=== PATIENT | male | born 1955 | race Caucasian/White ===

== ENCOUNTER → 2018-02-17 15:10 | Outpatient (CLI) | payer OTHER, SELFPAY ==
[2018-02-17 16:45] LABS: AST(SGOT) 22 U/L (15-37); Alanine Aminotransfer ALT/SGPT 28 U/L (16-61); Albumin, Serum 3.8 g/dL (3.2-5.0); Alkaline Phosphatase 112 U/L (45-117); Anion Gap 7 (5-15); BUN 16 mg/dL (7-18); BUN/Creat Ratio 12.2 RATIO (10-20); Bilirubin, Direct 0.12 mg/dL (0.00-0.30); Calcium,Total 9.3 mg/dL (8.5-10.1); Chloride 105 mmol/L (98-107); Cholesterol 147 mg/dL (200); Creatinine, Serum 1.31 mg/dL (0.70-1.30); EST Glomerular Filtration Rate 59 mL/min (>60); Est Glom Filt Rate - Afr Amer 71 mL/min (>60); Globulin 3.9 g/dL (2.2-4.2); Glucose 104 mg/dL (74-106); High Density Lipoprotein 42 mg/dL; Protein, Total 7.7 g/dL (6.4-8.2); Sodium Level 138 mmol/L (136-145); Triglycerides 142 mg/dL; Very Low Density Lipoprotein 28 mg/dL (5-40)
== END ==
PROVIDERS: Family Provider Family Medicine; PCP Family Medicine; Visit Provider Internal Medicine Cardiovascular Disease
DX: I10 Essential (primary) hypertension (principal); E78.5 Hyperlipidemia, unspecified
CPT/HCPCS: 80053; 80061; 82248

== ENCOUNTER 2018-04-01 19:16 | Inpatient (IN) | payer MEDICARE, OTHER, SELFPAY ==
[2018-04-01 19:17] VITALS: BP 149/86; PULSE 87; RESP 23; TEMP 37.2; O2SAT 97; BMI 46.2
--- NOTE | 2018-04-01 19:46 | ED.DCSUM_ITS ---
- ER Visit Summary Date of Service: 04/01/18 Chief Complaint: Right lower extremity cellulitis History of Present Illness: The patient is a 62 M sudden redness right foot up the leg since this morning. Sweats with no fevers. 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 Multiple infections in the past, however last time was 2 years ago. States normally needs IV antibiotics till the redness clears. Denies any injuries. No allergies. Physical Examination: General: Alert and oriented ?3, no acute distress HEENT: Normocephalic, atraumatic. Moist mucosa membranes Neck: supple, nontender. Cardiovascular: Regular rate and rhythm, no murmurs Respiratory: Normal breath sounds, symmetric, no distress Abdomen: Soft, nontender, nondistended Extremities: Nontender, no edema, pulses intact ?4. Right lower extremity: Significant lymphedema right lower extremity. There is erythema of the whole foot and redness up the distal leg. There is no injuries distal to the redness. DPs are intact. No calf swelling. No medial thigh swelling. Neuro: no focal neurological deficits. Test Results: [] Emergency Department Course and Treatment: Sepsis protocol initiated. Patient nontoxic. Patient start IV Zosyn and vancomycin. I did discuss with hospitalist for planned admission. Treatment Plan: [] Disposition: Admission Impression: 1. Right lower extremity cellulitis 2. Chronic lymphedema right lower extremity This note was generated with [employer] dictation software. It may contain incorrect words, spelling, and punctuation that were not noted in review of the chart prior to signing ED Disposition - Plan for ED Patient: Disposition: Acute Care Hospital [facility] [place] Chief Complaint: Cellulitis Diagnosis: Cellulitis of right lower extremity
[2018-04-01 20:34] LABS: Absolute Lymphocyte Count 1.09 X10^3/ul (0.83-4.51); Basophil# 0.01 X10^3/uL; Basophil% 0.1 % (0-1); Eosinophil# 0.19 X10^3/uL; Eosinophils% 2.1 % (0-5); Hematocrit 37.8 % (40-54); Hemoglobin 12.6 g/dl (13.0-16.5); Lymphocyte # 1.09 X10^3/ul (4.0); Lymphocyte % 12.2 % (19-41); Mean Corp Hgb Conc 33.3 g/gl (32-36); Mean Corpuscular Volume 92.9 fL (80-94); Mean Platelet Vol. 9.4 fl (6.2-12.0); Monocyte# 0.66 X10^3/uL; Monocyte% 7.4 % (0-10); Platelet Count 137 K/mm3 (150-450); RBC Distribution Width CV 13.2 % (11.6-14.6); Red Blood Count 4.07 M/mm3 (4.6-6.2)
[2018-04-01 20:37] LABS: POSITIVE COUNT NO; POSITIVE DIFFERENTIAL NO; POSITIVE MORPHOLOGY NO
[2018-04-01 20:43] LABS: International Normalized Ratio 1.2; Prothrombin Time (Protime)PT. 14.9 SECONDS (11.7-14.9)
[2018-04-01 20:44] LABS: Partial Thromboplast Time 29.8 Seconds (24.1-36.2)
[2018-04-01 20:45] LABS: Lactic Acid 1.3 mmol/L (0.4-2.0)
[2018-04-01 20:53] LABS: ALB/GLOB Ratio 0.9 RATIO (0.9-2.4); AST(SGOT) 14 U/L (15-37); Alanine Aminotransfer ALT/SGPT 20 U/L (16-61); Albumin, Serum 3.3 g/dL (3.2-5.0); Alkaline Phosphatase 98 U/L (45-117); Anion Gap 9 (5-15); BUN 15 mg/dL (7-18); BUN/Creat Ratio 11.1 RATIO (10-20); Calcium,Total 9.3 mg/dL (8.5-10.1); Chloride 107 mmol/L (98-107); Creatinine, Serum 1.35 mg/dL (0.70-1.30); EST Glomerular Filtration Rate 57 mL/min (>60); Est Glom Filt Rate - Afr Amer 69 mL/min (>60); Estimated Creatinine Clearance 60.43 ml/min; Globulin 3.7 g/dL (2.2-4.2); Glucose 102 mg/dL (74-106); Potassium 3.8 mmol/L (3.5-5.1); Sodium Level 140 mmol/L (136-145)
[2018-04-01 20:54] VITALS: BP 120/65; PULSE 71; RESP 20; TEMP 37.2; O2SAT 98
--- NOTE | 2018-04-01 21:12 | PCM.HP.STD ---
Problem List (1) Lymphedema of right lower extremity Status: Chronic (2) Cellulitis of right lower extremity Status: Acute (3) Automatic implantable cardioverter-defibrillator in situ Status: Chronic (4) Chronic systolic congestive heart failure Status: Chronic (5) Presence of stent in coronary artery Status: Chronic Comment: PTCA/stent to prox LAD 02/02/05; PTCA/stent instent restenosis of prox LAD 10/15/13 (6) Atherosclerotic heart disease of [place] coronary artery without angina pectoris Status: Chronic Qualifiers: Comment: CABG x2- PARK to LAD, SARIAH to OM 06/01/05; PTCA/stent to prox LAD 02/02/05; PTCA/stent instent restenosis of prox LAD 10/15/13 (7) Shortness of breath Status: Chronic (8) Postsurgical aortocoronary bypass status Status: Chronic Comment: CABG x2- PARK to LAD, SARIAH to OM 06/01/05 (9) History of tobacco abuse Status: Acute (10) Family history of CVA Status: Chronic (11) Ischemic cardiomyopathy Status: Chronic (12) Hyperlipidemia Status: Chronic Qualifiers: (13) Hypertension Status: Chronic Qualifiers: (14) ICD (implantable cardioverter-defibrillator) in place Status: Chronic Comment: ICD Implant 2009 History of Present Illness Date of Admission: 04/01/18 Chief Complaint: Right lower extremity redness and swelling The patient is a 62 year old M with extensive cardiac history including coronary artery disease status post stent and two-vessel CABG, chronic systolic heart failure EF 45% and 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 Patient denies any pain, fever nausea vomiting or systemic symptoms. As per the patient, his redness and swelling correlates with cellulitis and had multiple admissions for similar condition in the past and requires about 3-5 days of IV antibiotics in the hospital. In ER, his vitals are stable. There is no leukocytosis. Patient started on IV vancomycin in ER. Past Medical History Past Medical History (Chronic Problems): Chronic Problems (Last Reviewed 01/08/18 @ 14:35 by Divina Ahumada) Lymphedema of right lower extremity (Chronic) Automatic implantable cardioverter-defibrillator in situ (Chronic) Chronic systolic congestive heart failure (Chronic) Presence of stent in coronary artery (Chronic) PTCA/stent to prox LAD 02/02/05; PTCA/stent instent restenosis of prox LAD 10/15/13 Atherosclerotic heart disease of [place] coronary artery without angina pectoris (Chronic) CABG x2- PARK to LAD, SARIAH to OM 06/01/05; PTCA/stent to prox LAD 02/02/05; PTCA/stent instent restenosis of prox LAD 10/15/13 Shortness of breath (Chronic) Postsurgical aortocoronary bypass status (Chronic ~06/01/05) CABG x2- PARK to LAD, SARIAH to OM 06/01/05 Family history of CVA (Chronic) Ischemic cardiomyopathy (Chronic) Hyperlipidemia (Chronic) Hypertension (Chronic) ICD (implantable cardioverter-defibrillator) in place (Chronic ~08/17/10) ICD Implant 2009 Allergies No Known Allergies Allergy (Verified 04/01/18 19:17) Home Medications: Ambulatory Orders Medication Instructions Recorded Atorvastatin Calcium [Lipitor] 40 mg PO DAILY 10/05/13 Montelukast [Singulair] 10 mg PO DAILY 10/05/13 Niacin SA [Niaspan] 1,000 mg PO QHS 10/05/13 Escitalopram Oxalate [Lexapro] 20 mg PO DAILY 11/02/14 Furosemide [Lasix] 40 mg PO DINNER 05/24/17 Furosemide [Lasix] 80 mg PO BREAKFAST 05/24/17 Meloxicam [Mobic] 15 mg PO DAILY 05/24/17 Temazepam [Restoril] 30 mg PO QHS 05/24/17 Ranolazine [Ranexa] 1 tab PO BID 06/08/17 Aspirin [Aspirin, Baby] 81 mg PO QHS 06/09/17 Acetaminophen [Tylenol Tablet] 650 mg PO Q6H PRN PRN tab 06/10/17 gabapentin 600 mg tablet 600 mg PO .Q HS tab 01/06/18 loratadine 10 mg tablet 10 mg PO QDAY 01/06/18 bupropion HCl SR 150 mg tablet,12 150 mg PO BID 01/08/18 hr sustained-release pantoprazole 40 mg tablet,delayed 40 mg PO DAILY tab 01/08/18 release potassium chloride ER 20 mEq 40 meq PO QDAY tab 01/08/18 tablet,extended release ramipril 5 mg capsule 2.5 mg PO DAILY cap 01/08/18 isosorbide mononitrate ER 60 mg 60 mg PO BID #180 tab 01/15/18 tablet,extended release 24 hr nitroglycerin 0.4 mg sublingual 0.4 mg SUBLINGUAL Q5M PRN #25 tab 01/15/18 tablet clopidogrel 75 mg tablet 75 mg PO DAILY #90 tab 01/29/18 carvedilol 25 mg tablet 25 mg PO BID #180 tab 03/10/18 Surgical History: coronary bypass surgery - CABG x 2., total hip arthroplasty, tonsillectomy, - - RLE surgery for sarcoma w/ follow-up excisions, AICD. Psychiatric History: No pertinent psych hx Smoking Status: Former smoker - *Family History Maternal History Items: Heart Disease, Stroke Paternal History Items: Cancer - Father with history of liver CA., No pertinent history VTE Information - Inpt Only VTE Present on Admission: No VTE Mechan Device Prophylaxis: SCD's, Knee High IJEOMA Hose VTE Pharm Prophylaxis ordered?: Yes Patient Problems: Active and Suspected Problems (Last Reviewed 01/08/18 @ 14:35 by Divina Ahumada) Cellulitis of right lower extremity (Acute) - Physical Exam General: Alert, Oriented x3, Cooperative HEENT: Atraumatic, PERRLA, EOMI, Normocephalic Neck: Supple, No JVD, Negative Carotid Bruits Lungs: Clear to auscultation Cardiovascular: Regular rate, Regular Rhythm, Normal S1, Normal S2, No murmurs, - - CABG scar Abdomen: Bowel Sounds Present, Soft, Non Tender, Non-Distended Extremities: Capillary Refill Less than 3 Seconds, Edema Skin: Rash Present - Right foot and lower leg erythema. No tenderness. No obvious open wound Musculoskeletal: No Tenderness to Palpation of Joints or Extremities Neurological: Cranial nerves II-XII grossly intact Psych/Mental Status: Normal Affect, Appropriate Vital Signs Temp Pulse Resp BP Pulse Ox 98.9 F 71 20 H 120/65 98 04/01/18 20:54 04/01/18 20:54 04/01/18 20:54 04/01/18 20:54 04/01/18 20:54 Oxygen Delivery Method Room Air Weight: 331 lb 5.676 oz Body Mass Index (BMI) 46.2 Laboratory Tests Past 24 Hrs 04/01/18 04/01/18 04/01/18 20:14 20:14 20:14 WBC 9.0 RBC 4.07 L Hgb 12.6 L Hct 37.8 L MCV 92.9 MCH 31.0 MCHC 33.3 RDW 13.2 RDW Differential 45.0 H Plt Count 137 L MPV 9.4 Immature Gran % (Auto) 0.200 Neut % (Auto) 78.0 H Lymph % (Auto) 12.2 L Person % (Auto) 7.4 Eos % (Auto) 2.1 Baso % (Auto) 0.1 Absolute Neuts (auto) 7.0 Absolute Lymphs (auto) 1.09 Total Counted Not Reportable PT INR APTT Sodium 140 Potassium 3.8 Chloride 107 Carbon Dioxide 24.0 Anion Gap 9 BUN 15 Creatinine 1.35 H Estim Creat Clear Calc 60.43 Est GFR (MDRD) Af Amer 69 Est GFR (MDRD) Non-Af 57 L BUN/Creatinine Ratio 11.1 Glucose 102 Lactic Acid 1.3 Calcium 9.3 Total Bilirubin 0.40 AST 14 L ALT 20 Alkaline Phosphatase 98 Total Protein 7.0 Albumin 3.3 Globulin 3.7 Albumin/Globulin Ratio 0.9 04/01/18 20:14 WBC RBC Hgb Hct MCV MCH MCHC RDW RDW Differential Plt Count MPV Immature Gran % (Auto) Neut % (Auto) Lymph % (Auto) Person % (Auto) Eos % (Auto) Baso % (Auto) Absolute Neuts (auto) Absolute Lymphs (auto) Total Counted PT 14.9 INR 1.2 APTT 29.8 Sodium Potassium Chloride Carbon Dioxide Anion Gap BUN Creatinine Estim Creat Clear Calc Est GFR (MDRD) Af Amer Est GFR (MDRD) Non-Af BUN/Creatinine Ratio Glucose Lactic Acid Calcium Total Bilirubin AST ALT Alkaline Phosphatase Total Protein Albumin Globulin Albumin/Globulin Ratio Assessment/Plan Active and Suspected Problems (Last Reviewed 01/08/18 @ 14:35 by Divina Ahumada) Cellulitis of right lower extremity (Acute) The patient is a 62 year old M with extensive cardiac history including coronary artery disease status post stent and two-vessel CABG, chronic systolic heart failure EF 45% and 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 Patient denies any pain, fever nausea vomiting or systemic symptoms. As per the patient, his redness and swelling correlates with cellulitis and had multiple admissions for similar condition in the past and requires about 3-5 days of IV antibiotics in the hospital. In ER, his vitals are stable. There is no leukocytosis. Patient started on IV vancomycin in ER. 1. Right lower extremity lymphedema with venous congestion with possibility of cellulitis: It is hard to rule out cellulitis in view of chronic lymphedema and venous congestion. Patient is being admitted on the [facility] floor. Right lower leg venous Doppler ordered. Empirically started on IV cefazolin. Right lower leg elevation, Aj wrap bandage and other conservative management. Wound nurse consult. 2. Cardiac conditions: Coronary artery status post stent, two-vessel CABG, chronic systolic heart failure, EF 35% status post AICD: As per last echo in December 2015, EF 35% with moderate segmental systolic dysfunction and mildly dilated LV. Trivial TR and MR. new cardiac medications. No active cardiac concern. 3. Hypertension, dyslipidemia, history of nicotine use, (ex-smoker): Home medication reconciliation done. DVT prophylaxis: On heparin 5000 units subcutaneous twice daily. Code Visit Inpatient E&M: 27334 Init Hosp L3
[2018-04-01 21:33] VITALS: BP 120/65; PULSE 71; RESP 20; O2SAT 98
[2018-04-01 21:54] VITALS: BMI 44.7; BMI 44.8
[2018-04-01 22:20] VITALS: BP 134/78; PULSE 69; RESP 18; TEMP 36.8; O2SAT 97
[2018-04-01 22:41] LABS: Erythrocyte Sedimentation Rate 32 mm/hr (0-20)
[2018-04-01 22:56] LABS: Bedside Glucose 131 mg/dL (70-110)
[2018-04-01 23:02] LABS: Hemoglobin A1c 5.5 % (4.2-6.3)
[2018-04-01] MEDS: Isosorbide Mononitrate 60 MG Tablet PO (23:02)
[2018-04-01] MEDS: Gabapentin 600 MG Tablet PO (23:02)
[2018-04-01] MEDS: Ranolazine 500 MG Tablet 1000 MG PO (23:02)
[2018-04-01] MEDS: Heparin Injection (Vial) 5,000 UNIT/ML VIAL 5000 UNIT SC (23:03)
[2018-04-01] MEDS: buPROPion (SR) 150 MG Tablet.SA PO (23:03)
[2018-04-01] MEDS: Carvedilol 25 MG Tablet PO (23:03)
[2018-04-01] MEDS: Temazepam 15 MG Capsule 30 MG PO (23:03)
[2018-04-01] MEDS: Aspirin 81 MG TAB.CHEW PO (23:03)
[2018-04-02] MEDS: Cefazolin 1 GM/50 ML BAG IV ×2 (00:21→06:18)
--- NOTE | 2018-04-02 05:55 | VDLE_ITS ---
Reason For Study: RLE lymphedema with cellulitis RIGHT LEFT GSV is normal. GSV is normal. CFV is compressible, spontaneous, phasic, CFV is compressible, spontaneous, phasic, competent and demonstrates normal competent, and demonstrates normal augmentation. augmentation. FV is compressible, spontaneous, phasic, FV is compressible, spontaneous, phasic, competent and demonstrates normal competent and demonstrates normal augmentation. augmentation. POP V is compressible, spontaneous, phasic, POP V is compressible, spontaneous, phasic, competent and demonstrates normal competent and demonstrates normal augmentation. augmentation. T/P Trunk is compressible. T/P Trunk is compressible. PTV is compressible. PTV is compressible. RT PerV is compressible. LT PerV is compressible. PTV and PER V imaged distally only. Procedure Exam performed portable in patient room. Technically difficult due to extreme swelling RLE. A preliminary report was called and/or faxed to [facility]. Interpretation Summary Deep veins of the lower extremities are bilaterally patent and compressible segmentally. There is no evidence of deep vein thrombosis on either side. Valvular competence appears intact within the proximal deep venous systems bilaterally. The greater saphenous veins appear bilaterally patent and compressible segmentally. Portions of the right posterior tibial vein and peroneal vein were not visualized due to swelling. Ordering Physician: Adán Miles Referring Physician: Speedy Mtz Performed By: Chinyere Langston RVT
[2018-04-02 06:15] VITALS: BP 114/59; PULSE 97; RESP 16; TEMP 36.6; O2SAT 97
[2018-04-02 06:28] LABS: Absolute Lymphocyte Count 0.23 X10^3/ul (0.83-4.51); Absolute Neutrophil Count 5.7 X10^3/uL (2.0-7.7); Basophil# 0.01 X10^3/uL; Basophil% 0.2 % (0-1); Eosinophil# 0.11 X10^3/uL; Eosinophils% 1.7 % (0-5); Hematocrit 36.7 % (40-54); Hemoglobin 12.2 g/dl (13.0-16.5); Lymphocyte # 0.23 X10^3/ul (4.0); Lymphocyte % 3.6 % (19-41); Mean Corp Hgb Conc 33.2 g/gl (32-36); Mean Corpuscular Volume 93.4 fL (80-94); Monocyte# 0.23 X10^3/uL; Monocyte% 3.6 % (0-10); Neutrophil # 5.73 X10^3/uL (2.7-7.7); Neutrophil % 90.7 % (47-70); Platelet Count 109 K/mm3 (150-450); RBC Distribution Width CV 13.4 % (11.6-14.6); RBC Distribution Width SD 45.9 fl (35.1-43.9); Red Blood Count 3.93 M/mm3 (4.6-6.2); White Blood Count 6.3 K/mm3 (4.4-11.0)
[2018-04-02 06:30] LABS: Bedside Glucose 130 mg/dL (70-110)
[2018-04-02 06:32] LABS: Differential Indicated SCAN CRITERIA MET; POSITIVE COUNT NO; POSITIVE DIFFERENTIAL YES; POSITIVE MORPHOLOGY NO
[2018-04-02 06:34] LABS: Anion Gap 5 (5-15); BUN 14 mg/dL (7-18); BUN/Creat Ratio 10.4 RATIO (10-20); Calcium,Total 8.9 mg/dL (8.5-10.1); Chloride 109 mmol/L (98-107); Creatinine, Serum 1.35 mg/dL (0.70-1.30); EST Glomerular Filtration Rate 57 mL/min (>60); Est Glom Filt Rate - Afr Amer 69 mL/min (>60); Estimated Creatinine Clearance 62.27 ml/min; Glucose 121 mg/dL (74-106); Potassium 4.2 mmol/L (3.5-5.1); Sodium Level 140 mmol/L (136-145)
[2018-04-02 06:54] LABS: Differential Comment SCANNED
--- NOTE | 2018-04-02 09:51 | PCM.PN.HOSP ---
Patient Problems: Active and Suspected Problems (Last Reviewed 01/08/18 @ 14:35 by Divina Ahumada) Cellulitis of right lower extremity (Acute) Subjective: States that his right leg is still red. Concerned about having his antibiotics changed to oral he said the last time this happened (2013) his leg got worse and he had to be transferred to [facility]. He did not have surgery there, but treated with antibiotics. Vitals/I&O's: Vital Signs Temp Pulse Resp BP Pulse Ox 36.6 C 97 16 114/59 L 97 04/02/18 06:15 04/02/18 06:15 04/02/18 06:15 04/02/18 06:15 04/02/18 06:15 Oxygen Delivery Method Room Air Weight: 149.7 kg Body Mass Index (BMI) 44.7 Intake and Output for Last 24 Hours 03/31/18 04/01/18 04/02/18 23:59 23:59 23:59 Intake Total 1659 / 1659 Output Total 400 / 400 Balance 1259 / 1259 General: Alert, Cooperative, No apparent distress, - - afebrile HEENT: Atraumatic, Normocephalic Lungs: Clear to auscultation, Normal air movement, No rhonchi, No wheeze Cardiovascular: Regular rate, Regular Rhythm, Normal S1, Normal S2, No murmurs Abdomen: Bowel Sounds Present, Soft, Non Tender, Non-Distended, Obese Extremities: - - profound lymphedema of RLE Skin: - - lichenification and stasis dermatitis of RLE. Bright erythema on right foot. No fluctuance note. Psych/Mental Status: Normal Affect, Appropriate Laboratory Results 04/01/18 22:51: POC Glucose 131 H 04/02/18 06:04: WBC 6.3, RBC 3.93 L, Hgb 12.2 L, Hct 36.7 L, MCV 93.4, MCH 31.0, MCHC 33.2, RDW 13.4, RDW Differential 45.9 H, Plt Count 109 L, MPV 9.0, Immature Gran % (Auto) 0.200, Neut % (Auto) 90.7 H, Lymph % (Auto) 3.6 L, [place] % (Auto) 3.6, Eos % (Auto) 1.7, Baso % (Auto) 0.2, Absolute Neuts (auto) 5.7, Absolute Lymphs (auto) 0.23 L, Total Counted Not Reportable, Differential Comment SCANNED 04/02/18 06:04: Sodium 140, Potassium 4.2, Chloride 109 H, Carbon Dioxide 26.0, Anion Gap 5, BUN 14, Creatinine 1.35 H, Estim Creat Clear Calc 62.27, Est GFR (MDRD) Af Amer 69, Est GFR (MDRD) Non-Af 57 L, BUN/Creatinine Ratio 10.4, Glucose 121 H, Calcium 8.9 04/02/18 06:25: POC Glucose 130 H Current Medications Acetaminophen (Tylenol) 650 mg PO Q6H PRN PRN PRN Reason: Mild Pain (scale 0-3)/T>100.7 Aspirin (Aspirin, Baby) 81 mg PO QHS [facility] Last Admin: 04/01/18 23:03 Dose: 81 mg Atorvastatin Calcium (Lipitor) 40 mg PO QHS [facility] Bupropion HCl (Wellbutrin Sr (150mg Tablets)) 150 mg PO BID [facility] Last Admin: 04/01/18 23:03 Dose: 150 mg Carvedilol (Coreg) 25 mg PO BID [facility] Last Admin: 04/01/18 23:03 Dose: 25 mg Clopidogrel Bisulfate (Plavix) 75 mg PO DAILY [facility] Dextrose (D50w Syringe) 0 gm IV X1 PRN; Protocol PRN Reason: Hypoglycemia Docusate Sodium (Colace) 200 mg PO BID PRN PRN PRN Reason: Constipation Escitalopram Oxalate (Lexapro) 20 mg PO DAILY [facility] Furosemide (Lasix) 40 mg PO DINNER [facility] Furosemide (Lasix) 80 mg PO BREAKFAST [facility] Gabapentin (Neurontin) 600 mg PO QHS [facility] Last Admin: 04/01/18 23:02 Dose: 600 mg Glucagon () 1 mg IM .X1 PRN PRN Reason: Hypoglycemia Heparin Sodium (Porcine) (Heparin Na) 5,000 unit SC BID [facility] Last Admin: 04/01/18 23:03 Dose: 5,000 units Cefazolin Sodium () 1 gm in 50 mls @ 150 mls/hr IV Q8 [facility] Last Admin: 04/02/18 06:18 Dose: 150 mls/hr Isosorbide Mononitrate (Imdur) 60 mg PO BID [facility] Last Admin: 04/01/18 23:02 Dose: 60 mg Loratadine (Claritin) 10 mg PO DAILY [facility] Montelukast Sodium (Singulair) 10 mg PO DAILY [facility] Niacin (Niaspan) 1,000 mg PO QHS [facility] Last Admin: 04/01/18 23:02 Dose: 1,000 mg Nitroglycerin (Nitrostat) 0.4 mg SUBLINGUAL Q5M PRN PRN Reason: chest pain Ondansetron HCl (Zofran) 4 mg IV Q6H PRN PRN PRN Reason: Nausea Oxycodone HCl (Oxyir) 5 mg PO Q4H PRN PRN PRN Reason: Moderate Pain (pain scale 4-5) Pantoprazole Sodium (Protonix) 40 mg PO DAILY [facility] Polyethylene Glycol (Miralax) 17 gm PO DAILY [facility] Potassium Chloride (K-Dur) 40 meq PO DAILY [facility] Ramipril (Altace) 2.5 mg PO DAILY [facility] Ranolazine (Ranexa) 1,000 mg PO BID [facility] Last Admin: 04/01/18 23:02 Dose: 1,000 mg Sodium Chloride () 5 - 30 ml IV UD PRN PRN Reason: SALINE FLUSH Temazepam (Restoril) 30 mg PO QHS [facility] Last Admin: 04/01/18 23:03 Dose: 30 mg Medical Necessity - Tobacco Use Smoking Status: Former smoker Assessment/Plan Active and Suspected Problems (Last Reviewed 01/08/18 @ 14:35 by Divina Ahumada) Cellulitis of right lower extremity (Acute) 1. RLE cellulitis suspect strep given bright erythema on Cefazolin pt very concerned about going on oral antibiotics. I informed him that would likely be the plan, but not at this time. He said he wouldn't do it without a fight. I told him that we will continue to assess him and make appropriate decisions, but keep him informed in the process. will consult ID for long-term recs complicated by his lymphedema from sarcoma and LN resection + XRT duplex pending. 2. CKD 3 stable avoid nephrotoxic agents. 3. CAD: stable s/p CABG x2- PARK to LAD, SARIAH to OM 06/01/05; PTCA/stent to prox LAD 02/02/05; PTCA/stent instent restenosis of prox LAD 10/15/13 DAPT, HIS follow up with Dr. Mtz as outpt in July for 6 month follow up (last seen in January) 4. HFrEF EF 35% Dec 17 s/p AICD continue lasix, coreg, imdur, imdur compensated 5. DVT proph: SQ heparin no SCDs given lymphedema Greater than 40 minutes of which greater than 50% of the time was counseling the patient about cellulitis and potential treatment options. Code Visit Inpatient E&M: 79473 Subs Hosp L3
[2018-04-02] MEDS: Furosemide 80 MG Tablet PO (09:59)
[2018-04-02 10:00] VITALS: BP 125/75; PULSE 95; RESP 18; TEMP 36.7; O2SAT 96
[2018-04-02] MEDS: Loratadine 10 MG Tablet PO (10:00)
[2018-04-02] MEDS: Ramipril 2.5 MG Capsule PO (10:00)
[2018-04-02] MEDS: Isosorbide Mononitrate 60 MG Tablet PO ×2 (10:01→22:13)
[2018-04-02] MEDS: Heparin Injection (Vial) 5,000 UNIT/ML VIAL 5000 UNIT SC ×2 (10:01→22:14)
[2018-04-02] MEDS: Clopidogrel Bisulfate 75 MG Tablet PO (10:01)
[2018-04-02] MEDS: Escitalopram Oxalate 20 MG Tablet PO (10:01)
[2018-04-02] MEDS: Polyethylene Glycol 3350 17 GM PACKET PO (10:01)
[2018-04-02] MEDS: Montelukast 10 MG Tablet PO (10:02)
[2018-04-02] MEDS: Ranolazine 500 MG Tablet 1000 MG PO ×2 (10:02→22:13)
[2018-04-02] MEDS: Pantoprazole Sodium 40 MG Tablet PO (10:02)
--- NOTE | 2018-04-02 10:11 | NURSING ---
was asked to see patient for chronic lypmhedema to the RLE. pt states he had sarcoma of the right thigh in the past and the lymphatic system was compromised after surgery and radiation. patient does have lymphedema pumps at home but states he does not use them and refuses to wear compression. pt states that none of it helps so why waste my time. discussed with Dr Butler. there are no open areas noted. there is some dry flaky skin noted. orders received for Ang. will monitor as needed.
--- NOTE | 2018-04-02 10:12 | PN_ITS ---
Patient Problems: Active and Suspected Problems (Last Reviewed 01/08/18 @ 14:35 by Divina Ahumada) Cellulitis of right lower extremity (Acute) Subjective: States that his right leg is still red. Concerned about having his antibiotics changed to oral he said the last time this happened (2013) his leg got worse and he had to be transferred to [facility]. He did not have surgery there, but treated with antibiotics. Vitals/I&O's: Vital Signs Temp Pulse Resp BP Pulse Ox 36.6 C 97 16 114/59 L 97 04/02/18 06:15 04/02/18 06:15 04/02/18 06:15 04/02/18 06:15 04/02/18 06:15 Oxygen Delivery Method Room Air Weight: 149.7 kg Body Mass Index (BMI) 44.7 Intake and Output for Last 24 Hours 03/31/18 04/01/18 04/02/18 23:59 23:59 23:59 Intake Total 1659 / 1659 Output Total 400 / 400 Balance 1259 / 1259 General: Alert, Cooperative, No apparent distress, - - afebrile HEENT: Atraumatic, Normocephalic Lungs: Clear to auscultation, Normal air movement, No rhonchi, No wheeze Cardiovascular: Regular rate, Regular Rhythm, Normal S1, Normal S2, No murmurs Abdomen: Bowel Sounds Present, Soft, Non Tender, Non-Distended, Obese Extremities: - - profound lymphedema of RLE Skin: - - lichenification and stasis dermatitis of RLE. Bright erythema on right foot. No fluctuance note. Psych/Mental Status: Normal Affect, Appropriate Laboratory Results 04/01/18 22:51: POC Glucose 131 H 04/02/18 06:04: WBC 6.3, RBC 3.93 L, Hgb 12.2 L, Hct 36.7 L, MCV 93.4, MCH 31.0 , MCHC 33.2, RDW 13.4, RDW Differential 45.9 H, Plt Count 109 L, MPV 9.0, Immature Gran % (Auto) 0.200, Neut % (Auto) 90.7 H, Lymph % (Auto) 3.6 L, [place] % (Auto) 3.6, Eos % (Auto) 1.7, Baso % (Auto) 0.2, Absolute Neuts (auto) 5.7, Absolute Lymphs (auto) 0.23 L, Total Counted Not Reportable, Differential Comment SCANNED 04/02/18 06:04: Sodium 140, Potassium 4.2, Chloride 109 H, Carbon Dioxide 26.0, Anion Gap 5, BUN 14, Creatinine 1.35 H, Estim Creat Clear Calc 62.27, Est GFR ( MDRD) Af Amer 69, Est GFR (MDRD) Non-Af 57 L, BUN/Creatinine Ratio 10.4, Glucose 121 H, Calcium 8.9 04/02/18 06:25: POC Glucose 130 H Current Medications Acetaminophen (Tylenol) 650 mg PO Q6H PRN PRN PRN Reason: Mild Pain (scale 0-3)/T>100.7 Aspirin (Aspirin, Baby) 81 mg PO QHS REPLACED BY [facility] Last Admin: 04/01/18 23:03 Dose: 81 mg Atorvastatin Calcium (Lipitor) 40 mg PO QHS REPLACED BY [facility] Bupropion HCl (Wellbutrin Sr (150mg Tablets)) 150 mg PO BID REPLACED BY [facility] Last Admin: 04/01/18 23:03 Dose: 150 mg Carvedilol (Coreg) 25 mg PO BID REPLACED BY [facility] Last Admin: 04/01/18 23:03 Dose: 25 mg Clopidogrel Bisulfate (Plavix) 75 mg PO DAILY REPLACED BY [facility] Dextrose (D50w Syringe) 0 gm IV X1 PRN; Protocol PRN Reason: Hypoglycemia Docusate Sodium (Colace) 200 mg PO BID PRN PRN PRN Reason: Constipation Escitalopram Oxalate (Lexapro) 20 mg PO DAILY REPLACED BY [facility] Furosemide (Lasix) 40 mg PO DINNER REPLACED BY [facility] Furosemide (Lasix) 80 mg PO BREAKFAST REPLACED BY [facility] Gabapentin (Neurontin) 600 mg PO QHS REPLACED BY [facility] Last Admin: 04/01/18 23:02 Dose: 600 mg Glucagon () 1 mg IM .X1 PRN PRN Reason: Hypoglycemia Heparin Sodium (Porcine) (Heparin Na) 5,000 unit SC BID REPLACED BY [facility] Last Admin: 04/01/18 23:03 Dose: 5,000 units Cefazolin Sodium () 1 gm in 50 mls @ 150 mls/hr IV Q8 REPLACED BY [facility] Last Admin: 04/02/18 06:18 Dose: 150 mls/hr Isosorbide Mononitrate (Imdur) 60 mg PO BID REPLACED BY [facility] Last Admin: 04/01/18 23:02 Dose: 60 mg Loratadine (Claritin) 10 mg PO DAILY REPLACED BY [facility] Montelukast Sodium (Singulair) 10 mg PO DAILY MARYANNE Niacin (Niaspan) 1,000 mg PO QHS REPLACED BY [facility] Last Admin: 04/01/18 23:02 Dose: 1,000 mg Nitroglycerin (Nitrostat) 0.4 mg SUBLINGUAL Q5M PRN PRN Reason: chest pain Ondansetron HCl (Zofran) 4 mg IV Q6H PRN PRN PRN Reason: Nausea Oxycodone HCl (Oxyir) 5 mg PO Q4H PRN PRN PRN Reason: Moderate Pain (pain scale 4-5) Pantoprazole Sodium (Protonix) 40 mg PO DAILY REPLACED BY [facility] Polyethylene Glycol (Miralax) 17 gm PO DAILY REPLACED BY [facility] Potassium Chloride (K-Dur) 40 meq PO DAILY MARYANNE Ramipril (Altace) 2.5 mg PO DAILY MARYANNE Ranolazine (Ranexa) 1,000 mg PO BID REPLACED BY [facility] Last Admin: 04/01/18 23:02 Dose: 1,000 mg Sodium Chloride () 5 - 30 ml IV UD PRN PRN Reason: SALINE FLUSH Temazepam (Restoril) 30 mg PO QHS REPLACED BY [facility] Last Admin: 04/01/18 23:03 Dose: 30 mg Medical Necessity - Tobacco Use Smoking Status: Former smoker Assessment/Plan Active and Suspected Problems (Last Reviewed 01/08/18 @ 14:35 by Divina Ahumada) Cellulitis of right lower extremity (Acute) 1. RLE cellulitis * suspect strep given bright erythema * on Cefazolin * pt very concerned about going on oral antibiotics. I informed him that would likely be the plan, but not at this time. He said he wouldn't do it without a fight. I told him that we will continue to assess him and make appropriate decisions, but keep him informed in the process. 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 2. CKD 3 * stable * avoid nephrotoxic agents. 3. CAD: * stable * s/p CABG x2- PARK to LAD, SARIAH to OM 06/01/05; PTCA/stent to prox LAD 02/02/05 ; PTCA/stent instent restenosis of prox LAD 10/15/13 * DAPT, HIS * follow up with Dr. Mtz as outpt in July for 6 month follow up (last seen in January) 4. HFrEF * EF 35% Dec 17 * s/p AICD * continue lasix, coreg, imdur, imdur * compensated 5. DVT proph: SQ heparin * no SCDs given lymphedema Greater than 40 minutes of which greater than 50% of the time was counseling the patient about cellulitis and potential treatment options. Code Visit Inpatient E&M: 75500 [facility] L3
[2018-04-02 10:33] VITALS: PULSE 80
--- NOTE | 2018-04-02 10:46 | CASEMGMT ---
JUANCHO POON Face to Face with patient for initial transition planning/care coordination assessment. JUANCHO POON introduced self and role at [facility]. Patient sitting in chair, alert and oriented. Patient willing to participate in assessment and is able to answer all questions appropriately. Care providers, pharmacy, and demographics verified. See link attached. Patient wishes to discharge home, denies need for home health at this time. Patient states he has no further needs or concerns at this time. CM to follow for discharge planning needs that may arise. Disposition Plan: Patient to discharge home with family support and follow-up plans in place. JUANCHO POON will monitor for need for HHC.
[2018-04-02] MEDS: buPROPion (SR) 150 MG Tablet.SA PO ×2 (13:26→22:14)
[2018-04-02] MEDS: Carvedilol 25 MG Tablet PO ×2 (13:26→22:13)
[2018-04-02] MEDS: Cefazolin 2 GM in 0.9% Normal Saline 100 ML IV ×2 (13:27→22:12)
--- NOTE | 2018-04-02 13:28 | PCM.HP.ID ---
Problem List (1) Cellulitis of right lower extremity Status: Acute Reason for Consult: cellulitis Consulted by: Dr. Butler History of Present Illness: The patient is a 62 year old M with chronic RLE lymphedema and recurrent cellulitis who presented 04/01 with 2 days of progressive RLE mild pain, redness, loss of appetite, and malaise. Had noticed tiny scab on one toe of R foot. No fever or chills. Has been getting monthly Bicillin injections for almost a year as preventative measure. Next dose due next week. Frequency of infections is much better since starting injections. Came to ED, given vanc/zosyn x1, now on cefazolin, feeling a little better. Full ROS performed and neg except as noted above. - Medical History Past Medical History (Chronic Problems): Chronic Problems (Last Reviewed 01/08/18 @ 14:35 by Divina Ahumada) Lymphedema of right lower extremity (Chronic) Automatic implantable cardioverter-defibrillator in situ (Chronic) Chronic systolic congestive heart failure (Chronic) Presence of stent in coronary artery (Chronic) PTCA/stent to prox LAD 02/02/05; PTCA/stent instent restenosis of prox LAD 10/15/13 Atherosclerotic heart disease of [place] coronary artery without angina pectoris (Chronic) CABG x2- PARK to LAD, SARIAH to OM 06/01/05; PTCA/stent to prox LAD 02/02/05; PTCA/stent instent restenosis of prox LAD 10/15/13 Shortness of breath (Chronic) Postsurgical aortocoronary bypass status (Chronic ~06/01/05) CABG x2- PARK to LAD, SARIAH to OM 06/01/05 Family history of CVA (Chronic) Ischemic cardiomyopathy (Chronic) Hyperlipidemia (Chronic) Hypertension (Chronic) ICD (implantable cardioverter-defibrillator) in place (Chronic ~08/17/10) ICD Implant 2009 Allergies/Adverse Reactions: Allergies No Known Allergies Allergy (Verified 04/01/18 19:17) Home Medications: Ambulatory Orders Medication Instructions Recorded Atorvastatin Calcium [Lipitor] 40 mg PO DINNER 10/05/13 Montelukast [Singulair] 10 mg PO DAILY 10/05/13 Niacin SA [Niaspan] 1,000 mg PO QHS 10/05/13 Escitalopram Oxalate [Lexapro] 20 mg PO DAILY 11/02/14 Furosemide [Lasix] 40 mg PO DINNER 05/24/17 Furosemide [Lasix] 80 mg PO BREAKFAST 05/24/17 Meloxicam [Mobic] 15 mg PO DAILY 05/24/17 Temazepam [Restoril] 30 mg PO QHS 05/24/17 Ranolazine [Ranexa] 1 tab PO BID 06/08/17 Aspirin [Aspirin, Baby] 81 mg PO QHS 06/09/17 Acetaminophen [Tylenol Tablet] 650 mg PO Q6H PRN PRN tab 06/10/17 gabapentin 600 mg tablet 600 mg PO .Q HS tab 01/06/18 loratadine 10 mg tablet 10 mg PO QDAY 01/06/18 bupropion HCl SR 150 mg tablet,12 150 mg PO BID 01/08/18 hr sustained-release pantoprazole 40 mg tablet,delayed 40 mg PO DAILY tab 01/08/18 release potassium chloride ER 20 mEq 40 meq PO QDAY tab 01/08/18 tablet,extended release ramipril 5 mg capsule 2.5 mg PO DAILY cap 01/08/18 isosorbide mononitrate ER 60 mg 60 mg PO BID #180 tab 01/15/18 tablet,extended release 24 hr nitroglycerin 0.4 mg sublingual 0.4 mg SUBLINGUAL Q5M PRN #25 tab 01/15/18 tablet clopidogrel 75 mg tablet 75 mg PO DAILY #90 tab 01/29/18 carvedilol 25 mg tablet 25 mg PO BID #180 tab 03/10/18 - Social History SMOKING STATUS:: Former smoker Vital Signs Temp Pulse Resp BP Pulse Ox 98.0 F 80 18 125/75 H 96 04/02/18 10:00 04/02/18 10:33 04/02/18 10:00 04/02/18 10:00 04/02/18 10:00 Oxygen Delivery Method Room Air Weight: 149.7 kg Body Mass Index (BMI) 44.7 Laboratory Tests Past 24 Hrs 04/02/18 04/02/18 06:04 06:04 WBC 6.3 RBC 3.93 L Hgb 12.2 L Hct 36.7 L MCV 93.4 MCH 31.0 MCHC 33.2 RDW 13.4 RDW Differential 45.9 H Plt Count 109 L MPV 9.0 Immature Gran % (Auto) 0.200 Neut % (Auto) 90.7 H Lymph % (Auto) 3.6 L [place] % (Auto) 3.6 Eos % (Auto) 1.7 Baso % (Auto) 0.2 Absolute Neuts (auto) 5.7 Absolute Lymphs (auto) 0.23 L Total Counted Not Reportable Differential Comment SCANNED Sodium 140 Potassium 4.2 Chloride 109 H Carbon Dioxide 26.0 Anion Gap 5 BUN 14 Creatinine 1.35 H Estim Creat Clear Calc 62.27 Est GFR (MDRD) Af Amer 69 Est GFR (MDRD) Non-Af 57 L BUN/Creatinine Ratio 10.4 Glucose 121 H Calcium 8.9 - Other Studies Radiology: [] reviewed Other Studies: [] Route of nutrition/ use of supplements: [] Nutritional Intake: [] IV Site: [] Craft Catheter: [] - Physical Exam General: Alert, Oriented x3, Cooperative HEENT: Atraumatic, PERRLA, EOMI Neck: Supple, No Nodes Lungs: Clear to auscultation, Normal air movement Cardiovascular: Regular rate, Regular Rhythm Abdomen: Bowel Sounds Present, Soft, Non Tender, Non-Distended Extremities: Edema - RLE edema Skin: Rash Present - mild RLE erythema IV Site: Peripheral, without redness Musculoskeletal: No Tenderness to Palpation of Joints or Extremities Neurological: Cranial nerves II-XII grossly intact - Assessment/Plan Antibiotics: [] Assessment/Plan: [] Active and Suspected Problems (Last Reviewed 01/08/18 @ 14:35 by Divina Ahumada) Cellulitis of right lower extremity (Acute) Mild. Improving. Normal wbc, no fever. Cont iv cefazolin. Has been getting suppressive Bicillin injections as an outpatient from his PCP. Thank you, will follow. D/w Dr. Butler.
[2018-04-02 14:52] VITALS: BP 117/54; PULSE 95; RESP 18; TEMP 36.9; O2SAT 97
[2018-04-02] MEDS: Acetaminophen 325 MG Tablet 650 MG PO ×2 (16:12→22:47)
[2018-04-02 22:00] VITALS: BP 127/75; PULSE 78; RESP 18; TEMP 36.9; O2SAT 100
[2018-04-02] MEDS: Aspirin 81 MG TAB.CHEW PO (22:13)
[2018-04-02] MEDS: Gabapentin 600 MG Tablet PO (22:13)
[2018-04-02] MEDS: Atorvastatin Calcium 40 MG Tablet PO (22:13)
[2018-04-02] MEDS: 0.9% NaCl Peripheral Flush Adult/Peds IV (22:34)
[2018-04-02] MEDS: Temazepam 15 MG Capsule 30 MG PO (22:34)
[2018-04-02 22:45] LABS: Bedside Glucose 116 mg/dL (70-110)
[2018-04-03 04:00] VITALS: BP 94/40; PULSE 73; RESP 18; TEMP 37; O2SAT 97
[2018-04-03 04:08] VITALS: PULSE 73
[2018-04-03] MEDS: Cefazolin 2 GM in 0.9% Normal Saline 100 ML IV ×3 (05:49→22:28)
[2018-04-03 06:51] LABS: Bedside Glucose 147 mg/dL (70-110)
[2018-04-03] MEDS: Heparin Injection (Vial) 5,000 UNIT/ML VIAL 5000 UNIT SC ×2 (08:22→22:28)
[2018-04-03] MEDS: Loratadine 10 MG Tablet PO (08:22)
[2018-04-03] MEDS: Isosorbide Mononitrate 60 MG Tablet PO ×2 (08:23→22:27)
[2018-04-03] MEDS: Polyethylene Glycol 3350 17 GM PACKET PO (08:23)
[2018-04-03] MEDS: Pantoprazole Sodium 40 MG Tablet PO (08:23)
[2018-04-03] MEDS: Furosemide 80 MG Tablet PO (08:23)
[2018-04-03] MEDS: buPROPion (SR) 150 MG Tablet.SA PO ×2 (08:23→22:28)
[2018-04-03] MEDS: Ranolazine 500 MG Tablet 1000 MG PO ×2 (08:24→22:27)
[2018-04-03] MEDS: Carvedilol 25 MG Tablet PO ×2 (08:24→22:28)
[2018-04-03] MEDS: Ramipril 2.5 MG Capsule PO (08:25)
[2018-04-03] MEDS: Escitalopram Oxalate 20 MG Tablet PO (08:25)
[2018-04-03] MEDS: Clopidogrel Bisulfate 75 MG Tablet PO (08:26)
[2018-04-03] MEDS: Montelukast 10 MG Tablet PO (08:26)
--- NOTE | 2018-04-03 09:37 | PCM.PN.HOSP ---
Patient Problems: Active and Suspected Problems (Last Reviewed 01/08/18 @ 14:35 by Divina Ahumada) Cellulitis of right lower extremity (Acute) Subjective: Leg feeling better. Notes that it is more red when he stands on it. Vitals/I&O's: Vital Signs Temp Pulse Resp BP Pulse Ox 37.0 C 73 18 94/40 L 97 04/03/18 04:00 04/03/18 04:08 04/03/18 04:00 04/03/18 04:00 04/03/18 04:00 Oxygen Delivery Method Room Air Weight: 149.7 kg Body Mass Index (BMI) 44.7 Intake and Output for Last 24 Hours 04/01/18 04/02/18 04/03/18 23:59 23:59 23:59 Intake Total 1659 / 1659 951 / 951 Output Total 400 / 400 Balance 1259 / 1259 951 / 951 General: Alert, Cooperative, No apparent distress HEENT: Atraumatic, Normocephalic Extremities: Edema - RLE Skin: - - decreased erythema of RLE. Lichenification of RLE. Lymphedema RLE Musculoskeletal: No Tenderness to Palpation of Joints or Extremities, No Muscle Wasting Neurological: Neuro grossly intact, Sensory exam intact to light touch and pain Psych/Mental Status: Normal Affect, Appropriate Laboratory Results 04/02/18 22:38: POC Glucose 116 H 04/03/18 06:47: POC Glucose 147 H Current Medications Acetaminophen (Tylenol) 650 mg PO Q6H PRN PRN PRN Reason: Mild Pain (scale 0-3)/T>100.7 Last Admin: 04/02/18 22:47 Dose: 650 mg Aspirin (Aspirin, Baby) 81 mg PO QHS [facility] Last Admin: 04/02/18 22:13 Dose: 81 mg Atorvastatin Calcium (Lipitor) 40 mg PO QHS [facility] Last Admin: 04/02/18 22:13 Dose: 40 mg Bupropion HCl (Wellbutrin Sr (150mg Tablets)) 150 mg PO BID [facility] Last Admin: 04/03/18 08:23 Dose: 150 mg Carvedilol (Coreg) 25 mg PO BID [facility] Last Admin: 04/03/18 08:24 Dose: 25 mg Clopidogrel Bisulfate (Plavix) 75 mg PO DAILY [facility] Last Admin: 04/03/18 08:26 Dose: 75 mg Dextrose (D50w Syringe) 0 gm IV X1 PRN; Protocol PRN Reason: Hypoglycemia Docusate Sodium (Colace) 200 mg PO BID PRN PRN PRN Reason: Constipation Emollient Ointment (Eucerin Intensive Repair) 1 applic TOPICAL DAILY MARYANNE PRN Reason: Protocol Last Admin: 04/03/18 08:16 Dose: 1 applicatio Escitalopram Oxalate (Lexapro) 20 mg PO DAILY [facility] Last Admin: 04/03/18 08:25 Dose: 20 mg Furosemide (Lasix) 40 mg PO DINNER [facility] Furosemide (Lasix) 80 mg PO BREAKFAST [facility] Last Admin: 04/03/18 08:23 Dose: 80 mg Gabapentin (Neurontin) 600 mg PO QHS [facility] Last Admin: 04/02/18 22:13 Dose: 600 mg Glucagon () 1 mg IM .X1 PRN PRN Reason: Hypoglycemia Heparin Sodium (Porcine) (Heparin Na) 5,000 unit SC BID [facility] Last Admin: 04/03/18 08:22 Dose: 5,000 units Cefazolin Sodium 2 gm/ Sodium (Chloride) 110 mls @ 150 mls/hr IV Q8 [facility] Last Admin: 04/03/18 05:49 Dose: 150 mls/hr Isosorbide Mononitrate (Imdur) 60 mg PO BID [facility] Last Admin: 04/03/18 08:23 Dose: 60 mg Loratadine (Claritin) 10 mg PO DAILY [facility] Last Admin: 04/03/18 08:22 Dose: 10 mg Montelukast Sodium (Singulair) 10 mg PO DAILY [facility] Last Admin: 04/03/18 08:26 Dose: 10 mg Niacin (Niaspan) 1,000 mg PO QHS [facility] Last Admin: 04/02/18 22:13 Dose: 1,000 mg Nitroglycerin (Nitrostat) 0.4 mg SUBLINGUAL Q5M PRN PRN Reason: chest pain Ondansetron HCl (Zofran) 4 mg IV Q6H PRN PRN PRN Reason: Nausea Oxycodone HCl (Oxyir) 5 mg PO Q4H PRN PRN PRN Reason: Moderate Pain (pain scale 4-5) Pantoprazole Sodium (Protonix) 40 mg PO DAILY [facility] Last Admin: 04/03/18 08:23 Dose: 40 mg Polyethylene Glycol (Miralax) 17 gm PO DAILY [facility] Last Admin: 04/03/18 08:23 Dose: 17 gm Potassium Chloride (K-Dur) 40 meq PO DAILY [facility] Last Admin: 04/03/18 08:24 Dose: 40 meq Ramipril (Altace) 2.5 mg PO DAILY [facility] Last Admin: 04/03/18 08:25 Dose: 2.5 mg Ranolazine (Ranexa) 1,000 mg PO BID [facility] Last Admin: 04/03/18 08:24 Dose: 1,000 mg Sodium Chloride () 5 - 30 ml IV UD PRN PRN Reason: SALINE FLUSH Last Admin: 04/02/18 22:34 Dose: 20 ml Temazepam (Restoril) 30 mg PO QHS [facility] Last Admin: 04/02/18 22:34 Dose: 30 mg Medical Necessity - Tobacco Use Smoking Status: Former smoker Assessment/Plan Active and Suspected Problems (Last Reviewed 01/08/18 @ 14:35 by Divina Ahumada) Cellulitis of right lower extremity (Acute) 1. RLE cellulitis suspect strep given bright erythema on Cefazolin pt very concerned about going on oral antibiotics. I informed him that would likely be the plan, but not at this time. He said he wouldn't do it without a fight. I told him that we will continue to assess him and make appropriate decisions, but keep him informed in the process. 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 CKD 3 stable avoid nephrotoxic agents. 3. CAD: stable s/p CABG x2- PARK to LAD, SARIAH to OM 06/01/05; PTCA/stent to prox LAD 02/02/05; PTCA/stent instent restenosis of prox LAD 10/15/13 DAPT, HIS follow up with Dr. Mtz as outpt in July for 6 month follow up (last seen in January) 4. HFrEF EF 35% Dec 17 s/p AICD continue lasix, coreg, imdur, imdur compensated 5. DVT proph: SQ heparin no SCDs given lymphedema Code Visit Inpatient E&M: 49125 Subs Hosp L2
--- NOTE | 2018-04-03 09:40 | PN_ITS ---
Patient Problems: Active and Suspected Problems (Last Reviewed 01/08/18 @ 14:35 by Divina Ahumada) Cellulitis of right lower extremity (Acute) Subjective: Leg feeling better. Notes that it is more red when he stands on it. Vitals/I&O's: Vital Signs Temp Pulse Resp BP Pulse Ox 37.0 C 73 18 94/40 L 97 04/03/18 04:00 04/03/18 04:08 04/03/18 04:00 04/03/18 04:00 04/03/18 04:00 Oxygen Delivery Method Room Air Weight: 149.7 kg Body Mass Index (BMI) 44.7 Intake and Output for Last 24 Hours 04/01/18 04/02/18 04/03/18 23:59 23:59 23:59 Intake Total 1659 / 1659 951 / 951 Output Total 400 / 400 Balance 1259 / 1259 951 / 951 General: Alert, Cooperative, No apparent distress HEENT: Atraumatic, Normocephalic Extremities: Edema - RLE Skin: - - decreased erythema of RLE. Lichenification of RLE. Lymphedema RLE Musculoskeletal: No Tenderness to Palpation of Joints or Extremities, No Muscle Wasting Neurological: Neuro grossly intact, Sensory exam intact to light touch and pain Psych/Mental Status: Normal Affect, Appropriate Laboratory Results 04/02/18 22:38: POC Glucose 116 H 04/03/18 06:47: POC Glucose 147 H Current Medications Acetaminophen (Tylenol) 650 mg PO Q6H PRN PRN PRN Reason: Mild Pain (scale 0-3)/T>100.7 Last Admin: 04/02/18 22:47 Dose: 650 mg Aspirin (Aspirin, Baby) 81 mg PO QHS [facility] Last Admin: 04/02/18 22:13 Dose: 81 mg Atorvastatin Calcium (Lipitor) 40 mg PO QHS [facility] Last Admin: 04/02/18 22:13 Dose: 40 mg Bupropion HCl (Wellbutrin Sr (150mg Tablets)) 150 mg PO BID [facility] Last Admin: 04/03/18 08:23 Dose: 150 mg Carvedilol (Coreg) 25 mg PO BID [facility] Last Admin: 04/03/18 08:24 Dose: 25 mg Clopidogrel Bisulfate (Plavix) 75 mg PO DAILY [facility] Last Admin: 04/03/18 08:26 Dose: 75 mg Dextrose (D50w Syringe) 0 gm IV X1 PRN; Protocol PRN Reason: Hypoglycemia Docusate Sodium (Colace) 200 mg PO BID PRN PRN PRN Reason: Constipation Emollient Ointment (Eucerin Intensive Repair) 1 applic TOPICAL DAILY MARYANNE PRN Reason: Protocol Last Admin: 04/03/18 08:16 Dose: 1 applicatio Escitalopram Oxalate (Lexapro) 20 mg PO DAILY [facility] Last Admin: 04/03/18 08:25 Dose: 20 mg Furosemide (Lasix) 40 mg PO DINNER [facility] Furosemide (Lasix) 80 mg PO BREAKFAST [facility] Last Admin: 04/03/18 08:23 Dose: 80 mg Gabapentin (Neurontin) 600 mg PO QHS [facility] Last Admin: 04/02/18 22:13 Dose: 600 mg Glucagon () 1 mg IM .X1 PRN PRN Reason: Hypoglycemia Heparin Sodium (Porcine) (Heparin Na) 5,000 unit SC BID [facility] Last Admin: 04/03/18 08:22 Dose: 5,000 units Cefazolin Sodium 2 gm/ Sodium (Chloride) 110 mls @ 150 mls/hr IV Q8 [facility] Last Admin: 04/03/18 05:49 Dose: 150 mls/hr Isosorbide Mononitrate (Imdur) 60 mg PO BID [facility] Last Admin: 04/03/18 08:23 Dose: 60 mg Loratadine (Claritin) 10 mg PO DAILY [facility] Last Admin: 04/03/18 08:22 Dose: 10 mg Montelukast Sodium (Singulair) 10 mg PO DAILY [facility] Last Admin: 04/03/18 08:26 Dose: 10 mg Niacin (Niaspan) 1,000 mg PO QHS [facility] Last Admin: 04/02/18 22:13 Dose: 1,000 mg Nitroglycerin (Nitrostat) 0.4 mg SUBLINGUAL Q5M PRN PRN Reason: chest pain Ondansetron HCl (Zofran) 4 mg IV Q6H PRN PRN PRN Reason: Nausea Oxycodone HCl (Oxyir) 5 mg PO Q4H PRN PRN PRN Reason: Moderate Pain (pain scale 4-5) Pantoprazole Sodium (Protonix) 40 mg PO DAILY [facility] Last Admin: 04/03/18 08:23 Dose: 40 mg Polyethylene Glycol (Miralax) 17 gm PO DAILY [facility] Last Admin: 04/03/18 08:23 Dose: 17 gm Potassium Chloride (K-Dur) 40 meq PO DAILY [facility] Last Admin: 04/03/18 08:24 Dose: 40 meq Ramipril (Altace) 2.5 mg PO DAILY [facility] Last Admin: 04/03/18 08:25 Dose: 2.5 mg Ranolazine (Ranexa) 1,000 mg PO BID [facility] Last Admin: 04/03/18 08:24 Dose: 1,000 mg Sodium Chloride () 5 - 30 ml IV UD PRN PRN Reason: SALINE FLUSH Last Admin: 04/02/18 22:34 Dose: 20 ml Temazepam (Restoril) 30 mg PO QHS [facility] Last Admin: 04/02/18 22:34 Dose: 30 mg Medical Necessity - Tobacco Use Smoking Status: Former smoker Assessment/Plan Active and Suspected Problems (Last Reviewed 01/08/18 @ 14:35 by Divina Ahumada) Cellulitis of right lower extremity (Acute) 1. RLE cellulitis * suspect strep given bright erythema * on Cefazolin * pt very concerned about going on oral antibiotics. I informed him that would likely be the plan, but not at this time. He said he wouldn't do it without a fight. I told him that we will continue to assess him and make appropriate decisions, but keep him informed in the process. 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 CKD 3 * stable * avoid nephrotoxic agents. 3. CAD: * stable * s/p CABG x2- PARK to LAD, SARIAH to OM 06/01/05; PTCA/stent to prox LAD 02/02/05 ; PTCA/stent instent restenosis of prox LAD 10/15/13 * DAPT, HIS * follow up with Dr. Mtz as outpt in July for 6 month follow up (last seen in January) 4. HFrEF * EF 35% Dec 17 * s/p AICD * continue lasix, coreg, imdur, imdur * compensated 5. DVT proph: SQ heparin * no SCDs given lymphedema Code Visit Inpatient E&M: 43842 Subs Hosp L2
[2018-04-03 10:00] VITALS: BP 117/66; PULSE 69; RESP 18; TEMP 36.7; O2SAT 99
--- NOTE | 2018-04-03 10:20 | PCM.PN.ID ---
Patient Problems: Active and Suspected Problems (Last Reviewed 01/08/18 @ 14:35 by Divina Ahumada) Cellulitis of right lower extremity (Acute) Subjective: Feeling better, leg less red and sore, no fever - Physical Exam General: Alert, Cooperative Lungs: Clear to auscultation, Normal air movement Cardiovascular: Regular rate, Regular Rhythm Abdomen: Soft, Non Tender, Non-Distended Skin: Rash Present - RLE less red Vital Signs Temp Pulse Resp BP Pulse Ox 98.6 F 73 18 94/40 L 97 04/03/18 04:00 04/03/18 04:08 04/03/18 04:00 04/03/18 04:00 04/03/18 04:00 Oxygen Delivery Method Room Air Weight: 149.7 kg Body Mass Index (BMI) 44.7 Intake and Output for Last 24 Hours 04/01/18 04/02/18 04/03/18 23:59 23:59 23:59 Intake Total 1659 / 1659 951 / 951 Output Total 400 / 400 Balance 1259 / 1259 951 / 951 POC Glucose 04/03/18 04/02/18 06:47 22:38 POC Glucose 147 H 116 H Medical Necessity - Tobacco Use Smoking Status: Former smoker Route of nutrition/ use of supplements: [] Nutritional Intake: [] IV Site: [] Craft Catheter: [] - Assessment/Plan Antibiotics: [] Assessment/Plan: [] Active and Suspected Problems (Last Reviewed 01/08/18 @ 14:35 by Divina Ahumada) Cellulitis of right lower extremity (Acute) Mild. Improving. Normal wbc, no fever. Cont iv cefazolin. Has been getting suppressive Bicillin injections as an outpatient from his PCP. Plan on home on po abx tomorrow if his leg continues to improve will follow. D/w Dr. Butler.
--- NOTE | 2018-04-03 10:56 | NURSING ---
the right leg redness is slightly improved today. still some warmth noted. no open areas. will continue to monitor as needed.
[2018-04-03 11:55] LABS: Bedside Glucose 123 mg/dL (70-110)
[2018-04-03] MEDS: 0.9% NaCl Peripheral Flush Adult/Peds IV (13:38)
[2018-04-03 16:00] VITALS: BP 107/61; PULSE 63; RESP 18; TEMP 36.9; O2SAT 63
[2018-04-03] MEDS: Furosemide 40 MG Tablet PO (16:58)
[2018-04-03 17:01] LABS: Bedside Glucose 98 mg/dL (70-110)
[2018-04-03 20:21] VITALS: BP 140/79; PULSE 70; RESP 18; TEMP 36.6; O2SAT 97
[2018-04-03] MEDS: Aspirin 81 MG TAB.CHEW PO (22:27)
[2018-04-03] MEDS: Atorvastatin Calcium 40 MG Tablet PO (22:27)
[2018-04-03] MEDS: Gabapentin 600 MG Tablet PO (22:28)
[2018-04-03 22:50] LABS: Bedside Glucose 132 mg/dL (70-110)
[2018-04-03] MEDS: Temazepam 15 MG Capsule 30 MG PO (23:17)
[2018-04-04 02:52] VITALS: BP 114/63; PULSE 66; RESP 18; TEMP 36.4; O2SAT 97
[2018-04-04] MEDS: Cefazolin 2 GM in 0.9% Normal Saline 100 ML IV (05:33)
[2018-04-04 06:55] LABS: Bedside Glucose 102 mg/dL (70-110)
[2018-04-04 08:15] VITALS: PULSE 64
[2018-04-04 08:17] VITALS: BP 117/76; PULSE 62; RESP 18; TEMP 36.4; O2SAT 97
[2018-04-04] MEDS: Furosemide 80 MG Tablet PO (08:21)
--- NOTE | 2018-04-04 08:38 | PCM.PN.HOSP ---
Patient Problems: Active and Suspected Problems (Last Reviewed 01/08/18 @ 14:35 by Divina Ahumada) Cellulitis of right lower extremity (Acute) Subjective: had an infiltration of an IV in RUE. Had several attempts, but finally got an IV in LUE. Vitals/I&O's: Vital Signs Temp Pulse Resp BP Pulse Ox 36.4 C L 62 18 117/76 97 04/04/18 08:17 04/04/18 08:17 04/04/18 08:17 04/04/18 08:17 04/04/18 08:17 Oxygen Delivery Method Room Air Weight: 149.7 kg Body Mass Index (BMI) 44.7 Intake and Output for Last 24 Hours 04/02/18 04/03/18 04/04/18 23:59 23:59 23:59 Intake Total 1659 / 1659 951 / 951 771 / 771 Output Total 400 / 400 Balance 1259 / 1259 951 / 951 771 / 771 General: Alert, No apparent distress HEENT: Atraumatic, Normocephalic Extremities: Edema Skin: - - Lymphedema RLE with lichenifacation. Decreased erythema of RLE Psych/Mental Status: Normal Affect, Appropriate Laboratory Results 04/03/18 11:35: POC Glucose 123 H 04/03/18 16:54: POC Glucose 98 04/03/18 22:43: POC Glucose 132 H 04/04/18 06:50: POC Glucose 102 Current Medications Acetaminophen (Tylenol) 650 mg PO Q6H PRN PRN PRN Reason: Mild Pain (scale 0-3)/T>100.7 Last Admin: 04/02/18 22:47 Dose: 650 mg Aspirin (Aspirin, Baby) 81 mg PO QHS [facility] Last Admin: 04/03/18 22:27 Dose: 81 mg Atorvastatin Calcium (Lipitor) 40 mg PO QHS [facility] Last Admin: 04/03/18 22:27 Dose: 40 mg Bupropion HCl (Wellbutrin Sr (150mg Tablets)) 150 mg PO BID [facility] Last Admin: 04/03/18 22:28 Dose: 150 mg Carvedilol (Coreg) 25 mg PO BID [facility] Last Admin: 04/03/18 22:28 Dose: 25 mg Clopidogrel Bisulfate (Plavix) 75 mg PO DAILY [facility] Last Admin: 04/03/18 08:26 Dose: 75 mg Dextrose (D50w Syringe) 0 gm IV X1 PRN; Protocol PRN Reason: Hypoglycemia Docusate Sodium (Colace) 200 mg PO BID PRN PRN PRN Reason: Constipation Emollient Ointment (Eucerin Intensive Repair) 1 applic TOPICAL DAILY MARYANNE PRN Reason: Protocol Last Admin: 04/03/18 08:16 Dose: 1 applicatio Escitalopram Oxalate (Lexapro) 20 mg PO DAILY [facility] Last Admin: 04/03/18 08:25 Dose: 20 mg Furosemide (Lasix) 40 mg PO DINNER [facility] Last Admin: 04/03/18 16:58 Dose: 40 mg Furosemide (Lasix) 80 mg PO BREAKFAST [facility] Last Admin: 04/04/18 08:21 Dose: 80 mg Gabapentin (Neurontin) 600 mg PO QHS [facility] Last Admin: 04/03/18 22:28 Dose: 600 mg Glucagon () 1 mg IM .X1 PRN PRN Reason: Hypoglycemia Heparin Sodium (Porcine) (Heparin Na) 5,000 unit SC BID [facility] Last Admin: 04/03/18 22:28 Dose: 5,000 units Cefazolin Sodium 2 gm/ Sodium (Chloride) 110 mls @ 150 mls/hr IV Q8 [facility] Last Admin: 04/04/18 05:33 Dose: 150 mls/hr Isosorbide Mononitrate (Imdur) 60 mg PO BID [facility] Last Admin: 04/03/18 22:27 Dose: 60 mg Loratadine (Claritin) 10 mg PO DAILY [facility] Last Admin: 04/03/18 08:22 Dose: 10 mg Montelukast Sodium (Singulair) 10 mg PO DAILY [facility] Last Admin: 04/03/18 08:26 Dose: 10 mg Niacin (Niaspan) 1,000 mg PO QHS [facility] Last Admin: 04/03/18 22:27 Dose: 1,000 mg Nitroglycerin (Nitrostat) 0.4 mg SUBLINGUAL Q5M PRN PRN Reason: chest pain Ondansetron HCl (Zofran) 4 mg IV Q6H PRN PRN PRN Reason: Nausea Oxycodone HCl (Oxyir) 5 mg PO Q4H PRN PRN PRN Reason: Moderate Pain (pain scale 4-5) Pantoprazole Sodium (Protonix) 40 mg PO DAILY [facility] Last Admin: 04/03/18 08:23 Dose: 40 mg Polyethylene Glycol (Miralax) 17 gm PO DAILY [facility] Last Admin: 04/03/18 08:23 Dose: 17 gm Potassium Chloride (K-Dur) 40 meq PO DAILY [facility] Last Admin: 04/03/18 08:24 Dose: 40 meq Ramipril (Altace) 2.5 mg PO DAILY [facility] Last Admin: 04/03/18 08:25 Dose: 2.5 mg Ranolazine (Ranexa) 1,000 mg PO BID [facility] Last Admin: 04/03/18 22:27 Dose: 1,000 mg Sodium Chloride () 5 - 30 ml IV UD PRN PRN Reason: SALINE FLUSH Last Admin: 04/03/18 13:38 Dose: 10 ml Temazepam (Restoril) 30 mg PO QHS [facility] Last Admin: 04/03/18 23:17 Dose: 30 mg Medical Necessity - Tobacco Use Smoking Status: Former smoker Assessment/Plan Active and Suspected Problems (Last Reviewed 01/08/18 @ 14:35 by Divina Ahumada) Cellulitis of right lower extremity (Acute) 1. RLE cellulitis suspect strep given bright erythema on Cefazolin pt very concerned about going on oral antibiotics. I informed him that would likely be the plan, but not at this time. He said he wouldn't do it without a fight. I told him that we will continue to assess him and make appropriate decisions, but keep him informed in the process. 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 Await ID to see and make further recommendations. 2. CKD 3 stable avoid nephrotoxic agents. 3. CAD: stable s/p CABG x2- PARK to LAD, SARIAH to OM 06/01/05; PTCA/stent to prox LAD 02/02/05; PTCA/stent instent restenosis of prox LAD 10/15/13 DAPT, HIS follow up with Dr. Mtz as outpt in July for 6 month follow up (last seen in January) 4. HFrEF EF 35% Dec 17 s/p AICD continue lasix, coreg, imdur, imdur compensated 5. DVT proph: SQ heparin no SCDs given lymphedema Code Visit Inpatient E&M: 66056 Subs Hosp L1
--- NOTE | 2018-04-04 08:40 | PN_ITS ---
Patient Problems: Active and Suspected Problems (Last Reviewed 01/08/18 @ 14:35 by Divina Ahumada) Cellulitis of right lower extremity (Acute) Subjective: had an infiltration of an IV in RUE. Had several attempts, but finally got an IV in LUE. Vitals/I&O's: Vital Signs Temp Pulse Resp BP Pulse Ox 36.4 C L 62 18 117/76 97 04/04/18 08:17 04/04/18 08:17 04/04/18 08:17 04/04/18 08:17 04/04/18 08:17 Oxygen Delivery Method Room Air Weight: 149.7 kg Body Mass Index (BMI) 44.7 Intake and Output for Last 24 Hours 04/02/18 04/03/18 04/04/18 23:59 23:59 23:59 Intake Total 1659 / 1659 951 / 951 771 / 771 Output Total 400 / 400 Balance 1259 / 1259 951 / 951 771 / 771 General: Alert, No apparent distress HEENT: Atraumatic, Normocephalic Extremities: Edema Skin: - - Lymphedema RLE with lichenifacation. Decreased erythema of RLE Psych/Mental Status: Normal Affect, Appropriate Laboratory Results 04/03/18 11:35: POC Glucose 123 H 04/03/18 16:54: POC Glucose 98 04/03/18 22:43: POC Glucose 132 H 04/04/18 06:50: POC Glucose 102 Current Medications Acetaminophen (Tylenol) 650 mg PO Q6H PRN PRN PRN Reason: Mild Pain (scale 0-3)/T>100.7 Last Admin: 04/02/18 22:47 Dose: 650 mg Aspirin (Aspirin, Baby) 81 mg PO QHS [facility] Last Admin: 04/03/18 22:27 Dose: 81 mg Atorvastatin Calcium (Lipitor) 40 mg PO QHS [facility] Last Admin: 04/03/18 22:27 Dose: 40 mg Bupropion HCl (Wellbutrin Sr (150mg Tablets)) 150 mg PO BID [facility] Last Admin: 04/03/18 22:28 Dose: 150 mg Carvedilol (Coreg) 25 mg PO BID [facility] Last Admin: 04/03/18 22:28 Dose: 25 mg Clopidogrel Bisulfate (Plavix) 75 mg PO DAILY [facility] Last Admin: 04/03/18 08:26 Dose: 75 mg Dextrose (D50w Syringe) 0 gm IV X1 PRN; Protocol PRN Reason: Hypoglycemia Docusate Sodium (Colace) 200 mg PO BID PRN PRN PRN Reason: Constipation Emollient Ointment (Eucerin Intensive Repair) 1 applic TOPICAL DAILY MARYANNE PRN Reason: Protocol Last Admin: 04/03/18 08:16 Dose: 1 applicatio Escitalopram Oxalate (Lexapro) 20 mg PO DAILY [facility] Last Admin: 04/03/18 08:25 Dose: 20 mg Furosemide (Lasix) 40 mg PO DINNER [facility] Last Admin: 04/03/18 16:58 Dose: 40 mg Furosemide (Lasix) 80 mg PO BREAKFAST [facility] Last Admin: 04/04/18 08:21 Dose: 80 mg Gabapentin (Neurontin) 600 mg PO QHS [facility] Last Admin: 04/03/18 22:28 Dose: 600 mg Glucagon () 1 mg IM .X1 PRN PRN Reason: Hypoglycemia Heparin Sodium (Porcine) (Heparin Na) 5,000 unit SC BID [facility] Last Admin: 04/03/18 22:28 Dose: 5,000 units Cefazolin Sodium 2 gm/ Sodium (Chloride) 110 mls @ 150 mls/hr IV Q8 [facility] Last Admin: 04/04/18 05:33 Dose: 150 mls/hr Isosorbide Mononitrate (Imdur) 60 mg PO BID [facility] Last Admin: 04/03/18 22:27 Dose: 60 mg Loratadine (Claritin) 10 mg PO DAILY [facility] Last Admin: 04/03/18 08:22 Dose: 10 mg Montelukast Sodium (Singulair) 10 mg PO DAILY [facility] Last Admin: 04/03/18 08:26 Dose: 10 mg Niacin (Niaspan) 1,000 mg PO QHS [facility] Last Admin: 04/03/18 22:27 Dose: 1,000 mg Nitroglycerin (Nitrostat) 0.4 mg SUBLINGUAL Q5M PRN PRN Reason: chest pain Ondansetron HCl (Zofran) 4 mg IV Q6H PRN PRN PRN Reason: Nausea Oxycodone HCl (Oxyir) 5 mg PO Q4H PRN PRN PRN Reason: Moderate Pain (pain scale 4-5) Pantoprazole Sodium (Protonix) 40 mg PO DAILY [facility] Last Admin: 04/03/18 08:23 Dose: 40 mg Polyethylene Glycol (Miralax) 17 gm PO DAILY [facility] Last Admin: 04/03/18 08:23 Dose: 17 gm Potassium Chloride (K-Dur) 40 meq PO DAILY [facility] Last Admin: 04/03/18 08:24 Dose: 40 meq Ramipril (Altace) 2.5 mg PO DAILY [facility] Last Admin: 04/03/18 08:25 Dose: 2.5 mg Ranolazine (Ranexa) 1,000 mg PO BID [facility] Last Admin: 04/03/18 22:27 Dose: 1,000 mg Sodium Chloride () 5 - 30 ml IV UD PRN PRN Reason: SALINE FLUSH Last Admin: 04/03/18 13:38 Dose: 10 ml Temazepam (Restoril) 30 mg PO QHS [facility] Last Admin: 04/03/18 23:17 Dose: 30 mg Medical Necessity - Tobacco Use Smoking Status: Former smoker Assessment/Plan Active and Suspected Problems (Last Reviewed 01/08/18 @ 14:35 by Divina Ahumada) Cellulitis of right lower extremity (Acute) 1. RLE cellulitis * suspect strep given bright erythema * on Cefazolin * pt very concerned about going on oral antibiotics. I informed him that would likely be the plan, but not at this time. He said he wouldn't do it without a fight. I told him that we will continue to assess him and make appropriate decisions, but keep him informed in the process. 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 Await ID to see and make further recommendations. 2. CKD 3 * stable * avoid nephrotoxic agents. 3. CAD: * stable * s/p CABG x2- PARK to LAD, SARIAH to OM 06/01/05; PTCA/stent to prox LAD 02/02/05 ; PTCA/stent instent restenosis of prox LAD 10/15/13 * DAPT, HIS * follow up with Dr. Mtz as outpt in July for 6 month follow up (last seen in January) 4. HFrEF * EF 35% Dec 17 * s/p AICD * continue lasix, coreg, imdur, imdur * compensated 5. DVT proph: SQ heparin * no SCDs given lymphedema Code Visit Inpatient E&M: 88951 Subs Hosp L1
--- NOTE | 2018-04-04 10:07 | PCM.PN.ID ---
Patient Problems: Active and Suspected Problems (Last Reviewed 01/08/18 @ 14:35 by Divina Ahumada) Cellulitis of right lower extremity (Acute) Subjective: Feeling better, leg less sore, no fever - Physical Exam General: Alert, Cooperative Lungs: Clear to auscultation, Normal air movement Cardiovascular: Regular rate, Regular Rhythm Abdomen: Soft, Non Tender, Non-Distended Extremities: Edema Skin: Rash Present - nearly resolved RLE redness Vital Signs Temp Pulse Resp BP Pulse Ox 97.6 F L 62 18 117/76 97 04/04/18 08:17 04/04/18 08:17 04/04/18 08:17 04/04/18 08:17 04/04/18 08:17 Oxygen Delivery Method Room Air Weight: 149.7 kg Body Mass Index (BMI) 44.7 Intake and Output for Last 24 Hours 04/02/18 04/03/18 04/04/18 23:59 23:59 23:59 Intake Total 1659 / 1659 951 / 951 771 / 771 Output Total 400 / 400 Balance 1259 / 1259 951 / 951 771 / 771 POC Glucose 04/04/18 04/03/18 04/03/18 06:50 22:43 16:54 POC Glucose 102 132 H 98 04/03/18 11:35 POC Glucose 123 H Medical Necessity - Tobacco Use Smoking Status: Former smoker Route of nutrition/ use of supplements: [] Nutritional Intake: [] IV Site: [] Craft Catheter: [] - Assessment/Plan Antibiotics: [] Assessment/Plan: [] Active and Suspected Problems (Last Reviewed 01/08/18 @ 14:35 by Divina Ahumada) Cellulitis of right lower extremity (Acute) Mild. Improving. Normal wbc, no fever. On iv cefazolin. Has been getting suppressive Bicillin injections as an outpatient from his PCP. Cellulitis nearly resolved. Ok for d/c home on po keflex 500mg tid for one more week. will follow. D/w Dr. Butler.
[2018-04-04] MEDS: Ranolazine 500 MG Tablet 1000 MG PO (10:19)
[2018-04-04] MEDS: Montelukast 10 MG Tablet PO (10:19)
[2018-04-04] MEDS: Escitalopram Oxalate 20 MG Tablet PO (10:19)
[2018-04-04] MEDS: Pantoprazole Sodium 40 MG Tablet PO (10:19)
[2018-04-04] MEDS: Isosorbide Mononitrate 60 MG Tablet PO (10:19)
[2018-04-04] MEDS: Polyethylene Glycol 3350 17 GM PACKET PO (10:19)
[2018-04-04] MEDS: buPROPion (SR) 150 MG Tablet.SA PO (10:19)
[2018-04-04] MEDS: Clopidogrel Bisulfate 75 MG Tablet PO (10:19)
[2018-04-04] MEDS: Loratadine 10 MG Tablet PO (10:20)
[2018-04-04] MEDS: Ramipril 2.5 MG Capsule PO (10:20)
[2018-04-04] MEDS: Carvedilol 25 MG Tablet PO (10:20)
[2018-04-04] MEDS: Heparin Injection (Vial) 5,000 UNIT/ML VIAL 5000 UNIT SC (10:21)
--- NOTE | 2018-04-04 10:52 | PCM.DC ---
- Discharge Diagnoses Current Active Problems: Current Active and Chronic Problems (Last Reviewed 01/08/18 @ 14:35 by Divina Ahumada) Lymphedema of right lower extremity (Chronic) Cellulitis of right lower extremity (Acute) You will use the following diet at home:: Cardiac Your food should be the consistency of: Regular Your liquids should be the consistency of: Regular/Thin Discharge Activity: Return to Normal Activity Call your doctor if you observe: Fever of 101 or Higher, - - worsening swelling and erythema of right leg. Allergies/Adverse Reactions: Allergies No Known Allergies Allergy (Verified 04/01/18 19:17) Medications to take at Discharge Atorvastatin Calcium [Lipitor] 40 mg PO DINNER 10/05/13 Montelukast [Singulair] 10 mg PO DAILY 10/05/13 Niacin SA [Niaspan] 1,000 mg PO QHS 10/05/13 Escitalopram Oxalate [Lexapro] 20 mg PO DAILY 11/02/14 Furosemide [Lasix] 40 mg PO DINNER 05/24/17 Furosemide [Lasix] 80 mg PO BREAKFAST 05/24/17 Meloxicam [Mobic] 15 mg PO DAILY 05/24/17 Temazepam [Restoril] 30 mg PO QHS 05/24/17 Ranolazine [Ranexa] 1 tab PO BID 06/08/17 Aspirin [Aspirin, Baby] 81 mg PO QHS 06/09/17 Acetaminophen [Tylenol Tablet] 650 mg PO Q6H PRN PRN tab 06/10/17 gabapentin 600 mg tablet 600 mg PO .Q HS tab 01/06/18 loratadine 10 mg tablet 10 mg PO QDAY 01/06/18 bupropion HCl SR 150 mg tablet,12 hr sustained-release 150 mg PO BID 01/08/18 pantoprazole 40 mg tablet,delayed release 40 mg PO DAILY tab 01/08/18 potassium chloride ER 20 mEq tablet,extended release 40 meq PO QDAY tab 01/08/18 ramipril 5 mg capsule 2.5 mg PO DAILY cap 01/08/18 isosorbide mononitrate ER 60 mg tablet,extended release 24 hr 60 mg PO BID #180 tab 01/15/18 nitroglycerin 0.4 mg sublingual tablet 0.4 mg SUBLINGUAL Q5M PRN #25 tab 01/15/18 clopidogrel 75 mg tablet 75 mg PO DAILY #90 tab 01/29/18 carvedilol 25 mg tablet 25 mg PO BID #180 tab 03/10/18 Cephalexin [Keflex] 500 mg PO Q8 #21 cap 04/04/18 The following prescriptions were given: Cephalexin [Keflex] 500 mg PO Q8 #21 cap Primary Care Physician: Speedy Boswell MD [Primary Care Provider] - Within 2 Weeks Please Follow Up With: Rick Vilchis MD When: PRN Proposed Discharge Date: 04/04/18
--- NOTE | 2018-04-04 10:54 | PCM.DC.SUM ---
Discharge Date and Diagnosis - Problem List Patient Problems: Active and Suspected Problems (Last Reviewed 01/08/18 @ 14:35 by Divina Ahumada) Cellulitis of right lower extremity (Acute) Date of Admission: 04/01/18 Date of Discharge: 04/04/18 - Primary Discharge Diagnosis Active and Suspected Problems (Last Reviewed 01/08/18 @ 14:35 by Divina Ahumada) Cellulitis of right lower extremity (Acute) - Secondary Discharge Diagnosis Chronic Problems (Last Reviewed 01/08/18 @ 14:35 by Divina Ahumada) Lymphedema of right lower extremity (Chronic) Automatic implantable cardioverter-defibrillator in situ (Chronic) Chronic systolic congestive heart failure (Chronic) Presence of stent in coronary artery (Chronic) PTCA/stent to prox LAD 02/02/05; PTCA/stent instent restenosis of prox LAD 10/15/13 Atherosclerotic heart disease of [place] coronary artery without angina pectoris (Chronic) CABG x2- PARK to LAD, SARIAH to OM 06/01/05; PTCA/stent to prox LAD 02/02/05; PTCA/stent instent restenosis of prox LAD 10/15/13 Shortness of breath (Chronic) Postsurgical aortocoronary bypass status (Chronic ~06/01/05) CABG x2- PARK to LAD, SARIAH to OM 06/01/05 Family history of CVA (Chronic) Ischemic cardiomyopathy (Chronic) Hyperlipidemia (Chronic) Hypertension (Chronic) ICD (implantable cardioverter-defibrillator) in place (Chronic ~08/17/10) ICD Implant 2009 Hospital Course and Treatment Consultations 04/01/18 23:23 Consult: 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 Seen @ wound center [facility] Operations: None Procedures: - - Duplex Right leg. 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 Followed by radiation treatment. Patient has chronic lymphedema of the lower extremity. Patient has also had intermittent cellulitis of that leg. Patient was not septic but was started on IV antibiotics. Patient was put on ceftezole and and did well. Patient expressed apprehension about being put on to oral antibiotics given his history of coronary him being put on to prematurely and developed worsening cellulitis. Patient was monitored and actually did improve over the past couple days. Patient was seen in consultation by Dr. Vilchis of infectious disease and patient will be discharged with Keflex 500 twice daily for 1 week. Patient has been receiving monthly shots of penicillin through his primary care doctor. I advised patient to follow-up with infectious disease to see if those would still be indicated or not. Patient is due for his next shot next week but I told the patient to hold off on that as he is currently on antibiotics. [] Discharge Diet: Low fat/ Low Cholesterol Discharge Activity: Return to Normal Activity Call your doctor if you observe: Fever of 101 or Higher, - - worsening swelling and erythema of right leg. Home Medications: Medications to take at Discharge Atorvastatin Calcium [Lipitor] 40 mg PO DINNER 10/05/13 Montelukast [Singulair] 10 mg PO DAILY 10/05/13 Niacin SA [Niaspan] 1,000 mg PO QHS 10/05/13 Escitalopram Oxalate [Lexapro] 20 mg PO DAILY 11/02/14 Furosemide [Lasix] 40 mg PO DINNER 05/24/17 Furosemide [Lasix] 80 mg PO BREAKFAST 05/24/17 Meloxicam [Mobic] 15 mg PO DAILY 05/24/17 Temazepam [Restoril] 30 mg PO QHS 05/24/17 Ranolazine [Ranexa] 1 tab PO BID 06/08/17 Aspirin [Aspirin, Baby] 81 mg PO QHS 06/09/17 Acetaminophen [Tylenol Tablet] 650 mg PO Q6H PRN PRN tab 06/10/17 gabapentin 600 mg tablet 600 mg PO .Q HS tab 01/06/18 loratadine 10 mg tablet 10 mg PO QDAY 01/06/18 bupropion HCl SR 150 mg tablet,12 hr sustained-release 150 mg PO BID 01/08/18 pantoprazole 40 mg tablet,delayed release 40 mg PO DAILY tab 01/08/18 potassium chloride ER 20 mEq tablet,extended release 40 meq PO QDAY tab 01/08/18 ramipril 5 mg capsule 2.5 mg PO DAILY cap 01/08/18 isosorbide mononitrate ER 60 mg tablet,extended release 24 hr 60 mg PO BID #180 tab 01/15/18 nitroglycerin 0.4 mg sublingual tablet 0.4 mg SUBLINGUAL Q5M PRN #25 tab 01/15/18 clopidogrel 75 mg tablet 75 mg PO DAILY #90 tab 01/29/18 carvedilol 25 mg tablet 25 mg PO BID #180 tab 03/10/18 Cephalexin [Keflex] 500 mg PO Q8 #21 cap 04/04/18 Following Prescrptions Were Given to Patient: Cephalexin [Keflex] 500 mg PO Q8 #21 cap Primary Care Physician: Speedy Boswell MD [Primary Care Provider] - Within 2 Weeks Please Follow Up With: Rick Vilchis MD When: PRN Disposition: Home Minutes spent on discharge:: 32 Patient Condition:: Good Medical Necessity - Tobacco Use Smoking Status: Former smoker Meaningful Use Info Meaningful Use Diagnoses (Choose all that apply): None applicable Code Visit Inpatient E&M: 97232 Disch Hosp
--- NOTE | 2018-04-04 10:57 | DS.PCM_ITS ---
Discharge Date and Diagnosis - Problem List Patient Problems: Active and Suspected Problems (Last Reviewed 01/08/18 @ 14:35 by Divina Ahumada) Cellulitis of right lower extremity (Acute) Date of Admission: 04/01/18 Date of Discharge: 04/04/18 - Primary Discharge Diagnosis Active and Suspected Problems (Last Reviewed 01/08/18 @ 14:35 by Divina Ahumada) Cellulitis of right lower extremity (Acute) - Secondary Discharge Diagnosis Chronic Problems (Last Reviewed 01/08/18 @ 14:35 by Divina Ahumada) Lymphedema of right lower extremity (Chronic) Automatic implantable cardioverter-defibrillator in situ (Chronic) Chronic systolic congestive heart failure (Chronic) Presence of stent in coronary artery (Chronic) PTCA/stent to prox LAD 02/02/05; PTCA/stent instent restenosis of prox LAD Atherosclerotic heart disease of [place] coronary artery without angina pectoris (Chronic) CABG x2- PARK to LAD, SARIAH to OM 06/01/05; PTCA/stent to prox LAD 02/02/05; PTCA/stent instent restenosis of prox LAD 10/15/13 Shortness of breath (Chronic) Postsurgical aortocoronary bypass status (Chronic ~06/01/05) CABG x2- PARK to LAD, SARIAH to OM 06/01/05 Family history of CVA (Chronic) Ischemic cardiomyopathy (Chronic) Hyperlipidemia (Chronic) Hypertension (Chronic) ICD (implantable cardioverter-defibrillator) in place (Chronic ~08/17/10) ICD Implant 2009 Hospital Course and Treatment Consultations 04/01/18 23:23 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 Seen @ wound center [facility] Operations: None Procedures: - - Duplex Right leg. 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 Followed by radiation treatment. Patient has chronic lymphedema of the lower extremity. Patient has also had intermittent cellulitis of that leg. Patient was not septic but was started on IV antibiotics. Patient was put on ceftezole and and did well. Patient expressed apprehension about being put on to oral antibiotics given his history of coronary him being put on to prematurely and developed worsening cellulitis. Patient was monitored and actually did improve over the past couple days. Patient was seen in consultation by Dr. Vilchis of infectious disease and patient will be discharged with Keflex 500 twice daily for 1 week. Patient has been receiving monthly shots of penicillin through his primary care doctor. I advised patient to follow-up with infectious disease to see if those would still be indicated or not. Patient is due for his next shot next week but I told the patient to hold off on that as he is currently on antibiotics. [] Discharge Diet: Low fat/ Low Cholesterol Discharge Activity: Return to Normal Activity Call your doctor if you observe: Fever of 101 or Higher, - - worsening swelling and erythema of right leg. Home Medications: Medications to take at Discharge Atorvastatin Calcium [Lipitor] 40 mg PO DINNER 10/05/13 Montelukast [Singulair] 10 mg PO DAILY 10/05/13 Niacin SA [Niaspan] 1,000 mg PO QHS 10/05/13 Escitalopram Oxalate [Lexapro] 20 mg PO DAILY 11/02/14 Furosemide [Lasix] 40 mg PO DINNER 05/24/17 Furosemide [Lasix] 80 mg PO BREAKFAST 05/24/17 Meloxicam [Mobic] 15 mg PO DAILY 05/24/17 Temazepam [Restoril] 30 mg PO QHS 05/24/17 Ranolazine [Ranexa] 1 tab PO BID 06/08/17 Aspirin [Aspirin, Baby] 81 mg PO QHS 06/09/17 Acetaminophen [Tylenol Tablet] 650 mg PO Q6H PRN PRN tab 06/10/17 gabapentin 600 mg tablet 600 mg PO .Q HS tab 01/06/18 loratadine 10 mg tablet 10 mg PO QDAY 01/06/18 bupropion HCl SR 150 mg tablet,12 hr sustained-release 150 mg PO BID 01/08/18 pantoprazole 40 mg tablet,delayed release 40 mg PO DAILY tab 01/08/18 potassium chloride ER 20 mEq tablet,extended release 40 meq PO QDAY tab ramipril 5 mg capsule 2.5 mg PO DAILY cap 01/08/18 isosorbide mononitrate ER 60 mg tablet,extended release 24 hr 60 mg PO BID #180 tab 01/15/18 nitroglycerin 0.4 mg sublingual tablet 0.4 mg SUBLINGUAL Q5M PRN #25 tab clopidogrel 75 mg tablet 75 mg PO DAILY #90 tab 01/29/18 carvedilol 25 mg tablet 25 mg PO BID #180 tab 03/10/18 Cephalexin [Keflex] 500 mg PO Q8 #21 cap 04/04/18 Following Prescrptions Were Given to Patient: Cephalexin [Keflex] 500 mg PO Q8 #21 cap Primary Care Physician: Speedy Boswell MD [Primary Care Provider] - Within 2 Weeks Please Follow Up With: Rick Vilchis MD When: PRN Disposition: Home Minutes spent on discharge:: 32 Patient Condition:: Good Medical Necessity - Tobacco Use Smoking Status: Former smoker Meaningful Use Info Meaningful Use Diagnoses (Choose all that apply): None applicable Code Visit Inpatient E&M: 33874 Disch Hosp
[2018-04-04 12:12] VITALS: BP 120/69; PULSE 64; RESP 18; TEMP 36.6; O2SAT 97
--- NOTE | 2018-04-07 15:35 | CASEMGMT ---
JUANCHO POON Discharge Follow-up Phone Call: DOMINIQUE: Estevan Strata: 3 Call Date: 04/07/18 Discharge Date: 04/04/18 Time of Call: 1530 Duration: 5 min Admitting Diagnosis: RLE Cellulitis with lymphedema JUANCHO POON spoke with patient regarding follow-up since discharged from hospital. Patient states that he is doing well. No questions or concerns regarding discharge instructions or medication. Patient was able to pickup prescription without any problems. Patient stated he received excellent care while at [facility]. Patient has follow-up appt scheduled with PCP for next week.
== END 2018-04-04 12:25 | disposition home or self-care (01) | DRG 603 ==
LOC: ED 20:34 → MS3 21:30
PROVIDERS: Admitting Provider Internal Medicine; Emergency Provider Emergency Medicine; Family Provider Family Medicine; PCP Family Medicine
DX: L03.115 Cellulitis of right lower limb (principal); I50.22 Chronic systolic (congestive) heart failure; I13.0 Hypertensive heart and chronic kidney disease with heart failure and stage 1 through stage 4 chronic kidney disease, or unspecified chronic kidney disease; I89.0 Lymphedema, not elsewhere classified; I25.10 Atherosclerotic heart disease of native coronary artery without angina pectoris; E78.5 Hyperlipidemia, unspecified; N18.3 Chronic kidney disease, stage 3 (moderate); I25.5 Ischemic cardiomyopathy; Z95.5 Presence of coronary angioplasty implant and graft; Z95.1 Presence of aortocoronary bypass graft; Z82.3 Family history of stroke; Z87.891 Personal history of nicotine dependence; Z95.810 Presence of automatic (implantable) cardiac defibrillator; Z79.82 Long term (current) use of aspirin
CPT/HCPCS: 36415; 80048; 80053; 82962; 83036; 83605; 85025; 85610; 85652; 85730; 87040; 93970; 99284; J7030; J7040; A4216

== ENCOUNTER 2018-04-26 10:37 | Emergency (ER) | payer OTHER, SELFPAY ==
[2018-04-26 10:38] VITALS: BP 149/101; PULSE 76; RESP 22; TEMP 36.6; O2SAT 98; BMI 43.4
--- NOTE | 2018-04-26 10:51 | RAD_ITS ---
STUDY: X-RAY - RIGHT SHOULDER REASON FOR EXAM: Male, 63 years old. Patient fell yesterday. TECHNIQUE: For view(s) of the shoulder. COMPARISON: None. FINDINGS: Normal glenohumeral articulation. There is degenerative arthrosis of the acromioclavicular joint without inferior osseous spur formation. Normal acromion. Normal humeral head and visualized proximal humerus. The soft tissue structures are unremarkable. There is no demonstrated fracture. Normal visualized pulmonary apex. RAD/Shoulder min 2 Views IMPRESSION: Degenerative changes in the acromioclavicular joint. No demonstrated acute fracture or dislocation. Electronically Signed: Reginald Stack MD at 11:14 EDT Tel , Service support ,
--- NOTE | 2018-04-26 11:21 | ED.VISSUMM ---
- ER Visit Summary Date of Service: 04/26/18 Chief Complaint: [Injury right shoulder] History of Present Illness: The patient is a 63 M [presents the emergency department complaint of injury to his right shoulder that occurred yesterday. Patient states that he was hot yesterday went to step outside and fell injuring his right shoulder. Patient was able to catch himself and initially did not think much of the injury. Patient subsequently went and sat in a recliner when he try to push out of the recliner with his arms to get up he had a severe pain in the right shoulder radiating down his arm. Patient has pain with certain motions of the arm. Patient denies any other injuries.] Physical Examination: [HEENT-PERRLA, EOMI. Cranial nerves II through XII grossly intact. TMs clear. Mucous membranes moist. No adenopathy. Cardiovascular-regular rate and rhythm without murmur or ectopy Lungs-clear to auscultation, chest wall stable without crepitus or subcu emphysema Abdomen-normoactive bowel sounds, soft, nontender, no rebound or rigidity, no peritoneal signs. Extremities-intact ?4, normal range of motion, normal pulses, atraumatic]. Patient has some mild discomfort about the glenohumeral joint. Patient has pain with abduction at the glenohumeral joint and has difficulty resisting abduction. He is neurovascular intact distally. Deep tendon reflexes are plus 2 out of 4 bilaterally at the bicep, tricep, and brachioradialis. Test Results: [X-rays of the right shoulder obtained showed degenerative changes at the acromioclavicular joint but no fractures or dislocations.] Emergency Department Course and Treatment: [Patient was given a sling] Treatment Plan: [Patient given a prescription for [place] for pain. Patient will be referred to orthopedics on-call.] Disposition: [Discharged home in stable condition] Impression: [Right shoulder strain possible internal derangement] This note was generated with [employer] dictation software. It may contain incorrect words, spelling, and punctuation that were not noted in review of the chart prior to signing ED Disposition - Plan for ED Patient: Chief Complaint: Upper Extremity Injury Referrals: Speedy Boswell MD [Primary Care Provider] -
--- NOTE | 2018-04-26 11:24 | ED.DEP ---
ED Disposition - Plan for ED Patient: Chief Complaint: Upper Extremity Injury Instructions: ED Sprain Shoulder Prescriptions: Hydrocodone/Acetaminophen [[place] 5-325 Tablet] 1 - 2 ea PO 4X/DAY PRN PRN 3 Days #12 tab PRN Reason: Pain Referrals: Speedy Boswell MD [Primary Care Provider] - Herminio Biswas MD [STAFF PHYSICIAN] - 3-5 Days
[2018-04-26 11:32] VITALS: BP 138/84; PULSE 71; RESP 16; O2SAT 98
== END 2018-04-26 11:32 | disposition home or self-care (01) ==
PROVIDERS: Emergency Provider Emergency Medicine; Family Provider Family Medicine; PCP Family Medicine
DX: S46.911A Strain of unspecified muscle, fascia and tendon at shoulder and upper arm level, right arm, initial encounter (principal); W19.XXXA Unspecified fall, initial encounter; Y93.9 Activity, unspecified; Y92.89 Other specified places as the place of occurrence of the external cause; Y99.9 Unspecified external cause status; I25.10 Atherosclerotic heart disease of native coronary artery without angina pectoris; I10 Essential (primary) hypertension; E78.00 Pure hypercholesterolemia, unspecified; K21.9 Gastro-esophageal reflux disease without esophagitis; I25.2 Old myocardial infarction
CPT/HCPCS: 73030; 99283

== ENCOUNTER 2018-06-08 20:03 | Emergency (ER) | payer OTHER, SELFPAY ==
[2018-06-08 20:04] VITALS: BP 130/87; PULSE 90; RESP 15; TEMP 36.2; O2SAT 98; BMI 44.5
[2018-06-08] MEDS: 0.9% Normal Saline 1,000 ML 150 ML IV (20:59)
[2018-06-08] MEDS: Glucagon 1 MG/ML Syringe IV (20:59)
[2018-06-08 21:13] LABS: Absolute Lymphocyte Count 1.17 X10^3/ul (0.83-4.51); Absolute Neutrophil Count 5.4 X10^3/uL (2.0-7.7); Basophil# 0.03 X10^3/uL; Basophil% 0.4 % (0-1); Eosinophils% 2.7 % (0-5); Hematocrit 39.6 % (40-54); Hemoglobin 13.6 g/dl (13.0-16.5); Lymphocyte # 1.17 X10^3/ul (4.0); Lymphocyte % 15.8 % (19-41); Mean Corp Hgb Conc 34.3 g/gl (32-36); Mean Corpuscular Hgb 31.3 pg (27.0-32.0); Mean Corpuscular Volume 91.2 fL (80-94); Mean Platelet Vol. 9.3 fl (6.2-12.0); Monocyte# 0.61 X10^3/uL; Monocyte% 8.2 % (0-10); Neutrophil # 5.36 X10^3/uL (2.7-7.7); Neutrophil % 72.5 % (47-70); Platelet Count 186 K/mm3 (150-450); RBC Distribution Width CV 12.8 % (11.6-14.6); RBC Distribution Width SD 41.7 fl (35.1-43.9); Red Blood Count 4.34 M/mm3 (4.6-6.2); White Blood Count 7.4 K/mm3 (4.4-11.0)
[2018-06-08 21:18] LABS: POSITIVE COUNT NO; POSITIVE DIFFERENTIAL NO; POSITIVE MORPHOLOGY NO
[2018-06-08 21:29] LABS: Anion Gap 6 (5-15); BUN 14 mg/dL (7-18); Calcium,Total 8.7 mg/dL (8.5-10.1); Chloride 109 mmol/L (98-107); Creatinine, Serum 1.17 mg/dL (0.70-1.30); EST Glomerular Filtration Rate 67 mL/min (>60); Est Glom Filt Rate - Afr Amer 81 mL/min (>60); Estimated Creatinine Clearance 70.93 ml/min; Glucose 95 mg/dL (74-106); Potassium 3.7 mmol/L (3.5-5.1); Sodium Level 140 mmol/L (136-145)
[2018-06-08] MEDS: Ondansetron 4 MG/2 ML Vial IV (22:00)
--- NOTE | 2018-06-08 22:02 | ED.VISSUMM ---
- ER Visit Summary Date of Service: 06/08/18 Chief Complaint: Esophageal impaction History of Present Illness: The patient is a [address] Speedy Akhtar, Dr. George, Dr. Mtz. He reports that he has a history of partial esophageal impactions and had endoscopy Dr. George 1-2 years ago. States that since that time has been careful in chewing his food. This evening he was eating steak and felt as though it got stuck. He tried multiple times to bring this back up into swallow ice tea without relief. States that it feels like it is caught in his throat. Physical Examination: Vitals: Stable. Afebrile. General: Well-nourished and well-developed. Head: Normocephalic atraumatic. Neck: Supple, no lymphadenopathy. No JVD. Nontender. Cardiovascular: Regular rate and rhythm. No murmurs. Respiratory: No respiratory distress. Clear to auscultation bilaterally. Abdominal: Soft, nontender, nondistended, normal bowel sounds. No guarding, rebound, or peritoneal signs. Back: Nontender. Extremities: Nontender, 3+ pitting edema of his right lower extremity only. Skin: Normal color, no rash. Neurologic: Alert and oriented ?3. Cranial nerves II through XII are intact. Normal strength and sensation. Psych: Normal affect. Test Results: CBC is marked for hematocrit of 39.6, segment neutrophils 73, lymphs at 16. Chem-7 more for chloride of 109. Emergency Department Course and Treatment: Patient had an IV placed. He was given glucagon IV. He was able to drink a can of cola without any difficulty. He did complain of nausea. I suspect this is secondary to glucagon. Is given a dose of Zofran IV and is resting comfortably. Treatment Plan: Patient is having no difficulty swallowing at this time. He will be discharged instructions follow-up Dr. George next 3-5 days for further evaluation. Return to the emergency department for any worsening symptoms. Disposition: To home in improved and stable condition. Impression: 1. Esophageal impaction, resolved. This note was generated with [employer] dictation software. It may contain incorrect words, spelling, and punctuation that were not noted in review of the chart prior to signing ED Disposition - Plan for ED Patient: Disposition: Home or Assisted Living Chief Complaint: Foreign Body Instructions: ED Foreign Body Esophageal Rslv Referrals: Cary George MD [STAFF PHYSICIAN] - 3-5 Days
[2018-06-08 22:58] VITALS: BP 105/72; PULSE 72; RESP 18; O2SAT 98
== END 2018-06-08 22:59 | disposition home or self-care (01) ==
PROVIDERS: Emergency Provider Emergency Medicine; Family Provider Family Medicine; PCP Family Medicine
DX: T18.128A Food in esophagus causing other injury, initial encounter (principal); R11.0 Nausea; I25.10 Atherosclerotic heart disease of native coronary artery without angina pectoris; I10 Essential (primary) hypertension; E78.00 Pure hypercholesterolemia, unspecified
CPT/HCPCS: 80048; 85025; 99285; J7030; A4216; J1610; J2405

== ENCOUNTER 2018-07-28 07:19 | Day surgery (SDC) | payer OTHER, SELFPAY ==
[2018-07-21 16:04] LABS: Hematocrit 44.2 % (40-54); Hemoglobin 14.5 g/dl (13.0-16.5); Mean Corp Hgb Conc 32.8 g/gl (32-36); Mean Corpuscular Hgb 30.3 pg (27.0-32.0); Mean Corpuscular Volume 92.5 fL (80-94); Mean Platelet Vol. 9.5 fl (6.2-12.0); Platelet Count 189 K/mm3 (150-450); RBC Distribution Width CV 13.2 % (11.6-14.6); RBC Distribution Width SD 44.4 fl (35.1-43.9); Red Blood Count 4.78 M/mm3 (4.6-6.2); White Blood Count 5.3 K/mm3 (4.4-11.0)
[2018-07-21 16:06] LABS: Scan Indicated on CBC? Y/N NO
[2018-07-21 16:51] LABS: Anion Gap 12 (5-15); BUN 14 mg/dL (7-18); BUN/Creat Ratio 11.3 RATIO (10-20); Calcium,Total 9.2 mg/dL (8.5-10.1); Chloride 108 mmol/L (98-107); Creatinine, Serum 1.24 mg/dL (0.70-1.30); EST Glomerular Filtration Rate 63 mL/min (>60); Est Glom Filt Rate - Afr Amer 76 mL/min (>60); Glucose 111 mg/dL (74-106); Sodium Level 143 mmol/L (136-145)
[2018-07-28] VITALS (7 sets, daily range): BP systolic 120–148; BP diastolic 70–88; PULSE 62–67; RESP 16–20; TEMP 36.1–37; O2SAT 95–98; BMI 43.3
[2018-07-28] MEDS: Bupiv/Epi 0.5% Mpf 30 ML Vial (11:07)
--- NOTE | 2018-07-28 11:10 | PCM.IMDPSTOP ---
Immediate Post-Op Note Date of Procedure: 07/28/18 Primary Surgeon/Physician: Louis Cazares tripe scraper: Torsten Tijerina Pre-Operative Diagnosis: Right shoulder SAIS, AC arthrosis, bicipital tendinopathy and rotator cuff tear Post-Operative Diagnosis: same Surgery/Procedure Performed:: Right shoulder ASD, Krystle procedure, bicipital tenotomy and rotator cuff repair Description of Surgical Findings:: see op note Estimated Blood Loss: minimal Specimen's removed: none Type of Anesthesia:: General ASA Class: ASA3 Severe Disease - Admit VTE Documentation VTE Present on Admission: No VTE Mechan Device Prophylaxis: SCD's, Knee High IJEOMA Hose VTE Pharm Prophylaxis ordered?: No Reason prophylaxis not ordered:: Treatment Not Indicated
--- NOTE | 2018-07-28 11:16 | PCM.OP.BLANK ---
Operative Report Primary Surgeon/Physician: Louis Cazares D.O. blow mold operator: Torsten Tijerina PA-C blow mold operator: Pre-Operative Diagnosis: Right shoulder SAIS, AC arthrosis, biceps tendinopathy and rotator cuff tear Post-Operative Diagnosis: same Surgery/Procedure Performed: Right ASD, Krystle, bicipital tenotomy and rotator cuff repair Estimated Blood Loss: minimal Specimen's Removed: none Type of Anesthesia: general ASA Class: 3 Implants: [Arthrex corkscrew anchor fibertape and fiberlink] Surgical Indications: [ ] Procedure Description: Patient was greeted in the preoperative area. Their [Right ] shoulder was marked with surgical marker. Preoperative antibiotics were administered. The patient was then taken to the operating suite in a stable condition. After adequate anesthesia was obtained and it was secured there placed in standard beachchair position. All bony prominences were well-padded her head was secured in a beachchair positioner. The arm was then prepped and draped in the usual sterile fashion. Surgical timeout was performed surgery was commenced. Standard posterior viewing portal was made and 30? arthroscope was introduced into the glenohumeral joint. Anterior portal was made under direct visualization. Extensive debridement of the anterior capsule was performed evaluation of the shoulder itself was performed with the following findings: [The glenohumeral joint was in good condition without arthrosis. The biceps tendon was frayed and had significant interstitial tearing. There was a complete, delaminated tear of the supraspinatus. A biceps tenotomy was performed with a basket forcep and the arthroscopy shaver. ]. The subacromial space was then entered and extensive debridement of the subacromial bursa was performed. The undersurface of the acromion was then debrided with a thermal wand. This did reveal a type II acromion. Subacromial decompression was then performed with a arthroscopic bur from anterolateral posteromedial create a type I acromion. When this was complete the wand was then utilized to debride the acromioclavicular joint. There were significant osteoarthritic changes of the AC joint. A distal clavicle resection was then performed removing approximately 5 mm of distal clavicle not violating the superior acromioclavicular ligament. This was complete attention was then turned to the rotator cuff [A complete tear of the supraspinatus tendon was appreciated. ]. The greater tuberosity was debrided and decorticated to create some bleeding for rotator cuff healing. [The rotator cuff tear was then grasped with a mattress suture using the Arthrex fibertape. A locking suture was then placed ]. Excellent approximation of the rotator cuff to the decorticated bone was achieved and the sutures were secured using an Arthrex swivellock anchor. At this point all instruments were removed and the arthroscopic portals were closed with 3-0 nylon. Well-padded nonadherent dressing was applied and patient was taken to recovery room in stable condition. My reproductive healthcare assistant, Mr. Tijerina, played a vital role in this procedure. He assisted with positioning, held the arm during the decompression and rotator cuff repair and ultimately closed the arthroscopy wounds and applied the sterile dressing and sling.
[2018-07-28] MEDS: Ketorolac 15 MG/ML Vial IV (12:05)
[2018-07-28] MEDS: HYDROcodone Bitartrate/Apap 5/325 Tablet PO (12:51)
== END 2018-07-28 14:05 | disposition home or self-care (01) ==
LOC: SDC 07:20 → AC 07:20
PROVIDERS: Family Provider Family Medicine; PCP Family Medicine; Visit Provider Orthopaedic Surgery
PROC: (CPT 29827; principal; 2018-07-28 09:15)
DX: S43.421A Sprain of right rotator cuff capsule, initial encounter (principal); I25.10 Atherosclerotic heart disease of native coronary artery without angina pectoris; I25.2 Old myocardial infarction; I10 Essential (primary) hypertension; E78.00 Pure hypercholesterolemia, unspecified; Z87.891 Personal history of nicotine dependence
CPT/HCPCS: 29824; 29827; 29828; 36415; 80048; 85027; J7120; J2405

== ENCOUNTER 2018-10-02 16:10 | Emergency (ER) | payer MEDICARE, OTHER, SELFPAY ==
[2018-10-02 16:11] VITALS: BP 140/82; PULSE 70; RESP 14; TEMP 36.5; O2SAT 97; BMI 31.4
--- NOTE | 2018-10-02 16:29 | VDLE_ITS ---
Reason For Study: pain RIGHT GSV is normal. CFV is compressible, spontaneous, phasic, competent and demonstrates normal augmentation. FV is compressible, spontaneous, phasic, competent and demonstrates normal augmentation. POP V is compressible, spontaneous, phasic, competent and demonstrates normal augmentation. T/P Trunk is compressible. PTV is compressible. Unable to image Peroneal V due to edema. Procedure Exam performed portable in ED. The exam was of fair technical quality due to edema. Limited views of all veins. A preliminary report was called and/or faxed to Dr. Orozco. <> Interpretation Summary Deep veins of the right lower extremity are patent and compressible segmentally. There is no evidence of right lower extremity deep vein thrombosis. Valvular competence appears intact within the proximal deep venous system on the right . The right greater saphenous vein appears patent and compressible segmentally. The right peroneal vein was not visualized due to edema. Ordering Physician: Louis Orozco Performed By: Gabriel Bee RVT
--- NOTE | 2018-10-02 17:23 | ED.DCSUM_ITS ---
- ER Visit Summary Date of Service: 10/02/18 Chief Complaint: Leg swelling History of Present Illness: The patient is a 63 M presents to the emergency department with leg swelling. Patient is a history of chronic lymphedema. 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 It was treated surgically in the early by Dr. Rahman in [place]. He states because of this, he had rather significant lymphedema of the leg. He states over the past few months, it is gotten mildly worse. He is actually scheduled to have an [id number] amputation early next year for this. He states that it feels like it has gotten worse over the past few weeks. He denies any chest pain or shortness of breath. He actually called his physician today who sent him in for further evaluation. He has no history of pulmonary embolus. Physical Examination: Exam is relatively unremarkable. The patient does have 4+ edema of the lower extremity from the knee down. His pulses are palpable. His cap refill is 2 seconds. There is no evidence of vascular insufficiency. There is no skin breakdown or cellulitis. Test Results: [] Emergency Department Course and Treatment: I did obtain an ultrasound of the lower extremity. There is no evidence of DVT. I do feel that this is just exacerbation of his chronic lymphedema. Patient has no chest pain or dyspnea. I do feel that he is safe to continue outpatient therapy. He will be given a short course of analgesics and will follow up with orthopedics as scheduled. Treatment Plan: [] Disposition: Discharge Impression: 1. Right lower extremity edema acute on chronic This note was generated with [employer] dictation software. It may contain incorrect words, spelling, and punctuation that were not noted in review of the chart prior to signing ED Disposition - Plan for ED Patient: Chief Complaint: Lower Extremity Injury Instructions: ED Leg Swelling Unilateral Prescriptions: Hydrocodone Bitart/Apap 5-325 [[place] 5MG-325MG] 1 tab PO Q6H PRN PRN 3 Days #10 tab PRN Reason: Pain Referrals: Speedy Boswell MD [Primary Care Provider] -
[2018-10-02 17:33] VITALS: BP 149/74; PULSE 67; RESP 18; O2SAT 95
== END 2018-10-02 17:33 | disposition home or self-care (01) ==
LOC: ED 17:00
PROVIDERS: Emergency Provider Emergency Medicine; Family Provider Family Medicine; PCP Family Medicine
DX: R60.0 Localized edema (principal); I10 Essential (primary) hypertension; E78.00 Pure hypercholesterolemia, unspecified; I25.10 Atherosclerotic heart disease of native coronary artery without angina pectoris; K21.9 Gastro-esophageal reflux disease without esophagitis; I50.9 Heart failure, unspecified; Z85.89 Personal history of malignant neoplasm of other organs and systems
CPT/HCPCS: 93971; 99282

== ENCOUNTER → 2018-11-06 13:47 | Outpatient (CLI) | payer MEDICARE, OTHER, SELFPAY ==
[2018-11-06 13:39] VITALS: BMI 45.5
[2018-11-06 15:28] LABS: PSA,Total - Annual Screen 0.44 ng/mL (0.00-4.00)
== END ==
PROVIDERS: Family Provider Family Medicine; PCP Family Medicine; Referring Provider Urology; Visit Provider Urology
DX: Z12.5 Encounter for screening for malignant neoplasm of prostate (principal)
CPT/HCPCS: 36415; 84153; G0103

== ENCOUNTER → 2018-11-13 15:03 | Outpatient (CLI) | payer MEDICARE, OTHER, SELFPAY ==
[2018-11-06 13:39] VITALS: BMI 45.5
--- NOTE | 2018-11-13 15:05 | CT_ITS ---
STUDY: CT ABDOMEN AND PELVIS WITHOUT CONTRAST REASON FOR EXAM: Male, 63 years old. History of kidney stones. History of right leg sarcoma with radiation therapy, scheduled for right leg dictation. History of coronary artery bypass. RADIATION DOSAGE (If Supplied By Facility): CTDIvol = ( 46.02 ) mGy, DLP = ( 2425.86 ) mGycm TECHNIQUE: Transaxial images were obtained from the dome of the diaphragm to the symphysis pubis without oral contrast, and without intravenous contrast. Sagittal and coronal images were reconstructed. Individualized dose optimization techniques were used for this CT. COMPARISON: CT abdomen and pelvis 08/27/2012 FINDINGS: Body wall soft tissues: There are surgical clips just distal to the right groin in the superior aspect of the anterior thigh. A few small inguinal lymph nodes bilaterally, none pathologically enlarged. Induration in the subcutaneous fat and skin thickening of the anterior and anterolateral proximal thigh on the right. Likely reflecting the patient's radiation therapy. Osseous structures: Median sternotomy. No suspicious lytic or blastic osseous lesions are apparent. There are mild degenerative features of the right hip joint. Left total hip arthroplasty appears to be normally seated and articulated. There is multilevel lumbar degenerative disc disease most notable of the low lumbar spine and associated with at least mild foraminal narrowing at multiple levels between L3 and S1. Mild scoliosis. Inferior chest: Lung bases clear. Normal distal esophagus. Mild cardiomegaly. 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 CABG. Mild ectasia in particular of the left atrium compared to the other chambers. Pacer wires present. No pericardial effusion. Hepatobiliary: Normal. Pancreas: No acute process. Spleen: Normal. Adrenal glands: Normal. Urogenital: Chronic perinephric stranding. 3 nonobstructing calyceal calculi of the left kidney, 2 of the right kidney. The largest on the left measures approximately 7 x 5 mm, the largest on the right approximately 6 x 5 mm. Grossly simple appearing cyst of the left kidney mid polar anterior cortex partially exophytic, sharply circumscribed, water density centrally, 1.8 cm. Incompletely characterized on noncontrast CT Normal collecting systems, ureters, urinary bladder, prostate and seminal vesicles. Pelvic floor and sidewalls and retroperitoneum: No mass or adenopathy. Vasculature: Minimal atherosclerosis. Stomach: No acute process. Small bowel and mesentery: No acute process. Large bowel: Normal appendix. Unremarkable large bowel and rectum. Free fluid or free air: None. CT/Abdomen/Pelvis without Cont IMPRESSION: No acute abdominopelvic process is evident. 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 Nonobstructing calyceal calculi are present in each kidney. No evidence of recent calculus passage. Electronically Signed: Nic Zaman MD at 17:19 EST Tel , Service support ,
--- OUTSIDE RECORDS SUMMARY | 2018-12-30 12:41 | XMS RPT_ITS ---
:1955 Author Organization OHIP Support Name Relationship Address Phone WHIT ISSA Unavailable Unavailable + [place] [address] DAVE ISSA Unavailable Unavailable + [place] [address] D Unavailable Unavailable Unavailable LUIS MANUEL, WHIT Unavailable . + [place] [address] DAVE ISSA Unavailable . + [place] [address] D Unavailable Unavailable Unavailable LUIS MANUEL, WHIT Unavailable Unavailable + [place] [address] DAVE ISSA Unavailable Unavailable + [place] [address] D Unavailable Unavailable Unavailable LUIS MANUEL, WHIT Unavailable Unavailable + [place] [address] DAVE ISSA Unavailable Unavailable + [place] [address] D Unavailable Unavailable Unavailable LUIS MANUEL, WHIT Unavailable 1 + [place] [address] DAVE ISSA Unavailable 1 + [place] [address] D Unavailable Unavailable Unavailable LUIS MANUEL, WHIT Unavailable 1 + [place] [address] DAVE ISSA Unavailable 1 + [place] [address] D Unavailable Unavailable Unavailable LUIS MANUEL, WHIT Unavailable 1 + [place] [address] DAVE ISSA Unavailable 1 + [place] [address] D Unavailable Unavailable Unavailable LUIS MANUEL, WHIT Unavailable Unavailable + DAVE ISSA Unavailable Unavailable + D Unavailable Unavailable Unavailable LUIS MANUEL, WHIT Unavailable . + [place] [address] DAVE ISSA Unavailable . + [place] [address] D Unavailable Unavailable Unavailable CHARLES ISSA Unavailable Unavailable + KELVIN ISSAN Unavailable . + [place] [address] DAVE ISSA Unavailable . + [place] [address] D Unavailable Unavailable Unavailable LUIS MANUEL WHIT Unavailable . + [place] [address] DAVE ISSA Unavailable . + [place] [address] D Unavailable Unavailable Unavailable KELVIN ISSAN Unavailable Unavailable + DAVE ISSA Unavailable Unavailable + D Unavailable Unavailable Unavailable LUIS MANUEL WHIT Unavailable Unavailable + DAVE ISSA Unavailable Unavailable + D Unavailable Unavailable Unavailable KELVIN ISSAN Unavailable Unavailable + [place] [address] DAVE ISSA Unavailable Unavailable + [place] [address] D Unavailable Unavailable Unavailable KELVIN ISSAN Unavailable Unavailable + DAVE ISSA Unavailable Unavailable + D Unavailable Unavailable Unavailable LUIS MANUEL, WHIT Unavailable Unavailable + DAVE ISSA Unavailable Unavailable + D Unavailable Unavailable Unavailable LUIS MANUEL WHIT Unavailable Unavailable + DAVE ISSA Unavailable Unavailable + D Unavailable Unavailable Unavailable LUIS MANUEL WHIT Unavailable Unavailable + DAVE ISSA Unavailable Unavailable + D Unavailable Unavailable Unavailable DAVE ISSA Unavailable [place] + [place] Unavailable Unavailable Unavailable JOSH ISSAFER Unavailable [place] + [place] Unavailable Unavailable Unavailable JOSH ISSAFER Unavailable [place] + [place] D Unavailable Unavailable Unavailable Care Team Providers Name Role Phone CHUY BURR, DR. GARCIA Attending Unavailable DR. JOSE VERA DO Primary Care Unavailable Bethany Deng Attending Unavailable Boswell, Speedy Referring Unavailable Moodispayared, Speedy Attending Unavailable Moodispaw, Speedy Referring Unavailable Boswell, Speedy Primary Care Unavailable Divina Ahumada Attending Unavailable MoodispaSpeedy vail Attending Unavailable Boswell, Speedy Referring Unavailable Boswell, Speedy Primary Care Unavailable Moodispayared, Speedy Attending Unavailable Moodispaw, Speedy Referring Unavailable Boswell, Speedy Primary Care Unavailable Boswell, Speedy Primary Care Unavailable Jd, Adán Admitting Unavailable JoppJameson barahonaic Attending Unavailable Mame, Rick Consulting Unavailable Jd, Adán Attending Unavailable Boswell, Speedy Primary Care Unavailable SowmyaBethany brewer Attending Unavailable Boswell, Speedy Referring Unavailable Jd, Adán Admitting Unavailable Jopperi, Paco Attending Unavailable Boswell, Speedy Primary Care Unavailable Jopperi, Paco Consulting Unavailable Jd, Adán Admitting Unavailable Jopperi, Paco Attending Unavailable Boswell, Speedy Primary Care Unavailable Mame, Rick Consulting Unavailable Jopperi, Paco Consulting Unavailable Jd, Adán Admitting Unavailable JoppJameson barahonaic Attending Unavailable Boswell, Speedy Primary Care Unavailable Mame, Rick Consulting Unavailable Jopperi, Paco Consulting Unavailable Boswell, Speedy Primary Care Unavailable Noah Harrison Attending Unavailable Bethany Deng Attending Unavailable Boswell, Speedy Referring Unavailable Boswell, Speedy Primary Care Unavailable Boswell, Speedy Primary Care Unavailable Diaz Cortez Attending Unavailable Jose Vera Attending Unavailable Chuy, Jose Referring Unavailable Boswell, Speedy Primary Care Unavailable Divina Giles Attending Unavailable Boswell, Speedy Referring Unavailable Bethany Deng Attending Unavailable Boswell, Speedy Referring Unavailable Boswell, Speedy Primary Care Unavailable Jose Orozco Attending Unavailable Speedy Mtz Attending Unavailable Boswell, Speedy Referring Unavailable GloryRavi Attending Unavailable GloryRavi butcher Referring Unavailable Boswell, Speedy Primary Care Unavailable GloryRavi Attending Unavailable Glory, Ravi Santiago Referring Unavailable Boswell, Speedy Primary Care Unavailable PROBLEMS PROBLEMS DATE TYPE CONDITION / CODE ATTENDING STATUS SOURCE 12/23/2018 Unknown I25.10 - Speedy Mtz Atherosclerotic heart Community disease of [facility] coronary artery Repository without angina pectoris / I25.10(ICD-10) 12/23/2018 Unknown Z95.1 - Presence of Speedy Mtz Active [place] aortocoronary bypass Community graft / Z95.1(ICD-10) Hospital Repository 12/23/2018 Unknown Z95.5 - Presence of Speedy Mtz Active [place] coronary angioplasty Community implant and graft / Hospital Z95.5(ICD-10) Repository 10/02/2018 Unknown I89.0 - Lymphedema, Jose Orozco Active [place] not elsewhere Community classified / Hospital I89.0(ICD-10) Repository 08/27/2018 Unknown I25.5 - Ischemic Aurelia Denganne Active [place] cardiomyopathy / Community I25.5(ICD-10) Hospital Repository 08/27/2018 Unknown Z95.810 - Presence of Bethany Deng Active [place] automatic Community (implantable) cardiac Hospital defibrillator / Repository Z95.810(ICD-10) 04/26/2018 Unknown S43.409A - UngurNoah Active [place] Unspecified sprain of Community unspecified shoulder Hospital joint, initial Repository encounter / S43.409A(ICD-10) 07/02/2018 Unknown L03.115 - Cellulitis Paco [facility] Active [place] of right lower limb / Community L03.115(ICD-10) Hospital Repository 01/08/2018 Unknown E78.5 - Speedy Mtz Active [place] Hyperlipidemia, Community unspecified / Hospital E78.5(ICD-10) Repository PROCEDURES PROCEDURES No Procedure Records FoundRESULTS RESULTS ECHOCARDIOGRAM COMPLETE Observed: 12/23/2018 Status: F Source: [place] 7:46 PM [facility] REPOSITORY [facility] Cardiovascular Services [address] [place] [address] Echo Complete W/ Contrast 12/23/18 0903 MR#: [id number] Acct: [id number] Name: ARISTIDES ISSA Rep #: [id number] : 1955 63 From: Speedy Mtz MD Attending Dr: Speedy Mtz MD Status: REG CLI Ordering Dr: Speedy Mtz MD Date: 12/23/18 Location: [facility] Sex: M C Admitted: Reason For Study: CAD/ASHD Procedure This was a 2D Doppler, Color Flow transthoracic echocardiogram. The study was technically difficult. Contrast injection was performed. Exam performed in department. Left Ventricle Mildly dilated left ventricle. Moderate segmental systolic dysfunction (see wall motion). The estimated ejection fraction is 35 %. No evidence for diastolic dysfunction. Infero-Basal: Hypokinetic. Basal inferoseptal: Hypokinetic. Basal anteroseptal: Hypokinetic. Mid-Anterior : Hypokinetic. Mid-Inferior: Hypokinetic. Mid-inferoseptal : Akinetic. Mid-anteroseptal : Akinetic. Anterior Monroe : Akinetic. Inferior Monroe : Akinetic. Lateral Monroe : Dyskinetic. Septal Monroe : Akinetic. Right Ventricle Normal RV size. ICD or pacer leads identified within the right ventricle. Normal systolic function. Atria Normal left atrium. Normal right atrium. ICD or pacer leads identified within the right atrium. No doppler evidence for ASD. Mitral Valve There is no mitral annular calcification. Normal mitral valve. Trivial mitral valve insufficiency. Tricuspid Valve Normal tricuspid valve. Trivial tricuspid valve insufficiency. Unable to estimate RV systolic pressure/pulmonary artery pressure due to technically difficult study. Aortic Valve Trisinus/trileaflet aortic valve. Mild focal aortic valve thickening. Pulmonic Valve The pulmonic valve is not well visualized. Mild (1+) pulmonic valve insufficiency. Great Vessels Normal sized aortic root. Pericardium/Pleural No pericardial effusion. Medication 22 gauge I.V. with prn adaptor inserted into left arm. Diluted definity 5ml given slow IV push to enhance endocardial definition. MMode/2D Measurements AND Calculations LVIDd: 5.5 cm IVSd: 1.2 cm Ao root diam: 3.3 cm LVIDs: 4.3 cm LVPWd: 1.4 cm LA dimension: 4.4 cm FS: 21.2 % LAV(MOD-bp): 50.5 ml LVAd ap4: 37.6 cm2 SV(MOD-sp4): 50.4 ml LAV(MOD-bp) Indexed: 19.6 ml/m2 EDV(MOD-sp4): 126.9 ml LAV(MOD-sp2): 49.8 ml EDV(sp4-el): 129.1 ml LAV(MOD-sp4): 49.1 ml LVAs ap4: 28.3 cm2 ESV(MOD-sp4): 76.5 ml ESV(sp4-el): 80.7 ml EF(MOD-sp4): 39.7 % EF(sp4-el): 37.4 % SV(sp4-el): 48.3 ml LA A4 area: 18.5 cm2 Time Measurements MV dec time: 0.39 sec Doppler Measurements AND Calculations MV E max bozena: 41.4 cm/sec Lat Peak E' Bozena: 6.1 cm/sec Med Peak E' Bozena: 5.8 cm/sec MV A max bozena: 69.9 cm/sec E/E' lat: 6.8 E/E' med: 7.1 MV E/A: 0.59 MV V2 max: 78.3 cm/sec Ao V2 max: 123.9 cm/sec LV V1 max: 104.9 cm/sec MV max P.5 mmHg Ao max P.1 mmHg LV V1 max P.4 mmHg MV V2 mean: 40.2 cm/sec Ao V2 mean: 85.5 cm/sec LV V1 mean P.9 mmHg MV mean P.75 mmHg Ao mean P.3 mmHg LV V1 mean: 62.0 cm/sec MV V2 VTI: 30.4 cm Ao V2 VTI: 23.2 cm LV V1 VTI: 20.7 cm PA V2 max: 78.0 cm/sec Interpretation Summary The study was technically difficult. Contrast injection was performed. Mildly dilated left ventricle. Moderate segmental systolic dysfunction (see wall motion). The estimated ejection fraction is 35 %. Trivial mitral valve insufficiency. Trivial tricuspid valve insufficiency. Mild focal aortic valve thickening. Mild (1+) pulmonic valve insufficiency. Unable to estimate RV systolic pressure/pulmonary artery pressure due to technically difficult study. No evidence for diastolic dysfunction. ICD or pacer leads identified within the right atrium ICD or pacer leads identified within the right ventricle. Ordering Physician: Speedy Mtz Referring Physician: Speedy Mtz Performed By: Orion Ware RCS 12/23/181945 Date Speedy Mtz MD CC: Speedy Mtz MD; Speedy Boswell MD Date Dictated: 12/23/18902 Date Transcribed: 12/23/181945 Academic Support Coordinator: Signed STRESS REPORT Observed: 12/23/2018 Status: F Source: [place] 9:20 AM [facility] [place] [address] MR#: [id number] Acct: [id number] Name: ARISTIDES ISSA Rep #: [id number] : 1955 63 From: Speedy Mtz MD Primary Care: Speedy Boswell MD Status: REG CLI Ordering Dr: Alva Chatterjee Stress Test Report Date: 12/23/2018 Procedure: Pharmacologic (regadenoson) evaluation Indications: CAD; status post PCI; status post CABG; ischemic mediated cardiomyopathy; ICD; preoperative cardiovascular evaluation Consent: Per the patient Procedure: The patient underwent pharmacologic (regadenoson) evaluation with a peak heart rate of 78 beats per minute (49% predicted maximal heart rate) with a peak blood pressure 130/84 mmHg. The base line ECG demonstrated normal sinus rhythm with a possible anterolateral WA pattern of indeterminate age. The peak pharmacological ECG demonstrated no obvious ECG changes. There was an isolated PVC during infusion. There was no complaint of chest discomfort during pharmacologic infusion or recovery. The examination was discontinued secondary to completion of protocol. Impression: 1. Pharmacologic (regadenoson) evaluation 2. Peak pharmacologic ECG with no obvious ECG changes 3. Isolated PVCs during infusion 4. Nuclear images pending Myocardial perfusion imaging study: Technique: The patient was injected with 14.9 mci of technetium 99 M Cardiolite and subsequently rest SPECT Cardiolite nuclear imaging was obtained in the horizontal long, vertical long, and short axis views. The patient underwent pharmacologic (regadenoson) evaluation with a peak heart rate of 78 beats per minute (49% predicted maximal heart rate) with a peak blood pressure 130/84 mmHg. The patient was injected with 44.8 mci of technetium 99 M Cardiolite and subsequently stress SPECT Cardiolite nuclear imaging was obtained in the horizontal long, vertical long, and short axis views. A gated Cardiolite study at peak stress was obtained. Interpretation: Rest and stress SPECT Cardiolite nuclear imaging status post realignment, normalization, and attenuation correction, demonstrates the appearance of areas of extra cardiac/gastrointestinal tracer uptake near the inferior segments. There was diminished to absence of tracer uptake in portions of the mid to distal anterior segments, distal anterolateral/inferolateral segments, and the apical segments without significant change between rest and stress. There is diminished end systolic thickening and brightening in the aforementioned areas. The gated Cardiolite study demonstrates diminished myocardial thickening and inward wall motion in the aforementioned areas. The reported LVEF is 36%. Impression: 1. Rest and stress SPECT Cardiolite nuclear imaging demonstrate myocardial perfusion changes compatible with areas of previous myocardial injury/infarction involving portions of the anterior, anterolateral, and inferolateral segments as well as the apical segments with no myocardial perfusion changes considered diagnostic for associated stress induced myocardial ischemia. 2. The gated LVEF is a 36%. This note was generated using a voice recognition system and there may be incorrect words, spelling or punctuation that were not noted when reviewing the office note prior to saving. 12/23/18919 <Electronically signed by Speedy Mtz MD> Date Speedy Mtz MD CC: Speedy Mtz MD; Speedy Boswell MD Date Dictated: 12/23/18910 Date Transcribed: 12/23/18910 Academic Support Coordinator: PM Signed ABDOMEN/PELVIS WITHOUT Observed: 11/13/2018 Status: F Source: [place] CONT 3:05 PM [facility] REPOSITORY [facility] Imaging Services [address] [place] [address] Abdomen/Pelvis without Cont MR#: [id number] Acct: [id number] Name: ARISTIDES ISSA Rep #: [id number] : 1955 M 63 From: Nic Zaman MD PCP: Speedy Boswell MD Status: REG CLI Study: Abdomen/Pelvis without Cont Date of Exam: 11/13/18 Exam# [id number] Ordering Dr: Ravi Holder MD STUDY: CT ABDOMEN AND PELVIS WITHOUT CONTRAST REASON FOR EXAM: Male, 63 years old. History of kidney stones. History of right leg sarcoma with radiation therapy, scheduled for right leg dictation. History of coronary artery bypass. RADIATION DOSAGE (If Supplied By Facility): CTDIvol = ( 46.02 ) mGy, DLP = ( 2425.86 ) mGycm TECHNIQUE: Transaxial images were obtained from the dome of the diaphragm to the symphysis pubis without oral contrast, and without intravenous contrast. Sagittal and coronal images were reconstructed. Individualized dose optimization techniques were used for this CT. COMPARISON: CT abdomen and pelvis 08/27/2012 FINDINGS: Body wall soft tissues: There are surgical clips just distal to the right groin in the superior aspect of the anterior thigh. A few small inguinal lymph nodes bilaterally, none pathologically enlarged. Induration in the subcutaneous fat and skin thickening of the anterior and anterolateral proximal thigh on the right. Likely reflecting the patient's radiation therapy. Osseous structures: Median sternotomy. No suspicious lytic or blastic osseous lesions are apparent. There are mild degenerative features of the right hip joint. Left total hip arthroplasty appears to be normally seated and articulated. There is multilevel lumbar degenerative disc disease most notable of the low lumbar spine and associated with at least mild foraminal narrowing at multiple levels between L3 and S1. Mild scoliosis. Inferior chest: Lung bases clear. Normal distal esophagus. Mild cardiomegaly. 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 CABG. Mild ectasia in particular of the left atrium compared to the other chambers. Pacer wires present. No pericardial effusion. Hepatobiliary: Normal. Pancreas: No acute process. Spleen: Normal. Adrenal glands: Normal. Urogenital: Chronic perinephric stranding. 3 nonobstructing calyceal calculi of the left kidney, 2 of the right kidney. The largest on the left measures approximately 7 x 5 mm, the largest on the right approximately 6 x 5 mm. Grossly simple appearing cyst of the left kidney mid polar anterior cortex partially exophytic, sharply circumscribed, water density centrally, 1.8 cm. Incompletely characterized on noncontrast CT Normal collecting systems, ureters, urinary bladder, prostate and seminal vesicles. Pelvic floor and sidewalls and retroperitoneum: No mass or adenopathy. Vasculature: Minimal atherosclerosis. Stomach: No acute process. Small bowel and mesentery: No acute process. Large bowel: Normal appendix. Unremarkable large bowel and rectum. Free fluid or free air: None. CT/Abdomen/Pelvis without Cont IMPRESSION: No acute abdominopelvic process is evident. 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 Nonobstructing calyceal calculi are present in each kidney. No evidence of recent calculus passage. Electronically Signed: Nic Zaman MD at 17:19 EST Tel , Service support , CC: Ravi Holder MD; Speedy Boswell MD Academic Support Coordinator: Signed PSA,TOTAL - ANNUAL Collected: 11/06/2018 Status: F Source: [place] SCREEN 1:52 PM [facility] REPOSITORY TYPE CODE TESTS RESULT OUT OF RANGE REFERENCE UNITS LAB L501.9910 0.00-4.00 ng/mL Normal PSA,TOT 0.44 SCREEN Result Comment: This test was performed using the TPSA assay method for the [employer] chemistry system. Values obtained with different assay methods cannot be used interchangably. When changing PSA assays in the course of monitoring a patient, additional sequential testing should be carried out to confirm baseline values. Performed By: #### L501.9910 #### [facility] [address] [facility] [place], [address] CARDIOLOGY VISIT Observed: 10/09/2018 Status: F Source: [place] REPORT 5:11 PM [facility] REPOSITORY [facility] [address] [place] [address] OFFICE VISIT Date of Service: 10/09/18 MR#: [id number] Acct: [id number] Name: ARISTIDES ISSA Rep #: [id number] : 1955 Provider: Speedy Mtz MD Age/Sex: 63/M Location: [facility] Status: Signed HPI HPI Details: ARISTIDES ISSA, is a 63 M who presents to the office today for for outpatient cardiovascular follow-up. He states overall from a cardiac standpoint he has been doing reasonably well with respect and no ongoing issues of classic angina pectoris and he has not had use nitroglycerin sublingual. There has been no issues with overt acute CHF or pulmonary edema. There has been no near syncope or syncope or ICD discharge. He states he is considering having his right lower extremity amputated. This would take place most likely in the first quarter of 2019 after he continues to recuperate from his recent right shoulder surgery. He went through his right shoulder surgery without any obvious acute cardiovascular complications. Intake Vital Signs10/09/18 Height 6 ft 10/09/18 Weight: 324 lb 10/09/18 Body Mass Index (BMI) 43.9 10/09/18 Blood Pressure 122/72 H Intake Visit Reasons: Consult re Leg issues\PFM Allergies No Known Allergies Allergy (Verified 10/09/18 16:20) Medications Montelukast [Singulair] 10 mg PO DAILY 10/05/13 [History Confirmed 10/09/18] Niacin SA [Niaspan] 1,000 mg PO QHS 10/05/13 [History Confirmed 10/09/18] Escitalopram Oxalate [Lexapro] 20 mg PO DAILY 11/02/14 [History Confirmed 10/09/18] Meloxicam [Mobic] 15 mg PO DAILY 05/24/17 [History Confirmed 10/09/18] Temazepam [Restoril] 30 mg PO QHS 05/24/17 [History Confirmed 10/09/18] Aspirin [Aspirin, Baby] 81 mg PO QHS 06/09/17 [History Confirmed 10/09/18] Acetaminophen [Tylenol Tablet] 650 mg PO Q6H PRN PRN tab 06/10/17 [Rx Confirmed 07/28/18] gabapentin 600 mg tablet 600 mg PO QHS tab 01/06/18 [History Confirmed 10/09/18] loratadine 10 mg tablet 10 mg PO QDAY 01/06/18 [History Confirmed 10/09/18] bupropion HCl SR 150 mg tablet,12 hr sustained-release 150 mg PO BID 01/08/18 [History Confirmed 10/09/18] pantoprazole 40 mg tablet,delayed release 40 mg PO DAILY tab 01/08/18 [History Confirmed 10/09/18] isosorbide mononitrate ER 60 mg tablet,extended release 24 hr 60 mg PO BID #180 tab 01/15/18 [Rx Confirmed 10/09/18] nitroglycerin 0.4 mg sublingual tablet 0.4 mg SUBLINGUAL Q5M PRN #25 tab 01/15/18 [Rx Confirmed 10/09/18] clopidogrel 75 mg tablet 75 mg PO DAILY #90 tab 01/29/18 [Rx Confirmed 10/09/18] potassium chloride ER 20 mEq tablet,extended release 40 meq PO QDAY #180 tab 05/20/18 [Rx Confirmed 10/09/18] ramipril 2.5 mg capsule 2.5 mg PO DAILY #90 cap 06/24/18 [Rx Confirmed 10/09/18] Furosemide [Lasix] 40 mg PO DINNER 07/11/18 [History Confirmed 10/09/18] Furosemide [Lasix] 80 mg PO DAILY 07/11/18 [History Confirmed 10/09/18] Pen G Toan/Pen G Procaine [Bicillin C-R 900-300 Syringe] 1,200,000 unit IM QMONTH 07/11/18 [History Confirmed 10/09/18] atorvastatin 40 mg tablet 40 mg PO DINNER #30 tab 07/21/18 [Rx Confirmed 10/09/18] carvedilol 25 mg tablet 25 mg PO BID #180 tab 07/21/18 [Rx Confirmed 10/09/18] ranolazine ER 1,000 mg tablet,extended release,12 hr 1,000 mg PO BID #180 tab 09/01/18 [Rx Confirmed 10/09/18] [facility] Medical History Chronic systolic congestive heart failure (Chronic) 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) Shortness of breath (Chronic) History of tobacco abuse (Acute) Family history of CVA (Chronic) Ischemic cardiomyopathy (Chronic) Hyperlipidemia (Chronic) Hypertension (Chronic) ICD (implantable cardioverter-defibrillator) in place (Chronic 08/17/10) Family history of CVA (Acute) GERD (gastroesophageal reflux disease) (Acute) History of tobacco abuse (Acute) Lymphedema of right lower extremity (Acute) Acute lymphangitis of right lower extremity (Inactive) Atherosclerosis of coronary artery bypass graft without angina pectoris (Inactive) CAD (coronary artery disease) (Inactive) Chronic Systolic CHF - EF 45% (Inactive) Effects of radiation (Inactive) GERD (gastroesophageal reflux disease) (Inactive) Gastroenteritis (Inactive) History of 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 (Inactive) senior care use of drug (Inactive) Lymphedema of Right Leg (Inactive) Lymphedema of right lower extremity (Inactive) Morbid obesity with BMI of 40.0-44.9, adult (Inactive) SIRS (systemic inflammatory response syndrome) (Inactive) Surgical History Presence of stent in coronary artery (Chronic) Postsurgical aortocoronary bypass status (Chronic 06/01/05) Status post right rotator cuff repair (Resolved) History of percutaneous transluminal coronary angioplasty (Inactive) Family History Mother CAD (coronary artery disease) Father CVA (cerebral vascular accident) Myocardial infarction Brother CAD (coronary artery disease) Hx of CABG Brother CAD (coronary artery disease) Hx of CABG Social History Smoking Status: Former smoker ROS Const Const: Negative for fatigue, weakness, weight gain, weight loss, frequent falls or excessive sweating Eyes Eyes: Negative for change in vision, blurry vision or transient loss of vision ENT ENT: Negative for dizziness or balance problems Cardio Chest Pain: No Palpitations: No Edema: None Muscle aches with walking: None Resp Respiratory: Negative for SOB with activity or SOB at rest GI GI: Negative vomiting or vomiting blood/hematemesis : Negative for hematuria Musc Musc: Negative for balance problems, muscle aches/ myalgia, muscle weakness or joint pain Skin Skin: Negative non-healing lesions or rash Neuro Neuro: Negative for weakness, blurry vision, dizziness, lightheadedness, frequent falls or orthostatic symptoms Gavin Hematologic/Lymphatic: Negative for easy bleeding Endo Endo: Negative for fatigue or excessive sweating Psych Psych: Negative for anxiety or depression Allergy Allergy/Immunology: Negative for hives, Negative for rash Cardiology Exam Const Appearance: cooperative, healthy appearing, comfortable, no acute distress, well developed and well groomed Nutritional Appearance: obese Orientation: alert, awake and oriented x3 Head Head: normal to inspection, normocephalic and atraumatic Nose: external nose normal Face and Sinus: face symmetric Mouth: oral mucosae normal Teeth and gingiva: fair dentition Eyes Eyelids: eyelids normal Conjunctivae: conjunctivae normal Pupils: PERRL EOM: EOM intact bilaterally Neck Neck: normal visual inspection and full ROM Carotids: normal carotid upstroke Chest Chest inspection: normal inspection of the chest and symmetric chest movement Auscultation: Bilateral: Clear to Auscultation Cardio Palpation: normal PMI Rate: regular rate Rhythm: regular rhythm Heart sounds: S1 normal and S2 normal GI GI: obese, normal to inspection, bowel sounds present and soft Neuro General: alert, awake and oriented x3 Skin Skin: no rashes or lesions noted Extremities Pulses: Normal: Right Radial Pulse, Left Radial Pulse Lower Extremity Edema: +3: Right Psych Psychological: normal affect Supplemental Info Heart catheterization in 2012 demonstrated a patent PARK which is essentially nonfunctional, 30% ostial left main stenosis, LAD with proximal in-stent 50% stenosis, dominant left circumflex with no stenosis, nondominant RCA with no stenosis. Reduced ejection fraction of 25-30% with akinetic posterior wall. In December 2013 ejection fraction was noted to be 30%. He did have a stent to his LAD for in-stent stenosis. Echocardiogram in 2015 demonstrates Mildly dilated left ventricle. Moderate segmental systolic dysfunction (see wall motion). The estimated ejection fraction is 35 %. Trivial mitral valve insufficiency. Trivial tricuspid valve insufficiency. Mild focal aortic valve thickening. Trivial pulmonic valve insufficiency. Unable to estimate RV systolic pressure. ICD or pacer leads identified within the right atrium ICD or pacer leads identified within the right ventricle Stress test in June 2016 demonstrated previous myocardial injury/infarction involving areas of the mid to distal anterior, anterior apical, septal, apical, inferior/inferior apical and lateral apical segments with no myocardial perfusion changes. Assessment AND Plan 1. Atherosclerosis of hoh coronary artery of hoh heart without angina pectoris I25.10 CABG x2- PARK to LAD, SARIAH to OM 06/01/05; PTCA/stent to prox LAD 02/02/05; PTCA/stent instent restenosis of prox LAD 10/15/13 Plan At the present time he appears to be without acute symptoms. He will continue his current medical management. It was thought not unreasonable, noting his complex cardiovascular history and an upcoming right lower extremity amputation that he undergo further preoperative cardiovascular assessment. This will include a follow-up transthoracic echocardiogram and a pharmacologic stress nuclear imaging study. Certainly if there are concerns he would need further appropriate evaluation and care. If not hopefully this would assist with his surgical evaluation and care. He knows that he would be at an increased risk for adverse cardiovascular events from noncardiac surgery based upon his extensive cardiovascular disease process. However hopefully if he remains clinically stable with no acute findings then with close monitoring of his cardiac rate, rhythm, blood pressure, and volume status, that his risks may be kept at a minimum. Orders Orders: 2. Presence of stent in coronary artery Z95.5 PTCA/stent to prox LAD 02/02/05; PTCA/stent instent restenosis of prox LAD 10/15/13 Plan He does have a history of previous PCI as noted above. Again he will continue medical therapy and follow-up as described above Orders Orders: 3. Postsurgical aortocoronary bypass status Z95.1 CABG x2- PARK to LAD, SARIAH to OM 06/01/05 Plan He has undergone CABG in the past. Since then he is undergone noninvasive and invasive studies. He will continue medical management and follow-up as described Orders Orders: 4. Cardiomyopathy, ischemic I25.5 Plan He does have an underlying ischemic mediated cardiomyopathy. He has been treated medically. He is undergone revascularization therapy. He does have an ICD in place. 5. Chronic systolic CHF (congestive heart failure) I50.22 Plan He does have chronic systolic CHF. He appears to be without acute symptoms at this time. Again he will continue his current medical management and follow-up. 6. Automatic implantable cardioverter-defibrillator in situ Z95.810 Plan His ICD has been followed. It has been functioning appropriately. 7. Pure hypercholesterolemia E78.00 Plan His lipid labs have been reviewed. They have remained under good control. He will continue medical management. 8. Essential hypertension I10 Plan His blood pressure appears to be well controlled today. He will continue his medical therapy. Plan Detail Additional Comments The above was discussed with him. He was agreeable to this. Thus he will be scheduled for upcoming noninvasive studies in the first quarter of 2018. He will be reassessed as deemed appropriate. He will notify the office of any concerns in the interim. Thank you for allowing me to participate in the care of your patient. Please don't hesitate to call if any issues arise. This note was generated using a voice recognition system and there may be incorrect words, spelling or punctuation that were not noted when reviewing the office note prior to saving. Follow Up 3 Months ( as scheduled) Coding Level of Care Code Off vis,est,level 4 Diagnoses Atherosclerosis of hoh coronary artery of hoh heart without angina pectoris I25.10 [place] vs. transplanted heart: hoh heart Presence of stent in coronary artery Z95.5 Postsurgical aortocoronary bypass status Z95.1 Cardiomyopathy, ischemic I25.5 Chronic systolic CHF (congestive heart failure) I50.22 Automatic implantable cardioverter-defibrillator in situ Z95.810 Pure hypercholesterolemia E78.00 Hyperlipidemia type: pure hypercholesterolemia Essential hypertension I10 Hypertension type: essential hypertension Coding Level of Care Code Off vis,est,level 4 Diagnoses Atherosclerosis of hoh coronary artery of hoh heart without angina pectoris I25.10 [place] vs. transplanted heart: hoh heart Presence of stent in coronary artery Z95.5 Postsurgical aortocoronary bypass status Z95.1 Cardiomyopathy, ischemic I25.5 Chronic systolic CHF (congestive heart failure) I50.22 Automatic implantable cardioverter-defibrillator in situ Z95.810 Pure hypercholesterolemia E78.00 Hyperlipidemia type: pure hypercholesterolemia Essential hypertension I10 Hypertension type: essential hypertension 10/09/18 1711 <Electronically signed by Speedy Mzt MD> Date Speedy Mtz MD Cosigner Signature: Date (if applicable) CC: Speedy Boswell MD VENOUS DUPLEX LOWER Observed: 10/03/2018 Status: F Source: [place] EXTREMITY 7:40 AM [facility] [place] REPOSITORY [facility] Cardiovascular Services [address] [place] [address] Venous Duplex US, Unilateral 10/02/18 1640 MR#: [id number] Acct: [id number] Name: ARISTIDES ISSA Rep #: [id number] : 1955 63 From: Wei Partida MD Attending Dr: Status: DEP ER Ordering Dr: Jose Orozco MD Date: 10/02/18 Location: ED Sex: M C Admitted: Reason For Study: pain RIGHT GSV is normal. CFV is compressible, spontaneous, phasic, competent and demonstrates normal augmentation. FV is compressible, spontaneous, phasic, competent and demonstrates normal augmentation. POP V is compressible, spontaneous, phasic, competent and demonstrates normal augmentation. T/P Trunk is compressible. PTV is compressible. Unable to image Peroneal V due to edema. Procedure Exam performed portable in ED. The exam was of fair technical quality due to edema. Limited views of all veins. A preliminary report was called and/or faxed to Dr. Orozco. <> Interpretation Summary Deep veins of the right lower extremity are patent and compressible segmentally. There is no evidence of right lower extremity deep vein thrombosis. Valvular competence appears intact within the proximal deep venous system on the right . The right greater saphenous vein appears patent and compressible segmentally. The right peroneal vein was not visualized due to edema. Ordering Physician: Jose Orozco Performed By: Gabriel Bee RVT 10/03/18 0740 Date Wei Partdia MD CC: Jose Orozco MD; Speedy Boswell MD Date Dictated: 10/02/18 1640 Date Transcribed: 10/03/18 0740 Academic Support Coordinator: Signed EMERGENCY DEPARTMENT Observed: 10/02/2018 Status: F Source: [place] SUMMARY 10:28 PM [facility] [place] REPOSITORY [facility] Medical Records Department [address] [place] [address] Emergency Department Summary 10/02/18 1721 MR#: [id number] Acct: [id number] Name: ARISTIDES ISSA Rep #: [id number] : 1955 63 From: Jose Orozco MD PCP: Speedy Boswell MD Status: DEP ER - ER Visit Summary Date of Service: 10/02/18 Chief Complaint: Leg swelling History of Present Illness: The patient is a 63 M presents to the emergency department with leg swelling. Patient is a history of chronic lymphedema. 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 It was treated surgically in the early s by Dr. Rahman in [place]. He states because of this, he had rather significant lymphedema of the leg. He states over the past few months, it is gotten mildly worse. He is actually scheduled to have an [id number]-[id number] amputation early next year for this. He states that it feels like it has gotten worse over the past few weeks. He denies any chest pain or shortness of breath. He actually called his physician today who sent him in for further evaluation. He has no history of pulmonary embolus. Physical Examination: Exam is relatively unremarkable. The patient does have 4+ edema of the lower extremity from the knee down. His pulses are palpable. His cap refill is 2 seconds. There is no evidence of vascular insufficiency. There is no skin breakdown or cellulitis. Test Results: [] Emergency Department Course and Treatment: I did obtain an ultrasound of the lower extremity. There is no evidence of DVT. I do feel that this is just exacerbation of his chronic lymphedema. Patient has no chest pain or dyspnea. I do feel that he is safe to continue outpatient therapy. He will be given a short course of analgesics and will follow up with orthopedics as scheduled. Treatment Plan: [] Disposition: Discharge Impression: 1. Right lower extremity edema acute on chronic This note was generated with [employer] dictation software. It may contain incorrect words, spelling, and punctuation that were not noted in review of the chart prior to signing ED Disposition - Plan for ED Patient: Chief Complaint: Lower Extremity Injury Instructions: ED Leg Swelling Unilateral Prescriptions: Hydrocodone Bitart/Apap 5-325 [Ponder 5MG-325MG] 1 tab PO Q6H PRN PRN 3 Days #10 tab PRN Reason: Pain Referrals: Speedy Boswell MD [Primary Care Provider] - What to do if you have Problems For any increased pain, shortness of breath, bleeding, nausea or vomiting, chest pain, or any unexpected problems, contact your Primary Care Provider. Call [facility] ([phone]) or report to the closest Emergency Room. Call 911 if necessary. 10/02/18 0262 <Electronically signed by Jose Orozco MD> Date Jose Orozco MD Cosigner Signature (If Indicated): Date CC: Speedy Boswell MD PACEMAKER CHECK Observed: 08/26/2018 Status: F Source: [place] 2:22 PM [facility] REPOSITORY [facility] [address] [place] [address] Pacemaker Check Date of Service: 08/26/18 1328 MR#: [id number] Acct: [id number] Name: ARISTIDES ISSA Rep #: [id number] : 1955 From: Bethany Deng Age/Sex: 63/M Location: [facility] [place] Status: Signed Billing Codes ICD Device Billing: ICD Dev Prog Eval, Dual 08/26/18 1329 <Electronically signed by Bethany Deng > Date Bethany Deng 08/26/18 1422<Electronically signed by Speedy Mtz MD> Cosigner Signature: Date (if applicable) Speedy Mtz MD CC: OPERATIVE REPORT Observed: 07/28/2018 Status: F Source: [place] 11:30 AM [facility] [place] REPOSITORY [facility] Medical Records Department [address] [place] [address] Operative Report 07/28/18 1116 MR#: [id number] Acct: [id number] Name: ARISTIDES ISSA Rep #: [id number] : 1955 63 From: Jose Vera DO PCP: Speedy Boswell MD Status: REG SDC Y Location: [place] [address] Operative Report Primary Surgeon/Physician: Jose Vera D.O. tapering machine operator: Torsten Janas, PA-C tapering machine operator: Pre-Operative Diagnosis: Right shoulder SAIS, AC arthrosis, biceps tendinopathy and rotator cuff tear Post-Operative Diagnosis: same Surgery/Procedure Performed: Right ASD, Krystle, bicipital tenotomy and rotator cuff repair Estimated Blood Loss: minimal Specimen's Removed: none Type of Anesthesia: general ASA Class: 3 Implants: [Arthrex corkscrew anchor fibertape and fiberlink] Surgical Indications: [ ] Procedure Description: Patient was greeted in the preoperative area. Their [Right ] shoulder was marked with surgical marker. Preoperative antibiotics were administered. The patient was then taken to the operating suite in a stable condition. After adequate anesthesia was obtained and it was secured there placed in standard beachchair position. All bony prominences were well-padded her head was secured in a beachchair positioner. The arm was then prepped and draped in the usual sterile fashion. Surgical timeout was performed surgery was commenced. Standard posterior viewing portal was made and 30 arthroscope was introduced into the glenohumeral joint. Anterior portal was made under direct visualization. Extensive debridement of the anterior capsule was performed evaluation of the shoulder itself was performed with the following findings: [The glenohumeral joint was in good condition without arthrosis. The biceps tendon was frayed and had significant interstitial tearing. There was a complete, delaminated tear of the supraspinatus. A biceps tenotomy was performed with a basket forcep and the arthroscopy shaver. ]. The subacromial space was then entered and extensive debridement of the subacromial bursa was performed. The undersurface of the acromion was then debrided with a thermal wand. This did reveal a type II acromion. Subacromial decompression was then performed with a arthroscopic bur from anterolateral posteromedial create a type I acromion. When this was complete the wand was then utilized to debride the acromioclavicular joint. There were significant osteoarthritic changes of the AC joint. A distal clavicle resection was then performed removing approximately 5 mm of distal clavicle not violating the superior acromioclavicular ligament. This was complete attention was then turned to the rotator cuff [A complete tear of the supraspinatus tendon was appreciated. ]. The greater tuberosity was debrided and decorticated to create some bleeding for rotator cuff healing. [The rotator cuff tear was then grasped with a mattress suture using the Arthrex fibertape. A locking suture was then placed ]. Excellent approximation of the rotator cuff to the decorticated bone was achieved and the sutures were secured using an Arthrex swivellock anchor. At this point all instruments were removed and the arthroscopic portals were closed with 3-0 nylon. Well-padded nonadherent dressing was applied and patient was taken to recovery room in stable condition. My post production assistant, Lilliana, played a vital role in this procedure. He assisted with positioning, held the arm during the decompression and rotator cuff repair and ultimately closed the arthroscopy wounds and applied the sterile dressing and sling. 07/28/18 1130 <Electronically signed by Jose Vera DO> Date Jose Vera DO CC: Jose Vera DO; Speedy Boswell MD Signed CARDIOLOGY VISIT Observed: 07/22/2018 Status: F Source: [place] REPORT 11:38 AM [facility] REPOSITORY [facility] [address] [facility] [address] [place] [address] OFFICE VISIT Date of Service: 07/21/18 MR#: [id number] Acct: [id number] Name: ARISTIDES ISSA Rep #: [id number] : 1955 Provider: Divina Giles Age/Sex: 63/M Location: [facility] [place] Status: Signed [facility] HPI Details: ARISTIDES ISSA, is a 63 M who presents to the office today for a cardiovascular followup. He does have a history of coronary artery disease with bypass surgery. He does have an PARK to the LAD, free right internal mammary to the left internal mammary to the circumflex which has been occluded, ischemic cardiomyopathy with ICD, hypertension, hyperlipidemia. Pt will be undergoing rotator surgery next week. Pt has not had any chest pain/heaviness/tightness. He does not have any worsening of SOB. He does not have any palpitations. He does not have any lightheadedness/dizziness. He does not have any near syncope/syncope. He does have chronic edema of his right leg. Intake Vital Signs07/21/18 Height 6 ft 07/21/18 Weight: 320 lb 07/21/18 Body Mass Index (BMI) 43.4 07/21/18 Blood Pressure 128/72 07/21/18 Blood Pressure Location Lt brachial 07/21/18 Blood Pressure Position Sitting Intake Visit Reasons: 6 M FU Assembly Department Supervisor Required: No Accompanied by: none Is patient in pain?: No Allergies No Known Allergies Allergy (Verified 07/21/18 15:34) Medications Montelukast [Singulair] 10 mg PO DAILY 10/05/13 [History Confirmed 07/21/18] Niacin SA [Niaspan] 1,000 mg PO QHS 10/05/13 [History Confirmed 07/21/18] Escitalopram Oxalate [Lexapro] 20 mg PO DAILY 11/02/14 [History Confirmed 07/21/18] Meloxicam [Mobic] 15 mg PO DAILY 05/24/17 [History Confirmed 07/21/18] Temazepam [Restoril] 30 mg PO QHS 05/24/17 [History Confirmed 07/21/18] Ranolazine [Ranexa] 1 tab PO BID 06/08/17 [History Confirmed 07/21/18] Aspirin [Aspirin, Baby] 81 mg PO QHS 06/09/17 [History Confirmed 07/21/18] Acetaminophen [Tylenol Tablet] 650 mg PO Q6H PRN PRN tab 06/10/17 [Rx Confirmed 07/21/18] gabapentin 600 mg tablet 600 mg PO QHS tab 01/06/18 [History Confirmed 07/21/18] loratadine 10 mg tablet 10 mg PO QDAY 01/06/18 [History Confirmed 07/21/18] bupropion HCl SR 150 mg tablet,12 hr sustained-release 150 mg PO BID 01/08/18 [History Confirmed 07/21/18] pantoprazole 40 mg tablet,delayed release 40 mg PO DAILY tab 01/08/18 [History Confirmed 07/21/18] isosorbide mononitrate ER 60 mg tablet,extended release 24 hr 60 mg PO BID #180 tab 01/15/18 [Rx Confirmed 07/21/18] nitroglycerin 0.4 mg sublingual tablet 0.4 mg SUBLINGUAL Q5M PRN #25 tab 01/15/18 [Rx Confirmed 07/21/18] clopidogrel 75 mg tablet 75 mg PO DAILY #90 tab 01/29/18 [Rx Confirmed 07/21/18] potassium chloride ER 20 mEq tablet,extended release 40 meq PO QDAY #180 tab 05/20/18 [Rx Confirmed 07/21/18] ramipril 2.5 mg capsule 2.5 mg PO DAILY #90 cap 06/24/18 [Rx Confirmed 07/21/18] Furosemide [Lasix] 40 mg PO DINNER 07/11/18 [History Confirmed 07/21/18] Furosemide [Lasix] 80 mg PO DAILY 07/11/18 [History Confirmed 07/21/18] Pen G Toan/Pen G Procaine [Bicillin C-R 900-300 Syringe] 1,200,000 unit IM QMONTH 07/11/18 [History Confirmed 07/21/18] atorvastatin 40 mg tablet 40 mg PO DINNER #30 tab 07/21/18 [Rx Confirmed 07/21/18] carvedilol 25 mg tablet 25 mg PO BID #180 tab 07/21/18 [Rx Confirmed 07/21/18] PFSH Medical History Chronic systolic congestive heart failure (Chronic) Presence of stent in coronary artery (Chronic) 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) Shortness of breath (Chronic) History of tobacco abuse (Acute) Family history of CVA (Chronic) Ischemic cardiomyopathy (Chronic) Hyperlipidemia (Chronic) Hypertension (Chronic) ICD (implantable cardioverter-defibrillator) in place (Chronic 08/17/10) Family history of CVA (Acute) GERD (gastroesophageal reflux disease) (Acute) History of tobacco abuse (Acute) Lymphedema of right lower extremity (Acute) Acute lymphangitis of right lower extremity (Inactive) Atherosclerosis of coronary artery bypass graft without angina pectoris (Inactive) CAD (coronary artery disease) (Inactive) Chronic Systolic CHF - EF 45% (Inactive) Effects of radiation (Inactive) GERD (gastroesophageal reflux disease) (Inactive) Gastroenteritis (Inactive) History of 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 (Inactive) 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) Lymphedema of Right Leg (Inactive) Lymphedema of right lower extremity (Inactive) Morbid obesity with BMI of 40.0-44.9, adult (Inactive) SIRS (systemic inflammatory response syndrome) (Inactive) Surgical History Postsurgical aortocoronary bypass status (Chronic 06/01/05) History of percutaneous transluminal coronary angioplasty (Inactive) Family History Mother CAD (coronary artery disease) Father CVA (cerebral vascular accident) Myocardial infarction Brother CAD (coronary artery disease) Hx of CABG Brother CAD (coronary artery disease) Hx of CABG Social History Smoking Status: Former smoker ROS Const Const: Negative for fatigue, weakness, weight gain, weight loss, frequent falls or excessive sweating Eyes Eyes: Negative for change in vision, blurry vision or transient loss of vision ENT ENT: Negative for dizziness or balance problems Cardio Chest Pain: No Edema: None Muscle aches with walking: None Resp Respiratory: Positive for SOB with activity (occasional) and SOB at rest (occasional) GI GI: Negative vomiting or vomiting blood/hematemesis : Negative for hematuria Musc Musc: Negative for balance problems Skin Skin: Negative non-healing lesions or rash Neuro Neuro: Negative for weakness, frequent falls, blurry vision or dizziness Gavin Hematologic/Lymphatic: Negative for easy bleeding Endo Endo: Negative for fatigue or excessive sweating Psych Psych: Negative for anxiety or depression Allergy Allergy/Immunology: Negative for rash Cardiology Exam Const Appearance: cooperative, healthy appearing, comfortable, no acute distress, well developed and well groomed Nutritional Appearance: obese Orientation: alert, awake and oriented x3 Head Head: normal to inspection, normocephalic and atraumatic Nose: external nose normal Face and Sinus: face symmetric Mouth: oral mucosae normal Teeth and gingiva: fair dentition Eyes General: appearance normal, both eyes and all related structures Eyelids: eyelids normal Conjunctivae: conjunctivae normal Pupils: PERRL EOM: EOM intact bilaterally Neck Neck: normal visual inspection and full ROM Carotids: normal carotid upstroke Chest Chest inspection: normal inspection of the chest and symmetric chest movement Auscultation: Bilateral: Clear to Auscultation Cardio Palpation: normal PMI Rate: regular rate Rhythm: regular rhythm Heart sounds: S1 normal and S2 normal GI GI: obese Neuro General: alert, awake and oriented x3 Skin Skin: no rashes or lesions noted Extremities Lower Extremity Edema: +3: Right Psych Psychological: normal affect Supplemental Info Heart catheterization in 2013 demonstrated a patent PARK which is essentially nonfunctional, 30% ostial left main stenosis, LAD with proximal in-stent 50% stenosis, dominant left circumflex with no stenosis, nondominant RCA with no stenosis. Reduced ejection fraction of 25-30% with akinetic posterior wall. In December 2013 ejection fraction was noted to be 30%. He did have a stent to his LAD for in-stent stenosis. Echocardiogram in 2015 demonstrates Mildly dilated left ventricle. Moderate segmental systolic dysfunction (see wall motion). The estimated ejection fraction is 35 %. Trivial mitral valve insufficiency. Trivial tricuspid valve insufficiency. Mild focal aortic valve thickening. Trivial pulmonic valve insufficiency. Unable to estimate RV systolic pressure. ICD or pacer leads identified within the right atrium ICD or pacer leads identified within the right ventricle Stress test in June 2016 demonstrated previous myocardial injury/infarction involving areas of the mid to distal anterior, anterior apical, septal, apical, inferior/inferior apical and lateral apical segments with no myocardial perfusion changes. Assessment AND Plan 1. Atherosclerosis of hoh coronary artery of hoh heart without angina pectoris I25.10 CABG x2- PARK to LAD, SARIAH to OM 06/01/05; PTCA/stent to prox LAD 02/02/05; PTCA/stent instent restenosis of prox LAD 10/15/13 Plan Patient does not have any symptoms of angina. He will continue with current aggressive medical management and risk factor modification. 2. Chronic systolic congestive heart failure I50.22 Plan Patient does not have any symptoms of congestive heart failure. We will continue to monitor by history, exam and echocardiograms as deemed appropriate. 3. Automatic implantable cardioverter-defibrillator in situ Z95.810 Plan ICD is functioning appropriately. We will continue to monitor with routine scheduled ICD interrogations. Patient has not had any discharges from their device. Orders Orders: 4. Essential hypertension I10 Plan Blood pressure is adequately controlled. Will not make any adjustments. 5. Pure hypercholesterolemia E78.00; E78.0 Plan Recent lipid profile demonstrates total cholesterol of 147, HDL 42, LDL 77. Will not make any adjustments. Plan Detail Other Orders Orders: Other Medications New: Refilled: Additional Comments Patient will be undergoing rotator cuff surgery in the near future. It is okay for patient to hold his Plavix prior to his surgery. He will resume as soon as possible after. Patient does have a known decreased ejection fraction, recommend close monitoring of fluids during his surgery. Thank you for allowing us to participate in the patients plan of care, if you have any questions please do not hesitate to call. This note was generated using a voice recognition system and there may be incorrect words, spelling or punctuation that were not noted when reviewing the office note prior to saving. Follow Up 6 Months (MMM) 1 Year (PFM) Coding Level of Care Code Off vis,est,level 3 Diagnoses Atherosclerosis of hoh coronary artery of hoh heart without angina pectoris I25.10 [place] vs. transplanted heart: hoh heart Chronic systolic congestive heart failure I50.22 Automatic implantable cardioverter-defibrillator in situ Z95.810 Essential hypertension I10 Hypertension type: essential hypertension Pure hypercholesterolemia E78.00; E78.0 Hyperlipidemia type: pure hypercholesterolemia Coding Level of Care Code Off vis,est,level 3 Diagnoses Atherosclerosis of hoh coronary artery of hoh heart without angina pectoris I25.10 [place] vs. transplanted heart: hoh heart Chronic systolic congestive heart failure I50.22 Automatic implantable cardioverter-defibrillator in situ Z95.810 Essential hypertension I10 Hypertension type: essential hypertension Pure hypercholesterolemia E78.00; E78.0 Hyperlipidemia type: pure hypercholesterolemia 07/22/18 1138 <Electronically signed by Divina BRENNAN> Date Divina BRENNAN Cosigner Signature: Date (if applicable) CC: Speedy Boswell MD 12 LEAD EKG PERFORMED Observed: 07/21/2018 Status: F Source: [place] BY [place] 3:35 PM [facility] REPOSITORY [facility] [address] [place] [address] 12 Lead EKG performed by ARLETH 07/21/18 1534 MR#: [id number] Acct: [id number] Name: ARISTIDES ISSA Rep #: [id number] : 1955 63 From: Divina BRENNAN Attending Dr: Divina Giles Status: DEP AMB Ordering Dr: Divina Giles Date: 07/21/18 Location: [facility] Sex: M C Admitted: BMS/12 Lead EKG performed by [facility] ECG Report Interpretation Sinus Rhythm Left axis deviationLAFBOld anterior infarct. ABNORMAL Electronically signed on 07/21/2018 at 16:54 by Speedy Mtz Software Version [id number] 07/21/18 1659 Date Divina BRENNAN CC: Speedy Boswell MD Date Dictated: 07/21/18 1534 Date Transcribed: 07/21/181533 Academic Support Coordinator: BECKY Signed CBC-COMPLETE BLOOD CNT Collected: 07/21/2018 Status: F Source: [place] NO DIFF 2:45 PM [facility] REPOSITORY TYPE CODE TESTS RESULT OUT OF RANGE REFERENCE UNITS LAB L100.1000 4.4-11.0 K/mm3 Normal WBC 5.3 LAB L100.1200 4.6-6.2 M/mm3 Normal RBC 4.78 LAB L100.1300 13.0-16.5 g/dl Normal HGB 14.5 LAB L100.1400 40-54 % Normal HCT 44.2 LAB L100.1500 80-94 fL Normal MCV 92.5 LAB L100.1600 27.0-32.0 pg Normal MCH 30.3 LAB L100.1700 32-36 g/gl Normal MCHC 32.8 LAB L100.1810 11.6-14.6 % Normal RDW CV 13.2 LAB L100.1820 35.1-43.9 fl High RDW SD 44.4 LAB L100.1900 150-450 K/mm3 Normal PLT 189 LAB L100.2000 6.2-12.0 fl Normal MPV 9.5 Performed By: #### L100.0500 #### [facility] [place], [address] BASIC METABOLIC Collected: 07/21/2018 Status: F Source: [place] PROFILE (BMP) 2:45 PM [facility] REPOSITORY TYPE CODE TESTS RESULT OUT OF RANGE REFERENCE UNITS LAB L501.0100 74-106 mg/dL High GLU 111 Result Comment: Fasting Glucose result from 100 to 125 mg/dL suggests IMPAIRED HOMEOSTASIS per A.D.A. criteria. Please note revised GLUCOSE reference range effective 2018. LAB L501.1000 7-18 mg/dL Normal BUN 14 LAB L501.1100 0.70-1.30 mg/dL Normal CREAT,SERUM 1.24 Result Comment: The validity of the calculated GFR AND GFRAA in patients over 70 years has not been determined. Clinical correlation is essential. LAB L501.1110 >60 mL/min Normal EST GFR 63 Result Comment: Non- GFR Calc LAB L501.1115 >60 mL/min Normal EST GFR - AA 76 Result Comment: GFR Calc LAB L501.1300 10-20 RATIO Normal BUN/CRE 11.3 LAB L501.2200 8.5-10.1 mg/dL CA Normal 9.2 LAB L501.5300 136-145 mmol/L NA Normal 143 LAB L501.5600 3.5-5.1 mmol/L K Normal 4.0 LAB L501.5900 98-107 mmol/L High CL 108 LAB L501.6100 21.0-32.0 mmol/L Normal CO2 23.0 LAB L501.6200 5-15 Normal GAP 12 Performed By: #### L500.2500 #### [facility] [address] [place], [place] [address] [facility] [place], [address] US EXTREMITY Observed: 06/17/2018 Status: F Source: [place] NON-VASCULAR RIGHT 9:00 AM [facility] US RIGHT SHOULDER, ATTENTION ROTATOR CUFF CLINICAL STATEMENT: CONTUSION OF RIGHT SHOULDER , shoulder pain and limited range of mobility, history of trauma, evaluate rotator cuff COMPARISON: None FINDINGS: Evaluation of the long biceps tendon shows normal tendon thickness and location in the bicipital groove. No surrounding fluid collections are seen. The subscapularis, supraspinatus and infraspinatus tendons show normal thickness without any obvious partial or full-thickness tear. No significant joint effusion is noted and there is no fluid in the s ubacromial or subdeltoid bursa. IMPRESSION: No partial or full-thickness high-grade rotator cuff tear is seen on this study. If internal derangement is suspected and the patient is unable to have MRI, CT arthrography is an option. Interpreted By: John Spears MD Preliminary Report By: John Spears MD Electronically Signed By: John Spears MD Dictated Date: 06/17/2018 10:08:53 AM Prelim Date: 06/17/2018 10:08:53 AM Sign Date: 06/17/2018 10:10:12 AM EMERGENCY DEPARTMENT Observed: 06/09/2018 Status: F Source: [place] SUMMARY 2:21 AM [facility] REPOSITORY [facility] Medical Records Department [address] [place] [address] Emergency Department Summary 06/08/182 MR#: [id number] Acct: [id number] Name: ARISTIDES ISSA Rep #: [id number] : 1955 63 From: Diaz Cortez MD PCP: Speedy Boswell MD Status: DEP ER - ER Visit Summary Date of Service: 06/08/18 Chief Complaint: Esophageal impaction History of Present Illness: The patient is a [address] Speedy Akhtar, Dr. George, Dr. Mtz. He reports that he has a history of partial esophageal impactions and had endoscopy Dr. George 1-2 years ago. States that since that time has been careful in chewing his food. This evening he was eating steak and felt as though it got stuck. He tried multiple times to bring this back up into swallow ice tea without relief. States that it feels like it is caught in his throat. Physical Examination: Vitals: Stable. Afebrile. General: Well-nourished and well-developed. Head: Normocephalic atraumatic. Neck: Supple, no lymphadenopathy. No JVD. Nontender. Cardiovascular: Regular rate and rhythm. No murmurs. Respiratory: No respiratory distress. Clear to auscultation bilaterally. Abdominal: Soft, nontender, nondistended, normal bowel sounds. No guarding, rebound, or peritoneal signs. Back: Nontender. Extremities: Nontender, 3+ pitting edema of his right lower extremity only. Skin: Normal color, no rash. Neurologic: Alert and oriented 3. Cranial nerves II through XII are intact. Normal strength and sensation. Psych: Normal affect. Test Results: CBC is marked for hematocrit of 39.6, segment neutrophils 73, lymphs at 16. Chem-7 more for chloride of 109. Emergency Department Course and Treatment: Patient had an IV placed. He was given glucagon IV. He was able to drink a can of cola without any difficulty. He did complain of nausea. I suspect this is secondary to glucagon. Is given a dose of Zofran IV and is resting comfortably. Treatment Plan: Patient is having no difficulty swallowing at this time. He will be discharged instructions follow-up Dr. George next 3-5 days for further evaluation. Return to the emergency department for any worsening symptoms. Disposition: To home in improved and stable condition. Impression: 1. Esophageal impaction, resolved. This note was generated with Printland dictation software. It may contain incorrect words, spelling, and punctuation that were not noted in review of the chart prior to signing ED Disposition - Plan for ED Patient: Disposition: Home or Assisted Living Chief Complaint: Foreign Body Instructions: ED Foreign Body Esophageal Rslv Referrals: Cary George MD [STAFF PHYSICIAN] - 3-5 Days What to do if you have Problems For any increased pain, shortness of breath, bleeding, nausea or vomiting, chest pain, or any unexpected problems, contact your Primary Care Provider. Call [facility] ([phone]) or report to the closest Emergency Room. Call 911 if necessary. 06/09/18 0221 <Electronically signed by Diaz Cortez MD> Date Diaz Cortez MD Cosigner Signature (If Indicated): Date CC: Speedy Boswell MD CBC W/DIFF, AUTOMATED Collected: 06/08/2018 Status: F Source: [place] 9:00 PM [facility] REPOSITORY TYPE CODE TESTS RESULT OUT OF RANGE REFERENCE UNITS LAB L100.1000 4.4-11.0 K/mm3 Normal WBC 7.4 LAB L100.1200 4.6-6.2 M/mm3 Low RBC 4.34 LAB L100.1300 13.0-16.5 g/dl Normal HGB 13.6 LAB L100.1400 40-54 % Low HCT 39.6 LAB L100.1500 80-94 fL Normal MCV 91.2 LAB L100.1600 27.0-32.0 pg Normal MCH 31.3 LAB L100.1700 32-36 g/gl Normal MCHC 34.3 LAB L100.1810 11.6-14.6 % Normal RDW CV 12.8 LAB L100.1820 35.1-43.9 fl Normal RDW SD 41.7 LAB L100.1900 150-450 K/mm3 Normal PLT 186 LAB L100.2000 6.2-12.0 fl Normal MPV 9.3 LAB L100.2100 47-70 % High NEUT% 72.5 LAB L100.2200 19-41 % Low LY% 15.8 LAB L100.2300 0-10 % Normal MONO% 8.2 LAB L100.2400 0-5 % Normal EO% 2.7 LAB L100.2500 0-1 % Normal BASO% 0.4 LAB L100.2550 0.0-0.9 % Normal IM GRAN % 0.400 Result Comment: IG% - Immature Granulocytes (promyelocytes, myelocytes and metamyelocytes) > 1% indicates that a LEFT SHIFT is Present. LAB L100.2620 2.0-7.7 X10 3/uL Normal Absolute Neut 5.4 LAB L100.2720 0.83-4.51 X10 3/ul Normal Absolute Lymph 1.17 Performed By: #### L100.0100 #### [facility] [address] [place], [address] BASIC METABOLIC Collected: 06/08/2018 Status: F Source: [place] PROFILE (BMP) 9:00 PM [facility] REPOSITORY TYPE CODE TESTS RESULT OUT OF RANGE REFERENCE UNITS LAB L501.0100 74-106 mg/dL Normal GLU 95 Result Comment: Please note revised GLUCOSE reference range effective 2018. LAB L501.1000 7-18 mg/dL Normal BUN 14 LAB L501.1100 0.70-1.30 mg/dL Normal CREAT,SERUM 1.17 Result Comment: The validity of the calculated GFR AND GFRAA in patients over 70 years has not been determined. Clinical correlation is essential. LAB L501.1110 >60 mL/min Normal EST GFR 67 Result Comment: Non- GFR Calc LAB L501.1115 >60 mL/min Normal EST GFR - AA 81 Result Comment: GFR Calc LAB L501.1255 ml/min Normal Estimated CRCL 70.93 LAB L501.1300 10-20 RATIO Normal BUN/CRE 12.0 LAB L501.2200 8.5-10 mg/dL Normal .1 CA 8.7 LAB L501.5300 136-14 mmol/L Normal 5 NA 140 LAB L501.5600 3.5-5. mmol/L Normal 1 K 3.7 LAB L501.5900 98-107 mmol/L High CL 109 LAB L501.6100 21.0-3 mmol/L Normal 2.0 CO2 25.0 LAB L501.6200 5-15 Normal GAP 6 Performed By: #### L500.2500 #### [facility] [address] [place], [address] PACEMAKER CHECK Observed: 06/03/2018 Status: F Source: [place] 9:34 AM [facility] REPOSITORY [facility] [address] [place] [address] Pacemaker Check Date of Service: 05/26/18 1716 MR#: [id number] Acct: [id number] Name: ARISTIDES ISSA Rep #: [id number] : 1955 From: Bethany Deng Age/Sex: 63/M Location: [facility] Status: Signed Comments Summary Comments: Dual Chamber ICD Evaluation: See attached scanned as400 programmer analyst report. Interrogation shows numerous MS episodes, <1% total time and no VT/VF episodes since last check 12/20/17. Left pectoral pocket/incision w/o s/s of infection or erosion. Pt offers no cardiac complaints. Presenting rhythm shows NSR @ 72 bpm. SPEED OPERATOR=<1%. Estimated battery life 2.7 to 3.2 yrs. Lead impedances, sensing and pace/sense thresholds remain stable. No parameter changes made. Counters cleared. Next f/u appt scheduled for in 3 mos. Device Device Date Interviewed: 05/26/18 Follow-up Location: in office Interview Reason: routine follow up Sprayer Hand: [employer] Name: Kym BLACK Model: [id number] Serial #: [id number] Implant Date: 08/17/10 Year(s): 7 Implant Physician: Dr. Christian Sandoval Patient Characteristics Patient Substrate: Ischemic cardiomyopathy Ejection fraction %: 35 to 39 (12/06/2015) By: Echo Underlying rhythm: Sinus rhythm Pacemaker Dependent: No Device Characteristics Device: Dual Chamber Type: Implantable defibrillator Remote Follow-Up: No Device Physical Exam Yes Incision well healed Leads Lead #1 Sprayer Hand Lead 1: [employer] [place] Model Lead 1: 1888TC/52 Serial# Lead 1: [id number] Date Implanted Lead 1: 08/17/10 Position Lead 1: RA Lead #2 Sprayer Hand Lead 2: [employer] [place] Model Lead 2: 81809/60 Serial# Lead 2: [id number] Date Implanted Lead 2: 08/17/10 Position Lead 2: RV Diagnostics Pacing % RA Pacin % RV Pacin Mode Switching Total # Episodes: 3,562 % Mode switched: 1 Arrhythmias VF Episodes: 0 Fast VT Episodes: 0 Slow VT Episodes: 0 Non-Sust Episodes: 0 Measurements Battery Voltage (V): 2.59 Predicted Remaining Longevity (months or years): 2.7 to 3.2 years RA Measurements Signal Amplitude (mV): 5.0 Impedance (Ohms): 450 Threshold Voltage: 0.75 @ PW(ms): 0.5 RV Measurements Signal Amplitude (mV): 10.7 Impedance (Ohms): 440 Threshold Voltage: 0.5 @ PW(ms): 0.5 Tachy Settings VF Therapies VF Therapy Status On On On On On On Energy 15 36 36 36 36 36 Pathway ATP: During charging off FVT Therapies FVT Therapy Status On On On On On On VT Therapies FVT Therapy Status Off Off Off Off Off Off Comments: Mulugeta Settings Mulugeta Settings Pacemaker Mode DDD Lower Rate Limit (bpm) 60 Hysteresis Rate (bpm) Max Track Rate (bpm) 110 Max Sensor Rate (bpm) Max AV Delay (msec) 275 Max PV Delay (msec) Max PVARP (msec) Output/Sensing V/PW (ms) 2.5/0.5 2.5/0.5 Sensitivity RA RV LV Comments: Billing Codes ICD Device Billing: ICD Dev Prog Eval, Dual Assessment AND Plan Problems 1. Automatic implantable cardioverter-defibrillator in situ Z95.810 2. Chronic systolic congestive heart failure I50.22 3. Atherosclerosis of hoh coronary artery of hoh heart without angina pectoris I25.10 CABG x2- PARK to LAD, SARIAH to OM 06/01/05; PTCA/stent to prox LAD 02/02/05; PTCA/stent instent restenosis of prox LAD 10/15/13 4. Ischemic cardiomyopathy I25.5 06/02/182001 <Electronically signed by Bethany Deng > Date Bethany Deng 06/03/18 0934<Electronically signed by Speedy Mtz MD> Cosigner Signature: Date (if applicable) Speedy Mtz MD CC: DISCHARGE INSTRUCTION Observed: 04/26/2018 Status: F Source: [place] 11:26 AM [facility] REPOSITORY [facility] Medical Records Department [address] [place] [address] Discharge Instruction 04/26/18 1124 MR#: [id number] Acct: [id number] Name: ARISTIDES ISSA Rep #: [id number] : 1955 63 From: Noah Harrison DO PCP: Speedy Boswell MD Status: REG ER ED Disposition - Plan for ED Patient: Chief Complaint: Upper Extremity Injury Instructions: ED Sprain Shoulder Prescriptions: Hydrocodone/Acetaminophen [Ponder 5-325 Tablet] 1 - 2 ea PO 4X/DAY PRN PRN 3 Days #12 tab PRN Reason: Pain Referrals: Speedy Boswell MD [Primary Care Provider] - Herminio Biswas MD [STAFF PHYSICIAN] - 3-5 Days What to do if you have Problems For any increased pain, shortness of breath, bleeding, nausea or vomiting, chest pain, or any unexpected problems, contact your Primary Care Provider. Call [facility] ([phone]) or report to the closest Emergency Room. Call 911 if necessary. 04/26/18 1126 <Electronically signed by Noah Harrison DO> Date Noah Harrison DO Cosigner Signature (If Indicated): Date CC: Speedy Boswell MD EMERGENCY DEPARTMENT Observed: 04/26/2018 Status: F Source: [place] SUMMARY 11:23 AM [facility] REPOSITORY [facility] Medical Records Department [address] [facility] [place] [address] Emergency Department Summary 04/26/18 1121 MR#: [id number] Acct: [id number] Name: ARISTIDES ISSA Rep #: [id number] : 1955 63 From: Noah Harrison DO PCP: Speedy Boswell MD Status: PRE ER - ER Visit Summary Date of Service: 04/26/18 Chief Complaint: [Injury right shoulder] History of Present Illness: The patient is a 63 M [presents the emergency department complaint of injury to his right shoulder that occurred yesterday. Patient states that he was hot yesterday went to step outside and fell injuring his right shoulder. Patient was able to catch himself and initially did not think much of the injury. Patient subsequently went and sat in a recliner when he try to push out of the recliner with his arms to get up he had a severe pain in the right shoulder radiating down his arm. Patient has pain with certain motions of the arm. Patient denies any other injuries.] Physical Examination: [HEENT-PERRLA, EOMI. Cranial nerves II through XII grossly intact. TMs clear. Mucous membranes moist. No adenopathy. Cardiovascular-regular rate and rhythm without murmur or ectopy Lungs-clear to auscultation, chest wall stable without crepitus or subcu emphysema Abdomen-normoactive bowel sounds, soft, nontender, no rebound or rigidity, no peritoneal signs. Extremities-intact 4, normal range of motion, normal pulses, atraumatic]. Patient has some mild discomfort about the glenohumeral joint. Patient has pain with abduction at the glenohumeral joint and has difficulty resisting abduction. He is neurovascular intact distally. Deep tendon reflexes are plus 2 out of 4 bilaterally at the bicep, tricep, and brachioradialis. Test Results: [X-rays of the right shoulder obtained showed degenerative changes at the acromioclavicular joint but no fractures or dislocations.] Emergency Department Course and Treatment: [Patient was given a sling] Treatment Plan: [Patient given a prescription for Ponder for pain. Patient will be referred to orthopedics on-call.] Disposition: [Discharged home in stable condition] Impression: [Right shoulder strain possible internal derangement] This note was generated with Printland dictation software. It may contain incorrect words, spelling, and punctuation that were not noted in review of the chart prior to signing ED Disposition - Plan for ED Patient: Chief Complaint: Upper Extremity Injury Referrals: Speedy Boswell MD [Primary Care Provider] - What to do if you have Problems For any increased pain, shortness of breath, bleeding, nausea or vomiting, chest pain, or any unexpected problems, contact your Primary Care Provider. Call [facility] ([phone]) or report to the closest Emergency Room. Call 911 if necessary. 04/26/18 1123 <Electronically signed by Noah Harrison DO> Date Noah Harrison DO Cosigner Signature (If Indicated): Date CC: Speedy Boswell MD SHOULDER MIN 2 VIEWS Observed: 04/26/2018 Status: F Source: [place] 10:51 AM [facility] REPOSITORY [facility] Imaging Services [address] [place] [address] Shoulder min 2 Views MR#: [id number] Acct: [id number] Name: ARISTIDES ISSA Rep #: [id number] : 1955 M 63 From: Reginald Stack MD PCP: Speedy Boswell MD Status: PRE ER Study: Shoulder min 2 Views Date of Exam: 04/26/18 Exam# [id number] Ordering Dr: Noah Harrison DO STUDY: X-RAY - RIGHT SHOULDER REASON FOR EXAM: Male, 63 years old. Patient fell yesterday. TECHNIQUE: For view(s) of the shoulder. COMPARISON: None. FINDINGS: Normal glenohumeral articulation. There is degenerative arthrosis of the acromioclavicular joint without inferior osseous spur formation. Normal acromion. Normal humeral head and visualized proximal humerus. The soft tissue structures are unremarkable. There is no demonstrated fracture. Normal visualized pulmonary apex. RAD/Shoulder min 2 Views IMPRESSION: Degenerative changes in the acromioclavicular joint. No demonstrated acute fracture or dislocation. Electronically Signed: Reginald Stack MD at 11:14 EDT Tel , Service support , CC: Speedy Boswell MD; Noah Harrison DO Academic Support Coordinator: Signed EMERGENCY DEPARTMENT Observed: 04/06/2018 Status: F Source: [place] SUMMARY 4:38 PM [facility] REPOSITORY [facility] Medical Records Department [address] [place] [address] Emergency Department Summary 04/01/181944 MR#: [id number] Acct: [id number] Name: ARISTIDES ISSA Rep #: [id number] : 1955 62 From: Kenneth Quezada PCP: Speedy Boswell MD Status: DIS IN - ER Visit Summary Date of Service: 04/01/18 Chief Complaint: Right lower extremity cellulitis History of Present Illness: The patient is a 62 M sudden redness right foot up the leg since this morning. Sweats with no fevers. 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 Multiple infections in the past, however last time was 2 years ago. States normally needs IV antibiotics till the redness clears. Denies any injuries. No allergies. Physical Examination: General: Alert and oriented 3, no acute distress HEENT: Normocephalic, atraumatic. Moist mucosa membranes Neck: supple, nontender. Cardiovascular: Regular rate and rhythm, no murmurs Respiratory: Normal breath sounds, symmetric, no distress Abdomen: Soft, nontender, nondistended Extremities: Nontender, no edema, pulses intact 4. Right lower extremity: Significant lymphedema right lower extremity. There is erythema of the whole foot and redness up the distal leg. There is no injuries distal to the redness. DPs are intact. No calf swelling. No medial thigh swelling. Neuro: no focal neurological deficits. Test Results: [] Emergency Department Course and Treatment: Sepsis protocol initiated. Patient nontoxic. Patient start IV Zosyn and vancomycin. I did discuss with hospitalist for planned admission. Treatment Plan: [] Disposition: Admission Impression: 1. Right lower extremity cellulitis 2. Chronic lymphedema right lower extremity This note was generated with Printland dictation software. It may contain incorrect words, spelling, and punctuation that were not noted in review of the chart prior to signing ED Disposition - Plan for ED Patient: Disposition: Acute Care Hospital [facility] Chief Complaint: Cellulitis Diagnosis: Cellulitis of right lower extremity What to do if you have Problems For any increased pain, shortness of breath, bleeding, nausea or vomiting, chest pain, or any unexpected problems, contact your Primary Care Provider. Call [facility] ([phone]) or report to the closest Emergency Room. Call 911 if necessary. 04/06/18 3760 <Electronically signed by Kenneth Quezada> Date Kenneth Quezada Cosigner Signature (If Indicated): Date CC: Speedy Boswell MD DISCHARGE SUMMARY Observed: 04/04/2018 Status: F Source: [place] 10:57 AM [facility] [place] REPOSITORY [facility] Medical Records Department [address] [place] [address] Discharge Summary 04/04/18 1054 MR#: [id number] Acct: [id number] Name: ARISTIDES ISSA Rep #: [id number] : 1955 62 From: Paco Butler DO PCP: Speedy Boswell MD Status: ADM IN Y Location: [place] [id number] Discharge Date and Diagnosis - Problem List Patient Problems: Active and Suspected Problems (Last Reviewed 01/08/18 @ 14:35 by Divina Ahumada) Cellulitis of right lower extremity (Acute) Date of Admission: 04/01/18 Date of Discharge: 04/04/18 - Primary Discharge Diagnosis Active and Suspected Problems (Last Reviewed 01/08/18 @ 14:35 by Divina Ahumada) Cellulitis of right lower extremity (Acute) - Secondary Discharge Diagnosis Chronic Problems (Last Reviewed 01/08/18 @ 14:35 by Divina Ahumada) Lymphedema of right lower extremity (Chronic) Automatic implantable cardioverter-defibrillator in situ (Chronic) Chronic systolic congestive heart failure (Chronic) Presence of stent in coronary artery (Chronic) PTCA/stent to prox LAD 02/02/05; PTCA/stent instent restenosis of prox LAD 10/15/13 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) CABG x2- PARK to LAD, SARIAH to OM 06/01/05; PTCA/stent to prox LAD 02/02/05; PTCA/stent instent restenosis of prox LAD 10/15/13 Shortness of breath (Chronic) Postsurgical aortocoronary bypass status (Chronic 06/01/05) CABG x2- PARK to LAD, SARIAH to OM 06/01/05 Family history of CVA (Chronic) Ischemic cardiomyopathy (Chronic) Hyperlipidemia (Chronic) Hypertension (Chronic) ICD (implantable cardioverter-defibrillator) in place (Chronic 08/17/10) ICD Implant 2009 Hospital Course and Treatment Consultations 04/01/18 23:23 Consult: Onc/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 Seen @ wound center [facility] Operations: None Procedures: - - Duplex Right leg. 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 Followed by radiation treatment. Patient has chronic lymphedema of the lower extremity. Patient has also had intermittent cellulitis of that leg. Patient was not septic but was started on IV antibiotics. Patient was put on ceftezole and and did well. Patient expressed apprehension about being put on to oral antibiotics given his history of coronary him being put on to prematurely and developed worsening cellulitis. Patient was monitored and actually did improve over the past couple days. Patient was seen in consultation by Dr. Vilchis of infectious disease and patient will be discharged with Keflex 500 twice daily for 1 week. Patient has been receiving monthly shots of penicillin through his primary care doctor. I advised patient to follow-up with infectious disease to see if those would still be indicated or not. Patient is due for his next shot next week but I told the patient to hold off on that as he is currently on antibiotics. [] Discharge Diet: Low fat/ Low Cholesterol Discharge Activity: Return to Normal Activity Call your doctor if you observe: Fever of 101 or Higher, - - worsening swelling and erythema of right leg. Home Medications: Medications to take at Discharge Atorvastatin Calcium [Lipitor] 40 mg PO DINNER 10/05/13 Montelukast [Singulair] 10 mg PO DAILY 10/05/13 Niacin SA [Niaspan] 1,000 mg PO QHS 10/05/13 Escitalopram Oxalate [Lexapro] 20 mg PO DAILY 11/02/14 Furosemide [Lasix] 40 mg PO DINNER 05/24/17 Furosemide [Lasix] 80 mg PO BREAKFAST 05/24/17 Meloxicam [Mobic] 15 mg PO DAILY 05/24/17 Temazepam [Restoril] 30 mg PO QHS 05/24/17 Ranolazine [Ranexa] 1 tab PO BID 06/08/17 Aspirin [Aspirin, Baby] 81 mg PO QHS 06/09/17 Acetaminophen [Tylenol Tablet] 650 mg PO Q6H PRN PRN tab 06/10/17 gabapentin 600 mg tablet 600 mg PO .Q HS tab 01/06/18 loratadine 10 mg tablet 10 mg PO QDAY 01/06/18 bupropion HCl SR 150 mg tablet,12 hr sustained-release 150 mg PO BID 01/08/18 pantoprazole 40 mg tablet,delayed release 40 mg PO DAILY tab 01/08/18 potassium chloride ER 20 mEq tablet,extended release 40 meq PO QDAY tab 01/08/18 ramipril 5 mg capsule 2.5 mg PO DAILY cap 01/08/18 isosorbide mononitrate ER 60 mg tablet,extended release 24 hr 60 mg PO BID #180 tab 01/15/18 nitroglycerin 0.4 mg sublingual tablet 0.4 mg SUBLINGUAL Q5M PRN #25 tab 01/15/18 clopidogrel 75 mg tablet 75 mg PO DAILY #90 tab 01/29/18 carvedilol 25 mg tablet 25 mg PO BID #180 tab 03/10/18 Cephalexin [Keflex] 500 mg PO Q8 #21 cap 04/04/18 Following Prescrptions Were Given to Patient: Cephalexin [Keflex] 500 mg PO Q8 #21 cap Primary Care Physician: Speedy Boswell MD [Primary Care Provider] - Within 2 Weeks Please Follow Up With: Rick Vilchis MD When: PRN Disposition: Home Minutes spent on discharge:: 32 Patient Condition:: Good Medical Necessity - Tobacco Use Smoking Status: Former smoker Meaningful Use Info Meaningful Use Diagnoses (Choose all that apply): None applicable Code Visit Inpatient E AND M: 81918 Disch Hosp 04/04/18 1057 <Electronically signed by Paco Butler DO> Date Paco Osheaigner Signature (if applicable): Date CC: Paco Butler DO; Speedy Boswell MD Signed DISCHARGE INSTRUCTION Observed: 04/04/2018 Status: F Source: [place] 10:54 AM [facility] [place] REPOSITORY [facility] Medical Records Department [address] [place] [address] Instructions for Home/Discharge Instructions 04/04/18 1052 MR#: [id number] Acct: [id number] Name: ARISTIDES ISSA Rep #: [id number] : 1955 62 From: Paco Butler DO PCP: Speedy Boswell MD Status: ADM IN - Discharge Diagnoses Current Active Problems: Current Active and Chronic Problems (Last Reviewed 01/08/18 @ 14:35 by Divina Ahumada) Lymphedema of right lower extremity (Chronic) Cellulitis of right lower extremity (Acute) You will use the following diet at home:: Cardiac Your food should be the consistency of: Regular Your liquids should be the consistency of: Regular/Thin Discharge Activity: Return to Normal Activity Call your doctor if you observe: Fever of 101 or Higher, - - worsening swelling and erythema of right leg. Allergies/Adverse Reactions: Allergies No Known Allergies Allergy (Verified 04/01/18 19:17) Medications to take at Discharge Atorvastatin Calcium [Lipitor] 40 mg PO DINNER 10/05/13 Montelukast [Singulair] 10 mg PO DAILY 10/05/13 Niacin SA [Niaspan] 1,000 mg PO QHS 10/05/13 Escitalopram Oxalate [Lexapro] 20 mg PO DAILY 11/02/14 Furosemide [Lasix] 40 mg PO DINNER 05/24/17 Furosemide [Lasix] 80 mg PO BREAKFAST 05/24/17 Meloxicam [Mobic] 15 mg PO DAILY 05/24/17 Temazepam [Restoril] 30 mg PO QHS 05/24/17 Ranolazine [Ranexa] 1 tab PO BID 06/08/17 Aspirin [Aspirin, Baby] 81 mg PO QHS 06/09/17 Acetaminophen [Tylenol Tablet] 650 mg PO Q6H PRN PRN tab 06/10/17 gabapentin 600 mg tablet 600 mg PO .Q HS tab 01/06/18 loratadine 10 mg tablet 10 mg PO QDAY 01/06/18 bupropion HCl SR 150 mg tablet,12 hr sustained-release 150 mg PO BID 01/08/18 pantoprazole 40 mg tablet,delayed release 40 mg PO DAILY tab 01/08/18 potassium chloride ER 20 mEq tablet,extended release 40 meq PO QDAY tab 01/08/18 ramipril 5 mg capsule 2.5 mg PO DAILY cap 01/08/18 isosorbide mononitrate ER 60 mg tablet,extended release 24 hr 60 mg PO BID #180 tab 01/15/18 nitroglycerin 0.4 mg sublingual tablet 0.4 mg SUBLINGUAL Q5M PRN #25 tab 01/15/18 clopidogrel 75 mg tablet 75 mg PO DAILY #90 tab 01/29/18 carvedilol 25 mg tablet 25 mg PO BID #180 tab 03/10/18 Cephalexin [Keflex] 500 mg PO Q8 #21 cap 04/04/18 The following prescriptions were given: Cephalexin [Keflex] 500 mg PO Q8 #21 cap Primary Care Physician: Speedy Boswell MD [Primary Care Provider] - Within 2 Weeks Please Follow Up With: Rick Vilchis MD When: PRN Proposed Discharge Date: 04/04/18 04/04/18 1054 <Electronically signed by Paco Butler DO> Date Paco Butler DO CC: Speedy Boswell MD; Rick Vilchis MD BEDSIDE GLUCOSE Collected: 04/04/2018 Status: F Source: [place] 6:50 AM [facility] [place] REPOSITORY TYPE CODE TESTS RESULT OUT OF RANGE REFERENCE UNITS LAB L501.080 70-110 mg/dL Normal BEDSIDE GLU 102 Result Comment: MANAGEMENT OF PATIENT CARE PER NURSING PROTOCOL Performed By: #### L501.080 #### [facility] Laboratory Point of Care [address] [place], [place] [address] BEDSIDE GLUCOSE Collected: 04/03/2018 Status: F Source: [place] 10:43 PM [facility] [place] REPOSITORY TYPE CODE TESTS RESULT OUT OF REFERENCE UNITS RANGE LAB L501.080 70-110 mg/dL High BEDSIDE GLU 132 Result Comment: MANAGEMENT OF PATIENT CARE PER NURSING PROTOCOL Performed By: #### L501.080 #### [facility] Laboratory Point of Care [address] [place], [place] [id number] BEDSIDE GLUCOSE Collected: 04/03/2018 Status: F Source: [place] 4:54 PM [facility] [place] REPOSITORY TYPE CODE TESTS RESULT OUT OF RANGE REFERENCE UNITS LAB L501.080 70-110 mg/dL Normal BEDSIDE GLU 98 Result Comment: MANAGEMENT OF PATIENT CARE PER NURSING PROTOCOL Performed By: #### L501.080 #### [facility] Laboratory Point of Care [address] [place], [place] [id number] BEDSIDE GLUCOSE Collected: 04/03/2018 Status: F Source: [place] 11:35 AM [facility] [place] REPOSITORY TYPE CODE TESTS RESULT OUT OF REFERENCE UNITS RANGE LAB L501.080 70-110 mg/dL High BEDSIDE GLU 123 Result Comment: MANAGEMENT OF PATIENT CARE PER NURSING PROTOCOL Performed By: #### L501.080 #### [facility] Laboratory Point of Care [address] [place] [address] BEDSIDE GLUCOSE Collected: 04/03/2018 Status: F Source: [place] 6:47 AM [facility] [place] REPOSITORY TYPE CODE TESTS RESULT OUT OF REFERENCE UNITS RANGE LAB L501.080 70-110 mg/dL High BEDSIDE GLU 147 Result Comment: MANAGEMENT OF PATIENT CARE PER NURSING PROTOCOL Performed By: #### L501.080 #### [facility] Laboratory Point of Care [address] [place] [address] BEDSIDE GLUCOSE Collected: 04/02/2018 Status: F Source: [place] 10:38 PM [facility] [place] REPOSITORY TYPE CODE TESTS RESULT OUT OF REFERENCE UNITS RANGE LAB L501.080 70-110 mg/dL High BEDSIDE GLU 116 Result Comment: MANAGEMENT OF PATIENT CARE PER NURSING PROTOCOL Performed By: #### L501.080 #### [facility] Laboratory Point of Care [address] [place] [address] VENOUS DUPLEX LOWER Observed: 04/02/2018 Status: F Source: [place] EXTREMITY 2:17 PM [facility] [place] REPOSITORY [facility] Cardiovascular Services [address] [place] [address] Venous Duplex US - Noe Extrem 04/02/18 1125 MR#: [id number] Acct: [id number] Name: LUIS MANUELARISTIDES Carlita Rep #: [id number] : 1955 62 From: Wei Partida MD Attending Dr: Paco Butler DO Status: ADM IN Ordering Dr: Adán Miles MD Date: 04/02/18 Location: [facility] Sex: M C Admitted: 04/01/18 Reason For Study: RLE lymphedema with cellulitis RIGHT LEFT GSV is normal. GSV is normal. CFV is compressible, spontaneous, phasic, CFV is compressible, spontaneous, phasic, competent and demonstrates normal competent, and demonstrates normal augmentation. augmentation. FV is compressible, spontaneous, phasic, FV is compressible, spontaneous, phasic, competent and demonstrates normal competent and demonstrates normal augmentation. augmentation. POP V is compressible, spontaneous, phasic, POP V is compressible, spontaneous, phasic, competent and demonstrates normal competent and demonstrates normal augmentation. augmentation. T/P Trunk is compressible. T/P Trunk is compressible. PTV is compressible. PTV is compressible. RT PerV is compressible. LT PerV is compressible. PTV and PER V imaged distally only. Procedure Exam performed portable in patient room. Technically difficult due to extreme swelling RLE. A preliminary report was called and/or faxed to [facility]. Interpretation Summary Deep veins of the lower extremities are bilaterally patent and compressible segmentally. There is no evidence of deep vein thrombosis on either side. Valvular competence appears intact within the proximal deep venous systems bilaterally. The greater saphenous veins appear bilaterally patent and compressible segmentally. Portions of the right posterior tibial vein and peroneal vein were not visualized due to swelling. Ordering Physician: Adán Miles Referring Physician: Speedy Mtz Performed By: Chinyere Langston RVT 04/02/18 1416 Date Wei Partida MD CC: Paco Butler DO; Speedy Boswell MD; Adán Miles MD Date Dictated: 04/02/18 1125 Date Transcribed: 04/02/18 1416 Academic Support Coordinator: Signed CONSULTATION Observed: 04/02/2018 Status: F Source: [place] 1:34 PM [facility] [place] REPOSITORY [facility] Medical Records Department [address] [place] [address] Consultation 04/02/18 1328 MR#: [id number] Acct: [id number] Name: ARISTIDES ISSA Rep #: [id number] : 1955 62 From: Rick Vilchis MD PCP: Speedy Boswell MD Status: ADM IN Y Location: [facility] [id number] Problem List (1) Cellulitis of right lower extremity Status: Acute Reason for Consult: cellulitis Consulted by: Dr. Butler History of Present Illness: The patient is a 62 year old M with chronic RLE lymphedema and recurrent cellulitis who presented 04/01 with 2 days of progressive RLE mild pain, redness, loss of appetite, and malaise. Had noticed tiny scab on one toe of R foot. No fever or chills. Has been getting monthly Bicillin injections for almost a year as preventative measure. Next dose due next week. Frequency of infections is much better since starting injections. Came to ED, given vanc/zosyn x1, now on cefazolin, feeling a little better. Full ROS performed and neg except as noted above. 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) CABG x2- PARK to LAD, SARIAH to OM 06/01/05; PTCA/stent to prox LAD 02/02/05; PTCA/stent instent restenosis of prox LAD 10/15/13 Shortness of breath (Chronic) Postsurgical aortocoronary bypass status (Chronic 06/01/05) CABG x2- PARK to LAD, SARIAH to OM 06/01/05 Family history of CVA (Chronic) Ischemic cardiomyopathy (Chronic) Hyperlipidemia (Chronic) Hypertension (Chronic) ICD (implantable cardioverter-defibrillator) in place (Chronic 08/17/10) ICD Implant 2009 Allergies/Adverse Reactions: Allergies No Known Allergies Allergy (Verified 04/01/18 19:17) Home Medications: Ambulatory Orders Medication Instructions Recorded Atorvastatin Calcium [Lipitor] 40 mg PO DINNER 10/05/13 Montelukast [Singulair] 10 mg PO DAILY 10/05/13 - Social History SMOKING STATUS:: Former smoker Vital Signs Temp Pulse Resp BP Pulse Ox 98.0 F 80 18 125/75 H 96 04/02/18 10:00 04/02/18 10:33 04/02/18 10:00 04/02/18 10:00 04/02/18 10:00 Oxygen Delivery Method Room Air Weight: 149.7 kg Body Mass Index (BMI) 44.7 Laboratory Tests Past 24 Hrs WBC 6.3 RBC 3.93 L Hgb 12.2 L Hct 36.7 L MCV 93.4 MCH 31.0 MCHC 33.2 RDW 13.4 RDW Differential 45.9 H - Other Studies Radiology: [] reviewed Other Studies: [] Route of nutrition/ use of supplements: [] Nutritional Intake: [] IV Site: [] Craft Catheter: [] - Physical Exam General: Alert, Oriented x3, Cooperative HEENT: Atraumatic, PERRLA, EOMI Neck: Supple, No Nodes Lungs: Clear to auscultation, Normal air movement Cardiovascular: Regular rate, Regular Rhythm Abdomen: Bowel Sounds Present, Soft, Non Tender, Non-Distended Extremities: Edema - RLE edema Skin: Rash Present - mild RLE erythema IV Site: Peripheral, without redness Musculoskeletal: No Tenderness to Palpation of Joints or Extremities Neurological: Cranial nerves II-XII grossly intact - Assessment/Plan Antibiotics: [] Assessment/Plan: [] Active and Suspected Problems (Last Reviewed 01/08/18 @ 14:35 by Divina Ahumada) Cellulitis of right lower extremity (Acute) Mild. Improving. Normal wbc, no fever. Cont iv cefazolin. Has been getting suppressive Bicillin injections as an outpatient from his PCP. Thank you, will follow. D/w Dr. Butler. 04/02/18 1334 <Electronically signed by Rick Vilchis MD> Date Rick Vilchis MD Cosigner Signature (if applicable): Date CC: Speedy Boswell MD; Rick Vilchis MD Signed BEDSIDE GLUCOSE Collected: 04/02/2018 Status: F Source: [place] 6:25 AM [facility] [place] REPOSITORY TYPE CODE TESTS RESULT OUT OF REFERENCE UNITS RANGE LAB L501.080 70-110 mg/dL High BEDSIDE GLU 130 Result Comment: MANAGEMENT OF PATIENT CARE PER NURSING PROTOCOL Performed By: #### L501.080 #### [facility] Point of Care [facility] [place] [address] CBC W/DIFF, AUTOMATED Collected: 04/02/2018 Status: F Source: [place] 6:04 AM [facility] [place] REPOSITORY TYPE CODE TESTS RESULT OUT OF RANGE REFERENCE UNITS LAB L100.1000 4.4-11.0 K/mm3 Normal WBC 6.3 LAB L100.1200 4.6-6.2 M/mm3 Low RBC 3.93 LAB L100.1300 13.0-16.5 g/dl Low HGB 12.2 LAB L100.1400 40-54 % Low HCT 36.7 LAB L100.1500 80-94 fL Normal MCV 93.4 LAB L100.1600 27.0-32.0 pg Normal MCH 31.0 LAB L100.1700 32-36 g/gl Normal MCHC 33.2 LAB L100.1810 11.6-14.6 % Normal RDW CV 13.4 LAB L100.1820 35.1-43.9 fl High RDW SD 45.9 LAB L100.1900 150-450 K/mm3 Low PLT 109 LAB L100.2000 6.2-12.0 fl Normal MPV 9.0 LAB L100.2100 47-70 % High NEUT% 90.7 LAB L100.2200 19-41 % Low LY% 3.6 LAB L100.2300 0-10 % Normal MONO% 3.6 LAB L100.2400 0-5 % Normal EO% 1.7 LAB L100.2500 0-1 % Normal BASO% 0.2 LAB L100.2550 0.0-0.9 % Normal IM GRAN % 0.200 Result Comment: IG% - Immature Granulocytes (promyelocytes, myelocytes and metamyelocytes) > 1% indicates that a LEFT SHIFT is Present. LAB L100.2620 2.0-7.7 X10 3/uL Normal Absolute Neut 5.7 LAB L100.2720 0.83-4.51 X10 3/ul Low Absolute Lymph 0.23 LAB L100.4500 Normal SMEAR COMMENT SCANNED Result Comment: LYMPHOPENIA NOTED Performed By: #### L100.0100 #### [facility] [address] [place], [address] BASIC METABOLIC Collected: 04/02/2018 Status: F Source: [place] PROFILE ([facility]) 6:04 AM [facility] [place] REPOSITORY TYPE CODE TESTS RESULT OUT OF RANGE REFERENCE UNITS LAB L501.0100 74-106 mg/dL High GLU 121 Result Comment: Fasting Glucose result from 100 to 125 mg/dL suggests IMPAIRED HOMEOSTASIS per A.D.A. criteria. Please note revised GLUCOSE reference range effective 2018. LAB L501.1000 7-18 mg/dL Normal BUN 14 LAB L501.1100 0.70-1.30 mg/dL High CREAT,SERUM 1.35 Result Comment: The validity of the calculated GFR AND GFRAA in patients over 70 years has not been determined. Clinical correlation is essential. LAB L501.1110 >60 mL/min Low EST GFR 57 Result Comment: Non- GFR Calc LAB L501.1115 >60 mL/min Normal EST GFR - AA 69 Result Comment: GFR Calc LAB L501.1255 ml/min Normal Estimated CRCL 62.27 LAB L501.1300 10-20 RATIO Normal BUN/CRE 10.4 LAB L501.2200 8.5-10 mg/dL Normal .1 CA 8.9 LAB L501.5300 136-14 mmol/L Normal 5 NA 140 LAB L501.5600 3.5-5. mmol/L Normal 1 K 4.2 LAB L501.5900 98-107 mmol/L High CL 109 LAB L501.6100 21.0-3 mmol/L Normal 2.0 CO2 26.0 LAB L501.6200 5-15 Normal GAP 5 Performed By: #### L500.2500 #### [facility] [address] [place], [address] BEDSIDE GLUCOSE Collected: 04/01/2018 Status: F Source: [place] 10:51 PM [facility] REPOSITORY TYPE CODE TESTS RESULT OUT OF REFERENCE UNITS RANGE LAB L501.080 70-110 mg/dL High BEDSIDE GLU 131 Result Comment: MANAGEMENT OF PATIENT CARE PER NURSING PROTOCOL Performed By: #### L501.080 #### [facility] Point of Care [address] [place] [address] HISTORY AND PHYSICAL Observed: 04/01/2018 Status: F Source: [place] EXAM 9:26 PM [facility] REPOSITORY [facility] Medical Records Department [address] [place] [address] History and Physical 04/01/182111 MR#: [id number] Acct: [id number] Name: ARISTIDES ISSA Rep #: [id number] : 1955 62 From: Adán Miles MD PCP: Speedy Boswell MD Status: REG ER Y Location: ED Problem List (1) Lymphedema of right lower extremity Status: Chronic (2) Cellulitis of right lower extremity Status: Acute (3) Automatic implantable cardioverter-defibrillator in situ Status: Chronic (4) Chronic systolic congestive heart failure Status: Chronic (5) Presence of stent in coronary artery Status: Chronic Comment: PTCA/stent to prox LAD 02/02/05; PTCA/stent instent restenosis of prox LAD 10/15/13 (6) Atherosclerotic heart disease of hoh coronary artery without angina pectoris Status: Chronic Qualifiers: Comment: CABG x2- PARK to LAD, SARIAH to OM 06/01/05; PTCA/stent to prox LAD 02/02/05; PTCA/stent instent restenosis of prox LAD 10/15/13 (7) Shortness of breath Status: Chronic (8) Postsurgical aortocoronary bypass status Status: Chronic Comment: CABG x2- PARK to LAD, SARIAH to OM 06/01/05 (9) History of tobacco abuse Status: Acute (10) Family history of CVA Status: Chronic (11) Ischemic cardiomyopathy Status: Chronic (12) Hyperlipidemia Status: Chronic Qualifiers: (13) Hypertension Status: Chronic Qualifiers: (14) ICD (implantable cardioverter-defibrillator) in place Status: Chronic Comment: ICD Implant 2009 History of Present Illness Date of Admission: 04/01/18 Chief Complaint: Right lower extremity redness and swelling The patient is a 62 year old M with extensive cardiac history including coronary artery disease status post stent and two-vessel CABG, chronic systolic heart failure EF 45% and 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 Patient denies any pain, fever nausea vomiting or systemic symptoms. As per the patient, his redness and swelling correlates with cellulitis and had multiple admissions for similar condition in the past and requires about 3-5 days of IV antibiotics in the hospital. In ER, his vitals are stable. There is no leukocytosis. Patient started on IV vancomycin in ER. 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) CABG x2- PARK to LAD, SARIAH to OM 06/01/05; PTCA/stent to prox LAD 02/02/05; PTCA/stent instent restenosis of prox LAD 10/15/13 Shortness of breath (Chronic) Postsurgical aortocoronary bypass status (Chronic 06/01/05) CABG x2- PARK to LAD, SARIAH to OM 06/01/05 Family history of CVA (Chronic) Ischemic cardiomyopathy (Chronic) Hyperlipidemia (Chronic) Hypertension (Chronic) ICD (implantable cardioverter-defibrillator) in place (Chronic 08/17/10) ICD Implant 2009 Allergies No Known Allergies Allergy (Verified 04/01/18 19:17) Home Medications: Ambulatory Orders Medication Instructions Recorded Atorvastatin Calcium [Lipitor] 40 mg PO DAILY 10/05/13 Montelukast [Singulair] 10 mg PO DAILY 10/05/13 Surgical History: coronary bypass surgery - CABG x 2., total hip arthroplasty, tonsillectomy, - - RLE surgery for sarcoma w/ follow-up excisions, AICD. Psychiatric History: No pertinent psych hx Smoking Status: Former smoker - *Family History Maternal History Items: Heart Disease, Stroke Paternal History Items: Cancer - Father with history of liver CA., No pertinent history VTE Information - Inpt Only VTE Present on Admission: No VTE Mechan Device Prophylaxis: SCD's, Knee High IJEOMA Hose VTE Pharm Prophylaxis ordered?: Yes Patient Problems: Active and Suspected Problems (Last Reviewed 01/08/18 @ 14:35 by Divina Ahumada) Cellulitis of right lower extremity (Acute) - Physical Exam General: Alert, Oriented x3, Cooperative HEENT: Atraumatic, PERRLA, EOMI, Normocephalic Neck: Supple, No JVD, Negative Carotid Bruits Lungs: Clear to auscultation Cardiovascular: Regular rate, Regular Rhythm, Normal S1, Normal S2, No murmurs, - - CABG scar Abdomen: Bowel Sounds Present, Soft, Non Tender, Non-Distended Extremities: Capillary Refill Less than 3 Seconds, Edema Skin: Rash Present - Right foot and lower leg erythema. No tenderness. No obvious open wound Musculoskeletal: No Tenderness to Palpation of Joints or Extremities Neurological: Cranial nerves II-XII grossly intact Psych/Mental Status: Normal Affect, Appropriate Vital Signs Temp Pulse Resp BP Pulse Ox 98.9 F 71 20 H 120/65 98 04/01/18 20:54 04/01/18 20:54 04/01/18 20:54 04/01/18 20:54 04/01/18 20:54 Oxygen Delivery Method Room Air Weight: 331 lb 5.676 oz Body Mass Index (BMI) 46.2 Laboratory Tests Past 24 Hrs WBC 9.0 RBC 4.07 L Hgb 12.6 L Hct 37.8 L MCV 92.9 MCH 31.0 MCHC 33.3 RDW 13.2 RDW Differential 45.0 H WBC RBC Hgb Hct MCV MCH MCHC RDW RDW Differential Assessment/Plan Active and Suspected Problems (Last Reviewed 01/08/18 @ 14:35 by Divina Ahumada) Cellulitis of right lower extremity (Acute) The patient is a 62 year old M with extensive cardiac history including coronary artery disease status post stent and two-vessel CABG, chronic systolic heart failure EF 45% and 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 Patient denies any pain, fever nausea vomiting or systemic symptoms. As per the patient, his redness and swelling correlates with cellulitis and had multiple admissions for similar condition in the past and requires about 3-5 days of IV antibiotics in the hospital. In ER, his vitals are stable. There is no leukocytosis. Patient started on IV vancomycin in ER. 1. Right lower extremity lymphedema with venous congestion with possibility of cellulitis: It is hard to rule out cellulitis in view of chronic lymphedema and venous congestion. Patient is being admitted on the MedSur floor. Right lower leg venous Doppler ordered. Empirically started on IV cefazolin. Right lower leg elevation, Aj wrap bandage and other conservative management. Wound nurse consult. 2. Cardiac conditions: Coronary artery status post stent, two-vessel CABG, chronic systolic heart failure, EF 35% status post AICD: As per last echo in December 2015, EF 35% with moderate segmental systolic dysfunction and mildly dilated LV. Trivial TR and MR. new cardiac medications. No active cardiac concern. 3. Hypertension, dyslipidemia, history of nicotine use, (ex- smoker): Home medication reconciliation done. DVT prophylaxis: On heparin 5000 units subcutaneous twice daily. Code Visit Inpatient E AND M: 41142 Init Hosp L3 04/01/182125 <Electronically signed by Adán Miles MD> Date Adán Miles MD Cosigner Signature: Date (if applicable) CC: Speedy Boswell MD; Adán Miles MD Signed Observed: 04/01/2018 Status: F Source: [place] CULTURE, BLOOD (WB) 8:26 PM [facility] REPOSITORY BC No growth in 5 days. Performed By: #### M200.1000 #### [facility] [address] [place], [address] CBC W/DIFF, AUTOMATED Collected: 04/01/2018 Status: F Source: [place] 8:14 PM [facility] REPOSITORY TYPE CODE TESTS RESULT OUT OF RANGE REFERENCE UNITS LAB L100.1000 4.4-11.0 K/mm3 Normal WBC 9.0 LAB L100.1200 4.6-6.2 M/mm3 Low RBC 4.07 LAB L100.1300 13.0-16.5 g/dl Low HGB 12.6 LAB L100.1400 40-54 % Low HCT 37.8 LAB L100.1500 80-94 fL Normal MCV 92.9 LAB L100.1600 27.0-32.0 pg Normal MCH 31.0 LAB L100.1700 32-36 g/gl Normal MCHC 33.3 LAB L100.1810 11.6-14.6 % Normal RDW CV 13.2 LAB L100.1820 35.1-43.9 fl High RDW SD 45.0 LAB L100.1900 150-450 K/mm3 Low PLT 137 LAB L100.2000 6.2-12.0 fl Normal MPV 9.4 LAB L100.2100 47-70 % High NEUT% 78.0 LAB L100.2200 19-41 % Low LY% 12.2 LAB L100.2300 0-10 % Normal MONO% 7.4 LAB L100.2400 0-5 % Normal EO% 2.1 LAB L100.2500 0-1 % Normal BASO% 0.1 LAB L100.2550 0.0-0.9 % Normal IM GRAN % 0.200 Result Comment: IG% - Immature Granulocytes (promyelocytes, myelocytes and metamyelocytes) > 1% indicates that a LEFT SHIFT is Present. LAB L100.2620 2.0-7.7 X10 3/uL Normal Absolute Neut 7.0 LAB L100.2720 0.83-4.51 X10 3/ul Normal Absolute Lymph 1.09 Performed By: #### L100.0100 #### [facility] [address] [place], [address] LACTIC ACID Collected: 04/01/2018 Status: F Source: [place] 8:14 PM [facility] REPOSITORY Order Comment: Yes/No query for Sepsis Lactate Rule Y TYPE CODE TESTS RESULT OUT OF RANGE REFERENCE UNITS LAB L503.6005 0.4-2.0 mmol/L Normal LACTIC ACID 1.3 Performed By: #### L503.6005 #### [facility] [address] [place], [address] PROTHROMBIN TIME W/INR Collected: 04/01/2018 Status: F Source: [place] 8:14 PM [facility] REPOSITORY TYPE CODE TESTS RESULT OUT OF RANGE REFERENCE UNITS LAB L300.4150 11.7-14.9 SECONDS Normal PROTIME 14.9 LAB L300.4200 Normal INR 1.2 Performed By: #### L300.3900, L300.4310 #### [facility] [address] [place], [address] PARTIAL THROMBOPLAST Collected: 04/01/2018 Status: F Source: [place] TIME 8:14 PM [facility] REPOSITORY TYPE CODE TESTS RESULT OUT OF RANGE REFERENCE UNITS LAB L300.4310 24.1-36.2 Seconds Normal PTT 29.8 Performed By: #### L300.3900, L300.4310 #### [facility] [address] [place], [address] COMPREHENSIVE METABOLIC Collected: 04/01/2018 Status: F Source: [place] PROFIL 8:14 PM [facility] REPOSITORY TYPE CODE TESTS RESULT OUT OF RANGE REFERENCE UNITS LAB L501.0100 74-106 mg/dL Normal GLU 102 Result Comment: Fasting Glucose result from 100 to 125 mg/dL suggests IMPAIRED HOMEOSTASIS per A.D.A. criteria. Please note revised GLUCOSE reference range effective 2018. LAB L501.1000 7-18 mg/dL Normal BUN 15 LAB L501.1100 0.70-1.30 mg/dL High CREAT,SERUM 1.35 Result Comment: The validity of the calculated GFR AND GFRAA in patients over 70 years has not been determined. Clinical correlation is essential. LAB L501.1110 >60 mL/min Low EST GFR 57 Result Comment: Non- GFR Calc LAB L501.1115 >60 mL/min Normal EST GFR - AA 69 Result Comment: GFR Calc LAB L501.1255 ml/min Normal Estimated CRCL 60.43 LAB L501.1300 10-20 RATIO Normal BUN/CRE 11.1 LAB L501.1500 6.4-8. g/dL Normal 2 T PROT 7.0 LAB L501.1800 3.2-5. g/dL Normal 0 ALB 3.3 LAB L501.1950 2.2-4. g/dL Normal 2 GLOB 3.7 LAB L501.2000 0.9-2. RATIO Normal 4 A/G 0.9 LAB L501.2200 8.5-10 mg/dL Normal .1 CA 9.3 LAB L501.4100 15-37 U/L Low AST 14 LAB L501.4305 45-117 U/L Normal ALK P 98 LAB L501.4405 16-61 U/L Normal ALT 20 LAB L501.4600 0.20-1 mg/dL Normal .00 T BILI 0.40 LAB L501.5300 136-14 mmol/L Normal 5 NA 140 LAB L501.5600 3.5-5. mmol/L Normal 1 K 3.8 LAB L501.5900 98-107 mmol/L Normal CL 107 LAB L501.6100 21.0-3 mmol/L Normal 2.0 CO2 24.0 LAB L501.6200 5-15 Normal GAP 9 Performed By: #### L500.4050 #### [facility] [address] [place], [place], [address] ERYTHROCYTE SED RATE Collected: 04/01/2018 Status: F Source: [place] 8:14 PM [facility] REPOSITORY TYPE CODE TESTS RESULT OUT OF RANGE REFERENCE UNITS LAB L102.0000 0-20 mm/hr High SED RATE 32 Performed By: #### L101.9900 #### [facility] [address] [place], [address] HEMOGLOBIN A1C Collected: 04/01/2018 Status: F Source: [place] 8:14 PM [facility] REPOSITORY TYPE CODE TESTS RESULT OUT OF RANGE REFERENCE UNITS LAB L501.9985 4.2-6.3 % Normal HGB A1C 5.5 Performed By: #### L501.9985 #### [facility] [address] [place], [address] Observed: 04/01/2018 Status: F Source: [place] CULTURE, BLOOD (WB) 8:14 PM [facility] REPOSITORY BC No growth in 5 days. Performed By: #### M200.1000 #### [facility] [address] [place], [address] COMPREHENSIVE METABOLIC Collected: 02/17/2018 Status: F Source: [place] PROFIL 3:16 PM [facility] REPOSITORY TYPE CODE TESTS RESULT OUT OF RANGE REFERENCE UNITS LAB L501.0100 74-106 mg/dL Normal GLU 104 Result Comment: Fasting Glucose result from 100 to 125 mg/dL suggests IMPAIRED HOMEOSTASIS per A.D.A. criteria. Please note revised GLUCOSE reference range effective 2018. LAB L501.1000 7-18 mg/dL Normal BUN 16 LAB L501.1100 0.70-1.30 mg/dL High CREAT,SERUM 1.31 Result Comment: The validity of the calculated GFR AND GFRAA in patients over 70 years has not been determined. Clinical correlation is essential. LAB L501.1110 >60 mL/min Low EST GFR 59 Result Comment: Non- GFR Calc LAB L501.1115 >60 mL/min Normal EST GFR - AA 71 Result Comment: GFR Calc LAB L501.1300 10-20 RATIO Normal BUN/CRE 12.2 LAB L501.1500 6.4-8.2 g/dL T Normal PROT 7.7 LAB L501.1800 3.2-5.0 g/dL Normal ALB 3.8 LAB L501.1950 2.2-4.2 g/dL Normal GLOB 3.9 LAB L501.2000 0.9-2.4 RATIO Normal A/G 1.0 LAB L501.2200 8.5-10.1 mg/dL CA Normal 9.3 LAB L501.4100 15-37 U/L Normal AST 22 LAB L501.4305 45-117 U/L Normal ALK P 112 LAB L501.4405 16-61 U/L Normal ALT 28 Result Comment: Please note revised ALT reference range effective 2017. LAB L501.4600 0.20-1.00 mg/dL Normal T BILI 0.50 LAB L501.5300 136-145 mmol/L Normal NA 138 LAB L501.5600 3.5-5.1 mmol/L Normal K 4.0 LAB L501.5900 98-107 mmol/L Normal CL 105 LAB L501.6100 21.0-32.0 mmol/L Normal CO2 26.0 LAB L501.6200 5-15 Normal GAP 7 Performed By: #### L500.4050, L500.4100, L501.4700 #### [facility] [address] [place], [address] LIPID PROFILE Collected: 02/17/2018 Status: F Source: [place] 3:16 PM [facility] REPOSITORY TYPE CODE TESTS RESULT OUT OF RANGE REFERENCE UNITS LAB L501.4900 200 mg/dL Normal CHOL 147 Result Comment: <200 mg/dL Desirable 200-240 mg/dL Borderline >240 mg/dL High Risk LAB L501.5000 mg/dL Normal TRIG 142 Result Comment: The drugs N-Acetylcysteine and Metamizole may falsely depress this assay. Serum Triglycerides Reference Interval Normal <150 mg/dL Borderline high 150 - 199 mg/dL High 200 - 499 mg/dL Very High > or = 500 mg/dL LAB L501.6400 mg/dL Normal HDL 42 Result Comment: The drugs N-Acetylcysteine and Metamizole may falsely depress this assay. Reference Range HDL <40 mg/dL Low HDL Cholesterol HDL >or= 60 mg/dL High HDL Cholesterol LAB L501.6500 0-130 mg/dL Normal LDL 77 LAB L501.6600 5-40 mg/dL Normal VLDL 28 Performed By: #### L500.4050, L500.4100, L501.4700 #### [facility] [address] [place], [address] BILIRUBIN, DIRECT Collected: 02/17/2018 Status: F Source: [place] 3:16 PM [facility] REPOSITORY TYPE CODE TESTS RESULT OUT OF RANGE REFERENCE UNITS LAB L501.4700 0.00-0.30 mg/dL Normal D BILI 0.12 Performed By: #### L500.4050, L500.4100, L501.4700 #### [facility] [address] [place], [address] CARDIOLOGY VISIT Observed: 01/08/2018 Status: F Source: [place] REPORT 6:06 PM [facility] REPOSITORY [facility] [address] [place] [address] OFFICE VISIT Date of Service: 01/08/18 MR#: [id number] Acct: [id number] Name: ARISTIDES ISSA Rep #: [id number] : 1955 Provider: Speedy Mtz MD Age/Sex: 62/M Location: [facility] [place] Status: Signed HPI HPI Details: ARISTIDES ISSA, is a 62 M who presents to the office today for for outpatient cardiovascular follow-up of his history of underlying CAD, [place], CABG, LAD PTCA/stent, ischemic mediated cardiomyopathy, chronic systolic CHF, status post ICD placement, hyperlipidemia, and hypertension. He notes overall he feels as if he has been doing reasonably well with respect and not having ongoing symptoms of angina pectoris. He has had no issues of acute on chronic systolic CHF. There has been no issues with near syncope or syncope. His ICD has not discharged. His lipid labs were evaluated in May 2017. He does not believe they have been reassessed since that time. He did have a transthoracic echocardiogram performed in December 2015. The results are as noted below. Mildly dilated left ventricle. Moderate segmental systolic dysfunction (see wall motion). The estimated ejection fraction is 35 %. Trivial mitral valve insufficiency. Trivial tricuspid valve insufficiency. Mild focal aortic valve thickening. Trivial pulmonic valve insufficiency. Unable to estimate RV systolic pressure. ICD or pacer leads identified within the right atrium ICD or pacer leads identified within the right ventricle. He also had a pharmacologic stress nuclear imaging study performed in June 2016. The results are as noted below. IMPRESSION: 1. Rest and stress SPECT Cardiolite nuclear imaging demonstrates myocardial perfusion changes appearing compatible with an area of previous myocardial injury/infarction involving portions of the mid to distal anterior, anteroapical, septal apical, inferior/inferoapical, and lateral apical segments with no myocardial perfusion changes considered diagnostic for associated stress-induced myocardial ischemia. 2. The gated Cardiolite study reports an LVEF of 42%. He had a diagnostic cardiac catheterization performed at [facility] on 12/29/2013. The results are as noted below. Final impression: 1. Borderline elevation of the left ventricular end-diastolic pressure 2. Left ventricle: A. Hypokinesis of the anterior segment, akinesis of the anteroapical segment, dyskinesis of the inferior apical segment, hypokinesis of the mid inferior segment B, Estimated LVEF of 30% 3. Left main coronary artery: A. Proximal hoh band without angiographically significant appearing disease 4. Left anterior descending coronary: A. Proximal stented segment patent with minimal in-stent luminal irregularities B. Mid vessel with 10-25% appearing stenosis C. Wraparound LAD providing flow to the inferior segments D. Diagonal branch: Small, with proximal 25% appearing stenasis 5. Left circumflex coronary artery: A. Large dominant system B. Proximal 25% appearing stenosis C. Mid minimal luminal irregularities 6. Right coronary artery: A. Small nondominant vessel B. Angiographically normal 7. PARK to the LAD: A. Patent without angiographically significant appearing disease B. Provides competitive flow to the LAD although the LAD receives predominant flow via the hoh system 8. Free SARIAH arising from the PARK to an OM: A. Free SARIAH arising from the PARK to an OM is not visualized at this time His most recent PCI procedure was performed at [facility] on 10/15/2013. The results are as noted below.Impression: Successful stenting and successful angioplasty of the 70% in-stent restenosis of the pre-existing stent in the proximal left anterior descending arry. (Drug Eluting) His surgery was performed at [facility] on 06/01/2005. At that time he received a PARK to the LAD and a free SARIAH arising from the PARK going to the OM system. He also has an ICD in place. It is a [employer] model #2211-3 6: Serial number: [id number]: Implanted on 08/17/2010: It is a dual-chamber implantable defibrillator. Intake Vital Signs01/08/18 Height 5 ft 11 in 01/08/18 Weight: 326 lb 7 oz 01/08/18 Body Mass Index (BMI) 45.5 01/08/18 Blood Pressure 108/60 Intake Visit Reasons: 6 M FU Allergies No Known Allergies Allergy (Verified 01/08/18 14:26) Medications Atorvastatin Calcium [Lipitor] 40 mg PO DAILY 10/05/13 [History Confirmed 01/08/18] Montelukast [Singulair] 10 mg PO DAILY 10/05/13 [History Confirmed 01/06/18] Niacin SA [Niaspan] 1,000 mg PO QHS 10/05/13 [History Confirmed 01/08/18] Escitalopram Oxalate [Lexapro] 20 mg PO DAILY 11/02/14 [History Confirmed 01/08/18] Carvedilol [Coreg] 25 mg PO BID 05/24/17 [History Confirmed 01/08/18] Furosemide [Lasix] 40 mg PO DINNER 05/24/17 [History Confirmed 01/08/18] Furosemide [Lasix] 80 mg PO BREAKFAST 05/24/17 [History Confirmed 01/08/18] Isosorbide Mononitrate [Imdur] 60 mg PO BID 05/24/17 [History Confirmed 01/08/18] Meloxicam [Mobic] 15 mg PO DAILY 05/24/17 [History Confirmed 01/08/18] Temazepam [Restoril] 30 mg PO QHS 05/24/17 [History Confirmed 01/08/18] Clopidogrel Bisulfate [Plavix] 75 mg PO DAILY #0 05/28/17 [Rx Confirmed 01/08/18] L. Acidophilus/Pectin, [place] [Acidophilus-Pectin [place]] 1 ea PO BID #10 tab 05/28/17 [Rx Confirmed 01/08/18] Ranolazine [Ranexa] 1 tab PO BID 06/08/17 [History Confirmed 01/08/18] Aspirin [Aspirin, Baby] 81 mg PO QHS 06/09/17 [History Confirmed 01/08/18] Acetaminophen [Tylenol Tablet] 650 mg PO Q6H PRN PRN tab 07/10/17 [Rx Confirmed 01/08/18] Amoxicillin/Potassium Clav [Amox-Clav 875-125 mg Tablet] PRN 11/04/17 [History Confirmed 01/08/18] Oxycodone HCl/Acetaminophen [Percocet 5/325] 1 - 2 tab PO Q4H PRN PRN #12 tab 11/04/17 [Rx Confirmed 01/08/18] gabapentin 600 mg tablet 600 mg PO .Q HS tab 01/06/18 [History Confirmed 01/08/18] loratadine 10 mg tablet 10 mg PO QDAY 01/06/18 [History Confirmed 01/08/18] nitroglycerin 0.4 mg sublingual tablet 0.4 mg SUBLINGUAL Q5M PRN 01/06/18 [History Confirmed 01/06/18] bupropion HCl SR 150 mg tablet,12 hr sustained-release 150 mg PO BID 01/08/18 [History Confirmed 01/08/18] pantoprazole 40 mg tablet,delayed release 40 mg PO BID tab 01/08/18 [History Confirmed 01/08/18] potassium chloride ER 20 mEq tablet,extended release 40 meq PO QDAY tab 01/08/18 [History Confirmed 01/08/18] ramipril 5 mg capsule 2.5 mg PO DAILY cap 01/08/18 [History Confirmed 01/08/18] sennosides 8.6 mg tablet 8.6 mg PO QDAY 01/08/18 [History Confirmed 01/08/18] [facility] Medical History Chronic systolic congestive heart failure (Chronic) Presence of stent in coronary artery (Chronic) 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) Shortness of breath (Chronic) History of tobacco abuse (Acute) Family history of CVA (Chronic) Ischemic cardiomyopathy (Chronic) Hyperlipidemia (Chronic) Hypertension (Chronic) ICD (implantable cardioverter-defibrillator) in place (Chronic 08/17/10) Family history of CVA (Acute) GERD (gastroesophageal reflux disease) (Acute) History of tobacco abuse (Acute) Lymphedema of right lower extremity (Acute) Acute lymphangitis of right lower extremity (Inactive) Atherosclerosis of coronary artery bypass graft without angina pectoris (Inactive) CAD (coronary artery disease) (Inactive) Chronic Systolic CHF - EF 45% (Inactive) Effects of radiation (Inactive) GERD (gastroesophageal reflux disease) (Inactive) Gastroenteritis (Inactive) History of 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 (Inactive) 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) Lymphedema of Right Leg (Inactive) Lymphedema of right lower extremity (Inactive) Morbid obesity with BMI of 40.0-44.9, adult (Inactive) SIRS (systemic inflammatory response syndrome) (Inactive) Surgical History Postsurgical aortocoronary bypass status (Chronic 06/01/05) History of percutaneous transluminal coronary angioplasty (Inactive) Family History Mother CAD (coronary artery disease) Father CVA (cerebral vascular accident) Myocardial infarction Brother CAD (coronary artery disease) Hx of CABG Brother CAD (coronary artery disease) Hx of CABG Social History Smoking Status: Never smoker ROS Const Const: Negative for fatigue, weakness, weight gain, weight loss, frequent falls or excessive sweating Eyes Eyes: Negative for change in vision, blurry vision or transient loss of vision ENT ENT: Negative for dizziness, Negative for balance problems Cardio Chest Pain: No Palpitations: Positive for No Edema: None Muscle aches with walking: None Resp Respiratory: Positive for SOB with activity (occasional) and SOB at rest (occasional) GI GI: Negative vomiting or vomiting blood/hematemesis : Negative for hematuria Musc Musc: Negative for balance problems, muscle aches/ myalgia, muscle weakness or joint pain Skin Skin: Negative non-healing lesions or rash Neuro Neuro: Negative for weakness, Negative for blurry vision, Negative for dizziness, Negative for lightheadedness, Negative for frequent falls, Negative for orthostatic symptoms Gavin Hematologic/Lymphatic: Negative for easy bleeding Endo Endo: Negative for fatigue or excessive sweating Psych Psych: Negative for anxiety or depression Allergy Allergy/Immunology: Negative for hives, Negative for rash Cardiology Exam Const Appearance: cooperative, healthy appearing, comfortable, no acute distress, well developed and well groomed Nutritional Appearance: obese Orientation: alert, awake and oriented x3 Head Head: normal to inspection, normocephalic and atraumatic Nose: external nose normal Face and Sinus: face symmetric Mouth: oral mucosae normal Teeth and gingiva: fair dentition Eyes General: appearance normal, both eyes and all related structures Eyelids: eyelids normal Conjunctivae: conjunctivae normal Pupils: PERRL EOM: EOM intact bilaterally Neck Neck: normal visual inspection and full ROM Carotids: normal carotid upstroke Chest Chest inspection: normal inspection of the chest and symmetric chest movement Auscultation: Bilateral: Clear to Auscultation Cardio Palpation: normal PMI Rate: regular rate Rhythm: regular rhythm Heart sounds: S1 normal and S2 normal GI GI: obese, normal to inspection, soft, no hepatosplenomegaly and bowel sounds present Neuro General: alert, awake and oriented x3 Skin Skin: no rashes or lesions noted Extremities Lower Extremity Edema: +3: Right Psych Psychological: normal affect Assessment AND Plan 1. Atherosclerosis of hoh coronary artery of hoh heart without angina pectoris I25.10 CABG x2- PARK to LAD, SARIAH to OM 06/01/05; PTCA/stent to prox LAD 02/02/05; PTCA/stent instent restenosis of prox LAD 10/15/13 Plan At the present time he appears to be without acute symptoms. He will continue risk factor modification and medical management. 2. Postsurgical aortocoronary bypass status Z95.1 CABG x2- PARK to LAD, SARIAH to OM 06/01/05 Plan His previous CABG is as noted above. He will continue risk factor modification and medical therapy. 3. Presence of stent in coronary artery Z95.5 PTCA/stent to prox LAD 02/02/05; PTCA/stent instent restenosis of prox LAD 10/15/13 Plan He has had previous PCI procedures. His most recent one is as noted above. Again he appears without acute symptoms. He will continue medical therapy and follow-up. 4. Cardiomyopathy, ischemic I25.5 Plan He does have an ischemic mediated cardio myopathy. His most recent LV evaluation/LV systolic function/LVEF is as noted above. He will continue medical management. 5. Chronic systolic CHF (congestive heart failure) I50.22 Plan He does not appear to have symptoms of acute on chronic systolic CHF at this time. He will continue his current therapy and follow-up. 6. Automatic implantable cardioverter-defibrillator in situ Z95.810 Plan He does have an ICD in place. It has been followed. It has been functioning appropriately. 7. Hyperlipidemia, unspecified hyperlipidemia type E78.5 Plan He will be having future lipid and hepatic labs to monitor his cardiovascular risk factors. Orders Orders: 8. Essential hypertension I10 Plan He has blood pressure appears to be under reasonably good control. He will continue medical therapy. Plan Detail Other Medications New: Changed: Discontinued: potassium chloride ER Discontinued Reason: Order Chan20 mEq PO DAILY Divina Brandyn klarissa sucralfate Take one tab 1 hr before meals and at bedti1 GM PO ACHS Divina Ahumada me Discontinued Reason: Pt no longer taking Additional Comments Otherwise he will be scheduled for an outpatient visit in approximately 6 months unless needed sooner. Thank you for allowing me to participate in the care of your patient. Please don't hesitate to call if any issues arise. This note was generated using a voice recognition system and there may be incorrect words, spelling or punctuation that were not noted when reviewing the office note prior to saving. Follow Up 6 Months (PA/[employer] SAWYER) Coding Level of Care Code Off vis,est,level 4 Diagnoses Atherosclerosis of hoh coronary artery of hoh heart without angina pectoris I25.10 [place] vs. transplanted heart: hoh heart Postsurgical aortocoronary bypass status Z95.1 Presence of stent in coronary artery Z95.5 Cardiomyopathy, ischemic I25.5 Chronic systolic CHF (congestive heart failure) I50.22 Automatic implantable cardioverter-defibrillator in situ Z95.810 Hyperlipidemia, unspecified hyperlipidemia type E78.5 Hyperlipidemia type: unspecified Essential hypertension I10 Hypertension type: essential hypertension Coding Level of Care Code Off vis,est,level 4 Diagnoses Atherosclerosis of hoh coronary artery of hoh heart without angina pectoris I25.10 [place] vs. transplanted heart: hoh heart Postsurgical aortocoronary bypass status Z95.1 Presence of stent in coronary artery Z95.5 Cardiomyopathy, ischemic I25.5 Chronic systolic CHF (congestive heart failure) I50.22 Automatic implantable cardioverter-defibrillator in situ Z95.810 Hyperlipidemia, unspecified hyperlipidemia type E78.5 Hyperlipidemia type: unspecified Essential hypertension I10 Hypertension type: essential hypertension 01/08/18 1806 <Electronically signed by Speedy Mtz MD> Date Speedy Mtz MD Cosigner Signature: Date (if applicable) CC: Speedy Boswell MD ALLERGIES ALLERGIES DATE TYPE / CODE NAME / CODE REACTION SEVERITY SOURCE 10/09/2018 Drug No Known Unknown [facility] Allergy/4160 Allergies/F00 [facility] 46597(SNOMED 4084074(RXNOR Repository CT) M) ENCOUNTERS ENCOUNTERS ADMIT/DISCHARGE ACCOUNT NUMBER ADMITTING ENCOUNTER LOCATION SOURCE CLASS 12/23/2018 [id number] Ambulatory [facility] ding:[facility] Repository 12/04/2018 [id number] Ambulatory BMSBuilding: Natalie BMS.[facility] Repository 11/13/2018 [id number] Ambulatory [facility] ding:CT Repository 11/06/2018 [id number] Ambulatory [facility] ding:LAB Repository 10/09/2018/10/09/20 [id number] Ambulatory BMSBuilding: Natalie 18 BMS.[facility] Repository 10/02/2018/10/02/20 [id number] Emergency [address] ding:ED Repository 08/26/2018/08/26/20 [id number] Ambulatory BMSBuilding: Natalie 18 BMS.[facility] Repository 07/28/2018/07/28/20 [id number] Ambulatory [address] ding:SDC Repository 07/21/2018/07/21/20 [id number] Ambulatory BMSBuilding: Natalie 18 BMS.[facility] Repository 06/17/2018/06/17/20 [id number] Ambulatory [facility] [place] 18 ing:Critical access hospital Repository 06/08/2018/06/08/20 [id number] Emergency [place] ding:ED Repository 05/26/2018/05/26/20 [id number] Ambulatory BMSBuilding: Natalie 18 BMS.[facility] Repository 04/26/2018/04/26/20 [id number] Emergency [address] ding:ED Repository 04/02/2018 [id number] Ambulatory BMSBuilding: [place] BMS.[facility] Repository 04/01/2018/04/04/20 [id number] Jd, Inpatient Natalie Natalie 18 Adán Encounter [facility] ding:[id number] Repository : [id number]: 1 04/01/2018 [id number] [facility], Ambulatory BMSBuilding: Natalie Adán BMS.[facility] Repository 04/01/2018 [id number] [facility], Ambulatory BMSBuilding: [place] Adán BMS.[facility] Repository 04/01/2018 [id number] [facility], Ambulatory BMSBuilding: [place] Adán BMS.[facility] Repository 04/01/2018 [id number] Ambulatory BMSBuilding: [place] BMS.[facility] Repository 02/17/2018 [id number] Ambulatory [place] [facility] ding:LAB Repository 01/08/2018/01/08/20 [id number] Ambulatory BMSBuilding: [place] 18 BMS.[facility] Repository 01/08/2018 [id number] Ambulatory BMSBuilding: [place] BMS.[facility] Repository PAYERS PAYERS ENCOUNTER GUARANTOR PAYER SUBSCRIBER SOURCE 12/23/2018 ARISTIDES Zazueta Primary ARISTIDES [id number] Insurance:MEDICARE CARLTONDOB: Critical access hospital PART A [facility] [id number] Number: Repository [address]Qjx: (238) [id number] [phone] () Date:2018-10-10 12/23/2018 Secondary ARISTIDES S Natalie Insurance:[facility]ITALSAVANNAHPolconnory CARLTONDOB: [facility] Number: [id number] Hospital [id number] Repository Date:2779-34-81YZ [address], [place] [address]XY: 12/23/2018 Tertiary NOT GIVENUNK [place] Insurance:SELF PAY [facility] Number: Effective Repository Date:2018-10-10 12/04/2018 ARISTIDES S Primary ARISTIDES Estrada [id number] Insurance:[facility]PITALNAPolicy [facility]: Critical access hospital Number: [id number], [place] [id number] Repository [address]Lmx: (330) Date:4419-13-51[phone] () 044206FZBNXPLZIGK, [place] [address]IV: 12/04/2018 Secondary ARISTIDES S Natalie Insurance:MEDICARE CARLTONDOB: Community PART A [facility] [id number] Hospital Number: Repository [id number] Date:2018-08-26 12/04/2018 Tertiary NOT GIVENUNK Natalie Insurance:SELF PAY [facility] Number: Effective Repository Date:2018-11-28 11/13/2018 ARISTIDES S Primary ARISTIDES [id number] Insurance:MEDICARE CARLTONDOB: Community [place] PART A [facility] [id number] Number: Repository [address]Vkj: 330 [id number] [phone] () Date:2018-11-06 11/13/2018 Secondary ARISTIDES S [place] Insurance:CIGNAPolicy CARLTONDOB: Community Number: [id number] Hospital [id number] Repository Date:9852-84-00QK [address]KFTWZWEFWPZ, [place] [address]GK: 11/13/2018 Tertiary NOT GIVENUNK [place] Insurance:SELF PAY [facility] Hospital Number: Effective Repository Date:2018-11-06 11/06/2018 ARISTIDES S Primary ARISTIDES Estrada [id number] Insurance:MEDICARE CARLTONDOB: Community [place] PART A [facility] [id number] Number: Repository [address]Loc: 330 [id number] [phone] () Date:2018-11-06 11/06/2018 Secondary ARISTIDES S Natalie Insurance:CIGNAPolicy CARLTONDOB: Community Number: [id number] Hospital [id number] Repository Date:6938-43-20NO [address]OETGPTBLYYL, [place] [address]BE: 11/06/2018 Tertiary NOT GIVENUNK [place] Insurance:SELF PAY [facility] Number: Effective Repository Date:2018-11-06 10/09/2018 ARISTIDES S Primary ARISTIDES Estrada [id number] Insurance:MEDICARE CARLTONDOB: Community [place] PART A [facility] [id number] Number: Repository [address]Pmk: 330 [id number] [phone] () Date:2018-09-23 10/09/2018 Secondary ARISTIDES S [place] Insurance:CIGNAPolicy CARLTONDOB: Community Number: [id number] Hospital [id number] Repository Date:2736-66-95LO [address]JXSWDENAANZ, [place] [address]BL: 10/09/2018 Tertiary NOT GIVENUNK [place] Insurance:SELF PAY [facility] Number: Effective Repository Date:2018-10-03 10/02/2018 ARISTIDES S Primary ARISTIDES Estrada [id number] Insurance:MEDICARE CARLTONDOB: Community [place] PART A [facility] [id number] Number: Repository [address]Vck: 330 [id number] [phone] () Date:2018-10-02 10/02/2018 Secondary ARISTIDES S [place] Insurance:CIGNAPolicy CARLTONDOB: Community Number: [id number] Hospital [id number] Repository Date:7698-85-72RQ [address]ZLEOYKMQZXY, [place] [address]EX: 10/02/2018 Tertiary NOT GIVENUNK [place] Insurance:SELF PAY [facility] Number: Effective Repository Date:2018-10-02 08/26/2018 ARISTIDES S Primary ARISTIDES Machucaoster [id number] Insurance:CIGNAPolicy CARLTONDOB: Community [facility] Number: [id number], [place] [id number] Repository [address]Spv: 330) Date:1887-65-10DT [phone] () 477040VMNLKASIIRS, [place] [address]ZN: 08/26/2018 Secondary NOT GIVENUNK [place] Insurance:SELF PAY [facility] Number: Effective Repository Date:2018-08-26 07/28/2018 ARISTIDES [facility] ARISTIDES Zazueta [place] [id number] Insurance:CIGNAPolicy [facility]ENTERDOB: Critical access hospital Number: [id number], [place] [id number] Repository [address]Whl: (330) Date:1834-23-10QV [phone] () 613780UURTMQHFDXX, [place] [address]CP: 07/28/2018 Secondary NOT GIVENUNK Natalie Insurance:SELF PAY [facility] Number: Effective Repository Date:2018-06-25 07/21/2018 ARISTIDES Zazueta [facility] ARISTIDES Zazueta [facility]2650 Insurance:CIGNAPolicy DUNBARDOB: Critical access hospital Number: [id number], [place] [id number] Repository [address]Bpa: (330) Date:2820-50-95WE [phone] () 880807GZRLHLFIUTK, [place] [address]CU: 07/21/2018 Secondary NOT GIVENUNK Natalie Insurance:SELF PAY [facility] Number: Effective Repository Date:2018-07-18 06/17/2018 [facility]: [facility] [id number] Number: [id number] [place] [address] [id number] [address] [place] [address] Date:2018-06-13 [place] [address]~[id number]@ 1259-13-53Elgn 19398Gvv: (642) Rebecca: (330) Name:TARIK [phone] () 7909[address]Ololjisphog, [place] ()Tel: [phone]: (wp) [phone] 06/08/2018 ARISTIDES [facility] ARISTIDES Estrada [id number] Insurance:CIGNAPolicy CARLTONDOB: Community [place] Number: [id number], [place] [id number] Repository [address]Agz: (330) Date:1772-37-38FN [phone] () 964018DNOJAOPGNYM, [place] [address]SR: 06/08/2018 Secondary NOT GIVENUNK [place] Insurance:SELF PAY [facility] Number: Effective Repository Date:2018-06-08 05/26/2018 ARISTIDES S Primary ARISTIDES Estrada [id number] Insurance:CIGNAPolicy CARLTONDOB: [facility] [place] Number: [id number] [place] [id number] Repository [address]Oan: (330) Date:5273-45-10DU [phone] () 869794YUKSBWGRCTZ, [place] [address]TO: 05/26/2018 Secondary NOT GIVENUNK Natalie Insurance:SELF PAY [facility] Number: Effective Repository Date:2018-05-26 04/26/2018 ARISTIDES S Primary ARISTIDES Estrada [id number] Insurance:CIGNAPolicy CARLTONDOB: Community [place] Number: [id number], [place] [id number] Repository [address]Obn: (330) Date:4604-46-81ZG [phone] () 391106IEZRGGKLCIX, [place] [address]NA: 04/26/2018 Secondary NOT GIVENUNK Natalie Insurance:SELF PAY [facility] Number: Effective Repository Date:2018-04-26 04/02/2018 ARISTIDES S Primary ARISTIDES Estrada [id number] Insurance:CIGNAPolicy CARLTONDOB: [facility] Number: [id number], [place] [id number] Repository [address]Aof: (330) Date:5409-71-02AU [phone] () 719440VEIBTDDRXKJ, [place] [address]ZN: 04/02/2018 Secondary NOT GIVENUNK Natalie Insurance:SELF PAY [facility] Number: Effective Repository Date:2017-12-20 04/01/2018 ARISTIDES S Primary ARISTIDES Estrada [id number] Insurance:MEDICARE A CARLTONDOB: Community [place] [facility]y Number: [id number], [place] [id number] Repository [address]Oph: (330) Date:2018-04-01 [phone] () 04/01/2018 Secondary ARISTIDES S [place] Insurance:CIGNAPolicy CARLTONDOB: Community Number: [id number] Hospital [id number] Repository Date:1207-81-96DU [address]FJSACAZNTCW, [place] [address]FR: 04/01/2018 Tertiary NOT GIVENUNK Natalie Insurance:SELF PAY [facility] Number: Effective Repository Date:2018-04-01 04/01/2018 ARISTIDES S Primary ARISTIDES Estrada [id number] Insurance:CIGNAPolicy CARLTONDOB: [facility] Number: [id number], [place] [id number] Repository [address]Dxg: (330) Date:1436-48-94ZR [phone] () 043380XLRDXXVRWVX, [place] [address]HE: 04/01/2018 Secondary NOT GIVENUNK Natalie Insurance:SELF PAY [facility] Number: Effective Repository Date:2018-04-01 04/01/2018 ARISTIDES S Primary ARISTIDES Estrada [id number] Insurance:CIGNAPolicy CARLTONDOB: [facility] Number: [id number], [place] [id number] Repository [address]Wsf: (330) Date:9850-32-25NX [phone] () 424048AURNEWVBSGD, [place] [address]OA: 04/01/2018 Secondary NOT GIVENUNK Natalie Insurance:SELF PAY [facility] Hospital Number: Effective Repository Date:2018-04-01 04/01/2018 ARISTIDES S Primary ARISTIDES Estrada [id number] Insurance:CIGNAPolicy CARLTONDOB: Community [place] Number: [id number], [place] [id number] Repository [address]Eik: (330) Date:9070-36-65ZQ [phone] () 879912TMKUAYMZUAD, [place] [address]BT: 04/01/2018 Secondary NOT GIVENUNK [place] Insurance:SELF PAY [facility] Number: Effective Repository Date:2018-04-01 04/01/2018 ARISTIDES S Primary ARISTIDES S [place] [id number] Insurance:CIGNAPolicy CARLTONDOB: [facility] Number: [id number], [place] [id number] Repository [address]Dwr: (330) Date:7341-17-45KE [phone] () 550632RMAHSSGRXIS, [place] [address]LN: 04/01/2018 Secondary NOT GIVENUNK Natalie Insurance:SELF PAY [facility] Number: Effective Repository Date:2018-04-01 02/17/2018 ARISTIDES S Primary ARISTIDES S Natalie [id number] Insurance:CIGNAPolicy CARLTONDOB: [facility] Number: [id number], [place] [id number] Repository [address]Pyu: (330) Date:9339-03-55KN [phone] () 354818GKYYPFFWZHA, [place] [address]ON: 02/17/2018 Secondary NOT GIVENUNK [place] Insurance:SELF PAY [facility] Number: Effective Repository Date:2018-02-17 01/08/2018 ARISTIDES S Primary ARISTIDES S Natalie [id number] Insurance:CIGNAPolicy CARLTONDOB: [facility] Number: [id number], [place] [id number] Repository [address]Web: (330) Date:2956-94-31UN [phone] () 708732XPWTIFTQEPB, [place] [address]ES: 01/08/2018 Secondary NOT GIVENUNK [place] Insurance:SELF PAY [facility] Number: Effective Repository Date:2017-11-09 01/08/2018 ARISTIDES Zazueta Primary ARISTIDES Zazueta Natalie [id number] Insurance:Ene SYEDB: Critical access hospital Number: [id number], [place] [id number] Repository [address]Ujt: (330) Date:8551-98-69CZ [phone] () 325587TOBSZEHOITR, [place] [address]EY: 01/08/2018 Secondary NOT GIVENUNK Natalie Insurance:SELF PAY [facility] Number: Effective Repository Date:2018-01-08
== END ==
PROVIDERS: Family Provider Family Medicine; PCP Family Medicine; Referring Provider Urology; Visit Provider Urology
DX: N20.0 Calculus of kidney (principal)
CPT/HCPCS: 74176

== ENCOUNTER → 2018-12-23 06:46 | Outpatient (CLI) | payer MEDICARE, OTHER, SELFPAY ==
[2018-11-06 13:39] VITALS: BMI 45.5
--- NOTE | 2018-12-23 06:50 | ECHOD_ITS ---
Reason For Study: CAD/ASHD Procedure This was a 2D Doppler, Color Flow transthoracic echocardiogram. The study was technically difficult. Contrast injection was performed. Exam performed in department. Left Ventricle Mildly dilated left ventricle. Moderate segmental systolic dysfunction (see wall motion). The estimated ejection fraction is 35 %. No evidence for diastolic dysfunction. Infero-Basal: Hypokinetic. Basal inferoseptal: Hypokinetic. Basal anteroseptal: Hypokinetic. Mid-Anterior : Hypokinetic. Mid-Inferior: Hypokinetic. Mid-inferoseptal : Akinetic. Mid-anteroseptal : Akinetic. Anterior [place] : Akinetic. Inferior [place] : Akinetic. Lateral [place] : Dyskinetic. Septal [place] : Akinetic. Right Ventricle Normal RV size. ICD or pacer leads identified within the right ventricle. Normal systolic function. Atria Normal left atrium. Normal right atrium. ICD or pacer leads identified within the right atrium. No doppler evidence for ASD. Mitral Valve There is no mitral annular calcification. Normal mitral valve. Trivial mitral valve insufficiency. Tricuspid Valve Normal tricuspid valve. Trivial tricuspid valve insufficiency. Unable to estimate RV systolic pressure/pulmonary artery pressure due to technically difficult study. Aortic Valve Trisinus/trileaflet aortic valve. Mild focal aortic valve thickening. Pulmonic Valve The pulmonic valve is not well visualized. Mild (1+) pulmonic valve insufficiency. Great Vessels Normal sized aortic root. Pericardium/Pleural No pericardial effusion. Medication 22 gauge I.V. with prn adaptor inserted into left arm. Diluted definity 5ml given slow IV push to enhance endocardial definition. MMode/2D Measurements & Calculations LVIDd: 5.5 cm IVSd: 1.2 cm Ao root diam: 3.3 cm LVIDs: 4.3 cm LVPWd: 1.4 cm LA dimension: 4.4 cm FS: 21.2 % LAV(MOD-bp): 50.5 ml LVAd ap4: 37.6 cm2 SV(MOD-sp4): 50.4 ml LAV(MOD-bp) Indexed: 19.6 ml/m2 EDV(MOD-sp4): 126.9 ml LAV(MOD-sp2): 49.8 ml EDV(sp4-el): 129.1 ml LAV(MOD-sp4): 49.1 ml LVAs ap4: 28.3 cm2 ESV(MOD-sp4): 76.5 ml ESV(sp4-el): 80.7 ml EF(MOD-sp4): 39.7 % EF(sp4-el): 37.4 % SV(sp4-el): 48.3 ml LA A4 area: 18.5 cm2 Time Measurements MV dec time: 0.39 sec Doppler Measurements & Calculations MV E max armin: 41.4 cm/sec Lat Peak E' Armin: 6.1 cm/sec Med Peak E' Armin: 5.8 cm/sec MV A max armin: 69.9 cm/sec E/E' lat: 6.8 E/E' med: 7.1 MV E/A: 0.59 MV V2 max: 78.3 cm/sec Ao V2 max: 123.9 cm/sec LV V1 max: 104.9 cm/sec MV max P.5 mmHg Ao max P.1 mmHg LV V1 max P.4 mmHg MV V2 mean: 40.2 cm/sec Ao V2 mean: 85.5 cm/sec LV V1 mean P.9 mmHg MV mean P.75 mmHg Ao mean P.3 mmHg LV V1 mean: 62.0 cm/sec MV V2 VTI: 30.4 cm Ao V2 VTI: 23.2 cm LV V1 VTI: 20.7 cm PA V2 max: 78.0 cm/sec Interpretation Summary The study was technically difficult. Contrast injection was performed. Mildly dilated left ventricle. Moderate segmental systolic dysfunction (see wall motion). The estimated ejection fraction is 35 %. Trivial mitral valve insufficiency. Trivial tricuspid valve insufficiency. Mild focal aortic valve thickening. Mild (1+) pulmonic valve insufficiency. Unable to estimate RV systolic pressure/pulmonary artery pressure due to technically difficult study. No evidence for diastolic dysfunction. ICD or pacer leads identified within the right atrium ICD or pacer leads identified within the right ventricle. Ordering Physician: Speedy Mtz Referring Physician: Speedy Mtz Performed By: Orion Ware RCS
--- NOTE | 2018-12-23 09:11 | STRESSREP ---
Stress Test Report Date: 12/23/2018 Procedure: Pharmacologic (regadenoson) evaluation Indications: CAD; status post PCI; status post CABG; ischemic mediated cardiomyopathy; ICD; preoperative cardiovascular evaluation Consent: Per the patient Procedure: The patient underwent pharmacologic (regadenoson) evaluation with a peak heart rate of 78 beats per minute (49% predicted maximal heart rate) with a peak blood pressure 130/84 mmHg. The base line ECG demonstrated normal sinus rhythm with a possible anterolateral IN pattern of indeterminate age. The peak pharmacological ECG demonstrated no obvious ECG changes. There was an isolated PVC during infusion. There was no complaint of chest discomfort during pharmacologic infusion or recovery. The examination was discontinued secondary to completion of protocol. Impression: 1. Pharmacologic (regadenoson) evaluation 2. Peak pharmacologic ECG with no obvious ECG changes 3. Isolated PVCs during infusion 4. Nuclear images pending Myocardial perfusion imaging study: Technique: The patient was injected with 14.9 mci of technetium 99 M Cardiolite and subsequently rest SPECT Cardiolite nuclear imaging was obtained in the horizontal long, vertical long, and short axis views. The patient underwent pharmacologic (regadenoson) evaluation with a peak heart rate of 78 beats per minute (49% predicted maximal heart rate) with a peak blood pressure 130/84 mmHg. The patient was injected with 44.8 mci of technetium 99 M Cardiolite and subsequently stress SPECT Cardiolite nuclear imaging was obtained in the horizontal long, vertical long, and short axis views. A gated Cardiolite study at peak stress was obtained. Interpretation: Rest and stress SPECT Cardiolite nuclear imaging status post realignment, normalization, and attenuation correction, demonstrates the appearance of areas of extra cardiac/gastrointestinal tracer uptake near the inferior segments. There was diminished to absence of tracer uptake in portions of the mid to distal anterior segments, distal anterolateral/inferolateral segments, and the apical segments without significant change between rest and stress. There is diminished end systolic thickening and brightening in the aforementioned areas. The gated Cardiolite study demonstrates diminished myocardial thickening and inward wall motion in the aforementioned areas. The reported LVEF is 36%. Impression: 1. Rest and stress SPECT Cardiolite nuclear imaging demonstrate myocardial perfusion changes compatible with areas of previous myocardial injury/infarction involving portions of the anterior, anterolateral, and inferolateral segments as well as the apical segments with no myocardial perfusion changes considered diagnostic for associated stress induced myocardial ischemia. 2. The gated LVEF is a 36%. This note was generated using a voice recognition system and there may be incorrect words, spelling or punctuation that were not noted when reviewing the office note prior to saving.
--- NOTE | 2018-12-23 09:19 | STRESSREP_ITS ---
Stress Test Report Date: 12/23/2018 Procedure: Pharmacologic (regadenoson) evaluation Indications: CAD; status post PCI; status post CABG; ischemic mediated ca rdiomyopathy; ICD; preoperative cardiovascular evaluation Consent: Per the patient Procedure: The patient underwent pharmacologic (regadenoson) evaluation with a peak heart rate of 78 beats per minute (49% predicted maximal heart rate) with a peak blood pressure 130/84 mmHg. The base line ECG demonstrated normal sinus rhythm with a possible anterolateral [place] pattern of indeterminate age. The peak pharmacological ECG demonstrated no obvious ECG changes. There was an isolated PVC during infusion. There was no complaint of chest discomfort during pharmacologic infusion or recovery. The examination was discontinued secondary to completion of protocol. Impression: 1. Pharmacologic (regadenoson) evaluation 2. Peak pharmacologic ECG with no obvious ECG changes 3. Isolated PVCs during infusion 4. Nuclear images pending Myocardial perfusion imaging study: Technique: The patient was injected with 14.9 mci of technetium 99 M Cardiolite and subsequently rest SPECT Cardiolite nuclear imaging was obtained in the horizontal long, vertical long, and short axis views. The patient underwent pharmacologic (regadenoson) evaluation with a peak heart rate of 78 beats per minute (49% predicted maximal heart rate) with a peak blood pressure 130/84 mmHg. The patient was injected with 44.8 mci of technetium 99 M Cardiolite and subsequently stress SPECT Cardiolite nuclear imaging was obtained in the horizontal long, vertical long, and short axis views. A gated Cardiolite study at peak stress was obtained. Interpretation: Rest and stress SPECT Cardiolite nuclear imaging status post realignment, normalization, and attenuation correction, demonstrates the appearance of areas of extra cardiac/gastrointestinal tracer uptake near the inferior segments. There was diminished to absence of tracer uptake in portions of the mid to distal anterior segments, distal anterolateral/inferolateral segments, and the apical segments without significant change between rest and stress. There is diminished end systolic thickening and brightening in the aforementioned areas. The gated Cardiolite study demonstrates diminished myocardial thickening and inward wall motion in the aforementioned areas. The reported LVEF is 36%. Impression: 1. Rest and stress SPECT Cardiolite nuclear imaging demonstrate myocardial perfusion changes compatible with areas of previous myocardial injury/infarction involving portions of the anterior, anterolateral, and inferolateral segments as well as the apical segments with no myocardial perfusion changes considered diagnostic for associated stress induced myocardial ischemia. 2. The gated LVEF is a 36%. This note was generated using a voice recognition system and there may be incorrect words, spelling or punctuation that were not noted when reviewing the office note prior to saving.
--- OUTSIDE RECORDS SUMMARY | 2019-02-24 07:03 | XMS RPT_ITS ---
:1955 Author Organization OHIP Support Name Relationship Address Phone WHIT ISSA Unavailable Unavailable + [place] [address] DAVE ISSA Unavailable Unavailable + [place] [address] D Unavailable Unavailable Unavailable LUIS MANUEL, WHIT Unavailable . + [place] [address] DAVE ISSA Unavailable . + [place] [address] D Unavailable Unavailable Unavailable LUIS MANUEL, WHIT Unavailable Unavailable + [place] [address] DAVE ISSA Unavailable Unavailable + [place] [address] D Unavailable Unavailable Unavailable LUIS MANUEL, WHIT Unavailable Unavailable + [place] [address] DAVE ISSA Unavailable Unavailable + [place] [address] D Unavailable Unavailable Unavailable LUIS MANUEL, WHIT Unavailable 1 + [place] [address] DAVE ISSA Unavailable 1 + [place] [address] D Unavailable Unavailable Unavailable LUIS MANUEL, WHIT Unavailable 1 + [place] [address] DAVE ISSA Unavailable 1 + [place] [address] D Unavailable Unavailable Unavailable LUIS MANUEL, WHIT Unavailable 1 + [place] [address] DAVE ISSA Unavailable 1 + [place] [address] D Unavailable Unavailable Unavailable LUIS MANUEL, WHIT Unavailable Unavailable + DAVE ISSA Unavailable Unavailable + D Unavailable Unavailable Unavailable LUIS MANUEL, WHIT Unavailable . + [place] [address] DAVE ISSA Unavailable . + [place] [address] D Unavailable Unavailable Unavailable CHARLES ISSA Unavailable Unavailable + KELVIN ISSAN Unavailable . + [place] [address] JOSH ISSAFER Unavailable . + [place] [address] D Unavailable Unavailable Unavailable LUIS MANUEL WHIT Unavailable . + [place] [address] DAVE ISSA Unavailable . + [place] [address] D Unavailable Unavailable Unavailable LUIS MANUEL WHIT [...] Unavailable LUIS MANUEL WHIT Unavailable Unavailable + [place] [address] DAVE ISSA Unavailable Unavailable + [place] [address] D Unavailable Unavailable Unavailable LUIS MANUEL, WHIT [...] Unavailable Care Team Providers Name Role Phone Speedy Boswell Primary Care Unavailable Diaz Cortez Attending Unavailable Bethany Deng Attending Unavailable Speedy Boswell Referring Unavailable MoodispaSpeedy vail Attending Unavailable Moodispayared, Speedy Referring Unavailable Boswell, Pseedy Primary Care Unavailable Bethany Deng Attending Unavailable Boswell, Speedy Referring Unavailable Jd, Adán Admitting Unavailable JoPaco garcia Attending Unavailable Boswell, Speedy Primary Care Unavailable Mame, Rick Consulting Unavailable Jopperi, Paco Consulting Unavailable Jd, Adán Admitting Unavailable Jopperi, Paco Attending Unavailable Boswell, Speedy Primary Care Unavailable Jopperi, Paco Consulting Unavailable Jd, Adán Attending Unavailable Boswell, Speedy Primary Care Unavailable Boswell, Speedy Primary Care Unavailable Jd, Adán Admitting Unavailable Joppbrooklyn, Paco Attending Unavailable Mame, Rick Consulting Unavailable MoodSpeedy shields Attending Unavailable Moodispayared, Speedy Referring Unavailable Boswell, Speedy Primary Care Unavailable Divina Ahumada Attending Unavailable Glory, Ravi Santiago Attending Unavailable Glory, Ravi Santiago Referring Unavailable Boswell, Speedy Primary Care Unavailable MoodSpeedy shields Attending Unavailable Boswell, Speedy Referring Unavailable SowmyaBethany brewer Attending Unavailable Boswell, Speedy Referring Unavailable SowmyaBethany brewer Attending Unavailable Boswell, Speedy Referring Unavailable Boswell, Speedy Primary Care Unavailable Boswell, Speedy Primary Care Unavailable Noah Harrison Attending Unavailable Speedy Mtz Attending Unavailable Boswell, Speedy Referring Unavailable Boswell, Speedy Primary Care Unavailable Jose Vera Attending Unavailable Chuy, Jose Referring Unavailable Boswell, Speedy Primary Care Unavailable Glory, Ravi Santiago Attending Unavailable Glory, Ravi Santiago Referring Unavailable Boswell, Speedy Primary Care Unavailable Boswell, Speedy Primary Care Unavailable Jose Orozco Attending Unavailable Divina Giles Attending Unavailable Boswell, Speedy Referring Unavailable Jd, Adán Admitting Unavailable Jopperi, Paco Attending Unavailable Boswell, Speedy Primary Care Unavailable Mame, Rick Consulting Unavailable Jopperi, Paco Consulting Unavailable CHUY BURR, DR. GARCIA Attending Unavailable DR. JOSE VERA DO Primary Care Unavailable PROBLEMS PROBLEMS DATE TYPE CONDITION / CODE ATTENDING STATUS SOURCE 12/23/2018 Unknown I25.10 - Speedy Mtz Active [place] Atherosclerotic heart Community disease of [facility] coronary artery Repository without angina pectoris / I25.10(ICD-10) 12/23/2018 Unknown Z95.1 - Presence of Speedy Mtz Active [place] aortocoronary bypass Community graft / Z95.1(ICD-10) Hospital Repository 12/23/2018 Unknown Z95.5 - Presence of Speedy Mtz Active [place] coronary angioplasty Community implant and graft / Hospital Z95.5(ICD-10) Repository 10/02/2018 Unknown I89.0 - Lymphedema, Jose Orozco Active [place] not elsewhere Community classified / Hospital I89.0(ICD-10) Repository 08/27/2018 Unknown Z95.810 - Presence of Aurelia Denganne Active [place] automatic Community (implantable) cardiac Hospital defibrillator / Repository Z95.810(ICD-10) 08/27/2018 Unknown I25.5 - Ischemic SowmyaAurelia breweranne Active [place] cardiomyopathy / Community I25.5(ICD-10) Hospital Repository 04/26/2018 Unknown S43.409A - [place] Active [place] Unspecified sprain of [facility] unspecified shoulder Hospital joint, initial Repository encounter / S43.409A(ICD-10) 07/02/2018 Unknown L03.115 - Cellulitis Paco Butler Active [place] of right lower limb / Community L03.115(ICD-10) Hospital Repository 01/08/2018 Unknown E78.5 - Speedy Mtz Active [place] Hyperlipidemia, Community unspecified / Hospital E78.5(ICD-10) Repository PROCEDURES PROCEDURES No Procedure Records FoundRESULTS RESULTS ECHOCARDIOGRAM COMPLETE Observed: 12/23/2018 Status: F Source: [place] 7:46 PM [facility] HOSPITAL REPOSITORY [facility] Cardiovascular Services [address] [place] [address] Echo Complete W/ Contrast 12/23/18 0903 MR#: [id number] Acct: [id number] Name: ARISTIDES ISSA Rep #: [id number] : 1955 63 From: Speedy Mtz MD Attending Dr: Speedy Mtz MD Status: REG CLI Ordering Dr: Speedy Mtz MD Date: 12/23/18 Location: [facility] Sex: M C Admitted: Reason For [...] Mid-inferoseptal : Akinetic. Mid-anteroseptal : Akinetic. Anterior [place] : Akinetic. Inferior [place] : Akinetic. Lateral [place] : Dyskinetic. Septal [place] : Akinetic. Right Ventricle Normal RV size. [...] MD Date Dictated: 12/23/18902 Date Transcribed: 12/23/181945 Construction Field Engineer: Signed STRESS REPORT Observed: 12/23/2018 Status: F Source: [place] 9:20 AM [facility] [place] [address] MR#: [id number] Acct: [id number] Name: ARISTIDES ISSA Rep #: [id number] : 1955 63 From: Speedy Mtz MD [...] normal sinus rhythm with a possible anterolateral CO pattern of indeterminate age. The peak pharmacological [...] MD Date Dictated: 12/23/18910 Date Transcribed: 12/23/18910 Construction Field Engineer: PM Signed ABDOMEN/PELVIS WITHOUT Observed: 11/13/2018 Status: F Source: [place] CONT 3:05 PM [facility] REPOSITORY [facility] Imaging Services [address] [place] [address] Abdomen/Pelvis without Cont MR#: [id number] Acct: [id number] Name: ARISTIDES ISSA Rep #: [id number] : 1955 M 63 From: iNc Zaman MD PCP: Speedy Boswell MD Status: REG CLI Study: Abdomen/Pelvis without Cont Date of Exam: 11/13/18 Exam# [id number] Ordering Dr: Ravi Holder MD STUDY: CT [...] CC: Ravi Holder MD; Speedy Boswell MD Construction Field Engineer: Signed PSA,TOTAL - ANNUAL Collected: 11/06/2018 Status: F Source: [place] SCREEN 1:52 PM [facility] REPOSITORY TYPE CODE TESTS RESULT OUT OF RANGE REFERENCE UNITS LAB L501.9910 0.00-4.00 ng/mL Normal PSA,TOT 0.44 SCREEN Result Comment: This test was performed using the TPSA assay method for the [employer] chemistry system. Values obtained with different assay methods cannot be used interchangably. When changing PSA assays in the course of monitoring a patient, additional sequential testing should be carried out to confirm baseline values. Performed By: #### L501.9910 #### [facility] [address] [place], [address] CARDIOLOGY VISIT Observed: 10/09/2018 Status: F Source: [place] REPORT 5:11 PM [facility] REPOSITORY [facility] [address] [place] [address] OFFICE VISIT Date of Service: 10/09/18 MR#: [id number] Acct: [id number] Name: ARISTIDES ISSA Rep #: [id number] : 1955 Provider: Speedy Mtz MD Age/Sex: 63/M [place] [facility] [place]: Signed HPI HPI Details: ARISTIDES ISSA, [...] BID #180 tab 09/01/18 [Rx Confirmed 10/09/18] [facility] Medical History Chronic systolic congestive heart failure (Chronic) Atherosclerotic heart disease of [place] coronary artery without angina pectoris (Chronic) Shortness [...] Gastroenteritis (Inactive) History of 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 (Inactive) intermediate use of drug (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 Assessment AND Plan 1. Atherosclerosis of [place] coronary artery of [place] heart without angina pectoris I25.10 CABG x2- [...] Code Off vis,est,level 4 Diagnoses Atherosclerosis of [place] coronary artery of [place] heart without angina pectoris I25.10 [place] vs. transplanted heart: [place] heart Presence of stent in coronary artery Z95.5 Postsurgical aortocoronary bypass status Z95.1 Cardiomyopathy, ischemic I25.5 Chronic systolic CHF (congestive heart failure) I50.22 Automatic implantable cardioverter-defibrillator in situ Z95.810 Pure hypercholesterolemia E78.00 Hyperlipidemia type: pure hypercholesterolemia Essential hypertension I10 Hypertension type: essential hypertension Coding Level of Care Code Off vis,est,level 4 Diagnoses Atherosclerosis of [place] coronary artery of [place] heart without angina pectoris I25.10 [place] vs. transplanted heart: [place] heart Presence of stent in coronary artery Z95.5 Postsurgical aortocoronary bypass status Z95.1 Cardiomyopathy, ischemic I25.5 Chronic systolic CHF (congestive heart failure) I50.22 Automatic implantable cardioverter-defibrillator in situ Z95.810 Pure hypercholesterolemia E78.00 Hyperlipidemia type: pure hypercholesterolemia Essential hypertension I10 Hypertension type: essential hypertension 10/09/18 1711 <Electronically signed by Speedy Mtz MD> Date Speedy Mtz MD Cosigner Signature: Date (if applicable) CC: Speedy Boswell MD VENOUS DUPLEX LOWER Observed: 10/03/2018 Status: F Source: [place] EXTREMITY 7:40 AM [facility] REPOSITORY [facility] Cardiovascular Services [address] [place] [address] Venous Duplex US, Unilateral 10/02/18 1640 MR#: [id number] Acct: [id number] Name: ARISTIDES ISSA Rep #: [id number] : 1955 63 From: Wei Partida MD [...] Gabriel Bee RVT 10/03/18 0740 Date Wei Partida MD CC: Jose Orozco MD; Speedy Boswell MD Date Dictated: 10/02/18 1640 Date Transcribed: 10/03/18 0740 Construction Field Engineer: Signed EMERGENCY DEPARTMENT Observed: 10/02/2018 Status: F Source: [place] SUMMARY 10:28 PM [facility] REPOSITORY [facility] Medical Records Department [address] [place] [address] Emergency Department Summary 10/02/18 1721 MR#: [id number] Acct: [id number] Name: ARISTIDES ISSA Rep #: [id number] : 1955 63 From: Jose Orozco MD [...] the early s by Dr. Rahman in [place]. He states because of this, he had rather significant lymphedema of the leg. He states over the past few months, it is gotten mildly worse. He is actually scheduled to have an cxetz-fhv-nqdb amputation early next year for this. He [...] on chronic This note was generated with Me-Mover dictation software. It may contain incorrect words, spelling, and punctuation that were not noted in review of the chart prior to signing ED Disposition - Plan for ED Patient: Chief Complaint: Lower Extremity Injury Instructions: ED Leg Swelling Unilateral Prescriptions: Hydrocodone Bitart/Apap 5-325 [Burlison 5MG-325MG] 1 tab PO Q6H PRN PRN 3 Days #10 tab PRN Reason: Pain Referrals: Speedy Boswell MD [Primary Care Provider] - What to do if you have Problems For any increased pain, shortness of breath, bleeding, nausea or vomiting, chest pain, or any unexpected problems, contact your Primary Care Provider. Call [facility] ([phone]) or report to the closest Emergency Room. Call 911 if necessary. 10/02/18 1850 <Electronically signed by Jose Orozco MD> Date Jose Orozco MD Cosigner Signature (If Indicated): Date CC: Speedy Boswell MD PACEMAKER CHECK Observed: 08/26/2018 Status: F Source: [place] 2:22 PM [facility] REPOSITORY [facility] [address] [place] [address] Pacemaker Check Date of Service: 08/26/18 1328 MR#: [id number] Acct: [id number] Name: ARISTIDES ISSA Rep #: [id number] : 1955 From: Bethany Deng Age/Sex: 63/M [place] [facility] [place]: Signed Billing Codes ICD Device Billing: ICD Dev Prog Eval, Dual 08/26/18 1329 <Electronically signed by Bethany Deng > Date Bethany Deng 08/26/18 1422<Electronically signed by Speedy Mtz MD> Cosigner Signature: Date (if applicable) Speedy Mtz MD CC: OPERATIVE REPORT Observed: 07/28/2018 Status: F Source: [place] 11:30 AM [facility] REPOSITORY [facility] Medical Records Department [address] [place] [address] Operative Report 07/28/18 1116 MR#: [id number] Acct: [id number] Name: ARISTIDES ISSA Rep #: [id number] : 1955 63 From: Jose Vera DO PCP: Speedy Boswell MD Status: REG SDC Y Location: [place] [address] Operative Report Primary Surgeon/Physician: Jose Vera D.O. senior warehouse clerk: Torsten Janas, PA-C senior warehouse clerk: Pre-Operative Diagnosis: Right shoulder SAIS, AC arthrosis, [...] to recovery room in stable condition. My clinical research assistant, Lilliana, played a vital role in this procedure. He assisted with positioning, held the arm during the decompression and rotator cuff repair and ultimately closed the arthroscopy wounds and applied the sterile dressing and sling. 07/28/18 1130 <Electronically signed by Jose Vera DO> Date Jose eVra DO CC: Jose Vera DO; Speedy Boswell MD Signed CARDIOLOGY VISIT Observed: 07/22/2018 Status: F Source: [place] REPORT 11:38 AM [facility] REPOSITORY [facility] [address] [facility] [place] [address] OFFICE VISIT Date of Service: 07/21/18 MR#: [id number] Acct: [id number] Name: ARISTIDES ISSA Rep #: [id number] : 1955 Provider: Divina Giles Age/Sex: 63/M [place] [facility] [place]: Signed [facility] HPI Details: ARISTIDES ISSA, is a [...] Sitting Intake Visit Reasons: 6 M FU Fashion Patternmaker Required: No Accompanied by: none Is patient [...] coronary artery (Chronic) Atherosclerotic heart disease of [place] coronary artery without angina pectoris (Chronic) Shortness [...] Gastroenteritis (Inactive) History of 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 (Inactive) 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 Assessment AND Plan 1. Atherosclerosis of [place] coronary artery of [place] heart without angina pectoris I25.10 CABG x2- [...] Code Off vis,est,level 3 Diagnoses Atherosclerosis of [place] coronary artery of [place] heart without angina pectoris I25.10 [place] vs. transplanted heart: [place] heart Chronic systolic congestive heart failure I50.22 Automatic implantable cardioverter-defibrillator in situ Z95.810 Essential hypertension I10 Hypertension type: essential hypertension Pure hypercholesterolemia E78.00; E78.0 Hyperlipidemia type: pure hypercholesterolemia Coding Level of Care Code Off vis,est,level 3 Diagnoses Atherosclerosis of [place] coronary artery of [place] heart without angina pectoris I25.10 [place] vs. transplanted heart: [place] heart Chronic systolic congestive heart failure I50.22 Automatic implantable cardioverter-defibrillator in situ Z95.810 Essential hypertension I10 Hypertension type: essential hypertension Pure hypercholesterolemia E78.00; E78.0 Hyperlipidemia type: pure hypercholesterolemia 07/22/18 1138 <Electronically signed by Divina BRENNAN> Date Divina BRENNAN Cosigner Signature: Date (if applicable) CC: Speedy Boswell MD 12 LEAD EKG PERFORMED Observed: 07/21/2018 Status: F Source: [place] BY [place] 3:35 PM [facility] REPOSITORY [facility] [address] [place] [address] 12 Lead EKG performed by ARLETH 07/21/18 1534 MR#: [id number] Acct: [id number] Name: ARISTIDES ISSA Rep #: [id number] : 1955 63 From: Divina BRENNAN Attending Dr: Divina Giles Status: DEP AMB Ordering Dr: Divina Giles Date: 07/21/18 [place] [facility] Sex: M C Admitted: BMS/12 Lead EKG performed by [facility] ECG Report Interpretation Sinus Rhythm Left axis deviationLAFBOld anterior infarct. ABNORMAL Electronically signed on 07/21/2018 at 16:54 by Speedy Mtz Software Version 8610 07/21/18 1659 Date Divina BRENNAN CC: Speedy Boswell MD Date Dictated: 07/21/18 1534 Date Transcribed: 07/21/181533 Construction Field Engineer: BECKY Signed CBC-COMPLETE BLOOD CNT Collected: 07/21/2018 Status: F Source: [place] NO DIFF 2:45 PM [facility] REPOSITORY TYPE CODE TESTS RESULT OUT OF [...] MPV 9.5 Performed By: #### L100.0500 #### [facility] [place], [address] BASIC METABOLIC Collected: 07/21/2018 Status: F Source: [place] PROFILE (BMP) 2:45 PM [facility] REPOSITORY TYPE CODE TESTS RESULT OUT OF [...] GAP 12 Performed By: #### L500.2500 #### [facility] [address] [place], [place] [address]all [facility] [place], [address] US EXTREMITY Observed: 06/17/2018 Status: F Source: [...] EMERGENCY DEPARTMENT Observed: 06/09/2018 Status: F Source: [place] SUMMARY 2:21 AM [facility] REPOSITORY [facility] Medical Records Department [address] [place] [address] Emergency Department Summary 06/08/182 MR#: [id number] Acct: [id number] Name: ARISTIDES ISSA Rep #: [id number] : 1955 63 From: Diaz Cortez MD [...] impaction, resolved. This note was generated with Me-Mover dictation software. It may contain incorrect words, [...] your Primary Care Provider. Call [facility] ([phone]) or report to the closest Emergency Room. Call 911 if necessary. 06/09/18 0221 <Electronically signed by Diaz Cortez MD> Date Daiz oCrtez MD Cosigner Signature (If Indicated): Date CC: Speedy Boswell MD CBC W/DIFF, AUTOMATED Collected: 06/08/2018 Status: F Source: [place] 9:00 PM [facility] REPOSITORY TYPE CODE TESTS RESULT OUT OF [...] Lymph 1.17 Performed By: #### L100.0100 #### [facility] [address] [place], [address] BASIC METABOLIC Collected: 06/08/2018 Status: F Source: [place] PROFILE (BMP) 9:00 PM [facility] REPOSITORY TYPE CODE TESTS RESULT OUT OF [...] GAP 6 Performed By: #### L500.2500 #### [facility] [address] [place], [address] PACEMAKER CHECK Observed: 06/03/2018 Status: F Source: [place] 9:34 AM [facility] REPOSITORY [facility] [address] [place] [address] Pacemaker Check Date of Service: 05/26/18 1716 MR#: [id number] Acct: [id number] Name: ARISTIDES ISSA Rep #: [id number] : 1955 From: Bethany Deng Age/Sex: 63/M [place] [facility] [place]: Signed Comments Summary Comments: Dual Chamber ICD Evaluation: See attached scanned professional programmer analyst report. Interrogation shows numerous MS episodes, <1% total time and no VT/VF episodes since last check 12/20/17. Left pectoral pocket/incision w/o s/s of infection or erosion. Pt offers no cardiac complaints. Presenting rhythm shows NSR @ 72 bpm. SEAM STAYER=<1%. Estimated battery life 2.7 to 3.2 yrs. Lead impedances, sensing and pace/sense thresholds remain stable. No parameter changes made. Counters cleared. Next f/u appt scheduled for in 3 mos. Device Device Date Interviewed: 05/26/18 Follow-up Location: in office Interview Reason: routine follow up Juvenile Correctional Officer: [employer] Name: Kym BLACK Model: 2211-36 Serial #: [id number] Implant Date: 08/17/10 Year(s): 7 Implant Physician: Dr. Christian Sandoval Patient Characteristics Patient Substrate: Ischemic cardiomyopathy Ejection fraction %: 35 to 39 (12/06/2015) By: Echo Underlying rhythm: Sinus rhythm Pacemaker Dependent: No Device Characteristics Device: Dual Chamber Type: Implantable defibrillator Remote Follow-Up: No Device Physical Exam Yes Incision well healed Leads Lead #1 Juvenile Correctional Officer Lead 1: [employer] Model Lead 1: 1888TC/52 Serial# Lead 1: [id number] Date Implanted Lead 1: 08/17/10 Position Lead 1: RA Lead #2 Juvenile Correctional Officer Lead 2: [employer] Model Lead 2: 56544/60 Serial# Lead 2: [id number] Date Implanted Lead 2: 08/17/10 Position Lead [...] congestive heart failure I50.22 3. Atherosclerosis of [place] coronary artery of [place] heart without angina pectoris I25.10 CABG x2- PARK to LAD, ASRIAH to OM 06/01/05; PTCA/stent to prox LAD 02/02/05; PTCA/stent instent restenosis of prox LAD 10/15/13 4. Ischemic cardiomyopathy I25.5 06/02/182001 <Electronically signed by Bethany Deng > Date Bethany Deng 06/03/18 0934<Electronically signed by Speedy Mtz MD> Cosigner Signature: Date (if applicable) Speedy Mtz MD CC: DISCHARGE INSTRUCTION Observed: 04/26/2018 Status: F Source: [place] 11:26 AM [facility] REPOSITORY [facility] Medical Records Department [address] [place] [address] Discharge Instruction 04/26/18 1124 MR#: [id number] Acct: [id number] Name: ARISTIDES ISSA Rep #: [id number] : 1955 63 From: Noah Harrison DO PCP: Speedy Boswell MD Status: REG ER ED Disposition - Plan for ED Patient: Chief Complaint: Upper Extremity Injury Instructions: ED Sprain Shoulder Prescriptions: Hydrocodone/Acetaminophen [Burlison 5-325 Tablet] 1 - 2 ea PO [...] your Primary Care Provider. Call [facility] ([phone]) or report to the closest Emergency Room. Call 911 if necessary. 04/26/18 1126 <Electronically signed by Noah Harrison DO> Date Noah Harrison DO Cosigner Signature (If Indicated): Date CC: Speedy Boswell MD EMERGENCY DEPARTMENT Observed: 04/26/2018 Status: F Source: [place] SUMMARY 11:23 AM [facility] REPOSITORY [facility] Medical Records Department [address] [facility] [place] [place] [address] Emergency Department Summary 04/26/18 1121 MR#: [id number] Acct: [id number] Name: ARISTIDES ISSA Rep #: [id number] : 1955 63 From: Noah Harrison DO [...] Treatment Plan: [Patient given a prescription for Burlison for pain. Patient will be referred to orthopedics on-call.] Disposition: [Discharged home in stable condition] Impression: [Right shoulder strain possible internal derangement] This note was generated with Me-Mover dictation software. It may contain incorrect words, [...] your Primary Care Provider. Call [facility] ([phone]) or report to the closest Emergency Room. Call 911 if necessary. 04/26/18 1123 <Electronically signed by Noah Harrison DO> Date Noah Harrison DO Cosigner Signature (If Indicated): Date CC: Speedy Boswell MD SHOULDER MIN 2 VIEWS Observed: 04/26/2018 Status: F Source: [place] 10:51 AM [facility] REPOSITORY [facility] Imaging Services [address] [place] [address] Shoulder min 2 Views MR#: [id number] Acct: [id number] Name: ARISTIDES ISSA Rep #: [id number] : 1955 M 63 From: Reginald Stack MD PCP: Speedy Boswell MD Status: PRE ER Study: Shoulder min 2 Views Date of Exam: 04/26/18 Exam# [id number] Ordering Dr: Noah Harrison DO STUDY: X-RAY [...] CC: Speedy Boswell MD; Noah Harrison DO Construction Field Engineer: Signed EMERGENCY DEPARTMENT Observed: 04/06/2018 Status: F Source: [place] SUMMARY 4:38 PM [facility] REPOSITORY [facility] Medical Records Department [address] [place] [address] Emergency Department Summary 04/01/181944 MR#: [id number] Acct: [id number] Name: ARISTIDES ISSA Rep #: [id number] : 1955 62 From: Kenneth Quezada PCP: [...] lower extremity This note was generated with Me-Mover dictation software. It may contain incorrect words, spelling, and punctuation that were not noted in review of the chart prior to signing ED Disposition - Plan for ED Patient: Disposition: Acute Care Hospital [facility] Chief Complaint: Cellulitis Diagnosis: Cellulitis of right lower extremity What to do if you have Problems For any increased pain, shortness of breath, bleeding, nausea or vomiting, chest pain, or any unexpected problems, contact your Primary Care Provider. Call [facility] ([phone]) or report to the closest Emergency Room. Call 911 if necessary. 04/06/18 0335 <Electronically signed by Kenneth Quezada> Date Kenneth Quezada Cosigner Signature (If Indicated): Date CC: Speedy Boswell MD DISCHARGE SUMMARY Observed: 04/04/2018 Status: F Source: [place] 10:57 AM [facility] REPOSITORY [facility] Medical Records Department [address] [place] [address] Discharge Summary 04/04/18 1054 MR#: [id number] Acct: [id number] Name: ARISTIDES ISSA Rep #: [id number] : 1955 62 From: Paco Butler DO PCP: Speedy Boswell MD Status: ADM IN Y Location: [place] 164137-1 Discharge Date and Diagnosis - Problem List [...] prox LAD 10/15/13 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 Seen [...] applicable Code Visit Inpatient E AND M: 48007 Disch Hosp 04/04/18 1057 <Electronically signed by Paco Butler DO> Date Paco Osheaigner Signature (if applicable): Date CC: Paco Butler DO; Speedy Boswell MD Signed DISCHARGE INSTRUCTION Observed: 04/04/2018 Status: F Source: NAT[place]IE 10:54 AM [facility] REPOSITORY [facility] Medical Records Department [address] [place] [address] Instructions for Home/Discharge Instructions 04/04/18 1052 MR#: [id number] Acct: [id number] Name: ARISTIDES ISSA Rep #: [id number] : 1955 62 From: Paco Butler DO [...] 04/04/2018 Status: F Source: [place] 6:50 AM [facility] REPOSITORY TYPE CODE TESTS RESULT OUT OF RANGE REFERENCE UNITS LAB L501.080 70-110 mg/dL Normal BEDSIDE GLU 102 Result Comment: MANAGEMENT OF PATIENT CARE PER NURSING PROTOCOL Performed By: #### L501.080 #### [facility] Point of Care [address] [place], [place] [address] BEDSIDE GLUCOSE Collected: 04/03/2018 Status: F Source: [place] 10:43 PM [facility] REPOSITORY TYPE CODE TESTS RESULT OUT OF REFERENCE UNITS RANGE LAB L501.080 70-110 mg/dL High BEDSIDE GLU 132 Result Comment: MANAGEMENT OF PATIENT CARE PER NURSING PROTOCOL Performed By: #### L501.080 #### [facility] Point of Care [address] [place], [place] [address] BEDSIDE GLUCOSE Collected: 04/03/2018 Status: F Source: [place] 4:54 PM [facility] REPOSITORY TYPE CODE TESTS RESULT OUT OF RANGE REFERENCE UNITS LAB L501.080 70-110 mg/dL Normal BEDSIDE GLU 98 Result Comment: MANAGEMENT OF PATIENT CARE PER NURSING PROTOCOL Performed By: #### L501.080 #### [facility] Point of Care [address] [place], [place] [address] BEDSIDE GLUCOSE Collected: 04/03/2018 Status: F Source: [place] 11:35 AM [facility] REPOSITORY TYPE CODE TESTS RESULT OUT OF REFERENCE UNITS RANGE LAB L501.080 70-110 mg/dL High BEDSIDE GLU 123 Result Comment: MANAGEMENT OF PATIENT CARE PER NURSING PROTOCOL Performed By: #### L501.080 #### [facility] Point of Care [address] [place] [address] BEDSIDE GLUCOSE Collected: 04/03/2018 Status: F Source: [place] 6:47 AM [facility] REPOSITORY TYPE CODE TESTS RESULT OUT OF REFERENCE UNITS RANGE LAB L501.080 70-110 mg/dL High BEDSIDE GLU 147 Result Comment: MANAGEMENT OF PATIENT CARE PER NURSING PROTOCOL Performed By: #### L501.080 #### [facility] Point of Care [address] [place] [address] BEDSIDE GLUCOSE Collected: 04/02/2018 Status: F Source: [place] 10:38 PM [facility] REPOSITORY TYPE CODE TESTS RESULT OUT OF REFERENCE UNITS RANGE LAB L501.080 70-110 mg/dL High BEDSIDE GLU 116 Result Comment: MANAGEMENT OF PATIENT CARE PER NURSING PROTOCOL Performed By: #### L501.080 #### [facility] Point of Care [address] [place] [address] VENOUS DUPLEX LOWER Observed: 04/02/2018 Status: F Source: [place]IE EXTREMITY 2:17 PM [facility] REPOSITORY [facility] Cardiovascular Services [address] [place] [address] Venous Duplex US - Noe Extrem 04/02/18 1125 MR#: [id number] Acct: [id number] Name: LUIS MANUELARISTIDES Carlita Rep #: [id number] : 1955 62 From: Wei Partida MD [...] Dictated: 04/02/18 1125 Date Transcribed: 04/02/18 1416 Construction Field Engineer: Signed CONSULTATION Observed: 04/02/2018 Status: F Source: [place] 1:34 PM [facility] REPOSITORY [facility] Medical Records Department [address] [place] [address] Consultation 04/02/18 1328 MR#: [id number] Acct: [id number] Name: ARISTIDES ISSA Rep #: [id number] : 1955 62 From: Rick Vilchis MD PCP: Speedy Boswell MD Status: ADM IN Y [place] [facility] [place] CV765-2 Problem List (1) Cellulitis of right lower [...] prox LAD 10/15/13 Atherosclerotic heart disease of [place] coronary artery without angina pectoris (Chronic) CABG [...] BEDSIDE GLUCOSE Collected: 04/02/2018 Status: F Source: [place] 6:25 AM [facility] REPOSITORY TYPE CODE TESTS RESULT OUT OF REFERENCE UNITS RANGE LAB L501.080 70-110 mg/dL High BEDSIDE GLU 130 Result Comment: MANAGEMENT OF PATIENT CARE PER NURSING PROTOCOL Performed By: #### L501.080 #### [facility] Point of Care [facility] [place] [address] CBC W/DIFF, AUTOMATED Collected: 04/02/2018 Status: F Source: [place] 6:04 AM [facility] REPOSITORY TYPE CODE TESTS RESULT OUT OF [...] LYMPHOPENIA NOTED Performed By: #### L100.0100 #### [facility] [address] [place], [address] BASIC METABOLIC Collected: 04/02/2018 Status: F Source: [place] PROFILE ([facility]) 6:04 AM [facility] REPOSITORY TYPE CODE TESTS RESULT OUT OF [...] GAP 5 Performed By: #### L500.2500 #### [facility] [address] [place], [address] BEDSIDE GLUCOSE Collected: 04/01/2018 Status: F Source: [place] 10:51 PM [facility] REPOSITORY TYPE CODE TESTS RESULT OUT OF REFERENCE UNITS RANGE LAB L501.080 70-110 mg/dL High BEDSIDE GLU 131 Result Comment: MANAGEMENT OF PATIENT CARE PER NURSING PROTOCOL Performed By: #### L501.080 #### [facility] Point of Care [address] [place] [address] HISTORY AND PHYSICAL Observed: 04/01/2018 Status: F Source: [place] EXAM 9:26 PM [facility] REPOSITORY [facility] Medical Records Department [address] [place] [address] History and Physical 04/01/182111 MR#: [id number] Acct: [id number] Name: ARISTIDES ISSA Rep #: [id number] : 1955 62 From: Adán Miles MD [...] LAD 10/15/13 (6) 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 Code Visit Inpatient E AND M: 02608 Init Hosp L3 04/01/182125 <Electronically signed by Adán Miles MD> Date Adán Miles MD Cosigner Signature: Date (if applicable) CC: Speedy Boswell MD; Adán Miles MD Signed Observed: 04/01/2018 Status: F Source: [place]IE CULTURE, BLOOD (WB) 8:26 PM [facility] HOSPITAL REPOSITORY BC No growth in 5 days. Performed By: #### M200.1000 #### [facility] [address] [place], [address] CBC W/DIFF, AUTOMATED Collected: 04/01/2018 Status: F Source: [place] 8:14 PM [facility] REPOSITORY TYPE CODE TESTS RESULT OUT OF [...] Lymph 1.09 Performed By: #### L100.0100 #### [facility] [address] [place], [address] LACTIC ACID Collected: 04/01/2018 Status: F Source: [place] 8:14 PM [facility] REPOSITORY Order Comment: Yes/No query for Sepsis Lactate Rule Y TYPE CODE TESTS RESULT OUT OF RANGE REFERENCE UNITS LAB L503.6005 0.4-2.0 mmol/L Normal LACTIC ACID 1.3 Performed By: #### L503.6005 #### [facility] [address] [place] [place], [address] PROTHROMBIN TIME W/INR Collected: 04/01/2018 Status: F Source: [place] 8:14 PM [facility] REPOSITORY TYPE CODE TESTS RESULT OUT OF RANGE REFERENCE UNITS LAB L300.4150 11.7-14.9 SECONDS Normal PROTIME 14.9 LAB L300.4200 Normal INR 1.2 Performed By: #### L300.3900, L300.4310 #### [facility] [address] [place], [address] PARTIAL THROMBOPLAST Collected: 04/01/2018 Status: F Source: [place] TIME 8:14 PM [facility] REPOSITORY TYPE CODE TESTS RESULT OUT OF RANGE REFERENCE UNITS LAB L300.4310 24.1-36.2 Seconds Normal PTT 29.8 Performed By: #### L300.3900, L300.4310 #### [facility] [address] [place], [address] COMPREHENSIVE METABOLIC Collected: 04/01/2018 Status: F Source: [place] PROFIL 8:14 PM [facility] REPOSITORY TYPE CODE TESTS RESULT OUT OF [...] GAP 9 Performed By: #### L500.4050 #### [facility] [address] [place], [place], [address] ERYTHROCYTE SED RATE Collected: 04/01/2018 Status: F Source: [place] 8:14 PM [facility] REPOSITORY TYPE CODE TESTS RESULT OUT OF RANGE REFERENCE UNITS LAB L102.0000 0-20 mm/hr High SED RATE 32 Performed By: #### L101.9900 #### [facility] [address] [place], [address] HEMOGLOBIN A1C Collected: 04/01/2018 Status: F Source: [place] 8:14 PM [facility] REPOSITORY TYPE CODE TESTS RESULT OUT OF RANGE REFERENCE UNITS LAB L501.9985 4.2-6.3 % Normal HGB A1C 5.5 Performed By: #### L501.9985 #### [facility] [address] [place], [address] Observed: 04/01/2018 Status: F Source: [place]IE CULTURE, BLOOD (WB) 8:14 PM [facility] REPOSITORY BC No growth in 5 days. Performed By: #### M200.1000 #### [facility] [address] [place], [address] COMPREHENSIVE METABOLIC Collected: 02/17/2018 Status: F Source: [place] PROFIL 3:16 PM [facility] REPOSITORY TYPE CODE TESTS RESULT OUT OF [...] Performed By: #### L500.4050, L500.4100, L501.4700 #### [facility] [address] [place], [address] LIPID PROFILE Collected: 02/17/2018 Status: F Source: [place] 3:16 PM [facility] REPOSITORY TYPE CODE TESTS RESULT OUT OF [...] Performed By: #### L500.4050, L500.4100, L501.4700 #### [facility] [address] [place], [address] BILIRUBIN, DIRECT Collected: 02/17/2018 Status: F Source: [place] 3:16 PM [facility] REPOSITORY TYPE CODE TESTS RESULT OUT OF RANGE REFERENCE UNITS LAB L501.4700 0.00-0.30 mg/dL Normal D BILI 0.12 Performed By: #### L500.4050, L500.4100, L501.4700 #### [facility] [address] [place], [address] CARDIOLOGY VISIT Observed: 01/08/2018 Status: F Source: [place] REPORT 6:06 PM [facility] REPOSITORY [facility] [address] [place] [address] OFFICE VISIT Date of Service: 01/08/18 MR#: [id number] Acct: [id number] Name: ARISTIDES ISSA Rep #: [id number] : 1955 Provider: Speedy Mtz MD Age/Sex: 62/M Location[place] [facility] [place] Status: Signed HPI HPI Details: ARISTIDES ISSA, is a 62 M who presents to the office today for for outpatient cardiovascular follow-up of his history of underlying CAD, CO, CABG, LAD PTCA/stent, ischemic mediated cardiomyopathy, chronic [...] had a diagnostic cardiac catheterization performed at [facility] on 12/29/2013. The results are as noted below. Final impression: 1. Borderline elevation of the left ventricular end-diastolic pressure 2. Left ventricle: A. Hypokinesis of the anterior segment, akinesis of the anteroapical segment, dyskinesis of the inferior apical segment, hypokinesis of the mid inferior segment B, Estimated LVEF of 30% 3. Left main coronary artery: A. Proximal tonawanda band without angiographically significant appearing disease 4. [...] the LAD receives predominant flow via the tonawanda system 8. Free SARIAH arising from the PARK to an OM: A. Free SARIAH arising from the PARK to an OM is not visualized at this time His most recent PCI procedure was performed at [facility] on 10/15/2013. The results are as noted [...] Current DR model #2211-3 6: Serial number: [id number]: Implanted on 08/17/2010: It is a dual-chamber [...] #0 05/28/17 [Rx Confirmed 01/08/18] L. 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 Atherosclerosis of ton[place] coronary artery of ton[place] heart without angina pectoris I25.10 CABG x2- PARK to LAD, SAIRAH to OM 06/01/05; PTCA/stent to prox LAD [...] prior to saving. 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 transplanted heart: [place] heart Postsurgical aortocoronary bypass status Z95.1 Presence of stent in coronary artery Z95.5 Cardiomyopathy, ischemic I25.5 Chronic systolic CHF (congestive heart failure) I50.22 Automatic implantable cardioverter-defibrillator in situ Z95.810 Hyperlipidemia, unspecified hyperlipidemia type E78.5 Hyperlipidemia type: unspecified Essential hypertension I10 Hypertension type: essential hypertension Coding Level of Care Code Off vis,est,level 4 Diagnoses Atherosclerosis of [place] coronary artery of [place] heart without angina pectoris I25.10 [place] vs. transplanted heart: [place] heart Postsurgical aortocoronary bypass status Z95.1 Presence [...] SEVERITY SOURCE 10/09/2018 Drug No Known Unknown [facility] Allergy/4160 Allergies/F00 [facility] 16397(SNOMED 8999751(RXNOR Repository CT) M) ENCOUNTERS ENCOUNTERS ADMIT/DISCHARGE ACCOUNT NUMBER ADMITTING ENCOUNTER LOCATION SOURCE CLASS 12/23/2018 [id number] Ambulatory [facility] ding:[facility] Repository 12/04/2018 [id number] Ambulatory BMSBuilding: Natalie BMS.[facility] Repository 11/13/2018 [id number] Ambulatory [facility] ding:CT Repository 11/06/2018 [id number] Ambulatory [facility] ding:LAB Repository 10/09/2018/10/09/20 [id number] Ambulatory BMSBuilding: Natalie 18 BMS.[facility] Repository 10/02/2018/10/02/20 [id number] Emergency [address] ding:ED Repository 08/26/2018/08/26/20 [id number] Ambulatory BMSBuilding: Natalie 18 BMS.[facility] Repository 07/28/2018/07/28/20 [id number] Ambulatory [address] ding:SDC Repository 07/21/2018/07/21/20 [id number] Ambulatory BMSBuilding: Natalie 18 BMS.[facility] Repository 06/17/2018/06/17/20 [id number] Ambulatory AULTMANBuild [place] 18 ing:[facility] Repository 06/08/2018/06/08/20 [id number] Emergency [place] ding:ED Repository 05/26/2018/05/26/20 [id number] Ambulatory BMSBuilding: Natalie 18 BMS.[facility] Repository 04/26/2018/04/26/20 [id number] Emergency [address] ding:ED Repository 04/02/2018 [id number] Ambulatory BMSBuilding: [place] BMS.[facility] Repository 04/01/2018 [id number] [facility], Ambulatory BMSBuilding: [place] Adán BMS.[facility] Repository 04/01/2018 [id number] Jd, Ambulatory BMSBuilding: Natalie Adán BMS.[facility] Repository 04/01/2018/04/04/20 [id number] Jd, Inpatient [place] 18 Adán Encounter [facility] ding:[id number] Repository : LP118Zgb: 1 04/01/2018 [id number] [facility], Ambulatory BMSBuilding: [place] Adán BMS.[facility] Repository 04/01/2018 [id number] Ambulatory BMSBuilding: [place] BMS.[facility] Repository 02/17/2018 [id number] Ambulatory [facility] ding:LAB Repository 01/08/2018/01/08/20 [id number] Ambulatory BMSBuilding: [place] 18 BMS.[facility] Repository 01/08/2018 [id number] Ambulatory BMSBuilding: [place] BMS.[facility] Repository PAYERS PAYERS ENCOUNTER GUARANTOR PAYER SUBSCRIBER SOURCE 12/23/2018 ARISTIDES Zazueta Primary ARISTIDES [id number] Insurance:MEDICARE CARLTONDOB: [facility]ly [facility] PART A [facility] [id number] Number: Repository [address]Wca: [phone]) [id number] [phone] () Date:2018-10-10 12/23/2018 Secondary ARISTIDES S Natalie [facility] CARLTONDOB: [facility] Number: [id number] [facility] [id number] Repository Date:4567-27-82[address]QZTMKDFDPWL, [place] [address]FJ: 12/23/2018 Tertiary NOT GIVENUNK [place] Insurance:SELF PAY [facility] Number: Effective Repository Date:2018-10-10 12/04/2018 ARISTIDES S Primary ARISTIDES [place] [id number] Insurance:[facility] CHILDRENNAPolicy [facility]LSAN [facility]DOB: [facility] Number: [id number], [place] [id number] Repository [address]Aly: (330) Date:3918-00-90[phone] () [place]FXZTTLNZTO, [place] [address]NM: 12/04/2018 Secondary ARISTIDES S Natalie Insurance:MEDICARE CARLTONDOB: Community PART A [facility] [id number] Hospital Number: Repository [id number] Date:2018-08-26 12/04/2018 Tertiary NOT GIVENUNK [place] Insurance:SELF PAY [facility] Number: Effective Repository Date:2018-11-28 11/13/2018 ARISTIDES S Primary ARISTIDES [id number] Insurance:MEDICARE CARLTONDOB: Community [place] PART A [facility] [id number], [place] Number: Repository [address]Ncc: 330 [id number] [phone] () Date:2018-11-06 11/13/2018 Secondary ARISTIDES S [place] Insurance:CIGNAPolicy CARLTONDOB: Community Number: [id number] Hospital [id number] Repository Date:6779-54-47[address]HYFLFJGXRJB, [place] [address]LF: 11/13/2018 Tertiary NOT GIVENUNK [place] Insurance:SELF PAY [facility] Number: Effective Repository Date:2018-11-06 11/06/2018 ARISTIDES S Primary ARISTIDES [place] [id number] Insurance:MEDICARE CARLTONDOB: Community [place] PART A [facility] [id number], [place] Number: Repository [address]Nnk: 330 [id number] [phone] () Date:2018-11-06 11/06/2018 Secondary ARISTIDES S [place] Insurance:CIGNAPolicy CARLTONDOB: Community Number: [id number] [facility] [id number] Repository Date:0763-86-57[address]FEBHOCBEBTK, [place] [address]KR: 11/06/2018 Tertiary NOT GIVENUNK [place] Insurance:SELF PAY [facility] Number: Effective Repository Date:2018-11-06 10/09/2018 ARISTIDES S Primary ARISTIDES [place] [id number] Insurance:MEDICARE CARLTONDOB: Community [place] PART A [facility] [id number], [place] Number: Repository [address]Bhu: 330 [id number] [phone] () Date:2018-09-23 10/09/2018 Secondary ARISTIDES S [place] Insurance:CIGNAPolicy CARLTONDOB: Community Number: [id number] Hospital [id number] Repository Date:3372-68-38BB [address]EYLFIKJGGSU, [place] [address]EV: 10/09/2018 Tertiary NOT GIVENUNK [place] Insurance:SELF PAY [facility] Number: Effective Repository Date:2018-10-03 10/02/2018 ARISTIDES S Primary ARISTIDES [place] [id number] Insurance:MEDICARE CARLTONDOB: Community [place] PART A [facility] [id number], [place] Number: Repository [id number]: 330 [id number] [phone] () Date:2018-10-02 10/02/2018 Secondary ARISTIDES S [place] Insurance:CIGNAPolicy CARLTONDOB: Community Number: [id number] Hospital [id number] Repository Date:3928-59-54DS [address]XCGHBPFOQWQ, [place] [address]PG: 10/02/2018 Tertiary NOT GIVENUNK [place] Insurance:SELF PAY [facility] Number: Effective Repository Date:2018-10-02 08/26/2018 ARISTIDES S Primary ARISTIDES Machucaoster [id number] Insurance:CIGNAPolicy CARLTONDOB: [facility] Number: [id number], [place] [id number] Repository [address]Owo: 330) Date:7177-18-32[phone] () 696696KWULSGHGWCG, [place] [address]GI: 08/26/2018 Secondary NOT GIVENUNK [place] Insurance:SELF PAY [facility] Number: Effective Repository Date:2018-08-26 07/28/2018 ARISTIDES [facility] ARISTIDES Zazueta [place] [id number] Insurance:CIGNAPolicy [facility] CORPORATIONDOB: [facility] Number: [id number], [place] [id number] Repository [address]Pke: (330) Date:6326-28-00[phone] () [address]308[address]ZZHNWGJHGNS, [place] [address]VN: 07/28/2018 Secondary NOT GIVENUNK [place] Insurance:SELF PAY [facility] Number: Effective Repository Date:2018-06-25 07/21/2018 ARISTIDES Zazueta [facility] ARISTIDES Zazueta [facility]2650 Insurance:CIGNAPolicy [place]: [facility] Number: [id number], [place] [id number] Repository [address]Por: (330) Date:8309-98-63ZB [phone] () 537644PMZUEZDUNRK, [place] [address]VF: 07/21/2018 Secondary NOT GIVENUNK [place] Insurance:SELF PAY [facility] Number: Effective Repository Date:2018-07-18 06/17/2018 [facility] Carlita [facility] Network[facility]: Insurance:[facility]: [facility] [id number] Number: [id number] [place] [address] [id number] [address] [place] [address] Date:2018-06-13 [place] [address]~[id number]@ [id number] [id number]: (176) Rebecca: (330) Name:TARIK [phone] () [address]Gfcrkxysmqq, [place] ()Tel: [phone]) [phone]: (wp) [phone] 06/08/2018 ARISTIDES [facility] ARISTIDES [place] [id number] Insurance:CIGNAPolicy CARLTONDOB: Community [place] Number: [id number], [place] [id number] Repository [address]Xca: (330) Date:1463-73-17AF [phone] () [id number], [place] [address]LO: 06/08/2018 Secondary NOT GIVENUNK [place] Insurance:SELF PAY [facility] Number: Effective Repository Date:2018-06-08 05/26/2018 ARISTIDES S Primary ARISTIDES Estrada [id number] Insurance:CIGNAPolicy CARLTONDOB: [facility] [place] Number: [id number], [place] [id number] Repository [address]Ybk: (330) Date:6380-14-46SB [phone] () [id number], [place] [address]YB: 05/26/2018 Secondary NOT GIVENUNK [place] Insurance:SELF PAY [facility] Number: Effective Repository Date:2018-05-26 04/26/2018 ARISTIDES S Primary ARISTIDES Estrada [id number] Insurance:CIGNAPolicy CAR[place]DOB: Community [place]: [id number], [place] [id number] Repository [address]Keb: (330) Date:0777-67-35ZZ [phone] () [id number], [place] [address]XD: 04/26/2018 Secondary NOT GIVENUNK [place] Insurance:SELF PAY [facility] Number: Effective Repository Date:2018-04-26 04/02/2018 ARISTIDES S Primary ARISTIDES Estrada [id number] Insurance:CIGNAPolicy CARLTONDOB: [facility] Number: [id number], [place] [id number] Repository [address]Tsk: (330) Date:8777-47-91WZ [phone] () [id number], [place] [address]PL: 04/02/2018 Secondary NOT GIVENUNK [place] Insurance:SELF PAY [facility] Number: Effective Repository Date:2017-12-20 04/01/2018 ARISTIDES S Primary ARISTIDES Estrada [id number] Insurance:CIGNAPolicy CARLTONDOB: [facility] Number: [id number], [place] [id number] Repository [address]Nqx: (330) Date:3616-09-36TI [phone] () [id number], [place] [address]DD: 04/01/2018 Secondary NOT GIVENUNK [place] Insurance:SELF PAY [facility] Number: Effective Repository Date:2018-04-01 04/01/2018 ARISTIDES S Primary ARISTIDES Estrada [id number] Insurance:CIGNAPolicy CARLTONDOB: [facility] Number: [id number], [place] [id number] Repository [address]Qlk: (330) Date:7471-16-93RC [phone] () [id number], [place] [address]ED: 04/01/2018 Secondary NOT GIVENUNK [place] Insurance:SELF PAY [facility] Number: Effective Repository Date:2018-04-01 04/01/2018 ARISTIDES S Primary ARISTIDES Estrada [id number] Insurance:MEDICARE A CARLTONDOB: [facility] Number: [id number], [place] [id number] Repository [address]Ncz: (330) Date:2018-04-01 [phone] () 04/01/2018 Secondary ARISTIDES Zazueta Natalie Insurance:CIGNAPolicy CARLTONDOB: [facility] Number: [id number] Hospital [id number] Repository Date:5255-93-38XC [address]CYXBJDFAXTQ, [place] [address]HW: 04/01/2018 Tertiary NOT GIVENUNK [place] Insurance:SELF PAY [facility] Number: Effective Repository Date:2018-04-01 04/01/2018 ARISTIDES S Primary ARISTIDES Estrada [id number] Insurance:CIGNAPolicy CARLTONDOB: Community [place] Number: [id number], [place] [id number] Repository [address]Cpd: (330) Date:0133-49-15MW [phone] () 921990OVTPLAVUYPS, [place] [address]KB: 04/01/2018 Secondary NOT GIVENUNK [place] Insurance:SELF PAY [facility] Number: Effective Repository Date:2018-04-01 04/01/2018 ARISTIDES S Primary ARISTIDES S [place] [id number] Insurance:CIGNAPolicy CARLTONDOB: [facility] Number: [id number], [place] [id number] Repository [address]Eao: (330) Date:8438-35-35PZ [phone] () [id number], [place] [address]PI: 04/01/2018 Secondary NOT GIVENUNK [place] Insurance:SELF PAY [facility] Number: Effective Repository Date:2018-04-01 02/17/2018 ARISTIDES S Primary ARISTIDES S Natalie [id number] Insurance:CIGNAPolicy CARLTONDOB: [facility] Number: [id number], [place] [id number] Repository [address]Ijk: (330) Date:4551-32-56LG [phone] () 417592BXGBKBPEUUO, [place] [address]GS: 02/17/2018 Secondary NOT GIVENUNK [place] Insurance:SELF PAY [facility] Number: Effective Repository Date:2018-02-17 01/08/2018 ARISTIDES S Primary ARISTIDES S [place] [id number] Insurance:CIGNAPolicy CARLTONDOB: [facility] Number: [id number], [place] [id number] Repository [address]Nbb: (330) Date:7710-94-63CU [phone] () 995817LAWIHSDBQTU, [place] [address]LV: 01/08/2018 Secondary NOT GIVENUNK [place] Insurance:SELF PAY [facility] Number: Effective Repository Date:2017-11-09 01/08/2018 ARISTIDES Zazueta Primary ARISTIDES Zazueta Natalie [id number] Insurance:Ene SYEDB: [facility] Number: [id number], [place] [id number] Repository [address]Fki: (330) Date:0551-95-61RJ [phone] () [id number], [place] [address]VL: 01/08/2018 Secondary NOT GIVENUNK [place] Insurance:SELF PAY [facility] Number: Effective Repository Date:2018-01-08
== END ==
PROVIDERS: Family Provider Family Medicine; PCP Family Medicine; Referring Provider Internal Medicine Cardiovascular Disease; Visit Provider Internal Medicine Cardiovascular Disease
DX: I25.10 Atherosclerotic heart disease of native coronary artery without angina pectoris (principal); I37.1 Nonrheumatic pulmonary valve insufficiency
CPT/HCPCS: 78452; 93017; 93306; A9500; Q9957; A4216; C8929; J2785

== ENCOUNTER 2019-01-30 12:45 | Inpatient (IN) | payer MEDICARE, OTHER, SELFPAY ==
[2019-01-21 13:32] VITALS: BMI 45.7
[2019-01-30 14:37] VITALS: BP 118/68; PULSE 67; RESP 16; TEMP 36.3; O2SAT 94; BMI 51.5; BMI 51.6
--- NOTE | 2019-01-30 14:38 | HP.PCM_ITS ---
Problem List (1) Debility Status: Acute (2) Automatic implantable cardioverter-defibrillator in situ Status: Chronic (3) Chronic systolic congestive heart failure Status: Chronic (4) Presence of stent in coronary artery Status: Chronic Comment: PTCA/stent to prox LAD 02/02/05; PTCA/stent instent restenosis of prox LAD 10/15/13 (5) Atherosclerotic heart disease of [place] coronary artery without angina pectoris Status: Chronic Qualifiers: Comment: CABG x2- PARK to LAD, SARIAH to OM 06/01/05; PTCA/stent to prox LAD 02/02/05; PTCA/stent instent restenosis of prox LAD 10/15/13 (6) Postsurgical aortocoronary bypass status Status: Chronic Comment: CABG x2- PARK to LAD, SARIAH to OM 06/01/05 (7) History of tobacco abuse Status: Acute (8) Ischemic cardiomyopathy Status: Chronic (9) Hyperlipidemia Status: Chronic Qualifiers: (10) Hypertension Status: Chronic Qualifiers: (11) ICD (implantable cardioverter-defibrillator) in place Status: Chronic Comment: ICD Implant 2009 (12) Above knee amputation of right lower extremity Status: Acute History of Present Illness Date of Admission: 01/30/19 Chief Complaint: Debility post Right AKA The patient is a 63 year old M with PMH HTN, HLD, H/O myxoid sarcoma right thigh s/p chemotherapy/radiation 1996, complicated by chronic right LE lymphedema, CAD s/p stent, CABG, S/P AICD, TARAN on CPAP, morbid obesity admitted to [facility] on 01/30/19, with debility s/p Right AKA by Dr. Rahman on 01/26/19 and flap closure 01/28/19, for > 3 hrs therapy daily with a goal of returning home at or near his prior level of functional independence. Per patient he had chronic right LE lymphedema for which right AKA was done, per patient he lives with his daughter, son, used cane to ambulate previously, did drive, lives in a ranch house, has a ramp to go into the house, denies any frequent falls. He denies severe pain in t he stump at present, denies any focal motor weakness, has chronic right thigh sensory loss per patient, denies any visual disturbances, chest pain, fever or speech disturbances. [] Past Medical History Past Medical History (Chronic Problems): Chronic Problems (Last Reviewed 10/09/18 @ 16:23 by Divina Ahumada) Lymphedema of right lower extremity (Chronic) Automatic implantable cardioverter-defibrillator in situ (Chronic) Chronic systolic congestive heart failure (Chronic) Presence of stent in coronary artery (Chronic) PTCA/stent to prox LAD 02/02/05; PTCA/stent instent restenosis of prox LAD 10/15/13 Atherosclerotic heart disease of [place] coronary artery without angina pectoris (Chronic) CABG x2- PARK to LAD, SARIAH to OM 06/01/05; PTCA/stent to prox LAD 02/02/05; PTCA/stent instent restenosis of prox LAD 10/15/13 Shortness of breath (Chronic) Postsurgical aortocoronary bypass status (Chronic ~06/01/05) CABG x2- PARK to LAD, SARIAH to OM 06/01/05 Family history of CVA (Chronic) Ischemic cardiomyopathy (Chronic) Hyperlipidemia (Chronic) Hypertension (Chronic) ICD (implantable cardioverter-defibrillator) in place (Chronic ~08/17/10) ICD Implant 2009 Medical History: Medical History (Last Reviewed 10/09/18 @ 16:23 by Divina Ahumada) Chronic systolic congestive heart failure (Chronic) I50.22 Atherosclerotic heart disease of [place] coronary artery without angina pectoris (Chronic) I25.10 CABG x2- PARK to LAD, SARIAH to OM 06/01/05; PTCA/stent to prox LAD 02/02/05; PTCA/stent instent restenosis of prox LAD 10/15/13 Shortness of breath (Chronic) R06.02 History of tobacco abuse (Acute) Z87.891 Family history of CVA (Chronic) Z82.3 Ischemic cardiomyopathy (Chronic) I25.5 Hyperlipidemia (Chronic) E78.5 Hypertension (Chronic) I10 ICD (implantable cardioverter-defibrillator) in place (Chronic) Onset Date: ~08/17/10 Z95.810 ICD Implant 2009 Family history of CVA Z82.3 GERD (gastroesophageal reflux disease) K21.9 History of tobacco abuse Z87.891 Lymphedema of right lower extremity I89.0 Acute lymphangitis of right lower extremity (Inactive) L03.125 Atherosclerosis of coronary artery bypass graft without angina pectoris (Inactive) I25.810 CAD (coronary artery disease) (Inactive) I25.10 Chronic Systolic CHF - EF 45% (Inactive) Effects of radiation (Inactive) T66.XXXA late effect radiation right lower extremity GERD (gastroesophageal reflux disease) (Inactive) K21.9 Gastroenteritis (Inactive) K52.9 History of 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 (Inactive) I25.2 MCC use of drug (Inactive) Z79.899 Lymphedema of Right Leg (Inactive) Lymphedema of right lower extremity (Inactive) I89.0 Morbid obesity with BMI of 40.0-44.9, adult (Inactive) E66.01, Z68.41 SIRS (systemic inflammatory response syndrome) (Inactive) R65.10 Allergies No Known Allergies Allergy (Verified 01/21/19 13:37) Home Medications: Ambulatory Orders Medication Instructions Recorded Montelukast [Singulair] 10 mg PO DAILY 10/05/13 Niacin SA [Niaspan] 1,000 mg PO QHS 10/05/13 Escitalopram Oxalate [Lexapro] 20 mg PO DAILY 11/02/14 Meloxicam [Mobic] 15 mg PO DAILY 05/24/17 Temazepam [Restoril] 30 mg PO QHS 05/24/17 Aspirin [Aspirin, Baby] 81 mg PO QHS 06/09/17 Acetaminophen [Tylenol Tablet] 650 mg PO Q6H PRN PRN tab 06/10/17 gabapentin 600 mg tablet 600 mg PO QHS tab 01/06/18 loratadine 10 mg tablet 10 mg PO QDAY 01/06/18 bupropion HCl SR 150 mg tablet,12 150 mg PO BID 01/08/18 hr sustained-release pantoprazole 40 mg tablet,delayed 40 mg PO DAILY tab 01/08/18 release isosorbide mononitrate ER 60 mg 60 mg PO BID #180 tab 01/15/18 tablet,extended release 24 hr nitroglycerin 0.4 mg sublingual 0.4 mg SUBLINGUAL Q5M PRN #25 tab 01/15/18 tablet clopidogrel 75 mg tablet 75 mg PO DAILY #90 tab 01/29/18 potassium chloride ER 20 mEq 40 meq PO QDAY #180 tab 05/20/18 tablet,extended release ramipril 2.5 mg capsule 2.5 mg PO DAILY #90 cap 06/24/18 Furosemide [Lasix] 40 mg PO DINNER 07/11/18 Furosemide [Lasix] 80 mg PO DAILY 07/11/18 Pen G Toan/Pen G Procaine 1,200,000 unit IM QMONTH 07/11/18 [Bicillin C-R 900-300 Syringe] carvedilol 25 mg tablet 25 mg PO BID #180 tab 07/21/18 ranolazine ER 1,000 mg 1,000 mg PO BID #180 tab 09/01/18 tablet,extended release,12 hr atorvastatin 40 mg tablet 40 mg PO DINNER #30 tab 12/30/18 Surgical History: Surgical History (Last Reviewed 10/09/18 @ 16:23 by Divina Ahumada) Presence of stent in coronary artery (Chronic) Z95.5 PTCA/stent to prox LAD 02/02/05; PTCA/stent instent restenosis of prox LAD 10/15/13 Postsurgical aortocoronary bypass status (Chronic) Onset Date: ~06/01/05 Z95.1 CABG x2- PARK to LAD, SARIAH to OM 06/01/05 Status post right rotator cuff repair Z98.890 History of percutaneous transluminal coronary angioplasty (Inactive) Z98.61 2005 Surgical History: coronary bypass surgery - CABG x 2., total hip arthroplasty, tonsillectomy, - - RLE surgery for sarcoma w/ follow-up excisions, AICD. Psychiatric History: No pertinent psych hx Lives: With Family Smoking Status: Former smoker Alcohol: None Drugs: None - *Family History Maternal Family History: Family History (Last Reviewed 10/09/18 @ 16:23 by Divina Ahumada) Mother CAD (coronary artery disease) Father CVA (cerebral vascular accident) Myocardial infarction Brother CAD (coronary artery disease) Hx of CABG Brother CAD (coronary artery disease) Hx of CABG History Items: Heart Disease, Stroke Paternal Family History: Family History (Last Reviewed 10/09/18 @ 16:23 by Divina Ahumada) Mother CAD (coronary artery disease) Father CVA (cerebral vascular accident) Myocardial infarction Brother CAD (coronary artery disease) Hx of CABG Brother CAD (coronary artery disease) Hx of CABG History Items: Cancer - Father with history of liver CA., No pertinent history Review of Systems Constitutional: Reports: - - complete ROS negative except as documented in HPI VTE Information - Inpt Only VTE Present on Admission: No VTE Mechan Device Prophylaxis: SCD's, Knee High IJEOMA [place] VTE Pharm Prophylaxis ordered?: Yes Patient Problems: Active and Suspected Problems (Last Reviewed 10/09/18 @ 16:23 by Divina Ahumada) Debility (Acute) Above knee amputation of right lower extremity (Acute) - Physical Exam General: Alert HEENT: Normocephalic Neck: Supple Lungs: Normal air movement Cardiovascular: Normal S1, Normal S2 Abdomen: Bowel Sounds Present Extremities: No cyanosis Neurological: Cranial nerves II-XII grossly intact, Deep Tendon Reflexes 2+/4 and Symmetrical, Neuro grossly intact, Motor Exam 5/5 strength throughout, Muscle tone normal, Sensory exam intact to light touch and pain, Coordination normal, - - Right AKA s/p wound vac Psych/Mental Status: Normal Affect Body Mass Index (BMI) 45.7 Assessment/Plan All Active Problems (Last Reviewed 10/09/18 @ 16:23 by Divina Ahumada) Debility (Acute) Above knee amputation of right lower extremity (Acute) Cellulitis of right lower extremity (Acute) History of tobacco abuse (Acute) The patient is a 63 year old M with PMH HTN, HLD, H/O myxoid sarcoma right thigh s/p chemotherapy/radiation 1996, complicated by chronic right LE lymphedema, CAD s/p stent, CABG, chronic systolic CHF, S/P AICD, TARAN on CPAP, morbid obesity admitted to [facility] on 01/30/19, with debility s/p Right AKA by Dr. Rahman on 01/26/19 and flap closure 01/28/19, for > 3 hrs therapy daily with a goal of returning home at or near his prior level of functional independence. Per patient he had chronic right LE lymphedema for which right AKA was done, per patient he lives with his daughter, son, used cane to ambulate previously, did drive, lives in a ranch house, has a ramp to go into the house, denies any frequent falls. He denies severe pain in the stump at present, denies any focal motor weakness, has chronic right thigh sensory loss per patient, denies any visual disturbances, chest pain, fever or speech disturbances. Plan -PT for gait stability -OT for ADLs -Bowel protocol -Analgesic PRN -Right AKA amputation-right LE NWB per orthopedics Dr. Pete recommendation. Further management per Dr. Pete recommendations -S/P right AKA wound vac- wound consult -HTN-Ramipril 2.5 mg PO once daily, Coreg 25 mg PO BID -HLD- on Lipitor 40 mg PO q hs and Niacin -CAD s/p stents/CABG/ AICD- on ASA/Plavix -Chronic systolic CHF- s/p AICD, Lasix, potassium supplementation, Imdur and Ranolazine -TARAN- on CPAP -Depression- on Lexapro and Bupropion -GI/DVT prophylaxis- on pantoprazole/ASA/Plavix/SCDs/IJEOMA hose, DVT ASA/Plavix per orthopedics recommendations -Hospitalist consult -Further medical management per hospitalist recommendations -Fall precautions -Follow up with PCP, orthopedic surgery, oncology and cardiology on discharge. Code Visit Inpatient E&M: 64968 Init Hosp L3
--- NOTE | 2019-01-30 14:50 | REHABEVAL_ITS ---
Admission Information Status Changes from Prescreening?: No changes Identified Actual Problem List:: Mobility Impaired, Self Care Deficit, BP, Hypertension Potential Problem List:: DVT, Bleeding, Infection, UTI, Aspiration, Falls, Skin Integrity, Depression Risk of Complications DVT: LMWH, IJEOMA Hose, Sequential Compression Device Bleeding: Monitor Lab Values, Nursing to Teach Precautions for anti-coagulation therapy., Wound, if applicable, to be assessed every shift., Stroke patients assessed for lethargy or change in status. Infection: Clinical Staff to Monitor for S/S of infection:, S/S of infection include fever, redness, warmth, etc. Urinary Tract Infection: Monitor for frequency, burning, discomfort, or incontinence., Nursing will obtain urine sample for urinalysis and C&S when ordered. Aspiration: Clinical staff will monitor for coughing, drooling, congestion., Speech will evaluate swallowing and dsyphasia., Nursing will monitor patient s wallowing during meals. Falls: Patient will be evaluated for Fall Precautions, Patient will be placed on Fall Precautions as indicated per protocol. Skin Breakdown: Nursing will assess skin daily using assessment tool., Nursing will place on Skin Breakdown Precautions as indicated. Pain: Clinical staff will assess patient's pain level per protocol., Medications will be given, if needed, and the pain level reassessed., Other methods: Massage, distraction, decrease stimulus, etc. used PRN. Plan of Care Patient requires physician specializing in physical medicine and rehab oversight to provide close medical supervision of rehab issues including: Pain Management, Sleep Problems, Bowel and Bladder, Medical and co-morbidity Management, DVT prophylaxis, Rehabilitation Leadership, Coordination of treatment team Patient needs Physical Therapy: For a minimum of 1 hour, At least 5 out of 7 days Patient needs Physical Therapy to improve:: Mobility, Mobility, Mobility, Strengthening, Transfers, Stretching, ROM, Endurance, Stairs, Gait, Balance Patient needs Occupational Therapy: For a minimum of 1 hour, At least 5 out of 7 days Patient needs Occupational Therapy to improve ADL's incl.: Eating, Grooming, Bathing, Dressing, Toileting, Toilet transfers, Community Reintegration, Higher functioning activities, Household tasks, Adaptive Equipment, Splinting, Other activities as determined Patient requires speech therapy: For a minimum of 1 hour, At least 5 out of 7 days Patient requires speech therapy for: Swallowing, Cognition, Language Skills, Compensatory Strategies Patient requires 24/7 Rehabilitation Nursing for: Pain Issues, Identifying and preventing risk factors, Monitoring and reporting current medical conditions, Assisting with ambulation, transfer, and all ADL's, Teaching patients about disease process and medications, Family teaching, Providing safe environment, Bowel and Bladder Issues, Skin integrity, Medication Management Patient needs Food And Drug Research Scientist/ Case Management for: Discharge Planning, Arranging Home Equipment or Services, Family Interventions Patient needs Dietary and Nutrition Services for: Adequate Nutrition, Nutritional Supplements, Nutritional Education Goals Patient will remain: free from falls, or injury at time of discharge. Patient will perform bed mobility at: MOD I level of assist. Patient will complete transfers from bed to chair at: MOD I level of assist. Patient will ambulate: 100 feet, with MOD I assist, with LRD Patient will complete upper body dressing at: MOD I level of assist. Patient will complete lower body dressing at: MOD I level of assist. Patient will complete toileting at: MOD I level of assist. Patient will perform bathing at: MOD I level of assist. Patient will complete grooming at: MOD I level of assist. Patient will complete home management skills at: MOD I level of assist. Patient will achieve: 12 stairs, at MOD I assist Patient will have pain level of: of 3 or less Patient's skin will: remain intact, free from infection. Patient will receive: adequate nutrition. Discharge Planning Pt Prognosis for Sig. Practical Improv. w/in Reasonable Time: Good Estimated Length of stay (days): 20 Anticipated D/C Destination: Home with Outpt Therapy Was Preadmission Assessment Accurate?: Yes
--- NOTE | 2019-01-30 15:20 | PCM.PROGNOTE ---
Patient Problems: Active and Suspected Problems (Last Reviewed 10/09/18 @ 16:23 by Divina Ahumada) Debility (Acute) Above knee amputation of right lower extremity (Acute) Subjective: Patient seen and examined. Denies significant pain. Denies GI/ issues. States he has been ambulating with walker without difficulty. Denies current complaints. - Physical Exam General: Alert, Oriented x3, Cooperative HEENT: Atraumatic, PERRLA, EOMI, Normocephalic Neck: Supple, No JVD, Negative Carotid Bruits Lungs: Clear to auscultation, Normal air movement Cardiovascular: Regular rate, Regular Rhythm, Normal S1, Normal S2, No murmurs Abdomen: Bowel Sounds Present, Soft, Non Tender, Non-Distended, Obese Extremities: No clubbing, No cyanosis, Capillary Refill Less than 3 Seconds, Edema - Right thigh lymphedema., - - Right AKA, wound vac in place. Skin: No rashes, No breakdown Musculoskeletal: No Tenderness to Palpation of Joints or Extremities Neurological: Cranial nerves II-XII grossly intact, Neuro grossly intact Psych/Mental Status: Normal Affect, Appropriate Vital Signs Temp Pulse Resp BP Pulse Ox 97.4 F L 67 16 118/68 94 01/30/19 14:37 01/30/19 14:37 01/30/19 14:37 01/30/19 14:37 01/30/19 14:37 Oxygen Delivery Method Room Air Weight: 369 lb 11.443 oz Body Mass Index (BMI) 51.5 Medical Necessity - Tobacco Use Smoking Status: Former smoker Assessment/Plan All Active Problems (Last Reviewed 10/09/18 @ 16:23 by Divina Ahumada) Debility (Acute) Above knee amputation of right lower extremity (Acute) Cellulitis of right lower extremity (Acute) History of tobacco abuse (Acute) 1. 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 Rahman. PT/OT. PRN pain regimen. Wound vac in place. Wound RN consult. 2. Chronic systolic CHF/ischemic cardiomyopathy status post AICD-continue Lasix, BURT inhibitor regimen. Echocardiogram December 2017 with EF 35%. Patient follows with Dr. Mtz. 3. CAD status post CABG/PTCA-continue aspirin, statin, Plavix, carvedilol, isosorbide. 4. Hypertension-continue enalapril, Coreg, Imdur regimen. 5. Hyperlipidemia- continue statin. 6. Depression-continue Lexapro and bupropion regimen. 7. TARAN-continue CPAP nightly. 8. GERD-continue PPI. DVT prophylaxis-SCD/ASA/Plavix per ortho recommendations This patient was seen by JHON Sharif under the supervision of Dr. Carrasco.
--- NOTE | 2019-01-30 15:24 | NURSING ---
wound photo: right stump incision
[2019-01-30] MEDS: oxyCODONE 5 MG Tablet PO ×2 (16:12→21:32)
[2019-01-30] MEDS: Furosemide 40 MG Tablet PO (17:35)
[2019-01-30] MEDS: Atorvastatin Calcium 40 MG Tablet PO (17:35)
[2019-01-30 20:00] VITALS: BP 118/58; PULSE 68; RESP 18; TEMP 36.8; O2SAT 96
[2019-01-30] MEDS: Isosorbide Mononitrate 60 MG Tablet PO (21:28)
[2019-01-30] MEDS: Gabapentin 300 MG Capsule PO (21:28)
[2019-01-30] MEDS: Temazepam 15 MG Capsule PO (21:28)
[2019-01-30] MEDS: Ranolazine 500 MG Tablet 1000 MG PO (21:28)
[2019-01-30] MEDS: Aspirin 81 MG TAB.CHEW PO (21:28)
[2019-01-30] MEDS: Senna/Docusate Sodium 1 Tablet 2 TABLET PO (21:29)
[2019-01-30] MEDS: buPROPion (SR) 150 MG Tablet.SA PO (21:29)
[2019-01-30] MEDS: Carvedilol 25 MG Tablet PO (21:35)
[2019-01-31 07:00] VITALS: BP 111/75; PULSE 67; RESP 16; TEMP 36.8; O2SAT 95
[2019-01-31 07:07] LABS: Absolute Lymphocyte Count 1.55 X10^3/ul (0.83-4.51); Absolute Neutrophil Count 5.4 X10^3/uL (2.0-7.7); Basophil# 0.02 X10^3/uL; Basophil% 0.3 % (0-1); Eosinophil# 0.24 X10^3/uL; Hemoglobin 10.3 g/dl (13.0-16.5); Lymphocyte # 1.55 X10^3/ul (4.0); Lymphocyte % 19.5 % (19-41); Mean Corp Hgb Conc 32.2 g/gl (32-36); Mean Corpuscular Hgb 30.5 pg (27.0-32.0); Mean Corpuscular Volume 94.7 fL (80-94); Mean Platelet Vol. 9.4 fl (6.2-12.0); Monocyte# 0.67 X10^3/uL; Monocyte% 8.4 % (0-10); Neutrophil % 68.2 % (47-70); Platelet Count 153 K/mm3 (150-450); RBC Distribution Width CV 14.1 % (11.6-14.6); RBC Distribution Width SD 48.5 fl (35.1-43.9); Red Blood Count 3.38 M/mm3 (4.6-6.2); White Blood Count 7.9 K/mm3 (4.4-11.0)
[2019-01-31 07:10] LABS: POSITIVE COUNT NO; POSITIVE DIFFERENTIAL NO; POSITIVE MORPHOLOGY NO
[2019-01-31 07:30] LABS: ALB/GLOB Ratio 0.9 RATIO (0.9-2.4); AST(SGOT) 16 U/L (15-37); Alanine Aminotransfer ALT/SGPT 17 U/L (16-61); Albumin, Serum 2.9 g/dL (3.2-5.0); Alkaline Phosphatase 94 U/L (45-117); Anion Gap 8 (5-15); BUN 12 mg/dL (7-18); BUN/Creat Ratio 11.4 RATIO (10-20); Calcium,Total 8.8 mg/dL (8.5-10.1); Chloride 103 mmol/L (98-107); Creatinine, Serum 1.05 mg/dL (0.70-1.30); EST Glomerular Filtration Rate 76 mL/min (>60); Est Glom Filt Rate - Afr Amer 92 mL/min (>60); Estimated Creatinine Clearance 76.69 ml/min; Globulin 3.4 g/dL (2.2-4.2); Glucose 93 mg/dL (74-106); Potassium 4.1 mmol/L (3.5-5.1); Protein, Total 6.3 g/dL (6.4-8.2); Sodium Level 139 mmol/L (136-145)
[2019-01-31] MEDS: Montelukast 10 MG Tablet PO (07:35)
[2019-01-31] MEDS: Escitalopram Oxalate 20 MG Tablet PO (07:35)
[2019-01-31] MEDS: Loratadine 10 MG Tablet PO (07:36)
[2019-01-31] MEDS: Clopidogrel Bisulfate 75 MG Tablet PO (07:36)
[2019-01-31] MEDS: Meloxicam 15 MG Tablet PO (07:36)
[2019-01-31] MEDS: Pantoprazole Sodium 40 MG Tablet PO (07:36)
[2019-01-31] MEDS: Ranolazine 500 MG Tablet 1000 MG PO ×2 (07:36→21:12)
[2019-01-31] MEDS: Senna/Docusate Sodium 1 Tablet 2 TABLET PO ×2 (07:37→21:14)
[2019-01-31] MEDS: Isosorbide Mononitrate 60 MG Tablet PO ×2 (07:37→21:13)
[2019-01-31] MEDS: Ramipril 2.5 MG Capsule PO (07:37)
[2019-01-31] MEDS: buPROPion (SR) 150 MG Tablet.SA PO ×2 (07:37→21:14)
[2019-01-31] MEDS: Carvedilol 25 MG Tablet PO ×2 (07:37→21:13)
[2019-01-31] MEDS: Furosemide 80 MG Tablet PO (07:38)
[2019-01-31] MEDS: oxyCODONE 5 MG Tablet PO (07:44)
[2019-01-31 08:35] VITALS: O2SAT 92
[2019-01-31] MEDS: Furosemide 40 MG Tablet PO (16:58)
[2019-01-31] MEDS: Atorvastatin Calcium 40 MG Tablet PO (16:58)
[2019-01-31] MEDS: Magnesium Hydroxide 30 ML UDC PO (18:28)
[2019-01-31 20:00] VITALS: BP 95/50; PULSE 66; RESP 18; TEMP 36.4; O2SAT 18
[2019-01-31] MEDS: Temazepam 15 MG Capsule PO (21:12)
[2019-01-31] MEDS: Aspirin 81 MG TAB.CHEW PO (21:13)
[2019-01-31] MEDS: Gabapentin 300 MG Capsule PO (21:13)
--- NOTE | 2019-02-01 05:32 | NURSING ---
Pt refused a.m. ADLs at this time and requested a late wake up since there is no therapy today.
[2019-02-01 07:43] VITALS: BP 124/64; PULSE 74; RESP 18; TEMP 36.8; O2SAT 95
[2019-02-01] MEDS: Furosemide 80 MG Tablet PO (09:30)
[2019-02-01] MEDS: Escitalopram Oxalate 20 MG Tablet PO (09:30)
[2019-02-01] MEDS: Loratadine 10 MG Tablet PO (09:30)
[2019-02-01] MEDS: Ranolazine 500 MG Tablet 1000 MG PO ×2 (09:30→22:12)
[2019-02-01] MEDS: buPROPion (SR) 150 MG Tablet.SA PO ×2 (09:30→22:12)
[2019-02-01] MEDS: Isosorbide Mononitrate 60 MG Tablet PO ×2 (09:30→22:12)
[2019-02-01] MEDS: Clopidogrel Bisulfate 75 MG Tablet PO (09:30)
[2019-02-01] MEDS: Meloxicam 15 MG Tablet PO (09:30)
[2019-02-01] MEDS: Senna/Docusate Sodium 1 Tablet 2 TABLET PO ×2 (09:30→22:12)
[2019-02-01] MEDS: Montelukast 10 MG Tablet PO (09:30)
[2019-02-01] MEDS: Pantoprazole Sodium 40 MG Tablet PO (09:30)
[2019-02-01] MEDS: Carvedilol 25 MG Tablet PO ×2 (09:31→22:12)
[2019-02-01] MEDS: Ramipril 2.5 MG Capsule PO (09:31)
[2019-02-01 12:08] VITALS: O2SAT 94
--- NOTE | 2019-02-01 16:03 | NURSING ---
PT ASSISTED TO RESTROOM. WHEN SAT DOWN ON ELEVATED TOILET SEAT LEG CAUGHT ON SEAT AND INCREASED RED DRAINAGE NOTED ON BLACK FOAM AND IN WOUND VAC TUBING. DRAINAGE DECREASED AFTER AFTER A MINUTE. SEAL REMAINS INTACT AT 125MMHG SUCTION. PT ASSISTED TO BED W/NO NEW DRAINAGE NOTED. WILL CONTINUE TO MONITOR.
--- NOTE | 2019-02-01 17:35 | PCM.PN.HOSP ---
Patient Problems: Active and Suspected Problems (Last Reviewed 10/09/18 @ 16:23 by Divina Ahumada) Debility (Acute) Above knee amputation of right lower extremity (Acute) Subjective: Patient does not have bruise or bleeding or hematoma near the right above-knee amputation surgical site. As per the nursing staff, hurt amputation stump during sitting up for toilet. Patient denies it. Wound care nurse Gilma photo of stump, suture line and not reviewed. Vitals/I&O's: Vital Signs Temp Pulse Resp BP Pulse Ox 98.2 F 74 18 124/64 H 94 02/01/19 07:43 02/01/19 07:43 02/01/19 07:43 02/01/19 07:43 02/01/19 12:08 Oxygen Delivery Method Room Air Weight: 369 lb 11.443 oz Body Mass Index (BMI) 51.5 Intake and Output for Last 24 Hours 01/30/19 01/31/19 02/01/19 23:59 23:59 23:59 Intake Total 480 / 480 1020 / 1020 300 / 300 Output Total 2200 / 2200 Balance 480 / 480 -1180 / -1180 300 / 300 General: Alert, Oriented x3, Cooperative HEENT: Atraumatic, PERRLA, EOMI, Normocephalic Neck: Supple, No JVD, Negative Carotid Bruits Lungs: Clear to auscultation, Normal air movement, No rhonchi, No wheeze, No rales Cardiovascular: Regular rate, Regular Rhythm, Normal S1, Normal S2, No murmurs Abdomen: Bowel Sounds Present, Soft, Non Tender, Non-Distended Extremities: No edema, Capillary Refill Less than 3 Seconds, - - Status post right above-knee amputation. Dressing on amputation stump does not show bruise/hematoma. Suture line is intact on the fourth toe. Skin: No rashes, No breakdown Musculoskeletal: No Tenderness to Palpation of Joints or Extremities Neurological: Cranial nerves II-XII grossly intact Psych/Mental Status: Normal Affect, Appropriate Current Medications Aspirin (Aspirin, Baby) 81 mg PO QHS [facility] Last Admin: 01/31/19 21:13 Dose: 81 mg Atorvastatin Calcium (Lipitor) 40 mg PO DINNER [facility] Last Admin: 01/31/19 16:58 Dose: 40 mg Bisacodyl (Dulcolax) 10 mg RECTAL .PRN X 1 PRN PRN Reason: Constipation Bupropion HCl (Wellbutrin Sr (150mg Tablets)) 150 mg PO BID [facility] Last Admin: 02/01/19 09:30 Dose: 150 mg Carvedilol (Coreg) 25 mg PO BID [facility] Last Admin: 02/01/19 09:31 Dose: 25 mg Clopidogrel Bisulfate (Plavix) 75 mg PO DAILY [facility] Last Admin: 02/01/19 09:30 Dose: 75 mg Escitalopram Oxalate (Lexapro) 20 mg PO DAILY [facility] Last Admin: 02/01/19 09:30 Dose: 20 mg Furosemide (Lasix) 80 mg PO QAM [facility] Last Admin: 02/01/19 09:30 Dose: 80 mg Furosemide (Lasix) 40 mg PO DINNER [facility] Last Admin: 01/31/19 16:58 Dose: 40 mg Gabapentin (Neurontin) 300 mg PO QHS [facility] Last Admin: 01/31/19 21:13 Dose: 300 mg Isosorbide Mononitrate (Imdur) 60 mg PO BID [facility] Last Admin: 02/01/19 09:30 Dose: 60 mg Loratadine (Claritin) 10 mg PO DAILY [facility] Last Admin: 02/01/19 09:30 Dose: 10 mg Magnesium Hydroxide (Milk Of Magnesia) 30 ml PO .PRN X 1 PRN PRN Reason: Constipation Last Admin: 01/31/19 18:28 Dose: 30 ml Meloxicam (Mobic) 15 mg PO DAILY [facility] Last Admin: 02/01/19 09:30 Dose: 15 mg Montelukast Sodium (Singulair) 10 mg PO DAILY [facility] Last Admin: 02/01/19 09:30 Dose: 10 mg Niacin (Niaspan) 1,000 mg PO QHS [facility] Last Admin: 01/31/19 21:13 Dose: 1,000 mg Oxycodone HCl (Oxyir) 5 - 10 mg PO Q4H PRN PRN PRN Reason: SEVERE PAIN (6-10/10) Last Admin: 01/31/19 07:44 Dose: 10 mg Pantoprazole Sodium (Protonix) 40 mg PO DAILY [facility] Last Admin: 02/01/19 09:30 Dose: 40 mg [facility] ([facility] Admin: 02/01/19 09:30 Dose: 40 meq Ramipril (Altace) 2.5 mg PO DAILY [facility] Last Admin: 02/01/19 09:31 Dose: 2.5 mg Ranolazine (Ranexa) 1,000 mg PO BID [facility] Last Admin: 02/01/19 09:30 Dose: 1,000 mg Senna/Docusate Sodium (Senokot-S, Amna-Colace) 2 tablet PO BID [facility] Last Admin: 02/01/19 09:30 Dose: 2 tablet Temazepam (Restoril) 15 mg PO HS [facility] Last Admin: 01/31/19 21:12 Dose: 15 mg Medical Necessity - Tobacco Use Smoking Status: Former smoker Tobacco Use: Non-smoker Assessment/Plan All Active Problems (Last Reviewed 10/09/18 @ 16:23 by Divina Ahumada) Debility (Acute) Above knee amputation of right lower extremity (Acute) Cellulitis of right lower extremity (Acute) History of tobacco abuse (Acute) The patient is a 63 y/o M WITH HISTORY SIGNIFICANT OF CAD s/p CABG and PCI, HTN, HLD, Depression, TARAN, GERD, Chronic Systolic heart failure most probably ischemic Cardiomyopathy, History of Right thigh myosarcoma s/p remote radiation with chronic lymphedema who presents to the [facility] on 01/30/19 w/ recent R AKA for ongoing therapies. Surgery was done by Dr. Jm Rahman; orthopedics oncologist in [facility]. 1. 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 Rahman. PT/OT. PRN pain regimen. Wound vac in place. Wound RN, Gilma note reviewed. As per the photo in her note and my exam, wound suture line looks healthy. No discharge. Dressing is dry. 2. Chronic systolic CHF/ischemic cardiomyopathy status post AICD-continue Lasix, BURT inhibitor regimen. Echocardiogram December 2017 with EF 35%. Patient follows with Dr. Mtz. 3. CAD status post CABG/PTCA-continue aspirin, statin, Plavix, carvedilol, isosorbide. 4. Hypertension-continue enalapril, Coreg, Imdur regimen. 5. Hyperlipidemia- continue statin. 6. Depression-continue Lexapro and bupropion regimen. 7. TARAN-continue CPAP nightly. 8. GERD-continue PPI. DVT prophylaxis-SCD/ASA/Plavix per ortho recommendations Patient has follow-up with Dr. Jm Rahman in about 2 weeks. Code Visit Inpatient E&M: 93129 Subs Hosp L2
--- NOTE | 2019-02-01 17:42 | PN_ITS ---
Patient Problems: Active and Suspected Problems (Last Reviewed 10/09/18 @ 16:23 by Divina Ahumada) Debility (Acute) Above knee amputation of right lower extremity (Acute) Subjective: Patient does not have bruise or bleeding or hematoma near the right above-knee amputation surgical site. As per the nursing staff, hurt amputation stump during sitting up for toilet. Patient denies it. Wound care nurse Gilma photo of stump, suture line and not reviewed. Vitals/I&O's: Vital Signs Temp Pulse Resp BP Pulse Ox 98.2 F 74 18 124/64 H 94 02/01/19 07:43 02/01/19 07:43 02/01/19 07:43 02/01/19 07:43 02/01/19 12:08 Oxygen Delivery Method Room Air Weight: 369 lb 11.443 oz Body Mass Index (BMI) 51.5 Intake and Output for Last 24 Hours 01/30/19 01/31/19 02/01/19 23:59 23:59 23:59 Intake Total 480 / 480 1020 / 1020 300 / 300 Output Total 2200 / 2200 Balance 480 / 480 -1180 / -1180 300 / 300 General: Alert, Oriented x3, Cooperative HEENT: Atraumatic, PERRLA, EOMI, Normocephalic Neck: Supple, No JVD, Negative Carotid Bruits Lungs: Clear to auscultation, Normal air movement, No rhonchi, No wheeze, No rales Cardiovascular: Regular rate, Regular Rhythm, Normal S1, Normal S2, No murmurs Abdomen: Bowel Sounds Present, Soft, Non Tender, Non-Distended Extremities: No edema, Capillary Refill Less than 3 Seconds, - - Status post right above-knee amputation. Dressing on amputation stump does not show bruise/hematoma. Suture line is intact on the fourth toe. Skin: No rashes, No breakdown Musculoskeletal: No Tenderness to Palpation of Joints or Extremities Neurological: Cranial nerves II-XII grossly intact Psych/Mental Status: Normal Affect, Appropriate Current Medications Aspirin (Aspirin, Baby) 81 mg PO QHS [facility] Last Admin: 01/31/19 21:13 Dose: 81 mg Atorvastatin Calcium (Lipitor) 40 mg PO DINNER [facility] Last Admin: 01/31/19 16:58 Dose: 40 mg Bisacodyl (Dulcolax) 10 mg RECTAL .PRN X 1 PRN PRN Reason: Constipation Bupropion HCl (Wellbutrin Sr (150mg Tablets)) 150 mg PO BID [facility] Last Admin: 02/01/19 09:30 Dose: 150 mg Carvedilol (Coreg) 25 mg PO BID [facility] Last Admin: 02/01/19 09:31 Dose: 25 mg Clopidogrel Bisulfate (Plavix) 75 mg PO DAILY [facility] Last Admin: 02/01/19 09:30 Dose: 75 mg Escitalopram Oxalate (Lexapro) 20 mg PO DAILY [facility] Last Admin: 02/01/19 09:30 Dose: 20 mg Furosemide (Lasix) 80 mg PO QAM [facility] Last Admin: 02/01/19 09:30 Dose: 80 mg Furosemide (Lasix) 40 mg PO DINNER [facility] Last Admin: 01/31/19 16:58 Dose: 40 mg Gabapentin (Neurontin) 300 mg PO QHS [facility] Last Admin: 01/31/19 21:13 Dose: 300 mg Isosorbide Mononitrate (Imdur) 60 mg PO BID [facility] Last Admin: 02/01/19 09:30 Dose: 60 mg Loratadine (Claritin) 10 mg PO DAILY [facility] Last Admin: 02/01/19 09:30 Dose: 10 mg Magnesium Hydroxide (Milk Of Magnesia) 30 ml PO .PRN X 1 PRN PRN Reason: Constipation Last Admin: 01/31/19 18:28 Dose: 30 ml Meloxicam (Mobic) 15 mg PO DAILY [facility] Last Admin: 02/01/19 09:30 Dose: 15 mg Montelukast Sodium (Singulair) 10 mg PO DAILY [facility] Last Admin: 02/01/19 09:30 Dose: 10 mg Niacin (Niaspan) 1,000 mg PO QHS [facility] Last Admin: 01/31/19 21:13 Dose: 1,000 mg Oxycodone HCl (Oxyir) 5 - 10 mg PO Q4H PRN PRN PRN Reason: SEVERE PAIN (6-10/10) Last Admin: 01/31/19 07:44 Dose: 10 mg Pantoprazole Sodium (Protonix) 40 mg PO DAILY [facility] Last Admin: 02/01/19 09:30 Dose: 40 mg Potassium [facility] ([facility]) [facility] Admin: 02/01/19 09:30 Dose: 40 meq Ramipril (Altace) 2.5 mg PO DAILY [facility] Last Admin: 02/01/19 09:31 Dose: 2.5 mg Ranolazine (Ranexa) 1,000 mg PO BID [facility] Last Admin: 02/01/19 09:30 Dose: 1,000 mg Senna/Docusate Sodium (Senokot-S, Amna-Colace) 2 tablet PO BID [facility] Last Admin: 02/01/19 09:30 Dose: 2 tablet Temazepam (Restoril) 15 mg PO HS [facility] Last Admin: 01/31/19 21:12 Dose: 15 mg Medical Necessity - Tobacco Use Smoking Status: Former smoker Tobacco Use: Non-smoker Assessment/Plan All Active Problems (Last Reviewed 10/09/18 @ 16:23 by Divina Ahumada) Debility (Acute) Above knee amputation of right lower extremity (Acute) Cellulitis of right lower extremity (Acute) History of tobacco abuse (Acute) The patient is a 63 y/o M WITH HISTORY SIGNIFICANT OF CAD s/p CABG and PCI, HTN, HLD, Depression, TARAN, GERD, Chronic Systolic heart failure most probably ischemic Cardiomyopathy, History of Right thigh myosarcoma s/p remote radiation with chronic lymphedema who presents to the [facility] on 01/30/19 w/ recent R AKA for ongoing therapies. Surgery was done by Dr. Jm Rahman; orthopedics oncologist in [facility]. 1. 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 Rahman. PT/OT. PRN pain regimen. Wound vac in place. Wound RN, Gilma note reviewed. As per the photo in her note and my exam, wound suture line looks healthy. No discharge. Dressing is dry. 2. Chronic systolic CHF/ischemic cardiomyopathy status post AICD-continue Lasix, BURT inhibitor regimen. Echocardiogram December 2017 with EF 35%. Patient follows with Dr. Mtz. 3. CAD status post CABG/PTCA-continue aspirin, statin, Plavix, carvedilol, isosorbide. 4. Hypertension-continue enalapril, Coreg, Imdur regimen. 5. Hyperlipidemia- continue statin. 6. Depression-continue Lexapro and bupropion regimen. 7. TARAN-continue CPAP nightly. 8. GERD-continue PPI. DVT prophylaxis-SCD/ASA/Plavix per ortho recommendations Patient has follow-up with Dr. Jm Rahman in about 2 weeks. Code Visit Inpatient E&M: 30468 Subs Hosp L2
[2019-02-01] MEDS: Furosemide 40 MG Tablet PO (18:17)
[2019-02-01] MEDS: Atorvastatin Calcium 40 MG Tablet PO (18:17)
[2019-02-01 22:00] VITALS: BP 121/68; PULSE 77; RESP 16; TEMP 36.7; O2SAT 98
[2019-02-01] MEDS: Gabapentin 300 MG Capsule PO (22:12)
[2019-02-01] MEDS: Temazepam 15 MG Capsule PO (22:13)
[2019-02-01] MEDS: Aspirin 81 MG TAB.CHEW PO (22:13)
[2019-02-01] MEDS: oxyCODONE 5 MG Tablet PO (23:01)
--- NOTE | 2019-02-02 02:28 | NURSING ---
Reviewed and agree with OPERATIONS DEVELOPER documentation and FIMs charting.
--- NOTE | 2019-02-02 03:38 | NURSING ---
Reviewed and agree with EXEC. CREATIVE DIRECTOR documentation and FIMs charting.
[2019-02-02] MEDS: Ramipril 2.5 MG Capsule PO (08:32)
[2019-02-02] MEDS: Montelukast 10 MG Tablet PO ×2 (08:32→08:34)
[2019-02-02] MEDS: oxyCODONE 5 MG Tablet PO ×2 (08:32→20:58)
[2019-02-02] MEDS: buPROPion (SR) 150 MG Tablet.SA PO ×2 (08:32→20:57)
[2019-02-02] MEDS: Senna/Docusate Sodium 1 Tablet 2 TABLET PO ×2 (08:34→20:57)
[2019-02-02] MEDS: Escitalopram Oxalate 20 MG Tablet PO (08:34)
[2019-02-02] MEDS: Clopidogrel Bisulfate 75 MG Tablet PO (08:34)
[2019-02-02] MEDS: Ranolazine 500 MG Tablet 1000 MG PO ×2 (08:34→20:57)
[2019-02-02] MEDS: Meloxicam 15 MG Tablet PO (08:34)
[2019-02-02] MEDS: Pantoprazole Sodium 40 MG Tablet PO (08:34)
[2019-02-02] MEDS: Furosemide 80 MG Tablet PO (08:35)
[2019-02-02] MEDS: Carvedilol 25 MG Tablet PO ×2 (08:35→20:57)
[2019-02-02] MEDS: Isosorbide Mononitrate 60 MG Tablet PO ×2 (08:35→20:57)
[2019-02-02] MEDS: Loratadine 10 MG Tablet PO (08:35)
[2019-02-02 08:36] VITALS: O2SAT 95
[2019-02-02 08:40] VITALS: BP 116/60; PULSE 76; RESP 16; TEMP 36.7; O2SAT 95
[2019-02-02] MEDS: Furosemide 40 MG Tablet PO (17:38)
[2019-02-02] MEDS: Atorvastatin Calcium 40 MG Tablet PO (17:38)
[2019-02-02 19:34] VITALS: BP 136/74; PULSE 69; RESP 18; TEMP 36.7; O2SAT 94
[2019-02-02 20:45] VITALS: PULSE 69; RESP 18; O2SAT 94
[2019-02-02] MEDS: Gabapentin 300 MG Capsule PO (20:57)
[2019-02-02] MEDS: Aspirin 81 MG TAB.CHEW PO (22:36)
[2019-02-02] MEDS: Temazepam 15 MG Capsule PO (22:36)
[2019-02-03] MEDS: oxyCODONE 5 MG Tablet PO ×2 (06:30→20:37)
[2019-02-03 09:46] VITALS: BP 123/66; PULSE 70; RESP 18; TEMP 36.9; O2SAT 96
[2019-02-03] MEDS: Carvedilol 25 MG Tablet PO ×2 (09:47→20:36)
[2019-02-03] MEDS: Meloxicam 15 MG Tablet PO (09:47)
[2019-02-03] MEDS: Senna/Docusate Sodium 1 Tablet 2 TABLET PO ×2 (09:47→20:37)
[2019-02-03] MEDS: Ramipril 2.5 MG Capsule PO (09:47)
[2019-02-03] MEDS: Clopidogrel Bisulfate 75 MG Tablet PO (09:47)
[2019-02-03] MEDS: Escitalopram Oxalate 20 MG Tablet PO (09:47)
[2019-02-03] MEDS: Pantoprazole Sodium 40 MG Tablet PO (09:47)
[2019-02-03] MEDS: Loratadine 10 MG Tablet PO (09:47)
[2019-02-03] MEDS: Furosemide 80 MG Tablet PO (09:47)
[2019-02-03] MEDS: Ranolazine 500 MG Tablet 1000 MG PO ×2 (09:47→20:36)
[2019-02-03] MEDS: Isosorbide Mononitrate 60 MG Tablet PO ×2 (09:47→20:37)
[2019-02-03] MEDS: buPROPion (SR) 150 MG Tablet.SA PO ×2 (09:48→20:36)
--- NOTE | 2019-02-03 13:09 | PCM.PN.NEU ---
Patient Problems: Active and Suspected Problems (Last Reviewed 10/09/18 @ 16:23 by Divina Ahumada) Debility (Acute) Above knee amputation of right lower extremity (Acute) Subjective: New complaints. Tolerating therapies. No GI or complaints. He reports that he actually had radiation therapy for his sarcoma remotely, and his more recent amputation was because of radiation damage not because of recurrent tumor. - Physical Exam General: Alert, Oriented x3, Cooperative, No apparent distress Neurological: Cranial nerves II-XII grossly intact Psych/Mental Status: Normal Affect, Alert and oriented to time, place, person, mood and affect Vital Signs Temp Pulse Resp BP Pulse Ox 36.9 C 70 18 123/66 H 96 02/03/19 09:46 02/03/19 09:46 02/03/19 09:46 02/03/19 09:46 02/03/19 09:46 Oxygen Delivery Method Room Air Weight: 167.7 kg Body Mass Index (BMI) 51.5 Intake and Output for Last 24 Hours 02/01/19 02/02/19 02/03/19 23:59 23:59 23:59 Intake Total 300 / 300 Balance 300 / 300 Current Medications Generic Name Dose Route Start Last Admin Trade Name Freq PRN Reason Stop Dose Admin Aspirin 81 mg 01/30/19 22:00 02/02/19 22:36 Aspirin, Baby PO 81 mg QHS MARYANNE Administration Atorvastatin Calcium 40 mg 01/30/19 17:00 02/02/19 17:38 Lipitor PO 40 mg DINNER MARYANNE Administration Bisacodyl 10 mg 01/30/19 15:31 Dulcolax RECTAL .PRN X 1 PRN Constipation Bupropion HCl 150 mg 01/30/19 22:00 02/03/19 09:48 Wellbutrin Sr (150mg Tablets) PO 150 mg BID MARYANNE Administration Carvedilol 25 mg 01/30/19 22:00 02/03/19 09:47 Coreg PO 25 mg BID MARYANNE Administration Clopidogrel Bisulfate 75 mg 01/31/19 10:00 02/03/19 09:47 Plavix PO 75 mg DAILY MARYANNE Administration Escitalopram Oxalate 20 mg 01/31/19 10:00 02/03/19 09:47 Lexapro PO 20 mg DAILY MARYANNE Administration Furosemide 80 mg 01/31/19 10:00 02/03/19 09:47 Lasix PO 80 mg QAM MARYANNE Administration Furosemide 40 mg 01/30/19 17:00 02/02/19 17:38 Lasix PO 40 mg DINNER MARYANNE Administration Gabapentin 300 mg 01/30/19 22:00 02/02/19 20:57 Neurontin PO 300 mg QHS MARYANNE Administration Isosorbide Mononitrate 60 mg 01/30/19 22:00 02/03/19 09:47 Imdur PO 60 mg BID MARYANNE Administration Loratadine 10 mg 01/31/19 10:00 02/03/19 09:47 Claritin PO 10 mg DAILY MARYANNE Administration Magnesium Hydroxide 30 ml 01/30/19 15:31 01/31/19 18:28 Milk Of Magnesia PO 30 ml .PRN X 1 PRN Administration Constipation Meloxicam 15 mg 01/31/19 10:00 02/03/19 09:47 Mobic PO 15 mg DAILY MARYANNE Administration Montelukast Sodium 10 mg 01/31/19 10:00 02/02/19 08:34 Singulair PO 10 mg DAILY MARYANNE Administration Niacin 1,000 mg 01/30/19 22:00 02/02/19 22:36 Niaspan PO 1,000 mg QHS MARYANNE Administration Oxycodone HCl 5 - 10 mg 01/30/19 15:29 02/03/19 06:30 Oxyir PO 5 mg Q4H PRN PRN Administration SEVERE PAIN (6-10/10) Pantoprazole Sodium 40 mg 01/31/19 10:00 02/03/19 09:47 Protonix PO 40 mg DAILY MARYANNE Administration Potassium Chloride 40 meq 01/31/19 08:00 02/03/19 09:47 K-Dur PO 40 meq DAILYCM MARYANNE Administration Ramipril 2.5 mg 01/31/19 10:00 02/03/19 09:47 Altace PO 2.5 mg DAILY MARYANNE Administration Ranolazine 1,000 mg 01/30/19 22:00 02/03/19 09:47 Ranexa PO 1,000 mg BID MARYANNE Administration Senna/Docusate Sodium 2 tablet 01/30/19 22:00 02/03/19 09:47 Senokot-S, Amna-Colace PO 2 tablet BID MARYANNE Administration Temazepam 15 mg 01/30/19 22:00 02/02/19 22:36 Restoril PO 15 mg HS MARYANNE Administration Medical Necessity - Tobacco Use Smoking Status: Former smoker Tobacco Use: Non-smoker Assessment/Plan All Active Problems (Last Reviewed 10/09/18 @ 16:23 by Divina Ahumada) Debility (Acute) Above knee amputation of right lower extremity (Acute) Cellulitis of right lower extremity (Acute) History of tobacco abuse (Acute) The patient is a 63 year old M with PMH HTN, HLD, H/O myxoid sarcoma right thigh s/p chemotherapy/radiation 1996, s/p Right AKA by Dr. Rahman on 01/26/19 and flap closure 01/28/19, goal of returning home at or near his prior level of functional independence. used cane to ambulate previously, did drive, lives in a ranch house, has a ramp to go into the house. Plan -PT for gait stability -OT for ADLs -Bowel protocol -Analgesic PRN -Right AKA amputation-right LE NWB per orthopedics Dr. Pete recommendation. Further management per Dr. Pete recommendations -S/P right AKA wound vac- wound consult. 02/03: Stable -HTN-Ramipril 2.5 mg PO once daily, Coreg 25 mg PO BID. 02/03: Controlled -HLD- on Lipitor 40 mg PO q hs and Niacin -CAD s/p stents/CABG/ AICD- on ASA/Plavix -Chronic systolic CHF- s/p AICD, Lasix, potassium supplementation, Imdur and Ranolazine. 02/03: Asymptomatic currently -TARAN- on CPAP. 02/03: Has follow-up appointment scheduled on the we will cancel this since he is hospitalized. -Depression- on Lexapro and Bupropion -GI/DVT prophylaxis- on pantoprazole/ASA/Plavix/SCDs/IJEOMA volodymyre, DVT ASA/Plavix per orthopedics recommendations -Hospitalist consult -Further medical management per hospitalist recommendations -Fall precautions -Follow up with PCP, orthopedic surgery, oncology and cardiology on discharge.
[2019-02-03] MEDS: Furosemide 40 MG Tablet PO (17:20)
[2019-02-03] MEDS: Atorvastatin Calcium 40 MG Tablet PO (17:20)
[2019-02-03 20:15] VITALS: BP 124/66; PULSE 76; RESP 16; TEMP 36.7; O2SAT 96
[2019-02-03] MEDS: Gabapentin 300 MG Capsule PO (20:36)
[2019-02-03] MEDS: Aspirin 81 MG TAB.CHEW PO (22:51)
[2019-02-03] MEDS: Temazepam 15 MG Capsule PO (22:52)
--- NOTE | 2019-02-04 02:35 | NURSING ---
REVIEWED AND AGREE WITH MATERIAL REQUISITIONER'S FIM AND HANDOFF CHARTING.
[2019-02-04 08:22] VITALS: BP 106/70; PULSE 72; RESP 16; TEMP 36.7; O2SAT 95
[2019-02-04] MEDS: Loratadine 10 MG Tablet PO (09:31)
[2019-02-04] MEDS: Clopidogrel Bisulfate 75 MG Tablet PO (09:31)
[2019-02-04] MEDS: Montelukast 10 MG Tablet PO (09:31)
[2019-02-04] MEDS: Ranolazine 500 MG Tablet 1000 MG PO ×2 (09:31→20:07)
[2019-02-04] MEDS: Escitalopram Oxalate 20 MG Tablet PO (09:31)
[2019-02-04] MEDS: Isosorbide Mononitrate 60 MG Tablet PO ×2 (09:31→20:07)
[2019-02-04] MEDS: Ramipril 2.5 MG Capsule PO (09:31)
[2019-02-04] MEDS: Senna/Docusate Sodium 1 Tablet 2 TABLET PO ×2 (09:31→20:07)
[2019-02-04] MEDS: Carvedilol 25 MG Tablet PO ×2 (09:31→23:01)
[2019-02-04] MEDS: Pantoprazole Sodium 40 MG Tablet PO (09:31)
[2019-02-04] MEDS: buPROPion (SR) 150 MG Tablet.SA PO ×2 (09:31→20:09)
[2019-02-04] MEDS: Meloxicam 15 MG Tablet PO (09:31)
[2019-02-04] MEDS: Furosemide 80 MG Tablet PO (09:36)
--- NOTE | 2019-02-04 13:31 | PN.NEURO_ITS ---
Patient Problems: Active and Suspected Problems (Last Reviewed 10/09/18 @ 16:23 by Divina Ahumada) Debility (Acute) Above knee amputation of right lower extremity (Acute) Subjective: No complaints. He is currently sleeping without his CPAP machine on however he states when he naps this is what he prefers. No other complaints. Tolerating therapies. Pain is controlled. No GI or complaints. - Physical Exam General: Alert, Oriented x3, Cooperative, No apparent distress HEENT: Atraumatic, PERRLA, EOMI Lungs: Clear to auscultation Extremities: No Calf Tenderness Neurological: Cranial nerves II-XII grossly intact Psych/Mental Status: Normal Affect, Alert and oriented to time, place, person, mood and affect Vital Signs Temp Pulse Resp BP Pulse Ox 36.7 C 72 16 106/70 95 02/04/19 08:22 02/04/19 08:22 02/04/19 08:22 02/04/19 08:22 02/04/19 08:22 Oxygen Delivery Method Room Air Weight: 123.9 kg Body Mass Index (BMI) 51.5 Intake and Output for Last 24 Hours 02/02/19 02/03/19 02/04/19 23:59 23:59 23:59 Intake Total 600 / 600 Balance 600 / 600 Medical Necessity - Tobacco Use Smoking Status: Former smoker Tobacco Use: Non-smoker Assessment/Plan All Active Problems (Last Reviewed 10/09/18 @ 16:23 by Divina Ahumada) Debility (Acute) Above knee amputation of right lower extremity (Acute) Cellulitis of right lower extremity (Acute) History of tobacco abuse (Acute) The patient is a 63 year old M with PMH HTN, HLD, H/O myxoid sarcoma right thigh s/p chemotherapy/radiation 1996, s/p Right AKA by Dr. Rahman on 01/26/19 and flap closure 01/28/19, goal of returning home at or near his prior level of functional independence. used cane to ambulate previously, did drive, lives in a ranch house, has a ramp to go into the house. Plan -PT for gait stability. 02/04: Stable -OT for ADLs -Bowel protocol -Analgesic PRN -Right AKA amputation-right LE NWB per orthopedics Dr. Pete recommendation. Further management per Dr. Pete recommendations -S/P right AKA wound vac- wound consult. 02/03: Stable -HTN-Ramipril 2.5 mg PO once daily, Coreg 25 mg PO BID. 02/03: Controlled -HLD- on Lipitor 40 mg PO q hs and Niacin -CAD s/p stents/CABG/ AICD- on ASA/Plavix -Chronic systolic CHF- s/p AICD, Lasix, potassium supplementation, Imdur and Ranolazine. 02/03: Asymptomatic currently -TARAN- on CPAP. 02/03: Has follow-up appointment scheduled on the we will can feliz this since he is hospitalized. -Depression- on Lexapro and Bupropion -GI/DVT prophylaxis- on pantoprazole/ASA/Plavix/SCDs/IJEOMA volodymyre, DVT ASA/Plavix per orthopedics recommendations -Hospitalist consult -Further medical management per hospitalist recommendations -Fall precautions -Follow up with PCP, orthopedic surgery, oncology and cardiology on discharge.
[2019-02-04] MEDS: oxyCODONE 5 MG Tablet PO ×2 (15:51→20:16)
[2019-02-04] MEDS: Atorvastatin Calcium 40 MG Tablet PO (15:53)
[2019-02-04] MEDS: Furosemide 40 MG Tablet PO (15:53)
[2019-02-04] MEDS: Aspirin 81 MG TAB.CHEW PO (20:08)
[2019-02-04] MEDS: Gabapentin 300 MG Capsule PO (20:08)
[2019-02-04] MEDS: Temazepam 15 MG Capsule PO (20:12)
[2019-02-04 22:58] VITALS: BP 136/70; PULSE 64; RESP 18; TEMP 36.9; O2SAT 95
[2019-02-05 07:47] VITALS: BP 103/61; PULSE 63; RESP 16; TEMP 36.5; O2SAT 93
[2019-02-05] MEDS: Senna/Docusate Sodium 1 Tablet 2 TABLET PO ×2 (08:40→20:55)
[2019-02-05] MEDS: Loratadine 10 MG Tablet PO (08:40)
[2019-02-05] MEDS: Pantoprazole Sodium 40 MG Tablet PO (08:40)
[2019-02-05] MEDS: buPROPion (SR) 150 MG Tablet.SA PO ×2 (08:40→20:55)
[2019-02-05] MEDS: Meloxicam 15 MG Tablet PO (08:40)
[2019-02-05] MEDS: Montelukast 10 MG Tablet PO (08:40)
[2019-02-05] MEDS: Isosorbide Mononitrate 60 MG Tablet PO ×2 (08:40→20:55)
[2019-02-05] MEDS: Ranolazine 500 MG Tablet 1000 MG PO ×2 (08:40→20:55)
[2019-02-05] MEDS: Clopidogrel Bisulfate 75 MG Tablet PO (08:40)
[2019-02-05] MEDS: Furosemide 80 MG Tablet PO (08:41)
[2019-02-05] MEDS: Carvedilol 25 MG Tablet PO ×2 (08:41→20:55)
[2019-02-05] MEDS: Ramipril 2.5 MG Capsule PO (08:41)
[2019-02-05] MEDS: oxyCODONE 5 MG Tablet PO ×2 (08:41→20:55)
[2019-02-05] MEDS: Escitalopram Oxalate 20 MG Tablet PO (08:41)
[2019-02-05 08:44] VITALS: BP 116/56; PULSE 67
--- NOTE | 2019-02-05 10:02 | PCM.PN.NEU ---
Patient Problems: Active and Suspected Problems (Last Reviewed 10/09/18 @ 16:23 by Divina Ahumada) Debility (Acute) Above knee amputation of right lower extremity (Acute) Subjective: No new complaints. Staffed in team meeting. He is minimal assistance with physical therapy measures as well as occupational therapy measures although somewhat moderate assistance with lower body care. Per nursing staff vitals are stable, wound care is intact with good healing and wound VAC is in place. Pain is controlled. Plan to discharge on Saturday's 02/14. He is scheduled to follow-up with Dr. Rahman on 02/17. - Physical Exam General: Alert, Oriented x3, Cooperative, No apparent distress Neurological: Cranial nerves II-XII grossly intact Psych/Mental Status: Normal Affect Vital Signs Temp Pulse Resp BP Pulse Ox 36.5 C L 67 16 116/56 L 93 02/05/19 07:47 02/05/19 08:44 02/05/19 07:47 02/05/19 08:44 02/05/19 07:47 Oxygen Delivery Method Room Air Weight: 123.9 kg Body Mass Index (BMI) 51.5 Intake and Output for Last 24 Hours 02/03/19 02/04/19 02/05/19 23:59 23:59 23:59 Intake Total 600 / 600 260 / 260 Output Total 850 / 850 Balance 600 / 600 -590 / -590 Current Medications Generic Name Dose Route Start Last Admin Trade Name Freq PRN Reason Stop Dose Admin Aspirin 81 mg 01/30/19 22:00 02/04/19 20:08 Aspirin, Baby PO 81 mg QHS MARYANNE Administration Atorvastatin Calcium 40 mg 01/30/19 17:00 02/04/19 15:53 Lipitor PO 40 mg DINNER MARYANNE Administration Bisacodyl 10 mg 01/30/19 15:31 Dulcolax RECTAL .PRN X 1 PRN Constipation Bupropion HCl 150 mg 01/30/19 22:00 02/05/19 08:40 Wellbutrin Sr (150mg Tablets) PO 150 mg BID MARYANNE Administration Carvedilol 25 mg 01/30/19 22:00 02/05/19 08:41 Coreg PO 25 mg BID MARYANNE Administration Clopidogrel Bisulfate 75 mg 01/31/19 10:00 02/05/19 08:40 Plavix PO 75 mg DAILY MARYANNE Administration Escitalopram Oxalate 20 mg 01/31/19 10:00 02/05/19 08:41 Lexapro PO 20 mg DAILY MARYANNE Administration Furosemide 80 mg 01/31/19 10:00 02/05/19 08:41 Lasix PO 80 mg QAM MARYANNE Administration Furosemide 40 mg 01/30/19 17:00 02/04/19 15:53 Lasix PO 40 mg DINNER MARYANNE Administration Gabapentin 300 mg 01/30/19 22:00 02/04/19 20:08 Neurontin PO 300 mg QHS MARYANNE Administration Isosorbide Mononitrate 60 mg 01/30/19 22:00 02/05/19 08:40 Imdur PO 60 mg BID MARYANNE Administration Loratadine 10 mg 01/31/19 10:00 02/05/19 08:40 Claritin PO 10 mg DAILY MARYANNE Administration Magnesium Hydroxide 30 ml 01/30/19 15:31 01/31/19 18:28 Milk Of Magnesia PO 30 ml .PRN X 1 PRN Administration Constipation Meloxicam 15 mg 01/31/19 10:00 02/05/19 08:40 Mobic PO 15 mg DAILY MARYANNE Administration Montelukast Sodium 10 mg 01/31/19 10:00 02/05/19 08:40 Singulair PO 10 mg DAILY MARYANNE Administration Niacin 1,000 mg 01/30/19 22:00 02/04/19 20:08 Niaspan PO 1,000 mg QHS MARYANNE Administration Oxycodone HCl 5 - 10 mg 01/30/19 15:29 02/05/19 08:41 Oxyir PO 10 mg Q4H PRN PRN Administration SEVERE PAIN (6-10/10) Pantoprazole Sodium 40 mg 01/31/19 10:00 02/05/19 08:40 Protonix PO 40 mg DAILY MARYANNE Administration Potassium Chloride 40 meq 01/31/19 08:00 02/05/19 08:40 K-Dur PO 40 meq DAILYCM MARYANNE Administration Ramipril 2.5 mg 01/31/19 10:00 02/05/19 08:41 Altace PO 2.5 mg DAILY MARYANNE Administration Ranolazine 1,000 mg 01/30/19 22:00 02/05/19 08:40 Ranexa PO 1,000 mg BID MARYANNE Administration Senna/Docusate Sodium 2 tablet 01/30/19 22:00 02/05/19 08:40 Senokot-S, Amna-Colace PO 2 tablet BID MARYANNE Administration Temazepam 15 mg 02/04/19 22:00 02/04/19 20:12 Restoril PO 15 mg QHS MARYANNE Administration Medical Necessity - Tobacco Use Smoking Status: Former smoker Tobacco Use: Non-smoker Assessment/Plan All Active Problems (Last Reviewed 10/09/18 @ 16:23 by Divina Ahumada) Debility (Acute) Above knee amputation of right lower extremity (Acute) Cellulitis of right lower extremity (Acute) History of tobacco abuse (Acute) The patient is a 63 year old M with PMH HTN, HLD, H/O myxoid sarcoma right thigh s/p chemotherapy/radiation 1996, s/p Right AKA by Dr. Rahman on 01/26/19 and flap closure 01/28/19, goal of returning home at or near his prior level of functional independence. used cane to ambulate previously, did drive, lives in a ranch house, has a ramp to go into the house. Plan -PT for gait stability. 02/04: Stable -OT for ADLs -Bowel protocol -Analgesic PRN -Right AKA amputation-right LE NWB per orthopedics Dr. Pete recommendation. Further management per Dr. Pete recommendations -S/P right AKA wound vac- wound consult. 02/03: Stable -HTN-Ramipril 2.5 mg PO once daily, Coreg 25 mg PO BID. 35: Controlled -HLD- on Lipitor 40 mg PO q hs and Niacin -CAD s/p stents/CABG/ AICD- on ASA/Plavix -Chronic systolic CHF- s/p AICD, Lasix, potassium supplementation, Imdur and Ranolazine. 35: Asymptomatic currently -TARAN- on CPAP. 5: Has follow-up appointment scheduled on the we will cancel this since he is hospitalized. -Depression- on Lexapro and Bupropion -GI/DVT prophylaxis- on pantoprazole/ASA/Plavix/SCDs/IJEOMA hose, DVT ASA/Plavix per orthopedics recommendations -Hospitalist consult -Further medical management per hospitalist recommendations -Fall precautions -Follow up with PCP, orthopedic surgery, oncology and cardiology on discharge.
--- NOTE | 2019-02-05 10:39 | NURSING ---
discussed with speech therapy and pa removed. pt voiced understanding to use call light for needs.
--- NOTE | 2019-02-05 11:36 | CASEMGMT ---
Team meeting held. Patient present, no support person present. Patient approved 15 Medicare days with a discharge on or by 02/14/19. Patient plans to continue with stay per team recommendation. Patient reporting to have a walker already set up within the home and to have a ramp set up as well. At this time patient is currently utilizing a wound van and will require home health nursing for wound care management. Therapy team did not specify any continued therapy recommendations, will follow up on this. Patient to be re-teamed next with a plan to discharge to home with family on 02/14/19. Patient family does work during the day. Support given. Will continue to follow. Elham DAMON, AMANDA
[2019-02-05] MEDS: Furosemide 40 MG Tablet PO (17:11)
[2019-02-05] MEDS: Atorvastatin Calcium 40 MG Tablet PO (17:11)
[2019-02-05 20:12] VITALS: BP 141/77; PULSE 70; RESP 16; TEMP 36.3; O2SAT 96
[2019-02-05] MEDS: Gabapentin 300 MG Capsule PO (22:59)
[2019-02-05] MEDS: Temazepam 15 MG Capsule PO (22:59)
[2019-02-05] MEDS: Aspirin 81 MG TAB.CHEW PO (22:59)
--- NOTE | 2019-02-06 03:46 | NURSING ---
Reviewed and agree with LPNs fims and handoff
--- NOTE | 2019-02-06 07:36 | PCM.PN.HOSP ---
Patient Problems: Active and Suspected Problems (Last Reviewed 10/09/18 @ 16:23 by Divina Ahumada) Debility (Acute) Above knee amputation of right lower extremity (Acute) Subjective: Patient was seen and examined. He denied any new complains. He feels well. Objective: General: Alert, Oriented x3, Cooperative HEENT: Atraumatic, PERRLA, EOMI, Normocephalic Neck: Supple, No JVD, Negative Carotid Bruits Lungs: Clear to auscultation, Normal air movement, No rhonchi, No wheeze, No rales Cardiovascular: Regular rate, Regular Rhythm, Normal S1, Normal S2, No murmurs Abdomen: Bowel Sounds Present, Soft, Non Tender, Non-Distended Extremities: No edema, Capillary Refill Less than 3 Seconds, - - Status post right above-knee amputation. Dressing on amputation stump does not show bruise/hematoma. Suture line is intact on the fourth toe. Skin: No rashes, No breakdown Musculoskeletal: No Tenderness to Palpation of Joints or Extremities Neurological: Cranial nerves II-XII grossly intact Psych/Mental Status: Normal Affect, Appropriate Vitals/I&O's: Vital Signs Temp Pulse Resp BP Pulse Ox 97.4 F L 70 16 141/77 H 96 02/05/19 20:12 02/05/19 20:12 02/05/19 20:12 02/05/19 20:12 02/05/19 20:12 Oxygen Delivery Method Room Air Weight: 123.9 kg Body Mass Index (BMI) 51.5 Intake and Output for Last 24 Hours 02/04/19 02/05/19 02/06/19 23:59 23:59 23:59 Intake Total 600 / 600 700 / 700 Output Total 850 / 850 Balance 600 / 600 -150 / -150 Current Medications Aspirin (Aspirin, Baby) 81 mg PO QHS [facility] Last Admin: 02/05/19 22:59 Dose: 81 mg Atorvastatin Calcium (Lipitor) 40 mg PO DINNER [facility] Last Admin: 02/05/19 17:11 Dose: 40 mg Bisacodyl (Dulcolax) 10 mg RECTAL .PRN X 1 PRN PRN Reason: Constipation Bupropion HCl (Wellbutrin Sr (150mg Tablets)) 150 mg PO BID [facility] Last Admin: 02/05/19 20:55 Dose: 150 mg Carvedilol (Coreg) 25 mg PO BID [facility] Last Admin: 02/05/19 20:55 Dose: 25 mg Clopidogrel Bisulfate (Plavix) 75 mg PO DAILY [facility] Last Admin: 02/05/19 08:40 Dose: 75 mg Escitalopram Oxalate (Lexapro) 20 mg PO DAILY [facility] Last Admin: 02/05/19 08:41 Dose: 20 mg Furosemide (Lasix) 80 mg PO QAM [facility] Last Admin: 02/05/19 08:41 Dose: 80 mg Furosemide (Lasix) 40 mg PO DINNER [facility] Last Admin: 02/05/19 17:11 Dose: 40 mg Gabapentin (Neurontin) 300 mg PO QHS [facility] Last Admin: 02/05/19 22:59 Dose: 300 mg Isosorbide Mononitrate (Imdur) 60 mg PO BID [facility] Last Admin: 02/05/19 20:55 Dose: 60 mg Loratadine (Claritin) 10 mg PO DAILY [facility] Last Admin: 02/05/19 08:40 Dose: 10 mg Magnesium Hydroxide (Milk Of Magnesia) 30 ml PO .PRN X 1 PRN PRN Reason: Constipation Last Admin: 01/31/19 18:28 Dose: 30 ml Meloxicam (Mobic) 15 mg PO DAILY [facility] Last Admin: 02/05/19 08:40 Dose: 15 mg Montelukast Sodium (Singulair) 10 mg PO DAILY [facility] Last Admin: 02/05/19 08:40 Dose: 10 mg Niacin (Niaspan) 1,000 mg PO QHS [facility] Last Admin: 02/05/19 22:59 Dose: 1,000 mg Oxycodone HCl (Oxyir) 5 - 10 mg PO Q4H PRN PRN PRN Reason: SEVERE PAIN (6-10/10) Last Admin: 02/05/19 20:55 Dose: 10 mg Pantoprazole Sodium (Protonix) 40 mg PO DAILY [facility] Last Admin: 02/05/19 08:40 Dose: 40 mg Potassium [facility]lor[facility] ([facility]) [facility] Last Admin: 02/05/19 08:40 Dose: 40 meq Ramipril (Altace) 2.5 mg PO DAILY [facility] Last Admin: 02/05/19 08:41 Dose: 2.5 mg Ranolazine (Ranexa) 1,000 mg PO BID [facility] Last Admin: 02/05/19 20:55 Dose: 1,000 mg Senna/Docusate Sodium (Senokot-S, Amna-Colace) 2 tablet PO BID [facility] Last Admin: 02/05/19 20:55 Dose: 2 tablet Temazepam (Restoril) 15 mg PO QHS [facility] Last Admin: 02/05/19 22:59 Dose: 15 mg Medical Necessity - Tobacco Use Smoking Status: Former smoker Tobacco Use: Non-smoker Assessment/Plan All Active Problems (Last Reviewed 10/09/18 @ 16:23 by Divina Ahumada) Debility (Acute) Above knee amputation of right lower extremity (Acute) Cellulitis of right lower extremity (Acute) History of tobacco abuse (Acute) 63 y/o male with PMHx of CAD s/p CABG and PCI, Hypertension, Hyperlipidemia, Depression, TARAN, GERD, Chronic Systolic heart failure most probably ischemic Cardiomyopathy, History of Right thigh myosarcoma s/p remote radiation with chronic lymphedema admitted on 01/30/19 with recent Right AKA. 1. Debility s/p right AKA secondary to chronic lymphedema as a result of right thigh myosarcoma Status post radiation approximaStatus post wound vac Will continue with therapy 2. Chronic systolic CHF/ischemic cardiomyopathy/status post AICD, stable On Lasix, Ramipril 3. CAD status post CABG/PTCA, on aspirin, statin, Plavix, carvedilol, isosorbide. 4. Hypertension, on enalapril, Coreg, Imdur regimen. 5. Hyperlipidemia, on statin. 6. Depression, on Lexapro and bupropion regimen. 7. TARAN on CPAP QHS 8. GERD, on PI. DVT prophylaxis-SCD/ASA/Plavix per ortho recommendations Code Visit Inpatient E&M: 74688 Subs Hosp L2
[2019-02-06 08:08] VITALS: BP 110/62; PULSE 75; RESP 16; TEMP 36.4; O2SAT 94
[2019-02-06] MEDS: Senna/Docusate Sodium 1 Tablet 2 TABLET PO ×2 (08:38→21:52)
[2019-02-06] MEDS: buPROPion (SR) 150 MG Tablet.SA PO ×2 (08:38→21:52)
[2019-02-06] MEDS: Ramipril 2.5 MG Capsule PO (08:38)
[2019-02-06] MEDS: Loratadine 10 MG Tablet PO (08:38)
[2019-02-06] MEDS: Montelukast 10 MG Tablet PO (08:38)
[2019-02-06] MEDS: Clopidogrel Bisulfate 75 MG Tablet PO (08:38)
[2019-02-06] MEDS: Pantoprazole Sodium 40 MG Tablet PO (08:38)
[2019-02-06] MEDS: Meloxicam 15 MG Tablet PO (08:38)
[2019-02-06] MEDS: Ranolazine 500 MG Tablet 1000 MG PO ×2 (08:38→21:51)
[2019-02-06] MEDS: Escitalopram Oxalate 20 MG Tablet PO (08:38)
[2019-02-06] MEDS: Isosorbide Mononitrate 60 MG Tablet PO ×2 (08:38→21:51)
[2019-02-06] MEDS: Furosemide 80 MG Tablet PO (08:38)
[2019-02-06] MEDS: Carvedilol 25 MG Tablet PO ×2 (08:39→21:51)
[2019-02-06] MEDS: oxyCODONE 5 MG Tablet PO ×3 (08:40→23:01)
--- NOTE | 2019-02-06 11:19 | PCM.PN.NEU ---
Patient Problems: Active and Suspected Problems (Last Reviewed 10/09/18 @ 16:23 by Divina Ahumada) Debility (Acute) Above knee amputation of right lower extremity (Acute) Subjective: No issues overnight. Care discussed with the nursing staff. Further therapy details as noted in the PT/OT notes. - Physical Exam General: Alert HEENT: Normocephalic Neck: Supple Lungs: Normal air movement Cardiovascular: Normal S1, Normal S2 Abdomen: Bowel Sounds Present Extremities: No cyanosis Neurological: Cranial nerves II-XII grossly intact, Deep Tendon Reflexes 2+/4 and Symmetrical, Neuro grossly intact, Motor Exam 5/5 strength throughout, Muscle tone normal, Sensory exam intact to light touch and pain, Coordination normal, - - Right AKA s/p wound vac Psych/Mental Status: Normal Affect Vital Signs Temp Pulse Resp BP Pulse Ox 97.6 F L 75 16 110/62 94 02/06/19 08:08 02/06/19 08:08 02/06/19 08:08 02/06/19 08:08 02/06/19 08:08 Oxygen Delivery Method Room Air Weight: 123.9 kg Body Mass Index (BMI) 51.5 Intake and Output for Last 24 Hours 02/04/19 02/05/19 02/06/19 23:59 23:59 23:59 Intake Total 600 / 600 700 / 700 360 / 360 Output Total 850 / 850 Balance 600 / 600 -150 / -150 360 / 360 Medical Necessity - Tobacco Use Smoking Status: Former smoker Tobacco Use: Non-smoker Assessment/Plan All Active Problems (Last Reviewed 10/09/18 @ 16:23 by Divina Ahumada) Debility (Acute) Above knee amputation of right lower extremity (Acute) Cellulitis of right lower extremity (Acute) History of tobacco abuse (Acute) The patient is a 63 year old M with PMH HTN, HLD, H/O myxoid sarcoma right thigh s/p chemotherapy/radiation 1996, complicated by chronic right LE lymphedema, CAD s/p stent, CABG, chronic systolic CHF, S/P AICD, TARAN on CPAP, morbid obesity admitted to [facility] on 01/30/19, with debility s/p Right AKA by Dr. Rahman on 01/26/19 and flap closure 01/28/19, for > 3 hrs therapy daily with a goal of returning home at or near his prior level of functional independence. Per patient he had chronic right LE lymphedema for which right AKA was done, per patient he lives with his daughter, son, used cane to ambulate previously, did drive, lives in a ranch house, has a ramp to go into the house, denies any frequent falls. He denies severe pain in the stump at present, denies any focal motor weakness, has chronic right thigh sensory loss per patient, denies any visual disturbances, chest pain, fever or speech disturbances. Plan -PT for gait stability -OT for ADLs -Bowel protocol -Analgesic PRN -Right AKA amputation-right LE NWB per orthopedics Dr. Pete recommendation. Further management per Dr. Pete recommendations -S/P right AKA wound vac- wound consult -HTN-Ramipril 2.5 mg PO once daily, Coreg 25 mg PO BID -HLD- on Lipitor 40 mg PO q hs and Niacin -CAD s/p stents/CABG/ AICD- on ASA/Plavix -Chronic systolic CHF- s/p AICD, Lasix, potassium supplementation, Imdur and Ranolazine -TARAN- on CPAP -Depression- on Lexapro and Bupropion -GI/DVT prophylaxis- on pantoprazole/ASA/Plavix/SCDs/IJEOMA hose, DVT ASA/Plavix per orthopedics recommendations -Hospitalist consult -Further medical management per hospitalist recommendations -Fall precautions -Follow up with PCP, orthopedic surgery, oncology and cardiology on discharge.
--- NOTE | 2019-02-06 11:23 | PN.NEURO_ITS ---
Patient Problems: Active and Suspected Problems (Last Reviewed 10/09/18 @ 16:23 by Divina Ahumada) Debility (Acute) Above knee amputation of right lower extremity (Acute) Subjective: No issues overnight. Care discussed with the nursing staff. Further therapy details as noted in the PT/OT notes. - Physical Exam General: Alert HEENT: Normocephalic Neck: Supple Lungs: Normal air movement Cardiovascular: Normal S1, Normal S2 Abdomen: Bowel Sounds Present Extremities: No cyanosis Neurological: Cranial nerves II-XII grossly intact, Deep Tendon Reflexes 2+/4 and Symmetrical, Neuro grossly intact, Motor Exam 5/5 strength throughout, Muscle tone normal, Sensory exam intact to light touch and pain, Coordination no rmal, - - Right AKA s/p wound vac Psych/Mental Status: Normal Affect Vital Signs Temp Pulse Resp BP Pulse Ox 97.6 F L 75 16 110/62 94 02/06/19 08:08 02/06/19 08:08 02/06/19 08:08 02/06/19 08:08 02/06/19 08:08 Oxygen Delivery Method Room Air Weight: 123.9 kg Body Mass Index (BMI) 51.5 Intake and Output for Last 24 Hours 02/04/19 02/05/19 02/06/19 23:59 23:59 23:59 Intake Total 600 / 600 700 / 700 360 / 360 Output Total 850 / 850 Balance 600 / 600 -150 / -150 360 / 360 Medical Necessity - Tobacco Use Smoking Status: Former smoker Tobacco Use: Non-smoker Assessment/Plan All Active Problems (Last Reviewed 10/09/18 @ 16:23 by Divina Ahumada) Debility (Acute) Above knee amputation of right lower extremity (Acute) Cellulitis of right lower extremity (Acute) History of tobacco abuse (Acute) The patient is a 63 year old M with PMH HTN, HLD, H/O myxoid sarcoma right thigh s/p chemotherapy/radiation 1996, complicated by chronic right LE lymphedema, CAD s/p stent, CABG, chronic systolic CHF, S/P AICD, TARAN on CPAP, morbid obesity admitted to [facility] on 01/30/19, with debility s/p Right AKA by Dr. Rahman on 01/26/19 and flap closure 01/28/19, for > 3 hrs therapy daily with a goal of returning home at or near his prior level of functional independence. Per patient he had chronic right LE lymphedema for which right AKA was done, per patient he lives with his daughter, son, used cane to ambulate previously, did drive, lives in a ranch house, has a ramp to go into the house, denies any frequent falls. He denies severe pain in the stump at present, denies any focal motor weakness, has chronic right thigh sensory loss per patient, denies any visual disturbances, chest pain, fever or speech disturbances. Plan -PT for gait stability -OT for ADLs -Bowel protocol -Analgesic PRN -Right AKA amputation-right LE NWB per orthopedics Dr. Pete recommendation. Further management per Dr. Pete recommendations -S/P right AKA wound vac- wound consult -HTN-Ramipril 2.5 mg PO once daily, Coreg 25 mg PO BID -HLD- on Lipitor 40 mg PO q hs and Niacin -CAD s/p stents/CABG/ AICD- on ASA/Plavix -Chronic systolic CHF- s/p AICD, Lasix, potassium supplementation, Imdur and Ranolazine -TARAN- on CPAP -Depression- on Lexapro and Bupropion -GI/DVT prophylaxis- on pantoprazole/ASA/Plavix/SCDs/IJEOMA volodymyre, DVT ASA/Plavix per orthopedics recommendations -Hospitalist consult -Further medical management per hospitalist recommendations -Fall precautions -Follow up with PCP, orthopedic surgery, oncology and cardiology on discharge.
--- NOTE | 2019-02-06 14:00 | DS.PCM_ITS ---
Rehab Discharge Summary DATE OF ADMISSION: 01/30/19 DATE OF DISCHARGE: 02/12/2019 - Rehab Diagnosis Debility s/p right AKA Patient Problems: Active and Suspected Problems (Last Reviewed 10/09/18 @ 16:23 by Divina Ahumada) Debility (Acute) Above knee amputation of right lower extremity (Acute) Subjective: No issues overnight. Care discussed with the nursing staff. Staffed in the team meeting today. All questions were answered. Further therapy details are PT/OT notes. Patient wants to be discharged today, okay from PT and OT standpoint. Wound VAC was removed by the wound nurse Bethany at the recommendation of surgery. Very minimal drainage. Patient to be discharged home, wheelchair ordered. Patient should not be driving until he meets his surgeon and is cleared by surgery. - Physical Exam General: Alert HEENT: Normocephalic Neck: Supple Lungs: Normal air movement Cardiovascular: Normal S1, Normal S2 Abdomen: Bowel Sounds Present Extremities: No cyanosis Neurological: - - Cranial nerves II-XII grossly intact, Deep Tendon Reflexes 2+/4 and Symmetrical, Neuro grossly intact, Motor Exam 5/5 strength throughout, Muscle tone normal, Sensory exam intact to light touch and pain, Coordination normal, - - Right AKA s/p wound vac Psych/Mental Status: Normal Affect Vital Signs Temp Pulse Resp BP Pulse Ox 97.6 F L 75 16 110/62 94 02/06/19 08:08 02/06/19 08:08 02/06/19 08:08 02/06/19 08:08 02/06/19 08:08 Oxygen Delivery Method Room Air Weight: 123.9 kg Body Mass Index (BMI) 51.5 Intake and Output for Last 24 Hours 02/04/19 02/05/19 02/06/19 23:59 23:59 23:59 Intake Total 600 / 600 700 / 700 360 / 360 Output Total 850 / 850 Balance 600 / 600 -150 / -150 360 / 360 Discharge Diet: Low fat/ Low Cholesterol, - - Cardiac Weight Bearing Status: No weight bearing Call your doctor if your incision/area has: Continuous Slow Oozing, Sudden Increased Bleeding, Increased Pain/ Swelling, Increased Redness, Foul Smelling Discharge, Swelling at the incision site Call your doctor if you observe: Fever of 101 or Higher, Coldness, Increased Pain, Numbness or Tingling, Change in Color, Inability to urinate, Inability to have a bowel movement, Using more than one pad per hour, Shortness of breath, Dizziness, Fainting spells, Swelling in the ankles, Chest pain, Prolonged hiccoughing, Increased palpitations (irregular heartbeat), Calf discomfort, Uncontrolled pain Cleanse incision/area with: Do not get Incision Wet, Keep Dressing Clean & Dry Home Medications: Medications to take at Discharge Montelukast [Singulair] 10 mg PO DAILY 10/05/13 Niacin SA [Niaspan] 1,000 mg PO QHS 10/05/13 Escitalopram Oxalate [Lexapro] 20 mg PO DAILY 11/02/14 Temazepam [Restoril] 15 mg PO QHS 05/24/17 Aspirin [Aspirin, Baby] 81 mg PO QHS 06/09/17 gabapentin 600 mg tablet 300 mg PO QHS tab 01/06/18 loratadine 10 mg tablet 10 mg PO QDAY 01/06/18 bupropion HCl SR 150 mg tablet,12 hr sustained-release 150 mg PO BID 01/08/18 pantoprazole 40 mg tablet,delayed release 40 mg PO DAILY tab 01/08/18 nitroglycerin 0.4 mg sublingual tablet 0.4 mg SUBLINGUAL Q5M PRN #25 tab 01/15/18 potassium chloride ER 20 mEq tablet,extended release 40 meq PO QDAY #180 tab 05/20/18 ramipril 2.5 mg capsule 2.5 mg PO DAILY #90 cap 06/24/18 Furosemide [Lasix] 40 mg PO DINNER 07/11/18 Pen G Toan/Pen G Procaine [Bicillin C-R 900-300 Syringe] 1,200,000 unit IM QMONTH 07/11/18 ranolazine ER 1,000 mg tablet,extended release,12 hr 1,000 mg PO BID #180 tab 09/01/18 atorvastatin 40 mg tablet 40 mg PO DINNER #30 tab 12/30/18 Carvedilol [Coreg] 25 mg PO BID 01/30/19 Clopidogrel Bisulfate [Plavix] 75 mg PO DAILY 01/30/19 Isosorbide Mononitrate [Imdur] 60 mg PO BID 01/30/19 Furosemide [Lasix] 80 mg PO QAM tablet 02/06/19 Primary Care Physician: Speedy Boswell MD [Primary Care Provider] - Please follow up with your Primary Care Physician in: Follow up with PCP in 1-2 weeks When: Follow up with orthopedics surgery as scheduled When: Follow up with Cardiology in 1-2 weeks When: Follow up with Oncology in 1-2 weeks Disposition: Home Minutes spent on discharge:: 30 Patient Condition:: Stable Rehab Course The patient is a 63 year old M with PMH HTN, HLD, H/O myxoid sarcoma right thigh s/p chemotherapy/radiation 1996, complicated by chronic right LE lymphedema, CAD s/p stent, CABG, chronic systolic CHF, S/P AICD, TARAN on CPAP, morbid obesity admitted to [facility] on 01/30/19, with debility s/p Right AKA by Dr. Rahman on 01/26/19 and flap closure 01/28/19, for > 3 hrs therapy daily with a goal of returning home at or near his prior level of functional independence. Per patient he had chronic right LE lymphedema for which right AKA was done, per patient he lives with his daughter, son, used cane to ambulate previously, did drive, lives in a ranch house, has a ramp to go into the house, denies any frequent falls. He denies severe pain in the stump at present, denies any focal motor weakness, has chronic right thigh sensory loss per patient, denies any v isual disturbances, chest pain, fever or speech disturbances. He tolerated therapies well. Was admitted with wound vac, wound care was consulted. Hospitalist consult obtained and recommendations followed. He had further uncomplicated rehab stay. Wound VAC was removed prior to discharge by wound nurse Gilma following surgery recommendation. Follow up with PCP, orthopedic surgery, oncology and cardiology on discharge. Meaningful Use Info Meaningful Use Diagnoses (Choose all that apply): None applicable
--- NOTE | 2019-02-06 14:47 | CASEMGMT ---
Social Work Collaborating with patient and therapy. Therapy recommending for patient to have a wheelchair for in the home and community mobility. Patient agreeable to recommendation. Patient has no preference of [employer] equipment [employer], [facility] [employer] to be utilized. Patient will need a 22 wheelchair with removable leg rest per therapy. Patient plans to have family pickup driver shower bench prior to patient discharge to home. Support given. Will fax wheelchair order to [facility] [employer] when obtained. Proposed discharge date: 02/14/19 PLAN: Discharge to home with family. Elham DAMON, AMANDA
[2019-02-06] MEDS: Atorvastatin Calcium 40 MG Tablet PO (17:03)
[2019-02-06] MEDS: Furosemide 40 MG Tablet PO (17:03)
[2019-02-06 21:43] VITALS: BP 111/70; PULSE 67; RESP 18; TEMP 36.6; O2SAT 96
[2019-02-06] MEDS: Gabapentin 300 MG Capsule PO (23:01)
[2019-02-06] MEDS: Temazepam 15 MG Capsule PO (23:01)
[2019-02-06] MEDS: Aspirin 81 MG TAB.CHEW PO (23:01)
--- NOTE | 2019-02-07 00:42 | NURSING ---
Reviewed and agree with LPNs fims and handoff
[2019-02-07 07:18] VITALS: BP 114/67; PULSE 71; RESP 18; TEMP 36.8; O2SAT 98
[2019-02-07] MEDS: Senna/Docusate Sodium 1 Tablet 2 TABLET PO ×2 (07:23→22:10)
[2019-02-07] MEDS: Clopidogrel Bisulfate 75 MG Tablet PO (07:23)
[2019-02-07] MEDS: buPROPion (SR) 150 MG Tablet.SA PO ×2 (07:23→22:10)
[2019-02-07] MEDS: Pantoprazole Sodium 40 MG Tablet PO (07:23)
[2019-02-07] MEDS: Montelukast 10 MG Tablet PO (07:23)
[2019-02-07] MEDS: Ramipril 2.5 MG Capsule PO (07:23)
[2019-02-07] MEDS: Meloxicam 15 MG Tablet PO (07:23)
[2019-02-07] MEDS: Isosorbide Mononitrate 60 MG Tablet PO ×2 (07:23→22:10)
[2019-02-07] MEDS: Ranolazine 500 MG Tablet 1000 MG PO ×2 (07:23→22:11)
[2019-02-07] MEDS: Escitalopram Oxalate 20 MG Tablet PO (07:23)
[2019-02-07] MEDS: Loratadine 10 MG Tablet PO (07:23)
[2019-02-07] MEDS: Furosemide 80 MG Tablet PO (07:23)
[2019-02-07] MEDS: Carvedilol 25 MG Tablet PO ×2 (07:26→22:10)
[2019-02-07] MEDS: Atorvastatin Calcium 40 MG Tablet PO (16:50)
[2019-02-07] MEDS: Furosemide 40 MG Tablet PO (16:50)
[2019-02-07 19:17] VITALS: BP 134/76; PULSE 75; RESP 18; TEMP 36.7; O2SAT 95
[2019-02-07] MEDS: oxyCODONE 5 MG Tablet PO (20:13)
[2019-02-07] MEDS: Aspirin 81 MG TAB.CHEW PO (22:10)
[2019-02-07] MEDS: Gabapentin 300 MG Capsule PO (22:10)
[2019-02-07] MEDS: Temazepam 15 MG Capsule PO (22:14)
[2019-02-08 07:04] VITALS: BP 108/74; PULSE 75; RESP 18; TEMP 36.6; O2SAT 93
[2019-02-08] MEDS: Isosorbide Mononitrate 60 MG Tablet PO ×2 (09:07→21:30)
[2019-02-08] MEDS: Ramipril 2.5 MG Capsule PO (09:07)
[2019-02-08] MEDS: Loratadine 10 MG Tablet PO (09:07)
[2019-02-08] MEDS: Carvedilol 25 MG Tablet PO ×2 (09:07→21:31)
[2019-02-08] MEDS: Escitalopram Oxalate 20 MG Tablet PO (09:08)
[2019-02-08] MEDS: Furosemide 80 MG Tablet PO (09:08)
[2019-02-08] MEDS: Meloxicam 15 MG Tablet PO (09:08)
[2019-02-08] MEDS: Clopidogrel Bisulfate 75 MG Tablet PO (09:08)
[2019-02-08] MEDS: Ranolazine 500 MG Tablet 1000 MG PO ×2 (09:09→21:30)
[2019-02-08] MEDS: Montelukast 10 MG Tablet PO (09:09)
[2019-02-08] MEDS: Senna/Docusate Sodium 1 Tablet 2 TABLET PO ×2 (09:09→21:31)
[2019-02-08] MEDS: Pantoprazole Sodium 40 MG Tablet PO (09:09)
[2019-02-08] MEDS: buPROPion (SR) 150 MG Tablet.SA PO ×2 (09:09→21:31)
[2019-02-08] MEDS: Furosemide 40 MG Tablet PO (17:13)
[2019-02-08] MEDS: Atorvastatin Calcium 40 MG Tablet PO (17:13)
[2019-02-08] MEDS: oxyCODONE 5 MG Tablet PO (17:39)
--- NOTE | 2019-02-08 20:38 | PCM.PN.HOSP ---
Patient Problems: Active and Suspected Problems (Last Reviewed 10/09/18 @ 16:23 by Divina Ahumada) Debility (Acute) Above knee amputation of right lower extremity (Acute) Subjective: Patient was seen and examined. No new complains. Therapy is going well Objective: General: Alert, Oriented x3, Cooperative HEENT: Atraumatic, PERRLA, EOMI, Normocephalic Neck: Supple, No JVD, Negative Carotid Bruits Lungs: Clear to auscultation, Normal air movement, No rhonchi, No wheeze, No rales Cardiovascular: Regular rate, Regular Rhythm, Normal S1, Normal S2, No murmurs Abdomen: Bowel Sounds Present, Soft, Non Tender, Non-Distended Extremities: No edema, Capillary Refill Less than 3 Seconds, - - Status post right above-knee amputation. Dressing on amputation stump does not show bruise/hematoma. Suture line is intact on the fourth toe. Skin: No rashes, No breakdown Musculoskeletal: No Tenderness to Palpation of Joints or Extremities Neurological: Cranial nerves II-XII grossly intact Psych/Mental Status: Normal Affect, Appropriate Vitals/I&O's: Vital Signs Temp Pulse Resp BP Pulse Ox 97.9 F 75 18 108/74 93 02/08/19 07:04 02/08/19 07:04 02/08/19 07:04 02/08/19 07:04 02/08/19 07:04 Oxygen Delivery Method Room Air Weight: 123.9 kg Body Mass Index (BMI) 51.5 Intake and Output for Last 24 Hours 02/06/19 02/07/19 02/09/19 23:59 23:59 00:59 Intake Total 360 / 360 Output Total 700 / 700 Balance 360 / 360 -700 / -700 Current Medications Aspirin (Aspirin, Baby) 81 mg PO QHS [facility] Last Admin: 02/07/19 22:10 Dose: 81 mg Atorvastatin Calcium (Lipitor) 40 mg PO DINNER [facility] Last Admin: 02/08/19 17:13 Dose: 40 mg Bisacodyl (Dulcolax) 10 mg RECTAL .PRN X 1 PRN PRN Reason: Constipation Bupropion HCl (Wellbutrin Sr (150mg Tablets)) 150 mg PO BID [facility] Last Admin: 02/08/19 09:09 Dose: 150 mg Carvedilol (Coreg) 25 mg PO BID [facility] Last Admin: 02/08/19 09:07 Dose: 25 mg Clopidogrel Bisulfate (Plavix) 75 mg PO DAILY [facility] Last Admin: 02/08/19 09:08 Dose: 75 mg Escitalopram Oxalate (Lexapro) 20 mg PO DAILY [facility] Last Admin: 02/08/19 09:08 Dose: 20 mg Furosemide (Lasix) 80 mg PO QAM [facility] Last Admin: 02/08/19 09:08 Dose: 80 mg Furosemide (Lasix) 40 mg PO DINNER [facility] Last Admin: 02/08/19 17:13 Dose: 40 mg Gabapentin (Neurontin) 300 mg PO QHS [facility] Last Admin: 02/07/19 22:10 Dose: 300 mg Isosorbide Mononitrate (Imdur) 60 mg PO BID [facility] Last Admin: 02/08/19 09:07 Dose: 60 mg Loratadine (Claritin) 10 mg PO DAILY [facility] Last Admin: 02/08/19 09:07 Dose: 10 mg Magnesium Hydroxide (Milk Of Magnesia) 30 ml PO .PRN X 1 PRN PRN Reason: Constipation Last Admin: 01/31/19 18:28 Dose: 30 ml Meloxicam (Mobic) 15 mg PO DAILY [facility] Last Admin: 02/08/19 09:08 Dose: 15 mg Montelukast Sodium (Singulair) 10 mg PO DAILY [facility] Last Admin: 02/08/19 09:09 Dose: 10 mg Niacin (Niaspan) 1,000 mg PO QHS [facility] Last Admin: 02/07/19 22:10 Dose: 1,000 mg Oxycodone HCl (Oxyir) 5 - 10 mg PO Q4H PRN PRN PRN Reason: SEVERE PAIN (6-10/10) Last Admin: 02/08/19 17:39 Dose: 10 mg Pantoprazole Sodium (Protonix) 40 mg PO DAILY [facility] Last Admin: 02/08/19 09:09 Dose: 40 mg Potassium [facility] ([facility]) [facility] Last Admin: 02/08/19 09:07 Dose: 40 meq Ramipril (Altace) 2.5 mg PO DAILY [facility] Last Admin: 02/08/19 09:07 Dose: 2.5 mg Ranolazine (Ranexa) 1,000 mg PO BID [facility] Last Admin: 02/08/19 09:09 Dose: 1,000 mg Senna/Docusate Sodium (Senokot-S, Amna-Colace) 2 tablet PO BID [facility] Last Admin: 02/08/19 09:09 Dose: 2 tablet Temazepam (Restoril) 15 mg PO QHS [facility] Last Admin: 02/07/19 22:14 Dose: 15 mg Medical Necessity - Tobacco Use Smoking Status: Former smoker Tobacco Use: Non-smoker Assessment/Plan All Active Problems (Last Reviewed 10/09/18 @ 16:23 by Divina Ahumada) Debility (Acute) Above knee amputation of right lower extremity (Acute) Cellulitis of right lower extremity (Acute) History of tobacco abuse (Acute) 63 y/o male with PMHx of CAD s/p CABG and PCI, Hypertension, Hyperlipidemia, Depression, TARAN, GERD, Chronic Systolic heart failure most probably ischemic Cardiomyopathy, History of Right thigh myosarcoma s/p remote radiation with chronic lymphedema admitted on 01/30/19 with recent Right AKA. 1. Debility s/p right AKA secondary to chronic lymphedema as a result of right thigh myosarcoma status post wound vac, Will continue with therapy 2. Chronic systolic CHF/ischemic cardiomyopathy/status post AICD, stable, On Lasix, Ramipril 3. CAD status post CABG/PTCA, on aspirin, statin, Plavix, carvedilol, isosorbide. 4. Hypertension, on enalapril, Coreg, Imdur regimen. 5. Hyperlipidemia, on statin. 6. Depression, on Lexapro and bupropion regimen. 7. TARAN on CPAP QHS 8. GERD, on PI. DVT prophylaxis-SCD/ASA/Plavix per ortho recommendations Code Visit Inpatient E&M: 48770 Subs Hosp L2
[2019-02-08 21:20] VITALS: BP 113/45; PULSE 73; RESP 18; RESP 96; TEMP 36.4; O2SAT 96
[2019-02-08] MEDS: Gabapentin 300 MG Capsule PO (21:31)
[2019-02-08] MEDS: Temazepam 15 MG Capsule PO (23:32)
[2019-02-08] MEDS: Aspirin 81 MG TAB.CHEW PO (23:32)
--- NOTE | 2019-02-08 23:34 | NURSING ---
pt requested to have his asa and niacin and sleeping pill at this time
--- NOTE | 2019-02-09 02:15 | NURSING ---
REVIEWED AND AGREE WITH [facility] [employer] [facility]'S FIM AND HANDOFF CHARTING.
[2019-02-09 10:00] VITALS: BP 108/63; PULSE 78; RESP 16; TEMP 36.4; O2SAT 92
[2019-02-09] MEDS: buPROPion (SR) 150 MG Tablet.SA PO ×2 (10:45→20:05)
[2019-02-09] MEDS: Ranolazine 500 MG Tablet 1000 MG PO ×2 (10:45→20:04)
[2019-02-09] MEDS: Ramipril 2.5 MG Capsule PO (10:45)
[2019-02-09] MEDS: Pantoprazole Sodium 40 MG Tablet PO (10:45)
[2019-02-09] MEDS: Isosorbide Mononitrate 60 MG Tablet PO ×2 (10:45→20:02)
[2019-02-09] MEDS: Senna/Docusate Sodium 1 Tablet 2 TABLET PO ×2 (10:45→20:04)
[2019-02-09] MEDS: Escitalopram Oxalate 20 MG Tablet PO (10:46)
[2019-02-09] MEDS: Carvedilol 25 MG Tablet PO ×2 (10:46→20:03)
[2019-02-09] MEDS: Furosemide 80 MG Tablet PO (10:46)
[2019-02-09] MEDS: Loratadine 10 MG Tablet PO (10:46)
[2019-02-09] MEDS: Meloxicam 15 MG Tablet PO (10:47)
[2019-02-09] MEDS: Clopidogrel Bisulfate 75 MG Tablet PO (10:47)
[2019-02-09] MEDS: Montelukast 10 MG Tablet PO (11:50)
[2019-02-09] MEDS: oxyCODONE 5 MG Tablet PO (12:51)
--- NOTE | 2019-02-09 13:36 | PCM.PN.NEU ---
Patient Problems: Active and Suspected Problems (Last Reviewed 10/09/18 @ 16:23 by Divina Ahumada) Debility (Acute) Above knee amputation of right lower extremity (Acute) Subjective: No issues overnight. Care discussed with the nursing staff. - Physical Exam General: Alert HEENT: Normocephalic Neck: Supple Lungs: Normal air movement Cardiovascular: Normal S1, Normal S2 Abdomen: Bowel Sounds Present Extremities: No cyanosis Neurological: - - Cranial nerves II-XII grossly intact, Deep Tendon Reflexes 2+/4 and Symmetrical, Neuro grossly intact, Motor Exam 5/5 strength throughout, Muscle tone normal, Sensory exam intact to light touch and pain, Coordination normal, - - Right AKA s/p wound vac Psych/Mental Status: Normal Affect Vital Signs Temp Pulse Resp BP Pulse Ox 97.6 F L 78 16 108/63 92 02/09/19 10:00 02/09/19 10:00 02/09/19 10:00 02/09/19 10:00 02/09/19 10:00 Oxygen Delivery Method Room Air Weight: 123.9 kg Body Mass Index (BMI) 51.5 Intake and Output for Last 24 Hours 02/07/19 02/08/19 02/09/19 22:59 23:59 23:59 Output Total Balance Medical Necessity - Tobacco Use Smoking Status: Former smoker Tobacco Use: Non-smoker Assessment/Plan All Active Problems (Last Reviewed 10/09/18 @ 16:23 by Divina Ahumada) Debility (Acute) Above knee amputation of right lower extremity (Acute) Cellulitis of right lower extremity (Acute) History of tobacco abuse (Acute) The patient is a 63 year old M with PMH HTN, HLD, H/O myxoid sarcoma right thigh s/p chemotherapy/radiation 1996, complicated by chronic right LE lymphedema, CAD s/p stent, CABG, chronic systolic CHF, S/P AICD, TARAN on CPAP, morbid obesity admitted to [facility] on 01/30/19, with debility s/p Right AKA by Dr. Rahman on 01/26/19 and flap closure 01/28/19, for > 3 hrs therapy daily with a goal of returning home at or near his prior level of functional independence. Per patient he had chronic right LE lymphedema for which right AKA was done, per patient he lives with his daughter, son, used cane to ambulate previously, did drive, lives in a ranch house, has a ramp to go into the house, denies any frequent falls. He denies severe pain in the stump at present, denies any focal motor weakness, has chronic right thigh sensory loss per patient, denies any visual disturbances, chest pain, fever or speech disturbances. Plan -PT for gait stability -OT for ADLs -Bowel protocol -Analgesic PRN -Right AKA amputation-right LE NWB per orthopedics Dr. Pete recommendation. Further management per Dr. Pete recommendations -S/P right AKA wound vac- wound consult -HTN-Ramipril 2.5 mg PO once daily, Coreg 25 mg PO BID -HLD- on Lipitor 40 mg PO q hs and Niacin -CAD s/p stents/CABG/ AICD- on ASA/Plavix -Chronic systolic CHF- s/p AICD, Lasix, potassium supplementation, Imdur and Ranolazine -TARAN- on CPAP -Depression- on Lexapro and Bupropion -GI/DVT prophylaxis- on pantoprazole/ASA/Plavix/SCDs/IJEOMA liang, DVT ASA/Plavix per orthopedics recommendations -Hospitalist consult -Further medical management per hospitalist recommendations -Fall precautions -Follow up with PCP, orthopedic surgery, oncology and cardiology on discharge.
--- NOTE | 2019-02-09 13:37 | PN_ITS ---
Patient Problems: Active and Suspected Problems (Last Reviewed 10/09/18 @ 16:23 by Divina Ahumada) Debility (Acute) Above knee amputation of right lower extremity (Acute) Subjective: Patient is a 63-year-old gentleman who underwent right knee amputation following chronic lymphedema as a result of previous right leiomyosarcoma surgery Objective: GENERAL: cooperative HEENT: Atraumatic; moist oral mucosa EYES; Anicteric, Normal Conjunctiva NECK; supple, normal thyroid, no distended JVD. RESPIRATORY: Diminished to auscultation bilaterally, CARDIOVASCULAR: Regular S1 S2, no audible murmurs GI: soft, non-tender, normoactive bowel sounds, : No Renal angle tenderness; EXTREMITIES: Right AKA NEURO: Awake; no lateralizing signs. SKIN: No Rash PSYCH; Normal affect Vitals/I&O's: Vital Signs Temp Pulse Resp BP Pulse Ox 97.6 F L 78 16 108/63 92 02/09/19 10:00 02/09/19 10:00 02/09/19 10:00 02/09/19 10:00 02/09/19 10:00 Oxygen Delivery Method Room Air Weight: 123.9 kg Body Mass Index (BMI) 51.5 Intake and Output for Last 24 Hours 02/07/19 02/08/19 02/09/19 22:59 23:59 23:59 Output Total Balance Current Medications Aspirin (Aspirin, Baby) 81 mg PO QHS [facility] Last Admin: 02/08/19 23:32 Dose: 81 mg Atorvastatin Calcium (Lipitor) 40 mg PO DINNER [facility] Last Admin: 02/08/19 17:13 Dose: 40 mg Bisacodyl (Dulcolax) 10 mg RECTAL .PRN X 1 PRN PRN Reason: Constipation Bupropion HCl (Wellbutrin Sr (150mg Tablets)) 150 mg PO BID [facility] Last Admin: 02/09/19 10:45 Dose: 150 mg Carvedilol (Coreg) 25 mg PO BID [facility] Last Admin: 02/09/19 10:46 Dose: 25 mg Clopidogrel Bisulfate (Plavix) 75 mg PO DAILY [facility] Last Admin: 02/09/19 10:47 Dose: 75 mg Escitalopram Oxalate (Lexapro) 20 mg PO DAILY [facility] Last Admin: 02/09/19 10:46 Dose: 20 mg Furosemide (Lasix) 80 mg PO QAM [facility] Last Admin: 02/09/19 10:46 Dose: 80 mg Furosemide (Lasix) 40 mg PO DINNER [facility] Last Admin: 02/08/19 17:13 Dose: 40 mg Gabapentin (Neurontin) 300 mg PO QHS [facility] Last Admin: 02/08/19 21:31 Dose: 300 mg Isosorbide Mononitrate (Imdur) 60 mg PO BID [facility] Last Admin: 02/09/19 10:45 Dose: 60 mg Loratadine (Claritin) 10 mg PO DAILY [facility] Last Admin: 02/09/19 10:46 Dose: 10 mg Magnesium Hydroxide (Milk Of Magnesia) 30 ml PO .PRN X 1 PRN PRN Reason: Constipation Last Admin: 01/31/19 18:28 Dose: 30 ml Meloxicam (Mobic) 15 mg PO DAILY [facility] Last Admin: 02/09/19 10:47 Dose: 15 mg Montelukast Sodium (Singulair) 10 mg PO DAILY [facility] Last Admin: 02/09/19 11:50 Dose: 10 mg Niacin (Niaspan) 1,000 mg PO QHS [facility] Last Admin: 02/08/19 23:32 Dose: 1,000 mg Oxycodone HCl (Oxyir) 5 - 10 mg PO Q4H PRN PRN PRN Reason: SEVERE PAIN (6-09/10) Last Admin: 02/09/19 12:51 Dose: 10 mg Pantoprazole Sodium (Protonix) 40 mg PO DAILY [facility] Last Admin: 02/09/19 10:45 Dose: 40 mg [facility] ([facility]) [facility] Admin: 02/09/19 10:46 Dose: 40 meq Ramipril (Altace) 2.5 mg PO DAILY [facility] Last Admin: 02/09/19 10:45 Dose: 2.5 mg Ranolazine (Ranexa) 1,000 mg PO BID [facility] Last Admin: 02/09/19 10:45 Dose: 1,000 mg Senna/Docusate Sodium (Senokot-S, Amna-Colace) 2 tablet PO BID [facility] Last Admin: 02/09/19 10:45 Dose: 2 tablet Temazepam (Restoril) 15 mg PO QHS [facility] Last Admin: 02/08/19 23:32 Dose: 15 mg Medical Necessity - Tobacco Use Smoking Status: Former smoker Tobacco Use: Non-smoker Assessment/Plan All Active Problems (Last Reviewed 10/09/18 @ 16:23 by Divina Ahumada) Debility (Acute) Above knee amputation of right lower extremity (Acute) Cellulitis of right lower extremity (Acute) History of tobacco abuse (Acute) Patient is a 63-year-old gentleman who underwent right knee amputation following chronic lymphedema as a result of previous right leiomyosarcoma surgery 1. Debility following right AKA as a result of chronic lymphedema as a result of previous right leiomyosarcoma surgery 2. CAD with previous CABG 3. Ischemic cardiomyopathy status post AICD patient is on recommended medications including BURT inhibitors 4. Dyslipidemia-patient is on statin therapy, continued at home dose 5. Hypertension-blood pressure controlled, home medications continued with dose adjustment as needed 6. Depression patient is on Procan as well as Lexapro 7. Obstructive sleep apnea on CPAP at night 8. GERD patient is on PPI 9. DVT prophylaxis; patient is on dual antiplatelet therapy Code Visit Inpatient E&M: 27859 Subs Hosp L2
--- NOTE | 2019-02-09 15:25 | NURSING ---
wound photo: right stump
[2019-02-09] MEDS: Furosemide 40 MG Tablet PO (17:45)
[2019-02-09] MEDS: Atorvastatin Calcium 40 MG Tablet PO (17:45)
[2019-02-09 19:30] VITALS: RESP 16; O2SAT 95
[2019-02-09 19:34] VITALS: BP 100/55; PULSE 64; RESP 16; TEMP 36.5; O2SAT 95
[2019-02-09] MEDS: Gabapentin 300 MG Capsule PO (20:03)
[2019-02-09] MEDS: Aspirin 81 MG TAB.CHEW PO (21:14)
[2019-02-09] MEDS: Temazepam 15 MG Capsule PO (21:17)
[2019-02-10 07:38] VITALS: BP 134/66; PULSE 78; RESP 16; TEMP 36.7; O2SAT 94
[2019-02-10] MEDS: Clopidogrel Bisulfate 75 MG Tablet PO (07:54)
[2019-02-10] MEDS: Pantoprazole Sodium 40 MG Tablet PO (07:54)
[2019-02-10] MEDS: Ranolazine 500 MG Tablet 1000 MG PO ×2 (07:54→20:39)
[2019-02-10] MEDS: buPROPion (SR) 150 MG Tablet.SA PO ×2 (07:55→20:40)
[2019-02-10] MEDS: Escitalopram Oxalate 20 MG Tablet PO (07:55)
[2019-02-10] MEDS: Senna/Docusate Sodium 1 Tablet 2 TABLET PO ×2 (07:55→20:39)
[2019-02-10] MEDS: Montelukast 10 MG Tablet PO (07:56)
[2019-02-10] MEDS: Isosorbide Mononitrate 60 MG Tablet PO ×2 (07:56→20:40)
[2019-02-10] MEDS: Furosemide 80 MG Tablet PO (07:57)
[2019-02-10] MEDS: Carvedilol 25 MG Tablet PO ×2 (07:57→20:39)
[2019-02-10] MEDS: Meloxicam 15 MG Tablet PO (07:58)
[2019-02-10] MEDS: Loratadine 10 MG Tablet PO (07:58)
[2019-02-10] MEDS: Ramipril 2.5 MG Capsule PO (07:58)
--- NOTE | 2019-02-10 15:18 | PN.NEURO_ITS ---
Patient Problems: Active and Suspected Problems (Last Reviewed 10/09/18 @ 16:23 by Divina Ahumada) Debility (Acute) Above knee amputation of right lower extremity (Acute) Subjective: No issues overnight. Care discussed with the nursing staff. - Physical Exam General: Alert HEENT: Normocephalic Neck: Supple Lungs: Normal air movement Cardiovascular: Normal S1, Normal S2 Abdomen: Bowel Sounds Present Extremities: No cyanosis Neurological: - - Cranial nerves II-XII grossly intact, Deep Tendon Reflexes 2+/4 and Symmetrical, Neuro grossly intact, Motor Exam 5/5 strength throughout, Muscle tone normal, Sensory exam intact to light touch and pain, Coordination normal, - - Right AKA s/p wound vac Psych/Mental Status: Normal Affect Vital Signs Temp Pulse Resp BP Pulse Ox 98.1 F 78 16 134/66 H 94 02/10/19 07:38 02/10/19 07:38 02/10/19 07:38 02/10/19 07:38 02/10/19 07:38 Oxygen Delivery Method Room Air Weight: 123.9 kg Body Mass Index (BMI) 51.5 Intake and Output for Last 24 Hours 02/08/19 02/09/19 02/10/19 23:59 23:59 23:59 Intake Total 440 / 440 Balance 440 / 440 Medical Necessity - Tobacco Use Smoking Status: Former smoker Tobacco Use: Non-smoker Assessment/Plan All Active Problems (Last Reviewed 10/09/18 @ 16:23 by Divina Ahumada) Debility (Acute) Above knee amputation of right lower extremity (Acute) Cellulitis of right lower extremity (Acute) History of tobacco abuse (Acute) The patient is a 63 year old M with PMH HTN, HLD, H/O myxoid sarcoma right thigh s/p chemotherapy/radiation 1996, complicated by chronic right LE lymphedema, CAD s/p stent, CABG, chronic systolic CHF, S/P AICD, TARAN on CPAP, morbid obesity admitted to [facility] on 01/30/19, with debility s/p Right AKA by Dr. Rahman on 01/26/19 and flap closure 01/28/19, for > 3 hrs therapy daily with a goal of returning home at or near his prior level of functional independence. Per patient he had chronic right LE lymphedema for which right AKA was done, per patient he lives with his daughter, son, used cane to ambulate previously, did drive, lives in a ranch house, has a ramp to go into the house, denies any frequent falls. He denies severe pain in the stump at present, denies any focal motor weakness, has chronic right thigh sensory loss per patient, denies any visual disturbances, chest pain, fever or speech disturbances. Plan -PT for gait stability -OT for ADLs -Bowel protocol -Analgesic PRN -Right AKA amputation-right LE NWB per orthopedics Dr. Pete recommendation. Further management per Dr. Pete recommendations -S/P right AKA wound vac- wound consult -HTN-Ramipril 2.5 mg PO once daily, Coreg 25 mg PO BID -HLD- on Lipitor 40 mg PO q hs and Niacin -CAD s/p stents/CABG/ AICD- on ASA/Plavix -Chronic systolic CHF- s/p AICD, Lasix, potassium supplementation, Imdur and Ranolazine -TARAN- on CPAP -Depression- on Lexapro and Bupropion -GI/DVT prophylaxis- on pantoprazole/ASA/Plavix/SCDs/IJEOMA hose, DVT ASA/Plavix per orthopedics recommendations -Hospitalist consult -Further medical management per hospitalist recommendations -Fall precautions -Follow up with PCP, orthopedic surgery, oncology and cardiology on discharge.
--- NOTE | 2019-02-10 16:25 | CASEMGMT ---
Social Work Faxed order and supportive documentation for wheelchair to [facility] [place]. [facility] [place] to deliver wheelchair to patient room prior to discharge. Proposed discharge date: 02/14/19 PLAN: Discharge to home with family. Elham DAMON, AMANDA
[2019-02-10] MEDS: Atorvastatin Calcium 40 MG Tablet PO (17:07)
[2019-02-10] MEDS: Furosemide 40 MG Tablet PO (17:07)
[2019-02-10 19:24] VITALS: BP 106/54; PULSE 111; RESP 18; TEMP 36.6; O2SAT 92
[2019-02-10 20:30] VITALS: PULSE 111; RESP 18; O2SAT 92
[2019-02-10] MEDS: Gabapentin 300 MG Capsule PO (20:40)
[2019-02-10] MEDS: oxyCODONE 5 MG Tablet PO (20:42)
[2019-02-10] MEDS: Aspirin 81 MG TAB.CHEW PO (23:44)
[2019-02-10] MEDS: Temazepam 15 MG Capsule PO (23:44)
[2019-02-11 07:13] VITALS: BP 108/65; PULSE 65; RESP 16; TEMP 36.6; O2SAT 97
[2019-02-11] MEDS: Loratadine 10 MG Tablet PO (08:03)
[2019-02-11] MEDS: Pantoprazole Sodium 40 MG Tablet PO (08:03)
[2019-02-11] MEDS: Montelukast 10 MG Tablet PO (08:03)
[2019-02-11] MEDS: Escitalopram Oxalate 20 MG Tablet PO (08:03)
[2019-02-11] MEDS: buPROPion (SR) 150 MG Tablet.SA PO ×2 (08:03→22:58)
[2019-02-11] MEDS: Senna/Docusate Sodium 1 Tablet 2 TABLET PO ×2 (08:03→21:13)
[2019-02-11] MEDS: Ranolazine 500 MG Tablet 1000 MG PO ×2 (08:03→21:13)
[2019-02-11] MEDS: Clopidogrel Bisulfate 75 MG Tablet PO (08:04)
[2019-02-11] MEDS: Furosemide 80 MG Tablet PO (08:04)
[2019-02-11] MEDS: Carvedilol 25 MG Tablet PO ×2 (08:04→21:13)
[2019-02-11] MEDS: Meloxicam 15 MG Tablet PO (08:04)
[2019-02-11] MEDS: Isosorbide Mononitrate 60 MG Tablet PO ×2 (08:04→21:13)
[2019-02-11] MEDS: Ramipril 2.5 MG Capsule PO (08:04)
[2019-02-11] MEDS: oxyCODONE 5 MG Tablet PO ×2 (09:16→21:12)
--- NOTE | 2019-02-11 14:13 | PN_ITS ---
Patient Problems: Active and Suspected Problems (Last Reviewed 10/09/18 @ 16:23 by Divina Ahumada) Debility (Acute) Above knee amputation of right lower extremity (Acute) Subjective: Patient's wound VAC was taking of this a.m. Objective: GENERAL: cooperative HEENT: Atraumatic; moist oral mucosa EYES; Anicteric, Normal Conjunctiva NECK; supple, normal thyroid, no distended JVD. RESPIRATORY: Diminished to auscultation bilaterally, CARDIOVASCULAR: Regular S1 S2, no audible murmurs GI: soft, non-tender, normoactive bowel sounds, : No Renal angle tenderness; EXTREMITIES: Right AKA NEURO: Awake; no lateralizing signs. SKIN: No Rash PSYCH; Normal affect Vitals/I&O's: Vital Signs Temp Pulse Resp BP Pulse Ox 97.8 F 65 16 108/65 97 02/11/19 07:13 02/11/19 07:13 02/11/19 07:13 02/11/19 07:13 02/11/19 07:13 Oxygen Delivery Method Room Air Weight: 123.9 kg Body Mass Index (BMI) 51.5 Intake and Output for Last 24 Hours 02/09/19 02/10/19 02/11/19 23:59 23:59 23:59 Intake Total 440 / 440 Balance 440 / 440 Current Medications Aspirin (Aspirin, Baby) 81 mg PO QHS [facility] Last Admin: 02/10/19 23:44 Dose: 81 mg Atorvastatin Calcium (Lipitor) 40 mg PO DINNER [facility] Last Admin: 02/10/19 17:07 Dose: 40 mg Bisacodyl (Dulcolax) 10 mg RECTAL .PRN X 1 PRN PRN Reason: Constipation Bupropion HCl (Wellbutrin Sr (150mg Tablets)) 150 mg PO BID [facility] Last Admin: 02/11/19 08:03 Dose: 150 mg Carvedilol (Coreg) 25 mg PO BID [facility] Last Admin: 02/11/19 08:04 Dose: 25 mg Clopidogrel Bisulfate (Plavix) 75 mg PO DAILY [facility] Last Admin: 02/11/19 08:04 Dose: 75 mg Escitalopram Oxalate (Lexapro) 20 mg PO DAILY [facility] Last Admin: 02/11/19 08:03 Dose: 20 mg Furosemide (Lasix) 80 mg PO QAM [facility] Last Admin: 02/11/19 08:04 Dose: 80 mg Furosemide (Lasix) 40 mg PO DINNER [facility] Last Admin: 02/10/19 17:07 Dose: 40 mg Gabapentin (Neurontin) 300 mg PO QHS [facility] Last Admin: 02/10/19 20:40 Dose: 300 mg Isosorbide Mononitrate (Imdur) 60 mg PO BID [facility] Last Admin: 02/11/19 08:04 Dose: 60 mg Loratadine (Claritin) 10 mg PO DAILY [facility] Last Admin: 02/11/19 08:03 Dose: 10 mg Magnesium Hydroxide (Milk Of Magnesia) 30 ml PO .PRN X 1 PRN PRN Reason: Constipation Last Admin: 01/31/19 18:28 Dose: 30 ml Meloxicam (Mobic) 15 mg PO DAILY [facility] Last Admin: 02/11/19 08:04 Dose: 15 mg Montelukast Sodium (Singulair) 10 mg PO DAILY [facility] Last Admin: 02/11/19 08:03 Dose: 10 mg Niacin (Niaspan) 1,000 mg PO QHS [facility] Last Admin: 02/10/19 23:43 Dose: 1,000 mg Oxycodone HCl (Oxyir) 5 - 10 mg PO Q4H PRN PRN PRN Reason: SEVERE PAIN (6-10/10) Last Admin: 02/11/19 09:16 Dose: 10 mg Pantoprazole Sodium (Protonix) 40 mg PO DAILY [facility] Last Admin: 02/11/19 08:03 Dose: 40 mg [facility] ([facility]) [facility] Last Admin: 02/11/19 08:03 Dose: 40 meq Ramipril (Altace) 2.5 mg PO DAILY [facility] Last Admin: 02/11/19 08:04 Dose: 2.5 mg Ranolazine (Ranexa) 1,000 mg PO BID [facility] Last Admin: 02/11/19 08:03 Dose: 1,000 mg Senna/Docusate Sodium (Senokot-S, Amna-Colace) 2 tablet PO BID [facility] Last Admin: 02/11/19 08:03 Dose: 2 tablet Temazepam (Restoril) 15 mg PO QHS [facility] Last Admin: 02/10/19 23:44 Dose: 15 mg Medical Necessity - Tobacco Use Smoking Status: Former smoker Tobacco Use: Non-smoker Assessment/Plan All Active Problems (Last Reviewed 10/09/18 @ 16:23 by Divina Ahumada) Debility (Acute) Above knee amputation of right lower extremity (Acute) Cellulitis of right lower extremity (Acute) History of tobacco abuse (Acute) Patient is a 63-year-old gentleman who underwent right knee amputation following chronic lymphedema as a result of previous right leiomyosarcoma surgery 1. Debility following right AKA as a result of chronic lymphedema as a result of previous right leiomyosarcoma surgery 2. CAD with previous CABG 3. Ischemic cardiomyopathy status post AICD patient is on recommended medications including BURT inhibitors 4. Dyslipidemia-patient is on statin therapy, continued at home dose 5. Hypertension-blood pressure controlled, home medications continued with dose adjustment as needed 6. Depression patient is on Procan as well as Lexapro 7. Obstructive sleep apnea on CPAP at night 8. GERD patient is on PPI 9. DVT prophylaxis; patient is on dual antiplatelet therapy Code Visit Inpatient E&M: 63280 Subs Hosp L2
--- NOTE | 2019-02-11 15:32 | NURSING ---
Removed the wound VAC dressing from the right stump incision. there is still some maceration noted. no drainage noted in the canister. will leave P[employer] SPOTTER as long as there is no drainage. hopefully this will also help heal the maceration. discussed this with the nursing staff as well.
[2019-02-11] MEDS: Furosemide 40 MG Tablet PO (16:59)
[2019-02-11] MEDS: Atorvastatin Calcium 40 MG Tablet PO (16:59)
[2019-02-11 19:22] VITALS: BP 96/59; PULSE 66; RESP 18; TEMP 36.6; O2SAT 96
[2019-02-11] MEDS: Gabapentin 300 MG Capsule PO (22:57)
[2019-02-11] MEDS: Temazepam 15 MG Capsule PO (22:57)
[2019-02-11] MEDS: Aspirin 81 MG TAB.CHEW PO (22:58)
[2019-02-12 08:10] VITALS: BP 126/61; PULSE 67; RESP 14; TEMP 36.8; O2SAT 95
[2019-02-12] MEDS: Ranolazine 500 MG Tablet 1000 MG PO (09:24)
[2019-02-12] MEDS: Pantoprazole Sodium 40 MG Tablet PO (09:24)
[2019-02-12] MEDS: Furosemide 80 MG Tablet PO (09:24)
[2019-02-12] MEDS: Senna/Docusate Sodium 1 Tablet 2 TABLET PO (09:24)
[2019-02-12] MEDS: Loratadine 10 MG Tablet PO (09:24)
[2019-02-12] MEDS: buPROPion (SR) 150 MG Tablet.SA PO (09:24)
[2019-02-12] MEDS: Carvedilol 25 MG Tablet PO (09:24)
[2019-02-12] MEDS: Ramipril 2.5 MG Capsule PO (09:24)
[2019-02-12] MEDS: Meloxicam 15 MG Tablet PO (09:24)
[2019-02-12] MEDS: Isosorbide Mononitrate 60 MG Tablet PO (09:24)
[2019-02-12] MEDS: Escitalopram Oxalate 20 MG Tablet PO (09:24)
[2019-02-12] MEDS: Montelukast 10 MG Tablet PO (09:24)
[2019-02-12] MEDS: Clopidogrel Bisulfate 75 MG Tablet PO (09:24)
[2019-02-12 11:11] VITALS: BP 126/61; PULSE 67; RESP 14; TEMP 36.8; O2SAT 95
--- NOTE | 2019-02-12 11:11 | DCINST_ITS ---
- Discharge Diagnoses Current Active Problems: Current Active and Chronic Problems (Last Reviewed 10/09/18 @ 16:23 by Divina Ahumada) Debility (Acute) Above knee amputation of right lower extremity (Acute) You will use the following diet at home:: Cardiac, Other - Low cholesterol Discharge Activity: May Not Drive Weight Bearing Status: No weight bearing Call your doctor if your incision/area has: Continuous Slow Oozing, Sudden Increased Bleeding, Increased Pain/ Swelling, Increased Redness, Foul Smelling Discharge, Swelling at the incision site Call your doctor if you observe: Fever of 101 or Higher, Coldness, Increased Pain, Numbness or Tingling, Change in Color, Inability to urinate, Inability to have a bowel movement, Using more than one pad per hour, Shortness of breath, Dizziness, Fainting spells, Swelling in the ankles, Chest pain, Prolonged hiccoughing, Increased palpitations (irregular heartbeat), Calf discomfort, Uncontrolled pain Cleanse incision/area with: Do not get Incision Wet, Keep Dressing Clean & Dry Allergies/Adverse Reactions: Allergies No Known Allergies Allergy (Verified 01/21/19 13:37) Medications to take at Discharge Montelukast [Singulair] 10 mg PO DAILY 10/05/13 Niacin SA [Niaspan] 1,000 mg PO QHS 10/05/13 Escitalopram Oxalate [Lexapro] 20 mg PO DAILY 11/02/14 Temazepam [Restoril] 15 mg PO QHS 05/24/17 Aspirin [Aspirin, Baby] 81 mg PO QHS 06/09/17 gabapentin 600 mg tablet 300 mg PO QHS tab 01/06/18 loratadine 10 mg tablet 10 mg PO QDAY 01/06/18 bupropion HCl SR 150 mg tablet,12 hr sustained-release 150 mg PO BID 01/08/18 pantoprazole 40 mg tablet,delayed release 40 mg PO DAILY tab 01/08/18 nitroglycerin 0.4 mg sublingual tablet 0.4 mg SUBLINGUAL Q5M PRN #25 tab 01/15/18 potassium chloride ER 20 mEq tablet,extended release 40 meq PO QDAY #180 tab 05/20/18 ramipril 2.5 mg capsule 2.5 mg PO DAILY #90 cap 06/24/18 Furosemide [Lasix] 40 mg PO DINNER 07/11/18 Pen G Toan/Pen G Procaine [Bicillin C-R 900-300 Syringe] 1,200,000 unit IM QMONTH 07/11/18 ranolazine ER 1,000 mg tablet,extended release,12 hr 1,000 mg PO BID #180 tab 09/01/18 atorvastatin 40 mg tablet 40 mg PO DINNER #30 tab 12/30/18 Carvedilol [Coreg] 25 mg PO BID 01/30/19 Clopidogrel Bisulfate [Plavix] 75 mg PO DAILY 01/30/19 Isosorbide Mononitrate [Imdur] 60 mg PO BID 01/30/19 Furosemide [Lasix] 80 mg PO QAM tablet 02/06/19 Primary Care Physician: Speedy Boswell MD [Primary Care Provider] - Please follow up with your Primary Care Physician in: Follow up with PCP in 1-2 weeks Test Results: Test results from this visit will be discussed in further detail at your follow- up appointment, if applicable. When: Follow up with orthopedics surgery as scheduled When: Follow up with Cardiology in 1-2 weeks When: Follow up with Oncology in 1-2 weeks
--- NOTE | 2019-02-12 12:19 | CASEMGMT ---
Team meeting held. Patient present and requesting for discharge date to be set for 02/12/19, team is agreeable to discharge date. Patient plans to discharge to home with family. No further therapy recommendations at this time. Patient family to provide transportation home for patient at time of discharge. Patient reporting to have spoken to [employer] and that patient wheelchair will be delivered to patient home tomorrow. Team reporting that patient will be able to function at a walker level until wheelchair is delivered to patient home. Support given. Proposed discharge date: 02/12/19 PLAN: Discharge to home with family. Elham DAMON, AMANDA
[2019-02-12] MEDS: Atorvastatin Calcium 40 MG Tablet PO (16:56)
[2019-02-12] MEDS: Furosemide 40 MG Tablet PO (16:56)
--- NOTE | 2019-02-12 17:42 | NURSING ---
Went over discharge instructions, medications and appts. pt verbalized understanding, discharged home with all personal belongings.
== END 2019-02-12 17:46 | disposition home or self-care (01) | DRG 560 ==
PROVIDERS: Admitting Provider Psychiatry & Neurology Neurology; Family Provider Family Medicine; PCP Family Medicine; Referring Provider Psychiatry & Neurology Neurology; Visit Provider Internal Medicine
DX: Z47.81 Encounter for orthopedic aftercare following surgical amputation (principal); I50.22 Chronic systolic (congestive) heart failure; Z68.43 Body mass index [BMI] 50.0-59.9, adult; Z89.611 Acquired absence of right leg above knee; I11.0 Hypertensive heart disease with heart failure; G47.33 Obstructive sleep apnea (adult) (pediatric); I25.10 Atherosclerotic heart disease of native coronary artery without angina pectoris; E78.5 Hyperlipidemia, unspecified; E66.01 Morbid (severe) obesity due to excess calories; Z71.3 Dietary counseling and surveillance; Z95.810 Presence of automatic (implantable) cardiac defibrillator; Z92.21 Personal history of antineoplastic chemotherapy; Z92.3 Personal history of irradiation; Z85.830 Personal history of malignant neoplasm of bone; Z95.5 Presence of coronary angioplasty implant and graft; Z95.1 Presence of aortocoronary bypass graft; Z87.891 Personal history of nicotine dependence; K21.9 Gastro-esophageal reflux disease without esophagitis; F32.9 Major depressive disorder, single episode, unspecified
CPT/HCPCS: 80053; 85025; 97110; 97116; 97162; 97166; 97530; 97535; 97542

== ENCOUNTER 2019-02-12 18:16 | Emergency (ER) | payer MEDICARE, OTHER, SELFPAY ==
[2019-01-30 14:37] VITALS: BMI 51.5
[2019-02-12 18:17] VITALS: BP 109/66; PULSE 83; RESP 18; TEMP 36.7; O2SAT 98; BMI 38.2
--- NOTE | 2019-02-12 19:10 | RAD_ITS ---
STUDY: X-RAY - RIGHT FEMUR REASON FOR STUDY: Male, 63 years old. Pain after a fall TECHNIQUE: 4 view(s) of the femur. COMPARISON: None. FINDINGS: Patient is status post amputation of the distal femur. There is subcutaneous edema around the distal aspect of the stump likely from the surgery as there is no evidence of fracture within the distal femur or erosive osseous lesion to suspect osteomyelitis. There is associated soft tissue swelling. Skin dora noted. RAD/Femur Min 2 Views IMPRESSION: Normal appearance of the remaining femur. No fracture or suspicious erosive lesion noted. Subcutaneous emphysema noted around the distal aspect of the remaining femur likely postsurgical Diffuse nonspecific soft tissue swelling Electronically Signed: Erlin Marsh MD at 19:34 EDT , Service support ,
--- NOTE | 2019-02-12 22:05 | ED.VISSUMM ---
- ER Visit Summary Date of Service: 02/12/19 Chief Complaint: Leg pain wound History of Present Illness: The patient is a 63 M with a history of [id number] amputation about 2 weeks ago he was in rehab doing well he was on his way home, he was using his walker up the ramps to his house and fell on his amputated site and the wound opened. No head injury no loss of consciousness no other symptoms. Physical Examination: Was unremarkable exam see template. He has an [id number]-hlr-crya amputation with dora that are intact except for one central area of about 7 cm that is gaping open. Emergency Department Course and Treatment: The dora there were loose were taken out. Wound was cleaned, I put Gelfoam and dressed the wound. I discussed the patient with surgery at [facility], they are okay with the plan of local wound care patient will be placed on antibiotics for home. He wants to go home, we called and the fire department will meet him at his house and assist him in the house he can use his walker while in the house and tomorrow he will get a wheelchair which is being delivered in the morning. Discharge stable condition Impression: Postop wound This note was generated with [employer] dictation software. It may contain incorrect words, spelling, and punctuation that were not noted in review of the chart prior to signing ED Disposition - Plan for ED Patient: Disposition: Home or Assisted Living Prescriptions: Clindamycin [Cleocin] 300 mg PO TID #60 cap Referrals: Speedy Boswell MD [Primary Care Provider] - 3-5 Days Additional Instructions: If you have any fever or chills or if you see any signs of infection in your leg return right away.
--- NOTE | 2019-02-12 22:11 | ED.DCSUM_ITS ---
- ER Visit Summary Date of Service: 02/12/19 Chief Complaint: Leg pain wound History of Present Illness: The patient is a 63 M with a history of [id number] amputation about 2 weeks ago he was in rehab doing well he was on his way home, he was using his walker up the ramps to his house and fell on his amputated site and the wound opened. No head injury no loss of consciousness no other symptoms. Physical Examination: Was unremarkable exam see template. He has an [id number] amputation with dora that are intact except for one central area of about 7 cm that is gaping open. Emergency Department Course and Treatment: The dora there were loose were taken out. Wound was cleaned, I put Gelfoam and dressed the wound. I discussed the patient with surgery at [facility], they are okay with the plan of local wound care patient will be placed on antibiotics for home. He wants to go home, we called and the fire department will meet him at his house and assist him in the house he can use his walker while in the house and tomorrow he will get a wheelchair which is being delivered in the morning. Discharge stable condition Impression: Postop wound This note was generated with [employer] dictation software. It may contain incorrect words, spelling, and punctuation that were not noted in review of the chart prior to signing ED Disposition - Plan for ED Patient: Disposition: Home or Assisted Living Prescriptions: Clindamycin [Cleocin] 300 mg PO TID #60 cap Referrals: Speedy Boswell MD [Primary Care Provider] - 3-5 Days Additional Instructions: If you have any fever or chills or if you see any signs of infection in your leg return right away.
[2019-02-12 23:21] VITALS: PULSE 95; RESP 18; O2SAT 98
== END 2019-02-12 23:23 | disposition home or self-care (01) ==
PROVIDERS: Emergency Provider Emergency Medicine; Family Provider Family Medicine; PCP Family Medicine
DX: T81.89XA Other complications of procedures, not elsewhere classified, initial encounter (principal); S81.809A Unspecified open wound, unspecified lower leg, initial encounter; Z89.619 Acquired absence of unspecified leg above knee; Y83.8 Other surgical procedures as the cause of abnormal reaction of the patient, or of later complication, without mention of misadventure at the time of the procedure; Y92.9 Unspecified place or not applicable
CPT/HCPCS: 73552; 96372; 99284; A4216

== ENCOUNTER 2019-04-21 10:45 | Outpatient (RCR) | payer MEDICARE, OTHER, SELFPAY ==
[2019-04-14 08:17] VITALS: BP 138/75; PULSE 66; RESP 18; TEMP 36.7; BMI 37.0
--- NOTE | 2019-04-14 09:15 | PCM.WC.HP ---
(1) Surgical wound dehiscence Status: Chronic Current Visit: Yes Qualifiers: Encounter type: initial encounter Qualified Code(s): T81.31XA - Disruption of external operation (surgical) wound, not elsewhere classified, initial encounter Code(s): T81.31XA - Disruption of external operation (surgical) wound, not elsewhere classified, initial encounter (2) Obesity (BMI 30-39.9) Status: Chronic Current Visit: No Code(s): E66.9 - Obesity, unspecified (3) Debility Status: Chronic Current Visit: Yes Code(s): R53.81 - Other malaise (4) Above knee amputation of right lower extremity Status: Chronic Current Visit: Yes Code(s): Z89.611 - Acquired absence of right leg above knee (5) Lymphedema of right lower extremity Status: Chronic Current Visit: Yes Code(s): I89.0 - Lymphedema, not elsewhere classified (6) Automatic implantable cardioverter-defibrillator in situ Status: Chronic Current Visit: No Code(s): Z95.810 - Presence of automatic (implantable) cardiac defibrillator (7) Chronic systolic congestive heart failure Status: Chronic Current Visit: No Code(s): I50.22 - Chronic systolic (congestive) heart failure (8) Presence of stent in coronary artery Status: Chronic Current Visit: No Code(s): Z95.5 - Presence of coronary angioplasty implant and graft Comment: PTCA/stent to prox LAD 02/02/05; PTCA/stent instent restenosis of prox LAD 10/15/13 (9) Atherosclerotic heart disease of [place] coronary artery without angina pectoris Status: Chronic Current Visit: No Qualifiers: [place] vs. transplanted heart: [place] heart Code(s): I25.10 - Atherosclerotic heart disease of [place] coronary artery without angina pectoris Comment: CABG x2- PARK to LAD, SARIAH to OM 06/01/05; PTCA/stent to prox LAD 02/02/05; PTCA/stent instent restenosis of prox LAD 10/15/13 (10) Postsurgical aortocoronary bypass status Status: Chronic Current Visit: No Code(s): Z95.1 - Presence of aortocoronary bypass graft Comment: CABG x2- PARK to LAD, SARIAH to OM 06/01/05 (11) History of tobacco abuse Status: Chronic Current Visit: No Code(s): Z87.891 - Personal history of nicotine dependence (12) Ischemic cardiomyopathy Status: Chronic Current Visit: No Code(s): I25.5 - Ischemic cardiomyopathy (13) Hyperlipidemia Status: Chronic Current Visit: No Qualifiers: Code(s): E78.5 - Hyperlipidemia, unspecified (14) Hypertension Status: Chronic Current Visit: No Qualifiers: Code(s): I10 - Essential (primary) hypertension (15) ICD (implantable cardioverter-defibrillator) in place Status: Chronic Current Visit: No Code(s): Z95.810 - Presence of automatic (implantable) cardiac defibrillator Comment: ICD Implant 2009 History of Present Illness Chief Complaint: Surgical wound dehiscence of the right above-knee amputation stump; Chronic right lower extremity lymphedema History of Wound: This is a 63-year-old male who was diagnosed with sarcoma of the right thigh in 1996. At that time, he underwent a wide surgical excision and subsequent courses of radiation therapy. As result, the patient developed severe right lower extremity lymphedema, which persisted for many years. Due to the unremitting pain and lymphedema, he underwent right above-knee amputation on January 26, 2019. The procedure was performed at [facility] by Dr. Rahman, an orthopedic surgeon. The patient did well postoperatively, and entered rehab. He was then discharged to home, but fell while on a ramp into his home, sustaining trauma to the surgical site. The trauma occurred approximately 10 days postoperatively. The patient subsequently required debridement and revision of his right above-knee amputation stump, with surgical closure. This procedure was performed on March 05, 2019. Despite this reoperative procedure, the patient has developed a persisting dehiscent wound in the midportion of his right above-knee amputation incision, which has continued to be problematic. It drains large volumes of yellowish fluid. It has failed to show an improvement. Patient has been referred by his orthopedic surgeon for evaluation and management relative to the persisting chronic wound of his right above-knee amputation stump. The patient is able to ambulate short distances using a wheeled walker, despite the fact that he does not have a prosthesis. Obtained a stump blueprint trimmer, which he has been using regularly. He has been using dry gauze topically, in an effort to absorb the drainage emanating from his surgical wound. Past Medical History Past Medical History: Chronic Problems (Last Reviewed 10/09/18 @ 16:23 by Divina Ahumada) Debility (Chronic) Above knee amputation of right lower extremity (Chronic) Surgical wound dehiscence (Chronic) Obesity (BMI 30-39.9) (Chronic) Lymphedema of right lower extremity (Chronic) Automatic implantable cardioverter-defibrillator in situ (Chronic) Chronic systolic congestive heart failure (Chronic) Presence of stent in coronary artery (Chronic) PTCA/stent to prox LAD 02/02/05; PTCA/stent instent restenosis of prox LAD 10/15/13 Atherosclerotic heart disease of [place] coronary artery without angina pectoris (Chronic) CABG x2- PARK to LAD, SARIAH to OM 06/01/05; PTCA/stent to prox LAD 02/02/05; PTCA/stent instent restenosis of prox LAD 10/15/13 Shortness of breath (Chronic) Postsurgical aortocoronary bypass status (Chronic ~06/01/05) CABG x2- PARK to LAD, SARIAH to OM 06/01/05 History of tobacco abuse (Chronic) Family history of CVA (Chronic) Ischemic cardiomyopathy (Chronic) Hyperlipidemia (Chronic) Hypertension (Chronic) ICD (implantable cardioverter-defibrillator) in place (Chronic ~08/17/10) ICD Implant 2009 Past Medical History: Patient's history is negative for congestive heart failure, cerebrovascular accident, diabetes mellitus, pulmonary disease, renal disease, and thyroid disease. Patient has a history of sarcoma of the right thigh, as documented elsewhere. He has a history of 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 in 2004, following which coronary stents were placed, and subsequently coronary artery bypass surgery. He also suffers from hypertension and hyperlipidemia. Surgical History: coronary bypass surgery - CABG x 2., total hip arthroplasty, tonsillectomy, - - AICD; 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 More recently, in January 2019, patient underwent right above-knee amputation, and subsequent revision. Patient is undergone bilateral shoulder surgery. Patient also has previously undergone coronary stenting. Allergies/Adverse Reactions: Allergies No Known Allergies Allergy (Verified 02/12/19 18:24) Home Medications: Ambulatory Orders Medication Instructions Recorded Niacin SA [Niaspan] 1,000 mg PO QHS 10/05/13 Temazepam [Restoril] 15 mg PO QHS 05/24/17 Aspirin [Aspirin, Baby] 81 mg PO QHS 06/09/17 gabapentin 600 mg tablet 300 mg PO QHS tab 01/06/18 loratadine 10 mg tablet 10 mg PO QDAY 01/06/18 bupropion HCl SR 150 mg tablet,12 150 mg PO BID 01/08/18 hr sustained-release pantoprazole 40 mg tablet,delayed 40 mg PO DAILY tab 01/08/18 release nitroglycerin 0.4 mg sublingual 0.4 mg SUBLINGUAL Q5M PRN #25 tab 01/15/18 tablet potassium chloride ER 20 mEq 40 meq PO QDAY #180 tab 05/20/18 tablet,extended release ramipril 2.5 mg capsule 2.5 mg PO DAILY #90 cap 06/24/18 Furosemide [Lasix] 40 mg PO DINNER 07/11/18 atorvastatin 40 mg tablet 40 mg PO DINNER #30 tab 12/30/18 Furosemide [Lasix] 80 mg PO QAM tablet 02/06/19 isosorbide mononitrate ER 60 mg 60 mg PO BID #60 tab 02/23/19 tablet,extended release 24 hr ranolazine ER 1,000 mg 1,000 mg PO BID #180 tab 03/16/19 tablet,extended release,12 hr carvedilol 25 mg tablet 25 mg PO BID #180 tab 03/30/19 clopidogrel 75 mg tablet 75 mg PO DAILY #90 tab 04/06/19 - Family History Maternal Family History: Family History (Last Reviewed 10/09/18 @ 16:23 by Divina Ahumada) Mother CAD (coronary artery disease) Father CVA (cerebral vascular accident) Myocardial infarction Brother CAD (coronary artery disease) Hx of CABG Brother CAD (coronary artery disease) Hx of CABG Heart Disease, Stroke Paternal Family History: Family History (Last Reviewed 10/09/18 @ 16:23 by Divina Ahumada) Mother CAD (coronary artery disease) Father CVA (cerebral vascular accident) Myocardial infarction Brother CAD (coronary artery disease) Hx of CABG Brother CAD (coronary artery disease) Hx of CABG Cancer - Father with history of liver CA., No pertinent history Social History: Patient is a . 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 He denies use of tobacco products. He consumes alcoholic beverages occasionally. Lives: With Family Smoking Status: Former smoker Tobacco Use: Non-smoker Alcohol: Occasional Drugs: None Review of Systems Constitutional: Denies: Chills, Fever, Weight Change Eyes: Denies: Pain, Vision Change HEENT: Denies: Difficulty Hearing, Difficulty Swallowing, Sinus Congestion Cardiovascular: Denies: Chest Pain, Palpitations Respiratory: Denies: Cough, Shortness of Breath Gastrointestinal: Denies: Diarrhea, Nausea, Vomiting Genitourinary: Denies: Dysuria, Hematuria Endocrine: Denies: Heat/ Cold Intolerance, Polydipsia, Polyuria Hematologic/ Lymphatic: Denies: Easy Bruising, Easy Bleeding - Physical Exam Vital Signs Temp Pulse Resp BP 98.0 F 66 18 138/75 H 04/14/19 08:17 04/14/19 08:17 04/14/19 08:17 04/14/19 08:17 General: Alert, Oriented x3, Cooperative, No apparent distress, Well developed, Well nourished HEENT: Atraumatic, PERRLA, EOMI, Normocephalic Oral: Moist Mucosa, No Gingival or Mucosal Lesions/ Ulcerations Neck: Supple, No JVD, Negative Carotid Bruits, Negative Hepatojugular Reflux, No Nodes, No Nuchal Rigidity, Trachea Midline Lungs: Clear to auscultation, Normal air movement, No rhonchi, No wheeze, No rales Cardiovascular: Regular rate, Regular Rhythm, Normal S1, Normal S2, No murmurs Abdomen: Soft, Non Tender, Non-Distended, Obese Extremities: No clubbing, No cyanosis, No Calf Tenderness, - - The left lower extremity appears normal. There is no significant swelling or edema in the left lower extremity. The left lower extremity is warm and well-perfused. On the right, the patient is noted to have an above-knee amputation. The incision is generally well approximated, but for the very central portion, which is open, revealing the presence of a small dehiscence. The distance is in a cleft. Wound dimensions are documented elsewhere. Swab cultures have been obtained, for aerobic and anaerobic bacteria. The right thigh is massively swollen and edematous. There are ulcerations on the proximal portion of the right medial thigh as well, the dimensions of which will be documented elsewhere. Mild maceration is noted about the wound of the distal right amputation stump, presumably due to the drainage from the site itself. Wound Measurements and Assessment WC - Nurse 1 - General Ulcer Measurement Start: 04/14/19 08:17 Freq: Status: Active Protocol: Activity Type Activity Date Activity User E-Sign Co-Sign Detail Recorded Client Recorded Date Recorded By Document 04/14/19 08:17 ANGELICA [id number] 04/14/19 08:35 ANGLEICA 04/14/19 08:17 Wound Center Nurse 1 [Ulcer Assessment] 4-Right AKA wound -Combined with other wound No -Current Size (cm) - Length 0.2 -Current Size (cm) - Width 0.2 -Current Size (cm) - Depth 0.5 -Total Square Cm 0.04 -Photo Taken Yes -Epithelialization None Present -Tunneling No -Undermining/Tunneling No -Circular Undermining No -Classification - Thickness Full Thickness without Exposed Support Structure -Exudate Amt Large -Exudate Type Yellow/Green -Wound Margin Flat & Intact -Granulation Amt Large (67-100%) -Granulation Quality Red -Slough/Fibrin No -Structure Exposed N/A -Texture (Amna-wound Skin Appearance) Assessed Excoriation Localized Edema -Moisture (Amna-wound Skin Appearance Assessed ) -Color (Amna-wound Skin Appearance) Assessed -Temperature (Amna-wound Skin No Abnormality Appearance) (Pt Warm) -Tenderness on Palpation (Amna-wound No Skin Appearance) -Ulcer Cleansing Rinsed/ Irrigated with Saline -Foul Odor after Cleansing No -Anesthetic Used 4% Lidocaine Solution [Edema Assessment] -Lower Limb Edema Present NA Musculoskeletal: No Muscle Wasting Neurological: Cranial nerves II-XII grossly intact, Neuro grossly intact Psych/Mental Status: Normal Affect, Appropriate, Alert and oriented to time, place, person, mood and affect Debridement Note No debridement was completed today Assessment/Plan Active Problems (Last Reviewed 10/09/18 @ 16:23 by Divina Ahumada) Debility (Chronic) Above knee amputation of right lower extremity (Chronic) Surgical wound dehiscence (Chronic) Lymphedema of right lower extremity (Chronic) Assessment: Chronic ulcers to the right lower extremity healed from previous visit. Chronic lymphedema to the right lower extremity. Cellulitis resolved. History of cancer to the right lower extremity. Coronary artery disease. Hypertension. Plan: Continuecompression as [facility]. He reminded the importance of his compression and he is to wear both his thigh high and knee high stockings. He is to use of hiscompression pumps twice daily. We will use collagen hydrogel to his wounds. His chronic medical problems are stable. As his wounds are now healed, he will be discharged from care of the wound healing center. He will continue follow-up with [facility] regarding his edema to his right lower extremity. Plan: Swab cultures have been obtained, and we will await the results of aerobic and anaerobic bacterial cultures. Patient has been encouraged to demise his nutritional intake. Recent laboratory studies have been obtained, and results noted. Results are as follows: White blood count 7.9, hemoglobin 10.3, hematocrit 32.0, platelets 153,000, sodium 139, potassium 4.1, chloride 103, BUN creatinine 1.05, glucose 93, total protein 6.3, albumin 2.9, AST 16, ALT 17. An x-ray of the right femur reveals no evidence of suspicious erosive lesions or osteomyelitis. We are to implement the use of negative pressure therapy relative to the dehiscent wound of the right above-knee amputation stump. The Snap VAC is to be implemented. We are to implement a compression wrap to the right stump as well, in an effort to minimize the swelling in this area. We are to further assess the ulcerations on the medial thigh, and implement appropriate measures. Finally, patient may be a candidate for hyperbaric oxygen therapy, given his history of radiation to the right thigh, and the presentation of a persisting, chronic wound of the surgical site in the right thigh. Patient is to return in 1 week for reassessment. We are to implement conservative treatment measures, though it is understood from the patient that if surgical intervention were to be warranted once again, Dr. Rahman is willing to be involved. Influenza vaccine was not administered today. The patient is not a smoker. Patient weighs 273 pounds. He stands 6 feet 0 inches tall. His BMI is 37.0, which places him in an obesity class II category. Weight loss has been recommended, in collaboration with the patient's primary care physician has been advised.
--- NOTE | 2019-04-14 09:24 | HP.PCM_ITS ---
(1) Surgical wound dehiscence Status: Chronic Current Visit: Yes Qualifiers: Encounter type: initial encounter Qualified Code(s): T81.31XA - Disruption of external operation (surgical) wound, not elsewhere classified, initial encounter Code(s): T81.31XA - Disruption of external operation (surgical) wound, not elsewhere classified, initial encounter (2) Obesity (BMI 30-39.9) Status: Chronic Current Visit: No Code(s): E66.9 - Obesity, unspecified (3) Debility Status: Chronic Current Visit: Yes Code(s): R53.81 - Other malaise (4) Above knee amputation of right lower extremity Status: Chronic Current Visit: Yes Code(s): Z89.611 - Acquired absence of right leg above knee (5) Lymphedema of right lower extremity Status: Chronic Current Visit: Yes Code(s): I89.0 - Lymphedema, not elsewhere classified (6) Automatic implantable cardioverter-defibrillator in situ Status: Chronic Current Visit: No Code(s): Z95.810 - Presence of automatic (implantable) cardiac defibrillator (7) Chronic systolic congestive heart failure Status: Chronic Current Visit: No Code(s): I50.22 - Chronic systolic (congestive) heart failure (8) Presence of stent in coronary artery Status: Chronic Current Visit: No Code(s): Z95.5 - Presence of coronary angioplasty implant and graft Comment: PTCA/stent to prox LAD 02/02/05; PTCA/stent instent restenosis of prox LAD 10/15/13 (9) Atherosclerotic heart disease of [place] coronary artery without angina pectoris Status: Chronic Current Visit: No Qualifiers: [place] vs. transplanted heart: [place] heart Code(s): I25.10 - Atherosclerotic heart disease of [place] coronary artery without angina pectoris Comment: CABG x2- PARK to LAD, SARIAH to OM 06/01/05; PTCA/stent to prox LAD 02/02/05; PTCA/stent instent restenosis of prox LAD 10/15/13 (10) Postsurgical aortocoronary bypass status Status: Chronic Current Visit: No Code(s): Z95.1 - Presence of aortocoronary bypass graft Comment: CABG x2- PARK to LAD, SARIAH to OM 06/01/05 (11) History of tobacco abuse Status: Chronic Current Visit: No Code(s): Z87.891 - Personal history of nicotine dependence (12) Ischemic cardiomyopathy Status: Chronic Current Visit: No Code(s): I25.5 - Ischemic cardiomyopathy (13) Hyperlipidemia Status: Chronic Current Visit: No Qualifiers: Code(s): E78.5 - Hyperlipidemia, unspecified (14) Hypertension Status: Chronic Current Visit: No Qualifiers: Code(s): I10 - Essential (primary) hypertension (15) ICD (implantable cardioverter-defibrillator) in place Status: Chronic Current Visit: No Code(s): Z95.810 - Presence of automatic (implantable) cardiac defibrillator Comment: ICD Implant 2010 History of Present Illness Chief Complaint: Surgical wound dehiscence of the right above-knee amputation s tump; Chronic right lower extremity lymphedema History of Wound: This is a 63-year-old male who was diagnosed with sarcoma of the right thigh in 1996. At that time, he underwent a wide surgical excision and subsequent courses of radiation therapy. As result, the patient developed severe right lower extremity lymphedema, which persisted for many years. Due to the unremitting pain and lymphedema, he underwent right above-knee amputation on January 26, 2019. The procedure was performed at [facility] by Dr. Rahman, an orthopedic surgeon. The patient did well postoperatively, and entered rehab. He was then discharged to home, but fell while on a ramp into his home, sustaining trauma to the surgical site. The trauma occurred approximately 10 days postoperatively. The patient subsequently required debridement and revision of his right above-knee amputation stump, with surgical closure. This procedure was performed on March 05, 2019. Despite this reo perative procedure, the patient has developed a persisting dehiscent wound in the midportion of his right above-knee amputation incision, which has continued to be problematic. It drains large volumes of yellowish fluid. It has failed to show an improvement. Patient has been referred by his orthopedic surgeon for evaluation and management relative to the persisting chronic wound of his right above-knee amputation stump. The patient is able to ambulate short distances using a wheeled walker, despite the fact that he does not have a prosthesis. Obtained a stump trapeze performer, which he has been using regularly. He has been using dry gauze topically, in an effort to absorb the drainage emanating from his surgical wound. Past Medical History Past Medical History: Chronic Problems (Last Reviewed 10/09/18 @ 16:23 by Divina Ahumada) Debility (Chronic) Above knee amputation of right lower extremity (Chronic) Surgical wound dehiscence (Chronic) Obesity (BMI 30-39.9) (Chronic) Lymphedema of right lower extremity (Chronic) Automatic implantable cardioverter-defibrillator in situ (Chronic) Chronic systolic congestive heart failure (Chronic) Presence of stent in coronary artery (Chronic) PTCA/stent to prox LAD 02/02/05; PTCA/stent instent restenosis of prox LAD 10/15/13 Atherosclerotic heart disease of [place] coronary artery without angina pectoris (Chronic) CABG x2- PARK to LAD, SARIAH to OM 06/01/05; PTCA/stent to prox LAD 02/02/05; PTCA/stent instent restenosis of prox LAD 10/15/13 Shortness of breath (Chronic) Postsurgical aortocoronary bypass status (Chronic ~06/01/05) CABG x2- PARK to LAD, SARIAH to OM 06/01/05 History of tobacco abuse (Chronic) Family history of CVA (Chronic) Ischemic cardiomyopathy (Chronic) Hyperlipidemia (Chronic) Hypertension (Chronic) ICD (implantable cardioverter-defibrillator) in place (Chronic ~08/17/10) ICD Implant 2009 Past Medical History: Patient's history is negative for congestive heart failure, cerebrovascular accident, diabetes mellitus, pulmonary disease, renal disease, and thyroid disease. Patient has a history of sarcoma of the right thigh, as documented elsewhere. He has a history of 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 in 2004, following which coronary stents were placed, and subsequently coronary artery bypass surgery. He also suffers from hypertension and hyperlipidemia. Surgical History: coronary bypass surgery - CABG x 2., total hip arthroplasty, tonsillectomy, - - AICD; 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 More recently, in January 2019, patient underwent right above-knee amputation, and subsequent revision. Patient is undergone bilateral shoulder surgery. Patient also has previously undergone coronary stenting. Allergies/Adverse Reactions: Allergies No Known Allergies Allergy (Verified 02/12/19 18:24) Home Medications: Ambulatory Orders Medication Instructions Recorded Niacin SA [Niaspan] 1,000 mg PO QHS 10/05/13 Temazepam [Restoril] 15 mg PO QHS 06/23/17 Aspirin [Aspirin, Baby] 81 mg PO QHS 06/09/17 gabapentin 600 mg tablet 300 mg PO QHS tab 01/06/18 loratadine 10 mg tablet 10 mg PO QDAY 01/06/18 bupropion HCl SR 150 mg tablet,12 150 mg PO BID 01/08/18 hr sustained-release pantoprazole 40 mg tablet,delayed 40 mg PO DAILY tab 01/08/18 release nitroglycerin 0.4 mg sublingual 0.4 mg SUBLINGUAL Q5M PRN #25 tab 01/15/18 tablet potassium chloride ER 20 mEq 40 meq PO QDAY #180 tab 05/20/18 tablet,extended release ramipril 2.5 mg capsule 2.5 mg PO DAILY #90 cap 06/24/18 Furosemide [Lasix] 40 mg PO DINNER 07/11/18 atorvastatin 40 mg tablet 40 mg PO DINNER #30 tab 12/30/18 Furosemide [Lasix] 80 mg PO QAM tablet 02/06/19 isosorbide mononitrate ER 60 mg 60 mg PO BID #60 tab 02/23/19 tablet,extended release 24 hr ranolazine ER 1,000 mg 1,000 mg PO BID #180 tab 03/16/19 tablet,extended release,12 hr carvedilol 25 mg tablet 25 mg PO BID #180 tab 03/30/19 clopidogrel 75 mg tablet 75 mg PO DAILY #90 tab 04/06/19 - Family History Maternal Family History: Family History (Last Reviewed 10/09/18 @ 16:23 by Divina Ahumada) Mother CAD (coronary artery disease) Father CVA (cerebral vascular accident) Myocardial infarction Brother CAD (coronary artery disease) Hx of CABG Brother CAD (coronary artery disease) Hx of CABG Heart Disease, Stroke Paternal Family History: Family History (Last Reviewed 10/09/18 @ 16:23 by Divina Ahumada) Mother CAD (coronary artery disease) Father CVA (cerebral vascular accident) Myocardial infarction Brother CAD (coronary artery disease) Hx of CABG Brother CAD (coronary artery disease) Hx of CABG Cancer - Father with history of liver CA., No pertinent history Social History: Patient is a . 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 He denies use of tobacco products. He consumes alcoholic beverages occasionally. Lives: With Family Smoking Status: Former smoker Tobacco Use: Non-smoker Alcohol: Occasional Drugs: None Review of Systems Constitutional: Denies: Chills, Fever, Weight Change Eyes: Denies: Pain, Vision Change HEENT: Denies: Difficulty Hearing, Difficulty Swallowing, Sinus Congestion Cardiovascular: Denies: Chest Pain, Palpitations Respiratory: Denies: Cough, Shortness of Breath Gastrointestinal: Denies: Diarrhea, Nausea, Vomiting Genitourinary: Denies: Dysuria, Hematuria Endocrine: Denies: Heat/ Cold Intolerance, Polydipsia, Polyuria Hematologic/ Lymphatic: Denies: Easy Bruising, Easy Bleeding - Physical Exam Vital Signs Temp Pulse Resp BP 98.0 F 66 18 138/75 H 04/14/19 08:17 04/14/19 08:17 04/14/19 08:17 04/14/19 08:17 General: Alert, Oriented x3, Cooperative, No apparent distress, Well developed, Well nourished HEENT: Atraumatic, PERRLA, EOMI, Normocephalic Oral: Moist Mucosa, No Gingival or Mucosal Lesions/ Ulcerations Neck: Supple, No JVD, Negative Carotid Bruits, Negative Hepatojugular Reflux, No Nodes, No Nuchal Rigidity, Trachea Midline Lungs: Clear to auscultation, Normal air movement, No rhonchi, No wheeze, No rales Cardiovascular: Regular rate, Regular Rhythm, Normal S1, Normal S2, No murmurs Abdomen: Soft, Non Tender, Non-Distended, Obese Extremities: No clubbing, No cyanosis, No Calf Tenderness, - - The left lower extremity appears normal. There is no significant swelling or edema in the left lower extremity. The left lower extremity is warm and well-perfused. On the right, the patient is noted to have an above-knee amputation. The incision is generally well approximated, but for the very central portion, which is open, revealing the presence of a small dehiscence. The distance is in a cleft. Wound dimensions are documented elsewhere. Swab cultures have been obtained, for aerobic and anaerobic bacteria. The right thigh is massively swollen and edematous. There are ulcerations on the proximal portion of the right medial thigh as well, the dimensions of which will be documented elsewhere. Mild maceration is noted about the wound of the distal right amputation stump, presumably due to the drainage from the site itself. Wound Measurements and Assessment WC - Nurse 1 - General Ulcer Measurement Start: 04/14/19 08:17 Freq: Status: Active Protocol: Activity Type Activity Date Activity User E-Sign Co-Sign Detail Recorded Client Recorded Date Recorded By Document 04/14/19 08:17 ANGELICA [id number] 04/14/19 08:35 ANGELICA 04/14/19 08:17 Wound Center Nurse 1 [Ulcer Assessment] 4-Right AKA wound -Combined with other wound No -Current Size (cm) - Length 0.2 -Current Size (cm) - Width 0.2 -Current Size (cm) - Depth 0.5 -Total Square Cm 0.04 -Photo Taken Yes -Epithelialization None Present -Tunneling No -Undermining/Tunneling No -Circular Undermining No -Classification - Thickness Full Thickness without Exposed Support Structure -Exudate Amt Large -Exudate Type Yellow/Green -Wound Margin Flat & Intact -Granulation Amt Large (67-100%) -Granulation Quality Red -Slough/Fibrin No -Structure Exposed N/A -Texture (Amna-wound Skin Appearance) Assessed Excoriation Localized Edema -Moisture (Amna-wound Skin Appearance Assessed ) -Color (Amna-wound Skin Appearance) Assessed -Temperature (Amna-wound Skin No Abnormality Appearance) (Pt Warm) -Tenderness on Palpation (Amna-wound No Skin Appearance) -Ulcer Cleansing Rinsed/ Irrigated with Saline -Foul Odor after Cleansing No -Anesthetic Used 4% Lidocaine Solution [Edema Assessment] -Lower Limb Edema Present NA Musculoskeletal: No Muscle Wasting Neurological: Cranial nerves II-XII grossly intact, Neuro grossly intact Psych/Mental Status: Normal Affect, Appropriate, Alert and oriented to time, place, person, mood and affect Debridement Note No debridement was completed today Assessment/Plan Active Problems (Last Reviewed 10/09/18 @ 16:23 by Divina Ahumada) Debility (Chronic) Above knee amputation of right lower extremity (Chronic) Surgical wound dehiscence (Chronic) Lymphedema of right lower extremity (Chronic) Assessment: Chronic ulcers to the right lower extremity healed from previous visit. Chronic lymphedema to the right lower extremity. Cellulitis resolved. History of cancer to the right lower extremity. Coronary artery disease. Hypertension. Plan: Continuecompression as [facility] by [facility]. He reminded the importance of his compression and he is to wear both his thigh high and knee high stockings. He is to use of hiscompression pumps twice daily. We will use collagen hydrogel to his wounds. His chronic medical problems are stable. As his wounds are now healed, he will be discharged from care of the wound healing center. He will continue follow-up with [facility] regarding his edema to his right lower extremity. Plan: Swab cultures have been obtained, and we will await the results of aerobic and anaerobic bacterial cultures. Patient has been encouraged to demise his nutritional intake. Recent laboratory studies have been obtained, and results noted. Results are as follows: White blood count 7.9, hemoglobin 10.3, hematocrit 32.0, platelets 153,000, sodium 139, potassium 4.1, chloride 103, BUN creatinine 1.05, glucose 93, total protein 6.3, albumin 2.9, AST 16, ALT 17. An x-ray of the right femur reveals no evidence of suspicious erosive lesions or osteomyelitis. We are to implement the use of negative pressure therapy relative to the dehiscent wound of the right above-knee amputation stump. The Snap VAC is to be implemented. We are to implement a compression wrap to the right stump as well, in an effort to minimize the swelling in this area. We are to further assess the ulcerations on the medial thigh, and implement appropriate measures. Finally, patient may be a candidate for hyperbaric oxygen therapy, given his history of radiation to the right thigh, and the presentation of a persisting, chronic wound of the surgical site in the right thigh. Patient is to return in 1 week for reassessment. We are to implement conservative treatment measures, though it is understood from the patient that if surgical intervention were to be warranted once again, Dr. Rahman is willing to be involved. Influenza vaccine was not administered today. The patient is not a smoker. Patient weighs 273 pounds. He stands 6 feet 0 inches tall. His BMI is 37.0, which places him in an obesity class II category. Weight loss has been recommended, in collaboration with the patient's primary care physician has been advised.
--- NOTE | 2019-04-14 10:03 | HP.PCM_ITS ---
(1) Surgical wound dehiscence Status: Chronic Current Visit: Yes Qualifiers: Encounter type: initial encounter Qualified Code(s): T81.31XA - Disruption of external operation (surgical) wound, not elsewhere classified, initial encounter Code(s): T81.31XA - Disruption of external operation (surgical) wound, not elsewhere classified, initial encounter (2) Obesity (BMI 30-39.9) Status: Chronic Current Visit: No Code(s): E66.9 - Obesity, unspecified (3) Debility Status: Chronic Current Visit: Yes Code(s): R53.81 - Other malaise (4) Above knee amputation of right lower extremity Status: Chronic Current Visit: Yes Code(s): Z89.611 - Acquired absence of right leg above knee (5) Lymphedema of right lower extremity Status: Chronic Current Visit: Yes Code(s): I89.0 - Lymphedema, not elsewhere classified (6) Automatic implantable cardioverter-defibrillator in situ Status: Chronic Current Visit: No Code(s): Z95.810 - Presence of automatic (implantable) cardiac defibrillator (7) Chronic systolic congestive heart failure Status: Chronic Current Visit: No Code(s): I50.22 - Chronic systolic (congestive) heart failure (8) Presence of stent in coronary artery Status: Chronic Current Visit: No Code(s): Z95.5 - Presence of coronary angioplasty implant and graft Comment: PTCA/stent to prox LAD 02/02/05; PTCA/stent instent restenosis of prox LAD 10/15/13 (9) Atherosclerotic heart disease of [place] coronary artery without angina pectoris Status: Chronic Current Visit: No Qualifiers: [place] vs. transplanted heart: [place] heart Code(s): I25.10 - Atherosclerotic heart disease of [place] coronary artery without angina pectoris Comment: CABG x2- PARK to LAD, SARIAH to OM 06/01/05; PTCA/stent to prox LAD 02/02/05; PTCA/stent instent restenosis of prox LAD 10/15/13 (10) Postsurgical aortocoronary bypass status Status: Chronic Current Visit: No Code(s): Z95.1 - Presence of aortocoronary bypass graft Comment: CABG x2- PARK to LAD, SARIAH to OM 06/01/05 (11) History of tobacco abuse Status: Chronic Current Visit: No Code(s): Z87.891 - Personal history of nicotine dependence (12) Ischemic cardiomyopathy Status: Chronic Current Visit: No Code(s): I25.5 - Ischemic cardiomyopathy (13) Hyperlipidemia Status: Chronic Current Visit: No Qualifiers: Code(s): E78.5 - Hyperlipidemia, unspecified (14) Hypertension Status: Chronic Current Visit: No Qualifiers: Code(s): I10 - Essential (primary) hypertension (15) ICD (implantable cardioverter-defibrillator) in place Status: Chronic Current Visit: No Code(s): Z95.810 - Presence of automatic (implantable) cardiac defibrillator Comment: ICD Implant 2010 History of Present Illness Chief Complaint: Surgical wound dehiscence of the right above-knee amputation s tump; Chronic right lower extremity lymphedema History of Wound: This is a 63-year-old male who was diagnosed with sarcoma of the right thigh in 1996. At that time, he underwent a wide surgical excision and subsequent courses of radiation therapy. As result, the patient developed severe right lower extremity lymphedema, which persisted for many years. Due to the unremitting pain and lymphedema, he underwent right above-knee amputation on January 26, 2019. The procedure was performed at [facility] by Dr. Rahman, an orthopedic surgeon. The patient did well postoperatively, and entered rehab. He was then discharged to home, but fell while on a ramp into his home, sustaining trauma to the surgical site. The trauma occurred approximately 10 days postoperatively. The patient subsequently required debridement and revision of his right above-knee amputation stump, with surgical closure. This procedure was performed on March 05, 2019. Despite this reo perative procedure, the patient has developed a persisting dehiscent wound in the midportion of his right above-knee amputation incision, which has continued to be problematic. It drains large volumes of yellowish fluid. It has failed to show an improvement. Patient has been referred by his orthopedic surgeon for evaluation and management relative to the persisting chronic wound of his right above-knee amputation stump. The patient is able to ambulate short distances using a wheeled walker, despite the fact that he does not have a prosthesis. Obtained a stump mail caller, which he has been using regularly. He has been using dry gauze topically, in an effort to absorb the drainage emanating from his surgical wound. Past Medical History Past Medical History: Chronic Problems (Last Reviewed 10/09/18 @ 16:23 by Divina Ahumada) Debility (Chronic) Above knee amputation of right lower extremity (Chronic) Surgical wound dehiscence (Chronic) Obesity (BMI 30-39.9) (Chronic) Lymphedema of right lower extremity (Chronic) Automatic implantable cardioverter-defibrillator in situ (Chronic) Chronic systolic congestive heart failure (Chronic) Presence of stent in coronary artery (Chronic) PTCA/stent to prox LAD 02/02/05; PTCA/stent instent restenosis of prox LAD 10/15/13 Atherosclerotic heart disease of [place] coronary artery without angina pectoris (Chronic) CABG x2- PARK to LAD, SARIAH to OM 06/01/05; PTCA/stent to prox LAD 02/02/05; PTCA/stent instent restenosis of prox LAD 10/15/13 Shortness of breath (Chronic) Postsurgical aortocoronary bypass status (Chronic ~06/01/05) CABG x2- PARK to LAD, SARIAH to OM 06/01/05 History of tobacco abuse (Chronic) Family history of CVA (Chronic) Ischemic cardiomyopathy (Chronic) Hyperlipidemia (Chronic) Hypertension (Chronic) ICD (implantable cardioverter-defibrillator) in place (Chronic ~08/17/10) ICD Implant 2009 Surgical History: coronary bypass surgery - CABG x 2., total hip arthroplasty, tonsillectomy, - - AICD; 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 More recently, in January 2019, patient underwent right above-knee amputation, and subsequent revision. Patient is undergone bilateral shoulder surgery. Patient also has previously undergone coronary stenting. Allergies/Adverse Reactions: Allergies No Known Allergies Allergy (Verified 02/12/19 18:24) Home Medications: Ambulatory Orders Medication Instructions Recorded Niacin SA [Niaspan] 1,000 mg PO QHS 10/05/13 Temazepam [Restoril] 15 mg PO QHS 05/24/17 Aspirin [Aspirin, Baby] 81 mg PO QHS 06/09/17 gabapentin 600 mg tablet 300 mg PO QHS tab 01/06/18 loratadine 10 mg tablet 10 mg PO QDAY 01/06/18 bupropion HCl SR 150 mg tablet,12 150 mg PO BID 01/08/18 hr sustained-release pantoprazole 40 mg tablet,delayed 40 mg PO DAILY tab 01/08/18 release nitroglycerin 0.4 mg sublingual 0.4 mg SUBLINGUAL Q5M PRN #25 tab 01/15/18 tablet potassium chloride ER 20 mEq 40 meq PO QDAY #180 tab 05/20/18 tablet,extended release ramipril 2.5 mg capsule 2.5 mg PO DAILY #90 cap 06/24/18 Furosemide [Lasix] 40 mg PO DINNER 07/11/18 atorvastatin 40 mg tablet 40 mg PO DINNER #30 tab 12/30/18 Furosemide [Lasix] 80 mg PO QAM tablet 02/06/19 isosorbide mononitrate ER 60 mg 60 mg PO BID #60 tab 02/23/19 tablet,extended release 24 hr ranolazine ER 1,000 mg 1,000 mg PO BID #180 tab 03/16/19 tablet,extended release,12 hr carvedilol 25 mg tablet 25 mg PO BID #180 tab 03/30/19 clopidogrel 75 mg tablet 75 mg PO DAILY #90 tab 04/06/19 - Family History Maternal Family History: Family History (Last Reviewed 10/09/18 @ 16:23 by Divina Ahumada) Mother CAD (coronary artery disease) Father CVA (cerebral vascular accident) Myocardial infarction Brother CAD (coronary artery disease) Hx of CABG Brother CAD (coronary artery disease) Hx of CABG Heart Disease, Stroke Paternal Family History: Family History (Last Reviewed 10/09/18 @ 16:23 by Divina Ahumada) Mother CAD (coronary artery disease) Father CVA (cerebral vascular accident) Myocardial infarction Brother CAD (coronary artery disease) Hx of CABG Brother CAD (coronary artery disease) Hx of CABG Cancer - Father with history of liver CA., No pertinent history Lives: With Family Smoking Status: Former smoker Tobacco Use: Non-smoker Alcohol: Occasional Drugs: None - Physical Exam Vital Signs Temp Pulse Resp BP 98.0 F 66 18 138/75 H 04/14/19 08:17 04/14/19 08:17 04/14/19 08:17 04/14/19 08:17 Wound Measurements and Assessment WC - Nurse 1 - General Ulcer Measurement Start: 04/14/19 08:17 Freq: Status: Active Protocol: Activity Type Activity Date Activity User E-Sign Co-Sign Detail Recorded Client Recorded Date Recorded By Document 04/14/19 08:17 [id number] 04/14/19 08:35 04/14/19 08:17 Wound Center Nurse 1 [Ulcer Assessment] #5 R Med Upper Thigh -Current Size (cm) - Length 5.5 -Current Size (cm) - Width 2.1 -Current Size (cm) - Depth 0.1 -Total Square Cm 11.55 -Photo Taken Yes -Classification - Thickness Full Thickness without Exposed Support Structure -Exudate Amt Small -Wound Margin Indistinct, Non -Visible -Granulation Amt Medium (34-66%) -Granulation Quality [place] -Necrosis Amt Medium (34-66%) -Necrotic Tissue Type Adherent Slough -Structure Exposed N/A -Texture ([place]-wound Skin Appearance) Localized Edema Scarring -Moisture ([place]na-wound Skin Appearance Dry/Scaly ) -Color (Amna-wound Skin Appearance) Erythema Rubor -Temperature (Amna-wound Skin No Abnormality Appearance) (Pt Warm) -Tenderness on Palpation (Amna-wound No Skin Appearance) -Ulcer Cleansing Wound Cleanser -Foul Odor after Cleansing No 4-Right AKA wound -Combined with other wound No -Current Size (cm) - Length 0.2 -Current Size (cm) - Width 0.2 -Current Size (cm) - Depth 0.5 -Total Square Cm 0.04 -Photo Taken Yes -Epithelialization None Present -Tunneling No -Undermining/Tunneling No -Circular Undermining No -Classification - Thickness Full Thickness without Exposed Support Structure -Exudate Amt Large -Exudate Type Yellow/Green -Wound Margin Flat & Intact -Granulation Amt Large (67-100%) -Granulation Quality Red -Slough/Fibrin No -Structure Exposed N/A -Texture (Am[place]-wound Skin Appearance) Assessed Excoriation Localized Edema -Moisture (Amna-wound Skin Appearance Assessed ) -Color (Amna-wound Skin Appearance) Assessed -Temperature ([place]-wound Skin No Abnormality Appearance) (Pt Warm) -Tenderness on Palpation (Am[place]-wound No Skin Appearance) -Ulcer Cleansing Rinsed/ Irrigated with Saline -Foul Odor after Cleansing No -Anesthetic Used 4% Lidocaine Solution [Edema Assessment] -Lower Limb Edema Present NA WC - Nurse 2 - General Ulcer CM Notes Start: 04/14/19 08:17 Freq: Status: Active Protocol: Activity Type Activity Date Activity User E-Sign Co-Sign Detail Recorded Client Recorded Date Recorded By Document 04/14/19 09:11 DV [id number] 04/14/19 09:15 DV 04/14/19 09:11 Wound Center Nurse 2 [Procedure/Treatment] 4-Right AKA wound -Time 09:13 -Correct Patient Yes -Correct Side, Site, Position Yes -Correct Procedure No -Procedure Performed No -Wound/Ulcer Outcome Not Healed -Foul Odor after Cleansing No -Bioengineered Tissue No [See Physician Procedure note for Specifics] Pain Scale: 0-10 Numeric [Pain] -Is Patient Pain Free? Yes Debridement Note Post-Debridement Measurements/Treatment WC - Nurse 2 - General Ulcer CM Notes Start: 04/14/19 08:17 Freq: Status: Active Protocol: Activity Type Activity Date Activity User E-Sign Co-Sign Detail Recorded Client Recorded Date Recorded By Document 04/14/19 09:11 DV [id number] 04/14/19 09:15 DV 04/14/19 09:11 Wound Center Nurse 2 4-Right AKA wound -Time 09:13 -Correct Patient Yes -Correct Side, Site, Position Yes -Correct Procedure No -Procedure Performed No -Wound/Ulcer Outcome Not Healed -Foul Odor after Cleansing No -Bioengineered Tissue No Pain Scale: 0-10 Numeric Is Patient Pain Free? Yes Assessment/Plan Active Problems (Last Reviewed 10/09/18 @ 16:23 by Divina Ahumada) Debility (Chronic) Above knee amputation of right lower extremity (Chronic) Surgical wound dehiscence (Chronic) Lymphedema of right lower extremity (Chronic) Assessment: Chronic ulcers to the right lower extremity healed from previous visit. Chronic lymphedema to the right lower extremity. Cellulitis resolved. History of cancer to the right lower extremity. Coronary artery disease. Hypertension. Plan: Continuecompression as prescribed by Marcia at [facility]. He reminded the importance of his compression and he is to wear both his thigh high and knee high stockings. He is to use of hiscompression pumps twice daily. We will use collagen hydrogel to his wounds. His chronic medical problems are stable. As his wounds are now healed, he will be discharged from care of the wound healing center. He will continue follow-up with Marcia at [facility] regarding his edema to his right lower extremity. Plan: Swab cultures have been obtained, and we will await the results of aerobic and anaerobic bacterial cultures. Patient has been encouraged to demise his nutritional intake. Recent laboratory studies have been obtained, and results noted. Results are as follows: White blood count 7.9, hemoglobin 10.3, sindy tocrit 32.0, platelets 153,000, sodium 139, potassium 4.1, chloride 103, BUN creatinine 1.05, glucose 93, total protein 6.3, albumin 2.9, AST 16, ALT 17. An x-ray of the right femur reveals no evidence of suspicious erosive lesions or osteomyelitis. We are to implement the use of negative pressure therapy relative to the dehiscent wound of the right above-knee amputation stump. The Snap VAC is to be implemented. We are to implement a compression wrap to the right stump as well, in an effort to minimize the swelling in this area. We are to further assess the ulcerations on the medial thigh, and implement appropriate measures. Finally, patient may be a candidate for hyperbaric oxygen therapy, given his history of radiation to the right thigh, and the presentation of a persisting, chronic wound of the surgical site in the right thigh. Patient is to return in 1 week for reassessment. We are to implement conservative treatment measures, though it is understood from the patient that if surgical intervention were to be warranted once again, Dr. Rahman is willing to be involved. An attempt at placing the Snap VAC resulted in some impediments. Due to the deep cleft on the distal right above-knee imitation stump, there has been some difficulty in maintaining a seal. Therefore, we are to proceed with an alternative modality, using an alginate within the wound to absorb drainage. In addition, the ulcerations on the medial portion of the proximal right thigh are to be treated with collagenase Santyl, which will be applied topically on a daily basis. As previously mentioned, the patient is to return in one week for reevaluation. Influenza vaccine was not administered today. The patient is not a smoker. Patient weighs 273 pounds. He stands 6 feet 0 inches tall. His BMI is 37.0, which places him in an obesity class II category. Weight loss has been recommended, in collaboration with the patient's primary care physician has been advised.
[2019-04-17 14:56] VITALS: BP 104/63; PULSE 71; RESP 18; TEMP 36.2; BMI 37.0
[2019-04-21 10:53] VITALS: BP 151/76; PULSE 75; RESP 20; TEMP 35.9; BMI 37.0
--- NOTE | 2019-04-21 12:43 | PCM.WC.HP ---
(1) Surgical wound dehiscence Status: Chronic Current Visit: Yes Qualifiers: Encounter type: subsequent encounter Qualified Code(s): T81.31XD - Disruption of external operation (surgical) wound, not elsewhere classified, subsequent encounter Code(s): T81.31XA - Disruption of external operation (surgical) wound, not elsewhere classified, initial encounter (2) Obesity (BMI 30-39.9) Status: Chronic Current Visit: No Code(s): E66.9 - Obesity, unspecified (3) Debility Status: Chronic Current Visit: Yes Code(s): R53.81 - Other malaise (4) Above knee amputation of right lower extremity Status: Chronic Current Visit: Yes Code(s): Z89.611 - Acquired absence of right leg above knee (5) Lymphedema of right lower extremity Status: Chronic Current Visit: Yes Code(s): I89.0 - Lymphedema, not elsewhere classified (6) Automatic implantable cardioverter-defibrillator in situ Status: Chronic Current Visit: No Code(s): Z95.810 - Presence of automatic (implantable) cardiac defibrillator (7) Chronic systolic congestive heart failure Status: Chronic Current Visit: No Code(s): I50.22 - Chronic systolic (congestive) heart failure (8) Presence of stent in coronary artery Status: Chronic Current Visit: No Code(s): Z95.5 - Presence of coronary angioplasty implant and graft Comment: PTCA/stent to prox LAD 02/02/05; PTCA/stent instent restenosis of prox LAD 10/15/13 (9) Atherosclerotic heart disease of [place] coronary artery without angina pectoris Status: Chronic Current Visit: No Qualifiers: [place] vs. transplanted heart: [place] heart Qualified Code(s): I25.10 - Atherosclerotic heart disease of [place] coronary artery without angina pectoris Code(s): I25.10 - Atherosclerotic heart disease of [place] coronary artery without angina pectoris Comment: CABG x2- PARK to LAD, SARIAH to OM 06/01/05; PTCA/stent to prox LAD 02/02/05; PTCA/stent instent restenosis of prox LAD 10/15/13 (10) Postsurgical aortocoronary bypass status Status: Chronic Current Visit: No Code(s): Z95.1 - Presence of aortocoronary bypass graft Comment: CABG x2- PARK to LAD, SARIAH to OM 06/01/05 (11) History of tobacco abuse Status: Chronic Current Visit: No Code(s): Z87.891 - Personal history of nicotine dependence (12) Ischemic cardiomyopathy Status: Chronic Current Visit: No Code(s): I25.5 - Ischemic cardiomyopathy (13) Hyperlipidemia Status: Chronic Current Visit: No Qualifiers: Hyperlipidemia type: mixed hyperlipidemia Qualified Code(s): E78.2 - Mixed hyperlipidemia Code(s): E78.5 - Hyperlipidemia, unspecified (14) Hypertension Status: Chronic Current Visit: No Qualifiers: Hypertension type: essential hypertension Qualified Code(s): I10 - Essential (primary) hypertension Code(s): I10 - Essential (primary) hypertension (15) ICD (implantable cardioverter-defibrillator) in place Status: Chronic Current Visit: No Code(s): Z95.810 - Presence of automatic (implantable) cardiac defibrillator Comment: ICD Implant 2009 History of Present Illness Chief Complaint: Surgical wound dehiscence of the right above-knee amputation stump; Chronic right lower extremity lymphedema History of Wound: This is a 63-year-old male who was diagnosed with sarcoma of the right thigh in 1996. At that time, he underwent a wide surgical excision and subsequent courses of radiation therapy. As result, the patient developed severe right lower extremity lymphedema, which persisted for many years. Due to the unremitting pain and lymphedema, he underwent right above-knee amputation on January 26, 2019. The procedure was performed at [facility] by Dr. Rahman, an orthopedic surgeon. The patient did well postoperatively, and entered rehab. He was then discharged to home, but fell while on a ramp into his home, sustaining trauma to the surgical site. The trauma occurred approximately 10 days postoperatively. The patient subsequently required debridement and revision of his right above-knee amputation stump, with surgical closure. This procedure was performed on March 05, 2019. Despite this reoperative procedure, the patient has developed a persisting dehiscent wound in the midportion of his right above-knee amputation incision, which has continued to be problematic. It drains large volumes of yellowish fluid. It has failed to show an improvement. Patient has been referred by his orthopedic surgeon for evaluation and management relative to the persisting chronic wound of his right above-knee amputation stump. The patient is able to ambulate short distances using a wheeled walker, despite the fact that he does not have a prosthesis. Obtained a stump magazine supervisor, which he has been using regularly. He has been using dry gauze topically, in an effort to absorb the drainage emanating from his surgical wound. Past Medical History Past Medical History: Chronic Problems (Last Reviewed 10/09/18 @ 16:23 by Divina Ahumada) Debility (Chronic) Above knee amputation of right lower extremity (Chronic) Surgical wound dehiscence (Chronic) Obesity (BMI 30-39.9) (Chronic) Lymphedema of right lower extremity (Chronic) Automatic implantable cardioverter-defibrillator in situ (Chronic) Chronic systolic congestive heart failure (Chronic) Presence of stent in coronary artery (Chronic) PTCA/stent to prox LAD 02/02/05; PTCA/stent instent restenosis of prox LAD 10/15/13 Atherosclerotic heart disease of [place] coronary artery without angina pectoris (Chronic) CABG x2- PARK to LAD, SARIAH to OM 06/01/05; PTCA/stent to prox LAD 02/02/05; PTCA/stent instent restenosis of prox LAD 10/15/13 Shortness of breath (Chronic) Postsurgical aortocoronary bypass status (Chronic ~06/01/05) CABG x2- PARK to LAD, SARIAH to OM 06/01/05 History of tobacco abuse (Chronic) Family history of CVA (Chronic) Ischemic cardiomyopathy (Chronic) Hyperlipidemia (Chronic) Hypertension (Chronic) ICD (implantable cardioverter-defibrillator) in place (Chronic ~08/17/10) ICD Implant 2009 Surgical History: coronary bypass surgery - CABG x 2., total hip arthroplasty, tonsillectomy, - - AICD; 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 More recently, in January 2019, patient underwent right above-knee amputation, and subsequent revision. Patient is undergone bilateral shoulder surgery. Patient also has previously undergone coronary stenting. Allergies/Adverse Reactions: Allergies No Known Allergies Allergy (Verified 04/16/19 14:13) Home Medications: Ambulatory Orders Medication Instructions Recorded Niacin SA [Niaspan] 1,000 mg PO QHS 10/05/13 Temazepam [Restoril] 15 mg PO QHS 05/24/17 Aspirin [Aspirin, Baby] 81 mg PO QHS 06/09/17 gabapentin 600 mg tablet 300 mg PO QHS tab 01/06/18 loratadine 10 mg tablet 10 mg PO QDAY 01/06/18 bupropion HCl SR 150 mg tablet,12 150 mg PO BID 01/08/18 hr sustained-release pantoprazole 40 mg tablet,delayed 40 mg PO DAILY tab 01/08/18 release nitroglycerin 0.4 mg sublingual 0.4 mg SUBLINGUAL Q5M PRN #25 tab 01/15/18 tablet potassium chloride ER 20 mEq 40 meq PO QDAY #180 tab 05/20/18 tablet,extended release ramipril 2.5 mg capsule 2.5 mg PO DAILY #90 cap 06/24/18 atorvastatin 40 mg tablet 40 mg PO DINNER #30 tab 12/30/18 isosorbide mononitrate ER 60 mg 60 mg PO BID #60 tab 02/23/19 tablet,extended release 24 hr ranolazine ER 1,000 mg 1,000 mg PO BID #180 tab 03/16/19 tablet,extended release,12 hr carvedilol 25 mg tablet 25 mg PO BID #180 tab 03/30/19 clopidogrel 75 mg tablet 75 mg PO DAILY #90 tab 04/06/19 furosemide 80 mg tablet 80 mg PO QAM tab 04/16/19 - Family History Maternal Family History: Family History (Last Updated 04/18/19 @ 09:42 by MIKA Anton) Mother CAD (coronary artery disease) Father CVA (cerebral vascular accident) Myocardial infarction Brother CAD (coronary artery disease) Hx of CABG Brother CAD (coronary artery disease) Hx of CABG Other Family history of CVA Heart Disease, Stroke Paternal Family History: Family History (Last Updated 04/18/19 @ 09:42 by MIKA Anton) Mother CAD (coronary artery disease) Father CVA (cerebral vascular accident) Myocardial infarction Brother CAD (coronary artery disease) Hx of CABG Brother CAD (coronary artery disease) Hx of CABG Other Family history of CVA Cancer - Father with history of liver CA., No pertinent history Lives: With Family Smoking Status: Former smoker Tobacco Use: Non-smoker Alcohol: Occasional Drugs: None Review of Systems Constitutional: Denies: Chills, Fever, Weight Change Eyes: Denies: Pain, Vision Change HEENT: Denies: Difficulty Hearing, Difficulty Swallowing, Sinus Congestion Cardiovascular: Denies: Chest Pain, Palpitations Respiratory: Denies: Cough, Shortness of Breath Gastrointestinal: Denies: Diarrhea, Nausea, Vomiting Genitourinary: Denies: Dysuria, Hematuria Endocrine: Denies: Heat/ Cold Intolerance, Polydipsia, Polyuria Hematologic/ Lymphatic: Denies: Easy Bruising, Easy Bleeding - Physical Exam Vital Signs Temp Pulse Resp BP 96.6 F L 75 20 H 151/76 H 04/21/19 10:53 04/21/19 10:53 04/21/19 10:53 04/21/19 10:53 General: Alert, Oriented x3, Cooperative, No apparent distress, Well developed, Well nourished HEENT: Atraumatic, PERRLA, EOMI, Normocephalic Oral: Moist Mucosa Neck: No JVD Lungs: Normal air movement Abdomen: Non-Distended Extremities: No clubbing, No cyanosis, - - Patient's right above-knee amputation stump is little changed from that noted previously. The incision is largely healed, but for centrally, where there is a draining, open wound. Superficial excoriations persist on the upper portion of the right medial thigh. Wound Measurements and Assessment WC - Nurse 1 - General Ulcer Measurement Start: 04/14/19 08:17 Freq: Status: Active Protocol: Activity Type Activity Date Activity User E-Sign Co-Sign Detail Recorded Client Recorded Date Recorded By Document 04/21/19 10:53 MW [id number] 04/21/19 11:05 MW 04/21/19 10:53 Wound Center Nurse 1 [Ulcer Assessment] #5 R Med Upper Thigh -Combined with other wound No -Current Size (cm) - Length 2.5 -Current Size (cm) - Width 2.0 -Current Size (cm) - Depth 0.1 -Total Square Cm 5.00 -Photo Taken No -Epithelialization None Present -Tunneling No -Undermining/Tunneling No -Circular Undermining No -Exudate Amt Medium -Exudate Type Yellow/Green -Wound Margin Flat & Intact -Granulation Amt None Present (0 %) -Granulation Quality N/A -Slough/Fibrin Yes -Necrosis Amt Large (67-100%) -Necrotic Tissue Type Adherent Slough -Structure Exposed N/A -Texture (Amna-wound Skin Appearance) Assessed Localized Edema -Moisture (Amna-wound Skin Appearance No Abnormality ) Assessed -Color (Amna-wound Skin Appearance) No Abnormality Assessed -Temperature (Amna-wound Skin No Abnormality Appearance) (Pt Warm) -Tenderness on Palpation (Amna-wound No Skin Appearance) -Ulcer Cleansing soap and water -Foul Odor after Cleansing No -Anesthetic Used 4% Lidocaine Solution 6-Right AKA wound -Combined with other wound No -Current Size (cm) - Length 0.1 -Current Size (cm) - Width 0.1 -Current Size (cm) - Depth 0.1 -Total Square Cm 0.01 -Photo Taken No -Epithelialization None Present -Tunneling No -Undermining/Tunneling No -Circular Undermining No -Exudate Amt Large -Exudate Type Yellow/Green -Wound Margin Indistinct, Non -Visible -Granulation Amt None Present (0 %) -Granulation Quality N/A -Slough/Fibrin No -Necrosis Amt Large (67-100%) -Necrotic Tissue Type Adherent Slough -Structure Exposed N/A -Texture (Amna-wound Skin Appearance) Assessed Localized Edema Scarring -Moisture (Amna-wound Skin Appearance Assessed ) Maceration -Color (Amna-wound Skin Appearance) No Abnormality Assessed -Temperature (Amna-wound Skin No Abnormality Appearance) (Pt Warm) -Tenderness on Palpation (Amna-wound No Skin Appearance) -Ulcer Cleansing soap and water -Foul Odor after Cleansing No -Anesthetic Used 4% Lidocaine Solution [Edema Assessment] -Lower Limb Edema Present NA Musculoskeletal: No Muscle Wasting Neurological: Cranial nerves II-XII grossly intact, Neuro grossly intact Psych/Mental Status: Normal Affect, Appropriate, Alert and oriented to time, place, person, mood and affect Debridement Note Post-Debridement Measurements/Treatment WC - Nurse 2 - General Ulcer CM Notes Start: 04/14/19 08:17 Freq: Status: Active Protocol: Activity Type Activity Date Activity User E-Sign Co-Sign Detail Recorded Client Recorded Date Recorded By Document 04/14/19 09:11 DV [id number] 04/14/19 09:15 DV 04/14/19 09:11 Wound Center Nurse 2 6-Right AKA wound -Time 09:13 -Correct Patient Yes -Correct Side, Site, Position Yes -Correct Procedure No -Procedure Performed No -Wound/Ulcer Outcome Not Healed -Foul Odor after Cleansing No -Bioengineered Tissue No Pain Scale: 0-10 Numeric Is Patient Pain Free? Yes No debridement was completed today Assessment/Plan Active Problems (Last Reviewed 10/09/18 @ 16:23 by Divina Ahumada) Debility (Chronic) Above knee amputation of right lower extremity (Chronic) Surgical wound dehiscence (Chronic) Lymphedema of right lower extremity (Chronic) Assessment: This is a 63-year-old male, with history as above. He presented with a surgical wound dehiscence of the right above-knee amputation stump. Cultures were obtained at the patient's initial visit. The culture results were positive for Klebsiella oxytoca, pseudomonas aeruginosa, and MRSA. Based upon the sensitivities, patient has been placed on Cipro 750 mg p.o. daily. Consideration had been given to imaging, to determine whether the infection extends down to bone, representing an osteomyelitis. See plan, below. Plan: A discussion was undertaken with the patient, and by phone, by speaker, with Dr. Jm Rahman, the patient's orthopedic surgeon. This group discussion entailed the results of the patient's recent cultures, positive for Klebsiella, Pseudomonas, and MRSA. Dr. Rahman expressed his desire to intervene surgically, without delay. It is his clinical impression that the patient's infection extends down to involve bone. Arrangements are to be made by Dr. Rahman for the patient to undergo surgery within the next 24 to 48 hours. It is anticipated that patient will be admitted as an inpatient, under the care of Dr. Jm Rahman. Aggressive surgical revision will be performed. Dr. Rahman indicated that he may consider leaving the wound open initially, and treated by wound VAC, with secondary closure several days later. Dr. Rahman has also indicated his inclination to consult the Infectious Disease service relative to management of the positive cultures and wound infection. We are to transfer care to Dr. Rahman. The [facility]. The patient has been provided a copy of the recent culture results, including the antibiotic sensitivities, which he will take with him and present to Dr. Rahman. Influenza vaccine was not administered today. The patient is not a smoker. Patient weighs 273 pounds. He stands 6 feet 0 inches tall. His BMI is 37.0, which places him in an obesity class II category. Weight loss has been recommended, and collaboration with the patient's primary care physician has been advised.
== END 2019-05-01 23:59 ==
LOC: WC 10:45
PROVIDERS: Family Provider Family Medicine; PCP Family Medicine; Referring Provider Orthopaedic Surgery; Visit Provider Surgery
DX: T87.81 Dehiscence of amputation stump (principal); Y83.8 Other surgical procedures as the cause of abnormal reaction of the patient, or of later complication, without mention of misadventure at the time of the procedure; E66.9 Obesity, unspecified; I89.0 Lymphedema, not elsewhere classified; I11.0 Hypertensive heart disease with heart failure; I50.22 Chronic systolic (congestive) heart failure; I25.10 Atherosclerotic heart disease of native coronary artery without angina pectoris; E78.5 Hyperlipidemia, unspecified; Z68.37 Body mass index [BMI] 37.0-37.9, adult; Z71.3 Dietary counseling and surveillance; Z89.611 Acquired absence of right leg above knee; Z95.810 Presence of automatic (implantable) cardiac defibrillator; Z87.891 Personal history of nicotine dependence; Z95.1 Presence of aortocoronary bypass graft
CPT/HCPCS: 29581; 87070; 87075; 87077; 87186; 87205; 97602; 99213; G0463

== ENCOUNTER 2019-05-15 16:04 | Emergency (ER) | payer MEDICARE, OTHER, SELFPAY ==
[2019-05-15 16:05] VITALS: BP 123/65; PULSE 64; RESP 18; TEMP 36.4; O2SAT 97; BMI 38.9
--- NOTE | 2019-05-15 16:59 | ED.DEP ---
ED Disposition - Plan for ED Patient: Disposition: Home or Assisted Living Instructions: ED Wound Check Post Op Bleeding Referrals: Speedy Boswell MD [Primary Care Provider] -
--- NOTE | 2019-05-15 17:00 | ED.DCSUM_ITS ---
- ER Visit Summary Date of Service: 05/15/19 Chief Complaint: Bleeding from stump History of Present Illness: The patient is a 64 M who had a mechanical fall today. He open the door and his dog ran past him and knocked him over. He had an amputation above the knee of the right leg on January 26. He had a surgery revision done a couple of weeks ago to close the wound. He still has stitches in place. EMS was called due to the amount of bleeding. They put a dressing over it. He denies any significant pain. No dizziness or lightheadedness. Physical Examination: Vital signs reviewed. Right leg exam reveals a right above-knee amputation. There is evidence of bleeding but is since stopped. Nothing active. He still has sutures in place. No tenderness. Test Results: None performed Emergency Department Course and Treatment: I observe the patient's wound. There is no active bleeding. He will have this wound dressed. He will follow-up with the surgeon Treatment Plan: [] Disposition: Discharge Impression: Bleeding from wound status post trauma This note was generated with [employer] dictation software. It may contain incorrect words, spelling, and punctuation that were not noted in review of the chart prior to signing ED Disposition - Plan for ED Patient: Referrals: Speedy Boswell MD [Primary Care Provider] -
[2019-05-15 17:03] VITALS: BP 118/64; PULSE 65; RESP 18; O2SAT 97
--- NOTE | 2019-05-15 17:04 | ED.RN ---
clean/dry dressing applied to site, no active bleeding noted. Wound care reviewed wit patient. Denies questions or needs. Waiting for family to pick pt up for discharge.
== END 2019-05-15 17:32 | disposition home or self-care (01) ==
PROVIDERS: Emergency Provider Emergency Medicine; Family Provider Family Medicine; PCP Family Medicine
DX: Z89.611 Acquired absence of right leg above knee (principal)
CPT/HCPCS: 99284

== ENCOUNTER 2019-06-25 04:32 | Observation (INO) | payer MEDICARE, OTHER, SELFPAY ==
[2019-06-25 04:34] VITALS: BP 143/84; PULSE 76; RESP 17; TEMP 36.8; O2SAT 97; BMI 39.2
--- NOTE | 2019-06-25 04:35 | EKG12_ITS ---
Test Reason : CP Blood Pressure : / mmHG Vent. Rate : 076 BPM Atrial Rate : 076 BPM P-R Int : 172 ms QRS Dur : 096 ms QT Int : 354 ms P-R-T Axes : 062 -52 053 degrees QTc Int : 398 ms Normal sinus rhythm Left anterior fascicular block Anteroseptal infarct , age undetermined Abnormal ECG Confirmed by CAROLE DORANTES, SARAH ([id number]), movie editor ARMINDA BRIONES ([id number]) on 07/01/2019 1:14:51 PM Referred By: MARCELLUS Confirmed By:GEOFFREY LAM MD
--- NOTE | 2019-06-25 04:44 | CT_ITS ---
HISTORY: LT FLANK AND BACK PAIN, burning with urination. Hx of kidney stones with lithotripsy. Prev 2 vessel CABG and ICD. EXAMINATION: CT Abdomen And Pelvis W/O Contrast TECHNIQUE: Helically acquired images were obtained of the abdomen and pelvis without oral or IV contrast as per renal stone protocol. A radiation dose optimization technique was used for this scan. IV Contrast dosage and agent: None. Oral contrast: None. COMPARISON: 11/13/2018 FINDINGS: Lower thorax: Previous median sternotomy. An ICD pacemaker in place. No pleural effusion or pericardial effusion. Limited non-infusion exam. Allowing for this, negative liver, spleen, pancreas, gallbladder, and biliary system. Both kidneys are normal in position. 10 x 5 mm left UPJ stone with moderate left hydronephrosis accompanied by left perinephric soft tissue edema. Several additional subcentimeter stones at the mid and lower pole calyces of the left kidney. The right kidney shows several calyceal stones measuring 3 mm at the upper pole and 9 mm at the lower pole. Additional 9 mm stone at the right renal pelvis. No hydronephrosis or hydroureter on the right. The adrenal glands are not enlarged. Abdominal aorta is atherosclerotic and normal in caliber. No ascites or retroperitoneal lymph node enlargement. GI tract: No obstruction. Normal appendix. Elongated sigmoid colon. Pelvis: Left total hip prosthesis with limited visualization of the lower pelvis secondary to CT reconstruction artifact. Poor distention of the urinary bladder. The prostate shows no gross enlargement. Central prostatic calcifications. CT/Abdomen/Pelvis without Cont IMPRESSION: 1. 10 x 5 mm obstructing left UPJ stone with left renal moderate hydronephrosis together with left perinephric soft tissue edema. 2. No hydronephrosis or hydroureter on the right. 3. Bilateral intrarenal stones. 4. Chronic changes, as above. Individualized dose optimization techniques were used for this CT. at 0612 Reported and signed by: Miguel Fernando MD Electronically Signed: Miguel Fernando, at 6:25 EDT Tel , Service support ,
--- NOTE | 2019-06-25 04:45 | ED.VIS.GEN ---
History of Present Illness Chief Complaint: Flank Pain Informant: Patient Narrative: She presents with left-sided flank pain that started 2 hours ago at rest she was trying to sleep and felt sharp pain in his left flank. It radiate from the left side up to the upper ribs. He was worried it might be a heart attack. He took 4 nitroglycerin and EMS gave 4 baby aspirin. He never had chest pain or shortness of breath. He does have history of coronary artery disease status post 1 stent remotely. He denies any blood in his urine. No nausea or vomiting. He also feels it in his lower back. It seems to radiate around. He has had multiple kidney stones in the past. He had had lithotripsy 1996. I saw him in 2017 and treated him empirically for a kidney stone. He sees Dr. Holder. Severity is moderate. He had a CT M and pelvis in November 2018 that showed no AAA. He did have bilateral renal stones at that time. 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 (3) Atherosclerotic heart disease of [place] coronary artery without angina pectoris Status: Chronic Comment: CABG x2- PARK to LAD, SARIAH to OM 06/01/05; PTCA/stent to prox LAD 02/02/05; PTCA/stent instent restenosis of prox LAD 10/15/13 (4) Automatic implantable cardioverter-defibrillator in situ Status: Chronic (5) Chronic systolic congestive heart failure Status: Chronic (6) Debility Status: Chronic (7) Family history of CVA Status: Chronic (8) History of tobacco abuse Status: Chronic (9) Hyperlipidemia Status: Chronic (10) Hypertension Status: Chronic (11) ICD (implantable cardioverter-defibrillator) in place Status: Chronic Comment: ICD Implant 2009 (12) Ischemic cardiomyopathy Status: Chronic (13) Lymphedema of right lower extremity Status: Chronic (14) Obesity (BMI 30-39.9) Status: Chronic (15) Postsurgical aortocoronary bypass status Status: Chronic Comment: CABG x2- PARK to LAD, SARIAH to OM 06/01/05 (16) Presence of stent in coronary artery Status: Chronic Comment: PTCA/stent to prox LAD 02/02/05; PTCA/stent instent restenosis of prox LAD 10/15/13 (17) Shortness of breath Status: Chronic (18) Surgical wound dehiscence Status: Chronic Past Medical History - Allergies and Home Meds Allergies/Adverse Reactions: Allergies No Known Allergies Allergy (Verified 06/25/19 04:33) Primary Care Physician: Speedy Boswell MD [Primary Care Provider] - Prior records reviewed: Yes Past Medical History: - - See problem list Surgical History: coronary bypass surgery - CABG x 2., total hip arthroplasty, tonsillectomy, - - AICD; 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 More recently, in January 2019, patient underwent right above-knee amputation, and subsequent revision. Patient is undergone bilateral shoulder surgery. Patient also has previously undergone coronary stenting. Smoking Status: Former smoker Alcohol: None Drugs: None - Family History Maternal Family History: Family History (Last Updated 04/18/19 @ 09:42 by MIKA Anton) Mother CAD (coronary artery disease) Father CVA (cerebral vascular accident) Myocardial infarction Brother CAD (coronary artery disease) Hx of CABG Brother CAD (coronary artery disease) Hx of CABG Other Family history of CVA Family History: Reports: Heart Disease, Stroke Paternal Family History: Family History (Last Updated 04/18/19 @ 09:42 by MIKA Anton) Mother CAD (coronary artery disease) Father CVA (cerebral vascular accident) Myocardial infarction Brother CAD (coronary artery disease) Hx of CABG Brother CAD (coronary artery disease) Hx of CABG Other Family history of CVA Family History: Reports: Cancer - Father with history of liver CA., No pertinent history Review of Systems General: Denies: Chills, Fever, Sweats Eyes: Denies: Visual changes - bilaterally, Diplopia ENT: Denies: Rhinorrhea, Sore throat Cardiovascular: Denies: Chest pain, Palpitations Respiratory: Denies: Dyspnea, Cough, Dyspnea on exertion Gastrointestinal: Denies: Abdominal pain, Nausea, Vomiting, Diarrhea, Melena, Hematochezia Genitourinary: Denies: Dysuria, Hematuria, Frequency Musculoskeletal: Reports: -. Denies: Back pain, Extremity Pain Skin: Denies: Rash, Wounds Neurological: Denies: Headache, Weakness, Numbness Physical Exam Vital Signs/Narrative: Vital Signs Temp Pulse Resp BP Pulse Ox 06/25/19 04:34 98.3 F 76 17 143/84 H 97 General: Well nourished, Well developed, No Acute Distress Head: Normocephalic, Atraumatic Eyes: Perrl, EOMI ENT: Moist mucous membranes, No rhinorrhea Neck: Supple, Nontender Cardiovascular: Regular rate, Regular rhythm, No murmurs Respiratory: No distress, CTA bilaterally, Chest nontender Abdomen: Soft, Nontender, Nondistended, Normal bowel sounds Back: Nontender, Normal Inspection Extremities: Nontender, No edema Skin: Normal color, No rash Neurological: Alert, Oriented x3, Cranial nerves II-XII grossly intact, Normal Strength, Normal Sensation Psychological: Normal affect, Normal Mood Diagnostic/Tx/Re-eval - Medical Decision Making EKG obtained shows sinus rhythm with mild ST elevation in V2 and V3 that is unchanged from previous EKGs from 2017. No acute ischemia noted. Old Q waves in V2 and V3 as well. These are unchanged from prior. At this time I think the patient has a kidney stone. IV established patient given morphine Toradol and IV fluids. Lab work CT flank obtained lab work unremarkable except for hematuria. Patient felt much better after treatment. CT shows a large 10 mm left UPJ kidney stone with hydro-and edema. Discussed with Dr. Holder. Patient will be admitted for further treatment ED Disposition - Plan for ED Patient: Disposition: Psychiatric Hospital or Unit Diagnosis: 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 on left side Referrals: Speedy Boswell MD [Primary Care Provider] -
[2019-06-25] MEDS: Morphine 4 MG/ML Syringe IV (04:50)
[2019-06-25] MEDS: Ketorolac 30 MG/ML Syringe IV (04:50)
[2019-06-25 04:51] LABS: Absolute Lymphocyte Count 1.18 X10^3/uL (0.83-4.51); Absolute Neutrophil Count 6.6 X10^3/uL (2.0-7.7); Basophil# 0.06 X10^3/uL; Basophil% 0.7 % (0-1); Eosinophil# 0.18 X10^3/uL; Hematocrit 39.8 % (40-54); Hemoglobin 13.1 g/dL (13.0-16.5); Lymphocyte # 1.18 X10^3/ul (4.0); Lymphocyte % 13.2 % (19-41); Mean Corp Hgb Conc 32.9 g/dL (32-36); Mean Corpuscular Hgb 28.9 pg (27.0-32.0); Mean Corpuscular Volume 87.9 fL (80-94); Mean Platelet Vol. 9.7 fl (6.2-12.0); Monocyte# 0.81 X10^3/uL; Monocyte% 9.1 % (0-10); NRBC Flagged by Analyzer 0 % (0-5); Neutrophil # 6.62 X10^3/uL (2.7-7.7); Neutrophil % 74.2 % (47-70); Platelet Count 177 K/mm3 (150-450); RBC Distribution Width CV 15.2 % (11.6-14.6); RBC Distribution Width SD 48.3 fl (35.1-43.9); Red Blood Count 4.53 M/mm3 (4.6-6.2); White Blood Count 8.9 K/mm3 (4.4-11.0)
[2019-06-25 05:13] LABS: Bacteria 0 SEEN /hpf (None Seen); Mucous, Urine 0 SEEN /hpf (<or=2+)
[2019-06-25 05:15] LABS: Color, Urine Yellow (Yellow); Glucose, Dipstick Normal (Normal); Ketone-Dipstick Negative (Negative); Leukocyte Esterase-Dipstick 25 /ul (Negative); Nitrite-Dipstick Negative (Negative); Occult Blood-Urine 250 /ul (Negative); Protein-Dipstick 15 mg/dl (Negative); Urine Bilirubin Dipstick Negative (Negative); Urine Clarity Sl. Cloudy (Clear); Urine Urobilinogen Normal (Normal)
[2019-06-25 05:17] LABS: Anion Gap 7 (5-15); BUN 23 mg/dL (7-18); BUN/Creat Ratio 12.6 RATIO (10-20); Calcium,Total 9.3 mg/dL (8.5-10.1); Chloride 108 mmol/L (98-107); Creatinine, Serum 1.83 mg/dL (0.70-1.30); EST Glomerular Filtration Rate 40 mL/min (>60); Est Glom Filt Rate - Afr Amer 48 mL/min (>60); Estimated Creatinine Clearance 44.76 ml/min; Glucose 124 mg/dL (74-106); Potassium 4.4 mmol/L (3.5-5.1); Sodium Level 140 mmol/L (136-145)
[2019-06-25] MEDS: 0.9% Normal Saline 1,000 ML 1000 ML IV (05:23)
[2019-06-25 05:47] LABS: Red Blood Cells-Urine 25-50 SEEN /hpf (0-5); Squamous Epithelial Cells - UA 0-5 SEEN /hpf (0-5); White Blood Cells 0-5 SEEN /hpf (0-5)
[2019-06-25 06:45] VITALS: BP 123/93; PULSE 73; PULSE 75; RESP 11; RESP 13; O2SAT 97; O2SAT 98
--- NOTE | 2019-06-25 07:13 | HP.PCM_ITS ---
History and Physical Date of Admission: 06/25/19 I have kidney stones. HPI: ARISTIDES ISSA is a 63 year-old male established patient who is here for renal calculi. has stone in both kidneys on KUB occasional pain in the lower back no gross hematuria presents to ER with obstruction of the left kidney at left UPJ with a 10mm stone admitted for pain control. HPI: Currently he is on watchful waiting for his lower urinary tract symptoms. He is not on new medications for symptoms of prostate enlargement. He is not having problems getting his urine stream started. He does not have a good size and strength to his urinary stream. He is not having problems with emptying his bladder well. He does dribble at the end of urination. Patient denies getting up to urinate in the night. He is satisfied with the wayhe is voiding. still has dribbling h/o TUIP in the past x 2 ALLERGIES: None MEDICATIONS: Altace 5 mg capsule 1 capsule PO BID Aspir 81 Coreg 25 mg tablet 1 tablet PO Daily Cyclobenzaprine Hcl 10 mg tablet 1 tablet PO TID PRN Escitalopram Oxalate 20 mg tablet Fluticasone Propionate 50 mcg/actuation spray, suspension Furosemide 40 mg tablet 1 tablet PO Daily Horizant 600 mg tablet, extended release Klor-Con 20 meq packet 1 PO Daily Lipitor 40 mg tablet 1 tablet PO Daily Loratadine 10 mg tablet Mirapex Mobic 15 mg tablet Multivitamins 1 PO Daily Nexium 40 mg capsule,delayed release Niaspan 1,000 mg tablet, extended release 24 hr 1 tablet PO Daily Nitroglycerin 0.4 mg tablet, sublingual 1 tablet PO Daily PRN Omeprazole 20 mg capsule,delayed release 1 capsule PO Daily Plavix 75 mg tablet Ranexa Singulair 10 mg tablet 1 tablet PO Daily Temazepam 30 mg capsule PSH: Cysto Remove Stent FB Sim - 2014 Cystoscopy - 2014, 2012 Cystoscopy Insert Stent - 2014 Cystoscopy TUIP - 2010 Initial Male VB Sounds - 2014 Laser Surgery Prostate - 2014 Renal ESWL, Bilateral - 2011 NON- PSH: Colonoscopy Coronary Artery Bypass Grafting Heart Pacemaker/ICD, defibrillator. - about 1999 Hip Replacement, Left - about 2008 Patient documented to have received pneumococcal vaccination Pneumococcal Vaccine Admin Shoulder Surgery (Unspecified), Left Sinus Surgery PMH: Benign prostatic hyperplasia with lower urinary tract symptoms - 11/12/2016, - 2014, - 2014, - 2014, - 2014, - 2014, - 2014, - 2014, - 2013, - 2012, - 2012, - 2012 Post-traumatic urethral stricture, male, meatal - 2014, - 2014 Post-void dribbling - 2014, - 2014, - 2014, - 2014, - 2014 (Stable), - 2013, - 2013, - 2012 Other specified disorders of kidney and ureter - 2014, - 2014 Calculus of kidney - 2013 Urinary calculus, unspecified - 2012, - 2012, - 2011, - 2011 Unspecified renal colic - 2011, - 2011 PMH Notes: [place] of right leg- right leg surgery. NON- PMH: Encounter for surgical aftcr following surgery on the sys - 2014, - 2014 Athscl heart disease of [place] coronary artery w/o ang pctrs Essential (primary) hypertension Gastro-esophageal reflux disease without esophagitis Hyperlipidemia, unspecified Idiopathic progressive neuropathy Major depressive disorder, single episode, unspecified Mild intermittent asthma, uncomplicated Obesity, unspecified Immunizations: None FAMILY HISTORY: Cancer - Runs in Family Cardiovascular disease - Runs in Family Diabetes - Runs in Family SOCIAL HISTORY: Marital Status: Preferred Language: Scottish; Ethnicity: Not Or ; Race: White Current Smoking Status: Patient has never smoked. Smoking cessation counseling was provided. Does not use smokeless tobacco. Social Drinker. Does not use drugs. Drinks 2 caffeinated drinks per day. Has had a blood transfusion. REVIEW OF SYSTEMS: Constitutional: Patient denies weight gain, weight loss, fever, and chills. Genitourinary: post void dribbling. Patient reports frequent urination. Patient denies urinary retention, leakage of urine, painful urination, blood in the urine, frequent uti's, history of stones, difficulty starting stream, weak stream/scanty, and bedwetting. Notes: Updated from previous visit 11/04/2017 with review from patient as noted above. VITAL SIGNS: 11/06/2018 01:20 PM Weight 312 lb / 141.52 kg Height 71.5 in / 181.61 cm BP 132/74 mmHg BMI 42.9 kg/m? - BMI Counseling was provided. MULTI-SYSTEM PHYSICAL EXAMINATION: Constitutional: Well-nourished. No physical deformities. Normally developed. Good grooming. Neck: Neck symmetrical, not swollen. Normal tracheal position. Respiratory: No labored breathing, no use of accessory muscles. Cardiovascular: Normal temperature, normal extremity pulses, no swelling, no varicosities. Lymphatic: No enlargement of neck, axillae, groin. Skin: No paleness, no jaundice, no cyanosis. No lesion, no ulcer, no rash. Neurologic / Psychiatric: Oriented to time, oriented to place, oriented to person. No depression, no anxiety, no agitation. Gastrointestinal: No mass, no tenderness, no rigidity, non obese abdomen. Eyes: Normal conjunctivae. Normal eyelids. Ears, Nose, Mouth, and Throat: Left ear no scars, no lesions, no masses. Right ear no scars, no lesions, no masses. Nose no scars, no lesions, no masses. Normal hearing. Normal lips. Musculoskeletal: right leg chronic swollen PAST DATA REVIEWED: Source Of History: Patient Records Review: Previous Patient Records Urine Test Review: Urinalysis 11/12/16 03/23/13 02/27/11 PSA Total PSA 0.55 ng/mL 0.61 0.40 ASSESSMENT: ICD-10 Details 1 : Benign prostatic hyperplasia with lower urinary tract symptoms - N40.1 2 Calculus of kidney left side obstuction and hydronephrosis, high grade obstruction right side 2 non obstructing stones. - N20.0 PLAN: Admit for pain control stop all blood thinners possible stent and treatment tomorrow with left stent and left Ureteroscopy laser stone.
[2019-06-25 07:50] VITALS: BP 126/83; PULSE 68; RESP 16; TEMP 36.4; O2SAT 98
[2019-06-25 07:52] VITALS: BMI 38.4
[2019-06-25 08:01] VITALS: BMI 38.4
[2019-06-25 08:11] LABS: Anion Gap 7 (5-15); BUN 23 mg/dL (7-18); BUN/Creat Ratio 12.8 RATIO (10-20); Calcium,Total 8.9 mg/dL (8.5-10.1); Chloride 110 mmol/L (98-107); EST Glomerular Filtration Rate 41 mL/min (>60); Est Glom Filt Rate - Afr Amer 49 mL/min (>60); Estimated Creatinine Clearance 45.51 ml/min; Glucose 121 mg/dL (74-106); Potassium 4.7 mmol/L (3.5-5.1); Sodium Level 142 mmol/L (136-145)
[2019-06-25] MEDS: 0.9% Normal Saline 1,000 ML 125 ML IV ×2 (08:26→15:22)
[2019-06-25] MEDS: HYDROcodone Bitartrate/Apap 5/325 Tablet PO (08:40)
[2019-06-25 09:55] VITALS: BP 143/84; PULSE 66; RESP 16; TEMP 36.4; O2SAT 98
[2019-06-25] MEDS: Pantoprazole Sodium 40 MG Tablet PO (09:58)
[2019-06-25] MEDS: Isosorbide Mononitrate 60 MG Tablet PO ×2 (09:58→21:35)
[2019-06-25] MEDS: Furosemide 80 MG Tablet PO (09:59)
[2019-06-25] MEDS: buPROPion (SR) 150 MG Tablet.SA PO ×2 (09:59→21:41)
[2019-06-25] MEDS: Carvedilol 25 MG Tablet PO ×2 (09:59→21:35)
[2019-06-25] MEDS: Ranolazine 500 MG Tablet 1000 MG PO ×2 (09:59→21:41)
[2019-06-25] MEDS: Ramipril 2.5 MG Capsule PO (09:59)
[2019-06-25] MEDS: Loratadine 10 MG Tablet PO (10:00)
[2019-06-25] MEDS: Docusate Sodium 100 MG Capsule 200 MG PO ×2 (10:00→21:34)
[2019-06-25 10:16] LABS: Anion Gap 6 (5-15); BUN 23 mg/dL (7-18); BUN/Creat Ratio 12.4 RATIO (10-20); Calcium,Total 8.9 mg/dL (8.5-10.1); Chloride 109 mmol/L (98-107); Creatinine, Serum 1.85 mg/dL (0.70-1.30); EST Glomerular Filtration Rate 39 mL/min (>60); Est Glom Filt Rate - Afr Amer 48 mL/min (>60); Estimated Creatinine Clearance 44.28 ml/min; Glucose 121 mg/dL (74-106); Potassium 4.6 mmol/L (3.5-5.1); Sodium Level 141 mmol/L (136-145)
[2019-06-25 11:49] LABS: Anion Gap 4 (5-15); BUN 21 mg/dL (7-18); Calcium,Total 8.7 mg/dL (8.5-10.1); Chloride 109 mmol/L (98-107); Creatinine, Serum 1.91 mg/dL (0.70-1.30); EST Glomerular Filtration Rate 38 mL/min (>60); Est Glom Filt Rate - Afr Amer 46 mL/min (>60); Estimated Creatinine Clearance 42.89 ml/min; Glucose 129 mg/dL (74-106); Potassium 4.2 mmol/L (3.5-5.1); Sodium Level 139 mmol/L (136-145)
[2019-06-25] MEDS: Cefazolin 1 GM/50 ML BAG IV ×2 (13:57→21:34)
[2019-06-25 14:20] LABS: Anion Gap 5 (5-15); BUN 22 mg/dL (7-18); BUN/Creat Ratio 10.8 RATIO (10-20); Calcium,Total 8.6 mg/dL (8.5-10.1); Chloride 108 mmol/L (98-107); Creatinine, Serum 2.03 mg/dL (0.70-1.30); EST Glomerular Filtration Rate 35 mL/min (>60); Est Glom Filt Rate - Afr Amer 43 mL/min (>60); Estimated Creatinine Clearance 40.35 ml/min; Glucose 112 mg/dL (74-106); Potassium 4.4 mmol/L (3.5-5.1); Sodium Level 138 mmol/L (136-145)
[2019-06-25 15:20] VITALS: BP 108/66; PULSE 68; RESP 16; TEMP 36.4; O2SAT 95
[2019-06-25 16:27] LABS: Anion Gap 8 (5-15); BUN 23 mg/dL (7-18); BUN/Creat Ratio 11.6 RATIO (10-20); Calcium,Total 8.7 mg/dL (8.5-10.1); Chloride 110 mmol/L (98-107); Creatinine, Serum 1.99 mg/dL (0.70-1.30); EST Glomerular Filtration Rate 36 mL/min (>60); Est Glom Filt Rate - Afr Amer 44 mL/min (>60); Estimated Creatinine Clearance 41.16 ml/min; Glucose 111 mg/dL (74-106); Potassium 4.4 mmol/L (3.5-5.1); Sodium Level 142 mmol/L (136-145)
[2019-06-25] MEDS: Morphine 2 MG/ML Syringe IV (16:33)
[2019-06-25] MEDS: Atorvastatin Calcium 40 MG Tablet PO (16:36)
[2019-06-25 18:29] LABS: Anion Gap 4 (5-15); BUN 23 mg/dL (7-18); BUN/Creat Ratio 11.2 RATIO (10-20); Calcium,Total 8.7 mg/dL (8.5-10.1); Chloride 108 mmol/L (98-107); Creatinine, Serum 2.05 mg/dL (0.70-1.30); EST Glomerular Filtration Rate 35 mL/min (>60); Est Glom Filt Rate - Afr Amer 42 mL/min (>60); Estimated Creatinine Clearance 39.96 ml/min; Glucose 100 mg/dL (74-106); Potassium 4.5 mmol/L (3.5-5.1); Sodium Level 140 mmol/L (136-145)
[2019-06-25] MEDS: Ketorolac 15 MG/ML Vial IV (18:56)
[2019-06-25 21:28] VITALS: BP 133/70; PULSE 72; RESP 15; TEMP 36.4; O2SAT 98
[2019-06-25] MEDS: Gabapentin 300 MG Capsule PO (21:36)
[2019-06-25] MEDS: Temazepam 15 MG Capsule PO (22:58)
[2019-06-26] VITALS (7 sets, daily range): BP systolic 113–145; BP diastolic 67–85; PULSE 61–85; RESP 12–16; TEMP 36.2–36.7; O2SAT 96–99; BMI 86.2; BMI 38.4
[2019-06-26] MEDS: 0.9% Normal Saline 1,000 ML 125 ML IV ×2 (00:20→07:40)
[2019-06-26] MEDS: HYDROcodone Bitartrate/Apap 5/325 Tablet PO ×2 (00:39→18:51)
[2019-06-26 05:58] LABS: Hematocrit 35.2 % (40-54); Hemoglobin 11.4 g/dL (13.0-16.5); Mean Corp Hgb Conc 32.4 g/dL (32-36); Mean Corpuscular Hgb 28.5 pg (27.0-32.0); Mean Platelet Vol. 9.6 fl (6.2-12.0); Platelet Count 140 K/mm3 (150-450); RBC Distribution Width CV 15.2 % (11.6-14.6); RBC Distribution Width SD 48.9 fl (35.1-43.9); White Blood Count 5.2 K/mm3 (4.4-11.0)
[2019-06-26 06:11] LABS: Anion Gap 5 (5-15); BUN 20 mg/dL (7-18); BUN/Creat Ratio 10.3 RATIO (10-20); Calcium,Total 8.5 mg/dL (8.5-10.1); Chloride 109 mmol/L (98-107); Creatinine, Serum 1.95 mg/dL (0.70-1.30); EST Glomerular Filtration Rate 37 mL/min (>60); Est Glom Filt Rate - Afr Amer 45 mL/min (>60); Estimated Creatinine Clearance 42.01 ml/min; Glucose 131 mg/dL (74-106); Potassium 3.9 mmol/L (3.5-5.1); Sodium Level 139 mmol/L (136-145)
[2019-06-26] MEDS: Isosorbide Mononitrate 60 MG Tablet PO (08:56)
[2019-06-26] MEDS: Carvedilol 25 MG Tablet PO (08:56)
[2019-06-26] MEDS: buPROPion (SR) 150 MG Tablet.SA PO (08:56)
[2019-06-26] MEDS: Ranolazine 500 MG Tablet 1000 MG PO (08:56)
[2019-06-26] MEDS: Loratadine 10 MG Tablet PO (08:56)
[2019-06-26] MEDS: Furosemide 80 MG Tablet PO (08:56)
[2019-06-26] MEDS: Docusate Sodium 100 MG Capsule 200 MG PO (08:57)
[2019-06-26] MEDS: Ramipril 2.5 MG Capsule PO (08:57)
[2019-06-26] MEDS: Pantoprazole Sodium 40 MG Tablet PO (08:57)
--- NOTE | 2019-06-26 13:26 | NURSING ---
This RN called report to Monica DAWKINS in [facility].
--- NOTE | 2019-06-26 16:08 | DCINST_ITS ---
Discharge Diet: Light diet - advance as tolerated Discharge Activity: Return to Normal Activity Call your doctor if you observe: Fever of 101 or Higher Suture Line Care: Avoid Pulling/Pushing, Avoid Pinching/Bending Allergies/Adverse Reactions: Allergies No Known Allergies Allergy (Verified 06/25/19 04:33) Medications to take at Discharge Temazepam [Restoril] 15 mg PO QHS 05/24/17 Aspirin [Aspirin, Baby] 81 mg PO QHS 06/09/17 gabapentin 600 mg tablet 300 mg PO QHS tab 01/06/18 bupropion HCl SR 150 mg tablet,12 hr sustained-release 150 mg PO BID 01/08/18 pantoprazole 40 mg tablet,delayed release 40 mg PO DAILY tab 01/08/18 nitroglycerin 0.4 mg sublingual tablet 0.4 mg SUBLINGUAL Q5M PRN #25 tab 01/15/18 potassium chloride ER 20 mEq tablet,extended release 40 meq PO QDAY #180 tab 05/20/18 ramipril 2.5 mg capsule 2.5 mg PO DAILY #90 cap 06/24/18 atorvastatin 40 mg tablet 40 mg PO DINNER #30 tab 12/30/18 isosorbide mononitrate ER 60 mg tablet,extended release 24 hr 60 mg PO BID #60 tab 02/23/19 ranolazine ER 1,000 mg tablet,extended release,12 hr 1,000 mg PO BID #180 tab 03/16/19 carvedilol 25 mg tablet 25 mg PO BID #180 tab 03/30/19 clopidogrel 75 mg tablet 75 mg PO DAILY #90 tab 04/06/19 furosemide 80 mg tablet 40 mg PO BID tab 04/16/19 niacin ER 1,000 mg tablet,extended release 24 hr 1,000 mg PO QHS #30 tab 06/03/19 Primary Care Physician: Speedy Boswell MD [Primary Care Provider] - Test Results: Test results from this visit will be discussed in further detail at your follow- up appointment, if applicable. Please Follow Up With: Ravi Holder MD When: please call to make an appointment.
--- NOTE | 2019-06-26 17:26 | PCM.OPRPT ---
Report of Operation Date of Procedure: 06/26/19 Pre-Operative Diagnosis: Left renal calculi x3 with obstruction of the kidney at the left UPJ Post-Operative Diagnosis: The same Surgery/Procedure Performed:: Cystoscopy, left retrograde pyelogram, balloon dilation of the ureter, left laser lithotripsy of stones and left stent placement, interpretation of flouro images. Description of Surgical Findings:: 64-year-old male presented to the hospital obstruction of the left kidney from kidney stones he was admitted for pain control he had a stone at the UPJ causing obstruction and multiple stones in left kidney also has stones in the right kidney as well. Because of this recommended we admit the patient and then was taken to surgery for laser lithotripsy of the stone fragments. 64-year-old male taken back to the operating room at the smooth induction of general anesthesia he was placed in dorsolithotomy position he had an amputated right leg so with the use gel pad and some tape to get the leg and stirrup in the left leg was placed in properly after position the patient very carefully we then prepped and draped penis and testicles in usual sterile fashion, went into the bladder with a 21 Portuguese rigid cystourethroscope and a mild meatal stenosis the left the rest of the urethral channel was normal prostate was open from prior laser got into the bladder the left and right ureter orifice were normal position cannulated the left ureteral orifice with a Glidewire advanced a wire up into the left ureter over the Glidewire a performed a balloon dilation of the distal ureter with a balloon dilator balloon dilated the ureter to well Portuguese. After balloon dilating the ureter then went up with a ureteroscope and encountered the first stone that was pushed back into the kidney at the UPJ this is laser little tiny pieces and then encountered a second stone those laser litho-type is in the upper pole and the finding of third stone in the midpole is laser little tiny pieces I then performed a retrograde pyelogram interpreted the fluoroscopic images I then left the wire in place all the visible stone were identified and laser Lieutenant pieces that should pass on her own back down the ureter over the wire no injury or trauma perforation of the ureter was noted and then over the wire place a stent but the string on the stent but cut the string short so it would be extracted too soon with prior leave the stent in for about 2 weeks and then get the stent out in 2 weeks with a KUB beforehand we also may want to treat the stones in the right kidney. Type of Anesthesia:: General Drains: stent left side - Admit VTE Documentation VTE Present on Admission: No VTE Mechan Device Prophylaxis: SCD's
[2019-06-26] MEDS: Atorvastatin Calcium 40 MG Tablet PO (18:51)
== END 2019-06-26 19:00 | disposition home or self-care (01) ==
LOC: ED 06:37 → PCU 07:31
PROVIDERS: Anesthesiology; Admitting Provider Urology; Emergency Provider Emergency Medicine; Family Provider Family Medicine; PCP Family Medicine; Visit Provider Urology
PROC: (CPT 52356; principal; 2019-06-26 14:30)
DX: N13.2 Hydronephrosis with renal and ureteral calculous obstruction (principal); I25.10 Atherosclerotic heart disease of native coronary artery without angina pectoris; I50.22 Chronic systolic (congestive) heart failure; I11.0 Hypertensive heart disease with heart failure; E78.5 Hyperlipidemia, unspecified; E66.9 Obesity, unspecified; I25.5 Ischemic cardiomyopathy; K21.9 Gastro-esophageal reflux disease without esophagitis; J45.20 Mild intermittent asthma, uncomplicated; N40.1 Benign prostatic hyperplasia with lower urinary tract symptoms; I89.0 Lymphedema, not elsewhere classified; Z87.442 Personal history of urinary calculi; Z89.611 Acquired absence of right leg above knee; Z95.810 Presence of automatic (implantable) cardiac defibrillator; Z87.891 Personal history of nicotine dependence; Z95.1 Presence of aortocoronary bypass graft; Z71.3 Dietary counseling and surveillance; Z79.899 Other long term (current) drug therapy; Z79.82 Long term (current) use of aspirin; Z79.02 Long term (current) use of antithrombotics/antiplatelets
CPT/HCPCS: 00918; 52356; 36415; 74176; 76000; 80048; 81001; 84484; 85025; 85027; 93005; 96361; 96365; 96366; 96375; 96376; 99218; 99285; J7030; A4216; C1769; G0378

== ENCOUNTER → 2019-07-01 11:59 | Outpatient (CLI) | payer MEDICARE, OTHER, SELFPAY ==
[2019-06-26 08:19] VITALS: BMI 86.2
[2019-07-01 15:08] LABS: Anion Gap 9 (5-15); BUN 19 mg/dL (7-18); BUN/Creat Ratio 12.8 RATIO (10-20); Calcium,Total 9.3 mg/dL (8.5-10.1); Chloride 106 mmol/L (98-107); Creatinine, Serum 1.48 mg/dL (0.70-1.30); EST Glomerular Filtration Rate 51 mL/min (>60); Est Glom Filt Rate - Afr Amer 62 mL/min (>60); Glucose 120 mg/dL (74-106); Potassium 4.1 mmol/L (3.5-5.1); Sodium Level 143 mmol/L (136-145)
== END ==
PROVIDERS: Family Provider Family Medicine; PCP Family Medicine; Referring Provider Family Medicine; Visit Provider Family Medicine
DX: N28.9 Disorder of kidney and ureter, unspecified (principal)
CPT/HCPCS: 36415; 80048

== ENCOUNTER → 2019-07-07 15:09 | Outpatient (CLI) | payer MEDICARE, OTHER, SELFPAY ==
[2019-06-26 08:19] VITALS: BMI 86.2
--- NOTE | 2019-07-07 15:14 | RAD_ITS ---
STUDY: X-RAY - ABDOMEN/PELVIS REASON FOR EXAM: Male, 64 years old. 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 TECHNIQUE: Two AP supine views of the abdomen and pelvis. COMPARISON: CT dated 06/25/2019 FINDINGS: There is a left ureteral stent in place. There is a 9 mm stone and a 6 mm stone overlying the right renal fossa. There is a 5 mm stone overlying the left renal fossa. There is no bowel obstruction. There is air and stool to the level of the rectum. The visualized osseous structures are within normal limits. RAD/Abdomen Single View IMPRESSION: No bowel obstruction. Bilateral subcentimeter stones overlying the renal shadows. Left ureteral stent in place. If a more detailed evaluation is desired, further evaluation with CT is recommended. Electronically Signed: Collin Benedict, at 16:26 EDT Tel , Service support ,
== END ==
PROVIDERS: Family Provider Family Medicine; PCP Family Medicine; Referring Provider Urology; Visit Provider Urology
DX: N20.0 Calculus of kidney (principal)
CPT/HCPCS: 74018

== ENCOUNTER 2019-07-15 13:37 | Day surgery (SDC) | payer MEDICARE, OTHER, SELFPAY ==
[2019-06-26 08:19] VITALS: BMI 86.2
[2019-07-15 13:59] VITALS: BP 126/65; PULSE 75; RESP 18; TEMP 35.9; O2SAT 99; BMI 39.6
[2019-07-15] MEDS: Cefazolin 2 GM in 0.9% Normal Saline 100 ML IV (16:28)
--- NOTE | 2019-07-15 17:07 | DCINST_ITS ---
Discharge Diet: Light diet - advance as tolerated Discharge Activity: Return to Normal Activity Call your doctor if your incision/area has: Continuous Slow Oozing Suture Line Care: Avoid Pulling/Pushing, Avoid Pinching/Bending Allergies/Adverse Reactions: Allergies No Known Allergies Allergy (Verified 07/10/19 14:50) Medications to take at Discharge Temazepam [Restoril] 15 mg PO QHS 05/24/17 Aspirin [Aspirin, Baby] 81 mg PO QHS 06/09/17 gabapentin 600 mg tablet 300 mg PO QHS tab 01/06/18 bupropion HCl SR 150 mg tablet,12 hr sustained-release 150 mg PO BID 01/08/18 pantoprazole 40 mg tablet,delayed release 40 mg PO DAILY tab 01/08/18 nitroglycerin 0.4 mg sublingual tablet 0.4 mg SUBLINGUAL Q5M PRN #25 tab 01/15/18 potassium chloride ER 20 mEq tablet,extended release 40 meq PO QDAY #180 tab 05/20/18 ramipril 2.5 mg capsule 2.5 mg PO DAILY #90 cap 06/24/18 atorvastatin 40 mg tablet 40 mg PO DINNER #30 tab 12/30/18 isosorbide mononitrate ER 60 mg tablet,extended release 24 hr 60 mg PO BID #60 tab 02/23/19 ranolazine ER 1,000 mg tablet,extended release,12 hr 1,000 mg PO BID #180 tab 03/16/19 carvedilol 25 mg tablet 25 mg PO BID #180 tab 03/30/19 clopidogrel 75 mg tablet 75 mg PO DAILY #90 tab 04/06/19 furosemide 80 mg tablet 40 mg PO BID tab 04/16/19 niacin ER 1,000 mg tablet,extended release 24 hr 1,000 mg PO QHS #30 tab 06/03/19 Primary Care Physician: Speedy Boswell MD [Primary Care Provider] - Test Results: Test results from this visit will be discussed in further detail at your follow- up appointment, if applicable. Please Follow Up With: Ravi Holder MD When: in 2 weeks, please call to make an appointment.
--- NOTE | 2019-07-15 17:08 | PCM.OPRPT ---
Report of Operation Date of Procedure: 07/15/19 Pre-Operative Diagnosis: Right kidney stone Post-Operative Diagnosis: Same Surgery/Procedure Performed:: Right extracorporeal shockwave lithotripsy Description of Surgical Findings:: 64-year-old male with a history of kidney stones presents for treatment of a right large kidney stone and. He was taken back to the operating room at the smooth induction of general anesthesia he was placed supine on the table. We then used fluoroscopy to place the F2 machine at the stone, we localized the stone to the F2 focal point we then proceeded with shockwave lithotripsy we gave a total of 3000 shockwaves to the stone at a rate from 90-120 power from 5 to 7 kV at the end of the treatment cycle is only partial fragmentation and minimal fragmentation of the stone was still visible on her x-ray decided not to leave the stent for the stone really did not break up that much. Very likely he will need another treatment with a can consider another shockwave treatment or ureteroscopy and laser. Patient anesthetic was reversed he was taken back to PACU in good condition we can see him in a few weeks with a KUB. Type of Anesthesia:: General Drains: no stent - Admit VTE Documentation VTE Present on Admission: No VTE Mechan Device Prophylaxis: SCD's
[2019-07-15] MEDS: Lactated Ringers 1,000 ML 75 ML IV (17:10)
[2019-07-15 17:13] VITALS: BP 120/61; BP 126/65; PULSE 76; RESP 14; TEMP 36.1; O2SAT 95
[2019-07-15 17:17] VITALS: BP 112/60; BP 126/65; PULSE 75; RESP 14; O2SAT 94
[2019-07-15 17:24] VITALS: BP 124/81; BP 126/65; PULSE 78; RESP 14; TEMP 36.3; O2SAT 96
[2019-07-15] MEDS: Ketorolac 15 MG/ML Vial IV (17:31)
[2019-07-15 18:08] VITALS: BP 126/65
== END 2019-07-15 18:38 | disposition home or self-care (01) ==
LOC: SDC 13:37 → AC 13:38
PROVIDERS: Family Provider Family Medicine; PCP Family Medicine; Referring Provider Urology; Visit Provider Urology
PROC: (CPT 50590; principal; 2019-07-15 15:35)
DX: N20.0 Calculus of kidney (principal); I25.10 Atherosclerotic heart disease of native coronary artery without angina pectoris; I10 Essential (primary) hypertension; K21.9 Gastro-esophageal reflux disease without esophagitis; E78.5 Hyperlipidemia, unspecified; F32.9 Major depressive disorder, single episode, unspecified; Z95.810 Presence of automatic (implantable) cardiac defibrillator; Z87.891 Personal history of nicotine dependence
CPT/HCPCS: 00873; 50590; J7120; J2405

== ENCOUNTER → 2019-07-30 16:07 | Outpatient (CLI) | payer MEDICARE, OTHER, SELFPAY ==
[2019-07-15 13:59] VITALS: BMI 39.6
--- NOTE | 2019-07-30 16:20 | RAD_ITS ---
STUDY: X-RAY - ABDOMEN/PELVIS REASON FOR EXAM: Male, 64 years old. Right-sided kidney stones TECHNIQUE: Single AP view of the abdomen / pelvis. COMPARISON: CT scan 06/25/2019, KUB 07/07/2019. FINDINGS: On the right there is an oblong 9 mm stone probably in the right renal pelvis, stable. Probable 9 mm lower pole stones, stable. On the left possible 7 mm stone in the area of the left UPJ, probably stable. No other definite renal stones. There is an unremarkable bowel gas pattern. There is no demonstrated free abdominal air. The visualized liver, spleen and kidneys are grossly normal in size and morphology. Normal soft tissue structures. Normal visualized osseous structures. Left hip arthroplasty. RAD/Abdomen Single View IMPRESSION: Probable stable right and left renal stones as described. Electronically Signed: Jesse Ledezma MD at 21:05 EDT , Service support ,
== END ==
PROVIDERS: Family Provider Family Medicine; PCP Family Medicine; Referring Provider Urology; Visit Provider Urology
DX: N20.0 Calculus of kidney (principal)
CPT/HCPCS: 74018

== ENCOUNTER 2019-08-05 12:47 | Day surgery (SDC) | payer MEDICARE, OTHER, SELFPAY ==
[2019-08-05 13:08] VITALS: BP 121/84; PULSE 79; RESP 20; TEMP 36.2; O2SAT 99; BMI 39.9
[2019-08-05] MEDS: Lactated Ringers 1,000 ML 100 ML IV (13:23)
[2019-08-05] MEDS: Cefazolin 2 GM in 0.9% Normal Saline 100 ML IV (15:12)
--- NOTE | 2019-08-05 16:05 | PCM.DC.URO ---
Discharge Diet: Light diet - advance as tolerated Discharge Activity: Return to Normal Activity Call your doctor if you observe: Fever of 101 or Higher Suture Line Care: Avoid Pulling/Pushing, Avoid Pinching/Bending Instructions: Ureteral Stents Allergies/Adverse Reactions: Allergies No Known Allergies Allergy (Verified 08/04/19 08:20) Medications to take at Discharge Temazepam [Restoril] 15 mg PO QHS 05/24/17 Aspirin [Aspirin, Baby] 81 mg PO QHS 06/09/17 gabapentin 600 mg tablet 300 mg PO QHS tab 01/06/18 bupropion HCl SR 150 mg tablet,12 hr sustained-release 150 mg PO BID 01/08/18 pantoprazole 40 mg tablet,delayed release 40 mg PO DAILY tab 01/08/18 nitroglycerin 0.4 mg sublingual tablet 0.4 mg SUBLINGUAL Q5M PRN #25 tab 01/15/18 ramipril 2.5 mg capsule 2.5 mg PO DAILY #90 cap 06/24/18 atorvastatin 40 mg tablet 40 mg PO DINNER #30 tab 12/30/18 isosorbide mononitrate ER 60 mg tablet,extended release 24 hr 60 mg PO BID #60 tab 02/23/19 ranolazine ER 1,000 mg tablet,extended release,12 hr 1,000 mg PO BID #180 tab 03/16/19 carvedilol 25 mg tablet 25 mg PO BID #180 tab 03/30/19 clopidogrel 75 mg tablet 75 mg PO DAILY #90 tab 04/06/19 furosemide 80 mg tablet 40 mg PO BID tab 04/16/19 niacin ER 1,000 mg tablet,extended release 24 hr 1,000 mg PO QHS #30 tab 06/03/19 potassium chloride ER 20 mEq tablet,extended release 40 meq PO QDAY #180 tab 07/21/19 Ciprofloxacin [Cipro] 500 mg PO BID #6 tab 08/05/19 Hydrocodone/Acetaminophen [[place] 5-325 Tablet] 1 ea PO Q4H PRN PRN 5 Days #14 tab 08/05/19 The following prescriptions were given: Ciprofloxacin [Cipro] 500 mg PO BID #6 tab Prescription Printed Hydrocodone/Acetaminophen [[place] 5-325 Tablet] 1 ea PO Q4H PRN PRN 5 Days #14 tab PRN Reason: Pain Prescription Printed Primary Care Physician: Speedy Boswell MD [Primary Care Provider] - Test Results: Test results from this visit will be discussed in further detail at your follow-up appointment, if applicable. Please Follow Up With: Ravi Holder MD When: please call to make an appointment.
--- NOTE | 2019-08-05 16:08 | PCM.OPRPT ---
Report of Operation Date of Procedure: 08/05/19 Pre-Operative Diagnosis: Right renal calculi, possible left renal calculi Post-Operative Diagnosis: The same, no stone on the left side. Surgery/Procedure Performed:: Cystoscopy left retrograde pyelogram interpretation of fluoroscopic images, right ureteroscopy laser lithotripsy of stone and stent placement Description of Surgical Findings:: 64-year-old male was taken back to the operating room he recently had his treatment stone on the right side with shockwave lithotripsy however the stone did not break so he is coming in today for a second stage procedure on the right side to treat the stone with laser lithotripsy. On the left side today on x-ray there is a questionable stones or can do retrograde pyelogram I do not think the calcification seen in the KUB, is a stone but will get ruled out with a retrograde pyelogram. He will need a stent on the right side afterwards. 64-year-old male taken back to the operating with smooth induction of anesthesia he was placed in dorsolithotomy position he did have an amputated lower left leg so we took extra care to pad the stump and put her in a stirrup with Gelfoam and pads to make sure that we injure the stump on his right side he did we did leave the compression sock on the stump. After placing the patient very carefully and dorsolithotomy position again pain extra close attention to his right stump we then prepped and draped the penis in usual sterile fashion. Had to dilate the meatus for a little slight meatal stricture. I then went in with the scope 21 [place] rigid ureteroscope and identified the left ureteral orifice cannulated with a wire and a Pollack catheter the retrograde pyelogram show contrast going up the left side with no stone in the left collecting system no hydronephrosis the calcification was outside the system. We then went to the right side cannulated the ureter on the right side advanced a wire up on the right side and then over the wire went in with a flexible ureteroscope was able to get into the distal ureter quite easily went up to the kidney quite easily pulled out the wire and then engage the stone that was in the midpole the right kidney used laser lithotripsy with a 270 ?m laser fiber and settings were 1 J and 15 Hz and laser the stone little tiny dust particles. After successfully lasering the stone into little tiny pieces and I put a wire through the ureteroscope back down the ureter and then advanced a stent up with the wire and then left the stent in the kidney from the kidney and bladder in good position drained the bladder and left stent in good position with the string on the stent for easy extraction and then patient anesthetic was reversed to take back to PACU in good condition. Type of Anesthesia:: General Drains: stent right side - Admit VTE Documentation VTE Present on Admission: No VTE Mechan Device Prophylaxis: SCD's
[2019-08-05 16:13] VITALS: BP 121/84; BP 123/75; PULSE 78; RESP 16; TEMP 36.4; O2SAT 94
[2019-08-05 16:15] VITALS: BP 121/84; BP 123/75; PULSE 78; RESP 16; O2SAT 94
[2019-08-05] MEDS: Ketorolac 15 MG/ML Vial IV (16:23)
[2019-08-05 16:30] VITALS: BP 121/84; BP 136/85; PULSE 84; RESP 16; O2SAT 93
[2019-08-05 16:46] VITALS: BP 115/70; BP 121/84; PULSE 84; RESP 18; TEMP 36.3; O2SAT 94
[2019-08-05] MEDS: Lactated Ringers 1,000 ML 75 ML IV (16:54)
[2019-08-05 17:15] VITALS: BP 121/84
== END 2019-08-05 17:52 | disposition home or self-care (01) ==
LOC: SDC 12:49 → AC 12:49
PROVIDERS: Family Provider Family Medicine; PCP Family Medicine; Referring Provider Urology; Visit Provider Urology
PROC: 0TJ98ZZ Inspection of Ureter, Via Natural or Artificial Opening Endoscopic (ICD-10-PCS; CPT 52352; principal; 2019-08-05 14:40)
DX: N20.0 Calculus of kidney (principal); K21.9 Gastro-esophageal reflux disease without esophagitis; E78.00 Pure hypercholesterolemia, unspecified; I10 Essential (primary) hypertension; I25.2 Old myocardial infarction; Z87.891 Personal history of nicotine dependence; Z87.442 Personal history of urinary calculi; Z95.810 Presence of automatic (implantable) cardiac defibrillator; Z79.82 Long term (current) use of aspirin
CPT/HCPCS: 52356; 76000; J7120; C1874; C1876; J2405

== ENCOUNTER → 2019-09-22 14:46 | Outpatient (CLI) | payer MEDICARE, OTHER, SELFPAY ==
[2019-09-02 14:00] VITALS: BMI 37.0
[2019-09-22 16:36] LABS: Anion Gap 6 (5-15); BUN 10 mg/dL (7-18); BUN/Creat Ratio 9.6 RATIO (10-20); Calcium,Total 9.2 mg/dL (8.5-10.1); Chloride 110 mmol/L (98-107); Creatinine, Serum 1.04 mg/dL (0.70-1.30); EST Glomerular Filtration Rate 76 mL/min (>60); Est Glom Filt Rate - Afr Amer 92 mL/min (>60); Glucose 105 mg/dL (74-106); Potassium 4.1 mmol/L (3.5-5.1); Sodium Level 141 mmol/L (136-145)
== END ==
PROVIDERS: Family Provider Family Medicine; PCP Family Medicine; Referring Provider Urology; Visit Provider Urology
DX: N20.0 Calculus of kidney (principal)
CPT/HCPCS: 36415; 80048

== ENCOUNTER 2019-12-26 22:30 | Observation (INO) | payer MEDICARE, OTHER, SELFPAY ==
[2019-09-02 14:00] VITALS: BMI 37.0
[2019-12-26 22:31] VITALS: BP 127/74; PULSE 68; RESP 12; TEMP 36.2; O2SAT 100; BMI 41.1
[2019-12-26 22:37] VITALS: PULSE 68; RESP 14; O2SAT 100
--- NOTE | 2019-12-26 22:43 | EKG12_ITS ---
Test Reason : CP Blood Pressure : / mmHG Vent. Rate : 071 BPM Atrial Rate : 071 BPM P-R Int : 188 ms QRS Dur : 072 ms QT Int : 340 ms P-R-T Axes : 059 -61 027 degrees QTc Int : 369 ms Normal sinus rhythm Left axis deviation Septal infarct (cited on or before 08-JUN-2017) Possible Lateral infarct (cited on or before 08-JUN-2017) Abnormal ECG Confirmed by GRAYSON DORANTES, SCOOTER ([id number]), editor greeting card ABBIE SANDS ([id number]) on 12/28/2019 12:29:58 PM Referred By: Speedy Boswell Confirmed By:SCOOTER GALICIA MD
--- NOTE | 2019-12-26 22:43 | RAD_ITS ---
STUDY: X-RAY CHEST REASON FOR EXAM: Male, 64 years old patient with intermittent chest pain. TECHNIQUE: Three AP portable views of the chest. COMPARISON: July 29, 2017. FINDINGS: The patient has had a sternotomy. Patient has a left-sided intracardiac pacemaker. Cardiac monitoring leads are present. The lungs are clear and hyperexpanded. There is no demonstrated pleural abnormality. There is mild cardiac enlargement. Normal mediastinum and keke. Normal visualized pulmonary arteries. There is atherosclerotic tortuosity of the aortic arch and descending thoracic aorta. There are diffuse degenerative changes of the visualized thoracic spine. There are degenerative changes of both shoulders. There is no demonstrated abnormality of the visualized soft tissue structures of the upper abdomen. RAD/Chest 1 View (Portable) IMPRESSION: Postoperative changes and cardiomegaly without evidence of acute cardiopulmonary disease. Electronically Signed: Peggy Biswas MD at 23:40 EST , Service support ,
--- NOTE | 2019-12-26 22:44 | ED.DCSUM_ITS ---
- ER Visit Summary Date of Service: 12/26/19 Chief Complaint: Chest pain History of Present Illness: The patient is a 64 M who presents with chest pain that began today. Patient states pain is intermittent. Patient states the pain lasts approximately 2 minutes. Patient states the pain starts in his right chest and radiates across his chest. Patient states this comes on approximate every 5 to 10 minutes. Patient states nothing makes it better or worse. Patient admits to some shortness of breath and some mild lightheadedness with this. Patient denies any heartburn or reflux. Patient admits to nausea but denies any vomiting. Patient does have a history of coronary artery disease but states this is different than the pain he had when he had his OR. Physical Examination: Vital signs are stable. Patient is afebrile. Patient is in no acute distress. Oral mucosa is pink and moist. Neck is supple. Trachea is midline. There is no JVD noted. Heart was regular rate and rhythm. Lungs are clear and equal bilaterally. Abdomen is soft. Bowel sounds are normal. There is no tenderness. There is no rebound or guarding noted. Skin is warm dry. Cranial nerves II through XII are intact. There are no focal motor or sensory deficits noted. Extremities are intact except for a right rniho-qkd-axjp amputation. There is no calf tenderness or edema on the left. Test Results: EKG showed normal sinus rhythm with a rate of 71. There is an old septal infarct. There is a left anterior fascicular block. This was unchanged compared to previous EKG dated 06/25/2019. CBC, basic metabolic profile, troponin were obtained and were within normal limits. Portable chest x-ray was obtained. There is no acute cardiopulmonary process. This was interpreted by the radiologist and reviewed by myself. Emergency Department Course and Treatment: Patient was given aspirin. Patient has a THOMAS risk score of 3 and a HEART score of 5. I recommended admission to the hospital and the patient is agreeable with this. Patient's last stress test was approximately 1 year ago and was normal. Case was discussed with the hospitalist. Patient will be admitted to the PCU for observation. Disposition: Admit for observation Impression: Chest pain This note was generated with [employer] dictation software. It may contain incorrect words, spelling, and punctuation that were not noted in review of the chart prior to signing ED Disposition - Plan for ED Patient: Disposition: Acute Care Hospital [facility] Diagnosis: Chest pain Referrals: Speedy Boswell MD [Primary Care Provider] -
[2019-12-26 22:57] LABS: Absolute Lymphocyte Count 1.31 X10^3/uL (0.83-4.51); Absolute Neutrophil Count 3.2 X10^3/uL (2.0-7.7); Basophil# 0.04 X10^3/uL; Basophil% 0.7 % (0-1); Eosinophil# 0.18 X10^3/uL; Eosinophils% 3.3 % (0-5); Hematocrit 42.9 % (40-54); Hemoglobin 14.3 g/dL (13.0-16.5); Lymphocyte # 1.31 X10^3/ul (4.0); Lymphocyte % 24.3 % (19-41); Mean Corp Hgb Conc 33.3 g/dL (32-36); Mean Corpuscular Hgb 29.4 pg (27.0-32.0); Mean Corpuscular Volume 88.3 fL (80-94); Mean Platelet Vol. 9.6 fl (6.2-12.0); Monocyte% 11.1 % (0-10); NRBC Flagged by Analyzer 0 % (0-5); Neutrophil # 3.24 X10^3/uL (2.7-7.7); Neutrophil % 60.2 % (47-70); Platelet Count 193 K/mm3 (150-450); RBC Distribution Width CV 12.9 % (11.6-14.6); RBC Distribution Width SD 41.5 fl (35.1-43.9); Red Blood Count 4.86 M/mm3 (4.6-6.2); White Blood Count 5.4 K/mm3 (4.4-11.0)
[2019-12-26] MEDS: Aspirin 81 MG TAB.CHEW 324 MG PO (23:07)
[2019-12-26 23:21] LABS: Anion Gap 4 (5-15); BUN 11 mg/dL (7-18); BUN/Creat Ratio 8.9 RATIO (10-20); Calcium,Total 9.7 mg/dL (8.5-10.1); Chloride 108 mmol/L (98-107); Creatinine, Serum 1.23 mg/dL (0.70-1.30); EST Glomerular Filtration Rate 63 mL/min (>60); Est Glom Filt Rate - Afr Amer 76 mL/min (>60); Estimated Creatinine Clearance 64.62 ml/min; Glucose 90 mg/dL (74-106); Potassium 4.2 mmol/L (3.5-5.1); Sodium Level 137 mmol/L (136-145)
[2019-12-26 23:44] VITALS: O2SAT 98
--- NOTE | 2019-12-26 23:58 | HP.PCM_ITS ---
Problem List (1) Chest pain Status: Acute (2) Mixed hyperlipidemia Status: Chronic (3) Essential hypertension Status: Chronic (4) Debility Status: Chronic (5) Obesity (BMI 30-39.9) Status: Chronic (6) Automatic implantable cardioverter-defibrillator in situ Status: Chronic (7) Chronic systolic congestive heart failure Status: Chronic (8) Presence of stent in coronary artery Status: Chronic Comment: PTCA/stent to prox LAD 02/02/05; PTCA/stent instent restenosis of prox LAD 10/15/13 (9) Atherosclerotic heart disease of [place] coronary artery without angina pectoris Status: Chronic Qualifiers: [place] vs. transplanted heart: [place] heart Qualified Code(s): I25.10 - Atherosclerotic heart disease of [place] coronary artery without angina pectoris Comment: CABG x2- PARK to LAD, SARIAH to OM 06/01/05; PTCA/stent to prox LAD 02/02/05; PTCA/stent instent restenosis of prox LAD 10/15/13 (10) Shortness of breath Status: Chronic (11) Postsurgical aortocoronary bypass status Status: Chronic Comment: CABG x2- PARK to LAD, SARIAH to OM 06/01/05 (12) Ischemic cardiomyopathy Status: Chronic (13) ICD (implantable cardioverter-defibrillator) in place Status: Chronic Comment: ICD Implant 2009 History of Present Illness Date of Admission: 12/27/19 Chief Complaint: chest pain The patient is a 64 year old M with a significant history of ischemic cardiomyopathy status post CABG and stent; and ICD; hypertension; and jgrjc-ngc-jhrx amputation who presented to emergency department with episodic chest pain in a straight line under his bilateral breast. He described the pain as dull. He denies any aggravating or ameliorating factors. Associated with symptoms is nausea without vomiting. Also he had shortness of breath with the chest pain. Patient was given 4 tablets of aspirin at emergency department. Past Medical History Past Medical History (Chronic Problems): Chronic Problems (Last Reviewed 12/27/19 @ 00:53 by Levar Hahn MD) Mixed hyperlipidemia (Chronic) Essential hypertension (Chronic) Debility (Chronic) Obesity (BMI 30-39.9) (Chronic) Automatic implantable cardioverter-defibrillator in situ (Chronic) Chronic systolic congestive heart failure (Chronic) Presence of stent in coronary artery (Chronic ~10/15/13) PTCA/stent to prox LAD 02/02/05; PTCA/stent instent restenosis of prox LAD 10/15/13 Atherosclerotic heart disease of [place] coronary artery without angina pectoris (Chronic) CABG x2- PARK to LAD, SARIAH to OM 06/01/05; PTCA/stent to prox LAD 02/02/05; PTCA/stent instent restenosis of prox LAD 10/15/13 Shortness of breath (Chronic) Postsurgical aortocoronary bypass status (Chronic ~06/01/05) CABG x2- PARK to LAD, SARIAH to OM 06/01/05 Ischemic cardiomyopathy (Chronic) ICD (implantable cardioverter-defibrillator) in place (Chronic ~08/17/10) ICD Implant 2009 Medical History: Medical History (Last Reviewed 12/27/19 @ 00:57 by Levar Hahn MD) Mixed hyperlipidemia (Chronic) E78.2 Essential hypertension (Chronic) I10 Debility (Chronic) R53.81 Obesity (BMI 30-39.9) (Chronic) E66.9 Chronic systolic congestive heart failure (Chronic) I50.22 Atherosclerotic heart disease of [place] coronary artery without angina pectoris (Chronic) I25.10 CABG x2- PARK to LAD, SARIAH to OM 06/01/05; PTCA/stent to prox LAD 02/02/05; PTCA/stent instent restenosis of prox LAD 10/15/13 Shortness of breath (Chronic) R06.02 Ischemic cardiomyopathy (Chronic) I25.5 ICD (implantable cardioverter-defibrillator) in place (Chronic) Onset Date: ~08/17/10 Z95.810 ICD Implant 2009 GERD (gastroesophageal reflux disease) K21.9 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 on left side N20.0 Family history of CVA Z82.3 History of tobacco abuse Z87.891 Above knee amputation of right lower extremity Z89.611 Lymphedema of right lower extremity (Resolved) I89.0 Surgical wound dehiscence T81.31XA Acute lymphangitis of right lower extremity (Inactive) L03.125 Atherosclerosis of coronary artery bypass graft without angina pectoris (Inactive) I25.810 CAD (coronary artery disease) (Inactive) I25.10 Chronic Systolic CHF - EF 45% (Inactive) Effects of radiation (Inactive) T66.XXXA late effect radiation right lower extremity GERD (gastroesophageal reflux disease) (Inactive) K21.9 Gastroenteritis (Inactive) K52.9 History of 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 (Inactive) 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) Z79.899 Lymphedema of Right Leg (Inactive) Morbid obesity with BMI of 40.0-44.9, adult (Inactive) E66.01, Z68.41 SIRS (systemic inflammatory response syndrome) (Inactive) R65.10 Allergies No Known Allergies Allergy (Verified 09/02/19 14:01) Home Medications: Ambulatory Orders Medication Instructions Recorded Temazepam [Restoril] 15 mg PO QHS 05/24/17 Aspirin [Aspirin, Baby] 81 mg PO QHS 06/09/17 gabapentin 600 mg tablet 300 mg PO QHS tab 01/06/18 bupropion HCl 150 mg tablet,12 hr 150 mg PO BID 01/08/18 sustained-release pantoprazole 40 mg tablet,delayed 40 mg PO DAILY tab 01/08/18 release atorvastatin 40 mg tablet 40 mg PO DINNER #30 tab 12/30/18 isosorbide mononitrate 60 mg 60 mg PO BID #60 tab 02/23/19 tablet,extended release 24 hr ranolazine 1,000 mg 1,000 mg PO BID #180 tab 03/16/19 tablet,extended release,12 hr carvedilol 25 mg tablet 25 mg PO BID #180 tab 03/30/19 clopidogrel 75 mg tablet 75 mg PO DAILY #90 tab 04/06/19 niacin 1,000 mg tablet,extended 1,000 mg PO QHS #30 tab 06/03/19 release 24 hr potassium chloride 20 mEq 40 meq PO QDAY #180 tab 07/21/19 tablet,extended release furosemide 40 mg tablet 40 mg PO BID #180 tab 08/20/19 ramipril 2.5 mg capsule 2.5 mg PO DAILY #90 cap 08/20/19 Loratadine 10 mg PO BID 12/26/19 Surgical History: Surgical History (Last Reviewed 12/27/19 @ 00:54 by Levar Hahn MD) Presence of stent in coronary artery (Chronic) Onset Date: ~10/15/13 Z95.5 PTCA/stent to prox LAD 02/02/05; PTCA/stent instent restenosis of prox LAD 10/15/13 Postsurgical aortocoronary bypass status (Chronic) Onset Date: ~06/01/05 Z95.1 CABG x2- PARK to LAD, SARIAH to OM 06/01/05 Status post right rotator cuff repair Z98.890 Surgical History: coronary bypass surgery - CABG x 2., total hip arthroplasty, tonsillectomy, - - AICD; 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 More recently, in January 2019, patient underwent right above-knee amputation, and subsequent revision. Patient is undergone bilateral shoulder surgery. Patient also has previously undergone coronary stenting. Psychiatric History: No pertinent psych hx Lives: With Family Smoking Status: Former smoker - *Family History Maternal Family History: Family History (Last Reviewed 12/27/19 @ 00:54 by Levar Hahn MD) Mother CAD (coronary artery disease) Father CVA (cerebral vascular accident) Myocardial infarction Brother CAD (coronary artery disease) Hx of CABG Brother CAD (coronary artery disease) Hx of CABG Other Family history of CVA History Items: Heart Disease, Stroke Paternal Family History: Family History (Last Reviewed 12/27/19 @ 00:54 by Levar Hahn MD) Mother CAD (coronary artery disease) Father CVA (cerebral vascular accident) Myocardial infarction Brother CAD (coronary artery disease) Hx of CABG Brother CAD (coronary artery disease) Hx of CABG Other Family history of CVA History Items: Cancer - Father with history of liver CA. Review of Systems Constitutional: Denies: Chills, Fever, Weight Change HEENT: Denies: Head Aches, Sinus Congestion, Sinus Drainage Cardiovascular: Reports: Chest Pain. Denies: Palpitations Respiratory: Reports: Shortness of Breath. Denies: Cough, Shortness of breath at rest, Sputum production Gastrointestinal: Reports: Nausea. Denies: Abdominal Pain, Vomiting Genitourinary: Denies: Dysuria Musculoskeletal: Reports: - - Right hispt-ngx-ablv amputation. Denies: Joint Pain, Joint Tenderness Skin: Denies: Rash, Wounds Neurological: Denies: Numbness, Tingling, Focal weakness Psychiatric: Denies: Anxiety, Depression, Homicidal Ideations, Suicidal Ideations Hematologic/ Lymphatic: Denies: Easy Bruising, Easy Bleeding VTE Information - Inpt Only VTE Present on Admission: No VTE Mechan Device Prophylaxis: None VTE Pharm Prophylaxis ordered?: Yes Patient Problems: Active and Suspected Problems (Last Reviewed 12/27/19 @ 00:53 by Levar Hahn MD) Chest pain (Acute) - Physical Exam Vitals/I&O's: Vital Signs Temp Pulse Resp BP Pulse Ox 97.2 F L 68 14 127/74 H 98 12/26/19 22:31 12/26/19 22:37 12/26/19 22:37 12/26/19 22:31 12/26/19 23:44 Oxygen Delivery Method Room Air Weight: 133.81 kg Body Mass Index (BMI) 41.1 General: Alert, Oriented x3, Cooperative HEENT: Atraumatic, PERRLA, EOMI, Normocephalic Neck: Supple, No JVD, Negative Carotid Bruits Lungs: Clear to auscultation, Normal air movement Cardiovascular: Regular rate, No murmurs Abdomen: Bowel Sounds Present, Soft, Non Tender Extremities: No edema, Capillary Refill Less than 3 Seconds, - - Right lower extremity with prosthesis Skin: No rashes, No breakdown Musculoskeletal: No Tenderness to Palpation of Joints or Extremities Neurological: Cranial nerves II-XII grossly intact Psych/Mental Status: Normal Affect, Appropriate Laboratory Results 12/26/19 22:50: WBC 5.4, RBC 4.86, Hgb 14.3, Hct 42.9, MCV 88.3, MCH 29.4, MCHC 33.3, RDW Std Deviation 41.5, RDW Coeff of Ang 12.9, Plt Count 193, MPV 9.6, Immature Gran % (Auto) 0.400, Neut % (Auto) 60.2, Lymph % (Auto) 24.3, Ceiba % (Auto) 11.1 H, Eos % (Auto) 3.3, Baso % (Auto) 0.7, Absolute Neuts (auto) 3.2, Absolute Lymphs (auto) 1.31, Nucleated RBC % 0 12/26/19 22:50: Sodium 137, Potassium 4.2, Chloride 108 H, Carbon Dioxide 25.0, Anion Gap 4 L, BUN 11, Creatinine 1.23, Estim Creat Clear Calc 64.62, Est GFR (MDRD) Af Amer 76, Est GFR (MDRD) Non-Af 63, BUN/Creatinine Ratio 8.9 L, Glucose 90, Calcium 9.7, Troponin I < 0.015 Assessment/Plan All Active Problems (Last Reviewed 12/27/19 @ 00:53 by Levar Hahn MD) Chest pain (Acute) Cellulitis of right lower extremity (Resolved) Lymphedema of right lower extremity (Resolved) The patient is a 64 year old M with a significant history of ischemic cardiomyopathy status post CABG and stent and ICD; hypertension; and hpinv-inq-laxw amputation who presented to emergency department with episodic chest pain that goes under his bilateral breast. Chest pain Place on a monitored bed at PCU CXR showed postoperative changes and cardiomegaly without evidence of acute cardiopulmonary disease. Chest x-ray was independently reviewed. I agree with radiologist interpretation. EKG independently reviewed confirms Q waves in inferior and septal leads; unchanged from previous. Continue ASA 81 mg p.o. nightly Home imdur continued Morphine as needed for pain We will check lipid panel. Statin: Lipitor 40 mg p.o. continued Anti-P2Y12 Receptor antibody: Plavix continued Serial cardiac enzymes Stat EKG as needed for chest pain Chemical stress test stress test if cardiac enzymes are negative. Of note patient has right gzhdh-xyi-ibko amputation and cannot do treadmill stress test. Beta-yamila; BURT inhibitor and ranolazine continued Ischemic cardiomyopathy Echocardiogram on 12/23/2018 showed an ejection fraction of 35%. ICD in place. Beta-yamila; and BURT inhibitor continued. Lasix continued. Hypertension On presentation blood pressure was not within goal Beta-yamila; BURT inhibitor; Imdur and Lasix continued. Trend blood pressure and adjust blood pressure medications. DVT prophylaxis Subcutaneous Lovenox Code Visit OBSV E&M: [id number] Initial observation care L3
[2019-12-27] VITALS (11 sets, daily range): BP systolic 97–123; BP diastolic 56–80; PULSE 63–76; RESP 15–18; TEMP 36.2–36.7; O2SAT 93–99; BMI 38.7; BMI 38.8
--- NOTE | 2019-12-27 01:29 | EKG12_ITS ---
Test Reason : CP ADMIT Blood Pressure : / mmHG Vent. Rate : 071 BPM Atrial Rate : 071 BPM P-R Int : 190 ms QRS Dur : 104 ms QT Int : 380 ms P-R-T Axes : 069 -53 050 degrees QTc Int : 412 ms Normal sinus rhythm Left anterior fascicular block Anteroseptal infarct , age undetermined Abnormal ECG When compared with ECG of 26-DEC-2019 22:38, MANUAL COMPARISON REQUIRED, DATA IS UNCONFIRMED Confirmed by GRAYSON DORANTES, SCOOTER ([id number]), rewrite editor ABBIE SANDS ([id number]) on 12/29/2019 12:29:16 PM Referred By: Speedy Boswell Confirmed By:SCOOTER GALICIA MD
[2019-12-27 05:31] LABS: Bedside Glucose 111 mg/dL (70-110)
[2019-12-27 06:47] LABS: Absolute Lymphocyte Count 1.24 X10^3/uL (0.83-4.51); Absolute Neutrophil Count 2.9 X10^3/uL (2.0-7.7); Basophil# 0.03 X10^3/uL; Basophil% 0.6 % (0-1); Eosinophil# 0.22 X10^3/uL; Eosinophils% 4.5 % (0-5); Hematocrit 41.4 % (40-54); Hemoglobin 13.5 g/dL (13.0-16.5); Lymphocyte # 1.24 X10^3/ul (4.0); Lymphocyte % 25.1 % (19-41); Mean Corp Hgb Conc 32.6 g/dL (32-36); Mean Corpuscular Hgb 28.7 pg (27.0-32.0); Mean Corpuscular Volume 88.1 fL (80-94); Mean Platelet Vol. 9.8 fl (6.2-12.0); Monocyte# 0.57 X10^3/uL; Monocyte% 11.5 % (0-10); NRBC Flagged by Analyzer 0 % (0-5); Neutrophil # 2.87 X10^3/uL (2.7-7.7); Neutrophil % 58.1 % (47-70); Platelet Count 203 K/mm3 (150-450); RBC Distribution Width CV 13.1 % (11.6-14.6); RBC Distribution Width SD 42.4 fl (35.1-43.9); White Blood Count 4.9 K/mm3 (4.4-11.0)
[2019-12-27 06:59] LABS: Anion Gap 6 (5-15); BUN 12 mg/dL (7-18); BUN/Creat Ratio 10.2 RATIO (10-20); Calcium,Total 9.2 mg/dL (8.5-10.1); Chloride 109 mmol/L (98-107); Cholesterol 181 mg/dL (200); Creatinine, Serum 1.18 mg/dL (0.70-1.30); EST Glomerular Filtration Rate 66 mL/min (>60); Est Glom Filt Rate - Afr Amer 80 mL/min (>60); Estimated Creatinine Clearance 67.36 ml/min; Glucose 117 mg/dL (74-106); High Density Lipoprotein 27 mg/dL; Potassium 3.6 mmol/L (3.5-5.1); Sodium Level 140 mmol/L (136-145); Triglycerides 179 mg/dL; Very Low Density Lipoprotein 36 mg/dL (5-40)
[2019-12-27] MEDS: Carvedilol 25 MG Tablet PO ×2 (10:10→21:37)
[2019-12-27] MEDS: Loratadine 10 MG Tablet PO (10:10)
[2019-12-27] MEDS: Clopidogrel Bisulfate 75 MG Tablet PO (10:10)
[2019-12-27] MEDS: Ranolazine 500 MG Tablet 1000 MG PO ×2 (10:10→21:37)
[2019-12-27] MEDS: Pantoprazole Sodium 40 MG Tablet PO (10:10)
[2019-12-27] MEDS: Ramipril 2.5 MG Capsule PO (10:10)
[2019-12-27] MEDS: buPROPion (SR) 150 MG Tablet.SA PO ×2 (10:10→21:37)
[2019-12-27] MEDS: Furosemide 40 MG Tablet PO ×2 (10:10→19:21)
[2019-12-27] MEDS: Isosorbide Mononitrate 60 MG Tablet PO ×2 (10:10→21:37)
[2019-12-27] MEDS: Enoxaparin 40 MG/0.4 ML Syringe SC (10:11)
--- NOTE | 2019-12-27 11:10 | PCM.PN.HOSP ---
Patient Problems: Active and Suspected Problems (Last Reviewed 12/27/19 @ 00:57 by Levar Hahn MD) Chest pain (Acute) Reason for Visit: Follow-up on chest pain Subjective: Patient seen and examined. Denies chest pain, palpitations, or progressive shortness of breath. Objective: Physical exam: General: Alert, Oriented x3, Cooperative, morbidly obese HEENT: Atraumatic, PERRLA, EOMI, Normocephalic Neck: Supple, No JVD, Negative Carotid Bruits Lungs: Clear to auscultation, Normal air movement Cardiovascular: Regular rate, No murmurs Abdomen: Bowel Sounds Present, Soft, Non Tender Extremities: No edema, Capillary Refill Less than 3 Seconds, s/p right BKA Skin: No rashes, No breakdown Musculoskeletal: No Tenderness to Palpation of Joints or Extremities Neurological: Cranial nerves II-XII grossly intact Psych/Mental Status: Normal Affect, Appropriate Vitals/I&O's: Vital Signs Temp Pulse Resp BP Pulse Ox 97.2 F L 64 17 121/80 H 99 12/27/19 09:28 12/27/19 09:28 12/27/19 09:28 12/27/19 09:28 12/27/19 09:28 Oxygen Delivery Method Room Air Weight: 126.1 kg Body Mass Index (BMI) 38.7 Intake and Output for Last 24 Hours 12/25/19 12/26/19 12/27/19 23:59 23:59 23:59 Intake Total 200 / 200 Balance 200 / 200 Laboratory Results 12/26/19 22:50: WBC 5.4, RBC 4.86, Hgb 14.3, Hct 42.9, MCV 88.3, MCH 29.4, MCHC 33.3, RDW Std Deviation 41.5, RDW Coeff of Ang 12.9, Plt Count 193, MPV 9.6, Immature Gran % (Auto) 0.400, Neut % (Auto) 60.2, Lymph % (Auto) 24.3, [place] % (Auto) 11.1 H, Eos % (Auto) 3.3, Baso % (Auto) 0.7, Absolute Neuts (auto) 3.2, Absolute Lymphs (auto) 1.31, Nucleated RBC % 0 12/26/19 22:50: Sodium 137, Potassium 4.2, Chloride 108 H, Carbon Dioxide 25.0, Anion Gap 4 L, BUN 11, Creatinine 1.23, Estim Creat Clear Calc 64.62, Est GFR (MDRD) Af Amer 76, Est GFR (MDRD) Non-Af 63, BUN/Creatinine Ratio 8.9 L, Glucose 90, Calcium 9.7, Troponin I < 0.015 12/27/19 02:05: Troponin I < 0.015 12/27/19 04:55: WBC 4.9, RBC 4.70, Hgb 13.5, Hct 41.4, MCV 88.1, MCH 28.7, MCHC 32.6, RDW Std Deviation 42.4, RDW Coeff of Ang 13.1, Plt Count 203, MPV 9.8, Immature Gran % (Auto) 0.200, Neut % (Auto) 58.1, Lymph % (Auto) 25.1, [place] % (Auto) 11.5 H, Eos % (Auto) 4.5, Baso % (Auto) 0.6, Absolute Neuts (auto) 2.9, Absolute Lymphs (auto) 1.24, Nucleated RBC % 0 12/27/19 04:55: Sodium 140, Potassium 3.6, Chloride 109 H, Carbon Dioxide 25.0, Anion Gap 6, BUN 12, Creatinine 1.18, Estim Creat Clear Calc 67.36, Est GFR (MDRD) Af Amer 80, Est GFR (MDRD) Non-Af 66, BUN/Creatinine Ratio 10.2, Glucose 117 H, Calcium 9.2, Triglycerides 179, Cholesterol 181, LDL Cholesterol 118, VLDL Cholesterol 36, HDL Cholesterol 27 L 12/27/19 04:55: Troponin I < 0.015 12/27/19 05:24: POC Glucose 111 H Current Medications Acetaminophen (Tylenol) 650 mg PO Q6H PRN PRN PRN Reason: Pain Score 1-3/Temp > 100.7 F Aspirin (Aspirin, Baby) 81 mg PO QHS [facility] Atorvastatin Calcium (Lipitor) 40 mg PO DINNER [facility] Bupropion HCl (Wellbutrin Sr (150mg Tablets)) 150 mg PO BID [facility] Last Admin: 12/27/19 10:10 Dose: 150 mg Documented by: Carvedilol (Coreg) 25 mg PO BID [facility] Last Admin: 12/27/19 10:10 Dose: 25 mg Documented by: Clopidogrel Bisulfate (Plavix) 75 mg PO DAILY [facility] Last Admin: 12/27/19 10:10 Dose: 75 mg Documented by: Dextrose (D50w Syringe) 0 gm IV X1 PRN; Protocol PRN Reason: Hypoglycemia Enoxaparin Sodium (Lovenox) 40 mg SC DAILY [facility] Last Admin: 12/27/19 10:11 Dose: 40 mg Documented by: Furosemide (Lasix) 40 mg PO 1000,1800 [facility] Last Admin: 12/27/19 10:10 Dose: 40 mg Documented by: Gabapentin (Neurontin) 300 mg PO QHS [facility] Glucagon () 1 mg IM .X1 PRN PRN Reason: Hypoglycemia Isosorbide Mononitrate (Imdur) 60 mg PO BID [facility] Last Admin: 12/27/19 10:10 Dose: 60 mg Documented by: Loratadine (Claritin) 10 mg PO DAILY [facility] Last Admin: 12/27/19 10:10 Dose: 10 mg Documented by: Magnesium Hydroxide (Milk Of Magnesia) 30 ml PO DAILY PRN PRN PRN Reason: Constipation Morphine Sulfate () 2 mg IV Q3H PRN PRN PRN Reason: chest pain 5-10/10 Niacin (Niaspan) 1,000 mg PO QHS [facility] Ondansetron HCl (Zofran) 4 mg IV Q8H PRN PRN PRN Reason: NAUSEA/VOMITING Pantoprazole Sodium (Protonix) 40 mg PO DAILY [facility] Last Admin: 12/27/19 10:10 Dose: 40 mg Documented by: Potassium Chloride (K-Dur) 40 meq PO DAILYCM [facility] Last Admin: 12/27/19 10:09 Dose: 40 meq Documented by: Ramipril (Altace) 2.5 mg PO DAILY [facility] Last Admin: 12/27/19 10:10 Dose: 2.5 mg Documented by: Ranolazine (Ranexa) 1,000 mg PO BID [facility] Last Admin: 12/27/19 10:10 Dose: 1,000 mg Documented by: Sodium Chloride () 10 - 40 ml IV UD PRN PRN Reason: SALINE FLUSH Temazepam (Restoril) 15 mg PO QHS [facility] STROKE Vital Signs/Narrative: Vital Signs Temp Pulse Resp BP Pulse Ox 12/27/19 09:28 97.2 F L 64 17 121/80 H 99 12/27/19 08:10 93 01/26/20 07:29 63 Medical Necessity - Tobacco Use Smoking Status: Former smoker Assessment/Plan All Active Problems (Last Reviewed 12/27/19 @ 00:57 by Levar Hahn MD) Chest pain (Acute) Cellulitis of right lower extremity (Resolved) Lymphedema of right lower extremity (Resolved) 64 y/o with PMHx of CAD s/p CABG, stent, s/p ICD, hypertension who comes in with chest pain. 1. Chest pain, atypical, h/o CAD s/p CABG, stent EKG shows no acute ST-T segments, troponins are negative Continue on aspirin, Imdur, statin, plavix, Coreg, Ramipril Stress test in am 2. Chronic heart failure with reduced EF, EF 35%, s/p ICD Continue on Lasix BID 3. Hypertension, controlled, continue home meds 4. PAD s/p Right BKA 5. DVT PPx- Lovenox SC Code Visit Inpatient E&M: 70325 Subs Hosp L2
[2019-12-27] MEDS: Atorvastatin Calcium 40 MG Tablet PO (17:58)
[2019-12-27] MEDS: 0.9% Saline Lock 10 ML Syringe IV (21:36)
[2019-12-27] MEDS: Temazepam 15 MG Capsule PO (21:37)
[2019-12-27] MEDS: Aspirin 81 MG TAB.CHEW PO (21:37)
[2019-12-27] MEDS: Gabapentin 300 MG Capsule PO (21:37)
[2019-12-28] VITALS (9 sets, daily range): BP systolic 93–109; BP diastolic 47–71; PULSE 60–75; RESP 16–18; TEMP 36.4–36.6; O2SAT 94–97
[2019-12-28] MEDS: Clopidogrel Bisulfate 75 MG Tablet PO (05:19)
--- NOTE | 2019-12-28 05:35 | EKG12_ITS ---
Test Reason : AM Blood Pressure : / mmHG Vent. Rate : 065 BPM Atrial Rate : 065 BPM P-R Int : 190 ms QRS Dur : 106 ms QT Int : 398 ms P-R-T Axes : 060 -54 035 degrees QTc Int : 413 ms Normal sinus rhythm Left anterior fascicular block Anteroseptal infarct , age undetermined Abnormal ECG When compared with ECG of 27-DEC-2019 04:02, MANUAL COMPARISON REQUIRED, DATA IS UNCONFIRMED Confirmed by CAROLE DORANTES, SARAH ([id number]), book or script editor ARMINDA BRIONES ([id number]) on 01/11/2020 1:16:10 PM Referred By: Speedy Boswell Confirmed By:GEOFFREY LAM MD
[2019-12-28] MEDS: Carvedilol 25 MG Tablet PO (10:31)
[2019-12-28] MEDS: Ranolazine 500 MG Tablet 1000 MG PO (10:31)
[2019-12-28] MEDS: Isosorbide Mononitrate 60 MG Tablet PO (10:31)
[2019-12-28] MEDS: Ramipril 2.5 MG Capsule PO (10:31)
[2019-12-28] MEDS: Furosemide 40 MG Tablet PO (10:32)
[2019-12-28] MEDS: buPROPion (SR) 150 MG Tablet.SA PO (10:32)
[2019-12-28] MEDS: Pantoprazole Sodium 40 MG Tablet PO (10:32)
[2019-12-28] MEDS: Loratadine 10 MG Tablet PO (10:32)
--- NOTE | 2019-12-28 12:56 | PCM.DC ---
- Discharge Diagnoses Current Active Problems: Current Active and Chronic Problems (Last Reviewed 12/27/19 @ 00:57 by Levar Hahn MD) 1. Chest pain, unremarkable cardiac stress testing, unremarkable cardiac enzymes, unclear specific etiology, suspected noncardiac 2. CAD status post CABG 3. Ischemic cardiomyopathy status post AICD placement 4. Chronic systolic CHF, compensated 5. Hypertension 6. Hyperlipidemia 7. Obesity 8. Former tobacco use 9. Obstructive calculi status post prior ureteral stent placements You will use the following diet at home:: Cardiac May resume sexual activity in: No Restrictions Weight Bearing Status: Weight bearing as tolerated Call your doctor if you observe: Fever of 101 or Higher, Inability to urinate, Inability to have a bowel movement, Shortness of breath, Dizziness, Fainting spells, Chest pain, Uncontrolled pain Instructions: CHEST PAIN, Uncertain Cause, CHEST PAIN, NonCardiac Additional Instructions: The chest pain you experienced is not from your heart. The stress test is negative and your heart squeezed normally. The monitoring and evaluation advisor you wore showed no problem with the rhythm of your heart. Additionally, the cardiac enzyme series performed remained normal. Sometimes chest pain can come from a problem with the muscles or skeleton and/or associated with straining or doing some strenuous activity you do not normally perform. Generally Aleve or Motrin will help allieviate this discomfort if these medications are appropriate for you to take. Chest pain can also be associated with anxiety and with this you frequently have racing heart, trouble sleeping and irritability. It can also come from gastroesophageal reflux disease or heartburn. People who smoke experience increased heartburn because nicotine decreases the pressure in the lower esophageal sphincter and causes reflux. This type of discomfort is well treated with drinking a large glass of cold water which strips the acid out of the esophagus or taking Mylanta, Maalox or Pepto-Bismol. Other foods to avoid if you have reflux are chocolate, peppermint and calcium containing products such as Tums. Allergies/Adverse Reactions: Allergies No Known Allergies Allergy (Verified 09/02/19 14:01) Medications to take at Discharge Temazepam [Restoril] 15 mg PO QHS 05/24/17 Aspirin [Aspirin, Baby] 81 mg PO QHS 06/09/17 gabapentin 600 mg tablet 300 mg PO QHS tab 01/06/18 bupropion HCl 150 mg tablet,12 hr sustained-release 150 mg PO BID 01/08/18 pantoprazole 40 mg tablet,delayed release 40 mg PO DAILY tab 01/08/18 atorvastatin 40 mg tablet 40 mg PO DINNER #30 tab 12/30/18 isosorbide mononitrate 60 mg tablet,extended release 24 hr 60 mg PO BID #60 tab 02/23/19 ranolazine 1,000 mg tablet,extended release,12 hr 1,000 mg PO BID #180 tab 03/16/19 carvedilol 25 mg tablet 25 mg PO BID #180 tab 03/30/19 clopidogrel 75 mg tablet 75 mg PO DAILY #90 tab 04/06/19 niacin 1,000 mg tablet,extended release 24 hr 1,000 mg PO QHS #30 tab 06/03/19 potassium chloride 20 mEq tablet,extended release 40 meq PO QDAY #180 tab 07/21/19 furosemide 40 mg tablet 40 mg PO BID #180 tab 08/20/19 ramipril 2.5 mg capsule 2.5 mg PO DAILY #90 cap 08/20/19 Loratadine 10 mg PO DAILY 12/26/19 Primary Care Physician: Speedy Boswell MD [Primary Care Provider] - Please follow up with your Primary Care Physician in: Follow-up within 3-5 days to review admission. Test Results: Test results from this visit will be discussed in further detail at your follow-up appointment, if applicable. Please Follow Up With: Speedy Gómez Please Follow Up With: Chapin Still NP-C When: Please follow-up within 1-2 weeks to review admission. Proposed Discharge Date: 12/28/19
--- NOTE | 2019-12-28 13:04 | PCM.DC.SUM ---
Discharge Date and Diagnosis - Problem List Patient Problems: Active and Suspected Problems (Last Reviewed 12/27/19 @ 00:57 by Levar Hahn MD) Chest pain (Acute) Date of Admission: 12/27/19 Date of Discharge: 12/28/19 - Primary Discharge Diagnosis Active and Suspected Problems (Last Reviewed 12/27/19 @ 00:57 by Levar Hahn MD) 1. Chest pain, unremarkable cardiac stress testing, unremarkable cardiac enzymes, unclear specific etiology, suspected noncardiac 2. CAD status post CABG 3. Ischemic cardiomyopathy status post AICD placement 4. Chronic systolic CHF, compensated 5. Hypertension 6. Hyperlipidemia 7. Obesity 8. Former tobacco use 9. Obstructive calculi status post prior ureteral stent placements - Secondary Discharge Diagnosis Chronic Problems (Last Reviewed 12/27/19 @ 00:57 by Levar Hahn MD) Mixed hyperlipidemia (Chronic) Essential hypertension (Chronic) Debility (Chronic) Obesity (BMI 30-39.9) (Chronic) Automatic implantable cardioverter-defibrillator in situ (Chronic) Chronic systolic congestive heart failure (Chronic) Presence of stent in coronary artery (Chronic ~10/15/13) PTCA/stent to prox LAD 02/02/05; PTCA/stent instent restenosis of prox LAD 10/15/13 Atherosclerotic heart disease of [place] coronary artery without angina pectoris (Chronic) CABG x2- PARK to LAD, SARIAH to OM 06/01/05; PTCA/stent to prox LAD 02/02/05; PTCA/stent instent restenosis of prox LAD 10/15/13 Shortness of breath (Chronic) Postsurgical aortocoronary bypass status (Chronic ~06/01/05) CABG x2- PARK to LAD, SARIAH to OM 06/01/05 Ischemic cardiomyopathy (Chronic) ICD (implantable cardioverter-defibrillator) in place (Chronic ~08/17/10) ICD Implant 2009 Hospital Course and Treatment Imaging Results: 12/28/19 05:55 Nuclear Stress Test - Chemical [NM] AM (NON MEDS) Operations: None Procedures: EKG, Stress test Summary of Care Provided: The patient is a 64 y/o M w/ PMHx: CAD s/p CABG, HTN, HLD, Chronic systolic CHF and Ischemic Cardiomyopathy s/p AICD, Former Tobacco use, Hx Calculi s/p ureteral stents/lithotripsy, Former tobacco use, Obesity who presents to [facility] ED on 12/26/19 with history of onset of chest pain described as a dull with no aggravating or ameliorating factors with nausea without emesis as well as dyspnea. In the ED work-up included EKG sinus rhythm without evidence of acute ischemia, CXR without acute process, unremarkable CBC and chemistry, cardiac enzyme set x 1 normal. The patient was admitted to the PCU, maintained on cardiac telemetry, serial cardiac enzymes were obtained as well as serial EKGs which remained unremarkable. Patient underwent 12/28/19 AM cardiac stress testing which was noted to be negative for inducible ischemia. FLP was obtained during admission and noted to be triglyceride 179, total cholesterol 181, LDL 118, VLDL 36, HDL 27. Patient was discharged to home in stable condition with recommendation for follow-up with primary care physician within 3-5 days as well as with his cardiology [employer] INSTRUCTIONAL ASSISTANT within 1 to 2 weeks to reevaluate following recent admission. Patient home medications continued with no changes. Upon evaluation on day of discharge patient denied any recurrent chest discomfort. DAY OF DISCHARGE PROGRESS NOTE: Subjective: Patient without acute event overnight per self and nursing report. Patient denies fever, chills, nausea, emesis, abdominal pain, recurrent or worsened chest pain or dyspnea. Patient agreeable to discharge to home following unremarkable cardiac stress testing. Patient will be discharged with follow-up with primary care physician within 3-5 days in addition to his cardiology [employer] INSTRUCTIONAL ASSISTANT within 1 to 2 weeks. Objective: T 97.6, heart rate 66, BP 109/71, respiratory rate 17, 97% on room air. Physical Examination: General: awake, alert, oriented x 3 and cooperative, seated upright in the bed, NAD. Skin: normal color, turgor, no icterus, cyanosis. HEENT: AT/NC, EOMI, PERRLA, MMM. Lungs: CTA bilaterally, moderate effort, moderate decrease BL bases, no rales, ronchi or wheezing; Heart: Regular rate and rhythm; no gallop, rub audible. Abdomen: soft, obese, NTTP, ND, normal BS. 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 Neurological: patient awake, alert, oriented x 3; cognitive function appears intact upon questioning,; pupils equally reactive to light and accomodation; cranial nerves II-XII grossly normal, moving all 4 extremities, strength mildly globally decreased secondary to acute presentation and underlying comorbidities. Psychiatric: affect appears normal, eager for discharge, no acute evidence of depressive or anxiety feelings. Assessment and Plan: Please see hospital summary above. Patient Problems: Active and Suspected Problems (Last Reviewed 12/27/19 @ 00:57 by Levar Hahn MD) Chest pain (Acute) - Physical Exam Vitals/I&O's: Vital Signs Temp Pulse Resp BP Pulse Ox 97.6 F L 66 17 94/47 L 97 12/28/19 12:52 12/28/19 12:52 12/28/19 12:52 12/28/19 12:52 12/28/19 12:52 Oxygen Delivery Method Room Air Weight: 278 lb 0.046 oz Body Mass Index (BMI) 38.7 Intake and Output for Last 24 Hours 12/26/19 12/27/19 12/28/19 23:59 23:59 23:59 Intake Total 1400 / 1400 435 / 435 Output Total 2125 / 2125 650 / 650 Balance -725 / -725 -215 / -215 Current Medications Acetaminophen (Tylenol) 650 mg PO Q6H PRN PRN PRN Reason: Pain Score 1-3/Temp > 100.7 F Aspirin (Aspirin, Baby) 81 mg PO QHS [facility] Last Admin: 12/27/19 21:37 Dose: 81 mg Documented by: Atorvastatin Calcium (Lipitor) 40 mg PO DINNER [facility] Last Admin: 12/27/19 17:58 Dose: 40 mg Documented by: Bupropion HCl (Wellbutrin Sr (150mg Tablets)) 150 mg PO BID [facility] Last Admin: 12/28/19 10:32 Dose: 150 mg Documented by: Carvedilol (Coreg) 25 mg PO BID [facility] Last Admin: 12/28/19 10:31 Dose: 25 mg Documented by: Clopidogrel Bisulfate (Plavix) 75 mg PO DAILY [facility] Last Admin: 12/28/19 05:19 Dose: 75 mg Documented by: Dextrose (D50w Syringe) 0 gm IV X1 PRN; Protocol PRN Reason: Hypoglycemia Enoxaparin Sodium (Lovenox) 40 mg SC DAILY [facility] Last Admin: 12/28/19 10:06 Dose: Not Given Documented by: Furosemide (Lasix) 40 mg PO 1000,1800 [facility] Last Admin: 12/28/19 10:32 Dose: 40 mg Documented by: Gabapentin (Neurontin) 300 mg PO QHS [facility] Last Admin: 12/27/19 21:37 Dose: 300 mg Documented by: Glucagon () 1 mg IM .X1 PRN PRN Reason: Hypoglycemia Isosorbide Mononitrate (Imdur) 60 mg PO BID [facility] Last Admin: 12/28/19 10:31 Dose: 60 mg Documented by: Loratadine (Claritin) 10 mg PO DAILY [facility] Last Admin: 12/28/19 10:32 Dose: 10 mg Documented by: Magnesium Hydroxide (Milk Of Magnesia) 30 ml PO DAILY PRN PRN PRN Reason: Constipation Morphine Sulfate () 2 mg IV Q3H PRN PRN PRN Reason: chest pain 5-10/10 Niacin (Niaspan) 1,000 mg PO QHS [facility] Last Admin: 12/27/19 21:37 Dose: 1,000 mg Documented by: Ondansetron HCl (Zofran) 4 mg IV Q8H PRN PRN PRN Reason: NAUSEA/VOMITING Pantoprazole Sodium (Protonix) 40 mg PO DAILY [facility] Last Admin: 12/28/19 10:32 Dose: 40 mg Documented by: Potassium Chloride (K-Dur) 40 meq PO DAILYCM [facility] Last Admin: 12/28/19 10:32 Dose: 40 meq Documented by: Ramipril (Altace) 2.5 mg PO DAILY [facility] Last Admin: 12/28/19 10:31 Dose: 2.5 mg Documented by: Ranolazine (Ranexa) 1,000 mg PO BID [facility] Last Admin: 12/28/19 10:31 Dose: 1,000 mg Documented by: Sodium Chloride () 10 - 40 ml IV UD PRN PRN Reason: SALINE FLUSH Last Admin: 12/27/19 21:36 Dose: 10 ml Documented by: Temazepam (Restoril) 15 mg PO QHS [facility] Last Admin: 12/27/19 21:37 Dose: 15 mg Documented by: May resume sexual activity in: No Restrictions Weight Bearing Status: Weight bearing as tolerated Call your doctor if you observe: Fever of 101 or Higher, Inability to urinate, Inability to have a bowel movement, Shortness of breath, Dizziness, Fainting spells, Chest pain, Uncontrolled pain Home Medications: Medications to take at Discharge Temazepam [Restoril] 15 mg PO QHS 05/24/17 Aspirin [Aspirin, Baby] 81 mg PO QHS 06/09/17 gabapentin 600 mg tablet 300 mg PO QHS tab 01/06/18 bupropion HCl 150 mg tablet,12 hr sustained-release 150 mg PO BID 01/08/18 pantoprazole 40 mg tablet,delayed release 40 mg PO DAILY tab 01/08/18 atorvastatin 40 mg tablet 40 mg PO DINNER #30 tab 12/30/18 isosorbide mononitrate 60 mg tablet,extended release 24 hr 60 mg PO BID #60 tab 02/23/19 ranolazine 1,000 mg tablet,extended release,12 hr 1,000 mg PO BID #180 tab 03/16/19 carvedilol 25 mg tablet 25 mg PO BID #180 tab 03/30/19 clopidogrel 75 mg tablet 75 mg PO DAILY #90 tab 04/06/19 niacin 1,000 mg tablet,extended release 24 hr 1,000 mg PO QHS #30 tab 06/03/19 potassium chloride 20 mEq tablet,extended release 40 meq PO QDAY #180 tab 07/21/19 furosemide 40 mg tablet 40 mg PO BID #180 tab 08/20/19 ramipril 2.5 mg capsule 2.5 mg PO DAILY #90 cap 08/20/19 Loratadine 10 mg PO DAILY 12/26/19 Primary Care Physician: Speedy Boswell MD [Primary Care Provider] - Please follow up with your Primary Care Physician in: Follow-up within 3-5 days to review admission. Please Follow Up With: Speedy Gómez Please Follow Up With: Chapin Still T[employer] I INSTRUCTIONAL ASSISTANT-C When: Please follow-up within 1-2 weeks to review admission. Patient Instructions: CHEST PAIN, NonCardiac, CHEST PAIN, Uncertain Cause Disposition: Home Minutes spent on discharge:: 35 Patient Condition:: Fair Medical Necessity - Tobacco Use Smoking Status: Former smoker Meaningful Use Info Meaningful Use Diagnoses (Choose all that apply): None applicable Code Visit OBSV E&M: 41914 Initial observation care L3
--- NOTE | 2019-12-28 13:12 | STRESSREP ---
Stress Test Report Pharmacologic myocardial perfusion stress test. 64-year-old male with a history of ischemic cardiomyopathy, status post coronary bypass surgery stenting, ICD implantation. Stress protocol: Resting EKG demonstrates atrial pacing at a rate of 66 bpm normal intervals are noted resting blood pressures 126/70 mmHg. 0.4 mg of regadenoson was infused per usual protocol followed by Intravenous saline flush injection continuous EKG monitoring was performed. The maximum heart rate attained was 90 bpm which was 57% of maximum predicted heart rate the maximum workload was 1 metabolic equivalent. At rest there were no ST or T wave changes noted to suggest abnormal flow reserve at peak infusion nonspecific ST-T wave changes were noted. The resting blood pressures 126/70 final blood pressure was 116/70 mmHg. Myocardial perfusion protocol. 14.0 mCi of technetium 99m sestamibi was injected at rest. 0.4 mg of regadenoson was infused per usual protocol peak infusion 44.1 mCi of technetium 99m sestamibi was injected stress images were obtained stress and rest images were reconstructed in comparing the short axis vertical long horizontal long axis. Gated images were also obtained per Perfusion SPECT analysis: Review of the stress images demonstrate a dilated cardiac silhouette size. There is a defect noted involving the mid anterior wall extending to the apex and then extending to the apical lateral wall. This is present on the stress and resting images. There is also mild reduction of perfusion noted involving the inferior wall. No obvious reversibility is noted suggest ischemia of the above is suggestive of a previous extensive anterior apical infarct and ischemic cardiomyopathy. Gated SPECT analysis: The gated ejection fraction is noted to be 36%. Conclusion: Ischemic cardiomyopathy. Previous anterior apical and lateral apical infarct. No ischemia noted.
--- NOTE | 2019-12-28 13:39 | CASEMGMT ---
Case Management Progress Note: This specifications writer to patient bedside, introduced self and role. Explained/Reviewed GRISSOM form with patient in regards to current treatment this hospital admission. Informed outpatient billing is determined by his insurance policy and continual review is conducted to determine any changes in condition that may warrant Inpatient stay. Verbalized understanding and denies any questions or concerns. GRISSOM form signed by patient and placed in patient hard chart, copy provided to patient. William Alcantara RNCM
--- NOTE | 2019-12-28 14:28 | PHA.DC.MR ---
Pharmacy Service has performed discharge medication reconciliation for this patient. No new medications issues at time of discharge review. Medications reviewed are from previously reported home medications. The patient's discharge medication list was reviewed for discrepancies and discrepancies were resolved. Home Medications Temazepam [Restoril] 15 mg PO QHS 05/24/17 Aspirin [Aspirin, Baby] 81 mg PO QHS 06/09/17 gabapentin 600 mg tablet 300 mg PO QHS tab 01/06/18 bupropion HCl 150 mg tablet,12 hr sustained-release 150 mg PO BID 01/08/18 pantoprazole 40 mg tablet,delayed release 40 mg PO DAILY tab 01/08/18 atorvastatin 40 mg tablet 40 mg PO DINNER #30 tab 12/30/18 isosorbide mononitrate 60 mg tablet,extended release 24 hr 60 mg PO BID #60 tab 02/23/19 ranolazine 1,000 mg tablet,extended release,12 hr 1,000 mg PO BID #180 tab 03/16/19 carvedilol 25 mg tablet 25 mg PO BID #180 tab 03/30/19 clopidogrel 75 mg tablet 75 mg PO DAILY #90 tab 04/06/19 niacin 1,000 mg tablet,extended release 24 hr 1,000 mg PO QHS #30 tab 06/03/19 potassium chloride 20 mEq tablet,extended release 40 meq PO QDAY #180 tab 07/21/19 furosemide 40 mg tablet 40 mg PO BID #180 tab 08/20/19 ramipril 2.5 mg capsule 2.5 mg PO DAILY #90 cap 08/20/19 Loratadine 10 mg PO DAILY 12/26/19
== END 2019-12-28 13:03 | disposition home or self-care (01) ==
LOC: ED 23:59 → PCU 12-27 00:28
PROVIDERS: Admitting Provider Hospitalist; Emergency Provider Emergency Medicine; PCP Family Medicine; Referring Provider Family Medicine; Visit Provider Family Medicine
DX: R07.89 Other chest pain (principal); R06.02 Shortness of breath; R42 Dizziness and giddiness; I25.10 Atherosclerotic heart disease of native coronary artery without angina pectoris; I44.4 Left anterior fascicular block; E78.2 Mixed hyperlipidemia; I11.0 Hypertensive heart disease with heart failure; I50.22 Chronic systolic (congestive) heart failure; E66.01 Morbid (severe) obesity due to excess calories; K21.9 Gastro-esophageal reflux disease without esophagitis; Z95.810 Presence of automatic (implantable) cardiac defibrillator; Z68.41 Body mass index [BMI] 40.0-44.9, adult; Z71.3 Dietary counseling and surveillance; Z95.1 Presence of aortocoronary bypass graft; Z79.899 Other long term (current) drug therapy; Z87.891 Personal history of nicotine dependence; Z79.82 Long term (current) use of aspirin; Z79.02 Long term (current) use of antithrombotics/antiplatelets
CPT/HCPCS: 36415; 71045; 78452; 80048; 80061; 82962; 84484; 85025; 93005; 93017; 96372; 99218; 99285; A9500; A4216; G0378; J2785

== ENCOUNTER 2020-03-13 20:38 | Emergency (ER) | payer MEDICARE, OTHER, SELFPAY ==
[2020-03-09 13:35] VITALS: BMI 38.0
[2020-03-13 20:39] VITALS: BP 124/73; PULSE 72; RESP 16; TEMP 36.3; O2SAT 96; BMI 37.0
--- NOTE | 2020-03-13 21:06 | RAD_ITS ---
STUDY: X-RAY CHEST REASON FOR EXAM: Male, 64 years old. CHEST PAIN, SOB TECHNIQUE: Single AP portable view of the chest. COMPARISON: Prior study of 12/26/2019 FINDINGS: surveillance system monitor leads are present. There is a bipolar left-sided pacemaker. The lungs are clear and expanded. There is no demonstrated pleural abnormality. The heart size is within normal limits. Status post sternotomy changes are noted. Normal mediastinum and keke. Normal visualized pulmonary arteries. Normal visualized aortic arch and descending thoracic aorta. Normal visualized thoracic spine. Normal visualized ribs, clavicles, and shoulders. There is no demonstrated abnormality of the visualized soft tissue structures of the upper abdomen. RAD/Chest 1 View (Portable) IMPRESSION: Status post sternotomy. Bipolar left-sided pacemaker. No acute cardiopulmonary disease process is seen. Chest findings are stable in the interval. Electronically Signed: Steven Angulo MD at 22:08 EDT , Service support ,
[2020-03-13 21:19] VITALS: O2SAT 96
[2020-03-13 21:57] LABS: Absolute Lymphocyte Count 1.06 X10^3/uL (0.83-4.51); Absolute Neutrophil Count 4.1 X10^3/uL (2.0-7.7); Basophil# 0.04 X10^3/uL; Basophil% 0.7 % (0-1); Eosinophil# 0.18 X10^3/uL; Eosinophils% 3.1 % (0-5); Hematocrit 41.7 % (40-54); Hemoglobin 13.7 g/dL (13.0-16.5); Lymphocyte # 1.06 X10^3/ul (4.0); Lymphocyte % 18.2 % (19-41); Mean Corp Hgb Conc 32.9 g/dL (32-36); Mean Corpuscular Hgb 29.1 pg (27.0-32.0); Mean Corpuscular Volume 88.7 fL (80-94); Mean Platelet Vol. 9.5 fl (6.2-12.0); Monocyte# 0.43 X10^3/uL; Monocyte% 7.4 % (0-10); NRBC Flagged by Analyzer 0 % (0-5); Neutrophil # 4.09 X10^3/uL (2.7-7.7); Neutrophil % 70.3 % (47-70); Platelet Count 182 K/mm3 (150-450); RBC Distribution Width CV 13.5 % (11.6-14.6); RBC Distribution Width SD 44.1 fl (35.1-43.9); White Blood Count 5.8 K/mm3 (4.4-11.0)
[2020-03-13 22:15] LABS: Anion Gap 5 (5-15); BUN 17 mg/dL (7-18); BUN/Creat Ratio 11.7 RATIO (10-20); Calcium,Total 9.4 mg/dL (8.5-10.1); Chloride 111 mmol/L (98-107); Creatinine, Serum 1.45 mg/dL (0.70-1.30); EST Glomerular Filtration Rate 52 mL/min (>60); Est Glom Filt Rate - Afr Amer 63 mL/min (>60); Estimated Creatinine Clearance 56.49 ml/min; Glucose 113 mg/dL (74-106); Potassium 4.4 mmol/L (3.5-5.1); Sodium Level 142 mmol/L (136-145)
[2020-03-13 22:22] LABS: BNP,B-Type NATRIURETIC PEPTIDE 22.1 pg/mL (0-100)
--- NOTE | 2020-03-13 22:40 | ED.VISSUMM ---
- ER Visit Summary Date of Service: 03/13/20 Chief Complaint: Shortness of breath History of Present Illness: The patient is a 64 M history of CAD, SC, cardiomyopathy with a EF of 35%, cardiac stents and a pacemaker defibrillator. He also has known history of prior kidney stones and a right [id number] amputation. Patient states feels short of breath when he lays down on one side or the other. But he denies chest pain. He denies fever or chills. He denies cough. No left leg pain or swelling. No history of DVT or PE. No recent travel, surgery or immobilization. No hemoptysis. Currently states he feels pretty good. Physical Examination: Well-appearing older male vital signs stable afebrile. Pulse ox 96% on room air no signs hypoxia. H EENT exam unremarkable. Neck nontender no JVD. Lungs clear to auscultation bilaterally. Heart regular rhythm no murmur. Abdomen soft nontender normal bowel sounds no peritoneal signs. Extremities moves all 4. 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 Left lower leg calf is nontender without edema or cords. Neurologically is awake and alert. Moving all 4 extremities. No focal motor deficits. Back nontender. Test Results: Chest x-ray portable 1 view shows a prior sternotomy. Left-sided pacemaker. Otherwise no acute abnormality. Normal cardiac silhouette. No failure. No effusions. No infiltrate. EKG is normal sinus rhythm rate of 61 with a prior SC but no change from her prior EKG from December this year. CBC white count of 5. Hemoglobin 13. No bands. Chemistries unremarkable except normal gap. Creatinine 1.45. Troponin normal. BNP normal at 22. Emergency Department Course and Treatment: Patient with atypical dyspnea depending on position but does not sound like orthopnea. He has no swelling in his left leg. Treatment Plan: Patient's work-up is negative. On repeat exam at 10:37 PM. He is doing well. His vital signs are stable. He and I discussed all his test results. He is comfortable being discharged home and following up as an outpatient. Disposition: dc Impression: Acute dyspnea of uncertain etiology History of cardiomyopathy with a EF of 35% History of CAD, SC, pacemaker defibrillator, status post CABG This note was generated with [employer] software. It may contain incorrect words, spelling, and punctuation that were not noted in review of the chart prior to signing ED Disposition - Plan for ED Patient: Referrals: Speedy Boswell MD [Primary Care Provider] -
[2020-03-13 22:41] VITALS: BP 105/88; PULSE 70; RESP 18; O2SAT 98
--- NOTE | 2020-03-13 22:44 | ED.DEP ---
ED Disposition - Plan for ED Patient: Disposition: Home or Assisted Living Instructions: ED Dyspnea Referrals: Speedy Boswell MD [Primary Care Provider] - 3-5 Days if not improving Additional Instructions: Follow-up with your doctor if not improving. All your tests tonight were unremarkable. Your chest x-ray and EKG were both unremarkable.
== END 2020-03-13 22:45 | disposition home or self-care (01) ==
PROVIDERS: Emergency Provider Emergency Medicine; PCP Family Medicine
DX: R06.00 Dyspnea, unspecified (principal); R06.02 Shortness of breath; I25.10 Atherosclerotic heart disease of native coronary artery without angina pectoris; I25.2 Old myocardial infarction; Z87.442 Personal history of urinary calculi; Z95.1 Presence of aortocoronary bypass graft; Z95.810 Presence of automatic (implantable) cardiac defibrillator; Z89.611 Acquired absence of right leg above knee; Z95.5 Presence of coronary angioplasty implant and graft
CPT/HCPCS: 71045; 80048; 83880; 84484; 85025; 93005; 99285; A4216

== ENCOUNTER → 2020-04-21 10:04 | Outpatient (CLI) | payer MEDICARE, OTHER, SELFPAY ==
--- NOTE | 2020-04-21 10:09 | RAD_ITS ---
STUDY: X-RAY - UNILATERAL RIBS ( RIGHT ) WITH CHEST REASON FOR EXAM: Male, 64 years old. Pain after a fall TECHNIQUE - RIBS: 6 view(s) of the ribs. TECHNIQUE - CHEST: Single PA view of the chest. COMPARISON: 03/13/2020 FINDINGS - RIBS: Normal visualized ribs without a demonstrated fracture. FINDINGS - CHEST: Stable appearance of a right subclavian pacemaker The lungs are clear and expanded. There is no demonstrated pleural abnormality. Normal size heart. Normal mediastinum and keke. Normal visualized pulmonary arteries. Normal visualized aortic arch and descending thoracic aorta. Normal visualized thoracic spine. Normal visualized ribs, clavicles, and shoulders. There is no demonstrated abnormality of the visualized soft tissue structures of the upper abdomen. RAD/Ribs Uni Min 3V w/PA Chest IMPRESSION: RIBS: Normal x-ray examination of the ribs. CHEST: Normal x-ray examination of the chest. Electronically Signed: Erlin Marsh MD at 12:07 EDT , Service support ,
== END ==
PROVIDERS: PCP Family Medicine; Referring Provider Family Medicine; Visit Provider Family Medicine
DX: R07.81 Pleurodynia (principal)
CPT/HCPCS: 71101

== ENCOUNTER → 2020-05-26 17:13 | Outpatient (CLI) | payer MEDICARE, OTHER, SELFPAY ==
--- NOTE | 2020-05-26 17:15 | RAD_ITS ---
STUDY: X-RAY - PELVIS AND BILATERAL HIPS REASON FOR EXAM: Male, 65 years old. left posterior hip pain TECHNIQUE: AP view of the pelvis.? 2 views of the right hip, and 2 views of the left hip were obtained. COMPARISON: Prior pelvis radiographs of June 26, 2017 FINDINGS: There is a non-specific bowel gas pattern. Normal visualized soft tissue structures. Normal bilateral iliac wings, sacroiliac joints and visualized sacrum. Normal bilateral superior and inferior pubic rami. Normal pubic symphysis. Normal bilateral ischial tuberosities. There are osteoarthritic changes of the right femoral head with marginal osteophyte formation. There is osteoarthritic spur formation of the right acetabular rim. There is severe articular joint space narrowing of the right hip. Status post left hip arthroplasty. The standard acetabular femoral components are located. Stable areas of spurring and/or myositis lateral to the hip and a nonosseous union of a fragment of the superior greater trochanter unchanged from prior exam. RAD/Hips B/L min 2 views w/ Pelvis IMPRESSION: No substantial changes from prior radiographs of June 26, 2017. Intact pelvic ring without fracture, osteolytic or blastic bone lesion. Moderate degenerative arthrosis of the right hip. Status post total hip replacement on the left with no untoward bone, joint or hardware findings. Electronically Signed: Erika Thompson MD at 23:32 EDT , Service support ,
== END ==
PROVIDERS: PCP Family Medicine; Referring Provider Family Medicine; Visit Provider Family Medicine
DX: M25.559 Pain in unspecified hip (principal)
CPT/HCPCS: 73521

== ENCOUNTER 2020-07-17 20:09 | Emergency (ER) | payer MEDICARE, OTHER, SELFPAY ==
[2020-07-17 20:10] VITALS: BP 131/78; PULSE 74; RESP 15; TEMP 36.6; O2SAT 97; BMI 37.9
--- NOTE | 2020-07-17 20:50 | ED.VIS.GEN ---
History of Present Illness Chief Complaint: Cough Informant: Patient Onset: Days - Onset of respiratory symptoms 3 days ago Context: Sudden Onset Timing: Continuous Quality: Runny nose, congestion, sore throat and cough Location: Upper respiratory Current Severity: Mild Maximum Severity: Mild Worsened by: Nothing Relieved by: Nothing Associated Symptoms: No fever, chills, myalgias arthralgias or GI symptoms and no change in tast Narrative: Patient 65-year-old male who presents with upper respiratory symptoms started 3 days ago. He denies headache, photophobia, neck pain or neck stiffness. His cough is essentially nonproductive. He does report runny nose, congestion, postnasal drainage and intermittent sore throat. He denies change in or loss of taste or smell. He denies chest discomfort. He denies GI symptoms. He denies rash. He denies myalgias or arthralgias. He has no ill contacts. He states he has not been out anywhere without wearing a mask. Prior similar symptoms: Yes - 1 year ago Recent Illness/Hospitalization: No - Past Medical History (1) GERD (gastroesophageal reflux disease) Status: Acute (2) Atherosclerotic heart disease of [place] coronary artery without angina pectoris Status: Chronic Comment: CABG x2- PARK to LAD, SARIAH to OM 06/01/05; PTCA/stent to prox LAD 02/02/05; PTCA/stent instent restenosis of prox LAD 10/15/13 (3) Automatic implantable cardioverter-defibrillator in situ Status: Chronic (4) Chronic systolic congestive heart failure Status: Chronic (5) Debility Status: Chronic (6) Essential hypertension Status: Chronic (7) Ischemic cardiomyopathy Status: Chronic (8) Mixed hyperlipidemia Status: Chronic (9) Obesity (BMI 30-39.9) Status: Chronic (10) Postsurgical aortocoronary bypass status Status: Chronic Comment: CABG x2- PARK to LAD, SARIAH to OM 06/01/05 Past Medical History - Allergies and Home Meds Allergies/Adverse Reactions: Allergies No Known Allergies Allergy (Verified 01/08/20 14:16) Primary Care Physician: Speedy Boswell MD [Primary Care Provider] - Prior records reviewed: Yes Surgical History: coronary bypass surgery - CABG x 2., total hip arthroplasty, tonsillectomy, - - AICD; 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 More recently, in January 2019, patient underwent right above-knee amputation, and subsequent revision. Patient is undergone bilateral shoulder surgery. Patient also has previously undergone coronary stenting. Lives: Spouse/ Significant Other, With Family Smoking Status: Former smoker Alcohol: None Drugs: None - Family History Paternal Family History: Family History (Last Reviewed 03/09/20 @ 14:07 by JHON Veloz) Mother CAD (coronary artery disease) Father CVA (cerebral vascular accident) Myocardial infarction Brother CAD (coronary artery disease) Hx of CABG Brother CAD (coronary artery disease) Hx of CABG Other Family history of CVA Family History: Reports: Cancer - Father with history of liver CA. Maternal Family History: Family History (Last Reviewed 03/09/20 @ 14:07 by JHON Veloz) Mother CAD (coronary artery disease) Father CVA (cerebral vascular accident) Myocardial infarction Brother CAD (coronary artery disease) Hx of CABG Brother CAD (coronary artery disease) Hx of CABG Other Family history of CVA Family History: Reports: Heart Disease Review of Systems General: Reports: Malaise. Denies: Chills, Fever, Sweats Eyes: Denies: Visual changes - bilaterally, Blurred Vision - bilaterally ENT: Reports: Rhinorrhea, Sore throat. Denies: Bilateral ear pain Cardiovascular: Denies: Chest pain, Palpitations Respiratory: Reports: Dyspnea, Cough Gastrointestinal: Denies: Abdominal pain, Nausea, Vomiting, Diarrhea, Melena, Hematochezia Genitourinary: Denies: Dysuria, Hematuria, Frequency Musculoskeletal: Denies: Myalgias, Arthralgias, Neck pain, Back pain, Swelling, Extremity Pain, -, - - Amputation right lower leg, AKA due to malignancy 1996 Skin: Denies: Rash, Wounds Neurological: Denies: Headache, Weakness Hematologic: Denies: Easy bruising, Easy bleeding Physical Exam Vital Signs/Narrative: Vital Signs Temp Pulse Resp BP Pulse Ox 07/17/20 20:10 97.8 F 74 15 131/78 H 97 Inital Vital Signs reviewed: Yes General: Well nourished, Well developed, Obese, No Acute Distress Head: Normocephalic, Atraumatic Eyes: Perrl, EOMI. Negative for: Pale conjunctiva, Scleral icterus ENT: Moist mucous membranes, No rhinorrhea, TM's clear Neck: Supple, Nontender, No lymphadenopathy, No JVD Cardiovascular: Regular rate, Regular rhythm, No murmurs Respiratory: No distress, CTA bilaterally, Chest nontender Abdomen: Soft, Nontender, Nondistended, Normal bowel sounds Rectal: Deferred Back: Nontender Extremities: Nontender, No edema, - - AKA on the right Skin: Normal color, No rash Neurological: Alert, Oriented x3, Cranial nerves II-XII grossly intact, Normal Strength, Normal Sensation Psychological: Normal affect Diagnostic/Tx/Re-eval Chest X-Ray - ED: 1 View, Normal, Bony Structures, No Acute Disease, Chronic Changes, - - Sternal wires noted. Pacemaker noted. Cardiac silhouette and size are normal. Minimal chronic interstitial changes noted. Osseous structures appear normal. - Medical Decision Making Diagnoses include viral upper respiratory infection, COVID-19, pneumonia, appropriate blood work, chest x-ray and Kopit test was obtained. Patient's white count, electrolyte panel and lactate are normal. Chest x-ray is normal. COVID test is pending. We will discharged home with appropriate home-going instructions. ED Disposition - Plan for ED Patient: Disposition: Home or Assisted Living Diagnosis: Suspected 2019-nCoV infection, Upper respiratory infection with cough and congestion Instructions: ED Upper Resp Infec No Abx Tx Referrals: Speedy Boswell MD [Primary Care Provider] - 1 Week if not improving
[2020-07-17 21:23] LABS: Basophil# 0.04 X10^3/uL; Basophil% 0.7 % (0-1); Eosinophil# 0.31 X10^3/uL; Eosinophils% 5.4 % (0-5); Hematocrit 44.2 % (40-54); Hemoglobin 14.5 g/dL (13.0-16.5); Lymphocyte % 24.5 % (19-41); Mean Corp Hgb Conc 32.8 g/dL (32-36); Mean Corpuscular Hgb 29.6 pg (27.0-32.0); Mean Corpuscular Volume 90.2 fL (80-94); Mean Platelet Vol. 9.4 fl (6.2-12.0); Monocyte# 0.89 X10^3/uL; Monocyte% 15.6 % (0-10); NRBC Flagged by Analyzer 0 % (0-5); Neutrophil # 3.04 X10^3/uL (2.7-7.7); Neutrophil % 53.3 % (47-70); Platelet Count 204 K/mm3 (150-450); White Blood Count 5.7 K/mm3 (4.4-11.0)
--- NOTE | 2020-07-17 21:30 | RAD_ITS ---
STUDY: X-RAY CHEST REASON FOR EXAM: Male, 65 years old. COUGH TECHNIQUE: Single AP portable view of the chest. COMPARISON: 04/21/2020. FINDINGS: The lungs are clear and expanded. There is no demonstrated pleural abnormality. Normal size heart. Previous CABG. Pacemaker is seen with leads terminating in the right atrium and right ventricle. Normal mediastinum and keke. Normal visualized pulmonary arteries. Normal visualized aortic arch and descending thoracic aorta. Normal visualized thoracic spine. Normal visualized ribs, clavicles, and shoulders. There is no demonstrated abnormality of the visualized soft tissue structures of the upper abdomen. RAD/Chest 1 View (Portable) IMPRESSION: No definite acute or significant abnormality seen. Electronically Signed: Jesse Ledezma MD at 22:07 EDT , Service support ,
[2020-07-17 21:44] LABS: AST(SGOT) 16 U/L (15-37); Alanine Aminotransfer ALT/SGPT 26 U/L (16-61); Albumin, Serum 3.6 g/dL (3.2-5.0); Alkaline Phosphatase 151 U/L (45-117); Anion Gap 6 (5-15); BUN 19 mg/dL (7-18); BUN/Creat Ratio 14.8 RATIO (10-20); Calcium,Total 9.4 mg/dL (8.5-10.1); Chloride 110 mmol/L (98-107); Creatinine, Serum 1.28 mg/dL (0.70-1.30); EST Glomerular Filtration Rate 60 mL/min (>60); Est Glom Filt Rate - Afr Amer 73 mL/min (>60); Estimated Creatinine Clearance 61.28 ml/min; Globulin 3.6 g/dL (2.2-4.2); Glucose 103 mg/dL (74-106); Potassium 3.9 mmol/L (3.5-5.1); Protein, Total 7.2 g/dL (6.4-8.2); Sodium Level 142 mmol/L (136-145)
[2020-07-17 21:46] LABS: Lactic Acid 1.4 mmol/L (0.4-1.9)
[2020-07-17 22:14] VITALS: BP 130/92; PULSE 82; RESP 16; O2SAT 98
[2020-07-17 22:24] LABS: Probe Check PASS; Specimen Processing Control PASS
== END 2020-07-17 22:25 | disposition home or self-care (01) ==
PROVIDERS: Emergency Provider Emergency Medicine; PCP Family Medicine
DX: J06.9 Acute upper respiratory infection, unspecified (principal); R05 Cough; Z20.828 Contact with and (suspected) exposure to other viral communicable diseases; E66.9 Obesity, unspecified; E78.2 Mixed hyperlipidemia; I11.0 Hypertensive heart disease with heart failure; I25.10 Atherosclerotic heart disease of native coronary artery without angina pectoris; I25.5 Ischemic cardiomyopathy; I50.22 Chronic systolic (congestive) heart failure; K21.9 Gastro-esophageal reflux disease without esophagitis; Z82.3 Family history of stroke; Z82.49 Family history of ischemic heart disease and other diseases of the circulatory system; Z87.891 Personal history of nicotine dependence; Z89.611 Acquired absence of right leg above knee; Z95.1 Presence of aortocoronary bypass graft; Z95.5 Presence of coronary angioplasty implant and graft; Z95.810 Presence of automatic (implantable) cardiac defibrillator
CPT/HCPCS: 71045; 80053; 83605; 85025; 87635; 94799; 99284; A4216; U0003

== ENCOUNTER → 2020-08-29 14:40 | Outpatient (CLI) | payer MEDICARE, OTHER, SELFPAY ==
[2020-08-29 18:05] LABS: Absolute Lymphocyte Count 0.89 X10^3/uL (0.83-4.51); Absolute Neutrophil Count 5.1 X10^3/uL (2.0-7.7); Basophil# 0.04 X10^3/uL; Basophil% 0.6 % (0-1); Eosinophil# 0.14 X10^3/uL; Eosinophils% 2.2 % (0-5); Hematocrit 42.4 % (40-54); Hemoglobin 13.9 g/dL (13.0-16.5); Lymphocyte # 0.89 X10^3/ul (4.0); Lymphocyte % 13.7 % (19-41); Mean Corp Hgb Conc 32.8 g/dL (32-36); Mean Corpuscular Hgb 29.4 pg (27.0-32.0); Mean Corpuscular Volume 89.8 fL (80-94); Mean Platelet Vol. 9.3 fl (6.2-12.0); Monocyte# 0.28 X10^3/uL; Monocyte% 4.3 % (0-10); NRBC Flagged by Analyzer 0 % (0-5); Neutrophil # 5.07 X10^3/uL (2.7-7.7); Neutrophil % 78.3 % (47-70); Platelet Count 317 K/mm3 (150-450); RBC Distribution Width CV 12.7 % (11.6-14.6); RBC Distribution Width SD 42.2 fl (35.1-43.9); Red Blood Count 4.72 M/mm3 (4.6-6.2); White Blood Count 6.5 K/mm3 (4.4-11.0)
[2020-08-29 18:34] LABS: Anion Gap 6 (5-15); BUN 14 mg/dL (7-18); Calcium,Total 9.8 mg/dL (8.5-10.1); Chloride 106 mmol/L (98-107); Creatinine, Serum 1.27 mg/dL (0.70-1.30); EST Glomerular Filtration Rate 60 mL/min (>60); Est Glom Filt Rate - Afr Amer 73 mL/min (>60); Glucose 94 mg/dL (74-106); Potassium 3.4 mmol/L (3.5-5.1); Sodium Level 139 mmol/L (136-145); Thyroid Stim Hormone (TSH) 0.95 uIU/mL (0.358-3.74)
[2020-09-01 14:08] LABS: Testosterone, Free 6.68 ng/dL (5.00-21.00)
[2020-09-01 15:07] LABS: Testosterone, % Free 2.65 % (1.50-4.20); Testosterone, Total 252 ng/dL (264-916)
== END ==
PROVIDERS: PCP Family Medicine; Referring Provider Family Medicine; Visit Provider Family Medicine
DX: E66.9 Obesity, unspecified (principal); I10 Essential (primary) hypertension
CPT/HCPCS: 36415; 80048; 84402; 84403; 84443; 85025

== ENCOUNTER → 2020-09-19 14:59 | Outpatient (CLI) ==
--- NOTE | 2020-09-19 15:06 | CT_ITS ---
STUDY: CT ABDOMEN AND PELVIS WITHOUT CONTRAST REASON FOR EXAM: Male, 65 years old. 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 Sagittal and coronal images were reconstructed. Individualized dose optimization techniques were used for this CT. COMPARISON: Comparison is made with prior study dated 06/25/2019. FINDINGS: The visualized lung bases are unremarkable. The patient is status post CABG. A dual-chamber pacemaker is seen. Normal liver. Normal gallbladder and extrahepatic biliary system. Normal spleen. Normal pancreas. Normal bilateral adrenal glands. 2 mm calculus in the anterior midportion of the right kidney. There is a 6.1 mm calculus in the right renal pelvis. This has decreased slightly in size as compared to prior study. A 2 mm calculus is seen in the posterior mid pole calyx of the left kidney. 4 mm calculus in the lower pole cortex of the left kidney. Mild degree of left perinephric stranding. Stable 2.3 cm cyst in the anterior aspect of the left kidney. Normal visualized stomach. Normal small intestine. Normal colon. The appendix is visualized and appears normal. There is diffuse atherosclerotic calcification of the abdominal aorta, without a demonstrated aneurysm. Normal inferior vena cava. Normal retroperitoneum. Contracted urinary bladder with a mildly dilated irregular urinary bladder wall. Normal abdominal wall. There are diffuse degenerative changes of the visualized lumbar spine. Status post left total hip replacement. CT/Abdomen/Pelvis without Cont IMPRESSION: Stable nonobstructive bilateral intrarenal calculi. Contracted urinary bladder with thickened bladder wall. Electronically Signed: Alex Walls, at 15:56 EDT , Service support ,
== END ==
PROVIDERS: PCP Family Medicine; Referring Provider Urology; Visit Provider Urology
DX: N20.0 Calculus of kidney (principal)
CPT/HCPCS: 74176

== ENCOUNTER 2020-10-05 09:43 | Day surgery (SDC) | payer MEDICARE, OTHER, SELFPAY ==
[2020-09-21 15:05] VITALS: BMI 41.0
--- NOTE | 2020-10-05 09:45 | RAD_ITS ---
STUDY: X-RAY - ABDOMEN/PELVIS REASON FOR EXAM: Male, 65 years old. PRE OP, KIDNEY STONES TECHNIQUE: Single AP view of the abdomen / pelvis. COMPARISON: None. FINDINGS: Normal visualized lung bases. There is an unremarkable bowel gas pattern. 1 cm nephrolith on the left. 6 to 7 mm nephrolith on the right. The visualized liver, spleen and kidneys are grossly normal in size and morphology. Normal soft tissue structures. Total hip arthroplasty on the left. Degenerative changes lumbar spine. RAD/Abdomen Single View IMPRESSION: Bilateral nephroliths Electronically Signed: Max Ellison MD at 23:55 EST , Service support ,
[2020-10-05 10:15] VITALS: BP 140/90; PULSE 63; RESP 16; TEMP 36.2; O2SAT 99; BMI 41.1
[2020-10-05] MEDS: Lactated Ringers 1,000 ML 100 ML IV (10:35)
--- NOTE | 2020-10-05 11:16 | PCM.HP.STD ---
Problem List (1) Renal calculi Status: Acute History of Present Illness Date of Admission: 10/05/20 Chief Complaint: Bilateral renal calculi The patient is a 65 year old male with stones in both the left kidney and the right kidney today were to proceed with bilateral shockwave lithotripsy we do not plan to place a stent. Past Medical History Past Medical History (Chronic Problems): Chronic Problems (Last Reviewed 09/21/20 @ 15:08 by Divina Ahumada) Mixed hyperlipidemia (Chronic) Essential hypertension (Chronic) Debility (Chronic) Obesity (BMI 30-39.9) (Chronic) Automatic implantable cardioverter-defibrillator in situ (Chronic) Chronic systolic congestive heart failure (Chronic) Presence of stent in coronary artery (Chronic ~10/15/13) PTCA/stent to prox LAD 02/02/05; PTCA/stent instent restenosis of prox LAD 10/15/13 Atherosclerotic heart disease of [place] coronary artery without angina pectoris (Chronic) CABG x2- PARK to LAD, SARIAH to OM 06/01/05; PTCA/stent to prox LAD 02/02/05; PTCA/stent instent restenosis of prox LAD 10/15/13 Shortness of breath (Chronic) Postsurgical aortocoronary bypass status (Chronic ~06/01/05) CABG x2- PARK to LAD, SARIAH to OM 06/01/05 Ischemic cardiomyopathy (Chronic) ICD (implantable cardioverter-defibrillator) in place (Chronic ~08/17/10) ICD Implant 2009 Medical History: Medical History (Last Reviewed 09/21/20 @ 15:08 by Divina Ahumada) Mixed hyperlipidemia (Chronic) E78.2 Essential hypertension (Chronic) I10 Debility (Chronic) R53.81 Obesity (BMI 30-39.9) (Chronic) E66.9 Chronic systolic congestive heart failure (Chronic) I50.22 Atherosclerotic heart disease of [place] coronary artery without angina pectoris (Chronic) I25.10 CABG x2- PARK to LAD, SARIAH to OM 06/01/05; PTCA/stent to prox LAD 02/02/05; PTCA/stent instent restenosis of prox LAD 10/15/13 Shortness of breath (Chronic) R06.02 Ischemic cardiomyopathy (Chronic) I25.5 ICD (implantable cardioverter-defibrillator) in place (Chronic) Onset Date: ~08/17/10 Z95.810 ICD Implant 2010 GERD (gastroesophageal reflux disease) K21.9 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 on left side N20.0 Family history of CVA Z82.3 History of tobacco abuse Z87.891 Above knee amputation of right lower extremity Z89.611 Lymphedema of right lower extremity (Resolved) I89.0 Surgical wound dehiscence T81.31XA Acute lymphangitis of right lower extremity (Inactive) L03.125 Atherosclerosis of coronary artery bypass graft without angina pectoris (Inactive) I25.810 CAD (coronary artery disease) (Inactive) I25.10 Chronic Systolic CHF - EF 45% (Inactive) Effects of radiation (Inactive) T66.XXXA late effect radiation right lower extremity GERD (gastroesophageal reflux disease) (Inactive) K21.9 Gastroenteritis (Inactive) K52.9 History of 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 (Inactive) I25.2 termination clerk use of drug (Inactive) Z79.899 Lymphedema of Right Leg (Inactive) Morbid obesity with BMI of 40.0-44.9, adult (Inactive) E66.01, Z68.41 SIRS (systemic inflammatory response syndrome) (Inactive) R65.10 Allergies No Known Allergies Allergy (Verified 10/05/20 10:11) Home Medications: Ambulatory Orders Medication Instructions Recorded Aspirin [Aspirin, Baby] 81 mg PO QHS 06/09/17 bupropion HCl 150 mg tablet,12 hr 150 mg PO BID 01/08/18 sustained-release potassium chloride 20 mEq 40 meq PO QDAY #180 tab 07/21/19 tablet,extended release furosemide 40 mg tablet 40 mg PO BID #180 tab 08/20/19 Loratadine 10 mg PO DAILY 12/26/19 pantoprazole 40 mg tablet,delayed 40 mg PO DAILY #30 tab 01/08/20 release carvedilol 25 mg tablet 25 mg PO BID #180 tab 05/11/20 clopidogrel 75 mg tablet 75 mg PO DAILY #90 tab 05/18/20 isosorbide mononitrate 60 mg 60 mg PO BID #180 tab 06/06/20 tablet,extended release 24 hr atorvastatin 80 mg tablet 80 mg PO DAILY 09/21/20 gabapentin 300 mg capsule 300 mg PO QHS 09/21/20 temazepam 15 mg capsule 15 mg PO QHS PRN 09/21/20 ramipril 2.5 mg capsule 2.5 mg PO DAILY #90 cap 09/23/20 Surgical History: Surgical History (Last Reviewed 09/21/20 @ 15:08 by Divina Ahumada) Presence of stent in coronary artery (Chronic) Onset Date: ~10/15/13 Z95.5 PTCA/stent to prox LAD 02/02/05; PTCA/stent instent restenosis of prox LAD 10/15/13 Postsurgical aortocoronary bypass status (Chronic) Onset Date: ~06/01/05 Z95.1 CABG x2- PARK to LAD, SARIAH to OM 06/01/05 Status post right rotator cuff repair Z98.890 Surgical History: coronary bypass surgery - CABG x 2., total hip arthroplasty, tonsillectomy, - - AICD; 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 More recently, in January 2019, patient underwent right above-knee amputation, and subsequent revision. Patient is undergone bilateral shoulder surgery. Patient also has previously undergone coronary stenting. Psychiatric History: No pertinent psych hx Smoking Status: Former smoker Tobacco Use: Non-smoker - *Family History Maternal Family History: Family History (Last Reviewed 09/21/20 @ 15:08 by Divina Ahumada) Mother CAD (coronary artery disease) Father CVA (cerebral vascular accident) Myocardial infarction Brother CAD (coronary artery disease) Hx of CABG Brother CAD (coronary artery disease) Hx of CABG Other Family history of CVA History Items: Heart Disease, Stroke Paternal Family History: Family History (Last Reviewed 09/21/20 @ 15:08 by Divina Ahumada) Mother CAD (coronary artery disease) Father CVA (cerebral vascular accident) Myocardial infarction Brother CAD (coronary artery disease) Hx of CABG Brother CAD (coronary artery disease) Hx of CABG Other Family history of CVA History Items: Cancer - Father with history of liver CA. Review of Systems Constitutional: Denies: Chills, Fever, Weight Change HEENT: Denies: Head Aches, Sinus Congestion, Sinus Drainage Cardiovascular: Denies: Chest Pain, Palpitations Respiratory: Denies: Cough, Shortness of breath at rest, Sputum production Gastrointestinal: Denies: Abdominal Pain, Nausea, Vomiting Genitourinary: Denies: Dysuria Musculoskeletal: Denies: Joint Pain, Joint Tenderness Skin: Denies: Rash, Wounds Neurological: Denies: Numbness, Tingling, Focal weakness Psychiatric: Denies: Anxiety, Depression, Homicidal Ideations, Suicidal Ideations Hematologic/ Lymphatic: Denies: Easy Bruising, Easy Bleeding VTE Information - Inpt Only VTE Present on Admission: No - Physical Exam Vitals/I&O's: Vital Signs Temp Pulse Resp BP Pulse Ox 97.2 F L 63 16 140/90 H 99 10/05/20 10:15 10/05/20 10:15 10/05/20 10:15 10/05/20 10:15 10/05/20 10:15 Oxygen Delivery Method Room Air Weight: 137.5 kg Body Mass Index (BMI) 41.1 General: Alert, Oriented x3, Cooperative HEENT: Atraumatic, PERRLA, EOMI, Normocephalic Neck: Supple, No JVD, Negative Carotid Bruits Lungs: Clear to auscultation, Normal air movement Cardiovascular: Regular rate, No murmurs Abdomen: Bowel Sounds Present, Soft, Non Tender Extremities: No edema, Capillary Refill Less than 3 Seconds Skin: No rashes, No breakdown Musculoskeletal: No Tenderness to Palpation of Joints or Extremities Neurological: Cranial nerves II-XII grossly intact Psych/Mental Status: Normal Affect, Appropriate Current Medications Lactated Ringer's () 1,000 mls @ 100 mls/hr IV .Q10H MARYANNE Last Admin: 10/05/20 10:35 Dose: 100 mls/hr Documented by: Assessment/Plan All Active Problems (Last Reviewed 09/21/20 @ 15:08 by Divina Ahumada) Renal calculi (Acute) GERD (gastroesophageal reflux disease) (Acute) Chest pain (Acute) Cellulitis of right lower extremity (Resolved) Lymphedema of right lower extremity (Resolved) Plan to proceed with bilateral shockwave lithotripsy
--- NOTE | 2020-10-05 11:21 | PCM.DC.URO ---
Discharge Diet: Light diet - advance as tolerated, Soft diet Discharge Activity: Return to Normal Activity Allergies/Adverse Reactions: Allergies No Known Allergies Allergy (Verified 10/05/20 10:11) Medications to take at Discharge Aspirin [Aspirin, Baby] 81 mg PO QHS 06/09/17 bupropion HCl 150 mg tablet,12 hr sustained-release 150 mg PO BID 01/08/18 potassium chloride 20 mEq tablet,extended release 40 meq PO QDAY #180 tab 07/21/19 furosemide 40 mg tablet 40 mg PO BID #180 tab 08/20/19 Loratadine 10 mg PO DAILY 12/26/19 pantoprazole 40 mg tablet,delayed release 40 mg PO DAILY #30 tab 01/08/20 carvedilol 25 mg tablet 25 mg PO BID #180 tab 05/11/20 clopidogrel 75 mg tablet 75 mg PO DAILY #90 tab 05/18/20 isosorbide mononitrate 60 mg tablet,extended release 24 hr 60 mg PO BID #180 tab 06/06/20 atorvastatin 80 mg tablet 80 mg PO DAILY 09/21/20 gabapentin 300 mg capsule 300 mg PO QHS 09/21/20 temazepam 15 mg capsule 15 mg PO QHS PRN 09/21/20 ramipril 2.5 mg capsule 2.5 mg PO DAILY #90 cap 09/23/20 Hydrocodone/Acetaminophen [[place] 5-325 Tablet] 1 each PO Q4H PRN PRN 7 Days #20 tablet 10/05/20 The following prescriptions were given: Hydrocodone/Acetaminophen [[place] 5-325 Tablet] 1 each PO Q4H PRN PRN 7 Days #20 tablet PRN Reason: Pain 1-10 Or Fever Transmission Status: Sent to [facility] Orders to be completed after discharge: Abdomen Single View [RAD] Time Frame: 10/05/20, Facility: [facility], Location: [facility] Primary Care Physician: Speedy Boswell MD [Primary Care Provider] - Test Results: Test results from this visit will be discussed in further detail at your follow-up appointment, if applicable. Please Follow Up With: Ravi Holder MD When: in 2 weeks, please call to make an appointment.
--- NOTE | 2020-10-05 12:40 | PCM.OPRPT ---
Problem List (1) Renal calculi Status: Acute Report of Operation Date of Procedure: 10/05/20 Pre-Operative Diagnosis: Bilateral renal calculi Post-Operative Diagnosis: Same Surgery/Procedure Performed:: Right ESWL, left ESWL. Description of Surgical Findings:: 65-year-old male presented for treatment of stones on both sides he has a stone in the right kidney is in the left kidney we will proceed with shockwave lithotripsy. Today we did a KUB to confirm the location of the stones. Patient was taken back to the operating room at the smooth induction of anesthesia he was placed on the lithotripter table we start start off on the right side was located the stone in the right kidney delivered a total of 3000 shockwaves at a stone at a rate of 90/min up to 5 to 7 kV at the end of the treatment cycle the stone of broken up really well we then shifted the patient on the lithotripter table and then we found the stone in the left kidney and then we lined up the F2 focal point on the stone and a total of 3000 shockwaves were delivered to the left kidney stone at a rate of 90/min a total of 5 to 7 kV. After both stones were treated in each kidney was decided not to put a stent in patient anesthetic was reversed he was taken back to PACU in good condition we will see him in few weeks with a KUB. Type of Anesthesia:: General - Admit VTE Documentation VTE Present on Admission: No VTE Mechan Device Prophylaxis: SCD's
[2020-10-05 12:47] VITALS: BP 125/72; BP 140/90; PULSE 74; RESP 16; TEMP 36.7; O2SAT 98
[2020-10-05 13:00] VITALS: BP 117/62; BP 140/90; PULSE 66; RESP 18; O2SAT 98
[2020-10-05 13:05] VITALS: BP 117/62; BP 140/90; PULSE 64; RESP 18; TEMP 36.2; O2SAT 97
[2020-10-05 14:05] VITALS: BP 115/60; BP 140/90; PULSE 61; RESP 16; TEMP 36.4; O2SAT 100
== END 2020-10-05 14:40 | disposition home or self-care (01) ==
LOC: SDC 09:43 → AC 09:48
PROVIDERS: Anesthesiology; PCP Family Medicine; Referring Provider Urology; Visit Provider Urology
PROC: (CPT 50590; principal; 2020-10-05 12:25)
DX: N20.0 Calculus of kidney (principal); E78.2 Mixed hyperlipidemia; I11.0 Hypertensive heart disease with heart failure; I25.10 Atherosclerotic heart disease of native coronary artery without angina pectoris; I25.5 Ischemic cardiomyopathy; K21.9 Gastro-esophageal reflux disease without esophagitis; I50.22 Chronic systolic (congestive) heart failure; Z79.82 Long term (current) use of aspirin; Z82.3 Family history of stroke; Z82.49 Family history of ischemic heart disease and other diseases of the circulatory system; Z87.442 Personal history of urinary calculi; Z87.891 Personal history of nicotine dependence; Z89.611 Acquired absence of right leg above knee; Z95.1 Presence of aortocoronary bypass graft; Z95.5 Presence of coronary angioplasty implant and graft; Z95.810 Presence of automatic (implantable) cardiac defibrillator; E66.9 Obesity, unspecified; Z68.41 Body mass index [BMI] 40.0-44.9, adult
CPT/HCPCS: 50590; 74018; 87635; C9803; J7120; J2405; U0003

== ENCOUNTER → 2020-11-03 10:30 | Outpatient (CLI) | payer MEDICARE, OTHER, SELFPAY ==
[2020-10-05 10:15] VITALS: BMI 41.1
--- NOTE | 2020-11-03 10:33 | RAD_ITS ---
STUDY: X-RAY - ABDOMEN/PELVIS REASON FOR EXAM: Male, 65 years old. BILATERAL KIDNEY STONE FOLLOW UP TECHNIQUE: Single AP view of the abdomen / pelvis. COMPARISON: Comparison is made with prior study dated 10/05/2020. FINDINGS: There is an unremarkable bowel gas pattern. The previously seen calculus in the mid lower portion of the left kidney is not seen at this time. Faint calculi are seen in the lower pole calyx of the right kidney. Normal soft tissue structures. There are diffuse degenerative changes of the visualized lumbar spine. RAD/Abdomen Single View IMPRESSION: Previously seen calculus in the left kidney is not seen at this time. Faint calculus in the lower pole calyx of the right kidney. Electronically Signed: Alex Walls, at 13:54 EST , Service support ,
== END ==
PROVIDERS: PCP Family Medicine; Referring Provider Urology; Visit Provider Urology
DX: N20.0 Calculus of kidney (principal)
CPT/HCPCS: 74018

== ENCOUNTER → 2020-11-17 20:21 | Outpatient (CLI) | payer MEDICARE, OTHER, SELFPAY | PROVIDERS: PCP Family Medicine; Referring Provider Otolaryngology; Visit Provider Otolaryngology | DX: G47.33 Obstructive sleep apnea (adult) (pediatric) (principal) | CPT/HCPCS: 95811 ==

== ENCOUNTER 2020-12-21 09:00 | Outpatient (RCR) | payer MEDICARE, OTHER, SELFPAY | END 2020-12-21 23:59 | LOC: IMMUN 09:00 | PROVIDERS: PCP Family Medicine; Visit Provider Family Medicine | DX: Z23 Encounter for immunization (principal) | CPT/HCPCS: 0011A; 0012A; 91301 ==

== ENCOUNTER → 2020-12-28 20:21 | Outpatient (CLI) | payer MEDICARE, OTHER, SELFPAY | PROVIDERS: PCP Family Medicine; Visit Provider Otolaryngology | DX: G47.33 Obstructive sleep apnea (adult) (pediatric) (principal) | CPT/HCPCS: 95810 ==

== ENCOUNTER 2021-02-18 18:58 | Inpatient (IN) | payer MEDICARE, OTHER, SELFPAY ==
[2021-02-18] VITALS (9 sets, daily range): BP systolic 109–159; BP diastolic 64–101; PULSE 72–104; RESP 14–20; TEMP 36.3–37.2; O2SAT 97–99; BMI 41.8; BMI 42.0; BMI 39.6
[2021-02-18 19:05] LABS: Bedside Glucose 113 mg/dL (70-110)
--- NOTE | 2021-02-18 19:08 | EKG12_ITS ---
Test Reason : NEURO Blood Pressure : / mmHG Vent. Rate : 079 BPM Atrial Rate : 079 BPM P-R Int : 170 ms QRS Dur : 104 ms QT Int : 384 ms P-R-T Axes : 062 -53 079 degrees QTc Int : 440 ms Normal sinus rhythm Left anterior fascicular block Anteroseptal infarct , age undetermined Abnormal ECG Confirmed by GRAYSON DORANTES, SCOOTER ([id number]), fan mail editor KIRSTEN WALL ([id number]) on 02/21/2021 8:55:52 AM Referred By: VICTOR MANUEL Confirmed By:SCOOTER GALICIA MD
--- NOTE | 2021-02-18 19:11 | ED.VIS.STROK ---
History of Present Illness Chief Complaint: Neuro S/Sx Informant: Patient Onset: Hours - Onset of altered sensation left upper extremity 1500. Patient states that his arm felt as if it was . It now is tingly. Timing: Continuous Quality and Location: Left Arm Parasthesia Onset: 1500 today February 18 Current Severity: Mild Maximum Severity: Mild Worsened by: Nothing Relieved by: Nothing Associated Symptoms: Headache - Patient reports headache started last evening and is bifrontal. Negative for: Nausea, Vomiting, Chest Pain Narrative: Xander is an elderly male who presents with left arm paresthesia. He denied loss of function. He states his arm felt this afternoon. Onset 1500. Presently he reports numb sensation of left upper extremity only. He complains of bifrontal headache that started last evening. He denies rhinorrhea, congestion or postnasal drainage. He denies change in vision, blurred vision, partial or complete loss of vision or double vision. He denies problems with balance. 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 He denies nausea or vomiting. He denies diarrhea. He denies hematemesis or melena. He denies dysuria, frequency, urgency or hematuria. He denies history of renal disease. He does have history of heart disease with an EF of 35%. He states is not abnormal for him to become dyspneic with exertion. He denies chest discomfort with exertion. Prior similar symptoms: No Recent Illness/Hospitalization: No - Past Medical History (1) GERD (gastroesophageal reflux disease) Status: Acute (2) Renal calculi Status: Acute (3) Atherosclerotic heart disease of [place] coronary artery without angina pectoris Status: Chronic Comment: CABG x2- PARK to LAD, SARIAH to OM 06/01/05; PTCA/stent to prox LAD 02/02/05; PTCA/stent instent restenosis of prox LAD 10/15/13 (4) Automatic implantable cardioverter-defibrillator in situ Status: Chronic (5) Chronic systolic congestive heart failure Status: Chronic (6) Debility Status: Chronic (7) Essential hypertension Status: Chronic (8) Obesity (BMI 30-39.9) Status: Chronic Past Medical History - Allergies and Home Meds Allergies/Adverse Reactions: Allergies No Known Allergies Allergy (Verified 10/05/20 10:11) Primary Care Physician: Speedy Boswell MD [Primary Care Provider] - Prior records reviewed: Yes Surgical History: coronary bypass surgery - CABG x 2., total hip arthroplasty, tonsillectomy, - - AICD; 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 More recently, in January 2019, patient underwent right above-knee amputation, and subsequent revision. Patient is undergone bilateral shoulder surgery. Patient also has previously undergone coronary stenting. Lives: Alone - Smoking Status: Former smoker Alcohol: None Drugs: None - Family History Maternal Family History: Family History (Last Reviewed 09/21/20 @ 15:08 by Divina Ahumada) Mother CAD (coronary artery disease) Father CVA (cerebral vascular accident) Myocardial infarction Brother CAD (coronary artery disease) Hx of CABG Brother CAD (coronary artery disease) Hx of CABG Other Family history of CVA Family History: Reports: Heart Disease, Stroke Paternal Family History: Family History (Last Reviewed 09/21/20 @ 15:08 by Divina Ahumada) Mother CAD (coronary artery disease) Father CVA (cerebral vascular accident) Myocardial infarction Brother CAD (coronary artery disease) Hx of CABG Brother CAD (coronary artery disease) Hx of CABG Other Family history of CVA Family History: Reports: Cancer - Father with history of liver CA. Review of Systems General: Denies: Chills, Fever, Sweats Eyes: Denies: Visual changes - bilaterally, Blurred Vision - bilaterally, Diplopia ENT: Reports: - - He denies ringing in his ears. He does have hearing aids.. Denies: Bilateral ear pain, Rhinorrhea, Sore throat Cardiovascular: Denies: Chest pain, Palpitations Respiratory: Reports: Dyspnea on exertion. Denies: Dyspnea, Cough, Sputum, Orthopnea, Paroxysmal nocturnal dyspnea, -, - Gastrointestinal: Denies: Abdominal pain, Nausea, Vomiting, Diarrhea, Melena, Hematochezia Genitourinary: Denies: Dysuria, Hematuria, Frequency Musculoskeletal: Denies: Myalgias, Arthralgias, Neck pain, Back pain, Swelling, Extremity Pain Skin: Denies: Rash, Wounds Neurological: Reports: Headache, Parasthesia - Left upper extremity only, Numbness. Denies: Weakness Psych: Denies: Depression, Anxiety Endocrine: Denies: Polyuria, Polydipsia Hematologic: Denies: Easy bruising STROKE Vital Signs/Narrative: Vital Signs Temp Pulse Resp BP Pulse Ox 02/18/21 18:58 97.3 F L 83 14 159/101 H 98 Inital Vital Signs reviewed: Yes - NIHSS Initial 1a Level of Consciousness: 0 1b LOC Questions (Score 2 if aphasic/stupor): 0 1c LOC Commands (Only score 1st attempt): 0 2 Best Gaze (If aphasic, use reflexive mvmts.): 0 3 Visual: 0 4 Facial Palsy: 0 5 Motor Arm Right (UN = amputation/fusion): 0 5 Motor Arm Left: 0 6 Motor Leg Right: 0 6 Motor Leg Left: 0 7 Limb ataxia (Only + if out of proportion): 0 8 Sensory (Aphasia/stupor=0 or 1, coma=2): 1 9 Best Language: 0 10 Dysarthria (mute, coma=2, intubated=UN): 0 11 Extinction and Inattention (only scored if +): 0 Total Score: 1 General: Well nourished, Well developed, Obese Head: Normocephalic, Atraumatic Eyes: Perrl, EOMI. Negative for: Pale conjunctiva, Scleral icterus ENT: Moist mucous membranes, No rhinorrhea Neck: Supple, Nontender, No lymphadenopathy, No JVD Cardiovascular: Regular rate, Regular rhythm, No murmurs, Normal S1, Normal S2 Respiratory: No distress, CTA bilaterally, Chest nontender Abdomen: Soft, Nontender, Nondistended, Normal bowel sounds, No masses. Negative for: Mass, Pulsatile mass Rectal: Deferred Back: Nontender, Normal Inspection Extremities: Nontender, No edema, - - Stasis right lower extremity, AKA Skin: Normal color, No rash, No Trauma. Negative for: Cyanosis, Diaphoresis, Jaundice Neurological: Alert, Oriented x3, Cranial nerves II-XII grossly intact, Normal Strength. Negative for: Normal Sensation - Decreased sensation left upper extremity compared to right upper extremity Psychological: Normal affect Diagnostic/Tx/Re-eval Impressions Chest X-Ray 02/18/21 19:21 IMPRESSION: No acute radiographic abnormalities. Electronically Signed: Bird Stuart MD at 19:46 EDT Tel , Service support , Brain CT 02/18/21 19:35 IMPRESSION: Chronic involutional changes of the brain. N.B. : The above information has been verbally conveyed by Ricardo Keller MD to Joce Serrano MD , , on 02/18/2021 20:09:09 (ET). Electronically Signed: Ricardo Keller MD at 20:10 EDT , Service support , 02/18/21 19:21 Chest 1 View [RAD] Stat 02/18/21 19:35 STROKE Brain/Head without Cont [CT] Stat Laboratory Results 02/18/21 02/18/21 02/18/21 19:03 19:13 19:13 WBC 6.6 RBC 4.82 Hgb 14.4 Hct 42.7 MCV 88.6 MCH 29.9 MCHC 33.7 RDW Std Deviation 43.1 RDW Coeff of Ang 13.3 Plt Count 190 MPV 9.2 Immature Gran % (Auto) 0.800 Neut % (Auto) 58.7 Lymph % (Auto) 25.6 [place] % (Auto) 9.0 Eos % (Auto) 5.0 Baso % (Auto) 0.9 Absolute Neuts (auto) 3.9 Absolute Lymphs (auto) 1.70 Nucleated RBC % 0 PT 12.5 INR 1.0 APTT 24.5 Sodium Potassium Chloride Carbon Dioxide Anion Gap BUN Creatinine Estim Creat Clear Calc Est GFR (MDRD) Af Amer Est GFR (MDRD) Non-Af BUN/Creatinine Ratio Glucose Calcium Troponin I POC Glucose 113 H 02/18/21 19:13 WBC RBC Hgb Hct MCV MCH MCHC RDW Std Deviation RDW Coeff of Ang Plt Count MPV Immature Gran % (Auto) Neut % (Auto) Lymph % (Auto) [place] % (Auto) Eos % (Auto) Baso % (Auto) Absolute Neuts (auto) Absolute Lymphs (auto) Nucleated RBC % PT INR APTT Sodium 140 Potassium 3.7 Chloride 109 H Carbon Dioxide 24.0 Anion Gap 7 BUN 15 Creatinine 1.43 H Estim Creat Clear Calc 56.53 Est GFR (MDRD) Af Amer 64 Est GFR (MDRD) Non-Af 53 L BUN/Creatinine Ratio 10.5 Glucose 114 H Calcium 8.9 Troponin I < 0.015 POC Glucose - EKG Initial EKG Interpretation: Sinus Rhythm - EKG is performed at 1956. EKG is a normal sinus rhythm with ventricular rate of 79. MT interval 170 ms. QRS duration 104 ms and consistent with a left anterior fascicular block. QT interval 384 ms. [place] to the left. Decreased anterior force. - Medical Decision Making Stroke Team Activated: No Reviewed Inclusion/Exclusion criteria: No - Outside of window for TPA and minor stroke Was Patient considered for Endovascular Intervention?: No IV Alteplase (t-PA) Administered: No No contraindications for IV Alteplase (t-PA) administration.: No Alteplase (t-PA) risks, benefits, alternative discussed: No Arrived 4 hours and 10 minutes since onset. Symptoms are improving and NIH is 1. Stroke order set was initiated. CT without contrast was obtained since there is concern that patient may have renal dysfunction. ED Disposition - Plan for ED Patient: Disposition: Acute Care Hospital [facility] Diagnosis: Paresthesia of left upper extremity Referrals: Speedy Boswell MD [Primary Care Provider] -
[2021-02-18 19:19] LABS: Absolute Neutrophil Count 3.9 X10^3/uL (2.0-7.7); Basophil# 0.06 X10^3/uL; Basophil% 0.9 % (0-1); Eosinophil# 0.33 X10^3/uL; Hematocrit 42.7 % (40-54); Hemoglobin 14.4 g/dL (13.0-16.5); Lymphocyte % 25.6 % (19-41); Mean Corp Hgb Conc 33.7 g/dL (32-36); Mean Corpuscular Hgb 29.9 pg (27.0-32.0); Mean Corpuscular Volume 88.6 fL (80-94); Mean Platelet Vol. 9.2 fl (6.2-12.0); NRBC Flagged by Analyzer 0 % (0-5); Neutrophil # 3.89 X10^3/uL (2.7-7.7); Neutrophil % 58.7 % (47-70); Platelet Count 190 K/mm3 (150-450); RBC Distribution Width CV 13.3 % (11.6-14.6); RBC Distribution Width SD 43.1 fl (35.1-43.9); Red Blood Count 4.82 M/mm3 (4.6-6.2); White Blood Count 6.6 K/mm3 (4.4-11.0)
--- NOTE | 2021-02-18 19:21 | RAD_ITS ---
INDICATION: Neuro deficit, acute, stroke suspected EXAMINATION/TECHNIQUE: X-RAY - XR Chest 1 View COMPARISON: 07/17/2020. FINDINGS: Left-sided cardiac device. Median sternotomy wires present. The lungs are clear. The cardiomediastinal silhouette is unremarkable. No pleural effusion or pneumothorax. No acute osseous abnormalities. RAD/Chest 1 View IMPRESSION: No acute radiographic abnormalities. Electronically Signed: Bird Stuart MD at 19:46 EDT Tel , Service support ,
[2021-02-18 19:35] LABS: Prothrombin Time (Protime)PT. 12.5 SECONDS (11.7-14.9)
--- NOTE | 2021-02-18 19:35 | CT_ITS ---
STUDY: CT BRAIN WITHOUT CONTRAST REASON FOR EXAM: Male, 65 years old. Neuro deficit, acute, stroke suspected RADIATION DOSAGE (If Supplied By Facility): CTDIvol = ( ) mGy, DLP = ( ) mGycm TECHNIQUE: Transaxial CT imaging of the brain was performed without administration of intravenous contrast material. Individualized dose optimization techniques were used for this CT. COMPARISON: Head CT dated MAY 27, 2014 FINDINGS: Normal soft tissue structures. Normal calvarium. There is mild cerebral atrophy with widening of the extra-axial spaces and ventricular dilatation. Normal white matter tracts of the cerebral hemispheres. Normal basal ganglia and thalami. Normal brainstem. Normal cerebellum. There is no intracranial hemorrhage. There are no findings of an acute ischemic infarction. Normal visualized paranasal sinuses. CT/STROKE Brain/Head without Cont IMPRESSION: Chronic involutional changes of the brain. N.B. : The above information has been verbally conveyed by Ricardo Keller MD to Joce Serrano MD , , on 02/18/2021 20:09:09 (ET). Electronically Signed: Ricardo Keller MD at 20:10 EDT , Service support ,
[2021-02-18 19:36] LABS: Partial Thromboplast Time 24.5 Seconds (24.1-36.2)
[2021-02-18 19:39] LABS: Anion Gap 7 (5-15); BUN 15 mg/dL (7-18); BUN/Creat Ratio 10.5 RATIO (10-20); Calcium,Total 8.9 mg/dL (8.5-10.1); Chloride 109 mmol/L (98-107); Creatinine, Serum 1.43 mg/dL (0.70-1.30); EST Glomerular Filtration Rate 53 mL/min (>60); Est Glom Filt Rate - Afr Amer 64 mL/min (>60); Estimated Creatinine Clearance 56.53 ml/min; Glucose 114 mg/dL (74-106); Potassium 3.7 mmol/L (3.5-5.1); Sodium Level 140 mmol/L (136-145)
--- NOTE | 2021-02-18 21:35 | ECHOCS_ITS ---
Reason For Study: TIA/CVA Procedure This was a 2D Doppler, Color Flow transthoracic echocardiogram. Very technically difficult due to patients body habitus. Contrast injection performed. Maximum amount of contrast used at 9cc. Exam performed portable in patient room. Left Ventricle Normal LV size. Mild concentric left ventricular hypertrophy. The estimated ejection fraction is 40 %. Stage 1 diastolic dysfunction. Moderate segmental systolic dysfunction (see wall motion). [place] : Akinetic. Mid-Anterior : Hypokinetic. Anterior [place] : Hypokinetic. Mid-Inferior: Normal. Infero- Basal: Normal. Lateral-Basal: Normal. Right Ventricle Normal RV size. ICD or pacer leads identified within the right ventricle. Normal systolic function. Atria Normal left atrium. Normal right atrium. Tricuspid Valve Normal tricuspid valve. Aortic Valve Trisinus/trileaflet aortic valve. Pulmonic Valve Normal pulmonic valve. Great Vessels Normal aortic root. The pulmonary artery is normal size. Normal inferior vena cava. Pericardium/Pleural No pericardial effusion. Medication Diluted definity 9ml given slow IV push to enhance endocardial definition. Performed a rapid injection of agitated mix of 9 cc saline and 1cc air to assess for atrial septal defect. MMode/2D Measurements & Calculations Ao root diam: 3.4 cm LAV(MOD-bp): 43.9 ml LA A4 area: 15.1 cm2 LAV(MOD-bp) Indexed: 17.6 ml/m2 LAV(MOD-sp2): 57.2 ml LAV(MOD-sp4): 32.3 ml Time Measurements MV dec time: 0.22 sec Doppler Measurements & Calculations MV E max armin: 57.4 cm/sec Lat Peak E' Armin: 5.3 cm/sec Med Peak E' [place]in: 5.6 cm/sec MV A max armin: 77.3 cm/sec E/E' lat: 10.8 E/E' med: 10.3 MV E/A: 0.74 MV V2 max: 87.2 cm/sec MV P1/2t max armin: 61.5 cm/sec Ao V2 max: 110.7 cm/sec MV max P.0 mmHg MV P1/2t: 120.0 msec Ao max P.9 mmHg MV V2 mean: 47.6 cm/sec MV dec slope: 150.2 cm/sec2 MV mean P.0 mmHg MVA(P1/2t): 1.8 cm2 MV V2 VTI: 25.0 cm LV V1 max: 95.5 cm/sec PA V2 max: 76.5 cm/sec LV V1 max P.6 mmHg Interpretation Summary Normal LV size. Mild concentric left ventricular hypertrophy. The estimated ejection fraction is 40 %. Stage 1 diastolic dysfunction. Moderate segmental systolic dysfunction (see wall motion). Contrast injection was performed. Ordering Physician: Levar Hahn Referring Physician: Speedy Boswell Performed By: Orion Ware RCS
--- NOTE | 2021-02-18 21:35 | CDU_ITS ---
Reason For Study: Stroke-like symptoms Rt. Velocities/BP Lt. Velocities/BP Prox CCA 170/16 cm/sec. Prox CCA 155/12 cm/sec. Mid CCA 105/17 cm/sec. Mid CCA 84/18 cm/sec. Dist CCA 82/14 cm/sec. Dist CCA 78/12 cm/sec. Prox ICA 59/13 cm/sec. Prox ICA 64/14 cm/sec. Mid ICA 75/27 cm/sec. Mid ICA 47/10 cm/sec. Dist ICA 84/28 cm/sec. Dist ICA 57/15 cm/sec. Rt. ICA/CCA = 0.8. Lt. ICA/CCA = 0.8. Prox ECA 101/11 cm/sec. Prox ECA 99/18 cm/sec. Rt. Vert. 62/22 cm/sec. Lt. Vert. 51/9 cm/sec. Right Extracranial There is intimal thickening but no significant atherosclerotic plaque noted in the right common carotid artery. There is heterogeneous, irregular atherosclerotic plaque noted in the right internal carotid artery. There is no significant atherosclerotic plaque noted in the right external carotid artery. Antegrade flow is noted in the right vertebral artery. Left Extracranial There is heterogeneous, smooth atherosclerotic plaque noted in the left common carotid artery. There is heterogeneous, irregular atherosclerotic plaque noted in the left internal carotid artery. There is no significant atherosclerotic plaque noted in the left external carotid artery. Antegrade flow is noted in the left vertebral artery. Procedure Carotid Duplex [id number]. Exam performed portable in patient room. Interpretation Summary Smooth calcific plaque at the distal right common carotid and proximal internal carotid artery with less than 50% stenosis of the right internal carotid artery. Less than 50% stenosis right external carotid artery Irregular calcific plaque in the proximal left internal carotid artery with less than 50% stenosis. Less than 50% stenosis left external carotid artery Patent and antegrade vertebrals bilaterally Ordering Physician: Levar Hahn Referring Physician: Speedy Boswell Performed By: Kajal Still RDCS, RVT
--- NOTE | 2021-02-18 21:56 | PCM.HP.STD ---
Problem List (1) Stroke-like symptoms Status: Acute (2) Paresthesia of left upper extremity Status: Acute (3) GERD (gastroesophageal reflux disease) Status: Chronic (4) Mixed hyperlipidemia Status: Chronic (5) Essential hypertension Status: Chronic (6) Debility Status: Chronic (7) Obesity (BMI 30-39.9) Status: Chronic (8) Automatic implantable cardioverter-defibrillator in situ Status: Chronic (9) Chronic systolic congestive heart failure Status: Chronic (10) Presence of stent in coronary artery Status: Chronic Comment: PTCA/stent to prox LAD 02/02/05; PTCA/stent instent restenosis of prox LAD 10/15/13 (11) Atherosclerotic heart disease of [place] coronary artery without angina pectoris Status: Chronic Qualifiers: [place] vs. transplanted heart: [place] heart Qualified Code(s): I25.10 - Atherosclerotic heart disease of [place] coronary artery without angina pectoris Comment: CABG x2- PARK to LAD, SARIAH to OM 06/01/05; PTCA/stent to prox LAD 02/02/05; PTCA/stent instent restenosis of prox LAD 10/15/13 (12) Shortness of breath Status: Chronic (13) Postsurgical aortocoronary bypass status Status: Chronic Comment: CABG x2- PARK to LAD, SARIAH to OM 06/01/05 (14) Ischemic cardiomyopathy Status: Chronic (15) ICD (implantable cardioverter-defibrillator) in place Status: Chronic Comment: ICD Implant 2009 History of Present Illness Date of Admission: 02/18/21 Chief Complaint: numbness The patient is a 65 year old M with a significant history of heart failure with preserved ejection fraction status post pacemaker with ICD; tobacco abuse; 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 Associated with symptom is frontal headache and mild tingling sensation of the left arm. Past Medical History Past Medical History (Chronic Problems): Chronic Problems (Last Reviewed 02/18/21 @ 22:[address] Levar Hahn MD) GERD (gastroesophageal reflux disease) (Chronic) Mixed hyperlipidemia (Chronic) Essential hypertension (Chronic) Debility (Chronic) Obesity (BMI 30-39.9) (Chronic) Automatic implantable cardioverter-defibrillator in situ (Chronic) Chronic systolic congestive heart failure (Chronic) Presence of stent in coronary artery (Chronic ~10/15/13) PTCA/stent to prox LAD 02/02/05; PTCA/stent instent restenosis of prox LAD 10/15/13 Atherosclerotic heart disease of [place] coronary artery without angina pectoris (Chronic) CABG x2- PARK to LAD, SARIAH to OM 06/01/05; PTCA/stent to prox LAD 02/02/05; PTCA/stent instent restenosis of prox LAD 10/15/13 Shortness of breath (Chronic) Postsurgical aortocoronary bypass status (Chronic ~06/01/05) CABG x2- PARK to LAD, SARIAH to OM 06/01/05 Ischemic cardiomyopathy (Chronic) ICD (implantable cardioverter-defibrillator) in place (Chronic ~08/17/10) ICD Implant 2009 Medical History: Medical History (Last Reviewed 02/18/21 @ 23:[address] Levar Hahn MD) Mixed hyperlipidemia (Chronic) E78.2 Essential hypertension (Chronic) I10 Debility (Chronic) R53.81 Obesity (BMI 30-39.9) (Chronic) E66.9 Chronic systolic congestive heart failure (Chronic) I50.22 Atherosclerotic heart disease of [place] coronary artery without angina pectoris (Chronic) I25.10 CABG x2- PARK to LAD, SARIAH to OM 06/01/05; PTCA/stent to prox LAD 02/02/05; PTCA/stent instent restenosis of prox LAD 10/15/13 Shortness of breath (Chronic) R06.02 Ischemic cardiomyopathy (Chronic) I25.5 ICD (implantable cardioverter-defibrillator) in place (Chronic) Onset Date: ~08/17/10 Z95.810 ICD Implant 2009 GERD (gastroesophageal reflux disease) K21.9 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 on left side N20.0 Family history of CVA Z82.3 History of tobacco abuse Z87.891 Above knee amputation of right lower extremity Z89.611 Lymphedema of right lower extremity (Resolved) I89.0 Surgical wound dehiscence T81.31XA Acute lymphangitis of right lower extremity (Inactive) L03.125 Atherosclerosis of coronary artery bypass graft without angina pectoris (Inactive) I25.810 CAD (coronary artery disease) (Inactive) I25.10 Chronic Systolic CHF - EF 45% (Inactive) Effects of radiation (Inactive) T66.XXXA late effect radiation right lower extremity GERD (gastroesophageal reflux disease) (Inactive) K21.9 Gastroenteritis (Inactive) K52.9 History of 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 (Inactive) 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) Z79.899 Lymphedema of Right Leg (Inactive) Morbid obesity with BMI of 40.0-44.9, adult (Inactive) E66.01, Z68.41 SIRS (systemic inflammatory response syndrome) (Inactive) R65.10 Allergies No Known Allergies Allergy (Verified 10/05/20 10:11) Home Medications: Ambulatory Orders Medication Instructions Recorded Aspirin [Aspirin, Baby] 81 mg PO QHS 06/09/17 bupropion HCl 150 mg tablet,12 hr 150 mg PO BID 01/08/18 sustained-release Loratadine 10 mg PO DAILY 12/26/19 pantoprazole 40 mg tablet,delayed 40 mg PO DAILY #30 tab 01/08/20 release carvedilol 25 mg tablet 25 mg PO BID #180 tab 05/11/20 clopidogrel 75 mg tablet 75 mg PO DAILY #90 tab 05/18/20 isosorbide mononitrate 60 mg 60 mg PO BID #180 tab 06/06/20 tablet,extended release 24 hr atorvastatin 80 mg tablet 80 mg PO QHS 09/21/20 gabapentin 300 mg capsule 300 mg PO QHS 09/21/20 temazepam 15 mg capsule 15 mg PO QHS PRN 09/21/20 ramipril 2.5 mg capsule 2.5 mg PO DAILY #90 cap 09/23/20 furosemide 40 mg tablet 40 mg PO BID #180 tab 11/05/20 potassium chloride 20 mEq 40 meq PO QDAY #180 tab 01/02/21 tablet,extended release Surgical History: Surgical History (Last Reviewed 02/18/21 @ 23:[address] 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 More recently, in January 2019, patient underwent right above-knee amputation, and subsequent revision. Patient is undergone bilateral shoulder surgery. Patient also has previously undergone coronary stenting. Psychiatric History: No pertinent psych hx Lives: Alone - Smoking Status: Current every day smoker Tobacco Use: Chew Alcohol: None Drugs: None - *Family History Maternal Family History: Family History (Last Reviewed 02/18/21 @ 22:[address] Levar Hahn MD) Mother CAD (coronary artery disease) Father CVA (cerebral vascular accident) Myocardial infarction Brother CAD (coronary artery disease) Hx of CABG Brother CAD (coronary artery disease) Hx of CABG Other Family history of CVA History Items: Heart Disease, Stroke Paternal Family History: Family History (Last Reviewed 02/18/21 @ 22:[address] Levar Hahn MD) Mother CAD (coronary artery disease) Father CVA (cerebral vascular accident) Myocardial infarction Brother CAD (coronary artery disease) Hx of CABG Brother CAD (coronary artery disease) Hx of CABG Other Family history of CVA History Items: Cancer - Father with history of liver CA. Review of Systems Constitutional: Denies: Chills, Fever, Weight Change HEENT: Reports: Head Aches. Denies: Sinus Congestion, Sinus Drainage Cardiovascular: Denies: Chest Pain, Palpitations Respiratory: Denies: Cough, Shortness of breath at rest, Sputum production Gastrointestinal: Denies: Abdominal Pain, Nausea, Vomiting Genitourinary: Denies: Dysuria Musculoskeletal: Denies: Joint Pain, Joint Tenderness Skin: Denies: Rash, Wounds Neurological: Reports: Numbness, Tingling. Denies: Focal weakness Psychiatric: Denies: Anxiety, Depression, Homicidal Ideations, Suicidal Ideations Hematologic/ Lymphatic: Denies: Easy Bruising, Easy Bleeding VTE Information - Inpt Only VTE Present on Admission: No VTE Mechan Device Prophylaxis: None VTE Pharm Prophylaxis ordered?: Yes Patient Problems: Active and Suspected Problems (Last Reviewed 02/18/21 @ 22:[address] Levar Hahn MD) Paresthesia of left upper extremity (Acute) Stroke-like symptoms (Acute) - Physical Exam Vitals/I&O's: Vital Signs Temp Pulse Resp BP Pulse Ox 97.7 F L 72 20 H 118/71 98 02/18/21 21:40 02/18/21 21:40 02/18/21 21:40 02/18/21 21:40 02/18/21 21:40 Oxygen Flow Rate (L/min) 2 Oxygen Delivery Method Nasal Cannula Weight: 130.7 kg Body Mass Index (BMI) 39.6 General: Alert, Oriented x3, Cooperative HEENT: Atraumatic, PERRLA, EOMI, Normocephalic Neck: Supple, No JVD, Negative Carotid Bruits Lungs: Clear to auscultation, Normal air movement Cardiovascular: Regular rate, Normal S1, Normal S2, No murmurs Abdomen: Bowel Sounds Present, Soft, Non Tender Extremities: No edema, Capillary Refill Less than 3 Seconds, - - Right [id number]-[id number] amputation Skin: No rashes, No breakdown Musculoskeletal: No Tenderness to Palpation of Joints or Extremities Neurological: Cranial nerves II-XII grossly intact, Coordination normal, - - Strength 4 out of 5 in left upper extremity. Strength 5 out of 5 in left lower extremity. Strength 5 out of 5 in right upper extremity. Difficult to obtain strength in right lower extremity secondary to amputation. Sensation changes in left upper extremity. Psych/Mental Status: Normal Affect, Appropriate Laboratory Results 02/18/21 19:03: POC Glucose 113 H 02/18/21 19:13: WBC 6.6, RBC 4.82, Hgb 14.4, Hct 42.7, MCV 88.6, MCH 29.9, MCHC 33.7, RDW Std Deviation 43.1, RDW Coeff of Ang 13.3, Plt Count 190, MPV 9.2, Immature Gran % (Auto) 0.800, Neut % (Auto) 58.7, Lymph % (Auto) 25.6, [place] % (Auto) 9.0, Eos % (Auto) 5.0, Baso % (Auto) 0.9, Absolute Neuts (auto) 3.9, Absolute Lymphs (auto) 1.70, Nucleated RBC % 0 02/18/21 19:13: PT 12.5, INR 1.0, APTT 24.5 02/18/21 19:13: Sodium 140, Potassium 3.7, Chloride 109 H, Carbon Dioxide 24.0, Anion Gap 7, BUN 15, Creatinine 1.43 H, Estim Creat Clear Calc 56.53, Est GFR (MDRD) Af Amer 64, Est GFR (MDRD) Non-Af 53 L, BUN/Creatinine Ratio 10.5, Glucose 114 H, Calcium 8.9, Troponin I < 0.015 Current Medications Acetaminophen (Acetaminophen 325 Mg Tablet) 650 mg PO Q6H PRN PRN PRN Reason: Pain Score 1-10/Temp > 100.7 F Enoxaparin Sodium (Enoxaparin 40 Mg/0.4 Ml Syringe) 40 mg SC DAILY MARYANNE Hydralazine HCl (Hydralazine 20 Mg/Ml Vial) 5 mg IV Q30M PRN PRN Reason: to maintain BP goals Sodium Chloride () 250 mls @ 15 mls/hr IV .[id number] PRN PRN Reason: Saline Flush Sodium Chloride () 250 mls @ 15 mls/hr IV .[id number] PRN PRN Reason: Additional IVPB Infusion Labetalol HCl (Labetalol (Prefilled) 20 Mg/4 Ml) 10 - 20 mg IV Q10M PRN PRN PRN Reason: to Maintain BP Goals Ondansetron HCl (Ondansetron 4 Mg/2 Ml Vial) 4 mg IV Q8H PRN PRN PRN Reason: NAUSEA/VOMITING Sodium Chloride (0.9% Saline Lock 10 Ml Syringe) 10 - 40 ml IV UD PRN PRN Reason: SALINE FLUSH Assessment/Plan All Active Problems (Last Reviewed 02/18/21 @ 22:[address] Levar Hahn MD) Paresthesia of left upper extremity (Acute) Stroke-like symptoms (Acute) Cellulitis of right lower extremity (Resolved) Lymphedema of right lower extremity (Resolved) The patient is a 65 year old M with a significant history of heart failure with preserved ejection fraction status post pacemaker with ICD; tobacco abuse; liposarcoma of the right leg status post [id number] amputation; CAD status post double bypass and stents; and hypertension who presented to emergency department with numbness of the left arm that started about 3 and half hours prior to presentation; frontal headache and mild tingling sensation of the left arm; and found to have mild weakness of the left arm. Strokelike symptoms Serial NINDS NIH Scale ordered CT of the head was did not show any acute process -Check Hba1c, Lipid level Physical therapy, occupational therapy and to work with patient. N.p.o. until bedside swallow eval. Daily aspirin and Plavix continued. High intensity statin continued Lipid profile and A1c ordered. Permissive hypertension. Control blood pressure with labetalol for systolic blood pressure of more than 220 or diastolic blood pressure of more than 120. Patient has a pacemaker and ICD is not MRI compatible. We will get ultrasound of carotids. Echocardiogram ordered. Tobacco abuse Chews tobacco Counseled. Heart failure with preserved ejection fraction Stable Estimated ejection fraction of 36% on stress test done on 12/28/2019. Hold Coreg and Imdur in the setting of permissive HTN Lasix with potassium supplementation continued Morbid Obesity: BMI: 39.6. Complicates care. Lifetsyle modification recommended. Neuropathy Gabapentin continued Depression Bupropion continued DVT prophylaxis Subcutaneous Lovenox ordered OBSV E&M: [id number] Initial observation care L3
[2021-02-18] MEDS: Acetaminophen 325 MG Tablet 650 MG PO (21:58)
[2021-02-18] MEDS: 0.9% Saline Lock 10 ML Syringe IV (22:40)
[2021-02-19] VITALS (11 sets, daily range): BP systolic 104–139; BP diastolic 62–82; PULSE 57–80; RESP 16–20; TEMP 36.1–36.6; O2SAT 95–99; BMI 39.6
[2021-02-19] MEDS: Gabapentin 300 MG Capsule PO ×2 (00:03→20:32)
[2021-02-19] MEDS: Ibuprofen 600 MG Tablet PO (00:05)
[2021-02-19] MEDS: Temazepam 15 MG Capsule PO (00:06)
[2021-02-19] MEDS: Aspirin 81 MG TAB.CHEW PO ×2 (00:06→20:32)
[2021-02-19 06:36] LABS: Absolute Lymphocyte Count 1.66 X10^3/uL (0.83-4.51); Absolute Neutrophil Count 2.8 X10^3/uL (2.0-7.7); Basophil# 0.05 X10^3/uL; Eosinophil# 0.27 X10^3/uL; Eosinophils% 5.2 % (0-5); Hematocrit 41.1 % (40-54); Hemoglobin 13.8 g/dL (13.0-16.5); Lymphocyte # 1.66 X10^3/ul (4.0); Lymphocyte % 31.8 % (19-41); Mean Corp Hgb Conc 33.6 g/dL (32-36); Mean Corpuscular Hgb 29.7 pg (27.0-32.0); Mean Corpuscular Volume 88.4 fL (80-94); Mean Platelet Vol. 9.1 fl (6.2-12.0); Monocyte# 0.43 X10^3/uL; Monocyte% 8.2 % (0-10); NRBC Flagged by Analyzer 0 % (0-5); Neutrophil # 2.79 X10^3/uL (2.7-7.7); Neutrophil % 53.4 % (47-70); Platelet Count 162 K/mm3 (150-450); RBC Distribution Width CV 13.6 % (11.6-14.6); RBC Distribution Width SD 44.1 fl (35.1-43.9); Red Blood Count 4.65 M/mm3 (4.6-6.2); White Blood Count 5.2 K/mm3 (4.4-11.0)
[2021-02-19] MEDS: Acetaminophen 325 MG Tablet 650 MG PO ×2 (06:57→12:59)
--- NOTE | 2021-02-19 07:04 | EKG12_ITS ---
Test Reason : ARM PAIN Blood Pressure : / mmHG Vent. Rate : 060 BPM Atrial Rate : 060 BPM P-R Int : 226 ms QRS Dur : 106 ms QT Int : 428 ms P-R-T Axes : 065 -54 081 degrees QTc Int : 428 ms Atrial-paced rhythm with prolonged AV conduction Left anterior fascicular block Anterolateral infarct (cited on or before 08-JUN-2017) Abnormal ECG When compared with ECG of 13-MAR-2020 21:19, Significant changes have occurred Confirmed by GRAYSON DORANTES, SCOOTER ([id number]), managing editor KIRSTEN WALL ([id number]) on 02/21/2021 9:10:16 AM Referred By: DAIANA Confirmed By:SCOOTER GALICIA MD
[2021-02-19 07:15] LABS: Anion Gap 7 (5-15); BUN 14 mg/dL (7-18); BUN/Creat Ratio 11.4 RATIO (10-20); Calcium,Total 8.5 mg/dL (8.5-10.1); Chloride 109 mmol/L (98-107); Cholesterol 123 mg/dL (200); Creatinine, Serum 1.23 mg/dL (0.70-1.30); EST Glomerular Filtration Rate 63 mL/min (>60); Est Glom Filt Rate - Afr Amer 76 mL/min (>60); Estimated Creatinine Clearance 63.77 ml/min; Glucose 109 mg/dL (74-106); High Density Lipoprotein 36 mg/dL; Potassium 3.5 mmol/L (3.5-5.1); Sodium Level 142 mmol/L (136-145); Triglycerides 105 mg/dL; Very Low Density Lipoprotein 21 mg/dL (5-40)
[2021-02-19 08:51] LABS: Hemoglobin A1c 5.6 % (3.8-5.6)
[2021-02-19] MEDS: Clopidogrel Bisulfate 75 MG Tablet PO (09:48)
[2021-02-19] MEDS: Furosemide 40 MG Tablet PO ×2 (09:48→18:31)
[2021-02-19] MEDS: Loratadine 10 MG Tablet PO (09:48)
[2021-02-19] MEDS: Potassium Chloride Oral Tablet 20 MEQ 40 MEQ PO (09:48)
[2021-02-19] MEDS: buPROPion (SR) 150 MG Tablet.SA PO ×2 (09:48→20:32)
[2021-02-19] MEDS: Pantoprazole Sodium 40 MG Tablet PO (09:48)
[2021-02-19] MEDS: Enoxaparin 40 MG/0.4 ML Syringe SC (09:49)
--- NOTE | 2021-02-19 12:22 | PN_ITS ---
Patient Problems: Active and Suspected Problems (Last Reviewed 02/18/21 @ 23:[address] Levar Hahn MD) Paresthesia of left upper extremity (Acute) Stroke-like symptoms (Acute) Subjective: Patient seen and examined. He was admitted with complaint of tingling and numbness of the left arm which started about 3 hours prior to admission. He had a slight frontal headache. CT of the brain was negative for any stroke. He could not have MRI because he has a pacemaker that is noncompatible with MRI. He still complains of mild tingling and numbness in left upper extremity. He has no other complaints. Review of systems is otherwise negative. He has remained hemodynamically stable. Vitals/I&O's: Vital Signs Temp Pulse Resp BP Pulse Ox 97.2 F L 80 20 H 129/62 H 99 02/19/21 09:33 02/19/21 09:33 02/19/21 09:33 02/19/21 09:33 02/19/21 09:33 Oxygen Flow Rate (L/min) 2 Oxygen Delivery Method Room Air Weight: 288 lb 2.307 oz Body Mass Index (BMI) 39.6 Intake and Output for Last 24 Hours 02/17/21 02/18/21 02/19/21 23:59 23:59 23:59 Intake Total 700 / 700 Output Total 600 / 600 550 / 550 Balance -600 / -600 150 / 150 General: Alert, Oriented x3, Cooperative, No apparent distress HEENT: Atraumatic, PERRLA, EOMI, Normocephalic Oral: Moist Mucosa Neck: Supple, No JVD, Negative Carotid Bruits Lungs: Clear to auscultation, Normal air movement, No rhonchi, No wheeze, No rales Cardiovascular: Regular rate, Regular Rhythm, Normal S1, Normal S2, No murmurs Abdomen: Bowel Sounds Present, Soft, Non Tender Extremities: No edema, Capillary Refill Less than 3 Seconds Skin: No rashes, No breakdown Musculoskeletal: - - Left AKA Neurological: Cranial nerves II-XII grossly intact, Neuro grossly intact, - - minimal tingling and numbness of LUE Psych/Mental Status: Normal Affect, Appropriate, Alert and oriented to time, place, person, mood and affect Laboratory Results 02/18/21 19:03: POC Glucose 113 H 02/18/21 19:13: WBC 6.6, RBC 4.82, Hgb 14.4, Hct 42.7, MCV 88.6, MCH 29.9, MCHC 33.7, RDW Std Deviation 43.1, RDW Coeff of Ang 13.3, Plt Count 190, MPV 9.2, Immature Gran % (Auto) 0.800, Neut % (Auto) 58.7, Lymph % (Auto) 25.6, [place] % (Auto) 9.0, Eos % (Auto) 5.0, Baso % (Auto) 0.9, Absolute Neuts (auto) 3.9, Absolute Lymphs (auto) 1.70, Nucleated RBC % 0 02/18/21 19:13: PT 12.5, INR 1.0, APTT 24.5 02/18/21 19:13: Sodium 140, Potassium 3.7, Chloride 109 H, Carbon Dioxide 24.0, Anion Gap 7, BUN 15, Creatinine 1.43 H, Estim Creat Clear Calc 56.53, Est GFR (MDRD) Af Amer 64, Est GFR (MDRD) Non-Af 53 L, BUN/Creatinine Ratio 10.5, Glucose 114 H, Calcium 8.9, Troponin I < 0.015 02/19/21 06:27: WBC 5.2, RBC 4.65, Hgb 13.8, Hct 41.1, MCV 88.4, MCH 29.7, MCHC 33.6, RDW Std Deviation 44.1 H, RDW Coeff of Ang 13.6, Plt Count 162, MPV 9.1, Immature Gran % (Auto) 0.400, Neut % (Auto) 53.4, Lymph % (Auto) 31.8, [place] % (Auto) 8.2, Eos % (Auto) 5.2 H, Baso % (Auto) 1.0, Absolute Neuts (auto) 2.8, Absolute Lymphs (auto) 1.66, Nucleated RBC % 0 02/19/21 06:27: Sodium 142, Potassium 3.5, Chloride 109 H, Carbon Dioxide 26.0, Anion Gap 7, BUN 14, Creatinine 1.23, Estim Creat Clear Calc 63.77, Est GFR (MDRD) Af Amer 76, Est GFR (MDRD) Non-Af 63, BUN/Creatinine Ratio 11.4, Glucose 109 H, Calcium 8.5, Triglycerides 105, Cholesterol 123, LDL Cholesterol 66, VLDL Cholesterol 21, HDL Cholesterol 36 L 02/19/21 06:27: Hemoglobin A1c 5.6 02/19/21 08:08: Troponin I < 0.015 02/19/21 10:17: Troponin I < 0.015 Diagnostic Data Chest X-Ray 02/18/21 19:21 IMPRESSION: No acute radiographic abnormalities. Electronically Signed: Bird tSuart MD at 19:46 EDT Tel , Service support , Brain CT 02/18/21 19:35 IMPRESSION: Chronic involutional changes of the brain. N.B. : The above information has been verbally conveyed by Ricardo Keller MD to Joce Serrano MD , , on 02/18/2021 20:09:09 (ET). Electronically Signed: Ricardo Keller MD at 20:10 EDT , Service support , ADDENDUM: 02/18/212016 IMPRESSION: Chronic involutional changes of the brain. N.B. : The above information has been verbally conveyed by Ricardo Keller MD to Joce Serrano MD , , on 02/18/2021 20:09:09 (ET). Electronically Signed: Ricardo Keller MD at 20:10 EDT , Service support , Current Medications Acetaminophen (Acetaminophen 325 Mg Tablet) 650 mg PO Q6H PRN PRN PRN Reason: Pain Score 1-10/Temp > 100.7 F Last Admin: 02/19/21 06:57 Dose: 650 mg Documented by: Aspirin (Aspirin 81 Mg Tab.Chew) 81 mg PO QHS MARYANNE Last Admin: 02/19/21 00:06 Dose: 81 mg Documented by: Atorvastatin Calcium (Atorvastatin Calcium 80 Mg Tablet) 80 mg PO QHS [facility] Bupropion HCl (Bupropion (Sr) 150 Mg Tablet.Sa) 150 mg PO BID [facility] Last Admin: 02/19/21 09:48 Dose: 150 mg Documented by: Clopidogrel Bisulfate (Clopidogrel Bisulfate 75 Mg Tablet) 75 mg PO DAILY [facility] Last Admin: 02/19/21 09:48 Dose: 75 mg Documented by: Enoxaparin Sodium (Enoxaparin 40 Mg/0.4 Ml Syringe) 40 mg SC DAILY [facility] Last Admin: 02/19/21 09:49 Dose: 40 mg Documented by: Furosemide (Furosemide 40 Mg Tablet) 40 mg PO BIDLX [facility] Last Admin: 02/19/21 09:48 Dose: 40 mg Documented by: Gabapentin (Gabapentin 300 Mg Capsule) 300 mg PO QHS [facility] Last Admin: 02/19/21 00:03 Dose: 300 mg Documented by: Hydralazine HCl (Hydralazine 20 Mg/Ml Vial) 5 mg IV Q30M PRN PRN Reason: to maintain BP goals Sodium Chloride () 250 mls @ 15 mls/hr IV .[id number] PRN PRN Reason: Saline Flush Sodium Chloride () 250 mls @ 15 mls/hr IV .[id number] PRN PRN Reason: Additional IVPB Infusion Labetalol HCl (Labetalol (Prefilled) 20 Mg/4 Ml) 10 - 20 mg IV Q10M PRN PRN PRN Reason: to Maintain BP Goals Loratadine (Loratadine 10 Mg Tablet) 10 mg PO DAILY [facility] Last Admin: 02/19/21 09:48 Dose: 10 mg Documented by: Ondansetron HCl (Ondansetron 4 Mg/2 Ml Vial) 4 mg IV Q8H PRN PRN PRN Reason: NAUSEA/VOMITING Pantoprazole Sodium (Pantoprazole Sodium 40 Mg Tablet) 40 mg PO DAILY [facility] Last Admin: 02/19/21 09:48 Dose: 40 mg Documented by: Potassium Chloride (Potassium Chloride Oral Tablet 20 Meq) [facility] Last Admin: 02/19/21 09:48 Dose: 40 meq Documented by: Sodium Chloride (0.9% Saline Lock 10 Ml Syringe) 10 - 40 ml IV UD PRN PRN Reason: SALINE FLUSH Last Admin: 02/18/21 22:40 Dose: 40 ml Documented by: Temazepam (Temazepam 15 Mg Capsule) 15 mg PO QHS PRN PRN Reason: SLEEP Last Admin: 02/19/21 00:06 Dose: 15 mg Documented by: STROKE Vital Signs/Narrative: Vital Signs Temp Pulse Resp BP Pulse Ox 02/19/21 09:33 97.2 F L 80 20 H 129/62 H 99 Medical Necessity - Tobacco Use Smoking Status: Current every day smoker Tobacco Use: Non-smoker, Chew Assessment/Plan All Active Problems (Last Reviewed 02/18/21 @ 23:[address] Levar Hahn MD) Paresthesia of left upper extremity (Acute) Stroke-like symptoms (Acute) Cellulitis of right lower extremity (Resolved) Lymphedema of right lower extremity (Resolved) #TIngling and numbness of LUE * CT of the brain was negative for stroke * unable to get MRI of the brain due to history of pacemaker * On aspirin and Plavix. Also on high intensity statin. * Awaiting carotid ultrasound. * NIHSS stroke scale is 1. * BP well controlled. * 2D echo also ordered. * consult neurology * #Chronic heart failure with reduced ejection fraction * In exacerbation. On Lasix. Will resume Coreg and Imdur * #CAD s/p CABG and stents: On aspirin and Plavix as well as Imdur. Also on Coreg #Hyperlipidemia: On high intensity statin #GERD: On PPI #Peripheral neuropathy: On gabapentin #Depression: Wellbutrin DVT prophylaxis: Lovenox OBSV E&M: [id number] Subsequent observation care L2
--- NOTE | 2021-02-19 15:56 | TELEMED_ITS ---
[facility] Tele[facility] has confirmed receipt of a request for visit. This document confirms receipt of the order initiating the consult. To find the results of the consultation, please view the patient's reports for the scanned Telemed Consult.
[2021-02-19] MEDS: oxyCODONE 5 MG Tablet PO (16:28)
[2021-02-19] MEDS: Atorvastatin Calcium 80 MG Tablet PO (20:32)
[2021-02-20] VITALS (7 sets, daily range): BP systolic 130–140; BP diastolic 78–82; PULSE 60–84; RESP 16–18; TEMP 36.3–36.6; O2SAT 96–98
[2021-02-20] MEDS: Temazepam 15 MG Capsule PO (00:45)
[2021-02-20] MEDS: Acetaminophen 325 MG Tablet 650 MG PO (00:45)
--- NOTE | 2021-02-20 05:55 | CT_ITS ---
STUDY: CT BRAIN WITHOUT CONTRAST REASON FOR EXAM: Male, 65 years old. numbness and tingling of LUE and LLE RADIATION DOSAGE (If Supplied By Facility): CTDIvol = ( 44.99 ) mGy, DLP = ( 863.60 ) mGycm TECHNIQUE: Transaxial CT imaging of the brain was performed without administration of intravenous contrast material. Individualized dose optimization techniques were used for this CT. COMPARISON: 02/18/2021 FINDINGS: Normal soft tissue structures. Normal calvarium. Normal size ventricles and extra-axial spaces for the patient''s age. Normal white matter tracts of the cerebral hemispheres. Normal basal ganglia and thalami. Normal brainstem. Normal cerebellum. There is no intracranial hemorrhage. There are no findings of an acute ischemic infarction. Normal visualized paranasal sinuses. CT/Brain/Head without Contrast IMPRESSION: No acute or evolving intracranial process. Stable since 02/18/2021 Electronically Signed: Rajeev Hunter MD ([place]) at 8:34 EDT , Service support ,
[2021-02-20] MEDS: Pantoprazole Sodium 40 MG Tablet PO (09:34)
[2021-02-20] MEDS: Enoxaparin 40 MG/0.4 ML Syringe SC (09:34)
[2021-02-20] MEDS: buPROPion (SR) 150 MG Tablet.SA PO (09:34)
[2021-02-20] MEDS: Furosemide 40 MG Tablet PO (09:34)
[2021-02-20] MEDS: Clopidogrel Bisulfate 75 MG Tablet PO (09:35)
[2021-02-20] MEDS: Potassium Chloride Oral Tablet 20 MEQ 40 MEQ PO (09:35)
[2021-02-20] MEDS: Loratadine 10 MG Tablet PO (09:35)
--- NOTE | 2021-02-20 10:35 | CASEMGMT ---
RN CLEVE Face to Face with patient for initial transition planning/care coordination assessment. RN CM introduced self and role at [facility]. Patient lying in bed, alert and oriented. Patient willing to participate in assessment and is able to answer all questions appropriately. Care providers, pharmacy, and demographics verified. Patient wishes to discharge home, denies need for home health at this time. Patient states he has no further needs or concerns at this time. CM to follow for discharge planning needs that may arise. PCP: Elbert Specialists: Bibi advanced manufacturing technician Preferred Pharmacy: [facility] [employer] Prescription Benefit: yes Living Will/HPOA: Maddy gonzalez HPOA LNOK: son and daughter Living Arrangements: Patient live with daughter in a ranch style home with 2 steps to enter. Patient states he is independent at home. Transportation: self/daughter DME/HHC: Patient states he has raised toilet, shower chair, grab bars, rollator, wheelchair, and cpap at home. Patient states he has been to [facility] previously and has had [facility]. Disposition Plan: Patient to discharge home with family support and follow-up plans in place. Triny CEBALLOS, RN, CM
--- NOTE | 2021-02-20 11:50 | PCM.DC ---
- Discharge Diagnoses Current Active Problems: Current Active and Chronic Problems (Last Reviewed 02/18/21 @ 23:[address] Levar Hahn MD) Paresthesia of left upper extremity (Acute) Stroke-like symptoms (Acute) GERD (gastroesophageal reflux disease) (Chronic) Mixed hyperlipidemia (Chronic) Essential hypertension (Chronic) Debility (Chronic) Obesity (BMI 30-39.9) (Chronic) Automatic implantable cardioverter-defibrillator in situ (Chronic) Chronic systolic congestive heart failure (Chronic) Presence of stent in coronary artery (Chronic ~10/15/13) PTCA/stent to prox LAD 02/02/05; PTCA/stent instent restenosis of prox LAD 10/15/13 Atherosclerotic heart disease of [place] coronary artery without angina pectoris (Chronic) CABG x2- PARK to LAD, SARIAH to OM 06/01/05; PTCA/stent to prox LAD 02/02/05; PTCA/stent instent restenosis of prox LAD 10/15/13 Shortness of breath (Chronic) Postsurgical aortocoronary bypass status (Chronic ~06/01/05) CABG x2- PARK to LAD, SARIAH to OM 06/01/05 Ischemic cardiomyopathy (Chronic) ICD (implantable cardioverter-defibrillator) in place (Chronic ~08/17/10) ICD Implant 2009 You will use the following diet at home:: Cardiac Your food should be the consistency of: Regular Your liquids should be the consistency of: Regular/Thin Discharge Activity: Return to Normal Activity Weight Bearing Status: Weight bearing as tolerated Call your doctor if you observe: Fever of 101 or Higher, Numbness or Tingling, Shortness of breath, Dizziness, Fainting spells Instructions: ED Symptoms With Uncertain Cause, ED Paraesthesias Additional Instructions: P2Y12 assay pending, to follow up with PCP about results, and to determine if Plavix should be switched to Brilinta or otherwise. Allergies/Adverse Reactions: Allergies No Known Allergies Allergy (Verified 10/05/20 10:11) Medications to take at Discharge Aspirin [Aspirin, Baby] 81 mg PO QHS 06/09/17 bupropion HCl 150 mg tablet,12 hr sustained-release 150 mg PO BID 01/08/18 Loratadine 10 mg PO DAILY 12/26/19 pantoprazole 40 mg tablet,delayed release 40 mg PO DAILY #30 tab 02/07/20 carvedilol 25 mg tablet 25 mg PO BID #180 tab 05/11/20 clopidogrel 75 mg tablet 75 mg PO DAILY #90 tab 05/18/20 isosorbide mononitrate 60 mg tablet,extended release 24 hr 60 mg PO BID #180 tab 06/06/20 atorvastatin 80 mg tablet 80 mg PO QHS 09/21/20 gabapentin 300 mg capsule 300 mg PO QHS 09/21/20 temazepam 15 mg capsule 15 mg PO QHS PRN 09/21/20 ramipril 2.5 mg capsule 2.5 mg PO DAILY #90 cap 09/23/20 furosemide 40 mg tablet 40 mg PO BID #180 tab 11/05/20 potassium chloride 20 mEq tablet,extended release 40 meq PO QDAY #180 tab 01/02/21 Primary Care Physician: Speedy Boswell MD [Primary Care Provider] - Please follow up with your Primary Care Physician in: 1-2 weeks Test Results: Test results from this visit will be discussed in further detail at your follow-up appointment, if applicable. Proposed Discharge Date: 02/20/21
--- NOTE | 2021-02-20 12:10 | PHA.DC.MR ---
Pharmacy Service has performed discharge medication reconciliation for this patient. The patient's discharge medication list was reviewed for discrepancies and discrepancies were resolved. Home Medications Aspirin [Aspirin, Baby] 81 mg PO QHS 06/09/17 bupropion HCl 150 mg tablet,12 hr sustained-release 150 mg PO BID 01/08/18 Loratadine 10 mg PO DAILY 12/26/19 pantoprazole 40 mg tablet,delayed release 40 mg PO DAILY #30 tab 01/08/20 carvedilol 25 mg tablet 25 mg PO BID #180 tab 05/11/20 clopidogrel 75 mg tablet 75 mg PO DAILY #90 tab 05/18/20 isosorbide mononitrate 60 mg tablet,extended release 24 hr 60 mg PO BID #180 tab 06/06/20 atorvastatin 80 mg tablet 80 mg PO QHS 09/21/20 gabapentin 300 mg capsule 300 mg PO QHS 09/21/20 temazepam 15 mg capsule 15 mg PO QHS PRN 09/21/20 ramipril 2.5 mg capsule 2.5 mg PO DAILY #90 cap 09/23/20 furosemide 40 mg tablet 40 mg PO BID #180 tab 11/05/20 potassium chloride 20 mEq tablet,extended release 40 meq PO QDAY #180 tab 01/02/21
--- NOTE | 2021-02-20 12:47 | CASEMGMT ---
PHQ-9 completed, there are no indications of depression. JERRY Lopez
--- NOTE | 2021-02-20 15:56 | PCM.DC.SUM ---
Discharge Date and Diagnosis - Problem List Patient Problems: Active and Suspected Problems (Last Reviewed 02/18/21 @ 23:[address] Levar Hahn MD) Paresthesia of left upper extremity (Acute) Stroke-like symptoms (Acute) Date of Admission: 02/18/21 Date of Discharge: 02/20/21 - Primary Discharge Diagnosis Acute Problems: Active Problems (Last Reviewed 02/18/21 @ 23:[address] Levar Hahn MD) Paresthesia of left upper extremity (Acute) Stroke-like symptoms (Acute) - Secondary Discharge Diagnosis Chronic Problems: Chronic Problems (Last Reviewed 02/18/21 @ 23:[address] Levar Hahn MD) GERD (gastroesophageal reflux disease) (Chronic) Mixed hyperlipidemia (Chronic) Essential hypertension (Chronic) Debility (Chronic) Obesity (BMI 30-39.9) (Chronic) Automatic implantable cardioverter-defibrillator in situ (Chronic) Chronic systolic congestive heart failure (Chronic) Presence of stent in coronary artery (Chronic ~10/15/13) PTCA/stent to prox LAD 02/02/05; PTCA/stent instent restenosis of prox LAD 10/15/13 Atherosclerotic heart disease of [place] coronary artery without angina pectoris (Chronic) CABG x2- PARK to LAD, SARIAH to OM 06/01/05; PTCA/stent to prox LAD 02/02/05; PTCA/stent instent restenosis of prox LAD 10/15/13 Shortness of breath (Chronic) Postsurgical aortocoronary bypass status (Chronic ~06/01/05) CABG x2- PARK to LAD, SARIAH to OM 06/01/05 Ischemic cardiomyopathy (Chronic) ICD (implantable cardioverter-defibrillator) in place (Chronic ~08/17/10) ICD Implant 2009 Hospital Course and Treatment Imaging Results: Diagnostic Data Chest X-Ray 02/18/21 19:21 IMPRESSION: No acute radiographic abnormalities. Electronically Signed: Bird Stuart MD at 19:46 EDT Tel , Service support , Brain CT 02/20/21 05:55 IMPRESSION: No acute or evolving intracranial process. 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 He was admitted through the ED on 02/18/2021 with a complaint of numbness of the left upper extremity was started about 3-1/2 hours prior to admission, with associated frontal headache. Symptoms were otherwise negative and he had never had such symptoms before. He was admitted to rule out stroke. CT of the brain was negative for any acute intracranial pathology. He could not have MRI on account of the pacemaker which was not MRI compatible. He also subsequently also complained of some left lower extremity numbness and tingling. [facility] neurology was consulted and they thought he might have a subcortical stroke on account of the left upper extremity and left lower extremity normal is not tingling. Patient had been on aspirin and Plavix which was continued since his statin. Based on neurology recommendations, a P2 Y 12 assay was sent to assess for Plavix efficacy. This was a send out test and was still pending at time of discharge. Carotid duplex was also done and showed less than 50% stenosis of the right internal carotid artery and right external carotid artery as well as irregular calcific plaque in the proximal left internal carotid artery with less than 50% stenosis and less than 50% stenosis of the left external carotid artery. 2D echo was done and was pending at time of discharge. Patient also worked with physical therapy and did well. He remained stable and was discharged home on 02/20/2021. He is to follow-up with his primary care doctor for evaluation and is also to see his PCP to follow-up on the P2 Y 12 assay test. Patient seen and examined prior to discharge. He had no complaints. Numbness and tingling had resolved. Review of systems was otherwise negative. Labs and vitals reveiwed. Home meds reviewed and reconciled. O/E: Vital Signs Temp Pulse Resp BP Pulse Ox 97.5 F L 84 16 137/81 H 98 02/20/21 14:29 02/20/21 14:29 02/20/21 14:29 02/20/21 14:29 02/20/21 14:29 [] General: Alert, Oriented x3, Cooperative, No apparent distress HEENT: Atraumatic, PERRLA, EOMI, Normocephalic Oral: Moist Mucosa Neck: Supple, No JVD, Negative Carotid Bruits Lungs: Clear to auscultation, Normal air movement, No rhonchi, No wheeze, No rales Cardiovascular: Regular rate, Regular Rhythm, Normal S1, Normal S2, No murmurs Abdomen: Bowel Sounds Present, Soft, Non Tender Extremities: No edema, Capillary Refill Less than 3 Seconds Skin: No rashes, No breakdown Musculoskeletal: - - Left AKA Neurological: Cranial nerves II-XII grossly intact, Neuro grossly intact, - -numbness and tingling of LUE and LLE have resolved. Psych/Mental Status: Normal Affect, Appropriate, Alert and oriented to time, place, person, mood and affect Plan is for discharge home today. Patient Problems: Active and Suspected Problems (Last Reviewed 02/18/21 @ 23:[address] Levar Hahn MD) Paresthesia of left upper extremity (Acute) Stroke-like symptoms (Acute) - Physical Exam Vitals/I&O's: Vital Signs Temp Pulse Resp BP Pulse Ox 97.5 F L 84 16 137/81 H 98 02/20/21 14:29 02/20/21 14:29 02/20/21 14:29 02/20/21 14:29 02/20/21 14:29 Oxygen Flow Rate (L/min) 2 Oxygen Delivery Method Room Air Weight: 288 lb 2.307 oz Body Mass Index (BMI) 39.6 Intake and Output for Last 24 Hours 02/18/21 02/19/21 02/20/21 23:59 23:59 23:59 Intake Total 1180 / 1400 420 / 420 Output Total 600 / 600 1200 / 1900 1900 / 1900 Balance -600 / -600 -20 / -500 -1480 / -1480 Laboratory Results 02/20/21 05:00: Miscellaneous Test Pending Discharge Diet: Low fat/ Low Cholesterol Discharge Activity: Return to Normal Activity Weight Bearing Status: Weight bearing as tolerated Call your doctor if you observe: Fever of 101 or Higher, Numbness or Tingling, Shortness of breath, Dizziness, Fainting spells Home Medications: Medications to take at Discharge Aspirin [Aspirin, Baby] 81 mg PO QHS 06/09/17 bupropion HCl 150 mg tablet,12 hr sustained-release 150 mg PO BID 01/08/18 Loratadine 10 mg PO DAILY 12/26/19 pantoprazole 40 mg tablet,delayed release 40 mg PO DAILY #30 tab 01/08/20 carvedilol 25 mg tablet 25 mg PO BID #180 tab 05/11/20 clopidogrel 75 mg tablet 75 mg PO DAILY #90 tab 05/18/20 isosorbide mononitrate 60 mg tablet,extended release 24 hr 60 mg PO BID #180 tab 06/06/20 atorvastatin 80 mg tablet 80 mg PO QHS 09/21/20 gabapentin 300 mg capsule 300 mg PO QHS 09/21/20 temazepam 15 mg capsule 15 mg PO QHS PRN 09/21/20 ramipril 2.5 mg capsule 2.5 mg PO DAILY #90 cap 09/23/20 furosemide 40 mg tablet 40 mg PO BID #180 tab 11/05/20 potassium chloride 20 mEq tablet,extended release 40 meq PO QDAY #180 tab 01/02/21 Primary Care Physician: Speedy Boswell MD [Primary Care Provider] - Please follow up with your Primary Care Physician in: 1-2 weeks Patient Instructions: ED Paraesthesias, ED Symptoms With Uncertain Cause Disposition: Home Minutes spent on discharge:: 40 Patient Condition:: Stable Medical Necessity - Tobacco Use Smoking Status: Current every day smoker Tobacco Use: Non-smoker, Chew Meaningful Use Info Meaningful Use Diagnoses (Choose all that apply): None applicable Inpatient E&M: 21476 Disch Hosp
== END 2021-02-20 15:39 | disposition home or self-care (01) | DRG 92 ==
LOC: ED 20:29 → PCU 20:57
PROVIDERS: Admitting Provider Hospitalist; Emergency Provider Emergency Medicine; PCP Family Medicine; Visit Provider Student in an Organized Health Care Education/Training Program
DX: R20.2 Paresthesia of skin (principal); I50.42 Chronic combined systolic (congestive) and diastolic (congestive) heart failure; C49.9 Malignant neoplasm of connective and soft tissue, unspecified; I11.0 Hypertensive heart disease with heart failure; K21.9 Gastro-esophageal reflux disease without esophagitis; E78.2 Mixed hyperlipidemia; I65.23 Occlusion and stenosis of bilateral carotid arteries; R53.81 Other malaise; I25.10 Atherosclerotic heart disease of native coronary artery without angina pectoris; I25.5 Ischemic cardiomyopathy; E66.01 Morbid (severe) obesity due to excess calories; F32.9 Major depressive disorder, single episode, unspecified; G62.9 Polyneuropathy, unspecified; Z68.39 Body mass index [BMI] 39.0-39.9, adult; Z95.1 Presence of aortocoronary bypass graft; Z79.02 Long term (current) use of antithrombotics/antiplatelets; Z95.810 Presence of automatic (implantable) cardiac defibrillator; Z89.611 Acquired absence of right leg above knee; Z80.0 Family history of malignant neoplasm of digestive organs; Z82.3 Family history of stroke; Z82.49 Family history of ischemic heart disease and other diseases of the circulatory system; Z87.442 Personal history of urinary calculi; Z95.5 Presence of coronary angioplasty implant and graft; Z96.649 Presence of unspecified artificial hip joint; F17.200 Nicotine dependence, unspecified, uncomplicated; I44.4 Left anterior fascicular block; R51.9 Headache, unspecified
CPT/HCPCS: 36415; 70450; 71045; 80048; 80061; 82962; 83036; 84484; 85025; 85610; 85730; 93005; 93306; 93880; 94762; 97110; 97162; 97166; 97530; 99285; 99406; J7030; Q9957; A4216; C8929

== ENCOUNTER → 2021-03-03 11:34 | Outpatient (CLI) | payer MEDICARE, OTHER, SELFPAY ==
[2021-02-19 09:18] VITALS: BMI 39.6
[2021-03-03 15:29] LABS: Anion Gap 7 (5-15); BUN 18 mg/dL (7-18); BUN/Creat Ratio 14.6 RATIO (10-20); Calcium,Total 9.6 mg/dL (8.5-10.1); Chloride 103 mmol/L (98-107); Cholesterol 117 mg/dL (200); Creatinine, Serum 1.23 mg/dL (0.70-1.30); EST Glomerular Filtration Rate 63 mL/min (>60); Est Glom Filt Rate - Afr Amer 76 mL/min (>60); Glucose 107 mg/dL (74-106); High Density Lipoprotein 36 mg/dL; Potassium 3.7 mmol/L (3.5-5.1); Sodium Level 138 mmol/L (136-145); Triglycerides 129 mg/dL; Very Low Density Lipoprotein 26 mg/dL (5-40)
== END ==
PROVIDERS: PCP Family Medicine; Referring Provider Family Medicine; Visit Provider Family Medicine
DX: I10 Essential (primary) hypertension (principal)
CPT/HCPCS: 36415; 80048; 80061

== ENCOUNTER 2021-05-09 18:38 | Observation (INO) | payer MEDICARE, SELFPAY ==
[2021-03-22 14:14] VITALS: BMI 41.0
[2021-05-09] VITALS (8 sets, daily range): BP systolic 99–129; BP diastolic 56–75; PULSE 64–72; RESP 15–20; TEMP 36.1–36.8; O2SAT 95–96; BMI 40.0; BMI 39.4
--- NOTE | 2021-05-09 19:02 | EX.ED.DYSGE1 ---
HPI History of Present Illness Chief Complaint: Foreign Body Informant: patient Narrative Narrative: Patient is a 66-year-old male with a past medical history of CAD, cardiomyopathy who presents to the emergency department for hot dog stuck in his throat sensation. This occurred a little over an hour ago. He tried drinking carbonated beverages as well as somebody tried to give him the Heimlich maneuver. He feels like it is stuck at the bottom of his throat. He is not able to handle secretions. He denies any shortness of breath. He feels like his breathing is not affected. He has had issues with food getting stuck in the past but never had to come to the emergency department before he has had EGDs in the past. Patient denies any abdominal pain. No fevers or chills. [facility] Medical History (Updated 05/09/21 @ 21:55 by Tita Garvey) Above knee amputation of right lower extremity Acute lymphangitis of right lower extremity Alcohol abuse Atherosclerosis of coronary artery bypass graft without angina pectoris Atherosclerotic heart disease of [place] coronary artery without angina pectoris CAD (coronary artery disease) Cancer Chronic Systolic CHF - EF 45% Chronic systolic congestive heart failure CPAP (continuous positive airway pressure) dependence Debility Depression Effects of radiation Essential hypertension Family history of CVA Former smoker Gastroenteritis GERD (gastroesophageal reflux disease) GERD (gastroesophageal reflux disease) Hearing loss, left Hearing loss, right History of 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 History of tobacco abuse ICD (implantable cardioverter-defibrillator) in place (~08/17/10) Ischemic cardiomyopathy 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 on left side [employer] use of drug Lymphedema of Right Leg Lymphedema of right lower extremity Mixed hyperlipidemia Morbid obesity with BMI of 40.0-44.9, adult Myocardial infarct Obesity (BMI 30-39.9) Pacemaker Shortness of breath SIRS (systemic inflammatory response syndrome) Sleep apnea Surgical wound dehiscence TIA (transient ischemic attack) Home Medications aspirin 81 mg PO QHS 06/09/17 [History Last Taken 05/08/21 17:00] bupropion HCl 150 mg tablet,12 hr sustained-release 150 mg PO BID 01/08/18 [History Last Taken 05/09/21 17:00] loratadine 10 mg PO DAILY 12/26/19 [History Last Taken 05/09/21 08:00] pantoprazole 40 mg tablet,delayed release 40 mg PO DAILY #30 tablet 01/08/20 [Rx Last Taken 05/09/21 08:00] carvedilol 25 mg tablet 25 mg PO BID #180 tablet 05/11/20 [Rx Last Taken 05/09/21 17:00] isosorbide mononitrate 60 mg tablet,extended release 24 hr 60 mg PO BID #180 tablet 06/06/20 [Rx Last Taken 05/09/21 17:00] atorvastatin 80 mg tablet 80 mg PO QHS 09/21/20 [History Last Taken 05/09/21 17:00] gabapentin 300 mg capsule 300 mg PO QHS 09/21/20 [History Last Taken 05/08/21 23:00] temazepam 15 mg capsule 15 mg PO QHS PRN 09/21/20 [History Last Taken 05/08/21 23:00] furosemide 40 mg tablet 40 mg PO BID #180 tablet 11/05/20 [Rx Last Taken 05/09/21 17:00] potassium chloride 20 mEq tablet,extended release 40 meq PO QDAY #180 tablet 01/02/21 [Rx Last Taken 05/09/21 08:00] ramipril 2.5 mg capsule 2.5 mg PO BID #180 cap 03/22/21 [Rx Last Taken 05/09/21 17:00] trazodone 50 mg tablet 50 mg PO QHS 03/22/21 [History Last Taken 05/08/21 23:00] clopidogrel [Plavix] 75 mg PO DAILY 05/09/21 [History Last Taken 05/09/21 08:00] Allergy/AdvReac Type Severity Reaction Status Date / Time No Known Allergies Allergy Verified 05/09/21 18:41 Family History Mother CAD (coronary artery disease) Father CVA (cerebral vascular accident) Myocardial infarction Brother CAD (coronary artery disease) Hx of CABG Brother CAD (coronary artery disease) Hx of CABG Other Family history of CVA Surgical History Postsurgical aortocoronary bypass status (~06/01/05) Presence of stent in coronary artery (~10/15/13) Status post right rotator cuff repair Social History Smoking Status: Former smoker ROS ROS ED Constitutional Constitutional ED: Denies chills or fever(s) Eyes Eyes: Denies change in vision ENT ENT ED: Denies epistaxis Cardiovascular Cardiovascular: Denies chest pain or palpitations Respiratory/Chest Respiratory/Chest: Denies cough, dyspnea or dyspnea on exertion Gastrointestinal Gastrointestinal: Denies abdominal pain, diarrhea, nausea or vomiting Musculoskeletal Musculoskeletal: Denies back pain or neck pain Integumentary Denies rash Neurologic Neurologic: Denies dizziness, headache(s) or weakness EXAM Physical Exam Const Vital Signs: 05/09/21 18:39 05/09/21 19:32 05/09/21 20:20 Temperature 97.6 F L 97.6 F L Temperature Source Temporal Temporal Pulse Rate 69 69 Respiratory Rate 15 15 Respiratory Effort Normal Respiratory Pattern Normal Blood Pressure 129/66 H 129/66 H Blood Pressure Mean 87 87 Pulse Ox 96 96 Oxygen Delivery Method Room Air Room Air Positive well nourished and well developed General Appearance ED: well developed and NAD HEENT Reports normocephalic, head/scalp atraumatic and moist mucous membranes HEENT Narrative: No neck mass appreciated. No food bolus able to be seen in the oropharynx. No stridor present. He is spitting out his secretions. Eyes PERRL and EOMs intact bilaterally Neck no lymphadenopathy and supple General: Negative for tenderness Resp normal respiratory effort and clear to auscultation bilaterally Auscultation: Negative for rales, rhonchi or wheezes Cardio regular rate, regular rhythm and no murmurs GI normal to inspection, nondistended, normoactive bowel sounds and non-tender Palpation: soft; Negative for guarding or rebound tenderness present Extremity normal to inspection Neuro oriented x3, CN's II-XII intact bilaterally and no sensory deficits noted Sensorium / Orientation: alert Motor Exam: strength 5/5 throughout Psych mental status grossly normal Skin no rashes or lesions noted MDM MDM MDM Narrative Medical decision making narrative: Patient presents to the ED for food bolus stuck in his esophagus. He has no issues with his airway. I did contact general surgery. Patient has a high ASA score and will require anesthesia for sedation. Patient admitted for EGD under anesthesia in the OR. He otherwise has been stable throughout ED stay. Discharge Plan Dx/Rx/DC Orders Clinical Impression: Esophageal foreign body Disposition Disposition: Acute Care Hospital [facility] Discharge Date/Time: 05/09/21 20:20
--- NOTE | 2021-05-09 20:31 | HP.PCM.SX_ITS ---
HPI - General General Date of Admission: 05/09/21 HPI Narrative ARISTIDES ISSA, is a 66 M who presents feeling food stuck in his esophagus. The patient has not been able to swallow his secretions. The patient has tried drinking and he ends up vomiting. Patient has had food stuck in his esophagus before but usually drinking passes it down. The patient is on a PPI. Patient does not have any nausea or vomiting at this time. No neck pain. [facility] Medical History (Updated 05/09/21 @ 20:[address] Arun Denny MD) Above knee amputation of right lower extremity Acute lymphangitis of right lower extremity Atherosclerosis of coronary artery bypass graft without angina pectoris Atherosclerotic heart disease of [place] coronary artery without angina pectoris CAD (coronary artery disease) Chronic Systolic CHF - EF 45% Chronic systolic congestive heart failure Debility Effects of radiation Essential hypertension Family history of CVA Gastroenteritis GERD (gastroesophageal reflux disease) GERD (gastroesophageal reflux disease) History of 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 History of tobacco abuse ICD (implantable cardioverter-defibrillator) in place (~08/17/10) Ischemic cardiomyopathy 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 on left side [facility] use of drug Lymphedema of Right Leg Lymphedema of right lower extremity Mixed hyperlipidemia Morbid obesity with BMI of 40.0-44.9, adult Obesity (BMI 30-39.9) Shortness of breath SIRS (systemic inflammatory response syndrome) Surgical wound dehiscence Home Medications aspirin 81 mg PO QHS 06/09/17 [History Last Taken 09/28/20] bupropion HCl 150 mg tablet,12 hr sustained-release 150 mg PO BID 01/08/18 [History Last Taken 10/05/20] loratadine 10 mg PO DAILY 12/26/19 [History Last Taken Unknown] pantoprazole 40 mg tablet,delayed release 40 mg PO DAILY #30 tablet 01/08/20 [Rx Last Taken 10/05/20] carvedilol 25 mg tablet 25 mg PO BID #180 tablet 05/11/20 [Rx Last Taken 10/05/20] isosorbide mononitrate 60 mg tablet,extended release 24 hr 60 mg PO BID #180 tablet 06/06/20 [Rx Last Taken Unknown] atorvastatin 80 mg tablet 80 mg PO QHS 09/21/20 [History Last Taken Unknown] gabapentin 300 mg capsule 300 mg PO QHS 09/21/20 [History Last Taken Unknown] temazepam 15 mg capsule 15 mg PO QHS PRN 10/21/20 [History Last Taken Unknown] furosemide 40 mg tablet 40 mg PO BID #180 tablet 11/05/20 [Rx Last Taken Unknown] potassium chloride 20 mEq tablet,extended release 40 meq PO QDAY #180 tablet 01/02/21 [Rx Last Taken Unknown] ramipril 2.5 mg capsule 2.5 mg PO BID #180 cap 03/22/21 [Rx Last Taken Unknown] ticagrelor 90 mg tablet 90 mg PO BID #60 tablet 03/22/21 [Rx Last Taken Unknown] trazodone 50 mg tablet 50 mg PO DAILY 03/22/21 [History Last Taken Unknown] Allergy/AdvReac Type Severity Reaction Status Date / Time No Known Allergies Allergy Verified 05/09/21 18:41 Family History Mother CAD (coronary artery disease) Father CVA (cerebral vascular accident) Myocardial infarction Brother CAD (coronary artery disease) Hx of CABG Brother CAD (coronary artery disease) Hx of CABG Other Family history of CVA Surgical History Postsurgical aortocoronary bypass status (~06/01/05) Presence of stent in coronary artery (~10/15/13) Status post right rotator cuff repair Social History Smoking Status: Former smoker ROS Constitutional Constitutional: Denies anorexia or fatigue ENT HEENT: Reports dysphagia Cardiovascular Cardiovascular: Denies chest pain Respiratory/Chest Respiratory/Chest: Denies cough Gastrointestinal Gastrointestinal: Reports vomiting; Denies abdominal pain, diarrhea or hematemesis Vital Signs Vital Signs Vital Signs: 05/09/21 18:39 05/09/21 19:32 05/09/21 20:20 Temperature 97.6 F L 97.6 F L Temperature Source Temporal Temporal Pulse Rate 69 69 Respiratory Rate 15 15 Respiratory Effort Normal Respiratory Pattern Normal Blood Pressure 129/66 H 129/66 H Blood Pressure Mean 87 87 Pulse Ox 96 96 Oxygen Delivery Method Room Air Room Air Weight Weight: 295 lb Body Mass Index (BMI) 40.0 Physical Exam Const oriented x3 Resp normal respiratory effort Cardio regular rate and regular rhythm GI normal to inspection, nondistended, normoactive bowel sounds Assessment & Plan Assessment/Plan (1) Esophageal foreign body: QUALIFIERS: Encounter type: initial encounter Qualified Code(s): T18.108A - Unspecified foreign body in esophagus causing other injury, initial encounter PLAN: Patient feels the food is stuck in his esophagus and he is not able to swallow his secretions. I recommended EGD with removal of foreign body. I discussed this with him in detail. I discussed the risks include modality of bleeding, perforation of GI tract, aspiration, heart attack or stroke due to anesthesia. The patient understands the risk and was willing to proceed with EGD. The patient was taken to the operating room and placed under general anesthesia and the foreign body was advanced into the stomach. The GE junction was inspected and it was the cause of the obstruction. It appeared that he had intrinsic stenosis due to likely reflux. It did not appear malignant. The stomach was suctioned and he was awoken and taken to PACU in stable condition and will be admitted overnight to recover from anesthesia and will be discharged home in the morning. Arun Denny MD Pager: [facility] [address] [place] [address] [address] [place] [address] Office:
--- NOTE | 2021-05-09 20:34 | PCM.OPRPT ---
Problems Associated Problem List Diagnoses (1) Esophageal foreign body: Report of Operation Date of Procedure: 05/09/21 Pre-Operative Diagnosis: Esophageal food impaction Post-Operative Diagnosis: Same Surgery/Procedure Performed:: EGD with advancement of esophageal food into the stomach Description of Procedure: Patient was brought back to the operating room and general anesthesia was induced and the patient was intubated. A bite block was placed and a well-lubricated EGD scope was placed into the esophagus and the food bolus was identified in the distal esophagus. The food bolus appeared soft and it was easily advanced into the stomach using the scope. The stomach was inspected and contained the food bolus. The scope was removed back to the proximal esophagus and the entire esophagus was inspected once more. Patient had benign intrinsic appearing stenosis of the GE junction with no malignancy identified. There was no remaining food bolus in the esophagus at the end of the procedure. The scope was advanced into the duodenum and there were no abnormalities. The stomach was suctioned and the scope was removed. The patient was then awoken and taken to PACU in stable condition.
[2021-05-09] MEDS: traZODone 50 MG Tablet PO (22:39)
[2021-05-09] MEDS: Gabapentin 300 MG Capsule PO (22:39)
[2021-05-09] MEDS: Aspirin 81 MG TAB.CHEW PO (22:39)
[2021-05-09] MEDS: Temazepam 15 MG Capsule PO (22:43)
[2021-05-10 01:59] VITALS: BP 99/53; PULSE 70; RESP 18; TEMP 36.6; O2SAT 95
[2021-05-10 05:16] VITALS: BP 111/53; PULSE 71; RESP 18; TEMP 36.4; O2SAT 95
[2021-05-10] MEDS: 0.9% Saline Lock 10 ML Syringe IV (05:19)
--- NOTE | 2021-05-10 07:16 | PCM.DC.SUM ---
Providers Date of Admission: 05/09/21 Primary Care Physician: Dr. Speedy Boswell MD Reason For Visit: FOOD IMPACTION OF ESOPHAGUS Diagnosis Discharge Diagnosis (1) Esophageal foreign body: Status: Acute Code(s): T18.108A - Unspecified foreign body in esophagus causing other injury, initial encounter Qualifiers: Encounter type: initial encounter Qualified Code(s): T18.108A - Unspecified foreign body in esophagus causing other injury, initial encounter Medications at Discharge Home Medications aspirin 81 mg PO QHS 06/09/17 bupropion HCl 150 mg tablet,12 hr sustained-release 150 mg PO BID 01/08/18 loratadine 10 mg PO DAILY 12/26/19 pantoprazole 40 mg tablet,delayed release 40 mg PO DAILY #30 tablet 01/08/20 carvedilol 25 mg tablet 25 mg PO BID #180 tablet 05/11/20 isosorbide mononitrate 60 mg tablet,extended release 24 hr 60 mg PO BID #180 tablet 06/06/20 atorvastatin 80 mg tablet 80 mg PO QHS 09/21/20 gabapentin 300 mg capsule 300 mg PO QHS 09/21/20 temazepam 15 mg capsule 15 mg PO QHS PRN 09/21/20 furosemide 40 mg tablet 40 mg PO BID #180 tablet 11/05/20 potassium chloride 20 mEq tablet,extended release 40 meq PO QDAY #180 tablet 01/02/21 ramipril 2.5 mg capsule 2.5 mg PO BID #180 cap 03/22/21 trazodone 50 mg tablet 50 mg PO QHS 03/22/21 clopidogrel [Plavix] 75 mg PO DAILY 05/09/21 Hospital Course Summary of Care Provided Hospital Course: Patient was admitted to the emergency room with food lodged in his esophagus. He was taken to the operating room and EGD was performed and the food was advanced into his stomach. The patient was then admitted overnight to recover from anesthesia and he is doing well this morning tolerating diet will be discharged home. Physical Exam Const oriented x3 and no apparent distress Resp normal respiratory effort Cardio regular rate and regular rhythm GI soft to palpation and non-tender Weight / BMI Weight Weight: 291 lb 0.163 oz Body Mass Index (BMI) 39.4 D/C Instructions Discharge Diet: Soft diet Please Follow Up With: Arun Denny MD When: as needed [phone] Meaningful Use Info Meaningful Use Diagnoses (Choose all that apply): None applicable Discharge Plan Admission Admit Date/Time: 05/09/21 20:39 Attending Provider: Arun Denny Primary Care Provider: Speedy Boswell Discharge Orders/Prescriptions Prescriptions: Continued bupropion HCl 150 mg tablet extended release 12 hr 150 mg PO BID RF: 0 pantoprazole 40 mg tablet,delayed release (DR/EC) 40 mg PO DAILY Qty: 30 RF: 11 gabapentin 300 mg capsule 300 mg PO QHS RF: 0 atorvastatin 80 mg tablet 80 mg PO QHS RF: 0 temazepam 15 mg capsule 15 mg PO QHS PRN (Reason: Sleep) RF: 0 trazodone 50 mg tablet 50 mg PO QHS RF: 0 ramipril 2.5 mg capsule 2.5 mg PO BID Qty: 180 RF: 4 aspirin 81 MG tablet,chewable 81 mg PO QHS RF: 0 loratadine 10 MG tablet 10 mg PO DAILY RF: 0 clopidogrel [Plavix] 75 mg Tablet 75 mg PO DAILY RF: 0 carvedilol 25 mg tablet 25 mg PO BID Qty: 180 RF: 3 isosorbide mononitrate 60 mg tablet extended release 24 hr 60 mg PO BID Qty: 180 RF: 3 furosemide 40 mg tablet 40 mg PO BID Qty: 180 RF: 3 potassium chloride 20 mEq tablet extended release 40 meq PO QDAY Qty: 180 RF: 3 Referrals / Follow Up: Speedy Boswell MD [Primary Care Provider] - Disposition Disposition (needs filled in before D/C Order can be placed): Home, self care
[2021-05-10 08:00] VITALS: BP 150/89; PULSE 79; RESP 18; TEMP 36.7; O2SAT 96
--- NOTE | 2021-05-10 09:11 | PHA.DC.MR ---
Pharmacy Service has performed discharge medication reconciliation for this patient. The patient's discharge medication list was reviewed for discrepancies and discrepancies were resolved. Home Medications aspirin 81 mg PO QHS 06/09/17 bupropion HCl 150 mg tablet,12 hr sustained-release 150 mg PO BID 01/08/18 loratadine 10 mg PO DAILY 12/26/19 pantoprazole 40 mg tablet,delayed release 40 mg PO DAILY #30 tablet 01/08/20 carvedilol 25 mg tablet 25 mg PO BID #180 tablet 05/11/20 isosorbide mononitrate 60 mg tablet,extended release 24 hr 60 mg PO BID #180 tablet 06/06/20 atorvastatin 80 mg tablet 80 mg PO QHS 09/21/20 gabapentin 300 mg capsule 300 mg PO QHS 09/21/20 temazepam 15 mg capsule 15 mg PO QHS PRN 09/21/20 furosemide 40 mg tablet 40 mg PO BID #180 tablet 11/05/20 potassium chloride 20 mEq tablet,extended release 40 meq PO QDAY #180 tablet 01/02/21 ramipril 2.5 mg capsule 2.5 mg PO BID #180 cap 03/22/21 trazodone 50 mg tablet 50 mg PO QHS 03/22/21 clopidogrel [Plavix] 75 mg PO DAILY 05/09/21
== END 2021-05-10 09:25 | disposition home or self-care (01) ==
LOC: ED 20:02 → MS3 21:21
PROVIDERS: Admitting Provider Surgery; Emergency Provider Emergency Medicine; PCP Family Medicine; Visit Provider Surgery
PROC: 0DJ08ZZ Inspection of Upper Intestinal Tract, Via Natural or Artificial Opening Endoscopic (ICD-10-PCS; CPT 43235; principal; 2021-05-09 17:30)
DX: T18.128A Food in esophagus causing other injury, initial encounter (principal); X58.XXXA Exposure to other specified factors, initial encounter; I25.10 Atherosclerotic heart disease of native coronary artery without angina pectoris; I25.5 Ischemic cardiomyopathy; I11.0 Hypertensive heart disease with heart failure; I50.22 Chronic systolic (congestive) heart failure; K21.9 Gastro-esophageal reflux disease without esophagitis; F32.9 Major depressive disorder, single episode, unspecified; E66.01 Morbid (severe) obesity due to excess calories; E78.2 Mixed hyperlipidemia; H91.93 Unspecified hearing loss, bilateral; I25.2 Old myocardial infarction; G47.30 Sleep apnea, unspecified; Z87.891 Personal history of nicotine dependence; Z89.611 Acquired absence of right leg above knee; Z79.899 Other long term (current) drug therapy; Z79.82 Long term (current) use of aspirin; Z79.02 Long term (current) use of antithrombotics/antiplatelets; Z68.41 Body mass index [BMI] 40.0-44.9, adult; Z95.810 Presence of automatic (implantable) cardiac defibrillator
CPT/HCPCS: 43247; 99218; 99284; 99406; J7120; A4216; G0378; J2405

== ENCOUNTER 2021-05-23 16:47 | Emergency (ER) | payer MEDICARE, SELFPAY ==
[2021-05-09 21:12] VITALS: BMI 39.4
[2021-05-23 16:48] VITALS: BP 146/84; PULSE 79; RESP 18; TEMP 36.8; O2SAT 96; BMI 43.9
--- NOTE | 2021-05-23 16:49 | EDS_ITS ---
HPI History of Present Illness Chief Complaint: Upper Extremity Injury Narrative Narrative: 66-year-old male presents with left arm pain after falling while going down a ramp with his Rollator. States he had immediate pain to his left arm. States he tried to lift up his arm and the bottom portion was hanging. Denies any head injury or loss of consciousness. Patient is on Plavix for coronary artery disease. [facility] Medical History Above knee amputation of right lower extremity Acute lymphangitis of right lower extremity Alcohol abuse Atherosclerosis of coronary artery bypass graft without angina pectoris Atherosclerotic heart disease of [place] coronary artery without angina pectoris CAD (coronary artery disease) Cancer Chronic Systolic CHF - EF 45% Chronic systolic congestive heart failure CPAP (continuous positive airway pressure) dependence Debility Depression Effects of radiation Essential hypertension Family history of CVA Former smoker Gastroenteritis GERD (gastroesophageal reflux disease) GERD (gastroesophageal reflux disease) Hearing loss, left Hearing loss, right History of 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 History of tobacco abuse ICD (implantable cardioverter-defibrillator) in place (~08/17/10) Ischemic cardiomyopathy 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 on left side care home use of drug Lymphedema of Right Leg Lymphedema of right lower extremity Mixed hyperlipidemia Morbid obesity with BMI of 40.0-44.9, adult Myocardial infarct Obesity (BMI 30-39.9) Pacemaker Shortness of breath SIRS (systemic inflammatory response syndrome) Sleep apnea Surgical wound dehiscence TIA (transient ischemic attack) Home Medications aspirin 81 mg PO QHS 06/09/17 [History Last Taken 05/08/21 17:00] bupropion HCl 150 mg tablet,12 hr sustained-release 150 mg PO BID 01/08/18 [History Last Taken 05/09/21 17:00] loratadine 10 mg PO DAILY 12/26/19 [History Last Taken 05/09/21 08:00] pantoprazole 40 mg tablet,delayed release 40 mg PO DAILY #30 tablet 01/08/20 [Rx Last Taken 05/09/21 08:00] carvedilol 25 mg tablet 25 mg PO BID #180 tablet 05/11/20 [Rx Last Taken 05/09/21 17:00] isosorbide mononitrate 60 mg tablet,extended release 24 hr 60 mg PO BID #180 tablet 06/06/20 [Rx Last Taken 05/09/21 17:00] atorvastatin 80 mg tablet 80 mg PO QHS 09/21/20 [History Last Taken 05/09/21 17:00] gabapentin 300 mg capsule 300 mg PO QHS 09/21/20 [History Last Taken 05/08/21 23:00] temazepam 15 mg capsule 15 mg PO QHS PRN 09/21/20 [History Last Taken 05/08/21 23:00] furosemide 40 mg tablet 40 mg PO BID #180 tablet 11/05/20 [Rx Last Taken 05/09/21 17:00] potassium chloride 20 mEq tablet,extended release 40 meq PO QDAY #180 tablet 01/02/21 [Rx Last Taken 05/09/21 08:00] ramipril 2.5 mg capsule 2.5 mg PO BID #180 cap 03/22/21 [Rx Last Taken 05/09/21 17:00] trazodone 50 mg tablet 50 mg PO QHS 03/22/21 [History Last Taken 05/08/21 23:00] clopidogrel [Plavix] 75 mg PO DAILY 05/09/21 [History Last Taken 05/09/21 08:00] Allergy/AdvReac Type Severity Reaction Status Date / Time No Known Allergies Allergy Verified 05/23/21 16:48 Family History Mother CAD (coronary artery disease) Father CVA (cerebral vascular accident) Myocardial infarction Brother CAD (coronary artery disease) Hx of CABG Brother CAD (coronary artery disease) Hx of CABG Other Family history of CVA Surgical History Postsurgical aortocoronary bypass status (~06/01/05) Presence of stent in coronary artery (~10/15/13) Status post right rotator cuff repair Social History Smoking Status: Former smoker ROS ROS ED Constitutional Constitutional ED: Denies chills, fever(s) or sweats Eyes Eyes: Denies blurry vision, change in vision or diplopia ENT ENT ED: Denies rhinorrhea or sore throat Cardiovascular Cardiovascular: Denies chest pain, orthopnea, palpitations or racing heartbeat Respiratory/Chest Respiratory/Chest: Denies cough, dyspnea, dyspnea on exertion, orthopnea or sputum Gastrointestinal Gastrointestinal: Denies abdominal pain, constipation, diarrhea, melena, nausea or vomiting Genitourinary Genitourinary ED: Denies dysuria, hematuria or urinary frequency Musculoskeletal Musculoskeletal: Reports myalgias; Denies arthralgias or neck pain Integumentary Denies rash Neurologic Neurologic: Denies headache(s), paresthesias or weakness Psychiatric Psychiatric: Denies anxiety or depression Hematologic/Lymphatic Hematologic/Lymphatic: Denies easy bleeding or easy bruising Allergic/Immunologic Allergic/Immunologic ED: Denies mouth swelling or tongue swelling EXAM Physical Exam Const Positive well nourished and well developed General Appearance ED: well developed HEENT Reports TM's clear and moist mucous membranes normocephalic and atraumatic Tympanic Membrane ED: Yes TM's clear Eyes PERRL and EOMs intact bilaterally Neck no lymphadenopathy, supple and no JVD Chest Wall inspection of chest normal Resp normal respiratory effort and clear to auscultation bilaterally Cardio regular rate, S1 normal heart sound, S2 normal heart sound and no murmurs Peripheral Pulses: pulses 2+ throughout GI soft to palpation, non-tender and non-distended Back/Spine no CVA tenderness and no thoracic nor lumbar tenderness Extremity Extremity Narrative: Obvious deformity to left midshaft humerus. Skin closed over this deformity. Strong palpable pulses. Sensation intact. General Extremety ED: Negative for tenderness Neuro oriented x3, CN's II-XII intact bilaterally and no sensory deficits noted Sensorium / Orientation: alert Motor Exam: strength 5/5 throughout Psych mental status grossly normal Skin no rashes or lesions noted MDM MDM MDM Narrative Medical decision making narrative: Patient appears well nontoxic. No evidence of head injury. Neurovascular intact in the left upper extremity. Strong palpable pulses. Sensation intact. X-ray shows distal third humerus fracture with displacement and another fracture line extending in the distal fragment towards the condyles. Patient treated with narcotic pain medication. Lab work within normal limits. Spoke with orthopedic surgery at [facility] who advised transfer to a trauma facility. Spoke with Dr. Huff at [facility] who is agreeable with transfer. Patient transferred in stable condition. Discharge Plan Triage Chief Complaint: Upper Extremity Injury ED Provider: Gutierrez Ashley Dx/Rx/DC Orders Clinical Impression: Fall, Fracture, humerus Prescriptions: No Action bupropion HCl 150 mg tablet extended release 12 hr 150 mg PO BID RF: 0 pantoprazole 40 mg tablet,delayed release (DR/EC) 40 mg PO DAILY Qty: 30 RF: 11 gabapentin 300 mg capsule 300 mg PO QHS RF: 0 atorvastatin 80 mg tablet 80 mg PO QHS RF: 0 temazepam 15 mg capsule 15 mg PO QHS PRN (Reason: Sleep) RF: 0 trazodone 50 mg tablet 50 mg PO QHS RF: 0 ramipril 2.5 mg capsule 2.5 mg PO BID Qty: 180 RF: 4 aspirin 81 MG tablet,chewable 81 mg PO QHS RF: 0 loratadine 10 MG tablet 10 mg PO DAILY RF: 0 clopidogrel [Plavix] 75 mg Tablet 75 mg PO DAILY RF: 0 carvedilol 25 mg tablet 25 mg PO BID Qty: 180 RF: 3 isosorbide mononitrate 60 mg tablet extended release 24 hr 60 mg PO BID Qty: 180 RF: 3 furosemide 40 mg tablet 40 mg PO BID Qty: 180 RF: 3 potassium chloride 20 mEq tablet extended release 40 meq PO QDAY Qty: 180 RF: 3 Primary Care Provider: Speedy Boswell Referrals: Speedy Boswell MD [Primary Care Provider] - Disposition Disposition: Acute Care Hospital Discharge Location: [facility]
[2021-05-23] MEDS: morphine 10 MG/ML Syringe 4 MG SC (16:58)
--- NOTE | 2021-05-23 17:08 | RAD_ITS ---
STUDY: X-RAY - LEFT HUMERUS REASON FOR EXAM: Male, 66 years old. left arm pain TECHNIQUE: 2 view(s) of the humerus. COMPARISON: None. FINDINGS: An acute oblique fracture is present through the distal one third humeral shaft with medial displacement of the distal fracture fragment. A second nondisplaced vertical fractures present through the central region of the distal one third humeral shaft terminating just above the intercondylar region. Normal glenohumeral articulation. Left chest cardiac device partially visualized. There is no demonstrated soft tissue abnormality. RAD/Humerus min 2 Views IMPRESSION: Acute fractures of the distal one third humeral shaft Electronically Signed: Ricardo Keller MD at 18:06 EDT , Service support ,
[2021-05-23] MEDS: HYDROmorphone 0.5 MG/0.5 ML SYRINGE IV ×2 (19:06→20:59)
[2021-05-23 19:20] LABS: Absolute Lymphocyte Count 0.93 X10^3/uL (0.83-4.51); Basophil# 0.05 X10^3/uL; Basophil% 0.5 % (0-1); Eosinophil# 0.18 X10^3/uL; Eosinophils% 1.9 % (0-5); Hematocrit 41.8 % (40-54); Hemoglobin 13.9 g/dL (13.0-16.5); Lymphocyte # 0.93 X10^3/ul (0.83-4.51); Lymphocyte % 9.7 % (19-41); Mean Corp Hgb Conc 33.3 g/dL (32-36); Mean Corpuscular Volume 90.1 fL (80-94); Mean Platelet Vol. 9.7 fl (6.2-12.0); Monocyte% 4.2 % (0-10); NRBC Flagged by Analyzer 0 % (0-5); Neutrophil # 7.98 X10^3/uL (2.7-7.7); Neutrophil % 83.1 % (47-70); Platelet Count 206 K/mm3 (150-450); RBC Distribution Width CV 13.2 % (11.6-14.6); RBC Distribution Width SD 43.7 fl (35.1-43.9); Red Blood Count 4.64 M/mm3 (4.6-6.2); White Blood Count 9.6 K/mm3 (4.4-11.0)
[2021-05-23 19:29] VITALS: BP 138/72; PULSE 72; RESP 16; O2SAT 97
[2021-05-23 19:51] LABS: Anion Gap 6 (5-15); BUN 15 mg/dL (7-18); Calcium,Total 9.3 mg/dL (8.5-10.1); Chloride 110 mmol/L (98-107); Creatinine, Serum 1.25 mg/dL (0.70-1.30); EST Glomerular Filtration Rate 61 mL/min (>60); Est Glom Filt Rate - Afr Amer 74 mL/min (>60); Estimated Creatinine Clearance 60.02 ml/min; Glucose 108 mg/dL (74-106); Potassium 4.6 mmol/L (3.5-5.1); Sodium Level 142 mmol/L (136-145)
== END 2021-05-23 22:12 | disposition short-term general hospital (02) ==
PROVIDERS: Emergency Provider Emergency Medicine; PCP Family Medicine
DX: S42.302A Unspecified fracture of shaft of humerus, left arm, initial encounter for closed fracture (principal); W10.2XXA Fall (on)(from) incline, initial encounter; Y93.9 Activity, unspecified; Y92.89 Other specified places as the place of occurrence of the external cause; Y99.9 Unspecified external cause status; I25.10 Atherosclerotic heart disease of native coronary artery without angina pectoris; E78.2 Mixed hyperlipidemia; F32.9 Major depressive disorder, single episode, unspecified; I11.0 Hypertensive heart disease with heart failure; I25.5 Ischemic cardiomyopathy; I25.2 Old myocardial infarction; I50.22 Chronic systolic (congestive) heart failure; I89.0 Lymphedema, not elsewhere classified; K21.9 Gastro-esophageal reflux disease without esophagitis; E66.01 Morbid (severe) obesity due to excess calories; Z68.41 Body mass index [BMI] 40.0-44.9, adult; Z79.82 Long term (current) use of aspirin; Z82.3 Family history of stroke; Z87.891 Personal history of nicotine dependence; Z95.0 Presence of cardiac pacemaker; Z86.73 Personal history of transient ischemic attack (TIA), and cerebral infarction without residual deficits
CPT/HCPCS: 73060; 80048; 85025; 99285; A4216

== ENCOUNTER → 2021-06-20 09:15 | Outpatient (CLI) | payer MEDICARE, SELFPAY ==
[2021-05-09 21:12] VITALS: BMI 39.4
[2021-05-23 16:48] VITALS: BMI 43.9
--- NOTE | 2021-06-20 09:19 | RAD_ITS ---
STUDY: X-RAY - ESOPHAGUS (BARIUM SWALLOW) WITH FLUOROSCOPY REASON FOR EXAM: Male, 66 years old. DYSPHAGIA TECHNIQUE: 22 view(s) of the esophagus were obtained following swallowing of barium. FLUOROSCOPY TIME (if supplied): (39 seconds) minutes/seconds COMPARISON: None. FINDINGS: There is no demonstrated esophageal foreign body. There is no demonstrated stricture or mucosal abnormality. Normal gastroesophageal junction, without a demonstrated hiatal hernia. The patient ingested a 12 mm tablet of barium without any difficulty. Incidental note is made of a 1.1 cm x 0.9 cm diverticulum in the lateral aspect of the second portion of the duodenum. There is atherosclerotic tortuosity of the aortic arch and descending thoracic aorta. Normal visualized pulmonary parenchyma. Normal visualized osseous structures of the thorax. RAD/Esophagus Dual Contrast IMPRESSION: 1.1 cm x 0.9 cm diverticulum in the lateral aspect of the second portion of the duodenum. Electronically Signed: Alex Walls MD at 10:15 EDT , Service support ,
== END ==
PROVIDERS: PCP Family Medicine; Referring Provider Internal Medicine Gastroenterology; Visit Provider Internal Medicine Gastroenterology
DX: R13.10 Dysphagia, unspecified (principal)
CPT/HCPCS: 74221

== ENCOUNTER 2021-09-17 21:09 | Emergency (ER) | payer MEDICARE, SELFPAY ==
[2021-09-17 21:10] VITALS: BP 135/66; PULSE 86; PULSE 90; RESP 22; RESP 26; TEMP 36.6; O2SAT 96; BMI 43.7
[2021-09-17 21:15] VITALS: O2SAT 96
--- NOTE | 2021-09-17 22:01 | RAD_ITS ---
INDICATION: Dyspnea EXAMINATION/TECHNIQUE: X-RAY - XR Chest 1 View COMPARISON: 02/18/2021. FINDINGS: The lungs are clear. The heart is mildly enlarged . Median sternotomy wires present. Left-sided cardiac device. No pleural effusion or pneumothorax. No acute osseous abnormalities. RAD/Chest 1 View (Portable) IMPRESSION: No acute radiographic abnormalities. Electronically Signed: Bird Stuart MD at 22:15 EDT Tel , Service support ,
[2021-09-17 22:17] VITALS: BP 120/85; PULSE 76; RESP 22; O2SAT 94
[2021-09-17] MEDS: Ipratropium/Albuterol Sulfate 3 ML AMPUL.NEB INHALATION (22:18)
[2021-09-17 22:19] VITALS: PULSE 78; RESP 16
--- NOTE | 2021-09-17 23:04 | EDS_ITS ---
HPI History of Present Illness Chief Complaint: Cough Informant: patient Onset/Context/Timing Onset: Today Context: sudden Timing: Continuous Quality: Positive for Wheezing Worsened by: Nothing Relieved by: Oxygen Associated Symptoms cough and rhinorrhea; Negative for post nasal drip, ear pain, fever, sore throat, subjective, chills, sweats, clear sputum, white sputum, yellow sputum or green sputum Narrative Narrative: Patient presents with shortness of breath that began today. Patient states he used a De[employer] insect fogger in his bathroom. Patient states that he thought the fogger was done. He went into the bathroom and turned on the exhaust fan. Patient states he picked up the fogger and there was still some smoke coming out of the father and he accidentally inhaled this. Patient states he feels like he has a scratchy throat. Patient states he feels wheezing. Patient states the oxygen helped while he was in the ambulance on the way to the emergency department. Patient admits to a cough but denies any sputum production. Patient admits to some rhinorrhea. Patient denies any fevers or chills. Patient denies any chest pain. [facility] Medical History Above knee amputation of right lower extremity Acute lymphangitis of right lower extremity Alcohol abuse Atherosclerosis of coronary artery bypass graft without angina pectoris Atherosclerotic heart disease of [place] coronary artery without angina pectoris CAD (coronary artery disease) Cancer Chronic Systolic CHF - EF 45% Chronic systolic congestive heart failure CPAP (continuous positive airway pressure) dependence Debility Depression Effects of radiation Essential hypertension Family history of CVA Former smoker Gastroenteritis GERD (gastroesophageal reflux disease) GERD (gastroesophageal reflux disease) Hearing loss, left Hearing loss, right History of 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 History of tobacco abuse ICD (implantable cardioverter-defibrillator) in place (~08/17/10) Ischemic cardiomyopathy 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 on left side residential use of drug Lymphedema of Right Leg Lymphedema of right lower extremity Mixed hyperlipidemia Morbid obesity with BMI of 40.0-44.9, adult Myocardial infarct Obesity (BMI 30-39.9) Pacemaker Shortness of breath SIRS (systemic inflammatory response syndrome) Sleep apnea Surgical wound dehiscence TIA (transient ischemic attack) Home Medications aspirin 81 mg PO QHS 06/09/17 [History Last Taken 05/08/21 17:00] bupropion HCl 150 mg tablet,12 hr sustained-release 150 mg PO BID 01/08/18 [History Last Taken 05/09/21 17:00] loratadine 10 mg PO DAILY 12/26/19 [History Last Taken 05/09/21 08:00] pantoprazole 40 mg tablet,delayed release 40 mg PO DAILY #30 tablet 01/08/20 [Rx Last Taken 05/09/21 08:00] gabapentin 300 mg capsule 300 mg PO QHS 09/21/20 [History Last Taken 05/08/21 23:00] temazepam 15 mg capsule 15 mg PO QHS PRN 09/21/20 [History Last Taken 05/08/21 23:00] furosemide 40 mg tablet 40 mg PO BID #180 tablet 11/05/20 [Rx Last Taken 05/09/21 17:00] ramipril 2.5 mg capsule 2.5 mg PO BID #180 cap 03/22/21 [Rx Last Taken 05/09/21 17:00] trazodone 50 mg tablet 50 mg PO QHS 03/22/21 [History Last Taken 05/08/21 23:00] carvedilol 25 mg tablet 25 mg PO BID #180 tablet 08/15/21 [Rx Last Taken Unknown] clopidogrel 75 mg tablet 75 mg PO DAILY #90 tab 08/24/21 [Rx Last Taken Unknown] isosorbide mononitrate 60 mg tablet,extended release 24 hr 60 mg PO BID #180 tablet 08/24/21 [Rx Last Taken Unknown] atorvastatin 80 mg tablet 80 mg PO QHS #90 tab 09/07/21 [Rx Last Taken Unknown] potassium chloride 20 mEq tablet,extended release 40 meq PO QDAY #180 tablet 09/07/21 [Rx Last Taken Unknown] Allergy/AdvReac Type Severity Reaction Status Date / Time No Known Allergies Allergy Verified 08/31/21 13:39 Family History Mother CAD (coronary artery disease) Father CVA (cerebral vascular accident) Myocardial infarction Brother CAD (coronary artery disease) Hx of CABG Brother CAD (coronary artery disease) Hx of CABG Other Family history of CVA Surgical History Postsurgical aortocoronary bypass status (~06/01/05) Presence of stent in coronary artery (~10/15/13) Status post right rotator cuff repair Social History Smoking Status: Former smoker ROS ROS ED Constitutional Constitutional ED: Denies chills or fever(s) Eyes Eyes: Denies blurry vision or change in vision ENT ENT ED: Denies rhinorrhea or sore throat Cardiovascular Cardiovascular: Denies chest pain or palpitations Respiratory/Chest Respiratory/Chest: Reports cough and dyspnea Gastrointestinal Gastrointestinal: Denies nausea or vomiting Genitourinary Genitourinary ED: Denies dysuria or hematuria Musculoskeletal Musculoskeletal: Denies back pain or neck pain Integumentary Denies abscess or rash Neurologic Neurologic: Denies headache(s) or weakness Allergic/Immunologic Allergic/Immunologic ED: Denies mouth swelling or urticaria EXAM Physical Exam Const Vital Signs: 09/17/21 21:10 09/17/21 21:15 09/17/21 22:17 Temperature 97.8 F Temperature Source Oral Pulse Rate 86 76 Respiratory Rate 26 H 22 H Respiratory Effort Normal Blood Pressure 135/66 H 120/85 H Blood Pressure Mean 89 96 Pulse Ox 96 94 Oxygen Delivery Method Room Air Room Air Room Air 09/17/21 22:19 09/17/21 23:11 Temperature Temperature Source Pulse Rate 78 80 Respiratory Rate 16 18 Respiratory Effort Blood Pressure 119/70 Blood Pressure Mean 86 Pulse Ox 96 Oxygen Delivery Method Room Air Positive well nourished and well developed General Appearance ED: well developed HEENT Reports moist mucous membranes Neck supple and no JVD Resp normal respiratory effort Auscultation: wheezes expiratory wheezes and throughout Cardio regular rate and regular rhythm GI non-tender and non-distended Auscultation: normoactive bowel sounds Palpation: soft Neuro oriented x3, CN's II-XII intact bilaterally and no sensory deficits noted Sensorium / Orientation: alert Motor Exam: strength 5/5 throughout Psych mental status grossly normal MDM MDM MDM Narrative Medical decision making narrative: Patient was given a DuoNeb aerosol here. Portable 1 view chest x-ray was obtained. On my interpretation, lung dotson are clear. There is normal cardiac silhouette. Bony thorax is normal. There is no acute process noted. Radiologist also interpreted the x-ray and agrees. Patient was feeling better on reevaluation. Patient was instructed drink plenty of fluids. Patient was instructed to follow-up with his primary care physician in 5 to 7 days. Patient understood and was agreeable with the plan. All questions were answered. Radiography Chest X-Ray - ED: 1 View, Read by ED Physician, Read by Radiologist and Normal Diagnostic Testing: Clinical Impression(s) from Imaging Studies Chest X-Ray 09/17/21 22:01 IMPRESSION: No acute radiographic abnormalities. Electronically Signed: Bird Stuart MD at 22:15 EDT Tel , Service support , Discharge Plan Triage Chief Complaint: Cough ED Provider: Paco Mcwilliams Dx/Rx/DC Orders Clinical Impression: Dyspnea Instructions: ED Dyspnea Prescriptions: No Action bupropion HCl 150 mg tablet extended release 12 hr 150 mg PO BID RF: 0 pantoprazole 40 mg tablet,delayed release (DR/EC) 40 mg PO DAILY Qty: 30 RF: 11 gabapentin 300 mg capsule 300 mg PO QHS RF: 0 temazepam 15 mg capsule 15 mg PO QHS PRN (Reason: Sleep) RF: 0 trazodone 50 mg tablet 50 mg PO QHS RF: 0 ramipril 2.5 mg capsule 2.5 mg PO BID Qty: 180 RF: 4 aspirin 81 MG tablet,chewable 81 mg PO QHS RF: 0 loratadine 10 MG tablet 10 mg PO DAILY RF: 0 furosemide 40 mg tablet 40 mg PO BID Qty: 180 RF: 3 carvedilol 25 mg tablet 25 mg PO BID Qty: 180 RF: 3 isosorbide mononitrate 60 mg tablet extended release 24 hr 60 mg PO BID Qty: 180 RF: 3 clopidogrel [Plavix] 75 mg tablet 75 mg PO DAILY Qty: 90 RF: 3 atorvastatin 80 mg tablet 80 mg PO QHS Qty: 90 RF: 3 potassium chloride 20 mEq tablet extended release 40 meq PO QDAY Qty: 180 RF: 3 Primary Care Provider: Speedy Boswell Referrals: Speedy Boswell MD [Primary Care Provider] - 3-5 Days Disposition Disposition: Home, Self Care Discharge Date/Time: 09/17/21 23:16
[2021-09-17 23:11] VITALS: BP 119/70; PULSE 80; PULSE 86; RESP 18; RESP 19; O2SAT 96
== END 2021-09-17 23:16 | disposition home or self-care (01) ==
PROVIDERS: Emergency Provider Emergency Medicine; PCP Family Medicine
DX: R06.00 Dyspnea, unspecified (principal); R05.9 Cough, unspecified; E66.01 Morbid (severe) obesity due to excess calories; E78.2 Mixed hyperlipidemia; F32.A Depression, unspecified; Z86.73 Personal history of transient ischemic attack (TIA), and cerebral infarction without residual deficits; G47.30 Sleep apnea, unspecified; I11.0 Hypertensive heart disease with heart failure; I25.2 Old myocardial infarction; I25.5 Ischemic cardiomyopathy; I25.10 Atherosclerotic heart disease of native coronary artery without angina pectoris; I50.22 Chronic systolic (congestive) heart failure; I89.0 Lymphedema, not elsewhere classified; K21.9 Gastro-esophageal reflux disease without esophagitis; Z68.41 Body mass index [BMI] 40.0-44.9, adult; Z79.82 Long term (current) use of aspirin; Z82.3 Family history of stroke; Z95.0 Presence of cardiac pacemaker; Z87.891 Personal history of nicotine dependence
CPT/HCPCS: 71045; 94640; 99284

== ENCOUNTER 2021-12-12 16:55 | Outpatient (CLI) | payer MEDICARE, SELFPAY | END 2021-12-12 23:59 | disposition short-term general hospital (02) | PROVIDERS: PCP Family Medicine; Referring Provider Family Medicine; Visit Provider Family Medicine | DX: U07.1 COVID-19 (principal) | CPT/HCPCS: 87635; U0003; U0005 ==

== ENCOUNTER 2021-12-18 14:27 | Outpatient (CLI) | payer MEDICARE, SELFPAY ==
[2021-12-18 14:40] VITALS: BP 130/77; PULSE 74; RESP 16; TEMP 36.8; O2SAT 98
[2021-12-18 14:45] VITALS: BMI 40.2
[2021-12-18] MEDS: 0.9% Saline Lock 10 ML Syringe IV (14:49)
[2021-12-18 15:29] VITALS: BP 123/61; PULSE 65; RESP 16; TEMP 36.6; O2SAT 96
[2021-12-18 16:21] VITALS: BP 116/74; PULSE 63; RESP 16; TEMP 36.4; O2SAT 97
== END 2021-12-18 23:59 | disposition home or self-care (01) ==
LOC: MS3OUT 14:27 → MS3 14:27
PROVIDERS: PCP Family Medicine; Referring Provider Nurse Practitioner Adult Health; Visit Provider Nurse Practitioner Adult Health
DX: Z23 Encounter for immunization (principal); U07.1 COVID-19
CPT/HCPCS: J7050; M0245; Q0245; A4216

== ENCOUNTER 2022-01-15 20:46 | Emergency (ER) | payer MEDICARE, OTHER, SELFPAY ==
[2022-01-15 20:47] VITALS: BP 114/84; PULSE 71; RESP 15; TEMP 36.7; O2SAT 99; BMI 41.0
[2022-01-15 21:53] LABS: Bacteria 0 SEEN /hpf (None Seen); Mucous, Urine 0 SEEN /hpf (<or=2+); Red Blood Cells-Urine 0 SEEN /hpf (0-5); Squamous Epithelial Cells - UA 0 SEEN /hpf (0-5)
[2022-01-15 21:55] LABS: Color, Urine Yellow (Yellow); Glucose, Dipstick Normal (Normal); Ketone-Dipstick 5 mg/dl (Negative); Leukocyte Esterase-Dipstick 25 /ul (Negative); Nitrite-Dipstick Negative (Negative); Occult Blood-Urine Negative /ul (Negative); Protein-Dipstick Negative (Negative); Specific Gravity, Urine 1.015 (1.002-1.030); Urine Bilirubin Dipstick Negative (Negative); Urine Clarity Clear (Clear); Urine Urobilinogen Normal (Normal)
--- NOTE | 2022-01-15 21:57 | EX.ED.DYSGE1 ---
HPI History of Present Illness Chief Complaint: Flank Pain Informant: patient Onset/Context/Timing Onset: Days (4 days) Context: Gradual Onset Timing: Waxes and wanes Current Severity: Moderate Maximum Severity: Moderate Narrative Narrative: Patient presents with left flank pain. Pain started 3 days ago. He initially thought he had twisted his back and went to the chiropractor. He had minimal improvement. Pain worsened throughout the weekend. He does have a history of previous kidney stones requiring lithotripsy. He called Dr. Holder's office to be seen this week. He was told if the pain worsens to come to the emergency room. [facility] Medical History Above knee amputation of right lower extremity Acute lymphangitis of right lower extremity Alcohol abuse Atherosclerosis of coronary artery bypass graft without angina pectoris Atherosclerotic heart disease of [place] coronary artery without angina pectoris CAD (coronary artery disease) Cancer Chronic Systolic CHF - EF 45% Chronic systolic congestive heart failure CPAP (continuous positive airway pressure) dependence Debility Depression Effects of radiation Essential hypertension Family history of CVA Former smoker Gastroenteritis GERD (gastroesophageal reflux disease) GERD (gastroesophageal reflux disease) Hearing loss, left Hearing loss, right History of 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 History of tobacco abuse ICD (implantable cardioverter-defibrillator) in place (~08/17/10) Ischemic cardiomyopathy 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 on left side 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 Lymphedema of Right Leg Lymphedema of right lower extremity Mixed hyperlipidemia Morbid obesity with BMI of 40.0-44.9, adult Myocardial infarct Obesity (BMI 30-39.9) Pacemaker Shortness of breath SIRS (systemic inflammatory response syndrome) Sleep apnea Surgical wound dehiscence TIA (transient ischemic attack) Home Medications aspirin 81 mg PO QHS 06/09/17 [History Last Taken 05/08/21 17:00] bupropion HCl 150 mg tablet,12 hr sustained-release 150 mg PO BID 01/08/18 [History Last Taken 05/09/21 17:00] loratadine 10 mg PO DAILY 12/26/19 [History Last Taken 05/09/21 08:00] pantoprazole 40 mg tablet,delayed release 40 mg PO DAILY #30 tablet 01/08/20 [Rx Last Taken 05/09/21 08:00] gabapentin 300 mg capsule 300 mg PO QHS 09/21/20 [History Last Taken 05/08/21 23:00] temazepam 15 mg capsule 15 mg PO QHS PRN 09/21/20 [History Last Taken 05/08/21 23:00] trazodone 50 mg tablet 50 mg PO QHS 03/22/21 [History Last Taken 05/08/21 23:00] carvedilol 25 mg tablet 25 mg PO BID #180 tablet 08/15/21 [Rx Last Taken Unknown] clopidogrel 75 mg tablet 75 mg PO DAILY #90 tab 08/24/21 [Rx Last Taken Unknown] isosorbide mononitrate 60 mg tablet,extended release 24 hr 60 mg PO BID #180 tablet 08/24/21 [Rx Last Taken Unknown] atorvastatin 80 mg tablet 80 mg PO QHS #90 tab 09/07/21 [Rx Last Taken Unknown] potassium chloride 20 mEq tablet,extended release 40 meq PO QDAY #180 tablet 09/07/21 [Rx Last Taken Unknown] ramipril 2.5 mg capsule 2.5 mg PO BID #180 cap 10/06/21 [Rx Last Taken Unknown] furosemide 40 mg tablet 40 mg PO BID #180 tablet 11/27/21 [Rx Last Taken Unknown] Allergy/AdvReac Type Severity Reaction Status Date / Time No Known Allergies Allergy Verified 01/15/22 20:47 Family History Mother CAD (coronary artery disease) Father CVA (cerebral vascular accident) Myocardial infarction Brother CAD (coronary artery disease) Hx of CABG Brother CAD (coronary artery disease) Hx of CABG Other Family history of CVA Surgical History Postsurgical aortocoronary bypass status (~06/01/05) Presence of stent in coronary artery (~10/15/13) Status post right rotator cuff repair Social History Smoking Status: Former smoker ROS ROS ED Constitutional Constitutional ED: Denies chills or fever(s) Eyes Eyes: Denies change in vision ENT ENT ED: Denies sore throat Cardiovascular Cardiovascular: Denies chest pain Respiratory/Chest Respiratory/Chest: Denies cough or dyspnea Gastrointestinal Gastrointestinal: Reports abdominal pain; Denies diarrhea, nausea or vomiting Genitourinary Genitourinary ED: Denies dysuria Musculoskeletal Musculoskeletal: Reports back pain Integumentary Denies rash Neurologic Neurologic: Denies headache(s) Allergic/Immunologic Allergic/Immunologic ED: Denies urticaria EXAM Physical Exam Const Vital Signs: 01/15/22 20:47 Temperature 98.0 F Temperature Source Temporal Pulse Rate 71 Respiratory Rate 15 Blood Pressure 114/84 H Blood Pressure Mean 94 Pulse Ox 99 Oxygen Delivery Method Room Air Positive well nourished and well developed General Appearance ED: well developed HEENT Reports moist mucous membranes Eyes PERRL and EOMs intact bilaterally Neck supple Chest Wall inspection of chest normal and palpation of chest normal Resp normal respiratory effort and clear to auscultation bilaterally Cardio regular rhythm GI non-tender Auscultation: hypoactive bowel sounds Palpation: soft Extremity Extremity Narrative: Right BKA Neuro oriented x3 Sensorium / Orientation: alert Skin no rashes or lesions noted MDM MDM MDM Narrative Medical decision making narrative: Patient given morphine and Zofran for pain. Lab work, urinalysis, CT flank ordered. Lab Data Attestation: I reviewed the patient's lab results. Labs: Laboratory Results - last 24 hr 01/15/22 01/15/22 01/15/22 21:01 21:40 21:40 WBC 8.1 RBC 4.96 Hgb 14.8 Hct 44.2 MCV 89.1 MCH 29.8 MCHC 33.5 RDW Std Deviation 42.2 RDW Coeff of Ang 12.9 Plt Count 230 MPV 9.9 Immature Gran % (Auto) 0.900 Neut % (Auto) 62.1 Lymph % (Auto) 24.0 Sully % (Auto) 9.0 Eos % (Auto) 3.4 Baso % (Auto) 0.6 Absolute Neuts (auto) 5.1 Absolute Lymphs (auto) 1.95 Nucleated RBC % 0 Sodium 139 Potassium 3.7 Chloride 110 H Carbon Dioxide 24.0 Anion Gap 5 BUN 17 Creatinine 1.86 H Estim Creat Clear Calc 41.61 Est GFR (MDRD) Af Amer 47 L Est GFR (MDRD) Non-Af 39 L BUN/Creatinine Ratio 9.1 L Glucose 106 Calcium 9.5 Urine Color Yellow Urine Clarity Clear Urine pH 6.0 Ur Specific Krebs 1.015 Urine Protein Negative Urine Glucose (UA) Normal Urine Ketones 5 H Urine Occult Blood Negative Urine Nitrite Negative Urine Bilirubin Negative Urine Urobilinogen Normal Ur Leukocyte Esterase 25 H Urine RBC 0 SEEN Urine WBC 5-10 SEEN Ur Squamous Epith Cells 0 SEEN Urine Bacteria 0 SEEN Urine Mucus 0 SEEN Radiography Diagnostic Testing: Clinical Impression(s) from Imaging Studies Abdomen/Pelvis CT 01/15/22 22:16 IMPRESSION: No acute findings. Bilateral nephrolithiasis without evidence of acute obstruction. Stable left-sided renal cyst Electronically Signed: Archie McdowellDO at 22:36 EST , Treatment and Re-Evaluation Comments:: CT scan reveals no RBCs. Renal function is slightly worsened with a creatinine of 1.86. Appears baseline is around 1.2-1.4. CT flank reveals no acute findings. Bilateral renal stones are noted without evidence of acute obstruction. Test results discussed with the patient. He will continue supportive care at home. If symptoms or not improving in the next 24 to 48 hours he will follow-up with Dr. Holder. Discharge Plan Triage Chief Complaint: Flank Pain ED Provider: Maddy Dodge Dx/Rx/DC Orders Clinical Impression: Left flank pain Instructions: ED Flank Pain, Uncertain Cause Prescriptions: No Action bupropion HCl 150 mg tablet extended release 12 hr 150 mg PO BID RF: 0 pantoprazole 40 mg tablet,delayed release (DR/EC) 40 mg PO DAILY Qty: 30 RF: 11 gabapentin 300 mg capsule 300 mg PO QHS RF: 0 temazepam 15 mg capsule 15 mg PO QHS PRN (Reason: Sleep) RF: 0 trazodone 50 mg tablet 50 mg PO QHS RF: 0 aspirin 81 MG tablet,chewable 81 mg PO QHS RF: 0 loratadine 10 MG tablet 10 mg PO DAILY RF: 0 carvedilol 25 mg tablet 25 mg PO BID Qty: 180 RF: 3 isosorbide mononitrate 60 mg tablet extended release 24 hr 60 mg PO BID Qty: 180 RF: 3 clopidogrel [Plavix] 75 mg tablet 75 mg PO DAILY Qty: 90 RF: 3 atorvastatin 80 mg tablet 80 mg PO QHS Qty: 90 RF: 3 potassium chloride 20 mEq tablet extended release 40 meq PO QDAY Qty: 180 RF: 3 ramipril 2.5 mg capsule 2.5 mg PO BID Qty: 180 RF: 4 furosemide 40 mg tablet 40 mg PO BID Qty: 180 RF: 4 Primary Care Provider: Spedey Boswell Referrals: Ravi Holder MD [STAFF PHYSICIAN] - 3-5 Days if not improving Speedy Boswell MD [Primary Care Provider] - Disposition Disposition: Home, Self Care
[2022-01-15] MEDS: Morphine 4 MG/ML Syringe IV (22:06)
[2022-01-15] MEDS: Ketorolac 15 MG/ML Vial IV (22:06)
[2022-01-15] MEDS: Ondansetron 4 MG/2 ML Vial IV (22:06)
--- NOTE | 2022-01-15 22:16 | CT_ITS ---
STUDY: CT ABDOMEN AND PELVIS WITHOUT CONTRAST REASON FOR EXAM: Male, 66 years old. left flank pain RADIATION DOSAGE (If Supplied By Facility): CTDIvol = ( 23.41 ) mGy, DLP = ( 1251.76 ) mGycm TECHNIQUE: Transaxial images were obtained from the dome of the diaphragm to the symphysis pubis without oral contrast, and without intravenous contrast. Sagittal and coronal images were reconstructed. Individualized dose optimization techniques were used for this CT. COMPARISON: 09/19/2020 FINDINGS: The visualized lung bases are unremarkable. The visualized portions of the heart are within normal limits. Normal liver. Normal gallbladder and extrahepatic biliary system. Normal spleen. Normal pancreas. Normal bilateral adrenal glands. There is mild cortical atrophy of the right kidney, consistent with chronic medical renal disease. There is mild cortical atrophy of the left kidney, consistent with chronic medical renal disease. Right-sided nephrolith measuring 7.2 mm left-sided nephrolith measuring 5.9 mm. Left-sided cyst measuring 3.2 cm. No evidence of acute obstruction. Normal visualized stomach. Normal small intestine. There are multiple colonic diverticula consistent with diverticulosis. The appendix is visualized and appears normal. Normal abdominal aorta. Normal inferior vena cava. Normal retroperitoneum. Normal urinary bladder. There are prostatic calcifications. Normal abdominal wall. Postsurgical changes of the left hip CT/Abdomen/Pelvis without Cont IMPRESSION: No acute findings. Bilateral nephrolithiasis without evidence of acute obstruction. Stable left-sided renal cyst Electronically Signed: Archie Mcdowell DO at 22:36 EST ,
[2022-01-15 22:24] LABS: White Blood Cells 5-10 SEEN /hpf (0-5)
[2022-01-15 23:22] LABS: Anion Gap 5 (5-15); BUN 17 mg/dL (7-18); BUN/Creat Ratio 9.1 RATIO (10-20); Calcium,Total 9.5 mg/dL (8.5-10.1); Chloride 110 mmol/L (98-107); Creatinine, Serum 1.86 mg/dL (0.70-1.30); EST Glomerular Filtration Rate 39 mL/min (>60); Est Glom Filt Rate - Afr Amer 47 mL/min (>60); Estimated Creatinine Clearance 41.61 ml/min; Glucose 106 mg/dL (74-106); Potassium 3.7 mmol/L (3.5-5.1); Sodium Level 139 mmol/L (136-145)
[2022-01-15 23:43] LABS: Absolute Lymphocyte Count 1.95 X10^3/uL (0.83-4.51); Absolute Neutrophil Count 5.1 X10^3/uL (2.0-7.7); Basophil# 0.05 X10^3/uL; Basophil% 0.6 % (0-1); Eosinophil# 0.28 X10^3/uL; Eosinophils% 3.4 % (0-5); Hematocrit 44.2 % (40-54); Hemoglobin 14.8 g/dL (13.0-16.5); Lymphocyte # 1.95 X10^3/ul (0.83-4.51); Mean Corp Hgb Conc 33.5 g/dL (32-36); Mean Corpuscular Hgb 29.8 pg (27.0-32.0); Mean Corpuscular Volume 89.1 fL (80-94); Mean Platelet Vol. 9.9 fl (6.2-12.0); Monocyte# 0.73 X10^3/uL; NRBC Flagged by Analyzer 0 % (0-5); Neutrophil # 5.06 X10^3/uL (2.7-7.7); Neutrophil % 62.1 % (47-70); Platelet Count 230 K/mm3 (150-450); RBC Distribution Width CV 12.9 % (11.6-14.6); RBC Distribution Width SD 42.2 fl (35.1-43.9); Red Blood Count 4.96 M/mm3 (4.6-6.2); White Blood Count 8.1 K/mm3 (4.4-11.0)
[2022-01-16 00:02] VITALS: BP 118/62
[2022-01-16 00:03] VITALS: BP 118/62
== END 2022-01-16 00:05 | disposition home or self-care (01) ==
PROVIDERS: Emergency Provider Emergency Medicine; PCP Family Medicine; Visit Provider Emergency Medicine
DX: R10.9 Unspecified abdominal pain (principal); I11.0 Hypertensive heart disease with heart failure; I50.22 Chronic systolic (congestive) heart failure; Z87.891 Personal history of nicotine dependence; I25.10 Atherosclerotic heart disease of native coronary artery without angina pectoris; Z87.442 Personal history of urinary calculi; Z99.89 Dependence on other enabling machines and devices; K21.9 Gastro-esophageal reflux disease without esophagitis; Z95.810 Presence of automatic (implantable) cardiac defibrillator; Z86.73 Personal history of transient ischemic attack (TIA), and cerebral infarction without residual deficits
CPT/HCPCS: 74176; 80048; 81001; 85025; 96374; 96375; 99282; A4216; J2405

== ENCOUNTER 2022-01-24 16:19 | Outpatient (CLI) | payer MEDICARE, OTHER, SELFPAY ==
[2022-01-24 18:24] LABS: Anion Gap 6 (5-15); BUN 13 mg/dL (7-18); BUN/Creat Ratio 10.3 RATIO (10-20); Chloride 111 mmol/L (98-107); Cholesterol 150 mg/dL (200); Creatinine, Serum 1.26 mg/dL (0.70-1.30); EST Glomerular Filtration Rate 61 mL/min (>60); Est Glom Filt Rate - Afr Amer 74 mL/min (>60); Glucose 96 mg/dL (74-106); High Density Lipoprotein 30 mg/dL; Sodium Level 141 mmol/L (136-145); Triglycerides 140 mg/dL; Very Low Density Lipoprotein 28 mg/dL (5-40)
== END 2022-01-24 23:59 | disposition home or self-care (01) ==
LOC: MFPLAB 16:21
PROVIDERS: PCP Family Medicine; Referring Provider Family Medicine; Visit Provider Family Medicine
DX: I10 Essential (primary) hypertension (principal)
CPT/HCPCS: 36415; 80048; 80061

== ENCOUNTER 2022-02-07 14:01 | Outpatient (CLI) | payer MEDICARE, OTHER, SELFPAY ==
[2022-02-07 17:47] LABS: Absolute Lymphocyte Count 1.49 X10^3/uL (0.83-4.51); Absolute Neutrophil Count 3.5 X10^3/uL (2.0-7.7); Basophil# 0.04 X10^3/uL; Basophil% 0.7 % (0-1); Eosinophil# 0.15 X10^3/uL; Eosinophils% 2.7 % (0-5); Hematocrit 46.2 % (40-54); Hemoglobin 16.1 g/dL (13.0-16.5); Lymphocyte # 1.49 X10^3/ul (0.83-4.51); Lymphocyte % 26.7 % (19-41); Mean Corp Hgb Conc 34.8 g/dL (32-36); Mean Corpuscular Hgb 31.2 pg (27.0-32.0); Mean Corpuscular Volume 89.5 fL (80-94); Mean Platelet Vol. 9.7 fl (6.2-12.0); Monocyte% 7.2 % (0-10); NRBC Flagged by Analyzer 0 % (0-5); Neutrophil # 3.49 X10^3/uL (2.7-7.7); Neutrophil % 62.5 % (47-70); Platelet Count 225 K/mm3 (150-450); RBC Distribution Width CV 12.5 % (11.6-14.6); RBC Distribution Width SD 41.1 fl (35.1-43.9); Red Blood Count 5.16 M/mm3 (4.6-6.2); White Blood Count 5.6 K/mm3 (4.4-11.0)
[2022-02-07 18:21] LABS: Anion Gap 7 (5-15); BUN 13 mg/dL (7-18); BUN/Creat Ratio 10.5 RATIO (10-20); Calcium,Total 9.6 mg/dL (8.5-10.1); Chloride 108 mmol/L (98-107); Creatinine, Serum 1.24 mg/dL (0.70-1.30); EST Glomerular Filtration Rate 62 mL/min (>60); Est Glom Filt Rate - Afr Amer 75 mL/min (>60); Glucose 125 mg/dL (74-106); Sodium Level 139 mmol/L (136-145)
== END 2022-02-07 23:59 | disposition home or self-care (01) ==
LOC: MTLAB 14:03
PROVIDERS: PCP Family Medicine; Referring Provider Specialist; Visit Provider Specialist
DX: Z01.818 Encounter for other preprocedural examination (principal)
CPT/HCPCS: 36415; 80048; 85025

== ENCOUNTER 2022-02-15 13:51 | Outpatient (CLI) | payer MEDICARE, OTHER, SELFPAY ==
--- NOTE | 2022-02-15 13:56 | RAD_ITS ---
INDICATION: pain in the left foot EXAMINATION/TECHNIQUE: X-RAY - LEFT XR Ankle Min 3 Views 3 VIEWS COMPARISON: None. FINDINGS: No acute fracture or dislocation. Joint spaces are intact. Ankle mortise is intact. No significant degenerative changes. No destructive osseous lesions. Soft tissues are unremarkable. No radiopaque foreign bodies. RAD/Ankle min 3 Views IMPRESSION: No acute findings. Electronically Signed: Harry Persaud, at 15:16 EDT ,
== END 2022-02-15 23:59 | disposition home or self-care (01) ==
LOC: MTRAD 13:53
PROVIDERS: PCP Family Medicine; Referring Provider Family Medicine; Visit Provider Family Medicine
DX: M79.672 Pain in left foot (principal)
CPT/HCPCS: 73610

== ENCOUNTER → 2022-05-10 | Outpatient (CLI) | payer MEDICARE, OTHER, SELFPAY ==
[2022-05-10 18:03] LABS: AST(SGOT) 20 U/L (15-37); Alanine Aminotransfer ALT/SGPT 37 U/L (16-61); Albumin, Serum 3.9 g/dL (3.2-5.0); Alkaline Phosphatase 138 U/L (45-117); Bilirubin, Direct 0.13 mg/dL (0.00-0.30); Cholesterol 115 mg/dL (200); Globulin 3.8 g/dL (2.2-4.2); High Density Lipoprotein 30 mg/dL; Protein, Total 7.7 g/dL (6.4-8.2); Triglycerides 117 mg/dL; Very Low Density Lipoprotein 23 mg/dL (5-40)
== END | disposition home or self-care (01) ==
PROVIDERS: PCP Family Medicine; Referring Provider Nurse Practitioner Gerontology; Visit Provider Nurse Practitioner Gerontology
DX: E78.2 Mixed hyperlipidemia (principal)
CPT/HCPCS: 36415; 80061; 80076

== ENCOUNTER → 2022-05-24 | Outpatient (CLI) | payer MEDICARE, OTHER, SELFPAY ==
--- NOTE | 2022-05-24 14:55 | CT_ITS ---
EXAM: CT LEFT LOWER EXTREMITY WITHOUT INTRAVENOUS CONTRAST CLINICAL INDICATION: PRE OP/OSTEOARTHRITIS TECHNIQUE: Helically acquired images were obtained of the left lower extremity without intravenous contrast. 2-D reformats were performed by the technologist. This CT exam was performed using one or more of the following dose reduction techniques: automated exposure control, adjustment of the mA and/or kV according to patient size, and/or use of iterative reconstruction technique. This report was created using [employer] report generation technology. RADIATION DOSE: CTDIvol = 15.35 mGy, DLP = 496.98 mGy-cm COMPARISON: None. FINDINGS: BONES/JOINTS: No findings of arthritis. There is a calcaneal spur. There is an enthesophyte involving the posterior superior calcaneus at the site of insertion of the Achilles tendon. No acute fracture. No subluxation. Normal alignment. SOFT TISSUES: Unremarkable. No soft tissue swelling or gas. No radiopaque foreign body. VASCULATURE: There are atherosclerotic vascular calcifications. CT/Extremity Lower without Contra IMPRESSION: No findings of arthritis. Electronically Signed: Anshu Lui MD at 15:20 EDT ,
== END | disposition home or self-care (01) ==
LOC: CT 14:52
PROVIDERS: PCP Family Medicine; Referring Provider Orthopaedic Surgery; Visit Provider Orthopaedic Surgery
DX: M19.172 Post-traumatic osteoarthritis, left ankle and foot (principal)
CPT/HCPCS: 73700

== ENCOUNTER → 2022-06-20 | Outpatient (CLI) | payer MEDICARE, OTHER, SELFPAY ==
[2022-06-20 18:19] LABS: PSA,Total - Annual Screen 0.41 ng/mL (0.00-4.00)
== END | disposition home or self-care (01) ==
LOC: MFPLAB 16:31
PROVIDERS: PCP Family Medicine; Referring Provider Family Medicine; Visit Provider Family Medicine
DX: Z12.5 Encounter for screening for malignant neoplasm of prostate (principal)
CPT/HCPCS: 36415; 84153; G0103

== ENCOUNTER → 2022-06-22 | Outpatient (CLI) | payer MEDICARE, OTHER, SELFPAY ==
--- NOTE | 2022-06-22 | LES_PTH ---
PATIENT: ARISTIDES ISSA LOC: [facility] U#:[id number] AGE/SX: 67/M ROOM: RE06/22/[address]: Dr. Speedy Boswell MD : 1955 BED: DIS: 06/22/2022 SPEC #: [id number] RECD: 06/22/22 11:54 STATUS: JUDY REYNOSOWilmer #: [id number] GABY: 06/22/22 00:[address]: Speedy Boswell DEPT: SURGICAL PATHOLOGY RECD BY: Katheryn Shields Tissues: A - Skin of back, NOS B - Skin of back, NOS Procedures: Surgery Specimen Level IV HEADER OPERATION: Skin excision PRE-OP DIAGNOSIS: Suspicious skin lesion TISSUE SUBMITTED: A ? Left upper back neoplasm, B - Right middle back neoplasm MICROSCOPIC DIAGNOSIS A. Left upper back neoplasm, excisional biopsy: Benign verrucous keratosis with focal seborrheic keratosis-like features. B. Right middle back lesion, excisional biopsy: Basal cell carcinoma, multifocal and superficial. See comment. SJ:sanya 06/25/2022 COMMENT The tumor appears to be completely excised in the planes of sections examined. Case has been reviewed in consultation with Dr. Jensen who concurs with the above diagnosis. IDC:AM MICROSCOPIC DESCRIPTION Slides are reviewed. GROSS DESCRIPTION A - Received in fixative is one container labeled with the patient's name and designated left upper back. The specimen consists of an irregular fragment of ramos excised skin measuring 0.8 x 0.6 x 0.2 cm. The specimen is inked, bisected and totally submitted in one cassette. B - Received in fixative is one container labeled with the patient's name and designated right middle back. The specimen consists of an ellipse of light ramos excised skin measuring 1.3 x 0.6 x 0.2 cm. The specimen is inked, sectioned and totally submitted in one cassette. / AM:sanya 06/22/2022 TC:0 CPT: 49129 x2
== END | disposition home or self-care (01) ==
LOC: LABSPEC 12:01
PROVIDERS: PCP Family Medicine; Visit Provider Family Medicine
DX: D49.89 Neoplasm of unspecified behavior of other specified sites (principal)
CPT/HCPCS: 88305

== ENCOUNTER 2022-08-29 14:30 | Outpatient (RCR) | payer MEDICARE, OTHER, SELFPAY ==
--- NOTE | 2022-08-23 13:39 | HP.OTEVAL ---
Patient's Visit Information ARISTIDES ISSA is a 67 year old M, referred to Occupational Therapy by MIKA Burgess, with a diagnosis of left lateral. Date of Evaluation: 08/21/22 Occupational Therapist: Divina Harp, MARSHALL/Kandice, CHT - Subjective This 67 year old male was seen for OT eval with dx of left lateral. pt states pain in left elbow was off and on - would be bothersome for week and go away- then pain stayed and he decided to get it check out- pt states he did use a lateral eip counterforce brace pt states DrPuneet did get a cortisone shot on 08/09/22./ pt states elbow does feel better but would like to know what he can do to avoid further injury. pt ambulates with tripod rollator and has an AKA. - ROM Elbow: right/left WNL Forearm: right /left WNL - Strength Forward Air Controller/Air Officer: right 70# left 75# no pain elbow bent Lateral Pinch: right 10# left 12# Tripod Pinch: right 6# left 6# Strength Comments: right elbow straight 80# left 80# (pt reports pulling sensation) - Quick DASH-Disab of Arm,Shoulder& Hand Quick DASH Score: 20.4525 - Goals Goal:100% adherence to protocol: Yes Comment: lat.epi conservative protocol Goal:ROM equal to unaffected hand: Yes Goal:Forward Air Controller/Air Officer/Pinch strength at least 75% of unaffected hand: Yes Goal:No pain with affected hand use: Yes Goal:Full use of affected hand in daily activities including: Yes Other Goal: pt will demo understating of lateral epi precautions to prevent further injury. - Rehabilitation General Assessment: This 67 year old male was seen for OT eval with positive left lateral epi. limiting his IND with mobility as he ambulates with tripod rollator- pts pain limited his IND. with ADLs and IADLs. pt would benefit from skilled OT services 2x week for 4 weeks to increase pts strength and mobility. pt demo understanding and agree to POC. Rehabilitation Potential: Good - Anticipated Interventions Strengthening, Triggerpoint Release, Modalities, Orthoses, Joint Protection/Energy Conservation, Education re Diagnosis, Home Program - Visit Plan Frequency: 1-2x /Week Duration: 4 Weeks TEXT: Thank you for the opportunity to evaluate your patient. For Medicare and Medicare HMO plans, please review the plan of care and approve it. It will need to be FAXED BACK to us at [phone] for Medicare purposes. Please let me know if there are questions or concerns regarding this plan of care. Physician Signature: Date:
== END 2022-08-29 19:00 | disposition home or self-care (01) ==
LOC: OT 14:30
PROVIDERS: PCP Family Medicine; Referring Provider Physician Assistant; Visit Provider Physician Assistant
DX: M77.12 Lateral epicondylitis, left elbow (principal)
CPT/HCPCS: 97110; 97166

== ENCOUNTER 2022-10-27 16:07 | Emergency (ER) | payer MEDICARE, SELFPAY ==
[2022-10-27 16:09] VITALS: BP 112/73; PULSE 68; RESP 17; TEMP 36.7; O2SAT 98; BMI 43.2
[2022-10-27 16:12] VITALS: O2SAT 95
--- NOTE | 2022-10-27 16:13 | EKG12_ITS ---
Test Reason : SOB Blood Pressure : / mmHG Vent. Rate : 066 BPM Atrial Rate : 066 BPM P-R Int : 184 ms QRS Dur : 074 ms QT Int : 382 ms P-R-T Axes : 071 -70 063 degrees QTc Int : 400 ms Normal sinus rhythm Left axis deviation Anterior infarct , age undetermined Abnormal ECG Confirmed by GRAYSON DORANTES, SCOOTER ([id number]), writer editor KIRSTEN WALL ([id number]) on 10/29/2022 11:59:49 AM Referred By: Confirmed By:SCOOTER GALICIA MD
[2022-10-27 18:07] VITALS: RESP 18
[2022-10-27 18:47] LABS: Absolute Lymphocyte Count 0.99 X10^3/uL (0.83-4.51); Absolute Neutrophil Count 3.7 X10^3/uL (2.0-7.7); Basophil# 0.03 X10^3/uL; Basophil% 0.5 % (0-1); Eosinophils% 3.5 % (0-5); Hematocrit 42.6 % (40-54); Hemoglobin 14.7 g/dL (13.0-16.5); Lymphocyte # 0.99 X10^3/ul (0.83-4.51); Lymphocyte % 17.4 % (19-41); Mean Corp Hgb Conc 34.5 g/dL (32-36); Mean Corpuscular Hgb 31.6 pg (27.0-32.0); Mean Corpuscular Volume 91.6 fL (80-94); Mean Platelet Vol. 9.8 fl (6.2-12.0); Monocyte# 0.74 X10^3/uL; NRBC Flagged by Analyzer 0 % (0-5); Neutrophil # 3.71 X10^3/uL (2.7-7.7); Neutrophil % 65.1 % (47-70); Platelet Count 159 K/mm3 (150-450); RBC Distribution Width CV 13.4 % (11.6-14.6); RBC Distribution Width SD 45.2 fl (35.1-43.9); Red Blood Count 4.65 M/mm3 (4.6-6.2); White Blood Count 5.7 K/mm3 (4.4-11.0)
--- NOTE | 2022-10-27 19:02 | ED.VIS.DYS ---
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 States has had cough and congestion last several days denies any fever or chills. States is a nonproductive cough. Denies any chest pain. No hemoptysis. He does have wheezing. No leg pain or swelling. PE Risk Factors: Negative for Cancer, OCP + Smoking + > 35, Prior DVT or PE, Recent immobilization, Recent surgery or Recent travel Prior similar symptoms: Yes Recent Illness/Hospitalization: No PFSH PFS Medical History Above knee amputation of right lower extremity Acute lymphangitis of right lower extremity Alcohol abuse Atherosclerosis of coronary artery bypass graft without angina pectoris Atherosclerotic heart disease of [place] coronary artery without angina pectoris CAD (coronary artery disease) Cancer Chronic Systolic CHF - EF 45% Chronic systolic congestive heart failure CPAP (continuous positive airway pressure) dependence Debility Depression Effects of radiation Essential hypertension Family history of CVA Former smoker Gastroenteritis GERD (gastroesophageal reflux disease) GERD (gastroesophageal reflux disease) Hearing loss, left Hearing loss, right History of 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 History of tobacco abuse ICD (implantable cardioverter-defibrillator) in place (~08/17/10) Ischemic cardiomyopathy 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 on left 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 Lymphedema of Right Leg Lymphedema of right lower extremity Mixed hyperlipidemia Morbid obesity with BMI of 40.0-44.9, adult Myocardial infarct Obesity (BMI 30-39.9) Pacemaker Shortness of breath SIRS (systemic inflammatory response syndrome) Sleep apnea Surgical wound dehiscence TIA (transient ischemic attack) Home Medications aspirin 81 mg chewable tablet 81 mg PO QHS Heart health 06/09/17 [History Last Taken 05/08/21 17:00] bupropion HCl 150 mg tablet,12 hr sustained-release 150 mg PO BID Depression 01/08/18 [History Last Taken 05/09/21 17:00] loratadine 10 mg tablet 10 mg PO DAILY allergies 12/26/19 [History Last Taken 05/09/21 08:00] pantoprazole 40 mg tablet,delayed release 40 mg PO DAILY gerd #30 tabs 01/08/20 [Rx Last Taken 05/09/21 08:00] gabapentin 300 mg capsule 300 mg PO QHS Rls 09/21/20 [History Last Taken 05/08/21 23:00] temazepam 15 mg capsule 15 mg PO QHS PRN Sleep 09/21/20 [History Last Taken 05/08/21 23:00] trazodone 50 mg tablet 50 mg PO QHS sleep 03/22/21 [History Last Taken 05/08/21 23:00] isosorbide mononitrate 60 mg tablet,extended release 24 hr 60 mg PO BID blood pressure #180 tabs 08/24/21 [Rx Last Taken Unknown] atorvastatin 80 mg tablet 80 mg PO QHS cholesterol #90 tabs 09/07/21 [Rx Last Taken Unknown] ramipril 2.5 mg capsule 2.5 mg PO BID #180 caps 10/06/21 [Rx Last Taken Unknown] furosemide 40 mg tablet 40 mg PO BID #180 tabs 11/27/21 [Rx Last Taken Unknown] escitalopram oxalate 20 mg tablet 20 mg PO DAILY 08/20/22 [History Last Taken Unknown] clopidogrel 75 mg tablet (Plavix) 75 mg PO DAILY blood clots #90 tabs 09/17/22 [Rx Last Taken Unknown] nitroglycerin 0.4 mg sublingual tablet 0.4 mg sublingual Q5M PRN chest pain #25 tabs 10/17/22 [Rx Last Taken Unknown] potassium chloride 20 mEq tablet,extended release 40 meq PO QDAY supplement #180 tabs 10/19/22 [Rx Last Taken Unknown] carvedilol 25 mg tablet 25 mg PO BID heart #180 tabs 10/24/22 [Rx Last Taken Unknown] prednisone 20 mg tablet 40 mg PO DAILY 5 days #10 tabs 10/27/22 [Rx Last Taken Unknown] Allergy/AdvReac Type Severity Reaction Status Date / Time No Known Allergies Allergy Verified 10/27/22 16:08 Family History Mother CAD (coronary artery disease) Father CVA (cerebral vascular accident) Myocardial infarction Brother CAD (coronary artery disease) Hx of CABG Brother CAD (coronary artery disease) Hx of CABG Other Family history of CVA Surgical History Postsurgical aortocoronary bypass status (~06/01/05) Presence of stent in coronary artery (~10/15/13) Status post right rotator cuff repair Social History Smoking Status: Former smoker how long ago did patient quit smokin alcohol intake: current alcohol intake frequency: a few times a month substance use type: does not use caffeine: Yes ROS ROS ED ROS Narrative Cough, shortness of breath. Review of Systems ROS Unobtainable: Denies due to encephalopathy Constitutional Constitutional ED: Denies chills or fever(s) Eyes Eyes: Denies blurry vision ENT ENT ED: Denies ear pain Cardiovascular Cardiovascular: Denies chest pain, palpitations or racing heartbeat Respiratory/Chest Respiratory/Chest: Reports cough and dyspnea Gastrointestinal Gastrointestinal: Denies abdominal pain Genitourinary Genitourinary ED: Denies dysuria or hematuria Musculoskeletal Musculoskeletal: Denies arthralgias Integumentary Denies abscess Neurologic Neurologic: Denies headache(s) Psychiatric Psychiatric: Denies anxiety Endocrine Endocrinology: Denies cold intolerance Hematologic/Lymphatic Hematologic/Lymphatic: Denies easy bleeding Allergic/Immunologic Allergic/Immunologic ED: Denies mouth swelling or tongue swelling EXAM Physical Exam Narrative Exam Narrative: 67-year-old male vital signs stable afebrile. Pulse ox 98% on room air no hypoxia. No distress. H EENT exam unremarkable. Moist Riis members. Neck nontender no JVD. No lymphadenopathy. Lungs coarse breath sounds. Few expiratory scattered wheezes. No rales or rhonchi. Equal symmetrical. Heart regular rate and rhythm rate about 70 no murmur. Chest wall nontender. Abdomen soft nontender. Moving all 4 extremities. Above the knee amputation with prosthesis on the right. Left calf is nontender no edema. Neurologic exam awake alert with no focal motor deficits. Const Vital Signs: 10/27/22 16:09 10/27/22 16:12 10/27/22 19:02 Temperature 98.1 F Temperature Source Temporal Pulse Rate 68 Respiratory Rate 17 Respiratory Effort Normal Non-Labored Respiratory Depth Normal Respiratory Pattern Normal Blood Pressure 112/73 Blood Pressure Mean 86 Pulse Ox 98 Oxygen Delivery Method Room Air Room Air Room Air 10/27/22 19:10 10/27/22 16:12 Temperature Temperature Source Pulse Rate 68 Respiratory Rate 17 Respiratory Effort Respiratory Depth Respiratory Pattern Blood Pressure Blood Pressure Mean Pulse Ox 95 Oxygen Delivery Method Room Air Positive well nourished, well developed and obese; Negative for cachectic, contractures or unkempt General Appearance ED: well developed and NAD; Negative for unkempt, cachectic, contractures or pallor Nutritional Appearance: obese; Negative for cachectic HEENT Reports moist mucous membranes; Denies dry mucous membranes atraumatic; Negative for trauma Mouth ED: No dry mucous membranes Mouth: No dry mucous membranes Eyes PERRL and EOMs intact bilaterally General Eye ED: Negative for pale conjunctiva or scleral icterus Neck no lymphadenopathy, supple, no meningeal signs and no JVD General: Negative for tenderness Lymph Lymphatic: Negative for other Chest Wall Chest: Negative for other Resp normal respiratory effort and No clear to auscultation bilaterally Auscultation: wheezes; Negative for rales or rhonchi Cardio regular rate, regular rhythm, S1 normal heart sound, S2 normal heart sound and no murmurs GI non-tender, non-distended and no masses Auscultation: normoactive bowel sounds Palpation: soft; Negative for tender or guarding Back/Spine no CVA tenderness and normal to inspection General Back: Negative for CVA tenderness Extremity normal to inspection General Extremety ED: Negative for edema or tenderness General Extremity: Negative for edema Neuro oriented x3 and CN's II-XII intact bilaterally Sensorium / Orientation: alert, oriented to person, oriented to place and oriented to time; Negative for orientation impaired, confused, lethargic or stuporous Speech: speech normal Motor Exam: strength 5/5 throughout Psych mental status grossly normal Appearance: Negative for unkempt Attitude: No agitated Mood & Affect: Negative for depressed, anxious or tearful Thought Process: normal thought process Skin no wounds General Skin Exam: Negative for jaundice or pallor Lesions: no lesions Rashes: no rashes Trauma: Negative for abrasion MDM MDM MDM Narrative Medical decision making narrative: 67-year-old with wheezing and shortness of breath. Most likely viral URI. Being treated with IV Solu-Medrol and aerosols. Chest x-ray, EKG and labs are being obtained. Repeat exam patient doing well. At 9:50 PM. He will be discharged home. Wheezing is resolved. His breathing is improved. He will be discharged home with a prescription for prednisone 40 mils a day for 5 days. I discussed that is most likely a viral syndrome. He understands he does not need any antibiotics at this time. He is comfortable being discharged home. Lab Data Attestation: I reviewed the patient's lab results. Lab results narrative: CBC shows white count 5.7. H&H of 14 and 42. Platelets 159. Electrolytes show a gap of 5 BUN of 16 creatinine 1.34. Glucose 103. Chest x-ray negative. Labs: Laboratory Results - last 24 hr 10/27/22 10/27/22 18:35 18:35 WBC 5.7 RBC 4.65 Hgb 14.7 Hct 42.6 MCV 91.6 MCH 31.6 MCHC 34.5 RDW Std Deviation 45.2 H RDW Coeff of Ang 13.4 Plt Count 159 MPV 9.8 Immature Gran % (Auto) 0.500 Neut % (Auto) 65.1 Lymph % (Auto) 17.4 L [place] % (Auto) 13.0 H Eos % (Auto) 3.5 Baso % (Auto) 0.5 Absolute Neuts (auto) 3.7 Absolute Lymphs (auto) 0.99 Nucleated RBC % 0 Sodium 138 Potassium 4.0 Chloride 106 Carbon Dioxide 27.0 Anion Gap 5 BUN 16 Creatinine 1.34 H Estim Creat Clear Calc 51.75 Est GFR (MDRD) Af Amer 68 Est GFR (MDRD) Non-Af 56 L BUN/Creatinine Ratio 11.9 Glucose 103 Calcium 9.8 Radiography Chest X-Ray - ED: 1 View, Read by ED Physician, Read by Radiologist, Heart, Lungs, Mediastinum, Bony Structures, No Acute Disease and Chronic Changes Diagnostic Testing: Clinical Impression(s) from Imaging Studies Chest X-Ray 10/27/22 20:25 IMPRESSION: There are no acute findings. Electronically Signed: Anshu Lui MD at 20:46 EST Reading Location ID and State: [facility] / [place] , Service support , Chest x-ray, portable, single view interpreted both by myself and radiologist shows no acute abnormality. COVID test negative. Rhythm Strip Rhythm Strip: Sinus Rhythm Rate: 66 Ectopy: None EKG Initial EKG: Attestation: I personally reviewed and interpreted this EKG as follows: Interpretation: Sinus Rhythm and No Acute Injury Pattern Comments: Normal sinus rhythm rate of 66 no acute signs of [place] or ischemia. Discharge Plan Triage Chief Complaint: Shortness of Breath ED Provider: Vicente Burgos Dx/Rx/DC Orders Clinical Impression: Viral URI, Bilateral wheezing, Hx of CABG Instructions: ED Bronchitis with Wheezing (Adult) Prescriptions: New prednisone 20 mg tablet 40 mg PO DAILY 5 Days Qty: 10 0RF No Action bupropion HCl 150 mg tablet extended release 12 hr 150 mg PO BID pantoprazole 40 mg tablet,delayed release (DR/EC) 40 mg PO DAILY Qty: 30 11RF gabapentin 300 mg capsule 300 mg PO QHS temazepam 15 mg capsule 15 mg PO QHS PRN (Reason: Sleep) trazodone 50 mg tablet 50 mg PO QHS escitalopram oxalate 20 mg tablet 20 mg PO DAILY aspirin 81 MG tablet,chewable 81 mg PO QHS Label Comments: TAKES WITH NIASPAN TO PREVENT HOT FLASHES Rx Instructions: will stop 5 day prior loratadine 10 MG tablet 10 mg PO DAILY Label Comments: TAKE 1 TABLET BY MOUTH ONCE DAILY isosorbide mononitrate 60 mg tablet extended release 24 hr 60 mg PO BID Qty: 180 3RF atorvastatin 80 mg tablet 80 mg PO QHS Qty: 90 3RF ramipril 2.5 mg capsule 2.5 mg PO BID Qty: 180 4RF furosemide 40 mg tablet 40 mg PO BID Qty: 180 4RF Rx Instructions: water retention clopidogrel [Plavix] 75 mg tablet 75 mg PO DAILY Qty: 90 3RF nitroglycerin 0.4 mg tablet, sublingual 0.4 mg sublingual Q5M PRN (Reason: chest pain) Qty: 25 3RF Rx Instructions: do not exceed 3 doses per episode potassium chloride 20 mEq tablet extended release 40 meq PO QDAY Qty: 180 3RF carvedilol 25 mg tablet 25 mg PO BID Qty: 180 3RF Primary Care Provider: Speedy Boswell Referrals: Speedy Boswell MD [Primary Care Provider] - 3-5 Days if not improving Activity Restrictions/Additional Instructions: You have a virus. Plenty of fluids and rest. Prednisone as needed for wheezing. Follow-up with your doctor if not improving or return if worse. Disposition Disposition: Home, Self Care
[2022-10-27 19:04] LABS: Anion Gap 5 (5-15); BUN 16 mg/dL (7-18); BUN/Creat Ratio 11.9 RATIO (10-20); Calcium,Total 9.8 mg/dL (8.5-10.1); Chloride 106 mmol/L (98-107); Creatinine, Serum 1.34 mg/dL (0.70-1.30); EST Glomerular Filtration Rate 56 mL/min (>60); Est Glom Filt Rate - Afr Amer 68 mL/min (>60); Estimated Creatinine Clearance 51.75 ml/min; Glucose 103 mg/dL (74-106); Sodium Level 138 mmol/L (136-145)
[2022-10-27] MEDS: Ipratropium/Albuterol Sulfate 3 ML AMPUL.NEB INHALATION (19:09)
[2022-10-27] MEDS: Albuterol 2.5 MG/3 ML VIAL.NEB. INHALATION (19:09)
[2022-10-27 19:10] VITALS: PULSE 68; RESP 17
[2022-10-27] MEDS: MethylPREDNISolone 125 MG/2 ML Vial IV (19:32)
[2022-10-27 20:07] VITALS: BP 110/74; PULSE 76; RESP 19; O2SAT 95
--- NOTE | 2022-10-27 20:25 | RAD_ITS ---
STUDY: XR Chest 1 View 10/27/2022 8:28 PM REASON FOR EXAM: Male, 67 years old. CHEST PAIN SOB COMPARISON: 09/17/2021 TECHNIQUE: XR Chest 1 View FINDINGS: There is no demonstrated pleural abnormality. There are multiple median sternotomy wires. There is a left sided pacemaker batterypack. Normal heart size. Normal mediastinum. Normal keke. Prominent appearing increased interstitial lung markings. Normal visualized pulmonary arteries. There is atherosclerotic calcification of the aortic arch with tortuosity. There are diffuse degenerative changes of the visualized thoracic spine. There is degenerative osteoarthritis of the bilateral shoulders. There is no demonstrated abnormality of the visualized soft tissue structures of the upper abdomen. RAD/Chest 1 View (Portable) IMPRESSION: There are no acute findings. Electronically Signed: Anshu Lui MD at 20:46 EST ,
== END 2022-10-27 22:06 | disposition home or self-care (01) ==
PROVIDERS: Emergency Provider Emergency Medicine; PCP Family Medicine; Visit Provider Emergency Medicine
DX: J06.9 Acute upper respiratory infection, unspecified (principal); I25.10 Atherosclerotic heart disease of native coronary artery without angina pectoris; G47.30 Sleep apnea, unspecified; I25.2 Old myocardial infarction; Z95.1 Presence of aortocoronary bypass graft; Z86.73 Personal history of transient ischemic attack (TIA), and cerebral infarction without residual deficits; Z87.891 Personal history of nicotine dependence
CPT/HCPCS: 71045; 80048; 85025; 87811; 93005; 94640; 94760; 96374; 99282; A4216

== ENCOUNTER → 2023-01-17 | Outpatient (CLI) | payer MEDICARE, SELFPAY | END | disposition home or self-care (01) | LOC: LAB 14:46 | PROVIDERS: PCP Family Medicine; Visit Provider Registered Nurse | DX: Z12.5 Encounter for screening for malignant neoplasm of prostate (principal) ==

== ENCOUNTER → 2023-09-24 | Outpatient (CLI) | payer MEDICARE, SELFPAY ==
--- NOTE | 2023-09-24 06:58 | ECHOCS_ITS ---
Reason For Study: CP/SOB Procedure This was a 2D Doppler, Color Flow transthoracic echocardiogram. The study was technically difficult. Contrast injection was performed. Max amount of Definity used. Exam performed in department. Left Ventricle Mildly dilated left ventricle. The left ventricular ejection fraction is 40 %. Apical akinesis. Stage 1 diastolic dysfunction. Right Ventricle The right ventricle is not well visualized. ICD or pacer leads identified within the right ventricle. Atria The left atrium is severely enlarged. The right atrium is not well visualized. Mitral Valve Trivial mitral valve insufficiency. Tricuspid Valve The tricuspid valve is not well visualized. Aortic Valve Trisinus/trileaflet aortic valve. Pulmonic Valve The pulmonic valve is not well visualized. Great Vessels Normal sized aortic root. Pericardium/Pleural No pericardial effusion. Medication 22 gauge I.V. with prn adaptor inserted into left arm. Diluted definity 10ml given slow IV push to enhance endocardial definition. MMode/2D Measurements & Calculations Ao root diam: 3.8 cm LAV(MOD-bp): 35.6 ml LA dimension: 4.8 cm LVAd ap4: 34.6 cm2 LAV(MOD-bp) Indexed: 14.7 ml/m2 LVLd ap4: 8.5 cm LAV(MOD-sp2): 35.7 ml EDV(MOD-sp4): 113.3 ml LAV(MOD-sp4): 35.0 ml EDV(sp4-el): 120.3 ml LVAs ap4: 26.9 cm2 LVLs ap4: 8.2 cm ESV(MOD-sp4): 73.2 ml ESV(sp4-el): 74.8 ml EF(MOD-sp4): 35.4 % EF(sp4-el): 37.9 % SV(MOD-sp4): 40.1 ml SV(sp4-el): 45.6 ml LA A4 area: 14.9 cm2 Time Measurements MV dec time: 0.43 sec Doppler Measurements & Calculations MV E max armin: 51.3 cm/sec Lat Peak E' Armin: 6.6 cm/sec Med Peak E' Armin: 7.8 cm/sec MV A max armin: 83.5 cm/sec E/E' lat: 7.8 E/E' med: 6.6 MV E/A: 0.62 MV V2 max: 89.3 cm/sec MV P1/2t max armin: 52.0 cm/sec Ao V2 max: 111.7 cm/sec MV max P.2 mmHg MV P1/2t: 129.5 msec Ao max P.0 mmHg MV V2 mean: 37.6 cm/sec MV dec slope: 117.7 cm/sec2 MV mean P.70 mmHg MVA(P1/2t): 1.7 cm2 MV V2 VTI: 29.6 cm LV V1 max: 114.2 cm/sec PA V2 max: 94.0 cm/sec LV V1 max P.2 mmHg PI dec slope: 63.8 cm/sec2 ECHO/Echo Complete W/ Contrast Interpretation Summary The study was technically difficult. Mildly dilated left ventricle. The left ventricular ejection fraction is 40-45 %. Apical akinesis Stage 1 diastolic dysfunction. The left atrium is severely enlarged. Ordering Physician: Delilah Foster Referring Physician: Delilah Foster Performed By: Orion Ware RCS
--- NOTE | 2023-09-24 11:47 | STRESSREP_ITS ---
Stress Test Report Date: 09/24/2023 Procedure: Pharmacologic stress nuclear imaging study Indications: Chest pain Consent: Per the patient Procedure: The patient underwent pharmacologic (Regadenoson 0.4mg ) evaluation with a peak heart rate of 78 beats per minute (51%predicted maximal heart rate) and a peak blood pressure of 128/76 mmHg. The baseline ECG demonstrated sinus rhythm. The peak pharmacologic ECG demonstrated no ischemic changes. There were no cardiac dysrhythmias pretest, during pharmacologic infusion, or recovery. There was no complaint of chest discomfort during pharmacologic infusion or recovery. The patient was injected with 15.0 millicuries of technetium 99m Cardiolite and subsequently rest SPECT Cardiolite nuclear imaging was obtained in the horizontal long, vertical long, and short axis views. The patient underwent pharmacologic (Regadenoson) evaluation. The patient was injected with 44.3 millicuries of technetium 99m Cardiolite and subsequently stress SPECT Cardiolite nuclear imaging was obtained in the horizontal long, vertical long, and short axis views. A gated Cardiolite study at peak stress was obtained. The examination was stopped secondary to completion of protocol. Rest and stress SPECT Cardiolite nuclear imaging status post realignment, normalization, and attenuation correction demonstrate an area of apical infarct. There is mild global hypokinesis. [place] is dyskinetic. The reported LVEF is 46%. Impression: 1. Pharmacologic (Regadenoson) evaluation 2. Peak pharmacologic ECG with no ischemic changes. 3. There were no cardiac dysrhythmias pretest, during pharmacologic infusion, or recovery. 5. Area of apical infarct. No reversible ischemia. 6. The gated Cardiolite study reports an LVEF of 46%. This note was generated with [employer] software. It may contain incorrect words, spelling, and punctuation that were not noted in checking the note before signing.
== END | disposition home or self-care (01) ==
PROVIDERS: PCP Family Medicine; Referring Provider Internal Medicine Cardiovascular Disease; Visit Provider Internal Medicine Cardiovascular Disease
DX: I25.10 Atherosclerotic heart disease of native coronary artery without angina pectoris (principal)
CPT/HCPCS: 78452; 93017; 93306; A9500; Q9957; A4216; C8929; J0153; J2405; J2785

== ENCOUNTER → 2023-11-28 | Outpatient (CLI) | payer MEDICARE, SELFPAY ==
--- OUTSIDE RECORDS SUMMARY | 2023-11-28 15:36 | XMS RPT_ITS | CCD ---
Author Name Unknown Address [address] [place] [address] Organization [facility] Care Team Providers Care Full Stack Web Developer Name Role Phone JUANCHO Deng, Peg Demarco Unavailable Unavailable Speedy Pink MD Primary Care Provider [phone] Daysi DORANTES, Arlene Gee Unavailable Alex CHAIREZ, Rizwana Vela Unavailable Unavailable Alex CHAIREZ, Rizwana Vela Unavailable Unavailable JUANCHO Deng, Peg Demarco Unavailable Unavailable JAUNCHO Deng, Peg Demarco Unavailable Unavailable Speedy Mtz MD Unavailable Cary George MD Unavailable Siders, Chey C Unavailable Unavailable Siders Chey C Unavailable Unavailable Lowell Otero MD Unavailable JUANCHO Deng, Peg Demarco Unavailable Unavailable KEL NIELSEN Attending Unavailable SPEEDY PINK Primary Care Unavailable Speedy Pink MD Primary Care Provider [phone] Delilah Foster MD Unavailable Speedy Pink MD Primary Care Provider Medications Current Medications Medication Drug Class(es) Dates Sig (Normalized) Sig (Original) acetaminophen 500 mg oral tablet (2 sources) Start: 05-31-2021 take 2 tablets by mouth every eight hours acetaminophen (TYLENOL) 500 MG tablet Take 2 tablets by mouth every 8 hours 120 tablet 0 05/31/2021 Active Completed/Discontinued Medications Medication Drug Class(es) Dates Sig (Normalized) Sig (Original) Acetaminophen / HYDROcodone (20 sources) Opioid Agonist Start: 02-16-2011 VICODIN 5-500 MG TABS As needed HYDROCODONE-ACETAMI NOPHEN [id number] Opal Lees Problems Active Problems Problem Classification Problem Date Documented Date Episodic/Chronic Acute 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 ([address]) [address] elevation (STEMI) 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 involving other coronary artery of anterior wall; Translations: [Acute 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 of other anterior wall, subsequent episode of care] Onset: 02-16-2011 Resolved: 06-01-2016 02-16-2011 Chronic Complication of device; implant or graft (20 sources) Arteriosclerosis of coronary artery bypass graft; Translations: [Atherosclerosis of coronary artery bypass graft(s) without angina pectoris] Onset: 02-16-2011 Resolved: 06-01-2016 02-16-2011 Chronic Conduction disorders (2 sources) Presence of automatic (implantable) cardiac defibrillator; Translations: [Presence of automatic (implantable) cardiac defibrillator] Onset: 09-11-2023 Chronic Congestive heart failure; nonhypertensive (3 sources) Chronic systolic heart failure; Translations: [Chronic systolic (congestive) heart failure] Onset: 05-29-2021 Chronic Coronary atherosclerosis and other heart disease (20 sources) Coronary atherosclerosis; Translations: [Atherosclerotic heart disease of [place] coronary artery without angina pectoris] Onset: 02-16-2011 Resolved: 11-30-2016 11-30-2016 Chronic Disorders of lipid metabolism (16 sources) Hyperlipidemia; Translations: [Hyperlipidemia, unspecified] Onset: 02-16-2011 02-16-2011 Chronic Esophageal disorders (9 sources) Gastroesophageal reflux disease; Translations: [Gastro-esophageal reflux disease without esophagitis] Onset: 06-19-2017 06-19-2017 Chronic Essential hypertension (16 sources) Hypertensive disorder; Translations: [Essential (primary) hypertension] Onset: 02-16-2011 02-16-2011 Chronic Osteoarthritis (6 sources) Osteoarthritis of left hip joint; Translations: [Unilateral primary osteoarthritis, left hip] Onset: 10-05-2015 10-05-2015 Chronic Other bone disease and musculoskeletal deformities (2 sources) History of amputation of right leg through femur; Translations: [Acquired absence of right leg above knee] Onset: 04-23-2019 04-25-2019 Chronic Other diseases of veins and lymphatics (18 sources) Lymphedema, not elsewhere classified; Translations: [Lymphedema of lower extremity] Onset: 08-06-2013 04-03-2017 Chronic Other diseases of veins and lymphatics (15 sources) Lymphedema; Translations: [Noninfective disorder of lymphatic vessels and lymph nodes, unspecified] Onset: 08-06-2013 08-10-2013 Chronic Other diseases of veins and lymphatics (11 sources) Lymphedema of lower extremity; Translations: [Lymphedema, not elsewhere classified] Onset: 05-15-2017 05-28-2017 Chronic Other nutritional; endocrine; and metabolic disorders (16 sources) Morbid obesity; Translations: [Morbid (severe) obesity due to excess calories] Onset: 04-03-2017 04-03-2017 Chronic Other nutritional; endocrine; and metabolic disorders (16 sources) Body mass index (BMI) 40.0-44.9, adult; Translations: [Body Mass Index 40.0-44.9, adult] Onset: 10-07-2013 10-07-2013 Chronic Amna-; endo-; and myocarditis; cardiomyopathy (except that caused by tuberculosis or sexually transmitted disease) (20 sources) Cardiomyopathy in diseases classified elsewhere; Translations: [Cardiomyopathy in other diseases classified elsewhere] Onset: 02-16-2011 Resolved: 06-01-2016 06-01-2016 Chronic Unclassified (2 sources) Disorder of cardiovascular system; Translations: [Unspecified disorder of circulatory system] Onset: 02-16-2011 Resolved: 06-01-2016 02-16-2011 Chronic Unclassified (1 source) Implantation of automatic cardiac defibrillator ; Translations: [Presence of automatic (implantable) cardiac defibrillator] Onset: 02-16-2011 02-16-2011 Unclassified (1 source) Long-term drug therapy; Translations: [Other [place] [facility] (current) drug therapy] Onset: 02-16-2011 02-16-2011 Unclassified (1 source) Aftercare ; Translations: [Encounter for other specified surgical aftercare] Onset: 06-05-2017 07-07-2017 Past or Other Problems Problem Classification Problem Date Documented Da te Episodic/Chronic Bacterial infection; unspecified site (3 sources) Methicillin resistant Staphylococcus aureus infection; Translations: [Methicillin resistant Staphylococcus aureus infection, unspecified site] Onset: 04-25-2019 Resolved: 04-25-2019 04-25-2019 Episodic Biliary tract disease (9 sources) Gallstone; Translations: [Calculus of gallbladder without cholecystitis without obstruction] Onset: 06-19-2017 06-19-2017 Episodic Cancer of bone and connective tissue (17 sources) Sarcoma; 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] Onset: 10-04-2015 Resolved: 04-25-2019 04-03-2017 Chronic Complications of surgical procedures or medical care (1 source) Wound discharge; Translations: [Other complications of procedures, not elsewhere classified, initial encounter] Resolved: 04-25-2019 04-25-2019 Episodic Coronary atherosclerosis and other heart disease (20 sources) History of 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; Translations: [Presence of aortocoronary bypass graft] Onset: 02-16-2011 02-16-2011 Episodic Fracture of upper limb (6 sources) Closed fracture of lower end of humerus; Translations: [Unspecified physeal fracture of lower end of humerus, unspecified arm, initial encounter for closed fracture] Onset: 05-24-2021 Episodic Malaise and fatigue (16 sources) Malaise and fatigue; Translations: [Other malaise and fatigue] Onset: 01-10-2015 01-10-2015 Episodic Neoplasms of unspecified nature or uncertain behavior (20 sources) Neoplasm of soft tissue; 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] Onset: 05-15-2017 05-18-2017 Episodic Open wounds of extremities (16 sources) Open wound of foot except toes with complication; Translations: [Laceration with foreign body, unspecified foot, initial encounter] Onset: 01-11-2016 01-12-2016 Episodic Other aftercare (15 sources) Long-term drug therapy; Translations: [Other [place] [facility] [place] (current) drug therapy] Onset: 02-16-2011 02-16-2011 Episodic Other circulatory disease (20 sources) Disorder of cardiovascular system; Translations: [Unspecified disorder of circulatory system] Onset: 02-16-2011 Resolved: 06-01-2016 06-01-2016 Episodic Other diseases of veins and lymphatics (1 source) Lymphedema of right lower limb; Translations: [Lymphedema, not elsewhere classified] Onset: 01-26-2019 Resolved: 04-25-2019 04-25-2019 Chronic Other injuries and conditions due to external causes (12 sources) Late effect of radiation; Translations: [Radiation sickness, unspecified, sequela] Onset: 05-15-2017 05-28-2017 Episodic Other lower respiratory disease (16 sources) Dyspnea; Translations: [Shortness of breath] Onset: 07-01-2013 07-01-2013 Episodic Other nervous system disorders (3 sources) Acute pain due to injury; Translations: [Acute pain due to trauma] Onset: 05-25-2021 Episodic Other skin disorders (13 sources) Hyperkeratosis; Translations: [Skin tag] Onset: 04-03-2017 07-07-2017 Episodic Other skin disorders (15 sources) Skin tag; Translations: [Other hypertrophic disorders of the skin] Onset: 04-03-2017 04-03-2017 Episodic Residual codes; unclassified (16 sources) Family history of stroke; Translations: [Family history of stroke] 07-16-2014 Episodic Screening and history of mental health and substance abuse codes (12 sources) Ex-smoker; Translations: [Personal history of nicotine dependence] Onset: 05-15-2017 05-28-2017 Episodic Skin and subcutaneous tissue infections (20 sources) Cellulitis of lower limb; Translations: [Cellulitis and abscess of foot, except toes] Onset: 03-12-2011 01-12-2016 Episodic Unclassified (2 sources) Preoperative cardiovascular examination ; Translations: [Encounter for preprocedural cardiovascular examination] Onset: 02-16-2011 Resolved: 06-01-2016 02-16-2011 Results Test Name Value Interpretation Reference Range Facil ity Vital Signs Date Time Vital Sign Value Performing Clinician Facility 08-26-2023 15:31-0400 Body height 180.3 cm Kel Nielsen MD Work Phone: [facility] [employer] 08-26-2023 15:31-0400 Body mass index (BMI) [Ratio] 38.77 kg/m2 Kel Nielsen MD Work Phone: [facility] [employer] 08-26-2023 15:31-0400 Body weight 126.1 kg Kel Nielsen MD Work Phone: [facility] [employer] 06-01-2021 00:25-0400 Body temperature 97.81 [degF] Roni Figueroa MD Work Phone: [employer] Work Phone: 06-01-2021 00:25-0400 Diastolic blood pressure 93 mm[Hg] Roni Figueroa MD Work Phone: [employer] Work Phone: 06-01-2021 00:25-0400 Heart rate 82 /min Roni Figueroa MD Work Phone: [facility] Work Phone: 06-01-2021 00:25-0400 Respiratory rate 17 /min Roni Figueroa MD Work Phone: [facility] Work Phone: 06-01-2021 00:25-0400 SaO2% (BldA) [Mass fraction] 98 % Roni Figueroa MD Work Phone: [facility] Work Phone: 06-01-2021 00:25-0400 Systolic blood pressure 155 mm[Hg] Roni Figueroa MD Work Phone: [facility] Work Phone: 05-24-2021 00:05-0400 Body height 180.3 cm Roni Figueroa MD Work Phone: [facility] Work Phone: 05-24-2021 00:05-0400 Body mass index (BMI) [Ratio] 38.77 kg/m2 Roni Figueroa MD Work Phone: [facility] Work Phone: 05-24-2021 00:05-0400 Body weight 126.1 kg Roni Figueroa MD Work Phone: [facility] Work Phone: 07-03-2017 08:47-0400 Body height 181.61 cm Lowell Otero MD [facility] Work Phone: 07-03-2017 08:47-0400 Body mass index (BMI) [Ratio] 44.75 kg/m2 Lowell Otero MD [facility] Work Phone: 07-03-2017 08:47-0400 Body surface area Derived from formula 2.61 m2 Lowell Otero MD [facility] Work Phone: 07-03-2017 08:47-0400 Body temperature 96.9 [degF] Lowell Otero MD [facility] Work Phone: 07-03-2017 08:47-0400 Body weight 147.6 kg Lowell Otero MD [facility] Work Phone: 07-03-2017 08:47-0400 Diastolic blood pressure 81 mm[Hg] Lowell Otero MD [facility] Work Phone: 07-03-2017 08:47-0400 Heart rate 64 /min Lowell Otero MD [facility] Work Phone: 07-03-2017 08:47-0400 Respiratory rate 18 /min Lowell Otero MD [facility] Work Phone: 07-03-2017 08:47-0400 Systolic blood pressure 129 mm[Hg] Lowell Otero MD [facility] Work Phone: 07-03-2017 08:47-0400 Weight 147.6 kg Peg Deng RN [facility] Work Phone: 06-19-2017 10:56-0400 Body height 181.61 cm Cary George MD Work Phone: [facility] Work Phone: 06-19-2017 10:56-0400 Body mass index (BMI) [Ratio] 44 kg/m2 Cary George MD Work Phone: [facility] Work Phone: 06-19-2017 10:56-0400 Body temperature 97.2 [degF] Cary George MD Work Phone: [facility] Work Phone: 06-19-2017 10:56-0400 Body weight 145.15 kg Cary George MD Work Phone: [facility] Work Phone: 06-19-2017 10:56-0400 Diastolic blood pressure 76 mm[Hg] Cary George MD Work Phone: [facility] Work Phone: 06-19-2017 10:56-0400 Heart rate 75 /min Cary George MD Work Phone: [facility] Work Phone: 06-19-2017 10:56-0400 Respiratory rate 18 /min Cary George MD Work Phone: [facility] Work Phone: 06-19-2017 10:56-0400 Systolic blood pressure 106 mm[Hg] Cary George MD Work Phone: [facility] Work Phone: 06-14-2017 13:20-0400 Body height 181.61 cm JUANCHO [facility] Work Phone: 06-14-2017 13:20-0400 Body mass index (BMI) [Ratio] 44.91 kg/m2 Peg Deng RN [facility] Work Phone: 06-14-2017 13:20-0400 Body weight 148.15 kg Peg Deng RN [facility] Work Phone: 06-14-2017 13:20-0400 Diastolic blood pressure 64 mm[Hg] Peg Deng RN [facility] Work Phone: 06-14-2017 13:20-0400 Heart rate 66 /min JUANCHO [facility] Work Phone: 06-14-2017 13:20-0400 Systolic blood pressure 100 mm[Hg] Peg Deng RN [facility] Work Phone: 05-23-2017 12:15-0400 Body height 181.61 cm Rizwana [facility] Work Phone: 05-23-2017 12:15-0400 Body mass index (BMI) [Ratio] 43.98 kg/m2 Rizwana Johnson LPN [facility] Work Phone: 05-23-2017 12:15-0400 Body temperature 97.8 [degF] Rizwana Alex TIME CLOCK MECHANIC [facility] Work Phone: 05-23-2017 12:15-0400 Body weight 145.06 kg Rizwana Alex TIME CLOCK MECHANIC [facility] Work Phone: 05-23-2017 12:15-0400 Diastolic blood pressure 56 mm[Hg] Rizwana Johnson TIME CLOCK MECHANIC [facility] Work Phone: 05-23-2017 12:15-0400 Heart rate 69 /min Rizwana Johnson LPN [facility] Work Phone: 05-23-2017 12:15-0400 Respiratory rate 20 /min Rizwana Alex MIHAELA [facility] Work Phone: 05-23-2017 12:15-0400 SaO2% (BldA) [Mass fraction] 98 % Rizwana Alex TIME CLOCK MECHANIC [facility] Work Phone: 05-23-2017 12:15-0400 Systolic blood pressure 113 mm[Hg] Rizwana Johnson MIHAELA [facility] Work Phone: 05-15-2017 10:40-0400 Body surface area Derived from formula 2.61 m2 Rizwana Johnson TIME CLOCK MECHANIC [facility] Work Phone: 05-01-2017 09:51-0400 Body mass index (BMI) [Ratio] 44.86 kg/m2 Arlene Signs [facility] Work Phone: 05-01-2017 09:51-0400 Body temperature 96.7 [degF] Arlene Tavarez MD [facility] Work Phone: 05-01-2017 09:51-0400 Body weight 147.96 kg Arlene Tavarez MD [facility] Work Phone: 05-01-2017 09:51-0400 Diastolic blood pressure 66 mm[Hg] Arlene Signs [facility] Work Phone: 05-01-2017 09:51-0400 Heart rate 61 /min Arlene Signs [facility] Work Phone: 05-01-2017 09:51-0400 SaO2% (BldA) [Mass fraction] 100 % Arlene Signs [facility] Work Phone: 05-01-2017 09:51-0400 Systolic blood pressure 110 mm[Hg] Arlene Signs [facility] Work Phone: 04-03-2017 10:29-0400 Body height 181.61 cm Arlene Signs [facility] Work Phone: 04-03-2017 10:29-0400 Body mass index (BMI) [Ratio] 44.39 kg/m2 Arlene Signs [facility] Work Phone: 04-03-2017 10:29-0400 Body temperature 97.2 [degF] Arlene Signs [facility] Work Phone: 04-03-2017 10:29-0400 Body weight 146.42 kg Arlene Signs [facility] Work Phone: 04-03-2017 10:29-0400 Diastolic blood pressure 61 mm[Hg] Arlene Signs [facility] Work Phone: 04-03-2017 10:29-0400 Heart rate 64 /min Arlene Signs [facility] Work Phone: 04-03-2017 10:29-0400 Respiratory rate 22 /min Arlene Tavarez MD [facility] Work Phone: 04-03-2017 10:29-0400 SaO2% (BldA) [Mass fraction] 97 % Arlene Tavarez MD [facility] Work Phone: 04-03-2017 10:29-0400 Systolic blood pressure 96 mm[Hg] Arlene Tavarez MD [facility] Work Phone: 12-14-2016 13:36-0500 Body surface area Derived from formula 2.61 m2 Arlene Tavarez MD [facility] Work Phone: Encounters Encounter Date Encounter Type Care Provider Facility Start: 11-21-2023 End: 11-21-2023 Subsequent hospital visit by physician Jeremy Kaur MD Work Phone: [facility] Start: 09-11-2023 ambulatory Facility:[facility] Start: 08-26-2023 End: 08-26-2023 Patient encounter procedure Kel Nielsen MD Work Phone: [facility] Procedures Date Procedure Procedure Detail Performing Clinician Start: 11-21-2023 DEVICE EVALUATION Other Other Start: 05-31-2021 COVID-19 Keira Humphrey COMPUTER CUSTOMER SUPPORT SPECIALIST - WEB DESIGN INTERN Work Phone: Start: 05-29-2021 Dup-scan xtr veins complete bilateral study Keira Humphrey COMPUTER CUSTOMER SUPPORT SPECIALIST - WEB DESIGN INTERN Work Phone: Start: 05-25-2021 Basic metabolic panel calcium total Sd Moreno PA-C Work Phone: Start: 05-24-2021 OPERATIVE REPORT 3m Scanning Start: 05-24-2021 Radex humerus minimum 2 views Sd Moreno PA-C Work Phone: Start: 05-24-2021 Radex elbow complete minimum 3 views Edouard Fontana MD Work Phone: Start: 05-24-2021 Chest x-ray 1 view frontal Edouard correa MD Work Phone: Start: 05-24-2021 Antibody screen Roni Figueroa MD Work Phone: Start: 05-24-2021 Ecg routine ecg w/least 12 lds w/i&r Edouard Fontana MD Work Phone: Start: 05-24-2021 Basic metabolic panel calcium total Linda Kandice Mcknight MD Work Phone: Start: 05-24-2021 Blood typing serologic abo Edouard correa MD Work Phone: Start: 09-13-2017 End: 09-13-2017 Prgrmg eval implantable in prsn dual lead dfb Speedy Mtz MD Start: 09-13-2017 End: 09-13-2017 Prgrmg eval implantable in prsn dual lead dfb Speedy Mtz MD Start: 07-03-2017 End: 07-03-2017 Alcoholism counseling Lowell Otero MD Start: 07-03-2017 End: 07-03-2017 Dietary management education, guidance, and counseling Lowell Otero MD Start: 07-03-2017 End: 07-03-2017 Documentation of current medications Lowell Otero MD Start: 06-19-2017 End: 06-19-2017 Alcoholism counseling Cary George MD Work Phone: Start: 06-19-2017 End: 06-19-2017 Dietary management education, guidance, and counseling Cary George MD Work Phone: Start: 06-19-2017 End: 06-19-2017 Documentation of current medications Cary George MD Work Phone: Start: 06-14-2017 End: 06-14-2017 Follow Up Appt 6 months Divina ortiz PA-C Work Phone: Start: 06-14-2017 End: 06-14-2017 PFM Divina Giles PA-C Work Phone: Start: 06-14-2017 End: 06-14-2017 Prgrmg eval implantable in prsn dual lead dfb Speedy Mtz MD Start: 06-14-2017 End: 06-14-2017 Dietary management education, guidance, and counseling Peg Deng RN Start: 06-14-2017 End: 06-14-2017 Documentation of current medications Peg Deng RN Start: 06-14-2017 End: 06-14-2017 Follow Up Appt 6 months Divina ortiz PA-C Work Phone: Start: 06-14-2017 End: 06-14-2017 PF Divina Giles PA-C Work Phone: Start: 06-14-2017 End: 06-14-2017 Prgrmg eval implantable in prsn dual lead dfb Speedy Mtz MD Start: 06-05-2017 Aftercare Aftercare plastic surgery Lowell Otero MD Start: 05-15-2017 End: 05-28-2017 Follow Up Appt Lois Otero MD Start: 05-15-2017 End: 05-15-2017 Alcoholism counseling Rizwana Johnson LPN Start: 05-15-2017 End: 05-15-2017 Dietary management education, guidance, and counseling Rizwana Johnson LPN Start: 05-15-2017 End: 05-15-2017 Documentation of current medications Rizwana Johnson LPN Start: 05-15-2017 End: 05-28-2017 Follow Up Appt Other Lowell Otero MD Start: 05-01-2017 End: 05-01-2017 Documentation of current medications Arlene Tavarez MD Start: 04-03-2017 End: 04-04-2017 Referral to surgeon Arlene Tavarez MD Start: 04-03-2017 End: 04-03-2017 Documentation of current medications Arlene Tavarez MD Start: 04-03-2017 End: 04-04-2017 Referral to surgeon Arlene Tavarez MD Start: 12-14-2016 End: 12-14-2016 Device Interrogation Speedy Mtz MD Start: 12-14-2016 End: 06-06-2017 Follow Up Appt 3 months Speedy Mtz MD Start: 12-14-2016 End: 12-14-2016 Follow Up Appt 6 months Speedy Mtz MD Start: 12-14-2016 End: 12-14-2016 MMM Speedy Mtz MD Start: 12-14-2016 End: 06-06-2017 Pacer Clinic Speedy Mtz MD Start: 12-14-2016 End: 12-14-2016 Prgrmg eval implantable in prsn dual lead dfb Speedy Mtz MD Start: 12-14-2016 End: 12-14-2016 Dietary management education, guidance, and counseling Arlene Tavarez MD Start: 12-14-2016 End: 12-14-2016 Device Interrogation Speedy Mtz MD Start: 12-14-2016 End: 06-06-2017 Follow Up Appt 3 months Speedy Mtz MD Start: 12-14-2016 End: 12-14-2016 Follow Up Appt 6 months Speedy Mtz MD Start: 12-14-2016 End: 12-14-2016 BECKY Mtz MD Start: 12-14-2016 End: 06-06-2017 Pacer Clinic Speedy Mtz MD Start: 12-14-2016 End: 12-14-2016 Prgrmg eval implantable in prsn dual lead dfb Speedy Mtz MD Start: 09-05-2016 End: 12-14-2016 Follow Up Appt 3 months Speedy Mtz MD Start: 09-05-2016 End: 09-05-2016 Follow Up Appt Other Divina vela PA-C Work Phone: Start: 09-05-2016 End: 12-14-2016 Pacer Clinic Speedy Mtz MD Start: 09-05-2016 End: 09-10-2016 Prgrmg eval implantable in prsn dual lead dfb Speedy Mtz MD Start: 09-05-2016 End: 12-14-2016 Follow Up Appt 3 months Speedy Mtz MD Start: 09-05-2016 End: 09-05-2016 Follow Up Appt Other Divina vela PA-C Work Phone: Start: 09-05-2016 End: 12-14-2016 Pacer Clinic Speedy Mtz MD Start: 09-05-2016 End: 09-10-2016 Prgrmg eval implantable in prsn dual lead dfb Speedy Mtz MD Start: 06-01-2016 End: 08-22-2016 Follow Up Appt 3 months Divina ortiz PA-C Work Phone: Start: 06-01-2016 End: 06-01-2016 Follow Up Appt 6 months Divina ortiz PA-C Work Phone: Start: 06-01-2016 End: 06-01-2016 MM Divina Giles PA-C Work Phone: Start: 06-01-2016 End: 06-22-2016 Nuclear stress test -Lexiscluke Giles PA-C Work Phone: Start: 06-01-2016 End: 08-22-2016 Pacer Clinic Divina Giles PA-C Work Phone: Start: 06-01-2016 End: 06-01-2016 [facility] Divina Giles PA-C Work Phone: Start: 06-01-2016 End: 06-01-2016 Prgrmg eval implantable in prsn dual lead dfb Divina Giles PA-C Work Phone: Start: 06-01-2016 End: 08-22-2016 Follow Up Appt 3 months Divina ortiz PA-C Work Phone: Start: 06-01-2016 End: 06-01-2016 Follow Up Appt 6 months Divina ortiz PA-C Work Phone: Start: 06-01-2016 End: 06-01-2016 MM Divina Giles PA-C Work Phone: Start: 06-01-2016 End: 06-22-2016 Nuclear stress test -[facility] Divina Giles PA-C Work Phone: Start: 06-01-2016 End: 08-22-2016 Pacer Clinic Divina Giles PA-C Work Phone: Start: 06-01-2016 End: 06-01-2016 [facility] Divina Giles PA-C Work Phone: Start: 06-01-2016 End: 06-01-2016 Prgrmg eval implantable in prsn dual lead dfb Divina Giles PA-C Work Phone: Start: 02-28-2016 End: 05-18-2016 Follow Up Appt 3 months Divina ortiz PA-C Work Phone: Start: 02-28-2016 End: 05-18-2016 Pac[facility] Clinic Divina Giles PA-C Work Phone: Start: 02-28-2016 End: 02-29-2016 Prgrmg eval implantable in prsn dual lead dfb Divina Giles PA-C Work Phone: Start: 02-28-2016 End: 05-18-2016 Follow Up Appt 3 months Divina rotiz PA-C Work Phone: Start: 02-28-2016 End: 05-18-2016 [facility] Clinic Divina Giles PA-C Work Phone: Start: 02-28-2016 End: 02-29-2016 Prgrmg eval implantable in prsn dual lead dfb Divina Giles PA-C Work Phone: Start: 01-11-2016 End: 01-11-2016 Alcoholism counseling Arlene Tavarez MD Start: 01-11-2016 End: 01-11-2016 Smoking cessation education Arlene Tavarez MD Start: 01-03-2016 End: 01-03-2016 Urinalysis Arlene Tavarez MD Start: 11-30-2015 End: 11-30-2015 Device Interrogation Speedy Mtz MD Start: 11-30-2015 End: 05-18-2016 Echocardiography Speedy Mtz MD Start: 11-30-2015 End: 05-18-2016 Follow Up Appt 3 months Speedy Mtz MD Start: 11-30-2015 End: 11-30-2015 Follow Up Appt 6 months Speedy Mtz MD Start: 11-30-2015 End: 11-30-2015 MM Speedy Mtz MD Start: 11-30-2015 End: 05-18-2016 Pacer [facility] Speedy Mtz MD Start: 11-30-2015 End: 12-01-2015 Prgrmg eval implantable in prsn dual lead dfb Speedy Mtz MD Start: 11-30-2015 End: 11-30-2015 Device Interrogation Speedy Mtz MD Start: 11-30-2015 End: 05-18-2016 Echocardiography Speedy Mtz MD Start: 11-30-2015 End: 05-18-2016 Follow Up Appt 3 months Speedy Mtz MD Start: 11-30-2015 End: 11-30-2015 Follow Up Appt 6 months Speedy Mtz MD Start: 11-30-2015 End: 11-30-2015 MMM Speedy Mtz MD Start: 11-30-2015 End: 05-18-2016 Pacer Clinic Speedy Mtz MD Start: 11-30-2015 End: 12-01-2015 Prgrmg eval implantable in prsn dual lead dfb Speedy Mtz MD Start: 08-17-2015 End: 08-17-2015 *CBC with Differential Divina mcgee PA-C Work Phone: Start: 08-17-2015 End: 05-18-2016 Follow Up Appt 3 months Divina ortiz PA-C Work Phone: Start: 08-17-2015 End: 05-18-2016 Pacer Clinic Divina Giles PA-C Work Phone: Start: 08-17-2015 End: 08-17-2015 Prgrmg eval implantable in prsn dual lead dfb Divina Giles PA-C Work Phone: Start: 08-17-2015 End: 08-17-2015 CBC W Auto Differential panel - Blood Divina Giles PA-C Work Phone: Start: 08-17-2015 End: 05-18-2016 Follow Up Appt 3 months Divina ortiz PA-C Work Phone: Start: 08-17-2015 End: 05-18-2016 Pacer Clinic Divina Giles PA-C Work Phone: Start: 08-17-2015 End: 08-17-2015 Prgrmg eval implantable in prsn dual lead dfb Divina Giles PA-C Work Phone: Start: 08-03-2015 End: 08-04-2015 Documentation of current medications Divina Giles PA-C Work Phone: Start: 08-03-2015 End: 08-03-2015 Follow Up Appt 3 months Divina ortiz PA-C Work Phone: Start: 08-03-2015 End: 08-03-2015 PFM Divina Giles PA-C Work Phone: Start: 08-03-2015 End: 08-04-2015 Documentation of current medications Divina Giles PA-C Work Phone: Start: 08-03-2015 End: 08-03-2015 Follow Up Appt 3 months Divina rotiz PA-C Work Phone: Start: 08-03-2015 End: 08-03-2015 PF Divina Giles PA-C Work Phone: Start: 05-12-2015 End: 07-20-2015 Follow Up Appt 3 months Speedy Mtz MD Start: 05-12-2015 End: 07-20-2015 Pacer Clinic Speedy Mtz MD Start: 05-12-2015 End: 05-13-2015 Prgrmg eval implantable in prsn dual lead dfb Speedy Mtz MD Start: 05-12-2015 End: 07-20-2015 Follow Up Appt 3 months Speedy Mtz MD Start: 05-12-2015 End: 07-20-2015 Pacer Clinic Speedy Mtz MD Start: 05-12-2015 End: 05-13-2015 Prgrmg eval implantable in prsn dual lead dfb Speedy Mtz MD Start: 05-04-2015 End: 07-20-2015 *BMP Speedy Mtz MD Start: 05-04-2015 End: 07-20-2015 Follow Up Appt 3 months Speedy Mtz MD Start: 05-04-2015 End: 07-20-2015 MMM Speedy Mtz MD Start: 05-04-2015 End: 07-20-2015 Basic metabolic 2000 panel - Serum or Plasma Speedy Mtz MD Start: 05-04-2015 End: 07-20-2015 Follow Up Appt 3 months Speedy Mtz MD Start: 05-04-2015 End: 07-20-2015 MMM Speedy Mtz MD Start: 05-02-2015 End: 05-05-2015 *BMP Speedy Mtz MD Start: 05-02-2015 End: 05-05-2015 Basic metabolic 2000 panel - Serum or Plasma Speedy Mtz MD Start: 03-30-2015 End: 07-20-2015 Follow Up Appt Other Divina vela PA-C Work Phone: Start: 03-30-2015 End: 07-20-2015 Follow Up Appt Other Divina vela PA-C Work Phone: Start: 03-16-2015 End: 03-25-2015 *BMP Divina Giles PA-C Work Phone: Start: 03-16-2015 End: 03-25-2015 *CBC with Differential Divina mcgee PA-C Work Phone: Start: 03-16-2015 End: 03-16-2015 Follow up Appt 3 weeks Divina mcgee PA-C Work Phone: Start: 03-16-2015 End: 03-16-2015 MMM Divina Giles PA-C Work Phone: Start: 03-16-2015 End: 03-25-2015 Natriuretic peptide B [Mass/volume] in Blood Divina Giles PA-C Work Phone: Start: 03-16-2015 End: 03-25-2015 Basic metabolic 2000 panel - Serum or Plasma Divina Giles PA-C Work Phone: Start: 03-16-2015 End: 03-25-2015 CBC W Auto Differential panel - Blood Divina Giles PA-C Work Phone: Start: 03-16-2015 End: 03-16-2015 Follow up Appt 3 weeks Dviina mcgee PA-C Work Phone: Start: 03-16-2015 End: 03-16-2015 MMM Divina Giles PA-C Work Phone: Start: 03-16-2015 End: 03-25-2015 Natriuretic peptide B [Mass/volume] in Blood Divina Giles PA-C Work Phone: Start: 03-11-2015 End: 03-11-2015 *BMP Divina Giles PA-C Work Phone: Start: 03-11-2015 End: 03-11-2015 Basic metabolic 2000 panel - Serum or Plasma Divina Giles PA-C Work Phone: Start: 03-07-2015 End: 03-08-2015 Documentation of current medications Divina Giles PA-C Work Phone: Start: 03-07-2015 End: 03-07-2015 Follow Up Appt Other Divina vela PA-C Work Phone: Start: 03-07-2015 End: 03-08-2015 Documentation of current medications Divina Giles PA-C Work Phone: Start: 03-07-2015 End: 03-07-2015 Follow Up Appt Other Divina vela PA-C Work Phone: Start: 01-10-2015 End: 01-10-2015 *BMP Divina Giles PA-C Work Phone: Start: 01-10-2015 End: 01-10-2015 *CBC with Differential Divina mcgee PA-C Work Phone: Start: 01-10-2015 End: 01-11-2015 Documentation of current medications Divina Giles PA-C Work Phone: Start: 01-10-2015 End: 01-10-2015 Follow Up Appt 3 months Divina ortiz PA-C Work Phone: Start: 01-10-2015 End: 01-10-2015 Magnesium [Mass/volume] in Serum or Plasma Divina Giles PA-C Work Phone: Start: 01-10-2015 End: 01-10-2015 Pacer Clinic Speedy Mtz MD Start: 01-10-2015 End: 01-10-2015 PFM Divina Giles PA-C Work Phone: Start: 01-10-2015 End: 01-10-2015 Prgrmg eval implantable in prsn dual lead dfb Speedy Mtz MD Start: 01-10-2015 End: 01-10-2015 Thyrotropin [Units/volume] in Serum or Plasma Divina Giles PA-C Work Phone: Start: 01-10-2015 End: 01-10-2015 Basic metabolic 2000 panel - Serum or Plasma Divina Giles PA-C Work Phone: Start: 01-10-2015 End: 01-10-2015 CBC W Auto Differential panel - Blood Divina Giles PA-C Work Phone: Start: 01-10-2015 End: 01-11-2015 Documentation of current medications Divina Giles PA-C Work Phone: Start: 01-10-2015 End: 01-10-2015 Follow Up Appt 3 months Divina ortiz PA-C Work Phone: Start: 01-10-2015 End: 01-10-2015 Magnesium [Mass/volume] in Serum or Plasma Divina Giles PA-C Work Phone: Start: 01-10-2015 End: 01-10-2015 Pacer Clinic Speedy Mtz MD Start: 01-10-2015 End: 01-10-2015 Prgrmg eval implantable in prsn dual lead dfb Speedy Mtz MD Start: 01-10-2015 End: 01-10-2015 Thyrotropin [Units/volume] in Serum or Plasma Divina Giles PA-C Work Phone: Start: 12-03-2014 End: 01-10-2015 Follow Up Appt 3 months Divina ortiz PA-C Work Phone: Start: 12-03-2014 End: 01-10-2015 Pacer Clinic Divina Giles PA-C Work Phone: Start: 12-03-2014 End: 12-03-2014 Prgrmg eval implantable in prsn dual lead dfb Divina Giles PA-C Work Phone: Start: 12-03-2014 End: 01-10-2015 Follow Up Appt 3 months Divina ortiz PA-C Work Phone: Start: 12-03-2014 End: 01-10-2015 Prgrmg eval implantable in prsn dual lead dfb Divina Giles PA-C Work Phone: Start: 08-19-2014 End: 01-10-2015 Follow Up Appt 3 months Speedy Mtz MD Start: 08-19-2014 End: 01-10-2015 Pacer Clinic Speedy Mtz MD Start: 08-19-2014 End: 08-19-2014 Prgrmg eval implantable in prsn dual lead dfb Speedy Mtz MD Start: 08-19-2014 End: 01-10-2015 Follow Up Appt 3 months Speedy Mtz MD Start: 08-19-2014 End: 01-10-2015 Prgrmg eval implantable in prsn dual lead dfb Speedy Mtz MD Start: 07-16-2014 End: 07-16-2014 Ecg routine ecg w/least 12 lds w/i&r Speedy Mtz MD Start: 07-16-2014 End: 07-16-2014 Follow Up Appt 6 months Speedy Mtz MD Start: 07-16-2014 End: 07-16-2014 PFM Speedy Mtz MD Start: 07-16-2014 End: 07-16-2014 Ecg routine ecg w/least 12 lds w/i&r Speedy Mtz MD Start: 07-16-2014 End: 07-16-2014 Follow Up Appt 6 months Speedy Mtz MD Start: 05-14-2014 End: 01-10-2015 Follow Up Appt 3 months Speedy Mtz MD Start: 05-14-2014 End: 01-10-2015 Pacer Clinic Speedy Mtz MD Start: 05-14-2014 End: 05-14-2014 Prgrmg eval implantable in prsn dual lead dfb Speedy Mtz MD Start: 05-14-2014 End: 01-10-2015 Follow Up Appt 3 months Speedy Mtz MD Start: 05-14-2014 End: 01-10-2015 Prgrmg eval implantable in prsn dual lead dfb Speedy Mtz MD Start: 02-25-2014 End: 03-07-2015 External Counterpulsation Therapy Speedy Mtz MD Start: 02-25-2014 End: 03-07-2015 Us abdominal real time w/image limited Speedy Mtz MD Start: 02-25-2014 End: 03-07-2015 External Counterpulsation Therapy Speedy Mtz MD Start: 02-25-2014 End: 03-07-2015 Us abdominal real time w/image limited Speedy Mtz MD Start: 02-05-2014 End: 01-10-2015 Follow Up Appt 3 months Speedy Mtz MD Start: 02-05-2014 End: 01-10-2015 Pacer Clinic Speedy Mtz MD Start: 02-05-2014 End: 02-05-2014 Prgrmg eval implantable in prsn dual lead dfb Speedy Mtz MD Start: 02-05-2014 End: 01-10-2015 Follow Up Appt 3 months pSeedy Mtz MD Start: 02-05-2014 End: 01-10-2015 Prgrmg eval implantable in prsn dual lead dfb Speedy Mtz MD Start: 01-07-2014 End: 01-07-2014 Follow Up Appt 6 months Speedy Mtz MD Start: 01-07-2014 End: 01-07-2014 PFM Speedy Mtz MD Start: 01-07-2014 End: 01-07-2014 Follow Up Appt 6 months Speedy Mtz MD Start: 01-07-2014 End: 01-07-2014 BASIM Mtz MD Start: 11-06-2013 End: 01-10-2015 Cardiac Rehab Speedy Mtz MD Start: 11-06-2013 End: 01-10-2015 Cardiovascular stress test using treadmill Speedy Mtz MD Start: 11-06-2013 End: 01-10-2015 Follow Up Appt 3 months Speedy Mtz MD Start: 11-06-2013 End: 01-10-2015 Pacer Clinic Speedy Mtz MD Start: 11-06-2013 End: 11-06-2013 PFNilam Mtz MD Start: 11-06-2013 End: 11-06-2013 Prgrmg eval implantable in prsn dual lead dfb Speedy Mtz MD Start: 11-06-2013 End: 01-10-2015 Cardiac Rehab Speedy Mtz MD Start: 11-06-2013 End: 01-10-2015 Cardiovascular stress test using treadmill Speedy Mtz MD Start: 11-06-2013 End: 01-10-2015 Follow Up Appt 3 months Speedy Mtz MD Start: 11-06-2013 End: 01-10-2015 Pacer Clinic Speedy Mtz MD Start: 11-06-2013 End: 11-06-2013 Prgrmg eval implantable in prsn dual lead dfb Speedy Mtz MD Start: 11-01-2013 End: 01-10-2015 *Hepatic Function Panel Divina M McCon diana, PA-C Work Phone: Start: 11-01-2013 End: 01-10-2015 Lipid 1996 panel - Serum or Plasma Divina Giles PA-C Work Phone: Start: 11-01-2013 End: 01-10-2015 Hepatic function 2000 panel - Serum or Plasma Divina Giles PA-C Work Phone: Start: 11-01-2013 End: 01-10-2015 Lipid 1996 panel - Serum or Plasma Divina Giles PA-C Work Phone: Start: 10-28-2013 End: 10-28-2013 Follow Up Appt Other Divina vela PA-C Work Phone: Start: 10-28-2013 End: 10-28-2013 Lipid 1996 panel Divina Giles PA-C Work Phone: Start: 10-16-2013 End: 10-28-2013 *BMP Chano Sotelo MD Work Phone: Start: 10-16-2013 End: 10-28-2013 aPTT in Platelet poor plasma by Coagulation assay Chano Sotelo MD Work Phone: Start: 10-16-2013 End: 10-28-2013 CBC W Auto Differential panel - Blood Chano Sotelo MD Work Phone: Start: 10-16-2013 End: 10-28-2013 Chest x-ray Chano Sotelo MD Work Phone: Start: 10-16-2013 End: 10-28-2013 Ecg routine ecg w/least 12 lds w/i&r Chano Sotelo MD Work Phone: Start: 10-16-2013 End: 10-28-2013 INR in Platelet poor plasma by Coagulation assay Chano Sotelo MD Work Phone: Start: 10-16-2013 End: 10-28-2013 Left Heart Cath W/Grafts Chano Sotelo MD Work Phone: Start: 10-16-2013 End: 10-28-2013 aPTT in Platelet poor plasma by Coagulation assay Chano Sotelo MD Work Phone: Start: 10-16-2013 End: 10-28-2013 Basic metabolic 2000 panel - Serum or Plasma Chano Sotelo MD Work Phone: Start: 10-16-2013 End: 10-28-2013 CBC W Auto Differential panel - Blood Chano Sotelo MD Work Phone: Start: 10-16-2013 End: 10-28-2013 Chest x-ray Chano Sotelo MD Work Phone: Start: 10-16-2013 End: 10-28-2013 Ecg routine ecg w/least 12 lds w/i&r Chano Sotelo MD Work Phone: Start: 10-16-2013 End: 10-28-2013 INR in Platelet poor plasma by Coagulation assay Chano Sotelo MD Work Phone: Start: 10-16-2013 End: 10-28-2013 Left Heart Cath W/Grafts Chano Sotelo MD Work Phone: Start: 10-07-2013 End: 10-28-2013 Follow Up Appt Other Speedy Mtz MD Start: 10-07-2013 End: 10-28-2013 MMM Speedy Mtz MD Start: 10-07-2013 End: 10-28-2013 Chest x-ray Speedy Mtz MD Start: 10-07-2013 End: 10-28-2013 Follow Up Appt Other Speedy Mtz MD Start: 08-26-2013 End: 10-28-2013 Follow Up Appt 3 months Speedy Mtz MD Start: 08-26-2013 End: 10-28-2013 Pacer Clinic Speedy Mtz MD Start: 08-26-2013 End: 08-26-2013 Prgrmg eval implantable in prsn dual lead dfb Speedy Mtz MD Start: 08-26-2013 End: 10-28-2013 Follow Up Appt 3 months Speedy Mtz MD Start: 08-26-2013 End: 10-28-2013 Pacer Clinic Speedy Mtz MD Start: 08-26-2013 End: 08-26-2013 Prgrmg eval implantable in prsn dual lead dfb Speedy Mtz MD Start: 08-06-2013 End: 08-06-2013 Follow Up Appt Other Divina vela PA-C Work Phone: Start: 08-05-2013 End: 08-06-2013 Follow Up Appt 3 months Speedy Mtz MD Start: 08-05-2013 End: 08-06-2013 Pacer Clinic Speedy Mtz MD Start: 08-05-2013 End: 08-06-2013 Prgrmg eval implantable in prsn dual lead dfb Speedy Mtz MD Start: 08-05-2013 End: 08-06-2013 Pacer Clinic Speedy Mtz MD Start: 08-05-2013 End: 08-06-2013 Prgrmg eval implantable in prsn dual lead dfb Speedy Mtz MD Start: 07-01-2013 End: 07-24-2013 Follow Up Appt 1 month Divina mcgee PA-C Work Phone: Start: 07-01-2013 End: 07-24-2013 MM Divina Giles PA-C Work Phone: Start: 07-01-2013 End: 07-24-2013 Follow Up Appt 1 month Divina mcgee PA-C Work Phone: Start: 07-01-2013 End: 07-24-2013 MMM Divina Giles PA-C Work Phone: Start: 05-05-2013 End: 06-03-2013 Follow Up Appt 3 months Speedy Mtz MD Start: 05-05-2013 End: 06-03-2013 Pacer Clinic Speedy Mtz MD Start: 05-05-2013 End: 05-05-2013 Prgrmg eval implantable in prsn dual lead dfb Speedy Mtz MD Start: 05-05-2013 End: 06-03-2013 Follow Up Appt 3 months Speedy Mtz MD Start: 05-05-2013 End: 06-03-2013 Pacer Clinic Speedy Mtz MD Start: 05-05-2013 End: 05-05-2013 Prgrmg eval implantable in prsn dual lead dfb Speedy Mtz MD Start: 04-22-2013 End: 05-08-2013 *Hepatic Function Panel Khris Spencer MD Start: 04-22-2013 End: 05-08-2013 Lipid 1996 panel - Serum or Plasma Khris Spencer MD Start: 04-22-2013 End: 05-08-2013 Hepatic function 2000 panel - Serum or Plasma Khris Spencer MD Start: 04-22-2013 End: 05-08-2013 Lipid 1996 panel - Serum or Plasma Khris Spencer MD Start: 04-20-2013 End: 04-21-2013 Ecg routine ecg w/least 12 lds w/i&r Speedy Mtz MD Start: 04-20-2013 End: 06-03-2013 Echocardiography Speedy Mtz MD Start: 04-20-2013 End: 04-21-2013 Follow Up Appt 6 months Speedy Mtz MD Start: 04-20-2013 End: 04-21-2013 PFM Speedy Mtz MD Start: 04-20-2013 End: 04-21-2013 Ecg routine ecg w/least 12 lds w/i&r Speedy Mtz MD Start: 04-20-2013 End: 06-03-2013 Echocardiography Speedy Mtz MD Start: 04-20-2013 End: 04-21-2013 Follow Up Appt 6 months Speedy Mtz MD Start: 10-30-2012 End: 04-21-2013 Echocardiography Khris Spencer MD Start: 10-30-2012 End: 04-21-2013 Echocardiography Khris Spencer MD Start: 09-03-2012 End: 04-21-2013 *BMP Khris Spencer MD Start: 09-03-2012 End: 04-21-2013 *Hepatic Function Panel Khris Spencer MD Start: 09-03-2012 End: 04-21-2013 Lipid 1996 panel - Serum or Plasma Khris Spencer MD Start: 09-03-2012 End: 04-21-2013 Magnesium [Mass/volume] in Serum or Plasma Khris Spencer MD Start: 09-03-2012 End: 04-21-2013 Basic metabolic 2000 panel - Serum or Plasma Khris Spencer MD Start: 09-03-2012 End: 04-21-2013 Hepatic function 2000 panel - Serum or Plasma Khris Spencer MD Start: 09-03-2012 End: 04-21-2013 Lipid 1996 panel - Serum or Plasma Khris Spencer MD Start: 09-03-2012 End: 04-21-2013 Magnesium [Mass/volume] in Serum or Plasma Khris Spencer MD Start: 04-17-2012 End: 04-17-2013 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 Khris Spencer MD Start: 04-17-2012 End: 04-17-2012 Follow Up Appt 6 months Khris Spencer MD Start: 04-17-2012 End: 04-17-2012 Follow Up Appt 6 months Khris Spencer MD Start: 04-17-2012 End: 04-17-2013 Magnesium [Mass/Vol] Khris Spencer MD Start: 03-05-2012 End: 04-09-2012 *Hepatic Function Panel Khris Spencer MD Start: 03-05-2012 End: 04-09-2012 Lipid 1996 panel - Serum or Plasma Khris Spencer MD Start: 03-05-2012 End: 04-09-2012 Hepatic function 2000 panel - Serum or Plasma Khris Spencer MD Start: 03-05-2012 End: 04-09-2012 Lipid 1996 panel - Serum or Plasma Khris Spencer MD Start: 12-10-2011 End: 12-10-2011 Follow Up Appt Other Khris Spencer MD Start: 12-10-2011 End: 12-10-2011 Follow Up Appt Lois Spencer MD Start: 02-16-2011 Implantation of automatic cardiac defibrillator IMPLANTATION OF DEFIBRILLATOR, HX OF Arlene Signs Plan of Treatment Date Care Activity Detail Author Start: 11-21-2024 Potassium [Moles/volume] in Serum or Plasma POTASSIUM [facility] Start: 05-27-2024 DTaP/Tdap/Td vaccine (3 - Td or Tdap) DTaP/Tdap/Td vaccine (3 - Td or Tdap) [facility] Work Phone: Start: 05-27-2024 DTaP/Tdap/Td Vaccines (3 - Td or Tdap) DTaP/Tdap/Td Vaccines (3 - Td or Tdap) [facility] Start: 05-27-2024 Tetanus vaccination TETANUS [facility] Start: 12-04-2023 End: 12-04-2023 Admission to same day surgery center 12/04/2023 9:45 AM EST - 12/04/2023 12:15 PM EST Surgery Cardiovascular Imaging Lab [facility] [address] [place] [id number] Justin Pittman MD [address] [place] [id number] ICD Generator Changeout Cardiovascular Imaging Lab [facility] Immunizations Immunization Date Immunization Notes Care Provider Fa cility 09-04-2022 influenza virus vacc ine, unspecified formulation Kel Nielsen MD Work Phone: [facility] Payers Date Payer Category Payer Medicare [id number] 2022 Medicare [id number] 2021 Medicare BCBS MEDICARE AN THEM MEDIBLUE ESSENTIAL/PLUS [id number] 2021-Present [address] [address] [place] [address] [id number] 2020 Medicare [id number] 2020 Unknown [id number] 1955 Unknown [id number] Social History Date Type Detail Facility Start: 05-25-2021 End: 02-11-2023 Tobacco smoking status DEIS Former smoker [facility] Work Phone: End: 12-02-1980 History of tobacco use [facility] End: 12-02-1980 History of tobacco use Cigarette Smoker [facility] Start: 03-18-2015 End: 05-25-2021 Cigarettes smoked current (pack per day) - Reported [facility] Work Phone: Start: 05-25-2021 End: 02-11-2023 Tobacco use and exposure Current user [facility] History of tobacco use Chews Tobacco [facility] Start: 05-25-2021 End: 08-26-2023 Alcohol intake Current drink[facility] of [facility] (finding) [facility] Start: 05-04-2019 Alcohol Comment [facility] Start: 1955 Sex Assigned At Not on file [facility] [employer] Phone: Start: 08-16-2023 End: 08-26-2023 Exposure to SARS-CoV-2 (event) Not sure [facility] Start: 03-18-2015 End: 08-26-2023 Tobacco use panel [facility] Start: 1955 Sex Assigned At Male S [facility] [employer] Start: 02-04-2023 Gender identity Identifies as male gender (finding) [facility] Start: 02-04-2023 Sexual orientation Heterosexual (fin ding) [facility] Tobacco smoking stat us [facility] Tobacco smoking consumption unknown [facility] History of Present illness Narrative 08-26-2023 Kel Nielsen MD - 08/26/2023 3:15 PM EDT Note Date & Type Note Facility 08-26-2023 History of Presen t illness Narrative Images from the original note were not included. [facility] [address] [place] [address] Dept: [phone] Dept Chief Complaint Patient presents with Follow-up USG left subtalar joint injection Subjective History of Present Illness: Albin Issa is a 68 y.o. male who presents today for ultrasound guided injection of left subtalar. He rates symptoms as a 3/10 at rest and a 3/10 at worst. Imaging to date: X-ray May 2022 Prior targeted injections: Corticosteroid . Helpful.. Previous injection dates: May 2022, January 2023 Fall risk assessment: Completed in the past 12 months Objective There were no vitals taken for this visit. Physical Exam: No sign of infection overlying injection site. External Notes None available Labs No results found for: HGBA1C Lab Results Component Value Date CREATININE 1.13 05/25/2021 Imaging No new imaging since last visit EMG/NCT N/A Procedure Procedure completed today, details below Use of ultrasound visualization of the needle was required to increase patient's safety by excluding inadvertent intermuscular or intertendinous placement and minimizing bleeding and injury by avoiding osteochondral and nearby neurovascular structures. Guidance also maximizes accurate injection placement and likely clinical benefit beyond that obtained from a non-guided injection. This allows increased diagnostic specificity when evaluating effectiveness of the injection. Verbal and written consent was obtained from the patient. Consent included possibility of bleeding, infection, hypoglycemia, hyperglycemia, increased pain, steroid flare, and permanent hypopigmentation and fat atrophy. Using real-time ultrasound I localized the subtalar joint. Sterile prep and freeze spray for analgesia. Using a 27-gauge 1 inch needle I injected the left subtalar joint after aspiration without withdraw with 0.5 cc of Celestone and 0.5 cc of 1% lidocaine. The patient tolerated the procedure well. Pertinent images saved. Assessment Diagnosis Plan 1. Arthritis of left subtalar joint lidocaine (Xylocaine) 1 % injection 0.5 mL betamethasone acetate-betamethasone sodium phosphate (Celestone) injection 3 mg Plan Ultrasound-guided left subtalar injection today. Postinjection instructions reviewed. We discussed watching for any concerns around the injection site. She can use ice or Tylenol for pain or discomfort. Follow-up with a phone call in 2 weeks. Follow up if symptoms worsen or fail to improve. Kel Nielsen MD 08/26/2023 3:32 PM Please note that portions of this note may have been completed with voice recognition software. Documentation reviewed prior to signing but minor errors in rn otolaryngology may have occurred. documented in this encounter [facility] Instructions 08-26-2023 Patient Instructions Note Date & Type Note Facility 08-26-2023 Instructions Kel Nielsen MD - 08/26/2023 3:15 PM EDT Orthopaedics and Sports Medicine Patient Care Instructions Following a Cortisone Injection Take it easy for the next 2-3 days and do not increase your activity level even if you notice a significant improvement. The numbing medicine in the injection will wear off in 1-2 hours and you may experience tenderness later today. Ice the area for 15-20 minutes when needed this afternoon and again later tonight Do not use heating pads, hot tubs or whirlpools The steroid can take up to 3-5 days to take effect If you have diabetes, the injection may temporarily increase your blood sugar levels If you have high blood pressure, the injection may temporarily increase you blood pressure If you are referred to physical therapy, please wait 3 days after your injection to start your first physical therapy appointment Please observe your injection site for redness, swelling, and increase warmth, If you notice any of these symptoms at the joint that last longer than 2 days or if you develop a fever, please call the office as soon as possible at [phone] documented in this encounter [facility] History of Present illness Narrative 06-01-2021 Kenan Jacobsen RN - 06/01/2021 1:16 AM Agnieszka Manzanares RCP - 05/31/2021 10:52 PM Agnieszka Manzanares RCP - 05/30/2021 9:15 PM Mary Anne Myers RN - 05/30/2021 2:36 PM EDT Note Date & Type Note Facility 06-01-2021 History of Present illness Narrative Pt discharged to [place] manner via [place] on a cot. Pt verified to have all belongings and IV removed. [facility] Respiratory Care Department Progress Note Patient was seen in attempts to fulfill CPAP/BiPAP/AutoPAP order. Patient refused PAP therapy/study at this time. Patient was educated on medical need and reasoning for physician order to ensure patient was making an informed medical decision. All of the patient's questions were answered at this time and patient was informed that if the patient changes their mind regarding wearing PAP to hit their call light or inform their nurse to contact Respiratory. A second, consecutive night of refusing PAP therapy/study results in order completion in the EMR. If future CPAP/BiPAP/AutoPAP therapy or study is indicated please place another order in the EMR and the assigned Respiratory Therapist will reattempt to fulfill orders. Comment or reasoning for refusal: pt does not want to wear machine. Thank you for involving Respiratory in the care of this patient, [facility] Respiratory Care Department Progress Note Patient was seen in attempts to fulfill CPAP/BiPAP/AutoPAP order. Patient refused PAP therapy/study at this time. Patient was educated on medical need and reasoning for physician order to ensure patient was making an informed medical decision. All of the patient's questions were answered at this time and patient was informed that if the patient changes their mind regarding wearing PAP to hit their call light or inform their nurse to contact Respiratory. A second, consecutive night of refusing PAP therapy/study results in order completion in the EMR. If future CPAP/BiPAP/AutoPAP therapy or study is indicated please place another order in the EMR and the assigned Respiratory Therapist will reattempt to fulfill orders. Comment or reasoning for refusal: pt wore machine last night ans pt said he could not get mask to fit correctly willl have someone bring him his machine form home. Thank you for involving Respiratory in the care of this patient, Patient had a large bowel movement with mag citrate and suppositories. Patient wanted to hold off on the enema for now. Nutrition update completed. Chart reviewed. Patient to be monitored and followed by the diet emergency department technician. Spoke to patient regarding the post operative plan. Discharge instructions and follow up were explained. We discussed the natural course of injury and expectations moving forward. Patient voiced their understanding and is agreeable with the current plan. All questions were answered. Patient was advised to contact our office with any questions or concerns. Sd Moreno PA-C Orthopedic Surgery Physical Therapy Facility/Department: [facility] TELEMETRY Daily Treatment Note NAME: Albin Issa : 1955 Date of Service: 05/29/2021 Discharge Recommendations: IP Rehab PT Equipment Recommendations Other: TBD at next level of care Assessment Body structures, Functions, Activity limitations: Decreased functional mobility ;Decreased ADL status;Decreased endurance;Decreased strength;Decreased balance Assessment: Pt requires mod assist for most all mobility at this time. Pt is unsteady and at high risk for falls. Pt needed frequent cues to not push through LUE/elbow during transfer. No PT goals met this session. Safest device may be wheelchair for pt at this time. Recommend facility based therapy at discharge. Treatment Diagnosis: Fall with closed fracture of lower epiphysis of humerus s/p ORIF on 05/24 Specific instructions for Next Treatment: Gait training using hemiwalker REQUIRES PT FOLLOW UP: Yes Activity Tolerance Activity Tolerance: Patient Tolerated treatment well Activity Tolerance: Limited by NWB status of LUE Patient Diagnosis(es): There were no encounter diagnoses. has a past medical history of Arthritis, CAD (coronary artery disease), Cancer (HCC), Cardiac defibrillator in place, Cellulitis, Chronic acquired lymphedema, GERD (gastroesophageal reflux disease), High cholesterol, History of blood transfusion, History of kidney stones, Hypertension, TARAN on CPAP, Pacemaker, Radiation, Restless leg syndrome, Rotator cuff injury, and Wound, open with complication. has a past surgical history that includes Pacemaker insertion (2008); joint replacement (Left, 09/2009); Percutaneous Transluminal Coronary Angio (2004); Leg Surgery (Right, 1998); Soft Tissue Tumor Resection (Right, 06/1997); Soft Tissue Biopsy (Right, 05/1997); shoulder surgery (Left); Cardiac defibrillator placement (2010); Cardiac surgery (2004); shoulder surgery (Right, ); above knee amputation (Right, 01/26/2019); Leg Surgery (Right, 01/28/2019); Colonoscopy; other surgical history (Right, 03/05/2019); pacemaker placement; Intracapsular cataract extraction; other surgical history (05/07/2019); and orif humerus decompression (Left, 05/24/2021). Restrictions Restrictions/Precautions Restrictions/Precautions: Weight Bearing, Fall Risk, Up as Tolerated Required Braces or Orthoses?: Yes (RLE prosthesis, LUE sling) Lower Extremity Weight Bearing Restrictions Right Lower Extremity Weight Bearing: Weight Bearing As Tolerated Left Lower Extremity Weight Bearing: Weight Bearing As Tolerated Upper Extremity Weight Bearing Restrictions Right Upper Extremity Weight Bearing: Weight Bearing As Tolerated Left Upper Extremity Weight Bearing: Non Weight Bearing Required Braces or Orthoses Left Upper Extremity Brace/Splint: Sling Position Activity Restriction Other position/activity restrictions: RLE prosthesis. Per ortho note, full ROM shoulder --> fingers Subjective General Chart Reviewed: Yes Additional Pertinent Hx: Previous R AKA, pacemaker Response To Previous Treatment: Patient with no complaints from previous session. Family / Caregiver Present: No Subjective Subjective: Pt supine in bed. Agreeable to PT with encouragement. Pt initially was declining to get OOB, then agreed. General Comment Comments: Order clarified for NWB LUE- per ortho, pt is NWB LUE and is not allowed to use platform walker Pain Screening Patient Currently in Pain: Denies Vital Signs Patient Currently in Pain: Denies Orientation Cognition Cognition Overall Cognitive Status: WFL Objective Bed mobility Rolling to Right: Minimal assistance Supine to Sit: Moderate assistance Sit to Supine: Minimal assistance Scooting: Moderate assistance Transfers Sit to Stand: Moderate Assistance Stand to sit: Moderate Assistance Comment: sit to stand x 2 reps from EOB and verbal cues to keep pt NWB LUE Ambulation Ambulation?: No WB Status: NWB LUE Balance Comments: sitting EOB with SBA to supervision, pt did require some assist while sitting at EOB and donning RLE prosthesis, static stand with mod assist x 1 Exercises Straight Leg Raise: x 10 LLE Quad Sets: x 10 LLE Heelslides: x 10 LLE Hip Flexion: LLE x 10 reps Knee Long Arc Quad: LLE x 10 reps Ankle Pumps: LLE x 10 reps G-Code OutComes Score AM-PAC Score [facility] Inpatient Mobility Raw Score : 8 (05/29/211513) AM-PAC Inpatient T-Scale Score : 28.52 (05/29/211513) Mobility Inpatient CMS 0-100% Score: 86.62 (05/29/211513) Mobility Inpatient CMS G-Code Modifier : CM (05/29/211513) Goals Short term goals Time Frame for Short term goals: 2 weeks Short term goal 1: Perform bed mobility with SBA- NOT MET Short term goal 2: Perform transfers with min A- NOT MET Short term goal 3: Ambulate 30 feet using hemiwalker with min A- NOT MET Patient Goals Patient goals : To go home Plan Plan Times per week: 7 Times per day: Daily Plan weeks: 2 Specific instructions for Next Treatment: Gait training using hemiwalker Current Treatment Recommendations: Strengthening, Transfer Training, Endurance Training, ROM, Patient/Caregiver Education & Training, Balance Training, Gait Training, Functional Mobility Training, Safety Education & Training Safety Devices Type of devices: All fall risk precautions in place, Gait belt, Call light within reach, Left in bed, Nurse notified Restraints Initially in place: No Therapy Time Individual Concurrent Group Co-treatment Time In 1428 Time Out 1457 Minutes 29 Timed Code Treatment Minutes: (FA, TP) *PPE per facility policy used during session* Arabella Dai PTA Ortho to bedside to discuss plans moving forward with patient. Patient was concerned about his ability to get around without being able to put weight through left arm. Patient understands that we will keep him NWB in the left arm in order to protect fixation and allow for it to heal. Patient expressed understanding and will be sure to stay off of the left upper extremity. Ortho to remain signed off at this time. Please page resident cement contractor with any questions or concerns. Rafy Gloria MD Orthopaedic Surgery PGY-1 *[phone] Images from the original note were not included. Daily Trauma Progress Note Nurse Practitioner 05/28/2021 6:58 AM Admit Date: 05/23/2021 Post Trauma Day 5 Fall SH HISTORY OF TRAUMATIC EVENT: 66 y.o. male status post fall from standing. The incident happened around afternoon on 05/23/21 at home. When the event happened the patient was bending down to pickle solution maker a delivery box when his Rolator got away from him. He ended up riding the Rolator down the step ramp off his front porch and nose dived over the handlebars. He did not hit his head, his nose brushed the ground . INJURIES: Left humerus fracture PROCEDURES: ORIF Left humerus shaft fracture INCIDENTAL FINDINGS: None CHIEF COMPLAINT: would like to go home but is agreeable to placement PREVIOUS 24 HOUR EVENTS: NAEON Consults: IP CONSULT TO ORTHOPEDIC SURGERY IP CONSULT TO RESPIRATORY CARE IP CONSULT TO CARDIOLOGY MEDICATIONS: Current Facility-Administered Medications Medication Dose Route Frequency Provider Last Rate Last Admin furosemide (LASIX) tablet 40 mg 40 mg Oral BID MARISELA Balderrama NP 40 mg at 05/27/21 175 enoxaparin (LOVENOX) injection 30 mg 30 mg Subcutaneous BID MARISELA Croft FELT FINISHING SUPERVISOR 30 mg at 05/27/212008 atorvastatin (LIPITOR) tablet 40 mg 40 mg Oral Nightly Sd Moreno PA-C 40 mg at 05/27/212007 buPROPion (WELLBUTRIN SR) extended release tablet 150 mg 150 mg Oral BID Sd Moreno PA-C 150 mg at 05/27/212008 carvedilol (COREG) tablet 3.125 mg 3.125 mg Oral BID Sd Moreno PA-C 3.125 mg at 05/27/21 175 clopidogrel (PLAVIX) tablet 75 mg 75 mg Oral Daily MIKA Del Cid-C 75 mg at 05/27/21913 escitalopram (LEXAPRO) tablet 20 mg 20 mg Oral Daily MIKA Del Cid-C 20 mg at 05/27/21913 gabapentin (NEURONTIN) capsule 300 mg 300 mg Oral Nightly MIKA Del Cid-C 300 mg at 05/27/212008 isosorbide mononitrate (IMDUR) extended release tablet 60 mg 60 mg Oral BID MIKA Del Cid-C 60 mg at 05/27/212008 cetirizine (ZYRTEC) tablet 10 mg 10 mg Oral Daily MIKA Del Cid-C 10 mg at 05/27/21913 [Held by provider] meloxicam (MOBIC) tablet 15 mg 15 mg Oral Daily Sd Moreno PA-C niacin (NIASPAN) extended release tablet 1,000 mg 1,000 mg Oral Nightly JANICE Del CidC 1,000 mg at 05/27/212008 potassium chloride (KLOR-CON M) extended release tablet 40 mEq 40 mEq Oral Daily MIKA Del Cid-C 40 mEq at 05/27/21913 ramipril (ALTACE) capsule 2.5 mg 2.5 mg Oral Daily JANICE Del CidC 2.5 mg at 05/27/21913 ranolazine (RANEXA) extended release tablet 1,000 mg 1,000 mg Oral BID JANICE Del CidC 1,000 mg at 05/27/212007 sodium chloride flush 0.9 % injection 5-40 mL 5-40 mL Intravenous 2 times per day JANICE Del CidC 5 mL at 05/27/212011 sodium chloride flush 0.9 % injection 5-40 mL 5-40 mL Intravenous PRN MIKA Del Cid-C 0.9 % sodium chloride infusion 25 mL Intravenous PRN Sd Moreno PA-C acetaminophen (TYLENOL) tablet 1,000 mg 1,000 mg Oral 3 times per day MIKA Del Cid-C 1,000 mg at 05/28/21 0532 oxyCODONE (ROXICODONE) immediate release tablet 5 mg 5 mg Oral Q4H PRN Sd Josh, PA-C Or oxyCODONE (ROXICODONE) immediate release tablet 10 mg 10 mg Oral Q4H PRN Sd Moreno PA-C 10 mg at 05/28/21 0115 ondansetron (ZOFRAN) injection 4 mg 4 mg Intravenous Q6H PRN Sd Moreno PA-C aspirin EC tablet 81 mg 81 mg Oral Daily Sd Moreno PA-C 81 mg at 05/27/21 0918 senna (SENOKOT) tablet 8.6 mg 1 tablet Oral Nightly Sd Moreno PA-C 8.6 mg at 05/27/212008 polyethylene glycol (GLYCOLAX) packet 17 g 17 g Oral Daily Sd Moreno PA-C 17 g at 05/27/21 0915 docusate sodium (COLACE) capsule 100 mg 100 mg Oral BID Sd Moreno PA-C 100 mg at 05/27/212007 LORazepam (ATIVAN) tablet 0.5 mg 0.5 mg Oral Nightly PRN Renny Biswas MD 0.5 mg at 05/25/21 9286 ARE THERE PERTINENT UPDATES TO PAST,FAMILY, OR SOCIAL HISTORY?: No Subjective: Pain is well controlled, agreeable to placement. Tolerating PO, denies any nausea or vomiting. Review of Systems Musculoskeletal: Positive for arthralgias and myalgias. All other systems reviewed and are negative. PHQ In the last 2 weeks have you had: 1. Little interest or pleasure in doing things No 2. Been feeling down, depressed, or hopeless No If greater then 0, place CLP consult Date PHQ completed: 05/25 Objective: Patient Vitals for the past 24 hrs: BP Temp Temp src Pulse Resp SpO2 05/28/21 0617 108/66 97.2 F (36.2 C) Temporal 73 18 95 % 05/28/21 0144 (!) 109/59 97.2 F (36.2 C) Temporal 77 20 95 % 05/27/21 2158 110/76 97.7 F (36.5 C) Temporal 75 20 96 % 05/27/21 1803 108/81 98.8 F (37.1 C) Temporal 85 18 95 % 05/27/21 1417 110/78 99.7 F (37.6 C) Temporal 70 20 98 % 05/27/21 0959 111/66 97.4 F (36.3 C) Temporal 65 18 96 % Date 05/28/21 0000 - 05/28/21 2359 Shift 7645-6504 4783-1377 7937-4727 24 Hour Total INTAKE P.O. 200 200 Shift Total(mL/kg) 200(1.6) 200(1.6) OUTPUT Urine(mL/kg/hr) 800 800 Shift Total(mL/kg) 800(6.3) 800(6.3) Weight (kg) 126.1 126.1 126.1 126.1 Last BM: MANAGER ICU Diet: Reg CVP: No Chest Tubes: R: No Output: na Air Leak: na N/A L: No Output: na Air Leak: na N/A PHYSICAL: Physical Exam Vitals and nursing note reviewed. Constitutional: General: He is not in acute distress. Appearance: He is obese. He is not ill-appearing. HENT: Head: Normocephalic and atraumatic. Mouth/Throat: Mouth: Mucous membranes are moist. Eyes: Extraocular Movements: Extraocular movements intact. Pupils: Pupils are equal, round, and reactive to light. Cardiovascular: Rate and Rhythm: Normal rate. Pulses: Normal pulses. Pulmonary: Effort: Pulmonary effort is normal. Chest: Chest wall: No tenderness. Abdominal: Palpations: Abdomen is soft. Musculoskeletal: General: Tenderness and signs of injury present. Cervical back: Normal range of motion. No rigidity or tenderness. Comments: Left arm wrapped in splint and michael wrap, sling in place, MSPs intact Skin: General: Skin is warm and dry. Capillary Refill: Capillary refill takes less than 2 seconds. Neurological: Mental Status: He is alert and oriented to person, place, and time. Sutures or dora? Yes, incisional O2: RA / / / Data Review Data CBC with Differential: Lab Results Component Value Date WBC 10.4 05/25/2021 RBC 3.90 05/25/2021 HGB 11.9 05/25/2021 HCT 34.4 05/25/2021 PLT 171 05/25/2021 CMP: Lab Results Component Value Date NA 137 05/25/2021 K 4.5 05/25/2021 CL 109 05/25/2021 CO2 23 05/25/2021 BUN 15 05/25/2021 CREATININE 1.13 05/25/2021 GLUCOSE 122 05/25/2021 LABALBU 3.0 01/28/2019 CALCIUM 9.4 05/25/2021 BMP: Hepatic Function Panel:Ionized Calcium: No results found for: IONCA Magnesium: Lab Results Component Value Date MG 2.0 05/25/2021 Phosphorus: Lab Results Component Value Date PHOS 1.8 05/25/2021 PT/INR: Lab Results Component Value Date PROTIME 11.2 05/24/2021 INR 1.0 05/24/2021 PTT: No results found for: APTT[APTT Last 3 Troponin: No results found for: TROPONINI Urine Culture: No components found for: CURINE Blood Culture: No components found for: CBLOOD, CFUNGUSBL Blood Culture from Central Line: No components found for: CBLOODLN Stool Culture: No components found for: CSTOOL Sputum Culture: No components found for: CSPUTUM Sputum Culture for AFB: No components found for: CAFBSM Wound Culture: Radiology: XR HUMERUS LEFT (MIN 2 VIEWS) Result Date: 05/24/2021 Patient Name: ALBIN ISSA Diagnostic Radiology ACCESSION EXAM DATE/TIME PROCEDURE ORDERING PROVIDER [id number] 05/24/2021 17:43 EDT CR Humerus 2+ Views Left [id number] -SD MORENO CPT code 85459 Reason For Exam (CR Humerus 2+ Views Left) s/p ORIF left distal humeral shaft fx Report Left humerus CLINICAL INDICATION: Open reduction and internal fixation COMPARISON: Left elbow 05/24/2021 AP and lateral views of the left humerus were obtained. Metallic plate has been placed along the lateral aspect of the mid and distal humeral shaft and the lateral condyle fixed with multiple screws. The distal humeral shaft fracture is aligned anatomically. Skin dora are noted in the lateral soft tissues or in the shoulder and elbow joints are intact. IMPRESSION: Internal fixation of the distal humeral fracture with anatomic alignment Report Dictated on --- Final --- Dictated: 05/24/2021 5:44 pm Dictating Physician: MD ROJAS DIANE Signed Date and Time: 05/24/2021 5:46 pm Signed by: MD ROJAS DIANE Transcribed Date and Time: 05/24/2021 5:44 XR ELBOW LEFT (MIN 3 VIEWS) Result Date: 05/24/2021 Patient Name: ALBIN ISSA [facility]#: [id number] Diagnostic Radiology ACCESSION EXAM DATE/TIME PROCEDURE ORDERING PROVIDER [id number] 05/24/2021 05:59 EDT CR Elbow 3+ Views Left MD FONTANA ALEX CPT code 22989 Reason For Exam (CR Elbow 3+ Views Left) L elbow pain Report Indication: Left elbow pain. AP, lateral and oblique views of the left elbow. Images show an oblique nondisplaced fracture of the distal diaphysis of the humerus. Elbow joint space is narrowed. Proximal aspect of the radius and ulna appear intact. No joint effusion. IMPRESSION: Displaced fracture of the distal humerus. Report Dictated on --- Final --- Dictated: 05/24/2021 8:44 am Dictating Physician: MD HOPKINS LAURA Signed Date and Time: 05/24/2021 8:47 am Signed by: MD HOPKINS LAURA Transcribed Date and Time: 05/24/2021 8:44 XR Chest 1 VW Result Date: 05/24/2021 Patient Name: ALBIN ISSA [facility]#: [id number] Diagnostic Radiology ACCESSION EXAM DATE/TIME PROCEDURE ORDERING PROVIDER [id number] 05/24/2021 05:59 EDT CR Chest 1 View Frontal MD FONTANA ALEX CPT code 92442 Reason For Exam (CR Chest 1 View Frontal) preop Report INDICATION:Preop PORTABLE CHEST: COMPARISON: 03/19/2004 Distortion and prominence of bronchovascular markings is similar to the prior examination and may be chronic. No romy edema. No gross pleural effusions. No focal areas of consolidation. Heart size is mildly enlarged and stable. Midline sternotomy wires are present. Bipolar pacemaker leads appear in satisfactory position. IMPRESSION: Prominent bronchovascular markings, likely chronic. Mild venous congestion is a possibility. No romy edema or focal areas of consolidation. Report Dictated on --- Final --- Dictated: 05/24/2021 8:47 am Dictating Physician: MD HOPKINS LAURA Signed Date and Time: 05/24/2021 8:49 am Signed by: MD HOPKINS LAURA Transcribed Date and Time: 05/24/2021 8:47 Patient Active Problem List Diagnosis Primary osteoarthritis of left hip S/P AKA (above knee amputation), right (HCC) MRSA (methicillin resistant Staphylococcus aureus) infection Closed fracture of lower epiphysis of humerus Left supracondylar humerus fracture, closed, initial encounter Ischemic cardiomyopathy Acute traumatic pain ASSESSMENT: 66 year old male s/p fall from standing with left humerus fracture PLAN: Neuro/Spine: - Pain control with scheduled Tylenol, prn oxy - Neurovascular checks - Home wellbutrin, lexapro - Nightly ativan- sub for home restoril HEENT: - No issues Cardiovascular: - Cardiac history-cards consult for surgical clearance obtained and signed off - Restart Lasix and Plavix - HDS - Home coreg, imdur, ramipril and ranexa Pulmonary: - IS, C&DB - CPAP nightly FEN/GI: - Reg diet - Bowel regimen- increased 05/28 - Zofran PRN : - CrCl: 87 - DC daily labs Heme: - Hgb: 11.9 from 12.8 - DC daily labs ID: - Ancef per ortho, last dose 05/25 at 0700 Endo: - No issues Lines/Devices: - PIV Prophylaxis: DVT: Lovenox Has DVT PPX been started? Yes If no, why? na GI: None Pressure Ulcer: None Musculoskeletal: - Left humerus fracture-s/p ORIF 05/24, NWB, remove dressing POD#2 - PT/OT rec IP rehab WB Status: RUE:AT LUE: NWB RLE: AT LLE: AT Disposition: PT rec IP rehab, patient agreeable, dispo planning Associated attestation - Mary Anne Hardy MD - 05/29/2021 2:43 PM EDT ~~~~~~~~~~~~~~~~~~~~~~~~~~~~~~~~~ ~~~~~~~~~~~~~~~~~~~~~~~~~~~~ ATTENDING ADDENDUM CC: Fall Active Diagnoses/Problems this Admission: Hospital Problems Last Modified POA Closed fracture of lower epiphysis of humerus 05/24/2021 Yes Left supracondylar humerus fracture, closed, initial encounter 05/24/2021 Yes Ischemic cardiomyopathy 05/25/2021 Yes Acute traumatic pain 05/25/2021 Yes Chronic systolic congestive heart failure (HCC) 05/29/2021 Yes I personally supervised the COMPUTER CUSTOMER SUPPORT SPECIALIST/PA-C in the evaluation and development of a treatment plan for this patient on the same day of service as above. I personally discussed the review of systems and interviewed the patient along with performing a physical examination. I reviewed the recent events, imaging, labs, vital signs. In addition, I discussed the patient's condition and treatment options with him/her when possible. I have also reviewed and agree with the past medical, family, and social history unless otherwise noted. All of the patient's questions were answered and family updated when appropriate and possible. 66M s/p mech fall with left humerus fx pmhx of TARAN on CPAP, CAD, GERD, HTN Patient has right AKA Multimodal pain control Restart home medications - start Plavix and Lasix 40 BID Appreciate orthopedic recommendations - Sling as needed, remove dressing postoperative day 2 - Ice and elevate - Follow-up in 2 weeks - abx 24 hours --> finished - NWB PTOT - IP rehab Appreciate cards recs - avoid excess fluids, restart home medications, follow outpatient CPAP at night Placement pending Mary Anne Hardy MD Division of Trauma Department of Surgery [facility] Pager: [phone] ~~~~~~~~~~~~~~~~~~~~~~~~~~~~~~~~~ ~~~~~~~~~~~~~~~~~~~~~~~~~~~~ This note may have been dictated using [employer] Edition 2.6 and/or [employer] [place] Voice Recognition Feature. The document was proofread; however, unrecognized voice recognition rn otolaryngology errors may be present. Physical Therapy Facility/Department: [facility] TELE[facility] Daily Treatment Note NAME: Albin Issa : 1955 Date of Service: 05/27/2021 Discharge Recommendations: IP Rehab PT Equipment Recommendations Other: TBD at next level of care Assessment Body structures, Functions, Activity limitations: Decreased functional mobility ;Decreased ADL status;Decreased endurance;Decreased strength;Decreased balance Assessment: Pt does like the pyramid cane or hemiwalker, states they are a trap . Pt still wanting to use his bilateral platform rollator and thinks he can put his wrist and lower forearm on it with LUE. Advised pt to speak with ortho Dr's about it but for now he is NWB on LUE. Did not let pt try his rollator. Safest device for pt currently may be a wheelchair. He demonstrates decreased balance and strength and is unable to keep LUE NWB. Recommend facility based PT at discharge. Treatment Diagnosis: Fall with closed fracture of lower epiphysis of humerus s/p ORIF on 05/24 Specific instructions for Next Treatment: Gait training using hemiwalker Prognosis: Good Decision Making: Medium Complexity REQUIRES PT FOLLOW UP: Yes Activity Tolerance Activity Tolerance: Patient Tolerated treatment well Activity Tolerance: Limited by NWB status of LUE Patient Diagnosis(es): There were no encounter diagnoses. has a past medical history of Arthritis, CAD (coronary artery disease), Cancer (HCC), Cardiac defibrillator in place, Cellulitis, Chronic acquired lymphedema, GERD (gastroesophageal reflux disease), High cholesterol, History of blood transfusion, History of kidney stones, Hypertension, TARAN on CPAP, Pacemaker, Radiation, Restless leg syndrome, Rotator cuff injury, and Wound, open with complication. has a past surgical history that includes Pacemaker insertion (2008); joint replacement (Left, 09/2009); Percutaneous Transluminal Coronary Angio (2004); Leg Surgery (Right, 1998); Soft Tissue Tumor Resection (Right, 06/1997); Soft Tissue Biopsy (Right, 05/1997); shoulder surgery (Left); Cardiac defibrillator placement (2010); Cardiac surgery (2004); shoulder surgery (Right, ); above knee amputation (Right, 01/26/2019); Leg Surgery (Right, 01/28/2019); Colonoscopy; other surgical history (Right, 03/05/2019); pacemaker placement; Intracapsular cataract extraction; other surgical history (05/07/2019); and orif humerus decompression (Left, 05/24/2021). Restrictions Restrictions/Precautions Restrictions/Precautions: Weight Bearing, Fall Risk, Up as Tolerated Required Braces or Orthoses?: Yes (RLE prosthesis, LUE sling) Lower Extremity Weight Bearing Restrictions Right Lower Extremity Weight Bearing: Weight Bearing As Tolerated Left Lower Extremity Weight Bearing: Weight Bearing As Tolerated Upper Extremity Weight Bearing Restrictions Right Upper Extremity Weight Bearing: Weight Bearing As Tolerated Left Upper Extremity Weight Bearing: Non Weight Bearing Required Braces or Orthoses Left Upper Extremity Brace/Splint: Sling Position Activity Restriction Other position/activity restrictions: RLE prosthesis. Per ortho note, full ROM shoulder --> fingers Subjective General Chart Reviewed: Yes Additional Pertinent Hx: Previous R AKA, pacemaker Family / Caregiver Present: No Subjective Subjective: Pt supine in bed. Agreeable to PT. Willing to try hemiwalker this session. However pt still adament that it would be safe to use his eduardo platform rollator and wants to rest his wrist and forearm (not elbow) on platform. Advised pt to speak to the ortho Dr's about it. General Comment Comments: Order clarified for NWB LUE- per ortho, pt is NWB LUE and is not allowed to use platform walker Pain Screening Patient Currently in Pain: Denies Vital Signs Patient Currently in Pain: Denies Orientation Orientation Overall Orientation Status: Within Normal Limits Objective Bed mobility Supine to Sit: Moderate assistance Scooting: Moderate assistance Comment: HOB elevated: Pt uses RUE to self support using bed rails and therapist arm. Additional verbal cues needed to maintain NWB on LUE. Transfers Sit to Stand: Moderate Assistance Stand to sit: Moderate Assistance Comment: cues for right UE push off and to keep LUE NWB. Pt tends to want to pull with fingertips on hemiwalker with left hand. Ambulation Ambulation?: Yes WB Status: NWB LUE Ambulation 1 Surface: level tile Device: Hemiwalker Assistance: Moderate assistance Quality of Gait: Flexed trunk, decreased bilat hip extension Gait Deviations: Slow Stephanie;Decreased step length;Decreased step height Distance: 4 ft forward and backwards, turned to recliner Stairs/Curb Stairs?: No Balance Comments: Sitting EOB pt needed min assist to don liner and sock of prosthesis. Standing, mod assist for balance while pt weight shifted his RLE into prosthesis. Worked on standing posture and placing RUE poacher wringer operator on center handle of hemiwalker and keeping LUE tucked to abdomen. Exercises Hip Flexion: LLE x 10 reps Knee Long Arc Quad: LLE x 10 reps Ankle Pumps: LLE x 10 reps Comments: all while seated in recliner AM-PAC Score AM-PAC Inpatient Mobility Raw Score : 8 (05/27/21 1231) AM-PAC Inpatient T-Scale Score : 28.52 (05/27/21 1231) Mobility Inpatient CMS 0-100% Score: 86.62 (05/27/21 1231) Mobility Inpatient CMS G-Code Modifier : CM (05/27/21 [facility]) Goals Short term goals Time Frame for Short term goals: 2 weeks Short term goal 1: Perform bed mobility with SBA- NOT MET Short term goal 2: Perform transfers with min A- NOT MET Short term goal 3: Ambulate 30 feet using hemiwalker with min A- NOT MET Patient Goals Patient goals : To go home Plan Plan Times per week: 7 Times per day: Daily Plan weeks: 2 Specific instructions for Next Treatment: Gait training using hemiwalker Current Treatment Recommendations: Strengthening, Transfer Training, Endurance Training, ROM, Patient/Caregiver Education & Training, Balance Training, Gait Training, Functional Mobility Training, Safety Education & Training Safety Devices Type of devices: All fall risk precautions in place, Gait belt, Call light within reach, Left in chair Restraints Initially in place: No Therapy Time Individual Concurrent Group Co-treatment Time In 1110 Time Out 1136 Minutes 26 Timed Code Treatment Minutes: 26 Minutes (FA x 2) *PPE worn per facility policy during session* Ruma Ahuja PTA Images from the original note were not included. Daily Trauma Progress Note Nurse Practitioner 05/27/2021 6:26 AM Admit Date: 05/23/2021 Post Trauma Day 4 Fall SH HISTORY OF TRAUMATIC EVENT: 66 y.o. male status post fall from standing. The incident happened around afternoon on 05/23/21 at home. When the event happened the patient was bending down to pickle solution maker a delivery box when his Rolator got away from him. He ended up riding the Rolator down the step ramp off his front porch and nose dived over the handlebars. He did not hit his head, his nose brushed the ground . INJURIES: Left humerus fracture PROCEDURES: ORIF Left humerus shaft fracture INCIDENTAL FINDINGS: None CHIEF COMPLAINT: would like to go home but is agreeable to placement PREVIOUS 24 HOUR EVENTS: PT rec IP rehab Consults: IP CONSULT TO ORTHOPEDIC SURGERY IP CONSULT TO RESPIRATORY CARE IP CONSULT TO CARDIOLOGY MEDICATIONS: Current Facility-Administered Medications Medication Dose Route Frequency Provider Last Rate Last Admin furosemide (LASIX) tablet 40 mg 40 mg Oral BID MARISELA Balderrama WEB DESIGN INTERN 40 mg at 05/26/21 161 enoxaparin (LOVENOX) injection 30 mg 30 mg Subcutaneous BID MARISELA Croft FELT FINISHING SUPERVISOR 30 mg at 05/26/21 221 atorvastatin (LIPITOR) tablet 40 mg 40 mg Oral Nightly MIKA Del Cid-C 40 mg at 05/26/212201 buPROPion (WELLBUTRIN SR) extended release tablet 150 mg 150 mg Oral BID MIKA Del Cid-C 150 mg at 05/26/21 220 carvedilol (COREG) tablet 3.125 mg 3.125 mg Oral BID WC Sd Moreno PA-C 3.125 mg at 05/26/21 1611 clopidogrel (PLAVIX) tablet 75 mg 75 mg Oral Daily Sd Moreno PA-C 75 mg at 05/26/21 0951 escitalopram (LEXAPRO) tablet 20 mg 20 mg Oral Daily Sd Moreno PA-C 20 mg at 05/26/21 0952 gabapentin (NEURONTIN) capsule 300 mg 300 mg Oral Nightly Sd Moreno PA-C 300 mg at 05/26/21 220 isosorbide mononitrate (IMDUR) extended release tablet 60 mg 60 mg Oral BID Sd Moreno PA-C 60 mg at 05/26/21 220 cetirizine (ZYRTEC) tablet 10 mg 10 mg Oral Daily Sd Moreno PA-C 10 mg at 05/26/21 1021 [Held by provider] meloxicam (MOBIC) tablet 15 mg 15 mg Oral Daily Sd Moreno PA-C niacin (NIASPAN) extended release tablet 1,000 mg 1,000 mg Oral Nightly MIKA Del Cid-C 1,000 mg at 05/26/21 2214 potassium chloride (KLOR-CON M) extended release tablet 40 mEq 40 mEq Oral Daily Sd Moreno PA-C 40 mEq at 05/26/21 0952 ramipril (ALTACE) capsule 2.5 mg 2.5 mg Oral Daily Sd Moreno PA-C 2.5 mg at 05/26/21 1021 ranolazine (RANEXA) extended release tablet 1,000 mg 1,000 mg Oral BID Sd Moreno PA-C 1,000 mg at 05/26/21 2202 sodium chloride flush 0.9 % injection 5-40 mL 5-40 mL Intravenous 2 times per day Sd Moreno PA-C 5 mL at 05/26/21 1002 sodium chloride flush 0.9 % injection 5-40 mL 5-40 mL Intravenous PRN Sd Moreno PA-C 0.9 % sodium chloride infusion 25 mL Intravenous PRN Sd Moreno PA-C acetaminophen (TYLENOL) tablet 1,000 mg 1,000 mg Oral 3 times per day Sd Moreno PA-C 1,000 mg at 05/27/21 0544 oxyCODONE (ROXICODONE) immediate release tablet 5 mg 5 mg Oral Q4H PRN dS Moreno PA-C Or oxyCODONE (ROXICODONE) immediate release tablet 10 mg 10 mg Oral Q4H PRN Sd Moreno PA-C 10 mg at 05/26/21 1611 ondansetron (ZOFRAN) injection 4 mg 4 mg Intravenous Q6H PRN Sd Moreno PA-C aspirin EC tablet 81 mg 81 mg Oral Daily Sd Moreno PA-C 81 mg at 05/26/21 0951 senna (SENOKOT) tablet 8.6 mg 1 tablet Oral Nightly Sd Moreno PA-C 8.6 mg at 05/26/21 220 polyethylene glycol (GLYCOLAX) packet 17 g 17 g Oral Daily Sd Moreno PA-C 17 g at 05/26/21 0951 docusate sodium (COLACE) capsule 100 mg 100 mg Oral BID Sd Moreno PA-C 100 mg at 05/26/21 220 LORazepam (ATIVAN) tablet 0.5 mg 0.5 mg Oral Nightly PRN Renny Biswas MD 0.5 mg at 05/25/21 6145 ARE THERE PERTINENT UPDATES TO PAST,FAMILY, OR SOCIAL HISTORY?: No Subjective: Pain is well controlled, agreeable to placement. Review of Systems Musculoskeletal: Positive for arthralgias and myalgias. All other systems reviewed and are negative. PHQ In the last 2 weeks have you had: 1. Little interest or pleasure in doing things No 2. Been feeling down, depressed, or hopeless No If greater then 0, place CLP consult Date PHQ completed: 05/25 Objective: Patient Vitals for the past 24 hrs: BP Temp Temp src Pulse Resp SpO2 05/27/21 0522 102/68 97.3 F (36.3 C) 68 16 93 % 05/27/21 0130 16 05/27/21 0006 104/66 96.7 F (35.9 C) Temporal 69 16 91 % 05/26/21 1945 100/73 96.8 F (36 C) Temporal 74 16 96 % 05/26/21 1443 (!) 149/71 97.8 F (36.6 C) Temporal 72 18 94 % 05/26/21 0907 115/72 97.3 F (36.3 C) Temporal 85 17 97 % Date 05/27/21 0000 - 05/27/21 2359 Shift 2268-8688 9954-1727 8732-8775 24 Hour Total INTAKE P.O. 350 350 Shift Total(mL/kg) 350(2.8) 350(2.8) OUTPUT Urine(mL/kg/hr) 750 750 Shift Total(mL/kg) 750(5.9) 750(5.9) Weight (kg) 126.1 126.1 126.1 126.1 Last BM: MANAGER ICU Diet: Reg CVP: No Chest Tubes: R: No Output: na Air Leak: na N/A L: No Output: na Air Leak: na N/A PHYSICAL: Physical Exam Vitals and nursing note reviewed. Constitutional: General: He is not in acute distress. Appearance: He is obese. He is not ill-appearing. HENT: Head: Normocephalic and atraumatic. Mouth/Throat: Mouth: Mucous membranes are moist. Eyes: Extraocular Movements: Extraocular movements intact. Pupils: Pupils are equal, round, and reactive to light. Cardiovascular: Rate and Rhythm: Normal rate. Pulses: Normal pulses. Pulmonary: Effort: Pulmonary effort is normal. Chest: Chest wall: No tenderness. Abdominal: Palpations: Abdomen is soft. Musculoskeletal: General: Tenderness and signs of injury present. Cervical back: Normal range of motion. No rigidity or tenderness. Comments: Left arm wrapped in splint and michael wrap, sling in place, MSPs intact Skin: General: Skin is warm and dry. Capillary Refill: Capillary refill takes less than 2 seconds. Neurological: Mental Status: He is alert and oriented to person, place, and time. Sutures or dora? Yes, incisional O2: RA / / / Data Review Data CBC with Differential: Lab Results Component Value Date WBC 10.4 05/25/2021 RBC 3.90 05/25/2021 HGB 11.9 05/25/2021 HCT 34.4 05/25/2021 PLT 171 05/25/2021 CMP: Lab Results Component Value Date NA 137 05/25/2021 K 4.5 05/25/2021 CL 109 05/25/2021 CO2 23 05/25/2021 BUN 15 05/25/2021 CREATININE 1.13 05/25/2021 GLUCOSE 122 05/25/2021 LABALBU 3.0 01/28/2019 CALCIUM 9.4 05/25/2021 BMP: Hepatic Function Panel:Ionized Calcium: No results found for: IONCA Magnesium: Lab Results Component Value Date MG 2.0 05/25/2021 Phosphorus: Lab Results Component Value Date PHOS 1.8 05/25/2021 PT/INR: Lab Results Component Value Date PROTIME 11.2 05/24/2021 INR 1.0 05/24/2021 PTT: No results found for: APTT[APTT Last 3 Troponin: No results found for: TROPONINI Urine Culture: No components found for: CURINE Blood Culture: No components found for: CBLOOD, CFUNGUSBL Blood Culture from Central Line: No components found for: CBLOODLN Stool Culture: No components found for: CSTOOL Sputum Culture: No components found for: CSPUTUM Sputum Culture for AFB: No components found for: CAFBSM Wound Culture: Radiology: XR HUMERUS LEFT (MIN 2 VIEWS) Result Date: 05/24/2021 [id number]iology ACCESSION EXAM DATE/TIME PROCEDURE ORDERING PROVIDER [id number] 05/24/2021 17:43 EDT CR Humerus 2+ Views Left SD [facility] CPT code 67846 Reason For Exam (CR Humerus 2+ Views Left) s/p ORIF left distal humeral shaft fx Report Left humerus CLINICAL INDICATION: Open reduction and internal fixation COMPARISON: Left elbow 05/24/2021 AP and lateral views of the left humerus were obtained. Metallic plate has been placed along the lateral aspect of the mid and distal humeral shaft and the lateral condyle fixed with multiple screws. The distal humeral shaft fracture is aligned anatomically. Skin dora are noted in the lateral soft tissues or in the shoulder and elbow joints are intact. IMPRESSION: Internal fixation of the distal humeral fracture with anatomic alignment Report Dictated on --- Final --- Dictated: 05/24/2021 5:44 pm Dictating Physician: MD ROJAS DIANE Signed Date and Time: 05/24/2021 5:46 pm Signed by: MD ROJAS DIANE Transcribed Date and Time: 05/24/2021 5:44 XR ELBOW LEFT (MIN 3 VIEWS) Result Date: 05/24/2021 [id number] Radiology ACCESSION EXAM DATE/TIME PROCEDURE ORDERING PROVIDER [id number] 05/24/2021 05:59 EDT CR Elbow 3+ Views Left MD FONTANA ALEX CPT code 52488 Reason For Exam (CR Elbow 3+ Views Left) L elbow pain Report Indication: Left elbow pain. AP, lateral and oblique views of the left elbow. Images show an oblique nondisplaced fracture of the distal diaphysis of the humerus. Elbow joint space is narrowed. Proximal aspect of the radius and ulna appear intact. No joint effusion. IMPRESSION: Displaced fracture of the distal humerus. Report Dictated on --- Final --- Dictated: 05/24/2021 8:44 am Dictating Physician: MD HOPKINS LAURA Signed Date and Time: 05/24/2021 8:47 am Signed by: MD HOPKINS LAURA Transcribed Date and Time: 05/24/2021 8:44 XR Chest 1 VW Result Date: 05/24/2021 [id number] Diagnostic Radiology ACCESSION EXAM DATE/TIME PROCEDURE ORDERING PROVIDER [id number] 05/24/2021 05:59 EDT CR Chest 1 View Frontal MD FONTANA ALEX CPT code 81612 Reason For Exam (CR Chest 1 View Frontal) preop Report INDICATION:Preop PORTABLE CHEST: COMPARISON: 03/19/2004 Distortion and prominence of bronchovascular markings is similar to the prior examination and may be chronic. No romy edema. No gross pleural effusions. No focal areas of consolidation. Heart size is mildly enlarged and stable. Midline sternotomy wires are present. Bipolar pacemaker leads appear in satisfactory position. IMPRESSION: Prominent bronchovascular markings, likely chronic. Mild venous congestion is a possibility. No romy edema or focal areas of consolidation. Report Dictated on --- Final --- Dictated: 05/24/2021 8:47 am Dictating Physician: MD HOPKINS LAURA Signed Date and Time: 05/24/2021 8:49 am Signed by: MD HOPKINS LAURA Transcribed Date and Time: 05/24/2021 8:47 Patient Active Problem List Diagnosis Primary osteoarthritis of left hip S/P AKA (above knee amputation), right (HCC) MRSA (methicillin resistant Staphylococcus aureus) infection Closed fracture of lower epiphysis of humerus Left supracondylar humerus fracture, closed, initial encounter Ischemic cardiomyopathy Acute traumatic pain ASSESSMENT: 66 year old male s/p fall from standing with left humerus fracture PLAN: Neuro/Spine: - Pain control with scheduled Tylenol, prn oxy - Neurovascular checks - Home wellbutrin, lexapro - Nightly ativan- sub for home restoril HEENT: - No issues Cardiovascular: - Cardiac history-cards consult for surgical clearance obtained and signed off - Restart Lasix and Plavix - HDS - Home coreg, imdur, ramipril and ranexa Pulmonary: - IS, C&DB - CPAP nightly FEN/GI: - Reg diet - Bowel regimen - Zofran PRN : - CrCl: 87 - DC daily labs Heme: - Hgb: 11.9 from 12.8 - DC daily labs ID: - Ancef per ortho, last dose 05/25 at 0700 Endo: - No issues Lines/Devices: - PIV Prophylaxis: DVT: Lovenox Has DVT PPX been started? Yes If no, why? na GI: None Pressure Ulcer: None Musculoskeletal: - Left humerus fracture-s/p ORIF 05/24, NWB, remove dressing POD#2 - PT/OT rec IP rehab WB Status: RUE:AT LUE: NWB RLE: AT LLE: AT Disposition: PT rec IP rehab, patient agreeable, dispo planning Associated attestation - Mary Anne Hardy MD - 05/27/2021 11:33 AM EDT ~~~~~~~~~~~~~~~~~~~~~~~~~~~~~~~~~ ~~~~~~~~~~~~~~~~~~~~~~~~~~~~ ATTENDING ADDENDUM CC: left arm pain Active Diagnoses/Problems this Admission: Hospital Problems Last Modified POA Closed fracture of lower epiphysis of humerus 05/24/2021 Yes Left supracondylar humerus fracture, closed, initial encounter 05/24/2021 Yes Ischemic cardiomyopathy 05/25/2021 Yes Acute traumatic pain 05/25/2021 Yes I personally supervised the COMPUTER CUSTOMER SUPPORT SPECIALIST/ROMEL in the evaluation and development of a treatment plan for this patient on the same day of service as above. I personally discussed the review of systems and interviewed the patient along with performing a physical examination. I reviewed the recent events, imaging, labs, vital signs. In addition, I discussed the patient's condition and treatment options with him/her when possible. I have also reviewed and agree with the past medical, family, and social history unless otherwise noted. All of the patient's questions were answered and family updated when appropriate and possible. 66M s/p mech fall with left humerus fx pmhx of TARAN on CPAP, CAD, GERD, HTN Patient has right AKA Multimodal pain control Restart home medications - start Plavix and Lasix 40 BID Appreciate orthopedic recommendations - Sling as needed, remove dressing postoperative day 2 - Ice and elevate - Follow-up in 2 weeks - abx 24 hours --> finished - NWB PTOT - IP rehab Appreciate cards recs - avoid excess fluids, restart home medications, follow outpatient No record of ECHO, per patient 40%. Unable to characterize HF without echo report and full history CPAP at night Placement pending Mary Anne Hardy MD Division of Trauma Department of Surgery [facility] Pager: [phone] ~~~~~~~~~~~~~~~~~~~~~~~~~~~~~~~~~ ~~~~~~~~~~~~~~~~~~~~~~~~~~~~ This note may have been dictated using [employer] Practice Edition 2.6 and/or [employer] Voice Recognition Feature. The document was proofread; however, unrecognized voice recognition rn otolaryngology errors may be present. Physical Therapy Facility/Department: [facility] Daily Treatment Note NAME: Albin Issa : 1955 Date of Service: 05/26/2021 Discharge Recommendations: IP Rehab PT Equipment Recommendations Other: TBD at next level of care Assessment Body structures, Functions, Activity limitations: Decreased functional mobility ;Decreased ADL status;Decreased endurance;Decreased strength;Decreased balance Assessment: Pt requires mod assist for mobility. Pt is unsteady and at at high risk for fall. Pt continues to state that the doctor told him that he is able to use platform walker. Ortho clarified and pt remains NWB LUE and is not allowed to use platform walker. Pt is not currently safe to go home at this time. Recommend facility based therapy, if pt refuses then he will need 24 hr assist at home. Safest option if he goes home is to pivot to wheelchair. Discussed this with PT. Treatment Diagnosis: Fall with closed fracture of lower epiphysis of humerus s/p ORIF on 05/24 Specific instructions for Next Treatment: Gait training using hemiwalker REQUIRES PT FOLLOW UP: Yes Activity Tolerance Activity Tolerance: Patient limited by fatigue;Patient limited by endurance Activity Tolerance: Limited by NWB status of LUE Patient Diagnosis(es): There were no encounter diagnoses. has a past medical history of Arthritis, CAD (coronary artery disease), Cancer (HCC), Cardiac defibrillator in place, Cellulitis, Chronic acquired lymphedema, GERD (gastroesophageal reflux disease), High cholesterol, History of blood transfusion, History of kidney stones, Hypertension, TARAN on CPAP, Pacemaker, Radiation, Restless leg syndrome, Rotator cuff injury, and Wound, open with complication. has a past surgical history that includes Pacemaker insertion (2008); joint replacement (Left, 09/2009); Percutaneous Transluminal Coronary Angio (2004); Leg Surgery (Right, 1998); Soft Tissue Tumor Resection (Right, 06/1997); Soft Tissue Biopsy (Right, 05/1997); shoulder surgery (Left); Cardiac defibrillator placement (2010); Cardiac surgery (2004); shoulder surgery (Right, ); above knee amputation (Right, 01/26/2019); Leg Surgery (Right, 01/28/2019); Colonoscopy; other surgical history (Right, 03/05/2019); pacemaker placement; Intracapsular cataract extraction; other surgical history (05/07/2019); and orif humerus decompression (Left, 05/24/2021). Restrictions Restrictions/Precautions Restrictions/Precautions: Weight Bearing, Fall Risk, Up as Tolerated Required Braces or Orthoses?: Yes (RLE prosthesis, LUE sling) Lower Extremity Weight Bearing Restrictions Right Lower Extremity Weight Bearing: Weight Bearing As Tolerated Left Lower Extremity Weight Bearing: Weight Bearing As Tolerated Upper Extremity Weight Bearing Restrictions Right Upper Extremity Weight Bearing: Weight Bearing As Tolerated Left Upper Extremity Weight Bearing: Non Weight Bearing Required Braces or Orthoses Left Upper Extremity Brace/Splint: Sling Position Activity Restriction Other position/activity restrictions: RLE prosthesis. Per ortho note, full ROM shoulder --> fingers Subjective General Chart Reviewed: Yes Additional Pertinent Hx: Previous R AKA, pacemaker Family / Caregiver Present: No Subjective Subjective: Pt sitting up in the chair, agrees to PT General Comment Comments: Order clarified for NWB LUE- per ortho, pt is NWB LUE and is not allowed to use platform walker Pain Screening Patient Currently in Pain: Yes Pain Assessment Pain Assessment: 0-10 Pain Level: 5 Pain Type: Acute pain;Surgical pain Pain Location: Arm Pain Orientation: Left Vital Signs Patient Currently in Pain: Yes Orientation Orientation Overall Orientation Status: Within Normal Limits Cognition Cognition Overall Cognitive Status: WFL Cognition Comment: Pt. continues to insists that MD cleared him to use his UPwalker despite being NWB LUE, but ortho just clarified that pt is NWB LUE and is not allowed to use platform Objective Bed mobility Rolling to Right: Maximum assistance Sit to Supine: Moderate assistance Scooting: Moderate assistance Transfers Sit to Stand: Moderate Assistance Stand to sit: Moderate Assistance Bed to Chair: Moderate assistance (chair to bed with use of pyramid cane, NWB LUE in sling and with RLE prosthesis on) Ambulation Ambulation?: No Stairs/Curb Stairs?: No Balance Comments: Patient required min A to stand statically at hemiwalker with RUE support only. pt removed prosthesis while sitting at EOB before returning to supine in bed G-Code AM-PAC Score AM-PAC Inpatient Mobility Raw Score : 10 (05/26/211331) AM-PAC Inpatient T-Scale Score : 32.29 (05/26/211331) Mobility Inpatient CMS 0-100% Score: 76.75 (05/26/21 133) Mobility Inpatient CMS G-Code Modifier : CL (05/26/211331) Goals Short term goals Time Frame for Short term goals: 2 weeks Short term goal 1: Perform bed mobility with SBA- NOT MET Short term goal 2: Perform transfers with min A- NOT MET Short term goal 3: Ambulate 30 feet using hemiwalker with min A- NOT MET Patient Goals Patient goals : To go home Plan Plan Times per week: 7 Times per day: Daily Plan weeks: 2 Specific instructions for Next Treatment: Gait training using hemiwalker Current Treatment Recommendations: Strengthening, Transfer Training, Endurance Training, ROM, Patient/Caregiver Education & Training, Balance Training, Gait Training, Functional Mobility Training, Safety Education & Training Safety Devices Type of devices: Patient at risk for falls, Call light within reach, Gait belt, Nurse notified, All fall risk precautions in place, Left in bed Restraints Initially in place: No Therapy Time Individual Concurrent Group Co-treatment Time In 1205 Time Out 1230 Minutes 25 Timed Code Treatment Minutes: (2FA) *PPE per facility policy used during session* Arabella Dai PTA Spoke to patient regarding the post operative plan. Discharge instructions and follow up were explained. We discussed the natural course of injury and expectations moving forward. Patient voiced their understanding and is agreeable with the current plan. All questions were answered. Patient was advised to contact our office with any questions or concerns. Sd Moreno PA-C Orthopedic Surgery Occupational Therapy Facility/Department: [facility] Daily Treatment Note NAME: Albin Issa : 1955 Date of Service: 05/26/2021 Discharge Recommendations: IP Rehab Assessment Assessment: Pt. insisting that he is going home and said his daughter will be there to help. Pt. would be an excellent candidate for IP Rehab. He is able to tolerate 3 hours of therapy a day. If discharged home pt. would need 24 hour assist and Home health therapies. OT Education: OT Role;Plan of Care;Precautions;Transfer Training REQUIRES OT FOLLOW UP: Yes Activity Tolerance Activity Tolerance: Patient Tolerated treatment well Safety Devices Safety Devices in place: Yes Type of devices: All fall risk precautions in place;Left in chair;Call light within reach;Nurse notified;Gait belt Patient Diagnosis(es): There were no encounter diagnoses. has a past medical history of Arthritis, CAD (coronary artery disease), Cancer (HCC), Cardiac defibrillator in place, Cellulitis, Chronic acquired lymphedema, GERD (gastroesophageal reflux disease), High cholesterol, History of blood transfusion, History of kidney stones, Hypertension, TARAN on CPAP, Pacemaker, Radiation, Restless leg syndrome, Rotator cuff injury, and Wound, open with complication. has a past surgical history that includes Pacemaker insertion (2008); joint replacement (Left, 09/2009); Percutaneous Transluminal Coronary Angio (2004); Leg Surgery (Right, 1998); Soft Tissue Tumor Resection (Right, 06/1997); Soft Tissue Biopsy (Right, 05/1997); shoulder surgery (Left); Cardiac defibrillator placement (2010); Cardiac surgery (2004); shoulder surgery (Right, ); above knee amputation (Right, 01/26/2019); Leg Surgery (Right, 01/28/2019); Colonoscopy; other surgical history (Right, 03/05/2019); pacemaker placement; Intracapsular cataract extraction; other surgical history (05/07/2019); and orif humerus decompression (Left, 05/24/2021). Restrictions Restrictions/Precautions Restrictions/Precautions: Weight Bearing, Fall Risk, Up as Tolerated Required Braces or Orthoses?: Yes (R LE prosthesis) Lower Extremity Weight Bearing Restrictions Right Lower Extremity Weight Bearing: Weight Bearing As Tolerated Left Lower Extremity Weight Bearing: Weight Bearing As Tolerated Upper Extremity Weight Bearing Restrictions Right Upper Extremity Weight Bearing: Weight Bearing As Tolerated Left Upper Extremity Weight Bearing: Non Weight Bearing Required Braces or Orthoses Left Upper Extremity Brace/Splint: Sling Position Activity Restriction Other position/activity restrictions: RLE prosthesis. Per ortho note, full ROM shoulder --> fingers Subjective General Chart Reviewed: Yes Patient assessed for rehabilitation services?: Yes Additional Pertinent Hx: R AKA Response to previous treatment: Patient with no complaints from previous session Family / Caregiver Present: No Diagnosis: Left supracondylar humerus fracture, closed. s/p ORIF L distal humeral shaft 05/24 Subjective Subjective: Pt lying in bed upon entry. Pt L hand dominant. Agreeable to OT services. Pain Assessment Pain Level: 5 Pain Type: Surgical pain Pain Location: Arm Pain Orientation: Left Pain Descriptors: Aching Pain Frequency: Continuous Pre Treatment Pain Screening Intervention List: Patient able to continue with treatment;Nurse/Physician notified;Nurse called to administer meds Vital Signs Patient Currently in Pain: Yes Orientation Orientation Overall Orientation Status: Within Normal Limits Objective ADL Grooming: Setup;Increased time to complete;Supervision (oral care) UE Bathing: Moderate assistance;Setup;Increased time to complete LE Bathing: Setup;Increased time to complete;Maximum assistance UE Dressing: Dependent/Total (don hospital gown) LE Dressing: Maximum assistance (L shoe/saddle) Additional Comments: Min assist to don R prosthesis Balance Sitting Balance: Stand by assistance Standing Balance: Moderate assistance Standing Balance Time: pt. stood 3-4 min with OT and min-mod assist. Pt. declined to use hemiwalker. Bed mobility Rolling to Right: Maximum assistance Supine to Sit: Maximum assistance Scooting: Maximal assistance Transfers Stand Step Transfers: Maximum assistance Sit to stand: Moderate assistance (with bed elevated) Stand to sit: Moderate assistance Cognition Overall Cognitive Status: WFL Cognition Comment: Pt. continues to insists that MD cleared him to use his UPwalker despite being NWB LUE Plan Plan Times per week: 5 Plan weeks: 4 Current Treatment Recommendations: Strengthening, Gait Training, Patient/Caregiver Education & Training, Equipment Evaluation, Education, & procurement, ROM, Balance Training, Functional Mobility Training, Endurance Training, Safety Education & Training, Self-Care / ADL, Pain Management, Stair training Plan Comment: continue OT POC Goals Short term goals Time Frame for Short term goals: 4 weeks Short term goal 1: LB dress with set up, supervision and assistive equipment-progressing Short term goal 2: toilet transfer with modif indep-progressing Short term goal 3: complete toileting with modif indep-progressing Short term goal 4: complete sink level grooming with supervision and set up.-progressing Patient Goals Patient goals : return home Therapy Time Individual Concurrent Group Co-treatment Time In 804 Time Out 0852 Minutes 47 Timed Code Treatment Minutes: 47 Minutes (ther act-1, selfcare-2) [place] Images from the original note were not included. Daily Trauma Progress Note Nurse Practitioner 05/26/2021 6:57 AM Admit Date: 05/23/2021 Post Trauma Day 3 Fall SH HISTORY OF TRAUMATIC EVENT: 66 y.o. male status post fall from standing. The incident happened around afternoon on 05/23/21 at home. When the event happened the patient was bending down to pickle solution maker a delivery box when his Rolator got away from him. He ended up riding the Rolator down the step ramp off his front porch and nose dived over the handlebars. He did not hit his head, his nose brushed the ground . INJURIES: Left humerus fracture PROCEDURES: ORIF Left humerus shaft fracture INCIDENTAL FINDINGS: None CHIEF COMPLAINT: would like to go home PREVIOUS 24 HOUR EVENTS: PT rec IP rehab Consults: IP CONSULT TO ORTHOPEDIC SURGERY IP CONSULT TO RESPIRATORY CARE IP CONSULT TO CARDIOLOGY MEDICATIONS: Current Facility-Administered Medications Medication Dose Route Frequency Provider Last Rate Last Admin enoxaparin (LOVENOX) injection 30 mg 30 mg Subcutaneous BID MARISELA Croft FELT FINISHING SUPERVISOR 30 mg at 05/25/212058 atorvastatin (LIPITOR) tablet 40 mg 40 mg Oral Nightly Sdosamn Moreno, PA-C 40 mg at 05/25/212099 buPROPion (WELLBUTRIN SR) extended release tablet 150 mg 150 mg Oral BID Sd Josh, PA-C 150 mg at 05/25/212112 carvedilol (COREG) tablet 3.125 mg 3.125 mg Oral BID WC Sd Moreno, PA-C 3.125 mg at 05/25/21 174 clopidogrel (PLAVIX) tablet 75 mg 75 mg Oral Daily Sdosman Moreno, PA-C 75 mg at 05/25/21906 escitalopram (LEXAPRO) tablet 20 mg 20 mg Oral Daily Sd Moreno, PA-C 20 mg at 05/25/21754 furosemide (LASIX) tablet 80 mg 80 mg Oral Nightly Sdosman Moreno, PA-C 80 mg at 05/25/212099 gabapentin (NEURONTIN) capsule 300 mg 300 mg Oral Nightly Sdosman Moreno, PA-C 300 mg at 05/25/212099 isosorbide mononitrate (IMDUR) extended release tablet 60 mg 60 mg Oral BID Sd Moreno, PA-C 60 mg at 05/25/212099 cetirizine (ZYRTEC) tablet 10 mg 10 mg Oral Daily Sd Moreno, PA-C 10 mg at 05/25/21754 [Held by provider] meloxicam (MOBIC) tablet 15 mg 15 mg Oral Daily Sd Moreno, PA-C niacin (NIASPAN) extended release tablet 1,000 mg 1,000 mg Oral Nightly Sd Josh, PA-C 1,000 mg at 05/25/212100 potassium chloride (KLOR-CON M) extended release tablet 40 mEq 40 mEq Oral Daily Sd Moreno, PA-C 40 mEq at 05/25/21753 ramipril (ALTACE) capsule 2.5 mg 2.5 mg Oral Daily Sd Josh, PA-C 2.5 mg at 05/25/21906 ranolazine (RANEXA) extended release tablet 1,000 mg 1,000 mg Oral BID Sd Josh, PA-C 1,000 mg at 05/25/212099 sodium chloride flush 0.9 % injection 5-40 mL 5-40 mL Intravenous 2 times per day JANICE Del CidC 10 mL at 05/25/212113 sodium chloride flush 0.9 % injection 5-40 mL 5-40 mL Intravenous PRN Sd Moreno PA-C 0.9 % sodium chloride infusion 25 mL Intravenous PRN Sd Moreno PA-C acetaminophen (TYLENOL) tablet 1,000 mg 1,000 mg Oral 3 times per day JANICE Del CidC 1,000 mg at 05/26/21 0504 oxyCODONE (ROXICODONE) immediate release tablet 5 mg 5 mg Oral Q4H PRN Sd Moreno PA-C Or oxyCODONE (ROXICODONE) immediate release tablet 10 mg 10 mg Oral Q4H PRN Sd Moreno PA-C 10 mg at 05/25/212058 ondansetron (ZOFRAN) injection 4 mg 4 mg Intravenous Q6H PRN Sd Moreno PA-C aspirin EC tablet 81 mg 81 mg Oral Daily JANICE Del CidC 81 mg at 05/25/21 0755 senna (SENOKOT) tablet 8.6 mg 1 tablet Oral Nightly Sd Moreno PA-C 8.6 mg at 05/25/21 2100 polyethylene glycol (GLYCOLAX) packet 17 g 17 g Oral Daily JANICE Del CidC 17 g at 05/25/21 0754 docusate sodium (COLACE) capsule 100 mg 100 mg Oral BID Sd Moreno PA-C 100 mg at 05/25/21 0754 LORazepam (ATIVAN) tablet 0.5 mg 0.5 mg Oral Nightly PRN Renny Biswas MD 0.5 mg at 05/25/21 231 ARE THERE PERTINENT UPDATES TO PAST,FAMILY, OR SOCIAL HISTORY?: No Subjective: Pain is well controlled, block has work off. Would prefer to go home despite PT recommendations of rehab. Review of Systems Constitutional: Positive for activity change. Negative for chills and fever. HENT: Negative for facial swelling, hearing loss and sinus pain. Eyes: Negative for photophobia and visual disturbance. Respiratory: Negative for chest tightness, shortness of breath and wheezing. Cardiovascular: Negative for chest pain and palpitations. Gastrointestinal: Positive for vomiting. Negative for abdominal distention, abdominal pain, constipation and nausea. Genitourinary: Negative for difficulty urinating and hematuria. Musculoskeletal: Positive for myalgias. Negative for arthralgias. Neurological: Negative for dizziness, seizures and weakness. Hematological: Does not bruise/bleed easily. Psychiatric/Behavioral: Negative for agitation and hallucinations. The patient is not nervous/anxious. All other systems reviewed and are negative. PHQ In the last 2 weeks have you had: 1. Little interest or pleasure in doing things No 2. Been feeling down, depressed, or hopeless No If greater then 0, place CLP consult Date PHQ completed: 05/25 Objective: Patient Vitals for the past 24 hrs: BP Temp Temp src Pulse Resp SpO2 05/26/21 0552 126/80 99.8 F (37.7 C) Temporal 70 16 99 % 05/26/21 0118 (!) 107/57 97.4 F (36.3 C) Temporal 65 16 93 % 05/25/21 2131 105/65 97.7 F (36.5 C) Temporal 69 18 96 % 05/25/21 2040 18 05/25/21 1658 (!) 124/98 98 F (36.7 C) Temporal 76 18 93 % 05/25/21 1250 104/66 97.4 F (36.3 C) Temporal 83 18 94 % 05/25/21 0953 (!) 120/59 Temporal 86 05/25/21 0951 (!) 98/59 98.9 F (37.2 C) Temporal 86 18 92 % Date 05/26/21 0000 - 05/26/21 2359 Shift 2215-7081 3386-9239 3232-4724 24 Hour Total INTAKE Shift Total(mL/kg) OUTPUT Urine(mL/kg/hr) 800 800 Shift Total(mL/kg) 800(6.3) 800(6.3) Weight (kg) 126.1 126.1 126.1 126.1 Last BM: MANAGER ICU Diet: Reg CVP: No Chest Tubes: R: No Output: na Air Leak: na N/A L: No Output: na Air Leak: na N/A PHYSICAL: Physical Exam Vitals and nursing note reviewed. Constitutional: General: He is not in acute distress. Appearance: He is obese. He is not ill-appearing. HENT: Head: Normocephalic and atraumatic. Mouth/Throat: Mouth: Mucous membranes are moist. Eyes: Extraocular Movements: Extraocular movements intact. Pupils: Pupils are equal, round, and reactive to light. Cardiovascular: Rate and Rhythm: Normal rate. Pulses: Normal pulses. Pulmonary: Effort: Pulmonary effort is normal. Chest: Chest wall: No tenderness. Abdominal: Palpations: Abdomen is soft. Musculoskeletal: General: Tenderness and signs of injury present. Cervical back: Normal range of motion. No rigidity or tenderness. Comments: Left arm wrapped in splint and michael wrap, sling in place, MSPs intact Skin: General: Skin is warm and dry. Capillary Refill: Capillary refill takes less than 2 seconds. Neurological: Mental Status: He is alert and oriented to person, place, and time. Sutures or dora? Yes, incisional O2: RA / / / Data Review Data CBC with Differential: Lab Results Component Value Date WBC 10.4 05/25/2021 RBC 3.90 05/25/2021 HGB 11.9 05/25/2021 HCT 34.4 05/25/2021 PLT 171 05/25/2021 CMP: Lab Results Component Value Date NA 137 05/25/2021 K 4.5 05/25/2021 CL 109 05/25/2021 CO2 23 05/25/2021 BUN 15 05/25/2021 CREATININE 1.13 05/25/2021 GLUCOSE 122 05/25/2021 LABALBU 3.0 01/28/2019 CALCIUM 9.4 05/25/2021 BMP: Hepatic Function Panel:Ionized Calcium: No results found for: IONCA Magnesium: Lab Results Component Value Date MG 2.0 05/25/2021 Phosphorus: Lab Results Component Value Date PHOS 1.8 05/25/2021 PT/INR: Lab Results Component Value Date PROTIME 11.2 05/24/2021 INR 1.0 05/24/2021 PTT: No results found for: APTT[APTT Last 3 Troponin: No results found for: TROPONINI Urine Culture: No components found for: CURINE Blood Culture: No components found for: CBLOOD, CFUNGUSBL Blood Culture from Central Line: No components found for: CBLOODLN Stool Culture: No components found for: CSTOOL Sputum Culture: No components found for: CSPUTUM Sputum Culture for AFB: No components found for: CAFBSM Wound Culture: Radiology: XR HUMERUS LEFT (MIN 2 VIEWS) Result Date: 05/24/2021 [id number] ACCESSION EXAM DATE/TIME PROCEDURE ORDERING PROVIDER [id number] 05/24/2021 17:43 EDT CR Humerus 2+ Views Left [id number] FedeSD MORENO CPT code 91183 Reason For Exam (CR Humerus 2+ Views Left) s/p ORIF left distal humeral shaft fx Report Left humerus CLINICAL INDICATION: Open reduction and internal fixation COMPARISON: Left elbow 05/24/2021 AP and lateral views of the left humerus were obtained. Metallic plate has been placed along the lateral aspect of the mid and distal humeral shaft and the lateral condyle fixed with multiple screws. The distal humeral shaft fracture is aligned anatomically. Skin dora are noted in the lateral soft tissues or in the shoulder and elbow joints are intact. IMPRESSION: Internal fixation of the distal humeral fracture with anatomic alignment Report Dictated on --- Final --- Dictated: 05/24/2021 5:44 pm Dictating Physician: MD ROJAS DIANE Signed Date and Time: 05/24/2021 5:46 pm Signed by: MD ROJAS DIANE Transcribed Date and Time: 05/24/2021 5:44 XR ELBOW LEFT (MIN 3 VIEWS) Result Date: 05/24/2021 [id number] Radiology ACCESSION EXAM DATE/TIME PROCEDURE ORDERING PROVIDER [id number] 05/24/2021 05:59 EDT CR Elbow 3+ Views Left MD FONTANA ALEX CPT code 53186 Reason For Exam (CR Elbow 3+ Views Left) L elbow pain Report Indication: Left elbow pain. AP, lateral and oblique views of the left elbow. Images show an oblique nondisplaced fracture of the distal diaphysis of the humerus. Elbow joint space is narrowed. Proximal aspect of the radius and ulna appear intact. No joint effusion. IMPRESSION: Displaced fracture of the distal humerus. Report Dictated on --- Final --- Dictated: 05/24/2021 8:44 am Dictating Physician: MD HOPKINS LAURA Signed Date and Time: 05/24/2021 8:47 am Signed by: MD HOPKINS LAURA Transcribed Date and Time: 05/24/2021 8:44 XR Chest 1 VW Result Date: 05/24/2021 [id number] Diagnostic Radiology ACCESSION EXAM DATE/TIME PROCEDURE ORDERING PROVIDER [id number] 05/24/2021 05:59 EDT CR Chest 1 View Frontal MD FONTANA ALEX CPT code 75671 Reason For Exam (CR Chest 1 View Frontal) preop Report INDICATION:Preop PORTABLE CHEST: COMPARISON: 03/19/2004 Distortion and prominence of bronchovascular markings is similar to the prior examination and may be chronic. No romy edema. No gross pleural effusions. No focal areas of consolidation. Heart size is mildly enlarged and stable. Midline sternotomy wires are present. Bipolar pacemaker leads appear in satisfactory position. IMPRESSION: Prominent bronchovascular markings, likely chronic. Mild venous congestion is a possibility. No romy edema or focal areas of consolidation. Report Dictated on --- Final --- Dictated: 05/24/2021 8:47 am Dictating Physician: MD HOPKINS LAURA Signed Date and Time: 05/24/2021 8:49 am Signed by: MD HOPKINS LAURA Transcribed Date and Time: 05/24/2021 8:47 Patient Active Problem List Diagnosis Primary osteoarthritis of left hip S/P AKA (above knee amputation), right (HCC) MRSA (methicillin resistant Staphylococcus aureus) infection Closed fracture of lower epiphysis of humerus Left supracondylar humerus fracture, closed, initial encounter Ischemic cardiomyopathy Acute traumatic pain ASSESSMENT: 66 year old male s/p fall from standing with left humerus fracture PLAN: Neuro/Spine: - Pain control with scheduled Tylenol, prn oxy - Neurovascular checks - Home wellbutrin, lexapro - Nightly ativan- sub for home restoril HEENT: - No issues Cardiovascular: - Cardiac history-cards consult for surgical clearance obtained and signed off - Restart Lasix and Plavix - HDS - Home coreg, imdur, ramipril and ranexa Pulmonary: - IS, C&DB - CPAP nightly FEN/GI: - Reg diet - Bowel regimen - Zofran PRN : - CrCl: 87 - DC daily labs Heme: - Hgb: 11.9 from 12.8 - DC daily labs ID: - Ancef per ortho, last dose 05/25 at 0700 Endo: - No issues Lines/Devices: - PIV Prophylaxis: DVT: Lovenox Has DVT PPX been started? Yes If no, why? na GI: None Pressure Ulcer: None Musculoskeletal: - Left humerus fracture-s/p ORIF 05/24, NWB, remove dressing POD#2 - PT/OT rec IP rehab WB Status: RUE:AT LUE: NWB RLE: AT LLE: AT Disposition: PT rec IP rehab, patient prefers to go home, dispo planning Associated attestation - Mary Anne Hardy MD - 05/26/2021 12:59 PM EDT ~~~~~~~~~~~~~~~~~~~~~~~~~~~~~~~~~ ~~~~~~~~~~~~~~~~~~~~~~~~~~~~ ATTENDING ADDENDUM CC: left arm pain Active Diagnoses/Problems this Admission: Hospital Problems Last Modified POA Closed fracture of lower epiphysis of humerus 05/24/2021 Yes Left supracondylar humerus fracture, closed, initial encounter 05/24/2021 Yes Ischemic cardiomyopathy 05/25/2021 Yes Acute traumatic pain 05/25/2021 Yes I personally supervised the COMPUTER CUSTOMER SUPPORT SPECIALIST/ROMEL in the evaluation and development of a treatment plan for this patient on the same day of service as above. I personally discussed the review of systems and interviewed the patient along with performing a physical examination. I reviewed the recent events, imaging, labs, vital signs. In addition, I discussed the patient's condition and treatment options with him/her when possible. I have also reviewed and agree with the past medical, family, and social history unless otherwise noted. All of the patient's questions were answered and family updated when appropriate and possible. 66M s/p mech fall with left humerus fx pmhx of TARAN on CPAP, CAD, GERD, HTN Patient has right AKA Multimodal pain control Restart home medications - start Plavix and Lasix 40 BID Appreciate orthopedic recommendations - Sling as needed, remove dressing postoperative day 2 - Ice and elevate - Follow-up in 2 weeks - abx 24 hours --> finished - NWB PTOT - IP rehab Appreciate cards recs - avoid excess fluids, restart home medications, follow outpatient Discuss CPAP settings with patient Placement pending Mary Anne Hardy MD Division of Trauma Department of Surgery [facility] Pager: [phone] ~~~~~~~~~~~~~~~~~~~~~~~~~~~~~~~~~ ~~~~~~~~~~~~~~~~~~~~~~~~~~~~ This note may have been dictated using [employer] Edition 2.6 and/or [employer] Voice Recognition Feature. The document was proofread; however, unrecognized voice recognition rn otolaryngology errors may be present. Images from the original note were not included. [facility] [facility] [address] [place] [address] Dept: [phone] Loc: [phone] Orthopedic Progress Note Name: Albin Issa Date:05/26/2021 Attending:Roni Figueroa MD Subjective Pain controlled. No issues overnight. Had questions about being able to use platform walker. Denies any new numbness and tingling. Reports that the block is wearing off. Objective Vitals: Vitals: 05/25/21 2040 05/25/21 2131 05/26/21 0118 05/26/21 0552 BP: 105/65 (!) 107/57 126/80 Pulse: 69 65 70 Resp: 18 18 16 16 Temp: 97.7 F (36.5 C) 97.4 F (36.3 C) 99.8 F (37.7 C) TempSrc: Temporal Temporal Temporal SpO2: 96% 93% 99% Weight: Height: Physical Exam: General: NAD LUE Sling in place Dressing: Clean/Dry/Intact SILT: Radial/Ulnar/Median distributions, some tingling in radial nerve distribution Motor: +AIN/PIN/Hand Intrinsic/Wrist Extension Pulses: Palpable Radial LABS: Recent Labs 05/24/21 0357 05/25/21 0005 WBC 7.6 10.4 HGB 12.8* 11.9* HCT 37.4* 34.4* PLT 169 171 Recent Labs 05/24/21 0357 05/25/21 0005 NA 137 137 K 4.0 4.5 CL 109* 109* CO2 BUN 15 15 CREATININE 1.02 1.13 CALCIUM 9.3 9.4 PHOS 2.9 1.8* Recent Labs 05/24/21356 INR 1.0 No results for input(s): SEDRATE, CRP in the last 72 hours. No results for input(s): HCG in the last 72 hours. Assessment Albin is a 66 y.o.male s/p ORIF L humerus on 05/24 Plan -NWB LUE -Ancef x2 doses -PT/OT -Sling prn -Dressing: Okay to remove dressing POD#2, if dry leave open to air, if saturated replace PRN -Ice/elevate -Neurovascular/skin checks q4hrs -DVT, medical, and pain management per 1 -F/u with Dr. Biswas in 2 weeks -d/c instructions in chart -Ok for dc from ortho standpoint once passes PT and abx finished -Ortho to sign off Frank Leo MD PGY-4 05/26/21 6:37 AM EDT Occupational Therapy Occupational Therapy Initial Assessment Date: 05/25/2021 Patient Name: Albin Issa : 1955 Date of Service: 05/25/2021 OT wearing surgical mask and eye protection throughout entire session Discharge Recommendations: IP Rehab Assessment Performance deficits / Impairments: Decreased functional mobility ;Decreased endurance;Decreased ADL status;Decreased sensation;Decreased ROM;Decreased balance;Decreased strength;Decreased high-level IADLs Assessment: Deficits listed above. Pt mod assist to don prosthesis and L shoe, would be max assist for general LB dressing and mod assist for most ADLs. Pt requires mod assist x2 for bed mobility, transfers and ambulation. Pt requires additional verbal cues to maintain NWB precautions on LUE during activity. Pt persistent on using UPwalker at home despite therapists' concerns about maintain NWB. Pt lives alone and is not safe to return home even with prn assist from daughter. Pt is extremely motivated to engage in therapy and can tolerate up to 3 hours of skilled therapy. Would recommend inpatient rehab Prognosis: Good Decision Making: Medium Complexity Exam: AM-PAC OT Education: OT Role;Plan of Care;Precautions;Transfer Training REQUIRES OT FOLLOW UP: Yes Activity Tolerance Activity Tolerance: Patient Tolerated treatment well;Patient limited by fatigue Safety Devices Safety Devices in place: Yes Type of devices: All fall risk precautions in place;Left in chair;Call light within reach;Nurse notified;Gait belt Restraints Initially in place: No Patient Diagnosis(es): There were no encounter diagnoses. has a past medical history of Arthritis, CAD (coronary artery disease), Cancer (HCC), Cardiac defibrillator in place, Cellulitis, Chronic acquired lymphedema, GERD (gastroesophageal reflux disease), High cholesterol, History of blood transfusion, History of kidney stones, Hypertension, TARAN on CPAP, Pacemaker, Radiation, Restless leg syndrome, Rotator cuff injury, and Wound, open with complication. has a past surgical history that includes Pacemaker insertion (2008); joint replacement (Left, 09/2009); Percutaneous Transluminal Coronary Angio (2004); Leg Surgery (Right, 1998); Soft Tissue Tumor Resection (Right, 06/1997); Soft Tissue Biopsy (Right, 05/1997); shoulder surgery (Left); Cardiac defibrillator placement (2010); Cardiac surgery (2004); shoulder surgery (Right, ); above knee amputation (Right, 01/26/2019); Leg Surgery (Right, 01/28/2019); Colonoscopy; other surgical history (Right, 03/05/2019); pacemaker placement; Intracapsular cataract extraction; other surgical history (05/07/2019); and orif humerus decompression (Left, 05/24/2021). Restrictions Restrictions/Precautions Restrictions/Precautions: Weight Bearing, Fall Risk, Up as Tolerated Required Braces or Orthoses?: Yes Lower Extremity Weight Bearing Restrictions Right Lower Extremity Weight Bearing: Weight Bearing As Tolerated Left Lower Extremity Weight Bearing: Weight Bearing As Tolerated Upper Extremity Weight Bearing Restrictions Right Upper Extremity Weight Bearing: Weight Bearing As Tolerated Left Upper Extremity Weight Bearing: Non Weight Bearing Required Braces or Orthoses Left Upper Extremity Brace/Splint: Sling (PRN for comfort only) Position Activity Restriction Other position/activity restrictions: RLE prosthesis. Per ortho note, full ROM shoulder --> fingers Subjective General Chart Reviewed: Yes Patient assessed for rehabilitation services?: Yes Additional Pertinent Hx: R AKA Response to previous treatment: Patient with no complaints from previous session Family / Caregiver Present: No Diagnosis: Left supracondylar humerus fracture, closed. s/p ORIF L distal humeral shaft 05/24 Subjective Subjective: Pt lying in bed upon entry. Pt L hand dominant. Agreeable to OT services. Patient Currently in Pain: Denies Pain Assessment Pain Assessment: 0-10 Pain Level: 0 POSS Score (Patient Ctrl Analgesia): 1 Vital Signs Patient Currently in Pain: Denies Social/Functional History Social/Functional History Lives With: Alone Type of Home: Apartment Home Layout: One level Home Access: Ramped entrance Bathroom Shower/Tub: Tub/Shower unit Bathroom Toilet: Standard Bathroom Equipment: Grab bars in shower, Tub transfer bench, Grab bars around toilet Bathroom Accessibility: Accessible Home Equipment: Lift chair, 4 wheeled walker Receives Help From: Family ADL Assistance: Independent Homemaking Assistance: Independent Ambulation Assistance: Independent (with walker) Transfer Assistance: Independent (with lift chair) Mode of Transportation: [facility] Occupation: Retired Additional Comments: Patient states his daughter will be staying with him for a couple day upon return home. Objective Vision: Impaired Vision Exceptions: (wears contacts) Hearing: Exceptions to WFL Hearing Exceptions: Hard of hearing/hearing concerns;Right hearing aid Orientation Overall Orientation Status: Within Normal Limits Observation/Palpation Posture: Fair Observation: R AKA with prosthesis in room; LUE wrapped with michael bandage in sling; sling removed due to improper fit and orders are donned for comfort (pt denies pain). Edema: L hand Balance Sitting Balance: Contact guard assistance (for safety while seated during donning of prosthesis) Standing Balance: Moderate assistance (x2 with magan walker) Functional Mobility Functional - Mobility Device: Hemiwalker Activity: Other (EOB-- 5 feet-- to chair) Assist Level: Moderate assistance (x2) Functional Mobility Comments: Mod assist x2 for safety and support. Pt decreased stability during ambulation. ADL LE Dressing: Maximum assistance Additional Comments: Tx initiated: Pt mod assist to don R prosthesis and L shoe while EOB; estimate max assist for general LB dressing. Based on functional observation pt would be mod assist for toileting, min assist for UB dressing/bathing. Tone RUE RUE Tone: Normotonic Tone LUE LUE Tone: Normotonic Coordination Movements Are Fluid And Coordinated: Yes Bed mobility Supine to Sit: Moderate assistance;2 Person assistance Scooting: Moderate assistance;2 Person assistance Comment: HOB elevated: Pt uses RUE to self support using bed rails and therapist arm. Additional verbal cues needed to maintain NWB on LUE. Transfers Sit to stand: Moderate assistance;2 Person assistance (magan-walker) Stand to sit: Moderate assistance;2 Person assistance (magan-walker) Transfer Comments: Mod assist x2 for safety and balance during transfers Cognition Overall Cognitive Status: WFL Cognition Comment: Good historian; insists that MD cleared him to use his UPwalker despite being NWB LUE Perception Overall Perceptual Status: WFL Sensation Overall Sensation Status: Impaired (Numbness to L hand and shoulder) Type of ROM/Therapeutic Exercise Type of ROM/Therapeutic Exercise: AROM Exercises Shoulder Flexion: RUE x10 Shoulder ABduction: RUE x10 Elbow Flexion: RUE x10 Wrist Flexion: BILAT UE x10 Wrist Extension: BILAT UE x10 Finger Flexion: BILAT UE x10 Finger Extension: BILAT UE x10 LUE AROM (degrees) LUE General AROM: WFL hand and wrist RUE AROM (degrees) RUE General AROM: 3/4 shoulder, WFL distally LUE Strength LUE Strength Comment: 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 RUE Strength RUE Strength Comment: 3-/5 shoulder, 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 Plan Plan Times per week: 5 Plan weeks: 4 Current Treatment Recommendations: Strengthening, Gait Training, Patient/Caregiver Education & Training, Equipment Evaluation, Education, & procurement, ROM, Balance Training, Functional Mobility Training, Endurance Training, Safety Education & Training, Self-Care / ADL, Pain Management, Stair training OutComes Score AM-PAC Daily Activity Inpatient How much help for putting on and taking off regular lower body clothing?: A Lot How much help for Bathing?: A Lot How much help for Toileting?: A Lot How much help for putting on and taking off regular upper body clothing?: A Little How much help for taking care of personal grooming?: A Little How much help for eating meals?: None AM-PAC Inpatient Daily Activity Raw Score: 16 AM-PAC Inpatient ADL T-Scale Score : 35.96 ADL Inpatient CMS 0-100% Score: 53.32 ADL Inpatient CMS G-Code Modifier : CK Goals Short term goals Time Frame for Short term goals: 4 weeks Short term goal 1: LB dress with set up, supervision and assistive equipment Short term goal 2: toilet transfer with modif indep Short term goal 3: complete toileting with modif indep Short term goal 4: complete sink level grooming with supervision and set up. Patient Goals Patient goals : return home Therapy Time Individual Concurrent Group Co-treatment Time In 0954 Time Out 1027 Minutes 33 Timed Code Treatment Minutes: 10 Minutes (ADL) Goals and/or treatment plan was established in collaboration with patient/family/other representatives. Patient's Occupational Therapy Plan [facility]. Pt requires skill of 2 therapists for safety and positioning. Avni Jones S/OT Physical Therapy Facility/Department: [facility] TELEMETRY Initial Assessment NAME: Albin Issa : 1955 Date of Service: 05/25/2021 Discharge Recommendations: IP Rehab PT Equipment Recommendations Equipment Needed: (TBD at next level of care) Assessment Body structures, Functions, Activity limitations: Decreased functional mobility ;Decreased ADL status;Decreased endurance;Decreased strength;Decreased balance Assessment: Patient admitted due to fall with closed fracture of lower epiphysis of humerus s/p ORIF on 05/24 and presents with the above deficits. Patient is currently NWB through LUE with sling PRN for comfort. He also has h/o R AKA with prosthesis. Patient required mod A x2 this date for bed mobility and transfers. He ambulated 8 feet using hemiwalker and RLE prosthesis with mod A x2. Patient with good effort today but is unsafe to return home where he lives alone. He was previously using UPwalker but is now limited by LUE NWB status. Feel patient would benefit from inpatient rehab stay in order to improve functional strength and mobility for safe return home. Treatment Diagnosis: Fall with closed fracture of lower epiphysis of humerus s/p ORIF on 05/24 Specific instructions for Next Treatment: Gait training using hemiwalker Prognosis: Good Decision Making: Medium Complexity PT Education: Goals;PT Role;Plan of Care;Weight-bearing Education;Adaptive Device Training;Functional Mobility Training REQUIRES PT FOLLOW UP: Yes Activity Tolerance Activity Tolerance: Patient limited by fatigue;Patient limited by endurance Activity Tolerance: Limited by NWB status of LUE Patient Diagnosis(es): There were no encounter diagnoses. has a past medical history of Arthritis, CAD (coronary artery disease), Cancer (HCC), Cardiac defibrillator in place, Cellulitis, Chronic acquired lymphedema, GERD (gastroesophageal reflux disease), High cholesterol, History of blood transfusion, History of kidney stones, Hypertension, TARAN on CPAP, Pacemaker, Radiation, Restless leg syndrome, Rotator cuff injury, and Wound, open with complication. has a past surgical history that includes Pacemaker insertion (2008); joint replacement (Left, 09/2009); Percutaneous Transluminal Coronary Angio (2004); Leg Surgery (Right, 1998); Soft Tissue Tumor Resection (Right, 06/1997); Soft Tissue Biopsy (Right, 05/1997); shoulder surgery (Left); Cardiac defibrillator placement (2010); Cardiac surgery (2004); shoulder surgery (Right, ); above knee amputation (Right, 01/26/2019); Leg Surgery (Right, 01/28/2019); Colonoscopy; other surgical history (Right, 03/05/2019); pacemaker placement; Intracapsular cataract extraction; other surgical history (05/07/2019); and orif humerus decompression (Left, 05/24/2021). Restrictions Restrictions/Precautions Restrictions/Precautions: Weight Bearing, Fall Risk, Up as Tolerated Required Braces or Orthoses?: Yes Lower Extremity Weight Bearing Restrictions Right Lower Extremity Weight Bearing: Weight Bearing As Tolerated Left Lower Extremity Weight Bearing: Weight Bearing As Tolerated Upper Extremity Weight Bearing Restrictions Right Upper Extremity Weight Bearing: Weight Bearing As Tolerated Left Upper Extremity Weight Bearing: Non Weight Bearing Required Braces or Orthoses Left Upper Extremity Brace/Splint: Sling (PRN for comfort only) Position Activity Restriction Other position/activity restrictions: Per ortho note, full ROM shoulder --> fingers Vision/Hearing Vision: Impaired Vision Exceptions: (wears contacts) Hearing: Exceptions to WFL Hearing Exceptions: Hard of hearing/hearing concerns;Right hearing aid Subjective General Chart Reviewed: Yes Patient assessed for rehabilitation services?: Yes Additional Pertinent Hx: Previous R AKA, pacemaker Response To Previous Treatment: Not applicable Family / Caregiver Present: No Diagnosis: Fall with closed fracture of lower epiphysis of humerus s/p ORIF on 05/24 Follows Commands: Within Functional Limits Subjective Subjective: Patient lying in bed upon arrival, doctor of nursing practice finishing assessing vitals. Patient pleasant and agreeable to therapy. Patient seen with OT due to 2-person assist needed for safety. Pain Screening Patient Currently in Pain: Denies Pain Assessment Pain Assessment: 0-10 Pain Level: 0 POSS Score (Patient Ctrl Analgesia): 1 Vital Signs Patient Currently in Pain: Denies Pre Treatment Pain Screening Intervention List: Patient able to continue with treatment Orientation Orientation Overall Orientation Status: Within Normal Limits Social/Functional History Social/Functional History Lives With: Alone Type of Home: Apartment Home Layout: One level Home Access: Ramped entrance Bathroom Shower/Tub: Tub/Shower unit (tub transfer bench) Bathroom Toilet: Standard Bathroom Accessibility: Accessible Home Equipment: (UPwalker, lift recliner) Receives Help From: Family ADL Assistance: Independent Homemaking Assistance: Independent Ambulation Assistance: Independent (Using UPwalker) Transfer Assistance: Independent Mode of Transportation: [facility] Occupation: Retired Additional Comments: Patient states his daughter will be staying with him for a couple day upon return home. Cognition Cognition Overall Cognitive Status: [facility] Cognition Comment: Good historian; insists that cleared him to use his UPwalker despite being NWB LUE Objective Observation/Palpation Posture: Fair Observation: R AKA with prosthesis in room; LUE wrapped with michael bandage; sling with poor fit, noted erythema to R lateral neck area due to small fit of sling, removed sling this date as it is only needed for comfort and patient denies any pain at this time. Edema: L hand AROM RLE (degrees) RLE General AROM: AKA, hip with limited extension in standing AROM LLE (degrees) LLE AROM : WFL Strength RLE Comment: Hip flex 3+/5, ext 3-/5 Strength LLE Comment: Grossly 3+/5 throughout Sensation Overall Sensation Status: Impaired (Numbness to L hand and shoulder) Bed mobility Supine to Sit: Moderate assistance;2 Person assistance Scooting: Moderate assistance;2 Person assistance Comment: Performed with HOB elevated and using bed rail with RUE only. Patient required cues to maintain LUE NWB throughout bed mobility tasks. Once sitting EOB, patient required mod A to don prosthesis. Transfers Sit to Stand: Moderate Assistance;2 Person Assistance Stand to sit: Moderate Assistance;2 Person Assistance Comment: Cues given to avoid pushing through LUE with sit <> stand or reaching back with LUE for stand <> sit. Patient required assistance to lock prosthesis in place once standing. Cues also given to move COG anteriorly over ELKE. Ambulation Ambulation?: Yes WB Status: NWB LUE More Ambulation?: No Ambulation 1 Surface: level tile Device: Hemiwalker Assistance: Moderate assistance;2 Person assistance Quality of Gait: Flexed trunk, decreased bilat hip extension Gait Deviations: Slow Stephanie;Increased ELKE;Decreased step length Distance: 8 feet Comments: RLE prosthesis donned. Patient leaning heavily through hemiwalker with decreased bilat LE step length. Required mod A x2 for stability. Stairs/Curb Stairs?: No Balance Posture: Fair Sitting - Static: Good Standing - Static: Fair;- Standing - Dynamic: Poor;+ Comments: Patient required min/mod A to stand statically at hemiwalker with RUE support only Plan Plan Times per week: 7 Times per day: Daily Plan weeks: 2 Specific instructions for Next Treatment: Gait training using hemiwalker Current Treatment Recommendations: Strengthening, Transfer Training, Endurance Training, ROM, Patient/Caregiver Education & Training, Balance Training, Gait Training, Functional Mobility Training, Safety Education & Training Safety Devices Type of devices: Patient at risk for falls, Call light within reach, Left in chair, Gait belt Restraints Initially in place: No G-Code OutComes Score AM-PAC Score AM-PAC Inpatient Mobility Raw Score : 8 (05/25/211106) AM-PAC Inpatient T-Scale Score : 28.52 (05/25/211106) Mobility Inpatient CMS 0-100% Score: 86.62 (05/25/211106) Mobility Inpatient CMS G-Code Modifier : CM (06/24/21 1107) Goals Short term goals Time Frame for Short term goals: 2 weeks Short term goal 1: Perform bed mobility with SBA Short term goal 2: Perform transfers with min A Short term goal 3: Ambulate 30 feet using hemiwalker with min A Patient Goals Patient goals : To go home Therapy Time Individual Concurrent Group Co-treatment Time In 0954 0954 (Co-tx needed for safety) Time Out 1027 1027 Minutes 33 33 Timed Code Treatment Minutes: 9 Minutes (FA x1) Maria L Jeffers PT PT wore kN95 mask, goggles, and gloves throughout entire session with patient. Patient s Physical Therapy Plan of Care supervision is transferred to [facility] Physical Therapist. Nutrition rescreen completed. Chart reviewed. Patient to be monitored and followed by the diet emergency department technician. Images from the original note were not included. Daily Trauma Progress Note Nurse Practitioner 05/25/2021 6:23 AM Admit Date: 05/23/2021 Post Trauma Day 2 Fall SH HISTORY OF TRAUMATIC EVENT: 66 y.o. male status post fall from standing. The incident happened around afternoon on 05/23/21 at home. When the event happened the patient was bending down to pickle solution maker a delivery box when his Rolator got away from him. He ended up riding the Rolator down the step ramp off his front porch and nose dived over the handlebars. He did not hit his head, his nose brushed the ground . INJURIES: Left humerus fracture PROCEDURES: ORIF Left humerus shaft fracture INCIDENTAL FINDINGS: None CHIEF COMPLAINT: Fall at home PREVIOUS 24 HOUR EVENTS: ORIF Left humerus Consults: IP CONSULT TO ORTHOPEDIC SURGERY IP CONSULT TO RESPIRATORY CARE IP CONSULT TO CARDIOLOGY MEDICATIONS: Current Facility-Administered Medications Medication Dose Route Frequency Provider Last Rate Last Admin atorvastatin (LIPITOR) tablet 40 mg 40 mg Oral Nightly Sd Moreno PA-C 40 mg at 05/24/21 2205 buPROPion (WELLBUTRIN SR) extended release tablet 150 mg 150 mg Oral BID MIKA Del Cid-C 150 mg at 05/24/212204 carvedilol (COREG) tablet 3.125 mg 3.125 mg Oral BID WC MIKA Del Cid-C 3.125 mg at 05/24/21930 [Held by provider] clopidogrel (PLAVIX) tablet 75 mg 75 mg Oral Daily MIKA Del Cid-C escitalopram (LEXAPRO) tablet 20 mg 20 mg Oral Daily MIKA Del Cid-C 20 mg at 05/24/21930 [Held by provider] furosemide (LASIX) tablet 80 mg 80 mg Oral Nightly MIKA Del Cid-C gabapentin (NEURONTIN) capsule 300 mg 300 mg Oral Nightly MIKA Del Cid-C 300 mg at 05/24/212203 isosorbide mononitrate (IMDUR) extended release tablet 60 mg 60 mg Oral BID MIKA Del Cid-C 60 mg at 05/24/212203 cetirizine (ZYRTEC) tablet 10 mg 10 mg Oral Daily MIKA Del Cid-C 10 mg at 05/24/21930 [Held by provider] meloxicam (MOBIC) tablet 15 mg 15 mg Oral Daily MIKA Del Cid-C niacin (NIASPAN) extended release tablet 1,000 mg 1,000 mg Oral Nightly Sd Moreno PA-C potassium chloride (KLOR-CON M) extended release tablet 40 mEq 40 mEq Oral Daily MIKA Del Cid-C 40 mEq at 05/24/21930 ramipril (ALTACE) capsule 2.5 mg 2.5 mg Oral Daily Sd Moreno PA-C 2.5 mg at 05/24/21940 ranolazine (RANEXA) extended release tablet 1,000 mg 1,000 mg Oral BID Sd Moreno PA-C 1,000 mg at 05/24/212203 sodium chloride flush 0.9 % injection 5-40 mL 5-40 mL Intravenous 2 times per day Sd Moreno PA-C 10 mL at 05/24/212204 sodium chloride flush 0.9 % injection 5-40 mL 5-40 mL Intravenous PRN MIKA Del Cdi-C 0.9 % sodium chloride infusion 25 mL Intravenous PRN Sd Moreno PA-C lactated ringers infusion Intravenous Continuous Sd Moreno PA-C 75 mL/hr at 05/24/21 0305 New Bag at 05/24/21 0305 acetaminophen (TYLENOL) tablet 1,000 mg 1,000 mg Oral 3 times per day Sd Moreno PA-C 1,000 mg at 05/24/21 220 oxyCODONE (ROXICODONE) immediate release tablet 5 mg 5 mg Oral Q4H PRN Sd Moreno PA-C Or oxyCODONE (ROXICODONE) immediate release tablet 10 mg 10 mg Oral Q4H PRN Sd Moreno PA-C 10 mg at 05/24/212204 HYDROmorphone (DILAUDID) injection 0.25 mg 0.25 mg Intravenous Q3H PRN Sd Moreno PA-C Or HYDROmorphone (DILAUDID) injection 0.5 mg 0.5 mg Intravenous Q3H PRN Sd Moreno PA-C ondansetron (ZOFRAN) injection 4 mg 4 mg Intravenous Q6H PRN Sd Moreno PA-C aspirin EC tablet 81 mg 81 mg Oral Daily Sd Moreno PA-C senna (SENOKOT) tablet 8.6 mg 1 tablet Oral Nightly Sd Moreno PA-C 8.6 mg at 05/24/212204 polyethylene glycol (GLYCOLAX) packet 17 g 17 g Oral Daily Sd Moreno PA-C docusate sodium (COLACE) capsule 100 mg 100 mg Oral BID Sd Moreno PA-C 100 mg at 05/24/212203 ceFAZolin (ANCEF) 3,000 mg in dextrose 5 % 100 mL IVPB 3,000 mg Intravenous Q8H Sd Moreno PA-C Stopped at 05/25/21 0255 LORazepam (ATIVAN) tablet 0.5 mg 0.5 mg Oral Nightly PRN Renny Biswas MD 0.5 mg at 05/25/21 0002 ARE THERE PERTINENT UPDATES TO PAST,FAMILY, OR SOCIAL HISTORY?: No Subjective: Patient states pain is well controlled at this time. Block is slowly wearing off. Denies headache, nausea, vomiting, SOB or chest pain. Review of Systems Constitutional: Positive for activity change. Negative for chills and fever. HENT: Negative for facial swelling, hearing loss and sinus pain. Eyes: Negative for photophobia and visual disturbance. Respiratory: Negative for chest tightness, shortness of breath and wheezing. Cardiovascular: Negative for chest pain and palpitations. Gastrointestinal: Positive for vomiting. Negative for abdominal distention, abdominal pain, constipation and nausea. Genitourinary: Negative for difficulty urinating and hematuria. Musculoskeletal: Positive for myalgias. Negative for arthralgias. Neurological: Negative for dizziness, seizures and weakness. Hematological: Does not bruise/bleed easily. Psychiatric/Behavioral: Negative for agitation and hallucinations. The patient is not nervous/anxious. All other systems reviewed and are negative. PHQ In the last 2 weeks have you had: 1. Little interest or pleasure in doing things No 2. Been feeling down, depressed, or hopeless No If greater then 0, place CLP consult Date PHQ completed: 05/25 Objective: Patient Vitals for the past 24 hrs: BP Temp Temp src Pulse Resp SpO2 05/25/21 0525 103/65 97.5 F (36.4 C) Temporal 84 18 94 % 05/25/21 0051 (!) 96/58 96.6 F (35.9 C) Temporal 87 18 95 % 05/24/21 2240 96/73 96.5 F (35.8 C) Temporal 93 18 93 % 05/24/21 1831 109/74 97 F (36.1 C) Temporal 78 16 94 % 05/24/21 1715 112/71 81 14 95 % 05/24/21 1646 (!) 106/51 75 16 98 % 05/24/21 1630 121/71 97.4 F (36.3 C) Temporal 84 16 98 % 05/24/21 1313 89/64 97.8 F (36.6 C) Temporal 62 16 95 % 05/24/21 0824 126/62 96.9 F (36.1 C) Temporal 63 18 97 % Last BM: MANAGER ICU Diet: Reg CVP: No Chest Tubes: R: No Output: na Air Leak: na N/A L: No Output: na Air Leak: na N/A PHYSICAL: Physical Exam Vitals and nursing note reviewed. Constitutional: General: He is not in acute distress. Appearance: Normal appearance. He is obese. He is not ill-appearing. HENT: Head: Normocephalic and atraumatic. Right Ear: External ear normal. Left Ear: External ear normal. Nose: Nose normal. No congestion or rhinorrhea. Mouth/Throat: Mouth: Mucous membranes are moist. Pharynx: Oropharynx is clear. Eyes: General: Right eye: No discharge. Left eye: No discharge. Conjunctiva/sclera: Conjunctivae normal. Pupils: Pupils are equal, round, and reactive to light. Cardiovascular: Rate and Rhythm: Normal rate. Pulses: Normal pulses. Pulmonary: Effort: Pulmonary effort is normal. No respiratory distress. Breath sounds: Normal breath sounds. No stridor. No wheezing. Chest: Chest wall: No tenderness. Abdominal: General: There is no distension. Palpations: Abdomen is soft. Tenderness: There is no abdominal tenderness. There is no guarding. Musculoskeletal: General: Swelling present. No tenderness. Cervical back: Normal range of motion and neck supple. No rigidity or tenderness. Comments: Left arm in splint and sling Able to wiggle fingers Edema noted on fingers BCR all fingers + 2 radial pulse RLE with AKA well healed Skin: General: Skin is warm and dry. Capillary Refill: Capillary refill takes less than 2 seconds. Coloration: Skin is not jaundiced or pale. Neurological: General: No focal deficit present. Mental Status: He is alert and oriented to person, place, and time. Cranial Nerves: No cranial nerve deficit. Sensory: No sensory deficit. Psychiatric: Mood and Affect: Mood normal. Sutures or dora? Yes, incisional O2: RA / / / Data Review Data CBC with Differential: Lab Results Component Value Date WBC 10.4 05/25/2021 RBC 3.90 05/25/2021 HGB 11.9 05/25/2021 HCT 34.4 05/25/2021 PLT 171 05/25/2021 CMP: Lab Results Component Value Date NA 137 05/25/2021 K 4.5 05/25/2021 CL 109 05/25/2021 CO2 23 05/25/2021 BUN 15 05/25/2021 CREATININE 1.13 05/25/2021 GLUCOSE 122 05/25/2021 LABALBU 3.0 01/28/2019 CALCIUM 9.4 05/25/2021 BMP: Hepatic Function Panel:Ionized Calcium: No results found for: IONCA Magnesium: Lab Results Component Value Date MG 2.0 05/25/2021 Phosphorus: Lab Results Component Value Date PHOS 1.8 05/25/2021 PT/INR: Lab Results Component Value Date PROTIME 11.2 05/24/2021 INR 1.0 05/24/2021 PTT: No results found for: APTT[APTT Last 3 Troponin: No results found for: TROPONINI Urine Culture: No components found for: CURINE Blood Culture: No components found for: CBLOOD, CFUNGUSBL Blood Culture from Central Line: No components found for: CBLOODLN Stool Culture: No components found for: CSTOOL Sputum Culture: No components found for: CSPUTUM Sputum Culture for AFB: No components found for: CAFBSM Wound Culture: Radiology: XR HUMERUS LEFT (MIN 2 VIEWS) Result Date: 05/24/2021 Patient Name: ALBIN ISSA Diagnostic Radiology ACCESSION EXAM DATE/TIME PROCEDURE ORDERING PROVIDER [id number] 05/24/2021 17:43 EDT CR Humerus 2+ Views Left [id number] -SD MORENO CPT code 67238 Reason For Exam (CR Humerus 2+ Views Left) s/p ORIF left distal humeral shaft fx Report Left humerus CLINICAL INDICATION: Open reduction and internal fixation COMPARISON: Left elbow 05/24/2021 AP and lateral views of the left humerus were obtained. Metallic plate has been placed along the lateral aspect of the mid and distal humeral shaft and the lateral condyle fixed with multiple screws. The distal humeral shaft fracture is aligned anatomically. Skin dora are noted in the lateral soft tissues or in the shoulder and elbow joints are intact. IMPRESSION: Internal fixation of the distal humeral fracture with anatomic alignment Report Dictated on --- Final --- Dictated: 05/24/2021 5:44 pm Dictating Physician: MD ROJAS DIANE Signed Date and Time: 05/24/2021 5:46 pm Signed by: MD ROJAS DIANE Transcribed Date and Time: 05/24/2021 5:44 XR ELBOW LEFT (MIN 3 VIEWS) Result Date: 05/24/2021 Patient Name: ALBIN ISSA Diagnostic Radiology ACCESSION EXAM DATE/TIME PROCEDURE ORDERING PROVIDER [id number] 05/24/2021 05:59 EDT CR Elbow 3+ Views Left MD FONTANA ALEX CPT code 26238 Reason For Exam (CR Elbow 3+ Views Left) L elbow pain Report Indication: Left elbow pain. AP, lateral and oblique views of the left elbow. Images show an oblique nondisplaced fracture of the distal diaphysis of the humerus. Elbow joint space is narrowed. Proximal aspect of the radius and ulna appear intact. No joint effusion. IMPRESSION: Displaced fracture of the distal humerus. Report Dictated on --- Final --- Dictated: 05/24/2021 8:44 am Dictating Physician: MD HOPKINS LAURA Signed Date and Time: 05/24/2021 8:47 am Signed by: MD HOPKINS LAURA Transcribed Date and Time: 05/24/2021 8:44 XR Chest 1 VW Result Date: 05/24/2021 Patient Name: ALBIN ISSA Diagnostic Radiology ACCESSION EXAM DATE/TIME PROCEDURE ORDERING PROVIDER [id number] 05/24/2021 05:59 EDT CR Chest 1 View Frontal MD FONTANA ALEX CPT code 22542 Reason For Exam (CR Chest 1 View Frontal) preop Report INDICATION:Preop PORTABLE CHEST: COMPARISON: 03/19/2004 Distortion and prominence of bronchovascular markings is similar to the prior examination and may be chronic. No romy edema. No gross pleural effusions. No focal areas of consolidation. Heart size is mildly enlarged and stable. Midline sternotomy wires are present. Bipolar pacemaker leads appear in satisfactory position. IMPRESSION: Prominent bronchovascular markings, likely chronic. Mild venous congestion is a possibility. No romy edema or focal areas of consolidation. Report Dictated on --- Final --- Dictated: 05/24/2021 8:47 am Dictating Physician: MD HOPKINS LAURA Signed Date and Time: 05/24/2021 8:49 am Signed by: MD HOPKINS LAURA Transcribed Date and Time: 05/24/2021 8:47 Patient Active Problem List Diagnosis Primary osteoarthritis of left hip S/P AKA (above knee amputation), right (HCC) MRSA (methicillin resistant Staphylococcus aureus) infection Closed fracture of lower epiphysis of humerus Left supracondylar humerus fracture, closed, initial encounter ASSESSMENT: 66 year old male s/p fall from standing with left humerus fracture PLAN: Neuro/Spine: - Pain control with scheduled Tylenol, prn oxy HEENT: - No issues Cardiovascular: - Cardiac history-cards consult for surgical clearance obtained and signed off - Restart Lasix and Plavix - HDS Pulmonary: - IS, C&DB FEN/GI: - Reg diet : - CrCl: 87 Heme: - Hgb: 11.9 from 12.8 ID: - Ancef per ortho, last dose 05/25 at 0700 Endo: - No issues Lines/Devices: - PIV Prophylaxis: DVT: Lovenox Has DVT PPX been started? Yes If no, why? na GI: None Pressure Ulcer: None Musculoskeletal: - Left humerus fracture-s/p ORIF 05/24, NWB, remove dressing POD#2 WB Status: RUE:AT LUE: NWB RLE: AT LLE: AT Disposition: PT for dispo planning. Anticipate discharge home today or tomorrow. Associated attestation - Mayr Anne Hardy MD - 05/25/2021 12:39 PM EDT ~~~~~~~~~~~~~~~~~~~~~~~~~~~~~~~~~ ~~~~~~~~~~~~~~~~~~~~~~~~~~~~ ATTENDING ADDENDUM CC: Left arm pain Active Diagnoses/Problems this Admission: Hospital Problems Last Modified POA Closed fracture of lower epiphysis of humerus 05/24/2021 Yes Left supracondylar humerus fracture, closed, initial encounter 05/24/2021 Yes Ischemic cardiomyopathy 05/25/2021 Yes I personally supervised the MARISELA/ROMEL in the evaluation and development of a treatment plan for this patient on the same day of service as above. I personally discussed the review of systems and interviewed the patient along with performing a physical examination. I reviewed the recent events, imaging, labs, vital signs. In addition, I discussed the patient's condition and treatment options with him/her when possible. I have also reviewed and agree with the past medical, family, and social history unless otherwise noted. All of the patient's questions were answered and family updated when appropriate and possible. 66M s/p mech fall with left humerus fx pmhx of TARAN on CPAP, CAD, GERD, HTN Patient has right AKA Multimodal pain control Restart home medications - start Plavix and Lasix today Appreciate orthopedic recommendations - Sling as needed, remove dressing postoperative day 2 - Ice and elevate - Follow-up in 2 weeks - abx 24 hours PTOT - IP rehab Appreciate cards recs - excess fluids, restart home medications, follow outpatient Discuss CPAP settings with patient Placement pending Mary Anne Hardy MD Division of Trauma Department of Surgery [facility] Pager: [phone] ~~~~~~~~~~~~~~~~~~~~~~~~~~~~~~~~~ ~~~~~~~~~~~~~~~~~~~~~~~~~~~~ This note may have been dictated using [employer] Edition 2.6 and/or [place] Voice Recognition Feature. The document was proofread; however, unrecognized voice recognition rn otolaryngology errors may be present. Images from the original note were not included. [facility] TELEMETRY [address] [id number] Dept: [phone] Loc: [phone] Orthopedic Progress Note Name: Albin Issa Date:05/25/2021 Attending:Roni Figueroa MD Subjective Pain well controlled. Nerve block beginning to wear off, however still working proximally. Denies issues. Would like to be discharged later today if possible. Objective Vitals: Vitals: 05/24/21 1831 05/24/21 2240 05/25/21 0051 05/25/21 0525 BP: 109/74 96/73 (!) 96/58 103/65 Pulse: 78 93 87 84 Resp: 16 18 18 18 Temp: 97 F (36.1 C) 96.5 F (35.8 C) 96.6 F (35.9 C) 97.5 F (36.4 C) TempSrc: Temporal Temporal Temporal Temporal SpO2: 94% 93% 95% 94% Weight: Height: Physical Exam: General: NAD LUE Sling in place Dressing: Clean/Dry/Intact SILT: Radial/Ulnar/Median distributions, diminished sensation in the Axillary distribution 2/2 block Motor: +AIN/PIN/Hand Intrinsic Pulses: Palpable Radial LABS: Recent Labs 05/24/21 0357 05/25/21 0005 WBC 7.6 10.4 HGB 12.8* 11.9* HCT 37.4* 34.4* PLT 169 171 Recent Labs 05/24/21 0357 05/25/21 0005 NA 137 137 K 4.0 4.5 CL 109* 109* CO2 BUN 15 15 CREATININE 1.02 1.13 CALCIUM 9.3 9.4 PHOS 2.9 1.8* Recent Labs 05/24/21 035 INR 1.0 No results for input(s): SEDRATE, CRP in the last 72 hours. No results for input(s): HCG in the last 72 hours. Assessment Albin is a 66 y.o.male s/p ORIF L humerus on 05/24 Plan -NWB LUE -Ancef x2 doses -PT/OT -Sling prn -Dressing: Okay to remove dressing POD#2, if dry leave open to air, if saturated replace PRN -Ice/elevate -Neurovascular/skin checks q4hrs -DVT, medical, and pain management per 1 -F/u with Dr. Biswas in 2 weeks -d/c instructions in chart -Ok for dc from ortho standpoint once passes PT and abx finished Carol Ascencio MD Orthopaedic Surgery, PGY-2 [phone] Patient to be transported back to [facility]. Telephone report given to JUANCHO Wells with all questions answered at this time. Vital signs returned to baseline, patient awakens easily to voice, oriented x4. Monitoring completed. Patient transported via bed with transporters x2. Arrived from OR see notes. No falls risk wristband noted on pt, one applied to right wrist pre op Orders received, chart review performed. Spoke with nurse who reports patient was just taken to OR for possible ORIF. Will re-attempt tomorrow. Name: Albin Issa : 1955 (home) Date: 05/24/2021 Orthopaedic Progress Note: Subjective: Resting in bed. No acute events overnight. Denies any numbness or tingling. 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 Cardiac defibrillator in place Cellulitis 06/2014 right leg Chronic acquired lymphedema right leg GERD (gastroesophageal reflux disease) High cholesterol History of blood transfusion History of kidney stones Hypertension TARAN on CPAP Pacemaker Radiation Restless leg syndrome Rotator cuff injury Wound, open with complication right AKA Objective: Vitals: 05/24/21 0532 BP: (!) 98/46 Pulse: 65 Resp: 16 Temp: 96.8 F (36 C) SpO2: 93% Recent Results (from the past 24 hour(s)) Basic Metabolic Panel Collection Time: 05/24/21 3:57 AM Result Value Ref Range Sodium 137 135 - 145 mmol/L Potassium 4.0 3.5 - 5.1 mmol/L Chloride 109 (H) 98 - 107 mmol/L CO2 23 22 - 30 mmol/L Anion Gap 5 3 - 13 mmol/L Glucose 100 70 - 100 mg/dL BUN 15 7 - 20 mg/dL CREATININE 1.02 0.52 - 1.25 mg/dL eGFR 88.3 >60 mL/min EGFR IF NonAfrican Mongolian 76.2 >60 mL/min Calcium 9.3 8.4 - 10.4 mg/dL Magnesium Collection Time: 05/24/21 3:57 AM Result Value Ref Range Magnesium 2.0 1.6 - 2.3 mg/dL Phosphorus Collection Time: 05/24/21 3:57 AM Result Value Ref Range Phosphorus 2.9 2.5 - 4.5 mg/dL CBC auto differential Collection Time: 05/24/21 3:57 AM Result Value Ref Range WBC 7.6 3.6 - 10.7 10*3/uL RBC 4.17 (L) 4.40 - 5.90 10*6/uL Hemoglobin 12.8 (L) 13.0 - 18.0 g/dL Hematocrit 37.4 (L) 40.0 - 52.0 % MCV 89.9 80.0 - 98.0 fL MCH 30.8 26.0 - 34.0 pg MCHC 34.3 32.0 - 36.0 % RDW 14.2 11.5 - 14.5 % Platelets 169 140 - 440 10*3/uL MPV 8.0 7.4 - 10.4 fL Granulocytes % 72.8 40.0 - 80.0 % Lymphocyte % 17.3 (L) 20.0 - 40.0 % Monocytes 6.1 2.0 - 10.0 % Eosinophils 3.3 1.0 - 6.0 % Basophils 0.5 0.0 - 2.0 % Absolute Neut # 5.5 1.8 - 7.0 10*3/uL Absolute Lymph # 1.3 1.0 - 4.3 10*3/uL Absolute Atlantic # 0.5 0.0 - 0.8 10*3/uL Absolute Eos # 0.3 0.0 - 0.5 10*3/uL Absolute Baso # 0.0 0.0 - 0.2 10*3/uL TYPE AND SCREEN Collection Time: 05/24/21 3:57 AM Result Value Ref Range ABO Grouping O NA Rh Type POS NA Antibody Screen NEG NA Protime-INR Collection Time: 05/24/21 3:57 AM Result Value Ref Range Protime 11.2 9.0 - 12.0 s INR 1.0 0.9 - 1.1 NA Physical Exam: General: no acute distress and alert/oriented x3 Left Upper Extremity: Splint c/d/i Motor + AIN/PIN/Ulnar, + Radial Nerve SILT R/U/M Palpable radial artery Imaging: none Assessment: Mr. Albin Issa is a 66 y.o. year old male left extra-articular humerus fracture Plan: -Will d/w Dr. Biswas -Plan for possible ORIF 05/24 v 05/[address] Biswas -Added -Cleared per trauma, cardiac clearance p -Consented -Labs complete -NWB LUE -Splint/sling LUE - keep c/d/i -Ice -Pain and medical management per primary team -Ortho to follow documented in this encounter [facility] Work Phone: Hospital Discharge instructions 05-31-2021 Discharge Instr - ActivityDischarge Instr - DietDischarge Instr - COCAdditional Instructions Note Date & Type Note Facility 05-31-2021 Hospital Discharg e instructions Keira Humphrey APRN - NP - 05/31/2021 3:20 PM EDT Per ortho instructions Keira Humphrey APRN - NP - 05/31/2021 3:20 PM EDT Good nutrition is important when healing from an illness, injury, or surgery. Follow any nutrition recommendations given to you during your hospital stay. If you were given an oral nutrition supplement while in the hospital, continue to take this supplement at home. You can take it with meals, in-between meals, and/or before bedtime. These supplements can be purchased at most local grocery stores, pharmacies, and chain [employer]-stores. If you have any questions about your diet or nutrition, call the hospital and ask for the dietitian. Regular diet Keira Humphrey APRN - [facility] - 05/25/2021 12:30 PM EDT Continuity of Care Form Patient Name: Albin Issa : 1955 Admit date: 05/23/2021 Discharge date: Code Status Order: Full Code Advance Directives: Advance Care Flowsheet Documentation Date/Time Healthcare Directive Type of Healthcare Directive Copy in Chart Healthcare Agent Appointed Healthcare Agent's Name Healthcare Agent's Phone Number 05/24/21 0337 No, patient does not have an advance directive for healthcare treatment -- -- -- -- -- Admitting Physician: Roni Figueroa MD PCP: SPEEDY PINK MD Discharging Nurse: Discharging Hospital Unit/Room#: [id number] Discharging Unit Phone Number: Emergency Contact: Extended Emergency Contact Information Primary Emergency Contact: Maddy Issa [facility] Relation: Lay Caregiver Past Surgical History: Past Surgical History: Procedure Laterality Date ABOVE KNEE AMPUTATION Right 01/26/2019 CARDIAC DEFIBRILLATOR PLACEMENT 2011 CARDIAC SURGERY 2005 bypass x 2 COLONOSCOPY INTRACAPSULAR CATARACT EXTRACTION OU JOINT REPLACEMENT Left 09/2009 hip LEG SURGERY Right 1998 seroma right thigh LEG SURGERY Right 01/28/2019 I&D and closure of right above-knee amputation 01/28/2019 ORIF HUMERUS DECOMPRESSION Left 05/24/2021 OTHER SURGICAL HISTORY Right 03/05/2019 revision right aka, closure OTHER SURGICAL HISTORY 05/07/2019 incision and drainage R AKA wound vac applied PACEMAKER INSERTION 2008 PACEMAKER PLACEMENT pacer/defib PTCA 2005 SHOULDER SURGERY Left rotator cuff repair SHOULDER SURGERY Right RCR and Biceps repair SOFT TISSUE BIOPSY Right 05/1997 bx right thigh mass/myxoid liposarcoma SOFT TISSUE TUMOR RESECTION Right 06/1997 radical resection right thigh sarcoma with wide resection Immunization History: There is no immunization history on file for this patient. Active Problems: Patient Active Problem List Diagnosis Code Primary osteoarthritis of left hip M16.12 S/P AKA (above knee amputation), right ([facility]) Z89.611 MRSA (methicillin resistant Staphylococcus aureus) infection A49.02 Closed fracture of lower epiphysis of humerus S49.109A Left supracondylar humerus fracture, closed, initial encounter S42.412A Ischemic cardiomyopathy I25.5 Isolation/Infection: Isolation No Isolation Patient Infection Status None to display Nurse Assessment: Last Vital Signs: BP (!) 120/59 Pulse 86 Temp 98.9 F (37.2 C) (Temporal) Resp 18 Ht 5' 11 (1.803 m) Wt 278 lb (126.1 kg) SpO2 92% BMI 38.77 kg/m Last documented pain score (0-10 scale): Pain Level: 0 Last Weight: Wt Readings from Last 1 Encounters: 05/24/21 278 lb (126.1 kg) Mental Status: {IP PT MENTAL STATUS::::0} IV Access: { MICHAELA IV ACCESS:656691140:::0} Nursing Mobility/ADLs: Walking {CHP DME ADLs:219435680:::0} Transfer {CHP DME ADLs:831087036:::0} Bathing {CHP DME ADLs:310428173:::0} Dressing {CHP DME ADLs:160813152:::0} Toileting {CHP DME ADLs:550301258:::0} Feeding {CHP DME ADLs:593230441:::0} [place] {CHP DME ADLs:630309623:::0} Med Delivery { MICHAELA MED Delivery:143471287:::0} Wound Care Documentation and Therapy: Negative Pressure Wound Therapy Leg Right;Upper (Active) Number of days: 762 Elimination: Continence: Bowel: {YES / NO:} Bladder: {YES / NO:} Urinary Catheter: {Urinary Catheter:982026368:::0} Colostomy/Ileostomy/Ileal Conduit: {YES / NO:} Date of Last BM: No intake or output data in the 24 hours ending 05/25/21 1230 No intake/output data recorded. Safety Concerns: { MICHAELA Safety Concerns:519180262:::0} Impairments/Disabilities: { MICHAELA Impairments/Disabilities:8221272 73:::0} Nutrition Therapy: Current Nutrition Therapy: { MICHAELA Diet List:969847913:::0} Routes of Feeding: {CHP DME Other Feedings:338881726:::0} Liquids: {Glass Block Bender liquid thickness:01480} Daily Fluid Restriction: {CHP DME Yes amt example:710615541:::0} Last Modified Barium Swallow with Video (Video Swallowing Test): {Done Not Done Date::::0} Treatments at the Time of Hospital Discharge: Respiratory Treatments: Oxygen Therapy: {Therapy; copd oxygen:72079:::0} Ventilator: {[facility] Vent List:242543666:::0} Rehab Therapies: {THERAPEUTIC INTERVENTION:2450719909} Weight Bearing Status/Restrictions: {[facility] Weight Bearin:::0} Other Medical Equipment (for information only, NOT a DME order): {EQUIPMENT:610223141} Other Treatments: Patient's personal belongings (please select all that are sent with patient): {CHP DME Belongings:812858781:::0} RN SIGNATURE: {Esignature:819248250:::0} CASE MANAGEMENT/SOCIAL WORK SECTION Inpatient Status Date: 05-23-21 Readmission Risk Assessment Score: Readmission Risk Risk of Unplanned Readmission: 10 Discharging to Facility/ Agency Name: [facility] Address:[address] [place] [address] Dialysis Facility (if applicable) Name: Address: Dialysis Schedule: Phone: Fax: Cement Tester Assistant/Accessibility Lift Technician signature: PHYSICIAN SECTION Prognosis: Good Condition at Discharge: Stable Rehab Potential (if transferring to Rehab): Good Recommended Labs or Other Treatments After Discharge: None Physician Certification: I certify the above information and transfer of Albin Issa is necessary for the continuing treatment of the diagnosis listed and that he requires Shelter Facility for less 30 days. Update Admission H&P: No change in H&P PHYSICIAN SIGNATURE: Sd Moreno PA-C - 05/24/2021 General Orthopedic Discharge Instructions The following instructions have been prepared to help you when you leave the hospital. These guidelines are for the post-surgery period. Activity: Ease into normal activity as tolerated. Medications: see medication instructions. Please be sure to read and understand the information provided by your pharmacy. Ask your Pharmacist if any questions. Wound Care and Hygiene: -Wash hands before touching or changing dressings -Do Not touch incision -Leave dressing until post-op day 2 and reapply dressing if wound is draining. If wound is dry, you may leave dressing off -May shower starting post-op day 3 Call Your Doctor for: -Excessive bleeding/swelling of incision -Fever with temperature above 100 F Anesthesia Precautions: -Do Not operate any vehicle (automobile, bicycle, motorcycle) or power tools for 24 hours -Do Not drink alcoholic beverages for 24 hours -As precaution to prevent post-operative nausea and vomiting, start your diet with liquids, then progress to light foods. If tolerated, resume normal diet. Additional Instructions: -Weight bearing status: Non weightbearing with left arm. No lifting, pushing, or pulling. -Ok for shoulder, elbow, wrist, and finger range of motion as tolerated -Sling as needed for comfort -Ice/elevate extremity -Continue PT -Blood clot prevention: Take as prescribed by primary team. -Pain control: Take as prescribed by primary team. Alternate Tylenol and Ibuprofen every 4 hours. For example, take Tylenol at 7am and Ibuprofen at 11am. Then take Tylenol at 3pm and Ibuprofen at 7pm. Take Oxycodone for breakthrough pain only. Contact your surgeon's office (Dr. Biswas), to set up an appointment in 2 weeks, or if you have any problems or questions. documented in this encounter [facility] Work Phone: Fall risk assessment 07-03-2017 Note Date & Type Note Facility Fall risk assessment 06-14-2017 Note Date & Type Note Facility Fall risk assessment 05-15-2017 Note Date & Type Note Facility Fall risk assessment 05-01-2017 Note Date & Type Note Facility Evaluation note Note Date & Type Note Facility documented in this encounter [facility] Work Phone: Evaluation note Note Date & Type Note Facility documented in this encounter [facility] Summary Purpose Family History No Family History Records FoundNo Family History Records FoundNo Family History Records FoundNo Family History Records FoundNo Family History Records FoundNo Family History Records Found Advance Directives Documents on File Type Date Recorded Patient Travel Specialist Expl anation ACP-Advance Directive ACP-Power of Director Of Analytics Latest Code Status on File Code Status Date Activated Date Inactivated Comments Full Code 05/24/2021 1:55 AM Full Code 05/07/2019 10:28 AM 05/07/2019 5:36 PM Full Code 04/23/2019 8:12 PM 04/25/2019 5:39 PM Full Code 04/23/2019 12:30 PM 04/23/2019 8:01 PM Full Code 03/05/2019 9:23 AM 03/05/2019 4:40 PM Latest Code Status on File Code Status Date Activated Date Inactivated Comments Full Code 11/21/2023 3:07 PM Additional Source Comments (unrecognized sect ion and content) No Status Records FoundNo Status Records FoundNo Status Records FoundNo Status Records FoundNo Status Records FoundNo Status Records Found INFORMATION SOURCE (unrecogn ized section and content) DATE CREATED AUTHOR AUTHOR'S ORGANIZ ATION 06/02/2021 [email or web address] [employer] DATE CREATED AUTHOR AUTHOR'S ORGANIZ ATION 06/11/2021 [email or web address] [facility] DATE CREATED AUTHOR AUTHOR'S ORGANIZ ATION 03/09/2022 [facility] ([place]) DATE CREATED AUTHOR AUTHOR'S ORGANIZ ATION 02/12/2023 [email or web address] [facility] DATE CREATED AUTHOR AUTHOR'S ORGANIZ ATION 09/13/2023 [facility] Ordered Prescriptions (unrec ognized section and content) Scheduled Active and Recently Administ ered Medications (unrecognized section and content) PRN Medication Order 05/30/2021 05/31/2021 06/01/2021 0.9 % sodium chloride infusion 25 mL, Intravenous, at 100 mL/hr, PRN, If patient receiving piggyback infusions without ordered maintenance IV fluids or with frequent/long duration piggyback infusions, Starting on Sat05/24/21 at 0138, Administer at the same rate as the piggyback being infused. bisacodyl (DULCOLAX) suppository 10 mg 10 mg, Rectal, DAILY PRN, Constipation, Starting on Sat05/28/21 at 1254 0922 (Not Given - Provider: Haylee Abdullahi RN - Reason: Other) LORazepam (ATIVAN) tablet 0.5 mg 0.5 mg, Oral, NIGHTLY PRN, Anxiety, as needed for sleep - substituted for home Temazepam, Starting on Sat05/24/21 at 2342, Substituted for Temazepam (RESTORIL). ondansetron (ZOFRAN) injection 4 mg 4 mg, Intravenous, EVERY 6 HOURS PRN, Nausea, Vomiting, Starting on Sat05/24/21 at 0152 oxyCODONE (ROXICODONE) immediate release tablet 10 mg(Linked Group 1) 10 mg, Oral, EVERY 4 HOURS PRN, Pain Severe (7-10), Starting on Sat05/24/21 at 0151 oxyCODONE (ROXICODONE) immediate release tablet 5 mg(Linked Group 1) 5 mg, Oral, EVERY 4 HOURS PRN, Pain Moderate (4-6), Starting on Sat05/24/21 at 0151 sodium chloride flush 0.9 % injection 5-40 mL 5-40 mL, Intravenous, PRN, Line Care, After every IV line use, Starting on Sat05/24/21 at 0138, For Line Patency: Peripheral IV = 5 mL; Midline or Central Line = 10 mL/lumen. If following IV push medication, administer flush at same rate as the IV push. Flush volume is determined by type of infusion therapy being given. For non-viscous solutions use: Peripheral IV = 5 mL Midline or Central Line = 10 mL/lumen For viscous solutions (i.e. blood components, parenteral nutrition, contrast media, or after obtaining blood sample) use: Peripheral IV = 10 mL Midline or Central Line = 20 mL/lumen Linked Groups Order Group 1: oxyCODONE (ROXICODONE) immediate release tablet 5 mgJump to med 5 mg, Oral, EVERY 4 HOURS PRN, Pain Moderate (4-6), Starting on Sat05/24/21 at 0151 Or oxyCODONE (ROXICODONE) immediate release tablet 10 mgJump to med 10 mg, Oral, EVERY 4 HOURS PRN, Pain Severe (7-10), Starting on Sat05/24/21 at 0151 Reason for Visit (unrecogniz ed section and content) Specialty Diagnoses / Procedures Referred By Bernabe t Referred To Contact Diagnoses Venous (peripheral) insufficiency Venous (peripheral) insufficiency [I87.2] Procedures [place] INJECTION PROC,EXTREMITY,VENOGRAPHY VENOGRAM Chapin Ramirez MD [address] [place] [id number] [facility] [address] [place] [address] Referral ID Status Reason Start Date Expiration Date Visits Re quested Visits Authorized [id number] 1 1 Care Teams (unrecognized sec tion and content) Full Stack Web Developer Relationship Specialty Start Date End Date Speedy Pink MD [address] [facility] [address] [address] [place], [place] [id number] PCP - General Family Medicine 11/21/23 Delilah Foster MD [address] [facility] [address] [place], [place] [id number] Cardiovascular Disease 09/11/23 FOR RECORDS PERTAINING TO PATIENTS WHO ARE OR HAVE BEEN ENROLLED IN A CHEMICAL DEPENDENCY/SUBSTANCEABUSE PROGRAM, SOME INFORMATION MAY BE OMITTED. This clinical summary was aggregated from multiple sources. Caution should be exercised in using it in the provision of clinical care. This summary normalizes information from multiple sources, and as a consequence, information in this document may materially change the coding, format and clinical context of patient data. In addition, data may be omitted in some cases. CLINICAL DECISIONS SHOULD BE BASED ON THE PRIMARY CLINICAL RECORDS. [employer] provides no warranty or guarantee of the accuracy or completeness of information in this document.
[2023-11-28 18:05] LABS: Anion Gap 6 (5-15); BUN 15 mg/dL (7-18); BUN/Creat Ratio 11.7 RATIO (10-20); Calcium,Total 8.9 mg/dL (8.5-10.1); Chloride 109 mmol/L (98-107); Cholesterol 96 mg/dL (200); Creatinine, Serum 1.28 mg/dL (0.70-1.30); EST Glomerular Filtration Rate 59 mL/min (>60); Est Glom Filt Rate - Afr Amer 72 mL/min (>60); Glucose 125 mg/dL (74-106); High Density Lipoprotein 32 mg/dL; Potassium 4.1 mmol/L (3.5-5.1); Sodium Level 141 mmol/L (136-145); Triglycerides 91 mg/dL; Very Low Density Lipoprotein 18 mg/dL (5-40)
== END | disposition home or self-care (01) ==
LOC: MTLAB 15:02
PROVIDERS: PCP Family Medicine; Referring Provider Family Medicine; Visit Provider Family Medicine
DX: Z00.00 Encounter for general adult medical examination without abnormal findings (principal); I10 Essential (primary) hypertension
CPT/HCPCS: 36415; 80048; 80061

== ENCOUNTER → 2024-01-16 | Outpatient (CLI) | payer MEDICARE, SELFPAY ==
[2024-01-16 16:45] LABS: PSA,Total - Annual Screen 0.33 ng/mL (0.00-4.00)
--- OUTSIDE RECORDS SUMMARY | 2024-01-16 20:58 | XMS RPT_ITS | CCD ---
Author Name Unknown Address [address] [place] [address] Organization [facility] Care Team Providers Care Donor Relations Manager Name Role Phone JUANCHO Deng, Peg Demarco Unavailable Unavailable Speedy Boswell MD Primary Care Provider Daysi DORANTES, Arlene Gee Unavailable Alex CHAIREZ, Rizwana Vela Unavailable Unavailable Alex CHAIREZ, Rizwana Vela Unavailable Unavailable JUANCHO Deng, Peg Demarco Unavailable Unavailable JUANCHO Deng, Peg Demarco Unavailable Unavailable Speedy Mtz MD Unavailable Cary George MD Unavailable Siders, Chey C Unavailable Unavailable SidersChey C Unavailable Unavailable Lowell Otero MD Unavailable JUANCHO Deng, Peg Demarco Unavailable Unavailable KEL NIELSEN Attending Unavailable SPEEDY BOSWELL Primary Care Unavailable Speedy Boswell MD Primary Care Provider Delilah Villagomez MD Unavailable Speedy Boswell MD Primary Care Provider DAVID RAMIREZ Attending Unavailable DELILAH VILLAGOMEZ Referring Unavailable SPEEDY BOSWELL Primary Care Unavailable CARMEN CHAVEZ Attending [facility] Referring Un available SPEEDY BOSWELL Primary Care Unavailable SPEEDY BOSWELL Primary Care Unavailable DAVID RAMIREZ Attending Unavailable DAVID RAMIREZ Admitting Unavailable DAVID RAMIREZ Attending Unavailable DAVID RAMIREZ Admitting Unavailable SPEEDY BOSWELL Primary Care Unavailable Medications Current Medications Medication Drug Class(es) Dates Sig (Normalized) Sig (Original) betamethasone 3 mg/ml / betamethasone acetate 3 mg/ml injectable suspension (1 source) Corticosteroid Start: 08-26-2023 betamethasone acetate-betamethaso ne sodium phosphate (Celestone) injection 3 mg bisacodyl 10 mg rectal suppository (3 sources) Stimulant Laxative Start: 05-30-2021 bisacodyl (DULCOLAX) suppository 20 mg Completed/Discontinued Medications Medication Drug Class(es) Dates Sig (Normalized) Sig (Original) acetaminophen 325 mg oral tablet (3 sources) Start: 01-06-2024 End: 01-07-2024 take 1 tablet by mouth every six hours as needed Acetaminophen (TYLENOL) tablet 325 mg Problems Active Problems Problem Classification Problem Date Documented Date Episodic/Chronic Acute 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 ([address]) [address] elevation (STEMI) 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 involving other coronary artery of anterior wall; Translations: [Acute 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 of other anterior wall, subsequent episode of care] Onset: 02-16-2011 Resolved: 06-01-2016 02-16-2011 Chronic Cardiac dysrhythmias (2 sources) Palpitations; Translations: [Palpitations] Onset: 11-21-2023 Episodic Complication of device; implant or graft (20 sources) Arteriosclerosis of coronary artery bypass graft; Translations: [Atherosclerosis of coronary artery bypass graft(s) without angina pectoris] Onset: 02-16-2011 Resolved: 06-01-2016 02-16-2011 Chronic Complication of device; implant or graft (3 sources) Disorder of cardiac pacemaker electrode; Translations: [Breakdown (mechanical) of cardiac electrode, initial encounter] Onset: 11-22-2023 01-07-2024 Episodic Conduction disorders (5 sources) History of combination internal cardiac defibrillator and pacemaker; Translations: [Encounter for adjustment and management of automatic implantable cardiac defibrillator] Onset: 09-11-2023 11-21-2023 Chronic Congestive heart failure; nonhypertensive (3 sources) Chronic systolic heart failure; Translations: [Chronic systolic (congestive) heart failure] Onset: 05-29-2021 Chronic Coronary atherosclerosis and other heart disease (20 sources) Coronary atherosclerosis; Translations: [Atherosclerotic heart disease of robinson coronary artery without angina pectoris] Onset: 02-16-2011 [...] elsewhere classified] Onset: 05-15-2017 05-28-2017 Chronic Other diseases of veins and lymphatics (2 sources) Venous insufficiency (chronic) (peripheral); Translations: [Venous insufficiency (chronic) (peripheral)] Onset: 11-21-2023 Episodic Other nutritional; endocrine; and metabolic disorders (16 [...] (1 source) Long-term drug therapy; Translations: [Other mcfp (current) drug therapy] Onset: 02-16-2011 02-16-2011 Unclassified [...] (15 sources) Long-term drug therapy; Translations: [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] Onset: 02-16-2011 02-16-2011 Episodic [...] Time Vital Sign Value Performing Clinician Facility 01-07-2024 06:15-0500 Body temperature 97.11 [degF] David Ramirez MD Work Phone: [facility] 01-07-2024 06:15-0500 Diastolic blood pressure 63 mm[Hg] David Ramirez MD Work Phone: [facility] 01-07-2024 06:15-0500 Heart rate 70 /min David Ramirez MD Work Phone: [facility] 01-07-2024 06:15-0500 Respiratory rate 18 /min David Ramirez MD Work Phone: [facility] 01-07-2024 06:15-0500 SaO2% (BldA) [Mass fraction] 93 % David Ramirez MD Work Phone: [facility] 01-07-2024 06:15-0500 Systolic blood pressure 109 mm[Hg] David Ramirez MD Work Phone: [facility] 01-06-2024 07:48-0500 Body height 170.2 cm David Ramirez MD Work Phone: [facility] 01-06-2024 07:48-0500 Body mass index (BMI) [Ratio] 46.05 kg/m2 David Ramirez MD Work Phone: [facility] 01-06-2024 07:48-0500 Body weight 133.36 kg David Ramirez MD Work Phone: [facility] 08-26-2023 15:31-0400 Body height 180.3 cm Kel Nielsen MD Work Phone: [facility] 08-26-2023 15:31-0400 Body mass index (BMI) [Ratio] 38.77 kg/m2 Kel Nielsen MD Work Phone: [facility] 08-26-2023 15:31-0400 Body weight 126.1 kg Kel Nielsen MD Work Phone: [facility] 06-01-2021 00:25-0400 Body temperature 97.81 [degF] Roni Figueroa MD Work Phone: [facility] Work Phone: 06-01-2021 00:25-0400 Diastolic blood pressure 93 mm[Hg] Roni Figueroa MD Work Phone: [facility] Work Phone: 06-01-2021 00:25-0400 Heart rate 82 /min Roni Figueroa MD Work Phone: [facility] Work Phone: 06-01-2021 00:25-0400 Respiratory rate 17 /min Roni Figueroa MD Work Phone: [facility] Work Phone: 06-01-2021 00:25-0400 SaO2% (BldA) [Mass fraction] 98 % Roni Figueroa MD Work Phone: [facility] Work Phone: 06-01-2021 00:25-0400 Systolic blood pressure 155 mm[Hg] Roni Figueroa MD Work Phone: [facility] Work Phone: 05-24-2021 00:05-0400 Body height 180.3 cm Roni Figueroa MD Work Phone: [facility] Work Phone: 05-24-2021 00:05-0400 Body mass index (BMI) [Ratio] 38.77 kg/m2 Rnoi Figueroa MD Work Phone: [facility] Work Phone: 05-24-2021 00:05-0400 Body weight 126.1 kg Roni Figueroa MD Work Phone: [facility] Work Phone: 07-03-2017 08:47-0400 Body height 181.61 cm Lowell Otero MD [facility] Work Phone: 07-03-2017 08:47-0400 Body mass index (BMI) [Ratio] 44.75 kg/m2 Lowell Otero MD [facility] Work Phone: 07-03-2017 08:47-0400 Body surface area Derived from formula 2.61 m2 Lowell Otero MD [facility] Work Phone: 07-03-2017 08:47-0400 Body temperature 96.9 [degF] Lowell Otero MD [facility] Work Phone: 07-03-2017 08:47-0400 Body weight 147.6 kg Lowell Otero MD [facility] Work Phone: 07-03-2017 08:47-0400 Diastolic blood pressure 81 mm[Hg] Lowell Otero MD [facility] Work Phone: 07-03-2017 08:47-0400 Heart rate 64 /min Lowell Otero MD [facility] Work Phone: 07-03-2017 08:47-0400 Respiratory rate 18 /min Lowell Otero MD [facility] Work Phone: 07-03-2017 08:47-0400 Systolic blood pressure 129 mm[Hg] Lowell Otero MD [facility] Work Phone: 07-03-2017 08:47-0400 Weight 147.6 kg Peg Deng RN [facility] Work Phone: 06-19-2017 10:56-0400 Body height 181.61 cm Cary George MD Work Phone: [facility] Work Phone: 06-19-2017 10:56-0400 Body mass index (BMI) [Ratio] 44 kg/m2 Cary George MD Work Phone: [facility] Work Phone: 06-19-2017 10:56-0400 Body temperature 97.2 [degF] Cary George MD Work Phone: [facility] Work Phone: 06-19-2017 10:56-0400 Body weight 145.15 kg Cary George MD Work Phone: [facility] [employer] Work Phone: 06-19-2017 10:56-0400 Diastolic blood pressure 76 mm[Hg] Cary George MD Work Phone: [facility] [employer] Work Phone: 06-19-2017 10:56-0400 Heart rate 75 /min Cary George MD Work Phone: [facility] [employer] Work Phone: 06-19-2017 10:56-0400 Respiratory rate 18 /min Cary George MD Work Phone: [facility] [employer] Work Phone: 06-19-2017 10:56-0400 Systolic blood pressure 106 mm[Hg] Cary George MD Work Phone: [facility] [employer] Work Phone: 06-14-2017 13:20-0400 Body height 181.61 cm JUANCHO [facility] Work Phone: 06-14-2017 13:20-0400 Body mass index (BMI) [Ratio] 44.91 kg/m2 JUANCHO [facility] Work Phone: 06-14-2017 13:20-0400 Body weight 148.15 kg JUANCHO [facility] Work Phone: 06-14-2017 13:20-0400 Diastolic blood pressure 64 mm[Hg] JUANCHO [facility] Work Phone: 06-14-2017 13:20-0400 Heart rate 66 /min JUANCHO [facility] Work Phone: 06-14-2017 13:20-0400 Systolic blood pressure 100 mm[Hg] JUANCHO [facility] Work Phone: 05-23-2017 12:15-0400 Body height 181.61 cm Rizwana [facility] Work Phone: 05-23-2017 12:15-0400 Body mass index (BMI) [Ratio] 43.98 kg/m2 Rizwana [facility] Work Phone: 05-23-2017 12:15-0400 Body temperature 97.8 [degF] Rizwana [facility] Work Phone: 05-23-2017 12:15-0400 Body weight 145.06 kg Rizwana Johnson LPN [facility] Work Phone: 05-23-2017 12:15-0400 Diastolic blood pressure 56 mm[Hg] Rizwana Johnson LPN [facility] Work Phone: 05-23-2017 12:15-0400 Heart rate 69 /min Rizwana Estr[facility] Work Phone: 05-23-2017 12:15-0400 Respiratory rate 20 /min Rizwana Estrada [facility] Work Phone: 05-23-2017 12:15-0400 SaO2% (BldA) [Mass fraction] 98 % Rizwana E[facility] Work Phone: 05-23-2017 12:15-0400 Systolic blood pressure 113 mm[Hg] Rizwana [facility] Work Phone: 05-15-2017 10:40-0400 Body surface area Derived from formula 2.[address] [facility] Work Phone: 05-01-2017 09:51-0400 Body mass index (BMI) [Ratio] 44.86 kg/m2 Arlene Signs [facility] Work Phone: 05-01-2017 09:51-0400 Body temperature 96.7 [degF] Arlene Signs [facility] Work Phone: 05-01-2017 09:51-0400 Body weight 147.96 kg Arlene Signs [facility] Work Phone: 05-01-2017 09:51-0400 Diastolic blood pressure 66 mm[Hg] Arlene Signs [facility] Work Phone: 05-01-2017 09:51-0400 Heart rate 61 /min Arlene Signs [facility] Work Phone: 05-01-2017 09:51-0400 SaO2% (BldA) [Mass fraction] 100 % Arlene Signs [facility] Work Phone: 05-01-2017 09:51-0400 Systolic blood pressure 110 mm[Hg] Arlene Signs [facility] Work Phone: 04-03-2017 10:29-0400 Body height 181.61 cm Arlene Signs [facility] Work Phone: 04-03-2017 10:29-0400 Body mass index (BMI) [Ratio] 44.39 kg/m2 Arlene Signs [facility] Work Phone: 04-03-2017 10:29-0400 Body temperature 97.2 [degF] Arlene Signs [facility] Work Phone: 04-03-2017 10:29-0400 Body weight 146.42 kg Arlene Tavarez MD [facility] Work Phone: 04-03-2017 10:29-0400 Diastolic blood pressure 61 mm[Hg] Arlene Tavarez MD [facility] Work Phone: 04-03-2017 10:29-0400 Heart rate 64 /min Arlene Tavarez MD [facility] Work Phone: 04-03-2017 10:29-0400 Respiratory rate 22 /min Arlene Tavarez MD [facility] Work Phone: 04-03-2017 10:29-0400 SaO2% (BldA) [Mass fraction] 97 % Arlene Tavarez MD [facility] Work Phone: 04-03-2017 10:29-0400 Systolic blood pressure 96 mm[Hg] Arlene Tavarez MD [facility] Work Phone: 12-14-2016 13:36-0500 Body surface area Derived from formula 2.61 m2 Arlene Tavarez MD [facility] Work Phone: Encounters Encounter Date Encounter Type Care Provider Facility Start: 01-06-2024 End: 01-07-2024 ambulatory SPEEDY BOSWELL Facility:[facility] Start: 01-06-2024 End: 01-07-2024 Subsequent hospital visit by physician David Ramirez MD Work Phone: Cardiology Invasive Prep and Recovery Procedures Date Procedure Procedure Detail Performing Clinician Start: 01-07-2024 DEVICE EVALUATION Other Other Start: 01-07-2024 EXTRA LAVENDER TOP David Ramirez MD Work Phone: Start: 01-07-2024 EXTRA TUBES David Ramirez MD Work Phone: Start: 01-07-2024 Assay of magnesium Rosio Douglass MANUFACTURING TEST TECHNICIAN-E COMMERCE ARCHITECT Work Phone: Start: 01-06-2024 Radiologic exam chest 2 views Manuel Redd MD Work Phone: Start: 01-06-2024 Insj 1 transvns eltrd perm pacemaker/impltbl dfb David Ramirez MD Work Phone: Start: 01-06-2024 CBC AND ELECTRONIC DIFF Wilda A Donova n MANUFACTURING TEST TECHNICIAN-E COMMERCE ARCHITECT Work Phone: Start: 01-06-2024 Complete blood count with white cell differential, automated Wilda A Ashish MANUFACTURING TEST TECHNICIAN-E COMMERCE ARCHITECT Work Phone: Start: 01-06-2024 Creatinine blood Wilda A Ashish MANUFACTURING TEST TECHNICIAN-E COMMERCE ARCHITECT Work Phone: Start: 01-06-2024 Ecg routine ecg w/least 12 lds w/i&r Wilda A Ashish MANUFACTURING TEST TECHNICIAN-E COMMERCE ARCHITECT Work Phone: Start: 11-21-2023 DEVICE EVALUATION Other Other Start: 05-31-2021 COVID-19 Keira Kam MANUFACTURING TEST TECHNICIAN - COURT COLLECTIONS OFFICER Work Phone: Start: 05-29-2021 Dup-scan xtr veins complete bilateral study Keira Kam MANUFACTURING TEST TECHNICIAN - COURT COLLECTIONS OFFICER Work Phone: Start: 05-25-2021 Basic metabolic panel calcium total Sd Moreno PA-C Work Phone: Start: 05-24-2021 OPERATIVE REPORT 3m Scanning Start: 05-24-2021 Radex humerus minimum 2 views Sd BRENNAN-C Work Phone: Start: 05-24-2021 Radex elbow complete [...] Prgrmg eval implantable in prsn dual lead lawb Speedy Mtz MD Start: 07-03-2017 End: 07-03-2017 [...] Up Appt Other Lowell Otero MD Start: 05-15-2017 End: 05-15-2017 Alcoholism [...] PA-C Work Phone: Start: 06-01-2016 End: 06-01-2016 MMM Divina Giles PA-C Work Phone: Start: 06-01-2016 End: 06-22-2016 Nuclear stress test -Lexiscan Divina Giles PA-C Work Phone: Start: 06-01-2016 End: 08-22-2016 Pacer Clinic Divina Giles PA-C Work Phone: Start: 06-01-2016 End: 06-01-2016 PFM Divina Giles PA-C Work Phone: Start: 06-01-2016 End: 06-01-2016 Prgrmg eval implantable in prsn dual lead dfb Divina Giles PA-C Work Phone: Start: 06-01-2016 End: 08-22-2016 Follow Up Appt 3 months Divina ortiz PA-C Work Phone: Start: 06-01-2016 End: 06-01-2016 Follow Up Appt 6 months Divina ortiz PA-C Work Phone: Start: 06-01-2016 End: 06-01-2016 MMM Divina Giles PA-C Work Phone: Start: 06-01-2016 End: 06-22-2016 Nuclear stress test -[facility] Divina Giles PA-C Work Phone: Start: 06-01-2016 End: 08-22-2016 Pacer Clinic Divina Giles PA-C Work Phone: Start: 06-01-2016 End: 06-01-2016 [facility] Divina Giles PA-C Work Phone: Start: [...] Start: 08-17-2015 End: 05-18-2016 Pacer Clinic Divina Giels PA-C Work Phone: Start: 08-17-2015 End: 08-17-2015 [...] PFM Divina Giles PA-C Work Phone: Start: 05-12-2015 [...] 07-20-2015 Follow Up Appt 3 months Speedy tMz MD Start: 05-04-2015 End: 07-20-2015 MMM Speedy [...] Speedy Mtz MD Start: 02-05-2014 End: 01-10-2015 Prgrmg [...] Speedy Mtz MD Start: 11-06-2013 End: 11-06-2013 BASIM Mtz MD Start: 11-06-2013 End: 11-06-2013 Prgrmg [...] 11-01-2013 End: 01-10-2015 *Hepatic Function Panel Divina ortiz PA-C Work Phone: Start: 11-01-2013 End: 01-10-2015 [...] PA-C Work Phone: Start: 07-01-2013 End: 07-24-2013 BECKY Giles PA-C Work Phone: Start: 07-01-2013 End: 07-24-2013 Follow Up Appt 1 month Divina mcgee PA-C Work Phone: Start: 07-01-2013 End: 07-24-2013 MMNilam Giles PA-C Work Phone: Start: 05-05-2013 End: 06-03-2013 Follow Up Appt 3 months Speedy Mtz MD Start: 05-05-2013 End: 06-03-2013 Pacer Clinic Speedy Mtz MD Start: 05-05-2013 End: 05-05-2013 Prgrmg eval implantable in prsn dual lead dfb Speedy Mtz MD Start: 05-05-2013 End: 06-03-2013 Follow Up Appt 3 months Speedy Mtz MD Start: 05-05-2013 End: 06-03-2013 Pacer Clinic Speedy tMz MD Start: 05-05-2013 End: 05-05-2013 Prgrmg eval [...] Khris Spencer MD Start: 04-17-2012 End: 04-17-2013 Grinder Set Up Operator Universal Khris Spencer MD Start: 04-17-2012 End: 04-17-2012 [...] Up Appt Other Khris Spencer MD Start: 02-16-2011 Implantation of automatic cardiac defibrillator IMPLANTATION OF DEFIBRILLATOR, HX OF Arlene Tavarez MD Plan of Treatment Date Care Activity Detail Author Start: 12-20-2033 Tetanus vaccination TETANUS [facility] Start: 01-07-2025 Potassium [Moles/volume] in Serum or Plasma POTASSIUM [facility] Start: 11-21-2024 Potassium [Moles/volume] in Serum or Plasma POTASSIUM [facility] Start: 05-27-2024 DTaP/Tdap/Td vaccine (3 - Td or Tdap) DTaP/Tdap/Td vaccine (3 - Td or Tdap) [facility] Work Phone: Start: 05-27-2024 DTaP/Tdap/Td Vaccines (3 - Td or Tdap) DTaP/Tdap/Td Vaccines (3 - Td or Tdap) [facility] Start: 05-27-2024 Tetanus vaccination TETANUS [facility] Start: 12-04-2023 End: 12-04-2023 Admission to same day surgery center 12/04/2023 9:45 AM EST - 12/04/2023 12:15 PM EST Surgery Cardiovascular Imaging Lab [facility] [address] [place] [id number] Justin Pittman MD [address] [place] [phone] ICD Generator Changeout Cardiovascular Imaging Lab [facility] Immunizations Immunization Date Immunization Notes Care Provider Fa cility 09-04-2022 influenza virus vacc ine, unspecified formulation Kel Nielsen MD Work Phone: [facility] Payers Date Payer Category Payer Medicare [id number] 2023 Medicare [id number] 2023 Medicare [id number] 2022 Medicare [id number] 2021 Medicare BCBS MEDICARE AN THEM MEDIBLUE ESSENTIAL/PLUS [id number] 2021-Present [address] [address] [place] [address] [id number] 2020 Medicare [id number] 2020 Unknown [id number] 1955 Unknown [id number] 1955 Unknown [id number] 1955 Unknown [id number] 1955 Unknown [id number] 1955 Unknown [id number] Social History Date Type Detail Facility Start: 05-25-2021 End: 02-11-2023 Tobacco smoking status [facility] Former smoker [facility] Work Phone: End: 12-02-1980 History of tobacco use Current smoker [facility] End: 12-02-1980 History of tobacco use Cigarette Smoker [facility] Start: 03-18-2015 End: 05-25-2021 Cigarettes smoked current (pack per day) - Reported [facility] Work Phone: Start: 05-25-2021 End: 02-11-2023 Tobacco use and exposure Current user [facility] History of tobacco use Chews Tobacco [facility] Start: 05-25-2021 End: 08-26-2023 Alcohol intake Current drinker of alcohol (finding) [facility] Work Phone: Start: 05-04-2019 Alcohol Comment OCCAS BEER [facility] Work Phone: Start: 1955 Sex Assigned At Not on file [facility] Work Phone: Start: 08-16-2023 End: 08-26-2023 Exposure to SARS-CoV-2 (event) Not sure [facility] Start: 03-18-2015 End: 08-26-2023 Tobacco use panel [facility] Start: 1955 Sex Assigned At Male [facility] Start: 02-04-2023 Gender identity Identifies as male gender (finding) [facility] Start: 02-04-2023 Sexual orientation Heterosexual (fin ding) [facility] Medical Equipment Procedure Code Equipment Code Equipment Origin al Text Equipment Identifier Dates Defibrillator Cr d [id number] Fortify Asr Antonioylesmiley 2 - [id number] Start: 01-06-2024 Lead Pacing 52cm 6fr Endocardium Tendril Sts Bipolar Active - [id number] Start: 01-06-2024 Clinical Notes 05-01-2017 to 01-07-2024 SHEILA Hilton - 01/07/2024 8:06 AM ESTDischarge Instr - ActivityDischarge Instr - DietDischarge Instr - NotifyDischarge Instr - Wound CareSHEILA Hilton - 01/06/2024 7:13 AM EST Note Date & Type Note Facility 01-07-2024 Hospital course Narrative Discharge Summary Name: Albin Issa Age: 68 y.o. Birthday: 1955 Admit Date: 01/06/2024 7:01 AM Discharge Date: 01/07/2024 Discharge Time: 0800 Discharge Unit: [facility] Admission Information Admitting Physician: David Ramirez MD Discharge Information Discharge Provider: Rosio Douglass CNP Problem List Active Hospital Problems Diagnosis Pacemaker lead malfunction Resolved Hospital Problems No resolved problems to display. Brief Summary of Hospital Course for Discharge Summary: Albin Issa is a 68 y.o. male with ICM s/p [facility] DC ICD, CAD s/p [place] 2004, s/p CABG 2004, s/p right AKA amputation, HLD. He was evaluated in EP clinic on 11/21/2023 for consultation. He reported occasional dyspnea on exertion. Upon device evaluation on 11/21/2023, it revealed atrial lead noise and battery at TOUCHER UP. On 11/21/2023, he underwent a venogram revealing the left axillary, brachiocephalic, inominate all patent to the SVC. He arrives today to proceed with ICD change out along with adding a RA lead and capping existing lead. On 01/06/2024, he underwent successful ICD change out with new RA lead placed and old capped. He was monitored overnight due to driving himself and receiving anesthesia and maintained stable vital signs. He was discharged in improved condition. Physical exam on day of discharge BP 109/63 (BP Location: Right arm, BP Position: Lying) Pulse 70 Temp 97.1 F (36.2 C) (Oral) Resp 18 Ht 1.702 m (5' 7 ) Wt 133.4 kg (294 lb) SpO2 93% BMI 46.05 kg/m Constitutional: patient is awake, alert and in no distress today with a pleasant affect. Chest: lungs clear to auscultation Device implant site: Dressing is intact and no significant hematoma is noted Cardiovascular: Normal carotid pulses, the JVP is not elevated, regular rate and rhythm; S1 normal, S2 normal, and there are no murmurs, rub or gallops appreciated Extremities: There are no cords or pain on palpation. Pedal edema is none Neurological: Patient is alert and oriented to person, place and time. Speech clear. Skin: No cyanosis. Nails show no clubbing. The patient denied chest pain, dyspnea, edema, lightheadedness, palpitations and site pain. Tolerated ambulation without difficulty. Telemetry: NSR Brief Summary of Procedures and Imaging for Discharge Summary: Pt is a 68M ICM s/p [employer] DC ICD, CAD s/p [place] 2004, s/p CABG 2004, s/p right AKA amputation, HLD. He was evaluated in EP clinic on 11/21/2023 for consultation. He reported occasional dyspnea on exertion. Upon device evaluation on 11/21/2023, it revealed atrial lead noise and battery at TOUCHER UP. He underwent successful placement of additional RA lead. Device generator exchanged. Excellent lead parameters. IV Vancomycin is utilized because: Physician/DIRECTOR HEDIS/PA or pharmacist documentation of increased MRSA rate, either facility-wide or operation-specific Documentation of continuous inpatient stay more than 24 hours prior to the principal procedure PLAN: 1) Resume medications, hold AC for 24 hours. 2) Wound care 3) CXR 4) Aquacel patch for 7 day. 5) Device follow up in 1-2 weeks Summary of last selected lab results and date obtained: Lab Results Component Value Date WBC 8.66 01/06/2024 HGB 13.8 01/06/2024 HCT 41.5 01/06/2024 PLATELET 220 01/06/2024 MCV 89.2 01/06/2024 Lab Results Component Value Date SODIUM 139 01/07/2024 POTASSIUM 4.2 01/07/2024 CHLORIDE 105 01/07/2024 CO2 25 01/07/2024 BUN 19 01/07/2024 CREATSERUM 1.24 01/07/2024 GLUCOSE 128 (H) 01/06/2024 Lab Results Component Value Date ALT Test requested but not received in labs 05/31/2005 AST Test requested but not received in labs 05/31/2005 ALKPHOS Test requested but not received in labs 05/31/2005 BILITOTAL Test requested but not received in labs 05/31/2005 BILIDIRECT Test requested but not received in labs 05/31/2005 Brief Summary of Labs for Discharge Summary: No discharge procedures on file. Current Outpatient Meds: Medication List for when you go home CONTINUE taking these medications Morning Afternoon Evening Bedtime As Needed aspirin 81 MG CHEW chewable tablet Chew 1 tablet daily. Last time this was given: 81 mg on January 06, 2024 10:29 PM atorvastatin 80 MG TABS TAKE 1 TABLET BY MOUTH AT BEDTIME FOR CHOLESTEROL Commonly known as: LIPITOR Last time this was given: 80 mg on January 06, 2024 10:17 PM carveDILOL 25 MG TABS TAKE 1 TABLET BY MOUTH TWICE DAILY FOR THE HEART Commonly known as: COREG Last time this was given: 25 mg on January 06, 2024 5:00 PM Clopidogrel 75 MG TABS TAKE 1 TABLET BY MOUTH ONCE DAILY FOR BLOOD CLOTS Commonly known as: PLAVIX docusate 100 MG CAPS Take 2 capsules by mouth. escitalopram 20 MG TABS Commonly known as: LEXAPRO furOSEmide 40 MG TABS TAKE 1 TABLET BY MOUTH TWICE DAILY FOR WATER RETENTION Commonly known as: LASIX Last time this was given: 40 mg on January 06, 2024 5:31 PM Gabapentin 300 MG CAPS Commonly known as: NEURONTIN Last time this was given: 300 mg on January 06, 2024 10:17 PM Isosorbide mononitrate 60 MG tab XL tablet XL TAKE 1 TABLET BY MOUTH TWICE DAILY FOR BLOOD PRESSURE Commonly known as: IMDUR Last time this was given: 60 mg on January 06, 2024 10:17 PM multivitamin CAPS Take 1 capsule by mouth daily. Pantoprazole [address] tablet DR Take 1 tablet by mouth daily. Commonly known as: PROTONIX Potassium Chloride ER 20 MEQ tab ER tablet Take 2 tablets by mouth daily. Ramipril 2.5 MG CAPS Take 1 capsule by mouth 2 times daily. Commonly known as: ALTACE temazepam 15 MG CAPS Take 1 capsule by mouth at bedtime. Commonly known as: RESTORIL Last time this was given: 15 mg on January 06, 2024 10:40 PM traZODone 50 MG TABS Take 1 tablet by mouth at bedtime. Commonly known as: DESYREL Last time this was given: 50 mg on January 06, 2024 10:18 PM Follow-up: No follow-up provider specified. documented in this encounter [facility] 01-07-2024 Hospital Discharg e instructions SHEILA Hilton - 01/07/2024 7:56 AM EST YOUR ACTIVITY RESTRICTIONS FOR THE NEXT FOUR WEEKS Avoid lifting any objects heavier than 10 pounds Avoid raising your device side arm above your shoulder. We encourage you to use the arm on the ICD implanted side as long as the movement is below shoulder level and within the lifting restrictions. Avoid activities that require pushing or pulling heavy objects Avoid vigorous exercise which would include the following: Washing windows or juarez Vacuuming Tennis and golf but you may practice putting Lifting weights Running, jogging, or aerobics Contact sports Snow shoveling Mowing the lawn Chopping wood It is ok to lift your arms up to wash your hair but you should not be raising your arm on a repetitive basis. You must wait six weeks post implant before resuming a full golf swing DRIVING RESTRICTIONS You are not allowed to drive for 48 hours after your surgery Patients who have had a syncopal episode (or passed out) have an additional restriction: They are not allowed to drive for three months after their last syncopal (passing out) episode. If you have questions regarding this restriction, please contact your physician s office, not the Device Clinic SHEILA Hilton - 01/07/2024 7:56 AM EST Diet: Cardiac 4gm NA Low sodium, low fat, low cholesterol, caffeine controlled. Sodium restricted to 4 grams. SHEILA Hilton - 01/07/2024 7:56 AM EST Images from the original note were not included. Call the Device Clinic if you have: A shock from the ICD. If you have more than one shock in 24 hours, call 911 Dizziness, lightheadedness, or you pass out A very fast heartbeat or a heartbeat greater than 125 beats per minute for longer than 5 minutes at rest. Unusual shortness of breath Other signs that concern you If you have any of these signs and need medical help right away, call 911. When you are nauseated, you may feel weak and sweaty and notice a lot of saliva in your mouth. Nausea often leads to vomiting. Most of the time you do not need to worry about nausea and vomiting, but they can be signs of other illnesses. The doctor has checked you carefully, but problems can develop later. If you notice any problems or new symptoms, get medical treatment right away. Follow-up care is a scherer part of your treatment and safety. Be sure to make and go to all appointments, and call your doctor if you are having problems. It's also a good idea to know your test results and keep a list of the medicines you take. How can you care for yourself at home? To prevent dehydration, drink plenty of fluids, enough so that your urine is light yellow or clear like water. Choose water and other caffeine-free clear liquids until you feel better. If you have kidney, heart, or liver disease and have to limit fluids, talk with your doctor before you increase the amount of fluids you drink. Rest in bed until you feel better. When you are able to eat, try clear soups, mild foods, and liquids until all symptoms are gone for 12 to 48 hours. Other good choices include dry toast, crackers, cooked cereal, and gelatin dessert, such as Jell-O. When should you call for help? Call 911 anytime you think you may need emergency care. For example, call if: You passed out (lost consciousness) Call your doctor now or seek immediate medical care if: You have symptoms of dehydration, such as: Dry eyes and a dry mouth Passing only a little dark urine Feeling thirstier than usual You have new or worsening belly pain You have a new or higher fever You vomit blood or what looks like coffee grounds Watch closely for changes in your health, and be sure to contact your doctor if: You have on going nausea and vomiting Your vomiting gets worse Your vomiting last longer than 2 days You are not getting better as expected Where can you learn more? Go to https://www.Work[employer].me.net/osum ychart. SHEILA Hilton - 01/07/2024 7:56 AM EST Your incision care The pacemaker may buldge slightly under the skin. This is normal and common right after surgery. This will lesson over the nxt few weeks. You may have bruising around the incision, especially if you take blood thinner medicines, called anticoagulants, such as aspirin or warfarin. Itching is a normal part of the healing process. Try not to rub or scratch the incision site. Keep your incision clean and dry. Your dressing is waterproof and can be worn in the shower. Your dressing can be left in place for up to seven (7) days. Dressing may need to be changed sooner, depending on the amount of fluid it absorbs. Dressing flexes with skin during body movement. documented in this encounter [facility] 01-06-2024 Note IMPRESSION: Limited evaluation. No acute pulmonary finding. Cardiomegaly. [facility] 01-06-2024 History and physical note Images from the original note were not included. Chief Complaint Dyspnea on exertion HPI Albin Issa is a 68 y.o. male with ICM s/p [employer] [place] ICD, CAD s/p [place] 2005, s/p CABG 2004, s/p right AKA amputation, HLD. He was evaluated in EP clinic on 11/21/2023 for consultation. He reported occasional dyspnea on exertion. Upon device evaluation on 11/21/2023, it revealed atrial lead noise and battery at [employer]. On 11/21/2023, he underwent a venogram revealing the left axillary, brachiocephalic, inominate all patent to the SVC. He arrives today to proceed with ICD change out along with adding a RA lead and capping existing lead. Patient Active Problem List Diagnosis Fractured atrial pacemaker lead wire No past medical history on file. No past surgical history on file. Medications Prior to Admission Medication Sig Dispense Refill Last Dose aspirin 81 MG Chew Tab chewable tablet Chew 1 tablet daily. atorvastatin 80 MG tablet TAKE 1 TABLET BY MOUTH AT BEDTIME FOR CHOLESTEROL carveDILOL 25 MG tablet TAKE 1 TABLET BY MOUTH TWICE DAILY FOR THE HEART Clopidogrel 75 MG tablet TAKE 1 TABLET BY MOUTH ONCE DAILY FOR BLOOD CLOTS docusate 100 MG capsule Take 2 capsules by mouth. escitalopram 20 MG tablet furOSEmide 40 MG tablet TAKE 1 TABLET BY MOUTH TWICE DAILY FOR WATER RETENTION Gabapentin 300 MG capsule Isosorbide mononitrate 60 MG Tab SR 24 HR tablet XL TAKE 1 TABLET BY MOUTH TWICE DAILY FOR BLOOD PRESSURE Multiple Vitamin (multivitamin) capsule Take 1 capsule by mouth daily. Pantoprazole [address] tablet DR Take 1 tablet by mouth daily. Potassium Chloride ER 20 MEQ Tab CR tablet Take 2 tablets by mouth daily. Ramipril 2.5 MG capsule Take 1 capsule by mouth 2 times daily. temazepam 15 MG capsule Take 1 capsule by mouth at bedtime. traZODone 50 MG tablet Take 1 tablet by mouth at bedtime. No Known Allergies Social History Socioeconomic History Marital status: No family history on file. PCP Speedy COCHRAN MD: James Anticoagulation: none Previous antiarrythmic medications: none Prior Cardiac testing: STRESS TEST (OUTSIDE) (Final) 09/24/2023 4. Area of apical infarct. No reversible ischemia. 5. The gated Cardiolite study reports an LVEF of 46% ECHOCARDIOGRAM (OUTSIDE) 09/24/2023 DEVICE EVALUATION 11/21/2023 Full evaluation of the device shows that RA and RV capture and sensing thresholds and impedance measurements are appropriate. AP 41%. LIFESTYLE COORDINATOR 7.4%. Device is programmed DDD at 60 bpm. Since last evaluation 09/10/2023, counters reveal no arrhythmia events. Since 11/10/2023, there have been 48 atrial noise events noted. Patient explains that this has been a current issue and due to battery status at [employer], patient is here at [facility] for evaluation of new device and atrial lead extraction and replacement. Isometrics completed, and able to reproduce noise on the atrial lead. The battery status at [employer] with voltage of 2.45V (JESSICA is 2.45V). Changes made to the device today: None. All findings given to Dr Ramirez and EP fellow. Patient follows at [facility]. Addendum: per order of Dr Ramirez, patient lower rate limit decreased to 50 bpm. Review of System Constitutional: Negative for fever, weight loss, weight gain and malaise/fatigue. Skin: Negative. HEENT: Negative. Cardiovascular: +dyspnea on exertion, Negative for leg swelling. Negative for palpitations, chest pain, orthopnea, claudication, edema and PND. Negative for lightheadedness or syncope. Respiratory: Negative for cough. Is not experiencing shortness of breath currently. Gastrointestinal: Negative for abdominal pain, nausea, vomiting, diarrhea, melena, and constipation. Endocrine: Negative for polyuria, polydipsia, heat or cold intolerance. Genitourinary: Negative for frequency or burning with urination. Neurological: Negative for dizziness and headaches. Psychiatric: Negative for depression, nervous/anxious and substance abuse. Telemetry/EKG: NSR BP 115/63 (BP Location: Right arm, BP Position: Lying) Pulse 64 Temp 98.8 F (37.1 C) (Oral) Resp 18 Ht 1.702 m (5' 7 ) Wt 133.4 kg (294 lb) SpO2 97% BMI 46.05 kg/m Body mass index is 46.05 kg/m . Physical Exam General appearance - alert, LOC x 3, well appearing, and in no distress Neck - supple, no significant adenopathy, carotids upstroke normal bilaterally without bruits. Chest - lungs clear to auscultation Heart - regular rate and rhythm, S1 and S2 normal, no murmurs, clicks, gallops or rubs, normal bilateral carotid upstroke without bruits, no JVD Abdomen - soft, nontender, nondistended, no masses or organomegaly, bowel sounds present x 4 quadrants. Extremities - peripheral pulses normal, no pedal edema, no clubbing or cyanosis Skin - normal coloration and turgor, no rashes, no suspicious skin lesions noted Lab Results Component Value Date SODIUM 138 11/21/2023 POTASSIUM 3.9 11/21/2023 CHLORIDE 106 11/21/2023 CO2 20 (L) 11/21/2023 BUN 22 11/21/2023 CREATSERUM 1.39 (H) 11/21/2023 GLUCOSE 103 (H) 11/21/2023 Lab Results Component Value Date WBC 6.0 07/02/2005 HGB 12.5 (L) 07/02/2005 HCT 36.4 (L) 07/02/2005 PLATELET 294 07/02/2005 MCV 86.6 07/02/2005 INR Date Value Ref Range Status 06/04/2005 1.0 0.9 - 1.1 Final 06/04/2005 Specimen not received in laboratory. Final 06/03/2005 Test requested but not received in labs Final Assessment and Plan Atrial Lead Noise -Here for ICD change out with addition of RA lead and capping of existing lead. -Arrived in [facility] since 1899 -OK to proceed pending lab results Associated attestation - David Ramirez MD - 01/06/2024 12:26 PM EST Patient EP plan progressing well. I discussed plan with patient and answered questions. We discussed the procedure, alternatives and risks and the patient wishes to proceed in this direction. Physical Exam: Constitutional: Alert and oriented x 3 Eyes: Extraocular motions are normal. Musculoskeletal: No edema. Neurological: Nonfocal Skin: Skin is warm and dry. Psychiatric: Affect normal. I have independently seen and examined the patient and agree with the history, physicial, assessment and plan of the certified nurse practitioner as addended by me. David Ramirez MD01/06/2024 [facility] 01-06-2024 History and physical note Images from the original note were not included. Chief Complaint Dyspnea on exertion HPI Albin Issa is a 68 y.o. male with ICM s/p [employer] [place] ICD, CAD s/p [place] 2004, s/p CABG 2004, s/p right AKA amputation, HLD. He was evaluated in EP clinic on 11/21/2023 for consultation. He reported occasional dyspnea on exertion. Upon device evaluation on 11/21/2023, it revealed atrial lead noise and battery at [employer]. On 11/21/2023, he underwent a venogram revealing the left axillary, brachiocephalic, inominate all patent to the SVC. He arrives today to proceed with ICD change out along with adding a RA lead and capping existing lead. Patient Active Problem List Diagnosis Fractured atrial pacemaker lead wire No past medical history on file. No past surgical history on file. Medications Prior to Admission Medication Sig Dispense Refill Last Dose aspirin 81 MG Chew Tab chewable tablet Chew 1 tablet daily. atorvastatin 80 MG tablet TAKE 1 TABLET BY MOUTH AT BEDTIME FOR CHOLESTEROL carveDILOL 25 MG tablet TAKE 1 TABLET BY MOUTH TWICE DAILY FOR THE HEART Clopidogrel 75 MG tablet TAKE 1 TABLET BY MOUTH ONCE DAILY FOR BLOOD CLOTS docusate 100 MG capsule Take 2 capsules by mouth. escitalopram 20 MG tablet furOSEmide 40 MG tablet TAKE 1 TABLET BY MOUTH TWICE DAILY FOR WATER RETENTION Gabapentin 300 MG capsule Isosorbide mononitrate 60 MG Tab SR 24 HR tablet XL TAKE 1 TABLET BY MOUTH TWICE DAILY FOR BLOOD PRESSURE Multiple Vitamin (multivitamin) capsule Take 1 capsule by mouth daily. Pantoprazole [address] tablet DR Take 1 tablet by mouth daily. Potassium Chloride ER 20 MEQ Tab CR tablet Take 2 tablets by mouth daily. Ramipril 2.5 MG capsule Take 1 capsule by mouth 2 times daily. temazepam 15 MG capsule Take 1 capsule by mouth at bedtime. traZODone 50 MG tablet Take 1 tablet by mouth at bedtime. No Known Allergies Social History Socioeconomic History Marital status: No family history on file. PCP Speedy COCHRAN MD: James Anticoagulation: none Previous antiarrythmic medications: none Prior Cardiac testing: STRESS TEST (OUTSIDE) (Final) 09/24/2023 4. Area of apical infarct. No reversible ischemia. 5. The gated Cardiolite study reports an LVEF of 46% ECHOCARDIOGRAM (OUTSIDE) 09/24/2023 DEVICE EVALUATION 11/21/2023 Full evaluation of the device shows that RA and RV capture and sensing thresholds and impedance measurements are appropriate. AP 41%. LIFESTYLE COORDINATOR 7.4%. Device is programmed DDD at 60 bpm. Since last evaluation 09/10/2023, counters reveal no arrhythmia events. Since 11/10/2023, there have been 48 atrial noise events noted. Patient explains that this has been a current issue and due to battery status at [employer], patient is here at [facility] for evaluation of new device and atrial lead extraction and replacement. Isometrics completed, and able to reproduce noise on the atrial lead. The battery status at [employer] with voltage of 2.45V (JESSICA is 2.45V). Changes made to the device today: None. All findings given to Dr Ramirez and EP fellow. Patient follows at [facility]. Addendum: per order of Dr Ramirez, patient lower rate limit decreased to 50 bpm. Review of System Constitutional: Negative for fever, weight loss, weight gain and malaise/fatigue. Skin: Negative. HEENT: Negative. Cardiovascular: +dyspnea on exertion, Negative for leg swelling. Negative for palpitations, chest pain, orthopnea, claudication, edema and PND. Negative for lightheadedness or syncope. Respiratory: Negative for cough. Is not experiencing shortness of breath currently. Gastrointestinal: Negative for abdominal pain, nausea, vomiting, diarrhea, melena, and constipation. Endocrine: Negative for polyuria, polydipsia, heat or cold intolerance. Genitourinary: Negative for frequency or burning with urination. Neurological: Negative for dizziness and headaches. Psychiatric: Negative for depression, nervous/anxious and substance abuse. Telemetry/EKG: NSR BP 115/63 (BP Location: Right arm, BP Position: Lying) Pulse 64 Temp 98.8 F (37.1 C) (Oral) Resp 18 Ht 1.702 m (5' 7 ) Wt 133.4 kg (294 lb) SpO2 97% BMI 46.05 kg/m Body mass index is 46.05 kg/m . Physical Exam General appearance - alert, LOC x 3, well appearing, and in no distress Neck - supple, no significant adenopathy, carotids upstroke normal bilaterally without bruits. Chest - lungs clear to auscultation Heart - regular rate and rhythm, S1 and S2 normal, no murmurs, clicks, gallops or rubs, normal bilateral carotid upstroke without bruits, no JVD Abdomen - soft, nontender, nondistended, no masses or organomegaly, bowel sounds present x 4 quadrants. Extremities - peripheral pulses normal, no pedal edema, no clubbing or cyanosis Skin - normal coloration and turgor, no rashes, no suspicious skin lesions noted Lab Results Component Value Date SODIUM 138 11/21/2023 POTASSIUM 3.9 11/21/2023 CHLORIDE 106 11/21/2023 CO2 20 (L) 11/21/2023 BUN 22 11/21/2023 CREATSERUM 1.39 (H) 11/21/2023 GLUCOSE 103 (H) 11/21/2023 Lab Results Component Value Date WBC 6.0 07/02/2005 HGB 12.5 (L) 07/02/2005 HCT 36.4 (L) 07/02/2005 PLATELET 294 07/02/2005 MCV 86.6 07/02/2005 INR Date Value Ref Range Status 06/04/2005 1.0 0.9 - 1.1 Final 06/04/2005 Specimen not received in laboratory. Final 06/03/2005 Test requested but not received in labs Final Assessment and Plan Atrial Lead Noise -Here for ICD change out with addition of RA lead and capping of existing lead. -Arrived in [facility] since 1899 -OK to proceed pending lab results Associated attestation - David Ramirez MD - 01/06/2024 12:26 PM EST Patient EP plan progressing well. I discussed plan with patient and answered questions. We discussed the procedure, alternatives and risks and the patient wishes to proceed in this direction. Physical Exam: Constitutional: Alert and oriented x 3 Eyes: Extraocular motions are normal. Musculoskeletal: No edema. Neurological: Nonfocal Skin: Skin is warm and dry. Psychiatric: Affect normal. I have independently seen and examined the patient and agree with the history, physicial, assessment and plan of the certified nurse practitioner as addended by me. David Ramirez MD01/06/2024 documented in this encounter [facility] 08-26-2023 History of Presen t illness Narrative Images from the original note were not included. [facility] [address] [facility] [address] Dept: [phone] Dept Chief Complaint Patient presents with Follow-up [...] prior to signing but minor errors in grey iron molder may have occurred. documented in this encounter [facility] 08-26-2023 Instructions Kel Nielsen MD - 08/26/2023 [...] the office as soon as possible at [phone] documented in this encounter [facility] 06-01-2021 History of Presen t illness Narrative Pt discharged to [place] manner via [facility] Judi on a cot. [...] be monitored and followed by the diet central sterilization technician. Spoke to patient regarding the post operative plan. Discharge instructions and follow up were explained. We discussed the natural course of injury and expectations moving forward. Patient voiced their understanding and is agreeable with the current plan. All questions were answered. Patient was advised to contact our office with any questions or concerns. Sd Moreno PA-C Orthopedic Surgery Physical Therapy Facility/Department: [facility] Daily Treatment Note NAME: Albin Issa [...] 10 reps G-Code OutComes Score AM-PAC Score AM-PAC Inpatient Mobility Raw Score : 8 (05/29/211513) [...] off at this time. Please page resident bus and sys integration senior manager with any questions or concerns. Rafy Gloria MD Orthopaedic Surgery PGY-1 *[phone] Images from the original note were not included. Daily Trauma Progress Note Nurse Practitioner 05/28/2021 6:58 AM Admit Date: 05/23/2021 Post Trauma Day 5 Fall SH HISTORY OF TRAUMATIC EVENT: 66 y.o. male status post fall from standing. The incident happened around afternoon on 05/23/21 at home. 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 when his Rolator got [...] BID MARISELA Balderrama NP 40 mg at 05/27/211753 enoxaparin (LOVENOX) injection 30 mg 30 mg Subcutaneous BID MARISELA Croft CNP 30 mg at 05/27/212008 atorvastatin (LIPITOR) tablet 40 mg 40 mg Oral Nightly Sd Moreno PA-C 40 mg at 05/27/212007 buPROPion (WELLBUTRIN SR) extended release tablet 150 mg 150 mg Oral BID Sd Moreno PA-C 150 mg at 05/27/212008 carvedilol (COREG) tablet 3.125 mg 3.125 mg Oral BID WC Sd Moreno PA-C 3.125 mg at 05/27/21 175 clopidogrel (PLAVIX) tablet 75 mg 75 mg Oral Daily Sd Moreno PA-C 75 mg at 05/27/21 0914 escitalopram (LEXAPRO) tablet 20 mg 20 mg Oral Daily Sd Moreno PA-C 20 mg at 05/27/21 0914 gabapentin (NEURONTIN) capsule 300 mg 300 mg Oral Nightly JANICE Del CidC 300 mg at 05/27/212008 isosorbide mononitrate (IMDUR) extended release tablet 60 mg 60 mg Oral BID JANICE Del CidC 60 mg at 05/27/212008 cetirizine (ZYRTEC) tablet 10 mg 10 mg Oral Daily JANICE Del CidC 10 mg at 05/27/21 0914 [Held by provider] meloxicam (MOBIC) tablet 15 mg 15 mg Oral Daily Sd Moreno PA-C niacin (NIASPAN) extended release tablet 1,000 mg 1,000 mg Oral Nightly JANICE Del CidC 1,000 mg at 05/27/212008 potassium chloride (KLOR-CON M) extended release tablet 40 mEq 40 mEq Oral Daily JANICE Del CidC 40 mEq at 05/27/2114 ramipril (ALTACE) capsule 2.5 mg 2.5 mg Oral Daily Sd Moreno PA-C 2.5 mg at 05/27/21 0914 ranolazine (RANEXA) extended release tablet 1,000 mg 1,000 mg Oral BID JANICE Del CidC 1,000 mg at 05/27/212007 sodium chloride flush 0.9 % injection 5-40 mL 5-40 mL Intravenous 2 times per day Sd Moreno PA-C 5 mL at 05/27/212011 sodium chloride flush 0.9 % injection 5-40 mL 5-40 mL Intravenous PRN Sd Moreno PA-C 0.9 % sodium chloride infusion 25 mL Intravenous PRN Sd Moreno PA-C acetaminophen (TYLENOL) tablet 1,000 mg 1,000 mg Oral 3 times per day JANICE Del CidC 1,000 mg at 05/28/21 0532 oxyCODONE (ROXICODONE) immediate release tablet 5 mg 5 mg Oral Q4H PRN Sd Moreno PA-C Or oxyCODONE (ROXICODONE) immediate release tablet 10 mg 10 mg Oral Q4H PRN JANICE Del CidC 10 mg at 05/28/21 0115 ondansetron (ZOFRAN) [...] Date 05/28/21 0000 - 05/28/21 2359 Shift 7468-7052 4907-1714 0937-6336 24 Hour Total INTAKE P.O. 200 200 Shift Total(mL/kg) 200(1.6) 200(1.6) OUTPUT Urine(mL/kg/hr) 800 800 Shift Total(mL/kg) 800(6.3) 800(6.3) Weight (kg) 126.1 126.1 126.1 126.1 Last BM: [place] Diet: Reg CVP: No Chest Tubes: R: [...] Radiology ACCESSION EXAM DATE/TIME PROCEDURE ORDERING PROVIDER [id number] 05/24/2021 17:43 EDT CR Humerus 2+ Views Left 02329 -SD MORENO CPT code 80444 Reason For Exam (CR Humerus 2+ Views [...] Radiology ACCESSION EXAM DATE/TIME PROCEDURE ORDERING PROVIDER [id number] 05/24/2021 05:59 EDT CR Elbow 3+ Views Left MD FONTANA ALEX CPT code 61748 Reason For Exam (CR Elbow 3+ Views [...] Result Date: 05/24/2021 [id number]iology ACCESSION EXAM DATE/TIME PROCEDURE ORDERING PROVIDER [id number] 05/24/2021 05:59 EDT CR Chest 1 View Frontal MD FONTANA ALEX CPT code 12857 Reason For Exam (CR Chest 1 View [...] Hardy MD - 05/29/2021 2:43 PM EDT ~~~~~~~~~~~~~~~~~~~~~~~~~~~~~~~ ~~~~~~~~~~~~~~~~~~~~~~~~~~~~~~ ATTENDING ADDENDUM CC: Fall Active Diagnoses/Problems this Admission: Hospital Problems Last Modified POA Closed fracture of lower epiphysis of humerus 05/24/2021 Yes Left supracondylar humerus fracture, closed, initial encounter 05/24/2021 Yes Ischemic cardiomyopathy 05/25/2021 Yes Acute traumatic pain 05/25/2021 Yes Chronic systolic congestive heart failure (HCC) 05/29/2021 Yes I personally supervised the MANUFACTURING TEST TECHNICIAN/ROMEL in the evaluation and development of a [...] MD Division of Trauma Department of Surgery [facility] Pager: [phone] ~~~~~~~~~~~~~~~~~~~~~~~~~~~~~~~ ~~~~~~~~~~~~~~~~~~~~~~~~~~~~~~ This note may have been dictated using mth sense Medical Practice Edition 2.6 and/or Labs on the Go Voice Recognition Feature. The document was proofread; however, unrecognized voice recognition grey iron molder errors may be present. Physical Therapy Facility/Department: [facility] Daily Treatment Note NAME: Albin Issa [...] Worked on standing posture and placing RUE manager research on center handle of hemiwalker and keeping [...] Inpatient CMS G-Code Modifier : CM (05/27/21 123) Goals Short term goals Time Frame for [...] happened the patient was bending down to mushroom picker a delivery box when his Rolator got [...] tablet 40 mg 40 mg Oral BID Keira KamMARISELA COURT COLLECTIONS OFFICER 40 mg at 05/26/21 1611 enoxaparin (LOVENOX) injection 30 mg 30 mg Subcutaneous BID MARISELA Croft E COMMERCE ARCHITECT 30 mg at 05/26/212212 atorvastatin (LIPITOR) tablet 40 mg 40 mg Oral Nightly Sd Moreno PA-C 40 mg at 05/26/212201 buPROPion (WELLBUTRIN SR) extended release tablet 150 mg 150 mg Oral BID MIKA Del Cid-C 150 mg at 05/26/212208 carvedilol (COREG) tablet 3.125 mg 3.125 mg Oral BID WC Sd Moreno PA-C 3.125 mg at 05/26/21 161 clopidogrel (PLAVIX) tablet 75 mg 75 mg Oral Daily Sd Moreno PA-C 75 mg at 05/26/21 0951 escitalopram (LEXAPRO) tablet 20 mg 20 mg Oral Daily Sd Moreno PA-C 20 mg at 05/26/21 0952 gabapentin (NEURONTIN) capsule 300 mg 300 mg Oral Nightly Sd Moreno PA-C 300 mg at 05/26/212200 isosorbide mononitrate (IMDUR) extended release tablet 60 mg 60 mg Oral BID Sd Moreno PA-C 60 mg at 05/26/212201 cetirizine (ZYRTEC) tablet 10 mg 10 mg Oral Daily Sd Moreno PA-C 10 mg at 05/26/21 1021 [Held by provider] meloxicam (MOBIC) tablet 15 mg 15 mg Oral Daily Sd Moreno PA-C niacin (NIASPAN) extended release tablet 1,000 mg 1,000 mg Oral Nightly Sd Moreno PA-C 1,000 mg at 05/26/21 2214 potassium chloride (KLOR-CON M) extended release tablet 40 mEq 40 mEq Oral Daily Sd Moreno PA-C 40 mEq at 05/26/2152 ramipril (ALTACE) capsule 2.5 mg 2.5 mg Oral Daily Sd Moreno PA-C 2.5 mg at 05/26/21 1021 ranolazine (RANEXA) extended release tablet 1,000 mg 1,000 mg Oral BID JANICE Del CidC 1,000 mg at 05/26/21 2202 sodium chloride flush 0.9 % injection 5-40 mL 5-40 mL Intravenous 2 times per day JANICE Del CidC 5 mL at 05/26/21 1002 sodium chloride [...] Daily JANICE Del CidC 81 mg at 05/26/21 0951 senna (SENOKOT) tablet 8.6 mg 1 tablet Oral Nightly Sd Moreno PA-C 8.6 mg at 05/26/21 220 polyethylene glycol (GLYCOLAX) packet 17 g 17 g Oral Daily JANICE Del CidC 17 g at 05/26/21 0951 docusate sodium (COLACE) capsule 100 mg 100 mg Oral BID JANICE Del CidC 100 mg at 05/26/21 2202 LORazepam (ATIVAN) tablet 0.5 mg 0.5 mg Oral Nightly PRN Renny Biswas MD 0.5 mg at 05/25/21 2318 ARE THERE PERTINENT UPDATES TO PAST,FAMILY, OR [...] Date 05/27/21 0000 - 05/27/21 2359 Shift 8835-6109 6585-0291 0283-1550 24 Hour Total INTAKE P.O. 350 350 Shift Total(mL/kg) 350(2.8) 350(2.8) OUTPUT Urine(mL/kg/hr) 750 750 Shift Total(mL/kg) 750(5.9) 750(5.9) Weight (kg) 126.1 126.1 126.1 126.1 Last BM: [place] Diet: Reg CVP: No Chest Tubes: R: [...] Radiology ACCESSION EXAM DATE/TIME PROCEDURE ORDERING PROVIDER [id number] 05/24/2021 17:43 EDT CR Humerus 2+ Views Left 75379 -SD MORENO CPT code 85752 Reason For Exam (CR Humerus 2+ Views [...] Radiology ACCESSION EXAM DATE/TIME PROCEDURE ORDERING PROVIDER [id number] 05/24/2021 05:59 EDT CR Elbow 3+ Views Left MD FONTANA ALEX CPT code 60410 Reason For Exam (CR Elbow 3+ Views [...] Radiology ACCESSION EXAM DATE/TIME PROCEDURE ORDERING PROVIDER [id number] 05/24/2021 05:59 EDT CR Chest 1 View Frontal MD FONTANA ALEX CPT code 82598 Reason For Exam (CR Chest 1 View [...] Hardy MD - 05/27/2021 11:33 AM EDT ~~~~~~~~~~~~~~~~~~~~~~~~~~~~~~~ ~~~~~~~~~~~~~~~~~~~~~~~~~~~~~~ ATTENDING ADDENDUM CC: left arm pain Active Diagnoses/Problems this Admission: Hospital Problems Last Modified POA Closed fracture of lower epiphysis of humerus 05/24/2021 Yes Left supracondylar humerus fracture, closed, initial encounter 05/24/2021 Yes Ischemic cardiomyopathy 05/25/2021 Yes Acute traumatic pain 05/25/2021 Yes I personally supervised the MANUFACTURING TEST TECHNICIAN/ROMEL in the evaluation and development of a [...] MD Division of Trauma Department of Surgery [facility] Pager: [phone] ~~~~~~~~~~~~~~~~~~~~~~~~~~~~~~~ ~~~~~~~~~~~~~~~~~~~~~~~~~~~~~~ This note may have been dictated using mth sense Medical Practice Edition 2.6 and/or Labs on the Go Voice Recognition Feature. The document was proofread; however, unrecognized voice recognition grey iron molder errors may be present. Physical Therapy Facility/Department: [facility] Daily Treatment Note NAME: Albin Issa [...] (05/26/211331) Mobility Inpatient CMS 0-100% Score: 76.75 (05/26/211331) Mobility Inpatient CMS G-Code Modifier : CL [...] Moreno PA-C Orthopedic Surgery Occupational Therapy Facility/Department: [facility] Daily Treatment Note NAME: Albin Issa [...] sit: Moderate assistance Cognition Overall Cognitive Status: [facility] Cognition Comment: Pt. continues to insists that [...] Group Co-treatment Time In 804 Time Out 08 Minutes 47 Timed Code Treatment Minutes: 47 [...] happened the patient was bending down to mushroom picker a delivery box when his Rolator got [...] mg 30 mg Subcutaneous BID MARISELA Croft CNP 30 mg at 05/25/212058 atorvastatin (LIPITOR) tablet 40 mg 40 mg Oral Nightly Sd Moreno PA-C 40 mg at 05/25/212099 buPROPion (WELLBUTRIN SR) extended release tablet 150 mg 150 mg Oral BID MIKA Del Cid-C 150 mg at 05/25/212112 carvedilol (COREG) tablet 3.125 mg 3.125 mg Oral BID WC Sd Moreno, PA-C 3.125 mg at 05/25/21 174 clopidogrel (PLAVIX) tablet 75 mg 75 mg Oral Daily Sd Josh, PA-C 75 mg at 05/25/21906 escitalopram (LEXAPRO) tablet 20 mg 20 mg Oral Daily Sdosman Moreno, PA-C 20 mg at 05/25/21 075 furosemide (LASIX) tablet 80 mg 80 mg Oral Nightly Sd Josh, PA-C 80 mg at 05/25/212099 gabapentin (NEURONTIN) capsule 300 mg 300 mg Oral Nightly Sdosman Moreno, PA-C 300 mg at 05/25/212099 isosorbide mononitrate (IMDUR) extended release tablet 60 mg 60 mg Oral BID Sd Moreno PA-C 60 mg at 05/25/212099 cetirizine (ZYRTEC) tablet 10 mg 10 mg Oral Daily Sd Moreno PA-C 10 mg at 05/25/21 075 [Held by provider] meloxicam (MOBIC) tablet 15 mg 15 mg Oral Daily Sd Moreno PA-C niacin (NIASPAN) extended release tablet 1,000 mg 1,000 mg Oral Nightly Sd Moreno, PA-C 1,000 mg at 05/25/212100 potassium chloride (KLOR-CON M) extended release tablet 40 mEq 40 mEq Oral Daily Sd Moreno PA-C 40 mEq at 05/25/21753 ramipril (ALTACE) capsule 2.5 mg 2.5 mg Oral Daily Sd Moreno, PA-C 2.5 mg at 05/25/21906 ranolazine (RANEXA) extended release tablet 1,000 mg 1,000 mg Oral BID Sd Moreno, PA-C 1,000 mg at 05/25/212099 sodium chloride flush 0.9 % injection 5-40 mL 5-40 mL Intravenous 2 times per day Sd Moreno, PA-C 10 mL at 05/25/212113 sodium chloride flush 0.9 % injection 5-40 mL 5-40 mL Intravenous PRN Sd Moreno PA-C 0.9 % sodium chloride infusion 25 mL Intravenous PRN Sd Moreno PA-C acetaminophen (TYLENOL) tablet 1,000 mg 1,000 mg Oral 3 times per day Sd Moreno, PA-C 1,000 mg at 05/26/21 0504 oxyCODONE (ROXICODONE) immediate release tablet 5 mg 5 mg Oral Q4H PRN MIKA Del Cid-C Or oxyCODONE (ROXICODONE) immediate release tablet 10 mg 10 mg Oral Q4H PRN Sd Moreno PA-C 10 mg at 05/25/212058 ondansetron (ZOFRAN) injection 4 mg 4 mg Intravenous Q6H PRN MIKA Del Cid-C aspirin EC tablet 81 mg 81 mg Oral Daily Sd Moreno PA-C 81 mg at 05/25/21 0755 senna (SENOKOT) tablet 8.6 mg 1 tablet Oral Nightly MIKA Del Cid-C 8.6 mg at 05/25/21 2100 polyethylene glycol (GLYCOLAX) packet 17 g 17 g Oral Daily Sd Moreno PA-C 17 g at 05/25/21 0754 docusate sodium (COLACE) capsule 100 mg 100 mg Oral BID MIKA Del Cid-C 100 mg at 05/25/21 0754 LORazepam (ATIVAN) tablet 0.5 mg 0.5 mg Oral Nightly PRN Renny Biswas MD 0.5 mg at 05/25/21 2317 ARE THERE PERTINENT UPDATES TO PAST,FAMILY, OR [...] Date 05/26/21 0000 - 05/26/21 2359 Shift 4095-3170 0450-2336 6719-8117 24 Hour Total INTAKE Shift Total(mL/kg) OUTPUT Urine(mL/kg/hr) 800 800 Shift Total(mL/kg) 800(6.3) 800(6.3) Weight (kg) 126.1 126.1 126.1 126.1 Last BM: [place] Diet: Reg CVP: No Chest Tubes: R: [...] Radiology ACCESSION EXAM DATE/TIME PROCEDURE ORDERING PROVIDER [id number] 05/24/2021 17:43 EDT CR Humerus 2+ Views Left SD NORWOOD CPT code 96618 Reason For Exam (CR Humerus 2+ Views [...] Result Date: 05/24/2021 Patient Name: ALBIN ISSA [facility]#: [id number] Diagnostic Radiology ACCESSION EXAM DATE/TIME PROCEDURE ORDERING PROVIDER [id number] 05/24/2021 05:59 EDT CR Elbow 3+ Views Left MD FONTANA ALEX CPT code 72188 Reason For Exam (CR Elbow 3+ Views [...] Result Date: 05/24/2021 [id number] Diagnostic Radiology ACCESSION EXAM DATE/TIME PROCEDURE ORDERING PROVIDER [id number] 05/24/2021 05:59 EDT CR Chest 1 View Frontal MD FONTANA ALEX CPT code 05901 Reason For Exam (CR Chest 1 View [...] Hardy MD - 05/26/2021 12:59 PM EDT ~~~~~~~~~~~~~~~~~~~~~~~~~~~~~~~ ~~~~~~~~~~~~~~~~~~~~~~~~~~~~~~ ATTENDING ADDENDUM CC: left arm pain Active Diagnoses/Problems this Admission: Hospital Problems Last Modified POA Closed fracture of lower epiphysis of humerus 05/24/2021 Yes Left supracondylar humerus fracture, closed, initial encounter 05/24/2021 Yes Ischemic cardiomyopathy 05/25/2021 Yes Acute traumatic pain 05/25/2021 Yes I personally supervised the MANUFACTURING TEST TECHNICIAN/MIKA-Sen in the evaluation and development of a [...] MD Division of Trauma Department of Surgery [facility] Pager: [phone] ~~~~~~~~~~~~~~~~~~~~~~~~~~~~~~~ ~~~~~~~~~~~~~~~~~~~~~~~~~~~~~~ This note may have been dictated using mth sense Medical Practice Edition 2.6 and/or Labs on the Go Voice Recognition Feature. The document was proofread; however, unrecognized voice recognition grey iron molder errors may be present. Images from the original note were not included. [facility] TELEMETRY [address] [place] [address] Dept: [phone] Loc: [phone] Orthopedic Progress Note Name: Albin Issa Date:05/26/2021 [...] Independent (with lift chair) Mode of Transportation: [employer] Occupation: Retired Additional Comments: Patient states his [...] WFL Cognition Comment: Good historian; insists that cleared [...] distally LUE Strength LUE Strength Comment: 3/5 manager research RUE Strength RUE Strength Comment: 3-/5 shoulder, 4/5 manager research Plan Plan Times per week: 5 Plan [...] AM-PAC Inpatient Daily Activity Raw Score: 16 AM-[facility] Inpatient ADL T-Scale Score : 35.96 ADL [...] Time Individual Concurrent Group Co-treatment Time In 953 Time Out 1027 Minutes 33 Timed Code Treatment Minutes: 10 Minutes (ADL) Goals and/or treatment plan was established in collaboration with patient/family/other representatives. Patient's Occupational Therapy Plan [facility]. Pt requires skill of 2 therapists for safety and positioning. Carlita Lira/OT Physical Therapy Facility/Department: [facility] Initial Assessment NAME: Albin Issa : [...] Subjective: Patient lying in bed upon arrival, nursing home assistant administrator finishing assessing vitals. Patient pleasant and agreeable [...] UPwalker) Transfer Assistance: Independent Mode of Transportation: SUV Occupation: Retired Additional Comments: Patient states his daughter will be staying with him for a couple day upon return home. Cognition Cognition Overall Cognitive Status: WFL Cognition [...] Mobility Inpatient CMS G-Code Modifier : CM (05/25/211106) Goals Short term goals Time Frame for Short term goals: 2 weeks Short term goal 1: Perform bed mobility with SBA Short term goal 2: Perform transfers with min A Short term goal 3: Ambulate 30 feet using hemiwalker with min A Patient Goals Patient goals : To go home Therapy Time Individual Concurrent Group Co-treatment Time In 09 0954 (Co-tx needed for safety) Time Out 1027 1027 Minutes 33 33 Timed Code Treatment Minutes: 9 Minutes (FA x1) Maria L Jeffers PT PT wore kN95 mask, goggles, and gloves throughout entire session with patient. Patient s Physical Therapy Plan of Care supervision is transferred to [facility] Rehab Department Physical Therapist. Nutrition rescreen completed. Chart reviewed. Patient to be monitored and followed by the diet central sterilization technician. Images from the original note were not included. Daily Trauma Progress Note Nurse Practitioner 05/25/2021 6:23 AM Admit Date: 05/23/2021 Post Trauma Day 2 Fall SH HISTORY OF TRAUMATIC EVENT: 66 y.o. male status post fall from standing. The incident happened around afternoon on 05/23/21 at home. 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 when his Rolator got [...] mg 40 mg Oral Nightly MIKA Del Cid-Sen 40 mg at 05/24/212204 buPROPion (WELLBUTRIN SR) extended release tablet 150 mg 150 mg Oral BID MIKA Del Cid-C 150 mg at 05/24/212204 carvedilol (COREG) tablet 3.125 mg 3.125 mg Oral BID MIKA Del Cid-C 3.125 mg at 05/24/21930 [Held by provider] clopidogrel (PLAVIX) tablet 75 mg 75 mg Oral Daily MIKA Del Cid-C escitalopram (LEXAPRO) tablet 20 mg 20 mg Oral Daily MIKA Del Cid-C 20 mg at 05/24/21930 [Held by provider] furosemide (LASIX) tablet 80 mg 80 mg Oral Nightly Sd Moreno PA-C gabapentin (NEURONTIN) capsule 300 mg 300 mg Oral Nightly Sd Moreno PA-C 300 mg at 05/24/212203 isosorbide mononitrate (IMDUR) [...] Daily Sd Moreno PA-C 40 mEq at 05/24/21930 ramipril (ALTACE) capsule [...] at 05/24/21 0305 New Bag at 05/24/21 030 acetaminophen (TYLENOL) tablet 1,000 mg 1,000 mg Oral 3 times per day Sd Moreno PA-C 1,000 mg at 05/24/212204 oxyCODONE (ROXICODONE) immediate release tablet 5 mg [...] 81 mg 81 mg Oral Daily Sd Morneo PA-C senna (SENOKOT) tablet 8.6 mg 1 [...] Temporal 63 18 97 % Last BM: TER[place] Diet: Reg CVP: No Chest Tubes: R: [...] Radiology ACCESSION EXAM DATE/TIME PROCEDURE ORDERING PROVIDER [id number] 05/24/2021 17:43 EDT CR Humerus 2+ Views Left [place] BHARDWAJ CPT code 71276 Reason For Exam (CR Humerus 2+ Views [...] Radiology ACCESSION EXAM DATE/TIME PROCEDURE ORDERING PROVIDER [id number] 05/24/2021 05:59 EDT CR Elbow 3+ Views Left MD FONTANA ALEX CPT code 66536 Reason For Exam (CR Elbow 3+ Views [...] Radiology ACCESSION EXAM DATE/TIME PROCEDURE ORDERING PROVIDER [id number] 05/24/2021 05:59 EDT CR Chest 1 View Frontal MD FONTANA ALEX CPT code 30247 Reason For Exam (CR Chest 1 View [...] home today or tomorrow. Associated attestation - Mary Anne Hardy MD - 05/25/2021 12:39 PM EDT ~~~~~~~~~~~~~~~~~~~~~~~~~~~~~~~ ~~~~~~~~~~~~~~~~~~~~~~~~~~~~~~ ATTENDING ADDENDUM CC: Left arm pain Active [...] MD Division of Trauma Department of Surgery [facility] Pager: [phone] ~~~~~~~~~~~~~~~~~~~~~~~~~~~~~~~ ~~~~~~~~~~~~~~~~~~~~~~~~~~~~~~ This note may have been dictated using mth sense Medical Practice Edition 2.6 and/or Labs on the Go Voice Recognition Feature. The document was proofread; however, unrecognized voice recognition grey iron molder errors may be present. Images from the original note were not included. [facility] TELE[facility] [address] [place] [address] Dept: [phone] Loc: [phone] Orthopedic Progress Note Name: Albin Issa Date:05/25/2021 [...] x2380 Patient to be transported back to [facility]. Telephone report given to JUANCHO Wells [...] eGFR 88.3 >60 mL/min EGFR IF NonAfrican Austrian 76.2 >60 mL/min Calcium 9.3 8.4 - [...] # 1.3 1.0 - 4.3 10*3/uL Absolute Colbert # 0.5 0.0 - 0.8 10*3/uL Absolute [...] radial artery Imaging: none Assessment: Mr. Albin S Luis Manuel is a 66 y.o. year old male left extra-articular humerus fracture Plan: -Will d/w Dr. Biswas -Plan for possible ORIF 05/24 v 05/[address] Biswas -Added -Cleared per trauma, cardiac clearance p -Consented -Labs complete -NWB LUE -Splint/sling LUE - keep c/d/i -Ice -Pain and medical management per primary team -Ortho to follow documented in this encounter [facility] Work Phone: 05-31-2021 Hospital Discharg e instructions Keira Humphrey [...] most local grocery stores, pharmacies, and chain super-stores. If you have any questions about your diet or nutrition, call the hospital and ask for the dietitian. 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), right ([facility]) Z89.611 MRSA (methicillin resistant Staphylococcus aureus) infection [...] MENTAL STATUS::::0} IV Access: { MICHAELA IV ACCESS:543624056:::0} Nursing Mobility/ADLs: Walking {CHP DME ADLs:079483613:::0} Transfer {CHP DME ADLs:653849087:::0} Bathing {CHP DME ADLs:516932355:::0} Dressing {CHP DME ADLs:351313665:::0} Toileting {CHP DME ADLs:488194242:::0} Feeding {CHP DME ADLs:019900356:::0} Wort Extractor {CHP DME ADLs:013160243:::0} Med Delivery { MICHAELA MED Delivery:993804986:::0} Wound Care Documentation and Therapy: Negative Pressure Wound Therapy Leg Right;Upper (Active) Number of days: 762 Elimination: Continence: Bowel: {YES / NO:} Bladder: {YES / NO:} Urinary Catheter: {Urinary Catheter:589223317:::0} Colostomy/Ileostomy/Ileal Conduit: {YES / NO:} Date of Last BM: No intake or output data in the 24 hours ending 05/25/21 1230 No intake/output data recorded. Safety Concerns: { MICHAELA Safety Concerns:511429581:::0} Impairments/Disabilities: { MICHAELA Impairments/Disabilities:706472 273:::0} Nutrition Therapy: Current Nutrition Therapy: { MICHAELA Diet List:584698320:::0} Routes of Feeding: {CHP DME Other Feedings:856060218:::0} Liquids: {Land Law Examiner liquid thickness:44374} Daily Fluid Restriction: {CHP DME Yes amt example:860137607:::0} Last Modified Barium Swallow with Video (Video Swallowing Test): {Done Not Done Date::::0} Treatments at the Time of Hospital Discharge: Respiratory Treatments: Oxygen Therapy: {Therapy; copd oxygen:36454:::0} Ventilator: { CC Vent List:130815754:::0} Rehab Therapies: {THERAPEUTIC INTERVENTION:4029810595} Weight Bearing Status/Restrictions: {MH CC Weight Bearin:::0} Other Medical Equipment (for information only, NOT a DME order): {EQUIPMENT:884413157} Other Treatments: Patient's personal belongings (please select all that are sent with patient): {CHP DME Belongings:611205960:::0} RN SIGNATURE: {Esignature:613398116:::0} CASE MANAGEMENT/SOCIAL WORK SECTION Inpatient Status Date: 05-23-21 Readmission Risk Assessment Score: Readmission Risk Risk of Unplanned Readmission: 10 Discharging to Facility/ Agency Name: [facility] Address:[address] [place] [address] Dialysis Facility (if applicable) Name: Address: Dialysis Schedule: Phone: Fax: Information Security Associate/Rice Farmworker signature: PHYSICIAN SECTION Prognosis: Good Condition at Discharge: Stable Rehab Potential (if transferring to Rehab): Good Recommended Labs or Other Treatments After Discharge: None Physician Certification: I certify the above information and transfer of Albin Issa is necessary for the continuing treatment of the diagnosis listed and that he requires Care Home Facility for less 30 days. Update Admission [...] problems or questions. documented in this encounter [facility] Work Phone: documented in this encounter [facility] Work Phone: Evaluation note* Diagnosis Arthritis of left subtalar joint documented in this encounter [facility]* Diagnosis ICD (implantable cardioverter-defibrillator) battery depletion Pacemaker lead malfunction Mechanical complication due to cardiac pacemaker (electrode) ICD (implantable cardioverter-defibrillator) battery depletion documented in this encounter [facility] Summary Purpose Family History No Family History Records FoundNo Family History Records FoundNo Family History Records FoundNo Family History Records FoundNo Family History Records FoundNo Family History Records Found Advance Directives No Advanced Directives Records FoundDocuments on File Type Date Recorded Patient Shingle Grader Expl anation ACP-Advance Directive ACP-Power of Product Scientist Latest Code Status on File Code Status [...] Inactivated Comments Full Code 11/21/2023 3:07 PM Latest Code Status on File Code Status Date Activated Date Inactivated Comments Full Code 01/06/2024 1:43 PM Code Status History Code Status Date Activated Date Inactivated Comments Full Code 11/21/2023 3:07 PM 01/06/2024 1:43 PM Reason for Referral Specialty Diagnoses / Procedures Referred By Contac t Referred To Contact Procedures PACEMAKER/ICD INTERROGATION David Ramirez MD [address] [place] [phone] Referral ID Status Reason Start Date Expiration Date V isits Requested Visits Authorized [id number] New Request 01/06/2024 01/30/2025 1 1 Specialty Diagnoses / Procedures Referred By Contac t Referred To Contact Procedures NO PHARMACOLOGICAL DVT PROPHYLAXIS Rosio Douglass, MANUFACTURING TEST TECHNICIAN-E COMMERCE ARCHITECT [address] [place] [phone] Referral ID Status Reason Start Date Expiration Date V isits Requested Visits Authorized [id number] New Request 01/06/2024 01/30/2025 1 1 Specialty Diagnoses / Procedures Referred By Contac t Referred To Contact Procedures DVT/VTE RISK ASSESSMENT Rosio Douglass APRN-E COMMERCE ARCHITECT [address] [place] [phone] Referral ID Status Reason Start Date Expiration Date V isits Requested Visits Authorized [id number] New Request 01/06/2024 01/30/2025 1 1 Specialty Diagnoses / Procedures Referred By Contac t Referred To Contact Procedures Wilda Green APRN-E COMMERCE ARCHITECT [address] [place], [place] [id number] Referral ID Status Reason Start Date Expiration Date V isits Requested Visits Authorized [id number] New Request 01/06/2024 01/30/2025 1 1 Additional Source Comments (unrecognized sect ion and content) No Status Records FoundNo Status Records FoundNo Status Records FoundNo Status Records FoundNo Status Records FoundNo Status Records Found INFORMATION SOURCE (unrecogn ized section and content) DATE CREATED AUTHOR AUTHOR'S ORGANIZ ATION 06/02/2021 [employer] DATE CREATED AUTHOR AUTHOR'S ORGANIZ ATION 06/11/2021 [facility] [employer] [facility] [employer] DATE CREATED AUTHOR AUTHOR'S ORGANIZ ATION 03/09/2022 [facility] ([place]) DATE CREATED AUTHOR AUTHOR'S ORGANIZ ATION 02/12/2023 [employer] [facility] DATE CREATED AUTHOR AUTHOR'S ORGANIZ ATION 01/16/2024 [facility] Ordered Prescriptions (unrec ognized section and content) [...] Severe (7-10), Starting on Sat05/24/21 at 0151 Scheduled Medication Order 01/05/2024 01/06/2024 01/07/2024 aspirin chewable tablet 81 mg 81 mg, Oral, DAILY, First dose on Sat01/06/24 at 1700, Until Discontinued 2228 (Given - Provider: Jessie Mccoy RN) 0842 (Given - Provider: Kala Arellano RN) Atorvastatin (LIPITOR) tablet 80 mg 80 mg, Oral, DAILY AT BEDTIME, First dose on Sat01/06/24 at 2100, Until Discontinued 2216 (Given - Provider: Jessie Mccoy RN) carveDILOL (COREG) tablet 25 mg 25 mg, Oral, 2 TIMES DAILY, First dose on Sat01/06/24 at 1700, Until Discontinued 1700 (Given - Provider: Claudia Murray RN) 0842 (Given - Provider: Kala Arellano RN) Clopidogrel (PLAVIX) tablet 75 mg 75 mg, Oral, DAILY, First dose on Sat01/07/24 at 0900, Until Discontinued 0843 (Given - Provid er: Kala Arellano RN) Docusate (COLACE) capsule 200 mg 200 mg, Oral, DAILY, First dose on Sat01/07/24 at 0900, Until Discontinued 0843 (Given - Provid er: Kala Arellano RN) escitalopram (LEXAPRO) tablet 20 mg 20 mg, Oral, DAILY, First dose on Sat01/07/24 at 0900, Until Discontinued 842 (Given - Provid er: Kala Arellano RN) furOSEmide (LASIX) tablet 40 mg 40 mg, Oral, 2 TIMES DAILY BEFORE MEALS, First dose on Sat01/06/24 at 1600, Until Discontinued 1730 (Given - Provider: Claudia Murray RN) 0844 (Not Given - Provider: Kala Arellano RN - Reason: Other - Comment: pt will take at home) Gabapentin (NEURONTIN) capsule 300 mg 300 mg, Oral, DAILY AT BEDTIME, First dose on Sat01/06/24 at 2100, Until Discontinued 2216 (Given - Provider: Jessie Mccoy RN) Isosorbide mononitrate (IMDUR) tablet XL 60 mg 60 mg, Oral, 2 TIMES DAILY, First dose on Sat01/06/24 at 2100, Until Discontinued, Do not crush or chew. May be divided in half. 2216 (Given - Provider: Jessie Mccoy RN) 0842 (Given - Provider: Kala Arellano RN) Lisinopril (PRINIVIL) tablet 10 mg 10 mg, Oral, DAILY, First dose on Sat01/07/24 at 0900, Until Discontinued 08 (Given - Provid er: Kala Arellano RN) Pantoprazole (PROTONIX) tablet DR 40 mg 40 mg, Oral, DAILY, First dose on Sat01/07/24 at 0900, Until Discontinued, Swallow whole; do not crush or chew., Indications: Continuation of Home Therapy 44 (Given - Provid er: Kala Arellano RN) temazepam (RESTORIL) capsule 15 mg 15 mg, Oral, DAILY AT BEDTIME, First dose on Sat01/06/24 at 2100, Until Discontinued, Swallow capsule whole; do not crush, open, or chew. Contact pharmacy if alternate route or dose is needed. 2239 (Given - Provider: Jessie Mccoy, RN) traZODone (DESYREL) tablet 50 mg 50 mg, Oral, DAILY AT BEDTIME, First dose on Sat01/06/24 at 2100, Until Discontinued 2217 (Given - Provider: Jessie Mccoy, RN) PRN Medication Order 01/05/2024 01/06/2024 01/07/2024 Acetaminophen (TYLENOL) tablet 325 mg 325 mg, Oral, EVERY 6 HOURS NEEDED, Starting on Sat01/06/24 at 1203, Until Sat01/07/24 at 1056, Mild Pain, Maximum dose of acetaminophen is 4000 mg from all sources in 24 hours. alum/mag hydrox.-simethicone oral suspension 30 mL 30 mL, Oral, EVERY 6 HOURS NEEDED, Starting on Sat01/06/24 at 1203, Until Sat01/07/24 at 1056, Indigestion, Per 5 mL is equivalent to: (Alum-Mag Hydroxide 200-225 mg and Simethicone 20 mg) and (Alum-Mag Hydroxide 200-200 mg and Simethicone 20 mg) HYDROmorphone (DILAUDID) injection 0.2 mg 0.2 mg, Intravenous, EVERY 2 HOURS NEEDED, Starting on Sat01/06/24 at 1343, Until Sat01/07/24 at 1056, Severe Pain, If unable to tolerate PO, Post-op/Post-Proc Lidocaine (XYLOCAINE) 10 mg/mL injection (CANCELED) NEEDED, Starting on Sat01/06/24 at 1215, Until Sat01/06/24 at 1343, Intra-op/Intra-Proc 1215 (Given - Provider: Manuel Redd MD) magnesium oxide (MAG-OX) tablet 800 mg 800 mg, Oral, ADMINISTER DIRECTED, Starting on Sat01/06/24 at 1203, Until Sat01/07/24 at 1056, See admin instructions, For Magnesium 1.6 - 2.0, give 800 mg of Magnesium oxide Magnesium sulfate 4 g in sterile water 50 ml premix IVPB 4 g, Intravenous, Administer over 4 Hours, ADMINISTER DIRECTED, Starting on Sat01/06/24 at 1203, Until Sat01/07/24 at 1056, Other, Magnesium Replacement Therapy, If Magnesium less than 1.6, give 4 g Magnesium Sulfate IVPB over 4 hours (may give over 1 hour if arrhythmias present). Melatonin tablet 3 mg 3 mg, Oral, DAILY AT BEDTIME NEEDED, Starting on Sat01/06/24 at 1203, Until Sat01/07/24 at 1056, Insomnia Ondansetron 4mg/2ml (ZOFRAN) injection 4 mg 4 mg, Intravenous, EVERY 4 HOURS NEEDED, Starting on Sat01/06/24 at 1203, Until Sat01/07/24 at 1056, Nausea / Vomiting oxyCODONE (ROXICODONE) tablet 5 mg(Linked Group 1) 5 mg, Oral, EVERY 4 HOURS NEEDED, Starting on Sat01/06/24 at 1343, Until Sat01/07/24 at 1056, Moderate Pain, Severe Pain, PRN for Moderate Pain. Use for Severe Pain if IV not available for use as initial dose. Higher dose may be administred if lower dose was previously documented as ineffective and did not result in adverse effects (RR<10, decrease in level of consciousness)., Post-op/Post-Proc oxyCODONE HCl (ROXICODONE) tablet 10 mg(Linked Group 1) 10 mg, Oral, EVERY 4 HOURS NEEDED, Starting on Sat01/06/24 at 1343, Until Sat01/07/24 at 1056, Moderate Pain, Severe Pain, PRN for Moderate Pain. Use for Severe Pain if IV not available for use as initial dose. Higher dose may be administred if lower dose was previously documented as ineffective and did not result in adverse effects (RR<10, decrease in level of consciousness), Post-op/Post-Proc Polyethylene glycol (MIRALAX) packet 17 g 17 g, Oral, DAILY NEEDED, Starting on Sat01/06/24 at 1203, Until Sat01/07/24 at 1056, Constipation 1st Line Potassium chloride (K-DUR) tablet ER 20 mEq 20 mEq, Oral, ADMINISTER DIRECTED, Starting on Sat01/06/24 at 1203, Until Sat01/07/24 at 1056, See admin instructions, If Cr 2.0 - 2.5 mg/dL For Potassium less than 3.6, give 20 mEq Potassium Chloride orally, recheck in AM. If Cr greater than 2.5 mg/dL contact physician/LIP for Potassium less than 3.6 for replacement orders. If potassium is low please administer magnesium first if indicated Potassium chloride (K-DUR) tablet ER 40-60 mEq 40-60 mEq, Oral, ADMINISTER DIRECTED, Starting on Sat01/06/24 at 1203, Until Sat01/07/24 at 1056, See admin instructions, If Cr less than 2.0 mg/dL 1. For Potassium 3.6 - 4.0, give 40 mEq of Potassium Chloride orally, recheck in the AM. 2. For Potassium less than 3.6, give 60 mEq Potassium Chloride orally, recheck in 8 hours. 3. If potassium is low please administer magnesium first if indicated. Sodium chloride 0.9% IV solution 250 mL Intravenous, at 20 mL/hr, NEEDED, Starting on Sat01/06/24 at 1203, Until Sat01/07/24 at 1056, Carrier Fluid - See Admin. Inst, 250mL 0.9NS to be used as carrier fluid for intermittent small volume or piggyback medication administration as needed. Infusion rate of the carrier fluid should be set at 20 mL/hr unless the rate as the intermittent medication is less than 20 mL/hr. For intermittent medications with a rate less than 20 mL/hr set the carrier fluid at that rate of the intermittent or piggy back medication. Vancomycin HCl in NaCl (Vancocin) 1,500 mg 290 ml premade IVPB (COMPLETED) 1,500 mg, Intravenous, Administer over 1 Hours, IN HOME AIDE TO PROCEDURE, 1 dose, Starting on Sat01/06/24 at 0000, Until Discontinued, Other, Preoperative antibiotic, Order should be timed for day of procedure. 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 Vancomycin is preferred agent for device implants, based on national, community and local ([facility]) MRSA rates., Pre-op/Pre-Proc 0735 ($$New Bag$$ - Provider : Kala Arellano RN) No Frequency Medication Order 01/05/2024 01/06/2024 01/07/2024 Sodium chloride 0.9% IV solution (COMPLETED) 1 dose, Starting on Sat01/06/24 at 0711, Until Sat01/07/24 at 0730, Created by cabinet override 0735 ($$New Bag$$ - Provider : Kala Arelalno RN) Linked Groups Order Group 1: oxyCODONE (ROXICODONE) tablet 5 mgJump to med 5 mg, Oral, EVERY 4 HOURS NEEDED, Starting on Sat01/06/24 at 1343, Until Sat01/07/24 at 1056, Moderate Pain, Severe Pain
PRN for Moderate Pain. Use for Severe Pain if IV not available for use as initial dose. Higher dose may be administred if lower dose was previously documented as ineffective and did not result in adverse effects (RR<10, decrease in level of consciousness).
Post-op/Post-Proc Or oxyCODONE HCl (ROXICODONE) tablet 10 mgJump to med 10 mg, Oral, EVERY 4 HOURS NEEDED, Starting on Sat01/06/24 at 1343, Until Sat01/07/24 at 1056, Moderate Pain, Severe Pain
PRN for Moderate Pain. Use for Severe Pain if IV not available for use as initial dose. Higher dose may be administred if lower dose was previously documented as ineffective and did not result in adverse effects (RR<10, decrease in level of consciousness)
Post-op/Post-Proc Reason for Visit (unrecogniz ed section and content) Specialty Diagnoses / Procedures Referred By Contac t Referred To Contact Diagnoses Venous (peripheral) insufficiency Venous (peripheral) insufficiency [I87.2] Procedures CT INJECTION PROC,EXTREMITY,VENOGRAPHY VENOGRAM David Ramirez MD [address] [place] [id number] [facility] [address] [place] [address] Referral ID Status Reason Start Date Expiration Date Visits Re quested Visits Authorized [id number] 1 1 Specialty Diagnoses / Procedures Referred By Contac t Referred To Contact Diagnoses ICD (implantable cardioverter-defibrillator) battery depletion ICD (implantable cardioverter-defibrillator) battery depletion [Z45.02] Procedures CT RMVL IMPLTBL DFB PLSE GEN W/REPL PLSE GEN [address] INSJ 1 TRANSVNS ELTRD PERM PACEMAKER/IMPLTBL DFB ICD GENERATOR CHANGEOUT LEAD INSERTION Justin Pittman MD [address] [place] [phone] [facility] [address] [place] [address] Referral ID Status Reason Start Date Expiration Date Visits Re quested Visits Authorized [id number] 1 1 Care Teams (unrecognized sec tion and content) Donor Relations Manager Relationship Specialty Start Date End Date Speedy Boswell MD [address] [facility] [address] [place], [place] [id number] PCP - General Family Medicine 11/21/23 Delilah Villagomez MD [address] [facility] [address] [place], [place] [id number] Cardiovascular Disease 09/11/23 Donor Relations Manager Relationship Specialty Start Date End Date Speedy Boswell MD [address] [facility] [address] [place], [place] [phone] PCP - General Family Medicine 11/21/23 Delilah Villagomez MD [address] [facility] [address] [place], [place] [address] Cardiovascular Disease 09/11/23 FOR RECORDS PERTAINING TO [...] BE BASED ON THE PRIMARY CLINICAL RECORDS. [employer] provides no warranty or guarantee of the accuracy or completeness of information in this document.
== END | disposition home or self-care (01) ==
LOC: LAB 15:23
PROVIDERS: PCP Family Medicine; Referring Provider Nurse Practitioner; Visit Provider Nurse Practitioner
DX: Z12.5 Encounter for screening for malignant neoplasm of prostate (principal)
CPT/HCPCS: 36415; 84153; G0103

== ENCOUNTER → 2024-03-05 | Outpatient (CLI) | payer MEDICARE, SELFPAY ==
--- NOTE | 2024-03-05 12:35 | RAD_ITS ---
CLINICAL HISTORY: Male, 68 years old. Osteoarthritis. PROCEDURE: ARTHROGRAM - LEFT KNEE. CONSENT: The procedure as well as the benefits and possible complications including infection and bleeding were explained to the patient. Informed consent was obtained. FLUOROSCOPY TIME (if supplied): (1 minute and 13 seconds) minutes/seconds. 4.61 mGy Injection Information: 10 cc of dilute MRI contrast. Number of images obtained: One TECHNIQUE: (All elements of maximal sterile barrier technique followed, including US elements as applicable) The patient was in the supine position. The overlying skin was prepped and draped in usual sterile fashion. Under direct fluoroscopic guidance, a 22-gauge spinal needle was placed into the knee joint. 10 cc of dilute MR contrast was injected. RAD/Arthrogram Knee IMPRESSION: Right knee arthrogram. CT scan will follow. Electronically Signed: Alex Walls MD at 14:20 EDT ,
[2024-03-05] MEDS: Lidocaine 2% (5ml sdv) 5 ML VIAL.MPF INFILT (13:15)
[2024-03-05] MEDS: Iopamidol 10 ML in Syringe 1 EACH 600 ML INTRAARTIC (13:17)
[2024-03-05] MEDS: Gadoterate Meglumine Diluted 10 ML, Iopamidol 5 ML, Lidocaine 1% (20 ml mdv) 5 ML, Epin... INTRAARTIC (13:17)
--- NOTE | 2024-03-05 14:00 | CT_ITS ---
CT LEFT LOWER EXTREMITY WITH 3-D IMAGING CLINICAL INDICATION: OSTEOARTHRITIS TECHNIQUE: Axial CT images of the LEFT lower extremity was performed with intra-articular contrast material. Coronal and sagittal reformats were provided. RADIATION DOSAGE (If Supplied By Facility): CTDIvol = ( 15.35 ) mGy, DLP = ( 530.30 ) mGycm COMPARISON: No relevant prior comparison study available CT scan dated May 24, 2022. FINDINGS: Bones: Mild degree of medial joint space narrowing. There is evidence of chondrocalcinosis. Joint space narrowing of the patellofemoral joint. Soft Tissues: The deep soft tissue structures are unremarkable. The superficial soft tissues are unremarkable without evidence of edema, hematoma, or foreign body. CT/Extremity Lower WITH Contrast IMPRESSION: Mild degree of joint space narrowing involving the medial compartment joint as well as the patellofemoral joint. Chondrocalcinosis of the medial meniscus. Electronically Signed: Alex Walls MD at 14:22 EDT ,
== END | disposition home or self-care (01) ==
PROVIDERS: PCP Family Medicine; Referring Provider Orthopaedic Surgery; Visit Provider Orthopaedic Surgery
DX: M17.12 Unilateral primary osteoarthritis, left knee (principal)
CPT/HCPCS: 27369; 73580; 73701; Q9967

== ENCOUNTER → 2024-05-08 | Outpatient (CLI) | payer MEDICARE, SELFPAY ==
[2024-05-08 17:33] LABS: Absolute Lymphocyte Count 1.27 X10^3/uL (0.83-4.51); Absolute Neutrophil Count 3.7 X10^3/uL (2.0-7.7); Basophil# 0.05 X10^3/uL; Basophil% 0.9 % (0-1); Eosinophil# 0.11 X10^3/uL; Hematocrit 43.3 % (40-54); Lymphocyte # 1.27 X10^3/ul (0.83-4.51); Lymphocyte % 22.6 % (19-41); Mean Corp Hgb Conc 32.3 g/dL (32-36); Mean Corpuscular Hgb 29.8 pg (27.0-32.0); Mean Corpuscular Volume 92.1 fL (80-94); Mean Platelet Vol. 10.3 fl (6.2-12.0); Monocyte# 0.41 X10^3/uL; Monocyte% 7.3 % (0-10); NRBC Flagged by Analyzer 0 % (0-5); Neutrophil # 3.74 X10^3/uL (2.7-7.7); Neutrophil % 66.5 % (47-70); Platelet Count 186 K/mm3 (150-450); RBC Distribution Width CV 13.5 % (11.6-14.6); RBC Distribution Width SD 45.4 fl (35.1-43.9); White Blood Count 5.6 K/mm3 (4.4-11.0)
[2024-05-08 17:44] LABS: ALB/GLOB Ratio 1.1 RATIO (0.9-2.4); AST(SGOT) 22 U/L (15-37); Alanine Aminotransfer ALT/SGPT 37 U/L (16-61); Albumin, Serum 3.6 g/dL (3.2-5.0); Alkaline Phosphatase 133 U/L (45-117); Anion Gap 7 (5-15); BUN 15 mg/dL (7-18); BUN/Creat Ratio 11.9 RATIO (10-20); Calcium,Total 9.7 mg/dL (8.5-10.1); Chloride 106 mmol/L (98-107); Creatinine, Serum 1.26 mg/dL (0.70-1.30); EST Glomerular Filtration Rate 60 mL/min (>60); Est Glom Filt Rate - Afr Amer 73 mL/min (>60); Globulin 3.3 g/dL (2.2-4.2); Glucose 140 mg/dL (74-106); Potassium 4.3 mmol/L (3.5-5.1); Protein, Total 6.9 g/dL (6.4-8.2); Sodium Level 139 mmol/L (136-145)
== END | disposition home or self-care (01) ==
LOC: MFPLAB 14:22
PROVIDERS: PCP Family Medicine; Visit Provider Family Medicine
DX: Z01.818 Encounter for other preprocedural examination (principal)
CPT/HCPCS: 36415; 80053; 85025

== ENCOUNTER → 2024-05-29 | Outpatient (CLI) | payer MEDICARE, SELFPAY ==
[2024-05-29 15:55] LABS: ALB/GLOB Ratio 1.1 RATIO (0.9-2.4); AST(SGOT) 20 U/L (15-37); Alanine Aminotransfer ALT/SGPT 37 U/L (16-61); Albumin, Serum 3.8 g/dL (3.2-5.0); Alkaline Phosphatase 129 U/L (45-117); Anion Gap 11 (5-15); BUN 17 mg/dL (7-18); BUN/Creat Ratio 12.1 RATIO (10-20); Calcium,Total 9.8 mg/dL (8.5-10.1); Chloride 105 mmol/L (98-107); Cholesterol 109 mg/dL (200); Creatinine, Serum 1.41 mg/dL (0.70-1.30); EST Glomerular Filtration Rate 53 mL/min (>60); Est Glom Filt Rate - Afr Amer 64 mL/min (>60); Globulin 3.5 g/dL (2.2-4.2); Glucose 122 mg/dL (74-106); High Density Lipoprotein 33 mg/dL; Potassium 3.7 mmol/L (3.5-5.1); Protein, Total 7.3 g/dL (6.4-8.2); Sodium Level 140 mmol/L (136-145); Triglycerides 136 mg/dL; Very Low Density Lipoprotein 27 mg/dL (5-40)
== END | disposition home or self-care (01) ==
LOC: MTLAB 11:16
PROVIDERS: PCP Family Medicine; Referring Provider Internal Medicine Cardiovascular Disease; Visit Provider Internal Medicine Cardiovascular Disease
DX: R73.9 Hyperglycemia, unspecified (principal); I11.0 Hypertensive heart disease with heart failure; I25.10 Atherosclerotic heart disease of native coronary artery without angina pectoris; R06.02 Shortness of breath
CPT/HCPCS: 36415; 80053; 80061

== ENCOUNTER 2024-06-11 08:34 | Observation (INO) | payer MEDICARE, SELFPAY ==
[2024-06-11] VITALS (10 sets, daily range): BP systolic 93–114; BP diastolic 52–70; PULSE 58–70; RESP 14–19; TEMP 36.3–36.6; O2SAT 93–99; BMI 46.5
[2024-06-11] MEDS: Lactated Ringers 1,000 ML 15 ML IV (06:31)
[2024-06-11 07:05] LABS: Bedside Glucose 124 mg/dL (74-106)
--- NOTE | 2024-06-11 07:20 | PCM.PRE.AN2 ---
ASA Classification* ASA Classification ASA Classification: 3 Assessment & Plan Anesthesia* Anesthesia Assessment Anesthesia Assessment: Discussed sedation and/or anesthesia options, risks, benefits, and alternatives with patient/parents/legal guardian/POA. Questions invited. The patient/parents/legal guardian/POA seems to understand and agrees to proceed with anesthesia plan. Reviewed the physical assessment, medical history, allergy history and patient home medications list prior to surgery/procedure/anesthetic and documented any changes. Performed airway and anesthesia risk assessments. Anesthesia Type Anesthesia Type: General Anesthesia Focused Assessment* Temperature: 97.5 F Pulse Rate: 63 Blood Pressure: 114/70 Respiratory Rate: 18 Pulse Ox: 99 Airway Assessment Mouth opens: >3 cm Mallampati Score: II Focused Labs Anesthesia Preop lab: CBC WBC 5.6 K/mm3 (4.4-11.0) 05/08/24 14:23 RBC 4.70 M/mm3 (4.6-6.2) 05/08/24 14:23 Hgb 14.0 g/dL (13.0-16.5) 05/08/24 14:23 Hct 43.3 % (40-54) 05/08/24 14:23 Plt Count 186 K/mm3 (150-450) 05/08/24 14:23 CHEMISTRY Potassium 3.7 mmol/L (3.5-5.1) 05/29/24 11:18 Sodium 140 mmol/L (136-145) 05/29/24 11:18 Magnesium 1.7 mg/dL (1.8-2.4) L 06/08/17 18:50 Phosphorus 1.5 mg/dL (2.5-4.9) L 03/12/14 08:00 BUN 17 mg/dL (7-18) 05/29/24 11:18 Creatinine 1.41 mg/dL (0.70-1.30) H 05/29/24 11:18 Glucose 122 mg/dL (74-106) H 05/29/24 11:18 POC Glucose 124 mg/dL (74-106) H 06/11/24 06:24 TSH 0.95 uIU/mL (0.358-3.74) 08/29/20 14:45 COAG PT 12.5 SECONDS (11.7-14.9) 02/18/21 19:13 Pre-Assessment Diagnosis/Proposed Procedure Planned Operative Procedure(s): LEFT KNEE DIAGNOSTIC ARTHROSCOPY REPAIR INDICTED Anesthesia History 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 When Was Last Pacemaker Check may 2019 09/23/20 14:25 QUESTION #4 FULL TEXT: You/Your Family Experience fever (hyperthermia) with Anesthesia Last Oral Intake Last Oral intake: Last Oral Intake NPO since 22:00 06/11/24 06:32 Meds taken in AM with sips of Yes 06/11/24 06:32 water? Meds patient instructed to RAMIPRIL 06/11/24 06:32 take am of surgery FERNANDO CARVEDILOL ISOSORBIDE PANTOPRAZOLE PONV PONV - fish conservationist: PONV - fish conservationist Female No 05/27/24 10:41 HX of Motion Sickness No 05/27/24 10:41 HX of N/V After Surgery No 05/27/24 10:41 Non-Smoker No 05/27/24 10:41 Duration of Surgery greater No 05/27/24 10:41 than 60 minutes Number of Risk Factors PONV Score Height & Weight Height & Weight: Anesthesia: Height & Weight Height 5 ft 8 in 06/11/24 06:32 Weight: 139 kg 06/11/24 06:32 Body Mass Index (BMI) 46.5 06/11/24 06:32 Respiratory Assessment Respiratory Assessment - fish conservationist: Respiratory Tract Infection Hx - fish conservationist Hx Respiratory Tract Infection No 05/27/24 10:41 STOP Sleep Apnea STOP Sleep Apnea - fish conservationist: STOP Sleep Apnea - fish conservationist Hx Hypertension Yes: CONTROLLED WITH MEDS 05/27/24 10:41 Hx Sleep Apnea Yes 05/27/24 10:41 CPAP Yes 05/27/24 10:41 BIPAP No 05/27/24 10:41 Do you snore loudly (louder than talking or can be heard Do you often feel tired/ fatigued/ sleepy during daytime? Has anyone observed you stop breathing during sleep? STOP Results Positive 05/27/24 10:41 QUESTION #5 FULL TEXT : Do you snore loudly (louder than talking or can be heard through closed doors)? Tobacco Use History Tobacco Use History - fish conservationist: Tobacco Use History - fish conservationist Tobacco Use Non-smoker 04/06/21 13:42 Smoking Status Former smoker 05/27/24 10:41 Hx Tobacco Use No 05/27/24 10:41 Years Smoking Packs Smoked per Day Smoking Cessation Date was No - quit smoking greater 05/27/24 10:41 within the last 15 years than 15 years ago Hx Smoking Cessation Date 12/02/82 05/27/24 10:41 Hx Smoking Cessation No 05/27/24 10:41 Counseling Hematologic Medial History Hematologic Hx - fish conservationist: Hematologic Medical Hx - patch sander Hx of Blood Transfusion Yes 05/27/24 10:41 Hx of Transfusion in last 3 No 05/27/24 10:41 Months Date of Last Transfusion (if within last 3 months) Ever experience any problems No 05/27/24 10:41 with transfusion(s)? Specify any problems Hx of Preganancy in last 3 N/A 05/27/24 10:41 Months Nurse Filling Out Transfusion DSCHRIBER 05/27/24 10:41 & Questions: Date: 05/27/24 05/27/24 10:41 Time: 10:45 05/27/24 10:41 Patient unable to answer at this time (ie. confused, unrespo /Reproduction History /Reproductive History - fish conservationist: /Reproductive Hx- fish conservationist Hx Now No 05/27/24 10:41 Gestational Age (in weeks): EDC: Hx Hx Para Hx Section SAB No 05/27/24 10:41 Active Medications Active Medications: Current Medications Generic Name Dose Route Start Last Admin Trade Name Freq PRN Reason Stop Dose Admin Cefazolin Sodium 2 gm/ Sodium 110 mls @ 150 mls/hr 06/11/24 07:30 Chloride IV 06/11/24 08:13 PREOP ONE Lactated Ringer's 1,000 mls @ 15 mls/hr 06/11/24 06:15 06/11/24 06:31 IV 15 mls/hr .Q48H MARYANNE Administration PFSH Medical History Wears hearing aid Wears glasses Wears contact lenses Wears partial dentures Diabetes Arthritis Anemia Back pain Injury of head and neck Difficulty swallowing Phantom pain after amputation of lower extremity Stuttering History of pain when walking History of edema History of echocardiogram History of stress test Cardiology follow-up encounter Lateral epicondylitis of left elbow Left elbow pain Over 65 years old COVID-19 Fracture, humerus Fall Cancer Alcohol abuse Depression Former smoker CPAP (continuous positive airway pressure) dependence Pacemaker TIA (transient ischemic attack) Esophageal foreign body Stroke-like symptoms Paresthesia of left upper extremity Renal calculi GERD (gastroesophageal reflux disease) Chest pain Mixed hyperlipidemia Essential hypertension Obesity (BMI 30-39.9) Surgical wound dehiscence Above knee amputation of right lower extremity Debility Lymphedema of right lower extremity Automatic implantable cardioverter-defibrillator in situ Chronic systolic congestive heart failure GERD (gastroesophageal reflux disease) Atherosclerotic heart disease of [place] coronary artery without angina pectoris Shortness of breath History of 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 [employer]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 Ischemic cardiomyopathy (~10/30/23) Atherosclerosis of coronary artery bypass graft without angina pectoris Gastroenteritis SIRS (systemic inflammatory response syndrome) Morbid obesity with BMI of 40.0-44.9, adult Effects of radiation Acute lymphangitis of right lower extremity ICD (implantable cardioverter-defibrillator) in place (~08/17/10) Lymphedema of Right Leg CAD (coronary artery disease) Chronic Systolic CHF - EF 45% GERD (gastroesophageal reflux disease) Home Medications ?Medication ?Instructions ?Recorded ?Last Taken ?Type aspirin 81 mg chewable tablet 81 mg PO QHS Heart health 06/09/17 06/10/24 History pantoprazole 40 mg tablet,delayed 40 mg PO DAILY gerd #30 tabs 01/08/20 06/11/24 Rx release gabapentin 300 mg capsule 300 mg PO QHS Rls 09/21/20 06/10/24 History temazepam 15 mg capsule 15 mg PO QHS PRN Sleep 09/21/20 06/10/24 History trazodone 50 mg tablet 50 mg PO QHS sleep 03/22/21 06/10/24 History escitalopram oxalate 20 mg tablet 20 mg PO DAILY 08/20/22 06/11/24 History nitroglycerin 0.4 mg sublingual 0.4 mg sublingual Q5M PRN chest 10/17/22 Unknown Rx tablet pain #25 tabs fexofenadine 180 mg tablet 180 mg PO DAILY 03/27/23 06/11/24 History (Fernando Allergy) potassium chloride 20 mEq 40 meq (2 x 20 mEq) PO QDAY 08/09/23 06/10/24 Rx tablet,extended release supplement #180 tabs tamsulosin 0.4 mg capsule 0.4 mg PO DAILY 08/30/23 06/10/24 History clopidogrel 75 mg tablet (Plavix) 75 mg PO DAILY blood clots #90 tabs 09/11/23 06/06/24 Rx furosemide 40 mg tablet 40 mg PO BID #180 tabs 09/27/23 06/10/24 Rx atorvastatin 80 mg tablet 80 mg PO QHS cholesterol #90 tabs 11/26/23 06/10/24 Rx carvedilol 25 mg tablet 25 mg PO BID heart #180 tabs 11/26/23 06/11/24 Rx isosorbide mononitrate 60 mg 60 mg PO BID blood pressure #180 11/26/23 06/11/24 Rx tablet,extended release 24 hr tabs ramipril 10 mg capsule 10 mg PO DAILY #90 caps 04/06/24 06/11/24 Rx Farxiga 10 mg tablet 10 mg PO DAILY #30 tabs 05/21/24 06/10/24 Rx (dapagliflozin propanediol) multivitamin (Daily Multi-Vitamin 1 tab PO DAILY 05/27/24 06/06/24 History tablet) Allergy/AdvReac Type Severity Reaction Status Date / Time No Known Allergies Allergy Verified 05/27/24 10:30 Family History Mother CAD (coronary artery disease) Father CVA (cerebral vascular accident) Myocardial infarction Brother CAD (coronary artery disease) Hx of CABG Brother CAD (coronary artery disease) Hx of CABG Other Family history of CVA Surgical History Hx of lithotripsy History of shoulder surgery History of cardiac catheterization Hx of colonoscopy Hx of esophagogastroduodenoscopy Presence of stent in coronary artery (~10/15/13) Postsurgical aortocoronary bypass status (~06/01/05) Social History Smoking Status: Former smoker how long ago did patient quit smokin alcohol intake: current alcohol intake frequency: a few times a month substance use type: does not use caffeine: Yes Review of Systems (Anesthesia) ROS Narrative System reviewed and no additional complaints, except as documented.
[2024-06-11] MEDS: Cefazolin 3 GM in 0.9% Normal Saline (100mL Bag) 100 ML IV (07:30)
[2024-06-11] MEDS: Epinephrine (1 mg/ml) 1 MG/ML VIAL ×2 (07:56)
[2024-06-11] MEDS: Bupiv/Epi 0.25% 30 ML Vial (07:56)
--- NOTE | 2024-06-11 08:27 | PCM.POST.ANE ---
Anesthesia: Postop Eval I Current Vital Signs Temperature: 97.4 F Pulse Rate: 64 Blood Pressure: 108/61 Respiratory Rate: 14 Pulse Ox: 94 Oxygen Delivery Method: Room Air Assessment Airway patent: Yes Spontaneous unlabored respirations: Yes Mental status: Awake nausea: No Vomiting: No Anesthesia Complication: No Fluid Hydration Crystalloid volume administer (ml): 1,000 Total IV fluid infused: 1,000 Progress Note Anesthesia document: Postop Eval 1 completed: Yes
--- NOTE | 2024-06-11 08:28 | PCM.OPRPT ---
Report of Operation Date of Procedure: 06/11/24 Description of Surgical Findings:: Preoperative diagnosis: Left knee suspected internal derangement Postoperative diagnosis: 1. Left knee parrot-beak posterior horn medial meniscus tear 2. Grade IV chondromalacia patellofemoral 3. Grade III chondromalacia medial femoral condyle 4. Hypertrophic fat pad right knee with fat pad impingement Procedure: 1. Left knee diagnostic arthroscopy 2. Left knee partial medial meniscectomy, chondroplasty medial femoral condyle 3. Arthroscopic left knee fat pad debridement Surgeon: Renny James DO Microstrategy Developer: Shasha Fuentes PA-C Anesthesia: General LMA Anesthesiologist: Dr. Browne Estimated blood loss: 2 cc IV fluids: Per anesthesia record Urine output: None recorded Specimen: None Implants: None Packing/drains: None Complications: None apparent Preoperative indications: This is a 69-year-old male seen in the outpatient setting for left knee pain. Patient has multiple comorbidities including CAD, history of pacemaker and defibrillator, ischemic cardiomyopathy, diabetes mellitus. He had minimal arthritic changes on x-ray. He underwent multiple corticosteroid injection of the left knee with only intermittent pain relief. 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 He felt that he is unable to live with the current pain of his left knee and wished to explore surgical options. Due to his cardiac devices, we are unable to obtain an MRI of the left knee. A CT arthrogram of the left knee demonstrated mild degenerative changes with no obvious internal derangement. Obviously, the imaging is limited and I suspected internal derangement in the form of likely meniscus injury/tearing. After deliberation, we both felt if deemed safe by his medical providers a diagnostic arthroscopy was indicated. I reviewed the risks, benefits, and alternatives to the procedure.He agreed to proceed. Risks included but were not limited to bleeding, infection, loss of life or limb, need for additional surgery, persistent pain, posttraumatic arthritis, neurovascular injury, stiffness, DVT or PE, risk of anesthesia. Informed consent obtained. Description of procedure: Patient identified preoperative holding her by name, correct number, and date of . The operative extremity was marked. All questions were answered to the patient satisfaction. At time of his procedure, patient brought the operative suite positioned supine on standard operating table. All bony prominences well-padded. General anesthesia was administered and LMA was placed. A well-padded pneumatic tourniquet was applied to the operative upper thigh. An arthroscopic post was placed along the lateral aspect of the operative thigh. We prepped and draped the left lower extremity in normal, sterile peak fashion. We performed timeout with all parties in attendance in agreement with the side, site, operation be performed. 3 g Ancef was administered by anesthesia staff prior to tourniquet ablation. I then exsanguinated left lower extremity with Esmarch bandage. Tourniquet was inflated to 250 mmHg for approximately 15 minutes. Esmarch was removed. Standard anterolateral portal was then established 90 degrees of flexion. Blunt tipped trocar was used to enter the knee joint. Knee was filled with normal saline with epinephrine. Arthroscope was then introduced. Diagnostic arthroscopy of the patellofemoral joint demonstrated grade 4 patellofemoral cartilage chondromalacia diffusely. Medial lateral gutter was unremarkable. Hypertrophic fat pad was noted and appeared to be impinging in all 3 compartments. Valgus stress was applied the knee to anterior the medial compartment with the knee in extension. Anterior medial portal was established under direct visualization. Medial compartment was then examined. Grade III chondromalacia was noted the medial femoral condyle. Parrot-beak tear of the posterior horn was noted. Partial medial meniscectomy was performed in standard fashion with combination of baskets and arthroscopic shaver. Stable chondral rim was established. Abrasion chondroplasty was performed of unstable chondral flaps and medial femoral condyle. Fat pad was excised with the arthroscopic shaver. ACL was probed and was pristine. Lateral compartment appeared well-preserved with minimal degenerative changes no obvious meniscus tear. The knee was thoroughly lavaged after debridement of the fat pad with the arthroscopic shaver. The knee was anesthetized with 30 cc total quarter percent bupivacaine with epinephrine. Portal sites were closed in interrupted [id number] fashion with 3-0 nylon suture. Bulky sterile compression system was applied. Tourniquet was deflated. Patient was safely awoken the operative suite and extubated. He was transferred to his gurney and subsequent to PACU in stable condition. Postoperative plan: Weightbearing, range of motion as tolerated operative knee Patient lives at home alone. Given his comorbidities, dependency on the left lower extremity for transfers I recommended overnight observation for medical monitoring and early convalescence. Patient will work with physical and occupational therapies while he is in the hospital. I will ask the hospitalist to assist in medical care postoperatively due to the patient's multiple comorbidities. We will restart his Plavix and aspirin today. Plan for discharge home tomorrow. Follow-up in 2 weeks for suture removal Ice and elevation.
--- NOTE | 2024-06-11 08:38 | POSTOPAN2_ITS ---
Anesthesia Postop Eval I Sum Postop Eval Completion status Anesthesia document: Postop Eval 1 completed: Yes Anesthesia Postop Eval I Summary Anesthesia Postop Eval I Summary: Anesthesia Postop Eval I: Assessment Summary Airway patent Yes 06/11/24 08:28 [email or web address] Spontaneous unlabored Yes 06/11/24 08:28 [email or web address] respirations Mental status Awake 06/11/24 08:28 [email or web address] nausea No 06/11/24 08:28 [email or web address] Vomiting No 06/11/24 08:28 [email or web address] Anesthesia Postop Eval I: Fluid Summary Crystalloid volume administer 1,000 06/11/24 08:28 [email or web address] (ml) Colloids volume administered ( ml) Blood Product volume administered (ml) Total IV fluid infused 1,000 06/11/24 08:28 [email or web address] Anesthesia Postop Eval I: Summary Notes Anesthesia Complication No 06/11/24 08:28 [email or web address] [email or web address] Anesthesia Complication Comment: Post-operative progress note Anesthesia: Postop Eval II Evaluation Mental status: Awake Pain Level: 0 nausea: No Vomiting: No
--- NOTE | 2024-06-11 08:38 | PCM.POSTANE2 ---
Anesthesia Postop Eval I Sum Postop Eval Completion status Anesthesia document: Postop Eval 1 completed: Yes Anesthesia Postop Eval I Summary Anesthesia Postop Eval I Summary: Anesthesia Postop Eval I: Assessment Summary Airway patent Yes 06/11/24 08:28 CAR REPAIRER [email or web address] Spontaneous unlabored Yes 06/11/24 08:28 CAR REPAIRER [email or web address].[email or web address] respirations Mental status Awake 06/11/24 08:28 CAR REPAIRER [email or web address] nausea No 06/11/24 08:28 CAR REPAIRER [email or web address] Vomiting No 06/11/24 08:28 CAR REPAIRER [email or web address] Anesthesia Postop Eval I: Fluid Summary Crystalloid volume administer 1,000 06/11/24 08:28 CAR REPAIRER [email or web address] (ml) Colloids volume administered ( ml) Blood Product volume administered (ml) Total IV fluid infused 1,000 06/11/24 08:28 CAR REPAIRER [email or web address] Anesthesia Postop Eval I: Summary Notes Anesthesia Complication No 06/11/24 08:28 CAR REPAIRER [email or web address].[email or web address] Anesthesia Complication Comment: Post-operative progress note Anesthesia: Postop Eval II Evaluation Mental status: Awake Pain Level: 0 nausea: No Vomiting: No
[2024-06-11] MEDS: Acetaminophen 500 MG Tablet 1000 MG PO ×2 (14:14→22:31)
[2024-06-11] MEDS: Clopidogrel Bisulfate 75 MG Tablet PO (14:15)
--- NOTE | 2024-06-11 16:53 | PCM.PN.HOSP ---
Subjective Subjective Patient was seen and examined today at request of orthopedic surgery, he underwent a left knee diagnostic arthroscopy with a left knee partial medial meniscectomy, chondroplasty of the medial femoral condyle and arthroscopic left knee pad debridement. At the time of my examination, patient appears comfortable, he is alert and able answer questions appropriately. 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 Objective Data Objective Data Vital Signs: Vital Signs Temp Pulse Resp BP Pulse Ox O2 Del Method 97.7 F L 65 19 H 105/62 97 Room Air 06/11/24 12:55 06/11/24 12:55 06/11/24 12:55 06/11/24 12:55 06/11/24 12:55 06/11/24 14:25 Oxygen Delivery Method Room Air Weight: 139 kg Body Mass Index (BMI) 46.5 Intake & Output: Intake and Output for Last 24 Hours 06/09/24 06/10/24 06/11/24 23:59 23:59 23:59 Intake Total 197.25 / 197.25 Balance 197.25 / 197.25 Lab / Micro Data Labs: Laboratory Results - last 24 hr 06/11/24 06:24: POC Glucose 124 H Physical Exam Const alert, oriented x3 and no apparent distress Constitutional Narrative: Patient is morbidly obese General Appearance: cooperative, well kempt and well developed Orientation / Consciousness: awake, oriented to person, oriented to place and oriented to time HEENT normocephalic, head/scalp atraumatic and moist oral mucous membranes Eyes PERRL, EOMs intact bilaterally and conjunctivae normal Neck supple, no JVD and thyroid normal General: trachea midline Resp normal respiratory effort, no retractions, no use of accessory muscles and clear to auscultation bilaterally Auscultation: Negative for rales, rhonchi or wheezes Cardio regular rate, regular rhythm, S1 normal heart sound, S2 normal heart sound, no murmurs, no rub and no gallops GI normal to inspection, nondistended, normoactive bowel sounds, soft to palpation, non-tender and non-distended Extremity Extremity Narrative: Remote right ixkua-jmo-bpoa amputation noted Skin no rashes or lesions noted General Skin Exam: no breakdown Neuro oriented x3, CN's II-XII intact bilaterally, no focal motor deficits and no sensory deficits noted Sensorium / Orientation: awake and alert Speech: speech normal Psych affect normal Assessment & Plan Assessment/Plan (1) CAD (coronary artery disease): QUALIFIERS: Coronary Disease-Associated Artery/Lesion type: unspecified vessel or lesion type [place] vs. transplanted heart: unspecified whether [place] or transplanted heart Associated angina: angina presence unspecified Qualified Code(s): I25.10 - Atherosclerotic heart disease of [place] coronary artery without angina pectoris PLAN: Plan 1. Coronary artery disease-patient will remain on his present medications #2 hyperglycemia-prediabetes versus type 2 diabetes-I have elected not to order fingerstick blood sugars on the patient at this time, he most likely will be discharged tomorrow morning home, patient will receive Jardiance here in place of his home [facility] #3 morbid obesity-complicates care, management, recovery, and prognosis #4 essential hypertension-patient will remain on his present medication Total clinical time spent by myself addressing the patient's medical issues, reviewing all of his data, and collaborating with patient's care team: 30 minutes Charges/Coding Visit Charges Office Visits / Consults: [id number] OV L4 Est 30min
[2024-06-11] MEDS: Empagliflozin 25 MG Tablet PO (18:19)
[2024-06-11] MEDS: 0.9% Saline Lock 10 ML Syringe IV (18:24)
[2024-06-11] MEDS: Aspirin 81 MG TAB.CHEW PO (22:31)
[2024-06-11] MEDS: Carvedilol 25 MG Tablet PO (22:31)
[2024-06-11] MEDS: Gabapentin 300 MG Capsule PO (22:31)
[2024-06-11] MEDS: Isosorbide Mononitrate 60 MG Tablet PO (22:32)
[2024-06-11] MEDS: Furosemide 40 MG Tablet PO (22:32)
[2024-06-11] MEDS: traZODone 50 MG Tablet PO (22:32)
[2024-06-11] MEDS: Atorvastatin Calcium 80 MG Tablet PO (22:32)
[2024-06-12 06:01] VITALS: O2SAT 96
[2024-06-12] MEDS: Acetaminophen 500 MG Tablet 1000 MG PO (06:04)
[2024-06-12 06:08] VITALS: BP 105/57; PULSE 59; RESP 16; TEMP 36.7; O2SAT 98
--- NOTE | 2024-06-12 07:46 | PCM.PN.ORT ---
Subjective Subjective Patient is s/p left knee arthroscopy with partial medial meniscectomy with Dr. James 06/11/2024. He is observed under observation due to above knee amputation on the right which is remote due to history of cancer. Patient has been stabilized and seen by medicine and cleared for discharge home today. Patient resting comfortably in bed. Rates pain 0/ 10 at rest. With movement 1/10. States taking Tylenol and oxycodone and ice help to relieve pain. Patient has been up with therapy. Walking with the assit of a walker. Afebrile, no chest pain, shortness of breath, negative calf pain/ erythema, and no other signs of DVT. Objective Data Objective Data Vital Signs: Vital Signs Temp Pulse Resp BP Pulse Ox O2 Del Method 98.0 F 59 L 16 105/57 L 98 Room Air 06/12/24 06:08 06/12/24 06:08 06/12/24 06:08 06/12/24 06:08 06/12/24 06:08 06/12/24 06:08 Oxygen Delivery Method Room Air Weight: 139 kg Body Mass Index (BMI) 46.5 Intake & Output: Intake and Output for Last 24 Hours 06/10/24 06/11/24 06/12/24 23:59 23:59 23:59 Intake Total 557.25 / 557.25 Output Total 1100 / 2100 1900 / 1900 Balance -542.75 / -1542.75 -1900 / -1900 Physical Exam Narrative Patient resting comfortably in bed No signs of acute distress Satting well on room air Limb is warm to touch, Sensation intact throughout entire lower extremity, including saphenous, sural, superficial and deep peroneal, and tibial distribution. DP/PT pulses bounding. Dorsiflexion/plantarflexion strength 5/5 Dressing clear dry intact Calf nontender to palpation, no erythema, no edema. Negative Homans Assessment & Plan Assessment/Plan (1) S/P arthroscopic partial medial meniscectomy of left knee: PLAN: 1. Will continue PT today. Weightbearing as tolerated 2. plan for discharge this afternoon following PT 3. Patient will follow up for post op appointment in 2 weeks as previously scheduled 4. Patient has outpatient PT appointment as previously scheduled 5. WBC 5.6 no acute reactive leukocytosis 6. H/H 14.0/43.3: No post operavtive anemia 7. DVT prophylaxis : Aspirin 1 mg twice daily and Plavix daily x 2 weeks. He takes aspirin and Plavix at baseline will return to this after 2 weeks. 8. Pain control: patient instructed to take tylenol 500mg 2 tablets TID. and oxycodone 1-2 tablets every 4-6 hours only as needed for pain control. 9. ok to remove post op dressing. post op day 1
--- NOTE | 2024-06-12 07:59 | DCINST_ITS ---
Discharge Instructions Diet Discharge Diet: No restrictions Activity Discharge Activity: Return to Normal Activity May shower in (days): 3 Weight Bearing Status: Weight bearing as tolerated Dressing / Incision Call your doctor if your incision/area has: Continuous Slow Oozing, Sudden Increased Bleeding, Increased Pain/ Swelling, Increased Redness, Foul Smelling Discharge and Swelling at the incision site Call your doctor if you observe: Fever of 101 or Higher, Change in Color, Inability to urinate, Inability to have a bowel movement, Using more than 1 pad per hour, Dizziness, Chest pain, Calf discomfort and Uncontrolled pain Remove Dressing in: 1 day Cleanse incision/area with: Soap & Water and Keep Dressing Clean & Dry Follow Up Care When: In 2 weeks as previously scheduled. Test Results: Test results from this visit will be discussed in further detail at your follow- up appointment, if applicable. Discharge Plan Admission Admit Date/Time: 06/11/24 08:34 Attending Provider: Renny James Primary Care Provider: Speedy Boswell Consulting Providers: Jay Cruz Discharge Orders/Prescriptions Prescriptions: New acetaminophen 500 mg Tablet 1,000 mg PO Q8 Qty: 180 0RF aspirin 81 mg Tablet,Chewable 81 mg PO BID 14 Days Qty: 28 0RF Continued multivitamin [Daily Multi-Vitamin] Tablet 1 tab PO DAILY nitroglycerin 0.4 mg tablet, sublingual 0.4 mg sublingual Q5M PRN (Reason: chest pain) Qty: 25 3RF Rx Instructions: do not exceed 3 doses per episode Held aspirin 81 MG tablet,chewable 81 mg PO QHS Hold Instructions: Resume on 06/26/24. Patient Comments: TAKES WITH NIASPAN TO PREVENT HOT FLASHES Rx Instructions: will stop 5 day prior No Action pantoprazole 40 mg tablet,delayed release (DR/EC) 40 mg PO DAILY Qty: 30 11RF gabapentin 300 mg capsule 300 mg PO QHS temazepam 15 mg capsule 15 mg PO QHS PRN (Reason: Sleep) trazodone 50 mg tablet 50 mg PO QHS escitalopram oxalate 20 mg tablet 20 mg PO DAILY fexofenadine [Romana Allergy] 180 mg tablet 180 mg PO DAILY tamsulosin 0.4 mg capsule 0.4 mg PO DAILY Patient Comments: TAKE 1 CAPSULE BY MOUTH EVERY DAY dapagliflozin propanediol [Farxiga] 10 mg tablet 10 mg PO DAILY Qty: 30 11RF potassium chloride 20 mEq tablet extended release 40 meq PO QDAY Qty: 180 3RF clopidogrel [Plavix] 75 mg tablet 75 mg PO DAILY Qty: 90 3RF Patient Comments: WILL STOP 5 DAYS PRIOR TO OR furosemide 40 mg tablet 40 mg PO BID Qty: 180 3RF Rx Instructions: water retention atorvastatin 80 mg tablet 80 mg PO QHS Qty: 90 3RF carvedilol 25 mg tablet 25 mg PO BID Qty: 180 3RF isosorbide mononitrate 60 mg tablet extended release 24 hr 60 mg PO BID Qty: 180 3RF ramipril 10 mg capsule 10 mg PO DAILY Qty: 90 4RF Referrals / Follow Up: Speedy Boswell MD [Primary Care Provider] -
[2024-06-12 08:05] VITALS: BP 134/72; PULSE 62; RESP 18; TEMP 36.4; O2SAT 96
--- NOTE | 2024-06-12 09:21 | CASEMGMT ---
JUANCHO POON Assessment Face to Face with patient for initial transition planning/care coordination assessment. JUANCHO POON introduced self and role at [facility], pt voices understanding. Pt is A&Ox4 and is resting comfortably in bed and is calm. Care providers, pharmacy, and demographics verified. Admitting dx: Post Op Knee Arthroplasty LACE Strata: 2 PCP: Speedy Boswell Specialists: Jay MONGE (ENT), Glory (Uro) Preferred Pharmacy: [facility] Insurance: [employer] [facility] Prescription Benefit: Yes LNOK: Maddy Ruiz (Daughter), Gm Ruiz (Son) Living Arrangements: Pt lives alone in a ground level apartment with a ramp to enter ADLs/IADLs: Ind Transportation: Self, Friend will drive the pt home today DME: Tub Bench, Scooter, Prosthetic, Rollator, Pawn Broker HHC/SNF: States Hx of HHC but cannot recall the name of the agency. States Hx at [facility] Pt?s goal: Home with OP Tx Plan: Home with OP Tx. Pt has an appt scheduled at [facility] on 06/18 and denies further needs. Pt states that he feels safe discharging home with his friend today and plans to f/u with OP Tx. Pt denies further questions or concerns and is ready for DC today. Trish Biswas RN, CM
--- NOTE | 2024-06-12 09:54 | CASEMGMT ---
Social Work SW met with pt to discuss advance directives.? Pt confirms he has completed a living will and health care POA naming Maddy, daughter..? Pt notified that documents are not on file at [facility] and SW requested they be brought in for scanning into the EMR.? MANUEL Elliott
--- NOTE | 2024-06-12 10:01 | PHA.DC_ITS ---
Pharmacy [facility] has performed discharge medication reconciliation and counseling for this patient. The patient's discharge medication list was reviewed for discrepancies and discrepancies were resolved. The patient was counseled on the following discharge medications and changes in medications for homegoing were reviewed. The Reason for Use, instructions for use, and potential side effects were reviewed for all new medications. The patient's questions regarding all of their medications were answered. 1. Aspirin 81 mg PO BID 2. Acetaminophen 1000 mg PO Q8H The patient was able to verbally demonstrate an understanding of their discharge medications. The patient was counselled on new medications by international student counselor Harrison. Medications at Discharge Home Medications aspirin 81 mg chewable tablet 81 mg PO QHS Heart health 06/09/17 pantoprazole 40 mg tablet,delayed release 40 mg PO DAILY gerd #30 tabs 01/08/20 gabapentin 300 mg capsule 300 mg PO QHS Rls 09/21/20 temazepam 15 mg capsule 15 mg PO QHS PRN Sleep 09/21/20 trazodone 50 mg tablet 50 mg PO QHS sleep 03/22/21 escitalopram oxalate 20 mg tablet 20 mg PO DAILY 08/20/22 nitroglycerin 0.4 mg sublingual tablet 0.4 mg sublingual Q5M PRN chest pain #25 tabs 10/17/22 fexofenadine 180 mg tablet (Romana Allergy) 180 mg PO DAILY 03/27/23 potassium chloride 20 mEq tablet,extended release 40 meq (2 x 20 mEq) PO QDAY supplement #180 tabs 08/09/23 tamsulosin 0.4 mg capsule 0.4 mg PO DAILY 08/30/23 clopidogrel 75 mg tablet (Plavix) 75 mg PO DAILY blood clots #90 tabs 09/11/23 furosemide 40 mg tablet 40 mg PO BID #180 tabs 09/27/23 atorvastatin 80 mg tablet 80 mg PO QHS cholesterol #90 tabs 11/26/23 carvedilol 25 mg tablet 25 mg PO BID heart #180 tabs 11/26/23 isosorbide mononitrate 60 mg tablet,extended release 24 hr 60 mg PO BID blood pressure #180 tabs 11/26/23 ramipril 10 mg capsule 10 mg PO DAILY #90 caps 04/06/24 Farxiga 10 mg tablet (dapagliflozin propanediol) 10 mg PO DAILY #30 tabs 05/21/24 multivitamin (Daily Multi-Vitamin tablet) 1 tab PO DAILY 05/27/24 acetaminophen 500 mg tablet 1,000 mg (2 x 500 mg) PO Q8 #180 tabs 06/12/24 aspirin 81 mg chewable tablet 81 mg PO BID 2 weeks #28 tabs 06/12/24
== END 2024-06-12 10:28 | disposition home or self-care (01) ==
LOC: SDC 09:02 → MS3 09:02
PROVIDERS: Admitting Provider Student in an Organized Health Care Education/Training Program; PCP Family Medicine; Referring Provider Student in an Organized Health Care Education/Training Program; Visit Provider Student in an Organized Health Care Education/Training Program
PROC: (CPT 29870; principal; 2024-06-11 07:10)
DX: M23.222 Derangement of posterior horn of medial meniscus due to old tear or injury, left knee (principal); Z89.611 Acquired absence of right leg above knee; I11.0 Hypertensive heart disease with heart failure; I50.22 Chronic systolic (congestive) heart failure; E66.01 Morbid (severe) obesity due to excess calories; Z68.42 Body mass index [BMI] 45.0-49.9, adult; E11.9 Type 2 diabetes mellitus without complications; M17.12 Unilateral primary osteoarthritis, left knee; I25.5 Ischemic cardiomyopathy; Z95.810 Presence of automatic (implantable) cardiac defibrillator; M22.42 Chondromalacia patellae, left knee; M25.862 Other specified joint disorders, left knee; Z79.899 Other long term (current) drug therapy; Z79.82 Long term (current) use of aspirin; Z79.02 Long term (current) use of antithrombotics/antiplatelets; K21.9 Gastro-esophageal reflux disease without esophagitis; Z95.1 Presence of aortocoronary bypass graft
CPT/HCPCS: 29881; 01400; 82962; 94668; 97162; 97166; 99221; J7120; A4216; G0378; J2405

== ENCOUNTER 2024-06-29 19:58 | Emergency (ER) | payer MEDICARE, SELFPAY ==
[2024-06-29 20:00] VITALS: BP 134/81; PULSE 71; RESP 18; TEMP 36.2; O2SAT 98
[2024-06-29 20:09] VITALS: BMI 47.2
--- NOTE | 2024-06-29 20:15 | RAD_ITS ---
INDICATION: Trauma, shoulder injury and pain EXAMINATION/TECHNIQUE: X-RAY - RIGHT XR Shoulder Min 2 Views 4 VIEWS COMPARISON: 04/26/2018 FINDINGS: SOFT TISSUES: No soft tissue swelling or gas. No radiopaque foreign body. BONES/JOINTS: No acute fracture. Joint spaces anatomically aligned with degenerative changes. No sclerotic or destructive changes observed. RAD/Shoulder min 2 Views IMPRESSION: No acute bony abnormality. Electronically Signed: Francisco Javier Donaldson MD at 21:50 EDT ,
--- NOTE | 2024-06-29 20:15 | RAD_ITS ---
INDICATION: Trauma, knee injury with pain EXAMINATION/TECHNIQUE: X-RAY - LEFT XR Knee Complete 4 Views or More 4 VIEWS COMPARISON: None. FINDINGS: SOFT TISSUES: No soft tissue swelling or gas. No radiopaque foreign body. BONES/JOINTS: No acute fracture. Joint spaces anatomically aligned with mild tricompartmental degenerative changes. No sclerotic or destructive changes observed. RAD/Knee 4 or More Views IMPRESSION: Degenerative changes without acute bony abnormality. Electronically Signed: Francisco Javier Donaldson MD at 21:40 EDT ,
--- NOTE | 2024-06-29 20:25 | EDS_ITS ---
HPI HPI - Fall History of Present Illness Chief Complaint: Fall Detail of Chief Complaint: Patient fell forward injuring his left knee and right shoulder Occured/Mechanism Occurred: Days Narrative: Patient states he was in the far commode. The light sensor detected no motion and went black. Patient thought he was grabbing onto the guard rail and fell forward landing on his left knee and hitting his right shoulder against the stall door. Usually ambulates: - (Able to ambulate short distances otherwise has a motorized wheelchair) Pain/Injury Location: Right shoulder and left knee Quality of Pain: Dull and Aching Current Severity: Mild Maximum Severity: Moderate Worsened by: Palpation and movement Relieved by: Nothing Associated Symptoms Associated Symptoms: Negative for Parasthesias, Weakness, Loss of function, Inability to ambulate, Loss of consciousness or Amnesia Narrative Narrative: Patient is a 69-year-old male. Patient has history of coronary disease, hypertension, ischemic cardiomyopathy, mixed hyperlipidemia, essential hypertension who had a mechanical fall this past weekend. Patient states he was in the commode. The lights went out. He thought he was reaching for a rail. There was no rail. He fell forward injuring his right shoulder and left knee. He is concerned that one a stitch at the medial arthroscopy site ruptured. He had arthroscopy performed by Dr. James 2 weeks ago. He had a meniscal injury detected. He denies head trauma. Denies loss of conscious. Night being amnestic. He denied being dazed. Denies neck pain. He complains of pain in the right shoulder. He denies pain in the right elbow, wrist hand or digits. He does complain of pain left knee. There is swelling and discoloration of the left knee. Prior similar symptoms: No Recent Illness/Hospitalization: Yes [facility] Medical History Coronary atherosclerosis of bypass graft Wears hearing aid Wears glasses Wears contact lenses Wears partial dentures Diabetes Arthritis Anemia Back pain Injury of head and neck Difficulty swallowing Phantom pain after amputation of lower extremity Stuttering History of pain when walking History of edema History of echocardiogram History of stress test Cardiology follow-up encounter Lateral epicondylitis of left elbow Left elbow pain Over 65 years old COVID-19 Fracture, humerus Fall Cancer Alcohol abuse Depression Former smoker CPAP (continuous positive airway pressure) dependence Pacemaker TIA (transient ischemic attack) Esophageal foreign body Stroke-like symptoms Paresthesia of left upper extremity Renal calculi GERD (gastroesophageal reflux disease) Chest pain Mixed hyperlipidemia Essential hypertension Obesity (BMI 30-39.9) Surgical wound dehiscence Above knee amputation of right lower extremity Debility Lymphedema of right lower extremity Automatic implantable cardioverter-defibrillator in situ Chronic systolic congestive heart failure GERD (gastroesophageal reflux disease) Atherosclerotic heart disease of [place] coronary artery without angina pectoris Shortness of breath History of 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 senior care use of drug Ischemic cardiomyopathy (~10/30/23) Atherosclerosis of coronary artery bypass graft without angina pectoris Gastroenteritis SIRS (systemic inflammatory response syndrome) Morbid obesity with BMI of 40.0-44.9, adult Effects of radiation Acute lymphangitis of right lower extremity ICD (implantable cardioverter-defibrillator) in place (~08/17/10) Lymphedema of Right Leg CAD (coronary artery disease) Chronic Systolic CHF - EF 45% GERD (gastroesophageal reflux disease) Home Medications ?Medication ?Instructions ?Recorded ?Last Taken ?Type aspirin 81 mg chewable tablet 81 mg PO QHS Heart health 06/09/17 06/10/24 History pantoprazole 40 mg tablet,delayed 40 mg PO DAILY gerd #30 tabs 01/08/20 06/11/24 Rx release gabapentin 300 mg capsule 300 mg PO QHS Rls 09/21/20 06/10/24 History temazepam 15 mg capsule 15 mg PO QHS PRN Sleep 09/21/20 06/10/24 History trazodone 50 mg tablet 50 mg PO QHS sleep 03/22/21 06/10/24 History escitalopram oxalate 20 mg tablet 20 mg PO DAILY 08/20/22 06/11/24 History nitroglycerin 0.4 mg sublingual 0.4 mg sublingual Q5M PRN chest 10/17/22 Unknown Rx tablet pain #25 tabs fexofenadine 180 mg tablet 180 mg PO DAILY 03/27/23 06/11/24 History (Romana Allergy) potassium chloride 20 mEq 40 meq (2 x 20 mEq) PO QDAY 08/09/23 06/10/24 Rx tablet,extended release supplement #180 tabs tamsulosin 0.4 mg capsule 0.4 mg PO DAILY 08/30/23 06/10/24 History clopidogrel 75 mg tablet (Plavix) 75 mg PO DAILY blood clots #90 tabs 09/11/23 06/06/24 Rx furosemide 40 mg tablet 40 mg PO BID #180 tabs 09/27/23 06/10/24 Rx atorvastatin 80 mg tablet 80 mg PO QHS cholesterol #90 tabs 11/26/23 06/10/24 Rx carvedilol 25 mg tablet 25 mg PO BID heart #180 tabs 11/26/23 06/11/24 Rx isosorbide mononitrate 60 mg 60 mg PO BID blood pressure #180 11/26/23 06/11/24 Rx tablet,extended release 24 hr tabs ramipril 10 mg capsule 10 mg PO DAILY #90 caps 04/06/24 06/11/24 Rx Farxiga 10 mg tablet 10 mg PO DAILY #30 tabs 05/21/24 06/10/24 Rx (dapagliflozin propanediol) multivitamin (Daily Multi-Vitamin 1 tab PO DAILY 05/27/24 06/06/24 History tablet) acetaminophen 500 mg tablet 1,000 mg (2 x 500 mg) PO Q8 #180 06/12/24 Unknown Rx tabs aspirin 81 mg chewable tablet 81 mg PO BID 2 weeks #28 tabs 06/12/24 Unknown Rx prednisone 20 mg tablet 40 mg (2 x 20 mg) PO DAILY #8 06/29/24 Unknown Rx TABLETS Allergy/AdvReac Type Severity Reaction Status Date / Time No Known Allergies Allergy Verified 06/29/24 19:59 Family History Mother CAD (coronary artery disease) Father CVA (cerebral vascular accident) Myocardial infarction Brother CAD (coronary artery disease) Hx of CABG Brother CAD (coronary artery disease) Hx of CABG Other Family history of CVA Surgical History H/O heart artery stent Hx of lithotripsy History of shoulder surgery History of cardiac catheterization Hx of colonoscopy Hx of esophagogastroduodenoscopy Presence of stent in coronary artery (~10/15/13) Postsurgical aortocoronary bypass status (~06/01/05) Social History Smoking Status: Former smoker how long ago did patient quit smokin alcohol intake: current alcohol intake frequency: a few times a month substance use type: does not use caffeine: Yes ROS ROS ED Constitutional Constitutional ED: Denies chills, fever(s), subjective, sweats or weight loss Eyes Eyes: Denies blurry vision or change in vision Cardiovascular Cardiovascular: Denies chest pain or palpitations Respiratory/Chest Respiratory/Chest: Denies cough, dyspnea or dyspnea on exertion Gastrointestinal Gastrointestinal: Denies abdominal pain, melena, nausea or vomiting Genitourinary Genitourinary ED: Denies hematuria Musculoskeletal Musculoskeletal: Reports other Details: Detailed HPI narrative ; Denies arthralgias, back pain, myalgias or neck pain Integumentary Reports Abrasions Neurologic Neurologic: Denies headache(s), paresthesias or weakness Psychiatric Psychiatric: Denies anxiety Hematologic/Lymphatic Hematologic/Lymphatic: Reports easy bruising; Denies easy bleeding EXAM Physical Exam Const Vital Signs: 06/29/24 20:00 06/29/24 20:12 Temperature 97.1 F L Temperature Source Temporal Pulse Rate 71 Respiratory Rate 18 Respiratory Effort Normal Respiratory Depth Normal Respiratory Pattern Normal Blood Pressure 134/81 H Blood Pressure Mean 98 Pulse Ox 98 Oxygen Delivery Method Room Air Room Air Positive well nourished and well developed General Appearance ED: well developed and NAD HEENT Reports normocephalic HEENT Narrative: There is no evidence of trauma to the ears. There is no evidence of trauma to the nose or teeth. atraumatic Eyes PERRL and EOMs intact bilaterally Eyes Narrative: There is no subconjunctival hemorrhage. General Eye ED: Negative for pale conjunctiva or scleral icterus Neck full ROM, no lymphadenopathy and supple Chest Wall inspection of chest normal and palpation of chest normal Resp normal respiratory effort, no retractions and clear to auscultation bilaterally Cardio regular rate, regular rhythm, S1 normal heart sound, S2 normal heart sound and no murmurs GI non-tender, non-distended and no masses Inspection: abdominal distention Palpation: soft Back/Spine Cervical Spine: Negative for cervical spine tenderness Thoracic Spine / Upper Back: Negative for ROM limited or pain with ROM Extremity Extremity Narrative: Patient has soft tissue swelling and bruising over the left patella. There is joint line tenderness over the lateral and medial tibial plateau. He has extension to 180 degrees and flexion to 95 degrees. There is tenderness over the bursa. There is no laxity with varus valgus stress testing. Larisa's test is negative. Modified Cricket's was negative. Patient has an AKA right lower extremity. Patient has pain outpatient over the right proximal humerus. There is no pain the patient with the clavicle or AC joint. There is no pain ovation over the lateral medial epicondyle, olecranon process or radial head with supination pronation. There is no pain ovation of the distal radius ulna, carpal bones, metacarpal bones or phalanges. Axillary, median, radial and ulnar function intact. Neuro oriented x3, CN's II-XII intact bilaterally, moves all extremities and no focal motor deficits Sanford Coma Scale: document GCS findings Spontaneous Obeys Commands Oriented 15 Psych mental status grossly normal and thought process normal Skin Trauma: abrasion MDM MDM MDM Narrative Medical decision making narrative: With patient having pain with passive or active range of motion of the shoulder will obtain x-ray to rule out fracture versus contusion. X-ray of the knee was obtained to rule out patella fracture. Clinically he has a traumatic bursitis. Patient was informed the stitch that ruptured at the site of arthroscopy will not be resutured. He presents with the wound crusted over. There is no evidence infection at this time. Radiography Chest X-Ray - ED: Read by ED Physician (Three-view x-ray of the right shoulder reveals arthritic changes. There is no fracture, subluxation dislocation. 3 views were obtained and independent reviewed interpreted by me.) and - (4 view x-ray of the knee reveals no fracture, subluxation, dislocation or arthritic changes. There is a small effusion noted. This may be due to the fact that he had recent arthroscopy.) Treatment and Re-Evaluation Narrative: Patient was informed of his x-ray results. Since patient has a traumatic bursitis we will treat with NSAIDs unless he has kidney disease. If he does have kidney disease we will treat with prednisone. Creatinine is elevated 1.41. Discharge Plan Triage Chief Complaint: Fall ED Provider: Joce Serrano Dx/Rx/DC Orders Clinical Impression: Prepatellar bursitis of left knee, Ischemic cardiomyopathy, Presence of stent in coronary artery, Essential hypertension, GERD (gastroesophageal reflux disease), Contusion of right shoulder region, Abrasion, left knee, initial encounter Instructions: ED Bursitis Prescriptions: New prednisone 20 mg tablet 40 mg PO DAILY Qty: 8 0RF No Action pantoprazole 40 mg tablet,delayed release (DR/EC) 40 mg PO DAILY Qty: 30 11RF gabapentin 300 mg capsule 300 mg PO QHS temazepam 15 mg capsule 15 mg PO QHS PRN (Reason: Sleep) trazodone 50 mg tablet 50 mg PO QHS escitalopram oxalate 20 mg tablet 20 mg PO DAILY fexofenadine [Romana Allergy] 180 mg tablet 180 mg PO DAILY tamsulosin 0.4 mg capsule 0.4 mg PO DAILY Patient Comments: TAKE 1 CAPSULE BY MOUTH EVERY DAY dapagliflozin propanediol [Farxiga] 10 mg tablet 10 mg PO DAILY Qty: 30 11RF aspirin 81 MG tablet,chewable 81 mg PO QHS Patient Comments: TAKES WITH NIASPAN TO PREVENT HOT FLASHES Rx Instructions: will stop 5 day prior multivitamin [Daily Multi-Vitamin] Tablet 1 tab PO DAILY acetaminophen 500 mg Tablet 1,000 mg PO Q8 Qty: 180 0RF aspirin 81 mg Tablet,Chewable 81 mg PO BID 14 Days Qty: 28 0RF nitroglycerin 0.4 mg tablet, sublingual 0.4 mg sublingual Q5M PRN (Reason: chest pain) Qty: 25 3RF Rx Instructions: do not exceed 3 doses per episode potassium chloride 20 mEq tablet extended release 40 meq PO QDAY Qty: 180 3RF clopidogrel [Plavix] 75 mg tablet 75 mg PO DAILY Qty: 90 3RF Patient Comments: WILL STOP 5 DAYS PRIOR TO OR furosemide 40 mg tablet 40 mg PO BID Qty: 180 3RF Rx Instructions: water retention atorvastatin 80 mg tablet 80 mg PO QHS Qty: 90 3RF carvedilol 25 mg tablet 25 mg PO BID Qty: 180 3RF isosorbide mononitrate 60 mg tablet extended release 24 hr 60 mg PO BID Qty: 180 3RF ramipril 10 mg capsule 10 mg PO DAILY Qty: 90 4RF Primary Care Provider: Speedy Boswell Referrals: Speedy Boswell MD [Primary Care Provider] - 1 Week if not improving Print Language: Georgian Disposition Disposition: Home, Self Care
[2024-06-29] MEDS: predniSONE 20 MG Tablet 40 MG PO (21:03)
[2024-06-29 21:06] VITALS: BP 145/74; PULSE 65; RESP 16; TEMP 36.6; O2SAT 100
== END 2024-06-29 21:07 | disposition home or self-care (01) ==
PROVIDERS: Emergency Provider Emergency Medicine; PCP Family Medicine; Visit Provider Emergency Medicine
DX: M70.42 Prepatellar bursitis, left knee (principal); I11.0 Hypertensive heart disease with heart failure; I50.22 Chronic systolic (congestive) heart failure; E11.9 Type 2 diabetes mellitus without complications; I25.5 Ischemic cardiomyopathy; I25.10 Atherosclerotic heart disease of native coronary artery without angina pectoris; Z87.891 Personal history of nicotine dependence; R26.2 Difficulty in walking, not elsewhere classified; W19.XXXA Unspecified fall, initial encounter; S80.212A Abrasion, left knee, initial encounter; K21.9 Gastro-esophageal reflux disease without esophagitis; S40.011A Contusion of right shoulder, initial encounter; Z95.5 Presence of coronary angioplasty implant and graft; E78.2 Mixed hyperlipidemia
CPT/HCPCS: 73030; 73564; 99282

== ENCOUNTER → 2024-08-01 | Outpatient (CLI) | payer MEDICARE, SELFPAY ==
--- NOTE | 2024-08-01 08:50 | CT_ITS ---
EXAM: CT LEFT UPPER EXTREMITY WITHOUT INTRAVENOUS CONTRAST, ELBOW CLINICAL INDICATION: left elbow pain TECHNIQUE: Helically acquired images were obtained of the left elbow without intravenous contrast. 2-D reformats were performed by the technologist. This CT exam was performed using one or more of the following dose reduction techniques: automated exposure control, adjustment of the mA and/or kV according to patient size, and/or use of iterative reconstruction technique. COMPARISON: No relevant prior studies available. FINDINGS: BONES/JOINTS: There are no acute osseous abnormalities. The elbow joint space is maintained. There is an orthopedic plate and screws across an old distal humerus fracture. No sclerotic or destructive changes. SOFT TISSUES: Unremarkable. No soft tissue swelling or gas. No radiopaque foreign body. CT/Extremity Upper without Contra IMPRESSION: Hardware across an old distal humerus fracture. There are no acute abnormalities of the elbow. Electronically Signed: Jhon Gage MD at 23:57 EDT ,
--- NOTE | 2024-08-01 08:51 | CT_ITS ---
EXAM: CT RIGHT UPPER EXTREMITY WITHOUT INTRAVENOUS CONTRAST, SHOULDER CLINICAL INDICATION: right shoulder pain TECHNIQUE: Helically acquired images were obtained of the right shoulder without intravenous contrast. 2-D reformats were performed by the technologist. This CT exam was performed using one or more of the following dose reduction techniques: automated exposure control, adjustment of the mA and/or kV according to patient size, and/or use of iterative reconstruction technique. COMPARISON: No relevant prior studies available. FINDINGS: BONES/JOINTS: There is mild elevation of the humeral head and glenoid fossa which can seen in rotator cuff injuries. There is no obvious tear identified. There are degenerative changes with narrowing of glenohumeral joint. No acute fracture. No subluxation. Normal alignment. SOFT TISSUES: Unremarkable. No soft tissue swelling or gas. No radiopaque foreign body. CT/Extremity Upper without Contra IMPRESSION: Degenerative changes with narrowing of the glenohumeral joint. There is also elevation of the humeral head in the glenoid which can be seen in chronic rotator cuff injuries. There are no acute osseous abnormalities. If indicated further evaluation with MRI or CT arthrogram may be beneficial. Electronically Signed: Jhon Gage MD at 23:55 EDT ,
== END | disposition home or self-care (01) ==
PROVIDERS: PCP Family Medicine; Referring Provider Family Medicine; Visit Provider Family Medicine
DX: M25.511 Pain in right shoulder (principal); M25.522 Pain in left elbow
CPT/HCPCS: 73200

== ENCOUNTER → 2024-09-10 | Outpatient (CLI) | payer MEDICARE, SELFPAY ==
[2024-09-10 18:19] LABS: Microalbumin,Random Urine 11.2 mg/L (NO RANGE EST.)
[2024-09-10 18:39] LABS: AST(SGOT) 19 U/L (15-37); Alanine Aminotransfer ALT/SGPT 34 U/L (16-61); Albumin, Serum 3.7 g/dL (3.2-5.0); Alkaline Phosphatase 136 U/L (45-117); Anion Gap 5 (5-15); BUN 16 mg/dL (7-18); Calcium,Total 10.3 mg/dL (8.5-10.1); Chloride 108 mmol/L (98-107); Cholesterol 118 mg/dL (200); EST Glomerular Filtration Rate 79 mL/min (>60); Est Glom Filt Rate - Afr Amer 95 mL/min (>60); Globulin 3.6 g/dL (2.2-4.2); Glucose 119 mg/dL (74-106); High Density Lipoprotein 39 mg/dL; Potassium 4.3 mmol/L (3.5-5.1); Protein, Total 7.3 g/dL (6.4-8.2); Sodium Level 138 mmol/L (136-145); Triglycerides 121 mg/dL; Very Low Density Lipoprotein 24 mg/dL (5-40)
== END | disposition home or self-care (01) ==
PROVIDERS: PCP Family Medicine; Referring Provider Family Medicine; Visit Provider Family Medicine
DX: E11.9 Type 2 diabetes mellitus without complications (principal)
CPT/HCPCS: 36415; 80053; 80061; 82043

== ENCOUNTER 2024-10-20 23:38 | Emergency (ER) | payer MEDICARE, SELFPAY ==
[2024-10-20 23:39] VITALS: BP 131/106; PULSE 92; RESP 16; TEMP 36.8; O2SAT 95
[2024-10-20 23:40] VITALS: BP 131/106; PULSE 92; RESP 16; TEMP 36.8; O2SAT 95; BMI 46.3
[2024-10-21 00:55] VITALS: BP 104/60; RESP 18
[2024-10-21] MEDS: 0.9% Normal Saline (1000mL) 1,000 ML 999 ML IV (00:58)
[2024-10-21] MEDS: Ondansetron 4 MG/2 ML Vial IV (00:58)
[2024-10-21] MEDS: Morphine 4 MG/ML Syringe IV (00:58)
[2024-10-21 01:00] VITALS: BP 132/93; PULSE 63; RESP 20; TEMP 36.8; O2SAT 95
[2024-10-21 01:10] LABS: Absolute Lymphocyte Count 1.63 X10^3/uL (0.83-4.51); Absolute Neutrophil Count 4.7 X10^3/uL (2.0-7.7); Basophil# 0.05 X10^3/uL; Basophil% 0.7 % (0-1); Eosinophil# 0.16 X10^3/uL; Eosinophils% 2.2 % (0-5); Hematocrit 41.9 % (40-54); Hemoglobin 14.1 g/dL (13.0-16.5); Lymphocyte # 1.63 X10^3/ul (0.83-4.51); Lymphocyte % 22.6 % (19-41); Mean Corp Hgb Conc 33.7 g/dL (32-36); Mean Corpuscular Hgb 30.1 pg (27.0-32.0); Mean Corpuscular Volume 89.3 fL (80-94); Mean Platelet Vol. 9.6 fl (6.2-12.0); Monocyte% 8.3 % (0-10); NRBC Flagged by Analyzer 0 % (0-5); Neutrophil # 4.73 X10^3/uL (2.7-7.7); Neutrophil % 65.8 % (47-70); Platelet Count 202 K/mm3 (150-450); RBC Distribution Width SD 42.3 fl (35.1-43.9); Red Blood Count 4.69 M/mm3 (4.6-6.2); White Blood Count 7.2 K/mm3 (4.4-11.0)
--- NOTE | 2024-10-21 01:22 | CT_ITS ---
EXAM: CT ABDOMEN AND PELVIS WITHOUT INTRAVENOUS CONTRAST CLINICAL INDICATION: left flank pain TECHNIQUE: Helically acquired images were obtained of the abdomen and pelvis without intravenous contrast. This CT exam was performed using one or more of the following dose reduction techniques: automated exposure control, adjustment of the mA and/or kV according to patient size, and/or use of iterative reconstruction technique. RADIATION DOSE: CTDIvol = 22.88 mGy, DLP = 1172.05 mGy-cm COMPARISON: 01/15/2022. FINDINGS: LOWER THORAX: Coronary artery calcifications. Lung bases are clear. No cardiomegaly. No significant pericardial effusion. ABDOMEN: LIVER: Unremarkable. Homogeneous. GALLBLADDER AND BILE DUCTS: Unremarkable. No calcified gallstones. No gallbladder distention or wall edema. No intra- or extrahepatic biliary ductal dilation. PANCREAS: Unremarkable. No focal cystic mass. SPLEEN: Unremarkable. Normal size without focal cystic or solid mass. ADRENALS: Unremarkable. No nodules. KIDNEYS AND URETERS: Two nonobstructing calculi left kidney the largest measuring 5 mm. Single nonobstructing calculus measuring up to 9 mm lower pole of right kidney. Areas of cortical scarring left kidney. Simple left renal cyst. No follow-up of this simple cyst is necessary. STOMACH AND BOWEL: Unremarkable. No stomach or bowel distention. No focal inflammatory change. PELVIS: APPENDIX: Normal appendix. BLADDER: Unremarkable. REPRODUCTIVE: Unremarkable as visualized. No mass. ABDOMEN and PELVIS: INTRAPERITONEAL SPACE: Unremarkable. No ascites or other fluid collection. No free air. BONES/JOINTS: Left total hip arthroplasty. Components appear well seated. No suspicious lytic or blastic abnormality. SOFT TISSUES: Atrophic right psoas and iliacus muscles. No discrete abdominal or pelvic wall hernia. VASCULATURE: See above. LYMPH NODES: Unremarkable. No enlarged lymph nodes. CT/Abdomen/Pelvis without Cont IMPRESSION: 1. No acute abdominal pelvic abnormality. 2. Coronary artery disease. 3. Two nonobstructing calculi left kidney the largest measuring 5 mm. Single nonobstructing calculus measuring up to 9 mm lower pole of right kidney. 4. Areas of cortical scarring left kidney. 5. Left total hip arthroplasty. Components appear well seated. Electronically Signed: Louis Garrison MD at 2:33 EST ,
[2024-10-21 01:26] LABS: Bacteria 0 SEEN /hpf (None Seen); Mucous, Urine 0 SEEN /hpf (<or=2+); Red Blood Cells-Urine 0 SEEN /hpf (0-5); Squamous Epithelial Cells - UA 0 SEEN /hpf (0-5)
[2024-10-21 01:27] LABS: Anion Gap 5 (5-15); BUN 15 mg/dL (7-18); BUN/Creat Ratio 11.9 RATIO (10-20); Calcium,Total 9.6 mg/dL (8.5-10.1); Chloride 107 mmol/L (98-107); Creatinine, Serum 1.26 mg/dL (0.70-1.30); EST Glomerular Filtration Rate 60 mL/min (>60); Est Glom Filt Rate - Afr Amer 73 mL/min (>60); Estimated Creatinine Clearance 73.08 ml/min; Glucose 141 mg/dL (74-106); Potassium 3.5 mmol/L (3.5-5.1); Sodium Level 138 mmol/L (136-145)
[2024-10-21 01:41] LABS: Color, Urine Yellow (Yellow); Glucose, Dipstick 1000 mg/dl (Normal); Ketone-Dipstick Negative (Negative); Leukocyte Esterase-Dipstick 25 /ul (Negative); Nitrite-Dipstick Negative (Negative); Occult Blood-Urine Negative /ul (Negative); Protein-Dipstick Negative (Negative); Specific Gravity, Urine 1.015 (1.002-1.030); Urine Bilirubin Dipstick Negative (Negative); Urine Clarity Clear (Clear); Urine Urobilinogen Normal (Normal)
[2024-10-21 01:48] LABS: White Blood Cells 0-5 SEEN /hpf (0-5)
[2024-10-21 02:00] VITALS: BP 106/61; PULSE 60; RESP 18; TEMP 36.8; O2SAT 97
[2024-10-21 03:00] VITALS: BP 107/64; PULSE 64; RESP 18; TEMP 36.7; O2SAT 93
--- NOTE | 2024-10-21 03:49 | EX.ED.DYSGE1 ---
HPI History of Present Illness Chief Complaint: Flank Pain Informant: patient Narrative Narrative: Patient is a 69-year-old male with past medical history of hypertension hyperlipidemia coronary artery disease as well as previous [id number] amputation on right. He states he is also had history of kidney stones. He reports that over the past week he has been having intermittent left-sided flank/back pain that radiates towards the abdomen. He states will wax and wane in severity. He denies any trauma fevers chills dysuria or hematuria. However he does state that it feels similar nature to his previous kidney stones and with concern for this he presents for evaluation [facility] Medical History Coronary atherosclerosis of bypass graft Wears hearing aid Wears glasses Wears contact lenses Wears partial dentures Diabetes Arthritis Anemia Back pain Injury of head and neck Difficulty swallowing Phantom pain after amputation of lower extremity Stuttering History of pain when walking History of edema History of echocardiogram History of stress test Cardiology follow-up encounter Lateral epicondylitis of left elbow Left elbow pain Over 65 years old COVID-19 Fracture, humerus Fall Cancer Alcohol abuse Depression Former smoker CPAP (continuous positive airway pressure) dependence Pacemaker TIA (transient ischemic attack) Esophageal foreign body Stroke-like symptoms Paresthesia of left upper extremity Renal calculi GERD (gastroesophageal reflux disease) Chest pain Mixed hyperlipidemia Essential hypertension Obesity (BMI 30-39.9) Surgical wound dehiscence Above knee amputation of right lower extremity Debility Lymphedema of right lower extremity Automatic implantable cardioverter-defibrillator in situ Chronic systolic congestive heart failure GERD (gastroesophageal reflux disease) Atherosclerotic heart disease of [place] coronary artery without angina pectoris Shortness of breath History of 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 Ischemic cardiomyopathy (~10/30/23) Atherosclerosis of coronary artery bypass graft without angina pectoris Gastroenteritis SIRS (systemic inflammatory response syndrome) Morbid obesity with BMI of 40.0-44.9, adult Effects of radiation Acute lymphangitis of right lower extremity ICD (implantable cardioverter-defibrillator) in place (~08/17/10) Lymphedema of Right Leg CAD (coronary artery disease) Chronic Systolic CHF - EF 45% GERD (gastroesophageal reflux disease) Home Medications ?Medication ?Instructions ?Recorded ?Last Taken ?Type aspirin 81 mg chewable tablet 81 mg PO QHS Heart health 06/09/17 06/10/24 History gabapentin 300 mg capsule 300 mg PO QHS Rls 09/21/20 06/10/24 History temazepam 15 mg capsule 15 mg PO QHS PRN Sleep 09/21/20 06/10/24 History trazodone 50 mg tablet 50 mg PO QHS sleep 03/22/21 06/10/24 History escitalopram oxalate 20 mg tablet 20 mg PO DAILY 08/20/22 06/11/24 History potassium chloride 20 mEq 40 meq (2 x 20 mEq) PO QDAY 08/09/23 06/10/24 Rx tablet,extended release supplement #180 tabs atorvastatin 80 mg tablet 80 mg PO QHS cholesterol #90 tabs 11/26/23 06/10/24 Rx carvedilol 25 mg tablet 25 mg PO BID heart #180 tabs 11/26/23 06/11/24 Rx isosorbide mononitrate 60 mg 60 mg PO BID blood pressure #180 11/26/23 06/11/24 Rx tablet,extended release 24 hr tabs ramipril 10 mg capsule 10 mg PO DAILY #90 caps 04/06/24 06/11/24 Rx multivitamin (Daily Multi-Vitamin 1 tab PO DAILY 05/27/24 06/06/24 History tablet) prednisone 20 mg tablet 40 mg (2 x 20 mg) PO DAILY #8 06/29/24 Unknown Rx TABLETS dapagliflozin propanediol 10 mg 10 mg PO DAILY #30 tabs 09/21/24 Unknown Rx tablet (Farxiga) pantoprazole 40 mg tablet,delayed 40 mg PO DAILY gerd #90 tabs 09/21/24 Unknown Rx release clopidogrel 75 mg tablet (Plavix) 75 mg PO DAILY blood clots #90 tabs 10/12/24 Unknown Rx furosemide 40 mg tablet 40 mg PO BID #180 tabs 10/19/24 Unknown Rx acetaminophen 500 mg tablet 1,000 mg PO Q8 PRN fever or pain 10/21/24 Unknown History desloratadine 5 mg tablet 5 mg PO DAILY PRN allergy symptoms 10/21/24 Unknown History finasteride 5 mg tablet 5 mg PO DAILY 10/21/24 Unknown History oxycodone-acetaminophen 5 mg-325 1 tab PO Q6H PRN pain 3 days #12 10/21/24 Unknown Rx mg tablet (Percocet) tabs Allergy/AdvReac Type Severity Reaction Status Date / Time No Known Allergies Allergy Verified 10/20/24 23:39 Family History Mother CAD (coronary artery disease) Father CVA (cerebral vascular accident) Myocardial infarction Brother CAD (coronary artery disease) Hx of CABG Brother CAD (coronary artery disease) Hx of CABG Other Family history of CVA Surgical History H/O heart artery stent Hx of lithotripsy History of shoulder surgery History of cardiac catheterization Hx of colonoscopy Hx of esophagogastroduodenoscopy Presence of stent in coronary artery (~10/15/13) Postsurgical aortocoronary bypass status (~06/01/05) Social History Smoking Status: Former smoker how long ago did patient quit smokin alcohol intake: current alcohol intake frequency: a few times a month substance use type: does not use caffeine: Yes ROS ROS ED Constitutional Constitutional ED: Denies chills or fever(s) ENT ENT ED: Denies sore throat Cardiovascular Cardiovascular: Denies chest pain Respiratory/Chest Respiratory/Chest: Denies cough or dyspnea Gastrointestinal Gastrointestinal: Reports abdominal pain and nausea; Denies diarrhea or vomiting Genitourinary Genitourinary ED: Denies dysuria or hematuria Musculoskeletal Musculoskeletal: Reports back pain Integumentary Denies rash Neurologic Neurologic: Denies headache(s) Hematologic/Lymphatic Hematologic/Lymphatic: Reports easy bleeding and easy bruising EXAM Physical Exam Const Vital Signs: 10/21/24 03:00 10/21/24 04:00 10/21/24 04:12 Temperature 98.1 F 97.8 F Temperature Source Oral Pulse Rate 64 60 60 Respiratory Rate 18 18 18 Blood Pressure 107/64 114/63 114/63 Blood Pressure Mean 78 80 80 Pulse Ox 93 93 93 Oxygen Delivery Method Room Air Room Air Positive well nourished, well developed and obese General Appearance ED: well developed; Negative for pallor Nutritional Appearance: obese HEENT HEENT Narrative: Normocephalic atraumatic Eyes PERRL and EOMs intact bilaterally General Eye ED: Negative for scleral icterus Neck supple Neck Narrative: No nuchal rigidity or meningeal signs Resp normal respiratory effort and clear to auscultation bilaterally Cardio regular rate and regular rhythm GI normal to inspection, nondistended, normoactive bowel sounds, non-tender, non-distended and no masses GI Narrative: No voluntary guarding or rigidity or pulsatile mass Auscultation: normoactive bowel sounds Palpation: soft Back/Spine Back/Spine Narrative: No bony deformity or step-off of the thoracic or lumbar spine no midline tenderness to palpation There is left CVA pain noted No overlying soft tissue changes to suggest trauma or infection Extremity Extremity Narrative: [id number] amputation on right otherwise normal Neuro oriented x3, CN's II-XII intact bilaterally and no sensory deficits noted Sensorium / Orientation: alert Psych mental status grossly normal Skin no rashes or lesions noted and no wounds General Skin Exam: Negative for jaundice or pallor MDM MDM MDM Narrative Medical decision making narrative: Patient presented to the ER hypertensive but otherwise with stable vitals. He reported a remote history of kidney stone and had intermittent left-sided flank pain. Differential diagnosis is for kidney stone versus UTI versus pyelonephritis versus potential hip dysfunction. Basic blood work was obtained with urine sample and noncontrast CT as kidney stone is the most likely diagnosis. Blood work showed no signs of acute kidney injury or severe electrolyte abnormality and urine sample showed no hematuria or overt signs of infection. CT scan showed stones within the right and left kidney but nothing outside the kidney and the ureter. The patient has 2 stones that are under 5 mm in the left kidney and therefore may have recently passed a stone. However at this time he does not have ALICJA or urosepsis his pain is well-controlled and therefore there is no need for further workup in the ER as there is no obvious signs of intestinal abnormalities such as colitis or diverticulitis or perforation or abscess and he is otherwise safe for discharge History & Record Review Discussion w/independent historian: Patient Lab Data Attestation: I reviewed the patient's lab results. Labs: Laboratory Results - last 24 hr 10/21/24 10/21/24 01:02 01:18 WBC 7.2 RBC 4.69 Hgb 14.1 Hct 41.9 MCV 89.3 MCH 30.1 MCHC 33.7 RDW Std Deviation 42.3 RDW Coeff of Ang 13.0 Plt Count 202 MPV 9.6 Immature Gran % (Auto) 0.400 Neut % (Auto) 65.8 Lymph % (Auto) 22.6 Brooks % (Auto) 8.3 Eos % (Auto) 2.2 Baso % (Auto) 0.7 Absolute Neuts (auto) 4.7 Absolute Lymphs (auto) 1.63 Nucleated RBC % 0 Sodium 138 Potassium 3.5 Chloride 107 Carbon Dioxide 26.0 Anion Gap 5 BUN 15 Creatinine 1.26 Estim Creat Clear Calc 73.08 Est GFR (MDRD) Af Amer 73 Est GFR (MDRD) Non-Af 60 BUN/Creatinine Ratio 11.9 Glucose 141 H Calcium 9.6 Urine Color Yellow Urine Clarity Clear Urine pH 6.0 Ur Specific [place] 1.015 Urine Protein Negative Urine Glucose (UA) 1000 H Urine Ketones Negative Urine Occult Blood Negative Urine Nitrite Negative Urine Bilirubin Negative Urine Urobilinogen Normal Ur Leukocyte Esterase 25 H Urine RBC 0 SEEN Urine WBC 0-5 SEEN Ur Squamous Epith Cells 0 SEEN Urine Bacteria 0 SEEN Urine Mucus 0 SEEN Radiography Diagnostic Testing: Clinical Impression(s) from Imaging Studies Abdomen/Pelvis CT 10/21/24 01:22 IMPRESSION: 1. No acute abdominal pelvic abnormality. 2. Coronary artery disease. 3. Two nonobstructing calculi left kidney the largest measuring 5 mm. Single nonobstructing calculus measuring up to 9 mm lower pole of right kidney. 4. Areas of cortical scarring left kidney. 5. Left total hip arthroplasty. Components appear well seated. Electronically Signed: Louis Garrison MD at 2:33 EST , Discharge Plan Triage Chief Complaint: Flank Pain ED Provider: Manuel Hart Dx/Rx/DC Orders Clinical Impression: 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, Essential hypertension, Mixed hyperlipidemia, Obesity (BMI 30-39.9), CAD (coronary artery disease) Instructions: ED Kidney Stone with Pain Prescriptions: New oxycodone-acetaminophen [Percocet] 5-325 mg tablet 1 tab PO Q6H PRN (Reason: pain) 3 Days Qty: 12 0RF No Action gabapentin 300 mg capsule 300 mg PO QHS temazepam 15 mg capsule 15 mg PO QHS PRN (Reason: Sleep) trazodone 50 mg tablet 50 mg PO QHS escitalopram oxalate 20 mg tablet 20 mg PO DAILY aspirin 81 MG tablet,chewable 81 mg PO QHS Patient Comments: TAKES WITH NIASPAN TO PREVENT HOT FLASHES Rx Instructions: will stop 5 day prior desloratadine 5 mg tablet 5 mg PO DAILY PRN (Reason: allergy symptoms) finasteride 5 mg tablet 5 mg PO DAILY acetaminophen 500 mg Tablet 1,000 mg PO Q8 PRN (Reason: fever or pain) multivitamin [Daily Multi-Vitamin] Tablet 1 tab PO DAILY prednisone 20 mg tablet 40 mg PO DAILY Qty: 8 0RF potassium chloride 20 mEq tablet extended release 40 meq PO QDAY Qty: 180 3RF atorvastatin 80 mg tablet 80 mg PO QHS Qty: 90 3RF carvedilol 25 mg tablet 25 mg PO BID Qty: 180 3RF isosorbide mononitrate 60 mg tablet extended release 24 hr 60 mg PO BID Qty: 180 3RF ramipril 10 mg capsule 10 mg PO DAILY Qty: 90 4RF pantoprazole 40 mg tablet,delayed release (DR/EC) 40 mg PO DAILY Qty: 90 3RF dapagliflozin propanediol [Farxiga] 10 mg tablet 10 mg PO DAILY Qty: 30 11RF clopidogrel [Plavix] 75 mg tablet 75 mg PO DAILY Qty: 90 3RF furosemide 40 mg tablet 40 mg PO BID Qty: 180 3RF Rx Instructions: water retention Primary Care Provider: Speedy Boswell Referrals: Ravi Holder MD [Med Staff - Active Staff] - Speedy Boswell MD [Primary Care Provider] - Activity Restrictions/Additional Instructions: Please follow-up with urology regarding the kidney stones found on your CT scan today. However you have no signs of kidney damage or kidney infection/UTI. Continue all of your home medications as directed by your doctor and return to the ER should you have any further concerns Print Language: Montene[place]in Disposition Disposition: Home, Self Care Discharge Date/Time: 10/21/24 04:16
[2024-10-21 04:00] VITALS: BP 114/63; PULSE 60; RESP 18; O2SAT 93
[2024-10-21 04:12] VITALS: BP 114/63; PULSE 60; RESP 18; TEMP 36.6; O2SAT 93
[2024-10-21] MEDS: oxyCODONE 5 MG Tablet PO (04:13)
== END 2024-10-21 04:16 | disposition home or self-care (01) ==
PROVIDERS: Emergency Provider Emergency Medicine; PCP Family Medicine; Visit Provider Emergency Medicine
DX: N20.0 Calculus of kidney (principal); I11.0 Hypertensive heart disease with heart failure; I50.22 Chronic systolic (congestive) heart failure; E11.9 Type 2 diabetes mellitus without complications; E66.9 Obesity, unspecified; E78.2 Mixed hyperlipidemia; Z87.891 Personal history of nicotine dependence; I25.10 Atherosclerotic heart disease of native coronary artery without angina pectoris; Z86.73 Personal history of transient ischemic attack (TIA), and cerebral infarction without residual deficits; Z95.0 Presence of cardiac pacemaker; Z79.82 Long term (current) use of aspirin; Z79.899 Other long term (current) drug therapy; F32.A Depression, unspecified; Z79.02 Long term (current) use of antithrombotics/antiplatelets; K21.9 Gastro-esophageal reflux disease without esophagitis; Z95.5 Presence of coronary angioplasty implant and graft; Z68.39 Body mass index [BMI] 39.0-39.9, adult
CPT/HCPCS: 74176; 80048; 81001; 85025; 96361; 96374; 96375; 99283; J7030; A4216; J2405

== ENCOUNTER 2024-10-26 00:57 | Emergency (ER) | payer MEDICARE, SELFPAY ==
[2024-10-26 00:57] VITALS: PULSE 72; RESP 16; TEMP 36.4; O2SAT 96; BMI 48.7
[2024-10-26 01:00] VITALS: BP 138/77; PULSE 75; RESP 16; TEMP 36.4; O2SAT 98
--- NOTE | 2024-10-26 01:19 | EX.ED.DYSGE1 ---
HPI History of Present Illness Chief Complaint: Flank Pain Detail of Chief Complaint: Patient reports bilateral flank pain. He points to right and left paralumb Informant: patient Onset/Context/Timing Onset: Days Context: Sudden Onset Timing: Continuous Quality: Pain Location: Right and left paralumbar region Current Severity: Mild Maximum Severity: Moderate Worsened by: Movement Relieved by: Nothing Associated Symptoms Associated Symptoms: No GI or symptoms Narrative Narrative: Patient is a 69-year-old male. He was seen on October 21. He was diagnosed with bilateral renal calculi. His UA was unremarkable. His renal function was normal. Patient was discharged prescription for oxycodone. He states that did not help. Patient has history of coronary artery disease, ischemic cardiomyopathy, essential hypertension, mixed hyperlipidemia with chronic systolic congestive heart failure. BMI is 48.8. Patient does have a AICD that was placed August 2010. Patient presents because nothing is helping his pain. He states he wants admitted to determine what the cause of his pain. 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 This was diagnosed many years ago. He denies fever, chills night sweats. He denies abdominal pain, nausea, vomiting or diarrhea. He denies radicular pain. He denies bowel or bladder dysfunction. He denies dysuria, frequency, urgency or hematuria. Patient states he was prescribed Oxy codon. This has not helped his pain. Prior similar symptoms: Yes Recent Illness/Hospitalization: Yes [facility] Medical History Coronary atherosclerosis of bypass graft Wears hearing aid Wears glasses Wears contact lenses Wears partial dentures Diabetes Arthritis Anemia Back pain Injury of head and neck Difficulty swallowing Phantom pain after amputation of lower extremity Stuttering History of pain when walking History of edema History of echocardiogram History of stress test Cardiology follow-up encounter Lateral epicondylitis of left elbow Left elbow pain Over 65 years old COVID-19 Fracture, humerus Fall Cancer Alcohol abuse Depression Former smoker CPAP (continuous positive airway pressure) dependence Pacemaker TIA (transient ischemic attack) Esophageal foreign body Stroke-like symptoms Paresthesia of left upper extremity Renal calculi GERD (gastroesophageal reflux disease) Chest pain Mixed hyperlipidemia Essential hypertension Obesity (BMI 30-39.9) Surgical wound dehiscence Above knee amputation of right lower extremity Debility Lymphedema of right lower extremity Automatic implantable cardioverter-defibrillator in situ Chronic systolic congestive heart failure GERD (gastroesophageal reflux disease) Atherosclerotic heart disease of [place] coronary artery without angina pectoris Shortness of breath History of 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 halfway use of drug Ischemic cardiomyopathy (~10/30/23) Atherosclerosis of coronary artery bypass graft without angina pectoris Gastroenteritis SIRS (systemic inflammatory response syndrome) Morbid obesity with BMI of 40.0-44.9, adult Effects of radiation Acute lymphangitis of right lower extremity ICD (implantable cardioverter-defibrillator) in place (~08/17/10) Lymphedema of Right Leg CAD (coronary artery disease) Chronic Systolic CHF - EF 45% GERD (gastroesophageal reflux disease) Home Medications ?Medication ?Instructions ?Recorded ?Last Taken ?Type aspirin 81 mg chewable tablet 81 mg PO QHS Heart health 06/09/17 06/10/24 History gabapentin 300 mg capsule 300 mg PO QHS Rls 09/21/20 06/10/24 History temazepam 15 mg capsule 15 mg PO QHS PRN Sleep 09/21/20 06/10/24 History trazodone 50 mg tablet 50 mg PO QHS sleep 03/22/21 06/10/24 History escitalopram oxalate 20 mg tablet 20 mg PO DAILY 08/20/22 06/11/24 History potassium chloride 20 mEq 40 meq (2 x 20 mEq) PO QDAY 08/09/23 06/10/24 Rx tablet,extended release supplement #180 tabs atorvastatin 80 mg tablet 80 mg PO QHS cholesterol #90 tabs 11/26/23 06/10/24 Rx carvedilol 25 mg tablet 25 mg PO BID heart #180 tabs 11/26/23 06/11/24 Rx isosorbide mononitrate 60 mg 60 mg PO BID blood pressure #180 11/26/23 06/11/24 Rx tablet,extended release 24 hr tabs ramipril 10 mg capsule 10 mg PO DAILY #90 caps 04/06/24 06/11/24 Rx multivitamin (Daily Multi-Vitamin 1 tab PO DAILY 05/27/24 06/06/24 History tablet) prednisone 20 mg tablet 40 mg (2 x 20 mg) PO DAILY #8 06/29/24 Unknown Rx TABLETS dapagliflozin propanediol 10 mg 10 mg PO DAILY #30 tabs 09/21/24 Unknown Rx tablet (Farxiga) pantoprazole 40 mg tablet,delayed 40 mg PO DAILY gerd #90 tabs 09/21/24 Unknown Rx release clopidogrel 75 mg tablet (Plavix) 75 mg PO DAILY blood clots #90 tabs 10/12/24 Unknown Rx furosemide 40 mg tablet 40 mg PO BID #180 tabs 10/19/24 Unknown Rx acetaminophen 500 mg tablet 1,000 mg PO Q8 PRN fever or pain 10/21/24 Unknown History desloratadine 5 mg tablet 5 mg PO DAILY PRN allergy symptoms 10/21/24 Unknown History finasteride 5 mg tablet 5 mg PO DAILY 10/21/24 Unknown History oxycodone-acetaminophen 5 mg-325 1 tab PO Q6H PRN pain 3 days #12 10/21/24 10/25/24 21:00 Rx mg tablet (Percocet) tabs Allergy/AdvReac Type Severity Reaction Status Date / Time No Known Allergies Allergy Verified 10/26/24 00:58 Family History Mother CAD (coronary artery disease) Father CVA (cerebral vascular accident) Myocardial infarction Brother CAD (coronary artery disease) Hx of CABG Brother CAD (coronary artery disease) Hx of CABG Other Family history of CVA Surgical History H/O heart artery stent Hx of lithotripsy History of shoulder surgery History of cardiac catheterization Hx of colonoscopy Hx of esophagogastroduodenoscopy Presence of stent in coronary artery (~10/15/13) Postsurgical aortocoronary bypass status (~06/01/05) Social History Smoking Status: Former smoker how long ago did patient quit smokin alcohol intake: current alcohol intake frequency: a few times a month substance use type: does not use caffeine: Yes ROS ROS ED Constitutional Constitutional ED: Denies chills, fever(s), subjective, sweats or weight loss Gastrointestinal Gastrointestinal: Denies abdominal pain, nausea or vomiting Genitourinary Genitourinary ED: Denies dysuria, hematuria or urinary frequency Musculoskeletal Musculoskeletal: Reports back pain and other Details: There is no history of direct or indirect trauma. ; Denies arthralgias or myalgias Integumentary Denies rash Neurologic Neurologic: Denies paresthesias or weakness Hematologic/Lymphatic Hematologic/Lymphatic: Reports systems reviewed and no addt'l complaints, except as documented EXAM Physical Exam Const Vital Signs: 10/26/24 00:57 10/26/24 01:00 Temperature 97.5 F L 97.5 F L Temperature Source Oral Oral Pulse Rate 72 75 Respiratory Rate 16 16 Blood Pressure 138/77 H Blood Pressure Mean 97 Pulse Ox 96 98 Oxygen Delivery Method Room Air Room Air Positive well nourished and well developed Constitutional Narrative: BMI is 48.8. General Appearance ED: well developed and NAD; Negative for cyanotic, diaphoretic or pallor HEENT Reports moist mucous membranes HEENT Narrative: Head is atraumatic normocephalic. Ears normal. Eyes PERRL and EOMs intact bilaterally General Eye ED: Negative for pale conjunctiva or scleral icterus Resp normal respiratory effort and clear to auscultation bilaterally Cardio regular rate, regular rhythm, S1 normal heart sound, S2 normal heart sound and no murmurs GI non-tender and no masses; Negative for non-distended or hepatosplenomegaly Inspection: abdominal distention Auscultation: hypoactive bowel sounds Palpation: soft; Negative for guarding, splenomegaly, mass or rebound tenderness present Back/Spine no CVA tenderness Back/Spine Narrative: Reproducible right and left paralumbar pain. Having him sit up from a supine position causes him discomfort. Extremity Negative for normal to inspection Extremity Narrative: Prosthesis right lower extremity. Neuro oriented x3 and CN's II-XII intact bilaterally Neuro Narrative: EHLs intact on the left. There is no clonus or Babinski sign noted on the left. Sensorium / Orientation: alert Psych Mood & Affect: depressed Skin no rashes or lesions noted, no wounds and skin turgor normal General Skin Exam: Negative for jaundice or pallor MDM MDM MDM Narrative Medical decision making narrative: Records from October 21 were reviewed. CAT scan was independently reviewed by me. Patient has atrophy with 2 renal calculi and 1 renal calculus on the left and right respectively. These are nonobstructing stones. There is no obvious bone destruction in light of his history of cancer. Blood work was obtained and was unremarkable. In my opinion patient has muscular back pain. Since he has normal renal functions treat with IV Toradol. Will reassess in 30 to 60 minutes. There is no need to repeat his blood work or laboratory tests. Treatment and Re-Evaluation :: Patient was informed in my professional opinion this is not due to kidney stones. He states this is where he has had pain that has been attributed to kidney stones. He was informed that kidney stones do not cause pain pain arise when the stone moves and goes into the ureter. My recommendation is ice and anti-inflammatories. Patient then informed he has an appointment later today with Dr. Holder. I informed him if Dr. Holder believes I am incorrect that I would like for him to call me. Furthermore with a BMI of 48.8 and the fact that is worse with pain suspect patient has degenerative arthritis as a cause of his low back pain. There is no concern for an acute herniated disc or cauda equina. Discharge Plan Triage Chief Complaint: Flank Pain ED Provider: Joce Serrano Dx/Rx/DC Orders Clinical Impression: Low back pain, Ischemic cardiomyopathy, Postsurgical aortocoronary bypass status, Debility, Essential hypertension, Mixed hyperlipidemia, Bilateral renal stones, Obesity, morbid, BMI 40.0-49.9 Instructions: ED Back Pain (Acute or Chronic) Prescriptions: No Action gabapentin 300 mg capsule 300 mg PO QHS temazepam 15 mg capsule 15 mg PO QHS PRN (Reason: Sleep) trazodone 50 mg tablet 50 mg PO QHS escitalopram oxalate 20 mg tablet 20 mg PO DAILY aspirin 81 MG tablet,chewable 81 mg PO QHS Patient Comments: TAKES WITH NIASPAN TO PREVENT HOT FLASHES Rx Instructions: will stop 5 day prior desloratadine 5 mg tablet 5 mg PO DAILY PRN (Reason: allergy symptoms) finasteride 5 mg tablet 5 mg PO DAILY acetaminophen 500 mg Tablet 1,000 mg PO Q8 PRN (Reason: fever or pain) oxycodone-acetaminophen [Percocet] 5-325 mg tablet 1 tab PO Q6H PRN (Reason: pain) 3 Days Qty: 12 0RF multivitamin [Daily Multi-Vitamin] Tablet 1 tab PO DAILY prednisone 20 mg tablet 40 mg PO DAILY Qty: 8 0RF potassium chloride 20 mEq tablet extended release 40 meq PO QDAY Qty: 180 3RF atorvastatin 80 mg tablet 80 mg PO QHS Qty: 90 3RF carvedilol 25 mg tablet 25 mg PO BID Qty: 180 3RF isosorbide mononitrate 60 mg tablet extended release 24 hr 60 mg PO BID Qty: 180 3RF ramipril 10 mg capsule 10 mg PO DAILY Qty: 90 4RF pantoprazole 40 mg tablet,delayed release (DR/EC) 40 mg PO DAILY Qty: 90 3RF dapagliflozin propanediol [Farxiga] 10 mg tablet 10 mg PO DAILY Qty: 30 11RF clopidogrel [Plavix] 75 mg tablet 75 mg PO DAILY Qty: 90 3RF furosemide 40 mg tablet 40 mg PO BID Qty: 180 3RF Rx Instructions: water retention Primary Care Provider: Speedy Boswell Referrals: Speedy Boswell MD [Primary Care Provider] - 1 Week if not improving Activity Restrictions/Additional Instructions: 1. Keep your appointment with Dr. Holder 2. Recommend ice 6-8 times to your back 3. Recommend ibuprofen or Aleve for your pain. Print Language: [place]ian Disposition Disposition: Home, Self Care
[2024-10-26] MEDS: Ketorolac 15 MG/ML Vial IV (01:34)
[2024-10-26 02:00] VITALS: BP 129/65; PULSE 65; RESP 18; TEMP 37; O2SAT 97
[2024-10-26 02:24] VITALS: BP 129/65; PULSE 65; RESP 18; TEMP 37; O2SAT 97
== END 2024-10-26 02:32 | disposition home or self-care (01) ==
PROVIDERS: Emergency Provider Emergency Medicine; PCP Family Medicine; Visit Provider Emergency Medicine
DX: M54.50 Low back pain, unspecified (principal); I11.0 Hypertensive heart disease with heart failure; I50.22 Chronic systolic (congestive) heart failure; E66.01 Morbid (severe) obesity due to excess calories; Z68.41 Body mass index [BMI] 40.0-44.9, adult; E11.9 Type 2 diabetes mellitus without complications; Z87.891 Personal history of nicotine dependence; I25.10 Atherosclerotic heart disease of native coronary artery without angina pectoris; E78.2 Mixed hyperlipidemia; R53.81 Other malaise; Z95.810 Presence of automatic (implantable) cardiac defibrillator; Z86.73 Personal history of transient ischemic attack (TIA), and cerebral infarction without residual deficits; Z79.82 Long term (current) use of aspirin; Z79.899 Other long term (current) drug therapy; F32.A Depression, unspecified; K21.9 Gastro-esophageal reflux disease without esophagitis; Z79.02 Long term (current) use of antithrombotics/antiplatelets; Z95.5 Presence of coronary angioplasty implant and graft; N20.0 Calculus of kidney; I25.5 Ischemic cardiomyopathy
CPT/HCPCS: 96374; 99284; A4216

== ENCOUNTER 2024-11-18 06:40 | Day surgery (SDC) | payer MEDICARE, SELFPAY ==
[2024-11-18] VITALS (9 sets, daily range): BP systolic 113–144; BP diastolic 61–77; PULSE 61–67; RESP 16–18; TEMP 36.4–36.8; O2SAT 94–99; BMI 45.6
[2024-11-18] MEDS: 0.9% Normal Saline (1000mL) 1,000 ML 15 ML IV (07:10)
--- NOTE | 2024-11-18 07:17 | HP.PCM_ITS ---
HPI - General General Date of Service: 11/18/24 Chief Complaint: left kidney stones HPI Narrative ARISTIDES ISSA, is a 69 M who presents with left kidney stone. stone are non obstructive in lower pole, has pain off and on warned him that pain may not be from stones, he insist that the pain is from the stone and wants them treated, plan to do laser of stones. FOR[facility]LY [facility] Medical History (Updated 11/05/24 @ 15:21 by Lili Dawson) Coronary atherosclerosis of bypass graft Wears hearing aid Wears glasses Wears contact lenses Wears partial dentures Diabetes Arthritis Anemia Back pain Injury of head and neck Difficulty swallowing Phantom pain after amputation of lower extremity Stuttering History of pain when walking History of edema History of echocardiogram History of stress test Cardiology follow-up encounter Lateral epicondylitis of left elbow Left elbow pain Over 65 years old COVID-19 Fracture, humerus Fall Cancer Depression Former smoker CPAP (continuous positive airway pressure) dependence Pacemaker TIA (transient ischemic attack) Esophageal foreign body Stroke-like symptoms Paresthesia of left upper extremity Renal calculi GERD (gastroesophageal reflux disease) Chest pain Mixed hyperlipidemia Essential hypertension Obesity (BMI 30-39.9) Surgical wound dehiscence Above knee amputation of right lower extremity Debility Lymphedema of right lower extremity Automatic implantable cardioverter-defibrillator in situ Chronic systolic congestive heart failure GERD (gastroesophageal reflux disease) Atherosclerotic heart disease of [place] coronary artery without angina pectoris Shortness of breath History of 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 terminologist use of 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 Ischemic cardiomyopathy (~10/30/23) Atherosclerosis of coronary artery bypass graft without angina pectoris Gastroenteritis SIRS (systemic inflammatory response syndrome) Morbid obesity with BMI of 40.0-44.9, adult Effects of radiation Acute lymphangitis of right lower extremity ICD (implantable cardioverter-defibrillator) in place (~08/17/10) Lymphedema of Right Leg CAD (coronary artery disease) Chronic Systolic CHF - EF 45% GERD (gastroesophageal reflux disease) Home Medications ?Medication ?Instructions ?Recorded ?Last Taken ?Type aspirin 81 mg chewable tablet 81 mg PO QHS Heart health 06/09/17 06/10/24 History gabapentin 300 mg capsule 300 mg PO QHS Rls 09/21/20 06/10/24 History temazepam 15 mg capsule 15 mg PO QHS PRN Sleep 09/21/20 06/10/24 History trazodone 50 mg tablet 50 mg PO QHS sleep 03/22/21 06/10/24 History escitalopram oxalate 20 mg tablet 20 mg PO DAILY 08/20/22 06/11/24 History potassium chloride 20 mEq 40 meq (2 x 20 mEq) PO QDAY 08/09/23 06/10/24 Rx tablet,extended release supplement #180 tabs atorvastatin 80 mg tablet 80 mg PO QHS cholesterol #90 tabs 11/26/23 06/10/24 Rx carvedilol 25 mg tablet 25 mg PO BID heart #180 tabs 11/26/23 06/11/24 Rx isosorbide mononitrate 60 mg 60 mg PO BID blood pressure #180 11/26/23 06/11/24 Rx tablet,extended release 24 hr tabs ramipril 10 mg capsule 10 mg PO DAILY #90 caps 04/06/24 06/11/24 Rx multivitamin (Daily Multi-Vitamin 1 tab PO DAILY 05/27/24 06/06/24 History tablet) dapagliflozin propanediol 10 mg 10 mg PO DAILY #30 tabs 09/21/24 Unknown Rx tablet (Farxiga) pantoprazole 40 mg tablet,delayed 40 mg PO DAILY gerd #90 tabs 09/21/24 Unknown Rx release clopidogrel 75 mg tablet (Plavix) 75 mg PO DAILY blood clots #90 tabs 10/12/24 Unknown Rx furosemide 40 mg tablet 40 mg PO BID #180 tabs 10/19/24 Unknown Rx acetaminophen 500 mg tablet 1,000 mg PO Q8 PRN fever or pain 10/21/24 Unknown History desloratadine 5 mg tablet 5 mg PO DAILY PRN allergy symptoms 10/21/24 Unknown History finasteride 5 mg tablet 5 mg PO DAILY 10/21/24 Unknown History oxycodone-acetaminophen 5 mg-325 1 tab PO Q6H PRN pain 3 days #12 10/21/24 10/25/24 21:00 Rx mg tablet (Percocet) tabs Allergy/AdvReac Type Severity Reaction Status Date / Time No Known Allergies Allergy Verified 11/05/24 15:13 Family History Mother CAD (coronary artery disease) Father CVA (cerebral vascular accident) Myocardial infarction Brother CAD (coronary artery disease) Hx of CABG Brother CAD (coronary artery disease) Hx of CABG Other Family history of CVA Surgical History (Updated 11/05/24 @ 15:21 by Lili Dawson) History of implantable cardiac defibrillator (ICD) Hx of arthroscopic knee surgery H/O heart artery stent Hx of lithotripsy History of shoulder surgery History of cardiac catheterization Hx of colonoscopy Hx of esophagogastroduodenoscopy Presence of stent in coronary artery (~10/15/13) Postsurgical aortocoronary bypass status (~06/01/05) Social History Smoking Status: Former smoker how long ago did patient quit smokin alcohol intake: current alcohol intake frequency: a few times a month substance use type: does not use caffeine: Yes Vital Signs Vital Signs Vital Signs: Weight Weight: 133.356 kg
--- NOTE | 2024-11-18 07:33 | PCM.DC ---
Discharge Instructions DC O2, CPAP, BIPAP needs Additional Home O2 Discharge instructions: No Follow Up Care Test Results: Test results from this visit will be discussed in further detail at your follow-up appointment, if applicable. Discharge Plan Admission Primary Reason for Your Visit: left laser stone Attending Provider: Ravi Holder Primary Care Provider: Speedy Boswell Instructions Print Language: Albanian Discharge Orders/Prescriptions Prescriptions: New ciprofloxacin HCl [Cipro] 500 mg tablet 500 mg PO BID Qty: 10 0RF oxycodone 5 mg tablet 5 mg PO Q6H PRN (Reason: pain) 3 Days Qty: 14 0RF Continued gabapentin 300 mg capsule 300 mg PO QHS temazepam 15 mg capsule 15 mg PO QHS PRN (Reason: Sleep) trazodone 50 mg tablet 50 mg PO QHS escitalopram oxalate 20 mg tablet 20 mg PO DAILY desloratadine 5 mg tablet 5 mg PO DAILY PRN (Reason: allergy symptoms) finasteride 5 mg tablet 5 mg PO DAILY acetaminophen 500 mg Tablet 1,000 mg PO Q8 PRN (Reason: fever or pain) oxycodone-acetaminophen [Percocet] 5-325 mg tablet 1 tab PO Q6H PRN (Reason: pain) 3 Days Qty: 12 0RF multivitamin [Daily Multi-Vitamin] Tablet 1 tab PO DAILY potassium chloride 20 mEq tablet extended release 40 meq PO QDAY Qty: 180 3RF atorvastatin 80 mg tablet 80 mg PO QHS Qty: 90 3RF carvedilol 25 mg tablet 25 mg PO BID Qty: 180 3RF isosorbide mononitrate 60 mg tablet extended release 24 hr 60 mg PO BID Qty: 180 3RF ramipril 10 mg capsule 10 mg PO DAILY Qty: 90 4RF pantoprazole 40 mg tablet,delayed release (DR/EC) 40 mg PO DAILY Qty: 90 3RF dapagliflozin propanediol [Farxiga] 10 mg tablet 10 mg PO DAILY Qty: 30 11RF furosemide 40 mg tablet 40 mg PO BID Qty: 180 3RF Rx Instructions: water retention Held aspirin 81 MG tablet,chewable 81 mg PO QHS Hold Instructions: Resume on 12/02/24. Patient Comments: TAKES WITH NIASPAN TO PREVENT HOT FLASHES Rx Instructions: will stop 5 day prior clopidogrel [Plavix] 75 mg tablet 75 mg PO DAILY Qty: 90 3RF Hold Instructions: Resume on 12/02/24. Referrals / Follow Up: Ravi Holder MD [Med Staff - Active Staff] - Speedy Boswell MD [Primary Care Provider] - Disposition Disposition (needs filled in before D/C Order can be placed): Home, Self Care
--- NOTE | 2024-11-18 07:42 | PCM.PRE.AN2 ---
ASA Classification* ASA Classification ASA Classification: 3 Assessment & Plan Anesthesia* Anesthesia Assessment Anesthesia Assessment: Discussed sedation and/or anesthesia options, risks, benefits, and alternatives with patient/parents/legal guardian/POA. Questions invited. The patient/parents/legal guardian/POA seems to understand and agrees to proceed with anesthesia plan. Reviewed the physical assessment, medical history, allergy history and patient home medications list prior to surgery/procedure/anesthetic and documented any changes. Performed airway and anesthesia risk assessments. Anesthesia Type Anesthesia Type: General (No sux due to CVA hx with deficit) Anesthesia Focused Assessment* Temperature: 98.1 F Pulse Rate: 67 Blood Pressure: 134/67 Respiratory Rate: 18 Pulse Ox: 99 Airway Assessment Mouth opens: >3 cm Mallampati Score: II Focused Labs Anesthesia Preop lab: CBC WBC 7.2 K/mm3 (4.4-11.0) 10/21/24 01:02 RBC 4.69 M/mm3 (4.6-6.2) 10/21/24 01:02 Hgb 14.1 g/dL (13.0-16.5) 10/21/24 01:02 Hct 41.9 % (40-54) 10/21/24 01:02 Plt Count 202 K/mm3 (150-450) 10/21/24 01:02 CHEMISTRY Potassium 3.5 mmol/L (3.5-5.1) 10/21/24 01:02 Sodium 138 mmol/L (136-145) 10/21/24 01:02 Magnesium 1.7 mg/dL (1.8-2.4) L 06/08/17 18:50 Phosphorus 1.5 mg/dL (2.5-4.9) L 03/12/14 08:00 BUN 15 mg/dL (7-18) 10/21/24 01:02 Creatinine 1.26 mg/dL (0.70-1.30) 10/21/24 01:02 Glucose 141 mg/dL (74-106) H 10/21/24 01:02 POC Glucose 124 mg/dL (74-106) H 06/11/24 06:24 TSH 0.95 uIU/mL (0.358-3.74) 08/29/20 14:45 COAG PT 12.5 SECONDS (11.7-14.9) 02/18/21 19:13 Pre-Assessment Diagnosis/Proposed Procedure Planned Operative Procedure(s): CYSTO URETEROSCOPY LASER STONE WITH STENT LEFT Anesthesia History Anesthesia History - strategic advisor: Anesthesia History - strategic advisor Hx Hospitalization No 11/05/24 15:16 Any Problems With Anesthesia No 11/05/24 15:16 Cholinesterase deficiency No 11/05/24 15:16 You/Your Family Experience No 11/05/24 15:16 fever (hyperthermia) with Relationship Recent Exposure to Contagious No 11/18/24 07:27 Disease Does patient have nerve No 11/05/24 15:16 stimulator Patient instructed to have device shut off --Does patient have Pacemaker Yes 11/18/24 07:27 or ICD? When Was Last Pacemaker Check may 2019 09/23/20 14:25 QUESTION #4 FULL TEXT: You/Your Family Experience fever (hyperthermia) with Anesthesia Last Oral Intake Last Oral intake: Last Oral Intake NPO since 05:45 11/18/24 07:27 Meds taken in AM with sips of Yes 11/18/24 07:27 water? Meds patient instructed to see med rec 11/18/24 07:27 take am of surgery PONV PONV - strategic advisor: PONV - strategic advisor Female No 11/05/24 15:16 HX of Motion Sickness No 11/05/24 15:16 HX of N/V After Surgery No 11/05/24 15:16 Non-Smoker Yes 11/05/24 15:16 Duration of Surgery greater Yes 11/05/24 15:16 than 60 minutes Number of Risk Factors 2 11/05/24 15:16 PONV Score Moderate Risk 11/05/24 15:16 Height & Weight Height & Weight: Anesthesia: Height & Weight Height 5 ft 7 in 11/18/24 07:27 Weight: 132 kg 11/18/24 07:27 Body Mass Index (BMI) 45.6 11/18/24 07:27 Respiratory Assessment Respiratory Assessment - strategic advisor: Respiratory Tract Infection Hx - strategic advisor Hx Respiratory Tract Infection No 11/05/24 15:16 STOP Sleep Apnea STOP Sleep Apnea - strategic advisor: STOP Sleep Apnea - strategic advisor Hx Hypertension Yes: CONTROLLED WITH MEDS 11/05/24 15:16 Hx Sleep Apnea Yes 11/05/24 15:16 CPAP Yes 11/05/24 15:16 BIPAP No 11/05/24 15:16 Do you snore loudly (louder than talking or can be heard Do you often feel tired/ fatigued/ sleepy during daytime? Has anyone observed you stop breathing during sleep? STOP Results Positive 11/05/24 15:16 QUESTION #5 FULL TEXT : Do you snore loudly (louder than talking or can be heard through closed doors)? Tobacco Use History Tobacco Use History - strategic advisor: Tobacco Use History - strategic advisor Tobacco Use Non-smoker 04/06/21 13:42 Smoking Status Former smoker 11/05/24 15:16 Hx Tobacco Use No: chewing tobacco 11/05/24 15:16 Years Smoking Packs Smoked per Day Smoking Cessation Date was No - quit smoking greater 11/05/24 15:16 within the last 15 years than 15 years ago Hx Smoking Cessation Date 12/02/82 11/05/24 15:16 Hx Smoking Cessation No 11/05/24 15:16 Counseling Hematologic Medial History Hematologic Hx - strategic advisor: Hematologic Medical Hx - fitness center attendant Hx of Blood Transfusion No 11/05/24 15:16 Hx of Transfusion in last 3 No 11/05/24 15:16 Months Date of Last Transfusion (if within last 3 months) Ever experience any problems No 11/05/24 15:16 with transfusion(s)? Specify any problems Hx of Preganancy in last 3 N/A 11/05/24 15:16 Months Nurse Filling Out Transfusion DSCHRIBER 11/05/24 15:16 & Questions: Date: 11/05/24 11/05/24 15:16 Time: 15:17 11/05/24 15:16 Patient unable to answer at this time (ie. confused, unrespo /Reproduction History /Reproductive History - strategic advisor: /Reproductive Hx- strategic advisor Hx Now No 11/05/24 15:16 Gestational Age (in weeks): EDC: Hx Hx Para Hx Section SAB No 11/05/24 15:16 Active Medications Active Medications: Current Medications Generic Name Dose Route Start Last Admin Trade Name Freq PRN Reason Stop Dose Admin Cefazolin Sodium 3 gm/ N/A 30 mls @ 600 mls/hr 11/18/24 08:45 IV 11/18/24 08:47 PREOP ONE Sodium Chloride 1,000 mls @ 15 mls/hr 11/18/24 07:25 11/18/24 07:10 IV 11/23/24 20:44 15 mls/hr .Q48H MARYANNE Administration Protocol PFSH Medical History Coronary atherosclerosis of bypass graft Wears hearing aid Wears glasses Wears contact lenses Wears partial dentures Diabetes Arthritis Anemia Back pain Injury of head and neck Difficulty swallowing Phantom pain after amputation of lower extremity Stuttering History of pain when walking History of edema History of echocardiogram History of stress test Cardiology follow-up encounter Lateral epicondylitis of left elbow Left elbow pain Over 65 years old COVID-19 Fracture, humerus Fall Cancer Depression Former smoker CPAP (continuous positive airway pressure) dependence Pacemaker TIA (transient ischemic attack) Esophageal foreign body Stroke-like symptoms Paresthesia of left upper extremity Renal calculi GERD (gastroesophageal reflux disease) Chest pain Mixed hyperlipidemia Essential hypertension Obesity (BMI 30-39.9) Surgical wound dehiscence Above knee amputation of right lower extremity Debility Lymphedema of right lower extremity Automatic implantable cardioverter-defibrillator in situ Chronic systolic congestive heart failure GERD (gastroesophageal reflux disease) Atherosclerotic heart disease of [place] coronary artery without angina pectoris Shortness of breath History of 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 Ischemic cardiomyopathy (~10/30/23) Atherosclerosis of coronary artery bypass graft without angina pectoris Gastroenteritis SIRS (systemic inflammatory response syndrome) Morbid obesity with BMI of 40.0-44.9, adult Effects of radiation Acute lymphangitis of right lower extremity ICD (implantable cardioverter-defibrillator) in place (~08/17/10) Lymphedema of Right Leg CAD (coronary artery disease) Chronic Systolic CHF - EF 45% GERD (gastroesophageal reflux disease) Home Medications ?Medication ?Instructions ?Recorded ?Last Taken ?Type aspirin 81 mg chewable tablet 81 mg PO QHS Heart health 06/09/17 11/08/24 History gabapentin 300 mg capsule 300 mg PO QHS Rls 09/21/20 06/10/24 History temazepam 15 mg capsule 15 mg PO QHS PRN Sleep 09/21/20 06/10/24 History trazodone 50 mg tablet 50 mg PO QHS sleep 03/22/21 06/10/24 History escitalopram oxalate 20 mg tablet 20 mg PO DAILY 08/20/22 06/11/24 History potassium chloride 20 mEq 40 meq (2 x 20 mEq) PO QDAY 08/09/23 06/10/24 Rx tablet,extended release supplement #180 tabs atorvastatin 80 mg tablet 80 mg PO QHS cholesterol #90 tabs 11/26/23 06/10/24 Rx carvedilol 25 mg tablet 25 mg PO BID heart #180 tabs 11/26/23 11/18/24 05:45 Rx isosorbide mononitrate 60 mg 60 mg PO BID blood pressure #180 11/26/23 06/11/24 Rx tablet,extended release 24 hr tabs ramipril 10 mg capsule 10 mg PO DAILY #90 caps 04/06/24 11/18/24 05:45 Rx multivitamin (Daily Multi-Vitamin 1 tab PO DAILY 05/27/24 06/06/24 History tablet) dapagliflozin propanediol 10 mg 10 mg PO DAILY #30 tabs 09/21/24 Unknown Rx tablet (Farxiga) pantoprazole 40 mg tablet,delayed 40 mg PO DAILY gerd #90 tabs 09/21/24 11/18/24 05:45 Rx release clopidogrel 75 mg tablet (Plavix) 75 mg PO DAILY blood clots #90 tabs 10/12/24 11/08/24 Rx furosemide 40 mg tablet 40 mg PO BID #180 tabs 10/19/24 Unknown Rx acetaminophen 500 mg tablet 1,000 mg PO Q8 PRN fever or pain 10/21/24 Unknown History desloratadine 5 mg tablet 5 mg PO DAILY PRN allergy symptoms 10/21/24 Unknown History finasteride 5 mg tablet 5 mg PO DAILY 10/21/24 Unknown History oxycodone-acetaminophen 5 mg-325 1 tab PO Q6H PRN pain 3 days #12 10/21/24 10/25/24 21:00 Rx mg tablet (Percocet) tabs Allergy/AdvReac Type Severity Reaction Status Date / Time No Known Allergies Allergy Verified 11/18/24 07:23 Family History Mother CAD (coronary artery disease) Father CVA (cerebral vascular accident) Myocardial infarction Brother CAD (coronary artery disease) Hx of CABG Brother CAD (coronary artery disease) Hx of CABG Other Family history of CVA Surgical History History of implantable cardiac defibrillator (ICD) Hx of arthroscopic knee surgery H/O heart artery stent Hx of lithotripsy History of shoulder surgery History of cardiac catheterization Hx of colonoscopy Hx of esophagogastroduodenoscopy Presence of stent in coronary artery (~10/15/13) Postsurgical aortocoronary bypass status (~06/01/05) Social History Smoking Status: Former smoker how long ago did patient quit smokin alcohol intake: current alcohol intake frequency: a few times a month substance use type: does not use caffeine: Yes Review of Systems (Anesthesia) ROS Narrative System reviewed and no additional complaints, except as documented.
[2024-11-18 07:51] LABS: Bedside Glucose 109 mg/dL (74-106)
[2024-11-18] MEDS: Cefazolin 3 GM in Syringe 1 EACH IV (09:10)
--- NOTE | 2024-11-18 09:58 | PCM.OPRPT ---
Operative Report (Standard) Operative Information Date of Procedure: 11/18/24 Pre-Operative Diagnosis: Left kidney stone Post-Operative Diagnosis: The same Surgery/Procedure Performed: Cystoscopy left ureteroscopy laser lithotripsy of stone, no stent skimmer reverberatory: No Type of Anesthesia: General RN Documented Start/Stop Times: Operation Date: 11/18/24 08:45 Case Time Into Pre-Op 11/18/24 06:55 Out of Pre-Op 11/18/24 09:07 Anesthesia Start 11/18/24 09:10 Into Room 11/18/24 09:10 Procedure Start 11/18/24 09:32 Procedure End 11/18/24 09:56 Procedure Start Time: 09:32 Procedure Stop Time: 09:59 Select all DRAINS/GRAFTS/IMPLANTS that apply: None Estimated Blood Loss: 0 Specimen collected: No Description of surgery: This is a patient who presents to the hospital for treatment for an obstructing ureter calculi. I discussed with the patient how the surgery would be performed and we reviewed the risks and benefits of the surgery. The risk and benefits include the risk of failure to remove the stone completely and that the patient may need multiple procedures. We discussed the risk of an infection, the risk of bleeding. We discussed the very rare risk of serious complicated injury to the ureter. The patient understands that if the stone is not able to be removed safely that we may abort the procedure and place a stent. After full discussion and all questions address with the patient the consent form was signed the side was marked appropriately and the patient was taken back to the operating room for the procedure. The patient was taken back to the operating room. After induction of anesthesia by the anesthesiology team the patient was placed in dorsolithotomy position. The genitals were prepped and draped in usual sterile fashion. I went into the bladder with a 21 [place] rigid cystourethroscope through the urethra. Upon entering the bladder I inspected the trigone the left and right ureteral orifice and the bladder itself. I then cannulated the ureteral orifice and advanced a 0.038 Glidewire up into the kidney. I was able to go inside with the 7.5Fr utereroscope and I pulled out the guidewire and then through the ureteroscope I engage the stone in the kidney with laser lithotripsy using a 270miron laser fiber until the stone was lasered into tiny little pieces that should pass on their own. I then backed out of the ureter. I pulled the wire and removed. I then drained the patient's bladder and the cystoscope was removed and the patient was taken back to the recovery room in good position. The patient was given discharge instructions to call the office for instructions on when to come to the office for a post op check.. Surgical Findings: Stone in the left kidney lasered completely, no stent Complications Complications: No
--- NOTE | 2024-11-18 10:08 | PCM.POST.ANE ---
Anesthesia: Postop Eval I Current Vital Signs Temperature: 97.5 F Pulse Rate: 65 Blood Pressure: 117/61 Respiratory Rate: 18 Pulse Ox: 94 Assessment Airway patent: Yes Spontaneous unlabored respirations: Yes nausea: No Vomiting: No Anesthesia Complication: No Fluid Hydration Crystalloid volume administer (ml): 800 Total IV fluid infused: 800 Progress Note Anesthesia document: Postop Eval 1 completed: Yes
[2024-11-18] MEDS: Ketorolac 15 MG/ML Vial IV (10:48)
--- NOTE | 2024-11-18 11:02 | POSTOPAN2_ITS ---
Anesthesia Postop Eval I Sum Postop Eval Completion status Anesthesia document: Postop Eval 1 completed: Yes Anesthesia Postop Eval I Summary Anesthesia Postop Eval I Summary: Anesthesia Postop Eval I: Assessment Summary Airway patent Yes 11/18/24 10:08 TYPEWRITER ASSEMBLY AND PARTS INSPECTOR.CSIR Spontaneous unlabored Yes 11/18/24 10:08 TYPEWRITER ASSEMBLY AND PARTS INSPECTOR.CSIR respirations Mental status nausea No 11/18/24 10:08 TYPEWRITER ASSEMBLY AND PARTS INSPECTOR.CSIR Vomiting No 11/18/24 10:08 TYPEWRITER ASSEMBLY AND PARTS INSPECTOR.CSIR Anesthesia Postop Eval I: Fluid Summary Crystalloid volume administer 800 11/18/24 10:08 TYPEWRITER ASSEMBLY AND PARTS INSPECTOR.CSIR (ml) Colloids volume administered ( ml) Blood Product volume administered (ml) Total IV fluid infused 800 11/18/24 10:08 TYPEWRITER ASSEMBLY AND PARTS INSPECTOR.CSIR Anesthesia Postop Eval I: Summary Notes Anesthesia Complication No 11/18/24 10:08 TYPEWRITER ASSEMBLY AND PARTS INSPECTOR.CSIR Anesthesia Complication Comment: Post-operative progress note Anesthesia: Postop Eval II Evaluation Mental status: Awake Pain Level: 0 nausea: No Vomiting: No
--- NOTE | 2024-11-18 11:02 | PCM.POSTANE2 ---
Anesthesia Postop Eval I Sum Postop Eval Completion status Anesthesia document: Postop Eval 1 completed: Yes Anesthesia Postop Eval I Summary Anesthesia Postop Eval I Summary: Anesthesia Postop Eval I: Assessment Summary Airway patent Yes 11/18/24 10:08 SILO WORKER.CSIR Spontaneous unlabored Yes 11/18/24 10:08 SILO WORKER.CSIR respirations Mental status nausea No 11/18/24 10:08 SILO WORKER.CSIR Vomiting No 11/18/24 10:08 SILO WORKER.CSIR Anesthesia Postop Eval I: Fluid Summary Crystalloid volume administer 800 11/18/24 10:08 SILO WORKER.CSIR (ml) Colloids volume administered ( ml) Blood Product volume administered (ml) Total IV fluid infused 800 11/18/24 10:08 SILO WORKER.CSIR Anesthesia Postop Eval I: Summary Notes Anesthesia Complication No 11/18/24 10:08 SILO WORKER.CSIR Anesthesia Complication Comment: Post-operative progress note Anesthesia: Postop Eval II Evaluation Mental status: Awake Pain Level: 0 nausea: No Vomiting: No
== END 2024-11-18 11:49 | disposition home or self-care (01) ==
LOC: SDC 06:41 → AC 06:42
PROVIDERS: PCP Family Medicine; Referring Provider Urology; Visit Provider Urology
PROC: 0TJ98ZZ Inspection of Ureter, Via Natural or Artificial Opening Endoscopic (ICD-10-PCS; CPT 52352; principal; 2024-11-18 08:35)
DX: N20.0 Calculus of kidney (principal); Z89.611 Acquired absence of right leg above knee; I11.0 Hypertensive heart disease with heart failure; I50.22 Chronic systolic (congestive) heart failure; E11.9 Type 2 diabetes mellitus without complications; Z79.82 Long term (current) use of aspirin; I25.5 Ischemic cardiomyopathy; Z79.84 Long term (current) use of oral hypoglycemic drugs; Z79.02 Long term (current) use of antithrombotics/antiplatelets; I25.10 Atherosclerotic heart disease of native coronary artery without angina pectoris; Z87.891 Personal history of nicotine dependence; E78.2 Mixed hyperlipidemia; Z86.16 Personal history of COVID-19; Z95.5 Presence of coronary angioplasty implant and graft; Z90.710 Acquired absence of both cervix and uterus; Z86.73 Personal history of transient ischemic attack (TIA), and cerebral infarction without residual deficits; Z99.89 Dependence on other enabling machines and devices; Z95.810 Presence of automatic (implantable) cardiac defibrillator; F32.A Depression, unspecified
CPT/HCPCS: 52353; 00918; 82962; C1769; J2405

== ENCOUNTER → 2024-12-11 | Outpatient (CLI) | payer MEDICARE, SELFPAY ==
[2024-12-11 17:45] LABS: ALB/GLOB Ratio 1.1 RATIO (0.9-2.4); AST(SGOT) 14 U/L (15-37); Alanine Aminotransfer ALT/SGPT 34 U/L (16-61); Albumin, Serum 3.6 g/dL (3.2-5.0); Alkaline Phosphatase 148 U/L (45-117); Anion Gap 4 (5-15); BUN 13 mg/dL (7-18); BUN/Creat Ratio 12.3 RATIO (10-20); Calcium,Total 9.9 mg/dL (8.5-10.1); Chloride 108 mmol/L (98-107); Cholesterol 113 mg/dL (200); Creatinine, Serum 1.06 mg/dL (0.70-1.30); EST Glomerular Filtration Rate 74 mL/min (>60); Est Glom Filt Rate - Afr Amer 89 mL/min (>60); Globulin 3.4 g/dL (2.2-4.2); Glucose 126 mg/dL (74-106); High Density Lipoprotein 50 mg/dL; Potassium 3.6 mmol/L (3.5-5.1); Sodium Level 140 mmol/L (136-145); Triglycerides 122 mg/dL; Very Low Density Lipoprotein 24 mg/dL (5-40)
== END | disposition home or self-care (01) ==
LOC: MTLAB 14:29
PROVIDERS: PCP Family Medicine; Referring Provider Family Medicine; Visit Provider Family Medicine
DX: E11.9 Type 2 diabetes mellitus without complications (principal)
CPT/HCPCS: 36415; 80053; 80061; 83036

== ENCOUNTER 2025-05-09 00:01 | Emergency (ER) | payer MEDICARE, SELFPAY ==
[2025-05-09 00:02] VITALS: BP 145/80; PULSE 58; RESP 18; TEMP 36.8; O2SAT 100; BMI 48.0
--- NOTE | 2025-05-09 00:29 | EKG12_ITS ---
Test Reason : CP Blood Pressure : */* mmHG Vent. Rate : 57 BPM Atrial Rate : 57 BPM P-R Int : 184 ms QRS Dur : 94 ms QT Int : 318 ms P-R-T Axes : 77 -61 72 degrees QTcB Int : 309 ms Sinus bradycardia Left axis deviation Nonspecific T wave abnormality Abnormal ECG Confirmed by Louis Sweet ([id number]), television news video editor BEATRIZ BECERRIL ([id number]) on 05/10/2025 9:34:21 AM Referred By: Confirmed By: Louis Sweet
[2025-05-09 00:32] VITALS: O2SAT 98
[2025-05-09 00:36] LABS: Absolute Lymphocyte Count 1.88 X10^3/uL (0.83-4.51); Absolute Neutrophil Count 4.7 X10^3/uL (2.0-7.7); Basophil# 0.07 X10^3/uL; Basophil% 0.9 % (0-1); Eosinophils% 3.9 % (0-5); Hematocrit 44.4 % (40-54); Lymphocyte # 1.88 X10^3/ul (0.83-4.51); Lymphocyte % 24.3 % (19-41); Mean Corp Hgb Conc 33.8 g/dL (32-36); Mean Corpuscular Hgb 30.2 pg (27.0-32.0); Mean Corpuscular Volume 89.3 fL (80-94); Mean Platelet Vol. 9.7 fl (6.2-12.0); Monocyte# 0.72 X10^3/uL; Monocyte% 9.3 % (0-10); NRBC Flagged by Analyzer 0 % (0-5); Neutrophil # 4.72 X10^3/uL (2.7-7.7); Platelet Count 221 K/mm3 (150-450); RBC Distribution Width CV 13.3 % (11.6-14.6); RBC Distribution Width SD 43.5 fl (35.1-43.9); Red Blood Count 4.97 M/mm3 (4.6-6.2); White Blood Count 7.7 K/mm3 (4.4-11.0)
[2025-05-09 00:52] LABS: Prothrombin Time (Protime)PT. 12.8 SECONDS (11.7-14.9)
[2025-05-09 00:53] LABS: Partial Thromboplast Time 24.4 Seconds (24.1-36.2)
[2025-05-09 01:01] VITALS: BP 125/60; PULSE 59; RESP 25; O2SAT 100
--- OUTSIDE RECORDS SUMMARY | 2025-05-09 01:02 | XMS RPT_ITS | CCD ---
Author Organization [facility] Care Team Providers Care Urban Anthropologist Name Role Phone JUANCHO Deng, Peg Demarco Unavailable Unavailable Speedy Boswell MD Primary Care Provider [phone] Daysi DORANTES, Arlene Gee Unavailable Alex CHAIREZ, Rizwana Woodson Unavailable Unavailable Rizwana Johnson LPN Unavailable Unavailable JUANCHO Deng, Peg Demarco Unavailable Unavailable JUANCHO Deng, Peg Demarco Unavailable Unavailable Speedy Mtz MD Unavailable Cary George MD Unavailable Chey Warren Unavailable Unavailable Chey Warren Unavailable Unavailable Lowell Otero MD Unavailable JUANCHO Deng, Peg Demarco Unavailable Unavailable Dr. Speedy Boswell Primary Care Provider Dr. Speedy Boswell Referring Provider Bethany Deng Attending Provider Unavailable Dr. Speedy Boswell Primary Care Provider Dr. Speedy Boswell Referring Provider Bethany Deng Attending Provider Unavailable Dr. Speedy Boswell Primary Care Provider Dr. Spedey Boswell Referring Provider MIKA Araujo Attending Provider Dr. Ge Tomlinson Attending Provider Bethany Deng Attending Provider Unavailable Dr. Speedy Boswell Primary Care Provider Dr. Speedy Mtz Attending Provider Dr. Speedy Mtz Referring Provider Speedy Boswell MD Primary Care Provider Dr. Speedy Boswell Primary Care Provider Elbert, Dr. Ruff Referring Provider Bethany Deng Attending Provider Unavailable Cristian, Dr. Mazariegos Attending Provider Cristian, Dr. Mazariegos Referring Provider Cristian, Dr. Mazariegos Other Provider Alonzo SALES INCENTIVE ANALYST, ANGELC Gina Attending Provider Delilah Villagomez MD Unavailable Speedy Boswell MD Primary Care Provider DAVID RAMIREZ Attending Unavailable DELILAH VILLAGOMEZ Referring Unavailable BOSWELLSPEEDY MARSH Primary Care Unavailable CARMEN CHAVEZ Attending Unavailable PACEMAKER [facility] Referring Un available SPEEDY BOSWELL Primary Care Unavailable SPEEDY BOSWELL Primary Care Unavailable JAMESDVAID LE Attending Unavailable JAMESDAVID LE Admitting Unavailable JAMESDAVID LE Attending Unavailable JAMESDAVID LE Admitting Unavailable BOSWELLSPEEDY Primary Care Unavailable Elbert, Dr. Ruff Primary Care Provider Cristian, Dr. Mazariegos Attending Provider Cristian, Dr. Mazariegos Referring Provider Cristian, Dr. Mazariegos Other Provider Alonzo CONLEY, JARVIS-Sen Teran Attending Provider Dr. Speedy Boswell Referring Provider Bethany Deng Attending Provider Unavailable Dr. Speedy Boswell Primary Care Provider Dr. Ge Tomlinson Attending Provider Dr. Ge Tomlinson Referring Provider KEL NIELSEN Attending Unavailable SPEEDY BOSWELL Primary Care Unavailable KEL NIELSEN Attending Unavailable SPEEDY BOSWELL Primary Care Unavailable Speedy Boswell MD Primary Care Provider Dr. Speedy Boswell MD Primary Care Provider Dr. Ge Tomlinson MD Attending Provider Dr. Ge Tomlinson MD Referring Provider Dr. Speedy Boswell MD Referring Provider [phone] Cristian DORANTES, Dr. Mazariegos Attending Provider Boswell, Speedy Primary Care Unavailable Spittle, Renny Referring Unavailable Spittle, Renny Admitting Unavailable Tereletsky, Jay Attending Unavailable Tereletsky, Jay Consulting Unavailable Spittle, Renny Consulting Unavailable Boswell, Speedy Primary Care Unavailable Serrano, Joce Attending Unavailable Boswell, Speedy Primary Care Unavailable AndManuel salazar Attending Unavailable Cristian, Delilah Attending Unavailable Boswell, Speedy Primary Care Unavailable Boswell, Speedy Referring Unavailable Boswell, Speedy Primary Care Unavailable Boswell, Speedy Referring Unavailable Boswell, Speedy Attending Unavailable Boswell, Speedy Primary Care Unavailable Boswell, Speedy Referring Unavailable Boswell, Speedy Attending Unavailable Boswell, Speedy Primary Care Unavailable Spittle, Renny Referring Unavailable Spittle, Renny Attending Unavailable Spittle, Renny Admitting Unavailable Tereletsky, Jay Consulting Unavailable Boswell, Speedy Primary Care Unavailable Boswell, Speedy Attending Unavailable Boswell, Speedy Primary Care Unavailable Serrano, Joce Attending Unavailable Glory, Ravi Santiago Referring Unavailable Glory, Ravi Santiago Attending Unavailable Boswell, Speedy Primary Care Unavailable Boswell, Speedy Primary Care Unavailable Bushra, Ge Referring Unavailable Bushra, Ge Attending Unavailable Cristian, Delilah Attending Unavailable Boswell, Speedy Primary Care Unavailable Cristian, Delilah Referring Unavailable Boswell, Speedy Primary Care Unavailable Boswell, Speedy Referring Unavailable Boswell, Speedy Attending Unavailable Boswell, Speedy Primary Care Unavailable Cristian, Delilah Referring Unavailable Cristian, Delilah Attending Unavailable Bushra, [place] Referring Unavailable Bushra, [place] Attending Unavailable Boswell, Speedy Primary Care Unavailable Bushra, [place] Attending Unavailable Bushra, [place] Referring Unavailable Boswell, Speedy Primary Care Unavailable Bushra, Ge Referring Unavailable Bushra, [place] Attending Unavailable Boswell, Speedy Primary Care Unavailable Boswell, Speedy Primary Care Unavailable Boswell, Speedy Referring Unavailable Cristian, Delilah Attending Unavailable Boswell, Speedy Primary Care Unavailable Bushra, [place] Attending Unavailable Cristian, Delilah Attending Unavailable Boswell, Speedy Primary Care Unavailable Boswell, Speedy Referring Unavailable Medications Current Medications Medication Drug Class(es) Dates Sig (Normalized) Sig (Original) acetaminophen 500 mg oral tablet (5 sources) Start: 06-12-2024 End: 10-21-2024 take 2 tablets by mouth every eight hours as needed for pain Acetaminophen 500 mg Tablet Active 1000 mg PO EVERY 8 HOURS as needed for fever or pain October 21, 2024 1:00am Start: 01-06-2024 End: 01-07-2024 take 1 tablet by mouth every six hours as needed Acetaminophen (TYLENOL) tablet 325 mg Start: 05-31-2021 take 2 tablets by mo uth every eight hours acetaminophen (TYLENOL) 500 MG tablet Take 2 tablets by mouth every 8 hours 120 tablet 0 05/31/2021 Active Start: 05-24-2021 take 1 dose by mouth three times daily 1,000 mg, Oral, EVERY 8 HOURS SCHEDULED (3 times per day), First dose on Sat05/24/21 at 0600 Maximum dose of acetaminophen is 4000 mg from all sources in 24 hours. acetaminophen 325 mg / oxyCODONE hydrochloride 5 mg oral tablet (1 source) Opioid Agonist Start: 10-21-2024 take 1 tablet by mouth every six hours as needed for pain Oxycodone-Acetaminophen (Percocet) 5-325 mg tablet Active 1 {tbl} PO EVERY 6 HOURS as needed for pain 12 3 October 21, 2024 atorvastatin 80 mg oral tablet (20 sources) HMG-CoA Reductase Inhibitor Start: 01-06-2024 End: 01-07-2024 take 80 mg by mouth once daily at bedtime 80 mg, Oral, DAILY AT BEDTIME, First dose on Sat01/06/24 at 2100, Until Discontinued Start: 09-21-2020 End: 12-03-2024 take 1 tablet by mouth at bedtime Atorvastatin 80 mg tablet Active 80 mg PO AT BEDTIME December 03, 2024 11:49am Start: 01-08-2020 End: 09-21-2020 take 2 tablets by mouth at dinner Atorvastatin 40 mg tablet Discontinued 80 mg PO WITH DINNER January 08, 2020 3:18pm September 21, 2020 3:06pm Start: 01-08-2020 End: 09-21-2020 take 80 mg by mouth at dinner Atorvastatin Discontinue d 80 MG PO WITH DINNER January 08, 2020 3:18pm September 21, 2020 3:06pm Start: 02-16-2011 End: 01-08-2020 take 1 tablet by mouth at dinner Atorvastatin 40 mg tablet Discontinued 40 mg PO WITH DINNER December 30, 2018 12:28pm January 08, 2020 3:18pm bisacodyl 10 mg rectal suppository (3 sources) Stimulant Laxative Start: 05-30-2021 bisacodyl ( DULCOLAX) suppository 20 mg Start: 05-28-2021 End: 06-30-2021 bisacodyl (DULCOLAX) [address] 1 suppository rectally daily as needed for Constipation 0 05/31/2021 06/30/2021 Active carvedilol 25 mg oral tablet (20 sources) alpha-Adrenergic Sasha, beta-Adrenergic Sasha Start: 04-25-2019 take 3.125 mg by mouth twice daily at mealtime 3.125 mg, Oral, 2 TIMES DAILY WITH MEALS, First dose on Sat05/24/21 at 0800 Administer with food to minimize the risk of orthostatic hypotension Start: 05-24-2017 End: 12-25-2024 take 1 tablet by mouth twice daily Carvedilol 25 mg tablet Active 25 mg PO TWICE A DAY December 25, 2024 9:00am Start: 10-20-2013 COREG 12.5 MG TABS twice daily CARVEDILOL [id number] Екатерина Griggs RN Start: 02-16-2011 End: 01-10-2016 take 1 tablet by mouth twice daily Carvedilol 25 MG tablet Discontinued 25 mg PO TWICE A DAY October 05, 2013 1:00am January 07, 2016 1:53pm cetirizine hydrochloride 10 mg oral tablet (1 source) Histamine-1 Receptor Antagonist Start: 05-24-2021 take 10 mg by mouth once daily 10 mg, Oral, DAILY, First dose on Sat05/24/21 at 0900 Substituted for Loratadine (CLARITIN). clopidogrel 75 mg oral tablet (20 sources) P2Y12 Platelet Inhibitor Start: 05-18-2020 End: 03-22-2021 Clopidogrel 75 mg tablet Discontinued 75 mg PO DAILY May 18, 2020 2:08pm March 22, 2021 2:44pm will stop 7 days prior Start: 10-16-2013 End: 10-12-2024 take 1 tablet by mouth once daily Clopidogrel (Plavix) 75 mg tablet Active 75 mg PO DAILY October 12, 2024 9:39am On Hold: Resume on 12/02/24. dapagliflozin 10 mg oral tablet (3 sources) Sodium-Glucose Cotransporter 2 Inhibitor Start: 05-21-2024 End: 12-10-2024 take 1 tablet by mouth once daily Dapagliflozin Propanediol (Farxiga) 10 mg tablet Active 10 mg PO DAILY December 10, 2024 11:32am desloratadine 5 mg oral tablet (1 source) Histamine-1 Receptor Antagonist Start: 10-21-2024 take 1 tablet by mouth once daily as needed Desloratadine 5 mg tablet Active 5 mg PO DAILY as needed for allergy symptoms October 21, 2024 1:00am escitalopram 20 mg oral tablet (20 sources) Serotonin Reuptake Inhibitor Start: 05-24-2021 take 20 mg by mouth once daily 20 mg, Oral, DAILY, First dose on Sat05/24/21 at 0900 Start: 01-10-2016 End: 01-07-2024 take 1 tablet by mouth once daily Escitalopram Oxalate 20 mg tablet Active 20 mg PO DAILY August 20, 2022 12:00am Start: 11-02-2014 End: 04-14-2019 take 2 tablets by mouth once daily Escitalopram Oxalate 10 MG tablet Discontinued 20 mg PO DAILY November 02, 2014 1:00am April 14, 2019 8:40am Start: 11-02-2014 End: 04-14-2019 take 20 mg by mouth once daily Escitalopram Oxalate Di scontinued 20 MG PO DAILY November 02, 2014 1:00am April 14, 2019 8:40am finasteride 5 mg oral tablet (1 source) 5-alpha Reductase Inhibitor Start: 10-21-2024 take 1 tablet by mouth once daily Finasteride 5 mg tablet Active 5 mg PO DAILY October 21, 2024 1:00am furosemide 40 mg oral tablet (20 sources) Loop Diuretic Start: 05-24-2021 End: 05-26-2021 take 80 mg by mouth once daily 80 mg, Oral, NIGHTLY, First dose on Sat05/24/21 at 2100 Start: 08-20-2019 End: 10-19-2024 take 1 tablet by mouth twice daily Furosemide 40 mg tablet Active 40 mg PO TWICE A DAY October 19, 2024 9:35am water retention Start: 04-25-2019 take 2 tablets by mo uth once daily furosemide (LASIX) 40 MG tablet Take 2 tablets by mouth nightly 60 tablet 3 04/25/2019 Active Start: 02-06-2019 End: 04-16-2019 take 1 tablet by mouth once daily in the morning Furosemide 80 MG tablet Discontinued 80 mg PO EVERY MORNING February 06, 2019 1:00am April 16, 2019 2:34pm Start: 07-11-2018 End: 02-06-2019 take 2 tablets by mouth once daily in the morning Furosemide 40 MG tablet Discontinued 80 mg PO DAILY July 11, 2018 2:46pm February 06, 2019 2:57pm take in morning Start: 07-11-2018 End: 02-06-2019 take 80 mg by mouth once daily in the morning Furosemide Discontinued 80 MG PO DAILY July 11, 2018 2:46pm February 06, 2019 2:57pm take in morning Start: 07-11-2018 End: 08-20-2019 Furosemide 80 mg tablet Discontinued 40 mg PO TWICE A DAY April 16, 2019 2:33pm August 20, 2019 10:50am Start: 07-11-2018 End: 08-20-2019 take 40 mg by mouth twice daily Furosemide Discontinue d 40 MG PO TWICE A DAY April 16, 2019 2:33pm August 20, 2019 10:50am Start: 05-24-2017 End: 06-16-2018 take 1 tablet by mouth at breakfast Furosemide 80 MG tablet Discontinued 80 mg PO WITH BREAKFAST May 24, 2017 12:00am June 16, 2018 2:13pm Start: 05-24-2017 End: 07-11-2018 take 1 tablet by mouth in the evening Furosemide 40 mg tablet Discontinued 40 mg PO .COMPLEX 270 June 16, 2018 2:14pm July 11, 2018 2:46pm 40 mg PO 2 tablets by mouth in the am and 1 tablet by mouth in the pm Start: 12-28-2013 End: 01-10-2016 take 1 tablet by mouth at bedtime Furosemide 40 MG tablet Discontinued 40 mg PO AT BEDTIME April 05, 2015 12:00am January 07, 2016 1:53pm Start: 12-28-2013 take 2 tablets by mo uth twice daily LASIX 40 MG TABS Two tablets by mouth twice daily FUROSEMIDE [id number] Divina Giles PA-C Start: 10-05-2013 End: 01-07-2016 FUROSEMIDE 40 MG TABS 2 tabs in morning, 1 tab in evening FUROSEMIDE [id number] Speedy Mtz MD Start: 10-05-2013 End: 01-07-2016 take 80 mg by mouth once daily Furosemide Discontinued 80 MG PO DAILY October 05, 2013 1:00am January 07, 2016 1:53pm Start: 02-16-2011 take 1 tablet by serafin th once daily FUROSEMIDE 40 MG TABS One tablet by mouth daily FUROSEMIDE [id number] Cary George MD gabapentin 300 mg oral capsule (20 sources) Anti-epileptic Agent Start: 09-21-2020 End: 01-07-2024 take 1 capsule by mouth at bedtime Gabapentin 300 mg capsule Active 300 mg PO AT BEDTIME September 21, 2020 12:00am Start: 01-06-2018 End: 09-21-2020 Gabapentin 600 mg tablet Discontinued 300 mg PO AT BEDTIME January 06, 2018 1:00am September 21, 2020 3:06pm Start: 01-06-2018 End: 09-21-2020 take 300 mg by mouth at bedtime Gabapentin Discontinue d 300 MG PO AT BEDTIME January 06, 2018 1:00am September 21, 2020 3:06pm Start: 06-19-2017 take 1 tablet by serafin th once daily HORIZANT 600 MG CR-TABS One tablet by mouth daily GABAPENTIN IRENEARBIL [id number] Cary George MD Start: 05-04-2015 End: 01-10-2016 take 1 tablet by mouth once daily HORIZANT 600 MG CR-TABS One tablet by mouth daily GABAPENTIN KARENA [id number] Cary George MD 24 hr isosorbide mononitrate 60 mg extended release oral tablet (20 sources) Nitrate Vasodilator Start: 01-06-2024 End: 01-07-2024 60 mg, Oral, 2 TIMES DAILY, First dose on Sat01/06/24 at 2100, Until Discontinued Do not crush or chew. May be divided in half. Start: 05-24-2017 End: 12-25-2024 take 1 tablet by mouth twice daily, then take 1 tablet by mouth every twenty-four hours Isosorbide Mononitrate 60 mg tablet extended release 24 hr Active 60 mg PO TWICE A DAY 180 December 25, 2024 9:01am Start: 10-24-2015 take 1 tablet by mouth once da sukhwinder ISOSORBIDE MONONITRATE ER 60 MG [id number] One tablet by mouth daily ISOSORBIDE MONONITRATE [id number] Ge Tomlinson MD Start: 10-07-2013 End: 10-24-2015 take 1 tablet by mouth twice daily IMDUR 60 MG [id number] One tablet by mouth twice daily ISOSORBIDE MONONITRATE [id number] Ge Tomlinson MD Start: 10-07-2013 take 1 tablet by serafin th twice daily IMDUR 60 MG [id number] One tablet by mouth twice daily ISOSORBIDE MONONITRATE [id number] Speedy Mtz MD Start: 10-07-2013 take 1 tablet by serafin th twice daily IMDUR 60 MG [id number] One tablet by mouth twice daily ISOSORBIDE NANCINITRATE Speedy Mtz MD Start: 10-07-2013 End: 10-24-2015 take 1 tablet by mouth twice daily IMDUR 60 MG [id number] One tablet by mouth twice daily ANAIDSORBIDE MONONITRATE Ge Tomlinson MD Start: 10-05-2013 End: 01-10-2016 take 1 tablet by mouth twice daily Isosorbide Mononitrate 60 MG tablet Discontinued 60 mg PO TWICE A DAY October 05, 2013 1:00am January 07, 2016 1:54pm Start: 08-27-2013 take 1 tablet by serafin th twice daily IMDUR 30 MG [id number] One tablet by mouth twice daily ISOSORBIDE MONONITRATE [id number] Speedy Mtz MD Start: 08-27-2013 take 1 tablet by serafin th twice daily IMDUR 30 MG [id number] One tablet by mouth twice daily ISOSORBIDE MONONITRATE [id number] Speedy Mtz MD Start: 08-27-2013 take 1 tablet by serafin th twice daily IMDUR 30 MG [id number] One tablet by mouth twice daily ISOSORBIDE MONONITRATE [id number] Speedy Mtz MD Start: 07-01-2013 take 1 tablet by mouth once da sukhwinder IMDUR 30 MG [id number] One tablet by mouth daily ISOSORBIDE MONONITRATE [id number] Divina Giles PA-C Start: 07-01-2013 take 1 tablet by mouth once da sukhwinder IMDUR 30 MG [id number] One tablet by mouth daily ISOSORBIDE MONONITRATE [id number] Divina Giles PA-C Start: 07-01-2013 take 1 tablet by mouth once da sukhwinder IMDUR 30 MG [id number] One tablet by mouth daily ISOSORBIDE MONONITRATE [id number] Divina Giles PA-C LORazepam 0.5 mg oral tablet (2 sources) Benzodiazepine Start: 05-24-2021 take 0.5 mg by mouth once daily as needed for anxiety 0.5 mg, Oral, NIGHTLY PRN, Anxiety, as needed for sleep - substituted for home Temazepam, Starting on Sat05/24/21 at 2342 Substituted for Temazepam (RESTORIL). Start: 05-24-2021 End: 05-24-2021 LORazepam (ATIVAN) injection 0.5 mg Multiple Vitamin (multivitamin) capsule (1 source) take 1 capsule by mouth once daily Multiple Vitamin (multivitamin) capsule Take 1 capsule by mouth daily. 0 Active Multivitamin (Daily Multi-Vitamin) tablet (1 source) Start: 4 Multivitamin (Daily Multi-Vitamin) tablet Active 1 {tbl} PO DAILY May 27, 2024 12:00am 24 hr niacin 500 mg extended release oral tablet (20 sources) Nicotinic Acid Start: 1 take 1000 mg by mouth once daily 1,000 mg, Oral, NIGHTLY, First dose on Sat05/24/21 at 2100 Do not crush or break. Start: 06-03-2019 End: 09-21-2020 take 1 tablet by mouth every twenty-four hours at bedtime Niacin 1,000 mg tablet extended release 24 hr Discontinued 1000 mg PO AT BEDTIME June 03, 2019 12:47pm September 21, 2020 3:07pm On Hold: financial concerns Start: 02-16-2011 End: 09-21-2020 take 1 tablet by mouth at bedtime Niacin 1,000 MG tabl et Discontinued 1000 mg PO AT BEDTIME October 05, 2013 1:00am June 03, 2019 12:48pm oxyCODONE hydrochloride 5 mg oral tablet (14 sources) Opioid Agonist Start: 11-18-2024 take 1 tablet by mouth every six hours as needed for pain Oxycodone 5 mg tablet Active 5 mg PO EVERY 6 HOURS as needed for pain 14 November 18, 2024 Start: 01-06-2024 End: 01-07-2024 take 1 tablet by mouth every four hours as needed oxyCODONE (ROXICODONE) tablet 5 mg Start: 05-31-2021 End: 06-05-2021 take 1 tablet by mouth every six hours as needed for pain oxyCODONE (ROXICODONE) 5 MG immediate release tablet Indications: Acute traumatic pain Take 1 tablet by mouth every 6 hours as needed for Pain for up to 5 days. 20 tablet 0 05/31/2021 06/05/2021 Active Start: 05-24-2021 oxyCODONE (CHRISTIN ICODONE) immediate release tablet 5 mg Start: 02-06-2019 End: 02-11-2019 take 5-10 mg by mouth every four hours as needed for pain Oxycodone 5 MG tablet Discontinued 5 - 10 mg PO EVERY 4 HOURS NEEDED as needed for Severe Pain (6-10/10) 30 5 February 06, 2019 1:00am February 10, 2019 12:00am February 11, 2019 12:08am pantoprazole 40 mg delayed release oral tablet (20 sources) Proton Pump Inhibitor Start: 01-08-2020 End: 01-08-2020 take 1 tablet by mouth twice daily Pantoprazole 40 mg tablet,delayed release (DR/EC) Discontinued 40 mg PO TWICE A DAY 60 January 08, 2020 3:51pm January 08, 2020 3:52pm Start: 01-08-2018 End: 09-21-2024 take 1 tablet by mouth once daily Pantoprazole 40 mg tablet,delayed release (DR/EC) Active 40 mg PO DAILY September 21, 2024 10:16am Start: 07-08-2017 take 1 tablet by serafin twice daily PROTONIX 40 MG TBEC One tablet by mouth twice daily PANTOPRAZOLE SODIUM [id number] Cary George MD take 40 mg by mouth once daily before breakfast pantoprazole sodium (PROTONIX) 40 MG PACK packet Take 40 mg by mouth every morning (before breakfast) 0 Active potassium chloride 20 meq extended release oral tablet (20 sources) Start: 02-23-2025 take 2 tablets by mouth once daily Potassium Chloride 20 mEq tablet extended release Active 40 meq PO daily 180 February 23, 2025 8:08pm Start: 01-06-2024 End: 01-07-2024 Potassium chloride (K-DUR) t ablet ER 40-60 mEq Start: 01-06-2024 End: 01-07-2024 Potassium chloride (K-DUR) t ablet ER 20 mEq Start: 05-24-2021 40 mEq, Oral, DAILY, First dose on Sat05/24/21 at 0900 Do not crush, chew, or suck on tablet. Tablet may also be broken in half and each half swallowed separately. Start: 04-25-2019 take 2 tablets by mo [facility] once daily potassium chloride (KLOR-CON M) 20 MEQ extended release tablet Take 2 tablets by mouth daily 60 tablet 5 04/25/2019 Active Start: 01-08-2018 End: 02-23-2025 take 2 tablets by mouth once daily Potassium Chloride ER 20 MEQ Tab CR tablet Take 2 tablets by mouth daily. 0 11/02/2023 Active Start: 01-08-2018 End: 08-09-2023 take 40 mEq by mouth once daily Potassium Chloride Dis continued 40 MEQ PO daily 180 October 19, 2022 1:42pm August 09, 2023 9:46am Start: 10-05-2013 End: 01-08-2018 take 2 tablets by mouth once daily Potassium Chloride 10 MEQ tablet extended release Discontinued 20 meq PO DAILY October 05, 2013 1:00am January 08, 2018 3:31pm Start: 10-05-2013 End: 01-08-2018 take 20 mEq by mouth once daily Potassium Chloride Dis continued 20 MEQ PO DAILY October 05, 2013 1:00am January 08, 2018 3:31pm Start: 12-10-2011 take 2 tablets by mo [facility] once daily KLOR-CON M20 20 MEQ CR-TABS Two tablets by mouth daily POTASSIUM CHLORIDE NISHANT CR [id number] Jay Singh PUMPER HELPER-C Start: 12-10-2011 take 1 tablet by serafin th once daily KLOR-CON M20 20 MEQ CR-TABS One tablet by mouth daily POTASSIUM CHLORIDE NISHANT CR [id number] Speedy Mtz MD Start: 02-16-2011 take 1 tablet by serafin th once daily POTASSIUM CHLORIDE 20 MEQ PACK One tablet by mouth daily POTASSIUM CHLORIDE [id number] Opal Lees Start: 02-16-2011 take 1 tablet by serafin th once daily KLOR-CON M20 20 MEQ CR-TABS One tablet by mouth daily POTASSIUM CHLORIDE NISHANT CR [id number] Speedy Mtz MD Start: 02-16-2011 take 1 tablet by serafin th once daily POTASSIUM CHLORIDE 20 MEQ PACK One tablet by mouth daily POTASSIUM CHLORIDE [id number] [facility] [place] ram[place] 10 mg oral capsule (20 sources) Angiotensin Converting Enzyme Inhibitor Start: 03-27-2023 End: 04-15-2025 take 1 capsule by mouth once daily Ramipril 10 mg capsule Active 10 mg PO DAILY April 15, 2025 8:36am Start: 03-22-2021 End: 03-27-2023 take 1 capsule by mouth twice daily Ramipril 2.5 mg capsule Discontinued 2.5 mg PO TWICE A DAY 180 December 10, 2022 2:04pm March 27, 2023 1:52pm Start: 06-24-2018 End: 03-22-2021 take 1 capsule by mouth once daily Ramipril 2.5 mg capsule Discontinued 2.5 mg PO DAILY September 23, 2020 4:17pm March 22, 2021 2:47pm Start: 01-08-2018 End: 06-24-2018 take 2.5 mg by mouth once daily Ramipril 5 MG capsule Discontinued 2.5 mg PO DAILY January 08, 2018 3:28pm June 24, 2018 4:48pm Start: 01-08-2018 End: 06-24-2018 take 2.5 mg by mouth once daily Ramipril Discontinued 2.5 MG PO DAILY January 08, 2018 3:28pm June 24, 2018 4:48pm Start: 06-19-2017 ALTACE 2.5 MG CAPS .11 RAMIPRIL [id number] Cary George MD Start: 01-07-2014 End: 01-08-2018 take 1 capsule by mouth once daily Ramipril 5 MG capsule Discontinued 5 mg PO DAILY January 07, 2016 1:00am January 08, 2018 3:35pm Start: 01-07-2014 ALTACE 5 MG CA PS on hold 04/29 RAMIPRIL [id number] Екатерина Griggs RN Start: 01-07-2014 take 1 tablet by serafin th twice daily ALTACE 10 MG CAPS One tablet by mouth twice daily RAMIPRIL [id number] Ginny Alanis RN Start: 01-07-2014 take 1 tablet by serafin th once daily ALTACE 2.5 MG CAPS One tablet by mouth daily RAMIPRIL [id number] Divina Giles PA-C Start: 10-05-2013 End: 01-07-2016 take 2 tablets by mouth twice daily ALTACE 5 MG CAPS Two tablets by mouth twice daily RAMIPRIL [id number] Speedy Mtz MD Start: 10-05-2013 End: 01-07-2016 take 10 mg by mouth twice daily Ramipril Discontinued 10 MG PO TWICE A DAY October 05, 2013 1:00am January 07, 2016 1:54pm Start: 02-16-2011 take 1 tablet by serafin th twice daily ALTACE 5 MG CAPS One tablet by mouth twice daily RAMIPRIL [id number] Val Henley RN 12 hr ranolazine 500 mg extended release oral tablet (20 sources) Anti-anginal Start: 05-24-2021 take 1000 mg by mouth twice daily 1,000 mg, Oral, 2 TIMES DAILY, First dose on Sat05/24/21 at 0215 Do not crush or break. Start: 02-24-2014 End: 06-01-2015 take 1 tablet by mouth twice daily Ranolazine 500 MG tablet Discontinued 500 mg PO TWICE A DAY 180 February 24, 2014 12:00am June 01, 2015 10:32am Start: 02-24-2014 End: 09-21-2020 take 1 tablet by mouth twice daily Ranolazine 1,000 mg tablet extended release 12 hr Discontinued 1000 mg PO TWICE A DAY 180 February 03, 2020 6:08pm September 21, 2020 3:07pm On Hold: Financial stone Start: 02-24-2014 take 1 tablet by serafin th twice daily RANEXA 500 MG [id number] One tablet by mouth twice daily RANOLAZINE [id number] Divina Giles PA-C Start: 10-05-2013 End: 12-04-2013 take 1 tablet by mouth twice daily Ranolazine 500 MG tablet Discontinued 500 mg PO TWICE A DAY October 05, 2013 1:00am December 04, 2013 1:34am Start: 06-17-2013 End: 10-28-2013 take 1 tablet by mouth twice daily RANEXA 500 MG [id number] One tablet by mouth twice daily RANOLAZINE [id number] Divina Giles PA-C sennosides, long term 8.6 mg oral tablet (4 sources) Start: 05-31-2021 End: 06-30-2021 take 2 tablets by mouth twice daily senna (SENOKOT) 8.6 MG tablet Take 2 tablets by mouth 2 times daily 120 tablet 0 05/31/2021 06/30/2021 Active Start: 05-28-2021 End: 05-29-2021 senna (SENOKOT) tablet 17.2 mg Start: 05-24-2021 End: 05-28-2021 senna (SENOKOT) tablet 8.6 m g temazepam 15 mg oral capsule (20 sources) Benzodiazepine Start: 09-21-2020 End: 01-07-2024 take 1 capsule by mouth at bedtime as needed for sleep Temazepam 15 mg capsule Active 15 mg PO AT BEDTIME as needed for Sleep September 21, 2020 12:00am Start: 05-24-2017 End: 09-21-2020 take 2 capsules by mouth at bedtime Temazepam 7.5 MG capsule Discontinued 15 mg PO AT BEDTIME May 24, 2017 12:00am September 21, 2020 3:08pm Start: 05-24-2017 End: 09-21-2020 take 15 mg by mouth at bedtime Temazepam Discontinued 15 MG PO AT BEDTIME May 24, 2017 12:00am September 21, 2020 3:08pm Start: 01-11-2016 take 1 tablet by serafin once daily RESTORIL 30 MG CAPS One tablet by mouth daily every night TEMAZEPAM [id number] Arlene Tavarez MD Start: 07-16-2014 End: 01-10-2016 take 1 tablet by mouth once daily at bedtime as needed TEMAZEPAM 15 MG CAPS One tablet by mouth daily at bedtime as needed TEMAZEPAM [id number] Val Henley RN traZODone hydrochloride 50 mg oral tablet (12 sources) Serotonin Reuptake Inhibitor Start: 03-22-2021 End: 01-07-2024 take 1 tablet by mouth at bedtime Trazodone 50 mg tablet Active 50 mg PO AT BEDTIME March 22, 2021 12:00am Completed/Discontinued Medications Medication Drug Class(es) Dates Sig (Normalized) Sig (Original) acetaminophen 325 mg / HYDROcodone bitartrate 5 mg oral tablet (20 sources) Opioid Agonist Start: 10-05-2020 End: 10-12-2020 take 1-10 tablets by mouth every four hours as needed for pain Hydrocodone-Acetami nophen 1 EACH tablet Discontinued 1 NMA PO EVERY 4 HOURS NEEDED as needed for Pain 1-10 Or Fever 20 06October 05, 2020 October 11, 2020 1:00am October 12, 2020 1:02am Start: 10-05-2020 End: 10-12-2020 Hydrocodone-Acetaminophen Di scontinued 1 EACH PO EVERY 4 HOURS NEEDED 20 October 05, 2020 October 12, 2020 1:02am Start: 08-05-2019 End: 08-14-2019 Hydrocodone-Acetaminophen 1 EACH tablet Discontinued 1 NMA PO EVERY 4 HOURS NEEDED as needed for Pain 14 August 05, 2019 August 09, 2019 12:00am August 14, 2019 12:10am Start: 08-05-2019 End: 08-14-2019 Hydrocodone-Acetaminophen Di scontinued 1 EACH PO EVERY 4 HOURS NEEDED 14 August 05, 2019 August 14, 2019 12:10am Start: 06-26-2019 End: 07-04-2019 Hydrocodone-Acetaminophen 1 EACH tablet Discontinued 1 NMA PO EVERY 6 HOURS NEEDED as needed for Pain 20 June 26, 2019 July 02, 2019 12:00am July 04, 2019 12:09am Start: 06-26-2019 End: 07-04-2019 Hydrocodone-Acetaminophen Di scontinued 1 EACH PO EVERY 6 HOURS NEEDED 20 06June 26, 2019 July 04, 2019 12:09am Start: 10-02-2018 End: 10-05-2018 Hydrocodone-Acetaminophen 1 TABLET tablet Discontinued 1 {tbl} PO EVERY 6 HOURS NEEDED as needed for Pain 09 03October 02, 2018 12:00am October 04, 2018 12:00am October 05, 2018 12:14am Start: 10-02-2018 End: 10-05-2018 take 1 tablet by mouth every six hours as needed Hydrocodone-Acetaminophen Discontinued 1 TABLET PO EVERY 6 HOURS NEEDED 09 03October 02, 2018 12:00am October 05, 2018 12:14am Start: 02-16-2011 VICODIN 5-500 MG TABS As needed HYDROCODONE-ACETAMINOPHEN [id number] Opal Lees Start: 02-16-2011 End: 12-10-2011 VICODIN 5-500 MG TABS As nee ded HYDROCODONE-ACETAMINOPHEN [id number] Khris Spencer MD Start: 02-16-2011 VICODIN 5-500 MG TABS As needed HYDROCODONE-ACETAMINOPHEN [id number] Opal Lees Start: 02-16-2011 End: 12-10-2011 VICODIN 5-500 MG TABS As nee ded HYDROCODONE-ACETAMINOPHEN [id number] Khris Spencer MD aluminum hydroxide 40 mg/ml / magnesium hydroxide 40 mg/ml / simethicone 4 mg/ml oral suspension (1 source) Start: 01-06-2024 End: 01-07-2024 take 30 mL by mouth every six hours as needed alum/mag hydrox.-simethicone oral suspension 30 mL amoxicillin 875 mg / clavulanate 125 mg oral tablet (10 sources) Penicillin-class Antibacterial Start: 05-28-2017 End: 06-10-2017 take 1 tablet by mouth every twelve hours Amoxicillin-Pot Clavulanate 875 MG tablet Discontinued 875 mg PO Q12H May 28, 2017 12:00am June 10, 2017 10:49am aspirin 81 mg chewable tablet (20 sources) Platelet Aggregation Inhibitor, Nonsteroidal Anti-inflammatory Drug Start: 06-12-2024 End: 10-21-2024 take 1 tablet by mouth twice daily Aspirin 81 mg Tablet,Chewable Discontinued 81 mg PO TWICE A DAY June 12, 2024 12:00am October 21, 2024 1:23am Start: 05-24-2021 aspirin EC tab let 81 mg Start: 06-19-2017 take 1 tablet by serafin th once daily ADULT ASPIRIN EC LOW STRENGTH 81 MG TBEC One tablet by mouth daily ASPIRIN [id number] Cary eGorge MD Start: 06-09-2017 End: 01-07-2024 take 1 tablet by mouth at bedtime Aspirin 81 MG tablet,chewable Active 81 mg PO AT BEDTIME June 09, 2017 12:00am On Hold: Resume on 12/02/24. will stop 5 day prior Start: 10-05-2013 End: 05-28-2017 take 1 tablet by mouth at bedtime Aspirin 81 MG Tab.Chew Discontinued 81 mg PO AT BEDTIME October 05, 2013 1:00am May 28, 2017 2:35pm Start: 10-21-2012 take 1 tablet by serafin th once daily ADULT ASPIRIN EC LOW STRENGTH 81 MG TBEC One tablet by mouth daily ASPIRIN [id number] Cary George MD Start: 02-16-2011 take 1 tablet by serafin th once daily ASPIRIN 325 MG TABS One tablet by mouth daily ASPIRIN [id number] Opal Lees aspirin 81 MG ta blet Take 25 mg by mouth daily 0 Active betamethasone 3 mg/ml / betamethasone acetate 3 mg/ml injectable suspension (11 sources) Corticosteroid Start: 03-30-2024 End: 03-30-2024 betamethasone acetate-betamethasone sodium phosphate (Celestone) injection 3 mg Start: 08-26-2023 betamethasone acetate-betamethasone sodium phosphate (Celestone) injection 3 mg Start: 02-11-2023 End: 02-11-2023 betamethasone acetate-betame thasone sodium phosphate (Celestone) injection 3 mg Start: 02-11-2023 End: 02-11-2023 betamethasone acetate-betame thasone sodium phosphate (Celestone) injection 3 mg Start: 02-11-2023 End: 02-11-2023 betamethasone acetate-betame thasone sodium phosphate (Celestone) injection 3 mg Start: 02-11-2023 End: 02-11-2023 betamethasone acetate-betame thasone sodium phosphate (Celestone) injection 3 mg Brompheniramine (20 sources) Start: 02-16-2011 End: 07-16-2014 take 1 tablet by mouth twice daily LODRANE XR 8MG/5MI One tablet by mouth twice daily LODRANE XR 8MG/5MI Speedy Mtz MD Start: 02-16-2011 take 1 tablet by serafin th twice daily LODRANE XR 8MG/5MI One tablet by mouth twice daily LODRANE XR 8MG/5MI Opal Lees Start: 02-16-2011 take 1 tablet by serafin th twice daily LODRANE XR 8MG/5MI One tablet by mouth twice daily LODRANE XR 8MG/5MI Opal Lees Start: 02-16-2011 End: 07-16-2014 take 1 tablet by mouth twice daily LODRANE XR 8MG/5MI One tablet by mouth twice daily LODRANE XR 8MG/5MI Speedy Mtz MD budesonide 0.032 mg/actuat metered dose nasal spray (16 sources) Corticosteroid Start: 02-16-2011 RHINOCORT AQUA 32 MCG/ACT SUSP (0.032mg/inh) Take as directed BUDESONIDE [id number] Opal Lees 12 hr buPROPion hydrochloride 150 mg extended release oral tablet (12 sources) Aminoketone Start: 01-08-2018 End: 05-27-2024 take 1 tablet by mouth twice daily Bupropion Hcl 150 mg tablet extended release 12 hr Discontinued 150 mg PO TWICE A DAY January 08, 2018 1:00am May 27, 2024 10:30am calcium chloride 0.0014 meq/ml / potassium chloride 0.004 meq/ml / sodium chloride 0.103 meq/ml / sodium lactate 0.028 meq/ml injectable solution (1 source) Start: 05-24-2021 End: 05-25-2021 Intravenous, at 75 mL/hr, CONTINUOUS, Starting on Sat05/24/21 at 0215 ceFAZolin (ANCEF) 3,000 mg in dextrose 5 % 100 mL IVPB (1 source) Start: 05-24-2021 End: 05-25-2021 3,000 mg, Intravenous, EVERY 8 HOURS, 2 doses, First dose on Sat05/24/21 at 2300, Last dose on Sat05/25/21 at 0700 ciprofloxacin 500 mg oral tablet (11 sources) Quinolone Antimicrobial Start: 11-18-2024 End: 05-03-2025 take 1 tablet by mouth twice daily Ciprofloxacin Hcl (Cipro) 500 mg tablet Discontinued 500 mg PO TWICE A DAY November 18, 2024 1:00am May 03, 2025 2:11pm Start: 08-05-2019 End: 09-02-2019 take 1 tablet by mouth twice daily Ciprofloxacin Hcl 500 MG tablet Discontinued 500 mg PO TWICE A DAY August 05, 2019 12:00am September 02, 2019 2:02pm citalopram 10 mg oral tablet (20 sources) Serotonin Reuptake Inhibitor Start: 07-16-2014 End: 01-10-2016 take 1 tablet by mouth once daily CITALOPRAM HYDROBROMIDE 10 MG TABS One tablet by mouth daily CITALOPRAM HYDROBROMIDE [id number] Val Henley RN clindamycin 150 mg oral capsule (10 sources) Lincosamide Antibacterial Start: 02-12-2019 End: 04-14-2019 take 2 capsules by mouth three times daily Clindamycin Hcl 150 MG capsule Discontinued 300 mg PO THREE TIMES A DAY 60 February 12, 2019 12:00am April 14, 2019 8:40am Start: 02-12-2019 End: 04-14-2019 take 300 mg by mouth three times daily Clindamycin Hcl Discontinued 300 MG PO THREE TIMES A DAY 60 February 12, 2019 12:00am April 14, 2019 8:40am clotrimazole 10 mg oral lozenge (20 sources) Azole Antifungal Start: 01-10-2016 End: 06-01-2016 CLOTRIMAZOLE 10 MG TROC 5 x day CLOTRIMAZOLE [id number] Wilda E Tullar clotrimazole (LO TRIMIN) 1 % cream Apply topically as needed Apply topically 2 times daily. 0 Active docusate sodium 100 mg oral capsule (5 sources) Start: 01-07-2024 End: 01-07-2024 take 200 mg by mouth once daily 200 mg, Oral, DAILY, First dose on Sat01/07/24 at 0900, Until Discontinued Start: 05-28-2021 docusate sodiu m (COLACE) capsule 200 mg Start: 05-24-2021 End: 05-28-2021 docusate sodium (COLACE) cap hilario 100 mg docusate 100 MG capsule Take 2 capsules by mouth. 0 Active doxycycline monohydrate 100 mg oral capsule (20 sources) Tetracycline-class Drug Start: 02-27-2015 End: 04-05-2015 take 1 capsule by mouth once daily Doxycycline Hyclate 100 MG capsule Discontinued 100 mg PO DAILY February 27, 2015 12:00am April 05, 2015 9:05am Start: 03-12-2011 End: 03-22-2011 DOXYCYCLINE HYCLATE 100 MG C APS take 1 cap twice daily for 10 days DOXYCYCLINE HYCLATE [id number] Gina Larsen CNP 0.4 ml enoxaparin sodium 100 mg/ml prefilled syringe (3 sources) Low Molecular Weight Heparin Start: 05-31-2021 enoxaparin (LOVENOX) 40 MG/0.4ML injection Inject 0.4 mLs into the skin 2 times daily Continue while in rehab, discontinue on discharge to home 0 05/31/2021 Active Start: 05-30-2021 enoxaparin (LO VENOX) injection 40 mg Start: 05-25-2021 End: 05-30-2021 enoxaparin (LOVENOX) injecti on 30 mg esomeprazole 40 mg delayed release oral capsule (16 sources) Proton Pump Inhibitor Start: 02-16-2011 take 1 tablet by mouth once daily NEXIUM 40 MG CPDR One tablet by mouth daily ESOMEPRAZOLE MAGNESIUM [id number] Opal Lees etodolac 400 mg oral tablet (20 sources) Nonsteroidal Anti-inflammatory Drug Start: 07-16-2014 End: 01-10-2016 take 1 tablet by mouth twice daily as needed ETODOLAC 400 MG TABS One tablet by mouth twice daily as needed ETODOLAC [id number] Val Henley RN fexofenadine hydrochloride 180 mg oral tablet (4 sources) Histamine-1 Receptor Antagonist Start: 03-27-2023 End: 10-21-2024 take 1 tablet by mouth once daily Fexofenadine (Romana Allergy) 180 mg tablet Discontinued 180 mg PO DAILY March 27, 2023 12:00am October 21, 2024 1:26am fluconazole 200 mg oral tablet (16 sources) Azole Antifungal Start: 01-11-2016 End: 01-16-2016 take 1 tablet by mouth once daily FLUCONAZOLE 200 MG TABS 1 po q d FLUCONAZOLE [id number] Arlene Tavarez MD 1 ml HYDROmorphone hydrochloride 1 mg/ml cartridge (2 sources) Opioid Agonist Start: 01-06-2024 End: 01-07-2024 take 0.2 mg intravenously every two hours as needed HYDROmorphone (DILAUDID) injection 0.2 mg Start: 05-24-2021 End: 05-24-2021 HYDROmorphone (DILAUDID) inj ection 0.5 mg KLOR-CON 20 CR-TABS (POTASSIUM CHLORIDE CR-TABS) (16 sources) Start: 12-10-2011 take 1 tablet by mouth once daily KLOR-CON 20 CR-TABS (POTASSIUM CHLORIDE CR-TABS) One tablet by mouth daily Speedy Mtz MD Start: 12-10-2011 take 1 tablet by [facility] once daily KLOR-CON 20 CR-TABS (POTASSIUM CHLORIDE CR-TABS) One tablet by mouth daily Speedy Mtz MD levocetirizine dihydrochloride 5 mg oral tablet (9 sources) Histamine-1 Receptor Antagonist Start: 06-19-2017 take 1 tablet by mouth once daily LEVOCETIRIZINE DIHYDROCHLORIDE 5 MG TABS One tablet by mouth daily LEVOCETIRIZINE DIHYDROCHLORIDE [id number] Cary George MD levoFLOXacin 500 mg oral tablet (16 sources) Quinolone Antimicrobial Start: 01-07-2016 End: 01-14-2016 take 1 tablet by mouth once daily LEVAQUIN 500 MG TABS One tablet by mouth daily LEVOFLOXACIN [id number] Wildaalbino Wise 10 ml lidocaine hydrochloride 10 mg/ml injection (11 sources) Antiarrhythmic, Amide Local Anesthetic Start: 03-30-2024 End: 03-30-2024 lidocaine (Xylocaine) 1 % injection 0.5 mL Start: 08-26-2023 lidocaine (Xyl ocaine) 1 % injection 0.5 mL Start: 02-11-2023 End: 02-11-2023 lidocaine (Xylocaine) 1 % in jection 0.5 mL Start: 02-11-2023 End: 02-11-2023 lidocaine (Xylocaine) 1 % in jection 0.5 mL Start: 02-11-2023 End: 02-11-2023 lidocaine (Xylocaine) 1 % in jection 0.5 mL Start: 02-11-2023 End: 02-11-2023 lidocaine (Xylocaine) 1 % in jection 0.5 mL lisinopril 10 mg oral tablet (1 source) Angiotensin Converting Enzyme Inhibitor Start: 01-07-2024 End: 01-07-2024 take 10 mg by mouth once daily 10 mg, Oral, DAILY, First dose on Sat01/07/24 at 0900, Until Discontinued loratadine 10 mg oral tablet (20 sources) Start: 06-19-2017 End: 03-27-2023 take 1 tablet by mouth once daily Loratadine 10 MG tablet Discontinued 10 mg PO DAILY December 26, 2019 1:00am March 27, 2023 1:35pm Start: 10-05-2013 End: 10-13-2013 take 1 tablet by mouth once daily Loratadine (Claritin) 10 MG tablet Discontinued 10 mg PO DAILY October 05, 2013 1:00am October 13, 2013 4:36am magnesium citrate 58.2 mg/ml oral solution (1 source) Start: 05-30-2021 End: 05-30-2021 magnesium citrate solution 296 mL magnesium oxide 400 mg oral tablet (1 source) Start: 01-06-2024 End: 01-07-2024 magnesium oxide (MAG-OX) tablet 800 mg 50 ml magnesium sulfate 80 mg/ml injection (1 source) Start: 01-06-2024 End: 01-07-2024 Magnesium sulfate 4 g in sterile water 50 ml premix IVPB melatonin 3 mg oral tablet (1 source) Start: 01-06-2024 End: 01-07-2024 Melatonin tablet 3 mg meloxicam 15 mg oral tablet (20 sources) Nonsteroidal Anti-inflammatory Drug Start: 01-11-2016 End: 05-31-2021 take 1 tablet by mouth once daily Meloxicam 15 MG tablet Discontinued 15 mg PO DAILY May 24, 2017 12:00am February 06, 2019 2:57pm Start: 06-01-2015 End: 01-07-2016 take 1 tablet by mouth once daily Meloxicam 15 MG tablet Discontinued 15 mg PO DAILY June 01, 2015 12:00am January 07, 2016 1:54pm 2 ml midazolam 1 mg/ml injection (1 source) Benzodiazepine Start: 05-24-2021 End: 05-24-2021 midazolam (VERSED) 2 MG/2ML injection montelukast 10 mg oral tablet (20 sources) Leukotriene Receptor Antagonist Start: 02-16-2011 End: 04-14-2019 take 1 tablet by mouth once daily Montelukast 10 MG tablet Discontinued 10 mg PO DAILY October 05, 2013 1:00am April 14, 2019 8:42am MULTIPLE VITAMIN (1 source) Start: 02-16-2011 take 1 tablet by mouth once daily MULTIVITAMINS TABS One tablet by mouth daily MULTIPLE VITAMIN [id number] Opal Lees MULTIPLE VITAMIN (15 sources) Start: 02-16-2011 take 1 tablet by mouth once daily MULTIVITAMINS TABS One tablet by mouth daily MULTIPLE VITAMIN [id number] Opal Lees naproxen 500 mg oral tablet (20 sources) Nonsteroidal Anti-inflammatory Drug Start: 02-16-2011 End: 07-16-2014 take 1 tablet by mouth twice daily NAPROXEN 500 MG TABS One tablet by mouth twice daily NAPROXEN [id number] Opal Lees 24 hr nicotine 0.583 mg/hr transdermal system (20 sources) Cholinergic Nicotinic Agonist Start: 12-14-2016 End: 06-19-2017 NICODERM CQ 14 MG/24HR PT24 Apply once a day for 2 weeks or as directed NICOTINE [id number] Cary George MD nitroglycerin 0.4 mg sublingual tablet (20 sources) Nitrate Vasodilator Start: 10-17-2022 End: 10-21-2024 Nitroglycerin 0.4 mg tablet, sublingual Discontinued 0.4 mg SL Q5M as needed for chest pain October 17, 2022 1:00am October 21, 2024 1:26am do not exceed 3 doses per episode Start: 10-17-2022 Nitroglycerin Active 0.4 MG SL Q5M October 17, 2022 1:00am do not exceed 3 doses per episode Start: 01-06-2018 End: 01-15-2018 Nitroglycerin 0.4 mg tablet, sublingual Discontinued 0.4 mg SL Q5M as needed January 06, 2018 1:00am January 15, 2018 10:16am Start: 01-06-2018 End: 01-15-2018 Nitroglycerin Discontinued 0 .4 MG SL Q5M January 06, 2018 1:00am January 15, 2018 10:16am Start: 02-16-2011 NITROGLYCERIN 0.4 MG SUBL 1 tablet under the tongue every 5 minutes times 3 as needed for chest pain. NITROGLYCERIN [id number] Ginny Alanis RN nystatin 293399 unt/ml oral suspension (20 sources) Polyene Antifungal Start: 06-19-2017 End: 01-08-2018 take [id number] [IU] by mouth three times daily Nystatin 100,000 UNIT/ML suspension Discontinued 477679 U PO THREE TIMES A DAY July 30, 2017 12:00am January 08, 2018 3:34pm Start: 01-07-2016 End: 06-01-2016 NYSTATIN 016929 UNIT/GM POWD three times a day NYSTATIN [id number] Wilda Wise Start: 01-07-2016 End: 06-01-2016 NYSTATIN 194982 UNIT/GM POWD three times a day NYSTATIN [id number] Wilda Wise omeprazole 40 mg delayed release oral capsule (20 sources) Proton Pump Inhibitor Start: 10-21-2012 End: 01-10-2016 take 1 tablet by mouth once daily OMEPRAZOLE 40 MG CPDR One tablet by mouth daily OMEPRAZOLE [id number] Wilda Wise Start: 05-03-2011 take 1 tablet by serafin th once daily OMEPRAZOLE 20 MG CPDR One tablet by mouth daily OMEPRAZOLE [id number] Opal Nilam Lees Start: 02-16-2011 End: 01-08-2018 take 1 capsule by mouth twice daily Omeprazole 40 MG capsule Discontinued 40 mg PO TWICE A DAY October 05, 2013 1:00am January 08, 2018 12:09pm 2 ml ondansetron 2 mg/ml injection (12 sources) Serotonin-3 Receptor Antagonist Start: 01-06-2024 End: 01-07-2024 Ondansetron 4mg/2ml (ZOFRAN) injection 4 mg Start: 05-24-2021 4 mg, Intraven ous, EVERY 6 HOURS PRN, Nausea, Vomiting, Starting on Sat05/24/21 at 0152 Start: 11-04-2017 End: 01-08-2018 take 1 tablet by mouth every eight hours as needed for nausea Ondansetron 4 MG tablet Discontinued 4 mg PO EVERY 8 HOURS NEEDED as needed for Nausea November 04, 2017 1:00am January 08, 2018 12:09pm 2 ml penicillin g benzathine 293563 unt/ml / penicillin g procaine 902675 unt/ml prefilled syringe (10 sources) Penicillin-class Antibacterial Start: 07-11-2018 End: 04-14-2019 Penicillin G Benzathin,Procain 1,200,000 UNIT/2 ML syringe Discontinued [id number] U IM EVERY MONTH July 11, 2018 12:00am April 14, 2019 8:42am polyethylene glycol 3350 34567 mg powder for oral solution (20 sources) Osmotic Laxative Start: 01-06-2024 End: 01-07-2024 Polyethylene glycol (MIRALAX) packet 17 g Start: 05-24-2021 End: 06-30-2021 take 17 g by mouth twice daily polyethylene glycol (GL YCOLAX) 17 g packet Take 17 g by mouth 2 times daily 527 g 1 05/31/2021 06/30/2021 Active Start: 02-16-2011 take 1 tablet by serafin th twice daily MIRALAX PACK One tablet by mouth twice daily (0.25) POLYETHYLENE GLYCOL 3350 [id number] Opal Lees Start: 02-16-2011 End: 12-10-2011 take 1 tablet by mouth twice daily MIRALAX PACK One tablet by mouth twice daily (0.25) POLYETHYLENE GLYCOL 3350 [id number] Khris Spencer MD Start: 02-16-2011 take 1 tablet by serafin th twice daily MIRALAX PACK One tablet by mouth twice daily (0.25) POLYETHYLENE GLYCOL 3350 [id number] Opal Lees Start: 02-16-2011 End: 12-10-2011 take 1 tablet by mouth twice daily MIRALAX PACK One tablet by mouth twice daily (0.25) POLYETHYLENE GLYCOL 3350 [id number] Khris Spencer MD POLYETHYLENE GLYCOL 3350 (2 sources) Start: 02-16-2011 End: 12-10-2011 take 1 tablet by mouth twice daily MIRALAX PACK One tablet by mouth twice daily (0.25) POLYETHYLENE GLYCOL 3350 [id number] Khris Spencer MD Start: 02-16-2011 take 1 tablet by serafin th twice daily MIRALAX PACK One tablet by mouth twice daily (0.25) POLYETHYLENE GLYCOL 3350 [id number] Opal Lees pramipexole dihydrochloride 0.5 mg oral tablet (20 sources) Nonergot Dopamine Agonist Start: 12-10-2011 End: 05-04-2015 take 2 tablets by mouth at bedtime MIRAPEX 0.125 MG TABS 2 tablets by mouth at bedtime PRAMIPEXOLE DIHYDROCHLORIDE [id number] Speedy Mtz MD Start: 12-10-2011 take 1 tablet by serafin th at bedtime MIRAPEX 0.5 MG TABS One tablet by mouth at bedtime. PRAMIPEXOLE DIHYDROCHLORIDE [id number] Khris Spencer MD predniSONE 20 mg oral tablet (7 sources) Start: 06-29-2024 End: 11-04-2024 take 2 tablets by mouth once daily Prednisone 20 mg tablet Discontinued 40 mg PO DAILY June 29, 2024 12:00am November 04, 2024 3:36pm Start: 10-27-2022 End: 05-27-2024 take 2 tablets by mouth once daily Prednisone 20 mg tablet Discontinued 40 mg PO DAILY 09 05October 27, 2022 1:00am May 27, 2024 11:08am Start: 10-27-2022 take 40 mg by mouth once daily Prednisone Active 40 MG PO DAILY 09 05October 27, 2022 1:00am pseudoephedrine hydrochloride 30 mg oral tablet (20 sources) alpha-Adrenergic Agonist Start: 07-16-2014 End: 08-03-2015 take 30 mg by mouth twice daily Sudogest Discontinued 30 mg PO TWICE A DAY November 02, 2014 1:00am April 05, 2015 9:02am silodosin 8 mg oral capsule (20 sources) alpha-Adrenergic Sasha Start: 11-06-2013 End: 01-10-2015 take 1 tablet by mouth at bedtime RAPAFLO 8 MG CAPS One tablet by mouth at bedtime. SILODOSIN [id number] Speedy Mtz MD 1000 ml sodium chloride 9 mg/ml injection (5 sources) Start: 01-06-2024 End: 01-07-2024 Sodium chloride 0.9% IV solution 250 mL Start: 01-06-2024 End: 01-06-2024 Sodium chloride 0.9% IV solu tion Start: 05-24-2021 take 1 dose intraven ously twice daily 5-40 mL, Intravenous, EVERY 12 HOURS SCHEDULED (2 times per day), First dose on Sat05/24/21 at 0900 For Line Patency: Peripheral IV = 5 [...] Midline or Central Line = 20 mL/lumen Start: 05-24-2021 take 25 mL intraveno usly every hour as needed 25 mL, Intravenous, at 100 mL/hr, PRN, If patient receiving piggyback infusions without ordered maintenance IV fluids or with frequent/long duration piggyback infusions, Starting on Sat05/24/21 at 0138 Administer at the same rate as the piggyback being infused. Start: 05-24-2021 take 5-40 mL intrave nously once as needed 5-40 mL, Intravenous, PRN, Line Care, After every IV line use, Starting on Sat05/24/21 at 0138 For Line Patency: Peripheral IV = 5 [...] Midline or Central Line = 20 mL/lumen STOOL SOFTENER (9 sources) Start: 06-19-2017 STOOL SOFTENER STOOL SOFTENER Cary George MD Start: 06-19-2017 STOOL SOFTENER STOOL SOFTENER Cary George MD sucralfate 1000 mg oral tablet (10 sources) Aluminum Complex Start: 07-02-2017 End: 01-08-2018 take 1 tablet by mouth 1 hour(s) before bedtime Sucralfate 1 GM tablet Discontinued 1 g PO BEFORE MEALS AND AT BEDTIME 120 July 02, 2017 12:00am January 08, 2018 3:34pm Take one tab 1 hr before meals and at bedtime tamsulosin hydrochloride 0.4 mg oral capsule (20 sources) alpha-Adrenergi c Sasha Start: 08-30-2023 End: 10-21-2024 take 1 capsule by mouth once daily Tamsulosin 0.4 mg capsule Discontinued 0.4 mg PO DAILY August 30, 2023 12:00am October 21, 2024 1:26am Start: 04-20-2013 End: 07-16-2014 take 1 tablet by mouth once daily FLOMAX 0.4 MG CAPS One tablet by mouth daily TAMSULOSIN HCL [id number] Speedy Mtz MD triamcinolone acetonide 0.055 mg/actuat metered dose nasal spray (20 sources) Corticosteroid Start: 10-30-2012 End: 01-10-2016 take 2 spray(s) nasal route once daily NASACORT AQ 55 MCG/ACT AERO two sprays in each nostril once a day TRIAMCINOLONE ACETONIDE [id number] Wilda Wise Start: 10-30-2012 take 2 spray(s) nasa l route once daily NASACORT AQ 55 MCG/ACT AERS two sprays in each nostril once a day TRIAMCINOLONE ACETONIDE [id number] Peg Deng RN Start: 10-30-2012 take 2 spray(s) nasa l route once daily NASACORT AQ 55 MCG/ACT AERS two sprays in each nostril once a day TRIAMCINOLONE ACETONIDE [id number] Val Henley RN Start: 10-30-2012 End: 01-10-2016 take 2 spray(s) nasal route once daily NASACORT AQ 55 MCG/ACT AERS two sprays in each nostril once a day TRIAMCINOLONE ACETONIDE [id number] Wilda Wise Vancomycin HCl in NaCl (Vancocin) 1,500 mg 290 ml premade IVPB (1 source) Start: 01-06-2024 End: 01-06-2024 Vancomycin HCl in NaCl (Vancocin) 1,500 mg 290 ml premade IVPB xeroform petrolat gauze 1X8 external pads (2 sources) Start: 05-24-2021 End: 05-24-2021 xeroform petrolat gauze 1X8 external pads Start: 05-24-2021 End: 05-24-2021 xeroform petrolat gauze 1X8 external pads Problems Active Problems Problem Classification Problem Date Documented Date Episodic/Chronic Abdominal pain (10 sources) Left flank pain; Translations: [Unspecified abdominal pain] 01-24-2022 Episodic Acute 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 (20 sources) ST elevation (STEMI) 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 involving other coronary artery of anterior wall; Translations: [Acute 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 of other anterior wall, subsequent episode of care] Onset: 02-16-2011 Resolved: 06-01-2016 02-16-2011 Chronic Cardiac dysrhythmias (2 sources) Palpitations; Translations: [Palpitations] Onset: 11-21-2023 Episodic Chronic obstructive pulmonary disease and bronchiectasis (10 sources) Bronchitis; Translations: [Bronchitis, not specified as acute or chronic] 04-21-2019 Episodic Complication of device; implant or graft (20 sources) Arteriosclerosis of coronary artery bypass graft; Translations: [Atherosclerosis of coronary artery bypass graft(s) without angina pectoris] Onset: 02-16-2011 Resolved: 06-01-2016 02-16-2011 Chronic Complication of device; implant or graft (3 sources) Disorder of cardiac pacemaker electrode; Translations: [Breakdown (mechanical) of cardiac electrode, initial encounter] Onset: 11-22-2023 01-07-2024 Episodic Conduction disorders (20 sources) Automatic implantable cardiac defibrillator in situ; Translations: [Presence of automatic (implantable) cardiac defibrillator] Onset: 08-02-2010 Chronic Comment on above: ICD Implant 2009 Congestive heart failure; nonhypertensive (20 sources) Chronic systolic heart failure; Translations: [Chronic systolic (congestive) heart failure] Onset: 05-29-2021 Chronic Coronary atherosclerosis and other heart disease (20 sources) Coronary atherosclerosis; Translations: [Atherosclerotic heart disease of alutiiq coronary artery without angina pectoris] Onset: 02-16-2011 Resolved: 11-30-2016 11-30-2016 Chronic Comment on above: 2005 CABG x2- PARK to LAD , SARIAH to OM 06/01/05; PTCA/stent to prox LAD 02/02/05; PTCA/stent instent restenosis of prox LAD 10/15/13 EF 45%. Stage I chiu tolic dysfunction Diabetes mellitus without complication (1 source) Type 2 diabetes mellitus without complications; Translations: [Type 2 diabetes mellitus without complications] Onset: 01-11-2025 Chronic Disorders of lipid metabolism (20 sources) Hyperlipidemia; Translations: [Hyperlipidemia, unspecified] Onset: 02-16-2011 02-16-2011 Chronic E Codes: Fall (10 sources) Fall; Translations: [Unspecified fall, initial encounter] 05-23-2021 Episodic Esophageal disorders (20 sources) Gastroesophageal reflux disease; Translations: [Gastro-esophageal reflux disease without esophagitis] Onset: 06-19-2017 06-19-2017 Chronic Essential hypertension (20 sources) Hypertensive disorder; Translations: [Essential (primary) hypertension] Onset: 02-16-2011 02-16-2011 Chronic Comment on above: CONTROLLED WITH MED Fracture of upper limb (20 sources) Closed fracture of lower end of humerus; Translations: [Unspecified physeal fracture of lower end of humerus, unspecified arm, initial encounter for closed fracture] Onset: 05-24-2021 Episodic Immunizations and screening for infectious disease (10 sources) Suspected disease caused by 2019-nCoV; Translations: [Suspected 2019-nCoV infection] 07-18-2020 Episodic Joint disorders and dislocations; trauma-related (1 source) Unspecified disorder of patella, left knee; Translations: [Unspecified disorder of patella, left knee] Onset: 06-25-2024 Chronic Malaise and fatigue (20 sources) Malaise and fatigue; Translations: [Other malaise and fatigue] Onset: 01-10-2015 01-10-2015 Episodic Noninfectious gastroenteritis (10 sources) Gastroenteritis; Translations: [Noninfective gastroenteritis and colitis, unspecified] 04-21-2019 Episodic Nonspecific chest pain (10 sources) Chest pain; Translations: [Chest pain, unspecified] 02-18-2021 Episodic Osteoarthritis (18 sources) Osteoarthritis of left hip joint; Translations: [Unilateral primary osteoarthritis, left hip] Onset: 10-05-2015 10-05-2015 Chronic Other aftercare (9 sources) Patient encounter status; Translations: [Other prison (current) drug therapy] 04-21-2019 Episodic Other aftercare (1 source) Long-term current use of drug therapy; Translations: [Other termite helper (current) drug therapy] 01-08-2018 Episodic Other bone disease and musculoskeletal deformities (6 sources) History of amputation of right leg through femur; Translations: [Acquired absence of right leg above knee] Onset: 04-23-2019 04-25-2019 Chronic Other connective tissue disease (10 sources) Neurological symptom; Translations: [Unspecified symptoms and signs involving the nervous system] 02-18-2021 Episodic Other connective tissue disease (7 sources) Lateral epicondylitis of left humerus; Translations: [Lateral epicondylitis, left elbow] 08-09-2022 Episodic Other connective tissue disease (2 sources) Lateral epicondylitis, left elbow; Translations: [Lateral epicondylitis] Episodic Other connective tissue disease (1 source) Prepatellar bursitis of left knee; Translations: [Prepatellar bursitis, left knee] 07-07-2024 Episodic Other diseases of kidney and ureters (1 source) Small left kidney; Translations: [Small kidney, unilateral] 11-18-2024 Episodic Other diseases of veins and lymphatics (18 sources) Lymphedema, not elsewhere classified; Translations: [Lymphedema of lower extremity] Onset: 08-06-2013 04-03-2017 Chronic Other diseases of veins and lymphatics (11 sources) Lymphedema of right lower limb; Translations: [Lymphedema, not elsewhere classified] Onset: 01-26-2019 Resolved: 04-25-2019 04-25-2019 Chronic Other diseases of veins and [...] insufficiency (chronic) (peripheral)] Onset: 11-21-2023 Episodic Other injuries and conditions due to external causes (10 sources) Foreign body in esophagus; Translations: [Unspecified foreign body in esophagus causing other injury, initial encounter] 05-09-2021 Episodic Other injuries and conditions due to external causes (9 sources) Radiation injury; Translations: [Radiation sickness, unspecified, initial encounter] 04-21-2019 Episodic Other injuries and conditions due to external causes (10 sources) Systemic inflammatory response syndrome; Translations: [Systemic inflammatory response syndrome (SIRS) of non-infectious origin without acute organ dysfunction] 04-21-2019 Episodic Other injuries and conditions due to external causes (1 source) Injury by causative force; Translations: [Radiation sickness, unspecified, initial encounter] 01-08-2018 Episodic Comment on above: late effect radiatio n right lower extremity Other lower respiratory disease (20 sources) Dyspnea; Translations: [Shortness of breath] Onset: 07-01-2013 07-01-2013 Episodic Other lower respiratory disease (6 sources) Wheezing; Translations: [Wheezing] 11-04-2022 Episodic Other nervous system disorders (10 sources) Paresthesia of left upper limb; Translations: [Paresthesia of skin] 02-18-2021 Episodic Other non-traumatic joint disorders (7 sources) Pain in elbow; Translations: [Pain in left elbow] 08-09-2022 Episodic Other non-traumatic joint disorders (2 sources) Pain in left elbow; Translations: [Pain in joint, upper arm] Episodic Other nutritional; endocrine; and metabolic disorders (16 sources) Morbid obesity; Translations: [Morbid (severe) obesity due to excess calories] Onset: 04-03-2017 04-03-2017 Chronic Other nutritional; endocrine; and metabolic disorders (16 sources) Body mass index (BMI) 40.0-44.9, adult; Translations: [Body Mass Index 40.0-44.9, adult] Onset: 10-07-2013 10-07-2013 Chronic Other nutritional; endocrine; and metabolic disorders (11 sources) Body mass index 40+ - severely obese; Translations: [Morbid (severe) obesity due to excess calories] 04-21-2019 Chronic Other nutritional; endocrine; and metabolic disorders (11 sources) Body mass index 30+ - obesity; Translations: [Obesity, unspecified] 04-21-2019 Chronic Other nutritional; endocrine; and metabolic disorders (3 sources) Obesity, unspecified; Translations: [Obesity, unspecified] Onset: 05-03-2025 09-10-2023 Chronic Other upper respiratory infections (16 sources) Upper respiratory infection; Translations: [Acute upper respiratory infection, unspecified] 07-18-2020 Episodic Amna-; endo-; and myocarditis; cardiomyopathy (except that caused by tuberculosis or sexually transmitted disease) (20 sources) Cardiomyopathy in diseases classified elsewhere; Translations: [Cardiomyopathy in other diseases classified elsewhere] Onset: 02-16-2011 Resolved: 06-01-2016 06-01-2016 Chronic Skin and subcutaneous tissue infections (20 sources) Cellulitis of lower limb; Translations: [Cellulitis and abscess of foot, except toes] Onset: 03-12-2011 01-12-2016 Episodic Spondylosis; intervertebral disc disorders; other back problems (1 source) Low back pain; Translations: [Low back pain] 11-03-2024 Episodic Superficial injury; contusion (1 source) Contusion of right shoulder; Translations: [Contusion of right shoulder, initial encounter] 07-07-2024 Episodic Unclassified (2 sources) Disorder of cardiovascular system; Translations: [Unspecified disorder of circulatory system] Onset: 02-16-2011 Resolved: 06-01-2016 02-16-2011 Chronic Unclassified (1 source) Implantation of automatic cardiac defibrillator ; Translations: [Presence of automatic (implantable) cardiac defibrillator] Onset: 02-16-2011 02-16-2011 Unclassified (1 source) Long-term drug therapy; Translations: [Other termite helper (current) drug therapy] Onset: 02-16-2011 02-16-2011 Unclassified (1 source) Aftercare ; Translations: [Encounter for other specified surgical aftercare] Onset: 06-05-2017 07-07-2017 Unclassified (1 source) Low back pain, unspecified; Translations: [Low back pain, unspecified] Onset: 01-11-2025 Viral infection (10 sources) Disease caused by 2019-nCoV; Translations: [COVID-19] 12-14-2021 Episodic Past or Other Problems Problem Classification Problem Date Documented Date Episodic/Chronic Bacterial infection; unspecified site (7 sources) Methicillin resistant Staphylococcus aureus infection; Translations: [Methicillin resistant Staphylococcus aureus infection, unspecified site] Onset: 04-25-2019 Resolved: 04-25-2019 04-25-2019 Episodic Biliary tract disease (9 sources) Gallstone; Translations: [Calculus of gallbladder without cholecystitis without obstruction] Onset: 06-19-2017 06-19-2017 Episodic Calculus of urinary tract (13 sources) 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; Translations: [Calculus of kidney] Onset: 01-11-2025 02-18-2021 Episodic Cancer of bone and connective tissue (17 sources) Sarcoma; 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] Onset: 10-04-2015 Resolved: 04-25-2019 04-03-2017 Chronic Complications of surgical procedures or medical care (1 source) Wound discharge; Translations: [Other complications of procedures, not elsewhere classified, initial encounter] Resolved: 04-25-2019 04-25-2019 Episodic Congestive heart failure; nonhypertensive (10 sources) Congestive heart failure; nonhypertensive 04-21-2019 Coronary atherosclerosis and other heart disease (20 sources) History of 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; Translations: [Presence of aortocoronary bypass graft] Onset: 06-01-2005 02-16-2011 Episodic Comment on above: PTCA/stent to prox L AD 02/02/05; PTCA/stent instent restenosis of prox LAD 10/15/13 Diabetes mellitus without complication (2 sources) Hyperglycemia; Translations: [Hyperglycemia, unspecified] Onset: 06-15-2024 05-21-2024 Episodic Neoplasms of unspecified nature or uncertain behavior (20 sources) Neoplasm of soft tissue; 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] Onset: 05-15-2017 05-18-2017 Episodic Open wounds of extremities (16 sources) Open wound of foot except toes with complication; Translations: [Laceration with foreign body, unspecified foot, initial encounter] Onset: 01-11-2016 01-12-2016 Episodic Other aftercare (15 sources) Long-term drug therapy; Translations: [Other prison (current) drug therapy] Onset: 02-16-2011 02-16-2011 Episodic Other circulatory disease (20 sources) Disorder of cardiovascular system; Translations: [Unspecified disorder of circulatory system] Onset: 02-16-2011 Resolved: 06-01-2016 06-01-2016 Episodic Other injuries and conditions due to external causes (12 sources) Late effect of radiation; Translations: [Radiation sickness, unspecified, sequela] Onset: 05-15-2017 05-28-2017 Episodic Other lower respiratory disease (1 source) Shortness of breath; Translations: [Shortness of breath] Onset: 05-21-2024 Episodic Other nervous system disorders (7 sources) Acute pain due to injury; Translations: [Acute pain due to trauma] Onset: 05-25-2021 Episodic Other non-traumatic joint disorders (1 source) Pain in right shoulder; Translations: [Pain in right shoulder] Onset: 08-05-2024 Episodic Other non-traumatic joint disorders (1 source) Pain in left knee; Translations: [Pain in left knee] Onset: 01-11-2025 Episodic Other skin disorders (13 sources) Hyperkeratosis; [...] of nicotine dependence] Onset: 05-15-2017 05-28-2017 Episodic Unclassified (2 sources) Preoperative cardiovascular examination ; Translations: [Encounter for preprocedural cardiovascular examination] Onset: 02-16-2011 Resolved: 06-01-2016 02-16-2011 Unclassified (10 sources) Lymphedema of Right Leg 04-21-2019 Unclassified (10 sources) Age more than 65 years; Translations: [Over 65 years old] 12-14-2021 Unclassified (1 source) Abrasion, left knee, initial encounter 07-07-2024 Results Test Name Value Interpretation Reference Range Facility Cardiology Visit Reporton Cardiology Visit Report [facility] [address] [place] [address] OFFICE VISIT Date of Service: 05/03/25 MR#: [id number] Acct: [id number] Name: ALBIN ISSA Rep #: [id number] : 1955 Provider: Dr. Delilah Villagomez MD Age/Sex: 70/M [place] [facility] [place] Signed HPI HPI History of Present Illness Details: This gentleman with history of coronary artery disease status post CABG, status post MC to the LAD, ischemic cardiomyopathy, status post ICD placement, hypertension, dyslipidemia and obesity is here for follow-up visit. Denies any chest pains or shortness of breath. No orthopnea or PND. Denies any palpitations. No lightheadedness or dizziness. No syncope or presyncope. Intake Vital Signs 11/18/24 07:27 05/03/25 11:28 Height 5 ft 7 in 5 ft 7 in Weight: 294 lb BMI 46.0 BP 101/57 L Blood Pressure Location Lt brachial Position Sitting Respiration 18 Pulse 57 L Pulse Source NIBP Intake Visit Reasons: 6 M FU Allergies No Known Allergies Allergy (Verified 11/18/24 07:23) Medications ???Medication ???Instructions ???Recorded ???Confirmed ???Type aspirin 81 mg chewable tablet 81 mg PO QHS Heart health 06/09/17 05/03/25 History Held on 11/18/24. Instructions: Resume on 12/02/24. gabapentin 300 mg capsule 300 mg PO QHS Rls 09/21/20 5 History temazepam 15 mg capsule 15 mg PO QHS PRN Sleep 09/21/20 History trazodone 50 mg tablet 50 mg PO QHS sleep 03/22/21 History escitalopram oxalate 20 mg tablet 20 mg PO DAILY 08/20/22 05/03/25 History multivitamin (Daily Multi-Vitamin 1 tab PO DAILY 05/27/24 05/03/25 History tablet) pantoprazole 40 mg tablet,delayed 40 mg PO DAILY gerd #90 tabs 09/0211/18/24 Rx release clopidogrel 75 mg tablet (Plavix) 75 mg PO DAILY blood clots #90 ta bs 10/12/24 05/03/25 Rx Held on 11/18/24. Instructions: Resume on 12/02/24. furosemide 40 mg tablet 40 mg PO BID #180 tabs 10/19/24 Rx acetaminophen 500 mg tablet 1,000 mg PO Q8 PRN fever or pain 1 12/21/23 05/03/25 History desloratadine 5 mg tablet 5 mg PO DAILY PRN allergy symptoms 10/21/24 05/03/25 History finasteride 5 mg tablet 5 mg PO DAILY 10/21/24 05/03/25 Hi story oxycodone-acetaminoph en 5 mg-325 1 tab PO Q6H PRN pain 3 days #12 1 12/21/23 11/05/24 Rx mg tablet (Percocet) tabs oxycodone 5 mg tablet 5 mg PO Q6H PRN pain 3 days #14 Rx tabs atorvastatin 80 mg tablet 80 mg PO QHS cholesterol #90 tabs 12/03/24 05/03/25 Rx dapagliflozin propanediol 10 mg 10 mg PO DAILY #90 tabs 12/10/24 0 05/03/25 Rx tablet (Farxiga) carvedilol 25 mg tablet 25 mg PO BID heart #180 tabs 12/2505/03/25 Rx isosorbide mononitrate 60 mg 60 mg PO BID blood pressure #180 0 12/25/24 05/03/25 Rx tablet,extended release 24 hr tabs potassium chloride 20 mEq 40 meq (2 x 20 mEq) PO QDAY Rx tablet,extended release supplement #180 tabs ramipril 10 mg capsule 10 mg PO DAILY #90 caps 04/15/25 Rx Ejection fraction %: 40 Have you fallen in the past year?: No [facility] Medical History Above knee amputation of right lower extremity Acute lymphangitis of right lower extremity Anemia Arthritis Atherosclerosis of coronary artery bypass graft without angina pectoris Atherosclerotic heart disease of alutiiq coronary artery without angina pectoris Automatic implantable cardioverter-defibril lator in situ Back pain CAD (coronary artery disease) Cancer Cardiology follow-up encounter Chest pain Chronic Systolic CHF - EF 45% Chronic systolic congestive heart failure Coronary atherosclerosis of bypass graft COVID-19 CPAP (continuous positive airway pressure) dependence Debility Depression Diabetes Difficulty swallowing Effects of radiation Esophageal foreign body Essential hypertension Fall Former smoker Fracture, humerus Gastroenteritis GERD (gastroesophageal reflux disease) GERD (gastroesophageal reflux disease) GERD (gastroesophageal reflux disease) History of echocardiogram History of edema History of 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 History of pain when walking History of stress test ICD (implantable cardioverter-defibril lator) in place ( 08/17/10) Injury of head and neck Ischemic cardiomyopathy ( 10/30/23) Lateral epicondylitis of left elbow Left elbow pain 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 Normal [facility] Pacemaker Checkon 01-25-2025 Pacemaker Check [facility] [address] [place], [place] [address] Pacemaker Check Date of Service: 01/25/251536 MR#: [id number] Acct: [id number] Name: ALBIN ISSA Rep #: [id number] : 1955 From: Bethany Deng Age/Sex: 69/M [place] [facility] [place]: Signed Billing Codes ICD Device Billin ICD Dev Prog Eval, Dual Assessment and Plan Assessment and Plan (1) ICD (implantable cardioverter-defibril lator) in place: Status: Chronic Comment: ICD Implant 2009 (2) Ischemic cardiomyopathy: Status: Chronic Comment: EF 45%. Stage I diastolic dysfunction 01/25/251537 Date Bethany Deng Sueignosman Signature: Date (if applicable) CC: Normal [facility] Comprehensive Metabolic Prof ilon 12-11-2024 Albumin [Mass/Vol] 3.6 g/dL Normal 3.2-5.0 [facility] Comment on above: Performed By: #### L 501.0900, L500.4100, L501.9985, L500.4050 ####[facility] [address] [place], [address] Albumin/Globulin [Mass ratio] 1.1 {ratio} Normal 0.9-2.4 [facility] Comment on above: Performed By: #### L 501.0900, L500.4100, L501.9985, L500.4050 ####[facility] [address] [place], [address] ALK P 148 U/L High 45-117 [facility] Comment on above: Performed By: #### L 501.0900, L500.4100, L501.9985, L500.4050 ####[facility] [address] [place], [address] ALT [Catalytic activity/Vol] 34 U/L Normal 16-61 [facility] Comment on above: Performed By: #### L 501.0900, L500.4100, L501.9985, L500.4050 ####[facility] [address] [place], [address] AST [Catalytic activity/Vol] 14 U/L Low 15-37 [facility] Comment on above: Performed By: #### L 501.0900, L500.4100, L501.9985, L500.4050 ####[facility] [address] [place], [address] Bilirubin [Mass/Vol] 0.40 mg/dL Normal 0.20-1.00 [facility] Comment on above: Result Comment: For patients on eltrombopag therapy, use of Dimension [place] TBIL is not recommended. Performed By: #### L 501.0900, L500.4100, L501.9985, L500.4050 ####[facility] [address] [place], [address] BUN/CRE 12.3 RATIO Normal 10-20 [facility] Comment on above: Performed By: #### L 501.0900, L500.4100, L501.9985, L500.4050 ####[facility] [address] [place], [address] CA,Total 9.9 mg/dL Normal 8.5-10.1 [facility] Comment on above: Performed By: #### L 501.0900, L500.4100, L501.9985, L500.4050 ####[facility] [address] [place], [address] Chloride [Moles/Vol] 108 mmol/L High 98-107 [facility] Comment on above: Performed By: #### L 501.0900, L500.4100, L501.9985, L500.4050 ####[facility] [address] [place], [address] CO2 [Moles/Vol] 28.0 mmol/L Normal 21.0-32.0 [facility] Comment on above: Performed By: #### L 501.0900, L500.4100, L501.9985, L500.4050 ####[facility] [address] [place], [address] Creatinine [Mass/Vol] 1.06 mg/dL Normal 0.70-1.30 [facility] Comment on above: Result Comment: The validity of the calculated GFR GFRAA in patients over 70 years has not been determined. Clinical correlation is essential. Performed By: #### L 501.0900, L500.4100, L501.9985, L500.4050 ####[facility] [address] [place], [address] EST GFR - AA 89 mL/min Normal >60 [facility] Comment on above: Result Comment: Afri can [place] GFR Calc Performed By: #### L 501.0900, L500.4100, L501.9985, L500.4050 ####[facility] [address] [place], [address] GAP 4 Low 5-15 [facility] Comment on above: Performed By: #### L 501.0900, L500.4100, L501.9985, L500.4050 ####[facility] [address] [place], [address] GFR/1.73 sq M.predicted among non-blacks MDRD (S/P/Bld) [Vol rate/Area] 74 mL/min/{1.73_m2} Normal >60 [facility] Comment on above: Result Comment: Non- GFR Calc Performed By: #### L 501.0900, L500.4100, L501.9985, L500.4050 ####[facility] [address] [place], [address] Globulin (S) [Mass/Vol] 3.4 g/dL Normal 2.2-4.2 [facility] Comment on above: Performed By: #### L 501.0900, L500.4100, L501.9985, L500.4050 ####[facility] [address] [place], [address] Glucose [Mass/Vol] 126 mg/dL High 74-106 [facility] Comment on above: Result Comment: Fast ing Glucose result greater than or equal to 126 mg/dL suggests DIABETES MELLITUS per A.D.A. criteria. Performed By: #### L 501.0900, L500.4100, L501.9985, L500.4050 ####[facility] [address] [place], [address] Potassium [Moles/Vol] 3.6 mmol/L Normal 3.5-5.1 [facility] Comment on above: Performed By: #### L 501.0900, L500.4100, L501.9985, L500.4050 ####[facility] [address] [place], [address] Sodium [Moles/Vol] 140 mmol/L Normal 136-145 [facility] Comment on above: Performed By: #### L 501.0900, L500.4100, L501.9985, L500.4050 ####[facility] [address] [place], [address] T PROT 7.0 g/dL Normal 6.4-8.2 [facility] Comment on above: Performed By: #### L 501.0900, L500.4100, L501.9985, L500.4050 ####[facility] [address] [place], [address] Urea nitrogen [Mass/Vol] 13 mg/dL Normal 7-18 [facility] Comment on above: Performed By: #### L 501.0900, L500.4100, L501.9985, L500.4050 ####[facility] [address] [place], [address] Hemoglobin A1con 12-11-2024 HbA1c (Bld) [Mass fraction] 6.0 % High 3.8-5.6 [facility] Comment on above: Result Comment: Norm al < 5.7 % Prediabetic 5.7 - 6.4 % Diabetic >or= 6.5 % Please note range changes. Performed By: #### L 501.0900, L500.4100, L501.9985, L500.4050 ####[facility] [address] [place], [address] Lipid Profileon 12-11-2024 Cholesterol [Mass/Vol] 113 mg/dL Normal 200 [facility] Comment on above: Result Comment: <200 mg/dL Desirable 200-240 mg/dL Borderline >240 mg/dL High Risk Performed By: #### L 501.0900, L500.4100, L501.9985, L500.4050 ####[facility] [address] [place], [address] Cholesterol in HDL [Mass/Vol] 50 mg/dL Normal [facility] Comment on above: Result Comment: The drugs N-Acetylcysteine and Metamizole may falsely depress this assay. Reference Range HDL <40 mg/dL Low HDL Cholesterol HDL >or= 60 mg/dL High HDL Cholesterol Performed By: #### L 501.0900, L500.4100, L501.9985, L500.4050 ####[facility] [address] [place], [address] Cholesterol in LDL [Mass/Vol] 39 mg/dL Normal 0-130 [facility] Comment on above: Performed By: #### L 501.0900, L500.4100, L501.9985, L500.4050 ####[facility] [address] [place], [address] Cholesterol in VLDL [Mass/Vol] 24 mg/dL Normal 5-40 [facility] Comment on above: Performed By: #### L 501.0900, L500.4100, L501.9985, L500.4050 ####[facility] [address] [place], [address] Triglyceride [Mass/Vol] 122 mg/dL Normal [facility] Comment on above: Result Comment: The drugs N-Acetylcysteine and Metamizole may falsely depress this assay. Serum Triglycerides Reference Interval Normal <150 mg/dL Borderline high 150 - 199 mg/dL High 200 - 499 mg/dL Very High > or = 500 mg/dL Performed By: #### L 501.0900, L500.4100, L501.9985, L500.4050 ####[facility] [address] [place], [address] Protein+Creatinine Ratio,Uri neon 12-11-2024 PROT:CRE RATIO Normal 0-200 [facility] Comment on above: Result Comment: UTO Performed By: #### L 501.0900, L500.4100, L501.9985, L500.4050 ####[facility] [address] [place], [address] PROTEIN,UR.RAN. Normal <11.9 [facility] Comment on above: Result Comment: UTO Performed By: #### L 501.0900, L500.4100, L501.9985, L500.4050 ####[facility] [address] [place], [address] UR CREAT Normal NO RANGE EST. [facility] Comment on above: Result Comment: UTO Performed By: #### L 501.0900, L500.4100, L501.9985, L500.4050 ####[facility] [address] [place], [address] Bedside Glucoseon 11-18-2024 FINGERSTICK GLU 109 mg/dL High 74-106 [facility] Comment on above: Result Comment: EVAN MELISSA OF PATIENT CARE PER NURSING PROTOCOL Performed By: #### L 501.080 #### [facility] Laboratory [address] [place], [place], [address] Discharge Instructionon 11-01 Discharge Instruction [facility] Medical Records Department [address] [place] [address] Instructions for Home/Discharge Instructions 11/18/24 0733 MR#: [id number] Acct: [id number] Name: ALBIN ISSA Rep #: [id number] : 1955 69 From: Ravi Holder MD PCP: Dr. Speedy Boswell MD Status:DEP [facility] Discharge Instructions DC O2, CPAP, BIPAP needs Additional Home O2 Discharge instructions: No Follow Up Care Test Results: Test results from this visit will be discussed in further detail at your follow-up appointment, if applicable. Discharge Plan Admission Primary Reason for Your Visit: left laser stone Attending Provider: Ravi Holder Primary Care Provider: Speedy Boswell Instructions Print Language: Citizen Of [place] Discharge Orders/Prescriptions Prescriptions: New ciprofloxacin HCl [Cipro] 500 mg tablet 500 mg PO BID Qty: 10 0RF oxycodone 5 mg tablet 5 mg PO Q6H PRN (Reason: pain) 3 Days Qty: 14 0RF Continued gabapentin 300 mg capsule 300 mg PO QHS temazepam 15 mg capsule 15 mg PO QHS PRN (Reason: Sleep) trazodone 50 mg tablet 50 mg PO QHS escitalopram oxalate 20 mg tablet 20 mg PO DAILY desloratadine 5 mg tablet 5 mg PO DAILY PRN (Reason: allergy symptoms) finasteride 5 mg tablet 5 mg PO DAILY acetaminophen 500 mg Tablet 1,000 mg PO Q8 PRN (Reason: fever or pain) oxycodone-acetaminoph en [Percocet] 5-325 mg tablet 1 tab PO Q6H PRN (Reason: pain) 3 Days Qty: 12 0RF multivitamin [Daily Multi-Vitamin] Tablet 1 tab PO DAILY potassium chloride 20 mEq tablet extended release 40 meq PO QDAY Qty: 180 3RF atorvastatin 80 mg tablet 80 mg PO QHS Qty: 90 3RF carvedilol 25 mg tablet 25 mg PO BID Qty: 180 3RF isosorbide mononitrate 60 mg tablet extended release 24 hr 60 mg PO BID Qty: 180 3RF ramipril 10 mg capsule 10 mg PO DAILY Qty: 90 4RF pantoprazole 40 mg tablet,delayed release (DR/EC) 40 mg PO DAILY Qty: 90 3RF dapagliflozin propanediol [Farxiga] 10 mg tablet 10 mg PO DAILY Qty: 30 11RF furosemide 40 mg tablet 40 mg PO BID Qty: 180 3RF Rx Instructions: water retention Held aspirin 81 MG tablet,chewable 81 mg PO QHS Hold Instructions: Resume on 12/02/24. Patient Comments: TAKES WITH NIASPAN TO PREVENT HOT FLASHES Rx Instructions: will stop 5 day prior clopidogrel [Plavix] 75 mg tablet 75 mg PO DAILY Qty: 90 3RF Hold Instructions: Resume on 12/02/24. Referrals / Follow Up: Ravi Holder MD [Med Staff - Active Staff] - Speedy Boswell MD [Primary Care Provider] - Disposition Disposition (needs filled in before D/C Order can be placed): Home, Self Care 11/18/24 8174 Ravi Holder MD CC: Dr. Speedy Boswell MD Signed [facility] MR/POSTOP.[facility] 11-18-2024 MR/POSTOP.[facility] Medical Records Department [address] [place] [address] Anesthesia Postop Eval I 11/18/24 1008 MR#: [id number] Acct: [id number] Name: ALBIN ISSA Rep #: [id number] : 1955 69 From: Milka Gillis PCP: Dr. Speedy Boswell MD Status:REG SDC Y Race: C Location: [place] [address] Anesthesia: Postop Eval I Current Vital Signs Temperature: 97.5 F Pulse Rate: 65 Blood Pressure: 117/61 Respiratory Rate: 18 Pulse Ox: 94 Assessment Airway patent: Yes Spontaneous unlabored respirations: Yes nausea: No Vomiting: No Anesthesia Complication: No Fluid Hydration Crystalloid volume administer (ml): 800 Total IV fluid infused: 800 Progress Note Anesthesia document: Postop Eval 1 completed: Yes 11/18/24 1009 Date Milka Perera Signature: Date CC: Signed Normal [facility] MR/[id number] 11-18-2024 [facility] Medical Records Department [address] [place] [address] Anesthesia Postop Eval II 11/18/24 1102 MR#: [id number] Acct: [id number] Name: ALBIN ISSA Rep #: [id number] : 1955 69 From: Niall Mayes MD PCP: Dr. Speedy Boswell MD Status:REG [facility] Y Race: C Location: [place] [address] Anesthesia Postop Eval I Sum Postop Eval Completion status Anesthesia document: Postop Eval 1 completed: Yes Anesthesia Postop Eval I Summary Anesthesia Postop Eval I Summary: Anesthesia Postop Eval I: Assessment Summary Airway patent Yes 11/18/24 10:08 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CS[employer] Spontaneous unlabored Yes 11/18/24 10:08 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CS[employer] respirations Mental status nausea No 11/18/24 10:08 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CS[employer] Vomiting No 11/18/24 10:08 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CSIR Anesthesia Postop Eval I: Fluid Summary Crystalloid volume administer 800 11/18/24 10:08 [employer]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.CSIR (ml) Colloids volume administered ( ml) Blood Product volume administered (ml) Total IV fluid infused 800 11/18/24 10:08 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 ENGINE[employer].CSIR Anesthesia Postop Eval I: Summary Notes Anesthesia Complication No 11/18/24 10:08 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.CSIR Anesthesia Complication Comment: Post-operative progress note Anesthesia: Postop Eval II Evaluation Mental status: Awake Pain Level: 0 nausea: No Vomiting: No 11/18/24 1102 Date Niall Perera Signature: Date CC: Signed Normal [facility] Operative Reporton 4 Operative Report [facility] Medical Records Department [address] [place] [address] Operative Report 11/18/24 0958 MR#: [id number] Acct: [id number] Name: ALBIN ISSA Rep #: [id number] : 1955 69 From: Ravi Holder MD PCP: Dr. Speedy Boswell MD Status:[facility] Location: [place] [address] Operative Report (Standard) Operative Information Date of Procedure: 11/18/24 Pre-Operative Diagnosis: Left kidney stone Post-Operative Diagnosis: The same Surgery/Procedure Performed: Cystoscopy left ureteroscopy laser lithotripsy of stone, no stent limb driver: No Type of Anesthesia: General RN Documented Start/Stop Times: Operation Date: 11/18/24 08:45 Case Time Into Pre-Op 11/18/24 06:55 Out of Pre-Op 11/18/24 09:07 Anesthesia Start 11/18/24 09:10 Into Room 11/18/24 09:10 Procedure Start 11/18/24 09:32 Procedure End 11/18/24 09:56 Procedure Start Time: 09:32 Procedure Stop Time: 09:59 Select all DRAINS/GRAFTS/IMPLANT S that apply: None Estimated Blood Loss: 0 Specimen collected: No Description of surgery: This is a patient who presents to the hospital for treatment for an obstructing ureter calculi. I discussed with the patient how the surgery would be performed and we reviewed the risks and benefits of the surgery. The risk and benefits include the risk of failure to remove the stone completely and that the patient may need multiple procedures. We discussed the risk of an infection, the risk of bleeding. We discussed the very rare risk of serious complicated injury to the ureter. The patient understands that if the stone is not able to be removed safely that we may abort the procedure and place a stent. After full discussion and all questions address with the patient the consent form was signed the side was marked appropriately and the patient was taken back to the operating room for the procedure. The patient was taken back to the operating room. After induction of anesthesia by the anesthesiology team the patient was placed in dorsolithotomy position. The genitals were prepped and draped in usual sterile fashion. I went into the bladder with a 21 [place] rigid cystourethroscope through the urethra. Upon entering the bladder I inspected the trigone the left and right ureteral orifice and the bladder itself. I then cannulated the ureteral orifice and advanced a 0.038 Glidewire up into the kidney. I was able to go inside with the 7.5Fr utereroscope and I pulled out the guidewire and then through the ureteroscope I engage the stone in the kidney with laser lithotripsy using a 270miron laser fiber until the stone was lasered into tiny little pieces that should pass on their own. I then backed out of the ureter. I pulled the wire and removed. I then drained the patient's bladder and the cystoscope was removed and the patient was taken back to the recovery room in good position. The patient was given discharge instructions to call the office for instructions on when to come to the office for a post op check.. Surgical Findings: Stone in the left kidney lasered completely, no stent Complications Complications: No 11/18/24 1001 Cosigner Signature (if applicable): CC: Dr. Ravi Holder MD; Dr. Speedy Boswell MD Signed Normal [facility] Cardiology Visit Reporton Cardiology Visit Report [facility] Heart [address] [place] [address] OFFICE VISIT Date of Service: 11/04/24 MR#: [id number] Acct: [id number] Name: ALBIN ISSA Rep #: [id number] : 1955 Provider: Dr. Delilah Villagomez MD Age/Sex: 69/M Location: [facility] Status: Signed HPI HPI History of Present Illness Details: This gentleman with history of CAD status post CABG, status post drug-eluting stent to the proximal LAD is here for follow-up visit. Overall from a cardiac standpoint, he is remaining in good health without any complaints. No chest pains. No shortness of breath. No orthopnea. No PND. Intake Vital Signs 06/29/24 20:00 10/26/24 00:57 11/04/24 13:10 Height 5 ft 7.5 in 5 ft 7 in 5 ft 7 in Weight: 294 lb BMI 46.0 BP 126/77 H Blood Pressure Location Rt brachial Position Sitting Respiration 18 Pulse 80 Pulse Source NIBP Intake Visit Reasons: 6 M FU Network Desktop Support Specialist Required: No Accompanied by: Self Is patient in pain?: No Allergies No Known Allergies Allergy (Verified 11/04/24 14:36) Medications ???Medication ???Instructions ???Recorded ???Confirmed ???Type aspirin 81 mg chewable tablet 81 mg PO QHS Heart health 06/09/17 11/04/24 History gabapentin 300 mg capsule 300 mg PO QHS Rls 09/21/20 11/04/24 History temazepam 15 mg capsule 15 mg PO QHS PRN Sleep 09/21/20 11/04/24 History trazodone 50 mg tablet 50 mg PO QHS sleep 03/22/21 11/04/24 History escitalopram oxalate 20 mg tablet 20 mg PO DAILY 08/20/22 11/04/24 History potassium chloride 20 mEq 40 meq (2 x 20 mEq) PO QDAY 08/09/23 11/04/24 Rx tablet,extended release supplement #180 tabs atorvastatin 80 mg tablet 80 mg PO QHS cholesterol #90 tabs 11/26/23 11/04/24 Rx carvedilol 25 mg tablet 25 mg PO BID heart #180 tabs 11/26/23 11/04/24 Rx isosorbide mononitrate 60 mg 60 mg PO BID blood pressure #180 11/26/23 11/04/24 Rx tablet,extended release 24 hr tabs ramipril 10 mg capsule 10 mg PO DAILY #90 caps 04/06/24 11/04/24 Rx multivitamin (Daily Multi-Vitamin 1 tab PO DAILY 05/27/24 11/04/24 History tablet) dapagliflozin propanediol 10 mg 10 mg PO DAILY #30 tabs 09/21/24 11/04/24 Rx tablet (Farxiga) pantoprazole 40 mg tablet,delayed 40 mg PO DAILY gerd #90 tabs 09/21/24 11/04/24 Rx release clopidogrel 75 mg tablet (Plavix) 75 mg PO DAILY blood clots #90 tabs 10/12/24 11/04/24 Rx furosemide 40 mg tablet 40 mg PO BID #180 tabs 10/19/24 11/04/24 Rx acetaminophen 500 mg tablet 1,000 mg PO Q8 PRN fever or pain 10/21/24 11/04/24 History desloratadine 5 mg tablet 5 mg PO DAILY PRN allergy symptoms 10/21/24 11/04/24 History finasteride 5 mg tablet 5 mg PO DAILY 10/21/24 11/04/24 History oxycodone-acetaminoph en 5 mg-325 1 tab PO Q6H PRN pain 3 days #12 10/21/24 11/04/24 Rx mg tablet (Percocet) tabs Ejection fraction %: 40 Have you fallen in the past year?: No PFSH Medical History Above knee amputation of right lower extremity Acute lymphangitis of right lower extremity Alcohol abuse Anemia Arthritis Atherosclerosis of coronary artery bypass graft without angina pectoris Atherosclerotic heart disease of alutiiq coronary artery without angina pectoris Automatic implantable cardioverter-defibril lator in situ Back pain CAD (coronary artery disease) Cancer Cardiology follow-up encounter Chest pain Chronic Systolic CHF - EF 45% Chronic systolic congestive heart failure Coronary atherosclerosis of bypass graft COVID-19 CPAP (continuous positive airway pressure) dependence Debility Depression Diabetes Difficulty swallowing Effects of radiation Esophageal foreign body Essential hypertension Fall Former smoker Fracture, humerus Gastroenteritis GERD (gastroesophageal reflux disease) GERD (gastroesophageal reflux disease) GERD (gastroesophageal reflux disease) History of echocardiogram History of edema History of 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 History of pain when walking History of stress test ICD (implantable cardioverter-defibril lator) in place ( 08/17/10) Injury of head and neck Ischemic cardiomyopathy ( 10/30/23) Lateral epicondylitis of left elbow Left elbow pain detention use of drug Lymphedema of Right Leg Lymphedema of right lower extremity Mixed hyperlipidemia Morbid obesity with BMI of 40.0-44.9, adult Obesity (BMI 30-39.9) Over 65 years old Pacemaker Paresthesia of left upper extremity Phantom pain after amputation of lower extremity Renal calculi Shortness of breath SIRS (systemic inflammatory response syndrome) Stroke-like symptoms Stuttering Surgical wound dehiscence TIA (transient ischemic attack) Wears contact lenses Wears glasses Wears hearing aid Wears partial dentures Surgical Histo (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 Normal [facility] Emergency Department Summary on 10-26-2024 Emergency Department Summary [facility] Medical Records Department [address] [place] [address] Emergency Department Summary 10/26/24 MR#: [id number] Acct: [id number] Name: ALBIN ISSA Rep #: [id number] : 1955 69 From: Joce Serrano MD PCP: Dr. Speedy Boswell MD Status:REG ER Location: ED HPI History of Present Illness Chief Complaint: Flank Pain Detail of Chief Complaint: Patient reports bilateral flank pain. He points to right and left paralumb Informant: patient Onset/Context/Timing Onset: Days Context: Sudden Onset Timing: Continuous Quality: Pain Location: Right and left paralumbar region Current Severity: Mild Maximum Severity: Moderate Worsened by: Movement Relieved by: Nothing Associated Symptoms Associated Symptoms: No GI or symptoms Narrative Narrative: Patient is a 69-year-old male. He was seen on October 21. He was diagnosed with bilateral renal calculi. His UA was unremarkable. His renal function was normal. Patient was discharged prescription for oxycodone. He states that did not help. Patient has history of coronary artery disease, ischemic cardiomyopathy, essential hypertension, mixed hyperlipidemia with chronic systolic congestive heart failure. BMI is 48.8. Patient does have a AICD that was placed August 2010. Patient presents because nothing is helping his pain. He states he wants admitted to determine what the cause of his pain. 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 This was diagnosed many years ago. He denies fever, chills night sweats. He denies abdominal pain, nausea, vomiting or diarrhea. He denies radicular pain. He denies bowel or bladder dysfunction. He denies dysuria, frequency, urgency or hematuria. Patient states he was prescribed Oxy codon. This has not helped his pain. Prior similar symptoms: Yes Recent Illness/Hospitalizati on: Yes PFSH PFSH Medical History Coronary atherosclerosis of bypass graft Wears hearing aid Wears glasses Wears contact lenses Wears partial dentures Diabetes Arthritis Anemia Back pain Injury of head and neck Difficulty swallowing Phantom pain after amputation of lower extremity Stuttering History of pain when walking History of edema History of echocardiogram History of stress test Cardiology follow-up encounter Lateral epicondylitis of left elbow Left elbow pain Over 65 years old COVID-19 Fracture, humerus Fall Cancer Alcohol abuse Depression Former smoker CPAP (continuous positive airway pressure) dependence Pacemaker TIA (transient ischemic attack) Esophageal foreign body Stroke-like symptoms Paresthesia of left upper extremity Renal calculi GERD (gastroesophageal reflux disease) Chest pain Mixed hyperlipidemia Essential hypertension Obesity (BMI 30-39.9) Surgical wound dehiscence Above knee amputation of right lower extremity Debility Lymphedema of right lower extremity Automatic implantable cardioverter-defibril lator in situ Chronic systolic congestive heart failure GERD (gastroesophageal reflux disease) Atherosclerotic heart disease of alutiiq coronary artery without angina pectoris Shortness of breath History of 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 Ischemic cardiomyopathy ( 10/30/23) Atherosclerosis of coronary artery bypass graft without angina pectoris Gastroenteritis SIRS (systemic inflammatory response syndrome) Morbid obesity with BMI of 40.0-44.9, adult Effects of radiation Acute lymphangitis of right lower extremity ICD (implantable cardioverter-defibril lator) in place ( 08/17/10) Lymphedema of Right Leg CAD (coronary artery disease) Chronic Systolic CHF - EF 45% GERD (gastroesophageal reflux disease) Home Medications ???Medication ???Instructions ???Recorded ???Last Taken ???Type aspirin 81 mg chewable tablet 81 mg PO QHS Heart health 06/09/17 06/10/24 History gabapentin 300 mg capsule 300 mg PO QHS Rls 09/21/20 06/10/24 History temazepam 15 mg capsule 15 mg PO QHS PRN Sleep 09/21/20 06/10/24 History trazodone 50 mg tablet 50 mg PO QHS sleep 03/22/21 06/10/24 History escitalopram oxalate 20 mg tablet 20 mg PO DAILY 08/20/22 06/11/24 History potassium chloride 20 mEq 40 meq (2 x 20 mEq) PO QDAY 08/09/23 06/10/24 Rx tablet,extended release supplement #180 tabs atorvastatin 80 mg tablet 80 mg PO QHS cholesterol #90 tabs 11/26/23 06/10/24 Rx carvedilol 25 mg tablet 25 mg PO BID heart #180 tabs 11/26/23 06/11/24 Rx isosorbide mononitrate 60 mg 60 mg PO BID blood pressure #180 11/26/23 06/11/24 Rx tablet,extended release 24 hr tabs ramipril 10 mg capsule 10 mg PO DAILY #90 caps 04/06/24 06/11/24 Rx multivitamin (Daily Multi-Vitamin 1 tab PO DAILY 05/27/24 06/06/24 History tablet) prednisone 20 mg tablet 40 mg (2 x 20 mg) PO DAILY #8 07 (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 Normal [facility] Abdomen/Pelvis without Conto n 10-21-2024 Abdomen/Pelvis without Cont [facility] Imaging Services [address] [place], [place] [address] Abdomen/Pelvis without Cont MR#: [id number] Acct: [id number] Name: ALBIN ISSA Rep #: [id number] : 1955 M 69 From: Louis Steiner PCP: Dr. Speedy Boswell MD Status: DEP ER Study: Abdomen/Pelvis without Cont Date of Exam: 10/03 Exam# [id number] Ordering Dr: Manuel Hart DO [id number] EXAM: CT ABDOMEN AND PELVIS WITHOUT INTRAVENOUS CONTRAST CLINICAL INDICATION: left flank pain TECHNIQUE: Helically acquired images were obtained of the abdomen and pelvis without intravenous contrast. This CT exam was performed using one or more of the following dose reduction techniques: automated exposure control, adjustment of the mA and/or kV according to patient size, and/or use of iterative reconstruction technique. RADIATION DOSE: CTDIvol = 22.88 mGy, DLP = 1172.05 mGy-cm COMPARISON: 01/15/2022. FINDINGS: LOWER THORAX: Coronary artery calcifications. Lung bases are clear. No cardiomegaly. No significant pericardial effusion. ABDOMEN: LIVER: Unremarkable. Homogeneous. GALLBLADDER AND BILE DUCTS: Unremarkable. No calcified gallstones. No gallbladder distention or wall edema. No intra- or extrahepatic biliary ductal dilation. PANCREAS: Unremarkable. No focal cystic mass. SPLEEN: Unremarkable. Normal size without focal cystic or solid mass. ADRENALS: Unremarkable. No nodules. KIDNEYS AND URETERS: Two nonobstructing calculi left kidney the largest measuring 5 mm. Single nonobstructing calculus measuring up to 9 mm lower pole of right kidney. Areas of cortical scarring left kidney. Simple left renal cyst. No follow-up of this simple cyst is necessary. STOMACH AND BOWEL: Unremarkable. No stomach or bowel distention. No focal inflammatory change. PELVIS: APPENDIX: Normal appendix. BLADDER: Unremarkable. REPRODUCTIVE: Unremarkable as visualized. No mass. ABDOMEN and PELVIS: INTRAPERITONEAL SPACE: Unremarkable. No ascites or other fluid collection. No free air. BONES/JOINTS: Left total hip arthroplasty. Components appear well seated. No suspicious lytic or blastic abnormality. SOFT TISSUES: Atrophic right psoas and iliacus muscles. No discrete abdominal or pelvic wall hernia. VASCULATURE: See above. LYMPH NODES: Unremarkable. No enlarged lymph nodes. CT/Abdomen/Pelvis without Cont IMPRESSION: 1. No acute abdominal pelvic abnormality. 2. Coronary artery disease. 3. Two nonobstructing calculi left kidney the largest measuring 5 mm. Single nonobstructing calculus measuring up to 9 mm lower pole of right kidney. 4. Areas of cortical scarring left kidney. 5. Left total hip arthroplasty. Components appear well seated. Electronically Signed: Louis Garrison MD at 2:33 EST , CC: Dr. Speedy Boswell MD; Manuel Hart DO Salvage Engineer: Signed Normal [facility] Basic Metabolic Profile (BMP )on 10-21-2024 BUN/CRE 11.9 RATIO Normal 09-20 [facility] Comment on above: Performed By: #### L 500.2500, L100.0100 #### [facility] Laboratory [address] [place], [address] CA,Total 9.6 mg/dL Normal 8.5-10.1 [facility] Comment on above: Performed By: #### L 500.2500, L100.0100 #### [facility] Laboratory [address] [place], [address] Chloride [Moles/Vol] 107 mmol/L Normal 98-107 [facility] Comment on above: Performed By: #### L 500.2500, L100.0100 #### [facility] Laboratory [address] [place], [address] CO2 [Moles/Vol] 26.0 mmol/L Normal 21.0-32.0 [facility] Comment on above: Performed By: #### L 500.2500, L100.0100 #### [facility] Laboratory [address] [place], [address] Creatinine [Mass/Vol] 1.26 mg/dL Normal 0.70-1.30 [facility] Comment on above: Result Comment: The validity of the calculated GFR GFRAA in patients over 70 years has not been determined. Clinical correlation is essential. Performed By: #### L 500.2500, L100.0100 #### [facility] [address] [place], [address] ECRCL 73.08 ml/min Normal [facility] Comment on above: Performed By: #### L 500.2500, L100.0100 #### [facility] [address] [place], [address] EST GFR - AA 73 mL/min Normal >60 [facility] Comment on above: Result Comment: Afri can [place] GFR Calc Performed By: #### L 500.2500, L100.0100 #### [facility] Laboratory [address] [place], [address] GAP 5 Normal 5-15 [facility] Comment on above: Performed By: #### L 500.2500, L100.0100 #### [facility] Laboratory [address] [place], [address] GFR/1.73 sq M.predicted among non-blacks MDRD (S/P/Bld) [Vol rate/Area] 60 mL/min/{1.73_m2} Normal >60 [facility] Comment on above: Result Comment: Non- GFR Calc Performed By: #### L 500.2500, L100.0100 #### [facility] Laboratory [address] [place], [address] Glucose [Mass/Vol] 141 mg/dL High 74-106 [facility] Comment on above: Result Comment: Fast ing Glucose result greater than or equal to 126 mg/dL suggests DIABETES MELLITUS per A.D.A. criteria. Performed By: #### L 500.2500, L100.0100 #### [facility] [address] [place], [address] Potassium [Moles/Vol] 3.5 mmol/L Normal 3.5-5.1 [facility] Comment on above: Performed By: #### L 500.2500, L100.0100 #### [facility] Laboratory [address] [place], [address] Sodium [Moles/Vol] 138 mmol/L Normal 136-145 [facility] Comment on above: Performed By: #### L 500.2500, L100.0100 #### [facility] [address] [place], [address] Urea nitrogen [Mass/Vol] 15 mg/dL Normal 7-18 [facility] Comment on above: Performed By: #### L 500.2500, L100.0100 #### [facility] Laboratory [address] [place], [address] CBC W/Diff, Automatedon 11-2 0-2023 Absolute Lymph 1.63 X10 3/uL Normal 0.83-4.51 [facility] Comment on above: Performed By: #### L 500.2500, L100.0100 #### [facility] Laboratory [address] [place], [address] Absolute Neut 4.7 X10 3/uL Normal 2.0-7.7 [facility] Comment on above: Performed By: #### L 500.2500, L100.0100 #### [facility] [address] [place], [address] Basophils/100 WBC (Bld) 0.7 % Normal 0-1 [facility] Comment on above: Performed By: #### L 500.2500, L100.0100 #### [facility] Laboratory [address] [place], [address] Eosinophils/100 WBC (Bld) 2.2 % Normal 0-5 [facility] Comment on above: Performed By: #### L 500.2500, L100.0100 #### [facility] [address] [place], [address] Erythrocyte distribution width (RBC) [Ratio] 13.0 % Normal 11.6-14.6 [facility] Comment on above: Performed By: #### L 500.2500, L100.0100 #### [facility] Laboratory [address] [place], [address] Hematocrit (Bld) [Volume fraction] 41.9 % Normal 40-54 [facility] Comment on above: Performed By: #### L 500.2500, L100.0100 #### [facility] [address] [place], [address] Hemoglobin (Bld) [Mass/Vol] 14.1 g/dL Normal 13.0-16.5 [facility] Comment on above: Performed By: #### L 500.2500, L100.0100 #### [facility] [address] [place], [address] IG% 0.400 Normal 0.0-0.9 [facility] Comment on above: Result Comment: IG% - Immature Granulocytes (promyelocytes, myelocytes and metamyelocytes) > 1% indicates that a LEFT SHIFT is Present. Performed By: #### L 500.2500, L100.0100 #### [facility] Laboratory [address] [place], [address] Lymphocytes/100 WBC (Bld) 22.6 % Normal 19-41 [facility] Comment on above: Performed By: #### L 500.2500, L100.0100 #### [facility] Laboratory [address] [place], [address] MCH (RBC) [Entitic mass] 30.1 pg Normal 27.0-32.0 [facility] Comment on above: Performed By: #### L 500.2500, L100.0100 #### [facility] Laboratory [address] [place], [address] MCHC (RBC) [Mass/Vol] 33.7 g/dL Normal 32-36 [facility] Comment on above: Performed By: #### L 500.2500, L100.0100 #### [facility] Laboratory [address] [place], [address] MCV (RBC) [Entitic vol] 89.3 fL Normal 80-94 [facility] Comment on above: Performed By: #### L 500.2500, L100.0100 #### [facility] Laboratory [address] [place], [address] Monocytes/100 WBC (Bld) 8.3 % Normal 0-10 [facility] Comment on above: Performed By: #### L 500.2500, L100.0100 #### [facility] Laboratory [address] [place], [address] Neutrophils/100 WBC (Bld) 65.8 % Normal 47-70 [facility] Comment on above: Performed By: #### L 500.2500, L100.0100 #### [facility] Laboratory [address] [place], [address] Nucleated RBC (Bld) [#/Vol] 0 10*3/uL Normal 0-5 [facility] Comment on above: Performed By: #### L 500.2500, L100.0100 #### [facility] Laboratory [address] [place], [address] Platelet mean volume (Bld) [Entitic vol] 9.6 fL Normal 6.2-12.0 [facility] Comment on above: Performed By: #### L 500.2500, L100.0100 #### [facility] Laboratory [address] [place], [address] Platelets (Bld) [#/Vol] 202 10*3/uL Normal 150-450 [facility] Comment on above: Performed By: #### L 500.2500, L100.0100 #### [facility] Laboratory [address] [place], [address] RBC (Bld) [#/Vol] 4.69 10*6/uL Normal 4.6-6.2 [facility] Comment on above: Performed By: #### L 500.2500, L100.0100 #### [facility] Laboratory [address] [place], [address] RDW SD 42.3 fl Normal 35.1-43.9 [facility] Comment on above: Performed By: #### L 500.2500, L100.0100 #### [facility] Laboratory [address] [place], [address] WBC (Bld) [#/Vol] 7.2 10*3/uL Normal 4.4-11.0 [facility] Comment on above: Performed By: #### L 500.2500, L100.0100 #### [facility] Laboratory [address] [place], [address] Emergency Department Summary on 10-21-2024 Emergency Department Summary [facility] Medical Records Department [address] [place] [address] Emergency Department Summary 10/21/24 MR#: [id number] Acct: [id number] Name: ALBIN ISSA Rep #: [id number] : 1955 69 From: Manuel Hart DO PCP: Dr. Speedy Boswell MD Status:DEP ER Location: ED HPI History of Present Illness Chief Complaint: Flank Pain Informant: patient Narrative Narrative: Patient is a 69-year-old male with past medical history of hypertension hyperlipidemia coronary artery disease as well as previous ryqvy-nlo-fibq amputation on right. He states he is also had history of kidney stones. He reports that over the past week he has been having intermittent left- sided flank/back pain that radiates towards the abdomen. He states will wax and wane in severity. He denies any trauma fevers chills dysuria or hematuria. However he does state that it feels similar nature to his previous kidney stones and with concern for this he presents for evaluation [facility] Medical History Coronary atherosclerosis of bypass graft Wears hearing aid Wears glasses Wears contact lenses Wears partial dentures Diabetes Arthritis Anemia Back pain Injury of head and neck Difficulty swallowing Phantom pain after amputation of lower extremity Stuttering History of pain when walking History of edema History of echocardiogram History of stress test Cardiology follow-up encounter Lateral epicondylitis of left elbow Left elbow pain Over 65 years old COVID-19 Fracture, humerus Fall Cancer Alcohol abuse Depression Former smoker CPAP (continuous positive airway pressure) dependence Pacemaker TIA (transient ischemic attack) Esophageal foreign body Stroke-like symptoms Paresthesia of left upper extremity Renal calculi GERD (gastroesophageal reflux disease) Chest pain Mixed hyperlipidemia Essential hypertension Obesity (BMI 30-39.9) Surgical wound dehiscence Above knee amputation of right lower extremity Debility Lymphedema of right lower extremity Automatic implantable cardioverter-defibril lator in situ Chronic systolic congestive heart failure GERD (gastroesophageal reflux disease) Atherosclerotic heart disease of alutiiq coronary artery without angina pectoris Shortness of breath History of 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 Ischemic cardiomyopathy ( 10/30/23) Atherosclerosis of coronary artery bypass graft without angina pectoris Gastroenteritis SIRS (systemic inflammatory response syndrome) Morbid obesity with BMI of 40.0-44.9, adult Effects of radiation Acute lymphangitis of right lower extremity ICD (implantable cardioverter-defibril lator) in place ( 08/17/10) Lymphedema of Right Leg CAD (coronary artery disease) Chronic Systolic CHF - EF 45% GERD (gastroesophageal reflux disease) Home Medications ???Medication ???Instructions ???Recorded ???Last Taken ???Type aspirin 81 mg chewable tablet 81 mg PO QHS Heart health 06/09/17 06/10/24 History gabapentin 300 mg capsule 300 mg PO QHS Rls 09/21/20 06/10/24 History temazepam 15 mg capsule 15 mg PO QHS PRN Sleep 09/21/20 06/10/24 History trazodone 50 mg tablet 50 mg PO QHS sleep 03/22/21 06/10/24 History escitalopram oxalate 20 mg tablet 20 mg PO DAILY 08/20/22 06/11/24 History potassium chloride 20 mEq 40 meq (2 x 20 mEq) PO QDAY 08/09/23 06/10/24 Rx tablet,extended release supplement #180 tabs atorvastatin 80 mg tablet 80 mg PO QHS cholesterol #90 tabs 11/26/23 06/10/24 Rx carvedilol 25 mg tablet 25 mg PO BID heart #180 tabs 11/26/23 06/11/24 Rx isosorbide mononitrate 60 mg 60 mg PO BID blood pressure #180 11/26/23 06/11/24 Rx tablet,extended release 24 hr tabs ramipril 10 mg capsule 10 mg PO DAILY #90 caps 04/06/24 06/11/24 Rx multivitamin (Daily Multi-Vitamin 1 tab PO DAILY 05/27/24 06/06/24 History tablet) prednisone 20 mg tablet 40 mg (2 x 20 mg) PO DAILY #8 06/29/24 Unknown Rx TABLETS dapagliflozin propanediol 10 mg 10 mg PO DAILY #30 tabs 09/21/24 Unknown Rx tablet (Farxiga) pantoprazole 40 mg tablet,delayed 40 mg PO DAILY gerd #90 tabs 09/21/24 Unknown Rx release clopidogrel 75 mg tablet (Plavix) 75 mg PO DAILY blood clots #90 tabs 10/12/24 Unknown Rx furosemide 40 mg tablet 40 mg PO BID #180 tabs 10/19/24 Unknown Rx acetaminophen 500 mg tablet 1,000 mg PO Q8 PRN fever or pain 10/21/24 Unknown History desloratadine 5 mg tablet 5 mg PO DAILY PRN allergy symptoms 10/21/24 Unknown History finasteride 5 mg tablet 5 mg PO DAILY 10/21/24 Unknown History oxycodone-acetaminoph en 5 mg-325 1 tab PO Q6H PRN pain 3 days #12 10/21/24 Unknown Rx mg tablet (Percocet) tabs Allergy/AdvReac Type Severity Reaction Status Date / Time No Known Allergies Allergy Verified 10/20/24 23:39 (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 Normal [facility] Urinalysis, Completeon 10-21 WBC 0-5 SEEN Normal 0-5 [facility] Comment on above: Order Comment: TASHI CTOR TO SPECIFY Performed By: #### L 400.0001 #### [facility] Laboratory [address] [place], [address] BACTERIA 0 SEEN Normal None Seen [facility] Comment on above: Order Comment: TASHI CTOR TO SPECIFY Performed By: #### L 400.0001 #### [facility] Laboratory [address] [place], [address] EPI,SQUAMOUS 0 SEEN Normal 0-5 [facility] Comment on above: Order Comment: TASHI CTOR TO SPECIFY Performed By: #### L 400.0001 #### [facility] Laboratory [address] [place], [address] Mucus Ql (Urine sed) 0 SEEN Normal [facility] Comment on above: Order Comment: TASHI CTOR TO SPECIFY Performed By: #### L 400.0001 #### [facility] Laboratory [address] [place], [address] RBC 0 SEEN Normal 0-5 [facility] Comment on above: Order Comment: TASHI CTOR TO SPECIFY Performed By: #### L 400.0001 #### [facility] Laboratory [address] [place], [address] Comprehensive Metabolic Prof ilon 09-10-2024 Albumin [Mass/Vol] 3.7 g/dL Normal 3.2-5.0 [facility] Comment on above: Performed By: #### L 502.0500, L500.4050, L500.4100 #### [facility] Laboratory [address] [place], [address] Albumin/Globulin [Mass ratio] 1.0 {ratio} Normal 0.9-2.4 [facility] Comment on above: Performed By: #### L 502.0500, L500.4050, L500.4100 #### [facility] Laboratory [address] [place], [address] ALK P 136 U/L High 45-117 [facility] Comment on above: Performed By: #### L 502.0500, L500.4050, L500.4100 #### [facility] Laboratory [address] [place], [address] ALT [Catalytic activity/Vol] 34 U/L Normal 16-61 [facility] Comment on above: Performed By: #### L 502.0500, L500.4050, L500.4100 #### [facility] Laboratory [address] [place], [address] AST [Catalytic activity/Vol] 19 U/L Normal 15-37 [facility] Comment on above: Performed By: #### L 502.0500, L500.4050, L500.4100 #### [facility] Laboratory [address] [place], [address] Bilirubin [Mass/Vol] 0.70 mg/dL Normal 0.20-1.00 [facility] Comment on above: Result Comment: For patients on eltrombopag therapy, use of Dimension [place] TBIL is not recommended. Performed By: #### L 502.0500, L500.4050, L500.4100 #### [facility] Laboratory [address] [place], [address] BUN/CRE 16.0 RATIO Normal 10-20 [facility] Comment on above: Performed By: #### L 502.0500, L500.4050, L500.4100 #### [facility] Laboratory [address] [place], [address] CA,Total 10.3 mg/dL High 8.5-10.1 [facility] Comment on above: Performed By: #### L 502.0500, L500.4050, L500.4100 #### [facility] Laboratory [address] [place], [address] Chloride [Moles/Vol] 108 mmol/L High 98-107 [facility] Comment on above: Performed By: #### L 502.0500, L500.4050, L500.4100 #### [facility] Laboratory [address] [place], [address] CO2 [Moles/Vol] 24.0 mmol/L Normal 21.0-32.0 [facility] Comment on above: Performed By: #### L 502.0500, L500.4050, L500.4100 #### [facility] Laboratory [address] [place], [address] Creatinine [Mass/Vol] 1.00 mg/dL Normal 0.70-1.30 [facility] Comment on above: Result Comment: The validity of the calculated GFR GFRAA in patients over 70 years has not been determined. Clinical correlation is essential. Performed By: #### L 502.0500, L500.4050, L500.4100 #### [facility] [address] [place], [address] EST GFR - AA 95 mL/min Normal >60 [facility] Comment on above: Result Comment: Afri can [place] GFR Calc Performed By: #### L 502.0500, L500.4050, L500.4100 #### [facility] [address] [place], [address] GAP 5 Normal 5-15 [facility] Comment on above: Performed By: #### L 502.0500, L500.4050, L500.4100 #### [facility] Laboratory [address] [place], [address] GFR/1.73 sq M.predicted among non-blacks MDRD (S/P/Bld) [Vol rate/Area] 79 mL/min/{1.73_m2} Normal >60 [facility] Comment on above: Result Comment: Non- GFR Calc Performed By: #### L 502.0500, L500.4050, L500.4100 #### [facility] Laboratory [address] [place], [address] Globulin (S) [Mass/Vol] 3.6 g/dL Normal 2.2-4.2 [facility] Comment on above: Performed By: #### L 502.0500, L500.4050, L500.4100 #### [facility] Laboratory [address] [place], [address] Glucose [Mass/Vol] 119 mg/dL High 74-106 [facility] Comment on above: Result Comment: Fast ing Glucose result from 100 to 125 mg/dL suggests IMPAIRED HOMEOSTASIS per A.D.A. criteria. Performed By: #### L 502.0500, L500.4050, L500.4100 #### [facility] [address] [place], [address] Potassium [Moles/Vol] 4.3 mmol/L Normal 3.5-5.1 [facility] Comment on above: Performed By: #### L 502.0500, L500.4050, L500.4100 #### [facility] [address] [place], [address] Sodium [Moles/Vol] 138 mmol/L Normal 136-145 [facility] Comment on above: Performed By: #### L 502.0500, L500.4050, L500.4100 #### [facility] [address] [place], [address] T PROT 7.3 g/dL Normal 6.4-8.2 [facility] Comment on above: Performed By: #### L 502.0500, L500.4050, L500.4100 #### [facility] [address] [place], [address] Urea nitrogen [Mass/Vol] 16 mg/dL Normal 7-18 [facility] Comment on above: Performed By: #### L 502.0500, L500.4050, L500.4100 #### [facility] [address] [place], [address] Lipid Profileon 09-10-2024 Cholesterol [Mass/Vol] 118 mg/dL Normal 200 [facility] Comment on above: Result Comment: <200 mg/dL Desirable 200-240 mg/dL Borderline >240 mg/dL High Risk Performed By: #### L 502.0500, L500.4050, L500.4100 ####[facility] [facility] [address] [place], [address] Cholesterol in HDL [Mass/Vol] 39 mg/dL Low [facility] Comment on above: Result Comment: The drugs N-Acetylcysteine and Metamizole may falsely depress this assay. Reference Range HDL <40 mg/dL Low HDL Cholesterol HDL >or= 60 mg/dL High HDL Cholesterol Performed By: #### L 502.0500, L500.4050, L500.4100 ####[facility] [address] [place], [address] Cholesterol in LDL [Mass/Vol] 55 mg/dL Normal 0-130 [facility] Comment on above: Performed By: #### L 502.0500, L500.4050, L500.4100 ####[facility] [address] [place], [address] Cholesterol in VLDL [Mass/Vol] 24 mg/dL Normal 5-40 [facility] Comment on above: Performed By: #### L 502.0500, L500.4050, L500.4100 ####[facility] [address] [place], [address] Triglyceride [Mass/Vol] 121 mg/dL Normal [facility] Comment on above: Result Comment: The drugs N-Acetylcysteine and Metamizole may falsely depress this assay. Serum Triglycerides Reference Interval Normal <150 mg/dL Borderline high 150 - 199 mg/dL High 200 - 499 mg/dL Very High > or = 500 mg/dL Performed By: #### L 502.0500, L500.4050, L500.4100 ####[facility] [address] [place], [address] Microalbumin,Random Urineon 09-10-2024 MICROALBUMIN,UR 11.2 mg/L Normal NO RANGE EST. [facility] Comment on above: Performed By: #### L 502.0500, L500.4050, L500.4100 #### [facility] Laboratory [address] [place], [address] Extremity Upper without Cont raon 08-01-2024 Extremity Upper without Contra [facility] Imaging Services [address] [place] [address] Extremity Upper without Contra MR#: [id number] Acct: [id number] Name: ALBIN ISSA Rep #: [id number] : 1955 M 69 From: Jhon Gage MD PCP: Dr. Speedy Boswell MD Status: REG CLI Study: Extremity Upper without Contra Date of Exam: 0 08/01/24 Exam# [id number] Ordering Dr: Speedy Boswell MD [id number] EXAM: CT RIGHT UPPER EXTREMITY WITHOUT INTRAVENOUS CONTRAST, SHOULDER CLINICAL INDICATION: right shoulder pain TECHNIQUE: Helically acquired images were obtained of the right shoulder without intravenous contrast. 2-D reformats were performed by the technologist. This CT exam was performed using one or more of the following dose reduction techniques: automated exposure control, adjustment of the mA and/or kV according to patient size, and/or use of iterative reconstruction technique. COMPARISON: No relevant prior studies available. FINDINGS: BONES/JOINTS: There is mild elevation of the humeral head and glenoid fossa which can seen in rotator cuff injuries. There is no obvious tear identified. There are degenerative changes with narrowing of glenohumeral joint. No acute fracture. No subluxation. Normal alignment. SOFT TISSUES: Unremarkable. No soft tissue swelling or gas. No radiopaque foreign body. CT/Extremity Upper without Contra IMPRESSION: Degenerative changes with narrowing of the glenohumeral joint. There is also elevation of the humeral head in the glenoid which can be seen in chronic rotator cuff injuries. There are no acute osseous abnormalities. If indicated further evaluation with MRI or CT arthrogram may be beneficial. Electronically Signed: Jhon Gage MD at 23:55 EDT , CC: Dr. Speedy Boswell MD Salvage Engineer: Signed Normal [facility] Extremity Upper without Contra [facility] Imaging Services [address] [place] [address] Extremity Upper without Contra MR#: [id number] Acct: [id number] Name: ALBIN ISSA Rep #: [id number] : 1955 69 From: Jhon Gage MD PCP: Dr. Speedy Boswell MD Status: REG CL Study: Extremity Upper without Contra Date of Exam: 0 08/01/24 Exam# [id number] Ordering Dr: Speedy Boswell MD [id number] EXAM: CT LEFT UPPER EXTREMITY WITHOUT INTRAVENOUS CONTRAST, ELBOW CLINICAL INDICATION: left elbow pain TECHNIQUE: Helically acquired images were obtained of the left elbow without intravenous contrast. 2-D reformats were performed by the technologist. This CT exam was performed using one or more of the following dose reduction techniques: automated exposure control, adjustment of the mA and/or kV according to patient size, and/or use of iterative reconstruction technique. COMPARISON: No relevant prior studies available. FINDINGS: BONES/JOINTS: There are no acute osseous abnormalities. The elbow joint space is maintained. There is an orthopedic plate and screws across an old distal humerus fracture. No sclerotic or destructive changes. SOFT TISSUES: Unremarkable. No soft tissue swelling or gas. No radiopaque foreign body. CT/Extremity Upper without Contra IMPRESSION: Hardware across an old distal humerus fracture. There are no acute abnormalities of the elbow. Electronically Signed: Jhon Gage MD at 23:57 EDT , CC: Dr. Speedy Boswell MD Salvage Engineer: Signed Normal [facility] Emergency Department Summary on 06-29-2024 Emergency Department Summary [facility] Medical Records Department [address] [place] [address] Emergency Department Summary 06/29/24 MR#: [id number] Acct: [id number] Name: ALBIN ISSA Rep #: [id number] : 1955 69 From: Joce Serrano MD PCP: Dr. Speedy Boswell MD Status:REG ER Location: ED HPI HPI - Fall History of Present Illness Chief Complaint: Fall Detail of Chief Complaint: Patient fell forward injuring his left knee and right shoulder Occured/Mechanism Occurred: Days Narrative: Patient states he was in the far commode. The light sensor detected no motion and went black. Patient thought he was grabbing onto the guard rail and fell forward landing on his left knee and hitting his right shoulder against the stall door. Usually ambulates: - (Able to ambulate short distances otherwise has a motorized wheelchair) Pain/Injury Location: Right shoulder and left knee Quality of Pain: Dull and Aching Current Severity: Mild Maximum Severity: Moderate Worsened by: Palpation and movement Relieved by: Nothing Associated Symptoms Associated Symptoms: Negative for Parasthesias, Weakness, Loss of function, Inability to ambulate, Loss of consciousness or Amnesia Narrative Narrative: Patient is a 69-year-old male. Patient has history of coronary disease, hypertension, ischemic cardiomyopathy, mixed hyperlipidemia, essential hypertension who had a mechanical fall this past weekend. Patient states he was in the commode. The lights went out. He thought he was reaching for a rail. There was no rail. He fell forward injuring his right shoulder and left knee. He is concerned that one a stitch at the medial arthroscopy site ruptured. He had arthroscopy performed by Dr. James 2 weeks ago. He had a meniscal injury detected. He denies head trauma. Denies loss of conscious. Night being amnestic. He denied being dazed. Denies neck pain. He complains of pain in the right shoulder. He denies pain in the right elbow, wrist hand or digits. He does complain of pain left knee. There is swelling and discoloration of the left knee. 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 Stuttering History of pain when walking History of edema History of echocardiogram History of stress test Cardiology follow-up encounter Lateral epicondylitis of left elbow Left elbow pain Over 65 years old COVID-19 Fracture, humerus Fall Cancer Alcohol abuse Depression Former smoker CPAP (continuous positive airway pressure) dependence Pacemaker TIA (transient ischemic attack) Esophageal foreign body Stroke-like symptoms Paresthesia of left upper extremity Renal calculi GERD (gastroesophageal reflux disease) Chest pain Mixed hyperlipidemia Essential hypertension Obesity (BMI 30-39.9) Surgical wound dehiscence Above knee amputation of right lower extremity Debility Lymphedema of right lower extremity Automatic implantable cardioverter-defibril lator in situ Chronic systolic congestive heart failure GERD (gastroesophageal reflux disease) Atherosclerotic heart disease of alutiiq coronary artery without angina pectoris Shortness of breath History of 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 Ischemic cardiomyopathy ( 10/30/23) Atherosclerosis of coronary artery bypass graft without angina pectoris Gastroenteritis SIRS (systemic inflammatory response syndrome) Morbid obesity with BMI of 40.0-44.9, adult Effects of radiation Acute lymphangitis of right lower extremity ICD (implantable cardioverter-defibril lator) in place ( 08/17/10) Lymphedema of Right Leg CAD (coronary artery disease) Chronic Systolic CHF - EF 45% GERD (gastroesophageal reflux disease) Home Medications ???Medication ???Instructions ???Recorded ???Last Taken ???Type aspirin 81 mg chewable tablet 81 mg PO QHS Heart health 06/09/17 06/10/24 History pantoprazole 40 mg tablet,delayed 40 mg PO DAILY gerd #30 tabs 01/08/20 06/11/24 Rx release gabapentin 300 mg capsule 300 mg PO QHS Rls 09/21/20 06/10/24 History temazepam 15 mg capsule 15 mg PO QHS PRN Sleep 09/21/20 06/10/24 History trazodone 50 mg tablet 50 mg PO QHS sleep 03/22/21 06/10/24 History escitalopram oxalate 20 mg tablet 20 mg PO DAILY 08/20/22 06/11/24 History nitroglycerin 0.4 mg sublingual 0.4 mg sublingual Q5M PRN chest 10/17/22 Unknown Rx tablet pain #25 tabs fexofenadine 180 mg tablet 180 mg PO DAILY 03/27/23 06/11/24 History (Romana Allergy) potassium chloride 20 mEq 40 meq (2 x 20 mEq) (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 Normal [facility] Knee 4 or More Viewson 06-29 Knee 4 or More Views [facility] Imaging Services [address] [place] [address] Knee 4 or More Views MR#: [id number] Acct: [id number] Name: ALBIN ISSA Rep #: [id number] : 1955 M 69 From: Francisco Javier Donaldson MD PCP: Dr. Speedy Boswell MD Status: DEP ER Study: Knee 4 or More Views Date of Exam: 06/29/24 Exam# [id number] Ordering Dr: Joce Serrano MD [id number] INDICATION: Trauma, knee injury with pain EXAMINATION/TECHNIQUE : X-RAY - LEFT XR Knee Complete 4 Views or More 4 VIEWS COMPARISON: None. __ FINDINGS: SOFT TISSUES: No soft tissue swelling or gas. No radiopaque foreign body. BONES/JOINTS: No acute fracture. Joint spaces anatomically aligned with mild tricompartmental degenerative changes. No sclerotic or destructive changes observed. RAD/Knee 4 or More Views IMPRESSION: Degenerative changes without acute bony abnormality. Electronically Signed: Francisco Javier Donaldson MD at 21:40 EDT , CC: Dr. Speedy Boswell MD; Dr. Joce Serrano MD Salvage Engineer: Signed Normal [facility] Shoulder min 2 Viewson 06-29 Shoulder min 2 Views [facility] [address] [place] [address] [id number] Shoulder min 2 Views MR#: [id number] Acct: [id number] Name: ALBIN ISSA Rep #: [id number] : 1955 M 69 From: Francisco Javier Donaldson MD PCP: Dr. Speedy Boswell MD Status: [facility] Study: Shoulder min 2 Views Date of Exam: 06/29/24 Exam# [id number] Ordering Dr: Joce Serrano MD [id number] INDICATION: Trauma, shoulder injury and pain EXAMINATION/TECHNIQUE : X-RAY - RIGHT XR Shoulder Min 2 Views 4 VIEWS COMPARISON: 04/26/2018 __ FINDINGS: SOFT TISSUES: No soft tissue swelling or gas. No radiopaque foreign body. BONES/JOINTS: No acute fracture. Joint spaces anatomically aligned with degenerative changes. No sclerotic or destructive changes observed. RAD/Shoulder min 2 Views IMPRESSION: No acute bony abnormality. Electronically Signed: Francisco Javier Donaldson MD at 21:50 EDT Reading Location ID and State: [facility] / [place] Tel , Service support , CC: Dr. Speedy Boswell MD; Dr. Joce Serrano MD Salvage Engineer: Signed Normal [facility] Discharge Instructionon 06-01 Discharge Instruction [facility] Medical Records Department [address] [place] [address] Instructions for Home/Discharge Instructions 06/12/24 0759 MR#: [id number] Acct: [id number] Name: ALBIN ISSA Rep #: [id number] : 1955 69 From: Shasha BRENNAN PCP: Dr. Speedy Boswell MD Status:ADM ANALISA Discharge Instructions Diet Discharge Diet: No restrictions Activity Discharge Activity: Return to Normal Activity May shower in (days): 3 Weight Bearing Status: Weight bearing as tolerated Dressing / Incision Call your doctor if your incision/area has: Continuous Slow Oozing, Sudden Increased Bleeding, Increased Pain/ Swelling, Increased Redness, Foul Smelling Discharge and Swelling at the incision site Call your doctor if you observe: Fever of 101 or Higher, Change in Color, Inability to urinate, Inability to have a bowel movement, Using more than 1 pad per hour, Dizziness, Chest pain, Calf discomfort and Uncontrolled pain Remove Dressing in: 1 day Cleanse incision/area with: Soap Water and Keep Dressing Clean Dry Follow Up Care When: In 2 weeks as previously scheduled. Test Results: Test results from this visit will be discussed in further detail at your follow-up appointment, if applicable. Discharge Plan Admission Admit Date/Time: 06/11/24 08:34 Attending Provider: Renny James Primary Care Provider: Speedy Boswell Consulting Providers: Jay Cruz Discharge Orders/Prescriptions Prescriptions: New acetaminophen 500 mg Tablet 1,000 mg PO Q8 Qty: 180 0RF aspirin 81 mg Tablet,Chewable 81 mg PO BID 14 Days Qty: 28 0RF Continued multivitamin [Daily Multi-Vitamin] Tablet 1 tab PO DAILY nitroglycerin 0.4 mg tablet, sublingual 0.4 mg sublingual Q5M PRN (Reason: chest pain) Qty: 25 3RF Rx Instructions: do not exceed 3 doses per episode Held aspirin 81 MG tablet,chewable 81 mg PO QHS Hold Instructions: Resume on 06/26/24. Patient Comments: TAKES WITH NIASPAN TO PREVENT HOT FLASHES Rx Instructions: will stop 5 day prior No Action pantoprazole 40 mg tablet,delayed release (DR/EC) 40 mg PO DAILY Qty: 30 11RF gabapentin 300 mg capsule 300 mg PO QHS temazepam 15 mg capsule 15 mg PO QHS PRN (Reason: Sleep) trazodone 50 mg tablet 50 mg PO QHS escitalopram oxalate 20 mg tablet 20 mg PO DAILY fexofenadine [Romana Allergy] 180 mg tablet 180 mg PO DAILY tamsulosin 0.4 mg capsule 0.4 mg PO DAILY Patient Comments: TAKE 1 CAPSULE BY MOUTH EVERY DAY dapagliflozin propanediol [Farxiga] 10 mg tablet 10 mg PO DAILY Qty: 30 11RF potassium chloride 20 mEq tablet extended release 40 meq PO QDAY Qty: 180 3RF clopidogrel [Plavix] 75 mg tablet 75 mg PO DAILY Qty: 90 3RF Patient Comments: WILL STOP 5 DAYS PRIOR TO OR furosemide 40 mg tablet 40 mg PO BID Qty: 180 3RF Rx Instructions: water retention atorvastatin 80 mg tablet 80 mg PO QHS Qty: 90 3RF carvedilol 25 mg tablet 25 mg PO BID Qty: 180 3RF isosorbide mononitrate 60 mg tablet extended release 24 hr 60 mg PO BID Qty: 180 3RF ramipril 10 mg capsule 10 mg PO DAILY Qty: 90 4RF Referrals / Follow Up: Speedy Boswell MD [Primary Care Provider] - 06/12/24 0800 Shasha BRENNAN CC: Dr. Jay Cruz DO; Dr. Speedy Boswell MD Signed Normal [facility] Bedside Glucoseon 06-11-2024 FINGERSTICK GLU 124 mg/dL High 74-106 [facility] Comment on above: Result Comment: EVAN MELISSA OF PATIENT CARE PER NURSING PROTOCOL Performed By: #### L 501.080 ####[facility] [address] [place], [address] MR/POSTOP.ANEon 06-11-2024 MR/POSTOP.ANE [facility] Medical Records Department [address] [facility] [place] [address] Anesthesia Postop Eval I 06/11/24826 MR#: [id number] Acct: [id number] Name: ALBIN ISSA Rep #: [id number] : 1955 69 From: Desmond Wills CRNA PCP: Dr. Speedy Boswell MD Status:REG SDC Y Race: C Location: [place] [address] Anesthesia: Postop Eval I Current Vital Signs Temperature: 97.4 F Pulse Rate: 64 Blood Pressure: 108/61 Respiratory Rate: 14 Pulse Ox: 94 Oxygen Delivery Method: Room Air Assessment Airway patent: Yes Spontaneous unlabored respirations: Yes Mental status: Awake nausea: No Vomiting: No Anesthesia Complication: No Fluid Hydration Crystalloid volume administer (ml): 1,000 Total IV fluid infused: 1,000 Progress Note Anesthesia document: Postop Eval 1 completed: Yes 06/11/24827 Date Desmond Wills INTER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 ENGINEER Cosigner Signature: Date CC: Signed Normal [facility] MR/[id number] 06-11-2024 [facility] Medical Records Department [address] [facility] [place] [address] Anesthesia Postop Eval II 06/11/2438 MR#: [id number] Acct: [id number] Name: ALBIN ISSA Rep #: [id number] : 1955 69 From: Paco Browne MD PCP: Dr. Speedy Boswell MD Status:REG SDC Y Race: C Location: [place] [address] Anesthesia Postop Eval I Sum Postop Eval Completion status Anesthesia document: Postop Eval 1 completed: Yes Anesthesia Postop Eval I Summary Anesthesia Postop Eval I Summary: Anesthesia Postop Eval I: Assessment Summary Airway patent Yes 06/11/24 08:28 INTER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 [email or web address].[email or web address] Spontaneous unlabored Yes 06/11/24 08:28 INTER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 ENGINEER.JBLOU respirations Mental status Awake 06/11/24 08:28 INTER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 ENGINEER.JBLOU nausea No 06/11/24 08:28 INTER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 ENGINEER.JBLOU Vomiting No 06/11/24 08:28 INTER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 ENGINEER.JBLOU Anesthesia Postop Eval I: Fluid Summary Crystalloid volume administer 1,000 06/11/24 08:28 INTER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 ENGINEER.JBLOU (ml) Colloids volume administered ( ml) Blood Product volume administered (ml) Total IV fluid infused 1,000 06/11/24 08:28 INTER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 ENGINEER.JBLOU Anesthesia Postop Eval I: Summary Notes Anesthesia Complication No 06/11/24 08:28 INTER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 ENGINEER.JBLOU Anesthesia Complication Comment: Post-operative progress note Anesthesia: Postop Eval II Evaluation Mental status: Awake Pain Level: 0 nausea: No Vomiting: No 06/11/24837 Date Paco Browne MD Cosigner Signature: Date CC: Signed Normal [facility] Operative Reporton 4 Operative Report [facility] Medical Records Department [address] [place] [address] Operative Report 06/11/24827 MR#: [id number] Acct: [id number] Name: ALBIN ISSA Rep #: [id number] : 1955 69 From: Renny James DO PCP: Dr. Speedy Boswell MD Status:[facility] Location: [place] [address] Report of Operation Date of Procedure: 06/11/24 Description of Surgical Findings:: Preoperative diagnosis: Left knee suspected internal derangement Postoperative diagnosis: 1. Left knee parrot-beak posterior horn medial meniscus tear 2. Grade IV chondromalacia patellofemoral 3. Grade III chondromalacia medial femoral condyle 4. Hypertrophic fat pad right knee with fat pad impingement Procedure: 1. Left knee diagnostic arthroscopy 2. Left knee partial medial meniscectomy, chondroplasty medial femoral condyle 3. Arthroscopic left knee fat pad debridement Surgeon: Renny James DO Printer Slotter Helper: Shasha Teran PA-C Anesthesia: General LMA Anesthesiologist: Dr. Browne Estimated blood loss: 2 cc IV fluids: Per anesthesia record Urine output: None recorded Specimen: None Implants: None Packing/drains: None Complications: None apparent Preoperative indications: This is a 69-year-old male seen in the outpatient setting for left knee pain. Patient has multiple comorbidities including CAD, history of pacemaker and defibrillator, ischemic cardiomyopathy, diabetes mellitus. He had minimal arthritic changes on x-ray. He underwent multiple corticosteroid injection of the left knee with only intermittent pain relief. 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 He felt that he is unable to live with the current pain of his left knee and wished to explore surgical options. Due to his cardiac devices, we are unable to obtain an MRI of the left knee. A CT arthrogram of the left knee demonstrated mild degenerative changes with no obvious internal derangement. Obviously, the imaging is limited and I suspected internal derangement in the form of likely meniscus injury/tearing. After deliberation, we both felt if deemed safe by his medical providers a diagnostic arthroscopy was indicated. I reviewed the risks, benefits, and alternatives to the procedure.He agreed to proceed. Risks included but were not limited to bleeding, infection, loss of life or limb, need for additional surgery, persistent pain, posttraumatic arthritis, neurovascular injury, stiffness, DVT or PE, risk of anesthesia. Informed consent obtained. Description of procedure: Patient identified preoperative holding her by name, correct number, and date of . The operative extremity was marked. All questions were answered to the patient satisfaction. At time of his procedure, patient brought the operative suite positioned supine on standard operating table. All bony prominences well-padded. General anesthesia was administered and LMA was placed. A well-padded pneumatic tourniquet was applied to the operative upper thigh. An arthroscopic post was placed along the lateral aspect of the operative thigh. We prepped and draped the left lower extremity in normal, sterile peak fashion. We performed timeout with all parties in attendance in agreement with the side, site, operation be performed. 3 g Ancef was administered by anesthesia staff prior to tourniquet ablation. I then exsanguinated left lower extremity with Esmarch bandage. Tourniquet was inflated to 250 mmHg for approximately 15 minutes. Esmarch was removed. Standard anterolateral portal was then established 90 degrees of flexion. Blunt tipped trocar was used to enter the knee joint. Knee was filled with normal saline with epinephrine. Arthroscope was then introduced. Diagnostic arthroscopy of the patellofemoral joint demonstrated grade 4 patellofemoral cartilage chondromalacia diffusely. Medial lateral gutter was unremarkable. Hypertrophic fat pad was noted and appeared to be impinging in all 3 compartments. Valgus stress was applied the knee to anterior the medial compartment with the knee in extension. Anterior medial portal was established under direct visualization. Medial compartment was then examined. Grade III chondromalacia was noted the medial femoral condyle. Parrot-beak tear of the posterior horn was noted. Partial medial meniscectomy was performed in standard fashion with combination of baskets and arthroscopic shaver. Stable chondral rim was established. Abrasion chondroplasty was performed of unstable chondral flaps and medial femoral condyle. Fat pad was excised with the arthroscopic shaver. ACL was probed and was pristine. Lateral compartment appeared well-preserved with minimal degenerative changes no obvious meniscus tear. The knee was thoroughly lavaged after debridement of the fat pad with (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 Normal [facility] Comprehensive Metabolic Prof ilon 05-29-2024 Albumin [Mass/Vol] 3.8 g/dL Normal 3.2-5.0 [facility] Comment on above: Performed By: #### L 500.4100, L500.4050 ####[facility] [address] [place], [address] Albumin/Globulin [Mass ratio] 1.1 {ratio} Normal 0.9-2.4 [facility] Comment on above: Performed By: #### L 500.4100, L500.4050 ####[facility] [address] [place], [address] ALK P 129 U/L High 45-117 [facility] Comment on above: Performed By: #### L 500.4100, L500.4050 ####[facility] [address] [place], [address] ALT [Catalytic activity/Vol] 37 U/L Normal 16-61 [facility] Comment on above: Performed By: #### L 500.4100, L500.4050 ####[facility] [address] [place], [address] AST [Catalytic activity/Vol] 20 U/L Normal 15-37 [facility] Comment on above: Performed By: #### L 500.4100, L500.4050 ####[facility] [address] [place], [address] Bilirubin [Mass/Vol] 0.50 mg/dL Normal 0.20-1.00 [facility] Comment on above: Result Comment: For patients on eltrombopag therapy, use of Dimension [place] TBIL is not recommended. Performed By: #### L 500.4100, L500.4050 ####[facility] [address] [place], [address] BUN/CRE 12.1 RATIO Normal 10-20 [facility] Comment on above: Performed By: #### L 500.4100, L500.4050 ####[facility] [address] [place], [address] CA,Total 9.8 mg/dL Normal 8.5-10.1 [facility] Comment on above: Performed By: #### L 500.4100, L500.4050 ####[facility] [address] [place], [address] Chloride [Moles/Vol] 105 mmol/L Normal 98-107 [facility] Comment on above: Performed By: #### L 500.4100, L500.4050 ####[facility] [address] [place], [address] CO2 [Moles/Vol] 24.0 mmol/L Normal 21.0-32.0 [facility] Comment on above: Performed By: #### L 500.4100, L500.4050 ####[facility] [address] [place], [address] Creatinine [Mass/Vol] 1.41 mg/dL High 0.70-1.30 [facility] Comment on above: Result Comment: The validity of the calculated GFR GFRAA in patients over 70 years has not been determined. Clinical correlation is essential. Performed By: #### L 500.4100, L500.4050 ####[facility] [address] [place], [address] EST GFR - AA 64 mL/min Normal >60 [facility] Comment on above: Result Comment: Afri can [place] GFR Calc Performed By: #### L 500.4100, L500.4050 ####[facility] [address] [place], [address] GAP 11 Normal 5-15 [facility] Comment on above: Performed By: #### L 500.4100, L500.4050 ####[facility] [address] [place], [address] GFR/1.73 sq M.predicted among non-blacks MDRD (S/P/Bld) [Vol rate/Area] 53 mL/min/{1.73_m2} Low >60 [facility] Comment on above: Result Comment: Non- GFR Calc Performed By: #### L 500.4100, L500.4050 ####[facility] [address] [place], [address] Globulin (S) [Mass/Vol] 3.5 g/dL Normal 2.2-4.2 [facility] Comment on above: Performed By: #### L 500.4100, L500.4050 ####[facility] [address] [place], [address] Glucose [Mass/Vol] 122 mg/dL High 74-106 [facility] Comment on above: Result Comment: Fast ing Glucose result from 100 to 125 mg/dL suggests IMPAIRED HOMEOSTASIS per A.D.A. criteria. Performed By: #### L 500.4100, L500.4050 ####[facility] [address] [place], [address] Potassium [Moles/Vol] 3.7 mmol/L Normal 3.5-5.1 [facility] Comment on above: Performed By: #### L 500.4100, L500.4050 ####[facility] [address] [place], [address] Sodium [Moles/Vol] 140 mmol/L Normal 136-145 [facility] Comment on above: Performed By: #### L 500.4100, L500.4050 ####[facility] [address] [place], [address] T PROT 7.3 g/dL Normal 6.4-8.2 [facility] Comment on above: Performed By: #### L 500.4100, L500.4050 ####[facility] [address] [place], [address] Urea nitrogen [Mass/Vol] 17 mg/dL Normal 7-18 [facility] Comment on above: Performed By: #### L 500.4100, L500.4050 ####[facility] [address] [place], [address] Lipid Profileon 05-29-2024 Cholesterol [Mass/Vol] 109 mg/dL Normal 200 [facility] Comment on above: Result Comment: <200 mg/dL Desirable 200-240 mg/dL Borderline >240 mg/dL High Risk Performed By: #### L 500.4100, L500.4050 ####[facility] [address] [place], [address] Cholesterol in HDL [Mass/Vol] 33 mg/dL Low [facility] Comment on above: Result Comment: The drugs N-Acetylcysteine and Metamizole may falsely depress this assay. Reference Range HDL <40 mg/dL Low HDL Cholesterol HDL >or= 60 mg/dL High HDL Cholesterol Performed By: #### L 500.4100, L500.4050 ####[facility] [address] [place], [address] Cholesterol in LDL [Mass/Vol] 49 mg/dL Normal 0-130 [facility] Comment on above: Performed By: #### L 500.4100, L500.4050 ####[facility] [address] [place], [address] Cholesterol in VLDL [Mass/Vol] 27 mg/dL Normal 5-40 [facility] Comment on above: Performed By: #### L 500.4100, L500.4050 ####[facility] [address] [place], [address] Triglyceride [Mass/Vol] 136 mg/dL Normal [facility] Comment on above: Result Comment: The drugs N-Acetylcysteine and Metamizole may falsely depress this assay. Serum Triglycerides Reference Interval Normal <150 mg/dL Borderline high 150 - 199 mg/dL High 200 - 499 mg/dL Very High > or = 500 mg/dL Performed By: #### L 500.4100, L500.4050 ####[facility] [address] [place], [address] Cardiology Visit Reporton Cardiology Visit Report [facility] [address] [place] [address] OFFICE VISIT Date of Service: 05/21/24 MR#: [id number] Acct: [id number] Name: ALBIN ISSA Rep #: [id number] : 1955 Provider: Dr. Delilah Villagomez MD Age/Sex: 69/M Location: [facility] Status: Signed HPI HPI History of Present Illness Details: This gentleman with history of coronary artery disease status post CABG is here for follow-up visit. Denies any chest pains or shortness of breath. No orthopnea. No PND. No ankle edema. No lightheadedness or dizziness. No palpitations. Intake Vital Signs 10/30/23 15:12 05/21/24 14:03 Height 5 ft 8 in 5 ft 8 in Weight: 294 lb BMI 44.6 BP 118/67 Blood Pressure Location Rt brachial Position Sitting Respiration 18 Pulse 69 Pulse Source Monitor Intake Visit Reasons: 6 M Network Desktop Support Specialist Required: No Accompanied by: Self Is patient in pain?: No Allergies No Known Allergies Allergy (Verified 05/21/24 14:05) Medications ???Medication ???Instructions ???Recorded ???Confirmed ???Type aspirin 81 mg chewable tablet 81 mg PO QHS Heart health 06/09/17 05/21/24 History bupropion HCl 150 mg tablet,12 hr 150 mg PO BID Depression 01/08/18 05/21/24 History sustained-release pantoprazole 40 mg tablet,delayed 40 mg PO DAILY gerd #30 tabs 01/08/20 05/21/24 Rx release gabapentin 300 mg capsule 300 mg PO QHS Rls 09/21/20 05/21/24 History temazepam 15 mg capsule 15 mg PO QHS PRN Sleep 09/21/20 05/21/24 History trazodone 50 mg tablet 50 mg PO QHS sleep 03/22/21 05/21/24 History escitalopram oxalate 20 mg tablet 20 mg PO DAILY 08/20/22 05/21/24 History nitroglycerin 0.4 mg sublingual 0.4 mg sublingual Q5M PRN chest 10/17/22 05/21/24 Rx tablet pain #25 tabs prednisone 20 mg tablet 40 mg (2 x 20 mg) PO DAILY 5 days 10/27/22 05/21/24 Rx #10 tabs fexofenadine 180 mg tablet 180 mg PO DAILY 03/27/23 05/21/24 History (Romana Allergy) potassium chloride 20 mEq 40 meq (2 x 20 mEq) PO QDAY 08/09/23 05/21/24 Rx tablet,extended release supplement #180 tabs tamsulosin 0.4 mg capsule 0.4 mg PO DAILY 08/30/23 05/21/24 History clopidogrel 75 mg tablet (Plavix) 75 mg PO DAILY blood clots #90 tabs 09/11/23 05/21/24 Rx furosemide 40 mg tablet 40 mg PO BID #180 tabs 09/27/23 05/21/24 Rx atorvastatin 80 mg tablet 80 mg PO QHS cholesterol #90 tabs 11/26/23 05/21/24 Rx carvedilol 25 mg tablet 25 mg PO BID heart #180 tabs 11/26/23 05/21/24 Rx isosorbide mononitrate 60 mg 60 mg PO BID blood pressure #180 11/26/23 05/21/24 Rx tablet,extended release 24 hr tabs ramipril 10 mg capsule 10 mg PO DAILY #90 caps 04/06/24 05/21/24 Rx Ejection fraction %: 40 PFSH Medical History Lateral epicondylitis of left elbow Left elbow pain Over 65 years old COVID-19 Fracture, humerus Fall Cancer Hearing loss, left Hearing loss, right Alcohol abuse Depression Former smoker CPAP (continuous positive airway pressure) dependence Sleep apnea Pacemaker Myocardial infarct TIA (transient ischemic attack) Esophageal foreign body Stroke-like symptoms Paresthesia of left upper extremity Renal calculi GERD (gastroesophageal reflux disease) Chest pain Mixed hyperlipidemia Essential hypertension 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 on left side Obesity (BMI 30-39.9) Surgical wound dehiscence Above knee amputation of right lower extremity Debility Lymphedema of right lower extremity Automatic implantable cardioverter-defibril lator in situ Chronic systolic congestive heart failure GERD (gastroesophageal reflux disease) Atherosclerotic heart disease of alutiiq coronary artery without angina pectoris Shortness of breath History of 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 History of tobacco abuse Family history of CVA Ischemic cardiomyopathy ( 10/30/23) Atherosclerosis of coronary artery bypass graft without angina pectoris Gastroenteritis SIRS (systemic inflammatory response syndrome) Morbid obesity with BMI of 40.0-44.9, adult Effects of radiation Acute lymphangitis of right lower extremity ICD (implantable cardioverter-defibril lator) in place ( 08/17/10) Lymphedema of Right Leg CAD (coronary artery disease) Chronic Systolic CHF - EF 45% GERD (gastroesophageal reflux disease) Surgical History Status post right rotator cuff repair Presence of stent in coronary artery ( 10/15/13) Postsurgical aortocoronary bypass status ( 06/01/05) Family History Mother CAD (coronary artery disease) Father CVA (cerebral vascular accident) Myocardial infarction Brother CAD (coronary artery disease) Hx of CABG Brother CAD (coronary artery disease) Hx of CA (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 Normal [facility] CBC W/Diff, Automatedon Absolute Lymph 1.27 X10 3/uL Normal 0.83-4.51 [facility] Comment on above: Performed By: #### L 500.4050, L100.0100 ####[facility] [address] [place], [address] Absolute Neut 3.7 X10 3/uL Normal 2.0-7.7 [facility] Comment on above: Performed By: #### L 500.4050, L100.0100 ####[facility] [address] [place], [address] Basophils/100 WBC (Bld) 0.9 % Normal 0-1 [facility] Comment on above: Performed By: #### L 500.4050, L100.0100 ####[facility] [address] [place], [address] Eosinophils/100 WBC (Bld) 2.0 % Normal 0-5 [facility] Comment on above: Performed By: #### L 500.4050, L100.0100 ####[facility] [address] [place], [address] Erythrocyte distribution width (RBC) [Ratio] 13.5 % Normal 11.6-14.6 [facility] Comment on above: Performed By: #### L 500.4050, L100.0100 ####[facility] [address] [place], [address] Hematocrit (Bld) [Volume fraction] 43.3 % Normal 40-54 [facility] Comment on above: Performed By: #### L 500.4050, L100.0100 ####[facility] [address] [place], [address] Hemoglobin (Bld) [Mass/Vol] 14.0 g/dL Normal 13.0-16.5 [facility] Comment on above: Performed By: #### L 500.4050, L100.0100 ####[facility] [address] [place], [address] IG% 0.700 Normal 0.0-0.9 [facility] Comment on above: Result Comment: IG% - Immature Granulocytes (promyelocytes, myelocytes and metamyelocytes) > 1% indicates that a LEFT SHIFT is Present. Performed By: #### L 500.4050, L100.0100 ####[facility] [address] [place], [address] Lymphocytes/100 WBC (Bld) 22.6 % Normal 19-41 [facility] Comment on above: Performed By: #### L 500.4050, L100.0100 ####[facility] [address] [place], [address] MCH (RBC) [Entitic mass] 29.8 pg Normal 27.0-32.0 [facility] Comment on above: Performed By: #### L 500.4050, L100.0100 ####[facility] [address] [place], [address] MCHC (RBC) [Mass/Vol] 32.3 g/dL Normal 32-36 [facility] Comment on above: Performed By: #### L 500.4050, L100.0100 ####[facility] [address] [place], [address] MCV (RBC) [Entitic vol] 92.1 fL Normal 80-94 [facility] Comment on above: Performed By: #### L 500.4050, L100.0100 ####[facility] [address] [place], [address] Monocytes/100 WBC (Bld) 7.3 % Normal 0-10 [facility] Comment on above: Performed By: #### L 500.4050, L100.0100 ####[facility] [address] [place], [address] Neutrophils/100 WBC (Bld) 66.5 % Normal 47-70 [facility] Comment on above: Performed By: #### L 500.4050, L100.0100 ####[facility] [address] [place], [address] Nucleated RBC (Bld) [#/Vol] 0 10*3/uL Normal 0-5 [facility] Comment on above: Performed By: #### L 500.4050, L100.0100 ####[facility] [address] [place], [address] Platelet mean volume (Bld) [Entitic vol] 10.3 fL Normal 6.2-12.0 [facility] Comment on above: Performed By: #### L 500.4050, L100.0100 ####[facility] [address] [place], [address] Platelets (Bld) [#/Vol] 186 10*3/uL Normal 150-450 [facility] Comment on above: Performed By: #### L 500.4050, L100.0100 ####[facility] [address] [place], [address] RBC (Bld) [#/Vol] 4.70 10*6/uL Normal 4.6-6.2 [facility] Comment on above: Performed By: #### L 500.4050, L100.0100 ####[facility] [address] [place], [address] RDW SD 45.4 fl High 35.1-43.9 [facility] Comment on above: Performed By: #### L 500.4050, L100.0100 ####[facility] [address] [place], [address] WBC (Bld) [#/Vol] 5.6 10*3/uL Normal 4.4-11.0 [facility] Comment on above: Performed By: #### L 500.4050, L100.0100 ####[facility] [address] [place], [address] Comprehensive Metabolic Prof ilon 05-08-2024 Albumin [Mass/Vol] 3.6 g/dL Normal 3.2-5.0 [facility] Comment on above: Performed By: #### L 500.4050, L100.0100 ####[facility] [address] [place], [address] Albumin/Globulin [Mass ratio] 1.1 {ratio} Normal 0.9-2.4 [facility] Comment on above: Performed By: #### L 500.4050, L100.0100 ####[facility] [address] [place], [address] ALK P 133 U/L High 45-117 [facility] Comment on above: Performed By: #### L 500.4050, L100.0100 ####[facility] [address] [place], [address] ALT [Catalytic activity/Vol] 37 U/L Normal 16-61 [facility] Comment on above: Performed By: #### L 500.4050, L100.0100 ####[facility] [address] [place], [address] AST [Catalytic activity/Vol] 22 U/L Normal 15-37 [facility] Comment on above: Performed By: #### L 500.4050, L100.0100 ####[facility] [address] [place], [address] Bilirubin [Mass/Vol] 0.60 mg/dL Normal 0.20-1.00 [facility] Comment on above: Result Comment: For patients on eltrombopag therapy, use of Dimension [place] TBIL is not recommended. Performed By: #### L 500.4050, L100.0100 ####[facility] [address] [place], [address] BUN/CRE 11.9 RATIO Normal 10-20 [facility] Comment on above: Performed By: #### L 500.4050, L100.0100 ####[facility] [address] [place], [address] CA,Total 9.7 mg/dL Normal 8.5-10.1 [facility] Comment on above: Performed By: #### L 500.4050, L100.0100 ####[facility] [address] [place], [address] Chloride [Moles/Vol] 106 mmol/L Normal 98-107 [facility] Comment on above: Performed By: #### L 500.4050, L100.0100 ####[facility] [address] [place], [address] CO2 [Moles/Vol] 26.0 mmol/L Normal 21.0-32.0 [facility] Comment on above: Performed By: #### L 500.4050, L100.0100 ####[facility] [address] [place], [address] Creatinine [Mass/Vol] 1.26 mg/dL Normal 0.70-1.30 [facility] Comment on above: Result Comment: The validity of the calculated GFR GFRAA in patients over 70 years has not been determined. Clinical correlation is essential. Performed By: #### L 500.4050, L100.0100 ####[facility] [address] [place], [address] EST GFR - AA 73 mL/min Normal >60 [facility] Comment on above: Result Comment: Afri can [place] GFR Calc Performed By: #### L 500.4050, L100.0100 ####[facility] [address] [place], [address] GAP 7 Normal 5-15 [facility] Comment on above: Performed By: #### L 500.4050, L100.0100 ####[facility] [address] [place], [address] GFR/1.73 sq M.predicted among non-blacks MDRD (S/P/Bld) [Vol rate/Area] 60 mL/min/{1.73_m2} Normal >60 [facility] Comment on above: Result Comment: Non- GFR Calc Performed By: #### L 500.4050, L100.0100 ####[facility] [address] [place], [address] Globulin (S) [Mass/Vol] 3.3 g/dL Normal 2.2-4.2 [facility] Comment on above: Performed By: #### L 500.4050, L100.0100 ####[facility] [address] [place], [address] Glucose [Mass/Vol] 140 mg/dL High 74-106 [facility] Comment on above: Result Comment: Fast ing Glucose result greater than or equal to 126 mg/dL suggests DIABETES MELLITUS per A.D.A. criteria. Performed By: #### L 500.4050, L100.0100 ####[facility] [address] [place], [address] Potassium [Moles/Vol] 4.3 mmol/L Normal 3.5-5.1 [facility] Comment on above: Performed By: #### L 500.4050, L100.0100 ####[facility] [address] [place], [address] Sodium [Moles/Vol] 139 mmol/L Normal 136-145 [facility] Comment on above: Performed By: #### L 500.4050, L100.0100 ####[facility] [address] [place], [address] T PROT 6.9 g/dL Normal 6.4-8.2 [facility] Comment on above: Performed By: #### L 500.4050, L100.0100 ####[facility] [address] [place], [address] Urea nitrogen [Mass/Vol] 15 mg/dL Normal 7-18 [facility] Comment on above: Performed By: #### L 500.4050, L100.0100 ####[facility] [address] [place], [address] Office Visiton 03-30-2024 Follow-up visit [id number] Albin Issa 1955 M Date Provider Department Center 03/30/2024 [facility] None Family History Problem Relation Age of Onset Heart attack Mother Cancer Father Comments: liver Family Status - Relation Status Age at Mother Father Daughter Alive Level of Service:15273 GA OFFICE/OUTPT VISIT,PROCEDURE ONLY Reason for Visit and Comments: Follow-up [579170] - USG left ankle injection Normal [facility] PATIon 03-30-2024 [facility] Orthopaedics and Sports Medicine Patient Care Instructions [...] the office as soon as possible at [phone] Normal [facility] Progress Noteon 03-30-2024 Progress Note [facility]TS [facility]IC[facility] [address] [facility] [address] Dept: [phone] Dept Chief Complaint Patient presents with Follow-up USG left ankle injection Subjective History of Present Illness: Albin Issa is a 68 y.o. male who presents today for ultrasound guided injection of left ankle . He rates symptoms as a 3/10 at rest and a 5-6 /10 at worst. Imaging to date: X-ray May 2022 Prior targeted injections: Corticosteroid . Helpful.. Previous injection dates: May 2022, January 2023, August 2023 Fall risk assessment: Completed in the past 12 months Objective There were no vitals taken for this visit. Physical Exam: No sign of infection overlying injection site. External Notes No pertinent interval updates Labs No results found for: HGBA1C Lab [...] lidocaine. The patient tolerated the procedure well. Assessment Diagnosis Plan 1. Arthritis of left subtalar joint betamethasone acetate-betamethasone sodium phosphate (Celestone) injection 3 mg lidocaine (Xylocaine) 1 % injection 0.5 mL Plan Ultrasound-guided left ST CS injection today. Postinjection instructions reviewed. We discussed watching for any concerns around the injection site. She can use ice or Tylenol for pain or discomfort. Follow-up with a phone call in 2 weeks. Follow up if symptoms worsen or fail to improve. Kel Nielsen MD 03/30/2024 2:11 PM Please note that portions of this note may have been completed with voice recognition software. Documentation reviewed prior to signing but minor errors in workgroup leader may have occurred. [facility] No Panel InformationOrdered By: Hannah Howe on 01-16-2024 Prostate Specific Antigen Screen 0.33 ng/mL 0.00-4.00 [facility] Comment on above: This test was perfor med using the TPSA assay method for [employer] chemistry system. Values obtained with differentassay methods cannot be used interchangably.When changing PSA assays in the course of monitoring apatient, additional sequential testing should be carriedout to confirm baseline values. EP PROCEDURE - EPS/ABLATION/ DEVICEon 01-08-2024 EP PROCEDURE - EPS/ABLATION/DEVICE Pt is a 68M ICM s/p [employer] ICD, CAD s/p [place] 2004, s/p CABG 2004, s/p right AKA amputation, HLD. He was evaluated in EP clinic on 11/21/2023 for consultation. He reported occasional dyspnea on exertion. 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 He underwent successful placement of additional RA lead. Device generator exchanged. Excellent lead parameters. IV Vancomycin is utilized because: Physician/LACE STRIPPER/PA or pharmacist documentation of increased MRSA rate, either facility-wide or operation-specific Documentation of continuous inpatient stay more than 24 hours prior to the principal procedure PLAN: 1) Resume medications, hold AC for 24 hours. 2) Wound care 3) CXR 4) Aquacel patch for 7 day. 5) Device follow up in 1-2 weeks Table formatting from the original result was not included. Albin Issa EP Procedure - EPS/Ablation/Device Ordering Physician: DAVID RAMIREZ Order #: [id number] Study Date: 01/06/2024 Patient Information Name MRN Description Albin Issa [id number] 68 y.o. male Physicians Panel Physicians Referring Physician Case Authorizing Physician David Ramirez MD (Primary) MD David López MD Justin A Pieper, MD (Fellow) Procedures ICD Generator Implant ICD Generator Removal Lead Insertion Pre Procedure Diagnosis ICD (implantable cardioverter-defibril lator) battery depletion [Z45.02] Post Procedure Diagnosis ICD (implantable cardioverter-defibril lator) battery depletion [Z45.02] Indications ICD (implantable cardioverter-defibril lator) battery depletion [Z45.02 (ICD-10-CM)] Conclusion Pt is a 68M ICM s/p [employer] DC ICD, CAD s/p [place] 2004, s/p CABG 2004, s/p right AKA amputation, HLD. He was evaluated in EP clinic on 11/21/2023 for consultation. He reported occasional dyspnea on exertion. 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 He underwent successful placement of additional RA lead. Device generator exchanged. Excellent lead parameters. IV Vancomycin is utilized because: Physician/LACE STRIPPER/PA or pharmacist documentation of increased MRSA rate, either facility-wide or operation-specific Documentation of continuous inpatient stay more than 24 hours prior to the principal procedure PLAN: 1) Resume medications, hold AC for 24 hours. 2) Wound care 3) CXR 4) Aquacel patch for 7 day. 5) Device follow up in 1-2 weeks Consent The procedure was explained including the potential risks of infection, heart perforation, re-operation, and other risks pertinent to procedure. Informed consent and permission to proceed was given. Site Preparation On the day of the procedure, the patient was brought to the operating room and the left chest prepped with chloraprep. Site prepped by Rick Carmona RN. The patient was draped in the usual sterile manner. Device Technique Generator pocket opened. After local anesthesia was infiltrated in the pre-pectoral (above fascia) region, an incision was made to accommodate the size of the hardware. This portion of the procedure was performed using electrocautery and sharp dissection. The previous device was carefully dissected free of the fibrous tissues with close attention paid to not causing damage to the lead system. The device was removed from the pocket and hemostasis was then obtai ronald using electrocautery. Legs were not elevated during venous entry access. The venous system was accessed using a single subclavian stick (Seldinger). A new lead was placed into the high right atrium. The insertion technique used the following: SET PEEL-AWAY 6FR X 14CM and LEAD PACING 52CM 6FR ENDOCARDIUM TENDRIL STS BIPOLAR ACTIVE Tested the atrial lead. Injury current checked: Yes. Langberg maneuver performed: Yes. Movement of leads with inspiration: Yes. Sutured the atrial lead. Suture used: two 2-0 Nurolon - implanted lead Sutured the atrial lead. Suture used: two 2-0 Nurolon - abandoned lead Sutured the generator. Suture used: single 2-0 Nurolon The wound was irrigated copiously with 1 gram Ancef flush. It was then checked for hemostasis and foreign bodies. Closure used: Vicryl 2-0 and Stratafix 4-0 Drain/Packing: none Dressing: Aquacel Specimens: none Wound Classification: Clean [Class I] Estimated Blood Loss: [address] [employer] 2211-36 Current + Dr Rf - Explanted Model/Cat number: [id number] Serial number: [id number] Date Explanted: 01/06/2024 Pocket Location: Pre-pectoral As of 01/06/2024 Status: Explanted Lead Securement: 2 set screws torqued Defibrillator Crd [id number] Fortify Asr Parylene 2 - [id number] - Implanted Inventory item: DEFIBRILLATOR CRD [id number] FORTIFY ASR PARYLENE 2 Model/Cat number: [id number] Serial number: [id number] Accounts Receivable Associate: [employer] Date Implanted: 01/06/2024 Initial Device: No Pocket Location: Pre-pectoral P (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 Normal [facility] CHEM 6 (LYTES, BUN CREA)on 0 01-07-2024 Anion gap [Moles/Vol] 13 mmol/L Normal 7-17 [facility] Comment on above: Performed By: #### Nilam HOUSE CHM6 #### [facility] (DEFAULT) [address] [place] [address] Chloride [Moles/Vol] 105 mmol/L Normal 98-[address] [facility] Comment on above: Performed By: #### Nilam HOUSE CHM6 #### [facility] (DEFAULT) [address] [place] [address] CO2 [Moles/Vol] 25 mmol/L Normal 21-31 [facility] Comment on above: Performed By: #### Nilam HOUSE CHM6 #### [facility] (DEFAULT) [address] [place] [address] Creatinine [Mass/Vol] 1.24 mg/dL Normal 0.70-1.30 [facility] Comment on above: Performed By: #### Nilam HOUSE CHM6 #### [facility] (DEFAULT) [address] [place] [address] GFR/1.73 sq M.predicted among non-blacks MDRD (S/P/Bld) [Vol rate/Area] 63 mL/min/{1.73_m2} Normal >=[address] [facility] Comment on above: Result Comment: Repo rted eGFR is based on the CKD-EPI 2020 equation using creatinine, age, and sex. Performed By: #### CHANTELL DYSON6 #### [facility] (DEFAULT) [address] [place] [address] Potassium [Moles/Vol] 4.2 mmol/L Normal 3.5-5.0 [facility] Comment on above: Performed By: #### Nilam HOUSE CHM6 #### [facility] (DEFAULT) [address] [place] [address] Sodium [Moles/Vol] 139 mmol/L Normal 135-145 [facility] Comment on above: Performed By: #### ADRIANNE DYSON #### [facility] (DEFAULT) [address] [place] [address] Urea nitrogen [Mass/Vol] 19 mg/dL Normal 7-[address] [facility] Comment on above: Performed By: #### CHANTELL DYSON6 #### [facility] (DEFAULT) [address] [place] [address] Urea nitrogen/Creatinine [Mass ratio] 15 mg/mg Normal [facility] Comment on above: Performed By: #### CHANTELL DYSON6 #### [facility] (DEFAULT) [address] [place] [address] Anion gap [Moles/Vol] 13 mmol/L 7 - 17 mmol/L [facility] Chloride [Moles/Vol] 105 mmol/L 98 - 10 8 mmol/L [facility] CO2 [Moles/Vol] 25 mmol/L 21 - 31 mmol/L [facility] Creatinine [Mass/Vol] 1.24 mg/dL 0.70 - 1.30 mg/dL [facility] eGFR, CKD-EPI, Male 63 - PINF [facility] Comment on above: Reported eGFR is bas ed on the CKD-EPI 2020 equation using creatinine, age, and sex. Potassium [Moles/Vol] 4.2 mmol/L 3.5 - 5.0 mmol/L [facility] Sodium [Moles/Vol] 139 mmol/L 135 - 145 mmol/L [facility] Urea nitrogen [Mass/Vol] 19 mg/dL 7 - 25 mg/dL [facility] Urea nitrogen/Creatinine [Mass ratio] 15 mg/mg [facility] DEVICE EVALUATION (SCANNED)o n 01-07-2024 [facility] Radiology Study observation (narrative) [facility] EXTRA LAVENDER TOPon 024 [facility] MAGNESIUMon 01-07-2024 Magnesium [Mass/Vol] 2.1 mg/dL Normal 1.6-2.[address] [facility] Comment on above: Performed By: #### ADRIANNE DYSON #### [facility] (DEFAULT) [address] [place] [address] Interpretation and review of laboratory results Normal [facility] Magnesium [Mass/Vol] 2.1 mg/dL 1.6 - 2 .6 mg/dL [facility] No Panel Informationon 01-07 [facility] CBC AND ELECTRONIC DIFFon Basophils (Bld) [#/Vol] 0.07 10*3/uL Normal 0.00-0.[address] [facility] Comment on above: Performed By: #### L AB980 #### [facility] (DEFAULT) [address] [place] [address] Basophils/100 WBC (Bld) 0.8 % Normal [facility] Comment on above: Performed By: #### L AB980 #### [facility] (DEFAULT) [address] [place] [address] DIFF STATUS Electronic Differential Normal [facility] Comment on above: Performed By: #### L AB980 #### [facility] (DEFAULT) [address] [place] [address] Eosinophils (Bld) [#/Vol] 0.32 10*3/uL Normal 0.00-0.[address] [facility] Comment on above: Performed By: #### L AB980 #### [facility] (DEFAULT) [address] [place] [address] Eosinophils/100 WBC (Bld) 3.7 % Normal [facility] Comment on above: Performed By: #### L AB980 #### [facility] (DEFAULT) [address] [address] Hematocrit (Bld) [Volume fraction] 41.5 % Normal 39.6-48.[address] [facility] Comment on above: Performed By: #### L AB980 #### [facility] (DEFAULT) [address] [place] [address] Hemoglobin (Bld) [Mass/Vol] 13.8 g/dL Normal 13.4-16.[address] [facility] Comment on above: Performed By: #### L AB980 #### [facility] (DEFAULT) [address] [address] Immature Grans % 0.6 % Normal [facility] Comment on above: Performed By: #### L AB980 #### [facility] (DEFAULT) [address] [address] Immature Grans Absolute 0.05 K/uL Normal <=0.[address] [facility] Comment on above: Performed By: #### L AB980 #### [facility] (DEFAULT) [address] [address] Lymphocytes (Bld) [#/Vol] 2.14 10*3/uL Normal 0.83-3.[address] [facility] Comment on above: Performed By: #### L AB980 #### [facility] (DEFAULT) [address] [address] Lymphocytes/100 WBC (Bld) 24.7 % Normal [facility] Comment on above: Performed By: #### L AB980 #### [facility] (DEFAULT) [address] [address] MCV (RBC) [Entitic vol] 89.2 fL Normal 79.0-94.[address] [facility] Comment on above: Performed By: #### L AB980 #### [facility] (DEFAULT) [address] [address] Mean Cell Hgb 29.7 pg Normal 26.1-33.[address] [facility] Comment on above: Performed By: #### L AB980 #### [facility] (DEFAULT) [address] [address] Mean Cell Hgb Conc 33.3 g/dL Normal 31.9-36.5 [facility] Comment on above: Performed By: #### L AB980 #### [facility] (DEFAULT) [address] [address] Monocytes (Bld) [#/Vol] 0.64 10*3/uL Normal 0.24-0.[address] [facility] Comment on above: Performed By: #### L AB980 #### [facility] (DEFAULT) [address] [place] [address] Monocytes/100 WBC (Bld) 7.4 % Normal [facility] Comment on above: Performed By: #### L AB980 #### [facility] (DEFAULT) [address] [place] [address] Nucleated RBC 0.0 /100 WBC Normal <=0.2 [facility] Comment on above: Performed By: #### L AB980 #### [facility] (DEFAULT) [address] [place] [address] Platelet mean volume (Bld) [Entitic vol] 9.3 fL Normal 8.7-12.[address] [facility] Comment on above: Performed By: #### L AB980 #### [facility] (DEFAULT) [address] [place] [address] Platelets (Bld) [#/Vol] 220 10*3/uL Normal 146-[address] [facility] Comment on above: Performed By: #### L AB980 #### [facility] (DEFAULT) [address] [place] [address] RBC (Bld) [#/Vol] 4.65 10*6/uL Normal 4.38-5.[address] [facility] Comment on above: Performed By: #### L AB980 #### [facility] (DEFAULT) [address] [address] RBC Distribution 13.0 % Normal 10.9-14.3 [facility] Comment on above: Performed By: #### L AB980 #### [facility] (DEFAULT) [address] [place] [address] Segs + Bands Auto 62.8 % Normal [facility] Comment on above: Performed By: #### L AB980 #### [facility] (DEFAULT) [address] [place] [address] Segs + Bands,Absolute Auto 5.44 K/uL Normal 1.57-6.[address] [facility] Comment on above: Performed By: #### L AB980 #### [facility] (DEFAULT) [address] [place] [address] WBC (Bld) [#/Vol] 8.66 10*3/uL Normal 3.73-10.[address] [facility] Comment on above: Performed By: #### L AB980 #### [facility] (DEFAULT) [address] [place] [address] Basophils (Bld) [#/Vol] 0.07 10*3/uL 0.00 - 0.09 K/uL [facility] Basophils/100 WBC (Bld) 0.8 % [facility] Differential cell count method Nom (Bld) Electronic Differential [facility] Eosinophils (Bld) [#/Vol] 0.32 10*3/uL 0.00 - 0.48 K/uL [facility] Eosinophils/100 WBC (Bld) 3.7 % [facility] Erythrocyte distribution width (RBC) [Ratio] 13.0 % 10.9 - 14.3 % [facility] Hematocrit (Bld) [Volume fraction] 41.5 % 39.6 - 48.8 % [facility] Hemoglobin (Bld) [Mass/Vol] 13.8 g/dL 13.4 - 16.8 g/dL [facility] Immature granulocytes (Bld) [#/Vol] 0.05 10*3/uL NINF - 0.07 K/uL [facility] Immature granulocytes/100 WBC (Bld) 0.6 % [facility] Lymphocytes (Bld) [#/Vol] 2.14 10*3/uL 0.83 - 3.57 K/uL [facility] Lymphocytes/100 WBC (Bld) 24.7 % [facility] MCH (RBC) [Entitic mass] 29.7 pg 26.1 - 33.3 pg [facility] MCHC (RBC) [Mass/Vol] 33.3 g/dL 31.9 - 36.5 g/dL [facility] MCV (RBC) [Entitic vol] 89.2 fL 79.0 - 94.5 fL [facility] Monocytes (Bld) [#/Vol] 0.64 10*3/uL 0.24 - 0.93 K/uL [facility] Monocytes/100 WBC (Bld) 7.4 % [facility] Neutrophils (Bld) [#/Vol] 5.44 10*3/uL 1.57 - 6.19 K/uL [facility] Nucleated RBC/100 WBC (Bld) [Ratio] 0.0 % [facility] Platelet mean volume (Bld) [Entitic vol] 9.3 fL 8.7 - 12.3 fL [facility] Platelets (Bld) [#/Vol] 220 10*3/uL 146 - 337 K/uL [facility] RBC (Bld) [#/Vol] 4.65 10*6/uL [facility] Segmented neutrophils/100 WBC (Bld) 62.8 % [facility] WBC (Bld) [#/Vol] 8.66 10*3/uL 3.73 - 10. 10 K/uL [facility] CHEM 7 (LYTES,BUN,CREA,GLUC) on 01-06-2024 Anion gap [Moles/Vol] 14 mmol/L Normal 7-17 [facility] Comment on above: Performed By: #### C HM7 #### [facility] (DEFAULT) [address] [place] [address] Chloride [Moles/Vol] 105 mmol/L Normal 98-[address] [facility] Comment on above: Performed By: #### C HM7 #### [facility] (DEFAULT) [address] [place] [address] CO2 [Moles/Vol] 24 mmol/L Normal 21-31 [facility] Comment on above: Performed By: #### C HM7 #### [facility] (DEFAULT) [address] [address] Creatinine [Mass/Vol] 1.23 mg/dL Normal 0.70-1.30 [facility] Comment on above: Performed By: #### C HM7 #### [facility] (DEFAULT) [address] [address] GFR/1.73 sq M.predicted among non-blacks MDRD (S/P/Bld) [Vol rate/Area] 64 mL/min/{1.73_m2} Normal >=[address] [facility] Comment on above: Result Comment: Repo rted eGFR is based on the CKD-EPI 2020 equation using creatinine, age, and sex. Performed By: #### C HM7 #### [facility] (DEFAULT) [address] [address] Glucose [Mass/Vol] 128 mg/dL High 70-99 [facility] Comment on above: Performed By: #### C HM7 #### [facility] (DEFAULT) [address] [address] Osmolality [Osmolality] 296 mosm/kg Normal 278-[address] [facility] Comment on above: Performed By: #### C HM7 #### [facility] (DEFAULT) [address] [address] Potassium [Moles/Vol] 4.2 mmol/L Normal 3.5-5.0 [facility] Comment on above: Performed By: #### C HM7 #### [facility] (DEFAULT) [address] [address] Sodium [Moles/Vol] 139 mmol/L Normal 135-145 [facility] Comment on above: Performed By: #### C HM7 #### [facility] (DEFAULT) [address] [address] Urea nitrogen [Mass/Vol] 20 mg/dL Normal 7-[address] [facility] Comment on above: Performed By: #### C HM7 #### [facility] (DEFAULT) [address] [place] [address] Urea nitrogen/Creatinine [Mass ratio] 16 mg/mg Normal [facility] Comment on above: Performed By: #### C HM7 #### [facility] (DEFAULT) [address] [place] [address] Anion gap [Moles/Vol] 14 mmol/L 7 - 17 mmol/L [facility] Chloride [Moles/Vol] 105 mmol/L 98 - 10 8 mmol/L [facility] CO2 [Moles/Vol] 24 mmol/L 21 - 31 mmol/L [facility] Creatinine [Mass/Vol] 1.23 mg/dL 0.70 - 1.30 mg/dL [facility] eGFR, CKD-EPI, Male 64 - PINF [facility] Comment on above: Reported eGFR is bas ed on the CKD-EPI 2020 equation using creatinine, age, and sex. Glucose [Mass/Vol] 128 mg/dL High 70 - 99 mg/dL [facility] Interpretation and review of laboratory results Abnormal [facility] Osmolality Calc [Osmolality] 296 [facility] Potassium [Moles/Vol] 4.2 mmol/L 3.5 - 5.0 mmol/L [facility] Sodium [Moles/Vol] 139 mmol/L 135 - 145 mmol/L [facility] Urea nitrogen [Mass/Vol] 20 mg/dL 7 - 25 mg/dL [facility] Urea nitrogen/Creatinine [Mass ratio] 16 mg/mg [facility] PT,INR,PTTon 01-06-2024 aPTT Coag (Bld) [Time] 26.8 s Normal 24.0-34.[address] [facility] Comment on above: Performed By: #### P TPTT #### [facility] (DEFAULT) [address] [place] [address] INR Coag (PPP) [Relative time] 1.0 {INR} Normal 0.9-1.[address] [facility] Comment on above: Performed By: #### P TPTT #### [facility] (DEFAULT) [address] [place] [address] PT Coag (PPP) [Time] 12.6 s Normal 11.9-14.[address] [facility] Comment on above: Performed By: #### P TPTT #### [facility] (DEFAULT) [address] [place] [address] aPTT Coag (PPP) [Time] 26.8 s [facility] INR Coag (Bld) [Relative time] 1.0 {INR} 0.9 - 1.1 [facility] Interpretation and review of laboratory results Normal [facility] PT Coag (PPP) [Time] 12.6 s [facility] XR CHEST PA AND LATERAL 2 EWSon 01-06-2024 XR CHEST PA AND LATERAL 2 VIEWS EXAM: XR CHEST PA AND LATERAL 2 VIEWS, 01/06/2024 16:20 PM COMPARISON: July 02, 2005 CLINICAL INDICATIONS: Rule out Pneumothorax Following Device Implantation RELEVANT CLINICAL HISTORY: Please complete this Xray within 2-4 hours from the completion of the procedure. Please read as a stat read. Please page the on-call EP fellow at [phone] with any emergent finding such as pneumothorax.; FINDINGS: Limited by soft tissue attenuation. Implanted Devices: Left subclavian approach dual-chamber pacemaker with 2 leads terminating in the right atrium and a lead terminating in the right ventricle. Lungs: Clear, without mass, interstitial disease, or consolidation. Pleural Spaces: No pleural effusion. No pneumothorax. Mediastinum and [place]: Normal Cardiac silhouette and great vessels: Cardiomegaly. Unremarkable aorta. Chest Wall: Sternal wires are aligned and intact. IMPRESSION: Limited evaluation. No acute pulmonary finding. Cardiomegaly. Normal [facility] XR Chest PA and Lateralon EXAM: XR CHEST PA AN D LATERAL 2 VIEWS, 01/06/2024 16:20 PM COMPARISON: July 02, 2005 CLINICAL INDICATIONS: Rule out Pneumothorax Following Device Implantation RELEVANT CLINICAL HISTORY: Please complete this Xray within 2-4 hours from the completion of the procedure. Please read as a stat read. Please page the on-call EP fellow at [phone] with any emergent finding such as pneumothorax.; FINDINGS: Limited by soft tissue attenuation. Implanted Devices: Left subclavian approach dual-chamber pacemaker with 2 leads terminating in the right atrium and a lead terminating in the right ventricle. Lungs: Clear, without mass, interstitial disease, or consolidation. Pleural Spaces: No pleural effusion. No pneumothorax. Mediastinum and [place]: Normal Cardiac silhouette and great vessels: Cardiomegaly. Unremarkable aorta. Chest Wall: Sternal wires are aligned and intact. RADIOLOGY Renetta Burgos M D - 01/06/2024 EXAM: XR CHEST PA AND LATERAL 2 VIEWS, 01/06/2024 16:20 PM COMPARISON: July 02, 2005 CLINICAL INDICATIONS: Rule out Pneumothorax Following Device Implantation RELEVANT CLINICAL HISTORY: Please complete this Xray within 2-4 hours from the completion of the procedure. Please read as a stat read. Please page the on-call EP fellow at [phone] with any emergent finding such as pneumothorax.; FINDINGS: Limited by soft tissue attenuation. Implanted Devices: Left subclavian approach dual-chamber pacemaker with 2 leads terminating in the right atrium and a lead terminating in the right ventricle. Lungs: Clear, without mass, interstitial disease, or consolidation. Pleural Spaces: No pleural effusion. No pneumothorax. Mediastinum and [place]: Normal Cardiac silhouette and great vessels: Cardiomegaly. Unremarkable aorta. Chest Wall: Sternal wires are aligned and intact. IMPRESSION IMPRESSION: Limited evaluation. No acute pulmonary finding. Cardiomegaly. [facility] Radiology Study observation (narrative) [facility] XR Chest PA and LateralOrder ed By: Renetta Burgos on 01-06-2024 [facility] Work Phone: Basophil percentageOrdered B y: Speedy Boswell on 11-28-2023 Chloride [Moles/Vol] 109 mmol/L 98-107 [facility] Cholesterol [Mass/Vol] 96 mg/dL <200 [facility] Comment on above: <200 mg/dL Desirable 200-240 mg/dL Borderline >240 mg/dL High Risk Glucose [Mass/Vol] 125 mg/dL 74-106 [facility] Comment on above: Fasting Glucose resu lt from 100 to 125 mg/dL suggests IMPAIRED HOMEOSTASIS per A.D.A. criteria. Potassium [Moles/Vol] 4.1 mmol/L 3.5-5.1 [facility] Sodium [Moles/Vol] 141 mmol/L 136-145 [facility] Triglyceride [Mass/Vol] 91 mg/dL <199 [facility] Comment on above: The drugs N-Acetylcy steine and Metamizole may falsely depress this assay.Serum Triglycerides Reference Interval Normal <150 mg/dL Borderline high 150 - 199 mg/dL High 200 - 499 mg/dL Very High > or = 500 mg/dL Laboratory - Chemistry and C hemistry - challengeOrdered By: Speedy Boswell on 11-28-2023 CO2 [Moles/Vol] 26.0 mmol/L 21.0-32.0 [facility] Urea nitrogen/Creatinine [Mass ratio] 11.7 mg/mg 10-20 [facility] No Panel InformationOrdered By: Speedy Boswell on 11-28-2023 Estimated GFR (MDRD) Amer 72 mL/min >60 [facility] Comment on above: GFR Calc Estimated GFR (MDRD) Non-Af Amer 59 mL/min >60 [facility] Comment on above: Non- GFR Calc Serum or plasma calcium raul urement (mass/volume)Ordered By: Speedy Boswell on 11-28-2023 Calcium [Mass/Vol] 8.9 mg/dL 8.5-10.1 [facility] Serum or plasma cholesterol in HDL measurement (mass/volume)Ordered By: Speedy Boswell on 11-28-2023 Cholesterol in HDL [Mass/Vol] 32 mg/dL >40 [facility] Comment on above: The drugs N-Acetylcy steine and Metamizole may falsely depress this assay. Reference Range HDL <40 mg/dL Low HDL Cholesterol HDL >or= 60 mg/dL High HDL Cholesterol Serum or plasma cholesterol in VLDL measurement (mass/volume)Ordered By: Speedy Boswell on 11-28-2023 Cholesterol in VLDL [Mass/Vol] 18 mg/dL 5-40 [facility] Serum or plasma creatinine m easurement (mass/volume)Ordered By: Speedy Boswell on 11-28-2023 Creatinine [Mass/Vol] 1.28 mg/dL 0.70-1.30 [facility] Comment on above: The validity of the calculated GFR & GFRAA in patients over 70 years has not been determined. Clinical correlation is essential. Serum or plasma low density lipoprotein (LDL) cholesterol measurement (mass/volume)Ordered By: Speedy Boswell on 11-28-2023 Cholesterol in LDL [Mass/Vol] 46 mg/dL 0-130 [facility] Serum or plasma urea nitroge n measurement (mass/volume)Ordered By: Speedy Boswell on 11-28-2023 Urea nitrogen [Mass/Vol] 15 mg/dL 7-18 [facility] Thin prep Papanicolaou smear with manual screeningOrdered By: Speedy Boswell on 11-28-2023 Thin prep Papanicolaou smear with manual screening 6 5-15 [facility] EP PROCEDURE - EPS/ABLATION/ DEVICEon 11-22-2023 EP PROCEDURE - EPS/ABLATION/DEVICE Left arm venogram demonstrated the L axillary, brachiocephalic, inominate all patent to the SVC. Recommendations: Atrial lead replacement as planned. Table formatting from the original result was not included. Albin Issa EP Procedure - EPS/Ablation/Device Ordering Physician: DAVID RAMIREZ Order #: [id number] Study Date: 11/21/2023 Patient Information Name MRN Description Albin Issa [id number] 68 y.o. male Physicians Panel Physicians Referring Physician Case Authorizing Physician Justin Pittman MD (Primary) MD David López MD Procedures VENOGRAM Pre Procedure Diagnosis Venous (peripheral) insufficiency [I87.2] Post Procedure Diagnosis Venous (peripheral) insufficiency [I87.2] Indications Failure of pacemaker lead, initial encounter [T82.110A (ICD-10-CM)] Venous (peripheral) insufficiency [I87.2 (ICD-10-CM)] Conclusion Left arm venogram demonstrated the L axillary, brachiocephalic, inominate all patent to the SVC. Recommendations: Atrial lead replacement as planned. Consent The procedure was explained including the potential risks of infection, heart perforation, re-operation, and other risks pertinent to procedure. Informed consent and permission to proceed was given. Venogram A venogram was performed on the left subclavian. Injected with hand injection. Venogram performed via IV. Injected volume = 10 mL. A venogram was performed on the left subclavian. Injected with hand injection. Venogram performed via IV. Injected volume = 10 mL. Implants No implant documentation for this case. Measurements BSA: 2.39 m2 Complications Complications documented before study signed (11/22/2023 7:14 AM) No complications were associated with this study. Documented by Justin Pittman MD - 11/21/2023 3:09 PM Electrophysiology Lab Attending Physician Statement and Signature I personally preformed and/or personally supervised and was present for this entire procedure, including the review and interpretation of all electrophysiologic tracings acquired during the course of this study. The medications listed have been ordered by me, and have been administered under my direct supervision. Signed at 1509 EST ABN Associated with this Order There is no ABN associated with this order. Normal [facility] CHEM 7 (LYTES,BUN,CREA,GLUC) on 11-21-2023 Anion gap [Moles/Vol] 16 mmol/L Normal 7-17 [facility] Comment on above: Performed By: #### C HM7 #### [facility] (DEFAULT) [address] [place] [address] Chloride [Moles/Vol] 106 mmol/L Normal 98-[address] [facility] Comment on above: Performed By: #### C HM7 #### [facility] [address] [place] [address] CO2 [Moles/Vol] 20 mmol/L Low 21-31 [facility] Comment on above: Performed By: #### C HM7 #### [facility] (DEFAULT) [address] [place] [address] Creatinine [Mass/Vol] 1.39 mg/dL High 0.70-1.30 [facility] Comment on above: Performed By: #### C HM7 #### [facility] (DEFAULT) [address] [address] GFR/1.73 sq M.predicted among non-blacks MDRD (S/P/Bld) [Vol rate/Area] 55 mL/min/{1.73_m2} Low >=[address] [facility] Comment on above: Result Comment: Repo rted eGFR is based on the CKD-EPI 2020 equation using creatinine, age, and sex. Performed By: #### C HM7 #### [facility] (DEFAULT) [address] [address] Glucose [Mass/Vol] 103 mg/dL High 70-99 [facility] Comment on above: Performed By: #### C HM7 #### [facility] (DEFAULT) [address] [address] Osmolality [Osmolality] 292 mosm/kg Normal 278-[address] [facility] Comment on above: Performed By: #### C HM7 #### [facility] (DEFAULT) [address] [address] Potassium [Moles/Vol] 3.9 mmol/L Normal 3.5-5.0 [facility] Comment on above: Performed By: #### C HM7 #### [facility] (DEFAULT) [address] [address] Sodium [Moles/Vol] 138 mmol/L Normal 135-145 [facility] Comment on above: Performed By: #### C HM7 #### [facility] (DEFAULT) [address] [address] Urea nitrogen [Mass/Vol] 22 mg/dL Normal 7-[address] [facility] Comment on above: Performed By: #### C HM7 #### [facility] (DEFAULT) [address] [address] Urea nitrogen/Creatinine [Mass ratio] 16 mg/mg Normal [facility] Comment on above: Performed By: #### C 7 #### [facility] (DEFAULT) [address] [address] DEVICE EVALUATION (SCANNED)o n 11-21-2023 [facility] Radiology Study observation (narrative) [facility] Office Visiton 08-26-2023 Follow-up visit [id number] Albin Issa 1955 M Date Provider Department Center 08/26/2023 [id number] NIELSEN [facility] None Family History Problem Relation Age of Onset Heart attack Mother Cancer Father Comments: liver Family Status - Relation Status Age at Mother Father Daughter Alive Level of Service:84194 [place] OFFICE/OUTPT VISIT,PROCEDURE ONLY Reason for Visit and Comments: Follow-up [021898] - USG left subtalar joint injection Normal [facility] PATINSon 08-26-2023 [facility] Orthopaedics and Sports Medicine Patient Care Instructions [...] the office as soon as possible at [phone] [facility] Progress Noteon 08-26-2023 Progress Note [facility] ORTHOPEDICS AND SPORTS MEDICINE [address] [facility] [address] Dept: [phone] Dept Chief Complaint Patient presents with Follow-up [...] prior to signing but minor errors in workgroup leader may have occurred. [facility] 36on 08-12-2023 36 Patient was called with a VM left to call our office back to schedule injection. Scheduling Information: Saturday or in [place] Saturday afternoon only 1st available- 30 min appt [facility] 36 Name of Caller: Mauro Contact Reason for Appointment: Pt would like to get another USG left subtalar joint If he does not answer please leave a voicemail. Please advise. Office Name: [facility] Absolute lymphocyte countOrd ered By: ED PROVIDER on 10-27-2022 Lymphocytes Auto (Unsp spec) [#/Vol] 0.99 10*3/uL 0.83-4.51 [facility] Basophil percentageOrdered B y: ED PROVIDER on 10-27-2022 Basophils/100 WBC (Bld) 0.5 % 0-1 [facility] Chloride [Moles/Vol] 106 mmol/L 98-107 [facility] Eosinophils/100 WBC (Bld) 3.5 % 0-5 [facility] Glucose [Mass/Vol] 103 mg/dL 74-106 [facility] Comment on above: Fasting Glucose resu lt from 100 to 125 mg/dL suggests IMPAIRED HOMEOSTASIS per A.D.A. criteria. Neutrophils (Bld) [#/Vol] 3.7 10*3/uL 2.0-7.7 [facility] Neutrophils/100 WBC (Bld) 65.1 % 47-70 [facility] Potassium [Moles/Vol] 4.0 mmol/L 3.5-5.1 [facility] Comment on above: Slight Hemolysis, Re sult may be falsely increased. Sodium [Moles/Vol] 138 mmol/L 136-145 [facility] WBC (Bld) [#/Vol] 5.7 10*3/uL 4.4-11.0 [facility] Blood erythrocytes count (nu mber/volume)Ordered By: ED PROVIDER on 10-27-2022 RBC (Bld) [#/Vol] 4.65 10*6/uL 4.6-6.2 [facility] Blood hemoglobin measurement (mass/volume)Ordered By: ED PROVIDER on 10-27-2022 Hemoglobin (Bld) [Mass/Vol] 14.7 g/dL 13.0-16.5 [facility] Blood lymphocytes/100 leukoc ytesOrdered By: ED PROVIDER on 10-27-2022 Lymphocytes/100 WBC (Bld) 17.4 % 19-41 [facility] Blood monocytes/100 leukocyt esOrdered By: ED PROVIDER on 10-27-2022 Monocytes/100 WBC (Bld) 13.0 % 0-10 [facility] Blood platelet mean volumeOr dered By: ED PROVIDER on 10-27-2022 Platelet mean volume (Bld) [Entitic vol] 9.8 fL 6.2-12.0 [facility] COVID-19 virus antigen assay Ordered By: ED PROVIDER on 10-27-2022 SARS-CoV-2 (COVID-19) Ag IA.rapid Ql (Resp) [facility] Determination of erythrocyte mean corpuscular volume (MCV)Ordered By: ED PROVIDER on 10-27-2022 MCV (RBC) [Entitic vol] 91.6 fL 80-94 [facility] Hematocrit Auto (Bld) [Volum e fraction]Ordered By: ED PROVIDER on 10-27-2022 Hematocrit (Bld) [Volume fraction] 42.6 % 40-54 [facility] Laboratory - Chemistry and C hemistry - challengeOrdered By: ED PROVIDER on 10-27-2022 CO2 [Moles/Vol] 27.0 mmol/L 21.0-32.0 [facility] Urea nitrogen/Creatinine [Mass ratio] 11.9 mg/mg 10-20 [facility] Laboratory - Hematology and Cell countsOrdered By: ED PROVIDER on 10-27-2022 Erythrocyte distribution width (RBC) [Entitic vol] 45.2 fL 35.1-43.9 [facility] Erythrocyte distribution width (RBC) [Ratio] 13.4 % 11.6-14.6 [facility] Immature granulocytes/100 WBC (Bld) 0.500 % 0.0-0.9 [facility] Comment on above: IG% - Immature Granu locytes (promyelocytes, myelocytes and metamyelocytes) > 1% indicates that a LEFT SHIFT is Present. MCH (RBC) [Entitic mass] 31.6 pg 27.0-32.0 [facility] Nucleated RBC/100 WBC (Bld) [Ratio] 0 % [facility] [Mass/Vol]Or dered By: ED PROVIDER on 10-27-2022 MCHC (RBC) [Mass/Vol] 34.5 g/dL 32-36 [facility] No Panel InformationOrdered By: ED PROVIDER on 10-27-2022 Estimated Creatinine Clearance Calc 51.75 ml/min [facility] Estimated GFR (MDRD) Amer 68 mL/min >60 [facility] Comment on above: GFR Calc Estimated GFR (MDRD) Non-Af Amer 56 mL/min >60 [facility] Comment on above: Non- GFR Calc Platelets bldOrdered By: ED PROVIDER on 10-27-2022 Platelets (Bld) [#/Vol] 159 10*3/uL 150-450 [facility] Serum or plasma calcium raul urement (mass/volume)Ordered By: ED PROVIDER on 10-27-2022 Calcium [Mass/Vol] 9.8 mg/dL 8.5-10.1 [facility] Serum or plasma creatinine m easurement (mass/volume)Ordered By: ED PROVIDER on 10-27-2022 Creatinine [Mass/Vol] 1.34 mg/dL 0.70-1.30 [facility] Comment on above: The validity of the calculated GFR & GFRAA in patients over 70 years has not been determined. Clinical correlation is essential. Serum or plasma urea nitroge n measurement (mass/volume)Ordered By: ED PROVIDER on 10-27-2022 Urea nitrogen [Mass/Vol] 16 mg/dL 7-18 [facility] Thin prep Papanicolaou smear with manual screeningOrdered By: ED PROVIDER on 10-27-2022 Thin prep Papanicolaou smear with manual screening 5 5-15 [facility] No Panel Informationon 06-20 Prostate Specific Antigen Screen 0.41 ng/mL 0.00-4.00 [facility] Work Phone: Comment on above: This test was perfor med using the TPSA assay method for theFanaticallCloudike chemistry system. Values obtained with differentassay methods cannot be used interchangably.When changing PSA assays in the course of monitoring apatient, additional sequential testing should be carriedout to confirm baseline values. Basophil percentageon 2021 Bilirubin [Mass/Vol] 0.40 mg/dL 0.20-1.00 [facility] Work Phone: Comment on above: For patients on eltr ombopag therapy, use of Dimension [place] TBIL is not recommended. Cholesterol [Mass/Vol] 115 mg/dL <200 [facility] Work Phone: Comment on above: <200 mg/dL Desirable 200-240 mg/dL Borderline >240 mg/dL High Risk Protein [Mass/Vol] 7.7 g/dL 6.4-8.2 [facility] Work Phone: Triglyceride [Mass/Vol] 117 mg/dL <199 [facility] Work Phone: Comment on above: The drugs N-Acetylcy steine and Metamizole may falsely depress this assay.Serum Triglycerides Reference Interval Normal <150 mg/dL Borderline high 150 - 199 mg/dL High 200 - 499 mg/dL Very High > or = 500 mg/dL Direct bilirubinon 2 Bilirubin.direct [Mass/Vol] 0.13 mg/dL 0.00-0.30 [facility] Work Phone: Laboratory - Chemistry and C hemistry - challengeon 05-10-2022 ALP [Catalytic activity/Vol] 138 U/L 45-117 [facility] Work Phone: ALT [Catalytic activity/Vol] 37 U/L 16-61 [facility] Work Phone: Globulin (S) [Mass/Vol] 3.8 g/dL 2.2-4.2 [facility] Work Phone: Serum or plasma albumin raul urement (mass/volume)on 05-10-2022 Albumin [Mass/Vol] 3.9 g/dL 3.2-5.0 [facility] Work Phone: Serum or plasma cholesterol in HDL measurement (mass/volume)on 05-10-2022 Cholesterol in HDL [Mass/Vol] 30 mg/dL >40 [facility] Work Phone: Comment on above: The drugs N-Acetylcy steine and Metamizole may falsely depress this assay. Reference Range HDL <40 mg/dL Low HDL Cholesterol HDL >or= 60 mg/dL High HDL Cholesterol Serum or plasma cholesterol in VLDL measurement (mass/volume)on 05-10-2022 Cholesterol in VLDL [Mass/Vol] 23 mg/dL 5-40 [facility] Work Phone: Serum or plasma low density lipoprotein (LDL) cholesterol measurement (mass/volume)on 05-10-2022 Cholesterol in LDL [Mass/Vol] 62 mg/dL 0-130 [facility] Work Phone: Thin prep Papanicolaou smear with manual screeningon 05-10-2022 Thin prep Papanicolaou smear with manual screening 20 U/L 15-37 [facility] Work Phone: [id number] 03-07-2022 Vitamin B6 Lvl 14.0 nmol/L Low 20.0-125.0 [facility] Comment on above: Result Comment: INTE RPRETIVE INFORMATION: Vitamin B6 (Pyridoxal 5-Phosphate) Pyridoxal 5'-phosphate measured in a specimen collected following an 8-hour or overnight fast accurately indicates vitamin B6 nutritional status. Non-fasting specimen concentration reflects recent vitamin intake. This test was developed and its performance characteristics determined by [facility]. It has not been cleared or approved by the [place] Food and Drug Administration. This test was performed in a CLIA certified laboratory and is intended for clinical purposes. Performed By: [facility] [address] [place] [address] Etl Consultant: Leyda Carr MD Performed By: #### A 1C, TSH, FT4, ENA1, COPPER, MMA, VITB6 #### Pallavi W[address] [place], [place] [address] #### FOL, B12, IFES, SPE #### [address] [address] IFESon 03-05-2022 IFES Interpretation Immunofixation electrophoresis of serum shows the presence of only polyclonal immunoglobulins (IgG,A,M,[place] and Lambda), No monoclonal protein detected. Normal [facility] Comment on above: Result Comment: Elec tronically Signed by: PANKAJ QUIROZ 03/05/2022 08:24 EDT Performed By: #### A 1C, TSH, FT4, ENA1, COPPER, MMA, VITB6 #### [address] [address] #### FOL, B12, IFES, SPE #### [place] [address] SPEon 03-05-2022 SPE Interpretation Normal serum protein electrophoresis pattern. No abnormality detected. Normal [facility] Comment on above: Result Comment: Elec tronically Signed by: PANKAJ QUIROZ 03/05/2022 08:24 EDT Performed By: #### A 1C, TSH, FT4, ENA1, COPPER, MMA, VITB6 #### [address] [address] #### FOL, B12, IFES, SPE #### [place] [id number] [facility] 03-01-2022 Methylmalonic Acid 172 nmol/L Normal 79-376 [facility] ([place]) Comment on above: Result Comment: This test was developed and its performance characteristics determined by [facility] Path[facility] and Laboratory Medicine [place] ([facility] It has not been cleared or approved by the FDA. [facility] is regulated under CLIA as qualified to perform high-complexity testing. This test is used for clinical purposes. It should not be regarded as investigational or for research. Performed By: [facility] [address] [place] [address] Lab Technician: Hung Arevalo III, M.D. CLIA#: [id number] Performed By: #### A 1C, TSH, FT4, ENA1, COPPER, MMA, VITB6 #### [address] [address] #### FOL, B12, IFES, SPE #### [place] [id number] SPEon 03-01-2022 Albumin 3.7 G/dL Normal 3.3-5.0 [facility] Comment on above: Performed By: #### A 1C, TSH, FT4, ENA1, COPPER, MMA, VITB6 #### [place] [address] #### FOL, B12, IFES, SPE #### [place] [address] Alpha 1 0.2 G/dL Normal 0.1-0.4 [facility] Comment on above: Performed By: #### A 1C, TSH, FT4, ENA1, COPPER, MMA, VITB6 #### [place] [address] #### FOL, B12, IFES, SPE #### [place] [address] Alpha 2 0.9 G/dL Normal 0.6-1.2 [facility] Comment on above: Performed By: #### A 1C, TSH, FT4, ENA1, COPPER, MMA, VITB6 #### [place] [address] #### FOL, B12, IFES, SPE #### [place] [address] Beta 1.0 G/dL Normal 0.6-1.3 [facility] Comment on above: Performed By: #### A 1C, TSH, FT4, ENA1, COPPER, MMA, VITB6 #### [place] [address] #### FOL, B12, IFES, SPE #### [place] [address] Gamma 1.1 G/dL Normal 0.7-1.6 [facility] Comment on above: Performed By: #### A 1C, TSH, FT4, ENA1, COPPER, MMA, VITB6 #### [place] [address] #### FOL, B12, IFES, SPE #### [address] [address] CUSon 02-28-2022 Copper (s) 107 UG/DL Normal 70-140 [facility] Comment on above: Result Comment: This test was developed and its performance characteristics determined by [facility] Pathology and Laboratory [facility] [place] ([facility]). It has not been cleared or approved by the FDA. [facility] is regulated under CLIA as qualified to perform high-complexity testing. This test is used for clinical purposes. It should not be regarded as investigational or for research. Performed By: [place] [address] Lab Technician: Hung Arevalo III, M.D. CLIA#: [id number] Performed By: #### A 1C, TSH, FT4, ENA1, COPPER, MMA, VITB6 #### [address] [address] #### FOL, B12, IFES, SPE #### [place] [id number] ENA1on 02-28-2022 Centromere <0.2 Normal <1.0 [facility] Comment on above: Result Comment: Anti -centromere antibody is used as in aid in diagnosis of systemic sclerosis. Clinical correlation is required. Test Methodology: Multiplex flow immunoassay. Performed By: [place] [address] Lab Technician: Hung Arevalo III, M.D. CLIA#: [id number] Performed By: #### A 1C, TSH, FT4, ENA1, COPPER, MMA, VITB6 #### [address] [address] #### FOL, B12, IFES, SPE #### [address] [address] Centromere Ab Qualitative Negative Normal Negative [facility] Comment on above: Result Comment: Perf ormed By: [email or web address] [address] [place] [address] Lab Technician: Hung Arevalo III, M.D. CLIA#: [id number] Performed By: #### A 1C, TSH, FT4, ENA1, COPPER, MMA, VITB6 #### [place] [address] #### FOL, B12, IFES, SPE #### [address] [address] Chromatin Ab Qualitative Negative Normal Negative [facility] [place] Comment on above: Result Comment: Perf ormed By: [place] [address] Lab Technician: Hung Arevalo III, M.D. CLIA#: [id number] Performed By: #### A 1C, TSH, FT4, ENA1, COPPER, MMA, VITB6 #### [place] [address] #### FOL, B12, IFES, SPE #### [place] [address] Chromatin Antibody <0.2 Normal <1.0 [facility] ([place] Comment on above: Result Comment: Test Methodology: Multiplex flow immunoassay. Anti-chromatin antibody is used as an aid in diagnosis of systemic lupus erythematosus. Clinical correlation is required. Test Methodology: Multiplex flow immunoassay. Performed By: [place] [address] Lab Technician: Hung Arevalo III, M.D. CLIA#: [id number] Performed By: #### A 1C, TSH, FT4, ENA1, COPPER, MMA, VITB6 #### [place] [address] #### FOL, B12, IFES, SPE #### [place] [id number] HAILE 1 Antibody <0.2 Normal <1.0 [facility] [place] Comment on above: Result Comment: Perf ormed By: [place] [address] Lab Technician: Hung Arevalo III, M.D. CLIA#: [id number] Performed By: #### A 1C, TSH, FT4, ENA1, COPPER, MMA, VITB6 #### [address] [address] #### FOL, B12, IFES, SPE #### [address] [address] HAILE 1 Antibody Qual Negative Normal Negative [facility] ([place] Comment on above: Result Comment: Anti -HAILE-1 antibody is used as an aid in diagnosis of polymyositis and dermatomyositis especially with pulmonary involvement. A negative result cannot rule out polymyositis or dermatomyositis. Clinical correlation is required. Test Methodology: Multiplex flow immunoassay. Performed By: [email or web address] [address] [place] [address] Lab Technician: Hung Arevalo III, M.D. CLIA#: [id number] Performed By: #### A 1C, TSH, FT4, ENA1, COPPER, MMA, VITB6 #### [place] [address] #### FOL, B12, IFES, SPE #### [address] [address] Ribosomal SILO WORKER <0.2 Normal <1.0 [facility] [place] Comment on above: Result Comment: Perf ormed By: [email or web address] [address] [place] [address] Lab Technician: Hung Arevalo III, M.D. CLIA#: [id number] Performed By: #### A 1C, TSH, FT4, ENA1, COPPER, MMA, VITB6 #### [place] [address] #### FOL, B12, IFES, SPE #### [address] [address] Ribosomal SILO WORKER Qualitative Negative Normal Negative [facility] ([place] Comment on above: Result Comment: Anti -Ribosomal RNA (Ribosomal P) antibody is used as an aid in diagnosis of systemic autoimmune diseases especially systemic lupus erythematosus and mixed connective tissue disease. Cross-reactivity with Anti-gonzales antibody is not uncommon. Clinical correlation is required. Test Methodology: Multiplex flow immunoassay. Performed By: [email or web address] [address] [place], [place] [id number] Lab Technician: Hung Arevalo III, M.D. CLIA#: [id number] Performed By: #### A 1C, TSH, FT4, ENA1, COPPER, MMA, VITB6 #### [address] [address] #### FOL, B12, IFES, SPE #### [address] [address] SILO WORKER Antibody 0.3 AI Normal <1.0 [facility] ([place] Comment on above: Result Comment: Anti -SILO WORKER antibody is used as an aid in diagnosis of systemic autoimmune diseases especially systemic lupus erythematosus and mixed connective tissue disease. Cross-reactivity with Anti-gonzales antibody is not uncommon. Clinical correlation is required. Test Methodology: Multiplex flow immunoassay. Performed By: [place] [address] Lab Technician: Hung Arevalo III, M.D. CLIA#: [id number] Performed By: #### A 1C, TSH, FT4, ENA1, COPPER, MMA, VITB6 #### [place] [address] #### FOL, B12, IFES, SPE #### [address] [address] SILO WORKER Antibody Qualitative Negative Normal Negative [facility] [place] Comment on above: Result Comment: Perf ormed By: [place] [address] Lab Technician: Hung Arevalo III, M.D. CLIA#: [id number] Performed By: #### A 1C, TSH, FT4, ENA1, COPPER, MMA, VITB6 #### [place] [address] #### FOL, B12, IFES, SPE #### [address] [address] Scleroderma Ab, IgG Qualitative Negative Normal Negative [facility] [place] Comment on above: Result Comment: Perf ormed By: [place] [address] Lab Technician: Hung Arevalo III, M.D. CLIA#: [id number] Performed By: #### A 1C, TSH, FT4, ENA1, COPPER, MMA, VITB6 #### [place] [address] #### FOL, B12, IFES, SPE #### [address] [address] Scleroderma IgG Ab <0.2 Normal <1.0 [facility] ([place] Comment on above: Result Comment: Scl- 70/Scleroderma antibody test is used as an aid in diagnosis of systemic sclerosis especially the diffuse cutaneous form. A negative result cannot rule out systemic sclerosis. The final interpretation should consider clinical picture and other test results such as anti-centromere antibody. Test Methodology: Multiplex flow immunoassay. Performed By: [place] [address] Lab Technician: Hung Arevalo III, M.D. CLIA#: [id number] Performed By: #### A 1C, TSH, FT4, ENA1, COPPER, MMA, VITB6 #### [place] [address] #### FOL, B12, IFES, SPE #### [address] [address] Sm Antibody <0.2 Normal <1.0 [facility] ([place] Comment on above: Result Comment: Perf ormed By: [place] [address] Lab Technician: Hung Arevalo III, M.D. CLIA#: [id number] Performed By: #### A 1C, TSH, FT4, ENA1, COPPER, MMA, VITB6 #### [place] [address] #### FOL, B12, IFES, SPE #### [address] [address] Sm Antibody Qual Negative Normal Negative [facility] ([place]) Comment on above: Result Comment: Anti -Sm (Gonzales) antibody is used as an aid in diagnosis of systemic lupus erythematosus and its presence is associated with renal disease. A negative result cannot rule out systemic lupus erythematosus. Clinical correlation is required. Test Methodology: Multiplex flow immunoassay. Performed By: [place] [address] Lab Technician: Hung Arevalo III, M.D. CLIA#: [id number] Performed By: #### A 1C, TSH, FT4, ENA1, COPPER, MMA, VITB6 #### [place] [address] #### FOL, B12, IFES, SPE #### [address] [address] SS-A Antibody <0.2 Normal <1.0 [facility] ([place]) Comment on above: Result Comment: Test Methodology: Multiplex flow immunoassay. Anti-SSA (anti-Ro) antibody is used as an aid in diagnosis of a variety of systemic autoimmune diseases, Sjogren's syndrome among others. Clinical correlation is required. Test Methodology: Multiplex flow immunoassay. Performed By: [place] [address] Lab Technician: Hung Arevalo III, M.D. CLIA#: [id number] Performed By: #### A 1C, TSH, FT4, ENA1, COPPER, MMA, VITB6 #### [place] [address] #### FOL, B12, IFES, SPE #### [address] [address] SS-B Antibody <0.2 Normal <1.0 [facility] ([place]) Comment on above: Result Comment: Anti -SSB (anti-La) antibody is used as an aid in diagnosis of a variety of systemic autoimmune diseases, especially for Sjogren's syndrome and systemic lupus erythematosus. Clinical correlation is required. Test Methodology: Multiplex flow immunoassay. Performed By: [email or web address] [address] [place] [address] Lab Technician: Hung Arevalo III, M.D. CLIA#: [id number] Performed By: #### A 1C, TSH, FT4, ENA1, COPPER, MMA, VITB6 #### [place] [address] #### FOL, B12, IFES, SPE #### [address] [address] SSA Antibody Qualitative Negative Normal Negative [facility] [place] Comment on above: Result Comment: Perf ormed By: [place] [id number] Lab Technician: Hung Arevalo III, M.D. CLIA#: [id number] Performed By: #### A 1C, TSH, FT4, ENA1, COPPER, MMA, VITB6 #### [address] [address] #### FOL, B12, IFES, SPE #### [place] [address] SSB Antibody Qualitative Negative Normal Negative [facility] [place] Comment on above: Result Comment: Perf ormed By: [place] [id number] Lab Technician: Hung Arevalo III, M.D. CLIA#: [id number] Performed By: #### A 1C, TSH, FT4, ENA1, COPPER, MMA, VITB6 #### [address] [address] #### FOL, B12, IFES, SPE #### [place] [address] A1Con 02-27-2022 HbA1c (Bld) [Mass fraction] 5.8 % Normal 4.3-6.4 [facility] [place] Comment on above: Performed By: #### A 1C, TSH, FT4, ENA1, COPPER, MMA, VITB6 #### [address] [address] #### FOL, B12, IFES, SPE #### [place] [address] B12on 02-27-2022 Cobalamin (Vitamin B12) [Mass/Vol] 536 pg/mL Normal 211-911 [facility] ([place] Comment on above: Performed By: #### A 1C, TSH, FT4, ENA1, COPPER, MMA, VITB6 #### [address] [address] #### FOL, B12, IFES, SPE #### [place] [address] FOLon 02-27-2022 Folate 11.66 ng/mL Normal 5.38-24.00 [facility] ([place] Comment on above: Performed By: #### A 1C, TSH, FT4, ENA1, COPPER, MMA, VITB6 #### [place] [address] #### FOL, B12, IFES, SPE #### [place] [address] FT4on 02-27-2022 Free T4 [Mass/Vol] 0.88 ng/dL Normal 0.76-1.46 [facility] ([place] Comment on above: Performed By: #### A 1C, TSH, FT4, ENA1, COPPER, MMA, VITB6 #### [place] [address] #### FOL, B12, IFES, SPE #### [address] 02-27-2022 Total Protein 6.9 G/dL Normal 5.7-8.2 [facility] ([place] Comment on above: Result Comment: No te - New Reference Range in effect 20 Performed By: #### A 1C, TSH, FT4, ENA1, COPPER, MMA, VITB6 #### [address] [address] #### FOL, B12, IFES, SPE #### [place] [address] TSHon 02-27-2022 TSH Qn 2.20 m[IU]/L Normal 0.36-3.74 [facility] ([place] Comment on above: Performed By: #### A 1C, TSH, FT4, ENA1, COPPER, MMA, VITB6 #### [place] [id number] #### FOL, B12, IFES, SPE #### [facility] [address] [place] [address] Absolute lymphocyte counton 02-07-2022 Lymphocytes Auto (Unsp spec) [#/Vol] 1.49 10*3/uL 0.83-4.51 [facility] Work Phone: Basophil percentageon 2021 Basophils/100 WBC (Bld) 0.7 % 0-1 [facility] Work Phone: [phone] Chloride [Moles/Vol] 108 mmol/L 98-107 [facility] Work Phone: [phone] Eosinophils/100 WBC (Bld) 2.7 % 0-5 [facility] Work Phone: [phone] Glucose [Mass/Vol] 125 mg/dL 74-106 [facility] Work Phone: [phone] Comment on above: Fasting Glucose resu lt from 100 to 125 mg/dL suggests IMPAIRED HOMEOSTASIS per A.D.A. criteria. Neutrophils (Bld) [#/Vol] 3.5 10*3/uL 2.0-7.7 [facility] Work Phone: [phone] Neutrophils/100 WBC (Bld) 62.5 % 47-70 [facility] Work Phone: [phone] Potassium [Moles/Vol] 4.0 mmol/L 3.5-5.1 [facility] Work Phone: [phone] Comment on above: Slight Hemolysis, Re sult may be falsely increased. Sodium [Moles/Vol] 139 mmol/L 136-145 [facility] Work Phone: [phone] WBC (Bld) [#/Vol] 5.6 10*3/uL 4.4-11.0 [facility] Work Phone: [phone] Blood erythrocytes count (nu mber/volume)on 02-07-2022 RBC (Bld) [#/Vol] 5.16 10*6/uL 4.6-6.2 [facility] Work Phone: [phone] Blood hemoglobin measurement (mass/volume)on 02-07-2022 Hemoglobin (Bld) [Mass/Vol] 16.1 g/dL 13.0-16.5 [facility] Work Phone: Blood lymphocytes/100 leukoc yteson 02-07-2022 Lymphocytes/100 WBC (Bld) 26.7 % 19-41 [facility] Work Phone: Blood monocytes/100 leukocyt eson 02-07-2022 Monocytes/100 WBC (Bld) 7.2 % 0-10 [facility] Work Phone: Blood platelet mean volumeon 02-07-2022 Platelet mean volume (Bld) [Entitic vol] 9.7 fL 6.2-12.0 [facility] Work Phone: Determination of erythrocyte mean corpuscular volume (MCV)on 02-07-2022 MCV (RBC) [Entitic vol] 89.5 fL 80-94 [facility] Work Phone: Hematocrit Auto (Bld) [Volum e fraction]on 02-07-2022 Hematocrit (Bld) [Volume fraction] 46.2 % 40-54 [facility] Work Phone: Laboratory - Chemistry and C hemistry - challengeon 02-07-2022 CO2 [Moles/Vol] 24.0 mmol/L 21.0-32.0 [facility] Work Phone: Urea nitrogen/Creatinine [Mass ratio] 10.5 mg/mg 10-20 [facility] Work Phone: Laboratory - Hematology and Cell countson 02-07-2022 Erythrocyte distribution width (RBC) [Entitic vol] 41.1 fL 35.1-43.9 [facility] Work Phone: Erythrocyte distribution width (RBC) [Ratio] 12.5 % 11.6-14.6 [facility] Work Phone: Immature granulocytes/100 WBC (Bld) 0.200 % 0.0-0.9 [facility] Work Phone: Comment on above: IG% - Immature Granu locytes (promyelocytes, myelocytes and metamyelocytes) > 1% indicates that a LEFT SHIFT is Present. MCH (RBC) [Entitic mass] 31.2 pg 27.0-32.0 [facility] Work Phone: Nucleated RBC/100 WBC (Bld) [Ratio] 0 % 0-5 [facility] Work Phone: MCHC Auto (RBC) [Mass/Vol]on 02-07-2022 MCHC (RBC) [Mass/Vol] 34.8 g/dL 32-36 [facility] Work Phone: No Panel Informationon 02-07 Estimated GFR (MDRD) Amer 75 mL/min >60 [facility] Work Phone: Comment on above: GFR Calc Estimated GFR (MDRD) Non-Af Amer 62 mL/min >60 [facility] Work Phone: Comment on above: Non- GFR Calc Platelets bldon 02-07-2022 Platelets (Bld) [#/Vol] 225 10*3/uL 150-450 [facility] Work Phone: Serum or plasma calcium raul urement (mass/volume)on 02-07-2022 Calcium [Mass/Vol] 9.6 mg/dL 8.5-10.1 [facility] Work Phone: Serum or plasma creatinine m easurement (mass/volume)on 02-07-2022 Creatinine [Mass/Vol] 1.24 mg/dL 0.70-1.30 [facility] Work Phone: Comment on above: The validity of the calculated GFR & GFRAA in patients over 70 years has not been determined. Clinical correlation is essential. Serum or plasma urea nitroge n measurement (mass/volume)on 02-07-2022 Urea nitrogen [Mass/Vol] 13 mg/dL 7-18 [facility] Work Phone: Thin prep Papanicolaou smear with manual screeningon 02-07-2022 Thin prep Papanicolaou smear with manual screening 7 5-15 [facility] Work Phone: Basophil percentageon 2021 Chloride [Moles/Vol] 111 mmol/L 98-[address] [facility] [address] [facility] Work Phone: Cholesterol [Mass/Vol] 150 mg/dL <[facility] Work Phone: Comment on above: <200 mg/dL Desirable 200-240 mg/dL Borderline >240 mg/dL High Risk Glucose [Mass/Vol] 96 mg/dL 74-106 [facility] Work Phone: Potassium [Moles/Vol] 4.0 mmol/L 3.5-5.1 [facility] Work Phone: Sodium [Moles/Vol] 141 mmol/L 136-145 [facility] Work Phone: Triglyceride [Mass/Vol] 140 mg/dL [facility] Work Phone: Comment on above: The drugs N-Acetylcy steine and Metamizole may falsely depress this assay.Serum Triglycerides Reference Interval Normal <150 mg/dL Borderline high 150 - 199 mg/dL High 200 - 499 mg/dL Very High > or = 500 mg/dL Laboratory - Chemistry and C hemistry - challengeon 01-24-2022 CO2 [Moles/Vol] 24.0 mmol/L 21.0-32.0 [facility] Work Phone: Urea nitrogen/Creatinine [Mass ratio] 10.3 mg/mg 10-20 [facility] Work Phone: No Panel Informationon 01-24 Estimated GFR (MDRD) Amer 74 mL/min >60 [facility] Work Phone: Comment on above: GFR Calc Estimated GFR (MDRD) Non-Af Amer 61 mL/min >60 [facility] Work Phone: Comment on above: Non- GFR Calc Serum or plasma calcium raul urement (mass/volume)on 01-24-2022 Calcium [Mass/Vol] 10.0 mg/dL 8.5-10.1 [facility] Work Phone: Serum or plasma cholesterol in HDL measurement (mass/volume)on 01-24-2022 Cholesterol in HDL [Mass/Vol] 30 mg/dL [facility] Work Phone: Comment on above: The drugs N-Acetylcy steine and Metamizole may falsely depress this assay. Reference Range HDL <40 mg/dL Low HDL Cholesterol HDL >or= 60 mg/dL High HDL Cholesterol Serum or plasma cholesterol in VLDL measurement (mass/volume)on 01-24-2022 Cholesterol in VLDL [Mass/Vol] 28 mg/dL 5-40 [facility] Work Phone: Serum or plasma creatinine m easurement (mass/volume)on 01-24-2022 Creatinine [Mass/Vol] 1.26 mg/dL 0.70-1.30 [facility] Work Phone: Comment on above: The validity of the calculated GFR & GFRAA in patients over 70 years has not been determined. Clinical correlation is essential. Serum or plasma low density lipoprotein (LDL) cholesterol measurement (mass/volume)on 01-24-2022 Cholesterol in LDL [Mass/Vol] 92 mg/dL 0-130 [facility] Work Phone: Serum or plasma urea nitroge n measurement (mass/volume)on 01-24-2022 Urea nitrogen [Mass/Vol] 13 mg/dL 7-18 [facility] Work Phone: Thin prep Papanicolaou smear with manual screeningon 01-24-2022 Thin prep Papanicolaou smear with manual screening 6 5-15 [facility] Work Phone: Absolute lymphocyte counton 01-15-2022 Lymphocytes Auto (Unsp spec) [#/Vol] 1.95 10*3/uL 0.83-4.51 [facility] Work Phone: Basophil percentageon 2021 Basophils/100 WBC (Bld) 0.6 % 0-1 [facility] Work Phone: Chloride [Moles/Vol] 110 mmol/L 98-107 [facility]: Eosinophils/100 WBC (Bld) 3.4 % 0-5 [facility] Work Phone: Glucose [Mass/Vol] 106 mg/dL 74-106 [facility] Work Phone: Comment on above: Fasting Glucose resu lt from 100 to 125 mg/dL suggests IMPAIRED HOMEOSTASIS per A.D.A. criteria. Neutrophils (Bld) [#/Vol] 5.1 10*3/uL 2.0-7.7 [facility] Work Phone: Neutrophils/100 WBC (Bld) 62.1 % 47-70 [facility] Work Phone: Potassium [Moles/Vol] 3.7 mmol/L 3.5-5.1 [facility] Work Phone: Sodium [Moles/Vol] 139 mmol/L 136-145 [facility] Work Phone: WBC (Bld) [#/Vol] 8.1 10*3/uL 4.4-11.0 [facility] Work Phone: Basophil percentage 5-10 SEEN /hpf W [facility] Work Phone: Bilirubin Test strip Ql (U)o n 01-15-2022 Bilirubin Ql (U) Negative Negative [facility] Work Phone: Blood erythrocytes count (nu mber/volume)on 01-15-2022 RBC (Bld) [#/Vol] 4.96 10*6/uL 4.6-6.2 [facility] Work Phone: Blood hemoglobin measurement (mass/volume)on 01-15-2022 Hemoglobin (Bld) [Mass/Vol] 14.8 g/dL 13.0-16.5 [facility] Work Phone: [phone] Blood lymphocytes/100 leukoc yteson 02-14-2022 Lymphocytes/100 WBC (Bld) 24.0 % 19-41 [facility] Work Phone: Blood monocytes/100 leukocyt eson 01-15-2022 Monocytes/100 WBC (Bld) 9.0 % 0-10 [facility] Work Phone: Blood platelet mean volumeon 01-15-2022 Platelet mean volume (Bld) [Entitic vol] 9.9 fL 6.2-12.0 [facility] Work Phone: Determination of erythrocyte mean corpuscular volume (MCV)on 01-15-2022 MCV (RBC) [Entitic vol] 89.1 fL 80-94 [facility] Work Phone: Hematocrit Auto (Bld) [Volum e fraction]on 01-15-2022 Hematocrit (Bld) [Volume fraction] 44.2 % 40-54 [facility] Work Phone: Ketones Test strip Ql (U)on 01-15-2022 Ketones Ql (U) 5 mg/dl Negative [facility] Work Phone: Laboratory - Chemistry and C hemistry - challengeon 01-15-2022 CO2 [Moles/Vol] 24.0 mmol/L 21.0-32.0 [facility] Work Phone: Urea nitrogen/Creatinine [Mass ratio] 9.1 mg/mg 10-20 [facility] Work Phone: Laboratory - Hematology and Cell countson 01-15-2022 Erythrocyte distribution width (RBC) [Entitic vol] 42.2 fL 35.1-43.9 [facility] Work Phone: Erythrocyte distribution width (RBC) [Ratio] 12.9 % 11.6-14.6 [facility] Work Phone: Immature granulocytes/100 WBC (Bld) 0.900 % 0.0-0.9 [facility] Work Phone: Comment on above: IG% - Immature Granu locytes (promyelocytes, myelocytes and metamyelocytes) > 1% indicates that a LEFT SHIFT is Present. MCH (RBC) [Entitic mass] 29.8 pg 27.0-32.0 [facility] Work Phone: Nucleated RBC/100 WBC (Bld) [Ratio] 0 % 0-5 [facility] Work Phone: MCHC Auto (RBC) [Mass/Vol]on 01-15-2022 MCHC (RBC) [Mass/Vol] 33.5 g/dL 32-36 [facility] Work Phone: Mucus LM Ql (Urine sed)on Mucus Ql (Urine sed) 0 SEEN /hpf [facility] Work Phone: Nitrite Test strip Ql (U)on 01-15-2022 Nitrite Ql (U) Negative Negative [facility] Work Phone: No Panel Informationon 01-15 Estimated Creatinine Clearance Calc 41.61 ml/min [facility] Work Phone: Estimated GFR (MDRD) Amer 47 mL/min >60 [facility] Work Phone: Comment on above: GFR Calc Estimated GFR (MDRD) Non-Af Amer 39 mL/min >60 [facility] Work Phone: Comment on above: Non- GFR Calc Platelets bldon 01-15-2022 Platelets (Bld) [#/Vol] 230 10*3/uL 150-450 [facility] Work Phone: Protein Test strip Ql (U)on 01-15-2022 Protein Ql (U) Negative Negative [facility] Work Phone: Serum or plasma calcium raul urement (mass/volume)on 01-15-2022 Calcium [Mass/Vol] 9.5 mg/dL 8.5-10.1 [facility] Work Phone: Serum or plasma creatinine m easurement (mass/volume)on 01-15-2022 Creatinine [Mass/Vol] 1.86 mg/dL 0.70-1.30 [facility] Work Phone: Comment on above: The validity of the calculated GFR & GFRAA in patients over 70 years has not been determined. Clinical correlation is essential. Serum or plasma urea nitroge n measurement (mass/volume)on 01-15-2022 Urea nitrogen [Mass/Vol] 17 mg/dL 7-18 [facility] Work Phone: Squamous epithelial cells de tection in urine sediment by light microscopyon 01-15-2022 Epithelial cells.squamous LM Ql (Urine sed) 0 SEEN /hpf [facility] Work Phone: Thin prep Papanicolaou smear with manual screeningon 01-15-2022 Thin prep Papanicolaou smear with manual screening 04 05-15 [facility] Work Phone: Urine blood detectionon 01-02 RBC Ql (U) Negative Negative [facility] Work Phone: RBC Ql (U) 0 SEEN /hpf [facility] Work Phone: Urine clarityon 01-15-2022 Clarity (U) Clear Clear [facility] Work Phone: Urine color determinationon 01-15-2022 Color (U) Yellow Yellow [facility] Work Phone: Urine glucose detectionon Glucose Ql (U) Normal mg/dl Normal [facility] Work Phone: Urine leukocyte esterase det ection by dipstickon 01-15-2022 Leukocyte esterase Test strip Ql (U) 25 /ul Negative [facility] Work Phone: Urine pHon 01-15-2022 pH (U) 6.0 [pH] [facility] Work Phone: Urine sediment bacteria coun t by microscopy (number/high power field)on 01-15-2022 Bacteria LM.HPF (Urine sed) [#/Area] 0 /[HPF] None Seen [facility] Work Phone: Urine specific gravity measu rementon 01-15-2022 Specific gravity (U) [Rel density] 1.015 [facility] Work Phone: Urobilinogen Auto test strip Ql (U)on 01-15-2022 Urobilinogen Ql (U) Normal mg/dl [facility] Work Phone: COVID-19Ordered By: Hamilton marc on 05-31-2021 SARS-CoV-2 (COVID-19) RNA TAYLA+probe Ql (Unsp spec) Not detected Not Detected [facility] Work Phone: Comment on above: Not Detected. Expected Result: Not Detected _ Real-time, RT-PCR performed on the [employer] System by the [employer]. Negative results do not preclude SARS-CoV-2 infection and should not be used as the sole basis for treatment or other patient management decisions. This assay was developed by [employer] and distributed under an Emergency Use Authorization (EUA) granted by the [facility] for the qualitative detection of SARS-CoV-2 nucleic acid. Test Performed by [employer], [address] [place] [id number] [employer] Work Phone: [id number] 05-31-2021 SARS-CoV-2 (COVID-19) RNA TAYLA+probe Ql (Unsp spec) SARS-CoV-2 --> Status: F Not Detected. Expected Result: Not Detected _ Real-time, RT-PCR performed on the [employer] System by the [facility]. Negative results do not preclude SARS-CoV-2 infection and should not be used as the sole basis for treatment or other patient management decisions. This assay was developed by [employer] and distributed under an Emergency Use Authorization (EUA) granted by the FDA for the qualitative detection of SARS-CoV-2 nucleic acid. Expected Result: Not Detected _ Real-time, RT-PCR performed on the [employer] System by the [employer]. Negative results do not preclude SARS-CoV-2 infection and should not be used as the sole basis for treatment or other patient management decisions. This assay was developed by [employer] and distributed under an Emergency Use Authorization (EUA) granted by the FDA for the qualitative detection of SARS-CoV-2 nucleic acid. Normal [facility] [employer] [facility] Comment on above: Performed By: #### C OVID #### [employer] [address] [address] VL DUP LOWER EXTREMITY VENOU S BILATERALOrdered By: Hamilton Mckinnon on 05-29-2021 [facility] -------- Lower Extremity Venous Duplex Report Patient Luis Manuel, : 1955 Study 05/29/2021 Name: Albin Zazueta (66yrs) Date: Patient [id number] Age: 66 Account: [id number] ID: Gender: M Loc: 6111 BP: Ordering Physician: Hamilton Mckinnon Paint And Table Edger: Silva Ann RVT Interpreting Physician: Paco Tijerina M.D. -------- Location: [facility] -------- Indications: Lower extremity swelling and history of right above knee amputation.. -------- Conclusions 1. There is no evidence of acute deep or superficial venous thrombosis noted in the right lower extremity. 2. There is no evidence of acute deep or superficial venous thrombosis noted in the left lower extremity. 3. Prior right above knee amputation -------- History: Risk factors: Former tobacco use. Hypertension. Obese. Hyperlipidemia. Immobility. Age over 65 years. -------- Study data: Complete lower extremity venous duplex evaluation. Grayscale 2D imaging, color Doppler imaging, and spectral Doppler analysis. Location: Bedside. Procedure: A vascular evaluation was performed with the patient in the supine position. Images were obtained using a [employer] E9 vascular ultrasound machine. -------- Venous flow and imaging: + + -------+ --------+ -------+ +Location +Overall+Properties +Comments + + + -------+ --------+ -------+ +R CFV +Patent +Normal phasicity; + + + + +spontaneous; normal + + + + +augmentation; + + + + +compressible + + + + -------+ --------+ -------+ +R saphenofemoral +Patent +Compressible + + +junction + + + + + + -------+ --------+ -------+ +R profunda femoral +Patent + -+ + + + -------+ --------+ -------+ +R FV - prox. +Patent +Compressible + + + + -------+ --------+ -------+ +R FV - mid +-------+ ---------+Right above knee + + + + +amputation. + + + -------+ --------+ -------+ +L CFV +Patent +Normal phasicity; + + + + +spontaneous; normal + + + + +augmentation; + + + + +compressible + + + + -------+ --------+ -------+ +L saphenofemoral +Patent +Compressible + + +junction + + + + + + -------+ --------+ -------+ +L profunda femoral +Patent + -+ + + + -------+ --------+ -------+ +L FV - prox. +Patent +Compressible + + + + -------+ --------+ -------+ +L FV - mid +Patent +Normal phasicity; + + + + +spontaneous; normal + + + + +augmentation; + + + + +compressible + + + + -------+ --------+ -------+ +L FV - distal +Patent +Compressible + + + + -------+ --------+ -------+ +L popliteal +Patent +Normal phasicity; + + + + +spontaneous; normal + + + + +augmentation; + + + + +compressible + + + + -------+ --------+ (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 [employer] Work Phone: Mynor, Nuubo Incoming Cardiology Results From [facility] - 05/29/2021 4:51 PM EDT [facility] -------- Lower Extremity Venous Duplex Report Patient Luis Manuel : 1955 Study 05/29/2021 Name: Albin Zazueta () Date: Patient Age: 66 Account: [id number] ID: Gender: Nilam Loc: 6111 BP: Ordering Physician: Hamilton Mckinnon Paint And Table Edger: Silva Ann T Interpreting Physician: Paco Tijerina M.D. -------- Location: [facility] -------- Indications: Lower extremity swelling and history of right above knee amputation.. -------- Conclusions 1. There is no evidence of acute deep or superficial venous thrombosis noted in the right lower extremity. 2. There is no evidence of acute deep or superficial venous thrombosis noted in the left lower extremity. 3. Prior right above knee amputation -------- History: Risk factors: Former tobacco use. Hypertension. Obese. Hyperlipidemia. Immobility. Age over 65 years. -------- Study data: Complete lower extremity venous duplex evaluation. Grayscale 2D imaging, color Doppler imaging, and spectral Doppler analysis. Location: Bedside. Procedure: A vascular evaluation was performed with the patient in the supine position. Images were obtained using a [employer] E9 vascular ultrasound machine. -------- Venous flow and imaging: + + -------+ --------+ -------+ +Location +Overall+Properties +Comments + + + -------+ --------+ -------+ +R CFV +Patent +Normal phasicity; + + + + +spontaneous; normal + + + + +augmentation; + + + + +compressible + + + + -------+ --------+ -------+ +R saphenofemoral +Patent +Compressible + + +junction + + + + + + -------+ --------+ -------+ +R profunda femoral +Patent + -+ + + + -------+ --------+ -------+ +R FV - prox. +Patent +Compressible + + + + -------+ --------+ -------+ +R FV - mid +-------+ ---------+Right above knee + + + + +amputation. + + + -------+ --------+ -------+ +L CFV +Patent +Normal phasicity; + + + + +spontaneous; normal + + + + +augmentation; + + + + +compressible + + + + -------+ --------+ -------+ +L saphenofemoral +Patent +Compressible + + +junction + + + + + + -------+ --------+ -------+ +L profunda femoral +Patent + -+ + + + -------+ --------+ -------+ +L FV - prox. +Patent +Compressible + + + + -------+ --------+ -------+ +L FV - mid +Patent +Normal phasicity; + + + + +spontaneous; normal + + + + +augmentation; + + + + +compressible + + + + -------+ --------+ -------+ +L FV - distal +Patent +Compressible + + + + -------+ --------+ -------+ +L popliteal +Patent +Normal phasicity; + + + + +spontaneous; normal + + + + +augmentation; + + + + +compressible + + + + -------+ --------+ -------+ +L gastrocnemius +Patent +Compressible + + + + -------+ --------+ -------+ +L PTV +Patent +Compressible + + + + -------+ --------+ -------+ +L peroneal +Patent +Compressible + + + + -------+ --------+ -------+ +L soleal +Patent +Compressible + + + + -------+ --------+ -------+ +L GSV +Patent +Compressible + + + + -------+ --------+ -------+ Prepared and electronically signed by Paco Tijerina M.D. 05/29/2021 16:51 [facility] Work Phone: [employer] Phone: VL Venous Duplex US Lower Ex t Bilateralon 05-29-2021 VL Venous Duplex US Lower Ext Bilateral Patient Name: ALBIN ISSA Ultrasound ACCESSION EXAM DATE/TIME PROCEDURE ORDERING PROVIDER [id number] 05/29/2021 15:17 EDT VL Venous Duplex [place] [id number] -HAMILTON MCKINNON Lower Ext Bilateral CPT code 23597 Reason For Exam (VL Venous Duplex US Lower Ext Bilateral) edema Report [facility] -------- Lower Extremity Venous Duplex Report Patient DO Luis ManuelB: 1955 Study 05/29/2021 Name: Albin Zazueta (66yrs) Date: Patient [id number] Age: 66 Account: [id number] ID: Gender: Nilam Loc: 6111 BP: Ordering Physician: Hamilton Mckinnon Paint And Table Edger: Silva Ann RVT Interpreting Physician: Paco Tijerina M.D. -------- Location: [facility] -------- Indications: Lower extremity swelling and history of right above knee amputation.. -------- Conclusions 1. There is no evidence of acute deep or superficial venous thrombosis noted in the right lower extremity. 2. There is no evidence of acute deep or superficial venous thrombosis noted in the left lower extremity. 3. Prior right above knee amputation -------- History: Risk factors: Former tobacco use. Hypertension. Obese. Hyperlipidemia. Immobility. Age over 65 years. -------- Study data: Complete lower extremity venous duplex evaluation. Grayscale 2D imaging, color Doppler imaging, and spectral Doppler analysis. Location: Bedside. Procedure: A vascular evaluation was performed with the patient in the supine position. Images were obtained Ultrasound Report using a [employer] E9 vascular ultrasound machine. -------- Venous flow and imaging: + + -------+ --------+ -------+ +Location +Overall+Properties +Comments + + + -------+ --------+ -------+ +R CFV +Patent +Normal phasicity; + + + + +spontaneous; normal + + + + +augmentation; + + + + +compressible + + + + -------+ --------+ -------+ +R saphenofemoral +Patent +Compressible + + +junction + + + + + + -------+ --------+ -------+ +R profunda femoral +Patent + -+ + + + -------+ --------+ -------+ +R FV - prox. +Patent +Compressible + + + + -------+ --------+ -------+ +R FV - mid +-------+ ---------+Right above knee + + + + +amputation. + + + -------+ --------+ -------+ +L CFV +Patent +Normal phasicity; + + + + +spontaneous; normal + + + + +augmentation; + + + + +compressible + + + + -------+ --------+ -------+ +L saphenofemoral +Patent +Compressible + + +junction + + + + + + -------+ --------+ -------+ +L profunda femoral +Patent + -+ + + + -------+ --------+ -------+ +L FV - prox. +Patent +Compressible + + + + -------+ --------+ -------+ +L FV - mid +Patent +Normal phasicity; + + + + +spontaneous; normal + + + + +augmentation; + + + + +compressible + + + + -------+ --------+ -------+ +L FV - distal +Patent +Compressible + + + + -------+ --------+ -------+ +L popliteal +Patent +Normal phasicity; + + + + +spontaneous; normal + + + + +augmentation; + + + + +compressible + + + + -------+ --------+ -------+ +L gastrocnemius +Patent +Compressible + + + + -------+ --------+ -------+ +L PTV +Patent +Compressible + + + + -------+ --------+ -------+ +L peroneal +Patent +Compressible + + + + -------+ --------+ -------+ +L soleal +Patent +Compressible + + + + -------+ --------+ -------+ +L GSV +Patent +Compressible + + + + -------+ --------+ (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 Normal [facility] Basic Metabolic Panelon 06-2 Anion gap [Moles/Vol] 5 mmol/L Normal 3-13 [facility] Comment on above: Performed By: #### C OVID #### [facility] [address] [place], [place] Calcium [Mass/Vol] 9.4 mg/dL Normal 8.4-10.4 [facility] Comment on above: Performed By: #### C OVID #### [facility] [employer] [facility] [address] [place] [address] CO2 [Moles/Vol] 23 mmol/L Normal 22-30 [facility] Comment on above: Performed By: #### C OVID #### [facility] [address] [place] [address] Glucose [Mass/Vol] 122 mg/dL High 70-100 [facility] Comment on above: Performed By: #### C OVID #### [facility] [address] [place] [address] Urea nitrogen [Mass/Vol] 15 mg/dL Normal 7-20 [facility] Comment on above: Performed By: #### C OVID #### [facility] [employer] [facility] [address] [place], [place] Creatinine [Mass/Vol] 1.13 mg/dL Normal 0.52-1.25 [facility] Comment on above: Performed By: #### C OVID #### [facility] [address] [place], [place] GFR/1.73 sq M.predicted among blacks MDRD (S/P/Bld) [Vol rate/Area] 78.0 mL/min/{1.73_m2} Normal >60 [facility] Comment on above: Performed By: #### C OVID #### [facility] [address] [place], [place] GFR/1.73 sq M.predicted among non-blacks MDRD (S/P/Bld) [Vol rate/Area] 67.3 mL/min/{1.73_m2} Normal >60 [facility] Comment on above: Result Comment: KDIG O guidelines provide the following GFR categories: Stage GFR(ml/min/1.73 m2) Terms G1 >=90 Normal or high G2 60-89 Mildly decreased* G3a 45-59 Mildly to moderately decreased G3b 30-44 Moderately to severely decreased G4 15-29 Severely decreased G5 <15 Kidney failure *Relative to young adult level. In the absence of evidence of kidney damage, neither GFR category G1 nor G2 fulfill the criteria for CKD. The CKD-EPI equation is validated in individuals 18 years of age and older. Currently the best equation for estimating glomerular filtration rate (GFR) from serum creatinine in children is the Bedside Connors equation. It is less accurate in patients with extremes of muscle mass, restriction of dietary protein, ingestion of creatine, extra-renal metabolism of creatinine, or treatment with medications that affect renal tubular creatinine secretion. Performed By: #### C OVID #### [facility] [address] [place], [place] Potassium [Moles/Vol] 4.5 mmol/L Normal 3.5-5.1 [facility] Comment on above: Performed By: #### C OVID #### [place] [address] [place], [place] Chloride [Moles/Vol] 109 mmol/L High 98-107 [facility] Comment on above: Performed By: #### C OVID #### [place] [address] [address] [place], [place] Sodium [Moles/Vol] 137 mmol/L Normal 135-145 [facility] [employer] [facility] Comment on above: Performed By: #### C OVID #### [facility] [address] [place] [address] Basic Metabolic PanelOrdered By: Sd Moreno on 05-25-2021 Anion gap [Moles/Vol] 5 mmol/L 3 - 13 mmol/L [employer] Work Phone: Calcium [Mass/Vol] 9.4 mg/dL 8.4 - 10. 4 mg/dL [facility] Work Phone: Chloride [Moles/Vol] 109 mmol/L High 98 - 10 7 mmol/L [facility] Work Phone: CO2 [Moles/Vol] 23 mmol/L 22 - 30 mmol/L [facility] Work Phone: Creatinine [Mass/Vol] 1.13 mg/dL 0.52 - 1.25 mg/dL [employer] Work Phone: EGFR IF NonAfrican [place] 67.3 mL/min >60 [facility] Work Phone: Comment on above: KDIGO guidelines pro vide the following GFR categories: Stage GFR(ml/min/1.73 m2) Terms G1 >=90 Normal or high G2 60-89 Mildly decreased* G3a 45-59 Mildly to moderately decreased G3b 30-44 Moderately to severely decreased G4 15-29 Severely decreased G5 <15 Kidney failure *Relative to young adult level. In the absence of evidence of kidney damage, neither GFR category G1 nor G2 fulfill the criteria for CKD. The CKD-EPI equation is validated in individuals 18 years of age and older. Currently the best equation for estimating glomerular filtration rate (GFR) from serum creatinine in children is the Bedside Connors equation. It is less accurate in patients with extremes of muscle mass, restriction of dietary protein, ingestion of creatine, extra-renal metabolism of creatinine, or treatment with medications that affect renal tubular creatinine secretion. GFR/1.73 sq M.predicted among blacks MDRD (S/P/Bld) [Vol rate/Area] 78.0 mL/min/{1.73_m2} >60 [facility] Work Phone: Glucose [Mass/Vol] 122 mg/dL High 70 - 100 mg/dL [facility] Work Phone: Potassium [Moles/Vol] 4.5 mmol/L 3.5 - 5.1 mmol/L [facility] Work Phone: Sodium [Moles/Vol] 137 mmol/L 135 - 145 mmol/L [facility] Work Phone: Urea nitrogen (BldV) [Mass/Vol] 15 mg/dL 7 - 20 mg/dL [facility] Work Phone: CBC Auto DifferentialOrdered By: Sd Moreno on 05-25-2021 Absolute Baso # 0.0 10*3/uL 0.0 - 0.2 10*3/uL [facility] Work Phone: Absolute Neut # 9.2 10*3/uL High 1.8 - 7.0 10*3/uL [facility] Work Phone: Basophils/100 WBC (Bld) 0.1 % 0.0 - 2.0 % [facility] Work Phone: Eosinophils (Bld) [#/Vol] 0.0 10*3/uL 0.0 - 0.5 10*3/uL [facility] Work Phone: Eosinophils/100 WBC (Bld) 0.1 % Low 1.0 - 6.0 % [facility] Work Phone: Granulocytes/100 WBC (Bld) 88.1 % High 40.0 - 80.0 % [facility] Work Phone: Hematocrit (Bld) [Volume fraction] 34.4 % Low 40.0 - 52.0 % [facility] Work Phone: Hemoglobin.gastrointes tinal spec 1 Ql (Stl) 11.9 g/dL Low 13.0 - 18.0 g/dL [facility] Work Phone: Interpretation and review of laboratory results Abnormal [employer] Work Phone: Lymphocytes (Bld) [#/Vol] 0.7 10*3/uL Low 1.0 - 4.3 10*3/uL [facility] Work Phone: Lymphocytes/100 WBC (Bld) 6.6 % Low 20.0 - 40.0 % [employer] Work Phone: MCH (RBC) [Entitic mass] 30.6 pg 26.0 - 34.0 pg [employer] Work Phone: MCHC (RBC) [Mass/Vol] 34.7 % 32.0 - 36.0 % [employer] Work Phone: MCV (RBC) [Entitic vol] 88.4 fL 80.0 - 98.0 fL [employer] Work Phone: Monocytes (Bld) [#/Vol] 0.5 10*3/uL 0.0 - 0.8 10*3/uL [employer] Work Phone: Monocytes/100 WBC (Bld) 5.1 % 2.0 - 10.0 % [employer] Phone: Platelet distribution width (Bld) [Ratio] 13.7 % 11.5 - 14.5 % [employer] Work Phone: Platelet mean volume (Bld) [Entitic vol] 8.0 fL 7.4 - 10.4 fL [employer] Work Phone: Platelets (Bld) [#/Vol] 171 10*3/uL 140 - 440 10*3/uL [employer] Work Phone: RBC (Bld) [#/Vol] 3.90 10*6/uL Low 4.40 - 5.9 0 10*6/uL [employer] Work Phone: WBC (Bld) [#/Vol] 10.4 10*3/uL 3.6 - 10.7 10*3/uL [employer] Work Phone: Test Performed by [employer], [address] [place] [id number] [employer] Work Phone: [employer] Work Phone: Hemogram w/ Autodiffon 05-25 Abs Baso Cnt 0.0 10*3/uL Normal 0.0-0.2 [facility] Comment on above: Performed By: #### C OVID #### [place] [address] [place], [place] Abs Neutrophile Cnt 9.2 10*3/uL High 1.8-7.0 [facility] Comment on above: Performed By: #### C OVID #### [place] [address] [address] [place], [place] Basophils/100 WBC (Bld) 0.1 % Normal 0.0-2.0 [facility] Comment on above: Performed By: #### C OVID #### [place] [address] [address] [place], [place] Eosinophils (Bld) [#/Vol] 0.0 10*3/uL Normal 0.0-0.5 [facility] Comment on above: Performed By: #### C OVID #### [place] [address] [address] [place], [place] Eosinophils/100 WBC (Bld) 0.1 % Low 1.0-6.0 [facility] Comment on above: Performed By: #### C OVID #### [place] [address] [address] [place], [place] Erythrocyte distribution width (RBC) [Ratio] 13.7 % Normal 11.5-14.5 [facility] Comment on above: Performed By: #### C OVID #### [place] [address] [place], [place] Granulocytes/100 WBC (Bld) 88.1 % High 40.0-80.0 [facility] Comment on above: Performed By: #### C OVID #### [place] [address] [place], [place] Hematocrit (Bld) [Volume fraction] 34.4 % Low 40.0-52.0 [facility] Comment on above: Performed By: #### C OVID #### [place] [address] [place], [place] Hemoglobin (Bld) [Mass/Vol] 11.9 g/dL Low 13.0-18.0 [facility] Comment on above: Performed By: #### C OVID #### [facility] [address], [place] Lymphocytes (Bld) [#/Vol] 0.7 10*3/uL Low 1.0-4.3 [facility] Comment on above: Performed By: #### C OVID #### [facility] [address] [place], [place] Lymphocytes/100 WBC (Bld) 6.6 % Low 20.0-40.0 [facility] Comment on above: Performed By: #### C OVID #### [facility] [address] [place], [place] MCH (RBC) [Entitic mass] 30.6 pg Normal 26.0-34.0 [facility] Comment on above: Performed By: #### C OVID #### [facility] [address] [place], [place] MCHC 34.7 % Normal 32.0-36.0 [facility] Comment on above: Performed By: #### C OVID #### [facility] [address] [place], [place] MCV (RBC) [Entitic vol] 88.4 fL Normal 80.0-98.0 [facility] Comment on above: Performed By: #### C OVID #### [facility] [address] [place], [place] Monocytes (Bld) [#/Vol] 0.5 10*3/uL Normal 0.0-0.8 [facility] Comment on above: Performed By: #### C OVID #### [facility] [address] [place], [place] Monocytes/100 WBC (Bld) 5.1 % Normal 2.0-10.0 [facility] Comment on above: Performed By: #### C OVID #### [facility] [address] [place], [place] Platelet mean volume (Bld) [Entitic vol] 8.0 fL Normal 7.4-10.4 [facility] Comment on above: Performed By: #### C OVID #### [facility] [address] [place] [address] Platelets (Bld) [#/Vol] 171 10*3/uL Normal 140-440 [facility] Comment on above: Performed By: #### C OVID #### [place] [address] [place] [address] RBC (Bld) [#/Vol] 3.90 10*6/uL Low 4.40-5.90 [facility] Comment on above: Performed By: #### C OVID #### [place] [address] [place] [address] WBC (Bld) [#/Vol] 10.4 10*3/uL Normal 3.6-10.7 [facility] Comment on above: Performed By: #### C OVID #### [place] [address] [place] [address] Magnesiumon 05-25-2021 Magnesium [Mass/Vol] 2.0 mg/dL Normal 1.6-2.3 [facility] Comment on above: Performed By: #### C OVID #### [place] [address] [place] [address] MagnesiumOrdered By: Sd trevino on 05-25-2021 Magnesium [Mass/Vol] 2.0 mg/dL 1.6 - 2 .3 mg/dL [facility] Work Phone: No Panel InformationOrdered By: Sd Moreno on 05-25-2021 Interpretation and review of laboratory results Abnormal [facility] Work Phone: Test Performed by [facility], [facility] [place] [address] [facility] Work Phone: [facility] Work Phone: Phosphoruson 05-25-2021 Phosphate [Mass/Vol] 1.8 mg/dL Low 2.5-4.5 [facility] Comment on above: Performed By: #### C OVID #### [place] [address] [place] [address] PhosphorusOrdered By: Sd Moreno on 05-25-2021 Phosphate [Mass/Vol] 1.8 mg/dL Low 2.5 - 4 .5 mg/dL [facility] Work Phone: Basic Metabolic Panelon 05-03 Calcium [Mass/Vol] 9.3 mg/dL Normal 8.4-10.4 [facility] Comment on above: Performed By: #### P HOS3, HEMDF, MG3, BMP3 #### [place] [address] [place] [address] Anion gap [Moles/Vol] 5 mmol/L Normal 3-13 [facility] Comment on above: Performed By: #### P HOS3, HEMDF, MG3, BMP3 #### [place] [address] [place], [place] CO2 [Moles/Vol] 23 mmol/L Normal 22-30 [facility] Comment on above: Performed By: #### P HOS3, HEMDF, MG3, BMP3 #### [place] [address] [place], [place] Creatinine [Mass/Vol] 1.02 mg/dL Normal 0.52-1.25 [facility] Comment on above: Performed By: #### P HOS3, HEMDF, MG3, BMP3 #### [place] [address] [place] [address] GFR/1.73 sq M.predicted among blacks MDRD (S/P/Bld) [Vol rate/Area] 88.3 mL/min/{1.73_m2} Normal >60 [facility] Comment on above: Performed By: #### P HOS3, HEMDF, MG3, BMP3 #### [place] [place] [address] GFR/1.73 sq M.predicted among non-blacks MDRD (S/P/Bld) [Vol rate/Area] 76.2 mL/min/{1.73_m2} Normal >60 [facility] Comment on above: Result Comment: KDIG O guidelines provide the following GFR categories: Stage GFR(ml/min/1.73 m2) Terms G1 >=90 Normal or high G2 60-89 Mildly decreased* G3a 45-59 Mildly to moderately decreased G3b 30-44 Moderately to severely decreased G4 15-29 Severely decreased G5 <15 Kidney failure *Relative to young adult level. In the absence of evidence of kidney damage, neither GFR category G1 nor G2 fulfill the criteria for CKD. The CKD-EPI equation is validated in individuals 18 years of age and older. Currently the best equation for estimating glomerular filtration rate (GFR) from serum creatinine in children is the Bedside Connors equation. It is less accurate in patients with extremes of muscle mass, restriction of dietary protein, ingestion of creatine, extra-renal metabolism of creatinine, or treatment with medications that affect renal tubular creatinine secretion. Performed By: #### P HOS3, HEMDF, MG3, BMP3 #### [address] Glucose [Mass/Vol] 100 mg/dL Normal 70-100 [facility] Comment on above: Performed By: #### P HOS3, HEMDF, MG3, BMP3 #### [address] Urea nitrogen [Mass/Vol] 15 mg/dL Normal 7-20 [facility] Comment on above: Performed By: #### P HOS3, HEMDF, MG3, BMP3 #### [address] Chloride [Moles/Vol] 109 mmol/L High 98-107 [facility] Comment on above: Performed By: #### P HOS3, HEMDF, MG3, BMP3 #### [address] Potassium [Moles/Vol] 4.0 mmol/L Normal 3.5-5.1 [facility] Comment on above: Performed By: #### P HOS3, HEMDF, MG3, BMP3 #### [address] Sodium [Moles/Vol] 137 mmol/L Normal 135-145 [facility] Comment on above: Performed By: #### P HOS3, HEMDF, MG3, BMP3 #### [address] [place] [address] Basic Metabolic PanelOrdered By: Linda Mcknight on 05-24-2021 Anion gap [Moles/Vol] 5 mmol/L 3 - 13 mmol/L [employer] Work Phone: Calcium [Mass/Vol] 9.3 mg/dL 8.4 - 10. 4 mg/dL [facility] Work Phone: Chloride [Moles/Vol] 109 mmol/L High 98 - 10 7 mmol/L [facility] Work Phone: CO2 [Moles/Vol] 23 mmol/L 22 - 30 mmol/L [facility] Work Phone: Creatinine [Mass/Vol] 1.02 mg/dL 0.52 - 1.25 mg/dL [employer] Work Phone: EGFR IF NonAfrican [place] 76.2 mL/min >60 [facility] Work Phone: Comment on above: KDIGO guidelines pro vide the following GFR categories: Stage GFR(ml/min/1.73 m2) Terms G1 >=90 Normal or high G2 60-89 Mildly decreased* G3a 45-59 Mildly to moderately decreased G3b 30-44 Moderately to severely decreased G4 15-29 Severely decreased G5 <15 Kidney failure *Relative to young adult level. In the absence of evidence of kidney damage, neither GFR category G1 nor G2 fulfill the criteria for CKD. The CKD-EPI equation is validated in individuals 18 years of age and older. Currently the best equation for estimating glomerular filtration rate (GFR) from serum creatinine in children is the Bedside Connors equation. It is less accurate in patients with extremes of muscle mass, restriction of dietary protein, ingestion of creatine, extra-renal metabolism of creatinine, or treatment with medications that affect renal tubular creatinine secretion. GFR/1.73 sq M.predicted among blacks MDRD (S/P/Bld) [Vol rate/Area] 88.3 mL/min/{1.73_m2} >60 [facility] Work Phone: Glucose [Mass/Vol] 100 mg/dL 70 - 100 mg/dL [facility] Work Phone: Interpretation and review of laboratory results Abnormal [facility] Work Phone: Potassium [Moles/Vol] 4.0 mmol/L 3.5 - 5.1 mmol/L [facility] Work Phone: Sodium [Moles/Vol] 137 mmol/L 135 - 145 mmol/L [facility] Work Phone: Urea nitrogen (BldV) [Mass/Vol] 15 mg/dL 7 - 20 mg/dL [facility] Work Phone: CBC auto differentialOrdered By: Linda Mcknight on 05-24-2021 Absolute Baso # 0.0 10*3/uL 0.0 - 0.2 10*3/uL [facility] Work Phone: Absolute Neut # 5.5 10*3/uL 1.8 - 7.0 10*3/uL [facility] Work Phone: Basophils/100 WBC (Bld) 0.5 % 0.0 - 2.0 % [facility] Work Phone: Eosinophils (Bld) [#/Vol] 0.3 10*3/uL 0.0 - 0.5 10*3/uL [facility] Work Phone: Eosinophils/100 WBC (Bld) 3.3 % 1.0 - 6.0 % [facility] Work Phone: Granulocytes/100 WBC (Bld) 72.8 % 40.0 - 80.0 % [facility] Work Phone: Hematocrit (Bld) [Volume fraction] 37.4 % Low 40.0 - 52.0 % [facility] Work Phone: Hemoglobin.gastrointes tinal spec 1 Ql (Stl) 12.8 g/dL Low 13.0 - 18.0 g/dL [facility] Work Phone: Interpretation and review of laboratory results Abnormal [employer] Work Phone: Lymphocytes (Bld) [#/Vol] 1.3 10*3/uL 1.0 - 4.3 10*3/uL [facility] Work Phone: Lymphocytes/100 WBC (Bld) 17.3 % Low 20.0 - 40.0 % [employer] Work Phone: MCH (RBC) [Entitic mass] 30.8 pg 26.0 - 34.0 pg [employer] Work Phone: MCHC (RBC) [Mass/Vol] 34.3 % 32.0 - 36.0 % [employer] Work Phone: MCV (RBC) [Entitic vol] 89.9 fL 80.0 - 98.0 fL [employer] Work Phone: Monocytes (Bld) [#/Vol] 0.5 10*3/uL 0.0 - 0.8 10*3/uL [facility] Work Phone: Monocytes/100 WBC (Bld) 6.1 % 2.0 - 10.0 % [facility] Work Phone: Platelet distribution width (Bld) [Ratio] 14.2 % 11.5 - 14.5 % [facility] Work Phone: Platelet mean volume (Bld) [Entitic vol] 8.0 fL 7.4 - 10.4 fL [employer] Work Phone: Platelets (Bld) [#/Vol] 169 10*3/uL 140 - 440 10*3/uL [facility] Work Phone: RBC (Bld) [#/Vol] 4.17 10*6/uL Low 4.40 - 5.9 0 10*6/uL [facility] Work Phone: WBC (Bld) [#/Vol] 7.6 10*3/uL 3.6 - 10.7 10*3/uL [facility] Work Phone: Test Performed by [employer], [address] [place] [address] [facility] Work Phone: [facility] Work Phone: CR Chest 1 View Frontalon CR Chest 1 View Frontal Patient Name: ALBIN ISSA Diagnostic Radiology ACCESSION EXAM DATE/TIME PROCEDURE ORDERING PROVIDER [id number] 05/24/2021 05:59 EDT CR Chest 1 View Frontal MD FONTANA ALEX CPT code 29770 Reason For Exam (CR Chest 1 View [...] focal areas of consolidation. Report Dictated on Final Dictated: 05/24/2021 8:47 am Dictating Physician: MD HOPKINS LAURA Signed Date and Time: 05/24/2021 8:49 am Signed by: MD HOPKINS LAURA Transcribed Date and Time: 05/24/2021 8:47 Normal [facility] CR Elbow 3+ Views Lefton CR Elbow 3+ Views Left [id number] Diagnostic Radiology ACCESSION EXAM DATE/TIME PROCEDURE ORDERING PROVIDER [id number] 05/24/2021 05:59 EDT CR Elbow 3+ Views Left MD FONTANA ALEX CPT code 11110 Reason For Exam (CR Elbow 3+ Views [...] of the distal humerus. Report Dictated on Final Dictated: 05/24/2021 8:44 am Dictating Physician: MD HOPKINS LAURA Signed Date and Time: 05/24/2021 8:47 am Signed by: MD HOPKINS LAURA Transcribed Date and Time: 05/24/2021 8:44 Normal [facility] CR Humerus 2+ Views Lefton 0 05-24-2021 CR Humerus 2+ Views Left Patient Name: ALBIN ISSA Diagnostic Radiology ACCESSION EXAM DATE/TIME PROCEDURE ORDERING PROVIDER [id number] 05/24/2021 17:43 EDT CR Humerus 2+ Views Left [id number] -SD MORENO CPT code 03090 Reason For Exam (CR Humerus 2+ Views [...] fracture with anatomic alignment Report Dictated on Final Dictated: 05/24/2021 5:44 pm Dictating Physician: MD ROJAS DIANE Signed Date and Time: 05/24/2021 5:46 pm Signed by: MD ROJAS DIANE Transcribed Date and Time: 05/24/2021 5:44 Normal [facility] EKG 12 LeadOrdered By: Juan Alberto Fontana on 05-24-2021 [facility] Test Date: 2021-05-24 Pat Name: ALBIN ISSA Department: 1AH6 Room: [facility] Gender: M Hospital Admissions Clerk: DOC : 1955 Requested By: JUAN ALBERTO FONTANA Order Number: [id number] Wayne MD: Nicolas Gonzales Measurements Intervals Meadow Rate: 66 P: 33 GA: 183 QRS: -35 QRSD: 112 T: 52 QT: 426 QTc: 447 Interpretive Statements Sinus rhythm ANTEROLATERAL INFARCT, OLD Electronically Signed On 05-24-2021 15:05:50 EDT by Nicolas GARCIA Work Phone: [place], [facility] Incoming Cardiology Results From [employer] - 05/24/2021 3:06 PM EDT [facility] Test Date: 2021-05-24 Pat Name: ALBIN ISSA Department: 1AH6 Room: [facility] Gender: M Hospital Admissions Clerk: DOC : 1955 Requested By: JUAN ALBERTO FONTANA Order Number: [id number] Reading MD: Nicolas Gonzales Measurements Intervals Meadow Rate: 66 P: 33 GA: 183 QRS: -35 QRSD: 112 T: 52 QT: 426 QTc: 447 Interpretive Statements Sinus rhythm ANTEROLATERAL INFARCT, OLD Electronically Signed On 05-24-2021 15:05:50 EDT by Nicolas Gonzales [facility] Work Phone: [facility] Work Phone: Hemogram w/ Autodiffon 05-24 Abs Baso Cnt 0.0 10*3/uL Normal 0.0-0.2 [facility] Comment on above: Performed By: #### P HOS3, HEMDF, MG3, BMP3 #### [facility] [employer] [address] [place] [address] Abs Neutrophile Cnt 5.5 10*3/uL Normal 1.8-7.0 [facility] Comment on above: Performed By: #### P HOS3, HEMDF, MG3, BMP3 #### [facility] [employer] [facility] [address] [place] [address] Basophils/100 WBC (Bld) 0.5 % Normal 0.0-2.0 [facility] Comment on above: Performed By: #### P HOS3, HEMDF, MG3, BMP3 #### [facility] [employer] [facility] [address] [place] [address] Eosinophils (Bld) [#/Vol] 0.3 10*3/uL Normal 0.0-0.5 [facility] Comment on above: Performed By: #### P HOS3, HEMDF, MG3, BMP3 #### [facility] [employer] [facility] [address] [place] [address] Eosinophils/100 WBC (Bld) 3.3 % Normal 1.0-6.0 [facility] Comment on above: Performed By: #### P HOS3, HEMDF, MG3, BMP3 #### [address] [place], [place] Erythrocyte distribution width (RBC) [Ratio] 14.2 % Normal 11.5-14.5 [facility] Comment on above: Performed By: #### P HOS3, HEMDF, MG3, BMP3 #### [address] Granulocytes/100 WBC (Bld) 72.8 % Normal 40.0-80.0 [facility] Comment on above: Performed By: #### P HOS3, HEMDF, MG3, BMP3 #### [address] Hematocrit (Bld) [Volume fraction] 37.4 % Low 40.0-52.0 [facility] Comment on above: Performed By: #### P HOS3, HEMDF, MG3, BMP3 #### [address] [address] [place], [place] Hemoglobin (Bld) [Mass/Vol] 12.8 g/dL Low 13.0-18.0 [facility] Comment on above: Performed By: #### P HOS3, HEMDF, MG3, BMP3 #### [address] Lymphocytes (Bld) [#/Vol] 1.3 10*3/uL Normal 1.0-4.3 [facility] Comment on above: Performed By: #### P HOS3, HEMDF, MG3, BMP3 #### [address] Lymphocytes/100 WBC (Bld) 17.3 % Low 20.0-40.0 [facility] Comment on above: Performed By: #### P HOS3, HEMDF, MG3, BMP3 #### [address] [address] [place], [place] MCH (RBC) [Entitic mass] 30.8 pg Normal 26.0-34.0 [facility] Comment on above: Performed By: #### P HOS3, HEMDF, MG3, BMP3 #### [address] [place] MCHC 34.3 % Normal 32.0-36.0 [facility] Comment on above: Performed By: #### P HOS3, HEMDF, MG3, BMP3 #### [address] [place] MCV (RBC) [Entitic vol] 89.9 fL Normal 80.0-98.0 [facility] Comment on above: Performed By: #### P HOS3, HEMDF, MG3, BMP3 #### [address] Monocytes (Bld) [#/Vol] 0.5 10*3/uL Normal 0.0-0.8 [facility] Comment on above: Performed By: #### P HOS3, HEMDF, MG3, BMP3 #### [address] [address] [place], [place] Monocytes/100 WBC (Bld) 6.1 % Normal 2.0-10.0 [facility] Comment on above: Performed By: #### P HOS3, HEMDF, MG3, BMP3 #### [address] [address] [place], [place] Platelet mean volume (Bld) [Entitic vol] 8.0 fL Normal 7.4-10.4 [facility] Comment on above: Performed By: #### P HOS3, HEMDF, MG3, BMP3 #### [address] [place] Platelets (Bld) [#/Vol] 169 10*3/uL Normal 140-440 [facility] Comment on above: Performed By: #### P HOS3, HEMDF, MG3, BMP3 #### [address] [address] [place], [place] RBC (Bld) [#/Vol] 4.17 10*6/uL Low 4.40-5.90 [facility] Comment on above: Performed By: #### P HOS3, HEMDF, MG3, BMP3 #### [address] [address] WBC (Bld) [#/Vol] 7.6 10*3/uL Normal 3.6-10.7 [facility] Comment on above: Performed By: #### P HOS3, HEMDF, MG3, BMP3 #### [address] [address] Magnesiumon 05-24-2021 Magnesium [Mass/Vol] 2.0 mg/dL Normal 1.6-2.3 [facility] Comment on above: Performed By: #### P HOS3, HEMDF, MG3, BMP3 #### [address] [address] MagnesiumOrdered By: Sd trevino on 05-24-2021 Magnesium [Mass/Vol] 2.0 mg/dL 1.6 - 2 .3 mg/dL [facility] Work Phone: No Panel InformationOrdered By: Linda Mcknight on 05-24-2021 Test Performed by [facility] [employer] [address] [address] [facility] Work Phone: [facility] Work Phone: OPERATIVE REPORTOrdered By: 3m Scanning on 05-24-2021 [facility] Work Phone: Op Noteon 05-24-2021 Op Note [place] [address] [place] [address] Dept: [phone] Loc: [phone] Operative Report Patient Name: Albin Issa Date of : 1955 Date of Surgery: 05/24/21 Pre-operative diagnosis: Left distal humeral shaft fracture Post-operative diagnosis: Same Procedure(s): Open reduction internal fixation of left humeral shaft fracture (CPT 61067) Surgeon: Paco Biswas M.D. Clamp Forklift Operator(s): Frank Leo M.D. and Carol Ascencio M.D. Anesthesia: General EBL: 200cc IVF: Crystalloid Medications: Three grams of cefazolin were given. Implants: [employer] extra-articular plate Clinical History/Indication for Surgery The patient is a 66 y.o. year old male who was presents for operative fixation of a displaced left distal humeral shaft fracture. Typical indications for surgery were reviewed and operative fixation was recommended. Risks of fracture surgery in general were reviewed including, but not limited to, infection, non-union, need for additional procedures, painful or prominent hardware which could require removal, failure of fixation which would require revision, damage to normal structures (specifically radial nerve and resultant wrist drop) as well as medical complications such as OH, stroke, PE, DVT, and even . Pt was given opportunity to ask questions and consider his options. He ultimately elected to proceed with surgery. No guarantees were given or implied. Operative Narration The patient was identified in the pre-operative holding area. The surgical site was identified and marked. Informed consent was obtained. The patient was then brought to the operating room and placed supine on the operating table. Anesthesia was administered and care of the head, neck, and airway was maintained by the anesthesia staff throughout the entire procedure. The patient was turned lateral with an axillary roll placed. All bony prominences were identified and padded and the cavazos bag inflated. The arm was prepped and draped in the usual sterile fashion. A surgical timeout was performed. Antibiotics were confirmed to have been given. A posterior approach to the humerus was utilized. Once the triceps fascia was incised a lateral para-tricepital approach was created. The radial nerve and cutaneous branches were identified and protected throughout the procedure. The fracture site was exposed, cleaned, and irrigated. The fracture was reduced and held provisionally. The medial butterfly fragment was clamped and fixed with 2.7 mm lag screws. The main fracture was then doubly clamped and fixed with additional 2.7 mm lag screws.. A [employer] extra-articular plate was applied with cortical screws placed proximally. A combination of cortical and locking screws were placed distally. Fluoroscopic imaging confirmed an excellent overall reduction and appropriate placement of all hardware. The radial nerve was crossing the plate at hole #2 when counting from the proximalend of the plate. Wounds were copiously irrigated with sterile saline and closed in a layered fashion. A sterile dressing was applied. Once the patient was awakened from anesthesia, they were transported to the PACU in stable condition, having tolerated surgery well with no obvious complications. Postoperative Plan Full ROM shoulder --> fingers This operative report was prepared and signed by Paco Biswas MD at 05/24/21, 6:39 PM Normal [facility] Phosphoruson 05-24-2021 Phosphate [Mass/Vol] 2.9 mg/dL Normal 2.5-4.5 [facility] Comment on above: Performed By: #### P HOS3, HEMDF, MG3, BMP3 #### [facility] [address] [place], [place] PhosphorusOrdered By: Sd Moreno on 05-24-2021 Phosphate [Mass/Vol] 2.9 mg/dL 2.5 - 4 .5 mg/dL [facility] Work Phone: Prothrombin Timeon INR 1.0 Normal 0.9-1.1 [facility] Comment on above: Result Comment: Hilario mmended Anticoagulant Therapy: SEE BELOW ----- INR of 2.0 - 3.0 : - Prophylaxis of Venous Thrombosis (high-risk surgery) - Treatment of Venous Thrombosis - Treatment of Pulmonary Embolism (Includes tissue heart valves, Acute Myocardial Infarction to prevent systemic embolism, Valvular Heart Disease, and Atrial Fibrillation) ----- INR of 2.5 - 3.5 : - Mechanical Prosthetic Valves (high risk) - If oral anticoagulant therapy is used to prevent Myocardial Infarction Performed By: #### C OVID #### [facility] [address] [place], [place] PT Coag (PPP) [Time] 11.2 s Normal 9.0-12.0 [facility] Comment on above: Result Comment: . Performed By: #### C OVID #### [facility] [address] [place], [place] Protime-INROrdered By: Juan Alberto Fontana on 05-24-2021 INR Coag (Bld) [Relative time] 1.0 {INR} [facility] Work Phone: Comment on above: Recommended Anticoag ulant Therapy: SEE BELOW ----- INR of 2.0 - 3.0 : - Prophylaxis of Venous Thrombosis (high-risk surgery) - Treatment of Venous Thrombosis - Treatment of Pulmonary Embolism (Includes tissue heart valves, Acute Myocardial Infarction to prevent systemic embolism, Valvular Heart Disease, and Atrial Fibrillation) ----- INR of 2.5 - 3.5 : - Mechanical Prosthetic Valves (high risk) - If oral anticoagulant therapy is used to prevent Myocardial Infarction PT Coag (PPP) [Time] 11.2 s 9.0 - 12.0 s [facility] Work Phone: Comment on above: . Test Performed by [employer], [facility] [place] [address] [employer] Work Phone: [employer] Work Phone: TS GELon 05-24-2021 TS GEL ABO Group: O Rh, Gel: POS Antibody Screen Gel: NEG Normal [employer] Comment on above: Performed By: #### T SGL #### [employer] TYPE AND SCREENOrdered By: Eder Fontana on 05-24-2021 ABO Grouping O [facility] Work Phone: Rh Type Positive [facility] Work Phone: Test Performed by [employer], [facility] [place] [address] [employer] Work Phone: [employer] Work Phone: XR CHEST 1 VWOrdered By: Magdalene Fontana on 05-24-2021 Patient Name: ALBIN ISSA Diagnostic Radiology ACCESSION EXAM DATE/TIME PROCEDURE ORDERING PROVIDER [id number] 05/24/2021 05:59 EDT CR Chest 1 View Frontal MD FONTANA ALEX CPT code 46837 Reason For Exam (CR Chest 1 View [...] LAURA Transcribed Date and Time: 05/24/2021 8:47 [facility] Work Phone: [facility], [facility] Incoming Radiology Results From [facility] - 05/24/2021 8:51 AM EDT Patient Name: ALBIN ISSA Diagnostic Radiology ACCESSION EXAM DATE/TIME PROCEDURE ORDERING PROVIDER [id number] 05/24/2021 05:59 EDT CR Chest 1 View Frontal MD FONTANA ALEX CPT code 93614 Reason For Exam (CR Chest 1 View [...] LAURA Transcribed Date and Time: 05/24/2021 8:47 [facility] Work Phone: [facility] Work Phone: XR ELBOW LEFT (MIN 3 VIEWS)O rdered By: Juan Alberto Fontana on 05-24-2021 Patient Name: ALBIN ISSA Diagnostic Radiology ACCESSION EXAM DATE/TIME PROCEDURE ORDERING PROVIDER [id number] 05/24/2021 05:59 EDT CR Elbow 3+ Views Left MD FONTANA ALEX CPT code 38772 Reason For Exam (CR Elbow 3+ Views [...] LAURA Transcribed Date and Time: 05/24/2021 8:44 [facility] Work Phone: [facility], [facility] Incoming Radiology Results From [facility] - 05/24/2021 8:48 AM EDT Patient [facility]: [id number] Diagnostic Radiology ACCESSION EXAM DATE/TIME PROCEDURE ORDERING PROVIDER [id number] 05/24/2021 05:59 EDT CR Elbow 3+ Views Left MD FONTANA ALEX CPT code 93426 Reason For Exam (CR Elbow 3+ Views [...] LAURA Transcribed Date and Time: 05/24/2021 8:44 [facility] Work Phone: [facility] Work Phone: XR HUMERUS LEFT (MIN 2 VIEWS )Ordered By: Sd Moreno on 05-24-2021 Patient Name: ALBIN ISSA Diagnostic Radiology ACCESSION EXAM DATE/TIME PROCEDURE ORDERING PROVIDER [id number] 05/24/2021 17:43 EDT CR Humerus 2+ Views Left 15368INDIGO FLEMINGER CPT code 06228 Reason For Exam (CR Humerus 2+ Views [...] DIANE Transcribed Date and Time: 05/24/2021 5:44 [facility] Work Phone: [place], [facility] Incoming Radiology Results From [facility] - 05/24/2021 5:47 PM EDT Patient Name: ALBIN ISSA Diagnostic Radiology ACCESSION EXAM DATE/TIME PROCEDURE ORDERING PROVIDER [id number] 05/24/2021 17:43 EDT CR Humerus 2+ Views Left INDIGO NORWOODER CPT code 45784 Reason For Exam (CR Humerus 2+ Views [...] DIANE Transcribed Date and Time: 05/24/2021 5:44 [facility] Work Phone: [facility] Work Phone: ANTONYon 04-20-2020 PROGRESS HNO ID: [id number] Author: Radha (Pt) Gigi Service: ? Author Type: Physical Therapist Type: Progress Notes Filed: 04/20/2020 9:16 AM Note Text: 04/20/2020 [facility] THER[facility] PHYSICAL THERAPY DISCONTINUANCE OF CARE Plan of Care Period: Start of Care Date: 07/06/19 Last Visit Date: 02/17/2020 Therapy Program: The following is a summary of the interventions provided for this episode of care; Therapeutic exercise, Gait training and Patient/Family/Caregi nathan Education Assessment: The following is the goal status: Goals for Episode of Care: created on 07/06/19 through 09/05/19 Goals updated on 02/17/2020. [place] in home exercise program. (Met) Patient will increase strength of R LE and core musculature to 5/5 to allow for normalized gait mechanics and perform ADLs. (Partially Met) Perform all daily activities, transfers and community ambulation independently using 1 or 2 canes in 6-8 weeks.(Partially Met) Improve postural awareness. (Met) Normal, independent gait with prosthesis and no assistive device. (Not Met)-progressing Based on the most recent progress report, patient was progressing as expected toward functional goals based on documented subjective information on progress and documented objective information regarding gait and balance. Reason for Discontinuation of Care: Patient has not returned to therapy or scheduled additional follow-up appointments. Radha Yu, PT [facility] OT/PT/Speech Visit (PTWS) ALBIN ISSA ([id number]) 1955 M Date Time Provider Department 02/17/20 9:30 AM RADHA YU (PT) PTWS Date Time Provider Department Center 02/17/2020 9:30 AM [id number] YU (PT) PTWS REPLACED BY [facility] NATAL[facility] Reason for Visit: PT Progress Note [1596] PT Discharge [752] Reason For Visit History Recorded Primary Visit Diagnosis:S/P AKA (above knee amputation), right ([facility]) [Z89.611] Allergies As of Date: 02/17/2020 (Not on File) Date Reviewed: Never Reviewed Progress Notes: Radha Yu PT 02/17/2020 12:13 PM Signed Episode Visit Count: 32 Therapist That Will Oversee The Plan Of Care: Radha Yu Start of Care Date: 07/06/19 Onset Date: 01/26/19 Plan of Care Certification Date: 02/17/20 Patient Identified by Name and Date of : Yes REHABILITATION AND SPORTS THERAPY PHYSICAL THERAPY PROGRESS REPORT PLAN OF CARE UPDATE: Assessment: Albin Issa exhibits difficulty with some weakness towards end of treatment and improvements in gait and balance. He continues to be limited with standing and walking in the community. He is progressing as expected towards his therapy goals as demonstrated by: documented subjective information on progress, documented objective information regarding gait and balance and appointment compliance (patient has had about a month lapse in treatment). He will benefit from continued skilled therapy requiring supervised progression of strengthening, balance, and advanced prosthetic gait in order to further improve LE strength, static and active balance and the most functional, prosthetic gait. Functional gains: Improved gait quality Improved balance / decreased risk of falls Increased endurance / activity tolerance Increased independence with HEP Goals for Episode of Care: created on 07/06/19 through 09/05/19 Goals updated on 02/17/2020. [place] in home exercise program. (Met) Patient will increase strength of R LE and core musculature to 5/5 to allow for normalized gait mechanics and perform ADLs. (Partially Met) Perform all daily activities, transfers and community ambulation independently using 1 or 2 canes in 6-8 weeks.(Partially Met) Improve postural awareness. (Met) Normal, independent gait with prosthesis and no assistive device. (Not Met)-progressing Planned Interventions, Frequency, and Duration: 2x/week, 8 weeks Total Number of Visits Planned: 8 Patient to be seen for Therapeutic exercise;Neuromuscula r re-education;Gait Training;Patient/Fami ly/Caregiver Education PLAN FOR NEXT VISIT: Resume progression of strengthening, balance and prosthetic gait to fully achieve goals. SUBJECTIVE: Patient Reason for Visit: Pt states he used 2 canes with smaller bases on them at home to ambulate, but felt he had to go slower and was not as stable so went back to large base quad canes. Pain: Pain Pain Level: 0 Post Treatment Pain Post Treatment Pain Level: 0 PROMIS Scales Higher is Better 12/10/2019 01/12/2020 02/14/2020 Phys Func - Score 36 (moderate dysfunction) 33 (moderate dysfunction) 36 (moderate dysfunction) Phys Func - Percentile 8 % 4 % 8 % Social Roles - Score 39 (moderate dysfunction) 47 (within normal limits) 41 (mild dysfunction) Social Role - Percentile 14 % 38 % 18 % GH Physical - Score 44.9 - - GH Physical - Percentile 31 % - - GH Mental - Score 59 - - GH Mental - Percentile 82 % - - Self-Eff Symptom - Score - - 50 (Average) Self-Eff Symptom - Percentile - - 50 % T-scores: mean of general population = 50. 5 points is clinically meaningfully difference Percentiles provide an indication of how the patient's score ranks in relation to the general population. Higher percentile rankings indicate better function/quality of life. 50th percentile is the average of the general population and indicates half of respondents had a worse score. Lower is Better 12/10/2019 01/12/2020 02/14/2020 Fatigue - Score 46 (within normal limits) 46 (within normal limits) 49 (within normal limits) Fatigue - Percentile 66 % 66 % 54 % T-scores: mean of general population = 50. 5 points is clinically meaningfully difference Percentiles provide an indication of how the patient's score ranks in relation to the general population. Higher percentile rankings indicate better function/quality of life. 50th percentile is the average of the general population and indicates half of respondents had a worse score. OBJECTIVE MEASURES WITH LEVEL OF FUNCTION: LE Strength R Hip Flexion (L2): 5/5 R Hip ABduction: 5/5 R Hip ADduction: 5/5 L Hip Flexion (L2): 5/5 L Hip ABduction: 5/5 L Hip ADduction: 5/5 L Knee Extension (L3): 4+/5 L Knee Flexion: 5/5 Functional Strength Sit/Stand: Independent with UE assist to/from one or two canes. Gait Gait Observation: Pt ambulates independently with two LBQC. He ambulates with one LBQcane and CGA of therapist x 80ft. demonstrating improved gait pattern with R LE prosthesis. Balance Static Standing Balance: B static standing balance 1min 47sec. TREATMENT: Therapeutic Exercise: 1: Standing hip abductions left 5# 1x40 and right 5# 1x40 2: Standing hip extensions right 1x40 and left 1x40 with 5# weight B. 3: Step-ups- and- over blue and green (8) step in the parallel bars with B UE assist 1x10 reps each direction. Skilled Intervention: Patient was educated in proper exercise technique and purpose for exercises. Skilled judgment was provided in selection of appropriate interventions. Correct performance of therapeutic exercises was facilitated with verbal and visual cuing. Patient education as noted. Gait Trainin: Ambulation in // bars side stepping back and forth x 7 each direction. 3: Ambulation on level with 1 quad cane with chairs positioned in hallway for safety but did not require rest breaks, x100' with direction changes. Pt demonstrated improved pattern when concentrating on lateral weight shift to advance R LE. Required CGA during amb with one cane. Skilled Intervention: Patient was provided contact guard assistance during pre-gait/gait training to prevent falls and insure safety. Facilitated proper gait cycle with the use of verbal cues for correction of gait deviations identified in the objective section above. Gait belt utilized during session for safety. Billing: [facility]: Therapeutic Exercise ([id number]): 1:1 time: 23 minutes (2 units: 23-37 mins) Gait Training ([id number]): 1:1 time: 15 minutes (1 unit: 8-22 mins) Total time: 38 minutes ZANDRA Aldana PT 04/20/2020 9:16 AM Signed 04/20/2020 [facility]ORTS THERAPY PHYSICAL THERAPY DISCONTINUANCE OF CARE Plan of Care Period: Start of Care Date: 07/06/19 Last Visit Date: 02/17/2020 Therapy Program: The following is a summary of the interventions provided for this episode of care; Therapeutic exercise, Gait training and Patient/Family/Caregi nathan Education Assessment: The following is the goal status: Goals for Episode of Care: created on 07/06/19 through 09/05/19 Goals updated on 02/17/2020. [place] in home exercise program. (Met) Patient will increase strength of R LE and core musculature to 5/5 to allow for normalized gait mechanics and perform ADLs. (Partially Met) Perform all daily activities, transfers and community ambulation independently using 1 or 2 canes in 6-8 weeks.(Partially Met) Improve postural awareness. (Met) Normal, independent gait with prosthesis and no assistive device. (Not Met)-progressing Based on the most recent progress report, patient was progressing as expected toward functional goals based on documented subjective information on progress and documented objective information regarding gait and balance. Reason for Discontinuation of Care: Patient has not returned to therapy or scheduled additional follow-up appointments. Radha Yu PT Letter Text [facility] PROGRESSon 02-17-2020 PROGRESS HNO ID: [id number] Author: Radha (Pt) Gigi Service: ? Author Type: Physical Therapist Type: Progress Notes Filed: 02/17/2020 12:13 PM Note Text: Episode Visit Count: 32 Therapist That Will Oversee The Plan Of Care: Radha Yu Start of Care Date: 07/06/19 Onset Date: 01/26/19 Plan of Care Certification Date: 02/17/20 Patient Identified by Name and Date of : Yes REHABILITATION AND SPORTS THERAPY PHYSICAL THERAPY PROGRESS REPORT PLAN OF CARE UPDATE: Assessment: Albin Issa exhibits difficulty with some weakness towards end of treatment and improvements in gait and balance. He continues to be limited with standing and walking in the community. He is progressing as expected towards his therapy goals as demonstrated by: documented subjective information on progress, documented objective information regarding gait and balance and appointment compliance (patient has had about a month lapse in treatment). He will benefit from continued skilled therapy requiring supervised progression of strengthening, balance, and advanced prosthetic gait in order to further improve LE strength, static and active balance and the most functional, prosthetic gait. Functional gains: Improved gait quality Improved balance / decreased risk of falls Increased endurance / activity tolerance Increased independence with HEP Goals for Episode of Care: created on 07/06/19 through 09/05/19 Goals updated on 02/17/2020. [place] in home exercise program. (Met) Patient will increase strength of R LE and core musculature to 5/5 to allow for normalized gait mechanics and perform ADLs. (Partially Met) Perform all daily activities, transfers and community ambulation independently using 1 or 2 canes in 6-8 weeks.(Partially Met) Improve postural awareness. (Met) Normal, independent gait with prosthesis and no assistive device. (Not Met)-progressing Planned Interventions, Frequency, and Duration: 2x/week, 8 weeks Total Number of Visits Planned: 8 Patient to be seen for Therapeutic exercise;Neuromuscula r re-education;Gait Training;Patient/Fami ly/Caregiver Education PLAN FOR NEXT VISIT: Resume progression of strengthening, balance and prosthetic gait to fully achieve goals. SUBJECTIVE: Patient Reason for Visit: Pt states he used 2 canes with smaller bases on them at home to ambulate, but felt he had to go slower and was not as stable so went back to large base quad canes. Pain: Pain Pain Level: 0 Post Treatment Pain Post Treatment Pain Level: 0 PROMIS Scales Higher is Better 12/10/2019 01/12/2020 02/14/2020 Phys Func - Score 36 (moderate dysfunction) 33 (moderate dysfunction) 36 (moderate dysfunction) Phys Func - Percentile 8 % 4 % 8 % Social Roles - Score 39 (moderate dysfunction) 47 (within normal limits) 41 (mild dysfunction) Social Role - Percentile 14 % 38 % 18 % GH Physical - Score 44.9 - - GH Physical - Percentile 31 % - - GH Mental - Score 59 - - GH Mental - Percentile 82 % - - Self-Eff Symptom - Score - - 50 (Average) Self-Eff Symptom - Percentile - - 50 % T-scores: mean of general population = 50. 5 points is clinically meaningfully difference Percentiles provide an indication of how the patient's score ranks in relation to the general population. Higher percentile rankings indicate better function/quality of life. 50th percentile is the average of the general population and indicates half of respondents had a worse score. Lower is Better 12/10/2019 01/12/2020 02/14/2020 Fatigue - Score 46 (within normal limits) 46 (within normal limits) 49 (within normal limits) Fatigue - Percentile 66 % 66 % 54 % T-scores: mean of general population = 50. 5 points is clinically meaningfully difference Percentiles provide an indication of how the patient's score ranks in relation to the general population. Higher percentile rankings indicate better function/quality of life. 50th percentile is the average of the general population and indicates half of respondents had a worse score. OBJECTIVE MEASURES WITH LEVEL OF FUNCTION: LE Strength R Hip Flexion (L2): 5/5 R Hip ABduction: 5/5 R Hip ADduction: 5/5 L Hip Flexion (L2): 5/5 L Hip ABduction: 5/5 L Hip ADduction: 5/5 L Knee Extension (L3): 4+/5 L Knee Flexion: 5/5 Functional Strength Sit/Stand: Independent with UE assist to/from one or two canes. Gait Gait Observation: Pt ambulates independently with two LBQC. He ambulates with one LBQcane and CGA of therapist x 80ft. demonstrating improved gait pattern with R LE prosthesis. Balance Static Standing Balance: B static standing balance 1min 47sec. TREATMENT: Therapeutic Exercise: 1: Standing hip abductions left 5# 1x40 and right 5# 1x40 2: Standing hip extensions right 1x40 and left 1x40 with 5# weight B. 3: Step-ups- and- over blue and green (8) step in the parallel bars with B UE assist 1x10 reps each direction. Skilled Intervention: Patient was educated in proper exercise technique and purpose for exercises. Skilled judgment was provided in selection of appropriate interventions. Correct performance of therapeutic exercises was facilitated with verbal and visual cuing. Patient education as noted. Gait Trainin: Ambulation in // bars side stepping back and forth x 7 each direction. 3: Ambulation on level with 1 quad cane with chairs positioned in hallway for safety but did not require rest breaks, x100' with direction changes. Pt demonstrated improved pattern when concentrating on lateral weight shift to advance R LE. Required CGA during amb with one cane. Skilled Intervention: Patient was provided contact guard assistance during pre-gait/gait training to prevent falls and insure safety. Facilitated proper gait cycle with the use of verbal cues for correction of gait deviations identified in the objective section above. Gait belt utilized during session for safety. Billing: [facility]: Therapeutic Exercise ([id number]): 1:1 time: 23 minutes (2 units: 23-37 mins) Gait Training ([id number]): 1:1 time: 15 minutes (1 unit: 8-22 mins) Total time: 38 minutes Radha Yu PT [facility] CNTHERAPYon 01-25-2020 CNTHERAPY OT/PT/Speech Visit (PTWS) ALBIN ISSA ([id number]) 1955 M Date Time Provider Department 01/25/20 3:30 PM RADHA YU (PT) PTWS Date Time Provider Department Center 01/25/2020 3:30 PM [id number] YU (PT) PTWS REPLACED BY [facility] Reason for Visit: Physical Therapy [503] Primary Visit Diagnosis:S/P AKA (above knee amputation), right (HCC) [Z89.611] Allergies As of Date: 01/25/2020 (Not on File) Date Reviewed: Never Reviewed Progress Notes: Radha Yu PT 01/25/2020 4:39 PM Signed Episode Visit Count: 31 Therapist That Will Oversee The Plan Of Care: Radha Yu Start of Care Date: 07/06/19 Onset Date: 01/26/19 Plan of Care Certification Date: 12/07/19 Patient Identified by Name and Date of : Yes REHABILITATION AND SPORTS THERAPY PHYSICAL THERAPY TREATMENT NOTE ASSESSMENT: Albin Issa demonstrated improvements in standing balance, progression of exercise. The patient will continue to benefit from ongoing skilled physical therapy for POC update next visit. PLAN FOR NEXT VISIT: POC update next visit. SUBJECTIVE: Patient Reason for Visit: Pt noting he feels more comfortable and uses the curb step when out in community instead of a ramp. Pain: Pain Pain Level: 0 Post Treatment Pain Post Treatment Pain Level: 0 OBJECTIVE MEASURES WITH LEVEL OF FUNCTION: Balance Static Standing Balance: Pt able to stand independently without UE assistance to doff/don his coat at beginning and end of session today. TREATMENT: Therapeutic Exercise: 1: Standing hip abductions left 5# 1x40 and right 5# 1x40 2: Standing hip extensions right 1x40 and left 1x40 with 5# weight B. 3: Step-ups- and- over blue and green (8) step in the parallel bars with B UE assist 1x10 reps each direction. 4: Balance board in parallel bars with minimal UE assist as needed. Lateral weight shifting and balancing with CGA from therapist. 5: L heel raises 2 x 40 reps in parallel bars (B UE assist). Skilled Intervention: Patient was educated in proper exercise technique and purpose for exercises. Reviewed and educated patient on additions/changes for home exercise program Skilled judgment was provided in selection of appropriate interventions. Correct performance of therapeutic exercises was facilitated with verbal and visual cuing. Patient education as noted. Gait Trainin: Ambulation in // bars side stepping back and forth x 7 each direction. 3: Ambulation on level with 1 quad cane with chairs positioned in hallway for safety but did not require rest breaks, x100' with direction changes. Pt demonstrated improved pattern when concentrating on lateral weight shift to advance R LE. Required CGA during amb with one cane. Skilled Intervention: Patient was provided contact guard assistance during pre-gait/gait training to prevent falls and insure safety. Facilitated proper gait cycle with the use of verbal cues for correction of gait deviations identified in the objective section above. Gait belt utilized during session for safety. Billing: [facility]: Therapeutic Exercise ([id number]): 1:1 time: 32 minutes (2 units: 23-37 mins) Gait Training ([id number]): 1:1 time: 18 minutes (1 unit: 8-22 mins) Total time: 50 minutes Radha Yu, PT [facility] PROGRESSon 01-25-2020 PROGRESS HNO ID: [id number] Author: Radha (Pt) Gigi Service: ? Author Type: Physical Therapist Type: Progress Notes Filed: 01/25/2020 4:39 PM Note Text: Episode Visit Count: 31 Therapist That Will Oversee The Plan Of Care: Gigi Radha Start of Care Date: 07/06/19 Onset Date: 01/26/19 Plan of Care Certification Date: 12/07/19 Patient Identified by Name and Date of : Yes REHABILITATION AND SPORTS THERAPY PHYSICAL THERAPY TREATMENT NOTE ASSESSMENT: Albin Issa demonstrated improvements in standing balance, progression of exercise. The patient will continue to benefit from ongoing skilled physical therapy for POC update next visit. PLAN FOR NEXT VISIT: POC update next visit. SUBJECTIVE: Patient Reason for Visit: Pt noting he feels more comfortable and uses the curb step when out in community instead of a ramp. Pain: Pain Pain Level: 0 Post Treatment Pain Post Treatment Pain Level: 0 OBJECTIVE MEASURES WITH LEVEL OF FUNCTION: Balance Static Standing Balance: Pt able to stand independently without UE assistance to doff/don his coat at beginning and end of session today. TREATMENT: Therapeutic Exercise: 1: Standing hip abductions left 5# 1x40 and right 5# 1x40 2: Standing hip extensions right 1x40 and left 1x40 with 5# weight B. 3: Step-ups- and- over blue and green (8) step in the parallel bars with B UE assist 1x10 reps each direction. 4: Balance board in parallel bars with minimal UE assist as needed. Lateral weight shifting and balancing with CGA from therapist. 5: L heel raises 2 x 40 reps in parallel bars (B UE assist). Skilled Intervention: Patient was educated in proper exercise technique and purpose for exercises. Reviewed and educated patient on additions/changes for home exercise program Skilled judgment was provided in selection of appropriate interventions. Correct performance of therapeutic exercises was facilitated with verbal and visual cuing. Patient education as noted. Gait Trainin: Ambulation in // bars side stepping back and forth x 7 each direction. 3: Ambulation on level with 1 quad cane with chairs positioned in hallway for safety but did not require rest breaks, x100' with direction changes. Pt demonstrated improved pattern when concentrating on lateral weight shift to advance R LE. Required CGA during amb with one cane. Skilled Intervention: Patient was provided contact guard assistance during pre-gait/gait training to prevent falls and insure safety. Facilitated proper gait cycle with the use of verbal cues for correction of gait deviations identified in the objective section above. Gait belt utilized during session for safety. Billing: [facility]: Therapeutic Exercise ([id number]): 1:1 time: 32 minutes (2 units: 23-37 mins) Gait Training ([id number]): 1:1 time: 18 minutes (1 unit: 8-22 mins) Total time: 50 minutes Radha Yu PT [facility] CNTHERAPYon 01-22-2020 CNTHERAPY OT/PT/Speech Visit (PTWS) ALBIN ISSA ([id number]) 1955 M Date Time Provider Department 01/22/20 1:45 PM RADHA YU (PT) PTWS Date Time Provider Department Center 01/22/2020 1:45 PM [id number] YU (PT) PTWS REPLACED BY [facility] Reason for Visit: Physical Therapy [503] Primary Visit Diagnosis:S/P AKA (above knee amputation), right (HCC) [Z89.611] Allergies As of Date: 01/22/2020 (Not on File) Date Reviewed: Never Reviewed Progress Notes: Radha Yu PT 01/22/2020 4:53 PM Signed Episode Visit Count: 30 Therapist That Will Oversee The Plan Of Care: Radha Yu Start of Care Date: 07/06/19 Onset Date: 01/26/19 Plan of Care Certification Date: 12/07/19 Patient Identified by Name and Date of : Yes REHABILITATION AND SPORTS THERAPY PHYSICAL THERAPY TREATMENT NOTE ASSESSMENT: Albin Issa demonstrated improvements in gait pattern and khoi during both independent ambulation with 2 canes and ambulation with one cane with therapist assist. The patient will continue to benefit from ongoing skilled physical therapy for supervised progression of strength, balance and prosthetic gait. PLAN FOR NEXT VISIT: Continue progression of exercise (strength and balance) and gait. SUBJECTIVE: Patient Reason for Visit: Pt stating he saw the geospatial intelligence analyst again and was instructed to use 5 ply sock versus the 1ply he was using and feels this made a big difference in maintaining the fit of his prosthesis. He notes it feels more secure when walking now. Pain: Pain Pain Level: 0 Post Treatment Pain Post Treatment Pain Level: 0 OBJECTIVE MEASURES WITH LEVEL OF FUNCTION: Gait Gait Observation: Pt demonstrated a more smoother gait pattern and increased khoi during both independent ambulation with 2 canes and ambulation with one cane with therapist assist. TREATMENT: Therapeutic Exercise: 1: Standing hip abductions left 5# 1x40 and right 5# 1x40 2: Standing hip extensions right 1x40 and left 1x40 with 5# weight B. 3: Step-ups- and- over blue and green (8) step in the parallel bars with B UE assist 1x10 reps each direction. 4: Balance board in parallel bars with UE assist as needed. Lateral weight shifting and balancing with CGA from therapist. Skilled Intervention: Patient was educated in proper exercise technique and purpose for exercises. Reviewed and educated patient on additions/changes for home exercise program Skilled judgment was provided in selection of appropriate interventions. Correct performance of therapeutic exercises was facilitated with verbal and visual cuing. Patient education as noted. Gait Trainin: Ambulation in // bars side stepping back and forth x 7 each direction. 3: Ambulation on level with 1 quad cane with chairs positioned in hallway for safety but did not require rest breaks, x100' with direction changes. Pt demonstrated improved smoothness of gait and increased khoi. Required CGA during amb with one cane. Skilled Intervention: Patient was provided contact guard assistance during pre-gait/gait training to prevent falls and insure safety. Gait belt utilized during session for safety. Skilled judgment used to assess proper use of assistive device. Billing: [facility]: Therapeutic Exercise ([id number]): 1:1 time: 28 minutes (2 units: 23-37 mins) Gait Training ([id number]): 1:1 time: 15 minutes (1 unit: 8-22 mins) Total time: 43 minutes Radha Yu PT [facility] PROGRESSon 01-22-2020 PROGRESS HNO ID: [id number] Author: Radha (Pt) Gigi Service: ? Author Type: Physical Therapist Type: Progress Notes Filed: 01/22/2020 4:53 PM Note Text: Episode Visit Count: 30 Therapist That Will Oversee The Plan Of Care: Radha Yu Start of Care Date: 07/06/19 Onset Date: 01/26/19 Plan of Care Certification Date: 12/07/19 Patient Identified by Name and Date of : Yes REHABILITATION AND SPORTS THERAPY PHYSICAL THERAPY TREATMENT NOTE ASSESSMENT: Albin Issa demonstrated improvements in gait pattern and khoi during both independent ambulation with 2 canes and ambulation with one cane with therapist assist. The patient will continue to benefit from ongoing skilled physical therapy for supervised progression of strength, balance and prosthetic gait. PLAN FOR NEXT VISIT: Continue progression of exercise (strength and balance) and gait. SUBJECTIVE: Patient Reason for Visit: Pt stating he saw the geospatial intelligence analyst again and was instructed to use 5 ply sock versus the 1ply he was using and feels this made a big difference in maintaining the fit of his prosthesis. He notes it feels more secure when walking now. Pain: Pain Pain Level: 0 Post Treatment Pain Post Treatment Pain Level: 0 OBJECTIVE MEASURES WITH LEVEL OF FUNCTION: Gait Gait Observation: Pt demonstrated a more smoother gait pattern and increased khoi during both independent ambulation with 2 canes and ambulation with one cane with therapist assist. TREATMENT: Therapeutic Exercise: 1: Standing hip abductions left 5# 1x40 and right 5# 1x40 2: Standing hip extensions right 1x40 and left 1x40 with 5# weight B. 3: Step-ups- and- over blue and green (8) step in the parallel bars with B UE assist 1x10 reps each direction. 4: Balance board in parallel bars with UE assist as needed. Lateral weight shifting and balancing with CGA from therapist. Skilled Intervention: Patient was educated in proper exercise technique and purpose for exercises. Reviewed and educated patient on additions/changes for home exercise program Skilled judgment was provided in selection of appropriate interventions. Correct performance of therapeutic exercises was facilitated with verbal and visual cuing. Patient education as noted. Gait Trainin: Ambulation in // bars side stepping back and forth x 7 each direction. 3: Ambulation on level with 1 quad cane with chairs positioned in hallway for safety but did not require rest breaks, x100' with direction changes. Pt demonstrated improved smoothness of gait and increased khoi. Required CGA during amb with one cane. Skilled Intervention: Patient was provided contact guard assistance during pre-gait/gait training to prevent falls and insure safety. Gait belt utilized during session for safety. Skilled judgment used to assess proper use of assistive device. Billing: [facility]: Therapeutic Exercise ([id number]): 1:1 time: 28 minutes (2 units: 23-37 mins) Gait Training ([id number]): 1:1 time: 15 minutes (1 unit: 8-22 mins) Total time: 43 minutes ZANDRA Aldana [facility] CNTHERAPYon 01-18-2020 CNTHERAPY OT/PT/Speech Visit (PTWS) ALBIN ISSA ([id number]) 1955 M Date Time Provider Department 01/18/20 3:30 PM RADHA YU (PT) PTWS Date Time Provider Department Center 01/18/2020 3:30 PM [id number] YU (PT) PTWS REPLACED BY [facility] Reason for Visit: Physical Therapy [503] Primary Visit Diagnosis:S/P AKA (above knee amputation), right (HCC) [Z89.611] Allergies As of Date: 01/18/2020 (Not on File) Date Reviewed: Never Reviewed Progress Notes: Radha Yu, PT 01/18/2020 4:45 PM Signed Episode Visit Count: 29 Therapist That Will Oversee The Plan Of Care: Radha Yu Start of Care Date: 07/06/19 Onset Date: 01/26/19 Plan of Care Certification Date: 12/07/19 Patient Identified by Name and Date of : Yes REHABILITATION AND SPORTS THERAPY PHYSICAL THERAPY TREATMENT NOTE ASSESSMENT: Albin Issa demonstrated improvements in balance activities and gait. The patient will continue to benefit from ongoing skilled physical therapy for strength, balance and prosthetic gait. PLAN FOR NEXT VISIT: Continue progression of exercise (strength and balance) and gait. SUBJECTIVE: Patient Reason for Visit: Pt states he can see a difference every week since getting his new prosthesis. States it is encouraging to see improvements more quickly. Pain: Pain Pain Level: 0 Post Treatment Pain Post Treatment Pain Level: 0 OBJECTIVE MEASURES WITH LEVEL OF FUNCTION: TREATMENT: Therapeutic Exercise: 1: Standing hip abductions left 5# 1x40 and right 5# 1x40 2: Standing hip extensions right 1x40 and left 1x40 with 5# weight B. 3: Step-ups- and- over blue and green (8) step in the parallel bars with B UE assist 1x10 reps each direction. 4: Balance board in parallel bars with UE assist the majority of the time. Lateral weight shifting and balancing with CGA from therapist. Skilled Intervention: Patient was educated in proper exercise technique and purpose for exercises. Skilled judgment was provided in selection of appropriate interventions. Correct performance of therapeutic exercises was facilitated with verbal cuing. Patient education as noted. Gait Trainin: Ambulation in // bars side stepping back and forth x 6 each direction. 3: Ambulation on level with 1 quad cane with chairs positioned in hallway for safety but did not require rest breaks, x100' with direction changes. Pt demonstrated improved smoothness of gait and step pattern with a few corrections with R LE step. Required CGA during amb with one cane. Skilled Intervention: Patient was provided minimal assistance, contact guard assistance during pre-gait/gait training to prevent falls and insure safety. Facilitated proper gait cycle with the use of verbal cues for correction of gait deviations identified in the objective section above. Gait belt utilized during session for safety. Billing: [facility]: Therapeutic Exercise ([id number]): 1:1 time: 25 minutes (2 units: 23-37 mins) Gait Training ([id number]): 1:1 time: 15 minutes (1 unit: 8-22 mins) Total time: 40 minutes Radha Yu PT [facility] PROGRESSon 01-18-2020 PROGRESS HNO ID: [id number] Author: Radha (Pt) Gigi Service: ? Author Type: Physical Therapist Type: Progress Notes Filed: 01/18/2020 4:45 PM Note Text: Episode Visit Count: 29 Therapist That Will Oversee The Plan Of Care: Radha Yu Start of Care Date: 07/06/19 Onset Date: 01/26/19 Plan of Care Certification Date: 12/07/19 Patient Identified by Name and Date of : Yes REHABILITATION AND SPORTS THERAPY PHYSICAL THERAPY TREATMENT NOTE ASSESSMENT: Albin Issa demonstrated improvements in balance activities and gait. The patient will continue to benefit from ongoing skilled physical therapy for strength, balance and prosthetic gait. PLAN FOR NEXT VISIT: Continue progression of exercise (strength and balance) and gait. SUBJECTIVE: Patient Reason for Visit: Pt states he can see a difference every week since getting his new prosthesis. States it is encouraging to see improvements more quickly. Pain: Pain Pain Level: 0 Post Treatment Pain Post Treatment Pain Level: 0 OBJECTIVE MEASURES WITH LEVEL OF FUNCTION: TREATMENT: Therapeutic Exercise: 1: Standing hip abductions left 5# 1x40 and right 5# 1x40 2: Standing hip extensions right 1x40 and left 1x40 with 5# weight B. 3: Step-ups- and- over blue and green (8) step in the parallel bars with B UE assist 1x10 reps each direction. 4: Balance board in parallel bars with UE assist the majority of the time. Lateral weight shifting and balancing with CGA from therapist. Skilled Intervention: Patient was educated in proper exercise technique and purpose for exercises. Skilled judgment was provided in selection of appropriate interventions. Correct performance of therapeutic exercises was facilitated with verbal cuing. Patient education as noted. Gait Trainin: Ambulation in // bars side stepping back and forth x 6 each direction. 3: Ambulation on level with 1 quad cane with chairs positioned in hallway for safety but did not require rest breaks, x100' with direction changes. Pt demonstrated improved smoothness of gait and step pattern with a few corrections with R LE step. Required CGA during amb with one cane. Skilled Intervention: Patient was provided minimal assistance, contact guard assistance during pre-gait/gait training to prevent falls and insure safety. Facilitated proper gait cycle with the use of verbal cues for correction of gait deviations identified in the objective section above. Gait belt utilized during session for safety. Billing: [facility]: Therapeutic Exercise ([id number]): 1:1 time: 25 minutes (2 units: 23-37 mins) Gait Training ([id number]): 1:1 time: 15 minutes (1 unit: 8-22 mins) Total time: 40 minutes Radha Yu PT [facility] CNTHERAPYon 01-15-2020 CNTHERAPY OT/PT/Speech Visit (PTWS) ALBIN ISSA ([id number]) 1955 M Date Time Provider Department 01/15/20 1:45 PM RADHA YU (PT) PTWS Date Time Provider Department Center 01/15/2020 1:45 PM [id number] YU (PT) PTWS REPLACED BY [facility] Reason for Visit: Physical Therapy [503] Primary Visit Diagnosis:S/P AKA (above knee amputation), right (HCC) [Z89.611] Allergies As of Date: 01/15/2020 (Not on File) Date Reviewed: Never Reviewed Progress Notes: Radha Yu PT 01/15/2020 3:54 PM Signed Episode Visit Count: 28 Therapist That Will Oversee The Plan Of Care: Radha Yu Start of Care Date: 07/06/19 Onset Date: 01/26/19 Plan of Care Certification Date: 12/07/19 Patient Identified by Name and Date of : Yes REHABILITATION AND SPORTS THERAPY PHYSICAL THERAPY TREATMENT NOTE ASSESSMENT: Albin Issa demonstrated improvements in subjective reports of LE strength and balance. The patient will continue to benefit from ongoing skilled physical therapy for strength, balance and gait advancement. PLAN FOR NEXT VISIT: May add more balance activities, hip hiking, and continue with strengthening and gait. SUBJECTIVE: Patient Reason for Visit: Pt states he can feel that his legs are stronger because at times he has been able to stand for a bit at home before he grabs the canes. Pain: Pain Pain Level: 0 Post Treatment Pain Post Treatment Pain Level: 0 OBJECTIVE MEASURES WITH LEVEL OF FUNCTION: Gait Gait Observation: Pt ambulates with one quad cane and CGA demonstrating improved fit of prosthesis as he did not require to stop and adjust it during treatment. TREATMENT: Therapeutic Exercise: 1: Standing hip abductions left 5# 1x40 and right 5# 1x40 2: Standing hip extensions right 1x40 and left 1x40 with 5# weight B. 3: Step-ups- and- over blue and green (8) step in the parallel bars with B UE assist 1x10 reps each direction. 4: Single leg balancing in parallel bars to fatigue x 2 with each leg Skilled Intervention: Patient was educated in proper exercise technique and purpose for exercises. Skilled judgment was provided in selection of appropriate interventions. Correct performance of therapeutic exercises was facilitated with verbal cuing. Patient education as noted. Gait Trainin: Ambulation in // bars side stepping back and forth x 5 each direction. 3: Ambulation on level with 1 quad cane with chairs positioned in hallway for safety and rest breaks 100' with direction changes. Pt demosntrated improved balance and prosthetic function today and did not need to stop to adjust the fit. Required only CGA during amb with one cane. Skilled Intervention: Patient was provided contact guard assistance during pre-gait/gait training to prevent falls and insure safety. Facilitated proper gait cycle with the use of verbal cues for correction of gait deviations identified in the objective section above. Gait belt utilized during session for safety. Skilled judgment used to assess proper use of assistive device. Billing: [facility]: Therapeutic Exercise ([id number]): 1:1 time: 27 minutes (2 units: 23-37 mins) Gait Training ([id number]): 1:1 time: 15 minutes (1 unit: 8-22 mins) Total time: 42 minutes Radha ZANDRA Yu [facility] PROGRESSon 01-15-2020 PROGRESS HNO ID: [id number] Author: Radha (Pt) Gigi Service: ? Author Type: Physical Therapist Type: Progress Notes Filed: 01/15/2020 3:54 PM Note Text: Episode Visit Count: 28 Therapist That Will Oversee The Plan Of Care: Radha Yu Start of Care Date: 07/06/19 Onset Date: 01/26/19 Plan of Care Certification Date: 12/07/19 Patient Identified by Name and Date of : Yes REHABILITATION AND SPORTS THERAPY PHYSICAL THERAPY TREATMENT NOTE ASSESSMENT: Albin Issa demonstrated improvements in subjective reports of LE strength and balance. The patient will continue to benefit from ongoing skilled physical therapy for strength, balance and gait advancement. PLAN FOR NEXT VISIT: May add more balance activities, hip hiking, and continue with strengthening and gait. SUBJECTIVE: Patient Reason for Visit: Pt states he can feel that his legs are stronger because at times he has been able to stand for a bit at home before he grabs the canes. Pain: Pain Pain Level: 0 Post Treatment Pain Post Treatment Pain Level: 0 OBJECTIVE MEASURES WITH LEVEL OF FUNCTION: Gait Gait Observation: Pt ambulates with one quad cane and CGA demonstrating improved fit of prosthesis as he did not require to stop and adjust it during treatment. TREATMENT: Therapeutic Exercise: 1: Standing hip abductions left 5# 1x40 and right 5# 1x40 2: Standing hip extensions right 1x40 and left 1x40 with 5# weight B. 3: Step-ups- and- over blue and green (8) step in the parallel bars with B UE assist 1x10 reps each direction. 4: Single leg balancing in parallel bars to fatigue x 2 with each leg Skilled Intervention: Patient was educated in proper exercise technique and purpose for exercises. Skilled judgment was provided in selection of appropriate interventions. Correct performance of therapeutic exercises was facilitated with verbal cuing. Patient education as noted. Gait Trainin: Ambulation in // bars side stepping back and forth x 5 each direction. 3: Ambulation on level with 1 quad cane with chairs positioned in hallway for safety and rest breaks 100' with direction changes. Pt demosntrated improved balance and prosthetic function today and did not need to stop to adjust the fit. Required only CGA during amb with one cane. Skilled Intervention: Patient was provided contact guard assistance during pre-gait/gait training to prevent falls and insure safety. Facilitated proper gait cycle with the use of verbal cues for correction of gait deviations identified in the objective section above. Gait belt utilized during session for safety. Skilled judgment used to assess proper use of assistive device. Billing: [facility]: Therapeutic Exercise ([id number]): 1:1 time: 27 minutes (2 units: 23-37 mins) Gait Training ([id number]): 1:1 time: 15 minutes (1 unit: 8-22 mins) Total time: 42 minutes Radha Yu PT [facility] CNTHERAPYon 01-04-2020 CNTHERAPY OT/PT/Speech Visit (PTWS) ALBIN ISSA ([id number]) 1955 M Date Time Provider Department 01/04/20 3:30 PM RADHA YU (PT) PTWS Date Time Provider Department Center 01/04/2020 3:30 PM [id number] YU (PT) PTWS REPLACED BY [facility] Reason for Visit: PT Progress Note [[id number]] Reason For Visit History Recorded Primary Visit Diagnosis:S/P AKA (above knee amputation), right (HCC) [Z89.611] Allergies As of Date: 01/04/2020 (Not on File) Date Reviewed: Never Reviewed Progress Notes: Radha Yu PT 01/04/2020 7:11 PM Signed Episode Visit Count: 27 Therapist That Will Oversee The Plan Of Care: Radha Yu Start of Care Date: 07/06/19 Onset Date: 01/26/19 Plan of Care Certification Date: 12/07/19 Patient Identified by Name and Date of : Yes REHABILITATION AND SPORTS THERAPY PHYSICAL THERAPY PROGRESS REPORT PLAN OF CARE UPDATE: Assessment: Albin Issa exhibits improvements in balance, gait and function. He continues to be limited with walking in the community. He is progressing as expected towards his therapy goals as demonstrated by: documented subjective information on progress and documented objective information regarding gait, strength and overall function. He will benefit from continued skilled therapy requiring supervised progression of exercise and gait instruction in order to further improve strength, balance and gait. Functional gains: Improved gait quality Improved ability to perform transfers Improved balance / decreased risk of falls Increased endurance / activity tolerance Increased independence with HEP Increased strength Goals for Episode of Care: created on 07/06/19 through 09/05/19 Goals updated on 01/04/2020. [place] in home exercise program. (Met) Patient will increase strength of R LE and core musculature to 5/5 to allow for normalized gait mechanics and perform ADLs. (Met) Perform all daily activities, transfers and community ambulation independently using 1 or 2 canes in 6-8 weeks.(Partially Met) Improve postural awareness. (Met) Normal, independent gait with prosthesis and no assistive device. (Not Met)-progressing Planned Interventions, Frequency, and Duration: 2x/week, 4 weeks Total Number of Visits Planned: 8 Patient to be seen for Therapeutic exercise;Neuromuscula r re-education;Gait Training;Patient/Fami ly/Caregiver Education PLAN FOR NEXT VISIT: Continue to work on hip/LE strengthening, balance (single leg), and progression of gait to use of one cane or no assistive device. SUBJECTIVE: Patient Reason for Visit: Pt states he is not sure his prosthesis is fitting correctly with only wearing one sock. He feels it is not clicking all the way in and therefore feels longer and may be why he was catching his shoe when walking. He states he has an appt with geospatial intelligence analyst this and will discuss with him. Pain: Pain Pain Level: 0 Post Treatment Pain Post Treatment Pain Level: 0 PROMIS Scales Higher is Better 12/10/2019 Phys Func - Score 36 (moderate dysfunction) Phys Func - Percentile 8 % Social Roles - Score 39 (moderate dysfunction) Social Role - Percentile 14 % GH Physical - Score 44.9 GH Physical - Percentile 31 % GH Mental - Score 59 GH Mental - Percentile 82 % T-scores: mean of general population = 50. 5 points is clinically meaningfully difference Percentiles provide an indication of how the patient's score ranks in relation to the general population. Higher percentile rankings indicate better function/quality of life. 50th percentile is the average of the general population and indicates half of respondents had a worse score. Lower is Better 12/10/2019 Fatigue - Score 46 (within normal limits) Fatigue - Percentile 66 % T-scores: mean of general population = 50. 5 points is clinically meaningfully difference Percentiles provide an indication of how the patient's score ranks in relation to the general population. Higher percentile rankings indicate better function/quality of life. 50th percentile is the average of the general population and indicates half of respondents had a worse score. OBJECTIVE MEASURES WITH LEVEL OF FUNCTION: LE Strength R Hip Flexion (L2): 5/5 R Hip ABduction: 5/5 R Hip ADduction: 5/5 L Hip Flexion (L2): 5/5 L Hip ABduction: 5/5 L Hip ADduction: 5/5 L Knee Extension (L3): 5/5 L Knee Flexion: 5/5 Functional Strength Sit/Stand: Independent with UE assist and 1 or 2 canes. Improved ease of knee flex/ext with new prosthesis. Gait Gait Observation: Pt ambulates independently iwth 2 quad canes. Pt ambulates with CGA to mod A using one quad cane. Balance Static Standing Balance: B over 2 min TREATMENT: Therapeutic Exercise: 1: Standing hip abductions left 5# 1x40 and right 5# 1x40 2: Standing hip extensions right 1x40 and left 1x40 with 5# weight B. 3: Step-ups- and- over blue and green (8) step in the parallel bars with B UE assist 1x10 reps each direction. Skilled Intervention: Patient was educated in proper exercise technique and purpose for exercises. Skilled judgment was provided in selection of appropriate interventions. Correct performance of therapeutic exercises was facilitated with verbal and visual cuing. Patient education as noted. Gait Trainin: Ambulation in // bars side stepping back and forth x 3 each direction. 3: Ambulation on level with 1 quad cane with chairs positioned in hallway for safety and rest breaks 100' with direction changes. Minimal verbal cues for proper step length and insure R LE clears the floor to advance leg. Pt did not feel comfortable continuing d/t inconsistent fit of prosthesis today. Pt readjusted prior to leaving dept. Skilled Intervention: Patient was provided moderate assistance, contact guard assistance, supervision during pre-gait/gait training to prevent falls and insure safety. Facilitated proper gait cycle with the use of verbal and visual cues for correction of gait deviations identified in the objective section above. Gait belt utilized during session for safety. Billing: [facility]: Therapeutic Exercise ([id number]): 1:1 time: 25 minutes (2 units: 23-37 mins) Gait Training ([id number]): 1:1 time: 15 minutes (1 unit: 8-22 mins) Total time: 40 minutes Radha Yu PT [facility] PROGRESSon 01-04-2020 PROGRESS HNO ID: [id number] Author: Radha (Pt) Gigi Service: ? Author Type: Physical Therapist Type: Progress Notes Filed: 01/04/2020 7:11 PM Note Text: Episode Visit Count: 27 Therapist That Will Oversee The Plan Of Care: Rdaha Yu Start of Care Date: 07/06/19 Onset Date: 01/26/19 Plan of Care Certification Date: 12/07/19 Patient Identified by Name and Date of : Yes REHABILITATION AND SPORTS THERAPY PHYSICAL THERAPY PROGRESS REPORT PLAN OF CARE UPDATE: Assessment: Albin Issa exhibits improvements in balance, gait and function. He continues to be limited with walking in the community. He is progressing as expected towards his therapy goals as demonstrated by: documented subjective information on progress and documented objective information regarding gait, strength and overall function. He will benefit from continued skilled therapy requiring supervised progression of exercise and gait instruction in order to further improve strength, balance and gait. Functional gains: Improved gait quality Improved ability to perform transfers Improved balance / decreased risk of falls Increased endurance / activity tolerance Increased independence with HEP Increased strength Goals for Episode of Care: created on 07/06/19 through 09/05/19 Goals updated on 01/04/2020. [place] in home exercise program. (Met) Patient will increase strength of R LE and core musculature to 5/5 to allow for normalized gait mechanics and perform ADLs. (Met) Perform all daily activities, transfers and community ambulation independently using 1 or 2 canes in 6-8 weeks.(Partially Met) Improve postural awareness. (Met) Normal, independent gait with prosthesis and no assistive device. (Not Met)-progressing Planned Interventions, Frequency, and Duration: 2x/week, 4 weeks Total Number of Visits Planned: 8 Patient to be seen for Therapeutic exercise;Neuromuscula r re-education;Gait Training;Patient/Fami ly/Caregiver Education PLAN FOR NEXT VISIT: Continue to work on hip/LE strengthening, balance (single leg), and progression of gait to use of one cane or no assistive device. SUBJECTIVE: Patient Reason for Visit: Pt states he is not sure his prosthesis is fitting correctly with only wearing one sock. He feels it is not clicking all the way in and therefore feels longer and may be why he was catching his shoe when walking. He states he has an appt with geospatial intelligence analyst this and will discuss with him. Pain: Pain Pain Level: 0 Post Treatment Pain Post Treatment Pain Level: 0 PROMIS Scales Higher is Better 12/10/2019 Phys Func - Score 36 (moderate dysfunction) Phys Func - Percentile 8 % Social Roles - Score 39 (moderate dysfunction) Social Role - Percentile 14 % GH Physical - Score 44.9 GH Physical - Percentile 31 % GH Mental - Score 59 GH Mental - Percentile 82 % T-scores: mean of general population = 50. 5 points is clinically meaningfully difference Percentiles provide an indication of how the patient's score ranks in relation to the general population. Higher percentile rankings indicate better function/quality of life. 50th percentile is the average of the general population and indicates half of respondents had a worse score. Lower is Better 12/10/2019 Fatigue - Score 46 (within normal limits) Fatigue - Percentile 66 % T-scores: mean of general population = 50. 5 points is clinically meaningfully difference Percentiles provide an indication of how the patient's score ranks in relation to the general population. Higher percentile rankings indicate better function/quality of life. 50th percentile is the average of the general population and indicates half of respondents had a worse score. OBJECTIVE MEASURES WITH LEVEL OF FUNCTION: LE Strength R Hip Flexion (L2): 5/5 R Hip ABduction: 5/5 R Hip ADduction: 5/5 L Hip Flexion (L2): 5/5 L Hip ABduction: 5/5 L Hip ADduction: 5/5 L Knee Extension (L3): 5/5 L Knee Flexion: 5/5 Functional Strength Sit/Stand: Independent with UE assist and 1 or 2 canes. Improved ease of knee flex/ext with new prosthesis. Gait Gait Observation: Pt ambulates independently iwth 2 quad canes. Pt ambulates with CGA to mod A using one quad cane. Balance Static Standing Balance: B over 2 min TREATMENT: Therapeutic Exercise: 1: Standing hip abductions left 5# 1x40 and right 5# 1x40 2: Standing hip extensions right 1x40 and left 1x40 with 5# weight B. 3: Step-ups- and- over blue and green (8) step in the parallel bars with B UE assist 1x10 reps each direction. Skilled Intervention: Patient was educated in proper exercise technique and purpose for exercises. Skilled judgment was provided in selection of appropriate interventions. Correct performance of therapeutic exercises was facilitated with verbal and visual cuing. Patient education as noted. Gait Trainin: Ambulation in // bars side stepping back and forth x 3 each direction. 3: Ambulation on level with 1 quad cane with chairs positioned in hallway for safety and rest breaks 100' with direction changes. Minimal verbal cues for proper step length and insure R LE clears the floor to advance leg. Pt did not feel comfortable continuing d/t inconsistent fit of prosthesis today. Pt readjusted prior to leaving dept. Skilled Intervention: Patient was provided moderate assistance, contact guard assistance, supervision during pre-gait/gait training to prevent falls and insure safety. Facilitated proper gait cycle with the use of verbal and visual cues for correction of gait deviations identified in the objective section above. Gait belt utilized during session for safety. Billing: [facility]: Therapeutic Exercise ([id number]): 1:1 time: 25 minutes (2 units: 23-37 mins) Gait Training ([id number]): 1:1 time: 15 minutes (1 unit: 8-22 mins) Total time: 40 minutes Radha Yu PT [facility] CNTHERAPYon 12-30-2019 CNTHERAPY OT/PT/Speech Visit (PTWS) LUIS MANUELALBIN ([id number]) 1955 M Date Time Provider Department 12/30/19 10:15 AM RADHA YU (PT) PTWS Date Time Provider Department Center 12/30/2019 10:15 AM [id number] YU (PT) PTWS REPLACED BY [facility] Reason for Visit: Physical Therapy [503] Primary Visit Diagnosis:S/P AKA (above knee amputation), right ([facility]) [Z89.611] Allergies As of Date: 12/30/2019 (Not on File) Date Reviewed: Never Reviewed Progress Notes: Radha Yu PT 12/30/2019 1:42 PM Signed Episode Visit Count: 26 Therapist That Will Oversee The Plan Of Care: Radha Yu Start of Care Date: 07/06/19 Onset Date: 01/26/19 Plan of Care Certification Date: 12/07/19 Patient Identified by Name and Date of : Yes REHABILITATION AND SPORTS THERAPY PHYSICAL THERAPY TREATMENT NOTE ASSESSMENT: Albin Zazueta Luis Manuel demonstrated improvements in gait. The patient will continue to benefit from ongoing skilled physical therapy for strengthening and gait training with prosthesis. PLAN FOR NEXT VISIT: POC update. SUBJECTIVE: Patient Reason for Visit: Pt reports he has been startin got use only one cane when ambulating in his home, but continues to use 2 canes when out of the home. He reports he is using the thinnest sock he has for his prosthesis, but is plesaed with the improvements from his original prosthesis. Pain: Pain Pain Level: 0 Post Treatment Pain Post Treatment Pain Level: 0 OBJECTIVE MEASURES WITH LEVEL OF FUNCTION: Gait Gait Observation: Pt demosntrates improved gait pattern using 3 point gait with one quad cane during treatment today noting more smooth transition throughout the gait cycle. TREATMENT: Therapeutic Exercise: 1: Standing hip abductions left 4# 1x40 and right 5# 1x40 2: Standing hip extensions right 1x40 and left 1x40 with 5# weight B. 3: Step-ups- and- over blue and green (8) step in the parallel bars with B UE assist 1x10 reps each direction. (no rest break) Skilled Intervention: Patient was educated in proper exercise technique and purpose for exercises. Skilled judgment was provided in selection of appropriate interventions. Correct performance of therapeutic exercises was facilitated with verbal and visual cuing. Patient education as noted. Gait Trainin: Ambulation in // bars side stepping back and forth x 7 each direction. Pt had one episode of loss of balance d/t catching R heel on linoleum. Therapist moderate assist to recover balance. 3: Ambulation on level with 1 quad cane with chairs positioned in hallway for safety and rest breaks 150' x 2 with direction changes. Verbal cues for proper step length and insure R LE clears the floor to advance leg. 4: Verbal cues at times for sit <> stand technique to improve safety. Skilled Intervention: Patient was provided moderate assistance, contact guard assistance during pre-gait/gait training to prevent falls and insure safety. Facilitated proper gait cycle with the use of verbal and visual cues for correction of gait deviations identified in the objective section above. Gait belt utilized during session for safety. Skilled judgment used to assess proper use of assistive device. Billing: [facility]: Therapeutic Exercise ([id number]): 1:1 time: 15 minutes (1 unit: 8-22 mins) Gait Training ([id number]): 1:1 time: 28 minutes (2 units: 23-37 mins) Total time: 43 minutes Radha Yu PT [facility] PROGRESSon 12-30-2019 PROGRESS HNO ID: [id number] Author: Radha RichmondPt) Gigi Service: ? Author Type: Physical Therapist Type: Progress Notes Filed: 12/30/2019 1:42 PM Note Text: Episode Visit Count: 26 Therapist That Will Oversee The Plan Of Care: Radha Yu Start of Care Date: 07/06/19 Onset Date: 01/26/19 Plan of Care Certification Date: 12/07/19 Patient Identified by Name and Date of : Yes REHABILITATION AND SPORTS THERAPY PHYSICAL THERAPY TREATMENT NOTE ASSESSMENT: Albin Issa demonstrated improvements in gait. The patient will continue to benefit from ongoing skilled physical therapy for strengthening and gait training with prosthesis. PLAN FOR NEXT VISIT: POC update. SUBJECTIVE: Patient Reason for Visit: Pt reports he has been startin got use only one cane when ambulating in his home, but continues to use 2 canes when out of the home. He reports he is using the thinnest sock he has for his prosthesis, but is plesaed with the improvements from his original prosthesis. Pain: Pain Pain Level: 0 Post Treatment Pain Post Treatment Pain Level: 0 OBJECTIVE MEASURES WITH LEVEL OF FUNCTION: Gait Gait Observation: Pt demosntrates improved gait pattern using 3 point gait with one quad cane during treatment today noting more smooth transition throughout the gait cycle. TREATMENT: Therapeutic Exercise: 1: Standing hip abductions left 4# 1x40 and right 5# 1x40 2: Standing hip extensions right 1x40 and left 1x40 with 5# weight B. 3: Step-ups- and- over blue and green (8) step in the parallel bars with B UE assist 1x10 reps each direction. (no rest break) Skilled Intervention: Patient was educated in proper exercise technique and purpose for exercises. Skilled judgment was provided in selection of appropriate interventions. Correct performance of therapeutic exercises was facilitated with verbal and visual cuing. Patient education as noted. Gait Trainin: Ambulation in // bars side stepping back and forth x 7 each direction. Pt had one episode of loss of balance d/t catching R heel on linoleum. Therapist moderate assist to recover balance. 3: Ambulation on level with 1 quad cane with chairs positioned in hallway for safety and rest breaks 150' x 2 with direction changes. Verbal cues for proper step length and insure R LE clears the floor to advance leg. 4: Verbal cues at times for sit <> stand technique to improve safety. Skilled Intervention: Patient was provided moderate assistance, contact guard assistance during pre-gait/gait training to prevent falls and insure safety. Facilitated proper gait cycle with the use of verbal and visual cues for correction of gait deviations identified in the objective section above. Gait belt utilized during session for safety. Skilled judgment used to assess proper use of assistive device. Billing: [facility]: Therapeutic Exercise ([id number]): 1:1 time: 15 minutes (1 unit: 8-22 mins) Gait Training ([id number]): 1:1 time: 28 minutes (2 units: 23-37 mins) Total time: 43 minutes Radha Yu PT [facility] CNTHERAPYon 12-25-2019 CNTHERAPY OT/PT/Speech Visit (PTWS) ALBIN ISSA ([id number]) 1955 M Date Time Provider Department 12/25/19 2:00 PM ANN MESSINA (TECHNOLOGY ADMINISTRATOR) PTWS Date Time Provider Department Center 12/25/2019 2:00 PM [id number], NANCY (TECHNOLOGY ADMINISTRATOR) PTWS REPLACED BY [facility] Reason for Visit: Physical Therapy [503] Primary Visit Diagnosis:S/P AKA (above knee amputation), right ([facility]) [Z89.611] Allergies As of Date: 12/25/2019 (Not on File) Date Reviewed: Never Reviewed Progress Notes: Fidel Sarmiento PT 12/25/2019 4:52 PM Signed Episode Visit Count: 25 Therapist That Will Oversee The Plan Of Care: Radha Yu Start of Care Date: 07/06/19 Onset Date: 01/26/19 Plan of Care Certification Date: 12/07/19 Patient Identified by Name and Date of : Yes REHABILITATION AND SPORTS THERAPY PHYSICAL THERAPY TREATMENT NOTE ASSESSMENT: Albin Issa demonstrated improvements in gait with more symmetrical step length and no loss of balance with direction changes. He was able to advance B lower extremity strengthening to 5# weights. The patient will continue to benefit from ongoing skilled physical therapy for progression of gait with 1 quad cane and B lower extremity strength. PLAN FOR NEXT VISIT: Continue to work toward progression of gait to 1 quad cane and eventually no assistive device. SUBJECTIVE: Patient Reason for Visit: Patient reports good tolerance to last therapy. He denies pain or falls. Pain: Pain Pain Level: 0 Post Treatment Pain Post Treatment Pain Level: 0 OBJECTIVE MEASURES WITH LEVEL OF FUNCTION: Improved gait with more symmetrical step length today with 1 quad cane. TREATMENT: Therapeutic Exercise: 1: Standing hip abductions left 4# 1x40 and right 5# 1x40 2: Standing hip extensions right 1x40 and left 1x40 with 5# weight B. 3: Step-ups- and- over blue and green (8) step in the parallel bars with B UE assist 1x10 reps each direction. (no rest break) Skilled Intervention: Patient was educated in proper exercise technique and purpose for exercises. Skilled judgment was provided in selection of appropriate interventions. Correct performance of therapeutic exercises was facilitated with verbal cuing. Gait Trainin: Ambulation in // bars side stepping back and forth x 3 each direction. 3: Ambulation on level with 1 quad cane with chairs positioned in different areas in gym for safety and rest breaks 150' x 1 and 175 x 1 with directions changes. Verbal cues for proper step length. Verbal cues for proper way to sit in chait to back up to the chair and feel chair behind legs and than reach back to sit. Skilled Intervention: Gait belt utilized during session for safety. Cueing for proper step length. Billing: [facility]: Therapeutic Exercise ([id number]): 1:1 time: 13 minutes (1 unit: 8-22 mins) Gait Training ([id number]): 1:1 time: 29 minutes (2 units: 23-37 mins) Total time: 42 minutes MOE Puga, PT Previous Version [facility] PROGRESSon 12-25-2019 PROGRESS HNO ID: [id number] Author: Fidel Sarmiento Service: ? Author Type: Physical Therapist Type: Progress Notes Filed: 12/25/2019 4:52 PM Note Text: Episode Visit Count: 25 Therapist That Will Oversee The Plan Of Care: Radha Yu Start of Care Date: 07/06/19 Onset Date: 01/26/19 Plan of Care Certification Date: 12/07/19 Patient Identified by Name and Date of : Yes REHABILITATION AND SPORTS THERAPY PHYSICAL THERAPY TREATMENT NOTE ASSESSMENT: Albin Issa demonstrated improvements in gait with more symmetrical step length and no loss of balance with direction changes. He was able to advance B lower extremity strengthening to 5# weights. The patient will continue to benefit from ongoing skilled physical therapy for progression of gait with 1 quad cane and B lower extremity strength. PLAN FOR NEXT VISIT: Continue to work toward progression of gait to 1 quad cane and eventually no assistive device. SUBJECTIVE: Patient Reason for Visit: Patient reports good tolerance to last therapy. He denies pain or falls. Pain: Pain Pain Level: 0 Post Treatment Pain Post Treatment Pain Level: 0 OBJECTIVE MEASURES WITH LEVEL OF FUNCTION: Improved gait with more symmetrical step length today with 1 quad cane. TREATMENT: Therapeutic Exercise: 1: Standing hip abductions left 4# 1x40 and right 5# 1x40 2: Standing hip extensions right 1x40 and left 1x40 with 5# weight B. 3: Step-ups- and- over blue and green (8) step in the parallel bars with B UE assist 1x10 reps each direction. (no rest break) Skilled Intervention: Patient was educated in proper exercise technique and purpose for exercises. Skilled judgment was provided in selection of appropriate interventions. Correct performance of therapeutic exercises was facilitated with verbal cuing. Gait Trainin: Ambulation in // bars side stepping back and forth x 3 each direction. 3: Ambulation on level with 1 quad cane with chairs positioned in different areas in gym for safety and rest breaks 150' x 1 and 175 x 1 with directions changes. Verbal cues for proper step length. Verbal cues for proper way to sit in chait to back up to the chair and feel chair behind legs and than reach back to sit. Skilled Intervention: Gait belt utilized during session for safety. Cueing for proper step length. Billing: [facility]: Therapeutic Exercise ([id number]): 1:1 time: 13 minutes (1 unit: 8-22 mins) Gait Training ([id number]): 1:1 time: 29 minutes (2 units: 23-37 mins) Total time: 42 minutes MOE Puga PT [facility] CNTHERAPYon 12-21-2019 CNTHERAPY OT/PT/Speech Visit (PTWS) ALBIN ISSA ([id number]) 1955 M Date Time Provider Department 12/21/19 2:45 PM ANN MESSINA (TECHNOLOGY ADMINISTRATOR) PTWS Date Time Provider Department Center 12/21/2019 2:45 PM [id number], NANCY (TECHNOLOGY ADMINISTRATOR) PTWS REPLACED BY [facility] Reason for Visit: Physical Therapy [503] Primary Visit Diagnosis:S/P AKA (above knee amputation), right ([facility]) [Z89.611] Allergies As of Date: 12/21/2019 (Not on File) Date Reviewed: Never Reviewed Progress Notes: Radha Yu PT 12/21/2019 4:56 PM Signed Episode Visit Count: 24 Therapist That Will Oversee The Plan Of Care: Radha Yu Start of Care Date: 07/06/19 Onset Date: 01/26/19 Plan of Care Certification Date: 12/07/19 Patient Identified by Name and Date of : Yes REHABILITATION AND SPORTS THERAPY PHYSICAL THERAPY TREATMENT NOTE ASSESSMENT: Albin Issa demonstrated difficulty with right prosthesis toeing in during gait. He is progressing with use of 1 quad cane in therapy. He was advised to continue with B quad canes at home at current time. The patient will continue to benefit from ongoing skilled physical therapy for progression of gait and lower extremity strengthening. PLAN FOR NEXT VISIT: Continue to work toward progression of gait to 1 quad cane and eventually no assistive device. SUBJECTIVE: Patient Reason for Visit: Patient reports good tolerance to last therapy. He reports no pain today. Pain: Pain Pain Level: 0 OBJECTIVE MEASURES WITH LEVEL OF FUNCTION: Close guarding with gait with 1 quad cane on level surface. TREATMENT: Therapeutic Exercise: 1: Standing hip abductions left 4# 1x40 and right 4# 1x40 2: Standing hip extensions right 1x40 and left 1x40 with 4# weight B. 3: Step-ups- and- over blue and green (8) step in the parallel bars with B UE assist 1x10 reps each direction. (no rest break) Skilled Intervention: Patient was educated in proper exercise technique and purpose for exercises. Skilled judgment was provided in selection of appropriate interventions. Gait Trainin: Ambulation in // bars with left UE assist back and forth x 3. 3: Ambulation on level with 1 quad cane with chairs positioned in different areas in gym for safety and rest breaks 150' x 2. Verbal cues for proper step length. Verbal cues for proper way to sit in chait to back up to the chair and feel chair behind legs and than reach back to sit. 4: Instruction to patient to continue with B quad canes at home at current time. Skilled Intervention: Patient was provided stand by assist during pre-gait/gait training to prevent falls and insure safety. Gait belt utilized during session for safety. Billing: [facility]: Therapeutic Exercise ([id number]): 1:1 time: 15 minutes (1 unit: 8-22 mins) Gait Training ([id number]): 1:1 time: 30 minutes (2 units: 23-37 mins) Total time: 45 minutes MOE Puga PT Previous Version [facility] PROGRESSon 12-21-2019 PROGRESS HNO ID: [id number] Author: Radha (Pt) Gigi Service: ? Author Type: Physical Therapist Type: Progress Notes Filed: 12/21/2019 4:56 PM Note Text: Episode Visit Count: 24 Therapist That Will Oversee The Plan Of Care: Radha Yu Start of Care Date: 07/06/19 Onset Date: 01/26/19 Plan of Care Certification Date: 12/07/19 Patient Identified by Name and Date of : Yes REHABILITATION AND SPORTS THERAPY PHYSICAL THERAPY TREATMENT NOTE ASSESSMENT: Albin Issa demonstrated difficulty with right prosthesis toeing in during gait. He is progressing with use of 1 quad cane in therapy. He was advised to continue with B quad canes at home at current time. The patient will continue to benefit from ongoing skilled physical therapy for progression of gait and lower extremity strengthening. PLAN FOR NEXT VISIT: Continue to work toward progression of gait to 1 quad cane and eventually no assistive device. SUBJECTIVE: Patient Reason for Visit: Patient reports good tolerance to last therapy. He reports no pain today. Pain: Pain Pain Level: 0 OBJECTIVE MEASURES WITH LEVEL OF FUNCTION: Close guarding with gait with 1 quad cane on level surface. TREATMENT: Therapeutic Exercise: 1: Standing hip abductions left 4# 1x40 and right 4# 1x40 2: Standing hip extensions right 1x40 and left 1x40 with 4# weight B. 3: Step-ups- and- over blue and green (8) step in the parallel bars with B UE assist 1x10 reps each direction. (no rest break) Skilled Intervention: Patient was educated in proper exercise technique and purpose for exercises. Skilled judgment was provided in selection of appropriate interventions. Gait Trainin: Ambulation in // bars with left UE assist back and forth x 3. 3: Ambulation on level with 1 quad cane with chairs positioned in different areas in gym for safety and rest breaks 150' x 2. Verbal cues for proper step length. Verbal cues for proper way to sit in chait to back up to the chair and feel chair behind legs and than reach back to sit. 4: Instruction to patient to continue with B quad canes at home at current time. Skilled Intervention: Patient was provided stand by assist during pre-gait/gait training to prevent falls and insure safety. Gait belt utilized during session for safety. Billing: [facility]: Therapeutic Exercise ([id number]): 1:1 time: 15 minutes (1 unit: 8-22 mins) Gait Training ([id number]): 1:1 time: 30 minutes (2 units: 23-37 mins) Total time: 45 minutes Ann Messina, PT-A Radha Yu PT [facility] CNTHERAPYon 12-18-2019 CNTHERAPY OT/PT/Speech Visit (PTWS) ALBIN ISSA ([id number]) 1955 M Date Time Provider Department 12/18/19 1:15 PM ANN MESSINA (TECHNOLOGY ADMINISTRATOR) PTWS Date Time Provider Department Center 12/18/2019 1:15 PM [id number], NANCY (TECHNOLOGY ADMINISTRATOR) PTWS REPLACED BY [facility] Reason for Visit: Physical Therapy [503] Primary Visit Diagnosis:S/P AKA (above knee amputation), right ([facility]) [Z89.611] Allergies As of Date: 12/18/2019 (Not on File) Date Reviewed: Never Reviewed Progress Notes: Anshu Phelps PT 12/21/2019 8:32 AM Signed Episode Visit Count: 23 Therapist That Will Oversee The Plan Of Care: Radha Yu Start of Care Date: 07/06/19 Onset Date: 01/26/19 Plan of Care Certification Date: 12/07/19 Patient Identified by Name and Date of : Yes REHABILITATION AND SPORTS THERAPY PHYSICAL THERAPY TREATMENT NOTE ASSESSMENT: Albin Issa demonstrated difficulty with gait with 2 quad canes with upright posture. He was able to look up more with verbal and visual cueing. He is progressing with control with 1 UE in // bars with his gait. He was able to progress lower extremity strengthening exercises today. The patient will continue to benefit from ongoing skilled physical therapy for progression of gait with 1 quad cane and lower extremity strength. PLAN FOR NEXT VISIT: Possibly try gait with 1 quad cane following progression of 1 UE assist walking in // bars. SUBJECTIVE: Patient Reason for Visit: Patient reports the new prothesis in moving better and feels more like a normal knee. He reports no pressure sores and no pain currently. Pain: Pain Pain Level: 0 Post Treatment Pain Post Treatment Pain Level: 0 OBJECTIVE MEASURES WITH LEVEL OF FUNCTION: Verbal cues for upright stance with gait with B quad canes. TREATMENT: Therapeutic Exercise: 1: Standing hip abductions left 4# 1x40 and right 4# 1x40 2: Standing hip extensions right 1x40 and left 1x40 with 4# weight B. 3: Step-ups- and- over blue and green (8) step in the parallel bars with B UE assist 1x10 reps each direction. (no rest break) Skilled Intervention: Patient was educated in proper exercise technique and purpose for exercises. Skilled judgment was provided in selection of appropriate interventions. Correct performance of therapeutic exercises was facilitated with verbal cuing. Gait Trainin: Ambulation with B quad canes in gym with using mirror for visual feedback with supervision.(verbal cues to look up and cues for equal step length) 2: Ambulation in // bars with left UE assist back and forth x 3. Skilled Intervention: Gait belt utilized during session for safety. Verbal cues for upright posture during gait. Billing: [facility]: Therapeutic Exercise ([id number]): 1:1 time: 15 minutes (1 unit: 8-22 mins) Gait Training ([id number]): 1:1 time: 25 minutes (2 units: 23-37 mins) Total time: 40 minutes nAn Messina PT-Eder Phelps PT Previous Version [facility] PROGRESSon 12-18-2019 PROGRESS HNO ID: [id number] Author: Anshu (Jacob Phelps Service: ? Author Type: Physical Therapist Type: Progress Notes Filed: 12/21/2019 8:32 AM Note Text: Episode Visit Count: 23 Therapist That Will Oversee The Plan Of Care: Radha Yu Start of Care Date: 07/06/19 Onset Date: 01/26/19 Plan of Care Certification Date: 12/07/19 Patient Identified by Name and Date of : Yes REHABILITATION AND SPORTS THERAPY PHYSICAL THERAPY TREATMENT NOTE ASSESSMENT: Albin Issa demonstrated difficulty with gait with 2 quad canes with upright posture. He was able to look up more with verbal and visual cueing. He is progressing with control with 1 UE in // bars with his gait. He was able to progress lower extremity strengthening exercises today. The patient will continue to benefit from ongoing skilled physical therapy for progression of gait with 1 quad cane and lower extremity strength. PLAN FOR NEXT VISIT: Possibly try gait with 1 quad cane following progression of 1 UE assist walking in // bars. SUBJECTIVE: Patient Reason for Visit: Patient reports the new prothesis in moving better and feels more like a normal knee. He reports no pressure sores and no pain currently. Pain: Pain Pain Level: 0 Post Treatment Pain Post Treatment Pain Level: 0 OBJECTIVE MEASURES WITH LEVEL OF FUNCTION: Verbal cues for upright stance with gait with B quad canes. TREATMENT: Therapeutic Exercise: 1: Standing hip abductions left 4# 1x40 and right 4# 1x40 2: Standing hip extensions right 1x40 and left 1x40 with 4# weight B. 3: Step-ups- and- over blue and green (8) step in the parallel bars with B UE assist 1x10 reps each direction. (no rest break) Skilled Intervention: Patient was educated in proper exercise technique and purpose for exercises. Skilled judgment was provided in selection of appropriate interventions. Correct performance of therapeutic exercises was facilitated with verbal cuing. Gait Trainin: Ambulation with B quad canes in gym with using mirror for visual feedback with supervision.(verbal cues to look up and cues for equal step length) 2: Ambulation in // bars with left UE assist back and forth x 3. Skilled Intervention: Gait belt utilized during session for safety. Verbal cues for upright posture during gait. Billing: [facility]: Therapeutic Exercise ([id number]): 1:1 time: 15 minutes (1 unit: 8-22 mins) Gait Training ([id number]): 1:1 time: 25 minutes (2 units: 23-37 mins) Total time: 40 minutes Ann Messina PTRichard Phelps PT [facility] CNTHERAPYon 12-07-2019 CNTHERAPY OT/PT/Speech Visit (PTWS) ALBIN ISSA ([id number]) 1955 M Date Time Provider Department 12/07/19 10:30 AM RADHA YU (PT) PTWS Date Time Provider Department Center 12/07/2019 10:30 AM [id number] YU (PT) PTWS REPLACED BY [facility] Reason for Visit: PT Progress Note [[id number]] Primary Visit Diagnosis:S/P AKA (above knee amputation), right (HCC) [Z89.611] Allergies As of Date: 12/07/2019 (Not on File) Date Reviewed: Never Reviewed Progress Notes: Radha Yu PT 12/07/2019 3:23 PM Addendum Episode Visit Count: 22 Therapist That Will Oversee The Plan Of Care: Radha Yu Start of Care Date: 07/06/19 Onset Date: 01/26/19 Plan of Care Certification Date: 09/07/19 Patient Identified by Name and Date of : Yes REHABILITATION AND SPORTS THERAPY PHYSICAL THERAPY PROGRESS REPORT PLAN OF CARE UPDATE: Assessment: Albin Issa exhibits difficulty with limited function and balance and improvements in fitting with new R LE above the knee prosthesis. He continues to be limited with rising from a chair, walking in the community and stair negotiation. He is progressing as expected towards his therapy goals as demonstrated by: documented subjective information on progress. He will benefit from continued skilled therapy requiring supervised progression of exercises, balance, and prosthetic gait instruction in order to further improve and achieve full and independent function. Functional gains: Improved gait quality Improved ability to perform transfers Goals for Episode of Care: created on 07/06/19 through 09/05/19 Goals updated on 10/16/2019. [place] in home exercise program. (Met) Patient will increase strength of R LE and core musculature to 5/5 to allow for normalized gait mechanics and perform ADLs. (Met) Perform all daily activities, transfers and community ambulation with decreased report of symptoms/pain in 6-8 weeks.(Met) Improve postural awareness. (Met) Normal, independent gait with prosthesis and no assistive device. (Not Met)-progressing Planned Interventions, Frequency, and Duration: 2x/week, 4 weeks Total Number of Visits Planned: 8 Patient to be seen for PLAN FOR NEXT VISIT: Continue x 4 weeks for balance, strengthening, endurance and progression with use of new prosthesis. SUBJECTIVE: Patient Reason for Visit: Pt presents with new prosthesis R LE. He is ambulating with 2 LBQCs. He notes the geospatial intelligence analyst took about 3/4 inches off of it to even me up. He received it on Nov 26 and started using it the same day. Pt states his stump fluctuates day-to-day and he has several socks of varying thicknesses to wear as needed. Pain: Pain Pain Level: 0 Post Treatment Pain Post Treatment Pain Level: 0 PROMIS Scales T-scores: mean of general population = 50. 5 points is clinically meaningfully difference Percentiles provide an indication of how the patient's score ranks in relation to the general population. Higher percentile rankings indicate better function/quality of life. 50th percentile is the average of the general population and indicates half of respondents had a worse score. T-scores: mean of general population = 50. 5 points is clinically meaningfully difference Percentiles provide an indication of how the patient's score ranks in relation to the general population. Higher percentile rankings indicate better function/quality of life. 50th percentile is the average of the general population and indicates half of respondents had a worse score. AM-PAC score= 51.67 OBJECTIVE MEASURES WITH LEVEL OF FUNCTION: LE Strength R Hip Flexion (L2): 5/5 R Hip ABduction: 5/5 R Hip ADduction: 5/5 L Hip Flexion (L2): 5/5 L Hip ABduction: 5/5 L Hip ADduction: 5/5 L Knee Extension (L3): 5/5 L Knee Flexion: 5/5 Functional Strength Sit/Stand: Independent with 2 canes. Verbal cueing for hand transition cane to arm of chair. At times, mild difficulty setting prosthetic foot in correct place to allow smooth knee flexion. Gait Gait Observation: Pt ambulates independently with 2 LBQCs using a 4point gait pattern. Pt demonstrates fairly smooth gait pattern. TREATMENT: Therapeutic Exercise: 1: Standing hip abductions left 3# 1x40 and right 3# 1x40 2: Standing hip extensions right 1x40 and left 1x40 with 3# weight B. 3: Step-ups- and- over blue and green (8) step in the parallel bars with B UE assist 2x 5 reps each direction. Skilled Intervention: Patient was educated in proper exercise technique and purpose for exercises. Reviewed and educated patient on additions/changes for home exercise program Skilled judgment was provided in selection of appropriate interventions. Correct performance of therapeutic exercises was facilitated with verbal and visual cuing. Patient education as noted. Pt required 2 rest periods between activities today. Gait Trainin: Ambulation with B quad canes and therapist supervision 1 time around equipment. Skilled Intervention: Patient was provided stand by assist, supervision during pre-gait/gait training to prevent falls and insure safety. Facilitated proper gait cycle with the use of verbal and visual cues for correction of gait deviations identified in the objective section above. Skilled judgment used to assess proper use and fit of assistive device (LBQC x 2 and R LE above the knee prosthesis). Billing: [facility]: Therapeutic Exercise ([id number]): 1:1 time: 30 minutes (2 units: 23-37 mins) Gait Training ([id number]): 1:1 time: 10 minutes (1 unit: 8-22 mins) Total time: 40 minutes Radha Yu PT Previous Version Letter Text [facility] PROGRESSon 12-07-2019 PROGRESS HNO ID: [id number] Author: Radha (Pt) Gigi Service: ? Author Type: Physical Therapist Type: Progress Notes Filed: 12/07/2019 3:23 PM Note Text: Episode Visit Count: 22 Therapist That Will Oversee The Plan Of Care: Radha Yu Start of Care Date: 07/06/19 Onset Date: 01/26/19 Plan of Care Certification Date: 09/07/19 Patient Identified by Name and Date of : Yes REHABILITATION AND SPORTS THERAPY PHYSICAL THERAPY PROGRESS REPORT PLAN OF CARE UPDATE: Assessment: Albin Issa exhibits difficulty with limited function and balance and improvements in fitting with new R LE above the knee prosthesis. He continues to be limited with rising from a chair, walking in the community and stair negotiation. He is progressing as expected towards his therapy goals as demonstrated by: documented subjective information on progress. He will benefit from continued skilled therapy requiring supervised progression of exercises, balance, and prosthetic gait instruction in order to further improve and achieve full and independent function. Functional gains: Improved gait quality Improved ability to perform transfers Goals for Episode of Care: created on 07/06/19 through 09/05/19 Goals updated on 10/16/2019. [place] in home exercise program. (Met) Patient will increase strength of R LE and core musculature to 5/5 to allow for normalized gait mechanics and perform ADLs. (Met) Perform all daily activities, transfers and community ambulation with decreased report of symptoms/pain in 6-8 weeks.(Met) Improve postural awareness. (Met) Normal, independent gait with prosthesis and no assistive device. (Not Met)-progressing Planned Interventions, Frequency, and Duration: 2x/week, 4 weeks Total Number of Visits Planned: 8 Patient to be seen for PLAN FOR NEXT VISIT: Continue x 4 weeks for balance, strengthening, endurance and progression with use of new prosthesis. SUBJECTIVE: Patient Reason for Visit: Pt presents with new prosthesis R LE. He is ambulating with 2 LBQCs. He notes the geospatial intelligence analyst took about 3/4 inches off of it to even me up. He received it on Nov 26 and started using it the same day. Pt states his stump fluctuates day-to-day and he has several socks of varying thicknesses to wear as needed. Pain: Pain Pain Level: 0 Post Treatment Pain Post Treatment Pain Level: 0 PROMIS Scales T-scores: mean of general population = 50. 5 points is clinically meaningfully difference Percentiles provide an indication of how the patient's score ranks in relation to the general population. Higher percentile rankings indicate better function/quality of life. 50th percentile is the average of the general population and indicates half of respondents had a worse score. T-scores: mean of general population = 50. 5 points is clinically meaningfully difference Percentiles provide an indication of how the patient's score ranks in relation to the general population. Higher percentile rankings indicate better function/quality of life. 50th percentile is the average of the general population and indicates half of respondents had a worse score. AM-PAC score= 51.67 OBJECTIVE MEASURES WITH LEVEL OF FUNCTION: LE Strength R Hip Flexion (L2): 5/5 R Hip ABduction: 5/5 R Hip ADduction: 5/5 L Hip Flexion (L2): 5/5 L Hip ABduction: 5/5 L Hip ADduction: 5/5 L Knee Extension (L3): 5/5 L Knee Flexion: 5/5 Functional Strength Sit/Stand: Independent with 2 canes. Verbal cueing for hand transition cane to arm of chair. At times, mild difficulty setting prosthetic foot in correct place to allow smooth knee flexion. Gait Gait Observation: Pt ambulates independently with 2 LBQCs using a 4point gait pattern. Pt demonstrates fairly smooth gait pattern. TREATMENT: Therapeutic Exercise: 1: Standing hip abductions left 3# 1x40 and right 3# 1x40 2: Standing hip extensions right 1x40 and left 1x40 with 3# weight B. 3: Step-ups- and- over blue and green (8) step in the parallel bars with B UE assist 2x 5 reps each direction. Skilled Intervention: Patient was educated in proper exercise technique and purpose for exercises. Reviewed and educated patient on additions/changes for home exercise program Skilled judgment was provided in selection of appropriate interventions. Correct performance of therapeutic exercises was facilitated with verbal and visual cuing. Patient education as noted. Pt required 2 rest periods between activities today. Gait Trainin: Ambulation with B quad canes and therapist supervision 1 time around equipment. Skilled Intervention: Patient was provided stand by assist, supervision during pre-gait/gait training to prevent falls and insure safety. Facilitated proper gait cycle with the use of verbal and visual cues for correction of gait deviations identified in the objective section above. Skilled judgment used to assess proper use and fit of assistive device (LBQC x 2 and R LE above the knee prosthesis). Billing: [facility]: Therapeutic Exercise ([id number]): 1:1 time: 30 minutes (2 units: 23-37 mins) Gait Training ([id number]): 1:1 time: 10 minutes (1 unit: 8-22 mins) Total time: 40 minutes Radha Yu PT [facility] CNTHERAPYon 10-16-2019 CNTHERAPY OT/PT/Speech Visit (PTWS) ALBIN ISSA ([id number]) 1955 M Date Time Provider Department 10/16/19 2:30 PM RADHA YU (PT) PTWS Date Time Provider Department Center 10/16/2019 2:30 PM [id number] YU (PT) PTWS REPLACED BY [facility] Reason for Visit: PT Progress Note [1596] Primary Visit Diagnosis:S/P AKA (above knee amputation), right (HCC) [Z89.611] Allergies As of Date: 10/16/2019 (Not on File) Date Reviewed: Never Reviewed Progress Notes: Radha Yu, PT 10/16/2019 3:46 PM Signed Episode Visit Count: 21 Therapist That Will Oversee The Plan Of Care: Radha Yu Start of Care Date: 07/06/19 Onset Date: 01/26/19 Plan of Care Certification Date: 09/07/19 Patient Identified by Name and Date of : Yes REHABILITATION AND SPORTS THERAPY PHYSICAL THERAPY PROGRESS REPORT PLAN OF CARE UPDATE: Assessment: Albin Issa exhibits improvements in LE strength, balance and gait. He continues to be limited with walking in the community. He is progressing as expected towards his therapy goals as demonstrated by: documented subjective information on progress and documented objective information regarding gait, strength and balance. He will benefit from continued skilled therapy requiring balance and strengthening exercises and gait instruction when receives his permanent prosthesis to promote safe and functional ambulation, transfers and function. Functional gains: Improved gait quality Improved balance / decreased risk of falls Increased endurance / activity tolerance Increased independence with HEP Increased strength Goals for Episode of Care: created on 07/06/19 through 09/05/19 Goals updated on 09/11/2019. [place] in home exercise program. (Met) Patient will increase strength of R LE and core musculature to 5/5 to allow for normalized gait mechanics and perform ADLs. (Met) Perform all daily activities, transfers and community ambulation with decreased report of symptoms/pain in 6-8 weeks.(Met) Improve postural awareness. (Met) Normal, independent gait with prosthesis and no assistive device. (Not Met)-progressing Planned Interventions, Frequency, and Duration: 1x/week, 6 weeks Total Number of Visits Planned: 6 Patient to be seen for Therapeutic exercise;Neuromuscula r re-education;Gait Training;Patient/Fami ly/Caregiver Education PLAN FOR NEXT VISIT: Continue with strength, balance and gait activities to prepare for ambulation with new prosthesis. (Anticipate arrival in about 2 weeks per pt report.) SUBJECTIVE: Patient Reason for Visit: Pt states he has an appt to order new prosthesis next . Pain: Pain Pain Level: 0 Post Treatment Pain Post Treatment Pain Level: 0 OBJECTIVE MEASURES WITH LEVEL OF FUNCTION: Gait Gait Observation: Pt ambulates independently with 2 LBQCs using a 3point gait pattern. Pt demonstrates smooth and steady gait pattern with increased khoi compared to previous progress assessment. Balance Static Standing Balance: B 2 min Single Leg Stance: 25 sec TREATMENT: Therapeutic Exercise: 1: Standing hip abductions left 3# 2x40 and right 3# 2x40 2: Standing hip extensions right 2x40 and left 2x40 with 3# weight B. 3: Step-ups- and- over blue and green (8) step in the parallel bars with B UE assist x 10 reps each direction. Also using 2 blue steps (12 inch) x 5 reps both ways. 4: Double and single leg balancing multiple reps to fatigue inparallel bars. Skilled Intervention: Patient was educated in proper exercise technique and purpose for exercises. Skilled judgment was provided in selection of appropriate interventions. Provided written instruction for home exercise program to facilitate proper performance and compliance. Correct performance of therapeutic exercises was facilitated with verbal and visual cuing. Patient education as noted. Objective measurements and reassessment. Billing: [facility]: Therapeutic Exercise ([id number]): 1:1 time: 40 minutes (3 units: 38-52 mins) Total time: 40 minutes Radha Yu PT [facility] PROGRESSon 10-16-2019 PROGRESS HNO ID: [id number] Author: Radha (Pt) Gigi Service: ? Author Type: Physical Therapist Type: Progress Notes Filed: 10/16/2019 3:46 PM Note Text: Episode Visit Count: 21 Therapist That Will Oversee The Plan Of Care: Radha Yu Start of Care Date: 07/06/19 Onset Date: 01/26/19 Plan of Care Certification Date: 09/07/19 Patient Identified by Name and Date of : Yes REHABILITATION AND SPORTS THERAPY PHYSICAL THERAPY PROGRESS REPORT PLAN OF CARE UPDATE: Assessment: Albin Issa exhibits improvements in LE strength, balance and gait. He continues to be limited with walking in the community. He is progressing as expected towards his therapy goals as demonstrated by: documented subjective information on progress and documented objective information regarding gait, strength and balance. He will benefit from continued skilled therapy requiring balance and strengthening exercises and gait instruction when receives his permanent prosthesis to promote safe and functional ambulation, transfers and function. Functional gains: Improved gait quality Improved balance / decreased risk of falls Increased endurance / activity tolerance Increased independence with HEP Increased strength Goals for Episode of Care: created on 07/06/19 through 09/05/19 Goals updated on 09/11/2019. [place] in home exercise program. (Met) Patient will increase strength of R LE and core musculature to 5/5 to allow for normalized gait mechanics and perform ADLs. (Met) Perform all daily activities, transfers and community ambulation with decreased report of symptoms/pain in 6-8 weeks.(Met) Improve postural awareness. (Met) Normal, independent gait with prosthesis and no assistive device. (Not Met)-progressing Planned Interventions, Frequency, and Duration: 1x/week, 6 weeks Total Number of Visits Planned: 6 Patient to be seen for Therapeutic exercise;Neuromuscula r re-education;Gait Training;Patient/Fami ly/Caregiver Education PLAN FOR NEXT VISIT: Continue with strength, balance and gait activities to prepare for ambulation with new prosthesis. (Anticipate arrival in about 2 weeks per pt report.) SUBJECTIVE: Patient Reason for Visit: Pt states he has an appt to order new prosthesis next . Pain: Pain Pain Level: 0 Post Treatment Pain Post Treatment Pain Level: 0 OBJECTIVE MEASURES WITH LEVEL OF FUNCTION: Gait Gait Observation: Pt ambulates independently with 2 LBQCs using a 3point gait pattern. Pt demonstrates smooth and steady gait pattern with increased khoi compared to previous progress assessment. Balance Static Standing Balance: B 2 min Single Leg Stance: 25 sec TREATMENT: Therapeutic Exercise: 1: Standing hip abductions left 3# 2x40 and right 3# 2x40 2: Standing hip extensions right 2x40 and left 2x40 with 3# weight B. 3: Step-ups- and- over blue and green (8) step in the parallel bars with B UE assist x 10 reps each direction. Also using 2 blue steps (12 inch) x 5 reps [address] ways. 4: Double and single leg balancing multiple reps to fatigue inparallel bars. Skilled Intervention: Patient was educated in proper exercise technique and purpose for exercises. Skilled judgment was provided in selection of appropriate interventions. Provided written instruction for home exercise program to facilitate proper performance and compliance. Correct performance of therapeutic exercises was facilitated with verbal and visual cuing. Patient education as noted. Objective measurements and reassessment. Billing: [facility]: Therapeutic Exercise ([id number]): 1:1 time: 40 minutes (3 units: 38-52 mins) Total time: 40 minutes Radha Yu PT [facility] CNTHERAPYon 10-02-2019 CNTHERAPY OT/PT/Speech Visit (PTWS) ALBIN ISSA ([id number]) 1955 M Date Time Provider Department 10/02/19 8:00 AM RADHA YU (PT) PTWS Date Time Provider Department Center 10/02/2019 8:00 AM [id number] YU (PT) PTWS REPLACED BY [facility] Reason for Visit: Physical Therapy [503] Primary Visit Diagnosis:S/P AKA (above knee amputation), right ([facility]) [Z89.611] Allergies As of Date: 10/02/2019 (Not on File) Date Reviewed: Never Reviewed Progress Notes: Radha Yu PT 10/02/2019 12:56 PM Signed Episode Visit Count: 20 Therapist That Will Oversee The Plan Of Care: Radha Yu Start of Care Date: 07/06/19 Onset Date: 01/26/19 Plan of Care Certification Date: 09/07/19 Patient Identified by Name and Date of : Yes REHABILITATION AND SPORTS THERAPY PHYSICAL THERAPY TREATMENT NOTE ASSESSMENT: Albin Issa demonstrated difficulty with increased rest breaks today d/t being tired. The patient will continue to benefit from ongoing skilled physical therapy for strengthening, gait and balance. PLAN FOR NEXT VISIT: Resume side stepping activity for lateral gait and balance. SUBJECTIVE: Patient Reason for Visit: Pt states he is not having any difficulties with daily activities (transfers, amb in home, dressing and self care). He feels confident ambulating into a store from the parking lot, but will then use a motorized cart to maneuver through the store. He states he is very tired today as he only got 45 min sleep last night. Pain: Pain Pain Level: 0 Post Treatment Pain Post Treatment Pain Level: 0 OBJECTIVE MEASURES WITH LEVEL OF FUNCTION: Pt reported R hand falling asleep (paraesthesias) after several minutes of activity in the parallel bars. He notes this occurs intermittently even when wearing the wrist brace. it resolves when resting arm. TREATMENT: Therapeutic Exercise: 1: Standing hip abductions left 3# 2x40 and right 3# 2x40 2: Standing hip extensions right 2x40 and left 2x40 with 3# weight B. 3: Step-ups- and- over blue and green (8) step in the parallel bars with B UE assist x 10 reps each direction. Also using 2 blue steps (12 inch) x 5 reps [address] ways. 4: NBOS holding tray with ball balancing and reaching up, across midline and forward with CGA. to SBA in the parallel bars Skilled Intervention: Patient was educated in proper exercise technique and purpose for exercises. Skilled judgment was provided in selection of appropriate interventions. Correct performance of therapeutic exercises was facilitated with verbal and visual cuing. Patient education as noted. Gait Trainin: Ambulation with B quad canes 1 time around equipment. Skilled Intervention: Facilitated proper gait cycle with the use of verbal and visual cues for correction of gait deviations identified in the objective section above. Gait belt utilized during session for safety. Skilled judgment used to assess proper use of assistive device. Billing: [facility]: Therapeutic Exercise ([id number]): 1:1 time: 32 minutes (2 units: 23-37 mins) Gait Training ([id number]): 1:1 time: 8 minutes (1 unit: 8-22 mins) Total time: 40 minutes Radha Yu PT [facility] PROGRESSon 10-02-2019 PROGRESS HNO ID: [id number] Author: Radha (Pt) Gigi Service: ? Author Type: Physical Therapist Type: Progress Notes Filed: 10/02/2019 12:56 PM Note Text: Episode Visit Count: 20 Therapist That Will Oversee The Plan Of Care: Gigi Radha Start of Care Date: 07/06/19 Onset Date: 01/26/19 Plan of Care Certification Date: 09/07/19 Patient Identified by Name and Date of : Yes REHABILITATION AND SPORTS THERAPY PHYSICAL THERAPY TREATMENT NOTE ASSESSMENT: Albin Issa demonstrated difficulty with increased rest breaks today d/t being tired. The patient will continue to benefit from ongoing skilled physical therapy for strengthening, gait and balance. PLAN FOR NEXT VISIT: Resume side stepping activity for lateral gait and balance. SUBJECTIVE: Patient Reason for Visit: Pt states he is not having any difficulties with daily activities (transfers, amb in home, dressing and self care). He feels confident ambulating into a store from the parking lot, but will then use a motorized cart to maneuver through the store. He states he is very tired today as he only got 45 min sleep last night. Pain: Pain Pain Level: 0 Post Treatment Pain Post Treatment Pain Level: 0 OBJECTIVE MEASURES WITH LEVEL OF FUNCTION: Pt reported R hand falling asleep (paraesthesias) after several minutes of activity in the parallel bars. He notes this occurs intermittently even when wearing the wrist brace. it resolves when resting arm. TREATMENT: Therapeutic Exercise: 1: Standing hip abductions left 3# 2x40 and right 3# 2x40 2: Standing hip extensions right 2x40 and left 2x40 with 3# weight B. 3: Step-ups- and- over blue and green (8) step in the parallel bars with B UE assist x 10 reps each direction. Also using 2 blue steps (12 inch) x 5 reps [address] ways. 4: NBOS holding tray with ball balancing and reaching up, across midline and forward with CGA. to SBA in the parallel bars Skilled Intervention: Patient was educated in proper exercise technique and purpose for exercises. Skilled judgment was provided in selection of appropriate interventions. Correct performance of therapeutic exercises was facilitated with verbal and visual cuing. Patient education as noted. Gait Trainin: Ambulation with B quad canes 1 time around equipment. Skilled Intervention: Facilitated proper gait cycle with the use of verbal and visual cues for correction of gait deviations identified in the objective section above. Gait belt utilized during session for safety. Skilled judgment used to assess proper use of assistive device. Billing: [facility]: Therapeutic Exercise ([id number]): 1:1 time: 32 minutes (2 units: 23-37 mins) Gait Training ([id number]): 1:1 time: 8 minutes (1 unit: 8-22 mins) Total time: 40 minutes ZANDRA Aldana [facility] CNTHERAPYon 09-23-2019 CNTHERAPY OT/PT/Speech Visit (PTWS) ALBIN ISSA ([id number]) 1955 M Date Time Provider Department 09/23/19 2:15 PM ANN MESSINA (TECHNOLOGY ADMINISTRATOR) PTWS Date Time Provider Department Center 09/23/2019 2:15 PM [id number], NANCY (TECHNOLOGY ADMINISTRATOR) PTWS REPLACED BY [facility] Reason for Visit: Physical Therapy [503] Primary Visit Diagnosis:S/P AKA (above knee amputation), right (HCC) [Z89.611] Allergies As of Date: 09/23/2019 (Not on File) Date Reviewed: Never Reviewed Progress Notes: Radha Yu PT 09/25/2019 7:59 AM Signed Episode Visit Count: 19 Therapist That Will Oversee The Plan Of Care: Radha Yu Start of Care Date: 07/06/19 Onset Date: 01/26/19 Plan of Care Certification Date: 09/07/19 Patient Identified by Name and Date of : Yes REHABILITATION AND SPORTS THERAPY PHYSICAL THERAPY TREATMENT NOTE ASSESSMENT: Albin Issa demonstrated difficulty with carpal tunnel symptoms in right greater than left hand. Treatment focus on strengthening and balance today. The patient will continue to benefit from ongoing skilled physical therapy for progression of strength and balance. Work with new prosthesis when he gets it. PLAN FOR NEXT VISIT: Progress balance and gait. Possibly review stairs. SUBJECTIVE: Patient Reason for Visit: Patient reports he has carpel tunnel in right hand greater than left. No other pain. Patient reports his surgeon gave him the okay to precede to new prothesis. He is waiting for medicare approval. Pain: Pain Pain Level: 0 Pain Location: Hip - Right Post Treatment Pain Post Treatment Pain Level: No Change OBJECTIVE MEASURES WITH LEVEL OF FUNCTION: Contact guard assist with balance with ball and tray activities. TREATMENT: Therapeutic Exercise: 1: Standing hip abductions left 3# 1x23 [id number] and right 3# 2x40 2: Standing hip extensions right 2x40 and left 2x40 with 3# weight B. 3: Step-ups- and- over blue and green (8) step in the parallel bars with B UE assist x 10 reps each direction. Also using 2 blue steps (12 inch) x 5 reps [address] ways. 4: NBOS holding tray with ball balancing and reaching up, across midline and forward with CGA. Skilled Intervention: Patient was educated in proper exercise technique and purpose for exercises. Skilled judgment was provided in selection of appropriate interventions. Correct performance of therapeutic exercises was facilitated with verbal and visual cuing. Billing:KX modifier applied [facility]: Therapeutic Exercise ([id number]): 1:1 time: 40 minutes (3 units: 38-52 mins) Total time: 40 minutes MOE Puga PT Previous Version Normal [facility] PROGRESSon 09-23-2019 PROGRESS HNO ID: [id number] Author: Radha Yu Service: ? Author Type: Physical Therapist Type: Progress Notes Filed: 09/25/2019 7:59 AM Note Text: Episode Visit Count: 19 Therapist That Will Oversee The Plan Of Care: Radha Yu Start of Care Date: 07/06/19 Onset Date: 01/26/19 Plan of Care Certification Date: 09/07/19 Patient Identified by Name and Date of : Yes REHABILITATION AND SPORTS THERAPY PHYSICAL THERAPY TREATMENT NOTE ASSESSMENT: Albin Issa demonstrated difficulty with carpal tunnel symptoms in right greater than left hand. Treatment focus on strengthening and balance today. The patient will continue to benefit from ongoing skilled physical therapy for progression of strength and balance. Work with new prosthesis when he gets it. PLAN FOR NEXT VISIT: Progress balance and gait. Possibly review stairs. SUBJECTIVE: Patient Reason for Visit: Patient reports he has carpel tunnel in right hand greater than left. No other pain. Patient reports his surgeon gave him the okay to precede to new prothesis. He is waiting for medicare approval. Pain: Pain Pain Level: 0 Pain Location: Hip - Right Post Treatment Pain Post Treatment Pain Level: No Change OBJECTIVE MEASURES WITH LEVEL OF FUNCTION: Contact guard assist with balance with ball and tray activities. TREATMENT: Therapeutic Exercise: 1: Standing hip abductions left 3# 1x23 [id number] and right 3# 2x40 2: Standing hip extensions right 2x40 and left 2x40 with 3# weight B. 3: Step-ups- and- over blue and green (8) step in the parallel bars with B UE assist x 10 reps each direction. Also using 2 blue steps (12 inch) x 5 reps [address] ways. 4: NBOS holding tray with ball balancing and reaching up, across midline and forward with CGA. Skilled Intervention: Patient was educated in proper exercise technique and purpose for exercises. Skilled judgment was provided in selection of appropriate interventions. Correct performance of therapeutic exercises was facilitated with verbal and visual cuing. Billing:KX modifier applied [facility]: Therapeutic Exercise ([id number]): 1:1 time: 40 minutes (3 units: 38-52 mins) Total time: 40 minutes Ann Messina PT-Eder Yu, PT Normal [facility] CNTHERAPYon 09-11-2019 CNTHERAPY OT/PT/Speech Visit (PTWS) ALBIN ISSA ([id number]) 1955 M Date Time Provider Department 09/11/19 8:00 AM RADHA YU (PT) PTWS Date Time Provider Department Center 09/11/2019 8:00 AM [id number] YU (PT) PTWS REPLACED BY [facility] Reason for Visit: PT Progress Note [1596] Primary Visit Diagnosis:S/P AKA (above knee amputation), right (HCC) [Z89.611] Other Visit Diagnosis:Liposarcoma of thigh, 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 He continues to be limited with walking in the community. He is progressing as expected towards his therapy goals as demonstrated by: documented objective information regarding gait, strength and overall function. He will benefit from continued skilled therapy requiring skilled progression of strengthening and gait with gait training as he receives his new prosthesis in order to further improve safe and independent gait and function. Functional gains: Improved postural alignment Improved gait quality Improved ability to perform transfers Improved ability to climb steps Improved balance / decreased risk of falls Increased endurance / activity tolerance Increased independence with HEP Increased strength Goals for Episode of Care: created on 07/06/19 through 09/05/19 Goals updated on 09/11/2019. [place] in home exercise program. (Met) Patient will increase strength of R LE and core musculature to 5/5 to allow for normalized gait mechanics and perform ADLs. (Met) Perform all daily activities, transfers and community ambulation with decreased report of symptoms/pain in 6-8 weeks.(Met) Improve postural awareness. (Met) Normal, independent gait with prosthesis and no assistive device. (Not Met)-progressing Planned Interventions, Frequency, and Duration: 2x/week, 8 weeks Total Number of Visits Planned: 16 Patient to be seen for Therapeutic exercise;Neuromuscula r re-education;Gait Training;Patient/Fami ly/Caregiver Education PLAN FOR NEXT VISIT: Continue to progress strengthening, balance and gait. May review stair negotiation with rail and cane. SUBJECTIVE: Patient Reason for Visit: Pt states he has been doing well with transfers and ambulation with 2 canes. He states his new prosthesis will be ordered this coming and should be in in about a week from then. Pain: Pain Pain Level: 0 Post Treatment Pain Post Treatment Pain Level: 0 OBJECTIVE MEASURES WITH LEVEL OF FUNCTION: LE Strength R Hip Flexion (L2): 5/5 R Hip ABduction: 5/5 R Hip ADduction: 5/5 L Hip Flexion (L2): 5/5 L Hip ABduction: 5/5 L Hip ADduction: 5/5 L Knee Extension (L3): 5/5 L Knee Flexion: 5/5 Functional Strength Sit/Stand: Independent with 2 canes. Gait Gait Device: Four-point Cane(Independent with 2 canes (LBQC), Therapist CGA with 1 cane ) TREATMENT: Therapeutic Exercise: 1: Standing hip abductions left 1x40 and right 2# 1x40 2: Standing hip extensions right 1x400 and left 1x40 with 2# weight 3: Step-ups- and- over blue and green (8) step in the parallel bars with B UE assist x 10 reps each direction. Also using 2 blue steps x 4 reps [address] ways. 4: NBOS with feet 1.5 inches apart balance x 2 min and x (51sec while talking) Skilled Intervention: Patient was educated in proper exercise technique and purpose for exercises. Reviewed and educated patient on additions/changes for home exercise program Skilled judgment was provided in selection of appropriate interventions. Correct performance of therapeutic exercises was facilitated with verbal and visual cuing. Patient education as noted. Objective measurements and reassessment. Gait Trainin: Ambulation with B quad canes 1 time around equipment. 3: Ambulation with B quad canes 1 time around equipment. Skilled Intervention: Patient was provided contact guard assistance, stand by assist during pre-gait/gait training to prevent falls and insure safety. Facilitated proper gait cycle with the use of verbal and visual cues for correction of gait deviations identified in the objective section above. Gait belt utilized during session for safety. Skilled judgment used to assess proper use of assistive device. Billing: [facility]: Therapeutic Exercise ([id number]): 1:1 time: 27 minutes (2 units: 23-37 mins) Gait Training ([id number]): 1:1 time: 15 minutes (1 unit: 8-22 mins) Total time: 42 minutes Radha Yu PT Letter Text Normal [facility] PROGRESSon 09-11-2019 PROGRESS HNO ID: [id number] Author: Radha (Pt) Gigi Service: ? Author Type: Physical Therapist Type: Progress Notes Filed: 09/11/2019 11:25 AM Note Text: Episode Visit Count: 18 Therapist That Will Oversee The Plan Of Care: Radha Yu Start of Care Date: 07/06/19 Onset Date: 01/26/19 Plan of Care Certification Date: 09/07/19 Patient Identified by Name and Date of : Yes REHABILITATION AND SPORTS THERAPY PHYSICAL THERAPY PROGRESS REPORT PLAN OF CARE UPDATE: Assessment: Albin Issa exhibits improvements in LE strength, gait and function. He continues to be limited with walking in the community. He is progressing as expected towards his therapy goals as demonstrated by: documented objective information regarding gait, strength and overall function. He will benefit from continued skilled therapy requiring skilled progression of strengthening and gait with gait training as he receives his new prosthesis in order to further improve safe and independent gait and function. Functional gains: Improved postural alignment Improved gait quality Improved ability to perform transfers Improved ability to climb steps Improved balance / decreased risk of falls Increased endurance / activity tolerance Increased independence with HEP Increased strength Goals for Episode of Care: created on 07/06/19 through 09/05/19 Goals updated on 09/11/2019. [place] in home exercise program. (Met) Patient will increase strength of R LE and core musculature to 5/5 to allow for normalized gait mechanics and perform ADLs. (Met) Perform all daily activities, transfers and community ambulation with decreased report of symptoms/pain in 6-8 weeks.(Met) Improve postural awareness. (Met) Normal, independent gait with prosthesis and no assistive device. (Not Met)-progressing Planned Interventions, Frequency, and Duration: 2x/week, 8 weeks Total Number of Visits Planned: 16 Patient to be seen for Therapeutic exercise;Neuromuscula r re-education;Gait Training;Patient/Fami ly/Caregiver Education PLAN FOR NEXT VISIT: Continue to progress strengthening, balance and gait. May review stair negotiation with rail and cane. SUBJECTIVE: Patient Reason for Visit: Pt states he has been doing well with transfers and ambulation with 2 canes. He states his new prosthesis will be ordered this coming and should be in in about a week from then. Pain: Pain Pain Level: 0 Post Treatment Pain Post Treatment Pain Level: 0 OBJECTIVE MEASURES WITH LEVEL OF FUNCTION: LE Strength R Hip Flexion (L2): 5/5 R Hip ABduction: 5/5 R Hip ADduction: 5/5 L Hip Flexion (L2): 5/5 L Hip ABduction: 5/5 L Hip ADduction: 5/5 L Knee Extension (L3): 5/5 L Knee Flexion: 5/5 Functional Strength Sit/Stand: Independent with 2 canes. Gait Gait Device: Four-point Cane(Independent with 2 canes (LBQC), Therapist CGA with 1 cane ) TREATMENT: Therapeutic Exercise: 1: Standing hip abductions left 1x40 and right 2# 1x40 2: Standing hip extensions right 1x400 and left 1x40 with 2# weight 3: Step-ups- and- over blue and green (8) step in the parallel bars with B UE assist x 10 reps each direction. Also using 2 blue steps x 4 [address] ways. 4: NBOS with feet 1.5 inches apart balance x 2 min and x (51sec while talking) Skilled Intervention: Patient was educated in proper exercise technique and purpose for exercises. Reviewed and educated patient on additions/changes for home exercise program Skilled judgment was provided in selection of appropriate interventions. Correct performance of therapeutic exercises was facilitated with verbal and visual cuing. Patient education as noted. Objective measurements and reassessment. Gait Trainin: Ambulation with B quad canes 1 time around equipment. 3: Ambulation with B quad canes 1 time around equipment. Skilled Intervention: Patient was provided contact guard assistance, stand by assist during pre-gait/gait training to prevent falls and insure safety. Facilitated proper gait cycle with the use of verbal and visual cues for correction of gait deviations identified in the objective section above. Gait belt utilized during session for safety. Skilled judgment used to assess proper use of assistive device. Billing: [facility]: Therapeutic Exercise ([id number]): 1:1 time: 27 minutes (2 units: 23-37 mins) Gait Training ([id number]): 1:1 time: 15 minutes (1 unit: 8-22 mins) Total time: 42 minutes ZANDRA Aldana [facility] CNTHERAPYon 09-04-2019 CNTHERAPY OT/PT/Speech Visit (PTWS) ALBIN ISSA ([id number]) 1955 M Date Time Provider Department 09/04/19 2:00 PM ANN MESSINA (PHILLIP) PTWS Date Time Provider Department Center 09/04/2019 2:00 PM [id number], NANCY (TECHNOLOGY ADMINISTRATOR) PTWS REPLACED BY [facility] Reason for Visit: Physical Therapy [503] Primary Visit Diagnosis:S/P AKA (above knee amputation), right (HCC) [Z89.611] Allergies As of Date: 09/04/2019 (Not on File) Date Reviewed: Never Reviewed Progress Notes: Fidel Sarmiento PT 09/04/2019 6:05 PM Signed Episode Visit Count: 17 Therapist That Will Oversee The Plan Of Care: Radha Yu Start of Care Date: 07/06/19 Onset Date: 01/26/19 Plan of Care Certification Date: 07/06/19 Patient Identified by Name and Date of : Yes REHABILITATION AND SPORTS THERAPY PHYSICAL THERAPY TREATMENT NOTE ASSESSMENT: Albin Issa demonstrated improvements in step up and over 4 steps with B quad canes. He had slight increase low back pain with side stepping with 1 quad cane which resolved with rest. The patient will continue to benefit from ongoing skilled physical therapy for gait and strength and plan of care update. PLAN FOR NEXT VISIT: POC update SUBJECTIVE: Patient Reason for Visit: Patient with no c/o pain and denies falls. He feels like he is doing good with walking with 2 quad canes. Pain: Pain Pain Level: 0 Post Treatment Pain Post Treatment Pain Level: 0 OBJECTIVE MEASURES WITH LEVEL OF FUNCTION: B lower extremity in supine symmetrical measuring from B greater trochanter to heel of shoes. NBOS with feet 1.5 inches apart balance x 2 minutes and therapist stopped patient at this time. TREATMENT: Therapeutic Exercise: 2: Standing hip abductions left 1x40 and right 2# 1x40 3: Standing hip extensions right 1x400 and left 1x40 with 2# weight 4: Step-ups- and- over blue and green (8) step in the parallel bars with B UE assist x 10 reps each direction 5: NBOS with feet 1.5 inches apart balance x 2 minutes and therapist stopped patient at this time. Skilled Intervention: Patient was educated in proper exercise technique and purpose for exercises. Skilled judgment was provided in selection of appropriate interventions. Correct performance of therapeutic exercises was facilitated with verbal cuing. Gait Trainin: Ambulation with B canes up and over 4 step x 3 each direction with CGA. 2: Ambulation with 1 quad cane forward around equipment and side stepping through equipment with CGA to minimal assist.(slight low back pain with side stepping ) 3: Ambulation with B quad canes 1 time around equipment. Skilled Intervention: Facilitated proper gait cycle with the use of verbal cues for correction of gait deviations identified in the objective section above. Gait belt utilized during session for safety. Billing: [facility]: Therapeutic Exercise ([id number]): 1:1 time: 23 minutes (2 units: 23-37 mins) Gait Training ([id number]): 1:1 time: 20 minutes (1 unit: 8-22 mins) Total time: 43 minutes Ann Messina PTRichard Sarmiento PT Previous Version [facility] PROGRESSon 09-04-2019 PROGRESS HNO ID: [id number] Author: Fidel Sarmiento Service: ? Author Type: Physical Therapist Type: Progress Notes Filed: 09/04/2019 6:05 PM Note Text: Episode Visit Count: 17 Therapist That Will Oversee The Plan Of Care: Mimi Yuissa Start of Care Date: 07/06/19 Onset Date: 01/26/19 Plan of Care Certification Date: 07/06/19 Patient Identified by Name and Date of : Yes REHABILITATION AND SPORTS THERAPY PHYSICAL THERAPY TREATMENT NOTE ASSESSMENT: Albin Issa demonstrated improvements in step up and over 4 steps with B quad canes. He had slight increase low back pain with side stepping with 1 quad cane which resolved with rest. The patient will continue to benefit from ongoing skilled physical therapy for gait and strength and plan of care update. PLAN FOR NEXT VISIT: POC update SUBJECTIVE: Patient Reason for Visit: Patient with no c/o pain and denies falls. He feels like he is doing good with walking with 2 quad canes. Pain: Pain Pain Level: 0 Post Treatment Pain Post Treatment Pain Level: 0 OBJECTIVE MEASURES WITH LEVEL OF FUNCTION: B lower extremity in supine symmetrical measuring from B greater trochanter to heel of shoes. NBOS with feet 1.5 inches apart balance x 2 minutes and therapist stopped patient at this time. TREATMENT: Therapeutic Exercise: 2: Standing hip abductions left 1x40 and right 2# 1x40 3: Standing hip extensions right 1x400 and left 1x40 with 2# weight 4: Step-ups- and- over blue and green (8) step in the parallel bars with B UE assist x 10 reps each direction 5: NBOS with feet 1.5 inches apart balance x 2 minutes and therapist stopped patient at this time. Skilled Intervention: Patient was educated in proper exercise technique and purpose for exercises. Skilled judgment was provided in selection of appropriate interventions. Correct performance of therapeutic exercises was facilitated with verbal cuing. Gait Trainin: Ambulation with B canes up and over 4 step x 3 each direction with CGA. 2: Ambulation with 1 quad cane forward around equipment and side stepping through equipment with CGA to minimal assist.(slight low back pain with side stepping ) 3: Ambulation with B quad canes 1 time around equipment. Skilled Intervention: Facilitated proper gait cycle with the use of verbal cues for correction of gait deviations identified in the objective section above. Gait belt utilized during session for safety. Billing: [facility]: Therapeutic Exercise ([id number]): 1:1 time: 23 minutes (2 units: 23-37 mins) Gait Training (23745): 1:1 time: 20 minutes (1 unit: 8-22 mins) Total time: 43 minutes Ann Messina PT-Eder Sarmiento PT Normal [facility] CNTHERAPYon 08-31-2019 CNTHERAPY OT/PT/Speech Visit (PTWS) ALBIN ISSA ([id number]) 1955 M Date Time Provider Department 08/31/19 1:15 PM ANN MESSINA (TECHNOLOGY ADMINISTRATOR) PTWS Date Time Provider Department Center 08/31/2019 1:15 PM [id number], NANCY (TECHNOLOGY ADMINISTRATOR) PTWS REPLACED BY [facility] Reason for Visit: Physical Therapy [503] Primary Visit Diagnosis:S/P AKA (above knee amputation), right ([facility]) [Z89.611] Allergies As of Date: 08/31/2019 (Not on File) Date Reviewed: Never Reviewed Progress Notes: Radha Yu, PT 08/31/2019 8:10 PM Signed Episode Visit Count: 16 Therapist That Will Oversee The Plan Of Care: Radha Yu Start of Care Date: 07/06/19 Onset Date: 01/26/19 Plan of Care Certification Date: 07/06/19 Patient Identified by Name and Date of : Yes REHABILITATION AND SPORTS THERAPY PHYSICAL THERAPY TREATMENT NOTE ASSESSMENT: Albin Issa demonstrated improvements in gait with 1 quad cane. He did have 2 minor toe catches requiring therapist assist. No pain with any weight bearing exercise. The patient will continue to benefit from ongoing skilled physical therapy for progression of gait with 1 quad cane and lower extremity strength. PLAN FOR NEXT VISIT: Progress hip strengthening, balance activities and gait progression. SUBJECTIVE: Patient Reason for Visit: Patient reports he is feeling good and has no pain. He denies falls since last seen. Pain: Pain Pain Level: 0 Post Treatment Pain Post Treatment Pain Level: 0 OBJECTIVE MEASURES WITH LEVEL OF FUNCTION: Improved gait with 1 quad cane and distance increasing with 2 quad cane assist. TREATMENT: Therapeutic Exercise: 1: side stepping in parallel bars 10 x 20 ft 2: Standing hip abductions left 1x40 and right 1.5# 1x50 3: Standing hip extensions right 1x30 and left 1x30 with 1.5# weight 4: Step-ups- and- over blue and green (8) step in the parallel bars with B UE assist x 8 reps each direction Skilled Intervention: Patient was educated in proper exercise technique and purpose for exercises. Skilled judgment was provided in selection of appropriate interventions. Correct performance of therapeutic exercises was facilitated with verbal cuing. Gait Trainin: Ambulation on level with B quad canes 170' x 1 with supervision. 2: Ambulation with 1 quad cane 140'x1 and around a chair with close supervision and CGA. Skilled Intervention: Facilitated proper gait cycle with the use of verbal cues for correction of gait deviations identified in the objective section above. Gait belt used for safety. Billing: [facility]: Therapeutic Exercise ([id number]): 1:1 time: 28 minutes (2 units: 23-37 mins) Gait Training ([id number]): 1:1 time: 17 minutes (1 unit: 8-22 mins) Total time: 45 minutes MOE Puga PT Previous Version Normal [facility] PROGRESSon 08-31-2019 PROGRESS HNO ID: [id number] Author: Radha Yu Service: ? Author Type: Physical Therapist Type: Progress Notes Filed: 08/31/2019 8:10 PM Note Text: Episode Visit Count: 16 Therapist That Will Oversee The Plan Of Care: Radha Yu Start of Care Date: 07/06/19 Onset Date: 01/26/19 Plan of Care Certification Date: 07/06/19 Patient Identified by Name and Date of : Yes REHABILITATION AND SPORTS THERAPY PHYSICAL THERAPY TREATMENT NOTE ASSESSMENT: Albin Issa demonstrated improvements in gait with 1 quad cane. He did have 2 minor toe catches requiring therapist assist. No pain with any weight bearing exercise. The patient will continue to benefit from ongoing skilled physical therapy for progression of gait with 1 quad cane and lower extremity strength. PLAN FOR NEXT VISIT: Progress hip strengthening, balance activities and gait progression. SUBJECTIVE: Patient Reason for Visit: Patient reports he is feeling good and has no pain. He denies falls since last seen. Pain: Pain Pain Level: 0 Post Treatment Pain Post Treatment Pain Level: 0 OBJECTIVE MEASURES WITH LEVEL OF FUNCTION: Improved gait with 1 quad cane and distance increasing with 2 quad cane assist. TREATMENT: Therapeutic Exercise: 1: side stepping in parallel bars 10 x 20 ft 2: Standing hip abductions left 1x40 and right 1.5# 1x50 3: Standing hip extensions right 1x30 and left 1x30 with 1.5# weight 4: Step-ups- and- over blue and green (8) step in the parallel bars with B UE assist x 8 reps each direction Skilled Intervention: Patient was educated in proper exercise technique and purpose for exercises. Skilled judgment was provided in selection of appropriate interventions. Correct performance of therapeutic exercises was facilitated with verbal cuing. Gait Trainin: Ambulation on level with B quad canes 170' x 1 with supervision. 2: Ambulation with 1 quad cane 140'x1 and around a chair with close supervision and CGA. Skilled Intervention: Facilitated proper gait cycle with the use of verbal cues for correction of gait deviations identified in the objective section above. Gait belt used for safety. Billing: [facility]: Therapeutic Exercise ([id number]): 1:1 time: 28 minutes (2 units: 23-37 mins) Gait Training ([id number]): 1:1 time: 17 minutes (1 unit: 8-22 mins) Total time: 45 minutes Ann Messina, PT-A Radha Yu, PT [facility] CNTHERAPYon 08-28-2019 CNTHERAPY OT/PT/Speech Visit (PTWS) ALBIN ISSA ([id number]) 1955 M Date Time Provider Department 08/28/19 1:45 PM RADHA YU (PT) PTWS Date Time Provider Department Center 08/28/2019 1:45 PM [id number] YU (PT) PTWS REPLACED BY [facility] Reason for Visit: Physical Therapy [503] Primary Visit Diagnosis:S/P AKA (above knee amputation), right (HCC) [Z89.611] Allergies As of Date: 08/28/2019 (Not on File) Date Reviewed: Never Reviewed Progress Notes: Radha Yu PT 08/28/2019 3:56 PM Signed Episode Visit Count: 15 Therapist That Will Oversee The Plan Of Care: Radha Yu Start of Care Date: 07/06/19 Onset Date: 01/26/19 Plan of Care Certification Date: 07/06/19 Patient Identified by Name and Date of : Yes REHABILITATION AND SPORTS THERAPY PHYSICAL THERAPY TREATMENT NOTE ASSESSMENT: Albin Issa demonstrated improvements in gait with only one quad cane and therapist CGA. The patient will continue to benefit from ongoing skilled physical therapy for strengthening, balance and gait progression. PLAN FOR NEXT VISIT: Progress hip strengthening, balance activities and gait progression. SUBJECTIVE: Patient Reason for Visit: Pt states he saw the geospatial intelligence analyst yesterday and they are discussing starting the ordering process for his new prosthesis with the electric knee. Pain: Pain Pain Level: 0 Post Treatment Pain Post Treatment Pain Level: 0 OBJECTIVE MEASURES WITH LEVEL OF FUNCTION: Gait Gait Device: Four-point Cane(x2 canes independently, x1 cane with therapist CGA) TREATMENT: Therapeutic Exercise: 1: side stepping in parallel bars 8 x 20 ft 2: Standing hip abductions left 1x30 and right 1.5# 1x30 3: Standing hip extensions right 1x30 and left 1x30 with 1.5# weight 4: Step-ups- and- over blue and green (8) step in the parallel bars with B UE assist x 10 reps each direction Skilled Intervention: Patient was educated in proper exercise technique and purpose for exercises. Reviewed and educated patient on additions/changes for home exercise program Skilled judgment was provided in selection of appropriate interventions. Correct performance of therapeutic exercises was facilitated with verbal and visual cuing. Patient education as noted. Gait Trainin: Ambulation on level with B quad canes 150' x 1 with supervision. 2: Ambulation with 1 quad cane 140'x1 with close supervision and CGA. Skilled Intervention: Patient was provided contact guard assistance, stand by assist during pre-gait/gait training to prevent falls and insure safety. Facilitated proper gait cycle with the use of verbal and visual cues for correction of gait deviations identified in the objective section above. Gait belt utilized during session for safety. Skilled judgment used to assess proper sizing and proper use of assistive device. Skilled judgment used to assess proper use of orthotic device; Billing: [facility]: Therapeutic Exercise ([id number]): 1:1 time: 20 minutes (1 unit: 8-22 mins) Gait Training ([id number]): 1:1 time: 17 minutes (1 unit: 8-22 mins) Total time: 37 minutes (Pt was late d/t garage door breaking.) Radha Yu PT [facility] PROGRESSon 08-28-2019 PROGRESS HNO ID: [id number] Author: Radha (Pt) Gigi Service: ? Author Type: Physical Therapist Type: Progress Notes Filed: 08/28/2019 3:56 PM Note Text: Episode Visit Count: 15 Therapist That Will Oversee The Plan Of Care: Radha Yu Start of Care Date: 07/06/19 Onset Date: 01/26/19 Plan of Care Certification Date: 07/06/19 Patient Identified by Name and Date of : Yes REHABILITATION AND SPORTS THERAPY PHYSICAL THERAPY TREATMENT NOTE ASSESSMENT: Albin sIsa demonstrated improvements in gait with only one quad cane and therapist CGA. The patient will continue to benefit from ongoing skilled physical therapy for strengthening, balance and gait progression. PLAN FOR NEXT VISIT: Progress hip strengthening, balance activities and gait progression. SUBJECTIVE: Patient Reason for Visit: Pt states he saw the geospatial intelligence analyst yesterday and they are discussing starting the ordering process for his new prosthesis with the electric knee. Pain: Pain Pain Level: 0 Post Treatment Pain Post Treatment Pain Level: 0 OBJECTIVE MEASURES WITH LEVEL OF FUNCTION: Gait Gait Device: Four-point Cane(x2 canes independently, x1 cane with therapist CGA) TREATMENT: Therapeutic Exercise: 1: side stepping in parallel bars 8 x 20 ft 2: Standing hip abductions left 1x30 and right 1.5# 1x30 3: Standing hip extensions right 1x30 and left 1x30 with 1.5# weight 4: Step-ups- and- over blue and green (8) step in the parallel bars with B UE assist x 10 reps each direction Skilled Intervention: Patient was educated in proper exercise technique and purpose for exercises. Reviewed and educated patient on additions/changes for home exercise program Skilled judgment was provided in selection of appropriate interventions. Correct performance of therapeutic exercises was facilitated with verbal and visual cuing. Patient education as noted. Gait Trainin: Ambulation on level with B quad canes 150' x 1 with supervision. 2: Ambulation with 1 quad cane 140'x1 with close supervision and CGA. Skilled Intervention: Patient was provided contact guard assistance, stand by assist during pre-gait/gait training to prevent falls and insure safety. Facilitated proper gait cycle with the use of verbal and visual cues for correction of gait deviations identified in the objective section above. Gait belt utilized during session for safety. Skilled judgment used to assess proper sizing and proper use of assistive device. Skilled judgment used to assess proper use of orthotic device; Billing: [facility]: Therapeutic Exercise ([id number]): 1:1 time: 20 minutes (1 unit: 8-22 mins) Gait Training ([id number]): 1:1 time: 17 minutes (1 unit: 8-22 mins) Total time: 37 minutes (Pt was late d/t garage door breaking.) Radha Yu, PT [facility] CNTHERAPYon 08-26-2019 CNTHERAPY OT/PT/Speech Visit (PTWS) ALBIN ISSA ([id number]) 1955 M Date Time Provider Department 08/26/19 2:15 PM ANN MESSINA (TECHNOLOGY ADMINISTRATOR) PTWS Date Time Provider Department Center 08/26/2019 2:15 PM [id number], NANCY (TECHNOLOGY ADMINISTRATOR) PTWS REPLACED BY [facility] Reason for Visit: Physical Therapy [503] Primary Visit Diagnosis:S/P AKA (above knee amputation), right ([facility]) [Z89.611] Allergies As of Date: 08/26/2019 (Not on File) Date Reviewed: Never Reviewed Progress Notes: Radha Yu PT 08/26/2019 5:33 PM Signed Episode Visit Count: 14 Therapist That Will Oversee The Plan Of Care: Radha Yu Start of Care Date: 07/06/19 Onset Date: 01/26/19 Plan of Care Certification Date: 07/06/19 Patient Identified by Name and Date of : Yes REHABILITATION AND SPORTS THERAPY PHYSICAL THERAPY TREATMENT NOTE ASSESSMENT: Albin Issa demonstrated improvements in gait on level with 1 quad cane in therapy today. Patient was instructed to not use 1 cane yet at home for safety and he understood. The patient will continue to benefit from ongoing skilled physical therapy for progression of gait with 1 quad cane. PLAN FOR NEXT VISIT: Continue with strengthening, balance and gait progression. SUBJECTIVE: Patient Reason for Visit: Patient reports good tolerance to last treatment. He reports no pain and denies falls. Pain: Pain Pain Level: 0 Post Treatment Pain Post Treatment Pain Level: No Change OBJECTIVE MEASURES WITH LEVEL OF FUNCTION: Close contact guard assist for ambulation on level with 1 quad cane. TREATMENT: Therapeutic Exercise: 1: Standing hip abductions left 1.5 1x30 and right 2x15 2: Standing hip extensions right 1x10 and left 2x15 with 1.5# weight 4: Step-ups- and- over blue and green (8) step in the parallel bars with B UE assist x 10 reps each direction Skilled Intervention: Patient was educated in proper exercise technique and purpose for exercises. Skilled judgment was provided in selection of appropriate interventions. Correct performance of therapeutic exercises was facilitated with verbal cuing. Gait Trainin: Ambulation on level with B quad canes 150' x 1 with supervision. 2: Ambulation with 1 quad cane 140'x1 with close supervision and CGA. 3: Ambulation in // bars with 1 hand hold assist up and over 6 blue step simulating a curb back and forth x 3 4: Adjusted B quad cane 2 notches shorter and patient with better posture and decreased pressure through arms. Skilled Intervention: Facilitated proper gait cycle with the use of verbal cues for correction of gait deviations identified in the objective section above. Gait belt utilized during session for safety. Billing: [facility]: Therapeutic Exercise ([id number]): 1:1 time: 15 minutes (1 unit: 8-22 mins) Gait Training ([id number]): 1:1 time: 25 minutes (2 units: 23-37 mins) Total time: 40 minutes Ann Messina PT-Eder Yu PT Previous Version [facility] PROGRESSon 08-26-2019 PROGRESS HNO ID: [id number] Author: Radha (Pt) Gigi Service: ? Author Type: Physical Therapist Type: Progress Notes Filed: 08/26/2019 5:33 PM Note Text: Episode Visit Count: 14 Therapist That Will Oversee The Plan Of Care: Radha Yu Start of Care Date: 07/06/19 Onset Date: 01/26/19 Plan of Care Certification Date: 07/06/19 Patient Identified by Name and Date of : Yes REHABILITATION AND SPORTS THERAPY PHYSICAL THERAPY TREATMENT NOTE ASSESSMENT: Albin Issa demonstrated improvements in gait on level with 1 quad cane in therapy today. Patient was instructed to not use 1 cane yet at home for safety and he understood. The patient will continue to benefit from ongoing skilled physical therapy for progression of gait with 1 quad cane. PLAN FOR NEXT VISIT: Continue with strengthening, balance and gait progression. SUBJECTIVE: Patient Reason for Visit: Patient reports good tolerance to last treatment. He reports no pain and denies falls. Pain: Pain Pain Level: 0 Post Treatment Pain Post Treatment Pain Level: No Change OBJECTIVE MEASURES WITH LEVEL OF FUNCTION: Close contact guard assist for ambulation on level with 1 quad cane. TREATMENT: Therapeutic Exercise: 1: Standing hip abductions left 1.5 1x30 and right 2x15 2: Standing hip extensions right 1x10 and left 2x15 with 1.5# weight 4: Step-ups- and- over blue and green (8) step in the parallel bars with B UE assist x 10 reps each direction Skilled Intervention: Patient was educated in proper exercise technique and purpose for exercises. Skilled judgment was provided in selection of appropriate interventions. Correct performance of therapeutic exercises was facilitated with verbal cuing. Gait Trainin: Ambulation on level with B quad canes 150' x 1 with supervision. 2: Ambulation with 1 quad cane 140'x1 with close supervision and CGA. 3: Ambulation in // bars with 1 hand hold assist up and over 6 blue step simulating a curb back and forth x 3 4: Adjusted B quad cane 2 notches shorter and patient with better posture and decreased pressure through arms. Skilled Intervention: Facilitated proper gait cycle with the use of verbal cues for correction of gait deviations identified in the objective section above. Gait belt utilized during session for safety. Billing: [facility]: Therapeutic Exercise ([id number]): 1:1 time: 15 minutes (1 unit: 8-22 mins) Gait Training ([id number]): 1:1 time: 25 minutes (2 units: 23-37 mins) Total time: 40 minutes Ann Messina PT-Eder Yu PT [facility] CNTHERAPYon 08-24-2019 CNTHERAPY OT/PT/Speech Visit (PTWS) ALBIN ISSA ([id number]) 1955 M Date Time Provider Department 08/24/19 2:00 PM SIDDHARTHANN WOODARD (TECHNOLOGY ADMINISTRATOR) PTWS Date Time Provider Department Center 08/24/2019 2:00 PM [id number], NANCY (TECHNOLOGY ADMINISTRATOR) PTWS REPLACED BY [facility] Reason for Visit: Physical Therapy [503] Primary Visit Diagnosis:S/P AKA (above knee amputation), right (HCC) [Z89.611] Allergies As of Date: 08/24/2019 (Not on File) Date Reviewed: Never Reviewed Progress Notes: Radha Yu, PT 08/24/2019 3:26 PM Signed Episode Visit Count: 13 Therapist That Will Oversee The Plan Of Care: Radha Yu Start of Care Date: 07/06/19 Onset Date: 01/26/19 Plan of Care Certification Date: 07/06/19 Patient Identified by Name and Date of : Yes REHABILITATION AND SPORTS THERAPY PHYSICAL THERAPY TREATMENT NOTE ASSESSMENT: Albin Issa demonstrated improvements in gait with B quad canes on level surface. Advanced to 1 quad cane and // bars and 1 quad cane with therapist providing close contact guard assist and chair behind for safety. Instructed patient not to use 1 quad cane at home at current time. The patient will continue to benefit from ongoing skilled physical therapy for progression of strength, gait and balance. PLAN FOR NEXT VISIT: Continue with strengthening, balance and gait progression. SUBJECTIVE: Patient Reason for Visit: Patient reports no pain currently and he denies falls. He reports using quad canes at home. He reports if he is done going out for the day he will take his prosthesis off and uses his W/C Pain: Pain Pain Level: 0 Post Treatment Pain Post Treatment Pain Level: No Change OBJECTIVE MEASURES WITH LEVEL OF FUNCTION: B quad canes used during gait with good control around obstacles. TREATMENT: Therapeutic Exercise: 1: Standing hip abductions B 1.5# 2x15 2: Standing hip extensions B 1.5# 2x15 3: side stepping in parallel bars 6 x 20 ft 4: Step-ups- and- over blue and green (8) step in the parallel bars with B UE assist x 10 reps each direction Skilled Intervention: Patient was educated in proper exercise technique and purpose for exercises. Skilled judgment was provided in selection of appropriate interventions. Correct performance of therapeutic exercises was facilitated with verbal and visual cuing. Gait Trainin: Amb with LBQC in fi[place] 8 movements around 2 hurdles x 3 rounds 2: Ambulation with 1 hand hold on // bars back and forth x 3. 3: Ambulation on level with 1 quad cane with close guarding with a chair behind x 20' x 1. Skilled Intervention: Facilitated proper gait cycle with the use of verbal cues for correction of gait deviations identified in the objective section above. Gait belt utilized during session for safety. Billing: [facility]: Therapeutic Exercise ([id number]): 1:1 time: 15 minutes (1 unit: 8-22 mins) Gait Training (05655): 1:1 time: 30 minutes (2 units: 23-37 mins) Total time: 45 minutes MOE Puga PT Previous Version [facility] PROGRESSon 08-24-2019 PROGRESS HNO ID: [id number] Author: Radha (Pt) Gigi Service: ? Author Type: Physical Therapist Type: Progress Notes Filed: 08/24/2019 3:26 PM Note Text: Episode Visit Count: 13 Therapist That Will Oversee The Plan Of Care: Radha Yu Start of Care Date: 07/06/19 Onset Date: 01/26/19 Plan of Care Certification Date: 07/06/19 Patient Identified by Name and Date of : Yes REHABILITATION AND SPORTS THERAPY PHYSICAL THERAPY TREATMENT NOTE ASSESSMENT: Albin Issa demonstrated improvements in gait with B quad canes on level surface. Advanced to 1 quad cane and // bars and 1 quad cane with therapist providing close contact guard assist and chair behind for safety. Instructed patient not to use 1 quad cane at home at current time. The patient will continue to benefit from ongoing skilled physical therapy for progression of strength, gait and balance. PLAN FOR NEXT VISIT: Continue with strengthening, balance and gait progression. SUBJECTIVE: Patient Reason for Visit: Patient reports no pain currently and he denies falls. He reports using quad canes at home. He reports if he is done going out for the day he will take his prosthesis off and uses his W/C Pain: Pain Pain Level: 0 Post Treatment Pain Post Treatment Pain Level: No Change OBJECTIVE MEASURES WITH LEVEL OF FUNCTION: B quad canes used during gait with good control around obstacles. TREATMENT: Therapeutic Exercise: 1: Standing hip abductions B 1.5# 2x15 2: Standing hip extensions B 1.5# 2x15 3: side stepping in parallel bars 6 x 20 ft 4: Step-ups- and- over blue and green (8) step in the parallel bars with B UE assist x 10 reps each direction Skilled Intervention: Patient was educated in proper exercise technique and purpose for exercises. Skilled judgment was provided in selection of appropriate interventions. Correct performance of therapeutic exercises was facilitated with verbal and visual cuing. Gait Trainin: Amb with LBQC in [place] 8 movements around 2 hurdles x 3 rounds 2: Ambulation with 1 hand hold on // bars back and forth x 3. 3: Ambulation on level with 1 quad cane with close guarding with a chair behind x 20' x 1. Skilled Intervention: Facilitated proper gait cycle with the use of verbal cues for correction of gait deviations identified in the objective section above. Gait belt utilized during session for safety. Billing: [facility]: Therapeutic Exercise ([id number]): 1:1 time: 15 minutes (1 unit: 8-22 mins) Gait Training ([id number]): 1:1 time: 30 minutes (2 units: 23-37 mins) Total time: 45 minutes MOE Puga PT [facility] CNTHERAPYon 08-19-2019 CNTHERAPY OT/PT/Speech Visit (PTWS) ALBIN ISSA ([id number]) 1955 M Date Time Provider Department 08/19/19 11:00 AM RADHA YU (PT) PTWS Date Time Provider Department Center 08/19/2019 11:00 AM [id number] (PT) PTWS REPLACED BY [facility] Reason for Visit: Physical Therapy [503] Primary Visit Diagnosis:S/P AKA (above knee amputation), right ([facility]) [Z89.611] Other Visit Diagnosis:Liposarcoma of thigh, 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 Pt still requires 2-3 seated rest breaks, but tolerates increased time and activity between breaks. The patient will continue to benefit from ongoing skilled physical therapy for strengthening, balance, endurance and gait. PLAN FOR NEXT VISIT: Continue with strengthening, balance and gait progression. SUBJECTIVE: Patient Reason for Visit: Pt reports he is ambulating with prostheis and 2 LB quad canes when out of the home. When at home, he doesn't always wear the prosthesis and will ambulate with rollator or use w/c. He notes that he is able to ascend and descend his front step to enter/exit home as well as 2 steps through the garage using his canes. He also notes that he feels more comfortable utilizing a curb step over a ramp when outside. Pain: Pain Pain Level: 0 Post Treatment Pain Post Treatment Pain Level: 0 OBJECTIVE MEASURES WITH LEVEL OF FUNCTION: Balance Static Standing Balance: B 2 min TREATMENT: Therapeutic Exercise: 1: Standing hip abductions 2 x 30 reps 2: Standing hip extensions 2 x 40reps 3: side stepping in parallel bars 6 x 20 ft 4: Step-ups- and- over blue and green (8) step in the parallel bars with B UE assist x 25 reps 5: L LE heel raises (with UE assist for balance) 2 x 20 reps 6: hip hiking R LE 3 x 20 reps Skilled Intervention: Patient was educated in proper exercise technique and purpose for exercises. Reviewed and educated patient on additions/changes for home exercise program and encouraged increased activity in weight bearing through the day at home. Skilled judgment was provided in selection of appropriate interventions. Correct performance of therapeutic exercises was facilitated with verbal and visual cuing. Patient education as noted. Gait Trainin: Amb with LBQC x2, x 50 feet, 2 x 100ft with therapist SBA to supervision 2: B LE balancing without UE assist. (In paralle bars with therapist SBA) x 2 min Skilled Intervention: Patient was provided stand by assist, supervision during pre-gait/gait training to prevent falls and insure safety. Skilled judgment used to assess proper use of assistive device. Billing: [facility]: Therapeutic Exercise ([id number]): 1:1 time: 25 minutes (2 units: 23-37 mins) Gait Training ([id number]): 1:1 time: 20 minutes (1 unit: 8-22 mins) Total time: 45 minutes Radha Yu PT [facility] PROGRESSon 08-19-2019 PROGRESS HNO ID: [id number] Author: Radha (Pt) Gigi Service: ? Author Type: Physical Therapist Type: Progress Notes Filed: 08/19/2019 12:50 PM Note Text: Episode Visit Count: 12 Therapist That Will Oversee The Plan Of Care: Radha Yu Start of Care Date: 07/06/19 Onset Date: 01/26/19 Plan of Care Certification Date: 07/06/19 Patient Identified by Name and Date of : Yes REHABILITATION AND SPORTS THERAPY PHYSICAL THERAPY TREATMENT NOTE ASSESSMENT: Albin Zazueta Luis Manuel demonstrated improvements in gait, endurance and balance. Pt still requires 2-3 seated rest breaks, but tolerates increased time and activity between breaks. The patient will continue to benefit from ongoing skilled physical therapy for strengthening, balance, endurance and gait. PLAN FOR NEXT VISIT: Continue with strengthening, balance and gait progression. SUBJECTIVE: Patient Reason for Visit: Pt reports he is ambulating with prostheis and 2 LB quad canes when out of the home. When at home, he doesn't always wear the prosthesis and will ambulate with rollator or use w/c. He notes that he is able to ascend and descend his front step to enter/exit home as well as 2 steps through the garage using his canes. He also notes that he feels more comfortable utilizing a curb step over a ramp when outside. Pain: Pain Pain Level: 0 Post Treatment Pain Post Treatment Pain Level: 0 OBJECTIVE MEASURES WITH LEVEL OF FUNCTION: Balance Static Standing Balance: B 2 min TREATMENT: Therapeutic Exercise: 1: Standing hip abductions 2 x 30 reps 2: Standing hip extensions 2 x 40reps 3: side stepping in parallel bars 6 x 20 ft 4: Step-ups- and- over blue and green (8) step in the parallel bars with B UE assist x 25 reps 5: L LE heel raises (with UE assist for balance) 2 x 20 reps 6: hip hiking R LE 3 x 20 reps Skilled Intervention: Patient was educated in proper exercise technique and purpose for exercises. Reviewed and educated patient on additions/changes for home exercise program and encouraged increased activity in weight bearing through the day at home. Skilled judgment was provided in selection of appropriate interventions. Correct performance of therapeutic exercises was facilitated with verbal and visual cuing. Patient education as noted. Gait Trainin: Amb with LBQC x2, x 50 feet, 2 x 100ft with therapist SBA to supervision 2: B LE balancing without UE assist. (In paralle bars with therapist SBA) x 2 min Skilled Intervention: Patient was provided stand by assist, supervision during pre-gait/gait training to prevent falls and insure safety. Skilled judgment used to assess proper use of assistive device. Billing: [facility]: Therapeutic Exercise ([id number]): 1:1 time: 25 minutes (2 units: 23-37 mins) Gait Training ([id number]): 1:1 time: 20 minutes (1 unit: 8-22 mins) Total time: 45 minutes Radha Yu PT [facility] CNTHERAPYon 08-12-2019 CNTHERAPY OT/PT/Speech Visit (PTWS) ALBIN ISSA ([id number]) 1955 M Date Time Provider Department 08/12/19 1:30 PM RADHA YU (PT) PTWS Date Time Provider Department Center 08/12/2019 1:30 PM [id number] YU (PT) [facility] [facility] Reason for Visit: Physical Therapy [503] Primary Visit Diagnosis:S/P AKA (above knee amputation), right (HCC) [Z89.611] Other Visit Diagnosis:Liposarcoma of thigh, 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 The patient will continue to benefit from ongoing skilled physical therapy for strengthening and advancement of gait. PLAN FOR NEXT VISIT: SUBJECTIVE: Patient Reason for Visit: Pt states he has used his 2 LBQcanes to negotiate up and down his ramp at home to enter and exit home. Pain: Pain Pain Level: 0 OBJECTIVE MEASURES WITH LEVEL OF FUNCTION: Gait Gait Device: Four-point Cane(x2) TREATMENT: Therapeutic Exercise: 1: Standing hip abductions 2 x 40 reps 2: Standing hip extensions 2 x 40reps 3: side stepping in parallel bars 5 x 20 ft 4: Step-ups- and- over blue and green (8) step in the parallel bars with B UE assist 2 x 10reps 5: L LE heel raises (with UE assist for balance) 2 x 20 reps 6: hip hiking R LE 3 x 20 reps Skilled Intervention: Patient was educated in proper exercise technique and purpose for exercises. Reviewed and educated patient on additions/changes for home exercise program Skilled judgment was provided in selection of appropriate interventions. Correct performance of therapeutic exercises was facilitated with verbal and visual cuing. Patient education as noted. Gait Trainin: Amb with LBQC (L UE) and SBQC (R UE) 2 x 50 feet, 1 x 80ft, 1 x 100ft with therapist CGA Skilled Intervention: Patient was provided contact guard assistance, supervision during pre-gait/gait training to prevent falls and insure safety. Facilitated proper gait cycle with the use of verbal and visual cues for correction of gait deviations identified in the objective section above. Gait belt utilized during session for safety. (Not during activities in parallel bars.) Billing: [facility]: Therapeutic Exercise ([id number]): 1:1 time: 25 minutes (2 units: 23-37 mins) Gait Training ([id number]): 1:1 time: 20 minutes (1 unit: 8-22 mins) Total time: 45 minutes Radha Yu PT [facility] PROGRESSon 08-12-2019 PROGRESS HNO ID: [id number] Author: Radha (PtBarbie Yu Service: ? Author Type: Physical Therapist Type: Progress Notes Filed: 08/12/2019 2:37 PM Note Text: Episode Visit Count: 11 Therapist That Will Oversee The Plan Of Care: Radha Yu Start of Care Date: 07/06/19 Onset Date: 01/26/19 Plan of Care Certification Date: 07/06/19 Patient Identified by Name and Date of : Yes REHABILITATION AND SPORTS THERAPY PHYSICAL THERAPY TREATMENT NOTE ASSESSMENT: Albin Issa demonstrated improvements in ambulation with 2 LBQcanes and less assistance required. The patient will continue to benefit from ongoing skilled physical therapy for strengthening and advancement of gait. PLAN FOR NEXT VISIT: SUBJECTIVE: Patient Reason for Visit: Pt states he has used his 2 LBQcanes to negotiate up and down his ramp at home to enter and exit home. Pain: Pain Pain Level: 0 OBJECTIVE MEASURES WITH LEVEL OF FUNCTION: Gait Gait Device: Four-point Cane(x2) TREATMENT: Therapeutic Exercise: 1: Standing hip abductions 2 x 40 reps 2: Standing hip extensions 2 x 40reps 3: side stepping in parallel bars 5 x 20 ft 4: Step-ups- and- over blue and green (8) step in the parallel bars with B UE assist 2 x 10reps 5: L LE heel raises (with UE assist for balance) 2 x 20 reps 6: hip hiking R LE 3 x 20 reps Skilled Intervention: Patient was educated in proper exercise technique and purpose for exercises. Reviewed and educated patient on additions/changes for home exercise program Skilled judgment was provided in selection of appropriate interventions. Correct performance of therapeutic exercises was facilitated with verbal and visual cuing. Patient education as noted. Gait Trainin: Amb with LBQC (L UE) and SBQC (R UE) 2 x 50 feet, 1 x 80ft, 1 x 100ft with therapist CGA Skilled Intervention: Patient was provided contact guard assistance, supervision during pre-gait/gait training to prevent falls and insure safety. Facilitated proper gait cycle with the use of verbal and visual cues for correction of gait deviations identified in the objective section above. Gait belt utilized during session for safety. (Not during activities in parallel bars.) Billing: [facility]: Therapeutic Exercise ([id number]): 1:1 time: 25 minutes (2 units: 23-37 mins) Gait Training ([id number]): 1:1 time: 20 minutes (1 unit: 8-22 mins) Total time: 45 minutes Radha Yu PT [facility] CNTHERAPYon 08-10-2019 CNTHERAPY OT/PT/Speech Visit (PTWS) ALBIN ISSA ([id number]) 1955 M Date Time Provider Department 08/10/19 12:45 PM RADHA YU (PT) PTWS Date Time Provider Department Center 08/10/2019 12:45 PM [id number] YU (PT) PTWS REPLACED BY [facility] [place] Reason for Visit: Physical Therapy [503] Primary Visit Diagnosis:S/P AKA (above knee amputation), right ([facility]) [Z89.611] Other Visit Diagnosis:Liposarcoma of thigh, 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 The patient will continue to benefit from ongoing skilled physical therapy for strengthening, balance and gait progression. PLAN FOR NEXT VISIT: Continue with strengthenign, balance and gait progression. May practice stairs again next visit. SUBJECTIVE: Patient Reason for Visit: Pt states his daughter is taking him to the [facility] today, but he is planning on using a wheelchair or motorized scooter. He states he can use the canes at home for short distances. He notes last night he was watching a movie in bed and elevated his head and feet. Then when he tried to move, he had pain in his low back. This resolved after several minutes and is just a little sore today. Pain: Pain Pain Level: (jus ta little sore, not rated numerically) Post Treatment Pain Post Treatment Pain Level: 0 OBJECTIVE MEASURES WITH LEVEL OF FUNCTION: Balance Static Standing Balance: B 63 sec Single Leg Stance: L 20 sec TREATMENT: Therapeutic Exercise: 1: Standing hip abductions 2 x 40 reps 2: Standing hip extensions 2 x 40reps 3: hip hiking R LE 3 x 20 reps 4: Step-ups- and- over blue and green (8) step in the parallel bars with B UE assist 2 x 10reps 5: L LE heel raises (with UE assist for balance) 1 x 20 reps Skilled Intervention: Patient was educated in proper exercise technique and purpose for exercises. Reviewed and educated patient on additions/changes for home exercise program Skilled judgment was provided in selection of appropriate interventions. Correct performance of therapeutic exercises was facilitated with verbal and visual cuing. Patient education as noted. Gait Trainin: Amb with LBQC (L UE) and SBQC (R UE) 2 x 50 feet with therapist CGA 2: B LE balancing without UE assist. (In paralle bars with therapist CGA/SBA) x 63 sec 3: L LE SLS (in parallel bars, without UE assist) several times to fatigue. Therapist CGA/SBA. 4: R LE SLS (in parallel bars, with UE assist) 2 times to fatigue. Therapist CGA/SBA. Skilled Intervention: Patient was provided contact guard assistance, stand by assist during pre-gait/gait training to prevent falls and insure safety. Facilitated proper gait cycle with the use of verbal cues for correction of gait deviations identified in the objective section above. Gait belt utilized during session for safety. Billing: [facility]: Therapeutic Exercise ([id number]): 1:1 time: 25 minutes (2 units: 23-37 mins) Gait Training ([id number]): 1:1 time: 20 minutes (1 unit: 8-22 mins) Total time: 45 minutes Radha Yu PT [facility] PROGRESSon 08-10-2019 PROGRESS HNO ID: [id number] Author: Radha (Pt) Gigi Service: ? Author Type: Physical Therapist Type: Progress Notes Filed: 08/10/2019 2:06 PM Note Text: Episode Visit Count: 10 Therapist That Will Oversee The Plan Of Care: Radha Yu Start of Care Date: 07/06/19 Onset Date: 01/26/19 Plan of Care Certification Date: 07/06/19 Patient Identified by Name and Date of : Yes REHABILITATION AND SPORTS THERAPY PHYSICAL THERAPY TREATMENT NOTE ASSESSMENT: Albin Issa demonstrated improvements in balance (B LE and SLS). The patient will continue to benefit from ongoing skilled physical therapy for strengthening, balance and gait progression. PLAN FOR NEXT VISIT: Continue with strengthenign, balance and gait progression. May practice stairs again next visit. SUBJECTIVE: Patient Reason for Visit: Pt states his daughter is taking him to the [facility] today, but he is planning on using a wheelchair or motorized scooter. He states he can use the canes at home for short distances. He notes last night he was watching a movie in bed and elevated his head and feet. Then when he tried to move, he had pain in his low back. This resolved after several minutes and is just a little sore today. Pain: Pain Pain Level: (jus ta little sore, not rated numerically) Post Treatment Pain Post Treatment Pain Level: 0 OBJECTIVE MEASURES WITH LEVEL OF FUNCTION: Balance Static Standing Balance: B 63 sec Single Leg Stance: L 20 sec TREATMENT: Therapeutic Exercise: 1: Standing hip abductions 2 x 40 reps 2: Standing hip extensions 2 x 40reps 3: hip hiking R LE 3 x 20 reps 4: Step-ups- and- over blue and green (8) step in the parallel bars with B UE assist 2 x 10reps 5: L LE heel raises (with UE assist for balance) 1 x 20 reps Skilled Intervention: Patient was educated in proper exercise technique and purpose for exercises. Reviewed and educated patient on additions/changes for home exercise program Skilled judgment was provided in selection of appropriate interventions. Correct performance of therapeutic exercises was facilitated with verbal and visual cuing. Patient education as noted. Gait Trainin: Amb with LBQC (L UE) and SBQC (R UE) 2 x 50 feet with therapist CGA 2: B LE balancing without UE assist. (In paralle bars with therapist CGA/SBA) x 63 sec 3: L LE SLS (in parallel bars, without UE assist) several times to fatigue. Therapist CGA/SBA. 4: R LE SLS (in parallel bars, with UE assist) 2 times to fatigue. Therapist CGA/SBA. Skilled Intervention: Patient was provided contact guard assistance, stand by assist during pre-gait/gait training to prevent falls and insure safety. Facilitated proper gait cycle with the use of verbal cues for correction of gait deviations identified in the objective section above. Gait belt utilized during session for safety. Billing: [facility]: Therapeutic Exercise ([id number]): 1:1 time: 25 minutes (2 units: 23-37 mins) Gait Training ([id number]): 1:1 time: 20 minutes (1 unit: 8-22 mins) Total time: 45 minutes Radha Yu PT [facility] CNTHERAPYon 08-07-2019 CNTHERAPY OT/PT/Speech Visit (PTWS) LUIS MANUELALBIN Eddie ([id number]) 1955 M Date Time Provider Department 08/07/19 11:00 AM RADHA YU (PT) PTWS Date Time Provider Department Center 08/07/2019 11:00 AM [id number] YU (PT) PTWS REPLACED BY [facility] [place] [facility] Reason for Visit: Physical Therapy [503] Primary Visit Diagnosis:S/P AKA (above knee amputation), right (HCC) [Z89.611] Allergies As of Date: 08/07/2019 (Not on File) Date Reviewed: Never Reviewed Progress Notes: Radha Yu PT 08/07/2019 12:43 PM Signed Episode Visit Count: 9 Therapist That Will Oversee The Plan Of Care: Radha Yu Start of Care Date: 07/06/19 Onset Date: 01/26/19 Plan of Care Certification Date: 07/06/19 Patient Identified by Name and Date of : Yes REHABILITATION AND SPORTS THERAPY PHYSICAL THERAPY TREATMENT NOTE ASSESSMENT: Albin Eddie Issa demonstrated improvements in performing stair negotiation (gait advancement). The patient will continue to benefit from ongoing skilled physical therapy for strengthening, balance and advancement of gait. PLAN FOR NEXT VISIT: Continue with strengthening, balance and progression of gait. SUBJECTIVE: Patient Reason for Visit: Pt states he is feeling more comfortable using the canes around the house. He still uses the rollator when out of the home. He states he does not feel comfortable using the ramp to enter his home, but is not able to use the 2 steps to enter with his rollator. Pain: Pain Pain Level: 0 Post Treatment Pain Post Treatment Pain Level: 0 OBJECTIVE MEASURES WITH LEVEL OF FUNCTION: Gait Gait Device: Four-point Cane(x2) TREATMENT: Therapeutic Exercise: 1: Standing hip abductions 2 x 40 reps 2: Standing hip extensions 2 x 40reps 3: side stepping in parallel bars 4 x 20 ft 4: hip hiking R LE 3 x 20 reps 5: Step-ups- and- over blue and green (8) step in the parallel bars with B UE assist 2 x 10reps Skilled Intervention: Patient was educated in proper exercise technique and purpose for exercises. Reviewed and educated patient on additions/changes for home exercise program Skilled judgment was provided in selection of appropriate interventions. Correct performance of therapeutic exercises was facilitated with verbal cuing. Patient education as noted. Gait Trainin: Amb with LBQC (L UE) and SBQC (R UE) 2 x 50 feet with therapist CGA 2: Instructed pt in stair negotiation using LBQC and railing to simulate his home set-up. 3: Pt ascended and descended 4 steps with LBQC and railing with therapist CGA. Skilled Intervention: Patient was provided contact guard assistance during pre-gait/gait training to prevent falls and insure safety. Facilitated proper gait cycle with the use of verbal and visual cues for correction of gait deviations identified in the objective section above. Gait belt utilized during session for safety. Skilled judgment used to assess selection and proper use of assistive device. Education provided to patient regarding the proper sequence for stair negotiation using LB quad cane and railing. Billing: [facility]: Therapeutic Exercise ([id number]): 1:1 time: 25 minutes (2 units: 23-37 mins) Gait Training ([id number]): 1:1 time: 20 minutes (1 unit: 8-22 mins) Total time: 45 minutes Radha Yu PT [facility] PROGRESSon 08-07-2019 PROGRESS HNO ID: [id number] Author: Radha (Pt) Gigi Service: ? Author Type: Physical Therapist Type: Progress Notes Filed: 08/07/2019 12:43 PM Note Text: Episode Visit Count: 9 Therapist That Will Oversee The Plan Of Care: Radha Yu Start of Care Date: 07/06/19 Onset Date: 01/26/19 Plan of Care Certification Date: 07/06/19 Patient Identified by Name and Date of : Yes REHABILITATION AND SPORTS THERAPY PHYSICAL THERAPY TREATMENT NOTE ASSESSMENT: Albin Issa demonstrated improvements in performing stair negotiation (gait advancement). The patient will continue to benefit from ongoing skilled physical therapy for strengthening, balance and advancement of gait. PLAN FOR NEXT VISIT: Continue with strengthening, balance and progression of gait. SUBJECTIVE: Patient Reason for Visit: Pt states he is feeling more comfortable using the canes around the house. He still uses the rollator when out of the home. He states he does not feel comfortable using the ramp to enter his home, but is not able to use the 2 steps to enter with his rollator. Pain: Pain Pain Level: 0 Post Treatment Pain Post Treatment Pain Level: 0 OBJECTIVE MEASURES WITH LEVEL OF FUNCTION: Gait Gait Device: Four-point Cane(x2) TREATMENT: Therapeutic Exercise: 1: Standing hip abductions 2 x 40 reps 2: Standing hip extensions 2 x 40reps 3: side stepping in parallel bars 4 x 20 ft 4: hip hiking R LE 3 x 20 reps 5: Step-ups- and- over blue and green (8) step in the parallel bars with B UE assist 2 x 10reps Skilled Intervention: Patient was educated in proper exercise technique and purpose for exercises. Reviewed and educated patient on additions/changes for home exercise program Skilled judgment was provided in selection of appropriate interventions. Correct performance of therapeutic exercises was facilitated with verbal cuing. Patient education as noted. Gait Trainin: Amb with LBQC (L UE) and SBQC (R UE) 2 x 50 feet with therapist CGA 2: Instructed pt in stair negotiation using LBQC and railing to simulate his home set-up. 3: Pt ascended and descended 4 steps with LBQC and railing with therapist CGA. Skilled Intervention: Patient was provided contact guard assistance during pre-gait/gait training to prevent falls and insure safety. Facilitated proper gait cycle with the use of verbal and visual cues for correction of gait deviations identified in the objective section above. Gait belt utilized during session for safety. Skilled judgment used to assess selection and proper use of assistive device. Education provided to patient regarding the proper sequence for stair negotiation using LB quad cane and railing. Billing: [facility]: Therapeutic Exercise ([id number]): 1:1 time: 25 minutes (2 units: 23-37 mins) Gait Training ([id number]): 1:1 time: 20 minutes (1 unit: 8-22 mins) Total time: 45 minutes Radha Yu PT [facility] CNTHERAPYon 08-05-2019 CNTHERAPY OT/PT/Speech Visit (PTWS) LUIS MANUELALBIN Eddie ([id number]) 1955 M Date Time Provider Department 08/05/19 9:30 AM RADHA YU (PT) PTWS Date Time Provider Department Center 08/05/2019 9:30 AM [id number] YU (PT) PTWS REPLACED BY [facility] [facility] Reason for Visit: Physical Therapy [503] Primary Visit Diagnosis:S/P AKA (above knee amputation), right ([facility]) [Z89.611] Other Visit Diagnosis:Liposarcoma of thigh, 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 He continues to be limited with standing, walking in the community and stair negotiation. He is progressing as expected towards his therapy goals as demonstrated by: documented subjective information on progress and documented objective information regarding gait, strength and overall function. He will benefit from continued skilled therapy requiring strengthening, balance and gait instruction in order to further improve LE strength, standing static and dynamic balance and progression of gait. Functional gains: Improved gait quality Improved ability to perform transfers Improved balance / decreased risk of falls Increased endurance / activity tolerance Increased independence with HEP Increased strength Goals for Episode of Care: created on 07/06/19 through 09/05/19 Goals updated on 08/05/2019. [place] in home exercise program. (Met) Patient will increase strength of R LE and core musculature to 5/5 to allow for normalized gait mechanics and perform ADLs. (Partially Met)-progressing Perform all daily activities, transfers and community ambulation with decreased report of symptoms/pain in 6-8 weeks.(Partially Met) Improve postural awareness. (Met) Normal, independent gait with prosthesis and no assistive device. (Not Met)-progressing Planned Interventions, Frequency, and Duration: 3x/week, 4 weeks Total Number of Visits Planned: 12 Patient to be seen for Therapeutic exercise;Neuromuscula r re-education;Gait Training;Patient/Fami ly/Caregiver Education PLAN FOR NEXT VISIT: Continue UE and LE strengthening, balance and gait advancement. May add hip hiking and resume UBE. SUBJECTIVE: Patient Reason for Visit: Pt states he has two LBquad canes at home and would like ot learn to use them. He feels that he is leaning over too much when using the rollater walker. Pain: Pain Pain Level: 0 Post Treatment Pain Post Treatment Pain Level: 0 OBJECTIVE MEASURES WITH LEVEL OF FUNCTION: LE Strength R Hip Flexion (L2): 5/5 L Hip Flexion (L2): 5/5 L Hip ADduction: 5/5 Gait Gait Device: Rollator Gait Observation: Pt ambulating with R AKA prosthesis and rollator walker independently demonstrating smooth gait pattern with near symmetrical weight bearing. TREATMENT: Therapeutic Exercise: 1: Standing hip abductions 2 x 40 reps 2: Standing hip extensions 2 x 40reps 3: side stepping in parallel bars 4 x 20 ft Skilled Intervention: Patient was educated in proper exercise technique and purpose for exercises. Reviewed and educated patient on additions/changes for home exercise program Skilled judgment was provided in selection of appropriate interventions. Correct performance of therapeutic exercises was facilitated with verbal and visual cuing. Patient education as noted. Gait Trainin: Step-ups- and- over blue and green (8) step in the parallel bars with B UE assist 2 x 10reps 2: Amb with LBQC (L UE) and SBQC (R UE) in parallel bars 4 x 20 feet with therapist CGA 3: Ambulation with LBQC and SBQC outside of parallel bars 3 x 20ft with therapist CGA including 180deg turns. Skilled Intervention: Patient was provided contact guard assistance during pre-gait/gait training to prevent falls and insure safety. Facilitated proper gait cycle with the use of verbal and visual cues for correction of gait deviations identified in the objective section above. Gait belt utilized during session for safety. Skilled judgment used to assess proper sizing and proper use of assistive device. Education provided to patient regarding the proper sequence for level surface and 180 deg turns negotiation. Billing: [facility]: Therapeutic Exercise ([id number]): 1:1 time: 18 minutes (1 unit: 8-22 mins) Gait Training ([id number]): 1:1 time: 25 minutes (2 units: 23-37 mins) Total time: 43 minutes Radha Yu PT [facility] PROGRESSon 08-05-2019 PROGRESS HNO ID: [id number] Author: Radha (Pt) Gigi Service: ? Author Type: Physical Therapist Type: Progress Notes Filed: 08/05/2019 4:48 PM Note Text: Episode Visit Count: 8 Therapist That Will Oversee The Plan Of Care: Radha Yu Start of Care Date: 07/06/19 Onset Date: 01/26/19 Plan of Care Certification Date: 07/06/19 Patient Identified by Name and Date of : Yes REHABILITATION AND SPORTS THERAPY PHYSICAL THERAPY PROGRESS REPORT PLAN OF CARE UPDATE: Assessment: Albin Issa exhibits improvements in balance, gait and LE strength. He continues to be limited with standing, walking in the community and stair negotiation. He is progressing as expected towards his therapy goals as demonstrated by: documented subjective information on progress and documented objective information regarding gait, strength and overall function. He will benefit from continued skilled therapy requiring strengthening, balance and gait instruction in order to further improve LE strength, standing static and dynamic balance and progression of gait. Functional gains: Improved gait quality Improved ability to perform transfers Improved balance / decreased risk of falls Increased endurance / activity tolerance Increased independence with HEP Increased strength Goals for Episode of Care: created on 07/06/19 through 09/05/19 Goals updated on 08/05/2019. [place] in home exercise program. (Met) Patient will increase strength of R LE and core musculature to 5/5 to allow for normalized gait mechanics and perform ADLs. (Partially Met)-progressing Perform all daily activities, transfers and community ambulation with decreased report of symptoms/pain in 6-8 weeks.(Partially Met) Improve postural awareness. (Met) Normal, independent gait with prosthesis and no assistive device. (Not Met)-progressing Planned Interventions, Frequency, and Duration: 3x/week, 4 weeks Total Number of Visits Planned: 12 Patient to be seen for Therapeutic exercise;Neuromuscula r re-education;Gait Training;Patient/Fami ly/Caregiver Education PLAN FOR NEXT VISIT: Continue UE and LE strengthening, balance and gait advancement. May add hip hiking and resume UBE. SUBJECTIVE: Patient Reason for Visit: Pt states he has two LBquad canes at home and would like ot learn to use them. He feels that he is leaning over too much when using the rollater walker. Pain: Pain Pain Level: 0 Post Treatment Pain Post Treatment Pain Level: 0 OBJECTIVE MEASURES WITH LEVEL OF FUNCTION: LE Strength R Hip Flexion (L2): 5/5 L Hip Flexion (L2): 5/5 L Hip ADduction: 5/5 Gait Gait Device: Rollator Gait Observation: Pt ambulating with R AKA prosthesis and rollator walker independently demonstrating smooth gait pattern with near symmetrical weight bearing. TREATMENT: Therapeutic Exercise: 1: Standing hip abductions 2 x 40 reps 2: Standing hip extensions 2 x 40reps 3: side stepping in parallel bars 4 x 20 ft Skilled Intervention: Patient was educated in proper exercise technique and purpose for exercises. Reviewed and educated patient on additions/changes for home exercise program Skilled judgment was provided in selection of appropriate interventions. Correct performance of therapeutic exercises was facilitated with verbal and visual cuing. Patient education as noted. Gait Trainin: Step-ups- and- over blue and green (8) step in the parallel bars with B UE assist 2 x 10reps 2: Amb with LBQC (L UE) and SBQC (R UE) in parallel bars 4 x 20 feet with therapist CGA 3: Ambulation with LBQC and SBQC outside of parallel bars 3 x 20ft with therapist CGA including 180deg turns. Skilled Intervention: Patient was provided contact guard assistance during pre-gait/gait training to prevent falls and insure safety. Facilitated proper gait cycle with the use of verbal and visual cues for correction of gait deviations identified in the objective section above. Gait belt utilized during session for safety. Skilled judgment used to assess proper sizing and proper use of assistive device. Education provided to patient regarding the proper sequence for level surface and 180 deg turns negotiation. Billing: [facility]: Therapeutic Exercise ([id number]): 1:1 time: 18 minutes (1 unit: 8-22 mins) Gait Training ([id number]): 1:1 time: 25 minutes (2 units: 23-37 mins) Total time: 43 minutes Radha Yu PT [facility] CNTHERAPYon 07-27-2019 CNTHERAPY OT/PT/Speech Visit (PTWS) ALBIN ISSA ([id number]) 1955 M Date Time Provider Department 07/27/19 8:30 AM RADHA YU (PT) PTWS Date Time Provider Department Center 07/27/2019 8:30 AM [id number] YU (PT) PTWS REPLACED BY [facility] Reason for Visit: Physical Therapy [503] Primary Visit Diagnosis:S/P AKA (above knee amputation), right (HCC) [Z89.611] Other Visit Diagnosis:Liposarcoma of thigh, 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 Pt is eager to advance to one ore two canes and no longer use the walker, but was advised to continue using walker when ambulating independently. The patient will continue to benefit from ongoing skilled physical therapy for strengthening, balance and gait advancement. PLAN FOR NEXT VISIT: Continue UE and LE strengthening, balance and gait advancement. May add hip hiking and UBE again next session. SUBJECTIVE: Patient Reason for Visit: Pt notes he had more adjustment made to his prosthesis last week. Pt states he continues to use the rollator walker even at home (has not been using the crutches). He states he feels he is putting less weight through his arms and walker when walking. Pain: Pain Pain Level: 0 Post Treatment Pain Post Treatment Pain Level: 0 OBJECTIVE MEASURES WITH LEVEL OF FUNCTION: Balance Static Standing Balance: B 50 sec Single Leg Stance: L 10 sec Pt required 3 seated rest periods during treatment. TREATMENT: Therapeutic Exercise: 1: side stepping in parallel bars 4 x 20 ft 2: Standing hip abductions 3 x 20 reps 3: Standing hip extensions 3 x 20reps 4: Weight bearing on R LE only with B UE assist on parallel bars up to 30 sec at a time 5: high knee marching at parallel bars 4 x 20ft Skilled Intervention: Patient was educated in proper exercise technique and purpose for exercises. Reviewed and educated patient on additions/changes for home exercise program and pt to increase reps /sets. Skilled judgment was provided in selection of appropriate interventions. Correct performance of therapeutic exercises was facilitated with verbal and visual cuing. Patient education as noted. Gait Trainin: Step-ups- and- over blue and green (8) step in the parallel bars with B UE assist 2 x 10reps 2: L LE SLS in parallel bars to fatigue (10 sec hold at longest without UE) 3: Amb with LBQC (L UE) and SBQC (R UE) in parallel bars 4 x 20 feet with therapist CGA 4: Ambulation with walker and focus on gait pattern x 60ft with SBA. Skilled Intervention: Facilitated proper gait cycle with the use of verbal and visual cues for correction of gait deviations identified in the objective section above. Gait belt utilized during session for safety. Skilled judgment used to assess proper sizing and proper use of assistive device. Education provided to patient regarding the proper sequence for level surfaces with 2 canes negotiation. Billing: [facility]: Therapeutic Exercise ([id number]): 1:1 time: 25 minutes (2 units: 23-37 mins) Gait Training ([id number]): 1:1 time: 20 minutes (1 unit: 8-22 mins) Total time: 45 minutes Radha Yu PT [facility] PROGRESSon 07-27-2019 PROGRESS HNO ID: [id number] Author: Radha (Pt) Gigi Service: ? Author Type: Physical Therapist Type: Progress Notes Filed: 07/27/2019 10:50 AM Note Text: Episode Visit Count: 7 Therapist That Will Oversee The Plan Of Care: Radha Yu Start of Care Date: 07/06/19 Onset Date: 01/26/19 Plan of Care Certification Date: 07/06/19 Patient Identified by Name and Date of : Yes REHABILITATION AND SPORTS THERAPY PHYSICAL THERAPY TREATMENT NOTE ASSESSMENT: Albin Issa demonstrated improvements in progression of exercises and progression of gait to 2 canes. Pt is eager to advance to one ore two canes and no longer use the walker, but was advised to continue using walker when ambulating independently. The patient will continue to benefit from ongoing skilled physical therapy for strengthening, balance and gait advancement. PLAN FOR NEXT VISIT: Continue UE and LE strengthening, balance and gait advancement. May add hip hiking and UBE again next session. SUBJECTIVE: Patient Reason for Visit: Pt notes he had more adjustment made to his prosthesis last week. Pt states he continues to use the rollator walker even at home (has not been using the crutches). He states he feels he is putting less weight through his arms and walker when walking. Pain: Pain Pain Level: 0 Post Treatment Pain Post Treatment Pain Level: 0 OBJECTIVE MEASURES WITH LEVEL OF FUNCTION: Balance Static Standing Balance: B 50 sec Single Leg Stance: L 10 sec Pt required 3 seated rest periods during treatment. TREATMENT: Therapeutic Exercise: 1: side stepping in parallel bars 4 x 20 ft 2: Standing hip abductions 3 x 20 reps 3: Standing hip extensions 3 x 20reps 4: Weight bearing on R LE only with B UE assist on parallel bars up to 30 sec at a time 5: high knee marching at parallel bars 4 x 20ft Skilled Intervention: Patient was educated in proper exercise technique and purpose for exercises. Reviewed and educated patient on additions/changes for home exercise program and pt to increase reps /sets. Skilled judgment was provided in selection of appropriate interventions. Correct performance of therapeutic exercises was facilitated with verbal and visual cuing. Patient education as noted. Gait Trainin: Step-ups- and- over blue and green (8) step in the parallel bars with B UE assist 2 x 10reps 2: L LE SLS in parallel bars to fatigue (10 sec hold at longest without UE) 3: Amb with LBQC (L UE) and SBQC (R UE) in parallel bars 4 x 20 feet with therapist CGA 4: Ambulation with walker and focus on gait pattern x 60ft with SBA. Skilled Intervention: Facilitated proper gait cycle with the use of verbal and visual cues for correction of gait deviations identified in the objective section above. Gait belt utilized during session for safety. Skilled judgment used to assess proper sizing and proper use of assistive device. Education provided to patient regarding the proper sequence for level surfaces with 2 canes negotiation. Billing: [facility]: Therapeutic Exercise ([id number]): 1:1 time: 25 minutes (2 units: 23-37 mins) Gait Training ([id number]): 1:1 time: 20 minutes (1 unit: 8-22 mins) Total time: 45 minutes Radha Yu PT [facility] CNTHERAPYon 07-22-2019 CNTHERAPY OT/PT/Speech Visit (PTWS) ALBIN ISSA ([id number]) 1955 M Date Time Provider Department 07/22/19 1:30 PM RADHA YU (PT) PTWS Date Time Provider Department Center 07/22/2019 1:30 PM [id number] YU (PT) PTWS REPLACED BY [facility] Reason for Visit: Physical Therapy [503] Primary Visit Diagnosis:S/P AKA (above knee amputation), right ([facility]) [Z89.611] Other Visit Diagnosis:Liposarcoma of thigh, 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 The patient will continue to benefit from ongoing skilled physical therapy for strength, balance and prosthetic gait. PLAN FOR NEXT VISIT: Continue UE and LE strengthening, balance and gait advancement. SUBJECTIVE: Patient Reason for Visit: Pt denies any muscle sorenss following last session. He has another f/u with the geospatial intelligence analyst tomorrow. Pain: Pain Pain Level: 0 Post Treatment Pain Post Treatment Pain Level: 0 OBJECTIVE MEASURES WITH LEVEL OF FUNCTION: Pt had three seated rest breaks between activities today. TREATMENT: Therapeutic Exercise: 1: side stepping in parallel bars 4 x 20 ft 2: Standing hip abductions 3 x 20 reps 3: Standing hip extensions 3 x 20reps 4: Weight bearing on R LE only with B UE assist on parallel bars up to 30 sec at a time 5: UBE seat 11, WL 1.0, x 6 min (Intermittently changed direction of pedaling) Skilled Intervention: Patient was educated in proper exercise technique and purpose for exercises. Reviewed and educated patient on additions/changes for home exercise program Skilled judgment was provided in selection of appropriate interventions. Correct performance of therapeutic exercises was facilitated with verbal and visual cuing. Patient education as noted. Gait Trainin: Step-ups- and- over blue and green (8) step in the parallel bars with B UE assist 2 x 8reps 2: L LE SLS in parallel bars to fatigue 3: L SLS to fatigue 4: Ambulation with walker and focus on gait pattern x 60ft with SBA. Skilled Intervention: Patient was provided contact guard assistance, stand by assist, supervision during pre-gait/gait training to prevent falls and insure safety. Facilitated proper gait cycle with the use of verbal and visual cues for correction of gait deviations identified in the objective section above. Billing: [facility]: Therapeutic Exercise ([id number]): 1:1 time: 25 minutes (2 units: 23-37 mins) Gait Training ([id number]): 1:1 time: 20 minutes (1 unit: 8-22 mins) Total time: 45 minutes Radha Yu PT [facility] PROGRESSon 07-22-2019 PROGRESS HNO ID: [id number] Author: Radha (Pt) Gigi Service: ? Author Type: Physical Therapist Type: Progress Notes Filed: 07/22/2019 2:36 PM Note Text: Episode Visit Count: 6 Therapist That Will Oversee The Plan Of Care: Radha Yu Start of Care Date: 07/06/19 Onset Date: 01/26/19 Plan of Care Certification Date: 07/06/19 Patient Identified by Name and Date of : Yes REHABILITATION AND SPORTS THERAPY PHYSICAL THERAPY TREATMENT NOTE ASSESSMENT: Albin Issa demonstrated improvements in progression of exercise, height of step. The patient will continue to benefit from ongoing skilled physical therapy for strength, balance and prosthetic gait. PLAN FOR NEXT VISIT: Continue UE and LE strengthening, balance and gait advancement. SUBJECTIVE: Patient Reason for Visit: Pt denies any muscle sorenss following last session. He has another f/u with the geospatial intelligence analyst tomorrow. Pain: Pain Pain Level: 0 Post Treatment Pain Post Treatment Pain Level: 0 OBJECTIVE MEASURES WITH LEVEL OF FUNCTION: Pt had three seated rest breaks between activities today. TREATMENT: Therapeutic Exercise: 1: side stepping in parallel bars 4 x 20 ft 2: Standing hip abductions 3 x 20 reps 3: Standing hip extensions 3 x 20reps 4: Weight bearing on R LE only with B UE assist on parallel bars up to 30 sec at a time 5: UBE seat 11, WL 1.0, x 6 min (Intermittently changed direction of pedaling) Skilled Intervention: Patient was educated in proper exercise technique and purpose for exercises. Reviewed and educated patient on additions/changes for home exercise program Skilled judgment was provided in selection of appropriate interventions. Correct performance of therapeutic exercises was facilitated with verbal and visual cuing. Patient education as noted. Gait Trainin: Step-ups- and- over blue and green (8) step in the parallel bars with B UE assist 2 x 8reps 2: L LE SLS in parallel bars to fatigue 3: L SLS to fatigue 4: Ambulation with walker and focus on gait pattern x 60ft with SBA. Skilled Intervention: Patient was provided contact guard assistance, stand by assist, supervision during pre-gait/gait training to prevent falls and insure safety. Facilitated proper gait cycle with the use of verbal and visual cues for correction of gait deviations identified in the objective section above. Billing: [facility]: Therapeutic Exercise ([id number]): 1:1 time: 25 minutes (2 units: 23-37 mins) Gait Training ([id number]): 1:1 time: 20 minutes (1 unit: 8-22 mins) Total time: 45 minutes Radha Yu PT [facility] CNTHERAPYon 07-20-2019 CNTHERAPY OT/PT/Speech Visit (PTWS) ALBIN ISSA ([id number]) 1955 M Date Time Provider Department 07/20/19 8:30 AM RADHA YU (PT) PTWS Date Time Provider Department Center 07/20/2019 8:30 AM [id number] YU (PT) PTWS REPLACED BY [facility] Reason for Visit: Physical Therapy [503] Primary Visit Diagnosis:S/P AKA (above knee amputation), right ([facility]) [Z89.611] Other Visit Diagnosis:Liposarcoma of thigh, 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 The patient will continue to benefit from ongoing skilled physical therapy for strengthening, balance and gait. PLAN FOR NEXT VISIT: UE and LE strengthening, balance and gait. SUBJECTIVE: Patient Reason for Visit: Pt notes a little soreness in his L leg muscles over the weekend. Describes as a muscle fatigue type of soreness. He also notes that he tried ambulating on his crutches at home one evening and did pretty well. Pain: Pain Pain Level: 0 Post Treatment Pain Post Treatment Pain Level: 0 OBJECTIVE MEASURES WITH LEVEL OF FUNCTION: Balance Single Leg Stance: L 10 sec Pt had 3 seated rest periods during treatment today. TREATMENT: Therapeutic Exercise: 1: UBE seat 11, WL 1.0, x 6 min (Intermittently changed direction of pedaling) 2: high knee marching in standing at parallel bars 2 x 20 reps 3: Standing hip abductions 3 x 20 reps 4: Standing hip extensions 2 x 20reps 5: hip hiking R LE 3 x 20 reps 6: side stepping in parallel bars 4 x 20 ft Skilled Intervention: Patient was educated in proper exercise technique and purpose for exercises. Reviewed and educated patient on additions/changes for home exercise program Skilled judgment was provided in selection of appropriate interventions. Correct performance of therapeutic exercises was facilitated with verbal and visual cuing. Patient education as noted. Gait Trainin: Amb in parallel bars with L hand only 6 x length of bars 2: Step-ups- and- over blue step in the parallel bars with B UE assist 2 x 8reps 3: L LE SLS in parallel bars to fatigue 4: B LE stance in parallel bars x 3 to fatigue Skilled Intervention: Patient was provided stand by assist, supervision, parallel bars during pre-gait/gait training to prevent falls and insure safety. Facilitated proper gait cycle with the use of verbal and visual cues for correction of gait deviations identified in the objective section above. Billing: [facility]: Therapeutic Exercise ([id number]): 1:1 time: 25 minutes (2 units: 23-37 mins) Gait Training ([id number]): 1:1 time: 20 minutes (1 unit: 8-22 mins) Total time: 45 minutes Radha Yu PT [facility] PROGRESSon 07-20-2019 PROGRESS HNO ID: [id number] Author: Radha (Pt) Gigi Service: ? Author Type: Physical Therapist Type: Progress Notes Filed: 07/20/2019 9:35 AM Note Text: Episode Visit Count: 4 Therapist That Will Oversee The Plan Of Care: Radha Yu Start of Care Date: 07/06/19 Onset Date: 01/26/19 Plan of Care Certification Date: 07/06/19 Patient Identified by Name and Date of : Yes REHABILITATION AND SPORTS THERAPY PHYSICAL THERAPY TREATMENT NOTE ASSESSMENT: Albin Issa demonstrated improvements in L LE stance time and progression of exercises. The patient will continue to benefit from ongoing skilled physical therapy for strengthening, balance and gait. PLAN FOR NEXT VISIT: UE and LE strengthening, balance and gait. SUBJECTIVE: Patient Reason for Visit: Pt notes a little soreness in his L leg muscles over the weekend. Describes as a muscle fatigue type of soreness. He also notes that he tried ambulating on his crutches at home one evening and did pretty well. Pain: Pain Pain Level: 0 Post Treatment Pain Post Treatment Pain Level: 0 OBJECTIVE MEASURES WITH LEVEL OF FUNCTION: Balance Single Leg Stance: L 10 sec Pt had 3 seated rest periods during treatment today. TREATMENT: Therapeutic Exercise: 1: UBE seat 11, WL 1.0, x 6 min (Intermittently changed direction of pedaling) 2: high knee marching in standing at parallel bars 2 x 20 reps 3: Standing hip abductions 3 x 20 reps 4: Standing hip extensions 2 x 20reps 5: hip hiking R LE 3 x 20 reps 6: side stepping in parallel bars 4 x 20 ft Skilled Intervention: Patient was educated in proper exercise technique and purpose for exercises. Reviewed and educated patient on additions/changes for home exercise program Skilled judgment was provided in selection of appropriate interventions. Correct performance of therapeutic exercises was facilitated with verbal and visual cuing. Patient education as noted. Gait Trainin: Amb in parallel bars with L hand only 6 x length of bars 2: Step-ups- and- over blue step in the parallel bars with B UE assist 2 x 8reps 3: L LE SLS in parallel bars to fatigue 4: B LE stance in parallel bars x 3 to fatigue Skilled Intervention: Patient was provided stand by assist, supervision, parallel bars during pre-gait/gait training to prevent falls and insure safety. Facilitated proper gait cycle with the use of verbal and visual cues for correction of gait deviations identified in the objective section above. Billing: [facility]: Therapeutic Exercise ([id number]): 1:1 time: 25 minutes (2 units: 23-37 mins) Gait Training ([id number]): 1:1 time: 20 minutes (1 unit: 8-22 mins) Total time: 45 minutes Radha Yu PT [facility] CNTHERAPYon 07-17-2019 CNTHERAPY OT/PT/Speech Visit (PTWS) ALBIN ISSA ([id number]) 1955 M Date Time Provider Department 07/17/19 3:15 PM RADHA YU (PT) PTWS Date Time Provider Department Center 07/17/2019 3:15 PM [id number] YU (PT) PTWS REPLACED BY [facility] Reason for Visit: Physical Therapy [503] Primary Visit Diagnosis:S/P AKA (above knee amputation), right ([facility]) [Z89.611] Other Visit Diagnosis:Liposarcoma of thigh, 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 Pt was advised to continue to use the walker for ambulation. The patient will continue to benefit from ongoing skilled physical therapy for progression of strength and gait. PLAN FOR NEXT VISIT: Continue to progress strength, gait and activity endurance. SUBJECTIVE: Patient Reason for Visit: Pt to dept ambulating with walker and states he brought his cane along for gait instruction. Pain: Pain Pain Level: 0 Post Treatment Pain Post Treatment Pain Level: 0 OBJECTIVE MEASURES WITH LEVEL OF FUNCTION: Balance Single Leg Stance: L 3 seconds Pt continues to require verbal cues to use arms of chair rather than his walker or parallel bars when sitting and standing. Pt required 2-3 seated rest breaks throughout treatment. TREATMENT: Therapeutic Exercise: 1: UBE seat 13, WL 1.0, x 7 min (Intermittently changed direction of pedaling) 2: Standing hip abductions 3 x 20 reps 3: Standing hip extensions 2 x 20reps 4: hip hiking R LE 3 x 10 reps 5: Side stepping in parallel bars 4 x 10 feet Skilled Intervention: Patient was educated in proper exercise technique and purpose for exercises. Reviewed and educated patient on additions/changes for home exercise program and pt to increase reps/sets. Skilled judgment was provided in selection of appropriate interventions. Correct performance of therapeutic exercises was facilitated with verbal and visual cuing. Patient education as noted. Gait Trainin: Amb in parallel bars with L hand only 6 x length of bars 2: Amb in parallel bars with instruction on use of straight cane L UE with R UE assist on bar x 4 lengths of the bars. Pt attempted a few steps with cane only. 3: Step-ups- and- over blue step in the parallel bars with B UE assist 2 x 8reps 4: L LE SLS in parallel bars to fatigue 5: B LE stance in parallel bars x 3 to fatigue Skilled Intervention: Patient was provided contact guard assistance, supervision during pre-gait/gait training to prevent falls and insure safety. Facilitated proper gait cycle with the use of verbal and visual cues for correction of gait deviations identified in the objective section above. Skilled judgment used to assess proper use of assistive device. Correct performance of home program was facilitated with verbal cueing. Billing: [facility]: Therapeutic Exercise ([id number]): 1:1 time: 20 minutes (1 unit: 8-22 mins) Gait Training ([id number]): 1:1 time: 25 minutes (2 units: 23-37 mins) Total time: 45 minutes Radha Yu PT [facility] PROGRESSon 07-17-2019 PROGRESS HNO ID: [id number] Author: Radha (Pt) Gigi Service: ? Author Type: Physical Therapist Type: Progress Notes Filed: 07/17/2019 5:16 PM Note Text: Episode Visit Count: 4 Therapist That Will Oversee The Plan Of Care: Radha Yu Start of Care Date: 07/06/19 Onset Date: 01/26/19 Plan of Care Certification Date: 07/06/19 Patient Identified by Name and Date of : Yes REHABILITATION AND SPORTS THERAPY PHYSICAL THERAPY TREATMENT NOTE ASSESSMENT: Albin Issa demonstrated improvements in activity tolerance/endurance and progression of gait instruction. Pt was advised to continue to use the walker for ambulation. The patient will continue to benefit from ongoing skilled physical therapy for progression of strength and gait. PLAN FOR NEXT VISIT: Continue to progress strength, gait and activity endurance. SUBJECTIVE: Patient Reason for Visit: Pt to dept ambulating with walker and states he brought his cane along for gait instruction. Pain: Pain Pain Level: 0 Post Treatment Pain Post Treatment Pain Level: 0 OBJECTIVE MEASURES WITH LEVEL OF FUNCTION: Balance Single Leg Stance: L 3 seconds Pt continues to require verbal cues to use arms of chair rather than his walker or parallel bars when sitting and standing. Pt required 2-3 seated rest breaks throughout treatment. TREATMENT: Therapeutic Exercise: 1: UBE seat 13, WL 1.0, x 7 min (Intermittently changed direction of pedaling) 2: Standing hip abductions 3 x 20 reps 3: Standing hip extensions 2 x 20reps 4: hip hiking R LE 3 x 10 reps 5: Side stepping in parallel bars 4 x 10 feet Skilled Intervention: Patient was educated in proper exercise technique and purpose for exercises. Reviewed and educated patient on additions/changes for home exercise program and pt to increase reps/sets. Skilled judgment was provided in selection of appropriate interventions. Correct performance of therapeutic exercises was facilitated with verbal and visual cuing. Patient education as noted. Gait Trainin: Amb in parallel bars with L hand only 6 x length of bars 2: Amb in parallel bars with instruction on use of straight cane L UE with R UE assist on bar x 4 lengths of the bars. Pt attempted a few steps with cane only. 3: Step-ups- and- over blue step in the parallel bars with B UE assist 2 x 8reps 4: L LE SLS in parallel bars to fatigue 5: B LE stance in parallel bars x 3 to fatigue Skilled Intervention: Patient was provided contact guard assistance, supervision during pre-gait/gait training to prevent falls and insure safety. Facilitated proper gait cycle with the use of verbal and visual cues for correction of gait deviations identified in the objective section above. Skilled judgment used to assess proper use of assistive device. Correct performance of home program was facilitated with verbal cueing. Billing: [facility]: Therapeutic Exercise ([id number]): 1:1 time: 20 minutes (1 unit: 8-22 mins) Gait Training ([id number]): 1:1 time: 25 minutes (2 units: 23-37 mins) Total time: 45 minutes Radha Yu PT [facility] CNTHERAPYon 07-13-2019 CNTHERAPY OT/PT/Speech Visit (PTWS) LUIS MANUELALBIN Zazueta ([id number]) 1955 M Date Time Provider Department 07/13/19 9:30 AM RADHA YU (PT) PTWS Date Time Provider Department Center 07/13/2019 9:30 AM [id number] YU (PT) PTWS REPLACED BY [facility] Reason for Visit: Physical Therapy [503] Primary Visit Diagnosis:S/P AKA (above knee amputation), right ([facility]) [Z89.611] Other Visit Diagnosis:Liposarcoma of thigh, 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 The patient will continue to benefit from ongoing skilled physical therapy for strengthening, ROM, balance and gait. PLAN FOR NEXT VISIT: Continue strengthening, gait and stairs. Pt to bring his cane from home next visit for gait instruction. SUBJECTIVE: Patient Reason for Visit: Pt states he saw the geospatial intelligence analyst and he adjusted his prosthesis and is now fitting very comfortably when weight bearing. He presents today ambulating with his wheeled walker to [facility] (no w/c). Pain: Pain Pain Level: 0 Post Treatment Pain Post Treatment Pain Level: 0 OBJECTIVE MEASURES WITH LEVEL OF FUNCTION: Functional Strength Functional Strength: Step up;Step down Step up: with supervision in parallel bars Step down: with supervision in parallel bars Gait Gait: Supervision Gait Device: Rollator Gait Deviations Right Lower Extremity: Other: See comment Gait Observation: Pt ambulates with much smoother gait pattern today. Demonstrates improved stance time and heel strike with more even step lengths and weight bearing. TREATMENT: Therapeutic Exercise: 1: UBE seat 11, WL 0, x 6 min (4 min fwd, 2 min bkwd) 2: Standing hip abductions 2 x 20 reps 3: Standing hip extensions 2 x 20reps 4: Side stepping in parallel bars 4 x 10 feet 5: Mini squats using UE assist in parallel bars 2 x 10 reps Skilled Intervention: Patient was educated in proper exercise technique and purpose for exercises. Reviewed and educated patient on additions/changes for home exercise program Skilled judgment was provided in selection of appropriate interventions. Correct performance of therapeutic exercises was facilitated with verbal and visual cuing. Patient education as noted. Gait Trainin: Ambulation with prosthesis in parallel bars 4 x length (20') with focus on form. 2: Side stepping in parallel bars 3 x each direction (x 20') 3: Instruction in steps with prosthesis in the parallel bars on blue step. 4: L LE SLS in parallel bars multiple attempts to fatigue (7 sec longest hold) 5: B LE stance in parallel bars x 3 to fatigue (20 sec longest hold) Skilled Intervention: Patient was provided contact guard assistance, supervision during pre-gait/gait training to prevent falls and insure safety. Gait belt utilized during session for safety. Skilled judgment used to assess proper use of assistive device. Education provided to patient regarding the proper sequence for stair negotiation. Billing: [facility]: Therapeutic Exercise ([id number]): 1:1 time: 20 minutes (1 unit: 8-22 mins) Gait Training ([id number]): 1:1 time: 25 minutes (2 units: 23-37 mins) Total time: 45 minutes Radha Lemon, PT [facility] PROGRESSon 07-13-2019 PROGRESS HNO ID: [id number] Author: Radha (Pt) Gigi Service: ? Author Type: Physical Therapist Type: Progress Notes Filed: 07/13/2019 8:15 PM Note Text: Episode Visit Count: 3 Therapist That Will Oversee The Plan Of Care: Radha Yu Start of Care Date: 07/06/19 Onset Date: 01/26/19 Plan of Care Certification Date: 07/06/19 Patient Identified by Name and Date of : Yes REHABILITATION AND SPORTS THERAPY PHYSICAL THERAPY TREATMENT NOTE ASSESSMENT: Albin Zazueta Luis Manuel demonstrated improvements in gait pattern with walker and prosthesis. The patient will continue to benefit from ongoing skilled physical therapy for strengthening, ROM, balance and gait. PLAN FOR NEXT VISIT: Continue strengthening, gait and stairs. Pt to bring his cane from home next visit for gait instruction. SUBJECTIVE: Patient Reason for Visit: Pt states he saw the geospatial intelligence analyst and he adjusted his prosthesis and is now fitting very comfortably when weight bearing. He presents today ambulating with his wheeled walker to [facility] (no w/c). Pain: Pain Pain Level: 0 Post Treatment Pain Post Treatment Pain Level: 0 OBJECTIVE MEASURES WITH LEVEL OF FUNCTION: Functional Strength Functional Strength: Step up;Step down Step up: with supervision in parallel bars Step down: with supervision in parallel bars Gait Gait: Supervision Gait Device: Rollator Gait Deviations Right Lower Extremity: Other: See comment Gait Observation: Pt ambulates with much smoother gait pattern today. Demonstrates improved stance time and heel strike with more even step lengths and weight bearing. TREATMENT: Therapeutic Exercise: 1: UBE seat 11, WL 0, x 6 min (4 min fwd, 2 min bkwd) 2: Standing hip abductions 2 x 20 reps 3: Standing hip extensions 2 x 20reps 4: Side stepping in parallel bars 4 x 10 feet 5: Mini squats using UE assist in parallel bars 2 x 10 reps Skilled Intervention: Patient was educated in proper exercise technique and purpose for exercises. Reviewed and educated patient on additions/changes for home exercise program Skilled judgment was provided in selection of appropriate interventions. Correct performance of therapeutic exercises was facilitated with verbal and visual cuing. Patient education as noted. Gait Trainin: Ambulation with prosthesis in parallel bars 4 x length (20') with focus on form. 2: Side stepping in parallel bars 3 x each direction (x 20') 3: Instruction in steps with prosthesis in the parallel bars on blue step. 4: L LE SLS in parallel bars multiple attempts to fatigue (7 sec longest hold) 5: B LE stance in parallel bars x 3 to fatigue (20 sec longest hold) Skilled Intervention: Patient was provided contact guard assistance, supervision during pre-gait/gait training to prevent falls and insure safety. Gait belt utilized during session for safety. Skilled judgment used to assess proper use of assistive device. Education provided to patient regarding the proper sequence for stair negotiation. Billing: [facility]: Therapeutic Exercise ([id number]): 1:1 time: 20 minutes (1 unit: 8-22 mins) Gait Training ([id number]): 1:1 time: 25 minutes (2 units: 23-37 mins) Total time: 45 minutes Radha Yu PT [facility] CNTHERAPYon 07-08-2019 CNTHERAPY OT/PT/Speech Visit (PTWS) ALBIN ISSA ([id number]) 1955 M Date Time Provider Department 07/08/19 3:15 PM RADHA YU (PT) PTWS Date Time Provider Department Center 07/08/2019 3:15 PM [id number] YU (PT) PTWS REPLACED BY [facility] Reason for Visit: Physical Therapy [503] Primary Visit Diagnosis:S/P AKA (above knee amputation), right ([facility]) [Z89.611] Other Visit Diagnosis:Liposarcoma of thigh, 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 The patient will continue to benefit from ongoing skilled physical therapy for strengthening, balance and gait instruction. PLAN FOR NEXT VISIT: Continue with LE strengthening ex, may add UBE next visit, chair push-ups and/or core strengthening. SUBJECTIVE: Patient Reason for Visit: Pt states it feels like prosthetic leg is longer than L leg. No issues after last visit. Yesterday was walking with prosthesis on about 3-4 hours, both in the house and in the community. Still has irritation at posteromedial aspect of edge of prosthetic on thigh. Pain: Pain Pain Level: 0 Post Treatment Pain Post Treatment Pain Level: 0 OBJECTIVE MEASURES WITH LEVEL OF FUNCTION: Posture / Alignment Lumbo - Pelvic Alignment: In standing at parallel bars with symmetrical weight bearing on LEs, pelvis/iliac crest appears level. LE AROM R Hip Extension: 10 Degrees L Hip Extension: 20 Degrees Balance Static Standing Balance: Static Standing Balance;Single Leg Stance Static Standing Balance: B 5 seconds Single Leg Stance: L 2 seconds TREATMENT: Therapeutic Exercise: 1: *R SLR with prosthesis on 2 x 10 reps 2: *L sidleying R hip abduction (stump only with 10# wts)2 x 10 reps 3: *prone hip ext (stump only with 5# wt.) 2 x 10 reps 4: *hip hiking R LE 3 x 10 reps Skilled Intervention: Patient was educated in proper exercise technique and purpose for exercises. Reviewed and educated patient on additions/changes for home exercise program as above (*) Skilled judgment was provided in selection of appropriate interventions. Provided written instruction for home exercise program to facilitate proper performance and compliance. Correct performance of therapeutic exercises was facilitated with verbal and visual cuing. Patient education as noted. Gait Trainin: Ambulation with prosthesis in parallel bars 4 x length (20') with focus on form. 2: Side stepping in parallel bars 3 x each direction (x 20') 3: High knee marching/exagerated stepping x 2 lengths (20') Skilled Intervention: Facilitated proper gait cycle with the use of verbal and visual cues for correction of gait deviations identified in the objective section above. Gait belt utilized during session for safety. Education provided to patient regarding the proper sequence for level negotiation with R LE prosthesis and walker. Skilled judgment used to assess proper use of orthotic device. Billing: [facility]: Therapeutic Exercise ([id number]): 1:1 time: 15 minutes (1 unit: 8-22 mins) Gait Training ([id number]): 1:1 time: 25 minutes (2 units: 23-37 mins) Total time: 40 minutes Radha Yu PT [facility] PROGRESSon 07-08-2019 PROGRESS HNO ID: [id number] Author: Radha (Pt) Gigi Service: ? Author Type: Physical Therapist Type: Progress Notes Filed: 07/08/2019 4:50 PM Note Text: Episode Visit Count: 2 Therapist That Will Oversee The Plan Of Care: Radha Yu Start of Care Date: 07/06/19 Onset Date: 01/26/19 Plan of Care Certification Date: 07/06/19 Patient Identified by Name and Date of : Yes REHABILITATION AND SPORTS THERAPY PHYSICAL THERAPY TREATMENT NOTE ASSESSMENT: Albin Issa demonstrated improvements in tolerated increased activity today. The patient will continue to benefit from ongoing skilled physical therapy for strengthening, balance and gait instruction. PLAN FOR NEXT VISIT: Continue with LE strengthening ex, may add UBE next visit, chair push-ups and/or core strengthening. SUBJECTIVE: Patient Reason for Visit: Pt states it feels like prosthetic leg is longer than L leg. No issues after last visit. Yesterday was walking with prosthesis on about 3-4 hours, both in the house and in the community. Still has irritation at posteromedial aspect of edge of prosthetic on thigh. Pain: Pain Pain Level: 0 Post Treatment Pain Post Treatment Pain Level: 0 OBJECTIVE MEASURES WITH LEVEL OF FUNCTION: Posture / Alignment Lumbo - Pelvic Alignment: In standing at parallel bars with symmetrical weight bearing on LEs, pelvis/iliac crest appears level. LE AROM R Hip Extension: 10 Degrees L Hip Extension: 20 Degrees Balance Static Standing Balance: Static Standing Balance;Single Leg Stance Static Standing Balance: B 5 seconds Single Leg Stance: L 2 seconds TREATMENT: Therapeutic Exercise: 1: *R SLR with prosthesis on 2 x 10 reps 2: *L sidleying R hip abduction (stump only with 10# wts)2 x 10 reps 3: *prone hip ext (stump only with 5# wt.) 2 x 10 reps 4: *hip hiking R LE 3 x 10 reps Skilled Intervention: Patient was educated in proper exercise technique and purpose for exercises. Reviewed and educated patient on additions/changes for home exercise program as above (*) Skilled judgment was provided in selection of appropriate interventions. Provided written instruction for home exercise program to facilitate proper performance and compliance. Correct performance of therapeutic exercises was facilitated with verbal and visual cuing. Patient education as noted. Gait Trainin: Ambulation with prosthesis in parallel bars 4 x length (20') with focus on form. 2: Side stepping in parallel bars 3 x each direction (x 20') 3: High knee marching/exagerated stepping x 2 lengths (20') Skilled Intervention: Facilitated proper gait cycle with the use of verbal and visual cues for correction of gait deviations identified in the objective section above. Gait belt utilized during session for safety. Education provided to patient regarding the proper sequence for level negotiation with R LE prosthesis and walker. Skilled judgment used to assess proper use of orthotic device. Billing: [facility]: Therapeutic Exercise ([id number]): 1:1 time: 15 minutes (1 unit: 8-22 mins) Gait Training ([id number]): 1:1 time: 25 minutes (2 units: 23-37 mins) Total time: 40 minutes Radha Yu PT [facility] CNTHERAPYon 07-06-2019 CNTHERAPY OT/PT/Speech Visit (PTWS) ALBIN ISSA ([id number]) 1955 M Date Time Provider Department 07/06/19 5:00 PM MARVINMIMI ADKINSISSA (PT) PTWS Date Time Provider Department Center 07/06/2019 5:00 PM [id number], RADHA (PT) PTWS REPLACED BY [facility] Reason for Visit: PT Eval [747] Primary Visit Diagnosis:S/P AKA (above knee amputation), right ([facility]) [Z89.611] Other Visit Diagnosis:Liposarcoma of thigh, 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 He presents with impairments of gait abnormality, LE weakness and balance deficits with newly aquired prosthetic limb. He may benefit from skilled therapy services to improve LE and core strength, static and dynamic balance and normalize prosthetic gait. Prognosis: Excellent Excellent due to: current objective clinical presentation;good support system/ coping skills Goals for Episode of Care: created on 07/06/19 through 09/05/19 [place] in home exercise program. Patient will increase strength of R LE and core musculature to 5/5 to allow for normalized gait mechanics and perform ADLs. Perform all daily activities, transfers and community ambulation with decreased report of symptoms/pain in 6-8 weeks. Improve postural awareness. Normal, independent gait with prosthesis and no assistive device. Planned Interventions, Frequency, and Duration: Current Frequency: 2x/week Duration: 8 weeks Total Number of Visits Planned: 16 Planned Treatment Interventions: Therapeutic exercise;Neuromuscula r re-education;Gait Training;Patient/Fami ly/Caregiver Education PLAN FOR NEXT VISIT: Initiate LE exercises (and HEP), assess SLS, standing balance and progress gait. Patient demonstrates good understanding of plan of care and treatment. The above goals and plan of care were discussed and agreed upon by patient/family. SUBJECTIVE: Albin Issa is a 64 year old male seen today for Pt underwent R AKA 01/26/19. He has been wearng the python consultant garment and ambulating independently with front wheeled walker after this time. He did have round of infection of incision site and continues to have a pinhole size opening with seeping of clear fluid on his residual stump. This is likely more related to the lymphedema. He was fit with and received his prosthetic limb 07/02/19. He states he was instructed not to use it until he was seen here intherapy, but he admits to using it on Saturday and yesterday when he was out of the house. He notes wearing it 2-3 hours on Saturday, from 3:30 -9 yesterady and today since 3:30 (currently 5:30) today. He denies any problems except notes uncomfortable feeling on inside of edge of prosthesis (posterior inner thigh) related to location of posterior curve of the cup when in weight bearing. He has f/u with [employer] 07/16/19. When not wearing his prosthetic, he is wearing the python consultant on his stump. He describes a ramp to the front door of his one level home. Patient Goals: To be able to walk independently with no assistive device. Functional Limitations: walking in the community;stair negotiation(Pt has a modified gas/brake pedal to drive his vehicle.) Prior Level of Function: Independent with restrictions Independent with the following restrictions: Limited amb distance d/t significant weight of R LE prior to amputation. Since AKA, limited ambulation with walker. Intake Information: Prescription present Previous Treatment: Physical Therapy?;Surgery? Pain: Pain Pain Level: 0 Pain Location: (Rubbing/discomfort posteromedial R thigh with weight bearing) Frequency: Intermittent;Walking Post Treatment Pain Post Treatment Pain Level: 0 OBJECTIVE MEASURES WITH LEVEL OF FUNCTION: LE Strength Trunk Strength: 4/5 R Hip Flexion (L2): 4+/5 R Hip ABduction: 4+/5 R Hip ADduction: 4+/5 L Hip Flexion (L2): 4+/5 L Hip ABduction: 4+/5 L Hip ADduction: 4+/5 L Knee Extension (L3): 4+/5 L Knee Flexion: 5/5 L Ankle Dorsiflexion (L4): 5/5 L Ankle Plantar Flexion: 5/5 Functional Strength Functional Strength: Sit<>stand Sit/Stand: Independent with walker Gait Gait: Supervision Gait Device: Front-wheeled Walker Gait Deviations: Right Lower Extremity Gait Deviations Right Lower Extremity: Stance time decreased;Push-off during terminal stance decreased;Step length decreased;Foot clearance decreased;Lacks hip extension beyond mid-stance;Trunk control decreased Education: Education Learning Preferences: Demonstration;Explana tion Barriers: None Learning/educational needs: Home exercise program;Plan of Care;Gait Training Education Provided: Yes, see treatment interventions for education provided Education Provided To: Patient Education Mode/Type: Demonstration;Explana tion/Discussion;Liter ature/Printed Materials;Performance Response to Education/Teach Back: States/Identifies;Ret urn Demonstration TREATMENT: Evaluation Gait Trainin: Educated pt in sit<>stand transfers with walker and prosthesis. Pt with mild difficulty adjusting foot placement for R prosthetic knee to bend. Verbal cueing for close to seat and reaching back with hands to sit. 2: Instructed in 3 point gait using front wheeled walker and R LE prosthesis. Pt amb x70ft with CGA from therapist. Verbal cues for step sequence and foot placement. Pt had several episodes of catching front of shoe on prosthesis. step lengths and weight bearing asymmetrical- decreased on R. 3: *Pt was advised to continue to wear python consultant when not using prosthesis. He is to wear the prosthesis no more than 4 hours a day and less than that if wearing consecutive days. he is to discontinue use of prosthesis if develops any pressure points, skin redness or painful irritation on R LE. Pt was also enocuraged to keep his geospatial intelligence analyst notified of any skin irritations, rubbing or soreness when wearing the prosthesis. Skilled Intervention: Patient was provided contact guard assistance, stand by assist during pre-gait/gait training to prevent falls and insure safety. Facilitated proper gait cycle with the use of verbal and visual cues for correction of gait deviations identified in the objective section above. Gait belt utilized during session for safety. Skilled judgment used to assess proper sizing and proper use of assistive device. Education provided to patient regarding the proper sequence for ambulation on level surfaces. Education provided to patient regarding the proper technique for sit<>stand transfers at mat table (no UE support) and w/c (arm rests). Skilled judgment used to assess proper use of orthotic device; R LE AKA prosthesis. Billing: [facility]: Evaluation - Low Complexity (76802) Gait Training (69705): 1:1 time: 20 minutes (1 unit: 8-22 mins) Total time: 45 minutes Radha Yu PT Previous Version Radha Yu PT 07/06/2019 7:12 PM Signed Addended by: RADHA YU PT on: 07/06/2019 07:12 PM Modules accepted: Orders Letter Text Normal [facility] PROGRESSon 07-06-2019 PROGRESS HNO ID: [id number] Author: Radha (Pt) Gigi Service: ? Author Type: Physical Therapist Type: Progress Notes Filed: 07/06/2019 7:11 PM Note Text: Episode Visit Count: 1 Therapist That Will Oversee The Plan Of Care: Radha Yu Start of Care Date: 07/06/19 Onset Date: 01/26/19 Plan of Care Certification Date: 07/06/19 Patient Identified by Name and Date of : Yes REHABILITATION AND SPORTS THERAPY PHYSICAL THERAPY EVALUATION PLAN OF CARE: Assessment: Albin Issa presents with the diagnosis of s/p AKA R LE. He presents with impairments of gait abnormality, LE weakness and balance deficits with newly aquired prosthetic limb. He may benefit from skilled therapy services to improve LE and core strength, static and dynamic balance and normalize prosthetic gait. Prognosis: Excellent Excellent due to: current objective clinical presentation;good support system/ coping skills Goals for Episode of Care: created on 07/06/19 through 09/05/19 [place] in home exercise program. Patient will increase strength of R LE and core musculature to 5/5 to allow for normalized gait mechanics and perform ADLs. Perform all daily activities, transfers and community ambulation with decreased report of symptoms/pain in 6-8 weeks. Improve postural awareness. Normal, independent gait with prosthesis and no assistive device. Planned Interventions, Frequency, and Duration: Current Frequency: 2x/week Duration: 8 weeks Total Number of Visits Planned: 16 Planned Treatment Interventions: Therapeutic exercise;Neuromuscula r re-education;Gait Training;Patient/Fami ly/Caregiver Education PLAN FOR NEXT VISIT: Initiate LE exercises (and HEP), assess SLS, standing balance and progress gait. Patient demonstrates good understanding of plan of care and treatment. The above goals and plan of care were discussed and agreed upon by patient/family. SUBJECTIVE: Albin Issa is a 64 year old male seen today for Pt underwent R AKA 01/26/19. He has been wearng the python consultant garment and ambulating independently with front wheeled walker after this time. He did have round of infection of incision site and continues to have a pinhole size opening with seeping of clear fluid on his residual stump. This is likely more related to the lymphedema. He was fit with and received his prosthetic limb 07/02/19. He states he was instructed not to use it until he was seen here intherapy, but he admits to using it on Saturday and yesterday when he was out of the house. He notes wearing it 2-3 hours on Saturday, from 3:30 -9 yesterady and today since 3:30 (currently 5:30) today. He denies any problems except notes uncomfortable feeling on inside of edge of prosthesis (posterior inner thigh) related to location of posterior curve of the cup when in weight bearing. He has f/u with [facility] 07/16/19. When not wearing his prosthetic, he is wearing the python consultant on his stump. He describes a ramp to the front door of his one level home. Patient Goals: To be able to walk independently with no assistive device. Functional Limitations: walking in the community;stair negotiation(Pt has a modified gas/brake pedal to drive his vehicle.) Prior Level of Function: Independent with restrictions Independent with the following restrictions: Limited amb distance d/t significant weight of R LE prior to amputation. Since AKA, limited ambulation with walker. Intake Information: Prescription present Previous Treatment: Physical Therapy?;Surgery? Pain: Pain Pain Level: 0 Pain Location: (Rubbing/discomfort posteromedial R thigh with weight bearing) Frequency: Intermittent;Walking Post Treatment Pain Post Treatment Pain Level: 0 OBJECTIVE MEASURES WITH LEVEL OF FUNCTION: LE Strength Trunk Strength: 4/5 R Hip Flexion (L2): 4+/5 R Hip ABduction: 4+/5 R Hip ADduction: 4+/5 L Hip Flexion (L2): 4+/5 L Hip ABduction: 4+/5 L Hip ADduction: 4+/5 L Knee Extension (L3): 4+/5 L Knee Flexion: 5/5 L Ankle Dorsiflexion (L4): 5/5 L Ankle Plantar Flexion: 5/5 Functional Strength Functional Strength: Sit<>stand Sit/Stand: Independent with walker Gait Gait: Supervision Gait Device: Front-wheeled Walker Gait Deviations: Right Lower Extremity Gait Deviations Right Lower Extremity: Stance time decreased;Push-off during terminal stance decreased;Step length decreased;Foot clearance decreased;Lacks hip extension beyond mid-stance;Trunk control decreased Education: Education Learning Preferences: Demonstration;Explana tion Barriers: None Learning/educational needs: Home exercise program;Plan of Care;Gait Training Education Provided: Yes, see treatment interventions for education provided Education Provided To: Patient Education Mode/Type: Demonstration;Explana tion/Discussion;Liter ature/Printed Materials;Performance Response to Education/Teach Back: States/Identifies;Ret urn Demonstration TREATMENT: Evaluation Gait Trainin: Educated pt in sit<>stand transfers with walker and prosthesis. Pt with mild difficulty adjusting foot placement for R prosthetic knee to bend. Verbal cueing for close to seat and reaching back with hands to sit. 2: Instructed in 3 point gait using front wheeled walker and R LE prosthesis. Pt amb x70ft with CGA from therapist. Verbal cues for step sequence and foot placement. Pt had several episodes of catching front of shoe on prosthesis. step lengths and weight bearing asymmetrical- decreased on R. 3: *Pt was advised to continue to wear python consultant when not using prosthesis. He is to wear the prosthesis no more than 4 hours a day and less than that if wearing consecutive days. he is to discontinue use of prosthesis if develops any pressure points, skin redness or painful irritation on R LE. Pt was also enocuraged to keep his geospatial intelligence analyst notified of any skin irritations, rubbing or soreness when wearing the prosthesis. Skilled Intervention: Patient was provided contact guard assistance, stand by assist during pre-gait/gait training to prevent falls and insure safety. Facilitated proper gait cycle with the use of verbal and visual cues for correction of gait deviations identified in the objective section above. Gait belt utilized during session for safety. Skilled judgment used to assess proper sizing and proper use of assistive device. Education provided to patient regarding the proper sequence for ambulation on level surfaces. Education provided to patient regarding the proper technique for sit<>stand transfers at mat table (no UE support) and w/c (arm rests). Skilled judgment used to assess proper use of orthotic device; R LE AKA prosthesis. Billing: [facility]: Evaluation - Low Complexity (86477) Gait Training (64087): 1:1 time: 20 minutes (1 unit: 8-22 mins) Total time: 45 minutes Radha Yu PT Normal [facility] Office Visit: evaluation les ions right leg - surgery 05/28/17on 07-03-2017 Alcoholism counseling (procedure) no Invalid Interpretation Code [facility] Work Phone: Dietary management education, guidance, and counseling (procedure) yes Invalid Interpretation Code [facility] Work Phone: Documentation of current medications (procedure) Done Invalid Interpretation Code [facility] Work Phone: Fall risk assessment No Invalid Interpretation Code [facility] Work Phone: Tobacco smoking status Current Invalid Interpretation Code [facility] Work Phone: Tobacco use status [facility] Former smoker Invalid Interpretation Code [facility] Work Phone: Office Visit: gallstones and abdominal painon 06-19-2017 Tobacco smoking status Current Invalid Interpretation Code [facility] Work Phone: Tobacco use status [facility] Former smoker Invalid Interpretation Code [facility] Work Phone: Office Visit: evaluation les ions right legon 05-15-2017 Tobacco smoking status Current Invalid Interpretation Code [facility] Work Phone: Tobacco use status [facility] Former smoker Invalid Interpretation Code [facility] Work Phone: Office Visiton 12-14-2016 Tobacco smoking status Current Invalid Interpretation Code [facility] Work Phone: Tobacco use status [facility] Former smoker Invalid Interpretation Code [facility] Work Phone: Clinical 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 Cholesterol [Mass/Vol] 123 mg/dL Invalid Interpretation Code [facility] Work Phone: Cholesterol in HDL [Mass/Vol] 40 mg/dL Invalid Interpretation Code [facility] Work Phone: Cholesterol in LDL [Mass/Vol] 57 mg/dL Invalid Interpretation Code [facility] Work Phone: Triglyceride [Mass/Vol] 132 mg/dL Invalid Interpretation Code [facility] Work Phone: Clinical Lists Update: 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-2016 Left ventricular Ejection fraction 35 % Invalid Interpretation Code [facility] Work Phone: Lab Report: CBC W/Diff, Auto matedon 01-17-2016 Absolute Neut 3.0 X10 3/UL Invalid Interpretation Code 2.0-7.7 [facility] Work Phone: [phone] Basophils/100 WBC (Bld) 0.6 % Invalid Interpretation Code 0-1 [facility] Work Phone: Basophils/100 WBC Auto (Bld) 0.6 % Invalid Interpretation Code 0-1 [facility] Work Phone: [phone] Eosinophils/100 leukocytes 0.8 % Invalid Interpretation Code 0-5 [facility] Work Phone: [phone] Eosinophils/100 WBC (Bld) 0.8 % Invalid Interpretation Code 0-5 [facility] Work Phone: Erythrocyte distribution width (RBC) [Ratio] 13.4 % Invalid Interpretation Code 11.6-14.6 [facility] Work Phone: Erythrocyte distribution width Auto Ratio (RBC) 13.4 % Invalid Interpretation Code 11.6-14.6 [facility] Work Phone: [phone] Erythrocytes (RBC) 4.01 10*6/uL Low 4.6-6.[address] [facility] Work Phone: [phone] Hematocrit (Bld) [Volume fraction] 37.0 % Low 40-54 [facility] Work Phone: Hematocrit (HCT) 37.0 % Low 40-54 [facility] Work Phone: [phone] Hemoglobin (Bld) [Mass/Vol] 12.3 g/dL Low 13.0-16.5 [facility] Work Phone: Immature granulocytes/100 WBC (Bld) 0.800 % Invalid Interpretation Code 0.0-0.9 [facility] Work Phone: Lymphocytes 2.57 X10 3/UL Invalid Interpretation Code 0.83-4.51 [facility] Work Phone: [phone] Lymphocytes (Bld) [#/Vol] 2.57 X10 3/UL Invalid Interpretation Code 0.83-4.51 [facility] Work Phone: Lymphocytes/100 leukocytes 41.1 % High 19-41 [facility] Work Phone: [phone] Lymphocytes/100 WBC (Bld) 41.1 % High 19-41 [facility] Work Phone: MCH 30.7 pg Invalid Interpretation Code 27.0-32.0 [facility] Work Phone: [phone] MCH (RBC) [Entitic mass] 30.7 pg Invalid Interpretation Code 27.0-32.0 [facility] Work Phone: MCHC mass conc (RBC) 33.2 G/GL Invalid Interpretation Code 32-36 [facility] Work Phone: [phone] MCV 92.3 fL Invalid Interpretation Code 80-94 [facility] Work Phone: [phone] MCV (RBC) [Entitic vol] 92.3 fL Invalid Interpretation Code 80-94 [facility] Work Phone: mean corpuscular hemoglobin concentration, RBC 33.2 G/GL Invalid Interpretation Code 32-36 [facility] Work Phone: Monocytes/100 leukocytes 9.0 % Invalid Interpretation Code 0-10 [facility] Work Phone: [phone] Monocytes/100 WBC (Bld) 9.0 % Invalid Interpretation Code 0-10 [facility] Work Phone: [phone] neutrophil count, blood 3.0 X10 3/UL Invalid Interpretation Code 2.0-7.7 [facility] Work Phone: Neutrophils/100 WBC (Bld) 47.7 % Invalid Interpretation Code 47-70 [facility] Work Phone: Neutrophils/100 WBC Auto (Bld) 47.7 % Invalid Interpretation Code 47-70 [facility] Work Phone: Platelet mean volume (Bld) [Entitic vol] 9.1 fL Invalid Interpretation Code 6.2-12.0 [facility] Work Phone: Platelets 358 10*3/mm3 Invalid Interpretation Code 150-450 [facility] Work Phone: [phone] Platelets (Bld) [#/Vol] 358 10*3/uL Invalid Interpretation Code 150-450 [facility] Work Phone: PMV by Veronica 9.1 fL Invalid Interpretation Code 6.2-12.0 [facility] Work Phone: [phone] RBC (Bld) [#/Vol] 4.01 10*6/uL Low 4.6-6.2 [facility] Work Phone: RDW SD 43.9 fL Invalid Interpretation Code 35.1-43.9 [facility] Work Phone: [phone] red blood cell distribution width, size density 43.9 fL Invalid Interpretation Code 35.1-43.9 [facility] Work Phone: WBC (Bld) [#/Vol] 6.3 10*3/uL Invalid Interpretation Code 4.4-11.0 [facility] Work Phone: WBC (Leukocytes) 6.3 10*3/uL Invalid Interpretation Code 4.4-11.0 [facility] Work Phone: [phone] Office Visit: s/p severe R l eg streptoccal cellulitis, sepsis and ALICJA; get CBCon 01-11-2016 Smoking cessation education (procedure) yes Invalid Interpretation Code [facility] Work Phone: [phone] Lab Report: Myoglobin, Urine on 01-09-2016 Myoglobin (U) [Mass/Vol] < 2 ng/mL Invalid Interpretation Code 0-13 [facility] Work Phone: Lab Report: Basic Metabolic Profile (BMP)on 01-07-2016 Anion gap 8 mmol/L Invalid Interpretation Code 5-15 [facility] Work Phone: [phone] Anion gap [Moles/Vol] 8 mmol/L Invalid Interpretation Code 5-15 [facility] Work Phone: BUN/Creatinine Ratio 13.7 RATIO Invalid Interpretation Code 10-20 [facility] Work Phone: [phone] Calcium [Mass/Vol] 8.3 mg/dL Low 8.5-10.1 [facility] Work Phone: calculated corrected value of creatinine clearance with body surface area 71.51 mL/min Invalid Interpretation Code [facility] Work Phone: Chloride [Moles/Vol] 110 mmol/L High 98-[address] [facility] Work Phone: CO2 25.0 mmol/L Invalid Interpretation Code 21.0-32.0 [facility] Work Phone: [phone] CO2 (BldV) [Partial pressure] 25.0 mmol/L Invalid Interpretation Code 21.0-32.0 [facility] Work Phone: Creatinine 71.51 mL/min Invalid Interpretation Code [facility] Work Phone: [phone] Creatinine [Mass/Vol] 1.17 mg/dL Invalid Interpretation Code 0.70-1.30 [facility] Work Phone: eGFR (non-black) 82 mL/min/{1.73_m2} Invalid Interpretation Code >60 [facility] Work Phone: [phone] GFR/1.73 sq M.predicted among non-blacks MDRD (S/P/Bld) [Vol rate/Area] 67 mL/min/{1.73_m2} Invalid Interpretation Code >60 [facility] Work Phone: Glomerular Filtration rate 82 mL/min Invalid Interpretation Code >60 [facility] Work Phone: Glucose [Mass/Vol] 98 mg/dL Invalid Interpretation Code 70-110 [facility] Work Phone: Potassium [Moles/Vol] 4.1 mmol/L Invalid Interpretation Code 3.5-5.1 [facility] Work Phone: Sodium [Moles/Vol] 143 mmol/L Invalid Interpretation Code 136-145 [facility] Work Phone: Urea nitrogen [Mass/Vol] 16 mg/dL Invalid Interpretation Code 7-18 [facility] Work Phone: Urea nitrogen/Creatinine [Mass ratio] 13.5584187 mg/mg Invalid Interpretation Code 10-20 [facility] Work Phone: Lab Report: CBC W/Diff, Auto matedon 01-07-2016 Pathologist Cyto stain Nom (Cvx/Vag) [ID] May foll Invalid Interpretation Code [facility] Work Phone: Microbiology: Culture, Blood (WB)on 01-07-2016 Bacteria identified Cx Nom (Bld) BC No growth in 5 days. Invalid Interpretation Code [facility] Work Phone: Replaced Document: (P) CBC W /Diff, Automatedon 01-07-2016 CELLS COUNTED 100 Invalid Interpretation Code MANUAL DIFF [facility] Work Phone: [phone] Metamyelocytes/100 leukocytes 4 % High 0-1 [facility] Work Phone: [phone] Metamyelocytes/100 WBC (Bld) 4 % High 0-1 [facility] Work Phone: Myelocytes (Bld) [#/Vol] 1 (?) High 0-0 [facility] Work Phone: Segmented Neutrophils/100 leukocytes 85 % High 47-70 [facility] Work Phone: [phone] Segmented neutrophils/100 WBC (Bld) 85 % High 47-70 [facility] Work Phone: total cells counted, blood 100 Invalid Interpretation Code MANUAL DIFF [facility] Work Phone: TOXIC GRAN 1+ Invalid Interpretation Code [facility] Work Phone: toxic granulation, blood 1+ Invalid Interpretation Code [facility] Work Phone: Lab Report: CBC W/Diff, Auto matedon 01-06-2016 Band form neutrophils (Bld) [#/Vol] 4 % Invalid Interpretation Code 0-5 [facility] Work Phone: Blasts/100 WBC (Bld) 1 % Critically high 0-0 [facility] Work Phone: Eosinophils/100 leukocytes 2 % Invalid Interpretation Code 0-5 [facility] Work Phone: Eosinophils/100 WBC (Bld) 2 % Invalid Interpretation Code 0-5 [facility] Work Phone: Hypochromia presence 1+ Invalid Interpretation Code [facility] Work Phone: [phone] Hypochromia Ql (Bld) 1+ Invalid Interpretation Code [facility] Work Phone: Platelets LM Ql (Bld) ADEQUATE Invalid Interpretation Code A[facility]Q [facility] Work Phone: Promyelocytes (Bld) [#/Vol] 1 (?) High 0-0 [facility] Work Phone: Replaced Document: CBC W/Dif f, Automatedon 01-05-2016 GE use only - for [employer] import when terms are not otherwise specified 5 % Invalid Interpretation Code [facility] Work Phone: PLASMA CELL 5 % Invalid Interpretation Code [facility] Work Phone: RBC morphology finding Nom (Bld) NORM C+C Invalid Interpretation Code NORM C AND C [facility] Work Phone: Lab Report: CPK Total, Creat ine Kinaseon 01-04-2016 CK [Catalytic activity/Vol] 61 U/L Invalid Interpretation Code 39-308 [facility] Work Phone: Lab Report: Prealbuminon Prealbumin 4.8 mg/dL Low 20.0-40.0 [facility] Work Phone: Prealbumin Elph [Mass/Vol] 4.8 mg/dL Low 20.0-40.0 [facility] Work Phone: Lab Report: (P) Urinalysis, Completeon 01-03-2016 Albumin Ql (U) 30 High Negative [facility] Work Phone: Bilirubin Ql (U) 1 High Negative [facility] Work Phone: Clarity (U) Clear Invalid Interpretation Code Clear [facility] Work Phone: Color (U) Yellow Invalid Interpretation Code Yellow [facility] Work Phone: Glucose Ql (U) Normal mg/dl Invalid Interpretation Code Normal [facility] Work Phone: Ketones (U) [Mass/Vol] Negative Invalid Interpretation Code Negative [facility] Work Phone: Leukocyte esterase Test strip Ql (U) 25 High Negative [facility] Work Phone: NITRITE UR Negative Invalid Interpretation Code Negative [facility] Work Phone: Occult Blood, urine 10 High Negative [facility] Work Phone: OCCULT BLOOD-UR 10 High Negative [facility] Work Phone: [phone] pH (U) 5.0 [pH] Invalid Interpretation Code 5.0 - 8.0 [facility] Work Phone: Specific gravity Refractometry (U) [Rel density] 1.015 Invalid Interpretation Code 1.002-1.030 [facility] Work Phone: Urine, ketones presence Negative Invalid Interpretation Code Negative [facility] Work Phone: [phone] Urine, pH 5.0 [pH] Invalid Interpretation Code 5.0 - 8.0 [facility] Work Phone: [phone] Urine, protein 30 mg/dL High Negative [facility] Work Phone: UROBILI 8 mg/dL High Normal [facility] Work Phone: [phone] Lab Report: Creatinine, Urin e (random)on 01-03-2016 Creatinine (U) [Mass/Vol] 164.00 mg/dL Invalid Interpretation Code NO RANGE EST. [facility] Work Phone: Lab Report: Urinalysis, Comp leteon 01-03-2016 AMORPHOUS 2+ Invalid Interpretation Code [facility] Work Phone: Bacteria LM.HPF (Urine sed) [#/Area] 0 /[HPF] Invalid Interpretation Code None Seen [facility] Work Phone: Epithelial cells LM.HPF (Urine sed) [#/Area] 0-5 SEEN Invalid Interpretation Code 0-5 [facility] Work Phone: Mucus Ql (Urine sed) 0 SEEN Invalid Interpretation Code [facility] Work Phone: RBC LM.HPF (Urine sed) [#/Vol] 0 SEEN Invalid Interpretation Code 0-5 [facility] Work Phone: Urinalysis, white blood cells, culture and sensitivity 5-10 SEEN Invalid Interpretation Code 0-5 [facility] Work Phone: Urine, mucus presence in sediment 0 SEEN Invalid Interpretation Code [facility] Work Phone: WBC (Leukocytes) 5-10 SEEN Invalid Interpretation Code 0-5 [facility] Work Phone: Lab Report: Urine Sodiumon 0 01-03-2016 Sodium (U) [Moles/Vol] mmol/L Invalid Interpretation Code Not Establ. [facility] Work Phone: Urine, sodium mmol/L Invalid Interpretation Code Not Establ. [facility] Work Phone: Lab Report: CBC W/Diff, Auto matedon 08-17-2015 Absolute Lymphocytes 1.42 X10 3/UL Invalid Interpretation Code 0.83-4.51 [facility] Work Phone: Absolute Neut 3.4 X10 3/UL Invalid Interpretation Code 2.0-7.7 [facility] Work Phone: Absolute Neutrophil count 3.4 X10 3/UL Invalid Interpretation Code 2.0-7.7 [facility] Work Phone: Lymphocytes 1.42 X10 3/UL Invalid Interpretation Code 0.83-4.51 [facility] Work Phone: Lab Report: BNP,B-Type NATRI URETIC PEPTIDEon 03-25-2015 Natriuretic peptide B (Bld) [Mass/Vol] 28.1 pg/mL Invalid Interpretation Code 0-100 [facility] Work Phone: Lab Report: Magnesiumon Magnesium [Mass/Vol] 2.1 mg/dL Invalid Interpretation Code 1.8-2.4 [facility] Work Phone: Lab Report: Thyroid Stim Hor froy (TSH)on 01-10-2015 Thyroid stimulating hormone (TSH) 1.49 u[iU]/mL Invalid Interpretation Code 0.358-3.74 [facility] Work Phone: TSH Qn 1.49 m[IU]/L Invalid Interpretation Code 0.358-3.74 [facility] Work Phone: Office Visit: [facility] 01-10-20 15 cardiac risk group C Invalid Interpretation Code [facility] Work Phone: General cardiovascular disease 10Y risk [#] [place] N/A Invalid Interpretation Code [facility] Work Phone: Replaced Document: Margy E CG Observationson 07-16-2014 EKG QRS axis -39 deg Invalid Interpretation Code [facility] Work Phone: electrocardiogram interpretation Sinus Rhythm -Left axis -anterior fascicular block. -Anteroseptal infarct -age undetermined. ABNORMAL Invalid Interpretation Code [facility] Work Phone: Heart rate 63 /min Invalid Interpretation Code [facility] Work Phone: Interpretation Sinus Rhythm -Left axis -anterior fascicular block. -Anteroseptal infarct -age undetermined. ABNORMAL Invalid Interpretation Code [facility] Work Phone: [phone] P [place] 59 deg Invalid Interpretation Code [facility] Work Phone: [phone] P wave axis, electrocardiogram 59 deg Invalid Interpretation Code [facility] Work Phone: GA Interval 146 ms Invalid Interpretation Code [facility] Work Phone: [phone] GA interval, electrocardiogram 146 ms Invalid Interpretation Code [facility] Work Phone: QRS axis, electrocardiogram -39 deg Invalid Interpretation Code [facility] Work Phone: QRS Duration 96 ms Invalid Interpretation Code [facility] Work Phone: [phone] QRS duration, electrocardiogram 96 ms Invalid Interpretation Code [facility] Work Phone: QT Interval new path ms Invalid Interpretation Code [facility] Work Phone: [phone] QT interval, electrocardiogram new path ms Invalid Interpretation Code [facility] Work Phone: [place] 42 deg Invalid Interpretation Code [facility] Work Phone: [phone] T wave axis, electrocardiogram 42 deg Invalid Interpretation Code [facility] Work Phone: Lab Report: TROP - copyon Troponin I.cardiac [Mass/Vol] 0.02 ng/mL Normal <0.06 [facility] Work Phone: Lab Report: LIPIDon 05-08-20 13 Lipoprotein.pre-beta [Mass/Vol] 18 mg/dL Normal 5-40 [facility] Work Phone: Lab Report: LIVERon 05-08-20 13 Albumin [Mass/Vol] 3.7 g/dL Normal [facility] Work Phone: Alkaline phosphatase (ALP) 97 U/L Normal 50-136 [facility] Work Phone: [phone] ALP (Bld) [Catalytic activity/Vol] 97 U/L Normal 50-136 [facility] Work Phone: ALT [Catalytic activity/Vol] 26 U/L Normal 12-78 [facility] Work Phone: AST [Catalytic activity/Vol] 17 U/L Normal 15-37 [facility] Work Phone: Bilirubin [Mass/Vol] 0.60 mg/dL Normal 0.00-1.[address] [facility] Work Phone: Bilirubin.direct [Mass/Vol] 0.12 mg/dL Normal 0.00-0.30 [facility] Work Phone: Replaced Document: Margy OLIVEIRA Observationson 04-20-2013 Pulse (Heart Rate) 380 ms Invalid Interpretation Code [facility] Work Phone: QT interval/QT interval (corrected for heart rate), electrocardiogram 380 ms Invalid Interpretation Code [facility] Work Phone: Lab Report: PTon 08-11-2010 INR Coag (PPP) [Relative time] 1.0 {INR} Normal [facility] Work Phone: prothrombin time, actual/normal, ratio 10.8 SECONDS Normal 9.1-11.7 [facility] Work Phone: Vital Signs Date Time Vital Sign Value Performing Clinician Facility 05-03-2025 11:28-0400 Body height 170.[address] Speedy Boswell MD Work Phone: [facility] 05-03-2025 11:28-0400 Body mass index (BMI) [Ratio] 46 kg/m2 Dr. Speedy Boswell MD Work Phone: [facility] 05-03-2025 11:28-0400 Body weight 133.[address] Speedy Boswell MD Work Phone: [facility] 05-03-2025 11:28-0400 Diastolic blood pressure 57 mm[Hg] Dr. Speedy Boswell MD Work Phone: [facility] 05-03-2025 11:28-0400 Heart rate 57 /min Dr. Speedy Boswell MD Work Phone: [facility] 05-03-2025 11:28-0400 Respiratory rate 18 /min Dr. Speedy Boswell MD Work Phone: [facility] 05-03-2025 11:28-0400 Systolic blood pressure 101 mm[Hg] Dr. Speedy Boswell MD Work Phone: [facility] 03-30-2024 14:12-0400 Body height 180.3 cm Kel Nielsen MD Work Phone: [facility] 03-30-2024 14:12-0400 Body mass index (BMI) [Ratio] 38.77 kg/m2 Kel Nielsen MD Work Phone: [facility] 03-30-2024 14:12-0400 Body weight 126.1 kg Kel Nielsen MD Work Phone: [facility] 01-07-2024 06:15-0500 Body temperature 97.11 [degF] David Ramirez MD Work Phone: [facility] 01-07-2024 06:15-0500 Diastolic blood pressure 63 mm[Hg] David Ramirez MD Work Phone: [facility] 01-07-2024 06:15-0500 Heart rate 70 /min David Ramirez MD Work Phone: [facility] 01-07-2024 06:15-0500 Respiratory rate 18 /min David Ramirez MD Work Phone: [facility] 01-07-2024 06:15-0500 SaO2% (BldA) [Mass fraction] 93 % David Ramirez MD Work Phone: [facility] 01-07-2024 06:15-0500 Systolic blood pressure 109 mm[Hg] David Ramirez MD Work Phone: [facility] 01-06-2024 07:48-0500 Body height 170.2 cm David Ramirez MD Work Phone: [facility] 01-06-2024 07:48-0500 Body mass index (BMI) [Ratio] 46.05 kg/m2 David Ramirez MD Work Phone: [facility] 01-06-2024 07:48-0500 Body weight 133.36 kg David Ramirez MD Work Phone: [facility] 10-30-2023 15:12-0500 Body height 172.[address] Speedy Boswell Work Phone: [facility] 10-30-2023 15:12-0500 Body mass index (BMI) [Ratio] 44.6 kg/m2 Dr. Speedy Boswell Work Phone: [facility] 10-30-2023 15:12-0500 Body weight 133.[address] Speedy Boswell Work Phone: [facility] 10-30-2023 15:12-0500 Diastolic blood pressure 70 mm[Hg] Dr. Speedy Boswell Work Phone: [facility] 10-30-2023 15:12-0500 Heart rate 60 /min Dr. Speedy Boswell Work Phone: [facility] 10-30-2023 15:12-0500 Respiratory rate 18 /min Dr. Speedy Boswell Work Phone: [facility] 10-30-2023 15:12-0500 Systolic blood pressure 111 mm[Hg] Dr. Speedy Boswell Work Phone: [facility] 09-10-2023 14:36-0400 Body height 172.[address] Speedy Boswell Work Phone: [facility] 09-10-2023 14:36-0400 Diastolic blood pressure 75 mm[Hg] Dr. Speedy Boswell Work Phone: [facility] 09-10-2023 14:36-0400 Heart rate 60 /min Dr. Speedy Boswell Work Phone: [facility] 09-10-2023 14:36-0400 Respiratory rate 20 /min Dr. Speedy Boswell Work Phone: [facility] 09-10-2023 14:36-0400 Systolic blood pressure 116 mm[Hg] Dr. Speedy Boswell Work Phone: [facility] 08-26-2023 15:31-0400 Body height 180.3 cm Kel Nielsen MD Work Phone: [facility] 08-26-2023 15:31-0400 Body mass index (BMI) [Ratio] 38.77 kg/m2 Kel Nielsen MD Work Phone: [facility] 08-26-2023 15:31-0400 Body weight 126.1 kg Kel Nielsen MD Work Phone: [facility] 02-11-2023 15:35-0400 Body height 180.3 cm Kel Nielsen MD Work Phone: [facility] 02-11-2023 15:35-0400 Body mass index (BMI) [Ratio] 38.77 kg/m2 Kel Nielsen MD Work Phone: [facility] 02-11-2023 15:35-0400 Body weight 126.1 kg Kel Nielsen MD Work Phone: [facility] 02-11-2023 15:35-0400 Diastolic blood pressure 73 mm[Hg] Kel Nielsen MD Work Phone: [facility] 02-11-2023 15:35-0400 Systolic blood pressure 116 mm[Hg] Kel Nielsen MD Work Phone: [facility] 10-27-2022 20:07-0500 Diastolic blood pressure 74 mm[Hg] Dr. Speedy Boswell Work Phone: [facility] 10-27-2022 20:07-0500 Heart rate 76 /min Dr. Speedy Boswell Work Phone: [facility] 10-27-2022 20:07-0500 Respiratory rate 19 /min Dr. Speedy Boswell Work Phone: [facility] 10-27-2022 20:07-0500 SaO2% (BldA) [Mass fraction] 95 % Dr. Speedy Boswell Work Phone: [facility] 10-27-2022 20:07-0500 Systolic blood pressure 110 mm[Hg] Dr. Speedy Boswell Work Phone: [facility] 10-27-2022 16:09-0500 Body height 172.[address] Speedy Boswell Work Phone: [facility] 10-27-2022 16:09-0500 Body mass index (BMI) [Ratio] 43.2 kg/m2 Dr. Speedy Boswell Work Phone: [facility] 10-27-2022 16:09-0500 Body temperature 98.1 [degF] Dr. Speedy Boswell Work Phone: [facility] 10-27-2022 16:09-0500 Body weight 128.[address] Speedy Boswell Work Phone: [facility] 08-20-2022 13:26-0400 Body height 180.[address] Speedy Boswell Work Phone: [facility] Work Phone: 08-20-2022 13:26-0400 Body mass index (BMI) [Ratio] 39.6 kg/m2 Dr. Speedy Boswell Work Phone: [facility] Work Phone: 08-20-2022 13:26-0400 Body weight 128.[address] Speedy Boswell Work Phone: [facility] Work Phone: 08-20-2022 13:26-0400 Diastolic blood pressure 55 mm[Hg] Dr. Speedy Boswell Work Phone: [facility] Work Phone: 08-20-2022 13:26-0400 Heart rate 60 /min Dr. Sepedy Boswell Work Phone: [facility] Work Phone: 08-20-2022 13:26-0400 Respiratory rate 18 /min Dr. Speedy Boswell Work Phone: [facility] Work Phone: 08-20-2022 13:26-0400 Systolic blood pressure 111 mm[Hg] Dr. Speedy Boswell Work Phone: [facility] Work Phone: 08-09-2022 14:24-0400 Body mass index (BMI) [Ratio] 39.6 kg/m2 Dr. Speedy Boswell Work Phone: [facility] Work Phone: 08-09-2022 14:24-0400 Body weight 128.[address] Speedy Boswell Work Phone: [facility] Work Phone: 02-05-2022 11:38-0500 Body height 180.[address] Speedy Boswell Work Phone: [facility] Work Phone: 02-05-2022 11:38-0500 Body weight 135.[address] Speedy Boswell Work Phone: [facility] Work Phone: 02-05-2022 11:38-0500 Diastolic blood pressure 73 mm[Hg] Dr. Speedy Boswell Work Phone: [facility] Work Phone: 02-05-2022 11:38-0500 Heart rate 66 /min Dr. Speedy Boswell Work Phone: [facility] Work Phone: 02-05-2022 11:38-0500 Respiratory rate 18 /min Dr. Speedy Boswell Work Phone: [facility] Work Phone: 02-05-2022 11:38-0500 SaO2% (BldA) [Mass fraction] 97 % Dr. Speedy Boswell Work Phone: [facility] Work Phone: 02-05-2022 11:38-0500 Systolic blood pressure 125 mm[Hg] Dr. Speedy Boswell Work Phone: [facility] Work Phone: 02-05-2022 10:38-0500 Body height 180.[address] Speedy Boswell Work Phone: [facility] Work Phone: 02-05-2022 10:38-0500 Body weight 135.[address] Speedy Boswell Work Phone: [facility] Work Phone: 02-05-2022 10:38-0500 Diastolic blood pressure 73 mm[Hg] Dr. Speedy Boswell Work Phone: [facility] Work Phone: 02-05-2022 10:38-0500 Heart rate 66 /min Dr. Speedy Boswell Work Phone: [facility] Work Phone: 02-05-2022 10:38-0500 Respiratory rate 18 /min Dr. Speedy Boswell Work Phone: [facility] Work Phone: 02-05-2022 10:38-0500 SaO2% (BldA) [Mass fraction] 97 % Dr. Speedy Boswell Work Phone: [facility] Work Phone: 02-05-2022 10:38-0500 Systolic blood pressure 125 mm[Hg] Dr. Speedy Boswell Work Phone: [facility] Work Phone: 01-15-2022 23:03-0500 Diastolic blood pressure 62 mm[Hg] Dr. Speedy Boswell Work Phone: [facility] Work Phone: 01-15-2022 23:03-0500 Systolic blood pressure 118 mm[Hg] Dr. Speedy Boswell Work Phone: [facility] Work Phone: 01-15-2022 19:47-0500 Body mass index (BMI) [Ratio] 41 kg/m2 Dr. Speedy Boswell Work Phone: [facility] Work Phone: 01-15-2022 19:47-0500 Body temperature 98 [degF] Dr. Speedy Boswell Work Phone: [facility] Work Phone: 01-15-2022 19:47-0500 Body weight 133.[address] Speedy Boswell Work Phone: [facility] Work Phone: 01-15-2022 19:47-0500 Heart rate 71 /min Dr. Speedy Boswell Work Phone: [facility] Work Phone: 01-15-2022 19:47-0500 Respiratory rate 15 /min Dr. Speedy Boswell Work Phone: [facility] Work Phone: 01-15-2022 19:47-0500 SaO2% (BldA) [Mass fraction] 99 % Dr. Speedy Boswell Work Phone: [facility] Work Phone: 06-01-2021 00:25-0400 Body temperature 97.81 [degF] Roni Figueroa MD Work Phone: [facility] Work Phone: 06-01-2021 00:25-0400 Diastolic blood pressure 93 mm[Hg] Roni Figueroa MD Work Phone: [facility] Work Phone: 06-01-2021 00:25-0400 Heart rate 82 /min Roni Figueroa MD Work Phone: [facility] Work Phone: 06-01-2021 00:25-0400 Respiratory rate 17 /min Roni Figueroa MD Work Phone: [facility] Work Phone: 06-01-2021 00:25-0400 SaO2% (BldA) [Mass fraction] 98 % Roni Figueroa MD Work Phone: [facility] Work Phone: 06-01-2021 00:25-0400 Systolic blood pressure 155 mm[Hg] Roni Figueroa MD [facility] Work Phone: 05-24-2021 00:05-0400 Body height 180.3 cm Roni Figueroa MD [facility] Work Phone: 05-24-2021 00:05-0400 Body mass index (BMI) [Ratio] 38.77 kg/m2 Roni Figueroa MD Work Phone: [facility] Work Phone: 05-24-2021 00:05-0400 Body weight 126.1 kg Roni Figueroa MD Work Phone: [facility] Work Phone: 03-22-2021 14:14-0400 Body mass index (BMI) [Ratio] 41 kg/m2 Dr. Speedy Boswell Work Phone: [facility] Work Phone: 03-22-2021 14:14-0400 Body mass index (BMI) [Ratio] 41 kg/m2 Dr. Speedy Boswell Work Phone: [facility] Work Phone: 07-03-2017 08:47-0400 Body height 181.61 cm Lowell Otero MD [facility] Work Phone: 07-03-2017 08:47-0400 Body mass index (BMI) [Ratio] 44.75 kg/m2 Lowell Otero MD [facility] Work Phone: 07-03-2017 08:47-0400 Body surface area Derived from formula 2.61 m2 Lowell Otero MD [facility] Work Phone: 07-03-2017 08:47-0400 Body temperature 96.9 [degF] Lowell Otero MD [facility] Work Phone: 07-03-2017 08:47-0400 Body weight 147.6 kg Lowell Otero MD [facility] Work Phone: 07-03-2017 08:47-0400 Diastolic blood pressure 81 mm[Hg] Lowell Otero MD [facility] Work Phone: 07-03-2017 08:47-0400 Heart rate 64 /min Lowell Otero MD [facility] Work Phone: 07-03-2017 08:47-0400 Respiratory rate 18 /min Lowell Otero MD [facility] Work Phone: 07-03-2017 08:47-0400 Systolic blood pressure 129 mm[Hg] Lowell Otero MD [facility] Work Phone: 07-03-2017 08:47-0400 Weight 147.6 kg Peg Deng RN [facility] Work Phone: 06-19-2017 10:56-0400 Body height 181.61 cm Cary George MD Work Phone: [facility] Work Phone: 06-19-2017 10:56-0400 Body mass index (BMI) [Ratio] 44 kg/m2 Cary George MD Work Phone: [facility] Work Phone: 06-19-2017 10:56-0400 Body temperature 97.2 [degF] Cary George MD Work Phone: [facility] Work Phone: 06-19-2017 10:56-0400 Body weight 145.15 kg Cary George MD Work Phone: [facility] Work Phone: 06-19-2017 10:56-0400 Diastolic blood pressure 76 mm[Hg] Cary George MD Work Phone: [facility] Work Phone: 06-19-2017 10:56-0400 Heart rate 75 /min Cary George MD Work Phone: [facility] Work Phone: 06-19-2017 10:56-0400 Respiratory rate 18 /min Cary George MD Work Phone: [facility] Work Phone: 06-19-2017 10:56-0400 Systolic blood pressure 106 mm[Hg] Cary George MD Work Phone: [facility] Work Phone: 06-14-2017 13:20-0400 Body [...] 13:20-0400 Systolic blood pressure 100 mm[Hg] JUANCHO [facility] Work Phone: 05-23-2017 12:15-0400 Body height 181.61 cm Rizwana Johnson LPN [facility] Work Phone: 05-23-2017 12:15-0400 Body mass index (BMI) [Ratio] 43.98 kg/m2 Rizwana Johnson LPN [facility] Work Phone: 05-23-2017 12:15-0400 Body temperature 97.8 [degF] Rizwana Johnson LPN [facility] Work Phone: 05-23-2017 12:15-0400 Body weight 145.06 kg Rizwana Johnson LPN [facility] Work Phone: 05-23-2017 12:15-0400 Diastolic blood pressure 56 mm[Hg] Rizwana Johnson LPN [facility] Work Phone: 05-23-2017 12:15-0400 Heart rate 69 /min Rizwana Johnson LPN [facility] Work Phone: 05-23-2017 12:15-0400 Respiratory rate 20 /min Rizwana Johnson LPN [facility] Work Phone: 05-23-2017 12:15-0400 SaO2% (BldA) [Mass fraction] 98 % Rizwana Johnson LPN [facility] Work Phone: 05-23-2017 12:15-0400 Systolic blood pressure 113 mm[Hg] Rizwana Johnson LPN [facility] Work Phone: 05-15-2017 10:40-0400 Body surface area Derived from formula 2.61 m2 Rizwana Johnson LPN [facility] Work Phone: 05-01-2017 09:51-0400 Body mass index (BMI) [Ratio] 44.86 kg/m2 Arlene Signs MD [facility] Work Phone: 05-01-2017 09:51-0400 Body temperature 96.7 [degF] Arlene Signs [facility] Work Phone: 05-01-2017 09:51-0400 Body weight 147.96 kg Arlene Signs [facility] Work Phone: 05-01-2017 09:51-0400 Diastolic blood pressure 66 mm[Hg] Arlene Signs [facility] Work Phone: 05-01-2017 09:51-0400 Heart rate 61 /min Arlene Signs [facility] Work Phone: 05-01-2017 09:51-0400 SaO2% (BldA) [Mass fraction] 100 % Arlene Signs [facility] Work Phone: 05-01-2017 09:51-0400 Systolic blood pressure 110 mm[Hg] Arlene Signs [facility] Work Phone: 04-03-2017 10:29-0400 Body height 181.61 cm Arlene Signs [facility] Work Phone: 04-03-2017 10:29-0400 Body mass index (BMI) [Ratio] 44.39 kg/m2 Arlene Signs [facility] Work Phone: 04-03-2017 10:29-0400 Body temperature 97.2 [degF] Arlene Signs [facility] Work Phone: 04-03-2017 10:29-0400 Body weight 146.42 kg Arlene Signs [facility] Work Phone: 04-03-2017 10:29-0400 Diastolic blood pressure 61 mm[Hg] Arlene Signs [facility] Work Phone: 04-03-2017 10:29-0400 Heart rate 64 /min Arleneronn Tavarez MD [facility] Work Phone: 04-03-2017 10:29-0400 Respiratory rate 22 /min Arleneronn Tavarez MD [facility] Work Phone: 04-03-2017 10:29-0400 SaO2% (BldA) [Mass fraction] 97 % Arlene Signs [facility] Work Phone: 04-03-2017 10:29-0400 Systolic blood pressure 96 mm[Hg] Arleneronn Tavarez MD [facility] Work Phone: 12-14-2016 13:36-0500 Body surface area Derived from formula 2.61 m2 Arleneronn Tavarez MD [facility] Work Phone: Encounters Encounter Date Encounter Type Care Provider Facility Start: 06-10-2025 ambulatory Speedy Boswell Facility:[facility] Start: 05-03-2025 End: 05-03-[address] Delilah Villagomez MD -[facility] Work Phone: Start: 05-03-2025 End: 05-03-[address] Speedy Boswell MD Work Phone: [facility] Work Phone: Start: 02-18-2025 End: 02-18-2025 ambulatory Ge Tomlinson Facility:[facility] Start: 02-18-2025 End: 02-18-[address] Ge Tomlinson MD -[facility] Work Phone: Start: 02-04-2025 End: 02-04-2025 ambulatory Ge Tomlinson Facility:[facility] Start: 02-04-2025 End: 02-04-[address] Ge Tomlinson MD -[facility] Work Phone: Start: 01-25-2025 End: 01-25-2025 ambulatory Ge Tomlinson Facility:[facility] Start: 01-25-2025 End: 01-25-[address] Ge Tomlinson MD -[facility] Work Phone: Start: 12-11-2024 End: 12-11-2024 ambulatory Speedy Boswell Facility:[facility] Start: 11-19-2024 End: 11-19-2024 ambulatory Speedy Boswell Facility:[facility] Start: 11-18-2024 End: 11-18-2024 ambulatory Ravi Holder Facility:[facility] Start: 11-04-2024 End: 11-04-2024 ambulatory Delilah Cristian Facility:[facility] Start: 10-26-2024 End: 10-26-2024 Emergency department patient visit Speedy Boswell Facility:[facility] Start: 10-20-2024 End: 10-21-2024 Emergency department patient visit Speedy oBswell Facility:[facility] Start: 09-10-2024 End: 09-10-2024 ambulatory Speedy Boswell Facility:[facility] Start: 08-01-2024 End: 08-01-2024 ambulatory Speedy Boswell Facility:[facility] Start: 06-29-2024 End: 06-29-2024 Emergency department patient visit Speedy Boswell Facility:[facility] Start: 06-11-2024 End: 06-12-2024 ambulatory Speedy Boswell Facility:[facility] Start: 05-29-2024 End: 05-29-2024 ambulatory Delilah Cristian Facility:[facility] Start: 05-21-2024 End: 05-21-2024 ambulatory Delilah Cristian Facility:[facility] Start: 05-16-2024 Encounter for other preprocedural examination Speedy Boswell [facility] Start: 05-08-2024 End: 05-08-2024 ambulatory Speedy Boswell Facility:[facility] Start: 03-30-2024 End: 03-30-20[facility] Start: 03-30-2024 End: 03-30-2024 Patient encounter procedure Kel Nielsen MD Work Phone: [facility] Comment on above: Arthritis of left rivera btalar joint Start: 03-05-2024 End: 03-05-[address] Speedy Boswell Work Phone: [facility] Work Phone: Start: 03-05-2024 End: 03-05-[address] Speedy Boswell Work Phone: [facility]-Radiology, [facility] Work Phone: Start: 01-20-2024 End: 01-20-[address] Speedy Boswell Work Phone: [facility] Work Phone: Start: 01-16-2024 End: 01-16-[address] Speedy Boswell Work Phone: [facility] Work Phone: Start: 01-16-2024 End: 01-16-[address] Speedy Boswell Work Phone: [facility]Labor[facility] Work Phone: Start: 01-06-2024 End: 01-07-2024 ambulatory SPEEDY BOSWELL Facility:[facility] Start: 01-06-2024 End: 01-07-2024 Subsequent hospital visit by physician David Ramirez MD Work Phone: [facility] Comment on above: Pacemaker lead malfu nction Start: 11-28-2023 End: 11-28-[address] Speedy Boswell Work Phone: [facility], [place] Work Phone: Start: 11-21-2023 End: 11-21-2023 ambulatory DAVID RAMIREZ Facility:[facility] Start: 11-21-2023 ambulatory [facility] y:[facility] Start: 11-21-2023 End: 11-21-2023 Subsequent hospital visit by physician Carmen Chavez MD Work Phone: [facility] Start: 11-01-2023 End: 11-01-[address] Speedy Boswell Work Phone: [facility] Work Phone: Start: 10-30-2023 End: 10-30-[address] Speedy Boswell Work Phone: [facility] Work Phone: Start: 09-24-2023 Non-patient / Non-visit Dr. Mika Boswell Work Phone: [facility] Work Phone: Start: 09-24-2023 Non-patient / Non-visit Dr. Mika Boswell Work Phone: [facility] Start: 09-24-2023 End: 09-24-[address] Speedy Boswell Work Phone: [facility] Work Phone: Start: 09-24-2023 End: 09-24-[address] Speedy Boswell Work Phone: [facility]-Cardiovascul ar Services Work Phone: Start: 09-11-2023 ambulatory [facility] Start: 09-10-2023 End: 09-10-[address] Speedy Boswell Work Phone: [facility] Work Phone: Start: 08-26-2023 End: 08-26-2023 ambulatory KEL NIELSEN [facility] Start: 08-26-2023 End: 08-26-2023 Patient encounter procedure Kel Nielsen MD Work Phone: [facility] Comment on above: Arthritis of left rivera btalar joint Start: 02-11-2023 End: 02-11-2023 Patient encounter procedure Kel Nielsen MD Work Phone: [facility] Comment on above: Arthritis of left rivera btalar joint Start: 01-17-2023 End: 01-17-[address] Speedy Boswell Work Phone: [facility] Work Phone: Start: 01-17-2023 End: 01-17-[address] Speedy Boswell Work Phone: [facility]-Laboratory Start: 11-20-2022 End: 11-20-[address] Speedy Boswell Work Phone: [facility] Start: 10-27-2022 End: 10-27-2022 Emergency department patient visit Dr. Speedy Boswell Work Phone: [facility]-Emergency Department Start: 08-29-2022 End: 08-29-[address] Speedy Boswell Work Phone: [facility] Work Phone: Start: 08-29-2022 End: 08-29-[address] Speedy Boswell Work Phone: [facility]-Occupational Therapy Start: 08-20-2022 End: 08-20-[address] Speedy Boswell Work Phone: [facility] Start: 08-09-2022 End: 08-09-[address] Speedy Boswell Work Phone: [facility] Start: 06-22-2022 End: 06-22-[address] Speedy Boswell Work Phone: [facility]-Laboratory, Specimen Start: 06-20-2022 End: 06-20-[address] Speedy Boswell Work Phone: [facility] Start: 05-24-2022 End: 05-24-[address] [facility] Start: 05-22-2022 End: 05-22-[address] Speedy Boswell Work Phone: [facility] Start: 05-10-2022 End: 05-10-[address] Speedy Boswell Work Phone: [facility] Start: 02-15-2022 End: 02-15-[address] Speedy Boswell Work Phone: [facility] Start: 02-07-2022 End: 02-07-[address] Speedy Boswell Work Phone: [facility] Start: 02-05-2022 End: 02-05-[address] Speedy Boswell Work Phone: [facility] Start: 01-24-2022 End: 01-24-[address] Speedy Boswell Work Phone: [facility] Start: 01-15-2022 End: 01-16-2022 Emergency department patient visit Dr. Speedy [facility]well [facility] Start: 05-23-2021 End: 06-01-2021 Evaluation and management of inpatient Roni Figueroa MD Work Phone: [facility] Comment on above: Acute traumatic pain (Primary Dx) Start: 02-16-2011 End: 06-01-2016 Preoperative cardiovascular examination Arlene Signs [facility] Work Phone: Procedures Date Procedure Procedure Detail Performing Clinician Start: 03-05-2024 CT of lower limb wit h contrast Dr. Speedy Boswell Work Phone: Start: 03-05-[address] Veronica Boswell Work Phone: Start: 01-07-2024 DEVICE EVALUATION Other Other Start: 01-07-2024 EXTRA LAVENDER TOP David Ramirez MD Work Phone: Start: 01-07-2024 EXTRA TUBES David le MD Work Phone: Start: 01-07-2024 Assay of magnesium Kace y Lizandro Douglass MEDICAL OFFICE ASSISTANT INSTRUCTOR-PANEL COVERER Work Phone: Start: 01-06-2024 Radiologic exam ches t 2 views Manuel Redd MD Work Phone: Start: 01-06-2024 Insj 1 transvns eltr d perm pacemaker/impltbl dfb David Ramirez MD Work Phone: Start: 01-06-2024 CBC AND ELECTRONIC DIFF Wilda A Ashish MEDICAL OFFICE ASSISTANT INSTRUCTOR-PANEL COVERER Work Phone: Start: 01-06-2024 Complete blood count with white cell differential, automated Wilda A Ashish MEDICAL OFFICE ASSISTANT INSTRUCTOR-PANEL COVERER Work Phone: Start: 01-06-2024 Creatinine blood Jessic a A Ashish MEDICAL OFFICE ASSISTANT INSTRUCTOR-PANEL COVERER Work Phone: Start: 01-06-2024 Ecg routine ecg w/le ast 12 lds w/i&r Wilda A Ashish MEDICAL OFFICE ASSISTANT INSTRUCTOR-PANEL COVERER Work Phone: Start: 11-21-2023 DEVICE EVALUATION Other Other Start: 09-24-2023 Cardiovascular stres s test using pharmacologic stress agent Dr. Speedy Boswell Work Phone: Start: 10-27-2022 Plain chest X-ray Dr. Meaghan Boswell Work Phone: Start: 08-09-2022 Plain x-ray of elbow Dr Puneet Boswell Work Phone: Start: 05-24-2022 MRI of lower extremity Dr. Speedy Boswell Work Phone: Start: 02-15-[address] Puneet Boswell Work Phone: Start: 01-15-2022 CT of abdomen and pe lvis without contrast Dr. Speedy Boswell Work Phone: Start: 05-31-2021 COVID-19 Hamilton meredith MEDICAL OFFICE ASSISTANT INSTRUCTOR - SALES INCENTIVE ANALYST Work Phone: Start: 05-29-2021 Dup-scan xtr veins complete bilateral study Hamilton Mckinnon MEDICAL OFFICE ASSISTANT INSTRUCTOR - SALES INCENTIVE ANALYST Work Phone: Start: 05-25-2021 Basic metabolic pane l calcium total Sd Moreno PA-C Work Phone: Start: 05-24-2021 OPERATIVE REPORT 3m Sca nning Start: 05-24-2021 Radex humerus minimu m 2 views Sd Moreno PA-C Work Phone: Start: 05-24-2021 Radex elbow complete minimum 3 views Juan Alberto Fontana MD Work Phone: Start: 05-24-2021 Chest x-ray 1 view frontal Juan Alberto Fontana MD Work Phone: Start: 05-24-2021 Antibody screen Sulma Figueroa MD Work Phone: Start: 05-24-2021 Ecg routine ecg w/le ast 12 lds w/i&r Juan Alberto Fontana MD Work Phone: Start: 05-24-2021 Basic metabolic pane l calcium total Linda Mcknight MD Work Phone: Start: 05-24-2021 Blood typing serologic abo Juan Alberto Fontana MD Work Phone: Start: 09-13-2017 End: 09-13-2017 [...] 06-14-2017 Follow Up Appt 6 months Divina Giles PA-C Work Phone: Start: 06-14-2017 End: 06-14-2017 PFNilam Giles PA-C Work Phone: Start: 06-14-2017 End: 06-14-2017 Prgrmg eval implantable in prsn dual lead dfb Speedy Mtz MD Start: 06-14-2017 End: 06-14-2017 Dietary management education, guidance, and counseling Peg Deng RN Start: 06-14-2017 End: 06-14-2017 Documentation of current medications Peg Deng RN Start: 06-14-2017 End: 06-14-2017 Follow Up Appt 6 months Divina Giles PA-C Work Phone: Start: 06-14-2017 End: 06-14-2017 PFNilam Giles PA-C Work Phone: Start: 06-14-2017 End: 06-14-2017 Prgrmg eval implantable in prsn dual lead dfb Speedy Mtz MD Start: 06-05-2017 Aftercare Aftercare plas tic surgery Lowell Otero MD Start: 05-15-2017 End: 05-28-2017 Follow Up Appt Other Lowell Otero MD Start: 05-15-2017 End: 05-15-2017 Alcoholism counseling Rizwana Johnson LPN Start: 05-15-2017 End: 05-15-2017 Dietary management education, guidance, and counseling Rizwana Johnson LPN Start: 05-15-2017 End: 05-15-2017 Documentation of current medications Rizwana Johnson LPN Start: 05-15-2017 End: 05-28-2017 Follow Up Appt Lois Otero MD Start: 05-01-2017 End: 05-01-2017 Documentation [...] Speedy Mtz MD Start: 12-14-2016 End: 12-14-2016 MM Speedy Mtz MD Start: 12-14-2016 End: 06-06-2017 Pacer Clinic Speedy Mtz MD Start: 12-14-2016 End: 12-14-2016 Prgrmg eval implantable in prsn dual lead dfb Speedy Mtz MD Start: 09-05-2016 End: 12-14-2016 Follow Up Appt 3 months Speedy Mtz MD Start: 09-05-2016 End: 09-05-2016 Follow Up Appt Other Divina Giles, PAFedeC Work Phone: Start: 09-05-2016 End: 12-14-2016 Pacer Clinic Speedy Mtz MD Start: 09-05-2016 End: 09-10-2016 Prgrmg eval implantable in prsn dual lead dfb Speedy Mtz MD Start: 09-05-2016 End: 12-14-2016 Follow Up Appt 3 months Speedy Mtz MD Start: 09-05-2016 End: 09-05-2016 Follow Up Appt Other Divina Giles PA-C Work Phone: Start: 09-05-2016 End: 12-14-2016 Pacer Clinic Speedy Mtz MD Start: 09-05-2016 End: 09-10-2016 Prgrmg eval implantable in prsn dual lead dfb Speedy Mtz MD Start: 06-01-2016 End: 08-22-2016 Follow Up Appt 3 months Divina Giles PA-C Work Phone: Start: 06-01-2016 End: 06-01-2016 Follow Up Appt 6 months Divina Giles PA-C Work Phone: Start: 06-01-2016 End: 06-01-2016 [facility] Divina Giles PA-C Work Phone: Start: 06-01-2016 End: 06-22-2016 Nuclear stress test -[facility] Divina Giles PA-C Work Phone: Start: 06-01-2016 End: 08-22-2016 [facility] Clinic Divina Giles PA-C Work Phone: Start: 06-01-2016 End: 06-01-2016 [facility] Divina Giles PA-C Work Phone: Start: 06-01-2016 End: 06-01-2016 Prgrmg eval implantable in prsn dual lead dfb Divina Giles PA-C Work Phone: Start: 06-01-2016 End: 08-22-2016 Follow Up Appt 3 months Divina Giles PA-C Work Phone: Start: 06-01-2016 End: 06-01-2016 Follow Up Appt 6 months Divina Giles PA-C Work Phone: Start: 06-01-2016 End: 06-01-2016 [facility] Divina Giles PA-C Work Phone: Start: 06-01-2016 [...] 05-18-2016 Follow Up Appt 3 months Divina Giles PA-C Work Phone: Start: 02-28-2016 End: 05-18-2016 [facility] Divina Giles PA-C Work Phone: Start: 02-28-2016 End: 02-29-2016 Prgrmg eval implantable in prsn dual lead dfb Divina Giles PA-C Work Phone: Start: 02-28-2016 End: 05-18-2016 Follow Up Appt 3 months Divina Giles PA-C Work Phone: Start: 02-28-2016 End: 05-18-2016 [facility] Divina Giles PA-C Work Phone: Start: 02-28-2016 End: 02-29-2016 Prgrmg eval implantable in prsn dual lead dfb Divina Giles PA-C Work Phone: Start: 01-11-2016 End: 01-11-2016 Alcoholism counseling Arlene Signs Start: 01-11-2016 End: 01-11-2016 Smoking cessation education Arlene Signs Start: 01-03-2016 End: 02-02-2016 Urinalysis Arlene Signs Start: 11-30-2015 End: 11-30-2015 Device Interrogation Speedy Mtz MD Start: 11-30-2015 End: 05-18-2016 Echocardiography Speedy Mtz MD Start: 11-30-2015 End: 05-18-2016 Follow Up Appt 3 months Speedy Mtz MD Start: 11-30-2015 End: 11-30-2015 Follow Up Appt 6 months Speedy Mtz MD Start: 11-30-2015 End: 11-30-2015 MMM Sepedy Mtz MD Start: 11-30-2015 End: 05-18-2016 Pacer [...] 08-17-2015 End: 08-17-2015 *CBC with Differential Divina Giles PA-C Work Phone: Start: 08-17-2015 End: 05-18-2016 Follow Up Appt 3 months Divina Giles PA-C Work Phone: Start: 08-17-2015 End: 05-18-2016 Pac[facility] Clinic Divina Giles PA-C Work Phone: Start: 08-17-2015 End: 08-17-2015 Prgrmg eval implantable in prsn dual lead dfb Divina Giles PA-C Work Phone: Start: 08-17-2015 End: 08-17-2015 CBC W Auto Differential panel - Blood Divina Giles PA-C Work Phone: Start: 08-17-2015 End: 05-18-2016 Follow Up Appt 3 months Divina Giles PA-C Work Phone: Start: 08-17-2015 End: 05-18-2016 Pacer Clinic Divina Giles PA-C Work Phone: Start: 08-17-2015 End: 08-17-2015 Prgrmg eval implantable in prsn dual lead dfb Divina Giles PA-C Work Phone: Start: 08-03-2015 End: 08-04-2015 Documentation of current medications Divina Giles PA-C Work Phone: Start: 08-03-2015 End: 08-03-2015 Follow Up Appt 3 months Divina Giles PA-C Work Phone: Start: 08-03-2015 End: 08-03-2015 PFM Divina Giles PA-C Work Phone: Start: 08-03-2015 End: 08-04-2015 Documentation of current medications Divina Giles PA-C Work Phone: Start: 08-03-2015 End: 08-03-2015 Follow Up Appt 3 months Divina Giles PA-C Work Phone: Start: 08-03-2015 [...] 03-30-2015 End: 07-20-2015 Follow Up Appt Other MIKA Anton-C Work Phone: Start: 03-30-2015 End: 07-20-2015 Follow Up Appt Other MIKA Anton-C Work Phone: Start: 03-16-2015 End: 03-25-2015 *BMP MIKA Anton-C Work Phone: Start: 03-16-2015 End: 03-25-2015 *CBC with Differential MIKA Anton-C Work Phone: Start: 03-16-2015 End: 03-16-2015 Follow up Appt 3 weeks Divina Giles PA-C Work Phone: Start: 03-16-2015 End: 03-16-2015 MMM MIKA Anton-C Work Phone: Start: 03-16-2015 End: 03-25-2015 Natriuretic peptide B [Mass/volume] in Blood Divina Giles PA-C Work Phone: Start: 03-16-2015 End: 03-25-2015 Basic metabolic 2000 panel - Serum or Plasma MIKA Anton-C Work Phone: Start: 03-16-2015 End: 03-25-2015 CBC W Auto Differential panel - Blood MIKA Anton-C Work Phone: Start: 03-16-2015 End: 03-16-2015 Follow up Appt 3 weeks MIKA Anton-C Work Phone: Start: 03-16-2015 End: 03-16-2015 MMM [...] End: 03-07-2015 Follow Up Appt Other Divina Giles PA-C Work Phone: Start: 03-07-2015 End: 03-08-2015 Documentation of current medications Divina Giles PA-C Work Phone: Start: 03-07-2015 End: 03-07-2015 Follow Up Appt Other Divina Giles PA-C Work Phone: Start: 01-10-2015 End: 01-10-2015 *BMP Divina Giles PA-C Work Phone: Start: 01-10-2015 End: 01-10-2015 *CBC with Differential Divina Giles PA-C Work Phone: Start: 01-10-2015 End: 01-11-2015 Documentation of current medications Divina Giles PA-C Work Phone: Start: 01-10-2015 End: 01-10-2015 Follow Up Appt 3 months Divina Giles PA-C Work Phone: Start: 01-10-2015 [...] Divina Giles PA-C Work Phone: Start: 01-10-2015 Lipid 1996 panel - S silvana or Plasma Kel Nielsen MD Work Phone: Start: 01-10-2015 End: 01-10-2015 Basic metabolic 2000 panel - Serum or Plasma Divina Giles PA-C Work Phone: Start: 01-10-2015 End: 01-10-2015 CBC W Auto Differential panel - Blood Divina Giles PA-C Work Phone: Start: 01-10-2015 End: 01-11-2015 Documentation of current medications Divina Giles PA-C Work Phone: Start: 01-10-2015 End: 01-10-2015 Follow Up Appt 3 months Divina Giles PA-C Work Phone: Start: 01-10-2015 [...] 01-10-2015 Follow Up Appt 3 months Divina Giles PA-C Work Phone: Start: 12-03-2014 End: 01-10-2015 Pacer Clinic Divina Giles PA-C Work Phone: Start: 12-03-2014 End: 12-03-2014 Prgrmg eval implantable in prsn dual lead dfb Divina Giles PA-C Work Phone: Start: 12-03-2014 End: 01-10-2015 Follow Up Appt 3 months Divina Giles PA-C Work Phone: Start: 12-03-2014 [...] Ecg routine ecg w/least 12 lds w/i&r Speeyd Mtz MD Start: 07-16-2014 End: 07-16-2014 Follow [...] MD Start: 01-07-2014 End: 01-07-2014 PFM Speedy tMz MD Start: 11-06-2013 End: 01-10-2015 Cardiac Rehab Speedy Mtz MD Start: 11-06-2013 End: 01-10-2015 Cardiovascular stress test using treadmill Speedy Mtz MD Start: 11-06-2013 End: 01-10-2015 Follow Up Appt 3 months Speedy Mtz MD Start: 11-06-2013 End: 01-10-2015 Pacer Clinic Speedy Mtz MD Start: 11-06-2013 End: 11-06-2013 PFM Speedy Mtz MD Start: 11-06-2013 End: 11-06-2013 [...] 11-01-2013 End: 01-10-2015 *Hepatic Function Panel Divina Giles PA-C Work Phone: Start: 11-01-2013 End: 01-10-2015 Lipid 1996 panel - Serum or Plasma Divina Giles PA-C Work Phone: Start: 11-01-2013 End: 01-10-2015 Hepatic function 2000 panel - Serum or Plasma Divina Giles PA-C Work Phone: Start: 11-01-2013 End: 01-10-2015 Lipid 1996 panel - Serum or Plasma Divina Giles PA-C Work Phone: Start: 10-28-2013 End: 10-28-2013 Follow Up Appt Other Divina Giles PA-C Work Phone: Start: 10-28-2013 [...] End: 08-06-2013 Follow Up Appt Other Divina Giles PA-C Work Phone: Start: 08-05-2013 End: 08-06-2013 [...] 07-24-2013 Follow Up Appt 1 month Divina Giles PA-C Work Phone: Start: 07-01-2013 End: 07-24-2013 MM Divina Giles PA-C Work Phone: Start: 07-01-2013 End: 07-24-2013 Follow Up Appt 1 month Divina Giles PA-C Work Phone: Start: 07-01-2013 End: 07-24-2013 MM Divina Giles PA-C Work Phone: Start: 05-05-2013 [...] 09-03-2012 End: 04-21-2013 *Hepatic Function Panel Khris Sepncer MD Start: 09-03-2012 End: 04-21-2013 Lipid 1996 [...] Khris Spencer MD Start: 04-17-2012 End: 04-17-2013 Embroidery Patternmaker Khris Spencer MD Start: 04-17-2012 End: 04-17-2012 [...] Lois Spencer MD Start: 02-16-2011 Implantation of auto matic cardiac defibrillator IMPLANTATION OF DEFIBRILLATOR, HX OF Arlene Tavarez MD Start: 06-01-2005 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 Speedy Boswell Work Phone: Comment on above: CABG x2- PARK to LAD , SARIAH to OM 06/01/05 History of coronary artery bypass grafting Hx of CABG Dr. Speedy Boswell Work Phone: History of operative procedure on knee S/P arthroscopic partial medial meniscectomy of left knee Dr. Speedy Boswell MD Work Phone: Viral antigen assay Dr. Speedy Boswell Work Phone: Viral antigen assay Dr. Speedy Boswell Work Phone: Plan of Treatment Date Care Activity Detail Author Start: 12-20-2033 Tetanus vaccination TETANUS [facility] Start: 01-07-2025 Potassium [Moles/volume] in Serum or Plasma POTASSIUM [facility] Start: 11-21-2024 Potassium [Moles/volume] in Serum or Plasma POTASSIUM [facility] Start: 08-02-2024 Influenza vaccination Influenza Vaccine (Season Ended) [facility] Start: 05-27-2024 DTaP/Tdap/Td vaccine (3 - Td or Tdap) DTaP/Tdap/Td vaccine (3 - Td or Tdap) [facility] Work Phone: Start: 05-27-2024 DTaP/Tdap/Td Vaccines (3 - Td or Tdap) DTaP/Tdap/Td Vaccines (3 - Td or Tdap) [facility] Start: 05-27-2024 Tetanus vaccination TETANUS U [facility] Start: 12-04-2023 End: 12-04-2023 Admission to same day surgery center 12/04/2023 9:45 AM EST - 12/04/2023 12:15 PM EST Surgery Cardiovascular Imaging Lab [facility] [address] [place] [phone] Justin Pittman MD [address] [place] [phone] ICD Generator Changeout Cardiovascular Imaging Lab [facility] Comment on above: ICD Generator Changeout Start: 12-04-2023 Subsequent hospital visit by physician 12/04/2023 9:45 AM EST Hospital Encounter [facility] [address] [place] [address] [address] [place] [phone] Justin Pittman MD [address] [place] [phone] ICD (implantable cardioverter-defibrill ator) battery depletion [facility] Comment on above: ICD (implantable cardioverter-defibrilla tor) battery depletion Start: 12-02-2023 Medicare Advantage Annual Wellness Visit Medicare Advantage Annual Wellness Visit [facility] Start: 09-10-2023 Patient referral [facility] Work Phone: Start: 08-02-2023 COVID-19 Vaccine ( season) COVID-19 Vaccine ( season) [facility] Start: 08-02-2023 Influenza vaccination Influenza Vaccine (#1) [facility] Start: 10-27-2022 [facility] Start: 08-15-2022 COVID-19 Vaccine (4 - Booster for Moderna series) COVID-19 Vaccine (4 - Booster for Moderna series) [facility] Start: 08-09-2022 Patient referral [facility] Work Phone: Start: 05-25-2022 Creatinine measurement [facility] Start: 05-25-2022 Potassium measurement Potassium Level [facility] Start: 05-25-2022 Potassium monitoring Potassium monitoring [facility] Work Phone: Start: 08-02-2021 Influenza vaccination Flu vaccine (#1) [facility] Work Phone: Start: 2020 Abdominal aortic aneurysm screening ABDOMINAL AORTIC ANEURYSM HIGH RISK SCREEN [facility] Start: 2020 Pneumococcal 65+ years Vaccine (1 of 1 - PPSV23) Pneumococcal 65+ years Vaccine (1 of 1 - PPSV23) [facility] Work Phone: Start: 01-10-2020 Lipid panel Lipid Panel [facility] Start: 05-19-2019 Annual Wellness Visit (AWV) Annual Wellness Visit (AWV) [facility] Work Phone: Start: 11-01-2018 Lipid panel Lipid Panel [facility] Start: 01-08-2018 End: 01-08-2018 Appointment Appointment [facility] Work Phone: Start: 12-20-2017 End: 12-20-2017 Appointment Appointment [facility] Work Phone: Start: 09-13-2017 End: 09-13-2017 Follow Up Appt 3 months Follow Up Appt 3 months [facility] Work Phone: Start: 09-13-2017 End: 09-13-2017 Pacer Clinic [facility] Work Phone: Start: 09-13-2017 End: 09-13-2017 Patient encounter procedure App[facility]ment [facility] Work Phone: Start: 09-13-2017 End: 09-13-2017 Follow Up Appt 3 months Follow Up Appt 3 months [facility] Work Phone: Start: 09-13-2017 End: 09-13-2017 Pacer Clinic Pacer Clinic [facility] Work Phone: Start: 07-16-2017 End: 07-16-2017 Patient encounter procedure Appointment [facility] Work Phone: Start: 07-03-2017 End: 07-07-2017 Follow Up Appt Other Follow Up Appt Other [facility] Work Phone: Start: 07-03-2017 End: 07-03-2017 Patient encounter procedure Appointment [facility] Work Phone: Start: 07-03-2017 End: 07-07-2017 Follow Up Appt Other Follow Up Appt Other [facility] Work Phone: Start: 07-02-2017 End: 07-02-2017 Patient encounter procedure Appointment [facility] Work Phone: Start: 06-19-2017 End: 06-19-2017 Esophagogastroduodenoscopy transoral diagnostic Upper gastrointestinal endoscopy [facility] Work Phone: Start: 06-19-2017 End: 06-19-2017 Follow Up Appt Other Follow Up Appt Other [facility] Work Phone: Start: 06-19-2017 End: 06-19-2017 Patient encounter procedure Appointment [facility] Work Phone: Start: 06-19-2017 End: 06-19-2017 Esophagogastroduodenoscopy transoral diagnostic Upper gastrointestinal endoscopy [facility] Work Phone: Start: 06-19-2017 End: 06-19-2017 Follow Up Appt Other Follow Up Appt Other [facility] Work Phone: Start: 06-14-2017 End: 06-14-2017 Follow Up Appt 3 months Follow Up Appt 3 months [facility] Work Phone: Start: 06-14-2017 End: 06-14-2017 Follow Up Appt 6 months Follow Up Appt 6 months [facility] Work Phone: Start: 06-14-2017 End: 06-14-2017 Pacer Clinic [facility]er Clinic [facility] Work Phone: Start: 06-14-2017 End: 06-14-2017 PFM PFM [facility] Work Phone: Start: 06-14-2017 End: 06-14-2017 Patient encounter procedure Appointment [facility] Work Phone: Start: 06-14-2017 End: 06-14-2017 Follow Up Appt 3 months Follow Up Appt 3 months [facility] Work Phone: Start: 06-14-2017 End: 06-14-2017 Follow Up Appt 6 months Follow Up Appt 6 months [facility] Work Phone: Start: 06-14-2017 End: 06-14-2017 Pacer Clinic [facility]er Clinic [facility] Work Phone: Start: 06-14-2017 End: 06-14-2017 PFM PFM [facility] Work Phone: Start: 06-05-2017 End: 07-07-2017 Follow Up Appt 1 month Follow Up Appt 1 month [facility] Work Phone: Start: 06-05-2017 End: 07-07-2017 Follow Up Appt 1 month Follow Up Appt 1 month [facility] Work Phone: Start: 05-28-2017 End: 05-28-2017 Patient encounter procedure Appointment [facility] Work Phone: Start: 05-23-2017 End: 05-23-2017 Patient encounter procedure Appointment [facility] Work Phone: Start: 05-15-2017 End: 05-28-2017 Follow Up Appt Other Follow Up Appt Other [facility] Work Phone: Start: 05-15-2017 End: 05-15-2017 Patient encounter procedure Appointment [facility] Work Phone: Start: 05-15-2017 End: 05-28-2017 Follow Up Appt Other Follow Up Appt Other [facility] Work Phone: Start: 05-01-2017 End: 05-01-2017 Patient encounter procedure Appointment [facility] Work Phone: Start: 04-03-2017 End: 04-03-2017 Surgery Referral Surgery Referral Lowell Otero MD, [facility], [address], [address], [place], [address] [facility] Work Phone: Start: 04-03-2017 End: 05-24-2017 Admission to same day surgery center Surgery Referral Lowell Otero MD, [facility], [address], [address], [place], [address] [facility] Work Phone: Start: 12-14-2016 End: 12-14-2016 Device Interrogation Device Interrogation [facility] Work Phone: Start: 12-14-2016 End: 06-06-2017 Follow Up Appt 3 months Follow Up Appt 3 months [facility] Work Phone: Start: 12-14-2016 End: 12-14-2016 Follow Up Appt 6 months Follow Up Appt 6 months [facility] Work Phone: Start: 12-14-2016 End: 12-14-2016 MMM MMM [facility] Work Phone: Start: 12-14-2016 End: 06-06-2017 Pacer Clinic [facility] Work Phone: Start: 12-14-2016 End: 12-14-2016 Device Interrogation Device Interrogation [facility] Work Phone: Start: 12-14-2016 End: 06-06-2017 Follow Up Appt 3 months Follow Up Appt 3 months [facility] Work Phone: Start: 12-14-2016 End: 12-14-2016 Follow Up Appt 6 months Follow Up Appt 6 months [facility] Work Phone: Start: 12-14-2016 End: 12-14-2016 MMM MMM [facility] Work Phone: Start: 12-14-2016 End: 06-06-2017 Pacer Clinic [facility] Work Phone: Start: 09-05-2016 End: 12-14-2016 Follow Up Appt 3 months Follow Up Appt 3 months [facility] Work Phone: Start: 09-05-2016 End: 09-05-2016 Follow Up Appt Other Follow Up Appt Other [facility] Work Phone: Start: 09-05-2016 End: 12-14-2016 Pacer Clinic [facility] Work Phone: Start: 09-05-2016 End: 12-14-2016 Follow Up Appt 3 months Follow Up Appt 3 months [facility] Work Phone: Start: 09-05-2016 End: 09-05-2016 Follow Up Appt Other Follow Up Appt Other [facility] Work Phone: Start: 09-05-2016 End: 12-14-2016 Pacer Clinic [facility] Work Phone: Start: 06-01-2016 End: 08-22-2016 Follow Up Appt 3 months Follow Up Appt 3 months [facility] Work Phone: Start: 06-01-2016 End: 06-01-2016 Follow Up Appt 6 months Follow Up Appt 6 months [facility] Work Phone: Start: 06-01-2016 End: 06-01-2016 MMM MMM [facility] Work Phone: Start: 06-01-2016 End: 06-01-2016 Nuclear stress test -Lexiscan Nuclear stress test -Lexiscan [facility] Work Phone: Start: 06-01-2016 End: 08-22-2016 Pacer Clinic Pac[facility] Work Phone: Start: 06-01-2016 End: 06-01-2016 PFM PFM [facility] Work Phone: Start: 06-01-2016 End: 08-22-2016 Follow Up Appt 3 months Follow Up Appt 3 months [facility] Work Phone: Start: 06-01-2016 End: 06-01-2016 Follow Up Appt 6 months Follow Up Appt 6 months [facility] Work Phone: Start: 06-01-2016 End: 06-01-2016 MMM MMM [facility] Work Phone: Start: 06-01-2016 End: 06-01-2016 Nuclear stress test -Lexiscan Nuclear stress test -Lexiscan [facility] Work Phone: Start: 06-01-2016 End: 08-22-2016 Pacer Clinic [facility] Work Phone: Start: 06-01-2016 End: 06-01-2016 PFM PFM [facility] Work Phone: Start: 02-28-2016 End: 05-18-2016 Follow Up Appt 3 months Follow Up Appt 3 months [facility] Work Phone: Start: 02-28-2016 End: 05-18-2016 Pacer Clinic [facility] Work Phone: Start: 02-28-2016 End: 05-18-2016 Follow Up Appt 3 months Follow Up Appt 3 months [facility] Work Phone: Start: 02-28-2016 End: 05-18-2016 Pacer Clinic [facility] Work Phone: Start: 11-30-2015 End: 11-30-2015 Device Interrogation Device Interrogation [facility] Work Phone: Start: 11-30-2015 End: 11-30-2015 Echocardiography Echocardiogram (complete) [facility] Work Phone: Start: 11-30-2015 End: 05-18-2016 Follow Up Appt 3 months Follow Up Appt 3 months [facility] Work Phone: Start: 11-30-2015 End: 11-30-2015 Follow Up Appt 6 months Follow Up Appt 6 months [facility] Work Phone: Start: 11-30-2015 End: 11-30-2015 MMM MMM [facility] Work Phone: Start: 11-30-2015 End: 05-18-2016 Pacer Clinic [facility] Work Phone: Start: 11-30-2015 End: 11-30-2015 Device Interrogation Device Interrogation [facility] Work Phone: Start: 11-30-2015 End: 11-30-2015 Echocardiography Echocardiogram (complete) [facility] Work Phone: Start: 11-30-2015 End: 05-18-2016 Follow Up Appt 3 months Follow Up Appt 3 months [facility] Work Phone: Start: 11-30-2015 End: 11-30-2015 Follow Up Appt 6 months Follow Up Appt 6 months [facility] Work Phone: Start: 11-30-2015 End: 11-30-2015 MMM MMM [facility] Work Phone: Start: 11-30-2015 End: 05-18-2016 Pacer Clinic Pac[facility] Clinic [facility] Work Phone: Start: 08-17-2015 End: 08-17-2015 *CBC with Differential *CBC with Differential [facility] Work Phone: Start: 08-17-2015 End: 05-18-2016 Follow Up Appt 3 months Follow Up Appt 3 months [facility] Work Phone: Start: 08-17-2015 End: 05-18-2016 Pacer Clinic Pac[facility] Clinic [facility] Work Phone: Start: 08-17-2015 End: 08-17-2015 CBC W Auto Differential panel - Blood *CBC with Differential [facility] Work Phone: Start: 08-17-2015 End: 05-18-2016 Follow Up Appt 3 months Follow Up Appt 3 months [facility] Work Phone: Start: 08-17-2015 End: 05-18-2016 Pacer Clinic [facility] Work Phone: Start: 08-03-2015 End: 08-03-2015 Follow Up Appt 3 months Follow Up Appt 3 months [facility] Work Phone: Start: 08-03-2015 End: 08-03-2015 PFM PFM [facility] Work Phone: Start: 08-03-2015 End: 08-03-2015 Follow Up Appt 3 months Follow Up Appt 3 months [facility] Work Phone: Start: 08-03-2015 End: 08-03-2015 PFM PFM [facility] Work Phone: Start: 05-12-2015 End: 07-20-2015 Follow Up Appt 3 months Follow Up Appt 3 months [facility] Work Phone: Start: 05-12-2015 End: 07-20-2015 Pacer Clinic Pacer Clinic [facility] Work Phone: Start: 05-12-2015 End: 07-20-2015 Follow Up Appt 3 months Follow Up Appt 3 months [facility] Work Phone: Start: 05-12-2015 End: 07-20-2015 Pacer Clinic Pac[facility] Clinic [facility] Work Phone: Start: 05-04-2015 End: 07-20-2015 *BMP *BMP [facility] Work Phone: Start: 05-04-2015 End: 07-20-2015 Follow Up Appt 3 months Follow Up Appt 3 months [facility] Work Phone: Start: 05-04-2015 End: 07-20-2015 MMM MMM [facility] Work Phone: Start: 05-04-2015 End: 07-20-2015 Basic metabolic 2000 panel - Serum or Plasma *BMP [facility] Work Phone: Start: 05-04-2015 End: 07-20-2015 Follow Up Appt 3 months Follow Up Appt 3 months [facility] Work Phone: Start: 05-04-2015 End: 07-20-2015 MMM MMM [facility] Work Phone: Start: 05-02-2015 End: 05-03-2015 *BMP *BMP [facility] Work Phone: Start: 05-02-2015 End: 05-03-2015 Basic metabolic 2000 panel - Serum or Plasma *BMP [facility] Work Phone: Start: 2015 RSV Immunization aged 60 or older (1 - 1-dose 60+ series) RSV Immunization aged 60 or older (1 - 1-dose 60+ series) [employer] Start: 03-30-2015 End: 07-20-2015 Follow Up Appt Other Follow Up Appt Other [facility] Work Phone: Start: 03-30-2015 End: 07-20-2015 Follow Up Appt Other Follow Up Appt Other [facility] Work Phone: Start: 03-16-2015 End: 03-25-2015 *BMP *BMP [facility] Work Phone: Start: 03-16-2015 End: 03-25-2015 *CBC with Differential *CBC with Differential [facility] Work Phone: Start: 03-16-2015 End: 03-25-2015 BNP *Brain Natriuretic Peptide BNP [facility] Work Phone: Start: 03-16-2015 End: 03-16-2015 Follow up Appt 3 weeks Follow up Appt 3 weeks [facility] Work Phone: Start: 03-16-2015 End: 03-16-2015 MMM MMM [facility] Work Phone: Start: 03-16-2015 End: 03-25-2015 Basic metabolic 2000 panel - Serum or Plasma *BMP [facility] Work Phone: Start: 03-16-2015 End: 03-25-2015 CBC W Auto Differential panel - Blood *CBC with Differential [facility] Work Phone: Start: 03-16-2015 End: 03-16-2015 Follow up Appt 3 weeks Follow up Appt 3 weeks [facility] Work Phone: Start: 03-16-2015 End: 03-16-2015 MMM MMM [facility] Work Phone: Start: 03-16-2015 End: 03-25-2015 Natriuretic peptide B [Mass/volume] in Blood *Brain Natriuretic Peptide BNP [facility] Work Phone: Start: 03-11-2015 End: 03-11-2015 *BMP *BMP [facility] Work Phone: Start: 03-11-2015 End: 03-11-2015 Basic metabolic 2000 panel - Serum or Plasma *BMP [facility] Work Phone: Start: 03-07-2015 End: 03-07-2015 Follow Up Appt Other Follow Up Appt Other [facility] Work Phone: Start: 03-07-2015 End: 03-07-2015 Follow Up Appt Other Follow Up Appt Other [facility] Work Phone: Start: 01-10-2015 End: 01-10-2015 *BMP *BMP [facility] Work Phone: Start: 01-10-2015 End: 01-10-2015 *CBC with Differential *CBC with Differential [facility] Work Phone: Start: 01-10-2015 End: 01-10-2015 Follow Up Appt 3 months Follow Up Appt 3 months [facility] Work Phone: Start: 01-10-2015 End: 01-10-2015 Magnesium *Magnesium [facility] Work Phone: Start: 01-10-2015 End: 01-10-2015 Pacer Clinic Pac[facility] Clinic [facility] Work Phone: Start: 01-10-2015 End: 01-10-2015 PFM PFM [facility] Work Phone: Start: 01-10-2015 End: 01-10-2015 Thyroid stimulating hormone (TSH) *TSH [facility] Work Phone: Start: 01-10-2015 End: 01-10-2015 Basic metabolic 2000 panel - Serum or Plasma *BMP [facility] Work Phone: Start: 01-10-2015 End: 01-10-2015 CBC W Auto Differential panel - Blood *CBC with Differential [facility] Work Phone: Start: 01-10-2015 End: 01-10-2015 Follow Up Appt 3 months Follow Up Appt 3 months [facility] Work Phone: Start: 01-10-2015 End: 01-10-2015 Magnesium [Mass/volume] in Serum or Plasma *Magnesium [facility] Work Phone: Start: 01-10-2015 End: 01-10-2015 Pacer Clinic Pacer Clinic [facility] Work Phone: Start: 01-10-2015 End: 01-10-2015 PFM PFM [facility] Work Phone: Start: 01-10-2015 End: 01-10-2015 Thyrotropin [Units/volume] in Serum or Plasma *TSH [facility] Work Phone: Start: 12-03-2014 End: 01-10-2015 Follow Up Appt 3 months Follow Up Appt 3 months [facility] Work Phone: Start: 12-03-2014 End: 01-10-2015 Pacer Clinic Pacer Clinic [facility] Work Phone: Start: 12-03-2014 End: 01-10-2015 Follow Up Appt 3 months Follow Up Appt 3 months [facility] Work Phone: Start: 12-03-2014 End: 01-10-2015 Pacer Clinic Pac[facility] Work Phone: Start: 08-19-2014 End: 01-10-2015 Follow Up Appt 3 months Follow Up Appt 3 months [facility] Work Phone: Start: 08-19-2014 End: 01-10-2015 Pacer Clinic Pacer Clinic [facility] Work Phone: Start: 08-19-2014 End: 01-10-2015 Follow Up Appt 3 months Follow Up Appt 3 months [facility] Work Phone: Start: 08-19-2014 End: 01-10-2015 Pacer Clinic Pac[facility] Clinic [facility] Work Phone: Start: 07-16-2014 End: 07-16-2014 Ecg routine ecg w/least 12 lds w/i&r EKG (In office) [facility] Work Phone: Start: 07-16-2014 End: 07-16-2014 Follow Up Appt 6 months Follow Up Appt 6 months [facility] Work Phone: Start: 07-16-2014 End: 07-16-2014 PFM PFM [facility] Work Phone: Start: 07-16-2014 End: 07-16-2014 Ecg routine ecg w/least 12 lds w/i&r EKG (In office) [facility] Work Phone: Start: 07-16-2014 End: 07-16-2014 Follow Up Appt 6 months Follow Up Appt 6 months [facility] Work Phone: Start: 07-16-2014 End: 07-16-2014 PFM PFM [facility] Work Phone: Start: 05-14-2014 End: 01-10-2015 Follow Up Appt 3 months Follow Up Appt 3 months [facility] Work Phone: Start: 05-14-2014 End: 01-10-2015 Pacer Clinic Pacer Clinic [facility] Work Phone: Start: 05-14-2014 End: 01-10-2015 Follow Up Appt 3 months Follow Up Appt 3 months [facility] Work Phone: Start: 05-14-2014 End: 01-10-2015 Pacer Clinic Pac[facility] Clinic [facility] Work Phone: Start: 02-25-2014 End: 03-07-2015 External Counterpulsation Therapy External Counterpulsation Therapy [address], [address], [place], [address] [facility] Work Phone: Start: 02-25-2014 End: 02-25-2014 Us abdominal real time w/image limited US Abdominal (aneurysm screening) [facility] Work Phone: Start: 02-25-2014 End: 03-07-2015 External Counterpulsation Therapy External Counterpulsation Therapy [address], [address], [place], [address] [facility] Work Phone: Start: 02-25-2014 End: 02-25-2014 Us abdominal real time w/image limited US Abdominal (aneurysm screening) [facility] Work Phone: Start: 02-05-2014 End: 01-10-2015 Follow Up Appt 3 months Follow Up Appt 3 months [facility] Work Phone: Start: 02-05-2014 End: 01-10-2015 Pacer Clinic Pacer Clinic [facility] Work Phone: Start: 02-05-2014 End: 01-10-2015 Follow Up Appt 3 months Follow Up Appt 3 months [facility] Work Phone: Start: 02-05-2014 End: 01-10-2015 Pacer Clinic [facility] Work Phone: Start: 01-07-2014 End: 01-07-2014 Follow Up Appt 6 months Follow Up Appt 6 months [facility] Work Phone: Start: 01-07-2014 End: 01-07-2014 PFM PFM [facility] Work Phone: Start: 01-07-2014 End: 01-07-2014 Follow Up Appt 6 months Follow Up Appt 6 months [facility] Work Phone: Start: 01-07-2014 End: 01-07-2014 PFM PFM [facility] Work Phone: Start: 11-06-2013 End: 01-10-2015 Cardiac Rehab Cardiac Rehab [facility] Work Phone: Start: 11-06-2013 End: 11-09-2013 Cardiovascular stress test using treadmill Treadmill stress test (no imaging) [facility] Work Phone: Start: 11-06-2013 End: 01-10-2015 Follow Up Appt 3 months Follow Up Appt 3 months [facility] Work Phone: Start: 11-06-2013 End: 01-10-2015 Pacer Clinic Pacer Clinic [facility] Work Phone: Start: 11-06-2013 End: 11-06-2013 PFM PFM [facility] Work Phone: Start: 11-06-2013 End: 01-10-2015 Cardiac Rehab Cardiac Rehab [facility] Work Phone: Start: 11-06-2013 End: 11-09-2013 Cardiovascular stress test using treadmill Treadmill stress test (no imaging) [facility] Work Phone: Start: 11-06-2013 End: 01-10-2015 Follow Up Appt 3 months Follow Up Appt 3 months [facility] Work Phone: Start: 11-06-2013 End: 01-10-2015 Pacer Clinic Pacer Clinic [facility] Work Phone: Start: 11-06-2013 End: 11-06-2013 PFM PFM [facility] Work Phone: Start: 11-01-2013 End: 01-10-2015 *Hepatic Function Panel *Hepatic Function Panel [facility] Work Phone: Start: 11-01-2013 End: 01-10-2015 Lipid panel [AGGREGATE] *Lipid Profile CC PCP [facility] Work Phone: Start: 11-01-2013 End: 01-10-2015 Hepatic function 2000 panel - Serum or Plasma *Hepatic Function Panel [facility] Work Phone: Start: 11-01-2013 End: 01-10-2015 Lipid 1996 panel - Serum or Plasma *Lipid Profile CC PCP [facility] Work Phone: Start: 10-28-2013 End: 10-28-2013 Follow Up Appt Other Follow Up Appt Other [facility] Work Phone: Start: 10-28-2013 End: 10-28-2013 Follow Up Appt Other Follow Up Appt Other [facility] Work Phone: Start: 10-16-2013 End: 10-28-2013 *BMP *BMP [facility] Work Phone: Start: 10-16-2013 End: 10-28-2013 aPTT *PTT-Partial Thromboplastin Time [facility] Work Phone: Start: 10-16-2013 End: 10-28-2013 CBC W Auto Differential panel - Blood *CBC without Diff [facility] Work Phone: Start: 10-16-2013 End: 10-28-2013 Chest x-ray X-Ray, Chest, PA & Lateral [facility] Work Phone: Start: 10-16-2013 End: 10-28-2013 Ecg routine ecg w/least 12 lds w/i&r EKG (In office) [facility] Work Phone: Start: 10-16-2013 End: 10-28-2013 INR Coag RelTime (PPP) *PT/INR [facility] Work Phone: Start: 10-16-2013 End: 10-09-2013 Left Heart Cath W/Grafts Left Heart Cath W/Grafts [facility] Work Phone: Start: 10-16-2013 End: 10-28-2013 aPTT in Platelet poor plasma by Coagulation assay *PTT-Partial Thromboplastin Time [facility] Work Phone: Start: 10-16-2013 End: 10-28-2013 Basic metabolic 2000 panel - Serum or Plasma *BMP [facility] Work Phone: Start: 10-16-2013 End: 10-28-2013 CBC W Auto Differential panel - Blood *CBC without Diff [facility] Work Phone: Start: 10-16-2013 End: 10-28-2013 Chest x-ray X-Ray, Chest, PA & Lateral [facility] Work Phone: Start: 10-16-2013 End: 10-28-2013 Ecg routine ecg w/least 12 lds w/i&r EKG (In office) [facility] Work Phone: Start: 10-16-2013 End: 10-28-2013 INR in Platelet poor plasma by Coagulation assay *PT/INR [facility] Work Phone: Start: 10-16-2013 End: 10-09-2013 Left Heart Cath W/Grafts Left Heart Cath W/Grafts [facility] Work Phone: Start: 10-07-2013 End: 10-28-2013 Follow Up Appt Other Follow Up Appt Other [facility] Work Phone: Start: 10-07-2013 End: 10-28-2013 MMM MMM [facility] Work Phone: Start: 10-07-2013 End: 10-28-2013 Follow Up Appt Other Follow Up Appt Other [facility] Work Phone: Start: 10-07-2013 End: 10-28-2013 MMM MMM [facility] Work Phone: Start: 08-26-2013 End: 10-28-2013 Follow Up Appt 3 months Follow Up Appt 3 months [facility] Work Phone: Start: 08-26-2013 End: 10-28-2013 Pacer Clinic Pacer Clinic [facility] Work Phone: Start: 08-26-2013 End: 10-28-2013 Follow Up Appt 3 months Follow Up Appt 3 months [facility] Work Phone: Start: 08-26-2013 End: 10-28-2013 Pacer Clinic Pacer Clinic [facility] Work Phone: Start: 08-06-2013 End: 08-06-2013 Follow Up Appt Other Follow Up Appt Other [facility] Work Phone: Start: 08-06-2013 End: 08-06-2013 Follow Up Appt Other Follow Up Appt Other [facility] Work Phone: Start: 08-05-2013 End: 08-06-2013 Follow Up Appt 3 months Follow Up Appt 3 months [facility] Work Phone: Start: 08-05-2013 End: 08-06-2013 Pacer Clinic Pacer Clinic [facility] Work Phone: Start: 08-05-2013 End: 08-06-2013 Follow Up Appt 3 months Follow Up Appt 3 months [facility] Work Phone: Start: 08-05-2013 End: 08-06-2013 Pacer Clinic Pac[facility] Clinic [facility] Work Phone: Start: 07-01-2013 End: 07-24-2013 Follow Up Appt 1 month Follow Up Appt 1 month [facility] Work Phone: Start: 07-01-2013 End: 07-24-2013 MMM MMM [facility] Work Phone: Start: 07-01-2013 End: 07-24-2013 Follow Up Appt 1 month Follow Up Appt 1 month [facility] Work Phone: Start: 07-01-2013 End: 07-24-2013 MMM MMM [facility] Work Phone: Start: 05-05-2013 End: 06-03-2013 Follow Up Appt 3 months Follow Up Appt 3 months [facility] Work Phone: Start: 05-05-2013 End: 06-03-2013 Pacer Clinic Pacer Clinic [facility] Work Phone: Start: 05-05-2013 End: 06-03-2013 Follow Up Appt 3 months Follow Up Appt 3 months [facility] Work Phone: Start: 05-05-2013 End: 06-03-2013 Pacer Clinic Pac[facility] Clinic [facility] Work Phone: Start: 04-22-2013 End: 05-08-2013 *Hepatic Function Panel *Hepatic Function Panel [facility] Work Phone: Start: 04-22-2013 End: 05-08-2013 Lipid panel [AGGREGATE] *Lipid Profile [facility] Work Phone: Start: 04-22-2013 End: 05-08-2013 Hepatic function 2000 panel - Serum or Plasma *Hepatic Function Panel [facility] Work Phone: Start: 04-22-2013 End: 05-08-2013 Lipid 1996 panel - Serum or Plasma *Lipid Profile [facility] Work Phone: Start: 04-20-2013 End: 04-21-2013 Ecg routine ecg w/least 12 lds w/i&r EKG (In office) [facility] Work Phone: Start: 04-20-2013 End: 04-21-2013 Echocardiography Echocardiogram (complete) [facility] Work Phone: Start: 04-20-2013 End: 04-21-2013 Follow Up Appt 6 months Follow Up Appt 6 months [facility] Work Phone: Start: 04-20-2013 End: 04-21-2013 PFM PFM [facility] Work Phone: Start: 04-20-2013 End: 04-21-2013 Ecg routine ecg w/least 12 lds w/i&r EKG (In office) [facility] Work Phone: Start: 04-20-2013 End: 04-21-2013 Echocardiography Echocardiogram (complete) [facility] Work Phone: Start: 04-20-2013 End: 04-21-2013 Follow Up Appt 6 months Follow Up Appt 6 months [facility] Work Phone: Start: 04-20-2013 End: 04-21-2013 PFM PFM [facility] Work Phone: Start: 10-30-2012 End: 04-21-2013 Follow Up Appt 6 months Follow Up Appt 6 months [facility] Work Phone: Start: 10-30-2012 End: 04-21-2013 Follow Up Appt 6 months Follow Up Appt 6 months [facility] Work Phone: Start: 09-03-2012 End: 04-21-2013 *BMP *BMP [facility] Work Phone: Start: 09-03-2012 End: 04-21-2013 *Hepatic Function Panel *Hepatic Function Panel [facility] Work Phone: Start: 09-03-2012 End: 04-21-2013 Lipid panel [AGGREGATE] *Lipid Profile [facility] Work Phone: Start: 09-03-2012 End: 04-21-2013 Magnesium *Magnesium [facility] Work Phone: Start: 09-03-2012 End: 04-21-2013 Basic metabolic 2000 panel - Serum or Plasma *BMP [facility] Work Phone: Start: 09-03-2012 End: 04-21-2013 Hepatic function 2000 panel - Serum or Plasma *Hepatic Function Panel [facility] Work Phone: Start: 09-03-2012 End: 04-21-2013 Lipid 1996 panel - Serum or Plasma *Lipid Profile [facility] Work Phone: Start: 09-03-2012 End: 04-21-2013 Magnesium [Mass/volume] in Serum or Plasma *Magnesium [facility] Work Phone: Start: 04-17-2012 End: 04-18-2012 [employer]maker [employer] [facility], [address] [place] [address], [id number] [facility] Work Phone: Start: 04-17-2012 End: 04-17-2012 Follow Up Appt 6 months Follow Up Appt 6 months [facility] Work Phone: Start: 04-17-2012 End: 04-17-2012 Follow Up Appt 6 months Follow Up Appt 6 months [facility] Work Phone: Start: 04-17-2012 End: 04-18-2012 Patient encounter procedure [employer] [facility], [address] [place] [address], [id number] [facility] Work Phone: Start: 03-05-2012 End: 04-09-2012 *Hepatic Function Panel *Hepatic Function Panel [facility] Work Phone: Start: 03-05-2012 End: 04-09-2012 Lipid panel [AGGREGATE] *Lipid Profile [facility] Work Phone: Start: 03-05-2012 End: 04-09-2012 Hepatic function 2000 panel - Serum or Plasma *Hepatic Function Panel [facility] Work Phone: Start: 03-05-2012 End: 04-09-2012 Lipid 1996 panel - Serum or Plasma *Lipid Profile [facility] Work Phone: Start: 12-10-2011 End: 12-10-2011 Follow Up Appt Other Follow Up Appt Other [facility] Work Phone: Start: 12-10-2011 End: 12-10-2011 Follow Up Appt Other Follow Up Appt Other [facility] Work Phone: Start: 08-28-2011 Pneumococcal Vaccine: 65+ Years (2 - PCV) Pneumococcal Vaccine: 65+ Years (2 - PCV) [facility] Start: 08-28-2011 Pneumococcal Vaccine: 65+ Years (2 of 2 - PCV) Pneumococcal Vaccine: 65+ Years (2 of 2 - PCV) [facility] Start: 2005 Prostate specific antigen measurement PROSTATE CANCER SCREENING DISCUSSION [facility] Start: 2005 Screening for malignant neoplasm of colon Colon cancer screen colonoscopy [facility] Work Phone: Start: 2005 Shingles Vaccine (1 of 2) Shingles Vaccine (1 of 2) [facility] Work Phone: Start: 2000 Screening for malignant neoplasm of colon COLORECTAL CANCER SCREENING DISCUSSION [facility] Start: 1995 Diabetes screen Diabetes screen [facility] Work Phone: Start: 1995 Lipid panel LIPID SCREENING [facility] Start: 1973 Diabetes mellitus screening Diabetes Screening [facility] Start: 1973 Hepatitis C screening Hepatitis C Screening [facility] Start: 1967 Depression Screening Depression Screening [facility] Start: 1965 Lipid panel Lipid screen [facility] Work Phone: Start: 1955 Abdominal aortic aneurysm screening AAA screen [facility] Work Phone: Start: 1955 Echocardiography Echocardiogram [facility] Start: 1955 Hepatitis B Vaccines (1 of 3 - 3-dose series) Hepatitis B Vaccines (1 of 3 - 3-dose series) [facility] Start: 1955 Hepatitis C screening [facility] Start: 1955 Medicare Advantage Annual Wellness Visit (AWV) Medicare Advantage Annual Wellness Visit (AWV) [facility] Start: 1955 Screening for malignant neoplasm of colon [facility] Alanine aminotransfe rase [Enzymatic activity/volume] in Serum or Plasma [facility] Aspartate aminotrans ferase [Enzymatic activity/volume] in Serum or Plasma [facility] AUTOPAP AutoPAP Respirat ory Care Routine QHS until discontinued starting 05/25/2021 [facility] Work Phone: Comment on above: QHS until discontinued starting 05/25/20 Electrophysiology study EP PROCE DURE - EPS/ABLATION/DEVICE Electrophysiology Routine ICD (implantable cardioverter-defibrill ator) battery depletion 01/06/2024 1:36 PM EST [facility] End: 05-24-2021 FL Greater Than 1 Hour FL Greater Than 1 Hour Imaging Routine Once for 1 Occurrences starting 05/24/2021 until 05/24/2021 [facility] Work Phone: Comment on above: Once for 1 Occurrences starting 05/24/20 21 until 05/24/2021 FL Greater Than 1 Hour FL Greate r Than 1 Hour Imaging Routine 05/24/2021 2:20 PM EDT [facility] Work Phone: End: 01-06-2024 Interrogation of cardiac pacemaker PACEMAKER/ICD INTERROGATION Cardiac Services Routine One Time for 1 Occurrences starting 01/06/2024 until 01/06/2024 [facility] Comment on above: One Time for 1 Occurrences starting 04/2024 until 01/06/2024 Lipid 1996 panel - S silvana or Plasma [facility] Oxygen therapy [[facility] Data Set] Initiate Oxygen Therapy Protocol Respiratory Care Routine Daily until discontinued starting 05/24/2021 [facility] Work Phone: Comment on above: Daily until discontinued starting 2020 Patient Education [facility] Work Phone: Patient referral [facility] Work Phone: VL DUP LOWER EXTREMI TY VENOUS BILATERAL VL DUP LOWER EXTREMITY VENOUS BILATERAL Imaging Routine Every Mo,Th until discontinued starting 05/29/2021, 1 completed [facility] Work Phone: Comment on above: Every Mo,Th until discontinued starting 05/29/2021, 1 completed Immunizations Immunization Date Immunization Notes Care Provider Fa [facility] 09-04-2022 influenza virus vaccine, unspecified formulation Kel Nielsen MD Work Phone: [facility] 01-17-2021 Covid (Moderna) Dr. Speedy mckeon Work Phone: [facility] 12-21-2020 Covid (Moderna) Dr. Speedy mckeon Work Phone: [facility] 10-02-[address] Speedy Boswell Work Phone: [facility] 05-27-2014 tetanus toxoid, reduced diphtheria toxoid, and acellular pertussis vaccine, adsorbed Dr. Speedy Boswell Work Phone: [facility] 09-01-[address] Speedy Boswell Work Phone: [facility] 02-13-[address] Veronica Boswell Work Phone: [facility] Work Phone: 02-13-2005 pneumococcal vaccine , unspecified formulation Dr. Speedy Boswell Work Phone: [facility] Payers Date Payer Category Payer Self-pay [id number] 2023 Medicare [id number] 2023 Unknown [id number] 2022 Medicare [id number] 2021 Medicare [id number] 2020 Medicare [id number] 2020 Unknown [id number] 2010 Private Health Insurance [id number] 1955 Unknown [id number] 2.16.840.1.675960.3.579.2.5 94 1955 Unknown [id number] 2.16.840.1.478888.3.579.2.5 94 1955 Unknown [id number] 2.16.840.1.242355.3.579.2.5 94 1955 Unknown [id number] 2.16.840.1.863447.3.579.2.5 94 1955 Unknown [id number] 2.16.840.1.369519.3.579.2.5 94 Medicare [id number] Private Health Insurance [facility] 18 [id number] Unknown [id number] 2.16.840.1.388023.3.579.2.4 62 Unknown [id number] 2.16.840.1.645932.3.579.2.4 62 Unknown [id number] 2.16.840.1.078459.3.579.2.4 62 Unknown [id number] 2.16.840.1.574985.3.579.2.4 62 Unknown [id number] 2.16.840.1.131556.3.579.2.4 62 Unknown [id number] 2.16.840.1.039363.3.579.2.4 62 Unknown [id number] 2.16.840.1.605192.3.579.2.4 62 Unknown [id number] 2.16.840.1.788994.3.579.2.4 62 Unknown [id number] 2.16.840.1.772928.3.579.2.4 62 Unknown [id number] 2.16.840.1.589411.3.579.2.4 62 Unknown [id number] 2.16.840.1.648441.3.579.2.4 62 Unknown [id number] 2.16.840.1.533152.3.579.2.4 62 Unknown [id number] 2.16.840.1.015256.3.579.2.4 62 Unknown [id number] 2.16.840.1.931541.3.579.2.4 62 Unknown [id number] 2.16.840.1.538750.3.579.2.4 62 Unknown [id number] 2.16.840.1.464637.3.579.2.4 62 Unknown [id number] 2.16.840.1.684058.3.579.2.4 62 Unknown [id number] 2.16.840.1.936707.3.579.2.4 62 Unknown [id number] 2.16.840.1.561887.3.579.2.4 62 Unknown [id number] 2.16.840.1.653858.3.579.2.4 62 Social History Date Type Detail Facility Start: 05-25-2021 End: 11-05-2024 Tobacco smoking status [facility] Former smoker [facility] Work Phone: End: 12-02-1980 History of tobacco use Current smoker [facility] End: 12-02-1980 History of tobacco use Cigarette Smoker [facility] Start: 05-25-2021 End: 02-11-2023 Cigarettes smoked current (pack per day) - Reported [facility] Work Phone: Start: 05-25-2021 End: 02-11-2023 Tobacco use and exposure Current user [facility] History of tobacco use Chews Tobacco [facility] Start: 05-25-2021 End: 02-11-2023 Alcohol intake Current drinker of alcohol (finding) [facility] Work Phone: Start: 05-04-2019 Alcohol Comment [facility] Work Phone: Start: 1955 Sex Assigned At Not on file S [facility] Work Phone: Start: 02-01-2023 End: 08-26-2023 Exposure to SARS-CoV-2 (event) Not sure [facility] Start: 02-05-2022 End: 10-30-2023 Tobacco smoking status [facility] Unknown if ever smoked [facility] Start: 02-18-2021 None [facility] Start: 02-18-2021 Alone [facility] Start: 04-06-2021 Non-smoker [facility] Start: 1955 Sex Assigned At Male W [facility] Start: 03-18-2015 End: 08-26-2023 Tobacco use panel [facility] Start: 02-04-2023 Gender identity Identifies as male gender (finding) [facility] Start: 02-04-2023 Sexual orientation Heterosexual (fin sherita) [facility] Medical Equipment Procedure Code Equipment Code Equipment Origin al Text Equipment Identifier Dates SUTURE,2 FIBERLINK FDA Start: 07-28-2018 SWIVELOCK,4.75 D OUBLE LOCK FDA Start: 07-28-2018 STENT,6x26 PERCUFLEX FDA Star t: 06-26-2019 STENT, URETERAL 7X26 FDA Star t: 08-05-2019 SUTURE,2 FIBERLINK FDA Start: 07-28-2018 SWIVELOCK,4.75 D OUBLE LOCK FDA Start: 07-28-2018 STENT,6x26 PERCUFLEX FDA Star t: 06-26-2019 STENT, URETERAL 7X26 FDA Star t: 08-05-2019 SUTURE,2 FIBERLINK FDA Start: 07-28-2018 SWIVELOCK,4.75 D OUBLE LOCK FDA Start: 07-28-2018 STENT,6x26 PERCUFLEX FDA Star t: 06-26-2019 STENT, URETERAL 7X26 FDA Star t: 08-05-2019 SUTURE,2 FIBERLINK FDA Start: 07-28-2018 SWIVELOCK,4.75 D OUBLE LOCK FDA Start: 07-28-2018 STENT,6x26 PERCUFLEX FDA Star t: 06-26-2019 STENT, URETERAL 7X26 FDA Star t: 08-05-2019 SUTURE,2 FIBERLINK FDA Start: 07-28-2018 SWIVELOCK,4.75 D OUBLE LOCK FDA Start: 07-28-2018 STENT,6x26 PERCUFLEX FDA Star t: 06-26-2019 STENT, URETERAL 7X26 FDA Star t: 08-05-2019 SUTURE,2 FIBERLINK FDA Start: 07-28-2018 SWIVELOCK,4.75 D OUBLE LOCK FDA Start: 07-28-2018 STENT,6x26 PERCUFLEX FDA Star t: 06-26-2019 STENT, URETERAL 7X26 FDA Star t: 08-05-2019 SUTURE,2 FIBERLINK FDA Start: 07-28-2018 SWIVELOCK,4.75 D OUBLE LOCK FDA Start: 07-28-2018 STENT,6x26 PERCUFLEX FDA Star t: 06-26-2019 STENT, URETERAL 7X26 FDA Star t: 08-05-2019 Defibrillator Cr d [id number] Fortify Asr Parylene 2 - [id number] Start: 01-06-2024 Lead Pacing 52cm 6fr Endocardium Tendril Sts Bipolar Active - [id number] Start: 01-06-2024 SUTURE,2 FIBERLINK FDA Start: 07-28-2018 SWIVELOCK,4.75 D OUBLE LOCK FDA Start: 07-28-2018 STENT,6x26 PERCUFLEX FDA Star t: 06-26-2019 STENT, URETERAL 7X26 FDA Star t: 08-05-2019 SUTURE,2 FIBERLINK FDA Start: 07-28-2018 SWIVELOCK,4.75 D OUBLE LOCK FDA Start: 07-28-2018 STENT,6x26 PERCUFLEX FDA Star t: 06-26-2019 STENT, URETERAL 7X26 FDA Star t: 08-05-2019 SUTURE,2 FIBERLINK FDA Start: 07-28-2018 SWIVELOCK,4.75 D OUBLE LOCK FDA Start: 07-28-2018 STENT,6x26 PERCUFLEX FDA Star t: 06-26-2019 STENT, URETERAL 7X26 FDA Star t: 08-05-2019 Clinical Notes 08-02-2010 to 05-03-2025 Note Date & Type Note Facility 05-03-2025 Progress note [facility] 05-03-2025 Progress note Note Date/Time May 03, 2025 2:24pm [facility] [place] [address] OFFICE VISIT Date of Service: 05/03/25 MR#: [id number] Acct: [id number] Name: ALBIN ISSA Rep #: [id number] : 1955 Provider: Dr. Fernando Villagomez MD Age/Sex: 70/M Location: [facility] Status: Signed HPI HPI History of Present Illness Details: This gentleman with history of coronary artery disease status post CABG, status post MC to the LAD, ischemic cardiomyopathy, status post ICD placement, hypertension, dyslipidemia and obesity is here for follow-up visit. Denies any chest pains or shortness of breath. No orthopnea or PND. Denies anypalpitations. No lightheadedness or dizziness. No syncope or presyncope. Intake Vital Signs 11/18/24 07:27 05/03/25 11:28 Height 5 ft 7 in 5 ft 7 in Weight: 294 lb BMI 46.0 BP 101/57 L Blood Pressure Location Lt brachial Position Sitting Respiration 18 Pulse 57 L Pulse Source NIBP Intake Visit Reasons: 6 M FU Allergies No Known Allergies Allergy (Verified 11/18/24 07:23) Medications ?Medication ?Instructions ?Recorded ?Confirmed ?Type aspirin 81 mg chewable tablet 81 mg PO QHS [facility] 06/09/17 05/03/25 History Held on 11/18/24. Instructions: Resume on 12/02/24. gabapentin 300 mg capsule 300 mg PO QHS Rls 09/21/20 0 05/03/25 History temazepam 15 mg capsule 15 mg PO QHS PRN Sleep 09/2111/05/24 History trazodone 50 mg tablet 50 mg PO QHS sleep 03/22/21 11/05/24 History escitalopram oxalate 20 mg tablet 20 mg PO DAILY 08/2005/03/25 History multivitamin (Daily Multi-Vitamin 1 tab PO DAILY 05/2705/03/25 History tablet) pantoprazole 40 mg tablet,delayed 40 mg PO DAILY gerd #90 tabs 09/21/24 11/18/24 Rx release clopidogrel 75 mg tablet (Plavix) 75 mg PO DAILY blood clots #90 tabs 10/12/24 05/03/25 Rx Held on 11/18/24. Instructions: Resume on 12/02/24. furosemide 40 mg tablet 40 mg PO BID #180 tabs 10/1905/03/25 Rx acetaminophen 500 mg tablet 1,000 mg PO Q8 PRN fever o r pain 10/21/24 05/03/25 History desloratadine 5 mg tablet 5 mg PO DAILY PRN allergy sy mptoms 10/21/24 05/03/25 History finasteride 5 mg tablet 5 mg PO DAILY 10/21/2405/03 History oxycodone-acetaminophen 5 mg-325 1 tab PO Q6H PRN pain 3 days #12 10/21/24 11/05/24 Rx mg tablet (Percocet) tabs oxycodone 5 mg tablet 5 mg PO Q6H PRN pain 3 days #14 11/18/24 Rx tabs atorvastatin 80 mg tablet 80 mg PO QHS cholesterol #90 tabs 12/03/24 05/03/25 Rx dapagliflozin propanediol 10 mg 10 mg PO DAILY #90 tab s 12/10/24 05/03/25 Rx tablet (Farxiga) carvedilol 25 mg tablet 25 mg PO BID heart #180 tabs 12/25/24 05/03/25 Rx isosorbide mononitrate 60 mg 60 mg PO BID blood pressu re #180 12/25/24 05/03/25 Rx tablet,extended release 24 hr tabs potassium chloride 20 mEq 40 meq (2 x 20 mEq) PO QDAY 02/23/25 Rx tablet,extended release supplement #180 tabs ramipril 10 mg capsule 10 mg PO DAILY #90 caps 04/01 04/25 Rx Ejection fraction %: 40 Have you fallen in the past year?: No PFSH Medical History Above knee amputation of right lower extremity Acute lymphangitis of right lower extremity Anemia Arthritis Atherosclerosis of coronary artery bypass graft without angina pectoris Atherosclerotic heart disease of alutiiq coronary artery without angina pectoris Automatic implantable cardioverter-defibrillator in situ Back pain CAD (coronary artery disease) Cancer Cardiology follow-up encounter Chest pain Chronic Systolic CHF - EF 45% Chronic systolic congestive heart failure Coronary atherosclerosis of bypass graft COVID-19 CPAP (continuous positive airway pressure) dependence Debility Depression Diabetes Difficulty swallowing Effects of radiation Esophageal foreign body Essential hypertension Fall Former smoker Fracture, humerus Gastroenteritis GERD (gastroesophageal reflux disease) GERD (gastroesophageal reflux disease) GERD (gastroesophageal reflux disease) History of echocardiogram History of edema History of 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 History of pain when walking History of stress test ICD (implantable cardioverter-defibrillator) in place (~08/17/10) Injury of head and neck Ischemic cardiomyopathy (~10/30/23) Lateral epicondylitis of left elbow Left elbow pain 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 Lymphedema of Right Leg Lymphedema of right lower extremity Mixed hyperlipidemia Morbid obesity with BMI of 40.0-44.9, adult Obesity (BMI 30-39.9) Over 65 years old Pacemaker Paresthesia of left upper extremity Phantom pain after amputation of lower extremity Renal calculi Shortness of breath SIRS (systemic inflammatory response syndrome) Stroke-like symptoms Stuttering Surgical wound dehiscence TIA (transient ischemic attack) Wears contact lenses Wears glasses Wears hearing aid Wears partial dentures Surgical History History of implantable cardiac defibrillator (ICD) Hx of arthroscopic knee surgery H/O heart artery stent Hx of lithotripsy History of shoulder surgery History of cardiac catheterization Hx of colonoscopy Hx of esophagogastroduodenoscopy Presence of stent in coronary artery (~10/15/13) Postsurgical aortocoronary bypass status (~06/01/05) Family History Mother CAD (coronary artery disease) Father CVA (cerebral vascular accident) Myocardial infarction Brother CAD (coronary artery disease) Hx of CABG Brother CAD (coronary artery disease) Hx of CABG Other Family history of CVA Social History Smoking Status: Former smoker how long ago did patient quit smokin alcohol intake: current alcohol intake frequency: a few times a month substance use type: does not use caffeine: Yes ROS Const Const: Positive for fatigue and weakness; Negative for headache(s) or weight gain ENT ENT: Positive for other (catch in throat with increased congestion); Negative for headache(s), dizziness, Nosebleed/epistaxis or balance problems Cardio Chest Pain: No Palpitations: No Edema: None Muscle aches with walking: None Resp Respiratory: Positive for SOB with activity; Negative for SOB at rest or SOB orthopneaundefinedSOB lying down GI GI: Negative nausea, vomiting or heartburn Musc Musc: Negative for muscle aches/ myalgia, muscle weakness, joint pain or balanceproblems Neuro Neuro: Positive for weakness; Negative for dizziness, lightheadedness, near syncope, syncope or headache(s) Endo Endo: Positive for fatigue Cardiology Exam Const Appearance: comfortable and no acute distress Nutritional Appearance: obese Neck Neck: no JVD Carotids: Negative bruit Chest Auscultation: Bilateral: Clear to Auscultation Cardio Rate: regular rate Rhythm: regular rhythm Heart sounds: S1 normal and S2 normal GI GI: obese Neuro General: patient alert, patient awake and patient oriented x3 Extremities Left trace edema. Right above-knee amputation with prosthetic leg in place. Supplemental Info Supplemental Information Echocardiogram 09/24/2023: Interpretation Summary The study was technically difficult. Mildly dilated left ventricle. The left ventricular ejection fraction is 40-45 %. Apical akinesis Stage 1 diastolic dysfunction. The left atrium is severely enlarged. Echocardiogram 02/18/2021: Interpretation Summary Normal LV size. Mild concentric left ventricular hypertrophy. The estimated ejection fraction is 40 %. Stage 1 diastolic dysfunction. Moderate segmental systolic dysfunction (see wall motion). Contrast injection was performed. Stress Test 09/24/2023: Rest and stress SPECT Cardiolite nuclear imaging status post realignment, normalization, and attenuation correction demonstrate an area of apical infarct. There is mild global hypokinesis. [place] is dyskinetic. The reported LVEF is 46%. Impression: 1. Pharmacologic (Regadenoson) evaluation 2. Peak pharmacologic ECG with no ischemic changes. 3. There were no cardiac dysrhythmias pretest, during pharmacologic infusion, or recovery. 5. Area of apical infarct. No reversible ischemia. 6. The gated Cardiolite study reports an LVEF of 46%. Nuclear Stress Test 12/28/2019: Conclusion: Ischemic cardiomyopathy. Previous anterior apical and lateral apical infarct. No ischemia noted. Cardiac Catheterization 12/29/2013: Final impression: 1. Borderline elevation of the left ventricular end-diastolic pressure 2. Left ventricle: A. Hypokinesis of the anterior segment, akinesis of the anteroapical segment, dyskinesis of the inferior apical segment, hypokinesis of the mid inferior segment B. Estimated LVEF of 30% 3. Left main coronary artery: A. Proximal alutiiq band without angiographically significant appearing disease 4. Left anterior descending coronary: A. Proximal stented segment patent with minimal in-stent luminal irregularities B. Mid vessel with 10-25% appearing stenosis C. Wraparound LAD providing flow to the inferior segments D. Diagonal branch: Small, with proximal 25% appearing stenosis 5. Left circumflex coronary artery: A. Large dominant system B. Proximal 25% appearing stenosis C. Mid minimal luminal irregularities 6. Right coronary artery: A. Small nondominant vessel B. Angiographically normal 7. PARK to the LAD: A. Patent without angiographically significant appearing disease B. Provides competitive flow to the LAD although the LAD receives predominant flow via the alutiiq system 8. Free SARIAH arising from the PARK to an OM: A. Free SARIAH arising from the PARK to an OM is not visualized at this time. Heart Catheterization 2012: Demonstrated a patent PARK which is essentially nonfunctional, 30% ostial left main stenosis, LAD with proximal in-stent 50% stenosis, dominant left circumflexwith no stenosis, nondominant RCA with no stenosis. Reduced ejection fraction of 25-30% with akinetic posterior wall. In December 2013 ejection fraction was noted to be 30%. He did have a stent to his LAD for in-stent stenosis. CAROTID DUPLEX 02/18/2021: Interpretation Summary Smooth calcific plaque at the distal right common carotid and proximal internal carotid artery with less than 50% stenosis of the right internal carotid artery. Less than 50% stenosis right external carotid artery Irregular calcific plaque in the proximal left internal carotid artery with lessthan 50% stenosis. Less than 50% stenosis left external carotid artery Patent and antegrade vertebrals bilaterally Assessment and Plan Assessment and Plan (1) CAD (coronary artery disease): Status: Chronic Qualifiers: Coronary Disease-Associated Artery/Lesion type: unspecified vessel or lesion type [place] vs. transplanted heart: unspecified whether alutiiq or transplanted heart Associated angina: angina presence unspecified Qualified Code(s): I25.10 - Atherosclerotic heart disease of alutiiq coronary artery without angina pectoris Plan: Status post CABG. history of percutaneous intervention to the LAD. Check Lexiscan stress Myoview to evaluate for silent ischemia. Aspirin. Clopidogrel. Beta-blockers. Nitrates. Statins. (2) Ischemic cardiomyopathy: Status: Chronic Comment: EF 45%. Stage I diastolic dysfunction Plan: Beta-blockers, ACEI, SGLT2 inhibitors. (3) ICD (implantable cardioverter-defibrillator) in place: Status: Chronic Comment: ICD Implant 2009 Plan: Continue to follow at the pacemaker clinic. (4) Mixed hyperlipidemia: Status: Chronic Plan: LDL 39 mg/dL. Decrease atorvastatin to 40 mg daily. (5) Essential hypertension: Status: Chronic Comment: CONTROLLED WITH MED Plan: Beta-blockers, ACEI, furosemide, nitrates. Blood pressure borderline. Decreaseisosorbide to 60 mg once daily. (6) Obesity (BMI 30-39.9): Status: Chronic Plan: Lose weight. Plan Details Follow Up: 6 Months Coding Level of Care Code Off vis,est,level 4 Diagnoses Atherosclerosis of coronary artery, angina presence unspecified, unspecified vessel or lesion type, unspecified whether alutiiq or transplanted heart I25.10 Coronary Disease-Associated Artery/Lesion type: unspecified vessel or lesion type [place] vs. transplanted heart: unspecified whether alutiiq or transplanted heart Associated angina: angina presence unspecified Ischemic cardiomyopathy I25.5 ICD (implantable cardioverter-defibrillator) in place Z95.810 Mixed hyperlipidemia E78.2 Essential hypertension I10 Obesity (BMI 30-39.9) E66.9 Coding Level of Care Code Off vis,est,level 4 Diagnoses Atherosclerosis of coronary artery, angina presence unspecified, unspecified vessel or lesion type, unspecified whether alutiiq or transplanted heart I25.10 Coronary Disease-Associated Artery/Lesion type: unspecified vessel or lesion type [place] vs. transplanted heart: unspecified whether alutiiq or transplanted heart Associated angina: angina presence unspecified Ischemic cardiomyopathy I25.5 ICD (implantable cardioverter-defibrillator) in place Z95.810 Mixed hyperlipidemia E78.2 Essential hypertension I10 Obesity (BMI 30-39.9) E66.9 Clinical Quality Measures Falls Risk Screening/Assistive Devices Have you fallen in the past year?: No Cardiac Ejection fraction %: 40 05/03/25 1424 <Electronically signed by Delilah Villagomez MD> Date _ Delilah Villagomez MD Cosigner Signature: Date (if applicable) CC: Dr. Speedy Boswell MD ~ [facility] Work Phone: 1(263) 952-571712-18-2024 [facility] Medical Records Department [address] [place] [address] History Physical Exam 11/18/2417 MR#: [id number] Acct: [id number] Name: ALBIN ISSA Rep #: [id number] : 1955 69 From: Ravi Holder MD PCP: Dr. Speedy Boswell MD Status:[facility] Location: [place] [address] HPI - General General Date of Service: 11/18/24 Chief Complaint: left kidney stones HPI Narrative ALBIN ISSA, is a 69 M who presents with left kidney stone. stone are non obstructive in lower pole, has pain off and on warned him that pain may not be from stones, he insist that the pain is from the stone and wants them treated, plan to do laser of stones. [facility] Medical History (Updated 11/05/24 @ 15:21 by Lili Dawson) Coronary atherosclerosis of bypass graft Wears hearing aid Wears glasses Wears contact lenses Wears partial dentures Diabetes Arthritis Anemia Back pain Injury of head and neck Difficulty swallowing Phantom pain after amputation of lower extremity Stuttering History of pain when walking History of edema History of echocardiogram History of stress test Cardiology follow-up encounter Lateral epicondylitis of left elbow Left elbow pain Over 65 years old COVID-19 Fracture, humerus Fall Cancer Depression Former smoker CPAP (continuous positive airway pressure) dependence Pacemaker TIA (transient ischemic attack) Esophageal foreign body Stroke-like symptoms Paresthesia of left upper extremity Renal calculi GERD (gastroesophageal reflux disease) Chest pain Mixed hyperlipidemia Essential hypertension Obesity (BMI 30-39.9) Surgical wound dehiscence Above knee amputation of right lower extremity Debility Lymphedema of right lower extremity Automatic implantable cardioverter-defibrillator in situ Chronic systolic congestive heart failure GERD (gastroesophageal reflux disease) Atherosclerotic heart disease of alutiiq coronary artery without angina pectoris Shortness of breath History of 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 Ischemic cardiomyopathy ( 10/30/23) Atherosclerosis of coronary artery bypass graft without angina pectoris Gastroenteritis SIRS (systemic inflammatory response syndrome) Morbid obesity with BMI of 40.0-44.9, adult Effects of radiation Acute lymphangitis of right lower extremity ICD (implantable cardioverter-defibrillator) in place ( 08/17/10) Lymphedema of Right Leg CAD (coronary artery disease) Chronic Systolic CHF - EF 45% GERD (gastroesophageal reflux disease) Home Medications ???Medication ???Instructions ???Recorded ???Last Taken ???Type aspirin 81 mg chewable tablet 81 mg PO QHS Heart health 06/09/17 06/10/24 History gabapentin 300 mg capsule 300 mg PO QHS Rls 09/21/20 06/10/24 History temazepam 15 mg capsule 15 mg PO QHS PRN Sleep 09/21/20 06/10/24 History trazodone 50 mg tablet 50 mg PO QHS sleep 03/22/21 06/10/24 History escitalopram oxalate 20 mg tablet 20 mg PO DAILY 08/20/22 06/11/24 History potassium chloride 20 mEq 40 meq (2 x 20 mEq) PO QDAY 08/09/23 06/10/24 Rx tablet,extended release supplement #180 tabs atorvastatin 80 mg tablet 80 mg PO QHS cholesterol #90 tabs 11/26/23 06/10/24 Rx carvedilol 25 mg tablet 25 mg PO BID heart #180 tabs 11/26/23 06/11/24 Rx isosorbide mononitrate 60 mg 60 mg PO BID blood pressure #180 11/26/23 06/11/24 Rx tablet,extended release 24 hr tabs ramipril 10 mg capsule 10 mg PO DAILY #90 caps 04/06/24 06/11/24 Rx multivitamin (Daily Multi-Vitamin 1 tab PO DAILY 05/27/24 06/06/24 History tablet) dapagliflozin propanediol 10 mg 10 mg PO DAILY #30 tabs 09/21/24 Unknown Rx tablet (Farxiga) pantoprazole 40 mg tablet,delayed 40 mg PO DAILY gerd #90 tabs 09/21/24 Unknown Rx release clopidogrel 75 mg tablet (Plavix) 75 mg PO DAILY blood clots #90 tabs 10/12/24 Unknown Rx furosemide 40 mg tablet 40 mg PO BID #180 tabs 10/19/24 Unknown Rx acetaminophen 500 mg tablet 1,000 mg PO Q8 PRN fever or pain 10/21/24 Unknown History desloratadine 5 mg tablet 5 mg PO DAILY PRN allergy symptoms 10/21/24 Unknown History finasteride 5 mg tablet 5 mg PO DAILY 10/21/24 Unknown History oxycodone-acetaminophen 5 mg-325 1 tab PO Q6H PRN pain 3 days #12 10/21/24 10/25/24 21:00 Rx mg tablet (Percocet) tabs Allergy/AdvReac Type Severity Reaction Status Date / Time No Known Allergies Allergy Verified 11/05/24 15:13 Family History Mother CAD (coronary artery disease) Father CVA (cerebral vascular accident) Myocardial infarction Brother CAD (coronary artery disease) Hx of CABG Brother CAD (coronary artery disease) Hx of CABG Other Family history of CVA Surgical History (Updated 11/05/24 @ 15:21 by Lili Dawson) History of implantable cardiac defibrillator (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 [facility]04-29-2024 History of Present illness Narrative* Kel Nielsen MD - 03/30/2024 2:00 PM EDT Images from the original note were not included. [facility] [address] [facility] [address] Dept: [phone] Dept Chief Complaint Patient presents with Follow-up USG left ankle injection Subjective History of Present Illness: Albin Issa is a 68 y.o. male who presents today for ultrasound guided injection of left ankle . He rates symptoms as a 3/10 at rest and a 5-6 /10 at worst. Imaging to date: X-ray May 2022 Prior targeted injections: Corticosteroid . Helpful.. Previous injection dates: May 2022, January 2023, August 2023 Fall risk assessment: Completed in the past 12 months Objective There were no vitals taken for this visit. Physical Exam: No sign of infection overlying injection site. External Notes No pertinent interval updates Labs No results found for: HGBA1C Lab [...] from the patient. Consent included possibility of bleeding,infection, hypoglycemia, hyperglycemia, increased pain, steroid flare, and permanent hypopigmentation and fat atrophy. Using real-time ultrasound I localized the subtalar joint. Sterile prep and freeze spray for analgesia. Using a 27-gauge 1 inch needle I injected the left subtalar joint after aspiration without withdraw with 0.5 cc of Celestone and 0.5 cc of 1% lidocaine. The patient tolerated the procedure well. Assessment Diagnosis Plan 1. Arthritis of left subtalar joint betamethasone acetate-betamethasone sodium phosphate (Celestone) injection 3 mg lidocaine (Xylocaine) 1 % injection 0.5 mL Plan Ultrasound-guided left ST CS injection today. Postinjection instructions reviewed. We discussed watching for any concerns around the injection site. She can use ice or Tylenol for pain or discomfort. Follow-up with a phone call in 2 weeks. Follow up if symptoms worsen or fail to improve. Kel Nielsen MD 03/30/2024 2:11 PM Please note that portions of this note may have been completed with voice recognition software. Documentation reviewed prior to signing but minor errors in workgroup leader may have occurred. documented in this [facility]04-29-2024 Instructions* Patient Instructions* Kel Nielsen MD - 03/30/2024 2:00 PM EDT Orthopaedics and Sports Medicine Patient [...] and increase warmth, If you notice any ofthese symptoms at the joint that last longer than 2 days or if you develop a fever, please call theoffice as soon as possible at [phone] documented in this [facility]02-06-2024 Hospital course Narrative* Rosio Douglass APRN-KEYSHA - 01/07/2024 8:06 AM EST Discharge Summary Name: Albin Issa Age: 68 y.o. Birthday: 1955 Admit Date: 01/06/2024 7:01 AM Discharge Date: 01/07/2024 Discharge Time: 0800 Discharge Unit: [facility] Admission Information Admitting Physician: David Ramirez MD Discharge Information Discharge Provider: Rosio Douglass CNP Problem List Active Hospital Problems Diagnosis Pacemaker lead malfunction Resolved Hospital Problems No resolved problems to display. Brief Summary of Hospital Course for Discharge Summary: Albin Issa is a 68 y.o. male with ICM s/p [place] DC ICD, CAD s/p [place] 2004, s/p CABG 2004, s/p right AKA amputation, HLD. He was evaluated in EP clinic on 11/21/2023 for consultation. He reported occasional dyspnea on exertion. 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 On 11/21/2023, he underwent a venogram revealing [...] (Oral) Resp 18 Ht 1.702 m (5' 7) Wt 133.4 kg (294 lb) SpO2 93% BMI 46.05 kg/m Constitutional: patient is awake, alert and in no distress today with a pleasant affect. Chest: lungs clear to auscultation Device implant site: Dressing is intact and no significant hematoma is noted Cardiovascular: Normal carotid pulses, the JVP is not elevated, regular rate and rhythm; S1 normal,S2 normal, and there are no murmurs, rub [...] s/p [place] DC ICD, CAD s/p [place] 2004, s/p CABG 2004, s/p right AKA amputation, HLD.He was evaluated in EP clinic on 11/21/2023 for consultation. He reported occasional dyspnea on exertion. 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 He underwent successful placement of additional RA lead. Device generator exchanged. Excellent lead parameters. IV Vancomycin is utilized because: Physician/LACE STRIPPER/PA or pharmacist documentation of increased MRSA rate, [...] No follow-up provider specified. [facility] Discharge instructions* Discharge Instr - Activity* SHEILA Hilton - 01/07/2024 7:56 AM EST [...] physician s office, not the Device Clinic * Discharge Instr - Diet* SHEILA Hilton - 01/07/2024 7:56 AM EST Diet: Cardiac 4gm NA Low sodium, low fat, low cholesterol, caffeine controlled. Sodium restricted to 4 grams. * Discharge Instr - Notify* Rosio Douglass, MEDICAL OFFICE ASSISTANT INSTRUCTOR-PANEL COVERER - 01/07/2024 7:56 AM EST Images from the original note were not included. Call the Device Clinic if you have: A shock from the ICD. If you have more than one shock in 24 hours, call 911 Dizziness, lightheadedness, or you pass out A very fast heartbeat or a heartbeat greater than 125 beats per minute for longer than 5 minutes atrest. Unusual shortness of breath Other signs that concern you If you have any of these signs and need medical help right away, call 911. When you are nauseated, you may feel weak and sweaty and notice a lot of saliva in your mouth. Nausea often leads to vomiting. Most of the time you do not need to worry about nausea and vomiting, butthey can be signs of other illnesses. The doctor has checked you carefully, but problems can develop later. If you notice any problems ornew symptoms, get medical treatment right away. Follow-up care is a scherer part of your treatment and safety. Be sure to make and go to all appointments, and call your doctor if you are having problems. It's also a good idea to know your test resultsand keep a list of the medicines you [...] Where can you learn more? Go to [email or web address]. * Discharge Instr - Wound Care* SHEILA Hilton - 01/07/2024 7:56 AM EST [...] skin during body movement. documented in this [facility] NoteIMPRESSION: Limited evaluation. No acute pulmonary finding. Cardiomegaly. RADIOLOGY 01-06-2024 History and physical note* SHEILA Hilton - 01/06/2024 7:13 AM EST Images from the original note were not included. Chief Complaint Dyspnea on exertion HPI Albin Issa is a 68 y.o. male with ICM s/p [employer] DC ICD, CAD s/p [place] 2004, s/p CABG 2004, s/p right AKA amputation, HLD. He was evaluated in EP clinic on 11/21/2023 for consultation. He reported occasional dyspnea on exertion. 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 On 11/21/2023, he underwent a venogram revealing [...] and impedance measurements are appropriate. AP 41%. ADMISSIONS EVALUATOR 7.4%. Device is programmed DDD at 60 bpm. Since last evaluation 09/10/2023, counters reveal no arrhythmia events. Since 11/10/2023, there have been 48 atrial noise events noted. 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 Isometrics completed, and able to reproduce noise on the atrial lead. The battery status at SMOKE CONTROL SUPERVISOR with voltage of 2.45V (JESSICA is 2.45V). Changes made to the device today: None. All findings given to Dr Ramirez and EP fellow. Patient follows at [facility]. Addendum: per order of Dr [...] (Oral) Resp 18 Ht 1.702 m (5' 7) Wt 133.4 kg (294 lb) SpO2 97% [...] and capping of existing lead. -Arrived in [facility] since 1899 -OK to proceed pending [...] as addended by me. David Ramirez MD01/06/2024 [facility] History and physical note* Rosio Douglass APRN-PANEL COVERER - 01/06/2024 7:13 AM EST Images from the original note were not included. Chief Complaint Dyspnea on exertion HPI Albin Issa is a 68 y.o. male with ICM s/p [place] DC ICD, CAD s/p [place] 2004, s/p CABG 2004, s/p right AKA amputation, HLD. He was evaluated in EP clinic on 11/21/2023 for consultation. He reported occasional dyspnea on exertion. 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 On 11/21/2023, he underwent a venogram revealing [...] history on file. PCP Speedy COCHRAN MD: [facility] Anticoagulation: none Previous antiarrythmic medications: none Prior Cardiac testing: STRESS TEST (OUTSIDE) (Final) 09/24/2023 4. Area of apical infarct. No reversible ischemia. 5. The gated Cardiolite study reports an LVEF of 46% ECHOCARDIOGRAM (OUTSIDE) 09/24/2023 DEVICE EVALUATION 11/21/2023 Full evaluation of the device shows that RA and RV capture and sensing thresholds and impedance measurements are appropriate. AP 41%. ADMISSIONS EVALUATOR 7.4%. Device is programmed DDD at 60 bpm. Since last evaluation 09/10/2023, counters reveal no arrhythmia events. Since 11/10/2023, there have been 48 atrial noise events noted. 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 Isometrics completed, and able to reproduce noise on the atrial lead. The battery status at SMOKE CONTROL SUPERVISOR with voltage of 2.45V (JESSICA is 2.45V). Changes made to the device today: None. All findings given to Dr Ramirez and EP fellow. Patient follows at [facility]. Addendum: per order of Dr [...] (Oral) Resp 18 Ht 1.702 m (5' 7) Wt 133.4 kg (294 lb) SpO2 97% [...] and capping of existing lead. -Arrived in [facility] since 190 -OK to proceed pending lab results Associated [...] certified nurse practitioner as addended by me. Daivd Ramirez MD01/06/2024 documented in this encounterAv[facility] History of Present illness Narrative* Kel Nielsen MD - 08/26/2023 3:15 PM EDT Images from the original note were not included. [facility] [address] [facility] [address] Dept: [phone] Dept Chief Complaint Patient presents with Follow-up [...] from the patient. Consent included possibility of bleeding,infection, hypoglycemia, hyperglycemia, increased pain, steroid flare, and [...] prior to signing but minor errors in workgroup leader may have occurred. documented in this [facility]09-25-2023 Instructions* Patient Instructions* Kel Nielsen MD - 08/26/2023 3:15 PM [...] and increase warmth, If you notice any ofthese symptoms at the joint that last longer than 2 days or if you develop a fever, please call theoffice as soon as possible at [phone] documented in this [facility]03-13-2023 History of Present illness Narrative* Kel Nielsen MD - 02/11/2023 3:20 PM EDT Images from the original note were not included. [facility] [address] [place] [address] Dept: [phone] Dept Chief Complaint Patient presents with Injection USG left subtalar joint Subjective History of Present Illness: Albin Issa is a 67 y.o. male who presents today for ultrasound guided injection of left subtalar. He rates symptoms as a 0/10 at rest and a 3/10 at worst. Imaging to date: X-ray May 2022 Prior targeted injections: Corticosteroid . Helpful.. Previous injection dates: May 2022 Fall risk assessment: Completed today. Have you had 2 or more falls in the last year? No Have you had a fall with injury in the last year? No Do you feel unsteady or worried about falling? Yes Objective Visit Vitals BP 116/73 Physical Exam: No sign of infection overlying [...] from the patient. Consent included possibility of bleeding,infection, hypoglycemia, hyperglycemia, increased pain, steroid flare, and [...] sodium phosphate (Celestone) injection 3 mg Plan USG CSI of the subtalar joint today and post injection instructions discussed. Use ice or tylenol for pain. Call in 2 weeks for an update. Follow up if symptoms worsen or fail to improve. Kel Nielsen MD 02/11/2023 3:39 PM Please note that portions of this note may have been completed with voice recognition software. Documentation reviewed prior to signing but minor errors in workgroup leader may have occurred. documented in this [facility]03-13-2023 Instructions* Patient Instructions* Kel Nielsen MD - 02/11/2023 3:20 PM EDT Orthopaedics and Sports Medicine Patient [...] and increase warmth, If you notice any ofthese symptoms at the joint that last longer than 2 days or if you develop a fever, please call theoffice as soon as possible at [phone] documented in this [facility]07-01-2021 History of Present illness Narrative* Kenan Jacobsen RN - 06/01/2021 1:16 AM EDT Pt discharged to [place] manner via Jai Lau on a cot. Pt verified to have all belongings and IV removed. * Agnieszka Longoria RCP - 05/31/2021 10:52 PM EDT [facility] Respiratory Care Department Progress Note Patient was seen in attempts to fulfill CPAP/BiPAP/AutoPAP order. Patient refused PAP therapy/studyat this time. Patient was educated on medical [...] Respiratory in the care of this patient, * Agnieszka Longoria RCP - 05/30/2021 9:15 PM EDT [facility] Respiratory Care Department Progress Note Patient was seen in attempts to fulfill CPAP/BiPAP/AutoPAP order. Patient refused PAP therapy/studyat this time. Patient was educated on medical [...] Respiratory in the care of this patient, * Mary Anne Husain RN - 05/30/2021 2:36 PM EDT Patient had a large bowel movement with mag citrate and suppositories. Patient wanted to hold off on the enema for now. * Kacy Soto DTR - 05/30/2021 8:36 AM EDT Nutrition update completed. Chart reviewed. Patient to be monitored and followed by the diet digital field service technician. * Sd Moreno PA-C - 05/29/2021 4:05 PM EDT Spoke to patient regarding the post operative plan. Discharge instructions and follow up were explained. We discussed the natural course of injury and expectations moving forward. Patient voiced their understanding and is agreeable with the current plan. All questions were answered. Patient was advised to contact our office with any questions or concerns. Sd Moreno PA-C Orthopedic Surgery * Arabella Dai PTA - 05/29/2021 3:12 PM EDT Physical Therapy Facility/Department: [facility] TELEMETRY Daily Treatment Note NAME: Albin Issa [...] History of kidney stones, Hypertension, TARAN on CPAP,Pacemaker, Radiation, Restless leg syndrome, Rotator cuff injury, [...] with encouragement. Pt initially was declining to getOOB, then agreed. General Comment Comments: Order clarified [...] LLE x 10 reps G-Code OutComes Score [facility] Score [facility] Inpatient Mobility Raw Score : 8 (05/29/211513) [facility] Inpatient T-Scale Score : 28.52 (05/29/211513) Mobility [...] policy used during session* Arabella Dai PTA * Rafy Gloria MD - 05/29/2021 12:00 PM EDT Ortho to bedside to discuss plans moving [...] off at this time. Please page resident energy conservation director with any questions or concerns. Rafy Glorai MD Orthopaedic Surgery PGY-1 *[phone] * Hamilton Mckinnon APRN - NP - 05/28/2021 6:58 AM EDT Images from the original note were not included. Daily Trauma Progress Note Nurse Practitioner 05/28/2021 6:58 AM Admit Date: 05/23/2021 Post Trauma Day 5 Fall SH HISTORY OF TRAUMATIC EVENT: 66 y.o. male status post fall from standing. The incident happened around afternoon on 05/23/21 at home. When the event happened the patient was bending down to rock picker a delivery box when his Rolatorgot away from him. He ended up riding the Rolator down the step ramp off his front porch and nose dived over the handlebars. He did not hit his head, his nose brushed the ground. INJURIES: Left humerus fracture PROCEDURES: ORIF Left [...] mg 40 mg Oral BID MARISELA Balderrama SALES INCENTIVE ANALYST 40 mg at 05/27/211753 enoxaparin (LOVENOX) injection 30 mg 30 mg Subcutaneous BID MARISELA Croft CNP 30 mg at 05/27/212008 atorvastatin (LIPITOR) tablet 40 mg 40 mg Oral Nightly Sd Josh, PA-C 40 mg at 05/27/212007 buPROPion (WELLBUTRIN SR) extended release tablet 150 mg 150 mg Oral BID MIKA Del Cid-C 150 mgat 05/27/212008 carvedilol (COREG) tablet 3.125 mg 3.125 mg Oral BID WC MIKA Del Cid-C 3.125 mg at 05/27/21 1754 clopidogrel (PLAVIX) tablet 75 mg 75 mg [...] Daily Sd Moreno PA-C 10 mg at 05/27/21913 [Held by provider] meloxicam (MOBIC) tablet 15 mg 15 mg Oral Daily MIKA Del Cid-Sen niacin (NIASPAN) extended release tablet 1,000 mg 1,000 mg Oral Nightly Sd Moreno PA-C 1,000 mg at 05/27/212008 potassium chloride (KLOR-CON M) extended release tablet 40 mEq 40 mEq Oral Daily MIKA Del Cid-C 40 mEq at 05/27/21913 ramipril (ALTACE) capsule 2.5 mg 2.5 mg Oral Daily Sd Moreno PA-C 2.5 mg at 05/27/21913 ranolazine (RANEXA) extended release tablet 1,000 mg 1,000 mg Oral BID Sd Moreno PA-C 1,000 mgat 05/27/212007 sodium chloride flush 0.9 % injection [...] Daily JANICE Del CidC 81 mg at 05/27/21 0918 senna (SENOKOT) [...] Renny Biswas MD 0.5 mg at 05/25/21 6286 ARE THERE PERTINENT UPDATES TO PAST,FAMILY, OR [...] Date 05/28/21 0000 - 05/28/21 2359 Shift 2395-1220 3901-2110 2449-3255 24 Hour Total INTAKE P.O. 200 200 Shift Total(mL/kg) 200(1.6) 200(1.6) OUTPUT Urine(mL/kg/hr) 800 800 Shift Total(mL/kg) 800(6.3) 800(6.3) Weight (kg) 126.1 126.1 126.1 126.1 Last BM: TECHNOLOGY ADMINISTRATOR Diet: Reg CVP: No Chest Tubes: R: [...] Radiology ACCESSION EXAM DATE/TIME PROCEDURE ORDERING PROVIDER [id number] 05/24/2021 17:43 EDT CR Humerus 2+ Views [id number] -SD MORENO CPT code 14876 Reason For Exam (CR Humerus 2+ Views Left) s/p ORIF left distal humeral shaft fx Report Left humerus CLINICAL INDICATION: Open reduction and internal fixation COMPARISON: Left elbow 05/24/2021 AP and lateral views of the left humerus were obtained. Metallic platehas been placed along the lateral aspect of [...] Radiology ACCESSION EXAM DATE/TIME PROCEDURE ORDERING PROVIDER [id number] 05/24/2021 05:59 EDT CR Elbow 3+ Views Left MD FONTANA ALEX CPT code 54819 Reason For Exam (CR Elbow 3+ Views [...] Radiology ACCESSION EXAM DATE/TIME PROCEDURE ORDERING PROVIDER [id number] 05/24/2021 05:59 EDT CR Chest 1 View Frontal MD FONTANA ALEX CPT code 86092 Reason For Exam (CR Chest 1 View [...] Date and Time: 05/24/2021 8:49 am Signed by : MD HOPKINS LAURA Transcribed Date and Time: [...] Hardy MD - 05/29/2021 2:43 PM EDT ~~~~~~~~~~~~~~~~~~~~~~~~~~~~~~~~~~~~~~~~~~~~~~~~~~~~~~~~~~~~~ ATTENDING ADDENDUM CC: Fall Active Diagnoses/Problems this Admission: Hospital Problems Last Modified POA Closed fracture of lower epiphysis of humerus 05/24/2021 Yes Left supracondylar humerus fracture, closed, initial encounter 05/24/2021 Yes Ischemic cardiomyopathy 05/25/2021 Yes Acute traumatic pain 05/25/2021 Yes Chronic systolic congestive heart failure (HCC) 05/29/2021 Yes I personally supervised the MARISELA/ROMEL in [...] MD Division of Trauma Department of Surgery [facility] Pager: [phone] ~~~~~~~~~~~~~~~~~~~~~~~~~~~~~~~~~~~~~~~~~~~~~~~~~~~~~~~~~~~~~ This note may have been dictated using [employer] Practice Edition 2.6 and/or DragonRAD Voice Recognition Feature. The document was proofread; however, unrecognized voice recognition workgroup leader errors may be present. * Ruma Ahuja, TECHNOLOGY ADMINISTRATOR - 05/27/2021 12:30 PM EDT Physical Therapy Facility/Department: [facility] TELEMETRY Daily Treatment Note NAME: Albin Issa : 1955 Date of Service: 05/27/2021 Discharge Recommendations: IP Rehab PT Equipment Recommendations Other: TBD at next level of care Assessment Body structures, Functions, Activity limitations: Decreased functional mobility ;Decreased ADL status;Decreased endurance;Decreased strength;Decreased balance Assessment: Pt does like the pyramid cane or hemiwalker, states they are a trap. Pt still wanting to use his bilateral [...] History of kidney stones, Hypertension, TARAN on CPAP,Pacemaker, Radiation, Restless leg syndrome, Rotator cuff injury, [...] decreased bilat hip extension Gait Deviations: Slow Khoi;Decreased step length;Decreased step height Distance: 4 ft forward and backwards, turned to recliner Stairs/Curb Stairs?: No Balance Comments: Sitting EOB pt needed min assist to don liner and sock of prosthesis. Standing, mod assist for balance while pt weight shifted his RLE into prosthesis. Worked on standing posture and placing RUE industrial technologist on center handle of hemiwalker and keeping LUE tucked to abdomen. Exercises Hip Flexion: LLE x 10 reps Knee Long Arc Quad: LLE x 10 reps Ankle Pumps: LLE x 10 reps Comments: all while seated in recliner AM-PAC Score [facility] Inpatient Mobility Raw Score : 8 (05/27/21 [facility]) [facility] Inpatient T-Scale Score : 28.52 (05/27/21 [facility]) Mobility Inpatient CMS 0-100% Score: 86.62 (05/27/21 [facility]) Mobility Inpatient CMS G-Code Modifier : CM (05/27/21 [facility]) Goals Short term goals Time Frame for [...] facility policy during session* Ruma Ahuja PTA * Hamilton Mckinnon APRN - NP - 05/27/2021 6:26 AM EDT Images from the original note were not included. Daily Trauma Progress Note Nurse Practitioner 05/27/2021 6:26 AM Admit Date: 05/23/2021 Post Trauma Day 4 Fall SH HISTORY OF TRAUMATIC EVENT: 66 y.o. male status post fall from standing. The incident happened around afternoon on 05/23/21 at home. When the event happened the patient was bending down to rock picker a delivery box when his Rolatorgot away from him. He ended up riding the Rolator down the step ramp off his front porch and nose dived over the handlebars. He did not hit his head, his nose brushed the ground. INJURIES: Left humerus fracture PROCEDURES: ORIF Left [...] BID MARISELA Balderrama NP 40 mg at 05/26/21 1611 enoxaparin (LOVENOX) injection 30 mg 30 mg Subcutaneous BID MARISELA Croft CNP 30 mg at 05/26/21 2213 atorvastatin (LIPITOR) tablet 40 mg 40 mg Oral Nightly Sd Moreno PA-C 40 mg at 05/26/21 2202 buPROPion (WELLBUTRIN SR) extended release tablet 150 mg 150 mg Oral BID Sd Mroeno PA-C 150 mgat 05/26/21 2209 carvedilol (COREG) tablet 3.125 mg 3.125 mg [...] Nightly JANICE Del CidC 300 mg at 05/26/212200 isosorbide mononitrate (IMDUR) extended release tablet 60 mg 60 mg Oral BID JANICE Del CidC 60 mg at 05/26/212201 cetirizine (ZYRTEC) tablet 10 mg 10 mg Oral Daily JANICE Del CidC 10 mg at 05/26/21 1021 [Held by provider] meloxicam (MOBIC) tablet 15 mg 15 mg Oral Daily Sd Moreno PA-C niacin (NIASPAN) extended release tablet 1,000 mg 1,000 mg Oral Nightly JANICE Del CidC 1,000 mg at 05/26/21 2214 potassium chloride (KLOR-CON M) extended release tablet 40 mEq 40 mEq Oral Daily JNAICE Del CidC 40 mEq at 05/26/21 0952 ramipril (ALTACE) capsule 2.5 mg 2.5 mg Oral Daily Sd Moreno PA-C 2.5 mg at 05/26/21 102 ranolazine (RANEXA) extended release tablet 1,000 mg 1,000 mg Oral BID JANICE Del CidC 1,000 mgat 05/26/212201 sodium chloride flush 0.9 % injection 5-40 mL 5-40 mL Intravenous 2 times per day JANICE Del CidC 5 mL at 05/26/21 1002 sodium chloride flush 0.9 % injection 5-40 mL 5-40 mL Intravenous PRN dS Moreno PA-C 0.9 % sodium chloride infusion 25 mL Intravenous PRN Sd Moreno PA-C acetaminophen (TYLENOL) tablet 1,000 mg 1,000 mg Oral 3 times per day JANICE Del CidC 1,000 mg at 05/27/21 0544 oxyCODONE (ROXICODONE) immediate release tablet 5 mg 5 mg Oral Q4H PRN Sd Moreno PA-C Or oxyCODONE (ROXICODONE) immediate release tablet 10 mg 10 mg Oral Q4H PRN JANICE Del CidC 10 mg at 05/26/21 1611 ondansetron (ZOFRAN) injection 4 mg 4 mg Intravenous Q6H PRN Sd Moreno PA-C aspirin EC tablet 81 mg 81 mg Oral Daily Sd Moreno PA-C 81 mg at 05/26/21 0951 senna (SENOKOT) tablet 8.6 mg 1 tablet Oral Nightly Sd Moreno PA-C 8.6 mg at 05/26/212201 polyethylene glycol (GLYCOLAX) packet 17 g 17 g Oral Daily Sd Moreno PA-C 17 g at 05/26/21 0951 docusate sodium (COLACE) capsule 100 mg 100 mg Oral BID Sd Moreno PA-C 100 mg at 05/26/212201 LORazepam (ATIVAN) tablet 0.5 mg 0.5 mg [...] Date 05/27/21 0000 - 05/27/21 2359 Shift 4174-4637 2727-9191 3240-2739 24 Hour Total INTAKE P.O. 350 350 Shift Total(mL/kg) 350(2.8) 350(2.8) OUTPUT Urine(mL/kg/hr) 750 750 Shift Total(mL/kg) 750(5.9) 750(5.9) Weight (kg) 126.1 126.1 126.1 126.1 Last BM: TECHNOLOGY ADMINISTRATOR Diet: Reg CVP: No Chest Tubes: R: [...] Radiology ACCESSION EXAM DATE/TIME PROCEDURE ORDERING PROVIDER [id number] 05/24/2021 17:43 EDT CR Humerus 2+ Views [id number] -SD MORENO CPT code 55435 Reason For Exam (CR Humerus 2+ Views Left) s/p ORIF left distal humeral shaft fx Report Left humerus CLINICAL INDICATION: Open reduction and internal fixation COMPARISON: Left elbow 05/24/2021 AP and lateral views of the left humerus were obtained. Metallic platehas been placed along the lateral aspect of [...] Radiology ACCESSION EXAM DATE/TIME PROCEDURE ORDERING PROVIDER [id number] 05/24/2021 05:59 EDT CR Elbow 3+ Views Left MD FONTANA ALEX CPT code 33046 Reason For Exam (CR Elbow 3+ Views [...] Radiology ACCESSION EXAM DATE/TIME PROCEDURE ORDERING PROVIDER [id number] 05/24/2021 05:59 EDT CR Chest 1 View Frontal MD FONTANA ALEX CPT code 07669 Reason For Exam (CR Chest 1 View [...] Date and Time: 05/24/2021 8:49 am Signed by : MD HOPKINS LAURA Transcribed Date and Time: [...] Hardy MD - 05/27/2021 11:33 AM EDT ~~~~~~~~~~~~~~~~~~~~~~~~~~~~~~~~~~~~~~~~~~~~~~~~~~~~~~~~~~~~~ ATTENDING ADDENDUM CC: left arm pain Active Diagnoses/Problems this Admission: Hospital Problems Last Modified POA Closed fracture of lower epiphysis of humerus 05/24/2021 Yes Left supracondylar humerus fracture, closed, initial encounter 05/24/2021 Yes Ischemic cardiomyopathy 05/25/2021 Yes Acute traumatic pain 05/25/2021 Yes I personally supervised the MEDICAL OFFICE ASSISTANT INSTRUCTOR/ROMEL in the evaluation and development of a [...] MD Division of Trauma Department of Surgery [facility] Pager: [phone] ~~~~~~~~~~~~~~~~~~~~~~~~~~~~~~~~~~~~~~~~~~~~~~~~~~~~~~~~~~~~~ This note may have been dictated using SkyWire Medical Practice Edition 2.6 and/or DragonRAD Voice Recognition Feature. The document was proofread; however, unrecognized voice recognition workgroup leader errors may be present. * Arabella Dai, TECHNOLOGY ADMINISTRATOR - 05/26/2021 1:30 PM EDT Physical Therapy Facility/Department: [facility] TELEMETRY Daily Treatment Note NAME: Albin Issa [...] History of kidney stones, Hypertension, TARAN on CPAP,Pacemaker, Radiation, Restless leg syndrome, Rotator cuff injury, [...] pyramid cane, NWB LUE in sling and withRLE prosthesis on) Ambulation Ambulation?: No Stairs/Curb Stairs?: [...] light within reach, Gait belt, Nurse notified, Allfall risk precautions in place, Left in bed Restraints Initially in place: No Therapy Time Individual Concurrent Group Co-treatment Time In 1205 Time Out 1230 Minutes 25 Timed Code Treatment Minutes: (2FA) *PPE per facility policy used during session* Arabella Dai PTA * Sd Moreno PA-C - 05/26/2021 9:45 AM EDT Spoke to patient regarding the post operative plan. Discharge instructions and follow up were explained. We discussed the natural course of injury and expectations moving forward. Patient voiced their understanding and is agreeable with the current plan. All questions were answered. Patient was advised to contact our office with any questions or concerns. Sd Moreno PA-C Orthopedic Surgery * Rick Leyva OTA - 05/26/2021 9:14 AM EDT Occupational Therapy Facility/Department: [facility] TELEMETRY Daily Treatment Note NAME: Albin Issa [...] History of kidney stones, Hypertension, TARAN on CPAP,Pacemaker, Radiation, Restless leg syndrome, Rotator cuff injury, [...] for rehabilitation services?: Yes Additional Pertinent Hx: Lizandro BARRIENTOS Response to previous treatment: Patient with no [...] able to continue with treatment;Nurse/Physician notified;Nurse called toadminister meds Vital Signs Patient Currently in Pain: [...] 47 Minutes (ther act-1, selfcare-2) PARISH Teran * Hamilton Mckinnon APRN - SALES INCENTIVE ANALYST - 05/26/2021 6:56 AM EDT Images from the original note were not included. Daily Trauma Progress Note Nurse Practitioner 05/26/2021 6:57 AM Admit Date: 05/23/2021 Post Trauma Day 3 Fall SH HISTORY OF TRAUMATIC EVENT: 66 y.o. male status post fall from standing. The incident happened around afternoon on 05/23/21 at home. When the event happened the patient was bending down to rock picker a delivery box when his Rolatorgot away from him. He ended up riding the Rolator down the step ramp off his front porch and nose dived over the handlebars. He did not hit his head, his nose brushed the ground. INJURIES: Left humerus fracture PROCEDURES: ORIF Left [...] mg Oral BID MIKA Del Cid-C 150 mgat 05/25/212112 carvedilol (COREG) tablet 3.125 mg 3.125 mg Oral BID Sd Moreno PA-C 3.125 mg at 05/25/21 1743 clopidogrel (PLAVIX) tablet 75 mg 75 mg Oral Daily Sd Moreno PA-C 75 mg at 05/25/21 0907 escitalopram (LEXAPRO) tablet 20 mg 20 mg Oral Daily Sd Moreno, PA-C 20 mg at 05/25/21 0755 furosemide (LASIX) tablet 80 mg 80 mg Oral Nightly Sdosman Moreno PA-C 80 mg at 05/25/212099 gabapentin (NEURONTIN) capsule 300 mg 300 mg Oral Nightly Sd Moreno PA-C 300 mg at 05/25/21 2100 isosorbide mononitrate (IMDUR) extended release tablet 60 mg 60 mg Oral BID Sd Moreno PA-C 60 mg at 05/25/212099 cetirizine (ZYRTEC) tablet 10 mg 10 mg Oral Daily JANICE Del CidC 10 mg at 05/25/21 075 [Held by provider] meloxicam (MOBIC) tablet 15 mg 15 mg Oral Daily Sd Moreno PA-C niacin (NIASPAN) extended release tablet 1,000 mg 1,000 mg Oral Nightly JANICE Del CidC 1,000 mg at 05/25/212100 potassium chloride (KLOR-CON M) extended release tablet 40 mEq 40 mEq Oral Daily JANICE Del CidC 40 mEq at 05/25/21 075 ramipril (ALTACE) capsule 2.5 mg 2.5 mg Oral Daily Sd Moreno PA-C 2.5 mg at 05/25/21 09 ranolazine (RANEXA) extended release tablet 1,000 mg 1,000 mg Oral BID JANICE Del CidC 1,000 mgat 05/25/212099 sodium chloride flush 0.9 % injection 5-40 mL 5-40 mL Intravenous 2 times per day JANICE Del CidC 10 mL at 05/25/21 211 sodium chloride flush 0.9 % injection 5-40 [...] Renny Biswas MD 0.5 mg at 05/25/21 8079 ARE THERE PERTINENT UPDATES TO PAST,FAMILY, OR [...] Date 05/26/21 0000 - 05/26/21 2359 Shift 7149-4474 6399-8563 6121-6505 24 Hour Total INTAKE Shift Total(mL/kg) OUTPUT Urine(mL/kg/hr) 800 800 Shift Total(mL/kg) 800(6.3) 800(6.3) Weight (kg) 126.1 126.1 126.1 126.1 Last BM: TECHNOLOGY ADMINISTRATOR Diet: Reg CVP: No Chest Tubes: R: [...] Radiology ACCESSION EXAM DATE/TIME PROCEDURE ORDERING PROVIDER [id number] 05/24/2021 17:43 EDT CR Humerus 2+ Views [id number] -SD MORENO CPT code 39003 Reason For Exam (CR Humerus 2+ Views Left) s/p ORIF left distal humeral shaft fx Report Left humerus CLINICAL INDICATION: Open reduction and internal fixation COMPARISON: Left elbow 05/24/2021 AP and lateral views of the left humerus were obtained. Metallic platehas been placed along the lateral aspect of [...] Result Date: 05/24/2021 [id number] Radiology ACCESSION EXAM DATE/TIME PROCEDURE ORDERING PROVIDER [id number] 05/24/2021 05:59 EDT CR Elbow 3+ Views Left MD FONTANA ALEX CPT code 68623 Reason For Exam (CR Elbow 3+ Views [...] Result Date: 05/24/2021 [id number] Diagnostic Radiology ACCESSION EXAM DATE/TIME PROCEDURE ORDERING PROVIDER [id number] 05/24/2021 05:59 EDT CR Chest 1 View Frontal MD FONTANA ALEX CPT code 76078 Reason For Exam (CR Chest 1 View [...] Date and Time: 05/24/2021 8:49 am Signed by : MD HOPKINS LAURA Transcribed Date and Time: [...] Hardy MD - 05/26/2021 12:59 PM EDT ~~~~~~~~~~~~~~~~~~~~~~~~~~~~~~~~~~~~~~~~~~~~~~~~~~~~~~~~~~~~~ ATTENDING ADDENDUM CC: left arm pain Active Diagnoses/Problems this Admission: Hospital Problems Last Modified POA Closed fracture of lower epiphysis of humerus 05/24/2021 Yes Left supracondylar humerus fracture, closed, initial encounter 05/24/2021 Yes Ischemic cardiomyopathy 05/25/2021 Yes Acute traumatic pain 05/25/2021 Yes I personally supervised the MEDICAL OFFICE ASSISTANT INSTRUCTOR/PA-C in the evaluation and development of a [...] MD Division of Trauma Department of Surgery [facility] Pager: [phone] ~~~~~~~~~~~~~~~~~~~~~~~~~~~~~~~~~~~~~~~~~~~~~~~~~~~~~~~~~~~~~ This note may have been dictated using SkyWire Medical Practice Edition 2.6 and/or DragonRAD Voice Recognition Feature. The document was proofread; however, unrecognized voice recognition workgroup leader errors may be present. * Carol Ascencio MD - 05/26/2021 6:34 AM EDT Images from the original note were not included. [facility] H[facility] TELEMETRY [address] [facility] [address] Dept: [phone] Loc: [phone] Orthopedic Progress Note Name: Albin Issa Date:05/26/2021 Attending:Roni Figueroa MD Subjective Pain controlled. No issues overnight. Had questions about being able to use platform walker. Deniesany new numbness and tingling. Reports that the [...] K 4.0 4.5 CL 109* 109* CO2 23 23 BUN 15 15 CREATININE 1.02 1.13 CALCIUM 9.3 9.4 PHOS 2.9 1.8* Recent Labs 05/24/21 0357 INR 1.0 No results for input(s): SEDRATE, [...] Leo MD PGY-4 05/26/21 6:37 AM EDT * Avni Jones - 05/25/2021 11:35 AM EDT Occupational Therapy Occupational Therapy Initial Assessment Date: 05/25/2021 Patient Name: Albin Issa : 1955 Date of Service: 05/25/2021 OT wearing surgical mask and eye protection throughout entire session Discharge Recommendations: IP Rehab Assessment Performance deficits / Impairments: Decreased functional mobility ;Decreased endurance;Decreased ADL status;Decreased sensation;Decreased ROM;Decreased balance;Decreased strength;Decreased high-levelIADLs Assessment: Deficits listed above. Pt mod assist to don prosthesis and L shoe, would be max assist for general LB dressing and mod assist for most ADLs. Pt requires mod assist x2 for bed mobility, transfers and ambulation. Pt requires additional verbal cues to maintain NWB precautions on LUE duringactivity. Pt persistent on using UPwalker at home [...] History of kidney stones, Hypertension, TARAN on CPAP,Pacemaker, Radiation, Restless leg syndrome, Rotator cuff injury, [...] Independent (with lift chair) Mode of Transportation: [facility] Occupation: Retired Additional Comments: Patient states his [...] R prosthesis and L shoe while EOB; estimatemax assist for general LB dressing. Based on [...] distally LUE Strength LUE Strength Comment: 3/5 industrial technologist RUE Strength RUE Strength Comment: 3-/5 shoulder, 4/5 industrial technologist Plan Plan Times per week: 5 Plan weeks: 4 Current Treatment Recommendations: Strengthening, Gait Training, Patient/Caregiver Education & Training, Equipment Evaluation, Education, & procurement, ROM, Balance Training, Functional Mobility Training, Endurance Training, Safety Education & Training, Self-Care / ADL, Pain Management, Stair training OutComes Score -[facility] Daily Activity Inpatient How much help for [...] How much help for eating meals?: None [facility] Inpatient Daily Activity Raw Score: 16 [facility] Inpatient ADL T-Scale Score : 35.96 ADL Inpatient CMS 0-100% Score: 53.32 ADL Inpatient [facility] G-Code Modifier : CK Goals Short term [...] Plan [facility]. Pt requires skill of 2 therapists for safety and positioning. Avni Jones, S/OT * Maria L Jeffers, PT - 05/25/2021 11:07 AM EDT Physical Therapy Facility/Department: [facility] TELEMETRY Initial Assessment NAME: Albin Issa : [...] History of kidney stones, Hypertension, TARAN on CPAP,Pacemaker, Radiation, Restless leg syndrome, Rotator cuff injury, [...] Subjective: Patient lying in bed upon arrival, occupational therapist's assistant finishing assessing vitals. Patient pleasant and agreeable [...] UPwalker) Transfer Assistance: Independent Mode of Transportation: [facility] Occupation: Retired Additional Comments: Patient states his [...] decreased bilat hip extension Gait Deviations: Slow Khoi;Increased ELKE;Decreased step length Distance: 8 feet Comments: RLE prosthesis donned. Patient leaning heavily through hemiwalker with decreased bilat LEstep length. Required mod A x2 for stability. [...] Initially in place: No G-Code OutComes Score AM-[facility] Score [facility] Inpatient Mobility Raw Score : 8 (05/25/21 1107) [facility] Inpatient T-Scale Score : 28.52 (05/25/21 1107) Mobility Inpatient CMS 0-100% Score: 86.62 (05/25/21 1107) Mobility Inpatient [facility] G-Code Modifier : CM (05/25/21 110) Goals Short term goals Time Frame for Short term goals: 2 weeks Short term goal 1: Perform bed mobility with SBA Short term goal 2: Perform transfers with min A Short term goal 3: Ambulate 30 feet using hemiwalker with min A Patient Goals Patient goals : To go home Therapy Time Individual Concurrent Group Co-treatment Time In 0970 0954 (Co-tx needed for safety) Time Out 1027 1027 Minutes 33 33 Timed Code Treatment Minutes: 9 Minutes (FA x1) Maria L Jeffers PT PT wore kN95 mask, goggles, and gloves throughout entire session with patient. Patient s Physical Therapy Plan of Care supervision is transferred to [facility] Rehab Department Physical Therapist. * Kacy Soto DTR - 05/25/2021 8:40 AM EDT Nutrition rescreen completed. Chart reviewed. Patient to be monitored and followed by the diet digital field service technician. * Stephanie Ying APRN - KEYSHA - 05/25/2021 6:23 AM EDT Images from the original note were not included. Daily Trauma Progress Note Nurse Practitioner 05/25/2021 6:23 AM Admit Date: 05/23/2021 Post Trauma Day 2 Fall SH HISTORY OF TRAUMATIC EVENT: 66 y.o. male status post fall from standing. The incident happened around afternoon on 05/23/21 at home. When the event happened the patient was bending down to rock picker a delivery box when his Rolatorgot away from him. He ended up riding the Rolator down the step ramp off his front porch and nose dived over the handlebars. He did not hit his head, his nose brushed the ground. INJURIES: Left humerus fracture PROCEDURES: ORIF Left [...] Nightly Sd Moreno PA-C 40 mg at 05/24/212204 buPROPion (WELLBUTRIN SR) extended release tablet 150 mg 150 mg Oral BID JANICE Del CidC 150 mgat 05/24/212204 carvedilol (COREG) tablet 3.125 mg 3.125 mg Oral BID WC Sd Moreno PA-C 3.125 mg at 05/24/21930 [Held by provider] clopidogrel (PLAVIX) tablet 75 mg 75 mg Oral Daily Sd Moreno PA-C escitalopram (LEXAPRO) tablet 20 mg 20 mg Oral Daily Sd Moreno PA-C 20 mg at 05/24/21930 [Held by provider] [...] Daily JANICE Del CidC 2.5 mg at 05/24/21940 ranolazine (RANEXA) extended release tablet 1,000 mg 1,000 mg Oral BID JANICE Del CidC 1,000 mgat 05/24/212203 sodium chloride flush 0.9 % injection 5-40 mL 5-40 mL Intravenous 2 times per day Sd Moreno PA-C 10 mL at 05/24/212204 sodium chloride flush 0.9 % injection 5-40 mL 5-40 mL Intravenous PRN MIKA Del Cid-C 0.9 % sodium chloride infusion 25 mL Intravenous PRN Sd Moreno PA-C lactated ringers infusion Intravenous Continuous MIKA Del Cid-C 75 mL/hr at 05/24/21 0305 New Bag at 05/24/21 0305 acetaminophen (TYLENOL) tablet 1,000 mg 1,000 mg Oral 3 times per day Sd Moreno PA-C 1,000 mg at 05/24/212204 oxyCODONE (ROXICODONE) immediate release tablet 5 mg 5 mg Oral Q4H PRN Sd Moreno PA-C Or oxyCODONE (ROXICODONE) immediate release tablet 10 mg 10 mg Oral Q4H PRN MIKA Del Cid-C 10 mg at 05/24/212204 HYDROmorphone (DILAUDID) injection 0.25 mg 0.25 mg Intravenous Q3H PRN MIKA Del Cid-C Or HYDROmorphone (DILAUDID) injection 0.5 mg 0.5 mg Intravenous Q3H PRN Sd Moreno, MIKA-C ondansetron (ZOFRAN) injection 4 mg 4 mg Intravenous Q6H PRN MIKA Del Cid-C aspirin EC tablet 81 mg 81 mg Oral Daily MIKA eDl Cid-C senna (SENOKOT) tablet 8.6 mg 1 tablet Oral Nightly MIKA Del Cid-C 8.6 mg at 05/24/212204 polyethylene glycol (GLYCOLAX) packet 17 g 17 g Oral Daily JANICE Del CidC docusate sodium (COLACE) capsule 100 mg 100 mg Oral BID MIKA Del Cid-C 100 mg at 05/24/212203 ceFAZolin (ANCEF) 3,000 mg in dextrose 5 % 100 mL IVPB 3,000 mg Intravenous Q8H MKIA Del Cid-CStopped at 05/25/21 0255 LORazepam (ATIVAN) tablet 0.5 [...] Temporal 63 18 97 % Last BM: TECHNOLOGY ADMINISTRATOR Diet: Reg CVP: No Chest Tubes: R: [...] Radiology ACCESSION EXAM DATE/TIME PROCEDURE ORDERING PROVIDER [id number] 05/24/2021 17:43 EDT CR Humerus 2+ Views [id number] NORWOOD CPT code 87337 Reason For Exam (CR Humerus 2+ Views Left) s/p ORIF left distal humeral shaft fx Report Left humerus CLINICAL INDICATION: Open reduction and internal fixation COMPARISON: Left elbow 05/24/2021 AP and lateral views of the left humerus were obtained. Metallic platehas been placed along the lateral aspect of [...] Radiology ACCESSION EXAM DATE/TIME PROCEDURE ORDERING PROVIDER [id number] 05/24/2021 05:59 EDT CR Elbow 3+ Views Left MD FONTANA ALEX CPT code 42091 Reason For Exam (CR Elbow 3+ Views [...] Result Date: 05/24/2021 Patient Name: ALBIN ISSA [facility]#: [id number] Diagnostic Radiology ACCESSION EXAM DATE/TIME PROCEDURE ORDERING PROVIDER [id number] 05/24/2021 05:59 EDT CR Chest 1 View Frontal MD FONTANA ALEX CPT code 05538 Reason For Exam (CR Chest 1 View [...] Date and Time: 05/24/2021 8:49 am Signed by : MD HOPKINS LAURA Transcribed Date and Time: [...] Hardy MD - 05/25/2021 12:39 PM EDT ~~~~~~~~~~~~~~~~~~~~~~~~~~~~~~~~~~~~~~~~~~~~~~~~~~~~~~~~~~~~~ ATTENDING ADDENDUM CC: Left arm pain Active [...] MD Division of Trauma Department of Surgery [facility] Pager: [phone] ~~~~~~~~~~~~~~~~~~~~~~~~~~~~~~~~~~~~~~~~~~~~~~~~~~~~~~~~~~~~~ This note may have been dictated using SkyWire Medical Practice Edition 2.6 and/or DragonRAD Voice Recognition Feature. The document was proofread; however, unrecognized voice recognition workgroup leader errors may be present. * Carol Ascencio MD - 05/25/2021 6:15 AM EDT Images from the original note were not included. [facility] H[address] TELEMETRY [address] [place] [address] Dept: [phone] Loc: [phone] Orthopedic Progress Note Name: Albin Issa Date:05/25/2021 [...] Carol Ascencio MD Orthopaedic Surgery, PGY-2 x2380 * Radha Johnson RN - 05/24/2021 5:16 PM EDT Patient to be transported back to [facility]. Telephone report given to JUANCHO Wells with all questions answered at this time. Vital signs returned to baseline, patient awakens easily to voice, oriented x4. Monitoring completed. Patient transported via bed with transporters x2. * Stephanie Castillo RN - 05/24/2021 4:15 PM EDT Arrived from OR see notes. * Amalia Paul RN - 05/24/2021 1:14 PM EDT No falls risk wristband noted on pt, one applied to right wrist pre op * Maria L Jeffers PT - 05/24/2021 1:07 PM EDT Orders received, chart review performed. Spoke with nurse who reports patient was just taken to OR for possible ORIF. Will re-attempt tomorrow. * Frank Leo MD - 05/24/2021 6:22 AM EDT Name: Albin Issa : 1955 (home) Date: [...] eGFR 88.3 >60 mL/min EGFR IF NonAfrican [place] 76.2 >60 mL/min Calcium 9.3 8.4 - [...] # 1.3 1.0 - 4.3 10*3/uL Absolute Ness # 0.5 0.0 - 0.8 10*3/uL Absolute [...] team -Ortho to follow documented in this [facility] Work Phone: 1(241) 911-632206-30-2021 Hospital Discharge instructions* Discharge Instr - Activity* Hamilton Mckinnon APRN - NP - 05/31/2021 3:20 PM EDT Per ortho instructions * Discharge Instr - Diet* Hamilton Mckinnon APRN - NP - 05/31/2021 3:20 PM [...] most local grocery stores, pharmacies, and chain [employer]. If you have any questions about your diet or nutrition, call the hospital and ask for the dietitian. Regular diet * Discharge Instr - MICHAELA* Hamilton Mckinnon APRN - NP - 05/25/2021 12:30 PM EDT Continuity of Care Form Patient Name: Albin Issa : 1955 Admit date: 05/23/2021 Discharge date: Code Status Order: Full Code Advance Directives: Advance Care Flowsheet Documentation Date/Time Healthcare Directive Type of Healthcare Directive Copy in Chart Healthcare Agent Appointed Healthcare Agent's Name Healthcare Agent's Phone Number 05/24/21 0330 No, patient does not have an advance directive for healthcare treatment -- -- -- -- -- Admitting Physician: Roni Figueroa MD PCP: SPEEDY BOSWELL MD Discharging Nurse: Discharging Hospital Unit/Room#: 6111/789229 Discharging Unit Phone Number: Emergency Contact: Extended Emergency Contact Information Primary Emergency Contact: Maddy Issa [facility] Relation: Lay Caregiver Past Surgical History: [...] PACEMAKER INSERTION 2008 PACEMAKER PLACEMENT pacer/defib PTCA 2004 SHOULDER SURGERY Left rotator cuff repair SHOULDER [...] M16.12 S/P AKA (above knee amputation), right ([facility]) Z89.611 MRSA (methicillin resistant Staphylococcus aureus) infection [...] MENTAL STATUS::::0} IV Access: { MICHAELA IV ACCESS:206284215:::0} Nursing Mobility/ADLs: Walking {CHP DME ADLs:677228363:::0} Transfer {CHP DME ADLs:734017399:::0} Bathing {CHP DME ADLs:569328606:::0} Dressing {CHP DME ADLs:479826578:::0} Toileting {CHP DME ADLs:140069141:::0} Feeding {CHP DME ADLs:478069581:::0} Gastroenterology Physician {CHP DME ADLs:863899152:::0} Med Delivery { MICHAELA MED Delivery:409920045:::0} Wound Care Documentation and Therapy: Negative Pressure Wound Therapy Leg Right;Upper (Active) Number of days: 762 Elimination: Continence: Bowel: {YES / NO:} Bladder: {YES / NO:} Urinary Catheter: {Urinary Catheter:553104406:::0} Colostomy/Ileostomy/Ileal Conduit: {YES / NO:} Date of Last BM: No intake or output data in the 24 hours ending 05/25/21 1230 No intake/output data recorded. Safety Concerns: { MICHAELA Safety Concerns:198220240:::0} Impairments/Disabilities: { MICHAELA Impairments/Disabilities:212943066:::0} Nutrition Therapy: Current Nutrition Therapy: { MICHAELA Diet List:283731185:::0} Routes of Feeding: {CHP DME Other Feedings:122178675:::0} Liquids: {Show Operations Supervisor liquid thickness:74878} Daily Fluid Restriction: {CHP DME Yes amt example:911273633:::0} Last Modified Barium Swallow with Video (Video Swallowing Test): {Done Not Done Date:951298244:::0} Treatments at the Time of Hospital Discharge: Respiratory Treatments: Oxygen Therapy: {Therapy; copd oxygen:25368:::0} Ventilator: {[facility] Vent List:215940572:::0} Rehab Therapies: {THERAPEUTIC INTERVENTION:5385210125} Weight Bearing Status/Restrictions: {[facility] Weight Bearin:::0} Other Medical Equipment (for information only, NOT a DME order): {EQUIPMENT:111113455} Other Treatments: Patient's personal belongings (please select all that are sent with patient): {CHP DME Belongings:228914482:::0} RN SIGNATURE: {Esignature:907226854:::0} CASE MANAGEMENT/SOCIAL WORK SECTION Inpatient Status Date: 05-23-21 Readmission Risk Assessment Score: Readmission Risk Risk of Unplanned Readmission: 10 Discharging to Facility/ Agency Name: [facility] Address:[address] [place] [address] Dialysis Facility (if applicable) Name: Address: Dialysis Schedule: Phone: Fax: Skull Splitter/Blockmason signature: PHYSICIAN SECTION Prognosis: Good Condition at Discharge: Stable Rehab Potential (if transferring to Rehab): Good Recommended Labs or Other Treatments After Discharge: None Physician Certification: I certify the above information and transfer of Albin Issa is necessary for the continuing treatment of the diagnosis listed and that he requires [facility] Facility for less 30 days. Update Admission H&P: No change in H&P PHYSICIAN SIGNATURE: * Additional Instructions* Sd Moreno PA-C - 05/24/2021 General Orthopedic [...] wound is draining. If wound is dry, youmay leave dressing off -May shower starting post-op [...] in 2 weeks, or if you have anyproblems or questions. documented in this [facility] Work Phone: 1(429) 950-363708-02-2017 Fall risk kpplxozvzh2660/08/02[facility] NoFall risk assessmentWmymichigan [facility] Work Phone: 1(269) 521-664107-14-2017 Fall risk exeiqfcvie7506/07/14[facility] NoFall risk assessmentWmymichigan medical [facility] Work Phone: [phone] 100-785506-14-2017 Fall risk eprzwsnewm9414/06/14[facility] NoFall risk assessmentWmymich[facility] Infect[facility] Disease Work Phone: 1(634) 781-822105-31-2017 Fall risk tojyconbjn2348/05/31[facility] NoFall risk assessmentWmymichigan medical center [facility] Work Phone: [phone] Evaluation note* Diagnosis Onset Date Resolution Status 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 Mixed hyperlipidemia chronic Postsurgical aortocoronary bypass status June, chronic Automatic implantable cardio verter-defibrillator in situ chronic Chronic systolic congestive heart failure chronic Ischemic cardiomyopathy 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 Automatic implantable cardio verter-defibrillator in situ chronic Chronic systolic congestive heart failure chronic ICD (implantable cardioverte r-defibrillator) in place August, chronic Ischemic cardiomyopathy [facility] Work Phone: [phone] 859-994509-01-2010 Evaluation note* Diagnosis Onset Date Resolution Status Automatic implantable cardio verter-defibrillator in situ chronic Chronic systolic congestive heart failure chronic ICD (implantable cardioverte r-defibrillator) in place August, chronic Ischemic cardiomyopathy [facility] Work Phone: [phone]) 988-426009-01-2010 Evaluation note* Diagnosis Onset Date Resolution Status Automatic implantable cardio verter-defibrillator in situ chronic ICD (implantable cardioverte r-defibrillator) in place August, chronic Ischemic cardiomyopathy [facility] Work Phone: [phone] Evaluation note* Diagnosis Onset Date Resolution Status Chronic systolic congestive heart failure chronic ICD (implantable cardioverte r-defibrillator) in place August, chronic Ischemic cardiomyopathy 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 CAD (coronary artery disease) chronic Essential hypertension chron ic ICD (implantable cardioverte r-defibrillator) in place August, chronic Ischemic cardiomyopathy 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 Mixed hyperlipidemia chronic Ob[facility] (BMI 30-39.9) [facility] Work Phone: [phone]) 756-514809-01-2010 Evaluation note* Diagnosis Onset Date Resolution Status CAD (coronary artery disease) chronic Essential hypertension chron ic ICD (implantable cardioverte r-defibrillator) in place August, chronic Ischemic cardiomyopathy October, ch ronic Mixed hyperlipidemia chronic Obesity (BMI 30-39.9) chroni c CAD (coronary artery disease) chronic ICD (implantable cardioverte r-defibrillator) in place August, [facility] Work Phone: [phone]) 532-681409-01-2010 Evaluation note* Diagnosis Onset Date Resolution Status CAD (coronary artery disease) chronic ICD (implantable cardioverte r-defibrillator) in place August, [facility] Work Phone: [phone] 151-886709-01-2010 Evaluation note* Diagnosis Onset Date Resolution Status Admit Date ICD (implantable cardioverter-defibrillator) in place August, chronic January 25 1:51pm Ischemic cardiomyopathy October, chronic January 25, 2025 1:51pm CAD (coronary artery disease) chronic May 03, 2025 2 :00pm Essential hypertension chronic Ju 2024 2:00pm ICD (implantable cardioverter-defibrillator) in place August, chronic May 03, 2025 2 :00pm Ischemic cardiomyopathy October, chronic May 03, 2025 2:00pm Mixed hyperlipidemia chronic May 03, 2025 2:00pm Obesity (BMI 30-39.9) chronic Sly 2024 2:00pm [facility] Work Phone: Evaluation note* Diagnosis Acute traumatic pain- Primary Acute pain due to trauma Closed fracture of lower epiphysis of humerus Closed fracture of unspecified condyle(s) of humerus Left supracondylar humerus fracture, closed, initial encounter Ischemic cardiomyopathy Other specified forms of chronic ischemic heart disease Chronic systolic congestive heart failure (HCC) Chronic systolic heart failure documented in this encounter [facility] Work Phone: Evaluation note* Diagnosis Onset Date Resolution Status Lateral epicondylitis of left elbow acute Left elbow pain acute Atherosclerotic heart diseas e of alutiiq coronary artery without angina pectoris chronic Chronic systolic congestive heart failure chronic Essential hypertension chron ic ICD (implantable cardioverte r-defibrillator) in place August, chronic Ischemic cardiomyopathy 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 Mixed hyperlipidemia chronic Postsurgical aortocoronary bypass status June, chronic Automatic implantable cardio verter-defibrillator in situ chronic Chronic systolic congestive heart failure chronic Ischemic cardiomyopathy 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 [facility] Work Phone: Evaluation note* Diagnosis Arthritis of left subtalar joint documented in this encounter [facility] HealthEvaluation note* Diagnosis ICD (implantable cardioverter-defibrillator) battery depletion Pacemaker lead malfunction Mechanical complication due to cardiac pacemaker (electrode) ICD (implantable cardioverter-defibrillator) battery depletion [facility] Diagnosis Arthritis of left subtalar joint documented in this encounter [facility] HealthEvaluation note* Diagnosis Arthritis of left subtalar joint documented in this encounter [facility] Discharge instructions Additional Instructions You have a virus. Plenty of fluids and rest. Prednisone as needed for wheezing. Follow-up with your doctor if not improving or return if worse.[facility] Work Phone: Reason for referral (narrative)No reason for referral information availableFresno Surgical Hospital Work Phone: Summary Purpose Family History No Family History Records Found Relationship Condition Age at Onset Recorded Date/T fidel Not Specified Family history of ce rebrovascular accident (CVA) Unknown mother Coronary artery disease Unknown father Cerebrovascular accident (CVA) Unknown Myocardial infarction Unknown brother Coronary artery disease Unknown History of coronary artery bypass surgery Unknown Advance Directives No Advanced Directives Records FoundDocuments on File Type Date Recorded Patient Blocker And Cutter Contact Lens Expl anation ACP-Advance Directive ACP-Power of Freezer Laboratory Technician Latest Code Status on File Code Status Date Activated Date Inactivated Comments Full Code 05/24/2021 1:55 AM Full Code 05/07/2019 10:28 AM 05/07/2019 5:36 PM Full Code 04/23/2019 8:12 PM 04/25/2019 5:39 PM Full Code 04/23/2019 12:30 PM 04/23/2019 8:01 PM Full Code 03/05/2019 9:23 AM 03/05/2019 4:40 PM Advance Directive Response Recorded Date/ Time Advance Directives No December 31, 2015 7:47pm Living Will Yes January 15 11:11pm Power of Freezer Laboratory Technician Yes January 15, 2022 11:11pm Advance Directive Response Recorded Date/ Time Advance Directives No December 31, 2015 6:47pm Living Will Yes January 15, 10:11pm Power of Freezer Laboratory Technician Yes January 15, 2022 10:11pm Advance Directive Response Recorded Date/ Time Name of Medical Power of Freezer Laboratory Technician DAUGHTER AND S ON October 27, 2022 4:09pm Advance Directives No December 31, 2015 6:47pm Living Will Yes October 27, 022 4:09pm Power of Freezer Laboratory Technician Yes October 27, 2022 4:09pm Advance Directive Response Recorded Date/ Time Advance Directives No December 31, 2015 7:47pm Living Will Yes October 27, 022 5:09pm Power of Freezer Laboratory Technician Yes October 27, 2022 5:09pm Latest Code Status on File Code Status Date Activated Date Inactivated Comments Full Code 11/21/2023 3:07 PM Latest Code Status on File Code Status Date Activated Date Inactivated Comments Full Code 01/06/2024 1:43 PM Code Status History Code Status Date Activated Date Inactivated Comments Full Code 11/21/2023 3:07 PM 01/06/2024 1:43 PM Advance Directive Response Recorded Date/ Time Advance Directives No December 31, 2015 6:47pm Living Will Yes October 27, 4:09pm Power of Freezer Laboratory Technician Yes October 27, 2022 4:09pm Advance Directive Response Recorded Date/ Time Living Will Yes October 27 5:09pm Do you have a Healthcare Power of Freezer Laboratory Technician? Yes October 27, 2022 5:09pm Advance Directives No December 31, 2015 7:47pm Chief Complaint and Reason for Visit Chief Complaint flank pain seeeddie TERAN@2:30 PRE-OP EORDER- ANKLE EORDER Reason for Visit Atherosclerotic hear t disease of alutiiq coronary artery without angina pectoris Chronic systolic congestive heart failure Essential hypertension ICD (implantable cardioverter-defibrillator) in place Ischemic cardiomyopathy Mixed hyperlipidemia Postsurgical aortocoronary bypass status Automatic implantable cardioverter-defibrillator in situ Chronic systolic congestive heart failure Ischemic cardiomyopathy Chief Complaint seeeddie TERAN@2:30 PRE-OP EORDER- ANKLE EORDER 3 MO CK LT ANKLE OSTEOARTHRITIS Reason for Visit Atherosclerotic hear t disease of alutiiq coronary artery without angina pectoris Chronic systolic congestive heart failure Essential hypertension ICD (implantable cardioverter-defibrillator) in place Ischemic cardiomyopathy Mixed hyperlipidemia Postsurgical aortocoronary bypass status Automatic implantable cardioverter-defibrillator in situ Chronic systolic congestive heart failure Ischemic cardiomyopathy Automatic implantable cardioverter-defibrillator in situ Chronic systolic congestive heart failure ICD (implantable cardioverter-defibrillator) in place Ischemic cardiomyopathy Chief Complaint EORDER 3 MO CK LT ANKLE OSTEOARTHRITIS SUSPICIOUS SKIN LESION Reason for Visit Automatic implantabl e cardioverter-defibrillator in situ Chronic systolic congestive heart failure ICD (implantable cardioverter-defibrillator) in place Ischemic cardiomyopathy Chief Complaint SUSPICIOUS SKIN LESI ON LEFT ELBOW xray See KR @ 1:30pm LT ELBOW EPICONDYLITIS. RX HERE Reason for Visit Lateral epicondyliti s of left elbow Left elbow pain Atherosclerotic heart disease of alutiiq coronary artery without angina pectoris Chronic systolic congestive heart failure Essential hypertension ICD (implantable cardioverter-defibrillator) in place Ischemic cardiomyopathy Mixed hyperlipidemia Postsurgical aortocoronary bypass status Automatic implantable cardioverter-defibrillator in situ Chronic systolic congestive heart failure Ischemic cardiomyopathy Chief Complaint LEFT ELBOW xray See KR @ 1:30pm LT ELBOW EPICONDYLITIS. RX HERE SOB, COUGH, WHEEZING Reason for Visit Lateral epicondyliti s of left elbow Left elbow pain Atherosclerotic heart disease of alutiiq coronary artery without angina pectoris Chronic systolic congestive heart failure Essential hypertension ICD (implantable cardioverter-defibrillator) in place Ischemic cardiomyopathy Mixed hyperlipidemia Postsurgical aortocoronary bypass status Automatic implantable cardioverter-defibrillator in situ Chronic systolic congestive heart failure Ischemic cardiomyopathy Chief Complaint SOB, COUGH, WHEEZING 3 mos ICD f/u Reason for Visit Automatic implantabl e cardioverter-defibrillator in situ ICD (implantable cardioverter-defibrillator) in place Ischemic cardiomyopathy Chief Complaint 2 M ICD/F/U approach ing JESSICA/AR @ 2:30 6 M FU/PEG @ 2 CP, SOB CP, SOB Amb Documentation Reason for Visit Chronic systolic con gestive heart failure ICD (implantable cardioverter-defibrillator) in place Ischemic cardiomyopathy CAD (coronary artery disease) Essential hypertension ICD (implantable cardioverter-defibrillator) in place Ischemic cardiomyopathy Mixed hyperlipidemia Obesity (BMI 30-39.9) Chief Complaint CP, SOB CP, SOB Amb Documentation 6 wk FU TEACHING PRIOR TO GEN CHANGE S/P ST [facility] 01/06 Reason for Visit CAD (coronary artery disease) Essential hypertension ICD (implantable cardioverter-defibrillator) in place Ischemic cardiomyopathy Mixed hyperlipidemia Obesity (BMI 30-39.9) CAD (coronary artery disease) ICD (implantable cardioverter-defibrillator) in place Chief Complaint Pacer Check Remote S/P ST [facility] 01/06 LT KNEE OA Reason for Visit CAD (coronary artery disease) ICD (implantable cardioverter-defibrillator) in place Chief Complaint Admit Date Pacer Check Remote January 25, 2025 9:00am Annual in-clinic f/u January 25, 2025 1:51pm Pacer Check Remote February 04, 2025 4:38 pm Pacer Check Remote February 18, 2025 2:0 0am 6 M FU May 03, 2025 2:00p m Reason for Visit Admit Date ICD (implantable cardioverter-defibrilla tor) in place January 25, 2025 1:51pm Ischemic cardiomyopathy January 25 1:51pm CAD (coronary artery disease) May 03, 2025 2:00pm Essential hypertension May 03, 2025 2: 00pm ICD (implantable cardioverter-defibrilla tor) in place May 03, 2025 2:00pm Ischemic cardiomyopathy May 03, 2025 2 :00pm Mixed hyperlipidemia May 03, 2025 2:00 pm Obesity (BMI 30-39.9) May 03, 2025 2:0 0pm Reason for Referral Specialty Diagnoses / Procedures Referred By Contac t Referred To Contact Procedures PACEMAKER/ICD INTERROGATION David Ramirez MD [address] [place] [phone] Referral ID Status Reason Start Date Expiration Date V isits Requested Visits Authorized [id number] New Request 01/06/2024 01/30/2025 1 1 Specialty Diagnoses / Procedures Referred By Contac t Referred To Contact Procedures NO PHARMACOLOGICAL DVT PROPHYLAXIS Rosio Douglass APRN-PANEL COVERER [address] [place] [phone] Referral ID Status Reason Start Date Expiration Date V isits Requested Visits Authorized [id number] New Request 01/06/2024 01/30/2025 1 1 Specialty Diagnoses / Procedures Referred By Contac t Referred To Contact Procedures DVT/VTE RISK ASSESSMENT Rosio Douglass APRN-PANEL COVERER [address] [place] [phone] Referral ID Status Reason Start Date Expiration Date V isits Requested Visits Authorized [id number] New Request 01/06/2024 01/30/2025 1 1 Specialty Diagnoses / Procedures Referred By Contdipak t Referred To Contact Procedures ECG Wilda Hinojosa, MEDICAL OFFICE ASSISTANT INSTRUCTOR-PANEL COVERER [address] [place] [id number] Referral ID Status Reason Start Date Expiration Date V isits Requested Visits Authorized [id number] New Request 01/06/2024 01/30/2025 1 1 Additional Source Comments (unrecognized sect ion and content) No Status Records FoundNo Status Records FoundNo Status Records FoundNo Status Records FoundNo Status Records FoundNo Status Records FoundNo Status Records Found INFORMATION SOURCE (unrecogn ized section and content) DATE CREATED AUTHOR 04/20/2020 [facility] DATE CREATED AUTHOR AUTHOR'S ORGANIZ ATION 06/02/2021 [employer] DATE CREATED AUTHOR AUTHOR'S ORGANIZ ATION 06/11/2021 [employer] DATE CREATED AUTHOR AUTHOR'S ORGANIZ ATION 03/09/2022 [facility] DATE CREATED AUTHOR AUTHOR'S ORGANIZ ATION 01/16/2024 [facility] DATE CREATED AUTHOR AUTHOR'S ORGANIZ ATION 03/31/2024 [facility] [employer] [facility] DATE CREATED AUTHOR AUTHOR'S ORGANIZ ATION 05/05/2025 [facility] Ordered Prescriptions (unrec ognized section and content) Prescription Sig Dispensed Refills Start Date End Da te senna (SENOKOT) 8.6 MG tablet Take 2 tablets by mouth 2 times daily 120 tablet 0 05/31/2021 06/30/2021 polyethylene glycol (GLYCOLAX) 17 g packet Take 17 g by mouth 2 times daily 527 g 1 05/31/2021 06/30/2021 bisacodyl (DULCOLAX) [address] 1 suppository rectally daily as needed for Constipation 0 05/31/2021 06/30/2021 enoxaparin (LOVENOX) 40 MG/0.4ML injection Inject 0.4 mLs into the skin 2 times daily Continue while in rehab, discontinue on discharge to home 0 05/31/2021 acetaminophen (TYLENOL) 500 MG tablet Take 2 tablets by mouth every 8 hours 120 tablet 0 05/31/2021 oxyCODONE (ROXICODONE) 5 MG immediate release tabletIndications:Acu te traumatic pain Take 1 tablet by mouth every 6 hours as needed for Pain for up to 5 days. 20 tablet 0 05/31/2021 06/05/2021 Scheduled Active and Recently Administ ered Medications (unrecognized section and content) Medication Order 05/30/2021 05/31/2021 06/01/2021 acetaminophen (TYLENOL) tablet 1,000 mg 1,000 mg, Oral, EVERY 8 HOURS SCHEDULED (3 times per day), First dose on Sat05/24/21 at 0600, Maximum dose of acetaminophen is 4000 mg from all sources in 24 hours. 0533 (Given - Provider: Kenan Jacobsen RN)1621 (Given - Provider: Mary Anne Husain RN)2099 (Given - Provider: María Henry RN) 05 (Given - Provider: María Henry RN)1607 (Not Given - Provider: Haylee Abdullahi RN - Reason: Patient/family refused)1947 (Given - Provider: Kenan Jacobsen RN) 0600 (Due)1400 (Due)2200 (Due) aspirin EC tablet 81 mg 81 mg, Oral, DAILY, First dose on Sat05/24/21 at 0900, Do not crush or break. 0910 (Given - Provider: Mary Anne Husain RN) 09 (Given - Provider: Haylee Abdullahi, JUANCHO) 09 (Due) atorvastatin (LIPITOR) tablet 40 mg 40 mg, Oral, NIGHTLY, First dose on Sat05/24/21 at 2099 2013 (Given - Provider: María Henry RN) 194 (Given - Provider: Kenan Jacobsen RN) 2099 (Due) bisacodyl (DULCOLAX) suppository 20 mg 20 mg, Rectal, DAILY, First dose (after last modification) on Sat05/30/21 at 0900 0912 (Given - Provider: Mary Anne Husain RN) 09 (Given - Provider: Haylee Abdullahi RN) 09 (Due) buPROPion (WELLBUTRIN SR) extended release tablet 150 mg 150 mg, Oral, 2 TIMES DAILY, First dose on Sat05/24/21 at 0215, Do not crush or break. 0915 (Given - Provider: Mary Anne Husain RN)2013 (Given - Provider: María Henry RN) 921 (Given - Provider: Haylee Abdullahi RN)1947 (Given - Provider: Kenan Jacobsen RN) 899 (Due)2099 (Due) carvedilol (COREG) tablet 3.125 mg 3.125 mg, Oral, 2 TIMES DAILY WITH MEALS, First dose on Sat05/24/21 at 0800, Administer with food to minimize the risk of orthostatic hypotension 0910 (Given - Provider: Mary Anne Husain RN)162 (Given - Provider: Mary Anne Husain RN) 09 (Given - Provider: Haylee Abdullahi RN)175 (Given - Provider: Haylee Abdullahi RN) 08 (Due)1700 (Due) cetirizine (ZYRTEC) tablet 10 mg 10 mg, Oral, DAILY, First dose on Sat05/24/21 at 0900, Substituted for Loratadine (CLARITIN). 09 (Given - Provider: Mary Anne Husain RN) 921 (Given - Provider: Haylee Abdullahi RN) 899 (Due) clopidogrel (PLAVIX) tablet 75 mg 75 mg, Oral, DAILY, First dose on Sat05/24/21 at 0900 09 (Given - Provider: Mary Anne Husain RN) 921 (Given - Provider: Haylee Abdullahi RN) 899 (Due) docusate sodium (COLACE) capsule 200 mg 200 mg, Oral, 2 TIMES DAILY, First dose (after last modification) on Sat05/28/21 at 2100, Do not crush or break. 09 (Given - Provider: Mary Anne Huasin RN)2013 (Given - Provider: María Henry RN) 920 (Given - Provider: Haylee Abdullahi RN)1946 (Given - Provider: Kenan Jacobsen RN) 09 (Due)2099 (Due) enoxaparin (LOVENOX) injection 30 mg (CANCELED) 30 mg, Subcutaneous, 2 TIMES DAILY, First dose on Sat05/25/21 at 0900 0910 (Given - Provider: Mary Anne Husain RN) enoxaparin (LOVENOX) injection 40 mg 40 mg, Subcutaneous, 2 TIMES DAILY, First dose (after last modification) on Sat05/30/21 at 2099 2013 (Given - Provider: María Henry RN) 921 (Given - Provider: Haylee Abdullahi RN)1947 (Given - Provider: Kenan Jacobsen RN) 899 (Due)2099 (Due) escitalopram (LEXAPRO) tablet 20 mg 20 mg, Oral, DAILY, First dose on Sat05/24/21 at 0900 0910 (Given - Provider: Mary Anne Husain RN) 09 (Given - Provider: Haylee Abdullahi RN) 899 (Due) furosemide (LASIX) tablet 40 mg 40 mg, Oral, 2 TIMES DAILY, First dose (after last modification) on Sat05/26/21 at 1730 0910 (Given - Provider: Mary Anne Husain RN)162 (Given - Provider: Mary Anne Husain RN) 09 (Given - Provider: Haylee Abdullahi RN)175 (Given - Provider: Haylee Abdullahi RN) 0800 (Due)1729 (Due) gabapentin (NEURONTIN) capsule 300 mg 300 mg, Oral, NIGHTLY, First dose on Sat05/24/21 at 2099 2013 (Given - Provider: María Henry RN) 1948 (Not Given - Provider: Kenan Jacobsen RN - Reason: Patient/family refused - Comment: Pt wants to take later) 2099 (Due) isosorbide mononitrate (IMDUR) extended release tablet 60 mg 60 mg, Oral, 2 TIMES DAILY, First dose on Sat05/24/21 at 0215, Do not crush or chew. 0910 (Given - Provider: Mary Anne Husain RN)2013 (Given - Provider: María Henry RN) 925 (Given - Provider: Haylee Abdullahi RN)1946 (Given - Provider: Kenan Jacobsen RN) 899 (Due)2099 (Due) magnesium citrate solution 296 mL (COMPLETED) 296 mL, Oral, ONCE, On Sat05/30/21 at 1000, For 1 dose, Administer each dose with 8 oz (240 mL) of water. 1133 (Given - Provider: Mary Anne Husain RN) meloxicam (MOBIC) tablet 15 mg 15 mg, Oral, DAILY, First dose on Sat05/24/21 at 0900 0900 (Automatically Held) 09 (Automatically Held) 899 (Automatically Held) niacin (NIASPAN) extended release tablet 1,000 mg 1,000 mg, Oral, NIGHTLY, First dose on Sat05/24/21 at 2099, Do not crush or break. 2013 (Given - Provider: María Henry RN) 1948 (Given - Provider: Kenan Jacobsen RN) 2099 (Due) polyethylene glycol (GLYCOLAX) packet 17 g 17 g, Oral, 2 TIMES DAILY, First dose (after last modification) on Sat05/28/21 at 2099 09 (Given - Provider: Mary Anne Husain RN)2012 (Not Given - Provider: María Henry RN - Reason: Patient/family refused) 921 (Given - Provider: Haylee Abdullahi RN)1949 (Given - Provider: Kenan Jacobsen RN) 899 (Due)2099 (Due) potassium chloride (KLOR-CON M) extended release tablet 40 mEq 40 mEq, Oral, DAILY, First dose on Sat05/24/21 at 0900, Do not crush, chew, or suck on tablet. Tablet may also be broken in half and each half swallowed separately. 0910 (Given - Provider: Mary Anne Husain RN) 921 (Given - Provider: Haylee Abdullahi, JUANCHO) 899 (Due) ramipril (ALTACE) capsule 2.5 mg 2.5 mg, Oral, DAILY, First dose on Sat05/24/21 at 0900 0911 (Given - Provider: Mary Anne Husain RN) 09 (Given - Provider: Haylee Abdullahi, JUANCHO) 899 (Due) ranolazine (RANEXA) extended release tablet 1,000 mg 1,000 mg, Oral, 2 TIMES DAILY, First dose on Sat05/24/21 at 0215, Do not crush or break. 0909 (Given - Provider: Mary Anne Husain RN)2013 (Given - Provider: María Henry RN) 921 (Given - Provider: Haylee Abdullahi, JUANCHO)1946 (Given - Provider: Kenan Jacobsen, JUANCHO) 899 (Due)2099 (Due) senna (SENOKOT) tablet 17.2 mg 17.2 mg (2 tablet), Oral, 2 TIMES DAILY, First dose (after last modification) on Sat05/29/21 at 2100 0910 (Given - Provider: Mary Anne Husain RN)2013 (Given - Provider: María Henry RN) 921 (Given - Provider: Haylee Abdullahi RN)1946 (Given - Provider: Kenan Jacobsen RN) 899 (Due)2099 (Due) sodium chloride flush 0.9 % injection 5-40 mL 5-40 mL, Intravenous, EVERY 12 HOURS SCHEDULED (2 times per day), First dose on Sat05/24/21 at 0900, For Line Patency: Peripheral IV = 5 [...] Midline or Central Line = 20 mL/lumen 0911 (Given - Provider: Mary Anne Husain, JUANCHO)2015 (Given - Provider: María Henry RN) 925 (Given - Provider: Haylee Abdullahi, JUANCHO)1949 (Not Given - Provider: Kenan Jacobsen RN - Reason: Loss of IV access) 899 (Due)2099 (Due) PRN Medication Order 05/30/2021 05/31/2021 06/01/2021 0.9 [...] dose on Sat01/06/24 at 1700, Until Discontinued 222 (Given - Provider: Jessie Mccoy RN) 0842 [...] dose on Sat01/06/24 at 1600, Until Discontinued 173 (Given - Provider: Claudia Murray RN) 0844 [...] 2216 (Given - Provider: Jessie Mccoy RN) 841 (Given - Provider: Kala Arellano RN) Lisinopril (PRINIVIL) tablet 10 mg 10 mg, Oral, DAILY, First dose on Sat01/07/24 at 0900, Until Discontinued 08 (Given - Provid er: Kala Arellano RN) Pantoprazole (PROTONIX) tablet DR 40 mg 40 mg, Oral, DAILY, First dose on Sat01/07/24 at 0900, Until Discontinued, Swallow whole; do not crush or chew., Indications: Continuation of Home Therapy 843 (Given - Provid er: Kala Arellano RN) temazepam (RESTORIL) capsule 15 mg 15 mg, Oral, DAILY AT BEDTIME, First dose on Sat01/06/24 at 2100, Until Discontinued, Swallow capsule whole; do not crush, open, or chew. Contact pharmacy if alternate route or dose is needed. 2239 (Given - Provider: Jessie Mccoy RN) traZODone (DESYREL) tablet 50 mg 50 mg, Oral, DAILY AT BEDTIME, First dose on Sat01/06/24 at 2100, Until Discontinued 2217 (Given - Provider: Jessie Mccoy, JUANCHO) PRN Medication Order 01/05/2024 01/06/2024 01/07/2024 Acetaminophen [...] 1,500 mg, Intravenous, Administer over 1 Hours, FOUR SLIDE OPERATOR TO PROCEDURE, 1 dose, Starting on Sat01/06/24 at 0000, Until Discontinued, Other, Preoperative antibiotic, Order should be timed for day of procedure. 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 Vancomycin is preferred agent for device implants, based on national, community and local (OSUM) MRSA rates., Pre-op/Pre-Proc 0735 ($$New Bag$$ - Provider : Kala Arellano RN) No Frequency Medication Order 01/05/2024 01/06/2024 01/07/2024 Sodium chloride 0.9% IV solution (COMPLETED) 1 dose, Starting on Sat01/06/24 at 0711, Until Sat01/07/24 at 0730, Created by cabinet override 0735 ($$New Bag$$ - Provider : Kala Arellano RN) Linked Groups Order Group 1: oxyCODONE [...] (RR<10, decrease in level of consciousness)
Post-op/Post-Proc Goals (unrecognized section and content) Goals may be documented in a n alternate sectionGoals may be documented in an alternate sectionGoals may be documented in an alternate sectionGoals may be documented in an alternate sectionGoals may be documented in an alternate sectionGoals may be documented in an alternate sectionGoals may be documented in an alternate sectionGoals may be documented in an alternate sectionGoals may be documented in an alternate sectionGoals may be documented in an alternate section Care Teams (unrecognized sec tion and content) Team Status: Active Member Role Status Dates Dr. Speedy Boswell MD Family Provider Active Dr. Speedy Boswell MD Primary Care Provider Active Team Status: Inactive Member Role Status Dates Dr. Speedy Boswell MD Primary Care Provider Active Bethany Deng Active Dr. Speedy Mtz MD Attending Provider, Referring Provider Active Team Status: Inactive Member Role Status Dates Dr. Speedy Boswell MD Primary Care Provider Active Dr. Vicente Burgos MD Attending Provider, Emergency Pro vider Active Team Status: Inactive Member Role Status Dates Dr. Speedy Boswell MD Primary Care Provider Active Radha Sanches NP-C Attending Provider Active Urban Anthropologist Relationship Specialty Start Date End Date Speedy Boswell MD [address] [facility] [address] [place] [address] PCP - General 01/19/19 Team Status: Inactive Member Role Status Dates Dr. Speedy Boswell MD Primary Care Provider, Referring Provider Active Bethany Deng Attending Provider Active Team Status: Inactive Member Role Status Dates Dr. Speedy Boswell MD Primary Care Provider, Referring Provider Active Dr. Delilah Villagomez MD Attending Provider Active Team Status: Active Member Role Status Dates Dr. Speedy Boswell MD Primary Care Provider Active Dr. Delilah Villagomez MD Attending Provider , Referring Provider, Other Provider Active Team Status: Active Member Role Status Dates Dr. Speedy Boswell MD Primary Care Provider Active Gina Rosado NP, SALES INCENTIVE ANALYST-C Attending Provider Active Team Status: Inactive Member Role Status Dates Dr. Speedy Boswell MD Primary Care Provider Active Dr. Delilah Villagomez MD Attending Provider, Referring Pr ovider Active Urban Anthropologist Relationship Specialty Start Date End Date Speedy Boswell MD [address] [place], [place] [id number] PCP - General Family Medicine 11/21/23 Delilah Villagomez MD [address] [place], [place] [id number] Cardiovascular Disease 09/11/23 Urban Anthropologist Relationship Specialty Start Date End Date Speedy Boswell MD [address] [facility] [address] [place], [place] [phone] PCP - General Family Medicine 11/21/23 Delilah Villagomez MD [address] [place], [place] [address] Cardiovascular Disease 09/11/23 Team Status: Inactive Member Role Status Dates Dr. Speedy Boswell MD Primary Care Provi talat, Attending Provider, Referring Provider Active Team Status: Inactive Member Role Status Dates Dr. Speedy Boswell MD Primary Care Provider Active Hannah Howe Attending Provider, Referring Provide r Active Team Status: Inactive Member Role Status Dates Dr. Speedy Boswell MD Primary Care Provider Active Bethany Deng Active Dr. Ge Tomlinson MD Attending Provider, Referring Pro vider Active Team Status: Inactive Member Role Status Dates Dr. Speedy Boswell MD Primary Care Provider Active Dr. Ge Tomlinson MD Attending Provider, Referring Pro vider Active Team Status: Inactive Member Role Status Dates Dr. Speedy Boswell MD Primary Care Provider Active Dr. Louis Cazares DO Attending Provider, Referring Provider Active Urban Anthropologist Relationship Specialty Start Date End Date Speedy Boswell MD [address] [facility] [address] [place] [address] PCP - General 01/19/19 Urban Anthropologist Relationship Specialty Start Date End Date Speedy Boswell MD [address] [facility] [address] [place] [phone] PCP - General 01/19/19 Team Status: Active Member Role Status Dates Dr. Speedy Boswell MD Primary Care Provider Active Team Status: Inactive Member Role Status Dates Dr. Speedy Boswell MD Primary Care Provider Active Start: January 25, 2025 End: January 25, 2025 Dr. Ge Tomlinson MD Attending Provider Active S tart: January 25, 2025 End: January 25, 2025 Team Status: Inactive Member Role Status Dates Dr. Speedy Boswell MD Primary Care Provider Active Start: January 25, 2025 End: January 25, 2025 Dr. Ge Tomlinson MD Attending Provider Active S tart: January 25, 2025 End: January 25, 2025 Dr. Ge Tomlinson MD Referring Provider Active S tart: January 25, 2025 End: January 25, 2025 Team Status: Inactive Member Role Status Dates Dr. Speedy Boswell MD Primary Care Provider Active Start: February 04, 2025 End: February 04, 2025 Dr. Ge Tomlinson MD Attending Provider Active S tart: February 04, 2025 End: February 04, 2025 Dr. Ge Tomlinson MD Referring Provider Active S tart: February 04, 2025 End: February 04, 2025 Team Status: Inactive Member Role Status Dates Dr. Speedy Boswell MD Primary Care Provider Active Start: February 18, 2025 End: February 18, 2025 Dr. Ge Tomlinson MD Attending Provider Active S tart: February 18, 2025 End: February 18, 2025 Dr. Ge Tomlinson MD Referring Provider Active S tart: February 18, 2025 End: February 18, 2025 Team Status: Inactive Member Role Status Dates Dr. Speedy Boswell MD Primary Care Provider Active Start: May 03, 2025 End: May 03, 2025 Dr. Speedy Boswell MD Referring Provider Active Start: May 03, 2025 End: May 03, 2025 Dr. Delilah Villagomez MD Attending Provider Active Start: May 03, 2025 End: May 03, 2025 Reason for Visit (unrecogniz ed section and content) Reason Comments Follow-up USG left subtalar haile int injection Specialty Diagnoses / Procedures Referred By Contac t Referred To Contact Diagnoses Venous (peripheral) insufficiency Venous (peripheral) insufficiency [I87.2] Procedures GA INJECTION PROC,EXTREMITY,VENOGRAPHY VENOGRAM David Ramirez MD [address] [place] [phone] [facility] [address] [place] [address] Referral ID Status Reason Start Date Expiration Date Visits Re quested Visits Authorized [id number] 1 1 Specialty Diagnoses / Procedures Referred By Contac t Referred To Contact Diagnoses ICD (implantable cardioverter-defibrillator) battery depletion ICD (implantable cardioverter-defibrillator) battery depletion [Z45.02] Procedures GA RMVL IMPLTBL DFB PLSE GEN W/REPL PLSE GEN 1 LEAD GA INSJ 1 TRANSVNS ELTRD PERM PACEMAKER/IMPLTBL DFB ICD GENERATOR CHANGEOUT LEAD INSERTION Justin Pittman MD [address] [place] [phone] [facility] [address] [place] [address] Referral ID Status Reason Start Date Expiration Date Visits Re quested Visits Authorized [id number] 1 1 Reason Comments Follow-up USG left ankle injec tion Reason Comments Injection USG left subtalar haile int FOR RECORDS PERTAINING TO PATIENTS WHO ARE [...] BE BASED ON THE PRIMARY CLINICAL RECORDS. [employer] provides no warranty or guarantee of the accuracy or completeness of information in this document.
[2025-05-09 01:07] LABS: Anion Gap 11 (5-15); BUN 20 mg/dL (4-19); BUN/Creat Ratio 16.2 RATIO (10-20); Calcium,Total 9.7 mg/dL (7.6-11.0); Carbon Dioxide 24.1 mmol/L (21.0-32.0); Chloride 105 mmol/L (98-108); Creatinine, Serum 1.25 mg/dL (0.70-1.20); EST Glomerular Filtration Rate 62 (>60); Estimated Creatinine Clearance 74.15 ml/min (50-250); Glucose 88 mg/dL (70-99); Potassium 3.5 mmol/L (3.3-5.1); Pro- Brain NATRIURETIC PEPTIDE 86 pg/mL (<=900); Sodium Level 140 mmol/L (133-145); Troponin T High Sensitivity 14 ng/L (<=22)
[2025-05-09 01:17] LABS: D-Dimer Quantitative (DVT/PE) 0.59 FEU/ug/m (0.27-0.49)
--- NOTE | 2025-05-09 01:35 | RAD_ITS ---
PROCEDURE: CHEST PA AND LATERAL 05/09/2025 REASON FOR EXAM: CHEST PAIN TECHNIQUE: Frontal and lateral views of the chest. COMPARISON: 10/27/2022. FINDINGS: AICD is in good position. Unremarkable median sternotomy wires. Unchanged mild central pulmonary venous congestion. There is no demonstrated pleural abnormality. Enlarged cardiac silhouette. Normal mediastinum and keke. Normal visualized pulmonary arteries. Atheromatous plaques of the visualized aortic arch and descending thoracic aorta. Diffuse spondylosis of the visualized thoracic spine. Normal visualized ribs, clavicles. Degenerative joint disease. There is no demonstrated abnormality of the visualized soft tissue structures of the upper abdomen. RAD/Chest PA and Lateral IMPRESSION: Unchanged cardiomegaly. Unchanged mild central pulmonary venous congestion. Reading [facility]
[2025-05-09 02:00] VITALS: BP 130/70; PULSE 52; RESP 18; O2SAT 97
[2025-05-09 02:39] LABS: Troponin T High Sens 2 HR 14 ng/L (<=22)
--- NOTE | 2025-05-09 02:52 | ED.VIS.CHEST ---
HPI History of Present Illness Chief Complaint: Chest Pain Informant: patient Narrative Narrative: Chest pain on and off since yesterday. Worse with movement. States intermittent sharp sensations moved to the right side. No cough. History of coronary disease two-vessel CABG in the past. States he had a maker. He is followed by Dr. Foster. Reports his maker started with sore throat. He seen his loin trimmer a week ago has a plan repeat cath beginning of next month. He has an ICD. He is on aspirin and Plavix. No recent travel or surgeries. No history of PE or DVT. Prior Similar Symptoms: No CVD Risk Factors: Positive for Hypertension and Hypercholesterolemia; Negative for Diabetes, Family History 1' </=55 or Smoking PE Risk Factors: Negative for Recent Travel/Surgery, Recent Immobilization or Prior DVT or PE [facility] Medical History Coronary atherosclerosis of bypass graft Wears hearing aid Wears glasses Wears contact lenses Wears partial dentures Diabetes Arthritis Anemia Back pain Injury of head and neck Difficulty swallowing Phantom pain after amputation of lower extremity Stuttering History of pain when walking History of edema History of echocardiogram History of stress test Cardiology follow-up encounter Lateral epicondylitis of left elbow Left elbow pain Over 65 years old COVID-19 Fracture, humerus Fall Cancer Depression Former smoker CPAP (continuous positive airway pressure) dependence Pacemaker TIA (transient ischemic attack) Esophageal foreign body Stroke-like symptoms Paresthesia of left upper extremity Renal calculi GERD (gastroesophageal reflux disease) Chest pain Mixed hyperlipidemia Essential hypertension Obesity (BMI 30-39.9) Surgical wound dehiscence Above knee amputation of right lower extremity Debility Lymphedema of right lower extremity Automatic implantable cardioverter-defibrillator in situ Chronic systolic congestive heart failure GERD (gastroesophageal reflux disease) Atherosclerotic heart disease of [place] coronary artery without angina pectoris Shortness of breath 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 Ischemic cardiomyopathy (~10/30/23) Atherosclerosis of coronary artery bypass graft without angina pectoris Gastroenteritis SIRS (systemic inflammatory response syndrome) Morbid obesity with BMI of 40.0-44.9, adult Effects of radiation Acute lymphangitis of right lower extremity ICD (implantable cardioverter-defibrillator) in place (~08/17/10) Lymphedema of Right Leg CAD (coronary artery disease) Chronic Systolic CHF - EF 45% GERD (gastroesophageal reflux disease) Home Medications ?Medication ?Instructions ?Recorded ?Last Taken ?Type aspirin 81 mg chewable tablet 81 mg PO QHS Heart health 06/09/17 11/08/24 History gabapentin 300 mg capsule 300 mg PO QHS Rls 09/21/20 06/10/24 History temazepam 15 mg capsule 15 mg PO QHS PRN Sleep 09/21/20 06/10/24 History trazodone 50 mg tablet 50 mg PO QHS sleep 03/22/21 06/10/24 History escitalopram oxalate 20 mg tablet 20 mg PO DAILY 08/20/22 06/11/24 History multivitamin (Daily Multi-Vitamin 1 tab PO DAILY 05/27/24 06/06/24 History tablet) pantoprazole 40 mg tablet,delayed 40 mg PO DAILY gerd #90 tabs 09/21/24 11/18/24 05:45 Rx release clopidogrel 75 mg tablet (Plavix) 75 mg PO DAILY blood clots #90 tabs 10/12/24 11/08/24 Rx furosemide 40 mg tablet 40 mg PO BID #180 tabs 10/19/24 Unknown Rx acetaminophen 500 mg tablet 1,000 mg PO Q8 PRN fever or pain 10/21/24 Unknown History desloratadine 5 mg tablet 5 mg PO DAILY PRN allergy symptoms 10/21/24 Unknown History finasteride 5 mg tablet 5 mg PO DAILY 10/21/24 Unknown History dapagliflozin propanediol 10 mg 10 mg PO DAILY #90 tabs 12/10/24 Unknown Rx tablet (Farxiga) carvedilol 25 mg tablet 25 mg PO BID heart #180 tabs 12/25/24 Unknown Rx potassium chloride 20 mEq 40 meq (2 x 20 mEq) PO QDAY 02/23/25 Unknown Rx tablet,extended release supplement #180 tabs ramipril 10 mg capsule 10 mg PO DAILY #90 caps 04/15/25 Unknown Rx atorvastatin 40 mg tablet (Lipitor) 40 mg PO QDAY #90 tabs 05/03/25 Unknown Rx isosorbide mononitrate 60 mg 60 mg PO QDAY blood pressure #90 05/03/25 Unknown Rx tablet,extended release 24 hr tabs Allergy/AdvReac Type Severity Reaction Status Date / Time No Known Allergies Allergy Verified 05/09/25 00:02 Family History Mother CAD (coronary artery disease) Father CVA (cerebral vascular accident) Myocardial infarction Brother CAD (coronary artery disease) Hx of CABG Brother CAD (coronary artery disease) Hx of CABG Other Family history of CVA Surgical History History of implantable cardiac defibrillator (ICD) Hx of arthroscopic knee surgery H/O heart artery stent Hx of lithotripsy History of shoulder surgery History of cardiac catheterization Hx of colonoscopy Hx of esophagogastroduodenoscopy Presence of stent in coronary artery (~10/15/13) Postsurgical aortocoronary bypass status (~06/01/05) Social History Smoking Status: Former smoker how long ago did patient quit smokin alcohol intake: current alcohol intake frequency: a few times a month substance use type: does not use caffeine: Yes ROS ROS ED Constitutional Constitutional ED: Denies chills, fever(s) or sweats ENT ENT ED: Denies sore throat Cardiovascular Cardiovascular: Reports chest pain; Denies leg edema, palpitations or racing heartbeat Respiratory/Chest Respiratory/Chest: Denies cough, dyspnea or dyspnea on exertion Gastrointestinal Gastrointestinal: Denies abdominal pain, diarrhea, nausea or vomiting Genitourinary Genitourinary ED: Denies dysuria, hematuria or urinary frequency Musculoskeletal Musculoskeletal: Denies back pain, extremity pain or neck pain Integumentary Denies rash or wounds Neurologic Neurologic: Denies headache(s), paresthesias or weakness EXAM Physical Exam Const Vital Signs: 05/09/25 00:02 05/09/25 00:06 05/09/25 00:32 Temperature 98.2 F Temperature Source Oral Pulse Rate 58 L Respiratory Rate 18 Respiratory Effort Normal Non-Labored Respiratory Pattern Normal Blood Pressure 145/80 H Blood Pressure Mean 101 Pulse Ox 100 98 Oxygen Delivery Method Room Air Room Air 05/09/25 01:01 05/09/25 02:00 05/09/25 02:53 Temperature 98.2 F Temperature Source Pulse Rate 59 L 52 L 57 L Respiratory Rate 25 H 18 16 Respiratory Effort Respiratory Pattern Blood Pressure 125/60 H 130/70 H 104/82 H Blood Pressure Mean 81 90 89 Pulse Ox 100 97 97 Oxygen Delivery Method Room Air Room Air Positive well nourished and well developed General Appearance ED: well developed and NAD HEENT Reports moist mucous membranes normocephalic and atraumatic Eyes General Eye ED: Yes normal appearance of both eyes Neck full ROM Chest Wall Chest: Negative for tenderness Resp normal respiratory effort and normal air movement Effort and Inspection: symmetric chest movement; Negative for respiratory distress Cardio regular rate, regular rhythm and no murmurs Peripheral Pulses: pulses 2+ throughout GI normal to inspection, nondistended, normoactive bowel sounds and non-tender Palpation: Negative for guarding or rebound tenderness present Extremity normal to inspection General Extremety ED: Negative for edema or tenderness General Extremity: Negative for edema Neuro oriented x3 and no sensory deficits noted Sensorium / Orientation: awake and alert Skin no rashes or lesions noted and no wounds MDM MDM MDM Narrative Medical decision making narrative: Interventions / MDM: Differential diagnosis: Atypical chest pain Diagnosis considered but do not suspect: ACS however EKG with no ischemic findings troponin negative x 2. PE however D-dimer negative. My EKG interpretation: Sinus rate of 57, no ST or T wave changes. Imaging independently reviewed and interpreted by myself: 2 view chest x-ray: No acute process. Stable unchanged mild vascular congestion. External documents reviewed: N/A Test considered but not ordered:N/A ED course: Patient transition recurrent chest pain since yesterday. History of coronary disease. EKG sinus rhythm. Cardiac workup initiated. Reports sharp sensation rating the right side D-dimer also added. Troponin negative x 2 D-dimer negative. Chest x-ray obtained also negative. BNP normal at 86. Reassured on findings. He has a plan diagnostic cath early next month with his loin trimmer. Discussed negative workup this time however if recurrent worsening symptoms, return to the ED for reevaluation. Otherwise plan follow-up with his loin trimmer further testing as an outpatient. All questions were answered. Re-evaluation: stable Disposition discussed with patient/family/significant other: Patient Case discussed with consulting clinician: N/A This note was generated with [employer] dictation software. It may contain incorrect words, spelling, and punctuation that were not noted in checking the note before signing. Lab Data Attestation: I reviewed the patient's lab results. Labs: Laboratory Results - last 24 hr 05/09/25 05/09/25 00:07 02:18 WBC 7.7 RBC 4.97 Hgb 15.0 Hct 44.4 MCV 89.3 MCH 30.2 MCHC 33.8 RDW Std Deviation 43.5 RDW Coeff of Ang 13.3 Plt Count 221 MPV 9.7 Immature Gran % (Auto) 0.600 Neut % (Auto) 61.0 Lymph % (Auto) 24.3 [place] % (Auto) 9.3 Eos % (Auto) 3.9 Baso % (Auto) 0.9 Absolute Neuts (auto) 4.7 Absolute Lymphs (auto) 1.88 Nucleated RBC % 0 PT 12.8 INR 1.0 APTT 24.4 D-Dimer Quant (PE/DVT) 0.59 H* Sodium 140 Potassium 3.5 Chloride 105 Carbon Dioxide 24.1 Anion Gap 11 BUN 20 H Creatinine 1.25 H Estim Creat Clear Calc 74.15 Est GFR (MDRD) Non-Af 62 BUN/Creatinine Ratio 16.2 Glucose 88 Calcium 9.7 Troponin T High Sens 14 Troponin T Hi Sens 2 Hr 14 NT pro BNP II 86 Radiography Diagnostic Testing: Clinical Impression(s) from Imaging Studies Chest X-Ray 05/09/25 01:35 IMPRESSION: Unchanged cardiomegaly. Unchanged mild central pulmonary venous congestion. Reading Location: [place] [id number] Discharge Plan Triage Chief Complaint: Chest Pain ED Provider: Kenneth Redmond Dx/Rx/DC Orders Clinical Impression: Chest pain, CAD (coronary artery disease) Instructions: ED Chest Pain, Uncertain Cause Prescriptions: No Action gabapentin 300 mg capsule 300 mg PO QHS temazepam 15 mg capsule 15 mg PO QHS PRN (Reason: Sleep) trazodone 50 mg tablet 50 mg PO QHS escitalopram oxalate 20 mg tablet 20 mg PO DAILY isosorbide mononitrate 60 mg tablet extended release 24 hr 60 mg PO QDAY Qty: 90 3RF atorvastatin [Lipitor] 40 mg tablet 40 mg PO QDAY Qty: 90 3RF aspirin 81 MG tablet,chewable 81 mg PO QHS Patient Comments: TAKES WITH [place] TO PREVENT HOT FLASHES Rx Instructions: will stop 5 day prior desloratadine 5 mg tablet 5 mg PO DAILY PRN (Reason: allergy symptoms) finasteride 5 mg tablet 5 mg PO DAILY acetaminophen 500 mg Tablet 1,000 mg PO Q8 PRN (Reason: fever or pain) multivitamin [Daily Multi-Vitamin] Tablet 1 tab PO DAILY pantoprazole 40 mg tablet,delayed release (DR/EC) 40 mg PO DAILY Qty: 90 3RF clopidogrel [Plavix] 75 mg tablet 75 mg PO DAILY Qty: 90 3RF furosemide 40 mg tablet 40 mg PO BID Qty: 180 3RF Rx Instructions: water retention dapagliflozin propanediol [Farxiga] 10 mg tablet 10 mg PO DAILY Qty: 90 3RF carvedilol 25 mg tablet 25 mg PO BID Qty: 180 3RF potassium chloride 20 mEq tablet extended release 40 meq PO QDAY Qty: 180 3RF ramipril 10 mg capsule 10 mg PO DAILY Qty: 90 4RF Primary Care Provider: Speedy Boswell Referrals: Delilah Foster MD [Med Staff - Active Staff] - 3-5 Days Speedy Boswell MD [Primary Care Provider] - Activity Restrictions/Additional Instructions: Cardiac workup including D-dimer negative. Chest x-ray negative. BNP normal. Continue your home medications. Follow-up with your cardiology team for treatment as plan. You develop recurrent worsening symptoms, return to the ED for reevaluation. Print Language: Chinese Disposition Disposition: Home, Self Care
[2025-05-09 02:53] VITALS: BP 104/82; PULSE 57; RESP 16; TEMP 36.8; O2SAT 97
== END 2025-05-09 03:00 | disposition home or self-care (01) ==
PROVIDERS: Emergency Provider Emergency Medicine; PCP Family Medicine; Visit Provider Emergency Medicine
DX: R07.9 Chest pain, unspecified (principal); I11.0 Hypertensive heart disease with heart failure; I50.22 Chronic systolic (congestive) heart failure; E11.9 Type 2 diabetes mellitus without complications; Z79.02 Long term (current) use of antithrombotics/antiplatelets; I25.5 Ischemic cardiomyopathy; Z87.891 Personal history of nicotine dependence; Z82.49 Family history of ischemic heart disease and other diseases of the circulatory system; I25.10 Atherosclerotic heart disease of native coronary artery without angina pectoris; Z79.82 Long term (current) use of aspirin; E78.2 Mixed hyperlipidemia; Z86.16 Personal history of COVID-19; Z86.73 Personal history of transient ischemic attack (TIA), and cerebral infarction without residual deficits; Z99.89 Dependence on other enabling machines and devices; K21.9 Gastro-esophageal reflux disease without esophagitis; Z95.1 Presence of aortocoronary bypass graft; Z95.5 Presence of coronary angioplasty implant and graft; Z95.810 Presence of automatic (implantable) cardiac defibrillator
CPT/HCPCS: 71046; 80048; 83880; 84484; 85025; 85379; 85610; 85730; 93005; 99284; A4216

== ENCOUNTER → 2025-05-12 | Outpatient (CLI) | payer MEDICARE, SELFPAY ==
--- NOTE | 2025-05-12 15:12 | CT_ITS ---
PROCEDURE: CTA CHEST W/WO CONTRAST 05/12/2025 REASON FOR EXAM: Chest pain TECHNIQUE: CTA axial imaging of the chest with intravenous contrast. Multiplanar and multisequence images were obtained. PATIENT PREPARATION: Per protocol CONTRAST: 100 mL of Isovue 370 One or more dose reduction techniques were used (e.g., Automated exposure control, adjustment of the mA and/or kV according to patient size, use of iterative reconstruction technique). RADIATION DOSE SUMMARY: DLP: 809 mGycm COMPARISON: None FINDINGS: PULMONARY ARTERIES: Limited evaluation due to motion artifact and contrast bolus/timing. Evaluation of segmental and subsegmental branches are incomplete due to this limitation. No acute pulmonary emboli within the main or lobar branches. LUNGS AND PLEURA: Bibasilar subsegmental atelectasis. No focal consolidations. No definite pulmonary edema. No mass or nodule. No pleural effusion. No pneumothorax. MEDIASTINUM: No lymphadenopathy or mass. Mild cardiomegaly. Extensive coronary atherosclerosis. The aorta shows no acute findings. The pulmonary trunk, and branches of the vessels in the mediastinum are within normal limits. SUPRACLAVICULAR AND AXILLARY: No abnormalities seen in these regions. No mass or significant lymphadenopathy. UPPER ABDOMEN: The visualized upper abdomen is unremarkable. BONES AND SOFT TISSUES: The ribs are unremarkable. Median sternotomy wires. The visualized spine shows no significant acute findings. No focal bony mass lesions noted. The subcutaneous soft tissues are unremarkable. Left chest pacer. CT/CTA Chest W/WO Contrast IMPRESSION: Limited evaluation due to motion artifact and contrast bolus/timing. Evaluation of segmental and subsegmental branches are incomplete due to this li mitation. No acute pulmonary emboli within the main or lobar branches. No focal consolidations. Reading Location: [id number]
== END | disposition home or self-care (01) ==
LOC: CT 14:57
PROVIDERS: PCP Family Medicine; Referring Provider Family Medicine; Visit Provider Family Medicine
DX: R07.9 Chest pain, unspecified (principal)
CPT/HCPCS: 71275; Q9967

== ENCOUNTER → 2025-05-12 | Outpatient (CLI) | payer MEDICARE, SELFPAY ==
[2025-05-12 18:25] LABS: Microalbumin,Random Urine < 12.0 mg/L (NO RANGE EST.); Microalbumin:Creatinine Ratio UNABLE TO CALCULATE mg/g CRE
== END | disposition home or self-care (01) ==
LOC: MFPLAB 14:11
PROVIDERS: PCP Family Medicine; Referring Provider Family Medicine; Visit Provider Family Medicine
DX: I10 Essential (primary) hypertension (principal)
CPT/HCPCS: 82043; 82570

== ENCOUNTER → 2025-06-07 | Outpatient (CLI) | payer MEDICARE, SELFPAY ==
[2025-06-07 18:52] LABS: Cholesterol 122 mg/dL (<=200); Low Density Lipoprotein Calc. 68 mg/dL; Triglycerides 110 mg/dL; Very Low Density Lipoprotein 22 mg/dL (5-40); cholesterol:hdl ratio screen 3.84
== END | disposition home or self-care (01) ==
LOC: MFPLAB 14:25
PROVIDERS: PCP Family Medicine; Referring Provider Family Medicine; Visit Provider Family Medicine
DX: E11.9 Type 2 diabetes mellitus without complications (principal)
CPT/HCPCS: 36415; 80061

== ENCOUNTER → 2025-06-10 | Outpatient (CLI) | payer MEDICARE, SELFPAY ==
--- NOTE | 2025-06-10 06:59 | ECHOCS_ITS ---
Reason For Study Reason For Study: CAD/ASHD Procedure This was a 2D Doppler, Color Flow transthoracic echocardiogram. The study was technically difficult. Contrast injection was performed. Exam performed in department. Left Ventricle Normal size and thickness. Apical akinesis. Posterior basal hypokinesis. Estimated LVEF 35%. Stage I diastolic dysfunction. Right Ventricle Normal right ventricle. Atria The left and right atria are normal. Mitral Valve Trivial mitral valve insufficiency. Tricuspid Valve The tricuspid valve is not well visualized. Aortic Valve The aortic valve is not well visualized. There is no aortic stenosis. Pulmonic Valve The pulmonic valve is not well visualized. Great Vessels The aortic root is not well visualized. Pericardium/Pleural No pericardial effusion. Medication Diluted definity 2ml given slow IV push to enhance endocardial definition. MMode/2D Measurements & Calculations LAV(MOD-sp4): 34.4 ml SV(MOD-sp4): 49.9 ml LVAd ap4: 42.5 cm2 LVLd ap4: 9.7 cm SI(MOD-sp4): 20.9 ml/m2 EDV(MOD-sp4): 152.0 ml EDV(sp4-el): 157.4 ml LVAs ap4: 33.9 cm2 LVLs ap4: 9.2 cm ESV(MOD-sp4): 102.1 ml ESV(sp4-el): 106.4 ml EF(MOD-sp4): 32.8 % EF(sp4-el): 32.4 % SV(sp4-el): 50.9 ml LA A4 area: 14.5 cm2 RA A4 area: 16.0 cm2 Time Measurements MV dec time: 0.35 sec Doppler Measurements & Calculations MV E max armin: 46.9 cm/sec Lat Peak E' Armin: 8.7 cm/sec Med Peak E' Armin: 6.0 cm/sec MV A max armin: 67.9 cm/sec E/E' lat: 5.4 E/E' med: 7.8 MV E/A: 0.69 MV V2 max: 78.0 cm/sec MV dec slope: 136.0 cm/sec2 Ao V2 max: 114.1 cm/sec MV max P.4 mmHg Ao max P.2 mmHg MV V2 mean: 45.7 cm/sec Ao V2 mean: 79.8 cm/sec MV mean P.95 mmHg Ao mean P.9 mmHg MV V2 VTI: 37.8 cm Ao V2 VTI: 23.0 cm AV (velocity ratio): 1.1 LV V1 max: 108.3 cm/sec PA V2 max: 109.5 cm/sec LV V1 max P.7 mmHg LV V1 mean P.0 mmHg LV V1 mean: 81.8 cm/sec LV V1 VTI: 25.9 cm ECHO/Echo Complete W/ Contrast Interpretation Summary Technically difficult study with suboptimal images. Apical akinesis. Posterior basal hypokinesis. Estimated LVEF 35%. Stage I diast olic dysfunction. Ordering Physician: Delilah Foster Referring Physician: Delilah Foster Performed By: Sarah Lopez RCS
--- OUTSIDE RECORDS SUMMARY | 2025-06-10 07:03 | XMS RPT_ITS | CCD ---
Author Organization [facility] CliniSyfl Care Team Providers Care Giving Officer Name Role Phone JUANCHO Deng, Peg Demarco Unavailable Unavailable Speedy Boswell MD Primary Care Provider [phone] Daysi DORANTES, Arlene Gee Unavailable Alex CHAIREZ, Rizwana Woodson Unavailable Unavailable Rizwana Johnson LPN Unavailable Unavailable JUANCHO Deng, Peg Demarco Unavailable Unavailable JUANCHO Deng, Peg Demarco Unavailable Unavailable Speedy Mtz MD Unavailable Cary George MD Unavailable [phone] Chey Warren Unavailable Unavailable Chey Warren Unavailable Unavailable Lowell Otero MD Unavailable JUANCHO Deng, Peg Demarco Unavailable Unavailable Dr. Speedy Boswell Primary Care Provider Dr. Speedy Boswell Referring Provider Bethany Deng Attending Provider Unavailable Dr. Speedy Boswell Primary Care Provider Dr. Speedy Boswell Referring Provider Bethany Deng Attending Provider Unavailable Dr. Speedy Boswell Primary Care Provider Dr. Speedy Boswell Referring Provider MIKA Araujo Attending Provider [...] Provider Cristian, Dr. Mazariegos Other Provider Alonzo MECHANICS SUPERVISOR, ANGELC Jeffry Attending Provider Delilah Villagomez MD Unavailable Speedy Boswell MD Primary Care Provider DAVID RAMIREZ Attending Unavailable DELILAH VILLAGOMEZ Referring Unavailable BOSWELLSPEEDY MARSH Primary Care Unavailable CARMEN CHAVEZ Attending Unavailable [facility] Referring Un available SPEEDY BOSWELL Primary Care Unavailable SPEEDY BOSWELL Primary Care Unavailable ROSA MARIADAVID LE Attending Unavailable ROSA MARIADAVID LE Admitting Unavailable ROSA MARIADAVID LE Attending Unavailable ROSA MARIADAVID LE Admitting Unavailable BOSWELLSPEEDY Primary Care Unavailable Elbert, Dr. Ruff Primary Care Provider Cristian, Dr. Mazariegos Attending Provider Cristian, Dr. Mazariegos Referring Provider Cristian, Dr. Mazariegos Other Provider Alonzo CONLEY, JARVIS-Sen Fuentes Attending Provider Dr. Speedy Boswell Referring Provider Bethany Deng Attending Provider Unavailable Dr. Speedy Boswell Primary Care Provider Dr. Ge Tomlinson Attending Provider Dr. Ge Tomlinson Referring Provider KEL NIELSEN Attending Unavailable SPEEDY BOSWELL Primary Care Unavailable KEL NIELSEN Attending Unavailable SPEEDY BOSWELL Primary Care Unavailable Speedy Boswell MD Primary Care Provider Dr. Speedy Bsowell MD Primary Care Provider Dr. Ge Tomlinson MD Attending Provider Bushra DORANTES, Dr. Carolina Referring Provider Elbert DORANTES, Dr. Ruff Referring Provider [phone] Cristian DORANTES, Dr. Mazariegos Attending Provider Nyla BURR, Dr. Cooper Emergency Provider Nyla BURR, Dr. Cooper Attending Provider Elbert DORANTES, Dr. Ruff Attending Provider Elbert DORANTES, Dr. Ruff Primary Care Provider [phone] Bushra DORANTES, Dr. Carolina Attending Provider Bushra DORANTES, Dr. Carolina Referring Provider Elbert, Speedy Primary Care Unavailable Spittle, Renny Referring Unavailable Spittle, Renny Attending Unavailable Tereletsky, Jay Consulting Unavailable Spittle, Renny Admitting Unavailable Glory, Ravi Santiago Referring Unavailable Glory, Ravi Santiago Attending Unavailable Boswell, Speedy Primary Care Unavailable Boswell, Speedy Primary Care Unavailable Bushra, Ge Referring Unavailable Bushra, Ge Attending Unavailable Boswell, Speedy Primary Care Unavailable Serrano, Joce Attending Unavailable Boswell, Speedy Primary Care Unavailable Kenneth Redmond Attending Unavailable Boswell, Speedy Attending Unavailable Boswell, Speedy Primary Care Unavailable Boswell, Speedy Referring Unavailable Boswell, Speedy Attending Unavailable Boswell, Speedy Primary Care Unavailable Boswell, Speedy Referring Unavailable Boswell, Speedy Attending Unavailable Boswell, Speedy Primary Care Unavailable Boswell, Speedy Referring Unavailable Bushra, [place] Referring Unavailable Bushra, Ge Attending Unavailable Boswell, Speedy Primary Care Unavailable Boswell, Speedy Primary Care Unavailable Bushra, Ge Attending Unavailable Cristian, Delilah Referring Unavailable Cristian, Delilah Attending Unavailable Boswell, Speedy Primary Care Unavailable Boswell, Speedy Attending Unavailable Boswell, Speedy Primary Care Unavailable Boswell, Speedy Referring Unavailable Bushra, [place] Attending Unavailable Bushra, [place] Referring Unavailable Boswell, Speedy Primary Care Unavailable Bushra, Ge Attending Unavailable Bushra, Ge Referring Unavailable Boswell, Speedy Primary Care Unavailable Cristian, Delilah Attending Unavailable Boswell, Speedy Referring Unavailable Boswell, Speedy Primary Care Unavailable Boswell, Speedy Primary Care Unavailable Bushra, [place] Attending Unavailable Boswell, Speedy Primary Care Unavailable Renny James Referring Unavailable Jay Cruz Attending Unavailable Jay Cruz Consulting Unavailable Renny James Admitting Unavailable Renny James Consulting Unavailable Delilah Villagomez Attending Unavailable Elbert, Speedy Primary Care Unavailable Elbert, Speedy Referring Unavailable Elbert, Speedy Attending Unavailable Bosewll, Speedy Primary Care Unavailable Boswell, Speedy Referring Unavailable Boswell, Speedy Primary Care Unavailable Joce Serrano Attending Unavailable Elbert, Speedy Primary Care Unavailable Manuel Hart Attending Unavailable Medications Current Medications Medication Drug Class(es) Dates Sig (Normalized) Sig (Original) acetaminophen 500 mg oral tablet (13 sources) Start: 06-12-2024 End: 10-21-2024 take 2 [...] mg from all sources in 24 hours. atorvastatin 40 mg oral tablet (20 sources) HMG-CoA Reductase Inhibitor Start: 05-03-2025 take 1 tablet by mouth once daily Atorvastatin (Lipitor) 40 mg tablet Active 40 mg PO daily 90 May 03, 2025 12:00am Start: 01-06-2024 End: 01-07-2024 take 80 mg by mouth once daily at bedtime 80 mg, Oral, DAILY AT BEDTIME, First dose on Sat01/06/24 at 2100, Until Discontinued Start: 09-21-2020 End: 05-03-2025 take 1 tablet by mouth at bedtime Atorvastatin 80 mg tablet Discontinued 80 mg PO AT BEDTIME 90 December 03, 2024 11:49am May 03, 2025 5:54pm cholesterol Start: 01-08-2020 End: 09-21-2020 take 2 tablets by mouth at dinner Atorvastatin 40 mg tablet Discontinued 80 mg PO WITH DINNER January 08, 2020 3:18pm September 21, 2020 3:06pm cholesterol Start: 01-08-2020 End: 09-21-2020 take 80 mg by mouth at dinner Atorvastatin Discontinue d 80 MG PO WITH DINNER January 08, 2020 3:18pm September 21, 2020 3:06pm Start: 02-16-2011 End: 01-08-2020 take 1 tablet by mouth at dinner Atorvastatin 40 mg tablet Discontinued 40 mg PO WITH DINNER 30 December 30, 2018 12:28pm January 08, 2020 3:18pm cholesterol bisacodyl 10 mg rectal suppository (3 sources) Stimulant Laxative Start: 05-30-2021 bisacodyl ( DULCOLAX) suppository 20 mg Start: 05-28-2021 End: 06-30-2021 bisacodyl (DULCOLAX) [address] 1 suppository rectally daily as needed for Constipation 0 05/31/2021 06/30/2021 Active cetirizine hydrochloride 10 mg oral tablet (1 source) Histamine-1 Receptor Antagonist Start: 05-24-2021 take 10 mg by mouth once daily 10 mg, Oral, DAILY, First dose on Sat05/24/21 at 0900 Substituted for Loratadine (CLARITIN). desloratadine 5 mg oral tablet (5 sources) Histamine-1 Receptor Antagonist Start: 10-21-2024 take 1 [...] 02, 2014 1:00am April 14, 2019 8:40am depression Start: 11-02-2014 End: 04-14-2019 take 20 mg by mouth once daily Escitalopram Oxalate Di scontinued 20 MG PO DAILY November 02, 2014 1:00am April 14, 2019 8:40am finasteride 5 mg oral tablet (5 sources) 5-alpha Reductase Inhibitor Start: 10-21-2024 take 1 tablet by mouth once daily Finasteride 5 mg tablet Active 5 mg PO DAILY October 21, 2024 1:00am gabapentin 300 mg oral capsule (20 sources) Anti-epileptic Agent Start: 09-21-2020 End: 01-07-2024 take 1 capsule by mouth at bedtime Gabapentin 300 mg capsule Active 300 mg PO AT BEDTIME September 21, 2020 12:00am Rls Start: 01-06-2018 End: 09-21-2020 Gabapentin 600 mg tablet Discontinued 300 mg PO AT BEDTIME January 06, 2018 1:00am September 21, 2020 3:06pm restless legs Start: 01-06-2018 End: 09-21-2020 take 300 mg by mouth at bedtime Gabapentin Discontinue d 300 MG PO AT BEDTIME January 06, 2018 1:00am September 21, 2020 3:06pm Start: 06-19-2017 take 1 tablet by serafin th once daily HORIZANT 600 MG CR-TABS One tablet by mouth daily GABAPENTIN ENACARBIL [id number] Cary George MD Start: 05-04-2015 End: 01-10-2016 take 1 tablet by mouth once daily HORIZANT 600 MG CR-TABS One tablet by mouth daily GABAPENTIN LENORAIL [id number] Cary George MD 24 hr isosorbide mononitrate 60 mg extended release oral tablet (20 sources) Nitrate Vasodilator Start: 05-03-2025 take 1 tablet by mouth once daily, then take 1 tablet by mouth every twenty-four hours Isosorbide Mononitrate 60 mg tablet extended release 24 hr Active 60 mg PO daily 90 May 03, 2025 5:54pm blood pressure Start: 01-06-2024 End: 01-07-2024 60 mg, Oral, 2 TIMES DAILY, First dose on Sat01/06/24 at 2100, Until Discontinued Do not crush or chew. May be divided in half. Start: 05-24-2017 End: 05-03-2025 take 1 tablet by mouth twice daily, then take 1 tablet by mouth every twenty-four hours Isosorbide Mononitrate 60 mg tablet extended release 24 hr Discontinued 60 mg PO TWICE A DAY 180 December 25, 2024 9:01am May 03, 2025 5:56pm blood pressure Start: 10-24-2015 take 1 tablet by serafin th once daily ISOSORBIDE MONONITRATE ER 60 MG [id number] One tablet by mouth daily ISOSORBIDE MONONITRATE [id number] Ge Tomlinson MD Start: 10-07-2013 End: 10-24-2015 take 1 tablet by mouth twice daily IMDUR 60 MG [id number] One tablet by mouth twice daily ISOSORBIDE MONONITRATE [id number] Ge Tomlinson MD Start: 10-07-2013 take 1 tablet by serafin th twice daily IMDUR 60 MG [id number] One tablet by mouth twice daily ISOSORBIDE MONONITRATE [id number] Speedy Mtz MD Start: 10-07-2013 take 1 tablet by serafin th twice daily IMDUR 60 MG [id number] One tablet by mouth twice daily ISOSORBIONA Mtz MD Start: 10-07-2013 End: 10-24-2015 take 1 tablet by mouth twice daily IMDUR 60 MG [id number] One tablet by mouth twice daily ANAIDSORBIDE MONONITRATE Ge Tomlinson MD Start: 10-05-2013 End: 01-10-2016 take 1 tablet by mouth twice daily Isosorbide Mononitrate 60 MG tablet Discontinued 60 mg PO TWICE A DAY October 05, 2013 1:00am January 07, 2016 1:54pm Start: 08-27-2013 take 1 tablet by serafin th twice daily IMDUR 30 MG [id number] One tablet by mouth twice daily ISOSORBIDE MONONITRATE [id number] Speedy Mtz MD Start: 08-27-2013 take 1 tablet by serafin th twice daily IMDUR 30 MG [id number] One tablet by mouth twice daily ISOSORBIDE MONONITRATE [id number] Speedy Mtz MD Start: 08-27-2013 take 1 tablet by serafin th twice daily IMDUR 30 MG [id number] One tablet by mouth twice daily ISOSORBIDE MONONITRATE [id number] Speedy Mtz MD Start: 07-01-2013 take 1 tablet by serafin th once daily IMDUR 30 MG [id number] One tablet by mouth daily ISOSORBIDE MONONITRATE [id number] Divina Giles PA-C Start: 07-01-2013 take 1 tablet by serafin th once daily IMDUR 30 MG [id number] One tablet by mouth daily ISOSORBIDE MONONITRATE [id number] Divina Giles PA-C Start: 07-01-2013 take 1 tablet by serafin th once daily IMDUR 30 MG [id number] One tablet by mouth daily ISOSORBIDE MONONITRATE [id number] Divina Giles PA-C LORazepam 0.5 mg oral [...] daily. 0 Active Multivitamin (Daily Multi-Vitamin) tablet (5 sources) Start: 4 Multivitamin (Daily Multi-Vitamin) tablet Active 1 {tbl} PO DAILY May 27, 2024 12:00am 24 hr niacin 500 mg extended release oral tablet (20 sources) Nicotinic Acid Start: take 1000 mg by mouth once daily 1,000 mg, Oral, NIGHTLY, First dose on Sat05/24/21 at 2100 Do not crush or break. Start: 10-05-2013 End: 09-21-2020 take 1 tablet by mouth every twenty-four hours at bedtime Niacin 1,000 mg tablet extended release 24 hr Discontinued 1000 mg PO AT BEDTIME 30 June 03, 2019 12:47pm September 21, 2020 3:07pm supplement/heart On Hold: financial concerns Start: 02-16-2011 End: 09-21-2020 take 1 tablet by mouth at bedtime Niacin 1,000 MG tablet Discontinued 1000 mg PO AT BEDTIME October 05, 2013 1:00am June 03, 2019 12:48pm potassium chloride 20 meq extended release oral tablet (20 sources) Start: 01-06-2024 End: 01-07-2024 Potassium chloride (K-DUR) tablet ER 40-60 mEq Start: 01-06-2024 End: 01-07-2024 Potassium chloride (K-DUR) t ablet ER 20 mEq Start: 05-24-2021 40 mEq, Oral, DAILY, First dose on Sat05/24/21 at 0900 Do not crush, chew, or suck on tablet. Tablet may also be broken in half and each half swallowed separately. Start: 04-25-2019 take 2 tablets by mo mah once daily potassium chloride (KLOR-CON M) 20 MEQ extended release tablet Take 2 tablets by mouth daily 60 tablet 5 04/25/2019 Active Start: 01-08-2018 End: 02-23-2025 take 2 tablets by mouth once daily Potassium Chloride 20 mEq tablet extended release Discontinued 40 meq PO daily 180 3 August 09, 2023 9:46am February 23, 2025 8:08pm supplement Start: 01-08-2018 End: 08-09-2023 take 40 mEq [...] Start: 12-10-2011 take 2 tablets by mo uth once daily KLOR-CON M20 20 MEQ CR-TABS Two tablets by mouth daily POTASSIUM CHLORIDE NISHANT CR [id number] Jay Singh DIGITAL PHOTOGRAPHER-C Start: 12-10-2011 take 1 tablet by serafin th once daily KLOR-CON M20 20 MEQ CR-TABS One tablet by mouth daily POTASSIUM CHLORIDE NISHANT CR [id number] Speedy Mtz MD Start: 02-16-2011 take 1 tablet by serafin th once daily POTASSIUM CHLORIDE 20 MEQ PACK One tablet by mouth daily POTASSIUM CHLORIDE [id number] Opal Lees Start: 02-16-2011 take 1 tablet by serafin th once daily KLOR-CON M20 20 MEQ CR-TABS One tablet by mouth daily POTASSIUM CHLORIDE NISHANT CR [id number] Speedy Mtz MD Start: 02-16-2011 take 1 tablet by serafin th once daily POTASSIUM CHLORIDE 20 MEQ PACK One tablet by mouth daily POTASSIUM CHLORIDE [id number] Opal Lees 12 hr ranolazine 500 mg extended release oral tablet (20 sources) Anti-anginal Start: 05-24-2021 take 1000 mg by mouth twice daily 1,000 mg, Oral, 2 TIMES DAILY, First dose on Sat05/24/21 at 0215 Do not crush or break. Start: 02-24-2014 End: 06-01-2015 take 1 tablet by mouth twice daily Ranolazine 500 MG tablet Discontinued 500 mg PO TWICE A DAY 180 0 February 24, 2014 12:00am June 01, 2015 10:32am Start: 02-24-2014 End: 09-21-2020 take 1 tablet by mouth twice daily Ranolazine 1,000 mg tablet extended release 12 hr Discontinued 1000 mg PO TWICE A DAY 180 February 03, 2020 6:08pm September 21, 2020 3:07pm heart On Hold: [facility] Start: 02-24-2014 take 1 tablet by serafin th twice daily RANEXA 500 MG [id number] One tablet by mouth twice daily RANOLAZINE [id number] Divina Giles PA-C Start: 10-05-2013 End: 12-04-2013 take 1 tablet by mouth twice daily Ranolazine 500 MG tablet Discontinued 500 mg PO TWICE A DAY October 05, 2013 1:00am December 04, 2013 1:34am Start: 06-17-2013 End: 10-28-2013 take 1 tablet by mouth twice daily RANEXA 500 MG [id number] One tablet by mouth twice daily RANOLAZINE [id number] Divina Giles, PAFedeC sennoelmas, [facility] 8.6 mg oral tablet (4 sources) Start: [...] 24, 2017 12:00am September 21, 2020 3:08pm sleep Start: 05-24-2017 End: 09-21-2020 take 15 mg by mouth at bedtime Temazepam Discontinued 15 MG PO AT BEDTIME May 24, 2017 12:00am September 21, 2020 3:08pm Start: 01-11-2016 take 1 tablet by serafin once daily RESTORIL 30 MG CAPS One tablet by mouth daily every night TEMAZEPAM [id number] Arlene Tavarez MD Start: 07-16-2014 End: 01-10-2016 take 1 tablet by mouth once daily at bedtime as needed TEMAZEPAM 15 MG CAPS One tablet by mouth daily at bedtime as needed TEMAZEPAM [id number] Val Henley RN traZODone hydrochloride 50 mg oral tablet (16 sources) Serotonin Reuptake Inhibitor Start: 03-22-2021 End: 01-07-2024 take 1 tablet by mouth at bedtime Trazodone 50 mg tablet Active 50 mg PO AT BEDTIME March 22, 2021 12:00am sleep Completed/Discontinued Medications Medication Drug Class(es) Dates Sig (Normalized) Sig (Original) acetaminophen 325 mg / HYDROcodone bitartrate 5 mg oral tablet (20 sources) Opioid Agonist Start: 10-05-2020 End: 10-12-2020 take 1-10 tablets by mouth every four hours as needed for pain Hydrocodone-Acetami nophen 1 EACH tablet Discontinued 1 NMA PO EVERY 4 HOURS NEEDED as needed for Pain 1-10 Or Fever 20 7 0 October 05, 2020 October 11, 2020 1:00am October 12, 2020 1:02am Personal history of urinary calculi Start: 10-05-2020 End: 10-12-2020 Hydrocodone-Acetaminophen Di scontinued 1 EACH PO EVERY 4 HOURS NEEDED 20 7 October 05, 2020 October 12, 2020 1:02am Start: 08-05-2019 End: 08-14-2019 Hydrocodone-Acetaminophen 1 EACH tablet Discontinued 1 NMA PO EVERY 4 HOURS NEEDED as needed for Pain 14 5 0 August 05, 2019 August 09, 2019 12:00am August 14, 2019 12:10am Personal history of urinary calculi Start: 08-05-2019 End: 08-14-2019 Hydrocodone-Acetaminophen Di scontinued 1 EACH PO EVERY 4 HOURS NEEDED 14 5 August 05, 2019 August 14, 2019 12:10am Start: 06-26-2019 End: 07-04-2019 Hydrocodone-Acetaminophen 1 EACH tablet Discontinued 1 NMA PO EVERY 6 HOURS NEEDED as needed for Pain 20 7 0 June 26, 2019 July 02, 2019 12:00am July 04, 2019 12:09am Personal history of urinary calculi Start: 06-26-2019 End: 07-04-2019 Hydrocodone-Acetaminophen Di scontinued 1 EACH PO EVERY 6 HOURS NEEDED 20 7 June 26, 2019 July 04, 2019 12:09am Start: 10-02-2018 End: 10-05-2018 Hydrocodone-Acetaminophen 1 TABLET tablet Discontinued 1 {tbl} PO EVERY 6 HOURS NEEDED as needed for Pain 10 3 0 October 02, 2018 12:00am October 04, 2018 12:00am October 05, 2018 12:14am Lymphedema of right lower extremity Lymphedema, not elsewhere classified Start: 10-02-2018 End: 10-05-2018 take 1 tablet by mouth every six hours as needed Hydrocodone-Acetaminophen Discontinued 1 TABLET PO EVERY 6 HOURS NEEDED 10 October 02, 2018 12:00am October 05, 2018 12:14am Start: 02-16-2011 VICODIN 5-500 MG TABS As needed HYDROCODONE-ACETAMINOPHEN [id number] Opal Lees Start: 02-16-2011 End: 12-10-2011 VICODIN 5-500 MG TABS As nee ded HYDROCODONE-ACETAMINOPHEN [id number] Khris Spencer MD Start: 02-16-2011 VICODIN 5-500 MG TABS As needed HYDROCODONE-ACETAMINOPHEN [id number] Opal Lees Start: 02-16-2011 End: 12-10-2011 VICODIN 5-500 MG TABS As nee ded HYDROCODONE-ACETAMINOPHEN [id number] Khris Spencer MD acetaminophen 325 mg / oxyCODONE hydrochloride 5 mg oral tablet (5 sources) Opioid Agonist Start: 10-21-2024 End: 05-09-2025 Oxycodone-Acetaminophen (Percocet) 5-325 mg tablet Discontinued 1 {tbl} PO EVERY 6 HOURS as needed for pain 12 3 0 October 21, 2024 May 09, 2025 12:10am Calculus of kidney Calculus of kidney aluminum hydroxide 40 mg/ml / magnesium hydroxide 40 mg/ml / simethicone 4 mg/ml oral suspension (1 source) Start: 01-06-2024 End: 01-07-2024 take 30 mL by mouth every six hours as needed alum/mag hydrox.-simethicone oral suspension 30 mL amoxicillin 875 mg / clavulanate 125 mg oral tablet (14 sources) Penicillin-class Antibacterial Start: 05-28-2017 End: 06-10-2017 take 1 tablet by mouth every twelve hours Amoxicillin-Pot Clavulanate 875 MG tablet Discontinued 875 mg PO Q12H 10 May 28, 2017 12:00am June 10, 2017 10:49am aspirin 81 mg chewable tablet (20 sources) Platelet Aggregation Inhibitor, Nonsteroidal Anti-inflammatory Drug Start: 05-24-2021 aspirin EC tablet 81 mg Start: 06-19-2017 take 1 tablet by serafin th once daily ADULT ASPIRIN EC LOW STRENGTH 81 MG TBEC One tablet by mouth daily ASPIRIN [id number] Cary George MD Start: 06-09-2017 End: 10-21-2024 take 1 tablet by mouth twice daily Aspirin 81 mg Tablet,Chewable Discontinued 81 mg PO TWICE A DAY 28 14 0 June 12, 2024 12:00am October 21, 2024 1:23am Start: 06-09-2017 End: 01-07-2024 take 1 tablet [...] 2013 1:00am May 28, 2017 2:35pm Start: 10-05-2013 End: 05-28-2017 take 1 tablet by mouth at bedtime Aspirin 81 MG Tab.Chew Discontinued 81 mg PO AT BEDTIME October 05, 2013 1:00am May 28, 2017 2:35pm Start: 10-21-2012 take 1 tablet by serafin th once daily ADULT ASPIRIN EC LOW STRENGTH 81 MG TBEC One tablet by mouth daily ASPIRIN [id number] Cary George MD Start: 02-16-2011 take 1 tablet by serafin th once daily ASPIRIN 325 MG TABS One tablet by mouth daily ASPIRIN [id number] Opal Lees aspirin 81 MG ta blet [...] MCG/ACT SUSP (0.032mg/inh) Take as directed BUDESONIDE [id number] Opal Lees 12 hr buPROPion hydrochloride 150 mg extended release oral tablet (16 sources) Aminoketone Start: 01-08-2018 End: 05-27-2024 take 1 tablet by mouth twice daily Bupropion Hcl 150 mg tablet extended release 12 hr Discontinued 150 mg PO TWICE A DAY January 08, 2018 1:00am May 27, 2024 10:30am Depression calcium chloride 0.0014 meq/ml / potassium chloride 0.004 meq/ml / sodium chloride 0.103 meq/ml / sodium lactate 0.028 meq/ml injectable solution (1 source) Start: 05-24-2021 End: 05-25-2021 Intravenous, at 75 mL/hr, CONTINUOUS, Starting on Sat05/24/21 at 0215 carvedilol 25 mg oral tablet (20 sources) alpha-Adrenergic Sasha, beta-Adrenergic Sasha Start: 04-25-2019 take 3.125 mg by mouth twice daily at mealtime 3.125 mg, Oral, 2 TIMES DAILY WITH MEALS, First dose on Sat05/24/21 at 0800 Administer with food to minimize the risk of orthostatic hypotension Start: 05-24-2017 End: 12-25-2024 take 1 tablet by mouth twice daily Carvedilol 25 mg tablet Discontinued 25 mg PO TWICE A DAY 180 November 26, 2023 4:44pm December 25, 2024 9:00am heart Start: 10-20-2013 COREG 12.5 MG TABS twice daily CARVEDILOL [id number] Екатерина Griggs RN Start: 02-16-2011 End: 01-10-2016 take 1 tablet by mouth twice daily Carvedilol 25 MG tablet Discontinued 25 mg PO TWICE A DAY October 05, 2013 1:00am January 07, 2016 1:53pm ceFAZolin (ANCEF) 3,000 mg in dextrose 5 % 100 mL IVPB (1 source) Start: 05-24-2021 End: 05-25-2021 3,000 mg, Intravenous, EVERY 8 HOURS, 2 doses, First dose on Sat05/24/21 at 2300, Last dose on Sat05/25/21 at 0700 ciprofloxacin 500 mg oral tablet (19 sources) Quinolone Antimicrobial Start: 11-18-2024 End: 05-03-2025 take 1 tablet by mouth twice daily Ciprofloxacin Hcl (Cipro) 500 mg tablet Discontinued 500 mg PO TWICE A DAY 10 November 18, 2024 1:00am May 03, 2025 [...] One tablet by mouth daily CITALOPRAM HYDROBROMIDE [id number] Val Henley RN clindamycin 150 mg oral capsule (14 sources) Lincosamide Antibacterial Start: 02-12-2019 End: 04-14-2019 take 2 capsules by mouth three times daily Clindamycin Hcl 150 MG capsule Discontinued 300 mg PO THREE TIMES A DAY 60 0 February 12, 2019 12:00am April 14, 2019 8:40am Start: 02-12-2019 End: 04-14-2019 take 300 mg by mouth three times daily Clindamycin Hcl Discontinued 300 MG PO THREE TIMES A DAY 60 February 12, 2019 12:00am April 14, 2019 8:40am clopidogrel 75 mg oral tablet (20 sources) [id number] Platelet Inhibitor Start: 05-18-2020 End: 03-22-2021 Clopidogrel 75 mg tablet Discontinued 75 mg PO DAILY 90 3 May 18, 2020 2:08pm March 22, 2021 2:44pm prevent blood clots will stop 7 days prior Start: 10-16-2013 End: 10-12-2024 take 1 tablet by mouth once daily Clopidogrel (Plavix) 75 mg tablet Discontinued 75 mg PO DAILY 90 3 September 11, 2023 8:06am October 12, 2024 9:39am blood clots clotrimazole 10 mg oral lozenge (20 sources) Azole Antifungal Start: 01-10-2016 End: 06-01-2016 CLOTRIMAZOLE 10 MG TROC 5 x day CLOTRIMAZOLE [id number] Wilda Wise clotrimazole (LO TRIMIN) 1 % cream Apply topically as needed Apply topically 2 times daily. 0 Active dapagliflozin 10 mg oral tablet (15 sources) Sodium-Glucose Cotransporter 2 Inhibitor Start: 05-21-2024 End: 12-10-2024 take 1 tablet by mouth once daily Dapagliflozin Propanediol (Farxiga) 10 mg tablet Discontinued 10 mg PO DAILY 30 September 21, 2024 2:57pm December 10, 2024 11:32am docusate sodium 100 mg oral capsule (5 [...] twice daily for 10 days DOXYCYCLINE HYCLATE [id number] Jeffry Larsen CNP 0.4 ml enoxaparin sodium 100 [...] One tablet by mouth daily ESOMEPRAZOLE MAGNESIUM [id number] Opal Lees etodolac 400 mg oral tablet (20 sources) Nonsteroidal Anti-inflammatory Drug Start: 07-16-2014 End: 01-10-2016 take 1 tablet by mouth twice daily as needed ETODOLAC 400 MG TABS One tablet by mouth twice daily as needed [facility] [id number] Val Henley RN fexofenadine hydrochloride 180 mg oral tablet (8 sources) Histamine-1 Receptor Antagonist Start: 03-27-2023 End: 10-21-2024 take 1 tablet by mouth once daily Fexofenadine ([facility]ana Allergy) 180 mg tablet Discontinued 180 mg PO DAILY March 27, 2023 12:00am October 21, 2024 1:26am fluconazole 200 mg oral tablet (16 sources) Azole Antifungal Start: 01-11-2016 End: 01-16-2016 take 1 tablet by mouth once daily FLUCONAZOLE 200 MG TABS 1 po q d FLUCONAZOLE [id number] Arlene Tavarez MD furosemide 40 mg oral tablet (20 sources) Loop Diuretic Start: 05-24-2021 End: 05-26-2021 take 80 mg by mouth once daily 80 mg, Oral, NIGHTLY, First dose on Sat05/24/21 at 2100 Start: 08-20-2019 End: 10-19-2024 take 1 tablet by mouth twice daily Furosemide 40 mg tablet Discontinued 40 mg PO TWICE A DAY 180 3 September 27, 2023 8:05am October 19, 2024 9:35am water retention Start: 04-25-2019 take 2 tablets by mo [facility] [place] once daily furosemide (LASIX) 40 MG tablet Take 2 tablets by mouth nightly 60 tablet 3 04/25/2019 Active Start: 02-06-2019 End: 04-16-2019 take 1 tablet by mouth once daily in the morning Furosemide 80 MG tablet Discontinued 80 mg PO EVERY MORNING 0 February 06, 2019 1:00am April 16, 2019 2:34pm Start: 07-11-2018 End: 02-06-2019 take 2 tablets by mouth once daily in the morning Furosemide 40 MG tablet Discontinued 80 mg PO DAILY July 11, 2018 2:46pm February 06, 2019 2:57pm diuretic take in morning Start: 07-11-2018 End: 02-06-2019 [...] 24, 2017 12:00am June 16, 2018 2:13pm diuretic Start: 05-24-2017 End: 07-11-2018 take 1 tablet by mouth in the evening Furosemide 40 mg tablet Discontinued 40 mg PO .COMPLEX 270 3 June 16, 2018 2:14pm July 11, 2018 2:46pm diuretic 40 mg PO 2 tablets by mouth [...] Two tablets by mouth twice daily FUROSEMIDE [id number] Divina Giles PA-C Start: 10-05-2013 End: 01-07-2016 take 2 tablets by mouth once daily Furosemide 40 MG tablet Discontinued 80 mg PO DAILY October 05, 2013 1:00am January 07, 2016 1:53pm Start: 10-05-2013 End: 01-07-2016 take 80 mg by mouth once daily Furosemide Discontinued 80 MG PO DAILY October 05, 2013 1:00am January 07, 2016 1:53pm Start: 02-16-2011 take 1 tablet by serafin once daily FUROSEMIDE 40 MG TABS One tablet by mouth daily FUROSEMIDE [id number] Cary George MD 1 ml HYDROmorphone hydrochloride 1 mg/ml [...] tablet by serafin th once daily KLOR-CON 20 CR-TABS (POTASSIUM CHLORIDE CR-TABS) One tablet by mouth daily Speedy Mtz MD levocetirizine dihydrochloride 5 mg oral tablet (9 sources) Histamine-1 Receptor Antagonist Start: 06-19-2017 take 1 tablet by mouth once daily LEVOCETIRIZINE DIHYDROCHLORIDE 5 MG TABS One tablet by mouth daily LEVOCETIRIZINE DIHYDROCHLORIDE [id number] Cary George MD levoFLOXacin 500 mg oral tablet (16 sources) Quinolone Antimicrobial Start: 01-07-2016 End: 01-14-2016 take 1 tablet by mouth once daily LEVAQUIN 500 MG TABS One tablet by mouth daily LEVOFLOXACIN [id number] Wilda Anjelica Tullashabnam 10 ml lidocaine hydrochloride 10 mg/ml injection [...] 26, 2019 1:00am March 27, 2023 1:35pm allergies Start: 10-05-2013 End: 10-13-2013 take 1 tablet [...] 24, 2017 12:00am February 06, 2019 2:57pm pain Start: 06-01-2015 End: 01-07-2016 take 1 tablet [...] 05, 2013 1:00am April 14, 2019 8:42am allergies MULTIPLE VITAMIN (1 source) Start: 02-16-2011 take 1 tablet by mouth once daily MULTIVITAMINS TABS One tablet by mouth daily MULTIPLE VITAMIN [id number] Opal Lees MULTIPLE VITAMIN (15 sources) Start: 02-16-2011 take 1 tablet by mouth once daily MULTIVITAMINS TABS One tablet by mouth daily MULTIPLE VITAMIN [id number] Opal Lees naproxen 500 mg oral tablet (20 sources) Nonsteroidal Anti-inflammatory Drug Start: 02-16-2011 End: 07-16-2014 take 1 tablet by mouth twice daily NAPROXEN 500 MG TABS One tablet by mouth twice daily NAPROXEN [id number] Opal Lees 24 hr nicotine 0.583 mg/hr transdermal system (20 sources) Cholinergic Nicotinic Agonist Start: 12-14-2016 End: 06-19-2017 NICODERM CQ 14 MG/24HR PT24 Apply once a day for 2 weeks or as directed NICOTINE [id number] Cary George MD nitroglycerin 0.4 mg sublingual tablet (20 sources) Nitrate Vasodilator Start: 10-17-2022 End: 10-21-2024 Nitroglycerin 0.4 mg tablet, sublingual Discontinued 0.4 mg SL Q5M as needed for chest pain 23 02October 17, 2022 1:00am October 21, 2024 1:26am [...] 3 as needed for chest pain. NITROGLYCERIN [id number] Ginny Alanis RN nystatin 738794 unt/ml oral suspension (20 sources) Polyene Antifungal Start: 06-19-2017 End: 01-08-2018 take [id number] [IU] by mouth three times daily Nystatin 100,000 UNIT/ML suspension Discontinued [id number] U PO THREE TIMES A DAY July 30, 2017 12:00am January 08, 2018 3:34pm Start: 01-07-2016 End: 06-01-2016 NYSTATIN 538184 UNIT/GM POWD three times a day NYSTATIN [id number] Wilda Wise Start: 01-07-2016 End: 06-01-2016 NYSTATIN 568478 UNIT/GM POWD three times a day NYSTATIN [id number] Wilda Wise omeprazole 40 mg delayed release oral capsule (20 sources) Proton Pump Inhibitor Start: 10-21-2012 End: 01-10-2016 take 1 tablet by mouth once daily OMEPRAZOLE 40 MG CPDR One tablet by mouth daily OMEPRAZOLE [id number] Wilda Evanslashabnam Start: 05-03-2011 take 1 tablet by serafin th once daily OMEPRAZOLE 20 MG CPDR One tablet by mouth daily OMEPRAZOLE [id number] Opal Lees Start: 02-16-2011 End: 01-08-2018 take 1 capsule by mouth twice daily Omeprazole 40 MG capsule Discontinued 40 mg PO TWICE A DAY October 05, 2013 1:00am January 08, 2018 12:09pm 2 ml ondansetron 2 mg/ml injection (16 sources) Serotonin-3 Receptor Antagonist Start: 01-06-2024 End: [...] 04, 2017 1:00am January 08, 2018 12:09pm oxyCODONE hydrochloride 5 mg oral tablet (20 sources) Opioid Agonist Start: 11-18-2024 End: 05-09-2025 take 1 tablet by mouth every six hours as needed for pain Oxycodone 5 mg tablet Discontinued 5 mg PO EVERY 6 HOURS as needed for pain 14 3 0 November 18, 2024 May 09, 2025 12:10am Small left kidney Small kidney, unilateral Start: 01-06-2024 End: 01-07-2024 take 1 tablet [...] needed for Severe Pain (6-10/10) 30 5 0 February 06, 2019 1:00am February 10, 2019 12:00am February 11, 2019 12:08am pantoprazole 40 mg delayed release oral tablet (20 sources) Proton Pump Inhibitor Start: 01-08-2020 End: 01-08-2020 take 1 tablet by mouth twice daily Pantoprazole 40 mg tablet,delayed release (DR/EC) Discontinued 40 mg PO TWICE A DAY 60 0 January 08, 2020 3:51pm January 08, 2020 3:52pm Presence of coronary angioplasty implant and graft gerd Start: 01-08-2018 End: 09-21-2024 take 1 tablet by mouth once daily Pantoprazole 40 mg tablet,delayed release (DR/EC) Discontinued 40 mg PO DAILY 30 11 January 08, 2020 3:51pm September 21, 2024 10:16am Presence of coronary angioplasty implant and graft gerd Start: 07-08-2017 take 1 tablet by serafin twice daily PROTONIX 40 MG TBEC One tablet by mouth twice daily PANTOPRAZOLE SODIUM [id number] Cary George MD take 40 mg by mouth once daily before breakfast pantoprazole sodium (PROTONIX) 40 MG PACK packet Take 40 mg by mouth every morning (before breakfast) 0 Active 2 ml penicillin g benzathine 229198 unt/ml / penicillin g procaine 263307 unt/ml prefilled syringe (14 sources) Penicillin-class Antibacterial Start: 07-11-2018 End: 04-14-2019 Penicillin G Benzathin,Procain 1,200,000 UNIT/2 ML syringe Discontinued [id number] U IM EVERY MONTH July 11, 2018 12:00am April 14, 2019 8:42am infection polyethylene glycol 3350 07517 mg powder for oral solution (20 sources) [...] mouth twice daily (0.25) POLYETHYLENE GLYCOL 3350 [id number] Opal Lees Start: 02-16-2011 End: 12-10-2011 take 1 tablet by mouth twice daily MIRALAX PACK One tablet by mouth twice daily (0.25) POLYETHYLENE GLYCOL 3350 [id number] Khris Spencer MD Start: 02-16-2011 take 1 tablet by serafin th twice daily MIRALAX PACK One tablet by mouth twice daily (0.25) POLYETHYLENE GLYCOL 3350 [id number] Opal Lees Start: 02-16-2011 End: 12-10-2011 take 1 tablet by mouth twice daily MIRALAX PACK One tablet by mouth twice daily (0.25) POLYETHYLENE GLYCOL 3350 [id number] Khris Spencer MD POLYETHYLENE GLYCOL 3350 (2 sources) Start: 02-16-2011 End: 12-10-2011 take 1 tablet by mouth twice daily MIRALAX PACK One tablet by mouth twice daily (0.25) POLYETHYLENE GLYCOL 3350 [id number] Khris Spencer MD Start: 02-16-2011 take 1 tablet by serafin th twice daily MIRALAX PACK One tablet by mouth twice daily (0.25) POLYETHYLENE GLYCOL 3350 [id number] Opal Lees pramipexole dihydrochloride 0.5 mg oral tablet (20 sources) Nonergot Dopamine Agonist Start: 12-10-2011 End: 05-04-2015 take 2 tablets by mouth at bedtime MIRAPEX 0.125 MG TABS 2 tablets by mouth at bedtime PRAMIPEXOLE DIHYDROCHLORIDE [id number] Speedy Mtz MD Start: 12-10-2011 take 1 tablet by serafin th at bedtime MIRAPEX 0.5 MG TABS One tablet by mouth at bedtime. PRAMIPEXOLE DIHYDROCHLORIDE [id number] Khris Spencer MD predniSONE 20 mg oral tablet (15 sources) Start: 06-29-2024 End: 11-04-2024 take 2 tablets by mouth once daily Prednisone 20 mg tablet Discontinued 40 mg PO DAILY 8 June 29, 2024 12:00am November 04, 2024 3:36pm Start: 10-27-2022 End: 05-27-2024 take 2 tablets by mouth once daily Prednisone 20 mg tablet Discontinued 40 mg PO DAILY 10 October 27, 2022 1:00am May 27, 2024 11:08am Start: 10-27-2022 take 40 mg by mouth once daily Prednisone Active 40 MG PO DAILY 10 October 27, 2022 1:00am pseudoephedrine hydrochloride 30 mg oral tablet (20 sources) alpha-Adrenergic Agonist Start: 07-16-2014 End: 08-03-2015 take 30 mg by mouth twice daily Sudogest Discontinued 30 mg PO TWICE A DAY November 02, 2014 1:00am April 05, 2015 9:02am ramipril 10 mg oral capsule (20 sources) Angiotensin Converting Enzyme Inhibitor Start: 03-27-2023 End: 04-15-2025 take 1 capsule by mouth once daily Ramipril 10 mg capsule Discontinued 10 mg PO DAILY April 06, 2024 8:40am April 15, 2025 8:36am Start: 03-22-2021 End: 03-27-2023 take 1 capsule by mouth twice daily Ramipril 2.5 mg capsule Discontinued 2.5 mg PO TWICE A DAY 180 4 December 10, 2022 2:04pm March 27, 2023 1:52pm Start: 06-24-2018 End: 03-22-2021 take 1 capsule by mouth once daily Ramipril 2.5 mg capsule Discontinued 2.5 mg PO DAILY 90 4 September 23, 2020 4:17pm March 22, 2021 2:47pm Start: 01-08-2018 End: 06-24-2018 take 2.5 mg by mouth once daily Ramipril 5 MG capsule Discontinued 2.5 mg PO DAILY January 08, 2018 3:28pm June 24, 2018 4:48pm heart Start: 01-08-2018 End: 06-24-2018 take 2.5 mg by mouth once daily Ramipril Discontinued 2.5 MG PO DAILY January 08, 2018 3:28pm June 24, 2018 4:48pm Start: 06-19-2017 ALTACE 2.5 MG CAPS .11 RAMIPRIL [id number] Cary George MD Start: 01-07-2014 End: 01-08-2018 take 1 capsule by mouth once daily Ramipril 5 MG capsule Discontinued 5 mg PO DAILY 30 0 January 07, 2016 1:00am January 08, 2018 3:35pm Start: 01-07-2014 ALTACE 5 MG CA PS on hold 04/29 RAMIPRIL [id number] Екатерина Griggs RN Start: 01-07-2014 take 1 tablet by serafin th twice daily ALTACE 10 MG CAPS One tablet by mouth twice daily RAMIPRIL [id number] Ginny Alanis RN Start: 01-07-2014 take 1 tablet by serafin th once daily ALTACE 2.5 MG CAPS One tablet by mouth daily RAMIPRIL [id number] Divina Giles PA-C Start: 10-05-2013 End: 01-07-2016 take 2 capsules by mouth twice daily Ramipril 5 MG capsule Discontinued 10 mg PO TWICE A DAY October 05, 2013 1:00am January 07, 2016 1:54pm Start: 10-05-2013 End: 01-07-2016 take 10 mg by mouth twice daily Ramipril Discontinued 10 MG PO TWICE A DAY October 05, 2013 1:00am January 07, 2016 1:54pm Start: 02-16-2011 take 1 tablet by serafin twice daily ALTACE 5 MG CAPS One tablet by mouth twice daily RAMIPRIL [id number] Val Henley RN silodosin 8 mg oral capsule (20 sources) alpha-Adrenergic Sasha Start: 11-06-2013 End: 01-10-2015 take 1 tablet by mouth at bedtime RAPAFLO 8 MG CAPS One tablet by mouth at bedtime. SILODOSIN [id number] Speedy Mtz MD 1000 ml sodium chloride [...] George MD sucralfate 1000 mg oral tablet (14 sources) Aluminum Complex Start: 07-02-2017 End: 01-08-2018 take 1 tablet by mouth 1 hour(s) before bedtime Sucralfate 1 GM tablet Discontinued 1 g PO BEFORE MEALS AND AT BEDTIME 120 0 July 02, 2017 12:00am January 08, 2018 [...] One tablet by mouth daily TAMSULOSIN HCL [id number] Speedy Mtz MD triamcinolone acetonide 0.055 mg/actuat metered dose nasal spray (20 sources) Corticosteroid Start: 10-30-2012 End: 01-10-2016 take 2 spray(s) nasal route once daily NASACORT AQ 55 MCG/ACT AERO two sprays in each nostril once a day TRIAMCINOLONE ACETONIDE [id number] Wilda Wise Start: 10-30-2012 take 2 spray(s) nasa l route once daily NASACORT AQ 55 MCG/ACT AERS two sprays in each nostril once a day TRIAMCINOLONE ACETONIDE [id number] Peg Deng RN Start: 10-30-2012 take 2 spray(s) nasa l route once daily NASACORT AQ 55 MCG/ACT AERS two sprays in each nostril once a day TRIAMCINOLONE ACETONIDE [id number] Val Henley RN Start: 10-30-2012 End: 01-10-2016 take 2 spray(s) nasal route once daily NASACORT AQ 55 MCG/ACT AERS two sprays in each nostril once a day TRIAMCINOLONE ACETONIDE [id number] Wilda Wise Vancomycin HCl in NaCl (Vancocin) [...] Problem Date Documented Date Episodic/Chronic Abdominal pain (14 sources) Left flank pain; Translations: [Unspecified abdominal pain] 01-24-2022 Episodic Acute 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 (20 sources) ST elevation (STEMI) 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 involving other coronary artery of anterior wall; Translations: [Acute 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 of other anterior wall, subsequent episode of care] Onset: 02-16-2011 Resolved: 06-01-2016 02-16-2011 Chronic Cardiac dysrhythmias (2 sources) Palpitations; Translations: [Palpitations] Onset: 11-21-2023 Episodic Chronic obstructive pulmonary disease and bronchiectasis (14 sources) Bronchitis; Translations: [Bronchitis, not specified as [...] Coronary atherosclerosis; Translations: [Atherosclerotic heart disease of [place] coronary artery without angina pectoris] Onset: 02-16-2011 [...] diabetes mellitus without complications] Onset: 01-11-2025 Chronic Diabetes mellitus without complication (5 sources) Hyperglycemia; Translations: [Hyperglycemia, unspecified] 05-21-2024 Episodic Disorders of lipid metabolism (20 sources) Hyperlipidemia; Translations: [Hyperlipidemia, unspecified] Onset: 02-16-2011 02-16-2011 Chronic E Codes: Fall (14 sources) Fall; Translations: [Unspecified fall, initial encounter] [...] Episodic Immunizations and screening for infectious disease (14 sources) Suspected disease caused by 2019-nCoV; Translations: [Suspected 2019-nCoV infection] 07-18-2020 Episodic Joint disorders and dislocations; trauma-related (1 source) Unspecified disorder of patella, left knee; Translations: [Unspecified disorder of patella, left knee] Onset: 06-25-2024 Chronic Malaise and fatigue (20 sources) Malaise and fatigue; Translations: [Other malaise and fatigue] Onset: 01-10-2015 01-10-2015 Episodic Noninfectious gastroenteritis (14 sources) Gastroenteritis; Translations: [Noninfective gastroenteritis and colitis, unspecified] 04-21-2019 Episodic Nonspecific chest pain (19 sources) Chest pain; Translations: [Chest pain, unspecified] Onset: 05-18-2025 02-18-2021 Episodic Osteoarthritis (18 sources) Osteoarthritis of left hip joint; Translations: [Unilateral primary osteoarthritis, left hip] Onset: 10-05-2015 10-05-2015 Chronic Other aftercare (9 sources) Patient encounter status; Translations: [Other buttermaker (current) drug therapy] 04-21-2019 Episodic Other aftercare (5 sources) Long-term current use of drug therapy; Translations: [Other fdc (current) drug therapy] 01-08-2018 Episodic Other bone disease and musculoskeletal deformities (6 sources) History of amputation of right leg through femur; Translations: [Acquired absence of right leg above knee] Onset: 04-23-2019 04-25-2019 Chronic Other connective tissue disease (14 sources) Neurological symptom; Translations: [Unspecified symptoms and signs involving the nervous system] 02-18-2021 Episodic Other connective tissue disease (11 sources) Lateral epicondylitis of left humerus; Translations: [Lateral epicondylitis, left elbow] 08-09-2022 Episodic Other connective tissue disease (2 sources) Lateral epicondylitis, left elbow; Translations: [Lateral epicondylitis] Episodic Other connective tissue disease (5 sources) Prepatellar bursitis of left knee; Translations: [Prepatellar bursitis, left knee] 07-07-2024 Episodic Other diseases of kidney and ureters (5 sources) Small left kidney; Translations: [Small kidney, unilateral] 11-18-2024 Episodic Other diseases of veins and lymphatics (18 sources) Lymphedema, not elsewhere classified; Translations: [Lymphedema of lower extremity] Onset: 08-06-2013 04-03-2017 Chronic Other diseases of veins and lymphatics (15 sources) Lymphedema of right lower limb; Translations: [...] injuries and conditions due to external causes (14 sources) Foreign body in esophagus; Translations: [Unspecified foreign body in esophagus causing other injury, initial encounter] 05-09-2021 Episodic Other injuries and conditions due to external causes (9 sources) Radiation injury; Translations: [Radiation sickness, unspecified, initial encounter] 04-21-2019 Episodic Other injuries and conditions due to external causes (14 sources) Systemic inflammatory response syndrome; Translations: [Systemic inflammatory response syndrome (SIRS) of non-infectious origin without acute organ dysfunction] 04-21-2019 Episodic Other injuries and conditions due to external causes (5 sources) Injury by causative force; Translations: [Radiation sickness, unspecified, initial encounter] 01-08-2018 Episodic Comment on above: late effect radiatio n right lower extremity Other lower respiratory disease (20 sources) Dyspnea; Translations: [Shortness of breath] Onset: 07-01-2013 07-01-2013 Episodic Other lower respiratory disease (10 sources) Wheezing; Translations: [Wheezing] 11-04-2022 Episodic Other nervous system disorders (14 sources) Paresthesia of left upper limb; Translations: [Paresthesia of skin] 02-18-2021 Episodic Other non-traumatic joint disorders (11 sources) Pain in elbow; Translations: [Pain in [...] Chronic Other nutritional; endocrine; and metabolic disorders (19 sources) Body mass index 40+ - severely obese; Translations: [Morbid (severe) obesity due to excess calories] 04-21-2019 Chronic Other nutritional; endocrine; and metabolic disorders (19 sources) Body mass index 30+ - obesity; Translations: [Obesity, unspecified] 04-21-2019 Chronic Other nutritional; endocrine; and metabolic disorders (3 sources) Obesity, unspecified; Translations: [Obesity, unspecified] Onset: 05-03-2025 09-10-2023 Chronic Other upper respiratory infections (20 sources) Upper respiratory infection; Translations: [Acute upper [...] Spondylosis; intervertebral disc disorders; other back problems (5 sources) Low back pain; Translations: [Low back pain] 11-03-2024 Episodic Superficial injury; contusion (5 sources) Contusion of right shoulder; Translations: [Contusion of right shoulder, initial encounter] 07-07-2024 Episodic Unclassified (2 sources) Disorder of cardiovascular system; Translations: [Unspecified disorder of circulatory system] Onset: 02-16-2011 Resolved: 06-01-2016 02-16-2011 Chronic Unclassified (1 source) Implantation of automatic cardiac defibrillator ; Translations: [Presence of automatic (implantable) cardiac defibrillator] Onset: 02-16-2011 02-16-2011 Unclassified (1 source) Long-term drug therapy; Translations: [Other buttermaker (current) drug therapy] Onset: 02-16-2011 02-16-2011 Unclassified (1 source) Aftercare ; Translations: [Encounter for other specified surgical aftercare] Onset: 06-05-2017 07-07-2017 Unclassified (1 source) Low back pain, unspecified; Translations: [Low back pain, unspecified] Onset: 01-11-2025 Viral infection (14 sources) Disease caused by 2019-nCoV; Translations: [COVID-19] [...] 06-19-2017 06-19-2017 Episodic Calculus of urinary tract (20 sources) 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; Translations: [Calculus of kidney] Onset: 01-11-2025 02-18-2021 Episodic Cancer of bone and connective tissue (17 sources) Sarcoma; 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] Onset: 10-04-2015 Resolved: 04-25-2019 04-03-2017 Chronic Complications of surgical procedures or medical care (1 source) Wound discharge; Translations: [Other complications of procedures, not elsewhere classified, initial encounter] Resolved: 04-25-2019 04-25-2019 Episodic Congestive heart failure; nonhypertensive (14 sources) Congestive heart failure; nonhypertensive 04-21-2019 Coronary atherosclerosis and other heart disease (20 sources) History of 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; Translations: [Presence of aortocoronary bypass graft] Onset: 06-01-2005 02-16-2011 Episodic Comment on above: PTCA/stent to prox L AD 02/02/05; PTCA/stent instent restenosis of prox LAD 10/15/13 Neoplasms of unspecified nature or uncertain behavior (20 sources) Neoplasm of soft tissue; 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] Onset: 05-15-2017 05-18-2017 Episodic Open wounds of extremities (16 sources) Open wound of foot except toes with complication; Translations: [Laceration with foreign body, unspecified foot, initial encounter] Onset: 01-11-2016 01-12-2016 Episodic Other aftercare (15 sources) Long-term drug therapy; Translations: [Other buttermaker (current) drug therapy] Onset: 02-16-2011 02-16-2011 Episodic Other circulatory disease (20 sources) Disorder of cardiovascular system; Translations: [Unspecified disorder of circulatory system] Onset: 02-16-2011 Resolved: 06-01-2016 06-01-2016 Episodic Other injuries and conditions due to external causes (12 sources) Late effect of radiation; Translations: [Radiation sickness, unspecified, sequela] Onset: 05-15-2017 05-28-2017 Episodic Other nervous system disorders (7 sources) [...] examination] Onset: 02-16-2011 Resolved: 06-01-2016 02-16-2011 Unclassified (14 sources) Lymphedema of Right Leg 04-21-2019 Unclassified (14 sources) Age more than 65 years; Translations: [Over 65 years old] 12-14-2021 Unclassified (5 sources) Abrasion, left knee, initial encounter 07-07-2024 Results Test Name Value Interpretation Reference Range Facility CTA Chest W/WO Contraston CTA Chest W/WO Contrast [facility] Imaging Services [address] [address] CTA Chest W/WO Contrast MR#: [id number] Acct: [id number] Name: ALBIN ISSA Rep #: [id number] : 1955 M 70 From: Makenna Steiner PCP: Dr. Speedy Boswell MD Status: [facility] CLI Study: CTA Chest W/WO Contrast Date of Exam: 05/12/25 Exam# [id number] Ordering Dr: Speedy Boswell MD PROCEDURE: CTA CHEST W/WO CONTRAST 05/12/2025 REASON FOR EXAM: Chest pain TECHNIQUE: CTA axial imaging of the chest with intravenous contrast. Multiplanar and multisequence images were obtained. PATIENT PREPARATION: Per protocol CONTRAST: 100 mL of Isovue 370 One or more dose reduction techniques were used (e.g., Automated exposure control, adjustment of the mA and/or kV according to patient size, use of iterative reconstruction technique). RADIATION DOSE SUMMARY: DLP: 809 mGycm COMPARISON: None FINDINGS: PULMONARY ARTERIES: Limited evaluation due to motion artifact and contrast bolus/timing. Evaluation of segmental and subsegmental branches are incomplete due to this limitation. No acute pulmonary emboli within the main or lobar branches. LUNGS AND PLEURA: Bibasilar subsegmental atelectasis. No focal consolidations. No definite pulmonary edema. No mass or nodule. No pleural effusion. No pneumothorax. MEDIASTINUM: No lymphadenopathy or mass. Mild cardiomegaly. Extensive coronary atherosclerosis. The aorta shows no acute findings. The pulmonary trunk, and branches of the vessels in the mediastinum are within normal limits. SUPRACLAVICULAR AND AXILLARY: No abnormalities seen in these regions. No mass or significant lymphadenopathy. UPPER ABDOMEN: The visualized upper abdomen is unremarkable. BONES AND SOFT TISSUES: The ribs are unremarkable. Median sternotomy wires. The visualized spine shows no significant acute findings. No focal bony mass lesions noted. The subcutaneous soft tissues are unremarkable. Left chest pacer. CT/CTA Chest W/WO Contrast IMPRESSION: Limited evaluation due to motion artifact and contrast bolus/timing. Evaluation of segmental and subsegmental branches are incomplete due to this limitation. No acute pulmonary emboli within the main or lobar branches. No focal consolidations. Reading Location: [facility] CC: Dr. Speedy Boswell MD Well Treatment Offsider: Signed Normal [facility] Microalb:Creat Ratio,Random URon 05-12-2025 Creatinine [Mass/Vol] 91.40 mg/dL Normal 39.00-259.00 [facility] Comment on above: Performed By: #### L 500.2500, L100.0100 #### [facility] Laboratory [address] [place], [place], [id number] MALB:CREAT UNABLE TO CALCULATE Normal [facility] Comment on above: Performed By: #### L 500.2500, L100.0100 #### [facility] [address] [place], [place], [id number] MICROALBUMIN,UR < 12.0 Normal NO RANGE EST. [facility] Comment on above: Performed By: #### L 500.2500, L100.0100 #### [facility] [address] [place], [place], [id number] MALB:CREAT Normal [facility] Comment on above: Result Comment: NO U RINE CVOLLECTED Performed By: #### L 500.2500, L100.0100 #### [facility] [address] [place], [address] MICROALBUMIN,UR Normal NO RANGE EST. [facility] Comment on above: Result Comment: NO U RINE CVOLLECTED Performed By: #### L 500.2500, L100.0100 #### [facility] [address] [place], [address] UR CREAT Normal 39.00-259.00 [facility] Comment on above: Result Comment: NO U RINE CVOLLECTED Performed By: #### L 500.2500, L100.0100 #### [facility] [address] [place], [address] Microalbumin/creat ratio urO rdered By: Speedy Boswell on 05-12-2025 Urine microalbumin/creatinine ratio measurement UNABLE TO CALCULATE mg/g CRE [facility] Random urine creatinine raul urement (mass/volume)Ordered By: Speedy Boswell on 05-12-2025 Creatinine Unsp time (U) [Mass/Vol] 91.40 mg/dL 39.00-259.00 [facility] Urine albumin measurement wi th detection limit of 20 mg/L or less (mass/volume)Ordered By: Speedy Boswell on 05-12-2025 Albumin DL <= 20 mg/L (U) [Mass/Vol] < 12.0 mg/L NO RANGE EST. [facility] 12 Lead EKGon 05-09-2025 12 Lead EKG [facility] Cardiovascular Services [address] [place] [address] 12 Lead EKG 05/09/25 0004 MR#: [id number] Acct: [id number] Name: ALBIN ISSA Rep #: [id number] : 1955 70 From: Louis Sweet MD Attending Dr: Status: DEP ER Ordering Dr: Kenneth Redmond DO Date: 05/09/25 Location: ED Sex: M C Admitted: Test Reason : CP Blood Pressure : */* mmHG Vent. Rate : 57 BPM Atrial Rate : 57 BPM P-R Int : 184 ms QRS Dur : 94 ms QT Int : 318 ms P-R-T Axes : 77 -61 72 degrees QTcB Int : 309 ms Sinus bradycardia Left axis deviation Nonspecific T wave abnormality Abnormal ECG Confirmed by Louis Sweet ([id number]), scientific editor BEATRIZ BECERRIL ([id number]) on 05/10/2025 9:34:21 AM Referred By: Confirmed By: Louis Sweet 05/10/25 0934 Date Louis Sweet MD CC: Dr. Speedy Boswell MD; Dr. Kenneth Redmond DO Signed Normal [facility] Absolute lymphocyte countOrd ered By: Kenneth Redmond on 05-09-2025 Lymphocytes Auto (Unsp spec) [#/Vol] 1.88 10*3/uL 0.83-4.51 [facility] Absolute neutrophil countOrd ered By: Kenneth Redmond on 05-09-2025 Neutrophils (Bld) [#/Vol] 4.7 10*3/uL 2.0-7.7 [facility] Activated partial thrombopla stin time (aPTT) in platelet poor plasma by coagulation aOrdered By: Kenneth Redmond on 05-09-2025 aPTT Coag (PPP) [Time] 24.4 s 24.1-36.2 [facility] Anion gap in Serum or Plasma Ordered By: Kenneth Redmond on 05-09-2025 Anion gap [Moles/Vol] 11 mmol/L 5-15 [facility] Automated lymphocyte count a s percentage of total leukocytesOrdered By: Kenneth Redmond on 05-09-2025 Lymphocytes/100 WBC Auto (Unsp spec) 24.3 % 19-41 [facility] BUN/creatinine ratioOrdered By: Kenneth Redmond on 05-09-2025 Urea nitrogen/Creatinine [Mass ratio] 16.2 mg/mg - [facility] Basic Metabolic Profile (BMP )on 05-09-2025 BUN/CRE 16.2 RATIO Normal - [facility] Comment on above: Performed By: #### L 400.0001 #### [facility] Laboratory [facility] [place], [address] Calcium [Mass/Vol] 9.7 mg/dL Normal 7.6-11.0 [facility] Comment on above: Performed By: #### L 400.0001 #### [facility] [address] [place], [address] Chloride [Moles/Vol] 105 mmol/L Normal 98-108 [facility] Comment on above: Performed By: #### L 400.0001 #### [facility] [address] [place], [address] CO2 [Moles/Vol] 24.1 mmol/L Normal 21.0-32.0 [facility] Comment on above: Performed By: #### L 400.0001 #### [facility] [address] [place], [address] Creatinine [Mass/Vol] 1.25 mg/dL High 0.70-1.20 [facility] Comment on above: Performed By: #### L 400.0001 #### [facility] [address] [place], [address] ECRCL 74.15 ml/min Normal 50-250 [facility] Comment on above: Performed By: #### L 400.0001 #### [facility] [address] [place], [address] GAP 11 Normal 5-15 [facility] Comment on above: Performed By: #### L 400.0001 #### [facility] [address] [place], [address] GFR/1.73 sq M.predicted among non-blacks MDRD (S/P/Bld) [Vol rate/Area] 62 mL/min/{1.73_m2} Normal >60 [facility] Comment on above: Result Comment: mL/m in/1.73m2 CKD-EPI Creatinine Equation (2020) Performed By: #### L 400.0001 #### [facility] [address] [place], [address] Glucose [Mass/Vol] 88 mg/dL Normal 70-99 [facility] Comment on above: Performed By: #### L 400.0001 #### [facility] [address] [place], [address] Potassium [Moles/Vol] 3.5 mmol/L Normal 3.3-5.1 [facility] Comment on above: Performed By: #### L 400.0001 #### [facility] [address] [place], [address] Sodium [Moles/Vol] 140 mmol/L Normal 133-145 [facility] Comment on above: Performed By: #### L 400.0001 #### [facility] [address] [place], [address] Urea nitrogen [Mass/Vol] 20 mg/dL High 4-19 [facility] Comment on above: Performed By: #### L 400.0001 #### [facility] [address] [place], [address] Basophil percentageOrdered B y: Kenneth Redmond on 05-09-2025 Basophils/100 WBC (Bld) 0.9 % 0-1 [facility] CBC W/Diff, Automatedon Absolute Lymph 1.88 X10 3/uL Normal 0.83-4.51 [facility] Comment on above: Performed By: #### L 501.4021, L300.8000, L500.2500, L300.4310, L300.3900, L100.0100, L503.7505 #### [facility] [address] [place], [address] Absolute Neut 4.7 X10 3/uL Normal 2.0-7.7 [facility] Comment on above: Performed By: #### L 501.4021, L300.8000, L500.2500, L300.4310, L300.3900, L100.0100, L503.7505 #### [facility] [address] [place], [address] Basophils/100 WBC (Bld) 0.9 % Normal 0-1 [facility] Comment on above: Performed By: #### L 501.4021, L300.8000, L500.2500, L300.4310, L300.3900, L100.0100, L503.7505 #### [facility] [address] [place], [address] Eosinophils/100 WBC (Bld) 3.9 % Normal 0-5 [facility] Comment on above: Performed By: #### L 501.4021, L300.8000, L500.2500, L300.4310, L300.3900, L100.0100, L503.7505 #### [facility] [address] [place], [address] Erythrocyte distribution width (RBC) [Ratio] 13.3 % Normal 11.6-14.6 [facility] Comment on above: Performed By: #### L 501.4021, L300.8000, L500.2500, L300.4310, L300.3900, L100.0100, L503.7505 #### [facility] [address] [place], [address] Hematocrit (Bld) [Volume fraction] 44.4 % Normal 40-54 [facility] Comment on above: Performed By: #### L 501.4021, L300.8000, L500.2500, L300.4310, L300.3900, L100.0100, L503.7505 #### [facility] [address] [place], [address] Hemoglobin (Bld) [Mass/Vol] 15.0 g/dL Normal 13.0-16.5 [facility] Comment on above: Performed By: #### L 501.4021, L300.8000, L500.2500, L300.4310, L300.3900, L100.0100, L503.7505 #### [facility] [address] [place], [address] IG% 0.600 Normal 0.0-0.9 [facility] Comment on above: Result Comment: IG% - Immature Granulocytes (promyelocytes, myelocytes and metamyelocytes) > 1% indicates that a LEFT SHIFT is Present. Performed By: #### L 501.4021, L300.8000, L500.2500, L300.4310, L300.3900, L100.0100, L503.7505 #### [facility] [address] [place], [address] Lymphocytes/100 WBC (Bld) 24.3 % Normal 19-41 [facility] Comment on above: Performed By: #### L 501.4021, L300.8000, L500.2500, L300.4310, L300.3900, L100.0100, L503.7505 #### [facility] [address] [place], [address] MCH (RBC) [Entitic mass] 30.2 pg Normal 27.0-32.0 [facility] Comment on above: Performed By: #### L 501.4021, L300.8000, L500.2500, L300.4310, L300.3900, L100.0100, L503.7505 #### [facility] [address] [place], [address] MCHC (RBC) [Mass/Vol] 33.8 g/dL Normal 32-36 [facility] Comment on above: Performed By: #### L 501.4021, L300.8000, L500.2500, L300.4310, L300.3900, L100.0100, L503.7505 #### [facility] [address] [place], [address] MCV (RBC) [Entitic vol] 89.3 fL Normal 80-94 [facility] Comment on above: Performed By: #### L 501.4021, L300.8000, L500.2500, L300.4310, L300.3900, L100.0100, L503.7505 #### [facility] [address] [place], [address] Monocytes/100 WBC (Bld) 9.3 % Normal 0-10 [facility] Comment on above: Performed By: #### L 501.4021, L300.8000, L500.2500, L300.4310, L300.3900, L100.0100, L503.7505 #### [facility] [address] [place], [address] Neutrophils/100 WBC (Bld) 61.0 % Normal 47-70 [facility] Comment on above: Performed By: #### L 501.4021, L300.8000, L500.2500, L300.4310, L300.3900, L100.0100, L503.7505 #### [facility] [address] [place], [address] Nucleated RBC (Bld) [#/Vol] 0 10*3/uL Normal 0-5 [facility] Comment on above: Performed By: #### L 501.4021, L300.8000, L500.2500, L300.4310, L300.3900, L100.0100, L503.7505 #### [facility] [address] [place], [address] Platelet mean volume (Bld) [Entitic vol] 9.7 fL Normal 6.2-12.0 [facility] Comment on above: Performed By: #### L 501.4021, L300.8000, L500.2500, L300.4310, L300.3900, L100.0100, L503.7505 #### [facility] [address] [place], [address] Platelets (Bld) [#/Vol] 221 10*3/uL Normal 150-450 [facility] Comment on above: Performed By: #### L 501.4021, L300.8000, L500.2500, L300.4310, L300.3900, L100.0100, L503.7505 #### [facility] [address] [place], [address] RBC (Bld) [#/Vol] 4.97 10*6/uL Normal 4.6-6.2 [facility] Comment on above: Performed By: #### L 501.4021, L300.8000, L500.2500, L300.4310, L300.3900, L100.0100, L503.7505 #### [facility] [address] [place], [address] RDW SD 43.5 fl Normal 35.1-43.9 [facility] Comment on above: Performed By: #### L 501.4021, L300.8000, L500.2500, L300.4310, L300.3900, L100.0100, L503.7505 #### [facility] [address] [place], [address] WBC (Bld) [#/Vol] 7.7 10*3/uL Normal 4.4-11.0 [facility] Comment on above: Performed By: #### L 501.4021, L300.8000, L500.2500, L300.4310, L300.3900, L100.0100, L503.7505 #### [facility] [address] [place], [address] Carbon dioxide, total [Moles /volume] in Central venous bloodOrdered By: Kenneth Stokes 05-09-2025 CO2 [Moles/Vol] 24.1 mmol/L 21.0-32.0 [facility] Chest PA and Lateralon 05-09 Chest PA and Lateral [facility] Imaging Services [address] [place], [place] [address] Chest PA and Lateral MR#: [id number] Acct: [id number] Name: ALBIN ISSA Rep #: [id number] : 1955 M 70 From: Allie pollock MD PCP: Dr. Speedy Boswell MD Status: REG ER Study: Chest PA and Lateral Date of Exam: 05/09/25 Exam# [id number] Ordering Dr: Kenneth Redmond DO PROCEDURE: CHEST PA AND LATERAL 05/09/2025 REASON FOR EXAM: CHEST PAIN TECHNIQUE: Frontal and lateral views of the chest. COMPARISON: 10/27/2022. FINDINGS: AICD is in good position. Unremarkable median sternotomy wires. Unchanged mild central pulmonary venous congestion. There is no demonstrated pleural abnormality. Enlarged cardiac silhouette. Normal mediastinum and keke. Normal visualized pulmonary arteries. Atheromatous plaques of the visualized aortic arch and descending thoracic aorta. Diffuse spondylosis of the visualized thoracic spine. Normal visualized ribs, clavicles. Degenerative joint disease. There is no demonstrated abnormality of the visualized soft tissue structures of the upper abdomen. RAD/Chest PA and Lateral IMPRESSION: Unchanged cardiomegaly. Unchanged mild central pulmonary venous congestion. Reading Location: [place] [address] CC: Dr. Speedy Boswell MD; Dr. Kenneth Redmond DO Well Treatment Offsider: Signed Normal [facility] Chloride assayOrdered By: Magdi Redmond on 05-09-2025 Chloride [Moles/Vol] 105 mmol/L 98-108 [facility] D-Dimer Quantitative (DVT/PE )on 05-09-2025 D-DIMER QUANT 0.59 FEU/ug/m Invalid Interpretation Code 0.27-0.49 [facility] Comment on above: Result Comment: D-Di kayla ELEVATED (>0.49): Additional studies and clinical assessments are indicated to conclude diagnosis of: Deep Vein Thrombosis (DVT) or Pulmonary Embolism (PE) CRITICAL VALUE CALLED TO LSPARR 05/09/25 Rios Stark. RESULTS READ BACK BY SAME. Performed By: #### L 400.0001 #### [facility] [address] [facility] [place], [address] Emergency Department Summary on 05-09-2025 Emergency Department Summary [facility] Medical Records Department [address] [place] [address] Emergency Department Summary 05/09/25 MR#: [id number] Acct: [id number] Name: ALBIN ISSA Rep #: [id number] : 1955 70 From: Kenneth Quezada PCP: Dr. Speedy Boswell MD Status:DEP ER Location: ED HPI History of Present Illness Chief Complaint: Chest Pain Informant: patient Narrative Narrative: Chest pain on and off since yesterday. Worse with movement. States intermittent sharp sensations moved to the right side. No cough. History of coronary disease two-vessel CABG in the past. States he had a maker. He is followed by Dr. Villagomez. Reports his maker started with sore throat. 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 He has an ICD. He is on aspirin and Plavix. No recent travel or surgeries. No history of PE or DVT. Prior Similar Symptoms: No CVD Risk Factors: Positive for Hypertension and Hypercholesterolemia; Negative for Diabetes, Family History 1' PE Risk Factors: Negative for Recent Travel/Surgery, Recent Immobilization or Prior DVT or PE [facility] Medical History Coronary atherosclerosis of bypass graft [...] (gastroesophageal reflux disease) Atherosclerotic heart disease of [place] coronary artery without angina pectoris Shortness of breath History of 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 correction use of drug Ischemic cardiomyopathy ( 10/30/23) [...] 81 mg PO QHS Heart health 06/09/17 11/08/24 History gabapentin 300 mg capsule 300 mg PO QHS Rls 09/21/20 4 History temazepam 15 mg capsule 15 mg PO QHS PRN Sleep 09/21/20 History trazodone 50 mg tablet 50 mg PO QHS sleep 03/22/21 History escitalopram oxalate 20 mg tablet 20 mg PO DAILY 08/20/22 06/11/24 History multivitamin (Daily Multi-Vitamin 1 tab PO DAILY 05/27/24 06/06/24 History tablet) pantoprazole 40 mg tablet,delayed 40 mg PO DAILY gerd #90 tabs 09/0211/18/24 05:45 Rx release clopidogrel 75 mg tablet (Plavix) 75 mg PO DAILY blood clots #90 ta bs 10/12/24 11/08/24 Rx furosemide 40 mg tablet 40 mg PO BID #180 tabs 10/19/24 Un known Rx acetaminophen 500 mg tablet 1,000 mg PO Q8 PRN fever or pain 1 12/21/23 Unknown History desloratadine 5 mg tablet 5 mg PO DAILY PRN allergy symptoms 10/21/24 Unknown History finasteride 5 mg tablet 5 mg PO DAILY 10/21/24 Unknown His tory dapagliflozin propanediol 10 mg 10 mg PO DAILY #90 tabs 12/10/24 U nknown Rx tablet (Rufus) carvedilol 25 mg tablet 25 mg PO BID heart #180 tabs 12/25 Unknown Rx potassium chloride 20 mEq 40 meq (2 x 20 mEq) PO QDAY Unknown Rx tablet,extended release supplement #180 tabs ramipril 10 mg capsule 10 mg PO DAILY #90 caps 04/15/25 U nknown Rx atorvastatin 40 mg tablet (Lipitor) 40 mg PO QDAY #90 tabs 05/03/25 Unknown Rx isosorbide mononitrate 60 mg 60 mg PO QDAY blood pressure #90 0 05/03/25 Unknown Rx tablet,extended release 24 hr tabs Allergy/AdvReac Type Severity Reaction Status Date / Time No Known Allergies Allergy Verified 05/09/25 00:02 Family History (Reviewed 05/09/25 @ 03: (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 Normal [facility] Eosinophil percentageOrdered By: Kenneth Redmond on 05-09-2025 Eosinophils/100 WBC (Bld) 3.9 % 0-5 [facility] Erythrocyte distribution wid th ratioOrdered By: Kenneth Redmond on 05-09-2025 Erythrocyte distribution width (RBC) [Ratio] 13.3 % 11.6-14.6 [facility] Erythrocyte distribution wid th standard deviationOrdered By: Kenneth Redmond on 05-09-2025 Erythrocyte distribution width (RBC) [Ratio] 43.5 fl 35.1-43.9 [facility] Glomerular filtration rate ( GFR) estimation/1.73 sq m using serum, plasma, or whole bOrdered By: Kenneth Redmond on 05-09-2025 GFR/1.73 sq M.predicted among non-blacks MDRD (S/P/Bld) [Vol rate/Area] 62 mL/min/{1.73_m2} >60 [facility] Comment on above: mL/min/1.73m2 CKD-EP I Creatinine Equation (2020) Hematocrit Auto (Bld) [Volum e fraction]Ordered By: Kenneth Redmond on 05-09-2025 Hematocrit (Bld) [Volume fraction] 44.4 % 40-54 [facility] Hemoglobin measurementOrdere d By: Kenneth Redmond on 05-09-2025 Hemoglobin (Bld) [Mass/Vol] 15.0 g/dL 13.0-16.5 [facility] Immature granulocytes/100 WB C Auto (Bld)Ordered By: Kenneth Redmond on 05-09-2025 Immature granulocytes/100 WBC (Bld) 0.600 % 0.0-0.9 [facility] Comment on above: IG% - Immature Granu locytes (promyelocytes, myelocytes and metamyelocytes) > 1% indicates that a LEFT SHIFT is Present. International normalized rat io (INR) calculationOrdered By: Kenneth Redmond on 05-09-2025 INR Coag (Bld) [Relative time] 1.0 {INR} [facility] L499.0042on 05-09-2025 Trop T High Sen 14 ng/L Normal <=22 [facility] Comment on above: Performed By: #### L 500.2500, L100.0100 #### [facility] Laboratory [address] [place], [address] L499.0043on 05-09-2025 Trop T High Sen Normal <=22 [facility] Comment on above: Result Comment: Canc elled via OM: Order cancelled - Patient discharged Performed By: #### L 499.0043 #### [facility] [address] [place], [address] L501.4021on 05-09-2025 Trop T High Sen 14 ng/L Normal <=22 [facility] Comment on above: Performed By: #### L 400.0001 #### [facility] [address] [place], [address] L503.7505on 05-09-2025 Natriuretic peptide B (Bld) [Mass/Vol] 86 pg/mL Normal <=900 [facility] Comment on above: Result Comment: Hear t Failure Unlikely: < 300 pg/mL Heart Failure Likely < 50 Years: > 450 pg/mL 50-75 Years: > 900 pg/mL >75 Years: > 1800 pg/mL Performed By: #### L 400.0001 #### [facility] [address] [place], [address] MCV (mean corpuscular volume ) determinationOrdered By: Kenneth Redmond on 05-09-2025 MCV (RBC) [Entitic vol] 89.3 fL 80-94 [facility] Mean corpuscular hemoglobin (MCH) determinationOrdered By: Kenneth Redmond on 05-09-2025 MCH (RBC) [Entitic mass] 30.2 pg 27.0-32.0 [facility] Mean corpuscular hemoglobin concentration (MCHC) determinationOrdered By: Kenneth Redmond on 05-09-2025 MCHC (RBC) [Mass/Vol] 33.8 g/dL 32-36 [facility] Mean platelet volume determi nationOrdered By: Kenneth Redmond on 05-09-2025 Platelet mean volume (Bld) [Entitic vol] 9.7 fL 6.2-12.0 [facility] Monocyte percentageOrdered B y: Kenneth Redmond on 05-09-2025 Monocytes/100 WBC (Bld) 9.3 % 0-10 [facility] Natriuretic peptide.B prohor froy N-Terminal [Mass/volume] in Serum or PlasmaOrdered By: Kenneth Redmond on 05-09-2025 Natriuretic peptide.B prohormone N-Terminal [Mass/Vol] 86 pg/mL <900 [facility] Comment on above: Heart Failure Unlike ly: < 300 pg/mLHeart Failure Likely< 50 Years: > 450 pg/mL50-75 Years: > 900 pg/mL>75 Years: > 1800 pg/mL Neutrophil percentageOrdered By: Kenneth Redmond on 05-09-2025 Neutrophils/100 WBC (Bld) 61.0 % 47-70 [facility] Nucleated red blood cell per centageOrdered By: Kenneth Redmond on 05-09-2025 Nucleated RBC/100 WBC (Bld) [Ratio] 0 % 0-5 [facility] Partial Thromboplast Timeon 05-09-2025 aPTT Coag (Bld) [Time] 24.4 s Normal 24.1-36.2 [facility] Comment on above: Performed By: #### L 400.0001 #### [facility] [address] [place], [address] Platelet countOrdered By: Magdi Redmond on 05-09-2025 Platelets (Bld) [#/Vol] 221 10*3/uL 150-450 [facility] Potassium measurement (mass/ volume)Ordered By: Kenneth Redmond on 05-09-2025 Potassium (Unsp spec) [Mass/Vol] 3.5 mmol/L 3.3-5.1 [facility] Prothrombin Time w/INRon INR Coag (PPP) [Relative time] 1.0 {INR} Normal [facility] Comment on above: Performed By: #### L 400.0001 #### [facility] [address] [place], [place], [address] PT Coag (PPP) [Time] 12.8 s Normal 11.7-14.9 [facility] Comment on above: Performed By: #### L 400.0001 #### [facility] [address] [place], [place], [id number] Prothrombin timeOrdered By: Kenneth Redmond on 05-09-2025 PT Coag (PPP) [Time] 12.8 s 11.7-14.9 [facility] RBC Auto (Bld) [#/Vol]Ordere d By: Kenneth Redmond on 05-09-2025 RBC (Bld) [#/Vol] 4.97 10*6/uL 4.6-6.2 [facility] Serum creatinine measurement (mass/volume)Ordered By: Kenneth Redmond on 05-09-2025 Creatinine [Mass/Vol] 1.25 mg/dL High 0.70-1.20 [facility] Serum glucose measurement (m ass/volume)Ordered By: Kenneth Redmond on 05-09-2025 Glucose [Mass/Vol] 88 mg/dL 70-99 [facility] Serum or plasma calcium raul urement (mass/volume)Ordered By: Kenneth Redmond on 05-09-2025 Calcium [Mass/Vol] 9.7 mg/dL 7.6-11.0 [facility] Serum or plasma urea nitroge n measurement (mass/volume)Ordered By: Kenneth Redmond on 05-09-2025 Urea nitrogen [Mass/Vol] 20 mg/dL High 4-19 [facility] Sodium levelOrdered By: Kenneth Redmond on 05-09-2025 Sodium [Moles/Vol] 140 mmol/L 133-145 [facility] Troponin T.cardiac [Mass/vol ume] in Serum or Plasma by High sensitivity methodOrdered By: Kenneth Redmond on 05-09-2025 Troponin T.cardiac High sensitivity method [Mass/Vol] 14 ng/L <22 [facility] Troponin T.cardiac High sensitivity method [Mass/Vol] 14 ng/L <22 [facility] White blood cell (WBC) count Ordered By: Kenneth Redmond on 05-09-2025 WBC (Bld) [#/Vol] 7.7 10*3/uL 4.4-11.0 [facility] Cardiology Visit Reporton Cardiology Visit Report [facility] [address] [place] [address] OFFICE VISIT Date of Service: 05/03/25 MR#: [id number] Acct: [id number] Name: ALBIN ISSA Rep #: [id number] : 1955 Provider: Dr. Delilah Villagomez MD Age/Sex: 70/M Location: [facility] Status: Signed HPI HPI History of [...] 81 mg chewable tablet 81 mg PO [facility] Heart health 06/09/17 05/03/25 History Held on [...] without angina pectoris Atherosclerotic heart disease of igiug[place] coronary artery without angina pectoris Automatic implantable [...] epicondylitis of left elbow Left elbow pain correction use of drug Lymphedema of Right Leg Lymphedema of right lower extremity Mixed hyperlipidemia Morbid obesity with BMI of 40.0-44.9, adult Obesity (BMI 30-39.9) Over 65 years old Pacemaker Paresthesia of left upper extremity Phantom pain after amputation of lower extremity Renal calculi Shortness of breath SIRS (systemic inflammatory res (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 Normal [facility] Pacemaker Checkon 01-25-2025 Pacemaker Check [facility] [address] [place], [place] [address] Pacemaker Check Date of Service: 01/25/25 1537 MR#: [id number] Acct: [id number] Name: ALBIN ISSA Rep #: [id number] : 1955 From: Bethany Deng Age/Sex: 69/M Location: [facility] Status: Signed Billing Codes ICD Device Billin ICD Dev Prog Eval, Dual Assessment and Plan Assessment and Plan (1) ICD (implantable cardioverter-defibril lator) in place: Status: Chronic Comment: ICD Implant 2009 (2) Ischemic cardiomyopathy: Status: Chronic Comment: EF 45%. Stage I diastolic dysfunction 01/25/25 1538 Date Bethany Perera Signature: Date (if applicable) CC: Normal [facility] Comprehensive Metabolic Prof ilon 12-11-2024 Albumin [Mass/Vol] 3.6 g/dL Normal 3.2-5.0 [facility] Comment on above: Performed By: #### L 400.0001 #### [facility] [address] [place], [address] Albumin/Globulin [Mass ratio] 1.1 {ratio} Normal 0.9-2.4 [facility] Comment on above: Performed By: #### L 400.0001 #### [facility] [address] [place], [address] ALK P 148 U/L High 45-117 [facility] Comment on above: Performed By: #### L 400.0001 #### [facility] [address] [place], [address] ALT [Catalytic activity/Vol] 34 U/L Normal 16-61 [facility] Comment on above: Performed By: #### L 400.0001 #### [facility] [address] [place], [address] AST [Catalytic activity/Vol] 14 U/L Low 15-37 [facility] Comment on above: Performed By: #### L 400.0001 #### [facility] [address] [place], [address] Bilirubin [Mass/Vol] 0.40 mg/dL Normal 0.20-1.00 [facility] Comment on above: Result Comment: For patients on eltrombopag therapy, use of Dimension Lyndon TBIL is not recommended. Performed By: #### L 400.0001 #### [facility] [address] [place], [address] BUN/CRE 12.3 RATIO Normal 10-20 [facility] Comment on above: Performed By: #### L 400.0001 #### [facility] [address] [place], [address] CA,Total 9.9 mg/dL Normal 8.5-10.1 [facility] Comment on above: Performed By: #### L 400.0001 #### [facility] [address] [place], [address] Chloride [Moles/Vol] 108 mmol/L High 98-107 [facility] Comment on above: Performed By: #### L 400.0001 #### [facility] [address] [place], [address] CO2 [Moles/Vol] 28.0 mmol/L Normal 21.0-32.0 [facility] Comment on above: Performed By: #### L 400.0001 #### [facility] [address] [place], [address] Creatinine [Mass/Vol] 1.06 mg/dL Normal 0.70-1.30 [facility] Comment on above: Result Comment: The validity of the calculated GFR GFRAA in patients over 70 years has not been determined. Clinical correlation is essential. Performed By: #### L 400.0001 #### [facility] [address] [place], [address] EST GFR - AA 89 mL/min Normal >60 [facility] Comment on above: Result Comment: Afri can Nicaraguan GFR Calc Performed By: #### L 400.0001 #### [facility] [address] [place], [address] GAP 4 Low 5-15 [facility] Comment on above: Performed By: #### L 400.0001 #### [facility] [address] [place], [address] GFR/1.73 sq M.predicted among non-blacks MDRD (S/P/Bld) [Vol rate/Area] 74 mL/min/{1.73_m2} Normal >60 [facility] Comment on above: Result Comment: Non- GFR Calc Performed By: #### L 400.0001 #### [facility] [address] [place], [address] Globulin (S) [Mass/Vol] 3.4 g/dL Normal 2.2-4.2 [facility] Comment on above: Performed By: #### L 400.0001 #### [facility] [address] [place], [address] Glucose [Mass/Vol] 126 mg/dL High 74-106 [facility] Comment on above: Result Comment: Fast ing Glucose result greater than or equal to 126 mg/dL suggests DIABETES MELLITUS per A.D.A. criteria. Performed By: #### L 400.0001 #### [facility] [address] [place], [address] Potassium [Moles/Vol] 3.6 mmol/L Normal 3.5-5.1 [facility] Comment on above: Performed By: #### L 400.0001 #### [facility] [address] [place], [address] Sodium [Moles/Vol] 140 mmol/L Normal 136-145 [facility] Comment on above: Performed By: #### L 400.0001 #### [facility] [address] [place], [place], [id number] (559) T PROT 7.0 g/dL Normal 6.4-8.2 [facility] Comment on above: Performed By: #### L 400.0001 #### [facility] [address] [place], [address] Urea nitrogen [Mass/Vol] 13 mg/dL Normal 7-18 [facility] Comment on above: Performed By: #### L 400.0001 #### [facility] [address] [place], [address] Hemoglobin A1con 12-11-2024 HbA1c (Bld) [Mass fraction] 6.0 % High 3.8-5.6 [facility] Comment on above: Result Comment: Norm al < 5.7 % Prediabetic 5.7 - 6.4 % Diabetic >or= 6.5 % Please note range changes. Performed By: #### L 400.0001 #### [facility] [address] [place], [place], [id number] Lipid Profileon 12-11-2024 Cholesterol [Mass/Vol] 113 mg/dL Normal 200 [facility] Comment on above: Result Comment: <200 mg/dL Desirable 200-240 mg/dL Borderline >240 mg/dL High Risk Performed By: #### L 400.0001 #### [facility] [address] [place], [address] Cholesterol in HDL [Mass/Vol] 50 mg/dL Normal [facility] Comment on above: Result Comment: The drugs N-Acetylcysteine and Metamizole may falsely depress this assay. Reference Range HDL <40 mg/dL Low HDL Cholesterol HDL >or= 60 mg/dL High HDL Cholesterol Performed By: #### L 400.0001 #### [facility] [address] [place], [address] Cholesterol in LDL [Mass/Vol] 39 mg/dL Normal 0-130 [facility] Comment on above: Performed By: #### L 400.0001 #### [facility] [address] [place], [address] Cholesterol in VLDL [Mass/Vol] 24 mg/dL Normal 5-40 [facility] Comment on above: Performed By: #### L 400.0001 #### [facility] [address] [place], [address] Triglyceride [Mass/Vol] 122 mg/dL Normal [facility] Comment on above: Result Comment: The drugs N-Acetylcysteine and Metamizole may falsely depress this assay. Serum Triglycerides Reference Interval Normal <150 mg/dL Borderline high 150 - 199 mg/dL High 200 - 499 mg/dL Very High > or = 500 mg/dL Performed By: #### L 400.0001 #### [facility] [address] [place], [address] Protein+Creatinine Ratio,Uri neon 12-11-2024 PROT:CRE RATIO Normal 0-200 [facility] Comment on above: Result Comment: UTO Performed By: #### L 400.0001 #### [facility] [address] [place], [address] PROTEIN,UR.RAN. Normal <11.9 [facility] Comment on above: Result Comment: UTO Performed By: #### L 400.0001 #### [facility] [address] [place], [address] UR CREAT Normal NO RANGE EST. [facility] Comment on above: Result Comment: UTO Performed By: #### L 400.0001 #### [facility] [address] [place], [address] Bedside Glucoseon 11-18-2024 FINGERSTICK GLU 109 mg/dL High 74-106 [facility] Comment on above: Result Comment: EVAN MELISSA OF PATIENT CARE PER NURSING PROTOCOL Performed By: #### L 500.2500, L100.0100 #### [facility] [address] [place], [address] Discharge Instructionon 11-01 Discharge Instruction [facility] Medical Records Department [address] [place] [address] Instructions for Home/Discharge Instructions 11/18/24 0733 MR#: [id number] Acct: [id number] Name: ALBIN ISSA Rep #: [id number] : 1955 69 From: Ravi Holder MD PCP: Dr. Speedy Boswell MD Status:DEP [facility] Discharge Instructions DC O2, CPAP, BIPAP needs Additional Home O2 Discharge instructions: No Follow Up Care Test Results: Test results from this visit will be discussed in further detail at your follow-up appointment, if applicable. Discharge Plan Admission Primary Reason for Your Visit: left laser stone Attending Provider: Ravi Holder Primary Care Provider: Speedy Boswell Instructions Print Language: Slovak Discharge Orders/Prescriptions Prescriptions: New ciprofloxacin HCl [Cipro] [...] 90 4RF pantoprazole 40 mg tablet,delayed release (/EC) 40 mg PO DAILY Qty: 90 3RF [...] can be placed): Home, Self Care 11/18/24 1354 Ravi Holder MD CC: Dr. Speedy Boswell MD Signed [facility] MR/POSTOP.[facility] 11-18-2024 MR/POSTOP.[facility] Medical Records Department [address] [place] [address] Anesthesia Postop Eval I 11/18/24 1008 MR#: [id number] Acct: [id number] Name: ALBIN ISSA Rep #: [id number] : 1955 69 From: Milka Gillis PCP: Dr. Speedy Boswell MD Status:REG [facility] Y Race: C Location: [place] [address] Anesthesia: Postop Eval I Current Vital Signs Temperature: 97.5 F Pulse Rate: 65 Blood Pressure: 117/61 Respiratory Rate: 18 Pulse Ox: 94 Assessment Airway patent: Yes Spontaneous unlabored respirations: Yes nausea: No Vomiting: No Anesthesia Complication: No Fluid Hydration Crystalloid volume administer (ml): 800 Total IV fluid infused: 800 Progress Note Anesthesia document: Postop Eval 1 completed: Yes 11/18/24 1009 Date Milka Gillis Cosign Signature: Date CC: Signed Normal [facility] MR/[id number] 11-18-2024 MR/POSTOPAN2 [facility] Medical Records Department [address] [place] [address] Anesthesia Postop Eval II 11/18/24 110 MR#: [id number] Acct: [id number] Name: ALBIN ISSA Rep #: [id number] : 1955 69 From: Niall Mayes MD PCP: Dr. Speedy Boswell MD Status:REG [facility] Y Race: C Location: [address] Anesthesia Postop Eval I Sum Postop Eval Completion status Anesthesia document: Postop Eval 1 completed: Yes Anesthesia Postop Eval I Summary Anesthesia Postop Eval I Summary: Anesthesia Postop Eval I: Assessment Summary Airway patent Yes 11/18/24 10:08 [employer] Spontaneous unlabored Yes 11/18/24 10:08 [employer] respirations Mental status nausea No 11/18/24 10:08 [employer] Vomiting No 11/18/24 10:08 [employer] Anesthesia Postop Eval I: Fluid Summary Crystalloid volume administer 800 11/18/24 10:08 [employer] (ml) Colloids volume administered ( ml) Blood Product volume administered (ml) Total IV fluid infused 800 11/18/24 10:08 [employer] Anesthesia Postop Eval I: Summary Notes Anesthesia Complication No 11/18/24 10:08 [employer] Anesthesia Complication Comment: Post-operative progress note Anesthesia: Postop Eval II Evaluation Mental status: Awake Pain Level: 0 nausea: No Vomiting: No 11/18/24 110 Date Niall Mayes MD Cosigner Signature: Date CC: Signed Normal [facility] Operative Reporton 4 Operative Report [facility] Medical Records Department [address] [place] [address] Operative Report 11/18/24 0958 MR#: [id number] Acct: [id number] Name: ALBIN ISSA Rep #: [id number] : 1955 69 From: Ravi Holder MD PCP: Dr. 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 Upon entering [...] MD; Dr. Speedy Boswell MD Signed Normal [facility] Cardiology Visit Reporton Cardiology Visit Report [facility] [address] [place] [address] OFFICE VISIT Date of Service: 11/04/24 MR#: [id number] Acct: [id number] Name: ALBIN ISSA Rep #: [id number] : 1955 Provider: Dr. 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 Normal [facility] Abdomen/Pelvis without Conto n 10-21-2024 Abdomen/Pelvis without Cont [facility] Imaging Services [address] [place], [place] [address] Abdomen/Pelvis without Cont MR#: [id number] Acct: [id number] Name: ALBIN ISSA Rep #: [id number] : 1955 M 69 From: Louis Steiner PCP: Dr. Speedy Boswell MD Status: DEP ER Study: Abdomen/Pelvis without Cont Date of Exam: 10/03 Exam# [id number] Ordering Dr: Manuel Hart DO [id number] EXAM: CT ABDOMEN AND PELVIS WITHOUT INTRAVENOUS [...] Dr. Speedy Boswell MD; Manuel Hart DO Well Treatment Offsider: Signed Normal [facility] Basic Metabolic Profile (BMP )on 10-21-2024 BUN/CRE 11.9 RATIO Normal 09-20 [facility] Comment on above: Performed By: #### L 500.2500, L100.0100 #### [facility] [address] [place], [address] CA,Total 9.6 mg/dL Normal 8.5-10.1 [facility] Comment on above: Performed By: #### L 500.2500, L100.0100 #### [facility] [address] [place], [address] Chloride [Moles/Vol] 107 mmol/L Normal 98-107 [facility] Comment on above: Performed By: #### L 500.2500, L100.0100 #### [facility] [address] [place], [address] CO2 [Moles/Vol] 26.0 mmol/L Normal 21.0-32.0 [facility] Comment on above: Performed By: #### L 500.2500, L100.0100 #### [facility] [address] [place], [address] Creatinine [Mass/Vol] 1.26 mg/dL Normal 0.70-1.30 [facility] Comment on above: Result Comment: The validity of the calculated GFR GFRAA in patients over 70 years has not been determined. Clinical correlation is essential. Performed By: #### L 500.2500, L100.0100 #### [facility] [address] [place], [address] ECRCL 73.08 ml/min Normal [facility] Comment on above: Performed By: #### L 500.2500, L100.0100 #### [facility] [address] [place], [address] EST GFR - AA 73 mL/min Normal >60 [facility] Comment on above: Result Comment: Afri can Nicaraguan GFR Calc Performed By: #### L 500.2500, L100.0100 #### [facility] [address] [place], [address] GAP 5 Normal 5-15 [facility] Comment on above: Performed By: #### L 500.2500, L100.0100 #### [facility] [address] [place], [address] GFR/1.73 sq M.predicted among non-blacks MDRD (S/P/Bld) [Vol rate/Area] 60 mL/min/{1.73_m2} Normal >60 [facility] Comment on above: Result Comment: Non- GFR Calc Performed By: #### L 500.2500, L100.0100 #### [facility] [address] [place], [address] Glucose [Mass/Vol] 141 mg/dL High 74-106 [facility] Comment on above: Result Comment: Fast ing Glucose result greater than or equal to 126 mg/dL suggests DIABETES MELLITUS per A.D.A. criteria. Performed By: #### L 500.2500, L100.0100 #### [facility] [address] [place], [address] Potassium [Moles/Vol] 3.5 mmol/L Normal 3.5-5.1 [facility] Comment on above: Performed By: #### L 500.2500, L100.0100 #### [facility] [address] [place], [address] Sodium [Moles/Vol] 138 mmol/L Normal 136-145 [facility] Comment on above: Performed By: #### L 500.2500, L100.0100 #### [facility] [address] [place], [address] Urea nitrogen [Mass/Vol] 15 mg/dL Normal 7-18 [facility] Comment on above: Performed By: #### L 500.2500, L100.0100 #### [facility] [address] [place], [address] CBC W/Diff, Automatedon 11-2 0-2024 Absolute Lymph 1.63 X10 3/uL Normal 0.83-4.51 [facility] Comment on above: Performed By: #### L 500.2500, L100.0100 #### [facility] [address] [place], [address] Absolute Neut 4.7 X10 3/uL Normal 2.0-7.7 [facility] Comment on above: Performed By: #### L 500.2500, L100.0100 #### [facility] [address] [place], [address] Basophils/100 WBC (Bld) 0.7 % Normal 0-1 [facility] Comment on above: Performed By: #### L 500.2500, L100.0100 #### [facility] [address] [place], [address] Eosinophils/100 WBC (Bld) 2.2 % Normal 0-5 [facility] Comment on above: Performed By: #### L 500.2500, L100.0100 #### [facility] [address] [place], [address] Erythrocyte distribution width (RBC) [Ratio] 13.0 % Normal 11.6-14.6 [facility] Comment on above: Performed By: #### L 500.2500, L100.0100 #### [facility] [address] [place], [address] Hematocrit (Bld) [Volume fraction] 41.9 % Normal 40-54 [facility] Comment on above: Performed By: #### L 500.2500, L100.0100 #### [facility] [address] [place], [address] Hemoglobin (Bld) [Mass/Vol] 14.1 g/dL Normal 13.0-16.5 [facility] Comment on above: Performed By: #### L 500.2500, L100.0100 #### [facility] [address] [place], [address] IG% 0.400 Normal 0.0-0.9 [facility] Comment on above: Result Comment: IG% - Immature Granulocytes (promyelocytes, myelocytes and metamyelocytes) > 1% indicates that a LEFT SHIFT is Present. Performed By: #### L 500.2500, L100.0100 #### [facility] [address] [place], [address] Lymphocytes/100 WBC (Bld) 22.6 % Normal 19-41 [facility] Comment on above: Performed By: #### L 500.2500, L100.0100 #### [facility] [address] [place], [address] MCH (RBC) [Entitic mass] 30.1 pg Normal 27.0-32.0 [facility] Comment on above: Performed By: #### L 500.2500, L100.0100 #### [facility] [address] [place], [address] MCHC (RBC) [Mass/Vol] 33.7 g/dL Normal 32-36 [facility] Comment on above: Performed By: #### L 500.2500, L100.0100 #### [facility] [address] [place], [address] MCV (RBC) [Entitic vol] 89.3 fL Normal 80-94 [facility] Comment on above: Performed By: #### L 500.2500, L100.0100 #### [facility] [address] [place], [address] Monocytes/100 WBC (Bld) 8.3 % Normal 0-10 [facility] Comment on above: Performed By: #### L 500.2500, L100.0100 #### [facility] [address] [place], [address] Neutrophils/100 WBC (Bld) 65.8 % Normal 47-70 [facility] Comment on above: Performed By: #### L 500.2500, L100.0100 #### [facility] [address] [place], [address] Nucleated RBC (Bld) [#/Vol] 0 10*3/uL Normal 0-5 [facility] Comment on above: Performed By: #### L 500.2500, L100.0100 #### [facility] [address] [place], [address] Platelet mean volume (Bld) [Entitic vol] 9.6 fL Normal 6.2-12.0 [facility] Comment on above: Performed By: #### L 500.2500, L100.0100 #### [facility] [address] [place], [address] Platelets (Bld) [#/Vol] 202 10*3/uL Normal 150-450 [facility] Comment on above: Performed By: #### L 500.2500, L100.0100 #### [facility] [address] [place], [address] RBC (Bld) [#/Vol] 4.69 10*6/uL Normal 4.6-6.2 [facility] Comment on above: Performed By: #### L 500.2500, L100.0100 #### [facility] [address] [place], [address] RDW SD 42.3 fl Normal 35.1-43.9 [facility] Comment on above: Performed By: #### L 500.2500, L100.0100 #### [facility] [address] [place], [address] WBC (Bld) [#/Vol] 7.2 10*3/uL Normal 4.4-11.0 [facility] Comment on above: Performed By: #### L 500.2500, L100.0100 #### [facility] [address] [place], [address] Emergency Department Summary on 10-21-2024 Emergency Department Summary [facility] Medical Records Department [address] [place] [address] Emergency Department Summary 10/21/24 MR#: [id number] Acct: [id number] Name: ALBIN ISSA Rep #: [id number] : 1955 69 From: Manuel Hart DO PCP: Dr. 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 Normal [facility] Urinalysis, Completeon 10-21 WBC 0-5 SEEN Normal 0-5 [facility] Comment on above: Order Comment: TASHI CTOR TO SPECIFY Performed By: #### L 400.0001 #### [facility] [address] [place], [address] BACTERIA 0 SEEN Normal None Seen [facility] Comment on above: Order Comment: TASHI CTOR TO SPECIFY Performed By: #### L 400.0001 #### [facility] [address] [place], [address] EPI,SQUAMOUS 0 SEEN Normal 0-5 [facility] Comment on above: Order Comment: TASHI CTOR TO SPECIFY Performed By: #### L 400.0001 #### [facility] [address] [place], [address] Mucus Ql (Urine sed) 0 SEEN Normal [facility] Comment on above: Order Comment: TASHI CTOR TO SPECIFY Performed By: #### L 400.0001 #### [facility] [address] [place], [address] RBC 0 SEEN Normal 0-5 [facility] Comment on above: Order Comment: TASHI CTOR TO SPECIFY Performed By: #### L 400.0001 #### [facility] [address] [place], [address] Comprehensive Metabolic Prof ilon 09-10-2024 Albumin [Mass/Vol] 3.7 g/dL Normal 3.2-5.0 [facility] Comment on above: Performed By: #### L 500.4100, L502.0500, L500.4050 #### [facility] [address] [place], [address] Albumin/Globulin [Mass ratio] 1.0 {ratio} Normal 0.9-2.4 [facility] Comment on above: Performed By: #### L 500.4100, L502.0500, L500.4050 #### [facility] [address] [place], [address] ALK P 136 U/L High 45-117 [facility] Comment on above: Performed By: #### L 500.4100, L502.0500, L500.4050 #### [facility] [address] [place], [address] ALT [Catalytic activity/Vol] 34 U/L Normal 16-61 [facility] Comment on above: Performed By: #### L 500.4100, L502.0500, L500.4050 #### [facility] [address] [place], [address] AST [Catalytic activity/Vol] 19 U/L Normal 15-37 [facility] Comment on above: Performed By: #### L 500.4100, L502.0500, L500.4050 #### [facility] [address] [place], [address] Bilirubin [Mass/Vol] 0.70 mg/dL Normal 0.20-1.00 [facility] Comment on above: Result Comment: For patients on eltrombopag therapy, use of Dimension Lyndon TBIL is not recommended. Performed By: #### L 500.4100, L502.0500, L500.4050 #### [facility] [address] [place], [address] BUN/CRE 16.0 RATIO Normal 10-20 [facility] Comment on above: Performed By: #### L 500.4100, L502.0500, L500.4050 #### [facility] [address] [place], [address] CA,Total 10.3 mg/dL High 8.5-10.1 [facility] Comment on above: Performed By: #### L 500.4100, L502.0500, L500.4050 #### [facility] [address] [place], [address] Chloride [Moles/Vol] 108 mmol/L High 98-107 [facility] Comment on above: Performed By: #### L 500.4100, L502.0500, L500.4050 #### [facility] [address] [place], [address] CO2 [Moles/Vol] 24.0 mmol/L Normal 21.0-32.0 [facility] Comment on above: Performed By: #### L 500.4100, L502.0500, L500.4050 #### [facility] [address] [place], [address] Creatinine [Mass/Vol] 1.00 mg/dL Normal 0.70-1.30 [facility] Comment on above: Result Comment: The validity of the calculated GFR GFRAA in patients over 70 years has not been determined. Clinical correlation is essential. Performed By: #### L 500.4100, L502.0500, L500.4050 #### [facility] [address] [place], [address] EST GFR - AA 95 mL/min Normal >60 [facility] Comment on above: Result Comment: Afri can Nicaraguan GFR Calc Performed By: #### L 500.4100, L502.0500, L500.4050 #### [facility] [address] [place], [address] GAP 5 Normal 5-15 [facility] Comment on above: Performed By: #### L 500.4100, L502.0500, L500.4050 #### [facility] [address] [place], [address] GFR/1.73 sq M.predicted among non-blacks MDRD (S/P/Bld) [Vol rate/Area] 79 mL/min/{1.73_m2} Normal >60 [facility] Comment on above: Result Comment: Non- GFR Calc Performed By: #### L 500.4100, L502.0500, L500.4050 #### [facility] [address] [place], [address] Globulin (S) [Mass/Vol] 3.6 g/dL Normal 2.2-4.2 [facility] Comment on above: Performed By: #### L 500.4100, L502.0500, L500.4050 #### [facility] [address] [place], [address] Glucose [Mass/Vol] 119 mg/dL High 74-106 [facility] Comment on above: Result Comment: Fast ing Glucose result from 100 to 125 mg/dL suggests IMPAIRED HOMEOSTASIS per A.D.A. criteria. Performed By: #### L 500.4100, L502.0500, L500.4050 #### [facility] [address] [place], [address] Potassium [Moles/Vol] 4.3 mmol/L Normal 3.5-5.1 [facility] Comment on above: Performed By: #### L 500.4100, L502.0500, L500.4050 #### [facility] [address] [place], [address] Sodium [Moles/Vol] 138 mmol/L Normal 136-145 [facility] Comment on above: Performed By: #### L 500.4100, L502.0500, L500.4050 #### [facility] [address] [place], [address] T PROT 7.3 g/dL Normal 6.4-8.2 [facility] Comment on above: Performed By: #### L 500.4100, L502.0500, L500.4050 #### [facility] [address] [place], [address] Urea nitrogen [Mass/Vol] 16 mg/dL Normal 7-18 [facility] Comment on above: Performed By: #### L 500.4100, L502.0500, L500.4050 #### [facility] [address] [place], [address] Lipid Profileon 09-10-2024 Cholesterol [Mass/Vol] 118 mg/dL Normal 200 [facility] Comment on above: Result Comment: <200 mg/dL Desirable 200-240 mg/dL Borderline >240 mg/dL High Risk Performed By: #### L 500.4100, L502.0500, L500.4050 #### [facility] [address] [place], [address] Cholesterol in HDL [Mass/Vol] 39 mg/dL Low [facility] Comment on above: Result Comment: The drugs N-Acetylcysteine and Metamizole may falsely depress this assay. Reference Range HDL <40 mg/dL Low HDL Cholesterol HDL >or= 60 mg/dL High HDL Cholesterol Performed By: #### L 500.4100, L502.0500, L500.4050 #### [facility] [address] [place], [address] Cholesterol in LDL [Mass/Vol] 55 mg/dL Normal 0-130 [facility] Comment on above: Performed By: #### L 500.4100, L502.0500, L500.4050 #### [facility] [address] [place], [address] Cholesterol in VLDL [Mass/Vol] 24 mg/dL Normal 5-40 [facility] Comment on above: Performed By: #### L 500.4100, L502.0500, L500.4050 #### [facility] [address] [place], [address] Triglyceride [Mass/Vol] 121 mg/dL Normal [facility] Comment on above: Result Comment: The drugs N-Acetylcysteine and Metamizole may falsely depress this assay. Serum Triglycerides Reference Interval Normal <150 mg/dL Borderline high 150 - 199 mg/dL High 200 - 499 mg/dL Very High > or = 500 mg/dL Performed By: #### L 500.4100, L502.0500, L500.4050 #### [facility] [address] [place], [address] Microalbumin,Random Urineon 09-10-2024 MICROALBUMIN,UR 11.2 mg/L Normal NO RANGE EST. [facility] Comment on above: Performed By: #### L 500.4100, L502.0500, L500.4050 #### [facility] [address] [place], [address] Extremity Upper without Cont raon 08-01-2024 Extremity Upper without Contra [facility] Imaging Services [address] [place] [address] Extremity Upper without Contra MR#: [id number] Acct: [id number] Name: ALBIN ISSA Rep #: [id number] : 1955 M 69 From: Jhon Gage MD PCP: Dr. Speedy Boswell MD Status: REG CLI Study: Extremity Upper without Contra Date of Exam: 0 08/01/24 Exam# [id number] Ordering Dr: Speedy Boswell MD [id number] EXAM: CT RIGHT UPPER EXTREMITY WITHOUT INTRAVENOUS [...] EDT , CC: Dr. Speedy Boswell MD Well Treatment Offsider: Signed Normal [facility] Extremity Upper without Contra [facility] Imaging Services [address] [place] [address] Extremity Upper without Contra MR#: [id number] Acct: [id number] Name: ALBIN ISSA Rep #: [id number] : 1955 M 69 From: Jhon Gage MD PCP: Dr. Speedy Boswell MD Status: REG CLI Study: Extremity Upper without Contra Date of Exam: 0 08/01/24 Exam# [id number] Ordering Dr: Speedy Boswell MD [id number] EXAM: CT LEFT UPPER EXTREMITY WITHOUT INTRAVENOUS [...] EDT , CC: Dr. 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 Normal [facility] Knee 4 or More Viewson 06-29 Knee 4 or More Views [facility] Imaging Services [address] [place] [address]321 Knee 4 or More Views MR#: [id number] Acct: [id number] Name: ALBIN ISSA Rep #: [id number] : 1955 M 69 From: Francisco Javire Donaldson MD PCP: Dr. Speedy Boswell MD Status: DEP ER Study: Knee 4 or More Views Date of Exam: 06/29/24 Exam# [id number] Ordering Dr: Joce Serrano MD [id number] INDICATION: Trauma, knee injury with pain EXAMINATION/TECHNIQUE [...] Speedy Boswell MD; Dr. Joce Serrano MD Well Treatment Offsider: Signed Normal [facility] Shoulder min 2 Viewson 06-29 Shoulder min 2 Views [facility] Imaging Services [address] [place], [place] [address] Shoulder min 2 Views MR#: [id number] Acct: [id number] Name: ALBIN ISSA Rep #: [id number] : 1955 M 69 From: Francisco Javier Donaldson MD PCP: Dr. Speedy Boswell MD Status: DEP ER Study: Shoulder min 2 Views Date of Exam: 06/29/24 Exam# [id number] Ordering Dr: Joce Serrano MD [id number] INDICATION: Trauma, shoulder injury and pain EXAMINATION/TECHNIQUE [...] Francisco Javier Donaldson MD at 21:50 EDT , CC: Dr. Speedy Boswell MD; Dr. Joce Serrano MD Well Treatment Offsider: Signed Normal [facility] Discharge Instructionon 06-01 Discharge Instruction [facility] Medical Records Department [address] [place] [address] Instructions for Home/Discharge Instructions 06/12/24 0759 MR#: [id number] Acct: [id number] Name: ALBIN ISSA Rep #: [id number] : 1955 69 From: Shasha BRENNAN PCP: [...] DO; Dr. Speedy Boswell MD Signed Normal [facility] Bedside Glucoseon 06-11-2024 FINGERSTICK GLU 124 mg/dL High 74-106 [facility] Comment on above: Result Comment: EVAN GEMENT OF PATIENT CARE PER NURSING PROTOCOL Performed By: #### L 501.080 #### [facility] [address] [facility] [place], [address] MR/POSTOP.ANEon 06-11-2024 MR/POSTOP.[facility] Medical Records Department [address] [place] [address] Anesthesia Postop Eval I 06/11/24 0827 MR#: [id number] Acct: [id number] Name: ALBIN ISSA Rep #: [id number] : 1955 69 From: Desmond Wills CRNA PCP: Dr. Speedy Boswell MD Status:REG SDC Y Race: C Location: [address] Anesthesia: Postop Eval I Current Vital Signs [...] Eval 1 completed: Yes 06/11/24827 Date Desmond Bloshreya C[employer]KER Cosigner Signature: Date CC: Signed Normal [facility] MR/[id number] 06-11-2024 [facility] Medical Records Department [address] [place] [address] Anesthesia Postop Eval II 06/11/24837 MR#: [id number] Acct: [id number] Name: ALBIN ISSA Rep #: [id number] : 1955 69 From: Paco Browne MD PCP: Dr. Speedy Boswell MD Status:REG [facility] Y Race: C Location: [place] [address] Anesthesia Postop Eval I Sum Postop Eval Completion status Anesthesia document: Postop Eval 1 completed: Yes Anesthesia Postop Eval I Summary Anesthesia Postop Eval I Summary: Anesthesia Postop Eval I: Assessment Summary Airway patent Yes 06/11/24 08:28 COCONUT CAND[employer] MAKER.JBLOU Spontaneous unlabored Yes 06/11/24 08:28 [employer]OC[employer].JBLOU respirations Mental status Awake 06/11/24 08:28 [employer].JBLOU nausea No 06/11/24 08:28 [employer].JBLOU Vomiting No 06/11/24 08:28 [employer].JBLOU Anesthesia Postop Eval I: Fluid Summary Crystalloid volume administer 1,000 06/11/24 08:28 COCON[employer]AND[employer] MAKER.JBLOU (ml) Colloids volume administered ( ml) Blood Product volume administered (ml) Total IV fluid infused 1,000 06/11/24 08:28 [employer].JBLOU Anesthesia Postop Eval I: Summary Notes Anesthesia Complication No 06/11/24 08:28 [employer].JBLOU Anesthesia Complication Comment: Post-operative progress note Anesthesia: Postop Eval II Evaluation Mental status: Awake Pain Level: 0 nausea: No Vomiting: No 06/11/24 0838 Date Paco Browne MD Cosigner Signature: Date CC: Signed Normal [facility] Operative Reporton Operative Report [facility] Medical Records Department [address] [place] [address] Operative Report 06/11/2428 MR#: [id number] Acct: [id number] Name: ALBIN ISSA Rep #: [id number] : 1955 69 From: Renny James DO PCP: Dr. Speedy Boswell MD Status:[facility] Location: [place] [address] Report of Operation Date of Procedure: 06/11/24 [...] fat pad debridement Surgeon: Renny James DO Environmental Services Lead: Shasha Fuentes PA-C Anesthesia: General LMA Anesthesiologist: Dr. Browne [...] pad with (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 Normal [facility] Office Visiton 03-30-2024 Follow-up visit [id number] Albin Issa 1955 [facility] Provider Department Center 03/30/2024 237-KEL NIELSEN [facility] SM HUD None Family History Problem Relation Age of Onset Heart attack Mother Cancer Father Comments: liver Family Status - Relation Status Age at Mother Father Daughter Alive Level of Service:[address] [place] OFFICE/OUTPT VISIT,PROCEDURE ONLY Reason for Visit and Comments: Follow-up [686242] - USG left ankle injection Normal [facility] 03-30-2024 [facility] Orthopaedics [facility] Patient Care Instructions [...] the office as soon as possible at [phone] Normal [facility] Progress Noteon 03-30-2024 Progress Note [facility] ORTHOPEDICS AND SPORTS MEDICINE [address] [facility] [address] Dept: [phone] Dept Chief Complaint Patient presents with Follow-up [...] prior to signing but minor errors in oyster picker may have occurred. Normal [facility] No Panel InformationOrdered By: Hannah Howe on 01-16-2024 Prostate Specific Antigen Screen 0.33 ng/mL 0.00-4.00 [facility] Comment on above: This test was perfor med using the TPSA assay method for [employer] chemistry system. Values obtained with differentassay methods cannot be used interchangably.When changing PSA assays in the course of monitoring apatient, additional sequential testing should be carriedout to confirm baseline values. EP PROCEDURE - EPS/ABLATION/ DEVICEon 01-08-2024 EP PROCEDURE - EPS/ABLATION/DEVICE Pt is a 68M ICM s/p [employer] [place] ICD, CAD s/p [place] 2004, s/p CABG 2004, s/p right AKA amputation, HLD. He was evaluated in EP clinic on 11/21/2023 for consultation. He reported occasional dyspnea on exertion. Upon device evaluation on 11/21/2023, it revealed atrial lead noise and battery at BALANCE WHEEL HAND FILER. He underwent successful placement of additional RA lead. Device generator exchanged. Excellent lead parameters. IV Vancomycin is utilized because: Physician/ELECTRONICS ASSEMBLER/PA or pharmacist documentation of increased MRSA rate, [...] EPS/Ablation/Device Ordering Physician: DAVID RAMIREZ Order #: [id number] Study Date: 01/06/2024 Patient Information Name MRN Description Albin Issa [id number] 68 y.o. male Physicians Panel Physicians Referring [...] s/p [employer] [place] DC ICD, CAD s/p [place] 2004, s/p CABG 2004, s/p right AKA amputation, HLD. He was evaluated in EP clinic on 11/21/2023 for consultation. He reported occasional dyspnea on exertion. Upon device evaluation on 11/21/2023, it revealed atrial lead noise and battery at BALANCE WHEEL HAND FILER. He underwent successful placement of additional RA lead. Device generator exchanged. Excellent lead parameters. IV Vancomycin is utilized because: Physician/ELECTRONICS ASSEMBLER/PA or pharmacist documentation of increased MRSA rate, [...] ICD [employer] 2211-36 Current + Rf - Explanted Model/Cat number: [id number] Serial number: [id number] Date Explanted: 01/06/2024 Pocket Location: Pre-pectoral As of 01/06/2024 Status: Explanted Lead Securement: 2 set screws torqued Defibrillator Crd [id number] Fortify Asr Parylene 2 - [id number] - Implanted Inventory item: DEFIBRILLATOR CRD [id number] FORTIFY ASR PARYLENE 2 Model/Cat number: [id number] Serial number: [id number] Pharmaceutical Specialty Representative: GUTIER[employer]Z [employer]ASC[employer] Date Implanted: 01/06/2024 Initial Device: No Pocket Location: Pre-pectoral P (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 Normal [facility] CHEM 6 (LYTES, BUN CREA)on 0 01-07-2024 Anion gap [Moles/Vol] 13 mmol/L Normal 7-17 [facility] Comment on above: Performed By: #### M CHANTELL HOUSE6 #### [facility] (DEFAULT) [address] [place] [address] Chloride [Moles/Vol] 105 mmol/L Normal 98-108 [facility] Comment on above: Performed By: #### Nilam HOUSE CHM6 #### [facility] (DEFAULT) [address] [place] [address] CO2 [Moles/Vol] 25 mmol/L Normal 21-31 [facility] Comment on above: Performed By: #### Nilam HOUSE CHM6 #### [facility] (DEFAULT) [address] [place] [address] Creatinine [Mass/Vol] 1.24 mg/dL Normal 0.70-1.30 [facility] Comment on above: Performed By: #### Nilam HOUSE CHM6 #### [facility] (DEFAULT) [address] [address] GFR/1.73 sq M.predicted among non-blacks MDRD (S/P/Bld) [Vol rate/Area] 63 mL/min/{1.73_m2} Normal >=60 [facility] Comment on above: Result Comment: Repo rted eGFR is based on the CKD-EPI 2020 equation using creatinine, age, and sex. Performed By: #### CHANTELL DYSON6 #### [facility] (DEFAULT) [address] [address] Potassium [Moles/Vol] 4.2 mmol/L Normal 3.5-5.0 [facility] Comment on above: Performed By: #### Nilam HOUSE CHM6 #### [facility] (DEFAULT) [address] [place] [address] Sodium [Moles/Vol] 139 mmol/L Normal 135-145 [facility] Comment on above: Performed By: #### Nilam HOUSE CHM6 #### [facility] (DEFAULT) [address] [place] [address] Urea nitrogen [Mass/Vol] 19 mg/dL Normal 7-25 [facility] Comment on above: Performed By: #### Nilam HOUSE CHM6 #### [facility] (DEFAULT) [address] [place] [address], [place] [address] Urea nitrogen/Creatinine [Mass ratio] 15 mg/mg Normal [facility] Comment on above: Performed By: #### CHANTELL DYSON6 #### [facility] (DEFAULT) [address] [place] [address] Anion gap [Moles/Vol] 13 mmol/L 7 - 17 mmol/L [facility] Chloride [Moles/Vol] 105 mmol/L 98 - 10 8 mmol/L [facility] CO2 [Moles/Vol] 25 mmol/L 21 - 31 mmol/L [facility] Creatinine [Mass/Vol] 1.24 mg/dL 0.70 - 1.30 mg/dL [facility] eGFR, CKD-EPI, Male 63 - PINF [facility] Comment on above: Reported eGFR is bas ed on the CKD-EPI 2020 equation using creatinine, age, and sex. Potassium [Moles/Vol] 4.2 mmol/L 3.5 - 5.0 mmol/L [facility] Sodium [Moles/Vol] 139 mmol/L 135 - 145 mmol/L [facility] Urea nitrogen [Mass/Vol] 19 mg/dL 7 - 25 mg/dL [facility] Urea nitrogen/Creatinine [Mass ratio] 15 mg/mg [facility] DEVICE EVALUATION (SCANNED)o n 01-07-2024 [facility] Radiology Study observation (narrative) [facility] EXTRA LAVENDER TOPon 024 [facility] MAGNESIUMon 01-07-2024 Magnesium [Mass/Vol] 2.1 mg/dL Normal 1.6-2.6 [facility] Comment on above: Performed By: #### CHANTELL DYSON6 #### [facility] (DEFAULT) [address] [place] [address] Interpretation and review of laboratory results Normal [facility] Magnesium [Mass/Vol] 2.1 mg/dL 1.6 - 2 .6 mg/dL [facility] No Panel Informationon 01-07 [facility] CBC AND ELECTRONIC DIFFon Basophils (Bld) [#/Vol] 0.07 10*3/uL Normal 0.00-0.09 [facility] Comment on above: Performed By: #### L AB980 #### [facility] (DEFAULT) [address] [place] [address] Basophils/100 WBC (Bld) 0.8 % Normal [facility] Comment on above: Performed By: #### L AB980 #### [facility] (DEFAULT) [address] [address] DIFF STATUS Electronic Differential Normal [facility] Comment on above: Performed By: #### L [id number] #### [facility] (DEFAULT) [address] [address] Eosinophils (Bld) [#/Vol] 0.32 10*3/uL Normal 0.00-0.48 [facility] Comment on above: Performed By: #### L [id number] #### [facility] (DEFAULT) [address] [address] Eosinophils/100 WBC (Bld) 3.7 % Normal [facility] Comment on above: Performed By: #### L [id number] #### [facility] (DEFAULT) [address] [address] Hematocrit (Bld) [Volume fraction] 41.5 % Normal 39.6-48.8 [facility] Comment on above: Performed By: #### L [id number] #### [facility] (DEFAULT) [address] [address] Hemoglobin (Bld) [Mass/Vol] 13.8 g/dL Normal 13.4-16.8 [facility] Comment on above: Performed By: #### L [id number] #### [facility] (DEFAULT) [address] [address] Immature Grans % 0.6 % Normal [facility] Comment on above: Performed By: #### L [id number] #### [facility] (DEFAULT) [address] [address] Immature Grans Absolute 0.05 K/uL Normal <=0.07 [facility] Comment on above: Performed By: #### L [id number] #### [facility] (DEFAULT) [address] [address] Lymphocytes (Bld) [#/Vol] 2.14 10*3/uL Normal 0.83-3.57 [facility] Comment on above: Performed By: #### L AB980 #### [facility] (DEFAULT) [address] [address] Lymphocytes/100 WBC (Bld) 24.7 % Normal [facility] Comment on above: Performed By: #### L [id number] #### [facility] (DEFAULT) [address] [address] MCV (RBC) [Entitic vol] 89.2 fL Normal 79.0-94.5 [facility] Comment on above: Performed By: #### L AB980 #### [facility] (DEFAULT) [address] [address] Mean Cell Hgb 29.7 pg Normal 26.1-33.3 [facility] Comment on above: Performed By: #### L [id number] #### [facility] (DEFAULT) [address] [address] Mean Cell Hgb Conc 33.3 g/dL Normal 31.9-36.5 [facility] Comment on above: Performed By: #### L [id number] #### [facility] (DEFAULT) [address] [address] Monocytes (Bld) [#/Vol] 0.64 10*3/uL Normal 0.24-0.93 [facility] Comment on above: Performed By: #### L AB980 #### [facility] (DEFAULT) [address] [address] Monocytes/100 WBC (Bld) 7.4 % Normal [facility] Comment on above: Performed By: #### L [id number] #### [facility] (DEFAULT) [address] [place] [address] Nucleated RBC 0.0 /100 WBC Normal <=0.2 [facility] Comment on above: Performed By: #### L [id number] #### [facility] (DEFAULT) [address] [place] [address] Platelet mean volume (Bld) [Entitic vol] 9.3 fL Normal 8.7-12.3 [facility] Comment on above: Performed By: #### L [id number] #### [facility] (DEFAULT) [address] [place] [address] Platelets (Bld) [#/Vol] 220 10*3/uL Normal 146-337 [facility] Comment on above: Performed By: #### L [id number] #### [facility] (DEFAULT) [address] [place] [address] RBC (Bld) [#/Vol] 4.65 10*6/uL Normal 4.38-5.83 [facility] Comment on above: Performed By: #### L [id number] #### [facility] (DEFAULT) [address] [place] [address] RBC Distribution 13.0 % Normal 10.9-14.3 [facility] Comment on above: Performed By: #### L [id number] #### [facility] (DEFAULT) [address] [place] [address] Segs + Bands Auto 62.8 % Normal [facility] Comment on above: Performed By: #### L [id number] #### [facility] (DEFAULT) [address] [place] [address] Segs + Bands,Absolute Auto 5.44 K/uL Normal 1.57-6.19 [facility] Comment on above: Performed By: #### L [id number] #### [facility] (DEFAULT) [address] [place] [address] WBC (Bld) [#/Vol] 8.66 10*3/uL Normal 3.73-10.10 [facility] Comment on above: Performed By: #### L [id number] #### [facility] (DEFAULT) [address] [place] [address] Basophils (Bld) [#/Vol] 0.07 10*3/uL 0.00 - 0.09 K/uL [facility] Basophils/100 WBC (Bld) 0.8 % [facility] Differential cell count method Nom (Bld) Electronic Differential [facility] Eosinophils (Bld) [#/Vol] 0.32 10*3/uL 0.00 - 0.48 K/uL [facility] Eosinophils/100 WBC (Bld) 3.7 % [facility] Erythrocyte distribution width (RBC) [Ratio] 13.0 % 10.9 - 14.3 % [facility] Hematocrit (Bld) [Volume fraction] 41.5 % 39.6 - 48.8 % [facility] Hemoglobin (Bld) [Mass/Vol] 13.8 g/dL 13.4 - 16.8 g/dL [facility] Immature granulocytes (Bld) [#/Vol] 0.05 10*3/uL NINF - 0.07 K/uL [facility] Immature granulocytes/100 WBC (Bld) 0.6 % [facility] Lymphocytes (Bld) [#/Vol] 2.14 10*3/uL 0.83 - 3.57 K/uL [facility] Lymphocytes/100 WBC (Bld) 24.7 % [facility] MCH (RBC) [Entitic mass] 29.7 pg 26.1 - 33.3 pg [facility] MCHC (RBC) [Mass/Vol] 33.3 g/dL 31.9 - 36.5 g/dL [facility] MCV (RBC) [Entitic vol] 89.2 fL 79.0 - 94.5 fL [facility] Monocytes (Bld) [#/Vol] 0.64 10*3/uL 0.24 - 0.93 K/uL [facility] Monocytes/100 WBC (Bld) 7.4 % [facility] Neutrophils (Bld) [#/Vol] 5.44 10*3/uL 1.57 - 6.19 K/uL [facility] Nucleated RBC/100 WBC (Bld) [Ratio] 0.0 % NINF [facility] Platelet mean volume (Bld) [Entitic vol] 9.3 fL 8.7 - 12.3 fL [facility] Platelets (Bld) [#/Vol] 220 10*3/uL 146 - 337 K/uL [facility] RBC (Bld) [#/Vol] 4.65 10*6/uL [facility] Segmented neutrophils/100 WBC (Bld) 62.8 % [facility] WBC (Bld) [#/Vol] 8.66 10*3/uL 3.73 - 10. 10 K/uL [facility] CHEM 7 (LYTES,BUN,CREA,GLUC) on 01-06-2024 Anion gap [Moles/Vol] 14 mmol/L Normal 7-17 [facility] Comment on above: Performed By: #### C HM7 #### [facility] (DEFAULT) [address] [place] [address] Chloride [Moles/Vol] 105 mmol/L Normal 98-108 [facility] Comment on above: Performed By: #### C HM7 #### [facility] (DEFAULT) [address] [place] [address] CO2 [Moles/Vol] 24 mmol/L Normal 21-31 [facility] Comment on above: Performed By: #### C HM7 #### [facility] (DEFAULT) [address] [place] [address] Creatinine [Mass/Vol] 1.23 mg/dL Normal 0.70-1.30 [facility] Comment on above: Performed By: #### C HM7 #### [facility] (DEFAULT) [address] [place] [address] GFR/1.73 sq M.predicted among non-blacks MDRD (S/P/Bld) [Vol rate/Area] 64 mL/min/{1.73_m2} Normal >=60 [facility] Comment on above: Result Comment: Repo rted eGFR is based on the CKD-EPI 2020 equation using creatinine, age, and sex. Performed By: #### C HM7 #### [facility] (DEFAULT) [address] [place] [address] Glucose [Mass/Vol] 128 mg/dL High 70-99 [facility] Comment on above: Performed By: #### C HM7 #### [facility] (DEFAULT) [address] [place] [address] Osmolality [Osmolality] 296 mosm/kg Normal 278-305 [facility] Comment on above: Performed By: #### C HM7 #### [facility] (DEFAULT) [address] [place] [address] Potassium [Moles/Vol] 4.2 mmol/L Normal 3.5-5.0 [facility] Comment on above: Performed By: #### C HM7 #### [facility] (DEFAULT) [address] [address] Sodium [Moles/Vol] 139 mmol/L Normal 135-145 [facility] Comment on above: Performed By: #### C HM7 #### [facility] (DEFAULT) [address] [address] Urea nitrogen [Mass/Vol] 20 mg/dL Normal 7-25 [facility] Comment on above: Performed By: #### C HM7 #### [facility] (DEFAULT) [address] [place] [address] Urea nitrogen/Creatinine [Mass ratio] 16 mg/mg Normal [facility] Comment on above: Performed By: #### C HM7 #### [facility] (DEFAULT) [address] [place] [address] Anion gap [Moles/Vol] 14 mmol/L 7 - 17 mmol/L [facility] Chloride [Moles/Vol] 105 mmol/L 98 - 10 8 mmol/L [facility] CO2 [Moles/Vol] 24 mmol/L 21 - 31 mmol/L [facility] Creatinine [Mass/Vol] 1.23 mg/dL 0.70 - 1.30 mg/dL [facility] eGFR, CKD-EPI, Male 64 - PINF [facility] Comment on above: Reported eGFR is bas ed on the CKD-EPI 2020 equation using creatinine, age, and sex. Glucose [Mass/Vol] 128 mg/dL High 70 - 99 mg/dL [facility] Interpretation and review of laboratory results Abnormal [facility] Osmolality Calc [Osmolality] 296 [facility] Potassium [Moles/Vol] 4.2 mmol/L 3.5 - 5.0 mmol/L [facility] Sodium [Moles/Vol] 139 mmol/L 135 - 145 mmol/L [facility] Urea nitrogen [Mass/Vol] 20 mg/dL 7 - 25 mg/dL [facility] Urea nitrogen/Creatinine [Mass ratio] 16 mg/mg [facility] PT,INR,PTTon 01-06-2024 aPTT Coag (Bld) [Time] 26.8 s Normal 24.0-34.3 [facility] Comment on above: Performed By: #### P TPTT #### [facility] (DEFAULT) [address] [place] [address] INR Coag (PPP) [Relative time] 1.0 {INR} Normal 0.9-1.1 [facility] Comment on above: Performed By: #### P TPTT #### [facility] (DEFAULT) [address] [place] [address] PT Coag (PPP) [Time] 12.6 s Normal 11.9-14.2 [facility] Comment on above: Performed By: #### P TPTT #### [facility] (DEFAULT) [address] [place] [address] aPTT Coag (PPP) [Time] 26.8 s OS [facility] INR Coag (Bld) [Relative time] 1.0 {INR} 0.9 - 1.1 [facility] Interpretation and review of laboratory results Normal [facility] PT Coag (PPP) [Time] 12.6 s [facility] XR CHEST PA AND LATERAL 2 EWSon [...] No pleural effusion. No pneumothorax. Mediastinum and Keke: Normal Cardiac silhouette and great vessels: Cardiomegaly. Unremarkable aorta. Chest Wall: Sternal wires are aligned and intact. IMPRESSION: Limited evaluation. No acute pulmonary finding. Cardiomegaly. Normal [facility] XR Chest PA and Lateralon EXAM: [...] No pleural effusion. No pneumothorax. Mediastinum and Keke: Normal Cardiac silhouette and great vessels: Cardiomegaly. [...] No pleural effusion. No pneumothorax. Mediastinum and Keke: Normal Cardiac silhouette and great vessels: Cardiomegaly. Unremarkable aorta. Chest Wall: Sternal wires are aligned and intact. IMPRESSION IMPRESSION: Limited evaluation. No acute pulmonary finding. Cardiomegaly. [facility] Radiology Study observation (narrative) [facility] XR Chest PA and LateralOrder ed By: Renetta Burgos on 01-06-2024 [facility] Work Phone: Basophil percentageOrdered B y: Speedy Boswell on 11-28-2023 Chloride [Moles/Vol] 109 mmol/L 98-107 [facility] Cholesterol [Mass/Vol] 96 mg/dL <200 [facility] Comment on above: <200 mg/dL Desirable 200-240 mg/dL Borderline >240 mg/dL High Risk Glucose [Mass/Vol] 125 mg/dL 74-106 [facility] Comment on above: Fasting Glucose resu lt from 100 to 125 mg/dL suggests IMPAIRED HOMEOSTASIS per A.D.A. criteria. Potassium [Moles/Vol] 4.1 mmol/L 3.5-5.1 [facility] Sodium [Moles/Vol] 141 mmol/L 136-145 [facility] Triglyceride [Mass/Vol] 91 mg/dL <199 [facility] Comment on above: The drugs N-Acetylcy steine and Metamizole may falsely depress this assay.Serum Triglycerides Reference Interval Normal <150 mg/dL Borderline high 150 - 199 mg/dL High 200 - 499 mg/dL Very High > or = 500 mg/dL Laboratory - Chemistry and C hemistry - challengeOrdered By: Speedy Boswell on 11-28-2023 CO2 [Moles/Vol] 26.0 mmol/L 21.0-32.0 [facility] Urea nitrogen/Creatinine [Mass ratio] 11.7 mg/mg 10-20 [facility] No Panel InformationOrdered By: Speedy Boswell on 11-28-2023 Estimated GFR (MDRD) Amer 72 mL/min >60 [facility] Comment on above: GFR Calc Estimated GFR (MDRD) Non-Af Amer 59 mL/min >60 [facility] Comment on above: Non- GFR Calc Serum or plasma calcium raul urement (mass/volume)Ordered By: Speedy Boswell on 11-28-2023 Calcium [Mass/Vol] 8.9 mg/dL 8.5-10.1 [facility] Serum or plasma cholesterol in HDL measurement (mass/volume)Ordered By: Speedy Boswell on 11-28-2023 Cholesterol in HDL [Mass/Vol] 32 mg/dL >40 [facility] Comment on above: The drugs N-Acetylcy steine and Metamizole may falsely depress this assay. Reference Range HDL <40 mg/dL Low HDL Cholesterol HDL >or= 60 mg/dL High HDL Cholesterol Serum or plasma cholesterol in VLDL measurement (mass/volume)Ordered By: Speedy Boswell on 11-28-2023 Cholesterol in VLDL [Mass/Vol] 18 mg/dL 5-40 [facility] Serum or plasma creatinine m easurement (mass/volume)Ordered By: Speedy Boswell on 11-28-2023 Creatinine [Mass/Vol] 1.28 mg/dL 0.70-1.30 [facility] Comment on above: The validity of the calculated GFR & GFRAA in patients over 70 years has not been determined. Clinical correlation is essential. Serum or plasma low density lipoprotein (LDL) cholesterol measurement (mass/volume)Ordered By: Speedy Boswell on 11-28-2023 Cholesterol in LDL [Mass/Vol] 46 mg/dL 0-130 [facility] Serum or plasma urea nitroge n measurement (mass/volume)Ordered By: Speedy Boswell on 11-28-2023 Urea nitrogen [Mass/Vol] 15 mg/dL 7-18 [facility] Thin prep Papanicolaou smear with manual screeningOrdered By: Speedy Boswell on 11-28-2023 Thin prep Papanicolaou smear with manual screening 6 5-15 [facility] EP PROCEDURE - EPS/ABLATION/ DEVICEon 11-22-2023 EP PROCEDURE - EPS/ABLATION/DEVICE Left arm venogram demonstrated the L axillary, brachiocephalic, inominate all patent to the SVC. Recommendations: Atrial lead replacement as planned. Table formatting from the original result was not included. Albin Issa EP Procedure - EPS/Ablation/Device Ordering Physician: DAVID RAMIREZ Order #: [id number] Study Date: 11/21/2023 Patient Information Name MRN Description Albin Issa [id number] 68 y.o. male Physicians Panel Physicians Referring [...] no ABN associated with this order. Normal [facility] CHEM 7 (LYTES,BUN,CREA,GLUC) on 11-21-2023 Anion gap [Moles/Vol] 16 mmol/L Normal 7-17 [facility] Comment on above: Performed By: #### C HM7 #### [facility] (DEFAULT) [address] [address] Chloride [Moles/Vol] 106 mmol/L Normal 98-108 [facility] Comment on above: Performed By: #### C HM7 #### [facility] (DEFAULT) [address] [address] CO2 [Moles/Vol] 20 mmol/L Low 21-31 [facility] Comment on above: Performed By: #### C HM7 #### [facility] (DEFAULT) [address] [address] Creatinine [Mass/Vol] 1.39 mg/dL High 0.70-1.30 [facility] Comment on above: Performed By: #### C HM7 #### [facility] (DEFAULT) [address] [address] GFR/1.73 sq M.predicted among non-blacks MDRD (S/P/Bld) [Vol rate/Area] 55 mL/min/{1.73_m2} Low >=60 [facility] Comment on above: Result Comment: Repo rted eGFR is based on the CKD-EPI 2020 equation using creatinine, age, and sex. Performed By: #### C HM7 #### [facility] (DEFAULT) [address] [place] [address] Glucose [Mass/Vol] 103 mg/dL High 70-99 [facility] Comment on above: Performed By: #### C HM7 #### [facility] (DEFAULT) [address] [place] [address] Osmolality [Osmolality] 292 mosm/kg Normal 278-305 [facility] Comment on above: Performed By: #### C HM7 #### [facility] (DEFAULT) [address] [place] [address] Potassium [Moles/Vol] 3.9 mmol/L Normal 3.5-5.0 [facility] Comment on above: Performed By: #### C HM7 #### [facility] (DEFAULT) [address] [place] [address] Sodium [Moles/Vol] 138 mmol/L Normal 135-145 [facility] Comment on above: Performed By: #### C HM7 #### [facility] (DEFAULT) [address] [place] [address] Urea nitrogen [Mass/Vol] 22 mg/dL Normal 7-25 [facility] Comment on above: Performed By: #### C HM7 #### [facility] (DEFAULT) [address] [place] [address] Urea nitrogen/Creatinine [Mass ratio] 16 mg/mg Normal [facility] Comment on above: Performed By: #### C HM7 #### [facility] (DEFAULT) [address] [place] [address] DEVICE EVALUATION (SCANNED)o n 11-21-2023 [facility] Radiology Study observation (narrative) [facility] Office Visiton 08-26-2023 Follow-up visit [id number] Albin Issa 1955 M Date Provider Department Center 08/26/2023 [facility] None Family History Problem Relation Age of Onset Heart attack Mother Cancer Father Comments: liver Family Status - Relation Status Age at Mother Father Daughter Alive Level of Service:45871 [place] OFFICE/OUTPT VISIT,PROCEDURE ONLY Reason for Visit and Comments: Follow-up [134226] - USG left subtalar joint injection Normal [facility] PATINSon 08-26-2023 [facility] Orthopaedics and Sports Medicine Patient Care Instructions [...] the office as soon as possible at [phone] [facility] Progress Noteon 08-26-2023 Progress Note [facility] ORTHOPEDICS AND SPORTS MEDICINE [address] [facility] [address] Dept: [phone] Dept Chief Complaint Patient presents with Follow-up [...] prior to signing but minor errors in oyster picker may have occurred. [facility] 36on 08-12-2023 36 Patient was called with a left to call our office back to schedule injection. Scheduling Information[facility] [place] [facility]- 30 min appt [facility] 36 Name of Caller: Mauro Contact Reason for Appointment: Pt would like to get another USG left subtalar joint If he does not answer please leave a voicemail. Please advise. Office Name: KATELIN Normal [facility] Absolute lymphocyte countOrd ered By: ED PROVIDER on 10-27-2022 Lymphocytes Auto (Unsp spec) [#/Vol] 0.99 10*3/uL 0.83-4.51 [facility] Basophil percentageOrdered B y: ED PROVIDER on 10-27-2022 Basophils/100 WBC (Bld) 0.5 % 0-1 [facility] Chloride [Moles/Vol] 106 mmol/L 98-107 [facility] Eosinophils/100 WBC (Bld) 3.5 % 0-5 [facility] Glucose [Mass/Vol] 103 mg/dL 74-106 [facility] Comment on above: Fasting Glucose resu lt from 100 to 125 mg/dL suggests IMPAIRED HOMEOSTASIS per A.D.A. criteria. Neutrophils (Bld) [#/Vol] 3.7 10*3/uL 2.0-7.7 [facility] Neutrophils/100 WBC (Bld) 65.1 % 47-70 [facility] Potassium [Moles/Vol] 4.0 mmol/L 3.5-5.1 [facility] Comment on above: Slight Hemolysis, Re sult may be falsely increased. Sodium [Moles/Vol] 138 mmol/L 136-145 [facility] WBC (Bld) [#/Vol] 5.7 10*3/uL 4.4-11.0 [facility] Blood erythrocytes count (nu mber/volume)Ordered By: ED PROVIDER on 10-27-2022 RBC (Bld) [#/Vol] 4.65 10*6/uL 4.6-6.2 [facility] Blood hemoglobin measurement (mass/volume)Ordered By: ED PROVIDER on 10-27-2022 Hemoglobin (Bld) [Mass/Vol] 14.7 g/dL 13.0-16.5 [facility] Blood lymphocytes/100 leukoc ytesOrdered By: ED PROVIDER on 10-27-2022 Lymphocytes/100 WBC (Bld) 17.4 % 19-41 [facility] Blood monocytes/100 leukocyt esOrdered By: ED PROVIDER on 10-27-2022 Monocytes/100 WBC (Bld) 13.0 % 0-10 [facility] Blood platelet mean volumeOr dered By: ED PROVIDER on 10-27-2022 Platelet mean volume (Bld) [Entitic vol] 9.8 fL 6.2-12.0 [facility] COVID-19 virus antigen assay Ordered By: ED PROVIDER on 10-27-2022 SARS-CoV-2 (COVID-19) Ag IA.rapid Ql (Resp) [facility] Determination of erythrocyte mean corpuscular volume (MCV)Ordered By: ED PROVIDER on 10-27-2022 MCV (RBC) [Entitic vol] 91.6 fL 80-94 [facility] Hematocrit Auto (Bld) [Volum e fraction]Ordered By: ED PROVIDER on 10-27-2022 Hematocrit (Bld) [Volume fraction] 42.6 % 40-54 [facility] Laboratory - Chemistry and C hemistry - challengeOrdered By: ED PROVIDER on 10-27-2022 CO2 [Moles/Vol] 27.0 mmol/L 21.0-32.0 [facility] Urea nitrogen/Creatinine [Mass ratio] 11.9 mg/mg 10-20 [facility] Laboratory - Hematology and Cell countsOrdered By: ED PROVIDER on 10-27-2022 Erythrocyte distribution width (RBC) [Entitic vol] 45.2 fL 35.1-43.9 [facility] Erythrocyte distribution width (RBC) [Ratio] 13.4 % 11.6-14.6 [facility] Immature granulocytes/100 WBC (Bld) 0.500 % 0.0-0.9 [facility] Comment on above: IG% - Immature Granu locytes (promyelocytes, myelocytes and metamyelocytes) > 1% indicates that a LEFT SHIFT is Present. MCH (RBC) [Entitic mass] 31.6 pg 27.0-32.0 [facility] Nucleated RBC/100 WBC (Bld) [Ratio] 0 % 0-5 [facility] MCHC Auto (RBC) [Mass/Vol]Or dered By: ED PROVIDER on 10-27-2022 MCHC (RBC) [Mass/Vol] 34.5 g/dL 32-36 [facility] No Panel InformationOrdered By: ED PROVIDER on 10-27-2022 Estimated Creatinine Clearance Calc 51.75 ml/min [facility] Estimated GFR (MDRD) Amer 68 mL/min >60 [facility] Comment on above: GFR Calc Estimated GFR (MDRD) Non-Af Amer 56 mL/min >60 [facility] Comment on above: Non- GFR Calc Platelets bldOrdered By: ED PROVIDER on 10-27-2022 Platelets (Bld) [#/Vol] 159 10*3/uL 150-450 [facility] Serum or plasma calcium raul urement (mass/volume)Ordered By: ED PROVIDER on 10-27-2022 Calcium [Mass/Vol] 9.8 mg/dL 8.5-10.1 [facility] Serum or plasma creatinine m easurement (mass/volume)Ordered By: ED PROVIDER on 10-27-2022 Creatinine [Mass/Vol] 1.34 mg/dL 0.70-1.30 [facility] Comment on above: The validity of the calculated GFR & GFRAA in patients over 70 years has not been determined. Clinical correlation is essential. Serum or plasma urea nitroge n measurement (mass/volume)Ordered By: ED PROVIDER on 10-27-2022 Urea nitrogen [Mass/Vol] 16 mg/dL 7-18 [facility] Thin prep Papanicolaou smear with manual screeningOrdered By: ED PROVIDER on 10-27-2022 Thin prep Papanicolaou smear with manual screening 5 5-15 [facility] No Panel Informationon 06-20 Prostate Specific Antigen Screen 0.41 ng/mL 0.00-4.00 [facility] Work Phone: Comment on above: This test was perfor med using the TPSA assay method for theShiftgig chemistry system. Values obtained with differentassay methods cannot be used interchangably.When changing PSA assays in the course of monitoring apatient, additional sequential testing should be carriedout to confirm baseline values. Basophil percentageon 2021 Bilirubin [Mass/Vol] 0.40 mg/dL 0.20-1.00 [facility] Work Phone: Comment on above: For patients on eltr ombopag therapy, use of Dimension [place] TBIL is not recommended. Cholesterol [Mass/Vol] 115 mg/dL <200 [facility] Work Phone: Comment on above: <200 mg/dL Desirable 200-240 mg/dL Borderline >240 mg/dL High Risk Protein [Mass/Vol] 7.7 g/dL 6.4-8.2 [facility] Work Phone: [phone] Triglyceride [Mass/Vol] 117 mg/dL <[address] [facility] Work Phone: [phone] Comment on above: The drugs N-Acetylcy steine and Metamizole may falsely depress this assay.Serum Triglycerides Reference Interval Normal <150 mg/dL Borderline high 150 - 199 mg/dL High 200 - 499 mg/dL Very High > or = 500 mg/dL Direct bilirubinon Bilirubin.direct [Mass/Vol] 0.13 mg/dL 0.00-0.30 [facility] Work Phone: [phone] Laboratory - Chemistry and C hemistry - challengeon 05-10-2022 ALP [Catalytic activity/Vol] 138 U/L 45-117 [facility] Work Phone: [phone] [Catalytic activity/Vol] 37 U/L 16-61 [facility] Work Phone: [phone] Globulin (S) [Mass/Vol] 3.8 g/dL 2.2-4.2 [facility] Work Phone: [phone] Serum or plasma albumin raul urement (mass/volume)on 05-10-2022 Albumin [Mass/Vol] 3.9 g/dL 3.2-5.0 [facility] Work Phone: [phone] Serum or plasma cholesterol in HDL measurement (mass/volume)on 05-10-2022 Cholesterol in HDL [Mass/Vol] 30 mg/dL >40 [facility] Work Phone: [phone] Comment on above: The drugs N-Acetylcy steine and Metamizole may falsely depress this assay. Reference Range HDL <40 mg/dL Low HDL Cholesterol HDL >or= 60 mg/dL High HDL Cholesterol Serum or plasma cholesterol in VLDL measurement (mass/volume)on 05-10-2022 Cholesterol in VLDL [Mass/Vol] 23 mg/dL 5-40 [facility] Work Phone: Serum or plasma low density lipoprotein (LDL) cholesterol measurement (mass/volume)on 05-10-2022 Cholesterol in LDL [Mass/Vol] 62 mg/dL 0-130 [facility] Work Phone: Thin prep Papanicolaou smear with manual screeningon 05-10-2022 Thin prep Papanicolaou smear with manual screening 20 U/L 15-37 [facility] Work Phone: [id number] 03-07-2022 Vitamin B6 Lvl 14.0 nmol/L Low 20.0-125.0 [facility] ([place]) Comment on above: Result Comment: INTE RPRETIVE INFORMATION: Vitamin B6 (Pyridoxal 5-Phosphate) Pyridoxal 5'-phosphate measured in a specimen collected following an 8-hour or overnight fast accurately indicates vitamin B6 nutritional status. Non-fasting specimen concentration reflects recent vitamin intake. This test was developed and its performance characteristics determined by [facility]. It has not been cleared or approved by the [place] Food and Drug Administration. This test was performed in a CLIA certified laboratory and is intended for clinical purposes. Performed By: [facility] [address] [place] [id number] Transplant Nurse Practitioner: Leyda Carr MD Performed By: #### A 1C, TSH, FT4, ENA1, COPPER, MMA, VITB6 #### [facility] [address] [place], [place] [address] #### FOL, B12, IFES, SPE #### [facility] [address] [place] [address] IFESon 03-05-2022 IFES Interpretation Immunofixation electrophoresis of serum shows the presence of only polyclonal immunoglobulins (IgG,A,M,[place] and Lambda), No monoclonal protein detected. Normal [facility] ([place]) Comment on above: Result Comment: Elec tronically Signed by: PANKAJ QUIROZ 03/05/2022 08:24 EDT Performed By: #### A 1C, TSH, FT4, ENA1, COPPER, MMA, VITB6 #### [address] [address] #### FOL, B12, IFES, SPE #### [address] [address] SPEon 03-05-2022 SPE Interpretation Normal serum protein electrophoresis pattern. No abnormality detected. Normal [facility] ([place] Comment on above: Result Comment: Elec tronically Signed by: PANKAJ QUIROZ 03/05/2022 08:24 EDT Performed By: #### A 1C, TSH, FT4, ENA1, COPPER, MMA, VITB6 #### [address] [address] #### FOL, B12, IFES, SPE #### [address] [address] [facility] 03-01-2022 Methylmalonic Acid 172 nmol/L Normal 79-376 [facility] ([place]) Comment on above: Result Comment: This test was developed and its performance characteristics determined by [facility]'s [facility] [place] ([facility] It has not been cleared or approved by the FDA. -[facility] is regulated under CLIA as qualified to perform high-complexity testing. This test is used for clinical purposes. It should not be regarded as investigational or for research. Performed By: [facility] [address] [place] [address] Binder Stripper Hand: Hung Arevalo III, M.D. CLIA#: [id number] Performed By: #### A 1C, TSH, FT4, ENA1, COPPER, MMA, VITB6 #### [address] [address] #### FOL, B12, IFES, SPE #### [address] [address] [facility]-2022 Albumin 3.7 G/dL Normal 3.3-5.0 [facility] ([place]) Comment on above: Performed By: #### A 1C, TSH, FT4, ENA1, COPPER, MMA, VITB6 #### [address] [address] #### FOL, B12, IFES, SPE #### [address] [address] Alpha 1 0.2 G/dL Normal 0.1-0.4 [facility] ([place]) Comment on above: Performed By: #### A 1C, TSH, FT4, ENA1, COPPER, MMA, VITB6 #### [place] [address] #### FOL, B12, IFES, SPE #### [place] [address] Alpha 2 0.9 G/dL Normal 0.6-1.2 [facility] ([place]) Comment on above: Performed By: #### A 1C, TSH, FT4, ENA1, COPPER, MMA, VITB6 #### [place] [address] #### FOL, B12, IFES, SPE #### [place] [address] Beta 1.0 G/dL Normal 0.6-1.3 [facility] ([place]) Comment on above: Performed By: #### A 1C, TSH, FT4, ENA1, COPPER, MMA, VITB6 #### [place] [address] #### FOL, B12, IFES, SPE #### [place] [address] Gamma 1.1 G/dL Normal 0.7-1.6 [facility] ([place]) Comment on above: Performed By: #### A 1C, TSH, FT4, ENA1, COPPER, MMA, VITB6 #### [place] [address] #### FOL, B12, IFES, SPE #### [place] [address] CUSon 02-28-2022 Copper (s) 107 UG/DL Normal 70-140 [facility] ([place]) Comment on above: Result Comment: This test was developed and its performance characteristics determined by [facility]'s [facility] [place] ([facility]). It has not been cleared or approved by the FDA. -[facility] is regulated under CLIA as qualified to perform high-complexity testing. This test is used for clinical purposes. It should not be regarded as investigational or for research. Performed By: [place] [address] Binder Stripper Hand: Hung Arevalo III, M.D. CLIA#: [id number] Performed By: #### A 1C, TSH, FT4, ENA1, COPPER, MMA, VITB6 #### [place] [address] #### FOL, B12, IFES, SPE #### [place] [address] ENA1on 02-28-2022 Centromere <0.2 Normal <1.0 [facility] ([place] Comment on above: Result Comment: Anti -centromere antibody is used as in aid in diagnosis of systemic sclerosis. Clinical correlation is required. Test Methodology: Multiplex flow immunoassay. Performed By: [place] [address] Binder Stripper Hand: Hung Arevalo III, M.D. CLIA#: [id number] Performed By: #### A 1C, TSH, FT4, ENA1, COPPER, MMA, VITB6 #### [place] [address] #### FOL, B12, IFES, SPE #### [place] [address] Centromere Ab Qualitative Negative Normal Negative [facility] ([place] Comment on above: Result Comment: Perf ormed By: [place] [address] Binder Stripper Hand: Hung Arevalo III, M.D. CLIA#: [id number] Performed By: #### A 1C, TSH, FT4, ENA1, COPPER, MMA, VITB6 #### [address] [address] #### FOL, B12, IFES, SPE #### [facility] [address] [place], [place] [address] Chromatin Ab Qualitative Negative Normal Negative [facility] ([place] Comment on above: Result Comment: Perf ormed By: [place] [address] Binder Stripper Hand: Hung Arevalo III, M.D. CLIA#: [id number] Performed By: #### A 1C, TSH, FT4, ENA1, COPPER, MMA, VITB6 #### [place] [address] #### FOL, B12, IFES, SPE #### [address] [address] Chromatin Antibody <0.2 Normal <1.0 [facility] ([place]) Comment on above: Result Comment: Test Methodology: Multiplex flow immunoassay. Anti-chromatin antibody is used as an aid in diagnosis of systemic lupus erythematosus. Clinical correlation is required. Test Methodology: Multiplex flow immunoassay. Performed By: [place] [address] Binder Stripper Hand: Hung Arevalo III, M.D. CLIA#: [id number] Performed By: #### A 1C, TSH, FT4, ENA1, COPPER, MMA, VITB6 #### [place] [address] #### FOL, B12, IFES, SPE #### [address] [address] HAILE 1 Antibody <0.2 Normal <1.0 [facility] ([place] Comment on above: Result Comment: Perf ormed By: [place] [address] Binder Stripper Hand: Hung Arevalo III, M.D. CLIA#: [id number] Performed By: #### A 1C, TSH, FT4, ENA1, COPPER, MMA, VITB6 #### [place] [address] #### FOL, B12, IFES, SPE #### [address] [address] HAILE 1 Antibody Qual Negative Normal Negative [facility] ([place] Comment on above: Result Comment: Anti -HAILE-1 antibody is used as an aid in diagnosis of polymyositis and dermatomyositis especially with pulmonary involvement. A negative result cannot rule out polymyositis or dermatomyositis. Clinical correlation is required. Test Methodology: Multiplex flow immunoassay. Performed By: [place] [address] Binder Stripper Hand: Hung Arevalo III, M.D. CLIA#: [id number] Performed By: #### A 1C, TSH, FT4, ENA1, COPPER, MMA, VITB6 #### [place] [address] #### FOL, B12, IFES, SPE #### [address] [address] Ribosomal HAND PLUG SHAPER <0.2 Normal <1.0 [facility] ([place] Comment on above: Result Comment: Perf ormed By: [place] [address] Binder Stripper Hand: Hung Arevalo III, M.D. CLIA#: [id number] Performed By: #### A 1C, TSH, FT4, ENA1, COPPER, MMA, VITB6 #### [place] [address] #### FOL, B12, IFES, SPE #### [address] [address] Ribosomal HAND PLUG SHAPER Qualitative Negative Normal Negative [facility] ([place] Comment on above: Result Comment: Anti -Ribosomal RNA (Ribosomal P) antibody is used as an aid in diagnosis of systemic autoimmune diseases especially systemic lupus erythematosus and mixed connective tissue disease. Cross-reactivity with Anti-gonzales antibody is not uncommon. Clinical correlation is required. Test Methodology: Multiplex flow immunoassay. Performed By: [place] [address] Binder Stripper Hand: Hung Arevalo III, M.D. CLIA#: [id number] Performed By: #### A 1C, TSH, FT4, ENA1, COPPER, MMA, VITB6 #### [place] [address] #### FOL, B12, IFES, SPE #### [place] [address] HAND PLUG SHAPER Antibody 0.3 AI Normal <1.0 [facility] ([place] Comment on above: Result Comment: Anti -HAND PLUG SHAPER antibody is used as an aid in diagnosis of systemic autoimmune diseases especially systemic lupus erythematosus and mixed connective tissue disease. Cross-reactivity with Anti-gonzales antibody is not uncommon. Clinical correlation is required. Test Methodology: Multiplex flow immunoassay. Performed By: [place] [address] Binder Stripper Hand: Hung Arevalo III, M.D. CLIA#: [id number] Performed By: #### A 1C, TSH, FT4, ENA1, COPPER, MMA, VITB6 #### [place] [address] #### FOL, B12, IFES, SPE #### [place] [address] HAND PLUG SHAPER Antibody Qualitative Negative Normal Negative [facility] ([place] Comment on above: Result Comment: Perf ormed By: [place] [address] Binder Stripper Hand: Hung Arevalo III, M.D. CLIA#: [id number] Performed By: #### A 1C, TSH, FT4, ENA1, COPPER, MMA, VITB6 #### [place] [address] #### FOL, B12, IFES, SPE #### [place] [address] Scleroderma Ab, IgG Qualitative Negative Normal Negative [facility] ([place] Comment on above: Result Comment: Perf ormed By: [place] [address] Binder Stripper Hand: Hung Arevalo III, M.D. CLIA#: [id number] Performed By: #### A 1C, TSH, FT4, ENA1, COPPER, MMA, VITB6 #### [place] [address] #### FOL, B12, IFES, SPE #### [place] [address] Scleroderma IgG Ab <0.2 Normal <1.0 [facility] ([place] Comment on above: Result Comment: Scl- 70/Scleroderma antibody test is used as an aid in diagnosis of systemic sclerosis especially the diffuse cutaneous form. A negative result cannot rule out systemic sclerosis. The final interpretation should consider clinical picture and other test results such as anti-centromere antibody. Test Methodology: Multiplex flow immunoassay. Performed By: [place] [address] Binder Stripper Hand: Hung Arevalo III, M.D. CLIA#: [id number] Performed By: #### A 1C, TSH, FT4, ENA1, COPPER, MMA, VITB6 #### [place] [address] #### FOL, B12, IFES, SPE #### [place] [address] Sm Antibody <0.2 Normal <1.0 [facility] ([place] Comment on above: Result Comment: Perf ormed By: [place] [address] Binder Stripper Hand: Hung Arevalo III, M.D. CLIA#: [id number] Performed By: #### A 1C, TSH, FT4, ENA1, COPPER, MMA, VITB6 #### [place] [address] #### FOL, B12, IFES, SPE #### [place] [id number] Sm Antibody Qual Negative Normal Negative [facility] ([place] Comment on above: Result Comment: Anti -Sm (Gonzales) antibody is used as an aid in diagnosis of systemic lupus erythematosus and its presence is associated with renal disease. A negative result cannot rule out systemic lupus erythematosus. Clinical correlation is required. Test Methodology: Multiplex flow immunoassay. Performed By: [place] [address] Binder Stripper Hand: Hung Arevalo III, M.D. CLIA#: [id number] Performed By: #### A 1C, TSH, FT4, ENA1, COPPER, MMA, VITB6 #### [address] [address] #### FOL, B12, IFES, SPE #### [address] [address] SS-A Antibody <0.2 Normal <1.0 [facility] ([place]) Comment on above: Result Comment: Test Methodology: Multiplex flow immunoassay. Anti-SSA (anti-Ro) antibody is used as an aid in diagnosis of a variety of systemic autoimmune diseases, Sjogren's syndrome among others. Clinical correlation is required. Test Methodology: Multiplex flow immunoassay. Performed By: [place] [address] Binder Stripper Hand: Hung Arevalo III, M.D. CLIA#: [id number] Performed By: #### A 1C, TSH, FT4, ENA1, COPPER, MMA, VITB6 #### [place] [address] #### FOL, B12, IFES, SPE #### [address] [address] SS-B Antibody <0.2 Normal <1.0 [facility] ([place] Comment on above: Result Comment: Anti -SSB (anti-La) antibody is used as an aid in diagnosis of a variety of systemic autoimmune diseases, especially for Sjogren's syndrome and systemic lupus erythematosus. Clinical correlation is required. Test Methodology: Multiplex flow immunoassay. Performed By: [facility] [place] [address] Binder Stripper Hand: Hung Arevalo III, M.D. CLIA#: [id number] Performed By: #### A 1C, TSH, FT4, ENA1, COPPER, MMA, VITB6 #### [place] [address] #### FOL, B12, IFES, SPE #### [address] [address] SSA Antibody Qualitative Negative Normal Negative [facility] ([place]) Comment on above: Result Comment: Perf ormed By: [facility] [address] [address] [place] [address] Binder Stripper Hand: Mony Bustos III#: [id number] Performed By: #### A 1C, TSH, FT4, ENA1, COPPER, MMA, VITB6 #### [place] [id number] #### FOL, B12, IFES, SPE #### [place] [address] SSB Antibody Qualitative Negative Normal Negative [facility] ([place] Comment on above: Result Comment: Perf ormed By: [facility] [address] [place] [address] Binder Stripper Hand: Hung Arevalo III, M.D. CLIA#: [id number] Performed By: #### A 1C, TSH, FT4, ENA1, COPPER, MMA, VITB6 #### [place] [address] #### FOL, B12, IFES, SPE #### [place] [address] A1Con 02-27-2022 HbA1c (Bld) [Mass fraction] 5.8 % Normal 4.3-6.4 [facility] ([place] Comment on above: Performed By: #### A 1C, TSH, FT4, ENA1, COPPER, MMA, VITB6 #### [place] [address] #### FOL, B12, IFES, SPE #### [place] [address] B12on 02-27-2022 Cobalamin (Vitamin B12) [Mass/Vol] 536 pg/mL Normal 211-911 [facility] ([place] Comment on above: Performed By: #### A 1C, TSH, FT4, ENA1, COPPER, MMA, VITB6 #### [place] [address] #### FOL, B12, IFES, SPE #### [place] [address] FOLon 02-27-2022 Folate 11.66 ng/mL Normal 5.38-24.00 [facility] ([place] Comment on above: Performed By: #### A 1C, TSH, FT4, ENA1, COPPER, MMA, VITB6 #### [address] [address] #### FOL, B12, IFES, SPE #### [place] [address] FT4on 02-27-2022 Free T4 [Mass/Vol] 0.88 ng/dL Normal 0.76-1.46 [facility] ([place] Comment on above: Performed By: #### A 1C, TSH, FT4, ENA1, COPPER, MMA, VITB6 #### [address] [address] #### FOL, B12, IFES, SPE #### [place] [address] SPEon 02-27-2022 Total Protein 6.9 G/dL Normal 5.7-8.2 [facility] ([place] Comment on above: Result Comment: No te - New Reference Range in effect 20 Performed By: #### A 1C, TSH, FT4, ENA1, COPPER, MMA, VITB6 #### [place] [address] #### FOL, B12, IFES, SPE #### [place] [address] TSHon 02-27-2022 TSH Qn 2.20 m[IU]/L Normal 0.36-3.74 [facility] ([place] Comment on above: Performed By: #### A 1C, TSH, FT4, ENA1, COPPER, MMA, VITB6 #### [place] [address] #### FOL, B12, IFES, SPE #### [place] [address] Absolute lymphocyte counton 02-07-2022 Lymphocytes Auto (Unsp spec) [#/Vol] 1.49 10*3/uL 0.83-4.51 [facility] Work Phone: Basophil percentageon 2021 Basophils/100 WBC (Bld) 0.7 % 0-1 [facility] Work Phone: Chloride [Moles/Vol] 108 mmol/L 98-107 [facility] Work Phone: Eosinophils/100 WBC (Bld) 2.7 % 0-5 [facility] Work Phone: Glucose [Mass/Vol] 125 mg/dL 74-106 [facility] Work Phone: Comment on above: Fasting Glucose resu lt from 100 to 125 mg/dL suggests IMPAIRED HOMEOSTASIS per A.D.A. criteria. Neutrophils (Bld) [#/Vol] 3.5 10*3/uL 2.0-7.7 [facility] Work Phone: Neutrophils/100 WBC (Bld) 62.5 % 47-70 [facility] Work Phone: Potassium [Moles/Vol] 4.0 mmol/L 3.5-5.1 [facility] Work Phone: Comment on above: Slight Hemolysis, Re sult may be falsely increased. Sodium [Moles/Vol] 139 mmol/L 136-145 [facility] Work Phone: WBC (Bld) [#/Vol] 5.6 10*3/uL 4.4-11.0 [facility] Work Phone: Blood erythrocytes count (nu mber/volume)on 02-07-2022 RBC (Bld) [#/Vol] 5.16 10*6/uL 4.6-6.2 [facility] Work Phone: Blood hemoglobin measurement (mass/volume)on 02-07-2022 Hemoglobin (Bld) [Mass/Vol] 16.1 g/dL 13.0-16.5 [facility] Work Phone: Blood lymphocytes/100 leukoc yteson 02-07-2022 Lymphocytes/100 WBC (Bld) 26.7 % 19-41 [facility] Work Phone: Blood monocytes/100 leukocyt eson 02-07-2022 Monocytes/100 WBC (Bld) 7.2 % 0-10 [facility] Work Phone: [phone] Blood platelet mean volumeon 02-07-2022 Platelet mean volume (Bld) [Entitic vol] 9.7 fL 6.2-12.0 [facility] Work Phone: Determination of erythrocyte mean corpuscular volume (MCV)on 02-07-2022 MCV (RBC) [Entitic vol] 89.5 fL 80-94 [facility] Work Phone: Hematocrit Auto (Bld) [Volum e fraction]on 02-07-2022 Hematocrit (Bld) [Volume fraction] 46.2 % 40-54 [facility] Work Phone: Laboratory - Chemistry and C hemistry - challengeon 02-07-2022 CO2 [Moles/Vol] 24.0 mmol/L 21.0-32.0 [facility] Work Phone: [phone] Urea nitrogen/Creatinine [Mass ratio] 10.5 mg/mg 10-20 [facility] Work Phone: [phone] Laboratory - Hematology and Cell countson 02-07-2022 Erythrocyte distribution width (RBC) [Entitic vol] 41.1 fL 35.1-43.9 [facility] Work Phone: [phone] Erythrocyte distribution width (RBC) [Ratio] 12.5 % 11.6-14.6 [facility] Work Phone: [phone] Immature granulocytes/100 WBC (Bld) 0.200 % 0.0-0.9 [facility] Work Phone: [phone] Comment on above: IG% - Immature Granu locytes (promyelocytes, myelocytes and metamyelocytes) > 1% indicates that a LEFT SHIFT is Present. MCH (RBC) [Entitic mass] 31.2 pg 27.0-32.0 [facility] Work Phone: Nucleated RBC/100 WBC (Bld) [Ratio] 0 % 0-5 [facility] Work Phone: MCHC Auto (RBC) [Mass/Vol]on 02-07-2022 MCHC (RBC) [Mass/Vol] 34.8 g/dL 32-36 [facility] Work Phone: No Panel Informationon 02-07 Estimated GFR (MDRD) Amer 75 mL/min >60 [facility] Work Phone: Comment on above: GFR Calc Estimated GFR (MDRD) Non-Af Amer 62 mL/min >60 [facility] Work Phone: Comment on above: Non- GFR Calc Platelets bldon 02-07-2022 Platelets (Bld) [#/Vol] 225 10*3/uL 150-450 [facility] Work Phone: Serum or plasma calcium raul urement (mass/volume)on 02-07-2022 Calcium [Mass/Vol] 9.6 mg/dL 8.5-10.1 [facility] Work Phone: Serum or plasma creatinine m easurement (mass/volume)on 02-07-2022 Creatinine [Mass/Vol] 1.24 mg/dL 0.70-1.30 [facility] Work Phone: Comment on above: The validity of the calculated GFR & GFRAA in patients over 70 years has not been determined. Clinical correlation is essential. Serum or plasma urea nitroge n measurement (mass/volume)on 02-07-2022 Urea nitrogen [Mass/Vol] 13 mg/dL 7-18 [facility] Work Phone: [phone] Thin prep Papanicolaou smear with manual screeningon 02-07-2022 Thin prep Papanicolaou smear with manual screening 7 5-15 [facility] Work Phone: [phone] Basophil percentageon 2021 Chloride [Moles/Vol] 111 mmol/L 98-107 [facility] Work Phone: [phone] Cholesterol [Mass/Vol] 150 mg/dL <200 [facility] Work Phone: [phone] Comment on above: <200 mg/dL Desirable 200-240 mg/dL Borderline >240 mg/dL High Risk Glucose [Mass/Vol] 96 mg/dL 74-106 [facility] Work Phone: [phone] Potassium [Moles/Vol] 4.0 mmol/L 3.5-5.1 [facility] Work Phone: [phone] Sodium [Moles/Vol] 141 mmol/L 136-145 [facility] Work Phone: [phone] Triglyceride [Mass/Vol] 140 mg/dL [facility] Work Phone: [phone] Comment on above: The drugs N-Acetylcy steine and Metamizole may falsely depress this assay.Serum Triglycerides Reference Interval Normal <150 mg/dL Borderline high 150 - 199 mg/dL High 200 - 499 mg/dL Very High > or = 500 mg/dL Laboratory - Chemistry and C hemistry - challengeon 01-24-2022 CO2 [Moles/Vol] 24.0 mmol/L 21.0-32.0 [facility] Work Phone: [phone] Urea nitrogen/Creatinine [Mass ratio] 10.3 mg/mg 10-20 [facility] Work Phone: [phone] No Panel Informationon 01-24 Estimated GFR (MDRD) Amer 74 mL/min >60 [facility] Work Phone: Comment on above: GFR Calc Estimated GFR (MDRD) Non-Af Amer 61 mL/min >60 [facility] Work Phone: [phone] Comment on above: Non- GFR Calc Serum or plasma calcium raul urement (mass/volume)on 01-24-2022 Calcium [Mass/Vol] 10.0 mg/dL 8.5-10.1 [facility] Work Phone: [phone] Serum or plasma cholesterol in HDL measurement (mass/volume)on 01-24-2022 Cholesterol in HDL [Mass/Vol] 30 mg/dL [facility] Work Phone: [phone] Comment on above: The drugs N-Acetylcy steine and Metamizole may falsely depress this assay. Reference Range HDL <40 mg/dL Low HDL Cholesterol HDL >or= 60 mg/dL High HDL Cholesterol Serum or plasma cholesterol in VLDL measurement (mass/volume)on 01-24-2022 Cholesterol in VLDL [Mass/Vol] 28 mg/dL 5-40 [facility] Work Phone: Serum or plasma creatinine m easurement (mass/volume)on 01-24-2022 Creatinine [Mass/Vol] 1.26 mg/dL 0.70-1.30 [facility] Work Phone: Comment on above: The validity of the calculated GFR & GFRAA in patients over 70 years has not been determined. Clinical correlation is essential. Serum or plasma low density lipoprotein (LDL) cholesterol measurement (mass/volume)on 01-24-2022 Cholesterol in LDL [Mass/Vol] 92 mg/dL 0-130 [facility] Work Phone: Serum or plasma urea nitroge n measurement (mass/volume)on 01-24-2022 Urea nitrogen [Mass/Vol] 13 mg/dL 7-18 [facility] Work Phone: Thin prep Papanicolaou smear with manual screeningon 01-24-2022 Thin prep Papanicolaou smear with manual screening 6 5-15 [facility] Work Phone: Absolute lymphocyte counton 01-15-2022 Lymphocytes Auto (Unsp spec) [#/Vol] 1.95 10*3/uL 0.83-4.51 [facility] Work Phone: Basophil percentageon 2021 Basophils/100 WBC (Bld) 0.6 % 0-1 [facility] Work Phone: Chloride [Moles/Vol] 110 mmol/L 98-107 [facility] Work Phone: Eosinophils/100 WBC (Bld) 3.4 % 0-5 [facility] Work Phone: Glucose [Mass/Vol] 106 mg/dL 74-106 [facility] Work Phone: Comment on above: Fasting Glucose resu lt from 100 to 125 mg/dL suggests IMPAIRED HOMEOSTASIS per A.D.A. criteria. Neutrophils (Bld) [#/Vol] 5.1 10*3/uL 2.0-7.7 [facility] Work Phone: Neutrophils/100 WBC (Bld) 62.1 % 47-70 [facility] Work Phone: [phone] Potassium [Moles/Vol] 3.7 mmol/L 3.5-5.1 [facility] Work Phone: [phone] Sodium [Moles/Vol] 139 mmol/L 136-145 [facility] Work Phone: [phone] WBC (Bld) [#/Vol] 8.1 10*3/uL 4.4-11.0 [facility] Work Phone: [phone] Basophil percentage 5-10 SEEN /hpf [facility] Work Phone: Bilirubin Test strip Ql (U)o n 01-15-2022 Bilirubin Ql (U) Negative Negative [facility] Work Phone: Blood erythrocytes count (nu mber/volume)on 01-15-2022 RBC (Bld) [#/Vol] 4.96 10*6/uL 4.6-6.2 [facility] Work Phone: Blood hemoglobin measurement (mass/volume)on 01-15-2022 Hemoglobin (Bld) [Mass/Vol] 14.8 g/dL 13.0-16.5 [facility] Work Phone: Blood lymphocytes/100 leukoc yteson 01-15-2022 Lymphocytes/100 WBC (Bld) 24.0 % 19-41 [facility] Work Phone: [phone] Blood monocytes/100 leukocyt eson 01-15-2022 Monocytes/100 WBC (Bld) 9.0 % 0-10 [facility] Work Phone: Blood platelet mean volumeon 01-15-2022 Platelet mean volume (Bld) [Entitic vol] 9.9 fL 6.2-12.0 [facility] Work Phone: Determination of erythrocyte mean corpuscular volume (MCV)on 01-15-2022 MCV (RBC) [Entitic vol] 89.1 fL 80-94 [facility] Work Phone: [phone] Hematocrit Auto (Bld) [Volum e fraction]on 01-15-2022 Hematocrit (Bld) [Volume fraction] 44.2 % 40-54 [facility] Work Phone: [phone] Ketones Test strip Ql (U)on 01-15-2022 Ketones Ql (U) 5 mg/dl Negative [facility] Work Phone: Laboratory - Chemistry and C hemistry - challengeon 01-15-2022 CO2 [Moles/Vol] 24.0 mmol/L 21.0-32.0 [facility] Work Phone: [phone] Urea nitrogen/Creatinine [Mass ratio] 9.1 mg/mg 10-20 [facility] Work Phone: [phone] Laboratory - Hematology and Cell countson 01-15-2022 Erythrocyte distribution width (RBC) [Entitic vol] 42.2 fL 35.1-43.9 [facility] Work Phone: [phone] Erythrocyte distribution width (RBC) [Ratio] 12.9 % 11.6-14.6 [facility] Work Phone: [phone] Immature granulocytes/100 WBC (Bld) 0.900 % 0.0-0.9 [facility] Work Phone: [phone] Comment on above: IG% - Immature Granu locytes (promyelocytes, myelocytes and metamyelocytes) > 1% indicates that a LEFT SHIFT is Present. MCH (RBC) [Entitic mass] 29.8 pg 27.0-32.0 [facility] Work Phone: Nucleated RBC/100 WBC (Bld) [Ratio] 0 % 0-5 [facility] Work Phone: [phone] MCHC Auto (RBC) [Mass/Vol]on 01-15-2022 MCHC (RBC) [Mass/Vol] 33.5 g/dL 32-36 [facility] Work [facility]: Mucus LM Ql (Urine sed)on Mucus Ql (Urine sed) 0 SEEN /hpf [facility] Work Phone: Nitrite Test strip Ql (U)on 01-15-2022 Nitrite Ql (U) Negative Negative [facility] Work Phone: No Panel Informationon 01-15 Estimated Creatinine Clearance Calc 41.61 ml/min [facility] Work Phone: Estimated GFR (MDRD) Amer 47 mL/min >60 [facility] Work Phone: Comment on above: GFR Calc Estimated GFR (MDRD) Non-Af Amer 39 mL/min >60 [facility] Work Phone: Comment on above: Non- GFR Calc Platelets bldon 01-15-2022 Platelets (Bld) [#/Vol] 230 10*3/uL 150-450 [facility] Work Phone: Protein Test strip Ql (U)on 01-15-2022 Protein Ql (U) Negative Negative [facility] Work Phone: Serum or plasma calcium raul urement (mass/volume)on 01-15-2022 Calcium [Mass/Vol] 9.5 mg/dL 8.5-10.1 [facility] Work Phone: Serum or plasma creatinine m easurement (mass/volume)on 01-15-2022 Creatinine [Mass/Vol] 1.86 mg/dL 0.70-1.30 [facility] Work Phone: Comment on above: The validity of the calculated GFR & GFRAA in patients over 70 years has not been determined. Clinical correlation is essential. Serum or plasma urea nitroge n measurement (mass/volume)on 01-15-2022 Urea nitrogen [Mass/Vol] 17 mg/dL 7-18 [facility] Work Phone: Squamous epithelial cells de tection in urine sediment by light microscopyon 01-15-2022 Epithelial cells.squamous LM Ql (Urine sed) 0 SEEN /hpf [facility] Work Phone: Thin prep Papanicolaou smear with manual screeningon 01-15-2022 Thin prep Papanicolaou smear with manual screening 5 5-15 [facility] Work Phone: Urine blood detectionon 01-02 RBC Ql (U) Negative Negative [facility] Work Phone: RBC Ql (U) 0 SEEN /hpf [facility] Work Phone: Urine clarityon 01-15-2022 Clarity (U) Clear Clear [facility] Work Phone: Urine color determinationon 01-15-2022 Color (U) Yellow Yellow [facility] Work Phone: Urine glucose detectionon Glucose Ql (U) Normal mg/dl Normal [facility] Work Phone: Urine leukocyte esterase det ection by dipstickon 01-15-2022 Leukocyte esterase Test strip Ql (U) 25 /ul Negative [facility] Work Phone: Urine pHon 01-15-2022 pH (U) 6.0 [pH] [facility] Work Phone: Urine sediment bacteria coun t by microscopy (number/high power field)on 01-15-2022 Bacteria LM.HPF (Urine sed) [#/Area] 0 /[HPF] None Seen [facility] Work Phone: Urine specific gravity measu rementon 01-15-2022 Specific gravity (U) [Rel density] 1.015 [facility] Work Phone: Urobilinogen Auto test strip Ql (U)on 01-15-2022 Urobilinogen Ql (U) Normal mg/dl Normal [facility] Work Phone: COVID-19Ordered By: Hamilton marc on 05-31-2021 SARS-CoV-2 (COVID-19) RNA TAYLA+probe Ql (Unsp spec) Not detected Not Detected [facility] Work Phone: Comment on above: Not Detected. Expected Result: Not Detected _ Real-time, RT-PCR performed on the [employer] System by the [facility] Microbiology Service. Negative results do not preclude SARS-CoV-2 infection and should not be used as the sole basis for treatment or other patient management decisions. This assay was developed by [employer] and distributed under an Emergency Use Authorization (EUA) granted by the FDA for the qualitative detection of SARS-CoV-2 nucleic acid. Test Performed by [facility], [address] [place] [id number] [facility] Work Phone: [id number] 05-31-2021 SARS-CoV-2 (COVID-19) RNA TAYLA+probe Ql (Unsp spec) SARS-CoV-2 --> Status: F Not Detected. Expected Result: Not Detected _ Real-time, RT-PCR performed on the [employer] System by the [facility] Service. Negative results do not preclude SARS-CoV-2 infection and should not be used as the sole basis for treatment or other patient management decisions. This assay was developed by [employer] and distributed under an Emergency Use Authorization (EUA) granted by the FDA for the qualitative detection of SARS-CoV-2 nucleic acid. Expected Result: Not Detected _ Real-time, RT-PCR performed on the [employer] System by the [employer] Service. Negative results do not preclude SARS-CoV-2 infection and should not be used as the sole basis for treatment or other patient management decisions. This assay was developed by [employer] and distributed under an Emergency Use Authorization (EUA) granted by the FDA for the qualitative detection of SARS-CoV-2 nucleic acid. Normal [facility] Comment on above: Performed By: #### C OVID #### [facility] [address] [place] [phone] VL DUP LOWER EXTREMITY VENOU S BILATERALOrdered By: Hamilton Mckinnon on 05-29-2021 [facility] -------- Lower Extremity Venous Duplex Report Patient Luis Manuel : 1955 Study 05/29/2021 Name: Albin Zazueta (66yrs) Date: Patient [id number] Age: 66 Account: [id number] ID: Gender: Nilam Loc: 6111 BP: Ordering Physician: Hamilton Mckinnon Furniture Arranger: Silva Ann RVT Interpreting Physician: Paco Tijerina M.D. -------- Location: [facility] -------- Indications: Lower extremity swelling and [...] supine position. Images were obtained using a [employer] E9 vascular ultrasound machine. -------- Venous flow [...] + -------+ --------+ (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 [employer] Work Phone: [place], [employer] Incoming Cardiology Results From [employer] - 05/29/2021 4:51 PM EDT [facility] -------- Lower Extremity Venous Duplex Report Patient Luis Manuel, : 1955 Study 05/29/2021 Name: Albin Zazueta (66yrs) Date: Patient Age: 66 Account: [id number] ID: Gender: M Loc: 6111 BP: Ordering Physician: Hamilton Mckinnon Furniture Arranger: ARACELI TraceyT Interpreting Physician: Paco Tijerina M.D. -------- Location: [facility] -------- Indications: Lower extremity swelling and [...] supine position. Images were obtained using a [employer] E9 vascular ultrasound machine. -------- Venous flow [...] signed by Paco Tijerina M.D. 05/29/2021 16:51 [facility] Work Phone: [facility] Work Phone: VL Venous Duplex US Lower Ex t Bilateralon 05-29-2021 VL Venous Duplex US Lower Ext Bilateral Patient Name: ALBIN ISSA Ultrasound ACCESSION EXAM DATE/TIME PROCEDURE ORDERING PROVIDER [id number] 05/29/2021 15:17 EDT VL Venous Duplex [place] [id number] -[facility] [facility] Lower Ext Bilateral CPT code 74938 Reason For Exam (VL Venous Duplex US Lower Ext Bilateral) edema Report [facility] -------- Lower Extremity Venous Duplex Report Patient DO Luis ManuelB: 1955 Study 05/29/2021 Name: Albin Zazueta (66yrs) Date: Patient [id number] Age: 66 Account: [id number] ID: Gender: M Loc: 6111 BP: Ordering Physician: Hamilton Mckinnon Furniture Arranger: Silva Ann T Interpreting Physician: Paco Tijerina M.D. -------- Location: [facility] -------- Indications: Lower extremity swelling and [...] Images were obtained Ultrasound Report using a [employer] E9 vascular ultrasound machine. -------- Venous flow [...] -------+ --------+ (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 Normal [facility] Basic Metabolic Panelon 06-2 -2020 Anion gap [Moles/Vol] 5 mmol/L Normal 3-13 [facility] Comment on above: Performed By: #### C OVID #### [facility] [address], [place] Calcium [Mass/Vol] 9.4 mg/dL Normal 8.4-10.[address] [facility] Comment on above: Performed By: #### C OVID #### [facility] [address], [place] CO2 [Moles/Vol] 23 mmol/L Normal 22-30 [facility] Comment on above: Performed By: #### C OVID #### [facility] [address], [place] Glucose [Mass/Vol] 122 mg/dL High 70-[address] [facility] Comment on above: Performed By: #### C OVID #### [facility] [address], [place] Urea nitrogen [Mass/Vol] 15 mg/dL Normal 7-[address] [facility] Comment on above: Performed By: #### C OVID #### [facility] [address], [place] Creatinine [Mass/Vol] 1.13 mg/dL Normal 0.52-1.25 [facility] Comment on above: Performed By: #### C OVID #### [facility] [address], [place] GFR/1.73 sq M.predicted among blacks MDRD (S/P/Bld) [Vol rate/Area] 78.0 mL/min/{1.73_m2} Normal >60 [facility] Comment on above: Performed By: #### C OVID #### [facility] [address], [place] GFR/1.73 sq M.predicted among non-blacks MDRD (S/P/Bld) [Vol rate/Area] 67.3 mL/min/{1.73_m2} Normal >60 [facility] Comment on above: Result Comment: KDIG [...] secretion. Performed By: #### C OVID #### [place] [address], [place] Potassium [Moles/Vol] 4.5 mmol/L Normal 3.5-5.1 [facility] Comment on above: Performed By: #### C OVID #### [place] [address], [place] Chloride [Moles/Vol] 109 mmol/L High 98-107 [facility] Comment on above: Performed By: #### C OVID #### [address] Sodium [Moles/Vol] 137 mmol/L Normal 135-[address] [facility] Comment on above: Performed By: #### C OVID #### [address] Basic Metabolic PanelOrdered By: Sd Moreno on 05-25-2021 Anion gap [Moles/Vol] 5 mmol/L 3 - 13 mmol/L [facility] Work Phone: Calcium [Mass/Vol] 9.4 mg/dL 8.4 - 10. 4 mg/dL [facility] Work Phone: Chloride [Moles/Vol] 109 mmol/L High 98 - 10 7 mmol/L [facility] Work Phone: CO2 [Moles/Vol] 23 mmol/L 22 - 30 mmol/L [facility] Work Phone: [phone] Creatinine [Mass/Vol] 1.13 mg/dL 0.52 - 1.25 mg/dL [employer] Work Phone: [phone] EGFR IF NonAfrican [place]ar[place]uan 67.3 mL/min >60 [facility] [employer] Work Phone: [phone] Comment on above: KDIGO guidelines pro vide [...] MDRD (S/P/Bld) [Vol rate/Area] 78.0 mL/min/{1.73_m2} >60 [facility] [employer] Work Phone: [phone] Glucose [Mass/Vol] 122 mg/dL High 70 - 100 mg/dL [employer] Work Phone: [phone] Potassium [Moles/Vol] 4.5 mmol/L 3.5 - 5.1 mmol/L [facility] [employer] Work Phone: [phone] Sodium [Moles/Vol] 137 mmol/L 135 - 145 mmol/L [employer] Work Phone: [phone] Urea nitrogen (BldV) [Mass/Vol] 15 mg/dL 7 - 20 mg/dL [employer] Work Phone: [phone] CBC Auto DifferentialOrdered By: Sd Moreno on 05-25-2021 Absolute Baso # 0.0 10*3/uL 0.0 - 0.2 10*3/uL [facility] [employer] Work Phone: [phone] Absolute Neut # 9.2 10*3/uL High 1.8 - 7.0 10*3/uL [facility] Work Phone: 1 Basophils/100 WBC (Bld) 0.1 % 0.0 - 2.0 % [employer] Work Phone: Eosinophils (Bld) [#/Vol] 0.0 10*3/uL 0.0 - 0.5 10*3/uL [facility] Work Phone: 22 Eosinophils/100 WBC (Bld) 0.1 % Low 1.0 - 6.0 % [employer] Work Phone: 1 Granulocytes/100 WBC (Bld) 88.1 % High 40.0 - 80.0 % [employer] Work Phone: Hematocrit (Bld) [Volume fraction] 34.4 % Low 40.0 - 52.0 % [employer] Work Phone: Hemoglobin.gastrointest inal spec 1 Ql (Stl) 11.9 g/dL Low 13.0 - 18.0 g/dL [employer] Work Phone: Interpretation and review of laboratory results Abnormal [employer] Work Phone: Lymphocytes (Bld) [#/Vol] 0.7 10*3/uL Low 1.0 - 4.3 10*3/uL [employer] Work Phone: 22 Lymphocytes/100 WBC (Bld) 6.6 % Low 20.0 - 40.0 % [employer] Work Phone: MCH (RBC) [Entitic mass] 30.6 pg 26.0 - 34.0 pg [facility] [employer] Work Phone: MCHC (RBC) [Mass/Vol] 34.7 % 32.0 - 36.0 % [facility] Work Phone: MCV (RBC) [Entitic vol] 88.4 fL 80.0 - 98.0 fL [employer] Work Phone: Monocytes (Bld) [#/Vol] 0.5 10*3/uL 0.0 - 0.8 10*3/uL [employer] Work Phone: 22 Monocytes/100 WBC (Bld) 5.1 % 2.0 - 10.0 % [employer] Work Phone: 1 Platelet distribution width (Bld) [Ratio] 13.7 % 11.5 - 14.5 % [employer] Work Phone: 1 Platelet mean volume (Bld) [Entitic vol] 8.0 fL 7.4 - 10.4 fL [employer] Work Phone: 1 Platelets (Bld) [#/Vol] 171 10*3/uL 140 - 440 10*3/uL [employer] Work Phone: 1 RBC (Bld) [#/Vol] 3.90 10*6/uL Low 4.40 - 5.9 0 10*6/uL [employer] Work Phone: 1) WBC (Bld) [#/Vol] 10.4 10*3/uL 3.6 - 10.7 10*3/uL [employer] Work Phone: [phone] Test Per[facility] by [facility], [address] [place] [address] [employer] Work Phone: 1 [employer] Work Phone: [phone] Hemogram w/ Autodiffon 05-25 Abs Baso Cnt 0.0 10*3/uL Normal 0.0-0.2 [facility] Comment on above: Performed By: #### C OVID #### [facility] [employer] [place] [address] Abs Neutrophile Cnt 9.2 10*3/uL High 1.8-7.0 [facility] Comment on above: Performed By: #### C OVID #### [facility] [address] [place] [phone] Basophils/100 WBC (Bld) 0.1 % Normal 0.0-2.0 S [facility] Comment on above: Performed By: #### C OVID #### [facility] [address] [place] [phone] Eosinophils (Bld) [#/Vol] 0.0 10*3/uL Normal 0.0-0.[address] [facility] Comment on above: Performed By: #### C OVID #### [facility] [address] [place] [address] Eosinophils/100 WBC (Bld) 0.1 % Low 1.0-6.[address] [facility] Comment on above: Performed By: #### C OVID #### [facility] [address], [place] Erythrocyte distribution width (RBC) [Ratio] 13.7 % Normal 11.5-14.[address] [facility] Comment on above: Performed By: #### C OVID #### [facility] [address], [place] Granulocytes/100 WBC (Bld) 88.1 % High 40.0-80.[address] [facility] Comment on above: Performed By: #### C OVID #### [place] [address], [place] Hematocrit (Bld) [Volume fraction] 34.4 % Low 40.0-52.[address] [facility] Comment on above: Performed By: #### C OVID #### [place] [address], [place] Hemoglobin (Bld) [Mass/Vol] 11.9 g/dL Low 13.0-18.[address] [facility] Comment on above: Performed By: #### C OVID #### [place] [address], [place] Lymphocytes (Bld) [#/Vol] 0.7 10*3/uL Low 1.0-4.[address] [facility] Comment on above: Performed By: #### C OVID #### [facility] [address], [place] Lymphocytes/100 WBC (Bld) 6.6 % Low 20.0-40.[address] [facility] Comment on above: Performed By: #### C OVID #### [place] [address], [place] MCH (RBC) [Entitic mass] 30.6 pg Normal 26.0-34.[address] [facility] Comment on above: Performed By: #### C OVID #### [place] [address], [place] MCHC 34.7 % Normal 32.0-36.[address] [facility] Comment on above: Performed By: #### C OVID #### [facility] [address], [place] MCV (RBC) [Entitic vol] 88.4 fL Normal 80.0-98.0 S [facility] Comment on above: Performed By: #### C OVID #### [facility] [address], [place] Monocytes (Bld) [#/Vol] 0.5 10*3/uL Normal 0.0-0.[address] [facility] Comment on above: Performed By: #### C OVID #### [place] [address], [place] Monocytes/100 WBC (Bld) 5.1 % Normal 2.0-10.0 S [facility] Comment on above: Performed By: #### C OVID #### [place] [address], [place] Platelet mean volume (Bld) [Entitic vol] 8.0 fL Normal 7.4-10.[address] [facility] Comment on above: Performed By: #### C OVID #### [place] [address], [place] Platelets (Bld) [#/Vol] 171 10*3/uL Normal 140-[address] [facility] Comment on above: Performed By: #### C OVID #### [place] [address], [place] RBC (Bld) [#/Vol] 3.90 10*6/uL Low 4.40-5.[address] [facility] Comment on above: Performed By: #### C OVID #### [place] [address], [place] WBC (Bld) [#/Vol] 10.4 10*3/uL Normal 3.6-10.[address] [facility] Comment on above: Performed By: #### C OVID #### [place] [address] [place] [address] Magnesiumon 05-25-2021 Magnesium [Mass/Vol] 2.0 mg/dL Normal 1.6-2.3 [facility] Comment on above: Performed By: #### C OVID #### [address] [phone] MagnesiumOrdered By: Sd trevino on 05-25-2021 Magnesium [Mass/Vol] 2.0 mg/dL 1.6 - 2 .3 mg/dL [facility] Work Phone: No Panel InformationOrdered By: Sd Moreno on 05-25-2021 Interpretation and review of laboratory results Abnormal [facility] Work Phone: Test Performed by [facility], [address] [place] [address] [facility] Work Phone: [facility] Work Phone: Phosphoruson 05-25-2021 Phosphate [Mass/Vol] 1.8 mg/dL Low 2.5-4.5 [facility] Comment on above: Performed By: #### C OVID #### [address] [phone] PhosphorusOrdered By: Sd Moreno on 05-25-2021 Phosphate [Mass/Vol] 1.8 mg/dL Low 2.5 - 4 .5 mg/dL [facility] Work Phone: Basic Metabolic Panelon 05-03 Calcium [Mass/Vol] 9.3 mg/dL Normal 8.4-10.[address] [facility] Comment on above: Performed By: #### P HOS3, HEMDF, MG3, BMP3 #### [address] [address] Anion gap [Moles/Vol] 5 mmol/L Normal 3-13 [facility] Comment on above: Performed By: #### P HOS3, HEMDF, MG3, BMP3 #### [address] [address] CO2 [Moles/Vol] 23 mmol/L Normal 22-30 [facility] Comment on above: Performed By: #### P HOS3, HEMDF, MG3, BMP3 #### [place] [address] [place], [place] Creatinine [Mass/Vol] 1.02 mg/dL Normal 0.52-1.25 [facility] Comment on above: Performed By: #### P HOS3, HEMDF, MG3, BMP3 #### [place] [address] [place], [place] GFR/1.73 sq M.predicted among blacks MDRD (S/P/Bld) [Vol rate/Area] 88.3 mL/min/{1.73_m2} Normal >60 [facility] Comment on above: Performed By: #### P HOS3, HEMDF, MG3, BMP3 #### [place] [address], [place] GFR/1.73 sq M.predicted among non-blacks MDRD (S/P/Bld) [Vol rate/Area] 76.2 mL/min/{1.73_m2} Normal >60 [facility] Comment on above: Result Comment: KDIG [...] #### P HOS3, HEMDF, MG3, BMP3 #### [facility] [address], [place] Glucose [Mass/Vol] 100 mg/dL Normal 70-[address] [facility] Comment on above: Performed By: #### P HOS3, HEMDF, MG3, BMP3 #### [facility] [address], [place] Urea nitrogen [Mass/Vol] 15 mg/dL Normal 7-[address] [facility] Comment on above: Performed By: #### P HOS3, HEMDF, MG3, BMP3 #### [facility] [address], [place] Chloride [Moles/Vol] 109 mmol/L High 98-107 [facility] Comment on above: Performed By: #### P HOS3, HEMDF, MG3, BMP3 #### [place] [address], [place] Potassium [Moles/Vol] 4.0 mmol/L Normal 3.5-5.1 [facility] Comment on above: Performed By: #### P HOS3, HEMDF, MG3, BMP3 #### [facility] [address], [place] Sodium [Moles/Vol] 137 mmol/L Normal 135-[address] [facility] Comment on above: Performed By: #### P HOS3, HEMDF, MG3, BMP3 #### [facility] [address], [place] Basic Metabolic PanelOrdered By: Linda Mcknight on 05-24-2021 Anion gap [Moles/Vol] 5 mmol/L 3 - 13 mmol/L [facility] Work Phone: Calcium [Mass/Vol] 9.3 mg/dL 8.4 - 10. 4 mg/dL [facility] Work Phone: Chloride [Moles/Vol] 109 mmol/L High 98 - 10 7 mmol/L [facility] Work Phone: CO2 [Moles/Vol] 23 mmol/L 22 - 30 mmol/L [facility] Work Phone: Creatinine [Mass/Vol] 1.02 mg/dL 0.52 - 1.25 mg/dL [facility] Work Phone: EGFR IF NonAfrican [place] 76.2 mL/min >60 [facility] Work Phone: [phone] Comment on above: KDIGO guidelines pro vide [...] MDRD (S/P/Bld) [Vol rate/Area] 88.3 mL/min/{1.73_m2} >60 [employer] Work Phone: [phone] Glucose [Mass/Vol] 100 mg/dL 70 - 100 mg/dL [employer] Work Phone: [phone] Interpretation and review of laboratory results Abnormal [employer] Work Phone: [phone] Potassium [Moles/Vol] 4.0 mmol/L 3.5 - 5.1 mmol/L [employer] Work Phone: [phone] Sodium [Moles/Vol] 137 mmol/L 135 - 145 mmol/L [employer] Work Phone: [phone] Urea nitrogen (BldV) [Mass/Vol] 15 mg/dL 7 - 20 mg/dL [employer] Work Phone: [phone] CBC auto differentialOrdered By: Linda Mcknight on 05-24-2021 Absolute Baso # 0.0 10*3/uL 0.0 - 0.2 10*3/uL [employer] Work Phone: [phone] Absolute Neut # 5.5 10*3/uL 1.8 - 7.0 10*3/uL [employer] Work Phone: [phone] Basophils/100 WBC (Bld) 0.5 % 0.0 - 2.0 % [facility] Work Phone: [phone] Eosinophils (Bld) [#/Vol] 0.3 10*3/uL 0.0 - 0.5 10*3/uL [facility] Work Phone: Eosinophils/100 WBC (Bld) 3.3 % 1.0 - 6.0 % [employer] Work Phone: Granulocytes/100 WBC (Bld) 72.8 % 40.0 - 80.0 % [facility] Work Phone: Hematocrit (Bld) [Volume fraction] 37.4 % Low 40.0 - 52.0 % [facility] Work Phone: Hemoglobin.gastrointest inal spec 1 Ql (Stl) 12.8 g/dL Low 13.0 - 18.0 g/dL [employer] Work Phone: Interpretation and review of laboratory results Abnormal [employer] Work Phone: Lymphocytes (Bld) [#/Vol] 1.3 10*3/uL 1.0 - 4.3 10*3/uL [employer] Work Phone: Lymphocytes/100 WBC (Bld) 17.3 % Low 20.0 - 40.0 % [employer] Work Phone: MCH (RBC) [Entitic mass] 30.8 pg 26.0 - 34.0 pg [employer] Work Phone: MCHC (RBC) [Mass/Vol] 34.3 % 32.0 - 36.0 % [employer] Work Phone: MCV (RBC) [Entitic vol] 89.9 fL 80.0 - 98.0 fL [employer] Work Phone: Monocytes (Bld) [#/Vol] 0.5 10*3/uL 0.0 - 0.8 10*3/uL [facility] Work Phone: Monocytes/100 WBC (Bld) 6.1 % 2.0 - 10.0 % [employer] Work Phone: Platelet distribution width (Bld) [Ratio] 14.2 % 11.5 - 14.5 % [employer] Work Phone: Platelet mean volume (Bld) [Entitic vol] 8.0 fL 7.4 - 10.4 fL [employer] Work Phone: Platelets (Bld) [#/Vol] 169 10*3/uL 140 - 440 10*3/uL [employer] Work Phone: [phone] RBC (Bld) [#/Vol] 4.17 10*6/uL Low 4.40 - 5.9 0 10*6/uL [employer] Work Phone: WBC (Bld) [#/Vol] 7.6 10*3/uL 3.6 - 10.7 10*3/uL [employer] Work Phone: [phone] Test Performed by [facility], [address] [place] [address] [employer] Work Phone: [phone] [employer] Work Phone: [phone] CR Chest 1 View Frontalon CR Chest 1 View Frontal Patient Name: ALBIN ISSA Diagnostic Radiology ACCESSION EXAM DATE/TIME PROCEDURE ORDERING PROVIDER [id number] 05/24/2021 05:59 EDT CR Chest 1 View Frontal MD FONTANA ALEX CPT code 43174 Reason For Exam (CR Chest 1 View [...] Transcribed Date and Time: 05/24/2021 8:[address] [facility] CR Elbow 3+ Views Lefton CR Elbow 3+ Views Left Patient Name: ALBIN ISSA Diagnostic Radiology ACCESSION EXAM DATE/TIME PROCEDURE ORDERING PROVIDER [id number] 05/24/2021 05:59 EDT CR Elbow 3+ Views Left MD FONTANA ALEX CPT code 69466 Reason For Exam (CR Elbow 3+ Views [...] Transcribed Date and Time: 05/24/2021 8:[address] [facility] CR Humerus 2+ Views Lefton 0 05-24-2021 CR Humerus 2+ Views Left Patient Name: ALBIN ISSA Diagnostic Radiology ACCESSION EXAM DATE/TIME PROCEDURE ORDERING PROVIDER [id number] 05/24/2021 17:43 EDT CR Humerus 2+ Views Left SD NOR[place]OD CPT code 81469 Reason For Exam (CR Humerus 2+ Views [...] Transcribed Date and Time: 05/24/2021 5:[address] [facility] EKG 12 LeadOrdered By: Juan Alberto Fontana on 05-24-[address] 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1955 Requested By: JUAN ALBERTO FONTANA Order Number: [id number] Reading : Nicolas Gonzales Measurements Intervals [place] Rate: 66 P: 33 IL: 183 QRS: -35 QRSD: 112 T: 52 QT: 426 QTc: 447 Interpretive Statements Sinus rhythm ANTEROLATERAL INFARCT, OLD Electronically Signed On 05-24-2021 15:05:50 EDT by Nicolas Gonzales [employer] Work Phone: [employer] Work Phone: [phone] Hemogram w/ Autodiffon 05-24 Abs Baso Cnt 0.0 10*3/uL Normal 0.0-0.2 [facility] [employer] Comment on above: Performed By: #### P HOS3, HEMDF, MG3, BMP3 #### [address] Abs Neutrophile Cnt 5.5 10*3/uL Normal 1.8-7.0 [facility] Comment on above: Performed By: #### P HOS3, HEMDF, MG3, BMP3 #### [address] Basophils/100 WBC (Bld) 0.5 % Normal 0.0-2.0 [facility] Comment on above: Performed By: #### P HOS3, HEMDF, MG3, BMP3 #### [address] Eosinophils (Bld) [#/Vol] 0.3 10*3/uL Normal 0.0-0.[address] [facility] Comment on above: Performed By: #### P HOS3, HEMDF, MG3, BMP3 #### [address] Eosinophils/100 WBC (Bld) 3.3 % Normal 1.0-6.[address] [facility] Comment on above: Performed By: #### P HOS3, HEMDF, MG3, BMP3 #### [address] Erythrocyte distribution width (RBC) [Ratio] 14.2 % Normal 11.5-14.[address] [facility] Comment on above: Performed By: #### P HOS3, HEMDF, MG3, BMP3 #### [address] Granulocytes/100 WBC (Bld) 72.8 % Normal 40.0-80.[address] [facility] Comment on above: Performed By: #### P HOS3, HEMDF, MG3, BMP3 #### [address] Hematocrit (Bld) [Volume fraction] 37.4 % Low 40.0-52.[address] [facility] Comment on above: Performed By: #### P HOS3, HEMDF, MG3, BMP3 #### [place] [address] [address] [place], [place] Hemoglobin (Bld) [Mass/Vol] 12.8 g/dL Low 13.0-18.[address] [facility] Comment on above: Performed By: #### P HOS3, HEMDF, MG3, BMP3 #### [place] [address] [place], [place] Lymphocytes (Bld) [#/Vol] 1.3 10*3/uL Normal 1.0-4.[address] [facility] Comment on above: Performed By: #### P HOS3, HEMDF, MG3, BMP3 #### [address] Lymphocytes/100 WBC (Bld) 17.3 % Low 20.0-40.[address] [facility] Comment on above: Performed By: #### P HOS3, HEMDF, MG3, BMP3 #### [address] MCH (RBC) [Entitic mass] 30.8 pg Normal 26.0-34.[address] [facility] Comment on above: Performed By: #### P HOS3, HEMDF, MG3, BMP3 #### [address] MCHC 34.3 % Normal 32.0-36.[address] [facility] Comment on above: Performed By: #### P HOS3, HEMDF, MG3, BMP3 #### [place] [address] [address] [place], [place] MCV (RBC) [Entitic vol] 89.9 fL Normal 80.0-98.0 S [facility] Comment on above: Performed By: #### P HOS3, HEMDF, MG3, BMP3 #### [address] Monocytes (Bld) [#/Vol] 0.5 10*3/uL Normal 0.0-0.[address] [facility] Comment on above: Performed By: #### P HOS3, HEMDF, MG3, BMP3 #### [place] [address] [address] [place], [place] Monocytes/100 WBC (Bld) 6.1 % Normal 2.0-10.0 S [facility] Comment on above: Performed By: #### P HOS3, HEMDF, MG3, BMP3 #### [place] [address] [address] [place], [place] Platelet mean volume (Bld) [Entitic vol] 8.0 fL Normal 7.4-10.[address] [facility] Comment on above: Performed By: #### P HOS3, HEMDF, MG3, BMP3 #### [place] [address] [address] [place], [place] Platelets (Bld) [#/Vol] 169 10*3/uL Normal 140-[address] [facility] Comment on above: Performed By: #### P HOS3, HEMDF, MG3, BMP3 #### [place] [address] [address] [place], [place] RBC (Bld) [#/Vol] 4.17 10*6/uL Low 4.40-5.[address] [facility] Comment on above: Performed By: #### P HOS3, HEMDF, MG3, BMP3 #### [place] [address] [address] [place], [place] WBC (Bld) [#/Vol] 7.6 10*3/uL Normal 3.6-10.[address] [facility] Comment on above: Performed By: #### P HOS3, HEMDF, MG3, BMP3 #### [place] [address] [address] [place], [place] Magnesiumon 05-24-2021 Magnesium [Mass/Vol] 2.0 mg/dL Normal 1.6-2.3 [facility] Comment on above: Performed By: #### P HOS3, HEMDF, MG3, BMP3 #### [place] [address] [place], [place] MagnesiumOrdered By: Sd trevino on 05-24-2021 Magnesium [Mass/Vol] 2.0 mg/dL 1.6 - 2 .3 mg/dL [facility] Work Phone: [phone] Panel InformationOrdered By: Linda Mcknight on 05-24-2021 Test Performed by [facility] [employer], [address] [place] [address] [facility] Work Phone: [phone] [employer] Work Phone: [phone] OPERATIVE REPORTOrdered By: 3m Scanning on 05-24-2021 [employer] Work Phone: [phone] Op Noteon 05-24-2021 Op Note [facility] H[facility] TELEMETRY [address] [place] [address] Dept: [phone] Loc: [phone] Operative Report Patient Name: Albin Issa Date of : 1955 Date of Surgery: 05/24/21 Pre-operative diagnosis: Left distal humeral shaft fracture Post-operative diagnosis: Same Procedure(s): Open reduction internal fixation of left humeral shaft fracture (CPT 12585) Surgeon: Paco Biswas M.D. Housetrailer Servicer(s): Frank Leo M.D. and Carol Ascencio M.D. [...] as well as medical complications such as [place], stroke, PE, DVT, and even . Pt [...] Biswas MD at 05/24/21, 6:[address] [facility] Phosphoruson 05-24-2021 Phosphate [Mass/Vol] 2.9 mg/dL Normal 2.5-4.5 [facility] [employer] [facility] Comment on above: Performed By: #### P HOS3, HEMDF, MG3, BMP3 #### [address] [id number] PhosphorusOrdered By: Sd Moreno on 05-24-2021 Phosphate [Mass/Vol] 2.9 mg/dL 2.5 - 4 .5 mg/dL [facility] Work Phone: Prothrombin Timeon 1 INR 1.0 Normal 0.9-1.[address] [facility] Comment on above: Result Comment: Hilario [...] Infarction Performed By: #### C OVID #### [employer] [address] [place] [phone] PT Coag (PPP) [Time] 11.2 s Normal 9.0-12.0 [facility] [employer] Comment on above: Result Comment: . Performed By: #### C OVID #### [facility] [address] [place] [phone] Protime-INROrdered By: Juan Alberto Fontana on 05-24-2021 INR Coag (Bld) [Relative time] 1.0 {INR} [facility] Work Phone: [phone] Comment on above: Recommended Anticoag ulant Therapy: [...] [Time] 11.2 s 9.0 - 12.0 s [facility] Work Phone: Comment on above: . Test Performed by [employer], [address] [place] [address] [facility] Work Phone: [phone] [facility] Work Phone: [phone] TS GELon 05-24-2021 TS GEL ABO Group: O Rh, Gel: POS Antibody Screen Gel: NEG Normal [facility] [employer] Comment on above: Performed By: #### T SGL #### [facility] TYPE AND SCREENOrdered By: Eder Fontana on 05-24-2021 ABO Grouping O [facility] Work Phone: Rh Type Positive [facility] Work Phone: Test Performed by [facility], [address] [place] [address] [facility] Work Phone: [phone] [facility] Work Phone: XR CHEST 1 VWOrdered By: Magdalene Fontana on 05-24-2021 Patient Name: ALBIN ISSA Diagnostic Radiology ACCESSION EXAM DATE/TIME PROCEDURE ORDERING PROVIDER [id number] 05/24/2021 05:59 EDT CR Chest 1 View Frontal MD FONTANA ALEX CPT code 58275 Reason For Exam (CR Chest 1 View [...] LAURA Transcribed Date and Time: 05/24/2021 8:47 [facility] Work Phone: [place], [facility] Incoming Radiology Results From [facility] - 05/24/2021 8:51 AM EDT Patient Name: ALBIN ISSA Diagnostic Radiology ACCESSION EXAM DATE/TIME PROCEDURE ORDERING PROVIDER [id number] 05/24/2021 05:59 EDT CR Chest 1 View Frontal MD FONTANA ALEX CPT code 48339 Reason For Exam (CR Chest 1 View [...] Fontana on 05-24-2021 [facility]: [id number] Radiology ACCESSION EXAM DATE/TIME PROCEDURE ORDERING PROVIDER [id number] 05/24/2021 05:59 EDT CR Elbow 3+ Views Left MD FONTANA ALEX CPT code 38462 Reason For Exam (CR Elbow 3+ Views [...] Phone: [facility], [facility] Incoming Radiology Results From [facility] - 05/24/2021 8:48 AM EDT Patient [facility]: [id number] Diagnostic Radiology ACCESSION EXAM DATE/TIME PROCEDURE ORDERING PROVIDER [id number] 05/24/2021 05:59 EDT CR Elbow 3+ Views Left MD FONTANA ALEX CPT code 30195 Reason For Exam (CR Elbow 3+ Views [...] Moreno on 05-24-2021 Patient [facility]: [id number] Diagnostic Radiology ACCESSION EXAM DATE/TIME PROCEDURE ORDERING PROVIDER [id number] 05/24/2021 17:43 EDT CR Humerus 2+ Views Left 84766 -SD MORENO CPT code 88534 Reason For Exam (CR Humerus 2+ Views [...] and Time: 05/24/2021 5:44 [facility] Work Phone: [facility], [facility] Incoming Radiology Results From [facility] - 05/24/2021 5:47 PM EDT Patient Name: ALBIN ISSA Diagnostic Radiology ACCESSION EXAM DATE/TIME PROCEDURE ORDERING PROVIDER [id number] 05/24/2021 17:43 EDT CR Humerus 2+ Views Left 41904 -JOSHINDIGOER CPT code 36845 Reason For Exam (CR Humerus 2+ Views [...] and Time: 05/24/2021 5:44 [facility] Work Phone: [facility] Work Phone: PROGRESSon 04-20-2020 PROGRESS HNO ID: [id number] Author: Radha Yu Service: ? Author Type: Physical Therapist Type: Progress Notes Filed: 04/20/2020 9:16 AM Note Text: 04/20/2020 [facility] PHYSICAL THERAPY DISCONTINUANCE [...] 07/06/19 through 09/05/19 Goals updated on 02/17/2020. [place] in home exercise program. (Met) Patient will [...] scheduled additional follow-up appointments. Radha Yu PT Normal [facility] CNTHERAPYon 02-17-2020 CNTHERAPY OT/PT/Speech Visit (PTWS) ALBIN ISSA ([id number]) 1955 M Date Time Provider Department 02/17/20 9:30 AM RADHA YU (PT) PTWS Date Time Provider Department Center 02/17/2020 9:30 AM [id number] YU (PT) PTWS [facility] Reason for Visit: PT Progress Note [9456] PT Discharge [752] Reason For Visit History Recorded Primary Visit Diagnosis:S/P AKA (above knee amputation), right (HCC) [Z89.611] Allergies As of Date: 02/17/2020 (Not on File) Date Reviewed: Never Reviewed Progress Notes: Radha Yu PT 02/17/2020 12:13 PM Signed Episode Visit Count: 32 Therapist That Will Oversee The Plan Of Care: Marvinj carlos Radha Start of Care Date: 07/06/19 Onset [...] 07/06/19 through 09/05/19 Goals updated on 02/17/2020. [place] in home exercise program. (Met) Patient will [...] belt utilized during session for safety. Billing: [facility]: Therapeutic Exercise (40060): 1:1 time: 23 minutes (2 units: 23-37 mins) Gait Training (85849): 1:1 time: 15 minutes (1 unit: 8-22 mins) Total time: 38 minutes Radha Yu, PT Radha Yu PT 04/20/2020 9:16 AM Signed 04/20/2020 [facility] PHYSICAL THERAPY DISCONTINUANCE [...] 07/06/19 through 09/05/19 Goals updated on 02/17/2020. [place] in home exercise program. (Met) Patient will [...] to therapy or scheduled additional follow-up appointments. Radhachuck Yu PT Letter Text Normal [facility] PROGRESSon 02-17-2020 PROGRESS HNO ID: [id number] Author: Radha (Pt) Gigi Service: ? Author [...] 07/06/19 through 09/05/19 Goals updated on 02/17/2020. [place] in home exercise program. (Met) Patient will [...] belt utilized during session for safety. Billing: [facility]: Therapeutic Exercise (40482): 1:1 time: 23 minutes (2 units: 23-37 mins) Gait Training (73028): 1:1 time: 15 minutes (1 unit: 8-22 mins) Total time: 38 minutes Radha Yu PT Normal [facility] CNTHERAPYon 01-25-2020 CNTHERAPY OT/PT/Speech Visit (PTWS) ALBIN ISSA ([id number]) 1955 M Date Time Provider Department 01/25/20 3:30 PM RADHA YU (PT) PTWS Date Time Provider Department Center 01/25/2020 3:30 PM [id number] YU (PT) PTWS [facility] Reason for Visit: Physical Therapy [503] Primary Visit Diagnosis:S/P AKA (above knee amputation), right ([facility]) [Z89.611] Allergies As of Date: 01/25/2020 (Not [...] belt utilized during session for safety. Billing: [facility]: Therapeutic Exercise (05974): 1:1 time: 32 minutes (2 units: 23-37 mins) Gait Training (17824): 1:1 time: 18 minutes (1 unit: 8-22 mins) Total time: 50 minutes Radha Yu PT Normal [facility] PROGRESSon 01-25-2020 PROGRESS HNO ID: [id number] Author: Radha (Pt) Gigi Service: ? Author [...] belt utilized during session for safety. Billing: [facility]: Therapeutic Exercise (05100): 1:1 time: 32 minutes (2 units: 23-37 mins) Gait Training (17570): 1:1 time: 18 minutes (1 unit: 8-22 mins) Total time: 50 minutes Radha Yu PT Normal [facility] CNTHERAPYon 01-22-2020 CNTHERAPY OT/PT/Speech Visit (PTWS) ALBIN ISSA ([id number]) 1955 M Date Time Provider Department 01/22/20 1:45 PM RADHA YU (PT) PTWS Date Time Provider Department Center 01/22/2020 1:45 PM [id number] YU (PT) PTWS [facility] Reason for Visit: Physical Therapy [503] [...] SPORTS THERAPY PHYSICAL THERAPY TREATMENT NOTE ASSESSMENT: Ablin Issa demonstrated improvements in gait pattern and [...] for Visit: Pt stating he saw the aircraft instrument repairer again and was instructed to use 5 [...] assess proper use of assistive device. Billing: [facility]: Therapeutic Exercise (30101): 1:1 time: 28 minutes (2 units: 23-37 mins) Gait Training (24669): 1:1 time: 15 minutes (1 unit: 8-22 mins) Total time: 43 minutes Radha Yu PT Normal [facility] PROGRESSon 01-22-2020 PROGRESS HNO ID: [id number] Author: Radha (Pt) Gigi Service: ? Author [...] for Visit: Pt stating he saw the aircraft instrument repairer again and was instructed to use 5 [...] assess proper use of assistive device. Billing: [facility]: Therapeutic Exercise (38242): 1:1 time: 28 minutes (2 units: 23-37 mins) Gait Training (05721): 1:1 time: 15 minutes (1 unit: 8-22 mins) Total time: 43 minutes Radha Yu PT Normal [facility] CNTHERAPYon 01-18-2020 CNTHERAPY OT/PT/Speech Visit (PTWS) LUIS MANUELALBIN CARR ([id number]) 1955 M Date Time Provider Department 01/18/20 3:30 PM RADHA YU (PT) PTWS Date Time Provider Department Center 01/18/2020 3:30 PM [id number] YU (PT) PTWS [facility] Reason for Visit: Physical Therapy [503] Primary Visit Diagnosis:S/P AKA (above knee amputation), right ([facility]) [Z89.611] Allergies As of Date: 01/18/2020 (Not on File) Date Reviewed: Never Reviewed Progress Notes: Radha Yu PT 01/18/2020 4:45 PM Signed Episode Visit [...] belt utilized during session for safety. Billing: [facility]: Therapeutic Exercise (17448): 1:1 time: 25 minutes (2 units: 23-37 mins) Gait Training (13696): 1:1 time: 15 minutes (1 unit: 8-22 mins) Total time: 40 minutes Radha Yu PT Normal [facility] PROGRESSon 01-18-2020 PROGRESS HNO ID: [id number] Author: Radha (Pt) Gigi Service: ? Author Type: Physical Therapist Type: Progress Notes Filed: 01/18/2020 4:45 PM Note Text: Episode Visit Count: 29 Therapist That Will Oversee The Plan Of Care: Radha uY Start of Care Date: 07/06/19 Onset Date: [...] belt utilized during session for safety. Billing: [facility]: Therapeutic Exercise (12423): 1:1 time: 25 minutes (2 units: 23-37 mins) Gait Training (49964): 1:1 time: 15 minutes (1 unit: 8-22 mins) Total time: 40 minutes Radha Yu PT Normal [facility] CNTHERAPYon 01-15-2020 CNTHERAPY OT/PT/Speech Visit (PTWS) ALBIN ISSA ([id number]) 1955 M Date Time Provider Department 01/15/20 1:45 PM RADHA YU (PT) PTWS Date Time Provider Department Center 01/15/2020 1:45 PM [id number] YU (PT) PTWS [facility] Reason for Visit: Physical Therapy [503] [...] assess proper use of assistive device. Billing: [facility]: Therapeutic Exercise (66743): 1:1 time: 27 minutes (2 units: 23-37 mins) Gait Training (24260): 1:1 time: 15 minutes (1 unit: 8-22 mins) Total time: 42 minutes Radha Yu PT Normal [facility] PROGRESSon 01-15-2020 PROGRESS HNO ID: [id number] Author: Radha (Pt) Gigi Service: ? Author [...] assess proper use of assistive device. Billing: [facility]: Therapeutic Exercise (35250): 1:1 time: 27 minutes (2 units: 23-37 mins) Gait Training (60978): 1:1 time: 15 minutes (1 unit: 8-22 mins) Total time: 42 minutes Radha Yu PT Normal [facility] CNTHERAPYon 01-04-2020 CNTHERAPY OT/PT/Speech Visit (PTWS) ALBIN ISSA ([id number]) 1955 M Date Time Provider Department 01/04/20 3:30 PM RADHA YU (PT) PTWS Date Time Provider Department Center 01/04/2020 3:30 PM [id number] YU (PT) PTWS [facility] Reason for Visit: PT Progress Note [1596] Reason For Visit History Recorded Primary Visit [...] 07/06/19 through 09/05/19 Goals updated on 01/04/2020. [place] in home exercise program. (Met) Patient will [...] He states he has an appt with aircraft instrument repairer this and will discuss with him. Pain: [...] belt utilized during session for safety. Billing: [facility]: Therapeutic Exercise (07995): 1:1 time: 25 minutes (2 units: 23-37 mins) Gait Training (81947): 1:1 time: 15 minutes (1 unit: 8-22 mins) Total time: 40 minutes Radha Yu PT Normal [facility] PROGRESSon 01-04-2020 PROGRESS HNO ID: [id number] Author: Radha (Pt) Gigi Service: ? Author Type: Physical Therapist Type: Progress Notes Filed: 01/04/2020 7:11 PM Note Text: Episode Visit Count: 27 Therapist That Will Oversee The Plan Of Care: GigiRadha Start of Care Date: 07/06/19 Onset Date: [...] 07/06/19 through 09/05/19 Goals updated on 01/04/2020. [place] in home exercise program. (Met) Patient will [...] He states he has an appt with aircraft instrument repairer this and will discuss with him. Pain: [...] belt utilized during session for safety. Billing: [facility]: Therapeutic Exercise (35047): 1:1 time: 25 minutes (2 units: 23-37 mins) Gait Training (31984): 1:1 time: 15 minutes (1 unit: 8-22 mins) Total time: 40 minutes Radha Yu PT Normal [facility] CNTHERAPYon 12-30-2019 CNTHERAPY OT/PT/Speech Visit (PTWS) ALBIN ISSA ([id number]) 1955 M Date Time Provider Department 12/30/19 10:15 AM RADHA YU (PT) PTWS Date Time Provider Department Center 12/30/2019 10:15 AM [id number] YU (PT) PTWS [facility] Reason for Visit: Physical Therapy [503] Primary Visit Diagnosis:S/P AKA (above knee amputation), right (HCC) [Z89.611] Allergies As of Date: 12/30/2019 (Not [...] assess proper use of assistive device. Billing: [facility]: Therapeutic Exercise (68075): 1:1 time: 15 minutes (1 unit: 8-22 mins) Gait Training (95502): 1:1 time: 28 minutes (2 units: 23-37 mins) Total time: 43 minutes Radha Yu PT Normal [facility] PROGRESSon 12-30-2019 PROGRESS HNO ID: [id number] Author: Radha (Pt) Gigi Service: ? Author [...] assess proper use of assistive device. [facility]illing: [facility] [facility]: Therapeutic Exercise (71766): 1:1 time: 15 minutes (1 unit: 8-22 mins) Gait Training (61227): 1:1 time: 28 minutes (2 units: 23-37 mins) Total time: 43 minutes Radha Yu PT [facility] CNTHERAPYon 12-25-2019 CNTHERAPY OT/PT/Speech Visit (PTWS) ALBIN ISSA ([id number]) 1955 M Date Time Provider Department 12/25/19 2:00 PM ANN MESSINA (COMMUNICATIONS PROFESSIONAL) PTWS Date Time Provider Department Center 12/25/2019 2:00 PM [id number], NANCY (COMMUNICATIONS PROFESSIONAL) PTWS [facility] Reason for Visit: Physical Therapy [503] Primary Visit Diagnosis:S/P AKA (above knee amputation), right ([facility]) [Z89.611] Allergies As of Date: 12/25/2019 (Not [...] safety. Cueing for proper step length. Billing: [facility]: Therapeutic Exercise (74054): 1:1 time: 13 minutes (1 unit: 8-22 mins) Gait Training (45666): 1:1 time: 29 minutes (2 units: 23-37 mins) Total time: 42 minutes MOE Puga PT Previous Version [facility] PROGRESSon 12-25-2019 PROGRESS HNO ID: [id number] Author: Fidel (Ryan) Torsten Service: ? Author Type: Physical Therapist Type: [...] safety. Cueing for proper step length. Billing: [facility]: Therapeutic Exercise (01415): 1:1 time: 13 minutes (1 unit: 8-22 mins) Gait Training (51160): 1:1 time: 29 minutes (2 units: 23-37 mins) Total time: 42 minutes Ann Messina PT-Eder Sarmiento PT [facility] CNTHERAPYon 12-21-2019 CNTHERAPY OT/PT/Speech Visit (PTWS) ALBIN ISSA ([id number]) 1955 M Date Time Provider Department 12/21/19 2:45 PM ANN MESSINA (COMMUNICATIONS PROFESSIONAL) PTWS Date Time Provider Department Center 12/21/2019 2:45 PM [id number], NANCY (COMMUNICATIONS PROFESSIONAL) PTWS [facility] Reason for Visit: Physical Therapy [503] Primary Visit Diagnosis:S/P AKA (above knee amputation), right ([facility]) [Z89.611] Allergies As of Date: 12/21/2019 (Not on File) Date Reviewed: Never Reviewed Progress Notes: Radha Yu, PT 12/21/2019 4:56 PM Signed Episode Visit [...] belt utilized during session for safety. Billing: [facility]: Therapeutic Exercise (27774): 1:1 time: 15 minutes (1 unit: 8-22 mins) Gait Training (68536): 1:1 time: 30 minutes (2 units: 23-37 mins) Total time: 45 minutes MOE Puga PT Previous Version [facility] PROGRESSon 12-21-2019 PROGRESS HNO ID: [id number] Author: Radha (Pt) Gigi Service: ? Author [...] belt utilized during session for safety. Billing: [facility]: Therapeutic Exercise (24434): 1:1 time: 15 minutes (1 unit: 8-22 mins) Gait Training (85207): 1:1 time: 30 minutes (2 units: 23-37 mins) Total time: 45 minutes MOE Puga PT [facility] CNTHERAPYon 12-18-2019 CNTHERAPY OT/PT/Speech Visit (PTWS) ALBIN ISSA ([id number]) 1955 M Date Time Provider Department 12/18/19 1:15 PM ANN MESSINA (COMMUNICATIONS PROFESSIONAL) PTWS Date Time Provider Department Center 12/18/2019 1:15 PM [id number], NANCY (COMMUNICATIONS PROFESSIONAL) PTWS [facility] Reason for Visit: Physical Therapy [503] Primary Visit Diagnosis:S/P AKA (above knee amputation), right (HCC) [Z89.611] Allergies As of Date: 12/18/2019 (Not [...] cues for upright posture during gait. Billing: [facility]: Therapeutic Exercise (71102): 1:1 time: 15 minutes (1 unit: 8-22 mins) Gait Training (40274): 1:1 time: 25 minutes (2 units: 23-37 mins) Total time: 40 minutes Ann Messina PTRichard Phelps PT Previous Version [facility] PROGRESSon 12-18-2019 PROGRESS HNO ID: [id number] Author: Anshu Phelps Service: ? Author Type: Physical Therapist Type: Progress Notes Filed: 12/21/2019 8:32 AM Note Text: Episode Visit Count: 23 Therapist That Will Oversee The Plan Of Care: Marvinj carlos Radha Start of Care Date: 07/06/19 Onset [...] cues for upright posture during gait. Billing: [facility]: Therapeutic Exercise (00762): 1:1 time: 15 minutes (1 unit: 8-22 mins) Gait Training (89572): 1:1 time: 25 minutes (2 units: 23-37 mins) Total time: 40 minutes Ann Messina PT-Eder Phelps PT [facility] CNTHERAPYon 12-07-2019 CNTHERAPY OT/PT/Speech Visit (PTWS) ALBIN ISSA ([id number]) 1955 M Date Time Provider Department 12/07/19 10:30 AM RADHA YU (PT) PTWS Date Time Provider Department Center 12/07/2019 10:30 AM [id number] YU (PT) PTWS [facility] Reason for Visit: PT Progress Note [1596] Primary Visit Diagnosis:S/P AKA (above knee amputation), right ([facility]) [Z89.611] Allergies As of Date: 12/07/2019 (Not [...] 07/06/19 through 09/05/19 Goals updated on 10/16/2019. [place] in home exercise program. (Met) Patient will [...] ambulating with 2 LBQCs. He notes the aircraft instrument repairer took about 3/4 inches off of it [...] R LE above the knee prosthesis). Billing: [facility]: Therapeutic Exercise (77334): 1:1 time: 30 minutes (2 units: 23-37 mins) Gait Training (91853): 1:1 time: 10 minutes (1 unit: 8-22 mins) Total time: 40 minutes Radha Yu PT Previous Version Letter Text [facility] PROGRESSon 12-07-2019 PROGRESS HNO ID: [id number] Author: Radha (Pt) Gigi Service: ? Author [...] 07/06/19 through 09/05/19 Goals updated on 10/16/2019. [place] in home exercise program. (Met) Patient will [...] ambulating with 2 LBQCs. He notes the aircraft instrument repairer took about 3/4 inches off of it [...] R LE above the knee prosthesis). Billing: [facility]: Therapeutic Exercise (12601): 1:1 time: 30 minutes (2 units: 23-37 mins) Gait Training (59869): 1:1 time: 10 minutes (1 unit: 8-22 mins) Total time: 40 minutes Radha Yu PT [facility] CNTHERAPYon 10-16-2019 CNTHERAPY OT/PT/Speech Visit (PTWS) ALBIN ISSA ([id number]) 1955 M Date Time Provider Department 10/16/19 2:30 PM RADHA YU (PT) PTWS Date Time Provider Department Center 10/16/2019 2:30 PM [id number] YU (PT) PTWS [facility] Reason for Visit: PT Progress Note [1596] Primary Visit Diagnosis:S/P AKA (above knee amputation), right (H[facility]) [Z89.611] Allergies As of Date: 10/16/2019 (Not on File) Date Reviewed: Never Reviewed Progress Notes: Radha Yu PT 10/16/2019 3:46 PM Signed Episode Visit [...] 07/06/19 through 09/05/19 Goals updated on 09/11/2019. [place] in home exercise program. (Met) Patient will [...] as noted. Objective measurements and reassessment. Billing: [facility]: Therapeutic Exercise (27445): 1:1 time: 40 minutes (3 units: 38-52 mins) Total time: 40 minutes Radha Yu PT [facility] PROGRESSon 10-16-2019 PROGRESS HNO ID: [id number] Author: Radha (Pt) Gigi Service: ? Author [...] 07/06/19 through 09/05/19 Goals updated on 09/11/2019. [place] in home exercise program. (Met) Patient will [...] as noted. Objective measurements and reassessment. Billing: [facility]: Therapeutic Exercise (12760): 1:1 time: 40 minutes (3 units: 38-52 mins) Total time: 40 minutes Radha Yu PT [facility] CNTHERAPYon 10-02-2019 CNTHERAPY OT/PT/Speech Visit (PTWS) ALBIN ISSA ([id number]) 1955 M Date Time Provider Department 10/02/19 8:00 AM MARVINRADHA ADKINS (PT) PTWS Date Time Provider Department Center 10/02/2019 8:00 AM [id number] YU (PT) PTWS [facility] Reason for Visit: Physical Therapy [503] Primary Visit Diagnosis:S/P AKA (above knee amputation), right (HCC) [Z89.611] Allergies As of Date: 10/02/2019 (Not [...] assess proper use of assistive device. Billing: [facility]: Therapeutic Exercise (55159): 1:1 time: 32 minutes (2 units: 23-37 mins) Gait Training (42658): 1:1 time: 8 minutes (1 unit: 8-22 mins) Total time: 40 minutes Radha Yu PT [facility] PROGRESSon 10-02-2019 PROGRESS HNO ID: [id number] Author: Radha (Pt) Gigi Service: ? Author [...] assess proper use of assistive device. Billing: [facility]: Therapeutic Exercise (20213): 1:1 time: 32 minutes (2 units: 23-37 mins) Gait Training (64277): 1:1 time: 8 minutes (1 unit: 8-22 mins) Total time: 40 minutes Radha Yu PT [facility] CNTHERAPYon 09-23-2019 CNTHERAPY OT/PT/Speech Visit (PTWS) ALBIN ISSA ([id number]) 1955 M Date Time Provider Department 09/23/19 2:15 PM ANN MESSINA (COMMUNICATIONS PROFESSIONAL) PTWS Date Time Provider Department Center 09/23/2019 2:15 PM [id number], NANCY (COMMUNICATIONS PROFESSIONAL) PTWS [facility] Reason for Visit: Physical Therapy [503] [...] 1: Standing hip abductions left 3# 1x23 [id number] and right 3# 2x40 2: Standing hip [...] verbal and visual cuing. Billing:KX modifier applied [facility]: Therapeutic Exercise (57360): 1:1 time: 40 minutes (3 units: 38-52 mins) Total time: 40 minutes MOE Puga PT Previous Version [facility] PROGRESSon 09-23-2019 PROGRESS HNO ID: [id number] Author: Radha (Ryan) Gigi Service: ? Author Type: Physical Therapist [...] 1: Standing hip abductions left 3# 1x23 [id number] and right 3# 2x40 2: Standing hip [...] verbal and visual cuing. Billing:KX modifier applied [facility]: Therapeutic Exercise (13390): 1:1 time: 40 minutes (3 units: 38-52 mins) Total time: 40 minutes Ann Messina PTRYAN Ledesma [facility] CNTHERAPYon 09-11-2019 CNTHERAPY OT/PT/Speech Visit (PTWS) ALBIN ISSA ([id number]) 1955 M Date Time Provider Department 09/11/19 8:00 AM RADHA YU (PT) PTWS Date Time Provider Department Center 09/11/2019 8:00 AM [id number] YU (PT) PTWS [facility] Reason for Visit: PT Progress Note [...] 07/06/19 through 09/05/19 Goals updated on 09/11/2019. [place] in home exercise program. (Met) Patient will [...] assess proper use of assistive device. Billing: [facility]: Therapeutic Exercise (18871): 1:1 time: 27 minutes (2 units: 23-37 mins) Gait Training (85366): 1:1 time: 15 minutes (1 unit: 8-22 mins) Total time: 42 minutes Radha Yu PT Letter Text [facility] PROGRESSon 09-11-2019 PROGRESS HNO ID: [id number] Author: Radha Yu Service: ? Author Type: [...] 07/06/19 through 09/05/19 Goals updated on 09/11/2019. [place] in home exercise program. (Met) Patient will [...] assess proper use of assistive device. Billing: [facility]: Therapeutic Exercise (43084): 1:1 time: 27 minutes (2 units: 23-37 mins) Gait Training (78594): 1:1 time: 15 minutes (1 unit: 8-22 mins) Total time: 42 minutes Radha Yu PT [facility] CNTHERAPYon 09-04-2019 CNTHERAPY OT/PT/Speech Visit (PTWS) ALBIN ISSA ([id number]) 1955 M Date Time Provider Department 09/04/19 2:00 PM ANN MESSINA (COMMUNICATIONS PROFESSIONAL) PTWS Date Time Provider Department Center 09/04/2019 2:00 PM [id number], NANCY (COMMUNICATIONS PROFESSIONAL) PTWS [facility] Reason for Visit: Physical Therapy [503] [...] belt utilized during session for safety. Billing: [facility]: Therapeutic Exercise (21448): 1:1 time: 23 minutes (2 units: 23-37 mins) Gait Training (14297): 1:1 time: 20 minutes (1 unit: 8-22 mins) Total time: 43 minutes MOE Puga PT Previous Version [facility] PROGRESSon 09-04-2019 PROGRESS HNO ID: [id number] Author: Fidel Xiong) Torsten Service: ? Author Type: Physical Therapist Type: [...] belt utilized during session for safety. Billing: [facility]: Therapeutic Exercise (43424): 1:1 time: 23 minutes (2 units: 23-37 mins) Gait Training (88928): 1:1 time: 20 minutes (1 unit: 8-22 mins) Total time: 43 minutes Ann Messina PT-Eder Sarmiento PT [facility] CNTHERAPYon 08-31-2019 CNTHERAPY OT/PT/Speech Visit (PTWS) ALBIN ISSA ([id number]) 1955 M Date Time Provider Department 08/31/19 1:15 PM ANN MESSINA (COMMUNICATIONS PROFESSIONAL) PTWS Date Time Provider Department Center 08/31/2019 1:15 PM [id number], NANCY (COMMUNICATIONS PROFESSIONAL) PTWS [facility] Reason for Visit: Physical Therapy [503] Primary Visit Diagnosis:S/P AKA (above knee amputation), right (HCC) [Z89.611] Allergies As of Date: 08/31/2019 (Not on File) Date Reviewed: Never Reviewed Progress Notes: Radha Yu PT 08/31/2019 8:10 PM Signed Episode Visit [...] above. Gait belt used for safety. Billing: [facility]: Therapeutic Exercise (45533): 1:1 time: 28 minutes (2 units: 23-37 mins) Gait Training (32351): 1:1 time: 17 minutes (1 unit: 8-22 mins) Total time: 45 minutes MOE Puga PT Previous Version [facility] PROGRESSon 08-31-2019 PROGRESS HNO ID: [id number] Author: Radha (Pt) Gigi Service: ? Author [...] above. Gait belt used for safety. Billing: [facility]: Therapeutic Exercise (57922): 1:1 time: 28 minutes (2 units: 23-37 mins) Gait Training (26689): 1:1 time: 17 minutes (1 unit: 8-22 mins) Total time: 45 minutes Ann Messina PT-RYAN Herrera [facility] CNTHERAPYon 08-28-2019 CNTHERAPY OT/PT/Speech Visit (PTWS) ALBIN ISSA ([id number]) 1955 M Date Time Provider Department 08/28/19 1:45 PM RADHA YU (PT) PTWS Date Time Provider Department Center 08/28/2019 1:45 PM [id number] YU (PT) PTWS [facility] Reason for Visit: Physical Therapy [503] [...] for Visit: Pt states he saw the aircraft instrument repairer yesterday and they are discussing starting the [...] assess proper use of orthotic device; Billing: [facility]: Therapeutic Exercise (04763): 1:1 time: 20 minutes (1 unit: 8-22 mins) Gait Training (88696): 1:1 time: 17 minutes (1 unit: 8-22 mins) Total time: 37 minutes (Pt was late d/t garage door breaking.) Radha Yu, PT [facility] PROGRESSon 08-28-2019 PROGRESS HNO ID: [id number] Author: Radha (Pt) Marvinj carlos Service: ? Author Type: Physical Therapist Type: [...] for Visit: Pt states he saw the aircraft instrument repairer yesterday and they are discussing starting the [...] assess proper use of orthotic device; Billing: [facility]: Therapeutic Exercise (85504): 1:1 time: 20 minutes (1 unit: 8-22 mins) Gait Training (70645): 1:1 time: 17 minutes (1 unit: 8-22 mins) Total time: 37 minutes (Pt was late d/t garage door breaking.) Radha Yu PT [facility] CNTHERAPYon 08-26-2019 CNTHERAPY OT/PT/Speech Visit (PTWS) ALBIN ISSA ([id number]) 1955 M Date Time Provider Department 08/26/19 2:15 PM ANN MESSINA (COMMUNICATIONS PROFESSIONAL) PTWS Date Time Provider Department Center 08/26/2019 2:15 PM [id number], NANCY (COMMUNICATIONS PROFESSIONAL) PTWS [facility] Reason for Visit: Physical Therapy [503] Primary Visit Diagnosis:S/P AKA (above knee amputation), right (HCC) [Z89.611] Allergies As of Date: 08/26/2019 (Not [...] belt utilized during session for safety. Billing: [facility]: Therapeutic Exercise (81360): 1:1 time: 15 minutes (1 unit: 8-22 mins) Gait Training (62990): 1:1 time: 25 minutes (2 units: 23-37 mins) Total time: 40 minutes Ann Messina, PT-Eder Yu, RYAN Previous Version [facility] PROGRESSon 08-26-2019 PROGRESS HNO ID: [id number] Author: Radha (Pt) Marvinj carlos Service: ? Author Type: Physical Therapist Type: [...] belt utilized during session for safety. Billing: [facility]: Therapeutic Exercise (21354): 1:1 time: 15 minutes (1 unit: 8-22 mins) Gait Training (40686): 1:1 time: 25 minutes (2 units: 23-37 mins) Total time: 40 minutes MOE Puga PT [facility] CNTHERAPYon 08-24-2019 CNTHERAPY OT/PT/Speech Visit (PTWS) ALBIN ISSA ([id number]) 1955 M Date Time Provider Department 08/24/19 2:00 PM ANN MESSINA (COMMUNICATIONS PROFESSIONAL) PTWS Date Time Provider Department Center 08/24/2019 2:00 PM [id number], NANCY (COMMUNICATIONS PROFESSIONAL) PTWS [facility] Reason for Visit: Physical Therapy [503] Primary Visit Diagnosis:S/P AKA (above knee amputation), right (HCC) [Z89.611] Allergies As of Date: 08/24/2019 (Not on File) Date Reviewed: Never Reviewed Progress Notes: Radha Yu PT 08/24/2019 3:26 PM Signed Episode Visit [...] belt utilized during session for safety. Billing: [facility]: Therapeutic Exercise (22576): 1:1 time: 15 minutes (1 unit: 8-22 mins) Gait Training (79426): 1:1 time: 30 minutes (2 units: 23-37 mins) Total time: 45 minutes Ann Messina PTRichard Yu PT Previous Version [facility] PROGRESSon 08-24-2019 PROGRESS HNO ID: [id number] Author: Radha (Pt) Gigi Service: ? Author [...] belt utilized during session for safety. Billing: [facility]: Therapeutic Exercise (15430): 1:1 time: 15 minutes (1 unit: 8-22 mins) Gait Training (85814): 1:1 time: 30 minutes (2 units: 23-37 mins) Total time: 45 minutes Ann Messina PTRYAN Ledesma [facility] CNTHERAPYon 08-19-2019 CNTHERAPY OT/PT/Speech Visit (PTWS) ALBIN ISSA ([id number]) 1955 M Date Time Provider Department 08/19/19 11:00 AM RADHA YU (PT) PTWS Date Time Provider Department Center 08/19/2019 11:00 AM [id number] YU (PT) PTWS [facility] Reason for Visit: Physical Therapy [503] Primary Visit Diagnosis:S/P AKA (above knee amputation), right ([facility]) [Z89.611] Other Visit Diagnosis:Liposarcoma of thigh, 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 [...] assess proper use of assistive device. Billing: [facility]: Therapeutic Exercise (62103): 1:1 time: 25 minutes (2 units: 23-37 mins) Gait Training (44974): 1:1 time: 20 minutes (1 unit: 8-22 mins) Total time: 45 minutes [facility] PRO[facility] 08-19-2019 PROGRESS HNO ID: [id number] Author: Radha (Pt) Gigi Service: ? Author [...] NOTE ASSESSMENT: Albin Issa demonstrated improvements in gait, endurance and balance. [...] assess proper use of assistive device. Billing: [facility]: Therapeutic Exercise (28259): 1:1 time: 25 minutes (2 units: 23-37 mins) Gait Training (15781): 1:1 time: 20 minutes (1 unit: 8-22 mins) Total time: 45 minutes Radha Yu PT [facility] CNTHERAPYon 08-12-2019 CNTHERAPY OT/PT/Speech Visit (PTWS) ALBIN ISSA ([id number]) 1955 M Date Time Provider Department 08/12/19 1:30 PM RADHA YU (PT) PTWS Date Time Provider Department Center 08/12/2019 1:30 PM [id number] YU (PT) PTWS [facility] Reason for Visit: Physical Therapy [503] Primary Visit Diagnosis:S/P AKA (above knee amputation), right ([facility]) [Z89.611] Other Visit Diagnosis:Liposarcoma of thigh, 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 Author Type: Physical Therapist Type: Progress Notes Filed: 08/12/2019 2:37 PM Note Text: Episode Visit Count: 11 Therapist That Will Oversee The Plan Of Care: MarvinRadha adkins Start of Care Date: 07/06/19 Onset Date: [...] (Not during activities in parallel bars.) Billing: [facility]: Therapeutic Exercise (59792): 1:1 time: 25 minutes (2 units: 23-37 mins) Gait Training (09695): 1:1 time: 20 minutes (1 unit: 8-22 mins) Total time: 45 minutes Radha Yu PT [facility] CNTHERAPYon 08-10-2019 CNTHERAPY OT/PT/Speech Visit (PTWS) LUIS MANUELALBIN Carlita ([id number]) 1955 M Date Time Provider Department 08/10/19 12:45 PM RADHA YU (PT) PTWS Date Time Provider Department Center 08/10/2019 12:45 PM [id number] YU (PT) PTWS [facility] Reason for Visit: Physical Therapy [503] Primary Visit Diagnosis:S/P AKA (above knee amputation), right ([facility]) [Z89.611] Other Visit Diagnosis:Liposarcoma of thigh, 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 The patient will continue to benefit from ongoing skilled physical therapy for strengthening, balance and gait progression. PLAN FOR NEXT VISIT: Continue with strengthenign, balance and gait progression. May practice stairs again next visit. SUBJECTIVE: Patient Reason for Visit: Pt states his daughter is taking him to the psychiatric hospital today, but he is planning on using [...] belt utilized during session for safety. Billing: [facility]: Therapeutic Exercise (80937): 1:1 time: 25 minutes (2 units: 23-37 mins) Gait Training (89312): 1:1 time: 20 minutes (1 unit: 8-22 mins) Total time: 45 minutes Radha LemonRYAN [facility] PROGRESSon 08-10-2019 PROGRESS HNO ID: [id number] Author: Radha (Pt) Gigi Service: ? Author Type: Physical Therapist Type: Progress Notes Filed: 08/10/2019 2:06 PM Note Text: Episode Visit Count: 10 Therapist That Will Oversee The Plan Of Care: MarvinMeagan adkinsissa Start of Care Date: 07/06/19 Onset Date: [...] his daughter is taking him to the psychiatric hospital today, but he is planning on using [...] belt utilized during session for safety. Billing: [facility]: Therapeutic Exercise (60948): 1:1 time: 25 minutes (2 units: 23-37 mins) Gait Training (48415): 1:1 time: 20 minutes (1 unit: 8-22 mins) Total time: 45 minutes RYAN Aldana [facility] CNTHERAPYon 08-07-2019 CNTHERAPY OT/PT/Speech Visit (PTWS) ALBIN ISSA ([id number]) 1955 M Date Time Provider Department 08/07/19 11:00 AM RADHA YU (PT) PTWS Date Time Provider Department Center 08/07/2019 11:00 AM [id number] YU (PT) PTWS [facility] Reason for Visit: Physical Therapy [503] Primary Visit Diagnosis:S/P AKA (above knee amputation), right (HCC) [Z89.611] Allergies As of Date: 08/07/2019 (Not on File) Date Reviewed: Never Reviewed Progress Notes: Radha Yu, PT 08/07/2019 12:43 PM Signed Episode Visit [...] using LB quad cane and railing. Billing: [facility]: Therapeutic Exercise (67673): 1:1 time: 25 minutes (2 units: 23-37 mins) Gait Training (82272): 1:1 time: 20 minutes (1 unit: 8-22 mins) Total time: 45 minutes Radha Yu PT [facility] PROGRESSon 08-07-2019 PROGRESS HNO ID: [id number] Author: Radha (Pt) Gigi Service: ? Author [...] using LB quad cane and railing. Billing: [facility]: Therapeutic Exercise (90137): 1:1 time: 25 minutes (2 units: 23-37 mins) Gait Training (93545): 1:1 time: 20 minutes (1 unit: 8-22 mins) Total time: 45 minutes Radha Yu PT [facility] CNTHERAPYon 08-05-2019 CNTHERAPY OT/PT/Speech Visit (PTWS) ALBIN ISSA ([id number]) 1955 M Date Time Provider Department 08/05/19 9:30 AM RADHA YU (PT) PTWS Date Time Provider Department Center 08/05/2019 9:30 AM [id number] (PT) PTWS [facility] Reason for Visit: Physical Therapy [503] Primary Visit Diagnosis:S/P AKA (above knee amputation), right ([facility]) [Z89.611] Other Visit Diagnosis:Liposarcoma of thigh, 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 [place] in home exercise program. (Met) Patient will [...] surface and 180 deg turns negotiation. Billing: [facility]: Therapeutic Exercise (91231): 1:1 time: 18 minutes (1 unit: 8-22 mins) Gait Training (38604): 1:1 time: 25 minutes (2 units: 23-37 mins) Total time: 43 minutes Radha Yu PT [facility] PROGRESSon 08-05-2019 PROGRESS HNO ID: [id number] Author: Radha (Pt) Gigi Service: ? Author [...] 07/06/19 through 09/05/19 Goals updated on 08/05/2019. [place] in home exercise program. (Met) Patient will [...] surface and 180 deg turns negotiation. Billing: [facility]: Therapeutic Exercise (36068): 1:1 time: 18 minutes (1 unit: 8-22 mins) Gait Training (22902): 1:1 time: 25 minutes (2 units: 23-37 mins) Total time: 43 minutes Radha Yu, PT [facility] CNTHERAPYon 07-27-2019 CNTHERAPY OT/PT/Speech Visit (PTWS) ALBIN ISSA ([id number]) 1955 M Date Time Provider Department 07/27/19 8:30 AM RADHA YU (PT) PTWS Date Time Provider Department Center 07/27/2019 8:30 AM [id number] YU (PT) PTWS [facility] Reason for Visit: Physical Therapy [503] Primary Visit Diagnosis:S/P AKA (above knee amputation), right ([facility]) [Z89.611] Other Visit Diagnosis:Liposarcoma of thigh, 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 Billing: [facility]: Therapeutic Exercise (85471): 1:1 time: 25 minutes (2 units: 23-37 mins) Gait Training (04196): 1:1 time: 20 minutes (1 unit: 8-22 mins) Total time: 45 minutes Radha Yu PT [facility] PROGRESSon 07-27-2019 PROGRESS HNO ID: [id number] Author: Radha (Pt) Gigi Service: ? Author [...] level surfaces with 2 canes negotiation. Billing: [facility]: Therapeutic Exercise (83425): 1:1 time: 25 minutes (2 units: 23-37 mins) Gait Training (46811): 1:1 time: 20 minutes (1 unit: 8-22 mins) Total time: 45 minutes Radha Yu PT [facility] CNTHERAPYon 07-22-2019 CNTHERAPY OT/PT/Speech Visit (PTWS) ALBIN ISSA ([id number]) 1955 M Date Time Provider Department 07/22/19 1:30 PM RADHA YU (PT) PTWS Date Time Provider Department Center 07/22/2019 1:30 PM [id number] YU (PT) PTWS [facility] Reason for Visit: Physical Therapy [503] Primary Visit Diagnosis:S/P AKA (above knee amputation), right ([facility]) [Z89.611] Other Visit Diagnosis:Liposarcoma of thigh, 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 He has another f/u with the aircraft instrument repairer tomorrow. Pain: Pain Pain Level: 0 Post [...] identified in the objective section above. Billing: [facility]: Therapeutic Exercise (99201): 1:1 time: 25 minutes (2 units: 23-37 mins) Gait Training (20734): 1:1 time: 20 minutes (1 unit: 8-22 mins) Total time: 45 minutes Radha Yu PT [facility] PROGRESSon 07-22-2019 PROGRESS HNO ID: [id number] Author: Radha (Pt) Gigi Service: ? Author [...] session. He has another f/u with the aircraft instrument repairer tomorrow. Pain: Pain Pain Level: 0 Post [...] identified in the objective section above. Billing: [facility]: Therapeutic Exercise (48362): 1:1 time: 25 minutes (2 units: 23-37 mins) Gait Training (34321): 1:1 time: 20 minutes (1 unit: 8-22 mins) Total time: 45 minutes Radha Yu PT [facility] CNTHERAPYon 07-20-2019 CNTHERAPY OT/PT/Speech Visit (PTWS) ALBIN ISSA ([id number]) 1955 M Date Time Provider Department 07/20/19 8:30 AM RADHA YU (PT) PTWS Date Time Provider Department Center 07/20/2019 8:30 AM [id number] YU (PT) [facility] Reason for Visit: Physical Therapy [503] Primary Visit Diagnosis:S/P AKA (above knee amputation), right ([facility]) [Z89.611] Other Visit Diagnosis:Liposarcoma of thigh, 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 Billing: [facility]: Therapeutic Exercise (30458): 1:1 time: 25 minutes (2 units: 23-37 mins) Gait Training (52667): 1:1 time: 20 minutes (1 unit: 8-22 mins) Total time: 45 minutes Radha Yu PT [facility] PROGRESSon 07-20-2019 PROGRESS HNO ID: [id number] Author: Radha (Pt) Gigi Service: ? Author Type: Physical Therapist Type: Progress Notes Filed: 07/20/2019 9:35 AM Note Text: Episode Visit Count: 4 Therapist That Will Oversee The Plan Of Care: GigiMeaganRadha Start of Care Date: 07/06/19 Onset Date: 01/26/19 Plan of Care Certification Date: 07/06/19 Patient Identified by Name and Date of : Yes REHABILITATION AND SPORTS THERAPY PHYSICAL THERAPY TREATMENT NOTE ASSESSMENT: Albin [place] demonstrated improvements in L LE stance time [...] identified in the objective section above. Billing: [facility]: Therapeutic Exercise (89115): 1:1 time: 25 minutes (2 units: 23-37 mins) Gait Training (96066): 1:1 time: 20 minutes (1 unit: 8-22 mins) Total time: 45 minutes Radha Yu PT [facility] CNTHERAPYon 07-17-2019 CNTHERAPY OT/PT/Speech Visit (PTWS) ALBIN ISSA ([id number]) 1955 M Date Time Provider Department 07/17/19 3:15 PM RADHA YU (PT) PTWS Date Time Provider Department Center 07/17/2019 3:15 PM [id number] YU (PT) PTWS [facility] Reason for Visit: Physical Therapy [503] Primary Visit Diagnosis:S/P AKA (above knee amputation), right ([facility]) [Z89.611] Other Visit Diagnosis:Liposarcoma of thigh, 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 Billing: [facility]: Therapeutic Exercise (47257): 1:1 time: 20 minutes (1 unit: 8-22 mins) Gait Training (22179): 1:1 time: 25 minutes (2 units: 23-37 mins) Total time: 45 minutes Radha Yu PT [facility] PROGRESSon 07-17-2019 PROGRESS HNO ID: [id number] Author: Radha (Pt) Gigi Service: ? Author [...] program was facilitated with verbal cueing. Billing: [facility]: Therapeutic Exercise (95686): 1:1 time: 20 minutes (1 unit: 8-22 mins) Gait Training (87286): 1:1 time: 25 minutes (2 units: 23-37 mins) Total time: 45 minutes Radha Yu PT [facility] CNTHERAPYon 07-13-2019 CNTHERAPY OT/PT/Speech Visit (PTWS) ALBIN ISSA ([id number]) 1955 M Date Time Provider Department 07/13/19 9:30 AM RADHA UY (PT) PTWS Date Time Provider Department Center 07/13/2019 9:30 AM [id number] YU (PT) PTWS [facility] Reason for Visit: Physical Therapy [503] Primary Visit Diagnosis:S/P AKA (above knee amputation), right ([facility]) [Z89.611] Other Visit Diagnosis:Liposarcoma of thigh, 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 The patient will continue to benefit from ongoing skilled physical therapy for strengthening, ROM, balance and gait. PLAN FOR NEXT VISIT: Continue strengthening, gait and stairs. Pt to bring his cane from home next visit for gait instruction. SUBJECTIVE: Patient Reason for Visit: Pt states he saw the aircraft instrument repairer and he adjusted his prosthesis and is now fitting very comfortably when weight bearing. He presents today ambulating with his wheeled walker to dept (no w/c). Pain: Pain Pain Level: 0 [...] the proper sequence for stair negotiation. Billing: [facility]: Therapeutic Exercise (31706): 1:1 time: 20 minutes (1 unit: 8-22 mins) Gait Training (41252): 1:1 time: 25 minutes (2 units: 23-37 mins) Total time: 45 minutes Radha Yu PT [facility] PROGRESSon 07-13-2019 PROGRESS HNO ID: [id number] Author: Radha (Pt) Gigi Service: ? Author [...] Albin Issa demonstrated improvements in gait pattern with walker and prosthesis. The patient will continue to benefit from ongoing skilled physical therapy for strengthening, ROM, balance and gait. PLAN FOR NEXT VISIT: Continue strengthening, gait and stairs. Pt to bring his cane from home next visit for gait instruction. SUBJECTIVE: Patient Reason for Visit: Pt states he saw the aircraft instrument repairer and he adjusted his prosthesis and is now fitting very comfortably when weight bearing. He presents today ambulating with his wheeled walker to dept (no w/c). Pain: Pain Pain Level: 0 [...] the proper sequence for stair negotiation. Billing: [facility]: Therapeutic Exercise (64551): 1:1 time: 20 minutes (1 unit: 8-22 mins) Gait Training (22472): 1:1 time: 25 minutes (2 units: 23-37 mins) Total time: 45 minutes Radha Yu PT [facility] CNTHERAPYon 07-08-2019 CNTHERAPY OT/PT/Speech Visit (PTWS) ALBIN ISSA ([id number]) 1955 M Date Time Provider Department 07/08/19 3:15 PM RADHA YU (PT) PTWS Date Time Provider Department Center 07/08/2019 3:15 PM [id number] YU (PT) PTWS [facility] Reason for Visit: Physical Therapy [503] Primary Visit Diagnosis:S/P AKA (above knee amputation), right ([facility]) [Z89.611] Other Visit Diagnosis:Liposarcoma of thigh, 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 Billing: [facility]: Therapeutic Exercise (72344): 1:1 time: 15 minutes (1 unit: 8-22 mins) Gait Training (32459): 1:1 time: 25 minutes (2 units: 23-37 mins) Total time: 40 minutes Radha Yu PT [facility] PROGRESSon 07-08-2019 PROGRESS HNO ID: [id number] Author: Radha RichmondPt) Gigi Service: ? Author [...] assess proper use of orthotic device. Billing: [facility]: Therapeutic Exercise (45730): 1:1 time: 15 minutes (1 unit: 8-22 mins) Gait Training (15618): 1:1 time: 25 minutes (2 units: 23-37 mins) Total time: 40 minutes Radha Yu PT [facility] CNTHERAPYon 07-06-2019 CNTHERAPY OT/PT/Speech Visit (PTWS) ALBIN ISSA ([id number]) 1955 M Date Time Provider Department 07/06/19 5:00 PM RADHA YU (PT) PTWS Date Time Provider Department Center 07/06/2019 5:00 PM [id number] YU (PT) PTWS [facility] Reason for Visit: PT Eval [747] Primary Visit Diagnosis:S/P AKA (above knee amputation), right ([facility]) [Z89.611] Other Visit Diagnosis:Liposarcoma of thigh, 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 Patient will increase [...] AKA 01/26/19. He has been wearng the review consultant garment and ambulating independently with front [...] in weight bearing. He has f/u with [employer] 07/16/19. When not wearing his prosthetic, he is wearing the review consultant on his stump. He describes a [...] *Pt was advised to continue to wear review consultant when not using prosthesis. He is to wear the prosthesis no more than 4 hours a day and less than that if wearing consecutive days. he is to discontinue use of prosthesis if develops any pressure points, skin redness or painful irritation on R LE. Pt was also enocuraged to keep his aircraft instrument repairer notified of any skin irritations, rubbing or [...] orthotic device; R LE AKA prosthesis. Billing: [facility]: Evaluation - Low Complexity (44357) Gait Training (85678): 1:1 time: 20 minutes (1 unit: 8-22 mins) Total time: 45 minutes Radha Yu PT Previous Version Radha Yu PT 07/06/2019 7:12 PM Signed Addended by: RADHA YU PT on: 07/06/2019 07:12 PM Modules accepted: Orders Letter Text [facility] Pooja 07-06-2019 PROGRESS HNO ID: [id number] Author: Radha Yu Service: ? Author Type: [...] of Care: created on 07/06/19 through 09/05/19 [place] in home exercise program. Patient will increase [...] AKA 01/26/19. He has been wearng the review consultant garment and ambulating independently with front [...] in weight bearing. He has f/u with [employer] 07/16/19. When not wearing his prosthetic, he is wearing the review consultant on his stump. He describes a [...] *Pt was advised to continue to wear review consultant when not using prosthesis. He is to wear the prosthesis no more than 4 hours a day and less than that if wearing consecutive days. he is to discontinue use of prosthesis if develops any pressure points, skin redness or painful irritation on R LE. Pt was also enocuraged to keep his aircraft instrument repairer notified of any skin irritations, rubbing or [...] orthotic device; R LE AKA prosthesis. Billing: [facility]: Evaluation - Low Complexity (27747) Gait Training (31012): 1:1 time: 20 minutes (1 unit: 8-22 mins) Total time: 45 minutes Radha Yu PT [facility] Office Visit: evaluation les ions right leg - surgery 05/28/17on 07-03-2017 Alcoholism counseling (procedure) no Invalid Interpretation Code [facility] Work Phone: Dietary management education, guidance, and counseling (procedure) yes Invalid Interpretation Code [facility] Work Phone: Documentation of current medications (procedure) Done Invalid Interpretation Code [facility] Work Phone: Fall risk assessment No Invalid Interpretation Code [facility] Work Phone: [phone] Tobacco smoking status Current Invalid Interpretation Code [facility] Work Phone: [phone] Tobacco use status [facility] Former smoker Invalid Interpretation Code [facility] Work Phone: Office Visit: gallstones and abdominal painon 06-19-2017 Tobacco smoking status Current Invalid Interpretation Code [facility] Work Phone: Tobacco use status [facility] Former smoker Invalid Interpretation Code [facility] Work Phone: Office Visit: evaluation les ions right legon 05-15-2017 Tobacco smoking status Current Invalid Interpretation Code [facility] Work Phone: Tobacco use status [facility] Former smoker Invalid Interpretation Code [facility] Work Phone: Office Visiton 12-14-2016 Tobacco smoking status Current Invalid Interpretation Code [facility] Work Phone: Tobacco use status [facility] Former smoker Invalid Interpretation Code [facility] Work Phone: Clinical Lists Update: Prelo swing tender 10-29-2016 Cholesterol [Mass/Vol] 123 mg/dL Invalid Interpretation Code [facility] Work Phone: Cholesterol in HDL [Mass/Vol] 40 mg/dL Invalid Interpretation Code [facility] Work Phone: Cholesterol in LDL [Mass/Vol] 57 mg/dL Invalid Interpretation Code [facility] Work Phone: Triglyceride [Mass/Vol] 132 mg/dL Invalid Interpretation Code [facility] Work Phone: Clinical Lists Update: Prelo swing tender 05-28-2016 Left ventricular Ejection fraction 35 % Invalid Interpretation Code [facility] Work Phone: Lab Report: CBC W/Diff, Auto matedon 01-17-2016 Absolute Neut 3.0 X10 3/UL Invalid Interpretation Code 2.0-7.7 [facility] Work Phone: [phone] Basophils/100 WBC (Bld) 0.6 % Invalid Interpretation Code 0-1 [facility] Work Phone: Basophils/100 WBC Auto (Bld) 0.6 % Invalid Interpretation Code 0-1 [facility] Work Phone: Eosinophils/100 leukocytes 0.8 % Invalid Interpretation Code 0-5 [facility] Work Phone: Eosinophils/100 WBC (Bld) 0.8 % Invalid Interpretation Code 0-5 [facility] Work Phone: Erythrocyte distribution width (RBC) [Ratio] 13.4 % Invalid Interpretation Code 11.6-14.6 [facility] Work Phone: Erythrocyte distribution width Auto Ratio (RBC) 13.4 % Invalid Interpretation Code 11.6-14.6 [facility] Work Phone: [phone] Erythrocytes (RBC) 4.01 10*6/uL Low 4.6-6.[address] [facility] Work Phone: [phone] Hematocrit (Bld) [Volume fraction] 37.0 % Low 40-54 [facility] Work Phone: Hematocrit (HCT) 37.0 % Low 40-54 [facility] Work Phone: [phone] Hemoglobin (Bld) [Mass/Vol] 12.3 g/dL Low 13.0-16.5 [facility] Work Phone: Immature granulocytes/100 WBC (Bld) 0.800 % Invalid Interpretation Code 0.0-0.9 [facility] Work Phone: Lymphocytes 2.57 X10 3/UL Invalid Interpretation Code 0.83-4.51 [facility] Work Phone: [phone] Lymphocytes (Bld) [#/Vol] 2.57 X10 3/UL Invalid Interpretation Code 0.83-4.51 [facility] Work Phone: Lymphocytes/100 leukocytes 41.1 % High 19-41 [facility] Work Phone: [phone] Lymphocytes/100 WBC (Bld) 41.1 % High 19-41 [facility] Work Phone: MCH 30.7 pg Invalid Interpretation Code 27.0-32.0 [facility] Work Phone: MCH (RBC) [Entitic mass] 30.7 pg Invalid Interpretation Code 27.0-32.0 [facility] Work Phone: MCHC mass conc (RBC) 33.2 G/GL Invalid Interpretation Code 32-36 [facility] Work Phone: MCV 92.3 fL Invalid Interpretation Code 80-94 [facility] Work Phone: MCV (RBC) [Entitic vol] 92.3 fL Invalid Interpretation Code 80-94 [facility] Work Phone: mean corpuscular hemoglobin concentration, RBC 33.2 G/GL Invalid Interpretation Code 32-36 [facility] Work Phone: Monocytes/100 leukocytes 9.0 % Invalid Interpretation Code 0-10 [facility] Work Phone: Monocytes/100 WBC (Bld) 9.0 % Invalid Interpretation Code 0-10 [facility] Work Phone: neutrophil count, blood 3.0 X10 3/UL Invalid Interpretation Code 2.0-7.7 [facility] Work Phone: Neutrophils/100 WBC (Bld) 47.7 % Invalid Interpretation Code 47-70 [facility] Work Phone: Neutrophils/100 WBC Auto (Bld) 47.7 % Invalid Interpretation Code 47-70 [facility] Work Phone: Platelet mean volume (Bld) [Entitic vol] 9.1 fL Invalid Interpretation Code 6.2-12.0 [facility] Work Phone: Platelets 358 10*3/mm3 Invalid Interpretation Code 150-450 [facility] Work Phone: Platelets (Bld) [#/Vol] 358 10*3/uL Invalid Interpretation Code 150-450 [facility] Work Phone: PMV by Veronica 9.1 fL Invalid Interpretation Code 6.2-12.0 [facility] Work Phone: RBC (Bld) [#/Vol] 4.01 10*6/uL Low 4.6-6.2 [facility] Work Phone: [phone] RDW SD 43.9 fL Invalid Interpretation Code 35.1-43.9 [facility] Work Phone: [phone] red blood cell distribution width, size density 43.9 fL Invalid Interpretation Code 35.1-43.9 [facility] Work Phone: [phone] WBC (Bld) [#/Vol] 6.3 10*3/uL Invalid Interpretation Code 4.4-11.0 [facility] Work Phone: [phone] WBC (Leukocytes) 6.3 10*3/uL Invalid Interpretation Code 4.4-11.0 [facility] Work Phone: [phone] Office Visit: s/p severe R l eg streptoccal cellulitis, sepsis and ALICJA; get CBCon 01-11-2016 Smoking cessation education (procedure) yes Invalid Interpretation Code [facility] Work Phone: [phone] Lab Report: Myoglobin, Urine on 01-09-2016 Myoglobin (U) [Mass/Vol] < 2 ng/mL Invalid Interpretation Code 0-13 [facility] Work Phone: [phone] Lab Report: Basic Metabolic Profile (BMP)on 01-07-2016 Anion gap 8 mmol/L Invalid Interpretation Code 5-15 [facility] Work Phone: [phone] Anion gap [Moles/Vol] 8 mmol/L Invalid Interpretation Code 5-15 [facility] Work Phone: [phone] BUN/Creatinine Ratio 13.7 RATIO Invalid Interpretation Code 10-20 [facility] Work Phone: [phone] Calcium [Mass/Vol] 8.3 mg/dL Low 8.5-10.1 [facility] Work Phone: [phone] calculated corrected value of creatinine clearance with body surface area 71.51 mL/min Invalid Interpretation Code [facility] Work Phone: Chloride [Moles/Vol] 110 mmol/L High 98-[address] [facility] Work Phone: [phone] CO2 25.0 mmol/L Invalid Interpretation Code 21.0-32.0 [facility] Work Phone: [phone] CO2 (BldV) [Partial pressure] 25.0 mmol/L Invalid Interpretation Code 21.0-32.0 [facility] Work Phone: [phone] Creatinine 71.51 mL/min Invalid Interpretation Code [facility] Work Phone: [phone] Creatinine [Mass/Vol] 1.17 mg/dL Invalid Interpretation Code 0.70-1.30 [facility] Work Phone: [phone] eGFR (non-black) 82 mL/min/{1.73_m2} Invalid Interpretation Code >60 [facility] Work Phone: [phone] GFR/1.73 sq M.predicted among non-blacks MDRD (S/P/Bld) [Vol rate/Area] 67 mL/min/{1.73_m2} Invalid Interpretation Code >60 [facility] Work Phone: [phone] Glomerular Filtration rate 82 mL/min Invalid Interpretation Code >60 [facility] Work Phone: Glucose [Mass/Vol] 98 mg/dL Invalid Interpretation Code 70-110 [facility] Work Phone: Potassium [Moles/Vol] 4.1 mmol/L Invalid Interpretation Code 3.5-5.1 [facility] Work Phone: Sodium [Moles/Vol] 143 mmol/L Invalid Interpretation Code 136-145 [facility] Work Phone: [phone] Urea nitrogen [Mass/Vol] 16 mg/dL Invalid Interpretation Code 7-18 [facility] Work Phone: Urea nitrogen/Creatinine [Mass ratio] 13.0486010 mg/mg Invalid Interpretation Code 10-20 [facility] Work Phone: Lab Report: CBC W/Diff, Auto matedon 01-07-2016 Pathologist Cyto stain Nom (Cvx/Vag) [ID] May foll Invalid Interpretation Code [facility] Work Phone: Microbiology: Culture, Blood (WB)on 01-07-2016 Bacteria identified Cx Nom (Bld) BC No growth in 5 days. Invalid Interpretation Code [facility] Work Phone: Replaced Document: (P) CBC W /Diff, Automatedon 01-07-2016 CELLS COUNTED 100 Invalid Interpretation Code MANUAL DIFF [facility] Work Phone: [phone] Metamyelocytes/100 leukocytes 4 % High 0-1 [facility] Work Phone: [phone] Metamyelocytes/100 WBC (Bld) 4 % High 0-1 [facility] Work Phone: Myelocytes (Bld) [#/Vol] 1 (?) High 0-0 [facility] Work Phone: [phone] Segmented Neutrophils/100 leukocytes 85 % High 47-70 [facility] Work Phone: [phone] Segmented neutrophils/100 WBC (Bld) 85 % High 47-70 [facility] Work Phone: [phone] total cells counted, blood 100 Invalid Interpretation Code MANUAL DIFF [facility] Work Phone: [phone] TOXIC GRAN 1+ Invalid Interpretation Code [facility] Work Phone: [phone] toxic granulation, blood 1+ Invalid Interpretation Code [facility] Work Phone: [phone] Lab Report: CBC W/Diff, Auto matedon 01-06-2016 Band form neutrophils (Bld) [#/Vol] 4 % Invalid Interpretation Code 0-5 [facility] Work Phone: Blasts/100 WBC (Bld) 1 % Critically high 0-0 [facility] Work Phone: Eosinophils/100 leukocytes 2 % Invalid Interpretation Code 0-5 [facility] Work Phone: [phone] Eosinophils/100 WBC (Bld) 2 % Invalid Interpretation Code 0-5 [facility] Work Phone: Hypochromia presence 1+ Invalid Interpretation Code [facility] Work Phone: [phone] Hypochromia Ql (Bld) 1+ Invalid Interpretation Code [facility] Work Phone: Platelets LM Ql (Bld) ADEQUATE Invalid Interpretation Code ADEQ [facility] Work Phone: Promyelocytes (Bld) [#/Vol] 1 (?) High 0-0 [facility] Work Phone: Replaced Document: CBC W/Dif f, Automatedon 01-05-2016 GE use only - for LinkLogic import when terms are not otherwise specified 5 % Invalid Interpretation Code [facility] Work Phone: PLASMA CELL 5 % Invalid Interpretation Code [facility] Work Phone: RBC morphology finding Nom (Bld) NORM C+C Invalid Interpretation Code NORM C AND C [facility] Work Phone: Lab Report: CPK Total, Creat ine Kinaseon 01-04-2016 CK [Catalytic activity/Vol] 61 U/L Invalid Interpretation Code 39-308 [facility] Work Phone: Lab Report: Prealbuminon Prealbumin 4.8 mg/dL Low 20.0-40.0 [facility] Work Phone: [phone] Prealbumin Elph [Mass/Vol] 4.8 mg/dL Low 20.0-40.0 [facility] Work Phone: Lab Report: (P) Urinalysis, Completeon 01-03-2016 Albumin Ql (U) 30 High Negative [facility] Work Phone: Bilirubin Ql (U) 1 High Negative [facility] Work Phone: Clarity (U) Clear Invalid Interpretation Code Clear [facility] Work Phone: Color (U) Yellow Invalid Interpretation Code Yellow [facility] Work Phone: Glucose Ql (U) Normal mg/dl Invalid Interpretation Code Normal [facility] Work Phone: Ketones (U) [Mass/Vol] Negative Invalid Interpretation Code Negative [facility] Work Phone: Leukocyte esterase Test strip Ql (U) 25 High Negative [facility] Work Phone: NITRITE UR Negative Invalid Interpretation Code Negative [facility] Work Phone: [phone] Occult Blood, urine 10 High Negative [facility] Work Phone: [phone] OCCULT BLOOD-UR 10 High Negative [facility] Work Phone: [phone] pH (U) 5.0 [pH] Invalid Interpretation Code 5.0 - 8.0 [facility] Work Phone: Specific gravity Refractometry (U) [Rel density] 1.015 Invalid Interpretation Code 1.002-1.030 [facility] Work Phone: [phone] Urine, ketones presence Negative Invalid Interpretation Code Negative [facility] Work Phone: [phone] Urine, pH 5.0 [pH] Invalid Interpretation Code 5.0 - 8.0 [facility] Work Phone: [phone] Urine, protein 30 mg/dL High Negative [facility] Work Phone: [phone] UROBILI 8 mg/dL High Normal [facility] Work Phone: [phone] Lab Report: Creatinine, Urin e (random)on 01-03-2016 Creatinine (U) [Mass/Vol] 164.00 mg/dL Invalid Interpretation Code NO RANGE EST. [facility] Work Phone: Lab Report: Urinalysis, Comp leteon 01-03-2016 AMORPHOUS 2+ Invalid Interpretation Code [facility] Work Phone: [phone] Bacteria LM.HPF (Urine sed) [#/Area] 0 /[HPF] Invalid Interpretation Code None Seen [facility] Work Phone: [phone] Epithelial cells LM.HPF (Urine sed) [#/Area] 0-5 SEEN Invalid Interpretation Code 0-5 [facility] Work Phone: Mucus Ql (Urine sed) 0 SEEN Invalid Interpretation Code [facility] Work Phone: [phone] RBC LM.HPF (Urine sed) [#/Vol] 0 SEEN Invalid Interpretation Code 0-5 [facility] Work Phone: Urinalysis, white blood cells, culture and sensitivity 5-10 SEEN Invalid Interpretation Code 0-5 [facility] Work Phone: [phone] Urine, mucus presence in sediment 0 SEEN Invalid Interpretation Code [facility] Work Phone: [phone] WBC (Leukocytes) 5-10 SEEN Invalid Interpretation Code 0-5 [facility] Work Phone: [phone] Lab Report: Urine Sodiumon 0 01-03-2016 Sodium (U) [Moles/Vol] mmol/L Invalid Interpretation Code Not Establ. [facility] Work Phone: [phone] Urine, sodium mmol/L Invalid Interpretation Code Not Establ. [facility] Work Phone: [phone] Lab Report: CBC W/Diff, Auto matedon 08-17-2015 Absolute Lymphocytes 1.42 X10 3/UL Invalid Interpretation Code 0.83-4.51 [facility] Work Phone: [phone] Absolute Neut 3.4 X10 3/UL Invalid Interpretation Code 2.0-7.7 [facility] Work Phone: [phone] Absolute Neutrophil count 3.4 X10 3/UL Invalid Interpretation Code 2.0-7.7 [facility] Work Phone: [phone] Lymphocytes 1.42 X10 3/UL Invalid Interpretation Code 0.83-4.51 [facility] Work Phone: [phone] Lab Report: BNP,B-Type NATRI URETIC PEPTIDEon 03-25-2015 Natriuretic peptide B (Bld) [Mass/Vol] 28.1 pg/mL Invalid Interpretation Code 0-100 [facility] Work Phone: Lab Report: Magnesiumon Magnesium [Mass/Vol] 2.1 mg/dL Invalid Interpretation Code 1.8-2.4 [facility] Work Phone: [phone] Lab Report: Thyroid Stim Hor froy (TSH)on 01-10-2015 Thyroid stimulating hormone (TSH) 1.49 u[iU]/mL Invalid Interpretation Code 0.358-3.74 [facility] Work Phone: [phone] TSH Qn 1.49 m[IU]/L Invalid Interpretation Code 0.358-3.74 [facility] Work Phone: Office Visit: MMMon 01-10-20 15 cardiac risk group C Invalid Interpretation Code [facility] Work Phone: [phone] General cardiovascular disease 10Y risk [#] Perry.D'Javy N/A Invalid Interpretation Code [facility] Work Phone: Replaced Document: Margy Campoverde 07-16-2014 EKG QRS axis -39 deg Invalid Interpretation Code [facility] Work Phone: electrocardiogram interpretation Sinus Rhythm -Left axis -anterior fascicular block. -Anteroseptal infarct -age undetermined. 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 -Anteroseptal infarct -age undetermined. ABNORMAL Invalid Interpretation Code [facility] Work Phone: P Indiahoma 59 deg Invalid Interpretation Code [facility] Work Phone: P wave axis, electrocardiogram 59 deg Invalid Interpretation Code [facility] Work Phone: IL Interval 146 ms Invalid Interpretation Code [facility] Work Phone: IL interval, electrocardiogram 146 ms Invalid Interpretation Code [facility] Work Phone: QRS axis, electrocardiogram -39 deg Invalid Interpretation Code [facility] Work Phone: QRS Duration 96 ms Invalid Interpretation Code [facility] Work Phone: QRS duration, electrocardiogram 96 ms Invalid Interpretation Code [facility] Work Phone: QT Interval new path ms Invalid Interpretation Code [facility] Work Phone: QT interval, electrocardiogram new path ms Invalid Interpretation Code [facility] Work Phone: T Indiahoma 42 deg Invalid Interpretation Code [facility] Work Phone: T wave axis, electrocardiogram 42 deg Invalid Interpretation Code [facility] Work Phone: Lab Report: TROP - copyon Troponin I.cardiac [Mass/Vol] 0.02 ng/mL Normal <0.06 [facility] Work Phone: Lab Report: LIPIDon 05-08-20 13 Lipoprotein.pre-beta [Mass/Vol] 18 mg/dL Normal 5-40 [facility] Work Phone: Lab Report: LIVERon 05-08-20 13 Albumin [Mass/Vol] 3.7 g/dL Normal 3.4-5.0 [facility] Work Phone: Alkaline phosphatase (ALP) 97 U/L Normal 50-136 [facility] Work Phone: [phone] ALP (Bld) [Catalytic activity/Vol] 97 U/L Normal 50-136 [facility] Work Phone: ALT [Catalytic activity/Vol] 26 U/L Normal 12-78 [facility] Work Phone: AST [Catalytic activity/Vol] 17 U/L Normal 15-37 [facility] Work Phone: Bilirubin [Mass/Vol] 0.60 mg/dL Normal 0.00-1.[address] [facility] [address] [facility] Work Phone: Bilirubin.direct [Mass/Vol] 0.12 mg/dL Normal 0.00-0.30 [facility] Work Phone: Replaced Document: Margy Dejesus CG Observationson 04-20-2013 Pulse (Heart Rate) 380 ms Invalid Interpretation Code [facility] Work Phone: [phone] QT interval/QT interval (corrected for heart rate), electrocardiogram 380 ms Invalid Interpretation Code [facility] Work Phone: Lab Report: PTon 08-11-2010 INR Coag (PPP) [Relative time] 1.0 {INR} Normal [facility] Work Phone: prothrombin time, actual/normal, ratio 10.8 SECONDS Normal 9.1-11.7 [facility] Work Phone: Vital Signs Date Time Vital Sign Value Performing Clinician Facility 05-09-2025 02:53-0400 Body temperature 98.2 [degF] Dr. Speedy Boswell MD Work Phone: [facility] 05-09-2025 02:53-0400 Diastolic blood pressure 82 mm[Hg] Dr. Speedy Boswell MD Work Phone: [phone] [address] 05-09-2025 02:53-0400 Heart rate 57 /min Dr. Speedy Boswell MD Work Phone: [phone] [place] [address] 05-09-2025 02:53-0400 Respiratory rate 16 /min Dr. Speedy Boswell MD Work Phone: [phone] [address] 05-09-2025 02:53-0400 SaO2% (BldA) [Mass fraction] 97 % Dr. Speedy Boswell MD Work Phone: [phone])[phone] [place] [address] 05-09-2025 02:53-0400 Systolic blood pressure 104 mm[Hg] Dr. Speedy Boswell MD Work Phone: [phone])192-029187 [place] [address] 05-09-2025 00:02-0400 Body height 170.[address] Speedy Boswell MD Work Phone: [phone] [place] [address] 05-09-2025 00:02-0400 Body mass index (BMI) [Ratio] 48 kg/m2 Dr. Speedy Boswell MD Work Phone: [phone])[phone] [place] [address] 05-09-2025 00:02-0400 Body weight 139.[address] Speedy Boswell MD Work Phone: [facility] 05-03-2025 11:28-0400 Body height 170.[address] Speedy Boswell MD Work Phone: [phone] [place] [address] 05-03-2025 11:28-0400 Body mass index (BMI) [Ratio] 46 kg/m2 Dr. Speedy Boswell MD Work Phone: [phone])[phone] [address] 05-03-2025 11:28-0400 Body weight 133.[address] Speedy Boswell MD Work Phone: [facility] 05-03-2025 11:28-0400 Diastolic blood pressure 57 mm[Hg] Dr. Speedy Boswell MD Work Phone: [facility] 05-03-2025 11:28-0400 Heart rate 57 /min Dr. Speedy Boswell MD Work Phone: [facility] 05-03-2025 11:28-0400 Respiratory rate 18 /min Dr. Speedy Boswell MD Work Phone: [facility] 05-03-2025 11:28-0400 Systolic blood pressure 101 mm[Hg] Dr. Speedy Boswell MD Work Phone: [facility] 03-30-2024 14:12-0400 Body height 180.3 cm Kel Nielsen MD Work Phone: [facility] 03-30-2024 14:12-0400 Body mass index (BMI) [Ratio] 38.77 kg/m2 Kel Nielsen MD Work Phone: [facility] 03-30-2024 14:12-0400 Body weight 126.1 kg Kel Nielsen MD Work Phone: [facility] 01-07-2024 06:15-0500 Body temperature 97.11 [degF] David Ramirez MD Work Phone: [facility] 01-07-2024 06:15-0500 Diastolic blood pressure 63 mm[Hg] David Ramirez MD Work Phone: [facility] 01-07-2024 06:15-0500 Heart rate 70 /min David Ramirez MD Work Phone: [facility] 01-07-2024 06:15-0500 Respiratory rate 18 /min David Ramirez MD Work Phone: [facility] 01-07-2024 06:15-0500 SaO2% (BldA) [Mass fraction] 93 % David Ramirez MD Work Phone: [facility] 01-07-2024 06:15-0500 Systolic blood pressure 109 mm[Hg] David Ramirez MD Work Phone: [facility] 01-06-2024 07:48-0500 Body height 170.2 cm David Ramirez MD Work Phone: [facility] 01-06-2024 07:48-0500 Body mass index (BMI) [Ratio] 46.05 kg/m2 David Ramirez MD Work Phone: [facility] 01-06-2024 07:48-0500 Body weight 133.36 kg David Ramirez MD Work Phone: [facility] 10-30-2023 15:12-0500 Body height 172.[address] Speedy Boswell Work Phone: [facility] 10-30-2023 15:12-0500 Body mass index (BMI) [Ratio] 44.6 kg/m2 Dr. Speedy Boswell Work Phone: [facility] 10-30-2023 15:12-0500 Body weight 133.[address] Speedy Boswell Work Phone: [facility] 10-30-2023 15:12-0500 Diastolic blood pressure 70 mm[Hg] Dr. Speedy Boswell Work Phone: [facility] 10-30-2023 15:12-0500 Heart rate 60 /min Dr. Speedy Boswell Work Phone: [facility] 10-30-2023 15:12-0500 Respiratory rate 18 /min Dr. Speedy Boswell Work Phone: [facility] 10-30-2023 15:12-0500 Systolic blood pressure 111 mm[Hg] Dr. Speedy Boswell Work Phone: [facility] 09-10-2023 14:36-0400 Body height 172.[address] Speedy Boswell Work Phone: [facility] 09-10-2023 14:36-0400 Diastolic blood pressure 75 mm[Hg] Dr. Speedy Boswell Work Phone: [facility] 09-10-2023 14:36-0400 Heart rate 60 /min Dr. Speedy Boswell Work Phone: [facility] 09-10-2023 14:36-0400 Respiratory rate 20 /min Dr. Speedy Boswell Work Phone: [facility] 09-10-2023 14:36-0400 Systolic blood pressure 116 mm[Hg] Dr. Speedy Boswell Work Phone: [facility] 08-26-2023 15:31-0400 Body height 180.3 cm Kel Nielsen MD Work Phone: [facility] 08-26-2023 15:31-0400 Body mass index (BMI) [Ratio] 38.77 kg/m2 Kel Nielsen MD Work Phone: [facility] 08-26-2023 15:31-0400 Body weight 126.1 kg Kel Nielsen MD Work Phone: [facility] 02-11-2023 15:35-0400 Body height 180.3 cm Kel Nielsen MD Work Phone: [facility] 02-11-2023 15:35-0400 Body mass index (BMI) [Ratio] 38.77 kg/m2 Kel iNelsen MD Work Phone: [facility] 02-11-2023 15:35-0400 Body weight 126.1 kg Kel Nielsen MD Work Phone: [facility] 02-11-2023 15:35-0400 Diastolic blood pressure 73 mm[Hg] Kel Nielsen MD Work Phone: [facility] 02-11-2023 15:35-0400 Systolic blood pressure 116 mm[Hg] Kel Nielsen MD Work Phone: [facility] 10-27-2022 20:07-0500 Diastolic blood pressure 74 mm[Hg] Dr. Speedy Boswell Work Phone: [facility] 10-27-2022 20:07-0500 Heart rate 76 /min Dr. Speedy Boswell Work Phone: [facility] 10-27-2022 20:07-0500 Respiratory rate 19 /min Dr. Speedy Boswell Work Phone: [facility] 10-27-2022 20:07-0500 SaO2% (BldA) [Mass fraction] 95 % Dr. Speedy Boswell Work Phone: [facility] 10-27-2022 20:07-0500 Systolic blood pressure 110 mm[Hg] Dr. Speedy Boswell Work Phone: [facility] 10-27-2022 16:09-0500 Body height 172.[address] Speedy Boswell Work Phone: [facility] 10-27-2022 16:09-0500 Body mass index (BMI) [Ratio] 43.2 kg/m2 Dr. Speedy Boswell Work Phone: [facility] 10-27-2022 16:09-0500 Body temperature 98.1 [degF] Dr. Speedy Boswell Work Phone: [facility] 10-27-2022 16:09-0500 Body weight 128.[address] Speedy Boswell Work Phone: [facility] 08-20-2022 13:26-0400 Body height 180.[address] Speedy Boswell Work Phone: [facility] Work Phone: 08-20-2022 13:26-0400 Body mass index (BMI) [Ratio] 39.6 kg/m2 Dr. Speedy Boswell Work Phone: [facility] Work Phone: 08-20-2022 13:26-0400 Body weight 128.[address] Speedy Boswell Work Phone: [facility] Work Phone: 08-20-2022 13:26-0400 Diastolic blood pressure 55 mm[Hg] Dr. Speedy Boswell Work Phone: [facility] Work Phone: 08-20-2022 13:26-0400 Heart rate 60 /min Dr. Speedy Boswell Work Phone: [facility] Work Phone: 08-20-2022 13:26-0400 Respiratory rate 18 /min Dr. Speedy Boswell Work Phone: [facility] Work Phone: 08-20-2022 13:26-0400 Systolic blood pressure 111 mm[Hg] Dr. Speedy Boswell Work Phone: [facility] Work Phone: 08-09-2022 14:24-0400 Body mass index (BMI) [Ratio] 39.6 kg/m2 Dr. Speedy Boswell Work Phone: [facility] Work Phone: 08-09-2022 14:24-0400 Body weight 128.[address] Speedy Boswell Work Phone: [facility] Work Phone: 02-05-2022 11:38-0500 Body height 180.[address] Speedy Boswell Work Phone: [facility] Work Phone: 02-05-2022 11:38-0500 Body weight 135.[address] Speedy Boswell Work Phone: [facility] Work Phone: 02-05-2022 11:38-0500 Diastolic blood pressure 73 mm[Hg] Dr. Spedey Boswell Work Phone: [facility] Work Phone: 02-05-2022 11:38-0500 Heart rate 66 /min Dr. Speedy Boswell Work Phone: [facility] Work Phone: 02-05-2022 11:38-0500 Respiratory rate 18 /min Dr. Speedy Boswell Work Phone: [facility] Work Phone: 02-05-2022 11:38-0500 SaO2% (BldA) [Mass fraction] 97 % Dr. Speedy Boswell Work Phone: [facility] Work Phone: 02-05-2022 11:38-0500 Systolic blood pressure 125 mm[Hg] Dr. Speedy Bowsell Work Phone: [facility] Work Phone: 02-05-2022 10:38-0500 Body height 180.[address] Speedy Boswell Work Phone: [facility] Work Phone: 02-05-2022 10:38-0500 Body weight 135.[address] Speedy Boswell Work Phone: [facility] Work Phone: 02-05-2022 10:38-0500 Diastolic blood pressure 73 mm[Hg] Dr. Speedy Boswell Work Phone: [facility] Work Phone: 02-05-2022 10:38-0500 Heart rate 66 /min Dr. Speedy Boswell Work Phone: [facility] Work Phone: 02-05-2022 10:38-0500 Respiratory rate 18 /min Dr. Speedy Boswell Work Phone: [facility] Work Phone: 02-05-2022 10:38-0500 SaO2% (BldA) [Mass fraction] 97 % Dr. Speedy Boswell Work Phone: [facility] Work Phone: 02-05-2022 10:38-0500 Systolic blood pressure 125 mm[Hg] Dr. Speedy Boswell Work Phone: [facility] Work Phone: 01-15-2022 23:03-0500 Diastolic blood pressure 62 mm[Hg] Dr. Speedy Boswell Work Phone: [facility] Work Phone: 01-15-2022 23:03-0500 Systolic blood pressure 118 mm[Hg] Dr. Speedy Boswell Work Phone: [facility] Work Phone: 01-15-2022 19:47-0500 Body mass index (BMI) [Ratio] 41 kg/m2 Dr. Speedy Boswell Work Phone: [facility] Work Phone: 01-15-2022 19:47-0500 Body temperature 98 [degF] Dr. Speedy Boswell Work Phone: [facility] Work Phone: 01-15-2022 19:47-0500 Body weight 133.[address] Speedy Boswell Work Phone: [facility] Work Phone: 01-15-2022 19:47-0500 Heart rate 71 /min Dr. Speedy Boswell Work Phone: [facility] Work Phone: 01-15-2022 19:47-0500 Respiratory rate 15 /min Dr. Speedy Boswell Work Phone: [facility] Work Phone: 01-15-2022 19:47-0500 SaO2% (BldA) [Mass fraction] 99 % Dr. Speedy Boswell Work Phone: [facility] Work Phone: 06-01-2021 00:25-0400 Body temperature 97.81 [degF] Roni Figueroa MD Work Phone: [facility] Work Phone: 06-01-2021 00:25-0400 Diastolic blood pressure 93 mm[Hg] Roni Figueroa MD Work Phone: [facility] Work Phone: 06-01-2021 00:25-0400 Heart rate 82 /min Roni Figueroa MD Work Phone: [facility] Work Phone: 06-01-2021 00:25-0400 Respiratory rate 17 /min Roni Figueroa MD Work Phone: [facility] Work Phone: 06-01-2021 00:25-0400 SaO2% (BldA) [Mass fraction] 98 % Roni Figueroa MD Work Phone: [facility] Work Phone: 06-01-2021 00:25-0400 Systolic blood pressure 155 mm[Hg] Roni Figueroa MD Work Phone: [facility] Work Phone: 05-24-2021 00:05-0400 Body height 180.3 cm Roni Figueroa MD Work Phone: [facility] Work Phone: 05-24-2021 00:05-0400 Body mass index (BMI) [Ratio] 38.77 kg/m2 Roni Figueroa MD Work Phone: [facility] Work Phone: 05-24-2021 00:05-0400 Body weight 126.1 kg Roni Figueroa MD Work Phone: [facility] Work Phone: 03-22-2021 14:14-0400 Body mass index (BMI) [Ratio] 41 kg/m2 Dr. Speedy Boswell Work Phone: [facility] Work Phone: 03-22-2021 14:14-0400 Body mass index (BMI) [Ratio] 41 kg/m2 Dr. Speedy Boswell Work Phone: [facility] Work Phone: 07-03-2017 08:47-0400 Body height 181.61 cm Lowell Otero MD [facility] Work Phone: 07-03-2017 08:47-0400 Body mass index (BMI) [Ratio] 44.75 kg/m2 Lowell Otero MD [facility] Work Phone: 07-03-2017 08:47-0400 Body surface area Derived from formula 2.61 m2 Lowell Otero MD [facility] Work Phone: 07-03-2017 08:47-0400 Body temperature 96.9 [degF] Lowell Otero MD [facility] Work Phone: 07-03-2017 08:47-0400 Body weight 147.6 kg Lowell Otero MD [facility] Work Phone: 07-03-2017 08:47-0400 Diastolic blood pressure 81 mm[Hg] Lowell Otero MD [facility] Work Phone: 07-03-2017 08:47-0400 Heart rate 64 /min Lowell Otero MD [facility] Work Phone: 07-03-2017 08:47-0400 Respiratory rate 18 /min Lowell Otero MD [facility] Work Phone: 07-03-2017 08:47-0400 Systolic blood pressure 129 mm[Hg] Lowell Otero MD [facility] Work Phone: 07-03-2017 08:47-0400 Weight 147.6 kg Peg Deng RN [facility] Work Phone: 06-19-2017 10:56-0400 Body height 181.61 cm Cary George MD Work Phone: [facility] Work Phone: 06-19-2017 10:56-0400 Body mass index (BMI) [Ratio] 44 kg/m2 Cary George MD Work Phone: [facility] Work Phone: 06-19-2017 10:56-0400 Body temperature 97.2 [degF] Cary George MD Work Phone: [facility] Work Phone: 06-19-2017 10:56-0400 Body weight 145.15 kg Cary George MD Work Phone: [facility] Work Phone: 06-19-2017 10:56-0400 Diastolic blood pressure 76 mm[Hg] Cary George MD Work Phone: [facility] Work Phone: 06-19-2017 10:56-0400 Heart rate 75 /min Cary George MD Work Phone: [facility] Work Phone: 06-19-2017 10:56-0400 Respiratory rate 18 /min Cary George MD Work Phone: [facility] Work Phone: 06-19-2017 10:56-0400 Systolic blood pressure 106 mm[Hg] Cary George MD Work Phone: [facility] Work Phone: 06-14-2017 13:20-0400 [...] 05-23-2017 12:15-0400 Body weight 145.06 kg [facility] Work Phone: 05-23-2017 12:15-0400 Diastolic blood pressure 56 mm[Hg] Rizwana Johnson LPN [facility] Work Phone: 05-23-2017 12:15-0400 Heart rate 69 /min [facility] Work Phone: 05-23-2017 12:15-0400 Respiratory rate 20 /min [facility] Work Phone: 05-23-2017 12:15-0400 SaO2% (BldA) [Mass fraction] 98 % Rizwana Johnson LPN [facility] Work Phone: 05-23-2017 12:15-0400 Systolic blood pressure 113 mm[Hg] [facility] Work Phone: 05-15-2017 10:40-0400 Body surface area Derived from formula 2.61 m2 Rizwana Alex CHAIREZ [facility] Work Phone: 05-01-2017 09:51-0400 Body mass index (BMI) [Ratio] 44.86 kg/m2 Arlene Signs [facility] Work Phone: 05-01-2017 09:51-0400 Body temperature 96.7 [degF] Arlene Signs [facility] Work Phone: 05-01-2017 09:51-0400 Body weight 147.96 kg Arlene Signs [facility] Work Phone: 05-01-2017 09:51-0400 Diastolic blood pressure 66 mm[Hg] Arlene Signs [facility] Work Phone: 05-01-2017 09:51-0400 Heart rate 61 /min Arlene Signs [facility] Work Phone: 05-01-2017 09:51-0400 SaO2% (BldA) [Mass fraction] 100 % [facility] Work Phone: 05-01-2017 09:51-0400 Systolic blood pressure 110 mm[Hg] Ar[facility] Work Phone: 04-03-2017 10:29-0400 Body height 181.61 cm [facility] Work Phone: 04-03-2017 10:29-0400 Body mass index (BMI) [Ratio] 44.39 kg/m2 Arlene Signs [facility] Work Phone: 04-03-2017 10:29-0400 Body temperature 97.2 [degF] Arlene Signs [facility] Work Phone: 04-03-2017 10:29-0400 Body weight 146.42 kg [facility] Work Phone: 04-03-2017 10:29-0400 Diastolic blood pressure 61 mm[Hg] Arlene Signs [facility] Work Phone: 04-03-2017 10:29-0400 Heart rate 64 /min Arlene Signs [facility] Work Phone: 04-03-2017 10:29-0400 Respiratory rate 22 /min [facility] Work Phone: 04-03-2017 10:29-0400 SaO2% (BldA) [Mass fraction] 97 % [facility] Work Phone: 04-03-2017 10:29-0400 Systolic blood pressure 96 mm[Hg] Arlene Signs [facility] Work Phone: 12-14-2016 13:36-0500 Body surface area Derived from formula 2.61 m2 Arleneronn Tavarez MD [facility] Work Phone: Encounters Encounter Date Encounter Type Care Provider Facility Start: 05-20-2025 End: 05-20-[address] Speedy Boswell MD Work Phone: -[facility] Start: 05-20-2025 End: 05-20-[address] Ge Tomlinosn MD -[facility] Work Phone: Start: 05-12-2025 End: 05-12-[address] Speedy Boswell MD Work Phone: [facility] Work Phone: Start: 05-12-2025 End: 05-12-[address] Speedy Boswell MD -[facility] Start: 05-12-2025 End: 05-12-2025 ambulatory Speedy Boswell Facility:[facility] Start: 05-09-2025 End: 05-09-2025 Emergency department patient visit Dr. Speedy Boswell MD Work Phone: -Emergency Department Work Phone: Start: 05-03-2025 End: 05-03-[address] Delilah Villagomez MD -[facility] Work Phone: Start: 05-03-2025 End: 05-03-[address] Speedy Boswell MD Work Phone: [facility] Work Phone: Start: 02-18-2025 End: 02-18-2025 ambulatory Ge Tomlinson Facility:[facility] Start: 02-18-2025 End: 02-18-[address] Ge Tomlinson MD -[facility] Work Phone: Start: 02-04-2025 End: 02-04-2025 ambulatory Ge Tomlinson Facility:[facility] Start: 02-04-2025 End: 02-04-[address] Ge Tomlinson MD -[facility] Work Phone: Start: 01-25-2025 End: 01-25-2025 ambulatory Ge Tomlinson Facility:[facility] Start: 01-25-2025 End: 01-25-[address] Ge Tomlinson MD -[facility] Work Phone: Start: 12-11-2024 End: 12-11-2024 ambulatory Speedy Boswell Facility:[facility] Start: 11-19-2024 End: 11-19-2024 ambulatory Speedy Boswell Facility:[facility] Start: 11-18-2024 End: 11-18-2024 ambulatory Ravi Holder Facility:[facility] Start: 11-04-2024 End: 11-04-2024 ambulatory Delilah Villagomez Facility:[facility] Start: 10-26-2024 End: 10-26-2024 Emergency department patient visit Speedy Boswell Facility:[facility] Start: 10-20-2024 End: 10-21-2024 Emergency department patient visit Speedy Boswell Facility:[facility] Start: 09-10-2024 End: 09-10-2024 ambulatory Speedy Boswell Facility:[facility] Start: 08-01-2024 End: 08-01-2024 ambulatory Speedy Boswell Facility:[facility] Start: 06-29-2024 End: 06-29-2024 Emergency department patient visit Speedy Boswell Facility:[facility] Start: 06-11-2024 End: 06-12-2024 ambulatory Speedy Boswell Facility:[facility] Start: 03-30-2024 End: 03-30-2024 ambulatory KEL NIELSEN [facility] Start: 03-30-2024 End: 03-30-2024 Patient encounter procedure Kel Nielsen MD Work Phone: [facility] Comment on above: Arthritis of left kelsey btalar joint Start: 03-05-2024 End: 03-05-[address] Speedy Boswell Work Phone: [facility] Work Phone: Start: 03-05-2024 End: 03-05-[address] Speedy Boswell Work Phone: [facility]-Radiology, [facility] Work Phone: Start: 01-20-2024 End: 01-20-[address] Speedy Boswell Work Phone: [facility] Work Phone: Start: 01-16-2024 End: 01-16-[address] Speedy Boswell Work Phone: [facility] Work Phone: Start: 01-16-2024 End: 01-16-[address] Speedy Boswell Work Phone: [facility]-Laboratory Work Phone: Start: 01-06-2024 End: 01-07-2024 ambulatory SPEEDY OBSWELL Facility:[facility] Start: 01-06-2024 End: 01-07-2024 Subsequent hospital visit by physician David Ramirez MD Work Phone: [facility] Comment on above: Pacemaker lead malfu nction Start: 11-28-2023 End: 11-28-[address] Speedy Boswell Work Phone[facility] Start: 11-21-2023 End: 11-21-2023 ambulatory DAVID RAMIREZ Facility:[facility] Start: 11-21-2023 ambulatory CARMEN CHAVEZ [facility] y:[facility] Start: 11-21-2023 End: 11-21-2023 Subsequent hospital visit by physician Carmen Chavez MD Work Phone: [facility] Start: 11-01-2023 End: 11-01-[address] Speedy Boswell Work Phone: [facility] Work Phone: Start: 10-30-2023 End: 10-30-[address] Speedy Boswell Work Phone: [facility] Work Phone: Start: 09-24-2023 Non-patient / Non-visit Dr. Mika Boswell Work Phone: [facility] Work Phone: Start: 09-24-2023 Non-patient / Non-visit Dr. Mika Boswell Work Phone: [facility] Start: 09-24-2023 End: 09-24-[address] Speedy Boswell Work Phone: [facility] Work Phone: Start: 09-24-2023 End: 09-24-[address] Speedy Boswell Work Phone: [facility]-Cardiovascul ar Services Work Phone: Start: 09-11-2023 ambulatory [facility] Facility:[facility] Start: 09-10-2023 End: 09-10-[address] Speedy Boswell Work Phone: [facility] Work Phone: Start: 08-26-2023 End: 08-26-2023 ambulatory KEL NIELSEN [facility] Start: 08-26-2023 End: 08-26-2023 Patient encounter procedure Kel Nielsen MD Work Phone: [facility] Comment on above: Arthritis of left kelsey btalar joint Start: 02-11-2023 End: 02-11-2023 Patient encounter procedure Kel Nielsen MD Work Phone: [facility] Comment on above: Arthritis of left kelsey btalar joint Start: 01-17-2023 End: 01-17-[address] Speedy Boswell Work Phone: [facility] Work Phone: Start: 01-17-2023 End: 01-17-[address] Speedy Boswell Work Phone: [facility]-Laboratory Start: 11-20-2022 End: 11-20-[address] Speedy Boswell Work Phone: [facility] Start: 10-27-2022 End: 10-27-2022 Emergency department patient visit Dr. Speedy Boswell Work Phone: [facility]-Emergency Department Start: 08-29-2022 End: 08-29-[address] Speedy Boswell Work Phone: [facility] Work Phone: Start: 08-29-2022 End: 08-29-[address] Speedy Boswell Work Phone: [facility]-Occupational Therapy Start: 08-20-2022 End: 08-20-[address] Speedy Boswell Work Phone: [facility] Start: 08-09-2022 End: 08-09-[address] Speedy Boswell Work Phone: [facility] Start: 06-22-2022 End: 06-22-[address] [facility] Start: 06-20-2022 End: 06-20-[address] Speedy Boswell Work Phone: [facility] Start: 05-24-2022 End: 05-24-[address] Speedy Boswell Work Phone: [facility] Start: 05-22-2022 End: 05-22-[address] Speedy Boswell Work Phone: [facility] Start: 05-10-2022 End: 05-10-[address] Speedy Boswell Work Phone: [facility] Start: 02-15-2022 End: 02-15-[address] Speedy Boswell Work Phone: [facility] Start: 02-07-2022 End: 02-07-[address] Speedy Boswell Work Phone: [facility] Start: 02-05-2022 End: 02-05-[address] [facility] Start: 01-24-2022 End: 01-24-[address] Speedy Boswell Work Phone: [facility]Andriy Moreno [facility] Start: 01-15-2022 End: 01-16-2022 Emergency department patient visit Dr. Speedy Boswell Work Phone: [facility]-Emergency Department Start: 05-23-2021 End: 06-01-2021 Evaluation and management of inpatient Roni Figueroa MD Work Phone: [facility] Comment on above: Acute traumatic pain (Primary Dx) Start: 02-16-2011 End: 06-01-2016 Preoperative cardiovascular examination Arlene [facility]s [facility] Work Phone: Procedures Date Procedure Procedure Detail Performing Clinician Start: 05-12-2025 CT angiography of chest with contrast Dr. Speedy Boswell MD Work Phone: Start: 05-09-2025 X-ray of chest, PA and lateral views Dr. Speedy Boswell MD Work Phone: Start: 05-09-2025 D-dimer assay, quantitative Dr. Speedy mckeon MD Work Phone: Comment on above: D-Dimer ELEVATED (>0.49): Additional steve dies and clinicalassessments are indicated to conclude diagnosis of:Deep Vein Thrombosis (DVT) or Pulmonary Embolism (PE)CRITICAL VALUE CALLED TO [id number]/08/25 Helena7 Beto Stark.RESULTS READ BACK BY SAME. Start: 05-09-[address] Speedy Boswell MD Work Phone: Start: 03-05-2024 CT of lower limb with contrast Dr. Speedy Boswell Work Phone: Start: 03-05-[address] 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 Work Phone: Start: 01-06-2024 Radiologic exam chest 2 views Manuel Redd MD Work Phone: Start: 01-06-2024 Insj 1 transvns eltrd perm pacemaker/impltbl dfb David Ramirez MD Work Phone: Start: 01-06-2024 CBC AND ELECTRONIC DIFF Wilda A Donova n CERTIFIED MASTER SAFE TECHNICIAN-SOCIAL SCIENCE PROFESSOR Work Phone: Start: 01-06-2024 Complete blood count with white cell differential, automated Wilda A Ashish CERTIFIED MASTER SAFE TECHNICIAN-SOCIAL SCIENCE PROFESSOR Work Phone: Start: 01-06-2024 Creatinine blood Wilda A Ashish CERTIFIED MASTER SAFE TECHNICIAN-SOCIAL SCIENCE PROFESSOR Work Phone: Start: 01-06-2024 Ecg routine ecg w/least 12 lds w/i&r Wilda A Ashish CERTIFIED MASTER SAFE TECHNICIAN-SOCIAL SCIENCE PROFESSOR Work Phone: Start: 11-21-2023 DEVICE EVALUATION Other Other Start: 09-24-2023 Cardiovascular stress test using pharmacologic stress agent Dr. Speedy Boswell Work Phone: Start: 10-27-2022 Plain chest X-ray Dr. Speedy Boswell Work Phone: Start: 08-09-2022 Plain x-ray of elbow Dr. Speedy Boswell Work Phone: Start: 05-24-2022 MRI of lower extremity Dr. Speedy Boswell Work Phone: Start: 02-15-[address] Speedy Boswell Work Phone: Start: 01-15-2022 CT of abdomen and pelvis without contrast Dr. Speedy Boswell Work Phone: Start: 05-31-2021 COVID-19 Hamilton Mckinnon CERTIFIED MASTER SAFE TECHNICIAN - MECHANICS SUPERVISOR Work Phone: Start: 05-29-2021 Dup-scan xtr veins complete bilateral study Hamilton Mckinnon CERTIFIED MASTER SAFE TECHNICIAN - MECHANICS SUPERVISOR Work Phone: Start: 05-25-2021 Basic metabolic panel calcium total Sd Moreno PA-C Work Phone: Start: 05-24-2021 OPERATIVE REPORT 3m Scanning Start: 05-24-2021 Radex humerus minimum 2 views Sd Díazer PA-C Work Phone: Start: 05-24-2021 Radex elbow complete minimum 3 views Juan Alberto Fontana MD Work Phone: Start: 05-24-2021 Chest x-ray 1 view frontal Juan Alberto correa MD Work Phone: Start: 05-24-2021 Antibody screen Roni Figueroa MD Work Phone: Start: 05-24-2021 Ecg routine ecg w/least 12 lds w/i&r Juan Alberto Fontana MD Work Phone: Start: 05-24-2021 Basic metabolic panel calcium total Linda Mcknight MD Work Phone: Start: 05-24-2021 Blood typing serologic abo Juan Alberto correa MD Work Phone: Start: 09-13-2017 End: [...] Start: 06-01-2016 End: 06-22-2016 Nuclear stress test -Lexbrian Giles PA-C Work Phone: Start: 06-01-2016 End: 08-22-2016 Pacer Clinic Divina Giles PA-C Work Phone: Start: 06-01-2016 End: 06-01-2016 PF Divina Giles PA-C Work Phone: Start: 06-01-2016 End: 06-01-2016 Prgrmg eval implantable in prsn dual lead dfb Divina Giles PA-C Work Phone: Start: 06-01-2016 End: 08-22-2016 Follow Up Appt 3 months Divina Giles PA-C Work Phone: Start: 06-01-2016 End: 06-01-2016 Follow Up Appt 6 months Divina Giles PA-C Work Phone: Start: 06-01-2016 End: 06-01-2016 [facility] Divina Giles PA-C Work Phone: Start: 06-01-2016 End: 06-22-2016 Nuclear stress test -Do Giles PA-C Work Phone: Start: 06-01-2016 End: 08-22-2016 Pacer Clinic Divina Giles PA-C Work Phone: Start: 06-01-2016 End: 06-01-2016 PF Divina Giles PA-C Work Phone: Start: 06-01-2016 [...] Speedy Mtz MD Start: 11-30-2015 End: 11-30-2015 BECKY Mtz MD Start: 11-30-2015 End: 05-18-2016 Pacer [...] Speedy Mtz MD Start: 11-30-2015 End: 11-30-2015 BECKY Mtz MD Start: 11-30-2015 End: 05-18-2016 Pacer [...] 2000 panel - Serum or Plasma Speedy tMz MD Start: 05-04-2015 End: 07-20-2015 Follow Up Appt 3 months Speedy Mtz MD Start: 05-04-2015 End: 07-20-2015 MMM Speedy Mtz MD Start: 05-02-2015 End: 05-05-2015 *BMP Speedy Mtz MD Start: 05-02-2015 End: 05-05-2015 Basic metabolic 2000 panel - Serum or Plasma Speedy Mtz MD Start: 03-30-2015 End: 07-20-2015 Follow Up Appt Other JANICE AntonC Work Phone: Start: 03-30-2015 End: 07-20-2015 Follow Up Appt Other Divina Giles PA-C Work Phone: Start: 03-16-2015 End: 03-25-2015 *BMP Divina Giles PA-C Work Phone: Start: 03-16-2015 End: 03-25-2015 *CBC with Differential Divina Giles PA-C Work Phone: Start: 03-16-2015 [...] metabolic 2000 panel - Serum or Plasma iDvina Giles PA-C Work Phone: Start: 03-07-2015 End: 03-08-2015 Documentation of current medications Divina Giles PA-C Work Phone: Start: 03-07-2015 End: 03-07-2015 Follow Up Appt Other Divina Giles PA-C Work Phone: Start: 03-07-2015 End: 03-08-2015 Documentation of current medications Divina Giles PA-C Work Phone: Start: 03-07-2015 End: 03-07-2015 Follow Up Appt Other Diivna Giles PA-C Work Phone: Start: 01-10-2015 End: [...] Phone: Start: 01-10-2015 Lipid 1996 panel - Serum or Plasma Kel Nielsen MD Work Phone: [...] End: 01-07-2014 PFM Speedy Mtz MD Start: 11-06-2013 End: 01-10-2015 [...] W Auto Differential panel - Blood Chano Stoelo MD Work Phone: Start: 10-16-2013 End: 10-28-2013 [...] MMM Divina Giles PA-C Work Phone: Start: 07-01-2013 [...] Khris Spencer MD Start: 04-17-2012 End: 04-17-2013 Tube Handler Khris Spencer MD Start: 04-17-2012 End: 04-17-2012 [...] Follow Up Appt Lois Spencer MD Start: 12-10-2011 End: 12-10-2011 Follow Up Appt Lois Spencer MD Start: 02-16-2011 Implantation of automatic cardiac defibrillator IMPLANTATION OF DEFIBRILLATOR, HX OF Arleneronn Tavarez MD Start: 06-01-2005 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 Speedy Boswell Work Phone: Comment on above: CABG x2- PARK to LAD, SARIAH to OM 5 History of coronary artery bypass grafting Hx of CABG Dr. Speedy Boswell Work Phone: History of operative procedure on knee S/P arthroscopic partial medial meniscectomy of left knee Dr. Speedy Boswell MD Work Phone: Viral antigen assay Dr. Speedy Boswell Work Phone: Viral antigen assay Dr. Speedy Boswell Work Phone: Plan of Treatment Date Care Activity Detail Author Start: 12-20-2033 Tetanus vaccination [facility] Start: 06-10-2025 ambulatory Ambulatory Facility:[facility] Start: 05-09-2025 [facility] Start: 05-09-2025 [facility] Start: 01-07-2025 Potassium [Moles/volume] in Serum or Plasma [facility]AS[facility] Start: 11-21-2024 Potassium [Moles/volume] in Serum or Plasma [facility] Start: 08-02-2024 Influenza vaccination Influenza Vaccine (Season Ended) [facility] Start: 05-27-2024 DTaP/Tdap/Td vaccine (3 - Td or Tdap) DTaP/Tdap/Td vaccine (3 - Td or Tdap) [facility] Work Phone: Start: 05-27-2024 DTaP/Tdap/Td Vaccines (3 - Td or Tdap) DTaP/Tdap/Td Vaccines (3 - Td or Tdap) [facility] Start: 05-27-2024 Tetanus vaccination [facility] Start: 12-04-2023 End: 12-04-2023 Admission to same day surgery center 12/04/2023 9:45 AM EST - 12/04/2023 12:15 PM EST Surgery Cardiovascular Imaging Lab [facility] [address] [place] [id number] Justin Pittman MD [address] [place] [id number] ICD Generator Changeout Cardiovascular Imaging Lab [facility] Comment on above: ICD Generator Changeout Start: 12-04-2023 Subsequent hospital visit by physician 12/04/2023 9:45 AM EST Hospital Encounter [facility] [address] [place] [address] Justin Pittman MD [address] [place] [address] ICD (implantable cardioverter-defibrill ator) battery depletion [facility] Comment on above: ICD (implantable cardioverter-defibrilla tor) battery depletion Start: 12-02-2023 Medicare Advantage Annual Wellness Visit Medicare Advantage Annual Wellness Visit [facility] Start: 09-10-2023 Patient referral [facility] Work Phone: Start: 08-02-2023 COVID-19 Vaccine ( season) COVID-19 Vaccine ( season) [facility] Start: 08-02-2023 Influenza vaccination Influenza Vaccine (#1) [facility] Start: 10-27-2022 [facility] Start: 08-15-2022 COVID-19 Vaccine (4 - Booster for Moderna series) COVID-19 Vaccine (4 - Booster for Moderna series) [facility] Start: 08-09-2022 Patient referral [facility] Work Phone: Start: 05-25-2022 Creatinine measurement [facility] Start: 05-25-2022 Potassium measurement Potassium Level [facility] Start: 05-25-2022 Potassium monitoring Potassium monitoring [employer] Work Phone: Start: 08-02-2021 Influenza vaccination Flu vaccine (#1) [employer] Work Phone: Start: 2020 Abdominal aortic aneurysm screening ABDOMINAL AORTIC ANEURYSM HIGH RISK SCREEN [facility] Start: 2020 Pneumococcal 65+ years Vaccine (1 of 1 - PPSV23) Pneumococcal 65+ years Vaccine (1 of 1 - PPSV23) [employer] Work Phone: Start: 01-10-2020 Lipid panel Lipid Panel [facility] Start: 05-19-2019 Annual Wellness [facility]AWV) [facility] Start: 11-01-2018 Lipid panel Lipid Panel [facility] Start: 01-08-2018 End: 01-08-2018 Appointment Appointment [facility] Work Phone: Start: 12-20-2017 End: 12-20-2017 Appointment Appointment [facility] Work Phone: Start: 09-13-2017 End: 09-13-2017 Follow Up Appt 3 months Follow Up Appt 3 months [facility] Work Phone: Start: 09-13-2017 End: 09-13-2017 Pacer Clinic [facility] Work Phone: Start: 09-13-2017 End: 09-13-2017 Patient encounter procedure [facility]ment [facility] Work Phone: Start: 09-13-2017 End: 09-13-2017 Follow Up Appt 3 months Follow Up Appt 3 months [facility] Work Phone: Start: 09-13-2017 End: 09-13-2017 Pacer Clinic [facility] Work Phone: Start: 07-16-2017 End: 07-16-2017 Patient encounter procedure Appointment [facility] Work Phone: Start: 07-03-2017 End: 07-07-2017 Follow Up Appt Other Follow Up Appt Other [facility] Work Phone: Start: 07-03-2017 End: 07-03-2017 Patient encounter [facility]ment [facility] Work Phone: Start: 07-03-2017 End: 07-07-2017 Follow Up Appt Other Follow Up Appt Other [facility] Work Phone: Start: 07-02-2017 End: 07-02-2017 Patient encounter procedure App[facility]ment [facility] Work Phone: Start: 06-19-2017 End: 06-19-2017 Esophagogastroduodenoscopy transoral diagnostic Upper gastrointestinal endoscopy [facility] Work Phone: Start: 06-19-2017 End: 06-19-2017 Follow Up Appt Other Follow Up Appt Other [facility] Work Phone: Start: 06-19-2017 End: 06-19-2017 Patient encounter procedure [facility]ment [facility] Work Phone: Start: 06-19-2017 End: 06-19-2017 Esophagogastroduodenoscopy transoral diagnostic Upper gastrointestinal endoscopy [facility] [employer] Work Phone: Start: 06-19-2017 End: 06-19-2017 Follow Up Appt Other Follow Up Appt Other [facility] [employer] Work Phone: Start: 06-14-2017 End: 06-14-2017 Follow Up Appt 3 months Follow Up Appt 3 months [facility] Work Phone: Start: 06-14-2017 End: 06-14-2017 Follow Up Appt 6 months Follow Up Appt 6 months [facility] Work Phone: Start: 06-14-2017 End: 06-14-2017 Pacer Clinic Pacer Clinic [facility] Work Phone: Start: 06-14-2017 End: 06-14-2017 PFM PFM [facility] Work Phone: Start: 06-14-2017 End: 06-14-2017 Patient encounter procedure App[facility]ment [facility] Work Phone: Start: 06-14-2017 End: 06-14-2017 Follow Up Appt 3 months Follow Up Appt 3 months [facility] Work Phone: Start: 06-14-2017 End: 06-14-2017 Follow Up Appt 6 months Follow Up Appt 6 months [facility] Work Phone: Start: 06-14-2017 End: 06-14-2017 Pacer Clinic Pacer Clinic [facility] Work Phone: Start: 06-14-2017 End: 06-14-2017 PFM PFM [facility] Work Phone: Start: 06-05-2017 End: 07-07-2017 Follow Up Appt 1 month Follow Up Appt 1 month [facility] Work Phone: Start: 06-05-2017 End: 07-07-2017 Follow Up Appt 1 month Follow Up Appt 1 month [facility] Work Phone: Start: 05-28-2017 End: 05-28-2017 Patient encounter procedure Appointment [facility] Work Phone: Start: 05-23-2017 End: 05-23-2017 Patient encounter procedure App[facility]ment [facility] Work Phone: Start: 05-15-2017 End: 05-28-2017 Follow Up Appt Other Follow Up Appt Other [facility] Work Phone: Start: 05-15-2017 End: 05-15-2017 Patient encounter procedure Appointment [facility] Work Phone: Start: 05-15-2017 End: 05-28-2017 Follow Up Appt Other Follow Up Appt Other [facility] Work Phone: Start: 05-01-2017 End: 05-01-2017 Patient encounter procedure Appointment [facility] Work Phone: Start: 04-03-2017 End: 04-03-2017 Surgery Referral Surgery Referral Lowell Otero MD, [place] Plastic Surgery, [address], [address], [place], [address] [facility] Work Phone: Start: 04-03-2017 End: 05-24-2017 Admission to same day surgery center Surgery Referral Lowell Otero MD, [facility], [address], [address], [place], [address] [facility] Work Phone: Start: 12-14-2016 End: 12-14-2016 Device Interrogation Device Interrogation [facility] Work Phone: Start: 12-14-2016 End: 06-06-2017 Follow Up Appt 3 months Follow Up Appt 3 months [facility] Work Phone: Start: 12-14-2016 End: 12-14-2016 Follow Up Appt 6 months Follow Up Appt 6 months [facility] Work Phone: Start: 12-14-2016 End: 12-14-2016 MMM MMM [facility] Work Phone: Start: 12-14-2016 End: 06-06-2017 Pacer Clinic Pacer Clinic [facility] Work Phone: Start: 12-14-2016 End: 12-14-2016 Device Interrogation Device Interrogation [facility] Work Phone: Start: 12-14-2016 End: 06-06-2017 Follow Up Appt 3 months Follow Up Appt 3 months [facility] Work Phone: Start: 12-14-2016 End: 12-14-2016 Follow Up Appt 6 months Follow Up Appt 6 months [facility] Work Phone: Start: 12-14-2016 End: 12-14-2016 MMM MMM [facility] Work Phone: Start: 12-14-2016 End: 06-06-2017 Pacer Clinic [facility] Work Phone: Start: 09-05-2016 End: 12-14-2016 Follow Up Appt 3 months Follow Up Appt 3 months [facility] Work Phone: Start: 09-05-2016 End: 09-05-2016 Follow Up Appt Other Follow Up Appt Other [facility] Work Phone: Start: 09-05-2016 End: 12-14-2016 Pacer Clinic Pac[facility] Clinic [facility] Work Phone: Start: 09-05-2016 End: 12-14-2016 Follow Up Appt 3 months Follow Up Appt 3 months [facility] Work Phone: Start: 09-05-2016 End: 09-05-2016 Follow Up Appt Other Follow Up Appt Other [facility] Work Phone: Start: 09-05-2016 End: 12-14-2016 Pacer Clinic Pac[facility] Work Phone: Start: 06-01-2016 End: 08-22-2016 Follow Up Appt 3 months Follow Up Appt 3 months [facility] Work Phone: Start: 06-01-2016 End: 06-01-2016 Follow Up Appt 6 months Follow Up Appt 6 months [facility] Work Phone: Start: 06-01-2016 End: 06-01-2016 MMM MMM [facility] Work Phone: Start: 06-01-2016 End: 06-01-2016 Nuclear stress test -Lexiscan Nuclear stress test -Lexiscan [facility] Work Phone: Start: 06-01-2016 End: 08-22-2016 Pacer Clinic Pacer Clinic [facility] Work Phone: Start: 06-01-2016 End: 06-01-2016 PFM PFM [facility] Work Phone: Start: 06-01-2016 End: 08-22-2016 Follow Up Appt 3 months Follow Up Appt 3 months [facility] Work Phone: Start: 06-01-2016 End: 06-01-2016 Follow Up Appt 6 months Follow Up Appt 6 months [facility] Work Phone: Start: 06-01-2016 End: 06-01-2016 MMM MMM [facility] Work Phone: Start: 06-01-2016 End: 06-01-2016 Nuclear stress test -Lexiscan Nuclear stress test -Lexiscan [facility] Work Phone: Start: 06-01-2016 End: 08-22-2016 Pacer Clinic Pacer Clinic [facility] Work Phone: Start: 06-01-2016 End: 06-01-2016 PFM PFM [facility] Work Phone: Start: 02-28-2016 End: 05-18-2016 Follow Up Appt 3 months Follow Up Appt 3 months [facility] Work Phone: Start: 02-28-2016 End: 05-18-2016 Pacer Clinic Pacer Clinic [facility] Work Phone: Start: 02-28-2016 End: 05-18-2016 Follow Up Appt 3 months Follow Up Appt 3 months [facility] Work Phone: Start: 02-28-2016 End: 05-18-2016 Pacer Clinic [facility] Work Phone: Start: 11-30-2015 End: 11-30-2015 Device Interrogation Device Interrogation [facility] Work Phone: Start: 11-30-2015 End: 11-30-2015 Echocardiography Echocardiogram (complete) [facility] Work Phone: Start: 11-30-2015 End: 05-18-2016 Follow Up Appt 3 months Follow Up Appt 3 months [facility] Work Phone: Start: 11-30-2015 End: 11-30-2015 Follow Up Appt 6 months Follow Up Appt 6 months [facility] Work Phone: Start: 11-30-2015 End: 11-30-2015 MMM MMM [facility] Work Phone: Start: 11-30-2015 End: 05-18-2016 Pacer Clinic Pacer Clinic [facility] Work Phone: Start: 11-30-2015 End: 11-30-2015 Device Interrogation Device Interrogation [facility] Work Phone: Start: 11-30-2015 End: 11-30-2015 Echocardiography Echocardiogram (complete) [facility] Work Phone: Start: 11-30-2015 End: 05-18-2016 Follow Up Appt 3 months Follow Up Appt 3 months [facility] Work Phone: Start: 11-30-2015 End: 11-30-2015 Follow Up Appt 6 months Follow Up Appt 6 months [facility] Work Phone: Start: 11-30-2015 End: 11-30-2015 MMM MMM [facility] Work Phone: Start: 11-30-2015 End: 05-18-2016 Pacer Clinic Pacer [facility] Work Phone: Start: 08-17-2015 End: 08-17-2015 *CBC with Differential *CBC with Differential [facility] Work Phone: Start: 08-17-2015 End: 05-18-2016 Follow Up Appt 3 months Follow Up Appt 3 months [facility] Work Phone: Start: 08-17-2015 End: 05-18-2016 Pacer Clinic Pacer Clinic [facility] Work Phone: Start: 08-17-2015 End: 08-17-2015 CBC W Auto Differential panel - Blood *CBC with Differential [facility] Work Phone: Start: 08-17-2015 End: 05-18-2016 Follow Up Appt 3 months Follow Up Appt 3 months [facility] Work Phone: Start: 08-17-2015 End: 05-18-2016 Pacer Clinic Pacer Clinic [facility] Work Phone: Start: 08-03-2015 End: 08-03-2015 Follow Up Appt 3 months Follow Up Appt 3 months [facility] Work Phone: Start: 08-03-2015 End: 08-03-2015 PFM PFM [facility] Work Phone: Start: 08-03-2015 End: 08-03-2015 Follow Up Appt 3 months Follow Up Appt 3 months [facility] Work Phone: Start: 08-03-2015 End: 08-03-2015 PFM PFM [facility] Work Phone: Start: 05-12-2015 End: 07-20-2015 Follow Up Appt 3 months Follow Up Appt 3 months [facility] Work Phone: Start: 05-12-2015 End: 07-20-2015 Pacer Clinic Pacer Clinic [facility] Work Phone: Start: 05-12-2015 End: 07-20-2015 Follow Up Appt 3 months Follow Up Appt 3 months [facility] Work Phone: Start: 05-12-2015 End: 07-20-2015 Pacer Clinic [facility] Work Phone: Start: 05-04-2015 End: 07-20-2015 *BMP *BMP [facility] Work Phone: Start: 05-04-2015 End: 07-20-2015 Follow Up Appt 3 months Follow Up Appt 3 months [facility] Work Phone: Start: 05-04-2015 End: 07-20-2015 MMM MMM [facility] Work Phone: Start: 05-04-2015 End: 07-20-2015 Basic metabolic 2000 panel - Serum or Plasma *BMP [facility] Work Phone: Start: 05-04-2015 End: 07-20-2015 Follow Up Appt 3 months Follow Up Appt 3 months [facility] Work Phone: Start: 05-04-2015 End: 07-20-2015 MMM MMM [facility] Work Phone: Start: 05-02-2015 End: 05-03-2015 *BMP *BMP [facility] Work Phone: Start: 05-02-2015 End: 05-03-2015 Basic metabolic 2000 panel - Serum or Plasma *BMP [facility] Work Phone: Start: 2015 RSV Immunization aged 60 or older (1 - 1-dose 60+ series) RSV Immunization aged 60 or older (1 - 1-dose 60+ series) [facility] Start: 03-30-2015 End: 07-20-2015 Follow Up Appt Other Follow Up Appt Other [facility] Work Phone: Start: 03-30-2015 End: 07-20-2015 Follow Up Appt Other Follow Up Appt Other [facility] Work Phone: Start: 03-16-2015 End: 03-25-2015 *BMP *BMP [facility] Work Phone: Start: 03-16-2015 End: 03-25-2015 *CBC with Differential *CBC with Differential [facility] Work Phone: Start: 03-16-2015 End: 03-25-2015 BNP *Brain Natriuretic Peptide BNP [facility] Work Phone: Start: 03-16-2015 End: 03-16-2015 Follow up Appt 3 weeks Follow up Appt 3 weeks [facility] Work Phone: Start: 03-16-2015 End: 03-16-2015 MMM MMM [facility] Work Phone: Start: 03-16-2015 End: 03-25-2015 Basic metabolic 2000 panel - Serum or Plasma *BMP [facility] Work Phone: Start: 03-16-2015 End: 03-25-2015 CBC W Auto Differential panel - Blood *CBC with Differential [facility] Work Phone: Start: 03-16-2015 End: 03-16-2015 Follow up Appt 3 weeks Follow up Appt 3 weeks [facility] Work Phone: Start: 03-16-2015 End: 03-16-2015 MMM MMM [facility] Work Phone: Start: 03-16-2015 End: 03-25-2015 Natriuretic peptide B [Mass/volume] in Blood *Brain Natriuretic Peptide BNP [facility] Work Phone: Start: 03-11-2015 End: 03-11-2015 *BMP *BMP [facility] Work Phone: Start: 03-11-2015 End: 03-11-2015 Basic metabolic 2000 panel - Serum or Plasma *BMP [facility] Work Phone: Start: 03-07-2015 End: 03-07-2015 Follow Up Appt Other Follow Up Appt Other [facility] Work Phone: Start: 03-07-2015 End: 03-07-2015 Follow Up Appt Other Follow Up Appt Other [facility] Work Phone: Start: 01-10-2015 End: 01-10-2015 *BMP *BMP [facility] Work Phone: Start: 01-10-2015 End: 01-10-2015 *CBC with Differential *CBC with Differential [facility] Work Phone: Start: 01-10-2015 End: 01-10-2015 Follow Up Appt 3 months Follow Up Appt 3 months [facility] Work Phone: Start: 01-10-2015 End: 01-10-2015 Magnesium *Magnesium [facility] Work Phone: Start: 01-10-2015 End: 01-10-2015 Pacer Clinic Pacer Clinic [facility] Work Phone: Start: 01-10-2015 End: 01-10-2015 PFM PFM [facility] Work Phone: Start: 01-10-2015 End: 01-10-2015 Thyroid stimulating hormone (TSH) *TSH [facility] Work Phone: Start: 01-10-2015 End: 01-10-2015 Basic metabolic 2000 panel - Serum or Plasma *BMP [facility] Work Phone: Start: 01-10-2015 End: 01-10-2015 CBC W Auto Differential panel - Blood *CBC with Differential [facility] Work Phone: Start: 01-10-2015 End: 01-10-2015 Follow Up Appt 3 months Follow Up Appt 3 months [facility] Work Phone: Start: 01-10-2015 End: 01-10-2015 Magnesium [Mass/volume] in Serum or Plasma *Magnesium [facility] Work Phone: Start: 01-10-2015 End: 01-10-2015 Pacer Clinic Pacer Clinic [facility] Work Phone: Start: 01-10-2015 End: 01-10-2015 PFM PFM [facility] Work Phone: Start: 01-10-2015 End: 01-10-2015 Thyrotropin [Units/volume] in Serum or Plasma *TSH [facility] Work Phone: Start: 12-03-2014 End: 01-10-2015 Follow Up Appt 3 months Follow Up Appt 3 months [facility] Work Phone: Start: 12-03-2014 End: 01-10-2015 Pacer Clinic Pacer Clinic [facility] Work Phone: Start: 12-03-2014 End: 01-10-2015 Follow Up Appt 3 months Follow Up Appt 3 months [facility] Work Phone: Start: 12-03-2014 End: 01-10-2015 Pacer Clinic Pacer Clinic [facility] Work Phone: Start: 08-19-2014 End: 01-10-2015 Follow Up Appt 3 months Follow Up Appt 3 months [facility] Work Phone: Start: 08-19-2014 End: 01-10-2015 Pacer Clinic Pacer Clinic [facility] Work Phone: Start: 08-19-2014 End: 01-10-2015 Follow Up Appt 3 months Follow Up Appt 3 months [facility] Work Phone: Start: 08-19-2014 End: 01-10-2015 Pacer Clinic Pacer Clinic [facility] Work Phone: Start: 07-16-2014 End: 07-16-2014 Ecg routine ecg w/least 12 lds w/i&r EKG (In office) [facility] Work Phone: Start: 07-16-2014 End: 07-16-2014 Follow Up Appt 6 months Follow Up Appt 6 months [facility] Work Phone: Start: 07-16-2014 End: 07-16-2014 PFM PFM [facility] Work Phone: Start: 07-16-2014 End: 07-16-2014 Ecg routine ecg w/least 12 lds w/i&r EKG (In office) [facility] Work Phone: Start: 07-16-2014 End: 07-16-2014 Follow Up Appt 6 months Follow Up Appt 6 months [facility] Work Phone: Start: 07-16-2014 End: 07-16-2014 PFM PFM [facility] Work Phone: Start: 05-14-2014 End: 01-10-2015 Follow Up Appt 3 months Follow Up Appt 3 months [facility] Work Phone: Start: 05-14-2014 End: 01-10-2015 Pacer Clinic Pacer [facility] Work Phone: Start: 05-14-2014 End: 01-10-2015 Follow Up Appt 3 months Follow Up Appt 3 months [facility] Work Phone: Start: 05-14-2014 End: 01-10-2015 Pacer Clinic Pacer Clinic [facility] Work Phone: Start: 02-25-2014 End: 03-07-2015 External Counterpulsation Therapy External Counterpulsation Therapy [address], [address], [place], [address] [facility] Work Phone: Start: 02-25-2014 End: 02-25-2014 Us abdominal real time w/image limited US Abdominal (aneurysm screening) [facility] Work Phone: Start: 02-25-2014 End: 03-07-2015 External Counterpulsation Therapy External Counterpulsation Therapy [address], [address], [place], [address] [facility] Work Phone: Start: 02-25-2014 End: 02-25-2014 Us abdominal real time w/image limited US Abdominal (aneurysm screening) [facility] Work Phone: Start: 02-05-2014 End: 01-10-2015 Follow Up Appt 3 months Follow Up Appt 3 months [facility] Work Phone: Start: 02-05-2014 End: 01-10-2015 Pacer Clinic Pacer Clinic [facility] Work Phone: Start: 02-05-2014 End: 01-10-2015 Follow Up Appt 3 months Follow Up Appt 3 months [facility] Work Phone: Start: 02-05-2014 End: 01-10-2015 Pacer Clinic Pacer Clinic [facility] Work Phone: Start: 01-07-2014 End: 01-07-2014 Follow Up Appt 6 months Follow Up Appt 6 months [facility] Work Phone: Start: 01-07-2014 End: 01-07-2014 PFM PFM [facility] Work Phone: Start: 01-07-2014 End: 01-07-2014 Follow Up Appt 6 months Follow Up Appt 6 months [facility] Work Phone: Start: 01-07-2014 End: 01-07-2014 PFM PFM [facility] Work Phone: Start: 11-06-2013 End: 01-10-2015 Cardiac Rehab Cardiac Rehab [facility] Work Phone: Start: 11-06-2013 End: 11-09-2013 Cardiovascular stress test using treadmill Treadmill stress test (no imaging) [facility] Work Phone: Start: 11-06-2013 End: 01-10-2015 Follow Up Appt 3 months Follow Up Appt 3 months [facility] Work Phone: Start: 11-06-2013 End: 01-10-2015 Pacer Clinic Pacer Clinic [facility] Work Phone: Start: 11-06-2013 End: 11-06-2013 PFM PFM [facility] Work Phone: Start: 11-06-2013 End: 01-10-2015 Cardiac Rehab Cardiac Rehab [facility] Work Phone: Start: 11-06-2013 End: 11-09-2013 Cardiovascular stress test using treadmill Treadmill stress test (no imaging) [facility] Work Phone: Start: 11-06-2013 End: 01-10-2015 Follow Up Appt 3 months Follow Up Appt 3 months [facility] Work Phone: Start: 11-06-2013 End: 01-10-2015 Pacer Clinic Pacer Clinic [facility] Work Phone: Start: 11-06-2013 End: 11-06-2013 PFM PFM [facility] Work Phone: Start: 11-01-2013 End: 01-10-2015 *Hepatic Function Panel *Hepatic Function Panel [facility] Work Phone: Start: 11-01-2013 End: 01-10-2015 Lipid panel [AGGREGATE] *Lipid Profile CC PCP [facility] Work Phone: Start: 11-01-2013 End: 01-10-2015 Hepatic function 2000 panel - Serum or Plasma *Hepatic Function Panel [facility] Work Phone: Start: 11-01-2013 End: 01-10-2015 Lipid 1996 panel - Serum or Plasma *Lipid Profile CC PCP [facility] Work Phone: Start: 10-28-2013 End: 10-28-2013 Follow Up Appt Other Follow Up Appt Other [facility] Work Phone: Start: 10-28-2013 End: 10-28-2013 Follow Up Appt Other Follow Up Appt Other [facility] Work Phone: Start: 10-16-2013 End: 10-28-2013 *BMP *BMP [facility] Work Phone: Start: 10-16-2013 End: 10-28-2013 aPTT *PTT-Partial Thromboplastin Time [facility] Work Phone: Start: 10-16-2013 End: 10-28-2013 CBC W Auto Differential panel - Blood *CBC without Diff [facility] Work Phone: Start: 10-16-2013 End: 10-28-2013 Chest x-ray X-Ray, Chest, PA & Lateral [facility] Work Phone: Start: 10-16-2013 End: 10-28-2013 Ecg routine ecg w/least 12 lds w/i&r EKG (In office) [facility] Work Phone: Start: 10-16-2013 End: 10-28-2013 INR Coag RelTime (PPP) *PT/INR [facility] Work Phone: Start: 10-16-2013 End: 10-09-2013 Left Heart Cath W/Grafts Left Heart Cath W/Grafts [facility] Work Phone: Start: 10-16-2013 End: 10-28-2013 aPTT in Platelet poor plasma by Coagulation assay *PTT-Partial Thromboplastin Time [facility] Work Phone: Start: 10-16-2013 End: 10-28-2013 Basic metabolic 2000 panel - Serum or Plasma *BMP [facility] Work Phone: Start: 10-16-2013 End: 10-28-2013 CBC W Auto Differential panel - Blood *CBC without Diff [facility] Work Phone: Start: 10-16-2013 End: 10-28-2013 Chest x-ray X-Ray, Chest, PA & Lateral [facility] Work Phone: Start: 10-16-2013 End: 10-28-2013 Ecg routine ecg w/least 12 lds w/i&r EKG (In office) [facility] Work Phone: Start: 10-16-2013 End: 10-28-2013 INR in Platelet poor plasma by Coagulation assay *PT/INR [facility] Work Phone: Start: 10-16-2013 End: 10-09-2013 Left Heart Cath W/Grafts Left Heart Cath W/Grafts [facility] Work Phone: Start: 10-07-2013 End: 10-28-2013 Follow Up Appt Other Follow Up Appt Other [facility] Work Phone: Start: 10-07-2013 End: 10-28-2013 MMM MMM [facility] Work Phone: Start: 10-07-2013 End: 10-28-2013 Follow Up Appt Other Follow Up Appt Other [facility] Work Phone: Start: 10-07-2013 End: 10-28-2013 MMM MMM [facility] Work Phone: Start: 08-26-2013 End: 10-28-2013 Follow Up Appt 3 months Follow Up Appt 3 months [facility] Work Phone: Start: 08-26-2013 End: 10-28-2013 Pacer Clinic Pacer Clinic [facility] Work Phone: Start: 08-26-2013 End: 10-28-2013 Follow Up Appt 3 months Follow Up Appt 3 months [facility] Work Phone: Start: 08-26-2013 End: 10-28-2013 Pacer Clinic Pacer Clinic [facility] Work Phone: Start: 08-06-2013 End: 08-06-2013 Follow Up Appt Other Follow Up Appt Other [facility] Work Phone: Start: 08-06-2013 End: 08-06-2013 Follow Up Appt Other Follow Up Appt Other [facility] Work Phone: Start: 08-05-2013 End: 08-06-2013 Follow Up Appt 3 months Follow Up Appt 3 months [facility] Work Phone: Start: 08-05-2013 End: 08-06-2013 Pacer Clinic Pacer Clinic [facility] Work Phone: Start: 08-05-2013 End: 08-06-2013 Follow Up Appt 3 months Follow Up Appt 3 months [facility] Work Phone: Start: 08-05-2013 End: 08-06-2013 Pacer Clinic Pacer Clinic [facility] Work Phone: Start: 07-01-2013 End: 07-24-2013 Follow Up Appt 1 month Follow Up Appt 1 month [facility] Work Phone: Start: 07-01-2013 End: 07-24-2013 MMM MMM [facility] Work Phone: Start: 07-01-2013 End: 07-24-2013 Follow Up Appt 1 month Follow Up Appt 1 month [facility] Work Phone: Start: 07-01-2013 End: 07-24-2013 MMM MMM [facility] Work Phone: Start: 05-05-2013 End: 06-03-2013 Follow Up Appt 3 months Follow Up Appt 3 months [facility] Work Phone: Start: 05-05-2013 End: 06-03-2013 Pacer Clinic Pacer Clinic [facility] Work Phone: Start: 05-05-2013 End: 06-03-2013 Follow Up Appt 3 months Follow Up Appt 3 months [facility] Work Phone: Start: 05-05-2013 End: 06-03-2013 Pacer Clinic Pacer Clinic [facility] Work Phone: Start: 04-22-2013 End: 05-08-2013 *Hepatic Function Panel *Hepatic Function Panel [facility] Work Phone: Start: 04-22-2013 End: 05-08-2013 Lipid panel [AGGREGATE] *Lipid Profile [facility] Work Phone: Start: 04-22-2013 End: 05-08-2013 Hepatic function 2000 panel - Serum or Plasma *Hepatic Function Panel [facility] Work Phone: Start: 04-22-2013 End: [...] w/least 12 lds w/i&r EKG (In office) [facility] Work Phone: Start: 04-20-2013 End: 04-21-2013 Echocardiography Echocardiogram (complete) [facility] Work Phone: Start: 04-20-2013 End: 04-21-2013 Follow Up Appt 6 months Follow Up Appt 6 months [facility] Work Phone: Start: 04-20-2013 End: 04-21-2013 PFM PFM [facility] Work Phone: Start: 10-30-2012 End: 04-21-2013 Follow Up Appt 6 months Follow Up Appt 6 months [facility] Work Phone: Start: 10-30-2012 End: 04-21-2013 Follow Up Appt 6 months Follow Up Appt 6 months [facility] Work Phone: Start: 09-03-2012 End: 04-21-2013 *BMP *BMP [facility] Work Phone: Start: 09-03-2012 End: 04-21-2013 *Hepatic Function Panel *Hepatic Function Panel [facility] Work Phone: Start: 09-03-2012 End: 04-21-2013 Lipid panel [AGGREGATE] *Lipid Profile [facility] Work Phone: Start: 09-03-2012 End: 04-21-2013 Magnesium *Magnesium [facility] Work Phone: Start: 09-03-2012 End: 04-21-2013 Basic metabolic 2000 panel - Serum or Plasma *BMP [facility] Work Phone: Start: 09-03-2012 End: 04-21-2013 Hepatic function 2000 panel - Serum or Plasma *Hepatic Function Panel [facility] Work Phone: Start: 09-03-2012 End: 04-21-2013 Lipid 1996 panel - Serum or Plasma *Lipid Profile [facility] Work Phone: Start: 09-03-2012 End: 04-21-2013 Magnesium [Mass/volume] in Serum or Plasma *Magnesium [facility] Work Phone: Start: 04-17-2012 End: 04-18-2012 Tube Handler Tube Handler Sarah [facility], [address] [place] [address], [id number] [facility] Work Phone: Start: 04-17-2012 End: 04-17-2012 Follow Up Appt 6 months Follow Up Appt 6 months [facility] Work Phone: Start: 04-17-2012 End: 04-17-2012 Follow Up Appt 6 months Follow Up Appt 6 months [facility] Work Phone: Start: 04-17-2012 End: 04-18-2012 Patient encounter procedure Tube Handler [place] [facility], [address] [place] [address], [id number] [facility] Work Phone: Start: 03-05-2012 End: 04-09-2012 *Hepatic Function Panel *Hepatic Function Panel [facility] Work Phone: Start: 03-05-2012 End: 04-09-2012 Lipid panel [AGGREGATE] *Lipid Profile [facility] Work Phone: Start: 03-05-2012 End: 04-09-2012 Hepatic function 2000 panel - Serum or Plasma *Hepatic Function Panel [facility] Work Phone: Start: 03-05-2012 End: 04-09-2012 Lipid 1996 panel - Serum or Plasma *Lipid Profile [facility] Work Phone: Start: 12-10-2011 End: 12-10-2011 Follow Up Appt Other Follow Up Appt Other [facility] Work Phone: Start: 12-10-2011 End: 12-10-2011 Follow Up Appt Other Follow Up Appt Other [facility] Work Phone: Start: 08-28-2011 Pneumococcal Vaccine: 65+ Years (2 - PCV) Pneumococcal Vaccine: 65+ Years (2 - PCV) [facility] Start: 08-28-2011 Pneumococcal Vaccine: 65+ Years (2 of 2 - PCV) Pneumococcal Vaccine: 65+ Years (2 of 2 - PCV) [facility] Start: 2005 Prostate specific antigen measurement PROSTATE CANCER SCREENING DISCUSSION [facility] Start: 2005 Screening for malignant neoplasm of colon Colon cancer screen colonoscopy [facility] Work Phone: Start: 2005 Shingles Vaccine (1 of 2) Shingles Vaccine (1 of 2) [facility] Work Phone: Start: 2000 Screening for malignant neoplasm of colon COLORECTAL CANCER SCREENING DISCUSSION [facility] Start: 1995 Diabetes screen Diabetes screen [facility] Work Phone: Start: 1995 Lipid panel LIPID SCREENING [facility] Start: 1973 Diabetes mellitus screening Diabetes Screening [facility] Start: 1973 Hepatitis C screening Hepatitis C Screening [facility] Start: 1967 Depression Screening Depression Screening [facility] Start: 1965 Lipid panel Lipid screen [facility] Work Phone: Start: 1955 Abdominal aortic aneurysm screening AAA screen [facility] Work Phone: Start: 1955 Echocardiography Echocardiogram [facility] Start: 1955 Hepatitis B Vaccines (1 of 3 - 3-dose series) Hepatitis B Vaccines (1 of 3 - 3-dose series) [facility] Start: 1955 Hepatitis C screening [facility] Start: 1955 Medicare Advantage Annual Wellness Visit (AWV) Medicare Advantage Annual Wellness Visit (AWV) [facility] Start: 1955 Screening for malignant neoplasm of colon [facility] Alanine aminotransfe rase [Enzymatic activity/volume] in Serum or Plasma [facility] Aspartate aminotrans ferase [Enzymatic activity/volume] in Serum or Plasma [facility] AUTOPAP AutoPAP Respirat ory Care Routine QHS until discontinued starting 05/25/2021 [facility] Work Phone: Comment on above: QHS until discontinued starting 05/25/20 21 Comprehensive metabo lic 2000 panel - Serum or Plasma [facility] Electrophysiology study EP PROCE DURE - EPS/ABLATION/DEVICE Electrophysiology Routine ICD (implantable cardioverter-defibrill ator) battery depletion 01/06/2024 1:36 PM EST [facility] End: 05-24-2021 FL Greater Than 1 Hour FL Greater Than 1 Hour Imaging Routine Once for 1 Occurrences starting 05/24/2021 until 05/24/2021 [facility] Work Phone: Comment on above: Once for 1 Occurrences starting 05/24/20 21 until 05/24/2021 FL Greater Than 1 Hour FL Greate r Than 1 Hour Imaging Routine 05/24/2021 2:20 PM EDT [facility] Work Phone: End: 01-06-2024 Interrogation of cardiac pacemaker PACEMAKER/ICD INTERROGATION Cardiac Services Routine One Time for 1 Occurrences starting 01/06/2024 until 01/06/2024 [facility] Comment on above: One Time for 1 Occurrences starting 04/2024 until 01/06/2024 Lipid 1995 panel - S silvana or Plasma [facility] Lipid 1995 panel - S silvana or Plasma [facility] NM Heart Views W str ess and W radionuclide IV [facility] Oxygen therapy [[facility] Data Set] Initiate Oxygen Therapy Protocol Respiratory Care Routine Daily until discontinued starting 05/24/2021 [facility] Work Phone: Comment on above: Daily until discontinued starting 2020 Patient Education [place] [facility] Work Phone: Patient referral [facility] Work Phone: Troponin T.cardiac [Mass/volume] in Serum or Plasma by High sensitivity method [facility] US Heart [facility] VL DUP LOWER EXTREMI TY VENOUS BILATERAL VL DUP LOWER EXTREMITY VENOUS BILATERAL Imaging Routine Every Mo,Th until discontinued starting 05/29/2021, 1 completed [facility] Work Phone: Comment on above: Every Mo,Th until discontinued starting 05/29/2021, 1 completed Immunizations Immunization Date Immunization Notes Care Provider [facility] 09-04-2022 influenza virus vaccine, unspecified formulation Kel Nielsen MD Work Phone: [facility] 01-17-2021 Covid (Moderna) Dr. Speedy mckeon Work Phone: [facility] 12-21-2020 Covid (Moderna) Dr. Speedy mckeon Work Phone: [facility] 10-02-[address] Speedy Boswell Work Phone: [facility] 05-27-2014 tetanus toxoid, reduced diphtheria toxoid, and acellular pertussis vaccine, adsorbed Dr. Speedy Boswlel Work Phone: [facility] 09-01-[address] Speedy Boswell Work Phone: [facility] 02-13-[address] Veronica Boswell Work Phone: [facility] Work Phone: 02-13-2005 pneumococcal vaccine , unspecified formulation Dr. Speedy Boswell Work Phone: [facility] Payers Date Payer Category Payer Self-pay [id number] 2023 Medicare [id number] 2023 Unknown [id number] 2022 Medicare [id number] 2021 Medicare [id number] 2020 Medicare [id number] 2020 Unknown [id number] 2010 Private Health Insurance [id number] 1955 Unknown [id number] 2.16.840.1.333561.3.579.2.5 94 1955 Unknown [id number] 2.16.840.1.295112.3.579.2.5 94 1955 Unknown [id number] 2.16.840.1.350304.3.579.2.5 94 1955 Unknown [id number] 2.16.840.1.485197.3.579.2.5 94 1955 Unknown [id number] 2.16.840.1.965857.3.579.2.5 Medicare [id number] Private Health Insurance [facility] [id number] Unknown [id number] 2.16.840.1.488537.3.579.2.4 62 Unknown [id number] 2.16.840.1.848837.3.579.2.4 62 Unknown [id number] 2.16.840.1.859231.3.579.2.4 62 Unknown [id number] 2.16.840.1.031986.3.579.2.4 62 Unknown [id number] 2.16.840.1.243793.3.579.2.4 62 Unknown [id number] 2.16.840.1.831384.3.579.2.4 62 Unknown [id number] 2.16.840.1.243679.3.579.2.4 62 Unknown [id number] 2.16.840.1.023121.3.579.2.4 62 Unknown [id number] 2.16.840.1.386090.3.579.2.4 62 Unknown [id number] 2.16.840.1.591246.3.579.2.4 62 Unknown [id number] 2.16.840.1.935426.3.579.2.4 62 Unknown [id number] 2.16.840.1.198893.3.579.2.4 62 Unknown [id number] 2.16.840.1.024127.3.579.2.4 62 Unknown [id number] 2.16.840.1.408541.3.579.2.4 62 Unknown [id number] 2.16.840.1.642530.3.579.2.4 62 Unknown [id number] 2.16.840.1.070285.3.579.2.4 62 Unknown [id number] 2.16.840.1.310070.3.579.2.4 62 Unknown [id number] 2.16.840.1.139027.3.579.2.4 62 Unknown [id number] 2.16.840.1.160664.3.579.2.4 62 Unknown [id number] 2.16.840.1.891222.3.579.2.4 62 Unknown [id number] 2.16.840.1.643330.3.579.2.4 62 Social History Date Type Detail Facility Start: 05-25-2021 End: 05-09-2025 Tobacco smoking status [facility] Former smoker [facility] Work Phone: End: 12-02-1980 History of tobacco use Current smoker [facility] End: 12-02-1980 History of tobacco use Cigarette Smoker [facility] Start: 05-25-2021 End: 02-11-2023 Cigarettes smoked current (pack per day) - Reported [facility] Work Phone: Start: 05-25-2021 End: 02-11-2023 Tobacco use and exposure Current [facility] History of tobacco use Chews Tobacco [facility] Start: 05-25-2021 End: 02-11-2023 Alcohol intake Current drinker of alcohol (finding) [facility] Work Phone: Start: 05-04-2019 Alcohol Comment OCCAS BEER [facility] Work Phone: Start: 1955 Sex Assigned At Not on file [facility] Work Phone: Start: 02-01-2023 End: 08-26-2023 Exposure to SARS-CoV-2 (event) Not sure [facility] Start: 02-05-2022 End: 10-30-2023 Tobacco smoking status NHIS Unknown if ever smoked [facility] Start: 02-18-2021 None [facility] Start: 02-18-2021 Alone [facility] Start: 04-06-2021 Non-smoker [facility] Start: 1955 Sex Assigned At Male [facility] Start: 03-18-2015 End: 08-26-2023 Tobacco use panel [facility] Start: 02-04-2023 Gender identity Identifies as male gender (finding) [facility] Start: 02-04-2023 Sexual orientation Heterosexual (fin sherita) [facility] Medical Equipment Procedure Code Equipment Code [...] FDA Star t: 08-05-2019 Defibrillator Cr d [id number] 40j [id number] Fortify Asr Parylene 2 - [id number] Start: 01-06-2024 Lead Pacing 52cm 6fr Endocardium Tendril Sts Bipolar Active - [id number] Start: 01-06-2024 SUTURE,2 FIBERLINK FDA Start: [...] STENT, URETERAL 7X26 FDA Star t: 08-05-2019 Mental Status Date Assessment Result Facility 05-09-2025 Cognitive function Voice/Name [facility] Work Phone: Clinical Notes 08-02-2010 to 05-12-2025 Note Date & Type Note Facility 05-12-2025 Radiology Diagnostic study note [facility] Imaging Services [address] [place] [address] CTA Chest W/WO Contrast MR#: [id number] Acct: [id number] Name: ALBIN ISSA Rep #: [id number] : 1955 M 70 From: Madiha Kirk MD PCP: Dr. Speedy Boswell MD Status: REG C Study:CTA Chest W/WO Contrast Date of Exam: 05/12/25 Exam# [id number] Ordering Dr: Speedy Boswell MD PROCEDURE: CTA CHEST W/WO CONTRAST 05/12/2025 REASON FOR EXAM: Chest pain TECHNIQUE: CTA axial imaging of the chest with intravenous contrast. Multiplanar and multisequence images were obtained. PATIENT PREPARATION: Per protocol CONTRAST: 100 mL of Isovue 370 One or more dose reduction techniques were used (e.g., Automated exposure control, adjustment of the mA and/or kV according to patient size, use of iterative reconstruction technique). RADIATION DOSE SUMMARY: DLP: 809 mGycm COMPARISON: None FINDINGS: PULMONARY ARTERIES: Limited evaluation due to motion artifact and contrast bolus/timing. Evaluation of segmental and subsegmental branches are incomplete due to this limitation. No acute pulmonary emboli within the main or lobar branches. LUNGS AND PLEURA: Bibasilar subsegmental atelectasis. No focal consolidations. No definite pulmonary edema. No mass or nodule. No pleural effusion. No pneumothorax. MEDIASTINUM: No lymphadenopathy or mass. Mild cardiomegaly. Extensive coronary atherosclerosis. The aorta shows no acute findings. The pulmonary trunk, and branches of the vessels in the mediastinum are within normal limits. SUPRACLAVICULAR AND AXILLARY: No abnormalities seen in these regions. No mass or significant lymphadenopathy. UPPER ABDOMEN: The visualized upper abdomen is unremarkable. BONES AND SOFT TISSUES: The ribs are unremarkable. Median sternotomy wires. The visualized spine shows no significant acute findings. No focal bony mass lesions noted. The subcutaneous soft tissues are unremarkable. Left chest pacer. CT/CTA Chest W/WO Contrast IMPRESSION: Limited evaluation due to motion artifact and contrast bolus/timing. Evaluation of segmental and subsegmental branches are incomplete due to this limitation. No acute pulmonary emboli within the main or lobar branches. No focal consolidations. Reading Location: [id number] CC: Dr. Speedy Boswell MD ~ [facility] Offsider: Signed [facility] 05-09-2025 Radiology Diagnostic study note [facility] Imaging Services [address] [place] [address] Chest PA and Lateral MR#: [id number] Acct: [id number] Name: ALBIN ISSA Rep #: [id number] : 1955 M 70 From: Sherif Kolb MD PCP: Dr. Speedy Boswell MD Status: REG E R Study:Chest PA and Lateral Date of Exam: 05/09/25 Exam# [id number] Ordering Dr: Kenneth Redmond DO PROCEDURE: CHEST PA AND LATERAL 05/09/2025 REASON FOR EXAM: CHEST PAIN TECHNIQUE: Frontal and lateral views of the chest. COMPARISON: 10/27/2022. FINDINGS: AICD is in good position. Unremarkable median sternotomy wires. Unchanged mild central pulmonary venous congestion. There is no demonstrated pleural abnormality. Enlarged cardiac silhouette. Normal mediastinum and keke. Normal visualized pulmonary arteries. Atheromatous plaques of the visualized aortic arch and descending thoracic aorta. Diffuse spondylosis of the visualized thoracic spine. Normal visualized ribs, clavicles. Degenerative joint disease. There is no demonstrated abnormality of the visualized soft tissue structures ofthe upper abdomen. RAD/Chest PA and Lateral IMPRESSION: Unchanged cardiomegaly. Unchanged mild central pulmonary venous congestion. Reading Location: [place] [address] CC: Dr. Speedy Boswell MD; Dr. Kenneth Redmond, DO ~ [facility] Off[facility]ider: Signed [facility] 05-03-2025 Evaluation note Diagnosis Onset Date Resolution CAD (coronary artery disease) chronic May 03, 2025 2:00pm Essential hypertension chronic May 03, 2025 2:00pm ICD (implantable cardioverter-defibri llator) in place August, chronic May 03, 2025 2:00pm Ischemic cardiomyopathy October, chronic May 03, 2025 2:00pm Mixed hyperlipidemia chronic May 03, 2025 2:00pm Obesity (BMI 30-39.9) chronic May 03, 2025 2:00pm [place] [employer] Work Phone: 1(771) 589-425806-02-2025 [facility] [address] [place] [address] OFFICE VISIT Date of Service: 05/03/25 MR#: [id number] Acct: [id number] Name: ALBIN ISSA Rep #: [id number] : 1955 Provider: Dr. Fernando Villagomez MD Age/Sex: 70/M Location: [facility] Status: Signed HPI HPI History of Present Illness Details: This gentleman with history of coronary artery disease status post CABG, status post MC to the LAD, ischemic cardiomyopathy, status post ICD placement, hypertension, dyslipidemia and obesity is herefor follow-up visit. Denies any chest pains or [...] without angina pectoris Atherosclerotic heart disease of igiugig coronary artery without angina pectoris Automatic implantable [...] epicondylitis of left elbow Left elbow pain roasterman use of drug Lymphedema of Right Leg [...] apical infarct. There is mild global hypokinesis. [place] is dyskinetic. The reported LVEF is 46%. [...] 3. Left main coronary artery: A. Proximal igiugig band without angiographically significant appearing disease 4. [...] the LAD receives predominant flow via the igiugig system 8. Free SARIAH arising from the [...] Artery/Lesion type: unspecified vessel or lesion type Inupiat vs. transplanted heart: unspecified whether igiugig or transplanted heart Associated angina: angina presence unspecified Qualified Code(s): I25.10 - Atherosclerotic heart disease of igiugig coronary artery without angina pectoris Plan: Status post CABG. history of percutaneous intervention to the LAD. Check Lexiscan stress Myoview toevaluate for silent ischemia. Aspirin. Clopidogrel. Beta-blockers. Nitrates. [...] angina presence unspecified, unspecified vessel or lesion type,unspecified whether igiugig or transplanted heart I25.10 Coronary Disease-Associated Artery/Lesion type: unspecified vessel or lesion type Inupiat vs. transplanted heart: unspecified whether igiugig or transplanted heart Associated angina: angina presence unspecified Ischemic cardiomyopathy I25.5 ICD (implantable cardioverter-defibrillator) in place Z95.810 Mixed hyperlipidemia E78.2 Essential hypertension I10 Obesity (BMI 30-39.9) E66.9 Coding Level of Care Code Off vis,est,level 4 Diagnoses Atherosclerosis of coronary artery, angina presence unspecified, unspecified vessel or lesion type,unspecified whether igiugig or transplanted heart I25.10 Coronary Disease-Associated Artery/Lesion type: unspecified vessel or lesion type Inupiat vs. transplanted heart: unspecified whether igiugig or transplanted heart Associated angina: angina presence unspecified Ischemic cardiomyopathy I25.5 ICD (implantable cardioverter-defibrillator) in place Z95.810 Mixed hyperlipidemia E78.2 Essential hypertension I10 Obesity (BMI 30-39.9) E66.9 Clinical Quality Measures Falls Risk Screening/Assistive Devices Have you fallen in the past year?: No Cardiac Ejection fraction %: 40 05/03/25 1424 MD> Date _ Delilah Villagomez MD Cosigner Signature: Date (if applicable) CC: Dr. Speedy Boswell MD ~ [facility]06-02-2025 Progress note Author Delilah Villagomez [facility] Note Date/Time May 03, 2025 2:24p m [facility] [place] [facility] [address] [place], [place] [address] OFFICE VISIT Date of Service: 05/03/25 MR#: [id number] Acct: [id number] Name: ALBIN ISSA Rep #: [id number] : 1955 Provider: Dr. Fernando Villagomez MD Age/Sex: 70/M Location: [facility] Status: Signed HPI HPI History of [...] without angina pectoris Atherosclerotic heart disease of igiugig coronary artery without angina pectoris Automatic implantable [...] epicondylitis of left elbow Left elbow pain roasterman use of drug Lymphedema of Right Leg [...] apical infarct. There is mild global hypokinesis. [place] is dyskinetic. The reported LVEF is 46%. [...] 3. Left main coronary artery: A. Proximal igiugig band without angiographically significant appearing disease 4. [...] the LAD receives predominant flow via the igiugig system 8. Free SARIAH arising from the [...] Artery/Lesion type: unspecified vessel or lesion type Inupiat vs. transplanted heart: unspecified whether igiugig or transplanted heart Associated angina: angina presence unspecified Qualified Code(s): I25.10 - Atherosclerotic heart disease of igiugig coronary artery without angina pectoris Plan: Status [...] unspecified vessel or lesion type, unspecified whether igiugig or transplanted heart I25.10 Coronary Disease-Associated Artery/Lesion type: unspecified vessel or lesion type Inupiat vs. transplanted heart: unspecified whether igiugig or transplanted heart Associated angina: angina presence unspecified Ischemic cardiomyopathy I25.5 ICD (implantable cardioverter-defibrillator) in place Z95.810 Mixed hyperlipidemia E78.2 Essential hypertension I10 Obesity (BMI 30-39.9) E66.9 Coding Level of Care Code Off vis,est,level 4 Diagnoses Atherosclerosis of coronary artery, angina presence unspecified, unspecified vessel or lesion type, unspecified whether igiugig or transplanted heart I25.10 Coronary Disease-Associated Artery/Lesion type: unspecified vessel or lesion type Inupiat vs. transplanted heart: unspecified whether igiugig or transplanted heart Associated angina: angina presence unspecified Ischemic cardiomyopathy I25.5 ICD (implantable cardioverter-defibrillator) in place Z95.810 Mixed hyperlipidemia E78.2 Essential hypertension I10 Obesity (BMI 30-39.9) E66.9 Clinical Quality Measures Falls Risk Screening/Assistive Devices Have you fallen in the past year?: No Cardiac Ejection fraction %: 40 05/03/25 1424 <Electronically signed by Delilah Villagomez MD> Date _ Delilah Villagomez MD Cosign Signature: Date (if applicable) CC: Dr. Speedy Boswell MD ~ [place] [employer] Work Phone: 1(737) 825-786912-18-2024 [facility] Medical Records Department [address] [place] [address] History Physical Exam 11/18/24 0717 MR#: [id number] Acct: [id number] Name: ALBIN ISSA Rep #: [id number] : 1955 69 From: Ravi Holder MD PCP: Dr. Speedy Boswell MD Status:REG [facility] Location: [address] - General General Date of Service: 11/18/24 [...] treated, plan to do laser of stones. [facility] Medical History (Updated 11/05/24 @ 15:21 by [...] (gastroesophageal reflux disease) Atherosclerotic heart disease of igiugig coronary artery without angina pectoris Shortness of breath History of 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 roasterman use of drug Ischemic cardiomyopathy ( 10/30/23) [...] 81 mg chewable tablet 81 mg PO [facility] Heart health 06/09/17 06/10/24 History gabapentin 300 [...] implantable cardiac defibrillator (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 [facility]04-29-2024 History of Present illness Narrative* Kel Nielsen MD - 03/30/2024 2:00 PM EDT Images from the original note were not included. [facility] [address] [facility] [address] Dept: [phone] Dept Chief Complaint Patient presents with Follow-up [...] prior to signing but minor errors in oyster picker may have occurred. documented in this [facility]04-29-2024 Instructions* Patient Instructions* Kel Nielsen MD - [...] call theoffice as soon as possible at [phone] documented in this [facility]02-06-2024 Hospital course Narrative* SHEILA Hilton - 01/07/2024 8:06 AM EST Discharge Summary Name: Albin Issa Age: 68 y.o. Birthday: 1955 Admit Date: 01/06/2024 7:01 AM Discharge Date: 01/07/2024 Discharge Time: 0800 Discharge Unit: [facility] 36 Admission Information Admitting Physician: David Ramirez MD Discharge Information Discharge Provider: Rosio Douglass CNP Problem List Active Hospital Problems Diagnosis Pacemaker lead malfunction Resolved Hospital Problems No resolved problems to display. Brief Summary of Hospital Course for Discharge Summary: Albin Issa is a 68 y.o. male with ICM s/p [place] DC ICD, CAD s/p [place] 2004, s/p CABG 2004, s/p right AKA amputation, HLD. He was evaluated in EP clinic on 11/21/2023 for consultation. He reported occasional dyspnea on exertion. Upon device evaluation on 11/21/2023, it revealed atrial lead noise and battery at BALANCE WHEEL HAND FILER. On 11/21/2023, he underwent a venogram revealing [...] s/p [place] DC ICD, CAD s/p [place] 2004, s/p CABG 2004, s/p right AKA amputation, HLD.He was evaluated in EP clinic on 11/21/2023 for consultation. He reported occasional dyspnea on exertion. Upon device evaluation on 11/21/2023, it revealed atrial lead noise and battery at BALANCE WHEEL HAND FILER. He underwent successful placement of additional RA lead. Device generator exchanged. Excellent lead parameters. IV Vancomycin is utilized because: Physician/ELECTRONICS ASSEMBLER/PA or pharmacist documentation of increased MRSA rate, [...] No follow-up provider specified. [facility] Discharge instructions* Discharge Instr - [...] 4 grams. * Discharge Instr - Notify* SHEILA Hilton - 01/07/2024 7:56 AM EST [...] Where can you learn more? Go to https://www.healthwise.net/osumychart. * Discharge Instr - Wound Care* SHEILA [...] skin during body movement. [facility] NoteIMPRESSION: Limited evaluation. No acute pulmonary finding. Cardiomegaly. RADIOLOGY 01-06-2024 History and physical note* SHEILA Hilton - 01/06/2024 7:13 AM EST Images from the original note were not included. Chief Complaint Dyspnea on exertion HPI Albin Issa is a 68 y.o. male with ICM s/p [employer] DC ICD, CAD s/p [place] 2004, s/p CABG 2004, s/p right AKA amputation, HLD. He was evaluated in EP clinic on 11/21/2023 for consultation. He reported occasional dyspnea on exertion. Upon device evaluation on 11/21/2023, it revealed atrial lead noise and battery at BALANCE WHEEL HAND FILER. On 11/21/2023, he underwent a venogram revealing [...] history on file. PCP Speedy COCHRAN MD: [facility] Anticoagulation: none Previous antiarrythmic medications: none Prior Cardiac testing: STRESS TEST (OUTSIDE) (Final) 09/24/2023 4. Area of apical infarct. No reversible ischemia. 5. The gated Cardiolite study reports an LVEF of 46% ECHOCARDIOGRAM (OUTSIDE) 09/24/2023 DEVICE EVALUATION 11/21/2023 Full evaluation of the device shows that RA and RV capture and sensing thresholds and impedance measurements are appropriate. AP 41%. CLOTH SHEARER 7.4%. Device is programmed DDD at 60 bpm. Since last evaluation 09/10/2023, counters reveal no arrhythmia events. Since 11/10/2023, there have been 48 atrial noise events noted. Patient explains that this has been a current issue and due to battery status at BALANCE WHEEL HAND FILER, patient is here at [facility] for evaluation of new device and atrial lead extractionand replacement. Isometrics completed, and able to reproduce noise on the atrial lead. The battery status at BALANCE WHEEL HAND FILER with voltage of 2.45V (JESSICA is 2.45V). Changes made to the device today: None. All findings given to Dr Ramirez and EP fellow. Patient follows at [facility]. Addendum: per order of Dr [...] and capping of existing lead. -Arrived in R -NP since 190 -OK to proceed pending lab [...] as addended by me. David Ramirez MD01/06/2024 [facility]02[facility] History and physical note* Rosio Douglass APRN-SOCIAL SCIENCE PROFESSOR - 01/06/2024 7:13 AM EST Images from the original note were not included. Chief Complaint Dyspnea on exertion HPI Albin Issa is a 68 y.o. male with ICM s/p [place] ICD, CAD s/p [place] 2004, s/p CABG 2004, s/p right AKA amputation, HLD. He was evaluated in EP clinic on 11/21/2023 for consultation. He reported occasional dyspnea on exertion. Upon device evaluation on 11/21/2023, it revealed atrial lead noise and battery at BALANCE WHEEL HAND FILER. On 11/21/2023, he underwent a venogram revealing [...] history on file. PCP Speedy COCHRAN MD: [facility] Anticoagulation: none Previous antiarrythmic medications: none Prior Cardiac testing: STRESS TEST (OUTSIDE) (Final) 09/24/2023 4. Area of apical infarct. No reversible ischemia. 5. The gated Cardiolite study reports an LVEF of 46% ECHOCARDIOGRAM (OUTSIDE) 09/24/2023 DEVICE EVALUATION 11/21/2023 Full evaluation of the device shows that RA and RV capture and sensing thresholds and impedance measurements are appropriate. AP 41%. CLOTH SHEARER 7.4%. Device is programmed DDD at 60 bpm. Since last evaluation 09/10/2023, counters reveal no arrhythmia events. Since 11/10/2023, there have been 48 atrial noise events noted. Patient explains that this has been a current issue and due to battery status at BALANCE WHEEL HAND FILER, patient is here at [facility] for evaluation of new device and atrial lead extractionand replacement. Isometrics completed, and able to reproduce noise on the atrial lead. The battery status at BALANCE WHEEL HAND FILER with voltage of 2.45V (JESSICA is 2.45V). Changes made to the device today: None. All findings given to Dr Ramirez and EP fellow. Patient follows at [facility]. Addendum: per order of Dr [...] and capping of existing lead. -Arrived in [facility] since 1899 -OK to proceed pending [...] me. David Ramirez MD01/06/2024 [facility] History of Present illness Narrative* Kel Nielsen MD - 08/26/2023 3:15 PM EDT Images from the original note were not included. [facility] [address] [place] [address] Dept: [phone] Dept Chief Complaint Patient presents with Follow-up [...] prior to signing but minor errors in oyster picker may have occurred. documented in this [facility]09-25-2023 Instructions* Patient Instructions* Kel Nielsen MD - [...] call theoffice as soon as possible at [phone] documented in this [facility]03-13-2023 History of Present illness Narrative* Kel Nielsen MD - 02/11/2023 3:20 PM EDT Images from the original note were not included. [facility] [address] [facility] [address] Dept: [phone] Dept Chief Complaint Patient presents with Injection [...] prior to signing but minor errors in oyster picker may have occurred. documented in this [facility]03-13-2023 Instructions* Patient Instructions* Kel Nielsen MD - [...] call theoffice as soon as possible at [phone] documented in this [facility]07-01-2021 History of Present illness Narrative* Kenan Jacobsen RN - 06/01/2021 1:16 AM EDT Pt discharged to [place] manner via [place] on a cot. Pt verified to have all belongings and IV removed. * Agnieszka Longoria RCP - 05/31/2021 10:[address] [facility] Respiratory Care Department Progress Note Patient [...] Longoria RCP - 05/30/2021 9:[address] [facility] Respiratory Care Department Progress Note Patient [...] be monitored and followed by the diet x ray technician. * Sd Moreno PA-C - 05/29/2021 [...] 05/29/2021 3:12 PM EDT Physical Therapy Facility/Department: [facility] Daily Treatment Note NAME: Albin Issa [...] 10 reps G-Code OutComes Score AM-PAC Score [facility] Inpatient Mobility Raw Score : 8 (05/29/211513) [...] used during session* Arabella Dai PTA * Rfay Gloria MD - 05/29/2021 12:00 PM EDT [...] off at this time. Please page resident nonfarm animal caretaker with any questions or concerns. Rafy Gloria MD Orthopaedic Surgery PGY-1 *[phone] * Hamilton Mckinnon APRN - NP - [...] happened the patient was bending down to pick pulling machine tender a delivery box when his Rolatorgot away [...] MARISELA Balderrama NP 40 mg at 05/27/21 1754 enoxaparin (LOVENOX) injection 30 mg 30 mg Subcutaneous BID MARISELA Toth CNP 30 mg at 05/27/212008 atorvastatin (LIPITOR) tablet 40 mg 40 mg Oral Nightly Sd Moreno PA-C 40 mg at 05/27/212007 buPROPion (WELLBUTRIN SR) extended release tablet 150 mg 150 mg Oral BID Sd Moreno PA-C 150 mgat 05/27/212008 carvedilol (COREG) tablet 3.125 mg 3.125 mg Oral BID JANICE Del CidC 3.125 mg at 05/27/21 1754 clopidogrel (PLAVIX) tablet 75 mg 75 mg Oral Daily MIKA Del Cid-C 75 mg at 05/27/2114 escitalopram (LEXAPRO) tablet 20 mg 20 mg Oral Daily MIKA Del Cid-C 20 mg at 05/27/2114 gabapentin (NEURONTIN) capsule 300 mg 300 mg Oral Nightly MIKA Del Cid-C 300 mg at 05/27/212008 isosorbide mononitrate (IMDUR) extended release tablet 60 mg 60 mg Oral BID JANICE Del CidC 60 mg at 05/27/212008 cetirizine (ZYRTEC) tablet 10 mg 10 mg Oral Daily MIKA Del Cid-C 10 mg at 05/27/2114 [Held by provider] meloxicam (MOBIC) tablet 15 mg 15 mg Oral Daily JANICE Del CidC niacin (NIASPAN) extended release tablet 1,000 mg 1,000 mg Oral Nightly JANICE Del CidC 1,000 mg at 05/27/212008 potassium chloride (KLOR-CON M) extended release tablet 40 mEq 40 mEq Oral Daily JANICE Del CidC 40 mEq at 05/27/21913 ramipril (ALTACE) capsule 2.5 mg 2.5 mg Oral Daily MIKA Del Cid-C 2.5 mg at 05/27/2114 ranolazine (RANEXA) extended release tablet 1,000 mg 1,000 mg Oral BID JANICE Del CidC 1,000 mgat 05/27/212007 sodium chloride flush 0.9 [...] mg 4 mg Intravenous Q6H PRN Sd Mroeno PA-C aspirin EC tablet 81 mg 81 [...] BID JANICE Del CidC 100 mg at 05/27/212007 LORazepam (ATIVAN) tablet 0.5 mg 0.5 mg Oral Nightly PRN Renny Biswas MD 0.5 mg at 05/25/21 2316 ARE THERE PERTINENT UPDATES TO PAST,FAMILY, OR [...] Date 05/28/21 0000 - 05/28/21 2359 Shift 2278-0031 6118-5117 8609-1431 24 Hour Total INTAKE P.O. 200 200 Shift Total(mL/kg) 200(1.6) 200(1.6) OUTPUT Urine(mL/kg/hr) 800 800 Shift Total(mL/kg) 800(6.3) 800(6.3) Weight (kg) 126.1 126.1 126.1 126.1 Last BM: COMMUNICATIONS PROFESSIONAL Diet: Reg CVP: No Chest Tubes: R: [...] Radiology ACCESSION EXAM DATE/TIME PROCEDURE ORDERING PROVIDER [id number] 05/24/2021 17:43 EDT CR Humerus 2+ Views [id number] -JOSH SD CPT code 81065 Reason For Exam (CR Humerus 2+ Views [...] Radiology ACCESSION EXAM DATE/TIME PROCEDURE ORDERING PROVIDER [id number] 05/24/2021 05:59 EDT CR Elbow 3+ Views Left MD FONTANA ALEX CPT code 44381 Reason For Exam (CR Elbow 3+ Views [...] Radiology ACCESSION EXAM DATE/TIME PROCEDURE ORDERING PROVIDER [id number] 05/24/2021 05:59 EDT CR Chest 1 View Frontal MD FONTANA ALEX CPT code 19171 Reason For Exam (CR Chest 1 View [...] (HCC) 05/29/2021 Yes I personally supervised the CERTIFIED MASTER SAFE TECHNICIAN/PA-C in the evaluation and development of a [...] MD Division of Trauma Department of Surgery [facility] Pager: [phone] ~~~~~~~~~~~~~~~~~~~~~~~~~~~~~~~~~~~~~~~~~~~~~~~~~~~~~~~~~~~~~ This note may have been dictated using [employer] Edition 2.6 and/or Vuclip Voice Recognition Feature. The document was proofread; however, unrecognized voice recognition oyster picker errors may be present. * Ruma Ahuja, COMMUNICATIONS PROFESSIONAL - 05/27/2021 12:30 PM EDT Physical Therapy Facility/Department: [facility] Daily Treatment Note NAME: Albin Issa [...] (2010); Cardiac surgery (2004); shoulder surgery (Right, 8/'18); above knee amputation (Right, 01/26/2019); Leg Surgery [...] Worked on standing posture and placing RUE clean out driller helper on center handle of hemiwalker and keeping LUE tucked to abdomen. Exercises Hip Flexion: LLE x 10 reps Knee Long Arc Quad: LLE x 10 reps Ankle Pumps: LLE x 10 reps Comments: all while seated in recliner AM-PAC Score AM-PAC Inpatient Mobility Raw Score : 8 (05/27/21 123) AM-PAC Inpatient T-Scale Score : 28.52 (05/27/21 [facility]) Mobility Inpatient CMS 0-100% Score: 86.62 (05/27/21 [facility]) Mobility Inpatient CMS G-Code Modifier : CM (05/27/21 [facility]) Goals Short term goals Time Frame for [...] happened the patient was bending down to pick pulling machine tender a delivery box when his Rolatorgot away [...] mg 40 mg Oral BID MARISELA Balderrama MECHANICS SUPERVISOR 40 mg at 05/26/21 161 enoxaparin (LOVENOX) injection 30 mg 30 mg Subcutaneous BID MARISELA Toth SOCIAL SCIENCE PROFESSOR 30 mg at 05/26/21 221 atorvastatin (LIPITOR) tablet 40 mg 40 mg Oral Nightly Sd Moreno PA-C 40 mg at 05/26/21 220 buPROPion (WELLBUTRIN SR) extended release tablet 150 mg 150 mg Oral BID Sd Moreno PA-C 150 mgat 05/26/21 220 carvedilol (COREG) tablet 3.125 mg 3.125 mg Oral BID WC Sd Moreno PA-C 3.125 mg at 05/26/21 1611 clopidogrel (PLAVIX) tablet 75 mg 75 mg Oral Daily Sd Moreno, PA-C 75 mg at 05/26/21 0951 escitalopram (LEXAPRO) tablet 20 mg 20 mg Oral Daily Sd Moreno PA-C 20 mg at 05/26/21 0952 gabapentin (NEURONTIN) capsule 300 mg 300 mg Oral Nightly Sd Moreno PA-C 300 mg at 05/26/21 2201 isosorbide mononitrate (IMDUR) extended release tablet 60 mg 60 mg Oral BID Sd Moreno PA-C 60 mg at 05/26/212201 cetirizine (ZYRTEC) tablet 10 mg 10 mg Oral Daily Sd Josh, PA-C 10 mg at 05/26/21 1021 [Held by provider] meloxicam (MOBIC) tablet 15 mg 15 mg Oral Daily Sd Moreno PA-C niacin (NIASPAN) extended release tablet 1,000 mg 1,000 mg Oral Nightly MIKA Del Cid-C 1,000 mg at 05/26/21 2214 potassium chloride (KLOR-CON M) extended release tablet 40 mEq 40 mEq Oral Daily MIKA Del Cid-C 40 mEq at 05/26/21 0952 ramipril (ALTACE) capsule 2.5 mg 2.5 mg Oral Daily JANICE Del CidC 2.5 mg at 05/26/21 1021 ranolazine (RANEXA) extended release tablet 1,000 mg 1,000 mg Oral BID JANICE Del CidC 1,000 mgat 05/26/21 2202 sodium chloride flush 0.9 % injection 5-40 mL 5-40 mL Intravenous 2 times per day JANICE Del CidC 5 mL at 05/26/21 1002 sodium chloride flush 0.9 % injection 5-40 mL 5-40 mL Intravenous PRN JANICE Del CidC 0.9 % sodium chloride infusion 25 mL [...] 81 mg 81 mg Oral Daily MIKA Del Cid-C 81 mg at 05/26/21 0951 senna (SENOKOT) tablet 8.6 mg 1 tablet Oral Nightly JANICE Del CidC 8.6 mg at 05/26/21 2202 polyethylene glycol (GLYCOLAX) packet 17 g 17 g Oral Daily Sd Moreno PA-C 17 g at 05/26/21 0951 docusate sodium (COLACE) capsule 100 mg 100 mg Oral BID Sd Moreno PA-C 100 mg at 05/26/21 2202 LORazepam (ATIVAN) tablet 0.5 mg 0.5 mg Oral Nightly PRN Renny Biswas MD 0.5 mg at 05/25/21 2315 ARE THERE PERTINENT UPDATES TO PAST,FAMILY, OR [...] Date 05/27/21 0000 - 05/27/21 2359 Shift 5271-4622 0125-8007 8180-2490 24 Hour Total INTAKE P.O. 350 350 Shift Total(mL/kg) 350(2.8) 350(2.8) OUTPUT Urine(mL/kg/hr) 750 750 Shift Total(mL/kg) 750(5.9) 750(5.9) Weight (kg) 126.1 126.1 126.1 126.1 Last BM: COMMUNICATIONS PROFESSIONAL Diet: Reg CVP: No Chest Tubes: R: [...] Radiology ACCESSION EXAM DATE/TIME PROCEDURE ORDERING PROVIDER [id number] 05/24/2021 17:43 EDT CR Humerus 2+ Views [id number] NOR[place]OD CPT code 94018 Reason For Exam (CR Humerus 2+ Views [...] Radiology ACCESSION EXAM DATE/TIME PROCEDURE ORDERING PROVIDER [id number] 05/24/2021 05:59 EDT CR Elbow 3+ Views Left MD FONTANA ALEX CPT code 25848 Reason For Exam (CR Elbow 3+ Views [...] Radiology ACCESSION EXAM DATE/TIME PROCEDURE ORDERING PROVIDER [id number] 05/24/2021 05:59 EDT CR Chest 1 View Frontal MD FONTANA ALEX CPT code 30494 Reason For Exam (CR Chest 1 View [...] pain 05/25/2021 Yes I personally supervised the CERTIFIED MASTER SAFE TECHNICIAN/ROMEL in the evaluation and development of [...] MD Division of Trauma Department of Surgery [facility] Pager: [phone] ~~~~~~~~~~~~~~~~~~~~~~~~~~~~~~~~~~~~~~~~~~~~~~~~~~~~~~~~~~~~~ This note may have been dictated using [employer] Edition 2.6 and/or Vuclip Voice Recognition Feature. The document was proofread; however, unrecognized voice recognition oyster picker errors may be present. * Arabella Dai, COMMUNICATIONS PROFESSIONAL - 05/26/2021 1:30 PM EDT Physical Therapy Facility/Department: [facility] Daily Treatment Note NAME: Albin Issa [...] before returning to supine in bed G-Code [facility] Score [facility] Inpatient Mobility Raw Score : 10 (05/26/21 133) [facility] Inpatient T-Scale Score : 32.29 (05/26/211331) Mobility Inpatient CMS 0-100% Score: 76.75 (05/26/21 133) Mobility Inpatient CMS G-Code Modifier : CL (05/26/21 133) Goals Short term goals Time Frame for [...] facility policy used during session* Arabella Dai COMMUNICATIONS PROFESSIONAL * Sd Moreno PA-C - 05/26/2021 9:45 [...] 05/26/2021 9:14 AM EDT Occupational Therapy Facility/Department: [facility] Daily Treatment Note NAME: Albin Issa [...] PARISH Teran * Hamilton Mckinnon APRN - JARVIS - 05/26/2021 6:56 AM EDT Images from the original note were not included. Daily Trauma Progress Note Nurse Practitioner 05/26/2021 6:57 AM Admit Date: 05/23/2021 Post Trauma Day 3 Fall SH HISTORY OF TRAUMATIC EVENT: 66 y.o. male status post fall from standing. The incident happened around afternoon on 05/23/21 at home. 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 Rolatorgot away [...] 30 mg 30 mg Subcutaneous BID MARISELA Toth CNP 30 mg at 05/25/212058 atorvastatin (LIPITOR) tablet 40 mg 40 mg Oral Nightly Sd Moreno, PA-C 40 mg at 05/25/212099 buPROPion (WELLBUTRIN SR) extended release tablet 150 mg 150 mg Oral BID Sd Moreno, PA-C 150 mgat 05/25/212112 carvedilol (COREG) tablet 3.125 mg 3.125 mg Oral BID WC Sd Moreno, PA-C 3.125 mg at 05/25/21 174 clopidogrel (PLAVIX) tablet 75 mg 75 mg Oral Daily Sd Josh, PA-C 75 mg at 05/25/21 09 escitalopram (LEXAPRO) tablet 20 mg 20 mg Oral Daily Sd Moreno, PA-C 20 mg at 05/25/21 0755 furosemide (LASIX) tablet 80 mg 80 mg Oral Nightly Sd Josh, PA-C 80 mg at 05/25/212099 gabapentin (NEURONTIN) capsule 300 mg 300 mg Oral Nightly Sd Josh, PA-C 300 mg at 05/25/212099 isosorbide mononitrate (IMDUR) extended release tablet 60 mg 60 mg Oral BID Sd Josh, PA-C 60 mg at 05/25/212099 cetirizine (ZYRTEC) tablet 10 mg 10 mg Oral Daily Sd Moreno PA-C 10 mg at 05/25/21 0755 [Held by provider] meloxicam (MOBIC) tablet 15 [...] Sd Moreno PA-C 2.5 mg at 05/25/21 0907 ranolazine (RANEXA) extended release tablet 1,000 mg 1,000 mg Oral BID Sd Moreno PA-C 1,000 mgat 05/25/212099 sodium chloride flush 0.9 % injection 5-40 mL 5-40 mL Intravenous 2 times per day JANICE Del CidC 10 mL at 05/25/212113 sodium chloride flush 0.9 % injection 5-40 mL 5-40 mL Intravenous PRN JANICE Del CidC 0.9 % sodium chloride infusion 25 mL Intravenous PRN Sd Moreno PA-C acetaminophen (TYLENOL) tablet 1,000 mg 1,000 mg Oral 3 times per day JANICE Del CidC 1,000 mg at 05/26/21 050 oxyCODONE (ROXICODONE) immediate release tablet 5 mg [...] Sd Moreno PA-C 81 mg at 05/25/21 075 senna (SENOKOT) tablet 8.6 mg 1 tablet Oral Nightly JANICE Del CidC 8.6 mg at 05/25/21 2100 polyethylene glycol (GLYCOLAX) packet 17 g 17 g Oral Daily JANICE Del CidC 17 g at 05/25/21 0754 docusate sodium (COLACE) capsule 100 mg 100 mg Oral BID Sd Moreno PA-C 100 mg at 05/25/21 5554 LORazepam (ATIVAN) tablet 0.5 mg 0.5 mg Oral Nightly PRN Renny Biswas MD 0.5 mg at 05/25/21 6943 ARE THERE PERTINENT UPDATES TO PAST,FAMILY, OR [...] Date 05/26/21 0000 - 05/26/21 2359 Shift 5474-7937 2704-6902 4126-4619 24 Hour Total INTAKE Shift Total(mL/kg) OUTPUT Urine(mL/kg/hr) 800 800 Shift Total(mL/kg) 800(6.3) 800(6.3) Weight (kg) 126.1 126.1 126.1 126.1 Last BM: COMMUNICATIONS PROFESSIONAL Diet: Reg CVP: No Chest Tubes: R: [...] Radiology ACCESSION EXAM DATE/TIME PROCEDURE ORDERING PROVIDER [id number] 05/24/2021 17:43 EDT CR Humerus 2+ Views [id number] -SD MORENO CPT code 58500 Reason For Exam (CR Humerus 2+ Views [...] Radiology ACCESSION EXAM DATE/TIME PROCEDURE ORDERING PROVIDER [id number] 05/24/2021 05:59 EDT CR Elbow 3+ Views Left MD FONTANA ALEX CPT code 11492 Reason For Exam (CR Elbow 3+ Views [...] Radiology ACCESSION EXAM DATE/TIME PROCEDURE ORDERING PROVIDER [id number] 05/24/2021 05:59 EDT CR Chest 1 View Frontal MD FONTANA ALEX CPT code 28272 Reason For Exam (CR Chest 1 View [...] 05/24/2021 8:49 am Signed by : MD KELLIE, ALINE Transcribed Date and Time: 05/24/2021 8:47 Patient [...] pain 05/25/2021 Yes I personally supervised the CERTIFIED MASTER SAFE TECHNICIAN/JANICEC in the evaluation and development of a [...] MD Division of Trauma Department of Surgery [facility] Pager: [phone] ~~~~~~~~~~~~~~~~~~~~~~~~~~~~~~~~~~~~~~~~~~~~~~~~~~~~~~~~~~~~~ This note may have been dictated using [employer] Edition 2.6 and/or [employer] Voice Recognition Feature. The document was proofread; however, unrecognized voice recognition oyster picker errors may be present. * Carol Ascencio MD - 05/26/2021 6:34 AM EDT Images from the original note were not included. [facility] [address] [facility] [address] Dept: [phone] Loc: [phone] Orthopedic Progress Note Name: Albin Issa Date:05/26/2021 [...] 4.0 4.5 CL 109* 109* CO2 23 BUN 15 15 CREATININE 1.02 1.13 [...] Independent (with lift chair) Mode of Transportation: SUV Occupation: Retired Additional [...] distally LUE Strength LUE Strength Comment: 3/5 clean out driller helper RUE Strength RUE Strength Comment: 3-/5 shoulder, 4/5 clean out driller helper Plan Plan Times per week: 5 Plan weeks: 4 Current Treatment Recommendations: Strengthening, Gait Training, Patient/Caregiver Education & Training, Equipment Evaluation, Education, & procurement, ROM, Balance Training, Functional Mobility Training, Endurance Training, Safety Education & Training, Self-Care / ADL, Pain Management, Stair training OutComes Score [facility] Daily Activity Inpatient How much help for [...] How much help for eating meals?: None [facility] Inpatient Daily Activity [facility]: [facility] ADL T-Scale Score : 35.96 [...] Time Individual Concurrent Group Co-treatment Time In 54 Time Out 1027 Minutes 33 Timed Code Treatment Minutes: 10 Minutes (ADL) Goals and/or treatment plan was established in collaboration with patient/family/other representatives. Patient's Occupational Therapy Plan of Care [facility]. Pt requires skill of 2 therapists for safety and positioning. Carlita Lira/OT * Maria L Jeffers, PT - 05/25/2021 11:07 AM EDT Physical Therapy Facility/Department: [facility] Initial Assessment NAME: Albin Issa : [...] Subjective: Patient lying in bed upon arrival, patient care nursing assistant finishing assessing vitals. Patient pleasant and [...] Plan of Care supervision is transferred to [facility] Department Physical Therapist. * Kacy Soto DTR - 05/25/2021 8:40 AM EDT Nutrition rescreen completed. Chart reviewed. Patient to be monitored and followed by the diet x ray technician. * Stepan Stephanie, MARISELA - SOCIAL SCIENCE PROFESSOR - 05/25/2021 6:23 AM EDT Images from the original note were not included. Daily Trauma Progress Note Nurse Practitioner 05/25/2021 6:23 AM Admit Date: 05/23/2021 Post Trauma Day 2 Fall SH HISTORY OF TRAUMATIC EVENT: 66 y.o. male status post fall from standing. The incident happened around afternoon on 05/23/21 at home. 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 Rolatorgot away [...] mg Oral BID Sd Moreno PA-C 150 mgat 05/24/212204 carvedilol (COREG) tablet 3.125 [...] Daily Sd Moreno PA-C 10 mg at 05/24/21930 [Held by provider] meloxicam (MOBIC) tablet 15 mg 15 mg Oral Daily Sd Moreno PA-C niacin (NIASPAN) extended release tablet 1,000 mg 1,000 mg Oral Nightly Sd Moreno PA-C potassium chloride (KLOR-CON M) extended release tablet 40 mEq 40 mEq Oral Daily JANICE Del CidC 40 mEq at 05/24/21930 ramipril (ALTACE) capsule 2.5 mg 2.5 mg Oral Daily Sd Moreno PA-C 2.5 mg at 05/24/21940 ranolazine (RANEXA) extended release tablet 1,000 mg 1,000 mg Oral BID Sd Moreno PA-C 1,000 mgat 05/24/212203 sodium chloride flush 0.9 [...] Nightly Sd Moreno PA-C 8.6 mg at 05/24/21 220 polyethylene glycol (GLYCOLAX) packet 17 g 17 g Oral Daily Sd Moreno PA-C docusate sodium (COLACE) capsule 100 mg 100 mg Oral BID Sd Moreno PA-C 100 mg at 05/24/21 220 ceFAZolin (ANCEF) 3,000 mg in dextrose 5 % 100 mL IVPB 3,000 mg Intravenous Q8H JANICE Del CidCStopped at 05/25/21 0255 LORazepam (ATIVAN) tablet 0.5 [...] Temporal 63 18 97 % Last BM: COMMUNICATIONS PROFESSIONAL Diet: Reg CVP: No Chest Tubes: R: [...] Radiology ACCESSION EXAM DATE/TIME PROCEDURE ORDERING PROVIDER [id number] 05/24/2021 17:43 EDT CR Humerus 2+ Views [id number] -SD MORENO CPT code 76758 Reason For Exam (CR Humerus 2+ Views [...] Result Date: 05/24/2021 Patient Name: ALBIN ISSA [facility]#: [id number] Diagnostic Radiology ACCESSION EXAM DATE/TIME PROCEDURE ORDERING PROVIDER [id number] 05/24/2021 05:59 EDT CR Elbow 3+ Views Left MD FONTANA ALEX CPT code 02197 Reason For Exam (CR Elbow 3+ Views [...] Result Date: 05/24/2021 [id number] Radiology ACCESSION EXAM DATE/TIME PROCEDURE ORDERING PROVIDER [id number] 05/24/2021 05:59 EDT CR Chest 1 View Frontal MD FONTANA ALEX CPT code 61332 Reason For Exam (CR Chest 1 View [...] MD Division of Trauma Department of Surgery [facility] Pager: [phone] ~~~~~~~~~~~~~~~~~~~~~~~~~~~~~~~~~~~~~~~~~~~~~~~~~~~~~~~~~~~~~ This note may have been dictated using [employer] Edition 2.6 and/or [employer] Voice Recognition Feature. The document was proofread; however, unrecognized voice recognition oyster picker errors may be present. * Carol Ascencio MD - 05/25/2021 6:15 AM EDT Images from the original note were not included. [facility] [address] [place], [place] [id number] Dept: [phone] Loc: [phone] Orthopedic Progress Note Name: Albin Issa Date:05/25/2021 Attending:Roni Fiugeroa MD Subjective Pain well controlled. Nerve block [...] EDT Patient to be transported back to [facility]. Telephone report given to JUANCHO Wells [...] eGFR 88.3 >60 mL/min EGFR IF NonAfrican [place]araguan 76.2 >60 mL/min Calcium 9.3 8.4 - [...] # 1.3 1.0 - 4.3 10*3/uL Absolute Baldwin # 0.5 0.0 - 0.8 10*3/uL Absolute [...] team -Ortho to follow documented in this [facility] Work Phone: [phone]) 563-371906-30-2021 Hospital Discharge instructions* Discharge Instr - Activity* [...] BOSWELL MD Discharging Nurse: Discharging Hospital Unit/Room#: [id number]/[id number] Discharging Unit Phone Number: Emergency Contact: Extended Emergency Contact Information Primary Emergency Contact: Maddy Issa [facility] Relation: Lay Caregiver Past Surgical History: Past Surgical History: Procedure Laterality Date ABOVE KNEE AMPUTATION Right 01/26/2019 CARDIAC DEFIBRILLATOR PLACEMENT 2010 CARDIAC SURGERY 2005 bypass x 2 COLONOSCOPY [...] M16.12 S/P AKA (above knee amputation), right ([facility]) Z89.611 MRSA (methicillin resistant Staphylococcus aureus) infection [...] MENTAL STATUS::::0} IV Access: { MICHAELA IV ACCESS:[id number]:::0} Nursing Mobility/ADLs: Walking {CHP DME ADLs:[id number]:::0} Transfer {CHP DME ADLs:[id number]:::0} Bathing {CHP DME ADLs:[id number]:::0} Dressing {CHP DME ADLs:[id number]:::0} Toileting {CHP DME ADLs:[id number]:::0} Feeding {CHP DME ADLs:[id number]:::0} Reception Specialist {CHP DME ADLs:[id number]:::0} Med Delivery { MICHAELA MED Delivery:[id number]:::0} Wound Care Documentation and Therapy: Negative Pressure Wound Therapy Leg Right;Upper (Active) Number of days: 762 Elimination: Continence: Bowel: {YES / NO:} Bladder: {YES / NO:} Urinary Catheter: {Urinary Catheter:822838276:::0} Colostomy/Ileostomy/Ileal Conduit: {YES / NO:} Date of Last BM: No intake or output data in the 24 hours ending 05/25/21 1230 No intake/output data recorded. Safety Concerns: { MICHAELA Safety Concerns:659646107:::0} Impairments/Disabilities: { MICHAELA Impairments/Disabilities:364693971:::0} Nutrition Therapy: Current Nutrition Therapy: { MICHAELA Diet List:482295997:::0} Routes of Feeding: {P DME Other Feedings:748622725:::0} Liquids: {Process Improvement Engineer liquid thickness:93521} Daily Fluid Restriction: {CHP DME Yes amt example:005149513:::0} Last Modified Barium Swallow with Video (Video Swallowing Test): {Done Not Done Date::::0} Treatments at the Time of Hospital Discharge: Respiratory Treatments: Oxygen Therapy: {Therapy; copd oxygen:04460:::0} Ventilator: { CC Vent List:615779228:::0} Rehab Therapies: {THERAPEUTIC INTERVENTION:0683767875} Weight Bearing Status/Restrictions: {MH CC Weight Bearin:::0} Other Medical Equipment (for information only, NOT a DME order): {EQUIPMENT:991338649} Other Treatments: Patient's personal belongings (please select all that are sent with patient): {CHP DME Belongings:116423764:::0} RN SIGNATURE: {Esignature:291452838:::0} CASE MANAGEMENT/SOCIAL WORK SECTION Inpatient Status Date: 05-23-21 Readmission Risk Assessment Score: Readmission Risk Risk of Unplanned Readmission: 10 Discharging to Facility/ Agency [facility]: [facility] Address:[address] [place] [address] Dialysis Facility (if applicable) Name: Address: Dialysis Schedule: Phone: Fax: Sous Chef/Enrolled Agent signature: PHYSICIAN SECTION Prognosis: Good Condition at Discharge: Stable Rehab Potential (if transferring to Rehab): Good Recommended Labs or Other Treatments After Discharge: None Physician Certification: I certify the above information and transfer of Albin Issa is necessary for the continuing treatment of the diagnosis listed and that he requires Assisted Facility for less 30 days. Update Admission [...] have anyproblems or questions. documented in this [facility] Work Phone: 1(810) 402-553808-02-2017 Fall risk [id number]/08/02[facility] NoFall [facility]When[facility] Work Phone: 1(302) 525-137807-14-2017 Fall risk [id number]/07/14[facility] NoFall [facility] assessmentWhen[facility] Work Phone: 1(250) 793-646906-14-2017 Fall risk elghogmuor3240/06/14[facility] NoFall risk assessmentWhen[facility] Infect[facility] Disease Work Phone: 1(102) 804-985305-31-2017 Fall risk [id number]/05/31[facility] NoFall risk assessmentWhen[facility] Work Phone: 1(912) 816-722309-01-2010 Evaluation note* Diagnosis Onset Date Resolution Status 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 Chronic systolic congestive heart failure chronic Essential hypertension chron ic ICD (implantable cardioverte r-defibrillator) in place August, chronic Ischemic cardiomyopathy 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 Mixed hyperlipidemia chronic Postsurgical aortocoronary bypass status June, chronic Automatic implantable cardio verter-defibrillator in situ chronic Chronic systolic congestive heart failure chronic Ischemic cardiomyopathy [facility] Work Phone: [phone]) 560-426509-01-2010 Evaluation note* Diagnosis Onset Date Resolution Status 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 Chronic systolic congestive heart failure chronic Essential hypertension chron ic ICD (implantable cardioverte r-defibrillator) in place August, chronic Ischemic cardiomyopathy 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 Mixed hyperlipidemia chronic Postsurgical aortocoronary bypass status June, chronic Automatic implantable cardio verter-defibrillator in situ chronic Chronic systolic congestive heart failure chronic Ischemic cardiomyopathy 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 Automatic implantable cardio verter-defibrillator in situ chronic Chronic systolic congestive heart failure chronic ICD (implantable cardioverte r-defibrillator) in place August, chronic Ischemic cardiomyopathy [facility] Work Phone: [phone]) 927-772609-01-2010 Evaluation note* Diagnosis Onset Date Resolution Status Automatic implantable cardio verter-defibrillator in situ chronic Chronic systolic congestive heart failure chronic ICD (implantable cardioverte r-defibrillator) in place August, chronic Ischemic cardiomyopathy [facility] Work Phone: [phone]) 568-654709-01-2010 Evaluation note* Diagnosis Onset Date Resolution Status Automatic implantable cardio verter-defibrillator in situ chronic ICD (implantable cardioverte r-defibrillator) in place August, chronic Ischemic cardiomyopathy [facility] Work Phone: [phone] 985-176109-01-2010 Evaluation note* Diagnosis Onset Date Resolution Status Chronic systolic congestive heart failure chronic ICD (implantable cardioverte r-defibrillator) in place August, chronic Ischemic cardiomyopathy 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 CAD (coronary artery disease) chronic Essential hypertension chron ic ICD (implantable cardioverte r-defibrillator) in place August, chronic Ischemic cardiomyopathy 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 Mixed hyperlipidemia chronic Obesity (BMI 30-39.9) chroni c [facility] Work Phone: [phone]) 193-233509-01-2010 Evaluation note* Diagnosis Onset Date Resolution Status CAD (coronary artery disease) chronic Essential hypertension chron ic ICD (implantable cardioverte r-defibrillator) in place August, chronic Ischemic cardiomyopathy October, ch ronic Mixed hyperlipidemia chronic Obesity (BMI 30-39.9) chroni c CAD (coronary artery disease) chronic ICD (implantable cardioverte r-defibrillator) in place August, [facility] Work Phone: [phone]) 542-489709-01-2010 Evaluation note* Diagnosis Onset Date Resolution Status CAD (coronary artery disease) chronic ICD (implantable cardioverte r-defibrillator) in place August, [facility] Work Phone: [phone] 354-587509-01-2010 Evaluation note* Diagnosis Onset Date Resolution Status [...] 2025 2:00pm Obesity (BMI 30-39.9) chronic Sly e 2024 2:00pm [facility] Work Phone: Evaluation note* Diagnosis Acute traumatic pain- Primary Acute pain due to trauma Closed fracture of lower epiphysis of humerus Closed fracture of unspecified condyle(s) of humerus Left supracondylar humerus fracture, closed, initial encounter Ischemic cardiomyopathy Other specified forms of chronic ischemic heart disease Chronic systolic congestive heart failure (HCC) Chronic systolic heart failure documented in this encounter [facility] Work Phone: Evaluation note* Diagnosis Onset Date Resolution Status Lateral epicondylitis of left elbow acute Left elbow pain acute 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 Chronic systolic congestive heart failure chronic Essential hypertension chron ic ICD (implantable cardioverte r-defibrillator) in place August, chronic Ischemic cardiomyopathy 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 Mixed hyperlipidemia chronic Postsurgical aortocoronary bypass status June, chronic Automatic implantable cardio verter-defibrillator in situ chronic Chronic systolic congestive heart failure chronic Ischemic cardiomyopathy 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 [facility] Work Phone: Evaluation note* Diagnosis Arthritis of left subtalar joint [facility] ICD (implantable cardioverter-defibrillator) battery depletion Pacemaker lead malfunction Mechanical complication due to cardiac pacemaker (electrode) ICD (implantable cardioverter-defibrillator) battery depletion [facility] Arth[facility] of left subtalar joint [facility] Diagnosis Arthritis of left subtalar joint [facility] Discharge instructions Additional Instructions You have a virus. Plenty of fluids and rest. Prednisone as needed for wheezing. Follow-up with your doctor if not improving or return if worse.[facility] Work Phone: Hospital Discharge instructions Additional Instructions Cardiac workup including D-dimer negative. Chest x-ray negative. BNP normal. Continue your home medications. Follow-up with your cardiology team for treatment as plan. You develop recurrent worsening symptoms, return to the ED for reevaluation.[facility] Work Phone: Reason for referral (narrative)No reason for referral information availableSc[facility] Work Phone: Summary Purpose Family History [...] FoundDocuments on File Type Date Recorded Patient Staff Analyst Expl anation ACP-Advance Directive ACP-Power of Optical Goods Worker Latest Code Status on File Code Status [...] Will Yes January 15 11:11pm Power of Optical Goods Worker Yes January 15, 2022 11:11pm Advance Directive Response Recorded Date/ Time Advance Directives No December 31, 2015 6:47pm Living Will Yes January 15 10:11pm Power of Optical Goods Worker Yes January 15, 2022 10:11pm Advance Directive Response Recorded Date/ Time Name of Medical Power of Optical Goods Worker DAUGHTER AND S ON October 27, 2022 4:09pm Advance Directives No December 31, 2015 6:47pm Living Will Yes October 27 4:09pm Power of Optical Goods Worker Yes October 27, 2022 4:09pm Advance Directive Response Recorded Date/ Time Advance Directives No December 31, 2015 7:47pm Living Will Yes October 27 5:09pm Power of Optical Goods Worker Yes October 27, 2022 5:09pm Latest Code [...] 31, 2015 6:47pm Living Will Yes October 27 4:09pm Power of Optical Goods Worker Yes October 27, 2022 4:09pm Advance Directive Response Recorded Date/ Time Living Will Yes October 27 5:09pm Do you have a Healthcare Power of Optical Goods Worker? Yes October 27, 2022 5:09pm Advance Directives No December 31, 2015 7:47pm Advance Directive Response Recorded Date/ Time Living Will Yes October 27 5:09pm Do you have a Healthcare Power of Optical Goods Worker? Yes October 27, 2022 5:09pm Do you have a Healthcare Power of Optical Goods Worker? No May 09, 2025 12:06am Advance Directives No December 31, 2015 7:47pm Advance Directive Response Recorded Date/ Time Do you have a Healthcare Power of Optical Goods Worker? No May 09, 2025 12:06am Advance Directives No December 31, 2015 7:47pm Chief Complaint and Reason for Visit Chief Complaint flank pain sees JEFFRY@2:30 PRE-OP EORDER- ANKLE EORDER Reason for Visit Atherosclerotic hear t disease of igiugig coronary artery without angina pectoris Chronic systolic congestive heart failure Essential hypertension ICD (implantable cardioverter-defibrillator) in place Ischemic cardiomyopathy Mixed hyperlipidemia Postsurgical aortocoronary bypass status Automatic implantable cardioverter-defibrillator in situ Chronic systolic congestive heart failure Ischemic cardiomyopathy Chief Complaint sees JEFFRY@2:30 PRE-OP EORDER- ANKLE EORDER 3 MO CK LT ANKLE OSTEOARTHRITIS Reason for Visit Atherosclerotic hear t disease of igiugig coronary artery without angina pectoris Chronic systolic [...] Left elbow pain Atherosclerotic heart disease of igiugig coronary artery without angina pectoris Chronic systolic [...] Left elbow pain Atherosclerotic heart disease of igiugig coronary artery without angina pectoris Chronic systolic [...] (BMI 30-39.9) May 03, 2025 2:0 0pm Chief Complaint Admit Date Pacer Check Remote January 25, 2025 9:00am Annual in-clinic f/u January 25, 2025 1:51pm Pacer Check Remote February 04, 2025 4:38 pm Pacer Check Remote February 18, 2025 2:0 0am 6 M FU May 03, 2025 2:00p m chest pain May 09, 2025 12:01 am Chief Complaint Admit Date Pacer Check Remote January 25, 2025 9:00am Annual in-clinic f/u January 25, 2025 1:51pm Pacer Check Remote February 04, 2025 4:38 pm Pacer Check Remote February 18, 2025 2:0 0am 6 M FU May 03, 2025 2:00p m chest pain May 09, 2025 12:01 am PE PROTOCOL May 12, 2025 2:54 pm Chief Complaint Admit Date Pacer Check Remote February 04, 2025 4:38 pm Pacer Check Remote February 18, 2025 2:0 0am 6 M FU May 03, 2025 2:00p m chest pain May 09, 2025 12:01 am PE PROTOCOL May 12, 2025 2:54 pm Pacer Check Remote May 20, 2025 2:00 am Reason for Visit Admit Date CAD (coronary artery disease) May 03, 2025 [...] PACEMAKER/ICD INTERROGATION David Ramirez MD [address] [place] [phone] Referral ID Status Reason Start Date Expiration Date V isits Requested Visits Authorized [id number] New Request 01/06/2024 01/30/2025 1 1 Specialty Diagnoses / Procedures Referred By Contac t Referred To Contact Procedures NO PHARMACOLOGICAL DVT PROPHYLAXIS Rosio Douglass APRN-SOCIAL SCIENCE PROFESSOR [address] [place] [phone] Referral ID Status Reason Start Date Expiration Date V isits Requested Visits Authorized [id number] New Request 01/06/2024 01/30/2025 1 1 Specialty Diagnoses / Procedures Referred By Contac t Referred To Contact Procedures DVT/VTE RISK ASSESSMENT Rosio Douglass APRN-SOCIAL SCIENCE PROFESSOR [address] [place] [phone] Referral ID Status Reason Start Date Expiration Date V isits Requested Visits Authorized [id number] New Request 01/06/2024 01/30/2025 1 1 Specialty Diagnoses / Procedures Referred By Bernabe fiore Referred To Contact Procedures ECG Wilda Hinojosa, CERTIFIED MASTER SAFE TECHNICIAN-SOCIAL SCIENCE PROFESSOR [address] [place] [address] Referral ID Status Reason Start Date Expiration Date V isits Requested Visits Authorized [id number] New Request 01/06/2024 01/30/2025 1 1 Additional Source Comments (unrecognized sect ion and content) No Status Records FoundNo Status Records FoundNo Status Records FoundNo Status Records FoundNo Status Records FoundNo Status Records FoundNo Status Records Found INFORMATION SOURCE (unrecogn ized section and content) DATE CREATED AUTHOR 04/20/2020 [facility] DATE CREATED AUTHOR AUTHOR'S ORGANIZ ATION 06/02/2021 [facility] DATE CREATED AUTHOR AUTHOR'S ORGANIZ ATION 06/11/2021 [facility] DATE CREATED AUTHOR AUTHOR'S ORGANIZ ATION 03/09/2022 [facility] ([place]) DATE CREATED AUTHOR AUTHOR'S ORGANIZ ATION 01/16/2024 [facility] DATE CREATED AUTHOR AUTHOR'S ORGANIZ ATION 03/31/2024 [facility] DATE CREATED AUTHOR AUTHOR'S ORGANIZ ATION 06/01/2025 [facility] Ordered Prescriptions (unrec ognized section and content) [...] Provider: Haylee Abdullahi RN - Reason: Patient/family refused)194 (Given - Provider: Kenan Jacobsen RN) 0600 (Due)1400 (Due)2200 (Due) aspirin EC tablet 81 mg 81 mg, Oral, DAILY, First dose on Sat05/24/21 at 0900, Do not crush or break. 0910 (Given - Provider: Mary Anne Husain RN) 0922 (Given - Provider: Haylee Abdullahi, JUANCHO) 0900 (Due) atorvastatin (LIPITOR) tablet 40 mg 40 mg, Oral, NIGHTLY, First dose on Sat05/24/21 at 2100 2013 (Given - Provider: María Henry RN) 194 (Given - Provider: Kenan Jacobsen RN) 2099 (Due) bisacodyl (DULCOLAX) suppository 20 mg 20 mg, Rectal, DAILY, First dose (after last modification) on Sat05/30/21 at 0900 0912 (Given - Provider: Mary Anne Husain RN) 0923 (Given - Provider: Haylee Abdullahi, JUANCHO) 0900 (Due) buPROPion (WELLBUTRIN SR) extended release tablet [...] Sat05/24/21 at 0900, Substituted for Loratadine (CLARITIN). 908 (Given - Provider: Mary Anne Husain RN) [...] at 2100, Do not crush or break. 908 (Given - Provider: Mary Anne Husain RN)2013 (Given - Provider: María Henry RN) 920 (Given - Provider: Haylee Abdullahi RN)1946 (Given - Provider: Kenan Jacobsen RN) 899 (Due)2099 (Due) enoxaparin (LOVENOX) injection 30 mg (CANCELED) 30 mg, Subcutaneous, 2 TIMES DAILY, First dose on Sat05/25/21 at 0900 0910 (Given - Provider: Mary Anne Husain RN) enoxaparin (LOVENOX) injection 40 mg 40 mg, Subcutaneous, 2 TIMES DAILY, First dose (after last modification) on Sat05/30/21 at 2099 2013 (Given - Provider: María Herny RN) 921 (Given - Provider: Haylee Abdullahi RN)1947 (Given - Provider: Kenan Jacobsen RN) 899 (Due)2099 (Due) escitalopram (LEXAPRO) tablet 20 mg 20 mg, Oral, DAILY, First dose on Sat05/24/21 at 0900 0910 (Given - Provider: Mary Anne Husain RN) 0922 (Given - Provider: Haylee Abdullahi RN) 899 (Due) furosemide (LASIX) tablet 40 mg 40 mg, Oral, 2 TIMES DAILY, First dose (after last modification) on Sat05/26/21 at 1730 0910 (Given - Provider: Mary Anne Husain RN)1621 (Given - Provider: Mary Anne Husain RN) 09 (Given - Provider: Haylee Abdullahi, JUANCHO)1758 (Given - Provider: Haylee Abdullahi RN) 08 (Due)1729 (Due) gabapentin (NEURONTIN) capsule 300 mg [...] at 0215, Do not crush or chew. 09 (Given - Provider: Mary Anne Husain RN)2013 [...] on Sat05/24/21 at 0900 0900 (Automatically Held) 0900 (Automatically Held) 899 (Automatically Held) niacin (NIASPAN) extended release tablet 1,000 mg 1,000 mg, Oral, NIGHTLY, First dose on Sat05/24/21 at 2100, Do not crush or break. 2013 (Given - Provider: María Henry RN) 1948 (Given - Provider: Kenan Jacobsen RN) 2099 (Due) polyethylene glycol (GLYCOLAX) packet 17 g 17 g, Oral, 2 TIMES DAILY, First dose (after last modification) on Sat05/28/21 at 2100 09 (Given - Provider: Mary Anne Husain [...] at 0215, Do not crush or break. 908 (Given - Provider: Mary Anne Husain, JUANCHO)2013 (Given - Provider: María Henry, JUANCHO) 921 (Given - Provider: Haylee Abdullahi, JUANCHO)1946 [...] Provider: Kenan Jacobsen, JUANCHO) 899 (Due)2099 (Due) sodium chloride flush 0.9 [...] Midline or Central Line = 20 mL/lumen 09 (Given - Provider: Mary Anne Husain RN)2015 (Given - Provider: María Henry RN) 925 [...] 1700, Until Discontinued 222 (Given - Provider: Aline Mccoy RN) 0842 (Given - Provider: Kala Arellano RN) Atorvastatin (LIPITOR) tablet 80 mg 80 mg, Oral, DAILY AT BEDTIME, First dose on Sat01/06/24 at 2100, Until Discontinued 2216 (Given - Provider: Aline Mccoy RN) carveDILOL (COREG) tablet 25 mg [...] 2100, Until Discontinued 2216 (Given - Provider: Aline Mccoy RN) Isosorbide mononitrate (IMDUR) tablet XL 60 mg 60 mg, Oral, 2 TIMES DAILY, First dose on Sat01/06/24 at 2100, Until Discontinued, Do not crush or chew. May be divided in half. 2216 (Given - Provider: Aline Mccoy RN) 08 (Given - Provider: Kala Arellano RN) Lisinopril (PRINIVIL) tablet 10 mg 10 mg, Oral, DAILY, First dose on Sat01/07/24 at 0900, Until Discontinued 0841 (Given - Provid er: Kala Arellano RN) Pantoprazole (PROTONIX) tablet DR 40 mg 40 mg, Oral, DAILY, First dose on Sat01/07/24 at 0900, Until Discontinued, Swallow whole; do not crush or chew., Indications: Continuation of Home Therapy 0844 (Given - Provid er: Kala Arellano RN) temazepam (RESTORIL) capsule 15 mg 15 mg, Oral, DAILY AT BEDTIME, First dose on Sat01/06/24 at 2100, Until Discontinued, Swallow capsule whole; do not crush, open, or chew. Contact pharmacy if alternate route or dose is needed. 2239 (Given - Provider: Aline Mccoy RN) traZODone (DESYREL) tablet 50 mg 50 mg, Oral, DAILY AT BEDTIME, First dose on Sat01/06/24 at 2100, Until Discontinued 2217 (Given - Provider: Aline Mccoy RN) PRN Medication Order 01/05/2024 01/06/2024 01/07/2024 [...] DIRECTED, Starting on Sat01/06/24 at 1203, Until Tu01/07/24 at 1056, Other, Magnesium Replacement Therapy, If [...] NEEDED, Starting on Sat01/06/24 at 1203, Until Tu01/07/24 at 1056, Nausea / Vomiting oxyCODONE (ROXICODONE) [...] 1,500 mg, Intravenous, Administer over 1 Hours, CASH APPLICATION CLERK TO PROCEDURE, 1 dose, Starting on Sat01/06/24 at 0000, Until Discontinued, Other, Preoperative antibiotic, Order should be timed for day of procedure. 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 Vancomycin is preferred agent for device implants, based on national, community and local ([facility]) MRSA rates., Pre-op/Pre-Proc 0735 ($$New Bag$$ - [...] Active Radha Sanches NP-C Attending Provider Active Giving Officer Relationship Specialty Start Date End Date Speedy Boswell MD [address] [facility] [address] [place] [address] PCP - General 01/19/19 Team Status: Inactive [...] Speedy Boswell MD Primary Care Provider Active Jeffry Rosado NP, MECHANICS SUPERVISOR-C Attending Provider Active Team Status: Inactive Member Role Status Dates Dr. Speedy Boswell MD Primary Care Provider Active Dr. Delilah Villagomez MD Attending Provider, Referring Pr ovider Active Giving Officer Relationship Specialty Start Date End Date Speedy Boswell MD [address] [place] [address] PCP - General Family Medicine 11/21/23 Delilah Villagomez MD [address] [place] [address] Cardiovascular Disease 09/11/23 Giving Officer Relationship Specialty Start Date End Date Speedy Boswell MD [address] [place] [address] PCP - General Family Medicine 11/21/23 Delilah Villagomez MD [address] [place] [address] Cardiovascular Disease 09/11/23 Team Status: Inactive Member [...] Cazares DO Attending Provider, Referring Provider Active Giving Officer Relationship Specialty Start Date End Date Speedy Boswell MD [address] [place] [address] PCP - General 01/19/19 Giving Officer Relationship Specialty Start Date End Date Speedy Boswell MD [address] [facility] [address] [place] [id number] PCP - General 01/19/19 Team Status: Active [...] May 03, 2025 End: May 03, 2025 Team Status: Inactive Member Role Status Dates Dr. Speedy Boswell MD Primary Care Provider Active Start: May 09, 2025 End: May 09, 2025 Dr. Kenneth Redmond DO Emergency Provider Active Start : May 09, 2025 End: May 09, 2025 Team Status: Inactive Member Role Status Dates Dr. Speedy Boswell MD Primary Care Provider Active Start: May 09, 2025 End: May 09, 2025 Dr. Kenneth Redmond DO Attending Provider Active Start : May 09, 2025 End: May 09, 2025 Dr. Kenneth Redmond DO Emergency Provider Active Start : May 09, 2025 End: May 09, 2025 Team Status: Active Member Role Status Dates Dr. Speedy Boswlel MD Primary Care Provider Active Start: May 12, 2025 Dr. Speedy Boswell MD Attending Provider Active Start: May 12, 2025 Dr. Speedy Boswell MD Referring Provider Active Start: May 12, 2025 Team Status: Inactive Member Role Status Dates Dr. Speedy Boswell MD Primary Care Provider Active Start: May 12, 2025 End: May 12, 2025 Dr. Speedy Boswell MD Attending Provider Active Start: May 12, 2025 End: May 12, 2025 Dr. Speedy Boswell MD Referring Provider Active Start: May 12, 2025 End: May 12, 2025 Team Status: Active Member Role/Relationship Status Dates Dr. Speedy Boswell MD Primary Care Provider Active Team Status: Inactive Member Role/Relationship Status Dates Dr. Speedy Boswell MD Primary Care Provider Active Start: February 04, 2025 End: February 04, 2025 Dr. Ge Tomlinson MD Attending Provider Active S tart: February 04, 2025 End: February 04, 2025 Dr. Ge Tomlinson MD Referring Provider Active S tart: February 04, 2025 End: February 04, 2025 Team Status: Inactive Member Role/Relationship Status Dates Dr. Speedy Boswell MD Primary Care Provider Active Start: February 18, 2025 End: February 18, 2025 Dr. Ge Tomlinson MD Attending Provider Active S tart: February 18, 2025 End: February 18, 2025 Dr. Ge Tomlinson MD Referring Provider Active S tart: February 18, 2025 End: February 18, 2025 Team Status: Inactive Member Role/Relationship Status Dates Dr. Speedy Boswell MD Primary Care Provider Active Start: May 03, 2025 End: May 03, 2025 Dr. Speedy Boswell MD Referring Provider Active Start: May 03, 2025 End: May 03, 2025 Dr. Delilah Villagomez MD Attending Provider Active Start: May 03, 2025 End: May 03, 2025 Team Status: Inactive Member Role/Relationship Status Dates Dr. Speedy Boswell MD Primary Care Provider Active Start: May 09, 2025 End: May 09, 2025 Dr. Kenneth Redmond DO Attending Provider Active Start : May 09, 2025 End: May 09, 2025 Dr. Kenneth Redmond DO Emergency Provider Active Start : May 09, 2025 End: May 09, 2025 Team Status: Inactive Member Role/Relationship Status Dates Dr. Speedy Boswell MD Primary Care Provider Active Start: May 12, 2025 End: May 12, 2025 Dr. Speeyd Boswell MD Attending Provider Active Start: May 12, 2025 End: May 12, 2025 Dr. Speedy Boswell MD Referring Provider Active Start: May 12, 2025 End: May 12, 2025 Team Status: Inactive Member Role/Relationship Status Dates Dr. Speedy Boswell MD Primary Care Provider Active Start: May 12, 2025 End: May 12, 2025 Dr. Speedy Boswell MD Attending Provider Active Start: May 12, 2025 End: May 12, 2025 Dr. Speedy Boswell MD Referring Provider Active Start: May 12, 2025 End: May 12, 2025 Team Status: Inactive Member Role/Relationship Status Dates Dr. Speedy Boswell MD Primary Care Provider Active Start: May 20, 2025 End: May 20, 2025 Dr. Ge Tomlinson MD Attending Provider Active S tart: May 20, 2025 End: May 20, 2025 Reason for Visit (unrecogniz ed section and content) Reason Comments Follow-up [facility] left subtalar haile int injection Specialty Diagnoses / Procedures Referred By Contac t Referred To Contact Diagnoses Venous (peripheral) insufficiency Venous (peripheral) insufficiency [I87.2] Procedures [place] INJECTION PROC,EXTREMITY,VENOGRAPHY VENOGRAM David Ramirez MD [address] [place] [id number] [facility] [address] [place] [address] Referral ID Status Reason Start Date Expiration Date Visits Re quested Visits Authorized [id number] 1 1 Specialty Diagnoses / Procedures Referred By Contac t Referred To Contact Diagnoses ICD (implantable cardioverter-defibrillator) battery depletion ICD (implantable cardioverter-defibrillator) battery depletion [Z45.02] Procedures IL RMVL IMPLTBL DFB PLSE GEN W/REPL PLSE GEN 1 LEAD [place] INSJ 1 TRANSVNS ELTRD PERM PACEMAKER/IMPLTBL DFB ICD GENERATOR CHANGEOUT LEAD INSERTION Justin Pittman MD [address] [place] [phone] [facility] [address] [place] [address] Referral ID Status Reason Start Date Expiration Date Visits Re quested Visits Authorized [id number] 1 1 Reason Comments Follow-up [facility] left [...] BE BASED ON THE PRIMARY CLINICAL RECORDS. [employer] provides no warranty or guarantee of the accuracy or completeness of information in this document.
--- NOTE | 2025-06-10 11:21 | STRESSREP ---
Stress Test Report Date: 06/10/2025 Procedure: Pharmacologic stress nuclear imaging study Indications: CAD Consent: Per the patient Procedure: The patient underwent pharmacologic (Regadenoson 0.4mg ) evaluation with a peak heart rate of 76 beats per minute (50%predicted maximal heart rate) and a peak blood pressure of 142/62 mmHg. The baseline ECG demonstrated sinus rhythm. The peak pharmacologic ECG did not show any ischemic changes. There were no cardiac dysrhythmias pretest, during pharmacologic infusion, or recovery. There was no complaint of chest discomfort during pharmacologic infusion or recovery. The patient was injected with 15.0 millicuries of technetium 99m Cardiolite and subsequently rest SPECT Cardiolite nuclear imaging was obtained in the horizontal long, vertical long, and short axis views. The patient underwent pharmacologic (Regadenoson) evaluation. The patient was injected with 44.7 millicuries of technetium 99m Cardiolite and subsequently stress SPECT Cardiolite nuclear imaging was obtained in the horizontal long, vertical long, and short axis views. A gated Cardiolite study at peak stress was obtained. The examination was stopped secondary to completion of protocol. Rest and stress SPECT Cardiolite nuclear imaging status post realignment, normalization, and attenuation correction demonstrate large fixed apical perfusion defect suggestive of prior transmural infarct with no significant omaira-infarct ischemia. The gated study reveals apical akinesis. The reported LVEF is 43%. Impression: 1. Pharmacologic (Regadenoson) evaluation 2. Peak pharmacologic ECG with no diagnostic ischemic changes. 3. There were no cardiac dysrhythmias pretest, during pharmacologic infusion, or recovery. 5. Large fixed apical perfusion defect suggestive of prior transmural infarct with no significant omaira-infarct ischemia. 6. The gated Cardiolite study reports an LVEF of 43%. This note was generated with Active[employer] software. It may contain incorrect words, spelling, and punctuation that were not noted in checking the note before signing.
== END | disposition home or self-care (01) ==
LOC: CVS 06:58
PROVIDERS: PCP Family Medicine; Referring Provider Internal Medicine Cardiovascular Disease; Visit Provider Internal Medicine Cardiovascular Disease
DX: I25.10 Atherosclerotic heart disease of native coronary artery without angina pectoris (principal); Z95.810 Presence of automatic (implantable) cardiac defibrillator; Z95.5 Presence of coronary angioplasty implant and graft; Z95.1 Presence of aortocoronary bypass graft
CPT/HCPCS: 78452; 93017; 93306; A9500; Q9957; A4216; C8929; J2785

== ENCOUNTER → 2025-07-02 | Outpatient (CLI) | payer MEDICARE, SELFPAY ==
[2025-07-02 18:28] LABS: Anion Gap 13 (5-15); BUN 27 mg/dL (4-19); BUN/Creat Ratio 17.6 RATIO (10-20); Calcium,Total 9.7 mg/dL (7.6-11.0); Carbon Dioxide 20.6 mmol/L (21.0-32.0); Chloride 106 mmol/L (98-108); Glucose 105 mg/dL (70-99); Potassium 4.6 mmol/L (3.3-5.1)
--- OUTSIDE RECORDS SUMMARY | 2025-07-02 19:29 | XMS RPT_ITS | CCD ---
Author Organization [facility] Care Team Providers Care Group Sales Representative Name Role Phone Sowmya, RN, Peg Demarco Unavailable Unavailable Elbert DORANTES, Speedy Bone Primary Care Provider [phone] Daysi DORANTES, Arlene Gee Unavailable Alex WOLFEN, Rizwana Woodson Unavailable Unavailable Alex CHAIREZ, Rizwana Woodson Unavailable Unavailable JUANCHO Deng, Peg Demarco Unavailable Unavailable JUANCHO Deng, Peg Demarco Unavailable Unavailable Speedy Mtz MD Unavailable Ariel DORANTES, Cary Woodson Unavailable Siders, Chey C Unavailable Unavailable Siders, Chey C Unavailable Unavailable Branden DORANTES, Lowell Gaines Unavailable JUANCHO Dneg, Peg Demarco Unavailable Unavailable Dr. Speedy Boswell [...] Provider Speedy Boswell MD Primary Care Provider Elbert, Dr. Ruff Primary Care Provider Dr. Speedy Boswell Referring Provider Bethany Deng Attending Provider Unavailable Hernando, Dr. Mazariegos Attending Provider Hernando, Dr. Mazariegos Referring Provider Hernando, Dr. Mazariegos Other Provider Alonzo ANIMAL GENETICIST, ANIMAL GENETICIST-C Jeffry Attending Provider Delilah Foster MD Unavailable Speedy Boswell MD Primary Care Provider DAVID RAMIREZ Attending Unavailable HERNANDO, DELILAH Referring Unavailable BOSWELL, SPEEDY Bone Primary Care Unavailable HOUMSSE MAHMOUD Attending Unavailable PACEMAKER [facility] Referring Un available SPEEDY BOSWELL Primary Care Unavailable BOSWELLSPEEDY MARSH Primary Care Unavailable JAMESDAVID LE Attending Unavailable JAMESDAVID LE Admitting Unavailable JAMESDAVID LE Attending Unavailable JAMESDAVID LE Admitting Unavailable BOSWELL, SPEEDY Bone Primary Care Unavailable Elbert, Dr. Ruff Primary Care Provider Hernando, Dr. Mazariegos Attending Provider Hernando, Dr. Mzaariegos Referring Provider Hernando, Dr. Mazariegos Other Provider Alonzo CONLEY, JHON Fuentes Attending Provider Dr. Speedy Boswell Referring Provider Bethany Deng Attending Provider Unavailable Dr. Speedy Boswell Primary Care Provider Dr. Ge Tomlinson Attending Provider Dr. Ge Tomlinson Referring Provider KEL NIELSEN Attending Unavailable SPEEDY BOSWELL Primary Care Unavailable KEL NIELSEN Attending Unavailable SPEEDY BOSWELL Primary Care Unavailable Speedy Boswell MD Primary Care Provider Elbert DORANTES, Dr. Ruff Primary Care Provider Bushra DORANTES, Dr. Carolina Attending Provider Bushra DORANTES, Dr. Carolina Referring Provider Elbert DORANTES, Dr. Ruff Referring Provider Hernando DORANTES, Dr. Mazariegos Attending Provider Nyla BURR, Dr. Cooper Emergency Provider Nyla BURR, Dr. Cooper Attending Provider Elbert DORANTES, Dr. Ruff Attending Provider Elbert DORANTES, Dr. Ruff Primary Care Provider Bushra DORANTES, Dr. Carolina Attending Provider Bushra DORANTES, Dr. Carolina Referring Provider Elbert DORANTES, Dr. Ruff Primary Care Provider Bushra DORANTES, Dr. Carolina Attending Provider Bushra DORANTES, Dr. Carolina Referring Provider Hernando DORANTES, Dr. Mazariegos Referring Provider Hernando DORANTES, Dr. Mazariegos Other Provider Elbert DORANTES, Dr. Ruff Primary Care Provider Bushra DORANTES, Dr. Carolina Attending Provider Bushra DORANTES, Dr. Carolina Referring Provider Jm Anguiano MD Attending Provider Speedy Boswell Attending Unavailable Boswell, Speedy Primary Care Unavailable Boswell, Speedy Referring Unavailable Hernando, Delilah Attending Unavailable Boswell, Speedy Referring Unavailable Boswell, Speedy Primary Care Unavailable Jm Anguiano Attending Unavailable Boswell, Speedy Referring Unavailable Boswell, Speedy Primary Care Unavailable Boswell, Speedy Primary Care Unavailable Serrano, Joce Attending Unavailable Boswell, Speedy Primary Care Unavailable Kenneth Redmond Attending Unavailable Boswell, Speedy Referring Unavailable Boswell, Speedy Attending Unavailable Boswell, Speedy Primary Care Unavailable Hernando, Delilah Attending Unavailable Hernando, Delilah Referring Unavailable Boswell, Speedy Primary Care Unavailable Boswell, Speedy Attending Unavailable Boswell, Speedy Referring Unavailable Boswell, Speedy Primary Care Unavailable Boswell, Speedy Primary Care Unavailable Boswell, Speedy Referring Unavailable Hernando, Delilah Attending Unavailable Bushra, Ge Referring Unavailable Bushra, Goodwin Attending Unavailable Boswell, Speedy Primary Care Unavailable Boswell, Speedy Primary Care Unavailable Boswell, Speedy Attending Unavailable Boswell, Speedy Referring Unavailable Boswell, Speedy Primary Care Unavailable Boswell, Speedy Attending Unavailable Boswell, Speedy Referring Unavailable Bushra, Ge Referring Unavailable Boswell, Speedy Primary Care Unavailable Bushra, Goodwin Attending Unavailable Boswell, Speedy Primary Care Unavailable Bushra, Goodwin Attending Unavailable Hernando, Delilah Consulting Unavailable Boswell, Speedy Primary Care Unavailable Hernando, Delilah Referring Unavailable Hernando, Delilah Attending Unavailable Bushra, Ge Referring Unavailable Boswell, Speedy Primary Care Unavailable Bushra, Goodwin Attending Unavailable Bushra, Ge Referring Unavailable Boswell, Sepedy Primary Care Unavailable Bushra, Ge Attending Unavailable Boswell, Speedy Primary Care Unavailable Bushra, Ge Referring Unavailable Bushra, Ge Attending Unavailable Boswell, Speedy Attending Unavailable Boswell, Speedy Primary Care Unavailable Boswell, Speedy Referring Unavailable Boswell, Speedy Primary Care Unavailable SerranoJoce Attending Unavailable Boswell, Speedy Primary Care Unavailable Manuel Hart Attending Unavailable Glory, Ravi Santiago Referring Unavailable Glory, Ravi Santiago Attending Unavailable Boswell, Speedy Primary Care Unavailable Medications Current Medications Medication Drug Class(es) Dates Sig (Normalized) Sig (Original) acetaminophen 500 mg oral tablet (19 sources) Start: 06-12-2024 End: 10-21-2024 take 2 [...] Start: 05-31-2021 take 2 tablets by mo [facility] every eight hours acetaminophen (TYLENOL) 500 MG [...] Loratadine (CLARITIN). desloratadine 5 mg oral tablet (8 sources) Histamine-1 Receptor Antagonist Start: 10-21-2024 take [...] 2019 8:40am finasteride 5 mg oral tablet (8 sources) 5-alpha Reductase Inhibitor Start: 10-21-2024 take 1 tablet by mouth once daily Finasteride 5 mg tablet Active 5 mg PO DAILY October 21, 2024 1:00am furosemide 40 mg oral tablet (20 sources) Loop Diuretic Start: 06-23-2025 take 1 tablet by mouth once daily Furosemide 40 mg tablet Active 40 mg PO daily 90 3 June 23, 2025 10:10am water retention Start: 05-24-2021 End: 05-26-2021 take 80 mg by mouth once daily 80 mg, Oral, NIGHTLY, F irst dose on Sat05/24/21 at 2100 Start: 08-20-2019 End: 06-23-2025 take 1 tablet by mouth twice daily Furosemide 40 mg tablet Discontinued 40 mg PO TWICE A DAY 180 October 19, 2024 9:35am June 23, 2025 10:10am water retention Start: 04-25-2019 take 2 tablets [...] 12:00am June 16, 2018 2:13pm diuretic Start: 12-28-2013 End: 01-10-2016 take 1 tablet by mouth at bedtime Furosemide 40 MG tablet Discontinued 40 mg PO AT BEDTIME April 05, 2015 12:00am January 07, 2016 1:53pm Start: 12-28-2013 take 2 tablets by mo ut twice daily LASIX 40 MG TABS Two tablets by mouth twice daily FUROSEMIDE [id number] Divina Giles PA-C Start: 10-05-2013 End: 01-07-2016 take 2 tablets by mouth once daily Furosemide 40 MG tablet Discontinued 80 mg PO DAILY October 05, 2013 1:00am January 07, 2016 1:53pm Start: 10-05-2013 End: 01-07-2016 take 80 mg by mouth once daily Furosemide Discontinued 80 MG PO DAILY October 05, 2013 1:00am January 07, 2016 1:53pm Start: 02-16-2011 End: 07-11-2018 take 1 tablet by mouth in the evening Furosemide 40 mg tablet Discontinued 40 mg PO .COMPLEX 270 3 June 16, 2018 2:14pm July 11, 2018 2:46pm diuretic 40 mg PO 2 tablets by mouth in the am and 1 tablet by mouth in the pm gabapentin 300 mg oral capsule (20 sources) [...] One tablet by mouth daily GABAPENTIN ENACARBIL [id number] Cary George MD Start: 05-04-2015 End: 01-10-2016 take 1 tablet by mouth once daily HORIZANT 600 MG CR-TABS One tablet by mouth daily GABAPENTIN KARENA [id number] Cary George MD 24 hr isosorbide mononitrate [...] once daily ISOSORBIDE MONONITRATE ER 60 MG [id number] One tablet by mouth daily ISOSORBIDE MONONITRATE [id number] Ge Tomlinson MD Start: 10-07-2013 End: 10-24-2015 take 1 tablet by mouth twice daily IMDUR 60 MG [id number] One tablet by mouth twice daily ISOSORBIDE MONONITRATE [id number] Ge Tomlinson MD Start: 10-07-2013 take 1 tablet by serafin th twice daily IMDUR 60 MG [id number] One tablet by mouth twice daily ISOSORBIDE MONONITRATE [id number] Speedy Mtz MD Start: 10-07-2013 take 1 tablet by serafin th twice daily IMDUR 60 MG [id number] One tablet by mouth twice daily ISOSORBIONA CHRISTINENITRATE Speedy Mtz MD Start: 10-07-2013 End: 10-24-2015 take 1 tablet by mouth twice daily IMDUR 60 MG [id number] One tablet by mouth twice daily ISOSORBIDE MONONITRATE Ge Tomlinson MD Start: 10-05-2013 End: 01-10-2016 take 1 tablet by mouth twice daily Isosorbide Mononitrate 60 MG tablet Discontinued 60 mg PO TWICE A DAY October 05, 2013 1:00am January 07, 2016 1:54pm Start: 08-27-2013 take 1 tablet by serafin th twice daily IMDUR 30 MG [id number] One tablet by mouth twice daily ISOSORBIDE MONONITRATE [id number] Speedy Mtz MD Start: 08-27-2013 take 1 tablet by serafin th twice daily IMDUR 30 MG [id number] One tablet by mouth twice daily ISOSORBIDE MONONITRATE [id number] Speedy Mtz MD Start: 08-27-2013 take 1 tablet by serafin th twice daily IMDUR 30 MG [id number] One tablet by mouth twice daily ISOSORBIDE MONONITRATE [id number] Speedy Mtz MD Start: 07-01-2013 take 1 tablet by serafin th once daily IMDUR 30 MG [id number] One tablet by mouth daily ISOSORBIDE MONONITRATE [id number] Divina Giles PA-C Start: 07-01-2013 take 1 tablet by serafin th once daily IMDUR 30 MG [id number] One tablet by mouth daily ISOSORBIDE MONONITRATE [id number] Diivna Giles PA-C Start: 07-01-2013 take 1 tablet by serafin th once daily IMDUR 30 MG [id number] One tablet by mouth daily ISOSORBIDE MONONITRATE [id number] Divina Giles PA-C LORazepam 0.5 mg oral [...] daily. 0 Active Multivitamin (Daily Multi-Vitamin) tablet (8 sources) Start: 4 Multivitamin (Daily Multi-Vitamin) tablet [...] hr Discontinued 1000 mg PO AT BEDTIME 31 10June 03, 2019 12:47pm September 21, 2020 3:07pm supplement/heart On Hold: financial concerns Start: 02-16-2011 End: 09-21-2020 take 1 tablet by mouth at bedtime Niacin 1,000 MG tablet Discontinued 1000 mg PO AT BEDTIME October 05, 2013 1:00am June 03, 2019 12:48pm potassium chloride 20 meq extended release oral tablet (20 sources) Start: 06-23-2025 take 1 tablet by mouth once daily Potassium Chloride 20 mEq tablet extended release Active 20 meq PO daily 180 3 June 23, 2025 10:08am supplement Start: 01-06-2024 End: 01-07-2024 Potassium chloride (K-DUR) t ablet ER 40-60 mEq Start: 01-06-2024 End: 01-07-2024 Potassium chloride (K-DUR) t ablet ER 20 mEq Start: 05-24-2021 40 mEq, Oral, DAILY, First dose on Sat05/24/21 at 0900 Do not crush, chew, or suck on tablet. Tablet may also be broken in half and each half swallowed separately. Start: 04-25-2019 take 2 tablets by [facility] once daily potassium chloride (KLOR-CON M) 20 MEQ extended release tablet Take 2 tablets by mouth daily 60 tablet 5 04/25/2019 Active Start: 01-08-2018 End: 06-23-2025 take 2 tablets by mouth once daily Potassium Chloride 20 mEq tablet extended release Discontinued 40 meq PO daily 180 3 February 23, 2025 8:08pm June 23, 2025 10:10am supplement Start: 01-08-2018 End: 08-09-2023 take 40 [...] 3:31pm Start: 12-10-2011 take 2 tablets by [facility] once daily KLOR-CON M20 20 MEQ CR-TABS Two tablets by mouth daily POTASSIUM CHLORIDE NISHANT CR [id number] Jay Singh INCOME TAX ADMINISTRATOR-C Start: 12-10-2011 take 1 tablet by serafin th once daily KLOR-CON M20 20 MEQ CR-TABS One tablet by mouth daily POTASSIUM CHLORIDE NISHANT CR [id number] Speedy Mtz MD Start: 02-16-2011 take 1 tablet by serafin th once daily POTASSIUM CHLORIDE 20 MEQ PACK One tablet by mouth daily POTASSIUM CHLORIDE [id number] Opal Lees Start: 02-16-2011 take 1 tablet by serafin th once daily KLOR-CON M20 20 MEQ CR-TABS One tablet by mouth daily POTASSIUM CHLORIDE NISHANT CR [id number] Speedy Mtz MD Start: 02-16-2011 take 1 tablet by serafin th once daily POTASSIUM CHLORIDE 20 MEQ PACK One tablet by mouth daily POTASSIUM CHLORIDE [id number] Opal Lees 12 hr ranolazine 500 mg [...] 21, 2020 3:07pm heart On Hold: [facility] Start: 02-24-2014 take 1 tablet by serafin th twice daily RANEXA 500 MG [id number] One tablet by mouth twice daily RANOLAZINE [id number] Divina Giles PA-C Start: 10-05-2013 End: 12-04-2013 take 1 tablet by mouth twice daily Ranolazine 500 MG tablet Discontinued 500 mg PO TWICE A DAY October 05, 2013 1:00am December 04, 2013 1:34am Start: 06-17-2013 End: 10-28-2013 take 1 tablet by mouth twice daily RANEXA 500 MG [id number] One tablet by mouth twice daily RANOLAZINE [id number] JANICE AntonC sennosides, [facility] 8.6 mg oral tablet (4 sources) Start: 05-31-2021 End: 06-30-2021 take 2 tablets by mouth twice daily senna (SENOKOT) 8.6 MG tablet Take 2 tablets by mouth 2 times daily 120 tablet 0 05/31/2021 06/30/2021 Active Start: 05-28-2021 End: 05-29-2021 senna (SENOKOT) tablet 17.2 mg Start: 05-24-2021 End: 05-28-2021 senna (SENOKOT) tablet 8.6 m g spironolactone 25 mg oral tablet (1 source) Aldosterone Antagonist Start: 06-23-2025 take 1 tablet by mouth once daily Spironolactone 25 mg tablet Active 25 mg PO DAILY 28 02June 23, 2025 12:00am temazepam 15 mg oral capsule (20 sources) [...] Start: 01-11-2016 take 1 tablet by serafin th once daily RESTORIL 30 MG CAPS One tablet by mouth daily every night TEMAZEPAM [id number] Arlene Tavarez MD Start: 07-16-2014 End: 01-10-2016 take 1 tablet by mouth once daily at bedtime as needed TEMAZEPAM 15 MG CAPS One tablet by mouth daily at bedtime as needed TEMAZEPAM [id number] Val Henley RN traZODone hydrochloride 50 mg oral tablet (19 sources) Serotonin Reuptake Inhibitor Start: 03-22-2021 End: [...] TABLET PO EVERY 6 HOURS NEEDED 10 3 October 02, 2018 12:00am October 05, 2018 12:14am Start: 02-16-2011 VICODIN 5-500 MG TABS As needed HYDROCODONE-ACETAMINOPHEN [id number] Opal Lees Start: 02-16-2011 End: 12-10-2011 VICODIN 5-500 MG TABS As nee ded HYDROCODONE-ACETAMINOPHEN [id number] Khris Spencer MD Start: 02-16-2011 VICODIN 5-500 MG TABS As needed HYDROCODONE-ACETAMINOPHEN [id number] Opal Lees Start: 02-16-2011 End: 12-10-2011 VICODIN 5-500 MG TABS As nee ded HYDROCODONE-ACETAMINOPHEN [id number] Khris Spencer MD acetaminophen 325 mg / oxyCODONE hydrochloride 5 mg oral tablet (8 sources) Opioid Agonist Start: 10-21-2024 End: 05-09-2025 [...] mg / clavulanate 125 mg oral tablet (17 sources) Penicillin-class Antibacterial Start: 05-28-2017 End: 06-10-2017 take 1 tablet by mouth every twelve hours Amoxicillin-Pot Clavulanate 875 MG tablet Discontinued 875 mg PO Q12H 10 0 May 28, 2017 12:00am June 10, 2017 10:49am aspirin 81 mg chewable tablet (20 sources) Platelet Aggregation Inhibitor, Nonsteroidal Anti-inflammatory Drug Start: 05-24-2021 aspirin EC tablet 81 mg Start: 06-19-2017 take 1 tablet by serafin th once daily ADULT ASPIRIN EC LOW STRENGTH 81 MG TBEC One tablet by mouth daily ASPIRIN [id number] Cary George MD Start: 06-09-2017 End: 10-21-2024 [...] TBEC One tablet by mouth daily ASPIRIN [id number] Cary George MD Start: 02-16-2011 take 1 tablet by serafin th once daily ASPIRIN 325 MG TABS One tablet by mouth daily ASPIRIN [id number] Opal Lees aspirin 81 MG ta blet [...] MCG/ACT SUSP (0.032mg/inh) Take as directed BUDESONIDE [id number] Opal Lees 12 hr buPROPion hydrochloride 150 mg extended release oral tablet (19 sources) Aminoketone Start: 01-08-2018 End: 05-27-2024 take [...] COREG 12.5 MG TABS twice daily CARVEDILOL [id number] Екатерина Griggs RN Start: 02-16-2011 End: 01-10-2016 [...] at 0700 ciprofloxacin 500 mg oral tablet (20 sources) Quinolone Antimicrobial Start: 11-18-2024 End: 05-03-2025 take 1 tablet by mouth twice daily Ciprofloxacin Hcl (Cipro) 500 mg tablet Discontinued 500 mg PO TWICE A DAY 10 November 18, 2024 1:00am May 03, 2025 2:11pm Start: 08-05-2019 End: 09-02-2019 take 1 tablet by mouth twice daily Ciprofloxacin Hcl 500 MG tablet Discontinued 500 mg PO TWICE A DAY 6 0 August 05, 2019 12:00am September 02, 2019 2:02pm citalopram 10 mg oral tablet (20 sources) Serotonin Reuptake Inhibitor Start: 07-16-2014 End: 01-10-2016 take 1 tablet by mouth once daily CITALOPRAM HYDROBROMIDE 10 MG TABS One tablet by mouth daily CITALOPRAM HYDROBROMIDE [id number] Val Henley RN clindamycin 150 mg oral capsule (17 sources) Lincosamide Antibacterial Start: 02-12-2019 End: 04-14-2019 [...] 10 MG TROC 5 x day CLOTRIMAZOLE [id number] Wilda Wise clotrimazole (LO TRIMIN) 1 % cream Apply topically as needed Apply topically 2 times daily. 0 Active dapagliflozin 10 mg oral tablet (20 sources) Sodium-Glucose Cotransporter 2 Inhibitor Start: 05-21-2024 End: 12-10-2024 take 1 tablet by mouth once daily Dapagliflozin Propanediol (Farxiga) 10 mg tablet Discontinued 10 mg PO DAILY 31 10September 21, 2024 2:57pm December 10, 2024 11:32am [...] twice daily for 10 days DOXYCYCLINE HYCLATE [id number] Jeffry Larsen CNP 0.4 ml enoxaparin sodium [...] One tablet by mouth daily ESOMEPRAZOLE MAGNESIUM [id number] Opal Lees etodolac 400 mg oral tablet (20 sources) Nonsteroidal Anti-inflammatory Drug Start: 07-16-2014 End: 01-10-2016 take 1 tablet by mouth twice daily as needed ETODOLAC 400 MG TABS One tablet by mouth twice daily as needed ETODOLAC [id number] Val Henley RN fexofenadine hydrochloride 180 mg oral tablet (11 sources) Histamine-1 Receptor Antagonist Start: 03-27-2023 End: 10-21-2024 take 1 tablet by mouth once daily Fexofenadine ([facility] All[facility]) 180 mg tablet Discontinued 180 mg PO DAILY March 27, 2023 12:00am October 21, 2024 1:26am fluconazole 200 mg oral tablet (16 sources) Azole Antifungal Start: 01-11-2016 End: 01-16-2016 take 1 tablet by mouth once daily FLUCONAZOLE 200 MG TABS 1 po q d FLUCONAZOLE [id number] Arlene Tavarez MD 1 ml HYDROmorphone hydrochloride [...] MD Start: 12-10-2011 take 1 tablet by [facility] once daily KLOR-CON 20 CR-TABS (POTASSIUM CHLORIDE CR-TABS) One tablet by mouth daily Speedy Mtz MD levocetirizine dihydrochloride 5 mg oral tablet (9 sources) Histamine-1 Receptor Antagonist Start: 06-19-2017 take 1 tablet by mouth once daily LEVOCETIRIZINE DIHYDROCHLORIDE 5 MG TABS One tablet by mouth daily LEVOCETIRIZINE DIHYDROCHLORIDE [id number] Cary George MD levoFLOXacin 500 mg oral tablet (16 sources) Quinolone Antimicrobial Start: 01-07-2016 End: 01-14-2016 take 1 tablet by mouth once daily LEVAQUIN 500 MG TABS One tablet by mouth daily LEVOFLOXACIN [id number] Wilda Wise 10 ml lidocaine hydrochloride 10 mg/ml [...] One tablet by mouth daily MULTIPLE VITAMIN [id number] Opal Lees MULTIPLE VITAMIN (15 sources) Start: 02-16-2011 take 1 tablet by mouth once daily MULTIVITAMINS TABS One tablet by mouth daily MULTIPLE VITAMIN [id number] Opal Lees naproxen 500 mg oral tablet (20 sources) Nonsteroidal Anti-inflammatory Drug Start: 02-16-2011 End: 07-16-2014 take 1 tablet by mouth twice daily NAPROXEN 500 MG TABS One tablet by mouth twice daily NAPROXEN [id number] Opal Lees 24 hr nicotine 0.583 mg/hr transdermal system (20 sources) Cholinergic Nicotinic Agonist Start: 12-14-2016 End: 06-19-2017 NICODERM CQ 14 MG/24HR PT24 Apply once a day for 2 weeks or as directed NICOTINE [id number] Cary George MD nitroglycerin 0.4 mg sublingual [...] 3 as needed for chest pain. NITROGLYCERIN [id number] Ginny Alanis RN nystatin 751728 unt/ml oral suspension (20 sources) Polyene Antifungal Start: 06-19-2017 End: 01-08-2018 take [id number] [IU] by mouth three times daily Nystatin 100,000 UNIT/ML suspension Discontinued 802410 U PO THREE TIMES A DAY July 30, 2017 12:00am January 08, 2018 3:34pm Start: 01-07-2016 End: 06-01-2016 NYSTATIN 265935 UNIT/GM POWD three times a day NYSTATIN [id number] Wilda Evanslashabnam Start: 01-07-2016 End: 06-01-2016 NYSTATIN 124831 UNIT/GM POWD three times a day NYSTATIN 72867062047 Wilda Wise omeprazole 40 mg delayed release oral capsule (20 sources) Proton Pump Inhibitor Start: 10-21-2012 End: 01-10-2016 take 1 tablet by mouth once daily OMEPRAZOLE 40 MG CPDR One tablet by mouth daily OMEPRAZOLE [id number] Wilda Wise Start: 05-03-2011 take 1 tablet by serafin th once daily OMEPRAZOLE 20 MG CPDR One tablet by mouth daily OMEPRAZOLE [id number] Opal Lees Start: 02-16-2011 End: 01-08-2018 take 1 capsule by mouth twice daily Omeprazole 40 MG capsule Discontinued 40 mg PO TWICE A DAY October 05, 2013 1:00am January 08, 2018 12:09pm 2 ml ondansetron 2 mg/ml injection (19 sources) Serotonin-3 Receptor Antagonist Start: 01-06-2024 End: [...] HOURS NEEDED as needed for Severe Pain (6-09/10) 30 5 0 February 06, 2019 1:00am [...] tablet by mouth twice daily PANTOPRAZOLE SODIUM [id number] Cary George MD take 40 mg by mouth once daily before breakfast pantoprazole sodium (PROTONIX) 40 MG PACK packet Take 40 mg by mouth every morning (before breakfast) 0 Active 2 ml penicillin g benzathine 629436 unt/ml / penicillin g procaine 434376 unt/ml prefilled syringe (17 sources) Penicillin-class Antibacterial Start: 07-11-2018 End: 04-14-2019 Penicillin G Benzathin,Procain 1,200,000 UNIT/2 ML syringe Discontinued [id number] U IM EVERY MONTH July 11, 2018 12:00am April 14, 2019 8:42am infection polyethylene glycol 3350 81781 mg powder for oral solution (20 sources) [...] mouth twice daily (0.25) POLYETHYLENE GLYCOL 3350 [id number] Opal Lees Start: 02-16-2011 End: 12-10-2011 take 1 tablet by mouth twice daily MIRALAX PACK One tablet by mouth twice daily (0.25) POLYETHYLENE GLYCOL 3350 [id number] Khris Spencer MD Start: 02-16-2011 take 1 tablet by serafin th twice daily MIRALAX PACK One tablet by mouth twice daily (0.25) POLYETHYLENE GLYCOL 3350 [id number] Opal Lees Start: 02-16-2011 End: 12-10-2011 take 1 tablet by mouth twice daily MIRALAX PACK One tablet by mouth twice daily (0.25) POLYETHYLENE GLYCOL 3350 [id number] Khris Spencer MD POLYETHYLENE GLYCOL 3350 (2 sources) Start: 02-16-2011 End: 12-10-2011 take 1 tablet by mouth twice daily MIRALAX PACK One tablet by mouth twice daily (0.25) POLYETHYLENE GLYCOL 3350 [id number] Khris Spencre MD Start: 02-16-2011 take 1 tablet by serafin th twice daily MIRALAX PACK One tablet by mouth twice daily (0.25) POLYETHYLENE GLYCOL 3350 [id number] Opal Lees pramipexole dihydrochloride 0.5 mg oral tablet (20 sources) Nonergot Dopamine Agonist Start: 12-10-2011 End: 05-04-2015 take 2 tablets by mouth at bedtime MIRAPEX 0.125 MG TABS 2 tablets by mouth at bedtime PRAMIPEXOLE DIHYDROCHLORIDE [id number] Speedy Mtz MD Start: 12-10-2011 take 1 tablet by serafin th at bedtime MIRAPEX 0.5 MG TABS One tablet by mouth at bedtime. PRAMIPEXOLE DIHYDROCHLORIDE [id number] Khris Spencer MD predniSONE 20 mg oral tablet (20 sources) Start: 06-29-2024 End: 11-04-2024 take 2 tablets by mouth once daily Prednisone 20 mg tablet Discontinued 40 mg PO DAILY 8 0 June 29, 2024 12:00am November 04, 2024 3:36pm Start: 10-27-2022 End: 05-27-2024 take 2 tablets by mouth once daily Prednisone 20 mg tablet Discontinued 40 mg PO DAILY 10 5 October 27, 2022 1:00am May 27, 2024 [...] mg capsule Discontinued 10 mg PO DAILY 90 4 April 06, 2024 8:40am April 15, 2025 [...] 06-19-2017 ALTACE 2.5 MG CAPS .11 RAMIPRIL [id number] Cary George MD Start: 01-07-2014 End: 01-08-2018 take 1 capsule by mouth once daily Ramipril 5 MG capsule Discontinued 5 mg PO DAILY 30 0 January 07, 2016 1:00am January 08, 2018 3:35pm Start: 01-07-2014 ALTACE 5 MG CA PS on hold 04/29 RAMIPRIL [id number] Екатерина Griggs RN Start: 01-07-2014 take 1 tablet by serafin th twice daily ALTACE 10 MG CAPS One tablet by mouth twice daily RAMIPRIL [id number] Ginny Alanis RN Start: 01-07-2014 take 1 tablet by serafin th once daily ALTACE 2.5 MG CAPS One tablet by mouth daily RAMIPRIL [id number] Divina Giles PA-C Start: 10-05-2013 End: 01-07-2016 [...] One tablet by mouth twice daily RAMIPRIL [id number] Val Henley RN silodosin 8 mg oral capsule (20 sources) alpha-Adrenergic Sasha Start: 11-06-2013 End: 01-10-2015 take 1 tablet by mouth at bedtime RAPAFLO 8 MG CAPS One tablet by mouth at bedtime. SILODOSIN [id number] Speedy Mtz MD 1000 ml sodium chloride [...] George MD sucralfate 1000 mg oral tablet (17 sources) Aluminum Complex Start: 07-02-2017 End: 01-08-2018 [...] One tablet by mouth daily TAMSULOSIN HCL [id number] Speedy Mtz MD triamcinolone acetonide 0.055 mg/actuat metered dose nasal spray (20 sources) Corticosteroid Start: 10-30-2012 End: 01-10-2016 take 2 spray(s) nasal route once daily NASACORT AQ 55 MCG/ACT AERO two sprays in each nostril once a day TRIAMCINOLONE ACETONIDE [id number] Wilda Wise Start: 10-30-2012 take 2 spray(s) nasa l route once daily NASACORT AQ 55 MCG/ACT AERS two sprays in each nostril once a day TRIAMCINOLONE ACETONIDE [id number] Peg Deng RN Start: 10-30-2012 take 2 spray(s) nasa l route once daily NASACORT AQ 55 MCG/ACT AERS two sprays in each nostril once a day TRIAMCINOLONE ACETONIDE [id number] Val Henley RN Start: 10-30-2012 End: 01-10-2016 take 2 spray(s) nasal route once daily NASACORT AQ 55 MCG/ACT AERS two sprays in each nostril once a day TRIAMCINOLONE ACETONIDE [id number] Wilda Wise Vancomycin HCl in NaCl (Vancocin) [...] Problem Date Documented Date Episodic/Chronic Abdominal pain (17 sources) Left flank pain; Translations: [Unspecified abdominal pain] 01-24-2022 Episodic Acute 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 (20 sources) ST elevation (STEMI) 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 involving other coronary artery of anterior wall; Translations: [Acute 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 of other anterior wall, subsequent episode of care] Onset: 02-16-2011 Resolved: 06-01-2016 02-16-2011 Chronic Calculus of urinary tract (20 sources) 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; Translations: [Calculus of kidney] Onset: 01-11-2025 02-18-2021 Episodic Cardiac dysrhythmias (2 sources) Palpitations; Translations: [Palpitations] Onset: 11-21-2023 Episodic Chronic obstructive pulmonary disease and bronchiectasis (17 sources) Bronchitis; Translations: [Bronchitis, not specified as [...] Coronary atherosclerosis; Translations: [Atherosclerotic heart disease of [place] coronary artery without angina pectoris] Onset: 02-16-2011 Resolved: 11-30-2016 11-30-2016 Chronic Comment on above: 2005 CABG x2- PARK to LAD , SARIAH to OM 06/01/05; PTCA/stent to prox LAD 02/02/05; PTCA/stent instent restenosis of prox LAD 10/15/13 EF 45%. Stage I chiu tolic dysfunction Coronary atherosclerosis and other heart disease (20 sources) History of 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; Translations: [Presence of aortocoronary bypass graft] Onset: 06-01-2005 02-16-2011 Episodic Comment on above: PTCA/stent to prox L AD 02/02/05; PTCA/stent instent restenosis of prox LAD 10/15/13 Diabetes mellitus without complication (1 source) Type 2 diabetes mellitus without complications; Translations: [Type 2 diabetes mellitus without complications] Onset: 06-10-2025 Chronic Diabetes mellitus without complication (8 sources) Hyperglycemia; Translations: [Hyperglycemia, unspecified] 05-21-2024 Episodic Disorders of lipid metabolism (20 sources) Hyperlipidemia; Translations: [Hyperlipidemia, unspecified] Onset: 02-16-2011 02-16-2011 Chronic E Codes: Fall (17 sources) Fall; Translations: [Unspecified fall, initial encounter] [...] Episodic Immunizations and screening for infectious disease (17 sources) Suspected disease caused by 2019-nCoV; Translations: [Suspected 2019-nCoV infection] 07-18-2020 Episodic Malaise and fatigue (20 sources) Malaise and fatigue; Translations: [Other malaise and fatigue] Onset: 01-10-2015 01-10-2015 Episodic Noninfectious gastroenteritis (17 sources) Gastroenteritis; Translations: [Noninfective gastroenteritis and colitis, unspecified] 04-21-2019 Episodic Nonspecific chest pain (20 sources) Chest pain; Translations: [Chest pain, unspecified] Onset: 05-18-2025 02-18-2021 Episodic Osteoarthritis (18 sources) Osteoarthritis of left hip joint; Translations: [Unilateral primary osteoarthritis, left hip] Onset: 10-05-2015 10-05-2015 Chronic Other aftercare (9 sources) Patient encounter status; Translations: [Other nursing home (current) drug therapy] 04-21-2019 Episodic Other aftercare (8 sources) Long-term current use of drug therapy; Translations: [Other nursing home (current) drug therapy] 01-08-2018 Episodic Other bone disease and musculoskeletal deformities (6 sources) History of amputation of right leg through femur; Translations: [Acquired absence of right leg above knee] Onset: 04-23-2019 04-25-2019 Chronic Other connective tissue disease (17 sources) Neurological symptom; Translations: [Unspecified symptoms and signs involving the nervous system] 02-18-2021 Episodic Other connective tissue disease (14 sources) Lateral epicondylitis of left humerus; Translations: [Lateral epicondylitis, left elbow] 08-09-2022 Episodic Other connective tissue disease (2 sources) Lateral epicondylitis, left elbow; Translations: [Lateral epicondylitis] Episodic Other connective tissue disease (8 sources) Prepatellar bursitis of left knee; Translations: [Prepatellar bursitis, left knee] 07-07-2024 Episodic Other connective tissue disease (1 source) Radial styloid tenosynovitis; Translations: [Radial styloid tenosynovitis [de Quervain]] 06-24-2025 Episodic Other connective tissue disease (1 source) Radial styloid tenosynovitis [de Quervain]; Translations: [Radial styloid tenosynovitis [de Quervain]] Onset: 06-24-2025 Episodic Other diseases of kidney and ureters (8 sources) Small left kidney; Translations: [Small kidney, unilateral] 11-18-2024 Episodic Other diseases of veins and lymphatics (18 sources) Lymphedema, not elsewhere classified; Translations: [Lymphedema of lower extremity] Onset: 08-06-2013 04-03-2017 Chronic Other diseases of veins and lymphatics (18 sources) Lymphedema of right lower limb; Translations: [...] injuries and conditions due to external causes (17 sources) Foreign body in esophagus; Translations: [Unspecified foreign body in esophagus causing other injury, initial encounter] 05-09-2021 Episodic Other injuries and conditions due to external causes (9 sources) Radiation injury; Translations: [Radiation sickness, unspecified, initial encounter] 04-21-2019 Episodic Other injuries and conditions due to external causes (17 sources) Systemic inflammatory response syndrome; Translations: [Systemic inflammatory response syndrome (SIRS) of non-infectious origin without acute organ dysfunction] 04-21-2019 Episodic Other injuries and conditions due to external causes (8 sources) Injury by causative force; Translations: [Radiation sickness, unspecified, initial encounter] 01-08-2018 Episodic Comment on above: late effect radiatio n right lower extremity Other lower respiratory disease (20 sources) Dyspnea; Translations: [Shortness of breath] Onset: 07-01-2013 07-01-2013 Episodic Other lower respiratory disease (13 sources) Wheezing; Translations: [Wheezing] 11-04-2022 Episodic Other nervous system disorders (17 sources) Paresthesia of left upper limb; Translations: [Paresthesia of skin] 02-18-2021 Episodic Other non-traumatic joint disorders (14 sources) Pain in elbow; Translations: [Pain in [...] Chronic Other nutritional; endocrine; and metabolic disorders (20 sources) Body mass index 40+ - severely obese; Translations: [Morbid (severe) obesity due to excess calories] 04-21-2019 Chronic Other nutritional; endocrine; and metabolic disorders (20 sources) Body mass index 30+ - obesity; [...] Spondylosis; intervertebral disc disorders; other back problems (8 sources) Low back pain; Translations: [Low back pain] 11-03-2024 Episodic Superficial injury; contusion (8 sources) Contusion of right shoulder; Translations: [Contusion of right shoulder, initial encounter] 07-07-2024 Episodic Unclassified (2 sources) Disorder of cardiovascular system; Translations: [Unspecified disorder of circulatory system] Onset: 02-16-2011 Resolved: 06-01-2016 02-16-2011 Chronic Unclassified (1 source) Implantation of automatic cardiac defibrillator ; Translations: [Presence of automatic (implantable) cardiac defibrillator] Onset: 02-16-2011 02-16-2011 Unclassified (1 source) Long-term drug therapy; Translations: [Other brick tosser (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) drug 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] Onset: 02-16-2011 02-16-2011 Unclassified (1 source) Aftercare ; Translations: [Encounter for other specified surgical aftercare] Onset: 06-05-2017 07-07-2017 Unclassified (1 source) Low back pain, unspecified; Translations: [Low back pain, unspecified] Onset: 01-11-2025 Viral infection (17 sources) Disease caused by 2019-nCoV; Translations: [COVID-19] [...] 04-25-2019 04-25-2019 Episodic Congestive heart failure; nonhypertensive (17 sources) Congestive heart failure; nonhypertensive 04-21-2019 Neoplasms of unspecified nature or uncertain behavior (20 sources) Neoplasm of soft tissue; 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] Onset: 05-15-2017 05-18-2017 Episodic Open wounds of extremities (16 sources) Open wound of foot except toes with complication; Translations: [Laceration with foreign body, unspecified foot, initial encounter] Onset: 01-11-2016 01-12-2016 Episodic Other aftercare (15 sources) Long-term drug therapy; Translations: [Other brick tosser (current) drug therapy] Onset: 02-16-2011 02-16-2011 Episodic [...] examination] Onset: 02-16-2011 Resolved: 06-01-2016 02-16-2011 Unclassified (17 sources) Lymphedema of Right Leg 04-21-2019 Unclassified (17 sources) Age more than 65 years; Translations: [Over 65 years old] 12-14-2021 Unclassified (8 sources) Abrasion, left knee, initial encounter 07-07-2024 Results Test Name Value Interpretation Reference Range Facility Orthopedic Visit Reporton Orthopedic Visit Report [facility] [address] [place] [id number] OFFICE VISIT Date of Service: 06/24/25 MR#: [id number] Acct: [id number] Name: ALBIN ISSA Rep #: [id number] : 1955 Provider: Dr. Jm adkins MD Age/Sex: 70/M Location: [facility] [place] Status: Signed with Addenda ADDENDUM by JOSE Thompson on 06/24/25 at 1539 Office Procedure Documentation entered by Kelly Thompson MA 06/24/25 15:39: Ortho Injections Injections Is this a patient provided medication?: No Details: Obtained consent for injection. Under sterile conditions, injected the patients bilateral wrist with 0.5cc and 1cc Bupivacaine x2. The patient tolerated the injection well without any noted co mplication. Patient should call our office if redness develops, pain worsens or if they have any concerns. Office Meds Kenalog 40 mg/mL suspension for injection Performing Provider: Jm Anguiano MD Performing Location: [facility] Administered by: mJ Anguiano MD on 06/24/25 15:37 Dose Route Admin Location Dispensed Lot Number Expiration Date NDC Man ufacturer 40 mg intra-articular Bilateral wrist 1 mL [id number] 07/02/27 0486-8201-90 [facility] [place] [facility] Date cc: * Signed Intake Vital Signs 05/09/25 00:02 Height 5 ft 7 in Intake Visit Reasons: BILATERAL WRISTS Chief Complaint: Bilateral Wrist Pain Accompanied by: Self Is patient in pain?: Yes (Left is worse (with brace) - 6 Right - 4 ) Allergies No Known Allergies Allergy (Verified 06/24/25 14:43) Medications ???Medication ???Instructions ???Recorded ???Confirmed ???Type aspirin 81 mg chewable tablet 81 mg PO QHS Heart health 06/09/17 06/24/25 History gabapentin 300 mg capsule 300 mg PO QHS Rls 09/21/20 5 History temazepam 15 mg capsule 15 mg PO QHS PRN Sleep 09/21/20 History trazodone 50 mg tablet 50 mg PO QHS sleep 03/22/21 History escitalopram oxalate 20 mg tablet 20 mg PO DAILY 08/20/22 06/24/25 History multivitamin (Daily Multi-Vitamin 1 tab PO DAILY 05/27/24 06/24/25 History tablet) pantoprazole 40 mg tablet,delayed 40 mg PO DAILY gerd #90 tabs 1012/2506/24/25 Rx release clopidogrel 75 mg tablet (Plavix) 75 mg PO DAILY blood clots #90 ta bs 10/12/24 06/24/25 Rx acetaminophen 500 mg tablet 1,000 mg PO Q8 PRN fever or pain 1 12/21/23 06/24/25 History desloratadine 5 mg tablet 5 mg PO DAILY PRN allergy symptoms 10/21/24 06/24/25 History finasteride 5 mg tablet 5 mg PO DAILY 10/21/24 06/24/25 Hi story dapagliflozin propanediol 10 mg 10 mg PO DAILY #90 tabs 12/10/24 0 06/24/25 Rx tablet (Farxiga) carvedilol 25 mg tablet 25 mg PO BID heart #180 tabs 12/2506/24/25 Rx ramipril 10 mg capsule 10 mg PO DAILY #90 caps 04/15/25 0 06/24/25 Rx atorvastatin 40 mg tablet (Lipitor) 40 mg PO QDAY #90 tabs 05/03/25 06/24/25 Rx isosorbide mononitrate 60 mg 60 mg PO QDAY blood pressure #90 0 05/03/25 06/24/25 Rx tablet,extended release 24 hr tabs furosemide 40 mg tablet 40 mg PO QDAY #90 tabs 06/23/25 Rx potassium chloride 20 mEq 20 meq PO QDAY supplement #180 tab s 06/23/25 06/24/25 Rx tablet,extended release spironolactone 25 mg tablet 25 mg PO DAILY #30 tabs 06/23/25 0 06/24/25 Rx Have you fallen in the past year?: No PFSH Medical History Coronary atherosclerosis of bypass [...] (gastroesophageal reflux disease) Atherosclerotic heart disease of [place] coronary artery without angina pectoris Shortness of breath History of 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 Normal [facility] Echocardiogram study reportO rdered By: Delilah Foster on 06-14-2025 Study report [facility] [address] [place] [address] Echo Complete W/ Contrast 06/10/25 0928 MR#: [id number] Acct: [id number] Name: ALBIN ISSA Rep #:[id number] : 1955 70 From: Delilah Foster MD Attending Dr: Dr. Delilah Foster MD Status: REG CLI Ordering Dr: Delilah Foster MD Date: Location: [facility] Sex: M C Admitted: Reason For Study Reason For Study: CAD/ASHD Procedure This was a 2D Doppler, Color Flow transthoracic echocardiogram. The study was technically difficult. Contrast injection was performed. Exam performed in department. Left Ventricle Normal size and thickness. Apical akinesis. Posterior basal hypokinesis. Estimated LVEF 35%. Stage I diastolic dysfunction. Right Ventricle Normal right ventricle. Atria The left and right atria are normal. Mitral Valve Trivial mitral valve insufficiency. Tricuspid Valve The tricuspid valve is not well visualized. Aortic Valve The aortic valve is not well visualized. There is no aortic stenosis. Pulmonic Valve The pulmonic valve is not well visualized. Great Vessels The aortic root is not well visualized. Pericardium/Pleural No pericardial effusion. Medication Diluted definity 2ml given slow IV push to enhance endocardial definition. MMode/2D Measurements & Calculations LAV(MOD-sp4): 34.4 ml SV(MOD-sp4): 49.9 ml LVAd ap4: 42.5 cm2 LVLd ap4: 9.7 cm SI(MOD-sp4): 20.9 ml/m2 EDV(MOD-sp4): 152.0 ml EDV(sp4-el): 157.4 ml LVAs ap4: 33.9 cm2 LVLs ap4: 9.2 cm ESV(MOD-sp4): 102.1 ml ESV(sp4-el): 106.4 ml EF(MOD-sp4): 32.8 % EF(sp4-el): 32.4 % ___ SV(sp4-el): 50.9 ml LA A4 area: 14.5 cm2 RAA4 area: 16.0 cm2 Time Measurements MV dec time: 0.35 sec Doppler Measurements & Calculations MV E max bozena: 46.9 cm/sec Lat Peak E' Bozena: 8.7 cm/sec Med Peak E' Bozena: 6.0 cm/sec MV A max bozena: 67.9 cm/sec E/E' lat: 5.4 E/E' med: 7.8 MV E/A: 0.69 MV V2 max: 78.0 cm/sec MV dec slope: 136.0 cm/sec2 Ao V2 max: 114.1 cm/sec MV max P.4 mmHg Ao max P.2 mmHg MV V2 mean: 45.7 cm/sec Ao V2 mean: 79.8 cm/sec MV mean P.95 mmHg Ao mean P.9 mmHg MV V2 VTI: 37.8 cm Ao V2 VTI: 23.0 cm AV (velocity ratio): 1.1 LV V1 max: 108.3 cm/sec PA V2 max: 109.5 cm/sec LV V1 max P.7 mmHg LV V1 mean P.0 mmHg LV V1 mean: 81.8 cm/sec LV V1 VTI: 25.9 cm ECHO/Echo Complete W/ Contrast Interpretation Summary Technically difficult study with suboptimal images. Apical akinesis. Posterior basal hypokinesis. Estimated LVEF 35%. Stage I diastolic dysfunction. Ordering Physician: Delilah Foster Referring Physician: Delilah Foster Performed By: Sarah Lopez RCS 06/14/25 1208 Date _ Delilah Foster MD CC: Dr. Delilah Foster MD; Dr. 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 Speedy Boswell MD Status : REG CLI Referring Dr: Delilah Foster MD Sex: M C Stress Test Report Date: 06/10/2025 Procedure: Pharmacologic stress nuclear imaging study Indications: CAD Consent: Per the patient Procedure: The patient underwent pharmacologic (Regadenoson 0.4mg ) evaluation with a peak heart rate of 76 beats per minute (50%predicted maximal heart rate) and a peak blood pressure of 142/62 mmHg. The baseline ECG demonstrated sinus rhythm. The peak pharmacologic ECG did not show any ischemic changes. There were no cardiac dysrhythmias pretest, during pharmacologic infusion, or recovery. There was no complaint of chest discomfort during pharmacologic infusion or recovery. The patient was injected with 15.0 millicuries of technetium 99m Cardiolite and subsequently rest SPECT Cardiolite nuclear imaging was obtained in the horizontal long, vertical long, and short axis views. The patient underwent pharmacologic (Regadenoson) evaluation. The patient was injected with 44.7 millicuries of technetium 99m Cardiolite and subsequently stress SPECT Cardiolite nuclear imaging was obtained in the horizontal long, vertical long, and short axis views. A gated Cardiolite study at peak stress was obtained. The examination was stopped secondary to completion of protocol. Rest and stress SPECT Cardiolite nuclear imaging status post realignment, normalization, and attenuation correction demonstrate large fixed apical perfusion defect suggestive of prior transmural infarct with no significant amna-infarct ischemia. The gated study reveals apical akinesis. The reported LVEF is 43%. Impression: 1. Pharmacologic (Regadenoson) evaluation 2. Peak pharmacologic ECG with no diagnostic ischemic changes. 3. There were no cardiac dysrhythmias pretest, during pharmacologic infusion, or recovery. 5. Large fixed apical perfusion defect suggestive of prior transmural infarct with no significant amna-infarct ischemia. 6. The gated Cardiolite study reports an LVEF of 43%. This note was generated with Cinemagramation software. It may contain incorrectwords, spelling, and punctuation that were not noted in checking the note beforesigning. 06/10/25 1123 Date _ Delilah Foster MD CC: Dr. Delilah Foster MD; Dr. Speedy Boswell MD ~ Date Dictated: 06/10/25 112 Date Transcribed: 06/10/251120 Ground Support Equipment Mechanic: SON Mcgarry [facility] Work Phone: Echo Complete W/ Contraston 06-10-2025 Echo Complete W/ Contrast [facility] [address] [facility] [place] [address] Echo Complete W/ Contrast 06/10/2528 MR#: [id number] Acct: [id number] Name: ALBIN ISSA Rep #: [id number] : 1955 70 From: Delilah Foster MD Attending Dr: Dr. Delilah Foster MD Status: REG CLI Ordering Dr: Delilah Foster MD Date: 06/10/25 Location: [facility] Sex: M C Admitted: Reason For Study Reason For Study: CAD/ASHD Procedure This was a 2D Doppler, Color Flow transthoracic echocardiogram. The study was technically difficult. Contrast injection was performed. Exam performed in department. Left Ventricle Normal size and thickness. Apical akinesis. Posterior basal hypokinesis. Estimated LVEF 35%. Stage I diastolic dysfunction. Right Ventricle Normal right ventricle. Atria The left and right atria are normal. Mitral Valve Trivial mitral valve insufficiency. Tricuspid Valve The tricuspid valve is not well visualized. Aortic Valve The aortic valve is not well visualized. There is no aortic stenosis. Pulmonic Valve The pulmonic valve is not well visualized. Great Vessels The aortic root is not well visualized. Pericardium/Pleural No pericardial effusion. Medication Diluted definity 2ml given slow IV push to enhance endocardial definition. MMode/2D Measurements Calculations LAV(MOD-sp4): 34.4 ml SV(MOD-sp4): 49.9 ml LVAd ap4: 42.5 cm2 LVLd ap4: 9.7 cm SI(MOD-sp4): 20.9 ml/m2 EDV(MOD-sp4): 152.0 ml EDV(sp4-el): 157.4 ml LVAs ap4: 33.9 cm2 LVLs ap4: 9.2 cm ESV(MOD-sp4): 102.1 ml ESV(sp4-el): 106.4 ml EF(MOD-sp4): 32.8 % EF(sp4-el): 32.4 % SV(sp4-el): 50.9 ml LA A4 area: 14.5 cm2 RA A4 area: 16.0 cm2 Time Measurements MV dec time: 0.35 sec Doppler Measurements Calculations MV E max bozena: 46.9 cm/sec Lat Peak E' Bozena: 8.7 cm/sec Med Peak E' Bozena: 6.0 cm/sec MV A max bozena: 67.9 cm/sec E/E' lat: 5.4 E/E' med: 7.8 MV E/A: 0.69 MV V2 max: 78.0 cm/sec MV dec slope: 136.0 cm/sec2 Ao V2 max: 114.1 cm/sec MV max P.4 mmHg Ao max P.2 mmHg MV V2 mean: 45.7 cm/sec Ao V2 mean: 79.8 cm/sec MV mean P.95 mmHg Ao mean P.9 mmHg MV V2 VTI: 37.8 cm Ao V2 VTI: 23.0 cm AV (velocity ratio): 1.1 LV V1 max: 108.3 cm/sec PA V2 max: 109.5 cm/sec LV V1 max P.7 mmHg LV V1 mean P.0 mmHg LV V1 mean: 81.8 cm/sec LV V1 VTI: 25.9 cm ECHO/Echo Complete W/ Contrast Interpretation Summary Technically difficult study with suboptimal images. Apical akinesis. Posterior basal hypokinesis. Estimated LVEF 35%. Stage I diastolic dysfunction. Ordering Physician: Delilah Foster Referring Physician: Delilah Foster Performed By: Sarah Lopez [facility] 06/14/25 1208 Date Delialh Foster MD CC: Dr. Delilah Foster MD; Dr. 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 Speedy Boswell MD Status: REG CLI Referring Dr: Delilah Foster MD Sex: M C Stress Test Report Date: 06/10/2025 Procedure: Pharmacologic stress nuclear imaging study Indications: CAD Consent: Per the patient Procedure: The patient underwent pharmacologic (Regadenoson 0.4mg ) evaluation with a peak heart rate of 76 beats per minute (50%predicted maximal heart rate) and a peak blood pressure of 142/62 mmHg. The baseline ECG demonstrated sinus rhythm. The peak pharmacologic ECG did not show any ischemic changes. There were no cardiac dysrhythmias pretest, during pharmacologic infusion, or recovery. There was no complaint of chest discomfort during pharmacologic infusion or recovery. The patient was injected with 15.0 millicuries of technetium 99m Cardiolite and subsequently rest SPECT Cardiolite nuclear imaging was obtained in the horizontal long, vertical long, and short axis views. The patient underwent pharmacologic (Regadenoson) evaluation. The patient was injected with 44.7 millicuries of technetium 99m Cardiolite and subsequently stress SPECT Cardiolite nuclear imaging was obtained in the horizontal long, vertical long, and short axis views. A gated Cardiolite study at peak stress was obtained. The examination was stopped secondary to completion of protocol. Rest and stress SPECT Cardiolite nuclear imaging status post realignment, normalization, and attenuation correction demonstrate large fixed apical perfusion defect suggestive of prior transmural infarct with no significant amna-infarct ischemia. The gated study reveals apical akinesis. The reported LVEF is 43%. Impression: 1. Pharmacologic (Regadenoson) evaluation 2. Peak pharmacologic ECG with no diagnostic ischemic changes. 3. There were no cardiac dysrhythmias pretest, during pharmacologic infusion, or recovery. 5. Large fixed apical perfusion defect suggestive of prior transmural infarct with no significant amna-infarct ischemia. 6. The gated Cardiolite study reports an LVEF of 43%. This note was generated with [employer] software. It may contain incorrect words, spelling, and punctuation that were not noted in checking the note before signing. 06/10/253 Date Delilha Foster MD CC: Dr. Delilah Foster MD; Dr. Speedy Boswell MD Date Dictated: 06/10/251120 Date Transcribed: 06/10/251120 Ground Support Equipment Mechanic: SON Signed Normal [facility] Calculated very low density lipoprotein (VLDL) cholesterol measurementOrdered By: Speedy Boswell on 06-07-2025 Calculated very low density lipoprotein (VLDL) cholesterol measurement 22 mg/dL 5-40 [facility] LDL calc ser/plasOrdered By: Speedy Boswell on 06-07-2025 Cholesterol in LDL [Mass/Vol] 68 mg/dL [facility] Comment on above: Xzgrydjxyp=627-553 m g/dL & Higher Ompn=200 mg/dL or greater Lipid Profileon 06-07-2025 CHOL:HDL 3.84 Normal [facility] Comment on above: Performed By: #### L 400.0001 #### [facility] [address] [place], [address] (229) Cholesterol [Mass/Vol] 122 mg/dL Normal <=200 [facility] Comment on above: Result Comment: Chol esterol level, Desirable <200 mg/dL Borderline high cholesterol 200-239 mg/dL High cholesterol >=240 mg/dL Recommendations of the NCEP Adult Treatment Panel for the following risk-cutoff thresholds for the [place] population. Performed By: #### L 400.0001 #### [facility] [address] [facility]. [place], [place], [id number] Cholesterol in HDL [Mass/Vol] 32 mg/dL Low [facility] Comment on above: Result Comment: Kimberley onal Cholesterol Education Program (NCEP) guidelines: <40 mg/dL: Low HDL-cholesterol (major risk factor for CHD) >= 60 mg/dL: High HDL-cholesterol (negative risk factor for CHD) HDL-cholesterol is affected by a number of factors, e.g. smoking, exercise, hormones, sex and age. Performed By: #### L 400.0001 #### [facility] [address] [place], [address] Cholesterol in LDL [Mass/Vol] 68 mg/dL Normal [facility] Comment on above: Result Comment: Bord nsdrjl=024-063 mg/dL Higher Zmen=517 mg/dL or greater Performed By: #### L 400.0001 #### [facility] [address] [place], [address] Cholesterol in VLDL [Mass/Vol] 22 mg/dL Normal 5-40 [facility] Comment on above: Performed By: #### L 400.0001 #### [facility] [address] [place], [place], [phone] ([phone]) Triglyceride [Mass/Vol] 110 mg/dL Normal [facility] Comment on above: Result Comment: The drugs N-Acetylcysteine and Metamizole may falsely depress this assay. Normal range: <150 mg/dL Borderline High: 150-199 mg/dL High: 200-499 mg/dL Very High: >500 mg/dL Performed By: #### L 400.0001 #### [facility] [address] [place], [place], [phone] ([phone]) Screening total cholesterol/ high density lipoprotein (HDL) cholesterol ratioOrdered By: Speedy Boswell on 06-07-2025 Cholesterol.total/Melba sterol in HDL [Mass ratio] 3.84 {ratio} [facility] Serum or plasma cholesterol in HDL measurement (mass/volume)Ordered By: Speedy Boswell on 06-07-2025 Cholesterol in HDL [Mass/Vol] 32 mg/dL Low >40 [facility] Comment on above: National Cholesterol Education Program (NCEP) guidelines:<40 mg/dL: Low HDL-cholesterol (major risk factor for CHD)>= 60 mg/dL: High HDL-cholesterol (negative risk factor for CHD)HDL-cholesterol is affected by a number of factors, e.g. smoking, exercise, hormones, sex and age. Serum or plasma cholesterol measurement (mass/volume)Ordered By: Speedy Boswell on 06-07-2025 Cholesterol [Mass/Vol] 122 mg/dL <[address] [facility] Comment on above: Cholesterol level, D esirable <200 mg/dLBorderline high cholesterol 200-239 mg/dLHigh cholesterol >=240 mg/dLRecommendations of the NCEP Adult Treatment Panel for the following risk-cutoff thresholds for the [place] population. Triglycerides measurementOrd ered By: Speedy Boswell on 06-07-2025 Triglyceride [Mass/Vol] 110 mg/dL <199 [facility] Comment on above: The drugs N-Acetylcy steine and Metamizole may falsely depress this assay. Normal range: <150 mg/dLBorderline High: 150-199 mg/dLHigh: 200-499 mg/dLVery High: >500 mg/dL CTA Chest W/WO Contraston CTA Chest W/WO Contrast [facility] Imaging Services [address] [place] [address] [id number] CTA Chest W/WO Contrast MR#: [id number] Acct: [id number] Name: ALBIN ISSA Rep #: [id number] : 1955 M 70 From: Makenna Steiner PCP: Dr. Speedy Boswell MD Status: [facility] CLI Study: CTA Chest W/WO Contrast Date of Exam: 05/12/25 Exam# [id number] Ordering Dr: Speedy Boswell MD PROCEDURE: CTA [...] lobar branches. No focal consolidations. Reading Location: [facility] CC: Dr. 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, [address] MALB:CREAT UNABLE TO CALCULATE Normal [facility] Comment on above: Performed By: #### L 400.0001 #### [facility] [address] [place], [address] MICROALBUMIN,UR < 12.0 Normal NO RANGE EST. [facility] Comment on above: Performed By: #### L 400.0001 #### [facility] [address] [place], [address] MALB:CREAT Normal [facility] Comment on above: Result Comment: NO U RINE CVOLLECTED Performed By: #### L 400.0001 #### [facility] [address] [place], [address] MICROALBUMIN,UR Normal NO RANGE EST. [facility] Comment on above: Result Comment: NO U RINE CVOLLECTED Performed By: #### L 400.0001 #### [facility] [address] [place], [address] UR CREAT Normal 39.00-259.00 [facility] Comment on above: Result Comment: NO U RINE CVOLLECTED Performed By: #### L 400.0001 #### [facility] [address] [place], [address] Microalbumin/creat ratio urO rdered By: Speedy Boswell on 05-12-2025 Urine microalbumin/creatinine ratio measurement UNABLE TO CALCULATE mg/g CRE [facility] Random urine creatinine raul urement (mass/volume)Ordered By: Speedy Boswell on 05-12-2025 Creatinine Unsp time (U) [Mass/Vol] 91.40 mg/dL 39.00-259.00 [facility] Urine albumin measurement wi th detection limit of 20 mg/L or less (mass/volume)Ordered By: Speedy Boswell on 05-12-2025 Albumin DL <= 20 mg/L (U) [Mass/Vol] < 12.0 mg/L NO RANGE EST. [facility] 12 Lead EKGon 05-09-2025 12 Lead EKG [facility] Cardiovascular Services [address] [place] [address] 12 Lead EKG 05/09/25 0004 MR#: [id number] Acct: [id number] Name: ALBIN ISSA Rep #: [id number] : 1955 70 From: Louis Sweet MD [...] abnormality Abnormal ECG Confirmed by Louis Sweet ([id number]), editor map BEATRIZ BECERRIL ([id number]) on 05/10/2025 9:34:21 AM Referred By: Confirmed By: Louis Sweet 05/10/25 0934 Date Louis Sweet MD CC: Dr. Speedy Boswell MD; Dr. Kenneth Redmond DO Signed Normal [facility] Absolute lymphocyte countOrd ered By: Kenneth Redmond on 05-09-2025 Lymphocytes Auto (Unsp spec) [#/Vol] 1.88 10*3/uL 0.83-4.51 [facility] Absolute neutrophil countOrd ered By: Kenneth Redmond on 05-09-2025 Neutrophils (Bld) [#/Vol] 4.7 10*3/uL 2.0-7.7 [facility] Activated partial thrombopla stin time (aPTT) in platelet poor plasma by coagulation aOrdered By: Kenneth Redmond on 05-09-2025 aPTT Coag (PPP) [Time] 24.4 s 24.1-36.2 [facility] Anion gap in Serum or Plasma Ordered By: Kenneth Redmond on 05-09-2025 Anion gap [Moles/Vol] 11 mmol/L 5-15 [facility] Automated lymphocyte count a s percentage of total leukocytesOrdered By: Kenneth Redmond on 05-09-2025 Lymphocytes/100 WBC Auto (Unsp spec) 24.3 % -41 [facility] BUN/creatinine ratioOrdered By: Kenneth Redmond on 05-09-2025 Urea nitrogen/Creatinine [Mass ratio] 16.2 mg/mg 10- [facility] Basic Metabolic Profile (BMP )on 05-09-2025 BUN/CRE 16.2 RATIO Normal - [facility] Comment on above: Performed By: #### L 499.0042 #### [facility] [address] [place], [place], [id number] Calcium [Mass/Vol] 9.7 mg/dL Normal 7.6-11.0 [facility] Comment on above: Performed By: #### L 499.0042 #### [facility] [address] [place], [address] Chloride [Moles/Vol] 105 mmol/L Normal 98-108 [facility] Comment on above: Performed By: #### L 499.0042 #### [facility] [address] [place], [address] CO2 [Moles/Vol] 24.1 mmol/L Normal 21.0-32.0 [facility] Comment on above: Performed By: #### L 499.0042 #### [facility] [address] [place], [address] Creatinine [Mass/Vol] 1.25 mg/dL High 0.70-1.20 [facility] Comment on above: Performed By: #### L 499.0042 #### [facility] [address] [place], [address] ECRCL 74.15 ml/min Normal 50-250 [facility] Comment on above: Performed By: #### L 499.0042 #### [facility] [address] [place], [address] GAP 11 Normal 5-15 [facility] Comment on above: Performed By: #### L 499.0042 #### [facility] [address] [place], [address] GFR/1.73 sq M.predicted among non-blacks MDRD (S/P/Bld) [Vol rate/Area] 62 mL/min/{1.73_m2} Normal >60 [facility] Comment on above: Result Comment: mL/m in/1.73m2 CKD-EPI Creatinine Equation (2020) Performed By: #### L 499.0042 #### [facility] [address] [place], [address] Glucose [Mass/Vol] 88 mg/dL Normal 70-99 [facility] Comment on above: Performed By: #### L 499.0042 #### [facility] [address] [place], [address] Potassium [Moles/Vol] 3.5 mmol/L Normal 3.3-5.1 [facility] Comment on above: Performed By: #### L 499.0042 #### [facility] [address] [place], [address] Sodium [Moles/Vol] 140 mmol/L Normal 133-145 [facility] Comment on above: Performed By: #### L 499.0042 #### [facility] [address] [place], [address] Urea nitrogen [Mass/Vol] 20 mg/dL High 4-19 [facility] Comment on above: Performed By: #### L 499.0042 #### [facility] [address] [place], [address] Basophil percentageOrdered B y: Kenneth Redmond on 05-09-2025 Basophils/100 WBC (Bld) 0.9 % 0-1 [facility] CBC W/Diff, Automatedon 06- Absolute Lymph 1.88 X10 3/uL Normal 0.83-4.51 [facility] Comment on above: Performed By: #### L 501.4021, L300.8000, L500.2500, L300.4310, L300.3900, L100.0100, L503.7505 #### [facility] [address] [place], [address] Absolute Neut 4.7 X10 3/uL Normal 2.0-7.7 [facility] Comment on above: Performed By: #### L 501.4021, L300.8000, L500.2500, L300.4310, L300.3900, L100.0100, L503.7505 #### [facility] [address] [place], [address] Basophils/100 WBC (Bld) 0.9 % Normal 0-1 [facility] Comment on above: Performed By: #### L 501.4021, L300.8000, L500.2500, L300.4310, L300.3900, L100.0100, L503.7505 #### [facility] [address] [place], [address] Eosinophils/100 WBC (Bld) 3.9 % Normal 0-5 [facility] Comment on above: Performed By: #### L 501.4021, L300.8000, L500.2500, L300.4310, L300.3900, L100.0100, L503.7505 #### [facility] [address] [place], [address] Erythrocyte distribution width (RBC) [Ratio] 13.3 % Normal 11.6-14.6 [facility] Comment on above: Performed By: #### L 501.4021, L300.8000, L500.2500, L300.4310, L300.3900, L100.0100, L503.7505 #### [facility] [address] [place], [address] Hematocrit (Bld) [Volume fraction] 44.4 % Normal 40-54 [facility] Comment on above: Performed By: #### L 501.4021, L300.8000, L500.2500, L300.4310, L300.3900, L100.0100, L503.7505 #### [facility] [address] [place], [address] Hemoglobin (Bld) [Mass/Vol] 15.0 g/dL Normal 13.0-16.5 [facility] Comment on above: Performed By: #### L 501.4021, L300.8000, L500.2500, L300.4310, L300.3900, L100.0100, L503.7505 #### [facility] [address] [place], [address] IG% 0.600 Normal 0.0-0.9 [facility] Comment on above: Result Comment: IG% - Immature Granulocytes (promyelocytes, myelocytes and metamyelocytes) > 1% indicates that a LEFT SHIFT is Present. Performed By: #### L 501.4021, L300.8000, L500.2500, L300.4310, L300.3900, L100.0100, L503.7505 #### [facility] [address] [place], [address] Lymphocytes/100 WBC (Bld) 24.3 % Normal 19-41 [facility] Comment on above: Performed By: #### L 501.4021, L300.8000, L500.2500, L300.4310, L300.3900, L100.0100, L503.7505 #### [facility] [address] [place], [address] MCH (RBC) [Entitic mass] 30.2 pg Normal 27.0-32.0 [facility] Comment on above: Performed By: #### L 501.4021, L300.8000, L500.2500, L300.4310, L300.3900, L100.0100, L503.7505 #### [facility] [address] [place], [address] MCHC (RBC) [Mass/Vol] 33.8 g/dL Normal 32-36 [facility] Comment on above: Performed By: #### L 501.4021, L300.8000, L500.2500, L300.4310, L300.3900, L100.0100, L503.7505 #### [facility] [address] [place], [address] MCV (RBC) [Entitic vol] 89.3 fL Normal 80-94 [facility] Comment on above: Performed By: #### L 501.4021, L300.8000, L500.2500, L300.4310, L300.3900, L100.0100, L503.7505 #### [facility] [address] [place], [address] Monocytes/100 WBC (Bld) 9.3 % Normal 0-10 [facility] Comment on above: Performed By: #### L 501.4021, L300.8000, L500.2500, L300.4310, L300.3900, L100.0100, L503.7505 #### [facility] [address] [place], [address] Neutrophils/100 WBC (Bld) 61.0 % Normal 47-70 [facility] Comment on above: Performed By: #### L 501.4021, L300.8000, L500.2500, L300.4310, L300.3900, L100.0100, L503.7505 #### [facility] [address] [place], [address] Nucleated RBC (Bld) [#/Vol] 0 10*3/uL Normal 0-5 [facility] Comment on above: Performed By: #### L 501.4021, L300.8000, L500.2500, L300.4310, L300.3900, L100.0100, L503.7505 #### [facility] [address] [place], [address] Platelet mean volume (Bld) [Entitic vol] 9.7 fL Normal 6.2-12.0 [facility] Comment on above: Performed By: #### L 501.4021, L300.8000, L500.2500, L300.4310, L300.3900, L100.0100, L503.7505 #### [facility] [address] [facility] [address] Platelets (Bld) [#/Vol] 221 10*3/uL Normal 150-450 [facility] Comment on above: Performed By: #### L 501.4021, L300.8000, L500.2500, L300.4310, L300.3900, L100.0100, L503.7505 #### [facility] [address] [place], [address] RBC (Bld) [#/Vol] 4.97 10*6/uL Normal 4.6-6.2 [facility] Comment on above: Performed By: #### L 501.4021, L300.8000, L500.2500, L300.4310, L300.3900, L100.0100, L503.7505 #### [facility] [address] [place], [address] RDW SD 43.5 fl Normal 35.1-43.9 [facility] Comment on above: Performed By: #### L 501.4021, L300.8000, L500.2500, L300.4310, L300.3900, L100.0100, L503.7505 #### [facility] [address] [place], [address] WBC (Bld) [#/Vol] 7.7 10*3/uL Normal 4.4-11.0 [facility] Comment on above: Performed By: #### L 501.4021, L300.8000, L500.2500, L300.4310, L300.3900, L100.0100, L503.7505 #### [facility] [address] [place], [address] Carbon dioxide, total [Moles /volume] in Central venous bloodOrdered By: Kenneth Stokes 05-09-2025 CO2 [Moles/Vol] 24.1 mmol/L 21.0-32.0 [facility] Chest PA and Lateralon 05-09 Chest PA and Lateral [facility] Imaging Services [address], [place] [address] Chest PA and Lateral MR#: [id number] Acct: [id number] Name: ALBIN ISSA Rep #: [id number] : 1955 M 70 From: Allie pollock MD PCP: Dr. Speedy Boswell MD Status: REG ER Study: Chest PA and Lateral Date of Exam: 05/09/25 Exam# [id number] Ordering Dr: Kenneth Redmond DO PROCEDURE: CHEST [...] mild central pulmonary venous congestion. Reading Location: [place] [address] CC: Dr. Speedy Boswell MD; Dr. Kenneth Redmond DO Ground Support Equipment Mechanic: Signed Normal [facility] Chloride assayOrdered By: Magdi Redmond on 05-09-2025 Chloride [Moles/Vol] 105 mmol/L 98-108 [facility] D-Dimer Quantitative (DVT/PE )on 05-09-2025 D-DIMER QUANT 0.59 FEU/ug/m Invalid Interpretation Code 0.27-0.49 [facility] Comment on above: Result Comment: D-Di kayla ELEVATED (>0.49): Additional studies and clinical assessments are indicated to conclude diagnosis of: Deep Vein Thrombosis (DVT) or Pulmonary Embolism (PE) CRITICAL VALUE CALLED TO LSPARR 05/09/25 Rios Stark. RESULTS READ BACK BY SAME. Performed By: #### L 499.0042 #### [facility] [address] [place], [address] Emergency Department Summary on 05-09-2025 Emergency Department Summary [facility] Medical Records Department [address] [place] [address] Emergency Department Summary 05/09/25 MR#: [id number] Acct: [id number] Name: ALBIN ISSA Rep #: [id number] : 1955 70 From: Kenneth Quezada PCP: [...] a maker. He is followed by Dr. Foster. Reports his maker started with sore throat. 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 Normal [facility] Eosinophil percentageOrdered By: Kenneth Redmond on 05-09-2025 Eosinophils/100 WBC (Bld) 3.9 % 0-5 [facility] Erythrocyte distribution wid th ratioOrdered By: Kenneth Redmond on 05-09-2025 Erythrocyte distribution width (RBC) [Ratio] 13.3 % 11.6-14.6 [facility] Erythrocyte distribution wid th standard deviationOrdered By: Kenneth Redmond on 05-09-2025 Erythrocyte distribution width (RBC) [Ratio] 43.5 fl 35.1-43.9 [facility] Glomerular filtration rate ( GFR) estimation/1.73 sq m using serum, plasma, or whole bOrdered By: Kenneth Redmond on 05-09-2025 GFR/1.73 sq M.predicted among non-blacks MDRD (S/P/Bld) [Vol rate/Area] 62 mL/min/{1.73_m2} >60 [facility] Comment on above: mL/min/1.73m2 CKD-EP I Creatinine Equation (2020) Hematocrit Auto (Bld) [Volum e fraction]Ordered By: Kenneth Redmond on 05-09-2025 Hematocrit (Bld) [Volume fraction] 44.4 % 40-54 [facility] Hemoglobin measurementOrdere d By: Kenneth Redmond on 05-09-2025 Hemoglobin (Bld) [Mass/Vol] 15.0 g/dL 13.0-16.5 [facility] Immature granulocytes/100 WB C Auto (Bld)Ordered By: Kenneth Redmond on 05-09-2025 Immature granulocytes/100 WBC (Bld) 0.600 % 0.0-0.9 [facility] Comment on above: IG% - Immature Granu locytes (promyelocytes, myelocytes and metamyelocytes) > 1% indicates that a LEFT SHIFT is Present. International normalized rat io (INR) calculationOrdered By: Kenneth Redmond on 05-09-2025 INR Coag (Bld) [Relative time] 1.0 {INR} [facility] L499.0042on 05-09-2025 Trop T High Sen 14 ng/L Normal <=22 [facility] Comment on above: Performed By: #### L 499.0042 #### [facility] [address] [place], [address] L499.0043on 05-09-2025 Trop T High Sen Normal <=22 [facility] Comment on above: Result Comment: Canc elled via OM: Order cancelled - Patient discharged Performed By: #### L 499.0043 #### [facility] [address] [place], [address] L501.4021on 05-09-2025 Trop T High Sen 14 ng/L Normal <=22 [facility] Comment on above: Performed By: #### L 499.0042 #### [facility] [address] [place], [address] L503.7505on 05-09-2025 Natriuretic peptide B (Bld) [Mass/Vol] 86 pg/mL Normal <=900 [facility] Comment on above: Result Comment: Hear t Failure Unlikely: < 300 pg/mL Heart Failure Likely < 50 Years: > 450 pg/mL 50-75 Years: > 900 pg/mL >75 Years: > 1800 pg/mL Performed By: #### L 499.0042 #### [facility] [address] [place], [address] MCV (mean corpuscular volume ) determinationOrdered By: Kenneth Redmond on 05-09-2025 MCV (RBC) [Entitic vol] 89.3 fL 80-94 [facility] Mean corpuscular hemoglobin (MCH) determinationOrdered By: Kenneth Redmond on 05-09-2025 MCH (RBC) [Entitic mass] 30.2 pg 27.0-32.0 [facility] Mean corpuscular hemoglobin concentration (MCHC) determinationOrdered By: Kenneth Redmond on 05-09-2025 MCHC (RBC) [Mass/Vol] 33.8 g/dL 32-36 [facility] Mean platelet volume determi nationOrdered By: Kenneth Redmond on 05-09-2025 Platelet mean volume (Bld) [Entitic vol] 9.7 fL 6.2-12.0 [facility] Monocyte percentageOrdered B y: Kenneth Redmond on 05-09-2025 Monocytes/100 WBC (Bld) 9.3 % 0-10 [facility] Natriuretic peptide.B prohor froy N-Terminal [Mass/volume] in Serum or PlasmaOrdered By: Kenneth Redmond on 05-09-2025 Natriuretic peptide.B prohormone N-Terminal [Mass/Vol] 86 pg/mL <900 [facility] Comment on above: Heart Failure Unlike ly: < 300 pg/mLHeart Failure Likely< 50 Years: > 450 pg/mL50-75 Years: > 900 pg/mL>75 Years: > 1800 pg/mL Neutrophil percentageOrdered By: Kenneth Redmond on 05-09-2025 Neutrophils/100 WBC (Bld) 61.0 % 47-70 [facility] Nucleated red blood cell per centageOrdered By: Kenneth Redmond on 05-09-2025 Nucleated RBC/100 WBC (Bld) [Ratio] 0 % 0-5 [facility] Partial Thromboplast Timeon 05-09-2025 aPTT Coag (Bld) [Time] 24.4 s Normal 24.1-36.2 [facility] Comment on above: Performed By: #### L 499.0042 #### [facility] [address] [place], [address] Platelet countOrdered By: Magdi Redmond on 05-09-2025 Platelets (Bld) [#/Vol] 221 10*3/uL 150-450 [facility] Potassium measurement (mass/ volume)Ordered By: Kenneth Redmond on 05-09-2025 Potassium (Unsp spec) [Mass/Vol] 3.5 mmol/L 3.3-5.1 [facility] Prothrombin Time w/INRon INR Coag (PPP) [Relative time] 1.0 {INR} Normal [facility] Comment on above: Performed By: #### L 499.0042 #### [facility] [address] [place], [place], [address] PT Coag (PPP) [Time] 12.8 s Normal 11.7-14.9 [facility] Comment on above: Performed By: #### L 499.0042 #### [facility] [address] [place], [place], [address] Prothrombin timeOrdered By: Kenneth Redmond on 05-09-2025 PT Coag (PPP) [Time] 12.8 s 11.7-14.9 [facility] RBC Auto (Bld) [#/Vol]Ordere d By: Kenneth Redmond on 05-09-2025 RBC (Bld) [#/Vol] 4.97 10*6/uL 4.6-6.2 [facility] Serum creatinine measurement (mass/volume)Ordered By: Kenneth Redmond on 05-09-2025 Creatinine [Mass/Vol] 1.25 mg/dL High 0.70-1.20 [facility] Serum glucose measurement (m ass/volume)Ordered By: Kenneth Redmond on 05-09-2025 Glucose [Mass/Vol] 88 mg/dL 70-99 [facility] Serum or plasma calcium raul urement (mass/volume)Ordered By: Kenneth Redmond on 05-09-2025 Calcium [Mass/Vol] 9.7 mg/dL 7.6-11.0 [facility] Serum or plasma urea nitroge n measurement (mass/volume)Ordered By: Kenneth Redmond on 05-09-2025 Urea nitrogen [Mass/Vol] 20 mg/dL High 4-19 [facility] Sodium levelOrdered By: Kenneth Redmond on 05-09-2025 Sodium [Moles/Vol] 140 mmol/L 133-145 [facility] Troponin T.cardiac [Mass/vol ume] in Serum or Plasma by High sensitivity methodOrdered By: Kenneth Redmond on 05-09-2025 Troponin T.cardiac High sensitivity method [Mass/Vol] 14 ng/L <22 [facility] Troponin T.cardiac High sensitivity method [Mass/Vol] 14 ng/L <22 [facility] White blood cell (WBC) count Ordered By: Kenneth Redmond on 05-09-2025 WBC (Bld) [#/Vol] 7.7 10*3/uL 4.4-11.0 [facility] Cardiology Visit Reporton Cardiology Visit Report [facility] [address] [place] [address] OFFICE VISIT Date of Service: 05/03/25 MR#: [id number] Acct: [id number] Name: ALBIN ISSA Rep #: [id number] : 1955 Provider: Dr. Delilah Foster MD Age/Sex: 70/M Location: [facility] Status: Signed HPI HPI History of Present [...] 81 mg chewable tablet 81 mg PO [facility] Heart health 06/09/17 05/03/25 History Held [...] without angina pectoris Atherosclerotic heart disease of [place] coronary artery without angina pectoris Automatic implantable [...] epicondylitis of left elbow Left elbow pain alf use of drug Lymphedema of Right Leg Lymphedema of right lower extremity Mixed hyperlipidemia Morbid obesity with BMI of 40.0-44.9, adult Obesity (BMI 30-39.9) Over 65 years old Pacemaker Paresthesia of left upper extremity Phantom pain after amputation of lower extremity Renal calculi Shortness of breath SIRS (systemic inflammatory res (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 Normal [facility] Pacemaker Checkon 01-25-2025 Pacemaker Check [facility] [address] [place] [address]. [address] [place], [place] [address] Pacemaker Check Date of Service: 01/25/251536 MR#: [id number] Acct: [id number] Name: ALBIN ISSA Rep #: [id number] : 1955 From: Bethany Deng Age/Sex: 69/M Location[place] [facility] Status: Signed Billing Codes ICD Device Billin ICD Dev Prog Eval, Dual Assessment and Plan Assessment and Plan (1) ICD (implantable cardioverter-defibril lator) in place: Status: Chronic Comment: ICD Implant 2009 (2) Ischemic cardiomyopathy: Status: Chronic Comment: EF 45%. Stage I diastolic dysfunction 01/25/25 1538 Date Bethany Perera Signature: Date (if applicable) CC: Normal [facility] Comprehensive Metabolic Prof ilon 12-11-2024 Albumin [Mass/Vol] 3.6 g/dL Normal 3.2-5.0 [facility] Comment on above: Performed By: #### L 499.0042 #### [facility] [address] [place], [address] Albumin/Globulin [Mass ratio] 1.1 {ratio} Normal 0.9-2.4 [facility] Comment on above: Performed By: #### L 499.0042 #### [facility] [address] [place], [address] ALK P 148 U/L High 45-117 [facility] Comment on above: Performed By: #### L 499.0042 #### [facility] [address] [place], [address] ALT [Catalytic activity/Vol] 34 U/L Normal 16-61 [facility] Comment on above: Performed By: #### L 499.0042 #### [facility] [address] [place], [address] AST [Catalytic activity/Vol] 14 U/L Low 15-37 [facility] Comment on above: Performed By: #### L 499.0042 #### [facility] [address] [place], [address] Bilirubin [Mass/Vol] 0.40 mg/dL Normal 0.20-1.00 [facility] Comment on above: Result Comment: For patients on eltrombopag therapy, use of Dimension [place] TBIL is not recommended. Performed By: #### L 499.0042 #### [facility] [address] [place], [address] BUN/CRE 12.3 RATIO Normal 10-20 [facility] Comment on above: Performed By: #### L 499.0042 #### [facility] [address] [place], [address] CA,Total 9.9 mg/dL Normal 8.5-10.1 [facility] Comment on above: Performed By: #### L 499.0042 #### [facility] [address] [place], [address] Chloride [Moles/Vol] 108 mmol/L High 98-107 [facility] Comment on above: Performed By: #### L 499.0042 #### [facility] [address] [place], [address] CO2 [Moles/Vol] 28.0 mmol/L Normal 21.0-32.0 [facility] Comment on above: Performed By: #### L 499.0042 #### [facility] [address] [place], [address] Creatinine [Mass/Vol] 1.06 mg/dL Normal 0.70-1.30 [facility] Comment on above: Result Comment: The validity of the calculated GFR GFRAA in patients over 70 years has not been determined. Clinical correlation is essential. Performed By: #### L 499.0042 #### [facility] [address] [place], [address] EST GFR - AA 89 mL/min Normal >60 [facility] Comment on above: Result Comment: Afri can Monegasque GFR Calc Performed By: #### L 499.0042 #### [facility] [address] [place], [address] GAP 4 Low 5-15 [facility] Comment on above: Performed By: #### L 499.0042 #### [facility] [address] [place], [address] GFR/1.73 sq M.predicted among non-blacks MDRD (S/P/Bld) [Vol rate/Area] 74 mL/min/{1.73_m2} Normal >60 [facility] Comment on above: Result Comment: Non- GFR Calc Performed By: #### L 499.0042 #### [facility] [address] [place], [address] Globulin (S) [Mass/Vol] 3.4 g/dL Normal 2.2-4.2 [facility] Comment on above: Performed By: #### L 499.0042 #### [facility] [address] [place], [address] Glucose [Mass/Vol] 126 mg/dL High 74-106 [facility] Comment on above: Result Comment: Fast ing Glucose result greater than or equal to 126 mg/dL suggests DIABETES MELLITUS per A.D.A. criteria. Performed By: #### L 499.0042 #### [facility] [address] [place], [address] Potassium [Moles/Vol] 3.6 mmol/L Normal 3.5-5.1 [facility] Comment on above: Performed By: #### L 499.0042 #### [facility] [address] [place], [address] Sodium [Moles/Vol] 140 mmol/L Normal 136-145 [facility] Comment on above: Performed By: #### L 499.0042 #### [facility] [address] [place], [place], [id number] (919) T PROT 7.0 g/dL Normal 6.4-8.2 [facility] Comment on above: Performed By: #### L 499.0042 #### [facility] [address] [place], [address] Urea nitrogen [Mass/Vol] 13 mg/dL Normal 7-18 [facility] Comment on above: Performed By: #### L 499.0042 #### [facility] [address] [place], [address] Hemoglobin A1con 12-11-2024 HbA1c (Bld) [Mass fraction] 6.0 % High 3.8-5.6 [facility] Comment on above: Result Comment: Norm al < 5.7 % Prediabetic 5.7 - 6.4 % Diabetic >or= 6.5 % Please note range changes. Performed By: #### L 499.0042 #### [facility] [address] [place], [place], [id number] (219) Lipid Profileon 12-11-2024 Cholesterol [Mass/Vol] 113 mg/dL Normal 200 [facility] Comment on above: Result Comment: <200 mg/dL Desirable 200-240 mg/dL Borderline >240 mg/dL High Risk Performed By: #### L 499.0042 #### [facility] [address] [place], [address] Cholesterol in HDL [Mass/Vol] 50 mg/dL Normal [facility] Comment on above: Result Comment: The drugs N-Acetylcysteine and Metamizole may falsely depress this assay. Reference Range HDL <40 mg/dL Low HDL Cholesterol HDL >or= 60 mg/dL High HDL Cholesterol Performed By: #### L 499.0042 #### [facility] [address] [place], [address] Cholesterol in LDL [Mass/Vol] 39 mg/dL Normal 0-130 [facility] Comment on above: Performed By: #### L 499.0042 #### [facility] [address], [address] Cholesterol in VLDL [Mass/Vol] 24 mg/dL Normal 5-40 [facility] Comment on above: Performed By: #### L 499.0042 #### [facility] [address], [address] Triglyceride [Mass/Vol] 122 mg/dL Normal [facility] Comment on above: Result Comment: The drugs N-Acetylcysteine and Metamizole may falsely depress this assay. Serum Triglycerides Reference Interval Normal <150 mg/dL Borderline high 150 - 199 mg/dL High 200 - 499 mg/dL Very High > or = 500 mg/dL Performed By: #### L 499.0042 #### [facility] [address], [address] Protein+Creatinine Ratio,Uri neon 12-11-2024 PROT:CRE RATIO Normal 0-200 [facility] Comment on above: Result Comment: UTO Performed By: #### L 499.0042 #### [facility] [address] [place], [address] PROTEIN,UR.RAN. Normal <11.9 [facility] Comment on above: Result Comment: UTO Performed By: #### L 499.0042 #### [facility] [address], [address] UR CREAT Normal NO RANGE EST. [facility] Comment on above: Result Comment: UTO Performed By: #### L 499.0042 #### [facility] [address] [place], [address] Bedside Glucoseon 11-18-2024 FINGERSTICK GLU 109 mg/dL High 74-106 [facility] Comment on above: Result Comment: EVAN MELISSA OF PATIENT CARE PER NURSING PROTOCOL Performed By: #### L 400.0001 #### [facility] [address] [place], [address] Discharge Instructionon 11-01 Discharge Instruction [facility] Medical Records Department [address] [place] [address] Instructions for Home/Discharge Instructions 11/18/24 0733 MR#: [id number] Acct: [id number] Name: ALBIN ISSA Rep #: [id number] : 1955 69 From: Ravi Holder MD PCP: Dr. Speedy Boswell MD Status:DEP [facility] Discharge Instructions DC O2, CPAP, BIPAP needs Additional Home O2 Discharge instructions: No Follow Up Care Test Results: Test results from this visit will be discussed in further detail at your follow-up appointment, if applicable. Discharge Plan Admission Primary Reason for Your Visit: left laser stone Attending Provider: Ravi Holder Primary Care Provider: Speedy Boswell Instructions Print Language: Mauritian Discharge Orders/Prescriptions Prescriptions: New ciprofloxacin HCl [Cipro] [...] MD CC: Dr. Speedy Boswell MD Signed [facility] MR/POSTOP.[facility] 11-18-2024 MR/POSTOP.[facility] Medical Records Department [address] [place] [address] Anesthesia Postop Eval I 11/18/24 1008 MR#: [id number] Acct: [id number] Name: ALBIN ISSA Rep #: [id number] : 1955 69 From: Milka Gillis PCP: Dr. Speedy Boswell MD Status:REG [facility] Y Race: C Location: [place] [address] Anesthesia: Postop Eval I Current Vital Signs Temperature: 97.5 F Pulse Rate: 65 Blood Pressure: 117/61 Respiratory Rate: 18 Pulse Ox: 94 Assessment Airway patent: Yes Spontaneous unlabored respirations: Yes nausea: No Vomiting: No Anesthesia Complication: No Fluid Hydration Crystalloid volume administer (ml): 800 Total IV fluid infused: 800 Progress Note Anesthesia document: Postop Eval 1 completed: Yes 11/18/24 1009 Date Milka Gillis Cosigner Signature: Date CC: Signed Normal [facility] MR/YIKUGVAY2lt 11-18-2024 MR/POSTOPAN2 [facility] Medical Records Department [address] [place] [address] Anesthesia Postop Eval II 11/18/24 1102 MR#: [id number] Acct: [id number] Name: ALBIN ISSA Rep #: [id number] : 1955 69 From: Niall Mayes MD PCP: Dr. 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 Spontaneous unlabored Yes 11/18/24 10:08 WAITER/WAITRESS FIRST CLASS.CSIR respirations Mental status nausea No 11/18/24 10:08 WAITER/WAITRESS [employer] CLASS.CSIR Vomiting No 11/18/24 10:08 WAITER/WAITRESS FIRST CLASS.CSIR Anesthesia Postop Eval I: Fluid Summary Crystalloid volume administer 800 11/18/24 10:08 WAITER/WAITRESS FIRST CLASS.CSIR (ml) Colloids volume administered ( ml) Blood Product volume administered (ml) Total IV fluid infused 800 11/18/24 10:08 WAITER/WAITRESS FIRST CLASS.CSIR Anesthesia Postop Eval I: Summary Notes Anesthesia Complication No 11/18/24 10:08 WAITER/WAITRESS FIRST CLASS.CSIR Anesthesia Complication Comment: Post-operative progress note Anesthesia: Postop Eval II Evaluation Mental status: Awake Pain Level: 0 nausea: No Vomiting: No 11/18/24 110 Date Niall Mayes MD Cosigner Signature: Date CC: Signed Normal [facility] Operative Reporton 4 Operative Report [facility] Medical Records Department [address] [place] [address] Operative Report 11/18/24 0958 MR#: [id number] Acct: [id number] Name: ALBIN ISSA Rep #: [id number] : 1955 69 From: Ravi Holder MD PCP: Dr. Speedy Boswell MD Status:[facility] Location: [place] [address] Operative Report (Standard) Operative Information Date of Procedure: 11/18/24 Pre-Operative Diagnosis: Left kidney stone Post-Operative Diagnosis: The same Surgery/Procedure Performed: Cystoscopy left ureteroscopy laser lithotripsy of stone, no stent photographer assistant: No Type of Anesthesia: General RN Documented [...] went into the bladder with a 21 Egyptian rigid cystourethroscope through the urethra. Upon entering [...] MD; Dr. Speedy Boswell MD Signed Normal [facility] Cardiology Visit Reporton Cardiology Visit Report [facility] [address] [facility] [place] [address] OFFICE VISIT Date of Service: 11/04/24 MR#: [id number] Acct: [id number] Name: ALBIN ISSA Rep #: [id number] : 1955 Provider: Dr. 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 Normal [facility] Emergency Department Summary on 10-26-2024 Emergency Department Summary [facility] Medical Records Department [address] [place] [address] Emergency Department Summary 10/26/24 MR#: [id number] Acct: [id number] Name: ALBIN ISSA Rep #: [id number] : 1955 69 From: Joce Serrano MD [...] (gastroesophageal reflux disease) Atherosclerotic heart disease of [place] coronary artery without angina pectoris Shortness of breath History of 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 alf use of drug Ischemic cardiomyopathy ( 10/30/23) [...] 60 mg PO BID blood pressure #180 12/26/23 07/11/24 Rx tablet,extended release 24 hr tabs ramipril 10 mg capsule 10 mg PO DAILY #90 caps 04/06/24 06/11/24 Rx multivitamin (Daily Multi-Vitamin 1 tab PO DAILY 05/27/24 06/06/24 History tablet) prednisone 20 mg tablet 40 mg (2 x 20 mg) PO DAILY #8 07 (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 Normal [facility] Abdomen/Pelvis without Conto n 10-21-2024 Abdomen/Pelvis without Cont [facility] Imaging Services [address] [place] [address] Abdomen/Pelvis without Cont MR#: [id number] Acct: [id number] Name: ALBIN ISSA Rep #: [id number] : 1955 M 69 From: Louis Steiner PCP: Dr. Speedy Boswell MD Status: DEP ER Study: Abdomen/Pelvis without Cont Date of Exam: 10/03 Exam# [id number] Ordering Dr: Manuel Hart DO [id number] EXAM: CT ABDOMEN AND PELVIS WITHOUT INTRAVENOUS [...] Dr. 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, [address] CA,Total 9.6 mg/dL Normal 8.5-10.1 [facility] Comment on above: Performed By: #### L 500.2500, L100.0100 #### [facility] [address] [place], [address] Chloride [Moles/Vol] 107 mmol/L Normal 98-107 [facility] Comment on above: Performed By: #### L 500.2500, L100.0100 #### [facility] [address] [place], [address] CO2 [Moles/Vol] 26.0 mmol/L Normal 21.0-32.0 [facility] Comment on above: Performed By: #### L 500.2500, L100.0100 #### [facility] [address] [place], [address] Creatinine [Mass/Vol] 1.26 mg/dL Normal 0.70-1.30 [facility] Comment on above: Result Comment: The validity of the calculated GFR GFRAA in patients over 70 years has not been determined. Clinical correlation is essential. Performed By: #### L 500.2500, L100.0100 #### [facility] [address] [place], [address] ECRCL 73.08 ml/min Normal [facility] Comment on above: Performed By: #### L 500.2500, L100.0100 #### [facility] [address] [place], [address] EST GFR - AA 73 mL/min Normal >60 [facility] Comment on above: Result Comment: Afri can Monegasque GFR Calc Performed By: #### L 500.2500, L100.0100 #### [facility] [address] [place], [address] GAP 5 Normal 5-15 [facility] Comment on above: Performed By: #### L 500.2500, L100.0100 #### [facility] [address] [place], [address] GFR/1.73 sq M.predicted among non-blacks MDRD (S/P/Bld) [Vol rate/Area] 60 mL/min/{1.73_m2} Normal >60 [facility] Comment on above: Result Comment: Non- GFR Calc Performed By: #### L 500.2500, L100.0100 #### [facility] [address] [place], [address] Glucose [Mass/Vol] 141 mg/dL High 74-106 [facility] Comment on above: Result Comment: Fast ing Glucose result greater than or equal to 126 mg/dL suggests DIABETES MELLITUS per A.D.A. criteria. Performed By: #### L 500.2500, L100.0100 #### [facility] [address] [place], [address] Potassium [Moles/Vol] 3.5 mmol/L Normal 3.5-5.1 [facility] Comment on above: Performed By: #### L 500.2500, L100.0100 #### [facility] [address] [place], [address] Sodium [Moles/Vol] 138 mmol/L Normal 136-145 [facility] Comment on above: Performed By: #### L 500.2500, L100.0100 #### [facility] [address] [place], [address] Urea nitrogen [Mass/Vol] 15 mg/dL Normal 7-18 [facility] Comment on above: Performed By: #### L 500.2500, L100.0100 #### [facility] [address] [place], [address] CBC W/Diff, Automatedon 11-2 0-2024 Absolute Lymph 1.63 X10 3/uL Normal 0.83-4.51 [facility] Comment on above: Performed By: #### L 500.2500, L100.0100 #### [facility] [address] [place], [address] Absolute Neut 4.7 X10 3/uL Normal 2.0-7.7 [facility] Comment on above: Performed By: #### L 500.2500, L100.0100 #### [facility] [address] [place], [address] Basophils/100 WBC (Bld) 0.7 % Normal 0-1 [facility] Comment on above: Performed By: #### L 500.2500, L100.0100 #### [facility] [address] [place], [address] Eosinophils/100 WBC (Bld) 2.2 % Normal 0-5 [facility] Comment on above: Performed By: #### L 500.2500, L100.0100 #### [facility] [address] [place], [address] Erythrocyte distribution width (RBC) [Ratio] 13.0 % Normal 11.6-14.6 [facility] Comment on above: Performed By: #### L 500.2500, L100.0100 #### [facility] [address] [place], [address] Hematocrit (Bld) [Volume fraction] 41.9 % Normal 40-54 [facility] Comment on above: Performed By: #### L 500.2500, L100.0100 #### [facility] [address] [place], [address] Hemoglobin (Bld) [Mass/Vol] 14.1 g/dL Normal 13.0-16.5 [facility] Comment on above: Performed By: #### L 500.2500, L100.0100 #### [facility] [address] [place], [address] IG% 0.400 Normal 0.0-0.9 [facility] Comment on above: Result Comment: IG% - Immature Granulocytes (promyelocytes, myelocytes and metamyelocytes) > 1% indicates that a LEFT SHIFT is Present. Performed By: #### L 500.2500, L100.0100 #### [facility] [address] [place], [address] Lymphocytes/100 WBC (Bld) 22.6 % Normal 19-41 [facility] Comment on above: Performed By: #### L 500.2500, L100.0100 #### [facility] [address] [place], [address] MCH (RBC) [Entitic mass] 30.1 pg Normal 27.0-32.0 [facility] Comment on above: Performed By: #### L 500.2500, L100.0100 #### [facility] [address] [place], [address] MCHC (RBC) [Mass/Vol] 33.7 g/dL Normal 32-36 [facility] Comment on above: Performed By: #### L 500.2500, L100.0100 #### [facility] [address] [place], [address] MCV (RBC) [Entitic vol] 89.3 fL Normal 80-94 [facility] Comment on above: Performed By: #### L 500.2500, L100.0100 #### [facility] [address] [place], [address] Monocytes/100 WBC (Bld) 8.3 % Normal 0-10 [facility] Comment on above: Performed By: #### L 500.2500, L100.0100 #### [facility] [address] [place], [address] Neutrophils/100 WBC (Bld) 65.8 % Normal 47-70 [facility] Comment on above: Performed By: #### L 500.2500, L100.0100 #### [facility] [address] [place], [address] Nucleated RBC (Bld) [#/Vol] 0 10*3/uL Normal 0-5 [facility] Comment on above: Performed By: #### L 500.2500, L100.0100 #### [facility] [address] [place], [address] Platelet mean volume (Bld) [Entitic vol] 9.6 fL Normal 6.2-12.0 [facility] Comment on above: Performed By: #### L 500.2500, L100.0100 #### [facility] [address] [place], [address] Platelets (Bld) [#/Vol] 202 10*3/uL Normal 150-450 [facility] Comment on above: Performed By: #### L 500.2500, L100.0100 #### [facility] [address] [place], [address] RBC (Bld) [#/Vol] 4.69 10*6/uL Normal 4.6-6.2 [facility] Comment on above: Performed By: #### L 500.2500, L100.0100 #### [facility] [address] [place], [address] RDW SD 42.3 fl Normal 35.1-43.9 [facility] Comment on above: Performed By: #### L 500.2500, L100.0100 #### [facility] [address] [place], [address] WBC (Bld) [#/Vol] 7.2 10*3/uL Normal 4.4-11.0 [facility] Comment on above: Performed By: #### L 500.2500, L100.0100 #### [facility] [address] [place], [address] Emergency Department Summary on 10-21-2024 Emergency Department Summary [facility] Medical Records Department [address] [place] [address] Emergency Department Summary 10/21/24 MR#: [id number] Acct: [id number] Name: ALBIN ISSA Rep #: [id number] : 1955 69 From: Manuel Hart DO PCP: Dr. 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 He states he is [...] concern for this he presents for evaluation 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 Normal [facility] Urinalysis, Completeon 10-21 WBC 0-5 SEEN Normal 0-5 [facility] Comment on above: Order Comment: TASHI CTOR TO SPECIFY Performed By: #### L 400.0001 #### [facility] [address] [place], [address] BACTERIA 0 SEEN Normal None Seen [facility] Comment on above: Order Comment: TASHI CTOR TO SPECIFY Performed By: #### L 400.0001 #### [facility] [address] [place], [address] EPI,SQUAMOUS 0 SEEN Normal 0-5 [facility] Comment on above: Order Comment: TASHI CTOR TO SPECIFY Performed By: #### L 400.0001 #### [facility] [address] [place], [address] Mucus Ql (Urine sed) 0 SEEN Normal [facility] Comment on above: Order Comment: TASHI CTOR TO SPECIFY Performed By: #### L 400.0001 #### [facility] [address] [place], [address] RBC 0 SEEN Normal 0-5 [facility] Comment on above: Order Comment: TASHI CTOR TO SPECIFY Performed By: #### L 400.0001 #### [facility] [address] [place], [address] Comprehensive Metabolic Prof ilon 09-10-2024 Albumin [Mass/Vol] 3.7 g/dL Normal 3.2-5.0 [facility] Comment on above: Performed By: #### L 500.4100, L502.0500, L500.4050 #### [facility] [address] [place], [address] Albumin/Globulin [Mass ratio] 1.0 {ratio} Normal 0.9-2.4 [facility] Comment on above: Performed By: #### L 500.4100, L502.0500, L500.4050 #### [facility] [address] [place], [address] ALK P 136 U/L High 45-117 [facility] Comment on above: Performed By: #### L 500.4100, L502.0500, L500.4050 #### [facility] [address] [place], [address] ALT [Catalytic activity/Vol] 34 U/L Normal 16-61 [facility] Comment on above: Performed By: #### L 500.4100, L502.0500, L500.4050 #### [facility] [address] [place], [address] AST [Catalytic activity/Vol] 19 U/L Normal 15-37 [facility] Comment on above: Performed By: #### L 500.4100, L502.0500, L500.4050 #### [facility] [address] [place], [address] Bilirubin [Mass/Vol] 0.70 mg/dL Normal 0.20-1.00 [facility] Comment on above: Result Comment: For patients on eltrombopag therapy, use of Dimension [place] TBIL is not recommended. Performed By: #### L 500.4100, L502.0500, L500.4050 #### [facility] [address] [place], [address] BUN/CRE 16.0 RATIO Normal 10-20 [facility] Comment on above: Performed By: #### L 500.4100, L502.0500, L500.4050 #### [facility] [address] [place], [address] CA,Total 10.3 mg/dL High 8.5-10.1 [facility] Comment on above: Performed By: #### L 500.4100, L502.0500, L500.4050 #### [facility] [address] [place], [address] Chloride [Moles/Vol] 108 mmol/L High 98-107 [facility] Comment on above: Performed By: #### L 500.4100, L502.0500, L500.4050 #### [facility] [address] [place], [address] CO2 [Moles/Vol] 24.0 mmol/L Normal 21.0-32.0 [facility] Comment on above: Performed By: #### L 500.4100, L502.0500, L500.4050 #### [facility] [address] [place], [address] Creatinine [Mass/Vol] 1.00 mg/dL Normal 0.70-1.30 [facility] Comment on above: Result Comment: The validity of the calculated GFR GFRAA in patients over 70 years has not been determined. Clinical correlation is essential. Performed By: #### L 500.4100, L502.0500, L500.4050 #### [facility] [address] [place], [address] EST GFR - AA 95 mL/min Normal >60 [facility] Comment on above: Result Comment: Afri can [place] GFR Calc Performed By: #### L 500.4100, L502.0500, L500.4050 #### [facility] [address] [place], [address] GAP 5 Normal 5-15 [facility] Comment on above: Performed By: #### L 500.4100, L502.0500, L500.4050 #### [facility] [address] [place], [address] GFR/1.73 sq M.predicted among non-blacks MDRD (S/P/Bld) [Vol rate/Area] 79 mL/min/{1.73_m2} Normal >60 [facility] Comment on above: Result Comment: Non- GFR Calc Performed By: #### L 500.4100, L502.0500, L500.4050 #### [facility] [address] [place], [address] Globulin (S) [Mass/Vol] 3.6 g/dL Normal 2.2-4.2 [facility] Comment on above: Performed By: #### L 500.4100, L502.0500, L500.4050 #### [facility] [address] [place], [address] Glucose [Mass/Vol] 119 mg/dL High 74-106 [facility] Comment on above: Result Comment: Fast ing Glucose result from 100 to 125 mg/dL suggests IMPAIRED HOMEOSTASIS per A.D.A. criteria. Performed By: #### L 500.4100, L502.0500, L500.4050 #### [facility] [address] [place], [address] Potassium [Moles/Vol] 4.3 mmol/L Normal 3.5-5.1 [facility] Comment on above: Performed By: #### L 500.4100, L502.0500, L500.4050 #### [facility] [address] [place], [address] Sodium [Moles/Vol] 138 mmol/L Normal 136-145 [facility] Comment on above: Performed By: #### L 500.4100, L502.0500, L500.4050 #### [facility] [address] [place], [address] T PROT 7.3 g/dL Normal 6.4-8.2 [facility] Comment on above: Performed By: #### L 500.4100, L502.0500, L500.4050 #### [facility] [address] [place], [address] Urea nitrogen [Mass/Vol] 16 mg/dL Normal 7-18 [facility] Comment on above: Performed By: #### L 500.4100, L502.0500, L500.4050 #### [facility] [address] [place], [address] Lipid Profileon 09-10-2024 Cholesterol [Mass/Vol] 118 mg/dL Normal 200 [facility] Comment on above: Result Comment: <200 mg/dL Desirable 200-240 mg/dL Borderline >240 mg/dL High Risk Performed By: #### L 500.4100, L502.0500, L500.4050 #### [facility] [address] [place], [address] Cholesterol in HDL [Mass/Vol] 39 mg/dL Low [facility] Comment on above: Result Comment: The drugs N-Acetylcysteine and Metamizole may falsely depress this assay. Reference Range HDL <40 mg/dL Low HDL Cholesterol HDL >or= 60 mg/dL High HDL Cholesterol Performed By: #### L 500.4100, L502.0500, L500.4050 #### [facility] [address] [place], [address] Cholesterol in LDL [Mass/Vol] 55 mg/dL Normal 0-130 [facility] Comment on above: Performed By: #### L 500.4100, L502.0500, L500.4050 #### [facility] [address] [place], [address] Cholesterol in VLDL [Mass/Vol] 24 mg/dL Normal 5-40 [facility] Comment on above: Performed By: #### L 500.4100, L502.0500, L500.4050 #### [facility] [address] [place], [address] Triglyceride [Mass/Vol] 121 mg/dL Normal [facility] Comment on above: Result Comment: The drugs N-Acetylcysteine and Metamizole may falsely depress this assay. Serum Triglycerides Reference Interval Normal <150 mg/dL Borderline high 150 - 199 mg/dL High 200 - 499 mg/dL Very High > or = 500 mg/dL Performed By: #### L 500.4100, L502.0500, L500.4050 #### [facility] [address] [place], [address] Microalbumin,Random Urineon 09-10-2024 MICROALBUMIN,UR 11.2 mg/L Normal NO RANGE EST. [facility] Comment on above: Performed By: #### L 500.4100, L502.0500, L500.4050 #### [facility] [address] [place], [address] Extremity Upper without Cont raon 08-01-2024 Extremity Upper without Contra [facility] Imaging Services [address] [place] [address] Extremity Upper without Contra MR#: [id number] Acct: [id number] Name: ALBIN ISSA Rep #: [id number] : 1955 M 69 From: Jhon Gage MD PCP: Dr. Speedy Boswell MD Status: REG CLI Study: Extremity Upper without Contra Date of Exam: 0 08/01/24 Exam# [id number] Ordering Dr: Speedy Boswell MD [id number] EXAM: CT RIGHT UPPER EXTREMITY WITHOUT INTRAVENOUS [...] EDT , CC: Dr. Speedy Boswell MD Ground Support Equipment Mechanic: Signed Normal [facility] Extremity Upper without Contra [facility] Imaging Services [address] [place] [address] Extremity Upper without Contra MR#: [id number] Acct: [id number] Name: ALBIN ISSA Rep #: [id number] : 1955 69 From: Jhon Gage MD PCP: Dr. Speedy Boswell MD Status: REG CLI Study: Extremity Upper without Contra Date of Exam: 0 08/01/24 Exam# [id number] Ordering Dr: Speedy Boswell MD [id number] EXAM: CT LEFT UPPER EXTREMITY WITHOUT INTRAVENOUS [...] EDT , CC: Dr. Speedy Boswell MD Ground Support Equipment Mechanic: Signed Normal [facility] Emergency Department Summary on 06-29-2024 Emergency Department Summary [facility] Medical Records Department [address] [place] [address] Emergency Department Summary 06/29/24 MR#: [id number] Acct: [id number] Name: ALBIN ISSA Rep #: [id number] : 1955 69 From: Joce Serrano MD [...] similar symptoms: No Recent Illness/Hospitalizati on: Yes [facility] Medical History Coronary atherosclerosis of bypass [...] (gastroesophageal reflux disease) Atherosclerotic heart disease of [place] coronary artery without angina pectoris Shortness of breath History of 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 alf use of drug Ischemic cardiomyopathy ( 10/30/23) [...] 81 mg chewable tablet 81 mg PO [facility] Heart health 06/09/17 06/10/24 History pantoprazole 40 [...] 20 mEq) (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 Normal [facility] Knee 4 or More Viewson 06-29 Knee 4 or More Views [facility] Imaging Services [address] [place], [place] [address] Knee 4 or More Views MR#: [id number] Acct: [id number] Name: ALBIN ISSA Rep #: [id number] : 1955 M 69 From: Francisco Javier Donaldson MD PCP: Dr. Speedy Boswell MD Status: [facility] Study: Knee 4 or More Views Date of Exam: 06/29/24 Exam# [id number] Ordering Dr: Joce Serrano MD [id number] INDICATION: Trauma, knee injury with pain EXAMINATION/TECHNIQUE [...] Francisco Javier Donaldson MD at 21:40 EDT Reading Location ID and State: [facility] / [place] Tel , Service support , CC: Dr. Speedy Boswell MD; Dr. Joce Serrano MD Ground Support Equipment Mechanic: Signed Normal [facility] Shoulder min 2 Viewson 06-29 Shoulder min 2 Views [facility] Imaging Services [address] [place], [place] [id number] Shoulder min 2 Views MR#: [id number] Acct: [id number] Name: ALBIN ISSA Rep #: [id number] : 1955 M 69 From: Francisco Javier Donaldson MD PCP: Dr. Speedy Boswell MD Status: DEP ER Study: Shoulder min 2 Views Date of Exam: 06/29/24 Exam# [id number] Ordering Dr: Joce Serrano MD [id number] INDICATION: Trauma, shoulder injury and pain EXAMINATION/TECHNIQUE [...] Speedy Boswell MD; Dr. Joce Serrano MD Ground Support Equipment Mechanic: Signed [facility] Office Visiton 03-30-2024 Follow-up visit [id number] Albin Issa 1955 Date Provider Department Center 03/30/2024 Margaret-KEL NIELSEN [facility] None Family History Problem Relation Age of Onset Heart attack Mother Cancer Father Comments: liver Family Status - Relation Status Age at Mother Father Daughter Alive Level of Service:46903 IN OFFICE/OUTPT VISIT,PROCEDURE ONLY Reason for Visit and Comments: Follow-up [065257] - USG left ankle injection [facility] PATINSon 03-30-2024 [facility] Orthopaedics and Sports Medicine Patient Care [...] the office as soon as possible at [phone] [facility] Progress Noteon 03-30-2024 Progress Note [facility] [address] [place] [address] Dept: [phone] Dept Chief Complaint Patient presents with Follow-up [...] prior to signing but minor errors in shoe maker may have occurred. Normal [facility] No Panel InformationOrdered By: Hannah Howe on 01-16-2024 Prostate Specific Antigen Screen 0.33 ng/mL 0.00-4.00 [facility] Comment on above: This test was perfor med using the TPSA assay method for the[employer] chemistry system. Values obtained with differentassay methods cannot be used interchangably.When changing PSA assays in the course of monitoring apatient, additional sequential testing should be carriedout to confirm baseline values. EP PROCEDURE - EPS/ABLATION/ DEVICEon 01-08-2024 EP PROCEDURE - EPS/ABLATION/DEVICE Pt is a 68M ICM s/p [place] ICD, CAD s/p NM 2004, s/p CABG 2005, s/p right AKA amputation, HLD. He was evaluated in EP clinic on 11/21/2023 for consultation. He reported occasional dyspnea on exertion. 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 He underwent successful placement of additional RA lead. Device generator exchanged. Excellent lead parameters. IV Vancomycin is utilized because: Physician/GLASS EMBOSSER/PA or pharmacist documentation of increased MRSA rate, either facility-wide or operation-specific Documentation of continuous inpatient stay more than 24 hours prior to the principal procedure PLAN: 1) Resume medications, hold AC for 24 hours. 2) Wound care 3) CXR 4) Aquacel patch for 7 day. 5) Device follow up in 1-2 weeks Table formatting from the original result was not included. Albin Oneal Luis Manuel EP Procedure - EPS/Ablation/Device Ordering Physician: DAVID RAMIREZ Order #: [id number] Study Date: 01/06/2024 Patient Information Name MRN Description Albin Issa [id number] 68 y.o. male Physicians Panel Physicians Referring [...] s/p [place] ICD, CAD s/p [place] 2004, s/p CABG 2005, s/p right AKA amputation, HLD. He was evaluated in EP clinic on 11/21/2023 for consultation. He reported occasional dyspnea on exertion. 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 He underwent successful placement of additional RA lead. Device generator exchanged. Excellent lead parameters. IV Vancomycin is utilized because: Physician/GLASS EMBOSSER/PA or pharmacist documentation of increased MRSA rate, [...] - Explanted Model/Cat number: [id number] Serial number: [id number] Date Explanted: 01/06/2024 Pocket Location: Pre-pectoral As of 01/06/2024 Status: Explanted Lead Securement: 2 set screws torqued Defibrillator Crd [id number] Fortify Asr Parylene 2 - [id number] - Implanted Inventory item: DEFIBRILLATOR CRD [id number] FORTIFY ASR PARYLENE 2 Model/Cat number: [id number] Serial number: [id number] Enterer: GUTIERREZ VASCULAR Date Implanted: 01/06/2024 Initial Device: No Pocket Location: Pre-pectoral P (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 Normal [facility] CHEM 6 (LYTES, BUN CREA)on 0 01-07-2024 Anion gap [Moles/Vol] 13 mmol/L Normal 7-17 [facility] Comment on above: Performed By: #### Nilam HOUSE CHM6 #### [facility] (DEFAULT) [address] [place] [address] Chloride [Moles/Vol] 105 mmol/L Normal 98-108 [facility] Comment on above: Performed By: #### Nilam HOUSE CHM6 #### [facility] (DEFAULT) [address] [place] [address] CO2 [Moles/Vol] 25 mmol/L Normal 21-31 [facility] Comment on above: Performed By: #### Nilam HOUSE CHM6 #### [facility] (DEFAULT) [address] [place] [address] Creatinine [Mass/Vol] 1.24 mg/dL Normal 0.70-1.30 [facility] Comment on above: Performed By: #### Nilam HOUSE CHM6 #### [facility] (DEFAULT) [address] [place] [address] GFR/1.73 sq M.predicted among non-blacks MDRD (S/P/Bld) [Vol rate/Area] 63 mL/min/{1.73_m2} Normal >=60 [facility] Comment on above: Result Comment: Repo rted eGFR is based on the CKD-EPI 2020 equation using creatinine, age, and sex. Performed By: #### Nilam HOUSE CHM6 #### [facility] (DEFAULT) [address] [place] [address] Potassium [Moles/Vol] 4.2 mmol/L Normal 3.5-5.0 [facility] Comment on above: Performed By: #### Nilam HOUSE CHM6 #### [facility] (DEFAULT) [address] [place] [address] Sodium [Moles/Vol] 139 mmol/L Normal 135-145 [facility] Comment on above: Performed By: #### Nilam HOUSE CHM6 #### [facility] (DEFAULT) [address] [place] [address] Urea nitrogen [Mass/Vol] 19 mg/dL Normal 7-25 [facility] Comment on above: Performed By: #### Nilam HOUSE CHM6 #### [facility] (DEFAULT) [address] [place] [address] Urea nitrogen/Creatinine [Mass ratio] 15 mg/mg Normal [facility] Comment on above: Performed By: #### Nilam HOUSE CHM6 #### [facility] (DEFAULT) [address] [place] [address] Anion gap [Moles/Vol] 13 mmol/L 7 - 17 mmol/L [facility] Chloride [Moles/Vol] 105 mmol/L 98 - 10 8 mmol/L [facility] CO2 [Moles/Vol] 25 mmol/L 21 - 31 mmol/L [facility] Creatinine [Mass/Vol] 1.24 mg/dL 0.70 - 1.30 mg/dL [facility] eGFR, CKD-EPI, Male 63 - PINF [facility] Comment on above: Reported eGFR is bas ed on the CKD-EPI 2020 equation using creatinine, age, and sex. Potassium [Moles/Vol] 4.2 mmol/L 3.5 - 5.0 mmol/L [facility] Sodium [Moles/Vol] 139 mmol/L 135 - 145 mmol/L [facility] Urea nitrogen [Mass/Vol] 19 mg/dL 7 - 25 mg/dL [facility] Urea nitrogen/Creatinine [Mass ratio] 15 mg/mg [facility] DEVICE EVALUATION (SCANNED)o n 01-07-2024 [facility] Radiology Study observation (narrative) [facility] EXTRA LAVENDER TOPon 024 [facility] MAGNESIUMon 01-07-2024 Magnesium [Mass/Vol] 2.1 mg/dL Normal 1.6-2.6 [facility] Comment on above: Performed By: #### Nilam HOUSE CHM6 #### [facility] (DEFAULT) [address] [place] [address] Interpretation and review of laboratory results Normal [facility] Magnesium [Mass/Vol] 2.1 mg/dL 1.6 - 2 .6 mg/dL [facility] No Panel Informationon 01-07 [facility] CBC AND ELECTRONIC DIFFon Basophils (Bld) [#/Vol] 0.07 10*3/uL Normal 0.00-0.09 [facility] Comment on above: Performed By: #### L AB980 #### [facility] (DEFAULT) [address] [place] [address] Basophils/100 WBC (Bld) 0.8 % Normal [facility] Comment on above: Performed By: #### L AB980 #### [facility] (DEFAULT) [address] [place] [address] DIFF STATUS Electronic Differential Normal [facility] Comment on above: Performed By: #### L AB980 #### [facility] (DEFAULT) [address] [place] [address] Eosinophils (Bld) [#/Vol] 0.32 10*3/uL Normal 0.00-0.48 [facility] Comment on above: Performed By: #### L AB980 #### [facility] (DEFAULT) [address] [place] [address] Eosinophils/100 WBC (Bld) 3.7 % Normal [facility] Comment on above: Performed By: #### L AB980 #### [facility] (DEFAULT) [address] [place] [address] Hematocrit (Bld) [Volume fraction] 41.5 % Normal 39.6-48.8 [facility] Comment on above: Performed By: #### L AB980 #### [facility] (DEFAULT) [address] [address] Hemoglobin (Bld) [Mass/Vol] 13.8 g/dL Normal 13.4-16.8 [facility] Comment on above: Performed By: #### L AB980 #### [facility] (DEFAULT) [address] [place] [address] Immature Grans % 0.6 % Normal [facility] Comment on above: Performed By: #### L AB980 #### [facility] (DEFAULT) [address] [place] [address] Immature Grans Absolute 0.05 K/uL Normal <=0.07 [facility] Comment on above: Performed By: #### L AB980 #### [facility] (DEFAULT) [address] [place] [address]689 Lymphocytes (Bld) [#/Vol] 2.14 10*3/uL Normal 0.83-3.57 [facility] Comment on above: Performed By: #### L AB980 #### [facility] (DEFAULT) [address] [place] [address]897 Lymphocytes/100 WBC (Bld) 24.7 % Normal [facility] Comment on above: Performed By: #### L AB980 #### [facility] (DEFAULT) [address] [place] [address]048 MCV (RBC) [Entitic vol] 89.2 fL Normal 79.0-94.5 [facility] Comment on above: Performed By: #### L AB980 #### [facility] (DEFAULT) [address] [place] [address]21 Mean Cell Hgb 29.7 pg Normal 26.1-33.3 [facility] Comment on above: Performed By: #### L AB980 #### [facility] (DEFAULT) [address] [place] [address]218 Mean Cell Hgb Conc 33.3 g/dL Normal 31.9-36.5 [facility] Comment on above: Performed By: #### L AB980 #### [facility] (DEFAULT) [address] [place] [address]38[address] Monocytes (Bld) [#/Vol] 0.64 10*3/uL Normal 0.24-0.93 [facility] Comment on above: Performed By: #### L AB980 #### [facility] (DEFAULT) [address] [address] Monocytes/100 WBC (Bld) 7.4 % Normal [facility] Comment on above: Performed By: #### L AB980 #### [facility] (DEFAULT) [address] [address] Nucleated RBC 0.0 /100 WBC Normal <=0.2 [facility] Comment on above: Performed By: #### L AB980 #### [facility] (DEFAULT) [address] [place] [address] Platelet mean volume (Bld) [Entitic vol] 9.3 fL Normal 8.7-12.3 [facility] Comment on above: Performed By: #### L AB980 #### [facility] (DEFAULT) [address] [place] [address]1561 Platelets (Bld) [#/Vol] 220 10*3/uL Normal 146-337 [facility] Comment on above: Performed By: #### L AB980 #### [facility] (DEFAULT) [address] [place] [address] 11396 RBC (Bld) [#/Vol] 4.65 10*6/uL Normal 4.38-5.83 [facility] Comment on above: Performed By: #### L AB980 #### [facility] (DEFAULT) [address] [place] [address] 18278 RBC Distribution 13.0 % Normal 10.9-14.3 [facility] Comment on above: Performed By: #### L AB980 #### [facility] (DEFAULT) [address] [place] [address] 35069 Segs + Bands Auto 62.8 % Normal [facility] Comment on above: Performed By: #### L AB980 #### [facility] (DEFAULT) [address] [place] [address] Segs + Bands,Absolute Auto 5.44 K/uL Normal 1.57-6.19 [facility] Comment on above: Performed By: #### L AB980 #### [facility] (DEFAULT) [address] [place] [address] 29062 WBC (Bld) [#/Vol] 8.66 10*3/uL Normal 3.73-10.10 [facility] Comment on above: Performed By: #### L AB980 #### [facility] (DEFAULT) [address] [place] [address]4563 Basophils (Bld) [#/Vol] 0.07 10*3/uL 0.00 - 0.09 K/uL [facility] Basophils/100 WBC (Bld) 0.8 % [facility] Differential cell count method Nom (Bld) Electronic Differential [facility] Eosinophils (Bld) [#/Vol] 0.32 10*3/uL 0.00 - 0.48 K/uL [facility] [facility] Eosin[facility]/100 WBC (Bld) 3.7 % [facility] Erythrocyte distribution width (RBC) [Ratio] 13.0 % 10.9 - 14.3 % [facility] Hematocrit (Bld) [Volume fraction] 41.5 % 39.6 - 48.8 % [facility] Hemoglobin (Bld) [Mass/Vol] 13.8 g/dL 13.4 - 16.8 g/dL [facility] Immature granulocytes (Bld) [#/Vol] 0.05 10*3/uL NINF - 0.07 K/uL [facility] Immature granulocytes/100 WBC (Bld) 0.6 % [facility] Lymphocytes (Bld) [#/Vol] 2.14 10*3/uL 0.83 - 3.57 K/uL [facility] Lymphocytes/100 WBC (Bld) 24.7 % [facility] MCH (RBC) [Entitic mass] 29.7 pg 26.1 - 33.3 pg [facility] MCHC (RBC) [Mass/Vol] 33.3 g/dL 31.9 - 36.5 g/dL [facility] MCV (RBC) [Entitic vol] 89.2 fL 79.0 - 94.5 fL [facility] Monocytes (Bld) [#/Vol] 0.64 10*3/uL 0.24 - 0.93 K/uL [facility] Monocytes/100 WBC (Bld) 7.4 % [facility] Neutrophils (Bld) [#/Vol] 5.44 10*3/uL 1.57 - 6.19 K/uL [facility] Nucleated RBC/100 WBC (Bld) [Ratio] 0.0 % [facility] Platelet mean volume (Bld) [Entitic vol] 9.3 fL 8.7 - 12.3 fL [facility] Platelets (Bld) [#/Vol] 220 10*3/uL 146 - 337 K/uL [facility] RBC (Bld) [#/Vol] 4.65 10*6/uL [facility] Segmented neutrophils/100 WBC (Bld) 62.8 % [facility] WBC (Bld) [#/Vol] 8.66 10*3/uL 3.73 - 10. 10 K/uL [facility] CHEM 7 (LYTES,BUN,CREA,GLUC) on 01-06-2024 Anion gap [Moles/Vol] 14 mmol/L Normal 7-17 [facility] Comment on above: Performed By: #### C HM7 #### [facility] (DEFAULT) [address] [place] [address] Chloride [Moles/Vol] 105 mmol/L Normal 98-108 [facility] Comment on above: Performed By: #### C HM7 #### [facility] (DEFAULT) [address] [place] [address] 42045 CO2 [Moles/Vol] 24 mmol/L Normal 21-31 [facility] Comment on above: Performed By: #### C HM7 #### [facility] (DEFAULT) [address] [place] [address] 93542 Creatinine [Mass/Vol] 1.23 mg/dL Normal 0.70-1.30 [facility] Comment on above: Performed By: #### C HM7 #### [facility] (DEFAULT) [address] [place] [address] 34791 GFR/1.73 sq M.predicted among non-blacks MDRD (S/P/Bld) [Vol rate/Area] 64 mL/min/{1.73_m2} Normal >=60 [facility] Comment on above: Result Comment: Repo rted eGFR is based on the CKD-EPI 2020 equation using creatinine, age, and sex. Performed By: #### C HM7 #### [facility] (DEFAULT) [address] [place] [address]1966 Glucose [Mass/Vol] 128 mg/dL High 70-99 [facility] Comment on above: Performed By: #### C HM7 #### [facility] (DEFAULT) [address] [place] [address] 13952 Osmolality [Osmolality] 296 mosm/kg Normal 278-305 [facility] Comment on above: Performed By: #### C HM7 #### [facility] (DEFAULT) [address] [place] [address] Potassium [Moles/Vol] 4.2 mmol/L Normal 3.5-5.0 [facility] Comment on above: Performed By: #### C HM7 #### [facility] (DEFAULT) [address] [place] [address] 95618 Sodium [Moles/Vol] 139 mmol/L Normal 135-145 [facility] Comment on above: Performed By: #### C HM7 #### [facility] (DEFAULT) [address] [place] [address] 67350 Urea nitrogen [Mass/Vol] 20 mg/dL Normal 7-25 [facility] Comment on above: Performed By: #### C HM7 #### [facility] (DEFAULT) [address] [place] [address] 85517 Urea nitrogen/Creatinine [Mass ratio] 16 mg/mg Normal [facility] Comment on above: Performed By: #### C HM7 #### [facility] (DEFAULT) [address] [place] [address]402 Anion gap [Moles/Vol] 14 mmol/L 7 - 17 mmol/L [facility] Chloride [Moles/Vol] 105 mmol/L 98 - 10 8 mmol/L [facility] CO2 [Moles/Vol] 24 mmol/L 21 - 31 mmol/L [facility] Creatinine [Mass/Vol] 1.23 mg/dL 0.70 - 1.30 mg/dL [facility] eGFR, CKD-EPI, Male 64 - PINF [facility] Comment on above: Reported eGFR is bas ed on the CKD-EPI 2020 equation using creatinine, age, and sex. Glucose [Mass/Vol] 128 mg/dL High 70 - 99 mg/dL [facility] Interpretation and review of laboratory results Abnormal [facility] Osmolality Calc [Osmolality] 296 [facility] Potassium [Moles/Vol] 4.2 mmol/L 3.5 - 5.0 mmol/L [facility] Sodium [Moles/Vol] 139 mmol/L 135 - 145 mmol/L [facility] Urea nitrogen [Mass/Vol] 20 mg/dL 7 - 25 mg/dL [facility] Urea nitrogen/Creatinine [Mass ratio] 16 mg/mg [facility] PT,INR,PTTon 01-06-2024 aPTT Coag (Bld) [Time] 26.8 s Normal 24.0-34.3 [facility] Comment on above: Performed By: #### P TPTT #### [facility] (DEFAULT) [address] [place] [address]1965 INR Coag (PPP) [Relative time] 1.0 {INR} Normal 0.9-1.1 [facility] Comment on above: Performed By: #### P TPTT #### [facility] (DEFAULT) [address] [place] [address] 19575 PT Coag (PPP) [Time] 12.6 s Normal 11.9-14.2 [facility] Comment on above: Performed By: #### P TPTT #### [facility] (DEFAULT) [address] [place] [address] 12869 aPTT Coag (PPP) [Time] 26.8 s [facility] INR Coag (Bld) [Relative time] 1.0 {INR} 0.9 - 1.1 [facility] Interpretation and review of laboratory results Normal [facility] PT Coag (PPP) [Time] 12.6 s [facility] XR CHEST PA AND LATERAL 2 [...] evaluation. No acute pulmonary finding. Cardiomegaly. Normal [facility] XR Chest PA and Lateralon EXAM: [...] Limited evaluation. No acute pulmonary finding. Cardiomegaly. [facility] Radiology Study observation (narrative) [facility] XR Chest PA and LateralOrder ed By: Renetta Burgos on 01-06-2024 [facility] Work Phone: Basophil percentageOrdered B y: Speedy Boswell on 11-28-2023 Chloride [Moles/Vol] 109 mmol/L 98-107 [facility] Cholesterol [Mass/Vol] 96 mg/dL <200 [facility] Comment on above: <200 mg/dL Desirable 200-240 mg/dL Borderline >240 mg/dL High Risk Glucose [Mass/Vol] 125 mg/dL 74-106 [facility] Comment on above: Fasting Glucose resu lt from 100 to 125 mg/dL suggests IMPAIRED HOMEOSTASIS per A.D.A. criteria. Potassium [Moles/Vol] 4.1 mmol/L 3.5-5.1 [facility] Sodium [Moles/Vol] 141 mmol/L 136-145 [facility] Triglyceride [Mass/Vol] 91 mg/dL <199 [facility] Comment on above: The drugs N-Acetylcy steine and Metamizole may falsely depress this assay.Serum Triglycerides Reference Interval Normal <150 mg/dL Borderline high 150 - 199 mg/dL High 200 - 499 mg/dL Very High > or = 500 mg/dL Laboratory - Chemistry and C hemistry - challengeOrdered By: Speedy Boswell on 11-28-2023 CO2 [Moles/Vol] 26.0 mmol/L 21.0-32.0 [facility] Urea nitrogen/Creatinine [Mass ratio] 11.7 mg/mg 10-20 [facility] No Panel InformationOrdered By: Speedy Boswell on 11-28-2023 Estimated GFR (MDRD) Amer 72 mL/min >60 [facility] Comment on above: GFR Calc Estimated GFR (MDRD) Non-Af Amer 59 mL/min >60 [facility] Comment on above: Non- GFR Calc Serum or plasma calcium raul urement (mass/volume)Ordered By: Speedy Boswell on 11-28-2023 Calcium [Mass/Vol] 8.9 mg/dL 8.5-10.1 [facility] Serum or plasma cholesterol in HDL measurement (mass/volume)Ordered By: Speedy Boswell on 11-28-2023 Cholesterol in HDL [Mass/Vol] 32 mg/dL >40 [facility] Comment on above: The drugs N-Acetylcy steine and Metamizole may falsely depress this assay. Reference Range HDL <40 mg/dL Low HDL Cholesterol HDL >or= 60 mg/dL High HDL Cholesterol Serum or plasma cholesterol in VLDL measurement (mass/volume)Ordered By: Speedy Boswell on 11-28-2023 Cholesterol in VLDL [Mass/Vol] 18 mg/dL 5-40 [facility] Serum or plasma creatinine m easurement (mass/volume)Ordered By: Speedy Boswell on 11-28-2023 Creatinine [Mass/Vol] 1.28 mg/dL 0.70-1.30 [facility] Comment on above: The validity of the calculated GFR & GFRAA in patients over 70 years has not been determined. Clinical correlation is essential. Serum or plasma low density lipoprotein (LDL) cholesterol measurement (mass/volume)Ordered By: Speedy Boswell on 11-28-2023 Cholesterol in LDL [Mass/Vol] 46 mg/dL 0-130 [facility] Serum or plasma urea nitroge n measurement (mass/volume)Ordered By: Speedy Boswell on 11-28-2023 Urea nitrogen [Mass/Vol] 15 mg/dL 7-18 [facility] Thin prep Papanicolaou smear with manual screeningOrdered By: Speedy Boswell on 11-28-2023 Thin prep Papanicolaou smear with manual screening 6 5-15 [facility] EP PROCEDURE - EPS/ABLATION/ DEVICEon 11-22-2023 EP PROCEDURE - EPS/ABLATION/DEVICE Left arm venogram demonstrated the L axillary, brachiocephalic, inominate all patent to the SVC. Recommendations: Atrial lead replacement as planned. Table formatting from the original result was not included. Albin Issa EP Procedure - EPS/Ablation/Device Ordering Physician: DAVID RAMIREZ Order #: [id number] Study Date: 11/21/2023 Patient Information Name MRN Description Albin Issa [id number] 68 y.o. male Physicians Panel Physicians Referring [...] no ABN associated with this order. Normal [facility] CHEM 7 (LYTES,BUN,CREA,GLUC) on 11-21-2023 Anion gap [Moles/Vol] 16 mmol/L Normal 7-17 [facility] Comment on above: Performed By: #### C HM7 #### [facility] (DEFAULT) [address] [place] [address] 28623 Chloride [Moles/Vol] 106 mmol/L Normal 98-108 [facility] Comment on above: Performed By: #### C HM7 #### [facility] (DEFAULT) [address] [place] [address] 37179 CO2 [Moles/Vol] 20 mmol/L Low 21-31 [facility] Comment on above: Performed By: #### C HM7 #### [facility] (DEFAULT) [address] [place] [address] 92540 Creatinine [Mass/Vol] 1.39 mg/dL High 0.70-1.30 [facility] Comment on above: Performed By: #### C HM7 #### [facility] (DEFAULT) [address] [place] [address] 40210 GFR/1.73 sq M.predicted among non-blacks MDRD (S/P/Bld) [Vol rate/Area] 55 mL/min/{1.73_m2} Low >=60 [facility] Comment on above: Result Comment: Repo rted eGFR is based on the CKD-EPI 2020 equation using creatinine, age, and sex. Performed By: #### C HM7 #### [facility] (DEFAULT) [address] [place] [address] 58826 Glucose [Mass/Vol] 103 mg/dL High 70-99 [facility] Comment on above: Performed By: #### C HM7 #### [facility] (DEFAULT) [address] [place] [address] 84688 Osmolality [Osmolality] 292 mosm/kg Normal 278-305 [facility] Comment on above: Performed By: #### C HM7 #### [facility] (DEFAULT) [address] [place] [address] Potassium [Moles/Vol] 3.9 mmol/L Normal 3.5-5.0 [facility] Comment on above: Performed By: #### C HM7 #### [facility] (DEFAULT) [address] [place] [address] Sodium [Moles/Vol] 138 mmol/L Normal 135-145 [facility] Comment on above: Performed By: #### C HM7 #### [facility] (DEFAULT) [address] [place] [address] Urea nitrogen [Mass/Vol] 22 mg/dL Normal 7-25 [facility] Comment on above: Performed By: #### C HM7 #### [facility] (DEFAULT) [address] [place] [address] 22368 Urea nitrogen/Creatinine [Mass ratio] 16 mg/mg Normal [facility] Comment on above: Performed By: #### C HM7 #### [facility] (DEFAULT) [address] [place] [address] 54685 DEVICE EVALUATION (SCANNED)o n 11-21-2023 [facility] Radiology Study observation (narrative) [facility] Office Visiton 08-26-2023 Follow-up visit [id number] Albin Issa 1955 M Date Provider Department Center 08/26/2023 [facility] None Family History Problem Relation Age of Onset Heart attack Mother Cancer Father Comments: liver Family Status - Relation Status Age at Mother Father Daughter Alive Level of Service:97384 IN OFFICE/OUTPT VISIT,PROCEDURE ONLY Reason for Visit and Comments: Follow-up [846494] - USG left subtalar joint injection Normal [facility] PATINSon 08-26-2023 [facility] Orthopaedics and Sports Medicine Patient Care [...] the office as soon as possible at [phone] [facility] Progress Noteon 08-26-2023 Progress Note [facility] [address] [facility] [address] Dept: [phone] Dept Chief Complaint Patient presents with Follow-up [...] prior to signing but minor errors in shoe maker may have occurred. [facility] 36on 08-12-2023 36 Patient was called with a VM left to call our office back to schedule injection. Scheduling Information: Saturday or in [place] Saturday afternoon only 1st available- 30 min appt [facility] 36 Name of Caller: Mauro Contact Reason for Appointment: Pt would like to get another USG left subtalar joint If he does not answer please leave a voicemail. Please advise. Office Name: [facility] Absolute lymphocyte countOrd ered By: ED PROVIDER on 10-27-2022 Lymphocytes Auto (Unsp spec) [#/Vol] 0.99 10*3/uL 0.83-4.51 [facility] Basophil percentageOrdered B y: ED PROVIDER on 10-27-2022 Basophils/100 WBC (Bld) 0.5 % 0-1 [facility] Chloride [Moles/Vol] 106 mmol/L 98-107 [facility] Eosinophils/100 WBC (Bld) 3.5 % 0-5 [facility] Glucose [Mass/Vol] 103 mg/dL 74-106 [facility] Comment on above: Fasting Glucose resu lt from 100 to 125 mg/dL suggests IMPAIRED HOMEOSTASIS per A.D.A. criteria. Neutrophils (Bld) [#/Vol] 3.7 10*3/uL 2.0-7.7 [facility] Neutrophils/100 WBC (Bld) 65.1 % 47-70 [facility] Potassium [Moles/Vol] 4.0 mmol/L 3.5-5.1 [facility] Comment on above: Slight Hemolysis, Re sult may be falsely increased. Sodium [Moles/Vol] 138 mmol/L 136-145 [facility] WBC (Bld) [#/Vol] 5.7 10*3/uL 4.4-11.0 [facility] Blood erythrocytes count (nu mber/volume)Ordered By: ED PROVIDER on 10-27-2022 RBC (Bld) [#/Vol] 4.65 10*6/uL 4.6-6.2 [facility] Blood hemoglobin measurement (mass/volume)Ordered By: ED PROVIDER on 10-27-2022 Hemoglobin (Bld) [Mass/Vol] 14.7 g/dL 13.0-16.5 [facility] Blood lymphocytes/100 leukoc ytesOrdered By: ED PROVIDER on 10-27-2022 Lymphocytes/100 WBC (Bld) 17.4 % 19-41 [facility] Blood monocytes/100 leukocyt esOrdered By: ED PROVIDER on 10-27-2022 Monocytes/100 WBC (Bld) 13.0 % 0-10 [facility] Blood platelet mean volumeOr dered By: ED PROVIDER on 10-27-2022 Platelet mean volume (Bld) [Entitic vol] 9.8 fL 6.2-12.0 [facility] COVID-19 virus antigen assay Ordered By: ED PROVIDER on 10-27-2022 SARS-CoV-2 (COVID-19) Ag IA.rapid Ql (Resp) [facility] Determination of erythrocyte mean corpuscular volume (MCV)Ordered By: ED PROVIDER on 10-27-2022 MCV (RBC) [Entitic vol] 91.6 fL 80-94 [facility] Hematocrit Auto (Bld) [Volum e fraction]Ordered By: ED PROVIDER on 10-27-2022 Hematocrit (Bld) [Volume fraction] 42.6 % 40-54 [facility] Laboratory - Chemistry and C hemistry - challengeOrdered By: ED PROVIDER on 10-27-2022 CO2 [Moles/Vol] 27.0 mmol/L 21.0-32.0 [facility] Urea nitrogen/Creatinine [Mass ratio] 11.9 mg/mg 10-20 [facility] Laboratory - Hematology and Cell countsOrdered By: ED PROVIDER on 10-27-2022 Erythrocyte distribution width (RBC) [Entitic vol] 45.2 fL 35.1-43.9 [facility] Erythrocyte distribution width (RBC) [Ratio] 13.4 % 11.6-14.6 [facility] Immature granulocytes/100 WBC (Bld) 0.500 % 0.0-0.9 [facility] Comment on above: IG% - Immature Granu locytes (promyelocytes, myelocytes and metamyelocytes) > 1% indicates that a LEFT SHIFT is Present. MCH (RBC) [Entitic mass] 31.6 pg 27.0-32.0 [facility] Nucleated RBC/100 WBC (Bld) [Ratio] 0 % 0-5 [facility] MCHC Auto (RBC) [Mass/Vol]Or dered By: ED PROVIDER on 10-27-2022 MCHC (RBC) [Mass/Vol] 34.5 g/dL 32-36 [facility] No Panel InformationOrdered By: ED PROVIDER on 10-27-2022 Estimated Creatinine Clearance Calc 51.75 ml/min [facility] Estimated GFR (MDRD) Amer 68 mL/min >60 [facility] Comment on above: GFR Calc Estimated GFR (MDRD) Non-Af Amer 56 mL/min >60 [facility] Comment on above: Non- GFR Calc Platelets bldOrdered By: ED PROVIDER on 10-27-2022 Platelets (Bld) [#/Vol] 159 10*3/uL 150-450 [facility] Serum or plasma calcium raul urement (mass/volume)Ordered By: ED PROVIDER on 10-27-2022 Calcium [Mass/Vol] 9.8 mg/dL 8.5-10.1 [facility] Serum or plasma creatinine m easurement (mass/volume)Ordered By: ED PROVIDER on 10-27-2022 Creatinine [Mass/Vol] 1.34 mg/dL 0.70-1.30 [facility] Comment on above: The validity of the calculated GFR & GFRAA in patients over 70 years has not been determined. Clinical correlation is essential. Serum or plasma urea nitroge n measurement (mass/volume)Ordered By: ED PROVIDER on 10-27-2022 Urea nitrogen [Mass/Vol] 16 mg/dL 7-18 [facility] Thin prep Papanicolaou smear with manual screeningOrdered By: ED PROVIDER on 10-27-2022 Thin prep Papanicolaou smear with manual screening 5 5-15 [facility] No Panel Informationon 06-20 Prostate Specific Antigen Screen 0.41 ng/mL 0.00-4.00 [facility] Work Phone: Comment on above: This test was perfor med using the TPSA assay method for [employer] chemistry system. Values obtained with differentassay methods cannot be used interchangably.When changing PSA assays in the course of monitoring apatient, additional sequential testing should be carriedout to confirm baseline values. Basophil percentageon 2021 Bilirubin [Mass/Vol] 0.40 mg/dL 0.20-1.00 [facility] Work Phone: Comment on above: For patients on eltr ombopag therapy, use of Dimension [place] TBIL is not recommended. Cholesterol [Mass/Vol] 115 mg/dL <200 [facility] Work Phone: Comment on above: <200 mg/dL Desirable 200-240 mg/dL Borderline >240 mg/dL High Risk Protein [Mass/Vol] 7.7 g/dL 6.4-8.2 [facility] Work Phone: Triglyceride [Mass/Vol] 117 mg/dL <199 [facility] Work Phone: Comment on above: The drugs N-Acetylcy steine and Metamizole may falsely depress this assay.Serum Triglycerides Reference Interval Normal <150 mg/dL Borderline high 150 - 199 mg/dL High 200 - 499 mg/dL Very High > or = 500 mg/dL Direct bilirubinon 2 Bilirubin.direct [Mass/Vol] 0.13 mg/dL 0.00-0.30 [facility] Work Phone: Laboratory - Chemistry and C hemistry - challengeon 05-10-2022 ALP [Catalytic activity/Vol] 138 U/L 45-117 [facility] Work Phone: ALT [Catalytic activity/Vol] 37 U/L 16-61 [facility] Work Phone: Globulin (S) [Mass/Vol] 3.8 g/dL 2.2-4.2 [facility] Work Phone: Serum or plasma albumin raul urement (mass/volume)on 05-10-2022 Albumin [Mass/Vol] 3.9 g/dL 3.2-5.0 [facility] Work Phone: Serum or plasma cholesterol in HDL measurement (mass/volume)on 05-10-2022 Cholesterol in HDL [Mass/Vol] 30 mg/dL >40 [facility] Work Phone: Comment on above: The drugs N-Acetylcy steine and Metamizole may falsely depress this assay. Reference Range HDL <40 mg/dL Low HDL Cholesterol HDL >or= 60 mg/dL High HDL Cholesterol Serum or plasma cholesterol in VLDL measurement (mass/volume)on 05-10-2022 Cholesterol in VLDL [Mass/Vol] 23 mg/dL 5-40 [facility] Work Phone: Serum or plasma low density lipoprotein (LDL) cholesterol measurement (mass/volume)on 05-10-2022 Cholesterol in LDL [Mass/Vol] 62 mg/dL 0-130 [facility] Work Phone: Thin prep Papanicolaou smear with manual screeningon 05-10-2022 Thin prep Papanicolaou smear with manual screening 20 U/L 15-37 [facility] Work Phone: [id number] 03-07-2022 Vitamin B6 Lvl 14.0 nmol/L Low 20.0-125.0 [facility] Comment on above: Result Comment: INTE RPRETIVE INFORMATION: Vitamin B6 (Pyridoxal 5-Phosphate) Pyridoxal 5'-phosphate measured in a specimen collected following an 8-hour or overnight fast accurately indicates vitamin B6 nutritional status. Non-fasting specimen concentration reflects recent vitamin intake. This test was developed and its performance characteristics determined by [facility]. It has not been cleared or approved by the [place] Food and Drug Administration. This test was performed in a CLIA certified laboratory and is intended for clinical purposes. Performed By: [facility] [address] [place] [address] Agriculture Specialist: Leyda Carr MD Performed By: #### A 1C, TSH, FT4, ENA1, COPPER, MMA, VITB6 #### [address] [address] #### FOL, B12, IFES, SPE #### [place] [address] IFESon 03-05-2022 IFES Interpretation Immunofixation electrophoresis of serum shows the presence of only polyclonal immunoglobulins (IgG,A,M,[place] and Lambda), No monoclonal protein detected. Normal [facility] Comment on above: Result Comment: Elec tronically Signed by: PANKAJ QUIROZ 03/05/2022 08:24 EDT Performed By: #### A 1C, TSH, FT4, ENA1, COPPER, MMA, VITB6 #### [address] [address] #### FOL, B12, IFES, SPE #### [address] [address] SPEon 03-05-2022 SPE Interpretation Normal serum protein electrophoresis pattern. No abnormality detected. Normal [facility] Comment on above: Result Comment: Elec tronically Signed by: PANKAJ QUIROZ 03/05/2022 08:24 EDT Performed By: #### A 1C, TSH, FT4, ENA1, COPPER, MMA, VITB6 #### [address] [address] #### FOL, B12, IFES, SPE #### [address] [address] METon 03-01-2022 Methylmalonic Acid 172 nmol/L Normal 79-376 [facility] ([place]) Comment on above: Result Comment: This test was developed and its performance characteristics determined by [facility]'s [facility] Pathology and Laboratory Medicine [place] [facility] It has not been cleared or approved by the FDA. -[facility] is regulated under CLIA as qualified to perform high-complexity testing. This test is used for clinical purposes. It should not be regarded as investigational or for research. Performed By: [facility] [address] [place] [address] Hand Collator: Hung Arevalo III, M.D. CLIA#: [id number] Performed By: #### A 1C, TSH, FT4, ENA1, COPPER, MMA, VITB6 #### [place] [address] #### FOL, B12, IFES, SPE #### [address] 03-01-2022 Albumin 3.7 G/dL Normal 3.3-5.0 [facility] Comment on above: Performed By: #### A 1C, TSH, FT4, ENA1, COPPER, MMA, VITB6 #### [place] [address] #### FOL, B12, IFES, SPE #### [place] [address] Alpha 1 0.2 G/dL Normal 0.1-0.4 [facility] Comment on above: Performed By: #### A 1C, TSH, FT4, ENA1, COPPER, MMA, VITB6 #### [place] [address] #### FOL, B12, IFES, SPE #### [place] [address] Alpha 2 0.9 G/dL Normal 0.6-1.2 [facility] Comment on above: Performed By: #### A 1C, TSH, FT4, ENA1, COPPER, MMA, VITB6 #### [address] [address] #### FOL, B12, IFES, SPE #### [address] [address] Beta 1.0 G/dL Normal 0.6-1.3 [facility] Comment on above: Performed By: #### A 1C, TSH, FT4, ENA1, COPPER, MMA, VITB6 #### [place] [address] #### FOL, B12, IFES, SPE #### [address] [address] Gamma 1.1 G/dL Normal 0.7-1.6 [facility] Comment on above: Performed By: #### A 1C, TSH, FT4, ENA1, COPPER, MMA, VITB6 #### [place] [address] #### FOL, B12, IFES, SPE #### [place] [id number] CUSon 02-28-2022 Copper (s) 107 UG/DL Normal 70-140 [facility] ([place] Comment on above: Result Comment: This test was developed and its performance characteristics determined by [facility]'s Rick [facility]une[facility] [place] ([facility] It has not been cleared or approved by the FDA. [facility] is regulated under CLIA as qualified to perform high-complexity testing. This test is used for clinical purposes. It should not be regarded as investigational or for research. Performed By: [facility] [address] [place] [address] Hand Collator: Hung Arevalo III, M.D. CLIA#: [id number] Performed By: #### A 1C, TSH, FT4, ENA1, COPPER, MMA, VITB6 #### [place] [address] #### FOL, B12, IFES, SPE #### [place] [id number] ENA1on 02-28-2022 Centromere <0.2 Normal <1.0 [facility] Comment on above: Result Comment: Anti -centromere antibody is used as in aid in diagnosis of systemic sclerosis. Clinical correlation is required. Test Methodology: Multiplex flow immunoassay. Performed By: [place] [address] Hand Collator: Hung Arevalo III, M.D. CLIA#: [id number] Performed By: #### A 1C, TSH, FT4, ENA1, COPPER, MMA, VITB6 #### [place] [address] #### FOL, B12, IFES, SPE #### [address] [address] Centromere Ab Qualitative Negative Normal Negative [facility] ([place]) Comment on above: Result Comment: Perf ormed By: [place] [address] Hand Collator: Hung Arevalo III, M.D. CLIA#: [id number] Performed By: #### A 1C, TSH, FT4, ENA1, COPPER, MMA, VITB6 #### [place] [address] #### FOL, B12, IFES, SPE #### [address] [address] Chromatin Ab Qualitative Negative Normal Negative [facility] ([place]) Comment on above: Result Comment: Perf ormed By: [place] [address] Hand Collator: Hung Aervalo III, M.D. CLIA#: [id number] Performed By: #### A 1C, TSH, FT4, ENA1, COPPER, MMA, VITB6 #### [address] [address] #### FOL, B12, IFES, SPE #### [address] [address] Chromatin Antibody <0.2 Normal <1.0 [facility] ([place]) Comment on above: Result Comment: Test Methodology: Multiplex flow immunoassay. Anti-chromatin antibody is used as an aid in diagnosis of systemic lupus erythematosus. Clinical correlation is required. Test Methodology: Multiplex flow immunoassay. Performed By: [place] [address] Hand Collator: Hung Arevalo III, M.D. CLIA#: [id number] Performed By: #### A 1C, TSH, FT4, ENA1, COPPER, MMA, VITB6 #### [place] [address] #### FOL, B12, IFES, SPE #### [address] [address] HAILE 1 Antibody <0.2 Normal <1.0 [facility] ([place]) Comment on above: Result Comment: Perf ormed By: [place] [address] Hand Collator: Hung Arevalo III, M.D. CLIA#: [id number] Performed By: #### A 1C, TSH, FT4, ENA1, COPPER, MMA, VITB6 #### [place] [address] #### FOL, B12, IFES, SPE #### [address] [address] HAILE 1 Antibody Qual Negative Normal Negative [facility] ([place]) Comment on above: Result Comment: Anti -HAILE-1 antibody is used as an aid in diagnosis of polymyositis and dermatomyositis especially with pulmonary involvement. A negative result cannot rule out polymyositis or dermatomyositis. Clinical correlation is required. Test Methodology: Multiplex flow immunoassay. Performed By: [place] [address] Hand Collator: Hung Arevalo III, M.D. CLIA#: [id number] Performed By: #### A 1C, TSH, FT4, ENA1, COPPER, MMA, VITB6 #### [place] [address] #### FOL, B12, IFES, SPE #### [address] [address] Ribosomal NURSING AGENCY MANAGER <0.2 Normal <1.0 [facility] ([place] Comment on above: Result Comment: Perf ormed By: [place] [address] Hand Collator: Hung Arevalo III, M.D. CLIA#: [id number] Performed By: #### A 1C, TSH, FT4, ENA1, COPPER, MMA, VITB6 #### [address] [address] #### FOL, B12, IFES, SPE #### [address] [address] Ribosomal NURSING AGENCY MANAGER Qualitative Negative Normal Negative [facility] ([place] Comment on above: Result Comment: Anti -Ribosomal RNA (Ribosomal P) antibody is used as an aid in diagnosis of systemic autoimmune diseases especially systemic lupus erythematosus and mixed connective tissue disease. Cross-reactivity with Anti-gonzales antibody is not uncommon. Clinical correlation is required. Test Methodology: Multiplex flow immunoassay. Performed By: [place] [address] Hand Collator: Hung Arevalo III, M.D. CLIA#: [id number] Performed By: #### A 1C, TSH, FT4, ENA1, COPPER, MMA, VITB6 #### [place] [address] #### FOL, B12, IFES, SPE #### [address] [address] NURSING AGENCY MANAGER Antibody 0.3 AI Normal <1.0 [facility] ([place] Comment on above: Result Comment: Anti -NURSING AGENCY MANAGER antibody is used as an aid in diagnosis of systemic autoimmune diseases especially systemic lupus erythematosus and mixed connective tissue disease. Cross-reactivity with Anti-gonzales antibody is not uncommon. Clinical correlation is required. Test Methodology: Multiplex flow immunoassay. Performed By: [place] [address] Hand Collator: Hung Arevalo III, M.D. CLIA#: [id number] Performed By: #### A 1C, TSH, FT4, ENA1, COPPER, MMA, VITB6 #### [address] [address] #### FOL, B12, IFES, SPE #### [address] [address] NURSING AGENCY MANAGER Antibody Qualitative Negative Normal Negative [facility] ([place] Comment on above: Result Comment: Perf ormed By: [place] [address] Hand Collator: Hung Arevalo III, M.D. CLIA#: [id number] Performed By: #### A 1C, TSH, FT4, ENA1, COPPER, MMA, VITB6 #### [place] [address] #### FOL, B12, IFES, SPE #### [address] [address] Scleroderma Ab, IgG Qualitative Negative Normal Negative [facility] ([place] Comment on above: Result Comment: Perf ormed By: [place] [address] Hand Collator: Hung Arevalo III, M.D. CLIA#: [id number] Performed By: #### A 1C, TSH, FT4, ENA1, COPPER, MMA, VITB6 #### [place] [address] #### FOL, B12, IFES, SPE #### [place] [id number] Scleroderma IgG Ab <0.2 Normal <1.0 [facility] ([place]) Comment on above: Result Comment: Scl- 70/Scleroderma antibody test is used as an aid in diagnosis of systemic sclerosis especially the diffuse cutaneous form. A negative result cannot rule out systemic sclerosis. The final interpretation should consider clinical picture and other test results such as anti-centromere antibody. Test Methodology: Multiplex flow immunoassay. Performed By: [place] [address] Hand Collator: Hung Arevalo III, M.D. CLIA#: [id number] Performed By: #### A 1C, TSH, FT4, ENA1, COPPER, MMA, VITB6 #### [place] [address] #### FOL, B12, IFES, SPE #### [address] [address] Sm Antibody <0.2 Normal <1.0 [facility] ([place] Comment on above: Result Comment: Perf ormed By: [place] [address] Hand Collator: Hung Arevalo III, M.D. CLIA#: [id number] Performed By: #### A 1C, TSH, FT4, ENA1, COPPER, MMA, VITB6 #### [place] [address] #### FOL, B12, IFES, SPE #### [address] [address] Sm Antibody Qual Negative Normal Negative [facility] ([place] Comment on above: Result Comment: Anti -Sm (Gonzales) antibody is used as an aid in diagnosis of systemic lupus erythematosus and its presence is associated with renal disease. A negative result cannot rule out systemic lupus erythematosus. Clinical correlation is required. Test Methodology: Multiplex flow immunoassay. Performed By: [facility] [employer] [address] [place] [address] Hand Collator: Hung Arevalo III, M.D. CLIA#: [id number] Performed By: #### A 1C, TSH, FT4, ENA1, COPPER, MMA, VITB6 #### [place] [address] #### FOL, B12, IFES, SPE #### [address] [address] SS-A Antibody <0.2 Normal <1.0 [facility] ([place] Comment on above: Result Comment: Test Methodology: Multiplex flow immunoassay. Anti-SSA (anti-Ro) antibody is used as an aid in diagnosis of a variety of systemic autoimmune diseases, Sjogren's syndrome among others. Clinical correlation is required. Test Methodology: Multiplex flow immunoassay. Performed By: [facility] [employer] [address] [place] [address] Hand Collator: Hung Arevalo III, M.D. CLIA#: [id number] Performed By: #### A 1C, TSH, FT4, ENA1, COPPER, MMA, VITB6 #### [place] [address] #### FOL, B12, IFES, SPE #### [address] [address] SS-B Antibody <0.2 Normal <1.0 [facility] ([place] Comment on above: Result Comment: Anti -SSB (anti-La) antibody is used as an aid in diagnosis of a variety of systemic autoimmune diseases, especially for Sjogren's syndrome and systemic lupus erythematosus. Clinical correlation is required. Test Methodology: Multiplex flow immunoassay. Performed By: [place] [address] Hand Collator: Hung Arevalo III, M.D. CLIA#: [id number] Performed By: #### A 1C, TSH, FT4, ENA1, COPPER, MMA, VITB6 #### [place] [address] #### FOL, B12, IFES, SPE #### [address] [address] SSA Antibody Qualitative Negative Normal Negative [facility] ([place] Comment on above: Result Comment: Perf ormed By: [place] [address] Hand Collator: Hung Arevalo III, M.D. CLIA#: [id number] Performed By: #### A 1C, TSH, FT4, ENA1, COPPER, MMA, VITB6 #### [place] [address] #### FOL, B12, IFES, SPE #### [address] [address] SSB Antibody Qualitative Negative Normal Negative [facility] ([place] Comment on above: Result Comment: Perf ormed By: [place] [address] Hand Collator: Hung Arevalo III, M.D. CLIA#: [id number] Performed By: #### A 1C, TSH, FT4, ENA1, COPPER, MMA, VITB6 #### [place] [address] #### FOL, B12, IFES, SPE #### [place] [address] A1Con 02-27-2022 HbA1c (Bld) [Mass fraction] 5.8 % Normal 4.3-6.4 [facility] ([place] Comment on above: Performed By: #### A 1C, TSH, FT4, ENA1, COPPER, MMA, VITB6 #### [place] [address] #### FOL, B12, IFES, SPE #### [place] [address] B12on 02-27-2022 Cobalamin (Vitamin B12) [Mass/Vol] 536 pg/mL Normal 211-911 [facility] ([place]) Comment on above: Performed By: #### A 1C, TSH, FT4, ENA1, COPPER, MMA, VITB6 #### [place] [address] #### FOL, B12, IFES, SPE #### [place] [address] FOLon 02-27-2022 Folate 11.66 ng/mL Normal 5.38-24.00 [facility] ([place] Comment on above: Performed By: #### A 1C, TSH, FT4, ENA1, COPPER, MMA, VITB6 #### [place] [address] #### FOL, B12, IFES, SPE #### [place] [address] FT4on 02-27-2022 Free T4 [Mass/Vol] 0.88 ng/dL Normal 0.76-1.46 [facility] ([place]) Comment on above: Performed By: #### A 1C, TSH, FT4, ENA1, COPPER, MMA, VITB6 #### [place] [address] #### FOL, B12, IFES, SPE #### [place] [address] SPEon 02-27-2022 Total Protein 6.9 G/dL Normal 5.7-8.2 [facility] ([place] Comment on above: Result Comment: No te - New Reference Range in effect 20 Performed By: #### A 1C, TSH, FT4, ENA1, COPPER, MMA, VITB6 #### [address] [address] #### FOL, B12, IFES, SPE #### [address] [address] TSHon 02-27-2022 TSH Qn 2.20 m[IU]/L Normal 0.36-3.74 [facility] ([place] Comment on above: Performed By: #### A 1C, TSH, FT4, ENA1, COPPER, MMA, VITB6 #### [address] [address] #### FOL, B12, IFES, SPE #### [address] [address] Absolute lymphocyte counton 02-07-2022 Lymphocytes Auto (Unsp spec) [#/Vol] 1.49 10*3/uL 0.83-4.51 [facility] Work Phone: Basophil percentageon 2021 Basophils/100 WBC (Bld) 0.7 % 0-1 [facility] Work Phone: Chloride [Moles/Vol] 108 mmol/L 98-107 [facility] Work Phone: Eosinophils/100 WBC (Bld) 2.7 % 0-5 [facility] Work Phone: Glucose [Mass/Vol] 125 mg/dL 74-106 [facility] Work Phone: Comment on above: Fasting Glucose resu lt from 100 to 125 mg/dL suggests IMPAIRED HOMEOSTASIS per A.D.A. criteria. Neutrophils (Bld) [#/Vol] 3.5 10*3/uL 2.0-7.7 [facility] Work Phone: Neutrophils/100 WBC (Bld) 62.5 % 47-70 [facility] Work Phone: Potassium [Moles/Vol] 4.0 mmol/L 3.5-5.1 [facility] Work Phone: Comment on above: Slight Hemolysis, Re sult may be falsely increased. Sodium [Moles/Vol] 139 mmol/L 136-145 [facility] Work Phone: WBC (Bld) [#/Vol] 5.6 10*3/uL 4.4-11.0 [facility] Work Phone: Blood erythrocytes count (nu mber/volume)on 02-07-2022 RBC (Bld) [#/Vol] 5.16 10*6/uL 4.6-6.2 [facility] Work Phone: [phone] Blood hemoglobin measurement (mass/volume)on 02-07-2022 Hemoglobin (Bld) [Mass/Vol] 16.1 g/dL 13.0-16.5 [facility] Work Phone: Blood lymphocytes/100 leukoc yteson 02-07-2022 Lymphocytes/100 WBC (Bld) 26.7 % 19-41 [facility] Work Phone: Blood monocytes/100 leukocyt eson 02-07-2022 Monocytes/100 WBC (Bld) 7.2 % 0-10 [facility] Work Phone: Blood platelet mean volumeon 02-07-2022 Platelet mean volume (Bld) [Entitic vol] 9.7 fL 6.2-12.0 [facility] Work Phone: Determination of erythrocyte mean corpuscular volume (MCV)on 02-07-2022 MCV (RBC) [Entitic vol] 89.5 fL 80-94 [facility] Work Phone: Hematocrit Auto (Bld) [Volum e fraction]on 02-07-2022 Hematocrit (Bld) [Volume fraction] 46.2 % 40-54 [facility] Work Phone: Laboratory - Chemistry and C hemistry - challengeon 02-07-2022 CO2 [Moles/Vol] 24.0 mmol/L 21.0-32.0 [facility] Work Phone: [phone] Urea nitrogen/Creatinine [Mass ratio] 10.5 mg/mg 10-20 [facility] Work Phone: [phone] Laboratory - Hematology and Cell countson 02-07-2022 Erythrocyte distribution width (RBC) [Entitic vol] 41.1 fL 35.1-43.9 [facility] Work Phone: [phone] Erythrocyte distribution width (RBC) [Ratio] 12.5 % 11.6-14.6 [facility] Work Phone: [phone] Immature granulocytes/100 WBC (Bld) 0.200 % 0.0-0.9 [facility] Work Phone: [phone] Comment on above: IG% - Immature Granu locytes (promyelocytes, myelocytes and metamyelocytes) > 1% indicates that a LEFT SHIFT is Present. MCH (RBC) [Entitic mass] 31.2 pg 27.0-32.0 [facility] Work Phone: [phone] Nucleated RBC/100 WBC (Bld) [Ratio] 0 % 0-5 [facility] Work Phone: [phone] MCHC Auto (RBC) [Mass/Vol]on 02-07-2022 MCHC (RBC) [Mass/Vol] 34.8 g/dL 32-36 [facility] Work Phone: [phone] Panel Informationon 02-07 Estimated GFR (MDRD) Amer 75 mL/min >60 [facility] Work Phone: [phone] Comment on above: GFR Calc Estimated GFR (MDRD) Non-Af Amer 62 mL/min >60 [facility] Work Phone: [phone] Comment on above: Non- GFR Calc Platelets bldon 02-07-2022 Platelets (Bld) [#/Vol] 225 10*3/uL 150-450 [facility] Work Phone: [phone] Serum or plasma calcium raul urement (mass/volume)on 02-07-2022 Calcium [Mass/Vol] 9.6 mg/dL 8.5-10.1 [facility] Work Phone: Serum or plasma creatinine m easurement (mass/volume)on 02-07-2022 Creatinine [Mass/Vol] 1.24 mg/dL 0.70-1.30 [facility] Work Phone: Comment on above: The validity of the calculated GFR & GFRAA in patients over 70 years has not been determined. Clinical correlation is essential. Serum or plasma urea nitroge n measurement (mass/volume)on 02-07-2022 Urea nitrogen [Mass/Vol] 13 mg/dL 7-18 [facility] Work Phone: Thin prep Papanicolaou smear with manual screeningon 02-07-2022 Thin prep Papanicolaou smear with manual screening 7 5-15 [facility] Work Phone: Basophil percentageon 2021 Chloride [Moles/Vol] 111 mmol/L 98-107 [facility] Work Phone: [phone] Cholesterol [Mass/Vol] 150 mg/dL <200 [facility] Work Phone: Comment on above: <200 mg/dL Desirable 200-240 mg/dL Borderline >240 mg/dL High Risk Glucose [Mass/Vol] 96 mg/dL 74-106 [facility] Work Phone: Potassium [Moles/Vol] 4.0 mmol/L 3.5-5.1 [facility] Work Phone: [phone] Sodium [Moles/Vol] 141 mmol/L 136-145 [facility] Work Phone: [phone] Triglyceride [Mass/Vol] 140 mg/dL [facility] Work Phone: [phone] Comment on above: The drugs N-Acetylcy steine and Metamizole may falsely depress this assay.Serum Triglycerides Reference Interval Normal <150 mg/dL Borderline high 150 - 199 mg/dL High 200 - 499 mg/dL Very High > or = 500 mg/dL Laboratory - Chemistry and C hemistry - challengeon 01-24-2022 CO2 [Moles/Vol] 24.0 mmol/L 21.0-32.0 [facility] Work Phone: Urea nitrogen/Creatinine [Mass ratio] 10.3 mg/mg 10-20 [facility] Work Phone: No Panel Informationon 01-24 Estimated GFR (MDRD) Amer 74 mL/min >60 [facility] Work Phone: Comment on above: GFR Calc Estimated GFR (MDRD) Non-Af Amer 61 mL/min >60 [facility] Work Phone: Comment on above: Non- GFR Calc Serum or plasma calcium raul urement (mass/volume)on 01-24-2022 Calcium [Mass/Vol] 10.0 mg/dL 8.5-10.1 [facility] Work Phone: Serum or plasma cholesterol in HDL measurement (mass/volume)on 01-24-2022 Cholesterol in HDL [Mass/Vol] 30 mg/dL [facility] Work Phone: Comment on above: The drugs N-Acetylcy steine and Metamizole may falsely depress this assay. Reference Range HDL <40 mg/dL Low HDL Cholesterol HDL >or= 60 mg/dL High HDL Cholesterol Serum or plasma cholesterol in VLDL measurement (mass/volume)on 01-24-2022 Cholesterol in VLDL [Mass/Vol] 28 mg/dL 5-40 [facility] Work Phone: Serum or plasma creatinine m easurement (mass/volume)on 01-24-2022 Creatinine [Mass/Vol] 1.26 mg/dL 0.70-1.30 [facility] Work Phone: Comment on above: The validity of the calculated GFR & GFRAA in patients over 70 years has not been determined. Clinical correlation is essential. Serum or plasma low density lipoprotein (LDL) cholesterol measurement (mass/volume)on 01-24-2022 Cholesterol in LDL [Mass/Vol] 92 mg/dL 0-130 [facility] Work Phone: Serum or plasma urea nitroge n measurement (mass/volume)on 01-24-2022 Urea nitrogen [Mass/Vol] 13 mg/dL 7-18 [facility] Work Phone: Thin prep Papanicolaou smear with manual screeningon 01-24-2022 Thin prep Papanicolaou smear with manual screening 6 5-15 [facility] Work Phone: Absolute lymphocyte counton 01-15-2022 Lymphocytes Auto (Unsp spec) [#/Vol] 1.95 10*3/uL 0.83-4.51 [facility] Work Phone: Basophil percentageon 2021 Basophils/100 WBC (Bld) 0.6 % 0-1 [facility] Work Phone: Chloride [Moles/Vol] 110 mmol/L 98-107 [facility] Work Phone: Eosinophils/100 WBC (Bld) 3.4 % 0-5 [facility] Work Phone: Glucose [Mass/Vol] 106 mg/dL 74-106 [facility] Work Phone: Comment on above: Fasting Glucose resu lt from 100 to 125 mg/dL suggests IMPAIRED HOMEOSTASIS per A.D.A. criteria. Neutrophils (Bld) [#/Vol] 5.1 10*3/uL 2.0-7.7 [facility] Work Phone: Neutrophils/100 WBC (Bld) 62.1 % 47-70 [facility] Work Phone: Potassium [Moles/Vol] 3.7 mmol/L 3.5-5.1 [facility] Work Phone: Sodium [Moles/Vol] 139 mmol/L 136-145 [facility] Work Phone: WBC (Bld) [#/Vol] 8.1 10*3/uL 4.4-11.0 [facility] Work Phone: Basophil percentage 5-10 SEEN /hpf [facility] Work Phone: Bilirubin Test strip Ql (U)o n 02-14-2022 Bilirubin Ql (U) Negative Negative [facility] Work Phone: Blood erythrocytes count (nu mber/volume)on 01-15-2022 RBC (Bld) [#/Vol] 4.96 10*6/uL 4.6-6.2 [facility] Work Phone: Blood hemoglobin measurement (mass/volume)on 01-15-2022 Hemoglobin (Bld) [Mass/Vol] 14.8 g/dL 13.0-16.5 [facility] Work Phone: Blood lymphocytes/100 leukoc yteson 01-15-2022 Lymphocytes/100 WBC (Bld) 24.0 % 19-41 [facility] Work Phone: Blood monocytes/100 leukocyt eson 01-15-2022 Monocytes/100 WBC (Bld) 9.0 % 0-10 [facility] Work Phone: Blood platelet mean volumeon 01-15-2022 Platelet mean volume (Bld) [Entitic vol] 9.9 fL 6.2-12.0 [facility] Work Phone: Determination of erythrocyte mean corpuscular volume (MCV)on 01-15-2022 MCV (RBC) [Entitic vol] 89.1 fL 80-94 [facility] Work Phone: Hematocrit Auto (Bld) [Volum e fraction]on 01-15-2022 Hematocrit (Bld) [Volume fraction] 44.2 % 40-54 [facility] Work Phone: Ketones Test strip Ql (U)on 01-15-2022 Ketones Ql (U) 5 mg/dl Negative [facility] Work Phone: Laboratory - Chemistry and C hemistry - challengeon 01-15-2022 CO2 [Moles/Vol] 24.0 mmol/L 21.0-32.0 [facility] Work Phone: Urea nitrogen/Creatinine [Mass ratio] 9.1 mg/mg 10-20 [facility] Work Phone: [phone] Laboratory - Hematology and Cell countson 01-15-2022 Erythrocyte distribution width (RBC) [Entitic vol] 42.2 fL 35.1-43.9 [facility] Work Phone: [phone] Erythrocyte distribution width (RBC) [Ratio] 12.9 % 11.6-14.6 [facility] Work Phone: [phone] Immature granulocytes/100 WBC (Bld) 0.900 % 0.0-0.9 [facility] Work Phone: [phone] Comment on above: IG% - Immature Granu locytes (promyelocytes, myelocytes and metamyelocytes) > 1% indicates that a LEFT SHIFT is Present. MCH (RBC) [Entitic mass] 29.8 pg 27.0-32.0 [facility] Work Phone: [phone] Nucleated RBC/100 WBC (Bld) [Ratio] 0 % 0-5 [facility] Work Phone: [phone] MCHC Auto (RBC) [Mass/Vol]on 01-15-2022 MCHC (RBC) [Mass/Vol] 33.5 g/dL 32-36 [facility] Work Phone: Mucus LM Ql (Urine sed)on Mucus Ql (Urine sed) 0 SEEN /hpf [facility] Work Phone: [phone] Nitrite Test strip Ql (U)on 01-15-2022 Nitrite Ql (U) Negative Negative [facility] Work Phone: [phone] Panel Informationon 01-15 Estimated Creatinine Clearance Calc 41.61 ml/min [facility] Work Phone: [phone] Estimated GFR (MDRD) Amer 47 mL/min >60 [facility] Work Phone: [phone] Comment on above: GFR Calc Estimated GFR (MDRD) Non-Af Amer 39 mL/min >60 [facility] Work Phone: [phone] Comment on above: Non- GFR Calc Platelets bldon 01-15-2022 Platelets (Bld) [#/Vol] 230 10*3/uL 150-450 [facility] Work Phone: Protein Test strip Ql (U)on 01-15-2022 Protein Ql (U) Negative Negative [facility] Work Phone: Serum or plasma calcium raul urement (mass/volume)on 01-15-2022 Calcium [Mass/Vol] 9.5 mg/dL 8.5-10.[address] [facility] Work Phone: Serum or plasma creatinine m easurement (mass/volume)on 01-15-2022 Creatinine [Mass/Vol] 1.86 mg/dL 0.70-1.30 [facility] Work Phone: Comment on above: The validity of the calculated GFR & GFRAA in patients over 70 years has not been determined. Clinical correlation is essential. Serum or plasma urea nitroge n measurement (mass/volume)on 01-15-2022 Urea nitrogen [Mass/Vol] 17 mg/dL 7-18 [facility] Work Phone: Squamous epithelial cells de tection in urine sediment by light microscopyon 01-15-2022 Epithelial cells.squamous LM Ql (Urine sed) 0 SEEN /hpf [facility] Work Phone: Thin prep Papanicolaou smear with manual screeningon 01-15-2022 Thin prep Papanicolaou smear with manual screening 5 5-15 [facility] Work Phone: Urine blood detectionon 01-02 RBC Ql (U) Negative Negative [facility] Work Phone: RBC Ql (U) 0 SEEN /hpf [facility] Work Phone: Urine clarityon 01-15-2022 Clarity (U) Clear Clear [facility] Work Phone: Urine color determinationon 01-15-2022 Color (U) Yellow Yellow [facility] Work Phone: Urine glucose detectionon Glucose Ql (U) Normal mg/dl Normal [facility] Work Phone: Urine leukocyte esterase det ection by dipstickon 01-15-2022 Leukocyte esterase Test strip Ql (U) 25 /ul Negative [facility] Work Phone: Urine pHon 01-15-2022 pH (U) 6.0 [pH] [facility] Work Phone: Urine sediment bacteria coun t by microscopy (number/high power field)on 01-15-2022 Bacteria LM.HPF (Urine sed) [#/Area] 0 /[HPF] None Seen [facility] Work Phone: Urine specific gravity measu rementon 01-15-2022 Specific gravity (U) [Rel density] 1.015 [facility] Work Phone: Urobilinogen Auto test strip Ql (U)on 01-15-2022 Urobilinogen Ql (U) Normal mg/dl Normal [facility] Work Phone: COVID-19Ordered By: Hamilton marc on 05-31-2021 SARS-CoV-2 (COVID-19) RNA TAYLA+probe Ql (Unsp spec) Not detected Not Detected [facility] Work [facility]: Comment on above: Not Detected. Expected Result: Not Detected _ Real-time, RT-PCR performed on the [employer] System by the [facility] Service. Negative results do not preclude SARS-CoV-2 infection and should not be used as the sole basis for treatment or other patient management decisions. This assay was developed by [employer] and distributed under an Emergency Use Authorization (EUA) granted by the FDA for the qualitative detection of SARS-CoV-2 nucleic acid. Test Performed by [employer], [address] [place] [id number] [facility] Work Phone: [id number] 05-31-2021 SARS-CoV-2 (COVID-19) RNA TAYLA+probe Ql (Unsp spec) SARS-CoV-2 --> Status: F Not Detected. Expected Result: Not Detected _ Real-time, RT-PCR performed on the [employer] System by the [facility] Service. Negative results do not preclude SARS-CoV-2 infection and should not be used as the sole basis for treatment or other patient management decisions. This assay was developed by [employer] and distributed under an Emergency Use Authorization (EUA) granted by the FDA for the qualitative detection of SARS-CoV-2 nucleic acid. Expected Result: Not Detected _ Real-time, RT-PCR performed on the [employer] System by the [facility] Microbiology Service. Negative results do not preclude SARS-CoV-2 infection and should not be used as the sole basis for treatment or other patient management decisions. This assay was developed by [employer] and distributed under an Emergency Use Authorization (EUA) granted by the FDA for the qualitative detection of SARS-CoV-2 nucleic acid. Normal [facility] Comment on above: Performed By: #### C OVID #### [facility] [address] [place] [id number] VL DUP LOWER EXTREMITY VENOU S BILATERALOrdered By: Hamilton Mckinnon on 05-29-2021 [facility] -------- Lower Extremity Venous Duplex Report Patient Luis Manuel, : 1955 Study 05/29/2021 Name: Albin Zazueta (66yrs) Date: Patient [id number] Age: 66 Account: [id number] ID: Gender: M Loc: 6111 BP: Ordering Physician: Hamilton Mckinnon Boiler Tester: Silva Ann RVT Interpreting Physician: Paco Tijerina M.D. -------- Location: [facility] -------- Indications: Lower extremity swelling and history [...] supine position. Images were obtained using a [employer] E9 vascular ultrasound machine. -------- Venous flow [...] + -------+ --------+ (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 [facility] Work Phone: Mynor, [facility] Incoming Cardiology Results From Baltazar/Stanley - 05/29/2021 4:51 PM EDT [facility] -------- Lower Extremity Venous Duplex Report Patient Luis Manuel, : 1955 Study 05/29/2021 Name: Albin Zazueta (yr) Date: Patient [id number] Age: 66 Account: [id number] ID: Gender: M Loc: 6111 BP: Ordering Physician: Hamilton Mckinnon Boiler Tester: Silva Ann Marry Interpreting Physician: Paco Tijerina M.D. -------- Location: [facility] -------- Indications: Lower extremity swelling and history [...] supine position. Images were obtained using a [employer] E9 vascular ultrasound machine. -------- Venous flow [...] signed by Paco Tijerina M.D. 05/29/2021 16:51 [facility] Work Phone: [employer] Phone: VL Venous Duplex US Lower Ex t Bilateralon 05-29-2021 VL Venous Duplex US Lower Ext Bilateral Patient Name: ALBIN ISSA Ultrasound ACCESSION EXAM DATE/TIME PROCEDURE ORDERING PROVIDER [id number] 05/29/2021 15:17 EDT VL Venous Duplex US [id number] -HAMILTON MCKINNON Lower Ext Bilateral CPT code 74977 Reason For Exam (VL Venous Duplex US Lower Ext Bilateral) edema Report [facility] -------- Lower Extremity Venous Duplex Report Patient Luis Manuel, : 1955 Study 05/29/2021 Name: Albin Zazueta () Date: Patient Age: 66 Account: [id number] ID: Gender: M Loc: 6111 BP: Ordering Physician: Hamilton Mckinnon Boiler Tester: Silva Ann RVT Interpreting Physician: Paco Tijerina M.D. -------- Location: [facility] -------- Indications: Lower extremity swelling and history [...] Images were obtained Ultrasound Report using a [employer] E9 vascular ultrasound machine. -------- Venous flow [...] -------+ --------+ (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 Normal [facility] Basic Metabolic Panelon 06-2 Anion gap [Moles/Vol] 5 mmol/L Normal 3-13 [facility] Comment on above: Performed By: #### C OVID #### [facility] [address] [place] [address] Calcium [Mass/Vol] 9.4 mg/dL Normal 8.4-10.4 [facility] Comment on above: Performed By: #### C OVID #### [facility] [employer] [facility] [address] [place] [address] CO2 [Moles/Vol] 23 mmol/L Normal 22-30 [facility] Comment on above: Performed By: #### C OVID #### [facility] [employer] [facility] [address], [place] Glucose [Mass/Vol] 122 mg/dL High 70-100 [facility] Comment on above: Performed By: #### C OVID #### [facility] [address] [place] [address] Urea nitrogen [Mass/Vol] 15 mg/dL Normal 7-20 [facility] Comment on above: Performed By: #### C OVID #### [facility] [address] [place] [address] Creatinine [Mass/Vol] 1.13 mg/dL Normal 0.52-1.25 [facility] Comment on above: Performed By: #### C OVID #### [place] [address] [place] [address] GFR/1.73 sq M.predicted among blacks MDRD (S/P/Bld) [Vol rate/Area] 78.0 mL/min/{1.73_m2} Normal >60 [facility] Comment on above: Performed By: #### C OVID #### [place] [address] [place] [address] GFR/1.73 sq M.predicted among non-blacks MDRD (S/P/Bld) [Vol rate/Area] 67.3 mL/min/{1.73_m2} Normal >60 [facility] Comment on above: Result Comment: [...] secretion. Performed By: #### C OVID #### [place] [address] [place], [place] Potassium [Moles/Vol] 4.5 mmol/L Normal 3.5-5.1 [facility] Comment on above: Performed By: #### C OVID #### [facility] [address], [place] Chloride [Moles/Vol] 109 mmol/L High 98-107 [facility] Comment on above: Performed By: #### C OVID #### [facility] [address], [place] Sodium [Moles/Vol] 137 mmol/L Normal 135-145 [facility] Comment on above: Performed By: #### C OVID #### [facility] [address], [place] Basic Metabolic PanelOrdered By: Sd Moreno on 05-25-2021 Anion gap [Moles/Vol] 5 mmol/L 3 - 13 mmol/L [facility] Work Phone: Calcium [Mass/Vol] 9.4 mg/dL 8.4 - 10. 4 mg/dL [facility] Work Phone: Chloride [Moles/Vol] 109 mmol/L High 98 - 10 7 mmol/L [facility] Work Phone: CO2 [Moles/Vol] 23 mmol/L 22 - 30 mmol/L [facility] Work Phone: Creatinine [Mass/Vol] 1.13 mg/dL 0.52 - 1.25 mg/dL [facility] Work Phone: EGFR IF NonAfrican Monegasque 67.3 mL/min >60 [facility] Work Phone: Comment on above: KDIGO guidelines [...] MDRD (S/P/Bld) [Vol rate/Area] 78.0 mL/min/{1.73_m2} >60 [facility] Work Phone: Glucose [Mass/Vol] 122 mg/dL High [...] 40.0 - 52.0 % [facility] Work Phone: [phone] Hemoglobin.gastrointest inal spec 1 Ql (Stl) 11.9 g/dL Low 13.0 - 18.0 g/dL [employer] Work Phone: Interpretation and review of laboratory results Abnormal [employer] Work Phone: Lymphocytes (Bld) [#/Vol] 0.7 10*3/uL Low 1.0 - 4.3 10*3/uL [employer] Work Phone: Lymphocytes/100 WBC (Bld) 6.6 % Low 20.0 - 40.0 % [employer] Work Phone: MCH (RBC) [Entitic mass] 30.6 pg 26.0 - 34.0 pg [employer] Work Phone: MCHC (RBC) [Mass/Vol] 34.7 % 32.0 - 36.0 % [employer] Phone: MCV (RBC) [Entitic vol] 88.4 fL 80.0 - 98.0 fL [employer] Work Phone: Monocytes (Bld) [#/Vol] 0.5 10*3/uL 0.0 - 0.8 10*3/uL [employer] Phone: Monocytes/100 WBC (Bld) 5.1 % 2.0 - 10.0 % [employer] Phone: Platelet distribution width (Bld) [Ratio] 13.7 % 11.5 - 14.5 % [employer] Phone: Platelet mean volume (Bld) [Entitic vol] 8.0 fL 7.4 - 10.4 fL [employer] Work Phone: Platelets (Bld) [#/Vol] 171 10*3/uL 140 - 440 10*3/uL [employer] Work Phone: RBC (Bld) [#/Vol] 3.90 10*6/uL Low 4.40 - 5.9 0 10*6/uL [employer] Work Phone: WBC (Bld) [#/Vol] 10.4 10*3/uL 3.6 - 10.7 10*3/uL [facility] Work Phone: [phone] Test Performed by [facility], [address] [place] [address] [facility] Work Phone: [phone] [facility] Work Phone: Hemogram w/ Autodiffon 05-25 Abs Baso Cnt 0.0 10*3/uL Normal 0.0-0.2 [facility] Comment on above: Performed By: #### C OVID #### [facility] [address] [place] [address] Abs Neutrophile Cnt 9.2 10*3/uL High 1.8-7.0 [facility] Comment on above: Performed By: #### C OVID #### [address] [address] Basophils/100 WBC (Bld) 0.1 % Normal 0.0-2.0 S [facility] Comment on above: Performed By: #### C OVID #### [facility] [address] [place] [address] Eosinophils (Bld) [#/Vol] 0.0 10*3/uL Normal 0.0-0.5 [facility] Comment on above: Performed By: #### C OVID #### [address] [address] Eosinophils/100 WBC (Bld) 0.1 % Low 1.0-6.0 [facility] Comment on above: Performed By: #### C OVID #### [address] [address] Erythrocyte distribution width (RBC) [Ratio] 13.7 % Normal 11.5-14.5 [facility] Comment on above: Performed By: #### C OVID #### [facility] [employer] [address] [address] Granulocytes/100 WBC (Bld) 88.1 % High 40.0-80.0 [facility] Comment on above: Performed By: #### C OVID #### [facility] [address] [place] [address] Hematocrit (Bld) [Volume fraction] 34.4 % Low 40.0-52.0 [facility] Comment on above: Performed By: #### C OVID #### [facility] [address] [place], [place] Hemoglobin (Bld) [Mass/Vol] 11.9 g/dL Low 13.0-18.0 [facility] Comment on above: Performed By: #### C OVID #### [facility] [address] [place], [place] Lymphocytes (Bld) [#/Vol] 0.7 10*3/uL Low 1.0-4.3 [facility] Comment on above: Performed By: #### C OVID #### [place] [address] [place], [place] Lymphocytes/100 WBC (Bld) 6.6 % Low 20.0-40.0 [facility] Comment on above: Performed By: #### C OVID #### [place] [address] [place], [place] MCH (RBC) [Entitic mass] 30.6 pg Normal 26.0-34.0 [facility] Comment on above: Performed By: #### C OVID #### [place] [address] [place], [place] MCHC 34.7 % Normal 32.0-36.0 [facility] Comment on above: Performed By: #### C OVID #### [place] [address] [place], [place] MCV (RBC) [Entitic vol] 88.4 fL Normal 80.0-98.0 [facility] Comment on above: Performed By: #### C OVID #### [place] [address] [place], [place] Monocytes (Bld) [#/Vol] 0.5 10*3/uL Normal 0.0-0.8 [facility] Comment on above: Performed By: #### C OVID #### [address] [place] [address] Monocytes/100 WBC (Bld) 5.1 % Normal 2.0-10.0 [facility] Comment on above: Performed By: #### C OVID #### [place] [address] [place] [address] Platelet mean volume (Bld) [Entitic vol] 8.0 fL Normal 7.4-10.4 [facility] Comment on above: Performed By: #### C OVID #### [address] [place] [address] Platelets (Bld) [#/Vol] 171 10*3/uL Normal 140-440 [facility] Comment on above: Performed By: #### C OVID #### [address] [address] [place] [address] RBC (Bld) [#/Vol] 3.90 10*6/uL Low 4.40-5.90 [facility] Comment on above: Performed By: #### C OVID #### [address] [place] [address] WBC (Bld) [#/Vol] 10.4 10*3/uL Normal 3.6-10.7 [facility] Comment on above: Performed By: #### C OVID #### [address] [address] Magnesiumon 05-25-2021 Magnesium [Mass/Vol] 2.0 mg/dL Normal 1.6-2.3 [facility] Comment on above: Performed By: #### C OVID #### [address] [place] [address] MagnesiumOrdered By: Sd trevino on 05-25-2021 Magnesium [Mass/Vol] 2.0 mg/dL 1.6 - 2 .3 mg/dL [facility] Work Phone: No Panel InformationOrdered By: Sd Moreno on 05-25-2021 Interpretation and review of laboratory results Abnormal [facility] Work Phone: Test Performed by [address] [address] [facility] Work Phone: [facility] Work Phone: Phosphoruson 05-25-2021 Phosphate [Mass/Vol] 1.8 mg/dL Low 2.5-4.5 [facility] Comment on above: Performed By: #### C OVID #### [facility] [address] [place] [address] PhosphorusOrdered By: Sd Moreno on 05-25-2021 Phosphate [Mass/Vol] 1.8 mg/dL Low 2.5 - 4 .5 mg/dL [facility] Work Phone: Basic Metabolic Panelon 05-03 Calcium [Mass/Vol] 9.3 mg/dL Normal 8.4-10.4 [facility] Comment on above: Performed By: #### P HOS3, HEMDF, MG3, BMP3 #### [place] [address] [place], [place] Anion gap [Moles/Vol] 5 mmol/L Normal 3-13 [facility] Comment on above: Performed By: #### P HOS3, HEMDF, MG3, BMP3 #### [place] [address] [place], [place] CO2 [Moles/Vol] 23 mmol/L Normal 22-30 [facility] Comment on above: Performed By: #### P HOS3, HEMDF, MG3, BMP3 #### [place] [place] [address] Creatinine [Mass/Vol] 1.02 mg/dL Normal 0.52-1.25 [facility] Comment on above: Performed By: #### P HOS3, HEMDF, MG3, BMP3 #### [address] [place] [place] [address] GFR/1.73 sq M.predicted among blacks MDRD (S/P/Bld) [Vol rate/Area] 88.3 mL/min/{1.73_m2} Normal >60 [facility] Comment on above: Performed By: #### P HOS3, HEMDF, MG3, BMP3 #### [place] [place] [address] GFR/1.73 sq M.predicted among non-blacks MDRD (S/P/Bld) [Vol rate/Area] 76.2 mL/min/{1.73_m2} Normal >60 [facility] Comment on above: Result Comment: KDIG O [...] #### P HOS3, HEMDF, MG3, BMP3 #### [facility] [address] [place] [address] Glucose [Mass/Vol] 100 mg/dL Normal 70-100 [facility] Comment on above: Performed By: #### P HOS3, HEMDF, MG3, BMP3 #### [facility] [address] [place] [address] Urea nitrogen [Mass/Vol] 15 mg/dL Normal 7-20 [facility] Comment on above: Performed By: #### P HOS3, HEMDF, MG3, BMP3 #### [facility] [address] [place] [address] Chloride [Moles/Vol] 109 mmol/L High 98-107 [facility] Comment on above: Performed By: #### P HOS3, HEMDF, MG3, BMP3 #### [facility] [address] [place] [address] Potassium [Moles/Vol] 4.0 mmol/L Normal 3.5-5.1 [facility] Comment on above: Performed By: #### P HOS3, HEMDF, MG3, BMP3 #### [facility] [employer] [facility] [address] [place] [address] Sodium [Moles/Vol] 137 mmol/L Normal 135-145 [facility] [employer] [facility] Comment on above: Performed By: #### P HOS3, HEMDF, MG3, BMP3 #### [facility] [employer] [facility] [address] [place] [address] Basic Metabolic PanelOrdered By: Linda Mcknight on 05-24-2021 Anion gap [Moles/Vol] 5 mmol/L 3 - 13 mmol/L [facility] Work Phone: Calcium [Mass/Vol] 9.3 mg/dL 8.4 - 10. 4 mg/dL [facility] Work Phone: Chloride [Moles/Vol] 109 mmol/L High 98 - 10 7 mmol/L [facility] Work Phone: CO2 [Moles/Vol] 23 mmol/L 22 - 30 mmol/L [facility] Work Phone: Creatinine [Mass/Vol] 1.02 mg/dL 0.52 - 1.25 mg/dL [facility] Work Phone: EGFR IF NonAfrican Monegasque 76.2 mL/min >60 [facility] Work Phone: Comment on above: KDIGO guidelines [...] rate/Area] 88.3 mL/min/{1.73_m2} >60 [facility] Work Phone: [phone] Glucose [Mass/Vol] 100 mg/dL 70 - 100 mg/dL [facility] Work Phone: [phone] Interpretation and review of laboratory results Abnormal [facility] Work Phone: [phone] Potassium [Moles/Vol] 4.0 mmol/L 3.5 - 5.1 mmol/L [facility] Work Phone: [phone] Sodium [Moles/Vol] 137 mmol/L 135 - 145 mmol/L [facility] Work Phone: [phone] Urea nitrogen (BldV) [Mass/Vol] 15 mg/dL 7 - 20 mg/dL [facility] Work Phone: [phone] CBC auto differentialOrdered By: Linda Mcknight on 05-24-2021 Absolute Baso # 0.0 10*3/uL 0.0 - 0.2 10*3/uL [facility] Work Phone: [phone] Absolute Neut # 5.5 10*3/uL 1.8 - 7.0 10*3/uL [facility] Work Phone: [phone] Basophils/100 WBC (Bld) 0.5 % 0.0 - 2.0 % [facility] Work Phone: [phone] Eosinophils (Bld) [#/Vol] 0.3 10*3/uL 0.0 - 0.5 10*3/uL [facility] Work Phone: [phone] Eosinophils/100 WBC (Bld) 3.3 % 1.0 - 6.0 % [facility] Work Phone: [phone] Granulocytes/100 WBC (Bld) 72.8 % 40.0 - 80.0 % [facility] Work Phone: [phone] Hematocrit (Bld) [Volume fraction] 37.4 % Low 40.0 - 52.0 % [facility] Work Phone: [phone] Hemoglobin.gastrointest inal spec 1 Ql (Stl) 12.8 g/dL Low 13.0 - 18.0 g/dL [facility] Work Phone: [phone] Interpretation and review of laboratory results Abnormal [employer] Work Phone: 1 Lymphocytes (Bld) [#/Vol] 1.3 10*3/uL 1.0 - 4.3 10*3/uL [employer] Work Phone: [phone] Lymphocytes/100 WBC (Bld) 17.3 % Low 20.0 - 40.0 % [employer] Work Phone: MCH (RBC) [Entitic mass] 30.8 pg 26.0 - 34.0 pg [employer] Work Phone: 1 MCHC (RBC) [Mass/Vol] 34.3 % 32.0 - 36.0 % [employer] Work Phone: 1 MCV (RBC) [Entitic vol] 89.9 fL 80.0 - 98.0 fL [employer] Work Phone: Monocytes (Bld) [#/Vol] 0.5 10*3/uL 0.0 - 0.8 10*3/uL [employer] Work Phone: 1( Monocytes/100 WBC (Bld) 6.1 % 2.0 - 10.0 % [employer] Work Phone: 1 Platelet distribution width (Bld) [Ratio] 14.2 % 11.5 - 14.5 % [employer] Phone: 1 Platelet mean volume (Bld) [Entitic vol] 8.0 fL 7.4 - 10.4 fL [employer] Phone: ) Platelets (Bld) [#/Vol] 169 10*3/uL 140 - 440 10*3/uL [employer] Work Phone: ( RBC (Bld) [#/Vol] 4.17 10*6/uL Low 4.40 - 5.9 0 10*6/uL [employer] Work Phone: 1 WBC (Bld) [#/Vol] 7.6 10*3/uL 3.6 - 10.7 10*3/uL [employer] Work Phone: 1 Test Performed by [employer] [address] [facility] Work Phone: [facility] Work Phone: CR Chest 1 View Frontalon CR Chest 1 View Frontal [facility]: [id number]iology ACCESSION EXAM DATE/TIME PROCEDURE ORDERING PROVIDER [id number] 05/24/2021 05:59 EDT CR Chest 1 View Frontal MD FONTANA ALEX CPT code 17384 Reason For Exam (CR Chest 1 View [...] Transcribed Date and Time: 05/24/2021 8:47 Normal [facility] CR Elbow 3+ Views Lefton CR Elbow 3+ Views Left Patient Name: ALBIN ISSA Diagnostic Radiology ACCESSION EXAM DATE/TIME PROCEDURE ORDERING PROVIDER [id number] 05/24/2021 05:59 EDT CR Elbow 3+ Views Left MD FONTANA ALEX CPT code 43109 Reason For Exam (CR Elbow 3+ Views [...] Transcribed Date and Time: 05/24/2021 8:44 Normal [facility] CR Humerus 2+ Views Lefton 0 05-24-2021 CR Humerus 2+ Views Left Patient Name: ALBIN ISSA Diagnostic Radiology ACCESSION EXAM DATE/TIME PROCEDURE ORDERING PROVIDER [id number] 05/24/2021 17:43 EDT CR Humerus 2+ Views Left 14771 -SD MORENO CPT code 40804 Reason For Exam (CR Humerus 2+ Views [...] Transcribed Date and Time: 05/24/2021 5:44 Normal [facility] EKG 12 LeadOrdered By: Juan Alberto Fontana on 05-24-2021 [facility] Test Date: 2021-05-24 Pat Name: ALBIN ISSA Department: 1AH6 Room: [facility] Gender: M Box Icer: DOC : 1955 Requested By: JUAN ALBERTO FONTANA Order Number: [id number] Reading MD: Nicolas Gonzales Measurements Intervals Temple Rate: 66 P: 33 IN: 183 QRS: -35 QRSD: 112 T: 52 QT: 426 QTc: 447 Interpretive Statements Sinus rhythm ANTEROLATERAL INFARCT, OLD Electronically Signed On 05-24-2021 15:05:50 EDT by Nicolas Gonzales [employer] Work Phone: Mynor, [facility] Incoming Cardiology Results From Merge/Ep[employer] - 05/24/2021 3:06 PM EDT [facility] [employer] [facility] Test Date: 2021-05-24 Pat Name: ALBIN ISSA Department: 1AH6 Room: [facility] Gender: M Box Icer: DOC : 1955 Requested By: JUAN ALBERTO FONTANA Order Number: [id number] Reading MD: iNcolas Gonzales Measurements Intervals Temple Rate: 66 P: 33 IN: 183 QRS: -35 QRSD: 112 T: 52 QT: 426 QTc: 447 Interpretive Statements Sinus rhythm ANTEROLATERAL INFARCT, OLD Electronically Signed On 05-24-2021 15:05:50 EDT by Nicolas Gonzales [employer] Work Phone: [employer] Work Phone: Hemogram w/ Autodiffon 05-24 Abs Baso Cnt 0.0 10*3/uL Normal 0.0-0.2 [facility] Comment on above: Performed By: #### P HOS3, HEMDF, MG3, BMP3 #### [facility] [address] [place] [address] Abs Neutrophile Cnt 5.5 10*3/uL Normal 1.8-7.0 [facility] Comment on above: Performed By: #### P HOS3, HEMDF, MG3, BMP3 #### [facility] [address] [place] [address] Basophils/100 WBC (Bld) 0.5 % Normal 0.0-2.0 S [facility] Comment on above: Performed By: #### P HOS3, HEMDF, MG3, BMP3 #### [facility] [address] [place] [address] Eosinophils (Bld) [#/Vol] 0.3 10*3/uL Normal 0.0-0.5 [facility] Comment on above: Performed By: #### P HOS3, HEMDF, MG3, BMP3 #### [address] [address] [place], [place] Eosinophils/100 WBC (Bld) 3.3 % Normal 1.0-6.0 [facility] Comment on above: Performed By: #### P HOS3, HEMDF, MG3, BMP3 #### [address] [place] [address] [place], [place] Erythrocyte distribution width (RBC) [Ratio] 14.2 % Normal 11.5-14.5 [facility] Comment on above: Performed By: #### P HOS3, HEMDF, MG3, BMP3 #### [address] [place] [address] [place], [place] Granulocytes/100 WBC (Bld) 72.8 % Normal 40.0-80.0 [facility] Comment on above: Performed By: #### P HOS3, HEMDF, MG3, BMP3 #### [place] [address] [place], [place] Hematocrit (Bld) [Volume fraction] 37.4 % Low 40.0-52.0 [facility] Comment on above: Performed By: #### P HOS3, HEMDF, MG3, BMP3 #### [address] Hemoglobin (Bld) [Mass/Vol] 12.8 g/dL Low 13.0-18.0 [facility] Comment on above: Performed By: #### P HOS3, HEMDF, MG3, BMP3 #### [address] [place] [address] [place], [place] Lymphocytes (Bld) [#/Vol] 1.3 10*3/uL Normal 1.0-4.3 [facility] Comment on above: Performed By: #### P HOS3, HEMDF, MG3, BMP3 #### [address] Lymphocytes/100 WBC (Bld) 17.3 % Low 20.0-40.0 [facility] Comment on above: Performed By: #### P HOS3, HEMDF, MG3, BMP3 #### [address] MCH (RBC) [Entitic mass] 30.8 pg Normal 26.0-34.0 [facility] Comment on above: Performed By: #### P HOS3, HEMDF, MG3, BMP3 #### [address] MCHC 34.3 % Normal 32.0-36.0 [facility] Comment on above: Performed By: #### P HOS3, HEMDF, MG3, BMP3 #### [address] MCV (RBC) [Entitic vol] 89.9 fL Normal 80.0-98.0 [facility] Comment on above: Performed By: #### P HOS3, HEMDF, MG3, BMP3 #### [address] Monocytes (Bld) [#/Vol] 0.5 10*3/uL Normal 0.0-0.8 [facility] Comment on above: Performed By: #### P HOS3, HEMDF, MG3, BMP3 #### [address] Monocytes/100 WBC (Bld) 6.1 % Normal 2.0-10.0 [facility] Comment on above: Performed By: #### P HOS3, HEMDF, MG3, BMP3 #### [address] Platelet mean volume (Bld) [Entitic vol] 8.0 fL Normal 7.4-10.4 [facility] Comment on above: Performed By: #### P HOS3, HEMDF, MG3, BMP3 #### [address] Platelets (Bld) [#/Vol] 169 10*3/uL Normal 140-440 [facility] Comment on above: Performed By: #### P HOS3, HEMDF, MG3, BMP3 #### [address] [address] RBC (Bld) [#/Vol] 4.17 10*6/uL Low 4.40-5.90 [facility] Comment on above: Performed By: #### P HOS3, HEMDF, MG3, BMP3 #### [address] [address] WBC (Bld) [#/Vol] 7.6 10*3/uL Normal 3.6-10.7 [facility] Comment on above: Performed By: #### P HOS3, HEMDF, MG3, BMP3 #### [address] [address] Magnesiumon 05-24-2021 Magnesium [Mass/Vol] 2.0 mg/dL Normal 1.6-2.3 [facility] Comment on above: Performed By: #### P HOS3, HEMDF, MG3, BMP3 #### [address] [address] MagnesiumOrdered By: Sd trevino on 05-24-2021 Magnesium [Mass/Vol] 2.0 mg/dL 1.6 - 2 .3 mg/dL [facility] Work Phone: No Panel InformationOrdered By: Linda Mcknight on 05-24-2021 Test Performed by [id number] [place] [address] Work Phone: [phone] [facility] Work Phone: OPERATIVE REPORTOrdered By: 3m Scanning on 05-24-2021 [facility] Work Phone: Op Noteon 05-24-2021 Op Note [place] [address] [place] [address] Dept: [phone] Loc: [phone] Operative Report Patient Name: Albin Issa Date of : 1955 Date of Surgery: 05/24/21 Pre-operative diagnosis: Left distal humeral shaft fracture Post-operative diagnosis: Same Procedure(s): Open reduction internal fixation of left humeral shaft fracture (CPT 47900) Surgeon: Paco Biswas M.D. Housing Assistant(s): Frank Leo M.D. and Carol Ascencio M.D. [...] as well as medical complications such as NM, stroke, PE, DVT, and even . Pt [...] Biswas MD at 05/24/21, 6:39 PM Normal [facility] Phosphoruson 05-24-2021 Phosphate [Mass/Vol] 2.9 mg/dL Normal 2.5-4.5 [facility] Comment on above: Performed By: #### P HOS3, HEMDF, MG3, BMP3 #### [address] PhosphorusOrdered By: Sd Moreno on 05-24-2021 Phosphate [Mass/Vol] 2.9 mg/dL 2.5 - 4 .5 mg/dL [facility] Work Phone: Prothrombin Timeon INR 1.0 Normal 0.9-1.1 [facility] Comment on above: Result Comment: Hilario mmended [...] Infarction Performed By: #### C OVID #### [address] PT Coag (PPP) [Time] 11.2 s Normal 9.0-12.0 [facility] Comment on above: Result Comment: . Performed By: #### C OVID #### [address] Protime-INROrdered By: Juan Alberto Fontana on 05-24-2021 INR Coag (Bld) [Relative time] 1.0 {INR} [facility] Work Phone: [phone] Comment on above: Recommended Anticoag ulant Therapy: [...] - 12.0 s [facility] [employer] Work Phone: [phone] Comment on above: . Test Performed by [employer], [facility] [place] [address] [employer] Work Phone: [phone] [facility] Work Phone: [phone] TS GELon 05-24-2021 TS GEL ABO Group: O Rh, Gel: POS Antibody Screen Gel: NEG Normal [employer] Comment on above: Performed By: #### T SGL #### [employer] TYPE AND SCREENOrdered By: Eder Fontana on 05-24-2021 ABO Grouping [employer] Work Phone: [phone] Type Positive [facility] Work Phone: [phone] Performed by [employer], [facility] [place] [address] [employer] Work Phone: [phone] [employer] Work Phone: [phone] XR CHEST 1 VWOrdered By: Magdalene Fontana on 05-24-2021 Patient Name: ALBIN ISSA Diagnostic Radiology ACCESSION EXAM DATE/TIME PROCEDURE ORDERING PROVIDER [id number] 05/24/2021 05:59 EDT CR Chest 1 View Frontal MD FONTANA ALEX CPT code 61606 Reason For Exam (CR Chest 1 View [...] Phone: [place], [facility] Incoming Radiology Results From [facility] - 05/24/2021 8:51 AM EDT Patient Name: ALBIN ISSA Diagnostic Radiology ACCESSION EXAM DATE/TIME PROCEDURE ORDERING PROVIDER [id number] 05/24/2021 05:59 EDT CR Chest 1 View Frontal MD FONTANA ALEX CPT code 92792 Reason For Exam (CR Chest 1 View [...] Radiology ACCESSION EXAM DATE/TIME PROCEDURE ORDERING PROVIDER [id number] 05/24/2021 05:59 EDT CR Elbow 3+ Views Left MD FONTANA ALEX CPT code 15810 Reason For Exam (CR Elbow 3+ Views [...] Time: 05/24/2021 8:44 [facility] Work Phone: [place], [facility] Incoming Radiology Results From [facility] - 05/24/2021 8:48 AM EDT Patient Name: ALBIN ISSA Diagnostic Radiology ACCESSION EXAM DATE/TIME PROCEDURE ORDERING PROVIDER [id number] 05/24/2021 05:59 EDT CR Elbow 3+ Views Left MD FONTANA ALEX CPT code 67922 Reason For Exam (CR Elbow 3+ Views [...] Radiology ACCESSION EXAM DATE/TIME PROCEDURE ORDERING PROVIDER [id number] 05/24/2021 17:43 EDT CR Humerus 2+ Views Left [address] SD BHARDWAJ CPT code 70888 Reason For Exam (CR Humerus 2+ Views [...] DIANE Transcribed Date and Time: 05/24/2021 5:44 [facility] Work Phone: [facility] Results From [facility] - 05/24/2021 5:47 PM EDT Patient Name: ALBIN ISSA Diagnostic Radiology ACCESSION EXAM DATE/TIME PROCEDURE ORDERING PROVIDER [id number] 05/24/2021 17:43 EDT CR Humerus 2+ Views Left 63236 SD BHARDWAJ CPT code 35165 Reason For Exam (CR Humerus 2+ Views [...] and Time: 05/24/2021 5:44 [facility] Work Phone: [facility] Work Phone: PROGRESSon 04-20-2020 PROGRESS HNO ID: [id number] Author: Radha (PtBarbie Yu Service: ? Author Type: Physical Therapist Type: Progress Notes Filed: 04/20/2020 9:16 AM Note Text: 04/20/2020 [facility] PHYSICAL THERAPY [...] 07/06/19 through 09/05/19 Goals updated on 02/17/2020. [place] in home exercise program. (Met) Patient will [...] additional follow-up appointments. Radha Yu PT Normal [facility] CNTHERAPYon 02-17-2020 CNTHERAPY OT/PT/Speech Visit (PTWS) ALBIN ISSA ([id number]) 1955 M Date Time Provider Department 02/17/20 9:30 AM RADHA YU (PT) PTWS Date Time Provider Department Center 02/17/2020 9:30 AM [id number] YU (PT) PTWS [facility] Reason for Visit: PT Progress [...] 07/06/19 through 09/05/19 Goals updated on 02/17/2020. [place] in home exercise program. (Met) Patient will [...] belt utilized during session for safety. Billing: [facility]: Therapeutic Exercise (15686): 1:1 time: 23 minutes (2 units: 23-37 mins) Gait Training (34758): 1:1 time: 15 minutes (1 unit: 8-22 mins) Total time: 38 minutes RYAN Aldana PT 04/20/2020 9:16 AM Signed 04/20/2020 [facility] PHYSICAL THERAPY [...] 07/06/19 through 09/05/19 Goals updated on 02/17/2020. [place] in home exercise program. (Met) Patient will [...] appointments. Radha Yu PT Letter Text Normal [facility] PROGRESSon 02-17-2020 PROGRESS HNO ID: [id number] Author: Radha (Ryan) Gigi Service: ? Author [...] 07/06/19 through 09/05/19 Goals updated on 02/17/2020. [place] in home exercise program. (Met) Patient will [...] belt utilized during session for safety. Billing: [facility]: Therapeutic Exercise (84214): 1:1 time: 23 minutes (2 units: 23-37 mins) Gait Training (10260): 1:1 time: 15 minutes (1 unit: 8-22 mins) Total time: 38 minutes Radha Yu PT Normal [facility] CNTHERAPYon 01-25-2020 CNTHERAPY OT/PT/Speech Visit (PTWS) ALBIN ISSA ([id number]) 1955 M Date Time Provider Department 01/25/20 3:30 PM RADHA YU (PT) PTWS Date Time Provider Department Center 01/25/2020 3:30 PM [id number] YU (PT) PTWS [facility] Reason for Visit: Physical Therapy [...] belt utilized during session for safety. Billing: [facility]: Therapeutic Exercise (59458): 1:1 time: 32 minutes (2 units: 23-37 mins) Gait Training (94450): 1:1 time: 18 minutes (1 unit: 8-22 mins) Total time: 50 minutes Radha Yu PT Normal [facility] PROGRESSon 01-25-2020 PROGRESS HNO ID: [id number] Author: Radha (Pt) Gigi Service: ? Author [...] ASSESSMENT: Albin Carlita Issa demonstrated improvements in standing balance, progression [...] belt utilized during session for safety. Billing: [facility]: Therapeutic Exercise (69457): 1:1 time: 32 minutes (2 units: 23-37 mins) Gait Training (32387): 1:1 time: 18 minutes (1 unit: 8-22 mins) Total time: 50 minutes Radha Yu PT Normal [facility] CNTHERAPYon 01-22-2020 CNTHERAPY OT/PT/Speech Visit (PTWS) ALBIN ISSA ([id number]) 1955 M Date Time Provider Department 01/22/20 1:45 PM RADHA YU (PT) PTWS Date Time Provider Department Center 01/22/2020 1:45 PM [id number] YU (PT) PTWS [facility] Reason for Visit: Physical Therapy [...] for Visit: Pt stating he saw the silk trimmer again and was instructed to use 5 [...] assess proper use of assistive device. Billing: [facility]: Therapeutic Exercise (30205): 1:1 time: 28 minutes (2 units: 23-37 mins) Gait Training (41397): 1:1 time: 15 minutes (1 unit: 8-22 mins) Total time: 43 minutes Radha Yu PT Normal [facility] PROGRESSon 01-22-2020 PROGRESS HNO ID: [id number] Author: Radha (Pt) Gigi Service: ? Author [...] for Visit: Pt stating he saw the silk trimmer again and was instructed to use 5 [...] assess proper use of assistive device. Billing: [facility]: Therapeutic Exercise (33565): 1:1 time: 28 minutes (2 units: 23-37 mins) Gait Training (68467): 1:1 time: 15 minutes (1 unit: 8-22 mins) Total time: 43 minutes RYAN Aldana [facility] CNTHERAPYon 01-18-2020 CNTHERAPY OT/PT/Speech Visit (PTWS) ALBIN ISSA ([id number]) 1955 M Date Time Provider Department 01/18/20 3:30 PM RADHA YU (PT) PTWS Date Time Provider Department Center 01/18/2020 3:30 PM [id number] YU (PT) PTWS [facility] Reason for Visit: Physical Therapy [...] Albin Zazueta Luis Manuel demonstrated improvements in balance activities and gait. [...] belt utilized during session for safety. Billing: [facility]: Therapeutic Exercise (04827): 1:1 time: 25 minutes (2 units: 23-37 mins) Gait Training (93307): 1:1 time: 15 minutes (1 unit: 8-22 mins) Total time: 40 minutes Radha Yu PT Normal [facility] PROGRESSon 01-18-2020 PROGRESS HNO ID: [id number] Author: Radha (Pt) Gigi Service: ? Author [...] belt utilized during session for safety. Billing: [facility]: Therapeutic Exercise (24682): 1:1 time: 25 minutes (2 units: 23-37 mins) Gait Training (34217): 1:1 time: 15 minutes (1 unit: 8-22 mins) Total time: 40 minutes Radha Yu PT Normal [facility] CNTHERAPYon 01-15-2020 CNTHERAPY OT/PT/Speech Visit (PTWS) ALBIN ISSA ([id number]) 1955 M Date Time Provider Department 01/15/20 1:45 PM RADHA YU (PT) PTWS Date Time Provider Department Center 01/15/2020 1:45 PM [id number] YU (PT) PTKAIT [facility] Reason for Visit: Physical Therapy [...] assess proper use of assistive device. Billing: [facility]: Therapeutic Exercise (00930): 1:1 time: 27 minutes (2 units: 23-37 mins) Gait Training (05581): 1:1 time: 15 minutes (1 unit: 8-22 mins) Total time: 42 minutes Radha Yu PT Normal [facility] PROGRESSon 01-15-2020 PROGRESS HNO ID: [id number] Author: Radha (Pt) Gigi Service: ? Author [...] assess proper use of assistive device. Billing: [facility]: Therapeutic Exercise (53113): 1:1 time: 27 minutes (2 units: 23-37 mins) Gait Training (57377): 1:1 time: 15 minutes (1 unit: 8-22 mins) Total time: 42 minutes Radha Yu PT Normal [facility] CNTHERAPYon 01-04-2020 CNTHERAPY OT/PT/Speech Visit (PTWS) ALBIN ISSA ([id number]) 1955 M Date Time Provider Department 01/04/20 3:30 PM RADHA YU (PT) PTWS Date Time Provider Department Center 01/04/2020 3:30 PM [id number] YU (PT) PTWS [facility] Reason for Visit: PT Progress Note [7056] Reason For Visit History Recorded Primary Visit Diagnosis:S/P AKA (above knee amputation), right (HCC) [Z89.611] Allergies As of Date: 01/04/2020 (Not on File) Date Reviewed: Never Reviewed Progress Notes: Radha Yu, PT 01/04/2020 7:11 PM Signed Episode Visit [...] 07/06/19 through 09/05/19 Goals updated on 01/04/2020. [place] in home exercise program. (Met) Patient will [...] He states he has an appt with silk trimmer this Thursday and will discuss with him. Pain: Pain [...] belt utilized during session for safety. Billing: [facility]: Therapeutic Exercise (12028): 1:1 time: 25 minutes (2 units: 23-37 mins) Gait Training (41111): 1:1 time: 15 minutes (1 unit: 8-22 mins) Total time: 40 minutes Radha Yu PT Normal [facility] PROGRESSon 01-04-2020 PROGRESS HNO ID: [id number] Author: Radha (Pt) Gigi Service: ? Author [...] 07/06/19 through 09/05/19 Goals updated on 01/04/2020. [place] in home exercise program. (Met) Patient will [...] He states he has an appt with silk trimmer this and will discuss with him. Pain: [...] belt utilized during session for safety. Billing: [facility]: Therapeutic Exercise (12564): 1:1 time: 25 minutes (2 units: 23-37 mins) Gait Training (18778): 1:1 time: 15 minutes (1 unit: 8-22 mins) Total time: 40 minutes Radha Yu PT Normal [facility] CNTHERAPYon 12-30-2019 CNTHERAPY OT/PT/Speech Visit (PTWS) LUIS MANUELALBIN ([id number]) 1955 M Date Time Provider Department 12/30/19 10:15 AM RADHA YU (PT) PTWS Date Time Provider Department Center 12/30/2019 10:15 AM [id number] YU (PT) PTWS [facility] Reason for Visit: Physical Therapy [...] assess proper use of assistive device. Billing: [facility]: Therapeutic Exercise (67767): 1:1 time: 15 minutes (1 unit: 8-22 mins) Gait Training (55426): 1:1 time: 28 minutes (2 units: 23-37 mins) Total time: 43 minutes Radha Yu PT Normal [facility] PROGRESSon 12-30-2019 PROGRESS HNO ID: [id number] Author: Radha (Pt) Gigi Service: ? Author [...] assess proper use of assistive device. Billing: [facility]: Therapeutic Exercise (88803): 1:1 time: 15 minutes (1 unit: 8-22 mins) Gait Training (48337): 1:1 time: 28 minutes (2 units: 23-37 mins) Total time: 43 minutes Radha Yu PT Normal [facility] CNTHERAPYon 12-25-2019 CNTHERAPY OT/PT/Speech Visit (PTWS) ALBIN ISSA ([id number]) 1955 M Date Time Provider Department 12/25/19 2:00 PM ANN MESSINA (COMMODITY BUYER) PTWS Date Time Provider Department Center 12/25/2019 2:00 PM [id number], NANCY (COMMODITY BUYER) PTWS [facility] Reason for Visit: Physical Therapy [503] Primary Visit Diagnosis:S/P AKA (above knee amputation), right ([facility]) [Z89.611] Allergies As of Date: 12/25/2019 [...] safety. Cueing for proper step length. Billing: [facility]: Therapeutic Exercise (48515): 1:1 time: 13 minutes (1 unit: 8-22 mins) Gait Training (46448): 1:1 time: 29 minutes (2 units: 23-37 mins) Total time: 42 minutes Ann Messina PT-Eder Sarmiento PT Previous Version Normal [facility] PROGRESSon 12-25-2019 PROGRESS HNO ID: [id number] Author: Fidel Sarmiento Service: ? Author Type: [...] safety. Cueing for proper step length. Billing: [facility]: Therapeutic Exercise (84113): 1:1 time: 13 minutes (1 unit: 8-22 mins) Gait Training (80887): 1:1 time: 29 minutes (2 units: 23-37 mins) Total time: 42 minutes Ann Messina PT-RYAN Davis [facility] CNTHERAPYon 12-21-2019 CNTHERAPY OT/PT/Speech Visit (PTWS) ALBIN ISSA ([id number]) 1955 M Date Time Provider Department 12/21/19 2:45 PM ANN MESSINA (COMMODITY BUYER) PTWS Date Time Provider Department Center 12/21/2019 2:45 PM [id number], NANCY (COMMODITY BUYER) PTWS [facility] Reason for Visit: Physical Therapy [...] belt utilized during session for safety. Billing: [facility]: Therapeutic Exercise (30260): 1:1 time: 15 minutes (1 unit: 8-22 mins) Gait Training (23553): 1:1 time: 30 minutes (2 units: 23-37 mins) Total time: 45 minutes MOE Puga PT Previous Version Normal [facility] PROGRESSon 12-21-2019 PROGRESS HNO ID: [id number] Author: Radha Yu Service: ? Author Type: [...] belt utilized during session for safety. Billing: [facility]: Therapeutic Exercise (47003): 1:1 time: 15 minutes (1 unit: 8-22 mins) Gait Training (22181): 1:1 time: 30 minutes (2 units: 23-37 mins) Total time: 45 minutes Ann Messina, PT-A Radha Yu PT Normal [facility] CNTHERAPYon 12-18-2019 CNTHERAPY OT/PT/Speech Visit (PTWS) ALBIN ISSA ([id number]) 1955 M Date Time Provider Department 12/18/19 1:15 PM ANN MESSINA (COMMODITY BUYER) PTWS Date Time Provider Department Center 12/18/2019 1:15 PM [id number], NANCY (COMMODITY BUYER) PTWS [facility] Reason for Visit: Physical Therapy [503] Primary Visit Diagnosis:S/P AKA (above knee amputation), right ([facility]) [Z89.611] Allergies As of Date: 12/18/2019 [...] cues for upright posture during gait. Billing: [facility]: Therapeutic Exercise (74938): 1:1 time: 15 minutes (1 unit: 8-22 mins) Gait Training (20742): 1:1 time: 25 minutes (2 units: 23-37 mins) Total time: 40 minutes Ann Messina PT-Eder Phelps PT Previous Version Normal [facility] PROGRESSon 12-18-2019 PROGRESS HNO ID: [id number] Author: Anshu (Ryan) Lenin Service: ? Author Type: Physical Therapist Type: [...] cues for upright posture during gait. Billing: [facility]: Therapeutic Exercise (25092): 1:1 time: 15 minutes (1 unit: 8-22 mins) Gait Training (00828): 1:1 time: 25 minutes (2 units: 23-37 mins) Total time: 40 minutes MOE Puga PT Normal [facility] CNTHERAPYon 12-07-2019 CNTHERAPY OT/PT/Speech Visit (PTWS) ALBIN ISSA ([id number]) 1955 M Date Time Provider Department 12/07/19 10:30 AM RADHA YU (PT) PTWS Date Time Provider Department Center 12/07/2019 10:30 AM [id number] YU (PT) PTWS [facility] Reason for Visit: PT Progress [...] 07/06/19 through 09/05/19 Goals updated on 10/16/2019. [place] in home exercise program. (Met) Patient will [...] ambulating with 2 LBQCs. He notes the silk trimmer took about 3/4 inches off of it [...] R LE above the knee prosthesis). Billing: [facility]: Therapeutic Exercise (68578): 1:1 time: 30 minutes (2 units: 23-37 mins) Gait Training (14046): 1:1 time: 10 minutes (1 unit: 8-22 mins) Total time: 40 minutes Radha Yu PT Previous Version Letter Text Normal [facility] PROGRESSon 12-07-2019 PROGRESS HNO ID: [id number] Author: Radha (Pt) Gigi Service: ? Author [...] 07/06/19 through 09/05/19 Goals updated on 10/16/2019. [place] in home exercise program. (Met) Patient will [...] ambulating with 2 LBQCs. He notes the silk trimmer took about 3/4 inches off of it [...] R LE above the knee prosthesis). Billing: [facility]: Therapeutic Exercise (99198): 1:1 time: 30 minutes (2 units: 23-37 mins) Gait Training (49054): 1:1 time: 10 minutes (1 unit: 8-22 mins) Total time: 40 minutes Radha Yu PT Normal [facility] CNTHERAPYon 10-16-2019 CNTHERAPY OT/PT/Speech Visit (PTWS) ALBIN ISSA ([id number]) 1955 M Date Time Provider Department 10/16/19 2:30 PM RADHA YU (PT) PTWS Date Time Provider Department Center 10/16/2019 2:30 PM [id number] YU (PT) PTWS [facility] Reason for Visit: PT Progress [...] 07/06/19 through 09/05/19 Goals updated on 09/11/2019. [place] in [place] exercise program. (Met) Patient will [...] as noted. Objective measurements and reassessment. Billing: [facility]: Therapeutic Exercise (66934): 1:1 time: 40 minutes (3 units: 38-52 mins) Total time: 40 minutes Radha Yu PT Normal [facility] PROGRESSon 10-16-2019 PROGRESS HNO ID: [id number] Author: Radha (Pt) Gigi Service: ? Author Type: Physical Therapist Type: Progress Notes Filed: 10/16/2019 3:46 PM Note Text: Episode Visit Count: 21 Therapist That Will Oversee The Plan Of Care: Marvinj carlosRadha Start of Care Date: 07/06/19 Onset Date: [...] 07/06/19 through 09/05/19 Goals updated on 09/11/2019. [place] in home exercise program. (Met) Patient will [...] as noted. Objective measurements and reassessment. Billing: [facility]: Therapeutic Exercise (36793): 1:1 time: 40 minutes (3 units: 38-52 mins) Total time: 40 minutes RYAN Aldana [facility] CNTHERAPYon 10-02-2019 CNTHERAPY OT/PT/Speech Visit (PTWS) ALBIN ISSA ([id number]) 1955 M Date Time Provider Department 10/02/19 8:00 AM RADHA YU (PT) PTWS Date Time Provider Department Center 10/02/2019 8:00 AM [id number] YU (PT) PTWS [facility] Reason for Visit: Physical Therapy [...] assess proper use of assistive device. Billing: [facility]: Therapeutic Exercise (21729): 1:1 time: 32 minutes (2 units: 23-37 mins) Gait Training (76400): 1:1 time: 8 minutes (1 unit: 8-22 mins) Total time: 40 minutes Radha Lemon PT Normal [facility] PROGRESSon 10-02-2019 PROGRESS HNO ID: [id number] Author: Radha (Pt) Gigi Service: ? Author [...] assess proper use of assistive device. Billing: [facility]: Therapeutic Exercise (22417): 1:1 time: 32 minutes (2 units: 23-37 mins) Gait Training (71627): 1:1 time: 8 minutes (1 unit: 8-22 mins) Total time: 40 minutes Radha Yu PT Normal [facility] CNTHERAPYon 09-23-2019 CNTHERAPY OT/PT/Speech Visit (PTWS) ALBIN ISSA ([id number]) 1955 M Date Time Provider Department 09/23/19 2:15 PM ANN MESSINA (COMMODITY BUYER) PTWS Date Time Provider Department Center 09/23/2019 2:15 PM [id number], NANCY (COMMODITY BUYER) PTWS [facility] Reason for Visit: Physical Therapy [...] 1: Standing hip abductions left 3# 1x23 [id number] and right 3# 2x40 2: Standing hip [...] verbal and visual cuing. Billing:KX modifier applied [facility]: Therapeutic Exercise (88942): 1:1 time: 40 minutes (3 units: 38-52 mins) Total time: 40 minutes Ann Messina PTRichard Yu, RYAN Previous Version Normal [facility] PROGRESSon 09-23-2019 PROGRESS HNO ID: [id number] Author: Radha (Pt) Marvinj carlos Service: ? [...] 1: Standing hip abductions left 3# 1x23 [id number] and right 3# 2x40 2: Standing hip [...] verbal and visual cuing. Billing:KX modifier applied [facility]: Therapeutic Exercise (46508): 1:1 time: 40 minutes (3 units: 38-52 mins) Total time: 40 minutes Ann Messina, PT-A Radha Yu, PT Normal [facility] CNTHERAPYon 09-11-2019 CNTHERAPY OT/PT/Speech Visit (PTWS) ALBIN ISSA ([id number]) 1955 M Date Time Provider Department 09/11/19 8:00 AM RADHA YU (PT) PTWS Date Time Provider Department Center 09/11/2019 8:00 AM [id number] YU (PT) PTWS [facility] Reason for Visit: PT Progress [...] 07/06/19 through 09/05/19 Goals updated on 09/11/2019. [place] in home exercise program. (Met) Patient will [...] assess proper use of assistive device. Billing: [facility]: Therapeutic Exercise (25531): 1:1 time: 27 minutes (2 units: 23-37 mins) Gait Training (82832): 1:1 time: 15 minutes (1 unit: 8-22 mins) Total time: 42 minutes Radha Yu PT Letter Text Normal [facility] PROGRESSon 09-11-2019 PROGRESS HNO ID: [id number] Author: Radha (Pt) Gigi Service: ? Author [...] 07/06/19 through 09/05/19 Goals updated on 09/11/2019. [place] in home exercise program. (Met) Patient will [...] assess proper use of assistive device. Billing: [facility]: Therapeutic Exercise (05556): 1:1 time: 27 minutes (2 units: 23-37 mins) Gait Training (05843): 1:1 time: 15 minutes (1 unit: 8-22 mins) Total time: 42 minutes RYAN Aldana [facility] CNTHERAPYon 09-04-2019 CNTHERAPY OT/PT/Speech Visit (PTWS) ALBIN ISSA ([id number]) 1955 M Date Time Provider Department 09/04/19 2:00 PM ANN MESSINA (COMMODITY BUYER) PTWS Date Time Provider Department Center 09/04/2019 2:00 PM [id number], NANCY (COMMODITY BUYER) PTWS [facility] Reason for Visit: Physical Therapy [503] Primary Visit Diagnosis:S/P AKA (above knee amputation), right ([facility]) [Z89.611] Allergies As of Date: 09/04/2019 (Not [...] belt utilized during session for safety. Billing: [facility]: Therapeutic Exercise (03074): 1:1 time: 23 minutes (2 units: 23-37 mins) Gait Training (53773): 1:1 time: 20 minutes (1 unit: 8-22 mins) Total time: 43 minutes Ann Messina PT-Eder Sarmiento PT Previous Version [facility] PROGRESSon 09-04-2019 PROGRESS HNO ID: [id number] Author: Fidel Sarmiento Service: ? Author Type: [...] belt utilized during session for safety. Billing: [facility]: Therapeutic Exercise (47284): 1:1 time: 23 minutes (2 units: 23-37 mins) Gait Training (84797): 1:1 time: 20 minutes (1 unit: 8-22 mins) Total time: 43 minutes MOE Puga PT [facility] CNTHERAPYon 08-31-2019 CNTHERAPY OT/PT/Speech Visit (PTWS) ALBIN ISSA ([id number]) 1955 M Date Time Provider Department 08/31/19 1:15 PM ANN MESSINA (COMMODITY BUYER) PTWS Date Time Provider Department Center 08/31/2019 1:15 PM [id number], NANCY (COMMODITY BUYER) PTWS [facility] Reason for Visit: Physical Therapy [...] above. Gait belt used for safety. Billing: [facility]: Therapeutic Exercise (53517): 1:1 time: 28 minutes (2 units: 23-37 mins) Gait Training (43162): 1:1 time: 17 minutes (1 unit: 8-22 mins) Total time: 45 minutes Ann Messina, PT-Eder Yu PT Previous Version [facility] PROGRESSon 08-31-2019 PROGRESS HNO ID: [id number] Author: Radha (Pt) Gigi Service: ? Author [...] above. Gait belt used for safety. Billing: [facility]: Therapeutic Exercise (37678): 1:1 time: 28 minutes (2 units: 23-37 mins) Gait Training (64311): 1:1 time: 17 minutes (1 unit: 8-22 mins) Total time: 45 minutes Ann Messina, PT-Eder Yu PT [facility] CNTHERAPYon 08-28-2019 CNTHERAPY OT/PT/Speech Visit (PTWS) ALBIN ISSA ([id number]) 1955 M Date Time Provider Department 08/28/19 1:45 PM RADHA YU (PT) PTWS Date Time Provider Department Center 08/28/2019 1:45 PM [id number] YU (PT) PTWS [facility] Reason for Visit: Physical Therapy [...] for Visit: Pt states he saw the silk trimmer yesterday and they are discussing starting the [...] assess proper use of orthotic device; Billing: [facility]: Therapeutic Exercise (73408): 1:1 time: 20 minutes (1 unit: 8-22 mins) Gait Training (91875): 1:1 time: 17 minutes (1 unit: 8-22 mins) Total time: 37 minutes (Pt was late d/t garage door breaking.) Radha Yu PT [facility] PROGRESSon 08-28-2019 PROGRESS HNO ID: [id number] Author: Radha (Pt) Gigi Service: ? Author [...] for Visit: Pt states he saw the silk trimmer yesterday and they are discussing starting the [...] assess proper use of orthotic device; Billing: [facility]: Therapeutic Exercise (31237): 1:1 time: 20 minutes (1 unit: 8-22 mins) Gait Training (95475): 1:1 time: 17 minutes (1 unit: 8-22 mins) Total time: 37 minutes (Pt was late d/t garage door breaking.) Radha Yu PT [facility] CNTHERAPYon 08-26-2019 CNTHERAPY OT/PT/Speech Visit (PTWS) ALBIN ISSA ([id number]) 1955 M Date Time Provider Department 08/26/19 2:15 PM ANN MESSINA (COMMODITY BUYER) PTWS Date Time Provider Department Center 08/26/2019 2:15 PM [id number], NANCY (COMMODITY BUYER) PTWS [facility] Reason for Visit: Physical Therapy [503] Primary Visit Diagnosis:S/P AKA (above knee amputation), right ([facility]) [Z89.611] Allergies As of Date: 08/26/2019 [...] THERAPY PHYSICAL THERAPY TREATMENT NOTE ASSESSMENT: Albin Zazutea Luis Manuel demonstrated improvements in gait on level with [...] belt utilized during session for safety. Billing: [facility]: Therapeutic Exercise (60525): 1:1 time: 15 minutes (1 unit: 8-22 mins) Gait Training (31850): 1:1 time: 25 minutes (2 units: 23-37 mins) Total time: 40 minutes Ann Messina PT-Eder Yu PT Previous Version [facility] PROGRESSon 08-26-2019 PROGRESS HNO ID: [id number] Author: Radha (Pt) Gigi Service: ? Author [...] belt utilized during session for safety. Billing: [facility]: Therapeutic Exercise (69082): 1:1 time: 15 minutes (1 unit: 8-22 mins) Gait Training (83270): 1:1 time: 25 minutes (2 units: 23-37 mins) Total time: 40 minutes Ann Messina PTRYAN Ledesma [facility] CNTHERAPYon 08-24-2019 CNTHERAPY OT/PT/Speech Visit (PTWS) ALBIN ISSA ([id number]) 1955 M Date Time Provider Department 08/24/19 2:00 PM ANN MESSINA (COMMODITY BUYER) PTWS Date Time Provider Department Center 08/24/2019 2:00 PM [id number], NANCY (COMMODITY BUYER) PTWS [facility] Reason for Visit: Physical Therapy [503] Primary [...] belt utilized during session for safety. Billing: [facility]: Therapeutic Exercise (39067): 1:1 time: 15 minutes (1 unit: 8-22 mins) Gait Training (55478): 1:1 time: 30 minutes (2 units: 23-37 mins) Total time: 45 minutes MOE Puga PT Previous Version [facility] PROGRESSon 08-24-2019 PROGRESS HNO ID: [id number] Author: Radha (Ryan) Gigi Service: ? Author [...] Zazueta Luis Manuel demonstrated improvements in gait with B quad [...] belt utilized during session for safety. Billing: [facility]: Therapeutic Exercise (41115): 1:1 time: 15 minutes (1 unit: 8-22 mins) Gait Training (46304): 1:1 time: 30 minutes (2 units: 23-37 mins) Total time: 45 minutes Ann Messina PT-Eder Yu PT [facility] CNTHERAPYon 08-19-2019 CNTHERAPY OT/PT/Speech Visit (PTWS) ALBIN ISSA ([id number]) 1955 M Date Time Provider Department 08/19/19 11:00 AM RADHA YU (PT) PTWS Date Time Provider Department [place] 08/19/2019 11:00 AM [id number] YU (PT) PTWS [facility] Reason for Visit: Physical Therapy [503] Primary Visit Diagnosis:S/P AKA (above knee amputation), right ([facility]) [Z89.611] Other Visit Diagnosis:Liposarcoma of thigh, 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 Billing: [facility]: Therapeutic Exercise (02092): 1:1 time: 25 minutes (2 units: 23-37 mins) Gait Training (88710): 1:1 time: 20 minutes (1 unit: 8-22 mins) Total time: 45 minutes Radha Yu PT [facility] PROGRESSon 08-19-2019 PROGRESS HNO ID: [id number] Author: Radha (Pt) Gigi Service: ? Author [...] assess proper use of assistive device. Billing: [facility]: Therapeutic Exercise (46061): 1:1 time: 25 minutes (2 units: 23-37 mins) Gait Training (19255): 1:1 time: 20 minutes (1 unit: 8-22 mins) Total time: 45 minutes Radha Yu PT [facility] CNTHERAPYon 08-12-2019 CNTHERAPY OT/PT/Speech Visit (PTWS) ALBIN ISSA ([id number]) 1955 M Date Time Provider Department 08/12/19 1:30 PM RADHA YU (PT) PTWS Date Time Provider Department Center 08/12/2019 1:30 PM [id number] YU (PT) PTWS [facility] Reason for Visit: Physical Therapy [503] Primary Visit Diagnosis:S/P AKA (above knee amputation), right ([facility]) [Z89.611] Other Visit Diagnosis:Liposarcoma of thigh, 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 Author [...] (Not during activities in parallel bars.) Billing: [facility]: Therapeutic Exercise (32771): 1:1 time: 25 minutes (2 units: 23-37 mins) Gait Training (61797): 1:1 time: 20 minutes (1 unit: 8-22 mins) Total time: 45 minutes Radha Yu PT [facility] CNTHERAPYon 08-10-2019 CNTHERAPY OT/PT/Speech Visit (PTWS) ALBIN ISSA ([id number]) 1955 M Date Time Provider Department 08/10/19 12:45 PM RADHA YU (PT) PTWS Date Time Provider Department Center 08/10/2019 12:45 PM [id number], RADHA (PT) PTWS [facility] Reason for Visit: Physical Therapy [503] Primary Visit Diagnosis:S/P AKA (above knee amputation), right ([facility]) [Z89.611] Other Visit Diagnosis:Liposarcoma of thigh, 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 Billing: [facility]: Therapeutic Exercise (76501): 1:1 time: 25 minutes (2 units: 23-37 mins) Gait Training (68501): 1:1 time: 20 minutes (1 unit: 8-22 mins) Total time: 45 minutes Radha Yu PT [facility] PROGRESSon 08-10-2019 PROGRESS HNO ID: [id number] Author: Radha (Pt) Gigi Service: ? Author [...] his daughter is taking him to the [facility] today, but he is planning [...] belt utilized during session for safety. Billing: [facility]: Therapeutic Exercise (56771): 1:1 time: 25 minutes (2 units: 23-37 mins) Gait Training (80549): 1:1 time: 20 minutes (1 unit: 8-22 mins) Total time: 45 minutes Radha Yu PT [facility] CNTHERAPYon 08-07-2019 CNTHERAPY OT/PT/Speech Visit (PTWS) ALBIN ISSA ([id number]) 1955 M Date Time Provider Department 08/07/19 11:00 AM RADHA YU (PT) PTWS Date Time Provider Department Center 08/07/2019 11:00 AM [id number] YU (PT) PTWS [facility] Reason for Visit: Physical Therapy [...] using LB quad cane and railing. Billing: [facility]: Therapeutic Exercise (60582): 1:1 time: 25 minutes (2 units: 23-37 mins) Gait Training (53404): 1:1 time: 20 minutes (1 unit: 8-22 mins) Total time: 45 minutes Radha Yu PT [facility] PROGRESSon 08-07-2019 PROGRESS HNO ID: [id number] Author: Radha (Pt) Marvinj carlos Service: ? [...] using LB quad cane and railing. Billing: [facility]: Therapeutic Exercise (56786): 1:1 time: 25 minutes (2 units: 23-37 mins) Gait Training (65820): 1:1 time: 20 minutes (1 unit: 8-22 mins) Total time: 45 minutes Radha Yu PT [facility] CNTHERAPYon 08-05-2019 CNTHERAPY OT/PT/Speech Visit (PTWS) ALBIN ISSA ([id number]) 1955 M Date Time Provider Department 08/05/19 9:30 AM RADHA YU (PT) PTWS Date Time Provider Department Center 08/05/2019 9:30 AM [id number] YU (PT) PTWS [facility] Reason for Visit: Physical Therapy [503] Primary Visit Diagnosis:S/P AKA (above knee amputation), right ([facility]) [Z89.611] Other Visit Diagnosis:Liposarcoma of thigh, 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 [place] in home exercise program. (Met) Patient will [...] surface and 180 deg turns negotiation. Billing: [facility]: Therapeutic Exercise (31278): 1:1 time: 18 minutes (1 unit: 8-22 mins) Gait Training (14977): 1:1 time: 25 minutes (2 units: 23-37 mins) Total time: 43 minutes Radha Yu PT [facility] PROGRESSon 08-05-2019 PROGRESS HNO ID: [id number] Author: Radha (Pt) Gigi Service: ? Author [...] independence with HEP Increased strength Goals for [facility]: created on 07/06/19 through 09/05/19 Goals updated on 08/05/2019. [place] in home exercise program. (Met) Patient will [...] surface and 180 deg turns negotiation. Billing: [facility]: Therapeutic Exercise (68028): 1:1 time: 18 minutes (1 unit: 8-22 mins) Gait Training (38768): 1:1 time: 25 minutes (2 units: 23-37 mins) Total time: 43 minutes RYAN Aldana [facility] CNTHERAPYon 07-27-2019 CNTHERAPY OT/PT/Speech Visit (PTWS) ALBIN ISSA ([id number]) 1955 M Date Time Provider Department 07/27/19 8:30 AM RADHA YU (PT) PTWS Date Time Provider Department Center 07/27/2019 8:30 AM [id number] YU (PT) PTWS [facility] Reason for Visit: Physical Therapy [503] Primary Visit Diagnosis:S/P AKA (above knee amputation), right ([facility]) [Z89.611] Other Visit Diagnosis:Liposarcoma of thigh, 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 Billing: [facility]: Therapeutic Exercise (90937): 1:1 time: 25 minutes (2 units: 23-37 mins) Gait Training (47694): 1:1 time: 20 minutes (1 unit: 8-22 mins) Total time: 45 minutes Radha Yu PT [facility] PROGRESSon 07-27-2019 PROGRESS HNO ID: [id number] Author: Radha (Pt) Gigi Service: ? Author [...] level surfaces with 2 canes negotiation. Billing: [facility]: Therapeutic Exercise (29025): 1:1 time: 25 minutes (2 units: 23-37 mins) Gait Training (51899): 1:1 time: 20 minutes (1 unit: 8-22 mins) Total time: 45 minutes Radha Yu PT [facility] CNTHERAPYon 07-22-2019 CNTHERAPY OT/PT/Speech Visit (PTWS) LUIS MANUELALBIN CARR ([id number]) 1955 M Date Time Provider Department 07/22/19 1:30 PM RADHA YU (PT) PTWS Date Time Provider Department Center 07/22/2019 1:30 PM [id number] YU (PT) PTWS [facility] Reason for Visit: Physical Therapy [503] Primary Visit Diagnosis:S/P AKA (above knee amputation), right ([facility]) [Z89.611] Other Visit Diagnosis:Liposarcoma of thigh, 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 He has another f/u with the silk trimmer tomorrow. Pain: Pain Pain Level: 0 Post [...] identified in the objective section above. Billing: [facility]: Therapeutic Exercise (94845): 1:1 time: 25 minutes (2 units: 23-37 mins) Gait Training (48313): 1:1 time: 20 minutes (1 unit: 8-22 mins) Total time: 45 minutes Radha Yu PT [facility] PROGRESSon 07-22-2019 PROGRESS HNO ID: [id number] Author: Radha (Pt) Gigi Service: ? Author [...] session. He has another f/u with the silk trimmer tomorrow. Pain: Pain Pain Level: 0 Post [...] identified in the objective section above. Billing: [facility]: Therapeutic Exercise (35015): 1:1 time: 25 minutes (2 units: 23-37 mins) Gait Training (39073): 1:1 time: 20 minutes (1 unit: 8-22 mins) Total time: 45 minutes Radha Yu PT [facility] CNTHERAPYon 07-20-2019 CNTHERAPY OT/PT/Speech Visit (PTWS) ALBIN ISSA ([id number]) 1955 M Date Time Provider Department 07/20/19 8:30 AM RADHA YU (PT) PTWS Date Time Provider Department Center 07/20/2019 8:30 AM [id number] YU (PT) PTWS [facility] Reason for Visit: Physical Therapy [503] Primary Visit Diagnosis:S/P AKA (above knee amputation), right ([facility]) [Z89.611] Other Visit Diagnosis:Liposarcoma of thigh, 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 Billing: [facility]: Therapeutic Exercise (81943): 1:1 time: 25 minutes (2 units: 23-37 mins) Gait Training (32630): 1:1 time: 20 minutes (1 unit: 8-22 mins) Total time: 45 minutes Radha Yu PT [facility] PROGRESSon 07-20-2019 PROGRESS HNO ID: [id number] Author: Radha (Pt) Gigi Service: ? Author [...] identified in the objective section above. Billing: [facility]: Therapeutic Exercise (89530): 1:1 time: 25 minutes (2 units: 23-37 mins) Gait Training (34792): 1:1 time: 20 minutes (1 unit: 8-22 mins) Total time: 45 minutes Radha Yu PT [facility] CNTHERAPYon 07-17-2019 CNTHERAPY OT/PT/Speech Visit (PTWS) ALBIN ISSA ([id number]) 1955 M Date Time Provider Department 07/17/19 3:15 PM RADHA YU (PT) PTWS Date Time Provider Department Center 07/17/2019 3:15 PM [id number] YU (PT) PTWS [facility] Reason for Visit: Physical Therapy [503] Primary Visit Diagnosis:S/P AKA (above knee amputation), right ([facility]) [Z89.611] Other Visit Diagnosis:Liposarcoma of thigh, 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 Billing: [facility]: Therapeutic Exercise (38981): 1:1 time: 20 minutes (1 unit: 8-22 mins) Gait Training (34607): 1:1 time: 25 minutes (2 units: 23-37 mins) Total time: 45 minutes Radha Yu PT [facility] PROGRESSon 07-17-2019 PROGRESS HNO ID: [id number] Author: Radha (Pt) Gigi Service: ? Author Type: Physical Therapist Type: Progress Notes Filed: 07/17/2019 5:16 PM Note Text: Episode Visit Count: 4 Therapist That Will Oversee The Plan Of Care: Lemon, Radha Start of Care Date: 07/06/19 Onset [...] program was facilitated with verbal cueing. Billing: [facility]: Therapeutic Exercise (16883): 1:1 time: 20 minutes (1 unit: 8-22 mins) Gait Training (68861): 1:1 time: 25 minutes (2 units: 23-37 mins) Total time: 45 minutes Radha Yu PT [facility] CNTHERAPYon 07-13-2019 CNTHERAPY OT/PT/Speech Visit (PTWS) LUIS MANUELALBIN Zazueta ([id number]) 1955 M Date Time Provider Department 07/13/19 9:30 AM RADHA YU (PT) PTWS Date Time Provider Department Center 07/13/2019 9:30 AM [id number] YU (PT) PTWS [facility] Reason for Visit: Physical Therapy [503] Primary Visit Diagnosis:S/P AKA (above knee amputation), right ([facility]) [Z89.611] Other Visit Diagnosis:Liposarcoma of thigh, 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 Billing: [facility]: Therapeutic Exercise (18978): 1:1 time: 20 minutes (1 unit: 8-22 mins) Gait Training (19000): 1:1 time: 25 minutes (2 units: 23-37 mins) Total time: 45 minutes Radha Yu PT [facility] PROGRESSon 07-13-2019 PROGRESS HNO ID: [id number] Author: Radha (Pt) Gigi Service: ? Author Type: Physical Therapist Type: Progress Notes Filed: 07/13/2019 8:15 PM Note Text: Episode Visit Count: 3 Therapist That Will Oversee The Plan Of Care: MarvinMimi adkinsissa Start of Care Date: 07/06/19 Onset [...] for Visit: Pt states he saw the silk trimmer and he adjusted his prosthesis and is now fitting very comfortably when weight bearing. He presents today ambulating with his wheeled walker to [facility] (no w/c). Pain: Pain Pain Level: 0 [...] the proper sequence for stair negotiation. Billing: [facility]: Therapeutic Exercise (78264): 1:1 time: 20 minutes (1 unit: 8-22 mins) Gait Training (73337): 1:1 time: 25 minutes (2 units: 23-37 mins) Total time: 45 minutes Radha Yu PT [facility] CNTHERAPYon 07-08-2019 CNTHERAPY OT/PT/Speech Visit (PTWS) ALBIN ISSA ([id number]) 1955 M Date Time Provider Department 07/08/19 3:15 PM RADHA YU (PT) PTWS Date Time Provider Department Center 07/08/2019 3:15 PM [id number] YU (PT) PTWS [facility] Reason for Visit: Physical Therapy [503] Primary Visit Diagnosis:S/P AKA (above knee amputation), right ([facility]) [Z89.611] Other Visit Diagnosis:Liposarcoma of thigh, 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 Billing: [facility]: Therapeutic Exercise (15842): 1:1 time: 15 minutes (1 unit: 8-22 mins) Gait Training (32163): 1:1 time: 25 minutes (2 units: 23-37 mins) Total time: 40 minutes Radha Yu PT [facility] PROGRESSon 07-08-2019 PROGRESS HNO ID: [id number] Author: Radha (Pt) Gigi Service: ? Author [...] assess proper use of orthotic device. Billing: [facility]: Therapeutic Exercise (51044): 1:1 time: 15 minutes (1 unit: 8-22 mins) Gait Training (21339): 1:1 time: 25 minutes (2 units: 23-37 mins) Total time: 40 minutes RYAN Aldana [facility] CNTHERAPYon 07-06-2019 CNTHERAPY OT/PT/Speech Visit (PTWS) ALBIN ISSA ([id number]) 1955 M Date Time Provider Department 07/06/19 5:00 PM MARVINRADHA ADKINS (PT) PTWS Date Time Provider Department Center 07/06/2019 5:00 PM [id number] (PT) PTWS [facility] Reason for Visit: PT Eval [747] Primary Visit Diagnosis:S/P AKA (above knee amputation), right ([facility]) [Z89.611] Other Visit Diagnosis:Liposarcoma of thigh, 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 Patient will increase [...] AKA 01/26/19. He has been wearng the medical records field technician garment and ambulating independently with front wheeled [...] in weight bearing. He has f/u with [employer] 07/16/19. When not wearing his prosthetic, he is wearing the medical records field technician on his stump. He describes a ramp [...] *Pt was advised to continue to wear medical records field technician when not using prosthesis. He is to wear the prosthesis no more than 4 hours a day and less than that if wearing consecutive days. he is to discontinue use of prosthesis if develops any pressure points, skin redness or painful irritation on R LE. Pt was also enocuraged to keep his silk trimmer notified of any skin irritations, rubbing or [...] orthotic device; R LE AKA prosthesis. Billing: [facility]: Evaluation - Low Complexity (36600) Gait Training (69860): 1:1 time: 20 minutes (1 unit: 8-22 mins) Total time: 45 minutes Radha Yu PT Previous Version Radha Yu PT 07/06/2019 7:12 PM Signed Addended by: RADHA YU PT on: 07/06/2019 07:12 PM Modules accepted: Orders Letter Text [facility] PROGRESSon 07-06-2019 PROGRESS HNO ID: [id number] Author: Radha (Pt) Gigi Service: ? Author [...] of Care: created on 07/06/19 through 09/05/19 [place] in home exercise program. Patient will increase [...] AKA 01/26/19. He has been wearng the medical records field technician garment and ambulating independently with front wheeled [...] in weight bearing. He has f/u with [employer] 07/16/19. When not wearing his prosthetic, he is wearing the medical records field technician on his stump. He describes a ramp [...] *Pt was advised to continue to wear medical records field technician when not using prosthesis. He is to wear the prosthesis no more than 4 hours a day and less than that if wearing consecutive days. he is to discontinue use of prosthesis if develops any pressure points, skin redness or painful irritation on R LE. Pt was also enocuraged to keep his silk trimmer notified of any skin irritations, rubbing or [...] orthotic device; R LE AKA prosthesis. Billing: [facility]: Evaluation - Low Complexity (57498) Gait Training (48936): 1:1 time: 20 minutes (1 unit: 8-22 mins) Total time: 45 minutes RYAN Aldana [facility] Office Visit: evaluation les ions right leg - surgery 05/28/17on 07-03-2017 Alcoholism counseling (procedure) no Invalid Interpretation Code [facility] Work Phone: [phone] Dietary management education, guidance, and counseling (procedure) yes Invalid Interpretation Code [facility] Work Phone: [phone] Documentation of current medications (procedure) Done Invalid Interpretation Code [facility] Work Phone: [phone] Fall risk assessment No Invalid Interpretation Code [facility] Work Phone: [phone] Tobacco smoking status Current Invalid Interpretation Code [facility] Work Phone: [phone] Tobacco use status [facility] Former smoker Invalid Interpretation Code [facility] Work Phone: [phone] Office Visit: gallstones and abdominal painon 06-19-2017 Tobacco smoking status Current Invalid Interpretation Code [facility] Work Phone: Tobacco use status [facility] Former smoker Invalid Interpretation Code [facility] Work Phone: Office Visit: evaluation les ions right legon 05-15-2017 Tobacco smoking status Current Invalid Interpretation Code [facility] Work Phone: Tobacco use status [facility] Former smoker Invalid Interpretation Code [facility] Work Phone: Office Visiton 12-14-2016 Tobacco smoking status Current Invalid Interpretation Code [facility] Work Phone: Tobacco use status [facility] Former smoker Invalid Interpretation Code [facility] Work Phone: Clinical Lists Update: 10-29-2016 Cholesterol [Mass/Vol] 123 mg/dL Invalid Interpretation Code [facility] Work Phone: Cholesterol in HDL [Mass/Vol] 40 mg/dL Invalid Interpretation Code [facility] Work Phone: Cholesterol in LDL [Mass/Vol] 57 mg/dL Invalid Interpretation Code [facility] Work Phone: Triglyceride [Mass/Vol] 132 mg/dL Invalid Interpretation Code [facility] Work Phone: Clinical Lists Update: 05-28-2016 Left ventricular Ejection fraction 35 % Invalid Interpretation Code [facility] Work Phone: Lab Report: CBC W/Diff, Auto matedon 01-17-2016 Absolute Neut 3.0 X10 3/UL Invalid Interpretation Code 2.0-7.7 [facility] Work Phone: Basophils/100 WBC (Bld) 0.6 % Invalid Interpretation Code 0-1 [facility] Work Phone: Basophils/100 WBC Auto (Bld) 0.6 % Invalid Interpretation Code 0-1 [facility] Work Phone: Eosinophils/100 leukocytes 0.8 % Invalid Interpretation Code 0-5 [facility] Work Phone: Eosinophils/100 WBC (Bld) 0.8 % Invalid Interpretation Code 0-5 [facility] Work Phone: Erythrocyte distribution width (RBC) [Ratio] 13.4 % Invalid Interpretation Code 11.6-14.6 [facility] Work Phone: Erythrocyte distribution width Auto Ratio (RBC) 13.4 % Invalid Interpretation Code 11.6-14.6 [facility] Work Phone: Erythrocytes (RBC) 4.01 10*6/uL Low 4.6-6.[address] [facility] Work Phone: [phone] Hematocrit (Bld) [Volume fraction] 37.0 % Low 40-54 [facility] Work Phone: [phone] Hematocrit (HCT) 37.0 % Low 40-54 [facility] Work Phone: [phone] Hemoglobin (Bld) [Mass/Vol] 12.3 g/dL Low 13.0-16.5 [facility] Work Phone: [phone] Immature granulocytes/100 WBC (Bld) 0.800 % Invalid Interpretation Code 0.0-0.9 [facility] Work Phone: [phone] Lymphocytes 2.57 X10 3/UL Invalid Interpretation Code 0.83-4.51 [facility] Work Phone: [phone] Lymphocytes (Bld) [#/Vol] 2.57 X10 3/UL Invalid Interpretation Code 0.83-4.51 [facility] Work Phone: [phone] Lymphocytes/100 leukocytes 41.1 % High 19-41 [facility] Work Phone: [phone] Lymphocytes/100 WBC (Bld) 41.1 % High 19-41 [facility] Work Phone: [phone] MCH 30.7 pg Invalid Interpretation Code 27.0-32.0 [facility] Work Phone: [phone] MCH (RBC) [Entitic mass] 30.7 pg Invalid Interpretation Code 27.0-32.0 [facility] Work Phone: [phone] MCHC mass conc (RBC) 33.2 G/GL Invalid Interpretation Code 32-36 [facility] Work Phone: [phone] MCV 92.3 fL Invalid Interpretation Code 80-94 [facility] Work Phone: [phone] MCV (RBC) [Entitic vol] 92.3 fL Invalid Interpretation Code 80-94 [facility] Work Phone: [phone] mean corpuscular hemoglobin concentration, RBC 33.2 G/GL Invalid Interpretation Code 32-36 [facility] Work Phone: [phone] Monocytes/100 leukocytes 9.0 % Invalid Interpretation Code 0-10 [facility] Work Phone: Monocytes/100 WBC (Bld) 9.0 % Invalid Interpretation Code 0-10 [facility] Work Phone: neutrophil count, blood 3.0 X10 3/UL Invalid Interpretation Code 2.0-7.7 [facility] Work Phone: Neutrophils/100 WBC (Bld) 47.7 % Invalid Interpretation Code 47-70 [facility] Work Phone: Neutrophils/100 WBC Auto (Bld) 47.7 % Invalid Interpretation Code 47-70 [facility] Work Phone: [phone] Platelet mean volume (Bld) [Entitic vol] 9.1 fL Invalid Interpretation Code 6.2-12.0 [facility] Work Phone: Platelets 358 10*3/mm3 Invalid Interpretation Code 150-450 [facility] Work Phone: [phone] Platelets (Bld) [#/Vol] 358 10*3/uL Invalid Interpretation Code 150-450 [facility] Work Phone: PMV by Veronica 9.1 fL Invalid Interpretation Code 6.2-12.0 [facility] Work Phone: [phone] RBC (Bld) [#/Vol] 4.01 10*6/uL Low 4.6-6.2 [facility] Work Phone: RDW SD 43.9 fL Invalid Interpretation Code 35.1-43.9 [facility] Work Phone: [phone] red blood cell distribution width, size density 43.9 fL Invalid Interpretation Code 35.1-43.9 [facility] Work Phone: WBC (Bld) [#/Vol] 6.3 10*3/uL Invalid Interpretation Code 4.4-11.0 [facility] Work Phone: WBC (Leukocytes) 6.3 10*3/uL Invalid Interpretation Code 4.4-11.0 [facility] Work Phone: [phone] Office Visit: s/p severe R l eg streptoccal cellulitis, sepsis and ALICJA; get CBCon 01-11-2016 Smoking cessation education (procedure) yes Invalid Interpretation Code [facility] Work Phone: [phone] Lab Report: Myoglobin, Urine on 01-09-2016 Myoglobin (U) [Mass/Vol] < 2 ng/mL Invalid Interpretation Code 0-13 [facility] Work Phone: Lab Report: Basic Metabolic Profile (BMP)on 01-07-2016 Anion gap 8 mmol/L Invalid Interpretation Code 5-15 [facility] Work Phone: [phone] Anion gap [Moles/Vol] 8 mmol/L Invalid Interpretation Code 5-15 [facility] Work Phone: [phone] BUN/Creatinine Ratio 13.7 RATIO Invalid Interpretation Code 10-20 [facility] Work Phone: [phone] Calcium [Mass/Vol] 8.3 mg/dL Low 8.5-10.1 [facility] Work Phone: calculated corrected value of creatinine clearance with body surface area 71.51 mL/min Invalid Interpretation Code [facility] Work Phone: Chloride [Moles/Vol] 110 mmol/L High 98-[address] [facility] [address] [facility] Work Phone: [phone] CO2 25.0 mmol/L Invalid Interpretation Code 21.0-32.0 [facility] Work Phone: [phone] CO2 (BldV) [Partial pressure] 25.0 mmol/L Invalid Interpretation Code 21.0-32.0 [facility] Work Phone: [phone] Creatinine 71.51 mL/min Invalid Interpretation Code [facility] Work Phone: [phone] Creatinine [Mass/Vol] 1.17 mg/dL Invalid Interpretation Code 0.70-1.30 [facility] Work Phone: [phone] eGFR (non-black) 82 mL/min/{1.73_m2} Invalid Interpretation Code >60 [facility] Work Phone: [phone] GFR/1.73 sq M.predicted among non-blacks MDRD (S/P/Bld) [Vol rate/Area] 67 mL/min/{1.73_m2} Invalid Interpretation Code >60 [facility] Work Phone: Glomerular Filtration rate 82 mL/min Invalid Interpretation Code >60 [facility] Work Phone: Glucose [Mass/Vol] 98 mg/dL Invalid Interpretation Code 70-110 [facility] Work Phone: Potassium [Moles/Vol] 4.1 mmol/L Invalid Interpretation Code 3.5-5.1 [facility] Work Phone: Sodium [Moles/Vol] 143 mmol/L Invalid Interpretation Code 136-145 [facility] Work Phone: Urea nitrogen [Mass/Vol] 16 mg/dL Invalid Interpretation Code 7-18 [facility] Work Phone: Urea nitrogen/Creatinine [Mass ratio] 13.6665763 mg/mg Invalid Interpretation Code 10-20 [facility] Work Phone: Lab Report: CBC W/Diff, Auto matedon 01-07-2016 Pathologist Cyto stain Nom (Cvx/Vag) [ID] May foll Invalid Interpretation Code [facility] Work Phone: Microbiology: Culture, Blood (WB)on 01-07-2016 Bacteria identified Cx Nom (Bld) BC No growth in 5 days. Invalid Interpretation Code [facility] Work Phone: Replaced Document: (P) CBC W /Diff, Automatedon 01-07-2016 CELLS COUNTED 100 Invalid Interpretation Code MANUAL DIFF [facility] Work Phone: [phone] Metamyelocytes/100 leukocytes 4 % High 0-1 [facility] Work Phone: [phone] Metamyelocytes/100 WBC (Bld) 4 % High 0-1 [facility] Work Phone: Myelocytes (Bld) [#/Vol] 1 (?) High 0-0 [facility] Work Phone: Segmented Neutrophils/100 leukocytes 85 % High 47-70 [facility] Work Phone: Segmented neutrophils/100 WBC (Bld) 85 % High 47-70 [facility] Work Phone: total cells counted, blood 100 Invalid Interpretation Code MANUAL DIFF [facility] Work Phone: TOXIC GRAN 1+ Invalid Interpretation Code [facility] Work Phone: toxic granulation, blood 1+ Invalid Interpretation Code [facility] Work Phone: [phone] Lab Report: CBC W/Diff, Auto matedon 01-06-2016 Band form neutrophils (Bld) [#/Vol] 4 % Invalid Interpretation Code 0-5 [facility] Work Phone: [phone] Blasts/100 WBC (Bld) 1 % Critically high 0-0 [facility] Work Phone: Eosinophils/100 leukocytes 2 % Invalid Interpretation Code 0-5 [facility] Work Phone: [phone] Eosinophils/100 WBC (Bld) 2 % Invalid Interpretation Code 0-5 [facility] Work Phone: [phone] Hypochromia presence 1+ Invalid Interpretation Code [facility] Work Phone: [phone] Hypochromia Ql (Bld) 1+ Invalid Interpretation Code [facility] Work Phone: Platelets LM Ql (Bld) ADEQUATE Invalid Interpretation Code A[facility]Q [facility] Work Phone: Promyelocytes (Bld) [#/Vol] 1 (?) High 0-0 [facility] Work Phone: [phone] Replaced Document: CBC W/Dif f, Automatedon 01-05-2016 GE use only - for [employer] import when terms are not otherwise specified 5 % Invalid Interpretation Code [facility] Work Phone: [phone] PLASMA CELL 5 % Invalid Interpretation Code [facility] Work Phone: [phone] RBC morphology finding Nom (Bld) NORM C+C Invalid Interpretation Code NORM C AND C [facility] Work Phone: Lab Report: CPK Total, Creat ine Kinaseon 01-04-2016 CK [Catalytic activity/Vol] 61 U/L Invalid Interpretation Code 39-308 [facility] Work Phone: Lab Report: Prealbuminon Prealbumin 4.8 mg/dL Low 20.0-40.0 [facility] Work Phone: [phone] Prealbumin Elph [Mass/Vol] 4.8 mg/dL Low 20.0-40.0 [facility] Work Phone: Lab Report: (P) Urinalysis, Completeon 01-03-2016 Albumin Ql (U) 30 High Negative [facility] Work Phone: Bilirubin Ql (U) 1 High Negative [facility] Work Phone: Clarity (U) Clear Invalid Interpretation Code Clear [facility] Work Phone: Color (U) Yellow Invalid Interpretation Code Yellow [facility] Work Phone: Glucose Ql (U) Normal mg/dl Invalid Interpretation Code Normal [facility] Work Phone: Ketones (U) [Mass/Vol] Negative Invalid Interpretation Code Negative [facility] Work Phone: Leukocyte esterase Test strip Ql (U) 25 High Negative [facility] Work Phone: NITRITE UR Negative Invalid Interpretation Code Negative [facility] Work Phone: [phone] Occult Blood, urine 10 High Negative [facility] Work Phone: OCCULT BLOOD-UR 10 High Negative [facility] Work Phone: [phone] pH (U) 5.0 [pH] Invalid Interpretation Code 5.0 - 8.0 [facility] Work Phone: Specific gravity Refractometry (U) [Rel density] 1.015 Invalid Interpretation Code 1.002-1.030 [facility] Work Phone: Urine, ketones presence Negative Invalid Interpretation Code Negative [facility] Work Phone: [phone] Urine, pH 5.0 [pH] Invalid Interpretation Code 5.0 - 8.0 [facility] Work Phone: [phone] Urine, protein 30 mg/dL High Negative [facility] Work Phone: [phone] UROBILI 8 mg/dL High Normal [facility] Work Phone: [phone] Lab Report: Creatinine, Urin e (random)on 01-03-2016 Creatinine (U) [Mass/Vol] 164.00 mg/dL Invalid Interpretation Code NO RANGE EST. [facility] Work Phone: Lab Report: Urinalysis, Comp leteon 01-03-2016 AMORPHOUS 2+ Invalid Interpretation Code [facility] Work Phone: [phone] Bacteria LM.HPF (Urine sed) [#/Area] 0 /[HPF] Invalid Interpretation Code None Seen [facility] [address] Work Phone: [phone] Epithelial cells LM.HPF (Urine sed) [#/Area] 0-5 SEEN Invalid Interpretation Code 0-5 [facility] Work Phone: Mucus Ql (Urine sed) 0 SEEN Invalid Interpretation Code [place] Work Phone: RBC LM.HPF (Urine sed) [#/Vol] 0 SEEN Invalid Interpretation Code 0-5 [facility] Work Phone: [phone] Urinalysis, white blood cells, culture and sensitivity 5-10 SEEN Invalid Interpretation Code 0-5 [facility] Work Phone: Urine, mucus presence in sediment 0 SEEN Invalid Interpretation Code [facility] Work Phone: [phone] WBC (Leukocytes) 5-10 SEEN Invalid Interpretation Code 0-5 [facility] Work Phone: [phone] Lab Report: Urine Sodiumon 0 01-03-2016 Sodium (U) [Moles/Vol] mmol/L Invalid Interpretation Code Not Establ. [facility] Work Phone: [phone] Urine, sodium mmol/L Invalid Interpretation Code Not Establ. [facility] Work Phone: [phone] Lab Report: CBC W/Diff, Auto matedon 08-17-2015 Absolute Lymphocytes 1.42 X10 3/UL Invalid Interpretation Code 0.83-4.51 [facility] Work Phone: Absolute Neut 3.4 X10 3/UL Invalid Interpretation Code 2.0-7.7 [facility] Work Phone: [phone] Absolute Neutrophil count 3.4 X10 3/UL Invalid Interpretation Code 2.0-7.7 [facility] Work Phone: [phone] Lymphocytes 1.42 X10 3/UL Invalid Interpretation Code 0.83-4.51 [facility] Work Phone: [phone] Lab Report: BNP,B-Type NATRI URETIC PEPTIDEon 03-25-2015 Natriuretic peptide B (Bld) [Mass/Vol] 28.1 pg/mL Invalid Interpretation Code 0-100 [facility] Work Phone: Lab Report: Magnesiumon Magnesium [Mass/Vol] 2.1 mg/dL Invalid Interpretation Code 1.8-2.4 [facility] Work Phone: Lab Report: Thyroid Stim Hor froy (TSH)on 01-10-2015 Thyroid stimulating hormone (TSH) 1.49 u[iU]/mL Invalid Interpretation Code 0.358-3.74 [facility] Work Phone: [phone] TSH Qn 1.49 m[IU]/L Invalid Interpretation Code 0.358-3.74 [facility] Work Phone: Office Visit: [facility] 01-10-20 15 cardiac risk group C Invalid Interpretation Code [facility] Work Phone: General cardiovascular disease 10Y risk [#] [place].Jatin'Agojim N/A Invalid Interpretation Code [facility] Work Phone: Replaced Document: Avinashmark E CG Observationson 07-16-2014 EKG QRS axis -39 deg Invalid Interpretation Code [facility] Work Phone: [phone] electrocardiogram interpretation Sinus Rhythm -Left axis -anterior fascicular block. -Anteroseptal infarct -age undetermined. ABNORMAL Invalid Interpretation Code [facility] Work Phone: Heart rate 63 /min Invalid Interpretation Code [facility] Work Phone: Interpretation Sinus Rhythm -Left axis -anterior fascicular block. -Anteroseptal infarct -age undetermined. ABNORMAL Invalid Interpretation Code [facility] Work Phone: P Temple 59 deg Invalid Interpretation Code [facility] Work Phone: P wave axis, electrocardiogram 59 deg Invalid Interpretation Code [facility] Work Phone: IN Interval 146 ms Invalid Interpretation Code [facility] Work Phone: IN interval, electrocardiogram 146 ms Invalid Interpretation Code [facility] Work Phone: QRS axis, electrocardiogram -39 deg Invalid Interpretation Code [facility] Work Phone: QRS Duration 96 ms Invalid Interpretation Code [facility] Work Phone: QRS duration, electrocardiogram 96 ms Invalid Interpretation Code [facility] Work Phone: QT Interval new path ms Invalid Interpretation Code [facility] Work Phone: QT interval, electrocardiogram new path ms Invalid Interpretation Code [facility] Work Phone: T Temple 42 deg Invalid Interpretation Code [facility] Work Phone: T wave axis, electrocardiogram 42 deg Invalid Interpretation Code [facility] Work Phone: Lab Report: TROP - copyon Troponin I.cardiac [Mass/Vol] 0.02 ng/mL Normal <0.06 [facility] Work Phone: Lab Report: LIPIDon 05-08-20 13 Lipoprotein.pre-beta [Mass/Vol] 18 mg/dL Normal 5-40 [facility] Work Phone: [phone] Lab Report: LIVERon 05-08-20 13 Albumin [Mass/Vol] 3.7 g/dL Normal 3.4-5.0 [facility] Work Phone: Alkaline phosphatase (ALP) 97 U/L Normal 50-136 [facility] Work Phone: ALP (Bld) [Catalytic activity/Vol] 97 U/L Normal 50-136 [facility] Work Phone: ALT [Catalytic activity/Vol] 26 U/L Normal 12-78 [facility] Work Phone: AST [Catalytic activity/Vol] 17 U/L Normal 15-37 [facility] Work Phone: Bilirubin [Mass/Vol] 0.60 mg/dL Normal 0.00-1.[address] [facility] [address] [facility] Work Phone: Bilirubin.direct [Mass/Vol] 0.12 mg/dL Normal 0.00-0.30 [facility] Work Phone: Replaced Document: Margy OLIVEIRA Observationson 04-20-2013 Pulse (Heart Rate) 380 ms Invalid Interpretation Code [facility] Work Phone: [phone] QT interval/QT interval (corrected for heart rate), electrocardiogram 380 ms Invalid Interpretation Code [facility] Work Phone: Lab Report: PTon 08-11-2010 INR Coag (PPP) [Relative time] 1.0 {INR} Normal [facility] Work Phone: prothrombin time, actual/normal, ratio 10.8 SECONDS Normal 9.1-11.7 [facility] Work Phone: Vital Signs Date Time Vital Sign Value Performing Clinician Facility 05-09-2025 02:53-0400 Body temperature 98.2 [degF] Dr. Speedy Boswell MD Work Phone: [facility] 05-09-2025 02:53-0400 Diastolic blood pressure 82 mm[Hg] Dr. Speedy Boswell MD Work Phone: [facility] 05-09-2025 02:53-0400 Heart rate 57 /min Dr. Speedy Boswell MD Work Phone: [facility] 05-09-2025 02:53-0400 Respiratory rate 16 /min Dr. Speedy Boswell MD Work Phone: [facility] 05-09-2025 02:53-0400 SaO2% (BldA) [Mass fraction] 97 % Dr. Speedy Boswell MD Work Phone: [phone] [place] [address] 05-09-2025 02:53-0400 Systolic blood pressure 104 mm[Hg] Dr. Speedy Boswell MD Work Phone: [phone] [place] [address] 05-09-2025 00:02-0400 Body height 170.[address] Speedy Boswell MD Work Phone: [phone] [place] [address] 05-09-2025 00:02-0400 Body mass index (BMI) [Ratio] 48 kg/m2 Dr. Speedy Boswell MD Work Phone: [phone])[phone] [place] [address] 05-09-2025 00:02-0400 Body weight 139.[address] Speedy Boswell MD Work Phone: [phone] [place] [address] 05-03-2025 11:28-0400 Body height 170.[address] Speedy Boswell MD Work Phone: [phone])031-883697 [place] [address] 05-03-2025 11:28-0400 Body mass index (BMI) [Ratio] 46 kg/m2 Dr. Speedy Boswell MD Work Phone: 2(910)[phone] [place] [address] 05-03-2025 11:28-0400 Body weight 133.[address] Speedy Boswell MD Work Phone: [phone] [place] [address] 05-03-2025 11:28-0400 Diastolic blood pressure 57 mm[Hg] Dr. Speedy Boswell MD Work Phone: [phone] [place] [address] 05-03-2025 11:28-0400 Heart rate 57 /min Dr. Speedy Boswell MD Work Phone: [phone])793-969533 [place] [address] 05-03-2025 11:28-0400 Respiratory rate 18 /min Dr. Speedy Boswell MD Work Phone: [phone] [place] [address] 05-03-2025 11:28-0400 Systolic blood pressure 101 mm[Hg] Dr. Speedy Boswell MD Work Phone: 2([phone])684-659797 [place] [address] 03-30-2024 14:12-0400 Body height 180.3 cm Kel Nielsen MD Work Phone: [facility] 03-30-2024 14:12-0400 Body mass index (BMI) [Ratio] 38.77 kg/m2 Kel Nielsen MD Work Phone: [facility] 03-30-2024 14:12-0400 Body weight 126.1 kg Kel Nielsen MD Work Phone: [facility] 01-07-2024 06:15-0500 Body temperature 97.11 [degF] David Ramirez MD Work Phone: [facility] 01-07-2024 06:15-0500 Diastolic blood pressure 63 mm[Hg] David Ramirez MD Work Phone: [phone] [address] 01-07-2024 06:15-0500 Heart rate 70 /min David Ramirez MD Work Phone: 5([phone] [place] [address] 01-07-2024 06:15-0500 Respiratory rate 18 /min David Ramirez MD Work Phone: [phone])[phone] [place] [address] 01-07-2024 06:15-0500 SaO2% (BldA) [Mass fraction] 93 % David Ramirez MD Work Phone: [facility] 01-07-2024 06:15-0500 Systolic blood pressure 109 mm[Hg] David Ramirez MD Work Phone: [facility] 01-06-2024 07:48-0500 Body height 170.2 cm David Ramirez MD Work Phone: [phone] [place] [address] 01-06-2024 07:48-0500 Body mass index (BMI) [Ratio] 46.05 kg/m2 David Ramirez MD Work Phone: [facility] 01-06-2024 07:48-0500 Body weight 133.36 kg David Ramirez MD Work Phone: [phone] [place] [address] 10-30-2023 15:12-0500 Body height 172.[address] Speedy Boswell Work Phone: [facility] 10-30-2023 15:12-0500 Body mass index (BMI) [Ratio] 44.6 kg/m2 Dr. Speedy Boswell Work Phone: [facility] 10-30-2023 15:12-0500 Body weight 133.[address] Speedy Boswell Work Phone: [facility] 10-30-2023 15:12-0500 Diastolic blood pressure 70 mm[Hg] Dr. Speedy Boswell Work Phone: [facility] 10-30-2023 15:12-0500 Heart rate 60 /min Dr. Speedy Boswell Work Phone: [facility] 10-30-2023 15:12-0500 Respiratory rate 18 /min Dr. Speedy Boswell Work Phone: [facility] 10-30-2023 15:12-0500 Systolic blood pressure 111 mm[Hg] Dr. Speedy Boswell Work Phone: [facility] 09-10-2023 14:36-0400 Body height 172.[address] Speedy Boswell Work Phone: [facility] 09-10-2023 14:36-0400 Diastolic blood pressure 75 mm[Hg] Dr. Speedy Boswell Work Phone: [facility] 09-10-2023 14:36-0400 Heart rate 60 /min Dr. Speedy Boswell Work Phone: [facility] 09-10-2023 14:36-0400 Respiratory rate 20 /min Dr. Speedy Boswell Work Phone: [facility] 09-10-2023 14:36-0400 Systolic blood pressure 116 mm[Hg] Dr. Speedy Boswell Work Phone: [facility] 08-26-2023 15:31-0400 Body height 180.3 cm Kel Nielsen MD Work Phone: [facility] 08-26-2023 15:31-0400 Body mass index (BMI) [Ratio] 38.77 kg/m2 Kel Nielsen MD Work Phone: [facility] 08-26-2023 15:31-0400 Body weight 126.1 kg Kel Nielsen MD Work Phone: [facility] 02-11-2023 15:35-0400 Body height 180.3 cm Kel Nielsen MD Work Phone: [facility] 02-11-2023 15:35-0400 Body mass index (BMI) [Ratio] 38.77 kg/m2 Kel Nielsen MD Work Phone: [facility] 02-11-2023 15:35-0400 Body weight 126.1 kg Kel Nielsen MD Work Phone: [facility] 02-11-2023 15:35-0400 Diastolic blood pressure 73 mm[Hg] Kel Nielsen MD Work Phone: [facility] 02-11-2023 15:35-0400 Systolic blood pressure 116 mm[Hg] Kel Nielsen MD Work Phone: [facility] 10-27-2022 20:07-0500 Diastolic blood pressure 74 mm[Hg] Dr. Speedy Boswell Work Phone: [facility] 10-27-2022 20:07-0500 Heart rate 76 /min Dr. Speedy Boswell Work Phone: [facility] 10-27-2022 20:07-0500 Respiratory rate 19 /min Dr. Speedy Boswell Work Phone: [facility] 10-27-2022 20:07-0500 SaO2% (BldA) [Mass fraction] 95 % Dr. Speedy Boswell Work Phone: [facility] 10-27-2022 20:07-0500 Systolic blood pressure 110 mm[Hg] Dr. Speedy Boswell Work Phone: [facility] 10-27-2022 16:09-0500 Body height 172.[address] Speedy Boswell Work Phone: [facility] 10-27-2022 16:09-0500 Body mass index (BMI) [Ratio] 43.2 kg/m2 Dr. Speedy Boswell Work Phone: [facility] 10-27-2022 16:09-0500 Body temperature 98.1 [degF] Dr. Speedy Boswell Work Phone: [facility] 10-27-2022 16:09-0500 Body weight 128.[address] Speedy Boswell Work Phone: [facility] 08-20-2022 13:26-0400 Body height 180.[address] Speedy Boswell Work Phone: [facility] Work Phone: 08-20-2022 13:26-0400 Body mass index (BMI) [Ratio] 39.6 kg/m2 Dr. Speedy Boswell Work Phone: [facility] Work Phone: 08-20-2022 13:26-0400 Body weight 128.[address] Speedy Boswell Work Phone: [facility] Work Phone: 08-20-2022 13:26-0400 Diastolic blood pressure 55 mm[Hg] Dr. Speedy Boswell Work Phone: [facility] Work Phone: 08-20-2022 13:26-0400 Heart rate 60 /min Dr. Speedy Boswell Work Phone: [facility] Work Phone: 08-20-2022 13:26-0400 Respiratory rate 18 /min Dr. Speedy Boswell Work Phone: [facility] Work Phone: 08-20-2022 13:26-0400 Systolic blood pressure 111 mm[Hg] Dr. Speedy Boswell Work Phone: [facility] Work Phone: 08-09-2022 14:24-0400 Body mass index (BMI) [Ratio] 39.6 kg/m2 Dr. Speedy Boswell Work Phone: [facility] Work Phone: 08-09-2022 14:24-0400 Body weight 128.[address] Speedy Boswell Work Phone: [facility] Work Phone: 02-05-2022 11:38-0500 Body height 180.[address] Speedy Boswell Work Phone: [facility] Work Phone: 02-05-2022 11:38-0500 Body weight 135.[address] Speedy Boswell Work Phone: [facility] Work Phone: 02-05-2022 11:38-0500 Diastolic blood pressure 73 mm[Hg] Dr. Speedy Boswell Work Phone: [facility] Work Phone: 02-05-2022 11:38-0500 Heart rate 66 /min Dr. Speeyd Boswell Work Phone: [facility] Work Phone: 02-05-2022 11:38-0500 Respiratory rate 18 /min Dr. Speedy Boswell Work Phone: [facility] Work Phone: 02-05-2022 11:38-0500 SaO2% (BldA) [Mass fraction] 97 % Dr. Speedy Boswell Work Phone: [facility] Work Phone: 02-05-2022 11:38-0500 Systolic blood pressure 125 mm[Hg] Dr. Speedy Boswell Work Phone: [facility] Work Phone: 02-05-2022 10:38-0500 Body height 180.[address] Speedy Boswell Work Phone: [facility] Work Phone: 02-05-2022 10:38-0500 Body weight 135.[address] Speedy Boswell Work Phone: [facility] Work Phone: 02-05-2022 10:38-0500 Diastolic blood pressure 73 mm[Hg] Dr. Speedy Boswell Work Phone: [facility] Work Phone: 02-05-2022 10:38-0500 Heart rate 66 /min Dr. Speedy Boswell Work Phone: [facility] Work Phone: 02-05-2022 10:38-0500 Respiratory rate 18 /min Dr. Speedy Boswell Work Phone: [facility] Work Phone: 02-05-2022 10:38-0500 SaO2% (BldA) [Mass fraction] 97 % Dr. Speedy Boswell Work Phone: [facility] Work Phone: 02-05-2022 10:38-0500 Systolic blood pressure 125 mm[Hg] Dr. Speedy Boswell Work Phone: [facility] Work Phone: 01-15-2022 23:03-0500 Diastolic blood pressure 62 mm[Hg] Dr. Speedy Boswell Work Phone: [facility] Work Phone: 01-15-2022 23:03-0500 Systolic blood pressure 118 mm[Hg] Dr. Speedy Boswell Work Phone: [facility] Work Phone: 01-15-2022 19:47-0500 Body mass index (BMI) [Ratio] 41 kg/m2 Dr. Speedy Boswell Work Phone: [facility] Work Phone: 01-15-2022 19:47-0500 Body temperature 98 [degF] Dr. Speedy Boswell Work Phone: [facility] Work Phone: 01-15-2022 19:47-0500 Body weight 133.[address] Speedy Boswell Work Phone: [facility] Work Phone: 01-15-2022 19:47-0500 Heart rate 71 /min Dr. Speedy Boswell Work Phone: [facility] Work Phone: 01-15-2022 19:47-0500 Respiratory rate 15 /min Dr. Speedy Boswell Work Phone: [facility] Work Phone: 01-15-2022 19:47-0500 SaO2% (BldA) [Mass fraction] 99 % Dr. Speedy Boswell Work Phone: [facility] Work Phone: 06-01-2021 00:25-0400 Body temperature 97.81 [degF] Roni Figueroa MD Work Phone: [facility] Work Phone: 06-01-2021 00:25-0400 Diastolic blood pressure 93 mm[Hg] Roni Figueroa MD Work Phone: [facility] Work Phone: 06-01-2021 00:25-0400 Heart rate 82 /min Roni Figueroa MD Work Phone: [facility] Work Phone: 06-01-2021 00:25-0400 Respiratory rate 17 /min Roni Figueroa MD Work Phone: [facility] Work Phone: 06-01-2021 00:25-0400 SaO2% (BldA) [Mass fraction] 98 % Roni Figueroa MD Work Phone: [facility] Work Phone: 06-01-2021 00:25-0400 Systolic blood pressure 155 mm[Hg] Roni Figueroa MD Work Phone: [facility] Work Phone: 05-24-2021 00:05-0400 Body height 180.3 cm Roni Figueroa MD Work Phone: [facility] Work Phone: 05-24-2021 00:05-0400 Body mass index (BMI) [Ratio] 38.77 kg/m2 Roni Figueroa MD Work Phone: [facility] Work Phone: 05-24-2021 00:05-0400 Body weight 126.1 kg Roni Figueroa MD Work Phone: [facility] Work Phone: 03-22-2021 14:14-0400 Body mass index (BMI) [Ratio] 41 kg/m2 Dr. Speedy Boswell Work Phone: [facility] Work Phone: 03-22-2021 14:14-0400 Body mass index (BMI) [Ratio] 41 kg/m2 Dr. Speedy Boswell Work Phone: [facility] Work Phone: 07-03-2017 08:47-0400 Body height 181.61 cm Lowell Otero MD [facility] Work Phone: 07-03-2017 08:47-0400 Body mass index (BMI) [Ratio] 44.75 kg/m2 Lowell Otero MD [facility] Work Phone: 07-03-2017 08:47-0400 Body surface area Derived from formula 2.61 m2 Lowell Otero MD [facility] Work Phone: 07-03-2017 08:47-0400 Body temperature 96.9 [degF] Lowell Otero MD [facility] Work Phone: 07-03-2017 08:47-0400 Body weight 147.6 kg Lowell Otero MD [facility] Work Phone: 07-03-2017 08:47-0400 Diastolic blood pressure 81 mm[Hg] Lowell Otero MD [facility] Work Phone: 07-03-2017 08:47-0400 Heart rate 64 /min Lowell Otero MD [facility] Work Phone: 07-03-2017 08:47-0400 Respiratory rate 18 /min Lowell Otero MD [facility] Work Phone: 07-03-2017 08:47-0400 Systolic blood pressure 129 mm[Hg] Lowell Otero MD [facility] Work Phone: 07-03-2017 08:47-0400 Weight 147.6 kg Peg Deng RN [facility] Work Phone: 06-19-2017 10:56-0400 Body height 181.61 cm Cary George MD Work Phone: [facility] Work Phone: 06-19-2017 10:56-0400 Body mass index (BMI) [Ratio] 44 kg/m2 Cary George MD Work Phone: [facility] Work Phone: 06-19-2017 10:56-0400 Body temperature 97.2 [degF] Cary George MD Work Phone: [facility] Work Phone: 06-19-2017 10:56-0400 Body weight 145.15 kg Cary George MD Work Phone: [facility] Work Phone: 06-19-2017 10:56-0400 Diastolic blood pressure 76 mm[Hg] Cary George MD Work Phone: [facility] Work Phone: 06-19-2017 10:56-0400 Heart rate 75 /min Cary George MD Work Phone: [facility] Work Phone: 06-19-2017 10:56-0400 Respiratory rate 18 /min Cary George MD Work Phone: [facility] Work Phone: 06-19-2017 10:56-0400 Systolic blood pressure 106 mm[Hg] Cary George MD Work Phone: [facility] Work Phone: 06-14-2017 13:20-0400 Body height 181.61 cm [facility] Work Phone: 06-14-2017 13:20-0400 Body mass index (BMI) [Ratio] 44.91 kg/m2 Peg Deng RN [facility] Work Phone: 06-14-2017 13:20-0400 Body weight 148.15 kg Peg Deng RN [facility] Work Phone: 06-14-2017 13:20-0400 Diastolic blood pressure 64 mm[Hg] Peg Deng RN [facility] Work Phone: 06-14-2017 13:20-0400 Heart [...] 12:15-0400 Body temperature 97.8 [degF] Rizwana Alex ACTIVITIES MANAGER [facility] Work Phone: 05-23-2017 12:15-0400 Body weight 145.06 kg Rizwana Aelx CHAIREZ [facility] Work Phone: 05-23-2017 12:15-0400 Diastolic blood pressure 56 mm[Hg] Rizwana Johnson ACTIVITIES MANAGER [facility] Work Phone: 05-23-2017 12:15-0400 Heart rate 69 /min Rizwana Alex CHAIREZ [facility] Work Phone: 05-23-2017 12:15-0400 Respiratory rate 20 /min Rizwana Alex ACTIVITIES MANAGER [facility] Work Phone: 05-23-2017 12:15-0400 SaO2% (BldA) [Mass fraction] 98 % Rizwana Johnson ACTIVITIES MANAGER [facility] Work Phone: 05-23-2017 12:15-0400 Systolic blood pressure 113 mm[Hg] Rizwana Alex ACTIVITIES MANAGER [facility] Work Phone: 05-15-2017 10:40-0400 Body surface area Derived from formula 2.61 m2 Rizwana Johnson LPN [facility] Work Phone: 05-01-2017 09:51-0400 Body mass index (BMI) [Ratio] 44.86 kg/m2 Arlene Signs [facility] Work Phone: 05-01-2017 09:51-0400 Body temperature 96.7 [degF] Arlene Signs [facility] Work Phone: 05-01-2017 09:51-0400 Body weight 147.96 kg Arlene Signs [facility] Work Phone: 05-01-2017 09:51-0400 Diastolic blood pressure 66 mm[Hg] Arlene Signs [facility] Work Phone: 05-01-2017 09:51-0400 Heart rate 61 /min Arlene Signs [facility] Work Phone: 05-01-2017 09:51-0400 SaO2% (BldA) [Mass fraction] 100 % Arlene Signs [facility] Work Phone: 05-01-2017 09:51-0400 Systolic blood pressure 110 mm[Hg] Arlene Signs [facility] Work Phone: 04-03-2017 10:29-0400 Body height 181.61 cm Arlene Signs [facility] Work Phone: 04-03-2017 10:29-0400 Body mass index (BMI) [Ratio] 44.39 kg/m2 Arlene Signs [facility] Work Phone: 04-03-2017 10:29-0400 Body temperature 97.2 [degF] Arlene Signs [facility] Work Phone: 04-03-2017 10:29-0400 Body weight 146.42 kg Arlene Signs [facility] Work Phone: 04-03-2017 10:29-0400 Diastolic blood pressure 61 mm[Hg] Arlene Signs [facility] Work Phone: 04-03-2017 10:29-0400 Heart rate 64 /min Arlene Signs [facility] Work Phone: 04-03-2017 10:29-0400 Respiratory rate 22 /min Arlene Signs [facility] Work Phone: 04-03-2017 10:29-0400 SaO2% (BldA) [Mass fraction] 97 % Arlene Tavarez MD [facility] Work Phone: 04-03-2017 10:29-0400 Systolic blood pressure 96 mm[Hg] Arlene Tavarez MD [facility] Work Phone: 12-14-2016 13:36-0500 Body surface area Derived from formula 2.61 m2 Arlene Tavarez MD [facility] Work Phone: Encounters Encounter Date Encounter Type Care Provider Facility Start: 06-24-2025 End: 06-24-[address] Jm Anguiano MD -[facility] Work Phone: Start: 06-24-2025 End: 06-24-[address] Speedy Boswell MD Work Phone: -[facility] Start: 06-10-2025 ambulatory Delilah Foster Facility:[facility] Start: 06-10-2025 Non-patient / Non-visit Dr. Delilah simpson MD -[facility] Start: 06-10-2025 End: 06-10-[address] Speedy Boswell MD Work Phone: -[facility] Start: 06-10-2025 End: 06-10-[address] Delilah Foster MD -[facility] Work Phone: Start: 06-10-2025 End: 06-10-2025 ambulatory Delilah Hernando Facility:[facility] Start: 06-07-2025 End: 06-07-[address] Speedy Boswell MD Work Phone: -[facility] Start: 06-07-2025 End: 06-07-[address] Speedy Boswell MD -[facility] Start: 06-07-2025 End: 06-07-2025 ambulatory Speedy Boswell Facility:[facility] Start: 05-20-2025 End: 05-20-[address] Speedy Boswell MD Work Phone: -[facility] Start: 05-20-2025 End: 05-20-[address] Ge Tomlinson MD -[facility] Work Phone: Start: 05-12-2025 End: 05-12-[address] Speedy Boswell MD Work Phone: [facility] Work Phone: Start: 05-12-2025 End: 05-12-[address] Speedy Boswell MD -[facility] Start: 05-12-2025 End: 05-12-2025 ambulatory Speedy Boswell Facility:[facility] Start: 05-09-2025 End: 05-09-2025 Emergency department patient visit Dr. Speedy Boswell MD Work Phone: -Emergency Department Work Phone: Start: 05-03-2025 End: 05-03-[address] Delilah Foster MD -[facility] Work Phone: Start: 05-03-2025 End: 05-03-[address] Speedy Boswell MD Work Phone: [facility] Work Phone: Start: 02-18-2025 End: 02-18-2025 ambulatory Ge Tomlinson Facility:[facility] Start: 02-18-2025 End: 02-18-[address] Ge Tomlinson MD -[facility] Work Phone: Start: 02-04-2025 End: 02-04-2025 ambulatory Ge Tomlinson Facility:[facility] Start: 02-04-2025 End: 02-04-[address] Ge Tomlinson MD -[facility] Work Phone: Start: 01-25-2025 End: 01-25-2025 ambulatory Ge Tomlinson Facility:[facility] Start: 01-25-2025 End: 01-25-[address] Ge Tomlinson MD -[facility] Work Phone: Start: 12-11-2024 End: 12-11-2024 ambulatory Speedy Boswell Facility:[facility] Start: 11-19-2024 End: 11-19-2024 ambulatory Ge Tomlinson Facility:[facility] Start: 11-18-2024 End: 11-18-2024 ambulatory Manololuke Holder Facility:[facility] Start: 11-04-2024 End: 11-04-2024 ambulatory Speedy Boswell Facility:[facility] [place] [place] Start: 10-26-2024 End: 10-26-2024 Emergency department patient visit Speedy Boswell Facility:[facility] Start: 10-20-2024 End: 10-21-2024 Emergency department patient visit Speedy Boswell Facility:[facility] Start: 09-10-2024 End: 09-10-2024 ambulatory Speedy Bosewll Facility:[facility] Start: 08-01-2024 End: 08-01-2024 ambulatory Speedy Boswell Facility:[facility] Start: 06-29-2024 End: 06-29-2024 Emergency department patient visit Speedy Boswell Facility:[facility] Start: 03-30-2024 End: 03-30-2024 ambulatory KEL NIELSEN [facility] Start: 03-30-2024 End: 03-30-2024 Patient encounter procedure Kel Nielsen MD Work Phone: [facility] Comment on above: Arthritis of left rivera btalar joint Start: 03-05-2024 End: 03-05-[address] Speedy Boswell Work Phone: [facility] Work Phone: Start: 03-05-2024 End: 03-05-[address] Speedy Boswell Work Phone: [facility]-Radiology, [facility] Work Phone: Start: 01-20-2024 End: 01-20-[address] Speedy Boswell Work Phone: [facility] Work Phone: Start: 01-16-2024 End: 01-16-[address] Speedy Boswell Work Phone: [facility] Work Phone: Start: 01-16-2024 End: 01-16-[address] [facility] Start: 01-06-2024 End: 01-07-2024 ambulatory SPEEDY BOSWELL Facility:[facility] Start: 01-06-2024 End: 01-07-2024 Subsequent hospital visit by physician David Ramirez MD Work Phone: [facility] Comment on above: Pacemaker lead malfu nction Start: 11-28-2023 End: 11-28-[address] Speedy Boswell Work Phone: [facility] Work Phone: Start: 11-21-2023 End: 11-21-2023 ambulatory DAVID RAMIREZ Facility:[facility] Start: 11-21-2023 ambulatory CARMEN CHAVEZ [facility] y:[facility] Start: 11-21-2023 End: 11-21-2023 Subsequent hospital visit by physician Carmen Chavez MD Work Phone: [facility] Start: 11-01-2023 End: 11-01-[address] Speedy Boswell Work Phone: [facility] Work Phone: Start: 10-30-2023 End: 10-30-[address] Speedy Boswell Work Phone: [facility] Work Phone: Start: 09-24-2023 Non-patient / Non-visit Dr. Mika Boswell Work Phone: [facility] Work Phone: Start: 09-24-2023 Non-patient / Non-visit Dr. Mika Boswell Work Phone: [facility] Start: 09-24-2023 End: 09-24-[address] Speedy Boswell Work Phone: [facility] Work Phone: Start: 09-24-2023 End: 09-24-[address] Speedy Boswell Work Phone: [facility] Work Phone: Start: 09-11-2023 ambulatory [facility] Facility:[facility] Start: 09-10-2023 End: 09-10-[address] Speedy Boswell Work Phone: [facility] Work Phone: Start: 08-26-2023 End: 08-26-2023 ambulatory KEL NIELSEN [facility] Start: 08-26-2023 End: 08-26-2023 Patient encounter procedure Kel Nielsen MD Work Phone: [facility] Comment on above: Arthritis of left rivera btalar joint Start: 02-11-2023 End: 02-11-2023 Patient encounter procedure Kel Nielsen MD Work Phone: [facility] Comment on above: Arthritis of left rivera btalar joint Start: 01-17-2023 End: 01-17-[address] Speedy Boswell Work Phone: [facility] Work Phone: Start: 01-17-2023 End: 01-17-[address] Speedy Boswell Work Phone: [facility] Start: 11-20-2022 End: 11-20-[address] Speedy Boswell Work Phone: [facility] Start: 10-27-2022 End: 10-27-2022 Emergency department patient visit Dr. Speedy Boswell Work Phone: [facility]-Emergency Department Start: 08-29-2022 End: 08-29-[address] Speedy Boswell Work Phone: [facility] Work Phone: Start: 08-29-2022 End: 08-29-[address] Speedy Boswell Work Phone: [facility]Occ[facility]ational [facility] Start: 08-20-2022 End: 08-20-[address] Speedy Boswell Work Phone: [facility] Start: 08-09-2022 End: 08-09-[address] Speedy Boswell Work Phone: [facility] Start: 06-22-2022 End: 06-22-[address] [facility] Start: 06-20-2022 End: 06-20-[address] Speedy Boswell Work Phone: [facility] Start: 05-24-2022 End: 05-24-[address] Speedy Boswell Work Phone: [facility] Start: 05-22-2022 End: 05-22-[address] Speedy Boswell Work Phone: [facility] Start: 05-10-2022 End: 05-10-[address] Spedey Boswell Work Phone: [facility] Start: 02-15-2022 End: 02-15-[address] Speedy Boswell Work Phone: [facility] Start: 02-07-2022 End: 02-07-[address] Speedy Boswell Work Phone: [facility] Start: 02-05-2022 End: 02-05-[address] Speedy Boswell Work Phone: [facility] Start: 01-24-2022 End: 01-24-[address] Speedy Boswell Work Phone: [facility] Start: 01-15-2022 End: 01-16-2022 Emergency department patient visit Dr[facility] Start: 05-23-2021 End: 06-01-2021 Evaluation and management of inpatient Roni Figueroa MD Work Phone: [facility] Comment on above: Acute traumatic pain (Primary Dx) Start: 02-16-2011 End: 06-01-2016 Preoperative cardiovascular examination Arlene Signs [facility] Work Phone: Procedures Date Procedure Procedure Detail Performing Clinician Start: 06-10-2025 Cardiovascular stress test using pharmacologic stress agent Dr. Speedy Boswell MD Work Phone: Start: 05-12-2025 CT angiography of chest with [...] or Pulmonary Embolism (PE)CRITICAL VALUE CALLED TO [id number]/25 [id number] Beto Stark.RESULTS READ BACK BY SAME. Start: [...] Start: 01-07-2024 Assay of magnesium Rosio Douglass [employer] BU[employer]ER-[employer]ANCIAL ADMINISTRATION OFFICER Work Phone: Start: 01-06-2024 Radiologic exam chest 2 views Manuel Redd MD Work Phone: Start: 01-06-2024 Insj 1 transvns eltrd perm pacemaker/impltbl dfb David Ramirez MD Work Phone: Start: 01-06-2024 CBC AND ELECTRONIC DIFF Wilda Valle n [employer]IE BU[employer]ER-[employer]ANCIAL ADMINISTRATION OFFICER Work Phone: Start: 01-06-2024 Complete blood count with white cell differential, automated Wilda Eder Ashish TIE BU[employer]ER-FINANCIAL ADMINISTRATION OFFICER Work Phone: Start: 01-06-2024 Creatinine blood Wilda Eder Ashish TIE BU[employer]ER-FINANCIAL ADMINISTRATION OFFICER Work Phone: Start: 01-06-2024 Ecg routine ecg w/least 12 lds w/i&r Wilda Gaines Ashish [employer]IE BU[employer]ER-FINANCIAL ADMINISTRATION OFFICER Work Phone: Start: 11-21-2023 DEVICE EVALUATION Other [...] Boswell Work Phone: Start: 05-31-2021 COVID-19 Hamilton Silvaton TIE BUYER - ANIMAL GENETICIST Work Phone: Start: 05-29-2021 Dup-scan xtr veins complete bilateral study Hamilton Kam TIE BUYER - ANIMAL GENETICIST Work Phone: Start: 05-25-2021 Basic metabolic panel calcium total Sd Josh PA-C Work Phone: Start: 05-24-2021 OPERATIVE REPORT 3m Scanning Start: 05-24-2021 Radex humerus minimum 2 views Sd Josh PA-C Work Phone: Start: 05-24-2021 Radex elbow [...] Start: 06-01-2016 End: 06-22-2016 Nuclear stress test -[facility] Divina Giles PA-C Work Phone: [...] Other Divina Giles PA-C Work Phone: Start: 03-30-2015 End: 07-20-2015 [...] Khris Spencer MD Start: 04-17-2012 End: 04-17-2013 [employer] Khris Spencer MD Start: 04-17-2012 End: 04-17-2012 [...] Detail Author Start: 12-20-2033 Tetanus vaccination TETANUS [facility] Start: 05-09-2025 [facility] Start: 05-09-2025 [facility] Start: 01-07-2025 Potassium [Moles/volume] in Serum or Plasma POTASSIUM [facility] Start: 11-21-2024 Potassium [Moles/volume] in Serum or Plasma POTASSIUM [facility] Start: 08-02-2024 Influenza vaccination Influenza Vaccine (Season Ended) [facility] Start: 05-27-2024 DTaP/Tdap/Td vaccine (3 - Td or Tdap) DTaP/Tdap/Td vaccine (3 - Td or Tdap) [facility] Work Phone: Start: 05-27-2024 DTaP/Tdap/Td Vaccines (3 - Td or Tdap) DTaP/Tdap/Td Vaccines (3 - Td or Tdap) [facility] Start: 05-27-2024 Tetanus vaccination TETANUS [facility] Start: 12-04-2023 End: 12-04-2023 Admission to same day surgery center 12/04/2023 9:45 AM EST - 12/04/2023 12:15 PM EST Surgery Cardiovascular Imaging Lab [facility] [address] [place] [phone] Justin Pittman MD [address] [place] [phone] ICD Generator Changeout Cardiovascular Imaging Lab [facility] Comment on above: ICD Generator Changeout Start: 12-04-2023 Subsequent hospital visit by physician 12/04/2023 9:45 AM EST Hospital Encounter [facility]iology [facility] [address] [place] [address] 2[address] [place] [phone] Justin Pittman MD [address] [place] [phone] ICD (implantable cardioverter-defibrill ator) battery depletion [facility] Comment on above: ICD (implantable cardioverter-defibrilla tor) battery depletion Start: 12-02-2023 Medicare Advantage Annual Wellness Visit Medicare Advantage Annual Wellness Visit [facility] Start: 09-10-2023 Patient referral [facility] Work Phone: Start: 08-02-2023 COVID-19 Vaccine (5 - 2023-24 season) COVID-19 Vaccine ( season) [facility] Start: 08-02-2023 Influenza vaccination Influenza Vaccine (#1) [facility] Start: 10-27-2022 [facility] Start: 08-15-2022 COVID-19 Vaccine (4 - Booster for Moderna series) COVID-19 Vaccine (4 - Booster for Moderna series) [facility] Start: 08-09-2022 Patient referral [facility] Work Phone: Start: 05-25-2022 Creatinine measurement [facility] Start: 05-25-2022 Potassium measurement Potassium Level [facility] Start: 05-25-2022 Potassium monitoring Potassium monitoring [facility] Work Phone: Start: 08-02-2021 Influenza vaccination Flu vaccine (#1) [facility] Work Phone: Start: 2020 Abdominal aortic aneurysm screening ABDOMINAL AORTIC ANEURYSM HIGH RISK SCREEN [facility] Start: 2020 Pneumococcal 65+ years Vaccine (1 of 1 - PPSV23) Pneumococcal 65+ years Vaccine (1 of 1 - PPSV23) [facility] Work Phone: Start: 01-10-2020 Lipid panel Lipid Panel [facility] Start: 05-19-2019 Annual Wellness Visit (AWV) Annual Wellness Visit (AWV) [facility] Work Phone: Start: 11-01-2018 Lipid panel Lipid Panel [facility] Start: 01-08-2018 End: 01-08-2018 Appointment Appointment [facility] Work Phone: Start: 12-20-2017 End: 12-20-2017 Appointment Appointment [facility] Work Phone: Start: 09-13-2017 End: 09-13-2017 Follow Up Appt 3 months Follow Up Appt 3 months [facility] Work Phone: Start: 09-13-2017 End: 09-13-2017 Pacer Clinic Pacer Clinic [facility] Work Phone: Start: 09-13-2017 End: 09-13-2017 Patient encounter procedure Appointment [facility] Work Phone: Start: 09-13-2017 End: 09-13-2017 Follow Up Appt 3 months Follow Up Appt 3 months [facility] Work Phone: Start: 09-13-2017 End: 09-13-2017 Pacer Clinic [facility] Work Phone: Start: 07-16-2017 End: 07-16-2017 Patient encounter procedure Appointment [facility] Work Phone: Start: 07-03-2017 End: 07-07-2017 Follow Up Appt Other Follow Up Appt Other [facility] Work Phone: Start: 07-03-2017 End: 07-03-2017 Patient encounter procedure Appointment [facility] Work Phone: Start: 07-03-2017 End: 07-07-2017 Follow Up Appt Other Follow Up Appt Other [facility] Work Phone: Start: 07-02-2017 End: 07-02-2017 Patient encounter procedure Appointment [facility] Work Phone: Start: 06-19-2017 End: 06-19-2017 Esophagogastroduodenoscopy transoral diagnostic Upper gastrointestinal endoscopy [facility] Work Phone: Start: 06-19-2017 End: 06-19-2017 Follow Up Appt Other Follow Up Appt Other [facility] Work Phone: Start: 06-19-2017 End: 06-19-2017 Patient encounter procedure Appointment [facility] Work Phone: Start: 06-19-2017 End: 06-19-2017 Esophagogastroduodenoscopy transoral diagnostic Upper gastrointestinal endoscopy [facility] Work Phone: Start: 06-19-2017 End: 06-19-2017 Follow Up Appt Other Follow Up Appt Other [facility] Work Phone: Start: 06-14-2017 End: 06-14-2017 Follow Up Appt 3 months Follow Up Appt 3 months [facility] Work Phone: Start: 06-14-2017 End: 06-14-2017 Follow Up Appt 6 months Follow Up Appt 6 months [facility] Work Phone: Start: 06-14-2017 End: 06-14-2017 Pacer Clinic [facility] Work Phone: Start: 06-14-2017 End: 06-14-2017 PFM PFM [facility] Work Phone: Start: 06-14-2017 End: 06-14-2017 Patient encounter procedure App[facility]ment [facility] Work Phone: Start: 06-14-2017 End: 06-14-2017 Follow Up Appt 3 months Follow Up Appt 3 months [facility] Work Phone: Start: 06-14-2017 End: 06-14-2017 Follow Up Appt 6 months Follow Up Appt 6 months [facility] Work Phone: Start: 06-14-2017 End: 06-14-2017 Pacer Clinic Pacer Clinic [facility] Work Phone: Start: 06-14-2017 End: 06-14-2017 PFM PFM [facility] Work Phone: Start: 06-05-2017 End: 07-07-2017 Follow Up Appt 1 month Follow Up Appt 1 month [facility] Work Phone: Start: 06-05-2017 End: 07-07-2017 Follow Up Appt 1 month Follow Up Appt 1 month [facility] Work Phone: Start: 05-28-2017 End: 05-28-2017 Patient encounter procedure Appointment [facility] Work Phone: Start: 05-23-2017 End: 05-23-2017 Patient encounter procedure Appointment [facility] Work Phone: Start: 05-15-2017 End: 05-28-2017 Follow Up Appt Other Follow Up Appt Other [facility] Work Phone: Start: 05-15-2017 End: 05-15-2017 Patient encounter procedure Appointment [facility] Work Phone: Start: 05-15-2017 End: 05-28-2017 Follow Up Appt Other Follow Up Appt Other [facility] Work Phone: Start: 05-01-2017 End: 05-01-2017 Patient encounter procedure Appointment [facility] Work Phone: Start: 04-03-2017 End: 04-03-2017 Surgery Referral Surgery Referral Lowell Otero MD, [facility], [address], [address], [place], [address] [facility] Work Phone: Start: 04-03-2017 End: 05-24-2017 Admission to same day surgery center Surgery Referral Lowell Otero MD, [facility], [address], [address], [place], [address] [facility] Work Phone: Start: 12-14-2016 End: 12-14-2016 Device Interrogation Device Interrogation [facility] Work Phone: Start: 12-14-2016 End: 06-06-2017 Follow Up Appt 3 months Follow Up Appt 3 months [facility] Work Phone: Start: 12-14-2016 End: 12-14-2016 Follow Up Appt 6 months Follow Up Appt 6 months [facility] Work Phone: Start: 12-14-2016 End: 12-14-2016 MMM MMM [facility] Work Phone: Start: 12-14-2016 End: 06-06-2017 Pacer Clinic Pacer Clinic [facility] Work Phone: Start: 12-14-2016 End: 12-14-2016 Device Interrogation Device Interrogation [facility] Work Phone: Start: 12-14-2016 End: 06-06-2017 Follow Up Appt 3 months Follow Up Appt 3 months [facility] Work Phone: Start: 12-14-2016 End: 12-14-2016 Follow Up Appt 6 months Follow Up Appt 6 months [facility] Work Phone: Start: 12-14-2016 End: 12-14-2016 MMM MMM [facility] Work Phone: Start: 12-14-2016 End: 06-06-2017 Pacer Clinic [facility] Work Phone: Start: 09-05-2016 End: 12-14-2016 Follow Up Appt 3 months Follow Up Appt 3 months [facility] Work Phone: Start: 09-05-2016 End: 09-05-2016 Follow Up Appt Other Follow Up Appt Other [facility] Work Phone: Start: 09-05-2016 End: 12-14-2016 Pacer Clinic [facility] Work Phone: Start: 09-05-2016 End: 12-14-2016 Follow Up Appt 3 months Follow Up Appt 3 months [facility] Work Phone: Start: 09-05-2016 End: 09-05-2016 Follow Up Appt Other Follow Up Appt Other [facility] Work Phone: Start: 09-05-2016 End: 12-14-2016 Pacer Clinic Pacer Clinic [facility] Work Phone: Start: 06-01-2016 End: [...] stress test -Lexiscan Nuclear stress test -Lexiscan [facility] Work Phone: Start: 06-01-2016 End: 08-22-2016 Pacer Clinic Pacer Clinic [facility] Work Phone: Start: 06-01-2016 End: 06-01-2016 PFM PFM [facility] Work Phone: Start: 06-01-2016 End: 08-22-2016 Follow Up Appt 3 months Follow Up Appt 3 months [facility] Work Phone: Start: 06-01-2016 End: 06-01-2016 Follow Up Appt 6 months Follow Up Appt 6 months [facility] Work Phone: Start: 06-01-2016 End: 06-01-2016 MMM MMM [facility] Work Phone: Start: 06-01-2016 End: 06-01-2016 Nuclear stress test -Lexiscan Nuclear stress test -Lexiscan [facility] Work Phone: Start: 06-01-2016 End: 08-22-2016 Pacer Clinic Pacer Clinic [facility] Work Phone: Start: 06-01-2016 End: 06-01-2016 PFM PFM [facility] Work Phone: Start: 02-28-2016 End: 05-18-2016 Follow Up Appt 3 months Follow Up Appt 3 months [facility] Work Phone: Start: 02-28-2016 End: 05-18-2016 Pacer Clinic [facility] Work Phone: Start: 02-28-2016 End: 05-18-2016 Follow Up Appt 3 months Follow Up Appt 3 months [facility] Work Phone: Start: 02-28-2016 End: 05-18-2016 Pacer Clinic [facility] Work Phone: Start: 11-30-2015 End: 11-30-2015 Device Interrogation Device Interrogation [facility] Work Phone: Start: 11-30-2015 End: 11-30-2015 Echocardiography Echocardiogram (complete) [facility] Work Phone: Start: 11-30-2015 End: 05-18-2016 Follow Up Appt 3 months Follow Up Appt 3 months [facility] Work Phone: Start: 11-30-2015 End: 11-30-2015 Follow Up Appt 6 months Follow Up Appt 6 months [facility] Work Phone: Start: 11-30-2015 End: 11-30-2015 MMM MMM [facility] Work Phone: Start: 11-30-2015 End: 05-18-2016 Pacer Clinic [facility] Work Phone: Start: 11-30-2015 End: 11-30-2015 Device Interrogation Device Interrogation [facility] Work Phone: Start: 11-30-2015 End: 11-30-2015 Echocardiography Echocardiogram (complete) [facility] Work Phone: Start: 11-30-2015 End: 05-18-2016 Follow Up Appt 3 months Follow Up Appt 3 months [facility] Work Phone: Start: 11-30-2015 End: 11-30-2015 Follow Up Appt 6 months Follow Up Appt 6 months [facility] Work Phone: Start: 11-30-2015 End: 11-30-2015 MMM MMM [facility] Work Phone: Start: 11-30-2015 End: 05-18-2016 Pacer Clinic Pacer Clinic [facility] Work Phone: Start: 08-17-2015 End: 08-17-2015 *CBC with Differential *CBC with Differential [facility] Work Phone: Start: 08-17-2015 End: 05-18-2016 Follow Up Appt 3 months Follow Up Appt 3 months [facility] Work Phone: Start: 08-17-2015 End: 05-18-2016 Pacer Clinic [facility] Clinic [facility] Work Phone: Start: 08-17-2015 End: 08-17-2015 CBC W Auto Differential panel - Blood *CBC with Differential [facility] Work Phone: Start: 08-17-2015 End: 05-18-2016 Follow Up Appt 3 months Follow Up Appt 3 months [facility] Work Phone: Start: 08-17-2015 End: 05-18-2016 Pacer Clinic Pacer Clinic [facility] Work Phone: Start: 08-03-2015 End: 08-03-2015 Follow Up Appt 3 months Follow Up Appt 3 months [facility] Work Phone: Start: 08-03-2015 End: 08-03-2015 PFM PFM [facility] Work Phone: Start: 08-03-2015 End: 08-03-2015 Follow Up Appt 3 months Follow Up Appt 3 months [facility] Work Phone: Start: 08-03-2015 End: 08-03-2015 PFM PFM [facility] Work Phone: Start: 05-12-2015 End: 07-20-2015 Follow Up Appt 3 months Follow Up Appt 3 months [facility] Work Phone: Start: 05-12-2015 End: 07-20-2015 Pacer Clinic Pacer Clinic [facility] Work Phone: Start: 05-12-2015 End: 07-20-2015 Follow Up Appt 3 months Follow Up Appt 3 months [facility] Work Phone: Start: 05-12-2015 End: 07-20-2015 Pacer Clinic Pacer Clinic [facility] Work Phone: Start: 05-04-2015 End: 07-20-2015 *BMP *BMP [facility] Work Phone: Start: 05-04-2015 End: 07-20-2015 Follow Up Appt 3 months Follow Up Appt 3 months [facility] Work Phone: Start: 05-04-2015 End: 07-20-2015 MMM MMM [facility] Work Phone: Start: 05-04-2015 End: 07-20-2015 Basic metabolic 2000 panel - Serum or Plasma *BMP [facility] Work Phone: Start: 05-04-2015 End: 07-20-2015 Follow Up Appt 3 months Follow Up Appt 3 months [facility] Work Phone: Start: 05-04-2015 End: 07-20-2015 MMM MMM [facility] Work Phone: Start: 05-02-2015 End: 05-03-2015 *BMP *BMP [facility] Work Phone: Start: 05-02-2015 End: 05-03-2015 Basic metabolic 2000 panel - Serum or Plasma *BMP [facility] Work Phone: Start: 2015 RSV Immunization aged 60 or older (1 - 1-dose 60+ series) RSV Immunization aged 60 or older (1 - 1-dose 60+ series) [facility] Start: 03-30-2015 End: 07-20-2015 Follow Up Appt Other Follow Up Appt Other [facility] Work Phone: Start: 03-30-2015 End: 07-20-2015 Follow Up Appt Other Follow Up Appt Other [facility] Work Phone: Start: 03-16-2015 End: [...] Differential panel - Blood *CBC with Differential [facility] Work Phone: Start: 03-16-2015 End: 03-16-2015 Follow up Appt 3 weeks Follow up Appt 3 weeks [facility] Work Phone: Start: 03-16-2015 End: 03-16-2015 MMM MMM [facility] Work Phone: Start: 03-16-2015 End: 03-25-2015 Natriuretic peptide B [Mass/volume] in Blood *Brain Natriuretic Peptide BNP [facility] Work Phone: Start: 03-11-2015 End: 03-11-2015 *BMP *BMP [facility] Work Phone: Start: 03-11-2015 End: 03-11-2015 Basic metabolic 2000 panel - Serum or Plasma *BMP [facility] Work Phone: Start: 03-07-2015 End: 03-07-2015 Follow Up Appt Other Follow Up Appt Other [facility] Work Phone: Start: 03-07-2015 End: 03-07-2015 Follow Up Appt Other Follow Up Appt Other [facility] Work Phone: Start: 01-10-2015 End: 01-10-2015 *BMP *BMP [facility] Work Phone: Start: 01-10-2015 End: 01-10-2015 *CBC with Differential *CBC with Differential [facility] Work Phone: Start: 01-10-2015 End: 01-10-2015 Follow Up Appt 3 months Follow Up Appt 3 months [facility] Work Phone: Start: 01-10-2015 End: 01-10-2015 Magnesium *Magnesium [facility] Work Phone: Start: 01-10-2015 End: 01-10-2015 Pacer Clinic [facility] Clinic [facility] Work Phone: Start: 01-10-2015 End: 01-10-2015 PFM PFM [facility] Work Phone: Start: 01-10-2015 End: 01-10-2015 Thyroid stimulating hormone (TSH) *TSH [facility] Work Phone: Start: 01-10-2015 End: 01-10-2015 Basic metabolic 2000 panel - Serum or Plasma *BMP [facility] Work Phone: Start: 01-10-2015 End: 01-10-2015 CBC W Auto Differential panel - Blood *CBC with Differential [facility] Work Phone: Start: 01-10-2015 End: 01-10-2015 Follow Up Appt 3 months Follow Up Appt 3 months [facility] Work Phone: Start: 01-10-2015 End: 01-10-2015 Magnesium [Mass/volume] in Serum or Plasma *Magnesium [facility] Work Phone: Start: 01-10-2015 End: 01-10-2015 Pacer Clinic Pacer Clinic [facility] Work Phone: Start: 01-10-2015 End: 01-10-2015 PFM PFM [facility] Work Phone: Start: 01-10-2015 End: 01-10-2015 Thyrotropin [Units/volume] in Serum or Plasma *TSH [facility] Work Phone: Start: 12-03-2014 End: 01-10-2015 Follow Up Appt 3 months Follow Up Appt 3 months [facility] Work Phone: Start: 12-03-2014 End: 01-10-2015 Pacer Clinic Pacer Clinic [facility] Work Phone: Start: 12-03-2014 End: 01-10-2015 Follow Up Appt 3 months Follow Up Appt 3 months [facility] Work Phone: Start: 12-03-2014 End: 01-10-2015 Pacer Clinic Pacer Clinic [facility] Work Phone: Start: 08-19-2014 End: 01-10-2015 Follow Up Appt 3 months Follow Up Appt 3 months [facility] Work Phone: Start: 08-19-2014 End: 01-10-2015 Pacer Clinic Pacer Clinic [facility] Work Phone: Start: 08-19-2014 End: 01-10-2015 Follow Up Appt 3 months Follow Up Appt 3 months [facility] Work Phone: Start: 08-19-2014 End: 01-10-2015 Pacer Clinic Pacer Clinic [facility] Work Phone: Start: 07-16-2014 End: 07-16-2014 Ecg routine ecg w/least 12 lds w/i&r EKG (In office) [facility] Work Phone: Start: 07-16-2014 End: 07-16-2014 Follow Up Appt 6 months Follow Up Appt 6 months [facility] Work Phone: Start: 07-16-2014 End: 07-16-2014 PFM PFM [facility] Work Phone: Start: 07-16-2014 End: 07-16-2014 Ecg routine ecg w/least 12 lds w/i&r EKG (In office) [facility] Work Phone: Start: 07-16-2014 End: 07-16-2014 Follow Up Appt 6 months Follow Up Appt 6 months [facility] Work Phone: Start: 07-16-2014 End: 07-16-2014 PFM PFM [facility] Work Phone: Start: 05-14-2014 End: 01-10-2015 Follow Up Appt 3 months Follow Up Appt 3 months [facility] Work Phone: Start: 05-14-2014 End: 01-10-2015 Pacer Clinic Pacer Clinic [facility] Work Phone: Start: 05-14-2014 End: 01-10-2015 Follow Up Appt 3 months Follow Up Appt 3 months [facility] Work Phone: Start: 05-14-2014 End: 01-10-2015 Pacer Clinic [facility] Work Phone: Start: 02-25-2014 End: 03-07-2015 External Counterpulsation Therapy External Counterpulsation Therapy [address] [place] [address], [address], [place], [address] [facility] Work Phone: Start: 02-25-2014 End: 02-25-2014 Us abdominal real time w/image limited US Abdominal (aneurysm screening) [facility] Work Phone: Start: 02-25-2014 End: 03-07-2015 External Counterpulsation Therapy External Counterpulsation Therapy [address] [place] [address], [address], [place], [address] [facility] Work Phone: Start: 02-25-2014 End: 02-25-2014 Us abdominal real time w/image limited US Abdominal (aneurysm screening) [facility] Work Phone: Start: 02-05-2014 End: 01-10-2015 Follow Up Appt 3 months Follow Up Appt 3 months [facility] Work Phone: Start: 02-05-2014 End: 01-10-2015 Pacer Clinic Pacer Clinic [facility] Work Phone: Start: 02-05-2014 End: 01-10-2015 Follow Up Appt 3 months Follow Up Appt 3 months [facility] Work Phone: Start: 02-05-2014 End: 01-10-2015 Pacer Clinic Pacer Clinic [facility] Work Phone: Start: 01-07-2014 End: 01-07-2014 Follow Up Appt 6 months Follow Up Appt 6 months [facility] Work Phone: Start: 01-07-2014 End: 01-07-2014 PFM PFM [facility] Work Phone: Start: 01-07-2014 End: 01-07-2014 Follow Up Appt 6 months Follow Up Appt 6 months [facility] Work Phone: Start: 01-07-2014 End: 01-07-2014 PFM PFM [facility] Work Phone: Start: 11-06-2013 End: 01-10-2015 Cardiac Rehab Cardiac Rehab [facility] Work Phone: Start: 11-06-2013 End: 11-09-2013 Cardiovascular stress test using treadmill Treadmill stress test (no imaging) [facility] Work Phone: Start: 11-06-2013 End: 01-10-2015 Follow Up Appt 3 months Follow Up Appt 3 months [facility] Work Phone: Start: 11-06-2013 End: 01-10-2015 Pacer Clinic Pacer Clinic [facility] Work Phone: Start: 11-06-2013 End: 11-06-2013 PFM PFM [facility] Work Phone: Start: 11-06-2013 End: 01-10-2015 Cardiac Rehab Cardiac Rehab [facility] Work Phone: Start: 11-06-2013 End: 11-09-2013 Cardiovascular stress test using treadmill Treadmill stress test (no imaging) [facility] Work Phone: Start: 11-06-2013 End: 01-10-2015 Follow Up Appt 3 months Follow Up Appt 3 months [facility] Work Phone: Start: 11-06-2013 End: 01-10-2015 Pacer Clinic [facility] Work Phone: Start: 11-06-2013 End: 11-06-2013 PFM PFM [facility] Work Phone: Start: 11-01-2013 End: [...] Serum or Plasma *Lipid Profile CC PCP [facility] Work Phone: Start: 10-28-2013 End: 10-28-2013 Follow Up Appt Other Follow Up Appt Other [facility] Work Phone: Start: 10-28-2013 End: 10-28-2013 Follow Up Appt Other Follow Up Appt Other [facility] Work Phone: Start: 10-16-2013 End: 10-28-2013 *BMP *BMP [facility] Work Phone: Start: 10-16-2013 End: 10-28-2013 aPTT *PTT-Partial Thromboplastin Time [facility] Work Phone: Start: 10-16-2013 End: 10-28-2013 CBC W Auto Differential panel - Blood *CBC without Diff [facility] Work Phone: Start: 10-16-2013 End: 10-28-2013 Chest x-ray X-Ray, Chest, PA & Lateral [facility] Work Phone: Start: 10-16-2013 End: 10-28-2013 Ecg routine ecg w/least 12 lds w/i&r EKG (In office) [facility] Work Phone: Start: 10-16-2013 End: 10-28-2013 INR Coag RelTime (PPP) *PT/INR [facility] Work Phone: Start: 10-16-2013 End: 10-09-2013 Left Heart Cath W/Grafts Left Heart Cath W/Grafts [facility] Work Phone: Start: 10-16-2013 End: 10-28-2013 aPTT in Platelet poor plasma by Coagulation assay *PTT-Partial Thromboplastin Time [facility] Work Phone: Start: 10-16-2013 End: 10-28-2013 Basic metabolic 2000 panel - Serum or Plasma *BMP [facility] Work Phone: Start: 10-16-2013 End: 10-28-2013 CBC W Auto Differential panel - Blood *CBC without Diff [facility] Work Phone: Start: 10-16-2013 End: 10-28-2013 Chest x-ray X-Ray, Chest, PA & Lateral [facility] Work Phone: Start: 10-16-2013 End: 10-28-2013 Ecg routine ecg w/least 12 lds w/i&r EKG (In office) [facility] Work Phone: Start: 10-16-2013 End: 10-28-2013 INR in Platelet poor plasma by Coagulation assay *PT/INR [facility] Work Phone: Start: 10-16-2013 End: 10-09-2013 Left Heart Cath W/Grafts Left Heart Cath W/Grafts [facility] Work Phone: Start: 10-07-2013 End: 10-28-2013 Follow Up Appt Other Follow Up Appt Other [facility] Work Phone: Start: 10-07-2013 End: 10-28-2013 MMM MMM [facility] Work Phone: Start: 10-07-2013 End: 10-28-2013 Follow Up Appt Other Follow Up Appt Other [facility] Work Phone: Start: 10-07-2013 End: 10-28-2013 MMM MMM [facility] Work Phone: Start: 08-26-2013 End: 10-28-2013 Follow Up Appt 3 months Follow Up Appt 3 months [facility] Work Phone: Start: 08-26-2013 End: 10-28-2013 Pacer Clinic Pacer Clinic [facility] Work Phone: Start: 08-26-2013 End: 10-28-2013 Follow Up Appt 3 months Follow Up Appt 3 months [facility] Work Phone: Start: 08-26-2013 End: 10-28-2013 Pacer Clinic Pacer Clinic [facility] Work Phone: Start: 08-06-2013 End: 08-06-2013 Follow Up Appt Other Follow Up Appt Other [facility] Work Phone: Start: 08-06-2013 End: 08-06-2013 Follow Up Appt Other Follow Up Appt Other [facility] Work Phone: Start: 08-05-2013 End: 08-06-2013 Follow Up Appt 3 months Follow Up Appt 3 months [facility] Work Phone: Start: 08-05-2013 End: 08-06-2013 Pacer Clinic [facility] Work Phone: Start: 08-05-2013 End: 08-06-2013 Follow Up Appt 3 months Follow Up Appt 3 months [facility] Work Phone: Start: 08-05-2013 End: 08-06-2013 Pacer Clinic Pacer Clinic [facility] Work Phone: Start: 07-01-2013 End: 07-24-2013 Follow Up Appt 1 month Follow Up Appt 1 month [facility] Work Phone: Start: 07-01-2013 End: 07-24-2013 MMM MMM [facility] Work Phone: Start: 07-01-2013 End: 07-24-2013 Follow Up Appt 1 month Follow Up Appt 1 month [facility] Work Phone: Start: 07-01-2013 End: 07-24-2013 MMM MMM [facility] Work Phone: Start: 05-05-2013 End: 06-03-2013 Follow Up Appt 3 months Follow Up Appt 3 months [facility] Work Phone: Start: 05-05-2013 End: 06-03-2013 Pacer Clinic Pacer Clinic [facility] Work Phone: Start: 05-05-2013 End: 06-03-2013 Follow Up Appt 3 months Follow Up Appt 3 months [facility] Work Phone: Start: 05-05-2013 End: 06-03-2013 Pacer Clinic [facility] Work Phone: Start: 04-22-2013 End: 05-08-2013 *Hepatic Function Panel *Hepatic Function Panel [facility] Work Phone: Start: 04-22-2013 End: 05-08-2013 Lipid panel [AGGREGATE] *Lipid Profile [facility] Work Phone: Start: 04-22-2013 End: 05-08-2013 Hepatic function 2000 panel - Serum or Plasma *Hepatic Function Panel [facility] Work Phone: Start: 04-22-2013 End: 05-08-2013 Lipid 1996 panel - Serum or Plasma *Lipid Profile [facility] Work Phone: Start: 04-20-2013 End: 04-21-2013 Ecg routine ecg w/least 12 lds w/i&r EKG (In office) [facility] Work Phone: Start: 04-20-2013 End: 04-21-2013 Echocardiography Echocardiogram (complete) [facility] Work Phone: Start: 04-20-2013 End: 04-21-2013 Follow Up Appt 6 months Follow Up Appt 6 months [facility] Work Phone: Start: 04-20-2013 End: 04-21-2013 PFM PFM [facility] Work Phone: Start: 04-20-2013 End: 04-21-2013 Ecg routine ecg w/least 12 lds w/i&r EKG (In office) [facility] Work Phone: Start: 04-20-2013 End: 04-21-2013 Echocardiography Echocardiogram (complete) [facility] Work Phone: Start: 04-20-2013 End: 04-21-2013 Follow Up Appt 6 months Follow Up Appt 6 months [facility] Work Phone: Start: 04-20-2013 End: 04-21-2013 PFM PFM [facility] Work Phone: Start: 10-30-2012 End: 04-21-2013 Follow Up Appt 6 months Follow Up Appt 6 months [facility] Work Phone: Start: 10-30-2012 End: 04-21-2013 Follow Up Appt 6 months Follow Up Appt 6 months [facility] Work Phone: Start: 09-03-2012 End: 04-21-2013 *BMP *BMP [facility] Work Phone: Start: 09-03-2012 End: 04-21-2013 *Hepatic Function Panel *Hepatic Function Panel [facility] Work Phone: Start: 09-03-2012 End: 04-21-2013 Lipid panel [AGGREGATE] *Lipid Profile [facility] Work Phone: Start: 09-03-2012 End: 04-21-2013 Magnesium *Magnesium [facility] Work Phone: Start: 09-03-2012 End: 04-21-2013 Basic metabolic 2000 panel - Serum or Plasma *BMP [facility] Work Phone: Start: 09-03-2012 End: 04-21-2013 Hepatic function 2000 panel - Serum or Plasma *Hepatic Function Panel [facility] Work Phone: Start: 09-03-2012 End: 04-21-2013 Lipid 1996 panel - Serum or Plasma *Lipid Profile [facility] Work Phone: Start: 09-03-2012 End: 04-21-2013 Magnesium [Mass/volume] in Serum or Plasma *Magnesium [facility] Work Phone: Start: 04-17-2012 End: 04-18-2012 [employer] [facility], [address] [place] [address], [id number] [facility] Work Phone: Start: 04-17-2012 End: 04-17-2012 Follow Up Appt 6 months Follow Up Appt 6 months [facility] Work Phone: Start: 04-17-2012 End: 04-17-2012 Follow Up Appt 6 months Follow Up Appt 6 months [facility] Work Phone: Start: 04-17-2012 End: 04-18-2012 Patient encounter procedure [employer] [facility], [address] [place] [address], [id number] [facility] Work Phone: Start: 03-05-2012 End: 04-09-2012 *Hepatic Function Panel *Hepatic Function Panel [facility] Work Phone: Start: 03-05-2012 End: 04-09-2012 Lipid panel [AGGREGATE] *Lipid Profile [facility] Work Phone: Start: 03-05-2012 End: 04-09-2012 Hepatic function 2000 panel - Serum or Plasma *Hepatic Function Panel [facility] Work Phone: Start: 03-05-2012 End: 04-09-2012 Lipid 1996 panel - Serum or Plasma *Lipid Profile [facility] Work Phone: Start: 12-10-2011 End: 12-10-2011 Follow Up Appt Other Follow Up Appt Other [facility] Work Phone: Start: 12-10-2011 End: 12-10-2011 Follow Up Appt Other Follow Up Appt Other [facility] Work Phone: Start: 08-28-2011 Pneumococcal Vaccine: 65+ Years (2 - PCV) Pneumococcal Vaccine: 65+ Years (2 - PCV) [facility] Start: 08-28-2011 Pneumococcal Vaccine: 65+ Years (2 of 2 - PCV) Pneumococcal Vaccine: 65+ Years (2 of 2 - PCV) [facility] Start: 2005 Prostate specific antigen measurement PROSTATE CANCER SCREENING DISCUSSION [facility] Start: 2005 Screening for malignant neoplasm of colon Colon cancer screen colonoscopy [facility] Work Phone: Start: 2005 Shingles Vaccine (1 of 2) Shingles Vaccine (1 of 2) [facility] Work Phone: Start: 2000 Screening for malignant neoplasm of colon COLORECTAL CANCER SCREENING DISCUSSION [facility] Start: 1995 Diabetes screen Diabetes screen [facility] Work Phone: Start: 1995 Lipid panel LIPID SCREENING [facility] Start: 1973 Diabetes mellitus screening Diabetes Screening [facility] Start: 1973 Hepatitis C screening Hepatitis C Screening [facility] Start: 1967 Depression Screening Depression Screening [facility] Start: 1965 Lipid panel Lipid screen [facility] Work Phone: Start: 1955 Abdominal aortic aneurysm screening AAA screen [facility] Work Phone: Start: 1955 Echocardiography Echocardiogram [facility] Start: 1955 Hepatitis B Vaccines (1 of 3 - 3-dose series) Hepatitis B Vaccines (1 of 3 - 3-dose series) [facility] Start: 1955 Hepatitis C screening [facility] Start: 1955 Medicare Advantage Annual Wellness Visit (AWV) Medicare Advantage Annual Wellness Visit (AWV) [facility] Start: 1955 Screening for malignant neoplasm of colon [facility] Alanine aminotransfe rase [Enzymatic activity/volume] in Serum or Plasma [facility] Aspartate aminotrans ferase [Enzymatic activity/volume] in Serum or Plasma [facility] AUTOPAP AutoPAP Respirat ory Care Routine QHS until discontinued starting 05/25/2021 [employer] Work Phone: Comment on above: QHS until discontinued starting 05/25/20 Comprehensive metabo lic 2000 panel - Serum or Plasma [facility] Electrophysiology study EP PROCE DURE - EPS/ABLATION/DEVICE Electrophysiology Routine ICD (implantable cardioverter-defibrill ator) battery depletion 01/06/2024 1:36 PM EST [facility] End: 05-24-2021 FL Greater Than 1 Hour FL Greater Than 1 Hour Imaging Routine Once for 1 Occurrences starting 05/24/2021 until 05/24/2021 [employer] Work Phone: Comment on above: Once for 1 Occurrences starting 05/24/20 21 until 05/24/2021 FL Greater Than 1 Hour FL Greate r Than 1 Hour Imaging Routine 05/24/2021 2:20 PM EDT [employer] Work Phone: End: 01-06-2024 Interrogation of cardiac pacemaker PACEMAKER/ICD INTERROGATION Cardiac Services Routine One Time for 1 Occurrences starting 01/06/2024 until 01/06/2024 [facility] Comment on above: One Time for 1 Occurrences starting 04/2024 until 01/06/2024 Lipid 1996 panel - S silvana or Plasma [facility] Lipid 1995 panel - S silvana or Plasma [facility] NM Heart Views W str ess and W radionuclide IV [facility] Oxygen therapy [[facility] Data Set] Initiate Oxygen Therapy Protocol Respiratory Care Routine Daily until discontinued starting 05/24/2021 [employer] Work Phone: Comment on above: Daily until discontinued starting 2020 Patient Education [facility] Work Phone: Patient referral [facility] Work Phone: Troponin T.cardiac [Mass/volume] in Serum or Plasma by High sensitivity method [facility] US Heart [facility] VL DUP LOWER EXTREMI TY VENOUS BILATERAL VL DUP LOWER EXTREMITY VENOUS BILATERAL Imaging Routine Every Mo,Th until discontinued starting 05/29/2021, 1 completed [facility] Work Phone: Comment on above: Every Mo,Th until discontinued starting 05/29/2021, 1 completed Immunizations Immunization Date Immunization Notes Care Provider Bryan ledesma 09-04-2022 influenza virus vaccine, unspecified formulation Kel Nielsen MD Work Phone: [facility] 01-17-2021 Covid (Moderna) Dr. Speedy mckeon Work Phone: [facility] 12-21-2020 Covid (Moderna) Dr. Speedy mckeon Work Phone: [facility] 10-02-[address] Speedy Boswell Work Phone: [facility] 05-27-2014 tetanus toxoid, reduced diphtheria toxoid, and acellular pertussis vaccine, adsorbed Dr. Speedy Boswell Work Phone: [facility] 09-01-[address] Speedy Boswell Work Phone: [facility] 02-13-[address] Veronica Boswell Work Phone: [facility] Work Phone: 02-13-2005 pneumococcal vaccine , unspecified formulation Dr. Speedy Boswell Work Phone: [facility] Payers Date Payer Category Payer Self-pay [id number] 2023 Medicare [id number] 2023 Unknown [id number] 2022 Medicare [id number] 2021 Medicare [id number] 2020 Medicare [id number] 2020 Unknown [id number] 2010 Private Health Insurance [id number] 1955 Unknown [id number] 2.16.840.1.709968.3.579.2.5 94 1955 Unknown [id number] 2.16.840.1.939023.3.579.2.5 94 1955 Unknown [id number] 2.16.840.1.402311.3.579.2.5 94 1955 Unknown [id number] 2..840.1.913249.3.579.2.5 1955 Unknown [id number] 2..840.1.980466.3.579.2.5 94 Medicare [id number] Private Health Insurance [facility] 18 [id number] Unknown [id number] 2.16.840.1.017023.3.579.2.4 62 Unknown [id number] 2.16.840.1.118810.3.579.2.4 62 Unknown [id number] 2.16.840.1.548851.3.579.2.4 62 Unknown [id number] 2.16.840.1.177653.3.579.2.4 62 Unknown [id number] 2.16.840.1.474220.3.579.2.4 62 Unknown [id number] 2.16.840.1.800123.3.579.2.4 62 Unknown [id number] 2.16.840.1.634009.3.579.2.4 62 Unknown [id number] 2.16.840.1.112383.3.579.2.4 62 Unknown [id number] 2.16.840.1.876941.3.579.2.4 62 Unknown [id number] 2.16.840.1.659688.3.579.2.4 62 Unknown [id number] 2.16.840.1.110963.3.579.2.4 62 Unknown [id number] 2.16.840.1.643313.3.579.2.4 62 Unknown [id number] 2.16.840.1.184620.3.579.2.4 62 Unknown [id number] 2.16.840.1.680741.3.579.2.4 62 Unknown [id number] 2.16.840.1.092480.3.579.2.4 62 Unknown [id number] 2.16.840.1.542645.3.579.2.4 62 Unknown [id number] 2.16.840.1.325515.3.579.2.4 62 Unknown [id number] 2.16.840.1.362997.3.579.2.4 62 Unknown [id number] 2.16.840.1.115289.3.579.2.4 62 Unknown [id number] 2.16.840.1.789707.3.579.2.4 62 Unknown [id number] 2.16.840.1.617714.3.579.2.4 62 Unknown [id number] 2.16.840.1.883971.3.579.2.4 62 Social History Date Type Detail Facility Start: 05-25-2021 End: 05-09-2025 Tobacco smoking status [facility] Former smoker [facility] Work Phone: End: 12-02-1980 History of tobacco use Current smoker [facility] End: 12-02-1980 History of tobacco use Cigarette Smoker [facility] Start: 05-25-2021 End: 02-11-2023 Cigarettes smoked current (pack per day) - Reported [facility] Work Phone: Start: 05-25-2021 End: 02-11-2023 Tobacco use and exposure Current user [facility] History of tobacco use Chews Tobacco [facility] Start: 05-25-2021 End: 02-11-2023 Alcohol intake Current drinker of alcohol (finding) [facility] Work Phone: Start: 05-04-2019 Alcohol Comment [facility] Work Phone: Start: 1955 Sex Assigned At Not on file S [employer] Work Phone: Start: 02-01-2023 End: 08-26-2023 Exposure to SARS-CoV-2 (event) Not sure [facility] Start: 02-05-2022 End: 10-30-2023 Tobacco smoking status NHIS Unknown if ever smoked [facility] Start: 02-18-2021 None [facility] Start: 02-18-2021 Alone [facility] Start: 04-06-2021 Non-smoker [facility] Start: 1955 Sex Assigned At Male W [facility] Start: 03-18-2015 End: 08-26-2023 Tobacco use panel [facility] Start: 02-04-2023 Gender identity Identifies as male gender (finding) [facility] Start: 02-04-2023 Sexual orientation Heterosexual (fin ding) [facility] Medical Equipment Procedure Code Equipment Code Equipment [...] FDA Star t: 08-05-2019 Defibrillator Cr d [id number] Fortify Asr Parylene 2 - [id number] Start: 01-06-2024 Lead Pacing 52cm 6fr Endocardium Tendril Sts Bipolar Active - [id number] Start: 01-06-2024 SUTURE,2 FIBERLINK FDA Start: [...] Assessment Result Facility 05-09-2025 Cognitive function Voice/Name [facility] Work Phone: Clinical Notes 08-02-2010 to 06-24-2025 Note Date & Type Note Facility 06-24-2025 Progress note [facility] 06-24-2025 Progress note Note Date/Time June 24, 2025 3:15pm [facility] [address] [place] [address] [address] [place] [address] OFFICE VISIT Date of Service: 06/24/25 MR#: [id number] Acct: [id number] Name: ALBIN ISSA Rep #: [id number] : 1955 Provider: Dr. Rich Anguiano MD Age/Sex: 70/M Location: [facility] [place] Status: Signed Intake Vital Signs 05/09/25 00:02 Height 5 ft 7 in Intake Visit Reasons: BILATERAL WRISTS Chief Complaint: Bilateral Wrist Pain Accompanied by: Self Is patient in pain?: Yes (Left is worse (with brace) - 6 Right - 4 ) Allergies No Known Allergies Allergy (Verified 06/24/25 14:43) Medications ?Medication ?Instructions ?Recorded ?Confirmed ?Type aspirin 81 mg chewable tablet 81 mg PO QHS [facility] 06/09/17 06/24/25 History gabapentin 300 mg capsule 300 mg PO QHS Rls 09/21/20 0 06/24/25 History temazepam 15 mg capsule 15 mg PO QHS PRN Sleep 09/2106/24/25 History trazodone 50 mg tablet 50 mg PO QHS sleep 03/22/21 06/24/25 History escitalopram oxalate 20 mg tablet 20 mg PO DAILY 08/2006/24/25 History multivitamin (Daily Multi-Vitamin 1 tab PO DAILY 05/2706/24/25 History tablet) pantoprazole 40 mg tablet,delayed 40 mg PO DAILY gerd #90 tabs 09/21/24 06/24/25 Rx release clopidogrel 75 mg tablet (Plavix) 75 mg PO DAILY blood clots #90 tabs 10/12/24 06/24/25 Rx acetaminophen 500 mg tablet 1,000 mg PO Q8 PRN fever o r pain 10/21/24 06/24/25 History desloratadine 5 mg tablet 5 mg PO DAILY PRN allergy sy mptoms 10/21/24 06/24/25 History finasteride 5 mg tablet 5 mg PO DAILY 10/21/2406/24 History dapagliflozin propanediol 10 mg 10 mg PO DAILY #90 tab s 12/10/24 06/24/25 Rx tablet (Farxiga) carvedilol 25 mg tablet 25 mg PO BID heart #180 tabs 12/25/24 06/24/25 Rx ramipril 10 mg capsule 10 mg PO DAILY #90 caps 04/0106/24/25 Rx atorvastatin 40 mg tablet (Lipitor) 40 mg PO QDAY #90 tabs 05/03/25 06/24/25 Rx isosorbide mononitrate 60 mg 60 mg PO QDAY blood press ure #90 05/03/25 06/24/25 Rx tablet,extended release 24 hr tabs furosemide 40 mg tablet 40 mg PO QDAY #90 tabs 06/2306/24/25 Rx potassium chloride 20 mEq 20 meq PO QDAY supplement #1 80 tabs 06/23/25 06/24/25 Rx tablet,extended release spironolactone 25 mg tablet 25 mg PO DAILY #30 tabs 06/24/25 Rx Have you fallen in the past year?: No PFSH Medical History Coronary atherosclerosis of bypass [...] (gastroesophageal reflux disease) Atherosclerotic heart disease of [place] coronary artery without angina pectoris Shortness of breath History of 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 alf use of drug Ischemic cardiomyopathy (~10/30/23) Atherosclerosis of coronary artery bypass graft without angina pectoris Gastroenteritis SIRS (systemic inflammatory response syndrome) Morbid obesity with BMI of 40.0-44.9, adult Effects of radiation Acute lymphangitis of right lower extremity ICD (implantable cardioverter-defibrillator) in place (~08/17/10) Lymphedema of Right Leg CAD (coronary artery disease) Chronic Systolic CHF - EF 45% GERD (gastroesophageal reflux disease) Surgical History History of implantable cardiac defibrillator [...] use type: does not use caffeine: Yes HPI BILATERAL WRISTS Details: This documentation accurately reflects the service provided and the decisions made by me, Dr. Jm Anguiano MD 06/24/25 1440. Part of today?s visit was documented by [ ], acting as scribe. ALBIN ISSA is a 70 year old M here today for bilat thumb pain at the base,worse on the left side, 4/10 on the right, 5/6 on the left. using the braces. 3 weeks. no trauma. uses a walker. 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 retired. [employer]. Ortho Exam General General: Yes no acute distress Neurologic: Yes alert and Yes oriented x3 Psychologic: Yes reasonable and appropriate Right Wrist/Hand Skin/Wound: Yes CDI, Yes Swelling, No Ecchymosis, Yes nail intact and Yes capillary refill normal Right Wrist: Yes ROM-Extension 0-60, ROM-Flexion 0-80, ROM-Pronation 0-80, ROM-Supination 0-90, Thomas's Test and tender to palpate 1st dorsal compartment; No Tinel's, Phalen's, Distal radioulnar joint, CMC Grind, tender topalpate carpometacarpal joint, Thenar Atrophy or Hypothenar Atrophy Motor: EPL: 5, FDP-2: 5, 1st Dorsal Interosseous: 5 and APB: 5 Sensation: Radial: I, Ulnar: I and Median: I Left Wrist/Hand Skin/Wound: Yes CDI, Yes Swelling, No Ecchymosis, Yes nail intact, No capillary refill normal and No erythema Left Wrist: Yes ROM-Extension 0-60, Yes ROM-Flexion 0-80, Yes ROM-Pronation 0-80, Yes ROM-Supination 0-90, Yes Thomas's Test, Yes tender to palpate 1st dorsal compartment and Yes tender to palpate carpometacarpal joint; No Tinel's, No Tender to palpate triangular fibrocartilage complex, No Distal radioulnar joint, No CMC Grind, No Thenar Atrophy and No Hypothenar Atrophy Motor: EPL: 5, FDP-2: 5, 1st Dorsal Interosseous: 5 and APB: 5 Sensation: Radial: I, Ulnar: I and Median: I Coding Level of Care Code Attention Credit Correspondence Clerk Diagnoses De Quervain's disease (radial styloid tenosynovitis) M65.4 Comment 26505 and cpt inject thumb tendon x 2 Assessment and Plan Assessment and Plan (1) De Quervain's disease (radial styloid tenosynovitis): Plan: 70-year-old man with bilateral de Quervain's tenosynovitis both wrists. He wished to go ahead with injections as well as we prescribed him bilateral thumb spica braces to use as needed and follow-up as needed. Pros and cons risks and benefits of bilateral first dorsal compartment steroid injection were discussed. Patient wished to proceed. Risks include but not limited to infection, pain, stiffness, damage to other structures, neurovascularinjury, wear further tear of the tendon and other structures such as the skin, bleeding, allergic reaction, acute flare reaction and other risks. Obtained informed consent for injection. Area over radial styloid, bilateral first dorsal compartment, was prepped with chlorhexidine solution allowed to thoroughly dry over 3 minutes. Used Gebauer spray per bottle instructions. Using sterile technique, injected both bilateralfirst dorsal compartment with 1 cc 0.25% bupivacaine and 0.5 cc 40 mg/mL kenalog. The patient tolerated the injection well without any noted complication. Bandage placed. Red flag symptoms were discussed such as redness,swelling, discharge, drainage, pain worsens or if they have any concerns to present to the ED or to call the clinic immediately. De Quervain's tenosynovitis is a condition that causes pain and inflammation in the tendons on the thumb side of the wrist. Treatment options include: Non-Surgical Measures: Rest: Avoid activities that aggravate the pain. Splinting: Wear a thumb spica splint to immobilize the thumb and wrist. Activity modification: Change daily habits to reduce strain on the tendons, suchas using both hands for tasks that require gripping. Non-steroidal anti-inflammatory drugs (NSAIDs): Ibuprofen or naproxen can help reduce pain and inflammation. Corticosteroid injections: Injections of corticosteroids into the affected tendon sheath can provide temporary relief from pain and inflammation. Surgical Intervention: Surgery may be considered if non-surgical measures fail to relieve symptoms. The procedure involves releasing the narrowed tendon sheath to create more spacefor the tendons Clinical Quality Measures Falls Risk Screening/Assistive Devices Have you fallen in the past year?: No 06/24/25 1651 <Electronically signed by Jm pollock MD> Date _ Jm Anguiano MD Cosigner Signature: Date (if applicable) CC: ~ [facility] [employer] Work Phone: [phone] 478-242606-11-2025 Radiology Diagnostic study note [facility] Imaging Services [address] [place] [address] CTA Chest W/WO Contrast MR#: [id number] Acct: [id number] Name: ALBIN ISSA Rep #: [id number] : 1955 M 70 From: Madiha Kirk MD PCP: Dr. Speedy Boswell MD Status: REG C YOUNG Study:CTA Chest W/WO Contrast Date of Exam: 05/12/25 Exam# [id number] Ordering Dr: Speedy Boswell MD PROCEDURE: CTA CHEST W/WO CONTRAST 05/12/2025 REASON FOR EXAM: Chest pain TECHNIQUE: CTA axial imaging of the chest with intravenous contrast. Multiplanar and multisequence images wereobtained. PATIENT PREPARATION: Per protocol CONTRAST: 100 mL [...] lobar branches. No focal consolidations. Reading Location: [id number] CC: Dr. Speedy Boswell MD ~ Ground Support Equipment Mechanic: Signed [facility]06-08-2025 Radiology Diagnostic study note [facility] Imaging Services [address] [place] [address] Chest PA and Lateral MR#: [id number] Acct: [id number] Name: ALBIN ISSA Rep #: [id number] : 1955 M 70 From: Sherif Kolb MD PCP: Dr. Speedy Boswell MD Status: REG E R Study:Chest PA and Lateral Date of Exam: 05/09/25 Exam# [id number] Ordering Dr: Kenneth Redmond DO PROCEDURE: CHEST [...] mild central pulmonary venous congestion. Reading [facility] CC: Dr. Speedy Boswell MD; Dr. Kenneth Redmond DO ~ Ground Support Equipment Mechanic: Signed [facility]06-02-2025 Evaluation note* Diagnosis Onset Date Resolution Status Admit Date CAD (coronary artery disease) chroni c May 03, 2025 2:00pm Essential hypertension chronic Ju 2024 2:00pm ICD (implantable cardioverter-defibrillator) in place August, chronic May 03, 2025 2:00pm Ischemic cardiomyopathy October, chronic Chandrika 2nd, 2025 2:00pm Mixed hyperlipidemia chronic May 03, 2025 2:00pm Obesity (BMI 30-39.9) chronic May 2:00pm [facility] Work Phone: [phone] [id number] Evaluation note* Diagnosis Onset Date Resolution Status Admit Date CAD (coronary artery disease) chronic May 03, 2025 2:00pm Essential hypertension chronic Ju 2024 2:00pm ICD (implantable cardioverter-defibrillator) in place August, chronic May 03, 2025 2:00pm Ischemic cardiomyopathy October, chronic May 03, 2025 2:00pm Mixed hyperlipidemia chronic May 03, 2025 2:00pm Obesity (BMI 30-39.9) chronic May 2:00pm De Quervain's disease (radial styloid tenosynovitis) noneactive June 24, 2025 2:33pm [facility] Work Phone: 1(263) 605-186606-02-2025 [facility] [address] [place] [address] OFFICE VISIT Date of Service: 05/03/25 MR#: [id number] Acct: [id number] Name: ALBIN ISSA Rep #: [id number] : 1955 Provider: Dr. 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 There is mild global hypokinesis. Gay is dyskinetic. The reported LVEF is 46%. [...] 3. Left main coronary artery: A. Proximal salt river band without angiographically significant appearing disease 4. [...] the LAD receives predominant flow via the salt river system 8. Free SARIAH arising from the [...] Artery/Lesion type: unspecified vessel or lesion type [place] vs. transplanted heart: unspecified whether salt river or transplanted heart Associated angina: angina presence unspecified Qualified Code(s): I25.10 - Atherosclerotic heart disease of salt river coronary artery without angina pectoris Plan: Status [...] unspecified, unspecified vessel or lesion type,unspecified whether salt river or transplanted heart I25.10 Coronary Disease-Associated Artery/Lesion type: unspecified vessel or lesion type [place] vs. transplanted heart: unspecified whether salt river or transplanted heart Associated angina: angina presence unspecified Ischemic cardiomyopathy I25.5 ICD (implantable cardioverter-defibrillator) in place Z95.810 Mixed hyperlipidemia E78.2 Essential hypertension I10 Obesity (BMI 30-39.9) E66.9 Coding Level of Care Code Off vis,est,level 4 Diagnoses Atherosclerosis of coronary artery, angina presence unspecified, unspecified vessel or lesion type,unspecified whether salt river or transplanted heart I25.10 Coronary Disease-Associated Artery/Lesion type: unspecified vessel or lesion type [place] vs. transplanted heart: unspecified whether salt river or transplanted heart Associated angina: angina presence unspecified Ischemic cardiomyopathy I25.5 ICD (implantable cardioverter-defibrillator) in place Z95.810 Mixed hyperlipidemia E78.2 Essential hypertension I10 Obesity (BMI 30-39.9) E66.9 Clinical Quality Measures Falls Risk Screening/Assistive Devices Have you fallen in the past year?: No Cardiac Ejection fraction %: 40 05/03/25 1424 MD> Date _ Delilah Foster MD Cosigner Signature: Date (if applicable) CC: Dr. Speedy Boswell MD ~ [facility]06-02-2025 Progress note Author Delilah Foster [facility] Note Date/Time May 03, 2025 2:24p m [facility] [address] [place] [address]. [address] [place] [address] OFFICE VISIT Date of Service: 05/03/25 MR#: [id number] Acct: [id number] Name: ALBIN ISSA Rep #: [id number] : 1955 Provider: Dr. Fernando Foster MD Age/Sex: 70/M Location: [facility] – [place] Status: Signed HPI HPI History of Present [...] without angina pectoris Atherosclerotic heart disease of [place] river coronary artery without angina pectoris Automatic implantable [...] epicondylitis of left elbow Left elbow pain alf use of drug Lymphedema of Right Leg [...] apical infarct. There is mild global hypokinesis. Gay is dyskinetic. The reported LVEF is 46%. [...] 3. Left main coronary artery: A. Proximal salt river band without angiographically significant appearing disease 4. [...] the LAD receives predominant flow via the salt river system 8. Free SARIAH arising from the [...] Artery/Lesion type: unspecified vessel or lesion type [place] vs. transplanted heart: unspecified whether salt river or transplanted heart Associated angina: angina presence unspecified Qualified Code(s): I25.10 - Atherosclerotic heart disease of salt river coronary artery without angina pectoris Plan: Status [...] unspecified vessel or lesion type, unspecified whether salt river or transplanted heart I25.10 Coronary Disease-Associated Artery/Lesion type: unspecified vessel or lesion type [place] vs. transplanted heart: unspecified whether salt river or transplanted heart Associated angina: angina presence unspecified Ischemic cardiomyopathy I25.5 ICD (implantable cardioverter-defibrillator) in place Z95.810 Mixed hyperlipidemia E78.2 Essential hypertension I10 Obesity (BMI 30-39.9) E66.9 Coding Level of Care Code Off vis,est,level 4 Diagnoses Atherosclerosis of coronary artery, angina presence unspecified, unspecified vessel or lesion type, unspecified whether salt river or transplanted heart I25.10 Coronary Disease-Associated Artery/Lesion type: unspecified vessel or lesion type [place] vs. transplanted heart: unspecified whether salt river or transplanted heart Associated angina: angina presence unspecified Ischemic cardiomyopathy I25.5 ICD (implantable cardioverter-defibrillator) in place Z95.810 Mixed hyperlipidemia E78.2 Essential hypertension I10 Obesity (BMI 30-39.9) E66.9 Clinical Quality Measures Falls Risk Screening/Assistive Devices Have you fallen in the past year?: No Cardiac Ejection fraction %: 40 05/03/25 1424 <Electronically signed by Delilah Foster MD> Date _ Delilah Foster MD [facility] Signature: Date (if applicable) CC: Dr. Speedy Boswell MD ~ [facility] Work Phone: 1(723) 255-957812-18-2024 [facility] Medical Records Department [address] [place] [address] History Physical Exam 11/18/24 0717 MR#: [id number] Acct: [id number] Name: ALBIN ISSA Rep #: [id number] : 1955 69 From: Rvai Holder MD PCP: Dr. Speedy Boswell MD Status:[facility] Location: [address] General General Date of Service: 11/18/24 Chief [...] treated, plan to do laser of stones. [facility] Medical History (Updated 11/05/24 @ 15:21 [...] (gastroesophageal reflux disease) Atherosclerotic heart disease of salt river coronary artery without angina pectoris Shortness of breath History of 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 alf use of drug Ischemic cardiomyopathy ( 10/30/23) [...] implantable cardiac defibrillator (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 [facility]04-29-2024 History of Present illness Narrative* Kel Nielsen MD - 03/30/2024 2:00 PM EDT Images from the original note were not included. [facility] [address] [facility] [address] Dept: [phone] Dept Chief Complaint Patient presents with Follow-up [...] prior to signing but minor errors in shoe maker may have occurred. documented in this [facility]04-29-2024 Instructions* Patient Instructions* Kel Nielsen MD [...] call theoffice as soon as possible at [phone] documented in this [facility]02-06-2024 Hospital course Narrative* SHEILA Hilton - 01/07/2024 8:06 AM EST Discharge Summary Name: Albin Issa Age: 68 y.o. Birthday: 1955 Admit Date: 01/06/2024 7:01 AM Discharge Date: 01/07/2024 Discharge Time: 0800 Discharge Unit: [facility] 36 Admission Information Admitting Physician: David Ramirez MD Discharge Information Discharge Provider: Rosio Douglass CNP Problem List Active Hospital Problems Diagnosis Pacemaker lead malfunction Resolved Hospital Problems No resolved problems to display. Brief Summary of Hospital Course for Discharge Summary: Albin Issa is a 68 y.o. male with ICM s/p [place] DC ICD, CAD s/p NM 2004, s/p CABG 2004, s/p right AKA amputation, HLD. He was evaluated in EP clinic on 11/21/2023 for consultation. He reported occasional dyspnea on exertion. 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 On 11/21/2023, he underwent a venogram revealing [...] s/p [place] DC ICD, CAD s/p NM 2004, s/p CABG 2004, s/p right AKA amputation, HLD.He was evaluated in EP clinic on 11/21/2023 for consultation. He reported occasional dyspnea on exertion. 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 He underwent successful placement of additional RA lead. Device generator exchanged. Excellent lead parameters. IV Vancomycin is utilized because: Physician/GLASS EMBOSSER/PA or pharmacist documentation of increased MRSA rate, [...] No follow-up provider specified. [facility] Hospital Discharge instructions* Discharge Instr - Activity* Rosio Douglass APRN-FINANCIAL ADMINISTRATION OFFICER - 01/07/2024 7:56 AM EST YOUR ACTIVITY [...] skin during body movement. [facility] NoteIMPRESSION: Limited evaluation. No acute pulmonary finding. Cardiomegaly. RADIOLOGY 01-06-2024 History and physical note* SHEILA Hilton - 01/06/2024 7:13 AM EST Images from the original note were not included. Chief Complaint Dyspnea on exertion HPI Albin Issa is a 68 y.o. male with ICM s/p [place] DC ICD, CAD s/p NM 2004, s/p CABG 2004, s/p right AKA amputation, HLD. He was evaluated in EP clinic on 11/21/2023 for consultation. He reported occasional dyspnea on exertion. 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 On 11/21/2023, he underwent a venogram revealing [...] and impedance measurements are appropriate. AP 41%. SALVAGER HELPER 7.4%. Device is programmed DDD at 60 bpm. Since last evaluation 09/10/2023, counters reveal no arrhythmia events. Since 11/10/2023, there have been 48 atrial noise events noted. Patient explains that this has been a current issue and due to battery status at PROJECT DEVELOPER, patient is here at [facility] for evaluation of new device and atrial lead extractionand replacement. Isometrics completed, and able to reproduce noise on the atrial lead. The battery status at PROJECT DEVELOPER with voltage of 2.45V (JESSICA is 2.45V). Changes made to the device today: None. All findings given to Dr Ramirez and EP fellow. Patient follows at [facility]. Addendum: per order of Dr [...] and capping of existing lead. -Arrived in [facility] since 1900 -OK to proceed pending lab results Associated attestation - David Ramirze MD - 01/06/2024 12:26 PM EST Patient [...] as addended by me. David Ramirez MD01/06/2024 [facility]02-05-[facility] History and physical note* Rosio Douglass APRN-FINANCIAL ADMINISTRATION OFFICER - 01/06/2024 7:13 AM EST Images from the original note were not included. Chief Complaint Dyspnea on exertion HPI Albin Issa is a 68 y.o. male with ICM s/p [place] DC ICD, CAD s/p NM 2004, s/p CABG 2004, s/p right AKA amputation, HLD. He was evaluated in EP clinic on 11/21/2023 for consultation. He reported occasional dyspnea on exertion. 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 On 11/21/2023, he underwent a venogram revealing [...] and impedance measurements are appropriate. AP 41%. SALVAGER HELPER 7.4%. Device is programmed DDD at 60 bpm. Since last evaluation 09/10/2023, counters reveal no arrhythmia events. Since 11/10/2023, there have been 48 atrial noise events noted. Patient explains that this has been a current issue and due to battery status at PROJECT DEVELOPER, patient is here at [facility] for evaluation of new device and atrial lead extractionand replacement. Isometrics completed, and able to reproduce noise on the atrial lead. The battery status at PROJECT DEVELOPER with voltage of 2.45V (JESSICA is 2.45V). Changes made to the device today: None. All findings given to Dr Ramirez and EP fellow. Patient follows at [facility]. Addendum: per order of Dr [...] and capping of existing lead. -Arrived in [facility] since 1899 -OK to proceed pending lab [...] me. David Ramirez MD01/06/2024 [facility] History of Present illness Narrative* Kel Nielsen MD - 08/26/2023 3:15 PM EDT Images from the original note were not included. [facility] [address] [facility] [address] Dept: [phone] Dept Chief Complaint Patient presents with Follow-up [...] prior to signing but minor errors in shoe maker may have occurred. documented in this [facility]09-25-2023 Instructions* Patient Instructions* Kel Nielsen MD [...] call theoffice as soon as possible at [phone] documented in this [facility]03-13-2023 History of Present illness Narrative* Kel Nielsen MD - 02/11/2023 3:20 PM EDT Images from the original note were not included. [facility] [address] [facility] [address] Dept: [phone] Dept Chief Complaint Patient presents with Injection [...] prior to signing but minor errors in shoe maker may have occurred. documented in this [facility]03-13-2023 Instructions* Patient Instructions* Kel Nielsen MD [...] call theoffice as soon as possible at [phone] documented in this [facility]07-01-2021 History of Present illness Narrative* Kenan Jacobsen RN - 06/01/2021 1:16 AM EDT Pt discharged to Maybee manner via Don Judi on a cot. Pt verified to have all belongings and IV removed. * Agnieszka Longoria RCP - 05/31/2021 10:52 PM EDT [facility] Respiratory Care Department Progress Note Patient was [...] Longoria RCP - 05/30/2021 9:15 PM EDT [facility] Respiratory Care Department Progress Note Patient was [...] be monitored and followed by the diet blood bank technician. * Sd Moreno PA-C - 05/29/2021 [...] Moreno PA-C Orthopedic Surgery * Arabella Dai COMMODITY BUYER - 05/29/2021 3:12 PM EDT Physical Therapy Facility/Department: [facility] Daily Treatment Note NAME: Albin Issa [...] 10 reps G-Code OutComes Score AM-PAC Score [facility] Inpatient Mobility Raw Score : 8 [...] off at this time. Please page resident general production worker with any questions or concerns. Rafy Gloria MD Orthopaedic Surgery PGY-1 *[phone] * Hamilton Mckinnon APRN - NP - [...] happened the patient was bending down to worm picker a delivery box when his Rolatorgot [...] Sd Moreno PA-C 3.125 mg at 05/27/21 1754 clopidogrel (PLAVIX) tablet 75 mg 75 mg Oral Daily Sd Moreno PA-C 75 mg at 05/27/21 0914 escitalopram (LEXAPRO) tablet 20 mg 20 mg Oral Daily Sd Moreno PA-C 20 mg at 05/27/21913 gabapentin (NEURONTIN) capsule 300 mg 300 mg Oral Nightly Sd Moreno PA-C 300 mg at 05/27/212008 isosorbide mononitrate (IMDUR) extended release tablet 60 mg 60 mg Oral BID Sd Moreno PA-C 60 mg at 05/27/212008 cetirizine (ZYRTEC) tablet [...] Daily Sd Moreno PA-C 40 mEq at 05/27/21913 ramipril (ALTACE) capsule [...] day Sd Moreno PA-C 1,000 mg at 05/28/21 0532 oxyCODONE (ROXICODONE) [...] Date 05/28/21 0000 - 05/28/21 2359 Shift 6433-2416 1822-0716 7073-7206 24 Hour Total INTAKE P.O. 200 200 Shift Total(mL/kg) 200(1.6) 200(1.6) OUTPUT Urine(mL/kg/hr) 800 800 Shift Total(mL/kg) 800(6.3) 800(6.3) Weight (kg) 126.1 126.1 126.1 126.1 Last BM: COMMODITY BUYER Diet: Reg CVP: No Chest Tubes: R: [...] Radiology ACCESSION EXAM DATE/TIME PROCEDURE ORDERING PROVIDER [id number] 05/24/2021 17:43 EDT CR Humerus 2+ Views [id number] -SD MORENO CPT code 78230 Reason For Exam (CR Humerus 2+ Views [...] Radiology ACCESSION EXAM DATE/TIME PROCEDURE ORDERING PROVIDER [id number] 05/24/2021 05:59 EDT CR Elbow 3+ Views Left MD FONTANA ALEX CPT code 81920 Reason For Exam (CR Elbow 3+ Views [...] Radiology ACCESSION EXAM DATE/TIME PROCEDURE ORDERING PROVIDER [id number] 05/24/2021 05:59 EDT CR Chest 1 View Frontal MD FONTANA ALEX CPT code 97627 Reason For Exam (CR Chest 1 View [...] (HCC) 05/29/2021 Yes I personally supervised the TIE BUYER/PA-C in the evaluation and development of a [...] MD Division of Trauma Department of Surgery [facility] Pager: [phone] ~~~~~~~~~~~~~~~~~~~~~~~~~~~~~~~~~~~~~~~~~~~~~~~~~~~~~~~~~~~~~ This note may have been dictated using [employer] Edition 2.6 and/or [employer] Voice Recognition Feature. The document was proofread; however, unrecognized voice recognition shoe maker errors may be present. * Ruma Ahuja, COMMODITY BUYER - 05/27/2021 12:30 PM EDT Physical Therapy Facility/Department: [facility] Daily Treatment Note NAME: Albin Issa [...] Worked on standing posture and placing RUE telegraphic service dispatcher on center handle of hemiwalker and keeping LUE tucked to abdomen. Exercises Hip Flexion: LLE x 10 reps Knee Long Arc Quad: LLE x 10 reps Ankle Pumps: LLE x 10 reps Comments: all while seated in recliner AM-PAC Score [facility] Inpatient Mobility Raw Score : 8 (05/27/21 [...] Ahuja PTA * Hamilton Mckinnon APRN - ANIMAL GENETICIST - 05/27/2021 6:26 AM EDT Images from the original note were not included. Daily Trauma Progress Note Nurse Practitioner 05/27/2021 6:26 AM Admit Date: 05/23/2021 Post Trauma Day 4 Fall SH HISTORY OF TRAUMATIC EVENT: 66 y.o. male status post fall from standing. The incident happened around afternoon on 05/23/21 at home. When the event happened the patient was bending down to worm picker a delivery box when his Rolatorgot [...] mg 40 mg Oral BID MARISELA Balderrama ANIMAL GENETICIST 40 mg at 05/26/21 161 enoxaparin (LOVENOX) injection 30 mg 30 mg Subcutaneous BID MARISELA Croft FINANCIAL ADMINISTRATION OFFICER 30 mg at 05/26/212212 atorvastatin (LIPITOR) tablet 40 mg 40 mg Oral Nightly MIKA Del Cid-C 40 mg at 05/26/212201 buPROPion (WELLBUTRIN SR) extended release tablet 150 mg 150 mg Oral BID MIKA Del Cid-C 150 mgat 05/26/21 220 carvedilol (COREG) tablet [...] Oral BID Sd Moreno PA-C 1,000 mgat 05/26/21 2202 sodium chloride flush [...] Sd Moreno PA-C 8.6 mg at 05/26/21 2202 polyethylene glycol (GLYCOLAX) packet 17 g 17 g Oral Daily Sd Moreno PA-C 17 g at 05/26/21 0951 docusate sodium (COLACE) capsule 100 mg 100 mg Oral BID Sd Moreno PA-C 100 mg at 05/26/21 2202 LORazepam (ATIVAN) tablet 0.5 mg 0.5 mg Oral Nightly PRN Renny Biswas MD 0.5 mg at 05/25/21 9257 ARE THERE PERTINENT UPDATES TO PAST,FAMILY, OR [...] Date 05/27/21 0000 - 05/27/21 2359 Shift 5300-5365 7009-0159 8855-2563 24 Hour Total INTAKE P.O. 350 350 Shift Total(mL/kg) 350(2.8) 350(2.8) OUTPUT Urine(mL/kg/hr) 750 750 Shift Total(mL/kg) 750(5.9) 750(5.9) Weight (kg) 126.1 126.1 126.1 126.1 Last BM: COMMODITY BUYER Diet: Reg CVP: No Chest Tubes: R: [...] VIEWS) Result Date: 05/24/2021 Patient [facility]: [id number] Radiology ACCESSION EXAM DATE/TIME PROCEDURE ORDERING PROVIDER [id number] 05/24/2021 17:43 EDT CR Humerus 2+ Views [id number] -SD MORENO CPT code 31581 Reason For Exam (CR Humerus 2+ Views [...] Result Date: 05/24/2021 [id number] Diagnostic Radiology ACCESSION EXAM DATE/TIME PROCEDURE ORDERING PROVIDER [id number] 05/24/2021 05:59 EDT CR Elbow 3+ Views Left MD FONTANA ALEX CPT code 24915 Reason For Exam (CR Elbow 3+ Views [...] Result Date: 05/24/2021 [id number] Radiology ACCESSION EXAM DATE/TIME PROCEDURE ORDERING PROVIDER [id number] 05/24/2021 05:59 EDT CR Chest 1 View Frontal MD FONTANA ALEX CPT code 10094 Reason For Exam (CR Chest 1 View [...] pain 05/25/2021 Yes I personally supervised the TIE BUYER/ROMEL in the evaluation and development of a [...] MD Division of Trauma Department of Surgery [facility] Pager: [phone] ~~~~~~~~~~~~~~~~~~~~~~~~~~~~~~~~~~~~~~~~~~~~~~~~~~~~~~~~~~~~~ This note may have been dictated using [employer] Edition 2.6 and/or [employer] Voice Recognition Feature. The document was proofread; however, unrecognized voice recognition shoe maker errors may be present. * Arabella Dai, COMMODITY BUYER - 05/26/2021 1:30 PM EDT Physical Therapy Facility/Department: [facility] Daily Treatment Note NAME: Albin Issa [...] before returning to supine in bed G-Code [facility] Score -[facility] Inpatient Mobility Raw Score : 10 (05/26/211331) [facility] Inpatient T-Scale Score : 32.29 (05/26/211331) [...] Moreno PA-C Orthopedic Surgery * Rick Leyva AUTOMATION TECH - 05/26/2021 9:14 AM EDT Occupational Therapy Facility/Department: [facility] Daily Treatment Note NAME: Albin Issa [...] sit: Moderate assistance Cognition Overall Cognitive Status: [facility] Cognition Comment: Pt. continues to insists that [...] happened the patient was bending down to worm picker a delivery box when his Rolatorgot [...] Nightly Sd Josh, PA-C 40 mg at 05/25/212099 buPROPion (WELLBUTRIN SR) extended release tablet 150 mg 150 mg Oral BID Sd Josh, PA-C 150 mgat 05/25/212112 carvedilol (COREG) tablet 3.125 mg 3.125 mg Oral BID WC Sd Josh, PA-C 3.125 mg at 05/25/211742 clopidogrel (PLAVIX) tablet 75 mg 75 mg Oral Daily Sd Josh, PA-C 75 mg at 05/25/21 09 escitalopram (LEXAPRO) tablet 20 mg 20 mg Oral Daily Sd Josh, PA-C 20 mg at 05/25/21 075 furosemide [...] Daily Sd Josh, PA-C 10 mg at 05/25/21 075 [Held by provider] meloxicam (MOBIC) tablet 15 mg 15 mg Oral Daily Sd Josh, PA-C niacin (NIASPAN) extended release tablet 1,000 mg 1,000 mg Oral Nightly Sd Josh, PA-C 1,000 mg at 05/25/212100 potassium chloride (KLOR-CON M) extended release tablet 40 mEq 40 mEq Oral Daily Sd Josh, PA-C 40 mEq at 05/25/21 0754 ramipril (ALTACE) capsule 2.5 mg 2.5 mg Oral Daily MIKA Del Cid-C 2.5 mg at 05/25/21 0907 ranolazine (RANEXA) extended release tablet 1,000 mg 1,000 mg Oral BID JANICE Del CidC 1,000 mgat 05/25/212099 sodium chloride flush 0.9 % injection 5-40 mL 5-40 mL Intravenous 2 times per day MIKA Del Cid-C 10 mL at 05/25/212113 sodium chloride flush [...] PRN JANICE Del CidC 10 mg at 05/25/212058 ondansetron (ZOFRAN) injection [...] MIKA Del Cid-C 100 mg at 05/25/21 075 LORazepam (ATIVAN) tablet 0.5 mg 0.5 mg [...] Date 05/26/21 0000 - 05/26/21 2359 Shift 4882-6258 9389-8811 8940-4662 24 Hour Total INTAKE Shift Total(mL/kg) OUTPUT Urine(mL/kg/hr) 800 800 Shift Total(mL/kg) 800(6.3) 800(6.3) Weight (kg) 126.1 126.1 126.1 126.1 Last BM: COMMODITY BUYER Diet: Reg CVP: No Chest Tubes: R: [...] Radiology ACCESSION EXAM DATE/TIME PROCEDURE ORDERING PROVIDER [id number] 05/24/2021 17:43 EDT CR Humerus 2+ Views [id number] NORWOOD CPT code 56476 Reason For Exam (CR Humerus 2+ Views [...] Radiology ACCESSION EXAM DATE/TIME PROCEDURE ORDERING PROVIDER [id number] 05/24/2021 05:59 EDT CR Elbow 3+ Views Left MD FONTANA ALEX CPT code 57394 Reason For Exam (CR Elbow 3+ Views [...] Radiology ACCESSION EXAM DATE/TIME PROCEDURE ORDERING PROVIDER [id number] 05/24/2021 05:59 EDT CR Chest 1 View Frontal MD FONTANA ALEX CPT code 75993 Reason For Exam (CR Chest 1 View [...] pain 05/25/2021 Yes I personally supervised the TIE BUYER/JANICEC in the evaluation and development of a [...] MD Division of Trauma Department of Surgery [facility] Pager: [phone] ~~~~~~~~~~~~~~~~~~~~~~~~~~~~~~~~~~~~~~~~~~~~~~~~~~~~~~~~~~~~~ This note may have been dictated using [employer] Edition 2.6 and/or [employer] Voice Recognition Feature. The document was proofread; however, unrecognized voice recognition shoe maker errors may be present. * Carol Ascencio MD - 05/26/2021 6:34 AM EDT Images from the original note were not included. [facility] H[address] TELEMETRY [address] [place] [id number] Dept: [phone] Loc: [phone] Orthopedic Progress Note Name: Albin Issa Date:05/26/2021 [...] Independent (with lift chair) Mode of Transportation: [facility] Occupation: Retired Additional Comments: Patient states his [...] being NWB LUE Perception Overall Perceptual Status: WF Sensation Overall Sensation Status: Impaired (Numbness to [...] distally LUE Strength LUE Strength Comment: 3/5 telegraphic service dispatcher RUE Strength RUE Strength Comment: 3-/5 shoulder, 4/5 telegraphic service dispatcher Plan Plan Times per week: 5 Plan weeks: 4 Current Treatment Recommendations: Strengthening, Gait Training, Patient/Caregiver Education & Training, Equipment Evaluation, Education, & procurement, ROM, Balance Training, Functional Mobility Training, Endurance Training, Safety Education & Training, Self-Care / ADL, Pain Management, Stair training OutComes Score [facility] Daily Activity Inpatient How much help for [...] How much help for eating meals?: None [facility] Inpatient Daily Activity Raw Score: 16 [facility] Inpatient ADL T-Scale Score : 35.96 [...] Plan of [facility]. Pt requires skill of 2 therapists for safety and positioning. Carlita Lira/OT * Maria L Jeffers, PT - 05/25/2021 11:07 AM EDT Physical Therapy Facility/Department: [facility] TELEMETRY Initial Assessment NAME: Albin Issa : [...] Subjective: Patient lying in bed upon arrival, skilled nursing facility counselor finishing assessing vitals. Patient pleasant and agreeable [...] transferred to [facility] Rehab Department Physical Therapist. * Kacy Soto DTR - 05/25/2021 8:40 AM EDT Nutrition rescreen completed. Chart reviewed. Patient to be monitored and followed by the diet blood bank technician. * Stephanie Ying APRN - CNP - 05/25/2021 6:23 AM EDT Images from the original note were not included. Daily Trauma Progress Note Nurse Practitioner 05/25/2021 6:23 AM Admit Date: 05/23/2021 Post Trauma Day 2 Fall SH HISTORY OF TRAUMATIC EVENT: 66 y.o. male status post fall from standing. The incident happened around afternoon on 05/23/21 at home. When the event happened the patient was bending down to worm picker a delivery box when his Rolatorgot [...] Nightly MIKA Del Cid-C 40 mg at 05/24/212204 buPROPion (WELLBUTRIN SR) extended release tablet 150 mg 150 mg Oral BID MIKA Del Cid-C 150 mgat 05/24/212204 carvedilol (COREG) tablet 3.125 [...] Daily Sd Moreno PA-C 40 mEq at 05/24/21 0931 ramipril (ALTACE) capsule 2.5 mg 2.5 mg Oral Daily Sd Moreno PA-C 2.5 mg at 05/24/21 0941 ranolazine (RANEXA) extended release tablet 1,000 mg 1,000 mg Oral BID Sd Moreno PA-C 1,000 mgat 05/24/21 2204 sodium chloride flush 0.9 % injection 5-40 [...] Temporal 63 18 97 % Last BM: COMMODITY BUYER Diet: Reg CVP: No Chest Tubes: R: [...] Radiology ACCESSION EXAM DATE/TIME PROCEDURE ORDERING PROVIDER [id number] 05/24/2021 17:43 EDT CR Humerus 2+ Views [id number] -SD MORENO CPT code 45383 Reason For Exam (CR Humerus 2+ Views [...] Radiology ACCESSION EXAM DATE/TIME PROCEDURE ORDERING PROVIDER [id number] 05/24/2021 05:59 EDT CR Elbow 3+ Views Left MD RAYA, JUAN ALBERTO CPT code 69238 Reason For Exam (CR Elbow 3+ Views [...] Radiology ACCESSION EXAM DATE/TIME PROCEDURE ORDERING PROVIDER [id number] 05/24/2021 05:59 EDT CR Chest 1 View Frontal MD FONTANA ALEX CPT code 77714 Reason For Exam (CR Chest 1 View [...] cardiomyopathy 05/25/2021 Yes I personally supervised the TIE BUYER/MIKA-Sen in the evaluation and development of a [...] MD Division of Trauma Department of Surgery [facility] Pager: [phone] ~~~~~~~~~~~~~~~~~~~~~~~~~~~~~~~~~~~~~~~~~~~~~~~~~~~~~~~~~~~~~ This note may have been dictated using [employer] Edition 2.6 and/or [employer] Voice Recognition Feature. The document was proofread; however, unrecognized voice recognition shoe maker errors may be present. * Carol Ascencio MD - 05/25/2021 6:15 AM EDT Images from the original note were not included. [facility] H[facility] TELEMET[facility] [address] [facility] [address] Dept: [phone] Loc: [phone] Orthopedic Progress Note Name: Albin Issa Date:05/25/2021 [...] EDT Patient to be transported back to [facility]. Telephone report given to JUANCHO Wells [...] right wrist pre op * Maria L Jeffers, PT - 05/24/2021 1:07 PM EDT Orders received, chart review performed. Spoke with nurse who reports patient was just taken to OR for possible ORIF. Will re-attempt tomorrow. * Ahmet, Frank Bone MD - 05/24/2021 6:22 AM EDT Name: [...] eGFR 88.3 >60 mL/min EGFR IF NonAfrican Monegasque 76.2 >60 mL/min Calcium 9.3 8.4 - [...] # 1.3 1.0 - 4.3 10*3/uL Absolute Humphreys # 0.5 0.0 - 0.8 10*3/uL Absolute [...] team -Ortho to follow documented in this [facility] Work Phone: 1(261) 601-971106-30-2021 Hospital Discharge instructions* Discharge Instr - Activity* [...] at most local grocery stores, pharmacies, and [employer]-stores. If you have any questions about your [...] Agent's Name Healthcare Agent's Phone Number 05/24/21 [phone] No, patient does not have an advance directive for healthcare treatment -- -- -- -- -- Admitting Physician: Roni Figueroa MD PCP: SPEEDY BOSWELL MD Discharging Nurse: Discharging Hospital Unit/Room#: 6111/375464 Discharging Unit Phone Number: Emergency Contact: Extended Emergency Contact Information Primary Emergency Contact: Maddy Issa [facility] Relation: Lay Caregiver Past Surgical History: [...] M16.12 S/P AKA (above knee amputation), right ([facility]) Z89.611 MRSA (methicillin resistant Staphylococcus aureus) [...] (126.1 kg) Mental Status: {IP PT MENTAL STATUS:60660:::0} IV Access: { MICHAELA IV ACCESS:239428041:::0} Nursing Mobility/ADLs: Walking {[facility] DME ADLs:504951881:::0} Transfer {[facility] DME ADLs:463434475:::0} Bathing {CHP DME ADLs:956657814:::0} Dressing {CHP DME ADLs:396040181:::0} Toileting {CHP DME ADLs:767017394:::0} Feeding {[facility] DME ADLs:399953082:::0} Silica Spray Mixer {CHP DME ADLs:080928344:::0} Med Delivery { MICHAELA MED Delivery:557718497:::0} Wound Care Documentation and Therapy: Negative Pressure Wound Therapy Leg Right;Upper (Active) Number of days: 762 Elimination: Continence: Bowel: {YES / NO:} Bladder: {YES / NO:} Urinary Catheter: {Urinary Catheter:017628030:::0} Colostomy/Ileostomy/Ileal Conduit: {YES / NO:} Date of Last BM: No intake or output data in the 24 hours ending 05/25/21 1230 No intake/output data recorded. Safety Concerns: { MICHAELA Safety Concerns:977270001:::0} Impairments/Disabilities: { MICHAELA Impairments/Disabilities:366211236:::0} Nutrition Therapy: Current Nutrition Therapy: { MICHAELA Diet List:516926339:::0} Routes of Feeding: {CHP DME Other Feedings:872637742:::0} Liquids: {Hearing Aid Technician liquid thickness:67461} Daily Fluid Restriction: {CHP DME Yes amt example:352806890:::0} Last Modified Barium Swallow with Video (Video Swallowing Test): {Done Not Done Date:051985073:::0} Treatments at the Time of Hospital Discharge: Respiratory Treatments: Oxygen Therapy: {Therapy; copd oxygen:95457:::0} Ventilator: { CC Vent List:913951964:::0} Rehab Therapies: {THERAPEUTIC INTERVENTION:5527883695} Weight Bearing Status/Restrictions: { CC Weight Bearin:::0} Other Medical Equipment (for information only, NOT a DME order): {EQUIPMENT:157478755} Other Treatments: Patient's personal belongings (please select all that are sent with patient): {CHP DME Belongings:222491491:::0} RN SIGNATURE: {Esignature:116274990:::0} CASE MANAGEMENT/SOCIAL WORK SECTION Inpatient Status Date: 05-23-21 Readmission Risk Assessment Score: Readmission Risk Risk of Unplanned Readmission: 10 Discharging to Facility/ Agency Name: [facility] Address:[address] [place] [address] Dialysis Facility (if applicable) Name: Address: Dialysis Schedule: Phone: Fax: Office Service Coordinator/Automotive Fuel Injection Servicer signature: PHYSICIAN SECTION Prognosis: Good Condition at Discharge: Stable Rehab Potential (if transferring to Rehab): Good Recommended Labs or Other Treatments After Discharge: None Physician Certification: I certify the above information and transfer of Albin Issa is necessary for the continuing treatment of the diagnosis listed and that he requires Group Home Facility for less 30 days. Update [...] have anyproblems or questions. documented in this [facility] Work Phone: 1(575) 611-417108-02-2017 Fall risk iadmfembej0492/08/02[facility] NoFall [facility]Wselect [facility] Work Phone: 1(865) 640-520607-14-2017 Fall risk lgupmrxqcw1305/07/14[facility]ALLRSKAL[facility]FA[facility] NoFall risk assessmentWselect [facility] hospital [facility] Work Phone: 1(528) 898-366406-14-2017 Fall risk kobwtuhqiv7620/06/14[facility]ALLKAL[facility] NoFall risk assessmentWselect [facility] hospital Infectious Disease Work Phone: 1(678) 200-228205-31-2017 Fall risk kiljtagyus9395/05/31[facility]ALLKALAFAY[facility] NoFall risk assessmentWselect [facility] hospital [facility] Disease Work Phone: 1(293) 304-269909-01-2010 Evaluation note* Diagnosis Onset Date Resolution Status Atherosclerotic heart diseas e of [place] coronary artery without angina pectoris chronic Chronic systolic congestive heart failure chronic Essential hypertension chron ic ICD (implantable cardioverte r-defibrillator) in place August, chronic Ischemic cardiomyopathy [facility] Mixed hyperlipidemia chronic Postsurgical aortocoronary bypass status June, chronic Automatic implantable cardio verter-defibrillator in situ chronic Chronic systolic congestive heart failure chronic 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 cardiomyopathy 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 [facility] Work Phone: [phone]) 622-185409-01-2010 Evaluation note* Diagnosis Onset Date Resolution Status Atherosclerotic heart diseas e of [place] coronary artery without angina pectoris chronic Chronic systolic congestive heart failure chronic Essential hypertension chron ic ICD (implantable cardioverte r-defibrillator) in place August, chronic Ischemic cardiomyopathy 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 Mixed hyperlipidemia chronic Postsurgical aortocoronary bypass status June, chronic Automatic implantable cardio verter-defibrillator in situ chronic Chronic systolic congestive heart failure chronic Ischemic cardiomyopathy 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 Automatic implantable cardio verter-defibrillator in situ chronic Chronic systolic congestive heart failure chronic ICD (implantable cardioverte r-defibrillator) in place August, chronic 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 cardiomyopathy 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 [facility] Work Phone: [phone] 570-111009-01-2010 Evaluation note* Diagnosis Onset Date Resolution Status Automatic implantable cardio verter-defibrillator in situ chronic Chronic systolic congestive heart failure chronic ICD (implantable cardioverte r-defibrillator) in place August, chronic 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 cardiomyopathy 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 [facility] Work Phone: [phone]) 904-901409-01-2010 Evaluation note* Diagnosis Onset Date Resolution Status Automatic implantable cardio verter-defibrillator in situ chronic ICD (implantable cardioverte r-defibrillator) in place August, chronic 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 cardiomyopathy 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 [facility] Work Phone: [phone]) 442-457209-01-2010 Evaluation note* Diagnosis Onset Date Resolution Status Chronic systolic congestive heart failure chronic ICD (implantable cardioverte r-defibrillator) in place August, chronic 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 cardiomyopathy 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 CAD (coronary artery disease) chronic Essential hypertension chron ic ICD (implantable cardioverte r-defibrillator) in place August, chronic 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 cardiomyopathy 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 Mixed hyperlipidemia chronic Obesity (BMI 30-39.9) chroni c [facility] Work Phone: 1([phone]) 918-144109-01-2010 Evaluation note* Diagnosis Onset Date Resolution Status CAD (coronary artery disease) chronic Essential hypertension chron ic ICD (implantable cardioverte r-defibrillator) in place August, chronic Ischemic cardiomyopathy October, ch ronic Mixed hyperlipidemia chronic Obesity (BMI 30-39.9) chroni c CAD (coronary artery disease) chronic ICD (implantable cardioverte r-defibrillator) in place August, [facility] Work Phone: [phone]) 150-262309-01-2010 Evaluation note* Diagnosis Onset Date Resolution Status CAD (coronary artery disease) chronic ICD (implantable cardioverte r-defibrillator) in place August, [facility] Work Phone: [phone]) [phone] Evaluation note* Diagnosis Onset Date Resolution Status [...] (BMI 30-39.9) chronic Sly e 2024 2:00pm [facility] Work Phone: Evaluation note* Diagnosis Acute traumatic pain- Primary Acute pain due to trauma Closed fracture of lower epiphysis of humerus Closed fracture of unspecified condyle(s) of humerus Left supracondylar humerus fracture, closed, initial encounter Ischemic cardiomyopathy Other specified forms of chronic ischemic heart disease Chronic systolic congestive heart failure (HCC) Chronic systolic heart failure [facility] Work Phone: Evaluation note* Diagnosis Onset Date Resolution Status Lateral epicondylitis of left elbow acute Left elbow pain acute Atherosclerotic heart diseas e of [place] coronary artery without angina pectoris chronic Chronic systolic congestive heart failure chronic Essential hypertension chron ic ICD (implantable cardioverte r-defibrillator) in place August, chronic Ischemic cardiomyopathy 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 Mixed hyperlipidemia chronic Postsurgical aortocoronary bypass status June, chronic Automatic implantable cardio verter-defibrillator in situ chronic Chronic systolic congestive heart failure chronic Ischemic cardiomyopathy 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 [facility] Work Phone: Evaluation note* Diagnosis Arthritis of left subtalar joint documented in this encounter [facility]* Diagnosis ICD (implantable cardioverter-defibrillator) battery depletion Pacemaker lead malfunction Mechanical complication due to cardiac pacemaker (electrode) ICD (implantable cardioverter-defibrillator) battery depletion [facility] Diagnosis Arthritis of left subtalar joint documented in this encounter [facility]* Diagnosis Arthritis of left subtalar joint documented in this encounter [facility] Discharge instructions Additional Instructions You have a virus. Plenty of fluids and rest. Prednisone as needed for wheezing. Follow-up with your doctor if not improving or return if worse.[facility] Work Phone: Hospital Discharge instructions Additional Instructions Cardiac workup including D-dimer negative. Chest x-ray negative. BNP normal. Continue your home medications. Follow-up with your cardiology team for treatment as plan. You develop recurrent worsening symptoms, return to the ED for reevaluation.[facility] Work Phone: Reason for referral (narrative)No reason for referral information availableOjai Valley Community Hospital Work Phone: Summary Purpose Family History [...] FoundDocuments on File Type Date Recorded Patient Band Tacker Expl anation ACP-Advance Directive ACP-Power of Rn Surgical Pcu Latest Code Status on File Code Status [...] Will Yes January 15 11:11pm Power of Rn Surgical Pcu Yes January 15, 2022 11:11pm Advance Directive Response Recorded Date/ Time Advance Directives No December 31, 2015 6:47pm Living Will Yes January 15 10:11pm Power of Rn Surgical Pcu Yes January 15, 2022 10:11pm Advance Directive Response Recorded Date/ Time Name of Medical Power of Rn Surgical Pcu DAUGHTER AND S ON October 27, 2022 4:09pm Advance Directives No December 31, 2015 6:47pm Living Will Yes October 27, 022 4:09pm Power of Rn Surgical Pcu Yes October 27, 2022 4:09pm Advance Directive Response Recorded Date/ Time Advance Directives No December 31, 2015 7:47pm Living Will Yes October 27, 022 5:09pm Power of Rn Surgical Pcu Yes October 27, 2022 5:09pm Latest Code [...] Will Yes October 27, 4:09pm Power of Rn Surgical Pcu Yes October 27, 2022 4:09pm Advance Directive Response Recorded Date/ Time Living Will Yes October 27 5:09pm Do you have a Healthcare Power of Rn Surgical Pcu? Yes October 27, 2022 5:09pm Advance Directives No December 31, 2015 7:47pm Advance Directive Response Recorded Date/ Time Living Will Yes October 27 5:09pm Do you have a Healthcare Power of Rn Surgical Pcu? Yes October 27, 2022 5:09pm Do you have a Healthcare Power of Rn Surgical Pcu? No May 09, 2025 12:06am Advance Directives No December 31, 2015 7:47pm Advance Directive Response Recorded Date/ Time Do you have a Healthcare Power of Rn Surgical Pcu? No May 09, 2025 12:06am Advance Directives No December 31, 2015 7:47pm Chief Complaint and Reason for Visit Chief Complaint flank pain sees JEFFRY@2:30 PRE-OP EORDER- ANKLE EORDER Reason for Visit Atherosclerotic hear t disease of [place] coronary artery without angina pectoris Chronic systolic congestive heart failure Essential hypertension ICD (implantable cardioverter-defibrillator) in place Ischemic cardiomyopathy Mixed hyperlipidemia Postsurgical aortocoronary bypass status Automatic implantable cardioverter-defibrillator in situ Chronic systolic congestive heart failure Ischemic cardiomyopathy Chief Complaint sees JEFFRY@2:30 PRE-OP EORDER- ANKLE EORDER 3 MO CK LT ANKLE OSTEOARTHRITIS Reason for Visit Atherosclerotic hear t disease of [place] coronary artery without angina pectoris Chronic systolic [...] Left elbow pain Atherosclerotic heart disease of [place] coronary artery without angina pectoris Chronic systolic [...] Left elbow pain Atherosclerotic heart disease of [place] coronary artery without angina pectoris Chronic systolic [...] Complaint Admit Date Pacer Check Remote February 18, 2025 2:0 0am 6 M FU May 03, 2025 2:00p m chest pain May 09, 2025 12:01 am PE PROTOCOL May 12, 2025 2:54 pm Pacer Check Remote May 20, 2025 2:00 am CAD ASHD June 10, 2025 6:58 am CAD ASHD June 10, 2025 11:2 1am Chief Complaint Admit Date 6 M FU May 03, 2025 2:00p m chest pain May 09, 2025 12:01 am PE PROTOCOL May 12, 2025 2:54 pm Pacer Check Remote May 20, 2025 2:00 am CAD ASHD June 10, 2025 6:58 am CAD ASHD June 10, 2025 11:2 1am BILATERAL WRISTS June 24, 2025 2:33 pm Reason for Visit Admit Date CAD (coronary artery disease) May 03, 2025 2:00pm Essential hypertension May 03, 2025 2: 00pm ICD (implantable cardioverter-defibrilla tor) in place May 03, 2025 2:00pm Ischemic cardiomyopathy May 03, 2025 2 :00pm Mixed hyperlipidemia May 03, 2025 2:00 pm Obesity (BMI 30-39.9) May 03, 2025 2:0 0pm De Quervain's disease (radial styloid te nosynovitis) June 24, 2025 2:33pm Reason for Referral Specialty Diagnoses / Procedures Referred By Contdipak t Referred To Contact Procedures PACEMAKER/ICD INTERROGATION David Ramirez MD [address] [place] [phone] Referral ID Status Reason Start Date Expiration Date V isits Requested Visits Authorized [id number] New Request 01/06/2024 01/30/2025 1 1 Specialty Diagnoses / Procedures Referred By Contac t Referred To Contact Procedures NO PHARMACOLOGICAL DVT PROPHYLAXIS Rosio Douglass, TIE BUYER-FINANCIAL ADMINISTRATION OFFICER [address] [place] [phone] Referral ID Status Reason Start Date Expiration Date V isits Requested Visits Authorized [id number] New Request 01/06/2024 01/30/2025 1 1 Specialty Diagnoses / Procedures Referred By Contac t Referred To Contact Procedures DVT/VTE RISK ASSESSMENT Rosio Douglass, TIE BUYER-FINANCIAL ADMINISTRATION OFFICER [address] [place] [phone] Referral ID Status Reason Start Date Expiration Date V isits Requested Visits Authorized [id number] New Request 01/06/2024 01/30/2025 1 1 Specialty Diagnoses / Procedures Referred By Contac t Referred To Contact Procedures ECG Wilda Hinojosa, TIE BUYER-FINANCIAL ADMINISTRATION OFFICER [address] [place] [phone] Referral ID Status Reason Start Date Expiration Date V isits Requested Visits Authorized [id number] New Request 01/06/2024 01/30/2025 1 1 Additional Source Comments (unrecognized sect ion and content) No Status Records FoundNo Status Records FoundNo Status Records FoundNo Status Records FoundNo Status Records FoundNo Status Records FoundNo Status Records Found INFORMATION SOURCE (unrecogn ized section and content) DATE CREATED AUTHOR 04/20/2020 [facility] DATE CREATED AUTHOR AUTHOR'S ORGANIZ ATION 06/02/2021 [facility] [employer] DATE CREATED AUTHOR AUTHOR'S ORGANIZ ATION 06/11/2021 [facility] [employer] DATE CREATED AUTHOR AUTHOR'S ORGANIZ ATION 03/09/2022 [facility] DATE CREATED AUTHOR AUTHOR'S ORGANIZ ATION 01/16/[address] [facility] DATE CREATED AUTHOR AUTHOR'S ORGANIZ ATION 03/31/2024 [facility] DATE CREATED AUTHOR AUTHOR'S ORGANIZ ATION 06/24/2025 [facility] Ordered Prescriptions (unrec ognized section [...] RN)1621 (Given - Provider: Mary Anne Husain RN)2100 (Given - Provider: María Henry RN) 0517 (Given - Provider: María Henry RN)1607 (Not Given - Provider: Haylee Abdullahi RN - Reason: Patient/family refused)1948 (Given - Provider: Kenan Jacobsen RN) 0600 (Due)1400 (Due)2200 (Due) aspirin EC tablet 81 mg 81 mg, Oral, DAILY, First dose on Sat05/24/21 at 0900, Do not crush or break. 0910 (Given - Provider: Mary Anne Husain RN) 0922 (Given - Provider: Haylee Abdullahi, JUANCHO) 09 (Due) atorvastatin (LIPITOR) tablet 40 mg 40 mg, Oral, NIGHTLY, First dose on Sat05/24/21 at 2100 2013 (Given - Provider: María Henry RN) 1946 (Given - Provider: Kenan Jacobsen RN) 2099 [...] RN) 921 (Given - Provider: Haylee Abdullahi, JUANCHO)1947 (Given - Provider: Kenan Jacobsen RN) 0900 (Due)2099 (Due) carvedilol (COREG) tablet 3.125 mg 3.125 mg, Oral, 2 TIMES DAILY WITH MEALS, First dose on Sat05/24/21 at 0800, Administer with food to minimize the risk of orthostatic hypotension 0910 (Given - Provider: Mary Anne Husain RN)162 (Given - Provider: Mary Anne Husain RN) 921 (Given - Provider: Haylee Abdullahi, JUANCHO)175 (Given - Provider: Haylee Abdullahi, JUANCHO) 0800 (Due)1700 (Due) cetirizine (ZYRTEC) tablet 10 mg 10 mg, Oral, DAILY, First dose on Sat05/24/21 at 0900, Substituted for Loratadine (CLARITIN). 09 (Given - Provider: Mary Anne Husain RN) 921 (Given - Provider: Haylee Abdullahi RN) 899 (Due) clopidogrel (PLAVIX) tablet 75 mg 75 mg, Oral, DAILY, First dose on Sat05/24/21 at 0900 0909 (Given - Provider: Mary Anne Husain RN) 921 (Given - Provider: Haylee Abdullahi RN) 899 (Due) docusate sodium (COLACE) capsule 200 mg 200 mg, Oral, 2 TIMES DAILY, First dose (after last modification) on Sat05/28/21 at 2100, Do not crush or break. 09 (Given - Provider: Mary Anne Husain [...] RN) 0922 (Given - Provider: Haylee Abdullahi RN)1758 (Given - Provider: Haylee Abdullahi RN) 0800 (Due)1730 (Due) gabapentin (NEURONTIN) capsule 300 mg 300 [...] RN)2013 (Given - Provider: María Henry RN) 09 (Given - Provider: Haylee Abdullahi RN)1946 (Given - Provider: Kenan Jacobsen RN) 09 (Due)2099 (Due) magnesium citrate solution 296 mL (COMPLETED) 296 mL, Oral, ONCE, On Sat05/30/21 at 1000, For 1 dose, Administer each dose with 8 oz (240 mL) of water. 1133 (Given - Provider: Mary Anne Husain RN) meloxicam (MOBIC) tablet 15 mg 15 mg, Oral, DAILY, First dose on Sat05/24/21 at 0900 0900 (Automatically Held) 0900 (Automatically Held) 0900 (Automatically Held) niacin (NIASPAN) extended release tablet 1,000 mg 1,000 mg, Oral, NIGHTLY, First dose on Sat05/24/21 at 2100, Do not crush or break. 2013 (Given - Provider: María Henry RN) 1948 (Given - Provider: Kenan Jacobsen RN) 2099 (Due) polyethylene glycol (GLYCOLAX) packet 17 g 17 g, Oral, 2 TIMES DAILY, First dose (after last modification) on Sat05/28/21 at 2100 0910 (Given - Provider: Mary Anne Husain RN)2012 (Not Given - Provider: María Henry RN - Reason: Patient/family refused) 09 (Given - Provider: Haylee Abdullahi RN)1949 (Given - Provider: Kenan Jacobsen RN) 899 (Due)2099 (Due) potassium chloride (KLOR-CON M) extended release tablet 40 mEq 40 mEq, Oral, DAILY, First dose on Sat05/24/21 at 0900, Do not crush, chew, or suck on tablet. Tablet may also be broken in half and each half swallowed separately. 09 (Given - Provider: Mary Anne Husain RN) 921 (Given - Provider: Haylee Abdullahi RN) 899 (Due) ramipril (ALTACE) capsule 2.5 mg 2.5 mg, Oral, DAILY, First dose on Sat05/24/21 at 0900 09 (Given - Provider: Mary Anne Husain RN) 925 (Given - Provider: Haylee Abdullahi RN) 899 (Due) ranolazine (RANEXA) extended release tablet 1,000 mg 1,000 mg, Oral, 2 TIMES DAILY, First dose on Sat05/24/21 at 0215, Do not crush or break. 908 (Given - Provider: Mary Anne Husain RN)2013 (Given - Provider: María Henry RN) 921 (Given - Provider: Haylee Abdullahi RN)1946 (Given - Provider: Kenan Jacobsen RN) 899 (Due)2099 (Due) senna (SENOKOT) tablet 17.2 [...] 0911 (Given - Provider: Mary Anne Husain, RN)2015 (Given - Provider: María Henry RN) 0926 (Given - Provider: Haylee Abdullahi RN)1950 (Not Given - Provider: Kenan Jacobsen RN - Reason: Loss of IV access) 0900 (Due)2100 (Due) PRN Medication Order 05/30/2021 05/31/2021 06/01/2021 [...] dose on Sat01/06/24 at 2100, Until Discontinued 2218 (Given - Provider: Jessie Mccoy RN) PRN Medication Order 01/05/2024 01/06/2024 [...] 1,500 mg, Intravenous, Administer over 1 Hours, 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 Vancomycin is preferred agent for device implants, based on national, community and local ([facility]) MRSA rates., Pre-op/Pre-Proc 0735 ($$New Bag$$ - Provider : Kala Arellano, JUANCHO) No Frequency Medication Order 01/05/2024 01/06/2024 01/07/2024 [...] Active Radha Sanches NP-C Attending Provider Active Group Sales Representative Relationship Specialty Start Date End Date Speedy Boswell MD [address] [facility] [address] [place] [phone] PCP - General 01/19/19 Team Status: Inactive Member Role Status Dates Dr. Speedy Boswell MD Primary Care Provider, Referring Provider Active Bethany Deng Attending Provider Active Team Status: Inactive Member Role Status Dates Dr. Speedy Boswell MD Primary Care Provider, Referring Provider Active Dr. Delilah Foster MD Attending Provider Active Team Status: Active Member Role Status Dates Dr. Speedy Boswell MD Primary Care Provider Active Dr. Delilah Foster MD Attending Provider , Referring Provider, Other Provider Active Team Status: Active Member Role Status Dates Dr. Speedy Boswell MD Primary Care Provider Active Jeffry Rosado NP ANIMAL GENETICIST-C Attending Provider Active Team Status: Inactive Member Role Status Dates Dr. Speedy Boswell MD Primary Care Provider Active Dr. Delilah Foster MD Attending Provider, Referring Pr ovider Active Group Sales Representative Relationship Specialty Start Date End Date Speedy Boswell MD [address] [facility] [address] [place], [place] [address] PCP - General Family Medicine 11/21/23 Delilah Foster MD [address] [facility] [address] [place], [place] [id number] Cardiovascular Disease 09/11/23 Group Sales Representative Relationship Specialty Start Date End Date Speedy Boswell MD [address] [place], [place] [phone] PCP - General Family Medicine 11/21/23 Delilah Foster MD [address] [facility] [address] [place] [address] Cardiovascular Disease 09/11/23 Team Status: Inactive Member [...] Cazares DO Attending Provider, Referring Provider Active Group Sales Representative Relationship Specialty Start Date End Date Speedy Boswell MD [address] [facility] [address] [place] [phone] PCP - General 01/19/19 Group Sales Representative Relationship Specialty Start Date End Date Speedy Boswell MD [address] [facility] [address] [place] [phone] PCP - General 01/19/19 Team Status: Active [...] 2025 End: May 03, 2025 Dr. Delilah Foster MD Attending Provider Active Start: May 03, [...] 2025 End: May 03, 2025 Dr. Delilah Foster MD Attending Provider Active Start: May 03, [...] May 20, 2025 End: May 20, 2025 Team Status: Inactive Member Role/Relationship Status [...] 03, 2025 End: May 03, 2025 Dr. Speeyd Boswell MD Referring Provider Active Start: May 03, 2025 End: May 03, 2025 Dr. Delilah Foster MD Attending Provider Active Start: May 03, [...] May 20, 2025 End: May 20, 2025 Team Status: Inactive Member Role/Relationship Status Dates Dr. Speedy Boswell MD Primary Care Provider Active Start: June 07, 2025 End: June 07, 2025 Dr. Speedy Boswell MD Attending Provider Active Start: June 07, 2025 End: June 07, 2025 Dr. Speedy Boswell MD Referring Provider Active Start: June 07, 2025 End: June 07, 2025 Team Status: Active Member Role/Relationship Status Dates Dr. Speedy Boswell MD Primary Care Provider Active Start: June 10, 2025 Dr. Delilah Foster MD Attending Provider Active Start: June 10, 2025 Dr. Delilah Foster MD Referring Provider Active Start: June 10, 2025 Team Status: Active Member Role/Relationship Status Dates Dr. Speedy Boswell MD Primary Care Provider Active Start: June 10, 2025 Dr. Delilah Foster MD Attending Provider Active Start: June 10, 2025 Dr. Delilah Foster MD Referring Provider Active Start: June 10, 2025 Dr. Delilah Foster MD Other Provider Active Star t: June 10, 2025 Team Status: Inactive Member Role/Relationship Status Dates Dr. Speedy Boswell MD Primary Care Provider Active Start: May 20, 2025 End: May 20, 2025 Dr. Ge Tomlinson MD Attending Provider Active S tart: May 20, 2025 End: May 20, 2025 Dr. Ge Tomlinson MD Referring Provider Active S tart: May 20, 2025 End: May 20, 2025 Team Status: Inactive Member Role/Relationship Status Dates Dr. Speedy Boswell MD Primary Care Provider Active Start: June 10, 2025 End: June 10, 2025 Dr. Delilah Foster MD Attending Provider Active Start: June 10, 2025 End: June 10, 2025 Dr. Delilah Foster MD Referring Provider Active Start: June 10, 2025 End: June 10, 2025 Team Status: Inactive Member Role/Relationship Status Dates Dr. Speedy Boswell MD Primary Care Provider Active Start: May 03, 2025 End: May 03, 2025 Dr. Speedy Boswell MD Referring Provider Active Start: May 03, 2025 End: May 03, 2025 Dr. Delilah Foster MD Attending Provider Active Start: May 03, [...] 2025 End: May 20, 2025 Dr. Ge Tomlnison MD Attending Provider Active S tart: May 20, 2025 End: May 20, 2025 Dr. Ge Tomlinson MD Referring Provider Active S tart: May 20, 2025 End: May 20, 2025 Team Status: Inactive Member Role/Relationship Status Dates Dr. Speedy Boswell MD Primary Care Provider Active Start: June 07, 2025 End: June 07, 2025 Dr. Speedy Boswell MD Attending Provider Active Start: June 07, 2025 End: June 07, 2025 Dr. Speedy Boswell MD Referring Provider Active Start: June 07, 2025 End: June 07, 2025 Team Status: Inactive Member Role/Relationship Status Dates Dr. Speedy Boswell MD Primary Care Provider Active Start: June 10, 2025 End: June 10, 2025 Dr. Delilah Foster MD Attending Provider Active Start: June 10, 2025 End: June 10, 2025 Dr. Delilah Foster MD Referring Provider Active Start: June 10, 2025 End: June 10, 2025 Team Status: Active Member Role/Relationship Status Dates Dr. Speedy Boswell MD Primary Care Provider Active Start: June 10, 2025 Dr. Delilah Foster MD Attending Provider Active Start: June 10, 2025 Dr. Delilah Foster MD Referring Provider Active Start: June 10, 2025 Dr. Delilah Foster MD Other Provider Active Star t: June 10, 2025 Team Status: Inactive Member Role/Relationship Status Dates Dr. Speedy Boswell MD Primary Care Provider Active Start: June 24, 2025 End: June 24, 2025 Dr. Speedy Boswell MD Referring Provider Active Start: June 24, 2025 End: June 24, 2025 Jm Anguiano MD Attending Provider Active St art: June 24, 2025 End: June 24, 2025 Reason for Visit (unrecogniz ed section and content) Reason Comments Follow-up [facility] left subtalar haile int injection Specialty Diagnoses / Procedures Referred By Contac t Referred To Contact Diagnoses Venous (peripheral) insufficiency Venous (peripheral) insufficiency [I87.2] Procedures IN INJECTION PROC,EXTREMITY,VENOGRAPHY VENOGRAM David Ramirez MD [address] [place] [phone] [facility] [address] [place] [address] Referral ID Status Reason Start Date Expiration Date Visits Re quested Visits Authorized [id number] 1 1 Specialty Diagnoses / Procedures Referred By Contac t Referred To Contact Diagnoses ICD (implantable cardioverter-defibrillator) battery depletion ICD (implantable cardioverter-defibrillator) battery depletion [Z45.02] Procedures IN RMVL IMPLTBL DFB PLSE GEN W/REPL PLSE GEN 1 LEAD IN INSJ 1 TRANSVNS ELTRD PERM PACEMAKER/IMPLTBL DFB ICD GENERATOR CHANGEOUT LEAD INSERTION Justin Pittman MD [address] [place] [phone] [facility] [address] [place] [phone] Referral ID Status Reason Start Date Expiration Date Visits Re quested Visits Authorized [id number] 1 1 Reason Comments Follow-up [facility] left [...] BE BASED ON THE PRIMARY CLINICAL RECORDS. [employer] provides no warranty or guarantee of the accuracy or completeness of information in this document.
== END | disposition home or self-care (01) ==
LOC: MTLAB 15:37
PROVIDERS: PCP Family Medicine; Referring Provider Nurse Practitioner Family; Visit Provider Nurse Practitioner Family
DX: R06.02 Shortness of breath (principal); I10 Essential (primary) hypertension; I25.5 Ischemic cardiomyopathy; I25.10 Atherosclerotic heart disease of native coronary artery without angina pectoris; Z95.5 Presence of coronary angioplasty implant and graft; Z95.1 Presence of aortocoronary bypass graft
CPT/HCPCS: 36415; 80048

== ENCOUNTER 2025-08-08 22:24 | Observation (INO) | payer MEDICARE, SELFPAY ==
[2025-08-08 22:25] VITALS: BP 120/94; PULSE 85; RESP 15; TEMP 36.1; O2SAT 98
[2025-08-08 22:53] VITALS: BMI 46.7
--- NOTE | 2025-08-08 23:00 | RAD_ITS ---
PROCEDURE: KNEE 4 OR MORE VIEWS 08/08/2025 REASON FOR EXAM: PAIN TECHNIQUE: Procedure Code: RADKN Modality: DX Procedure: KNEE 4 OR MORE VIEWS Laterality: COMPARISON: 06/29/2024. FINDINGS: No acute fracture or dislocation. Mild joint space narrowing in mild marginal osteophytosis is noted in all 3 compartments, similar to the previous study. Mild lateral tilting of the patella. No focal soft tissue swelling. RAD/Knee 4 or More Views IMPRESSION: As above. Reading Location: [id number]
[2025-08-08 23:06] LABS: Hematocrit 41.6 % (40-54); Hemoglobin 14.3 g/dL (13.0-16.5); Immature Granulocytes Count 0.040 X10^3/uL (0.0-0.0); Mean Corp Hgb Conc 34.4 g/dL (32-36); Mean Corpuscular Volume 90.2 fL (80-94); Mean Platelet Vol. 9.4 fl (6.2-12.0); NRBC Flagged by Analyzer 0 % (0-5); Platelet Count 154 K/mm3 (150-450); RBC Distribution Width CV 13.6 % (11.6-14.6); RBC Distribution Width SD 44.8 fl (35.1-43.9); Red Blood Count 4.61 M/mm3 (4.6-6.2); White Blood Count 6.2 K/mm3 (4.4-11.0)
--- NOTE | 2025-08-08 23:07 | EX.ED.DYSGE1 ---
HPI History of Present Illness Chief Complaint: Lower Extremity Injury Informant: patient Narrative Narrative: Patient is a 70-year-old male with past medical history of hypertension hyperlipidemia imm-cmavplt-parsutgkj diabetes and previous right above the knee amputation. He states that over the last 1 to 2 days he has noticed increasing pain in his left knee. He states that it is to the point where if he is at rest the pain is mild but as soon as he goes to bear weight and ambulate he has increased pain which makes it difficult for him to ambulate and he is concerned he may fall especially as he lives alone. He states that there has been no recent sick symptoms such as fevers or chills and he denies any injury or excessive activity. He states he has been trying upnc-rya-cfsxrap medications such as Tylenol and Motrin and topical rubs such as Voltaren but despite doing this has not had any symptom improvement and therefore comes in for evaluation. [facility] Medical History Coronary atherosclerosis of bypass graft Wears hearing aid Wears glasses Wears contact lenses Wears partial dentures Diabetes Arthritis Anemia Back pain Injury of head and neck Difficulty swallowing Phantom pain after amputation of lower extremity Stuttering History of pain when walking History of edema History of echocardiogram History of stress test Cardiology follow-up encounter Lateral epicondylitis of left elbow Left elbow pain Over 65 years old COVID-19 Fracture, humerus Fall Cancer Depression Former smoker CPAP (continuous positive airway pressure) dependence Pacemaker TIA (transient ischemic attack) Esophageal foreign body Stroke-like symptoms Paresthesia of left upper extremity Renal calculi GERD (gastroesophageal reflux disease) Chest pain Mixed hyperlipidemia Essential hypertension Obesity (BMI 30-39.9) Surgical wound dehiscence Above knee amputation of right lower extremity Debility Lymphedema of right lower extremity Automatic implantable cardioverter-defibrillator in situ Chronic systolic congestive heart failure GERD (gastroesophageal reflux disease) Atherosclerotic heart disease of [place] coronary artery without angina pectoris Shortness of breath 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 Ischemic cardiomyopathy (~10/30/23) Atherosclerosis of coronary artery bypass graft without angina pectoris Gastroenteritis SIRS (systemic inflammatory response syndrome) Morbid obesity with BMI of 40.0-44.9, adult Effects of radiation Acute lymphangitis of right lower extremity ICD (implantable cardioverter-defibrillator) in place (~08/17/10) Lymphedema of Right Leg CAD (coronary artery disease) Chronic Systolic CHF - EF 45% GERD (gastroesophageal reflux disease) Home Medications ?Medication ?Instructions ?Recorded ?Last Taken ?Type aspirin 81 mg chewable tablet 81 mg PO QHS Heart health 06/09/17 11/08/24 History gabapentin 300 mg capsule 300 mg PO QHS Rls 09/21/20 06/10/24 History temazepam 15 mg capsule 15 mg PO QHS PRN Sleep 09/21/20 06/10/24 History trazodone 50 mg tablet 50 mg PO QHS sleep 03/22/21 06/10/24 History escitalopram oxalate 20 mg tablet 20 mg PO DAILY 08/20/22 06/11/24 History multivitamin (Daily Multi-Vitamin 1 tab PO DAILY 05/27/24 06/06/24 History tablet) pantoprazole 40 mg tablet,delayed 40 mg PO DAILY gerd #90 tabs 09/21/24 11/18/24 05:45 Rx release clopidogrel 75 mg tablet (Plavix) 75 mg PO DAILY blood clots #90 tabs 10/12/24 11/08/24 Rx acetaminophen 500 mg tablet 1,000 mg PO Q8 PRN fever or pain 10/21/24 Unknown History desloratadine 5 mg tablet 5 mg PO DAILY PRN allergy symptoms 10/21/24 Unknown History finasteride 5 mg tablet 5 mg PO DAILY 10/21/24 Unknown History dapagliflozin propanediol 10 mg 10 mg PO DAILY #90 tabs 12/10/24 Unknown Rx tablet (Farxiga) carvedilol 25 mg tablet 25 mg PO BID heart #180 tabs 12/25/24 Unknown Rx ramipril 10 mg capsule 10 mg PO DAILY #90 caps 04/15/25 Unknown Rx atorvastatin 40 mg tablet (Lipitor) 40 mg PO QDAY #90 tabs 05/03/25 Unknown Rx furosemide 40 mg tablet 40 mg PO QDAY #90 tabs 06/23/25 Unknown Rx potassium chloride 20 mEq 20 meq PO QDAY supplement #180 tabs 06/23/25 Unknown Rx tablet,extended release spironolactone 25 mg tablet 25 mg PO DAILY #30 tabs 06/23/25 Unknown Rx Allergy/AdvReac Type Severity Reaction Status Date / Time No Known Allergies Allergy Verified 08/08/25 22:25 Family History Mother CAD (coronary artery disease) Father CVA (cerebral vascular accident) Myocardial infarction Brother CAD (coronary artery disease) Hx of CABG Brother CAD (coronary artery disease) Hx of CABG Other Family history of CVA Surgical History History of implantable cardiac defibrillator (ICD) Hx of arthroscopic knee surgery H/O heart artery stent Hx of lithotripsy History of shoulder surgery History of cardiac catheterization Hx of colonoscopy Hx of esophagogastroduodenoscopy Presence of stent in coronary artery (~10/15/13) Postsurgical aortocoronary bypass status (~06/01/05) Social History (Updated 08/09/25 @ 00:[address] Adamaris Carrasco MD) household members: none Smoking Status: Former smoker how long ago did patient quit smokin alcohol intake: current alcohol intake frequency: a few times a month substance use type: does not use caffeine: Yes ROS ROS ED Constitutional Constitutional ED: Denies chills or fever(s) ENT ENT ED: Denies sore throat Cardiovascular Cardiovascular: Denies chest pain Respiratory/Chest Respiratory/Chest: Denies cough or dyspnea Gastrointestinal Gastrointestinal: Denies abdominal pain, diarrhea, nausea or vomiting Genitourinary Genitourinary ED: Denies dysuria Musculoskeletal Musculoskeletal: Reports other Details: Positive left knee pain Integumentary Denies Abrasions or rash Neurologic Neurologic: Denies headache(s) Hematologic/Lymphatic Hematologic/Lymphatic: Denies easy bleeding or easy bruising EXAM Physical Exam Const Vital Signs: 08/08/25 22:25 Temperature 97 F L Temperature Source Temporal Pulse Rate 85 Respiratory Rate 15 Blood Pressure 120/94 H Blood Pressure Mean 102 Pulse Ox 98 Oxygen Delivery Method Room Air Positive well nourished, well developed and obese General Appearance ED: well developed; Negative for pallor Nutritional Appearance: obese HEENT HEENT Narrative: Normocephalic atraumatic Eyes PERRL and EOMs intact bilaterally General Eye ED: Negative for scleral icterus Neck supple Resp normal respiratory effort and clear to auscultation bilaterally Cardio regular rate and regular rhythm Extremity Extremity Narrative: Left lower extremity is neurovascularly intact There is no obvious bony deformity or joint effusion; no asymmetric erythema or warmth. Patellar tendon is intact knee ligaments appear stable There is mild pain with palpation over top of the lateral aspect of the left knee near the lateral meniscus/LCL region. Pain worsens with active and passive flexion of the joint No subcutaneous emphysema noted No lymphangitic streaking Neuro oriented x3, CN's II-XII intact bilaterally and no sensory deficits noted Sensorium / Orientation: alert Psych mental status grossly normal Skin no rashes or lesions noted and no wounds General Skin Exam: Negative for jaundice or pallor MDM MDM MDM Narrative Medical decision making narrative: Patient arrived to ER with stable vitals. He denied any recent trauma or excessive activity but reported increasing pain to the left knee that is now making it difficult for him to bear weight/ambulate. There is no overlying erythema or warmth which would go against a overlying cellulitis or abscess or potential septic joint. However because there is concern for this I did elect to perform basic laboratory studies with x-ray. X-ray revealed arthritic changes but no fracture no dislocation no retained foreign object no gas formation/free air. The white count and absolute neutrophil count are normal going against infection his ESR is normal. Lactic acid is also normal going against secondary infection but CRP is slightly elevated at 46 which is most likely related to inflammatory changes from underlying arthritis. After receiving Toradol and gabapentin the patient has had improved pain control as well as range of motion but it is not at baseline. He states he still feels unsteady on his feet and he is concerned that he is a fall risk and could end up harming himself if discharged home. Therefore at this time as the patient still has persistent pain he has difficulty ambulating and has concerned that he cannot care for himself based on the intractable knee pain I did discuss the case with the hospitalist. At this time he agrees to admit him to the hospital for continued treatment and evaluation. The patient understands that he will most likely be evaluated by PT/OT and social work and potentially placed in a rehab center secondary to his symptoms. He states that he is agreeable to this plan of care. At this time as his physical exam and overall lab work do not suggest a secondary infection such as septic joint I do not feel there is need for IV antibiotics and as there is no joint effusion noted on exam or x-ray I do not feel the need to perform a joint aspiration. History & Record Review Discussion w/independent historian: Patient Lab Data Attestation: I reviewed the patient's lab results. Labs: Laboratory Results - last 24 hr 09/07/25 22:51 WBC 6.2 RBC 4.61 Hgb 14.3 Hct 41.6 MCV 90.2 MCH 31.0 MCHC 34.4 RDW Std Deviation 44.8 H RDW Coeff of Ang 13.6 Plt Count 154 MPV 9.4 Immature Gran % (Auto) 0.600 Neut % (Auto) 74.4 H Lymph % (Auto) 12.7 L Cavalier % (Auto) 11.1 H Eos % (Auto) 0.6 Baso % (Auto) 0.6 Absolute Neuts (auto) 4.6 Absolute Lymphs (auto) 0.79 L Nucleated RBC % 0 ESR 15 Sodium 136 Potassium 4.7 Chloride 104 Carbon Dioxide 21.1 Anion Gap 11 BUN 15 Creatinine 1.21 H Estim Creat Clear Calc 75.42 Est GFR (MDRD) Non-Af 64 BUN/Creatinine Ratio 12.2 Glucose 106 H Lactic Acid 1.9 Calcium 10.0 C-React Prot Ext Range 46.50 H Radiography Diagnostic Testing: Clinical Impression(s) from Imaging Studies Knee X-Ray 08/08/25 23:00 IMPRESSION: As above. Reading Location: [facility] Left knee x-ray as interpreted by the emergency medicine physician reveals degenerative/osteoarthritic changes without acute fracture dislocation or joint effusion Management Discussion w/another healthcare provider: Hospitalist Discharge Plan Triage Chief Complaint: Lower Extremity Injury ED Provider: Manuel Hart Dx/Rx/DC Orders Clinical Impression: Intractable neuropathic pain of left knee, Debility, Essential hypertension, Mixed hyperlipidemia, Inability to walk Prescriptions: No Action gabapentin 300 mg capsule 300 mg PO QHS temazepam 15 mg capsule 15 mg PO QHS PRN (Reason: Sleep) trazodone 50 mg tablet 50 mg PO QHS escitalopram oxalate 20 mg tablet 20 mg PO DAILY atorvastatin [Lipitor] 40 mg tablet 40 mg PO QDAY Qty: 90 3RF aspirin 81 MG tablet,chewable 81 mg PO QHS Patient Comments: TAKES WITH NIASPAN TO PREVENT HOT FLASHES Rx Instructions: will stop 5 day prior desloratadine 5 mg tablet 5 mg PO DAILY PRN (Reason: allergy symptoms) finasteride 5 mg tablet 5 mg PO DAILY acetaminophen 500 mg Tablet 1,000 mg PO Q8 PRN (Reason: fever or pain) multivitamin [Daily Multi-Vitamin] Tablet 1 tab PO DAILY pantoprazole 40 mg tablet,delayed release (DR/EC) 40 mg PO DAILY Qty: 90 3RF clopidogrel [Plavix] 75 mg tablet 75 mg PO DAILY Qty: 90 3RF dapagliflozin propanediol [Farxiga] 10 mg tablet 10 mg PO DAILY Qty: 90 3RF carvedilol 25 mg tablet 25 mg PO BID Qty: 180 3RF ramipril 10 mg capsule 10 mg PO DAILY Qty: 90 4RF spironolactone 25 mg tablet 25 mg PO DAILY Qty: 30 3RF potassium chloride 20 mEq tablet extended release 20 meq PO QDAY Qty: 180 3RF furosemide 40 mg tablet 40 mg PO QDAY Qty: 90 3RF Rx Instructions: water retention Primary Care Provider: Speedy Boswell Referrals: Speedy Boswell MD [Primary Care Provider] - Print Language: Icelandic Disposition Disposition: Acute Care Hospital [facility]
--- OUTSIDE RECORDS SUMMARY | 2025-08-08 23:30 | XMS RPT_ITS | CCD ---
Author Organization [facility] Care Team Providers Care Hl7 Interface Developer Name Role Phone Sowmya, RN, Peg Demarco Unavailable Unavailable Elbert DORANTES, Speedy Bone Primary Care Provider [phone] Daysi DORANTES, Arlene Gee Unavailable Alex WOLFEN, Rizwana Woodson Unavailable Unavailable Alex CHAIREZ, Rizwana Woodson Unavailable Unavailable JUANCHO Deng, Peg Demarco Unavailable Unavailable JUANCHO Deng, Peg Demarco Unavailable Unavailable Speedy Mtz MD Unavailable Ariel DORANTES, Cary Woodson Unavailable [phone] Siders, Chey C Unavailable Unavailable Siders, Chey C Unavailable Unavailable Branden DORANTES, Lowell Gaines Unavailable JUANCHO Deng, Peg Demarco Unavailable Unavailable [...] Provider Hernando, Dr. Mazariegos Other Provider Alonzo SPRAY DRIER, SPRAY DRIER-C Jeffry Attending Provider Delilah Foster MD Unavailable Speedy Boswell MD Primary Care Provider DAVID RAMIREZ Attending Unavailable HERNANDO, DELILAH Referring Unavailable BOSWELL, SPEEDY Bone Primary Care Unavailable HOUMSSE MAHMOUD Attending Unavailable PACEMAKER [facility] Referring Un available SPEEDY BOSWELL Primary Care [...] Referring Provider Jm Anguiano MD Attending Provider Tessy SPRAY DRIER-CDavid Attending Provider Tessy SPRAY DRIER-CDavid Referring Provider Bushra, Ge Referring Unavailable Boswell, Speedy Primary Care Unavailable Bushra, Ge Attending Unavailable Boswell, Speedy Primary Care Unavailable Bushra, Ge Attending Unavailable Bushra, Crowder Referring Unavailable Boswell, Speedy Primary Care Unavailable Bushra, Ge Attending Unavailable Bushra, Crowder Referring Unavailable Boswell, Speedy Primary Care Unavailable Bushra, Ge Attending Unavailable Glory, Ravi Santiago Referring Unavailable Glory, Ravi Santiago Attending Unavailable Boswell, Speedy Primary Care Unavailable Hernando, Delilah Attending Unavailable Boswell, Speedy Primary Care Unavailable Hernando, Delilah Referring Unavailable Boswell, Speedy Attending Unavailable Boswell, [...] Primary Care Unavailable Boswell, Speedy Referring Unavailable Mollison, Jm Attending Unavailable Boswell, Speedy Referring Unavailable Boswell, Speedy Primary Care Unavailable Hernando, Delilah Consulting Unavailable Boswell, Speedy Primary Care Unavailable Hernando, Delilah Referring Unavailable Hernando, Delilah Attending Unavailable Hernando, Delilah Attending Unavailable Boswell, Speedy Referring Unavailable Boswell, Speedy Primary Care Unavailable Roof SPRAY DRIER, David Ramon Attending Unavailable Boswell, Speedy Primary Care Unavailable Boswell, Speedy Referring Unavailable Hernando, Delilah Attending Unavailable Boswell, Speedy Referring Unavailable Boswell, Speedy Primary Care Unavailable Bushra, Crowder Referring Unavailable Bushra, Ge Attending Unavailable Boswell, Speedy Primary Care Unavailable Roof SPRAY DRIER, David Ramon Referring Unavailable Roof SPRAY DRIER, David Ramon Attending Unavailable Boswell, Speedy Primary Care Unavailable Boswell, Speedy Primary Care Unavailable Manuel Hart Attending Unavailable Boswell, Speedy Primary Care Unavailable Joce Serrano Attending Unavailable Boswell, Speedy Primary Care Unavailable Kenneth Redmond Attending Unavailable Boswell, Speedy Attending Unavailable Boswell, Speedy Primary Care Unavailable Boswell, Speedy Referring Unavailable Boswell, Speedy Referring Unavailable Boswell, Speedy Attending Unavailable Boswell, Speedy Primary Care Unavailable Medications Current Medications Medication Drug Class(es) Dates Sig (Normalized) Sig (Original) acetaminophen 500 mg oral tablet (20 sources) Start: 06-12-2024 End: 10-21-2024 take 2 [...] Loratadine (CLARITIN). desloratadine 5 mg oral tablet (11 sources) Histamine-1 Receptor Antagonist Start: 10-21-2024 take [...] 2019 8:40am finasteride 5 mg oral tablet (11 sources) 5-alpha Reductase Inhibitor Start: 10-21-2024 take 1 tablet by mouth once daily Finasteride 5 mg tablet Active 5 mg PO DAILY October 21, 2024 1:00am furosemide 40 mg oral tablet (20 sources) Loop Diuretic Start: 06-23-2025 take 1 tablet by mouth once daily Furosemide 40 mg tablet Active 40 mg PO daily 90 June 23, 2025 10:10am water retention Start: [...] Two tablets by mouth twice daily FUROSEMIDE [id number] Divina Giles PA-C Start: 10-05-2013 End: 01-07-2016 [...] Start: 06-19-2017 take 1 tablet by serafin once daily HORIZANT 600 MG CR-TABS One tablet by mouth daily GABAPENTIN ENACARBIL [id number] Cary George MD Start: 05-04-2015 End: 01-10-2016 take 1 tablet by mouth once daily HORIZANT 600 MG CR-TABS One tablet by mouth daily GABAPENTIN ENACARBIL [id number] Cary George MD LORazepam 0.5 mg oral tablet (2 sources) [...] daily. 0 Active Multivitamin (Daily Multi-Vitamin) tablet (11 sources) Start: 4 Multivitamin (Daily Multi-Vitamin) tablet [...] Start: 04-25-2019 take 2 tablets by mo [facility] once daily potassium chloride (KLOR-CON M) 20 MEQ extended release tablet Take 2 tablets by mouth daily 60 tablet 5 04/25/2019 Active Start: 01-08-2018 End: 06-23-2025 take 2 tablets by mouth once daily Potassium Chloride 20 mEq tablet extended release Discontinued 40 meq PO daily 180 February 23, 2025 8:08pm June 23, 2025 [...] Start: 12-10-2011 take 2 tablets by mo [facility] once daily KLOR-CON M20 20 MEQ CR-TABS Two tablets by mouth daily POTASSIUM CHLORIDE NISHANT CR [id number] Jay Gaines Singh ALTERNATIVE DISPUTE RESOLUTION MEDIATOR-C Start: 12-10-2011 take 1 tablet by serafin th once daily KLOR-CON M20 20 MEQ CR-TABS One tablet by mouth daily POTASSIUM CHLORIDE NISHANT CR [id number] Speedy Mtz MD Start: 02-16-2011 take 1 tablet by serafin th once daily POTASSIUM CHLORIDE 20 MEQ PACK One tablet by mouth daily POTASSIUM CHLORIDE [id number] Opal Lees Start: 02-16-2011 take 1 tablet by serafin th once daily KLOR-CON M20 20 MEQ CR-TABS One tablet by mouth daily POTASSIUM CHLORIDE NISHANT CR [id number] Speedy Mtz MD Start: 02-16-2011 take 1 tablet by serafin once daily POTASSIUM CHLORIDE 20 MEQ PACK One tablet by mouth daily POTASSIUM CHLORIDE [id number] Opal Lees 12 hr ranolazine 500 mg [...] September 21, 2020 3:07pm heart On Hold: Financial stone Start: 02-24-2014 take 1 tablet by serafin th twice daily RANEXA 500 MG [id number] One tablet by mouth twice daily RANOLAZINE [id number] Divina Giles PA-C Start: 10-05-2013 End: 12-04-2013 take 1 tablet by mouth twice daily Ranolazine 500 MG tablet Discontinued 500 mg PO TWICE A DAY October 05, 2013 1:00am December 04, 2013 1:34am Start: 06-17-2013 End: 10-28-2013 take 1 tablet by mouth twice daily RANEXA 500 MG [id number] One tablet by mouth twice daily RANOLAZINE [id number] Divina Giles PA-C sennosides, fpc 8.6 mg oral tablet (4 sources) Start: 05-31-2021 End: 06-30-2021 take 2 tablets by mouth twice daily senna (SENOKOT) 8.6 MG tablet Take 2 tablets by mouth 2 times daily 120 tablet 0 05/31/2021 06/30/2021 Active Start: 05-28-2021 End: 05-29-2021 senna (SENOKOT) tablet 17.2 mg Start: 05-24-2021 End: 05-28-2021 senna (SENOKOT) tablet 8.6 m g spironolactone 25 mg oral tablet (4 sources) Aldosterone Antagonist Start: 06-23-2025 take 1 tablet by mouth once daily Spironolactone 25 mg tablet Active 25 mg PO DAILY 30 June 23, 2025 12:00am temazepam 15 mg oral [...] tablet by mouth daily every night TEMAZEPAM [id number] Arlene Tavarez MD Start: 07-16-2014 End: 01-10-2016 take 1 tablet by mouth once daily at bedtime as needed TEMAZEPAM 15 MG CAPS One tablet by mouth daily at bedtime as needed TEMAZEPAM [id number] Val Henley RN traZODone hydrochloride 50 mg oral tablet (20 sources) Serotonin Reuptake Inhibitor Start: 03-22-2021 End: [...] NEEDED as needed for Pain 10 3 October 02, 2018 12:00am October 04, 2018 12:00am October 05, 2018 12:14am Lymphedema of right lower extremity Lymphedema, not elsewhere classified Start: 10-02-2018 End: 10-05-2018 take 1 tablet by mouth every six hours as needed Hydrocodone-Acetaminophen Discontinued 1 TABLET PO EVERY 6 HOURS NEEDED 10 3 October 02, 2018 12:00am October 05, 2018 12:14am Start: 02-16-2011 VICODIN 5-500 MG TABS As needed HYDROCODONE-ACETAMINOPHEN [id number] Opal Lees Start: 02-16-2011 End: 12-10-2011 VICODIN 5-500 MG TABS As nee ded HYDROCODONE-ACETAMINOPHEN [id number] Khris Spencer MD Start: 02-16-2011 VICODIN 5-500 MG TABS As needed HYDROCODONE-ACETAMINOPHEN [id number] Opal Lees Start: 02-16-2011 End: 12-10-2011 VICODIN 5-500 MG TABS As nee ded HYDROCODONE-ACETAMINOPHEN [id number] Khris Spencer MD acetaminophen 325 mg / oxyCODONE hydrochloride 5 mg oral tablet (11 sources) Opioid Agonist Start: 10-21-2024 End: 05-09-2025 [...] mg / clavulanate 125 mg oral tablet (20 sources) Penicillin-class Antibacterial Start: 05-28-2017 End: 06-10-2017 [...] TBEC One tablet by mouth daily ASPIRIN [id number] Cary George MD Start: 06-09-2017 End: 10-21-2024 [...] TBEC One tablet by mouth daily ASPIRIN [id number] Cary George MD Start: 02-16-2011 take 1 tablet by serafin once daily ASPIRIN 325 MG TABS One tablet by mouth daily ASPIRIN [id number] Opal Lees aspirin 81 MG ta blet [...] MD Start: 02-16-2011 [facility] LODRANE XR 8MG/5MI One tablet by mouth twice daily LODRANE XR 8MG/5MI Opal Lees Start: 02-16-2011 [facility] LODRANE XR 8MG/5MI One tablet [...] MCG/ACT SUSP (0.032mg/inh) Take as directed BUDESONIDE [id number] Opal Lees 12 hr buPROPion hydrochloride 150 mg extended release oral tablet (20 sources) Aminoketone Start: 01-08-2018 End: 05-27-2024 take [...] COREG 12.5 MG TABS twice daily CARVEDILOL [id number] Екатерина Griggs RN Start: 02-16-2011 End: 01-10-2016 [...] 500 mg PO TWICE A DAY 6 August 05, 2019 12:00am September 02, 2019 2:02pm citalopram 10 mg oral tablet (20 sources) Serotonin Reuptake Inhibitor Start: 07-16-2014 End: 01-10-2016 take 1 tablet by mouth once daily CITALOPRAM HYDROBROMIDE 10 MG TABS One tablet by mouth daily CITALOPRAM HYDROBROMIDE [id number] Val Henley RN clindamycin 150 mg oral capsule (20 sources) Lincosamide Antibacterial Start: 02-12-2019 End: 04-14-2019 [...] 10 MG TROC 5 x day CLOTRIMAZOLE [id number] Wilda Wise clotrimazole (LO TRIMIN) 1 % [...] twice daily for 10 days DOXYCYCLINE HYCLATE [id number] Jeffry Larsen CNP 0.4 ml enoxaparin sodium [...] One tablet by mouth daily ESOMEPRAZOLE MAGNESIUM [id number] Opal Lees etodolac 400 mg oral tablet (20 sources) Nonsteroidal Anti-inflammatory Drug Start: 07-16-2014 End: 01-10-2016 take 1 tablet by mouth twice daily as needed ETODOLAC 400 MG TABS One tablet by mouth twice daily as needed ETODOLAC [id number] Val Henley RN fexofenadine hydrochloride 180 mg oral tablet (14 sources) Histamine-1 Receptor Antagonist Start: 03-27-2023 End: 10-21-2024 take 1 tablet by mouth once daily Fexofenadine (Romana Allergy) 180 mg tablet Discontinued 180 mg PO DAILY March 27, 2023 12:00am October 21, 2024 1:26am fluconazole 200 mg oral tablet (16 sources) Azole Antifungal Start: 01-11-2016 End: 01-16-2016 take 1 tablet by mouth once daily FLUCONAZOLE 200 MG TABS 1 po q d FLUCONAZOLE [id number] Arlene Tavarez MD 1 ml HYDROmorphone hydrochloride 1 mg/ml cartridge (2 sources) Opioid Agonist Start: 01-06-2024 End: 01-07-2024 take 0.2 mg intravenously every two hours as needed HYDROmorphone (DILAUDID) injection 0.2 mg Start: 05-24-2021 End: 05-24-2021 HYDROmorphone (DILAUDID) inj ection 0.5 mg 24 hr isosorbide mononitrate 60 mg extended release oral tablet (20 sources) Nitrate Vasodilator Start: 05-03-2025 End: 07-19-2025 take 1 tablet by mouth once daily, then take 1 tablet by mouth every twenty-four hours Isosorbide Mononitrate 60 mg tablet extended release 24 hr Discontinued 60 mg PO daily 90 3 May 03, 2025 5:54pm July 19, 2025 3:43pm blood pressure Start: 01-06-2024 End: 01-07-2024 60 [...] once daily ISOSORBIDE MONONITRATE ER 60 MG [id number] One tablet by mouth daily ISOSORBIDE MONONITRATE [id number] Ge Tomlinson MD Start: 10-07-2013 End: 10-24-2015 take 1 tablet by mouth twice daily IMDUR 60 MG [id number] One tablet by mouth twice daily ISOSORBIDE MONONITRATE [id number] Ge Tomlinson MD Start: 10-07-2013 take 1 tablet by serafin th twice daily IMDUR 60 MG [id number] One tablet by mouth twice daily ISOSORBIDE MONONITRATE [id number] Speedy Mtz MD Start: 10-07-2013 take 1 tablet by serafin th twice daily IMDUR 60 MG [id number] One tablet by mouth twice daily ISOSORBIDE MONONITRATE Speedy Mtz MD Start: 10-07-2013 End: 10-24-2015 take 1 tablet by mouth twice daily IMDUR 60 MG [id number] One tablet by mouth twice daily ISOSORBIDE MONONITRATE Ge Tomlinson MD Start: 10-05-2013 End: 01-10-2016 take 1 tablet by mouth twice daily Isosorbide Mononitrate 60 MG tablet Discontinued 60 mg PO TWICE A DAY October 05, 2013 1:00am January 07, 2016 1:54pm Start: 08-27-2013 take 1 tablet by serafin th twice daily IMDUR 30 MG [id number] One tablet by mouth twice daily ISOSORBIDE MONONITRATE [id number] Speedy Mtz MD Start: 08-27-2013 take 1 tablet by serafin th twice daily IMDUR 30 MG [id number] One tablet by mouth twice daily ISOSORBIDE MONONITRATE [id number] Speedy Mtz MD Start: 08-27-2013 take 1 tablet by serafin th twice daily IMDUR 30 MG [id number] One tablet by mouth twice daily ISOSORBIDE MONONITRATE [id number] Speedy Mtz MD Start: 07-01-2013 take 1 tablet by serafin th once daily IMDUR 30 MG [id number] One tablet by mouth daily ISOSORBIDE MONONITRATE [id number] Divina Giles PA-C Start: 07-01-2013 take 1 tablet by serafin th once daily IMDUR 30 MG [id number] One tablet by mouth daily ISOSORBIDE MONONITRATE [id number] Divina Giles PA-C Start: 07-01-2013 take 1 tablet by serafin th once daily IMDUR 30 MG [id number] One tablet by mouth daily ISOSORBIDE MONONITRATE [id number] Divina Giles PA-C KLOR-CON 20 CR-TABS (POTASSIUM CHLORIDE CR-TABS) (16 [...] One tablet by mouth daily LEVOCETIRIZINE DIHYDROCHLORIDE [id number] Cary George MD levoFLOXacin 500 mg oral tablet (16 sources) Quinolone Antimicrobial Start: 01-07-2016 End: 01-14-2016 take 1 tablet by mouth once daily LEVAQUIN 500 MG TABS One tablet by mouth daily LEVOFLOXACIN [id number] Wilda Wise 10 ml lidocaine hydrochloride 10 [...] One tablet by mouth daily MULTIPLE VITAMIN [id number] Opal Lees MULTIPLE VITAMIN (15 sources) Start: 02-16-2011 take 1 tablet by mouth once daily MULTIVITAMINS TABS One tablet by mouth daily MULTIPLE VITAMIN [id number] Opal Lees naproxen 500 mg oral tablet (20 sources) Nonsteroidal Anti-inflammatory Drug Start: 02-16-2011 End: 07-16-2014 take 1 tablet by mouth twice daily NAPROXEN 500 MG TABS One tablet by mouth twice daily NAPROXEN [id number] Opal Lees 24 hr nicotine 0.583 mg/hr transdermal system (20 sources) Cholinergic Nicotinic Agonist Start: 12-14-2016 End: 06-19-2017 NICODERM CQ 14 MG/24HR PT24 Apply once a day for 2 weeks or as directed NICOTINE [id number] Cary George MD nitroglycerin 0.4 mg sublingual [...] 3 as needed for chest pain. NITROGLYCERIN [id number] Ginny Alanis RN nystatin 605867 unt/ml oral suspension (20 sources) Polyene Antifungal Start: 06-19-2017 End: 01-08-2018 take [id number] [IU] by mouth three times daily Nystatin 100,000 UNIT/ML suspension Discontinued [id number] U PO THREE TIMES A DAY July 30, 2017 12:00am January 08, 2018 3:34pm Start: 01-07-2016 End: 06-01-2016 NYSTATIN 725227 UNIT/GM POWD three times a day NYSTATIN [id number] Wilda Wise Start: 01-07-2016 End: 06-01-2016 NYSTATIN 455980 UNIT/GM POWD three times a day NYSTATIN [id number] Wilda Anjelica Billie omeprazole 40 mg delayed release oral capsule (20 sources) Proton Pump Inhibitor Start: 10-21-2012 End: 01-10-2016 take 1 tablet by mouth once daily OMEPRAZOLE 40 MG CPDR One tablet by mouth daily OMEPRAZOLE [id number] Wildaalbino Hendrixshabnam Start: 05-03-2011 take 1 tablet by serafin th once daily OMEPRAZOLE 20 MG CPDR One tablet by mouth daily OMEPRAZOLE [id number] Opal Lees Start: 02-16-2011 End: 01-08-2018 take 1 capsule by mouth twice daily Omeprazole 40 MG capsule Discontinued 40 mg PO TWICE A DAY October 05, 2013 1:00am January 08, 2018 12:09pm 2 ml ondansetron 2 mg/ml injection (20 sources) Serotonin-3 Receptor Antagonist Start: 01-06-2024 End: [...] HOURS as needed for pain 14 3 November 18, 2024 May 09, 2025 12:10am [...] Start: 07-08-2017 take 1 tablet by serafin th twice daily PROTONIX 40 MG TBEC One tablet by mouth twice daily PANTOPRAZOLE SODIUM 50101141717 Cary George MD take 40 mg by mouth once daily before breakfast pantoprazole sodium (PROTONIX) 40 MG PACK packet Take 40 mg by mouth every morning (before breakfast) 0 Active 2 ml penicillin g benzathine 123044 unt/ml / penicillin g procaine 194577 unt/ml prefilled syringe (20 sources) Penicillin-class Antibacterial Start: 07-11-2018 End: 04-14-2019 Penicillin G Benzathin,Procain 1,200,000 UNIT/2 ML syringe Discontinued [id number] U IM EVERY MONTH July 11, 2018 12:00am April 14, 2019 8:42am infection polyethylene glycol 3350 49035 mg powder for oral solution (20 sources) [...] mouth twice daily (0.25) POLYETHYLENE GLYCOL 3350 [id number] Opal Lees Start: 02-16-2011 End: 12-10-2011 take 1 tablet by mouth twice daily MIRALAX PACK One tablet by mouth twice daily (0.25) POLYETHYLENE GLYCOL 3350 [id number] Khris Spencer MD Start: 02-16-2011 take 1 tablet by serafin th twice daily MIRALAX PACK One tablet by mouth twice daily (0.25) POLYETHYLENE GLYCOL 3350 [id number] Opal Lees Start: 02-16-2011 End: 12-10-2011 take 1 tablet by mouth twice daily MIRALAX PACK One tablet by mouth twice daily (0.25) POLYETHYLENE GLYCOL 3350 [id number] Khris Spencer MD POLYETHYLENE GLYCOL 3350 (2 sources) Start: 02-16-2011 End: 12-10-2011 take 1 tablet by mouth twice daily MIRALAX PACK One tablet by mouth twice daily (0.25) POLYETHYLENE GLYCOL 3350 [id number] Khris Spencer MD Start: 02-16-2011 take 1 tablet by serafin th twice daily MIRALAX PACK One tablet by mouth twice daily (0.25) POLYETHYLENE GLYCOL 3350 [id number] Opal Lees pramipexole dihydrochloride 0.5 mg oral tablet (20 sources) Nonergot Dopamine Agonist Start: 12-10-2011 End: 05-04-2015 take 2 tablets by mouth at bedtime MIRAPEX 0.125 MG TABS 2 tablets by mouth at bedtime PRAMIPEXOLE DIHYDROCHLORIDE [id number] Speedy Mtz MD Start: 12-10-2011 take 1 tablet by serafin th at bedtime MIRAPEX 0.5 MG TABS One tablet by mouth at bedtime. PRAMIPEXOLE DIHYDROCHLORIDE [id number] Khris Spencer MD predniSONE 20 mg oral [...] 06-19-2017 ALTACE 2.5 MG CAPS .11 RAMIPRIL [id number] Cary George MD Start: 01-07-2014 End: 01-08-2018 take 1 capsule by mouth once daily Ramipril 5 MG capsule Discontinued 5 mg PO DAILY 30 0 January 07, 2016 1:00am January 08, 2018 3:35pm Start: 01-07-2014 ALTACE 5 MG CA PS on hold 04/29 RAMIPRIL [id number] Екатерина Griggs RN Start: 01-07-2014 take 1 tablet by serafin th twice daily ALTACE 10 MG CAPS One tablet by mouth twice daily RAMIPRIL [id number] Ginny Alanis RN Start: 01-07-2014 take 1 tablet by serafin th once daily ALTACE 2.5 MG CAPS One tablet by mouth daily RAMIPRIL [id number] Divina Giles PA-C Start: 10-05-2013 End: 01-07-2016 [...] One tablet by mouth twice daily RAMIPRIL [id number] Val Henley RN silodosin 8 mg oral capsule (20 sources) alpha-Adrenergic Sasha Start: 11-06-2013 End: 01-10-2015 take 1 tablet by mouth at bedtime RAPAFLO 8 MG CAPS One tablet by mouth at bedtime. SILODOSIN [id number] Speedy Mtz MD 1000 ml sodium chloride [...] George MD sucralfate 1000 mg oral tablet (20 sources) Aluminum Complex Start: 07-02-2017 End: 01-08-2018 [...] One tablet by mouth daily TAMSULOSIN HCL [id number] Speedy Mtz MD triamcinolone acetonide 0.055 mg/actuat metered dose nasal spray (20 sources) Corticosteroid Start: 10-30-2012 End: 01-10-2016 take 2 spray(s) nasal route once daily NASACORT AQ 55 MCG/ACT AERO two sprays in each nostril once a day TRIAMCINOLONE ACETONIDE [id number] Wilda Wise Start: 10-30-2012 take 2 spray(s) nasa l route once daily NASACORT AQ 55 MCG/ACT AERS two sprays in each nostril once a day TRIAMCINOLONE ACETONIDE [id number] Peg Deng RN Start: 10-30-2012 take 2 spray(s) nasa l route once daily NASACORT AQ 55 MCG/ACT AERS two sprays in each nostril once a day TRIAMCINOLONE ACETONIDE [id number] Val Henley RN Start: 10-30-2012 End: 01-10-2016 take 2 spray(s) nasal route once daily NASACORT AQ 55 MCG/ACT AERS two sprays in each nostril once a day TRIAMCINOLONE ACETONIDE [id number] Wilda Wise Vancomycin HCl in NaCl (Vancocin) [...] Problem Date Documented Date Episodic/Chronic Abdominal pain (20 sources) Left flank pain; Translations: [Unspecified abdominal pain] 01-24-2022 Episodic Acute 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 (20 sources) ST elevation (STEMI) 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 involving other coronary artery of anterior wall; Translations: [Acute 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 of other anterior wall, subsequent episode of care] Onset: 02-16-2011 Resolved: 06-01-2016 02-16-2011 Chronic Cardiac dysrhythmias (2 sources) Palpitations; Translations: [Palpitations] Onset: 11-21-2023 Episodic Chronic obstructive pulmonary disease and bronchiectasis (20 sources) Bronchitis; Translations: [Bronchitis, not specified as [...] Coronary atherosclerosis; Translations: [Atherosclerotic heart disease of [place] coronary artery without angina pectoris] Onset: 02-16-2011 Resolved: 11-30-2016 11-30-2016 Chronic Comment on above: 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- PARK to LAD , SARIAH [...] Onset: 06-10-2025 Chronic Diabetes mellitus without complication (11 sources) Hyperglycemia; Translations: [Hyperglycemia, unspecified] 05-21-2024 Episodic Disorders of lipid metabolism (20 sources) Hyperlipidemia; Translations: [Hyperlipidemia, unspecified] Onset: 02-16-2011 02-16-2011 Chronic E Codes: Fall (20 sources) Fall; Translations: [Unspecified fall, initial encounter] [...] Episodic Immunizations and screening for infectious disease (20 sources) Suspected disease caused by 2019-nCoV; Translations: [Suspected 2019-nCoV infection] 07-18-2020 Episodic Malaise and fatigue (20 sources) Malaise and fatigue; Translations: [Other malaise and fatigue] Onset: 01-10-2015 01-10-2015 Episodic Noninfectious gastroenteritis (20 sources) Gastroenteritis; Translations: [Noninfective gastroenteritis and colitis, unspecified] 04-21-2019 Episodic Nonspecific chest pain (20 sources) Chest pain; Translations: [Chest pain, unspecified] Onset: 05-18-2025 02-18-2021 Episodic Osteoarthritis (18 sources) Osteoarthritis of left hip joint; Translations: [Unilateral primary osteoarthritis, left hip] Onset: 10-05-2015 10-05-2015 Chronic Other aftercare (9 sources) Patient encounter status; Translations: [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] 04-21-2019 Episodic Other aftercare (11 sources) Long-term current use of drug therapy; Translations: [Other chcf (current) drug therapy] 01-08-2018 Episodic Other bone disease and musculoskeletal deformities (6 sources) History of amputation of right leg through femur; Translations: [Acquired absence of right leg above knee] Onset: 04-23-2019 04-25-2019 Chronic Other connective tissue disease (20 sources) Neurological symptom; Translations: [Unspecified symptoms and signs involving the nervous system] 02-18-2021 Episodic Other connective tissue disease (17 sources) Lateral epicondylitis of left humerus; Translations: [Lateral epicondylitis, left elbow] 08-09-2022 Episodic Other connective tissue disease (2 sources) Lateral epicondylitis, left elbow; Translations: [Lateral epicondylitis] Episodic Other connective tissue disease (11 sources) Prepatellar bursitis of left knee; Translations: [Prepatellar bursitis, left knee] 07-07-2024 Episodic Other connective tissue disease (4 sources) Radial styloid tenosynovitis; Translations: [Radial styloid tenosynovitis [de Quervain]] 06-24-2025 Episodic Other connective tissue disease (1 source) Radial styloid tenosynovitis [de Quervain]; Translations: [Radial styloid tenosynovitis [de Quervain]] Onset: 06-24-2025 Episodic Other diseases of kidney and ureters (11 sources) Small left kidney; Translations: [Small kidney, unilateral] 11-18-2024 Episodic Other diseases of veins and lymphatics (18 sources) Lymphedema, not elsewhere classified; Translations: [Lymphedema of lower extremity] Onset: 08-06-2013 04-03-2017 Chronic Other diseases of veins and lymphatics (20 sources) Lymphedema of right lower limb; Translations: [...] injuries and conditions due to external causes (20 sources) Foreign body in esophagus; Translations: [Unspecified foreign body in esophagus causing other injury, initial encounter] 05-09-2021 Episodic Other injuries and conditions due to external causes (9 sources) Radiation injury; Translations: [Radiation sickness, unspecified, initial encounter] 04-21-2019 Episodic Other injuries and conditions due to external causes (20 sources) Systemic inflammatory response syndrome; Translations: [Systemic inflammatory response syndrome (SIRS) of non-infectious origin without acute organ dysfunction] 04-21-2019 Episodic Other injuries and conditions due to external causes (11 sources) Injury by causative force; Translations: [Radiation sickness, unspecified, initial encounter] 01-08-2018 Episodic Comment on above: late effect radiatio n right lower extremity Other lower respiratory disease (20 sources) Dyspnea; Translations: [Shortness of breath] Onset: 07-01-2013 07-01-2013 Episodic Other lower respiratory disease (16 sources) Wheezing; Translations: [Wheezing] 11-04-2022 Episodic Other lower respiratory disease (1 source) Shortness of breath; Translations: [Shortness of breath] Onset: 07-12-2025 Episodic Other nervous system disorders (20 sources) Paresthesia of left upper limb; Translations: [Paresthesia of skin] 02-18-2021 Episodic Other non-traumatic joint disorders (17 sources) Pain in elbow; Translations: [Pain in [...] Spondylosis; intervertebral disc disorders; other back problems (11 sources) Low back pain; Translations: [Low back pain] 11-03-2024 Episodic Superficial injury; contusion (11 sources) Contusion of right shoulder; Translations: [Contusion of right shoulder, initial encounter] 07-07-2024 Episodic Unclassified (2 sources) Disorder of cardiovascular system; Translations: [Unspecified disorder of circulatory system] Onset: 02-16-2011 Resolved: 06-01-2016 02-16-2011 Chronic Unclassified (1 source) Implantation of automatic cardiac defibrillator ; Translations: [Presence of automatic (implantable) cardiac defibrillator] Onset: 02-16-2011 02-16-2011 Unclassified (1 source) Long-term drug therapy; Translations: [Other chcf (current) drug therapy] Onset: 02-16-2011 02-16-2011 Unclassified (1 source) Aftercare ; Translations: [Encounter for other specified surgical aftercare] Onset: 06-05-2017 07-07-2017 Unclassified (1 source) Low back pain, unspecified; Translations: [Low back pain, unspecified] Onset: 01-11-2025 Viral infection (20 sources) Disease caused by 2019-nCoV; Translations: [COVID-19] [...] 04-25-2019 04-25-2019 Episodic Congestive heart failure; nonhypertensive (20 sources) Congestive heart failure; nonhypertensive 04-21-2019 Neoplasms of unspecified nature or uncertain behavior (20 sources) Neoplasm of soft tissue; 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] Onset: 05-15-2017 05-18-2017 Episodic Open wounds of extremities (16 sources) Open wound of foot except toes with complication; Translations: [Laceration with foreign body, unspecified foot, initial encounter] Onset: 01-11-2016 01-12-2016 Episodic Other aftercare (15 sources) Long-term drug therapy; Translations: [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 [place] [address] OFFICE VISIT Date of Service: 07/19/25 MR#: [id number] Acct: [id number] Name: ALBIN ISSA Rep #: [id number] : 1955 Provider: JHON almeida Age/Sex: 70/M Location: [facility] Status: Signed HPI HPI History of Present Illness Details: This gentleman with history of coronary artery disease status post CABG, status post MC to the LAD, ischemic cardiomyopathy, status post ICD placement, hypertension, dyslipidemia and obesity is here for follow-up visit. He denies chest, arm, jaw, or neck discomfort. He denies palpitations. He denies bilateral lower extremity edema. He denies claudication. He states shortness of breath with activity. He denies shortness of breath at rest, orthopnea, or PND. He denies chronic cough. He denies significant, sudden weight gain. He denies lightheadedness, dizziness, near-syncope, or syncope. He denies blood in urine, blood in stool, or epistaxis. He denies fever with chills. He denies myalgia. He states more fatigue than usual. His exercise level has remained stable. Intake Vital Signs 05/09/25 00:02 07/19/25 14:59 07/19/25 15:14 07/19/25 15:14 Height 5 ft 7 in 5 ft 7 in Weight: 294 lb BMI 46.0 BP 68/43 L 74/44 L 68/42 L Blood Pressure Location Lt brachial Lt brachial Rt brachial Position Sitting Sitting Sitting Respiration 18 Pulse 53 L Pulse Source NIBP Comment Manual BP Manual BP Intake Visit Reasons: 2-4 W FU PER JR Donor Services Specialist Required: No Is patient in pain?: No Allergies No Known Allergies Allergy (Verified 07/19/25 15:04) Medications ???Medication ???Instructions ???Recorded ???Confirmed ???Type aspirin 81 mg chewable tablet 81 mg PO QHS Heart health 06/09/17 07/19/25 History gabapentin 300 mg capsule 300 mg PO QHS Rls 09/21/20 5 History temazepam 15 mg capsule 15 mg PO QHS PRN Sleep 09/21/20 History trazodone 50 mg tablet 50 mg PO QHS sleep 03/22/21 History escitalopram oxalate 20 mg tablet 20 mg PO DAILY 08/20/22 07/19/25 History multivitamin (Daily Multi-Vitamin 1 tab PO DAILY 05/27/24 07/19/25 History tablet) pantoprazole 40 mg tablet,delayed 40 mg PO DAILY gerd #90 tabs 09/0207/19/25 Rx release clopidogrel 75 mg tablet (Plavix) 75 mg PO DAILY blood clots #90 ta bs 10/12/24 07/19/25 Rx acetaminophen 500 mg tablet 1,000 mg PO Q8 PRN fever or pain 1 12/21/23 07/19/25 History desloratadine 5 mg tablet 5 mg PO DAILY PRN allergy symptoms 10/21/24 07/19/25 History finasteride 5 mg tablet 5 mg PO DAILY 10/21/24 07/19/25 Hi story dapagliflozin propanediol 10 mg 10 mg PO DAILY #90 tabs 12/10/24 0 07/19/25 Rx tablet (Farxiga) carvedilol 25 mg tablet 25 mg PO BID heart #180 tabs 12/2507/19/25 Rx ramipril 10 mg capsule 10 mg PO DAILY #90 caps 04/15/25 0 07/19/25 Rx atorvastatin 40 mg tablet (Lipitor) 40 mg PO QDAY #90 tabs 05/03/25 07/19/25 Rx furosemide 40 mg tablet 40 mg PO QDAY #90 tabs 06/23/25 Rx potassium chloride 20 mEq 20 meq PO QDAY supplement #180 tab s 06/23/25 07/19/25 Rx tablet,extended release spironolactone 25 mg tablet 25 mg PO DAILY #30 tabs 06/23/25 0 07/19/25 Rx Ejection fraction %: 35 Have you fallen in the past year?: No PFS Medical History Coronary atherosclerosis of bypass graft [...] (gastroesophageal reflux disease) Atherosclerotic heart disease of [place] coronary artery without angina pectoris Shortness of breath History of 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 Normal [facility] Anion gap in Serum or Plasma Ordered By: David Still on 07-02-2025 Anion gap [Moles/Vol] 13 mmol/L 04-15 [facility] BUN/creatinine ratioOrdered By: David Still on 07-02-2025 Urea nitrogen/Creatinine [Mass ratio] 17.6 mg/mg 09-20 [facility] Basic Metabolic Profile (BMP )on 07-02-2025 BUN/CRE 17.6 RATIO Normal 09-20 [facility] Comment on above: Performed By: #### L 500.2500 #### [facility] [address] [place], [place], [address] Calcium [Mass/Vol] 9.7 mg/dL Normal 7.6-11.0 [facility] Comment on above: Performed By: #### L 500.2500 #### [facility] [address] [place], [address] Chloride [Moles/Vol] 106 mmol/L Normal 98-108 [facility] Comment on above: Performed By: #### L 500.2500 #### [facility] [address] [place], [address] CO2 [Moles/Vol] 20.6 mmol/L Low 21.0-32.0 [facility] Comment on above: Performed By: #### L 500.2500 #### [facility] [address] [place], [address] Creatinine [Mass/Vol] 1.56 mg/dL High 0.70-1.20 [facility] Comment on above: Performed By: #### L 500.2500 #### [facility] [address] [place], [address] GAP 13 Normal 5-15 [facility] Comment on above: Performed By: #### L 500.2500 #### [facility] [address] [place], [address] GFR/1.73 sq M.predicted among non-blacks MDRD (S/P/Bld) [Vol rate/Area] 47 mL/min/{1.73_m2} Low >60 [facility] Comment on above: Result Comment: mL/m in/1.73m2 CKD-EPI Creatinine Equation (2020) Performed By: #### L 500.2500 #### [facility] [address] [place], [address] Glucose [Mass/Vol] 105 mg/dL High 70-99 [facility] Comment on above: Performed By: #### L 500.2500 #### [facility] [address] [place], [address] Potassium [Moles/Vol] 4.6 mmol/L Normal 3.3-5.1 [facility] Comment on above: Performed By: #### L 500.2500 #### [facility] [address] [place], [address] Sodium [Moles/Vol] 140 mmol/L Normal 133-145 [facility] Comment on above: Performed By: #### L 500.2500 #### [facility] [address] [place], [place], [address] Urea nitrogen [Mass/Vol] 27 mg/dL High 4-19 [facility] Comment on above: Performed By: #### L 500.2500 #### [facility] [address] [place], [place], [address] Carbon dioxide, total [Moles /volume] in Central venous bloodOrdered By: David Still on 07-02-2025 CO2 [Moles/Vol] 20.6 mmol/L Low 21.0-32.0 [facility] Chloride assayOrdered By: Haile Still on 07-02-2025 Chloride [Moles/Vol] 106 mmol/L 98-108 [facility] Glomerular filtration rate ( GFR) estimation/1.73 sq m using serum, plasma, or whole bOrdered By: David Still on 07-02-2025 GFR/1.73 sq M.predicted among non-blacks MDRD (S/P/Bld) [Vol rate/Area] 47 mL/min/{1.73_m2} Low >60 [facility] Comment on above: mL/min/1.73m2 CKD-EP I Creatinine Equation (2020) Potassium measurement (mass/ volume)Ordered By: David Still on 07-02-2025 Potassium (Unsp spec) [Mass/Vol] 4.6 mmol/L 3.3-5.1 [facility] Serum creatinine measurement (mass/volume)Ordered By: David Still on 07-02-2025 Creatinine [Mass/Vol] 1.56 mg/dL High 0.70-1.20 [facility] Serum glucose measurement (m ass/volume)Ordered By: David Still on 07-02-2025 Glucose [Mass/Vol] 105 mg/dL High 70-99 [facility] Serum or plasma calcium raul urement (mass/volume)Ordered By: David Still on 07-02-2025 Calcium [Mass/Vol] 9.7 mg/dL 7.6-11.0 [facility] Serum or plasma urea nitroge n measurement (mass/volume)Ordered By: David Still on 07-02-2025 Urea nitrogen [Mass/Vol] 27 mg/dL High 4-19 [facility] Sodium levelOrdered By: David Still on 07-02-2025 Sodium [Moles/Vol] 140 mmol/L 133-145 [facility] Orthopedic Visit Reporton Orthopedic Visit Report [facility] [place] [address] OFFICE VISIT Date of Service: 06/24/25 MR#: [id number] Acct: [id number] Name: ALBIN ISSA Rep #: [id number] : 1955 Provider: Dr. Jm adkins MD Age/Sex: 70/M Location: [facility] [place] Status: Signed with Addenda ADDENDUM by JOSE [...] Performing Provider: Jm Anguiano MD Performing Location: [facility] Administered by: Jm Anguiano MD on 06/24/25 15:37 Dose Route Admin Location Dispensed Lot Number Expiration Date NDC Man ufacturer 40 mg intra-articular Bilateral wrist 1 mL [id number] 07/02/27 2618-6779-32 [facility] Date cc: * Signed Intake Vital [...] 40 mg PO DAILY gerd #90 tabs 09/0206/24/25 Rx release clopidogrel 75 mg tablet (Plavix) [...] (gastroesophageal reflux disease) Atherosclerotic heart disease of [place] coronary artery without angina pectoris Shortness of breath History of 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 care home (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 Normal [facility] Echocardiogram study reportO rdered By: Delilah Foster on 06-14-2025 Study report [facility] [address] [place] [address]. [place] [address] Echo Complete W/ Contrast 06/10/25 0928 MR#: [id number] Acct: [id number] Name: ALBIN ISSA Rep #:[id number] : 1955 70 From: Delilah Foster MD Attending Dr: Dr. Delilah Foster MD Status: REG CLI Ordering Dr: Delilah Foster MD Date: Location: [facility] Sex: M C Admitted: Reason For Study [...] Dr. Speedy Boswell MD ~ Date Dictated: 06/10/2528 Date Transcribed: 06/14/25 120 Assembler Brazer: Signed [facility] Work Phone: Cardiovascular stress test r eportOrdered By: Delilah Foster on 06-10-2025 Study report [facility] [address] [place] [address] MR#: [id number] Acct: [id number] Name: ALBIN ISSA Rep #: [id number] : 1955 70 From: Delilah Foster MD [...] of 43%. This note was generated with Traveler | VIPation software. It may contain incorrectwords, spelling, and punctuation that were not noted in checking the note beforesigning. 06/10/25 1123 Date _ Delilah Foster MD CC: Dr. Delilah Foster MD; Dr. Speedy Boswell MD ~ Date Dictated: 06/10/251120 Date Transcribed: 06/10/251120 Assembler Brazer: SON Mcgarry [facility] Work Phone: Echo Complete W/ Contraston 06-10-2025 Echo Complete W/ Contrast [facility] [address] [place] [address] Echo Complete W/ Contrast 06/10/25 0928 MR#: [id number] Acct: [id number] Name: ALBIN ISSA Rep #: [id number] : 1955 70 From: Delilah Foster MD Attending Dr: Dr. Delilah Foster MD Status: REG CLI Ordering Dr: Delilah Foster MD Date: 06/10/25 Location: [facility] Sex: M C Admitted: Reason For Study [...] By: Sarah Lopez RCS 06/14/25 1208 Date Delilah Foster MD CC: Dr. Delilah Foster MD; Dr. Speedy Boswell MD Date Dictated: 06/10/25 0928 Date Transcribed: 06/14/25 1208 Assembler Brazer: Signed Normal [facility] Stress Reporton 06-10-2025 Stress Report [facility] [address] [place] [address] MR#: [id number] Acct: [id number] Name: ALBIN ISSA Rep #: [id number] : 1955 70 From: Delilah Foster MD [...] of 43%. This note was generated with [employer] dictation software. It may contain incorrect words, spelling, and punctuation that were not noted in checking the note before signing. 06/10/253 Date Delilah Foster MD CC: Dr. Delilah Foster MD; Dr. Speedy Boswell MD Date Dictated: 06/10/251120 Date Transcribed: 06/10/251120 Assembler Brazer: SON Signed Normal [facility] Calculated very low density lipoprotein (VLDL) cholesterol measurementOrdered By: Speedy Boswell on 06-07-2025 Calculated very low density lipoprotein (VLDL) cholesterol measurement 22 mg/dL 5-40 [facility] LDL calc ser/plasOrdered By: Speedy Boswell on 06-07-2025 Cholesterol in LDL [Mass/Vol] 68 mg/dL [facility] Comment on above: Txcvatyoag=728-957 m g/dL & Higher Ruid=350 mg/dL or greater Lipid Profileon 06-07-2025 CHOL:HDL 3.[address] [facility] Comment on above: Performed By: #### L 500.2500, L100.0100 #### [facility] [address] [place], [place], [address] Cholesterol [Mass/Vol] 122 mg/dL Normal <=200 [facility] Comment on above: Result Comment: Chol esterol level, Desirable <200 mg/dL Borderline high cholesterol 200-239 mg/dL High cholesterol >=240 mg/dL Recommendations of the NCEP Adult Treatment Panel for the following risk-cutoff thresholds for the [place] population. Performed By: #### L 500.2500, L100.0100 #### [facility] [address] [place], [address] Cholesterol in HDL [Mass/Vol] 32 mg/dL Low [facility] Comment on above: Result Comment: Kimberley onal Cholesterol Education Program (NCEP) guidelines: <40 mg/dL: Low HDL-cholesterol (major risk factor for CHD) >= 60 mg/dL: High HDL-cholesterol (negative risk factor for CHD) HDL-cholesterol is affected by a number of factors, e.g. smoking, exercise, hormones, sex and age. Performed By: #### L 500.2500, L100.0100 #### [facility] [address] [place], [address] Cholesterol in LDL [Mass/Vol] 68 mg/dL Normal [facility] Comment on above: Result Comment: Bord eedury=552-194 mg/dL Higher Dfaa=593 mg/dL or greater Performed By: #### L 500.2500, L100.0100 #### [facility] [address] [place], [address] Cholesterol in VLDL [Mass/Vol] 22 mg/dL Normal 5-40 [facility] Comment on above: Performed By: #### L 500.2500, L100.0100 #### [facility] [address] [place], [address] Triglyceride [Mass/Vol] 110 mg/dL Normal [facility] Comment on above: Result Comment: The drugs N-Acetylcysteine and Metamizole may falsely depress this assay. Normal range: <150 mg/dL Borderline High: 150-199 mg/dL High: 200-499 mg/dL Very High: >500 mg/dL Performed By: #### L 500.2500, L100.0100 #### [facility] [address] [place], [address] Screening total cholesterol/ high density lipoprotein (HDL) cholesterol ratioOrdered By: Speedy Boswell on 06-07-2025 Cholesterol.total/Melba sterol in HDL [Mass ratio] 3.84 {ratio} [facility] Serum or plasma cholesterol in HDL measurement (mass/volume)Ordered By: Speedy Boswell on 06-07-2025 Cholesterol in HDL [Mass/Vol] 32 mg/dL Low >40 [facility] Comment on above: National Cholesterol Education Program (NCEP) guidelines:<40 mg/dL: Low HDL-cholesterol (major risk factor for CHD)>= 60 mg/dL: High HDL-cholesterol (negative risk factor for CHD)HDL-cholesterol is affected by a number of factors, e.g. smoking, exercise, hormones, sex and age. Serum or plasma cholesterol measurement (mass/volume)Ordered By: Speedy Boswell on 06-07-2025 Cholesterol [Mass/Vol] 122 mg/dL <201 [facility] Comment on above: Cholesterol level, D esirable <200 mg/dLBorderline high cholesterol 200-239 mg/dLHigh cholesterol >=240 mg/dLRecommendations of the NCEP Adult Treatment Panel for the following risk-cutoff thresholds for the [place] population. Triglycerides measurementOrd ered By: Speedy Boswell on 06-07-2025 Triglyceride [Mass/Vol] 110 mg/dL <199 [facility] Comment on above: The drugs N-Acetylcy steine and Metamizole may falsely depress this assay. Normal range: <150 mg/dLBorderline High: 150-199 mg/dLHigh: 200-499 mg/dLVery High: >500 mg/dL CTA Chest W/WO Contraston CTA Chest W/WO Contrast [facility] Imaging Services [address] [place] [address] [id number] CTA Chest W/WO Contrast MR#: [id number] Acct: [id number] Name: ALBIN ISSA Rep #: [id number] : 1955 M 70 From: Makenna Steiner PCP: Dr. Speedy Boswell MD Status: REG CLI Study: CTA Chest W/WO Contrast Date of Exam: 05/12/25 Exam# [id number] Ordering Dr: Speedy Boswell MD PROCEDURE: CTA [...] lobar branches. No focal consolidations. Reading Location: QVN-ACCUSP-YE CC: Dr. Speedy Boswell MD Assembler Brazer: Signed Normal [facility] Microalb:Creat Ratio,Random URon 05-12-2025 Creatinine [Mass/Vol] 91.40 mg/dL Normal 39.00-259.00 [facility] Comment on above: Performed By: #### L 500.2500, L100.0100 #### [facility] [address] [place], [address] MALB:CREAT UNABLE TO CALCULATE Normal [facility] Comment on above: Performed By: #### L 500.2500, L100.0100 #### [facility] [address] [place], [address] MICROALBUMIN,UR < 12.0 Normal NO RANGE EST. [facility] Comment on above: Performed By: #### L 500.2500, L100.0100 #### [facility] [address] [place], [address] MALB:CREAT Normal [facility] Comment on above: Result Comment: NO U RINE CVOLLECTED Performed By: #### L 500.2500, L100.0100 #### [facility] [address] [place], [address] MICROALBUMIN,UR Normal NO RANGE EST. [facility] Comment on above: Result Comment: NO U RINE CVOLLECTED Performed By: #### L 500.2500, L100.0100 #### [facility] [address] [place], [address] UR CREAT Normal 39.00-259.00 [facility] Comment on above: Result Comment: NO U RINE CVOLLECTED Performed By: #### L 500.2500, L100.0100 #### [facility] [address] [place], [address] Microalbumin/creat ratio urO rdered By: Speedy Boswell on 05-12-2025 Urine microalbumin/creatinine ratio measurement UNABLE TO CALCULATE mg/g CRE [facility] Random urine creatinine raul urement (mass/volume)Ordered By: Speedy Boswell on 05-12-2025 Creatinine Unsp time (U) [Mass/Vol] 91.40 mg/dL 39.00-259.00 [facility] Urine albumin measurement wi detection limit of 20 mg/L or less (mass/volume)Ordered By: Speedy Boswell on 05-12-2025 Albumin DL <= 20 mg/L (U) [Mass/Vol] < 12.0 mg/L NO RANGE EST. [facility] 12 Lead EKGon 05-09-2025 12 Lead EKG [facility] [address] [place] [address] 12 Lead EKG 05/09/25 0004 MR#: [id number] Acct: [id number] Name: ALBIN ISSA Rep #: [id number] : 1955 70 From: Louis Sweet MD [...] abnormality Abnormal ECG Confirmed by Louis Sweet ([id number]), copy editor BEATRIZ BECERRIL ([id number]) on 05/10/2025 9:34:21 AM Referred By: Confirmed By: Louis Sweet 05/10/25 0934 Date Louis Sweet MD CC: Dr. Speedy Boswell MD; Dr. Kenneth Redmond DO Signed Normal [facility] Absolute lymphocyte countOrd ered By: Kenneth Redmond on 05-09-2025 Lymphocytes Auto (Unsp spec) [#/Vol] 1.88 10*3/uL 0.83-4.51 [facility] Absolute neutrophil countOrd ered By: Kenneth Redmond on 05-09-2025 Neutrophils (Bld) [#/Vol] 4.7 10*3/uL 2.0-7.7 [facility] Activated partial thrombopla stin time (aPTT) in platelet poor plasma by coagulation aOrdered By: Kenneth Redmond on 05-09-2025 aPTT Coag (PPP) [Time] 24.4 s 24.1-36.2 [facility] Anion gap in Serum or Plasma Ordered By: Kenneth Redmond on 05-09-2025 Anion gap [Moles/Vol] 11 mmol/L 5-15 [facility] Automated lymphocyte count a s percentage of total leukocytesOrdered By: Kenneth Redmond on 05-09-2025 Lymphocytes/100 WBC Auto (Unsp spec) 24.3 % 19-41 [facility] BUN/creatinine ratioOrdered By: Kenneth Redmond on 05-09-2025 Urea nitrogen/Creatinine [Mass ratio] 16.2 mg/mg 10-20 [facility] Basic Metabolic Profile (BMP )on 05-09-2025 BUN/CRE 16.2 RATIO Normal 10-20 [facility] Comment on above: Performed By: #### L 400.0001 #### [facility] [address] [place], [address] Calcium [Mass/Vol] 9.7 mg/dL Normal 7.6-11.0 [facility] Comment on above: Performed By: #### L 400.0001 #### [facility] [address] [place], [address] Chloride [Moles/Vol] 105 mmol/L Normal 98-108 [facility] Comment on above: Performed By: #### L 400.0001 #### [facility] [address] [place], [address] CO2 [Moles/Vol] 24.1 mmol/L Normal 21.0-32.0 [facility] Comment on above: Performed By: #### L 400.0001 #### [facility] [address] [place], [address] Creatinine [Mass/Vol] 1.25 mg/dL High 0.70-1.20 [facility] Comment on above: Performed By: #### L 400.0001 #### [facility] [address] [place], [address] ECRCL 74.15 ml/min Normal 50-250 [facility] Comment on above: Performed By: #### L 400.0001 #### [facility] [address] [place], [address] GAP 11 Normal 5-15 [facility] Comment on above: Performed By: #### L 400.0001 #### [facility] [address] [place], [address] GFR/1.73 sq M.predicted among non-blacks MDRD (S/P/Bld) [Vol rate/Area] 62 mL/min/{1.73_m2} Normal >60 [facility] Comment on above: Result Comment: mL/m in/1.73m2 CKD-EPI Creatinine Equation (2020) Performed By: #### L 400.0001 #### [facility] [address] [place], [address] Glucose [Mass/Vol] 88 mg/dL Normal 70-99 [facility] Comment on above: Performed By: #### L 400.0001 #### [facility] [address] [place], [address] Potassium [Moles/Vol] 3.5 mmol/L Normal 3.3-5.1 [facility] Comment on above: Performed By: #### L 400.0001 #### [facility] [address] [place], [address] Sodium [Moles/Vol] 140 mmol/L Normal 133-145 [facility] Comment on above: Performed By: #### L 400.0001 #### [facility] [address] [place], [address] Urea nitrogen [Mass/Vol] 20 mg/dL High 4-19 [facility] Comment on above: Performed By: #### L 400.0001 #### [facility] [address] [place], [address] Basophil percentageOrdered B y: Kenneth Redmond on 05-09-2025 Basophils/100 WBC (Bld) 0.9 % 0-1 [facility] CBC W/Diff, Automatedon 06-0 Absolute Lymph 1.88 X10 3/uL Normal 0.83-4.51 [facility] Comment on above: Performed By: #### L 501.4021, L300.8000, L500.2500, L300.4310, L300.3900, L100.0100, L503.7505 #### [facility] [address] [place], [address] Absolute Neut 4.7 X10 3/uL Normal 2.0-7.7 [facility] Comment on above: Performed By: #### L 501.4021, L300.8000, L500.2500, L300.4310, L300.3900, L100.0100, L503.7505 #### [facility] [address] [place], [address] Basophils/100 WBC (Bld) 0.9 % Normal 0-1 [facility] Comment on above: Performed By: #### L 501.4021, L300.8000, L500.2500, L300.4310, L300.3900, L100.0100, L503.7505 #### [facility] [address] [place], [address] Eosinophils/100 WBC (Bld) 3.9 % Normal 0-5 [facility] Comment on above: Performed By: #### L 501.4021, L300.8000, L500.2500, L300.4310, L300.3900, L100.0100, L503.7505 #### [facility] [address] [place], [address] Erythrocyte distribution width (RBC) [Ratio] 13.3 % Normal 11.6-14.6 [facility] Comment on above: Performed By: #### L 501.4021, L300.8000, L500.2500, L300.4310, L300.3900, L100.0100, L503.7505 #### [facility] [address] [place], [address] Hematocrit (Bld) [Volume fraction] 44.4 % Normal 40-54 [facility] Comment on above: Performed By: #### L 501.4021, L300.8000, L500.2500, L300.4310, L300.3900, L100.0100, L503.7505 #### [facility] [address] [place], [address] Hemoglobin (Bld) [Mass/Vol] 15.0 g/dL Normal 13.0-16.5 [facility] Comment on above: Performed By: #### L 501.4021, L300.8000, L500.2500, L300.4310, L300.3900, L100.0100, L503.7505 #### [facility] [address] [place], [address] IG% 0.600 Normal 0.0-0.9 [facility] Comment on above: Result Comment: IG% - Immature Granulocytes (promyelocytes, myelocytes and metamyelocytes) > 1% indicates that a LEFT SHIFT is Present. Performed By: #### L 501.4021, L300.8000, L500.2500, L300.4310, L300.3900, L100.0100, L503.7505 #### [facility] [address] [place], [address] Lymphocytes/100 WBC (Bld) 24.3 % Normal 19-41 [facility] Comment on above: Performed By: #### L 501.4021, L300.8000, L500.2500, L300.4310, L300.3900, L100.0100, L503.7505 #### [facility] [address] [facility] [place], [address] MCH (RBC) [Entitic mass] 30.2 pg Normal 27.0-32.0 [facility] Comment on above: Performed By: #### L 501.4021, L300.8000, L500.2500, L300.4310, L300.3900, L100.0100, L503.7505 #### [facility] [address] [place], [address] MCHC (RBC) [Mass/Vol] 33.8 g/dL Normal 32-36 [facility] Comment on above: Performed By: #### L 501.4021, L300.8000, L500.2500, L300.4310, L300.3900, L100.0100, L503.7505 #### [facility] [address] [place], [address] MCV (RBC) [Entitic vol] 89.3 fL Normal 80-94 [facility] Comment on above: Performed By: #### L 501.4021, L300.8000, L500.2500, L300.4310, L300.3900, L100.0100, L503.7505 #### [facility] [address] [place], [address] Monocytes/100 WBC (Bld) 9.3 % Normal 0-[address] [facility] Comment on above: Performed By: #### L 501.4021, L300.8000, L500.2500, L300.4310, L300.3900, L100.0100, L503.7505 #### [facility] [address] [place], [address] Neutrophils/100 WBC (Bld) 61.0 % Normal 47-70 [facility] Comment on above: Performed By: #### L 501.4021, L300.8000, L500.2500, L300.4310, L300.3900, L100.0100, L503.7505 #### [facility] [address] [place], [address] Nucleated RBC (Bld) [#/Vol] 0 10*3/uL Normal 0-5 [facility] Comment on above: Performed By: #### L 501.4021, L300.8000, L500.2500, L300.4310, L300.3900, L100.0100, L503.7505 #### [facility] [address] [place], [address] Platelet mean volume (Bld) [Entitic vol] 9.7 fL Normal 6.2-12.0 [facility] Comment on above: Performed By: #### L 501.4021, L300.8000, L500.2500, L300.4310, L300.3900, L100.0100, L503.7505 #### [facility] [address] [place], [address] Platelets (Bld) [#/Vol] 221 10*3/uL Normal 150-450 [facility] Comment on above: Performed By: #### L 501.4021, L300.8000, L500.2500, L300.4310, L300.3900, L100.0100, L503.7505 #### [facility] [address] [place], [address] RBC (Bld) [#/Vol] 4.97 10*6/uL Normal 4.6-6.2 [facility] Comment on above: Performed By: #### L 501.4021, L300.8000, L500.2500, L300.4310, L300.3900, L100.0100, L503.7505 #### [facility] [address] [place], [address] RDW SD 43.5 fl Normal 35.1-43.9 [facility] Comment on above: Performed By: #### L 501.4021, L300.8000, L500.2500, L300.4310, L300.3900, L100.0100, L503.7505 #### [facility] [address] [place], [address] WBC (Bld) [#/Vol] 7.7 10*3/uL Normal 4.4-11.0 [facility] Comment on above: Performed By: #### L 501.4021, L300.8000, L500.2500, L300.4310, L300.3900, L100.0100, L503.7505 #### [facility] [address] [facility] [place], [place], [address] Carbon dioxide, total [Moles /volume] in Central venous bloodOrdered By: Kenneth Redmond on 05-09-2025 CO2 [Moles/Vol] 24.1 mmol/L 21.0-32.0 [facility] Chest PA and Lateralon 05-09 Chest PA and Lateral [facility] Imaging Services [address] [place], [place] [address] Chest PA and Lateral MR#: [id number] Acct: [id number] Name: ALBIN ISSA Rep #: [id number] : 1955 M 70 From: Allie pollock MD PCP: Dr. Speedy Boswell MD Status: REG ER Study: Chest PA and Lateral Date of Exam: 05/09/25 Exam# [id number] Ordering Dr: Kenneth Redmond DO PROCEDURE: CHEST [...] mild central pulmonary venous congestion. Reading Location: [place] [address] CC: Dr. Speedy Boswell MD; Dr. Kenneth Redmond DO Assembler Brazer: Signed Normal [facility] Chloride assayOrdered By: To maya Redmond on 05-09-2025 Chloride [Moles/Vol] 105 mmol/L 98-108 [facility] D-Dimer Quantitative (DVT/PE )on 05-09-2025 D-DIMER QUANT 0.59 FEU/ug/m Invalid Interpretation Code 0.27-0.49 [facility] Comment on above: Result Comment: D-Di kayla ELEVATED (>0.49): Additional studies and clinical assessments are indicated to conclude diagnosis of: Deep Vein Thrombosis (DVT) or Pulmonary Embolism (PE) CRITICAL VALUE CALLED TO LSPARR 05/09/25 0117 Beto Stark. RESULTS READ BACK BY SAME. Performed By: #### L 400.0001 #### [facility] [address] [place], [address] Emergency Department Summary on 05-09-2025 Emergency Department Summary [facility] Medical Records Department [address] [place] [address] Emergency Department Summary 05/09/25 MR#: [id number] Acct: [id number] Name: ALBIN ISSA Rep #: [id number] : 1955 70 From: Kenneth Quezada PCP: [...] started with sore throat. 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 Normal [facility] Eosinophil percentageOrdered By: Kenneth Redmond on 05-09-2025 Eosinophils/100 WBC (Bld) 3.9 % 0-5 [facility] Erythrocyte distribution wid th ratioOrdered By: Kenneth Redmond on 05-09-2025 Erythrocyte distribution width (RBC) [Ratio] 13.3 % 11.6-14.6 [facility] Erythrocyte distribution wid th standard deviationOrdered By: Kenneth Redmond on 05-09-2025 Erythrocyte distribution width (RBC) [Ratio] 43.5 fl 35.1-43.9 [facility] Glomerular filtration rate ( GFR) estimation/1.73 sq m using serum, plasma, or whole bOrdered By: Kenneth Redmond on 05-09-2025 GFR/1.73 sq M.predicted among non-blacks MDRD (S/P/Bld) [Vol rate/Area] 62 mL/min/{1.73_m2} >60 [facility] Comment on above: mL/min/1.73m2 CKD-EP I Creatinine Equation (2020) Hematocrit Auto (Bld) [Volum e fraction]Ordered By: Kenneth Redmond on 05-09-2025 Hematocrit (Bld) [Volume fraction] 44.4 % 40-54 [facility] Hemoglobin measurementOrdere d By: Kenneth Redmond on 05-09-2025 Hemoglobin (Bld) [Mass/Vol] 15.0 g/dL 13.0-16.5 [facility] Immature granulocytes/100 WB C Auto (Bld)Ordered By: Kenneth Redmond on 05-09-2025 Immature granulocytes/100 WBC (Bld) 0.600 % 0.0-0.9 [facility] Comment on above: IG% - Immature Granu locytes (promyelocytes, myelocytes and metamyelocytes) > 1% indicates that a LEFT SHIFT is Present. International normalized rat io (INR) calculationOrdered By: Kenneth Redmond on 05-09-2025 INR Coag (Bld) [Relative time] 1.0 {INR} [facility] L499.0042on 05-09-2025 Trop T High Sen 14 ng/L Normal <=22 [facility] Comment on above: Performed By: #### L 499.0042 #### [facility] [address] [facility] [address] L499.0043on 05-09-2025 Trop T High Sen Normal <=22 [facility] Comment on above: Result Comment: Canc elled via OM: Order cancelled - Patient discharged Performed By: #### L 499.0043 #### [facility] [address] [place], [address] L501.4021on 05-09-2025 Trop T High Sen 14 ng/L Normal <=22 [facility] Comment on above: Performed By: #### L 400.0001 #### [facility] [address] [place], [address] L503.7505on 05-09-2025 Natriuretic peptide B (Bld) [Mass/Vol] 86 pg/mL Normal <=900 [facility] Comment on above: Result Comment: Hear t Failure Unlikely: < 300 pg/mL Heart Failure Likely < 50 Years: > 450 pg/mL 50-75 Years: > 900 pg/mL >75 Years: > 1800 pg/mL Performed By: #### L 400.0001 #### [facility] [address] [place], [address] MCV (mean corpuscular volume ) determinationOrdered By: Kenneth Redmond on 05-09-2025 MCV (RBC) [Entitic vol] 89.3 fL 80-94 [facility] Mean corpuscular hemoglobin (MCH) determinationOrdered By: Kenneth Redmond on 05-09-2025 MCH (RBC) [Entitic mass] 30.2 pg 27.0-32.0 [facility] Mean corpuscular hemoglobin concentration (MCHC) determinationOrdered By: Kenneth Redmond on 05-09-2025 MCHC (RBC) [Mass/Vol] 33.8 g/dL 32-36 [facility] Mean platelet volume determi nationOrdered By: Kenneth Redmond on 05-09-2025 Platelet mean volume (Bld) [Entitic vol] 9.7 fL 6.2-12.0 [facility] Monocyte percentageOrdered B y: Kenneth Redmond on 05-09-2025 Monocytes/100 WBC (Bld) 9.3 % 0-10 [facility] Natriuretic peptide.B prohor froy N-Terminal [Mass/volume] in Serum or PlasmaOrdered By: Kenneth Redmond on 05-09-2025 Natriuretic peptide.B prohormone N-Terminal [Mass/Vol] 86 pg/mL <900 [facility] Comment on above: Heart Failure Unlike ly: < 300 pg/mLHeart Failure Likely< 50 Years: > 450 pg/mL50-75 Years: > 900 pg/mL>75 Years: > 1800 pg/mL Neutrophil percentageOrdered By: Kenneth Redmond on 05-09-2025 Neutrophils/100 WBC (Bld) 61.0 % 47-70 [facility] Nucleated red blood cell per centageOrdered By: Kenneth Redmond on 05-09-2025 Nucleated RBC/100 WBC (Bld) [Ratio] 0 % 0-5 [facility] Partial Thromboplast Timeon 05-09-2025 aPTT Coag (Bld) [Time] 24.4 s Normal 24.1-36.2 [facility] Comment on above: Performed By: #### L 400.0001 #### [facility] [address] [place], [address] Platelet countOrdered By: Magdi Redmond on 05-09-2025 Platelets (Bld) [#/Vol] 221 10*3/uL 150-450 [facility] Potassium measurement (mass/ volume)Ordered By: Kenneth Redmond on 05-09-2025 Potassium (Unsp spec) [Mass/Vol] 3.5 mmol/L 3.3-5.1 [facility] Prothrombin Time w/INRon INR Coag (PPP) [Relative time] 1.0 {INR} Normal [facility] Comment on above: Performed By: #### L 400.0001 #### [facility] [address] [place], [address] PT Coag (PPP) [Time] 12.8 s Normal 11.7-14.9 [facility] Comment on above: Performed By: #### L 400.0001 #### [facility] [address] [place], [address] Prothrombin timeOrdered By: Kenneth Redmond on 05-09-2025 PT Coag (PPP) [Time] 12.8 s 11.7-14.9 [facility] RBC Auto (Bld) [#/Vol]Ordere d By: Kenneth Redmond on 05-09-2025 RBC (Bld) [#/Vol] 4.97 10*6/uL 4.6-6.2 [facility] Serum creatinine measurement (mass/volume)Ordered By: Kenneth Redmond on 05-09-2025 Creatinine [Mass/Vol] 1.25 mg/dL High 0.70-1.20 [facility] Serum glucose measurement (m ass/volume)Ordered By: Kenneth Redmond on 05-09-2025 Glucose [Mass/Vol] 88 mg/dL 70-99 [facility] Serum or plasma calcium raul urement (mass/volume)Ordered By: Kenneth Redmond on 05-09-2025 Calcium [Mass/Vol] 9.7 mg/dL 7.6-11.0 [facility] Serum or plasma urea nitroge n measurement (mass/volume)Ordered By: Kenneth Redmond on 05-09-2025 Urea nitrogen [Mass/Vol] 20 mg/dL High 4-19 [facility] Sodium levelOrdered By: Kenneth Redmond on 05-09-2025 Sodium [Moles/Vol] 140 mmol/L 133-145 [facility] Troponin T.cardiac [Mass/vol ume] in Serum or Plasma by High sensitivity methodOrdered By: Kenneth Redmond on 05-09-2025 Troponin T.cardiac High sensitivity method [Mass/Vol] 14 ng/L <22 [facility] Troponin T.cardiac High sensitivity method [Mass/Vol] 14 ng/L <22 [facility] White blood cell (WBC) count Ordered By: Kenneth Redmond on 05-09-2025 WBC (Bld) [#/Vol] 7.7 10*3/uL 4.4-11.0 [facility] Cardiology Visit Reporton Cardiology Visit Report [facility] [address] [place] [address] OFFICE VISIT Date of Service: 05/03/25 MR#: [id number] Acct: [id number] Name: ALBIN ISSA Rep #: [id number] : 1955 Provider: Dr. Delilah Foster MD Age/Sex: 70/M Location: [facility] Status: Signed HPI HPI History of Present [...] without angina pectoris Atherosclerotic heart disease of [place] coronary artery without angina pectoris Automatic implantable [...] epicondylitis of left elbow Left elbow pain care home use of drug Lymphedema of Right Leg Lymphedema of right lower extremity Mixed hyperlipidemia Morbid obesity with BMI of 40.0-44.9, adult Obesity (BMI 30-39.9) Over 65 years old Pacemaker Paresthesia of left upper extremity Phantom pain after amputation of lower extremity Renal calculi Shortness of breath SIRS (systemic inflammatory res (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 Normal [facility] Pacemaker Checkon 01-25-[address] [facility] [address] [place], [place] [address] Pacemaker Check Date of Service: 01/25/251536 MR#: [id number] Acct: [id number] Name: ALBIN ISSA Rep #: [id number] : 1955 From: Bethany Deng Age/Sex: 69/M Location: [facility] Status: Signed Billing Codes ICD Device Billin ICD Dev Prog Eval, Dual Assessment and Plan Assessment and Plan (1) ICD (implantable cardioverter-defibril lator) in place: Status: Chronic Comment: ICD Implant 2009 (2) Ischemic cardiomyopathy: Status: Chronic Comment: EF 45%. Stage I diastolic dysfunction 01/25/251537 Date Bethany Perera Signature: Date (if applicable) CC: Normal [facility] Comprehensive Metabolic Prof ilon 12-11-2024 Albumin [Mass/Vol] 3.6 g/dL Normal 3.2-5.0 [facility] Comment on above: Performed By: #### L 400.0001 #### [facility] [address] [place], [place], [address] Albumin/Globulin [Mass ratio] 1.1 {ratio} Normal 0.9-2.4 [facility] Comment on above: Performed By: #### L 400.0001 #### [facility] [address] [facility] [address] [place], [place], [address] ALK P 148 U/L High 45-117 [facility] Comment on above: Performed By: #### L 400.0001 #### [facility] [address] [place], [address] ALT [Catalytic activity/Vol] 34 U/L Normal 16-61 [facility] Comment on above: Performed By: #### L 400.0001 #### [facility] [address] [place], [address] AST [Catalytic activity/Vol] 14 U/L Low 15-37 [facility] Comment on above: Performed By: #### L 400.0001 #### [facility] [address] [place], [address] Bilirubin [Mass/Vol] 0.40 mg/dL Normal 0.20-1.00 [facility] Comment on above: Result Comment: For patients on eltrombopag therapy, use of Dimension Brunson TBIL is not recommended. Performed By: #### L 400.0001 #### [facility] [address] [place], [address] BUN/CRE 12.3 RATIO Normal 10-20 [facility] Comment on above: Performed By: #### L 400.0001 #### [facility] [address] [place], [address] CA,Total 9.9 mg/dL Normal 8.5-10.1 [facility] Comment on above: Performed By: #### L 400.0001 #### [facility] [address] [place], [address] Chloride [Moles/Vol] 108 mmol/L High 98-107 [facility] Comment on above: Performed By: #### L 400.0001 #### [facility] [address] [place], [address] CO2 [Moles/Vol] 28.0 mmol/L Normal 21.0-32.0 [facility] Comment on above: Performed By: #### L 400.0001 #### [facility] [address] [place], [address] Creatinine [Mass/Vol] 1.06 mg/dL Normal 0.70-1.30 [facility] Comment on above: Result Comment: The validity of the calculated GFR GFRAA in patients over 70 years has not been determined. Clinical correlation is essential. Performed By: #### L 400.0001 #### [facility] [address] [place], [address] EST GFR - AA 89 mL/min Normal >60 [facility] Comment on above: Result Comment: Afri can Portuguese GFR Calc Performed By: #### L 400.0001 #### [facility] [address] [place], [address] GAP 4 Low 5-15 [facility] Comment on above: Performed By: #### L 400.0001 #### [facility] [address] [place], [address] GFR/1.73 sq M.predicted among non-blacks MDRD (S/P/Bld) [Vol rate/Area] 74 mL/min/{1.73_m2} Normal >60 [facility] Comment on above: Result Comment: Non- GFR Calc Performed By: #### L 400.0001 #### [facility] [address] [place], [address] Globulin (S) [Mass/Vol] 3.4 g/dL Normal 2.2-4.[address] [facility] Comment on above: Performed By: #### L 400.0001 #### [facility] [address] [place], [address] Glucose [Mass/Vol] 126 mg/dL High 74-106 [facility] Comment on above: Result Comment: Fast ing Glucose result greater than or equal to 126 mg/dL suggests DIABETES MELLITUS per A.D.A. criteria. Performed By: #### L 400.0001 #### [facility] [address] [place], [address] Potassium [Moles/Vol] 3.6 mmol/L Normal 3.5-5.1 [facility] Comment on above: Performed By: #### L 400.0001 #### [facility] [address] [place], [address] Sodium [Moles/Vol] 140 mmol/L Normal 136-145 [facility] Comment on above: Performed By: #### L 400.0001 #### [facility] [address] [place], [address] T PROT 7.0 g/dL Normal 6.4-8.2 [facility] Comment on above: Performed By: #### L 400.0001 #### [facility] [address] [place], [address] Urea nitrogen [Mass/Vol] 13 mg/dL Normal 7-18 [facility] Comment on above: Performed By: #### L 400.0001 #### [facility] [address] [place], [address] Hemoglobin A1con 12-11-2024 HbA1c (Bld) [Mass fraction] 6.0 % High 3.8-5.6 [facility] Comment on above: Result Comment: Norm al < 5.7 % Prediabetic 5.7 - 6.4 % Diabetic >or= 6.5 % Please note range changes. Performed By: #### L 400.0001 #### [facility] [address] [place], [address] Lipid Profileon 12-11-2024 Cholesterol [Mass/Vol] 113 mg/dL Normal 200 [facility] Comment on above: Result Comment: <200 mg/dL Desirable 200-240 mg/dL Borderline >240 mg/dL High Risk Performed By: #### L 400.0001 #### [facility] [address] [place], [address] Cholesterol in HDL [Mass/Vol] 50 mg/dL Normal [facility] Comment on above: Result Comment: The drugs N-Acetylcysteine and Metamizole may falsely depress this assay. Reference Range HDL <40 mg/dL Low HDL Cholesterol HDL >or= 60 mg/dL High HDL Cholesterol Performed By: #### L 400.0001 #### [facility] [address] [place], [address] Cholesterol in LDL [Mass/Vol] 39 mg/dL Normal 0-130 [facility] Comment on above: Performed By: #### L 400.0001 #### [facility] [address] [place], [address] Cholesterol in VLDL [Mass/Vol] 24 mg/dL Normal 5-40 [facility] Comment on above: Performed By: #### L 400.0001 #### [facility] [address] [place], [address] Triglyceride [Mass/Vol] 122 mg/dL Normal W [facility] Comment on above: Result Comment: The drugs N-Acetylcysteine and Metamizole may falsely depress this assay. Serum Triglycerides Reference Interval Normal <150 mg/dL Borderline high 150 - 199 mg/dL High 200 - 499 mg/dL Very High > or = 500 mg/dL Performed By: #### L 400.0001 #### [facility] [address] [place], [address] Protein+Creatinine Ratio,Uri neon 12-11-2024 PROT:CRE RATIO Normal 0-200 [facility] Comment on above: Result Comment: UTO Performed By: #### L 400.0001 #### [facility] [address] [place], [address] PROTEIN,UR.RAN. Normal <11.9 [facility] Comment on above: Result Comment: UTO Performed By: #### L 400.0001 #### [facility] [address] [place], [address] UR CREAT Normal NO RANGE EST. [facility] Comment on above: Result Comment: UTO Performed By: #### L 400.0001 #### [facility] [address] [place], [address] Bedside Glucoseon 11-18-2024 FINGERSTICK GLU 109 mg/dL High 74-106 [facility] Comment on above: Result Comment: EVAN MELISSA OF PATIENT CARE PER NURSING PROTOCOL Performed By: #### L 500.2500, L100.0100 #### [facility] [address] [place], [address] Discharge Instructionon 11-01 Discharge Instruction [facility] Medical Records Department [address] [place] [address] Instructions for Home/Discharge Instructions 11/18/24 0733 MR#: [id number] Acct: [id number] Name: ALBIN ISSA Rep #: [id number] : 1955 69 From: Ravi Holder MD PCP: Dr. Speedy Boswell MD Status:DEP [facility] Discharge Instructions DC O2, CPAP, BIPAP needs Additional Home O2 Discharge instructions: No Follow Up Care Test Results: Test results from this visit will be discussed in further detail at your follow-up appointment, if applicable. Discharge Plan Admission Primary Reason for Your Visit: left laser stone Attending Provider: Ravi Holder Primary Care Provider: Speedy Boswell Instructions Print Language: Austrian Discharge Orders/Prescriptions Prescriptions: New ciprofloxacin HCl [Cipro] [...] MD CC: Dr. Speedy Boswell MD Signed [facility] MR/POSTOP.MANDY 11-18-2024 [facility] Records Department [address] [place] [address] Anesthesia Postop Eval I 11/18/24 1008 MR#: [id number] Acct: [id number] Name: ALBIN ISSA Rep #: [id number] : 1955 69 From: Milka Gillis PCP: Dr. Speedy Boswell MD Status:REG LAC Y Race: C Location: [place] [address] Anesthesia: Postop Eval I Current Vital Signs [...] Milka Perera Signature: Date CC: Signed Normal [facility] MR/ACPNOKGN2zm 11-18-2024 /[facility] Medical Records Department [address] [place] [address] Anesthesia Postop Eval II 11/18/24 1102 MR#: [id number] Acct: [id number] Name: ALBIN ISSA Rep #: [id number] : 1955 69 From: Niall Mayes MD PCP: Dr. 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 OPERATOR.CSIR Spontaneous unlabored Yes 11/18/24 10:08 EMBOSSOGRAPH OPERATOR.CSIR respirations Mental status nausea No 11/18/24 10:08 EMBOSSOGRAPH OPERATOR.CSIR Vomiting No 11/18/24 10:08 EMBOSSOGRAPH OPERATOR.CSIR Anesthesia Postop Eval I: Fluid Summary Crystalloid volume administer 800 11/18/24 10:08 EMBOSSOGRAPH OPERATOR.CSIR (ml) Colloids volume administered ( ml) Blood Product volume administered (ml) Total IV fluid infused 800 11/18/24 10:08 EMBOSSOGRAPH OPERATOR.CSIR Anesthesia Postop Eval I: Summary Notes Anesthesia Complication No 11/18/24 10:08 EMBOSSOGRAPH OPERATOR.CSIR Anesthesia Complication Comment: Post-operative progress note Anesthesia: Postop Eval II Evaluation Mental status: Awake Pain Level: 0 nausea: No Vomiting: No 11/18/24 1102 Date Niall Perera Signature: Date CC: Signed Normal [facility] Operative Reporton 4 Operative Report [facility] Medical Records Department [address] [place] [address] Operative Report 11/18/24 0958 MR#: [id number] Acct: [id number] Name: ALBIN ISSA Rep #: [id number] : 1955 69 From: Ravi Holder MD PCP: Dr. Speedy Boswell MD Status:[facility] Location: [place] [address] Operative Report (Standard) Operative Information Date of Procedure: 11/18/24 Pre-Operative Diagnosis: Left kidney stone Post-Operative Diagnosis: The same Surgery/Procedure Performed: Cystoscopy left ureteroscopy laser lithotripsy of stone, no stent chip frier: No Type of Anesthesia: General RN Documented [...] went into the bladder with a 21 Tristanian rigid cystourethroscope through the urethra. Upon entering [...] MD; Dr. Speedy Boswell MD Signed Normal [facility] Cardiology Visit Reporton Cardiology Visit Report [facility] [address] [place] [address] OFFICE VISIT Date of Service: 11/04/24 MR#: [id number] Acct: [id number] Name: ALBIN ISSA Rep #: [id number] : 1955 Provider: Dr. Delilah Foster MD Age/Sex: 69/M Location: [facility] Status: Signed HPI HPI History of Present [...] NIBP Intake Visit Reasons: 6 M FU Donor Services Specialist Required: No Accompanied by: Self Is [...] without angina pectoris Atherosclerotic heart disease of [place] coronary artery without angina pectoris Automatic implantable [...] epicondylitis of left elbow Left elbow pain care home use of drug Lymphedema of Right Leg [...] Surgical Histo (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 Normal [facility] Emergency Department Summary on 10-26-2024 Emergency Department Summary [facility] Medical Records Department [address] [place] [address] Emergency Department Summary 10/26/24 MR#: [id number] Acct: [id number] Name: ALBIN ISSA Rep #: [id number] : 1955 69 From: Joce Serrano MD [...] similar symptoms: Yes Recent Illness/Hospitalizati on: Yes [facility] Medical History Coronary atherosclerosis of bypass [...] (gastroesophageal reflux disease) Atherosclerotic heart disease of [place] coronary artery without angina pectoris Shortness of breath History of 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 care home use of drug Ischemic cardiomyopathy ( 10/30/23) [...] #8 07/ (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 Normal [facility] Abdomen/Pelvis without Conto n 10-21-2024 Abdomen/Pelvis without Cont [facility] Imaging Services [address] [place] [address] Abdomen/Pelvis without Cont MR#: [id number] Acct: [id number] Name: ALBIN ISSA Rep #: [id number] : 1955 M 69 From: Louis Steiner PCP: Dr. Speedy Boswell MD Status: [facility] ER Study: Abdomen/Pelvis without Cont Date of Exam: 10/03 Exam# [id number] Ordering Dr: Manuel Hart DO [id number] EXAM: CT ABDOMEN AND PELVIS WITHOUT INTRAVENOUS [...] Dr. Speedy Boswell MD; Manuel Hart DO Assembler Brazer: Signed Normal [facility] Basic Metabolic Profile (BMP )on 10-21-2024 BUN/CRE 11.9 RATIO Normal 09-20 [facility] Comment on above: Performed By: #### L 500.2500, L100.0100 #### [facility] [address] [place], [address] CA,Total 9.6 mg/dL Normal 8.5-10.1 [facility] Comment on above: Performed By: #### L 500.2500, L100.0100 #### [facility] [address] [place], [address] Chloride [Moles/Vol] 107 mmol/L Normal 98-107 [facility] Comment on above: Performed By: #### L 500.2500, L100.0100 #### [facility] [address] [place], [address] CO2 [Moles/Vol] 26.0 mmol/L Normal 21.0-32.0 [facility] Comment on above: Performed By: #### L 500.2500, L100.0100 #### [facility] [address] [place], [address] Creatinine [Mass/Vol] 1.26 mg/dL Normal 0.70-1.30 [facility] Comment on above: Result Comment: The validity of the calculated GFR GFRAA in patients over 70 years has not been determined. Clinical correlation is essential. Performed By: #### L 500.2500, L100.0100 #### [facility] [address] [place], [address] ECRCL 73.08 ml/min Normal [facility] Comment on above: Performed By: #### L 500.2500, L100.0100 #### [facility] [address] [place], [address] EST GFR - AA 73 mL/min Normal >60 [facility] Comment on above: Result Comment: Afri can Portuguese GFR Calc Performed By: #### L 500.2500, L100.0100 #### [facility] [address] [place], [address] GAP 5 Normal 5-15 [facility] Comment on above: Performed By: #### L 500.2500, L100.0100 #### [facility] [address] [place], [address] GFR/1.73 sq M.predicted among non-blacks MDRD (S/P/Bld) [Vol rate/Area] 60 mL/min/{1.73_m2} Normal >60 [facility] Comment on above: Result Comment: Non- GFR Calc Performed By: #### L 500.2500, L100.0100 #### [facility] [address] [place], [address] Glucose [Mass/Vol] 141 mg/dL High 74-106 [facility] Comment on above: Result Comment: Fast ing Glucose result greater than or equal to 126 mg/dL suggests DIABETES MELLITUS per A.D.A. criteria. Performed By: #### L 500.2500, L100.0100 #### [facility] [address] [place], [address] Potassium [Moles/Vol] 3.5 mmol/L Normal 3.5-5.1 [facility] Comment on above: Performed By: #### L 500.2500, L100.0100 #### [facility] [address] [place], [address] Sodium [Moles/Vol] 138 mmol/L Normal 136-145 [facility] Comment on above: Performed By: #### L 500.2500, L100.0100 #### [facility] [address] [place], [address] Urea nitrogen [Mass/Vol] 15 mg/dL Normal 7-18 [facility] Comment on above: Performed By: #### L 500.2500, L100.0100 #### [facility] [address] [place], [address] CBC W/Diff, Automatedon 11-2 0-2024 Absolute Lymph 1.63 X10 3/uL Normal 0.83-4.51 [facility] Comment on above: Performed By: #### L 500.2500, L100.0100 #### [facility] [address] [place], [address] Absolute Neut 4.7 X10 3/uL Normal 2.0-7.7 [facility] Comment on above: Performed By: #### L 500.2500, L100.0100 #### [facility] [address] [place], [address] Basophils/100 WBC (Bld) 0.7 % Normal 0-1 [facility] Comment on above: Performed By: #### L 500.2500, L100.0100 #### [facility] [address] [place], [address] Eosinophils/100 WBC (Bld) 2.2 % Normal 0-5 [facility] Comment on above: Performed By: #### L 500.2500, L100.0100 #### [facility] [address] [place], [address] Erythrocyte distribution width (RBC) [Ratio] 13.0 % Normal 11.6-14.6 [facility] Comment on above: Performed By: #### L 500.2500, L100.0100 #### [facility] [address] [place], [address] Hematocrit (Bld) [Volume fraction] 41.9 % Normal 40-54 [facility] Comment on above: Performed By: #### L 500.2500, L100.0100 #### [facility] [address] [place], [address] Hemoglobin (Bld) [Mass/Vol] 14.1 g/dL Normal 13.0-16.5 [facility] Comment on above: Performed By: #### L 500.2500, L100.0100 #### [facility] [address] [place], [address] IG% 0.400 Normal 0.0-0.9 [facility] Comment on above: Result Comment: IG% - Immature Granulocytes (promyelocytes, myelocytes and metamyelocytes) > 1% indicates that a LEFT SHIFT is Present. Performed By: #### L 500.2500, L100.0100 #### [facility] [address] [place], [address] Lymphocytes/100 WBC (Bld) 22.6 % Normal 19-41 [facility] Comment on above: Performed By: #### L 500.2500, L100.0100 #### [facility] [address] [place], [address] MCH (RBC) [Entitic mass] 30.1 pg Normal 27.0-32.0 [facility] Comment on above: Performed By: #### L 500.2500, L100.0100 #### [facility] [address] [place], [address] MCHC (RBC) [Mass/Vol] 33.7 g/dL Normal 32-36 [facility] Comment on above: Performed By: #### L 500.2500, L100.0100 #### [facility] [address] [place], [address] MCV (RBC) [Entitic vol] 89.3 fL Normal 80-94 [facility] Comment on above: Performed By: #### L 500.2500, L100.0100 #### [facility] [address] [place], [address] Monocytes/100 WBC (Bld) 8.3 % Normal 0-10 [facility] Comment on above: Performed By: #### L 500.2500, L100.0100 #### [facility] [address] [place], [address] Neutrophils/100 WBC (Bld) 65.8 % Normal 47-70 [facility] Comment on above: Performed By: #### L 500.2500, L100.0100 #### [facility] [address] [place], [address] Nucleated RBC (Bld) [#/Vol] 0 10*3/uL Normal 0-5 [facility] Comment on above: Performed By: #### L 500.2500, L100.0100 #### [facility] [address] [place], [address] Platelet mean volume (Bld) [Entitic vol] 9.6 fL Normal 6.2-12.0 [facility] Comment on above: Performed By: #### L 500.2500, L100.0100 #### [facility] [address] [place], [address] Platelets (Bld) [#/Vol] 202 10*3/uL Normal 150-450 [facility] Comment on above: Performed By: #### L 500.2500, L100.0100 #### [facility] [address] [place], [address] RBC (Bld) [#/Vol] 4.69 10*6/uL Normal 4.6-6.2 [facility] Comment on above: Performed By: #### L 500.2500, L100.0100 #### [facility] [address] [place], [address] RDW SD 42.3 fl Normal 35.1-43.9 [facility] Comment on above: Performed By: #### L 500.2500, L100.0100 #### [facility] [address] [place], [address] WBC (Bld) [#/Vol] 7.2 10*3/uL Normal 4.4-11.0 [facility] Comment on above: Performed By: #### L 500.2500, L100.0100 #### [facility] [address] [place], [address] Emergency Department Summary on 10-21-2024 Emergency Department Summary [facility] Medical Records Department [address] [place] [address] Emergency Department Summary 10/21/24 MR#: [id number] Acct: [id number] Name: ALBIN ISSA Rep #: [id number] : 1955 69 From: Manuel Hart DO PCP: Dr. Speedy Boswell MD Status:DEP ER Location: ED HPI History of Present Illness Chief Complaint: Flank Pain Informant: patient Narrative Narrative: Patient is a 69-year-old male with past medical history of hypertension hyperlipidemia coronary artery disease as well as previous rtadq-frn-gltd amputation on right. He states he is [...] concern for this he presents for evaluation [facility] Medical History Coronary atherosclerosis of bypass [...] (gastroesophageal reflux disease) Atherosclerotic heart disease of [place] coronary artery without angina pectoris Shortness of breath History of 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 watermaster use of drug Ischemic cardiomyopathy ( 10/30/23) [...] 10/20/24 23:39 (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 Normal [facility] Urinalysis, Completeon 10-21 WBC 0-5 SEEN Normal 0-5 [facility] Comment on above: Order Comment: TASHI CTOR TO SPECIFY Performed By: #### L 400.0001 #### [facility] [address] [place], [address] BACTERIA 0 SEEN Normal None Seen [facility] Comment on above: Order Comment: TASHI CTOR TO SPECIFY Performed By: #### L 400.0001 #### [facility] [address] [place], [address] EPI,SQUAMOUS 0 SEEN Normal 0-5 [facility] Comment on above: Order Comment: TASHI CTOR TO SPECIFY Performed By: #### L 400.0001 #### [facility] [address] [place], [address] Mucus Ql (Urine sed) 0 SEEN Normal [facility] Comment on above: Order Comment: TASHI CTOR TO SPECIFY Performed By: #### L 400.0001 #### [facility] [address] [place], [address] RBC 0 SEEN Normal 0-5 [facility] Comment on above: Order Comment: TASHI CTOR TO SPECIFY Performed By: #### L 400.0001 #### [facility] [address] [place], [address] Comprehensive Metabolic Prof ilon 09-10-2024 Albumin [Mass/Vol] 3.7 g/dL Normal 3.2-5.0 [facility] Comment on above: Performed By: #### L 500.4100, L502.0500, L500.4050 #### [facility] [address] [place], [address] Albumin/Globulin [Mass ratio] 1.0 {ratio} Normal 0.9-2.4 [facility] Comment on above: Performed By: #### L 500.4100, L502.0500, L500.4050 #### [facility] [address] [place], [address] ALK P 136 U/L High 45-117 [facility] Comment on above: Performed By: #### L 500.4100, L502.0500, L500.4050 #### [facility] [address] [place], [address] ALT [Catalytic activity/Vol] 34 U/L Normal 16-61 [facility] Comment on above: Performed By: #### L 500.4100, L502.0500, L500.4050 #### [facility] [address] [place], [address] AST [Catalytic activity/Vol] 19 U/L Normal 15-37 [facility] Comment on above: Performed By: #### L 500.4100, L502.0500, L500.4050 #### [facility] [address] [place], [address] Bilirubin [Mass/Vol] 0.70 mg/dL Normal 0.20-1.00 [facility] Comment on above: Result Comment: For patients on eltrombopag therapy, use of Dimension Brunson TBIL is not recommended. Performed By: #### L 500.4100, L502.0500, L500.4050 #### [facility] [address] [place], [address] BUN/CRE 16.0 RATIO Normal 10-20 [facility] Comment on above: Performed By: #### L 500.4100, L502.0500, L500.4050 #### [facility] [address] [place], [address] CA,Total 10.3 mg/dL High 8.5-10.1 [facility] Comment on above: Performed By: #### L 500.4100, L502.0500, L500.4050 #### [facility] [address] [place], [address] Chloride [Moles/Vol] 108 mmol/L High 98-107 [facility] Comment on above: Performed By: #### L 500.4100, L502.0500, L500.4050 #### [facility] [address] [place], [address] CO2 [Moles/Vol] 24.0 mmol/L Normal 21.0-32.0 [facility] Comment on above: Performed By: #### L 500.4100, L502.0500, L500.4050 #### [facility] [address] [place], [address] Creatinine [Mass/Vol] 1.00 mg/dL Normal 0.70-1.30 [facility] Comment on above: Result Comment: The validity of the calculated GFR GFRAA in patients over 70 years has not been determined. Clinical correlation is essential. Performed By: #### L 500.4100, L502.0500, L500.4050 #### [facility] [address] [place], [address] EST GFR - AA 95 mL/min Normal >60 [facility] Comment on above: Result Comment: Afri can Portuguese GFR Calc Performed By: #### L 500.4100, L502.0500, L500.4050 #### [facility] [address] [place], [address] GAP 5 Normal 5-15 [facility] Comment on above: Performed By: #### L 500.4100, L502.0500, L500.4050 #### [facility] [address] [place], [address] GFR/1.73 sq M.predicted among non-blacks MDRD (S/P/Bld) [Vol rate/Area] 79 mL/min/{1.73_m2} Normal >60 [facility] Comment on above: Result Comment: Non- GFR Calc Performed By: #### L 500.4100, L502.0500, L500.4050 #### [facility] [address] [place], [address] Globulin (S) [Mass/Vol] 3.6 g/dL Normal 2.2-4.[address] [facility] Comment on above: Performed By: #### L 500.4100, L502.0500, L500.4050 #### [facility] [address] [place], [address] Glucose [Mass/Vol] 119 mg/dL High 74-106 [facility] Comment on above: Result Comment: Fast ing Glucose result from 100 to 125 mg/dL suggests IMPAIRED HOMEOSTASIS per A.D.A. criteria. Performed By: #### L 500.4100, L502.0500, L500.4050 #### [facility] [address] [place], [address] Potassium [Moles/Vol] 4.3 mmol/L Normal 3.5-5.1 [facility] Comment on above: Performed By: #### L 500.4100, L502.0500, L500.4050 #### [facility] [address] [place], [address] Sodium [Moles/Vol] 138 mmol/L Normal 136-145 [facility] Comment on above: Performed By: #### L 500.4100, L502.0500, L500.4050 #### [facility] [address] [place], [address] T PROT 7.3 g/dL Normal 6.4-8.2 [facility] Comment on above: Performed By: #### L 500.4100, L502.0500, L500.4050 #### [facility] [address] [place], [address] Urea nitrogen [Mass/Vol] 16 mg/dL Normal 7-18 [facility] Comment on above: Performed By: #### L 500.4100, L502.0500, L500.4050 #### [facility] [address] [place], [address] Lipid Profileon 09-10-2024 Cholesterol [Mass/Vol] 118 mg/dL Normal 200 [facility] Comment on above: Result Comment: <200 mg/dL Desirable 200-240 mg/dL Borderline >240 mg/dL High Risk Performed By: #### L 500.4100, L502.0500, L500.4050 #### [facility] [address] [place], [address] Cholesterol in HDL [Mass/Vol] 39 mg/dL Low [facility] Comment on above: Result Comment: The drugs N-Acetylcysteine and Metamizole may falsely depress this assay. Reference Range HDL <40 mg/dL Low HDL Cholesterol HDL >or= 60 mg/dL High HDL Cholesterol Performed By: #### L 500.4100, L502.0500, L500.4050 #### [facility] [address] [place], [address] Cholesterol in LDL [Mass/Vol] 55 mg/dL Normal 0-130 [facility] Comment on above: Performed By: #### L 500.4100, L502.0500, L500.4050 #### [facility] [address] [place], [address] Cholesterol in VLDL [Mass/Vol] 24 mg/dL Normal 5-40 [facility] Comment on above: Performed By: #### L 500.4100, L502.0500, L500.4050 #### [facility] [address] [place], [address] Triglyceride [Mass/Vol] 121 mg/dL Normal [facility] Comment on above: Result Comment: The drugs N-Acetylcysteine and Metamizole may falsely depress this assay. Serum Triglycerides Reference Interval Normal <150 mg/dL Borderline high 150 - 199 mg/dL High 200 - 499 mg/dL Very High > or = 500 mg/dL Performed By: #### L 500.4100, L502.0500, L500.4050 #### [facility] [address] [place], [address] Microalbumin,Random Urineon 09-10-2024 MICROALBUMIN,UR 11.2 mg/L Normal NO RANGE EST. [facility] Comment on above: Performed By: #### L 500.4100, L502.0500, L500.4050 #### [facility] [address] [place], [address] Extremity Upper without Cont raon 08-01-2024 Extremity Upper without Contra [facility] Imaging Services [address] [place] [address] Extremity Upper without Contra MR#: [id number] Acct: [id number] Name: ALBIN ISSA Rep #: [id number] : 1955 M 69 From: Jhon Gage MD PCP: Dr. Speedy Boswell MD Status: REG CLI Study: Extremity Upper without Contra Date of Exam: 0 08/01/24 Exam# [id number] Ordering Dr: Speedy Boswell MD [id number] EXAM: CT RIGHT UPPER EXTREMITY WITHOUT INTRAVENOUS [...] Signed: Jhon Gage MD at 23:55 EDT Reading Location ID and State: [facility] / [place] Tel , Service support , CC: Dr. Speedy Boswell MD Assembler Brazer: Signed Normal [facility] Extremity Upper without Contra [facility] Imaging Services [address] [place] [address] Extremity Upper without Contra MR#: [id number] Acct: [id number] Name: ALBIN ISSA Rep #: [id number] : 1955 M 69 From: Jhon Gage MD PCP: Dr. Speedy Boswell MD Status: REG CLI Study: Extremity Upper without Contra Date of Exam: 0 08/01/24 Exam# [id number] Ordering Dr: Speedy Boswell MD [id number] EXAM: CT LEFT UPPER EXTREMITY WITHOUT INTRAVENOUS [...] EDT , CC: Dr. Speedy Boswell MD Assembler Brazer: Signed [facility] Office Visiton 03-30-2024 Follow-up visit [id number] Albin Issa 1955 M Date Provider Department Center 03/30/2024 [facility] None Family History Problem Relation Age of Onset Heart attack Mother Cancer Father Comments: liver Family Status - Relation Status Age at Mother Father Daughter Alive Level of Service:98598 [place] OFFICE/OUTPT VISIT,PROCEDURE ONLY Reason for Visit and Comments: Follow-up [397328] - USG left ankle injection [facility] PATINSon 03-30-2024 [facility] Orthopaedics and Sports Medicine Patient Care [...] the office as soon as possible at [phone] Normal [facility] Progress Noteon 03-30-2024 Progress Note [facility] ORTHOPEDICS AND SPORTS MEDICINE [address] [facility] [address] [facility] [address] Dept: [phone] Dept Chief Complaint Patient presents with Follow-up [...] to signing but 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 Normal [facility] No Panel InformationOrdered By: Hannah Howe on 01-16-2024 Prostate Specific Antigen Screen 0.33 ng/mL 0.00-4.00 [facility] Comment on above: This test was perfor med using the TPSA assay method for [employer] chemistry system. Values obtained with differentassay methods cannot be used interchangably.When changing PSA assays in the course of monitoring apatient, additional sequential testing should be carriedout to confirm baseline values. EP PROCEDURE - EPS/ABLATION/ DEVICEon 01-08-2024 EP PROCEDURE - EPS/ABLATION/DEVICE Pt is a 68M ICM s/p [facility] DC ICD, CAD s/p OR 2004, s/p CABG 2004, s/p right AKA amputation, HLD. He was evaluated in EP clinic on 11/21/2023 for consultation. He reported occasional dyspnea on exertion. Upon device evaluation on 11/21/2023, it revealed atrial lead noise and battery at [place]. He underwent successful placement of additional RA lead. Device generator exchanged. Excellent lead parameters. IV Vancomycin is utilized because: Physician/FISCAL SERVICES MANAGER/PA or pharmacist documentation of increased MRSA rate, [...] EPS/Ablation/Device Ordering Physician: DAVID RAMIREZ Order #: [id number] Study Date: 01/06/2024 Patient Information Name MRN Description Albin Issa [id number] 68 y.o. male Physicians Panel Physicians Referring [...] s/p [facility] [place] ICD, CAD s/p OR 2004, s/p CABG 2004, s/p right AKA amputation, HLD. He was evaluated in EP clinic on 11/21/2023 for consultation. He reported occasional dyspnea on exertion. Upon device evaluation on 11/21/2023, it revealed atrial lead noise and battery at [place]. He underwent successful placement of additional RA lead. Device generator exchanged. Excellent lead parameters. IV Vancomycin is utilized because: Physician/FISCAL SERVICES MANAGER/PA or pharmacist documentation of increased MRSA rate, [...] - Explanted Model/Cat number: [id number] Serial number: [id number] Date Explanted: 01/06/2024 Pocket Location: Pre-pectoral As of 01/06/2024 Status: Explanted Lead Securement: 2 set screws torqued Defibrillator Crd [id number] Fortify Asr Parylene 2 - [id number] - Implanted Inventory item: DEFIBRILLATOR CRD [id number] FORTIFY ASR PARYLENE 2 Model/Cat number: [id number] Serial number: [id number] Bag Machine Helper: GUTIERREZ VASCULAR Date Implanted: 01/06/2024 Initial Device: No Pocket Location: Pre-pectoral P (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 Normal [facility] CHEM 6 (LYTES, BUN CREA)on 0 01-07-2024 Anion gap [Moles/Vol] 13 mmol/L Normal 7-17 [facility] Comment on above: Performed By: #### Nilam HOUSE CHM6 #### [facility] (DEFAULT) [address] [place] [address]991 Chloride [Moles/Vol] 105 mmol/L Normal 98-108 [facility] Comment on above: Performed By: #### Nilam HOUSE CHM6 #### [facility] (DEFAULT) [address] [place] [address] 76879 CO2 [Moles/Vol] 25 mmol/L Normal 21-31 [facility] Comment on above: Performed By: #### Nilam HOUSE CHM6 #### [facility] (DEFAULT) [address] [place] [address] 88518 Creatinine [Mass/Vol] 1.24 mg/dL Normal 0.70-1.30 [facility] Comment on above: Performed By: #### Nilam HOUSE CHM6 #### [facility] (DEFAULT) [address] [place] [address] 02157 GFR/1.73 sq M.predicted among non-blacks MDRD (S/P/Bld) [Vol rate/Area] 63 mL/min/{1.73_m2} Normal >=60 [facility] Comment on above: Result Comment: Repo rted eGFR is based on the CKD-EPI 2020 equation using creatinine, age, and sex. Performed By: #### Nilam HOUSE CHM6 #### [facility] (DEFAULT) [address] [place] [address] 23379 Potassium [Moles/Vol] 4.2 mmol/L Normal 3.5-5.0 [facility] Comment on above: Performed By: #### Nilam HOUSE CHM6 #### [facility] (DEFAULT) [address] [place] [address] 62928 Sodium [Moles/Vol] 139 mmol/L Normal 135-145 [facility] Comment on above: Performed By: #### Nilam HOUSE CHM6 #### U [facility] (DEFAULT) [address] [place] [address] 68879 Urea nitrogen [Mass/Vol] 19 mg/dL Normal 7-25 [facility] Comment on above: Performed By: #### CHANTELL DYSON6 #### [facility] (DEFAULT) [address] [place] [address] Urea nitrogen/Creatinine [Mass ratio] 15 mg/mg Normal [facility] Comment on above: Performed By: #### CHANTELL DYSON6 #### [facility] (DEFAULT) [address] [place] [address] Anion gap [Moles/Vol] 13 mmol/L 7 - 17 mmol/L [facility] Chloride [Moles/Vol] 105 mmol/L 98 - 10 8 mmol/L [facility] CO2 [Moles/Vol] 25 mmol/L 21 - 31 mmol/L [facility] Creatinine [Mass/Vol] 1.24 mg/dL 0.70 - 1.30 mg/dL [facility] eGFR, CKD-EPI, Male 63 - PINF [facility] Comment on above: Reported eGFR is bas ed on the CKD-EPI 2020 equation using creatinine, age, and sex. Potassium [Moles/Vol] 4.2 mmol/L 3.5 - 5.0 mmol/L [facility] Sodium [Moles/Vol] 139 mmol/L 135 - 145 mmol/L [facility] Urea nitrogen [Mass/Vol] 19 mg/dL 7 - 25 mg/dL [facility] Urea nitrogen/Creatinine [Mass ratio] 15 mg/mg [facility] DEVICE EVALUATION (SCANNED)o n 01-07-2024 [facility] Radiology Study observation (narrative) [facility] EXTRA LAVENDER TOPon 024 [facility] MAGNESIUMon 01-07-2024 Magnesium [Mass/Vol] 2.1 mg/dL Normal 1.6-2.6 [facility] Comment on above: Performed By: #### CHANTELL DYSON6 #### [facility] (DEFAULT) [address] [place] [address] Interpretation and review of laboratory results Normal [facility] Magnesium [Mass/Vol] 2.1 mg/dL 1.6 - 2 .6 mg/dL [facility] No Panel Informationon 01-07 [facility] CBC AND ELECTRONIC DIFFon Basophils (Bld) [#/Vol] 0.07 10*3/uL Normal 0.00-0.09 [facility] Comment on above: Performed By: #### L AB980 #### [facility] (DEFAULT) [address] [place] [address] 52055 Basophils/100 WBC (Bld) 0.8 % Normal [facility] Comment on above: Performed By: #### L AB980 #### [facility] (DEFAULT) [address] [place] [address] 72741 DIFF STATUS Electronic Differential Normal [facility] Comment on above: Performed By: #### L AB980 #### [facility] (DEFAULT) [address] [place] [address] 87745 Eosinophils (Bld) [#/Vol] 0.32 10*3/uL Normal 0.00-0.48 [facility] Comment on above: Performed By: #### L AB980 #### [facility] (DEFAULT) [address] [place] [address] 00005 Eosinophils/100 WBC (Bld) 3.7 % Normal [facility] Comment on above: Performed By: #### L AB980 #### [facility] (DEFAULT) [address] [place] [address] 92172 Hematocrit (Bld) [Volume fraction] 41.5 % Normal 39.6-48.8 [facility] Comment on above: Performed By: #### L AB980 #### [facility] (DEFAULT) [address] [place] [address] 22175 Hemoglobin (Bld) [Mass/Vol] 13.8 g/dL Normal 13.4-16.8 [facility] Comment on above: Performed By: #### L AB980 #### U [facility] (DEFAULT) [address] [place] [address] 21688 Immature Grans % 0.6 % Normal [facility] Comment on above: Performed By: #### L AB980 #### U [facility] (DEFAULT) [address] [place] [address] 68655 Immature Grans Absolute 0.05 K/uL Normal <=0.07 [facility] Comment on above: Performed By: #### L AB980 #### [facility] (DEFAULT) [address] [place] [address] 60428 Lymphocytes (Bld) [#/Vol] 2.14 10*3/uL Normal 0.83-3.57 [facility] Comment on above: Performed By: #### L AB980 #### [facility] (DEFAULT) [address] [address] Lymphocytes/100 WBC (Bld) 24.7 % Normal [facility] Comment on above: Performed By: #### L AB980 #### [facility] (DEFAULT) [address] [place] [address] 44955 MCV (RBC) [Entitic vol] 89.2 fL Normal 79.0-94.5 [facility] Comment on above: Performed By: #### L AB980 #### [facility] (DEFAULT) [address] [place] [address] 22474 Mean Cell Hgb 29.7 pg Normal 26.1-33.3 [facility] Comment on above: Performed By: #### L AB980 #### [facility] (DEFAULT) [address] [address] Mean Cell Hgb Conc 33.3 g/dL Normal 31.9-36.5 [facility] Comment on above: Performed By: #### L AB980 #### [facility] (DEFAULT) [address] [place] [address] 15671 Monocytes (Bld) [#/Vol] 0.64 10*3/uL Normal 0.24-0.93 [facility] Comment on above: Performed By: #### L AB980 #### [facility] (DEFAULT) [address] [address] Monocytes/100 WBC (Bld) 7.4 % Normal [facility] Comment on above: Performed By: #### L AB980 #### [facility] (DEFAULT) [address] [place] [address] 59776 Nucleated RBC 0.0 /100 WBC Normal <=0.2 [facility] Comment on above: Performed By: #### L AB980 #### [facility] (DEFAULT) [address] [address] Platelet mean volume (Bld) [Entitic vol] 9.3 fL Normal 8.7-12.3 [facility] Comment on above: Performed By: #### L AB980 #### [facility] (DEFAULT) [address] [place] [address] 60191 Platelets (Bld) [#/Vol] 220 10*3/uL Normal 146-337 [facility] Comment on above: Performed By: #### L AB980 #### [facility] (DEFAULT) [address] [address] RBC (Bld) [#/Vol] 4.65 10*6/uL Normal 4.38-5.83 [facility] Comment on above: Performed By: #### L AB980 #### [facility] (DEFAULT) [address] [place] [address] 55771 RBC Distribution 13.0 % Normal 10.9-14.3 [facility] Comment on above: Performed By: #### L AB980 #### [facility] (DEFAULT) [address] [address] Segs + Bands Auto 62.8 % Normal [facility] Comment on above: Performed By: #### L AB980 #### [facility] (DEFAULT) [address] [place] [address] Segs + Bands,Absolute Auto 5.44 K/uL Normal 1.57-6.19 [facility] Comment on above: Performed By: #### L AB980 #### [facility] (DEFAULT) [address] [place] [address] WBC (Bld) [#/Vol] 8.66 10*3/uL Normal 3.73-10.10 [facility] Comment on above: Performed By: #### L AB980 #### [facility] (DEFAULT) [address] [place] [address] Basophils (Bld) [#/Vol] 0.07 10*3/uL 0.00 - 0.09 K/uL [facility] Basophils/100 WBC (Bld) 0.8 % [facility] Differential cell count method Nom (Bld) Electronic Differential [facility] Eosinophils (Bld) [#/Vol] 0.32 10*3/uL 0.00 - 0.48 K/uL [facility] Eosinophils/100 WBC (Bld) 3.7 % [facility] Erythrocyte distribution width (RBC) [Ratio] 13.0 % 10.9 - 14.3 % [facility] Hematocrit (Bld) [Volume fraction] 41.5 % 39.6 - 48.8 % [facility] Hemoglobin (Bld) [Mass/Vol] 13.8 g/dL 13.4 - 16.8 g/dL [facility] Immature granulocytes (Bld) [#/Vol] 0.05 10*3/uL NINF - 0.07 K/uL [facility] Immature granulocytes/100 WBC (Bld) 0.6 % [facility] Lymphocytes (Bld) [#/Vol] 2.14 10*3/uL 0.83 - 3.57 K/uL [facility] Lymphocytes/100 WBC (Bld) 24.7 % [facility] MCH (RBC) [Entitic mass] 29.7 pg 26.1 - 33.3 pg [facility] MCHC (RBC) [Mass/Vol] 33.3 g/dL 31.9 - 36.5 g/dL [facility] MCV (RBC) [Entitic vol] 89.2 fL 79.0 - 94.5 fL [facility] Monocytes (Bld) [#/Vol] 0.64 10*3/uL 0.24 - 0.93 K/uL [facility] Monocytes/100 WBC (Bld) 7.4 % [facility] Neutrophils (Bld) [#/Vol] 5.44 10*3/uL 1.57 - 6.19 K/uL [facility] Nucleated RBC/100 WBC (Bld) [Ratio] 0.0 % [facility] Platelet mean volume (Bld) [Entitic vol] 9.3 fL 8.7 - 12.3 fL [facility] Platelets (Bld) [#/Vol] 220 10*3/uL 146 - 337 K/uL [facility] RBC (Bld) [#/Vol] 4.65 10*6/uL [facility] Segmented neutrophils/100 WBC (Bld) 62.8 % [facility] WBC (Bld) [#/Vol] 8.66 10*3/uL 3.73 - 10. 10 K/uL [facility] CHEM 7 (LYTES,BUN,CREA,GLUC) on 01-06-2024 Anion gap [Moles/Vol] 14 mmol/L Normal 7-17 [facility] Comment on above: Performed By: #### C HM7 #### [facility] (DEFAULT) [address] [place] [address] 46857 Chloride [Moles/Vol] 105 mmol/L Normal 98-108 [facility] Comment on above: Performed By: #### C HM7 #### [facility] (DEFAULT) [address] [place] [address] CO2 [Moles/Vol] 24 mmol/L Normal 21-31 [facility] Comment on above: Performed By: #### C HM7 #### [facility] (DEFAULT) [address] [place] [address] 53642 Creatinine [Mass/Vol] 1.23 mg/dL Normal 0.70-1.30 [facility] Comment on above: Performed By: #### C HM7 #### U [facility] (DEFAULT) [address] [place] [address] 38903 GFR/1.73 sq M.predicted among non-blacks MDRD (S/P/Bld) [Vol rate/Area] 64 mL/min/{1.73_m2} Normal >=60 [facility] Comment on above: Result Comment: Repo rted eGFR is based on the CKD-EPI 2020 equation using creatinine, age, and sex. Performed By: #### C HM7 #### [facility] (DEFAULT) [address] [place] [address] 80729 Glucose [Mass/Vol] 128 mg/dL High 70-99 [facility] Comment on above: Performed By: #### C HM7 #### [facility] (DEFAULT) [address] [place] [address] 90759 Osmolality [Osmolality] 296 mosm/kg Normal 278-305 [facility] Comment on above: Performed By: #### C HM7 #### [facility] (DEFAULT) [address] [place] [address] 90723 Potassium [Moles/Vol] 4.2 mmol/L Normal 3.5-5.0 [facility] Comment on above: Performed By: #### C HM7 #### [facility] (DEFAULT) [address] [place] [address] 46065 Sodium [Moles/Vol] 139 mmol/L Normal 135-145 [facility] Comment on above: Performed By: #### C HM7 #### [facility] (DEFAULT) [address] [place] [address] 58868 Urea nitrogen [Mass/Vol] 20 mg/dL Normal 7-25 [facility] Comment on above: Performed By: #### C HM7 #### [facility] (DEFAULT) [address] [place] [address] Urea nitrogen/Creatinine [Mass ratio] 16 mg/mg Normal [facility] Comment on above: Performed By: #### C HM7 #### [facility] (DEFAULT) [address] [place] [address] Anion gap [Moles/Vol] 14 mmol/L 7 - 17 mmol/L [facility] Chloride [Moles/Vol] 105 mmol/L 98 - 10 8 mmol/L [facility] CO2 [Moles/Vol] 24 mmol/L 21 - 31 mmol/L [facility] Creatinine [Mass/Vol] 1.23 mg/dL 0.70 - 1.30 mg/dL [facility] eGFR, CKD-EPI, Male 64 - PINF [facility] Comment on above: Reported eGFR is bas ed on the CKD-EPI 2020 equation using creatinine, age, and sex. Glucose [Mass/Vol] 128 mg/dL High 70 - 99 mg/dL [facility] Interpretation and review of laboratory results Abnormal [facility] Osmolality Calc [Osmolality] 296 [facility] Potassium [Moles/Vol] 4.2 mmol/L 3.5 - 5.0 mmol/L [facility] Sodium [Moles/Vol] 139 mmol/L 135 - 145 mmol/L [facility] Urea nitrogen [Mass/Vol] 20 mg/dL 7 - 25 mg/dL [facility] Urea nitrogen/Creatinine [Mass ratio] 16 mg/mg [facility] PT,INR,PTTon 01-06-2024 aPTT Coag (Bld) [Time] 26.8 s Normal 24.0-34.3 [facility] Comment on above: Performed By: #### P TPTT #### [facility] (DEFAULT) [address] [place] [address] INR Coag (PPP) [Relative time] 1.0 {INR} Normal 0.9-1.1 [facility] Comment on above: Performed By: #### P TPTT #### [facility] (DEFAULT) [address] [place] [address] 87535 PT Coag (PPP) [Time] 12.6 s Normal 11.9-14.2 [facility] Comment on above: Performed By: #### P TPTT #### [facility] (DEFAULT) [address] [place] [address] 30973 aPTT Coag (PPP) [Time] 26.8 s [facility] INR Coag (Bld) [Relative time] 1.0 {INR} 0.9 - 1.1 [facility] Interpretation and review of laboratory results Normal [facility] PT Coag (PPP) [Time] 12.6 s [facility] XR CHEST PA AND LATERAL 2 EWSon [...] Please page the on-call EP fellow at [phone] with any emergent finding such as pneumothorax.; [...] evaluation. No acute pulmonary finding. Cardiomegaly. Normal [facility] XR Chest PA and Lateralon EXAM: [...] Limited evaluation. No acute pulmonary finding. Cardiomegaly. [facility] Radiology Study observation (narrative) [facility] XR Chest PA and LateralOrder ed By: Renetta Burgos on 01-06-2024 [facility] Work Phone: Basophil percentageOrdered B y: Speedy Boswell on 11-28-2023 Chloride [Moles/Vol] 109 mmol/L 98-107 [facility] Cholesterol [Mass/Vol] 96 mg/dL <200 [facility] Comment on above: <200 mg/dL Desirable 200-240 mg/dL Borderline >240 mg/dL High Risk Glucose [Mass/Vol] 125 mg/dL 74-106 [facility] Comment on above: Fasting Glucose resu lt from 100 to 125 mg/dL suggests IMPAIRED HOMEOSTASIS per A.D.A. criteria. Potassium [Moles/Vol] 4.1 mmol/L 3.5-5.1 [facility] Sodium [Moles/Vol] 141 mmol/L 136-145 [facility] Triglyceride [Mass/Vol] 91 mg/dL <199 [facility] Comment on above: The drugs N-Acetylcy steine and Metamizole may falsely depress this assay.Serum Triglycerides Reference Interval Normal <150 mg/dL Borderline high 150 - 199 mg/dL High 200 - 499 mg/dL Very High > or = 500 mg/dL Laboratory - Chemistry and C hemistry - challengeOrdered By: Speedy Boswell on 11-28-2023 CO2 [Moles/Vol] 26.0 mmol/L 21.0-32.0 [facility] Urea nitrogen/Creatinine [Mass ratio] 11.7 mg/mg 10-20 [facility] No Panel InformationOrdered By: Speedy Boswell on 11-28-2023 Estimated GFR (MDRD) Amer 72 mL/min >60 [facility] Comment on above: GFR Calc Estimated GFR (MDRD) Non-Af Amer 59 mL/min >60 [facility] Comment on above: Non- GFR Calc Serum or plasma calcium raul urement (mass/volume)Ordered By: Speedy Boswell on 11-28-2023 Calcium [Mass/Vol] 8.9 mg/dL 8.5-10.1 [facility] Serum or plasma cholesterol in HDL measurement (mass/volume)Ordered By: Speedy Boswell on 11-28-2023 Cholesterol in HDL [Mass/Vol] 32 mg/dL >40 [facility] Comment on above: The drugs N-Acetylcy steine and Metamizole may falsely depress this assay. Reference Range HDL <40 mg/dL Low HDL Cholesterol HDL >or= 60 mg/dL High HDL Cholesterol Serum or plasma cholesterol in VLDL measurement (mass/volume)Ordered By: Speedy Boswell on 11-28-2023 Cholesterol in VLDL [Mass/Vol] 18 mg/dL 5-40 [facility] Serum or plasma creatinine m easurement (mass/volume)Ordered By: Speedy Boswell on 11-28-2023 Creatinine [Mass/Vol] 1.28 mg/dL 0.70-1.30 [facility] Comment on above: The validity of the calculated GFR & GFRAA in patients over 70 years has not been determined. Clinical correlation is essential. Serum or plasma low density lipoprotein (LDL) cholesterol measurement (mass/volume)Ordered By: Speedy Boswell on 11-28-2023 Cholesterol in LDL [Mass/Vol] 46 mg/dL 0-130 [facility] Serum or plasma urea nitroge n measurement (mass/volume)Ordered By: Speedy Boswell on 11-28-2023 Urea nitrogen [Mass/Vol] 15 mg/dL 7-18 [facility] Thin prep Papanicolaou smear with manual screeningOrdered By: Speedy Boswell on 11-28-2023 Thin prep Papanicolaou smear with manual screening 6 5-15 [facility] EP PROCEDURE - EPS/ABLATION/ DEVICEon 11-22-2023 EP PROCEDURE - EPS/ABLATION/DEVICE Left arm venogram demonstrated the L axillary, brachiocephalic, inominate all patent to the SVC. Recommendations: Atrial lead replacement as planned. Table formatting from the original result was not included. Albin Jm Issa EP Procedure - EPS/Ablation/Device Ordering Physician: DAVID RAMIREZ Order #: [id number] Study Date: 11/21/2023 Patient Information Name MRN Description Albin Issa [id number] 68 y.o. male Physicians Panel Physicians Referring [...] no ABN associated with this order. Normal [facility] CHEM 7 (LYTES,BUN,CREA,GLUC) on 11-21-2023 Anion gap [Moles/Vol] 16 mmol/L Normal 7-17 [facility] Comment on above: Performed By: #### C HM7 #### [facility] (DEFAULT) [address] [place] [address] 70134 Chloride [Moles/Vol] 106 mmol/L Normal 98-108 [facility] Comment on above: Performed By: #### C HM7 #### [facility] (DEFAULT) [address] [place] [address] 50140 CO2 [Moles/Vol] 20 mmol/L Low 21-31 [facility] Comment on above: Performed By: #### C HM7 #### [facility] (DEFAULT) [address] [place] [address] 26317 Creatinine [Mass/Vol] 1.39 mg/dL High 0.70-1.30 [facility] Comment on above: Performed By: #### C HM7 #### [facility] (DEFAULT) [address] [place] [address] 56942 GFR/1.73 sq M.predicted among non-blacks MDRD (S/P/Bld) [Vol rate/Area] 55 mL/min/{1.73_m2} Low >=60 [facility] Comment on above: Result Comment: Repo rted eGFR is based on the CKD-EPI 2020 equation using creatinine, age, and sex. Performed By: #### C HM7 #### [facility] (DEFAULT) [address] [place] [address] 59181 Glucose [Mass/Vol] 103 mg/dL High 70-99 [facility] Comment on above: Performed By: #### C HM7 #### [facility] (DEFAULT) [address] [place] [address] 16587 Osmolality [Osmolality] 292 mosm/kg Normal 278-305 [facility] Comment on above: Performed By: #### C HM7 #### [facility] (DEFAULT) [address] [place] [address] 53761 Potassium [Moles/Vol] 3.9 mmol/L Normal 3.5-5.0 [facility] Comment on above: Performed By: #### C HM7 #### [facility] (DEFAULT) [address] [place] [address] 63944 Sodium [Moles/Vol] 138 mmol/L Normal 135-145 [facility] Comment on above: Performed By: #### C HM7 #### [facility] (DEFAULT) [address] [address] Urea nitrogen [Mass/Vol] 22 mg/dL Normal 7-25 [facility] Comment on above: Performed By: #### C HM7 #### U [facility] (DEFAULT) [address] [place] [address] Urea nitrogen/Creatinine [Mass ratio] 16 mg/mg Normal [facility] Comment on above: Performed By: #### C HM7 #### [facility] (DEFAULT) [address] [place] [address] DEVICE EVALUATION (SCANNED)o n 11-21-2023 [facility] Radiology Study observation (narrative) [facility] Office Visiton 08-26-2023 Follow-up visit [id number] Albin Issa 1955 M Date Provider Department Center 08/26/2023 KEL REESE [facility] None Family History Problem Relation Age of Onset Heart attack Mother Cancer Father Comments: liver Family Status - Relation Status Age at Mother Father Daughter Alive Level of Service:62412 [place] OFFICE/OUTPT VISIT,PROCEDURE ONLY Reason for Visit and Comments: Follow-up [585808] - USG left subtalar joint injection Normal [facility] PATINSon 08-26-2023 [facility] Orthopaedics and Sports Medicine Patient Care [...] the office as soon as possible at [phone] [facility] Progress Noteon 08-26-2023 Progress Note [facility] ORTHOPEDICS AND SPORTS MEDICINE [address] [place] [address] Dept: [phone] Dept Chief Complaint Patient presents with Follow-up [...] to signing but 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 Normal [facility] 36on 08-12-2023 36 Patient was called with a VM left to call our office back to schedule injection. Scheduling Information: Saturday or in [place] Saturday afternoon only 1st available- 30 min appt [facility] 36 Name of Caller: Mauro Contact Reason for Appointment: Pt would like to get another USG left subtalar joint If he does not answer please leave a voicemail. Please advise. Office Name: [facility] Absolute lymphocyte countOrd ered By: ED PROVIDER on 10-27-2022 Lymphocytes Auto (Unsp spec) [#/Vol] 0.99 10*3/uL 0.83-4.51 [facility] Basophil percentageOrdered B y: ED PROVIDER on 10-27-2022 Basophils/100 WBC (Bld) 0.5 % 0-1 [facility] Chloride [Moles/Vol] 106 mmol/L 98-107 [facility] Eosinophils/100 WBC (Bld) 3.5 % 0-5 [facility] Glucose [Mass/Vol] 103 mg/dL 74-106 [facility] Comment on above: Fasting Glucose resu lt from 100 to 125 mg/dL suggests IMPAIRED HOMEOSTASIS per A.D.A. criteria. Neutrophils (Bld) [#/Vol] 3.7 10*3/uL 2.0-7.7 [facility] Neutrophils/100 WBC (Bld) 65.1 % 47-70 [facility] Potassium [Moles/Vol] 4.0 mmol/L 3.5-5.1 [facility] Comment on above: Slight Hemolysis, Re sult may be falsely increased. Sodium [Moles/Vol] 138 mmol/L 136-145 [facility] WBC (Bld) [#/Vol] 5.7 10*3/uL 4.4-11.0 [facility] Blood erythrocytes count (nu mber/volume)Ordered By: ED PROVIDER on 10-27-2022 RBC (Bld) [#/Vol] 4.65 10*6/uL 4.6-6.2 [facility] Blood hemoglobin measurement (mass/volume)Ordered By: ED PROVIDER on 10-27-2022 Hemoglobin (Bld) [Mass/Vol] 14.7 g/dL 13.0-16.5 [facility] Blood lymphocytes/100 leukoc ytesOrdered By: ED PROVIDER on 10-27-2022 Lymphocytes/100 WBC (Bld) 17.4 % 19-41 [facility] Blood monocytes/100 leukocyt esOrdered By: ED PROVIDER on 10-27-2022 Monocytes/100 WBC (Bld) 13.0 % 0-10 [facility] Blood platelet mean volumeOr dered By: ED PROVIDER on 10-27-2022 Platelet mean volume (Bld) [Entitic vol] 9.8 fL 6.2-12.0 [facility] COVID-19 virus antigen assay Ordered By: ED PROVIDER on 10-27-2022 SARS-CoV-2 (COVID-19) Ag IA.rapid Ql (Resp) [facility] Determination of erythrocyte mean corpuscular volume (MCV)Ordered By: ED PROVIDER on 10-27-2022 MCV (RBC) [Entitic vol] 91.6 fL 80-94 [facility] Hematocrit Auto (Bld) [Volum e fraction]Ordered By: ED PROVIDER on 10-27-2022 Hematocrit (Bld) [Volume fraction] 42.6 % 40-54 [facility] Laboratory - Chemistry and C hemistry - challengeOrdered By: ED PROVIDER on 10-27-2022 CO2 [Moles/Vol] 27.0 mmol/L 21.0-32.0 [facility] Urea nitrogen/Creatinine [Mass ratio] 11.9 mg/mg 10-20 [facility] Laboratory - Hematology and Cell countsOrdered By: ED PROVIDER on 10-27-2022 Erythrocyte distribution width (RBC) [Entitic vol] 45.2 fL 35.1-43.9 [facility] Erythrocyte distribution width (RBC) [Ratio] 13.4 % 11.6-14.6 [facility] Immature granulocytes/100 WBC (Bld) 0.500 % 0.0-0.9 [facility] Comment on above: IG% - Immature Granu locytes (promyelocytes, myelocytes and metamyelocytes) > 1% indicates that a LEFT SHIFT is Present. MCH (RBC) [Entitic mass] 31.6 pg 27.0-32.0 [facility] Nucleated RBC/100 WBC (Bld) [Ratio] 0 % 0-5 [facility] ([facility]) [Mass/Vol]Or dered By: ED PROVIDER on 10-27-2022 MCHC (RBC) [Mass/Vol] 34.5 g/dL 32-36 [facility] No Panel InformationOrdered By: ED PROVIDER on 10-27-2022 Estimated Creatinine Clearance Calc 51.75 ml/min [facility] Estimated GFR (MDRD) Amer 68 mL/min >60 [facility] Comment on above: GFR Calc Estimated GFR (MDRD) Non-Af Amer 56 mL/min >60 [facility] Comment on above: Non- GFR Calc Platelets bldOrdered By: ED PROVIDER on 10-27-2022 Platelets (Bld) [#/Vol] 159 10*3/uL 150-450 [facility] Serum or plasma calcium raul urement (mass/volume)Ordered By: ED PROVIDER on 10-27-2022 Calcium [Mass/Vol] 9.8 mg/dL 8.5-10.1 [facility] Serum or plasma creatinine m easurement (mass/volume)Ordered By: ED PROVIDER on 10-27-2022 Creatinine [Mass/Vol] 1.34 mg/dL 0.70-1.30 [facility] Comment on above: The validity of the calculated GFR & GFRAA in patients over 70 years has not been determined. Clinical correlation is essential. Serum or plasma urea nitroge n measurement (mass/volume)Ordered By: ED PROVIDER on 10-27-2022 Urea nitrogen [Mass/Vol] 16 mg/dL 7-18 [facility] Thin prep Papanicolaou smear with manual screeningOrdered By: ED PROVIDER on 10-27-2022 Thin prep Papanicolaou smear with manual screening 5 5-15 [facility] No Panel Informationon 06-20 Prostate Specific Antigen Screen 0.41 ng/mL 0.00-4.00 [facility] Work Phone: Comment on above: This test was perfor med using the TPSA assay method for the[employer] chemistry system. Values obtained with differentassay methods cannot be used interchangably.When changing PSA assays in the course of monitoring apatient, additional sequential testing should be carriedout to confirm baseline values. Basophil percentageon 2021 Bilirubin [Mass/Vol] 0.40 mg/dL 0.20-1.00 [facility] Work Phone: Comment on above: For patients on eltr ombopag therapy, use of Dimension Brunson TBIL is not recommended. Cholesterol [Mass/Vol] 115 mg/dL <200 [facility] Work Phone: Comment on above: <200 mg/dL Desirable 200-240 mg/dL Borderline >240 mg/dL High Risk Protein [Mass/Vol] 7.7 g/dL 6.4-8.2 [facility] Work Phone: [phone] Triglyceride [Mass/Vol] 117 mg/dL <199 [facility] Work Phone: Comment on above: The drugs N-Acetylcy steine and Metamizole may falsely depress this assay.Serum Triglycerides Reference Interval Normal <150 mg/dL Borderline high 150 - 199 mg/dL High 200 - 499 mg/dL Very High > or = 500 mg/dL Direct bilirubinon Bilirubin.direct [Mass/Vol] 0.13 mg/dL 0.00-0.30 [facility] Work Phone: [phone] Laboratory - Chemistry and C hemistry - challengeon 05-10-2022 ALP [Catalytic activity/Vol] 138 U/L 45-117 [facility] Work Phone: [phone] ALT [Catalytic activity/Vol] 37 U/L 16-61 [facility] Work Phone: [phone] Globulin (S) [Mass/Vol] 3.8 g/dL 2.2-4.2 [facility] Work Phone: [phone] Serum or plasma albumin raul urement (mass/volume)on 05-10-2022 Albumin [Mass/Vol] 3.9 g/dL 3.2-5.0 [facility] Work Phone: [phone] Serum or plasma cholesterol in HDL measurement (mass/volume)on 05-10-2022 Cholesterol in HDL [Mass/Vol] 30 mg/dL >40 [facility] Work Phone: Comment on above: The drugs N-Acetylcy steine and Metamizole may falsely depress this assay. Reference Range HDL <40 mg/dL Low HDL Cholesterol HDL >or= 60 mg/dL High HDL Cholesterol Serum or plasma cholesterol in VLDL measurement (mass/volume)on 05-10-2022 Cholesterol in VLDL [Mass/Vol] 23 mg/dL 5-40 [facility] Work Phone: Serum or plasma low density lipoprotein (LDL) cholesterol measurement (mass/volume)on 05-10-2022 Cholesterol in LDL [Mass/Vol] 62 mg/dL 0-130 [facility] Work Phone: Thin prep Papanicolaou smear with manual screeningon 05-10-2022 Thin prep Papanicolaou smear with manual screening 20 U/L 15-37 [facility] Work Phone: [id number] 03-07-2022 Vitamin B6 Lvl 14.0 nmol/L Low 20.0-125.0 [facility] ([place]) Comment on above: Result Comment: INTE RPRETIVE INFORMATION: Vitamin B6 (Pyridoxal 5-Phosphate) Pyridoxal 5'-phosphate measured in a specimen collected following an 8-hour or overnight fast accurately indicates vitamin B6 nutritional status. Non-fasting specimen concentration reflects recent vitamin intake. This test was developed and its performance characteristics determined by [facility]. It has not been cleared or approved by the [place] Food and Drug Administration. This test was performed in a CLIA certified laboratory and is intended for clinical purposes. Performed By: [facility] [address] [place] [address] Transition Mgr Rn: Leyda Carr MD Performed By: #### A 1C, TSH, FT4, ENA1, COPPER, MMA, VITB6 #### [facility] [address] [place] [address] #### FOL, B12, IFES, SPE #### [address] [address] IFESon 03-05-2022 IFES Interpretation Immunofixation electrophoresis of serum shows the presence of only polyclonal immunoglobulins (IgG,A,M,[place] and Lambda), No monoclonal protein detected. Normal [facility] ([place]) Comment on above: Result Comment: Elec tronically Signed by: PANKAJ QUIROZ 03/05/2022 08:24 EDT Performed By: #### A 1C, TSH, FT4, ENA1, COPPER, MMA, VITB6 #### [address] [address] #### FOL, B12, IFES, SPE #### [address] 03-05-2022 SPE Interpretation Normal serum protein electrophoresis pattern. No abnormality detected. Normal [facility] ([place]) Comment on above: Result Comment: Elec tronically Signed by: PANKAJ QUIROZ 03/05/2022 08:24 EDT Performed By: #### A 1C, TSH, FT4, ENA1, COPPER, MMA, VITB6 #### [address] [address] #### FOL, B12, IFES, SPE #### [place] [id number] [facility] 03-01-2022 Methylmalonic Acid 172 nmol/L Normal 79-376 [facility] ([place]) Comment on above: Result Comment: This test was developed and its performance characteristics determined by [facility] Pathology and Laboratory Medicine [place] ([facility]). It has not been cleared or approved by the FDA. [facility] is regulated under CLIA as qualified to perform high-complexity testing. This test is used for clinical purposes. It should not be regarded as investigational or for research. Performed By: [facility] [address] [place] [address] Wrapper Stitcher: Hung Arevalo III, M.D. CLIA#: [id number] Performed By: #### A 1C, TSH, FT4, ENA1, COPPER, MMA, VITB6 #### [address] [address] #### FOL, B12, IFES, SPE #### [address] 03-01-2022 Albumin 3.7 G/dL Normal 3.3-5.0 [facility] ([place]) Comment on above: Performed By: #### A 1C, TSH, FT4, ENA1, COPPER, MMA, VITB6 #### [address] [address] #### FOL, B12, IFES, SPE #### [place] [address] Alpha 1 0.2 G/dL Normal 0.1-0.4 [facility] ([place]) Comment on above: Performed By: #### A 1C, TSH, FT4, ENA1, COPPER, MMA, VITB6 #### [place] [address] #### FOL, B12, IFES, SPE #### [place] [address] Alpha 2 0.9 G/dL Normal 0.6-1.2 [facility] ([place]) Comment on above: Performed By: #### A 1C, TSH, FT4, ENA1, COPPER, MMA, VITB6 #### [place] [address] #### FOL, B12, IFES, SPE #### [place] [address] Beta 1.0 G/dL Normal 0.6-1.3 [facility] ([place]) Comment on above: Performed By: #### A 1C, TSH, FT4, ENA1, COPPER, MMA, VITB6 #### [place] [address] #### FOL, B12, IFES, SPE #### [place] [address] Gamma 1.1 G/dL Normal 0.7-1.6 [facility] ([place]) Comment on above: Performed By: #### A 1C, TSH, FT4, ENA1, COPPER, MMA, VITB6 #### [place] [address] #### FOL, B12, IFES, SPE #### [place] [address] CUSon 02-28-2022 Copper (s) 107 UG/DL Normal 70-140 [facility] ([place]) Comment on above: Result Comment: This test was developed and its performance characteristics determined by [facility] Pathology and Laboratory Medicine [place] ([facility]). It has not been cleared or approved by the FDA. [facility] is regulated under CLIA as qualified to perform high-complexity testing. This test is used for clinical purposes. It should not be regarded as investigational or for research. Performed By: [place] [address] Wrapper Stitcher: Hung Arevalo III, M.D. CLIA#: [id number] Performed By: #### A 1C, TSH, FT4, ENA1, COPPER, MMA, VITB6 #### [place] [address] #### FOL, B12, IFES, SPE #### [place] [address] ENA1on 02-28-2022 Centromere <0.2 Normal <1.0 [facility] ([place]) Comment on above: Result Comment: Anti -centromere antibody is used as in aid in diagnosis of systemic sclerosis. Clinical correlation is required. Test Methodology: Multiplex flow immunoassay. Performed By: [place] [address] Wrapper Stitcher: Hung Arevalo III, M.D. CLIA#: [id number] Performed By: #### A 1C, TSH, FT4, ENA1, COPPER, MMA, VITB6 #### [place] [address] #### FOL, B12, IFES, SPE #### [place] [address] Centromere Ab Qualitative Negative Normal Negative [facility] ([place]) Comment on above: Result Comment: Perf ormed By: [place] [address] Wrapper Stitcher: Hung Arevalo III, M.D. CLIA#: [id number] Performed By: #### A 1C, TSH, FT4, ENA1, COPPER, MMA, VITB6 #### [place] [address] #### FOL, B12, IFES, SPE #### [address] [address] Chromatin Ab Qualitative Negative Normal Negative [facility] ([place]) Comment on above: Result Comment: Perf ormed By: [place] [address] Wrapper Stitcher: Hung Arevalo III, M.D. CLIA#: [id number] Performed By: #### A 1C, TSH, FT4, ENA1, COPPER, MMA, VITB6 #### [place] [address] #### FOL, B12, IFES, SPE #### [address] [address] Chromatin Antibody <0.2 Normal <1.0 [facility] ([place]) Comment on above: Result Comment: Test Methodology: Multiplex flow immunoassay. Anti-chromatin antibody is used as an aid in diagnosis of systemic lupus erythematosus. Clinical correlation is required. Test Methodology: Multiplex flow immunoassay. Performed By: [place] [address] Wrapper Stitcher: Hung Arevalo III, M.D. CLIA#: [id number] Performed By: #### A 1C, TSH, FT4, ENA1, COPPER, MMA, VITB6 #### [place] [address] #### FOL, B12, IFES, SPE #### [address] [address] HAILE 1 Antibody <0.2 Normal <1.0 [facility] ([place]) Comment on above: Result Comment: Perf ormed By: [place] [address] Wrapper Stitcher: Hung Arevalo III, M.D. CLIA#: [id number] Performed By: #### A 1C, TSH, FT4, ENA1, COPPER, MMA, VITB6 #### [place] [id number] #### FOL, B12, IFES, SPE #### [address] [address] HAILE 1 Antibody Qual Negative Normal Negative [facility] ([place]) Comment on above: Result Comment: Anti -HAILE-1 antibody is used as an aid in diagnosis of polymyositis and dermatomyositis especially with pulmonary involvement. A negative result cannot rule out polymyositis or dermatomyositis. Clinical correlation is required. Test Methodology: Multiplex flow immunoassay. Performed By: [facility] [address] [place] [address] Wrapper Stitcher: Hung Arevalo III, M.D. CLIA#: [id number] Performed By: #### A 1C, TSH, FT4, ENA1, COPPER, MMA, VITB6 #### [place] [address] #### FOL, B12, IFES, SPE #### [address] [address] Ribosomal LAWN CARE TECHNICIAN <0.2 Normal <1.0 [facility] ([place]) Comment on above: Result Comment: Perf ormed By: [facility] [address] [place] [address] Wrapper Stitcher: Hung Arevalo III, M.D. CLIA#: [id number] Performed By: #### A 1C, TSH, FT4, ENA1, COPPER, MMA, VITB6 #### [place] [address] #### FOL, B12, IFES, SPE #### [address] [address] Ribosomal LAWN CARE TECHNICIAN Qualitative Negative Normal Negative [facility] ([place]) Comment on above: Result Comment: Anti -Ribosomal RNA (Ribosomal P) antibody is used as an aid in diagnosis of systemic autoimmune diseases especially systemic lupus erythematosus and mixed connective tissue disease. Cross-reactivity with Anti-gonzales antibody is not uncommon. Clinical correlation is required. Test Methodology: Multiplex flow immunoassay. Performed By: [facility] [address] [place] [address] Wrapper Stitcher: Hung Arevalo III, M.D. CLIA#: [id number] Performed By: #### A 1C, TSH, FT4, ENA1, COPPER, MMA, VITB6 #### [address] [address] #### FOL, B12, IFES, SPE #### [address] [address] LAWN CARE TECHNICIAN Antibody 0.3 AI Normal <1.0 [facility] ([place]) Comment on above: Result Comment: Anti -LAWN CARE TECHNICIAN antibody is used as an aid in diagnosis of systemic autoimmune diseases especially systemic lupus erythematosus and mixed connective tissue disease. Cross-reactivity with Anti-gonzales antibody is not uncommon. Clinical correlation is required. Test Methodology: Multiplex flow immunoassay. Performed By: [place] [address] Wrapper Stitcher: Hung Arevalo III, M.D. CLIA#: [id number] Performed By: #### A 1C, TSH, FT4, ENA1, COPPER, MMA, VITB6 #### [place] [address] #### FOL, B12, IFES, SPE #### [address] [address] LAWN CARE TECHNICIAN Antibody Qualitative Negative Normal Negative [facility] ([place]) Comment on above: Result Comment: Perf ormed By: [place] [address] Wrapper Stitcher: Hung Arevalo III, M.D. CLIA#: [id number] Performed By: #### A 1C, TSH, FT4, ENA1, COPPER, MMA, VITB6 #### [place] [address] #### FOL, B12, IFES, SPE #### [address] [address] Scleroderma Ab, IgG Qualitative Negative Normal Negative [facility] ([place]) Comment on above: Result Comment: Perf ormed By: [place] [address] Wrapper Stitcher: Hung Arevalo III, M.D. CLIA#: [id number] Performed By: #### A 1C, TSH, FT4, ENA1, COPPER, MMA, VITB6 #### [address] [address] #### FOL, B12, IFES, SPE #### [address] [address] Scleroderma IgG Ab <0.2 Normal <1.0 [facility] ([place]) Comment on above: Result Comment: Scl- 70/Scleroderma antibody test is used as an aid in diagnosis of systemic sclerosis especially the diffuse cutaneous form. A negative result cannot rule out systemic sclerosis. The final interpretation should consider clinical picture and other test results such as anti-centromere antibody. Test Methodology: Multiplex flow immunoassay. Performed By: [place] [address] Wrapper Stitcher: Hung Arevalo III, M.D. CLIA#: [id number] Performed By: #### A 1C, TSH, FT4, ENA1, COPPER, MMA, VITB6 #### [place] [address] #### FOL, B12, IFES, SPE #### [address] [address] Sm Antibody <0.2 Normal <1.0 [facility] ([place]) Comment on above: Result Comment: Perf ormed By: [place] [address] Wrapper Stitcher: Hung Arevalo III, M.D. CLIA#: [id number] Performed By: #### A 1C, TSH, FT4, ENA1, COPPER, MMA, VITB6 #### [place] [address] #### FOL, B12, IFES, SPE #### [address] [address] Sm Antibody Qual Negative Normal Negative [facility] ([place]) Comment on above: Result Comment: Anti -Sm (Gonzales) antibody is used as an aid in diagnosis of systemic lupus erythematosus and its presence is associated with renal disease. A negative result cannot rule out systemic lupus erythematosus. Clinical correlation is required. Test Methodology: Multiplex flow immunoassay. Performed By: [facility] [address] [place], [place] [id number] Wrapper Stitcher: Hung Arevalo III, M.D. CLIA#: [id number] Performed By: #### A 1C, TSH, FT4, ENA1, COPPER, MMA, VITB6 #### [address] [address] #### FOL, B12, IFES, SPE #### [address] [address] SS-A Antibody <0.2 Normal <1.0 [facility] ([place]) Comment on above: Result Comment: Test Methodology: Multiplex flow immunoassay. Anti-SSA (anti-Ro) antibody is used as an aid in diagnosis of a variety of systemic autoimmune diseases, Sjogren's syndrome among others. Clinical correlation is required. Test Methodology: Multiplex flow immunoassay. Performed By: [facility] [address] [place] [address] Wrapper Stitcher: Hung Arevalo III, M.D. CLIA#: [id number] Performed By: #### A 1C, TSH, FT4, ENA1, COPPER, MMA, VITB6 #### [place] [address] #### FOL, B12, IFES, SPE #### [address] [address] SS-B Antibody <0.2 Normal <1.0 [facility] ([place]) Comment on above: Result Comment: Anti -SSB (anti-La) antibody is used as an aid in diagnosis of a variety of systemic autoimmune diseases, especially for Sjogren's syndrome and systemic lupus erythematosus. Clinical correlation is required. Test Methodology: Multiplex flow immunoassay. Performed By: [facility] [address] [place] [address] Wrapper Stitcher: Hung Arevalo III, M.D. CLIA#: [id number] Performed By: #### A 1C, TSH, FT4, ENA1, COPPER, MMA, VITB6 #### [address] [address] #### FOL, B12, IFES, SPE #### [address] [address] SSA Antibody Qualitative Negative Normal Negative [facility] ([place]) Comment on above: Result Comment: Perf ormed By: [place] [id number] Wrapper Stitcher: Hung Arevalo III, M.D. CLIA#: [id number] Performed By: #### A 1C, TSH, FT4, ENA1, COPPER, MMA, VITB6 #### [address] [address] #### FOL, B12, IFES, SPE #### [place] [address] SSB Antibody Qualitative Negative Normal Negative [facility] ([place]) Comment on above: Result Comment: Perf ormed By: [place] [id number] Wrapper Stitcher: Hung Arevalo III, M.D. CLIA#: [id number] Performed By: #### A 1C, TSH, FT4, ENA1, COPPER, MMA, VITB6 #### [place] [address] #### FOL, B12, IFES, SPE #### [place] [address] A1Con 02-27-2022 HbA1c (Bld) [Mass fraction] 5.8 % Normal 4.3-6.4 [facility] ([place]) Comment on above: Performed By: #### A 1C, TSH, FT4, ENA1, COPPER, MMA, VITB6 #### [address] [address] #### FOL, B12, IFES, SPE #### [place] [address] B12on 02-27-2022 Cobalamin (Vitamin B12) [Mass/Vol] 536 pg/mL Normal 211-911 [facility] ([place]) Comment on above: Performed By: #### A 1C, TSH, FT4, ENA1, COPPER, MMA, VITB6 #### [address] [address] #### FOL, B12, IFES, SPE #### [place] [id number] FOLon 02-27-2022 Folate 11.66 ng/mL Normal 5.38-24.00 [facility] ([place]) Comment on above: Performed By: #### A 1C, TSH, FT4, ENA1, COPPER, MMA, VITB6 #### [address] [address] #### FOL, B12, IFES, SPE #### [place] [address] FT4on 02-27-2022 Free T4 [Mass/Vol] 0.88 ng/dL Normal 0.76-1.46 [facility] ([place]) Comment on above: Performed By: #### A 1C, TSH, FT4, ENA1, COPPER, MMA, VITB6 #### [address] [address] #### FOL, B12, IFES, SPE #### [place] [address] SPEon 02-27-2022 Total Protein 6.9 G/dL Normal 5.7-8.2 [facility] ([place]) Comment on above: Result Comment: No te - New Reference Range in effect 20 Performed By: #### A 1C, TSH, FT4, ENA1, COPPER, MMA, VITB6 #### [address] [address] #### FOL, B12, IFES, SPE #### [place] [address] TSHon 02-27-2022 TSH Qn 2.20 m[IU]/L Normal 0.36-3.74 [facility] ([place]) Comment on above: Performed By: #### A 1C, TSH, FT4, ENA1, COPPER, MMA, VITB6 #### [address] [address] #### FOL, B12, IFES, SPE #### [place] [address] Absolute lymphocyte counton 02-07-2022 Lymphocytes Auto (Unsp spec) [#/Vol] 1.49 10*3/uL 0.83-4.51 [facility] Work Phone: Basophil percentageon 2021 Basophils/100 WBC (Bld) 0.7 % 0-1 [facility] Work Phone: Chloride [Moles/Vol] 108 mmol/L 98-107 [facility]: Eosinophils/100 WBC (Bld) 2.7 % 0-5 [facility] Work Phone: Glucose [Mass/Vol] 125 mg/dL 74-106 [facility] Work Phone: Comment on above: Fasting Glucose resu lt from 100 to 125 mg/dL suggests IMPAIRED HOMEOSTASIS per A.D.A. criteria. Neutrophils (Bld) [#/Vol] 3.5 10*3/uL 2.0-7.7 [facility] Work Phone: Neutrophils/100 WBC (Bld) 62.5 % 47-70 [facility] Work Phone: Potassium [Moles/Vol] 4.0 mmol/L 3.5-5.1 [facility] Work Phone: Comment on above: Slight Hemolysis, Re sult may be falsely increased. Sodium [Moles/Vol] 139 mmol/L 136-145 [facility] Work Phone: WBC (Bld) [#/Vol] 5.6 10*3/uL 4.4-11.0 [facility] Work Phone: Blood erythrocytes count (nu mber/volume)on 02-07-2022 RBC (Bld) [#/Vol] 5.16 10*6/uL 4.6-6.2 [facility] Work Phone: Blood hemoglobin measurement (mass/volume)on 02-07-2022 Hemoglobin (Bld) [Mass/Vol] 16.1 g/dL 13.0-16.5 [facility] Work Phone: Blood lymphocytes/100 leukoc yteson 02-07-2022 Lymphocytes/100 WBC (Bld) 26.7 % 19-41 [facility] Work Phone: Blood monocytes/100 leukocyt eson 02-07-2022 Monocytes/100 WBC (Bld) 7.2 % 0-10 [facility] Work Phone: Blood platelet mean volumeon 02-07-2022 Platelet mean volume (Bld) [Entitic vol] 9.7 fL 6.2-12.0 [facility] Work Phone: Determination of erythrocyte mean corpuscular volume (MCV)on 02-07-2022 MCV (RBC) [Entitic vol] 89.5 fL 80-94 [facility] Work Phone: Hematocrit Auto (Bld) [Volum e fraction]on 02-07-2022 Hematocrit (Bld) [Volume fraction] 46.2 % 40-54 [facility] Work Phone: Laboratory - Chemistry and C hemistry - challengeon 02-07-2022 CO2 [Moles/Vol] 24.0 mmol/L 21.0-32.0 [facility] Work Phone: Urea nitrogen/Creatinine [Mass ratio] 10.5 mg/mg 10-20 [facility] Work Phone: [phone] Laboratory - Hematology and Cell countson 02-07-2022 Erythrocyte distribution width (RBC) [Entitic vol] 41.1 fL 35.1-43.9 [facility] Work Phone: [phone] Erythrocyte distribution width (RBC) [Ratio] 12.5 % 11.6-14.6 [facility] Work Phone: Immature granulocytes/100 WBC (Bld) 0.200 % 0.0-0.9 [facility] Work Phone: Comment on above: IG% - Immature Granu locytes (promyelocytes, myelocytes and metamyelocytes) > 1% indicates that a LEFT SHIFT is Present. MCH (RBC) [Entitic mass] 31.2 pg 27.0-32.0 [facility] Work Phone: Nucleated RBC/100 WBC (Bld) [Ratio] 0 % 0-5 [facility] Work Phone: MCHC Auto (RBC) [Mass/Vol]on 02-07-2022 MCHC (RBC) [Mass/Vol] 34.8 g/dL 32-36 [facility] Work Phone: No Panel Informationon 02-07 Estimated GFR (MDRD) Amer 75 mL/min >60 [facility] Work Phone: Comment on above: GFR Calc Estimated GFR (MDRD) Non-Af Amer 62 mL/min >60 [facility] Work Phone: Comment on above: Non- GFR Calc Platelets bldon 02-07-2022 Platelets (Bld) [#/Vol] 225 10*3/uL 150-450 [facility] Work Phone: Serum or plasma calcium raul urement (mass/volume)on 02-07-2022 Calcium [Mass/Vol] 9.6 mg/dL 8.5-10.1 [facility] Work Phone: Serum or plasma creatinine m easurement (mass/volume)on 02-07-2022 Creatinine [Mass/Vol] 1.24 mg/dL 0.70-1.30 [facility] Work Phone: Comment on above: The validity of the calculated GFR & GFRAA in patients over 70 years has not been determined. Clinical correlation is essential. Serum or plasma urea nitroge n measurement (mass/volume)on 02-07-2022 Urea nitrogen [Mass/Vol] 13 mg/dL 7-18 [facility] Work Phone: Thin prep Papanicolaou smear with manual screeningon 02-07-2022 Thin prep Papanicolaou smear with manual screening 7 5-15 [facility] Work Phone: Basophil percentageon 2021 Chloride [Moles/Vol] 111 mmol/L 98-107 [facility] Work Phone: Cholesterol [Mass/Vol] 150 mg/dL <200 [facility] Work Phone: Comment on above: <200 mg/dL Desirable 200-240 mg/dL Borderline >240 mg/dL High Risk Glucose [Mass/Vol] 96 mg/dL 74-106 [facility] Work Phone: [phone] Potassium [Moles/Vol] 4.0 mmol/L 3.5-5.1 [facility] Work Phone: [phone] Sodium [Moles/Vol] 141 mmol/L 136-145 [facility] Work Phone: [phone] Triglyceride [Mass/Vol] 140 mg/dL [facility] Work Phone: Comment on above: The drugs N-Acetylcy steine and Metamizole may falsely depress this assay.Serum Triglycerides Reference Interval Normal <150 mg/dL Borderline high 150 - 199 mg/dL High 200 - 499 mg/dL Very High > or = 500 mg/dL Laboratory - Chemistry and C hemistry - challengeon 01-24-2022 CO2 [Moles/Vol] 24.0 mmol/L 21.0-32.0 [facility] Work Phone: Urea nitrogen/Creatinine [Mass ratio] 10.3 mg/mg 10-20 [facility] Work Phone: No Panel Informationon 01-24 Estimated GFR (MDRD) Amer 74 mL/min >60 [facility] Work Phone: [phone] Comment on above: GFR Calc Estimated GFR (MDRD) Non-Af Amer 61 mL/min >60 [facility] Work Phone: Comment on above: Non- GFR Calc Serum or plasma calcium raul urement (mass/volume)on 01-24-2022 Calcium [Mass/Vol] 10.0 mg/dL 8.5-10.1 [facility] Work Phone: [phone] Serum or plasma cholesterol in HDL measurement (mass/volume)on 01-24-2022 Cholesterol in HDL [Mass/Vol] 30 mg/dL [facility] Work Phone: Comment on above: The drugs N-Acetylcy steine and Metamizole may falsely depress this assay. Reference Range HDL <40 mg/dL Low HDL Cholesterol HDL >or= 60 mg/dL High HDL Cholesterol Serum or plasma cholesterol in VLDL measurement (mass/volume)on 01-24-2022 Cholesterol in VLDL [Mass/Vol] 28 mg/dL 5-40 [facility] Work Phone: [phone] Serum or plasma creatinine m easurement (mass/volume)on 01-24-2022 Creatinine [Mass/Vol] 1.26 mg/dL 0.70-1.30 [facility] Work Phone: Comment on above: The validity of the calculated GFR & GFRAA in patients over 70 years has not been determined. Clinical correlation is essential. Serum or plasma low density lipoprotein (LDL) cholesterol measurement (mass/volume)on 01-24-2022 Cholesterol in LDL [Mass/Vol] 92 mg/dL 0-130 [facility] Work Phone: [phone] Serum or plasma urea nitroge n measurement (mass/volume)on 01-24-2022 Urea nitrogen [Mass/Vol] 13 mg/dL 7-18 [facility] Work Phone: Thin prep Papanicolaou smear with manual screeningon 01-24-2022 Thin prep Papanicolaou smear with manual screening 6 5-15 [facility] Work Phone: [phone] Absolute lymphocyte counton 01-15-2022 Lymphocytes Auto (Unsp spec) [#/Vol] 1.95 10*3/uL 0.83-4.51 [facility] Work Phone: Basophil percentageon 2021 Basophils/100 WBC (Bld) 0.6 % 0-1 [facility] Work Phone: Chloride [Moles/Vol] 110 mmol/L 98-107 [facility] Work Phone: [phone] Eosinophils/100 WBC (Bld) 3.4 % 0-5 [facility] Work Phone: [phone] Glucose [Mass/Vol] 106 mg/dL 74-106 [facility] Work Phone: Comment on above: Fasting Glucose resu lt from 100 to 125 mg/dL suggests IMPAIRED HOMEOSTASIS per A.D.A. criteria. Neutrophils (Bld) [#/Vol] 5.1 10*3/uL 2.0-7.7 [facility] Work Phone: Neutrophils/100 WBC (Bld) 62.1 % 47-70 [facility] Work Phone: Potassium [Moles/Vol] 3.7 mmol/L 3.5-5.1 [facility] Work Phone: Sodium [Moles/Vol] 139 mmol/L 136-145 [facility] Work Phone: WBC (Bld) [#/Vol] 8.1 10*3/uL 4.4-11.0 [facility] Work Phone: Basophil percentage 5-10 SEEN /hpf [facility] Work Phone: Bilirubin Test strip Ql (U)o n 01-15-2022 Bilirubin Ql (U) Negative Negative [facility] Work Phone: [phone] Blood erythrocytes count (nu mber/volume)on 01-15-2022 RBC (Bld) [#/Vol] 4.96 10*6/uL 4.6-6.2 [facility] Work Phone: Blood hemoglobin measurement (mass/volume)on 01-15-2022 Hemoglobin (Bld) [Mass/Vol] 14.8 g/dL 13.0-16.5 [facility] Work Phone: Blood lymphocytes/100 leukoc yteson 01-15-2022 Lymphocytes/100 WBC (Bld) 24.0 % 19-41 [facility] Work Phone: Blood monocytes/100 leukocyt eson 01-15-2022 Monocytes/100 WBC (Bld) 9.0 % 0-10 [facility] Work Phone: Blood platelet mean volumeon 01-15-2022 Platelet mean volume (Bld) [Entitic vol] 9.9 fL 6.2-12.0 [facility] Work Phone: [phone] Determination of erythrocyte mean corpuscular volume (MCV)on 01-15-2022 MCV (RBC) [Entitic vol] 89.1 fL 80-94 [facility] Work Phone: [phone] Hematocrit Auto (Bld) [Volum e fraction]on 01-15-2022 Hematocrit (Bld) [Volume fraction] 44.2 % 40-54 [facility] Work Phone: [phone] Ketones Test strip Ql (U)on 01-15-2022 Ketones Ql (U) 5 mg/dl Negative [facility] Work Phone: Laboratory - Chemistry and C hemistry - challengeon 01-15-2022 CO2 [Moles/Vol] 24.0 mmol/L 21.0-32.0 [facility] Work Phone: [phone] Urea nitrogen/Creatinine [Mass ratio] 9.1 mg/mg 10-20 [facility] Work Phone: [phone] Laboratory - Hematology and Cell countson 01-15-2022 Erythrocyte distribution width (RBC) [Entitic vol] 42.2 fL 35.1-43.9 [facility] Work Phone: [phone] Erythrocyte distribution width (RBC) [Ratio] 12.9 % 11.6-14.6 [facility] Work Phone: [phone] Immature granulocytes/100 WBC (Bld) 0.900 % 0.0-0.9 [facility] Work Phone: [phone] Comment on above: IG% - Immature Granu locytes (promyelocytes, myelocytes and metamyelocytes) > 1% indicates that a LEFT SHIFT is Present. MCH (RBC) [Entitic mass] 29.8 pg 27.0-32.0 [facility] Work Phone: [phone] Nucleated RBC/100 WBC (Bld) [Ratio] 0 % 0-5 [facility] Work Phone: [phone] MCHC Auto (RBC) [Mass/Vol]on 01-15-2022 MCHC (RBC) [Mass/Vol] 33.5 g/dL 32-36 [facility] Work Phone: Mucus LM Ql (Urine sed)on Mucus Ql (Urine sed) 0 SEEN /hpf [facility] Work Phone: Nitrite Test strip Ql (U)on 01-15-2022 Nitrite Ql (U) Negative Negative [facility] Work Phone: No Panel Informationon 01-15 Estimated Creatinine Clearance Calc 41.61 ml/min [facility] Work Phone: Estimated GFR (MDRD) Amer 47 mL/min >60 [facility] Work Phone: Comment on above: GFR Calc Estimated GFR (MDRD) Non-Af Amer 39 mL/min >60 [facility] Work Phone: Comment on above: Non- GFR Calc Platelets bldon 01-15-2022 Platelets (Bld) [#/Vol] 230 10*3/uL 150-450 [facility] Work Phone: Protein Test strip Ql (U)on 01-15-2022 Protein Ql (U) Negative Negative [facility] Work Phone: [phone] Serum or plasma calcium raul urement (mass/volume)on 01-15-2022 Calcium [Mass/Vol] 9.5 mg/dL 8.5-10.1 [facility] Work Phone: [phone] Serum or plasma creatinine m easurement (mass/volume)on 01-15-2022 Creatinine [Mass/Vol] 1.86 mg/dL 0.70-1.30 [facility] Work Phone: Comment on above: The validity of the calculated GFR & GFRAA in patients over 70 years has not been determined. Clinical correlation is essential. Serum or plasma urea nitroge n measurement (mass/volume)on 01-15-2022 Urea nitrogen [Mass/Vol] 17 mg/dL 7-18 [facility] Work Phone: [phone] Squamous epithelial cells de tection in urine sediment by light microscopyon 01-15-2022 Epithelial cells.squamous LM Ql (Urine sed) 0 SEEN /hpf [facility] Work Phone: Thin prep Papanicolaou smear with manual screeningon 01-15-2022 Thin prep Papanicolaou smear with manual screening 5 5-15 [facility] Work Phone: Urine blood detectionon 01-02 RBC Ql (U) Negative Negative [facility] Work Phone: RBC Ql (U) 0 SEEN /hpf [facility] Work Phone: Urine clarityon 01-15-2022 Clarity (U) Clear Clear [facility] Work Phone: Urine color determinationon 01-15-2022 Color (U) Yellow Yellow [facility] Work Phone: Urine glucose detectionon Glucose Ql (U) Normal mg/dl Normal [facility] Work Phone: Urine leukocyte esterase det ection by dipstickon 01-15-2022 Leukocyte esterase Test strip Ql (U) 25 /ul Negative [facility] Work Phone: Urine pHon 01-15-2022 pH (U) 6.0 [pH] [facility] Work Phone: Urine sediment bacteria coun t by microscopy (number/high power field)on 01-15-2022 Bacteria LM.HPF (Urine sed) [#/Area] 0 /[HPF] None Seen [facility] Work Phone: Urine specific gravity measu rementon 01-15-2022 Specific gravity (U) [Rel density] 1.015 [facility] Work Phone: Urobilinogen Auto test strip Ql (U)on 01-15-2022 Urobilinogen Ql (U) Normal mg/dl Normal [facility] Work Phone: COVID-19Ordered By: Hamilton marc on 05-31-2021 SARS-CoV-2 (COVID-19) RNA TAYLA+probe Ql (Unsp spec) Not detected Not Detected [facility] Work Phone: Comment on above: Not Detected. Expected Result: Not Detected _ Real-time, RT-PCR performed on the [employer] System by the [facility] [facility]. Negative results do not preclude SARS-CoV-2 infection and should not be used as the sole basis for treatment or other patient management decisions. This assay was developed by [employer] and distributed under an Emergency Use Authorization (EUA) granted by the FDA for the qualitative detection of SARS-CoV-2 nucleic acid. Test Performed by [facility], [address] [place] [id number] [facility] Work Phone: [id number] 05-31-2021 SARS-CoV-2 (COVID-19) RNA TAYLA+probe Ql (Unsp spec) SARS-CoV-2 --> Status: F Not Detected. Expected Result: Not Detected _ Real-time, RT-PCR performed on the [employer] System by the [facility] [employer] [facility] Service. Negative results do not preclude SARS-CoV-2 infection and should not be used as the sole basis for treatment or other patient management decisions. This assay was developed by [employer] and distributed under an Emergency Use Authorization (EUA) granted by the FDA for the qualitative detection of SARS-CoV-2 nucleic acid. Expected Result: Not Detected _ Real-time, RT-PCR performed on the [employer] System by the [facility]. Negative results do not preclude SARS-CoV-2 infection and should not be used as the sole basis for treatment or other patient management decisions. This assay was developed by [employer] and distributed under an Emergency Use Authorization (EUA) granted by the FDA for the qualitative detection of SARS-CoV-2 nucleic acid. Normal [facility] [employer] Comment on above: Performed By: #### C OVID #### [facility] [address] [place] [id number] VL DUP LOWER EXTREMITY VENOU S BILATERALOrdered By: Hamilton Mckinnon on 05-29-2021 [facility] -------- Lower Extremity Venous Duplex Report Patient Luis Manuel, : 1955 Study 05/29/2021 Name: Albin Zazueta (yr) Date: Patient [id number] Age: 66 Account: [id number] ID: Gender: M Loc: 6111 BP: Ordering Physician: Hamilton Mckinnon Coal Deliverer: Silva Ann RVT Interpreting Physician: Paco Tijerina M.D. -------- Location: [facility] -------- Indications: Lower extremity swelling and [...] supine position. Images were obtained using a [employer] E9 vascular ultrasound machine. -------- Venous flow [...] + -------+ --------+ (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 [facility] Work Phone: [place]ynor, [employer] Incoming Cardiology Results From [email or web address] - 05/29/2021 4:51 PM EDT [facility] -------- Lower Extremity Venous Duplex Report Patient Luis Manuel, : 1955 Study 05/29/2021 Name: Albin Zazueta (yr) Date: Patient Age: 66 Account: [id number] ID: Gender: Nilam Loc: 6111 BP: Ordering Physician: Hamilton Mckinnon Coal Deliverer: Silva Ann RVT Interpreting Physician: Paco Tijerina M.D. -------- Location: [facility] -------- Indications: Lower extremity swelling and [...] supine position. Images were obtained using a [employer] E9 vascular ultrasound machine. -------- Venous flow [...] signed by Paco Tijerina M.D. 05/29/2021 16:51 [facility] Work Phone: [facility] Work Phone: VL Venous Duplex US Lower Ex t Bilateralon 05-29-2021 VL Venous Duplex US Lower Ext Bilateral Patient Name: ALBIN ISSA Ultrasound ACCESSION EXAM DATE/TIME PROCEDURE ORDERING PROVIDER [id number] 05/29/2021 15:17 EDT VL Venous Duplex US [id number] -HAMILTON MCKINNON Lower Ext Bilateral CPT code 66087 Reason For Exam (VL Venous Duplex US Lower Ext Bilateral) edema Report [facility] -------- Lower Extremity Venous Duplex Report Patient Luis Manuel : 1955 Study 05/29/2021 Name: Albin Zazueta (yr) Date: Patient Age: 66 Account: [id number] ID: Gender: M Loc: 6111 BP: Ordering Physician: Hamilton Mckinnon Coal Deliverer: Silva Ann RVT Interpreting Physician: Paco Tijerina M.D. -------- Location: [facility] -------- Indications: Lower extremity swelling and [...] Images were obtained Ultrasound Report using a [employer] E9 vascular ultrasound machine. -------- Venous flow [...] -------+ --------+ (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 Normal [facility] Basic Metabolic Panelon 06-2 Anion gap [Moles/Vol] 5 mmol/L Normal 3-13 [facility] Comment on above: Performed By: #### C OVID #### [facility] [address], [place] Calcium [Mass/Vol] 9.4 mg/dL Normal 8.4-10.4 [facility] Comment on above: Performed By: #### C OVID #### [facility] [address], [place] CO2 [Moles/Vol] 23 mmol/L Normal 22-30 [facility] Comment on above: Performed By: #### C OVID #### [facility] [address] [place] [address] Glucose [Mass/Vol] 122 mg/dL High 70-100 [facility] Comment on above: Performed By: #### C OVID #### [facility] [address], [place] Urea nitrogen [Mass/Vol] 15 mg/dL Normal 7-20 [facility] Comment on above: Performed By: #### C OVID #### [facility] [address], [place] Creatinine [Mass/Vol] 1.13 mg/dL Normal 0.52-1.25 [facility] Comment on above: Performed By: #### C OVID #### [facility] [address] [place] [facility] [place] [address] GFR/1.73 sq M.predicted among blacks MDRD (S/P/Bld) [Vol rate/Area] 78.0 mL/min/{1.73_m2} Normal >60 [facility] Comment on above: Performed By: #### C OVID #### [facility] [address] [place] [address] GFR/1.73 sq M.predicted among non-blacks MDRD (S/P/Bld) [Vol rate/Area] 67.3 mL/min/{1.73_m2} Normal >60 [facility] Comment on above: Result Comment: KDIG O [...] secretion. Performed By: #### C OVID #### [address] Potassium [Moles/Vol] 4.5 mmol/L Normal 3.5-5.1 [facility] Comment on above: Performed By: #### C OVID #### [address] Chloride [Moles/Vol] 109 mmol/L High 98-107 [facility] Comment on above: Performed By: #### C OVID #### [address] Sodium [Moles/Vol] 137 mmol/L Normal 135-145 [facility] Comment on above: Performed By: #### C OVID #### [address] Basic Metabolic PanelOrdered By: Sd Moreno on 05-25-2021 Anion gap [Moles/Vol] 5 mmol/L 3 - 13 mmol/L [facility] Work Phone: Calcium [Mass/Vol] 9.4 mg/dL 8.4 - 10. 4 mg/dL [facility] Work Phone: [phone] Chloride [Moles/Vol] 109 mmol/L High 98 - 10 7 mmol/L [facility] Work Phone: [phone] CO2 [Moles/Vol] 23 mmol/L 22 - 30 mmol/L [facility] Work Phone: [phone] Creatinine [Mass/Vol] 1.13 mg/dL 0.52 - 1.25 mg/dL [employer] [facility] Work Phone: [phone] IF NonAfrican Portuguese 67.3 mL/min >60 [facility] Work Phone: [phone] Comment on above: KDIGO guidelines pro vide [...] rate/Area] 78.0 mL/min/{1.73_m2} >60 [facility] Work Phone: [phone] Glucose [Mass/Vol] 122 mg/dL High 70 - 100 mg/dL [facility] Work Phone: [phone] Potassium [Moles/Vol] 4.5 mmol/L 3.5 - 5.1 mmol/L [facility] Work Phone: [phone] Sodium [Moles/Vol] 137 mmol/L 135 - 145 mmol/L [facility] Work Phone: [phone] Urea nitrogen (BldV) [Mass/Vol] 15 mg/dL 7 - 20 mg/dL [employer] [facility] [facility] Work Phone: [phone] Auto DifferentialOrdered By: Sd Moreno on 05-25-2021 Absolute Baso # 0.0 10*3/uL 0.0 - 0.2 10*3/uL [facility] Work Phone: 1 Absolute Neut # 9.2 10*3/uL High 1.8 - 7.0 10*3/uL [facility] Work Phone: 1 Basophils/100 WBC (Bld) 0.1 % 0.0 - 2.0 % [facility] Work Phone: 1 Eosinophils (Bld) [#/Vol] 0.0 10*3/uL 0.0 - 0.5 10*3/uL [facility] Work Phone: 1 Eosinophils/100 WBC (Bld) 0.1 % Low 1.0 - 6.0 % [facility] Work Phone: Granulocytes/100 WBC (Bld) 88.1 % High 40.0 - 80.0 % [facility] Work Phone: Hematocrit (Bld) [Volume fraction] 34.4 % Low 40.0 - 52.0 % [facility] Work Phone: Hemoglobin.gastrointest inal spec 1 Ql (Stl) 11.9 g/dL Low 13.0 - 18.0 g/dL [facility] Work Phone: Interpretation and review of laboratory results Abnormal [employer] [facility] Work Phone: Lymphocytes (Bld) [#/Vol] 0.7 10*3/uL Low 1.0 - 4.3 10*3/uL [facility] Work Phone: Lymphocytes/100 WBC (Bld) 6.6 % Low 20.0 - 40.0 % [facility] Work Phone: MCH (RBC) [Entitic mass] 30.6 pg 26.0 - 34.0 pg [facility] Work Phone: MCHC (RBC) [Mass/Vol] 34.7 % 32.0 - 36.0 % [facility] Work Phone: MCV (RBC) [Entitic vol] 88.4 fL 80.0 - 98.0 fL [facility] Work Phone: [phone] 22 Monocytes (Bld) [#/Vol] 0.5 10*3/uL 0.0 - 0.8 10*3/uL [employer] [facility] Work Phone: [phone] Monocytes/100 WBC (Bld) 5.1 % 2.0 - 10.0 % [facility] Work Phone: 1 Platelet distribution width (Bld) [Ratio] 13.7 % 11.5 - 14.5 % [facility] Work Phone: 1 22 Platelet mean volume (Bld) [Entitic vol] 8.0 fL 7.4 - 10.4 fL [facility] Work Phone: 1) Platelets (Bld) [#/Vol] 171 10*3/uL 140 - 440 10*3/uL [facility] Work Phone: 1) RBC (Bld) [#/Vol] 3.90 10*6/uL Low 4.40 - 5.9 0 10*6/uL [facility] Work Phone: 1) WBC (Bld) [#/Vol] 10.4 10*3/uL 3.6 - 10.7 10*3/uL [facility] Work Phone: [phone] Test Performed by [facility] [employer], [address] [place] [address] [facility] Work Phone: 1 [facility] Work Phone: 1 Hemogram w/ Autodiffon 05-25 Abs Baso Cnt 0.0 10*3/uL Normal 0.0-0.2 [facility] Comment on above: Performed By: #### C OVID #### [facility] [employer] [address] [place] [phone] Abs Neutrophile Cnt 9.2 10*3/uL High 1.8-7.0 [facility] Comment on above: Performed By: #### C OVID #### [facility] [address] [place] [phone] Basophils/100 WBC (Bld) 0.1 % Normal 0.0-2.0 S [facility] Comment on above: Performed By: #### C OVID #### [facility] [address] [place] [address] Eosinophils (Bld) [#/Vol] 0.0 10*3/uL Normal 0.0-0.5 [facility] Comment on above: Performed By: #### C OVID #### [facility] [address] [place] [address] Eosinophils/100 WBC (Bld) 0.1 % Low 1.0-6.0 [facility] Comment on above: Performed By: #### C OVID #### [facility] [address] [place] [address] Erythrocyte distribution width (RBC) [Ratio] 13.7 % Normal 11.5-14.5 [facility] Comment on above: Performed By: #### C OVID #### [place] [address] [place] [address] Granulocytes/100 WBC (Bld) 88.1 % High 40.0-80.0 [facility] Comment on above: Performed By: #### C OVID #### [place] [address] [place] [address] Hematocrit (Bld) [Volume fraction] 34.4 % Low 40.0-52.0 [facility] Comment on above: Performed By: #### C OVID #### [place] [address] [place] [address] Hemoglobin (Bld) [Mass/Vol] 11.9 g/dL Low 13.0-18.0 [facility] Comment on above: Performed By: #### C OVID #### [facility] [address] [place] [address] Lymphocytes (Bld) [#/Vol] 0.7 10*3/uL Low 1.0-4.3 [facility] Comment on above: Performed By: #### C OVID #### [place] [address] [place] [address] Lymphocytes/100 WBC (Bld) 6.6 % Low 20.0-40.0 [facility] Comment on above: Performed By: #### C OVID #### [address] [address] [address] [place], [place] MCH (RBC) [Entitic mass] 30.6 pg Normal 26.0-34.0 [facility] Comment on above: Performed By: #### C OVID #### [address] [address] [address] [place] MCHC 34.7 % Normal 32.0-36.0 [facility] Comment on above: Performed By: #### C OVID #### [address] [address] [address] [place] MCV (RBC) [Entitic vol] 88.4 fL Normal 80.0-98.0 S [facility] Comment on above: Performed By: #### C OVID #### [address] [address] [address] [place] Monocytes (Bld) [#/Vol] 0.5 10*3/uL Normal 0.0-0.8 [facility] Comment on above: Performed By: #### C OVID #### [address] [address] [address] [place] Monocytes/100 WBC (Bld) 5.1 % Normal 2.0-10.0 [facility] Comment on above: Performed By: #### C OVID #### [address] [address] [address] [place] Platelet mean volume (Bld) [Entitic vol] 8.0 fL Normal 7.4-10.4 [facility] Comment on above: Performed By: #### C OVID #### [address] [address] [address] [place] Platelets (Bld) [#/Vol] 171 10*3/uL Normal 140-440 [facility] Comment on above: Performed By: #### C OVID #### [address] [place] RBC (Bld) [#/Vol] 3.90 10*6/uL Low 4.40-5.90 [facility] Comment on above: Performed By: #### C OVID #### [address] [address] [address] [place] WBC (Bld) [#/Vol] 10.4 10*3/uL Normal 3.6-10.7 [facility] Comment on above: Performed By: #### C OVID #### [address] [address] Magnesiumon 05-25-2021 Magnesium [Mass/Vol] 2.0 mg/dL Normal 1.6-2.3 [facility] Comment on above: Performed By: #### C OVID #### [address] [address] MagnesiumOrdered By: Sd trevino on 05-25-2021 Magnesium [Mass/Vol] 2.0 mg/dL 1.6 - 2 .3 mg/dL [facility] Work Phone: No Panel InformationOrdered By: Sd Moreno on 05-25-2021 Interpretation and review of laboratory results Abnormal [facility] Work Phone: Test Performed by [address] [address] [facility] Work Phone: [facility] Work Phone: Phosphoruson 05-25-2021 Phosphate [Mass/Vol] 1.8 mg/dL Low 2.5-4.5 [facility] Comment on above: Performed By: #### C OVID #### [address] [address] PhosphorusOrdered By: Sd Moreno on 05-25-2021 Phosphate [Mass/Vol] 1.8 mg/dL Low 2.5 - 4 .5 mg/dL [facility] Work Phone: Basic Metabolic Panelon 05-03 Calcium [Mass/Vol] 9.3 mg/dL Normal 8.4-10.4 [facility] Comment on above: Performed By: #### P HOS3, HEMDF, MG3, BMP3 #### [address] [address] Anion gap [Moles/Vol] 5 mmol/L Normal 3-13 [facility] Comment on above: Performed By: #### P HOS3, HEMDF, MG3, BMP3 #### [address] CO2 [Moles/Vol] 23 mmol/L Normal 22-30 [facility] Comment on above: Performed By: #### P HOS3, HEMDF, MG3, BMP3 #### [address] Creatinine [Mass/Vol] 1.02 mg/dL Normal 0.52-1.25 [facility] Comment on above: Performed By: #### P HOS3, HEMDF, MG3, BMP3 #### [address] GFR/1.73 sq M.predicted among blacks MDRD (S/P/Bld) [Vol rate/Area] 88.3 mL/min/{1.73_m2} Normal >60 [facility] Comment on above: Performed By: #### P HOS3, HEMDF, MG3, BMP3 #### [address] GFR/1.73 sq M.predicted among non-blacks MDRD (S/P/Bld) [Vol rate/Area] 76.2 mL/min/{1.73_m2} Normal >60 [facility] Comment on above: Result Comment: KDIG [...] #### P HOS3, HEMDF, MG3, BMP3 #### [address] [address] [address] [place] Glucose [Mass/Vol] 100 mg/dL Normal 70-100 [facility] Comment on above: Performed By: #### P HOS3, HEMDF, MG3, BMP3 #### [address] [address] [address] [place] Urea nitrogen [Mass/Vol] 15 mg/dL Normal 7-20 [facility] Comment on above: Performed By: #### P HOS3, HEMDF, MG3, BMP3 #### [address] [address] [address] [place] Chloride [Moles/Vol] 109 mmol/L High 98-107 [facility] Comment on above: Performed By: #### P HOS3, HEMDF, MG3, BMP3 #### [address] [address] [address] [place] Potassium [Moles/Vol] 4.0 mmol/L Normal 3.5-5.1 [facility] Comment on above: Performed By: #### P HOS3, HEMDF, MG3, BMP3 #### [address] [address] [place] Sodium [Moles/Vol] 137 mmol/L Normal 135-145 [facility] Comment on above: Performed By: #### P HOS3, HEMDF, MG3, BMP3 #### [address] [address] [address] [place] Basic Metabolic PanelOrdered By: Linda Mcknight on 05-24-2021 Anion gap [Moles/Vol] 5 mmol/L 3 - 13 mmol/L [facility] Work Phone: Calcium [Mass/Vol] 9.3 mg/dL 8.4 - 10. 4 mg/dL [facility] Work Phone: [phone] Chloride [Moles/Vol] 109 mmol/L High 98 - 10 7 mmol/L [facility] Work Phone: CO2 [Moles/Vol] 23 mmol/L 22 - 30 mmol/L [facility] Work Phone: [phone] Creatinine [Mass/Vol] 1.02 mg/dL 0.52 - 1.25 mg/dL [facility] [employer] [facility] Work Phone: [phone] EGFR IF NonAfrican Portuguese 76.2 mL/min >60 [facility] Work Phone: [phone] Comment on above: KDIGO guidelines pro vide [...] MDRD (S/P/Bld) [Vol rate/Area] 88.3 mL/min/{1.73_m2} >60 [facility] Work Phone: [phone] Glucose [Mass/Vol] 100 mg/dL 70 - 100 mg/dL [facility] Work Phone: [phone] Interpretation and review of laboratory results Abnormal [facility] Work Phone: [phone] Potassium [Moles/Vol] 4.0 mmol/L 3.5 - 5.1 mmol/L [facility] Work Phone: [phone] Sodium [Moles/Vol] 137 mmol/L 135 - 145 mmol/L [facility] Work Phone: [phone] Urea nitrogen (BldV) [Mass/Vol] 15 mg/dL 7 - 20 mg/dL [facility] Work Phone: [phone] CBC auto differentialOrdered By: Linda Mcknight on 05-24-2021 Absolute Baso # 0.0 10*3/uL 0.0 - 0.2 10*3/uL [facility] Work Phone: 1 Absolute Neut # 5.5 10*3/uL 1.8 - 7.0 10*3/uL [facility] Work Phone: 1 Basophils/100 WBC (Bld) 0.5 % 0.0 - 2.0 % [facility] Work Phone: 1 Eosinophils (Bld) [#/Vol] 0.3 10*3/uL 0.0 - 0.5 10*3/uL [facility] Work Phone: 1 Eosinophils/100 WBC (Bld) 3.3 % 1.0 - 6.0 % [facility] Work Phone: 1 Granulocytes/100 WBC (Bld) 72.8 % 40.0 - 80.0 % [facility] Work Phone: Hematocrit (Bld) [Volume fraction] 37.4 % Low 40.0 - 52.0 % [facility] Work Phone: Hemoglobin.gastrointest inal spec 1 Ql (Stl) 12.8 g/dL Low 13.0 - 18.0 g/dL [facility] Work Phone: [phone] Interpretation and review of laboratory results Abnormal [employer] [facility] [facility] Work Phone: Lymphocytes (Bld) [#/Vol] 1.3 10*3/uL 1.0 - 4.3 10*3/uL [facility] Work Phone: Lymphocytes/100 WBC (Bld) 17.3 % Low 20.0 - 40.0 % [facility] Work Phone: MCH (RBC) [Entitic mass] 30.8 pg 26.0 - 34.0 pg [facility] Work Phone: 1 MCHC (RBC) [Mass/Vol] 34.3 % 32.0 - 36.0 % [facility] Work Phone: 1 MCV (RBC) [Entitic vol] 89.9 fL 80.0 - 98.0 fL [facility] Work Phone: Monocytes (Bld) [#/Vol] 0.5 10*3/uL 0.0 - 0.8 10*3/uL [facility] Work Phone: [phone] Monocytes/100 WBC (Bld) 6.1 % 2.0 - 10.0 % [facility] Work Phone: [phone] Platelet distribution width (Bld) [Ratio] 14.2 % 11.5 - 14.5 % [facility] Work Phone: [phone] Platelet mean volume (Bld) [Entitic vol] 8.0 fL 7.4 - 10.4 fL [facility] Work Phone: [phone] Platelets (Bld) [#/Vol] 169 10*3/uL 140 - 440 10*3/uL [facility] Work Phone: [phone] RBC (Bld) [#/Vol] 4.17 10*6/uL Low 4.40 - 5.9 0 10*6/uL [facility] Work Phone: [phone] WBC (Bld) [#/Vol] 7.6 10*3/uL 3.6 - 10.7 10*3/uL [facility] Work Phone: [phone] Test Performed by [facility], [address] [place] [address] [facility] Work Phone: [phone] [facility] Work Phone: [phone] CR Chest 1 View Frontalon CR Chest 1 View Frontal Patient Name: ALBIN ISSA Diagnostic Radiology ACCESSION EXAM DATE/TIME PROCEDURE ORDERING PROVIDER [id number] 05/24/2021 05:59 EDT CR Chest 1 View Frontal MD RAYA, JUAN ALBERTO CPT code 12513 Reason For Exam (CR Chest 1 View [...] Transcribed Date and Time: 05/24/2021 8:47 Normal [facility] CR Elbow 3+ Views Lefton CR Elbow 3+ Views Left Patient Name: ALBIN ISSA [facility]#: [id number] Diagnostic Radiology ACCESSION EXAM DATE/TIME PROCEDURE ORDERING PROVIDER [id number] 05/24/2021 05:59 EDT CR Elbow 3+ Views Left MD FONTANA ALEX CPT code 23058 Reason For Exam (CR Elbow 3+ Views [...] Transcribed Date and Time: 05/24/2021 8:44 Normal [facility] CR Humerus 2+ Views Lefton 0 05-24-2021 CR Humerus 2+ Views Left Patient Name: ALBIN ISSA [facility]#: [id number] Diagnostic Radiology ACCESSION EXAM DATE/TIME PROCEDURE ORDERING PROVIDER [id number] 05/24/2021 17:43 EDT CR Humerus 2+ Views Left [id number] SD BHARDWAJ CPT code 31283 Reason For Exam (CR Humerus 2+ Views [...] Transcribed Date and Time: 05/24/2021 5:44 Normal [facility] EKG 12 LeadOrdered By: Juan Alberto Fontana on 05-24-2021 [facility] Test Date: 2021-05-24 Pat Name: ALBIN ISSA Department: 1AH6 Room: [facility] 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1955 Requested By: JUAN ALBERTO FONTANA Order Number: [id number] Reading : Nicolas Gonzales Measurements Intervals [place] Rate: 66 P: 33 IA: 183 QRS: -35 QRSD: 112 T: 52 QT: 426 QTc: 447 Interpretive Statements Sinus rhythm ANTEROLATERAL INFARCT, OLD Electronically Signed On 05-24-2021 15:05:50 EDT by Nicolas Gonzales [facility] Work Phone: [phone] [place], [facility] Incoming Cardiology Results From [facility] - 05/24/2021 3:06 PM EDT [facility] Test Date: 2021-05-24 Pat Name: ALBIN ISSA Department: 1AH6 Room: 1PAC 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 [address] Abs Neutrophile Cnt 5.5 10*3/uL Normal 1.8-7.0 [facility] Comment on above: Performed By: #### P HOS3, HEMDF, MG3, BMP3 #### [address] [address] Basophils/100 WBC (Bld) 0.5 % Normal 0.0-2.0 [facility] Comment on above: Performed By: #### P HOS3, HEMDF, MG3, BMP3 #### [address] [address] [place] [address] Eosinophils (Bld) [#/Vol] 0.3 10*3/uL Normal 0.0-0.5 [facility] Comment on above: Performed By: #### P HOS3, HEMDF, MG3, BMP3 #### [address] [address] Eosinophils/100 WBC (Bld) 3.3 % Normal 1.0-6.0 [facility] Comment on above: Performed By: #### P HOS3, HEMDF, MG3, BMP3 #### [address] [address] Erythrocyte distribution width (RBC) [Ratio] 14.2 % Normal 11.5-14.5 [facility] Comment on above: Performed By: #### P HOS3, HEMDF, MG3, BMP3 #### [address] [address] Granulocytes/100 WBC (Bld) 72.8 % Normal 40.0-80.0 [facility] Comment on above: Performed By: #### P HOS3, HEMDF, MG3, BMP3 #### [address], [place] Hematocrit (Bld) [Volume fraction] 37.4 % Low 40.0-52.0 [facility] Comment on above: Performed By: #### P HOS3, HEMDF, MG3, BMP3 #### [address] Hemoglobin (Bld) [Mass/Vol] 12.8 g/dL Low 13.0-18.0 [facility] Comment on above: Performed By: #### P HOS3, HEMDF, MG3, BMP3 #### [address] Lymphocytes (Bld) [#/Vol] 1.3 10*3/uL Normal 1.0-4.3 [facility] Comment on above: Performed By: #### P HOS3, HEMDF, MG3, BMP3 #### [address] Lymphocytes/100 WBC (Bld) 17.3 % Low 20.0-40.0 [facility] Comment on above: Performed By: #### P HOS3, HEMDF, MG3, BMP3 #### [address] MCH (RBC) [Entitic mass] 30.8 pg Normal 26.0-34.0 [facility] Comment on above: Performed By: #### P HOS3, HEMDF, MG3, BMP3 #### [address] MCHC 34.3 % Normal 32.0-36.0 [facility] Comment on above: Performed By: #### P HOS3, HEMDF, MG3, BMP3 #### [address] MCV (RBC) [Entitic vol] 89.9 fL Normal 80.0-98.0 [facility] Comment on above: Performed By: #### P HOS3, HEMDF, MG3, BMP3 #### [address] Monocytes (Bld) [#/Vol] 0.5 10*3/uL Normal 0.0-0.8 [facility] Comment on above: Performed By: #### P HOS3, HEMDF, MG3, BMP3 #### [facility] [address] [place], [place] Monocytes/100 WBC (Bld) 6.1 % Normal 2.0-10.0 [facility] Comment on above: Performed By: #### P HOS3, HEMDF, MG3, BMP3 #### [address] [address] [address] [place] Platelet mean volume (Bld) [Entitic vol] 8.0 fL Normal 7.4-10.4 [facility] Comment on above: Performed By: #### P HOS3, HEMDF, MG3, BMP3 #### [address] [address] [address] [place] Platelets (Bld) [#/Vol] 169 10*3/uL Normal 140-440 [facility] Comment on above: Performed By: #### P HOS3, HEMDF, MG3, BMP3 #### [address] [address] [address] [place] RBC (Bld) [#/Vol] 4.17 10*6/uL Low 4.40-5.90 [facility] Comment on above: Performed By: #### P HOS3, HEMDF, MG3, BMP3 #### [address] [address] [place] WBC (Bld) [#/Vol] 7.6 10*3/uL Normal 3.6-10.7 [facility] Comment on above: Performed By: #### P HOS3, HEMDF, MG3, BMP3 #### [address] [place] Magnesiumon 05-24-2021 Magnesium [Mass/Vol] 2.0 mg/dL Normal 1.6-2.3 [facility] Comment on above: Performed By: #### P HOS3, HEMDF, MG3, BMP3 #### [facility] [address] [place] [address] MagnesiumOrdered By: Sd trevino on 05-24-2021 Magnesium [Mass/Vol] 2.0 mg/dL 1.6 - 2 .3 mg/dL [facility] Work Phone: No Panel InformationOrdered By: Linda Mcknight on 05-24-2021 Test Performed by [facility], [address] [place] [address] [facility] Work Phone: [phone] [facility] Work Phone: [phone] OPERATIVE REPORTOrdered By: 3m Scanning on 05-24-2021 [facility] Work Phone: Op Noteon 05-24-2021 Op Note [place] [address] [address] [facility] [address] Dept: [phone] Loc: [phone] Operative Report Patient Name: Albin Issa Date of : 1955 Date of Surgery: 05/24/21 Pre-operative diagnosis: Left distal humeral shaft fracture Post-operative diagnosis: Same Procedure(s): Open reduction internal fixation of left humeral shaft fracture (CPT 52910) Surgeon: Paco Biswas M.D. Manager Of Broadcast Content(s): Frank Leo M.D. and Carol Ascencio M.D. [...] as well as medical complications such as OR, stroke, PE, DVT, and even . Pt [...] Biswas MD at 05/24/21, 6:39 PM Normal [facility] Phosphoruson 05-24-2021 Phosphate [Mass/Vol] 2.9 mg/dL Normal 2.5-4.5 [facility] [facility] Comment on above: Performed By: #### P HOS3, HEMDF, MG3, BMP3 #### [address] [address] PhosphorusOrdered By: Sd Moreno on 05-24-2021 Phosphate [Mass/Vol] 2.9 mg/dL 2.5 - 4 .5 mg/dL [facility] Work Phone: Prothrombin Timeon INR 1.0 Normal 0.9-1.1 [facility] [employer] [facility] Comment on above: Result Comment: Hilario mmended [...] Infarction Performed By: #### C OVID #### [facility] [address] [place] [phone] PT Coag (PPP) [Time] 11.2 s Normal 9.0-12.0 [facility] [facility] Comment on above: Result Comment: . Performed By: #### C OVID #### [employer] [facility] [address] [place] [phone] Protime-INROrdered By: Juan Alberto Fontana on 05-24-2021 INR Coag (Bld) [Relative time] 1.0 {INR} [facility] Work Phone: [phone] Comment on above: Recommended Anticoag ulant Therapy: [...] [Time] 11.2 s 9.0 - 12.0 s [facility] Work Phone: [phone] Comment on above: . Test Performed by [facility], [address] [place] [address] [facility] Work Phone: [phone] [facility] Work Phone: [phone] TS GELon 05-24-2021 TS GEL ABO Group: O Rh, Gel: POS Antibody Screen Gel: NEG Normal [facility] [employer] Comment on above: Performed By: #### T SGL #### [facility] [employer] TYPE AND SCREENOrdered By: Eder Fontana on 05-24-2021 ABO Grouping O [facility] Work Phone: [phone] Type Positive [facility] Work Phone: [phone] Test Performed by [facility], [address] [place] [address] [facility] Work Phone: [phone] [facility] Work Phone: [phone] XR CHEST 1 VWOrdered By: Magdalene Fontana on 05-24-2021 Patient Name: ALBIN ISSA Diagnostic Radiology ACCESSION EXAM DATE/TIME PROCEDURE ORDERING PROVIDER [id number] 05/24/2021 05:59 EDT CR Chest 1 View Frontal MD FONTANA ALEX CPT code 08915 Reason For Exam (CR Chest 1 View [...] LAURA Transcribed Date and Time: 05/24/2021 8:47 [facility] Work Phone: [place], [facility] Incoming Radiology Results From [facility] - 05/24/2021 8:51 AM EDT Patient Name: ALBIN ISSA Diagnostic Radiology ACCESSION EXAM DATE/TIME PROCEDURE ORDERING PROVIDER [id number] 05/24/2021 05:59 EDT CR Chest 1 View Frontal MD FONTANA ALEX CPT code 70145 Reason For Exam (CR Chest 1 View [...] Fontana on 05-24-2021 Patient Name: ALBIN ISSA [facility]#: [id number] Diagnostic Radiology ACCESSION EXAM DATE/TIME PROCEDURE ORDERING PROVIDER [id number] 05/24/2021 05:59 EDT CR Elbow 3+ Views Left MD FONTANA ALEX CPT code 88271 Reason For Exam (CR Elbow 3+ Views [...] LAURA Transcribed Date and Time: 05/24/2021 8:44 [facility] Work Phone: [facility] Results From [facility] - 05/24/2021 8:48 AM EDT Patient Name: ALBIN ISSA Diagnostic Radiology ACCESSION EXAM DATE/TIME PROCEDURE ORDERING PROVIDER [id number] 05/24/2021 05:59 EDT CR Elbow 3+ Views Left MD FONTANA ALEX CPT code 62722 Reason For Exam (CR Elbow 3+ Views [...] LAURA Transcribed Date and Time: 05/24/2021 8:44 [facility] Work Phone: [facility] Work Phone: XR HUMERUS LEFT (MIN 2 VIEWS )Ordered By: Sd Moreno on 05-24-2021 Patient Name: ALBIN ISSA Diagnostic Radiology ACCESSION EXAM DATE/TIME PROCEDURE ORDERING PROVIDER [id number] 05/24/2021 17:43 EDT CR Humerus 2+ Views Left 17179 -SD MORENO CPT code 75673 Reason For Exam (CR Humerus 2+ Views [...] Phone: [facility], [facility] Incoming Radiology Results From [facility] - 05/24/2021 5:47 PM EDT Patient Name: ALBIN ISSA Diagnostic Radiology ACCESSION EXAM DATE/TIME PROCEDURE ORDERING PROVIDER [id number] 05/24/2021 17:43 EDT CR Humerus 2+ Views Left 74582 -SD MORENO CPT code 41710 Reason For Exam (CR Humerus 2+ Views [...] Work Phone: PROGRESSon 04-20-2020 PROGRESS HNO ID: [id number] Author: Radha Yu Service: ? Author Type: Physical Therapist Type: Progress Notes Filed: 04/20/2020 9:16 AM Note Text: 04/20/2020 [facility] PHYSICAL THERAPY DISCONTINUANCE [...] 07/06/19 through 09/05/19 Goals updated on 02/17/2020. [place] in home exercise program. (Met) Patient will [...] to therapy or scheduled additional follow-up appointments. RYAN Aldana [facility] CNTHERAPYon 02-17-2020 CNTHERAPY OT/PT/Speech Visit (PTWS) LABIN ISSA ([id number]) 1955 M Date Time Provider Department 02/17/20 9:30 AM RADHA YU (PT) PTWS Date Time Provider Department Center 02/17/2020 9:30 AM [id number] YU (PT) PTWS [facility] Reason for Visit: PT Progress Note [3226] PT Discharge [752] Reason For Visit History Recorded Primary Visit Diagnosis:S/P AKA (above knee amputation), right (HCC) [Z89.611] Allergies As of Date: 02/17/2020 (Not on File) Date Reviewed: Never Reviewed Progress Notes: Radha Yu, PT 02/17/2020 12:13 PM Signed Episode Visit [...] 07/06/19 through 09/05/19 Goals updated on 02/17/2020. [place] in home exercise program. (Met) Patient will [...] belt utilized during session for safety. Billing: [facility]: Therapeutic Exercise (04853): 1:1 time: 23 minutes (2 units: 23-37 mins) Gait Training (14411): 1:1 time: 15 minutes (1 unit: 8-22 mins) Total time: 38 minutes Radha Yu, PT Radha Yu PT 04/20/2020 9:16 AM Signed 04/20/2020 [facility] PHYSICAL THERAPY DISCONTINUANCE [...] 07/06/19 through 09/05/19 Goals updated on 02/17/2020. [place] in home exercise program. (Met) Patient will [...] appointments. Radha Yu PT Letter Text Normal [facility] PROGRESSon 02-17-2020 PROGRESS HNO ID: [id number] Author: Radha (Pt) Gigi Service: ? Author [...] 07/06/19 through 09/05/19 Goals updated on 02/17/2020. [place] in home exercise program. (Met) Patient will [...] belt utilized during session for safety. Billing: [facility]: Therapeutic Exercise (80207): 1:1 time: 23 minutes (2 units: 23-37 mins) Gait Training (13516): 1:1 time: 15 minutes (1 unit: 8-22 mins) Total time: 38 minutes Radha Yu PT Normal [facility] CNTHERAPYon 01-25-2020 CNTHERAPY OT/PT/Speech Visit (PTWS) ALBIN ISSA ([id number]) 1955 M Date Time Provider Department 01/25/20 3:30 PM RADHA YU (PT) PTWS Date Time Provider Department Center 01/25/2020 3:30 PM [id number] YU (PT) PTWS [facility] Reason for Visit: Physical Therapy [503] Primary Visit Diagnosis:S/P AKA (above knee amputation), right ([facility]) [Z89.611] Allergies As of Date: 01/25/2020 (Not [...] belt utilized during session for safety. Billing: [facility]: Therapeutic Exercise (54122): 1:1 time: 32 minutes (2 units: 23-37 mins) Gait Training (81341): 1:1 time: 18 minutes (1 unit: 8-22 mins) Total time: 50 minutes Radha Yu PT Normal [facility] PROGRESSon 01-25-2020 PROGRESS HNO ID: [id number] Author: Radha (Pt) Gigi Service: ? Author [...] belt utilized during session for safety. Billing: [facility]: Therapeutic Exercise (98750): 1:1 time: 32 minutes (2 units: 23-37 mins) Gait Training (22808): 1:1 time: 18 minutes (1 unit: 8-22 mins) Total time: 50 minutes Radha Yu PT Normal [facility] CNTHERAPYon 01-22-2020 CNTHERAPY OT/PT/Speech Visit (PTWS) ALBIN ISSA ([id number]) 1955 M Date Time Provider Department 01/22/20 1:45 PM RADHA YU (PT) PTWS Date Time Provider Department Center 01/22/2020 1:45 PM [id number] YU (PT) PTWS [facility] Reason for Visit: Physical Therapy [...] for Visit: Pt stating he saw the insulation extruder operator again and was instructed to use 5 [...] assess proper use of assistive device. Billing: [facility]: Therapeutic Exercise (79890): 1:1 time: 28 minutes (2 units: 23-37 mins) Gait Training (26207): 1:1 time: 15 minutes (1 unit: 8-22 mins) Total time: 43 minutes Radha Yu PT Normal [facility] PROGRESSon 01-22-2020 PROGRESS HNO ID: [id number] Author: Radha (Pt) Gigi Service: ? Author [...] for Visit: Pt stating he saw the insulation extruder operator again and was instructed to use 5 [...] assess proper use of assistive device. Billing: [facility]: Therapeutic Exercise ([id number]): 1:1 time: 28 minutes (2 units: 23-37 mins) Gait Training ([id number]): 1:1 time: 15 minutes (1 unit: 8-22 mins) Total time: 43 minutes Radha Yu PT Normal [facility] CNTHERAPYon 01-18-2020 CNTHERAPY OT/PT/Speech Visit (PTWS) ALBIN ISSA ([id number]) 1955 M Date Time Provider Department 01/18/20 3:30 PM RADHA YU (PT) PTWS Date Time Provider Department Center 01/18/2020 3:30 PM [id number] (PT) PTWS [facility] Reason for Visit: Physical Therapy [503] Primary Visit Diagnosis:S/P AKA (above knee amputation), right ([facility]) [Z89.611] Allergies As of Date: 01/18/2020 (Not [...] belt utilized during session for safety. Billing: [facility]: Therapeutic Exercise (12821): 1:1 time: 25 minutes (2 units: 23-37 mins) Gait Training (89035): 1:1 time: 15 minutes (1 unit: 8-22 mins) Total time: 40 minutes Radha Yu PT [facility] PROGRESSon 01-18-2020 PROGRESS HNO ID: [id number] Author: Radha RichmondPtBarbie Yu Service: ? Author Type: Physical Therapist [...] belt utilized during session for safety. Billing: [facility]: Therapeutic Exercise (91891): 1:1 time: 25 minutes (2 units: 23-37 mins) Gait Training (17633): 1:1 time: 15 minutes (1 unit: 8-22 mins) Total time: 40 minutes Radha Lemon, PT [facility] CNTHERAPYon 01-15-2020 CNTHERAPY OT/PT/Speech Visit (PTWS) ALBIN ISSA ([id number]) 1955 M Date Time Provider Department 01/15/20 1:45 PM RADHA YU (PT) PTWS Date Time Provider Department Center 01/15/2020 1:45 PM [id number] YU (PT) PTWS [facility] Reason for Visit: Physical Therapy [503] Primary Visit Diagnosis:S/P AKA (above knee amputation), right ([facility]) [Z89.611] Allergies As of Date: 01/15/2020 (Not [...] assess proper use of assistive device. Billing: [facility]: Therapeutic Exercise (36415): 1:1 time: 27 minutes (2 units: 23-37 mins) Gait Training (15041): 1:1 time: 15 minutes (1 unit: 8-22 mins) Total time: 42 minutes Radha Yu PT [facility] PROGRESSon 01-15-2020 PROGRESS HNO ID: [id number] Author: Radha (Pt) Gigi Service: ? Author [...] assess proper use of assistive device. Billing: [facility]: Therapeutic Exercise (83038): 1:1 time: 27 minutes (2 units: 23-37 mins) Gait Training (50442): 1:1 time: 15 minutes (1 unit: 8-22 mins) Total time: 42 minutes Radha Yu PT [facility] CNTHERAPYon 01-04-2020 CNTHERAPY OT/PT/Speech Visit (PTWS) ALBIN ISSA ([id number]) 1955 M Date Time Provider Department 01/04/20 3:30 PM RADHA YU (PT) PTWS Date Time Provider Department Center 01/04/2020 3:30 PM [id number] YU (PT) PTWS [facility] Reason for Visit: PT Progress [...] 07/06/19 through 09/05/19 Goals updated on 01/04/2020. [place] in home exercise program. (Met) Patient will [...] He states he has an appt with insulation extruder operator this and will discuss with him. Pain: [...] belt utilized during session for safety. Billing: [facility]: Therapeutic Exercise (55666): 1:1 time: 25 minutes (2 units: 23-37 mins) Gait Training (10581): 1:1 time: 15 minutes (1 unit: 8-22 mins) Total time: 40 minutes Radha Yu PT [facility] PROGRESSon 01-04-2020 PROGRESS HNO ID: [id number] Author: Radha (Pt) Gigi Service: ? Author [...] 07/06/19 through 09/05/19 Goals updated on 01/04/2020. [place] in home exercise program. (Met) Patient will [...] He states he has an appt with insulation extruder operator this and will discuss with him. Pain: [...] belt utilized during session for safety. Billing: [facility]: Therapeutic Exercise (68678): 1:1 time: 25 minutes (2 units: 23-37 mins) Gait Training (58097): 1:1 time: 15 minutes (1 unit: 8-22 mins) Total time: 40 minutes Radha Yu PT [facility] CNTHERAPYon 12-30-2019 CNTHERAPY OT/PT/Speech Visit (PTWS) ALBIN ISSA ([id number]) 1955 M Date Time Provider Department 12/30/19 10:15 AM RADHA YU (PT) PTWS Date Time Provider Department Center 12/30/2019 10:15 AM [id number] YU (PT) PTKAIT [facility] Reason for Visit: Physical Therapy [503] Primary Visit Diagnosis:S/P AKA (above knee amputation), right ([facility]) [Z89.611] Allergies As of Date: 12/30/2019 (Not on File) Date Reviewed: Never Reviewed Progress Notes: Radha Yu, PT 12/30/2019 1:42 PM Signed Episode Visit [...] assess proper use of assistive device. Billing: [facility]: Therapeutic Exercise (99955): 1:1 time: 15 minutes (1 unit: 8-22 mins) Gait Training (56779): 1:1 time: 28 minutes (2 units: 23-37 mins) Total time: 43 minutes Radha Yu PT [facility] PROGRESSon 12-30-2019 PROGRESS HNO ID: [id number] Author: Radha (Pt) Gigi Service: ? Author [...] assess proper use of assistive device. Billing: [facility]: Therapeutic Exercise (97299): 1:1 time: 15 minutes (1 unit: 8-22 mins) Gait Training (31736): 1:1 time: 28 minutes (2 units: 23-37 mins) Total time: 43 minutes Radha Yu PT [facility] CNTHERAPYon 12-25-2019 CNTHERAPY OT/PT/Speech Visit (PTWS) ALBIN ISSA ([id number]) 1955 M Date Time Provider Department 12/25/19 2:00 PM ANN MESSINA ([employer]) PTWS Date Time Provider Department Center 12/25/2019 2:00 PM [id number], NANCY (CAR SPOTTER) PTWS [facility] Reason for Visit: Physical Therapy [503] Primary Visit Diagnosis:S/P AKA (above knee amputation), right ([facility]) [Z89.611] Allergies As of Date: 12/25/2019 (Not [...] safety. Cueing for proper step length. Billing: [facility]: Therapeutic Exercise (38310): 1:1 time: 13 minutes (1 unit: 8-22 mins) Gait Training (78703): 1:1 time: 29 minutes (2 units: 23-37 mins) Total time: 42 minutes Ann Messina PT-Eder Sarmiento PT Previous Version [facility] PROGRESSon 12-25-2019 PROGRESS HNO ID: [id number] Author: Fidel (Ryan) Torsten Service: ? Author [...] safety. Cueing for proper step length. Billing: [facility]: Therapeutic Exercise (21631): 1:1 time: 13 minutes (1 unit: 8-22 mins) Gait Training (59398): 1:1 time: 29 minutes (2 units: 23-37 mins) Total time: 42 minutes MOE Puga PT [facility] CNTHERAPYon 12-21-2019 CNTHERAPY OT/PT/Speech Visit (PTWS) ALBIN ISSA ([id number]) 1955 M Date Time Provider Department 12/21/19 2:45 PM ANN MESSINA ([facility]) PTWS Date Time Provider Department Center 12/21/2019 2:45 PM [id number], NANCY (CAR SPOTTER) PTWS [facility] Reason for Visit: Physical Therapy [...] belt utilized during session for safety. Billing: [facility]: Therapeutic Exercise (52988): 1:1 time: 15 minutes (1 unit: 8-22 mins) Gait Training (21422): 1:1 time: 30 minutes (2 units: 23-37 mins) Total time: 45 minutes MOE Puga PT Previous Version [facility] PROGRESSon 12-21-2019 PROGRESS HNO ID: [id number] Author: Radha (Pt) Gigi Service: ? Author [...] belt utilized during session for safety. Billing: [facility]: Therapeutic Exercise (49334): 1:1 time: 15 minutes (1 unit: 8-22 mins) Gait Training (95789): 1:1 time: 30 minutes (2 units: 23-37 mins) Total time: 45 minutes Ann Messina PT-Eder Yu PT [facility] CNTHERAPYon 12-18-2019 CNTHERAPY OT/PT/Speech Visit (PTWS) ALBIN ISSA ([id number]) 1955 M Date Time Provider Department 12/18/19 1:15 PM ANN MESSINA ([employer]TER) PTWS Date Time Provider Department Center 12/18/2019 1:15 PM [id number], NANCY (CAR SPOTTER) PTWS [facility] Reason for Visit: Physical Therapy [503] Primary Visit Diagnosis:S/P AKA (above knee amputation), right ([facility]) [Z89.611] Allergies As of Date: 12/18/2019 (Not on File) Date Reviewed: Never Reviewed Progress Notes: Anshu Lenin, PT 12/21/2019 8:32 AM Signed Episode Visit Count: 23 Therapist That Will Oversee The Plan Of Care: Kanej carlosRadha Start of Care Date: 07/06/19 Onset [...] cues for upright posture during gait. Billing: [facility]: Therapeutic Exercise (26553): 1:1 time: 15 minutes (1 unit: 8-22 mins) Gait Training (06750): 1:1 time: 25 minutes (2 units: 23-37 mins) Total time: 40 minutes Ann Messina PT-Eder Phelps PT Previous Version [facility] PROGRESSon 12-18-2019 PROGRESS HNO ID: [id number] Author: Anshu (Pt) Lenin Service: ? Author Type: Physical Therapist Type: Progress Notes Filed: 12/21/2019 8:32 AM Note Text: Episode Visit Count: 23 Therapist That Will Oversee The Plan Of Care: Kanej carlos Radha Start of Care Date: 07/06/19 [...] cues for upright posture during gait. Billing: [facility]: Therapeutic Exercise (85335): 1:1 time: 15 minutes (1 unit: 8-22 mins) Gait Training (32342): 1:1 time: 25 minutes (2 units: 23-37 mins) Total time: 40 minutes Ann Messina PTRYAN Maloney [facility] CNTHERAPYon 12-07-2019 CNTHERAPY OT/PT/Speech Visit (PTWS) ALBIN ISSA ([id number]) 1955 M Date Time Provider Department 12/07/19 10:30 AM RADHA YU (PT) PTWS Date Time Provider Department Center 12/07/2019 10:30 AM [id number] YU (PT) PTWS [facility] Reason for Visit: PT Progress [...] 07/06/19 through 09/05/19 Goals updated on 10/16/2019. [place] in home exercise program. (Met) Patient will [...] ambulating with 2 LBQCs. He notes the insulation extruder operator took about 3/4 inches off of it [...] half of respondents had a worse score. -PAC score= 51.67 OBJECTIVE MEASURES WITH LEVEL OF [...] R LE above the knee prosthesis). Billing: [facility]: Therapeutic Exercise (58448): 1:1 time: 30 minutes (2 units: 23-37 mins) Gait Training (41572): 1:1 time: 10 minutes (1 unit: 8-22 mins) Total time: 40 minutes Radha Yu PT Previous Version Letter Text [facility] PROGRESSon 12-07-2019 PROGRESS HNO ID: [id number] Author: Radha (Pt) Gigi Service: ? Author [...] 07/06/19 through 09/05/19 Goals updated on 10/16/2019. [place] in home exercise program. (Met) Patient will [...] ambulating with 2 LBQCs. He notes the insulation extruder operator took about 3/4 inches off of it [...] R LE above the knee prosthesis). Billing: [facility]: Therapeutic Exercise (50065): 1:1 time: 30 minutes (2 units: 23-37 mins) Gait Training (54084): 1:1 time: 10 minutes (1 unit: 8-22 mins) Total time: 40 minutes Radha Yu PT [facility] CNTHERAPYon 10-16-2019 CNTHERAPY OT/PT/Speech Visit (PTWS) ALBIN ISSA ([id number]) 1955 M Date Time Provider Department 10/16/19 2:30 PM RADHA YU (PT) PTWS Date Time Provider Department Center 10/16/2019 2:30 PM [id number] YU (PT) PTWS [facility] Reason for Visit: PT Progress [...] 07/06/19 through 09/05/19 Goals updated on 09/11/2019. [place] in home exercise program. (Met) Patient will [...] as noted. Objective measurements and reassessment. Billing: [facility]: Therapeutic Exercise (96031): 1:1 time: 40 minutes (3 units: 38-52 mins) Total time: 40 minutes Radha Yu PT [facility] PROGRESSon 10-16-2019 PROGRESS HNO ID: [id number] Author: Radha (Pt) Gigi Service: ? Author [...] 07/06/19 through 09/05/19 Goals updated on 09/11/2019. [place] in home exercise program. (Met) Patient will [...] as noted. Objective measurements and reassessment. Billing: [facility]: Therapeutic Exercise (16758): 1:1 time: 40 minutes (3 units: 38-52 mins) Total time: 40 minutes Radha Yu PT [facility] CNTHERAPYon 10-02-2019 CNTHERAPY OT/PT/Speech Visit (PTWS) ALBIN ISSA ([id number]) 1955 M Date Time Provider Department 10/02/19 8:00 AM RADHA YU (PT) PTWS Date Time Provider Department Center 10/02/2019 8:00 AM [id number] YU (PT) PTWS [facility] Reason for Visit: Physical Therapy [...] assess proper use of assistive device. Billing: [facility]: Therapeutic Exercise (35331): 1:1 time: 32 minutes (2 units: 23-37 mins) Gait Training (99036): 1:1 time: 8 minutes (1 unit: 8-22 mins) Total time: 40 minutes Radha Yu PT [facility] PROGRESSon 10-02-2019 PROGRESS HNO ID: [id number] Author: Radha (Pt) Gigi Service: ? Author [...] assess proper use of assistive device. Billing: [facility]: Therapeutic Exercise (25209): 1:1 time: 32 minutes (2 units: 23-37 mins) Gait Training (19331): 1:1 time: 8 minutes (1 unit: 8-22 mins) Total time: 40 minutes Radha Yu PT [facility] CNTHERAPYon 09-23-2019 CNTHERAPY OT/PT/Speech Visit (PTWS) ALBIN ISSA ([id number]) 1955 M Date Time Provider Department 09/23/19 2:15 PM ANN MESSINA ([employer]) PTWS Date Time Provider Department Center 09/23/2019 2:15 PM [id number], NANCY (CAR SPOTTER) PTWS [facility] Reason for Visit: Physical Therapy [503] Primary Visit Diagnosis:S/P AKA (above knee amputation), right ([facility]) [Z89.611] Allergies As of Date: 09/23/2019 (Not [...] 1: Standing hip abductions left 3# 1x23 [id number] and right 3# 2x40 2: Standing hip [...] verbal and visual cuing. Billing:KX modifier applied [facility]: Therapeutic Exercise (39105): 1:1 time: 40 minutes (3 units: 38-52 mins) Total time: 40 minutes MOE Puga PT Previous Version [facility] PROGRESSon 09-23-2019 PROGRESS HNO ID: [id number] Author: Radha (Pt) Gigi Service: ? Author [...] 1: Standing hip abductions left 3# 1x23 [id number] and right 3# 2x40 2: Standing hip [...] verbal and visual cuing. Billing:KX modifier applied [facility]: Therapeutic Exercise (91117): 1:1 time: 40 minutes (3 units: 38-52 mins) Total time: 40 minutes Ann Messina PT-RYAN Herrera [facility] CNTHERAPYon 09-11-2019 CNTHERAPY OT/PT/Speech Visit (PTWS) ALBIN ISSA ([id number]) 1955 M Date Time Provider Department 09/11/19 8:00 AM RADHA YU (PT) PTWS Date Time Provider Department Center 09/11/2019 8:00 AM [id number] YU (PT) PTWS [facility] Reason for Visit: PT Progress [...] 07/06/19 through 09/05/19 Goals updated on 09/11/2019. [place] in home exercise program. (Met) Patient will [...] assess proper use of assistive device. Billing: [facility]: Therapeutic Exercise (06592): 1:1 time: 27 minutes (2 units: 23-37 mins) Gait Training (67487): 1:1 time: 15 minutes (1 unit: 8-22 mins) Total time: 42 minutes Radha uY PT Letter Text [facility] PROGRESSon 10-11-2019 PROGRESS HNO ID: [id number] Author: Radha (Pt) Gigi Service: ? Author [...] 07/06/19 through 09/05/19 Goals updated on 09/11/2019. [place] in home exercise program. (Met) Patient will [...] assess proper use of assistive device. Billing: [facility]: Therapeutic Exercise (42629): 1:1 time: 27 minutes (2 units: 23-37 mins) Gait Training (36792): 1:1 time: 15 minutes (1 unit: 8-22 mins) Total time: 42 minutes Radha Yu PT [facility] CNTHERAPYon 09-04-2019 CNTHERAPY OT/PT/Speech Visit (PTWS) ALBIN ISSA ([id number]) 1955 M Date Time Provider Department 09/04/19 2:00 PM ANN MESSINA ([employer]) PTWS Date Time Provider Department Center 09/04/2019 2:00 PM [id number], NANCY (CAR SPOTTER) PTWS [facility] Reason for Visit: Physical Therapy [...] belt utilized during session for safety. Billing: [facility]: Therapeutic Exercise (81816): 1:1 time: 23 minutes (2 units: 23-37 mins) Gait Training (53737): 1:1 time: 20 minutes (1 unit: 8-22 mins) Total time: 43 minutes Ann Messina PT-Eder Sarmiento PT Previous Version [facility] PROGRESSon 09-04-2019 PROGRESS HNO ID: [id number] Author: Fidel (Ryan) Torsten Service: ? Author [...] belt utilized during session for safety. Billing: [facility]: Therapeutic Exercise (62443): 1:1 time: 23 minutes (2 units: 23-37 mins) Gait Training (66276): 1:1 time: 20 minutes (1 unit: 8-22 mins) Total time: 43 minutes Ann Messina PTRichard Sarmiento PT [facility] CNTHERAPYon 08-31-2019 CNTHERAPY OT/PT/Speech Visit (PTWS) ALBIN ISSA ([id number]) 1955 M Date Time Provider Department 08/31/19 1:15 PM ANN MESSINA ([employer]) PTWS Date Time Provider Department Center 08/31/2019 1:15 PM [id number], NANCY (CAR SPOTTER) PTWS [facility] Reason for Visit: Physical Therapy [...] above. Gait belt used for safety. Billing: [facility]: Therapeutic Exercise (02163): 1:1 time: 28 minutes (2 units: 23-37 mins) Gait Training (16435): 1:1 time: 17 minutes (1 unit: 8-22 mins) Total time: 45 minutes MOE Puga PT Previous Version [facility] PROGRESSon 08-31-2019 PROGRESS HNO ID: [id number] Author: Radha (Pt) Gigi Service: ? Author [...] above. Gait belt used for safety. Billing: [facility]: Therapeutic Exercise (14470): 1:1 time: 28 minutes (2 units: 23-37 mins) Gait Training (49352): 1:1 time: 17 minutes (1 unit: 8-22 mins) Total time: 45 minutes Ann Messina PT-RYAN Herrera [facility] CNTHERAPYon 08-28-2019 CNTHERAPY OT/PT/Speech Visit (PTWS) ALBIN ISSA ([id number]) 1955 M Date Time Provider Department 08/28/19 1:45 PM RADHA YU (PT) PTWS Date Time Provider Department Center 08/28/2019 1:45 PM [id number] YU (PT) PTWS [facility] Reason for Visit: Physical Therapy [503] Primary Visit Diagnosis:S/P AKA (above knee amputation), right ([facility]) [Z89.611] Allergies As of Date: 08/28/2019 (Not on File) Date Reviewed: Never Reviewed Progress Notes: Radha Yu, PT 08/28/2019 3:56 PM Signed Episode Visit [...] for Visit: Pt states he saw the insulation extruder operator yesterday and they are discussing starting the [...] assess proper use of orthotic device; Billing: [facility]: Therapeutic Exercise (52135): 1:1 time: 20 minutes (1 unit: 8-22 mins) Gait Training (14111): 1:1 time: 17 minutes (1 unit: 8-22 mins) Total time: 37 minutes (Pt was late d/t garage door breaking.) Radha Yu PT [facility] PROGRESSon 08-28-2019 PROGRESS HNO ID: [id number] Author: Radha (Pt) Gigi Service: ? Author [...] for Visit: Pt states he saw the insulation extruder operator yesterday and they are discussing starting the [...] assess proper use of orthotic device; Billing: [facility]: Therapeutic Exercise (06448): 1:1 time: 20 minutes (1 unit: 8-22 mins) Gait Training (91709): 1:1 time: 17 minutes (1 unit: 8-22 mins) Total time: 37 minutes (Pt was late d/t garage door breaking.) Radha Yu, PT [facility] CNTHERAPYon 08-26-2019 CNTHERAPY OT/PT/Speech Visit (PTWS) ALBIN ISSA ([id number]) 1955 M Date Time Provider Department 08/26/19 2:15 PM ANN MESSINA ([employer]) PTWS Date Time Provider Department Center 08/26/2019 2:15 PM [id number], NANCY (CAR SPOTTER) PTWS [facility] Reason for Visit: Physical Therapy [503] Primary Visit Diagnosis:S/P AKA (above knee amputation), right ([facility]) [Z89.611] Allergies As of Date: 08/26/2019 (Not on File) Date Reviewed: Never Reviewed Progress Notes: Radha Yu, PT 08/26/2019 5:33 PM Signed Episode Visit [...] belt utilized during session for safety. Billing: [facility]: Therapeutic Exercise (02753): 1:1 time: 15 minutes (1 unit: 8-22 mins) Gait Training (67255): 1:1 time: 25 minutes (2 units: 23-37 mins) Total time: 40 minutes Ann Messina PT-Eder Yu, RYAN Previous Version [facility] PROGRESSon 08-26-2019 PROGRESS HNO ID: [id number] Author: Radha (Pt) Gigi Service: ? Author [...] NOTE ASSESSMENT: Albin [place] demonstrated improvements in gait on level with [...] belt utilized during session for safety. Billing: [facility]: Therapeutic Exercise (39502): 1:1 time: 15 minutes (1 unit: 8-22 mins) Gait Training (31631): 1:1 time: 25 minutes (2 units: 23-37 mins) Total time: 40 minutes MOE Puga PT [facility] CNTHERAPYon 08-24-2019 CNTHERAPY OT/PT/Speech Visit (PTWS) ALBIN ISSA ([id number]) 1955 M Date Time Provider Department 08/24/19 2:00 PM ANN MESSINA ([employer]TER) PTWS Date Time Provider Department Center 08/24/2019 2:00 PM [id number], NANCY (CAR SPOTTER) PTWS [facility] Reason for Visit: Physical Therapy [503] Primary Visit Diagnosis:S/P AKA (above knee amputation), right ([facility]) [Z89.611] Allergies As of Date: 08/24/2019 (Not [...] belt utilized during session for safety. Billing: [facility]: Therapeutic Exercise (04597): 1:1 time: 15 minutes (1 unit: 8-22 mins) Gait Training (87188): 1:1 time: 30 minutes (2 units: 23-37 mins) Total time: 45 minutes Ann Messina, PTRichard Yu, RYAN Previous Version [facility] PROGRESSon 08-24-2019 PROGRESS HNO ID: [id number] Author: Radha (Pt) Gigi Service: ? Author [...] belt utilized during session for safety. Billing: [facility]: Therapeutic Exercise (13455): 1:1 time: 15 minutes (1 unit: 8-22 mins) Gait Training (01423): 1:1 time: 30 minutes (2 units: 23-37 mins) Total time: 45 minutes Ann Messina PTRYAN Ledesma [facility] CNTHERAPYon 08-19-2019 CNTHERAPY OT/PT/Speech Visit (PTWS) ALBIN ISSA ([id number]) 1955 M Date Time Provider Department 08/19/19 11:00 AM RADHA YU (PT) PTWS Date Time Provider Department Center 08/19/2019 11:00 AM [id number] YU (PT) PTWS [facility] Reason for Visit: Physical Therapy [503] Primary Visit Diagnosis:S/P AKA (above knee amputation), right ([facility]) [Z89.611] Other Visit Diagnosis:Liposarcoma of thigh, 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 Billing: [facility]: Therapeutic Exercise (20738): 1:1 time: 25 minutes (2 units: 23-37 mins) Gait Training (15158): 1:1 time: 20 minutes (1 unit: 8-22 mins) Total time: 45 minutes Radha Yu PT [facility] PROGRESSon 08-19-2019 PROGRESS HNO ID: [id number] Author: Radha (Pt) Gigi Service: ? Author Type: Physical Therapist Type: Progress Notes Filed: 08/19/2019 12:50 PM Note Text: Episode Visit Count: 12 Therapist That Will Oversee The Plan Of Care: KaneMimi adkinsissa Start of Care Date: 07/06/19 Onset [...] assess proper use of assistive device. Billing: [facility]: Therapeutic Exercise (44195): 1:1 time: 25 minutes (2 units: 23-37 mins) Gait Training (53535): 1:1 time: 20 minutes (1 unit: 8-22 mins) Total time: 45 minutes RYAN Aldana [facility] CNTHERAPYon 08-12-2019 CNTHERAPY OT/PT/Speech Visit (PTWS) ALBIN ISSA ([id number]) 1955 M Date Time Provider Department 08/12/19 1:30 PM RADHA YU (PT) PTWS Date Time Provider Department Center 08/12/2019 1:30 PM [id number] YU (PT) PTKAIT [facility] Reason for Visit: Physical Therapy [503] Primary Visit Diagnosis:S/P AKA (above knee amputation), right ([facility]) [Z89.611] Other Visit Diagnosis:Liposarcoma of thigh, 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 Author [...] (Not during activities in parallel bars.) Billing: [facility]: Therapeutic Exercise (44145): 1:1 time: 25 minutes (2 units: 23-37 mins) Gait Training (32249): 1:1 time: 20 minutes (1 unit: 8-22 mins) Total time: 45 minutes Radha Yu PT [facility] CNTHERAPYon 08-10-2019 CNTHERAPY OT/PT/Speech Visit (PTWS) ALBIN ISSA ([id number]) 1955 M Date Time Provider Department 08/10/19 12:45 PM RADHA UY (PT) PTWS Date Time Provider Department Center 08/10/2019 12:45 PM [id number] YU (PT) PTWS [facility] Reason for Visit: Physical Therapy [503] Primary Visit Diagnosis:S/P AKA (above knee amputation), right ([facility]) [Z89.611] Other Visit Diagnosis:Liposarcoma of thigh, 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 Billing: [facility]: Therapeutic Exercise (14816): 1:1 time: 25 minutes (2 units: 23-37 mins) Gait Training (66921): 1:1 time: 20 minutes (1 unit: 8-22 mins) Total time: 45 minutes Radha Yu PT [facility] PROGRESSon 08-10-2019 PROGRESS HNO ID: [id number] Author: Radha (Pt) Gigi Service: ? Author [...] his daughter is taking him to the [facility] today, but he is planning on using [...] belt utilized during session for safety. Billing: [facility]: Therapeutic Exercise (08274): 1:1 time: 25 minutes (2 units: 23-37 mins) Gait Training (50172): 1:1 time: 20 minutes (1 unit: 8-22 mins) Total time: 45 minutes Radha Yu PT [facility] CNTHERAPYon 08-07-2019 CNTHERAPY OT/PT/Speech Visit (PTWS) ALBIN ISSA ([id number]) 1955 M Date Time Provider Department 08/07/19 11:00 AM RADHA YU (PT) PTWS Date Time Provider Department Center 08/07/2019 11:00 AM [id number], RADHA (PT) PTWS [facility] Reason for Visit: Physical Therapy [503] Primary Visit Diagnosis:S/P AKA (above knee amputation), right (HCC) [Z89.611] Allergies As of Date: 08/07/2019 (Not on File) Date Reviewed: Never Reviewed Progress Notes: Radha Kanej carlos, PT 08/07/2019 12:43 PM Signed Episode Visit Count: 9 Therapist That Will Oversee The Plan Of Care: KaneMimi adkinsissa Start of Care Date: 07/06/19 Onset [...] using LB quad cane and railing. Billing: [facility]: Therapeutic Exercise (99251): 1:1 time: 25 minutes (2 units: 23-37 mins) Gait Training (15813): 1:1 time: 20 minutes (1 unit: 8-22 mins) Total time: 45 minutes Radha Yu PT [facility] PROGRESSon 08-07-2019 PROGRESS HNO ID: [id number] Author: Radha (Pt) Gigi Service: ? Author [...] using LB quad cane and railing. Billing: [facility]: Therapeutic Exercise (42671): 1:1 time: 25 minutes (2 units: 23-37 mins) Gait Training (31466): 1:1 time: 20 minutes (1 unit: 8-22 mins) Total time: 45 minutes Radha Yu PT [facility] CNTHERAPYon 08-05-2019 CNTHERAPY OT/PT/Speech Visit (PTWS) ALBIN ISSA ([id number]) 1955 M Date Time Provider Department 08/05/19 9:30 AM RADHA YU (PT) PTWS Date Time Provider Department Center 08/05/2019 9:30 AM [id number] YU (PT) PTWS [facility] Reason for Visit: Physical Therapy [503] Primary Visit Diagnosis:S/P AKA (above knee amputation), right ([facility]) [Z89.611] Other Visit Diagnosis:Liposarcoma of thigh, 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 [place] in home exercise program. (Met) Patient will [...] surface and 180 deg turns negotiation. Billing: [facility]: Therapeutic Exercise (82873): 1:1 time: 18 minutes (1 unit: 8-22 mins) Gait Training (18391): 1:1 time: 25 minutes (2 units: 23-37 mins) Total time: 43 minutes Radha Yu PT [facility] PROGRESSon 08-05-2019 PROGRESS HNO ID: [id number] Author: Radha (Pt) Gigi Service: ? Author [...] 07/06/19 through 09/05/19 Goals updated on 08/05/2019. [place] in home exercise program. (Met) Patient will [...] surface and 180 deg turns negotiation. Billing: [facility]: Therapeutic Exercise (22702): 1:1 time: 18 minutes (1 unit: 8-22 mins) Gait Training (10004): 1:1 time: 25 minutes (2 units: 23-37 mins) Total time: 43 minutes Radha Yu PT [facility] CNTHERAPYon 07-27-2019 CNTHERAPY OT/PT/Speech Visit (PTWS) ALBIN ISSA ([id number]) 1955 M Date Time Provider Department 07/27/19 8:30 AM RADHA YU (PT) PTWS Date Time Provider Department Center 07/27/2019 8:30 AM [id number] YU (PT) PTWS [facility] Reason for Visit: Physical Therapy [503] Primary Visit Diagnosis:S/P AKA (above knee amputation), right ([facility]) [Z89.611] Other Visit Diagnosis:Liposarcoma of thigh, 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 Billing: [facility]: Therapeutic Exercise (11267): 1:1 time: 25 minutes (2 units: 23-37 mins) Gait Training (31884): 1:1 time: 20 minutes (1 unit: 8-22 mins) Total time: 45 minutes Radha Yu PT [facility] ANTONYon 07-27-2019 PROGRESS HNO ID: [id number] Author: Radha (Pt) Gigi Service: ? Author [...] level surfaces with 2 canes negotiation. Billing: [facility]: Therapeutic Exercise (38195): 1:1 time: 25 minutes (2 units: 23-37 mins) Gait Training (01872): 1:1 time: 20 minutes (1 unit: 8-22 mins) Total time: 45 minutes Radha Yu PT [facility] CNTHERAPYon 07-22-2019 CNTHERAPY OT/PT/Speech Visit (PTWS) ALBIN ISSA ([id number]) 1955 M Date Time Provider Department 07/22/19 1:30 PM RADHA YU (PT) PTWS Date Time Provider Department Center 07/22/2019 1:30 PM [id number] YU (PT) PTWS [facility] Reason for Visit: Physical Therapy [503] Primary Visit Diagnosis:S/P AKA (above knee amputation), right (HCC) [Z89.611] Other Visit Diagnosis:Liposarcoma of thigh, right (HCC) [C49.21] Allergies As of Date: 07/22/2019 (Not on File) Date Reviewed: Never Reviewed Progress Notes: Radha Yu, PT 07/22/2019 2:36 PM Signed Episode Visit [...] session. He has another f/u with the insulation extruder operator tomorrow. Pain: Pain Pain Level: 0 Post [...] identified in the objective section above. Billing: [facility]: Therapeutic Exercise (90344): 1:1 time: 25 minutes (2 units: 23-37 mins) Gait Training (01632): 1:1 time: 20 minutes (1 unit: 8-22 mins) Total time: 45 minutes Radha Yu PT [facility] PROGRESSon 07-22-2019 PROGRESS HNO ID: [id number] Author: Radha (Pt) Gigi Service: ? Author [...] session. He has another f/u with the insulation extruder operator tomorrow. Pain: Pain Pain Level: 0 Post [...] identified in the objective section above. Billing: [facility]: Therapeutic Exercise (70687): 1:1 time: 25 minutes (2 units: 23-37 mins) Gait Training (64899): 1:1 time: 20 minutes (1 unit: 8-22 mins) Total time: 45 minutes Radha Yu PT [facility] CNTHERAPYon 07-20-2019 CNTHERAPY OT/PT/Speech Visit (PTWS) ALBIN ISSA ([id number]) 1955 M Date Time Provider Department 07/20/19 8:30 AM RADHA YU (PT) PTWS Date Time Provider Department Center 07/20/2019 8:30 AM [id number] YU (PT) PTWS [facility] Reason for Visit: Physical Therapy [503] Primary Visit Diagnosis:S/P AKA (above knee amputation), right (HCC) [Z89.611] Other Visit Diagnosis:Liposarcoma of thigh, right (HCC) [C49.21] Allergies As of Date: 07/20/2019 (Not [...] identified in the objective section above. Billing: [facility]: Therapeutic Exercise (29064): 1:1 time: 25 minutes (2 units: 23-37 mins) Gait Training (84636): 1:1 time: 20 minutes (1 unit: 8-22 mins) Total time: 45 minutes Rahda RYAN Yu [facility] PROGRESSon 07-20-2019 PROGRESS HNO ID: [id number] Author: Radha (Pt) Gigi Service: ? Author [...] identified in the objective section above. Billing: [facility]: Therapeutic Exercise (73273): 1:1 time: 25 minutes (2 units: 23-37 mins) Gait Training (04321): 1:1 time: 20 minutes (1 unit: 8-22 mins) Total time: 45 minutes Radha Yu PT [facility] CNTHERAPYon 07-17-2019 CNTHERAPY OT/PT/Speech Visit (PTWS) ALBIN ISSA ([id number]) 1955 M Date Time Provider Department 07/17/19 3:15 PM RADHA YU (PT) PTWS Date Time Provider Department Center 07/17/2019 3:15 PM [id number] YU (PT) PTWS [facility] Reason for Visit: Physical Therapy [503] Primary Visit Diagnosis:S/P AKA (above knee amputation), right (HCC) [Z89.611] Other Visit Diagnosis:Liposarcoma of thigh, right (HCC) [C49.21] Allergies As of Date: 07/17/2019 (Not [...] program was facilitated with verbal cueing. Billing: [facility]: Therapeutic Exercise (33525): 1:1 time: 20 minutes (1 unit: 8-22 mins) Gait Training (23347): 1:1 time: 25 minutes (2 units: 23-37 mins) Total time: 45 minutes Radha Yu PT [facility] PROGRESSon 07-17-2019 PROGRESS HNO ID: [id number] Author: Radha (Pt) Gigi Service: ? Author [...] program was facilitated with verbal cueing. Billing: [facility]: Therapeutic Exercise (93617): 1:1 time: 20 minutes (1 unit: 8-22 mins) Gait Training (74871): 1:1 time: 25 minutes (2 units: 23-37 mins) Total time: 45 minutes Radha Yu PT [facility] CNTHERAPYon 07-13-2019 CNTHERAPY OT/PT/Speech Visit (PTWS) ALBIN ISSA ([id number]) 1955 M Date Time Provider Department 07/13/19 9:30 AM RADHA YU (PT) PTWS Date Time Provider Department Center 07/13/2019 9:30 AM [id number] YU (PT) PTWS [facility] Reason for Visit: Physical Therapy [503] Primary Visit Diagnosis:S/P AKA (above knee amputation), right ([facility]) [Z89.611] Other Visit Diagnosis:Liposarcoma of thigh, 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 He presents today [facility] Pain: Pain Pain Level: 0 [...] the proper sequence for stair negotiation. Billing: [facility]: Therapeutic Exercise (81599): 1:1 time: 20 minutes (1 unit: 8-22 mins) Gait Training (28245): 1:1 time: 25 minutes (2 units: 23-37 mins) Total time: 45 minutes Radha Yu PT [facility] PROGRESSon 07-13-2019 PROGRESS HNO ID: [id number] Author: Radha (Pt) Gigi Service: ? Author [...] for Visit: Pt states he saw the insulation extruder operator and he adjusted his prosthesis and is now fitting very comfortably when weight bearing. He presents today amb[facility] Pain: Pain Pain Level: 0 [...] the proper sequence for stair negotiation. Billing: [facility]: Therapeutic Exercise (60659): 1:1 time: 20 minutes (1 unit: 8-22 mins) Gait Training (15457): 1:1 time: 25 minutes (2 units: 23-37 mins) Total time: 45 minutes Radha Yu PT [facility] CNTHERAPYon 07-08-2019 CNTHERAPY OT/PT/Speech Visit (PTWS) LUIS MANUELALBIN CARR ([id number]) 1955 M Date Time Provider Department 07/08/19 3:15 PM RADHA YU (PT) PTWS Date Time Provider Department Center 07/08/2019 3:15 PM [id number] YU (PT) PTWS [facility] Reason for Visit: Physical Therapy [503] Primary Visit Diagnosis:S/P AKA (above knee amputation), right ([facility]) [Z89.611] Other Visit Diagnosis:Liposarcoma of thigh, 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 [...] assess proper use of orthotic device. Billing: [facility]: Therapeutic Exercise (93375): 1:1 time: 15 minutes (1 unit: 8-22 mins) Gait Training (75584): 1:1 time: 25 minutes (2 units: 23-37 mins) Total time: 40 minutes Radha Yu PT [facility] PROGRESSon 07-08-2019 PROGRESS HNO ID: [id number] Author: Radha (Pt) Gigi Service: ? Author Type: Physical Therapist Type: Progress Notes Filed: 07/08/2019 4:50 PM Note Text: Episode Visit Count: 2 Therapist That Will Oversee The Plan Of Care: Kanej carlosRadha Start of Care Date: 07/06/19 Onset [...] assess proper use of orthotic device. Billing: [facility]: Therapeutic Exercise (99749): 1:1 time: 15 minutes (1 unit: 8-22 mins) Gait Training (21788): 1:1 time: 25 minutes (2 units: 23-37 mins) Total time: 40 minutes Radha Yu PT [facility] CNTHERAPYon 07-06-2019 CNTHERAPY OT/PT/Speech Visit (PTWS) ALBIN ISSA ([id number]) 1955 M Date Time Provider Department 07/06/19 5:00 PM RADHA YU (PT) PTWS Date Time Provider Department Center 07/06/2019 5:00 PM [id number] YU (PT) PTWS [facility] Reason for Visit: PT Eval [747] Primary Visit Diagnosis:S/P AKA (above knee amputation), right ([facility]) [Z89.611] Other Visit Diagnosis:Liposarcoma of thigh, [...] of Care: created on 07/06/19 through 09/05/19 [place] in home exercise program. Patient will increase [...] AKA 01/26/19. He has been wearng the motion graphics designer garment and ambulating independently with front wheeled [...] in weight bearing. He has f/u with [employer] 07/16/19. When not wearing his prosthetic, he is wearing the motion graphics designer on his stump. He describes a ramp [...] *Pt was advised to continue to wear motion graphics designer when not using prosthesis. He is to wear the prosthesis no more than 4 hours a day and less than that if wearing consecutive days. he is to discontinue use of prosthesis if develops any pressure points, skin redness or painful irritation on R LE. Pt was also enocuraged to keep his insulation extruder operator notified of any skin irritations, rubbing or [...] orthotic device; R LE AKA prosthesis. Billing: [facility]: Evaluation - Low Complexity (29814) Gait Training (20873): 1:1 time: 20 minutes (1 unit: 8-22 mins) Total time: 45 minutes Radha Yu PT Previous Version Radha Yu PT 07/06/2019 7:12 PM Signed Addended by: RADHA YU PT on: 07/06/2019 07:12 PM Modules accepted: Orders Letter Text [facility] PROGRESSon 07-06-2019 PROGRESS HNO ID: [id number] Author: Radha (Pt) Gigi Service: ? Author [...] of Care: created on 07/06/19 through 09/05/19 [place] in home exercise program. Patient will increase [...] AKA 01/26/19. He has been wearng the motion graphics designer garment and ambulating independently with front wheeled [...] in weight bearing. He has f/u with [employer] 07/16/19. When not wearing his prosthetic, he is wearing the motion graphics designer on his stump. He describes a ramp [...] *Pt was advised to continue to wear motion graphics designer when not using prosthesis. He is to wear the prosthesis no more than 4 hours a day and less than that if wearing consecutive days. he is to discontinue use of prosthesis if develops any pressure points, skin redness or painful irritation on R LE. Pt was also enocuraged to keep his insulation extruder operator notified of any skin irritations, rubbing or [...] orthotic device; R LE AKA prosthesis. Billing: [facility]: Evaluation - Low Complexity (11296) Gait Training (96985): 1:1 time: 20 minutes (1 unit: 8-22 mins) Total time: 45 minutes Radha Yu PT [facility] Office Visit: evaluation les ions right leg - surgery 05/28/17on 07-03-2017 Alcoholism counseling (procedure) no Invalid Interpretation Code [facility] Work Phone: Dietary management education, guidance, and counseling (procedure) yes Invalid Interpretation Code [facility] Work Phone: [phone] Documentation of current medications (procedure) Done Invalid Interpretation Code [facility] Work Phone: [phone] Fall risk assessment No Invalid Interpretation Code [facility] Work Phone: [phone] Tobacco smoking status Current Invalid Interpretation Code [facility] Work Phone: [phone] Tobacco use status [facility] Former smoker Invalid Interpretation Code [facility] Work Phone: [phone] Office Visit: gallstones and abdominal painon 06-19-2017 Tobacco smoking status Current Invalid Interpretation Code [facility] Work Phone: Tobacco use status [facility] Former smoker Invalid Interpretation Code [facility] Work Phone: Office Visit: evaluation les ions right legon 05-15-2017 Tobacco smoking status Current Invalid Interpretation Code [facility] Work Phone: Tobacco use status [facility] Former smoker Invalid Interpretation Code [facility] Work Phone: Office Visiton 12-14-2016 Tobacco smoking status Current Invalid Interpretation Code [facility] Work Phone: Tobacco use status [facility] Former smoker Invalid Interpretation Code [facility] Work Phone: Clinical Lists Update: 10-29-2016 Cholesterol [Mass/Vol] 123 mg/dL Invalid Interpretation Code [facility] Work Phone: Cholesterol in HDL [Mass/Vol] 40 mg/dL Invalid Interpretation Code [facility] Work Phone: Cholesterol in LDL [Mass/Vol] 57 mg/dL Invalid Interpretation Code [facility] Work Phone: Triglyceride [Mass/Vol] 132 mg/dL Invalid Interpretation Code [facility] Work Phone: Clinical Lists Update: 05-28-2016 Left ventricular Ejection fraction 35 % Invalid Interpretation Code [facility] Work Phone: Lab Report: CBC W/Diff, Auto matedon 01-17-2016 Absolute Neut 3.0 X10 3/UL Invalid Interpretation Code 2.0-7.7 [facility] Work Phone: Basophils/100 WBC (Bld) 0.6 % Invalid Interpretation Code 0-1 [facility] Work Phone: Basophils/100 WBC Auto [...] (RBC) 13.4 % Invalid Interpretation Code 11.6-14.6 [facility] Work Phone: Erythrocytes (RBC) 4.01 10*6/uL Low 4.6-6.[address] [facility] Work Phone: Hematocrit (Bld) [Volume fraction] 37.0 % Low 40-54 [facility] Work Phone: Hematocrit (HCT) 37.0 % Low 40-54 [facility] Work Phone: Hemoglobin (Bld) [Mass/Vol] 12.3 g/dL Low 13.0-16.5 [facility] Work Phone: Immature granulocytes/100 WBC (Bld) 0.800 % Invalid Interpretation Code 0.0-0.9 [facility] Work Phone: Lymphocytes 2.57 X10 3/UL Invalid Interpretation Code 0.83-4.51 [facility] Work Phone: Lymphocytes (Bld) [#/Vol] 2.57 X10 3/UL Invalid Interpretation Code 0.83-4.51 [facility] Work Phone: Lymphocytes/100 leukocytes 41.1 % High 19-41 [facility] Work Phone: [phone] Lymphocytes/100 WBC (Bld) 41.1 % High 19-41 [facility] Work Phone: MCH 30.7 pg Invalid Interpretation Code 27.0-32.0 [facility] Work Phone: [phone] MCH (RBC) [Entitic mass] 30.7 pg Invalid Interpretation Code 27.0-32.0 [facility] Work Phone: MCHC mass conc (RBC) 33.2 G/GL Invalid Interpretation Code 32-36 [facility] Work Phone: MCV 92.3 fL Invalid Interpretation Code 80-94 [facility] Work Phone: [phone] MCV (RBC) [Entitic vol] 92.3 fL Invalid Interpretation Code 80-94 [facility] Work Phone: mean corpuscular hemoglobin concentration, RBC 33.2 G/GL Invalid Interpretation Code 32-36 [facility] Work Phone: Monocytes/100 leukocytes 9.0 % Invalid Interpretation Code 0-10 [facility] Work Phone: [phone] Monocytes/100 WBC (Bld) 9.0 % Invalid Interpretation Code 0-10 [facility] Work Phone: neutrophil count, blood 3.0 X10 3/UL Invalid Interpretation Code 2.0-7.7 [facility] Work Phone: Neutrophils/100 WBC (Bld) 47.7 % Invalid Interpretation Code 47-70 [facility] Work Phone: Neutrophils/100 WBC Auto (Bld) 47.7 % Invalid Interpretation Code 47-70 [facility] Work Phone: Platelet mean volume (Bld) [Entitic vol] 9.1 fL Invalid Interpretation Code 6.2-12.0 [facility] Work Phone: Platelets 358 10*3/mm3 Invalid Interpretation Code 150-450 [facility] Work Phone: Platelets (Bld) [#/Vol] 358 10*3/uL Invalid Interpretation Code 150-450 [facility] Work Phone: [phone] PMV by Veronica 9.1 fL Invalid Interpretation Code 6.2-12.0 [facility] Work Phone: [phone] RBC (Bld) [#/Vol] 4.01 10*6/uL Low 4.6-6.2 [facility] Work Phone: [phone] RDW SD 43.9 fL Invalid Interpretation Code 35.1-43.9 [facility] Work Phone: [phone] red blood cell distribution width, size density 43.9 fL Invalid Interpretation Code 35.1-43.9 [facility] Work Phone: [phone] WBC (Bld) [#/Vol] 6.3 10*3/uL Invalid Interpretation Code 4.4-11.0 [facility] Work Phone: [phone] WBC (Leukocytes) 6.3 10*3/uL Invalid Interpretation Code 4.4-11.0 [facility] Work Phone: [phone] Office Visit: s/p severe R l eg streptoccal cellulitis, sepsis and ALICJA; get CBCon 01-11-2016 Smoking cessation education (procedure) yes Invalid Interpretation Code [facility] Work Phone: [phone] Lab Report: Myoglobin, Urine on 01-09-2016 Myoglobin (U) [Mass/Vol] < 2 ng/mL Invalid Interpretation Code 0-13 [facility] Work Phone: [phone] Lab Report: Basic Metabolic Profile (BMP)on 01-07-2016 Anion gap 8 mmol/L Invalid Interpretation Code 5-15 [facility] Work Phone: [phone] Anion gap [Moles/Vol] 8 mmol/L Invalid Interpretation Code 5-15 [facility] Work Phone: [phone] BUN/Creatinine Ratio 13.7 RATIO Invalid Interpretation Code 10-20 [facility] Work Phone: [phone] Calcium [Mass/Vol] 8.3 mg/dL Low 8.5-10.1 [facility] Work Phone: calculated corrected value of creatinine clearance with body surface area 71.51 mL/min Invalid Interpretation Code [facility] Work Phone: [phone] Chloride [Moles/Vol] 110 mmol/L High 98-[address] [facility] [address] [facility] Work Phone: [phone] CO2 25.0 mmol/L Invalid Interpretation Code 21.0-32.0 [facility] Work Phone: [phone] CO2 (BldV) [Partial pressure] 25.0 mmol/L Invalid Interpretation Code 21.0-32.0 [facility] Work Phone: [phone] Creatinine 71.51 mL/min Invalid Interpretation Code [facility] Work Phone: [phone] Creatinine [Mass/Vol] 1.17 mg/dL Invalid Interpretation Code 0.70-1.30 [facility] Work Phone: [phone] eGFR (non-black) 82 mL/min/{1.73_m2} Invalid Interpretation Code >60 [facility] Work Phone: [phone] GFR/1.73 sq M.predicted among non-blacks MDRD (S/P/Bld) [Vol rate/Area] 67 mL/min/{1.73_m2} Invalid Interpretation Code >60 [facility] Work Phone: [phone] Glomerular Filtration rate 82 mL/min Invalid Interpretation Code >60 [facility] Work Phone: [phone] Glucose [Mass/Vol] 98 mg/dL Invalid Interpretation Code 70-110 [facility] Work Phone: [phone] Potassium [Moles/Vol] 4.1 mmol/L Invalid Interpretation Code 3.5-5.1 [facility] Work Phone: [phone] Sodium [Moles/Vol] 143 mmol/L Invalid Interpretation Code 136-145 [facility] Work Phone: [phone] Urea nitrogen [Mass/Vol] 16 mg/dL Invalid Interpretation Code 7-18 [facility] Work Phone: [phone] Urea nitrogen/Creatinine [Mass ratio] 13.2414083 mg/mg Invalid Interpretation Code 10-20 [facility] [...] COUNTED 100 Invalid Interpretation Code MANUAL DIFF [facility] Work Phone: Metamyelocytes/100 leukocytes 4 % High 0-1 [facility] Work Phone: Metamyelocytes/100 WBC (Bld) 4 % High 0-1 [facility] Work Phone: Myelocytes (Bld) [#/Vol] 1 (?) High 0-0 [facility] Work Phone: Segmented Neutrophils/100 leukocytes 85 % High 47-70 [facility] Work Phone: Segmented neutrophils/100 WBC (Bld) 85 % High 47-70 [facility] Work Phone: total cells counted, blood 100 Invalid Interpretation Code MANUAL DIFF [facility] Work Phone: TOXIC GRAN 1+ Invalid Interpretation Code [facility] Work Phone: toxic granulation, blood 1+ Invalid Interpretation Code [facility] Work Phone: Lab Report: CBC W/Diff, Auto matedon 01-06-2016 Band form neutrophils (Bld) [#/Vol] 4 % Invalid Interpretation Code 0-5 [facility] Work Phone: Blasts/100 WBC (Bld) 1 % Critically high 0-0 [facility] [facility] Work Phone: Eosinophils/100 leukocytes 2 % Invalid Interpretation Code 0-5 [facility] Work Phone: Eosinophils/100 WBC (Bld) 2 % Invalid Interpretation Code 0-5 [facility] Work Phone: Hypochromia presence 1+ Invalid Interpretation Code [facility] Work Phone: [phone] Hypochromia Ql (Bld) 1+ Invalid Interpretation Code [facility] Work Phone: [phone] Platelets LM Ql (Bld) ADEQUATE Invalid Interpretation Code ADEQ [facility] Work Phone: Promyelocytes (Bld) [#/Vol] 1 (?) High 0-0 [facility] Work Phone: Replaced Document: CBC W/Dif f, Automatedon 01-05-2016 GE use only - for [employer] import when terms are not otherwise specified 5 % Invalid Interpretation Code [facility] Work Phone: PLASMA CELL 5 % Invalid Interpretation Code [facility] Work Phone: [phone] RBC morphology finding Nom (Bld) NORM C+C Invalid Interpretation Code NORM C AND C [facility] Work Phone: Lab Report: CPK Total, Creat ine Kinaseon 01-04-2016 CK [Catalytic activity/Vol] 61 U/L Invalid Interpretation Code 39-308 [facility] Work Phone: Lab Report: Prealbuminon Prealbumin 4.8 mg/dL Low 20.0-40.0 [facility] Work Phone: [phone] Prealbumin [facility] [Mass/Vol] 4.8 mg/dL Low 20.0-40.0 [facility] Work Phone: Lab Report: (P) Urinalysis, Completeon 01-03-2016 Albumin Ql (U) 30 High Negative [facility] Work Phone: [phone] Bilirubin Ql (U) 1 High Negative [facility] Work Phone: Clarity (U) Clear Invalid Interpretation Code Clear [facility] Work Phone: Color (U) Yellow Invalid Interpretation Code Yellow [facility] Work Phone: Glucose Ql (U) Normal mg/dl Invalid Interpretation Code Normal [facility] Work Phone: [phone] Ketones (U) [Mass/Vol] Negative Invalid Interpretation Code Negative [facility] Work Phone: [phone] Leukocyte esterase Test strip Ql (U) 25 High Negative [facility] Work Phone: [phone] NITRITE UR Negative Invalid Interpretation Code Negative [facility] Work Phone: [phone] Occult Blood, urine 10 High Negative [facility] Work Phone: [phone] OCCULT BLOOD-UR 10 High Negative [facility] Work Phone: [phone] pH (U) 5.0 [pH] Invalid Interpretation Code 5.0 - 8.0 [facility] Work Phone: [phone] Specific gravity Refractometry (U) [Rel density] 1.015 Invalid Interpretation Code 1.002-1.030 [facility] Work Phone: [phone] Urine, ketones presence Negative Invalid Interpretation Code Negative [facility] Work Phone: [phone] Urine, pH 5.0 [pH] Invalid Interpretation Code 5.0 - 8.0 [facility] Work Phone: [phone] Urine, protein 30 mg/dL High Negative [facility] Work Phone: [phone] UROBILI 8 mg/dL High Normal [facility] Work Phone: [phone] Lab Report: Creatinine, Urin e (random)on 01-03-2016 Creatinine (U) [Mass/Vol] 164.00 mg/dL Invalid Interpretation Code NO RANGE EST. [facility] Work Phone: Lab Report: Urinalysis, Comp leteon 01-03-2016 AMORPHOUS 2+ Invalid Interpretation Code [facility] Work Phone: [phone] Bacteria LM.HPF (Urine sed) [#/Area] 0 /[HPF] Invalid Interpretation Code None Seen [facility] Work Phone: Epithelial cells LM.HPF (Urine sed) [#/Area] 0-5 SEEN Invalid Interpretation Code 0-5 [facility] Work Phone: Mucus Ql (Urine sed) 0 SEEN Invalid Interpretation Code [facility] Work Phone: [phone] RBC LM.HPF (Urine sed) [#/Vol] 0 SEEN Invalid Interpretation Code 0-5 [facility] Work Phone: [phone] Urinalysis, white blood cells, culture and sensitivity 5-10 SEEN Invalid Interpretation Code 0-5 [facility] Work Phone: [phone] Urine, mucus presence in sediment 0 SEEN Invalid Interpretation Code [facility] Work Phone: [phone] WBC (Leukocytes) 5-10 SEEN Invalid Interpretation Code 0-5 [facility] Work Phone: [phone] Lab Report: Urine Sodiumon 0 01-03-2016 Sodium (U) [Moles/Vol] mmol/L Invalid Interpretation Code Not Establ. [employer] Work Phone: [phone] Urine, sodium mmol/L Invalid Interpretation Code Not Establ. [facility] Work Phone: [phone] Lab Report: CBC W/Diff, Auto matedon 08-17-2015 Absolute Lymphocytes 1.42 X10 3/UL Invalid Interpretation Code 0.83-4.51 [facility] Work Phone: [phone] Absolute Neut 3.4 X10 3/UL Invalid Interpretation Code 2.0-7.7 [facility] Work Phone: [phone] Absolute Neutrophil count 3.4 X10 3/UL Invalid Interpretation Code 2.0-7.7 [facility] Work Phone: [phone] Lymphocytes 1.42 X10 3/UL Invalid Interpretation Code 0.83-4.51 [facility] Work Phone: [phone] Lab Report: BNP,B-Type NATRI URETIC PEPTIDEon 03-25-2015 Natriuretic peptide B (Bld) [Mass/Vol] 28.1 pg/mL Invalid Interpretation Code 0-100 [facility] [employer] Work Phone: [phone] Lab Report: Magnesiumon 02- Magnesium [Mass/Vol] 2.1 mg/dL Invalid Interpretation Code 1.8-2.4 [facility] [employer] Work Phone: [phone] Lab Report: Thyroid Stim Hor froy (TSH)on 01-10-2015 Thyroid stimulating hormone (TSH) 1.49 u[iU]/mL Invalid Interpretation Code 0.358-3.74 [facility] Work Phone: TSH Qn 1.49 m[IU]/L Invalid Interpretation Code 0.358-3.74 [facility] Work Phone: Office Visit: [facility] 01-10-20 15 cardiac risk group C Invalid Interpretation Code [facility] Work Phone: General cardiovascular disease 10Y risk [#] [place] N/A Invalid Interpretation Code [facility] Work Phone: Replaced Document: Margy Campoverde 07-16-2014 EKG QRS axis -39 deg Invalid Interpretation Code [facility] Work Phone: electrocardiogram interpretation Sinus Rhythm -Left axis -anterior fascicular block. -Anteroseptal infarct -age undetermined. ABNORMAL Invalid Interpretation Code [facility] Work Phone: [phone] Heart rate 63 /min Invalid Interpretation Code [facility] Work Phone: [phone] Interpretation Sinus Rhythm -Left axis -anterior fascicular block. -Anteroseptal infarct -age undetermined. ABNORMAL Invalid Interpretation Code [facility] Work Phone: P [place] 59 deg Invalid Interpretation Code [facility] Work Phone: P wave axis, electrocardiogram 59 deg Invalid Interpretation Code [facility] Work Phone: IA Interval 146 ms Invalid Interpretation Code [facility] Work Phone: IA interval, electrocardiogram 146 ms Invalid Interpretation Code [facility] Work Phone: QRS axis, electrocardiogram -39 deg Invalid Interpretation Code [facility] Work Phone: QRS Duration 96 ms Invalid Interpretation Code [facility] Work Phone: QRS duration, electrocardiogram 96 ms Invalid Interpretation Code [facility] Work Phone: QT Interval new path ms Invalid Interpretation Code [facility] Work Phone: QT interval, electrocardiogram new path ms Invalid Interpretation Code [facility] Work Phone: T [place] 42 deg Invalid Interpretation Code [facility] Work Phone: [phone] T wave axis, electrocardiogram 42 deg Invalid [...] Alkaline phosphatase (ALP) 97 U/L Normal 50-136 [facility] Work Phone: [phone] ALP (Bld) [Catalytic activity/Vol] 97 U/L Normal 50-136 [facility] Work Phone: ALT [Catalytic activity/Vol] 26 U/L Normal 12-78 [facility] Work Phone: [phone] AST [Catalytic activity/Vol] 17 U/L Normal 15-37 [facility] Work Phone: [phone] Bilirubin [Mass/Vol] 0.60 mg/dL Normal 0.00-1.[address] [facility] [address] [facility] Work Phone: [phone] Bilirubin.direct [Mass/Vol] 0.12 mg/dL Normal 0.00-0.30 [facility] Work Phone: [phone] Replaced Document: Margy Dejesus CG Observationson 04-20-2013 Pulse (Heart Rate) 380 ms Invalid Interpretation Code [facility] Work Phone: [phone] QT interval/QT interval (corrected for heart rate), electrocardiogram 380 ms Invalid Interpretation Code [facility] Work Phone: Lab Report: PTon 08-11-2010 INR Coag (PPP) [Relative time] 1.0 {INR} Normal [facility] Work Phone: prothrombin time, actual/normal, ratio 10.8 SECONDS Normal 9.1-11.7 [facility] Work Phone: Vital Signs Date Time Vital Sign Value Performing Clinician Facility 07-19-2025 15:14-0400 Diastolic blood pressure 42 mm[Hg] Dr. Speedy Boswell MD Work Phone: [facility] 07-19-2025 15:14-0400 Systolic blood pressure 68 mm[Hg] Dr. Speedy Boswell MD Work Phone: [phone] [address] 07-19-2025 14:59-0400 Body height 170.[address] Speedy Boswell MD Work Phone: 6([phone])535-122046 [address] 07-19-2025 14:59-0400 Body mass index (BMI) [Ratio] 46 kg/m2 Dr. Speedy Boswell MD Work Phone: [facility] 07-19-2025 14:59-0400 Body weight 133.[address] Speedy Boswell MD Work Phone: 4([phone])622-195343 [place] [address] 07-19-2025 14:59-0400 Heart rate 53 /min Dr. Speedy Boswell MD Work Phone: [facility] 07-19-2025 14:59-0400 Respiratory rate 18 /min Dr. Spedey Boswell MD Work Phone: [facility] 05-09-2025 02:53-0400 Body temperature 98.2 [degF] Dr. Speedy Boswell MD Work Phone: [facility] 05-09-2025 02:53-0400 Diastolic blood pressure 82 mm[Hg] Dr. Speedy Boswell MD Work Phone: [facility] 05-09-2025 02:53-0400 Heart rate 57 /min Dr. Speedy Boswell MD Work Phone: [facility] 05-09-2025 02:53-0400 Respiratory rate 16 /min Dr. Speedy Boswell MD Work Phone: [phone])[phone] [place] [address] 05-09-2025 02:53-0400 SaO2% (BldA) [Mass fraction] 97 % Dr. Speedy Boswell MD Work Phone: [phone])102-743252 [place] [address] 05-09-2025 02:53-0400 Systolic blood pressure 104 mm[Hg] Dr. Speedy Boswell MD Work Phone: 5(295)424-977752 [place] [address] 05-09-2025 00:02-0400 Body height 170.[address] Speedy Boswell MD Work Phone: 5(377)691-882552 [place] [address] 05-09-2025 00:02-0400 Body mass index (BMI) [Ratio] 48 kg/m2 Dr. Speedy Boswell MD Work Phone: 4(038)863-035152 [place] [address] 05-09-2025 00:02-0400 Body weight 139.[address] Speedy Boswell MD Work Phone: 5(759)615-102252 [place] [address] 05-03-2025 11:28-0400 Body height 170.[address] Speedy Boswell MD Work Phone: 3(708)272-137252 [place] [address] 05-03-2025 11:28-0400 Body mass index (BMI) [Ratio] 46 kg/m2 Dr. Speedy Boswell MD Work Phone: 5(677)321-586652 [place] [address] 05-03-2025 11:28-0400 Body weight 133.[address] Speedy Boswell MD Work Phone: 8(826)367-418852 [place] [address] 05-03-2025 11:28-0400 Diastolic blood pressure 57 mm[Hg] Dr. Speedy Boswell MD Work Phone: 8([phone])870-249852 [place] [address] 05-03-2025 11:28-0400 Heart rate 57 /min Dr. Speedy Boswell MD Work Phone: 0(319)954-458552 [place] [address] 05-03-2025 11:28-0400 Respiratory rate 18 /min Dr. Speedy Boswell MD Work Phone: 3(218)490-968452 [place] [address] 05-03-2025 11:28-0400 Systolic blood pressure 101 mm[Hg] Dr. Speedy Boswell MD Work Phone: [facility] 03-30-2024 14:12-0400 Body height 180.3 cm Kel Nielsen MD Work Phone: [facility] 03-30-2024 14:12-0400 Body mass index (BMI) [Ratio] 38.77 kg/m2 Kel Nielsen MD Work Phone: [facility] 03-30-2024 14:12-0400 Body weight 126.1 kg Kel Nielsen MD Work Phone: [facility] 01-07-2024 06:15-0500 Body temperature 97.11 [degF] David Ramirez MD Work Phone: [facility] 01-07-2024 06:15-0500 Diastolic blood pressure 63 mm[Hg] David Ramirez MD Work Phone: [facility] 01-07-2024 06:15-0500 Heart rate 70 /min David Ramirez MD Work Phone: [facility] 01-07-2024 06:15-0500 Respiratory rate 18 /min David Ramirez MD Work Phone: [facility] 01-07-2024 06:15-0500 SaO2% (BldA) [Mass fraction] 93 % David Ramirez MD Work Phone: [facility] 01-07-2024 06:15-0500 Systolic blood pressure 109 mm[Hg] David Ramirez MD Work Phone: [facility] 01-06-2024 07:48-0500 Body height 170.2 cm David Ramirez MD Work Phone: [facility] 01-06-2024 07:48-0500 Body mass index (BMI) [Ratio] 46.05 kg/m2 David Ramirez MD Work Phone: [facility] 01-06-2024 07:48-0500 Body weight 133.36 kg David Ramirez MD Work Phone: [facility] 10-30-2023 15:12-0500 Body height 172.[address] Speedy Boswell Work Phone: [facility] 10-30-2023 15:12-0500 Body mass index (BMI) [Ratio] 44.6 kg/m2 Dr. Speedy Boswell Work Phone: [facility] 10-30-2023 15:12-0500 Body weight 133.[address] Speedy Boswell Work Phone: [facility] 10-30-2023 15:12-0500 Diastolic blood pressure 70 mm[Hg] Dr. Speedy Boswell Work Phone: [facility] 10-30-2023 15:12-0500 Heart rate 60 /min Dr. Speedy Boswell Work Phone: [facility] 10-30-2023 15:12-0500 Respiratory rate 18 /min Dr. Speedy Boswell Work Phone: [facility] 10-30-2023 15:12-0500 Systolic blood pressure 111 mm[Hg] Dr. Speedy Bsowell Work Phone: [facility] 09-10-2023 14:36-0400 Body height 172.[address] Speedy Boswell Work Phone: [facility] 09-10-2023 14:36-0400 Diastolic blood pressure 75 mm[Hg] Dr. Speedy Boswell Work Phone: [facility] 09-10-2023 14:36-0400 Heart rate 60 /min Dr. Speedy Boswell Work Phone: [facility] 09-10-2023 14:36-0400 Respiratory rate 20 /min Dr. Speedy Boswell Work Phone: [facility] 09-10-2023 14:36-0400 Systolic blood pressure 116 mm[Hg] Dr. Speedy Boswell Work Phone: [facility] 08-26-2023 15:31-0400 Body height 180.3 cm Kel Nielsen MD Work Phone: [facility] 08-26-2023 15:31-0400 Body mass index (BMI) [Ratio] 38.77 kg/m2 Kel Nielsen MD Work Phone: [facility] 08-26-2023 15:31-0400 Body weight 126.1 kg Kel Nielsen MD Work Phone: [facility] 02-11-2023 15:35-0400 Body height 180.3 cm Kel Nielsen MD Work Phone: [facility] 02-11-2023 15:35-0400 Body mass index (BMI) [Ratio] 38.77 kg/m2 Kel Nielsen MD Work Phone: [facility] 02-11-2023 15:35-0400 Body weight 126.1 kg Kel Nielsen MD Work Phone: [facility] 02-11-2023 15:35-0400 Diastolic blood pressure 73 mm[Hg] Kel Nielsen MD Work Phone: [facility] 02-11-2023 15:35-0400 Systolic blood pressure 116 mm[Hg] Kel Nielsen MD Work Phone: [facility] 10-27-2022 20:07-0500 Diastolic blood pressure 74 mm[Hg] Dr. Speedy Boswell Work Phone: [facility] 10-27-2022 20:07-0500 Heart rate 76 /min Dr. Speedy Boswell Work Phone: [facility] 10-27-2022 20:07-0500 Respiratory rate 19 /min Dr. Speedy Boswell Work Phone: [facility] 10-27-2022 20:07-0500 SaO2% (BldA) [Mass fraction] 95 % Dr. Speedy Boswell Work Phone: [facility] 10-27-2022 20:07-0500 Systolic blood pressure 110 mm[Hg] Dr. Speedy Boswell Work Phone: [facility] 10-27-2022 16:09-0500 Body height 172.[address] Speedy Boswell Work Phone: [facility] 10-27-2022 16:09-0500 Body mass index (BMI) [Ratio] 43.2 kg/m2 Dr. Speedy Boswell Work Phone: [facility] 10-27-2022 16:09-0500 Body temperature 98.1 [degF] Dr. Spedey Boswell Work Phone: [facility] 10-27-2022 16:09-0500 Body weight 128.[address] Speedy Boswell Work Phone: [facility] 08-20-2022 13:26-0400 Body height 180.[address] Speedy Boswell Work Phone: [facility] Work Phone: 08-20-2022 13:26-0400 Body mass index (BMI) [Ratio] 39.6 kg/m2 Dr. Speedy Boswell Work Phone: [facility] Work Phone: 08-20-2022 13:26-0400 Body weight 128.[address] Speedy Boswell Work Phone: [facility] Work Phone: 08-20-2022 13:26-0400 Diastolic blood pressure 55 mm[Hg] Dr. Speedy Boswell Work Phone: [facility] Work Phone: 08-20-2022 13:26-0400 Heart rate 60 /min Dr. Speedy Boswell Work Phone: [facility] Work Phone: 08-20-2022 13:26-0400 Respiratory rate 18 /min Dr. Speedy Boswell Work Phone: [facility] Work Phone: 08-20-2022 13:26-0400 Systolic blood pressure 111 mm[Hg] Dr. Speedy Boswell Work Phone: [facility] Work Phone: 08-09-2022 14:24-0400 Body mass index (BMI) [Ratio] 39.6 kg/m2 Dr. Speedy Boswell Work Phone: [facility] Work Phone: 08-09-2022 14:24-0400 Body weight 128.[address] Speedy Boswell Work Phone: [facility] Work Phone: 02-05-2022 11:38-0500 Body height 180.[address] Speedy Boswell Work Phone: [facility] Work Phone: 02-05-2022 11:38-0500 Body weight 135.[address] Speedy Boswell Work Phone: [facility] Work Phone: 02-05-2022 11:38-0500 Diastolic blood pressure 73 mm[Hg] Dr. Speedy Boswell Work Phone: [facility] Work Phone: 02-05-2022 11:38-0500 Heart rate 66 /min Dr. Speedy Boswell Work Phone: [facility] Work Phone: 02-05-2022 11:38-0500 Respiratory rate 18 /min Dr. Speedy Boswell Work Phone: [facility] Work Phone: 02-05-2022 11:38-0500 SaO2% (BldA) [Mass fraction] 97 % Dr. Speedy Boswell Work Phone: [facility] Work Phone: 02-05-2022 11:38-0500 Systolic blood pressure 125 mm[Hg] Dr. Speedy Boswell Work Phone: [facility] Work Phone: 02-05-2022 10:38-0500 Body height 180.[address] Speedy Boswell Work Phone: [facility] Work Phone: 02-05-2022 10:38-0500 Body weight 135.[address] Speedy Boswell Work Phone: [facility] Work Phone: 02-05-2022 10:38-0500 Diastolic blood pressure 73 mm[Hg] Dr. Speedy Boswell Work Phone: [facility] Work Phone: 02-05-2022 10:38-0500 Heart rate 66 /min Dr. Speedy Boswell Work Phone: [facility] Work Phone: 02-05-2022 10:38-0500 Respiratory rate 18 /min Dr. Speedy Boswell Work Phone: [facility] Work Phone: 02-05-2022 10:38-0500 SaO2% (BldA) [Mass fraction] 97 % Dr. Speedy Boswell Work Phone: [facility] Work Phone: 02-05-2022 10:38-0500 Systolic blood pressure 125 mm[Hg] Dr. Speedy Boswell Work Phone: [facility] Work Phone: 01-15-2022 23:03-0500 Diastolic blood pressure 62 mm[Hg] Dr. Speedy Boswell Work Phone: [facility] Work Phone: 01-15-2022 23:03-0500 Systolic blood pressure 118 mm[Hg] Dr. Speedy Boswell Work Phone: [facility] Work Phone: 01-15-2022 19:47-0500 Body mass index (BMI) [Ratio] 41 kg/m2 Dr. Speedy Boswell Work Phone: [facility] Work Phone: 01-15-2022 19:47-0500 Body temperature 98 [degF] Dr. Speedy Boswell Work Phone: [facility] Work Phone: 01-15-2022 19:47-0500 Body weight 133.[address] Speedy Boswell Work Phone: [facility] Work Phone: 01-15-2022 19:47-0500 Heart rate 71 /min Dr. Speedy Boswell Work Phone: [facility] Work Phone: 01-15-2022 19:47-0500 Respiratory rate 15 /min Dr. Speedy Boswell Work Phone: [facility] Work Phone: 01-15-2022 19:47-0500 SaO2% (BldA) [Mass fraction] 99 % Dr. Speedy Boswell Work Phone: [facility] Work Phone: 06-01-2021 00:25-0400 Body temperature 97.81 [degF] Roni Figueroa MD Work [facility]: [facility] Work Phone: 06-01-2021 00:25-0400 Diastolic blood pressure 93 mm[Hg] Roni Figueroa MD Work Phone: [facility] Work Phone: 06-01-2021 00:25-0400 Heart rate 82 /min Roni Figueroa MD Work Phone: [facility] Work Phone: 06-01-2021 00:25-0400 Respiratory rate 17 /min Roni Figueroa MD Work Phone: [facility] Work Phone: 06-01-2021 00:25-0400 SaO2% (BldA) [Mass fraction] 98 % Roni Figueroa MD Work Phone: [facility] Work Phone: 06-01-2021 00:25-0400 Systolic blood pressure 155 mm[Hg] Roni Figueroa MD Work Phone: [facility] Work Phone: 05-24-2021 00:05-0400 Body height 180.3 cm Roni Figueroa MD Work Phone: [facility] Work Phone: 05-24-2021 00:05-0400 Body mass index (BMI) [Ratio] 38.77 kg/m2 Roni Figueroa MD Work Phone: [facility] Work Phone: 05-24-2021 00:05-0400 Body weight 126.1 kg Roni Figueroa MD Work Phone: [facility] Work Phone: 03-22-2021 14:14-0400 Body mass index (BMI) [Ratio] 41 kg/m2 Dr. Speedy Boswell Work Phone: [facility] Work Phone: 03-22-2021 14:14-0400 Body mass index (BMI) [Ratio] 41 kg/m2 Dr. Speedy Boswell Work Phone: [facility] Work Phone: 07-03-2017 08:47-0400 Body height 181.61 cm Lowell Otero MD [facility] Work Phone: 07-03-2017 08:47-0400 Body mass index (BMI) [Ratio] 44.75 kg/m2 Lowell Otero MD [facility] Work Phone: 07-03-2017 08:47-0400 Body surface area Derived from formula 2.61 m2 Lowell Otero MD [facility] Work Phone: 07-03-2017 08:47-0400 Body temperature 96.9 [degF] Lowell Otero MD [facility] Work Phone: 07-03-2017 08:47-0400 Body weight 147.6 kg Lowell Otero MD [facility] Work Phone: 07-03-2017 08:47-0400 Diastolic blood pressure 81 mm[Hg] Lowell Otero MD [facility] Work Phone: 07-03-2017 08:47-0400 Heart rate 64 /min Lowell Otero MD [facility] Work Phone: 07-03-2017 08:47-0400 Respiratory rate 18 /min Lowell Otero MD [facility] Work Phone: 07-03-2017 08:47-0400 Systolic blood pressure 129 mm[Hg] Lowell Otero MD [facility] Work Phone: 07-03-2017 08:47-0400 Weight 147.6 kg Peg Deng RN [facility] Work Phone: 06-19-2017 10:56-0400 Body height 181.61 cm Cary George MD Work Phone: [facility] Work Phone: 06-19-2017 10:56-0400 Body mass index (BMI) [Ratio] 44 kg/m2 Cary George MD Work Phone: [facility] Work Phone: 06-19-2017 10:56-0400 Body temperature 97.2 [degF] Cary George MD Work Phone: [facility] Work Phone: 06-19-2017 10:56-0400 Body weight 145.15 kg Cary George MD Work Phone: [facility] Work Phone: 06-19-2017 10:56-0400 Diastolic blood pressure 76 mm[Hg] Cary George MD Work Phone: [facility] Work Phone: 06-19-2017 10:56-0400 Heart rate 75 /min Cary George MD Work Phone: [facility] Work Phone: 06-19-2017 10:56-0400 Respiratory rate 18 /min Cary George MD Work Phone: [facility] Work Phone: 06-19-2017 10:56-0400 Systolic blood pressure 106 mm[Hg] Cary George MD Work Phone: [facility] Work Phone: 06-14-2017 13:20-0400 Body height 181.61 cm [facility] Work Phone: 06-14-2017 13:20-0400 Body mass index (BMI) [Ratio] 44.91 kg/m2 [facility] Work Phone: 06-14-2017 13:20-0400 Body weight 148.15 kg [facility] Work Phone: 06-14-2017 13:20-0400 Diastolic blood pressure 64 mm[Hg] [facility] Work Phone: 06-14-2017 13:20-0400 Heart rate 66 /min [facility] Work Phone: 06-14-2017 13:20-0400 Systolic blood pressure 100 mm[Hg] [facility] Work Phone: 05-23-2017 12:15-0400 Body height 181.61 cm [facility] Work Phone: 05-23-2017 12:15-0400 Body mass index (BMI) [Ratio] 43.98 kg/m2 Rizwana Johnson LPN [facility] Work Phone: 05-23-2017 12:15-0400 Body temperature 97.8 [degF] Rizwana Johnson LPN [facility] Work Phone: 05-23-2017 12:15-0400 Body weight 145.06 kg Rizwana Johnson LPN [facility] Work Phone: 05-23-2017 12:15-0400 Diastolic blood pressure 56 mm[Hg] Rizwana Johnson LPN [facility] Work Phone: 05-23-2017 12:15-0400 Heart rate 69 /min Rizwana Johnson LPN [facility] Infect ious Disease Work Phone: 05-23-2017 12:15-0400 Respiratory rate 20 /min Rizwana Johnson LPN [facility] Work Phone: 05-23-2017 12:15-0400 SaO2% (BldA) [Mass fraction] 98 % Rizwana Johnson LPN [facility] Work Phone: 05-23-2017 12:15-0400 Systolic blood pressure 113 mm[Hg] Rizwana Johnson LPN [facility] Work Phone: 05-15-2017 10:40-0400 Body surface area Derived from formula 2.61 m2 Rizwana Johnson LPN [facility] Work Phone: 05-01-2017 09:51-0400 Body mass index (BMI) [Ratio] 44.86 kg/m2 Arlene Signs [facility] Work Phone: 05-01-2017 09:51-0400 Body temperature 96.7 [degF] Arlene Signs [facility] Work Phone: 05-01-2017 09:51-0400 Body weight 147.96 kg Arlene Signs [facility] Work Phone: 05-01-2017 09:51-0400 Diastolic blood pressure 66 mm[Hg] Arlene Signs [facility] Work Phone: 05-01-2017 09:51-0400 Heart rate 61 /min Arlene Signs [facility] Work Phone: 05-01-2017 09:51-0400 SaO2% (BldA) [Mass fraction] 100 % Arlene Signs [facility] Work Phone: 05-01-2017 09:51-0400 Systolic blood pressure 110 mm[Hg] Arlene Signs [facility] Work Phone: 04-03-2017 10:29-0400 Body height 181.61 cm Arlene Signs [facility] Work Phone: 04-03-2017 10:29-0400 Body mass index (BMI) [Ratio] 44.39 kg/m2 Arlene Signs [facility] Work Phone: 04-03-2017 10:29-0400 Body temperature 97.2 [degF] Arlene Signs [facility] Work Phone: 04-03-2017 10:29-0400 Body weight 146.42 kg Arlene Signs [facility] Work Phone: 04-03-2017 10:29-0400 Diastolic blood pressure 61 mm[Hg] Arlene Signs [facility] Work Phone: 04-03-2017 10:29-0400 Heart rate 64 /min Arlene Signs [facility] Work Phone: 04-03-2017 10:29-0400 Respiratory rate 22 /min Arlene Tavarez MD [facility] Work Phone: 04-03-2017 10:29-0400 SaO2% (BldA) [Mass fraction] 97 % Arlene Tavarez MD [facility] Work Phone: 04-03-2017 10:29-0400 Systolic blood pressure 96 mm[Hg] Arlene Tavarez MD [facility] Work Phone: 12-14-2016 13:36-0500 Body surface area Derived from formula 2.61 m2 Arlene Tavarez MD [facility] Work Phone: Encounters Encounter Date Encounter Type Care Provider Facility Start: 07-19-2025 End: 07-19-2025 Patient encounter procedure David Still [employer]-C -[facility] Work Phone: Start: 07-19-2025 End: 07-19-[address] Speedy Boswell MD Work Phone: -[facility] Start: 07-02-2025 End: 07-02-[address] Speedy Boswell MD Work Phone: -[facility] Start: 07-02-2025 End: 07-02-2025 Patient encounter procedure David Still [employer]-C -[facility] [place] Work Phone: Start: 07-02-2025 End: 07-02-2025 ambulatory David Still NP Facility:[facility] Start: 06-24-2025 End: 06-24-[address] Jm Anguiano MD -[facility] Work Phone: Start: 06-24-2025 End: 06-24-[address] Speedy Boswell MD Work Phone: -[facility] Start: 06-10-2025 ambulatory Delilah Foster Facility:[facility] Start: 06-10-2025 Non-patient / Non-visit Dr. Delilah simpson MD -[facility] Start: 06-10-2025 End: 06-10-[address] Speedy Boswell MD Work Phone: -[facility] Start: 06-10-2025 End: 06-10-[address] Delilah Foster MD -[facility] Work Phone: Start: 06-10-2025 End: 06-10-2025 ambulatory Delilah Hernando Facility:[facility] Start: 06-07-2025 End: 06-07-[address] Speedy Boswell MD Work Phone: -[facility] [place] [address] Start: 06-07-2025 End: 06-07-[address] Speedy Boswell MD -[facility] Start: 06-07-2025 End: 06-07-2025 ambulatory Speedy Boswell Facility:[facility] Start: 05-20-2025 End: 05-20-[address] Speedy Boswell MD Work Phone: -[facility] Start: 05-20-2025 End: 05-20-[address] Ge Tomlinson MD -[facility] Work Phone: Start: 05-12-2025 End: 05-12-[address] Speedy Boswell MD Work Phone: [facility] Work Phone: Start: 05-12-2025 End: 05-12-[address] Speedy Boswell MD -[facility] Start: 05-12-2025 End: 05-12-2025 ambulatory Speedy Boswell Facility:[facility] Start: 05-09-2025 End: 05-09-2025 Emergency department patient visit Dr. Speedy Boswell MD Work Phone: -Emergency Department Work Phone: Start: 05-03-2025 End: 05-03-[address] Delilah Foster MD -[facility] Work Phone: Start: 05-03-2025 End: 05-03-[address] Speedy Boswell MD Work Phone: [facility] Work Phone: Start: 02-18-2025 End: 02-18-2025 ambulatory Ge Tomlinson Facility:[facility] Start: 02-18-2025 End: 02-18-[address] Ge Tomlinson MD -[place] [facility] Work Phone: Start: 02-04-2025 End: 02-04-2025 ambulatory Ge Tomlinson Facility:[facility] Start: 02-04-2025 End: 02-04-[address] Ge Tomlinson MD -[facility] Work Phone: Start: 01-25-2025 End: 01-25-2025 ambulatory Ge Bushra Facility:[facility] Start: 01-25-2025 End: 01-25-[address] Ge Tomlinson MD -[facility] Work Phone: Start: 12-11-2024 End: 12-11-2024 ambulatory Speedy Boswell Facility:[facility] Start: 11-19-2024 End: 11-19-2024 ambulatory Ge Tomlinson Facility:[facility] Start: 11-18-2024 End: 11-18-2024 ambulatory Ravi Holder Facility:[facility] Start: 11-04-2024 End: 11-04-2024 ambulatory Delilah Foster Facility:[facility] Start: 10-26-2024 End: 10-26-2024 Emergency department patient visit Speedy Boswell Facility:[facility] Start: 10-20-2024 End: 10-21-2024 Emergency department patient visit Speedy Boswell Facility:[facility] Start: 09-10-2024 End: 09-10-2024 ambulatory Speedy Boswell Facility:[facility] Start: 08-01-2024 End: 08-01-2024 ambulatory Speedy Boswell Facility:[facility] Start: 03-30-2024 End: 03-30-2024 ambulatory KEL NIELSEN [facility] Start: 03-30-2024 End: 03-30-2024 Patient encounter procedure Kel Nielsen MD Work Phone: [facility] Comment on above: Arthritis of left kelsey btalar joint Start: 03-05-2024 End: 03-05-[address] Speedy Boswell Work Phone: [facility] Work Phone: Start: 03-05-2024 End: 03-05-[address] Speedy Boswell Work Phone: [facility]-Radiology, [facility] Work Phone: Start: 01-20-2024 End: 01-20-[address] Speedy Boswell Work Phone: [facility] Work Phone: Start: 01-16-2024 End: 01-16-[address] Speedy Boswell Work Phone: [facility] Work Phone: Start: 01-16-2024 End: 01-16-[address] Speedy Boswell Work Phone: [facility] Work Phone: Start: 01-06-2024 End: 01-07-2024 ambulatory SPEEDY BOSWELL Facility:[facility] Start: 01-06-2024 End: 01-07-2024 Subsequent hospital visit by physician David Ramirez MD Work Phone: [facility] Comment on above: Pacemaker lead malfu nction Start: 11-28-2023 End: 11-28-[address] Speedy Boswell Work Phone: [facility], [place] Work Phone: Start: 11-21-2023 End: 11-21-2023 ambulatory DAVID RAMIREZ Facility:[facility] Start: 11-21-2023 ambulatory CARMEN Camara y:[facility] Start: 11-21-2023 End: 11-21-2023 Subsequent hospital visit by physician Carmen Kaur MD Work Phone: [facility] Start: 11-01-2023 End: 11-01-[address] Speedy Boswell Work Phone: [facility] Work Phone: Start: 10-30-2023 End: 10-30-[address] Speedy Boswell Work Phone: [facility] Work Phone: Start: 09-24-2023 Non-patient / Non-visit Dr. Mika Boswell Work Phone: [facility] Work Phone: Start: 09-24-2023 Non-patient / Non-visit Dr. Mika Boswell Work Phone: [facility] Start: 09-24-2023 End: 09-24-[address] Speedy Boswell Work Phone: [facility] Work Phone: Start: 09-24-2023 End: 09-24-[address] Speedy Boswell Work Phone: [facility]-Cardiov[facility]cul [facility] Services Work Phone: Start: 09-11-2023 ambulatory [facility] Facility:[facility] Start: 09-10-2023 End: 09-10-[address] Speedy Boswell Work Phone: [facility] Work Phone: Start: 08-26-2023 End: 08-26-2023 ambulatory [facility] Start: 08-26-2023 End: 08-26-2023 Patient encounter procedure Kel Nielsen MD Work Phone: [facility] Comment on above: Arthritis of left kelsey btalar joint Start: 02-11-2023 End: 02-11-2023 Patient encounter procedure Kel Nielsen MD Work Phone: [facility] Comment on above: Arthritis of left kelsey btalar joint Start: 01-17-2023 End: 01-17-[address] Speedy Boswell Work Phone: [facility] Work Phone: Start: 01-17-2023 End: 01-17-[address] Speedy Boswell Work Phone: [facility]Laboratory Start: 11-20-2022 End: 11-20-[address] Speedy Boswell Work Phone: [facility] Start: 10-27-2022 End: 10-27-2022 Emergency department patient visit Dr. Speedy Boswell Work Phone: [facility]Emergency Department Start: 08-29-2022 End: 08-29-[address] Speedy Boswell Work Phone: [facility] Work Phone: Start: 08-29-2022 End: 08-29-[address] Speedy Boswell Work Phone: [facility]-Occupational Therapy Start: 08-20-2022 End: 08-20-[address] Speedy Boswell Work Phone: [facility] Start: 08-09-2022 End: 08-09-[address] Speedy Boswell Work Phone: [facility] Start: 06-22-2022 End: 06-22-[address] [facility] Start: 06-20-2022 End: 06-20-[address] Speedy Boswell Work Phone: [facility] Start: 05-24-2022 End: 05-24-[address] Speedy Boswell [facility] Start: 05-22-2022 End: 05-22-[address] Speedy Boswell Work Phone: [facility] Start: 05-10-2022 End: 05-10-[address] Speedy Boswell Work Phone: [facility] Start: 02-15-2022 End: 02-15-[address] Speedy Boswell Work Phone: [facility] Start: 02-07-2022 End: 02-07-[address] Speedy Boswell Work Phone: [facility] Start: 02-05-2022 End: 02-05-[address] Speedy Boswell Work Phone: [facility] Start: 01-24-2022 End: 01-24-[address] Speedy Boswell Work Phone: [facility] Start: 01-15-2022 End: 01-16-2022 Emergency department patient visit Dr. Speedy Boswell Work Phone: [facility]Emergency Department Start: 05-23-2021 End: 06-01-2021 Evaluation and management of inpatient Roni Figueroa MD Work Phone: [facility] [employer] Comment on above: Acute traumatic pain (Primary Dx) Start: 02-16-2011 End: 06-01-2016 Preoperative cardiovascular examination Arlene Signs [place] [facility] Work Phone: Procedures Date Procedure [...] or Pulmonary Embolism (PE)CRITICAL VALUE CALLED TO HPIKFR33/08/25 [place]7 Beto Stark.RESULTS READ BACK BY SAME. [...] Start: 01-07-2024 Assay of magnesium Rosio Douglass TRAFFIC SUPERVISOR-FURNACE UTILITY OPERATOR Work Phone: Start: 01-06-2024 Radiologic exam chest 2 views Manuel Redd MD Work Phone: Start: 01-06-2024 Insj 1 transvns eltrd perm pacemaker/impltbl dfb David Ramirez MD Work Phone: Start: 01-06-2024 CBC AND ELECTRONIC DIFF Wilda A Donova n TRAFFIC SUPERVISOR-FURNACE UTILITY OPERATOR Work Phone: Start: 01-06-2024 Complete blood count with white cell differential, automated Wilda Hinojosa TRAFFIC SUPERVISOR-FURNACE UTILITY OPERATOR Work Phone: Start: 01-06-2024 Creatinine blood Wilda Hinojosa TRAFFIC SUPERVISOR-FURNACE UTILITY OPERATOR Work Phone: Start: 01-06-2024 Ecg routine ecg w/least 12 lds w/i&r Wilda Hinojosa TRAFFIC SUPERVISOR-FURNACE UTILITY OPERATOR Work Phone: Start: 11-21-2023 DEVICE EVALUATION Other [...] Work Phone: Start: 05-31-2021 COVID-19 Hamilton Silvaton TRAFFIC SUPERVISOR - [employer]ER Work Phone: Start: 05-29-2021 Dup-scan xtr veins complete bilateral study Hamilton Mckinnon TRAFFIC SUPERVISOR - [employer]ER Work Phone: Start: 05-25-2021 Basic metabolic panel [...] PA-C Work Phone: Start: 06-01-2016 End: 06-01-2016 [facility] Divina Giles PA-C Work Phone: Start: 06-01-2016 End: 06-01-2016 Prgrmg eval implantable in prsn dual lead dfb Divina Giles PA-C Work Phone: Start: 06-01-2016 End: 08-22-2016 Follow Up Appt 3 months Divina Giles PA-C Work Phone: Start: 06-01-2016 End: 06-01-2016 Follow Up Appt 6 months Divina Giles PA-C Work Phone: Start: 06-01-2016 End: 06-01-2016 [facility] Divina Giles PA-C Work Phone: Start: 06-01-2016 End: 06-22-2016 Nuclear stress test -[facility] Divina Giles PA-C Work Phone: Start: 06-01-2016 End: 08-22-2016 [facility] Divina Giles PA-C Work Phone: Start: 06-01-2016 End: 06-01-2016 [facility] Divina Giles PA-C Work Phone: Start: [...] Start: 10-07-2013 End: 10-28-2013 Follow Up Appt Lois Mtz MD Start: 10-07-2013 End: 10-28-2013 MMM [...] PA-C Work Phone: Start: 07-01-2013 End: 07-24-2013 MIKA Angulo-C Work Phone: Start: 05-05-2013 End: 06-03-2013 Follow [...] Khris Spencer MD Start: 04-17-2012 End: 04-17-2013 [place] Khris Spencer MD Start: 04-17-2012 End: 04-17-2012 [...] automatic cardiac defibrillator IMPLANTATION OF DEFIBRILLATOR, HX J Carlos Tavarez MD Start: 06-01-2005 History of coronary [...] Detail Author Start: 12-20-2033 Tetanus vaccination TETANUS [facility] Start: 05-09-2025 [facility] Start: 05-09-2025 [facility] Start: 01-07-2025 Potassium [Moles/volume] in Serum or Plasma POTASSIUM [facility] Start: 11-21-2024 Potassium [Moles/volume] in Serum or Plasma POTASSIUM [facility] Start: 08-02-2024 Influenza vaccination Influenza Vaccine (Season Ended) [facility] Start: 05-27-2024 DTaP/Tdap/Td vaccine (3 - Td or Tdap) DTaP/Tdap/Td vaccine (3 - Td or Tdap) [facility] Work Phone: Start: 05-27-2024 DTaP/Tdap/Td Vaccines (3 - Td or Tdap) DTaP/Tdap/Td Vaccines (3 - Td or Tdap) [facility] Start: 05-27-2024 Tetanus vaccination TETANUS [facility] Start: 12-04-2023 End: 12-04-2023 Admission to same day surgery center 12/04/2023 9:45 AM EST - 12/04/2023 12:15 PM EST Surgery Cardiovascular Imaging Lab [facility] [address] [place] [id number] Justin Pittman MD [address] [place] [address] ICD Generator Changeout Cardiovascular Imaging Lab [facility] Comment on above: ICD Generator Changeout Start: 12-04-2023 Subsequent hospital visit by physician 12/04/2023 9:45 AM EST Hospital Encounter [facility] [address] [place] [address] Justin Pittman MD [address] [place] [address] ICD (implantable cardioverter-defibrill ator) battery depletion [facility] Comment on above: ICD (implantable cardioverter-defibrilla tor) battery depletion Start: 12-02-2023 Medicare Advantage Annual Wellness Visit Medicare Advantage Annual Wellness Visit [facility] Start: 09-10-[address] [facility] Work Phone: Start: 08-02-2023 COVID-19 Vaccine ( season) COVID-19 Vaccine () [facility] Start: 08-02-2023 Influenza vaccination Influenza Vaccine (#1) [facility] Start: 10-27-2022 [facility] Start: 08-15-2022 COVID-19 Vaccine (4 - Booster for Moderna series) COVID-19 Vaccine (4 - Booster for Moderna series) [facility] Start: 08-09-[address] [facility] Work Phone: Start: 05-25-2022 Creatinine measurement [facility] Start: 05-25-2022 Potassium measurement Potassium Level [facility] Start: 05-25-2022 Potassium monitoring Potassium monitoring [facility] Work Phone: Start: 08-02-2021 Influenza vaccination Flu vaccine (#1) [facility] Work Phone: Start: 2020 Abdominal aortic aneurysm screening ABDOMINAL AORTIC ANEURYSM HIGH RISK SCREEN [facility] Start: 2020 Pneumococcal 65+ years Vaccine (1 of 1 - PPSV23) Pneumococcal 65+ years Vaccine (1 of 1 - PPSV23) [facility] Work Phone: Start: 01-10-2020 Lipid panel Lipid Panel [facility] Start: 05-19-2019 Annual Wellness Visit (AWV) Annual Wellness Visit (AWV) [facility] Work Phone: Start: 11-01-2018 Lipid panel Lipid Panel [facility] Start: 01-08-2018 End: 01-08-2018 Appointment Appointment [facility] Work Phone: Start: 12-20-2017 End: 12-20-2017 Appointment Appointment [facility] Work Phone: Start: 09-13-2017 End: 09-13-2017 Follow Up Appt 3 months Follow Up Appt 3 months [facility] Work Phone: Start: 09-13-2017 End: 09-13-2017 Pacer Clinic Pacer Clinic [facility] Work Phone: Start: 09-13-2017 End: 09-13-2017 Patient encounter procedure Appointment [facility] Work Phone: Start: 09-13-2017 End: 09-13-2017 Follow Up Appt 3 months Follow Up Appt 3 months [facility] Work Phone: Start: 09-13-2017 End: 09-13-2017 Pacer Clinic Pacer Clinic [facility] Work Phone: Start: 07-16-2017 End: 07-16-2017 Patient encounter procedure Appointment [facility] Work Phone: Start: 07-03-2017 End: 07-07-2017 Follow Up Appt Other Follow Up Appt Other [facility] Work Phone: Start: 07-03-2017 End: 07-03-2017 Patient encounter procedure Appointment [facility] Work Phone: Start: 07-03-2017 End: 07-07-2017 Follow Up Appt Other Follow Up Appt Other [facility] Work Phone: Start: 07-02-2017 End: 07-02-2017 Patient encounter procedure Appointment [facility] Work Phone: Start: 06-19-2017 End: 06-19-2017 Esophagogastroduodenoscopy transoral diagnostic Upper gastrointestinal endoscopy [facility] Work Phone: Start: 06-19-2017 End: 06-19-2017 Follow Up Appt Other Follow Up Appt Other [facility] Work Phone: Start: 06-19-2017 End: 06-19-2017 Patient encounter procedure Appointment [facility] Work Phone: Start: 06-19-2017 End: 06-19-2017 Esophagogastroduodenoscopy transoral diagnostic Upper gastrointestinal endoscopy [facility] [employer] Work Phone: Start: 06-19-2017 End: 06-19-2017 Follow Up Appt Other Follow Up Appt Other [facility] [employer] Work Phone: Start: 06-14-2017 End: 06-14-2017 Follow Up Appt 3 months Follow Up Appt 3 months [facility] Work Phone: Start: 06-14-2017 End: 06-14-2017 Follow Up Appt 6 months Follow Up Appt 6 months [facility] Work Phone: Start: 06-14-2017 End: 06-14-2017 Pacer Clinic Pacer Clinic [facility] Work Phone: Start: 06-14-2017 End: 06-14-2017 PFM PFM [facility] Work Phone: Start: 06-14-2017 End: 06-14-2017 Patient encounter procedure Appointment [facility] Work Phone: Start: 06-14-2017 End: 06-14-2017 Follow Up Appt 3 months Follow Up Appt 3 months [facility] Work Phone: Start: 06-14-2017 End: 06-14-2017 Follow Up Appt 6 months Follow Up Appt 6 months [facility] Work Phone: Start: 06-14-2017 End: 06-14-2017 Pacer Clinic [facility] Work Phone: Start: 06-14-2017 End: 06-14-2017 PFM PFM [facility] Work Phone: Start: 06-05-2017 [...] 05-15-2017 End: 05-15-2017 Patient encounter procedure Appointment [facility] [place] [facility] Work Phone: Start: 05-15-2017 End: 05-28-2017 Follow Up Appt Other Follow Up Appt Other [facility] Work Phone: Start: 05-01-2017 End: 05-01-2017 Patient encounter procedure Appointment [facility] [place] [facility] Work Phone: Start: 04-03-2017 End: 04-03-2017 Surgery Referral Surgery Referral Lowell Otero MD, [facility], [address] [place] [address], [place], [address] [facility] Work Phone: Start: 04-03-2017 End: 05-24-2017 Admission to same day surgery center Surgery Referral Lowell Otero MD, [facility], [address] [place] [address], [facility] [address], [place], [address] [facility] Work Phone: Start: 12-14-2016 End: 12-14-2016 Device Interrogation Device Interrogation [facility] Work Phone: Start: 12-14-2016 End: 06-06-2017 Follow Up Appt 3 months Follow Up Appt 3 months [facility] Work Phone: Start: 12-14-2016 End: 12-14-2016 Follow Up Appt 6 months Follow Up Appt 6 months [facility] Work Phone: Start: 12-14-2016 End: 12-14-2016 MMM MMM [facility] Work Phone: Start: 12-14-2016 End: 06-06-2017 Pacer Clinic [facility] Work Phone: Start: 12-14-2016 End: 12-14-2016 Device Interrogation Device Interrogation [facility] Work Phone: Start: 12-14-2016 End: 06-06-2017 Follow Up Appt 3 months Follow Up Appt 3 months [facility] Work Phone: Start: 12-14-2016 End: 12-14-2016 Follow Up Appt 6 months Follow Up Appt 6 months [facility] Work Phone: Start: 12-14-2016 End: 12-14-2016 MMM MMM [facility] Work Phone: Start: 12-14-2016 End: 06-06-2017 Pacer Clinic [facility] Work Phone: Start: 09-05-2016 End: 12-14-2016 Follow Up Appt 3 months Follow Up Appt 3 months [facility] Work Phone: Start: 09-05-2016 End: 09-05-2016 Follow Up Appt Other Follow Up Appt Other [facility] Work Phone: Start: 09-05-2016 End: 12-14-2016 Pacer Clinic [facility] Work Phone: Start: 09-05-2016 End: 12-14-2016 Follow Up Appt 3 months Follow Up Appt 3 months [facility] Work Phone: Start: 09-05-2016 End: 09-05-2016 Follow Up Appt Other Follow Up Appt Other [facility] Work Phone: Start: 09-05-2016 End: 12-14-2016 Pacer Clinic [facility] Work Phone: Start: 06-01-2016 End: 08-22-2016 Follow Up Appt 3 months Follow Up Appt 3 months [facility] Work Phone: Start: 06-01-2016 End: 06-01-2016 Follow Up Appt 6 months Follow Up Appt 6 months [facility] Work Phone: Start: 06-01-2016 End: 06-01-2016 MMM MMM [facility] Work Phone: Start: 06-01-2016 End: 06-01-2016 Nuclear stress test -Lexiscan Nuclear stress test -Lexiscan [facility] Work Phone: Start: 06-01-2016 End: 08-22-2016 Pacer Clinic Pacer Clinic [facility] Work Phone: Start: 06-01-2016 End: 06-01-2016 PFM PFM [facility] Work Phone: Start: 06-01-2016 End: 08-22-2016 Follow Up Appt 3 months Follow Up Appt 3 months [facility] Work Phone: Start: 06-01-2016 End: 06-01-2016 Follow Up Appt 6 months Follow Up Appt 6 months [facility] Work Phone: Start: 06-01-2016 End: 06-01-2016 MMM MMM [facility] Work Phone: Start: 06-01-2016 End: 06-01-2016 Nuclear stress test -Lexiscan Nuclear stress test -Lexiscan [facility] Work Phone: Start: 06-01-2016 End: 08-22-2016 Pacer Clinic Pacer Clinic [facility] Work Phone: Start: 06-01-2016 End: 06-01-2016 PFM PFM [facility] Work Phone: Start: 02-28-2016 End: 05-18-2016 Follow Up Appt 3 months Follow Up Appt 3 months [facility] Work Phone: Start: 02-28-2016 End: 05-18-2016 Pacer Clinic [facility] Work Phone: Start: 02-28-2016 End: 05-18-2016 Follow Up Appt 3 months Follow Up Appt 3 months [facility] Work Phone: Start: 02-28-2016 End: 05-18-2016 Pacer Clinic Pacer Clinic [facility] Work Phone: Start: 11-30-2015 End: 11-30-2015 Device Interrogation Device Interrogation [facility] Work Phone: Start: 11-30-2015 End: 11-30-2015 Echocardiography Echocardiogram (complete) [facility] Work Phone: Start: 11-30-2015 End: 05-18-2016 Follow Up Appt 3 months Follow Up Appt 3 months [facility] Work Phone: Start: 11-30-2015 End: [...] 3 months Follow Up Appt 3 months [facility] Work Phone: Start: 11-30-2015 End: 11-30-2015 Follow Up Appt 6 months Follow Up Appt 6 months [facility] Work Phone: Start: 11-30-2015 End: 11-30-2015 MMM MMM [facility] Work Phone: Start: 11-30-2015 End: 05-18-[facility] Work Phone: Start: 08-17-2015 End: 08-17-2015 *CBC with Differential *CBC with Differential [facility] Work Phone: Start: 08-17-2015 End: 05-18-2016 Follow Up Appt 3 months Follow Up Appt 3 months [facility] Work Phone: Start: 08-17-2015 End: 05-18-2016 [facility] Work Phone: Start: 08-17-2015 End: 08-17-2015 CBC W Auto Differential panel - Blood *CBC with Differential [facility] Work Phone: Start: 08-17-2015 End: 05-18-2016 Follow Up Appt 3 months Follow Up Appt 3 months [facility] Work Phone: Start: 08-17-2015 End: 05-18-2016 [facility] Work Phone: Start: 08-03-2015 End: 08-03-2015 Follow Up Appt 3 months Follow Up Appt 3 months [facility] Work Phone: Start: 08-03-2015 End: 08-03-2015 PFM PFM [facility] Work Phone: Start: 08-03-2015 End: 08-03-2015 Follow Up Appt 3 months Follow Up Appt 3 months [facility] Work Phone: Start: 08-03-2015 End: 08-03-2015 PFM PFM [facility] Work Phone: Start: 05-12-2015 End: 07-20-2015 Follow Up Appt 3 months Follow Up Appt 3 months [facility] Work Phone: Start: 05-12-2015 End: 07-20-2015 Pacer Clinic [facility] Work Phone: Start: 05-12-2015 End: 07-20-2015 Follow Up Appt 3 months Follow Up Appt 3 months [facility] Work Phone: Start: 05-12-2015 End: 07-20-2015 Pacer Clinic [facility] Work Phone: Start: 05-04-2015 End: 07-20-2015 *BMP *BMP [facility] Work Phone: Start: 05-04-2015 End: 07-20-2015 Follow Up Appt 3 months Follow Up Appt 3 months [facility] Work Phone: Start: 05-04-2015 End: 07-20-2015 MMM MMM [facility] Work Phone: Start: 05-04-2015 End: 07-20-2015 Basic metabolic 2000 panel - Serum or Plasma *BMP [facility] Work Phone: Start: 05-04-2015 End: 07-20-2015 Follow Up Appt 3 months Follow Up Appt 3 months [facility] Work Phone: Start: 05-04-2015 End: 07-20-2015 MMM MMM [facility] Work Phone: Start: 05-02-2015 End: 05-03-2015 *BMP *BMP [facility] Work Phone: Start: 05-02-2015 End: 05-03-2015 Basic metabolic 2000 panel - Serum or Plasma *BMP [facility] Work Phone: Start: 2015 RSV Immunization aged 60 or older (1 - 1-dose 60+ series) RSV Immunization aged 60 or older (1 - 1-dose 60+ series) [facility] Start: 03-30-2015 End: 07-20-2015 Follow Up Appt Other Follow Up Appt Other [facility] Work Phone: Start: 03-30-2015 End: 07-20-2015 Follow Up Appt Other Follow Up Appt Other [facility] Work Phone: Start: 03-16-2015 End: 03-25-2015 *BMP *BMP [facility] Work Phone: Start: 03-16-2015 End: 03-25-2015 *CBC with Differential *CBC with Differential [facility] Work Phone: Start: 03-16-2015 End: 03-25-2015 BNP *Brain Natriuretic Peptide BNP [facility] Work Phone: Start: 03-16-2015 End: 03-16-2015 Follow up Appt 3 weeks Follow up Appt 3 weeks [facility] Work Phone: Start: 03-16-2015 End: 03-16-2015 MMM MMM [facility] Work Phone: Start: 03-16-2015 End: 03-25-2015 Basic metabolic 2000 panel - Serum or Plasma *BMP [facility] Work Phone: Start: 03-16-2015 End: 03-25-2015 CBC W Auto Differential panel - Blood *CBC with Differential [facility] Work Phone: Start: 03-16-2015 End: 03-16-2015 Follow up Appt 3 weeks Follow up Appt 3 weeks [facility] Work Phone: Start: 03-16-2015 End: 03-16-2015 MMM MMM [facility] Work Phone: Start: 03-16-2015 End: 03-25-2015 Natriuretic peptide B [Mass/volume] in Blood *Brain Natriuretic Peptide BNP [facility] Work Phone: Start: 03-11-2015 End: 03-11-2015 *BMP *BMP [facility] Work Phone: Start: 03-11-2015 End: 03-11-2015 Basic metabolic 2000 panel - Serum or Plasma *BMP [facility] Work Phone: Start: 03-07-2015 End: 03-07-2015 Follow Up Appt Other Follow Up Appt Other [facility] Work Phone: Start: 03-07-2015 End: 03-07-2015 Follow Up Appt Other Follow Up Appt Other [facility] Work Phone: Start: 01-10-2015 End: 01-10-2015 *BMP *BMP [facility] Work Phone: Start: 01-10-2015 End: 01-10-2015 *CBC with Differential *CBC with Differential [facility] Work Phone: Start: 01-10-2015 End: 01-10-2015 Follow Up Appt 3 months Follow Up Appt 3 months [facility] Work Phone: Start: 01-10-2015 End: 01-10-2015 Magnesium *Magnesium [facility] Work Phone: Start: 01-10-2015 End: 01-10-2015 Pacer Clinic Pacer Clinic [facility] Work Phone: Start: 01-10-2015 End: 01-10-2015 PFM PFM [facility] Work Phone: Start: 01-10-2015 End: 01-10-2015 Thyroid stimulating hormone (TSH) *TSH [facility] Work Phone: Start: 01-10-2015 End: 01-10-2015 Basic metabolic 2000 panel - Serum or Plasma *BMP [facility] Work Phone: Start: 01-10-2015 End: 01-10-2015 CBC W Auto Differential panel - Blood *CBC with Differential [facility] Work Phone: Start: 01-10-2015 End: 01-10-2015 Follow Up Appt 3 months Follow Up Appt 3 months [facility] Work Phone: Start: 01-10-2015 End: 01-10-2015 Magnesium [Mass/volume] in Serum or Plasma *Magnesium [facility] Work Phone: Start: 01-10-2015 End: 01-10-2015 Pacer Clinic Pacer Clinic [facility] Work Phone: Start: 01-10-2015 End: 01-10-2015 PFM PFM [facility] Work Phone: Start: 01-10-2015 End: 01-10-2015 Thyrotropin [Units/volume] in Serum or Plasma *TSH [facility] Work Phone: Start: 12-03-2014 End: 01-10-2015 Follow Up Appt 3 months Follow Up Appt 3 months [facility] Work Phone: Start: 12-03-2014 End: 01-10-2015 Pacer Clinic Pacer Clinic [facility] Work Phone: Start: 12-03-2014 End: 01-10-2015 Follow Up Appt 3 months Follow Up Appt 3 months [facility] Work Phone: Start: 12-03-2014 End: 01-10-2015 Pacer Clinic Pacer [facility] Work Phone: Start: 08-19-2014 End: 01-10-2015 Follow Up Appt 3 months Follow Up Appt 3 months [facility] Work Phone: Start: 08-19-2014 End: 01-10-2015 Pacer Clinic Pacer Clinic [facility] Work Phone: Start: 08-19-2014 End: 01-10-2015 Follow Up Appt 3 months Follow Up Appt 3 months [facility] Work Phone: Start: 08-19-2014 End: 01-10-2015 Pacer Clinic [facility] Work Phone: Start: 07-16-2014 End: 07-16-2014 Ecg routine ecg w/least 12 lds w/i&r EKG (In office) [facility] Work Phone: Start: 07-16-2014 End: 07-16-2014 Follow Up Appt 6 months Follow Up Appt 6 months [facility] Work Phone: Start: 07-16-2014 End: 07-16-2014 PFM PFM [facility] Work Phone: Start: 07-16-2014 End: 07-16-2014 Ecg routine ecg w/least 12 lds w/i&r EKG (In office) [facility] Work Phone: Start: 07-16-2014 End: 07-16-2014 Follow Up Appt 6 months Follow Up Appt 6 months [facility] Work Phone: Start: 07-16-2014 End: 07-16-2014 PFM PF [facility] Work Phone: Start: 05-14-2014 End: 01-10-2015 Follow Up Appt 3 months Follow Up Appt 3 months [facility] Work Phone: Start: 05-14-2014 End: 01-10-2015 Pacer Clinic Pacer Clinic [facility] Work Phone: Start: 05-14-2014 End: 01-10-2015 Follow Up Appt 3 months Follow Up Appt 3 months [facility] Work Phone: Start: 05-14-2014 End: 01-10-2015 Pacer Clinic Pacer Clinic [facility] Work Phone: Start: 02-25-2014 End: 03-07-2015 External Counterpulsation Therapy External Counterpulsation Therapy [address] [place] [address], [address], [address] [facility] Work Phone: Start: 02-25-2014 End: 02-25-2014 Us abdominal real time w/image limited US Abdominal (aneurysm screening) [facility] Work Phone: Start: 02-25-2014 End: 03-07-2015 External Counterpulsation Therapy External Counterpulsation Therapy [address] [facility], [address], [place], [address] [facility] Work Phone: Start: 02-25-2014 End: 02-25-2014 Us abdominal real time w/image limited US Abdominal (aneurysm screening) [facility] Work Phone: Start: 02-05-2014 End: 01-10-2015 Follow Up Appt 3 months Follow Up Appt 3 months [facility] Work Phone: Start: 02-05-2014 End: 01-10-2015 Pacer Clinic Pacer Clinic [facility] Work Phone: Start: 02-05-2014 End: 01-10-2015 Follow Up Appt 3 months Follow Up Appt 3 months [facility] Work Phone: Start: 02-05-2014 End: 01-10-2015 Pacer Clinic Pacer Clinic [facility] Work Phone: Start: 01-07-2014 End: 01-07-2014 Follow Up Appt 6 months Follow Up Appt 6 months [facility] Work Phone: Start: 01-07-2014 End: 01-07-2014 PFM PF [facility] Work Phone: Start: 01-07-2014 End: 01-07-2014 Follow Up Appt 6 months Follow Up Appt 6 months [facility] Work Phone: Start: 01-07-2014 End: 01-07-2014 PFM PFM [facility] Work Phone: Start: 11-06-2013 End: 01-10-2015 Cardiac Rehab Cardiac Rehab [facility] Work Phone: Start: 11-06-2013 End: 11-09-2013 Cardiovascular stress test using treadmill Treadmill stress test (no imaging) [facility] Work Phone: Start: 11-06-2013 End: 01-10-2015 Follow Up Appt 3 months Follow Up Appt 3 months [facility] Work Phone: Start: 11-06-2013 End: 01-10-2015 Pacer Clinic Pacer Clinic [facility] Work Phone: Start: 11-06-2013 End: [...] 01-10-2015 *Hepatic Function Panel *Hepatic Function Panel [facility] Work Phone: Start: 11-01-2013 End: 01-10-2015 Lipid panel [AGGREGATE] *Lipid Profile CC PCP [facility] Work Phone: Start: 11-01-2013 End: 01-10-2015 Hepatic function 2000 panel - Serum or Plasma *Hepatic Function Panel [facility] Work Phone: Start: 11-01-2013 End: 01-10-2015 Lipid 1996 panel - Serum or Plasma *Lipid Profile CC PCP [facility] Work Phone: Start: 10-28-2013 End: 10-28-2013 Follow Up Appt Other Follow Up Appt Other [facility] Work Phone: Start: 10-28-2013 End: 10-28-2013 Follow Up Appt Other Follow Up Appt Other [facility] Work Phone: Start: 10-16-2013 End: 10-28-2013 *BMP *BMP [facility] Work Phone: Start: 10-16-2013 End: 10-28-2013 aPTT *PTT-Partial Thromboplastin Time [facility] Work Phone: Start: 10-16-2013 End: [...] End: 10-28-2013 INR Coag RelTime (PPP) *PT/INR [facility] Work Phone: Start: 10-16-2013 End: 10-09-2013 Left Heart Cath W/Grafts Left Heart Cath W/Grafts [facility] Work Phone: Start: 10-16-2013 End: 10-28-2013 aPTT in Platelet poor plasma by Coagulation assay *PTT-Partial Thromboplastin Time [facility] Work Phone: Start: 10-16-2013 End: 10-28-2013 Basic metabolic 2000 panel - Serum or Plasma *BMP [facility] Work Phone: Start: 10-16-2013 End: 10-28-2013 CBC W Auto Differential panel - Blood *CBC without Diff [facility] Work Phone: Start: 10-16-2013 End: 10-28-2013 Chest x-ray X-Ray, Chest, PA & Lateral [facility] Work Phone: Start: 10-16-2013 End: 10-28-2013 Ecg routine ecg w/least 12 lds w/i&r EKG (In office) [facility] Work Phone: Start: 10-16-2013 End: 10-28-2013 INR in Platelet poor plasma by Coagulation assay *PT/INR [facility] Work Phone: Start: 10-16-2013 End: 10-09-2013 Left Heart Cath W/Grafts Left Heart Cath W/Grafts [facility] Work Phone: Start: 10-07-2013 End: 10-28-2013 Follow Up Appt Other Follow Up Appt Other [facility] Work Phone: Start: 10-07-2013 End: 10-28-2013 MMM MMM [facility] Work Phone: Start: 10-07-2013 End: 10-28-2013 Follow Up Appt Other Follow Up Appt Other [facility] Work Phone: Start: 10-07-2013 End: 10-28-2013 MMM MMM [facility] Work Phone: Start: 08-26-2013 End: 10-28-2013 Follow Up Appt 3 months Follow Up Appt 3 months [facility] Work Phone: Start: 08-26-2013 End: 10-28-2013 Pacer Clinic Pacer Clinic [facility] Work Phone: Start: 08-26-2013 End: 10-28-2013 Follow Up Appt 3 months Follow Up Appt 3 months [facility] Work Phone: Start: 08-26-2013 End: [...] 08-05-2013 End: 08-06-2013 Pacer Clinic Pacer Clinic [facility] Work Phone: Start: 08-05-2013 End: 08-06-2013 Follow Up Appt 3 months Follow Up Appt 3 months [facility] Work Phone: Start: 08-05-2013 End: 08-06-2013 Pacer Clinic Pacer [facility] Work Phone: Start: 07-01-2013 End: 07-24-2013 Follow Up Appt 1 month Follow Up Appt 1 month [facility] Work Phone: Start: 07-01-2013 End: 07-24-2013 MMM MMM [facility] Work Phone: Start: 07-01-2013 End: 07-24-2013 Follow Up Appt 1 month Follow Up Appt 1 month [facility] Work Phone: Start: 07-01-2013 End: 07-24-2013 MMM MMM [facility] Work Phone: Start: 05-05-2013 End: 06-03-2013 Follow Up Appt 3 months Follow Up Appt 3 months [facility] Work Phone: Start: 05-05-2013 End: 06-03-2013 Pacer Clinic Pacer Clinic [facility] Work Phone: Start: 05-05-2013 End: 06-03-2013 Follow Up Appt 3 months Follow Up Appt 3 months [facility] Work Phone: Start: 05-05-2013 End: 06-03-2013 Pacer Clinic Pacer Clinic [facility] Work Phone: Start: 04-22-2013 End: 05-08-2013 *Hepatic Function Panel *Hepatic Function Panel [facility] Work Phone: Start: 04-22-2013 End: 05-08-2013 Lipid panel [AGGREGATE] *Lipid Profile [facility] Work Phone: Start: 04-22-2013 End: 05-08-2013 Hepatic function 2000 panel - Serum or Plasma *Hepatic Function Panel [facility] Work Phone: Start: 04-22-2013 End: 05-08-2013 Lipid 1996 panel - Serum or Plasma *Lipid Profile [facility] Work Phone: Start: 04-20-2013 End: [...] w/least 12 lds w/i&r EKG (In office) [facility] Work Phone: Start: 04-20-2013 End: 04-21-2013 Echocardiography Echocardiogram (complete) [facility] Work Phone: Start: 04-20-2013 End: 04-21-2013 Follow Up Appt 6 months Follow Up Appt 6 months [facility] Work Phone: Start: 04-20-2013 End: 04-21-2013 PFM PFM [facility] Work Phone: Start: 10-30-2012 End: 04-21-2013 Follow Up Appt 6 months Follow Up Appt 6 months [facility] Work Phone: Start: 10-30-2012 End: 04-21-2013 Follow Up Appt 6 months Follow Up Appt 6 months [facility] Work Phone: Start: 09-03-2012 End: 04-21-2013 *BMP *BMP [facility] Work Phone: Start: 09-03-2012 End: 04-21-2013 *Hepatic Function Panel *Hepatic Function Panel [facility] Work Phone: Start: 09-03-2012 End: 04-21-2013 Lipid panel [AGGREGATE] *Lipid Profile [facility] Work Phone: Start: 09-03-2012 End: 04-21-2013 Magnesium *Magnesium [facility] Work Phone: Start: 09-03-2012 End: 04-21-2013 Basic metabolic 2000 panel - Serum or Plasma *BMP [facility] Work Phone: Start: 09-03-2012 End: 04-21-2013 Hepatic function 2000 panel - Serum or Plasma *Hepatic Function Panel [facility] Work Phone: Start: 09-03-2012 End: 04-21-2013 Lipid 1996 panel - Serum or Plasma *Lipid Profile [facility] Work Phone: Start: 09-03-2012 End: 04-21-2013 Magnesium [Mass/volume] in Serum or Plasma *Magnesium [facility] Work Phone: Start: 04-17-2012 End: 04-18-2012 [facility], [address] [place] [address], [id number] [facility] Work Phone: Start: 04-17-2012 End: 04-17-2012 Follow Up Appt 6 months Follow Up Appt 6 months [facility] Work Phone: Start: 04-17-2012 End: 04-17-2012 Follow Up Appt 6 months Follow Up Appt 6 months [facility] Work Phone: Start: 04-17-2012 End: 04-18-2012 Patient encounter procedure [facility], [address] [place] [address], [id number] [facility] Work Phone: Start: 03-05-2012 End: [...] panel - Serum or Plasma *Lipid Profile [facility] Work Phone: Start: 12-10-2011 End: 12-10-2011 Follow Up Appt Other Follow Up Appt Other [facility] Work Phone: Start: 12-10-2011 End: 12-10-2011 Follow Up Appt Other Follow Up Appt Other [facility] Work Phone: Start: 08-28-2011 Pneumococcal Vaccine: 65+ Years (2 - PCV) Pneumococcal Vaccine: 65+ Years (2 - PCV) [facility] Start: 08-28-2011 Pneumococcal Vaccine: 65+ Years (2 of 2 - PCV) Pneumococcal Vaccine: 65+ Years (2 of 2 - PCV) [facility] Start: 2005 Prostate specific antigen measurement PROSTATE CANCER SCREENING DISCUSSION [facility] Start: 2005 Screening for malignant neoplasm of colon Colon cancer screen colonoscopy [facility] Work Phone: Start: 2005 Shingles Vaccine (1 of 2) Shingles Vaccine (1 of 2) [facility] Work Phone: Start: 2000 Screening for malignant neoplasm of colon COLORECTAL CANCER SCREENING DISCUSSION [facility] Start: 1995 Diabetes screen Diabetes screen [facility] Work Phone: Start: 1995 Lipid panel LIPID SCREENING [facility] Start: 1973 Diabetes mellitus screening Diabetes Screening [facility] Start: 1973 Hepatitis C screening Hepatitis C Screening [facility] Start: 1967 Depression Screening Depression Screening [facility] Start: 1965 Lipid panel Lipid screen [facility] Work Phone: Start: 1955 Abdominal aortic aneurysm screening AAA screen [facility] Work Phone: Start: 1955 Echocardiography Echocardiogram [facility] Start: 1955 Hepatitis B Vaccines (1 of 3 - 3-dose series) Hepatitis B Vaccines (1 of 3 - 3-dose series) [facility] Start: 1955 Hepatitis C screening [facility] Start: 1955 Medicare Advantage Annual Wellness Visit (AWV) Medicare Advantage Annual Wellness Visit (AWV) [facility] Start: 1955 Screening for malignant neoplasm of colon [facility] Alanine aminotransfe rase [Enzymatic activity/volume] in Serum or Plasma [facility] Aspartate aminotrans ferase [Enzymatic activity/volume] in Serum or Plasma [facility] AUTOPAP AutoPAP Respirat ory Care Routine QHS until discontinued starting 05/25/2021 [facility] Work Phone: Comment on above: QHS until discontinued starting 05/25/20 Comprehensive metabo lic 2000 panel - Serum or Plasma [facility] Electrophysiology study EP PROCE DURE - EPS/ABLATION/DEVICE Electrophysiology Routine ICD (implantable cardioverter-defibrill ator) battery depletion 01/06/2024 1:36 PM EST [facility] End: 05-24-2021 FL Greater Than 1 Hour FL Greater Than 1 Hour Imaging Routine Once for 1 Occurrences starting 05/24/2021 until 05/24/2021 [facility] Work Phone: Comment on above: Once for 1 Occurrences starting 05/24/20 21 until 05/24/2021 FL Greater Than 1 Hour FL Greate r Than 1 Hour Imaging Routine 05/24/2021 2:20 PM EDT [facility] Work Phone: End: 01-06-2024 Interrogation of cardiac pacemaker PACEMAKER/ICD INTERROGATION Cardiac Services Routine One Time for 1 Occurrences starting 01/06/2024 until 01/06/2024 [facility] Comment on above: One Time for 1 Occurrences starting 04/2024 until 01/06/2024 Lipid 1996 panel - S silvana or Plasma [facility] Lipid 1995 panel - S silvana or Plasma [facility] NM Heart Views W str ess and W radionuclide IV [facility] Oxygen therapy [[facility] Data Set] Initiate Oxygen Therapy Protocol Respiratory Care Routine Daily until discontinued starting 05/24/2021 [employer] Work Phone: Comment on above: Daily until discontinued starting 2020 Patient Education [facility] Work Phone: Patient referral [facility] Work Phone: Troponin T.cardiac [Mass/volume] in Serum or Plasma by High sensitivity method [facility] US Heart [facility] VL DUP LOWER EXTREMI TY VENOUS BILATERAL VL DUP LOWER EXTREMITY VENOUS BILATERAL Imaging Routine Every Mo,Th until discontinued starting 05/29/2021, 1 completed [facility] Work Phone: Comment on above: Every Mo,Th until discontinued starting 05/29/2021, 1 completed Immunizations Immunization Date Immunization Notes Care Provider [facility] 09-04-2022 influenza virus vaccine, unspecified formulation Kel Nielsen MD Work Phone: [facility] [employer] 01-17-2021 Covid (Moderna) Dr. Speedy mckeon Work Phone: [facility] 12-21-2020 Covid (Moderna) Dr. Speedy mckeon Work Phone: [facility] 10-02-[address] Speedy Boswell Work Phone: [facility] 05-27-2014 tetanus toxoid, reduced diphtheria toxoid, and acellular pertussis vaccine, adsorbed Dr. Speedy Boswell Work Phone: [facility] 09-01-[address] Speedy Boswell Work Phone: [facility] 02-13-[address] Veronica Boswell Work Phone: [facility] Work Phone: 02-13-2005 pneumococcal vaccine , unspecified formulation Dr. Speedy Boswell Work Phone: [facility] Payers Date Payer Category Payer Self-pay [id number] 2023 Medicare [id number] 2023 Unknown [id number] 2022 Medicare [id number] 2021 Medicare [id number] 2020 Medicare [id number] 2020 Unknown [id number] 2010 Private Health Insurance [id number] 1955 Unknown [id number] 1955 Unknown [id number] 1955 Unknown [id number] 94 1955 Unknown [id number] 2.16.840.1.524544.3.579.2.5 94 1955 Unknown [id number] 2.16.840.1.333165.3.579.2.5 94 Medicare [id number] Private Health [facility] 18 [id number] Unknown [id number] 2.16.840.1.371691.3.579.2.4 62 Unknown [id number] 2.16.840.1.272180.3.579.2.4 62 Unknown [id number] 2.16.840.1.533944.3.579.2.4 62 Unknown [id number] 2.16.840.1.329936.3.579.2.4 62 Unknown [id number] 2.16.840.1.155225.3.579.2.4 62 Unknown [id number] 2.16.840.1.964614.3.579.2.4 62 Unknown [id number] 2.16.840.1.691025.3.579.2.4 62 Unknown [id number] 2.16.840.1.494877.3.579.2.4 62 Unknown [id number] 2.16.840.1.217413.3.579.2.4 62 Unknown [id number] 2.16.840.1.672883.3.579.2.4 62 Unknown [id number] 2.16.840.1.653885.3.579.2.4 62 Unknown [id number] 2.16.840.1.235165.3.579.2.4 62 Unknown [id number] 2.16.840.1.306297.3.579.2.4 62 Unknown [id number] 2.16.840.1.752068.3.579.2.4 62 Unknown [id number] 2.16.840.1.718528.3.579.2.4 62 Unknown [id number] 2.16.840.1.839248.3.579.2.4 62 Unknown [id number] 2.16.840.1.337516.3.579.2.4 62 Unknown [id number] 2.16.840.1.061896.3.579.2.4 62 Unknown [id number] 2.16.840.1.456804.3.579.2.4 62 Unknown [id number] 2.16.840.1.924596.3.579.2.4 62 Unknown [id number] 2.16.840.1.480274.3.579.2.4 62 Unknown [id number] 2.16.840.1.835008.3.579.2.4 62 Unknown [id number] 2.16.840.1.969560.3.579.2.4 62 Social History Date Type Detail Facility Start: 05-25-2021 End: 05-09-2025 Tobacco smoking status WYIS Former sm[facility] Work Phone: End: 12-02-1980 History of tobacco use Current smoker [facility] End: 12-02-1980 History of tobacco use Cigarette Smoker [facility] Start: 05-25-2021 End: 02-11-2023 Cigarettes smoked current (pack per day) - Reported [facility] Work Phone: Start: 05-25-2021 End: 02-11-2023 Tobacco use and exposure Current user [facility] History of tobacco use Chews Tobacco [facility] Start: 05-25-2021 End: 02-11-2023 Alcohol intake Current drinker of alcohol (finding) [facility] Work Phone: Start: 05-04-2019 Alcohol Comment 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 Start: 02-18-2021 [facility] Start: 02-18-2021 [facility] Start: 04-06-2021 Non-smoker [facility] Start: 1955 Sex Assigned At Male [facility] Start: 03-18-2015 End: 08-26-2023 Tobacco use panel [facility] Start: 02-04-2023 Gender identity Identifies as male gender (finding) [facility] Start: 02-04-2023 Sexual orientation Heterosexual (fin ding) [facility] Medical Equipment Procedure Code Equipment Code [...] FDA Star t: 08-05-2019 Defibrillator Cr d [id number] Fortify Asr Parylene 2 - [id number] Start: 01-06-2024 Lead Pacing 52cm 6fr Endocardium Tendril Sts Bipolar Active - [id number] Start: 01-06-2024 SUTURE,2 FIBERLINK FDA Start: [...] Assessment Result Facility 05-09-2025 Cognitive function Voice/Name Natalie [facility] Work Phone: Clinical Notes 08-02-2010 to 06-24-2025 Note Date & Type Note Facility 06-24-2025 Progress note [facility] 06-24-2025 Progress note Note Date/Time June 24, 2025 3:15pm [facility] [place] [address] OFFICE VISIT Date of Service: 06/24/25 MR#: [id number] Acct: [id number] Name: ALBIN ISSA Rep #: [id number] : 1955 Provider: Dr. Rich Anguiano MD Age/Sex: 70/M Location: [facility] Status: Signed Intake Vital Signs 05/09/25 00:02 [...] (gastroesophageal reflux disease) Atherosclerotic heart disease of [place] coronary artery without angina pectoris Shortness of breath History of 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 watermaster use of drug Ischemic cardiomyopathy (~10/30/23) Atherosclerosis [...] I Coding Level of Care Code Attention Winch Runner Diagnoses De Quervain's disease (radial styloid tenosynovitis) M65.4 Comment 56318 and cpt inject thumb tendon x 2 [...] fallen in the past year?: No 06/24/25 8307 <Electronically signed by Jm pollock MD> Date _ Jm Anguiano MD Cosigner Signature: Date (if applicable) CC: ~ [facility] [employer] [facility] Work Phone: 1(579) 736-727906-11-2025 Radiology Diagnostic study note [facility] Imaging Services [address] [place], [place] [address] CTA Chest W/WO Contrast MR#: [id number] Acct: [id number] Name: ALBIN ISSA Rep #: [id number] : 1955 M 70 From: Madiha Kirk MD PCP: Dr. Speedy Boswell MD Status: PORFIRIO VIDAL Study:CTA Chest W/WO Contrast Date of Exam: 05/12/25 Exam# [id number] Ordering Dr: Speedy Boswell MD PROCEDURE: CTA [...] lobar branches. No focal consolidations. Reading Location: [facility] CC: Dr. Speedy Boswell MD ~ Assembler Brazer: Signed [facility]06-08-2025 Radiology Diagnostic study note [facility] Imaging Services [address] [place] [address] Chest PA and Lateral MR#: [id number] Acct: [id number] Name: ALBIN ISSA Rep #: [id number] : 1955 M 70 From: Sherif Kolb MD PCP: Dr. Speedy Boswell MD Status: REG E R Study:Chest PA and Lateral Date of Exam: 05/09/25 Exam# [id number] Ordering Dr: Kenneth Redmond DO PROCEDURE: CHEST [...] mild central pulmonary venous congestion. Reading Location: [place] [address] CC: Dr. Speedy Boswell MD; Dr. Kenneth Redmond DO ~ Assembler Brazer: Signed [facility]06-02-2025 Evaluation note* Diagnosis Onset Date Resolution Status Admit Date CAD (coronary artery disease) chroni c May 03, 2025 2:00pm Essential hypertension chronic Ju 2024 2:00pm ICD (implantable cardioverter-defibrillator) in place August, chronic May 03, 2025 2:00pm Ischemic cardiomyopathy October, chronic May 03, 2025 2:00pm Mixed hyperlipidemia chronic May 03, 2025 2:00pm Obesity (BMI 30-39.9) chronic Sly e 2024 2:00pm [facility] Work Phone: 1(339) 297-411506-02-2025 Evaluation note* Diagnosis Onset Date Resolution Status Admit Date CAD (coronary artery disease) chronic May 03, 2025 2:00pm Essential hypertension chronic Ju 2024 2:00pm ICD (implantable cardioverter-defibrillator) in place August,May 03, 2025 2:00pm Ischemic cardiomyopathy October,May 03, 2025 2:00pm Mixed hyperlipidemia chronic May 03, 2025 2:00pm Obesity (BMI 30-39.9) chronic May 2:00pm De Quervain's disease (radial styloid tenosynovitis) noneactive June 24, 2025 2:33pm [facility] Work Phone: 1(905) 913-365706-02-2025 Evaluation note* Diagnosis Onset Date Resolution Status Admit Date CAD (coronary artery disease) chronic May 03, 2025 2:00pm Essential hypertension chronic Ju 2024 2:00pm ICD (implantable cardioverter-defibrillator) in place August,May 03, 2025 2:00pm Ischemic cardiomyopathy October,May 03, 2025 2:00pm Mixed hyperlipidemia chronic May 03, 2025 2:00pm Obesity (BMI 30-39.9) chronic May 2:00pm De Quervain's disease (radial styloid tenosynovitis) noneactive June 24, 2025 2:33pm CAD (coronary artery disease) chronic July 19 2:35pm Essential hypertension chronic Au marcin 2024 2:35pm ICD (implantable cardioverter-defibrillator) in place August, chronic July 19 2:35pm Ischemic cardiomyopathy October, chronic July 19, 2025 2:35pm Mixed hyperlipidemia chronic Augu st 2024 2:35pm Obesity (BMI 30-39.9) chronic Jul ust 2024 2:35pm [facility] Work Phone: 1(332) 580-729206-02-2025 Progress [facility] [address] [place], [place] [id number] OFFICE VISIT Date of Service: 05/03/25 MR#: [id number] Acct: [id number] Name: ALBIN ISSA Rep #: [id number] : 1955 Provider: Dr. Fernando Foster MD Age/Sex: 70/M Location: [facility] Status: Signed HPI HPI History of Present [...] without angina pectoris Atherosclerotic heart disease of [place] coronary artery without angina pectoris Automatic implantable [...] epicondylitis of left elbow Left elbow pain care home use of drug Lymphedema of Right Leg [...] apical infarct. There is mild global hypokinesis. [place] is dyskinetic. The reported LVEF is 46%. [...] 3. Left main coronary artery: A. Proximal [place] band without angiographically significant appearing disease 4. [...] the LAD receives predominant flow via the [place] system 8. Free SARIAH arising from the [...] Artery/Lesion type: unspecified vessel or lesion type Citizen [place] vs. transplanted heart: unspecified whether [place] or transplanted heart Associated angina: angina presence unspecified Qualified Code(s): I25.10 - Atherosclerotic heart disease of [place] coronary artery without angina pectoris Plan: Status [...] unspecified, unspecified vessel or lesion type,unspecified whether [place] or transplanted heart I25.10 Coronary Disease-Associated Artery/Lesion type: unspecified vessel or lesion type [place] vs. transplanted heart: unspecified whether [place] or transplanted heart Associated angina: angina presence unspecified Ischemic cardiomyopathy I25.5 ICD (implantable cardioverter-defibrillator) in place Z95.810 Mixed hyperlipidemia E78.2 Essential hypertension I10 Obesity (BMI 30-39.9) E66.9 Coding Level of Care Code Off vis,est,level 4 Diagnoses Atherosclerosis of coronary artery, angina presence unspecified, unspecified vessel or lesion type,unspecified whether [place] or transplanted heart I25.10 Coronary Disease-Associated Artery/Lesion type: unspecified vessel or lesion type [place] vs. transplanted heart: unspecified whether [place] or transplanted heart Associated angina: angina presence unspecified Ischemic cardiomyopathy I25.5 ICD (implantable cardioverter-defibrillator) in place Z95.810 Mixed hyperlipidemia E78.2 Essential hypertension I10 Obesity (BMI 30-39.9) E66.9 Clinical Quality Measures Falls Risk Screening/Assistive Devices Have you fallen in the past year?: No Cardiac Ejection fraction %: 40 05/03/25 1424 > Date _ Delilah Foster MD Cosigner Signature: Date (if applicable) CC: Dr. Speedy Boswell MD ~ [facility]06-02-2025 Progress note Author Delilah Foster [facility] Note Date/Time May 03, 2025 2:24p [place] [facility] [address] [place], [place] [address] OFFICE VISIT Date of Service: 05/03/25 MR#: [id number] Acct: [id number] Name: ALBIN ISSA Rep #: [id number] : 1955 Provider: Dr. Fernando Foster MD Age/Sex: 70/M Location: [facility] Status: Signed HPI HPI History of Present [...] without angina pectoris Atherosclerotic heart disease of [place] coronary artery without angina pectoris Automatic implantable [...] epicondylitis of left elbow Left elbow pain watermaster use of drug Lymphedema of Right Leg [...] apical infarct. There is mild global hypokinesis. [place] is dyskinetic. The reported LVEF is 46%. [...] 3. Left main coronary artery: A. Proximal [place] band without angiographically significant appearing disease 4. [...] the LAD receives predominant flow via the [place] system 8. Free SARIAH arising from the [...] Artery/Lesion type: unspecified vessel or lesion type [place] vs. transplanted heart: unspecified whether [place] or transplanted heart Associated angina: angina presence unspecified Qualified Code(s): I25.10 - Atherosclerotic heart disease of [place] coronary artery without angina pectoris Plan: Status [...] unspecified vessel or lesion type, unspecified whether [place] or transplanted heart I25.10 Coronary Disease-Associated Artery/Lesion type: unspecified vessel or lesion type [place] vs. transplanted heart: unspecified whether [place] or transplanted heart Associated angina: angina presence unspecified Ischemic cardiomyopathy I25.5 ICD (implantable cardioverter-defibrillator) in place Z95.810 Mixed hyperlipidemia E78.2 Essential hypertension I10 Obesity (BMI 30-39.9) E66.9 Coding Level of Care Code Off vis,est,level 4 Diagnoses Atherosclerosis of coronary artery, angina presence unspecified, unspecified vessel or lesion type, unspecified whether [place] or transplanted heart I25.10 Coronary Disease-Associated Artery/Lesion type: unspecified vessel or lesion type [place] vs. transplanted heart: unspecified whether [place] or transplanted heart Associated angina: angina presence unspecified Ischemic cardiomyopathy I25.5 ICD (implantable cardioverter-defibrillator) in place Z95.810 Mixed hyperlipidemia E78.2 Essential hypertension I10 Obesity (BMI 30-39.9) E66.9 Clinical Quality Measures Falls Risk Screening/Assistive Devices Have you fallen in the past year?: No Cardiac Ejection fraction %: 40 05/03/25 1424 <Electronically signed by Delilah Foster MD> Date _ Delilah Foster MD Cosigner Signature: Date (if applicable) CC: Dr. Speedy Boswell MD ~ [facility] Work Phone: 1(652) 850-944712-18-2024 [facility] Medical Records Department [address] [place] [address] History Physical Exam 11/18/24 0717 MR#: [id number] Acct: [id number] Name: ALBIN ISSA Rep #: [id number] : 1955 69 From: Ravi Holder MD PCP: Dr. Speedy Boswell MD Status:REG [facility] Location: [place] [address] HPI - General General Date of Service: [...] treated, plan to do laser of stones. [facility] Medical History (Updated 11/05/24 @ 15:21 [...] (gastroesophageal reflux disease) Atherosclerotic heart disease of [place] coronary artery without angina pectoris Shortness of breath History of 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 care home use of drug Ischemic cardiomyopathy ( 10/30/23) [...] implantable cardiac defibrillator (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 [facility]04-29-2024 History of Present illness Narrative* Kel Nielsen MD - 03/30/2024 2:00 PM EDT Images from the original note were not included. [facility] [address] [facility] [address] Dept: [phone] Dept Chief Complaint Patient presents with Follow-up [...] to signing but 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 documented in this [facility]04-29-2024 Instructions* Patient Instructions* Kel Nielsen MD - [...] call theoffice as soon as possible at [phone] documented in this [facility]02-06-2024 Hospital course Narrative* SHEILA Hilton - 01/07/2024 8:06 AM EST Discharge Summary Name: Albin Issa Age: 68 y.o. Birthday: 1955 Admit Date: 01/06/2024 7:01 AM Discharge Date: 01/07/2024 Discharge Time: 0800 Discharge Unit: [facility] 36 Admission Information Admitting Physician: David Ramirez MD Discharge Information Discharge Provider: Rosio Douglass CNP Problem List Active Hospital Problems Diagnosis Pacemaker lead malfunction Resolved Hospital Problems No resolved problems to display. Brief Summary of Hospital Course for Discharge Summary: Albin Issa is a 68 y.o. male with ICM s/p [facility] DC ICD, CAD s/p OR 2004, s/p CABG 2004, s/p right AKA amputation, HLD. He was evaluated in EP clinic on 11/21/2023 for consultation. He reported occasional dyspnea on exertion. Upon device evaluation on 11/21/2023, it revealed atrial lead noise and battery at [place]. On 11/21/2023, he underwent a venogram revealing [...] s/p [facility] ICD, CAD s/p OR 2004, s/p CABG 2004, s/p right AKA amputation, HLD.He was evaluated in EP clinic on 11/21/2023 for consultation. He reported occasional dyspnea on exertion. Upon device evaluation on 11/21/2023, it revealed atrial lead noise and battery at [place]. He underwent successful placement of additional RA lead. Device generator exchanged. Excellent lead parameters. IV Vancomycin is utilized because: Physician/FISCAL SERVICES MANAGER/PA or pharmacist documentation of increased MRSA rate, [...] No follow-up provider specified. [facility] Discharge instructions* Discharge Instr - [...] Where can you learn more? Go to https://[email or web address].net/osumychart. * Discharge Instr - Wound Care* SHEILA [...] during body movement. [facility] NoteIMPRESSION: Limited evaluation. No acute pulmonary finding. Cardiomegaly. RADIOLOGY 01-06-2024 History and physical note* SHEILA Hilton - 01/06/2024 7:13 AM EST Images from the original note were not included. Chief Complaint Dyspnea on exertion HPI Albin Issa is a 68 y.o. male with ICM s/p [facility] ICD, CAD s/p OR 2004, s/p CABG 2004, s/p right AKA amputation, HLD. He was evaluated in EP clinic on 11/21/2023 for consultation. He reported occasional dyspnea on exertion. Upon device evaluation on 11/21/2023, it revealed atrial lead noise and battery at [place]. On 11/21/2023, he underwent a venogram revealing [...] and impedance measurements are appropriate. AP 41%. 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 Device is programmed DDD at 60 bpm. Since last evaluation 09/10/2023, counters reveal no arrhythmia events. Since 11/10/2023, there have been 48 atrial noise events noted. Patient explains that this has been a current issue and due to battery status at [place], patient is here at [facility] for evaluation of new device and atrial lead extractionand replacement. Isometrics completed, and able to reproduce noise on the atrial lead. The battery status at [place] with voltage of 2.45V (JESSICA is 2.45V). Changes made to the device today: None. All findings given to Dr Ramirez and EP fellow. Patient follows at [facility]. Addendum: per order of Dr [...] and capping of existing lead. -Arrived in [facility] since 1900 -OK to proceed pending lab [...] as addended by me. David Ramirez MD01/06/2024 [facility]02-05-2024 History and physical note* Rosio Douglass APRN-FURNACE UTILITY OPERATOR - 01/06/2024 7:13 AM EST Images from the original note were not included. Chief Complaint Dyspnea on exertion HPI Albin Issa is a 68 y.o. male with ICM s/p [facility] ICD, CAD s/p OR 2004, s/p CABG 2004, s/p right AKA amputation, HLD. He was evaluated in EP clinic on 11/21/2023 for consultation. He reported occasional dyspnea on exertion. Upon device evaluation on 11/21/2023, it revealed atrial lead noise and battery at [place]. On 11/21/2023, he underwent a venogram revealing [...] and impedance measurements are appropriate. AP 41%. 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 Device is programmed DDD at 60 bpm. Since last evaluation 09/10/2023, counters reveal no arrhythmia events. Since 11/10/2023, there have been 48 atrial noise events noted. Patient explains that this has been a current issue and due to battery status at [place], patient is here at [facility] for evaluation of new device and atrial lead extractionand replacement. Isometrics completed, and able to reproduce noise on the atrial lead. The battery status at [place] with voltage of 2.45V (JESSICA is 2.45V). Changes made to the device today: None. All findings given to Dr Ramirez and EP fellow. Patient follows at [facility]. Addendum: per order of Dr [...] and capping of existing lead. -Arrived in [facility] since 1900 -OK to proceed pending lab [...] me. David Ramirez MD01/06/2024 [facility] History of Present illness Narrative* Kel Nielsen MD - 08/26/2023 3:15 PM EDT Images from the original note were not included. [facility] [address] [place] [address] Dept: [phone] Dept Chief Complaint Patient presents with Follow-up [...] to signing but 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 documented in this [facility]09-25-2023 Instructions* Patient Instructions* Kel Nielsen MD - [...] call theoffice as soon as possible at [phone] documented in this [facility]03-13-2023 History of Present illness Narrative* Kel Nielsen MD - 02/11/2023 3:20 PM EDT Images from the original note were not included. [facility] [address] [facility] [address] Dept: [phone] Dept Chief Complaint Patient presents with Injection [...] to signing but 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 documented in this [facility]03-13-2023 Instructions* Patient Instructions* Kel Nielsen MD - [...] call theoffice as soon as possible at [phone] documented in this [facility]07-01-2021 History of Present illness Narrative* Kenan Jacobsen, RN - 06/01/2021 1:16 AM EDT Pt discharged to [place] manner via Don Judi on a cot. Pt verified to have all belongings and IV removed. * Agnieszka Longoria RCP - 05/31/2021 10:52 PM EDT [facility] Department Progress Note Patient was [...] Longoria RCP - 05/30/2021 9:15 PM EDT [facility] Department Progress Note Patient was [...] be monitored and followed by the diet desktop support technician. * Sd Moreno PA-C - 05/29/2021 [...] 05/29/2021 3:12 PM EDT Physical Therapy Facility/Department: [facility] TELEMETRY Daily Treatment Note NAME: Albin Issa [...] LLE x 10 reps G-Code OutComes Score [facility] Score [facility] Inpatient Mobility Raw Score : 8 (05/29/211513) [facility] Inpatient T-Scale Score : 28.52 (05/29/211513) Mobility [...] off at this time. Please page resident construction mgr with any questions or concerns. Rafy Gloria MD Orthopaedic Surgery PGY-1 *[phone] * Hamilton Mckinnon APRN - NP - [...] happened the patient was bending down to coal picker a delivery box when his Rolatorgot [...] mg 40 mg Oral BID MARISELA Balderrama SPRAY DRIER 40 mg at 05/27/211753 enoxaparin (LOVENOX) injection 30 mg 30 mg Subcutaneous BID Stephanie Ying APRN Fede KEYSHA 30 mg at 05/27/212008 atorvastatin (LIPITOR) tablet 40 mg 40 mg Oral Nightly MIKA Del Cid-C 40 mg at 05/27/212007 buPROPion (WELLBUTRIN SR) extended release tablet 150 mg 150 mg Oral BID Sd Moreno PA-C 150 mgat 05/27/212008 carvedilol (COREG) tablet 3.125 mg 3.125 mg Oral BID WC Sd Moreno PA-C 3.125 mg at 05/27/211753 clopidogrel (PLAVIX) tablet 75 mg 75 mg [...] Renny Biswas MD 0.5 mg at 05/25/21 8939 ARE THERE PERTINENT UPDATES TO PAST,FAMILY, OR [...] Date 05/28/21 0000 - 05/28/21 2359 Shift 3537-2587 3103-7789 5843-2325 24 Hour Total INTAKE P.O. 200 200 Shift Total(mL/kg) 200(1.6) 200(1.6) OUTPUT Urine(mL/kg/hr) 800 800 Shift Total(mL/kg) 800(6.3) 800(6.3) Weight (kg) 126.1 126.1 126.1 126.1 Last BM: CAR SPOTTER Diet: Reg CVP: No Chest Tubes: R: [...] Radiology ACCESSION EXAM DATE/TIME PROCEDURE ORDERING PROVIDER [id number] 05/24/2021 17:43 EDT CR Humerus 2+ Views [id number] MORENO CPT code 67660 Reason For Exam (CR Humerus 2+ Views [...] Radiology ACCESSION EXAM DATE/TIME PROCEDURE ORDERING PROVIDER [id number] 05/24/2021 05:59 EDT CR Elbow 3+ Views Left MD FONTANA ALEX CPT code 61698 Reason For Exam (CR Elbow 3+ Views [...] Radiology ACCESSION EXAM DATE/TIME PROCEDURE ORDERING PROVIDER [id number] 05/24/2021 05:59 EDT CR Chest 1 View Frontal MD FONTANA ALEX CPT code 12543 Reason For Exam (CR Chest 1 View [...] (HCC) 05/29/2021 Yes I personally supervised the TRAFFIC SUPERVISOR/ROMEL in the evaluation and development of a [...] updated when appropriate and possible. 66[facility] fx pmhx of [...] MD Division of Trauma Department of Surgery [facility] Pager: [phone] ~~~~~~~~~~~~~~~~~~~~~~~~~~~~~~~~~~~~~~~~~~~~~~~~~~~~~~~~~~~~~ This note may have been dictated using C[employer] Medical Practice Edition 2.6 and/or Formarum Voice Recognition Feature. The document was proofread; however, unrecognized voice recognition oyster washer errors may be present. * Ruma Ahuja, CAR SPOTTER - 05/27/2021 12:30 PM EDT Physical Therapy Facility/Department: [facility] TELEMETRY Daily Treatment Note NAME: Albin Issa [...] Worked on standing posture and placing RUE stock patcher on center handle of hemiwalker and keeping LUE tucked to abdomen. Exercises Hip Flexion: LLE x 10 reps Knee Long Arc Quad: LLE x 10 reps Ankle Pumps: LLE x 10 reps Comments: all while seated in recliner AM-PAC Score [facility] Inpatient Mobility Raw Score : 8 (05/27/21 123) [facility] Inpatient T-Scale Score : 28.52 (05/27/21 [facility]) Mobility Inpatient CMS 0-100% Score: 86.62 (05/27/21 [facility]) Mobility Inpatient [facility] G-Code Modifier : CM (05/27/21 [facility]) Goals Short term goals Time Frame for [...] happened the patient was bending down to coal picker a delivery box when his Rolatorgot [...] BID Sd Moreno PA-C 150 mgat 05/26/21 2209 carvedilol (COREG) tablet 3.125 mg 3.125 mg Oral BID WC Sd Moreno PA-C 3.125 mg at 05/26/21 1611 clopidogrel (PLAVIX) tablet 75 mg 75 mg Oral Daily Sd Moreno PA-C 75 mg at 05/26/21950 escitalopram (LEXAPRO) tablet 20 mg 20 mg Oral Daily MIKA Del Cid-C 20 mg at 05/26/21951 gabapentin (NEURONTIN) capsule 300 mg 300 mg Oral Nightly Sd Moreno PA-C 300 mg at 05/26/212200 isosorbide mononitrate (IMDUR) extended release tablet 60 mg 60 mg Oral BID MIKA Del Cid-C 60 mg at 05/26/212201 cetirizine (ZYRTEC) tablet 10 mg 10 mg Oral Daily Sd Moreno PA-C 10 mg at 05/26/21 1021 [Held by provider] meloxicam (MOBIC) tablet 15 mg 15 mg Oral Daily Sd Moreno PA-C niacin (NIASPAN) extended release tablet 1,000 mg 1,000 mg Oral Nightly MIKA Del Cid-C 1,000 mg at 05/26/212213 potassium chloride (KLOR-CON M) extended release tablet 40 mEq 40 mEq Oral Daily MIKA Del Cid-C 40 mEq at 05/26/21951 ramipril (ALTACE) capsule 2.5 mg 2.5 mg Oral Daily MIKA Del Cid-C 2.5 mg at 05/26/21 102 ranolazine (RANEXA) extended release tablet 1,000 mg 1,000 mg Oral BID Sd Moreno PA-C 1,000 mgat 05/26/212201 sodium chloride flush 0.9 % injection 5-40 mL 5-40 mL Intravenous 2 times per day MIKA Del Cid-C 5 mL at 05/26/21 1002 sodium chloride [...] Date 05/27/21 0000 - 05/27/21 2359 Shift 2339-0790 0618-9707 4590-7446 24 Hour Total INTAKE P.O. 350 350 Shift Total(mL/kg) 350(2.8) 350(2.8) OUTPUT Urine(mL/kg/hr) 750 750 Shift Total(mL/kg) 750(5.9) 750(5.9) Weight (kg) 126.1 126.1 126.1 126.1 Last BM: CAR SPOTTER Diet: Reg CVP: No Chest Tubes: R: [...] Radiology ACCESSION EXAM DATE/TIME PROCEDURE ORDERING PROVIDER [id number] 05/24/2021 17:43 EDT CR Humerus 2+ Views [id number] -SD MORENO CPT code 75164 Reason For Exam (CR Humerus 2+ Views [...] Radiology ACCESSION EXAM DATE/TIME PROCEDURE ORDERING PROVIDER [id number] 05/24/2021 05:59 EDT CR Elbow 3+ Views Left MD FONTANA ALEX CPT code 67891 Reason For Exam (CR Elbow 3+ Views [...] Result Date: 05/24/2021 Patient Name: ALBIN ISSA [facility]#: [id number] Diagnostic Radiology ACCESSION EXAM DATE/TIME PROCEDURE ORDERING PROVIDER [id number] 05/24/2021 05:59 EDT CR Chest 1 View Frontal MD FONTANA ALEX CPT code 67728 Reason For Exam (CR Chest 1 View [...] pain 05/25/2021 Yes I personally supervised the TRAFFIC SUPERVISOR/ROMEL in the evaluation and development of a [...] MD Division of Trauma Department of Surgery [facility] Pager: [phone] ~~~~~~~~~~~~~~~~~~~~~~~~~~~~~~~~~~~~~~~~~~~~~~~~~~~~~~~~~~~~~ This note may have been dictated using C[employer] Medical Practice Edition 2.6 and/or Formarum Voice Recognition Feature. The document was proofread; however, unrecognized voice recognition oyster washer errors may be present. * Arabella Dai, CAR SPOTTER - 05/26/2021 1:30 PM EDT Physical Therapy Facility/Department: [facility] TELEMETRY Daily Treatment Note NAME: Albin Issa [...] Mobility Inpatient CMS G-Code Modifier : CL (06/25/21 1332) Goals Short term goals Time Frame for [...] facility policy used during session* Arabella Dai CAR SPOTTER * Sd Moreno PA-C - 05/26/2021 9:45 [...] 05/26/2021 9:14 AM EDT Occupational Therapy Facility/Department: [facility] TELEMETRY Daily Treatment Note NAME: Albin Issa [...] Cognition Comment: Pt. continues to insists that cleared him to use his [...] [place]ISH Ter[place] * Hamilton Mckinnon APRN - NP - 05/26/2021 6:56 AM EDT Images from the original note were not included. Daily Trauma Progress Note Nurse Practitioner 05/26/2021 6:57 AM Admit Date: 05/23/2021 Post Trauma Day 3 Fall SH HISTORY OF TRAUMATIC EVENT: 66 y.o. male status post fall from standing. The incident happened around afternoon on 05/23/21 at home. When the event happened the patient was bending down to coal picker a delivery box when his Rolatorgot [...] Nightly MIKA Del Cid-C 40 mg at 05/25/212099 buPROPion (WELLBUTRIN SR) extended release tablet 150 mg 150 mg Oral BID MIKA Del Cid-C 150 mgat 05/25/212112 carvedilol (COREG) tablet 3.125 mg 3.125 mg Oral BID WC MIKA Del Cid-C 3.125 mg at 05/25/21 174 clopidogrel (PLAVIX) tablet 75 mg 75 mg Oral Daily MIKA Del Cid-C 75 mg at 05/25/21 0907 escitalopram (LEXAPRO) tablet 20 mg 20 mg Oral Daily MIKA Del Cid-C 20 mg at 05/25/21 0755 furosemide (LASIX) tablet 80 mg 80 mg Oral Nightly MIKA Del Cid-C 80 mg at 05/25/212099 gabapentin (NEURONTIN) capsule 300 mg 300 mg Oral Nightly JANICE Del CidC 300 mg at 05/25/212099 isosorbide mononitrate (IMDUR) extended release tablet 60 mg 60 mg Oral BID JANICE Del CidC 60 mg at 05/25/212099 cetirizine (ZYRTEC) tablet 10 mg 10 mg Oral Daily Sd Moreno PA-C 10 mg at 05/25/21 075 [Held by provider] meloxicam (MOBIC) tablet 15 mg 15 mg Oral Daily Sd Moreno PA-C niacin (NIASPAN) extended release tablet 1,000 mg 1,000 mg Oral Nightly Sd Moreno PA-C 1,000 mg at 05/25/212100 potassium chloride (KLOR-CON M) extended release tablet 40 mEq 40 mEq Oral Daily Sd Moreno PA-C 40 mEq at 05/25/21 075 ramipril (ALTACE) capsule 2.5 mg 2.5 mg Oral Daily Sd Moreno PA-C 2.5 mg at 05/25/21 09 ranolazine (RANEXA) extended release tablet 1,000 mg 1,000 mg Oral BID Sd Moreno PA-C 1,000 mgat 05/25/212099 sodium chloride flush 0.9 % injection 5-40 mL 5-40 mL Intravenous 2 times per day Sd Moreno PA-C 10 mL at 05/25/212113 sodium chloride flush 0.9 % injection 5-40 mL 5-40 mL Intravenous PRN Sd Moreno PA-C 0.9 % sodium chloride infusion 25 mL Intravenous PRN Sd Moreno PA-C acetaminophen (TYLENOL) tablet 1,000 mg 1,000 mg Oral 3 times per day Sd Moreno PA-C 1,000 mg at 05/26/21 050 oxyCODONE (ROXICODONE) [...] Daily MIKA Del Cid-C 81 mg at 05/25/21 0755 senna (SENOKOT) tablet 8.6 mg 1 tablet Oral Nightly SdMIKA Knott-C 8.6 mg at 05/25/21 2100 polyethylene glycol (GLYCOLAX) packet 17 g 17 g Oral Daily MIKA Del Cid-C 17 g at 05/25/21 0754 docusate sodium (COLACE) capsule 100 mg 100 mg Oral BID MIKA Del Cid-C 100 mg at 05/25/21 0754 LORazepam (ATIVAN) tablet 0.5 mg 0.5 mg Oral Nightly PRN Renny Biswas MD 0.5 mg at 05/25/21 8756 ARE THERE PERTINENT UPDATES TO PAST,FAMILY, OR [...] Date 05/26/21 0000 - 05/26/21 2359 Shift 6297-4958 6054-6445 9460-3653 24 Hour Total INTAKE Shift Total(mL/kg) OUTPUT Urine(mL/kg/hr) 800 800 Shift Total(mL/kg) 800(6.3) 800(6.3) Weight (kg) 126.1 126.1 126.1 126.1 Last BM: CAR SPOTTER Diet: Reg CVP: No Chest Tubes: R: [...] Radiology ACCESSION EXAM DATE/TIME PROCEDURE ORDERING PROVIDER [id number] 05/24/2021 17:43 EDT CR Humerus 2+ Views [id number] -SD MORENO CPT code 81693 Reason For Exam (CR Humerus 2+ Views [...] Radiology ACCESSION EXAM DATE/TIME PROCEDURE ORDERING PROVIDER [id number] 05/24/2021 05:59 EDT CR Elbow 3+ Views Left MD FONTANA ALEX CPT code 53271 Reason For Exam (CR Elbow 3+ Views [...] Radiology ACCESSION EXAM DATE/TIME PROCEDURE ORDERING PROVIDER [id number] 05/24/2021 05:59 EDT CR Chest 1 View Frontal MD FONTANA ALEX CPT code 34486 Reason For Exam (CR Chest 1 View [...] pain 05/25/2021 Yes I personally supervised the TRAFFIC SUPERVISOR/MIKA-C in the evaluation and development of a [...] MD Division of Trauma Department of Surgery [facility] Pager: [phone] ~~~~~~~~~~~~~~~~~~~~~~~~~~~~~~~~~~~~~~~~~~~~~~~~~~~~~~~~~~~~~ This note may have been dictated using [employer] Medical Practice Edition 2.6 and/or Formarum Voice Recognition Feature. The document was proofread; however, unrecognized voice recognition oyster washer errors may be present. * Carol Ascencio MD - 05/26/2021 6:34 AM EDT Images from the original note were not included. [facility] H6 TELEMETRY [address] [facility] [address] Dept: [phone] Loc: [phone] Orthopedic Progress Note Name: Albin Issa Date:05/26/2021 Attending:oRni Figueroa MD Subjective Pain controlled. No issues [...] distally LUE Strength LUE Strength Comment: 3/5 stock patcher RUE Strength RUE Strength Comment: 3-/5 shoulder, 4/5 stock patcher Plan Plan Times per week: 5 Plan weeks: 4 Current Treatment Recommendations: Strengthening, Gait Training, Patient/Caregiver Education & Training, Equipment Evaluation, Education, & procurement, ROM, Balance Training, Functional Mobility Training, Endurance Training, Safety Education & Training, Self-Care / ADL, Pain Management, Stair training OutComes Score [facility] Daily Activity Inpatient How much help [...] How much help for eating meals?: None [facility] Inpatient Daily Activity Raw Score: 16 [facility] Inpatient ADL T-Scale Score : 35.96 ADL [...] Plan of Care [facility]. Pt requires skill of 2 therapists for safety and positioning. Avni Jones, S/OT * Maria L Jeffers, PT - 05/25/2021 11:07 AM EDT Physical Therapy Facility/Department: [facility] TELEMETRY Initial Assessment NAME: Albin Issa : [...] Patient lying in bed upon arrival, nursing project coordinator finishing assessing vitals. Patient pleasant and agreeable [...] place: No G-Code OutComes Score AM-PAC Score [facility] Inpatient Mobility Raw Score : 8 (05/25/21 1107) [facility] Inpatient T-Scale Score : 28.52 (05/25/21 1107) Mobility Inpatient CMS 0-100% Score: 86.62 (05/25/21 1107) Mobility Inpatient [facility] G-Code Modifier : CM (05/25/21 110) Goals [...] Plan of Care supervision is transferred to [facility] Rehab Department Physical Therapist. * Kacy Soto DTR - 05/25/2021 8:40 AM EDT Nutrition rescreen completed. Chart reviewed. Patient to be monitored and followed by the diet desktop support technician. * Stephanie Ying APRN - KEYSHA [...] happened the patient was bending down to coal picker a delivery box when his Rolatorgot [...] WC Sd Moreno PA-C 3.125 mg at 05/24/21 09 [Held by provider] clopidogrel (PLAVIX) tablet 75 mg 75 mg Oral Daily Sd Josh, PA-C escitalopram (LEXAPRO) tablet 20 mg 20 [...] BID Sd Moreno PA-C 60 mg at 05/24/212203 cetirizine (ZYRTEC) tablet 10 mg 10 mg Oral Daily MIKA Del Cid-C 10 mg at 05/24/21930 [Held by provider] meloxicam (MOBIC) tablet 15 mg 15 mg Oral Daily Sd Moreno PA-C niacin (NIASPAN) extended release tablet 1,000 mg 1,000 mg Oral Nightly JANICE Del CidC potassium chloride (KLOR-CON M) extended release tablet 40 mEq 40 mEq Oral Daily Sd Moreno PA-C 40 mEq at 05/24/21930 ramipril (ALTACE) capsule 2.5 mg 2.5 mg Oral Daily MIKA Del Cid-C 2.5 mg at 05/24/21940 ranolazine (RANEXA) extended [...] day Sd Moreno PA-C 1,000 mg at 06/23/21 2205 oxyCODONE (ROXICODONE) immediate release tablet 5 mg 5 mg Oral Q4H PRN Sd Moreno PA-C Or oxyCODONE (ROXICODONE) immediate release tablet 10 mg 10 mg Oral Q4H PRN MIKA Del Cid-C 10 mg at 05/24/212204 HYDROmorphone (DILAUDID) injection 0.25 mg 0.25 mg Intravenous Q3H PRN MIKA Del Cid-C Or HYDROmorphone (DILAUDID) injection 0.5 mg 0.5 mg Intravenous Q3H PRN MIKA Del Cid-C ondansetron (ZOFRAN) injection 4 mg 4 mg [...] BID MIKA Del Cid-C 100 mg at 05/24/21 2204 ceFAZolin (ANCEF) 3,000 mg in dextrose 5 [...] Temporal 63 18 97 % Last BM: CAR SPOTTER Diet: Reg CVP: No Chest Tubes: R: [...] Radiology ACCESSION EXAM DATE/TIME PROCEDURE ORDERING PROVIDER [id number] 05/24/2021 17:43 EDT CR Humerus 2+ Views [id number] CPT code 43394 Reason For Exam (CR Humerus 2+ Views [...] Dictated: 05/24/2021 5:44 pm Dictating Physician: MD RJOAS DIANE Signed Date and Time: 05/24/2021 5:46 pm Signed by: MD ROJAS DIANE Transcribed Date and Time: 05/24/2021 5:44 XR ELBOW LEFT (MIN 3 VIEWS) Result Date: 05/24/2021 Patient Name: ALBIN ISSA Diagnostic Radiology ACCESSION EXAM DATE/TIME PROCEDURE ORDERING PROVIDER [id number] 05/24/2021 05:59 EDT CR Elbow 3+ Views Left MD FONTANA ALEX CPT code 23093 Reason For Exam (CR Elbow 3+ Views [...] Radiology ACCESSION EXAM DATE/TIME PROCEDURE ORDERING PROVIDER [id number] 05/24/2021 05:59 EDT CR Chest 1 View Frontal MD FONTANA ALEX CPT code 73526 Reason For Exam (CR Chest 1 View [...] cardiomyopathy 05/25/2021 Yes I personally supervised the TRAFFIC SUPERVISOR/ROMEL in the evaluation and development of a [...] MD Division of Trauma Department of Surgery [facility] Pager: [phone] ~~~~~~~~~~~~~~~~~~~~~~~~~~~~~~~~~~~~~~~~~~~~~~~~~~~~~~~~~~~~~ This note may have been dictated using C[employer]ogen Medical Practice Edition 2.6 and/or Formarum Voice Recognition Feature. The document was proofread; however, unrecognized voice recognition oyster washer errors may be present. * Carol Ascencio MD - 05/25/2021 6:15 AM EDT Images from the original note were not included. [place] [address] TELEMETRY [address] [place] [address] Dept: [phone] Loc: [phone] Orthopedic Progress Note Name: Albin Issa Date:05/25/2021 [...] EDT Patient to be transported back to [facility]. Telephone report given to JUANCHO Wells with [...] eGFR 88.3 >60 mL/min EGFR IF NonAfrican Portuguese 76.2 >60 mL/min Calcium 9.3 8.4 - [...] # 1.3 1.0 - 4.3 10*3/uL Absolute [place] # 0.5 0.0 - 0.8 10*3/uL Absolute [...] team -Ortho to follow documented in this [facility] Work Phone: 1(768) 285-114406-30-2021 Hospital Discharge instructions* Discharge Instr - Activity* [...] most local grocery stores, pharmacies, and chain [employer]-stores. If you have any questions about your diet or nutrition, call the hospital and ask for the dietitian. Regular diet * Discharge Instr - MICHAELA* Hamilton Mckinnon, TRAFFIC SUPERVISOR - SPRAY DRIER - 05/25/2021 12:30 PM EDT Continuity of [...] BOSWELL MD Discharging Nurse: Discharging Hospital Unit/Room#: [id number] Discharging Unit Phone Number: Emergency Contact: Extended Emergency Contact Information Primary Emergency Contact: Maddy Issa [facility] Relation: Lay Caregiver Past Surgical [...] R AKA wound vac applied PACEMAKER INSERTION 2009 PACEMAKER PLACEMENT pacer/defib PTCA 2005 SHOULDER SURGERY [...] AKA (above knee amputation), right ([facility]) Z89.611 MRSA (methicillin resistant Staphylococcus aureus) [...] MENTAL STATUS::::0} IV Access: { MICHAELA IV ACCESS:768177459:::0} Nursing Mobility/ADLs: Walking {CHP DME ADLs:835466608:::0} Transfer {CHP DME ADLs:086552463:::0} Bathing {CHP DME ADLs:092798839:::0} Dressing {CHP DME ADLs:550813579:::0} Toileting {CHP DME ADLs:311674011:::0} Feeding {CHP DME ADLs:585554000:::0} Compressor Battery Pellets {CHP DME ADLs:180962352:::0} Med Delivery { MICHAELA MED Delivery:381307590:::0} Wound Care Documentation and Therapy: Negative Pressure Wound Therapy Leg Right;Upper (Active) Number of days: 762 Elimination: Continence: Bowel: {YES / NO:} Bladder: {YES / NO:} Urinary Catheter: {Urinary Catheter:903358815:::0} Colostomy/Ileostomy/Ileal Conduit: {YES / NO:} Date of Last BM: No intake or output data in the 24 hours ending 05/25/21 1230 No intake/output data recorded. Safety Concerns: { MICHAELA Safety Concerns:934884163:::0} Impairments/Disabilities: { MICHAELA Impairments/Disabilities:349317897:::0} Nutrition Therapy: Current Nutrition Therapy: { MICHAELA Diet List:657208057:::0} Routes of Feeding: {CHP DME Other Feedings:924114384:::0} Liquids: {[employer] liquid thickness:48098} Daily Fluid Restriction: {CHP DME Yes amt example:679986697:::0} Last Modified Barium Swallow with Video (Video Swallowing Test): {Done Not Done Date:341380456:::0} Treatments at the Time of Hospital Discharge: Respiratory Treatments: Oxygen Therapy: {Therapy; copd oxygen:45218:::0} Ventilator: {[facility] Vent List:102547071:::0} Rehab Therapies: {THERAPEUTIC INTERVENTION:2602935427} Weight Bearing Status/Restrictions: {[facility] Weight Bearin:::0} Other Medical Equipment (for information only, NOT a DME order): {EQUIPMENT:509361992} Other Treatments: Patient's personal belongings (please select all that are sent with patient): {CHP DME Belongings:842580009:::0} RN SIGNATURE: {Esignature:117416177:::0} CASE MANAGEMENT/SOCIAL WORK SECTION Inpatient Status Date: 05-23-21 Readmission Risk Assessment Score: Readmission Risk Risk of Unplanned Readmission: 10 Discharging to Facility/ Agency Name: [facility] Address:[address] [place] [address] Dialysis Facility (if applicable) Name: Address: Dialysis Schedule: Phone: Fax: Teacher Learning Disabled/Dental Surgeon signature: PHYSICIAN SECTION Prognosis: Good Condition at [...] have anyproblems or questions. documented in this [facility] Work Phone: 1(504) 106-978608-02-2017 Fall risk setzaxxjmu6213/08/02[facility]Fall [facility] Work Phone: 1(118) 975-781807-14-2017 Fall risk uxqyizxqkb3470/07/14[facility] NoFall risk assessmentWk[facility] Heart Group Work Phone: 1(804) 882-832406-14-2017 Fall risk mejzwdtrqu4262/06/14[facility] NoFall risk [facility] Infectious Disease Work Phone: 1(760) 538-588405-31-2017 Fall risk tunbbqlyiy3309/05/31[facility]Wk[facility] Infect[facility] Disease Work Phone: 1(774) 388-517609-01-2010 Evaluation note* Diagnosis Onset Date Resolution Status 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 Chronic systolic congestive heart failure chronic Essential hypertension chron ic ICD (implantable cardioverte r-defibrillator) in place August, chronic Ischemic cardiomyopathy compliance mgr leandra Mixed hyperlipidemia chronic Postsurgical aortocoronary bypass status June, chronic Automatic implantable cardio verter-defibrillator in situ chronic Chronic systolic congestive heart failure chronic Ischemic cardiomyopathy [facility] Work Phone: 1(399) 795-179309-01-2010 Evaluation note* Diagnosis Onset Date Resolution Status 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 Chronic systolic congestive heart failure chronic Essential hypertension chron ic ICD (implantable cardioverte r-defibrillator) in place August, chronic Ischemic cardiomyopathy compliance mgr leandra Mixed hyperlipidemia chronic Postsurgical aortocoronary bypass status June, chronic Automatic implantable cardio verter-defibrillator in situ chronic Chronic systolic congestive heart failure chronic Ischemic cardiomyopathy compliance mgr leandra Automatic implantable cardio verter-defibrillator in situ chronic Chronic systolic congestive heart failure chronic ICD (implantable cardioverte r-defibrillator) in place August, chronic Ischemic cardiomyopathy [facility] Work Phone: [phone]) 983-751909-01-2010 Evaluation note* Diagnosis Onset Date Resolution Status Automatic implantable cardio verter-defibrillator in situ chronic Chronic systolic congestive heart failure chronic ICD (implantable cardioverte r-defibrillator) in place August, chronic Ischemic cardiomyopathy [facility] Work Phone: [phone]) 665-489809-01-2010 Evaluation note* Diagnosis Onset Date Resolution Status Automatic implantable cardio verter-defibrillator in situ chronic ICD (implantable cardioverte r-defibrillator) in place August, chronic Ischemic cardiomyopathy [facility] Work Phone: [phone] Evaluation note* Diagnosis Onset Date Resolution Status Chronic systolic congestive heart failure chronic ICD (implantable cardioverte r-defibrillator) in place August, chronic Ischemic cardiomyopathy compliance mgr leandra CAD (coronary artery disease) chronic Essential hypertension chron ic ICD (implantable cardioverte r-defibrillator) in place August, chronic Ischemic cardiomyopathy compliance mgr leandra Mixed hyperlipidemia chronic Obesity (BMI 30-39.9) chroni c [facility] Work Phone: [phone]) 405-729609-01-2010 Evaluation note* Diagnosis Onset Date Resolution Status CAD (coronary artery disease) chronic Essential hypertension chron ic ICD (implantable cardioverte r-defibrillator) in place August, chronic Ischemic cardiomyopathy October, ch ronic Mixed hyperlipidemia chronic Obesity (BMI 30-39.9) chroni c CAD (coronary artery disease) chronic ICD (implantable cardioverte r-defibrillator) in place August, [facility] Work Phone: [phone] Evaluation note* Diagnosis Onset Date Resolution Status CAD (coronary artery disease) chronic ICD (implantable cardioverte r-defibrillator) in place August, [facility] Work Phone: [phone] 439-704609-01-2010 Evaluation note* Diagnosis Onset Date Resolution Status [...] Obesity (BMI 30-39.9) chronic Sly 2024 2:00pm [facility] Work Phone: Evaluation note* Diagnosis Acute traumatic pain- Primary Acute pain due to trauma Closed fracture of lower epiphysis of humerus Closed fracture of unspecified condyle(s) of humerus Left supracondylar humerus fracture, closed, initial encounter Ischemic cardiomyopathy Other specified forms of chronic ischemic heart disease Chronic systolic congestive heart failure (HCC) Chronic systolic heart failure documented in this encounter [facility] Work Phone: Evaluation note* Diagnosis Onset Date Resolution Status Lateral epicondylitis of left elbow acute Left elbow pain acute 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 Chronic systolic congestive heart failure chronic Essential hypertension chron ic ICD (implantable cardioverte r-defibrillator) in place August, chronic Ischemic cardiomyopathy compliance mgr leandra Mixed hyperlipidemia chronic Postsurgical aortocoronary bypass status June, chronic Automatic implantable cardio verter-defibrillator in situ chronic Chronic systolic congestive heart failure chronic Ischemic cardiomyopathy compliance mgr leandra [facility] Work Phone: Evaluation note* Diagnosis Arthritis of left subtalar joint [facility] ICD (implantable cardioverter-defibrillator) battery depletion Pacemaker lead malfunction Mechanical complication due to cardiac pacemaker (electrode) ICD (implantable cardioverter-defibrillator) battery depletion [facility] Arthritis of left subtalar joint [facility] Diagnosis Arthritis of left subtalar joint [facility] Additional Instructions You have a virus. Plenty of fluids and rest. Prednisone as needed for wheezing. Follow-up with your doctor if not improving or return if worse.[facility] Work Phone: Hospital Discharge instructions Additional Instructions Cardiac workup including D-dimer negative. Chest x-ray negative. BNP normal. Continue your home medications. Follow-up with your cardiology team for treatment as plan. You develop recurrent worsening symptoms, return to the ED for reevaluation.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 Expl anation ACP-Advance Directive ACP-Power of Torch Straightener Latest Code Status on File Code Status [...] Will Yes January 15 11:11pm Power of Torch Straightener Yes January 15, 2022 11:11pm Advance Directive Response Recorded Date/ Time Advance Directives No December 31, 2015 6:47pm Living Will Yes January 15 10:11pm Power of Torch Straightener Yes January 15, 2022 10:11pm Advance Directive Response Recorded Date/ Time Name of Medical Power of Torch Straightener DAUGHTER AND S ON October 27, 2022 4:09pm Advance Directives No December 31, 2015 6:47pm Living Will Yes October 27 4:09pm Power of Torch Straightener Yes October 27, 2022 4:09pm Advance Directive Response Recorded Date/ Time Advance Directives No December 31, 2015 7:47pm Living Will Yes October 27 5:09pm Power of Torch Straightener Yes October 27, 2022 5:09pm Latest Code [...] Will Yes October 27 4:09pm Power of Torch Straightener Yes October 27, 2022 4:09pm Advance Directive Response Recorded Date/ Time Living Will Yes October 27 5:09pm Do you have a Healthcare Power of Torch Straightener? Yes October 27, 2022 5:09pm Advance Directives No December 31, 2015 7:47pm Advance Directive Response Recorded Date/ Time Living Will Yes October 27 5:09pm Do you have a Healthcare Power of Torch Straightener? Yes October 27, 2022 5:09pm Do you have a Healthcare Power of Torch Straightener? No May 09, 2025 12:06am Advance Directives No December 31, 2015 7:47pm Advance Directive Response Recorded Date/ Time Do you have a Healthcare Power of Torch Straightener? No May 09, 2025 12:06am Advance Directives No December 31, 2015 7:47pm Chief Complaint and Reason for Visit Chief Complaint flank pain sees JEFFRY@2:30 PRE-OP EORDER- ANKLE EORDER Reason for Visit Atherosclerotic hear t disease of [place] coronary artery without angina pectoris Chronic systolic congestive heart failure Essential hypertension ICD (implantable cardioverter-defibrillator) in place Ischemic cardiomyopathy Mixed hyperlipidemia Postsurgical aortocoronary bypass status Automatic implantable cardioverter-defibrillator in situ Chronic systolic congestive heart failure Ischemic cardiomyopathy Chief Complaint sees JEFFRY@2:30 PRE-OP EORDER- ANKLE EORDER 3 MO CK LT ANKLE OSTEOARTHRITIS Reason for Visit Atherosclerotic hear t disease of [place] coronary artery without angina pectoris Chronic systolic [...] Left elbow pain Atherosclerotic heart disease of [place] coronary artery without angina pectoris Chronic systolic [...] Left elbow pain Atherosclerotic heart disease of [place] coronary artery without angina pectoris Chronic systolic [...] January 25, 2025 1:51pm Ischemic cardiomyopathy January 25, 2 025 1:51pm CAD (coronary artery disease) May 03, [...] styloid te nosynovitis) June 24, 2025 2:33pm Chief Complaint Admit Date 6 M FU May 03, 2025 2:00p m chest pain May 09, 2025 12:01 am PE PROTOCOL May 12, 2025 2:54 pm Pacer Check Remote May 20, 2025 2:00 am CAD ASHD June 10, 2025 6:58 am CAD ASHD June 10, 2025 11:2 1am BILATERAL WRISTS June 24, 2025 2:33 pm 2-4 W FU PER JR July 19, 2025 2: 35pm Reason for Visit Admit Date CAD (coronary artery disease) May 03, 2025 2:00pm Essential hypertension May 03, 2025 2: 00pm ICD (implantable cardioverter-defibrilla tor) in place May 03, 2025 2:00pm Ischemic cardiomyopathy May 03, 2025 2 :00pm Mixed hyperlipidemia May 03, 2025 2:00 pm Obesity (BMI 30-39.9) May 03, 2025 2:0 0pm De Quervain's disease (radial styloid te nosynovitis) June 24, 2025 2:33pm CAD (coronary artery disease) July 2:35pm Essential hypertension July 19, 2025 2:35pm ICD (implantable cardioverter-defibrilla tor) in place July 19, 2025 2:35pm Ischemic cardiomyopathy July 19 2:35pm Mixed hyperlipidemia July 19, 2025 2 :35pm Obesity (BMI 30-39.9) July 19, 2025 2:35pm Reason for Referral Specialty Diagnoses / Procedures Referred By Contac t Referred To Contact Procedures PACEMAKER/ICD INTERROGATION David Ramirez MD [address] [place] [phone] Referral ID Status Reason Start Date Expiration Date V isits Requested Visits Authorized [id number] New Request 01/06/2024 01/30/2025 1 1 Specialty Diagnoses / Procedures Referred By Contac t Referred To Contact Procedures NO PHARMACOLOGICAL DVT PROPHYLAXIS Rosio Douglass, TRAFFIC SUPERVISOR-FURNACE UTILITY OPERATOR [address] [place] [phone] Referral ID Status Reason Start Date Expiration Date V isits Requested Visits Authorized [id number] New Request 01/06/2024 01/30/2025 1 1 Specialty Diagnoses / Procedures Referred By Contac t Referred To Contact Procedures DVT/VTE RISK ASSESSMENT Rosio Douglass, TRAFFIC SUPERVISOR-FURNACE UTILITY OPERATOR [address] [place] [phone] Referral ID Status Reason Start Date Expiration Date V isits Requested Visits Authorized [id number] New Request 01/06/2024 01/30/2025 1 1 Specialty Diagnoses / Procedures Referred By Contac t Referred To Contact Procedures Wilda Green, TRAFFIC SUPERVISOR-FURNACE UTILITY OPERATOR [address] [place], [place] [phone] Referral ID Status Reason Start Date Expiration Date V isits Requested Visits Authorized [id number] New Request 01/06/2024 01/30/2025 1 1 Additional Source Comments (unrecognized sect ion and content) No Status Records FoundNo Status Records FoundNo Status Records FoundNo Status Records FoundNo Status Records FoundNo Status Records FoundNo Status Records Found INFORMATION SOURCE (unrecogn ized section and content) DATE CREATED AUTHOR 04/20/2020 [facility] DATE CREATED AUTHOR AUTHOR'S ORGANIZ ATION 06/02/2021 [facility] [employer] DATE CREATED AUTHOR AUTHOR'S ORGANIZ ATION 06/11/2021 [facility] DATE CREATED AUTHOR AUTHOR'S ORGANIZ ATION 03/09/2022 [facility] ([place]) DATE CREATED AUTHOR AUTHOR'S ORGANIZ ATION 01/16/2024 [facility] DATE CREATED AUTHOR AUTHOR'S ORGANIZ ATION 03/31/2024 [facility] DATE CREATED AUTHOR AUTHOR'S ORGANIZ ATION 07/20/2025 [facility] Ordered Prescriptions (unrec ognized section [...] 0922 (Given - Provider: Haylee Abdullahi RN) 09 (Due) atorvastatin (LIPITOR) tablet 40 mg [...] Husain RN) 0923 (Given - Provider: Haylee Abdullahi RN) 09 (Due) buPROPion (WELLBUTRIN SR) extended release tablet 150 mg 150 mg, Oral, 2 TIMES DAILY, First dose on Sat05/24/21 at 0215, Do not crush or break. 0915 (Given - Provider: Mary Anne Husain RN)2013 (Given - Provider: María Henry RN) 921 (Given - Provider: Haylee Abdullahi RN)1947 (Given - Provider: Kenan Jacobsen RN) 09 (Due)2099 (Due) carvedilol (COREG) tablet 3.125 mg 3.125 mg, Oral, 2 TIMES DAILY WITH MEALS, First dose on Sat05/24/21 at 0800, Administer with food to minimize the risk of orthostatic hypotension 0910 (Given - Provider: Mary Anne Husain RN)162 (Given - Provider: Mary Anne Husain RN) 09 (Given - Provider: Haylee Abdullahi, JUANCHO)175 (Given - Provider: Haylee Abdullahi RN) 0800 (Due)1700 (Due) cetirizine (ZYRTEC) tablet 10 [...] dose (after last modification) on Sat05/30/21 at 2100 2013 (Given - Provider: María [...] RN) 0922 (Given - Provider: Haylee Abdullahi, JUANCHO)1758 (Given - Provider: Haylee Abdullahi RN) 0800 [...] water. 1133 (Given - Provider: Mary Anne Husian RN) meloxicam (MOBIC) tablet 15 mg 15 mg, Oral, DAILY, First dose on Sat05/24/21 at 0900 0900 (Automatically Held) 0900 (Automatically Held) 0900 (Automatically Held) niacin (NIASPAN) extended release tablet 1,000 mg 1,000 mg, Oral, NIGHTLY, First dose on Sat05/24/21 at 2100, Do not crush or break. 2013 (Given - Provider: María Henry RN) 1948 (Given - Provider: Kenan Jacobsen, JUANCHO) 2099 (Due) polyethylene glycol (GLYCOLAX) packet 17 [...] at 0215, Do not crush or break. 09 (Given - Provider: Mary Anne Husain RN)2013 (Given - Provider: María Henry RN) 921 (Given - Provider: Haylee Abdullahi RN)1946 (Given - Provider: Kenan Jacobsen, JUANCHO) 899 (Due)2099 (Due) senna (SENOKOT) tablet 17.2 mg 17.2 mg (2 tablet), Oral, 2 TIMES DAILY, First dose (after last modification) on Sat05/29/21 at 2099 0910 (Given - Provider: Mary Anne Husain [...] JUANCHO)2015 (Given - Provider: María Henry RN) 09 (Given - Provider: Haylee Abdullahi, JUANCHO)1950 (Not Given - Provider: Kenan Jacobsen RN [...] dose on Sat01/06/24 at 2100, Until Discontinued 221 (Given - Provider: Jessie Mccoy RN) carveDILOL [...] dose on Sat01/06/24 at 1600, Until Discontinued 1731 (Given - Provider: Claudia Murray RN) 0844 [...] 1,500 mg, Intravenous, Administer over 1 Hours, CATERING STAFF MEMBER TO PROCEDURE, 1 dose, Starting on Sat01/06/24 at 0000, Until Discontinued, Other, Preoperative antibiotic, Order should be timed for day of procedure. 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 Vancomycin is preferred agent [...] MD Primary Care Provider Active Radha Sanches SPRAY DRIER-C Attending Provider Active [employer] Interface Developer Relationship Specialty Start Date End Date Speedy Boswell MD [address] [place] [phone] PCP - General 01/19/19 Team Status: Inactive [...] Boswell MD Primary Care Provider Active Dr. eDlilah Foster MD Attending Provider , Referring Provider, Other Provider Active Team Status: Active Member Role Status Dates Dr. Speedy Boswell MD Primary Care Provider Active Jeffry Rosado NP, SPRAY DRIER-C Attending Provider Active Team Status: Inactive Member Role Status Dates Dr. Speedy Boswell MD Primary Care Provider Active Dr. Delilah Foster MD Attending Provider, Referring Pr ovider Active Hl[employer] Interface Developer Relationship Specialty Start Date End Date Speedy Boswell MD [address] [place], [place] [phone] PCP - General Family Medicine 11/21/23 Delilah Foster MD [address] [place], [place] [phone] Cardiovascular Disease 09/11/23 Hl7 Interface Developer Relationship Specialty Start Date End Date Speedy Boswell MD [address] [place], [place] [phone] PCP - General Family Medicine 11/21/23 Delilah Foster MD [address] [facility] [address] [place] [address] Cardiovascular Disease 09/11/23 Team Status: Inactive Member [...] Cazares DO Attending Provider, Referring Provider Active Hl7 Interface Developer Relationship Specialty Start Date End Date Speedy Boswell MD [address] [facility] [address] [place] [phone] PCP - General 01/19/19 Hl7 Interface Developer Relationship Specialty Start Date End Date Speedy Boswell MD [address] [facility] [address] [place] [phone] PCP - General 01/19/19 Team Status: Active [...] Active Member Role/Relationship Status Dates Dr. Speedy Bosewll MD Primary Care Provider Active Team Status: [...] June 24, 2025 End: June 24, 2025 Team Status: Inactive Member Role/Relationship Status Dates Dr. Speedy Boswell MD Primary Care Provider Active Start: July 02, 2025 End: July 02, 2025 David Still SPRAY DRIER, SPRAY DRIER-C Attending Provider Active S tart: July 02, 2025 End: July 02, 2025 David Still NP, SPRAY DRIER-C Referring Provider Active S tart: July 02, 2025 End: July 02, 2025 Team Status: Inactive Member Role/Relationship Status Dates Dr. Speedy Boswell MD Primary Care Provider Active Start: July 19, 2025 End: July 19, 2025 Dr. Speedy Boswell MD Referring Provider Active Start: July 19, 2025 End: July 19, 2025 David Still SPRAY DRIER, SPRAY DRIER-C Attending Provider Active S tart: July 19, 2025 End: July 19, 2025 Reason for Visit (unrecogniz ed section and content) Reason Comments Follow-up USG left subtalar haile int injection Specialty Diagnoses / Procedures Referred By Contac t Referred To Contact Diagnoses Venous (peripheral) insufficiency Venous (peripheral) insufficiency [I87.2] Procedures IA INJECTION PROC,EXTREMITY,VENOGRAPHY VENOGRAM David Ramirez MD [address] [place] [phone] [facility] [address] [place] [phone] Referral ID Status Reason Start Date Expiration Date Visits Re quested Visits Authorized [id number] 1 1 Specialty Diagnoses / Procedures Referred By Contac t Referred To Contact Diagnoses ICD (implantable cardioverter-defibrillator) battery depletion ICD (implantable cardioverter-defibrillator) battery depletion [Z45.02] Procedures IA RMVL IMPLTBL DFB PLSE GEN W/REPL PLSE GEN 1 LEAD IA INSJ 1 TRANSVNS ELTRD PERM PACEMAKER/IMPLTBL DFB ICD GENERATOR CHANGEOUT LEAD INSERTION Justin Pittman MD [address] [place] [phone] [facility] [address] [place] [phone] Referral ID Status Reason Start Date Expiration Date Visits Re quested Visits Authorized [id number] 1 1 Reason Comments Follow-up USG left ankle injec tion Reason Comments Injection USG left subtalar haiel int FOR RECORDS PERTAINING TO PATIENTS WHO [...] BE BASED ON THE PRIMARY CLINICAL RECORDS. [employer] provides no warranty or guarantee of the accuracy or completeness of information in this document."
[2025-08-08 23:36] LABS: Anion Gap 11 (5-15); BUN 15 mg/dL (4-19); BUN/Creat Ratio 12.2 RATIO (10-20); CRP 46.50 mg/L (0.0-3.0); Calcium,Total 10.0 mg/dL (7.6-11.0); Carbon Dioxide 21.1 mmol/L (21.0-32.0); Chloride 104 mmol/L (98-108); Estimated Creatinine Clearance 75.42 ml/min (50-250); Glucose 106 mg/dL (70-99); Potassium 4.7 mmol/L (3.3-5.1)
--- NOTE | 2025-08-09 00:15 | HP.PCM.HOS_ITS ---
HPI - General General Date of Admission: 08/09/25 Date of Service: 08/09/25 Chief Complaint: Intractable L knee pain, unable to ambulate. HPI Narrative The patient is a 70 y/o M w/ PMHx: Morbid obesity, BPH with obstructive pathology, CAD s/p CABG and PCI, HTN, HLD, Diabetes mellitus type II, GERD, TARAN on CPAP, HFrEF s/p AICD who presents to [facility] ED on 08/09/2025 with history of significant pain to the left knee with no specific injury or fall starting over the last 24 hours and unfortunately worsening with debility and inability to walk on it prompting eventual ED evaluation. He notes initially prior to ED arrival his pain in the left knee was 10 out of 10 currently now 7 out of 10 following ED interventions. He does state that the pain is primarily when he attempts to bear weight on the left foot and stand and also when he attempts to bend his left knee and then extend it. He denies any significant swelling or erythema to the region. He does use a right lower extremity prosthetic. Workup in the ED included T97, heart rate 85, BP 120/94, respiratory rate 15, 98% on room air, CBC with WC 6.2, Hgb 14.3, platelet 154 with lymphopenia, ESR 15, CRP 46.5, BMP with BUN/creatinine 15/1.21, GFR 64, glucose 106, lactic acid 1.9, plain film of the left knee with no acute fracture or dislocation, mild joint space narrowing similar to previous study, mild lateral tilting of the patella, no focal soft tissue swelling. In the ED patient ministered Toradol 15 mg IV x 1 as well as gabapentin 300 p.o. x 1. [facility] Medical History Coronary atherosclerosis of bypass graft Wears hearing aid Wears glasses Wears contact lenses Wears partial dentures Diabetes Arthritis Anemia Back pain Injury of head and neck Difficulty swallowing Phantom pain after amputation of lower extremity Stuttering History of pain when walking History of edema History of echocardiogram History of stress test Cardiology follow-up encounter Lateral epicondylitis of left elbow Left elbow pain Over 65 years old COVID-19 Fracture, humerus Fall Cancer Depression Former smoker CPAP (continuous positive airway pressure) dependence Pacemaker TIA (transient ischemic attack) Esophageal foreign body Stroke-like symptoms Paresthesia of left upper extremity Renal calculi GERD (gastroesophageal reflux disease) Chest pain Mixed hyperlipidemia Essential hypertension Obesity (BMI 30-39.9) Surgical wound dehiscence Above knee amputation of right lower extremity Debility Lymphedema of right lower extremity Automatic implantable cardioverter-defibrillator in situ Chronic systolic congestive heart failure GERD (gastroesophageal reflux disease) Atherosclerotic heart disease of [place] coronary artery without angina pectoris Shortness of breath History of 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 [facility] use of drug Ischemic cardiomyopathy (~10/30/23) Atherosclerosis of coronary artery bypass graft without angina pectoris Gastroenteritis SIRS (systemic inflammatory response syndrome) Morbid obesity with BMI of 40.0-44.9, adult Effects of radiation Acute lymphangitis of right lower extremity ICD (implantable cardioverter-defibrillator) in place (~08/17/10) Lymphedema of Right Leg CAD (coronary artery disease) Chronic Systolic CHF - EF 45% GERD (gastroesophageal reflux disease) Home Medications ?Medication ?Instructions ?Recorded ?Last Taken ?Type aspirin 81 mg chewable tablet 81 mg PO QHS Heart healt h 06/09/17 11/08/24 History gabapentin 300 mg capsule 300 mg PO QHS Rls 09/21/20 0 06/10/24 History temazepam 15 mg capsule 15 mg PO QHS PRN Sleep 09/2106/10/24 History trazodone 50 mg tablet 50 mg PO QHS sleep 03/22/21 06/10/24 History escitalopram oxalate 20 mg tablet 20 mg PO DAILY 08/2006/11/24 History multivitamin (Daily Multi-Vitamin 1 tab PO DAILY 05/2706/06/24 History tablet) pantoprazole 40 mg tablet,delayed 40 mg PO DAILY gerd #90 tabs 09/21/24 11/18/24 05:45 Rx release clopidogrel 75 mg tablet (Plavix) 75 mg PO DAILY blood clots #90 tabs 10/12/24 11/08/24 Rx acetaminophen 500 mg tablet 1,000 mg PO Q8 PRN fever o r pain 10/21/24 Unknown History desloratadine 5 mg tablet 5 mg PO DAILY PRN allergy sy mptoms 10/21/24 Unknown History finasteride 5 mg tablet 5 mg PO DAILY 10/21/24 Unkno wn History dapagliflozin propanediol 10 mg 10 mg PO DAILY #90 tab s 12/10/24 Unknown Rx tablet (Farxiga) carvedilol 25 mg tablet 25 mg PO BID heart #180 tabs 12/25/24 Unknown Rx ramipril 10 mg capsule 10 mg PO DAILY #90 caps 04/01 04/25 Unknown Rx atorvastatin 40 mg tablet (Lipitor) 40 mg PO QDAY #90 tabs 05/03/25 Unknown Rx furosemide 40 mg tablet 40 mg PO QDAY #90 tabs 06/23 Unknown Rx potassium chloride 20 mEq 20 meq PO QDAY supplement #1 80 tabs 06/23/25 Unknown Rx tablet,extended release spironolactone 25 mg tablet 25 mg PO DAILY #30 tabs Unknown Rx atorvastatin 80 mg tablet 80 mg PO QHS 08/09/25 Unknow n History cyclobenzaprine 5 mg tablet 5 mg PO Q8H PRN PRN muscle spasm 08/09/25 Unknown History levocetirizine 5 mg tablet 5 mg PO DAILY 08/09/25 Unkn own History Allergy/AdvReac Type Severity Reaction Status Date / Time No Known Allergies Allergy Verified 08/08/25 22:25 Family History Mother CAD (coronary artery disease) Father CVA (cerebral vascular accident) Myocardial infarction Brother CAD (coronary artery disease) Hx of CABG Brother CAD (coronary artery disease) Hx of CABG Other Family history of CVA Surgical History History of implantable cardiac defibrillator (ICD) Hx of arthroscopic knee surgery H/O heart artery stent Hx of lithotripsy History of shoulder surgery History of cardiac catheterization Hx of colonoscopy Hx of esophagogastroduodenoscopy Presence of stent in coronary artery (~10/15/13) Postsurgical aortocoronary bypass status (~06/01/05) Social History (Updated 08/09/25 @ 00:[address] Adamaris Carrasco MD) household members: none Smoking Status: Former smoker how long ago did patient quit smokin alcohol intake: current alcohol intake frequency: a few times a month substance use type: does not use caffeine: Yes ROS ROS Narrative Admission Review of Systems: CONSTITUTIONAL: No weight loss, fever, chills, + weakness or fatigue. HEENT: Eyes: No visual loss, blurred vision, double vision or yellow sclerae. Ears, Nose, Throat: No hearing loss, sneezing, congestion, runny nose or sore throat. SKIN: No rash or itching, lesions, wounds except +occasional stage ecchymoses, abrasions CARDIOVASCULAR: + Chronic edema/lymphedema. No chest pain, chest pressure or chest discomfort, palpitations, orthopnea, syncopal events. RESPIRATORY: No shortness of breath, cough or sputum, wheezing, hemoptysis. GASTROINTESTINAL: No anorexia, nausea, vomiting or diarrhea, abdominal pain, melena, BRBPR. GENITOURINARY: + History BPH with obstructive pathology, urinary frequency. No dysuria, urgency or retention. NEUROLOGICAL: No headache, dizziness, syncope, paralysis, ataxia, numbness or tingling in the extremities, focal weakness, change in bowel or bladder control, seizure. MUSCULOSKELETAL: + muscle, back pain, joint pain or stiffness. HEMATOLOGIC: No anemia, bleeding or bruising. LYMPHATICS: No enlarged nodes. No history of splenectomy. PSYCHIATRIC: + History of anxiety and depression. ENDOCRINOLOGIC: No reports of sweating, cold or heat intolerance. No polyuria or polydipsia. ALLERGIES: + History of allergic rhinitis. Vital Signs Vital Signs Vital Signs: 08/08/25 22:25 Temperature 97 F L Temperature Source Temporal Pulse Rate 85 Respiratory Rate 15 Blood Pressure 120/94 H Blood Pressure Mean 102 Pulse Ox 98 Oxygen Delivery Method Room Air Weight Weight: 298 lb 11.622 oz Body Mass Index (BMI) 46.7 Physical Exam Narrative Physical Examination: General: Awake, alert, oriented x 3 and cooperative, seated upright in the ED bed, currently does not appear any acute pain but notes when he attempts to bear weight or bend and then extend his left knee he has significant to 10 out of 10 discomfort, currently rating his discomfort 7 out of 10 in severity. Skin: Normal color, normal turgor, no icterus, no cyanosis except occasional stage ecchymoses, abrasion. HEENT: AT/NC, EOMI, PERRLA, MMM, no carotid bruits, difficult discern JVD given thick neck. Lungs: Mildly diminished, distant likely secondary to habitus, mildly increased respiratory rate but no distress, no rales, ronchi or wheezing. Heart: Regular rate and rhythm; no gallop, rub audible. Abdomen: Soft, morbidly obese, NTTP, distant BS, difficult to discern distention and HSM given habitus. Extremities: No cyanosis, no clubbing, no significant distal edema, no marked left knee pain to palpation or edema or erythema noted, discomfort primarily with in bed bending the knee and then attempting to extend, status post previous right lower extremity distal amputation with prosthesis usage currently in place. Neurological: Patient awake, alert, oriented as noted, cognitive function intact; pupils equally reactive to light and accommodation, cranial nerves grossly normal, moving all 4 extremities except limited left lower extremity movement given acute pain with certain movements as well as status post previous right lower extremity distal amputation with prosthetic in place, no focal deficits, strength moderately to severely globally decreased. Psychiatric: Affect appears mildly fatigued otherwise normal, no acute evidence of depressive or anxiety feelings. Results Lab / Micro Data 08/08/25 22:51 08/08/25 22:51 Labs: Laboratory Results - last 24 hr 08/08/25 22:51: WBC 6.2, RBC 4.61, Hgb 14.3, Hct 41.6, MCV 90.2, MCH 31.0, MCHC 34.4, RDW Std Deviation 44.8 H, RDW Coeff of Ang 13.6, Plt Count 154, MPV 9.4, Immature Gran % (Auto) 0.600, Neut % (Auto) 74.4 H, Lymph % (Auto) 12.7 L, [place] % (Auto) 11.1 H, Eos % (Auto) 0.6, Baso % (Auto) 0.6, Absolute Neuts (auto) 4.6, Absolute Lymphs (auto) 0.79 L, Nucleated RBC % 0, ESR 15, Sodium 136, Potassium 4.7, Chloride 104, Carbon Dioxide 21.1, Anion Gap 11, BUN 15, Creatinine 1.21 H, Estim Creat Clear Calc 75.42, Est GFR (MDRD) Non-Af 64, BUN/Creatinine Ratio 12.2, Glucose 106 H, Lactic Acid 1.9, Calcium 10.0, C-React Prot Ext Range 46.50 H Imaging Radiology Impression Knee X-Ray 08/08/25 23:00 IMPRESSION: As above. Reading Location: [facility] Assessment & Plan Assessment/Plan (1) Intractable neuropathic pain of left knee: PLAN: Plan The patient is a 70 y/o M w/ PMHx: Morbid obesity, BPH with obstructive pathology, CAD s/p CABG and PCI, HTN, HLD, Diabetes mellitus type II, GERD, TARAN on CPAP, HFrEF s/p AICD who presents to [facility] ED on 08/09/2025 with history of significant pain to the left knee with no specific injury or fall starting over the last 24 hours and unfortunately worsening with debility and inability to walk on it prompting eventual ED evaluation. #1. Left knee severe pain with no acute trauma or injury with inability to bear weight, adult failure to thrive complicated by prior amputation to the right lower extremity: Failed conservative treatment in the ED, no obvious injury on plain film, will admit to medical surgical floor, maintain on fall precaution, will initiate topical pain compound, continue judicious use of IV Toradol, maintain on increased gabapentin with 300 nightly in addition to 100 mg a.m. and afternoon with increase as needed, breakthrough with oral/IV narcotic following these intervention attempts, will repeat ESR/CRP in AM and obtain procalcitonin but lower suspicion for septic joint, PT/OT/case meds consulted for discharge planning. Depending on response to these treatments and further pain may need consider further imaging and/or orthopedic evaluation with patient noting he is seen Dr. Anguiano in the past and he requested that if for some reason orthopedic surgery involvement was necessary for potential injection he would want Dr. Anguiano #2. HFpEF: Status post AICD, most recent noted echocardiogram 06/10/2025 with apical akinesis, posterior basal hypokinesis, estimated LVEF 35% with stage I diastolic dysfunction although difficult study, will only judiciously hydrate if absolutely necessary, continue aspirin, Plavix, statin, Coreg, ramipril, spironolactone and Lasix home regimen. #3. Diabetes mellitus type II with chronic neuropathy: Hold oral home regimen, continue home gabapentin regimen, ADA diet, accu checks w/ ISS. #4. CAD: Status post PCI and CABG (PTCA/stent to prox LAD 02/02/05; PTCA/stent instent restenosis of prox LAD 10/15/13 and CABG x2- PARK to LAD, SARIAH to OM 06/01/05), continue aspirin, Plavix, statin, Coreg, ramipril home regimen. #5. Hypertension: Continue home regimen including spironolactone, ramipril, Lasix, Coreg with hold parameters as needed, PRN hydralazine. #6. Hyperlipidemia: Will continue patient on statin therapy. #7. BPH with obstructive pathology: Will continue patient home finasteride regimen, monitor for retention. #8. Morbid Obesity: Weight loss and lifestyle changes encouraged. #9. TARAN: CPAP nightly. #10. DVT prophylaxis: Lovenox. #11. CODE status: Patient ISHAAN is his daughter and living will is currently in place. Discussed CODE status at length including difference between FULL code, DNR-CCA and DNR-CC status. Following discussions about the differences in these status, requested Full Code status. Charges/Coding Visit Charges Inpatient E&M: 60879 Init Hosp L2
[2025-08-09 00:31] VITALS: BP 143/56; PULSE 65; RESP 20; TEMP 37.1; O2SAT 97
--- OUTSIDE RECORDS SUMMARY | 2025-08-09 00:47 | XMS RPT_ITS | CCD ---
Author Organization [facility] Care Team Providers Care Life Skills Coordinator Volunteer Name Role Phone Sowmya, RN, Peg Demarco [...] Provider Hernando, Dr. Mazariegos Other Provider Alonzo RELIGIOUS EDUCATION TEACHER, RELIGIOUS EDUCATION TEACHER-C Jeffry Attending Provider Delilah Foster MD Unavailable Speedy Boswell MD Primary Care Provider DAVID RAMIREZ Attending Unavailable HERNANDO, DELILAH Referring Unavailable BOSWELL, SPEEDY Bone Primary Care Unavailable HOUMSSE MAHMOUD Attending Unavailable PACEMAKER [facility] Referring Un available SPEEDY BOSWELL Primary Care [...] Provider Jm Anguiano MD Attending Provider Tessy RELIGIOUS EDUCATION TEACHER-CDavid Attending Provider Tessy RELIGIOUS EDUCATION TEACHER-CDavid Referring Provider Bushra, Ge Referring Unavailable Boswell, Speedy Primary Care Unavailable Bushra, Ge Attending Unavailable Boswell, Speedy Primary Care Unavailable Bushra, Ge Attending Unavailable Bushra, Ridott Referring Unavailable Boswell, Speedy Primary Care Unavailable Bushra, Ge Attending Unavailable Bushra, Ridott Referring Unavailable Boswell, Speedy Primary Care Unavailable [...] Referring Unavailable Hernando, Delilah Attending Unavailable Hernando, Dleilah Attending Unavailable Boswell, Speedy Referring Unavailable Boswell, Speedy Primary Care Unavailable Roof RELIGIOUS EDUCATION TEACHER, David Ramon Attending Unavailable Boswell, Speedy Primary Care Unavailable Boswell, Speedy Referring Unavailable Hernando, Delilah Attending Unavailable Boswell, Speedy Referring Unavailable Boswell, Speedy Primary Care Unavailable Bushra, Ridott Referring Unavailable Bushra, Ge Attending Unavailable Boswell, Speedy Primary Care Unavailable Roof RELIGIOUS EDUCATION TEACHER, David Ramon Referring Unavailable Roof RELIGIOUS EDUCATION TEACHER, David Ramon Attending Unavailable Boswell, Speedy Primary [...] Two tablets by mouth twice daily FUROSEMIDE [id number] Divina Giles PA-C Start: 10-05-2013 End: 01-07-2016 [...] One tablet by mouth daily GABAPENTIN ENACARBIL [id number] Cary George MD Start: 05-04-2015 End: 01-10-2016 take 1 tablet by mouth once daily HORIZANT 600 MG CR-TABS One tablet by mouth daily GABAPENTIN ENACARBIL [id number] Cary George MD LORazepam 0.5 mg oral [...] Start: 04-25-2019 take 2 tablets by mo [facility] once daily potassium chloride (KLOR-CON M) [...] Start: 12-10-2011 take 2 tablets by mo [facility] once daily KLOR-CON M20 20 MEQ CR-TABS Two tablets by mouth daily POTASSIUM CHLORIDE NISHANT CR [id number] Jay Gaines Singh ECONOMIC ADVISER-C Start: 12-10-2011 take 1 tablet by serafin th once daily KLOR-CON M20 20 MEQ CR-TABS One tablet by mouth daily POTASSIUM CHLORIDE NISHANT CR [id number] Speedy Mtz MD Start: 02-16-2011 take 1 tablet by serafin th once daily POTASSIUM CHLORIDE 20 MEQ PACK One tablet by mouth daily POTASSIUM CHLORIDE [id number] Opal Lees Start: 02-16-2011 take 1 tablet by serafin th once daily KLOR-CON M20 20 MEQ CR-TABS One tablet by mouth daily POTASSIUM CHLORIDE NISHANT CR 44932494746 Speedy Mtz MD Start: 02-16-2011 take 1 tablet by serafin once daily POTASSIUM CHLORIDE 20 MEQ PACK One tablet by mouth daily POTASSIUM CHLORIDE 68559190188 Opal Lees 12 hr ranolazine 500 mg [...] serafin th twice daily RANEXA 500 MG [id number] One tablet by mouth twice daily RANOLAZINE 82325896716 Divina Giles PA-C Start: 10-05-2013 End: 12-04-2013 take 1 tablet by mouth twice daily Ranolazine 500 MG tablet Discontinued 500 mg PO TWICE A DAY October 05, 2013 1:00am December 04, 2013 1:34am Start: 06-17-2013 End: 10-28-2013 take 1 tablet by mouth twice daily RANEXA 500 MG [id number] One tablet by mouth twice daily RANOLAZINE [id number] Divina Giles PA-C sennosides, retirement 8.6 mg oral tablet (4 sources) Start: [...] tablet by mouth daily every night TEMAZEPAM [id number] Arlene Tavarez MD Start: 07-16-2014 End: 01-10-2016 take 1 tablet by mouth once daily at bedtime as needed TEMAZEPAM 15 MG CAPS One tablet by mouth daily at bedtime as needed TEMAZEPAM 64897949074 Val Henley RN traZODone hydrochloride 50 mg [...] VICODIN 5-500 MG TABS As needed HYDROCODONE-ACETAMINOPHEN 91571031856 Opal Lees Start: 02-16-2011 End: 12-10-2011 VICODIN 5-500 MG TABS As nee ded HYDROCODONE-ACETAMINOPHEN 46673105089 Khris Spencer MD Start: 02-16-2011 VICODIN 5-500 MG TABS As needed HYDROCODONE-ACETAMINOPHEN 13870594964 Opal Lees Start: 02-16-2011 End: 12-10-2011 VICODIN 5-500 MG TABS As nee ded HYDROCODONE-ACETAMINOPHEN 43283854879 Khris Spencer MD acetaminophen 325 mg / [...] TBEC One tablet by mouth daily ASPIRIN 80423374925 Cary George MD Start: 06-09-2017 End: 10-21-2024 [...] TBEC One tablet by mouth daily ASPIRIN 08973283112 Cary George MD Start: 02-16-2011 take 1 tablet by serafin once daily ASPIRIN 325 MG TABS One tablet by mouth daily ASPIRIN 61904228921 Opal Lees aspirin 81 MG ta blet [...] MD Start: 02-16-2011 [facility] LOD[facility]ANE XR 8MG/5MI One tablet by mouth twice daily LODRANE XR 8MG/5MI Opal Lees Start: 02-16-2011 [facility] LODRANE XR 8MG/5MI One tablet [...] MCG/ACT SUSP (0.032mg/inh) Take as directed BUDESONIDE 65826529649 Opal Lees 12 hr buPROPion hydrochloride 150 [...] COREG 12.5 MG TABS twice daily CARVEDILOL 91563134310 Екатерниа Griggs RN Start: 02-16-2011 End: 01-10-2016 take [...] One tablet by mouth daily CITALOPRAM HYDROBROMIDE 20363562884 Val Henley RN clindamycin 150 mg oral [...] 10 MG TROC 5 x day CLOTRIMAZOLE 52503966444 Wilda Wise clotrimazole (LO TRIMIN) 1 % [...] twice daily for 10 days DOXYCYCLINE HYCLATE 99573440305 Jeffry Laresn CNP 0.4 ml enoxaparin sodium 100 mg/ml [...] One tablet by mouth daily ESOMEPRAZOLE MAGNESIUM 38836682672 Opal Lees etodolac 400 mg oral tablet (20 sources) Nonsteroidal Anti-inflammatory Drug Start: 07-16-2014 End: 01-10-2016 take 1 tablet by mouth twice daily as needed ETODOLAC 400 MG TABS One tablet by mouth twice daily as needed ETODOLAC 86256327826 Val Henley RN fexofenadine hydrochloride 180 mg [...] MG TABS 1 po q d FLUCONAZOLE 82487347143 Arlene Tavarez MD 1 ml HYDROmorphone hydrochloride [...] once daily ISOSORBIDE MONONITRATE ER 60 MG [id number]-VMR One tablet by mouth daily ISOSORBIDE MONONITRATE 79700669047 Ge Tomlinson MD Start: 10-07-2013 End: 10-24-2015 take 1 tablet by mouth twice daily IMDUR 60 MG [id number]-TNM One tablet by mouth twice daily ISOSORBIDE MONONITRATE 86082247960 Ge Tomlinson MD Start: 10-07-2013 take 1 tablet by serafin th twice daily IMDUR 60 MG [id number]-DTO One tablet by mouth twice daily ISOSORBIDE MONONITRATE 13166329751 Speedy Mtz MD Start: 10-07-2013 take 1 tablet by serafin th twice daily IMDUR 60 MG DO70N-KMP One tablet by mouth twice daily ISOSORBIDE MONONITRATE Speedy Mtz MD Start: 10-07-2013 End: 10-24-2015 take 1 tablet by mouth twice daily IMDUR 60 MG [id number]-UKP One tablet by mouth twice daily ISOSORBIDE MONONITRATE Ge Tomlinson MD Start: 10-05-2013 End: 01-10-2016 take 1 tablet by mouth twice daily Isosorbide Mononitrate 60 MG tablet Discontinued 60 mg PO TWICE A DAY October 05, 2013 1:00am January 07, 2016 1:54pm Start: 08-27-2013 take 1 tablet by serafin th twice daily IMDUR 30 MG [id number]-OPQ One tablet by mouth twice daily ISOSORBIDE MONONITRATE 55774332373 Speedy Mtz MD Start: 08-27-2013 take 1 tablet by serafin th twice daily IMDUR 30 MG [id number]-OWR One tablet by mouth twice daily ISOSORBIDE MONONITRATE 15262699731 Speedy Mtz MD Start: 08-27-2013 take 1 tablet by serafin th twice daily IMDUR 30 MG [id number]-XWP One tablet by mouth twice daily ISOSORBIDE MONONITRATE 10680226860 Speedy Mtz MD Start: 07-01-2013 take 1 tablet by serafin th once daily IMDUR 30 MG [id number]-AVZ One tablet by mouth daily ISOSORBIDE MONONITRATE 17703691195 Divina Giles PA-C Start: 07-01-2013 take 1 tablet by serafin th once daily IMDUR 30 MG [id number]-BGS One tablet by mouth daily ISOSORBIDE MONONITRATE 11467149015 Divina Giles PA-C Start: 07-01-2013 take 1 tablet by serafin th once daily IMDUR 30 MG [id number]-XDP One tablet by mouth daily ISOSORBIDE MONONITRATE 43793134705 Divina Giles PA-C KLOR-CON 20 CR-TABS (POTASSIUM [...] One tablet by mouth daily LEVOCETIRIZINE DIHYDROCHLORIDE 86492477054 Cary George MD levoFLOXacin 500 mg oral tablet (16 sources) Quinolone Antimicrobial Start: 01-07-2016 End: 01-14-2016 take 1 tablet by mouth once daily LEVAQUIN 500 MG TABS One tablet by mouth daily LEVOFLOXACIN 46107251607 Wilda Wise 10 ml lidocaine hydrochloride 10 [...] One tablet by mouth daily MULTIPLE VITAMIN 47787658200 Opal Lees MULTIPLE VITAMIN (15 sources) Start: 02-16-2011 take 1 tablet by mouth once daily MULTIVITAMINS TABS One tablet by mouth daily MULTIPLE VITAMIN 20788476045 Opal Lees naproxen 500 mg oral tablet (20 sources) Nonsteroidal Anti-inflammatory Drug Start: 02-16-2011 End: 07-16-2014 take 1 tablet by mouth twice daily NAPROXEN 500 MG TABS One tablet by mouth twice daily NAPROXEN 90495479184 Opal Lees 24 hr nicotine 0.583 mg/hr transdermal system (20 sources) Cholinergic Nicotinic Agonist Start: 12-14-2016 End: 06-19-2017 NICODERM CQ 14 MG/24HR PT24 Apply once a day for 2 weeks or as directed NICOTINE 98726375106 Cary George MD nitroglycerin 0.4 mg sublingual [...] 3 as needed for chest pain. NITROGLYCERIN 51981475593 Ginny Alanis RN nystatin 263057 unt/ml oral suspension (20 sources) Polyene Antifungal Start: 06-19-2017 End: 01-08-2018 take 790192 [IU] by mouth three times daily Nystatin 100,000 UNIT/ML suspension Discontinued 714017 U PO THREE TIMES A DAY July 30, 2017 12:00am January 08, 2018 3:34pm Start: 01-07-2016 End: 06-01-2016 NYSTATIN 352492 UNIT/GM POWD three times a day NYSTATIN 67261435574 Wilda Wise Start: 01-07-2016 End: 06-01-2016 NYSTATIN 214908 UNIT/GM POWD three times a day NYSTATIN 21467132986 Wilda Anjelica Billie omeprazole 40 mg delayed release oral capsule (20 sources) Proton Pump Inhibitor Start: 10-21-2012 End: 01-10-2016 take 1 tablet by mouth once daily OMEPRAZOLE 40 MG CPDR One tablet by mouth daily OMEPRAZOLE 37016870307 Wildaalbino Hendrixshabnam Start: 05-03-2011 take 1 tablet by serafin th once daily OMEPRAZOLE 20 MG CPDR One tablet by mouth daily OMEPRAZOLE 36729233488 Opal Lees Start: 02-16-2011 End: 01-08-2018 take [...] tablet by mouth twice daily PANTOPRAZOLE SODIUM 64468796719 Cary George MD take 40 mg by mouth once daily before breakfast pantoprazole sodium (PROTONIX) 40 MG PACK packet Take 40 mg by mouth every morning (before breakfast) 0 Active 2 ml penicillin g benzathine 208915 unt/ml / penicillin g procaine 670703 unt/ml prefilled syringe (20 sources) Penicillin-class Antibacterial Start: 07-11-2018 End: 04-14-2019 Penicillin G Benzathin,Procain 1,200,000 UNIT/2 ML syringe Discontinued [id number] U IM EVERY MONTH July 11, 2018 12:00am April 14, 2019 8:42am infection polyethylene glycol 3350 01535 mg powder for oral solution (20 sources) [...] mouth twice daily (0.25) POLYETHYLENE GLYCOL 3350 56958126248 Opal Lees Start: 02-16-2011 End: 12-10-2011 take 1 tablet by mouth twice daily MIRALAX PACK One tablet by mouth twice daily (0.25) POLYETHYLENE GLYCOL 3350 07573963542 Khris Spencer MD Start: 02-16-2011 take 1 tablet by serafin th twice daily MIRALAX PACK One tablet by mouth twice daily (0.25) POLYETHYLENE GLYCOL 3350 50519839159 Opal Lees Start: 02-16-2011 End: 12-10-2011 take 1 tablet by mouth twice daily MIRALAX PACK One tablet by mouth twice daily (0.25) POLYETHYLENE GLYCOL 3350 89912786404 Khris Spencer MD POLYETHYLENE GLYCOL 3350 (2 sources) Start: 02-16-2011 End: 12-10-2011 take 1 tablet by mouth twice daily MIRALAX PACK One tablet by mouth twice daily (0.25) POLYETHYLENE GLYCOL 3350 [id number] Khris Spencer MD Start: 02-16-2011 take 1 tablet by serafin th twice daily MIRALAX PACK One tablet by mouth twice daily (0.25) POLYETHYLENE GLYCOL 3350 98819709142 Opal Lees pramipexole dihydrochloride 0.5 mg oral tablet (20 sources) Nonergot Dopamine Agonist Start: 12-10-2011 End: 05-04-2015 take 2 tablets by mouth at bedtime MIRAPEX 0.125 MG TABS 2 tablets by mouth at bedtime PRAMIPEXOLE DIHYDROCHLORIDE 83358535152 Speedy Mtz MD Start: 12-10-2011 take 1 tablet by serafin th at bedtime MIRAPEX 0.5 MG TABS One tablet by mouth at bedtime. PRAMIPEXOLE DIHYDROCHLORIDE 25474578288 Khris Spencer MD predniSONE 20 mg oral [...] 06-19-2017 ALTACE 2.5 MG CAPS .11 RAMIPRIL 78493306069 Cary George MD Start: 01-07-2014 End: 01-08-2018 take 1 capsule by mouth once daily Ramipril 5 MG capsule Discontinued 5 mg PO DAILY 30 0 January 07, 2016 1:00am January 08, 2018 3:35pm Start: 01-07-2014 ALTACE 5 MG CA PS on hold 04/29 RAMIPRIL 12609619210 Екатерина Griggs RN Start: 01-07-2014 take 1 tablet by serafin th twice daily ALTACE 10 MG CAPS One tablet by mouth twice daily RAMIPRIL 49984492988 Ginny Alanis RN Start: 01-07-2014 take 1 tablet by serafin th once daily ALTACE 2.5 MG CAPS One tablet by mouth daily RAMIPRIL 52084661142 Divina Giles PA-C Start: 10-05-2013 End: 01-07-2016 [...] One tablet by mouth twice daily RAMIPRIL 12072401788 Val Henley RN silodosin 8 mg oral capsule (20 sources) alpha-Adrenergic Sasha Start: 11-06-2013 End: 01-10-2015 take 1 tablet by mouth at bedtime RAPAFLO 8 MG CAPS One tablet by mouth at bedtime. SILODOSIN 94341145436 Speedy Mtz MD 1000 ml sodium chloride [...] One tablet by mouth daily TAMSULOSIN HCL 14918283611 Speedy Mtz MD triamcinolone acetonide 0.055 mg/actuat metered dose nasal spray (20 sources) Corticosteroid Start: 10-30-2012 End: 01-10-2016 take 2 spray(s) nasal route once daily NASACORT AQ 55 MCG/ACT AERO two sprays in each nostril once a day TRIAMCINOLONE ACETONIDE 69150348483 Wilda Wise Start: 10-30-2012 take 2 spray(s) nasa l route once daily NASACORT AQ 55 MCG/ACT AERS two sprays in each nostril once a day TRIAMCINOLONE ACETONIDE 87760657085 Peg Deng RN Start: 10-30-2012 take 2 spray(s) nasa l route once daily NASACORT AQ 55 MCG/ACT AERS two sprays in each nostril once a day TRIAMCINOLONE ACETONIDE 34037347495 Val Henley RN Start: 10-30-2012 End: 01-10-2016 take 2 spray(s) nasal route once daily NASACORT AQ 55 MCG/ACT AERS two sprays in each nostril once a day TRIAMCINOLONE ACETONIDE 21035807112 Wilda Wise Vancomycin HCl in NaCl (Vancocin) [...] Coronary atherosclerosis; Translations: [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] Onset: 02-16-2011 [...] (9 sources) Patient encounter status; Translations: [Other vermin exterminator (current) drug therapy] 04-21-2019 Episodic Other aftercare (11 sources) Long-term current use of drug therapy; Translations: [Other custodial (current) drug therapy] 01-08-2018 Episodic Other bone [...] (1 source) Long-term drug therapy; Translations: [Other custodial (current) drug therapy] Onset: 02-16-2011 02-16-2011 Unclassified [...] (15 sources) Long-term drug therapy; Translations: [Other vermin exterminator (current) drug therapy] Onset: 02-16-2011 02-16-2011 Episodic [...] Facility Cardiology Visit Reporton Cardiology Visit Report [facility] 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 Normal [facility] Anion gap in Serum or Plasma Ordered By: David Still on 07-02-2025 Anion gap [Moles/Vol] 13 mmol/L 04-15 [facility] BUN/creatinine ratioOrdered By: David Still on 07-02-2025 Urea nitrogen/Creatinine [Mass ratio] 17.6 mg/mg 09-20 [facility] Basic Metabolic Profile (BMP )on 07-02-2025 BUN/CRE 17.6 RATIO Normal 09-20 [facility] Comment on above: Performed By: #### L 500.2500 #### [facility] [address] [place], [place], [id number] Calcium [Mass/Vol] 9.7 mg/dL Normal 7.6-11.0 [facility] Comment on above: Performed By: #### L 500.2500 #### [facility] [address] [place], [address] Chloride [Moles/Vol] 106 mmol/L Normal 98-108 [facility] Comment on above: Performed By: #### L 500.2500 #### [facility] [address] [place], [address] CO2 [Moles/Vol] 20.6 mmol/L Low 21.0-32.0 [facility] Comment on above: Performed By: #### L 500.2500 #### [facility] [address] [place], [address] Creatinine [Mass/Vol] 1.56 mg/dL High 0.70-1.20 [facility] Comment on above: Performed By: #### L 500.2500 #### [facility] [address] [place], [address] GAP 13 Normal 5-15 [facility] Comment on above: Performed By: #### L 500.2500 #### [facility] [address] [place], [address] GFR/1.73 sq M.predicted among non-blacks MDRD (S/P/Bld) [Vol rate/Area] 47 mL/min/{1.73_m2} Low >60 [facility] Comment on above: Result Comment: mL/m in/1.73m2 CKD-EPI Creatinine Equation (2020) Performed By: #### L 500.2500 #### [facility] [address] [place], [address] Glucose [Mass/Vol] 105 mg/dL High 70-99 [facility] Comment on above: Performed By: #### L 500.2500 #### [facility] [address] [place], [address] Potassium [Moles/Vol] 4.6 mmol/L Normal 3.3-5.1 [facility] Comment on above: Performed By: #### L 500.2500 #### [facility] [address] [place], [address] Sodium [Moles/Vol] 140 mmol/L Normal 133-145 [facility] Comment on above: Performed By: #### L 500.2500 #### [facility] [address] [place], [place], [address] Urea nitrogen [Mass/Vol] 27 mg/dL High 4-19 [facility] Comment on above: Performed By: #### L 500.2500 #### [facility] [address] [place], [place], [address] Carbon dioxide, total [Moles /volume] in Central venous bloodOrdered By: David Still on 07-02-2025 CO2 [Moles/Vol] 20.6 mmol/L Low 21.0-32.0 [facility] Chloride assayOrdered By: Haile Still on 07-02-2025 Chloride [Moles/Vol] 106 mmol/L 98-108 [facility] Glomerular filtration rate ( GFR) estimation/1.73 sq m using serum, plasma, or whole bOrdered By: David Still on 07-02-2025 GFR/1.73 sq M.predicted among non-blacks MDRD (S/P/Bld) [Vol rate/Area] 47 mL/min/{1.73_m2} Low >60 [facility] Comment on above: mL/min/1.73m2 CKD-EP I Creatinine Equation (2020) Potassium measurement (mass/ volume)Ordered By: David Still on 07-02-2025 Potassium (Unsp spec) [Mass/Vol] 4.6 mmol/L 3.3-5.1 [facility] Serum creatinine measurement (mass/volume)Ordered By: David Still on 07-02-2025 Creatinine [Mass/Vol] 1.56 mg/dL High 0.70-1.20 [facility] Serum glucose measurement (m ass/volume)Ordered By: David Still on 07-02-2025 Glucose [Mass/Vol] 105 mg/dL High 70-99 [facility] Serum or plasma calcium raul urement (mass/volume)Ordered By: David Still on 07-02-2025 Calcium [Mass/Vol] 9.7 mg/dL 7.6-11.0 [facility] Serum or plasma urea nitroge n measurement (mass/volume)Ordered By: David Still on 07-02-2025 Urea nitrogen [Mass/Vol] 27 mg/dL High 4-19 [facility] Sodium levelOrdered By: David Still on 07-02-2025 Sodium [Moles/Vol] 140 mmol/L 133-145 [facility] Orthopedic Visit Reporton Orthopedic Visit Report [facility] [facility] [address] [place] [address] OFFICE VISIT Date of Service: 06/24/25 MR#: [id number] Acct: [id number] Name: ALBIN ISSA Rep #: [id number] : 1955 Provider: Dr. Jm adkins MD Age/Sex: 70/M Location: [facility] Status: Signed with Addenda ADDENDUM by JOSE [...] Performing Provider: Jm Anguiano MD Performing Location: [facility] Administered by: Jm Anguiano MD on 06/24/25 15:37 Dose Route Admin Location Dispensed Lot Number Expiration Date NDC Man ufacturer 40 mg intra-articular Bilateral wrist 1 mL [id number] 07/02/27 8657-7864-59 [facility] Date cc: * Signed Intake Vital [...] (gastroesophageal reflux disease) 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 Shortness of breath History of 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 intermediate (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 Normal [facility] Echocardiogram study reportO rdered By: Delilah Foster on 06-14-2025 Study report [facility] [address] [address]. [place] [address] Echo Complete W/ Contrast 06/10/25 0928 MR#: [id number] Acct: [id number] Name: ALBIN ISSA Rep #:[id number] : 1955 70 From: Delilah Foster MD Attending Dr: Dr. Delilah Foster MD Status: REG CLI Ordering Dr: Delilah Foster MD Date: Location: [facility] Sex: M C Admitted: Reason For [...] Date Dictated: 06/10/2528 Date Transcribed: 06/14/25 120 Armoured Car Escort: Signed [facility] Work Phone: Cardiovascular stress test r eportOrdered By: Delilah Foster on 06-10-2025 Study report [facility] [address] [place] [address] MR#: [id number] Acct: [id number] Name: ALBIN ISSA Rep #: [id number] : 1955 70 From: Delilah Foster MD [...] of 43%. This note was generated with [employer] software. It may contain incorrectwords, spelling, and punctuation that were not noted in checking the note beforesigning. 06/10/25 1123 Date _ Delilah Foster MD CC: Dr. Delilah Foster MD; Dr. Speedy Boswell MD ~ Date Dictated: 06/10/251120 Date Transcribed: 06/10/251120 Armoured Car Escort: SON Mcgarry [facility] Work Phone: Echo Complete W/ Contraston 06-10-2025 Echo Complete W/ Contrast [facility] [address] [place] [address] Echo Complete W/ Contrast 06/10/25 0928 MR#: [id number] Acct: [id number] Name: ALBIN ISSA Rep #: [id number] : 1955 70 From: Delilah Foster MD Attending Dr: Dr. Delilah Foster MD Status: REG CLI Ordering Dr: Delilah Foster MD Date: 06/10/25 Location: [facility] Sex: M C Admitted: Reason For [...] Dictated: 06/10/25 0928 Date Transcribed: 06/14/25 1208 Armoured Car Escort: Signed Normal [facility] Stress Reporton 06-10-2025 Stress Report [facility] [address] [place] [address] MR#: [id number] Acct: [id number] Name: ALBIN ISSA Rep #: [id number] : 1955 70 From: Delilah Foster MD [...] of 43%. This note was generated with [place] dictation software. It may contain incorrect words, spelling, and punctuation that were not noted in checking the note before signing. 06/10/253 Date Delilah Foster MD CC: Dr. Delilah Foster MD; Dr. Speedy Boswell MD Date Dictated: 06/10/251120 Date Transcribed: 06/10/251120 Armoured Car Escort: SON Signed Normal [facility] Calculated very low density lipoprotein (VLDL) cholesterol measurementOrdered By: Speedy Boswell on 06-07-2025 Calculated very low density lipoprotein (VLDL) cholesterol measurement 22 mg/dL 5-40 [facility] LDL calc ser/plasOrdered By: Speedy Boswell on 06-07-2025 Cholesterol in LDL [Mass/Vol] 68 mg/dL [facility] Comment on above: Jakuohxsyj=067-941 m g/dL & Higher Ymdp=782 mg/dL or greater Lipid Profileon 06-07-2025 CHOL:HDL 3.84 Normal [facility] Comment on above: Performed By: #### L 500.2500, L100.0100 #### [facility] [address] [place], [place], [address] Cholesterol [Mass/Vol] 122 mg/dL Normal <=200 [facility] Comment on above: Result Comment: Chol esterol level, Desirable <200 mg/dL Borderline high cholesterol 200-239 mg/dL High cholesterol >=240 mg/dL Recommendations of the NCEP Adult Treatment Panel for the following risk-cutoff thresholds for the [place] population. Performed By: #### L 500.2500, L100.0100 #### [facility] [address] [place], [address] Cholesterol in HDL [Mass/Vol] 32 mg/dL Low [facility] Comment on above: Result Comment: Kimberley onal Cholesterol Education Program (NCEP) guidelines: <40 mg/dL: Low HDL-cholesterol (major risk factor for CHD) >= 60 mg/dL: High HDL-cholesterol (negative risk factor for CHD) HDL-cholesterol is affected by a number of factors, e.g. smoking, exercise, hormones, sex and age. Performed By: #### L 500.2500, L100.0100 #### [facility] [address] [place], [address] Cholesterol in LDL [Mass/Vol] 68 mg/dL Normal [facility] Comment on above: Result Comment: Bord twfvcl=239-996 mg/dL Higher Jdwa=131 mg/dL or greater Performed By: #### L 500.2500, L100.0100 #### [facility] [address] [place], [address] Cholesterol in VLDL [Mass/Vol] 22 mg/dL Normal 5-40 [facility] Comment on above: Performed By: #### L 500.2500, L100.0100 #### [facility] [address] [place], [address] Triglyceride [Mass/Vol] 110 mg/dL Normal [facility] Comment on above: Result Comment: The drugs N-Acetylcysteine and Metamizole may falsely depress this assay. Normal range: <150 mg/dL Borderline High: 150-199 mg/dL High: 200-499 mg/dL Very High: >500 mg/dL Performed By: #### L 500.2500, L100.0100 #### [facility] [address] [place], [address] Screening total cholesterol/ high density lipoprotein (HDL) cholesterol ratioOrdered By: Speedy Boswell on 06-07-2025 Cholesterol.total/Melba sterol in HDL [Mass ratio] 3.84 {ratio} [facility] Serum or plasma cholesterol in HDL measurement (mass/volume)Ordered By: Speedy Boswell on 06-07-2025 Cholesterol in HDL [Mass/Vol] 32 mg/dL Low >40 [facility] Comment on above: National Cholesterol Education Program (NCEP) guidelines:<40 mg/dL: Low HDL-cholesterol (major risk factor for CHD)>= 60 mg/dL: High HDL-cholesterol (negative risk factor for CHD)HDL-cholesterol is affected by a number of factors, e.g. smoking, exercise, hormones, sex and age. Serum or plasma cholesterol measurement (mass/volume)Ordered By: Speedy Boswell on 06-07-2025 Cholesterol [Mass/Vol] 122 mg/dL <201 [facility] Comment on above: Cholesterol level, D esirable <200 mg/dLBorderline high cholesterol 200-239 mg/dLHigh cholesterol >=240 mg/dLRecommendations of the NCEP Adult Treatment Panel for the following risk-cutoff thresholds for the [place] population. Triglycerides measurementOrd ered By: Speedy Boswell on 06-07-2025 Triglyceride [Mass/Vol] 110 mg/dL <199 [facility] Comment on above: The drugs N-Acetylcy steine and Metamizole may falsely depress this assay. Normal range: <150 mg/dLBorderline High: 150-199 mg/dLHigh: 200-499 mg/dLVery High: >500 mg/dL CTA Chest W/WO Contraston CTA Chest W/WO Contrast [facility] Imaging Services [address] [place] [address] [id number] CTA Chest W/WO Contrast MR#: [id number] Acct: [id number] Name: ALBIN ISSA Rep #: [id number] : 1955 M 70 From: Makenna Steiner PCP: Dr. Speedy Boswell MD Status: REG CLI Study: CTA Chest W/WO Contrast Date of Exam: 05/12/25 Exam# [id number] Ordering Dr: Speedy Boswell MD PROCEDURE: CTA [...] lobar branches. No focal consolidations. Reading Location: [id number] CC: Dr. Speedy Boswell MD [employer] Escort: Signed Normal [facility] Microalb:Creat Ratio,Random URon 05-12-2025 Creatinine [Mass/Vol] 91.40 mg/dL Normal 39.00-259.00 [facility] Comment on above: Performed By: #### L 500.2500, L100.0100 #### [facility] [address] [place], [address] MALB:CREAT UNABLE TO CALCULATE Normal [facility] Comment on above: Performed By: #### L 500.2500, L100.0100 #### [facility] [address] [place], [address] MICROALBUMIN,UR < 12.0 Normal NO RANGE EST. [facility] Comment on above: Performed By: #### L 500.2500, L100.0100 #### [facility] [address] [place], [address] MALB:CREAT Normal [facility] Comment on above: Result Comment: NO U RINE CVOLLECTED Performed By: #### L 500.2500, L100.0100 #### [facility] [address] [place], [address] MICROALBUMIN,UR Normal NO RANGE EST. [facility] Comment on above: Result Comment: NO U RINE CVOLLECTED Performed By: #### L 500.2500, L100.0100 #### [facility] [address] [place], [address] UR CREAT Normal 39.00-259.00 [facility] Comment on above: Result Comment: NO U RINE CVOLLECTED Performed By: #### L 500.2500, L100.0100 #### [facility] [address] [place], [address] Microalbumin/creat ratio urO rdered By: Speedy Boswell on 05-12-2025 Urine microalbumin/creatinine ratio measurement UNABLE TO CALCULATE mg/g CRE [facility] Random urine creatinine raul urement (mass/volume)Ordered By: Speedy Boswell on 05-12-2025 Creatinine Unsp time (U) [Mass/Vol] 91.40 mg/dL 39.00-259.00 [facility] Urine albumin measurement wi detection limit of 20 mg/L or less (mass/volume)Ordered By: Speedy Boswell on 05-12-2025 Albumin DL <= 20 mg/L (U) [Mass/Vol] < 12.0 mg/L NO RANGE EST. [facility] 12 Lead EKGon 05-09-2025 12 Lead EKG [facility] Cardiovascular Services [address] [place] [address] 12 Lead EKG 05/09/25 0004 MR#: [id number] Acct: [id number] Name: ALBIN ISSA Rep #: [id number] : 1955 70 From: Louis Sweet MD [...] Abnormal ECG Confirmed by Louis Sweet ([id number]), editor farm journal BEATRIZ BECERRIL ([id number]) on 05/10/2025 9:34:21 AM Referred By: Confirmed By: Louis Sweet 05/10/25 0934 Date Louis Sweet MD CC: Dr. Speedy Boswell MD; Dr. Kenneth Redmond DO Signed Normal [facility] Absolute lymphocyte countOrd ered By: Kenneth Redmond on 05-09-2025 Lymphocytes Auto (Unsp spec) [#/Vol] 1.88 10*3/uL 0.83-4.51 [facility] Absolute neutrophil countOrd ered By: Kenneth Redmond on 05-09-2025 Neutrophils (Bld) [#/Vol] 4.7 10*3/uL 2.0-7.7 [facility] Activated partial thrombopla stin time (aPTT) in platelet poor plasma by coagulation aOrdered By: Kenneth Redmond on 05-09-2025 aPTT Coag (PPP) [Time] 24.4 s 24.1-36.2 [facility] Anion gap in Serum or Plasma Ordered By: Kenneth Redmond on 05-09-2025 Anion gap [Moles/Vol] 11 mmol/L 5-15 [facility] Automated lymphocyte count a s percentage of total leukocytesOrdered By: Kenneth Redmond on 05-09-2025 Lymphocytes/100 WBC Auto (Unsp spec) 24.3 % 19-41 [facility] BUN/creatinine ratioOrdered By: Kenneth Redmond on 05-09-2025 Urea nitrogen/Creatinine [Mass ratio] 16.2 mg/mg 10-20 [facility] Basic Metabolic Profile (BMP )on 05-09-2025 BUN/CRE 16.2 RATIO Normal 10-20 [facility] Comment on above: Performed By: #### L 400.0001 #### [facility] [address] [place], [address] Calcium [Mass/Vol] 9.7 mg/dL Normal 7.6-11.0 [facility] Comment on above: Performed By: #### L 400.0001 #### [facility] [address] [place], [address] Chloride [Moles/Vol] 105 mmol/L Normal 98-108 [facility] Comment on above: Performed By: #### L 400.0001 #### [facility] [address] [place], [address] CO2 [Moles/Vol] 24.1 mmol/L Normal 21.0-32.0 [facility] Comment on above: Performed By: #### L 400.0001 #### [facility] [address] [place], [address] Creatinine [Mass/Vol] 1.25 mg/dL High 0.70-1.20 [facility] Comment on above: Performed By: #### L 400.0001 #### [facility] [address] [place], [address] ECRCL 74.15 ml/min Normal 50-250 [facility] Comment on above: Performed By: #### L 400.0001 #### [facility] [address] [place], [address] GAP 11 Normal 5-15 [facility] Comment on above: Performed By: #### L 400.0001 #### [facility] [address] [place], [address] GFR/1.73 sq M.predicted among non-blacks MDRD (S/P/Bld) [Vol rate/Area] 62 mL/min/{1.73_m2} Normal >60 [facility] Comment on above: Result Comment: mL/m in/1.73m2 CKD-EPI Creatinine Equation (2020) Performed By: #### L 400.0001 #### [facility] [address] [place], [address] Glucose [Mass/Vol] 88 mg/dL Normal 70-99 [facility] Comment on above: Performed By: #### L 400.0001 #### [facility] [address] [place], [address] Potassium [Moles/Vol] 3.5 mmol/L Normal 3.3-5.1 [facility] Comment on above: Performed By: #### L 400.0001 #### [facility] [address] [place], [address] Sodium [Moles/Vol] 140 mmol/L Normal 133-145 [facility] Comment on above: Performed By: #### L 400.0001 #### [facility] [address] [place], [address] Urea nitrogen [Mass/Vol] 20 mg/dL High 4-19 [facility] Comment on above: Performed By: #### L 400.0001 #### [facility] [address] [place], [address] Basophil percentageOrdered B y: Kenneth Redmond on 05-09-2025 Basophils/100 WBC (Bld) 0.9 % 0-1 [facility] CBC W/Diff, Automatedon 06-0 Absolute Lymph 1.88 X10 3/uL Normal 0.83-4.51 [facility] Comment on above: Performed By: #### L 501.4021, L300.8000, L500.2500, L300.4310, L300.3900, L100.0100, L503.7505 #### [facility] [address] [place], [address] Absolute Neut 4.7 X10 3/uL Normal 2.0-7.7 [facility] Comment on above: Performed By: #### L 501.4021, L300.8000, L500.2500, L300.4310, L300.3900, L100.0100, L503.7505 #### [facility] [address] [place], [address] Basophils/100 WBC (Bld) 0.9 % Normal 0-1 [facility] Comment on above: Performed By: #### L 501.4021, L300.8000, L500.2500, L300.4310, L300.3900, L100.0100, L503.7505 #### [facility] [address] [place], [address] Eosinophils/100 WBC (Bld) 3.9 % Normal 0-5 [facility] Comment on above: Performed By: #### L 501.4021, L300.8000, L500.2500, L300.4310, L300.3900, L100.0100, L503.7505 #### [facility] [address] [place], [address] Erythrocyte distribution width (RBC) [Ratio] 13.3 % Normal 11.6-14.6 [facility] Comment on above: Performed By: #### L 501.4021, L300.8000, L500.2500, L300.4310, L300.3900, L100.0100, L503.7505 #### [facility] [address] [place], [address] Hematocrit (Bld) [Volume fraction] 44.4 % Normal 40-54 [facility] Comment on above: Performed By: #### L 501.4021, L300.8000, L500.2500, L300.4310, L300.3900, L100.0100, L503.7505 #### [facility] [address] [place], [address] Hemoglobin (Bld) [Mass/Vol] 15.0 g/dL Normal 13.0-16.5 [facility] Comment on above: Performed By: #### L 501.4021, L300.8000, L500.2500, L300.4310, L300.3900, L100.0100, L503.7505 #### [facility] [address] [place], [address] IG% 0.600 Normal 0.0-0.9 [facility] Comment on above: Result Comment: IG% - Immature Granulocytes (promyelocytes, myelocytes and metamyelocytes) > 1% indicates that a LEFT SHIFT is Present. Performed By: #### L 501.4021, L300.8000, L500.2500, L300.4310, L300.3900, L100.0100, L503.7505 #### [facility] [address] [place], [address] Lymphocytes/100 WBC (Bld) 24.3 % Normal 19-41 [facility] Comment on above: Performed By: #### L 501.4021, L300.8000, L500.2500, L300.4310, L300.3900, L100.0100, L503.7505 #### [facility] [address], [address] MCH (RBC) [Entitic mass] 30.2 pg Normal 27.0-32.0 [facility] Comment on above: Performed By: #### L 501.4021, L300.8000, L500.2500, L300.4310, L300.3900, L100.0100, L503.7505 #### [facility] [address] [place], [address] MCHC (RBC) [Mass/Vol] 33.8 g/dL Normal 32-36 [facility] Comment on above: Performed By: #### L 501.4021, L300.8000, L500.2500, L300.4310, L300.3900, L100.0100, L503.7505 #### [facility] [address] [place], [address] MCV (RBC) [Entitic vol] 89.3 fL Normal 80-94 [facility] Comment on above: Performed By: #### L 501.4021, L300.8000, L500.2500, L300.4310, L300.3900, L100.0100, L503.7505 #### [facility] [address] [place], [address] Monocytes/100 WBC (Bld) 9.3 % Normal 0-10 [facility] Comment on above: Performed By: #### L 501.4021, L300.8000, L500.2500, L300.4310, L300.3900, L100.0100, L503.7505 #### [facility] [address] [place], [address] Neutrophils/100 WBC (Bld) 61.0 % Normal 47-70 [facility] Comment on above: Performed By: #### L 501.4021, L300.8000, L500.2500, L300.4310, L300.3900, L100.0100, L503.7505 #### [facility] [address] [place], [address] Nucleated RBC (Bld) [#/Vol] 0 10*3/uL Normal 0-5 [facility] Comment on above: Performed By: #### L 501.4021, L300.8000, L500.2500, L300.4310, L300.3900, L100.0100, L503.7505 #### [facility] [address] [place], [address] Platelet mean volume (Bld) [Entitic vol] 9.7 fL Normal 6.2-12.0 [facility] Comment on above: Performed By: #### L 501.4021, L300.8000, L500.2500, L300.4310, L300.3900, L100.0100, L503.7505 #### [facility] [address] [place], [address] Platelets (Bld) [#/Vol] 221 10*3/uL Normal 150-450 [facility] Comment on above: Performed By: #### L 501.4021, L300.8000, L500.2500, L300.4310, L300.3900, L100.0100, L503.7505 #### [facility] [address] [place], [address] RBC (Bld) [#/Vol] 4.97 10*6/uL Normal 4.6-6.2 [facility] Comment on above: Performed By: #### L 501.4021, L300.8000, L500.2500, L300.4310, L300.3900, L100.0100, L503.7505 #### [facility] [address] [place], [address] RDW SD 43.5 fl Normal 35.1-43.9 [facility] Comment on above: Performed By: #### L 501.4021, L300.8000, L500.2500, L300.4310, L300.3900, L100.0100, L503.7505 #### [facility] [address] [place], [address] WBC (Bld) [#/Vol] 7.7 10*3/uL Normal 4.4-11.0 [facility] Comment on above: Performed By: #### L 501.4021, L300.8000, L500.2500, L300.4310, L300.3900, L100.0100, L503.7505 #### [facility] [address] [place], [place], [address] Carbon dioxide, total [Moles /volume] in Central venous bloodOrdered By: Kenneth Redmond on 05-09-2025 CO2 [Moles/Vol] 24.1 mmol/L 21.0-32.0 [facility] Chest PA and Lateralon 05-09 Chest PA and Lateral [facility] Imaging Services [address] [place], [place] [address] Chest PA and Lateral MR#: [id number] Acct: [id number] Name: ALBIN ISSA Rep #: [id number] : 1955 M 70 From: Allie pollock MD PCP: Dr. Speedy Boswell MD Status: REG ER Study: Chest PA and Lateral Date of Exam: 05/09/25 Exam# [id number] Ordering Dr: Kenneth Redmond DO PROCEDURE: CHEST PA AND LATERAL 05/09/2025 REASON FOR EXAM: CHEST PAIN TECHNIQUE: Frontal and lateral views of the chest. COMPARISON: 10/27/2022. FINDINGS: AICD is in good position. Unremarkable median sternotomy wires. Unchanged mild central pulmonary venous congestion. There is no demonstrated pleural abnormality. Enlarged cardiac silhouette. Normal mediastinum and ekke. Normal visualized pulmonary arteries. Atheromatous plaques of the visualized aortic arch and descending thoracic aorta. Diffuse spondylosis of the visualized thoracic spine. Normal visualized ribs, clavicles. Degenerative joint disease. There is no demonstrated abnormality of the visualized soft tissue structures of the upper abdomen. RAD/Chest PA and Lateral IMPRESSION: Unchanged cardiomegaly. Unchanged mild central pulmonary venous congestion. Reading Location: [place] [address] CC: Dr. Speedy Boswell MD; Dr. Kenneth Redmond DO [employer] Escort: Signed Normal [facility] Chloride assayOrdered By: To maya Redmond on 05-09-2025 Chloride [Moles/Vol] 105 mmol/L 98-108 [facility] D-Dimer Quantitative (DVT/PE )on 05-09-2025 D-DIMER QUANT 0.59 FEU/ug/m Invalid Interpretation Code 0.27-0.49 [facility] Comment on above: Result Comment: D-Di kayla ELEVATED (>0.49): Additional studies and clinical assessments are indicated to conclude diagnosis of: Deep Vein Thrombosis (DVT) or Pulmonary Embolism (PE) CRITICAL VALUE CALLED TO LSPARR 05/09/25 0117 Beto Stark. RESULTS READ BACK BY SAME. Performed By: #### L 400.0001 #### [facility] [address] [place], [address] Emergency Department Summary on 05-09-2025 Emergency Department Summary [facility] Medical Records Department [address] [place] [address] Emergency Department Summary 05/09/25 MR#: [id number] Acct: [id number] Name: ALBIN ISSA Rep #: [id number] : 1955 70 From: Kenneth Quezada PCP: [...] started with sore throat. 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 Normal [facility] Eosinophil percentageOrdered By: Kenneth Redmond on 05-09-2025 Eosinophils/100 WBC (Bld) 3.9 % 0-5 [facility] Erythrocyte distribution wid th ratioOrdered By: Kenneth Redmond on 05-09-2025 Erythrocyte distribution width (RBC) [Ratio] 13.3 % 11.6-14.6 [facility] Erythrocyte distribution wid th standard deviationOrdered By: Kenneth Redmond on 05-09-2025 Erythrocyte distribution width (RBC) [Ratio] 43.5 fl 35.1-43.9 [facility] Glomerular filtration rate ( GFR) estimation/1.73 sq m using serum, plasma, or whole bOrdered By: Kenneth Redmond on 05-09-2025 GFR/1.73 sq M.predicted among non-blacks MDRD (S/P/Bld) [Vol rate/Area] 62 mL/min/{1.73_m2} >60 [facility] Comment on above: mL/min/1.73m2 CKD-EP I Creatinine Equation (2020) Hematocrit Auto (Bld) [Volum e fraction]Ordered By: Kenneth Redmond on 05-09-2025 Hematocrit (Bld) [Volume fraction] 44.4 % 40-54 [facility] Hemoglobin measurementOrdere d By: Kenneth Redmond on 05-09-2025 Hemoglobin (Bld) [Mass/Vol] 15.0 g/dL 13.0-16.5 [facility] Immature granulocytes/100 WB C Auto (Bld)Ordered By: Kenneth Redmond on 05-09-2025 Immature granulocytes/100 WBC (Bld) 0.600 % 0.0-0.9 [facility] Comment on above: IG% - Immature Granu locytes (promyelocytes, myelocytes and metamyelocytes) > 1% indicates that a LEFT SHIFT is Present. International normalized rat io (INR) calculationOrdered By: Kenneth Redmond on 05-09-2025 INR Coag (Bld) [Relative time] 1.0 {INR} [facility] L499.0042on 05-09-2025 Trop T High Sen 14 ng/L Normal <=22 [facility] Comment on above: Performed By: #### L 499.0042 #### [facility] [address] [facility] [address] L499.0043on 05-09-2025 Trop T High Sen Normal <=22 [facility] Comment on above: Result Comment: Canc elled via OM: Order cancelled - Patient discharged Performed By: #### L 499.0043 #### [facility] [address] [place], [address] L501.4021on 05-09-2025 Trop T High Sen 14 ng/L Normal <=22 [facility] Comment on above: Performed By: #### L 400.0001 #### [facility] [address] [place], [address] L503.7505on 05-09-2025 Natriuretic peptide B (Bld) [Mass/Vol] 86 pg/mL Normal <=900 [facility] Comment on above: Result Comment: Hear t Failure Unlikely: < 300 pg/mL Heart Failure Likely < 50 Years: > 450 pg/mL 50-75 Years: > 900 pg/mL >75 Years: > 1800 pg/mL Performed By: #### L 400.0001 #### [facility] [address] [place], [address] MCV (mean corpuscular volume ) determinationOrdered By: Kenneth Redmond on 05-09-2025 MCV (RBC) [Entitic vol] 89.3 fL 80-94 [facility] Mean corpuscular hemoglobin (MCH) determinationOrdered By: Kenneth Redmond on 05-09-2025 MCH (RBC) [Entitic mass] 30.2 pg 27.0-32.0 [facility] Mean corpuscular hemoglobin concentration (MCHC) determinationOrdered By: Kenneth Redmond on 05-09-2025 MCHC (RBC) [Mass/Vol] 33.8 g/dL 32-36 [facility] Mean platelet volume determi nationOrdered By: Kenneth Redmond on 05-09-2025 Platelet mean volume (Bld) [Entitic vol] 9.7 fL 6.2-12.0 [facility] Monocyte percentageOrdered B y: Kenneth Redmond on 05-09-2025 Monocytes/100 WBC (Bld) 9.3 % 0-10 [facility] Natriuretic peptide.B prohor froy N-Terminal [Mass/volume] in Serum or PlasmaOrdered By: Kenneth Redmond on 05-09-2025 Natriuretic peptide.B prohormone N-Terminal [Mass/Vol] 86 pg/mL <900 [facility] Comment on above: Heart Failure Unlike ly: < 300 pg/mLHeart Failure Likely< 50 Years: > 450 pg/mL50-75 Years: > 900 pg/mL>75 Years: > 1800 pg/mL Neutrophil percentageOrdered By: Kenneth Redmond on 05-09-2025 Neutrophils/100 WBC (Bld) 61.0 % 47-70 [facility] Nucleated red blood cell per centageOrdered By: Kenneth Redmond on 05-09-2025 Nucleated RBC/100 WBC (Bld) [Ratio] 0 % 0-5 [facility] [facility] Timeon 05-09-2025 aPTT Coag (Bld) [Time] 24.4 s Normal 24.1-36.2 [facility] Comment on above: Performed By: #### L 400.0001 #### [facility] [address] [place], [address] Platelet countOrdered By: Magdi Redmond on 05-09-2025 Platelets (Bld) [#/Vol] 221 10*3/uL 150-450 [facility] Potassium measurement (mass/ volume)Ordered By: Kenneth Redmond on 05-09-2025 Potassium (Unsp spec) [Mass/Vol] 3.5 mmol/L 3.3-5.1 [facility] Prothrombin Time w/INRon INR Coag (PPP) [Relative time] 1.0 {INR} Normal [facility] Comment on above: Performed By: #### L 400.0001 #### [facility] [address] [place], [address] PT Coag (PPP) [Time] 12.8 s Normal 11.7-14.9 [facility] Comment on above: Performed By: #### L 400.0001 #### [facility] [address], [address] Prothrombin timeOrdered By: Kenneth Redmond on 05-09-2025 PT Coag (PPP) [Time] 12.8 s 11.7-14.9 [facility] RBC Auto (Bld) [#/Vol]Ordere d By: Kenneth Redmond on 05-09-2025 RBC (Bld) [#/Vol] 4.97 10*6/uL 4.6-6.2 [facility] Serum creatinine measurement (mass/volume)Ordered By: Kenneth Redmond on 05-09-2025 Creatinine [Mass/Vol] 1.25 mg/dL High 0.70-1.20 [facility] Serum glucose measurement (m ass/volume)Ordered By: Kenneth Redmond on 05-09-2025 Glucose [Mass/Vol] 88 mg/dL 70-99 [facility] Serum or plasma calcium raul urement (mass/volume)Ordered By: Kenneth Redmond on 05-09-2025 Calcium [Mass/Vol] 9.7 mg/dL 7.6-11.0 [facility] Serum or plasma urea nitroge n measurement (mass/volume)Ordered By: Kenneth Redmond on 05-09-2025 Urea nitrogen [Mass/Vol] 20 mg/dL High 4-19 [facility] Sodium levelOrdered By: Kenneth Redmond on 05-09-2025 Sodium [Moles/Vol] 140 mmol/L 133-145 [facility] Troponin T.cardiac [Mass/vol ume] in Serum or Plasma by High sensitivity methodOrdered By: Kenneth Redmond on 05-09-2025 Troponin T.cardiac High sensitivity method [Mass/Vol] 14 ng/L <22 [facility] Troponin T.cardiac High sensitivity method [Mass/Vol] 14 ng/L <22 [facility] White blood cell (WBC) count Ordered By: Kenneth Redmond on 05-09-2025 WBC (Bld) [#/Vol] 7.7 10*3/uL 4.4-11.0 [facility] Cardiology Visit Reporton Cardiology Visit Report [facility] [address] [place] [address] OFFICE VISIT Date of Service: 05/03/25 MR#: [id number] Acct: [id number] Name: ALBIN ISSA Rep #: [id number] : 1955 Provider: Dr. Delilah Foster MD Age/Sex: 70/M Location: [facility] Status: Signed HPI HPI History of [...] without angina pectoris 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 Automatic implantable [...] epicondylitis of left elbow Left elbow pain intermediate use of drug Lymphedema of Right Leg Lymphedema of right lower extremity Mixed hyperlipidemia Morbid obesity with BMI of 40.0-44.9, adult Obesity (BMI 30-39.9) Over 65 years old Pacemaker Paresthesia of left upper extremity Phantom pain after amputation of lower extremity Renal calculi Shortness of breath SIRS (systemic inflammatory res (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 Normal [facility] Pacemaker Checkon 01-25-2025 Pacemaker Check [facility] [place] [facility] [address] [place], [place] [id number] Pacemaker Check Date of Service: 01/25/251536 MR#: [id number] Acct: [id number] Name: ALBIN ISSA Rep #: [id number] : 1955 From: Bethany Deng Age/Sex: 69/M [place] [facility] [place]: Signed Billing Codes ICD Device Billin ICD Dev Prog Eval, Dual Assessment and Plan Assessment and Plan (1) ICD (implantable cardioverter-defibril lator) in place: Status: Chronic Comment: ICD Implant 2009 (2) Ischemic cardiomyopathy: Status: Chronic Comment: EF 45%. Stage I diastolic dysfunction 01/25/251537 Date Bethany Perera Signature: Date (if applicable) CC: Normal [facility] Comprehensive Metabolic Prof ilon 12-11-2024 Albumin [Mass/Vol] 3.6 g/dL Normal 3.2-5.0 [facility] Comment on above: Performed By: #### L 400.0001 #### [facility] [address] [place], [place], [id number] Albumin/Globulin [Mass ratio] 1.1 {ratio} Normal 0.9-2.4 [facility] Comment on above: Performed By: #### L 400.0001 #### [facility] [address] [place], [place], [id number] ALK P 148 U/L High 45-117 [facility] Comment on above: Performed By: #### L 400.0001 #### [facility] [address] [place], [address] ALT [Catalytic activity/Vol] 34 U/L Normal 16-61 [facility] Comment on above: Performed By: #### L 400.0001 #### [facility] [address] [place], [address] AST [Catalytic activity/Vol] 14 U/L Low 15-37 [facility] Comment on above: Performed By: #### L 400.0001 #### [facility] [address] [place], [address] Bilirubin [Mass/Vol] 0.40 mg/dL Normal 0.20-1.00 [facility] Comment on above: Result Comment: For patients on eltrombopag therapy, use of Dimension [place] TBIL is not recommended. Performed By: #### L 400.0001 #### [facility] [address] [place], [address] BUN/CRE 12.3 RATIO Normal 10-20 [facility] Comment on above: Performed By: #### L 400.0001 #### [facility] [address] [place], [address] CA,Total 9.9 mg/dL Normal 8.5-10.1 [facility] Comment on above: Performed By: #### L 400.0001 #### [facility] [address] [place], [address] Chloride [Moles/Vol] 108 mmol/L High 98-107 [facility] Comment on above: Performed By: #### L 400.0001 #### [facility] [address] [place], [address] CO2 [Moles/Vol] 28.0 mmol/L Normal 21.0-32.0 [facility] Comment on above: Performed By: #### L 400.0001 #### [facility] [address] [place], [address] Creatinine [Mass/Vol] 1.06 mg/dL Normal 0.70-1.30 [facility] Comment on above: Result Comment: The validity of the calculated GFR GFRAA in patients over 70 years has not been determined. Clinical correlation is essential. Performed By: #### L 400.0001 #### [facility] [address] [place], [address] EST GFR - AA 89 mL/min Normal >60 [facility] Comment on above: Result Comment: Afri can Togolese GFR Calc Performed By: #### L 400.0001 #### [facility] [address] [place], [address] GAP 4 Low 5-15 [facility] Comment on above: Performed By: #### L 400.0001 #### [facility] [address] [place], [address] GFR/1.73 sq M.predicted among non-blacks MDRD (S/P/Bld) [Vol rate/Area] 74 mL/min/{1.73_m2} Normal >60 [facility] Comment on above: Result Comment: Non- GFR Calc Performed By: #### L 400.0001 #### [facility] [address] [place], [address] Globulin (S) [Mass/Vol] 3.4 g/dL Normal 2.2-4.2 [facility] Comment on above: Performed By: #### L 400.0001 #### [facility] [address] [place], [address] Glucose [Mass/Vol] 126 mg/dL High 74-106 [facility] Comment on above: Result Comment: Fast ing Glucose result greater than or equal to 126 mg/dL suggests DIABETES MELLITUS per A.D.A. criteria. Performed By: #### L 400.0001 #### [facility] [address] [place], [address] Potassium [Moles/Vol] 3.6 mmol/L Normal 3.5-5.1 [facility] Comment on above: Performed By: #### L 400.0001 #### [facility] [address] [place], [address] Sodium [Moles/Vol] 140 mmol/L Normal 136-145 [facility] Comment on above: Performed By: #### L 400.0001 #### [facility] [address] [place], [address] T PROT 7.0 g/dL Normal 6.4-8.2 [facility] Comment on above: Performed By: #### L 400.0001 #### [facility] [address] [place], [address] Urea nitrogen [Mass/Vol] 13 mg/dL Normal 7-18 [facility] Comment on above: Performed By: #### L 400.0001 #### [facility] [address] [place], [address] Hemoglobin A1con 12-11-2024 HbA1c (Bld) [Mass fraction] 6.0 % High 3.8-5.6 [facility] Comment on above: Result Comment: Norm al < 5.7 % Prediabetic 5.7 - 6.4 % Diabetic >or= 6.5 % Please note range changes. Performed By: #### L 400.0001 #### [facility] [address] [place], [address] Lipid Profileon 12-11-2024 Cholesterol [Mass/Vol] 113 mg/dL Normal 200 [facility] Comment on above: Result Comment: <200 mg/dL Desirable 200-240 mg/dL Borderline >240 mg/dL High Risk Performed By: #### L 400.0001 #### [facility] [address] [place], [address] Cholesterol in HDL [Mass/Vol] 50 mg/dL Normal [facility] Comment on above: Result Comment: The drugs N-Acetylcysteine and Metamizole may falsely depress this assay. Reference Range HDL <40 mg/dL Low HDL Cholesterol HDL >or= 60 mg/dL High HDL Cholesterol Performed By: #### L 400.0001 #### [facility] [address] [place], [address] Cholesterol in LDL [Mass/Vol] 39 mg/dL Normal 0-130 [facility] Comment on above: Performed By: #### L 400.0001 #### [facility] [address] [place], [address] Cholesterol in VLDL [Mass/Vol] 24 mg/dL Normal 5-40 [facility] Comment on above: Performed By: #### L 400.0001 #### [facility] [address] [place], [address] Triglyceride [Mass/Vol] 122 mg/dL Normal [facility] Comment on above: Result Comment: The drugs N-Acetylcysteine and Metamizole may falsely depress this assay. Serum Triglycerides Reference Interval Normal <150 mg/dL Borderline high 150 - 199 mg/dL High 200 - 499 mg/dL Very High > or = 500 mg/dL Performed By: #### L 400.0001 #### [facility] [address] [place], [address] Protein+Creatinine Ratio,Uri neon 12-11-2024 PROT:CRE RATIO Normal 0-200 [facility] Comment on above: Result Comment: UTO Performed By: #### L 400.0001 #### [facility] [address], [address] PROTEIN,UR.RAN. Normal <11.9 [facility] Comment on above: Result Comment: UTO Performed By: #### L 400.0001 #### [facility] [address] [place], [address] UR CREAT Normal NO RANGE EST. [facility] Comment on above: Result Comment: UTO Performed By: #### L 400.0001 #### [facility] [address] [place], [address] Bedside Glucoseon 11-18-2024 FINGERSTICK GLU 109 mg/dL High 74-106 [facility] Comment on above: Result Comment: EVAN MELISSA OF PATIENT CARE PER NURSING PROTOCOL Performed By: #### L 500.2500, L100.0100 #### [facility] [address] [place], [address] Discharge Instructionon 11-01 Discharge Instruction [facility] Medical Records Department [address] [place] [address] Instructions for Home/Discharge Instructions 11/18/24 0733 MR#: [id number] Acct: [id number] Name: ALBIN ISSA Rep #: [id number] : 1955 69 From: Ravi Holder MD PCP: Dr. Speedy Boswell MD Status:[place] [facility] Discharge Instructions DC O2, CPAP, BIPAP needs Additional Home O2 Discharge instructions: No Follow Up Care Test Results: Test results from this visit will be discussed in further detail at your follow-up appointment, if applicable. Discharge Plan Admission Primary Reason for Your Visit: left laser stone Attending Provider: Ravi Holder Primary Care Provider: Speedy Boswell Instructions Print Language: East Timorese Discharge Orders/Prescriptions Prescriptions: New ciprofloxacin HCl [Cipro] [...] MD CC: Dr. Speedy Boswell MD Signed [facility] MR/POSTOP.MANDY 11-18-2024 MR/POSTOP.[facility] Medical Records Department [address] [place] [address] Anesthesia Postop Eval I 11/18/24 1008 MR#: [id number] Acct: [id number] Name: ALBIN ISSA Rep #: [id number] : 1955 69 From: Milka Gillis PCP: Dr. Speedy Boswell MD Status:REG IAC Y Race: C Location: [place] [address] Anesthesia: Postop Eval I Current Vital Signs [...] Milka Perera Signature: Date CC: Signed Normal [facility] MR/[id number] 11-18-2024 [facility] Medical Records Department [address] [place] [address] Anesthesia Postop Eval II 11/18/24 1102 MR#: [id number] Acct: [id number] Name: ALBIN ISSA Rep #: [id number] : 1955 69 From: Niall Mayes MD PCP: Dr. 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 Spontaneous unlabored Yes 11/18/24 10:08 POLE FRAMER MACHINE.CSIR respirations Mental status nausea No 11/18/24 10:08 POLE FRAMER MACHINE.CSIR Vomiting No 11/18/24 10:08 POLE FRAMER MACHINE.CSIR Anesthesia Postop Eval I: Fluid Summary Crystalloid volume administer 800 11/18/24 10:08 POLE FRAMER MACHINE.CSIR (ml) Colloids volume administered ( ml) Blood Product volume administered (ml) Total IV fluid infused 800 11/18/24 10:08 POLE FRAMER MACHINE.CSIR Anesthesia Postop Eval I: Summary Notes Anesthesia Complication No 11/18/24 10:08 POLE FRAMER MACHINE.CSIR Anesthesia Complication Comment: Post-operative progress note Anesthesia: Postop Eval II Evaluation Mental status: Awake Pain Level: 0 nausea: No Vomiting: No 11/18/24 1102 Date Niall Perera Signature: Date CC: Signed Normal [facility] Operative Reporton 4 Operative Report [facility] Medical Records Department [address] [place] [address] Operative Report 11/18/24 0958 MR#: [id number] Acct: [id number] Name: ALBIN ISSA Rep #: [id number] : 1955 69 From: Ravi Holder MD PCP: Dr. Speedy Boswell MD Status:[facility] Location: [place] [address] Operative Report (Standard) Operative Information Date of Procedure: 11/18/24 Pre-Operative Diagnosis: Left kidney stone Post-Operative Diagnosis: The same Surgery/Procedure Performed: Cystoscopy left ureteroscopy laser lithotripsy of stone, no stent land agent: No Type of Anesthesia: General RN Documented [...] went into the bladder with a 21 [place] rigid cystourethroscope through the urethra. Upon entering [...] MD; Dr. Speedy Boswell MD Signed Normal [facility] Cardiology Visit Reporton Cardiology Visit Report [facility] [address] [place] [address] OFFICE VISIT Date of Service: 11/04/24 MR#: [id number] Acct: [id number] Name: ALBIN ISSA Rep #: [id number] : 1955 Provider: Dr. 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 Normal [facility] Abdomen/Pelvis without Conto n 10-21-2024 Abdomen/Pelvis without Cont [facility] Imaging Services [address] [place] [address] Abdomen/Pelvis without Cont MR#: [id number] Acct: [id number] Name: ALBIN ISSA Rep #: [id number] : 1955 M 69 From: Louis Steiner PCP: Dr. Speedy Boswell MD Status: [facility] ER Study: Abdomen/Pelvis without Cont Date of Exam: 10/03 Exam# [id number] Ordering Dr: Manuel Hart DO [id number] EXAM: CT ABDOMEN AND PELVIS WITHOUT INTRAVENOUS [...] Dr. Speedy Boswell MD; Manuel Hart DO [employer]oured [employer] Escort: Signed Normal [facility] Basic Metabolic Profile (BMP )on 10-21-2024 BUN/CRE 11.9 RATIO Normal 09-20 [facility] Comment on above: Performed By: #### L 500.2500, L100.0100 #### [facility] [address] [place], [address] CA,Total 9.6 mg/dL Normal 8.5-10.1 [facility] Comment on above: Performed By: #### L 500.2500, L100.0100 #### [facility] [address] [place], [address] Chloride [Moles/Vol] 107 mmol/L Normal 98-107 [facility] Comment on above: Performed By: #### L 500.2500, L100.0100 #### [facility] [address] [place], [address] CO2 [Moles/Vol] 26.0 mmol/L Normal 21.0-32.0 [facility] Comment on above: Performed By: #### L 500.2500, L100.0100 #### [facility] [address] [place], [address] Creatinine [Mass/Vol] 1.26 mg/dL Normal 0.70-1.30 [facility] Comment on above: Result Comment: The validity of the calculated GFR GFRAA in patients over 70 years has not been determined. Clinical correlation is essential. Performed By: #### L 500.2500, L100.0100 #### [facility] [address] [place], [address] ECRCL 73.08 ml/min Normal [facility] Comment on above: Performed By: #### L 500.2500, L100.0100 #### [facility] [address] [place], [address] EST GFR - AA 73 mL/min Normal >60 [facility] Comment on above: Result Comment: Afri can Togolese GFR Calc Performed By: #### L 500.2500, L100.0100 #### [facility] [address] [place], [address] GAP 5 Normal 5-15 [facility] Comment on above: Performed By: #### L 500.2500, L100.0100 #### [facility] [address] [place], [address] GFR/1.73 sq M.predicted among non-blacks MDRD (S/P/Bld) [Vol rate/Area] 60 mL/min/{1.73_m2} Normal >60 [facility] Comment on above: Result Comment: Non- GFR Calc Performed By: #### L 500.2500, L100.0100 #### [facility] [address] [place], [address] Glucose [Mass/Vol] 141 mg/dL High 74-106 [facility] Comment on above: Result Comment: Fast ing Glucose result greater than or equal to 126 mg/dL suggests DIABETES MELLITUS per A.D.A. criteria. Performed By: #### L 500.2500, L100.0100 #### [facility] [address] [place], [address] Potassium [Moles/Vol] 3.5 mmol/L Normal 3.5-5.1 [facility] Comment on above: Performed By: #### L 500.2500, L100.0100 #### [facility] [address] [place], [address] Sodium [Moles/Vol] 138 mmol/L Normal 136-145 [facility] Comment on above: Performed By: #### L 500.2500, L100.0100 #### [facility] [address] [place], [address] Urea nitrogen [Mass/Vol] 15 mg/dL Normal 7-18 [facility] Comment on above: Performed By: #### L 500.2500, L100.0100 #### [facility] [address] [place], [address] CBC W/Diff, Automatedon 11-2 0-2024 Absolute Lymph 1.63 X10 3/uL Normal 0.83-4.51 [facility] Comment on above: Performed By: #### L 500.2500, L100.0100 #### [facility] [address] [place], [address] Absolute Neut 4.7 X10 3/uL Normal 2.0-7.7 [facility] Comment on above: Performed By: #### L 500.2500, L100.0100 #### [facility] [address] [place], [address] Basophils/100 WBC (Bld) 0.7 % Normal 0-1 [facility] Comment on above: Performed By: #### L 500.2500, L100.0100 #### [facility] [address] [place], [address] Eosinophils/100 WBC (Bld) 2.2 % Normal 0-5 [facility] Comment on above: Performed By: #### L 500.2500, L100.0100 #### [facility] [address] [place], [address] Erythrocyte distribution width (RBC) [Ratio] 13.0 % Normal 11.6-14.6 [facility] Comment on above: Performed By: #### L 500.2500, L100.0100 #### [facility] [address] [place], [address] Hematocrit (Bld) [Volume fraction] 41.9 % Normal 40-54 [facility] Comment on above: Performed By: #### L 500.2500, L100.0100 #### [facility] [address] [place], [address] Hemoglobin (Bld) [Mass/Vol] 14.1 g/dL Normal 13.0-16.5 [facility] Comment on above: Performed By: #### L 500.2500, L100.0100 #### [facility] [address] [place], [address] IG% 0.400 Normal 0.0-0.9 [facility] Comment on above: Result Comment: IG% - Immature Granulocytes (promyelocytes, myelocytes and metamyelocytes) > 1% indicates that a LEFT SHIFT is Present. Performed By: #### L 500.2500, L100.0100 #### [facility] [address] [place], [address] Lymphocytes/100 WBC (Bld) 22.6 % Normal 19-41 [facility] Comment on above: Performed By: #### L 500.2500, L100.0100 #### [facility] [address] [place], [address] MCH (RBC) [Entitic mass] 30.1 pg Normal 27.0-32.0 [facility] Comment on above: Performed By: #### L 500.2500, L100.0100 #### [facility] [address] [place], [address] MCHC (RBC) [Mass/Vol] 33.7 g/dL Normal 32-36 [facility] Comment on above: Performed By: #### L 500.2500, L100.0100 #### [facility] [facility] [address] [place], [address] MCV (RBC) [Entitic vol] 89.3 fL Normal 80-94 [facility] Comment on above: Performed By: #### L 500.2500, L100.0100 #### [facility] [address] [place], [address] Monocytes/100 WBC (Bld) 8.3 % Normal 0-10 [facility] Comment on above: Performed By: #### L 500.2500, L100.0100 #### [facility] [address] [place], [address] Neutrophils/100 WBC (Bld) 65.8 % Normal 47-70 [facility] Comment on above: Performed By: #### L 500.2500, L100.0100 #### [facility] [address] [place], [address] Nucleated RBC (Bld) [#/Vol] 0 10*3/uL Normal 0-5 [facility] Comment on above: Performed By: #### L 500.2500, L100.0100 #### [facility] [address] [place], [address] Platelet mean volume (Bld) [Entitic vol] 9.6 fL Normal 6.2-12.0 [facility] Comment on above: Performed By: #### L 500.2500, L100.0100 #### [facility] [address] [place], [address] Platelets (Bld) [#/Vol] 202 10*3/uL Normal 150-450 [facility] Comment on above: Performed By: #### L 500.2500, L100.0100 #### [facility] [address] [place], [address] RBC (Bld) [#/Vol] 4.69 10*6/uL Normal 4.6-6.2 [facility] Comment on above: Performed By: #### L 500.2500, L100.0100 #### [facility] [address] [place], [address] RDW SD 42.3 fl Normal 35.1-43.9 [facility] Comment on above: Performed By: #### L 500.2500, L100.0100 #### [facility] [address] [place], [address] WBC (Bld) [#/Vol] 7.2 10*3/uL Normal 4.4-11.0 [facility] Comment on above: Performed By: #### L 500.2500, L100.0100 #### [facility] [address] [place], [address] Emergency Department Summary on 10-21-2024 Emergency Department Summary [facility] Records Department [address] [place] [address] Emergency Department Summary 10/21/24 MR#: [id number] Acct: [id number] Name: ALBIN ISSA Rep #: [id number] : 1955 69 From: Manuel Hart DO PCP: Dr. 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 Normal [facility] Urinalysis, Completeon 10-21 WBC 0-5 SEEN Normal 0-5 [facility] Comment on above: Order Comment: TASHI CTOR TO SPECIFY Performed By: #### L 400.0001 #### [facility] [address] [place], [address] BACTERIA 0 SEEN Normal None Seen [facility] Comment on above: Order Comment: TASHI CTOR TO SPECIFY Performed By: #### L 400.0001 #### [facility] [address] [place], [address] EPI,SQUAMOUS 0 SEEN Normal 0-5 [facility] Comment on above: Order Comment: TASHI CTOR TO SPECIFY Performed By: #### L 400.0001 #### [facility] [address] [place], [address] Mucus Ql (Urine sed) 0 SEEN Normal [facility] Comment on above: Order Comment: TASHI CTOR TO SPECIFY Performed By: #### L 400.0001 #### [facility] [address] [place], [address] RBC 0 SEEN Normal 0-5 [facility] Comment on above: Order Comment: TASHI CTOR TO SPECIFY Performed By: #### L 400.0001 #### [facility] [address] [place], [address] Comprehensive Metabolic Prof ilon 09-10-2024 Albumin [Mass/Vol] 3.7 g/dL Normal 3.2-5.0 [facility] Comment on above: Performed By: #### L 500.4100, L502.0500, L500.4050 #### [facility] [address] [place], [address] Albumin/Globulin [Mass ratio] 1.0 {ratio} Normal 0.9-2.4 [facility] Comment on above: Performed By: #### L 500.4100, L502.0500, L500.4050 #### [facility] [address] [place], [address] ALK P 136 U/L High 45-117 [facility] Comment on above: Performed By: #### L 500.4100, L502.0500, L500.4050 #### [facility] [address] [place], [address] ALT [Catalytic activity/Vol] 34 U/L Normal 16-61 [facility] Comment on above: Performed By: #### L 500.4100, L502.0500, L500.4050 #### [facility] [address] [place], [address] AST [Catalytic activity/Vol] 19 U/L Normal 15-37 [facility] Comment on above: Performed By: #### L 500.4100, L502.0500, L500.4050 #### [facility] [address] [place], [address] Bilirubin [Mass/Vol] 0.70 mg/dL Normal 0.20-1.00 [facility] Comment on above: Result Comment: For patients on eltrombopag therapy, use of Dimension [place] TBIL is not recommended. Performed By: #### L 500.4100, L502.0500, L500.4050 #### [facility] [address] [place], [address] BUN/CRE 16.0 RATIO Normal 10-20 [facility] Comment on above: Performed By: #### L 500.4100, L502.0500, L500.4050 #### [facility] [address] [place], [address] CA,Total 10.3 mg/dL High 8.5-10.1 [facility] Comment on above: Performed By: #### L 500.4100, L502.0500, L500.4050 #### [facility] [address] [place], [address] Chloride [Moles/Vol] 108 mmol/L High 98-107 [facility] Comment on above: Performed By: #### L 500.4100, L502.0500, L500.4050 #### [facility] [address] [place], [address] CO2 [Moles/Vol] 24.0 mmol/L Normal 21.0-32.0 [facility] Comment on above: Performed By: #### L 500.4100, L502.0500, L500.4050 #### [facility] [address] [place], [address] Creatinine [Mass/Vol] 1.00 mg/dL Normal 0.70-1.30 [facility] Comment on above: Result Comment: The validity of the calculated GFR GFRAA in patients over 70 years has not been determined. Clinical correlation is essential. Performed By: #### L 500.4100, L502.0500, L500.4050 #### [facility] [address] [place], [address] EST GFR - AA 95 mL/min Normal >60 [facility] Comment on above: Result Comment: Afri can Togolese GFR Calc Performed By: #### L 500.4100, L502.0500, L500.4050 #### [facility] [address] [place], [address] GAP 5 Normal 5-15 [facility] Comment on above: Performed By: #### L 500.4100, L502.0500, L500.4050 #### [facility] [address] [place], [address] GFR/1.73 sq M.predicted among non-blacks MDRD (S/P/Bld) [Vol rate/Area] 79 mL/min/{1.73_m2} Normal >60 [facility] Comment on above: Result Comment: Non- GFR Calc Performed By: #### L 500.4100, L502.0500, L500.4050 #### [facility] [address] [place], [address] Globulin (S) [Mass/Vol] 3.6 g/dL Normal 2.2-4.2 [facility] Comment on above: Performed By: #### L 500.4100, L502.0500, L500.4050 #### [facility] [address] [place], [address] Glucose [Mass/Vol] 119 mg/dL High 74-106 [facility] Comment on above: Result Comment: Fast ing Glucose result from 100 to 125 mg/dL suggests IMPAIRED HOMEOSTASIS per A.D.A. criteria. Performed By: #### L 500.4100, L502.0500, L500.4050 #### [facility] [address] [place], [address] Potassium [Moles/Vol] 4.3 mmol/L Normal 3.5-5.1 [facility] Comment on above: Performed By: #### L 500.4100, L502.0500, L500.4050 #### [facility] [address] [place], [address] Sodium [Moles/Vol] 138 mmol/L Normal 136-145 [facility] Comment on above: Performed By: #### L 500.4100, L502.0500, L500.4050 #### [facility] [address] [place], [address] T PROT 7.3 g/dL Normal 6.4-8.2 [facility] Comment on above: Performed By: #### L 500.4100, L502.0500, L500.4050 #### [facility] [address] [place], [address] Urea nitrogen [Mass/Vol] 16 mg/dL Normal 7-18 [facility] Comment on above: Performed By: #### L 500.4100, L502.0500, L500.4050 #### [facility] [address] [place], [address] Lipid Profileon 09-10-2024 Cholesterol [Mass/Vol] 118 mg/dL Normal 200 [facility] Comment on above: Result Comment: <200 mg/dL Desirable 200-240 mg/dL Borderline >240 mg/dL High Risk Performed By: #### L 500.4100, L502.0500, L500.4050 #### [facility] [address] [place], [address] Cholesterol in HDL [Mass/Vol] 39 mg/dL Low [facility] Comment on above: Result Comment: The drugs N-Acetylcysteine and Metamizole may falsely depress this assay. Reference Range HDL <40 mg/dL Low HDL Cholesterol HDL >or= 60 mg/dL High HDL Cholesterol Performed By: #### L 500.4100, L502.0500, L500.4050 #### [facility] [address] [place], [address] Cholesterol in LDL [Mass/Vol] 55 mg/dL Normal 0-130 [facility] Comment on above: Performed By: #### L 500.4100, L502.0500, L500.4050 #### [facility] [address] [place], [address] Cholesterol in VLDL [Mass/Vol] 24 mg/dL Normal 5-40 [facility] Comment on above: Performed By: #### L 500.4100, L502.0500, L500.4050 #### [facility] [address] [place], [address] Triglyceride [Mass/Vol] 121 mg/dL Normal [facility] Comment on above: Result Comment: The drugs N-Acetylcysteine and Metamizole may falsely depress this assay. Serum Triglycerides Reference Interval Normal <150 mg/dL Borderline high 150 - 199 mg/dL High 200 - 499 mg/dL Very High > or = 500 mg/dL Performed By: #### L 500.4100, L502.0500, L500.4050 #### [facility] [address] [place], [address] Microalbumin,Random Urineon 09-10-2024 MICROALBUMIN,UR 11.2 mg/L Normal NO RANGE EST. [facility] Comment on above: Performed By: #### L 500.4100, L502.0500, L500.4050 #### [facility] [address] [place], [address] Extremity Upper without Cont raon 08-01-2024 Extremity Upper without Contra [facility] [address] [place] [address] Extremity Upper without Contra MR#: [id number] Acct: [id number] Name: ALBIN ISSA Rep #: [id number] : 1955 M 69 From: Jhon Gage MD PCP: Dr. Speedy Boswell MD Status: REG CLI Study: Extremity Upper without Contra Date of Exam: 0 08/01/24 Exam# [id number] Ordering Dr: Speedy Boswell MD [id number] EXAM: CT RIGHT UPPER EXTREMITY WITHOUT INTRAVENOUS [...] 23:55 EDT Reading Location ID and State: [facility] / [place] Tel , Service support , CC: Dr. 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 Speedy Boswell MD Status: REG CLI Study: Extremity Upper without Contra Date of Exam: 0 08/01/24 Exam# [id number] Ordering Dr: Speedy Boswell MD [id number] EXAM: CT LEFT UPPER EXTREMITY WITHOUT INTRAVENOUS [...] EDT , CC: Dr. Speedy Boswell MD Armoured Car Escort: Signed [facility] Office Visiton 03-30-2024 Follow-up visit [id number] Albin Issa 1955 M Date Provider Department Center 03/30/2024 [facility] None Family History Problem Relation Age of Onset Heart attack Mother Cancer Father Comments: liver Family Status - Relation Status Age at Mother Father Daughter Alive Level of Service:08382 IN OFFICE/OUTPT VISIT,PROCEDURE ONLY Reason for Visit and Comments: Follow-up [889207] - USG left ankle injection [facility] PATINSon 03-30-2024 [facility] Patient Care [...] the office as soon as possible at [phone] Normal [facility] Progress Noteon 03-30-2024 Progress Note [facility] [address] [facility] [address] Dept: [phone] Dept Chief Complaint Patient presents with Follow-up [...] prior to signing but 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 Normal [employer] [facility] No Panel InformationOrdered By: Hannah Howe on 01-16-2024 Prostate Specific Antigen Screen 0.33 ng/mL 0.00-4.00 [facility] Comment on above: This test was perfor med using the TPSA assay method for [employer] [facility] chemistry system. Values obtained with differentassay methods cannot be used interchangably.When changing PSA assays in the course of monitoring apatient, additional sequential testing should be carriedout to confirm baseline values. EP PROCEDURE - EPS/ABLATION/ DEVICEon 01-08-2024 EP PROCEDURE - EPS/ABLATION/DEVICE Pt is a 68M ICM s/p [place] DC ICD, CAD s/p AK 2004, s/p CABG 2004, s/p right AKA amputation, HLD. He was evaluated in EP clinic on 11/21/2023 for consultation. He reported occasional dyspnea on exertion. 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 He underwent successful placement of additional RA lead. Device generator exchanged. Excellent lead parameters. IV Vancomycin is utilized because: Physician/TOP EXECUTIVE/PA or pharmacist documentation of increased MRSA rate, [...] EPS/Ablation/Device Ordering Physician: DAVID RAMIREZ Order #: [id number] Study Date: 01/06/2024 Patient Information Name MRN Description Albin Issa [id number] 68 y.o. male Physicians Panel Physicians Referring [...] s/p [facility] DC ICD, CAD s/p AK 2004, s/p CABG 2004, s/p right AKA amputation, HLD. He was evaluated in EP clinic on 11/21/2023 for consultation. He reported occasional dyspnea on exertion. 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 He underwent successful placement of additional RA lead. Device generator exchanged. Excellent lead parameters. IV Vancomycin is utilized because: Physician/TOP EXECUTIVE/PA or pharmacist documentation of increased MRSA rate, [...] - Explanted Model/Cat number: [id number] Serial number: [id number] Date Explanted: 01/06/2024 Pocket Location: Pre-pectoral As of 01/06/2024 Status: Explanted Lead Securement: 2 set screws torqued Defibrillator Crd [id number] Fortify Asr Parylene 2 - [id number] - Implanted Inventory item: DEFIBRILLATOR CRD [id number] FORTIFY ASR PARYLENE 2 Model/Cat number: [id number] Serial number: [id number] Professor Of Marketing: [employer] Date Implanted: 01/06/2024 Initial Device: No Pocket Location: Pre-pectoral P (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 Normal [facility] CHEM 6 (LYTES, BUN CREA)on 0 01-07-2024 Anion gap [Moles/Vol] 13 mmol/L Normal 7-17 [facility] Comment on above: Performed By: #### Nilam HOUSE CHM6 #### U [facility] (DEFAULT) [address] [place] [address] Chloride [Moles/Vol] 105 mmol/L Normal 98-108 [facility] Comment on above: Performed By: #### Nilam HOUSE CHM6 #### [facility] (DEFAULT) [address] [place] [address] CO2 [Moles/Vol] 25 mmol/L Normal 21-31 [facility] Comment on above: Performed By: #### Nilam HOUSE CHM6 #### [facility] (DEFAULT) [address] [place] [address] Creatinine [Mass/Vol] 1.24 mg/dL Normal 0.70-1.30 [facility] Comment on above: Performed By: #### Nilam HOUSE CHM6 #### U [facility] (DEFAULT) [address] [place] [address] GFR/1.73 sq M.predicted among non-blacks MDRD (S/P/Bld) [Vol rate/Area] 63 mL/min/{1.73_m2} Normal >=60 [facility] Comment on above: Result Comment: Repo rted eGFR is based on the CKD-EPI 2020 equation using creatinine, age, and sex. Performed By: #### Nilam HOUSE CHM6 #### [facility] (DEFAULT) [address] [place] [address] Potassium [Moles/Vol] 4.2 mmol/L Normal 3.5-5.0 [facility] Comment on above: Performed By: #### Nilam HOUSE CHM6 #### [facility] (DEFAULT) [address] [place] [address] Sodium [Moles/Vol] 139 mmol/L Normal 135-145 [facility] Comment on above: Performed By: #### Nilam HOUSE CHM6 #### U [facility] (DEFAULT) [address] [place] [address] Urea nitrogen [Mass/Vol] 19 mg/dL Normal 7-25 [facility] Comment on above: Performed By: #### CHANTELL DYSON6 #### [facility] (DEFAULT) [address] [place] [address] Urea nitrogen/Creatinine [Mass ratio] 15 mg/mg Normal [facility] Comment on above: Performed By: #### CHANTELL DYSON6 #### [facility] (DEFAULT) [address] [place] [address] Anion gap [Moles/Vol] 13 mmol/L 7 - 17 mmol/L [facility] Chloride [Moles/Vol] 105 mmol/L 98 - 10 8 mmol/L [facility] CO2 [Moles/Vol] 25 mmol/L 21 - 31 mmol/L [facility] Creatinine [Mass/Vol] 1.24 mg/dL 0.70 - 1.30 mg/dL [facility] eGFR, CKD-EPI, Male 63 - PINF [facility] Comment on above: Reported eGFR is bas ed on the CKD-EPI 2020 equation using creatinine, age, and sex. Potassium [Moles/Vol] 4.2 mmol/L 3.5 - 5.0 mmol/L [facility] Sodium [Moles/Vol] 139 mmol/L 135 - 145 mmol/L [facility] Urea nitrogen [Mass/Vol] 19 mg/dL 7 - 25 mg/dL [facility] Urea nitrogen/Creatinine [Mass ratio] 15 mg/mg [facility] DEVICE EVALUATION (SCANNED)o n 01-07-2024 [facility] Radiology Study observation (narrative) [facility] EXTRA LAVENDER TOPon 024 [facility] MAGNESIUMon 01-07-2024 Magnesium [Mass/Vol] 2.1 mg/dL Normal 1.6-2.6 [facility] Comment on above: Performed By: #### CHANTELL DYSON6 #### [facility] (DEFAULT) [address] [place] [address] Interpretation and review of laboratory results Normal [facility] Magnesium [Mass/Vol] 2.1 mg/dL 1.6 - 2 .6 mg/dL [facility] No Panel Informationon 01-07 [facility] CBC AND ELECTRONIC DIFFon Basophils (Bld) [#/Vol] 0.07 10*3/uL Normal 0.00-0.09 [facility] Comment on above: Performed By: #### L AB980 #### [facility] (DEFAULT) [address] [place] [address] Basophils/100 WBC (Bld) 0.8 % Normal O [facility] Comment on above: Performed By: #### L AB980 #### [facility] (DEFAULT) [address] [place] [address] DIFF STATUS Electronic Differential Normal [facility] Comment on above: Performed By: #### L AB980 #### [facility] (DEFAULT) [address] [place] [address] Eosinophils (Bld) [#/Vol] 0.32 10*3/uL Normal 0.00-0.48 [facility] Comment on above: Performed By: #### L AB980 #### [facility] (DEFAULT) [address] [place] [address] Eosinophils/100 WBC (Bld) 3.7 % Normal [facility] Comment on above: Performed By: #### L AB980 #### [facility] (DEFAULT) [address] [place] [address] Hematocrit (Bld) [Volume fraction] 41.5 % Normal 39.6-48.8 [facility] Comment on above: Performed By: #### L AB980 #### [facility] (DEFAULT) [address] [place] [address] Hemoglobin (Bld) [Mass/Vol] 13.8 g/dL Normal 13.4-16.8 [facility] Comment on above: Performed By: #### L AB980 #### U [facility] (DEFAULT) [address] [place] [address] Immature Grans % 0.6 % Normal [facility] Comment on above: Performed By: #### L AB980 #### U [facility] (DEFAULT) [address] [place] [address] Immature Grans Absolute 0.05 K/uL Normal <=0.07 O [facility] Comment on above: Performed By: #### L AB980 #### [facility] (DEFAULT) [address] [place] [address] Lymphocytes (Bld) [#/Vol] 2.14 10*3/uL Normal 0.83-3.57 [facility] Comment on above: Performed By: #### L AB980 #### [facility] (DEFAULT) [address] [address] Lymphocytes/100 WBC (Bld) 24.7 % Normal [facility] Comment on above: Performed By: #### L AB980 #### [facility] (DEFAULT) [address] [place] [address] MCV (RBC) [Entitic vol] 89.2 fL Normal 79.0-94.5 [facility] Comment on above: Performed By: #### L AB980 #### [facility] (DEFAULT) [address] [place] [address] Mean Cell Hgb 29.7 pg Normal 26.1-33.3 [facility] Comment on above: Performed By: #### L AB980 #### [facility] (DEFAULT) [address] [address] Mean Cell Hgb Conc 33.3 g/dL Normal 31.9-36.5 [facility] Comment on above: Performed By: #### L AB980 #### [facility] (DEFAULT) [address] [place] [address] Monocytes (Bld) [#/Vol] 0.64 10*3/uL Normal 0.24-0.93 [facility] Comment on above: Performed By: #### L AB980 #### [facility] (DEFAULT) [address] [address] Monocytes/100 WBC (Bld) 7.4 % Normal O [facility] Comment on above: Performed By: #### L AB980 #### [facility] (DEFAULT) [address] [place] [address] Nucleated RBC 0.0 /100 WBC Normal <=0.2 [facility] Comment on above: Performed By: #### L AB980 #### [facility] (DEFAULT) [address] [address] Platelet mean volume (Bld) [Entitic vol] 9.3 fL Normal 8.7-12.3 [facility] Comment on above: Performed By: #### L AB980 #### [facility] (DEFAULT) [address] [place] [address] Platelets (Bld) [#/Vol] 220 10*3/uL Normal 146-337 [facility] Comment on above: Performed By: #### L AB980 #### [facility] (DEFAULT) [address] [address] [address] RBC (Bld) [#/Vol] 4.65 10*6/uL Normal 4.38-5.83 [facility] Comment on above: Performed By: #### L [id number] #### [facility] (DEFAULT) [address] [place] [address] RBC Distribution 13.0 % Normal 10.9-14.3 [facility] Comment on above: Performed By: #### L [id number] #### [facility] (DEFAULT) [address] [address] Segs + Bands Auto 62.8 % Normal [facility] Comment on above: Performed By: #### L [id number] #### [facility] (DEFAULT) [address] [place] [address] Segs + Bands,Absolute Auto 5.44 K/uL Normal 1.57-6.19 [facility] Comment on above: Performed By: #### L AB980 #### [facility] (DEFAULT) [address] [place] [address] WBC (Bld) [#/Vol] 8.66 10*3/uL Normal 3.73-10.10 [facility] Comment on above: Performed By: #### L AB980 #### [facility] (DEFAULT) [address] [place] [address] Basophils (Bld) [#/Vol] 0.07 10*3/uL 0.00 - 0.09 K/uL [facility] Basophils/100 WBC (Bld) 0.8 % [facility] Differential cell count method Nom (Bld) Electronic Differential [facility] Eosinophils (Bld) [#/Vol] 0.32 10*3/uL 0.00 - 0.48 K/uL [facility] Eosinophils/100 WBC (Bld) 3.7 % [facility] Erythrocyte distribution width (RBC) [Ratio] 13.0 % 10.9 - 14.3 % [facility] Hematocrit (Bld) [Volume fraction] 41.5 % 39.6 - 48.8 % [facility] Hemoglobin (Bld) [Mass/Vol] 13.8 g/dL 13.4 - 16.8 g/dL [facility] Immature granulocytes (Bld) [#/Vol] 0.05 10*3/uL NINF - 0.07 K/uL [facility] Immature granulocytes/100 WBC (Bld) 0.6 % [facility] Lymphocytes (Bld) [#/Vol] 2.14 10*3/uL 0.83 - 3.57 K/uL [facility] Lymphocytes/100 WBC (Bld) 24.7 % [facility] MCH (RBC) [Entitic mass] 29.7 pg 26.1 - 33.3 pg [facility] MCHC (RBC) [Mass/Vol] 33.3 g/dL 31.9 - 36.5 g/dL [facility] MCV (RBC) [Entitic vol] 89.2 fL 79.0 - 94.5 fL [facility] Monocytes (Bld) [#/Vol] 0.64 10*3/uL 0.24 - 0.93 K/uL [facility] Monocytes/100 WBC (Bld) 7.4 % [facility] Neutrophils (Bld) [#/Vol] 5.44 10*3/uL 1.57 - 6.19 K/uL [facility] Nucleated RBC/100 WBC (Bld) [Ratio] 0.0 % [facility] Platelet mean volume (Bld) [Entitic vol] 9.3 fL 8.7 - 12.3 fL [facility] Platelets (Bld) [#/Vol] 220 10*3/uL 146 - 337 K/uL [facility] RBC (Bld) [#/Vol] 4.65 10*6/uL [facility] Segmented neutrophils/100 WBC (Bld) 62.8 % [facility] WBC (Bld) [#/Vol] 8.66 10*3/uL 3.73 - 10. 10 K/uL [facility] CHEM 7 (LYTES,BUN,CREA,GLUC) on 01-06-2024 Anion gap [Moles/Vol] 14 mmol/L Normal 7-17 [facility] Comment on above: Performed By: #### C HM7 #### [facility] (DEFAULT) [address] [place] [address] Chloride [Moles/Vol] 105 mmol/L Normal 98-108 [facility] Comment on above: Performed By: #### C HM7 #### [facility] (DEFAULT) [address] [place] [address] CO2 [Moles/Vol] 24 mmol/L Normal 21-31 [facility] Comment on above: Performed By: #### C HM7 #### [facility] (DEFAULT) [address] [place] [address] Creatinine [Mass/Vol] 1.23 mg/dL Normal 0.70-1.30 [facility] Comment on above: Performed By: #### C HM7 #### U [facility] (DEFAULT) [address] [place] [address] GFR/1.73 sq M.predicted among non-blacks MDRD (S/P/Bld) [Vol rate/Area] 64 mL/min/{1.73_m2} Normal >=60 [facility] Comment on above: Result Comment: Repo rted eGFR is based on the CKD-EPI 2020 equation using creatinine, age, and sex. Performed By: #### C HM7 #### [facility] (DEFAULT) [address] [place] [address] Glucose [Mass/Vol] 128 mg/dL High 70-99 [facility] Comment on above: Performed By: #### C HM7 #### [facility] (DEFAULT) [address] [place] [address] Osmolality [Osmolality] 296 mosm/kg Normal 278-305 [facility] Comment on above: Performed By: #### C HM7 #### [facility] (DEFAULT) [address] [place] [address] Potassium [Moles/Vol] 4.2 mmol/L Normal 3.5-5.0 [facility] Comment on above: Performed By: #### C HM7 #### [facility] (DEFAULT) [address] [place] [address] Sodium [Moles/Vol] 139 mmol/L Normal 135-145 [facility] Comment on above: Performed By: #### C HM7 #### U [facility] (DEFAULT) [address] [place] [address] Urea nitrogen [Mass/Vol] 20 mg/dL Normal 7-25 [facility] Comment on above: Performed By: #### C HM7 #### [facility] (DEFAULT) [address] [place] [address] Urea nitrogen/Creatinine [Mass ratio] 16 mg/mg Normal [facility] Comment on above: Performed By: #### C HM7 #### [facility] (DEFAULT) [address] [place] [address] Anion gap [Moles/Vol] 14 mmol/L 7 - 17 mmol/L [facility] Chloride [Moles/Vol] 105 mmol/L 98 - 10 8 mmol/L [facility] CO2 [Moles/Vol] 24 mmol/L 21 - 31 mmol/L [facility] Creatinine [Mass/Vol] 1.23 mg/dL 0.70 - 1.30 mg/dL [facility] eGFR, CKD-EPI, Male 64 - PINF [facility] Comment on above: Reported eGFR is bas ed on the CKD-EPI 2020 equation using creatinine, age, and sex. Glucose [Mass/Vol] 128 mg/dL High 70 - 99 mg/dL [facility] Interpretation and review of laboratory results Abnormal [facility] Osmolality Calc [Osmolality] 296 [facility] Potassium [Moles/Vol] 4.2 mmol/L 3.5 - 5.0 mmol/L [facility] Sodium [Moles/Vol] 139 mmol/L 135 - 145 mmol/L [facility] Urea nitrogen [Mass/Vol] 20 mg/dL 7 - 25 mg/dL [facility] Urea nitrogen/Creatinine [Mass ratio] 16 mg/mg [facility] PT,INR,PTTon 01-06-2024 aPTT Coag (Bld) [Time] 26.8 s Normal 24.0-34.3 [facility] Comment on above: Performed By: #### P TPTT #### [facility] (DEFAULT) [address] [place] [address] INR Coag (PPP) [Relative time] 1.0 {INR} Normal 0.9-1.1 [facility] Comment on above: Performed By: #### P TPTT #### [facility] (DEFAULT) [address] [place] [address] PT Coag (PPP) [Time] 12.6 s Normal 11.9-14.2 [facility] Comment on above: Performed By: #### P TPTT #### [facility] (DEFAULT) [address] [place] [address] aPTT Coag (PPP) [Time] 26.8 s [facility] INR Coag (Bld) [Relative time] 1.0 {INR} 0.9 - 1.1 [facility] Interpretation and review of laboratory results Normal [facility] PT Coag (PPP) [Time] 12.6 s [facility] XR CHEST PA AND LATERAL 2 [...] Please page the on-call EP fellow at [phone] with any emergent finding such as pneumothorax.; [...] evaluation. No acute pulmonary finding. Cardiomegaly. Normal [facility] XR Chest PA and Lateralon EXAM: XR [...] Limited evaluation. No acute pulmonary finding. Cardiomegaly. [facility] Radiology Study observation (narrative) [facility] XR Chest PA and LateralOrder ed By: Renetta Burgos on 01-06-2024 [facility] Work Phone: Basophil percentageOrdered B y: Speedy Boswell on 11-28-2023 Chloride [Moles/Vol] 109 mmol/L 98-107 [facility] Cholesterol [Mass/Vol] 96 mg/dL <200 [facility] Comment on above: <200 mg/dL Desirable 200-240 mg/dL Borderline >240 mg/dL High Risk Glucose [Mass/Vol] 125 mg/dL 74-106 [facility] Comment on above: Fasting Glucose resu lt from 100 to 125 mg/dL suggests IMPAIRED HOMEOSTASIS per A.D.A. criteria. Potassium [Moles/Vol] 4.1 mmol/L 3.5-5.1 [facility] Sodium [Moles/Vol] 141 mmol/L 136-145 [facility] Triglyceride [Mass/Vol] 91 mg/dL <199 [facility] Comment on above: The drugs N-Acetylcy steine and Metamizole may falsely depress this assay.Serum Triglycerides Reference Interval Normal <150 mg/dL Borderline high 150 - 199 mg/dL High 200 - 499 mg/dL Very High > or = 500 mg/dL Laboratory - Chemistry and C hemistry - challengeOrdered By: Speedy Boswell on 11-28-2023 CO2 [Moles/Vol] 26.0 mmol/L 21.0-32.0 [facility] Urea nitrogen/Creatinine [Mass ratio] 11.7 mg/mg 10-20 [facility] No Panel InformationOrdered By: Speedy Boswell on 11-28-2023 Estimated GFR (MDRD) Amer 72 mL/min >60 [facility] Comment on above: GFR Calc Estimated GFR (MDRD) Non-Af Amer 59 mL/min >60 [facility] Comment on above: Non- GFR Calc Serum or plasma calcium raul urement (mass/volume)Ordered By: Speedy Boswell on 11-28-2023 Calcium [Mass/Vol] 8.9 mg/dL 8.5-10.1 [facility] Serum or plasma cholesterol in HDL measurement (mass/volume)Ordered By: Speedy Boswell on 11-28-2023 Cholesterol in HDL [Mass/Vol] 32 mg/dL >40 [facility] Comment on above: The drugs N-Acetylcy steine and Metamizole may falsely depress this assay. Reference Range HDL <40 mg/dL Low HDL Cholesterol HDL >or= 60 mg/dL High HDL Cholesterol Serum or plasma cholesterol in VLDL measurement (mass/volume)Ordered By: Speedy Boswell on 11-28-2023 Cholesterol in VLDL [Mass/Vol] 18 mg/dL 5-40 [facility] Serum or plasma creatinine m easurement (mass/volume)Ordered By: Speedy Boswell on 11-28-2023 Creatinine [Mass/Vol] 1.28 mg/dL 0.70-1.30 [facility] Comment on above: The validity of the calculated GFR & GFRAA in patients over 70 years has not been determined. Clinical correlation is essential. Serum or plasma low density lipoprotein (LDL) cholesterol measurement (mass/volume)Ordered By: Speedy Boswell on 11-28-2023 Cholesterol in LDL [Mass/Vol] 46 mg/dL 0-130 [facility] Serum or plasma urea nitroge n measurement (mass/volume)Ordered By: Speedy Boswell on 11-28-2023 Urea nitrogen [Mass/Vol] 15 mg/dL 7-18 [facility] Thin prep Papanicolaou smear with manual screeningOrdered By: Speedy Boswell on 11-28-2023 Thin prep Papanicolaou smear with manual screening 6 5-15 [facility] EP PROCEDURE - EPS/ABLATION/ DEVICEon 11-22-2023 EP PROCEDURE - EPS/ABLATION/DEVICE Left arm venogram demonstrated the L axillary, brachiocephalic, inominate all patent to the SVC. Recommendations: Atrial lead replacement as planned. Table formatting from the original result was not included. Albin Jm Issa EP Procedure - EPS/Ablation/Device Ordering Physician: DAVID RAMIREZ Order #: [id number] Study Date: 11/21/2023 Patient Information Name MRN Description Albin Issa [id number] 68 y.o. male Physicians Panel Physicians Referring [...] no ABN associated with this order. Normal [facility] CHEM 7 (LYTES,BUN,CREA,GLUC) on 11-21-2023 Anion gap [Moles/Vol] 16 mmol/L Normal 7-17 [facility] Comment on above: Performed By: #### C HM7 #### [facility] (DEFAULT) [address] [place] [address] Chloride [Moles/Vol] 106 mmol/L Normal 98-108 [facility] Comment on above: Performed By: #### C HM7 #### [facility] (DEFAULT) [address] [place] [address] CO2 [Moles/Vol] 20 mmol/L Low 21-31 [facility] Comment on above: Performed By: #### C HM7 #### [facility] (DEFAULT) [address] [place] [address] Creatinine [Mass/Vol] 1.39 mg/dL High 0.70-1.30 [facility] Comment on above: Performed By: #### C HM7 #### U [facility] (DEFAULT) [address] [place] [address] GFR/1.73 sq M.predicted among non-blacks MDRD (S/P/Bld) [Vol rate/Area] 55 mL/min/{1.73_m2} Low >=60 [facility] Comment on above: Result Comment: Repo rted eGFR is based on the CKD-EPI 2020 equation using creatinine, age, and sex. Performed By: #### C HM7 #### [facility] (DEFAULT) [address] [place] [address] Glucose [Mass/Vol] 103 mg/dL High 70-99 [facility] Comment on above: Performed By: #### C HM7 #### [facility] (DEFAULT) [address] [place] [address] Osmolality [Osmolality] 292 mosm/kg Normal 278-305 [facility] Comment on above: Performed By: #### C HM7 #### [facility] (DEFAULT) [address] [place] [address] Potassium [Moles/Vol] 3.9 mmol/L Normal 3.5-5.0 [facility] Comment on above: Performed By: #### C HM7 #### [facility] (DEFAULT) [address] [place] [address] Sodium [Moles/Vol] 138 mmol/L Normal 135-145 [facility] Comment on above: Performed By: #### C HM7 #### [facility] (DEFAULT) [address] [address] Urea nitrogen [Mass/Vol] 22 mg/dL Normal 7-25 [facility] Comment on above: Performed By: #### C HM7 #### [facility] (DEFAULT) [address] [place] [address] Urea nitrogen/Creatinine [Mass ratio] 16 mg/mg Normal [facility] Comment on above: Performed By: #### C HM7 #### [facility] [address] [place] [address] DEVICE EVALUATION (SCANNED)o n 11-21-2023 [facility] Radiology Study observation (narrative) [facility] Office Visiton 08-26-2023 Follow-up visit [id number] Albin Issa 1955 M Date Provider Department Center 08/26/2023 [facility] None Family History Problem Relation Age of Onset Heart attack Mother Cancer Father Comments: liver Family Status - Relation Status Age at Mother Father Daughter Alive Level of Service:65636 IN OFFICE/OUTPT VISIT,PROCEDURE ONLY Reason for Visit and Comments: Follow-up [433574] - USG left subtalar joint injection Normal [facility] PATINSon 08-26-2023 [facility] Patient Care [...] the office as soon as possible at [phone] [facility] Progress Noteon 08-26-2023 Progress Note [facility] [address] [place] [address] Dept: [phone] Dept Chief Complaint Patient presents with Follow-up [...] prior to signing but 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 Normal [facility] 36on 08-12-2023 36 Patient was called with a VM left to call our office back to schedule injection. Scheduling Information: Saturday or in [place] Saturday afternoon only 1st available- 30 min appt [facility] 36 Name of Caller: Mauro Contact Reason for Appointment: Pt would like to get another USG left subtalar joint If he does not answer please leave a voicemail. Please advise. Office Name: [facility] Absolute lymphocyte countOrd ered By: ED PROVIDER on 10-27-2022 Lymphocytes Auto (Unsp spec) [#/Vol] 0.99 10*3/uL 0.83-4.51 [facility] Basophil percentageOrdered B y: ED PROVIDER on 10-27-2022 Basophils/100 WBC (Bld) 0.5 % 0-1 [facility] Chloride [Moles/Vol] 106 mmol/L 98-107 [facility] Eosinophils/100 WBC (Bld) 3.5 % 0-5 [facility] Glucose [Mass/Vol] 103 mg/dL 74-106 [facility] Comment on above: Fasting Glucose resu lt from 100 to 125 mg/dL suggests IMPAIRED HOMEOSTASIS per A.D.A. criteria. Neutrophils (Bld) [#/Vol] 3.7 10*3/uL 2.0-7.7 [facility] Neutrophils/100 WBC (Bld) 65.1 % 47-70 [facility] Potassium [Moles/Vol] 4.0 mmol/L 3.5-5.1 [facility] Comment on above: Slight Hemolysis, Re sult may be falsely increased. Sodium [Moles/Vol] 138 mmol/L 136-145 [facility] WBC (Bld) [#/Vol] 5.7 10*3/uL 4.4-11.0 [facility] Blood erythrocytes count (nu mber/volume)Ordered By: ED PROVIDER on 10-27-2022 RBC (Bld) [#/Vol] 4.65 10*6/uL 4.6-6.2 [facility] Blood hemoglobin measurement (mass/volume)Ordered By: ED PROVIDER on 10-27-2022 Hemoglobin (Bld) [Mass/Vol] 14.7 g/dL 13.0-16.5 [facility] Blood lymphocytes/100 leukoc ytesOrdered By: ED PROVIDER on 10-27-2022 Lymphocytes/100 WBC (Bld) 17.4 % 19-41 [facility] Blood monocytes/100 leukocyt esOrdered By: ED PROVIDER on 10-27-2022 Monocytes/100 WBC (Bld) 13.0 % 0-10 [facility] Blood platelet mean volumeOr dered By: ED PROVIDER on 10-27-2022 Platelet mean volume (Bld) [Entitic vol] 9.8 fL 6.2-12.0 [facility] COVID-19 virus antigen assay Ordered By: ED PROVIDER on 10-27-2022 SARS-CoV-2 (COVID-19) Ag IA.rapid Ql (Resp) [facility] Determination of erythrocyte mean corpuscular volume (MCV)Ordered By: ED PROVIDER on 10-27-2022 MCV (RBC) [Entitic vol] 91.6 fL 80-94 [facility] Hematocrit Auto (Bld) [Volum e fraction]Ordered By: ED PROVIDER on 10-27-2022 Hematocrit (Bld) [Volume fraction] 42.6 % 40-54 [facility] Laboratory - Chemistry and C hemistry - challengeOrdered By: ED PROVIDER on 10-27-2022 CO2 [Moles/Vol] 27.0 mmol/L 21.0-32.0 [facility] Urea nitrogen/Creatinine [Mass ratio] 11.9 mg/mg 10-20 [facility] Laboratory - Hematology and Cell countsOrdered By: ED PROVIDER on 10-27-2022 Erythrocyte distribution width (RBC) [Entitic vol] 45.2 fL 35.1-43.9 [facility] Erythrocyte distribution width (RBC) [Ratio] 13.4 % 11.6-14.6 [facility] Immature granulocytes/100 WBC (Bld) 0.500 % 0.0-0.9 [facility] Comment on above: IG% - Immature Granu locytes (promyelocytes, myelocytes and metamyelocytes) > 1% indicates that a LEFT SHIFT is Present. MCH (RBC) [Entitic mass] 31.6 pg 27.0-32.0 [facility] Nucleated RBC/100 WBC (Bld) [Ratio] 0 % 0-5 [facility] ([facility]) [Mass/Vol]Or dered By: ED PROVIDER on 10-27-2022 MCHC (RBC) [Mass/Vol] 34.5 g/dL 32-36 [facility] No Panel InformationOrdered By: ED PROVIDER on 10-27-2022 Estimated Creatinine Clearance Calc 51.75 ml/min [facility] Estimated GFR (MDRD) Amer 68 mL/min >60 [facility] Comment on above: GFR Calc Estimated GFR (MDRD) Non-Af Amer 56 mL/min >60 [facility] Comment on above: Non- GFR Calc Platelets bldOrdered By: ED PROVIDER on 10-27-2022 Platelets (Bld) [#/Vol] 159 10*3/uL 150-450 [facility] Serum or plasma calcium raul urement (mass/volume)Ordered By: ED PROVIDER on 10-27-2022 Calcium [Mass/Vol] 9.8 mg/dL 8.5-10.1 [facility] Serum or plasma creatinine m easurement (mass/volume)Ordered By: ED PROVIDER on 10-27-2022 Creatinine [Mass/Vol] 1.34 mg/dL 0.70-1.30 [facility] Comment on above: The validity of the calculated GFR & GFRAA in patients over 70 years has not been determined. Clinical correlation is essential. Serum or plasma urea nitroge n measurement (mass/volume)Ordered By: ED PROVIDER on 10-27-2022 Urea nitrogen [Mass/Vol] 16 mg/dL 7-18 [facility] Thin prep Papanicolaou smear with manual screeningOrdered By: ED PROVIDER on 10-27-2022 Thin prep Papanicolaou smear with manual screening 5 5-15 [facility] No Panel Informationon 06-20 Prostate Specific Antigen Screen 0.41 ng/mL 0.00-4.00 [facility] Work Phone: Comment on above: This test was perfor med using the TPSA assay method for the[employer] chemistry system. Values obtained with differentassay methods cannot be used interchangably.When changing PSA assays in the course of monitoring apatient, additional sequential testing should be carriedout to confirm baseline values. Basophil percentageon 2021 Bilirubin [Mass/Vol] 0.40 mg/dL 0.20-1.00 [facility] Work Phone: Comment on above: For patients on eltr ombopag therapy, use of Dimension [place] TBIL is not recommended. Cholesterol [Mass/Vol] 115 mg/dL <200 [facility] Work Phone: Comment on above: <200 mg/dL Desirable 200-240 mg/dL Borderline >240 mg/dL High Risk Protein [Mass/Vol] 7.7 g/dL 6.4-8.2 [facility] Work Phone: [phone] Triglyceride [Mass/Vol] 117 mg/dL <199 [facility] Work Phone: Comment on above: The drugs N-Acetylcy steine and Metamizole may falsely depress this assay.Serum Triglycerides Reference Interval Normal <150 mg/dL Borderline high 150 - 199 mg/dL High 200 - 499 mg/dL Very High > or = 500 mg/dL Direct bilirubinon Bilirubin.direct [Mass/Vol] 0.13 mg/dL 0.00-0.30 [facility] Work Phone: [phone] Laboratory - Chemistry and C hemistry - challengeon 05-10-2022 ALP [Catalytic activity/Vol] 138 U/L 45-117 [facility] Work Phone: [phone] ALT [Catalytic activity/Vol] 37 U/L 16-61 [facility] Work Phone: [phone] Globulin (S) [Mass/Vol] 3.8 g/dL 2.2-4.2 [facility] Work Phone: [phone] Serum or plasma albumin raul urement (mass/volume)on 05-10-2022 Albumin [Mass/Vol] 3.9 g/dL 3.2-5.0 [facility] Work Phone: [phone] Serum or plasma cholesterol in HDL measurement (mass/volume)on 05-10-2022 Cholesterol in HDL [Mass/Vol] 30 mg/dL >40 [facility] Work Phone: Comment on above: The drugs N-Acetylcy steine and Metamizole may falsely depress this assay. Reference Range HDL <40 mg/dL Low HDL Cholesterol HDL >or= 60 mg/dL High HDL Cholesterol Serum or plasma cholesterol in VLDL measurement (mass/volume)on 05-10-2022 Cholesterol in VLDL [Mass/Vol] 23 mg/dL 5-40 [facility] Work Phone: Serum or plasma low density lipoprotein (LDL) cholesterol measurement (mass/volume)on 05-10-2022 Cholesterol in LDL [Mass/Vol] 62 mg/dL 0-130 [facility] Work Phone: Thin prep Papanicolaou smear with manual screeningon 05-10-2022 Thin prep Papanicolaou smear with manual screening 20 U/L 15-37 [facility] Work Phone: [id number] 03-07-2022 Vitamin B6 Lvl 14.0 nmol/L Low 20.0-125.0 [facility] ([place]) Comment on above: Result Comment: INTE RPRETIVE INFORMATION: Vitamin B6 (Pyridoxal 5-Phosphate) Pyridoxal 5'-phosphate measured in a specimen collected following an 8-hour or overnight fast accurately indicates vitamin B6 nutritional status. Non-fasting specimen concentration reflects recent vitamin intake. This test was developed and its performance characteristics determined by [employer] [facility]. It has not been cleared or approved by the [place] Food and Drug Administration. This test was performed in a CLIA certified laboratory and is intended for clinical purposes. Performed By: [facility] [address] [place] [id number] General Partner: Leyda Carr MD Performed By: #### A 1C, TSH, FT4, ENA1, COPPER, MMA, VITB6 #### [facility] [address] [place] [address] #### FOL, B12, IFES, SPE #### [address] [address] IFESon 03-05-2022 IFES Interpretation Immunofixation electrophoresis of serum shows the presence of only polyclonal immunoglobulins (IgG,A,M,[place] and Lambda), No monoclonal protein detected. Normal [facility] ([place]) Comment on above: Result Comment: Elec tronically Signed by: PANKAJ QUIROZ 03/05/2022 08:24 EDT Performed By: #### A 1C, TSH, FT4, ENA1, COPPER, MMA, VITB6 #### [address] [address] #### FOL, B12, IFES, SPE #### [address] 03-05-2022 SPE Interpretation Normal serum protein electrophoresis pattern. No abnormality detected. Normal [facility] ([place]) Comment on above: Result Comment: Elec tronically Signed by: PANKAJ QUIROZ 03/05/2022 08:24 EDT Performed By: #### A 1C, TSH, FT4, ENA1, COPPER, MMA, VITB6 #### [address] [address] #### FOL, B12, IFES, SPE #### [place] [id number] [facility] 03-01-2022 Methylmalonic Acid 172 nmol/L Normal 79-376 [facility] ([place]) Comment on above: Result Comment: This test was developed and its performance characteristics determined by [facility] [place] ([facility]). It has not been cleared or approved by the FDA. [facility] is regulated under CLIA as qualified to perform high-complexity testing. This test is used for clinical purposes. It should not be regarded as investigational or for research. Performed By: [facility] [address] [place] [address] Dump Truck Operator: Hung Arevalo III, M.D. CLIA#: [id number] Performed By: #### A 1C, TSH, FT4, ENA1, COPPER, MMA, VITB6 #### [address] [address] #### FOL, B12, IFES, SPE #### [address] 03-01-2022 Albumin 3.7 G/dL Normal 3.3-5.0 [facility] ([place]) Comment on above: Performed By: #### A 1C, TSH, FT4, ENA1, COPPER, MMA, VITB6 #### [address] [address] #### FOL, B12, IFES, SPE #### [place] [address] Alpha 1 0.2 G/dL Normal 0.1-0.4 [facility] ([place]) Comment on above: Performed By: #### A 1C, TSH, FT4, ENA1, COPPER, MMA, VITB6 #### [place] [address] #### FOL, B12, IFES, SPE #### [place] [address] Alpha 2 0.9 G/dL Normal 0.6-1.2 [facility] ([place]) Comment on above: Performed By: #### A 1C, TSH, FT4, ENA1, COPPER, MMA, VITB6 #### [place] [address] #### FOL, B12, IFES, SPE #### [place] [address] Beta 1.0 G/dL Normal 0.6-1.3 [facility] ([place]) Comment on above: Performed By: #### A 1C, TSH, FT4, ENA1, COPPER, MMA, VITB6 #### [place] [address] #### FOL, B12, IFES, SPE #### [place] [address] Gamma 1.1 G/dL Normal 0.7-1.6 [facility] ([place]) Comment on above: Performed By: #### A 1C, TSH, FT4, ENA1, COPPER, MMA, VITB6 #### [place] [address] #### FOL, B12, IFES, SPE #### [place] [address] [facility] 02-28-2022 Copper (s) 107 UG/DL Normal 70-140 [facility] ([place]) Comment on above: Result Comment: This test was developed and its performance characteristics determined by [facility] [place] ([facility]). It has not been cleared or approved by the FDA. [facility] is regulated under CLIA as qualified to perform high-complexity testing. This test is used for clinical purposes. It should not be regarded as investigational or for research. Performed By: [place] [address] Dump Truck Operator: Hung Arevalo III, M.D. CLIA#: [id number] Performed By: #### A 1C, TSH, FT4, ENA1, COPPER, MMA, VITB6 #### [place] [address] #### FOL, B12, IFES, SPE #### [place] [address] ENA1on 02-28-2022 Centromere <0.2 Normal <1.0 [facility] ([place]) Comment on above: Result Comment: Anti -centromere antibody is used as in aid in diagnosis of systemic sclerosis. Clinical correlation is required. Test Methodology: Multiplex flow immunoassay. Performed By: [place] [address] Dump Truck Operator: Hung Arevalo III, M.D. CLIA#: [id number] Performed By: #### A 1C, TSH, FT4, ENA1, COPPER, MMA, VITB6 #### [place] [address] #### FOL, B12, IFES, SPE #### [place] [address] Centromere Ab Qualitative Negative Normal Negative [facility] ([place]) Comment on above: Result Comment: Perf ormed By: [place] [address] Dump Truck Operator: Hung Arevalo III, M.D. CLIA#: [id number] Performed By: #### A 1C, TSH, FT4, ENA1, COPPER, MMA, VITB6 #### [place] [address] #### FOL, B12, IFES, SPE #### [address] [address] Chromatin Ab Qualitative Negative Normal Negative [facility] ([place]) Comment on above: Result Comment: Perf ormed By: [place] [address] Dump Truck Operator: Hung Arevalo III, M.D. CLIA#: [id number] Performed By: #### A 1C, TSH, FT4, ENA1, COPPER, MMA, VITB6 #### [place] [address] #### FOL, B12, IFES, SPE #### [address] [address] Chromatin Antibody <0.2 Normal <1.0 [facility] ([place]) Comment on above: Result Comment: Test Methodology: Multiplex flow immunoassay. Anti-chromatin antibody is used as an aid in diagnosis of systemic lupus erythematosus. Clinical correlation is required. Test Methodology: Multiplex flow immunoassay. Performed By: [place] [address] Dump Truck Operator: Hung Arevalo III, M.D. CLIA#: [id number] Performed By: #### A 1C, TSH, FT4, ENA1, COPPER, MMA, VITB6 #### [place] [address] #### FOL, B12, IFES, SPE #### [address] [address] HAILE 1 Antibody <0.2 Normal <1.0 [facility] ([place]) Comment on above: Result Comment: Perf ormed By: [place] [address] Dump Truck Operator: Hung Arevalo III, M.D. CLIA#: [id number] Performed By: #### A 1C, TSH, FT4, ENA1, COPPER, MMA, VITB6 #### [place] [id number] #### FOL, B12, IFES, SPE #### [address] [address] HAILE 1 Antibody Qual Negative Normal Negative [facility] ([place]) Comment on above: Result Comment: Anti -HAILE-1 antibody is used as an aid in diagnosis of polymyositis and dermatomyositis especially with pulmonary involvement. A negative result cannot rule out polymyositis or dermatomyositis. Clinical correlation is required. Test Methodology: Multiplex flow immunoassay. Performed By: [facility] [address] [place] [address] Dump Truck Operator: Hung Arevalo III, M.D. CLIA#: [id number] Performed By: #### A 1C, TSH, FT4, ENA1, COPPER, MMA, VITB6 #### [place] [address] #### FOL, B12, IFES, SPE #### [address] [address] Ribosomal [employer] <0.2 Normal <1.0 [facility] ([place]) Comment on above: Result Comment: Perf ormed By: [facility] [address] [place] [address] Dump Truck Operator: Hung Arevalo III, M.D. CLIA#: [id number] Performed By: #### A 1C, TSH, FT4, ENA1, COPPER, MMA, VITB6 #### [place] [address] #### FOL, B12, IFES, SPE #### [address] [address] Ribosomal [employer] Qualitative Negative Normal Negative [facility] ([place]) Comment on above: Result Comment: Anti -Ribosomal RNA (Ribosomal P) antibody is used as an aid in diagnosis of systemic autoimmune diseases especially systemic lupus erythematosus and mixed connective tissue disease. Cross-reactivity with Anti-gonzales antibody is not uncommon. Clinical correlation is required. Test Methodology: Multiplex flow immunoassay. Performed By: [facility] [address] [place] [address] Dump Truck Operator: Hung Arevalo III, M.D. CLIA#: [id number] Performed By: #### A 1C, TSH, FT4, ENA1, COPPER, MMA, VITB6 #### [address] [address] #### FOL, B12, IFES, SPE #### [address] [address] [employer] Antibody 0.3 AI Normal <1.0 [facility] ([place]) Comment on above: Result Comment: Anti -INSULATION [employer]LOORING ASSEMBLER antibody is used as an aid in diagnosis of systemic autoimmune diseases especially systemic lupus erythematosus and mixed connective tissue disease. Cross-reactivity with Anti-gonzales antibody is not uncommon. Clinical correlation is required. Test Methodology: Multiplex flow immunoassay. Performed By: [place] [address] Dump Truck Operator: Hung Arevalo III, M.D. CLIA#: [id number] Performed By: #### A 1C, TSH, FT4, ENA1, COPPER, MMA, VITB6 #### [place] [address] #### FOL, B12, IFES, SPE #### [address] [address] [employer] Antibody Qualitative Negative Normal Negative [facility] ([place]) Comment on above: Result Comment: Perf ormed By: [place] [address] Dump Truck Operator: Hung Arevalo III, M.D. CLIA#: [id number] Performed By: #### A 1C, TSH, FT4, ENA1, COPPER, MMA, VITB6 #### [place] [address] #### FOL, B12, IFES, SPE #### [address] [address] Scleroderma Ab, IgG Qualitative Negative Normal Negative [facility] ([place]) Comment on above: Result Comment: Perf ormed By: [place] [address] Dump Truck Operator: Hung Arevalo III, M.D. CLIA#: [id number] Performed By: #### A 1C, TSH, FT4, ENA1, COPPER, MMA, VITB6 #### [address] [address] #### FOL, B12, IFES, SPE #### [address] [address] Scleroderma IgG Ab <0.2 Normal <1.0 [facility] ([place]) Comment on above: Result Comment: Scl- 70/Scleroderma antibody test is used as an aid in diagnosis of systemic sclerosis especially the diffuse cutaneous form. A negative result cannot rule out systemic sclerosis. The final interpretation should consider clinical picture and other test results such as anti-centromere antibody. Test Methodology: Multiplex flow immunoassay. Performed By: [place] [address] Dump Truck Operator: Hung Arevalo III, M.D. CLIA#: [id number] Performed By: #### A 1C, TSH, FT4, ENA1, COPPER, MMA, VITB6 #### [place] [address] #### FOL, B12, IFES, SPE #### [address] [address] Sm Antibody <0.2 Normal <1.0 [facility] ([place]) Comment on above: Result Comment: Perf ormed By: [place] [address] Dump Truck Operator: Hnug Arevalo III, M.D. CLIA#: [id number] Performed By: #### A 1C, TSH, FT4, ENA1, COPPER, MMA, VITB6 #### [place] [address] #### FOL, B12, IFES, SPE #### [address] [address] Sm Antibody Qual Negative Normal Negative [facility] ([place]) Comment on above: Result Comment: Anti -Sm (Gonzales) antibody is used as an aid in diagnosis of systemic lupus erythematosus and its presence is associated with renal disease. A negative result cannot rule out systemic lupus erythematosus. Clinical correlation is required. Test Methodology: Multiplex flow immunoassay. Performed By: [facility] [address] [place], [place] [id number] Dump Truck Operator: Hung Arevalo III, M.D. CLIA#: [id number] Performed By: #### A 1C, TSH, FT4, ENA1, COPPER, MMA, VITB6 #### [address] [address] #### FOL, B12, IFES, SPE #### [address] [address] SS-A Antibody <0.2 Normal <1.0 [facility] ([place]) Comment on above: Result Comment: Test Methodology: Multiplex flow immunoassay. Anti-SSA (anti-Ro) antibody is used as an aid in diagnosis of a variety of systemic autoimmune diseases, Sjogren's syndrome among others. Clinical correlation is required. Test Methodology: Multiplex flow immunoassay. Performed By: [facility] [address] [place] [address] Dump Truck Operator: Hung Arevalo III, M.D. CLIA#: [id number] Performed By: #### A 1C, TSH, FT4, ENA1, COPPER, MMA, VITB6 #### [place] [address] #### FOL, B12, IFES, SPE #### [address] [address] SS-B Antibody <0.2 Normal <1.0 [facility] ([place]) Comment on above: Result Comment: Anti -SSB (anti-La) antibody is used as an aid in diagnosis of a variety of systemic autoimmune diseases, especially for Sjogren's syndrome and systemic lupus erythematosus. Clinical correlation is required. Test Methodology: Multiplex flow immunoassay. Performed By: [facility] [address] [place] [address] Dump Truck Operator: Hung Arevalo III, M.D. CLIA#: [id number] Performed By: #### A 1C, TSH, FT4, ENA1, COPPER, MMA, VITB6 #### [address] [address] #### FOL, B12, IFES, SPE #### [address] [address] SSA Antibody Qualitative Negative Normal Negative [facility] ([place]) Comment on above: Result Comment: Perf ormed By: [place] [id number] Dump Truck Operator: Hung Arevalo III, M.D. CLIA#: [id number] Performed By: #### A 1C, TSH, FT4, ENA1, COPPER, MMA, VITB6 #### [address] [address] #### FOL, B12, IFES, SPE #### [place] [address] SSB Antibody Qualitative Negative Normal Negative [facility] ([place]) Comment on above: Result Comment: Perf ormed By: [place] [id number] Dump Truck Operator: Hung Arevalo III, M.D. CLIA#: [id number] Performed By: #### A 1C, TSH, FT4, ENA1, COPPER, MMA, VITB6 #### [place] [address] #### FOL, B12, IFES, SPE #### [place] [address] A1Con 02-27-2022 HbA1c (Bld) [Mass fraction] 5.8 % Normal 4.3-6.4 [facility] ([place]) Comment on above: Performed By: #### A 1C, TSH, FT4, ENA1, COPPER, MMA, VITB6 #### [address] [address] #### FOL, B12, IFES, SPE #### [place] [address] B12on 02-27-2022 Cobalamin (Vitamin B12) [Mass/Vol] 536 pg/mL Normal 211-911 [facility] ([place]) Comment on above: Performed By: #### A 1C, TSH, FT4, ENA1, COPPER, MMA, VITB6 #### [address] [address] #### FOL, B12, IFES, SPE #### [place] [id number] FOLon 02-27-2022 Folate 11.66 ng/mL Normal 5.38-24.00 [facility] ([place]) Comment on above: Performed By: #### A 1C, TSH, FT4, ENA1, COPPER, MMA, VITB6 #### [address] [address] #### FOL, B12, IFES, SPE #### [place] [address] FT4on 02-27-2022 Free T4 [Mass/Vol] 0.88 ng/dL Normal 0.76-1.46 [facility] ([place]) Comment on above: Performed By: #### A 1C, TSH, FT4, ENA1, COPPER, MMA, VITB6 #### [address] [address] #### FOL, B12, IFES, SPE #### [place] [address] SPEon 02-27-2022 Total Protein 6.9 G/dL Normal 5.7-8.2 [facility] ([place]) Comment on above: Result Comment: No te - New Reference Range in effect 20 Performed By: #### A 1C, TSH, FT4, ENA1, COPPER, MMA, VITB6 #### [address] [address] #### FOL, B12, IFES, SPE #### [place] [address] TSHon 02-27-2022 TSH Qn 2.20 m[IU]/L Normal 0.36-3.74 [facility] ([place]) Comment on above: Performed By: #### A 1C, TSH, FT4, ENA1, COPPER, MMA, VITB6 #### [address] [address] #### FOL, B12, IFES, SPE #### [place] [address] Absolute lymphocyte counton 02-07-2022 Lymphocytes Auto (Unsp spec) [#/Vol] 1.49 10*3/uL 0.83-4.51 [facility] Work Phone: Basophil percentageon 2021 Basophils/100 WBC (Bld) 0.7 % 0-1 [facility] Work Phone: Chloride [Moles/Vol] 108 mmol/L 98-107 [facility]: Eosinophils/100 WBC (Bld) 2.7 % 0-5 [facility] Work Phone: Glucose [Mass/Vol] 125 mg/dL 74-106 [facility] Work Phone: Comment on above: Fasting Glucose resu lt from 100 to 125 mg/dL suggests IMPAIRED HOMEOSTASIS per A.D.A. criteria. Neutrophils (Bld) [#/Vol] 3.5 10*3/uL 2.0-7.7 [facility] Work Phone: Neutrophils/100 WBC (Bld) 62.5 % 47-70 [facility] Work Phone: Potassium [Moles/Vol] 4.0 mmol/L 3.5-5.1 [facility] Work Phone: Comment on above: Slight Hemolysis, Re sult may be falsely increased. Sodium [Moles/Vol] 139 mmol/L 136-145 [facility] Work Phone: WBC (Bld) [#/Vol] 5.6 10*3/uL 4.4-11.0 [facility] Work Phone: Blood erythrocytes count (nu mber/volume)on 02-07-2022 RBC (Bld) [#/Vol] 5.16 10*6/uL 4.6-6.2 [facility] Work Phone: Blood hemoglobin measurement (mass/volume)on 02-07-2022 Hemoglobin (Bld) [Mass/Vol] 16.1 g/dL 13.0-16.5 [facility] Work Phone: Blood lymphocytes/100 leukoc yteson 02-07-2022 Lymphocytes/100 WBC (Bld) 26.7 % 19-41 [facility] Work Phone: Blood monocytes/100 leukocyt eson 02-07-2022 Monocytes/100 WBC (Bld) 7.2 % 0-10 [facility] Work Phone: Blood platelet mean volumeon 02-07-2022 Platelet mean volume (Bld) [Entitic vol] 9.7 fL 6.2-12.0 [facility] Work Phone: Determination of erythrocyte mean corpuscular volume (MCV)on 02-07-2022 MCV (RBC) [Entitic vol] 89.5 fL 80-94 [facility] Work Phone: Hematocrit Auto (Bld) [Volum e fraction]on 02-07-2022 Hematocrit (Bld) [Volume fraction] 46.2 % 40-54 [facility] Work Phone: Laboratory - Chemistry and C hemistry - challengeon 02-07-2022 CO2 [Moles/Vol] 24.0 mmol/L 21.0-32.0 [facility] Work Phone: Urea nitrogen/Creatinine [Mass ratio] 10.5 mg/mg 10-20 [facility] Work Phone: [phone] Laboratory - Hematology and Cell countson 02-07-2022 Erythrocyte distribution width (RBC) [Entitic vol] 41.1 fL 35.1-43.9 [facility] Work Phone: [phone] Erythrocyte distribution width (RBC) [Ratio] 12.5 % 11.6-14.6 [facility] Work Phone: Immature granulocytes/100 WBC (Bld) 0.200 % 0.0-0.9 [facility] Work Phone: Comment on above: IG% - Immature Granu locytes (promyelocytes, myelocytes and metamyelocytes) > 1% indicates that a LEFT SHIFT is Present. MCH (RBC) [Entitic mass] 31.2 pg 27.0-32.0 [facility] Work Phone: Nucleated RBC/100 WBC (Bld) [Ratio] 0 % 0-5 [facility] Work Phone: MCHC Auto (RBC) [Mass/Vol]on 02-07-2022 MCHC (RBC) [Mass/Vol] 34.8 g/dL 32-36 [facility] Work Phone: No Panel Informationon 02-07 Estimated GFR (MDRD) Amer 75 mL/min >60 [facility] Work Phone: Comment on above: GFR Calc Estimated GFR (MDRD) Non-Af Amer 62 mL/min >60 [facility] Work Phone: Comment on above: Non- GFR Calc Platelets bldon 02-07-2022 Platelets (Bld) [#/Vol] 225 10*3/uL 150-450 [facility] Work Phone: Serum or plasma calcium raul urement (mass/volume)on 02-07-2022 Calcium [Mass/Vol] 9.6 mg/dL 8.5-10.1 [facility] Work Phone: Serum or plasma creatinine m easurement (mass/volume)on 02-07-2022 Creatinine [Mass/Vol] 1.24 mg/dL 0.70-1.30 [facility] Work Phone: Comment on above: The validity of the calculated GFR & GFRAA in patients over 70 years has not been determined. Clinical correlation is essential. Serum or plasma urea nitroge n measurement (mass/volume)on 02-07-2022 Urea nitrogen [Mass/Vol] 13 mg/dL 7-18 [facility] Work Phone: Thin prep Papanicolaou smear with manual screeningon 02-07-2022 Thin prep Papanicolaou smear with manual screening 7 5-15 [facility] Work Phone: Basophil percentageon 2021 Chloride [Moles/Vol] 111 mmol/L 98-107 [facility] Work Phone: Cholesterol [Mass/Vol] 150 mg/dL <200 [facility] Work Phone: Comment on above: <200 mg/dL Desirable 200-240 mg/dL Borderline >240 mg/dL High Risk Glucose [Mass/Vol] 96 mg/dL 74-106 [facility] Work Phone: [phone] Potassium [Moles/Vol] 4.0 mmol/L 3.5-5.1 [facility] Work Phone: [phone] Sodium [Moles/Vol] 141 mmol/L 136-145 [facility] Work Phone: [phone] Triglyceride [Mass/Vol] 140 mg/dL [facility] Work Phone: Comment on above: The drugs N-Acetylcy steine and Metamizole may falsely depress this assay.Serum Triglycerides Reference Interval Normal <150 mg/dL Borderline high 150 - 199 mg/dL High 200 - 499 mg/dL Very High > or = 500 mg/dL Laboratory - Chemistry and C hemistry - challengeon 01-24-2022 CO2 [Moles/Vol] 24.0 mmol/L 21.0-32.0 [facility] Work Phone: Urea nitrogen/Creatinine [Mass ratio] 10.3 mg/mg 10-20 [facility] Work Phone: No Panel Informationon 01-24 Estimated GFR (MDRD) Amer 74 mL/min >60 [facility] Work Phone: [phone] Comment on above: GFR Calc Estimated GFR (MDRD) Non-Af Amer 61 mL/min >60 [facility] Work Phone: Comment on above: Non- GFR Calc Serum or plasma calcium raul urement (mass/volume)on 01-24-2022 Calcium [Mass/Vol] 10.0 mg/dL 8.5-10.1 [facility] Work Phone: [phone] Serum or plasma cholesterol in HDL measurement (mass/volume)on 01-24-2022 Cholesterol in HDL [Mass/Vol] 30 mg/dL [facility] Work Phone: Comment on above: The drugs N-Acetylcy steine and Metamizole may falsely depress this assay. Reference Range HDL <40 mg/dL Low HDL Cholesterol HDL >or= 60 mg/dL High HDL Cholesterol Serum or plasma cholesterol in VLDL measurement (mass/volume)on 01-24-2022 Cholesterol in VLDL [Mass/Vol] 28 mg/dL 5-40 [facility] Work Phone: [phone] Serum or plasma creatinine m easurement (mass/volume)on 01-24-2022 Creatinine [Mass/Vol] 1.26 mg/dL 0.70-1.30 [facility] Work Phone: Comment on above: The validity of the calculated GFR & GFRAA in patients over 70 years has not been determined. Clinical correlation is essential. Serum or plasma low density lipoprotein (LDL) cholesterol measurement (mass/volume)on 01-24-2022 Cholesterol in LDL [Mass/Vol] 92 mg/dL 0-130 [facility] Work Phone: [phone] Serum or plasma urea nitroge n measurement (mass/volume)on 01-24-2022 Urea nitrogen [Mass/Vol] 13 mg/dL 7-18 [facility] Work Phone: Thin prep Papanicolaou smear with manual screeningon 01-24-2022 Thin prep Papanicolaou smear with manual screening 6 5-15 [facility] Work Phone: [phone] Absolute lymphocyte counton 01-15-2022 Lymphocytes Auto (Unsp spec) [#/Vol] 1.95 10*3/uL 0.83-4.51 [facility] Work Phone: Basophil percentageon 2021 Basophils/100 WBC (Bld) 0.6 % 0-1 [facility] Work Phone: Chloride [Moles/Vol] 110 mmol/L 98-107 [facility] Work Phone: [phone] Eosinophils/100 WBC (Bld) 3.4 % 0-5 [facility] Work Phone: [phone] Glucose [Mass/Vol] 106 mg/dL 74-106 [facility] Work Phone: Comment on above: Fasting Glucose resu lt from 100 to 125 mg/dL suggests IMPAIRED HOMEOSTASIS per A.D.A. criteria. Neutrophils (Bld) [#/Vol] 5.1 10*3/uL 2.0-7.7 [facility] Work Phone: Neutrophils/100 WBC (Bld) 62.1 % 47-70 [facility] Work Phone: Potassium [Moles/Vol] 3.7 mmol/L 3.5-5.1 [facility] Work Phone: Sodium [Moles/Vol] 139 mmol/L 136-145 [facility] Work Phone: WBC (Bld) [#/Vol] 8.1 10*3/uL 4.4-11.0 [facility] Work Phone: Basophil percentage 5-10 SEEN /hpf [facility] Work Phone: Bilirubin Test strip Ql (U)o n 01-15-2022 Bilirubin Ql (U) Negative Negative [facility] Work Phone: [phone] Blood erythrocytes count (nu mber/volume)on 01-15-2022 RBC (Bld) [#/Vol] 4.96 10*6/uL 4.6-6.2 [facility] Work Phone: Blood hemoglobin measurement (mass/volume)on 01-15-2022 Hemoglobin (Bld) [Mass/Vol] 14.8 g/dL 13.0-16.5 [facility] Work Phone: Blood lymphocytes/100 leukoc yteson 01-15-2022 Lymphocytes/100 WBC (Bld) 24.0 % 19-41 [facility] Work Phone: Blood monocytes/100 leukocyt eson 01-15-2022 Monocytes/100 WBC (Bld) 9.0 % 0-10 [facility] Work Phone: Blood platelet mean volumeon 01-15-2022 Platelet mean volume (Bld) [Entitic vol] 9.9 fL 6.2-12.0 [facility] Work Phone: [phone] Determination of erythrocyte mean corpuscular volume (MCV)on 01-15-2022 MCV (RBC) [Entitic vol] 89.1 fL 80-94 [facility] Work Phone: [phone] Hematocrit Auto (Bld) [Volum e fraction]on 01-15-2022 Hematocrit (Bld) [Volume fraction] 44.2 % 40-54 [facility] Work Phone: [phone] Ketones Test strip Ql (U)on 01-15-2022 Ketones Ql (U) 5 mg/dl Negative [facility] Work Phone: Laboratory - Chemistry and C hemistry - challengeon 01-15-2022 CO2 [Moles/Vol] 24.0 mmol/L 21.0-32.0 [facility] Work Phone: [phone] Urea nitrogen/Creatinine [Mass ratio] 9.1 mg/mg 10-20 [facility] Work Phone: [phone] Laboratory - Hematology and Cell countson 01-15-2022 Erythrocyte distribution width (RBC) [Entitic vol] 42.2 fL 35.1-43.9 [facility] Work Phone: [phone] Erythrocyte distribution width (RBC) [Ratio] 12.9 % 11.6-14.6 [facility] Work Phone: [phone] Immature granulocytes/100 WBC (Bld) 0.900 % 0.0-0.9 [facility] Work Phone: [phone] Comment on above: IG% - Immature Granu locytes (promyelocytes, myelocytes and metamyelocytes) > 1% indicates that a LEFT SHIFT is Present. MCH (RBC) [Entitic mass] 29.8 pg 27.0-32.0 [facility] Work Phone: [phone] Nucleated RBC/100 WBC (Bld) [Ratio] 0 % 0-5 [facility] Work Phone: [phone] MCHC Auto (RBC) [Mass/Vol]on 01-15-2022 MCHC (RBC) [Mass/Vol] 33.5 g/dL 32-36 [facility] Work Phone: Mucus LM Ql (Urine sed)on Mucus Ql (Urine sed) 0 SEEN /hpf [facility] Work Phone: Nitrite Test strip Ql (U)on 01-15-2022 Nitrite Ql (U) Negative Negative [facility] Work Phone: No Panel Informationon 01-15 Estimated Creatinine Clearance Calc 41.61 ml/min [facility] Work Phone: Estimated GFR (MDRD) Amer 47 mL/min >60 [facility] Work Phone: Comment on above: GFR Calc Estimated GFR (MDRD) Non-Af Amer 39 mL/min >60 [facility] Work Phone: Comment on above: Non- GFR Calc Platelets bldon 01-15-2022 Platelets (Bld) [#/Vol] 230 10*3/uL 150-450 [facility] Work Phone: Protein Test strip Ql (U)on 01-15-2022 Protein Ql (U) Negative Negative [facility] Work Phone: [phone] Serum or plasma calcium raul urement (mass/volume)on 01-15-2022 Calcium [Mass/Vol] 9.5 mg/dL 8.5-10.1 [facility] Work Phone: [phone] Serum or plasma creatinine m easurement (mass/volume)on 01-15-2022 Creatinine [Mass/Vol] 1.86 mg/dL 0.70-1.30 [facility] Work Phone: Comment on above: The validity of the calculated GFR & GFRAA in patients over 70 years has not been determined. Clinical correlation is essential. Serum or plasma urea nitroge n measurement (mass/volume)on 01-15-2022 Urea nitrogen [Mass/Vol] 17 mg/dL 7-18 [facility] Work Phone: [phone] Squamous epithelial cells de tection in urine sediment by light microscopyon 01-15-2022 Epithelial cells.squamous LM Ql (Urine sed) 0 SEEN /hpf [facility] Work Phone: Thin prep Papanicolaou smear with manual screeningon 01-15-2022 Thin prep Papanicolaou smear with manual screening 5 5-15 [facility] Work Phone: Urine blood detectionon 01-02 RBC Ql (U) Negative Negative [facility] Work Phone: RBC Ql (U) 0 SEEN /hpf [facility] Work Phone: Urine clarityon 01-15-2022 Clarity (U) Clear Clear [facility] Work Phone: Urine color determinationon 01-15-2022 Color (U) Yellow Yellow [facility] Work Phone: Urine glucose detectionon Glucose Ql (U) Normal mg/dl Normal [facility] Work Phone: Urine leukocyte esterase det ection by dipstickon 01-15-2022 Leukocyte esterase Test strip Ql (U) 25 /ul Negative [facility] Work Phone: Urine pHon 01-15-2022 pH (U) 6.0 [pH] [facility] Work Phone: Urine sediment bacteria coun t by microscopy (number/high power field)on 01-15-2022 Bacteria LM.HPF (Urine sed) [#/Area] 0 /[HPF] None Seen [facility] Work Phone: Urine specific gravity measu rementon 01-15-2022 Specific gravity (U) [Rel density] 1.015 [facility] Work Phone: Urobilinogen Auto test strip Ql (U)on 01-15-2022 Urobilinogen Ql (U) Normal mg/dl Normal [facility] Work Phone: COVID-19Ordered By: Hamilton marc on 05-31-2021 SARS-CoV-2 (COVID-19) RNA TAYLA+probe Ql (Unsp spec) Not detected Not Detected [facility] Work Phone: Comment on above: Not Detected. Expected Result: Not Detected _ Real-time, RT-PCR performed on the [employer] System by the [facility] [employer]. Negative results do not preclude SARS-CoV-2 infection and should not be used as the sole basis for treatment or other patient management decisions. This assay was developed by [employer] and distributed under an Emergency Use Authorization (EUA) granted by the FDA for the qualitative detection of SARS-CoV-2 nucleic acid. Test Performed by [facility], [address] [place] [address] [facility] Work Phone: [id number] 05-31-2021 SARS-CoV-2 (COVID-19) RNA TAYLA+probe Ql (Unsp spec) SARS-CoV-2 --> Status: F Not Detected. Expected Result: Not Detected _ Real-time, RT-PCR performed on the [employer] System by the [facility] [employer] [facility]. Negative results do not preclude SARS-CoV-2 infection and should not be used as the sole basis for treatment or other patient management decisions. This assay was developed by [employer] and distributed under an Emergency Use Authorization (EUA) granted by the FDA for the qualitative detection of SARS-CoV-2 nucleic acid. Expected Result: Not Detected _ Real-time, RT-PCR performed on the [employer] System by [facility]. Negative results do not preclude SARS-CoV-2 infection and should not be used as the sole basis for treatment or other patient management decisions. This assay was developed by [employer] and distributed under an Emergency Use Authorization (EUA) granted by the FDA for the qualitative detection of SARS-CoV-2 nucleic acid. Normal [facility] [employer] Comment on above: Performed By: #### C OVID #### [facility] [address] [place] [address] VL DUP LOWER EXTREMITY VENOU S BILATERALOrdered By: Hamilton Mckinnon on 05-29-2021 [facility] -------- Lower Extremity Venous Duplex Report Patient Luis Manuel, : 1955 Study 05/29/2021 Name: Albin Zazueta (yr) Date: Patient [id number] Age: 66 Account: [id number] ID: Gender: M Loc: 6111 BP: Ordering Physician: Hamilton Mckinnon Logistics Assistant: Silva Ann RVT Interpreting Physician: Paco Tijerina M.D. -------- Location: [facility] -------- Indications: Lower extremity swelling [...] supine position. Images were obtained using a Jobster E9 vascular ultrasound machine. -------- Venous flow [...] + -------+ --------+ (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 [facility] Work Phone: Mynor, [employer] Incoming Cardiology Results From [email or web address] - 05/29/2021 4:51 PM EDT [facility] -------- Lower Extremity Venous Duplex Report Patient Luis Manuel, : 1955 Study 05/29/2021 Name: Albin Zazueta (yr) Date: Patient Age: 66 Account: [id number] ID: Gender: Nilam Loc: 6111 BP: Ordering Physician: Hamilton Mckinnon Logistics Assistant: Silva Ann RVT Interpreting Physician: Paco Tijerina M.D. -------- Location: [facility] -------- Indications: Lower extremity swelling [...] supine position. Images were obtained using a Jobster E9 vascular ultrasound machine. -------- Venous flow [...] signed by Paco Tijerina M.D. 05/29/2021 16:51 [facility] Work Phone: [facility] Work Phone: VL Venous Duplex US Lower Ex t Bilateralon 05-29-2021 VL Venous Duplex US Lower Ext Bilateral Patient Name: ALBIN ISSA Ultrasound ACCESSION EXAM DATE/TIME PROCEDURE ORDERING PROVIDER [id number] 05/29/2021 15:17 EDT VL Venous Duplex US [id number] -HAMILTON MCKINNON Lower Ext Bilateral CPT code 62474 Reason For Exam (VL Venous Duplex US Lower Ext Bilateral) edema Report [facility] -------- Lower Extremity Venous Duplex Report Patient Luis Manuel : 1955 Study 05/29/2021 Name: Albin Zazueta (yr) Date: Patient Age: 66 Account: [id number] ID: Gender: M Loc: 6111 BP: Ordering Physician: Hamilton Mckinnon Logistics Assistant: Silva Ann RVT Interpreting Physician: Paco Tijerina M.D. -------- Location: [facility] -------- Indications: Lower extremity swelling [...] Images were obtained Ultrasound Report using a Jobster E9 vascular ultrasound machine. -------- Venous flow [...] -------+ --------+ (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 Normal [facility] Basic Metabolic Panelon 06-2 Anion gap [Moles/Vol] 5 mmol/L Normal 3-13 [facility] Comment on above: Performed By: #### C OVID #### [facility] [address] [place], [place] Calcium [Mass/Vol] 9.4 mg/dL Normal 8.4-10.4 [facility] Comment on above: Performed By: #### C OVID #### [facility] [address] [place], [place] CO2 [Moles/Vol] 23 mmol/L Normal 22-30 [facility] Comment on above: Performed By: #### C OVID #### [facility] [address] [place] [address] Glucose [Mass/Vol] 122 mg/dL High 70-100 [facility] Comment on above: Performed By: #### C OVID #### [facility] [address] [place], [place] Urea nitrogen [Mass/Vol] 15 mg/dL Normal 7-20 [facility] Comment on above: Performed By: #### C OVID #### [facility] [address] [place], [place] Creatinine [Mass/Vol] 1.13 mg/dL Normal 0.52-1.25 [facility] Comment on above: Performed By: #### C OVID #### [facility] [address] [place] [facility] [place] [address] GFR/1.73 sq M.predicted among blacks MDRD (S/P/Bld) [Vol rate/Area] 78.0 mL/min/{1.73_m2} Normal >60 [facility] Comment on above: Performed By: #### C OVID #### [facility] [address] [place] [address] GFR/1.73 sq M.predicted among non-blacks MDRD (S/P/Bld) [Vol rate/Area] 67.3 mL/min/{1.73_m2} Normal >60 [facility] Comment on above: Result Comment: KDIG [...] secretion. Performed By: #### C OVID #### [address] Potassium [Moles/Vol] 4.5 mmol/L Normal 3.5-5.1 [facility] Comment on above: Performed By: #### C OVID #### [address] Chloride [Moles/Vol] 109 mmol/L High 98-107 [facility] Comment on above: Performed By: #### C OVID #### [address] Sodium [Moles/Vol] 137 mmol/L Normal 135-145 [facility] Comment on above: Performed By: #### C OVID #### [address] Basic Metabolic PanelOrdered By: Sd Moreno on 05-25-2021 Anion gap [Moles/Vol] 5 mmol/L 3 - 13 mmol/L [facility] Work Phone: Calcium [Mass/Vol] 9.4 mg/dL 8.4 - 10. 4 mg/dL [facility] Work Phone: [phone] Chloride [Moles/Vol] 109 mmol/L High 98 - 10 7 mmol/L [facility] Work Phone: [phone] [Moles/Vol] 23 mmol/L 22 - 30 mmol/L [facility] Work Phone: [phone] Creatinine [Mass/Vol] 1.13 mg/dL 0.52 - 1.25 mg/dL [facility] Work Phone: [phone] IF NonAfrican Togolese 67.3 mL/min >60 [facility] Work Phone: [phone] Comment on above: KDIGO guidelines pro vide [...] rate/Area] 78.0 mL/min/{1.73_m2} >60 [facility] Work Phone: [phone] Glucose [Mass/Vol] 122 mg/dL High 70 - 100 mg/dL [facility] Work Phone: [phone] Potassium [Moles/Vol] 4.5 mmol/L 3.5 - 5.1 mmol/L [facility] Work Phone: [phone] Sodium [Moles/Vol] 137 mmol/L 135 - 145 mmol/L [facility] Work Phone: [phone] Urea nitrogen (BldV) [Mass/Vol] 15 mg/dL 7 - 20 mg/dL [facility] Work Phone: [phone] Auto DifferentialOrdered By: Sd Moreno on [...] Interpretation and review of laboratory results Abnormal [facility] Work Phone: Lymphocytes (Bld) [#/Vol] 0.7 10*3/uL [...] [#/Vol] 0.5 10*3/uL 0.0 - 0.8 10*3/uL [facility] Work Phone: [phone] Monocytes/100 WBC (Bld) 5.1 % 2.0 - 10.0 % [facility] Work Phone: [phone] Platelet distribution width (Bld) [Ratio] 13.7 % 11.5 - 14.5 % [facility] Work Phone: [phone] Platelet mean volume (Bld) [Entitic vol] 8.0 fL 7.4 - 10.4 fL [facility] Work Phone: 1) Platelets (Bld) [#/Vol] 171 10*3/uL 140 - 440 10*3/uL [facility] Work Phone: 1) RBC (Bld) [#/Vol] 3.90 10*6/uL Low 4.40 - 5.9 0 10*6/uL [facility] Work Phone: [phone]) WBC (Bld) [#/Vol] 10.4 10*3/uL 3.6 - 10.7 10*3/uL [facility] Work Phone: [phone] Test Performed by [facility] [employer], [address] [place] [address] [facility] Work Phone: [phone] [facility] Work Phone: [phone] Hemogram w/ Autodiffon 05-25 Abs Baso Cnt 0.0 10*3/uL Normal 0.0-0.2 [facility] Comment on above: Performed By: #### C OVID #### [facility] [employer] [address] [place] [address] Abs Neutrophile Cnt 9.2 10*3/uL High 1.8-7.0 [facility] Comment on above: Performed By: #### C OVID #### [facility] [address] [place] [address] Basophils/100 WBC (Bld) 0.1 % Normal 0.0-2.0 [facility] Comment on above: Performed By: #### C OVID #### [facility] [address] [place] [address] Eosinophils (Bld) [#/Vol] 0.0 10*3/uL Normal 0.0-0.5 [facility] Comment on above: Performed By: #### C OVID #### [facility] [address] [place] [address] Eosinophils/100 WBC (Bld) 0.1 % Low 1.0-6.0 [facility] Comment on above: Performed By: #### C OVID #### [facility] [address] [place] [address] Erythrocyte distribution width (RBC) [Ratio] 13.7 % Normal 11.5-14.5 [facility] Comment on above: Performed By: #### C OVID #### [address] [place] [address] Granulocytes/100 WBC (Bld) 88.1 % High 40.0-80.0 [facility] Comment on above: Performed By: #### C OVID #### [address] [place] [address] Hematocrit (Bld) [Volume fraction] 34.4 % Low 40.0-52.0 [facility] Comment on above: Performed By: #### C OVID #### [address] [place] [address] Hemoglobin (Bld) [Mass/Vol] 11.9 g/dL Low 13.0-18.0 [facility] Comment on above: Performed By: #### C OVID #### [facility] [address] [place] [address] Lymphocytes (Bld) [#/Vol] 0.7 10*3/uL Low 1.0-4.3 [facility] Comment on above: Performed By: #### C OVID #### [address] [place] [address] Lymphocytes/100 WBC (Bld) 6.6 % Low 20.0-40.0 [facility] Comment on above: Performed By: #### C OVID #### [address] [place], [place] MCH (RBC) [Entitic mass] 30.6 pg Normal 26.0-34.0 [facility] Comment on above: Performed By: #### C OVID #### [address] [place], [place] MCHC 34.7 % Normal 32.0-36.0 [facility] Comment on above: Performed By: #### C OVID #### [address] [place], [place] MCV (RBC) [Entitic vol] 88.4 fL Normal 80.0-98.0 [facility] Comment on above: Performed By: #### C OVID #### [address] [place], [place] Monocytes (Bld) [#/Vol] 0.5 10*3/uL Normal 0.0-0.8 [facility] Comment on above: Performed By: #### C OVID #### [address] [place], [place] Monocytes/100 WBC (Bld) 5.1 % Normal 2.0-10.0 [facility] Comment on above: Performed By: #### C OVID #### [address] [place], [place] Platelet mean volume (Bld) [Entitic vol] 8.0 fL Normal 7.4-10.4 [facility] Comment on above: Performed By: #### C OVID #### [address] [place], [place] Platelets (Bld) [#/Vol] 171 10*3/uL Normal 140-440 [facility] Comment on above: Performed By: #### C OVID #### [address] [place], [place] RBC (Bld) [#/Vol] 3.90 10*6/uL Low 4.40-5.90 [facility] Comment on above: Performed By: #### C OVID #### [address] [place], [place] WBC (Bld) [#/Vol] 10.4 10*3/uL Normal 3.6-10.7 [facility] Comment on above: Performed By: #### C OVID #### [address] [address] Magnesiumon 05-25-2021 Magnesium [Mass/Vol] 2.0 mg/dL Normal 1.6-2.3 [facility] Comment on above: Performed By: #### C OVID #### [address] [address] MagnesiumOrdered By: Sd trevino on 05-25-2021 Magnesium [Mass/Vol] 2.0 mg/dL 1.6 - 2 .3 mg/dL [facility] Work Phone: No Panel InformationOrdered By: Sd Moreno on 05-25-2021 Interpretation and review of laboratory results Abnormal [facility] Work Phone: Test Performed by [address] [address] [facility] Work Phone: [facility] Work Phone: Phosphoruson 05-25-2021 Phosphate [Mass/Vol] 1.8 mg/dL Low 2.5-4.5 [facility] Comment on above: Performed By: #### C OVID #### [address] [address] PhosphorusOrdered By: Sd Moreno on 05-25-2021 Phosphate [Mass/Vol] 1.8 mg/dL Low 2.5 - 4 .5 mg/dL [facility] Work Phone: Basic Metabolic Panelon 05-03 Calcium [Mass/Vol] 9.3 mg/dL Normal 8.4-10.4 [facility] Comment on above: Performed By: #### P HOS3, HEMDF, MG3, BMP3 #### [address] [address] Anion gap [Moles/Vol] 5 mmol/L Normal 3-13 [facility] Comment on above: Performed By: #### P HOS3, HEMDF, MG3, BMP3 #### [address] CO2 [Moles/Vol] 23 mmol/L Normal 22-30 [facility] Comment on above: Performed By: #### P HOS3, HEMDF, MG3, BMP3 #### [address] Creatinine [Mass/Vol] 1.02 mg/dL Normal 0.52-1.25 [facility] Comment on above: Performed By: #### P HOS3, HEMDF, MG3, BMP3 #### [address] GFR/1.73 sq M.predicted among blacks MDRD (S/P/Bld) [Vol rate/Area] 88.3 mL/min/{1.73_m2} Normal >60 [facility] Comment on above: Performed By: #### P HOS3, HEMDF, MG3, BMP3 #### [address] GFR/1.73 sq M.predicted among non-blacks MDRD (S/P/Bld) [Vol rate/Area] 76.2 mL/min/{1.73_m2} Normal >60 [facility] Comment on above: Result Comment: KDIG [...] #### P HOS3, HEMDF, MG3, BMP3 #### [address] [place], [place] Glucose [Mass/Vol] 100 mg/dL Normal 70-100 [facility] Comment on above: Performed By: #### P HOS3, HEMDF, MG3, BMP3 #### [address] [place], [place] Urea nitrogen [Mass/Vol] 15 mg/dL Normal 7-20 [facility] Comment on above: Performed By: #### P HOS3, HEMDF, MG3, BMP3 #### [address] [place], [place] Chloride [Moles/Vol] 109 mmol/L High 98-107 [facility] Comment on above: Performed By: #### P HOS3, HEMDF, MG3, BMP3 #### [address] [place], [place] Potassium [Moles/Vol] 4.0 mmol/L Normal 3.5-5.1 [facility] Comment on above: Performed By: #### P HOS3, HEMDF, MG3, BMP3 #### [address] [place], [place] Sodium [Moles/Vol] 137 mmol/L Normal 135-145 [facility] Comment on above: Performed By: #### P HOS3, HEMDF, MG3, BMP3 #### [address] [place], [place] Basic Metabolic PanelOrdered By: Linda Mcknight on 05-24-2021 Anion gap [Moles/Vol] 5 mmol/L 3 - 13 mmol/L [facility] Work Phone: Calcium [Mass/Vol] 9.3 mg/dL 8.4 - 10. 4 mg/dL [facility] Work Phone: [phone] Chloride [Moles/Vol] 109 mmol/L High 98 - 10 7 mmol/L [facility] Work Phone: CO2 [Moles/Vol] 23 mmol/L 22 - 30 mmol/L [facility] Work Phone: [phone] Creatinine [Mass/Vol] 1.02 mg/dL 0.52 - 1.25 mg/dL [facility] Work Phone: [phone] EGFR IF NonAfrican Togolese 76.2 mL/min >60 [facility] Work Phone: [phone] Comment on above: KDIGO guidelines pro vide [...] (S/P/Bld) [Vol rate/Area] 88.3 mL/min/{1.73_m2} >60 [facility] Work Phone: [phone] Glucose [Mass/Vol] 100 mg/dL 70 - 100 mg/dL [facility] Work Phone: [phone] Interpretation and review of laboratory results Abnormal [facility] Work Phone: [phone] Potassium [Moles/Vol] 4.0 mmol/L 3.5 - 5.1 mmol/L [facility] Work Phone: [phone] Sodium [Moles/Vol] 137 mmol/L 135 - 145 mmol/L [facility] Work Phone: [phone] Urea nitrogen (BldV) [Mass/Vol] 15 mg/dL 7 - 20 mg/dL [facility] Work Phone: [phone] CBC auto differentialOrdered By: Linda Mcknight on 05-24-2021 Absolute Baso # 0.0 10*3/uL 0.0 - 0.2 10*3/uL [facility] Work Phone: [phone] Absolute Neut # 5.5 [...] Interpretation and review of laboratory results Abnormal [facility] Work Phone: Lymphocytes (Bld) [#/Vol] 1.3 10*3/uL [...] 0.0 - 0.8 10*3/uL [facility] Work Phone: [phone] Monocytes/100 WBC (Bld) 6.1 % 2.0 - 10.0 % [facility] Work Phone: [phone] Platelet distribution width (Bld) [Ratio] 14.2 % 11.5 - 14.5 % [facility] Work Phone: [phone] Platelet mean volume (Bld) [Entitic vol] 8.0 fL 7.4 - 10.4 fL [facility] Work Phone: [phone] Platelets (Bld) [#/Vol] 169 10*3/uL 140 - 440 10*3/uL [facility] Work Phone: [phone] RBC (Bld) [#/Vol] 4.17 10*6/uL Low 4.40 - 5.9 0 10*6/uL [facility] Work Phone: [phone] WBC (Bld) [#/Vol] 7.6 10*3/uL 3.6 - 10.7 10*3/uL [facility] Work Phone: [phone] Test Performed by [facility], [address] [place] [address] [facility] Work Phone: [phone] [facility] Work Phone: [phone] CR Chest 1 View Frontalon CR Chest 1 View Frontal Patient Name: ALBIN ISSA Diagnostic Radiology ACCESSION EXAM DATE/TIME PROCEDURE ORDERING PROVIDER [id number] 05/24/2021 05:59 EDT CR Chest 1 View Frontal MD RAYA, JUAN ALBERTO CPT code 45397 Reason For Exam (CR Chest 1 View [...] Transcribed Date and Time: 05/24/2021 8:47 Normal [facility] CR Elbow 3+ Views Lefton CR Elbow 3+ Views Left [id number]iology ACCESSION EXAM DATE/TIME PROCEDURE ORDERING PROVIDER [id number] 05/24/2021 05:59 EDT CR Elbow 3+ Views Left MD FONTANA ALEX CPT code 01332 Reason For Exam (CR Elbow 3+ Views [...] Transcribed Date and Time: 05/24/2021 8:44 Normal [facility] CR Humerus 2+ Views Lefton 0 05-24-2021 CR Humerus 2+ Views Left [id number] Radiology ACCESSION EXAM DATE/TIME PROCEDURE ORDERING PROVIDER [id number] 05/24/2021 17:43 EDT CR Humerus 2+ Views Left [id number] SD BHARDWAJ CPT code 20765 Reason For Exam (CR Humerus 2+ Views [...] Transcribed Date and Time: 05/24/2021 5:44 Normal [facility] EKG 12 LeadOrdered By: Juan Alberto Fontana on 05-24-2021 [facility] Test Date: 2021-05-24 Pat Name: ALBIN ISSA Department: 1AH6 Room: [facility] Gender: M [employer]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1955 Requested By: JUAN ALBERTO FONTANA Order Number: [id number] Reading : Nicolas Gonzales Measurements Intervals [place] Rate: 66 P: 33 IN: 183 QRS: -35 QRSD: 112 T: 52 QT: 426 QTc: 447 Interpretive Statements Sinus rhythm ANTEROLATERAL INFARCT, OLD Electronically Signed On 05-24-2021 15:05:50 EDT by Nicolas Gonzales [facility] Work Phone: [phone] [place], [facility] Incoming Cardiology Results From [facility] - 05/24/2021 3:06 PM EDT [facility] Test Date: 2021-05-24 Pat Name: ALBIN ISSA Department: 1AH6 Room: 1PAC Gender: M 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 [address] Abs Neutrophile Cnt 5.5 10*3/uL Normal 1.8-7.0 [facility] Comment on above: Performed By: #### P HOS3, HEMDF, MG3, BMP3 #### [address] [address] Basophils/100 WBC (Bld) 0.5 % Normal 0.0-2.0 [facility] Comment on above: Performed By: #### P HOS3, HEMDF, MG3, BMP3 #### [address] [place] [address] Eosinophils (Bld) [#/Vol] 0.3 10*3/uL Normal 0.0-0.5 [facility] Comment on above: Performed By: #### P HOS3, HEMDF, MG3, BMP3 #### [address] [address] Eosinophils/100 WBC (Bld) 3.3 % Normal 1.0-6.0 [facility] Comment on above: Performed By: #### P HOS3, HEMDF, MG3, BMP3 #### [address] [address] Erythrocyte distribution width (RBC) [Ratio] 14.2 % Normal 11.5-14.5 [facility] Comment on above: Performed By: #### P HOS3, HEMDF, MG3, BMP3 #### [address] [address] Granulocytes/100 WBC (Bld) 72.8 % Normal 40.0-80.0 [facility] Comment on above: Performed By: #### P HOS3, HEMDF, MG3, BMP3 #### [address], [place] Hematocrit (Bld) [Volume fraction] 37.4 % Low 40.0-52.0 [facility] Comment on above: Performed By: #### P HOS3, HEMDF, MG3, BMP3 #### [address] Hemoglobin (Bld) [Mass/Vol] 12.8 g/dL Low 13.0-18.0 [facility] Comment on above: Performed By: #### P HOS3, HEMDF, MG3, BMP3 #### [address] Lymphocytes (Bld) [#/Vol] 1.3 10*3/uL Normal 1.0-4.3 [facility] Comment on above: Performed By: #### P HOS3, HEMDF, MG3, BMP3 #### [address] Lymphocytes/100 WBC (Bld) 17.3 % Low 20.0-40.0 [facility] Comment on above: Performed By: #### P HOS3, HEMDF, MG3, BMP3 #### [address] MCH (RBC) [Entitic mass] 30.8 pg Normal 26.0-34.0 [facility] Comment on above: Performed By: #### P HOS3, HEMDF, MG3, BMP3 #### [address] MCHC 34.3 % Normal 32.0-36.0 [facility] Comment on above: Performed By: #### P HOS3, HEMDF, MG3, BMP3 #### [address] MCV (RBC) [Entitic vol] 89.9 fL Normal 80.0-98.0 [facility] Comment on above: Performed By: #### P HOS3, HEMDF, MG3, BMP3 #### [address] Monocytes (Bld) [#/Vol] 0.5 10*3/uL Normal 0.0-0.8 [facility] Comment on above: Performed By: #### P HOS3, HEMDF, MG3, BMP3 #### [facility] [address] [place], [place] Monocytes/100 WBC (Bld) 6.1 % Normal 2.0-10.0 [facility] Comment on above: Performed By: #### P HOS3, HEMDF, MG3, BMP3 #### [place] [address] [address] [place], [place] Platelet mean volume (Bld) [Entitic vol] 8.0 fL Normal 7.4-10.4 [facility] Comment on above: Performed By: #### P HOS3, HEMDF, MG3, BMP3 #### [place] [address] [address] [place], [place] Platelets (Bld) [#/Vol] 169 10*3/uL Normal 140-440 [facility] Comment on above: Performed By: #### P HOS3, HEMDF, MG3, BMP3 #### [place] [address] [address] [place], [place] RBC (Bld) [#/Vol] 4.17 10*6/uL Low 4.40-5.90 [facility] Comment on above: Performed By: #### P HOS3, HEMDF, MG3, BMP3 #### [place] [address] [address] [place], [place] WBC (Bld) [#/Vol] 7.6 10*3/uL Normal 3.6-10.7 [facility] Comment on above: Performed By: #### P HOS3, HEMDF, MG3, BMP3 #### [address] [place], [place] Magnesiumon 05-24-2021 Magnesium [Mass/Vol] 2.0 mg/dL Normal 1.6-2.3 [facility] Comment on above: Performed By: #### P HOS3, HEMDF, MG3, BMP3 #### [facility] [address] [place] [phone] MagnesiumOrdered By: Sd trevino on 05-24-2021 Magnesium [Mass/Vol] 2.0 mg/dL 1.6 - 2 .3 mg/dL [facility] Work Phone: No Panel InformationOrdered By: Linda Mcknight on 05-24-2021 Test Performed by [facility], [address] [place] [address] [facility] Work Phone: [phone] [facility] Work Phone: [phone] OPERATIVE REPORTOrdered By: 3m Scanning on 05-24-2021 [facility] Work Phone: Op Noteon 05-24-2021 Op Note [place] [address] TELEMETRY [address] [facility] [address] Dept: [phone] Loc: [phone] Operative Report Patient Name: Albin Issa Date of : 1955 Date of Surgery: 05/24/21 Pre-operative diagnosis: Left distal humeral shaft fracture Post-operative diagnosis: Same Procedure(s): Open reduction internal fixation of left humeral shaft fracture (CPT 44571) Surgeon: Paco Biswas M.D. Slip Cover Cutter(s): Frank Leo M.D. and Carol Ascencio M.D. [...] as well as medical complications such as AK, stroke, PE, DVT, and even . Pt [...] Biswas MD at 05/24/21, 6:39 PM Normal [facility] Phosphoruson 05-24-2021 Phosphate [Mass/Vol] 2.9 mg/dL Normal 2.5-4.5 [facility] Comment on above: Performed By: #### P HOS3, HEMDF, MG3, BMP3 #### [address] [address] PhosphorusOrdered By: Sd Moreno on 05-24-2021 Phosphate [Mass/Vol] 2.9 mg/dL 2.5 - 4 .5 mg/dL [facility] Work Phone: Prothrombin Timeon INR 1.0 Normal 0.9-1.1 [facility] [employer] Comment on above: Result Comment: Hilario mmended [...] Infarction Performed By: #### C OVID #### [facility] [address] [place] [address] PT Coag (PPP) [Time] 11.2 s Normal 9.0-12.0 [facility] [employer] Comment on above: Result Comment: . Performed By: #### C OVID #### [employer] [address] [place] [phone] Protime-INROrdered By: Juan Alberto Fontana on 05-24-2021 INR Coag (Bld) [Relative time] 1.0 {INR} [facility] Work Phone: [phone] Comment on above: Recommended Anticoag ulant Therapy: [...] [Time] 11.2 s 9.0 - 12.0 s [facility] Work Phone: [phone] Comment on above: . Test Performed by [facility], [address] [place] [address] [facility] Work Phone: [phone] [facility] Work Phone: [phone] TS GELon 05-24-2021 TS GEL ABO Group: O Rh, Gel: POS Antibody Screen Gel: NEG Normal [facility] [employer] Comment on above: Performed By: #### T SGL #### [facility] [employer] TYPE AND SCREENOrdered By: Eder Fontana on 05-24-2021 ABO Grouping O [facility] Work Phone: [phone] Type Positive [facility] Work Phone: [phone] Test Performed by [facility], [address] [place] [address] [facility] Work Phone: [phone] [facility] Work Phone: [phone] XR CHEST 1 VWOrdered By: Magdalene Fontana on 05-24-2021 Patient Name: ALBIN ISSA Diagnostic Radiology ACCESSION EXAM DATE/TIME PROCEDURE ORDERING PROVIDER [id number] 05/24/2021 05:59 EDT CR Chest 1 View Frontal MD FONTANA ALEX CPT code 22229 Reason For Exam (CR Chest 1 View [...] LAURA Transcribed Date and Time: 05/24/2021 8:47 [facility] Work Phone: [place], [facility] Incoming Radiology Results From [facility] - 05/24/2021 8:51 AM EDT Patient Name: ALBIN ISSA Diagnostic Radiology ACCESSION EXAM DATE/TIME PROCEDURE ORDERING PROVIDER [id number] 05/24/2021 05:59 EDT CR Chest 1 View Frontal MD FONTANA ALEX CPT code 61238 Reason For Exam (CR Chest 1 View [...] Fontana on 05-24-2021 [facility]: [id number] Radiology ACCESSION EXAM DATE/TIME PROCEDURE ORDERING PROVIDER [id number] 05/24/2021 05:59 EDT CR Elbow 3+ Views Left MD FONTANA ALEX CPT code 29859 Reason For Exam (CR Elbow 3+ Views [...] Transcribed Date and Time: 05/24/2021 8:44 [facility] Work Phone: [place], [facility] Results From [facility] - 05/24/2021 8:48 AM EDT Patient Name: ALBIN ISSA Diagnostic Radiology ACCESSION EXAM DATE/TIME PROCEDURE ORDERING PROVIDER [id number] 05/24/2021 05:59 EDT CR Elbow 3+ Views Left MD FONTANA ALEX CPT code 17109 Reason For Exam (CR Elbow 3+ Views [...] Transcribed Date and Time: 05/24/2021 8:44 [facility] Work Phone: [facility] Work Phone: XR HUMERUS LEFT (MIN 2 VIEWS )Ordered By: Sd Moreno on 05-24-2021 Patient Name: ALBIN ISSA Diagnostic Radiology ACCESSION EXAM DATE/TIME PROCEDURE ORDERING PROVIDER [id number] 05/24/2021 17:43 EDT CR Humerus 2+ Views Left 15864 -SD MORENO CPT code 22152 Reason For Exam (CR Humerus 2+ Views [...] [facility] Incoming Radiology Results From [facility] - 05/24/2021 5:47 PM EDT Patient Name: ALBIN ISSA Diagnostic Radiology ACCESSION EXAM DATE/TIME PROCEDURE ORDERING PROVIDER [id number] 05/24/2021 17:43 EDT CR Humerus 2+ Views Left 65881 -SD MORENO CPT code 02962 Reason For Exam (CR Humerus 2+ Views [...] Work Phone: PROGRESSon 04-20-2020 PROGRESS HNO ID: [id number] Author: Radha Yu Service: ? Author Type: Physical Therapist Type: Progress Notes Filed: 04/20/2020 9:16 AM Note Text: 04/20/2020 [facility] PHYSICAL THERAPY DISCONTINUANCE [...] 07/06/19 through 09/05/19 Goals updated on 02/17/2020. [place] in home exercise program. (Met) Patient will [...] or scheduled additional follow-up appointments. RYAN Aldana [facility] CNTHERAPYon 02-17-2020 CNTHERAPY OT/PT/Speech Visit (PTWS) ALBIN ISSA ([id number]) 1955 M Date Time Provider Department 02/17/20 9:30 AM RADHA YU (PT) PTWS Date Time Provider Department Center 02/17/2020 9:30 AM [id number] YU (PT) PTWS [facility] Reason for Visit: PT Progress Note [4716] PT Discharge [752] Reason For Visit History [...] 07/06/19 through 09/05/19 Goals updated on 02/17/2020. [place] in home exercise program. (Met) Patient will [...] belt utilized during session for safety. Billing: [facility]: Therapeutic Exercise (06739): 1:1 time: 23 minutes (2 units: 23-37 mins) Gait Training (77729): 1:1 time: 15 minutes (1 unit: 8-22 mins) Total time: 38 minutes Radha Yu, PT Radha Yu PT 04/20/2020 9:16 AM Signed 04/20/2020 [facility] PHYSICAL THERAPY DISCONTINUANCE [...] 07/06/19 through 09/05/19 Goals updated on 02/17/2020. [place] in home exercise program. (Met) Patient will [...] appointments. Radha Yu PT Letter Text Normal [facility] PROGRESSon 02-17-2020 PROGRESS HNO ID: [id number] Author: Radha (Pt) Gigi Service: ? Author [...] 07/06/19 through 09/05/19 Goals updated on 02/17/2020. [place] in home exercise program. (Met) Patient will [...] belt utilized during session for safety. Billing: [facility]: Therapeutic Exercise (14911): 1:1 time: 23 minutes (2 units: 23-37 mins) Gait Training (07287): 1:1 time: 15 minutes (1 unit: 8-22 mins) Total time: 38 minutes Radha Yu PT Normal [facility] CNTHERAPYon 01-25-2020 CNTHERAPY OT/PT/Speech Visit (PTWS) ALBIN ISSA ([id number]) 1955 M Date Time Provider Department 01/25/20 3:30 PM RADHA YU (PT) PTWS Date Time Provider Department Center 01/25/2020 3:30 PM [id number] YU (PT) PTWS [facility] Reason for Visit: Physical Therapy [503] Primary Visit Diagnosis:S/P AKA (above knee amputation), right ([facility]) [Z89.611] Allergies As of Date: 01/25/2020 (Not [...] belt utilized during session for safety. Billing: [facility]: Therapeutic Exercise (72764): 1:1 time: 32 minutes (2 units: 23-37 mins) Gait Training (34137): 1:1 time: 18 minutes (1 unit: 8-22 mins) Total time: 50 minutes Radha Yu PT Normal [facility] PROGRESSon 01-25-2020 PROGRESS HNO ID: [id number] Author: Radha (Pt) Gigi Service: ? Author [...] belt utilized during session for safety. Billing: [facility]: Therapeutic Exercise (94414): 1:1 time: 32 minutes (2 units: 23-37 mins) Gait Training (86691): 1:1 time: 18 minutes (1 unit: 8-22 mins) Total time: 50 minutes Radha Yu PT Normal [facility] CNTHERAPYon 01-22-2020 CNTHERAPY OT/PT/Speech Visit (PTWS) ALBIN ISSA ([id number]) 1955 M Date Time Provider Department 01/22/20 1:45 PM RADHA YU (PT) PTWS Date Time Provider Department Center 01/22/2020 1:45 PM [id number] YU (PT) PTWS [facility] Reason for Visit: Physical Therapy [...] for Visit: Pt stating he saw the education courses sales representative again and was instructed to use 5 [...] assess proper use of assistive device. Billing: [facility]: Therapeutic Exercise (88540): 1:1 time: 28 minutes (2 units: 23-37 mins) Gait Training (79052): 1:1 time: 15 minutes (1 unit: 8-22 mins) Total time: 43 minutes Radha Yu PT Normal [facility] PROGRESSon 01-22-2020 PROGRESS HNO ID: [id number] Author: Radha (Pt) Gigi Service: ? Author [...] for Visit: Pt stating he saw the education courses sales representative again and was instructed to use 5 [...] assess proper use of assistive device. Billing: [facility]: Therapeutic Exercise (97901): 1:1 time: 28 minutes (2 units: 23-37 mins) Gait Training (98932): 1:1 time: 15 minutes (1 unit: 8-22 mins) Total time: 43 minutes Radha Yu PT Normal [facility] CNTHERAPYon 01-18-2020 CNTHERAPY OT/PT/Speech Visit (PTWS) ALBIN ISSA ([id number]) 1955 M Date Time Provider Department 01/18/20 3:30 PM RADHA YU (PT) PTWS Date Time Provider Department Center 01/18/2020 3:30 PM [id number] YU (PT) PTWS [facility] Reason for Visit: Physical Therapy [503] Primary Visit Diagnosis:S/P AKA (above knee amputation), right ([facility]) [Z89.611] Allergies As of Date: 01/18/2020 (Not [...] belt utilized during session for safety. Billing: [facility]: Therapeutic Exercise (39149): 1:1 time: 25 minutes (2 units: 23-37 mins) Gait Training (09924): 1:1 time: 15 minutes (1 unit: 8-22 mins) Total time: 40 minutes Radha Yu PT Normal [facility] PROGRESSon 01-18-2020 PROGRESS HNO ID: [id number] Author: Radha RichmondPtBarbie Yu Service: ? Author [...] belt utilized during session for safety. Billing: [facility]: Therapeutic Exercise (48163): 1:1 time: 25 minutes (2 units: 23-37 mins) Gait Training (47136): 1:1 time: 15 minutes (1 unit: 8-22 mins) Total time: 40 minutes Radha Lemon, PT Normal [facility] CNTHERAPYon 01-15-2020 CNTHERAPY OT/PT/Speech Visit (PTWS) ALBIN ISSA ([id number]) 1955 M Date Time Provider Department 01/15/20 1:45 PM RADHA YU (PT) PTWS Date Time Provider Department Center 01/15/2020 1:45 PM [id number] YU (PT) PTWS [facility] Reason for Visit: Physical Therapy [503] Primary Visit Diagnosis:S/P AKA (above knee amputation), right ([facility]) [Z89.611] Allergies As of Date: 01/15/2020 (Not [...] assess proper use of assistive device. Billing: [facility]: Therapeutic Exercise (71199): 1:1 time: 27 minutes (2 units: 23-37 mins) Gait Training (02707): 1:1 time: 15 minutes (1 unit: 8-22 mins) Total time: 42 minutes Radha Yu PT Normal [facility] PROGRESSon 01-15-2020 PROGRESS HNO ID: [id number] Author: Radha (Pt) Gigi Service: ? Author [...] assess proper use of assistive device. Billing: [facility]: Therapeutic Exercise (58492): 1:1 time: 27 minutes (2 units: 23-37 mins) Gait Training (03795): 1:1 time: 15 minutes (1 unit: 8-22 mins) Total time: 42 minutes Radha Yu PT Normal [facility] CNTHERAPYon 01-04-2020 CNTHERAPY OT/PT/Speech Visit (PTWS) ALBIN ISSA ([id number]) 1955 M Date Time Provider Department 01/04/20 3:30 PM RADHA YU (PT) PTWS Date Time Provider Department Center 01/04/2020 3:30 PM [id number] YU (PT) PTWS [facility] Reason for Visit: PT Progress [...] 07/06/19 through 09/05/19 Goals updated on 01/04/2020. [place] in home exercise program. (Met) Patient will [...] He states he has an appt with education courses sales representative this and will discuss with him. Pain: [...] belt utilized during session for safety. Billing: [facility]: Therapeutic Exercise (92880): 1:1 time: 25 minutes (2 units: 23-37 mins) Gait Training (31735): 1:1 time: 15 minutes (1 unit: 8-22 mins) Total time: 40 minutes Radha Yu PT Normal [facility] PROGRESSon 01-04-2020 PROGRESS HNO ID: [id number] Author: Radha (Pt) Gigi Service: ? Author [...] 07/06/19 through 09/05/19 Goals updated on 01/04/2020. [place] in home exercise program. (Met) Patient will [...] He states he has an appt with education courses sales representative this and will discuss with him. Pain: [...] belt utilized during session for safety. Billing: [facility]: Therapeutic Exercise (24935): 1:1 time: 25 minutes (2 units: 23-37 mins) Gait Training (65544): 1:1 time: 15 minutes (1 unit: 8-22 mins) Total time: 40 minutes Radha Yu PT Normal [facility] CNTHERAPYon 12-30-2019 CNTHERAPY OT/PT/Speech Visit (PTWS) ALBIN ISSA ([id number]) 1955 M Date Time Provider Department 12/30/19 10:15 AM RADHA YU (PT) PTWS Date Time Provider Department Center 12/30/2019 10:15 AM [id number] YU (PT) PTKAIT [facility] Reason for Visit: Physical Therapy [503] Primary Visit Diagnosis:S/P AKA (above knee amputation), right ([facility]) [Z89.611] Allergies As of Date: 12/30/2019 (Not [...] assess proper use of assistive device. Billing: [facility]: Therapeutic Exercise (13306): 1:1 time: 15 minutes (1 unit: 8-22 mins) Gait Training (49938): 1:1 time: 28 minutes (2 units: 23-37 mins) Total time: 43 minutes Radha Yu PT Normal [facility] PROGRESSon 12-30-2019 PROGRESS HNO ID: [id number] Author: Radha (Pt) Gigi Service: ? Author [...] assess proper use of assistive device. Billing: [facility]: Therapeutic Exercise (56718): 1:1 time: 15 minutes (1 unit: 8-22 mins) Gait Training (08581): 1:1 time: 28 minutes (2 units: 23-37 mins) Total time: 43 minutes Radha Yu PT Normal [facility] CNTHERAPYon 12-25-2019 CNTHERAPY OT/PT/Speech Visit (PTWS) ALBIN ISSA ([id number]) 1955 M Date Time Provider Department 12/25/19 2:00 PM ANN MESSINA (HEAD HOLDER) PTWS Date Time Provider Department Center 12/25/2019 2:00 PM [id number], NANCY (HEAD HOLDER) PTWS [facility] Reason for Visit: Physical Therapy [...] safety. Cueing for proper step length. Billing: [facility]: Therapeutic Exercise (27443): 1:1 time: 13 minutes (1 unit: 8-22 mins) Gait Training (52165): 1:1 time: 29 minutes (2 units: 23-37 mins) Total time: 42 minutes Ann Messina PT-Eder Sarmiento PT Previous Version Normal [facility] PROGRESSon 12-25-2019 PROGRESS HNO ID: [id number] Author: Fidel (Ryan) Torsten Service: ? Author [...] safety. Cueing for proper step length. Billing: [facility]: Therapeutic Exercise (03748): 1:1 time: 13 minutes (1 unit: 8-22 mins) Gait Training (15260): 1:1 time: 29 minutes (2 units: 23-37 mins) Total time: 42 minutes MOE Puga PT Normal [facility] CNTHERAPYon 12-21-2019 CNTHERAPY OT/PT/Speech Visit (PTWS) ALBIN ISSA ([id number]) 1955 M Date Time Provider Department 12/21/19 2:45 PM ANN MESSINA ([facility]) PTWS Date Time Provider Department Center 12/21/2019 2:45 PM [id number], NANCY (HEAD HOLDER) PTWS [facility] Reason for Visit: Physical Therapy [...] belt utilized during session for safety. Billing: [facility]: Therapeutic Exercise (04867): 1:1 time: 15 minutes (1 unit: 8-22 mins) Gait Training (16686): 1:1 time: 30 minutes (2 units: 23-37 mins) Total time: 45 minutes MOE Puga PT Previous Version Normal [facility] PROGRESSon 12-21-2019 PROGRESS HNO ID: [id number] Author: Radha (Pt) Gigi Service: ? Author [...] belt utilized during session for safety. Billing: [facility]: Therapeutic Exercise (99053): 1:1 time: 15 minutes (1 unit: 8-22 mins) Gait Training (02369): 1:1 time: 30 minutes (2 units: 23-37 mins) Total time: 45 minutes Ann Messina PT-Eder Yu PT Normal [facility] CNTHERAPYon 12-18-2019 CNTHERAPY OT/PT/Speech Visit (PTWS) ALBIN ISSA ([id number]) 1955 M Date Time Provider Department 12/18/19 1:15 PM ANN MESSINA (HEAD HOLDER) PTWS Date Time Provider Department Center 12/18/2019 1:15 PM [id number], NANCY (HEAD HOLDER) PTWS [facility] Reason for Visit: Physical Therapy [...] cues for upright posture during gait. Billing: [facility]: Therapeutic Exercise (01206): 1:1 time: 15 minutes (1 unit: 8-22 mins) Gait Training (49103): 1:1 time: 25 minutes (2 units: 23-37 mins) Total time: 40 minutes Ann Messina PT-Eder Phelps PT Previous Version Normal [facility] PROGRESSon 12-18-2019 PROGRESS HNO ID: [id number] Author: Anshu (Pt) Lenin Service: ? Author Type: Physical Therapist Type: Progress Notes Filed: 12/21/2019 8:32 AM Note Text: Episode Visit Count: 23 Therapist That Will Oversee The Plan Of Care: Kanejcarlos Radha Start of Care Date: 07/06/19 Onset [...] cues for upright posture during gait. Billing: [facility]: Therapeutic Exercise (33927): 1:1 time: 15 minutes (1 unit: 8-22 mins) Gait Training (15943): 1:1 time: 25 minutes (2 units: 23-37 mins) Total time: 40 minutes Ann Messina PTRYAN Maloney [facility] CNTHERAPYon 12-07-2019 CNTHERAPY OT/PT/Speech Visit (PTWS) ALBIN ISSA ([id number]) 1955 M Date Time Provider Department 12/07/19 10:30 AM RADHA YU (PT) PTWS Date Time Provider Department Center 12/07/2019 10:30 AM [id number] YU (PT) PTWS [facility] Reason for Visit: PT Progress [...] 07/06/19 through 09/05/19 Goals updated on 10/16/2019. [place] in home exercise program. (Met) Patient will [...] ambulating with 2 LBQCs. He notes the education courses sales representative took about 3/4 inches off of it [...] R LE above the knee prosthesis). Billing: [facility]: Therapeutic Exercise (10136): 1:1 time: 30 minutes (2 units: 23-37 mins) Gait Training (68293): 1:1 time: 10 minutes (1 unit: 8-22 mins) Total time: 40 minutes Radha Yu PT Previous Version Letter Text Normal [facility] PROGRESSon 12-07-2019 PROGRESS HNO ID: [id number] Author: Radha (Pt) Gigi Service: ? Author [...] 07/06/19 through 09/05/19 Goals updated on 10/16/2019. [place] in home exercise program. (Met) Patient will [...] ambulating with 2 LBQCs. He notes the education courses sales representative took about 3/4 inches off of it [...] R LE above the knee prosthesis). Billing: [facility]: Therapeutic Exercise (20403): 1:1 time: 30 minutes (2 units: 23-37 mins) Gait Training (03515): 1:1 time: 10 minutes (1 unit: 8-22 mins) Total time: 40 minutes Radha Yu PT Normal [facility] CNTHERAPYon 10-16-2019 CNTHERAPY OT/PT/Speech Visit (PTWS) ALBIN ISSA ([id number]) 1955 M Date Time Provider Department 10/16/19 2:30 PM RADHA YU (PT) PTWS Date Time Provider Department Center 10/16/2019 2:30 PM [id number] YU (PT) PTWS [facility] Reason for Visit: PT Progress [...] 07/06/19 through 09/05/19 Goals updated on 09/11/2019. [place] in home exercise program. (Met) Patient will [...] as noted. Objective measurements and reassessment. Billing: [facility]: Therapeutic Exercise (06120): 1:1 time: 40 minutes (3 units: 38-52 mins) Total time: 40 minutes Radha Yu PT Normal [facility] PROGRESSon 10-16-2019 PROGRESS HNO ID: [id number] Author: Radha (Pt) Gigi Service: ? Author [...] 07/06/19 through 09/05/19 Goals updated on 09/11/2019. [place] in home exercise program. (Met) Patient will [...] as noted. Objective measurements and reassessment. Billing: [facility]: Therapeutic Exercise (11601): 1:1 time: 40 minutes (3 units: 38-52 mins) Total time: 40 minutes Radha Yu PT Normal [facility] CNTHERAPYon 10-02-2019 CNTHERAPY OT/PT/Speech Visit (PTWS) ALBIN ISSA ([id number]) 1955 M Date Time Provider Department 10/02/19 8:00 AM RADHA YU (PT) PTWS Date Time Provider Department Center 10/02/2019 8:00 AM [id number] YU (PT) PTWS [facility] Reason for Visit: Physical Therapy [...] assess proper use of assistive device. Billing: [facility]: Therapeutic Exercise (57199): 1:1 time: 32 minutes (2 units: 23-37 mins) Gait Training (64270): 1:1 time: 8 minutes (1 unit: 8-22 mins) Total time: 40 minutes Radha Yu PT Normal [facility] PROGRESSon 10-02-2019 PROGRESS HNO ID: [id number] Author: Radha (Pt) Gigi Service: ? Author [...] assess proper use of assistive device. Billing: [facility]: Therapeutic Exercise (15315): 1:1 time: 32 minutes (2 units: 23-37 mins) Gait Training (36813): 1:1 time: 8 minutes (1 unit: 8-22 mins) Total time: 40 minutes Radha Yu PT Normal [facility] CNTHERAPYon 09-23-2019 CNTHERAPY OT/PT/Speech Visit (PTWS) ALBIN ISSA ([id number]) 1955 M Date Time Provider Department 09/23/19 2:15 PM ANN MESSINA (HEAD HOLDER) PTWS Date Time Provider Department Center 09/23/2019 2:15 PM [id number], NANCY (HEAD HOLDER) PTWS [facility] Reason for Visit: Physical Therapy [503] Primary Visit Diagnosis:S/P AKA (above knee amputation), right ([facility]) [Z89.611] Allergies As of Date: 09/23/2019 (Not [...] 1: Standing hip abductions left 3# 1x23 [id number] and right 3# 2x40 2: Standing hip [...] verbal and visual cuing. Billing:KX modifier applied [facility]: Therapeutic Exercise (87804): 1:1 time: 40 minutes (3 units: 38-52 mins) Total time: 40 minutes MOE Puga PT Previous Version Normal [facility] PROGRESSon 09-23-2019 PROGRESS HNO ID: [id number] Author: Radha (Pt) Gigi Service: ? Author [...] 1: Standing hip abductions left 3# 1x23 [id number] and right 3# 2x40 2: Standing hip [...] verbal and visual cuing. Billing:KX modifier applied [facility]: Therapeutic Exercise (32306): 1:1 time: 40 minutes (3 units: 38-52 mins) Total time: 40 minutes Ann Messina PT-RYAN Herrera [facility] CNTHERAPYon 09-11-2019 CNTHERAPY OT/PT/Speech Visit (PTWS) ALBIN ISSA ([id number]) 1955 M Date Time Provider Department 09/11/19 8:00 AM RADHA YU (PT) PTWS Date Time Provider Department Center 09/11/2019 8:00 AM [id number] YU (PT) PTWS [facility] Reason for Visit: PT Progress [...] 07/06/19 through 09/05/19 Goals updated on 09/11/2019. [place] in home exercise program. (Met) Patient will [...] assess proper use of assistive device. Billing: [facility]: Therapeutic Exercise (53409): 1:1 time: 27 minutes (2 units: 23-37 mins) Gait Training (94434): 1:1 time: 15 minutes (1 unit: 8-22 mins) Total time: 42 minutes Radha Yu PT Letter Text Normal [facility] PROGRESSon 10-11-2019 PROGRESS HNO ID: [id number] Author: Radha (Pt) Gigi Service: ? Author [...] 07/06/19 through 09/05/19 Goals updated on 09/11/2019. [place] in home exercise program. (Met) Patient will [...] assess proper use of assistive device. Billing: [facility]: Therapeutic Exercise (92769): 1:1 time: 27 minutes (2 units: 23-37 mins) Gait Training (64773): 1:1 time: 15 minutes (1 unit: 8-22 mins) Total time: 42 minutes Radha Yu PT Normal [facility] CNTHERAPYon 09-04-2019 CNTHERAPY OT/PT/Speech Visit (PTWS) ALBIN ISSA ([id number]) 1955 M Date Time Provider Department 09/04/19 2:00 PM ANN MESSINA (HEAD HOLDER) PTWS Date Time Provider Department Center 09/04/2019 2:00 PM [id number], NANCY (HEAD HOLDER) PTWS [facility] Reason for Visit: Physical Therapy [...] belt utilized during session for safety. Billing: [facility]: Therapeutic Exercise (15908): 1:1 time: 23 minutes (2 units: 23-37 mins) Gait Training (32908): 1:1 time: 20 minutes (1 unit: 8-22 mins) Total time: 43 minutes Ann Messina PT-Eder Sarmiento PT Previous Version Normal [facility] PROGRESSon 09-04-2019 PROGRESS HNO ID: [id number] Author: Fidel (Ryan) Torsten Service: ? Author [...] belt utilized during session for safety. Billing: [facility]: Therapeutic Exercise (82219): 1:1 time: 23 minutes (2 units: 23-37 mins) Gait Training (14033): 1:1 time: 20 minutes (1 unit: 8-22 mins) Total time: 43 minutes Ann Messina PTRichard Sarmiento PT Normal [facility] CNTHERAPYon 08-31-2019 CNTHERAPY OT/PT/Speech Visit (PTWS) ALBIN ISSA ([id number]) 1955 M Date Time Provider Department 08/31/19 1:15 PM ANN MESSINA (HEAD HOLDER) PTWS Date Time Provider Department Center 08/31/2019 1:15 PM [id number], NANCY (HEAD HOLDER) PTWS [facility] Reason for Visit: Physical Therapy [...] above. Gait belt used for safety. Billing: [facility]: Therapeutic Exercise (24186): 1:1 time: 28 minutes (2 units: 23-37 mins) Gait Training (62111): 1:1 time: 17 minutes (1 unit: 8-22 mins) Total time: 45 minutes MOE Puga PT Previous Version Normal [facility] PROGRESSon 08-31-2019 PROGRESS HNO ID: [id number] Author: Radha (Pt) Gigi Service: ? Author [...] above. Gait belt used for safety. Billing: [facility]: Therapeutic Exercise (29588): 1:1 time: 28 minutes (2 units: 23-37 mins) Gait Training (65015): 1:1 time: 17 minutes (1 unit: 8-22 mins) Total time: 45 minutes Ann Mesisna PT-RYAN Herrera [facility] CNTHERAPYon 08-28-2019 CNTHERAPY OT/PT/Speech Visit (PTWS) ALBIN ISSA ([id number]) 1955 M Date Time Provider Department 08/28/19 1:45 PM RADHA YU (PT) PTWS Date Time Provider Department Center 08/28/2019 1:45 PM [id number] YU (PT) PTWS [facility] Reason for Visit: Physical Therapy [...] for Visit: Pt states he saw the education courses sales representative yesterday and they are discussing starting the [...] orthotic device; Billing: [facility]: Therapeutic Exercise (81401): 1:1 time: 20 minutes (1 unit: 8-22 mins) Gait Training (05103): 1:1 time: 17 minutes (1 unit: 8-22 mins) Total time: 37 minutes (Pt was late d/t garage door breaking.) Radha Yu PT Normal [facility] PROGRESSon 08-28-2019 PROGRESS HNO ID: [id number] Author: Radha (Pt) Gigi Service: ? Author [...] for Visit: Pt states he saw the education courses sales representative yesterday and they are discussing starting the [...] assess proper use of orthotic device; Billing: [facility]: Therapeutic Exercise (33053): 1:1 time: 20 minutes (1 unit: 8-22 mins) Gait Training (07150): 1:1 time: 17 minutes (1 unit: 8-22 mins) Total time: 37 minutes (Pt was late d/t garage door breaking.) Radha Yu, PT Normal [facility] CNTHERAPYon 08-26-2019 CNTHERAPY OT/PT/Speech Visit (PTWS) ALBIN ISSA ([id number]) 1955 M Date Time Provider Department 08/26/19 2:15 PM ANN MESSINA (HEAD HOLDER) PTWS Date Time Provider Department Center 08/26/2019 2:15 PM [id number], NANCY (HEAD HOLDER) PTWS [facility] Reason for Visit: Physical Therapy [...] belt utilized during session for safety. Billing: [facility]: Therapeutic Exercise (26370): 1:1 time: 15 minutes (1 unit: 8-22 mins) Gait Training (55497): 1:1 time: 25 minutes (2 units: 23-37 mins) Total time: 40 minutes Ann Messina PT-Eder Yu, RYNA Previous Version Normal [facility] PROGRESSon 08-26-2019 PROGRESS HNO ID: [id number] Author: Radha (Pt) Gigi Service: ? Author [...] belt utilized during session for safety. Billing: [facility]: Therapeutic Exercise (59861): 1:1 time: 15 minutes (1 unit: 8-22 mins) Gait Training (39111): 1:1 time: 25 minutes (2 units: 23-37 mins) Total time: 40 minutes MOE Puga PT Normal [facility] CNTHERAPYon 08-24-2019 CNTHERAPY OT/PT/Speech Visit (PTWS) ALBIN ISSA ([id number]) 1955 M Date Time Provider Department 08/24/19 2:00 PM ANN MESSINA (HEAD HOLDER) PTWS Date Time Provider Department Center 08/24/2019 2:00 PM [id number], NANCY (HEAD HOLDER) PTWS [facility] Reason for Visit: Physical Therapy [503] Primary Visit Diagnosis:S/P AKA (above knee amputation), right ([facility]) [Z89.611] Allergies As of Date: 08/24/2019 (Not [...] belt utilized during session for safety. Billing: [facility]: Therapeutic Exercise (84231): 1:1 time: 15 minutes (1 unit: 8-22 mins) Gait Training (71284): 1:1 time: 30 minutes (2 units: 23-37 mins) Total time: 45 minutes Ann Messina, PTRichard Yu, RYAN Previous Version Normal [facility] PROGRESSon 08-24-2019 PROGRESS HNO ID: [id number] Author: Radha (Pt) Gigi Service: ? Author [...] belt utilized during session for safety. Billing: [facility]: Therapeutic Exercise (72456): 1:1 time: 15 minutes (1 unit: 8-22 mins) Gait Training (87306): 1:1 time: 30 minutes (2 units: 23-37 mins) Total time: 45 minutes Ann Messina PTRYAN Ledesma [facility] CNTHERAPYon 08-19-2019 CNTHERAPY OT/PT/Speech Visit (PTWS) ALBIN ISSA ([id number]) 1955 M Date Time Provider Department 08/19/19 11:00 AM RADHA YU (PT) PTWS Date Time Provider Department Center 08/19/2019 11:00 AM [id number] YU (PT) PTWS [facility] Reason for Visit: Physical Therapy [503] Primary Visit Diagnosis:S/P AKA (above knee amputation), right ([facility]) [Z89.611] Other Visit Diagnosis:Liposarcoma of thigh, 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 Billing: [facility]: Therapeutic Exercise (84643): 1:1 time: 25 minutes (2 units: 23-37 mins) Gait Training (97402): 1:1 time: 20 minutes (1 unit: 8-22 mins) Total time: 45 minutes Radha Yu PT Normal [facility] PROGRESSon 08-19-2019 PROGRESS HNO ID: [id number] Author: Radha (Pt) Gigi Service: ? Author [...] assess proper use of assistive device. Billing: [facility]: Therapeutic Exercise (13437): 1:1 time: 25 minutes (2 units: 23-37 mins) Gait Training (30407): 1:1 time: 20 minutes (1 unit: 8-22 mins) Total time: 45 minutes RYAN Aldana [facility] CNTHERAPYon 08-12-2019 CNTHERAPY OT/PT/Speech Visit (PTWS) ALBIN ISSA ([id number]) 1955 M Date Time Provider Department 08/12/19 1:30 PM RADHA YU (PT) PTWS Date Time Provider Department Center 08/12/2019 1:30 PM [id number] YU (PT) PTKAIT [facility] Reason for Visit: Physical Therapy [...] (Not during activities in parallel bars.) Billing: [facility]: Therapeutic Exercise (78626): 1:1 time: 25 minutes (2 units: 23-37 mins) Gait Training (70531): 1:1 time: 20 minutes (1 unit: 8-22 mins) Total time: 45 minutes Radha Yu, PT Normal [facility] PROGRESSon 08-12-2019 PROGRESS HNO ID: [id number] Author: Radha (Pt) Gigi Service: ? Author [...] (Not during activities in parallel bars.) Billing: [facility]: Therapeutic Exercise (25765): 1:1 time: 25 minutes (2 units: 23-37 mins) Gait Training (13082): 1:1 time: 20 minutes (1 unit: 8-22 mins) Total time: 45 minutes Radha Yu PT Normal [facility] CNTHERAPYon 08-10-2019 CNTHERAPY OT/PT/Speech Visit (PTWS) ALBIN ISSA ([id number]) 1955 M Date Time Provider Department 08/10/19 12:45 PM RADHA YU (PT) PTWS Date Time Provider Department Center 08/10/2019 12:45 PM [id number] YU (PT) PTWS [facility] Reason for Visit: Physical Therapy [503] Primary Visit Diagnosis:S/P AKA (above knee amputation), right ([facility]) [Z89.611] Other Visit Diagnosis:Liposarcoma of thigh, 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 Billing: [facility]: Therapeutic Exercise (45724): 1:1 time: 25 minutes (2 units: 23-37 mins) Gait Training (46627): 1:1 time: 20 minutes (1 unit: 8-22 mins) Total time: 45 minutes Radha Yu PT Normal [facility] PROGRESSon 08-10-2019 PROGRESS HNO ID: [id number] Author: Radha (Pt) Gigi Service: ? Author [...] his daughter is taking him to the [facility] today, but he is planning on using [...] belt utilized during session for safety. Billing: [facility]: Therapeutic Exercise (79111): 1:1 time: 25 minutes (2 units: 23-37 mins) Gait Training (59917): 1:1 time: 20 minutes (1 unit: 8-22 mins) Total time: 45 minutes Radha Yu PT Normal [facility] CNTHERAPYon 08-07-2019 CNTHERAPY OT/PT/Speech Visit (PTWS) ALBIN ISSA ([id number]) 1955 M Date Time Provider Department 08/07/19 11:00 AM RADHA YU (PT) PTWS Date Time Provider Department Center 08/07/2019 11:00 AM [id number], RADHA (PT) PTWS [facility] Reason for Visit: Physical Therapy [...] using LB quad cane and railing. Billing: [facility]: Therapeutic Exercise (62917): 1:1 time: 25 minutes (2 units: 23-37 mins) Gait Training (44431): 1:1 time: 20 minutes (1 unit: 8-22 mins) Total time: 45 minutes Radha Yu PT Normal [facility] PROGRESSon 08-07-2019 PROGRESS HNO ID: [id number] Author: Radha (Pt) Gigi Service: ? Author [...] using LB quad cane and railing. Billing: [facility]: Therapeutic Exercise (71098): 1:1 time: 25 minutes (2 units: 23-37 mins) Gait Training (35164): 1:1 time: 20 minutes (1 unit: 8-22 mins) Total time: 45 minutes Radha Yu PT Normal [facility] CNTHERAPYon 08-05-2019 CNTHERAPY OT/PT/Speech Visit (PTWS) ALBIN ISSA ([id number]) 1955 M Date Time Provider Department 08/05/19 9:30 AM RADHA YU (PT) PTWS Date Time Provider Department Center 08/05/2019 9:30 AM [id number] YU (PT) PTWS [facility] Reason for Visit: Physical Therapy [503] Primary Visit Diagnosis:S/P AKA (above knee amputation), right ([facility]) [Z89.611] Other Visit Diagnosis:Liposarcoma of thigh, 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 [place] in home exercise program. (Met) Patient will [...] surface and 180 deg turns negotiation. Billing: [facility]: Therapeutic Exercise (65513): 1:1 time: 18 minutes (1 unit: 8-22 mins) Gait Training (96529): 1:1 time: 25 minutes (2 units: 23-37 mins) Total time: 43 minutes Radha Yu PT Normal [facility] PROGRESSon 08-05-2019 PROGRESS HNO ID: [id number] Author: Radha (Pt) Gigi Service: ? Author [...] 07/06/19 through 09/05/19 Goals updated on 08/05/2019. [place] in home exercise program. (Met) Patient will [...] surface and 180 deg turns negotiation. Billing: [facility]: Therapeutic Exercise (95843): 1:1 time: 18 minutes (1 unit: 8-22 mins) Gait Training (95178): 1:1 time: 25 minutes (2 units: 23-37 mins) Total time: 43 minutes Radha Yu PT Normal [facility] CNTHERAPYon 07-27-2019 CNTHERAPY OT/PT/Speech Visit (PTWS) ALBIN ISSA ([id number]) 1955 M Date Time Provider Department 07/27/19 8:30 AM RADHA YU (PT) PTWS Date Time Provider Department Center 07/27/2019 8:30 AM [id number] YU (PT) PTWS [facility] Reason for Visit: Physical Therapy [503] Primary Visit Diagnosis:S/P AKA (above knee amputation), right ([facility]) [Z89.611] Other Visit Diagnosis:Liposarcoma of thigh, 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 Billing: [facility]: Therapeutic Exercise (47441): 1:1 time: 25 minutes (2 units: 23-37 mins) Gait Training (03036): 1:1 time: 20 minutes (1 unit: 8-22 mins) Total time: 45 minutes Radha Yu PT Normal [facility] ANTONYon 07-27-2019 PROGRESS HNO ID: [id number] Author: Radha (Pt) Gigi Service: ? Author [...] level surfaces with 2 canes negotiation. Billing: [facility]: Therapeutic Exercise (99899): 1:1 time: 25 minutes (2 units: 23-37 mins) Gait Training (95886): 1:1 time: 20 minutes (1 unit: 8-22 mins) Total time: 45 minutes Radha Yu PT Normal [facility] CNTHERAPYon 07-22-2019 CNTHERAPY OT/PT/Speech Visit (PTWS) ALBIN ISSA ([id number]) 1955 M Date Time Provider Department 07/22/19 1:30 PM RADHA YU (PT) PTWS Date Time Provider Department Center 07/22/2019 1:30 PM [id number] YU (PT) PTWS [facility] Reason for Visit: Physical Therapy [...] session. He has another f/u with the education courses sales representative tomorrow. Pain: Pain Pain Level: 0 Post [...] identified in the objective section above. Billing: [facility]: Therapeutic Exercise (87507): 1:1 time: 25 minutes (2 units: 23-37 mins) Gait Training (04325): 1:1 time: 20 minutes (1 unit: 8-22 mins) Total time: 45 minutes Radha Yu PT Normal [facility] PROGRESSon 07-22-2019 PROGRESS HNO ID: [id number] Author: Radha (Pt) Gigi Service: ? Author [...] session. He has another f/u with the education courses sales representative tomorrow. Pain: Pain Pain Level: 0 Post [...] identified in the objective section above. Billing: [facility]: Therapeutic Exercise (09042): 1:1 time: 25 minutes (2 units: 23-37 mins) Gait Training (12446): 1:1 time: 20 minutes (1 unit: 8-22 mins) Total time: 45 minutes Radha Yu PT Normal [facility] CNTHERAPYon 07-20-2019 CNTHERAPY OT/PT/Speech Visit (PTWS) ALBIN ISSA ([id number]) 1955 M Date Time Provider Department 07/20/19 8:30 AM RADHA YU (PT) PTWS Date Time Provider Department Center 07/20/2019 8:30 AM [id number] YU (PT) PTWS [facility] Reason for Visit: Physical Therapy [...] identified in the objective section above. Billing: [facility]: Therapeutic Exercise (14455): 1:1 time: 25 minutes (2 units: 23-37 mins) Gait Training (79524): 1:1 time: 20 minutes (1 unit: 8-22 mins) Total time: 45 minutes Radha RYAN Yu Normal [facility] PROGRESSon 07-20-2019 PROGRESS HNO ID: [id number] Author: Radha (Pt) Gigi Service: ? Author [...] identified in the objective section above. Billing: [facility]: Therapeutic Exercise (76548): 1:1 time: 25 minutes (2 units: 23-37 mins) Gait Training (10150): 1:1 time: 20 minutes (1 unit: 8-22 mins) Total time: 45 minutes Radha Yu PT Normal [facility] CNTHERAPYon 07-17-2019 CNTHERAPY OT/PT/Speech Visit (PTWS) ALBIN ISSA ([id number]) 1955 M Date Time Provider Department 07/17/19 3:15 PM RADHA YU (PT) PTWS Date Time Provider Department Center 07/17/2019 3:15 PM [id number] YU (PT) PTWS [facility] Reason for Visit: Physical Therapy [...] program was facilitated with verbal cueing. Billing: [facility]: Therapeutic Exercise (47694): 1:1 time: 20 minutes (1 unit: 8-22 mins) Gait Training (39235): 1:1 time: 25 minutes (2 units: 23-37 mins) Total time: 45 minutes Radha Yu PT Normal [facility] PROGRESSon 07-17-2019 PROGRESS HNO ID: [id number] Author: Radha (Pt) Gigi Service: ? Author [...] program was facilitated with verbal cueing. Billing: [facility]: Therapeutic Exercise (89777): 1:1 time: 20 minutes (1 unit: 8-22 mins) Gait Training (59557): 1:1 time: 25 minutes (2 units: 23-37 mins) Total time: 45 minutes Radha Yu PT Normal [facility] CNTHERAPYon 07-13-2019 CNTHERAPY OT/PT/Speech Visit (PTWS) ALBIN ISSA ([id number]) 1955 M Date Time Provider Department 07/13/19 9:30 AM RADHA YU (PT) PTWS Date Time Provider Department Center 07/13/2019 9:30 AM [id number] YU (PT) PTWS [facility] Reason for Visit: Physical Therapy [503] Primary Visit Diagnosis:S/P AKA (above knee amputation), right ([facility]) [Z89.611] Other Visit Diagnosis:Liposarcoma of thigh, 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 [facility] today [facility] Pain: Pain Pain [...] the proper sequence for stair negotiation. Billing: [facility]: Therapeutic Exercise (68148): 1:1 time: 20 minutes (1 unit: 8-22 mins) Gait Training (00448): 1:1 time: 25 minutes (2 units: 23-37 mins) Total time: 45 minutes Radha Yu PT Normal [facility] PROGRESSon 07-13-2019 PROGRESS HNO ID: [id number] Author: Radha (Pt) Gigi Service: ? Author [...] for Visit: Pt states he saw the education courses sales representative and he adjusted his prosthesis and is now fitting very comfortably when weight bearing. He presents today [facility] Pain: Pain Pain [...] the proper sequence for stair negotiation. Billing: [facility]: Therapeutic Exercise (24064): 1:1 time: 20 minutes (1 unit: 8-22 mins) Gait Training (02648): 1:1 time: 25 minutes (2 units: 23-37 mins) Total time: 45 minutes Radha Yu PT Normal [facility] CNTHERAPYon 07-08-2019 CNTHERAPY OT/PT/Speech Visit (PTWS) LUIS MANUELALBIN CARR ([id number]) 1955 M Date Time Provider Department 07/08/19 3:15 PM RADHA YU (PT) PTWS Date Time Provider Department Center 07/08/2019 3:15 PM [id number] YU (PT) PTWS [facility] Reason for Visit: Physical Therapy [503] Primary Visit Diagnosis:S/P AKA (above knee amputation), right ([facility]) [Z89.611] Other Visit Diagnosis:Liposarcoma of thigh, 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 Billing: [facility]: Therapeutic Exercise (55609): 1:1 time: 15 minutes (1 unit: 8-22 mins) Gait Training (58378): 1:1 time: 25 minutes (2 units: 23-37 mins) Total time: 40 minutes Radha Yu PT Normal [facility] PROGRESSon 07-08-2019 PROGRESS HNO ID: [id number] Author: Radha (Pt) Gigi Service: ? Author [...] assess proper use of orthotic device. Billing: [facility]: Therapeutic Exercise (22171): 1:1 time: 15 minutes (1 unit: 8-22 mins) Gait Training (73169): 1:1 time: 25 minutes (2 units: 23-37 mins) Total time: 40 minutes Radha Yu PT Normal [facility] CNTHERAPYon 07-06-2019 CNTHERAPY OT/PT/Speech Visit (PTWS) ALBIN ISSA ([id number]) 1955 M Date Time Provider Department 07/06/19 5:00 PM RADHA YU (PT) PTWS Date Time Provider Department Center 07/06/2019 5:00 PM [id number] YU (PT) PTWS [facility] Reason for Visit: PT Eval [747] Primary Visit Diagnosis:S/P AKA (above knee amputation), right ([facility]) [Z89.611] Other Visit Diagnosis:Liposarcoma of thigh, right [...] of Care: created on 07/06/19 through 09/05/19 [place] in home exercise program. Patient will increase [...] AKA 01/26/19. He has been wearng the poultry dressing worker garment and ambulating independently with front wheeled [...] in weight bearing. He has f/u with [employer] 07/16/19. When not wearing his prosthetic, he is wearing the poultry dressing worker on his stump. He describes a ramp [...] *Pt was advised to continue to wear poultry dressing worker when not using prosthesis. He is to wear the prosthesis no more than 4 hours a day and less than that if wearing consecutive days. he is to discontinue use of prosthesis if develops any pressure points, skin redness or painful irritation on R LE. Pt was also enocuraged to keep his education courses sales representative notified of any skin irritations, rubbing or [...] orthotic device; R LE AKA prosthesis. Billing: [facility]: Evaluation - Low Complexity (63510) Gait Training (43972): 1:1 time: 20 minutes (1 unit: 8-22 mins) Total time: 45 minutes Radha Yu PT Previous Version Radha Yu PT 07/06/2019 7:12 PM Signed Addended by: RADHA YU PT on: 07/06/2019 07:12 PM Modules accepted: Orders Letter Text Normal [facility] PROGRESSon 07-06-2019 PROGRESS HNO ID: [id number] Author: Radha (Pt) Gigi Service: ? Author [...] of Care: created on 07/06/19 through 09/05/19 [place] in home exercise program. Patient will increase [...] AKA 01/26/19. He has been wearng the poultry dressing worker garment and ambulating independently with front wheeled [...] in weight bearing. He has f/u with [employer] 07/16/19. When not wearing his prosthetic, he is wearing the poultry dressing worker on his stump. He describes a ramp [...] *Pt was advised to continue to wear poultry dressing worker when not using prosthesis. He is to wear the prosthesis no more than 4 hours a day and less than that if wearing consecutive days. he is to discontinue use of prosthesis if develops any pressure points, skin redness or painful irritation on R LE. Pt was also enocuraged to keep his education courses sales representative notified of any skin irritations, rubbing or [...] orthotic device; R LE AKA prosthesis. Billing: [facility]: Evaluation - Low Complexity (36798) Gait Training (46088): 1:1 time: 20 minutes (1 unit: 8-22 mins) Total time: 45 minutes Radha Yu PT Normal [facility] Office Visit: evaluation les ions right leg - surgery 05/28/17on 07-03-2017 Alcoholism counseling (procedure) no Invalid Interpretation Code [facility] Work Phone: Dietary management education, guidance, and counseling (procedure) yes Invalid Interpretation Code [facility] Work Phone: [phone] Documentation of current medications (procedure) Done Invalid Interpretation Code [facility] Work Phone: [phone] Fall risk assessment No Invalid Interpretation Code [facility] Work Phone: [phone] Tobacco smoking status Current Invalid Interpretation Code [facility] Work Phone: [phone] Tobacco use status [facility] Former smoker Invalid Interpretation Code [facility] Work Phone: [phone] Office Visit: gallstones and abdominal painon 06-19-2017 Tobacco smoking status Current Invalid Interpretation Code [facility] Work Phone: Tobacco use status [facility] Former smoker Invalid Interpretation Code [facility] Work Phone: Office Visit: evaluation les ions right legon 05-15-2017 Tobacco smoking status Current Invalid Interpretation Code [facility] Work Phone: Tobacco use status [facility] Former smoker Invalid Interpretation Code [facility] Work Phone: Office Visiton 12-14-2016 Tobacco smoking status Current Invalid Interpretation Code [facility] Work Phone: Tobacco use status [facility] Former smoker Invalid Interpretation Code [facility] Work Phone: Clinical Lists Update: 10-29-2016 Cholesterol [Mass/Vol] 123 mg/dL Invalid Interpretation Code [facility] Work Phone: Cholesterol in HDL [Mass/Vol] 40 mg/dL Invalid Interpretation Code [facility] Work Phone: Cholesterol in LDL [Mass/Vol] 57 mg/dL Invalid Interpretation Code [facility] Work Phone: Triglyceride [Mass/Vol] 132 mg/dL Invalid Interpretation Code [facility] Work Phone: Clinical Lists Update: 05-28-2016 Left ventricular Ejection fraction 35 % Invalid Interpretation Code [facility] Work Phone: Lab Report: CBC W/Diff, Auto matedon 01-17-2016 Absolute Neut 3.0 X10 3/UL Invalid Interpretation Code 2.0-7.7 [facility] Work Phone: Basophils/100 WBC (Bld) 0.6 % Invalid Interpretation Code 0-1 [facility] Work Phone: Basophils/100 WBC Auto [...] (RBC) 13.4 % Invalid Interpretation Code 11.6-14.6 [facility] Work Phone: Erythrocytes (RBC) 4.01 10*6/uL Low 4.6-6.[address] [facility] Work Phone: Hematocrit (Bld) [Volume fraction] 37.0 % Low 40-54 [facility] Work Phone: Hematocrit (HCT) 37.0 % Low 40-54 [facility] Work Phone: Hemoglobin (Bld) [Mass/Vol] 12.3 g/dL Low 13.0-16.5 [facility] Work Phone: Immature granulocytes/100 WBC (Bld) 0.800 % Invalid Interpretation Code 0.0-0.9 [facility] Work Phone: Lymphocytes 2.57 X10 3/UL Invalid Interpretation Code 0.83-4.51 [facility] Work Phone: Lymphocytes (Bld) [#/Vol] 2.57 X10 3/UL Invalid Interpretation Code 0.83-4.51 [facility] Work Phone: Lymphocytes/100 leukocytes 41.1 % High 19-41 [facility] Work Phone: [phone] Lymphocytes/100 WBC (Bld) 41.1 % High 19-41 [facility] Work Phone: MCH 30.7 pg Invalid Interpretation Code 27.0-32.0 [facility] Work Phone: [phone] MCH (RBC) [Entitic mass] 30.7 pg Invalid Interpretation Code 27.0-32.0 [facility] Work Phone: MCHC mass conc (RBC) 33.2 G/GL Invalid Interpretation Code 32-36 [facility] Work Phone: MCV 92.3 fL Invalid Interpretation Code 80-94 [facility] Work Phone: [phone] MCV (RBC) [Entitic vol] 92.3 fL Invalid Interpretation Code 80-94 [facility] Work Phone: mean corpuscular hemoglobin concentration, RBC 33.2 G/GL Invalid Interpretation Code 32-36 [facility] Work Phone: Monocytes/100 leukocytes 9.0 % Invalid Interpretation Code 0-10 [facility] Work Phone: [phone] Monocytes/100 WBC (Bld) 9.0 % Invalid Interpretation Code 0-10 [facility] Work Phone: neutrophil count, blood 3.0 X10 3/UL Invalid Interpretation Code 2.0-7.7 [facility] Work Phone: Neutrophils/100 WBC (Bld) 47.7 % Invalid Interpretation Code 47-70 [facility] Work Phone: Neutrophils/100 WBC Auto (Bld) 47.7 % Invalid Interpretation Code 47-70 [facility] Work Phone: Platelet mean volume (Bld) [Entitic vol] 9.1 fL Invalid Interpretation Code 6.2-12.0 [facility] Work Phone: Platelets 358 10*3/mm3 Invalid Interpretation Code 150-450 [facility] Work Phone: Platelets (Bld) [#/Vol] 358 10*3/uL Invalid Interpretation Code 150-450 [facility] Work Phone: [phone] PMV by Veronica 9.1 fL Invalid Interpretation Code 6.2-12.0 [facility] Work Phone: [phone] RBC (Bld) [#/Vol] 4.01 10*6/uL Low 4.6-6.2 [facility] Work Phone: [phone] RDW SD 43.9 fL Invalid Interpretation Code 35.1-43.9 [facility] Work Phone: [phone] red blood cell distribution width, size density 43.9 fL Invalid Interpretation Code 35.1-43.9 [facility] Work Phone: [phone] WBC (Bld) [#/Vol] 6.3 10*3/uL Invalid Interpretation Code 4.4-11.0 [facility] Work Phone: [phone] WBC (Leukocytes) 6.3 10*3/uL Invalid Interpretation Code 4.4-11.0 [facility] Work Phone: [phone] Office Visit: s/p severe R l eg streptoccal cellulitis, sepsis and ALICJA; get CBCon 01-11-2016 Smoking cessation education (procedure) yes Invalid Interpretation Code [facility] Work Phone: [phone] Lab Report: Myoglobin, Urine on 01-09-2016 Myoglobin (U) [Mass/Vol] < 2 ng/mL Invalid Interpretation Code 0-13 [facility] Work Phone: [phone] Lab Report: Basic Metabolic Profile (BMP)on 01-07-2016 Anion gap 8 mmol/L Invalid Interpretation Code 5-15 [facility] Work Phone: [phone] Anion gap [Moles/Vol] 8 mmol/L Invalid Interpretation Code 5-15 [facility] Work Phone: [phone] BUN/Creatinine Ratio 13.7 RATIO Invalid Interpretation Code 10-20 [facility] Work Phone: [phone] Calcium [Mass/Vol] 8.3 mg/dL Low 8.5-10.1 [facility] Work Phone: calculated corrected value of creatinine clearance with body surface area 71.51 mL/min Invalid Interpretation Code [facility] Work Phone: [phone] Chloride [Moles/Vol] 110 mmol/L High 98-[address] [facility] [address] [facility] Work Phone: [phone] CO2 25.0 mmol/L Invalid Interpretation Code 21.0-32.0 [facility] Work Phone: [phone] CO2 (BldV) [Partial pressure] 25.0 mmol/L Invalid Interpretation Code 21.0-32.0 [facility] Work Phone: [phone] Creatinine 71.51 mL/min Invalid Interpretation Code [facility] Work Phone: [phone] Creatinine [Mass/Vol] 1.17 mg/dL Invalid Interpretation Code 0.70-1.30 [facility] Work Phone: [phone] eGFR (non-black) 82 mL/min/{1.73_m2} Invalid Interpretation Code >60 [facility] Work Phone: [phone] GFR/1.73 sq M.predicted among non-blacks MDRD (S/P/Bld) [Vol rate/Area] 67 mL/min/{1.73_m2} Invalid Interpretation Code >60 [facility] Work Phone: [phone] Glomerular Filtration rate 82 mL/min Invalid Interpretation Code >60 [facility] Work Phone: [phone] Glucose [Mass/Vol] 98 mg/dL Invalid Interpretation Code 70-110 [facility] Work Phone: [phone] Potassium [Moles/Vol] 4.1 mmol/L Invalid Interpretation Code 3.5-5.1 [facility] Work Phone: [phone] Sodium [Moles/Vol] 143 mmol/L Invalid Interpretation Code 136-145 [facility] Work Phone: [phone] Urea nitrogen [Mass/Vol] 16 mg/dL Invalid Interpretation Code 7-18 [facility] Work Phone: [phone] Urea nitrogen/Creatinine [Mass ratio] 13.1277681 mg/mg Invalid Interpretation Code 10-20 [facility] [...] COUNTED 100 Invalid Interpretation Code MANUAL DIFF [facility] Work Phone: Metamyelocytes/100 leukocytes 4 % High 0-1 [facility] Work Phone: Metamyelocytes/100 WBC (Bld) 4 % High 0-1 [facility] Work Phone: Myelocytes (Bld) [#/Vol] 1 (?) High 0-0 [facility] Work Phone: Segmented Neutrophils/100 leukocytes 85 % High 47-70 [facility] Work Phone: Segmented neutrophils/100 WBC (Bld) 85 % High 47-70 [facility] Work Phone: total cells counted, blood 100 Invalid Interpretation Code MANUAL DIFF [facility] Work Phone: TOXIC GRAN 1+ Invalid Interpretation Code [facility] Work Phone: toxic granulation, blood 1+ Invalid Interpretation Code [facility] Work Phone: Lab Report: CBC W/Diff, Auto matedon 01-06-2016 Band form neutrophils (Bld) [#/Vol] 4 % Invalid Interpretation Code 0-5 [facility] Work Phone: Blasts/100 WBC (Bld) 1 % Critically high 0-0 [facility] Work Phone: Eosinophils/100 leukocytes 2 % Invalid Interpretation Code 0-5 [facility] Work Phone: Eosinophils/100 WBC (Bld) 2 % Invalid Interpretation Code 0-5 [facility] Work Phone: Hypochromia presence 1+ Invalid Interpretation Code [facility] Work Phone: [phone] Hypochromia Ql (Bld) 1+ Invalid Interpretation Code [facility] Work Phone: [phone] Platelets LM Ql (Bld) ADEQUATE Invalid Interpretation Code ADEQ [facility] Work Phone: Promyelocytes (Bld) [#/Vol] 1 (?) High 0-0 [facility] Work Phone: Replaced Document: CBC W/Dif f, Automatedon 01-05-2016 GE use only - for [employer] import when terms are not otherwise specified 5 % Invalid Interpretation Code [facility] Work Phone: PLASMA CELL 5 % Invalid Interpretation Code [facility] Work Phone: [phone] RBC morphology finding Nom (Bld) NORM C+C Invalid Interpretation Code NORM C AND C [facility] Work Phone: Lab Report: CPK Total, Creat ine Kinaseon 01-04-2016 CK [Catalytic activity/Vol] 61 U/L Invalid Interpretation Code 39-308 [facility] Work Phone: Lab Report: Prealbuminon Prealbumin 4.8 mg/dL Low 20.0-40.0 [facility] Work Phone: [phone] Prealbumin Elph [Mass/Vol] 4.8 mg/dL Low 20.0-40.0 [facility] Work Phone: Lab Report: (P) Urinalysis, Completeon 01-03-2016 Albumin Ql (U) 30 High Negative [facility] Work Phone: [phone] Bilirubin Ql (U) 1 High Negative [facility] Work Phone: Clarity (U) Clear Invalid Interpretation Code Clear [facility] Work Phone: Color (U) Yellow Invalid Interpretation Code Yellow [facility] Work Phone: Glucose Ql (U) Normal mg/dl Invalid Interpretation Code Normal [facility] Work Phone: [phone] Ketones (U) [Mass/Vol] Negative Invalid Interpretation Code Negative [facility] Work Phone: [phone] Leukocyte esterase Test strip Ql (U) 25 High Negative [facility] Work Phone: [phone] NITRITE UR Negative Invalid Interpretation Code Negative [facility] Work Phone: [phone] Occult Blood, urine 10 High Negative [facility] Work Phone: [phone] OCCULT BLOOD-UR 10 High Negative [facility] Work Phone: [phone] pH (U) 5.0 [pH] Invalid Interpretation Code 5.0 - 8.0 [facility] Work Phone: [phone] Specific gravity Refractometry (U) [Rel density] 1.015 Invalid Interpretation Code 1.002-1.030 [facility] Work Phone: [phone] Urine, ketones presence Negative Invalid Interpretation Code Negative [facility] Work Phone: [phone] Urine, pH 5.0 [pH] Invalid Interpretation Code 5.0 - 8.0 [facility] Work Phone: [phone] Urine, protein 30 mg/dL High Negative [facility] Work Phone: [phone] UROBILI 8 mg/dL High Normal [facility] Work Phone: [phone] Lab Report: Creatinine, Urin e (random)on 01-03-2016 Creatinine (U) [Mass/Vol] 164.00 mg/dL Invalid Interpretation Code NO RANGE EST. [facility] Work Phone: Lab Report: Urinalysis, Comp leteon 01-03-2016 AMORPHOUS 2+ Invalid Interpretation Code [facility] Work Phone: [phone] Bacteria LM.HPF (Urine sed) [#/Area] 0 /[HPF] Invalid Interpretation Code None Seen [facility] Work Phone: Epithelial cells LM.HPF (Urine sed) [#/Area] 0-5 SEEN Invalid Interpretation Code 0-5 [facility] Work Phone: Mucus Ql (Urine sed) 0 SEEN Invalid Interpretation Code [facility] Work Phone: [phone] RBC LM.HPF (Urine sed) [#/Vol] 0 SEEN Invalid Interpretation Code 0-5 [facility] Work Phone: [phone] Urinalysis, white blood cells, culture and sensitivity 5-10 SEEN Invalid Interpretation Code 0-5 [facility] Work Phone: [phone] Urine, mucus presence in sediment 0 SEEN Invalid Interpretation Code [facility] Work Phone: [phone] WBC (Leukocytes) 5-10 SEEN Invalid Interpretation Code 0-5 [facility] Work Phone: [phone] Lab Report: Urine Sodiumon 0 01-03-2016 Sodium (U) [Moles/Vol] mmol/L Invalid Interpretation Code Not Establ. [facility] Work Phone: [phone] Urine, sodium mmol/L Invalid Interpretation Code Not Establ. [facility] Work Phone: [phone] Lab Report: CBC W/Diff, Auto matedon 08-17-2015 Absolute Lymphocytes 1.42 X10 3/UL Invalid Interpretation Code 0.83-4.51 [facility] Work Phone: [phone] Absolute Neut 3.4 X10 3/UL Invalid Interpretation Code 2.0-7.7 [facility] Work Phone: [phone] Absolute Neutrophil count 3.4 X10 3/UL Invalid Interpretation Code 2.0-7.7 [facility] Work Phone: [phone] Lymphocytes 1.42 X10 3/UL Invalid Interpretation Code 0.83-4.51 [facility] Work Phone: [phone] Lab Report: BNP,B-Type NATRI URETIC PEPTIDEon 03-25-2015 Natriuretic peptide B (Bld) [Mass/Vol] 28.1 pg/mL Invalid Interpretation Code 0-100 [facility] Work Phone: [phone] Lab Report: Magnesiumon 02- Magnesium [Mass/Vol] 2.1 mg/dL Invalid Interpretation Code 1.8-2.4 [facility] Work Phone: [phone] Lab Report: Thyroid Stim Hor froy (TSH)on 01-10-2015 Thyroid stimulating hormone (TSH) 1.49 u[iU]/mL Invalid Interpretation Code 0.358-3.74 [facility] Work Phone: TSH Qn 1.49 m[IU]/L Invalid Interpretation Code 0.358-3.74 [facility] Work Phone: Office Visit: [facility] 01-10-20 15 cardiac risk group C Invalid Interpretation Code [facility] Work Phone: General cardiovascular disease 10Y risk [#] [place] N/A Invalid Interpretation Code [facility] Work Phone: Replaced Document: Margy Campoverde 07-16-2014 EKG QRS axis -39 deg Invalid Interpretation Code [facility] Work Phone: electrocardiogram interpretation Sinus Rhythm -Left axis -anterior fascicular block. -Anteroseptal infarct -age undetermined. ABNORMAL Invalid Interpretation Code [facility] Work Phone: [phone] Heart rate 63 /min Invalid Interpretation Code [facility] Work Phone: [phone] Interpretation Sinus Rhythm -Left axis -anterior fascicular block. -Anteroseptal infarct -age undetermined. ABNORMAL Invalid Interpretation Code [facility] Work Phone: P [place] 59 deg Invalid Interpretation Code [facility] Work Phone: P wave axis, electrocardiogram 59 deg Invalid Interpretation Code [facility] Work Phone: IN Interval 146 ms Invalid Interpretation Code [facility] Work Phone: IN interval, electrocardiogram 146 ms Invalid Interpretation Code [facility] Work Phone: QRS axis, electrocardiogram -39 deg Invalid Interpretation Code [facility] Work Phone: QRS Duration 96 ms Invalid Interpretation Code [facility] Work Phone: QRS duration, electrocardiogram 96 ms Invalid Interpretation Code [facility] Work Phone: QT Interval new path ms Invalid Interpretation Code [facility] Work Phone: QT interval, electrocardiogram new path ms Invalid Interpretation Code [facility] Work Phone: T [place] 42 deg Invalid Interpretation Code [facility] Work Phone: [phone] T wave axis, electrocardiogram 42 deg Invalid [...] Alkaline phosphatase (ALP) 97 U/L Normal 50-136 [facility] Work Phone: [phone] ALP (Bld) [Catalytic activity/Vol] 97 U/L Normal 50-136 [facility] Work Phone: ALT [Catalytic activity/Vol] 26 U/L Normal 12-78 [facility] Work Phone: [phone] AST [Catalytic activity/Vol] 17 U/L Normal 15-37 [facility] Work Phone: [phone] Bilirubin [Mass/Vol] 0.60 mg/dL Normal 0.00-1.[address] [facility] Work Phone: [phone] Bilirubin.direct [Mass/Vol] 0.12 mg/dL Normal 0.00-0.30 [facility] Work Phone: [phone] Replaced Document: Margy Dejesus CG Observationson 04-20-2013 Pulse (Heart Rate) 380 ms Invalid Interpretation Code [facility] Work Phone: [phone] QT interval/QT interval (corrected for heart rate), electrocardiogram 380 ms Invalid Interpretation Code [facility] Work Phone: Lab Report: PTon 08-11-2010 INR Coag (PPP) [Relative time] 1.0 {INR} Normal [facility] Work Phone: prothrombin time, actual/normal, ratio 10.8 SECONDS Normal 9.1-11.7 [facility] Work Phone: Vital Signs Date Time Vital Sign Value Performing Clinician Facility 07-19-2025 15:14-0400 Diastolic blood pressure 42 mm[Hg] Dr. Speedy Boswell MD Work Phone: [facility] 07-19-2025 15:14-0400 Systolic blood pressure 68 mm[Hg] Dr. Speedy Boswell MD Work Phone: [phone] [address] 07-19-2025 14:59-0400 Body height 170.[address] Speedy Boswell MD Work Phone: [phone] [address] 07-19-2025 14:59-0400 Body mass index (BMI) [Ratio] 46 kg/m2 Dr. Speedy Boswell MD Work Phone: [facility] 07-19-2025 14:59-0400 Body weight 133.[address] Speedy Boswell MD Work Phone: [phone] [place] [address] 07-19-2025 14:59-0400 Heart rate 53 /min Dr. Speedy Boswell MD Work Phone: [facility] 07-19-2025 14:59-0400 Respiratory rate 18 /min Dr. Speedy Boswell MD Work Phone: [facility] 05-09-2025 02:53-0400 Body temperature 98.2 [degF] Dr. Speedy Boswell MD Work Phone: [facility] 05-09-2025 02:53-0400 Diastolic blood pressure 82 mm[Hg] Dr. Speedy Boswell MD Work Phone: [facility] 05-09-2025 02:53-0400 Heart rate 57 /min Dr. Speedy Boswell MD Work Phone: [facility] 05-09-2025 02:53-0400 Respiratory rate 16 /min Dr. Speedy Boswell MD Work Phone: [phone] [place] [address] 05-09-2025 02:53-0400 SaO2% (BldA) [Mass fraction] 97 % Dr. Speedy Boswell MD Work Phone: [phone] [place] [address] 05-09-2025 02:53-0400 Systolic blood pressure 104 mm[Hg] Dr. Speedy Boswell MD Work Phone: [phone] [place] [address] 05-09-2025 00:02-0400 Body height 170.[address] Speedy Boswell MD Work Phone: [phone] [place] [address] 05-09-2025 00:02-0400 Body mass index (BMI) [Ratio] 48 kg/m2 Dr. Speedy Boswell MD Work Phone: [phone])359-137796 [place] [address] 05-09-2025 00:02-0400 Body weight 139.[address] Speedy Boswell MD Work Phone: [phone])[phone] [place] [address] 05-03-2025 11:28-0400 Body height 170.[address] Speedy Boswell MD Work Phone: [phone] [place] [address] 05-03-2025 11:28-0400 Body mass index (BMI) [Ratio] 46 kg/m2 Dr. Speedy Boswell MD Work Phone: [phone])305-574896 [place] [address] 05-03-2025 11:28-0400 Body weight 133.[address] Speedy Boswell MD Work Phone: [phone] [place] [address] 05-03-2025 11:28-0400 Diastolic blood pressure 57 mm[Hg] Dr. Speedy Boswell MD Work Phone: [phone] [place] [address] 05-03-2025 11:28-0400 Heart rate 57 /min Dr. Speedy Boswell MD Work Phone: [phone] [place] [address] 05-03-2025 11:28-0400 Respiratory rate 18 /min Dr. Speedy Boswell MD Work Phone: [phone] [place] [address] 05-03-2025 11:28-0400 Systolic blood pressure 101 mm[Hg] Dr. Speedy Boswell MD Work Phone: [facility] 03-30-2024 14:12-0400 Body height 180.3 cm Kel Nielsen MD Work Phone: [facility] 03-30-2024 14:12-0400 Body mass index (BMI) [Ratio] 38.77 kg/m2 Kel Nielsen MD Work Phone: [facility] 03-30-2024 14:12-0400 Body weight 126.1 kg Kel Nielsen MD Work Phone: [facility] 01-07-2024 06:15-0500 Body temperature 97.11 [degF] David Ramirez MD Work Phone: [facility] 01-07-2024 06:15-0500 Diastolic blood pressure 63 mm[Hg] David Ramirez MD Work Phone: [facility] 01-07-2024 06:15-0500 Heart rate 70 /min David Ramirez MD Work Phone: [facility] 01-07-2024 06:15-0500 Respiratory rate 18 /min David Ramirez MD Work Phone: [facility] 01-07-2024 06:15-0500 SaO2% (BldA) [Mass fraction] 93 % David Ramirez MD Work Phone: [facility] 01-07-2024 06:15-0500 Systolic blood pressure 109 mm[Hg] David Ramirez MD Work Phone: [facility] 01-06-2024 07:48-0500 Body height 170.2 cm David Ramirez MD Work Phone: [facility] 01-06-2024 07:48-0500 Body mass index (BMI) [Ratio] 46.05 kg/m2 David Ramirez MD Work Phone: [facility] 01-06-2024 07:48-0500 Body weight 133.36 kg David Ramirez MD Work Phone: [facility] 10-30-2023 15:12-0500 Body height 172.[address] Speedy Boswell Work Phone: [facility] 10-30-2023 15:12-0500 Body mass index (BMI) [Ratio] 44.6 kg/m2 Dr. Speedy Boswell Work Phone: [facility] 10-30-2023 15:12-0500 Body weight 133.[address] Speedy Boswell Work Phone: [facility] 10-30-2023 15:12-0500 Diastolic blood pressure 70 mm[Hg] Dr. Speedy Boswell Work Phone: [facility] 10-30-2023 15:12-0500 Heart rate 60 /min Dr. Speedy Boswell Work Phone: [facility] 10-30-2023 15:12-0500 Respiratory rate 18 /min Dr. Speedy Boswell Work Phone: [facility] 10-30-2023 15:12-0500 Systolic blood pressure 111 mm[Hg] Dr. Speedy Boswell Work Phone: [facility] 09-10-2023 14:36-0400 Body height 172.[address] Speedy Boswell Work Phone: [facility] 09-10-2023 14:36-0400 Diastolic blood pressure 75 mm[Hg] Dr. Speedy Boswell Work Phone: [facility] 09-10-2023 14:36-0400 Heart rate 60 /min Dr. Speedy Boswell Work Phone: [facility] 09-10-2023 14:36-0400 Respiratory rate 20 /min Dr. Speedy Boswell Work Phone: [facility] 09-10-2023 14:36-0400 Systolic blood pressure 116 mm[Hg] Dr. Speedy Boswell Work Phone: [facility] 08-26-2023 15:31-0400 Body height 180.3 cm Kel Nielsen MD Work Phone: [facility] 08-26-2023 15:31-0400 Body mass index (BMI) [Ratio] 38.77 kg/m2 Kel Nielsen MD Work Phone: [facility] 08-26-2023 15:31-0400 Body weight 126.1 kg Kel Nielsen MD Work Phone: [facility] 02-11-2023 15:35-0400 Body height 180.3 cm Kel Nielsen MD Work Phone: [facility] 02-11-2023 15:35-0400 Body mass index (BMI) [Ratio] 38.77 kg/m2 Kel Nielsen MD Work Phone: [facility] 02-11-2023 15:35-0400 Body weight 126.1 kg Kel Nielsen MD Work Phone: [facility] 02-11-2023 15:35-0400 Diastolic blood pressure 73 mm[Hg] Kel Nielsen MD Work Phone: [facility] 02-11-2023 15:35-0400 Systolic blood pressure 116 mm[Hg] Kel Nielsen MD Work Phone: [facility] 10-27-2022 20:07-0500 Diastolic blood pressure 74 mm[Hg] Dr. Speedy Boswell Work Phone: [facility] 10-27-2022 20:07-0500 Heart rate 76 /min Dr. Speedy Boswell Work Phone: [facility] 10-27-2022 20:07-0500 Respiratory rate 19 /min Dr. Speedy Boswell Work Phone: [facility] 10-27-2022 20:07-0500 SaO2% (BldA) [Mass fraction] 95 % Dr. Speedy Boswell Work Phone: [facility] 10-27-2022 20:07-0500 Systolic blood pressure 110 mm[Hg] Dr. Speedy Boswell Work Phone: [facility] 10-27-2022 16:09-0500 Body height 172.[address] Speedy Boswell Work Phone: [facility] 10-27-2022 16:09-0500 Body mass index (BMI) [Ratio] 43.2 kg/m2 Dr. Speedy Boswell Work Phone: [facility] 10-27-2022 16:09-0500 Body temperature 98.1 [degF] Dr. Speedy Boswell Work Phone: [facility] 10-27-2022 16:09-0500 Body weight 128.[address] Speedy Boswell Work Phone: [facility] 08-20-2022 13:26-0400 Body height 180.[address] Speedy Boswell Work Phone: [facility] Work Phone: 08-20-2022 13:26-0400 Body mass index (BMI) [Ratio] 39.6 kg/m2 Dr. Speedy Boswell Work Phone: [facility] Work Phone: 08-20-2022 13:26-0400 Body weight 128.[address] Speedy Boswell Work Phone: [facility] Work Phone: 08-20-2022 13:26-0400 Diastolic blood pressure 55 mm[Hg] Dr. Speedy Boswell Work Phone: [facility] Work Phone: 08-20-2022 13:26-0400 Heart rate 60 /min Dr. Speedy Boswell Work Phone: [facility] Work Phone: 08-20-2022 13:26-0400 Respiratory rate 18 /min Dr. Speedy Boswell Work Phone: [facility] Work Phone: 08-20-2022 13:26-0400 Systolic blood pressure 111 mm[Hg] Dr. Speedy Boswell Work Phone: [facility] Work Phone: 08-09-2022 14:24-0400 Body mass index (BMI) [Ratio] 39.6 kg/m2 Dr. Speedy Boswell Work Phone: [facility] Work Phone: 08-09-2022 14:24-0400 Body weight 128.[address] Speedy Boswell Work Phone: [facility] Work Phone: 02-05-2022 11:38-0500 Body height 180.[address] Speedy Boswell Work Phone: [facility] Work Phone: 02-05-2022 11:38-0500 Body weight 135.[address] Speedy Boswell Work Phone: [facility] Work Phone: 02-05-2022 11:38-0500 Diastolic blood pressure 73 mm[Hg] Dr. Speedy Boswell Work Phone: [facility] Work Phone: 02-05-2022 11:38-0500 Heart rate 66 /min Dr. Speedy Boswell Work Phone: [facility] Work Phone: 02-05-2022 11:38-0500 Respiratory rate 18 /min Dr. Speedy Boswell Work Phone: [facility] Work Phone: 02-05-2022 11:38-0500 SaO2% (BldA) [Mass fraction] 97 % Dr. Speedy Boswell Work Phone: [facility] Work Phone: 02-05-2022 11:38-0500 Systolic blood pressure 125 mm[Hg] Dr. Speedy Boswell Work Phone: [facility] Work Phone: 02-05-2022 10:38-0500 Body height 180.[address] Speedy Boswell Work Phone: [facility] Work Phone: 02-05-2022 10:38-0500 Body weight 135.[address] Speedy Boswell Work Phone: [facility] Work Phone: 02-05-2022 10:38-0500 Diastolic blood pressure 73 mm[Hg] Dr. Speedy Boswell Work Phone: [facility] Work Phone: 02-05-2022 10:38-0500 Heart rate 66 /min Dr. Speedy Boswell Work Phone: [facility] Work Phone: 02-05-2022 10:38-0500 Respiratory rate 18 /min Dr. Speedy Boswell Work Phone: [facility] Work Phone: 02-05-2022 10:38-0500 SaO2% (BldA) [Mass fraction] 97 % Dr. Speedy Boswell Work Phone: [facility] Work Phone: 02-05-2022 10:38-0500 Systolic blood pressure 125 mm[Hg] Dr. Speedy Boswell Work Phone: [facility] Work Phone: 01-15-2022 23:03-0500 Diastolic blood pressure 62 mm[Hg] Dr. Speedy Boswell Work Phone: [facility] Work Phone: 01-15-2022 23:03-0500 Systolic blood pressure 118 mm[Hg] Dr. Speedy Boswell Work Phone: [facility] Work Phone: 01-15-2022 19:47-0500 Body mass index (BMI) [Ratio] 41 kg/m2 Dr. Speedy Boswell Work Phone: [facility] Work Phone: 01-15-2022 19:47-0500 Body temperature 98 [degF] Dr. Speedy Boswell Work Phone: [facility] Work Phone: 01-15-2022 19:47-0500 Body weight 133.[address] Speedy Boswell Work Phone: [facility] Work Phone: 01-15-2022 19:47-0500 Heart rate 71 /min Dr. Speedy Boswell Work Phone: [facility] Work Phone: 01-15-2022 19:47-0500 Respiratory rate 15 /min Dr. Speedy Boswell Work Phone: [facility] Work Phone: 01-15-2022 19:47-0500 SaO2% (BldA) [Mass fraction] 99 % Dr. Speedy Boswell Work Phone: [facility] Work Phone: 06-01-2021 00:25-0400 Body temperature 97.81 [degF] Roni Figueroa MD Work Phone: [facility] Work Phone: 06-01-2021 00:25-0400 Diastolic blood pressure 93 mm[Hg] Roni Figueroa MD Work Phone: [facility] Work Phone: 06-01-2021 00:25-0400 Heart rate 82 /min Roni Figueroa MD Work Phone: [facility] Work Phone: 06-01-2021 00:25-0400 Respiratory rate 17 /min Roni Figueroa MD Work Phone: [facility] Work Phone: 06-01-2021 00:25-0400 SaO2% (BldA) [Mass fraction] 98 % Roni Figueroa MD Work Phone: [facility] Work Phone: 06-01-2021 00:25-0400 Systolic blood pressure 155 mm[Hg] Roni Figueroa MD Work Phone: [facility] Work Phone: 05-24-2021 00:05-0400 Body height 180.3 cm Roni Figueroa MD Work Phone: [facility] Work Phone: 05-24-2021 00:05-0400 Body mass index (BMI) [Ratio] 38.77 kg/m2 Roni Figueroa MD Work Phone: [facility] Work Phone: 05-24-2021 00:05-0400 Body weight 126.1 kg Roni Figueroa MD Work Phone: [facility] Work Phone: 03-22-2021 14:14-0400 Body mass index (BMI) [Ratio] 41 kg/m2 Dr. Speedy Boswell Work Phone: [facility] Work Phone: 03-22-2021 14:14-0400 Body mass index (BMI) [Ratio] 41 kg/m2 Dr. Speedy Boswell Work Phone: [facility] Work Phone: 07-03-2017 08:47-0400 Body height 181.61 cm Lowell Otero MD [facility] Work Phone: 07-03-2017 08:47-0400 Body mass index (BMI) [Ratio] 44.75 kg/m2 Lowell Otero MD [facility] Work Phone: 07-03-2017 08:47-0400 Body surface area Derived from formula 2.61 m2 Lowell Otero MD [facility] Work Phone: 07-03-2017 08:47-0400 Body temperature 96.9 [degF] Lowell Otero MD [facility] Work Phone: 07-03-2017 08:47-0400 Body weight 147.6 kg Lowell Otero MD [facility] Work Phone: 07-03-2017 08:47-0400 Diastolic blood pressure 81 mm[Hg] Lowell Otero MD [facility] Work Phone: 07-03-2017 08:47-0400 Heart rate 64 /min Lowell Otero MD [facility] Work Phone: 07-03-2017 08:47-0400 Respiratory rate 18 /min Lowell Otero MD [facility] Work Phone: 07-03-2017 08:47-0400 Systolic blood pressure 129 mm[Hg] Lowell Otero MD [facility] Work Phone: 07-03-2017 08:47-0400 Weight 147.6 kg Peg Deng RN [facility] Work Phone: 06-19-2017 10:56-0400 Body height 181.61 cm Cary George MD Work Phone: [facility] Work Phone: 06-19-2017 10:56-0400 Body mass index (BMI) [Ratio] 44 kg/m2 Cary George MD Work Phone: [facility] Work Phone: 06-19-2017 10:56-0400 Body temperature 97.2 [degF] Cary George MD Work Phone: [facility] Work Phone: 06-19-2017 10:56-0400 Body weight 145.15 kg Cary George MD Work Phone: [facility] Work Phone: 06-19-2017 10:56-0400 Diastolic blood pressure 76 mm[Hg] Cary George MD Work Phone: [facility] Work Phone: 06-19-2017 10:56-0400 Heart rate 75 /min Cary George MD Work Phone: [facility] Work Phone: 06-19-2017 10:56-0400 Respiratory rate 18 /min Cary George MD Work Phone: [facility] Work Phone: 06-19-2017 10:56-0400 Systolic blood pressure 106 mm[Hg] Cary George MD Work Phone: [facility] Work Phone: 06-14-2017 [...] (BMI) [Ratio] 43.98 kg/m2 Rizwana Johnson LPN [facility] Work Phone: 05-23-2017 12:15-0400 Body temperature 97.8 [degF] Rizwana Johnson LPN [facility] Work Phone: 05-23-2017 12:15-0400 Body weight 145.06 kg Rizwana Johnson LPN [facility] Work Phone: 05-23-2017 12:15-0400 Diastolic blood pressure 56 mm[Hg] Rizwana Johnson LPN [facility] Work Phone: 05-23-2017 12:15-0400 Heart rate 69 /min Rizwana Johnson LPN [facility] Work Phone: 05-23-2017 12:15-0400 Respiratory rate 20 /min Rizwana Johnson LPN [facility] Work Phone: 05-23-2017 12:15-0400 SaO2% (BldA) [Mass fraction] 98 % Rizwana Johnson LPN [facility] Work Phone: 05-23-2017 12:15-0400 Systolic blood pressure 113 mm[Hg] Rizwana Johnson LPN [facility] Work Phone: 05-15-2017 10:40-0400 Body surface area Derived from formula 2.61 m2 Rizwana Johnson LPN [facility] Work Phone: 05-01-2017 09:51-0400 Body mass index (BMI) [Ratio] 44.86 kg/m2 Arlene Signs [facility] Work Phone: 05-01-2017 09:51-0400 Body temperature 96.7 [degF] Arlene Signs [facility] Work Phone: 05-01-2017 09:51-0400 Body weight 147.96 kg Arlene Signs [facility] Work Phone: 05-01-2017 09:51-0400 Diastolic blood pressure 66 mm[Hg] Arlene Signs [facility] Work Phone: 05-01-2017 09:51-0400 Heart rate 61 /min Arlene Signs [facility] Work Phone: 05-01-2017 09:51-0400 SaO2% (BldA) [Mass fraction] 100 % Arlene Signs [facility] Work Phone: 05-01-2017 09:51-0400 Systolic blood pressure 110 mm[Hg] Arlene Signs [facility] Work Phone: 04-03-2017 10:29-0400 Body height 181.61 cm Arlene Signs [facility] Work Phone: 04-03-2017 10:29-0400 Body mass index (BMI) [Ratio] 44.39 kg/m2 Arlene Signs [facility] Work Phone: 04-03-2017 10:29-0400 Body temperature 97.2 [degF] Arlene Signs [facility] Work Phone: 04-03-2017 10:29-0400 Body weight 146.42 kg Arlene Signs [facility] Work Phone: 04-03-2017 10:29-0400 Diastolic blood pressure 61 mm[Hg] Arlene Signs [facility] Work Phone: 04-03-2017 10:29-0400 Heart rate 64 /min Arlene Signs [facility] Work Phone: 04-03-2017 10:29-0400 Respiratory rate 22 /min Arlene Tavarez MD [facility] Work Phone: 04-03-2017 10:29-0400 SaO2% (BldA) [Mass fraction] 97 % Arlene Tavarez MD [facility] Work Phone: 04-03-2017 10:29-0400 Systolic blood pressure 96 mm[Hg] Arlene Tavarez MD [facility] Work Phone: 12-14-2016 13:36-0500 Body surface area Derived from formula 2.61 m2 Arlene Tavarez MD [facility] Work Phone: Encounters Encounter Date Encounter Type Care Provider Facility Start: 07-19-2025 End: 07-19-2025 Patient encounter procedure David Still RELIGIOUS EDUCATION TEACHER-C -[facility] Work Phone: Start: 07-19-2025 End: 07-19-[address] Speedy Boswell MD Work Phone: -[facility] Start: 07-02-2025 End: 07-02-[address] Speedy Boswell MD Work Phone: -[facility] Start: 07-02-2025 End: 07-02-2025 Patient encounter procedure David Still RELIGIOUS EDUCATION TEACHER-C -[facility] [place] Work Phone: Start: 07-02-2025 End: 07-02-2025 ambulatory David Still NP Facility:[facility] Start: 06-24-2025 End: 06-24-[address] Jm Anguiano MD -[facility] Work Phone: Start: 06-24-2025 End: 06-24-[address] Speedy Boswell MD Work Phone: -[facility] Start: 06-10-2025 ambulatory Delilah Foster Facility:[facility] Start: 06-10-2025 Non-patient / Non-visit Dr. Delilah simpson MD -[facility] Start: 06-10-2025 End: 06-10-[address] Speedy Boswell MD Work Phone: -[facility] Start: 06-10-2025 End: 06-10-[address] Delilah Foster MD -[facility] Work Phone: Start: 06-10-2025 End: 06-10-2025 ambulatory Delilah Hernando Facility:[facility] Start: 06-07-2025 End: 06-07-[address] Speedy Boswell MD Work Phone: -[facility] [place] [employer] Start: 06-07-2025 End: 06-07-[address] Speedy Boswell MD -[facility] Start: 06-07-2025 End: 06-07-2025 ambulatory Speedy Boswell Facility:[facility] Start: 05-20-2025 End: 05-20-[address] Speedy Boswell MD Work Phone: -[facility] Start: 05-20-2025 End: 05-20-[address] Ge Tomlinson MD -[facility] Work Phone: Start: 05-12-2025 End: 05-12-[address] Speedy Boswell MD Work Phone: [facility] Work Phone: Start: 05-12-2025 End: 05-12-[address] Speedy Boswell MD -[facility] Start: 05-12-2025 End: 05-12-2025 ambulatory Speedy Boswell Facility:[facility] Start: 05-09-2025 End: 05-09-2025 Emergency department patient visit Dr. Speedy Boswell MD Work Phone: -Emergency Department Work Phone: Start: 05-03-2025 End: 05-03-[address] Delilah Foster MD -[facility] Work Phone: Start: 05-03-2025 End: 05-03-[address] Speedy Boswell MD Work Phone: [facility] Work Phone: Start: 02-18-2025 End: 02-18-2025 ambulatory Ge Tomlisnon Facility:[facility] Start: 02-18-2025 End: 02-18-[address] Ge Tomlinson MD -[facility] Work Phone: Start: 02-04-2025 End: 02-04-2025 ambulatory Ge Tomlinson Facility:[facility] Start: 02-04-2025 End: 02-04-[address] Ge Tomlinson MD -[facility] Work Phone: Start: 01-25-2025 End: 01-25-2025 ambulatory Ge Bushra Facility:[facility] Start: 01-25-2025 End: 01-25-[address] Ge Tomlinson MD -[facility] Work Phone: Start: 12-11-2024 End: 12-11-2024 ambulatory Speedy Boswell Facility:[facility] Start: 11-19-2024 End: 11-19-2024 ambulatory Ge Tomlinson Facility:[facility] Start: 11-18-2024 End: 11-18-2024 ambulatory Ravi Holder Facility:[facility] Start: 11-04-2024 End: 11-04-2024 ambulatory Delilah Foster Facility:[facility] Start: 10-26-2024 End: 10-26-2024 Emergency department patient visit Speedy Boswell Facility:[facility] Start: 10-20-2024 End: 10-21-2024 Emergency department patient visit Speedy Boswell Facility:[facility] Start: 09-10-2024 End: 09-10-2024 ambulatory Speedy Boswell Facility:[facility] Start: 08-01-2024 End: 08-01-2024 ambulatory Speedy Boswell Facility:[facility] Start: 03-30-2024 End: 03-30-2024 ambulatory KEL NIELSEN [facility] Start: 03-30-2024 End: 03-30-2024 Patient encounter procedure Kel Nielsen MD Work Phone: [facility] Comment on above: Arthritis of left kelsey btalar joint Start: 03-05-2024 End: 03-05-[address] Speedy Boswell Work Phone: [facility] Work Phone: Start: 03-05-2024 End: 03-05-[address] Speedy Boswell Work Phone: [facility]-Radiology, [facility] Work Phone: Start: 01-20-2024 End: 01-20-[address] Speedy Boswell Work Phone: [facility] Work Phone: Start: 01-16-2024 End: 01-16-[address] Speeyd Boswell Work Phone: [facility] Work Phone: Start: 01-16-2024 End: 01-16-[address] Speedy Boswell Work Phone: [facility]Laboratory Work Phone: Start: 01-06-2024 End: 01-07-2024 ambulatory SPEEDY BOSWELL Facility:[facility] Start: 01-06-2024 End: 01-07-2024 Subsequent hospital visit by physician David Ramirez MD Work Phone: [facility] Comment on above: Pacemaker lead malfu nction Start: 11-28-2023 End: 11-28-[address] Speedy Boswell Work Phone: [facility]atory, [place] Work Phone: Start: 11-21-2023 End: 11-21-2023 ambulatory DAVID RAMIREZ Facility:[facility] Start: 11-21-2023 ambulatory CARMEN Camara y:[facility] Start: 11-21-2023 End: 11-21-2023 Subsequent hospital visit by physician Carmen Kaur MD Work Phone: [facility] Start: 11-01-2023 End: 11-01-[address] Speedy Boswell Work Phone: [facility] Work Phone: Start: 10-30-2023 End: 10-30-[address] Speedy Boswell Work Phone: [facility] Work Phone: Start: 09-24-2023 Non-patient / Non-visit Dr. Mika Boswell Work Phone: [facility] Work Phone: Start: 09-24-2023 Non-patient / Non-visit Dr. Mika Boswell Work Phone: [facility] Start: 09-24-2023 End: 09-24-[address] Speedy Boswell Work Phone: [facility] Work Phone: Start: 09-24-2023 End: 09-24-[address] Speedy Boswell Work Phone: [facility]-Cardiovascul [facility] Services Work Phone: Start: 09-11-2023 ambulatory [facility] Facility:[facility] Start: 09-10-2023 End: 09-10-[address] Speedy Boswell Work Phone: [facility] Work Phone: Start: 08-26-2023 End: 08-26-2023 ambulatory [facility] Start: 08-26-2023 End: 08-26-2023 Patient encounter procedure Kel Nielsen MD Work Phone: [facility] Comment on above: Arthritis of left kelsey btalar joint Start: 02-11-2023 End: 02-11-2023 Patient encounter procedure Kel Nielsen MD Work Phone: [facility] Comment on above: Arthritis of left kelsey btalar joint Start: 01-17-2023 End: 01-17-[address] Speedy Boswell Work Phone: [facility] Work Phone: Start: 01-17-2023 End: 01-17-[address] Speedy Boswell Work Phone: [facility]-Laboratory Start: 11-20-2022 End: 11-20-[address] Speedy Boswell Work Phone: [facility] Start: 10-27-2022 End: 10-27-2022 Emergency department patient visit Dr. Speedy Boswell Work Phone: [facility]-Emergency Department Start: 08-29-2022 End: 08-29-[address] Speedy Boswell Work Phone: [facility] Work Phone: Start: 08-29-2022 End: 08-29-[address] Speedy Boswell Work Phone: [facility]-Occupational Therapy Start: 08-20-2022 End: 08-20-[address] Speedy Boswell Work Phone: [facility] Start: 08-09-2022 End: 08-09-[address] Speedy Boswell Work Phone: [facility] Start: 06-22-2022 End: 06-22-[address] Spe[facility] Start: 06-20-2022 End: 06-20-[address] Speedy Boswell Work Phone: [facility] Start: 05-24-2022 End: 05-24-[address] Speedy Boswell Work Phone: [facility] Start: 05-22-2022 End: 05-22-[address] Speedy Boswell Work Phone: [facility] Start: 05-10-2022 End: 05-10-[address] Speedy Boswell Work Phone: [facility] Start: 02-15-2022 End: 02-15-[address] Speedy Boswell Work Phone: [facility] Start: 02-07-2022 End: 02-07-[address] Speedy Boswell Work Phone: [facility] Start: 02-05-2022 End: 02-05-[address] Speedy Boswell Work Phone: [facility] Start: 01-24-2022 End: 01-24-[address] Speedy Boswell Work Phone: [facility] Start: 01-15-2022 End: 01-16-2022 Emergency department patient visit Dr. Speedy Boswell Work Phone: [facility]-Emergency Department Start: 05-23-2021 End: 06-01-2021 Evaluation and management of inpatient Roni Figueroa MD Work Phone: [facility] Comment on above: Acute traumatic pain (Primary Dx) Start: 02-16-2011 End: 06-01-2016 Preoperative cardiovascular examination Arlene Signs [facility] Work Phone: Procedures Date Procedure [...] or Pulmonary Embolism (PE)CRITICAL VALUE CALLED TO AJUPXA02/08/25 [place]7 Beto Stark.RESULTS READ BACK BY SAME. [...] Start: 01-07-2024 Assay of magnesium Rosio Douglass CORNER BRACE BLOCK MACHINE OPERATOR-GUARD ENTRANCE REGISTRAR Work Phone: Start: 01-06-2024 Radiologic exam chest 2 views Manuel Redd MD Work Phone: Start: 01-06-2024 Insj 1 transvns eltrd perm pacemaker/impltbl dfb David Ramirez MD Work Phone: Start: 01-06-2024 CBC AND ELECTRONIC DIFF Wilda A Donova n CORNER BRACE BLOCK MACHINE OPERATOR-GUARD ENTRANCE REGISTRAR Work Phone: Start: 01-06-2024 Complete blood count with white cell differential, automated Wilda Hinojosa CORNER BRACE BLOCK MACHINE OPERATOR-GUARD ENTRANCE REGISTRAR Work Phone: Start: 01-06-2024 Creatinine blood Wilda Hinojosa CORNER BRACE BLOCK MACHINE OPERATOR-GUARD ENTRANCE REGISTRAR Work Phone: Start: 01-06-2024 Ecg routine ecg w/least 12 lds w/i&r Wilda Hinojosa CORNER BRACE BLOCK MACHINE OPERATOR-GUARD ENTRANCE REGISTRAR Work Phone: Start: 11-21-2023 DEVICE EVALUATION Other [...] Work Phone: Start: 05-31-2021 COVID-19 Hamilton Silvaton CORNER BRACE BLOCK MACHINE OPERATOR - RELIGIOUS EDUCATION TEACHER Work Phone: Start: 05-29-2021 Dup-scan xtr veins complete bilateral study Hamilton Mckinnon CORNER BRACE BLOCK MACHINE OPERATOR - RELIGIOUS EDUCATION TEACHER Work Phone: Start: 05-25-2021 Basic metabolic panel [...] PA-C Work Phone: Start: 06-01-2016 End: 06-01-2016 [facility] Divina Giles PA-C Work Phone: Start: 06-01-2016 End: 06-01-2016 Prgrmg eval implantable in prsn dual lead dfb Divina Giles PA-C Work Phone: Start: 06-01-2016 End: 08-22-2016 Follow Up Appt 3 months Divina Giles PA-C Work Phone: Start: 06-01-2016 End: 06-01-2016 Follow Up Appt 6 months Divina Giles PA-C Work Phone: Start: 06-01-2016 End: 06-01-2016 [facility] Divina Giles PA-C Work Phone: Start: 06-01-2016 End: 06-22-2016 Nuclear stress test -[facility] Divina Giles PA-C Work Phone: Start: 06-01-2016 End: 08-22-2016 [facility] Divina Giles PA-C Work Phone: Start: 06-01-2016 End: 06-01-2016 [facility] Divina Giles PA-C Work Phone: Start: [...] Khris Spencer MD Start: 04-17-2012 End: 04-17-2013 Senior [employer] Developer Khris Spencer MD Start: 04-17-2012 End: 04-17-2012 [...] Work Phone: Viral antigen assay Dr. Speedy Bsowell Work Phone: Plan of Treatment Date Care Activity Detail Author Start: 12-20-2033 Tetanus vaccination TETANUS [facility] Start: 05-09-2025 [facility] Start: 05-09-2025 [facility] Start: 01-07-2025 Potassium [Moles/volume] in Serum or Plasma POTASSIUM [facility] Start: 11-21-2024 Potassium [Moles/volume] in Serum or Plasma POTASSIUM [facility] Start: 08-02-2024 Influenza vaccination Influenza Vaccine (Season Ended) [facility] Start: 05-27-2024 DTaP/Tdap/Td vaccine (3 - Td or Tdap) DTaP/Tdap/Td vaccine (3 - Td or Tdap) [facility] Work Phone: Start: 05-27-2024 DTaP/Tdap/Td Vaccines (3 - Td or Tdap) DTaP/Tdap/Td Vaccines (3 - Td or Tdap) [facility] Start: 05-27-2024 Tetanus vaccination TETANUS [facility] Start: 12-04-2023 End: 12-04-2023 Admission to same day surgery center 12/04/2023 9:45 AM EST - 12/04/2023 12:15 PM EST Surgery Cardiovascular Imaging [facility] [address] [place] [id number] Justin Pittman MD [address] [place] [address] ICD Generator Changeout [facility] Comment on above: ICD Generator Changeout Start: 12-04-2023 Subsequent hospital visit by physician 12/04/2023 9:45 AM EST Hospital Encounter [facility] [address] [place] [address] Justin Pittman MD [address] [place] [address] ICD (implantable cardioverter-defibrill ator) battery depletion [facility] Comment on above: ICD (implantable cardioverter-defibrilla tor) battery depletion Start: 12-02-2023 Medicare Advantage Annual Wellness Visit Medicare Advantage Annual Wellness Visit [facility] Start: 09-10-2023 Patient referral [facility] Work Phone: Start: 08-02-2023 COVID-19 Vaccine ( season) COVID-19 Vaccine () [facility] Start: 08-02-2023 Influenza vaccination Influenza Vaccine (#1) [facility] Start: 10-27-2022 [facility] Start: 08-15-2022 COVID-19 Vaccine (4 - Booster for Moderna series) COVID-19 Vaccine (4 - Booster for Moderna series) [facility] Start: 08-09-2022 Patient referral [facility] Work Phone: Start: 05-25-2022 Creatinine measurement [facility] Start: 05-25-2022 Potassium measurement Potassium Level [facility] Start: 05-25-2022 Potassium monitoring Potassium monitoring [facility] Work Phone: Start: 08-02-2021 Influenza vaccination Flu vaccine (#1) [facility] Work Phone: Start: 2020 Abdominal aortic aneurysm screening ABDOMINAL AORTIC ANEURYSM HIGH RISK SCREEN [facility] Start: 2020 Pneumococcal 65+ years Vaccine (1 of 1 - PPSV23) Pneumococcal 65+ years Vaccine (1 of 1 - PPSV23) [facility] Work Phone: Start: 01-10-2020 Lipid panel Lipid Panel [facility] Start: 05-19-2019 Annual Wellness Visit (AWV) Annual Wellness Visit (AWV) [facility] Work Phone: Start: 11-01-2018 Lipid panel Lipid Panel [facility] Start: 01-08-2018 End: 01-08-2018 Appointment Appointment [facility] Work Phone: Start: 12-20-2017 End: 12-20-2017 Appointment Appointment [facility] Work Phone: Start: 09-13-2017 End: 09-13-2017 Follow Up Appt 3 months Follow Up Appt 3 months [facility] Work Phone: Start: 09-13-2017 End: 09-13-2017 Pacer Clinic Pac[facility] Clinic [facility] Work Phone: Start: 09-13-2017 End: 09-13-2017 Patient encounter procedure Appointment [facility] Work Phone: Start: 09-13-2017 End: 09-13-2017 Follow Up Appt 3 months Follow Up Appt 3 months [facility] Work Phone: Start: 09-13-2017 End: 09-13-2017 Pacer Clinic Pacer Clinic [facility] Work Phone: Start: 07-16-2017 End: 07-16-2017 Patient encounter procedure Appointment [facility] Work Phone: Start: 07-03-2017 End: 07-07-2017 Follow Up Appt Other Follow Up Appt Other [facility] Work Phone: Start: 07-03-2017 End: 07-03-2017 Patient encounter procedure Appointment [facility] Work Phone: Start: 07-03-2017 End: 07-07-2017 Follow Up Appt Other Follow Up Appt Other [facility] Work Phone: Start: 07-02-2017 End: 07-02-2017 Patient encounter procedure Appointment [facility] Work Phone: Start: 06-19-2017 End: 06-19-2017 Esophagogastroduodenoscopy transoral diagnostic Upper gastrointestinal endoscopy [facility] Work Phone: Start: 06-19-2017 End: 06-19-2017 Follow Up Appt Other Follow Up Appt Other [facility] Work Phone: Start: 06-19-2017 End: 06-19-2017 Patient encounter procedure App[facility]ment [facility] Work Phone: Start: 06-19-2017 End: 06-19-2017 Esophagogastroduodenoscopy transoral diagnostic Upper gastrointestinal endoscopy [facility] [employer] Work Phone: Start: 06-19-2017 End: 06-19-2017 Follow Up Appt Other Follow Up Appt Other [facility] [employer] Work Phone: Start: 06-14-2017 End: 06-14-2017 Follow Up Appt 3 months Follow Up Appt 3 months [facility] Work Phone: Start: 06-14-2017 End: 06-14-2017 Follow Up Appt 6 months Follow Up Appt 6 months [facility] Work Phone: Start: 06-14-2017 End: 06-14-2017 Pacer Clinic Pacer Clinic [facility] Work Phone: Start: 06-14-2017 End: 06-14-2017 PFM PFM [facility] Work Phone: Start: 06-14-2017 End: 06-14-2017 Patient encounter procedure App[facility]ment [facility] Work Phone: Start: 06-14-2017 End: 06-14-2017 Follow Up Appt 3 months Follow Up Appt 3 months [facility] Work Phone: Start: 06-14-2017 End: [...] 05-15-2017 End: 05-15-2017 Patient encounter procedure Appointment [facility] Work Phone: Start: 05-15-2017 End: 05-28-2017 Follow Up Appt Other Follow Up Appt Other [facility] Work Phone: Start: 05-01-2017 End: 05-01-2017 Patient encounter procedure Appointment [facility] Work Phone: Start: 04-03-2017 End: 04-03-2017 Surgery Referral Surgery Referral Lowell Otero MD, [facility], [address] [place] [address], [place], [address] [facility] Work Phone: Start: 04-03-2017 End: 05-24-2017 Admission to same day surgery center Surgery Referral Lowell Otero MD, [facility], [address] [place] [address], [facility] [address], [place], [address] [facility] Work Phone: Start: 12-14-2016 End: 12-14-2016 Device Interrogation Device Interrogation [facility] Work Phone: Start: 12-14-2016 End: 06-06-2017 Follow Up Appt 3 months Follow Up Appt 3 months [facility] Work Phone: Start: 12-14-2016 End: 12-14-2016 Follow Up Appt 6 months Follow Up Appt 6 months [facility] Work Phone: Start: 12-14-2016 End: 12-14-2016 MMM MMM [facility] Work Phone: Start: 12-14-2016 End: 06-06-2017 Pacer Clinic Pacer Clinic [facility] Work Phone: Start: 12-14-2016 End: 12-14-2016 Device Interrogation Device Interrogation [facility] Work Phone: Start: 12-14-2016 End: 06-06-2017 Follow Up Appt 3 months Follow Up Appt 3 months [facility] Work Phone: Start: 12-14-2016 End: 12-14-2016 Follow Up Appt 6 months Follow Up Appt 6 months [facility] Work Phone: Start: 12-14-2016 End: 12-14-2016 MMM MMM [facility] Work Phone: Start: 12-14-2016 End: 06-06-2017 Pacer Clinic Pac[facility] Clinic [facility] Work Phone: Start: 09-05-2016 End: 12-14-2016 Follow Up Appt 3 months Follow Up Appt 3 months [facility] Work Phone: Start: 09-05-2016 End: 09-05-2016 Follow Up Appt Other Follow Up Appt Other [facility] Work Phone: Start: 09-05-2016 End: 12-14-2016 Pacer Clinic Pacer Clinic [facility] Work Phone: Start: 09-05-2016 End: 12-14-2016 Follow Up Appt 3 months Follow Up Appt 3 months [facility] Work Phone: Start: 09-05-2016 End: 09-05-2016 Follow Up Appt Other Follow Up Appt Other [facility] Work Phone: Start: 09-05-2016 End: 12-14-2016 Pacer Clinic Pac[facility] Work Phone: Start: 06-01-2016 End: 08-22-2016 Follow Up Appt 3 months Follow Up Appt 3 months [facility] Work Phone: Start: 06-01-2016 End: 06-01-2016 Follow Up Appt 6 months Follow Up Appt 6 months [facility] Work Phone: Start: 06-01-2016 End: 06-01-2016 MMM MMM [facility] Work Phone: Start: 06-01-2016 End: 06-01-2016 Nuclear stress test -Lexiscan Nuclear stress test -Lexiscan [facility] Work Phone: Start: 06-01-2016 End: 08-22-2016 Pacer Clinic Pacer Clinic [facility] Work Phone: Start: 06-01-2016 End: 06-01-2016 PFM PFM [facility] Work Phone: Start: 06-01-2016 End: 08-22-2016 Follow Up Appt 3 months Follow Up Appt 3 months [facility] Work Phone: Start: 06-01-2016 End: 06-01-2016 Follow Up Appt 6 months Follow Up Appt 6 months [facility] Work Phone: Start: 06-01-2016 End: 06-01-2016 MMM MMM [facility] Work Phone: Start: 06-01-2016 End: 06-01-2016 Nuclear stress test -Lexiscan Nuclear stress test -Lexiscan [facility] Work Phone: Start: 06-01-2016 End: 08-22-2016 Pacer Clinic Pacer Clinic [facility] Work Phone: Start: 06-01-2016 End: 06-01-2016 PFM PFM [facility] Work Phone: Start: 02-28-2016 End: 05-18-2016 Follow Up Appt 3 months Follow Up Appt 3 months [facility] Work Phone: Start: 02-28-2016 End: 05-18-2016 Pacer Clinic Pacer Clinic [facility] Work Phone: Start: 02-28-2016 End: 05-18-2016 Follow Up Appt 3 months Follow Up Appt 3 months [facility] Work Phone: Start: 02-28-2016 End: 05-18-2016 Pacer Clinic Pacer Clinic [facility] Work Phone: Start: 11-30-2015 End: 11-30-2015 Device Interrogation Device Interrogation [facility] Work Phone: Start: 11-30-2015 End: 11-30-2015 Echocardiography Echocardiogram (complete) [facility] Work Phone: Start: 11-30-2015 End: 05-18-2016 Follow Up Appt 3 months Follow Up Appt 3 months [facility] Work Phone: Start: 11-30-2015 End: [...] 3 months Follow Up Appt 3 months [facility] Work Phone: Start: 11-30-2015 End: 11-30-2015 Follow Up Appt 6 months Follow Up Appt 6 months [facility] Work Phone: Start: 11-30-2015 End: 11-30-2015 MMM MMM [facility] Work Phone: Start: 11-30-2015 End: [facility] Work Phone: Start: 08-17-2015 End: 08-17-2015 *CBC with Differential *CBC with Differential [facility] Work Phone: Start: 08-17-2015 End: 05-18-2016 Follow Up Appt 3 months Follow Up Appt 3 months [facility] Work Phone: Start: 08-17-2015 End: 05-18-[facility] Work Phone: Start: 08-17-2015 End: 08-17-2015 CBC W Auto Differential panel - Blood *CBC with Differential [facility] Work Phone: Start: 08-17-2015 End: 05-18-2016 Follow Up Appt 3 months Follow Up Appt 3 months [facility] Work Phone: Start: 08-17-2015 End: 05-18-2016 [facility] Work Phone: Start: 08-03-2015 End: 08-03-2015 Follow Up Appt 3 months Follow Up Appt 3 months [facility] Work Phone: Start: 08-03-2015 End: 08-03-2015 PFM PFM [facility] Work Phone: Start: 08-03-2015 End: 08-03-2015 Follow Up Appt 3 months Follow Up Appt 3 months [facility] Work Phone: Start: 08-03-2015 End: 08-03-2015 PFM PFM [facility] Work Phone: Start: 05-12-2015 End: 07-20-2015 Follow Up Appt 3 months Follow Up Appt 3 months [facility] Work Phone: Start: 05-12-2015 End: 07-20-2015 Pacer Clinic Pacer Clinic [facility] Work Phone: Start: 05-12-2015 End: 07-20-2015 Follow Up Appt 3 months Follow Up Appt 3 months [facility] Work Phone: Start: 05-12-2015 End: 07-20-2015 Pacer Clinic Pacer Clinic [facility] Work Phone: Start: 05-04-2015 End: 07-20-2015 *BMP *BMP [facility] Work Phone: Start: 05-04-2015 End: 07-20-2015 Follow Up Appt 3 months Follow Up Appt 3 months [facility] Work Phone: Start: 05-04-2015 End: 07-20-2015 MMM MMM [facility] Work Phone: Start: 05-04-2015 End: 07-20-2015 Basic metabolic 2000 panel - Serum or Plasma *BMP [facility] Work Phone: Start: 05-04-2015 End: 07-20-2015 Follow Up Appt 3 months Follow Up Appt 3 months [facility] Work Phone: Start: 05-04-2015 End: 07-20-2015 MMM MMM [facility] Work Phone: Start: 05-02-2015 End: 05-03-2015 *BMP *BMP [facility] Work Phone: Start: 05-02-2015 End: 05-03-2015 Basic metabolic 2000 panel - Serum or Plasma *BMP [facility] Work Phone: Start: 2015 RSV Immunization aged 60 or older (1 - 1-dose 60+ series) RSV Immunization aged 60 or older (1 - 1-dose 60+ series) [employer] Start: 03-30-2015 End: 07-20-2015 Follow Up Appt Other Follow Up Appt Other [facility] Work Phone: Start: 03-30-2015 End: 07-20-2015 Follow Up Appt Other Follow Up Appt Other [facility] Work Phone: Start: 03-16-2015 End: 03-25-2015 *BMP *BMP [facility] Work Phone: Start: 03-16-2015 End: 03-25-2015 *CBC with Differential *CBC with Differential [facility] Work Phone: Start: 03-16-2015 End: 03-25-2015 BNP *Brain Natriuretic Peptide BNP [facility] Work Phone: Start: 03-16-2015 End: 03-16-2015 Follow up Appt 3 weeks Follow up Appt 3 weeks [facility] Work Phone: Start: 03-16-2015 End: 03-16-2015 MMM MMM [facility] Work Phone: Start: 03-16-2015 End: 03-25-2015 Basic metabolic 2000 panel - Serum or Plasma *BMP [facility] Work Phone: Start: 03-16-2015 End: 03-25-2015 CBC W Auto Differential panel - Blood *CBC with Differential [facility] Work Phone: Start: 03-16-2015 End: 03-16-2015 Follow up Appt 3 weeks Follow up Appt 3 weeks [facility] Work Phone: Start: 03-16-2015 End: 03-16-2015 MMM MMM [facility] Work Phone: Start: 03-16-2015 End: 03-25-2015 Natriuretic peptide B [Mass/volume] in Blood *Brain Natriuretic Peptide BNP [facility] Work Phone: Start: 03-11-2015 End: 03-11-2015 *BMP *BMP [facility] Work Phone: Start: 03-11-2015 End: 03-11-2015 Basic metabolic 2000 panel - Serum or Plasma *BMP [facility] Work Phone: Start: 03-07-2015 End: 03-07-2015 Follow Up Appt Other Follow Up Appt Other [facility] Work Phone: Start: 03-07-2015 End: 03-07-2015 Follow Up Appt Other Follow Up Appt Other [facility] Work Phone: Start: 01-10-2015 End: 01-10-2015 *BMP *BMP [facility] Work Phone: Start: 01-10-2015 End: 01-10-2015 *CBC with Differential *CBC with Differential [facility] Work Phone: Start: 01-10-2015 End: 01-10-2015 Follow Up Appt 3 months Follow Up Appt 3 months [facility] Work Phone: Start: 01-10-2015 End: 01-10-2015 Magnesium *Magnesium [facility] Work Phone: Start: 01-10-2015 End: 01-10-2015 Pacer Clinic Pacer Clinic [facility] Work Phone: Start: 01-10-2015 End: 01-10-2015 PFM PFM [facility] Work Phone: Start: 01-10-2015 End: 01-10-2015 Thyroid stimulating hormone (TSH) *TSH [facility] Work Phone: Start: 01-10-2015 End: 01-10-2015 Basic metabolic 2000 panel - Serum or Plasma *BMP [facility] Work Phone: Start: 01-10-2015 End: 01-10-2015 CBC W Auto Differential panel - Blood *CBC with Differential [facility] Work Phone: Start: 01-10-2015 End: 01-10-2015 Follow Up Appt 3 months Follow Up Appt 3 months [facility] Work Phone: Start: 01-10-2015 End: 01-10-2015 Magnesium [Mass/volume] in Serum or Plasma *Magnesium [facility] Work Phone: Start: 01-10-2015 End: 01-10-2015 Pacer Clinic Pacer Clinic [facility] Work Phone: Start: 01-10-2015 End: 01-10-2015 PFM PFM [facility] Work Phone: Start: 01-10-2015 End: 01-10-2015 Thyrotropin [Units/volume] in Serum or Plasma *TSH [facility] Work Phone: Start: 12-03-2014 End: 01-10-2015 Follow Up Appt 3 months Follow Up Appt 3 months [facility] Work Phone: Start: 12-03-2014 End: 01-10-2015 Pacer Clinic Pacer Clinic [facility] Work Phone: Start: 12-03-2014 End: 01-10-2015 Follow Up Appt 3 months Follow Up Appt 3 months [facility] Work Phone: Start: 12-03-2014 End: 01-10-2015 Pacer Clinic Pacer [facility] Work Phone: Start: 08-19-2014 End: 01-10-2015 Follow Up Appt 3 months Follow Up Appt 3 months [facility] Work Phone: Start: 08-19-2014 End: 01-10-2015 Pacer Clinic Pacer Clinic [facility] Work Phone: Start: 08-19-2014 End: 01-10-2015 Follow Up Appt 3 months Follow Up Appt 3 months [facility] Work Phone: Start: 08-19-2014 End: [...] 05-14-2014 End: 01-10-2015 Pacer Clinic Pacer Clinic [facility] Work Phone: Start: 05-14-2014 End: 01-10-2015 Follow Up Appt 3 months Follow Up Appt 3 months [facility] Work Phone: Start: 05-14-2014 End: 01-10-2015 Pacer Clinic Pacer Clinic [facility] Work Phone: Start: 02-25-2014 End: 03-07-2015 External Counterpulsation Therapy External Counterpulsation Therapy [address] [place] [address], [address], [address] [facility] Work Phone: Start: 02-25-2014 End: 02-25-2014 Us abdominal real time w/image limited US Abdominal (aneurysm screening) [facility] Work Phone: Start: 02-25-2014 End: 03-07-2015 External Counterpulsation Therapy External Counterpulsation Therapy [address] [facility], [address], [place], [address] [facility] Work Phone: Start: 02-25-2014 End: 02-25-2014 Us abdominal real time w/image limited US Abdominal (aneurysm screening) [facility] Work Phone: Start: 02-05-2014 End: 01-10-2015 Follow Up Appt 3 months Follow Up Appt 3 months [facility] Work Phone: Start: 02-05-2014 End: 01-10-2015 Pacer Clinic Pacer Clinic [facility] Work Phone: Start: 02-05-2014 End: [...] using treadmill Treadmill stress test (no imaging) [facility] Work Phone: Start: 11-06-2013 End: 01-10-2015 Follow Up Appt 3 months Follow Up Appt 3 months [facility] Work Phone: Start: 11-06-2013 End: 01-10-2015 Pacer Clinic Pacer Clinic [facility] Work Phone: Start: 11-06-2013 End: [...] 01-10-2015 *Hepatic Function Panel *Hepatic Function Panel [facility] Work Phone: Start: 11-01-2013 End: 01-10-2015 Lipid panel [AGGREGATE] *Lipid Profile CC PCP [facility] Work Phone: Start: 11-01-2013 End: [...] Up Appt Other Follow Up Appt Other [facility] Work Phone: Start: 10-16-2013 End: 10-28-2013 *BMP *BMP [facility] Work Phone: Start: 10-16-2013 End: 10-28-2013 aPTT *PTT-Partial Thromboplastin Time [facility] Work Phone: Start: 10-16-2013 End: [...] End: 10-28-2013 INR Coag RelTime (PPP) *PT/INR [facility] Work Phone: Start: 10-16-2013 End: 10-09-2013 Left Heart Cath W/Grafts Left Heart Cath W/Grafts [facility] Work Phone: Start: 10-16-2013 End: 10-28-2013 aPTT in Platelet poor plasma by Coagulation assay *PTT-Partial Thromboplastin Time [facility] Work Phone: Start: 10-16-2013 End: 10-28-2013 Basic metabolic 2000 panel - Serum or Plasma *BMP [facility] Work Phone: Start: 10-16-2013 End: 10-28-2013 CBC W Auto Differential panel - Blood *CBC without Diff [facility] Work Phone: Start: 10-16-2013 End: 10-28-2013 Chest x-ray X-Ray, Chest, PA & Lateral [facility] Work Phone: Start: 10-16-2013 End: 10-28-2013 Ecg routine ecg w/least 12 lds w/i&r EKG (In office) [facility] Work Phone: Start: 10-16-2013 End: 10-28-2013 INR in Platelet poor plasma by Coagulation assay *PT/INR [facility] Work Phone: Start: 10-16-2013 End: 10-09-2013 Left Heart Cath W/Grafts Left Heart Cath W/Grafts [facility] Work Phone: Start: 10-07-2013 End: 10-28-2013 Follow Up Appt Other Follow Up Appt Other [facility] Work Phone: Start: 10-07-2013 End: 10-28-2013 MMM MMM [facility] Work Phone: Start: 10-07-2013 End: 10-28-2013 Follow Up Appt Other Follow Up Appt Other [facility] Work Phone: Start: 10-07-2013 End: 10-28-2013 MMM MMM [facility] Work Phone: Start: 08-26-2013 End: 10-28-2013 Follow Up Appt 3 months Follow Up Appt 3 months [facility] Work Phone: Start: 08-26-2013 End: 10-28-2013 Pacer Clinic Pacer Clinic [facility] Work Phone: Start: 08-26-2013 End: 10-28-2013 Follow Up Appt 3 months Follow Up Appt 3 months [facility] Work Phone: Start: 08-26-2013 End: [...] 08-05-2013 End: 08-06-2013 Pacer Clinic Pacer Clinic [facility] Work Phone: Start: 08-05-2013 End: 08-06-2013 Follow Up Appt 3 months Follow Up Appt 3 months [facility] Work Phone: Start: 08-05-2013 End: 08-06-2013 Pacer Clinic Pacer Clinic [facility] Work Phone: Start: 07-01-2013 End: 07-24-2013 Follow Up Appt 1 month Follow Up Appt 1 month [facility] Work Phone: Start: 07-01-2013 End: 07-24-2013 MMM MMM [facility] Work Phone: Start: 07-01-2013 End: 07-24-2013 Follow Up Appt 1 month Follow Up Appt 1 month [facility] Work Phone: Start: 07-01-2013 End: 07-24-2013 MMM MMM [facility] Work Phone: Start: 05-05-2013 End: 06-03-2013 Follow Up Appt 3 months Follow Up Appt 3 months [facility] Work Phone: Start: 05-05-2013 End: 06-03-2013 Pacer Clinic Pacer Clinic [facility] Work Phone: Start: 05-05-2013 End: 06-03-2013 Follow Up Appt 3 months Follow Up Appt 3 months [facility] Work Phone: Start: 05-05-2013 End: 06-03-2013 Pacer Clinic Pacer Clinic [facility] Work Phone: Start: 04-22-2013 End: 05-08-2013 *Hepatic Function Panel *Hepatic Function Panel [facility] Work Phone: Start: 04-22-2013 End: 05-08-2013 Lipid panel [AGGREGATE] *Lipid Profile [facility] Work Phone: Start: 04-22-2013 End: 05-08-2013 Hepatic function 2000 panel - Serum or Plasma *Hepatic Function Panel [facility] Work Phone: Start: 04-22-2013 End: 05-08-2013 Lipid 1996 panel - Serum or Plasma *Lipid Profile [facility] Work Phone: Start: 04-20-2013 End: [...] w/least 12 lds w/i&r EKG (In office) [facility] Work Phone: Start: 04-20-2013 End: 04-21-2013 Echocardiography Echocardiogram (complete) [facility] Work Phone: Start: 04-20-2013 End: 04-21-2013 Follow Up Appt 6 months Follow Up Appt 6 months [facility] Work Phone: Start: 04-20-2013 End: 04-21-2013 PFM PFM [facility] Work Phone: Start: 10-30-2012 End: 04-21-2013 Follow Up Appt 6 months Follow Up Appt 6 months [facility] Work Phone: Start: 10-30-2012 End: 04-21-2013 Follow Up Appt 6 months Follow Up Appt 6 months [facility] Work Phone: Start: 09-03-2012 End: 04-21-2013 *BMP *BMP [facility] Work Phone: Start: 09-03-2012 End: 04-21-2013 *Hepatic Function Panel *Hepatic Function Panel [facility] Work Phone: Start: 09-03-2012 End: 04-21-2013 Lipid panel [AGGREGATE] *Lipid Profile [facility] Work Phone: Start: 09-03-2012 End: 04-21-2013 Magnesium *Magnesium [facility] Work Phone: Start: 09-03-2012 End: 04-21-2013 Basic metabolic 2000 panel - Serum or Plasma *BMP [facility] Work Phone: Start: 09-03-2012 End: 04-21-2013 Hepatic function 2000 panel - Serum or Plasma *Hepatic Function Panel [facility] Work Phone: Start: 09-03-2012 End: 04-21-2013 Lipid 1996 panel - Serum or Plasma *Lipid Profile [facility] Work Phone: Start: 09-03-2012 End: 04-21-2013 Magnesium [Mass/volume] in Serum or Plasma *Magnesium [facility] Work Phone: Start: 04-17-2012 End: 04-18-2012 Senior J2Ee Developer Senior J2Ee Developer [facility], [address] [place] [address], [id number] [facility] Work Phone: Start: 04-17-2012 End: 04-17-2012 Follow Up Appt 6 months Follow Up Appt 6 months [facility] Work Phone: Start: 04-17-2012 End: 04-17-2012 Follow Up Appt 6 months Follow Up Appt 6 months [facility] Work Phone: Start: 04-17-2012 End: 04-18-2012 Patient encounter procedure Senior J2Ee Developer [facility], [address] [place] [address], [id number] [facility] Work Phone: Start: 03-05-2012 End: [...] panel - Serum or Plasma *Lipid Profile [facility] Work Phone: Start: 12-10-2011 End: 12-10-2011 Follow Up Appt Other Follow Up Appt Other [facility] Work Phone: Start: 12-10-2011 End: 12-10-2011 Follow Up Appt Other Follow Up Appt Other [facility] Work Phone: Start: 08-28-2011 Pneumococcal Vaccine: 65+ Years (2 - PCV) Pneumococcal Vaccine: 65+ Years (2 - PCV) [facility] Start: 08-28-2011 Pneumococcal Vaccine: 65+ Years (2 of 2 - PCV) Pneumococcal Vaccine: 65+ Years (2 of 2 - PCV) [facility] Start: 2005 Prostate specific antigen measurement PROSTATE CANCER SCREENING DISCUSSION [facility] Start: 2005 Screening for malignant neoplasm of colon Colon cancer screen colonoscopy [facility] Work Phone: Start: 2005 Shingles Vaccine (1 of 2) Shingles Vaccine (1 of 2) [facility] Work Phone: Start: 2000 Screening for malignant neoplasm of colon COLORECTAL CANCER SCREENING DISCUSSION [facility] Start: 1995 Diabetes screen Diabetes screen [facility] Work Phone: Start: 1995 Lipid panel LIPID SCREENING [facility] Start: 1973 Diabetes mellitus screening Diabetes Screening [facility] Start: 1973 Hepatitis C screening Hepatitis C Screening [facility] Start: 1967 Depression Screening Depression Screening [facility] Start: 1965 Lipid panel Lipid screen [facility] Work Phone: Start: 1955 Abdominal aortic aneurysm screening AAA screen [facility] Work Phone: Start: 1955 Echocardiography Echocardiogram [facility] Start: 1955 Hepatitis B Vaccines (1 of 3 - 3-dose series) Hepatitis B Vaccines (1 of 3 - 3-dose series) [facility] Start: 1955 Hepatitis C screening [facility] Start: 1955 Medicare Advantage Annual Wellness Visit (AWV) Medicare Advantage Annual Wellness Visit (AWV) [facility] Start: 1955 Screening for malignant neoplasm of colon [facility] Alanine aminotransfe rase [Enzymatic activity/volume] in Serum or Plasma [facility] Aspartate aminotrans ferase [Enzymatic activity/volume] in Serum or Plasma [facility] AUTOPAP AutoPAP Respirat ory Care Routine QHS until discontinued starting 05/25/2021 [facility] Work Phone: Comment on above: QHS until discontinued starting 05/25/20 Comprehensive metabo lic 2000 panel - Serum or Plasma [facility] Electrophysiology study EP PROCE DURE - EPS/ABLATION/DEVICE Electrophysiology Routine ICD (implantable cardioverter-defibrill ator) battery depletion 01/06/2024 1:36 PM EST [facility] End: 05-24-2021 FL Greater Than 1 Hour FL Greater Than 1 Hour Imaging Routine Once for 1 Occurrences starting 05/24/2021 until 05/24/2021 [facility] Work Phone: Comment on above: Once for 1 Occurrences starting 05/24/20 21 until 05/24/2021 FL Greater Than 1 Hour FL Greate r Than 1 Hour Imaging Routine 05/24/2021 2:20 PM EDT [facility] Work Phone: End: 01-06-2024 Interrogation of cardiac pacemaker PACEMAKER/ICD INTERROGATION Cardiac Services Routine One Time for 1 Occurrences starting 01/06/2024 until 01/06/2024 [facility] Comment on above: One Time for 1 Occurrences starting 04/2024 until 01/06/2024 Lipid 1996 panel - S silvana or Plasma [facility] Lipid 1995 panel - S silvana or Plasma [facility] NM Heart Views W str ess and W radionuclide IV [facility] Oxygen therapy [[facility] Data Set] Initiate Oxygen Therapy Protocol Respiratory Care Routine Daily until discontinued starting 05/24/2021 [facility] Work Phone: Comment on above: Daily until discontinued starting 2020 Patient Education [facility] Work Phone: Patient referral [facility] Work Phone: Troponin T.cardiac [Mass/volume] in Serum or Plasma by High sensitivity method [facility] US Heart [facility] VL DUP LOWER EXTREMI TY VENOUS BILATERAL VL DUP LOWER EXTREMITY VENOUS BILATERAL Imaging Routine Every Mo,Th until discontinued starting 05/29/2021, 1 completed [facility] Work Phone: Comment on above: Every Mo,Th until discontinued starting 05/29/2021, 1 completed Immunizations Immunization Date Immunization Notes Care Provider [facility] 09-04-2022 influenza virus vaccine, unspecified formulation Kel Nielsen MD Work Phone: [facility] [employer] 01-17-2021 Covid (Moderna) Dr. Speedy mckeon Work Phone: [facility] 12-21-2020 Covid (Moderna) Dr. Speedy mckeon Work Phone: [facility] 10-02-[address] Speedy Boswlel Work Phone: [facility] 05-27-2014 tetanus toxoid, reduced diphtheria toxoid, and acellular pertussis vaccine, adsorbed Dr. Speedy Boswell Work Phone: [facility] 09-01-[address] Speedy Boswell Work Phone: [facility] 02-13-[address] Veronica Boswell Work Phone: [facility] Work Phone: 02-13-2005 pneumococcal vaccine , unspecified formulation Dr. Speedy Boswell Work Phone: [facility] Payers Date Payer Category Payer Self-pay [id number] 2023 Medicare [id number] 2023 Unknown [id number] 2022 Medicare [id number] 2021 Medicare [id number] [id number] 2020 Medicare [id number] 2020 Unknown [id number] 2010 Private Health Insurance [id number] 1955 Unknown [id number] 2.16.840.1.968689.3.579.2.5 1955 Unknown [id number] 2.16.840.1.107944.3.579.2.5 94 1955 Unknown [id number] 2.16.840.1.258543.3.579.2.5 94 1955 Unknown [id number] 2.16.840.1.474290.3.579.2.5 94 1955 Unknown [id number] 2.16.840.1.281678.3.579.2.5 94 Medicare [id number] Private Health [facility] 18 [id number] Unknown [id number] 2.16.840.1.232733.3.579.2.4 62 Unknown [id number] 2.16.840.1.513936.3.579.2.4 62 Unknown [id number] 2.16.840.1.088681.3.579.2.4 62 Unknown [id number] 2.16.840.1.808341.3.579.2.4 62 Unknown [id number] 2.16.840.1.594387.3.579.2.4 62 Unknown [id number] 2.16.840.1.846790.3.579.2.4 62 Unknown [id number] 2.16.840.1.159966.3.579.2.4 62 Unknown [id number] 2.16.840.1.535199.3.579.2.4 62 Unknown [id number] 2.16.840.1.744353.3.579.2.4 62 Unknown [id number] 2.16.840.1.019548.3.579.2.4 62 Unknown [id number] 2.16.840.1.357130.3.579.2.4 62 Unknown [id number] 2.16.840.1.903591.3.579.2.4 62 Unknown [id number] 2.16.840.1.403790.3.579.2.4 62 Unknown [id number] 2.16.840.1.202048.3.579.2.4 62 Unknown [id number] 2.16.840.1.277299.3.579.2.4 62 Unknown [id number] 2.16.840.1.437731.3.579.2.4 62 Unknown [id number] 2.16.840.1.591363.3.579.2.4 62 Unknown [id number] 2.16.840.1.549729.3.579.2.4 62 Unknown [id number] 2.16.840.1.978682.3.579.2.4 62 Unknown [id number] 2.16.840.1.706627.3.579.2.4 62 Unknown [id number] 2.16.840.1.162854.3.579.2.4 62 Unknown [id number] 2.16.840.1.626620.3.579.2.4 62 Unknown [id number] 2.16.840.1.065835.3.579.2.4 62 Social History Date Type Detail Facility Start: 05-25-2021 End: 05-09-2025 Tobacco smoking status LAIS Former smoker [facility] Work Phone: End: 12-02-1980 History of tobacco use Current smoker [facility] End: 12-02-1980 History of tobacco use Cigarette Smoker [facility] Start: 05-25-2021 End: 02-11-2023 Cigarettes smoked current (pack per day) - Reported [facility] Work Phone: Start: 05-25-2021 End: 02-11-2023 Tobacco use and exposure Current user [facility] History of tobacco use Chews Tobacco [facility] Start: 05-25-2021 End: 02-11-2023 Alcohol intake Current drinker of alcohol (finding) [facility] Work Phone: Start: 05-04-2019 Alcohol Comment OCCAS [facility]ER [facility] Work Phone: Start: 1955 Sex Assigned At Not on file S [facility] Work Phone: Start: 02-01-2023 End: 08-26-2023 Exposure to SARS-CoV-2 (event) Not sure [facility] Start: 02-05-2022 End: 10-30-2023 Tobacco smoking status LAIS Unknown if ever smoked [facility] Start: 02-18-2021 None [facility] Start: 02-18-2021 Alone [facility] Start: 04-06-2021 Non-smoker [facility] Start: 1955 Sex Assigned At Male [facility] Start: 03-18-2015 End: 08-26-2023 Tobacco use panel [facility] Start: 02-04-2023 Gender identity Identifies as male gender (finding) [facility] Start: 02-04-2023 Sexual orientation Heterosexual (fin ding) [facility] Medical Equipment Procedure Code Equipment Code [...] FDA Star t: 08-05-2019 Defibrillator Cr d [id number] [id number] Fortify Asr Parylene 2 - [id number] Start: 01-06-2024 Lead Pacing 52cm 6fr Endocardium Tendril Sts Bipolar Active - [id number] Start: 01-06-2024 SUTURE,2 FIBERLINK FDA Start: [...] Result Facility 05-09-2025 Cognitive function Voice/Name [facility] Work Phone: Clinical Notes 08-02-2010 to 06-24-2025 Note Date & Type Note Facility 06-24-2025 Progress note [facility] 06-24-2025 Progress note Note Date/Time June 24, 2025 3:15pm [facility] [place] [address] OFFICE VISIT Date of Service: 06/24/25 MR#: [id number] Acct: [id number] Name: ALBIN ISSA Rep #: [id number] : 1955 Provider: Dr. 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 Shortness of breath History of 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 ocean transportation intermediary use of drug Ischemic cardiomyopathy (~10/30/23) Atherosclerosis [...] I Coding Level of Care Code Attention Senior Analyst Programmer Diagnoses De Quervain's disease (radial styloid tenosynovitis) M65.4 Comment 25532 and cpt inject thumb tendon x 2 [...] fallen in the past year?: No 06/24/25 5804 <Electronically signed by Jm pollock MD> Date _ Jm Anguiano MD Cosigner Signature: Date (if applicable) CC: ~ [facility] Work Phone: 1(440) 582-407606-11-2025 Radiology Diagnostic study note [facility] [address] [place], [place] [address] CTA Chest W/WO Contrast MR#: [id number] Acct: [id number] Name: ALBIN ISSA Rep #: [id number] : 1955 M 70 From: Madiha Kirk MD PCP: Dr. Speedy Boswell MD Status: PORFIRIO VIDAL Study:CTA Chest W/WO Contrast Date of Exam: 05/12/25 Exam# [id number] Ordering Dr: Speedy Boswell MD PROCEDURE: CTA [...] lobar branches. No focal consolidations. Reading Location: [facility] CC: Dr. Speedy Boswell MD ~ Armoured Car Escort: Signed [facility]06-08-2025 Radiology Diagnostic study note [facility] [address] [place] [address] Chest PA and Lateral MR#: [id number] Acct: [id number] Name: ALBIN ISSA Rep #: [id number] : 1955 M 70 From: Sherif Kolb MD PCP: Dr. Speedy Boswell MD Status: REG E R Study:Chest PA and Lateral Date of Exam: 05/09/25 Exam# [id number] Ordering Dr: Kenneth Redmond DO PROCEDURE: CHEST [...] mild central pulmonary venous congestion. Reading Location: [place] [address] CC: Dr. Speedy Boswell MD; Dr. Kenneth Redmond DO ~ Armoured Car Escort: Signed [facility]06-02-2025 Evaluation note* Diagnosis Onset Date Resolution Status Admit Date CAD (coronary artery disease) chroni c May 03, 2025 2:00pm Essential hypertension chronic Ju 2024 2:00pm ICD (implantable cardioverter-defibrillator) in place August, chronic May 03, 2025 2:00pm Ischemic cardiomyopathy October, chronic May 03, 2025 2:00pm Mixed hyperlipidemia chronic May 03, 2025 2:00pm Obesity (BMI 30-39.9) chronic Sly e 2024 2:00pm [facility][1] Services Work Phone: 1(913) 225-769406-02-2025 Evaluation note* Diagnosis Onset Date Resolution Status Admit Date CAD (coronary artery disease) chronic May 03, 2025 2:00pm Essential hypertension chronic Ju 2024 2:00pm ICD (implantable cardioverter-defibrillator) in place August,May 03, 2025 2:00pm Ischemic cardiomyopathy October,May 03, 2025 2:00pm Mixed hyperlipidemia chronic May 03, 2025 2:00pm Obesity (BMI 30-39.9) chronic May 2:00pm De Quervain's disease (radial styloid tenosynovitis) noneactive June 24, 2025 2:33pm [facility] Work Phone: 1(416) 360-450806-02-2025 Evaluation note* Diagnosis Onset Date Resolution Status [...] (BMI 30-39.9) chronic Jul ust 2024 2:35pm [facility] Work Phone: 1(144) 446-219106-02-2025 Progress [facility] [address] [place], [place] [id number] OFFICE VISIT Date of Service: 05/03/25 MR#: [id number] Acct: [id number] Name: ALBIN ISSA Rep #: [id number] : 1955 Provider: Dr. Fernando Foster MD Age/Sex: 70/M Location: [facility] Status: Signed HPI HPI History of [...] without angina pectoris 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 Automatic implantable [...] epicondylitis of left elbow Left elbow pain intermediate use of drug Lymphedema of Right Leg [...] apical infarct. There is mild global hypokinesis. [place] is dyskinetic. The reported LVEF is 46%. [...] 3. Left main coronary artery: A. Proximal shoshone[place]paiute band without angiographically significant appearing disease 4. [...] the LAD receives predominant flow via the shoshone-paiute system 8. Free SARIAH arising from the [...] Artery/Lesion type: unspecified vessel or lesion type [place] vs. transplanted heart: unspecified whether shoshone-paiute or transplanted heart Associated angina: angina presence unspecified Qualified Code(s): I25.10 - 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 Plan: Status [...] unspecified, unspecified vessel or lesion type,unspecified whether shoshone-paiute or transplanted heart I25.10 Coronary Disease-Associated Artery/Lesion type: unspecified vessel or lesion type [place] vs. transplanted heart: unspecified whether shoshone-paiute or transplanted heart Associated angina: angina presence unspecified Ischemic cardiomyopathy I25.5 ICD (implantable cardioverter-defibrillator) in place Z95.810 Mixed hyperlipidemia E78.2 Essential hypertension I10 Obesity (BMI 30-39.9) E66.9 Coding Level of Care Code Off vis,est,level 4 Diagnoses Atherosclerosis of coronary artery, angina presence unspecified, unspecified vessel or lesion type,unspecified whether shoshone-paiute or transplanted heart I25.10 Coronary Disease-Associated Artery/Lesion type: unspecified vessel or lesion type [place] vs. transplanted heart: unspecified whether shoshone-paiute or transplanted heart Associated angina: angina presence [...] applicable) CC: Dr. Speedy Boswell MD ~ [facility]06-02-2025 Progress note Author Delilah Foster [facility] Note Date/Time May 03, 2025 2:24p [facility] [address] [place], [place] [address] OFFICE VISIT Date of Service: 05/03/25 MR#: [id number] Acct: [id number] Name: ALBIN ISSA Rep #: [id number] : 1955 Provider: Dr. Fernando Fostre MD Age/Sex: 70/M Location: [facility] Status: Signed HPI HPI History of [...] without angina pectoris 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 Automatic implantable [...] epicondylitis of left elbow Left elbow pain ocean transportation intermediary use of drug Lymphedema of Right Leg [...] apical infarct. There is mild global hypokinesis. [place] is dyskinetic. The reported LVEF is 46%. [...] 3. Left main coronary artery: A. Proximal shosh[place]paiute band without angiographically significant appearing disease 4. [...] the LAD receives predominant flow via the shoshone-paiute system 8. Free SARIAH arising from the [...] Artery/Lesion type: unspecified vessel or lesion type [place] vs. transplanted heart: unspecified whether shoshone-paiute or transplanted heart Associated angina: angina presence unspecified Qualified Code(s): I25.10 - 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 Plan: Status [...] unspecified vessel or lesion type, unspecified whether shoshone-paiute or transplanted heart I25.10 Coronary Disease-Associated Artery/Lesion type: unspecified vessel or lesion type [place] vs. transplanted heart: unspecified whether shoshone-paiute or transplanted heart Associated angina: angina presence unspecified Ischemic cardiomyopathy I25.5 ICD (implantable cardioverter-defibrillator) in place Z95.810 Mixed hyperlipidemia E78.2 Essential hypertension I10 Obesity (BMI 30-39.9) E66.9 Coding Level of Care Code Off vis,est,level 4 Diagnoses Atherosclerosis of coronary artery, angina presence unspecified, unspecified vessel or lesion type, unspecified whether shoshone-paiute or transplanted heart I25.10 Coronary Disease-Associated Artery/Lesion type: unspecified vessel or lesion type [place] vs. transplanted heart: unspecified whether shoshone-paiute or transplanted heart Associated angina: angina presence [...] applicable) CC: Dr. Speedy Boswell MD ~ [facility] Work Phone: 1(353) 323-499712-18-2024 [facility] Medical Records Department [address] [place] [address] History Physical Exam 11/18/24 0717 MR#: [id number] Acct: [id number] Name: ALBIN ISSA Rep #: [id number] : 1955 69 From: Ravi Holder MD PCP: Dr. Speedy Boswell MD Status:[facility] Location: [place] [address] HPI - General General Date of Service: [...] to do laser of stones. 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 [facility]04-29-2024 History of Present illness Narrative* Kel Nielsen MD - 03/30/2024 2:00 PM EDT Images from the original note were not included. [facility] [address] [facility] [address] Dept: [phone] Dept Chief Complaint Patient presents with Follow-up [...] prior to signing but 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 documented in this [facility]04-29-2024 Instructions* Patient Instructions* Kel Nielsen MD - [...] call theoffice as soon as possible at [phone] documented in this [facility]02-06-2024 Hospital course Narrative* SHEILA Hilton - 01/07/2024 8:06 AM EST Discharge Summary Name: Albin Issa Age: 68 y.o. Birthday: 1955 Admit Date: 01/06/2024 7:01 AM Discharge Date: 01/07/2024 Discharge Time: 0800 Discharge Unit: [facility] Admission Information Admitting Physician: David Ramirez MD Discharge Information Discharge Provider: Rosio Douglass CNP Problem List Active Hospital Problems Diagnosis Pacemaker lead malfunction Resolved Hospital Problems No resolved problems to display. Brief Summary of Hospital Course for Discharge Summary: Albin Issa is a 68 y.o. male with ICM s/p [facility] DC ICD, CAD s/p AK 2004, s/p CABG 2004, s/p right AKA amputation, HLD. He was evaluated in EP clinic on 11/21/2023 for consultation. He reported occasional dyspnea on exertion. 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 On 11/21/2023, he underwent a venogram revealing [...] s/p [facility] [place] DC ICD, CAD s/p AK 2004, s/p CABG 2004, s/p right AKA amputation, HLD.He was evaluated in EP clinic on 11/21/2023 for consultation. He reported occasional dyspnea on exertion. 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 He underwent successful placement of additional RA lead. Device generator exchanged. Excellent lead parameters. IV Vancomycin is utilized because: Physician/TOP EXECUTIVE/PA or pharmacist documentation of increased MRSA rate, [...] No follow-up provider specified. [facility] Discharge instructions* Discharge Instr - [...] Where can you learn more? Go to [email or web address]. * Discharge Instr - Wound Care* SHEILA [...] during body movement. [facility] NoteIMPRESSION: Limited evaluation. No acute pulmonary finding. Cardiomegaly. RADIOLOGY 01-06-2024 History and physical note* SHEILA Hilton - 01/06/2024 7:13 AM EST Images from the original note were not included. Chief Complaint Dyspnea on exertion HPI Albin Issa is a 68 y.o. male with ICM s/p [facility] [place] DC ICD, CAD s/p AK 2004, s/p CABG 2004, s/p right AKA amputation, HLD. He was evaluated in EP clinic on 11/21/2023 for consultation. He reported occasional dyspnea on exertion. 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 On 11/21/2023, he underwent a venogram revealing [...] and impedance measurements are appropriate. AP 41%. BOROUGH COORDINATOR 7.4%. Device is programmed DDD at 60 bpm. Since last evaluation 09/10/2023, counters reveal no arrhythmia events. Since 11/10/2023, there have been 48 atrial noise events noted. Patient explains that this has been a current issue and due to battery status at EQUIPMENT VALIDATION SPECIALIST, patient is here at [facility] for evaluation of new device and atrial lead extractionand replacement. Isometrics completed, and able to reproduce noise on the atrial lead. The battery status at EQUIPMENT VALIDATION SPECIALIST with voltage of 2.45V (JESSICA is 2.45V). Changes made to the device today: None. All findings given to Dr Ramirez and EP fellow. Patient follows at [facility]. Addendum: per order of Dr [...] and capping of existing lead. -Arrived in [facility] since 1900 -OK to proceed pending [...] as addended by me. David Ramirez MD01/06/2024 [facility]02-05-[facility] History and physical note* Rosio Douglass APRN-GUARD ENTRANCE REGISTRAR - 01/06/2024 7:13 AM EST Images from the original note were not included. Chief Complaint Dyspnea on exertion HPI Albin Issa is a 68 y.o. male with ICM s/p [facility] DC ICD, CAD s/p AK 2004, s/p CABG 2004, s/p right AKA amputation, HLD. He was evaluated in EP clinic on 11/21/2023 for consultation. He reported occasional dyspnea on exertion. 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 On 11/21/2023, he underwent a venogram revealing [...] and impedance measurements are appropriate. AP 41%. BOROUGH COORDINATOR 7.4%. Device is programmed DDD at 60 bpm. Since last evaluation 09/10/2023, counters reveal no arrhythmia events. Since 11/10/2023, there have been 48 atrial noise events noted. Patient explains that this has been a current issue and due to battery status at EQUIPMENT VALIDATION SPECIALIST, patient is here at [facility] for evaluation of new device and atrial lead extractionand replacement. Isometrics completed, and able to reproduce noise on the atrial lead. The battery status at EQUIPMENT VALIDATION SPECIALIST with voltage of 2.45V (JESSICA is 2.45V). Changes made to the device today: None. All findings given to Dr Ramirez and EP fellow. Patient follows at [facility]. Addendum: per order of Dr [...] and capping of existing lead. -Arrived in [facility] since 1900 -OK to proceed pending [...] me. David Ramirez MD01/06/2024 [facility] History of Present illness Narrative* Kel Nielsen MD - 08/26/2023 3:15 PM EDT Images from the original note were not included. [facility] [address] [place] [address] Dept: [phone] Dept Chief Complaint Patient presents with Follow-up [...] prior to signing but 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 documented in this [facility]09-25-2023 Instructions* Patient Instructions* Kel Nielsen MD - [...] call theoffice as soon as possible at [phone] documented in this [facility]03-13-2023 History of Present illness Narrative* Kel Nielsen MD - 02/11/2023 3:20 PM EDT Images from the original note were not included. [facility] [address] [facility] [address] Dept: [phone] Dept Chief Complaint Patient presents with Injection [...] prior to signing but 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 documented in this [facility]03-13-2023 Instructions* Patient Instructions* Kel Nielsen MD - [...] call theoffice as soon as possible at [phone] documented in this [facility]07-01-2021 History of Present illness Narrative* Kenan Jacobsen, RN - 06/01/2021 1:16 AM EDT Pt discharged to [facility] via [facility] on a cot. Pt verified to have all belongings and IV removed. * Agnieszka Longoria RCP - 05/31/2021 10:52 PM EDT [facility] Respiratory Care Department Progress Note [...] Longoria RCP - 05/30/2021 9:15 PM EDT [facility] Respiratory Care Department Progress Note [...] be monitored and followed by the diet process engineering technician. * Sd Moreno PA-C - 05/29/2021 [...] 05/29/2021 3:12 PM EDT Physical Therapy Facility/Department: [facility] Daily Treatment Note NAME: Albin Issa [...] LLE x 10 reps G-Code OutComes Score [facility] Score [facility] Inpatient Mobility Raw Score : 8 (05/29/211513) [facility] Inpatient T-Scale Score : 28.52 (05/29/211513) Mobility [...] off at this time. Please page resident educational psychology teacher with any questions or concerns. Rafy Gloria MD Orthopaedic Surgery PGY-1 *[phone] * Hamilton Mckinnon APRN - NP - [...] happened the patient was bending down to continuous pickling line pickler a delivery box when his Rolatorgot away [...] mg 40 mg Oral BID MARISELA Balderrama RELIGIOUS EDUCATION TEACHER 40 mg at 05/27/211753 enoxaparin (LOVENOX) injection [...] Renny Biswas MD 0.5 mg at 05/25/21 3957 ARE THERE PERTINENT UPDATES TO PAST,FAMILY, OR [...] Date 05/28/21 0000 - 05/28/21 2359 Shift 4819-8885 2970-1085 9065-4247 24 Hour Total INTAKE P.O. 200 200 Shift Total(mL/kg) 200(1.6) 200(1.6) OUTPUT Urine(mL/kg/hr) 800 800 Shift Total(mL/kg) 800(6.3) 800(6.3) Weight (kg) 126.1 126.1 126.1 126.1 Last BM: HEAD HOLDER Diet: Reg CVP: No Chest Tubes: R: [...] Radiology ACCESSION EXAM DATE/TIME PROCEDURE ORDERING PROVIDER [id number] 05/24/2021 17:43 EDT CR Humerus 2+ Views [id number] -SD MORENO CPT code 09087 Reason For Exam (CR Humerus 2+ Views [...] Radiology ACCESSION EXAM DATE/TIME PROCEDURE ORDERING PROVIDER [id number] 05/24/2021 05:59 EDT CR Elbow 3+ Views Left MD FONTANA ALEX CPT code 34631 Reason For Exam (CR Elbow 3+ Views [...] Radiology ACCESSION EXAM DATE/TIME PROCEDURE ORDERING PROVIDER [id number] 05/24/2021 05:59 EDT CR Chest 1 View Frontal MD FONTANA ALEX CPT code 41052 Reason For Exam (CR Chest 1 View [...] (HCC) 05/29/2021 Yes I personally supervised the CORNER BRACE BLOCK MACHINE OPERATOR/ROMEL in the evaluation and development of a [...] updated when appropriate and possible. 66[facility] pmhx of [...] MD Division of Trauma Department of Surgery [facility] Pager: [phone] ~~~~~~~~~~~~~~~~~~~~~~~~~~~~~~~~~~~~~~~~~~~~~~~~~~~~~~~~~~~~~ This note may have been dictated using [employer] [facility] Edition 2.6 and/or [employer] Voice Recognition Feature. The document was proofread; however, unrecognized voice recognition pilot safety inspector errors may be present. * Ruma Ahuja, HEAD HOLDER - 05/27/2021 12:30 PM EDT Physical Therapy Facility/Department: [facility] Daily Treatment Note NAME: Albin Issa [...] Worked on standing posture and placing RUE supervisor throwing department on center handle of hemiwalker and keeping LUE tucked to abdomen. Exercises Hip Flexion: LLE x 10 reps Knee Long Arc Quad: LLE x 10 reps Ankle Pumps: LLE x 10 reps Comments: all while seated in recliner AM-PAC Score [facility] Inpatient Mobility Raw Score : 8 (05/27/21 123) [facility] Inpatient T-Scale Score : 28.52 (05/27/21 [facility]) Mobility Inpatient CMS 0-100% Score: 86.62 (05/27/21 [facility]) Mobility Inpatient [facility] G-Code Modifier : CM (05/27/21 [facility]) Goals Short term goals Time Frame for [...] happened the patient was bending down to continuous pickling line pickler a delivery box when his Rolatorgot away [...] 40 mg 40 mg Oral BID MARISELA aBlderrama NP 40 mg at 05/26/21 1611 enoxaparin [...] Date 05/27/21 0000 - 05/27/21 2359 Shift 8322-7292 7675-1873 4899-7500 24 Hour Total INTAKE P.O. 350 350 Shift Total(mL/kg) 350(2.8) 350(2.8) OUTPUT Urine(mL/kg/hr) 750 750 Shift Total(mL/kg) 750(5.9) 750(5.9) Weight (kg) 126.1 126.1 126.1 126.1 Last BM: HEAD HOLDER Diet: Reg CVP: No Chest Tubes: R: [...] Radiology ACCESSION EXAM DATE/TIME PROCEDURE ORDERING PROVIDER [id number] 05/24/2021 17:43 EDT CR Humerus 2+ Views [id number] -SD MORENO CPT code 20856 Reason For Exam (CR Humerus 2+ Views [...] Radiology ACCESSION EXAM DATE/TIME PROCEDURE ORDERING PROVIDER [id number] 05/24/2021 05:59 EDT CR Elbow 3+ Views Left MD FONTANA ALEX CPT code 75546 Reason For Exam (CR Elbow 3+ Views [...] Result Date: 05/24/2021 [id number] Radiology ACCESSION EXAM DATE/TIME PROCEDURE ORDERING PROVIDER [id number] 05/24/2021 05:59 EDT CR Chest 1 View Frontal MD FONTANA ALEX CPT code 59932 Reason For Exam (CR Chest 1 View [...] pain 05/25/2021 Yes I personally supervised the CORNER BRACE BLOCK MACHINE OPERATOR/ROMEL in the evaluation and development of a [...] MD Division of Trauma Department of Surgery [facility] Pager: [phone] ~~~~~~~~~~~~~~~~~~~~~~~~~~~~~~~~~~~~~~~~~~~~~~~~~~~~~~~~~~~~~ This note may have been dictated using [facility] [employer] [facility] Edition 2.6 and/or [employer] Voice Recognition Feature. The document was proofread; however, unrecognized voice recognition pilot safety inspector errors may be present. * Arabella Dai, HEAD HOLDER - 05/26/2021 1:30 PM EDT Physical Therapy Facility/Department: [facility] Daily Treatment Note NAME: Albin Issa [...] facility policy used during session* Arabella Dai HEAD HOLDER * Sd Moreno PA-C - 05/26/2021 9:45 [...] 05/26/2021 9:14 AM EDT Occupational Therapy Facility/Department: [facility] Daily Treatment Note NAME: Albin Issa [...] happened the patient was bending down to continuous pickling line pickler a delivery box when his Rolatorgot away [...] tablet 60 mg 60 mg Oral BID JAINCE Del CidC 60 mg at 05/25/212099 cetirizine [...] Renny Biswas MD 0.5 mg at 05/25/21 2000 ARE THERE PERTINENT UPDATES TO PAST,FAMILY, OR [...] Date 05/26/21 0000 - 05/26/21 2359 Shift 3779-5017 4462-3873 7880-7029 24 Hour Total INTAKE Shift Total(mL/kg) OUTPUT Urine(mL/kg/hr) 800 800 Shift Total(mL/kg) 800(6.3) 800(6.3) Weight (kg) 126.1 126.1 126.1 126.1 Last BM: HEAD HOLDER Diet: Reg CVP: No Chest Tubes: R: [...] Radiology ACCESSION EXAM DATE/TIME PROCEDURE ORDERING PROVIDER [id number] 05/24/2021 17:43 EDT CR Humerus 2+ Views [id number] -SD MORENO CPT code 98534 Reason For Exam (CR Humerus 2+ Views [...] Radiology ACCESSION EXAM DATE/TIME PROCEDURE ORDERING PROVIDER [id number] 05/24/2021 05:59 EDT CR Elbow 3+ Views Left MD FONTANA ALEX CPT code 22786 Reason For Exam (CR Elbow 3+ Views [...] Radiology ACCESSION EXAM DATE/TIME PROCEDURE ORDERING PROVIDER [id number] 05/24/2021 05:59 EDT CR Chest 1 View Frontal MD FONTANA ALEX CPT code 55347 Reason For Exam (CR Chest 1 View [...] pain 05/25/2021 Yes I personally supervised the CORNER BRACE BLOCK MACHINE OPERATOR/MIKA-C in the evaluation and development of a [...] MD Division of Trauma Department of Surgery [facility] Pager: [phone] ~~~~~~~~~~~~~~~~~~~~~~~~~~~~~~~~~~~~~~~~~~~~~~~~~~~~~~~~~~~~~ This note may have been dictated using [employer] Edition 2.6 and/or [employer] Voice Recognition Feature. The document was proofread; however, unrecognized voice recognition pilot safety inspector errors may be present. * Carol Ascencio MD - 05/26/2021 6:34 AM EDT Images from the original note were not included. [facility] [address] [facility] [address] Dept: [phone] Loc: [phone] Orthopedic Progress Note Name: Albin Issa Date:05/26/2021 [...] distally LUE Strength LUE Strength Comment: 3/5 supervisor throwing department RUE Strength RUE Strength Comment: 3-/5 shoulder, 4/5 supervisor throwing department Plan Plan Times per week: 5 Plan weeks: 4 Current Treatment Recommendations: Strengthening, Gait Training, Patient/Caregiver Education & Training, Equipment Evaluation, Education, & procurement, ROM, Balance Training, Functional Mobility Training, Endurance Training, Safety Education & Training, Self-Care / ADL, Pain Management, Stair training OutComes Score [facility] Daily Activity Inpatient How much help [...] How much help for eating meals?: None [facility] Inpatient Daily Activity Raw Score: 16 [facility] Inpatient ADL T-Scale Score : 35.96 [...] Plan of Care [facility]. Pt requires skill of 2 therapists for safety and positioning. Avni Jones, S/OT * Maria L Jeffers, PT - 05/25/2021 11:07 AM EDT Physical Therapy Facility/Department: [facility] Initial Assessment NAME: Albin Issa : [...] Subjective: Patient lying in bed upon arrival, assistant director of nursing finishing assessing vitals. Patient pleasant and agreeable [...] place: No G-Code OutComes Score AM-PAC Score [facility] Inpatient Mobility Raw Score : 8 (05/25/21 1107) [facility] Inpatient T-Scale Score : 28.52 (05/25/21 1107) Mobility Inpatient CMS 0-100% Score: 86.62 (05/25/21 1107) Mobility Inpatient [facility] G-Code Modifier : CM (05/25/21 110) Goals [...] Plan of Care supervision is transferred to [facility] Rehab Department Physical Therapist. * Kacy Soto DTR - 05/25/2021 8:40 AM EDT Nutrition rescreen completed. Chart reviewed. Patient to be monitored and followed by the diet process engineering technician. * Stephanie Ying APRN - KEYSHA [...] happened the patient was bending down to continuous pickling line pickler a delivery box when his Rolatorgot away [...] Temporal 63 18 97 % Last BM: HEAD HOLDER Diet: Reg CVP: No Chest Tubes: R: [...] Radiology ACCESSION EXAM DATE/TIME PROCEDURE ORDERING PROVIDER [id number] 05/24/2021 17:43 EDT CR Humerus 2+ Views [id number] NORWOOD CPT code 95044 Reason For Exam (CR Humerus 2+ Views [...] Radiology ACCESSION EXAM DATE/TIME PROCEDURE ORDERING PROVIDER [id number] 05/24/2021 05:59 EDT CR Elbow 3+ Views Left MD FONTANA ALEX CPT code 44369 Reason For Exam (CR Elbow 3+ Views [...] Radiology ACCESSION EXAM DATE/TIME PROCEDURE ORDERING PROVIDER [id number] 05/24/2021 05:59 EDT CR Chest 1 View Frontal MD FONTANA ALEX CPT code 80939 Reason For Exam (CR Chest 1 View [...] cardiomyopathy 05/25/2021 Yes I personally supervised the CORNER BRACE BLOCK MACHINE OPERATOR/ROMEL in the evaluation and development of a [...] MD Division of Trauma Department of Surgery [facility] Pager: [phone] ~~~~~~~~~~~~~~~~~~~~~~~~~~~~~~~~~~~~~~~~~~~~~~~~~~~~~~~~~~~~~ This note may have been dictated using [employer] [facility] Edition 2.6 and/or [employer] Voice Recognition Feature. The document was proofread; however, unrecognized voice recognition pilot safety inspector errors may be present. * Carol Ascencio MD - 05/25/2021 6:15 AM EDT Images from the original note were not included. [place] [address] [facility] [address] [place] [address] Dept: [phone] Loc: [phone] Orthopedic Progress Note Name: Albin Issa Date:05/25/2021 [...] EDT Patient to be transported back to [facility]. Telephone report given to JUANCHO Wells [...] eGFR 88.3 >60 mL/min EGFR IF NonAfrican Togolese 76.2 >60 mL/min Calcium 9.3 8.4 - [...] # 1.3 1.0 - 4.3 10*3/uL Absolute [place] # 0.5 0.0 - 0.8 10*3/uL Absolute [...] team -Ortho to follow documented in this [facility] Work Phone: 1(341) 456-260006-30-2021 Hospital Discharge instructions* Discharge Instr - Activity* [...] most local grocery stores, pharmacies, and chain [employer]stores. If you have any questions about your diet or nutrition, call the hospital and ask for the dietitian. Regular diet * Discharge Instr - MICHAELA* Hamilton Mckinnon, CORNER BRACE BLOCK MACHINE OPERATOR - RELIGIOUS EDUCATION TEACHER - 05/25/2021 12:30 PM EDT Continuity of [...] BOSWELL MD Discharging Nurse: Discharging Hospital Unit/Room#: [id number] Discharging Unit Phone Number: Emergency Contact: Extended [...] S/P AKA (above knee amputation), right ([facility]) Z89.611 MRSA (methicillin resistant Staphylococcus aureus) infection [...] MENTAL STATUS::::0} IV Access: { MICHAELA IV ACCESS:686356793:::0} Nursing Mobility/ADLs: Walking {CHP DME ADLs:418720279:::0} Transfer {CHP DME ADLs:679305374:::0} Bathing {CHP DME ADLs:556704259:::0} Dressing {CHP DME ADLs:049349338:::0} Toileting {CHP DME ADLs:093623528:::0} Feeding {CHP DME ADLs:024814651:::0} Injection Operator {CHP DME ADLs:352450719:::0} Med Delivery { MICHAELA MED Delivery:355741834:::0} Wound Care Documentation and Therapy: Negative Pressure Wound Therapy Leg Right;Upper (Active) Number of days: 762 Elimination: Continence: Bowel: {YES / NO:} Bladder: {YES / NO:} Urinary Catheter: {Urinary Catheter:793556565:::0} Colostomy/Ileostomy/Ileal Conduit: {YES / NO:} Date of Last BM: No intake or output data in the 24 hours ending 05/25/21 1230 No intake/output data recorded. Safety Concerns: { MICHAELA Safety Concerns:603954185:::0} Impairments/Disabilities: { MICHAELA Impairments/Disabilities:145911493:::0} Nutrition Therapy: Current Nutrition Therapy: { MICHAELA Diet List:269210459:::0} Routes of Feeding: {CHP DME Other Feedings:467427653:::0} Liquids: {Operations Vice President liquid thickness:15345} Daily Fluid Restriction: {CHP DME Yes amt example:379110672:::0} Last Modified Barium Swallow with Video (Video Swallowing Test): {Done Not Done Date:251899540:::0} Treatments at the Time of Hospital Discharge: Respiratory Treatments: Oxygen Therapy: {Therapy; copd oxygen:60196:::0} Ventilator: {[facility] Vent List:894533494:::0} Rehab Therapies: {THERAPEUTIC INTERVENTION:8190156103} Weight Bearing Status/Restrictions: {[facility] Weight Bearin:::0} Other Medical Equipment (for information only, NOT a DME order): {EQUIPMENT:071309114} Other Treatments: Patient's personal belongings (please select all that are sent with patient): {CHP DME Belongings:999598830:::0} RN SIGNATURE: {Esignature:836640665:::0} CASE MANAGEMENT/SOCIAL WORK SECTION Inpatient Status Date: 05-23-21 Readmission Risk Assessment Score: Readmission Risk Risk of Unplanned Readmission: 10 Discharging to Facility/ Agency Name: [facility] Address:[address] [place] [address] Dialysis Facility (if applicable) Name: Address: Dialysis Schedule: Phone: Fax: Android Framework Developer/Hot Car Operator signature: PHYSICIAN SECTION Prognosis: Good Condition at Discharge: Stable Rehab Potential (if transferring to Rehab): Good Recommended Labs or Other Treatments After Discharge: None Physician Certification: I certify the above information and transfer of Albin Issa is necessary for the continuing treatment of the diagnosis listed and that he requires [facility] for less 30 days. Update Admission [...] have anyproblems or questions. documented in this [facility] Work Phone: 1(990) 306-379108-02-2017 Fall risk gihrewitdm9756/08/02[facility]Fall [facility] Surgery Work Phone: 1(235) 276-592907-14-2017 Fall risk nhlfhzdyen6659/07/14[facility] NoFall risk assessmentWselect specialty hospital Heart Group Work Phone: 1(578) 573-581706-14-2017 Fall risk khggffpkel0300/06/14[facility] NoFall risk [facility]Wselect [facility] hospital Infectious Disease Work Phone: 1(144) 726-230605-31-2017 Fall risk hvyfwafmmf1485/05/31[facility] Infect[facility] Disease Work Phone: [phone]) 454-989509-01-2010 Evaluation note* Diagnosis Onset Date Resolution Status Atherosclerotic heart diseas e of shoshone-paiute coronary artery without angina pectoris chronic Chronic systolic congestive heart failure chronic Essential hypertension chron ic ICD (implantable cardioverte r-defibrillator) in place August, chronic Ischemic cardiomyopathy repairer leandra Mixed hyperlipidemia chronic Postsurgical aortocoronary bypass status June, chronic Automatic implantable cardio verter-defibrillator in situ chronic Chronic systolic congestive heart failure chronic Ischemic cardiomyopathy [facility] Work Phone: [phone] 684-181509-01-2010 Evaluation note* Diagnosis Onset Date Resolution Status Atherosclerotic heart diseas e of shoshone[place]pai[place] coronary artery without angina pectoris chronic Chronic systolic congestive heart failure chronic Essential hypertension chron ic ICD (implantable cardioverte r-defibrillator) in place August, chronic Ischemic cardiomyopathy repairer leandra Mixed hyperlipidemia chronic Postsurgical aortocoronary bypass status June, chronic Automatic implantable cardio verter-defibrillator in situ chronic Chronic systolic congestive heart failure chronic Ischemic cardiomyopathy repairer leandra Automatic implantable cardio verter-defibrillator in situ chronic Chronic systolic congestive heart failure chronic ICD (implantable cardioverte r-defibrillator) in place August, chronic Ischemic cardiomyopathy [facility] Work Phone: [phone] 245-291409-01-2010 Evaluation note* Diagnosis Onset Date Resolution Status Automatic implantable cardio verter-defibrillator in situ chronic Chronic systolic congestive heart failure chronic ICD (implantable cardioverte r-defibrillator) in place August, chronic Ischemic cardiomyopathy [facility] Work Phone: [phone]) 798-537909-01-2010 Evaluation note* Diagnosis Onset Date Resolution Status Automatic implantable cardio verter-defibrillator in situ chronic ICD (implantable cardioverte r-defibrillator) in place August, chronic Ischemic cardiomyopathy [facility] Work Phone: [phone]) 988-844009-01-2010 Evaluation note* Diagnosis Onset Date Resolution Status Chronic systolic congestive heart failure chronic ICD (implantable cardioverte r-defibrillator) in place August, chronic Ischemic cardiomyopathy repairer leandra CAD (coronary artery disease) chronic Essential hypertension chron ic ICD (implantable cardioverte r-defibrillator) in place August, chronic Ischemic cardiomyopathy repairer leandra Mixed hyperlipidemia chronic Obesity (BMI 30-39.9) chroni c [facility] Work Phone: [phone]) 217-326509-01-2010 Evaluation note* Diagnosis Onset Date Resolution Status CAD (coronary artery disease) chronic Essential hypertension chron ic ICD (implantable cardioverte r-defibrillator) in place August, chronic Ischemic cardiomyopathy October, ch ronic Mixed hyperlipidemia chronic Obesity (BMI 30-39.9) chroni c CAD (coronary artery disease) chronic ICD (implantable cardioverte r-defibrillator) in place August, [facility] Work Phone: [phone]) 256-509609-01-2010 Evaluation note* Diagnosis Onset Date Resolution Status CAD (coronary artery disease) chronic ICD (implantable cardioverte r-defibrillator) in place August, [facility] Work Phone: [phone]) 998-476009-01-2010 Evaluation note* Diagnosis Onset Date Resolution Status [...] Obesity (BMI 30-39.9) chronic Sly 2024 2:00pm [facility] Work Phone: Evaluation note* Diagnosis Acute traumatic pain- Primary Acute pain due to trauma Closed fracture of lower epiphysis of humerus Closed fracture of unspecified condyle(s) of humerus Left supracondylar humerus fracture, closed, initial encounter Ischemic cardiomyopathy Other specified forms of chronic ischemic heart disease Chronic systolic congestive heart failure (HCC) Chronic systolic heart failure documented in this encounter [facility] Work Phone: Evaluation note* Diagnosis Onset Date Resolution Status Lateral epicondylitis of left elbow acute Left elbow pain acute Atherosclerotic heart diseas e of shosh[place]pai[place] coronary artery without angina pectoris chronic Chronic systolic congestive heart failure chronic Essential hypertension chron ic ICD (implantable cardioverte r-defibrillator) in place August, chronic Ischemic cardiomyopathy repairer leandra Mixed hyperlipidemia chronic Postsurgical aortocoronary bypass status June, chronic Automatic implantable cardio verter-defibrillator in situ chronic Chronic systolic congestive heart failure chronic Ischemic cardiomyopathy repairer leandra [facility] Work Phone: Evaluation note* Diagnosis Arthritis of left subtalar joint [facility] Diagnosis ICD (implantable cardioverter-defibrillator) battery depletion Pacemaker lead malfunction Mechanical complication due to cardiac pacemaker (electrode) ICD (implantable cardioverter-defibrillator) battery depletion [facility] Diagnosis [facility]thritis of left subtalar joint [facility] Diagnosis Arthritis of left subtalar joint [facility] Additional Instructions You have a virus. Plenty of fluids and rest. Prednisone as needed for wheezing. Follow-up with your doctor if not improving or return if worse.[facility] Work Phone: Hospital Discharge instructions Additional Instructions Cardiac workup including D-dimer negative. Chest x-ray negative. BNP normal. Continue your home medications. Follow-up with your cardiology team for treatment as plan. You develop recurrent worsening symptoms, return to the ED for reevaluation.[facility] [facility] Work Phone: Reason for referral (narrative)No reason for referral [facility]: Summary Purpose Family History [...] FoundDocuments on File Type Date Recorded Patient Radar Operator Expl anation ACP-Advance Directive ACP-Power of Class B Truck Driver Latest Code Status on File Code Status [...] Will Yes January 15 11:11pm Power of Class B Truck Driver Yes January 15, 2022 11:11pm Advance Directive Response Recorded Date/ Time Advance Directives No December 31, 2015 6:47pm Living Will Yes January 15 10:11pm Power of Class B Truck Driver Yes January 15, 2022 10:11pm Advance Directive Response Recorded Date/ Time Name of Medical Power of Class B Truck Driver DAUGHTER AND S ON October 27, 2022 4:09pm Advance Directives No December 31, 2015 6:47pm Living Will Yes October 27 4:09pm Power of Class B Truck Driver Yes October 27, 2022 4:09pm Advance Directive Response Recorded Date/ Time Advance Directives No December 31, 2015 7:47pm Living Will Yes October 27 5:09pm Power of Class B Truck Driver Yes October 27, 2022 5:09pm Latest Code [...] Will Yes October 27 4:09pm Power of Class B Truck Driver Yes October 27, 2022 4:09pm Advance Directive Response Recorded Date/ Time Living Will Yes October 27 5:09pm Do you have a Healthcare Power of Class B Truck Driver? Yes October 27, 2022 5:09pm Advance Directives No December 31, 2015 7:47pm Advance Directive Response Recorded Date/ Time Living Will Yes October 27 5:09pm Do you have a Healthcare Power of Class B Truck Driver? Yes October 27, 2022 5:09pm Do you have a Healthcare Power of Class B Truck Driver? No May 09, 2025 12:06am Advance Directives No December 31, 2015 7:47pm Advance Directive Response Recorded Date/ Time Do you have a Healthcare Power of Class B Truck Driver? No May 09, 2025 12:06am Advance Directives No December 31, 2015 7:47pm Chief Complaint and Reason for Visit Chief Complaint flank pain sees JEFFRY@2:30 PRE-OP EORDER- ANKLE EORDER Reason for Visit Atherosclerotic hear t disease of [place] coronary artery without angina pectoris Chronic systolic congestive heart failure Essential hypertension ICD (implantable cardioverter-defibrillator) in place Ischemic cardiomyopathy Mixed hyperlipidemia Postsurgical aortocoronary bypass status Automatic implantable cardioverter-defibrillator in situ Chronic systolic congestive heart failure Ischemic cardiomyopathy Chief Complaint sees JEFFRY@2:30 PRE-OP EORDER- ANKLE EORDER 3 MO CK LT ANKLE OSTEOARTHRITIS Reason for Visit Atherosclerotic hear t disease of [place] coronary artery without angina pectoris Chronic systolic [...] Left elbow pain 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 Chronic systolic [...] Left elbow pain 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 Chronic systolic [...] PACEMAKER/ICD INTERROGATION David Ramirez MD [address] [place] [phone] Referral ID Status Reason Start Date Expiration Date V isits Requested Visits Authorized [id number] New Request 01/06/2024 01/30/2025 1 1 Specialty Diagnoses / Procedures Referred By Contac t Referred To Contact Procedures NO PHARMACOLOGICAL DVT PROPHYLAXIS Rosio Douglass, CORNER BRACE BLOCK MACHINE OPERATOR-GUARD ENTRANCE REGISTRAR [address] [place] [phone] Referral ID Status Reason Start Date Expiration Date V isits Requested Visits Authorized [id number] New Request 01/06/2024 01/30/2025 1 1 Specialty Diagnoses / Procedures Referred By Contac t Referred To Contact Procedures DVT/VTE RISK ASSESSMENT Rosio Douglass, CORNER BRACE BLOCK MACHINE OPERATOR-GUARD ENTRANCE REGISTRAR [address] [place] [phone] Referral ID Status Reason Start Date Expiration Date V isits Requested Visits Authorized [id number] New Request 01/06/2024 01/30/2025 1 1 Specialty Diagnoses / Procedures Referred By Contac t Referred To Contact Procedures Wilda Green, CORNER BRACE BLOCK MACHINE OPERATOR-GUARD ENTRANCE REGISTRAR [address] [place], [place] [id number] Referral ID Status Reason Start Date Expiration Date V isits Requested Visits Authorized [id number] New Request 01/06/2024 01/30/2025 1 1 Additional Source Comments (unrecognized sect ion and content) No Status Records FoundNo Status Records FoundNo Status Records FoundNo Status Records FoundNo Status Records FoundNo Status Records FoundNo Status Records Found INFORMATION SOURCE (unrecogn ized section and content) DATE CREATED AUTHOR 04/20/2020 [facility] DATE CREATED AUTHOR AUTHOR'S ORGANIZ ATION 06/02/2021 [facility] [employer] DATE CREATED AUTHOR AUTHOR'S ORGANIZ ATION 06/11/2021 [facility] DATE CREATED AUTHOR AUTHOR'S ORGANIZ ATION 03/09/2022 [facility] ([place]) DATE CREATED AUTHOR AUTHOR'S ORGANIZ ATION 01/16/2024 [facility] DATE CREATED AUTHOR AUTHOR'S ORGANIZ ATION 03/31/2024 [facility] DATE CREATED AUTHOR AUTHOR'S ORGANIZ ATION 07/20/2025 [facility] Ordered Prescriptions (unrec ognized section and content) [...] Henry RN) 921 (Given - Provider: Haylee Abdullaih RN)1947 (Given - Provider: Kenan Jacobsen RN) [...] María Henry RN) 09 (Given - Provider: aHylee Abdullahi RN)1946 (Given - Provider: Kenan Jacobsen [...] 1,500 mg, Intravenous, Administer over 1 Hours, TOUCH UP PAINTER HAND TO PROCEDURE, 1 dose, Starting on Sat01/06/24 at 0000, Until Discontinued, Other, Preoperative antibiotic, Order should be timed for day of procedure. 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 Vancomycin is preferred agent [...] MD Primary Care Provider Active Radha Sanches RELIGIOUS EDUCATION TEACHER-C Attending Provider Active Life Skills Coordinator Volunteer Relationship Specialty Start Date End Date Speedy Boswell MD [address] [place] [phone] PCP - General 01/19/19 Team Status: Inactive [...] Primary Care Provider Active Jeffry Rosado NP, RELIGIOUS EDUCATION TEACHER-C Attending Provider Active Team Status: Inactive Member Role Status Dates Dr. Speedy Boswell MD Primary Care Provider Active Dr. Delilah Foster MD Attending Provider, Referring Pr ovider Active Life Skills Coordinator Volunteer Relationship Specialty Start Date End Date Speedy Boswell MD [address] [place], [place] [phone] PCP - General Family Medicine 11/21/23 Delilah Foster MD [address] [place], [place] [id number] Cardiovascular Disease 09/11/23 Life Skills Coordinator Volunteer Relationship Specialty Start Date End Date Speedy Boswell MD [address] [place], [place] [phone] PCP - General Family Medicine 11/21/23 Delilah Foster MD [address] [facility] [address] [place] [address] Cardiovascular Disease 09/11/23 Team Status: Inactive Member [...] Cazares DO Attending Provider, Referring Provider Active Life Skills Coordinator Volunteer Relationship Specialty Start Date End Date Speedy Boswell MD [address] [facility] [address] [place] [phone] PCP - General 01/19/19 Life Skills Coordinator Volunteer Relationship Specialty Start Date End Date Speedy Boswell MD [address] [facility] [address] [place] [phone] PCP - General 01/19/19 Team Status: Active [...] 2025 End: July 02, 2025 David Still RELIGIOUS EDUCATION TEACHER, RELIGIOUS EDUCATION TEACHER-C Attending Provider Active S tart: July 02, 2025 End: July 02, 2025 David Still NP, RELIGIOUS EDUCATION TEACHER-C Referring Provider Active S tart: July 02, 2025 End: July 02, 2025 Team Status: Inactive Member Role/Relationship Status Dates Dr. Speedy Boswell MD Primary Care Provider Active Start: July 19, 2025 End: July 19, 2025 Dr. Speedy Boswell MD Referring Provider Active Start: July 19, 2025 End: July 19, 2025 David Still RELIGIOUS EDUCATION TEACHER, RELIGIOUS EDUCATION TEACHER-C Attending Provider Active S tart: July 19, 2025 End: July 19, 2025 Reason for Visit (unrecogniz ed section and content) Reason Comments Follow-up [facility] left subtalar haile int injection Specialty Diagnoses / Procedures Referred By Contac t Referred To Contact Diagnoses Venous (peripheral) insufficiency Venous (peripheral) insufficiency [I87.2] Procedures IN INJECTION PROC,EXTREMITY,VENOGRAPHY VENOGRAM David Ramirez MD [address] [place] [phone] [facility] [address] [place] [phone] Referral ID Status Reason Start Date Expiration Date Visits Re quested Visits Authorized [id number] 1 1 Specialty Diagnoses / Procedures Referred By Contac t Referred To Contact Diagnoses ICD (implantable cardioverter-defibrillator) battery depletion ICD (implantable cardioverter-defibrillator) battery depletion [Z45.02] Procedures IN RMVL IMPLTBL DFB PLSE GEN W/REPL PLSE GEN 1 LEAD IN INSJ 1 TRANSVNS ELTRD PERM PACEMAKER/IMPLTBL DFB ICD GENERATOR CHANGEOUT LEAD INSERTION Justin Pittman MD [address] [place] [phone] [facility] [address] [place] [phone] Referral ID Status Reason Start Date Expiration Date Visits Re quested Visits Authorized [id number] 1 1 Reason Comments Follow-up [facility] left [...] BE BASED ON THE PRIMARY CLINICAL RECORDS. [employer] provides no warranty or guarantee of the accuracy or completeness of information in this document.
[2025-08-09 01:39] LABS: Magnesium 1.7 mg/dL (1.5-2.2)
[2025-08-09 02:03] VITALS: RESP 20; BMI 41.1
[2025-08-09 02:28] VITALS: BP 142/82; PULSE 68; RESP 20; TEMP 36.8; O2SAT 98
[2025-08-09] MEDS: Arthritis Pain Compound 60 CLICK TUBE TOPICAL ×2 (02:53→09:13)
[2025-08-09 03:06] LABS: Procalcitonin 0.18 ng/mL (<=0.10)
--- NOTE | 2025-08-09 03:35 | CPS ---
Patient refuses at this time
[2025-08-09 06:00] VITALS: BMI 40.9
[2025-08-09 06:43] LABS: Hematocrit 38.7 % (40-54); Hemoglobin 13.1 g/dL (13.0-16.5); Immature Granulocytes Count 0.030 X10^3/uL (0.0-0.0); Mean Corp Hgb Conc 33.9 g/dL (32-36); Mean Corpuscular Volume 89.4 fL (80-94); Mean Platelet Vol. 9.7 fl (6.2-12.0); NRBC Flagged by Analyzer 0 % (0-5); Platelet Count 163 K/mm3 (150-450); RBC Distribution Width CV 13.7 % (11.6-14.6); RBC Distribution Width SD 44.7 fl (35.1-43.9); Red Blood Count 4.33 M/mm3 (4.6-6.2); White Blood Count 4.7 K/mm3 (4.4-11.0)
--- NOTE | 2025-08-09 08:23 | PN.HOSP_ITS ---
Reason for Visit Chief Complaint: Intractable L knee pain, unable to ambulate. Subjective Subjective Left knee is feeling better. Still has pain but overall much better than it has been previously. Objective Data Objective Data Vital Signs: Vital Signs Temp Pulse Resp BP Pulse Ox O2 Del Method 36.8 C 68 20 H 142/82 H 98 Room Air 08/09/25 02:28 08/09/25 02:28 08/09/25 02:28 08/09/25 02:28 08/09/25 02:28 08/09/25 02:28 Oxygen Delivery Method Room Air Weight: 122.6 kg Body Mass Index (BMI) 40.9 Intake & Output: Intake and Output for Last 24 Hours 08/07/25 08/08/25 08/09/25 23:59 23:59 23:59 Output Total 200 / 200 Balance -200 / -200 Lab / Micro Data 08/09/25 05:52 08/09/25 07:40 Labs: Laboratory Results - last 24 hr 08/08/25 22:51: WBC 6.2, RBC 4.61, Hgb 14.3, Hct 41.6, MCV 90.2, MCH 31.0, MCHC 34.4, RDW Std Deviation 44.8 H, RDW Coeff of Ang 13.6, Plt Count 154, MPV 9.4, Immature Gran % (Auto) 0.600, Neut % (Auto) 74.4 H, Lymph % (Auto) 12.7 L, [place] % (Auto) 11.1 H, Eos % (Auto) 0.6, Baso % (Auto) 0.6, Absolute Neuts (auto) 4.6, Absolute Lymphs (auto) 0.79 L, Nucleated RBC % 0, ESR 15, Sodium 136, Potassium 4.7, Chloride 104, Carbon Dioxide 21.1, Anion Gap 11, BUN 15, Creatinine 1.21 H, Estim Creat Clear Calc 75.42, Est GFR (MDRD) Non-Af 64, BUN/Creatinine Ratio 12.2, Glucose 106 H, Lactic Acid 1.9, Calcium 10.0, Magnesium 1.7, C-React Prot Ext Range 46.50 H, Procalcitonin 0.18 H 08/09/25 02:56: POC Glucose 137 H 08/09/25 05:52: WBC 4.7, RBC 4.33 L, Hgb 13.1, Hct 38.7 L, MCV 89.4, MCH 30.3, MCHC 33.9, RDW Std Deviation 44.7 H, RDW Coeff of Ang 13.7, Plt Count 163, MPV 9.7, Immature Gran % (Auto) 0.600, Neut % (Auto) 64.5, Lymph % (Auto) 22.0, [place] % (Auto) 10.2 H, Eos % (Auto) 1.9, Baso % (Auto) 0.8, Absolute Neuts (auto) 3.0, Absolute Lymphs (auto) 1.04, Nucleated RBC % 0, ESR 13, Sodium Cancelled, Potassium Cancelled, Chloride Cancelled, Carbon Dioxide Cancelled, Anion Gap Cancelled, BUN Cancelled, Creatinine Cancelled, Estim Creat Clear Calc Cancelled, Est GFR (MDRD) Non-Af Cancelled, BUN/Creatinine Ratio Cancelled, Glucose Cancelled, Calcium Cancelled, Total Bilirubin Cancelled, AST Cancelled, ALT Cancelled, Alkaline Phosphatase Cancelled, C-React Prot Ext Range Cancelled, Total Protein Cancelled, Albumin Cancelled, Globulin Cancelled, Albumin/Globulin Ratio Cancelled 08/09/25 06:47: POC Glucose 118 H Radiography Diagnostic Testing: Radiology Impression Knee X-Ray 08/08/25 23:00 IMPRESSION: As above. Reading Location: [facility] Physical Exam Const alert and no apparent distress Constitutional Narrative: Up in chair. Nontoxic. HEENT head/scalp atraumatic and moist oral mucous membranes Extremity Extremity Narrative: Right lower extremity prosthetic in place. Left knee with slight effusion but no warmth and no reproducible tenderness upon palpation. Assessment & Plan Assessment/Plan (1) Intractable neuropathic pain of left knee: PLAN: Plan Left knee severe pain * Improved. Likely secondary to osteoarthritis. * Will discharge with increasing his gabapentin from 300 daily to 3 times daily. Short course of oxycodone and scheduled acetaminophen and prednisone burst. * If has ongoing issues then patient to follow-up with [place] [facility] for further evaluation of whether not he would need further injections or if he needs to be considered for knee arthroplasty. Chronic medical conditions: * HFpEF: Status post AICD, most recent noted echocardiogram 06/10/2025 with apical akinesis, posterior basal hypokinesis, estimated LVEF 35% with stage I diastolic dysfunction although difficult study, will only judiciously hydrate if absolutely necessary, continue aspirin, Plavix, statin, Coreg, ramipril, spironolactone and Lasix home regimen. * Diabetes mellitus type II with chronic neuropathy: Hold oral home regimen, continue home gabapentin regimen, ADA diet, accu checks w/ ISS. * CAD: Status post PCI and CABG (PTCA/stent to prox LAD 02/02/05; PTCA/stent instent restenosis of prox LAD 10/15/13 and CABG x2- PARK to LAD, SARIAH to OM 06/01/05), continue aspirin, Plavix, statin, Coreg, ramipril home regimen. * Hypertension: Continue home regimen including spironolactone, ramipril, Lasix, Coreg with hold parameters as needed, PRN hydralazine. * Hyperlipidemia: Will continue patient on statin therapy. * BPH with obstructive pathology: Will continue patient home finasteride regimen, monitor for retention. * Morbid Obesity: Weight loss and lifestyle changes encouraged. * TARAN: CPAP nightly. DVT prophylaxis: Lovenox. [place] home with home health care services.
[2025-08-09 09:05] VITALS: BP 104/65; PULSE 62; RESP 18; TEMP 36.5; O2SAT 98
[2025-08-09] MEDS: Potassium Chloride Oral Tablet 20 MEQ PO (09:13)
[2025-08-09 09:16] LABS: AST(SGOT) 18 U/L (<=37); Alanine Aminotransfer ALT/SGPT 17 U/L (<=46); Albumin, Serum 3.5 g/dL (3.4-4.8); Alkaline Phosphatase 102 U/L (40-129); Anion Gap 10 (5-15); BUN 18 mg/dL (4-19); BUN/Creat Ratio 16.4 RATIO (10-20); CRP 57.00 mg/L (0.0-3.0); Calcium,Total 9.4 mg/dL (7.6-11.0); Carbon Dioxide 19.0 mmol/L (21.0-32.0); Chloride 107 mmol/L (98-108); Estimated Creatinine Clearance 78.90 ml/min (50-250); Globulin 2.4 g/dL (2.2-4.2); Glucose 106 mg/dL (70-99); Potassium 3.9 mmol/L (3.3-5.1)
--- NOTE | 2025-08-09 11:11 | DS.PCM_ITS ---
Providers Date of Admission: 08/09/25 Primary Care Physician: Dr. Speedy Boswell MD Reason For Visit: INTRACTABLE L KNEE PAIN, ADULT FTT Diagnosis Discharge Diagnosis (1) Intractable neuropathic pain of left knee: Status: Acute Code(s): M79.2 - Neuralgia and neuritis, unspecified Plan Left knee severe pain * Improved. Likely secondary to osteoarthritis. * Will discharge with increasing his gabapentin from 300 daily to 3 times daily. Short course of oxycodone and scheduled acetaminophen and prednisone burst. * If has ongoing issues then patient to follow-up with [place] [facility] for further evaluation of whether not he would need further injections or if he needs to be considered for knee arthroplasty. Chronic medical conditions: * HFpEF: Status post AICD, most recent noted echocardiogram 06/10/2025 with apical akinesis, posterior basal hypokinesis, estimated LVEF 35% with stage I diastolic dysfunction although difficult study, will only judiciously hydrate if absolutely necessary, continue aspirin, Plavix, statin, Coreg, ramipril, spironolactone and Lasix home regimen. * Diabetes mellitus type II with chronic neuropathy: Hold oral home regimen, continue home gabapentin regimen, ADA diet, accu checks w/ ISS. * CAD: Status post PCI and CABG (PTCA/stent to prox LAD 02/02/05; PTCA/stent instent restenosis of prox LAD 10/15/13 and CABG x2- PARK to LAD, SARIAH to OM 06/01/05), continue aspirin, Plavix, statin, Coreg, ramipril home regimen. * Hypertension: Continue home regimen including spironolactone, ramipril, Lasix, Coreg with hold parameters as needed, PRN hydralazine. * Hyperlipidemia: Will continue patient on statin therapy. * BPH with obstructive pathology: Will continue patient home finasteride regimen, monitor for retention. * Morbid Obesity: Weight loss and lifestyle changes encouraged. * TARAN: CPAP nightly. DVT prophylaxis: Lovenox. [place] home with home health care services. Medications at Discharge Home Medications aspirin 81 mg chewable tablet 81 mg PO QHS Heart health 06/09/17 temazepam 15 mg capsule 15 mg PO QHS PRN Sleep 09/21/20 trazodone 50 mg tablet 50 mg PO QHS sleep 03/22/21 escitalopram oxalate 20 mg tablet 20 mg PO DAILY 08/20/22 multivitamin (Daily Multi-Vitamin tablet) 1 tab PO DAILY 05/27/24 pantoprazole 40 mg tablet,delayed release 40 mg PO DAILY gerd #90 tabs 09/21/24 clopidogrel 75 mg tablet (Plavix) 75 mg PO DAILY blood clots #90 tabs 10/12/24 acetaminophen 500 mg tablet 1,000 mg PO Q8 PRN fever or pain 10/21/24 desloratadine 5 mg tablet 5 mg PO DAILY PRN allergy symptoms 10/21/24 finasteride 5 mg tablet 5 mg PO DAILY 10/21/24 dapagliflozin propanediol 10 mg tablet (Farxiga) 10 mg PO DAILY #90 tabs 12/10/24 carvedilol 25 mg tablet 25 mg PO BID heart #180 tabs 12/25/24 ramipril 10 mg capsule 10 mg PO DAILY #90 caps 04/15/25 atorvastatin 40 mg tablet (Lipitor) 40 mg PO QDAY #90 tabs 05/03/25 potassium chloride 20 mEq tablet,extended release 20 meq PO QDAY supplement #180 tabs 06/23/25 spironolactone 25 mg tablet 25 mg PO DAILY #30 tabs 06/23/25 cyclobenzaprine 5 mg tablet 5 mg PO Q8H PRN PRN muscle spasm 08/09/25 gabapentin 300 mg capsule 300 mg PO TID #90 caps 08/09/25 levocetirizine 5 mg tablet 5 mg PO DAILY 08/09/25 oxycodone 5 mg tablet 5 mg PO Q6H PRN pain (scale score 7-10) 3 days #12 tabs 08/09/25 prednisone 20 mg tablet 40 mg (2 x 20 mg) PO DAILY #10 tabs 08/09/25 Hospital Course Operations None Procedures None Summary of Care Provided Hospital Course: Greater than 30 minutes spent on discharge discussing with patient, case management and social work, therapy and the community health program coordinator. Weight / BMI Weight Weight: 122.6 kg Body Mass Index (BMI) 40.9 ABG / Lab / Microbiology Data 08/09/25 05:52 08/09/25 07:40 Laboratory: Laboratory Results - last 24 hr 08/08/25 22:51: WBC 6.2, RBC 4.61, Hgb 14.3, Hct 41.6, MCV 90.2, MCH 31.0, MCHC 34.4, RDW Std Deviation 44.8 H, RDW Coeff of Ang 13.6, Plt Count 154, MPV 9.4, Immature Gran % (Auto) 0.600, Neut % (Auto) 74.4 H, Lymph % (Auto) 12.7 L, [place] % (Auto) 11.1 H, Eos % (Auto) 0.6, Baso % (Auto) 0.6, Absolute Neuts (auto) 4.6, Absolute Lymphs (auto) 0.79 L, Nucleated RBC % 0, ESR 15, Sodium 136, Potassium 4.7, Chloride 104, Carbon Dioxide 21.1, Anion Gap 11, BUN 15, Creatinine 1.21 H, Estim Creat Clear Calc 75.42, Est GFR (MDRD) Non-Af 64, BUN/Creatinine Ratio 12.2, Glucose 106 H, Lactic Acid 1.9, Calcium 10.0, Magnesium 1.7, C-React Prot Ext Range 46.50 H, Procalcitonin 0.18 H 08/09/25 02:56: POC Glucose 137 H 08/09/25 05:52: WBC 4.7, RBC 4.33 L, Hgb 13.1, Hct 38.7 L, MCV 89.4, MCH 30.3, MCHC 33.9, RDW Std Deviation 44.7 H, RDW Coeff of Ang 13.7, Plt Count 163, MPV 9.7, Immature Gran % (Auto) 0.600, Neut % (Auto) 64.5, Lymph % (Auto) 22.0, [place] % (Auto) 10.2 H, Eos % (Auto) 1.9, Baso % (Auto) 0.8, Absolute Neuts (auto) 3.0, Absolute Lymphs (auto) 1.04, Nucleated RBC % 0, ESR 13, Sodium Cancelled, Potassium Cancelled, Chloride Cancelled, Carbon Dioxide Cancelled, Anion Gap Cancelled, BUN Cancelled, Creatinine Cancelled, Estim Creat Clear Calc Cancelled, Est GFR (MDRD) Non-Af Cancelled, BUN/Creatinine Ratio Cancelled, Glucose Cancelled, Calcium Cancelled, Total Bilirubin Cancelled, AST Cancelled, ALT Cancelled, Alkaline Phosphatase Cancelled, C-React Prot Ext Range Cancelled, Total Protein Cancelled, Albumin Cancelled, Globulin Cancelled, Albumin/Globulin Ratio Cancelled 08/09/25 06:47: POC Glucose 118 H 08/09/25 07:40: Sodium 136, Potassium 3.9, Chloride 107, Carbon Dioxide 19.0 L, Anion Gap 10, BUN 18, Creatinine 1.11, Estim Creat Clear Calc 78.90, Est GFR (MDRD) Non-Af 71, BUN/Creatinine Ratio 16.4, Glucose 106 H, Calcium 9.4, Total Bilirubin 0.35, AST 18, ALT 17, Alkaline Phosphatase 102, C-React Prot Ext Range 57.00 H, Total Protein 5.8 L, Albumin 3.5, Globulin 2.4, Albumin/Globulin Ratio 1.5 Radiography Diagnostic Testing: Radiology Impression Knee X-Ray 08/08/25 23:00 IMPRESSION: As above. Reading Location: [facility] D/C Instructions DC O2, CPAP, BIPAP Needs Home O2 Discharge instructions: No Meaningful Use Info Meaningful Use Meaningful Use Diagnoses (Choose all that apply): None applicable Discharge Plan Admission Admit Date/Time: 08/09/25 00:24 Primary Reason for Your Visit: Left knee pain Attending Provider: Paco Butler Primary Care Provider: Speedy Boswell Consulting Providers: Adamaris Carrasco Discharge Orders/Prescriptions Prescriptions: New prednisone 20 mg tablet 40 mg PO DAILY Qty: 10 0RF gabapentin 300 mg capsule 300 mg PO TID Qty: 90 0RF oxycodone 5 mg tablet 5 mg PO Q6H PRN (Reason: pain (scale score 7-10)) 3 Days Qty: 12 0RF Continued temazepam 15 mg capsule 15 mg PO QHS PRN (Reason: Sleep) trazodone 50 mg tablet 50 mg PO QHS escitalopram oxalate 20 mg tablet 20 mg PO DAILY atorvastatin [Lipitor] 40 mg tablet 40 mg PO QDAY Qty: 90 3RF aspirin 81 MG tablet,chewable 81 mg PO QHS Patient Comments: TAKES WITH [facility] TO PREVENT HOT FLASHES Rx Instructions: will stop 5 day prior desloratadine 5 mg tablet 5 mg PO DAILY PRN (Reason: allergy symptoms) finasteride 5 mg tablet 5 mg PO DAILY acetaminophen 500 mg Tablet 1,000 mg PO Q8 PRN (Reason: fever or pain) cyclobenzaprine 5 mg tablet 5 mg PO Q8H PRN PRN (Reason: muscle spasm) levocetirizine 5 mg tablet 5 mg PO DAILY multivitamin [Daily Multi-Vitamin] Tablet 1 tab PO DAILY pantoprazole 40 mg tablet,delayed release (DR/EC) 40 mg PO DAILY Qty: 90 3RF clopidogrel [Plavix] 75 mg tablet 75 mg PO DAILY Qty: 90 3RF dapagliflozin propanediol [Farxiga] 10 mg tablet 10 mg PO DAILY Qty: 90 3RF carvedilol 25 mg tablet 25 mg PO BID Qty: 180 3RF ramipril 10 mg capsule 10 mg PO DAILY Qty: 90 4RF spironolactone 25 mg tablet 25 mg PO DAILY Qty: 30 3RF potassium chloride 20 mEq tablet extended release 20 meq PO QDAY Qty: 180 3RF Discontinued gabapentin 300 mg capsule 300 mg PO QHS Referrals / Follow Up: Speedy Boswell MD [Primary Care Provider] - Within 2 Weeks Disposition Disposition (needs filled in before D/C Order can be placed): Home Health Service Charges/Coding Visit Charges Inpatient E&M: 16477 Disch Hosp >30min
--- NOTE | 2025-08-09 11:50 | PHA.DC.MC.R ---
Pharmacy [facility] Counseling Pharmacy Service has performed discharge medication reconciliation and counseling for this patient. The patient's discharge medication list was reviewed for discrepancies and discrepancies were resolved. The patient was counseled on the following discharge medications and changes in medications for homegoing were reviewed. The Reason for Use, instructions for use, and potential side effects were reviewed for all new medications. The patient's questions regarding all of their medications were answered. 1. Gabapentin 300 mg PO TID 2. Oxycodone 5 mg PO Q6H PRN pain 3. Prednisone 40 mg daily x 5 days The patient was able to verbally demonstrate an understanding of their discharge medications. Medications at Discharge Home Medications aspirin 81 mg chewable tablet 81 mg PO QHS Heart health 06/09/17 temazepam 15 mg capsule 15 mg PO QHS PRN Sleep 09/21/20 trazodone 50 mg tablet 50 mg PO QHS sleep 03/22/21 escitalopram oxalate 20 mg tablet 20 mg PO DAILY 08/20/22 multivitamin (Daily Multi-Vitamin tablet) 1 tab PO DAILY 05/27/24 pantoprazole 40 mg tablet,delayed release 40 mg PO DAILY gerd #90 tabs 09/21/24 clopidogrel 75 mg tablet (Plavix) 75 mg PO DAILY blood clots #90 tabs 10/12/24 acetaminophen 500 mg tablet 1,000 mg PO Q8 PRN fever or pain 10/21/24 desloratadine 5 mg tablet 5 mg PO DAILY PRN allergy symptoms 10/21/24 finasteride 5 mg tablet 5 mg PO DAILY 10/21/24 dapagliflozin propanediol 10 mg tablet (Farxiga) 10 mg PO DAILY #90 tabs 12/10/24 carvedilol 25 mg tablet 25 mg PO BID heart #180 tabs 12/25/24 ramipril 10 mg capsule 10 mg PO DAILY #90 caps 04/15/25 atorvastatin 40 mg tablet (Lipitor) 40 mg PO QDAY #90 tabs 05/03/25 potassium chloride 20 mEq tablet,extended release 20 meq PO QDAY supplement #180 tabs 06/23/25 spironolactone 25 mg tablet 25 mg PO DAILY #30 tabs 06/23/25 cyclobenzaprine 5 mg tablet 5 mg PO Q8H PRN PRN muscle spasm 08/09/25 gabapentin 300 mg capsule 300 mg PO TID #90 caps 08/09/25 levocetirizine 5 mg tablet 5 mg PO DAILY 08/09/25 oxycodone 5 mg tablet 5 mg PO Q6H PRN pain (scale score 7-10) 3 days #12 tabs 08/09/25 prednisone 20 mg tablet 40 mg (2 x 20 mg) PO DAILY #10 tabs 08/09/25
== END 2025-08-09 13:08 | disposition home or self-care (01) ==
LOC: ED 08-09 00:34 → MS3 08-09 00:44
PROVIDERS: Admitting Provider Family Medicine; Emergency Provider Emergency Medicine; PCP Family Medicine
DX: M79.2 Neuralgia and neuritis, unspecified (principal); Z89.611 Acquired absence of right leg above knee; I11.0 Hypertensive heart disease with heart failure; I50.42 Chronic combined systolic (congestive) and diastolic (congestive) heart failure; E66.01 Morbid (severe) obesity due to excess calories; Z68.41 Body mass index [BMI] 40.0-44.9, adult; E11.40 Type 2 diabetes mellitus with diabetic neuropathy, unspecified; M25.562 Pain in left knee; Z79.82 Long term (current) use of aspirin; Z87.891 Personal history of nicotine dependence; I25.5 Ischemic cardiomyopathy; R26.2 Difficulty in walking, not elsewhere classified; R53.81 Other malaise; Z79.02 Long term (current) use of antithrombotics/antiplatelets; G47.33 Obstructive sleep apnea (adult) (pediatric); E78.2 Mixed hyperlipidemia; Z95.5 Presence of coronary angioplasty implant and graft; I25.10 Atherosclerotic heart disease of native coronary artery without angina pectoris; Z60.2 Problems related to living alone; N40.1 Benign prostatic hyperplasia with lower urinary tract symptoms; N13.8 Other obstructive and reflux uropathy; Z95.810 Presence of automatic (implantable) cardiac defibrillator; Z79.899 Other long term (current) drug therapy; K21.9 Gastro-esophageal reflux disease without esophagitis; R62.7 Adult failure to thrive
CPT/HCPCS: 36415; 73564; 80048; 80053; 82962; 83605; 83735; 84145; 85025; 85652; 86140; 94668; 96372; 96374; 97161; 97166; 99221; 99284; A4216; G0378

== ENCOUNTER 2025-10-21 13:37 | Emergency (ER) | payer MEDICARE, SELFPAY ==
[2025-10-21 13:37] VITALS: BP 117/73; PULSE 64; RESP 16; TEMP 36.8; O2SAT 96
[2025-10-21 13:46] VITALS: BMI 65.5
[2025-10-21 14:18] VITALS: BP 102/66
[2025-10-21] MEDS: fentaNYL 100 MCG/2 ML Ampul 50 MCG IV (14:34)
[2025-10-21] MEDS: 0.9% Normal Saline (1000mL) 1,000 ML 999 ML IV (14:34)
--- NOTE | 2025-10-21 14:35 | EX.ED.DYSGE1 ---
HPI History of Present Illness Chief Complaint: Flank Pain Narrative Narrative: Chief complaint and HPI: 70-year-old male with past medical history of GERD, HTN, HLD, CAD, urolithiasis presents for evaluation of left flank pain. Patient states for the past several days he has been having left flank pain. Similar to previous urolithiasis. He denies any fever, chills, shortness of breath, chest pain, nausea, vomiting, diarrhea, constipation, dysuria, testicular or penile pain. Review of systems: See HPI Medications: As listed on the chart Allergies: As listed on the chart PFSH: Per chart Vital signs: As listed on the chart. Reviewed. Physical exam: Gen: Alert and oriented, NAD Head: Normocephalic, atraumatic Eyes: No sclera icterus, conjunctiva clear ENT: Moist mucous membranes CV: RRR, no murmurs Resp: Lungs CTA BL, no w/r/c GI: Abd soft, non-distended, mildly tender to palpation in the left flank, no r/r/g : No CVA tenderness. Circumcised penis. No penile tenderness or discharge. No penile or testicular swelling. Normal lie and position of the testicles. No testicular tenderness, masses, or skin changes Musc: Moves all extremities, right lower extremity amputation Skin: Warm, dry Psych: Cooperative, appropriate mood and affect [facility] Medical History Coronary atherosclerosis of bypass graft Wears hearing aid Wears glasses Wears contact lenses Wears partial dentures Diabetes Arthritis Anemia Back pain Injury of head and neck Difficulty swallowing Phantom pain after amputation of lower extremity Stuttering History of pain when walking History of edema History of echocardiogram History of stress test Cardiology follow-up encounter Lateral epicondylitis of left elbow Left elbow pain Over 65 years old COVID-19 Fracture, humerus Fall Cancer Depression Former smoker CPAP (continuous positive airway pressure) dependence Pacemaker TIA (transient ischemic attack) Esophageal foreign body Stroke-like symptoms Paresthesia of left upper extremity Renal calculi GERD (gastroesophageal reflux disease) Chest pain Mixed hyperlipidemia Essential hypertension Obesity (BMI 30-39.9) Surgical wound dehiscence Above knee amputation of right lower extremity Debility Lymphedema of right lower extremity Automatic implantable cardioverter-defibrillator in situ Chronic systolic congestive heart failure GERD (gastroesophageal reflux disease) Atherosclerotic heart disease of [place] coronary artery without angina pectoris Shortness of breath History of 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 Ischemic cardiomyopathy (~10/30/23) Atherosclerosis of coronary artery bypass graft without angina pectoris Gastroenteritis SIRS (systemic inflammatory response syndrome) Morbid obesity with BMI of 40.0-44.9, adult Effects of radiation Acute lymphangitis of right lower extremity ICD (implantable cardioverter-defibrillator) in place (~08/17/10) Lymphedema of Right Leg CAD (coronary artery disease) Chronic Systolic CHF - EF 45% GERD (gastroesophageal reflux disease) Home Medications Medication Instructions Recorded Last Taken Type aspirin 81 mg chewable tablet 81 mg PO QHS Heart health 06/09/17 11/08/24 History temazepam 15 mg capsule 15 mg PO QHS PRN Sleep 09/21/20 06/10/24 History trazodone 50 mg tablet 50 mg PO QHS sleep 03/22/21 06/10/24 History escitalopram oxalate 20 mg tablet 20 mg PO DAILY 08/20/22 06/11/24 History multivitamin (Daily Multi-Vitamin 1 tab PO DAILY 05/27/24 06/06/24 History tablet) clopidogrel 75 mg tablet (Plavix) 75 mg PO DAILY blood clots #90 tabs 10/12/24 11/08/24 Rx acetaminophen 500 mg tablet 1,000 mg PO Q8 PRN fever or pain 10/21/24 Unknown History desloratadine 5 mg tablet 5 mg PO DAILY PRN allergy symptoms 10/21/24 Unknown History finasteride 5 mg tablet 5 mg PO DAILY 10/21/24 Unknown History dapagliflozin propanediol 10 mg 10 mg PO DAILY #90 tabs 12/10/24 Unknown Rx tablet (Farxiga) carvedilol 25 mg tablet 25 mg PO BID heart #180 tabs 12/25/24 Unknown Rx ramipril 10 mg capsule 10 mg PO DAILY #90 caps 04/15/25 Unknown Rx atorvastatin 40 mg tablet (Lipitor) 40 mg PO QDAY #90 tabs 05/03/25 Unknown Rx potassium chloride 20 mEq 20 meq PO QDAY supplement #180 tabs 06/23/25 Unknown Rx tablet,extended release gabapentin 300 mg capsule 300 mg PO TID #90 caps 08/09/25 Unknown Rx levocetirizine 5 mg tablet 5 mg PO DAILY 08/09/25 Unknown History pantoprazole 40 mg tablet,delayed 40 mg PO DAILY gerd #90 tabs 10/04/25 Unknown Rx release spironolactone 25 mg tablet 25 mg PO DAILY #30 tabs 10/04/25 Unknown Rx Allergy/AdvReac Type Severity Reaction Status Date / Time No Known Allergies Allergy Verified 10/21/25 13:38 Family History Mother CAD (coronary artery disease) Father CVA (cerebral vascular accident) Myocardial infarction Brother CAD (coronary artery disease) Hx of CABG Brother CAD (coronary artery disease) Hx of CABG Other Family history of CVA Surgical History History of implantable cardiac defibrillator (ICD) Hx of arthroscopic knee surgery H/O heart artery stent Hx of lithotripsy History of shoulder surgery History of cardiac catheterization Hx of colonoscopy Hx of esophagogastroduodenoscopy Presence of stent in coronary artery (~10/15/13) Postsurgical aortocoronary bypass status (~06/01/05) Social History (Updated 08/09/25 @ 00:[address] Adamaris Carrasco MD) household members: none Smoking Status: Former smoker how long ago did patient quit smokin alcohol intake: current alcohol intake frequency: a few times a month substance use type: does not use caffeine: Yes EXAM Physical Exam Const Vital Signs: 10/21/25 13:37 10/21/25 14:18 10/21/25 15:56 Temperature 98.2 F Temperature Source Oral Pulse Rate 64 62 Respiratory Rate 16 24 H Blood Pressure 117/73 102/66 119/54 L Blood Pressure Mean 87 78 75 Pulse Ox 96 96 Oxygen Delivery Method Room Air Room Air 10/21/25 17:00 Temperature Temperature Source Pulse Rate 56 L Respiratory Rate 20 H Blood Pressure 123/63 H Blood Pressure Mean 83 Pulse Ox 97 Oxygen Delivery Method Room Air MDM MDM MDM Narrative Medical decision making narrative: 70-year-old male with past medical history of GERD, HTN, HLD, CAD, urolithiasis presents for evaluation of left flank pain. Patient states for the past several days he has been having left flank pain. Similar to previous urolithiasis. Differential diagnosis includes but is not limited to urolithiasis, UTI, diverticulitis, myofascial spasm. On presentation, patient no acute distress, afebrile. Soft blood pressure. NS bolus, fentanyl, Zofran ordered for symptoms. Laboratory workup ordered including CT abdomen and pelvis. CBC without leukocytosis or anemia. Platelets unremarkable. CMP shows renal insufficiency with a creatinine of 1.4. On chart review, patient has a history of renal insufficiency. No transaminitis. Lipase unremarkable. Patient receiving fluids. Lactic acid unremarkable. UA negative for UTI. On reevaluation, patient's blood pressure has improved with fluids. CT abdomen pelvis shows bilateral renal stones however no urolithiasis or hydronephrosis. Perinephritic fat stranding correlate with UA. UA is negative for UTI and patient has no CVA tenderness. At this point in time no clear etiology for patient's symptoms. Pain has improved. He was updated of all results and the plan to discharge home. Tylenol as needed for pain. Follow-up with primary care physician return precautions explained. He confirmed understand the plan. Impression: 1. Left flank pain 2. Chronic renal insufficiency Lab Data Labs: Laboratory Results - last 24 hr 10/21/25 10/21/25 10/21/25 13:46 14:33 14:52 WBC 10.1 RBC 4.63 Hgb 14.1 Hct 43.1 MCV 93.1 MCH 30.5 MCHC 32.7 RDW Std Deviation 44.1 H RDW Coeff of Ang 12.9 Plt Count 289 MPV 9.6 Immature Gran % (Auto) 1.000 H Neut % (Auto) 71.2 H Lymph % (Auto) 16.9 L [place] % (Auto) 7.6 Eos % (Auto) 2.6 Baso % (Auto) 0.7 Absolute Neuts (auto) 7.2 Absolute Lymphs (auto) 1.71 Nucleated RBC % 0 Sodium 137 Potassium 4.8 Chloride 104 Carbon Dioxide 21.5 Anion Gap 12 BUN 18 Creatinine 1.40 H Estim Creat Clear Calc 82.81 Est GFR (MDRD) Non-Af 54 L BUN/Creatinine Ratio 12.9 Glucose 127 H Lactic Acid 1.2 Calcium 10.2 Total Bilirubin 0.54 AST 32 ALT 26 Alkaline Phosphatase 119 Total Protein 7.3 Albumin 4.0 Globulin 3.3 Albumin/Globulin Ratio 1.2 Lipase 40 Urine Color Yellow Urine Clarity Clear Urine pH 5.0 Ur Specific [place] 1.015 Urine Protein 30 H Urine Glucose (UA) 1000 H Urine Ketones Negative Urine Occult Blood Negative Urine Nitrite Negative Urine Bilirubin Negative Urine Urobilinogen Normal Ur Leukocyte Esterase 25 H Urine RBC 0 SEEN Urine WBC 0 SEEN Ur Squamous Epith Cells 0-5 SEEN Urine Bacteria 0 SEEN Urine Mucus 0 SEEN Radiography Diagnostic Testing: Clinical Impression(s) from Imaging Studies Abdomen/Pelvis CT 10/21/25 15:34 IMPRESSION: Perinephric fat stranding. Correlations with urinalysis is recommended. A 10 mm stone at the lower pole of the right kidney. A punctate stone at the midpole of the left kidney. No hydronephrosis. Reading Location: [facility] Discharge Plan Triage Chief Complaint: Flank Pain ED Provider: Orion Owen Dx/Rx/DC Orders Clinical Impression: Left flank pain Instructions: ED Flank Pain with Uncertain Cause Prescriptions: No Action temazepam 15 mg capsule 15 mg PO QHS PRN (Reason: Sleep) trazodone 50 mg tablet 50 mg PO QHS escitalopram oxalate 20 mg tablet 20 mg PO DAILY atorvastatin [Lipitor] 40 mg tablet 40 mg PO QDAY Qty: 90 3RF aspirin 81 MG tablet,chewable 81 mg PO QHS Rx Instructions: will stop 5 day prior desloratadine 5 mg tablet 5 mg PO DAILY PRN (Reason: allergy symptoms) finasteride 5 mg tablet 5 mg PO DAILY acetaminophen 500 mg Tablet 1,000 mg PO Q8 PRN (Reason: fever or pain) levocetirizine 5 mg tablet 5 mg PO DAILY gabapentin 300 mg capsule 300 mg PO TID Qty: 90 0RF multivitamin [Daily Multi-Vitamin] Tablet 1 tab PO DAILY clopidogrel [Plavix] 75 mg tablet 75 mg PO DAILY Qty: 90 3RF dapagliflozin propanediol [Farxiga] 10 mg tablet 10 mg PO DAILY Qty: 90 3RF carvedilol 25 mg tablet 25 mg PO BID Qty: 180 3RF ramipril 10 mg capsule 10 mg PO DAILY Qty: 90 4RF potassium chloride 20 mEq tablet extended release 20 meq PO QDAY Qty: 180 3RF pantoprazole 40 mg tablet,delayed release (DR/EC) 40 mg PO DAILY Qty: 90 3RF spironolactone 25 mg tablet 25 mg PO DAILY Qty: 30 3RF Primary Care Provider: Speedy Boswell Referrals: Speedy Bowsell MD [Primary Care Provider, Family Practice] - 3-5 Days Activity Restrictions/Additional Instructions: No clear reason for your flank pain at this time. You do have kidney stones in the kidney however these do not cause pain. Return back to ED if symptoms change or worsen. Tylenol as needed for pain. Print Language: Malay Disposition Disposition: Home, Self Care
[2025-10-21 14:49] LABS: Hematocrit 43.1 % (40-54); Hemoglobin 14.1 g/dL (13.0-16.5); Immature Granulocytes Count 0.100 X10^3/uL (0.0-0.0); Mean Corp Hgb Conc 32.7 g/dL (32-36); Mean Corpuscular Volume 93.1 fL (80-94); Mean Platelet Vol. 9.6 fl (6.2-12.0); NRBC Flagged by Analyzer 0 % (0-5); Platelet Count 289 K/mm3 (150-450); RBC Distribution Width CV 12.9 % (11.6-14.6); RBC Distribution Width SD 44.1 fl (35.1-43.9); Red Blood Count 4.63 M/mm3 (4.6-6.2); White Blood Count 10.1 K/mm3 (4.4-11.0)
[2025-10-21 14:56] LABS: Color, Urine Yellow (Yellow); Glucose, Dipstick 1000 mg/dl (Normal); Ketone-Dipstick Negative (Negative); Leukocyte Esterase-Dipstick 25 /ul (Negative); Mucous, Urine 0 SEEN /hpf (<or=2+); Nitrite-Dipstick Negative (Negative); Occult Blood-Urine Negative /ul (Negative); Protein-Dipstick 30 mg/dl (Negative); Red Blood Cells-Urine 0 SEEN /hpf (0-5); Specific Gravity, Urine 1.015 (1.002-1.030); Urine Bilirubin Dipstick Negative (Negative)
[2025-10-21 15:02] LABS: Squamous Epithelial Cells - UA 0-5 SEEN /hpf (0-5)
[2025-10-21 15:09] LABS: AST(SGOT) 32 U/L (<=37); Alanine Aminotransfer ALT/SGPT 26 U/L (<=46); Albumin, Serum 4.0 g/dL (3.4-4.8); Alkaline Phosphatase 119 U/L (40-129); Anion Gap 12 (5-15); BUN 18 mg/dL (4-19); BUN/Creat Ratio 12.9 RATIO (10-20); Calcium,Total 10.2 mg/dL (7.6-11.0); Carbon Dioxide 21.5 mmol/L (21.0-32.0); Chloride 104 mmol/L (98-108); Estimated Creatinine Clearance 82.81 ml/min (50-250); Globulin 3.3 g/dL (2.2-4.2); Glucose 127 mg/dL (70-99); Lipase 40 U/L (13-75); Potassium 4.8 mmol/L (3.3-5.1)
--- NOTE | 2025-10-21 15:34 | CT_ITS ---
PROCEDURE: ABDOMEN/PELVIS W IV CONT ONLY 10/21/2025 REASON FOR EXAM: LEFT FLANK PAIN TECHNIQUE: Procedure Code: [id number] Modality: CT Procedure: ABDOMEN/PELVIS W IV CONT ONLY Coronal and Sagittal reconstruction series were provided. CONTRAST: Isovue 370 VOLUME: 95 mL One or more dose reduction techniques were used (e.g., Automated exposure control, adjustment of the mA and/or kV according to patient size, use of iterative reconstruction technique. RADIATION DOSE SUMMARY: CTDlvol: 24.18 mGy DLP: 1324.88 mGycm COMPARISON: CT abdomen and pelvis October 21, 2024. FINDINGS: Lung bases: Atelectasis in the left lung Liver: Unremarkable. Gallbladder: Cholelithiasis. Spleen: Unremarkable. Pancreas: Unremarkable. Adrenals: Unremarkable. Kidneys: Perinephric fat stranding. A 10 mm stone at the lower pole of the right kidney. A punctate stone at the midpole of the left kidney. A 4.3 cm simple cyst at the lower pole of the left kidney. No hydronephrosis. Bladder: Unremarkable. Reproductive Organs: Unremarkable. Bowel: Scattered colonic diverticula. No bowel thickening. No evidence of acute diverticulitis. Appendix: Normal. Lymph nodes: No lymphadenopathy. Vasculature: No aneurysm. Peritoneum / Retroperitoneum: No free air or free fluid. Bones: No acute bony abnormalities. Multilevel degenerate changes of the lumbar spine. Status post total left hip replacement. CT/Abdomen/Pelvis W IV Cont ONLY IMPRESSION: Perinephric fat stranding. Correlations with urinalysis is recommended. A 10 mm stone at the lower pole of the right kidney. A punctate stone at the midpole of the left kidney. No hydronephrosis. Reading Location: [facility]
[2025-10-21 15:56] VITALS: BP 119/54; PULSE 62; RESP 24; O2SAT 96
--- NOTE | 2025-10-21 16:45 | ED.RN ---
RADIOLOGY CALLED FOR DELAY IN CT READ TIME. RESPONSE "THEY ARE IN READING IT NOW"
[2025-10-21 17:00] VITALS: BP 123/63; PULSE 56; RESP 20; O2SAT 97
[2025-10-21 17:29] VITALS: BP 120/69; PULSE 58; RESP 14; TEMP 36.6; O2SAT 99
== END 2025-10-21 17:39 | disposition home or self-care (01) ==
PROVIDERS: Emergency Provider Surgery; PCP Family Medicine; Visit Provider Surgery
DX: R10.A2 Flank pain, left side (principal); I12.9 Hypertensive chronic kidney disease with stage 1 through stage 4 chronic kidney disease, or unspecified chronic kidney disease; N18.9 Chronic kidney disease, unspecified; Z79.899 Other long term (current) drug therapy; Z87.891 Personal history of nicotine dependence
CPT/HCPCS: 74177; 80053; 81001; 83605; 83690; 85025; 96361; 96374; 96375; 99283; Q9967; A4216; J2405